=== PATIENT | female | born 2000 | race Caucasian/White ===

== ENCOUNTER 2024-07-18 10:52 | Outpatient (OUT) | payer BC, SELFPAY ==
[2024-07-18 11:22] LABS: Basophils Percent Auto 0.3 % (0.2-2.0); Eosinophils Absolute Auto 0.1 10^3/uL (0.0-0.7); Eosinophils Percent Auto 0.8 % (0.9-7.0); Hematocrit 37.3 % (36.0-48.0); Immature Granulocytes Abs Auto 0.01 10^3/uL (0.00-0.03); Immature Granulocytes Pct Auto 0.2 % (0.0-0.5); Lymphocytes Absolute Auto 1.4 10^3/uL (1.2-3.8); Lymphocytes Percent Auto 22.8 % (20.5-60.0); Mean Corpuscular HGB Conc 34.9 g/dL (29.9-35.2); Mean Corpuscular Hemoglobin 31.2 pg (26.7-34.0); Mean Corpuscular Volume 89.4 fL (81.0-99.0); Mean Platelet Volume 9.5 fL (9.5-13.5); Monocytes Absolute Auto 0.6 10^3/uL (0.3-0.8); Neutrophils Absolute Auto 4.2 10^3/uL (1.4-6.5); Neutrophils Percent Auto 66.9 % (43.0-75.0); Platelet Count 248 10^3/uL (150-450); Red Blood Count 4.17 10^6/uL (4.20-5.40); Red Cell Distribution Width 11.9 % (11.0-15.0); White Blood Count 6.2 10^3/uL (4.0-11.0)
[2024-07-18 11:25] LABS: BOX Test Reference Lab UNITY; BOX Test Sent Out UNITY
[2024-07-18 11:34] LABS: Estimated Average Glucose 97 mg/dL
[2024-07-18 11:39] LABS: Amphetamine Screen Urine NEGATIVE (NEGATIVE); Barbiturates Screen Urine NEGATIVE (NEGATIVE); Benzodiazepines Screen Urine NEGATIVE (NEGATIVE); Buprenorphine Screen Urine NEGATIVE (NEGATIVE); Cannabinoid Screen Urine NEGATIVE (NEGATIVE); Cocaine Screen Urine NEGATIVE (NEGATIVE); Methadone Screen Urine NEGATIVE (NEGATIVE); Methamphetamines Screen Urine NEGATIVE (NEGATIVE); Opiate Screen Urine NEGATIVE (NEGATIVE); Oxycodone Screen Urine NEGATIVE (NEGATIVE); Phencyclidine Screen Urine NEGATIVE (NEGATIVE); Tricyclic Antidepressant Urine NEGATIVE (NEGATIVE)
[2024-07-19 08:14] LABS: HBsAg Screen Negative (Negative); HCV Ab Non Reactive (Non Reactive); HIV Ab/p24 Ag Screen Non Reactive (Non Reactive); Rubella Antibodies, IgG 1.46 index (Immune >0.99)
[2024-07-19 10:08] LABS: Rapid Plasma Reagin, Quant Non Reactive titer (NonRea<1:1)
== END 2024-07-18 10:53 | disposition home or self-care (01) ==
LOC: LAB 10:52
PROVIDERS: PCP Family Medicine; Visit Provider Obstetrics & Gynecology
DX: Z34.01 Encounter for supervision of normal first pregnancy, first trimester (principal); Z36.0 Encounter for antenatal screening for chromosomal anomalies; N92.6 Irregular menstruation, unspecified
CPT/HCPCS: 36415; 80307; 83036; 85025; 86592; 86762; 86803; 86850; 86900; 86901; 87086; 87340; 87389

== ENCOUNTER 2024-08-31 15:34 | Outpatient (OUT) | payer BC, SELFPAY ==
[2024-08-31 16:24] LABS: Thyroid Stimulating Hormone 1.413 uIU/mL (0.358-3.740)
== END 2024-08-31 15:35 | disposition home or self-care (01) ==
LOC: LAB 15:34
PROVIDERS: PCP Family Medicine; Visit Provider Obstetrics & Gynecology
DX: E06.3 Autoimmune thyroiditis (principal)
CPT/HCPCS: 36415; 84443

== ENCOUNTER 2024-09-28 15:41 | Outpatient (OUT) | payer BC, SELFPAY ==
[2024-09-28 17:03] LABS: Thyroid Stimulating Hormone 0.836 uIU/mL (0.358-3.740)
== END 2024-09-28 15:42 | disposition home or self-care (01) ==
LOC: LAB 15:41
PROVIDERS: PCP Family Medicine; Visit Provider Obstetrics & Gynecology
DX: E06.3 Autoimmune thyroiditis (principal)
CPT/HCPCS: 36415; 84443

== ENCOUNTER 2024-10-06 13:53 | Outpatient (OUT) | payer BC, SELFPAY ==
--- NOTE | 2024-10-06 13:58 | US_ITS ---
[address] [address] Patient Name: ALETA ELLINGTON MRN: [id number] date: 2000 Sex: F Assigned Patient Location: US Current Patient Location: Accession/Order Number: [id number] Exam Date: 10/06/2024 14:25 Report Date: 10/06/2024 14:26 At the request of: SINTIA MARIE DO Procedure: US OB cervical length Cervical length ultrasound. Reason for exam: Abdominal cramping. TECHNIQUE: Transvaginal imaging of the gravid uterus was obtained. FINDINGS: Cervical length measures 4.53 cm without evidence of funneling. heart rate 158 bpm. US/US OB cervical length Impression: Normal cervical length without evidence of funneling. Impression dictated by: Jermaine Nguyễn Jr., D.O. 10/06/2024 2:26 PM Dictation Location: [place] [address] Electronically authenticated by: [id number] Y Date: 10/06/2024 14:26
== END 2024-10-06 13:54 | disposition home or self-care (01) ==
LOC: US 13:53
PROVIDERS: PCP Family Medicine; Visit Provider Obstetrics & Gynecology
DX: O26.892 Other specified pregnancy related conditions, second trimester (principal); Z3A.20 20 weeks gestation of pregnancy; R10.9 Unspecified abdominal pain
CPT/HCPCS: 76817

== ENCOUNTER 2024-10-28 18:38 | Outpatient (REF) | payer BC, SELFPAY ==
--- OUTSIDE RECORDS SUMMARY | 2024-10-28 18:44 | XMS_ITS | CCD ---
Author Organization [facility] Clini[facility] Care Team Providers Care Burrer Machine Name Role Phone BECERRIL, DAVID P Unavailable Unavailable BECERRIL, DAVID P Unavailable Unavailable BECERRIL, DAVID P Unavailable Unavailable BECERRIL, DAVID P Unavailable Unavailable BECERRIL, DAVID P Unavailable Unavailable BLANCA PABLO AM Unavailable Unavailable BLANCA PABLO AM Unavailable Unavailable SELF, REFERRED Unavailable Unavailable ROSALIE PAYNE Unavailable Unavailable Unavailable Primary Care Provider UnavailRosalie Muhammad MD Primary Care Provider DAVID DOMINGUEZ Attending Unavailable ARTIS YODER Attending Unavailable Sandeep Ramirez Unavailable Carlie Thomas Unavailable Adriana Evangelista Unavailable WILLIAM ., DR PATRICIO Admitting Unavailable WILLIAM ., DR PATRICIO Attending Unavailable REQUEST, NONE LISTED Primary Care Unavaila ble WILLIAM ., DR PATRICIO Consulting Unavailable WILLIAM ., DR PATRICIO Admitting Unavailable WILLIAM ., DR PATRICIO Attending Unavailable REQUEST, DR NONE LISTED Primary Care Unavaila ble WILLIAM ., DR PATRICIO Consulting Unavailable Kristine, Destinee Unavailable ROSALIE PAYNE Primary Care Physician Unavail able Rosalie Payne MD Primary Care Provider Pocanaly, Myron Washburn Admitting Unavailable PocosMyron Referring Unavailable Pocos, Myron Washburn Attending Unavailable Pocos, Myron Washburn Referring Unavailable Pocos, Myron Washburn Attending Unavailable Myron Rojsa Admitting Unavailable MD Rosalie Payne Primary Care Provider [phone] DO Marcelle Espinosa Attending Provider [phone] Marcelle Espinosa Attending Unavailable Marcelle Espinosa Admitting Unavailable Rosalie Payne Primary Care Unavailable Rosalie Payne MD Primary Care Provider Rosalie Payne MD Primary Care Provider Rosalie Payne MD Unavailable DOC THOMAS Attending Unavailable LINDAPRETTY Attending Unavailable WILLIAMDOC Attending Unavailable TATTERSALL, JENNIFER Attending Unavailable POCOS, MYRON Washburn Referring Unavailable PEPE KIRBY Attending Unavailable POCOS, MYRON Washburn Referring Unavailable VIEIRANEREYDA Attending Unavailable POCOS, MYRON Washburn Referring Unavailable POCOS, MYRON Washburn Referring Unavailable POCOS, MYRON Washburn Attending Unavailable POCOS, MYRON Washburn Referring Unavailable TATTERSALLJENNIFER Attending Unavailable POCOS, MYRON Washburn Referring Unavailable VIEIRA, NEREYDA Attending Unavailable POCOS, MYRON Washburn Referring Unavailable TATTERSALLJENNIFER Attending Unavailable POCOS, MYRON Washburn Referring Unavailable VIEIRANEREYDA Attending Unavailable POCOS, MYRON Washburn Referring Unavailable BROWNKELVIN Attending Unavailable BROWNKELVIN Referring Unavailable PEPE KIRBY Attending Unavailable POCOS, MYRON Washburn Referring Unavailable VIEIRANEREYDA Attending Unavailable POCOS, MYRON Washburn Referring Unavailable PEPE KIRBY Attending Unavailable POCOS, MYRON Washburn Referring Unavailable HEMEROSALIE CHRISTENSEN Attending Unavailable POCOS, MYRON Washburn Attending Unavailable Allergies Allergy Classification Reported Allergen(s) Allergy Type Date of Onset Reaction(s) Facility Latex (1 source) Latex Substance Allergy 1 [facility] Macrolides (antibiotic) (1 source) Azithromycin Drug Allergy 1 [facility] (20 sources) Azithromycin; Translations: [azithromycin] Drug Allergy 1 [facility] (10 sources) Latex; Translations: [Latex] Propensity to adverse reactions to drug 1 [facility] (1 source) Azithromycin Drug Allergy 0 [facility] (1 source) natural latex rubber Drug allergy (disorder) [facility] (2 sources) Banana Extract; Translations: [Banana] Drug Allergy Vomiting (disorder) [facility] (20 sources) Midodrine; Translations: [midodrine] Drug Allergy 3 Numbness [facility] (20 sources) Latex Allergy to substance 1 Rash [facility] (1 source) Azithromycin Drug Allergy 4 [facility] Repository (1 source) Latex Drug allergy (disorder) 4 [facility] Rep[facility] Medications Current Medications Medication Drug Class(es) Dates Sig (Normalized) Sig (Original) [id number] 200 actuat albuterol 0.09 mg/actuat metered dose inhaler (2 sources) beta2-Adrenergic Agonist Start: 08-21-2021 take 2 puff(s) by inhalation four times daily as needed Albuterol Sulfate HFA 108 (90 Base) MCG/ACT 2 puffs Inhalation 4 times a day prn Aug, Active Start: 08-21-2021 take 2 puff(s) by in halation four times daily as needed Albuterol Sulfate HFA 108 (90 Base) MCG/ACT 2 puffs Inhalation 4 times a day prn Aug, Not-Taking/PRN fluticasone propionate 0.05 mg/actuat metered dose nasal spray (4 sources) Corticosteroid Start: 04-01-2023 fluticasone (F lonase) 50 MCG/ACT nasal spray Start: 04-01-2023 take 1 spray(s) nasa l route once daily Fluticasone Propionate 50 MCG/ACT 1 spray in each nostril Nasally Once a day for 14 Mar, Active Start: 08-21-2021 take 2 spray(s) nasa l route once daily as needed Fluticasone Propionate 50 MCG/ACT 2 sprays Nasally Once a day for 14 day(s) Aug, Not-Taking/PRN Start: 08-21-2021 take 2 spray(s) nasa l route once daily Fluticasone Propionate 50 MCG/ACT 2 sprays Nasally Once a day for 14 day(s) Aug, Active ibuprofen 600 mg oral tablet (20 sources) Nonsteroidal Anti-inflammatory Drug Start: 12-14-2020 take 1 tablet by mouth four times daily as needed for pain ibuprofen (ADVIL;MOTRIN) 600 MG tablet Take 1 tablet by mouth 4 times daily as needed for Pain 30 tablet 0 12/14/2020 Active End: 07-16-2024 ibuprofen 200 MG tablet Take by mouth. 07/16/2024 Discontinued magnesium oxide 400 mg oral tablet (5 sources) Start: 07-16-2024 End: 08-15-2024 take 1 tablet by mouth once daily magnesium oxide (Mag-Ox) 400 MG tablet Indications: Cluster headache, not intractable, unspecified chronicity pattern Take 1 tablet (400 mg) by mouth Daily 30 tablet 6 07/16/2024 08/15/2024 Active ondansetron 4 mg disintegrating oral tablet (15 sources) Serotonin-3 Receptor Antagonist Start: 10-05-2024 End: 11-04-2024 take 1 tablet by mouth every six hours for nausea ondansetron ODT (Zofran-ODT) 4 MG disintegrating tablet Indications: Nausea and vomiting during ([facility]) Take 1 tablet (4 mg) by mouth every 6 (six) hours if needed for nausea or vomiting 30 tablet 3 10/05/2024 11/04/2024 Active Start: 08-26-2024 End: 09-30-2024 take 1 tablet by mouth every six hours for nausea ondansetron ODT (Zofran-ODT) 4 MG disintegrating tablet Indications: Nausea and vomiting during ([facility]) Take 1 tablet (4 mg) by mouth every 6 (six) hours if needed for nausea or vomiting 30 tablet 3 08/26/2024 09/30/2024 Active Start: 07-06-2024 End: 08-05-2024 take 1 tablet by mouth every six hours for nausea ondansetron ODT (Zofran-ODT) 4 MG disintegrating tablet Indications: Nausea and vomiting during Take 1 tablet (4 mg) by mouth every 6 (six) hours if needed for nausea or vomiting 30 tablet 2 07/06/2024 08/05/2024 Active penicillin v potassium 500 mg oral tablet (1 source) Start: 05-01-2021 take 1 tablet by mouth every eight hours Penicillin V Potassium 500 MG 1 tablet Orally tid for 10 day(s) Apr, Active tiZANidine 4 mg oral tablet (2 sources) Central alpha-2 Adrenergic Agonist Start: 12-14-2020 take 1 tablet by mouth every eight hours as needed for pain tiZANidine (ZANAFLEX) 4 MG tablet Take 1 tablet by mouth every 8 hours as needed (pain and muscle tension/cramps) 10 tablet 0 12/14/2020 Active Completed/Discontinued Medications Medication Drug Class(es) Dates Sig (Normalized) Sig (Original) acetaminophen 325 mg oral tablet (1 source) Start: 09-19-2020 End: 09-19-2020 acetaminophen (TYLENOL) tablet 650 mg Citalopram (7 sources) Serotonin Reuptake Inhibitor Citalopram Hydrobromide Not-Taking/PRN take 1 tablet by mouth once vincenzo y citalopram (CELEXA) 20 MG tablet Take 20 mg by mouth daily 0 Active Citalopram [place] bromide Active clotrimazole 10 mg oral lozenge (3 sources) Azole Antifungal Start: 05-11-2021 Clotrimazole 10 MG 1 wenceslao Mouth/Throat Three times a day for 7 day(s) Apr, Not-Taking/PRN medroxyPROGESTERone (4 sources) Progestin Depo-Provera Not-Taking/PRN Depo-Provera Act nicolle metoclopramide 10 mg oral tablet (12 sources) Dopamine-2 Receptor Antagonist Start: 07-16-2024 End: 09-30-2024 metoclopramide (Reglan) 10 MG tablet Indications: Nausea/vomiting in ([facility]) Take 1 tablet (10 mg) by mouth in the morning and 1 tablet (10 mg) at noon and 1 tablet (10 mg) in the evening. Take before meals. Take 1 tablet by mouth 30 minutes prior to meals 3 times daily as needed for nausea. 90 tablet 2 07/16/2024 09/30/2024 Discontinued naproxen sodium 550 mg oral tablet (2 sources) Nonsteroidal Anti-inflammatory Drug Start: 05-24-2021 End: 05-24-2021 naproxen sodium (ANAPROX) tablet 550 mg Start: 05-24-2021 take 1 tablet by aurea th twice daily at mealtime naproxen (NAPROSYN) 500 MG tablet Take 1 tablet by mouth 2 times daily (with meals) 20 tablet 1 05/24/2021 Active pantoprazole 40 mg delayed release oral tablet (17 sources) Proton Pump Inhibitor Start: 02-17-2024 End: 09-30-2024 take 1 tablet by mouth before mealtime pantoprazole (ProtoNix) 40 MG EC tablet Take 40 mg by mouth in the morning. Take before meals. 02/17/2024 09/30/2024 Discontinued predniSONE 20 mg oral tablet (3 sources) Start: 08-21-2021 take 1 tablet by mouth every twelve hours predniSONE 20 MG 1 tablet Orally 2 times a day for 5 day(s) Aug, Not-Taking/PRN Start: 05-01-2021 take 1 tablet by aurea th every twelve hours predniSONE 20 MG 1 tablet Orally bid for 5 day(s) Apr, Active Problems Active Problems Problem Classification Problem Date Documented Da te Episodic/Chronic Abdominal pain (11 sources) Pelvic and perineal pain; Translations: [Right lower quadrant pain] Onset: 2 Episodic Cardiac dysrhythmias (20 sources) Postural orthostatic tachycardia syndrome ; Translations: [Postural orthostatic tachycardia syndrome (POTS)] Onset: 3 12-10-2022 Chronic Cardiac dysrhythmias (4 sources) Palpitations; Translations: [Palpitations] 10-28-2024 Episodic Coagulation and hemorrhagic disorders (1 source) Qualitative platelet defects; 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] Onset: 8 Chronic Esophageal disorders (4 sources) Gastroesophageal reflux disease; Translations: [Gastro-esophageal reflux disease without esophagitis] 07-25-2023 Chronic Headache; including migraine (1 source) Cluster headache; Translations: [Cluster headache syndrome, unspecified, not intractable] 07-16-2024 Chronic Immunizations and screening for infectious disease (4 sources) Contact with and (suspected) exposure to other viral communicable diseases; Translations: [Exposure to sexually transmissible disorder] Onset: 2 Resolved: 2 Episodic Malaise and fatigue (20 sources) Fatigue; Translations: [Chronic fatigue, unspecified] Onset: 3 12-10-2022 Chronic Menstrual disorders (20 sources) Disorder of menstruation; Translations: [Irregular menstruation, unspecified] Onset: 4 02-19-2024 Chronic Nausea and vomiting (4 sources) Nausea; Translations: [Nausea] 07-25-2023 Episodic Other bone disease and musculoskeletal deformities (20 sources) [place] Schlatter disease; 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] Onset: 3 12-10-2022 Chronic Other circulatory disease (1 source) Postural orthostatic tachycardia syndrome 04-03-2023 Episodic Other complications of (1 source) Vomiting of , unspecified; Translations: [Unspecified vomiting of , unspecified as to episode of care or not applicable] 07-16-2024 Episodic Other gastrointestinal disorders (2 sources) Diarrhea; Translations: [Diarrhea, unspecified] 07-25-2023 Episodic Other gastrointestinal disorders (2 sources) Diarrhea, unspecified; Translations: [Diarrhea] 07-25-2023 Episodic Other gastrointestinal disorders (1 source) Dysphagia; Translations: [Dysphagia, unspecified] 07-25-2023 Episodic Other gastrointestinal disorders (1 source) Dysphagia, unspecified; Translations: [Dysphagia, unspecified] 07-25-2023 Episodic Other injuries and conditions due to external causes (1 source) Closed injury of head; Translations: [Unspecified injury of head, initial encounter] Episodic Other injuries and conditions due to external causes (1 source) Injury of coccyx; Translations: [Unspecified injury of lower back, initial encounter] Episodic Other injuries and conditions due to external causes (2 sources) Injury of left knee; Translations: [Unspecified injury of left lower leg, initial encounter] 12-09-2023 Episodic Other nutritional; endocrine; and metabolic disorders (20 sources) 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 imbalance; Translations: [Other obesity due to excess calories] Onset: 3 12-10-2022 Chronic Other nutritional; endocrine; and metabolic disorders (1 source) H/O: hypothyroidism 04-03-2023 Episodic Other and delivery including normal (10 sources) ; Translations: [Encounter for supervision of normal , unspecified, unspecified trimester] 07-16-2024 Episodic Other screening for suspected conditions (not mental disorders or infectious disease) (8 sources) Encounter for screening for malignant neoplasm of cervix; Translations: [Patient encounter status] Onset: 3 Episodic Other upper respiratory infections (9 sources) Streptococcal sore throat; Translations: [Strep throat] Onset: 2 Resolved: 2 Episodic Residual codes; unclassified (2 sources) Gestation period, 11 weeks; Translations: [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 ] 08-05-2024 Episodic Residual codes; unclassified (2 sources) Gestation period, 15 weeks; Translations: [15 weeks gestation of ] 09-02-2024 Episodic Residual codes; unclassified (2 sources) Gestation period, 19 weeks; Translations: [19 weeks gestation of ] 09-30-2024 Episodic Residual codes; unclassified (2 sources) Gestation period, 23 weeks; Translations: [23 weeks gestation of ] 10-28-2024 Episodic Substance-related disorders (20 sources) Cigarette smoker ; Translations: [Nicotine dependence, cigarettes, uncomplicated] Onset: 3 12-10-2022 Chronic Superficial injury; contusion (1 source) Contusion of left knee; Translations: [Contusion of left knee, initial encounter] Episodic Thyroid disorders (20 sources) Gabby thyroiditis; Translations: [Autoimmune thyroiditis] Onset: 3 12-10-2022 Chronic Unclassified (2 sources) Unknown / UNK(Unknown) Onset: Past or Other Problems Problem Classification Problem Date Documented Da te Episodic/Chronic Chronic obstructive pulmonary disease and bronchiectasis (1 source) Bronchitis, not specified as acute or chronic Onset: 08-21-2021 Resolved: 08-21-2021 Episodic Influenza (5 sources) Influenza; Translations: [Influenza A] Mycoses (1 source) Candidal stomatitis Onset: 05-11-2021 Resolved: 05-11-2021 Episodic Other circulatory disease (4 sources) Orthostatic hypotension; Translations: [ORTHOSTATIC HYPOTENSION] Onset: 03-13-2017 Episodic Other circulatory disease (20 sources) Low blood pressure; Translations: [Hypotension, unspecified] Onset: 12-10-2022 12-10-2022 Episodic Other non-traumatic joint disorders (20 sources) Pain in left knee; Translations: [Pain in joint, lower leg] Onset: 04-22-2023 04-22-2023 Episodic Other nutritional; endocrine; and metabolic disorders (20 sources) Body mass index 25-29 - overweight; Translations: [Overweight] Onset: 12-10-2022 Resolved: 02-19-2024 12-10-2022 Episodic Ovarian cyst (20 sources) Cyst of ovary; Translations: [Unspecified ovarian cyst, unspecified side] Onset: 12-10-2022 12-10-2022 Episodic Results Test Name Value Interpretation Reference Range Facility Urinalysis macro (dipstick) panel (U)on 10-28-2024 Bilirubin, UA Positive Negative - 4(70) +++ mg/dL [facility] Blood, UA Negative Negative - 50 Randall/mcL [facility] Clarity, UA Clear [facility] Color, UA Yellow [facility] Glucose, UA Positive Negative - 1999(110) ++++ mg/dL [facility] Interpretation and review of laboratory results Abnormal [facility] Ketones, UA Positive Negative - 160(16) ++++ mg/dL [facility] Leukocytes, UA Negative Negative - 500+++ Rick/mcL [facility] Nitrite, UA Negative Negative - Positive [facility] pH, UA 6 5 - 9 [facility] Protein, UA Positive Negative - 1999(20) ++++ mg/dL [facility] Spec Grav, UA 1.03 1 - 1.03 [facility] Urobilinogen, UA 0.2 0.2 - 12 mg/dL [facility] US OB CERVICAL LENGTHon 09-16 [place] [address] Ultrasound Report Signed Patient: ALETA CASTRO MR#: [id number] : 2000 Acct:[id number] Age/Sex: 24 / F ADM Date: 10/06/24 Loc: US Attending Dr: Doc Thomas D.O. Ordering Physician: Doc Thomas D.O. Date of Service: 10/06/24 Procedure(s): US OB cervical length Accession Number(s): [id number] cc: Doc Thmoas D.O.; ROSALIE PAYNE [place] [id number] Patient Name: ALETA CASTRO MRN: [id number] date: 2000 Sex: F Assigned Patient Location: US Current Patient Location: US Accession/Order Number: [id number] Exam Date: 10/06/2024 14:25 Report Date: 10/06/2024 14:26 At the request of: DOC THOMAS DO Procedure: US OB cervical length Cervical length ultrasound. Reason for exam: Abdominal cramping. TECHNIQUE: Transvaginal imaging of the gravid uterus was obtained. FINDINGS: Cervical length measures 4.53 cm without evidence of funneling. heart rate 158 bpm. US/US OB cervical length Impression: Normal cervical length without evidence of funneling. Impression dictated by: Jermaine Nguyễn Jr., D.O. 10/06/2024 2:26 PM Dictation Location: [place] [address] Electronically authenticated by: [id number] Y Date: 10/06/2024 14:26 Dictated By: Jermaine Nguyễn M.D. Signed By: 10/06/24 1428 DD/ 1426 TD/TT: Skin Diver: [facility] Radiology, Radiologevon rai MD - 10/06/2024 [place] [address] Ultrasound Report Signed Patient: ALETA CASTRO MR#: [id number] : 2000 Acct:[id number] Age/Sex: 24 / F ADM Date: 10/06/24 Loc: US Attending Dr: Doc Thomas D.O. Ordering Physician: Doc Thomas D.O. Date of Service: 10/06/24 Procedure(s): US OB cervical length Accession Number(s): [id number] cc: Doc Thomas D.O.; ROSALIE PAYNE [place] [address] Patient Name: ALETA CASTRO MRN: [facility]:[id number] date: 2000 Sex: F Assigned Patient Location: Current Patient Location: US Accession/Order Number: [id number] Exam Date: 10/06/2024 14:25 Report Date: 10/06/2024 14:26 At the request of: DOC THOMAS DO Procedure: US OB cervical length Cervical length ultrasound. Reason for exam: Abdominal cramping. TECHNIQUE: Transvaginal imaging of the gravid uterus was obtained. FINDINGS: Cervical length measures 4.53 cm without evidence of funneling. heart rate 158 bpm. US/US OB cervical length Impression: Normal cervical length without evidence of funneling. Impression dictated by: Jermaine Nguyễn Jr., D.O. 10/06/2024 2:26 PM Dictation Location: [place] [address] Electronically authenticated by: [id number] Y Date: 10/06/2024 14:26 Dictated By: Jermaine Nguyễn M.D. Signed By: 10/06/24 1428 DD/ 142 TD/TT: Skin Diver: [facility] Radiology Study observation (narrative) [facility] US OB CERVICAL LENGTHOrdered By: Radiologist Radiology on 10-06-2024 [facility] Work Phone: US OB 14+ WEEKS ANATOMY SCAN on 09-30-2024 US OB 14+ WEEKS ANATOMY SCAN FINDINGS: A single, live intrauterine is present with normal cardiac rate of 146 beats per minute. Normal activity and amniotic fluid volume. Morphology is grossly normal. The cervix is long and closed, 4.1cm. The placenta is posterior inferior aspect 4.0 cm from the closed internal cervical os. The current sonographic age is 20 weeks and 0 days, based on the following measurements: BPD 4.5 cm (19 weeks, 4 days) Head Circumference 17.1cm (19 weeks,5 days) Abdominal Circumference 15.2cm (20 weeks, 3 days) Femur Length 3.3cm ( 20weeks, 3 days) Presentation Cephalic Placenta Posterior Weight (g) by Percentile 85.3 % * These measurements result in an estimated date of delivery of February 17, 2025 The current estimated weight is 3 45 +/-52 grams ( pound, 12 ounces). IMPRESSION: Single, live intrauterine , current sonographic age of 20 weeks and 0 days, with an estimated date of delivery of February 17, 2025 * Estimated Weight (g) by Percentile is based upon an accurate estimated age based on last menstrual period. TRANSCRIBED BY: ELECTRONICALLY SIGNED BY: Jermaine Beard MD Normal Not Available Comment on above: Order Comment: US OB ANATOMY SINGLE W US OB CERVICAL LENGTH Estimated Date of Delivery: 02/20/25 Gestational Age as of 09/02/2024: 15w4d Urinalysis macro (dipstick) panel (U)on 09-30-2024 Bilirubin, UA Negative Negative - 4(70) +++ mg/dL [facility] Blood, UA Negative Negative - 50 Randall/mcL [facility] Clarity, UA Clear [facility] Color, UA Yellow [facility] Glucose, UA Negative Negative - 1999(110) ++++ mg/dL [facility] Interpretation and review of laboratory results Normal [facility] Ketones, UA Negative Negative - 160(16) ++++ mg/dL [facility] Leukocytes, UA Negative Negative - 500+++ Rick/mcL [facility] Nitrite, UA Negative Negative - Positive [facility] pH, UA 6 5 - 9 [facility] Protein, UA Negative Negative - 1999(20) ++++ mg/dL [facility] Spec Grav, UA 1.005 1 - 1.03 [facility] Urobilinogen, UA 1.0 0.2 - 12 mg/dL [facility] ALL THYROID STIM HORMONEon 0 - TSH Qn 0.836 m[IU]/L [facility] macro (dipstick) panel (U)on 09-02-2024 Bilirubin, UA Negative Negative - 4(70) +++ mg/dL [facility] Blood, UA Negative Negative - 50 Randall/mcL [facility] Clarity, UA Clear [facility] Color, UA Yellow [facility] Glucose, UA Negative Negative - 1999(110) ++++ mg/dL [facility] Interpretation and review of laboratory results Normal [facility] Ketones, UA Negative Negative - 160(16) ++++ mg/dL [facility] Leukocytes, UA Negative Negative - 500+++ Rick/mcL [facility] Nitrite, UA Negative Negative - Positive [facility] pH, UA 6 5 - 9 [facility] Protein, UA Negative Negative - 1999(20) ++++ mg/dL [facility] Spec Grav, UA 1.025 1 - 1.03 [facility] Urobilinogen, UA 0.2 0.2 - 12 mg/dL [facility] ALL THYROID STIM HORMONEon 0 08-31-2024 TSH Qn 1.413 m[IU]/L [facility] Urinalysis macro (dipstick) panel (U)on 08-05-2024 Bilirubin, UA Negative Negative - 4(70) +++ mg/dL [facility] Blood, UA Negative Negative - 50 Randall/mcL [facility] Clarity, UA Clear [facility] Color, UA Yellow [facility] Glucose, UA Negative Negative - 1999(110) ++++ mg/dL [facility] Interpretation and review of laboratory results Abnormal [facility] Ketones, UA Positive Negative - 160(16) ++++ mg/dL [facility] Comment on above: 40 Leukocytes, UA Trace Negative - 500+++ Rick/mcL [facility] Nitrite, UA Negative Negative - Positive [facility] pH, UA 6.5 5 - 9 [facility] Protein, UA Negative Negative - 1999(20) ++++ mg/dL [facility] Spec Grav, UA 1.025 1 - 1.03 [facility] Urobilinogen, UA 1.0 0.2 - 12 mg/dL [facility] BOX TESTon 07-18-2024 [facility] TB DRUG SCREEN RAPID (URINE )on 07-18-2024 AMPHETAMINE SCREEN URINE Negative NEGATIVE [facility] BARBITURATES SCREEN URINE Negative NEGATIVE [facility] BENZODIAZEPINES SCREEN URINE Negative NEGATIVE [facility] BUPRENORPHINE SCREEN URINE Negative NEGATIVE [facility] Comment on above: DRUG CLASS TEST SYST EM CUT-OFF CONCENTRATIONS ARE FOLLOWS: AMP (Amphetamine): 500 ng/mL BAR (Barbiturates): 200 ng/mL BZO (Benzodiazepines): 150 ng/mL BUP (Buprenorphine): 10 ng/mL ROMA (Cocaine): 150 ng/mL mAMP (Methamphetamine): 500 ng/mL MTD (Methadone): 200 ng/mL OPI (Opiates): 100 ng/mL OXY (Oxycodone): 100 ng/mL PCP (Phencyclidine): 25 ng/mL THC (Cannabinoids): 50 ng/mL TCA (Trycyclic Antidepressants): 300 ng/mL CANNABINOID SCREEN URINE Negative NEGATIVE [facility] COCAINE SCREEN URINE Negative NEGATIVE [facility] METHADONE SCREEN URINE Negative NEGATIVE [facility] METHAMPHETAMINES SCREEN URINE Negative NEGATIVE [facility] OPIATE SCREEN URINE Negative NEGATIVE [facility] OXYCODONE SCREEN URINE Negative NEGATIVE [facility] PHENCYCLIDINE SCREEN URINE Negative NEGATIVE [facility] TRICYCLIC ANTIDEPRESSANT URINE Negative NEGATIVE [facility] CLINISYNC [facility] HCG ( test) Ql (U)o n 07-16-2024 Interpretation and review of laboratory results Abnormal [facility] Preg Test, Ur Positive Negative [facility] US OB TRANSVAGINALon 025 US OB TRANSVAGINAL EXAM: US OB TRANSVAG INAL HISTORY: Dating. LMP was 05/16/2024. . COMPARISON: None available TECHNIQUE: Two-dimensional transvaginal grayscale and color Doppler ultrasound imaging of the pelvis was performed. FINDINGS: The uterus demonstrates a normal homogeneous echotexture. The cervical os is closed. The right ovary measures 2.8 x 1.9 x 2.4 cm and demonstrates a normal echotexture. There is normal color Doppler flow. The left ovary measures 2.1 x 1.7 x 2.0 cm and demonstrates a normal echotexture. There is normal color Doppler flow. No fluid is present within the cul-de-sac. There is a single, live intrauterine gestation identified with a heart rate of 174 beats per minute and a crown-rump length measurement of 2.1 cm, correlating to a gestational age of 8 weeks 5 days (+/- 5 days). There is no subchorionic hemorrhage visualized. A yolk sac is visualized. IMPRESSION: 1. Single, live intrauterine gestation 8 weeks, 5 days by LMP. Today's ultrasound measurements correlate with a gestational age of 8 weeks 5 days (+/- 5 days). KIRK by today's ultrasound is 02/20/2025. 2. Normal color Doppler evaluation of the bilateral ovaries. Interpreted by: Electronically signed by REZA BOATENG II, MD, PHD at 19-Jul-2024 08:55:15 PM [facility] Normal Not Available Comment on above: Order Comment: US OB TRANSVAGINAL No LMP recorded. Urinalysis macro (dipstick) panel (U)on 07-16-2024 Bilirubin, UA Negative Negative - 4(70) +++ mg/dL [facility] Blood, UA Negative Negative - 50 Randall/mcL [facility] Clarity, UA Clear [facility] Color, UA Yellow [facility] Glucose, UA Negative Negative - 2000(110) ++++ mg/dL [facility] Interpretation and review of laboratory results Normal [facility] Ketones, UA Negative Negative - 160(16) ++++ mg/dL [facility] Leukocytes, UA Negative Negative - 500+++ Rick/mcL [facility] Nitrite, UA Negative Negative - Positive [facility] pH, UA 6.5 5 - 9 [facility] Protein, UA Negative Negative - 2000(20) ++++ mg/dL [facility] Spec Grav, UA 1.02 1 - 1.03 [facility] Urobilinogen, UA 1.0 0.2 - 12 mg/dL [facility] CBC W Auto Differential pane l (Bld)on 02-21-2024 Band form neutrophils (Bld) [#/Vol] CANCELED [facility] Comment on above: Result canceled by t he ancillary. Band form neutrophils/100 WBC (Bld) CANCELED % [facility] Comment on above: Result canceled by t he ancillary. Basophils (Bld) [#/Vol] 19 10*3/uL [facility] Basophils/100 WBC (Bld) 0.4 % [facility] Blasts (Bld) [#/Vol] CANCELED 0 cells/uL [facility] Comment on above: Result canceled by t he ancillary. Blasts/100 WBC (Bld) CANCELED % [facility] Comment on above: Result canceled by t he ancillary. Eosinophils (Bld) [#/Vol] 91 10*3/uL [facility] Eosinophils/100 WBC (Bld) 1.9 % [facility] Erythrocyte distribution width (RBC) [Ratio] 12.5 % 11.0 - 15.0 % [facility] Hematocrit (Bld) [Volume fraction] 38.9 % 35.0 - 45.0 % [facility] Hemoglobin (Bld) [Mass/Vol] 12.8 g/dL 11.7 - 15.5 g/dL [facility] Lymphocytes (Bld) [#/Vol] 1282 10*3/uL [facility] Lymphocytes/100 WBC (Bld) 26.7 % [facility] MCH (RBC) [Entitic mass] 30.6 pg 27.0 - 33.0 pg [facility] MCHC (RBC) [Mass/Vol] 32.9 g/dL 32.0 - 36.0 g/dL [facility] Comment on above: For adults, a slight decrease in the calculated MCHC value (in the range of 30 to 32 g/dL) is most likely not clinically significant; however, it should be interpreted with caution in correlation with other red cell parameters and the patient's clinical condition. MCV (RBC) [Entitic vol] 93.1 fL 80.0 - 100.0 fL [facility] Metamyelocytes (Bld) [#/Vol] CANCELED 0 cells/uL [facility] Comment on above: Result canceled by t he ancillary. Metamyelocytes/100 WBC (Bld) CANCELED % [facility] Comment on above: Result canceled by t he ancillary. Monocytes (Bld) [#/Vol] 422 10*3/uL [facility] Monocytes/100 WBC (Bld) 8.8 % [facility] Myelocytes (Bld) [#/Vol] CANCELED 0 cells/uL [facility] Comment on above: Result canceled by t he ancillary. Myelocytes/100 WBC (Bld) CANCELED % [facility] Comment on above: Result canceled by t he ancillary. Neutrophils (Bld) [#/Vol] 2986 10*3/uL [facility] Neutrophils/100 WBC (Bld) 62.2 % [facility] Nucleated RBC (Bld) [#/Vol] CANCELED 0 cells/uL [facility] Comment on above: Result canceled by t he ancillary. Nucleated RBC/100 WBC (Bld) [Ratio] CANCELED 0 /100 WBC [facility] Comment on above: Result canceled by t he ancillary. Platelet mean volume (Bld) [Entitic vol] 9.3 fL 7.5 - 12.5 fL [facility] Platelets (Bld) [#/Vol] 291 10*3/uL [facility] Promyelocytes (Bld) [#/Vol] CANCELED 0 cells/uL [facility] Comment on above: Result canceled by t he ancillary. Promyelocytes/100 WBC (Bld) CANCELED % [facility] Comment on above: Result canceled by t he ancillary. RBC (Bld) [#/Vol] 4.18 10*6/uL [facility] Service comment (Unsp spec) [Interp] CANCELED [facility] Comment on above: Result canceled by t he ancillary. Variant lymphocytes/100 WBC (Bld) CANCELED 0 - 10 % [facility] Comment on above: Result canceled by t he ancillary. WBC (Bld) [#/Vol] 4.8 10*3/uL [facility] Iron and Iron binding capaci ty panelon 02-21-2024 Iron [Mass/Vol] 101 ug/dL [facility] Iron binding capacity [Mass/Vol] 340 [facility] Iron saturation [Mass fraction] 30 [facility] Laboratory - Chemistry and C hemistry - challengeon 02-21-2024 Albumin [Mass/Vol] 4.8 g/dL 3.6 - 5.1 g/dL [facility] Albumin/Globulin [Mass ratio] 1.8 {ratio} [facility] ALP [Catalytic activity/Vol] 65 U/L 31 - 125 U/L [facility] ALT [Catalytic activity/Vol] 16 U/L 6 - 29 U/L [facility] AST [Catalytic activity/Vol] 14 U/L 10 - 30 U/L [facility] Bilirubin [Mass/Vol] 0.6 mg/dL 0.2 - 1 .2 mg/dL [facility] Calcium [Mass/Vol] 9.3 mg/dL 8.6 - 10. 2 mg/dL [facility] Chloride [Moles/Vol] 107 mmol/L 98 - 11 0 mmol/L [facility] CO2 [Moles/Vol] 24 mmol/L 20 - 32 mmol/L [facility] Cortisol [Mass/Vol] 14.3 ug/dL mcg/dL [facility] Comment on above: Reference Range: For 8 a.m.(7-9 a.m.) Specimen: 4.0-22.0 Reference Range: For 4 p.m.(3-5 p.m.) Specimen: 3.0-17.0 * Please interpret above results accordingly * Creatinine [Mass/Vol] 0.71 mg/dL 0.50 - 0.96 mg/dL [facility] GFR/1.73 sq M.predicted among non-blacks MDRD (S/P/Bld) [Vol rate/Area] 122 mL/min/{1.73_m2} > OR = 60 mL/min/1.73m 2 [facility] Globulin (S) [Mass/Vol] 2.6 g/dL [facility] Glucose [Mass/Vol] 95 mg/dL 65 - 99 mg/dL [facility] Comment on above: Fasting reference interval Potassium [Moles/Vol] 4.2 mmol/L 3.5 - 5.3 mmol/L [facility] Protein [Mass/Vol] 7.4 g/dL 6.1 - 8.1 g/dL [facility] Sodium [Moles/Vol] 139 mmol/L 135 - 146 mmol/L [facility] Urea nitrogen [Mass/Vol] 16 mg/dL 7 - 25 mg/dL [facility] Urea nitrogen/Creatinine [Mass ratio] SEE NOTE: [facility] Comment on above: Not Reported: BUN an d Creatinine are within reference range. Laboratory - Serology - non- microon 02-21-2024 Thyroglobulin Ab Qn 153 [IU]/mL High < or = 1 IU/mL [facility] TPO Ab Qn 27 [IU]/mL High NINF [facility] No Panel Informationon 02-20 Interpretation and review of laboratory results Abnormal [facility] Performing Organizat ion Information Site ID: QTW Name: [facility] Address: [address] [place] [id number] Director: Urvashi Gtz [facility] Performing Organizat ion Information Site ID: QPT Name: [facility] Address: [address] [place] [address], [address] [place] [address] Director: Yonis Beck MD [facility] T3, [facility] 02-05-2024 Free T3 [Mass/Vol] 3.6 pg/mL Normal 2.3-4.2 [facility] Comment on above: Performed By: #### 8 47, [id number], 86 #### [facility] [address], [address] [place] [address] Rn Cardiac Cath: Yonis Beck MD T4, FREE 02-05-2024 Free T4 [Mass/Vol] 1.1 ng/dL Normal 0.8-1.8 [facility] Comment on above: Order Comment: FASTI NG:NO FASTING: NO Performed By: #### 8 91, 75981, 546 #### [facility] [address], [address] [place] [address] Rn Cardiac Cath: Yonis Beck MD TSHon 02-05-2024 TSH Qn 1.98 m[IU]/L Normal [facility] Comment on above: Result Comment: Refe rence Range > or = 20 Years 0.40-4.50 Ranges First trimester 0.26-2.66 Second trimester 0.55-2.73 Third trimester 0.43-2.91 Performed By: #### 8 99, [id number], 866 #### [facility] [address], [address] [place] [address] Rn Cardiac Cath: Yonis Beck MD MR KNEE LEFT WO IV CONTRASTo n 10-18-2023 MR KNEE LEFT WO IV CONTRAST Exam: MR KNEE LEFT WO IV CONTRAST History: Knee pain. Technique: Multiplanar multisequence MRI of the knee was performed without contrast. Comparison: Radiographs September 25, 2023 Findings: Quadriceps and patellar tendons are intact. Small joint effusion. Postsurgical changes of anterior cruciate ligament reconstruction. The ACL graft is intact. The posterior cruciate ligament is intact. The medial collateral ligament, lateral collateral ligament, and popliteus are intact. Truncation of the inner margin of the body of the lateral meniscus may be postsurgical or due to incomplete radial tear. The medial meniscus is intact. No well-defined or measurable cartilage defect. Popliteal fossa structures are intact. No Jon cyst. IMPRESSION: Incomplete radial tear of the inner margin of the body of the lateral meniscus versus postsurgical changes. ELECTRONICALLY SIGNED BY: Rupesh Spivey DO Normal Not Available HCG ( test) Ciro quintanilla Ql (U)Ordered By: Marcelle Espinosa on 09-02-2023 HCG ( test) Ql (U) Negative [facility] HCG,Urineon 09-02-2023 Beta HCG ( test) Ql (U) Negative Normal [facility] Comment on above: Result Comment: PERF ORMED BY: [place] [address] PATHOLOGIST TALLOW MAKER RAYMOND SUERO M.D. Performed By: #### U HCG #### [address] 09-02-2023 L Specimen: [id number] Received: 09/03/23 Status: SOUT Req Num: [id number] Spec Type: Surgical Subm Dr: Marcelle Espinosa DO Tissues: A Small Intestine - Biopsy/Polyp (SMALL BOWEL BX) B GASTRIC FOR HP (GASTRIC HP) C Esophagus Biopsy (DISTAL ESOPHAGUS) D Esophagus Biopsy (PROXIMAL ESOPHAGUS) E Colon Biopsy (RANDOM RT COLON) F Colon Biopsy (RANDOM LT COLON) Procedures: HE/12, Gross/Micro L4/6, H PYLORI, IHC First AB Age/ Patient Sex Location Account Attending Physician Aleta Castro / [id number] Marcelle Espinosa DO SPEC NUM: [id number] RECD: 09/03/23 STATUS: FRANKLYN GONZALES NUM: [id number] MIRIAM: 09/02/23- SUBM DR: Marcelle Espinosa DO ENTERED: 09/03/[address] [facility] [address]: SPEC TYPE: Surgical DEPT: S ORDERED: HE/12, Gross/Micro L4/6, H PYLORI, IHC First AB ORDERED: HE/12, Gross/Micro L4/6, H PYLORI, IHC First AB Pathological Diagnosis A, small bowel biopsy: -Small bowel mucosa with minor suggested chronic duodenitis, otherwise without erosion, villous blunting, or any abnormal or significant lymphocytic exocytosis identified, therefore also no obvious features of celiac sprue or gluten hypersensitivity observed B, gastric biopsy: -Antral and oxyntic mucosa with mild reactive gastropathy, including occasionally noted eosinophils in deeper stroma of the antral fragment, and minor congestion in the other fragment, otherwise without intestinal metaplasia, erosion, or any significant stromal chronic inflammation observed -H. pylori immunostain with appropriate control is also negative for identified Helicobacter organism or infection C, distal esophagus biopsy: -Esophageal squamous mucosa without any specific diagnostic abnormality observed D, proximal esophagus biopsy: -Esophageal squamous mucosa with mild squamous acanthosis and occasionally associated Specimen: [id number] Received: 09/03/23 Status: FRANKLYN Gonzales Num: [id number] Spec Type: Surgical Subm Dr: Marcelle Espinosa DO Tissues: A Small Intestine - Biopsy/Polyp (SMALL BOWEL BX) B GASTRIC FOR HP (GASTRIC HP) C Esophagus Biopsy (DISTAL ESOPHAGUS) D Esophagus Biopsy (PROXIMAL ESOPHAGUS) E Colon Biopsy (RANDOM RT COLON) F Colon Biopsy (RANDOM LT COLON) Procedures: , Gross/Micro L4/6, H PYLORI, IHC First AB Patient: Aleta Castro [id number] (Continued) Specimen: [id number] Received: 09/03/23 (Continued) Pathological Diagnosis (Continued) Signed (signature on file) Heather Villegas MD 09/05/23 1417 Specimen: [id number] Received: 09/03/23 Status: FRANKLYN Gonzales Num: [id number] Spec Type: Surgical Subm Dr: Marcelle Espinosa DO Tissues: A Small Intestine - Biopsy/Polyp (SMALL BOWEL BX) B GASTRIC FOR HP (GASTRIC HP) C Esophagus Biopsy (DISTAL ESOPHAGUS) D Esophagus Biopsy (PROXIMAL ESOPHAGUS) E Colon Biopsy (RANDOM RT COLON) F Colon Biopsy (RANDOM LT COLON) Procedures: , Gross/Micro L46, H PYLORI, IHC First AB Patient: MatthewAleta N [id number] (Continued) Specimen: [id number] Received: 09/03/23 (Continued) Pathological Diagnosis (Continued) lymphocytic exocytosis, otherwise also without any other diagnostic abnormality identified E, random right colon biopsy: -Colonic mucosa without any abnormal stromal chronic inflammation, or any other specific features of microscopic colitis identified F, random left colon biopsy: -Colonic mucosa showing changes similar to the part E specimen except 1 noted lymphoid aggregate, otherwise also without microscopic colitis, or any other specific or significant histopathological changes observed Clinical Information Nausea, abdominal pain, GERD, dysphagia. Rule out celiac, rule out H. pylori, rule out EOE and rule out microscopic colitis. Gross Description Received are 6 formalin filled containers each labeled with the patient's name, date of and specific specimen site. A. Further labeled small bowel BX are 2 reno mucosal tissue fragments each measuring 0.2 x 0.2 x 0.1 cm, entirely submitted in A1. B. Further labeled gastric BX are 2 reno mucosal tissue fragments measuring 0.2 x 0.2 x 0.1 cm and 0.1 x 0.1 x 0.1 cm, entirely submitted in B1. C. Further labeled distal esophagus BX are 2 reno mucosal tissue fragments each measuring 0.2 x 0.1 x 0.1 cm, entirely submitted (more content not included)... Normal [facility] Insurance Correspondence Off iceon 05-08-2023 Insurance Correspondence Office [id number]#[id number] FF Normal [facility] IntraOperative Documentson 0 04-29-2023 IntraOperative Documents [id number]#1.00TIF F [facility] Postoperative Documentson Postoperative Documents [id number]#1.00TIF F [facility] Main OR Intraoperative Recor don 04-25-2023 Main OR Intraoperative Record IntraOp Document Type FT Summary Primary Physician: Myron Rojas DO Finalized Date/Time: 04/25/23 09:04:33 Pt. Name: ALETA CASTRO/Sex: 2000 Female Med Rec #: [id number] Physician: Myron Rojas DO Financial #: [id number] Pt. Type: A Room/Bed: [place] [address] Admit/Disch: 04/23/23 06:25:15 - 04/23/23 14:50:00 Institution: Case Times FT Entry 1 Patient Times In Room 04/23/23 08:50:00 Out Room 04/23/23 10:59:00 Procedure Times Start 04/23/23 09:17:00 Stop 04/23/23 10:54:00 Anesthesia Times Start 04/23/23 08:50:00 Stop 04/23/23 10:59:00 Block Timeout w04/23/23 07:56:00 Anesthesia Last Modified By: Souleymane MCQUEEN, Lyle Haas 04/23/23 10:59:30 General Comments: Left adductor canal nerve block performed by using ultrasound guidance. RICHAR Clark to assist with the block. Patient's heartrate 89, [id number]% on room air. patient tolerated block well. Patient transported back to ASU bay 4 via cart. Patient placed on continous monitor, cart wheels locked and call light in reach. 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 Last Modified By: Souleymane RN, Lyle Comer RN, Lyle Comer RN, Lyle Haas 04/23/23 10:59:32 04/23/23 10:59:32 04/23/23 10:59:32 Entry 4 Entry 5 Entry 6 Case Attendee Regulo Rodgers Laura C Wilhelm CST, Benjamin Role Performed Staff - Other Scrub - Primary BUS AND TROLLEY INSPECTING DISPATCHER/SA Time In 04/23/23 08:50:00 04/23/23 08:50:00 04/23/23 08:50:00 Time Out 04/23/23 10:59:00 04/23/23 10:59:00 04/23/23 10:59:00 Procedure KNEE ARTHROSCOPY W/ ACL KNEE ARTHROSCOPY W/ ACL KNEE ARTHROSCOPY W/ ACL REPAIR(Left) REPAIR(Left) REPAIR(Left) Comments 2ND SCRUB AT THE SURGICAL FIELD Last Modified By: Souleymane MCQUEEN, Lyle Comer RN, Lyle Comer RN, Lyle Haas 04/23/23 10:59:32 04/23/23 10:59:32 04/23/23 10:59:32 General Comments: Fatou Ponce, arthrex rep., present in OR for surgical case Perioperative Protocols FT Pre-Care Text: Implements protective measures prior to operative or invasive procedure, confirms identity before the operative or invasive procedure, verifies operative procedure, surgical site, and laterality Entry 1 Procedure(s) KNEE ARTHROSCOPY W/ ACL Patient Identity Birthday, ID Band REPAIR(Left) Verified (select at Check, Patient least 2): Participation Consents / H and P Anesthesia Consent, Operative Site Present Verified HandP, Surgery/Procedure Marking Verified Consent Surgical Site Yes Laterality Verified Yes Verified Procedure Verified Yes Correct Patient Yes Position Verified Availability Equipment, Implant, Prep Dry Yes Verified (If Medication Applicable) PreOp Antibiotic Yes Time Out Diony Way, Given Participants Myron Rojas DO, Krupp RN, Ana Maria Bennett Kendall R, Blanca Urbie Wilhelm CST, Benjamin Time Out Complete 04/23/23 09:16:00 Outcomes Met? Yes Last Modified By: Lyle Comer RN 04/23/23 09:23:35 Post-Care Text: The patient is free from signs and symptoms of injury caused by extraneous objects Allergy Information FT Pre-Care Text: Verifies allergies Entry 1 Allergies Reviewed? Yes Allergies Reviewed Self/Patient With Outcomes Met? Yes Last Modified By: Lyle Comer RN 04/23/23 08:08:13 Post-Care Text: The patient received appropriate medication(s) safely administered during the perioperative period Surgical Procedures FT Entry 1 Procedure Description Procedure KNEE ARTHROSCOPY W/ ACL Modifiers Left REPAIR Surgeon Description LEFT KNEE ARTHROSCOPY,ANTERIOR LIGAMENT CRUCIATE RECONSTRUCTION, AUTO BONE TENDON BONE, INTERNAL BRACE Primary Procedure Yes Primary Surgeon Myron Rojas DO Start 04/23/23 09:17:00 Stop 04/23/23 10:54:00 Anesthesia Type General Surgical Service Orthopedics Wound Class 1 - Clean Last Modified By: Lyle Comer RN 04/23/23 11:02:21 General Case Data FT Pre-Care Text: Classifies surgical wound, implements aseptic technique, initiates traffic control Entry 1 Case Information OR OR 4 FT Case Level Level 4 Wound Class 1 - Clean Specialty Orthopedics ASA Class 2 Preop Diagnosis LEFT KNEE ACL TEAR Postop Same As Preop Yes Postop Diagnosis LEFT KNEE ACL TEAR Outcomes Met? Yes Last Modified By: Lyle Comer RN 04/23/23 09:18:54 Post-Care Text: The patient is free from signs and symptoms of infection Skin Assessment (Pre Procedure) FT Pre-Care Text: Implements (more content not included)... Normal [facility] Consent for Anesthesiaon Consent for Anesthesia [id number]#[id number] IFF Normal [facility] Discharge Instructionson Discharge Instructions [id number]#1.00T IFF Normal [facility] IntraOperative Documentson 0 04-24-2023 IntraOperative Documents [id number]#1.00T IFF Normal [facility] Operative Reporton Operative Report SURGERY DATE: 2023 [employer] PLANT MANAGER: Garry Camacho CST PREOPERATIVE DIAGNOSIS: Left knee anterior cruciate ligament tear POSTOPERATIVE DIAGNOSIS: Left knee anterior cruciate ligament tear OPERATION: Left knee diagnostic operative arthroscopy with autograft [id number] anterior cruciate ligament reconstruction with InternalBrace augmentation ANESTHESIA: General as well as regional block ANESTHESIOLOGIST: KARTHIKEYAN Peacock ESTIMATED BLOOD LOSS: 10 mL INTRAVENOUS FLUIDS: Please see the operative record SPECIMEN: None COMPLICATIONS: None IMPLANTS: Arthrex [id number] Tightrope system with the button for the same, an 8 x 20 mm anterior cruciate ligament Bio composite screw. On the tibial side on the InternalBrace a 4.75 mm SwiveLock x1. INDICATIONS: Summer is a 22-year-old white female who had a sustained injury to her left knee. She is found to have a suspected anterior cruciate ligament tear. She did have appropriate workup that does show this and the recommendation for the above procedure is made. The procedure is undertaken this day. INTRAOPERATIVE PATHOLOGY: Upon dissection of the left knee with the arthroscope, there is noted to be no significant patellofemoral or medial compartment pathology. Meniscus is fully intact. The intercondylar notch does show the anterior cruciate ligament avulsion apparently from the femur. There is some fibrillation of the ligament. This does appear to be subacute in nature and does correlate clinically. Latterly meniscus fully intact. No cartilage defect. The anterior cruciate ligament was reconstructed using [id number] from patellar tendon autograft with this InternalBrace augmentation. This is the Arthrex TightRope system as described. PROCEDURE: After informed consent is obtained, the risks, complications, reasonable expectations of the above procedure are discussed at length. The patient is taken to the Operative Suite and placed on the operating room table in supine position. At this point, she is given a general anesthetic. This was preceded by a regional block. She is then appropriately positioned with a well-padded tourniquet to the left thigh. The leg in the leg rodríguez. The foot of the table is lowered. The knee is sterilely prepped and draped in the usual surgical fashion, at which time, the site verification is undertaken with a time-out procedure. Landmarks are identified. The limb is exsanguinated with an Esmarch. The tourniquet inflated to 300 mm. Standard lateral portal is instilled, the camera is placed, the above pathology is noted. Next under direct visualization, standard medial portal was instilled. This was for instrumentation. The above pathology is noted. After identifying no meniscal pathology, the isolated anterior cruciate ligament injury, the focus is to graft harvest. A longitudinal incision is made anteriorly. The dissection is carried down onto the level of the patellar tendon. The peritenon is elevated. The focus is first to the patellar block. This is taken in the standard fashion with a template using small sagittal saw. A 10 mm offset scalpel was then utilized to take the central third of the patellar tendon down to the tibial tubercle where the same saw and instrumentation are used to harvest the tibial bone block. The graft is elevated, taken to the back table. The first assistance does then prepare the graft. The area is thoroughly irrigated. The excess bone debris from graft preparation is placed back in the patellar harvest site. The patella tendon is closed with 0 Vicryl, the peritenon and over the harvest sites with 2-0 Vicryl. The scope is then replaced back into the knee joint. The stump of the anterior cruciate ligament is then removed followed by the notchplasty accordingly. The graft is meanwhile again being prepared on the back table. The measuring device for anterior to posterior size of the femur is identified to identify the femoral tunnel. The guide for the femoral tunnel is then placed. A separate incision is made longitudinally and laterally through the IT band. The guide is placed down onto the lateral femoral cortex and in the appropriate position. At this point, the FlipCutter is utilized to enter the knee. This is set to 10 mm and back reamed accordingly after tamping the guide into place. At this point, excess bone debris is removed and the FiberLoop is applied. This is luggage tagged accordingly through the lateral portal. The focus is then to the tibial tunnel. The guide for the tibia is then identified. This is placed in the standard position. The guide pin is placed followed by over reaming with a 10 mm lamp shade maker. Excess bone debris is again removed. The FiberLoop is then brought out through the tibial tunnel. The graft is taken across the tibial tunnel into the knee. The button is taken out the lateral femur. The femoral bone block is advanced into the knee. This is then manipulated into the femoral tunnel. This did seat quite nicely. This is tensioned on the femo (more content not included)... Normal [facility] Comment on above: Result Comment: Elec tronically Signed By: Myron Rojas DO\.br\Date and Time Signed: 04/24/23 07:15 EST Preoperative Documentson Preoperative Documents [id number] IFF [facility] Consent for Procedure/Surger yon 04-23-2023 Consent for Procedure/Surgery [id number] F [facility] Consent for Treatmenton Consent for Treatment [id number] F [facility] Discharge Instructionson Discharge Instructions ALETA CASTRO :2000 Visit Date:04/23/2023 Inpatient Discharge Instructions Your Care Team Admitting Physician - Myron Rojas DO Referring Physician - Myron Rojas DO Reason for Your Visit LEFT KNEE ACL TEAR This Is Your Medications List acetaminophen-oxycodone (Percocet 5 mg-325 mg oral tablet) aspirin (Ecotrin 325 mg Tab-EC) Procedure History Laparoscopic left ovarian cystectomy, Ovarian cyst. What to do next New Follow Up Appointments after Discharge Follow Up with Myron Rojas When: 05/03/2023 11:00 AM EST Comments: Appointment has already been scheduled. Call for any problems. Where: [address] [place] [id number] [address] (1) Medications What How Much When Instructions Next Dose New acetaminophen-oxycodone (Percocet 5 mg-325 mg oral tablet) 1 Tablets By Mouth As Directed 1-2 po Q4-6h prn pain Dx: S83.512D Duration: [address] [facility]/pharmacy #[id number] New aspirin (Ecotrin 325 mg Tab-EC) 1 Tablets By Mouth Every day Pickup at [facility]/pharmacy #[address] [facility]/pharmacy #[id number]: [address] [place], [place] [phone] Allergies Banana (Throat tightness, Hives, Vomiting) Latex (Hives, Swelling) azithromycin (Hives) midodrine (Numbness) Education Materials [place], [place] [facility] DISCHARGE INSTRUCTIONS: ANTERIOR CRUCIATE LIGAMENT GRAFT MEDICATIONS: You will be given a prescription for pain medication. This should be taken as needed and try to take this with food. Pain medication can cause nausea, constipation, diarrhea, and restlessness and should only be used as needed. When you are able to tolerate Tylenol this should be used instead. Take 1 Ecotrin Aspirin (325 mg) Daily for the next 3 weeks. WOUND CARE: Change your dressing PostOp Day 5. As the nursing staff has instructed, you should continue daily dressing changes with Betadine liquid applied then a dry sterile dressing. This should be performed once or twice daily. You may begin to get your incision wet in the shower at five days if the incision is dry. Do not soak in the tub or otherwise submerge the incision until nadia are removed. Any increase in pain, temperature or redness should be promptly reported to the office. ACTIVITY: You will be given a protocol of the Cruciate Ligament Reconstruction Program and therapy and this should be followed. After starting physical therapy, they will advise you when it is safe to begin to bear weight with crutches. Generally this is performed after you obtain good leg strength, unless a meniscus repair has been performed as well. DIET: You may begin to progress your regular home diet as tolerated. You should continue to increase fluids for the first two to three days after surgery. ANESTHESIA PRECAUTIONS: You should not operate a vehicle (automobile, bicycle, motorcycle), machinery or power tools, make any important decisions or drink alcoholic beverages for 24 hours. You should not consume alcoholic beverages within 12 hours of using you pain medication. DRIVING: Do not drive. EXPECTATIONS OF SURGERY: Your pain will continue to decrease day by day. You may experience swelling from time to tome and this should be treated with elevation of the leg as well. Any increased pain should be promptly reported to my office. FOLLOW-UP APPOINTMENT: You will be given a care for a follow-up appointment in the office, usually within 10 to 14 days. You will continue physical therapy until the time of your office visit. Any further questions may be discussed with Physical Therapy, or please contact the office for further clarification or any concerns. ___ Myron Rojas, DO [facility] [address] [place] [address] Reviewed: 06-23 Revised: 03/29 Common Emergency Awareness Tips IS IT A STROKE? Act FAST and Check for these signs: FACE Does the face look uneven? ARM Does one arm drift down? SPEECH Does their speech sound strange? TIME Call at any sign of stroke Heart Attack Signs Chest discomfort: Most heart attacks involve discomfort in the center of the chest and lasts more than a few minutes, or goes away and comes back. It can feel like uncomfortable pressure, squeezing, fullness or pain. Discomfort in upper body: Symptoms can include pain or discomfort in one or both arms, back, neck, jaw or stomach. Shortness of breath: With or without discomfort. Other signs: Breaking out in a cold sweat, nausea, or lightheaded. Remember, MINUTES DO MATTER. If you experience any of these heart attack warning signs, call to get immediate medical attention! Patient Survey You may receive a survey in the mail asking you about your stay with us. We want to hear from you, please share your experie (more content not included)... Normal [facility] Comment on above: Result Comment: Elec tronically Signed By: Marcelo MCQUEEN, Shyla Acevedo\.br\Date and Time Signed: 04/23/23 10:58 EST H&P Updateon 04-23-2023 H&P Update [id number] F Normal [facility] Main OR PACU I [facility] Main OR PACU I Record PACU Phase I Document Type FT Summary Primary Physician: Myron Rojas DO Finalized Date/Time: 04/23/23 12:22:33 Pt. Name: ALETA CASTRO/Sex: 2000 Female Med Rec #: [id number] Physician: Myron Rojas DO Financial #: [id number] Pt. Type: A Room/Bed: 06/16 Admit/Disch: 04/23/23 06:25:15 - Institution: Case Times PACU I FT Pre-Care Text: Identifies barriers to communication and implements measures to provide psychological support Develops individualized plan of care, and ensures continuity of care Maintains patient's dignity and privacy, and maintains patient confidentiality Identifies and reports philosophical, cultural, and spiritual beliefs and values Identifies individual values and wishes concerning care Implements aseptic technique, and administers prescribed antibiotic therapy and immunizing agents as ordered Evaluates postoperative tissue perfusion Implements thermoregulation measures, and monitors body temperature Evaluates postoperative respiratory status Evaluates postoperative cardiac status Evaluates postoperative neurological status Assesses pain control, collaborated in initiating patient-controlled analgesia and implements alternative methods of pain control Verifies allergies, administers prescribed medications and solutions, evaluates response to medications Entry 1 In PACU I 04/23/23 11:00:00 Discharge from PACU 04/23/23 11:58:00 I Outcomes Met? Yes Last Modified By: Valencia Jimenez RN 04/23/23 12:22:18 Post-Care Text: The patient demonstrates knowledge of the expected response to the operative or invasive procedure The patient's care is consistent with the individualized perioperative plan of care The patient's right to privacy is maintained The patient's value system, lifestyle, ethnicity, and culture are considered, respected, and incorporated into the perioperative plan of care The patient participates in decisions affecting his or her perioperative plan of care The patient is free from signs and symptoms of infection The patient has wound/tissue perfusion consistent with or improved from baseline levels established preoperatively The patient is at or returning to normothermia at the conclusion of the immediate postoperative period The patient's respiratory function is consistent with or improved from baseline levels established preoperatively The patient's cardiovascular status is consistent with or improved from baseline levels established preoperatively The patient's cardiovascular status is consistent with or improved from baseline levels established preoperatively The patient demonstrates and/or reports adequate pain control throughout the perioperative period The patient received appropriate medication(s), safely administered during the perioperative period Acuity Level PACU I FT Entry 1 Start Time 04/23/23 11:00:00 Stop Time 04/23/23 11:58:00 Acuity Level Acuity Level I Last Modified By: Valencia Jimenez RN 04/23/23 12:22:29 Finalized By: Valencia Jimenez RN Document Signatures Signed By: Valencia Jimenez RN 04/23/23 12:22 [facility] Main OR Preoperative Recordo n 04-23-2023 Main OR Preoperative Record PreOp Document Type FT Summary Primary Physician: Myron Rojas DO Finalized Date/Time: 04/23/23 08:50:41 Pt. Name: ALETA CASTRO /Sex: 2000 Female Med Rec #: [id number] Physician: Myron Rojas DO Financial #: [id number] Pt. Type: A Room/Bed: [place] [address] Admit/Disch: 04/23/23 06:25:15 - Institution: Case Times PreOp FT Pre-Care Text: Verifies consent for planned procedure, identifies individual values and wishes concerning care, includes family members in perioperative teaching Entry 1 Patient Times. In Pre Surgery 04/23/23 06:35:00 Out Pre Surgery 04/23/23 08:48:00 Outcomes Met? Yes Last Modified By: Lyle Comer RN 04/23/23 08:50:40 Post-Care Text: The patient participates in decisions affecting his or her perioperative plan of care Finalized By: Lyle Comer RN Document Signatures Signed By: Lyle Comer RN 04/23/23 08:[address] [facility] Monitor [facility] 04-23-2023 Monitor Record [id number] 2019 [id number] FF [facility] Operative Reporton Operative Report Patient: AILEEN CASTRO Age: 22 years Sex: Female : 2000 Associated Diagnoses: None Author: Cyrus Modi DO Procedure Nerve Block Block Type: Adductor canal block. Laterality: Left. Informed consent for anesthesia management: Anesthesia options discussed including nerve block, Description of the procedure, risks, benefits, and alternatives was provided, The patient's questions were addressed. Time out: Confirmed correct patient, procedure and site. Time: Date/Time 04/23/2023 07:57:00. Indication: Block for postoperative pain management as requested by surgeon. Anesthesia Method: IV Sedation with monitored anesthesia care, The patient remained awake and able to interact in a meaningful way throughout the procedure. Preparation: The patient was placed in the following position Sitting, Continuous pulse oximetry applied, Using maximal sterile barrier technique per current [facility] guidelines including hand hygeine, Guidance (Ultrasound used to identify anatomical landmarks, Using sterile gel and probe covers, Permanent image retained), The site was prepped with ChloraPrep. Procedure: Anesthetic Agent 0.5% Ropivacaine (20mL) with 4mg Decadron, Catheter size 21 guage, Catheter length 100 mm, Needle was inserted without pain or parasthesia in the conscious patient, Number of attempts 1, Negative attempt at aspiration for blood, Medial and lateral spread of the anesthestic was observed, Periodic negative attempts at aspiration of blood were made as the local was injected, No pain or parathesia were elicited with injection of the anesthetic in the conscious patient, It was idetified that the correct anesthetic agent was administered to the correct site, Site post-procedure care Transparent dressing applied. Complications: None, The patient tolerated the procedure as expected. Normal [facility] Comment on above: Result Comment: Elec tronically Signed By: Cyrus Modi DO\.br\Date and Time Signed: 04/23/23 07:56 EST Patient Education - Texton 0 04-23-2023 Patient Education - Text [place], [place] [facility] DISCHARGE INSTRUCTIONS: ANTERIOR CRUCIATE LIGAMENT GRAFT MEDICATIONS: You will be given a prescription for pain medication. This should be taken as needed and try to take this with food. Pain medication can cause nausea, constipation, diarrhea, and restlessness and should only be used as needed. When you are able to tolerate Tylenol this should be used instead. Take 1 Ecotrin Aspirin (325 mg) Daily for the next 3 weeks. WOUND CARE: Change your dressing PostOp Day 5. As the nursing staff has instructed, you should continue daily dressing changes with Betadine liquid applied then a dry sterile dressing. This should be performed once or twice daily. You may begin to get your incision wet in the shower at five days if the incision is dry. Do not soak in the tub or otherwise submerge the incision until nadia are removed. Any increase in pain, temperature or redness should be promptly reported to the office. ACTIVITY: You will be given a protocol of the Cruciate Ligament Reconstruction Program and therapy and this should be followed. After starting physical therapy, they will advise you when it is safe to begin to bear weight with crutches. Generally this is performed after you obtain good leg strength, unless a meniscus repair has been performed as well. DIET: You may begin to progress your regular home diet as tolerated. You should continue to increase fluids for the first two to three days after surgery. ANESTHESIA PRECAUTIONS: You should not operate a vehicle (automobile, bicycle, motorcycle), machinery or power tools, make any important decisions or drink alcoholic beverages for 24 hours. You should not consume alcoholic beverages within 12 hours of using you pain medication. DRIVING: Do not drive. EXPECTATIONS OF SURGERY: Your pain will continue to decrease day by day. You may experience swelling from time to tome and this should be treated with elevation of the leg as well. Any increased pain should be promptly reported to my office. FOLLOW-UP APPOINTMENT: You will be given a care for a follow-up appointment in the office, usually within 10 to 14 days. You will continue physical therapy until the time of your office visit. Any further questions may be discussed with Physical Therapy, or please contact the office for further clarification or any concerns. ___ Myron Rojas DO [facility] [address] [place] [id number] Reviewed: 06-23 Revised: 03/[address] [facility] Progress Note-Physicianon Progress Note-Physician Patient: ALETA CASTRO Age: 22 years Sex: Female : 2000 Associated Diagnoses: None Author: [facility] ()Cyrus Postoperative Information Postoperative disposition: Postoperative disposition: To PACU. Anesthetic utilized: General. Health Status Allergies: Allergic Reactions (Selected) Severity Not Documented Azithromycin- Hives. Banana- Hives, throat tightness and vomiting. Latex- Hives and swelling. Midodrine- Numbness. Current medications: (Selected) Inpatient Medications Ordered HYDROmorphone 1 mg/mL injectable solution: 0.4 mg = 0.4 mL, Injection, IV Push, q4min PRN Pain for 5 dose(s), Stop date Limited # of times, Routine, Start date 04/23/23 10:56:00 EST, 04/23/23 10:56:00 EST Lactated Ringers IV Kelly 1000 mL 1,000 mL: 1,000 mL, IV, 100 mL/hr, Routine, Start date 04/23/23 10:56:00 EST, 10 hour(s), Total volume (mL): 1,000, 78 kg, 1.89, m2 Lactated Ringers IV Kelly 1000 mL 1,000 mL: 1,000 mL, IV, 125 mL/hr, Routine, Start date 04/23/23 10:57:00 EST, 8 hour(s), Total volume (mL): 1,000, 78 kg, 1.89, m2 Lactated Ringers IV Kelly 1000 mL 1,000 mL: 1,000 mL, IV, 150 mL/hr, Routine, Start date 04/23/23 6:45:00 EST, 6.7 hour(s), Total volume (mL): 1,000, 78 kg, 1.89, m2 Zofran 4 mg/2 mL Injection: 4 mg = 2 mL, Injection, IV Push, Once PRN Nausea/Vomiting, Routine, Start date 04/23/23 10:56:00 EST, 04/23/23 10:56:00 EST Zofran 4 mg/2 mL Injection: 4 mg = 2 mL, Injection, IV Push, q4hr PRN Nausea/Vomiting, Routine, Start date 04/23/23 10:57:00 EST, 04/23/23 10:57:00 EST acetaminophen 325 mg Tab: 650 mg = 2 tab(s), Tab, Oral, q4hr PRN Pain/Fever, Routine, Start date 04/23/23 10:57:00 EST, 04/23/23 10:57:00 EST acetaminophen-oxycodone 325 mg-5 mg Tab: 1 tab(s), Tab, Oral, q6hr PRN Pain 4-7 for 5 day(s), Stop date 04/28/23 10:56:00 EST, Routine, Start date 04/23/23 10:57:00 EST acetaminophen-oxycodone 325 mg-5 mg Tab: 2 tab(s), Tab, Oral, q6hr PRN Pain 4-7 for 5 day(s), Stop date 04/28/23 10:56:00 EST, Routine, Start date 04/23/23 10:57:00 EST promethazine additive 12.5 mg + Sodium Chloride 0.9% IV Kelly 50 mL (INT) 50 mL: Injection, IV Piggyback, Once, Stop date 04/23/23 11:00:00 EST, Routine, Start date 04/23/23 11:00:00 EST, 151.5 mL/hr, Infuse over 20 minute(s) Prescriptions Prescribed Ecotrin 325 mg Tab-EC: 325 mg = 1 tab(s), Oral, Daily, # 21 tab(s), Refills(s) 0, Pharmacy: [facility]/pharmacy #[id number], 165, cm, 04/04/23 6:11:00 EST, Height/Length Dosing, 78, kg, 04/04/23 6:11:00 EST, Weight Dosing Percocet 5 mg-325 mg oral tablet: 1 tab(s), Oral, As Directed, 40 tab(s), Refill(s) 0, 1-2 po Q4-6h prn pain Dx: S83.512D Duration: 7 days, [facility]/pharmacy #[id number], 165, cm, 04/04/23 6:11:00 EST, Height/Length Dosing, 78, kg, 04/04/23 6:11:00 EST, Weight Dosing, Home Medications (2) Active Ecotrin 325 mg Tab-EC 325 mg = 1 tab(s), Oral, Daily Percocet 5 mg-325 mg oral tablet 1 tab(s), Oral, As Directed Problem list: All Problems H/O: hypothyroidism / SNOMED CT 531687176 / Confirmed POTS (postural orthostatic tachycardia syndrome) / SNOMED CT 9530696502 / Confirmed Physical Examination Vital Signs 04/23/2023 10:55 EST Heart Rate Monitored 87 bpm bpm Respiratory Rate 16 br/min br/min SpO2 100 % % 04/23/2023 10:54 EST Systolic Blood Pressure 100 mmHg mmHg Diastolic Blood Pressure 61 mmHg mmHg 04/23/2023 10:51 EST Systolic Blood Pressure 99 mmHg mmHg Diastolic Blood Pressure 54 mmHg mmHg 04/23/2023 10:50 EST Heart Rate Monitored 93 bpm bpm Respiratory Rate 22 br/min br/min SpO2 100 % % 04/23/2023 10:48 EST Systolic Blood Pressure 108 mmHg mmHg Diastolic Blood Pressure 59 mmHg mmHg 04/23/2023 10:45 EST Heart Rate Monitored 89 bpm bpm Respiratory Rate 19 br/min br/min Systolic Blood Pressure 109 mmHg mmHg Diastolic Blood Pressure 50 mmHg mmHg SpO2 100 % % 04/23/2023 10:42 EST Systolic Blood Pressure 105 mmHg mmHg Diastolic Blood Pressure 53 mmHg mmHg 04/23/2023 10:40 EST Heart Rate Monitored 101 bpm bpm Respiratory Rate 19 br/min br/min SpO2 100 % % 04/23/2023 10:39 EST Systolic Blood Pressure 103 mmHg mmHg Diastolic Blood Pressure 52 mmHg mmHg 04/23/2023 10:36 EST Systolic Blood Pressure 108 mmHg mmHg Diastolic Blood Pressure 47 mmHg mmHg 04/23/2023 10:35 EST Heart Rate Monitored 102 bpm bpm Respiratory Rate 19 br/min br/min SpO2 100 % % 04/23/2023 10:33 EST Systolic Blood Pressure 105 mmHg mmHg Diastolic Blood Pressure 51 mmHg mmHg 04/23/2023 10:30 EST Heart Rate Monitored 100 bpm bpm Respiratory Rate 17 br/min br/min Systolic Blood Pressure 106 mmHg mmHg Diastolic Blood Pressure 51 mmHg mmHg SpO2 100 % % 04/23/2023 10:27 EST Systolic Blood Pressure 108 mmHg mmHg Diastolic Blood Pressure 50 mmHg mmHg 04/23/2023 10:25 EST Heart Rate Monitored 101 bpm bpm Respiratory Rate 16 br/min br/min SpO2 100 % % 04/23/2023 10:24 EST Systolic Blood Pressure 107 mmHg mmHg Diastolic Blood Pressure 49 mmHg mmHg 04/23/2023 10:21 EST Systolic Blood Pressure 1 (more content not included)... Normal [facility] Comment on above: Result Comment: Elec tronically Signed By: Cyrus Modi DO\.br\Date and Time Signed: 04/23/23 11:06 EST Progress Note-Physician Patient: ALETA CASTRO Age: 22 years Sex: Female : 2000 Associated Diagnoses: None Author: Myron Rojas DO Postoperative Information Procedure: L knee scope, ACL recon Preoperative Diagnosis: L ACL tear. Postoperative Diagnosis: same. Performed by: daniel. Bellman Captain: Roby Camacho. Specimens Removed: none. Prosthesis: Arthrex. . Estimated Blood Loss: 10 ml. Complications: None. Anesthesia type: General, block. Normal [facility] Comment on above: Result Comment: Elec tronically Signed By: Myron Rojas DO\.br\Date and Time Signed: 04/23/23 10:54 EST Progress Note-Physician Patient: ALETA CASTRO Age: 22 years Sex: Female : 2000 Associated Diagnoses: None Author: Cyrus Modi DO Preoperative Information Anesthesia history: Patient history: None. Family history+: None. Anesthesia results Informed consent: Signed by patient. Including risks, benefits, and alternatives related to the: Anesthetic plan, Postoperative pain management plan. Re-evaluation prior to induction: Cyrus Clement DO. Health Status Allergies: Allergic Reactions (Selected) Severity Not Documented Azithromycin- Hives. Banana- Hives, throat tightness and vomiting. Latex- Hives and swelling. Midodrine- Numbness., Allergies (4) Active Severity Reaction Latex Swelling, Hives midodrine Numbness azithromycin Hives Banana Vomiting, Hives, Throat tightness Current medications: (Selected) Inpatient Medications Ordered Lactated Ringers IV Kelly 1000 mL 1,000 mL: 1,000 mL, IV, 150 mL/hr, Routine, Start date 04/23/23 6:45:00 EST, 6.7 hour(s), Total volume (mL): 1,000, 78 kg, 1.89, m2 cefazolin additive + Sodium Chloride 0.9% intravenous solution 50 mL: 2 gram = 1 EA, Powder-Inj, IV Piggyback, PREOP, Routine, Start date 04/23/23 6:45:00 EST, 100 mL/hr, Infuse over 30 minute(s) Prescriptions Prescribed Ecotrin 325 mg Tab-EC: 325 mg = 1 tab(s), Oral, Daily, # 21 tab(s), Refills(s) 0, Pharmacy: [facility]/pharmacy #[id number], 165, cm, 04/04/23 6:11:00 EST, Height/Length Dosing, 78, kg, 04/04/23 6:11:00 EST, Weight Dosing Percocet 5 mg-325 mg oral tablet: 1 tab(s), Oral, As Directed, 40 tab(s), Refill(s) 0, 1-2 po Q4-6h prn pain Dx: S83.512D Duration: 7 days, [id number], 165, cm, 04/04/23 6:11:00 EST, Height/Length Dosing, 78, kg, 04/04/23 6:11:00 EST, Weight Dosing, Home Medications (2) Active Ecotrin 325 mg Tab-EC 325 mg = 1 tab(s), Oral, Daily Percocet 5 mg-325 mg oral tablet 1 tab(s), Oral, As Directed , Medications (2) Active Scheduled: (1) ceFAZolin + Sodium Chloride 0.9% Minibag 50 mL 2 gram 1 EA, IV Piggyback, PREOP Continuous: (1) Lactated Ringers 1,000 mL 1,000 mL, IV, 150 mL/hr PRN: (0) Problem list: All Problems H/O: hypothyroidism / SNOMED CT 984440236 / Confirmed POTS (postural orthostatic tachycardia syndrome) / SNOMED CT 9315646590 / Confirmed, Active Problems (2) H/O: hypothyroidism POTS (postural orthostatic tachycardia syndrome) Histories Past Medical History: No active or resolved past medical history items have been selected or recorded. Family History: No family history items have been selected or recorded. Procedure history: Laparoscopic left ovarian R/o ([id number]). Ovarian cyst removal ([id number]). Social History Social & Psychosocial Habits Alcohol 04/23/2023 Risk Assessment: Denies Alcohol Use Substance Abuse 04/23/2023 Risk Assessment: Denies Substance Abuse Tobacco 04/23/2023 Risk Assessment: Medium Risk 04/23/2023 Smokeless tobacco use: Current vaping or e-cigar Type: Vaping . Physical Examination Vital Signs 04/23/2023 7:00 EST Apical Heart Rate 74 bpm 04/23/2023 6:48 EST Heart Rate Monitored 79 bpm Systolic Blood Pressure 122 mmHg Diastolic Blood Pressure 74 mmHg Mean Arterial Pressure, Monitered 90 mmHg 04/23/2023 6:47 EST Heart Rate Monitored 86 bpm SpO2 98 % 04/23/2023 6:46 EST Respiratory Rate 16 br/min 04/23/2023 6:46 EST Temperature Oral 36.6 DegC 04/23/2023 6:46 EST Systolic Blood Pressure 118 mmHg Diastolic Blood Pressure 76 mmHg Mean Arterial Pressure, Monitered 90 mmHg Vital Signs (last 24 hrs) Last Charted Temp Oral 36.6 DegC (APR 23 06:46) Heart Rate Apical 74 bpm (APR 23 07:00) SBP 122 mmHg (APR 23 06:48) DBP 74 mmHg (APR 23 06:48) Measurements from flowsheet : Measurements 04/23/2023 7:12 EST Height/Length Measured 165 cm Weight Measured 78 kg Airway: Mallampati classification: II (soft palate, fauces, uvula visible). Distance: Mentohyoid, Interincisive, Thyromental, Mentosternal, Adequate. HENT: Normocephalic. Respiratory: Lungs are clear to auscultation. Cardiovascular: Regular rhythm. Gastrointestinal: Soft. Review / Management Results review: Lab results: 04/23/2023 6:58 EST U beta hCG Ql Negative . Plan [place] [employer]esthesiologists (ASA) physical status classification: Class II. Anesthetic Preoperative Plan: Anesthesia General. Regional Adductor Canal Block Left. Normal [facility] Comment on above: Result Comment: Elec tronically Signed By: [facility] ()Cyrus.br\Date and Time Signed: 04/23/23 07:41 EST U BetaHcg Qualon 04-23-2023 HCG.beta subunit (U) [Moles/Vol] Negative Normal [facility] Comment on above: Performed By: #### 2 [id number] ####[facility] [address] [place] [address] Consent for Procedure/Surger yon 04-16-2023 Consent for Procedure/Surgery [id number] F Normal [facility] CBC w/ Auto Diffon 4 Basophil Absolute 0.0 E9/L Normal 0.0-0.2 [facility] Comment on above: Performed By: #### 2 [id number] ####[facility] [address] [place] [address] Basophils/100 WBC (Bld) 0.4 % Normal 0.0-2.0 [facility] Comment on above: Performed By: #### 2 407573 ####[facility] [address] [place] [address] Eos Absolute 0.1 E9/L Normal 0.0-0.5 [facility] Comment on above: Performed By: #### 2 138517 ####[address] [address] Eosinophils/100 WBC (Bld) 1.0 % Normal 0.0-8.0 [facility] Comment on above: Performed By: #### 2 [id number] ####[address] [address] Erythrocyte distribution width (RBC) [Ratio] 12.6 % Normal 10.9-14.2 [facility] Comment on above: Performed By: #### 2 086945 ####[facility] [address] [place] [address] Hematocrit (Bld) [Volume fraction] 39.0 % Normal 34.0-46.0 [facility] Comment on above: Performed By: #### 2 251484 ####[facility] [address] [place] [address] Hemoglobin (Bld) [Mass/Vol] 13.1 g/dL Normal 12.0-16.0 [facility] Comment on above: Performed By: #### 2 999171 ####[facility] [address] [place] [address] Lymph Absolute 1.4 E9/L Normal 1.0-4.0 [facility] Comment on above: Performed By: #### 2 992803 ####[address] [address] Lymphocytes/100 WBC (Bld) 22.2 % Normal 14.0-50.0 [facility] Comment on above: Performed By: #### 2 693203 ####[address] [address] MCH (RBC) [Entitic mass] 30.6 pg Normal 27.0-34.0 [facility] Comment on above: Performed By: #### 2 661677 ####[address] [address] MCHC (RBC) [Mass/Vol] 33.7 g/dL Normal 31.4-36.0 [facility] Comment on above: Performed By: #### 2 077200 ####[address] [address] MCV (RBC) [Entitic vol] 91.0 fL Normal 80.0-100.0 [facility] Comment on above: Performed By: #### 2 305426 ####[address] [address] Harrison Absolute 0.4 E9/L Normal 0.2-1.0 [facility] Comment on above: Performed By: #### 2 040716 ####[address] [address] Monocytes/100 WBC (Bld) 5.6 % Normal 4.0-14.0 [facility] Comment on above: Performed By: #### 2 108166 ####[address] [address] Neutro Absolute 4.6 E9/L Normal 2.0-7.5 [facility] Comment on above: Performed By: #### 2 512257 ####[address] [address] Neutro Auto 70.8 % Normal 36.0-75.0 [facility] Comment on above: Performed By: #### 2 097315 ####[facility] [address] [place] [address] Platelet 312.0 E9/L Normal 150.0-500.0 [facility] Comment on above: Performed By: #### 2 963630 ####[facility] [address] [place] [address] Platelet mean volume (Bld) [Entitic vol] 7.7 fL Normal 6.4-10.8 [facility] Comment on above: Performed By: #### 2 674294 ####[facility] [address] [place] [address] RBC 4.3 E12/L Normal 4.3-5.9 [facility] Comment on above: Performed By: #### 2 757712 ####[facility] [address] [place] [address] WBC 6.5 E9/L Normal 4.0-11.0 [facility] Comment on above: Performed By: #### 2 151284 ####[facility] [address] [place] [address] Consent for Treatmenton 03-18 Consent for Treatment [id number]#[id number] F Normal [facility] HEMATOLOGYOrdered By: SYSTEM SYSTEM on 04-03-2023 Basophil Absolute 0.0 E9/L Normal 0.0 - 0.2 E9/L Remisol Heme Basophils/100 WBC (Bld) 0.4 % Normal 0.0 - 2.0 % Remisol Heme Eos Absolute 0.1 E9/L Normal 0.0 - 0.5 E9/L [facility] Eosinophils/100 WBC (Bld) 1.0 % Normal 0.0 - 8.0 % [facility] Erythrocyte distribution width (RBC) [Ratio] 12.6 % Normal 10.9 - 14.2 % [facility] Hematocrit (Bld) [Volume fraction] 39.0 % Normal 34.0 - 46.0 % [facility]e Hemoglobin (Bld) [Mass/Vol] 13.1 g/dL Normal 12.0 - 16.0 gm/dL [facility] Lymph Absolute 1.4 E9/L Normal 1.0 - 4.0 E9/L [facility] Lymphocytes/100 WBC (Bld) 22.2 % Normal 14.0 - 50.0 % Remisol Heme MCH (RBC) [Entitic mass] 30.6 pg Normal 27.0 - 34.0 pg Remisol Heme MCHC (RBC) [Mass/Vol] 33.7 g/dL Normal 31.4 - 36.0 gm/dL Rem[facility]e MCV (RBC) [Entitic vol] 91.0 fL Normal 80.0 - 100.0 fL Rem[facility] Heme Harrison Absolute 0.4 E9/L Normal 0.2 - 1.0 E9/L [facility] Monocytes/100 WBC (Bld) 5.6 % Normal 4.0 - 14.0 % [facility] Neutro Absolute 4.6 E9/L Normal 2.0 - 7.5 E9/L [facility] Neutro Auto 70.8 % Normal 36.0 - 75.0 % [facility] Platelet 312.0 E9/L Normal 150.0 - 500.0 E9/L [facility] Platelet mean volume (Bld) [Entitic vol] 7.7 fL Normal 6.4 - 10.8 fL [facility] RBC 4.3 E12/L Normal 4.3 - 5.9 E12/L [facility] WBC 6.5 E9/L Normal 4.0 - 11.0 E9/L Remisol Heme COVID/FLU/RSV RT-PCRon 04-01 SARS-CoV-2 (COVID-19) RNA QUEENIE+probe Ql (Unsp spec) Negative [employer] Other COVID/FLU/RSV RT-PCR Negative [facility] [employer] Other Quick Strepon 04-01-2023 S. pyogenes Org specific cx Ql (Throat) Negative [employer] Other Quick Strep [employer] Other US Gallbladderon 07-23-2022 US Gallbladder Clinical History: Ri ght upper quadrant pain. Diarrhea. Vomiting. Technique: Sonography of the right upper quadrant was performed. Images were obtained and stored in a permanent archive. Comparison: None. RESULT: Pancreas: Normal sonographic appearance of the visualized portions. Liver: Normal echotexture, echogenicity, and surface contour. No focal lesion. Biliary Ducts: No intrahepatic or extrahepatic biliary duct dilation. Common bile duct: 0.3 cm at the hilum. Gallbladder: Normal caliber without cholelithiasis, wall thickening, or pericholecystic fluid. Right kidney: Visualized portions unremarkable. Ascites: None. IMPRESSION: Unremarkable sonographic appearance of the right upper quadrant. Report reported and signed by Cornelius Hernandez on 07/23/2022 1043 Normal [facility] Specialist PAP ACOG PANEL 2: 21 to 28on 05-09-2022 . . Normal Comment on above: Performed By: #### 4 [id number] #### [facility] [address] [place] [address] Dr. Yovanny Villegas Age Gdln ACOG Testing - Normal Comment on above: Performed By: #### 4 [id number] #### [facility] [address] [address] [address] Yovanny Villegas DIAGNOSIS: Comment [facility] Comment on above: Result Comment: NEGA TIVE FOR INTRAEPITHELIAL LESION OR MALIGNANCY. Performed By: #### 4 [id number] #### [facility] [address] [place] [address] Dr. Yovanny Villegas Methodology: Comment Normal Comment on above: Result Comment: This liquid based ThinPrep(R) pap test was screened with the use of an image guided system. Performed By: #### 4 [id number] #### [facility] [address] [address] [address] Yovanny Villegas Note: Comment Normal Comment on above: Result Comment: The Pap smear is a screening test designed to aid in the detection of premalignant and malignant conditions of the uterine cervix. It is not a diagnostic procedure and should not be used as the sole means of detecting cervical cancer. Both false-positive and false-negative reports do occur. . Performed By: #### 4 [id number] #### [facility] [address] [place] [address] Dr. Yovanny Villegas Performed by: Comment Normal [facility] Comment on above: Result Comment: Yanira Navarrete, Academic Specialist (ASCP) Performed By: #### 4 [id number] #### [facility] [address] [place] [address] Dr. Yovanny Villegas Reflex Criteria: Comment Normal [facility] Comment on above: Result Comment: The HPV DNA reflex criteria were not met with this specimen result therefore, no HPV testing was performed. . Performed By: #### 4 [id number] #### [facility] [address] [address] [address] Yovanny Villegas Specimen adequacy: Comment Normal The [facility] Comment on above: Result Comment: Sati sfactory for evaluation. Endocervical and/or squamous metaplastic cells (endocervical component) are present. Performed By: #### 4 [id number] #### [facility] [address] [place] [address] Dr. Yovanny Villegas CHLAMYDIA/GONOCOCCUS QUEENIE ( AB/URINE/PAPon 07-28-2021 Chlamydia trachomatis, QUEENIE Negative Normal Negative Comment on above: Performed By: #### C T/NGNA #### [facility] [address] [place] [address] Dr. Yovanny Villegas Neisseria gonorrhoeae, QUEENIE Negative Normal Negative Comment on above: Performed By: #### C T/NGNA #### [facility] [address] [place] [address] Dr. Yovanny Villegas VAGINITIS/VAGINOSIS DNA PROB Anders 07-27-2021 Gabi species Negative Normal Negative [facility] Comment on above: Performed By: #### V AGINT #### [facility] [address] [place] [address] Dr. Yovanny Villegas Gardnerella vaginalis Negative Normal Negative Comment on above: Performed By: #### V AGINT #### [facility] [address] [place] [address] Dr. Yovanny Villegas Trichomonas vaginalis Negative Normal Negative Comment on above: Performed By: #### V AGINT #### [facility] [address] [address] [address] Yovanny Villegas XR KNEE LEFT (3 VIEWS)on XR KNEE LEFT (3 VIEWS) EXAMINATION: THREE XRAY VIEWS OF THE LEFT KNEE 05/24/2021 8:48 pm COMPARISON: None. HISTORY: ORDERING SYSTEM PROVIDED HISTORY: pain eval occult bony injury TECHNOLOGIST PROVIDED HISTORY: pain eval occult bony injury FINDINGS: No fracture, dislocation, or focal osseous lesion is noted. No significant soft tissue abnormality seen. IMPRESSION: No fracture or dislocation. Interpreted by: Deshaun Aguilar MD Signed by: Deshaun Aguilar MD 05/24/21 Final result Normal [facility] No fracture or dislocation. [facility] EXAMINATION: THREE XRAY VIEWS OF THE LEFT KNEE 05/24/2021 8:48 pm COMPARISON: None. HISTORY: ORDERING SYSTEM PROVIDED HISTORY: pain eval occult bony injury TECHNOLOGIST PROVIDED HISTORY: pain eval occult bony injury FINDINGS: No fracture, dislocation, or focal osseous lesion is noted. No significant soft tissue abnormality seen. [facility] Deshaun Aguilar MD - 05/24/2021 EXAMINATION: THREE XRAY VIEWS OF THE LEFT KNEE 05/24/2021 8:48 pm COMPARISON: None. HISTORY: ORDERING SYSTEM PROVIDED HISTORY: pain eval occult bony injury TECHNOLOGIST PROVIDED HISTORY: pain eval occult bony injury FINDINGS: No fracture, dislocation, or focal osseous lesion is noted. No significant soft tissue abnormality seen. IMPRESSION: No fracture or dislocation. [employer] Phone: Radiology Study observation (narrative) [employer] Phone: XR KNEE LEFT (3 VIEWS)Ordere d By: Deshaun Aguilar on 05-24-2021 [employer] Phone: COVID Quick Testingon 2021 Result Negative [employer] Other Quick Strepon 05-01-2021 S. pyogenes Org specific cx Ql (Throat) Positive [employer] Other Quick Strep [employer] Other COVID Quick Testingon 2021 Result Negative [employer] Other Quick Fluon 04-07-2021 FLUAV Ab CF (S) [Titer] Negative [employer] Other FLUBV Ab CF (S) [Titer] Negative [employer] Other XR SACRUM COCCYX (MIN 2 VIEW S)on 12-14-2020 XR SACRUM COCCYX (MIN 2 VIEWS) EXAMINATION: THREE XRAY VIEWS OF THE SACRUM/COCCYX 12/14/2020 3:10 am COMPARISON: None. HISTORY: ORDERING SYSTEM PROVIDED HISTORY: fall at work - hit [id number] TECHNOLOGIST PROVIDED HISTORY: fall at work - hit [id number] FINDINGS: The sacroiliac joints are normally aligned. The visualized portions the pelvis are. There is no fracture of the sacrum or coccyx evident. IMPRESSION: No acute osseous abnormality of the sacrum or coccyx evident. Interpreted by: Loc Oswald MD Signed by: Loc Oswald MD 12/14/20 Final result Normal [facility] XR SACRUM COCCYX (MIN 2 VIEW S)Ordered By: David Dominguez on 12-14-2020 No acute osseous abnormality of the sacrum or coccyx evident. [employer] Phone: EXAMINATION: THREE X RAY VIEWS OF THE SACRUM/COCCYX 12/14/2020 3:10 am COMPARISON: None. HISTORY: ORDERING SYSTEM PROVIDED HISTORY: fall at work - hit [id number] TECHNOLOGIST PROVIDED HISTORY: fall at work - hit [id number] FINDINGS: The sacroiliac joints are normally aligned. The visualized portions the pelvis are. There is no fracture of the sacrum or coccyx evident. [employer] Phone: [employer], Mhpn Incoming Radiant Results From [employer] - 12/14/2020 3:24 AM EDT EXAMINATION: THREE XRAY VIEWS OF THE SACRUM/COCCYX 12/14/2020 3:10 am COMPARISON: None. HISTORY: ORDERING SYSTEM PROVIDED HISTORY: fall at work - hit [id number] TECHNOLOGIST PROVIDED HISTORY: fall at work - hit [id number] FINDINGS: The sacroiliac joints are normally aligned. The visualized portions the pelvis are. There is no fracture of the sacrum or coccyx evident. IMPRESSION: No acute osseous abnormality of the sacrum or coccyx evident. [employer] Phone: [facility] [employer] Phone: CT HEAD WO CONTRASTon 2020 CT HEAD WO CONTRAST EXAMINATION: CT OF THE HEAD WITHOUT CONTRAST 09/19/2020 4:30 pm TECHNIQUE: CT of the head was performed without the administration of intravenous contrast. Dose modulation, iterative reconstruction, and/or weight based adjustment of the mA/kV was utilized to reduce the radiation dose to as low as reasonably achievable. COMPARISON: None. HISTORY: ORDERING SYSTEM PROVIDED HISTORY: head injury while at work FINDINGS: BRAIN/VENTRICLES: No acute intracranial hemorrhage, mass effect or midline shift. No abnormal extra-axial fluid collection. The olivares-white differentiation is maintained without evidence of an acute infarct. No evidence of hydrocephalus. ORBITS: The visualized portion of the orbits demonstrate no acute abnormality. SINUSES: The visualized paranasal sinuses and mastoid air cells appear clear. SOFT TISSUES/SKULL: No acute abnormality of the visualized skull or soft tissues. IMPRESSION: Unremarkable noncontrast CT examination of the brain. Interpreted by: Maira Cruz MD Signed by: Maira Cruz MD 09/19/20 Final result Normal [facility] CT Head WO ContrastOrdered B y: Luis Carlos Fragoso on 09-19-[address] examination of the brain. [employer] Phone: EXAMINATION: CT OF T HE HEAD WITHOUT CONTRAST 09/19/2020 4:30 pm TECHNIQUE: CT of the head was performed without the administration of intravenous contrast. Dose modulation, iterative reconstruction, and/or weight based adjustment of the mA/kV was utilized to reduce the radiation dose to as low as reasonably achievable. COMPARISON: None. HISTORY: ORDERING SYSTEM PROVIDED HISTORY: head injury while at work FINDINGS: BRAIN/VENTRICLES: No acute intracranial hemorrhage, mass effect or midline shift. No abnormal extra-axial fluid collection. The olivares-white differentiation is maintained without evidence of an acute infarct. No evidence of hydrocephalus. ORBITS: The visualized portion of the orbits demonstrate no acute abnormality. SINUSES: The visualized paranasal sinuses and mastoid air cells appear clear. SOFT TISSUES/SKULL: No acute abnormality of the visualized skull or soft tissues. [employer] Phone: [employer], pn Incoming Radiant Results From [employer] - 09/19/2020 4:42 PM EDT EXAMINATION: CT OF THE HEAD WITHOUT CONTRAST 09/19/2020 4:30 pm TECHNIQUE: CT of the head was performed without the administration of intravenous contrast. Dose modulation, iterative reconstruction, and/or weight based adjustment of the mA/kV was utilized to reduce the radiation dose to as low as reasonably achievable. COMPARISON: None. HISTORY: ORDERING SYSTEM PROVIDED HISTORY: head injury while at work FINDINGS: BRAIN/VENTRICLES: No acute intracranial hemorrhage, mass effect or midline shift. No abnormal extra-axial fluid collection. The olivares-white differentiation is maintained without evidence of an acute infarct. No evidence of hydrocephalus. ORBITS: The visualized portion of the orbits demonstrate no acute abnormality. SINUSES: The visualized paranasal sinuses and mastoid air cells appear clear. SOFT TISSUES/SKULL: No acute abnormality of the visualized skull or soft tissues. IMPRESSION: Unremarkable noncontrast CT examination of the brain. [employer] Phone: [employer] Phone: Coding Summaryon 10-27-2019 Coding Summary CODING DATE: 020 [facility] STATUS: Home PAYOR: [facility] ADMIT DX: REASON FOR VISIT DX: J02.9 Acute pharyngitis, unspecified R05 Cough R50.9 Fever, unspecified FINAL DX: PRINCIPAL: J02.9 Acute pharyngitis, unspecified SECONDARY: R05 Cough R50.9 Fever, unspecified PYMT PROC APC STAT DESCRIPTION DOCTOR NAME DATE NOTE: The code number assigned matches the documented diagnosis and / or procedure in the patient's chart. However, the narrative phrase printed from the coding software may appear abbreviated, or result in slightly different terminology. Coded By: Ashley Pablo Date Saved: 10/27/2019 03:10 pm [facility] 2019 Novel Coronavirus (CoVI D-19), QUEENIE LCon 10-26-2019 SARS-CoV-2, QUEENIE (COVID-19) LC Not Detected Not Detected [facility] Comment on above: Order Comment: 73701 1 Result Comment: This test was developed and its performance characteristics determined by [employer]. This test has not been FDA cleared or approved. This test has been authorized by FDA under an Emergency Use Authorization (EUA). This test is only authorized for the duration of time the declaration that circumstances exist justifying the authorization of the emergency use of in vitro diagnostic tests for detection of SARS-CoV-2 virus and/or diagnosis of COVID-19 infection under section 564(b)(1) of the Act, 21 U.S.C. 360bbb-3(b)(1), unless the authorization is terminated or revoked sooner. When diagnostic testing is negative, the possibility of a false negative result should be considered in the context of a patient's recent exposures and the presence of clinical signs and symptoms consistent with COVID-19. An individual without symptoms of COVID-19 and who is not shedding SARS-CoV-2 virus would expect to have a negative (not detected) result in this assay. Performed At: [facility] [address] [facility] [facility] [place] [place] [id number] Ruba Washburn MD Ph:[phone] Performed By: #### 6 [id number] #### [facility] (DEFAULT) [address] [place] [address] Consent Formson 10-26-2019 Consent Forms [id number] TIFF Normal [facility] CNCOon 07-15-2017 CNCO Letter TextToll Free : [phone] [facility] - [address] [place], [place] [address]Ynwjx: [phone]: [facility] [place], [place] [address]Knpvu: [phone]: [facility] [address] [place], [place] [address]Ytudp: [phone]: Steve Pablo M.D., Ronaldo Marquez M.D.David Becerril M.D.Papito Sood D.O..Myriam Chaudhari M.D.Deandre Montoya M.D. Matthew Huff M.D.Date: July 15, 2017Re: Aleta Elliott WHOM IT MAY CONCERN:She was seen in our office today.Sincerely,Katelin Cardona PSR(signed electronically to expedite mailing) Normal [facility] CNOVSPon 07-15-2017 CNOVSP Visit (SP) Office ([place]) SYEDA GARAY [facility] ([id number]) 99 FDate Time Provider Department07/15/17 3:15 PM DAVID BECERRIL HEMGASPER During your visit today, we recorded the following information about you: Temperature Pulse Respiration Blood pressure 98.3 degrees 82/minute 18/minute 109/58 Weight Height 59.3 kg 1.676 Evangelista Becerril MD 07/17/2017 1:14 PM SignedCHIEF COMPLAINT: platelet storage pool defectHISTORY OF PRESENT ILLNESS: Aleta Garay is a 17 year old female who has ahistory of POTS as well as hypermobility/joint laxity, presents after wholeblood for electron microscopy obtained due to her clinical history notedslightly larger dense granules (see below). Report notes delta storage pooldeficiency can be reported in up to 80% of patients with POTS. No functionaltesting has been completed.Patient denies issues with bleeding episodes- though admittedly, has not hadmuch by way of surgeries. Feels her menses seem heavy but would note she goesthrough 7 pads for a whole cycle. Denies issues with bleeding after trauma.Notes symptomatic blood pressure lability associated with having POTS. Patientreturns today to review labs. 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- POTS (postural orthostatic tachycardia syndrome)No past surgical history on file.Review of Social History includes:Social History Marital status: Single Spouse name: Years of education: Number of children:Social History Main Topics Drug use: UnknownNo family history on file.Current Outpatient Prescriptions:fludrocort isone (FLORINEF) 0.1 mg tablet Take 0.1 mg by mouth once daily.levothyroxine (SYNTHROID) 125 mcg tablet TAKE 1 TABLET ON AN EMPTY STOMACH INTHE MORNING ONCE A DAY ORALLYBYSTOLIC 5 mg tablet TAKE 1 1/2 TABLETS BY MOUTH DAILY AT BEDTIMEmidodrine (PROAMITINE) 5 mg tablet Take 5 mg by mouth three times daily.No current facility-administered medications for this visit.REVIEW OF SYSTEMS:Constitutional: Baseline state of health, no fevers or chillsHead and neck: No neck stiffness or goiter.Respiratory: No cough or hemoptysis.Cardiovascula r: POTS symptoms as notedGI: No nausea, vomiting, diarrhea or GI bleed.Skin: No rash or lesions. Denies easy bruising or petechiaeNeurologic: No focal weakness or sensory changes.Psychiatric: Normal affect.Hematopoietic: No easy bruising or enlarged lymphadenopathy.: No frequency or dysuria.PHYSICAL EXAMINATION:Resp 18 Wt 59.3 kg (130 lb 11.2 oz)General appearance: well appearing, alert, in no acute distress, well-hydrated,well nourishedNeuro: Gait normal.Collected: 05/15/17 1043Resulting lab: [facility] MAIN LABORATORYValue: (NOTE)Comment: Performing Pathologist: Jo-Ann Sesay M.D., Ph.D.The closure times (platelet adhesion and aggregation) with both theCOL/EPI cartridge and the COL/ADP cartridge are normal. An intrinsicplatelet dysfunction, anti-platelet drug effect and von Willebranddisease are unlikely. Some patients with platelet storage pooldisorders may have normal closure times with this test. A normalplatelet function screening test result does not excludeabnormalities of the vasculature, coagulation system or fibrinolyticsystem as a cause of a bleeding disorder. ?ASSESSMENT/PLAN: Aleta Garay is a 16 year old female with abnormal test asnoted above. No history of bleeding issues. Platelet function screening wasnormal.1. 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 no changes .Referring Provider: DAVID BECERRIL [[id number]]Allergies As of Date: 07/15/2017(No Known Allergies)Date Reviewed: 07/15/2017Reviewed by: Giovana Norton - Fully AssessedReason for Visit: storage pool disease [Other] Cmt: follow upPrimary Visit Diagnosis:Abnormal laboratory test [R89.9]Disposition: Return if symptoms worsen or fail to improve.Follow-up and Disposition History RecordedPrescriptions as of 07/15/2017 Sig: FLUDROCORTISONE 0.1 MG TABLET Take 0.1 mg by mouth once christiano* LEVOTHYROXINE 125 MCG TABLET TAKE 1 TABLET ON AN EMPTY STO* BYSTOLIC 5 MG TABLET TAKE 1 1/2 TABLETS BY MOUTH D* MIDODRINE 5 MG TABLET Take 5 mg by mouth three time*Problem List As Of Date: 07/15/2017(None)Visit Notes:>> Giovana Norton Mon Jul 15, 2017 3:10 PM Status: SignedPatient went over medication list. no changes .Encounter Status:Closed by DAVID BECERRIL MD on 07/17/17 Normal [facility] PROGRESSon 07-15-2017 PROGRESS HNO ID: [id number]: David LylessService: (none)Author Type: PhysicianType: Progress NotesFiled: 07/17/2017 1:14 PMNote Text:CHIEF COMPLAINT: platelet storage pool defectHISTORY OF PRESENT ILLNESS: Aleta Garay is a 17 year old female who hasa history of POTS as well as hypermobility/joint laxity, presents afterwhole blood for electron microscopy obtained due to her clinical historynoted slightly larger dense granules (see below). Report notes deltastorage pool deficiency can be reported in up to 80% of patients withPOTS. No functional testing has been completed.Patient denies issues with bleeding episodes- though admittedly, has nothad much by way of surgeries. Feels her menses seem heavy but would noteshe goes through 7 pads for a whole cycle. Denies issues with bleedingafter trauma.Notes symptomatic blood pressure lability associated with having POTS.Patient returns today to review labs. 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- POTS (postural orthostatic tachycardia syndrome)No past surgical history on file.Review of Social History includes:Social History Marital status: Single Spouse name: Years of education: Number of children:Social History Main Topics Drug use: UnknownNo family history on file.Current Outpatient Prescriptions:fludrocort isone (FLORINEF) 0.1 mg tablet Take 0.1 mg by mouth once daily.levothyroxine (SYNTHROID) 125 mcg tablet TAKE 1 TABLET ON AN EMPTY STOMACHIN THE MORNING ONCE A DAY ORALLYBYSTOLIC 5 mg tablet TAKE 1 1/2 TABLETS BY MOUTH DAILY AT BEDTIMEmidodrine (PROAMITINE) 5 mg tablet Take 5 mg by mouth three times daily.No current facility-administered medications for this visit.REVIEW OF SYSTEMS:Constitutional: Baseline state of health, no fevers or chillsHead and neck: No neck stiffness or goiter.Respiratory: No cough or hemoptysis.Cardiovascula r: POTS symptoms as notedGI: No nausea, vomiting, diarrhea or GI bleed.Skin: No rash or lesions. Denies easy bruising or petechiaeNeurologic: No focal weakness or sensory changes.Psychiatric: Normal affect.Hematopoietic: No easy bruising or enlarged lymphadenopathy.: No frequency or dysuria.PHYSICAL EXAMINATION:Resp 18 Wt 59.3 kg (130 lb 11.2 oz)General appearance: well appearing, alert, in no acute distress,well-hydrated, well nourishedNeuro: Gait normal.Collected: 05/15/17 1043Resulting lab: [facility] MAIN LABORATORYValue: (NOTE)Comment: Performing Pathologist: Jo-Ann Sesay M.D., Ph.D.The closure times (platelet adhesion and aggregation) with both theCOL/EPI cartridge and the COL/ADP cartridge are normal. An intrinsicplatelet dysfunction, anti-platelet drug effect and von Willebranddisease are unlikely. Some patients with platelet storage pooldisorders may have normal closure times with this test. A normalplatelet function screening test result does not excludeabnormalities of the vasculature, coagulation system or fibrinolyticsystem as a cause of a bleeding disorder. ?ASSESSMENT/PLAN: Aleta Garay is a 16 year old female with abnormal testas noted above. No history of bleeding issues. 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 Performed By: #### P LTSCP ####[facility] [place], [place] [phone] COL/EPI Cartridge 105 CT (sec) Normal <199 [facility] Comment on above: Result Comment: Resu lts are reported as Closure Time (CT) in seconds. Performed By: #### P LTSCP ####[facility] [address] [place], [place] [phone] Plt Func Scr Interp (NOTE) Normal [facility] Comment on above: Result Comment: Perf orming Pathologist: Jo-Ann Sesay M.D., Ph.D.The closure times (platelet adhesion and aggregation) with both theCOL/EPI cartridge and the COL/ADP cartridge are normal. An intrinsicplatelet dysfunction, anti-platelet drug effect and von Willebranddisease are unlikely. Some patients with platelet storage pooldisorders may have normal closure times with this test. A normalplatelet function screening test result does not excludeabnormalities of the vasculature, coagulation system or fibrinolyticsystem as a cause of a bleeding disorder. Performed By: #### P LTSCP ####[facility], [place] [phone] Remote CBCDIF (for [facility] use o nly)on 05-15-2017 Abs Baso <0.03 Normal <0.11 [facility] Comment on above: Performed By: #### R CBCDF ####[place] [address], [place] [phone] Abs Harrison 0.53 k/uL Normal <0.87 [facility] Comment on above: Performed By: #### R CBCDF ####[place] [address] [place] [phone] Abs Neut 2.59 k/uL Normal 1.45-7.50 [facility] Comment on above: Performed By: #### R CBCDF ####[place] [address], [place] [phone] Basophils/100 WBC Auto (Bld) 0.4 % Normal [facility] Comment on above: Performed By: #### R CBCDF ####[place] [address] [place] [phone] DTYPE Auto Diff Normal [facility] Comment on above: Performed By: #### R CBCDF ####[place] [address] [place] [phone] Eosinophils 0.07 10*3/uL Normal <0.46 [facility] Comment on above: Performed By: #### R CBCDF ####[place] [address] [place] [phone] Eosinophils/100 leukocytes 1.5 % Normal [facility] [place] [facility] Comment on above: Performed By: #### R CBCDF ####[place] [address] [place] [phone] Erythrocyte distribution width Auto Ratio (RBC) 12.2 % Normal 11.5-15.0 [facility] Comment on above: Performed By: #### R CBCDF ####[place] [address], [place] [phone] Erythrocytes (RBC) 4.15 10*6/uL Normal 3.90-5.20 [facility] Comment on above: Performed By: #### R CBCDF ####[place] [address], [place] [phone] Erythrocytes (RBC) 0.0 /100 WBC Normal 0 [facility] Comment on above: Performed By: #### R CBCDF ####[place] [address], [place] [phone] Erythrocytes (RBC) 10*6/uL Normal <0.01 [facility] Comment on above: Performed By: #### R CBCDF ####[place] [address], [place] [phone] Hematocrit (HCT) 39.4 % Normal 36.0-46.0 [facility] Comment on above: Performed By: #### R CBCDF ####[place] [address], [place] [phone] Hemoglobin mass conc (Bld) 12.8 g/dL Normal 11.5-15.5 [facility] Comment on above: Performed By: #### R CBCDF ####[place] [address], [place] [phone] Lymphocytes 1.37 10*3/uL Normal 1.00-4.00 [facility] Comment on above: Performed By: #### R CBCDF ####[place] [address], [place] [phone] Lymphocytes/100 leukocytes 29.9 % Normal [facility] [place] [facility] Comment on above: Performed By: #### R CBCDF ####[place] [address], [place] [phone] MCH 30.8 pG Normal 26.0-34.0 [facility] Comment on above: Performed By: #### R CBCDF ####[facility] [address], [place] [phone] MCHC mass conc (RBC) 32.5 g/dL Normal 30.5-36.0 [facility] Comment on above: Performed By: #### R CBCDF ####[facility], [place] [phone] MCV 94.9 fL Normal 80.0-100.0 [facility] Comment on above: Performed By: #### R CBCDF ####[place] [address], [place] [phone] Monocytes/100 leukocytes 11.6 % Normal [facility] [place] [facility] Comment on above: Performed By: #### R CBCDF ####[place] [address], [place] [phone] Neutrophils/100 WBC Auto (Bld) 56.6 % Normal [facility] Comment on above: Performed By: #### R CBCDF ####[facility], [place] [phone] Platelet mean volume (PMV) 10.2 fL Normal 9.0-12.7 [facility] Comment on above: Performed By: #### R CBCDF ####[facility], [place] [phone] Platelets 229 10*3/uL Normal 150-400 [facility] Comment on above: Performed By: #### R CBCDF ####[facility], [place] [phone] WBC (Leukocytes) 4.58 10*3/uL Normal 3.70-11.00 [facility] Comment on above: Performed By: #### R CBCDF ####[facility] [address], [place] [phone] CNCOon 04-29-2017 CNCO Letter TextToll Free : [phone] [facility] - [address] [place], [place] [address]Hecjq: [phone]: [facility] - [address] [place], [place] [address]Vyasq: [phone]: [facility] [address] [place], [place] [address]Fiiva: [phone]: Steve Pablo M.D., Ronaldo Marquez M.D.David Becerril M.D.Papito Sood D.O..Carin Hoover M.D. FACROSaju A. Rajan, M.D.Date: April 29, 2017Re: Aleta Elliott WHOM IT MAY CONCERN:She was seen in our office today.Sincerely,Karly Pizarro Psr(signed electronically to expedite mailing) Normal [facility] CNOVSPon 04-29-2017 CNOVS Visit (SP) Office (HEMAC[place]) SYEDA GARAY JANESSA ([id number]) 99 FDate Time Provider Department04/29/17 2:30 PM DAVID BECERRIL During your visit today, we recorded the following information about you: Temperature Pulse Respiration Blood pressure 97.2 degrees 76/minute 18/minute 107/56 Weight Last Period 58.3 kg 04/15/17Aljarred Becerril MD 04/29/2017 3:56 PM SignedCHIEF COMPLAINT: platelet storage pool defectHISTORY OF PRESENT ILLNESS: Aleta Garay is a 16 year old female who has ahistory of POTS as well as hypermobility/joint laxity, presents after wholeblood for electron microscopy obtained due to her clinical history notedslightly larger dense granules (see below). Report notes delta storage pooldeficiency can be reported in up to 80% of patients with POTS. No functionaltesting has been completed.Patient denies issues with bleeding episodes- though admittedly, has not hadmuch by way of surgeries. Feels her menses seem heavy but would note she goesthrough 7 pads for a whole cycle. Denies issues with bleeding after trauma.Notes symptomatic blood pressure lability associated with having POTS. Notesduring her menses, she does take NSAIDS but has not had any exposure in over 4weeks. 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- POTS (postural orthostatic tachycardia syndrome)No past surgical history on file.Review of Social History includes:Social History Marital status: Single Spouse name: Years of education: Number of children:Social History Main TopicsNo family history on file.Current Outpatient Prescriptions:fludrocort isone (FLORINEF) 0.1 mg tablet Take 0.1 mg by mouth once daily.levothyroxine (SYNTHROID) 125 mcg tablet TAKE 1 TABLET ON AN EMPTY STOMACH INTHE MORNING ONCE A DAY ORALLYBYSTOLIC 5 mg tablet TAKE 1 1/2 TABLETS BY MOUTH DAILY AT BEDTIMEmidodrine (PROAMITINE) 5 mg tablet Take 5 mg by mouth three times daily.No current facility-administered medications for this visit.REVIEW OF SYSTEMS:Constitutional: Baseline state of health, no fevers or chillsHead and neck: No neck stiffness or goiter.Respiratory: No cough or hemoptysis.Cardiovascula r: POTS symptoms as notedGI: No nausea, vomiting, diarrhea or GI bleed.Skin: No rash or lesions.Neurologic: No focal weakness or sensory changes.Psychiatric: Normal affect.Endocrinology: No diabetes or thyroid disease.Hematopoietic: No easy bruising or enlarged lymphadenopathy.: No frequency or dysuria.PHYSICAL EXAMINATION:BP 107/56 Pulse 76 Temp 36.2 ?C (97.2 ?F) (Oral) Resp 18 Wt 58.3 kg(128 lb 8 oz) LMP 04/15/2017General appearance: well appearing, alert, in no acute distress, well-hydrated,well nourishedSkin: skin color, texture, turgor normal, no suspicious rashes or lesionsHead: normalOropharynx: negativeBack: no tenderness to palpationLungs: clear to auscultation, no wheezing or rhonchiHeart: Negative. RRR without murmur, gallop, or rubs. No ectopy.Abdomen: Normal abdominal exam, Abdomen soft, non-tender. Bowel sounds normal.Extremities: Extremities normal. No deformities, edema, or skin discoloration.Musculoske letal: No joint swelling, deformity, or tenderness.Peripheral pulses: NormalNeuro: Gait normal.ASSESSMENT/PLAN: Aleta Garay is a 16 year old female with abnormal test asnoted above. No history of bleeding issues. Reviewed findings with the patientand her mother at length. 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]Order(s):PLATELET FUNCTION SCREEN [SQPLTSCP] Order #: [id number] FUTURE CBC + DIFF (FOR REMOTE [facility] USE) [SQRCBCDF] Order #: [id number] FUTUREDisposition: Return in about 6 weeks (around 2017).Follow-up and Disposition History RecordedPrescriptions as of 04/29/2017 Sig: FLUDROCORTISONE 0.1 MG TABLET Take 0.1 mg by mouth once christiano* LEVOTHYROXINE 125 MCG TABLET TAKE 1 TABLET ON AN EMPTY STO* BYSTOLIC 5 MG TABLET TAKE 1 1/2 TABLETS BY MOUTH D* MIDODRINE 5 MG TABLET Take 5 mg by mouth three time*Problem List As Of Date: 04/29/2017(None)Encounte r Status:Closed by DAVID BECERRIL MD on 04/29/17 Normal [facility] PROGRESSon 04-29-2017 PROGRESS HNO ID: [id number]: David Talaveraice: (none)Author Type: PhysicianType: Progress NotesFiled: 04/29/2017 3:56 PMNote Text:CHIEF COMPLAINT: platelet storage pool defectHISTORY OF PRESENT ILLNESS: Aleta Garay is a 16 year old female who hasa history of POTS as well as hypermobility/joint laxity, presents afterwhole blood for electron microscopy obtained due to her clinical historynoted slightly larger dense granules (see below). Report notes deltastorage pool deficiency can be reported in up to 80% of patients withPOTS. No functional testing has been completed.Patient denies issues with bleeding episodes- though admittedly, has nothad much by way of surgeries. Feels her menses seem heavy but would noteshe goes through 7 pads for a whole cycle. Denies issues with bleedingafter trauma.Notes symptomatic blood pressure lability associated with having POTS.Notes during her menses, she does take NSAIDS but has not had any exposurein over 4 weeks. 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- POTS (postural orthostatic tachycardia syndrome)No past surgical history on file.Review of Social History includes:Social History Marital status: Single Spouse name: Years of education: Number of children:Social History Main TopicsNo family history on file.Current Outpatient Prescriptions:fludrocort isone (FLORINEF) 0.1 mg tablet Take 0.1 mg by mouth once daily.levothyroxine (SYNTHROID) 125 mcg tablet TAKE 1 TABLET ON AN EMPTY STOMACHIN THE MORNING ONCE A DAY ORALLYBYSTOLIC 5 mg tablet TAKE 1 1/2 TABLETS BY MOUTH DAILY AT BEDTIMEmidodrine (PROAMITINE) 5 mg tablet Take 5 mg by mouth three times daily.No current facility-administered medications for this visit.REVIEW OF SYSTEMS:Constitutional: Baseline state of health, no fevers or chillsHead and neck: No neck stiffness or goiter.Respiratory: No cough or hemoptysis.Cardiovascula r: POTS symptoms as notedGI: No nausea, vomiting, diarrhea or GI bleed.Skin: No rash or lesions.Neurologic: No focal weakness or sensory changes.Psychiatric: Normal affect.Endocrinology: No diabetes or thyroid disease.Hematopoietic: No easy bruising or enlarged lymphadenopathy.: No frequency or dysuria.PHYSICAL EXAMINATION:BP 107/56 Pulse 76 Temp 36.2 ?C (97.2 ?F) (Oral) Resp 18 Wt 58.3kg (128 lb 8 oz) LMP 04/15/2017General appearance: well appearing, alert, in no acute distress,well-hydrated, well nourishedSkin: skin color, texture, turgor normal, no suspicious rashes or lesionsHead: normalOropharynx: negativeBack: no tenderness to palpationLungs: clear to auscultation, no wheezing or rhonchiHeart: Negative. RRR without murmur, gallop, or rubs. No ectopy.Abdomen: Normal abdominal exam, Abdomen soft, non-tender. Bowel soundsnormal.Extremities : Extremities normal. No deformities, edema, or skindiscoloration.Muscul oskeletal: No joint swelling, deformity, or tenderness.Peripheral pulses: NormalNeuro: Gait normal.ASSESSMENT/PLAN: Aleta Garay is a 16 year old female with abnormal testas noted above. No history of bleeding issues. Reviewed findings with thepatient and her mother at length. 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, choice of management likely to be influenced by history ofPOTSAlfred P MD Jone Normal [facility] Vital Signs Date Time Vital Sign Value Performing Clinician Facility 10-28-2024 14:39-0400 Body mass index (BMI) [Ratio] 28.49 kg/m2 Pretty ARELLANO Work Phone: [facility] 10-28-2024 14:39-0400 Body weight 75.3 kg Pretty ARELLANO Work Phone: [facility] 10-28-2024 14:39-0400 Diastolic blood pressure 80 mm[Hg] Pretty ARELLANO Work Phone: [facility] 10-28-2024 14:39-0400 Systolic blood pressure 130 mm[Hg] Pretty ARELLANO Work Phone: [facility] 09-30-2024 15:34-0400 Body mass index (BMI) [Ratio] 28.29 kg/m2 Doc William DO Work Phone: [facility] 09-30-2024 15:34-0400 Body weight 74.75 kg Doc William DO Work Phone: [facility] 09-30-2024 15:34-0400 Diastolic blood pressure 72 mm[Hg] Doc William DO Work Phone: [facility] 09-30-2024 15:34-0400 Systolic blood pressure 110 mm[Hg] Doc William DO Work Phone: [facility] 08-05-2024 14:27-0400 Body mass index (BMI) [Ratio] 30.21 kg/m2 Doc William DO Work Phone: [facility] 08-05-2024 14:27-0400 Body weight 79.83 kg Doc William DO Work Phone: [facility] 08-05-2024 14:27-0400 Diastolic blood pressure 76 mm[Hg] Doc William DO Work Phone: [facility] 08-05-2024 14:27-0400 Systolic blood pressure 110 mm[Hg] Doc William DO Work Phone: [facility] 02-26-2024 15:41-0500 Body height 162.6 cm Myron Pocos DO Work Phone: [facility] 02-26-2024 15:41-0500 Body mass index (BMI) [Ratio] 30.21 kg/m2 Myron Pocos DO Work Phone: [facility] 02-26-2024 15:41-0500 Body weight 79.83 kg Myron Pocos DO Work Phone: [facility] 02-19-2024 15:26-0500 Body height 162.6 cm Rosaile Payne MD Work Phone: [facility] 02-19-2024 15:26-0500 Body mass index (BMI) [Ratio] 30.21 kg/m2 Rosalie Payne MD Work Phone: [facility] 02-19-2024 15:26-0500 Body weight 79.83 kg Rosalie Payne MD Work Phone: [facility] 02-19-2024 15:26-0500 Heart rate 88 /min Rosalie Payne MD Work Phone: [facility] 02-19-2024 15:26-0500 SaO2% (BldA) [Mass fraction] 98 % Rosalie Payne MD Work Phone: [facility] 12-09-2023 08:00-0400 Body height 162.6 cm Kelvin Oneal DO Work Phone: [facility] 12-09-2023 08:00-0400 Body mass index (BMI) [Ratio] 30.9 kg/m2 Kelvin Oneal DO Work Phone: [facility] 12-09-2023 08:00-0400 Body weight 81.65 kg Kelvin Oneal DO Work Phone: [facility] 09-02-2023 14:25-0400 Diastolic blood pressure 73 mm[Hg] MD Rosalie Payne Work Phone: [facility] 09-02-2023 14:25-0400 Heart rate 80 /min MD Rosalie Payne Work Phone: [facility] 09-02-2023 14:25-0400 Respiratory rate 18 /min MD Rosalie Payne Work Phone: [facility] 09-02-2023 14:25-0400 SaO2% (BldA) [Mass fraction] 100 % MD Rosalie Payne Work Phone: [facility] 09-02-2023 14:25-0400 Systolic blood pressure 122 mm[Hg] MD Rosalie Payne Work Phone: [facility] 09-02-2023 11:31-0400 Body height 165.1 cm MD Rosalie Payne Work Phone: [facility] 09-02-2023 11:31-0400 Body temperature 98.4 [degF] MD Rosalie Payne Work Phone: [facility] 09-02-2023 11:31-0400 Body weight 77.11 kg MD Rosalie Payne Work Phone: [facility] 07-25-2023 14:21-0400 Body height 165.1 cm [facility] 07-25-2023 14:21-0400 Body mass index (BMI) [Ratio] 28.3 kg/m2 [facility] 07-25-2023 14:21-0400 Body weight 77.11 kg [facility] 07-25-2023 14:21-0400 Diastolic blood pressure 72 mm[Hg] [facility] 07-25-2023 14:21-0400 Heart rate 81 /min [facility] 07-25-2023 14:21-0400 Systolic blood pressure 111 mm[Hg] [facility] 04-03-2023 14:55-0500 Diastolic blood pressure 87 mm[Hg] Myron Pocos [facility] 04-03-2023 14:55-0500 Heart rate 105 /min Myron Pocos [facility] 04-03-2023 14:55-0500 Mean blood pressure 103 mm[Hg] Myron Pocos [facility] 04-03-2023 14:55-0500 Systolic blood pressure 136 mm[Hg] Myron Pocos [facility] 04-03-2023 14:53-0500 Heart rate 98 /min Myron Pocos [facility] 04-03-2023 14:53-0500 SaO2% (BldA) [Mass fraction] 99 % Myron Pocos [facility] 04-03-2023 14:53-0500 Diastolic blood pressure 96 mm[Hg] Myron Pocos [facility] 04-03-2023 14:53-0500 Mean blood pressure 112 mm[Hg] Myron Caroos [facility] 04-03-2023 14:53-0500 Systolic blood pressure 145 mm[Hg] Myron Caroos [facility] 04-03-2023 14:52-0500 Respiratory rate 16 /min Myron Caroos [facility] 04-01-2023 10:45-0500 Body height 165.1 cm Destinee Kristine Other [employer] Other 04-01-2023 10:45-0500 Body mass index (BMI) [Ratio] 28.29 kg/m2 Destinee Kristine Other [employer] Other 04-01-2023 10:45-0500 Body temperature 98.1 [degF] Destinee Kristine Other [employer] Other 04-01-2023 10:45-0500 Body weight 77.11 kg Destinee Kristine Other [employer] Other 04-01-2023 10:45-0500 Respiratory rate 18 /min Destinee Kristine Other [employer] Other 04-01-2023 10:45-0500 SaO2% (BldA) [Mass fraction] 99 % Destinee Kristine Other [employer] Other 08-21-2021 11:25-0400 Body height 165.1 cm Carlie Thomas Other [employer] Other 08-21-2021 11:25-0400 Body mass index (BMI) [Ratio] 27.12 kg/m2 Carlie Thomas Other [employer] Other 08-21-2021 11:25-0400 Body temperature 98.6 [degF] Carlie Thomas Other [employer] Other 08-21-2021 11:25-0400 Body weight 73.94 kg Carlie Thomas Other [employer] Other 08-21-2021 11:25-0400 Respiratory rate 18 /min Carlie Thomas Other [employer] Other 08-21-2021 11:25-0400 SaO2% (BldA) [Mass fraction] 97 % Carlie Thomas Other [employer] Other 05-24-2021 20:36-0500 Body temperature 97.7 [degF] Artis Gradwellttan DO Work Phone: [employer] 05-24-2021 20:36-0500 Diastolic blood pressure 81 mm[Hg] Artis Gradwellttan DO Work Phone: [employer] 05-24-2021 20:36-0500 Heart rate 101 /min Artis Gradwellttan DO Work Phone: [employer] 05-24-2021 20:36-0500 Respiratory rate 16 /min Artis Gradwellttan DO Work Phone: [employer] 05-24-2021 20:36-0500 SaO2% (BldA) [Mass fraction] 97 % Artis Gradwellttan DO Work Phone: [employer] 05-24-2021 20:36-0500 Systolic blood pressure 131 mm[Hg] Artis Grattan DO Work Phone: [employer] 05-11-2021 13:10-0500 Body height 165.1 cm Adriana Evangelista Other [employer] Other 05-11-2021 13:10-0500 Body mass index (BMI) [Ratio] 27.12 kg/m2 Adriana Evangelista Other [employer] Other 05-11-2021 13:10-0500 Body temperature 97.8 [degF] Adriana Evangelista Other [employer] Other 05-11-2021 13:10-0500 Body weight 73.94 kg Adriana Evangelista Other [employer] Other 05-11-2021 13:10-0500 Diastolic blood pressure 90 mm[Hg] Adriana Evangelista Other [employer] Other 05-11-2021 13:10-0500 Respiratory rate 18 /min Adriana Evangelista Other [employer] Other 05-11-2021 13:10-0500 SaO2% (BldA) [Mass fraction] 99 % Adriana Evangelista Other [employer] Other 05-11-2021 13:10-0500 Systolic blood pressure 129 mm[Hg] Adriana Evangelista Other [employer] Other 05-01-2021 11:40-0500 Body height 165.1 cm Carlie Thomas Other [employer] Other 05-01-2021 11:40-0500 Body mass index (BMI) [Ratio] 26.62 kg/m2 Carlie Thomas Other [employer] Other 05-01-2021 11:40-0500 Body temperature 98.6 [degF] Carlie Thomas Other [employer] Other 05-01-2021 11:40-0500 Body weight 72.58 kg Carlie Thomas Other [employer] Other 05-01-2021 11:40-0500 Respiratory rate 18 /min Carlie Thomas Other [employer] Other 05-01-2021 11:40-0500 SaO2% (BldA) [Mass fraction] 99 % Carlie Thomas Other [employer] Other 04-07-2021 12:00-0500 Body height 165.1 cm Sandeep Ramirez Other [employer] Other 04-07-2021 12:00-0500 Body mass index (BMI) [Ratio] 26.62 kg/m2 Sandeep Ramirez Other [employer] Other 04-07-2021 12:00-0500 Body temperature 97.6 [degF] Sandeep Ramirez Other [employer] Other 04-07-2021 12:00-0500 Body weight 72.58 kg Sandeep Ramirez Other [employer] Other 04-07-2021 12:00-0500 SaO2% (BldA) [Mass fraction] 98 % Sandeep Ramirez Other [employer] Other 12-13-2020 23:25-0400 Diastolic blood pressure 89 mm[Hg] David Dominguez MD Work Phone: [facility] Work Phone: 12-13-2020 23:25-0400 Systolic blood pressure 141 mm[Hg] David Dominguez MD Work Phone: [employer] Work Phone: 12-13-2020 23:23-0400 Body height 165.1 cm David Dominguez MD Work Phone: [employer] Work Phone: 12-13-2020 23:23-0400 Body mass index (BMI) [Ratio] 26.63 kg/m2 David Dominguez MD Work Phone: [employer] Work Phone: 12-13-2020 23:23-0400 Body temperature 98.29 [degF] David Dominguez MD Work Phone: [employer] Work Phone: 12-13-2020 23:23-0400 Body weight 72.58 kg David Dominguez MD Work Phone: [employer] Work Phone: 12-13-2020 23:23-0400 Heart rate 79 /min David Dominguez MD Work Phone: [employer] Work Phone: 12-13-2020 23:23-0400 Respiratory rate 14 /min David Dominguez MD Work Phone: [employer] Work Phone: 12-13-2020 23:23-0400 SaO2% (BldA) [Mass fraction] 99 % David Dominguez MD Work Phone: [employer] Work Phone: 09-19-2020 15:56-0400 Body temperature 98.6 [degF] [employer] Work Phone: 09-19-2020 15:56-0400 Diastolic blood pressure 90 mm[Hg] [employer] Work Phone: 09-19-2020 15:56-0400 Heart rate 103 /min [employer] Work Phone: 09-19-2020 15:56-0400 Respiratory rate 16 /min [employer] Phone: 09-19-2020 15:56-0400 SaO2% (BldA) [Mass fraction] 100 % [employer] Phone: 09-19-2020 15:56-0400 Systolic blood pressure 139 mm[Hg] [employer] Phone: Encounters Encounter Date Encounter Type Care Provider Facility Start: 10-28-2024 End: 10-28-2024 Patient encounter procedure Pretty ARELLANO Work Phone: [facility] Start: 10-28-2024 End: 10-28-2024 flow sheet Pretty ARELLANO Work Phone: [facility] Comment on above: Second trimester pre gnancy ([facility]); 23 weeks gestation of ([facility]); Diabetes mellitus screening; STD exposure; Well woman exam with routine gynecological exam; Heart palpitations Start: 10-28-2024 End: 10-28-2024 Bamboo flowsheet Pretty ARELLANO Work Phone: [facility] Start: 10-28-2024 End: 10-28-2024 Bamboo flowsheet Pretty ARELLANO Work Phone: [facility] Start: 10-06-2024 End: 10-06-2024 Clinisync Result Encounter Doc William DO Work Phone: [facility] Unsolicited Start: 10-06-2024 End: 10-06-2024 Clinisync Result Encounter Doc William DO Work Phone: [facility] Unsolicited Start: 09-30-2024 End: 09-30-2024 flow sheet Doc William DO Work Phone: [facility] Comment on above: 19 weeks gestation o f ([facility]); Second trimester ([facility]) Start: 09-30-2024 End: 09-30-2024 ambulatory DOC WILLIAM Not Available Start: 09-28-2024 End: 09-28-2024 Clinisync Result Encounter Generic External Data Provider [facility] Unsolicited Start: 09-28-2024 End: 09-28-2024 Clinisync Result Encounter Generic External Data Provider [facility] Unsolicited Start: 09-02-2024 End: 09-02-2024 flow sheet Pretty ARELLANO Work Phone: [facility] Comment on above: Second trimester pre gnancy ([facility]); 15 weeks gestation of ([facility]); Screening, , for anatomic survey ([facility]) Start: 09-02-2024 End: 09-02-2024 ambulatory PRETTY MCKEON Not Available Start: 09-02-2024 End: 09-02-2024 Bamboo flowsheet Pretty ARELLANO Work Phone: [facility] Start: 09-02-2024 End: 09-02-2024 Bamboo flowsheet Pretty ARELLANO Work Phone: [facility] Start: 08-31-2024 End: 08-31-2024 Clinisync Result Encounter Doc William DO Work Phone: [facility] Unsolicited Start: 08-31-2024 End: 08-31-2024 Clinisync Result Encounter Doc William DO Work Phone: [facility] Unsolicited Start: 08-05-2024 End: 08-05-2024 Bamboo flowsheet Doc William DO Work Phone: [facility] Start: 08-05-2024 End: 08-05-2024 Bamboo flowsheet Doc William DO Work Phone: [facility] Start: 08-05-2024 End: 08-05-2024 flow sheet Doc William DO Work Phone: [facility] Comment on above: First trimester preg shakila; 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 ; 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CMS/HCC) Start: 08-05-2024 End: 08-05-2024 ambulatory DOC WILLIAM Not Available Start: 07-18-2024 End: 07-20-2024 Clinisync Result Encounter Generic External Data Provider [facility] Unsolicited Start: 07-18-2024 End: 07-20-2024 Clinisync Result Encounter Generic External Data Provider [facility] Department Unsolicited Start: 07-16-2024 End: 07-16-2024 Office outpatient visit 5 minutes [facility] William Nurse [facility] Comment on above: GA: 8w5d Start: 07-16-2024 End: 07-16-2024 ambulatory DOC WILLIAM Not Available Start: 02-26-2024 End: 02-26-2024 Patient encounter procedure Myron Rojas DO Work Phone: [facility] Comment on above: S/P reconstruction o f ACL of left knee using bone-patellar tendon-bone autograft (Primary Dx) Start: 02-26-2024 End: 02-26-2024 ambulatory MYRON Washburn DANIEL Not Available Start: 02-19-2024 End: 02-19-2024 Office outpatient visit 25 minutes Rosalie Payne MD Work Phone: [facility] Comment on above: Subclinical hypothyr oidism (CMS/HCC) (Primary Dx); 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CMS/HCC); Cigarette smoker; Non morbid obesity due to excess calories; Postural orthostatic tachycardia syndrome (POTS); Abnormal bleeding in menstrual cycle Start: 02-19-2024 End: 02-19-2024 ambulatory ROSALIE PAYNE Not Available Start: 02-19-2024 End: 02-19-2024 Bamboo flowsheet Rosalie Payne MD Work Phone: [facility] Start: 02-19-2024 End: 02-19-2024 Bamboo flowsheet Rosalie Payne MD Work Phone: [facility] Start: 12-27-2023 End: 12-27-2023 ambulatory Pepe J Lilo PT Work Phone: [facility] Comment on above: Acute pain of left k nee (Primary Dx); Status post arthroscopic reconstruction of anterior cruciate ligament of left knee using quadriceps tendon autograft Start: 12-27-2023 End: 12-27-2023 Bamboo flowsheet Pepe J Lilo PT Work Phone: [facility] Start: 12-27-2023 End: 12-27-2023 Bamboo flowsheet Pepe J Lilo PT Work Phone: [facility] Start: 12-24-2023 End: 12-24-2023 ambulatory Nereyda Vieira [employer] Work Phone: [facility] Comment on above: Acute pain of left k nee (Primary Dx); Status post arthroscopic reconstruction of anterior cruciate ligament of left knee using quadriceps tendon autograft Start: 12-24-2023 End: 12-24-2023 Bamboo flowsheet Nereyda Vieira [employer] Work Phone: [facility] Start: 12-24-2023 End: 12-24-2023 Bamboo flowsheet Nereyda Vieira [employer] Work Phone: [facility] Start: 12-17-2023 End: 12-17-2023 ambulatory Pepe Normaniggs PT Work Phone: [facility] Comment on above: Acute pain of left k nee (Primary Dx); Status post arthroscopic reconstruction of anterior cruciate ligament of left knee using quadriceps tendon autograft Start: 12-17-2023 End: 12-17-2023 Bamboo flowsheet Pepe J Lilo PT Work Phone: [facility] Start: 12-17-2023 End: 12-17-2023 Bamboo flowsheet Pepe J Lilo PT Work Phone: [facility] Start: 12-09-2023 End: 12-09-2023 Bamboo flowsheet Kelvin Oneal DO Work Phone: [facility] Start: 12-09-2023 End: 12-09-2023 Bamboo flowsheet Kelvin Oneal DO Work Phone: [facility] Start: 12-09-2023 End: 12-09-2023 Patient encounter procedure Kelvin Oneal DO Work Phone: [facility] Comment on above: Left knee injury, in itial encounter (Primary Dx) Start: 12-09-2023 End: 12-09-2023 ambulatory KELVIN ONEAL Not Available Start: 12-03-2023 End: 12-03-2023 ambulatory Nereydaannita Vieira [employer] Work Phone: [facility] Comment on above: Acute pain of left k nee (Primary Dx); Status post arthroscopic reconstruction of anterior cruciate ligament of left knee using quadriceps tendon autograft Start: 12-03-2023 End: 12-03-2023 Bamboo flowsheet Nereyda Vieira [employer] Work Phone: [facility] Start: 12-03-2023 End: 12-03-2023 Bamboo flowsheet Nereydaannita Vieira [employer] Work Phone: [facility] Start: 11-19-2023 End: 11-19-2023 ambulatory Jennifer Dozier [employer] [facility] Comment on above: Acute pain of left k nee (Primary Dx); Status post arthroscopic reconstruction of anterior cruciate ligament of left knee using quadriceps tendon autograft Start: 11-19-2023 End: 11-19-2023 Bamboo flowsheet Jennifer Haletersall [employer] [facility] Start: 11-19-2023 End: 11-19-2023 Bamboo flowsheet Jennifer Martinoall [employer] [facility] Start: 11-12-2023 End: 11-12-2023 ambulatory Nereyda Vieira [employer] Work Phone: [facility] Comment on above: Acute pain of left k nee (Primary Dx); Status post arthroscopic reconstruction of anterior cruciate ligament of left knee using quadriceps tendon autograft Start: 11-12-2023 End: 11-12-2023 Bamboo flowsheet Nereydaannita Vieira [employer] Work Phone: [facility] Start: 11-12-2023 End: 11-12-2023 Bamboo flowsheet Nereyda Vieira [employer] Work Phone: [facility] Start: 10-29-2023 End: 10-29-2023 ambulatory JENNIFER DOZIER Not Available Start: 10-23-2023 End: 10-23-2023 ambulatory JC POCOS Not Available Start: 10-18-2023 End: 10-18-2023 ambulatory JC POCOS Not Available Start: 10-15-2023 End: 10-15-2023 ambulatory NEREYDA VIEIRA Not Available Start: 10-11-2023 End: 10-14-2023 ambulatory PEPE KIRBY Not Available Start: 10-08-2023 End: 10-08-2023 ambulatory JENNIFER DOZIER Not Available Start: 09-02-2023 Non-patient / Non-visit MD Hector Payne Work Phone: [facility] Work Phone: Start: 09-02-2023 End: 09-02-2023 Admission to same day surgery center MD Rosalie Payne Work Phone: [facility] Work Phone: Start: 09-02-2023 End: 09-02-2023 ambulatory MD Rosalie Payne Work Phone: [facility] Work Phone: Start: 07-25-2023 End: 07-25-2023 ambulatory [facility] Work Phone: Start: 07-25-2023 End: 07-25-2023 Patient encounter procedure [facility] Work Phone: Start: 04-23-2023 End: 04-23-2023 ambulatory Jc Pocos Facility[facility] Start: 04-22-2023 Chart abstracting Pepe rowe PT Work Phone: [facility] Start: 04-03-2023 End: 04-04-2023 ambulatory Jc Vaniaanaly Facility:[facility] Start: 04-03-2023 End: 04-03-2023 Patient encounter procedure Myron Washburn Daniel [facility] Start: 04-01-2023 End: 04-01-2023 ambulatory Destinee Kristine Other [employer] Other Start: 04-01-2023 Office outpatient vi sit 15 minutes Destineegianfranco Carmona [facility] Start: 05-01-2022 End: 05-01-[address] DOC THOMAS . Facility: Start: 08-21-2021 End: 08-21-2021 ambulatory Carlie Thomas Other [employer] Other Start: 08-21-2021 Office outpatient vi sit 15 minutes Carlie Thomas [facility] Start: 07-26-2021 End: 07-26-[address] DOC THOMAS . Facility: Start: 05-24-2021 Emergency department patient visit ARTIS Pari [facility] Start: 05-24-2021 End: 05-24-2021 Emergency department patient visit Artis Yoder DO Work Phone: [facility] ED Comment on above: Contusion of left kn ee, initial encounter (Primary Dx) Start: 05-11-2021 End: 05-11-2021 ambulatory Adriana Evangelista Other [employer] Other Start: 05-11-2021 Office outpatient vi sit 15 minutes Adriana Evangelista [facility] Start: 05-01-2021 (URG) Urgent Care Visit Carlie quintanilla [facility] Start: 05-01-2021 End: 05-01-2021 ambulatory Carlie Thomas Other [employer] Other Start: 04-07-2021 End: 04-07-2021 ambulatory Sandeep Ramirez Other [facility] [employer] Other Start: 04-07-2021 Office outpatient vi sit 15 minutes Sandeep Ramirez [facility] Start: 12-14-2020 End: 12-14-2020 Emergency department patient visit DAVID DOMINGUEZ [facility] Start: 12-14-2020 End: 12-14-2020 Emergency department patient visit David Dominguez MD Work Phone: [facility] ED Comment on above: Tailbone injury, ini tial encounter (Primary Dx) Start: 09-19-2020 End: 09-19-2020 Emergency department patient visit [facility] ED Comment on above: Closed head injury, initial encounter (Primary Dx) Start: 07-15-2017 End: 07-18-2017 Ambulatory DAVID [facility] Start: 05-15-2017 End: 05-15-2017 Ambulatory DAVID [facility] Start: 04-30-2017 End: 04-30-2017 Ambulatory [facility] Start: 04-29-2017 End: 04-30-2017 Ambulatory [facility] Start: 03-13-2017 End: 03-14-2017 Ambulatory BLANCA PABLO Facility:[facility] Procedures Date Procedure Procedure Detail Performing Clinician Start: 10-28-2024 Urnls dip stick/tablet rgnt non-auto w/o micrscp Jessica Steen NP Work Phone: Start: 10-06-2024 US OB CERVICAL LENGTH Doc William DO Work Phone: Start: 09-30-2024 Urnls dip stick/tablet rgnt non-auto w/o micrscp Doc William DO Work Phone: Start: 09-28-2024 ALL THYROID STIM HORMONE Doc William DO Work Phone: Start: 09-02-2024 Urnls dip stick/tablet rgnt non-auto w/o micrscp Pretty ARELLANO Work Phone: Start: 08-31-2024 ALL THYROID STIM HORMONE Generic Externa l Data Provider Start: 08-05-2024 Urnls dip stick/tablet rgnt non-auto w/o micrscp Doc William DO Work Phone: Start: 07-18-2024 BOX TEST Doc William DO Work Phone: Start: 07-18-2024 [facility] DRUG SCREEN RAPID (URINE) Generic Ex ternal Data Provider Start: 07-16-2024 Urnls dip stick/tablet rgnt non-auto w/o micrscp Doc William DO Work Phone: Start: 02-20-2024 Complete blood count with white cell differential, automated Rosalie Payne MD Work Phone: Start: 02-20-2024 Comprehensive metabolic panel Rosalie huertas MD Work Phone: Start: 02-20-2024 Thyroglobulin antibody Rosalie Payne MD Work Phone: Start: 09-02-2023 Esophagogastroduodenoscopy MD Rosalie fenton Work Phone: Start: 05-10-2023 History of reconstruction of anterior cruciate ligament tear Status post arthroscopic reconstruction of anterior cruciate ligament of left knee using quadriceps tendon autograft Nereyda Vieira PTA Work Phone: Start: 05-24-2021 Radiologic examination knee 3 views Artis Yoder DO Work Phone: Start: 12-14-2020 Radex sacrum & coccyx minimum 2 views David Dominguez MD Work Phone: Start: 09-19-2020 Ct head/brain w/o contrast material Luis Carlos Fragoso PA-C Work Phone: Cyst of ovary (disorder) Shayan id Pocos History of operative procedure on knee S/P reconstruction of ACL of left knee using bone-patellar tendon-bone autograft Myron Rojas DO Work Phone: History of reconstru ction of anterior cruciate ligament tear Status post arthroscopic reconstruction of anterior cruciate ligament of left knee using quadriceps tendon autograft Pepe Yañez Lilo PT Work Phone: History of reconstru ction of anterior cruciate ligament tear Status post arthroscopic reconstruction of anterior cruciate ligament of left knee using quadriceps tendon autograft Nereyda Vieira [employer] Work Phone: History of reconstru ction of anterior cruciate ligament tear Status post arthroscopic reconstruction of anterior cruciate ligament of left knee using quadriceps tendon autograft Pepe Kirby PT Work Phone: History of reconstru ction of anterior cruciate ligament tear Status post arthroscopic reconstruction of anterior cruciate ligament of left knee using quadriceps tendon autograft Nereyda Vieira [employer] Work Phone: History of reconstru ction of anterior cruciate ligament tear Status post arthroscopic reconstruction of anterior cruciate ligament of left knee using quadriceps tendon autograft Nereyda Vieira [employer] Work Phone: History of reconstru ction of anterior cruciate ligament tear Status post arthroscopic reconstruction of anterior cruciate ligament of left knee using quadriceps tendon autograft Jennifer Dozier [employer] Laparoscopic excisio n of cyst of left ovary Myron Rojas Plan of Treatment Date Care Activity Detail Author Start: 11-25-2024 End: 11-25-2024 Patient encounter procedure 11/25/2024 1:50 PM EDT Routine [facility] [address] [place] [id number] Doc Thomas, [address] [place] [address] [facility] Start: 11-16-2024 [facility] Start: 10-28-2024 End: 10-28-2024 Patient encounter procedure [facility] Comment on above: Arrived Start: 10-28-2024 End: 10-28-2025 12 lead ECG ECG 12 lead unit performed ECG Routine Heart palpitations Expected: 10/28/2024 (Approximate), Expires: 10/28/2025 [facility] Comment on above: Expected: 10/28/2024 (Approximate), Expires: 10/28/2025 Start: 10-28-2024 End: 10-28-2025 CBC panel - Blood by Automated count CBC Lab Routine Diabetes mellitus screening Expected: 10/28/2024 (Approximate), Expires: 10/28/2025 [facility] Work Phone: Comment on above: Expected: 10/28/2024 (Approximate), Expires: 10/28/2025 Start: 10-28-2024 End: 10-28-2026 Echocardiogram 2D complete Echocardiogram 2D complete Echocardiography Routine Heart palpitations Expected: 10/28/2024 (Approximate), Expires: 10/28/2026 [facility] Comment on above: Expected: 10/28/2024 (Approximate), Expires: 10/28/2026 Start: 10-28-2024 End: 10-28-2025 Measurement of glucose 1 hour after glucose challenge for glucose tolerance test Glucose tolerance, 1 hour Lab Routine Diabetes mellitus screening Expected: 10/28/2024 (Approximate), Expires: 10/28/2025 [facility] Comment on above: Expected: 10/28/2024 (Approximate), Expires: 10/28/2025 Start: 09-30-2024 End: 09-30-2024 Patient encounter procedure 09/30/2024 3:40 PM EDT Routine [facility] [place] [id number] Doc Thomas, DO [address] [place] [address] [facility] Start: 09-30-2024 End: 09-30-2024 Professional / ancillary services management 09/30/2024 2:30 PM EDT Ancillary Procedure [facility] [address] [place] [id number] [facility] Start: 09-02-2024 End: 09-02-2024 Patient encounter procedure [facility] Comment on above: Arrived Start: 09-02-2024 End: 11-02-2024 Alpha fetoprotein, maternal Alpha fetoprotein, maternal Lab Routine Second trimester ([facility]) Expected: 09/02/2024 (Approximate), Expires: 11/02/2024 [facility] Comment on above: Expected: 09/02/2024 (Approximate), Expires: 11/02/2024 Start: 09-02-2024 End: 12-03-2024 US for US OB 14+ weeks anatomy scan Imaging Routine Screening, , for anatomic survey ([facility]) Expected: 09/02/2024, Expires: 12/03/2024 [facility] Work Phone: Comment on above: Expected: 09/02/2024 , Expires: 12/03/2024 Start: 08-05-2024 End: 08-05-2024 Patient encounter procedure [facility] Comment on above: Arrived Start: 07-16-2024 End: 07-16-2025 ABO/Rh ABO/Rh Lab Routine Missed menses , unspecified gestational age Expected: 07/16/2024 (Approximate), Expires: 07/16/2025 [facility] Comment on above: Expected: 07/16/2024 (Approximate), Expires: 07/16/2025 Start: 07-16-2024 End: 07-16-2025 Blood type and Indirect antibody screen panel - Blood Type and screen Lab Routine Missed menses , unspecified gestational age Expected: 07/16/2024 (Approximate), Expires: 07/16/2025 [facility] Comment on above: Expected: 07/16/2024 (Approximate), Expires: 07/16/2025 Start: 07-16-2024 End: 07-16-2025 Drugs of abuse panel - Urine by Screen method Rapid drug screen, urine Lab Routine , unspecified gestational age Encounter for supervision of normal first in first trimester Expected: 07/16/2024 (Approximate), Expires: 07/16/2025 [facility] Comment on above: Expected: 07/16/2024 (Approximate), Expires: 07/16/2025 Start: 07-10-2024 End: 10-09-2024 US Pelvis transvaginal US OB transvaginal Imaging Routine Missed menses Expected: 07/10/2024, Expires: 10/09/2024 [facility] Work Phone: Comment on above: Expected: 07/10/2024 , Expires: 10/09/2024 Start: 02-21-2024 End: 02-21-2024 Patient encounter procedure 02/21/2024 8:00 AM EST Office Visit [facility] [address] [place] [phone] Myron Rojas, [address] [place] [address] [facility] Start: 02-19-2024 End: 02-19-2024 Patient encounter procedure 02/19/2024 3:30 PM EST Office Visit [facility] [address] [place] [address] Rosalie Payne MD [address] [address] 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CMS/HCC); Chronic fatigue; Cigarette smoker; Non morbid obesity due to excess calories [facility] Comment on above: 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CMS/HCC); Chronic fatigue; Cigarette smoker; Non morbid obesity due to excess calories Start: 02-19-2024 End: 02-18-2025 Insulin, random Insulin, random Lab Routine Non morbid obesity due to excess calories Postural orthostatic tachycardia syndrome (POTS) Expected: 02/19/2024 (Approximate), Expires: 02/18/2025 [facility] Work Phone: Comment on above: Expected: 02/19/2024 (Approximate), Expires: 02/18/2025 Start: 01-17-2024 End: 01-17-2024 ambulatory 01/17/2024 2:30 PM EDT Treatment [facility] [address] [place] [phone] Pepe Kirby, PT [address] [place] [address] [facility] Start: 01-14-2024 End: 01-14-2024 ambulatory 01/14/2024 3:30 PM EDT Treatment [facility] [address] [place] [phone] Nereyda Vieira, [employer] [address] [place] [address] [facility] Start: 01-10-2024 End: 01-10-2024 ambulatory 01/10/2024 2:30 PM EDT Treatment [facility] [address] [place] [phone] Pepe Kirby, PT [address] [place] [address] [facility] Start: 01-07-2024 End: 01-07-2024 ambulatory 01/07/2024 3:30 PM EDT Treatment [facility] [address] [place] [phone] Pepe Kirby, PT [address] [place] [address] [facility] Start: 01-03-2024 End: 01-03-2024 ambulatory 01/03/2024 2:30 PM EDT Treatment [facility] [address] [place] [phone] Pepe Kirby, PT [address] [place] [address] [facility] Start: 12-31-2023 End: 12-31-2023 ambulatory 12/31/2023 3:30 PM EDT Treatment [facility] [address] [place] [phone] Jennifer Dozier, EUGENE [facility] Start: 12-27-2023 End: 12-27-2023 ambulatory [facility] Comment on above: Arrived Start: 12-24-2023 End: 12-24-2023 ambulatory 12/24/2023 3:00 PM EDT Treatment [facility] [address] [place] [phone] Dariel Nereyda, [employer] [address] [place] [address] [facility] Start: 12-17-2023 End: 12-17-2023 ambulatory 12/17/2023 3:00 PM EDT Treatment [facility] [address] [place] [phone] Pepe Kirby, PT [address] [place] [address] [facility] Start: 12-09-2023 End: 12-09-2023 Patient encounter procedure [facility] Comment on above: Arrived Start: 12-03-2023 End: 12-03-2023 ambulatory 12/03/2023 3:30 PM EDT Treatment [facility] [address] [place] [phone] Nereyda Vieira, [employer] DIRECTOR [address] [place] [address] Arrived [facility] Comment on above: Arrived Start: 11-19-2023 End: 11-19-2023 ambulatory [facility] Comment on above: Acute pain of left k nee (Primary Dx); Status post arthroscopic reconstruction of anterior cruciate ligament of left knee using quadriceps tendon autograft Start: 11-17-2023 Influenza vaccination Influenza Vacc ine (#1) [facility] Start: 09-02-2023 [facility] Start: 05-07-2023 End: 05-07-2023 Patient encounter procedure 05/07/2023 11:10 AM EST Office Visit [facility] [address] [place] [phone] Doc Thomas, [address] [place] [address] [facility] Start: 05-03-2023 End: 05-03-2023 Patient encounter procedure 05/03/2023 11:00 AM EST Office Visit [facility] [address] [place] [phone] Myron Rojas, DO [address] [place] [address] [facility] Start: 04-23-2023 End: 04-23-2023 Patient encounter procedure 04/23/2023 8:00 AM EST Procedure Visit [facility] Myron Rojas, DO [address] [place] [address] [facility] Start: 04-22-2023 End: 04-22-2023 ambulatory 04/22/2023 2:30 PM EST Evaluation [facility] [address] [phone] Pepe Kirby, PT [address] [place] [address] [facility] Start: 11-16-2022 Influenza vaccination Influenza Vacc ine (#1) [facility] Start: 08-30-2021 DTaP/Tdap/Td vaccine (5 - Td or Tdap) DTaP/Tdap/Td vaccine (5 - Td or Tdap) [facility] Start: 11-16-2020 Influenza vaccination Flu vaccine (# 1) [facility] Start: 06-09-2020 Screening for malign ant neoplasm of cervix [facility] Start: 06-09-2018 DTaP/Tdap/Td vaccine (1 - Tdap) DTaP/Tdap/Td vaccine (1 - Tdap) [facility] Work Phone: Start: 2015 Screening for Chlamy jasper trachomatis Chlamydia screen [facility] Start: 06-09-2014 HIV screening HIV screen [facility] Start: 11-23-2011 Varicella vaccine (2 of 2 - 2-dose childhood series) Varicella vaccine (2 of 2 - 2-dose childhood series) [facility] Start: 2011 COVID-19 Vaccine (1) COVID-19 Vaccin e (1) [facility] [employer] Phone: Start: 2011 Depression Screen Depression Screen [facility] Start: 06-09-2010 HPV vaccine (1 - 2-d ose series) HPV vaccine (1 - 2-dose series) [facility] Start: 06-09-2004 COVID-19 Vaccine (1) COVID-19 Vaccin e (1) [facility] Start: 06-09-2000 Varicella vaccine (1 of 2 - 2-dose childhood series) Varicella vaccine (1 of 2 - 2-dose childhood series) [facility] [employer] Phone: Start: 1999 Hepatitis C screening Hepatitis C sc reen [facility] Bacteria identified in Urine by Culture Urine culture Microbiology Routine Missed menses Ordered: 07/16/2024 [facility] Comment on above: Ordered: 07/16/2024 CBC W Auto Different ial panel - Blood CBC and differential Lab Routine Missed menses , unspecified gestational age Ordered: 07/16/2024 [facility] Comment on above: Ordered: 07/16/2024 CHLAMYDIA TRACHOMATI S (GENITO/STI) CHLAMYDIA TRACHOMATIS (GENITO/STI) Lab Routine STD exposure Ordered: 10/28/2024 [facility] Comment on above: Ordered: 10/28/2024 Cytology Cervical or vaginal smear or scraping study Pap Smear Pathology and Cytology Routine Well woman exam with routine gynecological exam Ordered: 10/28/2024 [facility] Comment on above: Ordered: 10/28/2024 Hemoglobin A1c/Hemoglobin.total in Blood Hemoglobin A1c Lab Routine Missed menses , unspecified gestational age Ordered: 07/16/2024 [facility] Comment on above: Ordered: 07/16/2024 Hepatitis B virus surface Ag [Presence] in Serum or Plasma by Immunoassay Hepatitis B surface antigen Lab Routine Missed menses , unspecified gestational age Ordered: 07/16/2024 [facility] Comment on above: Ordered: 07/16/2024 Hepatitis C virus Ab [Presence] in Serum or Plasma by Immunoassay Hepatitis C antibody Lab Routine Missed menses , unspecified gestational age Ordered: 07/16/2024 [facility] Comment on above: Ordered: 07/16/2024 HIV-1/HIV-2 antigen/antibody combination immunoassay HIV-1 and HIV-2 antibodies Lab Routine Missed menses , unspecified gestational age Ordered: 07/16/2024 [facility] Comment on above: Ordered: 07/16/2024 Neisseria gonorrhoea e DNA [Presence] in Unspecified specimen by QUEENIE with probe detection Neisseria gonorrhea DNA probe, direct Lab Routine STD exposure Ordered: 10/28/2024 [facility] Comment on above: Ordered: 10/28/2024 Patient Education Hiatal hernia Hemorrhoids Gastritis [facility] your [facility] Work Phone: Reagin Ab [Presence] in Serum by RPR RPR Lab Routine Missed menses , unspecified gestational age Ordered: 07/16/2024 [facility] Comment on above: Ordered: 07/16/2024 Rubella antibody, IgG Rubella an tibody, IgG Lab Routine Missed menses , unspecified gestational age Ordered: 07/16/2024 [facility] Comment on above: Ordered: 07/16/2024 SURESWAB(R) ADVANCED VAGINITIS PLUS, TMA SURESWAB(R) ADVANCED VAGINITIS PLUS, TMA Pathology and Cytology Routine STD exposure Ordered: 10/28/2024 [facility] Comment on above: Ordered: 10/28/2024 End: 08-05-2025 Thyrotropin [Units/volume] in Serum or Plasma TSH Lab Routine 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CMS/HCC) [id number] for 6 Occurrences starting 08/05/2024 until 08/05/2025 [facility] Work Phone: Comment on above: [id number] for 6 Occurr ences starting 08/05/2024 until 08/05/2025 US Pelvis transvaginal US OB tra nsvaginal Imaging Routine Missed menses 07/16/2024 1:59 PM EDT [facility] Immunizations Immunization Date Immunization Notes Care Provider Zenon will 11-12-2016 hepatitis B vaccine, adult dosage Pepe Kirby PT Work Phone: [facility] 11-12-2016 meningococcal oligosaccharide (groups A, C, Y and W-135) diphtheria toxoid conjugate vaccine (MCV4O) Pepe Kirby PT Work Phone: [facility] 03-31-2012 hepatitis A vaccine, pediatric/adolescent dosage, 2 dose schedule Pepe Kirby PT Work Phone: [facility] 08-31-2011 hepatitis A vaccine, pediatric/adolescent dosage, 2 dose schedule Pepe Kirby PT Work Phone: [facility] 08-31-2011 tetanus toxoid, redu leyla diphtheria toxoid, and acellular pertussis vaccine, adsorbed Pepe Kirby PT Work Phone: [facility] 08-31-2011 varicella virus vaccine Pepe Kirby PT Work Phone: [facility] 09-11-2000 haemophilus influenz ae type b conjugate and Hepatitis B vaccine Pepe Kirby PT Work Phone: [facility] 09-11-2000 haemophilus influenz ae type b vaccine, HbOC conjugate Pepe Kirby PT Work Phone: [facility] 09-11-2000 hepatitis B vaccine, pediatric or pediatric/adolescent dosage Pepe Kirby PT Work Phone: [facility] 09-11-2000 measles, mumps and r ubella virus vaccine Pepe Kirby PT Work Phone: [facility] 09-11-2000 poliovirus vaccine, inactivated Pepe Kirby PT Work Phone: [facility] 03-26-2000 DTaP-Haemophilus influenzae type b conjugate vaccine Pepe Kirby PT Work Phone: [facility] 03-26-2000 pneumococcal conjuga te vaccine, 7 valent Pepe Kirby PT Work Phone: [facility] 1999 diphtheria, tetanus toxoids and acellular pertussis vaccine, Haemophilus influenzae type b conjugate, and poliovirus vaccine, inactivated ([id number]) Pepe Kirby PT Work Phone: [facility] 1999 diphtheria, tetanus toxoids and acellular pertussis vaccine, Haemophilus influenzae type b conjugate, and poliovirus vaccine, inactivated ([id number]) Pepe Kirby PT Work Phone: [facility] 1999 hepatitis B vaccine, pediatric or pediatric/adolescent dosage Pepe Kirby PT Work Phone: [facility] 1999 hepatitis B vaccine, pediatric or pediatric/adolescent dosage Pepe Kirby PT Work Phone: [facility] Payers Date Payer Category Payer Self-pay 2023 Unknown [id number] 2022 Unknown [id number] 2022 Blue [employer] Blue Shield 1.2.8 [id number] 2022 Unknown [id number]. [id number] 2020 Unknown [id number] 1.2.840.213694.1.13.239.2.7.3.911688.315 2006 Private Health Insurance [id number] 1999 Unknown [id number] 2.16.8 40.1.171017.3.579.2.173 1999 Unknown [id number] 2.16.8 40.1.120122.3.579.2.173 1999 Unknown [id number] 2.16.8 40.1.374494.3.579.2.173 1999 Unknown [id number] 2.16.84 0.1.748331.3.579.2.593 1999 Unknown [id number] 2.16.84 0.1.435617.3.579.2.593 1999 Unknown [id number] 2.16.8 40.1.879654.3.579.2.727 1999 Unknown [id number] 2.16.8 40.1.831012.3.579.2.727 1999 Unknown [id number] 2.16.8 40.1.023879.3.579.2.1259 1999 Unknown [id number] 2.16.8 40.1.522840.3.579.2.9 1999 Unknown [id number] 2.16.8 40.1.143733.3.579.2.1258 1999 Unknown [id number] 2.16.84 0.1.004029.3.579.2.1258 1999 Unknown [id number] 2.16.84 0.1.098800.3.579.2.1258 1999 Unknown [id number] 2.16.84 0.1.375832.3.579.2.1258 1999 Unknown [id number] 2.16.84 0.1.358469.3.579.2.1258 1999 Unknown [id number] 2.16.84 0.1.955411.3.579.2.1258 1999 Unknown [id number] 2.16.84 0.1.475285.3.579.2.1258 1999 Unknown [id number] 2.16.84 0.1.816441.3.579.2.1258 1999 Unknown [id number] 2.16.84 0.1.501304.3.579.2.1258 1999 Unknown [id number] 2.16.84 0.1.642288.3.579.2.1258 1999 Unknown [id number] 2.16.84 0.1.095410.3.579.2.1258 1999 Unknown [id number] 2.16.84 0.1.984052.3.579.2.1259 1999 Unknown [id number] 2.16.84 0.1.114395.3.579.2.1259 1999 Unknown [id number] 2.16.84 0.1.215584.3.579.2.9 1999 Unknown [id number] 2.16.84 0.1.487791.3.579.2.9 1999 Unknown [id number] 2.16.84 0.1.076363.3.579.2.9 1999 Unknown [id number] 2.16.84 0.1.553004.3.579.2.1259 1999 Unknown [id number] 2.16.84 0.1.032320.3.579.2.9 1999 Unknown [id number] 2.16.84 0.1.724857.3.579.2.1259 1959 Unknown [id number] 2.1 6.840.1.066233.19 1959 Unknown [id number] [facility] GTFAN [id number] 2.16.840.1.596818.19 Unknown [id number] 2.16.8 40.1.153285.3.579.2.531 Social History Date Type Detail Facility Start: 09-19-2020 End: 12-14-2020 Tobacco smoking status [facility] Never smoker [employer] Phone: Start: 09-19-2020 End: 05-10-2023 Tobacco use and exposure Never used [employer] Start: 1999 Sex Assigned At Not on file [employer] Phone: Exposure to SARS-CoV -2 (event) Not sure [employer] Start: 12-14-2020 End: 05-24-2021 Alcohol intake Current drinker of alcohol (finding) [employer] Phone: Start: 12-14-2020 Alcohol Comment Rare [employer] Phone: Start: 12-11-2022 End: 02-26-2024 Sex Assigned At [facility] Tobacco Current vaping o r e-cigarette use Smokeless Tobacco Use:. Vaping [facility] Tobacco smoking status No Smokin g Status Entered [facility] Start: 02-09-2023 End: 05-10-2023 Tobacco smoking status [facility] Occasional tobacco smoker [facility] Start: 04-15-2023 End: 09-30-2024 Alcohol intake Ex-drinker (finding) [facility] Start: 12-11-2022 End: 02-26-2024 History of Social function [facility] Within the last year , have you been afraid of your partner or ex-partner? No [facility] Are you now , , , , never or living with a partner? [facility] How often to you hav e a drink containing alcohol? 2-4 times a month [facility] How many standard dr inks containing alcohol do you have on a typical day? 1 or 2 [facility] How often do you hav e 6 or more drinks on 1 occasion? Never [facility] How hard is it for y ou to pay for the very basics like food, housing, medical care, and heating Somewhat hard [facility] Do you feel stress - tense, restless, nervous, or anxious, or unable to sleep at night because your mind is troubled all the time - these days [OSQ] Only a little [facility] (I/We) worried wheth er (my/our) food would run out before (I/we) got money to buy more. Never true [facility] In the past 12 month s, has lack of transportation kept you from medical appointments or from getting medications? No [facility] Start: 12-10-2022 Education 11 [facility] Start: 01-10-2023 Alcohol Comment 2-4 drinks per week [facility] Start: 1999 Sex Assigned At Female [facility] Start: 12-10-2022 Gender identity Identifies as female gender (finding) [facility] Start: 07-25-2023 End: 09-02-2023 Tobacco smoking status NHIS Smoker (finding) [facility] History of tobacco use Cigarette Smoker [facility] Start: 03-15-2025 [facility] Goals Date Patient Goal Desired Activity /State Functional Status Date Assessment Result Facility 04-03-2023 Functional Status No [facility] Clinical Notes 04-07-2021 to 10-28-2024 Jessica Steen NP - 10/28/2024 2:30 PM Meggan Anton LPN - 09/30/2024 3:40 PM Leida Steen NP - 09/02/2024 3:50 PM Meggan Anton LPN - 08/05/2024 1:50 PM EDT Note Date & Type Note Facility 10-28-2024 History of Present illness Narrative Reason for Appointment: Patient ID: Aleta Castro is a 24 y.o. female who [...] anterior cruciate ligament of left knee using quadriceps tendon autograft 05/10/2023 Abnormal bleeding in menstrual cycle [...] Left 2019 OVARIAN CYST REMOVAL Left 05/20/2020 [facility] William VAGINAL DELIVERY REVIEW OF SYSTEMS Review [...] nursing note reviewed. Exam conducted with a material control clerk present. Vitals: Estimated body mass index is 28.49 kg/m as calculated from the following: Height as of 24: 5' 4 . Weight as of this encounter: 166 lb. BP: 130/80 Patient's last menstrual period was 05/16/2024. ASSESSMENT & PLAN ICD-10-CM 1. Second trimester ([facility]) Z34.92 POCT urinalysis dipstick manually resulted 2. 23 weeks gestation of ([facility]) Z3A.23 3. Diabetes mellitus screening Z13.1 CBC [...] and prior work up for palpitations with [place] [facility]. Plan will be to continue TSH every 4 weeks, EKG and cardiac Echo and follow up with [place] [facility] and a referral will be made she declined Metoprolol at this time. Patient is to return to office in 4 week for routine OB appointment. Documented by Jessica Steen NP on behalf of: Jessica Steen NP documented in this encounter [facility] 09-30-2024 History of Present illness Narrative Reason for Appointment: Patient ID: Aleta Castro is a 24 y.o. female who [...] anterior cruciate ligament of left knee using quadriceps tendon autograft 05/10/2023 Abnormal bleeding in menstrual cycle [...] Left 2019 OVARIAN CYST REMOVAL Left 05/20/2020 [facility] William VAGINAL DELIVERY REVIEW OF SYSTEMS Review of Systems: Review of Systems Constitutional: Negative. HENT: Negative. Eyes: Negative. Respiratory: Negative. Cardiovascular: Negative. Gastrointestinal: Negative. Genitourinary: Negative. Musculoskeletal: Negative. Skin: [...] nursing note reviewed. Exam conducted with a material control clerk present. Vitals: Estimated body mass index is 28.29 kg/m as calculated from the following: Height as of 24: 5' 4 . Weight as of this encounter: 164 lb 12.8 oz. BP: 110/72 Patient's last menstrual period was 05/16/2024. ASSESSMENT & PLAN ICD-10-CM 1. 19 weeks gestation of ([facility]) Z3A.19 POCT urinalysis dipstick manually resulted 2. Second trimester ([facility]) Z34.92 POCT urinalysis dipstick manually resulted Patient presents today for a routine obstetrics appointment. Patient is currently 19w4d with a Estimated Date of Delivery: 02/20/25. Pt had anatomy scan prior to appt. Will notify of results when read. Pt to return in 4 weeks for scheduled OB appt. Pt will do growth ultrasounds and NST/BPPs. Documented by Lissette Anton LPN on behalf of: Doc Thomas DO documented in this encounter [facility] 09-02-2024 History of Present illness Narrative Reason for Appointment: Patient ID: Aleta Castro is a 24 y.o. female who presents for Routine Visit Patient presents today for Return OB appointment. MEDICATIONS Current Outpatient Medications Medication Instructions metoclopramide (REGLAN) 10 mg, Oral, 3 times daily before meals, Take 1 tablet by mouth 30 minutes prior to meals 3 times daily as needed for nausea. ondansetron ODT (ZOFRAN-ODT) 4 mg, Oral, Every 6 hours PRN pantoprazole (PROTONIX) 40 mg, Daily before breakfast ALLERGIES Allergies Allergen Reactions Azithromycin Hives Other [...] anterior cruciate ligament of left knee using quadriceps tendon autograft 05/10/2023 Abnormal bleeding in menstrual cycle [...] Left 2019 OVARIAN CYST REMOVAL Left 05/20/2020 [facility] William VAGINAL DELIVERY REVIEW OF SYSTEMS Review of Systems: Review of Systems Constitutional: Negative. HENT: Negative. Eyes: Negative. Respiratory: Negative. Cardiovascular: Negative. Gastrointestinal: Negative. Genitourinary: Negative. Musculoskeletal: Negative. Skin: [...] nursing note reviewed. Exam conducted with a material control clerk present. Vitals: Estimated body mass index is 30.21 kg/m as calculated from the following: Height as of 02/26/24: 5' 4 . Weight as of 08/05/24: 176 lb. BP: Patient's last menstrual period was 05/16/2024. ASSESSMENT & PLAN ICD-10-CM 1. Second trimester ([facility]) Z34.92 Alpha fetoprotein, maternal Alpha fetoprotein, maternal POCT urinalysis dipstick manually resulted 2. 15 weeks gestation of ([facility]) Z3A.15 3. Screening, , for anatomic survey ([facility]) Z36.89 US OB 14+ weeks anatomy scan Return OB: Patient presents today for a routine obstetrics appointment. Patient is currently 15w4d . Patient states she is doing well but has complaints of being tired due to current . Patient has verbalizes frequent movement. labor precautions was discussed/given and patient was instructed to perform kick counts three times a day. TSH reviewed today 1.413 will repeat TSH every 4 weeks. Orders Placed This Encounter Procedures US OB 14+ weeks anatomy scan Alpha fetoprotein, maternal POCT urinalysis dipstick manually resulted Follow Up: Patient is to return to office in 4 week for routine OB appointment. Documented by Jessica Steen NP on behalf of: ADAN Gonzalez documented in this encounter [facility] 08-05-2024 History of Present illness Narrative Reason for Appointment: Patient ID: Aleta Castro is a 24 y.o. female who presents for Routine Visit Patient presents today for Return OB appointment. MEDICATIONS Current Outpatient Medications Medication Instructions magnesium oxide (MAG-OX) 400 mg, Oral, Daily metoclopramide (REGLAN) 10 mg, Oral, 3 times daily before meals, Take 1 tablet by mouth 30 minutes prior to meals 3 times daily as needed for nausea. 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 Hypotension determined by examination 12/10/2022 Juvenile osteochondrosis of tibial tuberosity 12/10/2022 Non morbid obesity due to excess calories 12/10/2022 Postural orthostatic tachycardia syndrome (POTS) 12/10/2022 Subclinical hypothyroidism (CMS/HCC) 12/10/2022 Acute pain of left knee 04/22/2023 Status post arthroscopic reconstruction of anterior cruciate ligament of left knee using quadriceps tendon autograft 05/10/2023 Abnormal bleeding in menstrual cycle 02/19/2024 Resolved Ambulatory Problems Diagnosis Date Noted Overweight (BMI 25.0-29.9) 12/10/2022 Past Medical History: Diagnosis Date Anxiety BMI 30.0-30.9,adult Chronic strep Depot contraception Depression (CMS/HCC) Flat foot History of being hospitalized History of ovarian cyst Negative test Neurocardiogenic syncope Personal history of other medical treatment POTS (postural orthostatic tachycardia syndrome) Syncope, cardiogenic HISTORY PAST MEDICAL HISTORY SOCIAL HISTORY Past Medical History: Diagnosis Date Anxiety BMI 30.0-30.9,adult Chronic strep Depot contraception Depression (CMS/HCC) Flat foot Flat footed feet turn in 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CMS/HCC) History of being hospitalized childbirth History of ovarian cyst Negative test Neurocardiogenic syncope Personal history of other medical treatment Normal body mass index ( BMI ) POTS (postural orthostatic tachycardia syndrome) Subclinical hypothyroidism (CMS/HCC) Syncope, cardiogenic Social History Tobacco Use Smoking [...] Left 2019 OVARIAN CYST REMOVAL Left 05/20/2020 [facility] [place] VAGINAL DELIVERY REVIEW OF SYSTEMS Review of Systems: Review of Systems Constitutional: Negative. HENT: Negative. Eyes: Negative. Respiratory: Negative. Cardiovascular: Negative. Gastrointestinal: Negative. Genitourinary: Negative. Musculoskeletal: Negative. Skin: [...] nursing note reviewed. Exam conducted with a material control clerk present. Vitals: Estimated body mass index is 30.21 kg/m as calculated from the following: Height as of 24: 5' 4 . Weight as of this encounter: 176 lb. BP: 110/76 Patient's last menstrual period was 05/16/2024. ASSESSMENT & PLAN ICD-10-CM 1. First trimester Z34.91 POCT urinalysis dipstick manually resulted 2. 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 Z3A.11 New OB: Patient presents today for 1st time obstetrics appointment with provider. Patient is currently 11w4d . Patients history has been reviewed in great detail including any potential risks. Patient stated she currently has no complaints. Expectations throughout regarding labs, ultrasounds, and appointments have been discussed with the patient in detail. It was reiterated that the patient is to drink 6-8 glasses of water a day, eat 6 small meals a day, do not consume raw or undercooked meat, and stay away from [facility]. Patient has been consulted regarding any further do's and don'ts of . Patient voiced understanding and all questions and concerns were answered. Given tsh standing order and advised to start baby aspirin Orders Placed This Encounter Procedures TSH POCT urinalysis dipstick manually resulted Follow Up: Patient is to return in 4 weeks for routine OB appointment. Documented by Lissette Anton LPN on behalf of: Doc Thomas DO documented in this encounter [facility] 07-16-2024 History of Present illness Narrative Reason for Appointment: Patient ID: Aleta Castro is a 24 y.o. female who presents for Amenorrhea Patient presents today for a Nurse OB Intake appointment. Patient is 8w5d with a Estimated Date of Delivery: 02/20/25 OB History Para Term AB Living 2 1 1 1 SAB IAB Ectopic Multiple Live Births # Outcome Date GA Lbr Regulo/2nd Weight Sex Type Anes PTL Lv 2 Current 1 Term 10/09/18 39w0d 7 lb 4 oz M Vag-Spont Obstetric Comments Lat pap smear 05/01/2022 neg Current Medications: has a current medication list which includes the following prescription(s): magnesium oxide, metoclopramide, ondansetron odt, and pantoprazole. 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 Non morbid obesity due to excess calories 12/10/2022 Postural orthostatic tachycardia syndrome (POTS) 12/10/2022 Subclinical hypothyroidism (CMS/HCC) 12/10/2022 Acute pain of left knee 04/22/2023 Status post arthroscopic reconstruction of anterior cruciate ligament of left knee using quadriceps tendon autograft 05/10/2023 Abnormal bleeding in menstrual cycle 02/19/2024 Resolved Ambulatory Problems Diagnosis Date Noted Overweight (BMI 25.0-29.9) 12/10/2022 Past Medical History: Diagnosis Date Anxiety BMI 30.0-30.9,adult Chronic strep Depot contraception Depression (CMS/HCC) Flat foot History of being hospitalized History of ovarian cyst Negative test Neurocardiogenic syncope Personal history of other medical treatment POTS (postural orthostatic tachycardia syndrome) Syncope, cardiogenic Family History Problem Relation Name Age of Onset Thyroid disease Mother No Known Problems Brother Cancer Maternal Grandmother Anaya Hypertension Maternal Grandfather Hyperlipidemia Maternal Grandfather Diabetes Paternal Grandfather . Hypertension Paternal Grandfather . Hyperlipidemia Paternal Grandfather . Other (POTS) Mother's Sister Other (POTS) Mother's Brother Social History Tobacco Use Smoking status: Some Days Types: Cigarettes Smokeless tobacco: Never Vaping Use Vaping status: Every Day Start date: 03/18/2020 Devices: Disposable Passive vaping exposure: Yes Substance Use Topics Alcohol use: Not Currently Comment: 2-4 drinks per week Drug use: Never Past Surgical History: Procedure Laterality Date ANTERIOR CRUCIATE LIGAMENT REPAIR 04/23/23 COLONOSCOPY 2023 EGD 2023 OVARIAN CYST REMOVAL Left 2019 OVARIAN CYST REMOVAL Left 05/20/2020 [facility] [place] VAGINAL DELIVERY Allergies Allergen Reactions Azithromycin Other Reaction(s): hives Latex Other Reaction(s): Unknown Midodrine Other Reaction(s): body numbness Vitals: Estimated body mass index is 30.21 kg/m as calculated from the following: Height as of 02/26/24: 5' 4 . Weight as of 02/26/24: 176 lb. BP: Patient's last menstrual period was 05/16/2024. Assessment/Plan Diagnoses and all orders for this visit: Missed menses - US OB transvaginal; Future - Type and screen; Future - ABO/Rh; Future - CBC and differential - Hemoglobin A1c - RPR - Rubella antibody, IgG - Hepatitis B surface antigen - Hepatitis C antibody - HIV-1 and HIV-2 antibodies - Urine culture - POCT , urine manually resulted - POCT urinalysis dipstick manually resulted , unspecified gestational age - Type and screen; Future - ABO/Rh; Future - CBC and differential - Hemoglobin A1c - RPR - Rubella antibody, IgG - Hepatitis B surface antigen - Hepatitis C antibody - HIV-1 and HIV-2 antibodies - Rapid drug screen, urine; Future Encounter for supervision of normal first in first trimester - Rapid drug screen, urine; Future Nausea/vomiting in - metoclopramide (Reglan) 10 MG tablet; Take 1 tablet (10 mg) by mouth in the morning and 1 tablet (10 mg) at noon and 1 tablet (10 mg) in the evening. Take before meals. Take 1 tablet by mouth 30 minutes prior to meals 3 times daily as needed for nausea. Cluster headache, not intractable, unspecified chronicity pattern - magnesium oxide (Mag-Ox) 400 MG tablet; Take 1 tablet (400 mg) by mouth Daily Nurse Note: OB Intake: Patient presents today for first OB visit. Patients history has been reviewed in great detail including any potential risks. Patient signed consent forms and patient desires testing in both trimesters. Patient currently has no complaints and has been advised to drink 6-8 glasses of water a day, eat no raw or undercooked meat, and stay away from [facility]. Patient has also been advised to not change litter boxes and eat 6 small meals a day. Patient has been consulted regarding the do's and don'ts of . Patient was given labs and all questions and concerns were answered. Follow Up: Patient is to return in 4 weeks for routine OB appointment. Orders Placed This Encounter Procedures Urine culture US OB transvaginal Type and screen ABO/Rh CBC and differential Hemoglobin A1c RPR Rubella antibody, IgG Hepatitis B surface antigen Hepatitis C antibody HIV-1 and HIV-2 antibodies Rapid drug screen, urine POCT , urine manually resulted POCT urinalysis dipstick manually resulted Follow Up: Patient is to have labs drawn at directed and return to office for initial OB appointment with provider. Patient may call office as needed with any concerns or questions. Nurse Visit Completed by: Aliya Aguilar LPN documented in this encounter [facility] 02-26-2024 History of Present illness Narrative Images from the original note were not included. Aleta Castro is a 23 y.o. female presents with chief complaint of left knee sprain, history of anterior cruciate ligament reconstruction. HPI: Aleta returns here today for repeat evaluation of the above. She is doing fairly well. She did see Dr. Oneal. She was referred back here, no further care was warranted per his discussion of her. She does feel a lot better. She does want to get back into the gym. She feels stable. She has had no interval injury. SUBJECTIVE: MEDICATIONS: Current Outpatient Medications Medication Instructions ibuprofen 200 MG tablet Take by mouth. pantoprazole (PROTONIX) 40 mg, Daily before breakfast ALLERGIES: Allergies Allergen Reactions Azithromycin Other Reaction(s): hives Latex Other Reaction(s): Unknown Midodrine Other Reaction(s): body numbness SURGICAL HISTORY: Past Surgical History: Procedure Laterality Date ANTERIOR CRUCIATE LIGAMENT REPAIR 04/23/23 COLONOSCOPY 2023 EGD 2023 OVARIAN CYST REMOVAL Left 2019 OVARIAN CYST REMOVAL Left 05/20/2020 [facility] [place] VAGINAL DELIVERY FAMILY HISTORY: Family History Problem Relation Name Age of Onset Thyroid disease Mother No Known Problems Brother Cancer Maternal Grandmother Anaya Hypertension Maternal Grandfather Hyperlipidemia Maternal Grandfather Diabetes Paternal Grandfather . Hypertension Paternal Grandfather . Hyperlipidemia Paternal Grandfather . Other (POTS) Mother's Sister Other (POTS) Mother's Brother SOCIAL HISTORY: Social History Tobacco Use Smoking status: Some Days Types: Cigarettes Smokeless tobacco: Never Vaping Use Vaping status: Every Day Start date: 03/18/2020 Devices: Disposable Passive vaping exposure: Yes Substance Use Topics Alcohol use: Not Currently Comment: 2-4 drinks per week Drug use: Never Depression: Not on file REVIEW OF SYMPTOMS: The review of systems, history and current medications list are all reviewed today. OBJECTIVE: Visit Vitals Ht 5' 4 Wt 176 lb BMI 30.21 kg/m OB Status Having periods Smoking Status Some Days BSA 1.9 m Physical Exam Her orthopedic exam here today shows no gross malalignment or deformity of the knee. Dinora is negative. No tenderness over the medial or lateral compartments. The calf and thigh are otherwise supple. Examination of the contralateral right knee reveals arc of motion without significant difficulty. Dinora is negative. X-rays none new here today. ASSESSMENT AND PLAN: Assessment/Plan Left knee sprain, status post anterior cruciate ligament reconstruction. The findings are discussed. The treatment alternatives are outlined. We did recommend supportive care and advancement of all activities. We did discuss transition back to the gym. She does question activities such as [place]. We did discuss bracing, time frame of bracing, etc. All questions are otherwise answered. Her return here with myself will be left only as needed at this point. Cosigned by Myron Rojas DO at 03/02/2024 7:42 AM EST documented in this encounter [facility] 02-19-2024 History of Present illness Narrative Images from the original note were not included. Patient ID: Aleta Castro is a 23 y.o. female who presents for: Thyroid: Pt here today to review his/hers thyroid labs and any medication changes needed. Fatigue: Present, worsened Weight Gain: Absent Inability to lose weight: Absent Hair Changes: Absent Review of Systems Constitutional: Positive for fatigue. Negative for appetite change. HENT: Negative for trouble swallowing and voice change. Cardiovascular: Positive for palpitations. Musculoskeletal: Positive for arthralgias and myalgias. Psychiatric/Behavioral: Negative for sleep disturbance. The patient is nervous/anxious. Endocrine: Positive for cold intolerance. Negative for heat intolerance. Telephone on 02/03/2024 Component Date Value Ref Range Status TSH 02/04/2024 1.98 mIU/L Final Comment: Reference Range > or = 20 Years 0.40-4.50 Ranges First trimester 0.26-2.66 Second trimester 0.55-2.73 Third trimester 0.43-2.91 T4, FREE 02/04/2024 1.1 0.8 - 1.8 ng/dL Final T3, FREE 02/04/2024 3.6 2.3 - 4.2 pg/mL Final Objective The patient is pleasant and in no acute distress The patient does not appear to have a gross neurologic deficit. The patient has good eye contact and clear speech Visit Vitals Pulse 88 Ht 5' 4 Wt 176 lb SpO2 98% BMI 30.21 kg/m OB Status Having periods Smoking Status Some Days BSA 1.9 m Allergies Allergen Reactions Azithromycin Other Reaction(s): hives Latex Other Reaction(s): Unknown Midodrine Other Reaction(s): body numbness Current Outpatient Medications on File Prior to Visit Medication Sig Dispense Refill ibuprofen 200 MG tablet Take by mouth. pantoprazole (ProtoNix) 40 MG EC tablet Take 40 mg by mouth in the morning. Take before meals. No current facility-administered medications on file prior to visit. 1. Subclinical hypothyroidism (CMS/HCC) (Primary) Chronic problem, she is actually stable off of her medication. 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 - Comprehensive metabolic panel; Future - Thyroglobulin Antibody; Future - Thyroid peroxidase antibody; Future - Comprehensive metabolic panel - Thyroglobulin Antibody - Thyroid peroxidase antibody 2. 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CMS/HCC) - Thyroglobulin Antibody; Future - Thyroid peroxidase antibody; Future - Thyroglobulin Antibody - Thyroid peroxidase antibody 3. Cigarette smoker Chronic problem that is unstable. The patient continues to use tobacco products or nicotine. Your goal is to quit using tobacco or vapor, as it significantly worsens health risks and complicates treatments. The patient was given a chance to ask questions and they declined medical intervention. 4. Non morbid obesity due to excess calories - Cortisol; Future - Insulin, random; Future - Cortisol - Insulin, random 5. Postural orthostatic tachycardia syndrome (POTS) This was recently formally diagnosed by Cardiology. Along with her other symptomatology we will do a basic evaluation. - Comprehensive metabolic panel; Future - CBC and differential; Future - Iron and TIBC; Future - Cortisol; Future - Insulin, random; Future - Comprehensive metabolic panel - CBC and differential - Iron and TIBC - Cortisol - Insulin, random 6. Abnormal bleeding in menstrual cycle - Comprehensive metabolic panel; Future - CBC and differential; Future - Iron and TIBC; Future - Comprehensive metabolic panel - CBC and differential - Iron and TIBC documented in this encounter [facility] 12-27-2023 History of Present illness Narrative Physical Therapy Physical Therapy Treatment Visit Patient Name: Aleta Castro Today's Date: 12/27/2023 Visit number: 37 Supervised time: 25 min Total time: 30 min Time in: 2:30 pm Time out: 3:00 pm Subjective Aleta Castro 23 y.o. female presents to physical therapy w/ chief c/o L knee pain Mechanism of Onset: s/p injury 12/08/22 playing football in yard with and ACL reconstruction 04/23/23 QT auto Current deficits: pain, decreased ROM, strength, impaired functional mobility and gait Pain: Pt reports min pain at times this week, nil entering. Location: L knee Aggravating Factors: WBING, bending, lifting leg, ADLs/self care at times, laying leg flat at times, sleep Relieving factors: rest, ice Precautions: requesting Dr/pt specific protocol Objective Gait still slightly lacking TKE in stance at times Treatment Interventions Manual Therapy: MET for ant innominate rotation no needed Therapeutic Exercise: per CORBIN grid, ROM, flexibility, strengthening as appropriate x 30min, 25 min supervised Neuro Re-ed: Modalities: declined today Assessment/Plan Pt continues to demo good tolerance to strength progression over the last several weeks. No increased pain reported. Held SLS and side steps in loya today, last appt before DC to HEP, discussed easing back into gym and importance of single leg work. Pt requesting DC to [facility] at this time. documented in this encounter [facility] 12-17-2023 History of Present illness Narrative Physical Therapy Physical Therapy Treatment Visit Patient Name: Aleta Castro Today's Date: 12/17/2023 Visit number: 35 Supervised time: 27 min Total time: 32 min Time in: 3:00 pm Time out: 3:32 pm Subjective Aleta Castro 23 y.o. female presents to physical therapy w/ chief c/o L knee pain Mechanism of Onset: s/p injury 12/08/22 playing football in yard with and ACL reconstruction 04/23/23 QT auto Current deficits: pain, decreased ROM, strength, impaired functional mobility and gait Pain: Pt reports no pain on entry, pain free all week Location: L knee Aggravating Factors: WBING, bending, lifting leg, ADLs/self care at times, laying leg flat at times, sleep Relieving factors: rest, ice Precautions: requesting Dr/pt specific protocol Objective from IE 05/10/23 Gait: mod ind with otña crutches PWB amb over flexed knee ,foot flat, decreased step height and length toña L knee AROM 3-50 supine ERP with both, PROM able to get to 0 with discomfort. Unable to fully contract quad, unable to do QS-SLR without lag/pain so n/a at this time. L hip flex 3-/5, abd and ext 4/5 MMT MMT knee ext n/a at this time, flex=3/5 limited ROM. AA-needed in and out of bed with UE and/or R LE Treatment Interventions Manual Therapy: MET for ant innominate rotation Therapeutic Exercise: per CORBIN grid, ROM, flexibility, strengthening as appropriate x 20min, 15min supervised Neuro Re-ed: x 12 min for quad activation, posture, SLS Modalities: declined today Assessment/Plan Pt continues to demo good tolerance to strength progression, including recently added lateral walking Added black theraband to lateral walking and increased resistance of leg press and LAQ today with no issue. Continue as tolerated. documented in this encounter [facility] 12-09-2023 History of Present illness Narrative Images from the original note were not included. @ANAND@ [facility] Matthew is a 23 y.o. female who presents for Pain of the Left Knee HPI: History of Present Illness The patient is a 23-year-old female seen as a new patient to my practice today for her left knee. This is a referral from my partner, Dr. Rojas. She initially injured her knee exactly a year ago on 12/08/2022, resulting in a torn ACL. The injury occurred while playing football with her . She underwent ACL reconstruction with patellar tendon autograft performed by Dr. Rojas on 04/23/2023. I personally reviewed the operative report and arthroscopic photos available in [facility]. Following the surgery in April 2023, she made good progress with physical therapy until August 2023. At that time, she slipped at a wedding, landing on her left knee, which was forced into a hyperflexed position. This incident resulted in increased pain, swelling, and difficulty walking. She resumed physical therapy four weeks after the incident and has been attending sessions once a week for the past two months. She also performs exercises at home. She reports no instability in her knee currently. She was able to attend a concert wearing her knee brace without any issues. However, standing for extended periods causes some discomfort. She last saw Dr. Rojas a month ago and is feeling better now. SUBJECTIVE: MEDICATIONS: Current Outpatient Medications Medication Instructions ibuprofen 200 MG tablet Oral ALLERGIES: Allergies Allergen Reactions Azithromycin Other Reaction(s): hives Latex Other Reaction(s): Unknown Midodrine Other Reaction(s): body numbness SURGICAL HISTORY: Past Surgical History: Procedure Laterality Date ANTERIOR CRUCIATE LIGAMENT REPAIR 04/23/23 COLONOSCOPY 2023 EGD 2023 OVARIAN CYST REMOVAL Left 2019 OVARIAN CYST REMOVAL Left 05/20/2020 [facility] [place] VAGINAL DELIVERY FAMILY HISTORY: Family History Problem Relation Name Age of Onset Thyroid disease Mother No Known Problems Brother Cancer Maternal Grandmother Anaya Hypertension Maternal Grandfather Hyperlipidemia Maternal Grandfather Diabetes Paternal Grandfather . Hypertension Paternal Grandfather . Hyperlipidemia Paternal Grandfather . Other (POTS) Mother's Sister Other (POTS) Mother's Brother SOCIAL HISTORY: Social History Tobacco Use Smoking status: Some Days Types: Cigarettes Smokeless tobacco: Never Vaping Use Vaping status: Every Day Start date: 03/18/2020 Devices: Disposable Passive vaping exposure: Yes Substance Use Topics Alcohol use: Not Currently Comment: 2-4 drinks per week Drug use: Never Depression: Not on file REVIEW OF SYMPTOMS: Review of Systems The review of systems, history and current medications list are all reviewed today. OBJECTIVE: Visit Vitals Ht 5' 4 Wt 180 lb BMI 30.90 kg/m OB Status Having periods Smoking Status Some Days BSA 1.92 m Physical Exam Alert and oriented, no acute distress. Mood and affect are appropriate. Ambulating with ACL brace but otherwise independently. Gait is nonantalgic. Son is present. LEFT KNEE Well healed incisions. No effusion. ROM 0-135, symmetric to right knee. Quadriceps bulk and tone adequate but diminished compared to right knee. No patellar maltracking or apprehension. Good patellar mobility. Firm endpoint with Dinora's and anterior drawer. Negative posterior drawer. Nontender medial joint line. Tender over the lateral joint line. Pain with [place] laterally but no palpable click. Negative dial test at 30 and 90 in prone position. RIGHT KNEE The skin is warm, dry and intact. There is no effusion, no erythema. Full flexion and extension. Good quadriceps bulk and tone. There is no tenderness at the patellofemoral joint, medial or lateral joint line, patellar tendon, femoral condyles or proximal tibia. No cruciate or collateral instability. Negative Dat's. Negative Thessaly. Ortho Exam Results Imaging Three views, bilateral PA weight-bearing, sunrise, lateral of the left knee(s) taken in our office 09/25/2023 and saved to the permanent medical record are reviewed. Button appropriately positioned at distal femur. Tunnels visible from previous ACL reconstruction without tunnel widening. Postsurgical changes at the patella from graft harvest. Joint spaces preserved. MRI left knee NOMS IC 10/18/2023 report and images reviewed. ACL graft appears intact. No bone bruising in lateral compartment to suggest recent pivot shift injury. Small effusion. Medial meniscus, PCL, PLC, LCL, MCL intact. Signal in lateral meniscus which may be tear vs artifact. No OCD lesions. ASSESSMENT AND PLAN: I reviewed the history, physical exam, diagnostic studies, and diagnosis with the patient. Assessment & Plan 1. 7-2 months s/p ACL reconstruction, left knee. The patient experienced left knee pain following a fall at a wedding in August, which resulted in increased swelling and pain. An MRI indicated intact ACL graft but suggested a possible minor meniscal tear. She reports improvement over the past month with physical therapy. She is advised to continue her current rehabilitation regimen and consider increasing the frequency of physical therapy sessions to twice a week intermittently. A follow-up appointment with Dr. Rojas is recommended in a couple of months to assess her condition further. If symptoms such as instability, increased swelling, locking, or persistent pain occur, she should notify us promptly for an earlier evaluation. A total of 30 to 39 minutes was spent on this patient encounter which included chart review, check in, nurse triage, history taking, physical examination, diagnostic study review, patient counseling and discussion, entering information into the patient's medical record, and coordinating patient care. There are no diagnoses linked to this encounter. Kelvin Oneal D.O. Attestation This note was created using voice recognition through [employer]. documented in this encounter [facility] 09-02-[address] [facility] 09-02-2023 History and physical note Note Date/Time September 02, 2023 11:40am [facility] [address] [place] [address] Gastroenterology H&P Signed Patient: Aleta Castro MR#: [id number] : 2000 Acct:[id number] Age/Sex: 23 / F Adm Date: 4 Loc: Room: Type: [facility] Attending Dr: Marcelle Espinosa DO Copies to: DO Rosalie Orellana MD~ Date of Service: 09/02/2023 HISTORY & PHYSICAL: Patient's history with special attention to the cardiovascular, pulmonary systems and the current problem was reviewed with the patient immediately prior to the procedure. Present medications and doses reviewed in the EMR. Allergies and pertinent laboratory tests were also reviewedat this time in the EMR. The physical examination, as below, was then performed. Indication, assessment and HPI: 23-year-old female who presents for EGD and colonoscopy for nausea, GERD, dysphagia, abdominal pain, diarrhea. No prior EGDor colonoscopy Family history of GI malignancy? No PHYSICAL EXAMINATION General appearance: cooperative, NAD Skin: No jaundice, no rash or lesions Head: NCAT Eyes: Anicteric Neck: Supple Lungs: Normal respiratory effort, no use of accessory muscles Abdomen: Soft, nondistended Neuro: No focal deficits, Ox3. REVIEW OF SYSTEMS Constitutional: Denies malaise, fevers Cardiovascular: Denies chest pain, palpitations Respiratory: Denies shortness of breath, wheezing Gastrointestinal: As per HPI Genitourinary: Denies dysuria, polyuria Musculoskeletal: Denies joint swelling, joint stiffness Neurological: Denies confusion, numbness, tingling Endocrine: Denies fatigue Written informed consent obtained from the patient. Risks (including but not limited to perforation, infection, bloating, bleeding, need for emergent surgeryand loss of life), benefits and alternatives explained and questions answered. The patient verbalized understanding. Based on history patient is an appropriate candidate for the procedure. Marcelle Espinosa DO Documented By: Marcelle Espinosa DO 09/02/23 1139 Signed By: <Electronically signed by Marcelle Espinosa DO> 09/02/[address] [facility] Work Phone: 1(274) 159-795606-17-2024 [facility] [id number]01-15-2024 Evaluation note* Encounter Date Diagnosis Assessment Notes Treatment Notes Treatment Clinical Notes Mar, Sore throat (ICD-10 - J02.9) Mar, Viral URI (ICD-10 - J06.9) Common cold home care material was printed, Viral upper respiratory infection: adult home care material was printed. Rest. Drink plenty of fluids. Continue to take overthe counter Tylenol ans Motrin. Gargle warm salt water. You can use over the counter throat lozenges. Wash your hands regularly. Follow up with your Primary doctor if symptoms persist. Patient is a 22 yo female who presents with complaints of cough, congestion, runny nose, sore throat, fever for the past 4 days. Reports contact with other sick individuals. Denies vomiting, diarrhea, abdominal pain, does endorse headaches and nausea. Patient was tested for covid, flu, strep during visit and tested negative for all. Based on exam she is being diagnosed with a viral URI. Education materials printed. Patient encouraged to rest, push fluids, take over the counter medication and follow up with PCP if symptoms persist. [employer] Other 06-06-2022 Evaluation note* Encounter Date Diagnosis Assessment Notes Treatment Notes Treatment Clinical Notes Aug, Acute sinusitis, recurrence not specified, unspecified location (ICD-10 - J01.90) Drink plenty fluids, get plenty of rest. Take the prednisone as prescribed until gone. Use the Flonase inhaler as prescribed until your symptoms improve. Use the albuterol inhaler as prescribed as needed for cough or shortness of breath. Follow-up with your family physician if no improvement in 2 to 3 days. Go to the ER for worsening symptoms or concerns Aug, Bronchitis (ICD-10 - J40) [employer] Other 03-09-2022 Hospital Discharge instructions* Instructions* Artis Yoder, DO - 05/24/2021 You were seen and evaluated in the emergency department with a complaint of left knee pain. Our evaluation showed no acute abnormalities requiring emergent intervention nor admission to the hospital.Please follow-up with your primary care physician. Call for an appointment to be seen within the next 1 to 2 days. If you do not have a primary care physician we have given you information on obtaining one. Please continue taking all prescribed medications. Please continue to socially distance, wear a mask, and wash your hands frequently. Please return to the emergency department immediately withany new or concerning symptoms including but not limited to any chest pain any fevers any inabilityto tolerate oral intake any severe abdominal pain any difficulty breathing any new rashes any sudden onset of any weakness severe fever unresponsive to home medications or anything else that is new or concerning to you. If you continue to have worsening of your current symptoms return to the emergency department immediately for reevaluation. * Attachments The following attachments cannot be sent through Care Everywhere. * Contusion ([place] Islander) * Knee Pain or Injury ([place]) * RICE: General Info ([place]) documented in [facility] Work Phone: 1(509) 752-401902-24-2022 Evaluation note* Encounter Date Diagnosis Assessment Notes Treatment Notes Treatment Clinical Notes Apr, Oral thrush (ICD-10 - B37.0) Use medication as directed. Change toothbrush. Follow up with PCP if symptoms do not improve with treatment [employer] Other 02-14-2022 Evaluation note* Encounter Date Diagnosis Assessment Notes Treatment Notes Treatment Clinical Notes Apr, Contact with and (suspected) exposure to other viral communicable diseases (ICD-10 - Z20.828) Apr, Strep pharyngitis (ICD-10 - J02.0) Drink plenty fluids, get plenty of rest. Scribed until gone. Take the prednisone as prescribed until gone. Off work until Saturday. Follow-up with your family physician if no improvement in 2 to 3 days. Apr, Other Additional time spent conducting pre-visit phone call, screening for symptoms, instructions on social distancing, application and removal of PPE, and cleaning of examination room, equipment and supplies was preformed. Patient education given for testing methodology and results. Patient care instructions given in writting by [facility] At Home document. [employer] Other 01-21-2022 Evaluation note* Encounter Date Diagnosis Assessment Notes Treatment Notes Treatment Clinical Notes Mar, Contact with and (suspected) exposure to other viral communicable diseases (ICD-10 - Z20.828) Discussed neg covid and flu test in office today. Even though test was negative, if direct exposure occurred, pt should still quarantine for 10 days from onset of sx. Supportive care as directed. Push fluids and rest. Pt is to take otc antipyretic prn for fever and aches. Pt is to take otc cough suppressant prn for cough. Pt is to be re-evaluated after tx if sx worsen or don't improve by pcp or UC. Discussed at length sx of resp distress that would indicate need for immediate ER tx. Sx include but not limited to worsening SOB, wheeze, dyspnea, difficulty swallowing or breathing, and chest pain. Go straight to ER for any of these sx. Pt is to call the office with any questions or concerns regarding dx and tx. Info sheet with info on tx at home, f/u, and quarantine instructions provided to pt today. Pt understood and agreed to tx plan. Mar, Other Additional time spent conducting pre-visit phone call, screening for symptoms, instructions on social distancing, application and removal of PPE, and cleaning of examination room, equipment and supplies was preformed. Patient education given for testing methodology and results. Patient care instructions given in writting by [facility] document. [employer] Other Evaluation + Plan note Future Appointments Appointment Date:04/23/2023 07:30:00 AM Scheduled Provider: [facility] Diagnosis Closed head injury, initial encounter- Primary documented in this encounter [employer] Work Phone: [email or web address] note* Diagnosis Tailbone injury, initial encounter- Primary documented in this encounter [employer] Phone: [email or web address] note* Diagnosis Contusion of left knee, initial encounter- Primary documented in this encounter [employer] Phone: [email or web address] note* Diagnosis Onset Date Resolution Status Diarrhea acute GERD (gastroesophageal reflux disease) acute Lower abdominal pain acute Nausea acute [facility] Work Phone: Evaluation note* Diagnosis Onset Date Resolution Status Diarrhea acute Dysphagia acute GERD (gastroesophageal reflux disease) acute Lower abdominal pain acute Nausea [facility] Work Phone: Evaluation note* Diagnosis Acute pain of left knee- Primary Status post arthroscopic reconstruction of anterior cruciate ligament of left knee using quadriceps tendon autograft [facility]* Diagnosis Acute pain of left knee- Primary Status post arthroscopic reconstruction of anterior cruciate ligament of left knee using quadriceps tendon autograft [facility]* Diagnosis Acute pain of left knee- Primary Status post arthroscopic reconstruction of anterior cruciate ligament of left knee using quadriceps tendon autograft documented [facility]* Diagnosis Subclinical hypothyroidism (CMS/HCC)- Primary Other specified acquired hypothyroidism 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CMS/HCC) Chronic lymphocytic thyroiditis Cigarette smoker Tobacco use disorder Non morbid obesity due to excess calories Postural orthostatic tachycardia syndrome (POTS) Abnormal bleeding in menstrual cycle [facility]* Diagnosis S/P reconstruction of ACL of left knee using bone-patellar tendon-bone autograft- Primary [facility]* Diagnosis Left knee injury, initial encounter- Primary [facility]* Diagnosis Missed menses , unspecified gestational age Encounter for supervision of normal first in first trimester Nausea/vomiting in Unspecified vomiting of , unspecified as to episode of care Cluster headache, not intractable, unspecified chronicity pattern documented [facility] encounter [facility]* Diagnosis First trimester state, incidental 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CMS/HCC) Chronic lymphocytic thyroiditis documented [facility] this encounter [facility]* Diagnosis Second trimester (HHS-HCC) state, incidental 15 weeks gestation of (HHS-HCC) Screening, , for anatomic survey ([facility]) Encounter for anatomic survey documented in this encounter [facility]* Diagnosis 19 weeks gestation of (HHS-HCC) Second trimester (HHS-HCC) state, incidental documented in [facility] encounter [facility]* Diagnosis Second trimester (HHS-HCC) state, incidental 23 weeks gestation of (HHS-HCC) Diabetes mellitus screening Screening for diabetes mellitus STD exposure Well woman exam with routine gynecological exam Routine gynecological examination Heart palpitations Palpitations documented in this encounter [facility] general Narrative - Reported* Type Description Date Medical History Hypothyroidism Medical History cardiovascular syncope Medical History chronic depression Surgical History left ovarian cyst Hospitalization History child [employer] Other Hospital course Narrative No data available for this section [facility]* Attachments The following attachments cannot be sent through Care Everywhere. * Head Injury: Closed: General Info ([place]) [facility] Phone: Hospital Discharge instructions* Attachments The following attachments cannot be sent through Care Everywhere. * Coccyx Injury ([place]) documented in this encounterProm[facility] HospitalPro[facility] Phone: Hospital Discharge instructions No data available for this section [facility] No data available for this section [facility] Summary Purpose Family History Relationship Condition Age at Onset Recorded Date/T swapnil Not Specified Malignant neoplasm of throat Unknown Not Specified Malignant neoplasm of breast Unknown family member Malignant neoplasm of breast Unknown Malignant neoplasm of stomach Unknown father Gastroesophageal reflux disease Unknown Not Specified Disorder of thyroid Unknown Advance Directives Advance Directive Response Recorded Date/ Time Advance Directives No July 25, 2023 2:11pm Chief Complaint and Reason for Visit Chief Complaint RLQ PAIN-NAUSEA Reason for Visit Diarrhea GERD (gastroesophageal reflux disease) Lower abdominal pain Nausea Chief Complaint RLQ PAIN-NAUSEA nausea, abdominal pain, gerd,diarrhea nausea, abdominal pain, gerd,diarrhea Reason for Visit Diarrhea Dysphagia GERD (gastroesophageal reflux disease) Lower abdominal pain Nausea Additional Source Comments INFORMATION SOURCE (unrecogn ized section and content) DATE CREATED AUTHOR 09/05/2017 [facility] DATE CREATED AUTHOR AUTHOR'S ORGANIZ ATION 09/05/2017 [facility] DATE CREATED AUTHOR AUTHOR'S ORGANIZ ATION 10/28/2019 [facility] DATE CREATED AUTHOR AUTHOR'S ORGANIZ ATION 05/26/2021 [facility] DATE CREATED AUTHOR AUTHOR'S ORGANIZ ATION 05/10/2022 [facility] DATE CREATED AUTHOR AUTHOR'S ORGANIZ ATION 07/24/2022 [facility] DATE CREATED AUTHOR AUTHOR'S ORGANIZ ATION 05/15/2023 [facility] DATE CREATED AUTHOR AUTHOR'S ORGANIZ ATION 09/11/2023 [facility] DATE CREATED AUTHOR AUTHOR'S ORGANIZ ATION 02/08/2024 [facility] DATE CREATED AUTHOR AUTHOR'S ORGANIZ ATION 10/04/2024 [facility] Specialists EPIC Reason for Visit (unrecogniz ed section and content) Reason Comments Head Injury headbutted repeated 10 times today around 1255 Headache Nausea Reason Comments Other Pt had a chair pulle d out from under her while at work. Pt fell onto hard ground. Pain in lower back. Reason Comments Knee Pain left knee, was kicke d by resident at [facility] at approx 1930 Specialty Diagnoses / Procedures Referred By Neo t Referred To Contact Physical Therapy Diagnoses Other specified postprocedural states Personal history of other diseases of the musculoskeletal system and connective tissue Procedures TN THERAPEUTIC PX 1/ AREAS EACH 15 MIN EXERCISES Myron Rojas, DO [address] [place], [place] Pepe Kirby, PT [address] [place] [address] Referral ID Status Reason Start Date Expiration Date V isits Requested Visits Authorized [id number] Authorized 09/10/2023 03/08/2024 99 99 Reason Comments Follow-up Reason Comments Pain Reason Comments Amenorrhea Reason Comments Routine Visit Reason Comments Routine Visit Scheduled Active and Recently Administ ered Medications (unrecognized section and content) Medication Order 09/17/2020 09/18/2020 09/19/2020 acetaminophen (TYLENOL) tablet 650 mg (COMPLETED) 650 mg, Oral, ONCE, On Sat09/19/20 at 1615, For 1 dose, Maximum dose of acetaminophen is 4000 mg from all sources in 24 hours. 1635 (Given - Provid er: Jennifer Samuels RN) Scheduled Medication Order 12/12/2020 12/13/2020 12/14/2020 tiZANidine (ZANAFLEX) tablet 4 mg 4 mg, Oral, ONCE, On Sat12/14/20 at 0245, For 1 dose 0253 (Not Given - Pr ovider: Jen Syed RN - Reason: Other - Comment: sent home with patient ok per Dr. Dominguez) PRN Medication Order 12/12/2020 12/13/2020 12/14/2020 ibuprofen (ADVIL;MOTRIN) tablet 600 mg 600 mg, Oral, EVERY 6 HOURS PRN, Pain Mild (1-3), Starting on Sat12/14/20 at 0251, Do not crush or chew. 0254 (Given - Provid er: Jen Syed, RICHAR) Scheduled Medication Order 05/22/2021 05/23/2021 05/24/2021 naproxen sodium (ANAPROX) tablet 550 mg (COMPLETED) 550 mg, Oral, ONCE, On Sat05/24/21 at 2045, For 1 dose 2052 (Given - Provid er: Angelica Epps RN) Ordered Prescriptions (unrec ognized section and content) Prescription Sig Dispensed Refills Start Date End Da te tiZANidine (ZANAFLEX) 4 MG tablet Take 1 tablet by mouth every 8 hours as needed (pain and muscle tension/cramps) 10 tablet 0 12/14/2020 ibuprofen (ADVIL;MOTRIN) 600 MG tablet Take 1 tablet by mouth 4 times daily as needed for Pain 30 tablet 0 12/14/2020 Prescription Sig Dispensed Refills Start Date End Da te naproxen (NAPROSYN) 500 MG tablet Take 1 tablet by mouth 2 times daily (with meals) 20 tablet 1 05/24/2021 Care Teams (unrecognized sec tion and content) [employer] Relationship Specialty Start Date End Date Rosalie Payne MD [address] [place] [address] PCP - General 05/24/21 [employer] Relationship Specialty Start Date End Date Rosalie Payne MD [address] [place] [address] PCP - General Family Medicine 07/24/22 Team Status: Active Member Role Status Dates Rosalie Payne MD Primary Care Provider Active Team Status: Inactive Member Role Status Dates Rosalie Payne MD Primary Care Provider Active Start: July 25, 2023 End: July 25, 2023 Marcelle Espinosa DO Attending Provider Active St art: July 25, 2023 End: July 25, 2023 Team Status: Inactive Member Role Status Dates Rosalie Payne MD Primary Care Provider Active Start: September 02, 2023 End: September 02, 2023 Marcelle Espinosa DO Attending Provider Active St art: September 02, 2023 End: September 02, 2023 Team Status: Active Member Role Status Dates Rosalie Payne MD Primary Care Provider Active Start: September 02, 2023 Marcelle Espinosa DO Attending Provider, Other Provider Active Start: September 02, 2023 [employer] Relationship Specialty Start Date End Date Rosalie Payne MD [address] [place] [address] (Fax) PCP - General Family Medicine 07/24/22 [employer] Relationship Specialty Start Date End Date Rosalie Payne MD [address] [place] [address] (Fax) PCP - General Family Medicine 07/24/22 [employer] Relationship Specialty Start Date End Date Rosalie Payne MD [address] [place] [address] (Fax) PCP - General Family Medicine 07/24/22 [employer] Relationship Specialty Start Date End Date Rosalie Payne MD [address] [place] [address] (Fax) PCP - General Family Medicine 07/24/22 [employer] Relationship Specialty Start Date End Date Rosalie Payne MD [address] [place] [phone] (Fax) PCP - General Family Medicine 07/24/22 [employer] Relationship Specialty Start Date End Date Rosalie Payne MD [address] [facility] [place] [phone] (Fax) PCP - General Family Medicine 07/24/22 [employer] Relationship Specialty Start Date End Date Rosalie Payne MD [address] [place] [address] (Fax) PCP - General Family Medicine 07/24/22 [employer] Relationship Specialty Start Date End Date Rosalie Payne MD [address] [place] [address] (Fax) PCP - General Family Medicine 07/24/22 [employer] Relationship Specialty Start Date End Date Rosalie Payne MD [address] [place] [address] (Fax) PCP - General Family Medicine 07/24/22 [employer] Relationship Specialty Start Date End Date Rosalie Payne MD [address] [place] [address] (Fax) PCP - General Family Medicine 07/24/22 [employer] Relationship Specialty Start Date End Date Rosalie Payne MD [address] [place] [address] (Fax) PCP - General Family Medicine 07/24/22 [employer] Relationship Specialty Start Date End Date Rosalie Payne MD [address] [place] [address] (Fax) PCP - General Family Medicine 07/24/22 Rosalie Payne MD [address] [place] [address] (Fax) PCP - [employer] 06/16/20 [employer] Relationship Specialty Start Date End Date Rosalie Payne MD [address] [place] [address] (Fax) PCP - General Family Medicine 07/24/22 Rosalie Payne MD [address] [place] [address] (Fax) PCP - [employer] 06/16/20 [employer] Relationship Specialty Start Date End Date Rosalie Payne MD [address] [place] [address] (Fax) PCP - General Family Medicine 07/24/22 Rosalie Payne MD [address] [place] [address] (Fax) PCP - [employer] 06/16/20 [employer] Relationship Specialty Start Date End Date Rosalie Payne MD [address] [place] [address] (Fax) PCP - General Family Medicine 07/24/22 Rosalie Payne MD [address] [place] [address] (Fax) PCP - [employer] 06/16/20 [employer] Relationship Specialty Start Date End Date Rosalie Payne MD [address] [place] [address] (Fax) PCP - General Family Medicine 07/24/22 Rosalie Payne MD [address] [place] [address] (Fax) PCP - [employer] 06/16/20 [employer] Relationship Specialty Start Date End Date Rosalie Payne MD [address] [place] [address] (Fax) PCP - General Family Medicine 07/24/22 Rosalie Payne MD [address] [place] [address] (Fax) PCP - [employer] 06/16/20 [employer] Relationship Specialty Start Date End Date Rosalie Payne MD [address] [place] [address] (Fax) PCP - General Family Medicine 07/24/22 Rosalie Payne MD [address] [place] [address] (Fax) [facility] 06/16/20 [employer] Relationship Specialty Start Date End Date Rosalie Payne MD [address] [place] [address] (Fax) [facility] 07/24/22 Rosalie Payne MD [address] [place] [address] (Fax) [facility] 06/16/20 [employer] Relationship Specialty Start Date End Date Rosalie Payne MD [address] [place] [address] (Fax) [facility] 07/24/22 Rosalie Payne MD [address] [place] [address] (Fax) [facility] 06/16/20 Goals (unrecognized section and content) Goals may be documented in a n alternate section FOR RECORDS PERTAINING TO PATIENTS WHO ARE OR HAVE BEEN ENROLLED IN A CHEMICAL DEPENDENCY/SUBSTANCEABUSE PROGRAM, SOME INFORMATION MAY BE OMITTED. This clinical summary was aggregated from multiple sources. Caution should be exercised in using it in the provision of clinical care. This summary normalizes information from multiple sources, and as a consequence, information in this document may materially change the coding, format and clinical context of patient data. In addition, data may be omitted in some cases. CLINICAL DECISIONS SHOULD BE BASED ON THE PRIMARY CLINICAL RECORDS. [facility]. provides no warranty or guarantee of the accuracy or completeness of information in this document.
== END 2024-10-28 18:39 | disposition home or self-care (01) ==
LOC: LAB 18:38
PROVIDERS: PCP Family Medicine; Visit Provider Nurse Practitioner Family
DX: Z01.419 Encounter for gynecological examination (general) (routine) without abnormal findings (principal)

== ENCOUNTER 2024-10-28 18:44 | Outpatient (REF) | payer BC, SELFPAY ==
--- OUTSIDE RECORDS SUMMARY | 2024-10-28 18:52 | XMS_ITS | CCD ---
Author Organization [facility] [employer] Care Team Providers Care Java Application Developer Name Role Phone BECERRIL, DAVID P Unavailable Unavailable BECERRIL, DAVID P Unavailable Unavailable BECERRIL, DAVID P Unavailable Unavailable BECERRIL, DAVID P Unavailable Unavailable BECERRIL, DAVID P Unavailable Unavailable BLANCA PABLO AM Unavailable Unavailable BLANCA PABLO AM Unavailable Unavailable SELF, REFERRED Unavailable Unavailable ROSALIE PAYNE Unavailable Unavailable Unavailable Primary Care Provider UnavailRosalie Muhammad MD Primary Care Provider [phone] DAVID DOMINGUEZ Attending Unavailable ARTIS YODER Attending [...] ble WILLIAM ., DR PATRICIO Consulting Unavailable Krisitne, Destinee Unavailable ROSALIE PAYNE Primary Care Physician Unavail able Rosalie Payne MD Primary Care Provider Pocanaly, Myron Washburn Admitting Unavailable PocosMyron Referring Unavailable Pocos, Myron Washburn Attending Unavailable Pocos, Myron Washburn Referring Unavailable Pocos, Myron Washburn Attending Unavailable Myron Rojas Admitting Unavailable MD Rosalie Payne Primary Care Provider DO Marcelle Espinosa Attending Provider Marcelle Espinosa Attending Unavailable Marcelle Espinosa Admitting Unavailable Rosalie Payne Primary Care Unavailable Rosalie Payne MD Primary Care Provider Rosalie Payne MD Primary Care Provider [phone] Rosalie Payne MD Unavailable DOC THOMAS Attending Unavailable LINDAPRETTY Attending Unavailable WILLIAMDOC Attending Unavailable TATTERSALL, JENNIFER Attending Unavailable POCOS, MYORN Washburn Referring Unavailable PEPE KIRBY Attending Unavailable [...] Latex (1 source) Latex Substance Allergy 1 [facility] Macrolides (antibiotic) (1 source) Azithromycin Drug Allergy 1 [facility] (20 sources) Azithromycin; Translations: [azithromycin] Drug Allergy 1 [facility] (10 sources) Latex; Translations: [Latex] Propensity to adverse reactions to drug 1 [facility] (1 source) Azithromycin Drug Allergy 0 [facility] Repository (1 source) natural latex rubber Drug allergy (disorder) [facility] Repository (2 sources) Banana Extract; Translations: [Banana] Drug Allergy Vomiting (disorder) [facility] (20 sources) Midodrine; Translations: [midodrine] Drug Allergy 3 Numbness [facility] (20 sources) Latex Allergy to substance 1 Rash [facility] (1 source) Azithromycin Drug Allergy 4 [facility] Repository (1 source) Latex Drug allergy (disorder) 4 [facility] Repository Medications Current Medications Medication Drug Class(es) Dates Sig (Normalized) Sig (Original) [id number] 200 actuat albuterol 0.09 mg/actuat metered dose [...] disintegrating tablet Indications: Nausea and vomiting during ([facility]) Take 1 tablet (4 mg) by mouth every 6 (six) hours if needed for nausea or vomiting 30 tablet 3 10/05/2024 11/04/2024 Active Start: 08-26-2024 End: 09-30-2024 take 1 tablet by mouth every six hours for nausea ondansetron ODT (Zofran-ODT) 4 MG disintegrating tablet Indications: Nausea and vomiting during ([facility]) Take 1 tablet (4 mg) by mouth [...] mg by mouth daily 0 Active Citalopram Bayard bromide Active clotrimazole 10 mg oral lozenge [...] bone disease and musculoskeletal deformities (20 sources) [place] Schlatter disease; 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 [...] UA Positive Negative - 4(70) +++ mg/dL [facility] Blood, UA Negative Negative - 50 Randall/mcL [facility] Clarity, UA Clear [facility] Color, UA Yellow [facility] Glucose, UA Positive Negative - 2000(110) ++++ mg/dL [facility] Interpretation and review of laboratory results Abnormal [facility] Ketones, UA Positive Negative - 160(16) ++++ mg/dL [facility] Leukocytes, UA Negative Negative - 500+++ Rick/mcL [facility] Nitrite, UA Negative Negative - Positive [facility] pH, UA 6 5 - 9 [facility] Protein, UA Positive Negative - 1999(20) ++++ mg/dL [facility] Spec Grav, UA 1.03 1 - 1.03 [facility] Urobilinogen, UA 0.2 0.2 - 12 mg/dL [facility] US OB CERVICAL LENGTHon 09-16 [place] [address] Ultrasound Report Signed Patient: ALETA CASTRO MR#: [id number] : 2000 Acct:[id number] Age/Sex: 24 / F ADM Date: 10/06/24 Loc: US Attending Dr: Doc Thomas D.O. Ordering Physician: Doc Thomas D.O. Date of Service: 10/06/24 Procedure(s): US OB cervical length Accession Number(s): [id number] cc: Doc Thomas D.O.; ROSALIE PAYNE [place] [id number] Patient Name: ALETA CASTRO MRN: [id number] date: 2000 Sex: F Assigned Patient Location: US Current Patient Location: US Accession/Order Number: [id number] Exam Date: 10/06/2024 14:25 Report Date: 10/06/2024 [...] Jr., D.O. 10/06/2024 2:26 PM Dictation Location: [place] [address] Electronically authenticated by: [id number] Y Date: 10/06/2024 14:26 Dictated By: Jermaine Nguyễn M.D. Signed By: 10/06/24 1428 DD/ 1426 TD/TT: Gun Perforator Loader: [facility] Radiology, Radiologevon rai MD - 10/06/2024 [place] [address] Ultrasound Report Signed Patient: ALETA CASTRO MR#: [id number] : 2000 Acct:[id number] Age/Sex: 24 / F ADM Date: 10/06/24 Loc: US Attending Dr: Doc Thomas D.O. Ordering Physician: Doc Thomas D.O. Date of Service: 10/06/24 Procedure(s): US OB cervical length Accession Number(s): [id number] cc: Doc Thomas D.O.; ROSALIE PAYNE [place] [address] Patient Name: ALETA CASTRO MRN: [facility]:[id number] date: 2000 Sex: F Assigned Patient Location: Current Patient Location: US Accession/Order Number: [id number] Exam Date: 10/06/2024 14:25 Report Date: 10/06/2024 [...] Jr., D.O. 10/06/2024 2:26 PM Dictation Location: [place] [address] Electronically authenticated by: [id number] Y Date: 10/06/2024 14:26 Dictated By: Jermaine Nguyễn M.D. Signed By: 10/06/24 1428 DD/ 142 TD/TT: Gun Perforator Loader: [facility] Radiology Study observation (narrative) [facility] US OB CERVICAL LENGTHOrdered By: Radiologist Radiology on 10-06-2024 [facility] Work Phone: US OB 14+ WEEKS [...] UA Negative Negative - 4(70) +++ mg/dL [facility] Blood, UA Negative Negative - 50 Randall/mcL [facility] Clarity, UA Clear [facility] Color, UA Yellow [facility] Glucose, UA Negative Negative - 1999(110) ++++ mg/dL [facility] Interpretation and review of laboratory results Normal [facility] Ketones, UA Negative Negative - 160(16) ++++ mg/dL [facility] Leukocytes, UA Negative Negative - 500+++ Rick/mcL [facility] Nitrite, UA Negative Negative - Positive [facility] pH, UA 6 5 - 9 [facility] Protein, UA Negative Negative - 1999(20) ++++ mg/dL [facility] Spec Grav, UA 1.005 1 - 1.03 [facility] Urobilinogen, UA 1.0 0.2 - 12 mg/dL [facility] ALL THYROID STIM HORMONEon 0 - TSH Qn 0.836 m[IU]/L [facility] macro (dipstick) panel (U)on 09-02-2024 Bilirubin, UA Negative Negative - 4(70) +++ mg/dL [facility] Blood, UA Negative Negative - 50 Randall/mcL [facility] Clarity, UA Clear [facility] Color, UA Yellow [facility] Glucose, UA Negative Negative - 1999(110) ++++ mg/dL [facility] Interpretation and review of laboratory results Normal [facility] Ketones, UA Negative Negative - 160(16) ++++ mg/dL [facility] Leukocytes, UA Negative Negative - 500+++ Rick/mcL [facility] Nitrite, UA Negative Negative - Positive [facility] pH, UA 6 5 - 9 [facility] Protein, UA Negative Negative - 1999(20) ++++ mg/dL [facility] Spec Grav, UA 1.025 1 - 1.03 [facility] Urobilinogen, UA 0.2 0.2 - 12 mg/dL [facility] ALL THYROID STIM HORMONEon 0 08-31-2024 TSH Qn 1.413 m[IU]/L [facility]inalysis macro (dipstick) panel (U)on 08-05-2024 Bilirubin, UA Negative Negative - 4(70) +++ mg/dL [facility] Blood, UA Negative Negative - 50 Randall/mcL [facility] Clarity, UA Clear [facility] Color, UA Yellow [facility] Glucose, UA Negative Negative - 1999(110) ++++ mg/dL [facility] Interpretation and review of laboratory results Abnormal [facility] Ketones, UA Positive Negative - 160(16) ++++ mg/dL [facility] Comment on above: 40 Leukocytes, UA Trace Negative - 500+++ Rick/mcL [facility] Nitrite, UA Negative Negative - Positive [facility] pH, UA 6.5 5 - 9 [facility] Protein, UA Negative Negative - 1999(20) ++++ mg/dL [facility] Spec Grav, UA 1.025 1 - 1.03 [facility] Urobilinogen, UA 1.0 0.2 - 12 mg/dL [facility] BOX TESTon 07-18-2024 BOX TEST SENT OUT [facility] BOX1 [facility] BOX2 07/18/24 [facility] TB DRUG SCREEN RAPID (URINE )on 07-18-2024 AMPHETAMINE SCREEN URINE Negative NEGATIVE [facility] BARBITURATES SCREEN URINE Negative NEGATIVE [facility] BENZODIAZEPINES SCREEN URINE Negative NEGATIVE [facility] BUPRENORPHINE SCREEN URINE Negative NEGATIVE [facility] Comment on above: DRUG CLASS TEST [...] 300 ng/mL CANNABINOID SCREEN URINE Negative NEGATIVE [facility] COCAINE SCREEN URINE Negative NEGATIVE [facility] METHADONE SCREEN URINE Negative NEGATIVE [facility] METHAMPHETAMINES SCREEN URINE Negative NEGATIVE [facility] OPIATE SCREEN URINE Negative NEGATIVE [facility] OXYCODONE SCREEN URINE Negative NEGATIVE [facility] PHENCYCLIDINE SCREEN URINE Negative NEGATIVE [facility] TRICYCLIC ANTIDEPRESSANT URINE Negative NEGATIVE [facility] HCG ( test) Ql (U)o n 07-16-2024 Interpretation and review of laboratory results Abnormal [facility] Preg Test, Ur Positive Negative [facility] US OB TRANSVAGINALon [...] 8 weeks 5 days (+/- 5 days). KRIK by today's ultrasound is 02/20/2025. 2. Normal color Doppler evaluation of the bilateral ovaries. Interpreted by: Electronically signed by REZA BOATENG II, MD, PHD at 19-Jul-2024 08:55:15 PM [facility] Normal Not Available Comment on above: Order Comment: US OB TRANSVAGINAL No LMP recorded. Urinalysis macro (dipstick) panel (U)on 07-16-2024 Bilirubin, UA Negative Negative - 4(70) +++ mg/dL [facility] Blood, UA Negative Negative - 50 Randall/mcL [facility] Clarity, UA Clear [facility] Color, UA Yellow [facility] Glucose, UA Negative Negative - 2000(110) ++++ mg/dL [facility] Interpretation and review of laboratory results Normal [facility] Ketones, UA Negative Negative - 160(16) ++++ mg/dL [facility] Leukocytes, UA Negative Negative - 500+++ Rick/mcL [facility] Nitrite, UA Negative Negative - Positive [facility] pH, UA 6.5 5 - 9 [facility] Protein, UA Negative Negative - 2000(20) ++++ mg/dL [facility] Spec Grav, UA 1.02 1 - 1.03 [facility] Urobilinogen, UA 1.0 0.2 - 12 mg/dL [facility] CBC W Auto Differential pane l (Bld)on 02-21-2024 Band form neutrophils (Bld) [#/Vol] CANCELED [facility] Comment on above: Result canceled by t he ancillary. Band form neutrophils/100 WBC (Bld) CANCELED % [facility] Comment on above: Result canceled by t he ancillary. Basophils (Bld) [#/Vol] 19 10*3/uL [facility] Basophils/100 WBC (Bld) 0.4 % [facility] Blasts (Bld) [#/Vol] CANCELED 0 cells/uL [facility] Comment on above: Result canceled by t he ancillary. Blasts/100 WBC (Bld) CANCELED % [facility] Comment on above: Result canceled by t he ancillary. Eosinophils (Bld) [#/Vol] 91 10*3/uL [facility] Eosinophils/100 WBC (Bld) 1.9 % [facility] Erythrocyte distribution width (RBC) [Ratio] 12.5 % 11.0 - 15.0 % [facility] Hematocrit (Bld) [Volume fraction] 38.9 % 35.0 - 45.0 % [facility] Hemoglobin (Bld) [Mass/Vol] 12.8 g/dL 11.7 - 15.5 g/dL [facility] Lymphocytes (Bld) [#/Vol] 1282 10*3/uL [facility] Lymphocytes/100 WBC (Bld) 26.7 % [facility] MCH (RBC) [Entitic mass] 30.6 pg 27.0 - 33.0 pg [facility] MCHC (RBC) [Mass/Vol] 32.9 g/dL 32.0 - 36.0 g/dL [facility] Comment on above: For adults, a [...] he ancillary. WBC (Bld) [#/Vol] 4.8 10*3/uL [facility] Iron and Iron binding capaci ty panelon 02-21-2024 Iron [Mass/Vol] 101 ug/dL [facility] Iron binding capacity [Mass/Vol] 340 [facility] Iron saturation [Mass fraction] 30 [facility] Laboratory - Chemistry and C hemistry - challengeon 02-21-2024 Albumin [Mass/Vol] 4.8 g/dL 3.6 - 5.1 g/dL [facility] Albumin/Globulin [Mass ratio] 1.8 {ratio} [facility] ALP [Catalytic activity/Vol] 65 U/L 31 - 125 U/L [facility] ALT [Catalytic activity/Vol] 16 U/L 6 - 29 U/L [facility] AST [Catalytic activity/Vol] 14 U/L 10 - 30 U/L [facility] Bilirubin [Mass/Vol] 0.6 mg/dL 0.2 - 1 .2 mg/dL [facility] Calcium [Mass/Vol] 9.3 mg/dL 8.6 - 10. 2 mg/dL [facility] Chloride [Moles/Vol] 107 mmol/L 98 - 11 0 mmol/L [facility] CO2 [Moles/Vol] 24 mmol/L 20 - 32 mmol/L [facility] Cortisol [Mass/Vol] 14.3 ug/dL mcg/dL [facility] Comment on above: Reference Range: For 8 a.m.(7-9 a.m.) Specimen: 4.0-22.0 Reference Range: For 4 p.m.(3-5 p.m.) Specimen: 3.0-17.0 * Please interpret above results accordingly * Creatinine [Mass/Vol] 0.71 mg/dL 0.50 - 0.96 mg/dL [facility] GFR/1.73 sq M.predicted among non-blacks MDRD (S/P/Bld) [Vol rate/Area] 122 mL/min/{1.73_m2} > OR = 60 mL/min/1.73m 2 [facility] Globulin (S) [Mass/Vol] 2.6 g/dL [facility] Glucose [Mass/Vol] 95 mg/dL 65 - 99 mg/dL [facility] Comment on above: Fasting reference interval Potassium [Moles/Vol] 4.2 mmol/L 3.5 - 5.3 mmol/L [facility] Protein [Mass/Vol] 7.4 g/dL 6.1 - 8.1 g/dL [facility] Sodium [Moles/Vol] 139 mmol/L 135 - 146 mmol/L [facility] Urea nitrogen [Mass/Vol] 16 mg/dL 7 - 25 mg/dL [facility] Urea nitrogen/Creatinine [Mass ratio] SEE NOTE: [facility] Comment on above: Not Reported: BUN an d Creatinine are within reference range. Laboratory - Serology - non- microon 02-21-2024 Thyroglobulin Ab Qn 153 [IU]/mL High < or = 1 IU/mL [facility] TPO Ab Qn 27 [IU]/mL High NINF [facility] No Panel Informationon 02-20 Interpretation and review of laboratory results Abnormal [facility] Performing Organizat ion Information Site ID: QTW Name: [facility] Address: [address] [place] [id number] Director: Urvashi Gtz [facility] Performing Organizat ion Information Site ID: QPT Name: [facility] Address: [address] [place] [address], [address] [place] [address] Director: Yonis Beck MD [facility] T3, [facility] 02-05-2024 Free T3 [Mass/Vol] 3.6 pg/mL Normal 2.3-4.2 [facility] Comment on above: Performed By: #### 8 17, [id number], 869 #### [facility] [address], [address] [place] [address] Lay Out Former: Yonis Beck MD T4, FREE 02-05-2024 Free T4 [Mass/Vol] 1.1 ng/dL Normal 0.8-1.8 [facility] Comment on above: Order Comment: FASTI NG:NO FASTING: NO Performed By: #### 8 83, [address], 406 #### [facility] [address], [address] [place] [address] Lay Out Former: Yonis Beck MD TSHon 02-05-2024 TSH Qn 1.98 m[IU]/L Normal [facility] Comment on above: Result Comment: Refe rence Range > or = 20 Years 0.40-4.50 Ranges First trimester 0.26-2.66 Second trimester 0.55-2.73 Third trimester 0.43-2.91 Performed By: #### 8 99, 28973, 866 #### [facility] [address], [address] [place] [address] Lay Out Former: Yonis Beck MD MR KNEE LEFT WO [...] 09-02-2023 HCG ( test) Ql (U) Negative [facility] HCG,Urineon 09-02-2023 Beta HCG ( test) Ql (U) Negative Normal [facility] Comment on above: Result Comment: PERF ORMED BY: [place] [address] PATHOLOGIST SUPERVISOR THROWING DEPARTMENT RAYMOND SUERO M.D. Performed By: #### U HCG #### [address] 09-02-2023 L Specimen: [id number] Received: 09/03/23 Status: SOUT Req Num: [id number] Spec Type: Surgical Subm Dr: Marcelle Espinosa [...] Location Account Attending Physician Aleta Castro / [id number] Marcelle Espinosa DO SPEC NUM: [id number] RECD: 09/03/23 STATUS: FRANKLYN GONZALES NUM: [id number] MIRIAM: 09/02/23- SUBM DR: Marcelle Espinosa DO ENTERED: 09/03/23 [facility] DR: SPEC TYPE: Surgical DEPT: S [...] mild squamous acanthosis and occasionally associated Specimen: [id number] Received: 09/03/23 Status: FRANKLYN Gonzales Num: [id number] Spec Type: Surgical Subm Dr: Marcelle Espinosa DO Tissues: A Small Intestine - Biopsy/Polyp (SMALL BOWEL BX) B GASTRIC FOR HP (GASTRIC HP) C Esophagus Biopsy (DISTAL ESOPHAGUS) D Esophagus Biopsy (PROXIMAL ESOPHAGUS) E Colon Biopsy (RANDOM RT COLON) F Colon Biopsy (RANDOM LT COLON) Procedures: , Gross/Micro L4/6, H PYLORI, IHC First AB Patient: Aleta Castro [id number] (Continued) Specimen: [id number] Received: 09/03/23 (Continued) Pathological Diagnosis (Continued) Signed (signature on file) Heather Villegas MD 09/05/23 1417 Specimen: [id number] Received: 09/03/23 Status: FRANKLYN Gonzales Num: [id number] Spec Type: Surgical Subm Dr: Marcelle Espinosa DO Tissues: A Small Intestine - Biopsy/Polyp (SMALL BOWEL BX) B GASTRIC FOR HP (GASTRIC HP) C Esophagus Biopsy (DISTAL ESOPHAGUS) D Esophagus Biopsy (PROXIMAL ESOPHAGUS) E Colon Biopsy (RANDOM RT COLON) F Colon Biopsy (RANDOM LT COLON) Procedures: , Gross/Micro L46, H PYLORI, IHC First AB Patient: MatthewAleta N [id number] (Continued) Specimen: [id number] Received: 09/03/23 (Continued) Pathological Diagnosis (Continued) lymphocytic [...] entirely submitted (more content not included)... Normal [facility] Insurance Correspondence Off iceon 05-08-2023 Insurance Correspondence Office [id number] FF Normal [facility] IntraOperative Documentson 0 04-29-2023 IntraOperative Documents [id number] F [facility] Postoperative Documentson Postoperative Documents [id number]#1.00TIF F [facility] Main OR Intraoperative Recor don 04-25-2023 Main OR Intraoperative Record IntraOp Document Type FT Summary Primary Physician: Myron Rojas DO Finalized Date/Time: 04/25/23 09:04:33 Pt. Name: ALETA CASTRO/Sex: 2000 Female Med Rec #: [id number] Physician: Myron Rojas DO Financial #: [id number] Pt. Type: A Room/Bed: [place] [address] Admit/Disch: 04/23/23 06:25:15 - 04/23/23 14:50:00 Institution: [...] assist with the block. Patient's heartrate 89, [id number]% on room air. patient tolerated block well. [...] Haas Role Performed Anesthesiologist Surgeon - Primary Billing Typist - Primary Mechanic Driver Time In 04/23/23 08:50:00 04/23/23 09:15:00 04/23/23 08:50:00 Time Out 04/23/23 10:59:00 04/23/23 10:44:00 04/23/23 10:59:00 Procedure KNEE ARTHROSCOPY W/ ACL KNEE ARTHROSCOPY W/ ACL KNEE ARTHROSCOPY W/ ACL REPAIR(Left) REPAIR(Left) REPAIR(Left) Comments , anesthesia pathology supervisor Last Modified By: Souleymane RN, Lyle Comer RN, Lyle Comer RN, Lyle Haas 04/23/23 10:59:32 04/23/23 10:59:32 04/23/23 10:59:32 Entry 4 Entry 5 Entry 6 Case Attendee Regulo Rodgers Laura C Wilhelm CST, Benjamin Role Performed Staff - Other Scrub - Primary HEADSTART TEACHER/SA Time In 04/23/23 08:50:00 04/23/23 08:50:00 04/23/23 [...] RN, Ana Maria Bennett Kendall R, Blanca Uribe Wilhelm CST, Benjamin Time Out Complete 04/23/23 [...] Text: Implements (more content not included)... Normal [facility] Consent for Anesthesiaon Consent for Anesthesia [id number] IFF Normal [facility] Discharge Instructionson Discharge Instructions [id number] IFF Normal [facility] IntraOperative Documentson 0 04-24-2023 IntraOperative Documents [id number] IFF Normal [facility] Operative Reporton Operative Report SURGERY DATE: 2023 PADDING MACHINE OPERATOR: Garry Camacho CST PREOPERATIVE DIAGNOSIS: Left knee anterior cruciate ligament tear POSTOPERATIVE DIAGNOSIS: Left knee anterior cruciate ligament tear OPERATION: Left knee diagnostic operative arthroscopy with autograft xgqm-zecuaq-tyxd anterior cruciate ligament reconstruction with InternalBrace augmentation ANESTHESIA: General as well as regional block ANESTHESIOLOGIST: KARTHIKEYAN Peacock ESTIMATED BLOOD LOSS: 10 mL INTRAVENOUS FLUIDS: Please see the operative record SPECIMEN: None COMPLICATIONS: None IMPLANTS: Arthrex [id number]-ttyu Tightrope system with the button for the [...] The anterior cruciate ligament was reconstructed using kazm-[id number]-pgzc from patellar tendon autograft with this InternalBrace [...] by over reaming with a 10 mm barrel charrer helper. Excess bone debris is again removed. The [...] the femo (more content not included)... Normal [facility] Comment on above: Result Comment: Elec tronically Signed By: Myron Rojas DO\.br\Date and Time Signed: 04/24/23 07:15 EST Preoperative Documentson Preoperative Documents [id number] IFF [facility] Consent for Procedure/Surger yon 04-23-2023 Consent for Procedure/Surgery [id number]#1.00TIF F [facility] Consent for Treatmenton Consent for Treatment [id number]#1.00TIF F [facility] Discharge Instructionson Discharge Instructions ALETA CASTRO :2000 [...] been scheduled. Call for any problems. Where: [address] [place] [address] Octoshape (1) Medications What How Much When Instructions Next Dose New acetaminophen-oxycodone (Percocet 5 mg-325 mg oral tablet) 1 Tablets By Mouth As Directed 1-2 po Q4-6h prn pain Dx: S83.512D Duration: 7 days Pickup at [facility]/pharmacy #2340 New aspirin (Ecotrin 325 mg Tab-EC) 1 Tablets By Mouth Every day Pickup at [facility]/pharmacy #2343 Pharmacy Information [facility]/pharmacy #[id number]: [address] [place], [place] [phone] Allergies Banana (Throat tightness, Hives, Vomiting) Latex (Hives, Swelling) azithromycin (Hives) midodrine (Numbness) Education Materials [place], [place] [facility] DISCHARGE INSTRUCTIONS: ANTERIOR CRUCIATE [...] concerns. ___ Myron Rojas, DO [facility] [address] [place] [address] Reviewed: 06-23 Revised: 03/29 Common Emergency Awareness [...] your experie (more content not included)... Normal [facility] Comment on above: Result Comment: Elec tronically Signed By: Marcelo MCQUEEN, Shyla Acevedo\.br\Date and Time Signed: 04/23/23 10:58 EST H&P Updateon 04-23-2023 H&P Update [id number] 2060 [id number] F Normal [facility] Main OR PACU I Recordon Main OR PACU I Record PACU Phase I Document Type FT Summary Primary Physician: Myron Rojas DO Finalized Date/Time: 04/23/23 12:22:33 Pt. Name: ALETA CASTRO/Sex: 2000 Female Med Rec #: [id number] Physician: Myron Rojas DO Financial #: [id number] Pt. Type: A Room/Bed: 06/16 Admit/Disch: 04/23/23 [...] Signed By: Valencia Jimenez RN 04/23/23 12:22 [facility] Main OR Preoperative Recordo n 04-23-2023 Main OR Preoperative Record PreOp Document Type FT Summary Primary Physician: Myron Rojas DO Finalized Date/Time: 04/23/23 08:50:41 Pt. Name: ALETA CASTRO /Sex: 2000 Female Med Rec #: [id number] Physician: Myron Rojas DO Financial #: [id number] Pt. Type: A Room/Bed: [place] [address] Admit/Disch: 04/23/23 06:25:15 - Institution: Case Times [...] By: Lyle Comer RN 04/23/23 08:50 Normal [facility] Monitor Recordon 04-23-2023 Monitor Record [id number] 2019 [id number] FF [facility] Operative Reporton Operative Report Patient: AILEEN CASTRO [...] Using maximal sterile barrier technique per current [facility] guidelines including hand hygeine, Guidance (Ultrasound used [...] patient tolerated the procedure as expected. Normal [facility] Comment on above: Result Comment: Elec tronically Signed By: Cyrus Modi DO\.br\Date and Time Signed: 04/23/23 07:56 EST Patient Education - Texton 0 04-23-2023 Patient Education - Text [place], [place] [facility] DISCHARGE INSTRUCTIONS: ANTERIOR CRUCIATE [...] concerns. ___ Myron Rojas DO [facility] [address] [place] [address] Reviewed: 06-23 Revised: 03/29 Lorena [facility] Progress Note-Physicianon Progress Note-Physician Patient: ALETA CASTRO [...] Daily, # 21 tab(s), Refills(s) 0, Pharmacy: [facility]/pharmacy #[id number], 165, cm, 04/04/23 6:11:00 EST, Height/Length Dosing, 78, kg, 04/04/23 6:11:00 EST, Weight Dosing Percocet 5 mg-325 mg oral tablet: 1 tab(s), Oral, As Directed, 40 tab(s), Refill(s) 0, 1-2 po Q4-6h prn pain Dx: S83.512D Duration: 7 days, [facility]/pharmacy #[id number], 165, cm, 04/04/23 6:11:00 EST, Height/Length Dosing, 78, kg, 04/04/23 6:11:00 EST, Weight Dosing, Home Medications (2) Active Ecotrin 325 mg Tab-EC 325 mg = 1 tab(s), Oral, Daily Percocet 5 mg-325 mg oral tablet 1 tab(s), Oral, As Directed Problem list: All Problems H/O: hypothyroidism / SNOMED CT 284824759 / Confirmed POTS (postural orthostatic tachycardia syndrome) / SNOMED CT 1889112617 / Confirmed Physical Examination Vital Signs 04/23/2023 [...] Pressure 1 (more content not included)... Normal [facility] Comment on above: Result Comment: Elec tronically Signed By: Cyrus Modi DO\.br\Date and Time Signed: 04/23/23 11:06 EST Progress Note-Physician Patient: ALETA CASTRO Age: 22 years Sex: Female : 2000 Associated Diagnoses: None Author: Myron Rojas DO Postoperative Information Procedure: L knee scope, ACL recon Preoperative Diagnosis: L ACL tear. Postoperative Diagnosis: same. Performed by: daniel. Mechanic Driver: Roby Camacho. Specimens Removed: none. Prosthesis: Arthrex. . Estimated Blood Loss: 10 ml. Complications: None. Anesthesia type: General, block. Normal [facility] Comment on above: Result Comment: Elec tronically [...] Daily, # 21 tab(s), Refills(s) 0, Pharmacy: [facility]/pharmacy #[id number], 165, cm, 04/04/23 6:11:00 EST, Height/Length [...] All Problems H/O: hypothyroidism / SNOMED CT 597137612 / Confirmed POTS (postural orthostatic tachycardia syndrome) / SNOMED CT 3702014507 / Confirmed, Active Problems (2) H/O: hypothyroidism POTS (postural orthostatic tachycardia syndrome) Histories Past Medical History: No active or resolved past medical history items have been selected or recorded. Family History: No family history items have been selected or recorded. Procedure history: Laparoscopic left ovarian R/o ([id number]). Ovarian cyst removal ([id number]). Social History Social & Psychosocial Habits Alcohol [...] U beta hCG Ql Negative . Plan [place] [employer] Anesthesiologists (ASA) physical status classification: Class II. Anesthetic Preoperative Plan: Anesthesia General. Regional Adductor Canal Block Left. Normal [facility] Comment on above: Result Comment: Elec tronically Signed By: [facility] ()Cyrus.br\Date and Time Signed: 04/23/23 07:41 EST U BetaHcg Qualon 04-23-2023 HCG.beta subunit (U) [Moles/Vol] Negative Normal [facility] Comment on above: Performed By: #### 2 [id number] ####[facility] [address] [place] [address] Consent for Procedure/Surger yon 04-16-2023 Consent for Procedure/Surgery [id number]#[id number] F Normal [facility] CBC w/ Auto Diffon 4 Basophil Absolute 0.0 E9/L Normal 0.0-0.2 [facility] Comment on above: Performed By: #### 2 [id number] ####[facility] [address] [place] [address] Basophils/100 WBC (Bld) 0.4 % Normal 0.0-2.0 [facility] Comment on above: Performed By: #### 2 358467 ####[facility] [address] [place] [address] Eos Absolute 0.1 E9/L Normal 0.0-0.5 [facility] Comment on above: Performed By: #### 2 743635 ####[address] [address] Eosinophils/100 WBC (Bld) 1.0 % Normal 0.0-8.0 [facility] Comment on above: Performed By: #### 2 473618 ####[address] [address] Erythrocyte distribution width (RBC) [Ratio] 12.6 % Normal 10.9-14.2 [facility] Comment on above: Performed By: #### 2 050285 ####[facility] [address] [place] [address] Hematocrit (Bld) [Volume fraction] 39.0 % Normal 34.0-46.0 [facility] Comment on above: Performed By: #### 2 251285 ####[facility] [address] [place] [address] Hemoglobin (Bld) [Mass/Vol] 13.1 g/dL Normal 12.0-16.0 [facility] Comment on above: Performed By: #### 2 167358 ####[facility] [address] [place] [address] Lymph Absolute 1.4 E9/L Normal 1.0-4.0 [facility] Comment on above: Performed By: #### 2 650170 ####[address] [address] Lymphocytes/100 WBC (Bld) 22.2 % Normal 14.0-50.0 [facility] Comment on above: Performed By: #### 2 725994 ####[address] [address] MCH (RBC) [Entitic mass] 30.6 pg Normal 27.0-34.0 [facility] Comment on above: Performed By: #### 2 369676 ####[address] [address] MCHC (RBC) [Mass/Vol] 33.7 g/dL Normal 31.4-36.0 [facility] Comment on above: Performed By: #### 2 234021 ####[address] [address] MCV (RBC) [Entitic vol] 91.0 fL Normal 80.0-100.0 [facility] Comment on above: Performed By: #### 2 316338 ####[address] [address] Irwin Absolute 0.4 E9/L Normal 0.2-1.0 [facility] Comment on above: Performed By: #### 2 191016 ####[address] [address] Monocytes/100 WBC (Bld) 5.6 % Normal 4.0-14.0 [facility] Comment on above: Performed By: #### 2 863630 ####[address] [address] Neutro Absolute 4.6 E9/L Normal 2.0-7.5 [facility] Comment on above: Performed By: #### 2 182121 ####[address] [address] Neutro Auto 70.8 % Normal 36.0-75.0 [facility] Comment on above: Performed By: #### 2 204338 ####[facility] [address] [place] [address] Platelet 312.0 E9/L Normal 150.0-500.0 [facility] Comment on above: Performed By: #### 2 714930 ####[facility] [address] [place] [address] Platelet mean volume (Bld) [Entitic vol] 7.7 fL Normal 6.4-10.8 [facility] Comment on above: Performed By: #### 2 630778 ####[facility] [address] [place] [address] RBC 4.3 E12/L Normal 4.3-5.9 [facility] Comment on above: Performed By: #### 2 113310 ####[facility] [address] [place] [address] WBC 6.5 E9/L Normal 4.0-11.0 [facility] Comment on above: Performed By: #### 2 650491 ####[facility] [address] [place] [address] Consent for Treatmenton 03-18 Consent for Treatment [id number]#[id number] F Normal [facility] HEMATOLOGYOrdered By: SYSTEM SYSTEM on 04-03-2023 Basophil [...] Normal 80.0 - 100.0 fL Remisol Heme Irwin Absolute 0.4 E9/L Normal 0.2 - 1.0 [...] (COVID-19) RNA QUEENIE+probe Ql (Unsp spec) Negative [employer] Other COVID/FLU/RSV RT-PCR Negative [facility] Other Quick Strepon 04-01-2023 S. pyogenes Org specific cx Ql (Throat) Negative [employer] [facility] Other Quick Strep [employer] Other US Gallbladderon 07-23-2022 US Gallbladder Clinical [...] by Cornelius Hernandez on 07/23/2022 1043 Normal [facility] Specialist PAP ACOG PANEL 2: 21 to 29on 05-09-2022 . . Normal [facility] Comment on above: Performed By: #### 4 135525 #### [facility] [address] [place] [address] Dr. Yovanny Villegas Age Gdln ACOG Testing - Normal [facility] Comment on above: Performed By: #### 4 510442 #### [facility] [address] [address] [address] Yovanny Villegas DIAGNOSIS: Comment [facility] Comment on above: Result Comment: NEGA TIVE FOR INTRAEPITHELIAL LESION OR MALIGNANCY. Performed By: #### 4 070960 #### [facility] [address] [place] [address] Dr. Yovanny Villegas Methodology: Comment Normal [facility] Comment on above: Result Comment: This liquid based ThinPrep(R) pap test was screened with the use of an image guided system. Performed By: #### 4 194421 #### [facility] [address] [address] [address] Yovanny Villegas Note: Comment Normal [facility] Comment on above: Result Comment: The Pap smear is a screening test designed to aid in the detection of premalignant and malignant conditions of the uterine cervix. It is not a diagnostic procedure and should not be used as the sole means of detecting cervical cancer. Both false-positive and false-negative reports do occur. . Performed By: #### 4 [id number] #### [facility] [address] [place] [address] Dr. Yovanny Villegas Performed by: Comment Normal [facility] Comment on above: Result Comment: Yanira Navarrete, Semi Truck Driver (ASCP) Performed By: #### 4 790944 #### [facility] [address] [place] [address] Dr. Yovanny Villegas Reflex Criteria: Comment Normal [facility] Comment on above: Result Comment: The HPV DNA reflex criteria were not met with this specimen result therefore, no HPV testing was performed. . Performed By: #### 4 [id number] #### [facility] [address] [address] [address] Yovanny Villegas Specimen adequacy: Comment Normal [facility] Comment on above: Result Comment: Sati sfactory for evaluation. Endocervical and/or squamous metaplastic cells (endocervical component) are present. Performed By: #### 4 643659 #### [facility] [address] [place] [address] Dr. Yovanny Villegas CHLAMYDIA/GONOCOCCUS QUEENIE ( AB/URINE/PAPon 07-28-2021 Chlamydia trachomatis, QUEENIE Negative Normal Negative [facility] Comment on above: Performed By: #### C T/NGNA #### [facility] [address] [place] [address] Dr. Yovanny Villegas Neisseria gonorrhoeae, QUEENIE Negative Normal Negative [facility] Comment on above: Performed By: #### C T/NGNA #### [facility] [address] [place] [address] Dr. Yovanny Villegas VAGINITIS/VAGINOSIS DNA PROB Anders 07-27-2021 Gabi species Negative Normal Negative [facility] Comment on above: Performed By: #### V AGINT #### [facility] [address] [place] [address] Dr. Yovanny Villegas Gardnerella vaginalis Negative Normal Negative [facility] Comment on above: Performed By: #### V AGINT #### [facility] [address] [place] [address] Dr. Yovanny Villegas Trichomonas vaginalis Negative Normal Negative [facility] Comment on above: Performed By: #### V AGINT #### [facility] [address] [address] [address] Yovanny Villegas XR KNEE LEFT (3 [...] Deshaun Aguilar MD 05/24/21 Final result Normal [facility] No fracture or dislocation. [facility] EXAMINATION: THREE XRAY VIEWS OF THE LEFT KNEE 05/24/2021 8:48 pm COMPARISON: None. HISTORY: ORDERING SYSTEM PROVIDED HISTORY: pain eval occult bony injury TECHNOLOGIST PROVIDED HISTORY: pain eval occult bony injury FINDINGS: No fracture, dislocation, or focal osseous lesion is noted. No significant soft tissue abnormality seen. [facility] Deshaun Aguilar MD - 05/24/2021 EXAMINATION: THREE XRAY VIEWS OF THE LEFT KNEE 05/24/2021 8:48 pm COMPARISON: None. HISTORY: ORDERING SYSTEM PROVIDED HISTORY: pain eval occult bony injury TECHNOLOGIST PROVIDED HISTORY: pain eval occult bony injury FINDINGS: No fracture, dislocation, or focal osseous lesion is noted. No significant soft tissue abnormality seen. IMPRESSION: No fracture or dislocation. [employer] Phone: Radiology Study observation (narrative) [employer] Phone: XR KNEE LEFT (3 VIEWS)Ordere d By: Deshaun Aguilar on 05-24-2021 [employer] Phone: COVID Quick Testingon 2021 Result Negative [employer] [facility] Other Quick Strepon 05-01-2021 S. pyogenes Org specific cx Ql (Throat) Positive [employer] [facility] Other Quick Strep [employer] Other COVID Quick Testingon 2021 Result Negative [employer] [facility] Other Quick Fluon 04-07-2021 FLUAV Ab CF (S) [Titer] Negative [employer] [facility] Other FLUBV Ab CF (S) [Titer] Negative [employer] Other XR SACRUM COCCYX (MIN 2 VIEW S)on 12-14-2020 XR SACRUM COCCYX (MIN 2 VIEWS) EXAMINATION: THREE XRAY VIEWS OF THE SACRUM/COCCYX 12/14/2020 3:10 am COMPARISON: None. HISTORY: ORDERING SYSTEM PROVIDED HISTORY: fall at work - hit [id number] TECHNOLOGIST PROVIDED HISTORY: fall at work - hit [id number] FINDINGS: The sacroiliac joints are normally aligned. The visualized portions the pelvis are. There is no fracture of the sacrum or coccyx evident. IMPRESSION: No acute osseous abnormality of the sacrum or coccyx evident. Interpreted by: Loc Oswald MD Signed by: Loc Oswald MD 12/14/20 Final result Normal [facility] XR SACRUM COCCYX (MIN 2 VIEW S)Ordered By: David Dominguez on 12-14-2020 No acute osseous abnormality of the sacrum or coccyx evident. [employer] Phone: EXAMINATION: THREE X RAY VIEWS OF THE SACRUM/COCCYX 12/14/2020 3:10 am COMPARISON: None. HISTORY: ORDERING SYSTEM PROVIDED HISTORY: fall at work - hit [id number] TECHNOLOGIST PROVIDED HISTORY: fall at work - hit [id number] FINDINGS: The sacroiliac joints are normally aligned. The visualized portions the pelvis are. There is no fracture of the sacrum or coccyx evident. [employer] Phone: [facility]oc, Mhpn Incoming Radiant Results From [employer] - 12/14/2020 3:24 AM EDT EXAMINATION: THREE XRAY VIEWS OF THE SACRUM/COCCYX 12/14/2020 3:10 am COMPARISON: None. HISTORY: ORDERING SYSTEM PROVIDED HISTORY: fall at work - hit [id number] TECHNOLOGIST PROVIDED HISTORY: fall at work - hit [id number] FINDINGS: The sacroiliac joints are normally aligned. The visualized portions the pelvis are. There is no fracture of the sacrum or coccyx evident. IMPRESSION: No acute osseous abnormality of the sacrum or coccyx evident. [employer] Phone: [facility] [employer] Phone: CT HEAD WO CONTRASTon 2020 CT [...] Maira Cruz MD 09/19/20 Final result Normal [facility] CT Head WO ContrastOrdered B y: Luis Carlos Fragoso on 09-19-[address] examination of the brain. [facility] Phone: EXAMINATION: CT OF T HE HEAD [...] of the visualized skull or soft tissues. [employer] Phone: Cuauhtemoc, pn Incoming Radiant Results From [employer] - 09/19/2020 4:42 PM EDT EXAMINATION: CT [...] Unremarkable noncontrast CT examination of the brain. [facility] Phone: [employer] Phone: Coding Summaryon 10-27-2019 Coding Summary CODING DATE: 020 [facility] STATUS: Home PAYOR: [facility] ADMIT DX: REASON FOR VISIT DX: J02.9 [...] Ashley Pablo Date Saved: 10/27/2019 03:10 pm [facility] 2019 Novel Coronavirus (CoVI D-19), QUEENIE LCon 10-26-2019 SARS-CoV-2, QUEENIE (COVID-19) LC Not Detected Not Detected [facility] Comment on above: Order Comment: [id number] Result Comment: This test was developed and its performance characteristics determined by [employer] This test has not been FDA cleared [...] detected) result in this assay. Performed At: [facility] [address] [facility], [place] [id number] Ruba Washburn MD Ph:[phone] Performed By: #### 6 [id number] #### [facility] (DEFAULT) [address] [place] [address] Consent Formson 10-26-2019 Consent Forms [id number] TIFF Normal [facility] CNCOon 07-15-2017 CNCO Letter TextToll Free : [phone] Merged With [facility] [address] [place], [place] [address]Cajmh: [phone]: [facility] [place], [place] [address]Pzruu: [phone]: [facility] [address] [place], [place] [address]Xqgsr: [phone]: Steve Pablo M.D., Ronaldo Marquez M.D.David Becerril M.D.Papito Sood D.O..Myriam Chaudhari M.D.Deandre Montoya M.D. Matthew Huff M.D.Date: July 15, 2017Re: Aleta Elliott WHOM IT MAY CONCERN:She was seen in our office today.Sincerely,Katelin Cardona PSR(signed electronically to expedite mailing) Normal [facility] CNOVSPon 07-15-2017 CNOVSP Visit (SP) Office (HEMACL) [facility] ([id number]) 89 FDate Time Provider Department07/15/17 3:15 PM [...] well-hydrated,well nourishedNeuro: Gait normal.Collected: 05/15/17 1043Resulting lab: [facility]ATORYValue: (NOTE)Comment: Performing Pathologist: Jo-Ann Sesay [...] list. no changes .Referring Provider: DAVID BECERRIL [[id number]]Allergies As of Date: 07/15/2017(No Known Allergies)Date Reviewed: [...] by DAVID BECERRIL MD on 07/17/17 Normal [facility] PROGRESSon 07-15-2017 PROGRESS HNO ID: [id number]: David LylessService: (none)Author Type: PhysicianType: Progress NotesFiled: [...] well nourishedNeuro: Gait normal.Collected: 05/15/17 1043Resulting lab: [facility]ATORYValue: (NOTE)Comment: Performing Pathologist: Jo-Ann Sesay [...] could consider further testingAljarred Becerril MD Normal [facility] Platelet Func Scrnon 018 COL/ADP Cartridge 85 CT (sec) Normal <118 [facility] Comment on above: Result Comment: Resu lts are reported as Closure Time (CT) in seconds. Performed By: #### P LTSCP ####[facility] [place], [place] [phone] COL/EPI Cartridge 105 CT (sec) Normal <199 [facility] Comment on above: Result Comment: Resu lts are reported as Closure Time (CT) in seconds. Performed By: #### P LTSCP ####[facility] [address], [place] [phone] Plt Func Scr Interp (NOTE) Normal [facility] Comment on above: Result Comment: Perf orming Pathologist: J-oAnn Sesay M.D., Ph.D.The closure times (platelet adhesion [...] bleeding disorder. Performed By: #### P LTSCP ####[facility], [place] [phone] Remote CBCDIF (for [facility] use o nly)on 05-15-2017 Abs Baso <0.03 Normal <0.11 [facility] Comment on above: Performed By: #### R CBCDF ####[place] [address], [place] [phone] Abs Irwin 0.53 k/uL Normal <0.87 [facility] Comment on above: Performed By: #### R CBCDF ####[place] [address] [phone] Abs Neut 2.59 k/uL Normal 1.45-7.50 [facility] Comment on above: Performed By: #### R CBCDF ####[place] [address], [place] [phone] Basophils/100 WBC Auto (Bld) 0.4 % Normal [facility] Comment on above: Performed By: #### R CBCDF ####[place] [address] [phone] DTYPE Auto Diff Normal [facility] Comment on above: Performed By: #### R CBCDF ####[place] [address] [phone] Eosinophils 0.07 10*3/uL Normal <0.46 [facility] Comment on above: Performed By: #### R CBCDF ####[place] [address] [phone] Eosinophils/100 leukocytes 1.5 % Normal [facility] Comment on above: Performed By: #### R CBCDF ####[place] [address] [phone] Erythrocyte distribution width Auto Ratio (RBC) 12.2 % Normal 11.5-15.0 [facility] Comment on above: Performed By: #### R CBCDF ####[place] [address], [place] [phone] Erythrocytes (RBC) 4.15 10*6/uL Normal 3.90-5.[address] [facility] Comment on above: Performed By: #### R CBCDF ####[place] [address], [place] [phone] Erythrocytes (RBC) 0.0 /100 WBC Normal [address] [facility] Comment on above: Performed By: #### R CBCDF ####[place] [address], [place] [phone] Erythrocytes (RBC) 10*6/uL Normal <0.01 [facility] Comment on above: Performed By: #### R CBCDF ####[place] [address], [place] [phone] Hematocrit (HCT) 39.4 % Normal 36.0-46.0 [facility] Comment on above: Performed By: #### R CBCDF ####[place] [address], [place] [phone] Hemoglobin mass conc (Bld) 12.8 g/dL Normal 11.5-15.5 [facility] Comment on above: Performed By: #### R CBCDF ####[place] [address], [place] [phone] Lymphocytes 1.37 10*3/uL Normal 1.00-4.00 [facility] Comment on above: Performed By: #### R CBCDF ####[place] [address], [place] [phone] Lymphocytes/100 leukocytes 29.9 % Normal [facility] Comment on above: Performed By: #### R CBCDF ####[place] [address], [place] [phone] MCH 30.8 pG Normal 26.0-34.0 [facility] Comment on above: Performed By: #### R CBCDF ####[facility] [address], [place] [phone] MCHC mass conc (RBC) 32.5 g/dL Normal 30.5-36.[address] [facility] Comment on above: Performed By: #### R CBCDF ####[facility], [place] [phone] MCV 94.9 fL Normal 80.0-100.0 [facility] Comment on above: Performed By: #### R CBCDF ####[place] [address], [place] [phone] Monocytes/100 leukocytes 11.6 % Normal [facility] Comment on above: Performed By: #### R CBCDF ####[place] [address], [place] [phone] Neutrophils/100 WBC Auto (Bld) 56.6 % Normal [facility] Comment on above: Performed By: #### R CBCDF ####[facility], [place] [phone] Platelet mean volume (PMV) 10.2 fL Normal 9.0-12.7 [facility] Comment on above: Performed By: #### R CBCDF ####[facility], [place] [phone] Platelets 229 10*3/uL Normal 150-400 [facility] Comment on above: Performed By: #### R CBCDF ####[facility], [place] [phone] WBC (Leukocytes) 4.58 10*3/uL Normal 3.70-11.00 [facility] Comment on above: Performed By: #### R CBCDF ####[facility] [address], [place] [phone] CNCOon 04-29-2017 CNCO Letter TextToll Free : [phone] Merged With [facility] - [address] [place], [place] [address]Qzyvi: [phone]: Merged With [facility] - [address] [place], [place] [address]Mpdxa: [phone]: [facility] [address] [place], [place] [address]Yqzly: [phone]: Steve Pablo M.D., Ronaldo Marquez M.D.David Becerril M.D.Papito Sood D.O..Carin Hoover M.D. FACROSaju A. Rajan, M.D.Date: April 29, 2017Re: Aleta Elliott WHOM IT MAY CONCERN:She was seen in our office today.Sincerely,Karly Pizarro Psr(signed electronically to expedite mailing) Normal [facility] CNOVSPon 04-29-2017 CNOVS Visit (SP) Office (HEMACL) SYEDA GARAY JANESSA ([id number]) 89 FDate Time Provider Department04/29/17 2:30 PM [...] patientand her mother at length. Would check [id number] at this time, further testingbased on results.1. 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 Would check [id number] at this time, furthertesting based on results.1. 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, choice of management likely to be influenced by history ofPOTSAlfred P MD Jone Normal [facility] Vital Signs Date Time Vital Sign Value Performing Clinician Facility 10-28-2024 14:39-0400 Body mass index (BMI) [Ratio] 28.49 kg/m2 Pretty ARELLANO Work Phone: [facility] 10-28-2024 14:39-0400 Body weight 75.3 kg Pretty ARELLANO Work Phone: [facility] 10-28-2024 14:39-0400 Diastolic blood pressure 80 mm[Hg] Pretty ARELLANO Work Phone: [facility] 10-28-2024 14:39-0400 Systolic blood pressure 130 mm[Hg] Pretty ARELLANO Work Phone: [facility] 09-30-2024 15:34-0400 Body mass index (BMI) [Ratio] 28.29 kg/m2 Doc William DO Work Phone: [facility] 09-30-2024 15:34-0400 Body weight 74.75 kg Doc William DO Work Phone: [facility] 09-30-2024 15:34-0400 Diastolic blood pressure 72 mm[Hg] Doc William DO Work Phone: [facility] 09-30-2024 15:34-0400 Systolic blood pressure 110 mm[Hg] Doc William DO Work Phone: [facility] 08-05-2024 14:27-0400 Body mass index (BMI) [Ratio] 30.21 kg/m2 Doc William DO Work Phone: [facility] 08-05-2024 14:27-0400 Body weight 79.83 kg Doc William DO Work Phone: [facility] 08-05-2024 14:27-0400 Diastolic blood pressure 76 mm[Hg] Doc William DO Work Phone: [facility] 08-05-2024 14:27-0400 Systolic blood pressure 110 mm[Hg] Doc William DO Work Phone: [facility] 02-26-2024 15:41-0500 Body height 162.6 cm Myron Pocos DO Work Phone: [facility] 02-26-2024 15:41-0500 Body mass index (BMI) [Ratio] 30.21 kg/m2 Myron Pocos DO Work Phone: [facility] 02-26-2024 15:41-0500 Body weight 79.83 kg Myron Pocos DO Work Phone: [facility] 02-19-2024 15:26-0500 Body height 162.6 cm Rosalie Payne MD Work Phone: [facility] 02-19-2024 15:26-0500 Body mass index (BMI) [Ratio] 30.21 kg/m2 Rosalie Payne MD Work Phone: [facility] 02-19-2024 15:26-0500 Body weight 79.83 kg Rosalie Payne MD Work Phone: [facility] 02-19-2024 15:26-0500 Heart rate 88 /min Rosalie Payne MD Work Phone: [facility] 02-19-2024 15:26-0500 SaO2% (BldA) [Mass fraction] 98 % Rosalie Payne MD Work Phone: [facility] 12-09-2023 08:00-0400 Body height 162.6 cm Kelvin Oneal DO Work Phone: [facility] 12-09-2023 08:00-0400 Body mass index (BMI) [Ratio] 30.9 kg/m2 Kelvin Oneal DO Work Phone: [facility] 12-09-2023 08:00-0400 Body weight 81.65 kg Kelvin Oneal DO Work Phone: [facility] 09-02-2023 14:25-0400 Diastolic blood pressure 73 mm[Hg] MD Rosalie Payne Work Phone: [facility] 09-02-2023 14:25-0400 Heart rate 80 /min MD Rosalie Payne Work Phone: [facility] 09-02-2023 14:25-0400 Respiratory rate 18 /min MD Rosalie Payne Work Phone: [facility] 09-02-2023 14:25-0400 SaO2% (BldA) [Mass fraction] 100 % MD Rosalie Payne Work Phone: [facility] 09-02-2023 14:25-0400 Systolic blood pressure 122 mm[Hg] MD Rosalie Payne Work Phone: [facility] 09-02-2023 11:31-0400 Body height 165.1 cm MD Rosalie Payne Work Phone: [facility] 09-02-2023 11:31-0400 Body temperature 98.4 [degF] MD Rosalie Payne Work Phone: [facility] 09-02-2023 11:31-0400 Body weight 77.11 kg MD Rosalie Payne Work Phone: [facility] 07-25-2023 14:21-0400 Body height 165.[address] [facility] 07-25-2023 14:21-0400 Body mass index (BMI) [Ratio] 28.3 kg/m2 [facility] 07-25-2023 14:21-0400 Body weight 77.[address] [facility] 07-25-2023 14:21-0400 Diastolic blood pressure 72 mm[Hg] [facility] 07-25-2023 14:21-0400 Heart rate 81 /min [facility] 07-25-2023 14:21-0400 Systolic blood pressure 111 mm[Hg] [facility] 04-03-2023 14:55-0500 Diastolic blood pressure 87 mm[Hg] Myron Pocos [facility] 04-03-2023 14:55-0500 Heart rate 105 /min Myron Pocos [facility] 04-03-2023 14:55-0500 Mean blood pressure 103 mm[Hg] Myron Pocos [facility] 04-03-2023 14:55-0500 Systolic blood pressure 136 mm[Hg] Myron Pocos [facility] 04-03-2023 14:53-0500 Heart rate 98 /min Myron Pocos [facility] 04-03-2023 14:53-0500 SaO2% (BldA) [Mass fraction] 99 % Myron Pocos [facility] 04-03-2023 14:53-0500 Diastolic blood pressure 96 mm[Hg] Myron Pocos [facility] 04-03-2023 14:53-0500 Mean blood pressure 112 mm[Hg] Myron Caroos [facility] 04-03-2023 14:53-0500 Systolic blood pressure 145 mm[Hg] Myron Caroos [facility] 04-03-2023 14:52-0500 Respiratory rate 16 /min Myron aCroos [facility] 04-01-2023 10:45-0500 Body height 165.1 cm Destinee Kristine Other [employer] Other 04-01-2023 10:45-0500 Body mass index (BMI) [Ratio] 28.29 kg/m2 Destinee Kristine Other [employer] Other 04-01-2023 10:45-0500 Body temperature 98.1 [degF] Destinee Kristine Other [employer] [facility] [employer] Other 04-01-2023 10:45-0500 Body weight 77.11 kg Destinee Kristine Other [employer] [facility] [employer] Other 04-01-2023 10:45-0500 Respiratory rate 18 /min Destinee Kristine Other [employer] Other 04-01-2023 10:45-0500 SaO2% (BldA) [Mass fraction] 99 % Destinee Kristine Other [employer] Other 08-21-2021 11:25-0400 Body height 165.1 cm Carlie Thomas Other [employer] Other 08-21-2021 11:25-0400 Body mass index (BMI) [Ratio] 27.12 kg/m2 Carlie Thomas Other [employer] Other 08-21-2021 11:25-0400 Body temperature 98.6 [degF] Carlie Thomas Other [employer] Other 08-21-2021 11:25-0400 Body weight 73.94 kg Carlie Thomas Other [employer] Other 08-21-2021 11:25-0400 Respiratory rate 18 /min Carlie Thomas Other [employer] Other 08-21-2021 11:25-0400 SaO2% (BldA) [Mass fraction] 97 % Carlie Thomas Other [employer] Other 05-24-2021 20:36-0500 Body temperature 97.7 [degF] Artis GeeYeettan DO Work Phone: [facility] 05-24-2021 20:36-0500 Diastolic blood pressure 81 mm[Hg] Artis GeeYeettan DO Work Phone: [facility] 05-24-2021 20:36-0500 Heart rate 101 /min Artis GeeYeettan DO Work Phone: [facility] 05-24-2021 20:36-0500 Respiratory rate 16 /min Artis GeeYeettan DO Work Phone: [facility] 05-24-2021 20:36-0500 SaO2% (BldA) [Mass fraction] 97 % Artis GeeYeettan DO Work Phone: [facility] 05-24-2021 20:36-0500 Systolic blood pressure 131 mm[Hg] Artis Grattan DO Work Phone: [facility] 05-11-2021 13:10-0500 Body height 165.1 cm Adriana Evangelista Other [employer] Other 05-11-2021 13:10-0500 Body mass index (BMI) [Ratio] 27.12 kg/m2 Adriana Evangelista Other [employer] Other 05-11-2021 13:10-0500 Body temperature 97.8 [degF] Adriana Evangelista Other [employer] Other 05-11-2021 13:10-0500 Body weight 73.94 kg Adriana Evangelista Other [employer] Other 05-11-2021 13:10-0500 Diastolic blood pressure 90 mm[Hg] Adriana Evangelista Other [employer] Other 05-11-2021 13:10-0500 Respiratory rate 18 /min Adriana Evangelista Other [employer] Other 05-11-2021 13:10-0500 SaO2% (BldA) [Mass fraction] 99 % Adriana Evangelista Other [employer] Other 05-11-2021 13:10-0500 Systolic blood pressure 129 mm[Hg] Adriana Evangelista Other [employer] Other 05-01-2021 11:40-0500 Body height 165.1 cm Carlie Thomas Other [employer] Other 05-01-2021 11:40-0500 Body mass index (BMI) [Ratio] 26.62 kg/m2 Carlie Thomas Other [employer] Other 05-01-2021 11:40-0500 Body temperature 98.6 [degF] Carlie Thomas Other [employer] Other 05-01-2021 11:40-0500 Body weight 72.58 kg Carlie Thomas Other [employer] Other 05-01-2021 11:40-0500 Respiratory rate 18 /min Carlie Thomas Other [employer] Other 05-01-2021 11:40-0500 SaO2% (BldA) [Mass fraction] 99 % Carlie Thomas Other [employer] Other 04-07-2021 12:00-0500 Body height 165.1 cm Sandeep Ramirez Other [employer] Other 04-07-2021 12:00-0500 Body mass index (BMI) [Ratio] 26.62 kg/m2 Sandeep Ramirez Other [employer] [facility] Other 04-07-2021 12:00-0500 Body temperature 97.6 [degF] Sandeep Ramirez Other [employer] [facility] Other 04-07-2021 12:00-0500 Body weight 72.58 kg Sandeep Ramirez Other [employer] [facility] [employer] Other 04-07-2021 12:00-0500 SaO2% (BldA) [Mass fraction] 98 % Sandeep Ramirez Other [employer] Other 12-13-2020 23:25-0400 Diastolic blood pressure 89 mm[Hg] David Dominguez MD Work Phone: [facility] Work Phone: 12-13-2020 23:25-0400 Systolic blood pressure 141 mm[Hg] David Dominguez MD Work Phone: [facility] Work Phone: 12-13-2020 23:23-0400 Body height 165.1 cm David Dominguez MD Work Phone: [facility] Work Phone: 12-13-2020 23:23-0400 Body mass index (BMI) [Ratio] 26.63 kg/m2 David Dominguez MD Work Phone: [facility] Work Phone: 12-13-2020 23:23-0400 Body temperature 98.29 [degF] David Dominguez MD Work Phone: [facility] Work Phone: 12-13-2020 23:23-0400 Body weight 72.58 kg David Dominguez MD Work Phone: [facility] Work Phone: 12-13-2020 23:23-0400 Heart rate 79 /min David Dominguez MD Work Phone: [facility] Work Phone: 12-13-2020 23:23-0400 Respiratory rate 14 /min David Dominguez MD Work Phone: [facility] Work Phone: 12-13-2020 23:23-0400 SaO2% (BldA) [Mass fraction] 99 % David Dominguez MD Work Phone: [facility] Work Phone: 09-19-2020 15:56-0400 Body temperature 98.6 [degF] [facility] Work Phone: 09-19-2020 15:56-0400 Diastolic blood pressure 90 mm[Hg] [facility] Work Phone: 09-19-2020 15:56-0400 Heart rate 103 /min [facility] Work Phone: 09-19-2020 15:56-0400 Respiratory rate 16 /min [facility] Phone: 09-19-2020 15:56-0400 SaO2% (BldA) [Mass fraction] 100 % [facility] Phone: 09-19-2020 15:56-0400 Systolic blood pressure 139 mm[Hg] [facility] Phone: Encounters Encounter Date Encounter Type Care Provider Facility Start: 10-28-2024 End: 10-28-2024 Patient encounter procedure Pretty ARELLANO Work Phone: [facility] Start: 10-28-2024 End: 10-28-2024 flow sheet Pretty ARELLANO Work Phone: [facility] Comment on above: Second trimester pre gnancy ([facility]); 23 weeks gestation of ([facility]); Diabetes mellitus screening; STD exposure; Well woman exam with routine gynecological exam; Heart palpitations Start: 10-28-2024 End: 10-28-2024 Bamboo flowsheet Pretty ARELLANO Work Phone: [facility] Start: 10-28-2024 End: 10-28-2024 Bamboo flowsheet Pretty ARELLANO Work Phone: [facility] [place] [facility] Start: 10-06-2024 End: 10-06-2024 Clinisync Result Encounter Doc William DO Work Phone: [facility] Department Unsolicited Start: 10-06-2024 End: 10-06-2024 Clinisync Result Encounter Doc William DO Work Phone: [facility] Unsolicited Start: 09-30-2024 End: 09-30-2024 flow sheet Doc William DO Work Phone: [facility] Comment on above: 19 weeks gestation o f ([facility]); Second trimester ([facility]) Start: 09-30-2024 End: 09-30-2024 ambulatory DOC WILLIAM Not Available Start: 09-28-2024 End: 09-28-2024 Clinisync Result Encounter Generic External Data Provider [facility] Unsolicited Start: 09-28-2024 End: 09-28-2024 Clinisync Result Encounter Generic External Data Provider [facility] External [facility] Unsolicited Start: 09-02-2024 End: 09-02-2024 flow sheet Pretty ARELLANO Work Phone: [facility] Comment on above: Second trimester pre gnancy ([facility]); 15 weeks gestation of ([facility]); Screening, , for anatomic survey ([facility]) Start: 09-02-2024 End: 09-02-2024 ambulatory PRETTY MCKEON [...] FM 100 Start: 12-27-2023 End: 12-27-2023 ambulatory Ppee J Lilo PT Work Phone: [facility] [...] Start: 12-24-2023 End: 12-24-2023 ambulatory Nereyda Vieira [employer]ICAL [employer] TECH INSTRUCTOR Work Phone: [facility] Comment on above: Acute pain of left k nee (Primary Dx); Status post arthroscopic reconstruction of anterior cruciate ligament of left knee using quadriceps tendon autograft Start: 12-24-2023 End: 12-24-2023 Bamboo flowsheet Nereyda Vieira MEDICAL LAB TECH INSTRUCTOR Work Phone: [facility] Start: 12-24-2023 End: 12-24-2023 Bamboo flowsheet Nereyda Vieira MEDICAL LAB TECH INSTRUCTOR Work Phone: [facility] Start: 12-17-2023 [...] Start: 12-03-2023 End: 12-03-2023 ambulatory Nereydaannita Vieira MEDICAL LAB TECH INSTRUCTOR Work Phone: [facility] Comment on above: Acute pain of left k nee (Primary Dx); Status post arthroscopic reconstruction of anterior cruciate ligament of left knee using quadriceps tendon autograft Start: 12-03-2023 End: 12-03-2023 Bamboo flowsheet Nereyda Vieira MEDICAL LAB TECH INSTRUCTOR Work Phone: [facility] Start: 12-03-2023 End: 12-03-2023 Bamboo flowsheet Nereydaannita Vieira MEDICAL LAB TECH INSTRUCTOR Work Phone: [facility] Start: 11-19-2023 End: 11-19-2023 ambulatory Jennifer Dozier MEDICAL LAB TECH INSTRUCTOR [facility] Comment on above: Acute pain of left k nee (Primary Dx); Status post arthroscopic reconstruction of anterior cruciate ligament of left knee using quadriceps tendon autograft Start: 11-19-2023 End: 11-19-2023 Bamboo flowsheet Jennifer Haletersall MEDICAL LAB TECH INSTRUCTOR [facility] Start: 11-19-2023 End: 11-19-2023 Bamboo flowsheet Jennifer Martinoall MEDICAL LAB TECH INSTRUCTOR [facility] Start: 11-12-2023 End: 11-12-2023 ambulatory Nereyda Vieira MEDICAL LAB TECH INSTRUCTOR Work Phone: [facility] Comment on above: Acute pain of left k nee (Primary Dx); Status post arthroscopic reconstruction of anterior cruciate ligament of left knee using quadriceps tendon autograft Start: 11-12-2023 End: 11-12-2023 Bamboo flowsheet Nereydaannita Vieira MEDICAL LAB TECH INSTRUCTOR Work Phone: [facility] Start: 11-12-2023 End: 11-12-2023 Bamboo flowsheet Nereyda Vieira MEDICAL LAB TECH INSTRUCTOR Work Phone: [facility] Start: 10-29-2023 [...] / Non-visit MD Hector Payne Work Phone: [facility] Work Phone: Start: 09-02-2023 End: 09-02-2023 Admission to same day surgery center MD Rosalie Payne Work Phone: [facility] Work Phone: Start: 09-02-2023 End: 09-02-2023 ambulatory MD Rosalie Payne Work Phone: [facility] Work Phone: Start: 07-25-2023 End: 07-25-2023 ambulatory [facility] Work Phone: Start: 07-25-2023 End: 07-25-2023 Patient encounter procedure [facility] Work Phone: Start: 04-23-2023 End: 04-23-2023 ambulatory Jc Pocos Facility:[facility] Start: 04-22-2023 Chart abstracting Pepe rowe PT Work Phone: [facility] Start: 04-03-2023 End: 04-04-2023 ambulatory Jc Vaniaanaly Facility:[facility] Start: 04-03-2023 End: 04-03-2023 Patient encounter procedure Myron Washburn [facility] Start: 04-01-2023 End: 04-01-2023 ambulatory Destinee Kristine Other [employer] Other Start: 04-01-2023 Office outpatient vi sit 15 minutes Destineegianfranco Carmona [facility] Start: 05-01-2022 End: 05-01-[address] DOC THOMAS . Facility: Start: 08-21-2021 End: 08-21-2021 ambulatory Carlie Thomas Other [employer] Other Start: 08-21-2021 Office outpatient vi sit 15 minutes Carlie Thomas [facility] Start: 07-26-2021 End: 07-26-[address] DOC THOMAS . Facility: Start: 05-24-2021 Emergency department patient visit ARTIS Pari [facility] Start: 05-24-2021 End: 05-24-2021 Emergency department patient visit Artis Yoder DO Work Phone: [facility] Comment on above: Contusion of left kn ee, initial encounter (Primary Dx) Start: 05-11-2021 End: 05-11-2021 ambulatory Adriana Evangelista Other [employer] Other Start: 05-11-2021 Office outpatient vi sit 15 minutes Adriana Evangelista [facility] Start: 05-01-2021 (URG) Urgent Care Visit Carlie quintanilla [facility] Start: 05-01-2021 End: 05-01-2021 ambulatory Carlie Thomas Other [employer] Other Start: 04-07-2021 End: 04-07-2021 ambulatory Sandeep Ramirez Other [facility] [employer] Other Start: 04-07-2021 Office outpatient vi sit 15 minutes Sandeep Ramirez [facility] Start: 12-14-2020 End: 12-14-2020 Emergency department patient visit DAVID DOMINGUEZ [facility] Start: 12-14-2020 End: 12-14-2020 Emergency department patient visit David Dominguez MD Work Phone: [facility] Comment on above: Tailbone injury, ini tial encounter (Primary Dx) Start: 09-19-2020 End: 09-19-2020 Emergency department patient visit [facility] Comment on above: Closed head injury, initial encounter (Primary Dx) Start: 07-15-2017 End: 07-18-2017 Ambulatory DAVID [facility] Start: 05-15-2017 End: 05-15-2017 Ambulatory DAVID [facility] Start: 04-30-2017 End: 04-30-2017 Ambulatory [facility] Start: 04-29-2017 End: 04-30-2017 Ambulatory [facility] Start: 03-13-2017 End: 03-14-2017 Ambulatory BLANCA PABLO Facility:[facility] Procedures Date Procedure Procedure Detail Performing [...] DO Work Phone: Start: 07-18-2024 BOX TEST Dco William DO Work Phone: Start: 07-18-2024 [facility] [...] knee using quadriceps tendon autograft Nereyda Vieira MEDICAL LAB TECH INSTRUCTOR Work Phone: History of reconstru ction of anterior cruciate ligament tear Status post arthroscopic reconstruction of anterior cruciate ligament of left knee using quadriceps tendon autograft Pepe Kirby PT Work Phone: History of reconstru ction of anterior cruciate ligament tear Status post arthroscopic reconstruction of anterior cruciate ligament of left knee using quadriceps tendon autograft Nereyda Vieira MEDICAL LAB TECH INSTRUCTOR Work Phone: History of reconstru ction of anterior cruciate ligament tear Status post arthroscopic reconstruction of anterior cruciate ligament of left knee using quadriceps tendon autograft Nereyda Vieira MEDICAL LAB TECH INSTRUCTOR Work Phone: History of reconstru ction of anterior cruciate ligament tear Status post arthroscopic reconstruction of anterior cruciate ligament of left knee using quadriceps tendon autograft Jennifer Dozier MEDICAL LAB TECH INSTRUCTOR Laparoscopic excisio n of cyst of left ovary Myron Rojas Plan of Treatment Date Care Activity Detail Author Start: 11-25-2024 End: 11-25-2024 Patient encounter procedure 11/25/2024 1:50 PM EDT Routine [facility] [address] [place] [address] Doc Thomas, [address] [place] [address] [facility] Start: 11-16-2024 [facility] Start: 10-28-2024 End: 10-28-2024 Patient encounter procedure [facility] Comment on above: Arrived Start: 10-28-2024 End: 10-28-2025 12 lead ECG ECG 12 lead unit performed ECG Routine Heart palpitations Expected: 10/28/2024 (Approximate), Expires: 10/28/2025 [facility] Comment on above: Expected: 10/28/2024 (Approximate), Expires: 10/28/2025 Start: 10-28-2024 End: 10-28-2025 CBC panel - Blood by Automated count CBC Lab Routine Diabetes mellitus screening Expected: 10/28/2024 (Approximate), Expires: 10/28/2025 [facility] Work Phone: Comment on above: Expected: 10/28/2024 (Approximate), Expires: 10/28/2025 Start: 10-28-2024 End: 10-28-2026 Echocardiogram 2D complete Echocardiogram 2D complete Echocardiography Routine Heart palpitations Expected: 10/28/2024 (Approximate), Expires: 10/28/2026 [facility] Comment on above: Expected: 10/28/2024 (Approximate), Expires: 10/28/2026 Start: 10-28-2024 End: 10-28-2025 Measurement of glucose 1 hour after glucose challenge for glucose tolerance test Glucose tolerance, 1 hour Lab Routine Diabetes mellitus screening Expected: 10/28/2024 (Approximate), Expires: 10/28/2025 [facility] Comment on above: Expected: 10/28/2024 (Approximate), Expires: 10/28/2025 Start: 09-30-2024 End: 09-30-2024 Patient encounter procedure 09/30/2024 3:40 PM EDT Routine [facility] [address] [place] [id number] Doc Thomas, DO [address] [place] [address] [facility] Start: 09-30-2024 End: 09-30-2024 Professional / ancillary services management 09/30/2024 2:30 PM EDT Ancillary Procedure [facility] [address] [place] [id number] [facility] Start: 09-02-2024 End: 09-02-2024 Patient encounter procedure [facility] Comment on above: Arrived Start: 09-02-2024 End: 11-02-2024 Alpha fetoprotein, maternal Alpha fetoprotein, maternal Lab Routine Second trimester ([facility]) Expected: 09/02/2024 (Approximate), Expires: 11/02/2024 [facility] Comment on above: Expected: 09/02/2024 (Approximate), Expires: 11/02/2024 Start: 09-02-2024 End: 12-03-2024 US for US OB 14+ weeks anatomy scan Imaging Routine Screening, , for anatomic survey ([facility]) Expected: 09/02/2024, Expires: 12/03/2024 [facility] Work Phone: Comment on above: Expected: 09/02/2024 , Expires: 12/03/2024 Start: 08-05-2024 End: 08-05-2024 Patient encounter procedure [facility] Comment on above: Arrived Start: 07-16-2024 End: 07-16-2025 ABO/Rh ABO/Rh Lab Routine Missed menses , unspecified gestational age Expected: 07/16/2024 (Approximate), Expires: 07/16/2025 [facility] Comment on above: Expected: 07/16/2024 (Approximate), Expires: 07/16/2025 Start: 07-16-2024 End: 07-16-2025 Blood type and Indirect antibody screen panel - Blood Type and screen Lab Routine Missed menses , unspecified gestational age Expected: 07/16/2024 (Approximate), Expires: 07/16/2025 [facility] Comment on above: Expected: 07/16/2024 (Approximate), Expires: 07/16/2025 Start: 07-16-2024 End: 07-16-2025 Drugs of abuse panel - Urine by Screen method Rapid drug screen, urine Lab Routine , unspecified gestational age Encounter for supervision of normal first in first trimester Expected: 07/16/2024 (Approximate), Expires: 07/16/2025 [facility] Comment on above: Expected: 07/16/2024 (Approximate), Expires: 07/16/2025 Start: 07-10-2024 End: 10-09-2024 US Pelvis transvaginal US OB transvaginal Imaging Routine Missed menses Expected: 07/10/2024, Expires: 10/09/2024 [facility] Work Phone: Comment on above: Expected: 07/10/2024 , Expires: 10/09/2024 Start: 02-21-2024 End: 02-21-2024 Patient encounter procedure 02/21/2024 8:00 AM EST Office Visit [facility] [address] [place] [phone] Myron Rojas, [address] [place] [address] [facility] Start: 02-19-2024 End: 02-19-2024 Patient encounter procedure 02/19/2024 3:30 PM EST Office Visit [facility] [address] [place] [address] Rosalie Payne MD [address] [place] [address] [address] 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CMS/HCC); Chronic fatigue; Cigarette smoker; [...] Treatment [facility] [address] [place] [phone] Pepe Kirby, PT [address] [place] [address] [facility] Start: 01-14-2024 End: 01-14-2024 ambulatory 01/14/2024 3:30 PM EDT Treatment [facility] [address] [place] [phone] Nereyda Vieira, MEDICAL LAB TECH INSTRUCTOR [address] [place] [address] [facility] Start: 01-10-2024 End: 01-10-2024 ambulatory 01/10/2024 2:30 PM EDT Treatment [facility] [address] [place] [phone] Pepe Kirby, PT [address] [place] [address] [facility] Start: 01-07-2024 End: 01-07-2024 ambulatory 01/07/2024 3:30 PM EDT Treatment [facility] [address] [place] [phone] Pepe Kirby, PT [address] [place] [address] [facility] Start: 01-03-2024 End: 01-03-2024 ambulatory 01/03/2024 2:30 PM EDT Treatment [facility] [address] [place] [phone] Pepe Kirby, PT [address] [place] [address] [facility] Start: 12-31-2023 End: 12-31-2023 ambulatory 12/31/2023 3:30 PM EDT Treatment [facility] [address] [place] [phone] Jennifer Dozier, EUGENE [facility] Start: 12-27-2023 End: 12-27-2023 ambulatory [facility] Comment on above: Arrived Start: 12-24-2023 End: 12-24-2023 ambulatory 12/24/2023 3:00 PM EDT Treatment [facility] [address] [place] [phone] Dariel Nereyda, MEDICAL LAB TECH INSTRUCTOR [address] [place] [address] [facility] Start: 12-17-2023 End: 12-17-2023 ambulatory 12/17/2023 3:00 PM EDT Treatment [facility] [address] [place] [phone] Pepe Kirby, PT [address] [place] [address] [facility] Start: 12-09-2023 End: 12-09-2023 Patient encounter procedure [facility] Comment on above: Arrived Start: 12-03-2023 End: 12-03-2023 ambulatory 12/03/2023 3:30 PM EDT Treatment [facility] [address] [place] [phone] Nereyda Vieira, MEDICAL LAB TECH INSTRUCTOR [address] [place] [address] Arrived [facility] Comment on above: Arrived Start: 11-19-2023 End: 11-19-2023 ambulatory [facility] Comment on above: Acute pain of left k nee (Primary Dx); Status post arthroscopic reconstruction of anterior cruciate ligament of left knee using quadriceps tendon autograft Start: 11-17-2023 Influenza vaccination Influenza Vacc ine (#1) [facility] Start: 09-02-2023 [facility] Start: 05-07-2023 End: 05-07-2023 Patient encounter procedure 05/07/2023 11:10 AM EST Office Visit [facility] [address] [place] [phone] Doc Thomas, [address] [place] [address] [facility] Start: 05-03-2023 End: 05-03-2023 Patient encounter procedure 05/03/2023 11:00 AM EST Office Visit [facility] [address] [place] [phone] Myron Rojas, DO [address] [place] [address] [facility] Start: 04-23-2023 End: 04-23-2023 Patient encounter procedure 04/23/2023 8:00 AM EST Procedure Visit [facility] Myron Rojas, DO [address] [place] [address] [facility] Start: 04-22-2023 End: 04-22-2023 ambulatory 04/22/2023 2:30 PM EST Evaluation [facility] [address] [place] [phone] Pepe Kirby, PT [address] [place] [address] [facility] Start: 11-16-2022 Influenza vaccination Influenza Vacc ine (#1) [facility] Start: 08-30-2021 DTaP/Tdap/Td vaccine (5 - Td or Tdap) DTaP/Tdap/Td vaccine (5 - Td or Tdap) [facility] Start: 11-16-2020 Influenza vaccination Flu vaccine (# 1) [facility] Start: 06-09-2020 Screening for malign ant neoplasm of cervix [facility] Start: 06-09-2018 DTaP/Tdap/Td vaccine (1 - Tdap) DTaP/Tdap/Td vaccine (1 - Tdap) [facility] Work Phone: Start: 2015 Screening for Chlamy jasper trachomatis Chlamydia screen [facility] Start: 06-09-2014 HIV screening HIV screen [facility] Start: 11-23-2011 Varicella vaccine (2 of 2 - 2-dose childhood series) Varicella vaccine (2 of 2 - 2-dose childhood series) [facility] Start: 2011 COVID-19 Vaccine (1) COVID-19 Vaccin e (1) [facility] [employer] Phone: Start: 2011 Depression Screen Depression Screen [facility] Start: 06-09-2010 HPV vaccine (1 - 2-d ose series) HPV vaccine (1 - 2-dose series) [facility] Start: 06-09-2004 COVID-19 Vaccine (1) COVID-19 Vaccin e (1) [facility] Start: 06-09-2000 Varicella vaccine (1 of 2 - 2-dose childhood series) Varicella vaccine (1 of 2 - 2-dose childhood series) [facility] [employer] Phone: Start: 1999 Hepatitis C screening Hepatitis C sc reen [facility] Bacteria identified in Urine by Culture Urine culture Microbiology Routine Missed menses Ordered: 07/16/2024 [facility] Comment on above: Ordered: 07/16/2024 CBC W Auto Different ial panel - Blood CBC and differential Lab Routine Missed menses , unspecified gestational age Ordered: 07/16/2024 [facility] Comment on above: Ordered: 07/16/2024 CHLAMYDIA TRACHOMATI S (GENITO/STI) CHLAMYDIA TRACHOMATIS (GENITO/STI) Lab Routine STD exposure Ordered: 10/28/2024 [facility] Comment on above: Ordered: 10/28/2024 Cytology Cervical or vaginal smear or scraping study Pap Smear Pathology and Cytology Routine Well woman exam with routine gynecological exam Ordered: 10/28/2024 [facility] Comment on above: Ordered: 10/28/2024 Hemoglobin A1c/Hemoglobin.total in Blood Hemoglobin A1c Lab Routine Missed menses , unspecified gestational age Ordered: 07/16/2024 [facility] Comment on above: Ordered: 07/16/2024 Hepatitis B virus surface Ag [Presence] in Serum or Plasma by Immunoassay Hepatitis B surface antigen Lab Routine Missed menses , unspecified gestational age Ordered: 07/16/2024 [facility] Comment on above: Ordered: 07/16/2024 Hepatitis C virus Ab [Presence] in Serum or Plasma by Immunoassay Hepatitis C antibody Lab Routine Missed menses , unspecified gestational age Ordered: 07/16/2024 [facility] Comment on above: Ordered: 07/16/2024 HIV-1/HIV-2 antigen/antibody combination immunoassay HIV-1 and HIV-2 antibodies Lab Routine Missed menses , unspecified gestational age Ordered: 07/16/2024 [facility] Comment on above: Ordered: 07/16/2024 Neisseria gonorrhoea e DNA [Presence] in Unspecified specimen by QUEENIE with probe detection Neisseria gonorrhea DNA probe, direct Lab Routine STD exposure Ordered: 10/28/2024 [facility] Comment on above: Ordered: 10/28/2024 Patient Education Hiatal hernia Hemorrhoids Gastritis [facility] Work Phone: Reagin Ab [Presence] in Serum by RPR RPR Lab Routine Missed menses , unspecified gestational age Ordered: 07/16/2024 [facility] Comment on above: Ordered: 07/16/2024 Rubella antibody, IgG Rubella an tibody, IgG Lab Routine Missed menses , unspecified gestational age Ordered: 07/16/2024 [facility] Comment on above: Ordered: 07/16/2024 SURESWAB(R) ADVANCED VAGINITIS PLUS, TMA SURESWAB(R) ADVANCED VAGINITIS PLUS, TMA Pathology and Cytology Routine STD exposure Ordered: 10/28/2024 [facility] Comment on above: Ordered: 10/28/2024 End: 08-05-2025 Thyrotropin [Units/volume] in Serum or Plasma TSH Lab Routine 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CMS/HCC) [id number] for 6 Occurrences starting 08/05/2024 until 08/05/2025 [facility] Work Phone: Comment on above: [id number] for 6 Occurr ences starting 08/05/2024 until 08/05/2025 US Pelvis transvaginal US OB tra nsvaginal Imaging Routine Missed menses 07/16/2024 1:59 PM EDT [facility] Immunizations Immunization Date Immunization Notes Care Provider Zenon will 11-12-2016 hepatitis B vaccine, adult dosage Pepe Kirby PT Work Phone: [facility] 11-12-2016 meningococcal oligosaccharide (groups A, C, Y and W-135) diphtheria toxoid conjugate vaccine (MCV4O) Pepe Kirby PT Work Phone: [facility] 03-31-2012 hepatitis A vaccine, pediatric/adolescent dosage, 2 dose schedule Pepe Kirby PT Work Phone: [facility] 08-31-2011 hepatitis A vaccine, pediatric/adolescent dosage, 2 dose schedule Pepe Kirby PT Work Phone: [facility] 08-31-2011 tetanus toxoid, redu leyla diphtheria toxoid, and acellular pertussis vaccine, adsorbed Pepe Kirby PT Work Phone: [facility] 08-31-2011 varicella virus vaccine Pepe Kirby PT Work Phone: [facility] 09-11-2000 haemophilus influenz ae type b conjugate and Hepatitis B vaccine Pepe Kirby PT Work Phone: [facility] 09-11-2000 haemophilus influenz ae type b vaccine, HbOC conjugate Pepe Kirby PT Work Phone: [facility] 09-11-2000 hepatitis B vaccine, pediatric or pediatric/adolescent dosage Pepe Kirby PT Work Phone: [facility] 09-11-2000 measles, mumps and r ubella virus vaccine Pepe Kirby PT Work Phone: [facility] 09-11-2000 poliovirus vaccine, inactivated Pepe Kirby PT Work Phone: [facility] 03-26-2000 DTaP-Haemophilus influenzae type b conjugate vaccine Pepe Kirby PT Work Phone: [facility] 03-26-2000 pneumococcal conjuga te vaccine, 7 valent Pepe Kirby PT Work Phone: [facility] 1999 diphtheria, tetanus toxoids and acellular pertussis vaccine, Haemophilus influenzae type b conjugate, and poliovirus vaccine, inactivated (CKiX-[id number]-JAM) Pepe Kirby PT Work Phone: [facility] 1999 diphtheria, tetanus toxoids and acellular pertussis vaccine, Haemophilus influenzae type b conjugate, and poliovirus vaccine, inactivated ([id number]-Zkr-KXM) Pepe Kirby PT Work Phone: [facility] 1999 hepatitis B vaccine, pediatric or pediatric/adolescent dosage Pepe Kirby PT Work Phone: [facility] 1999 hepatitis B vaccine, pediatric or pediatric/adolescent dosage Pepe Kirby PT Work Phone: [facility] Payers Date Payer Category Payer Self-pay 2023 Unknown [id number] 2022 Unknown [id number] 2022 Blue Cross Blue Shield 1.2.8 [id number] 2022 Unknown [id number] [id number] 2020 Unknown [id number] 1.2.840.863784.1.13.239.2.7.3.061268.315 2006 Private Health Insurance [id number] 1999 Unknown [id number] 2.16.8 40.1.994983.3.579.2.173 1999 Unknown [id number] 2.16.8 40.1.789800.3.579.2.173 1999 Unknown [id number] 2.16.8 40.1.361557.3.579.2.173 1999 Unknown [id number] 2.16.84 0.1.333950.3.579.2.593 1999 Unknown [id number] 2.16.84 0.1.540526.3.579.2.593 1999 Unknown [id number] 2.16.8 40.1.413211.3.579.2.727 1999 Unknown [id number] 2.16.8 40.1.356552.3.579.2.727 1999 Unknown [id number] 2.16.8 40.1.282537.3.579.2.1259 1999 Unknown [id number] 2.16.8 40.1.862414.3.579.2.9 1999 Unknown [id number] 2.16.8 40.1.059764.3.579.2.1258 1999 Unknown [id number] 2.16.84 0.1.738995.3.579.2.1258 1999 Unknown [id number] 2.16.84 0.1.161591.3.579.2.1258 1999 Unknown [id number] 2.16.84 0.1.312027.3.579.2.1258 1999 Unknown [id number] 2.16.84 0.1.977365.3.579.2.1258 1999 Unknown [id number] 2.16.84 0.1.816630.3.579.2.1258 1999 Unknown [id number] 2.16.84 0.1.232911.3.579.2.1258 1999 Unknown [id number] 2.16.84 0.1.278729.3.579.2.1258 1999 Unknown [id number] 2.16.84 0.1.787995.3.579.2.1258 1999 Unknown [id number] 2.16.84 0.1.960726.3.579.2.1258 1999 Unknown [id number] 2.16.84 0.1.075597.3.579.2.1258 1999 Unknown [id number] 2.16.84 0.1.768798.3.579.2.1259 1999 Unknown [id number] 2.16.84 0.1.463729.3.579.2.1259 1999 Unknown [id number] 2.16.84 0.1.614239.3.579.2.9 1999 Unknown [id number] 2.16.84 0.1.452668.3.579.2.9 1999 Unknown [id number] 2.16.84 0.1.502139.3.579.2.9 1999 Unknown [id number] 2.16.84 0.1.852599.3.579.2.1259 1999 Unknown [id number] 2.16.84 0.1.145747.3.579.2.9 1999 Unknown [id number] 2.16.84 0.1.206370.3.579.2.1259 1959 Unknown [id number] 2.1 6.840.1.602068.19 1959 Unknown [id number] [facility] GTFAN [id number] 2.16.840.1.972691.19 Unknown [id number] 2.16.8 40.1.808919.3.579.2.531 Social History Date Type Detail Facility Start: 09-19-2020 End: 12-14-2020 Tobacco smoking status [facility] Never smoker [facility] Phone: Start: 09-19-2020 End: 05-10-2023 Tobacco use and exposure Never used [facility] Start: 1999 Sex Assigned At Not on file [facility] Phone: Exposure to SARS-CoV -2 (event) Not sure [facility] Start: 12-14-2020 End: 05-24-2021 Alcohol intake Current drinker of alcohol (finding) [facility] Phone: Start: 12-14-2020 Alcohol Comment Rare [facility] Phone: Start: 12-11-2022 End: 02-26-2024 Sex Assigned At [facility] Tobacco Current vaping o r e-cigarette use Smokeless Tobacco Use:. Vaping [facility] Tobacco smoking status No Smokin g Status Entered [facility] Start: 02-09-2023 End: 05-10-2023 Tobacco smoking status [...] 09-02-2023 Tobacco smoking status NHIS Smoker (finding) [facility] History of tobacco use Cigarette Smoker [facility] Start: 03-15-2025 [facility] Goals Date Patient Goal Desired Activity /State Functional Status Date Assessment Result Facility 04-03-[address] [facility] Clinical Notes 04-07-2021 to 10-28-2024 Jessica [...] Left 2019 OVARIAN CYST REMOVAL Left 05/20/2020 [facility] William VAGINAL DELIVERY REVIEW OF SYSTEMS [...] nursing note reviewed. Exam conducted with a veneer layer present. Vitals: Estimated body mass index is 28.49 kg/m as calculated from the following: Height as of 24: 5' 4 . Weight as of this encounter: 166 lb. BP: 130/80 Patient's last menstrual period was 05/16/2024. ASSESSMENT & PLAN ICD-10-CM 1. Second trimester ([facility]) Z34.92 POCT urinalysis dipstick manually resulted 2. 23 weeks gestation of ([facility]) Z3A.23 3. Diabetes mellitus screening Z13.1 CBC [...] and prior work up for palpitations with [facility]. Plan will be to continue TSH every 4 weeks, EKG and cardiac Echo and follow up with [facility] and a referral will be made she declined Metoprolol at this time. Patient is to return to office in 4 week for routine OB appointment. Documented by Jessica Steen NP on behalf of: Jessica Steen NP documented in this encounter [facility] 09-30-2024 History of Present illness Narrative [...] Left 2019 OVARIAN CYST REMOVAL Left 05/20/2020 [facility] William VAGINAL DELIVERY REVIEW OF SYSTEMS [...] nursing note reviewed. Exam conducted with a veneer layer present. Vitals: Estimated body mass index is 28.29 kg/m as calculated from the following: Height as of 24: 5' 4 . Weight as of this encounter: 164 lb 12.8 oz. BP: 110/72 Patient's last menstrual period was 05/16/2024. ASSESSMENT & PLAN ICD-10-CM 1. 19 weeks gestation of ([facility]) Z3A.19 POCT urinalysis dipstick manually resulted 2. Second trimester ([facility]) Z34.92 POCT urinalysis dipstick manually [...] Doc Thomas DO documented in this encounter [facility] 09-02-2024 History of Present illness Narrative [...] Left 2019 OVARIAN CYST REMOVAL Left 05/20/2020 [facility] William VAGINAL DELIVERY REVIEW OF SYSTEMS [...] nursing note reviewed. Exam conducted with a veneer layer present. Vitals: Estimated body mass index is 30.21 kg/m as calculated from the following: Height as of 02/26/24: 5' 4 . Weight as of 08/05/24: 176 lb. BP: Patient's last menstrual period was 05/16/2024. ASSESSMENT & PLAN ICD-10-CM 1. Second trimester ([facility]) Z34.92 Alpha fetoprotein, maternal Alpha fetoprotein, maternal POCT urinalysis dipstick manually resulted 2. 15 weeks gestation of ([facility]) Z3A.15 3. Screening, , for anatomic survey ([facility]) Z36.89 US OB 14+ weeks anatomy scan [...] of: ADAN Gonzalez documented in this encounter [facility] 08-05-2024 History of Present illness Narrative [...] Left 2019 OVARIAN CYST REMOVAL Left 05/20/2020 [facility] William VAGINAL DELIVERY REVIEW OF SYSTEMS [...] nursing note reviewed. Exam conducted with a veneer layer present. Vitals: Estimated body mass index is [...] or undercooked meat, and stay away from [facility]. Patient has been consulted regarding any further [...] Doc Thomas DO documented in this encounter [facility] 07-16-2024 History of Present illness Narrative [...] Left 2019 OVARIAN CYST REMOVAL Left 05/20/2020 [facility] William VAGINAL DELIVERY Allergies Allergen Reactions [...] or undercooked meat, and stay away from [facility]. Patient has also been advised to not [...] Aliya Aguilar LPN documented in this encounter [facility] 02-26-2024 History of Present illness Narrative [...] Left 2019 OVARIAN CYST REMOVAL Left 05/20/2020 [facility] William VAGINAL DELIVERY FAMILY HISTORY: Family [...] 7:42 AM EST documented in this encounter [facility] 02-19-2024 History of Present illness Narrative [...] Iron and TIBC documented in this encounter [facility] 12-27-2023 History of Present illness Narrative [...] at this time. documented in this encounter [facility] 12-17-2023 History of Present illness Narrative [...] from IE 05/10/23 Gait: mod ind with toña crutches PWB amb over flexed knee ,foot [...] Continue as tolerated. documented in this encounter [facility] 12-09-2023 History of Present illness Narrative Images from the original note were not included. @ANAND@ [facility] Matthew is a 23 y.o. female [...] operative report and arthroscopic photos available in [facility]. Following the surgery in April 2023, [...] Left 2019 OVARIAN CYST REMOVAL Left 05/20/2020 [facility] William VAGINAL DELIVERY FAMILY HISTORY: Family [...] note was created using voice recognition through [employer]. documented in this encounter [facility] 09-02-2023 Procedure note [facility] 09-02-2023 History and physical note Note Date/Time September 02, 2023 11:40am [facility] [address] [place] [address] Gastroenterology H&P Signed Patient: Aleta Castro MR#: [id number] : 2000 Acct:[id number] Age/Sex: 23 / F Adm Date: 4 Loc: Room: Type: [facility] Attending Dr: Marcelle Espinosa DO Copies to: [...] signed by Marcelle Espinosa DO> 09/02/23 1140 [facility] Work Phone: [phone] [facility] [id number]01-15-2024 Evaluation note* Encounter Date Diagnosis Assessment [...] follow up with PCP if symptoms persist. [facility] Other 06-06-2022 Evaluation note* Encounter Date Diagnosis [...] or concerns Aug, Bronchitis (ICD-10 - J40) [facility] Other 03-09-2022 Hospital Discharge instructions* Instructions* Artis [...] be sent through Care Everywhere. * Contusion (Irish) * Knee Pain or Injury (Irish) * RICE: General Info (Irish) [facility] Work Phone: [phone]) 992-647502-24-2022 Evaluation note* Encounter Date Diagnosis Assessment Notes Treatment Notes Treatment Clinical Notes Apr, Oral thrush (ICD-10 - B37.0) Use medication as directed. Change toothbrush. Follow up with PCP if symptoms do not improve with treatment [facility] Other 02-14-2022 Evaluation note* Encounter Date Diagnosis [...] Patient care instructions given in writting by [facility] Care At Home document. [facility] Other 01-21-2022 Evaluation note* Encounter Date Diagnosis [...] Patient care instructions given in writting by [facility] Care At Home document. [facility] Other Evaluation + Plan note Future Appointments Appointment Date:04/23/2023 07:30:00 AM Scheduled Provider: [facility] Closed head injury, initial encounter- Primary documented in this encounter [facility] Work Phone: evalsjlqly note* Diagnosis Tailbone injury, initial encounter- Primary documented in this encounter [facility] Phone: evaleawnul note* Diagnosis Contusion of left knee, initial encounter- Primary documented in this encounter [facility] Phone: evalwtmelc note* Diagnosis Onset Date Resolution Status Diarrhea acute GERD (gastroesophageal reflux disease) acute Lower abdominal pain acute Nausea acute [facility] Work Phone: Evaluation note* Diagnosis Onset Date Resolution Status Diarrhea acute Dysphagia acute GERD (gastroesophageal reflux disease) acute Lower abdominal pain acute Nausea [facility] Work Phone: Evaluation note* Diagnosis Acute pain of left knee- Primary Status post arthroscopic reconstruction of anterior cruciate ligament of left knee using quadriceps tendon autograft documented in this encounter [facility]* Diagnosis Acute pain of left knee- Primary Status post arthroscopic reconstruction of anterior cruciate ligament of left knee using quadriceps tendon autograft documented in this encounter [facility]* Diagnosis Acute pain of left knee- Primary Status post arthroscopic reconstruction of anterior cruciate ligament of left knee using quadriceps tendon autograft documented in this encounter [facility]* Diagnosis Subclinical hypothyroidism (CMS/HCC)- [...] of (HHS-HCC) Screening, , for anatomic survey ([facility]) Encounter for anatomic survey documented [...] History left ovarian cyst Hospitalization History child [facility] Other Hospital course Narrative No data available for this section [facility] Attachments The following attachments cannot be sent through Care Everywhere. * Head Injury: Closed: General Info (Irish) documented in [facility] Phone: Hospital Discharge instructions* Attachments The following attachments cannot be sent through Care Everywhere. * Coccyx Injury (Irish) documented in this encounterCleveland Clinic FoundationAnobit Technologies Phone: Hospital Discharge instructions No data available for this section [facility] No data available for this section [facility] Summary Purpose Family History Relationship Condition Age [...] section and content) DATE CREATED AUTHOR 09/05/2017 [facility] DATE CREATED AUTHOR AUTHOR'S ORGANIZ ATION 09/05/[address] [facility] DATE CREATED AUTHOR AUTHOR'S ORGANIZ ATION 10/28/2019 [facility] DATE CREATED AUTHOR AUTHOR'S ORGANIZ ATION 05/26/2021 [facility] DATE CREATED AUTHOR AUTHOR'S ORGANIZ ATION 05/10/2022 [facility] DATE CREATED AUTHOR AUTHOR'S ORGANIZ ATION 07/24/2022 [facility] dical Specialist DATE CREATED AUTHOR AUTHOR'S ORGANIZ ATION 05/15/2023 [facility] DATE CREATED AUTHOR AUTHOR'S ORGANIZ ATION 09/11/2023 [facility] DATE CREATED AUTHOR AUTHOR'S ORGANIZ ATION 02/08/2024 [facility] DATE CREATED AUTHOR AUTHOR'S ORGANIZ ATION 10/04/2024 [facility] dical Specialists EPIC Reason for Visit (unrecogniz ed section and content) Reason Comments Head Injury headbutted repeated 10 times today around 1255 Headache Nausea Reason Comments Other Pt had a chair pulle d out from under her while at work. Pt fell onto hard ground. Pain in lower back. Reason Comments Knee Pain left knee, was kicke d by resident at [facility] at approx 1930 Specialty Diagnoses / Procedures Referred By Neo t Referred To Contact Physical Therapy Diagnoses Other specified postprocedural states Personal history of other diseases of the musculoskeletal system and connective tissue Procedures KS THERAPEUTIC PX 1/ AREAS EACH 15 MIN EXERCISES Myron Rojas, DO [address] [place], [place] Pepe Kirby, PT [address] [place] [address] Referral ID Status Reason Start Date Expiration Date V isits Requested Visits Authorized [id number] Authorized 09/10/2023 03/08/2024 99 99 Reason Comments [...] Care Teams (unrecognized sec tion and content) Java Application Developer Relationship Specialty Start Date End Date Rosalie Payne MD [address] [place] [address] PCP - General 05/24/21 Java Application Developer Relationship Specialty Start Date End Date Rosalie Payne MD [address] [place] [address] PCP - General Family Medicine 07/24/22 Team [...] Other Provider Active Start: September 02, 2023 Java Application Developer Relationship Specialty Start Date End Date Rosalie Pyane MD [address] [place] [address] (Fax) PCP - General Family Medicine 07/24/22 Java Application Developer Relationship Specialty Start Date End Date Rosalie Payne MD [address] [place] [address] (Fax) PCP - General Family Medicine 07/24/22 Java Application Developer Relationship Specialty Start Date End Date Rosalie Payne MD [address] [place] [address] (Fax) PCP - General Family Medicine 07/24/22 Java Application Developer Relationship Specialty Start Date End Date Rosalie Payne MD [address] [place] [address] (Fax) PCP - General Family Medicine 07/24/22 Java Application Developer Relationship Specialty Start Date End Date Rosalie Payne MD [address] [place] [address] (Fax) PCP - General Family Medicine 07/24/22 Java Application Developer Relationship Specialty Start Date End Date Rosalie Payne MD [address] [facility] [place] [phone] (Fax) PCP - General Family Medicine 07/24/22 Java Application Developer Relationship Specialty Start Date End Date Rosalie Payne MD [address] [place] [address] (Fax) PCP - General Family Medicine 07/24/22 Java Application Developer Relationship Specialty Start Date End Date Rosalie Payne MD [address] [place] [address] (Fax) PCP - General Family Medicine 07/24/22 Java Application Developer Relationship Specialty Start Date End Date Rosalie Payne MD [address] [place] [address] (Fax) PCP - General Family Medicine 07/24/22 Java Application Developer Relationship Specialty Start Date End Date Rosalie Payne MD [address] [place] [address] (Fax) PCP - General Family Medicine 07/24/22 Java Application Developer Relationship Specialty Start Date End Date Rosalie Payne MD [address] [place] [address] (Fax) PCP - General Family Medicine 07/24/22 Java Application Developer Relationship Specialty Start Date End Date Rosalie Payne MD [address] [place] [address] (Fax) PCP - General Family Medicine 07/24/22 Rosalie Payne MD [address] [place] [address] (Fax) PCP - [employer] 06/16/20 Java Application Developer Relationship Specialty Start Date End Date Rosalie Payne MD [address] [place] [address] (Fax) PCP - General Family Medicine 07/24/22 Rosalie Payne MD [address] [place] [address] (Fax) PCP - [employer] 06/16/20 Java Application Developer Relationship Specialty Start Date End Date Rosalie Payne MD [address] [place] [address] (Fax) PCP - General Family Medicine 07/24/22 Rosalie Payne MD [address] [place] [address] (Fax) PCP - [employer] 06/16/20 Java Application Developer Relationship Specialty Start Date End Date Rosalie Payne MD [address] [place] [address] (Fax) PCP - General Family Medicine 07/24/22 Rosalie Payne MD [address] [place] [address] (Fax) PCP - [employer] 06/16/20 Java Application Developer Relationship Specialty Start Date End Date Rosalie Payne MD [address] [place] [address] (Fax) PCP - General Family Medicine 07/24/22 Rosalie Payne MD [address] [place] [address] (Fax) PCP - [employer] 06/16/20 Java Application Developer Relationship Specialty Start Date End Date Rosalie Payne MD [address] [place] [address] (Fax) PCP - General Family Medicine 07/24/22 Rosalie Payne MD [address] [place] [address] (Fax) PCP - [employer] 06/16/20 Java Application Developer Relationship Specialty Start Date End Date Rosalie Payne MD [address] [place] [address] (Fax) PCP - General Family Medicine 07/24/22 Rosalie Payne MD [address] [place] [address] (Fax) [facility] 06/16/20 Java Application Developer Relationship Specialty Start Date End Date Rosalie Payne MD [address] [place] [address] (Fax) [facility] 07/24/22 Rosalie Payne MD [address] [place] [address] (Fax) [facility] 06/16/20 Java Application Developer Relationship Specialty Start Date End Date Rosalie Payne MD [address] [place] [address] (Fax) [facility] 07/24/22 Rosalie Payne MD [address] [place] [address] (Fax) [facility] 06/16/20 Goals (unrecognized section and content) [...] BE BASED ON THE PRIMARY CLINICAL RECORDS. [facility]. provides no warranty or guarantee of the accuracy or completeness of information in this document.
[2024-11-03 11:08] LABS: Age Gdln ACOG Testing Note (.); IGP, rfx Aptima HPV ASCU Note (.)
== END 2024-10-28 18:45 | disposition home or self-care (01) ==
LOC: LAB 18:44
PROVIDERS: PCP Family Medicine; Visit Provider Physician Assistant
DX: Z01.419 Encounter for gynecological examination (general) (routine) without abnormal findings (principal)
CPT/HCPCS: 88175

== ENCOUNTER 2024-11-03 15:03 | Outpatient (OUT) | payer BC, SELFPAY ==
--- OUTSIDE RECORDS SUMMARY | 2024-10-28 14:30 | XMS_ITS | Encounter Summary ---
Author Organization [facility] Address [address] [place] [address] Care Team Providers Care Fws Faculty Assistant Name Role Phone Danny Schuler MD Primary Care Provider [phone] Danny Schuler MD Unavailable [phone] Reason for Referral * Imaging (Routine) - Pending Review Specialty Diagnoses / Procedures Referred By Neo amato Referred To Contact Radiology Diagnoses Heart palpitations Procedures Echocardiogram 2D complete Jessica Steen, [place] [address] [place] [address] Phone: tel: fax: [facility] [address] [place] [address] Phone: tel: fax: Referral ID Status Reason Start Date Expiration Date Visits Requested Visits Authorized [id number] Pending Review Perform Procedure 10/28/2024 04/26/2025 1 1 Reason for Visit * Reason Comments Routine Visit Encounter Details Date Type Department Care Team (Latest Contact Info) Description 10/28/2024 2:30 PM EDT Routine [facility] [address] [place] [address] Pretty Chaidez PA [address] [place] [address] Second trimester ([facility]); 23 weeks gestation of ([facility]); Diabetes mellitus screening; STD exposure; Well woman exam with routine gynecological exam; Heart palpitations Social History Tobacco Use Types Packs/Day Years Used Date Smoking Tobacco: Some Days Cigarettes Smokeless Tobacco: Never Alcohol Use Standard Drinks/Week Comments Not Currently 0 (1 standard drink = 0.6 oz pur e alcohol) 2-4 drinks per week Humiliation, Afraid, Rape, and Kick questionnair e Answer Date Recorded Within the last year, have y ou been afraid of your partner or ex-partner? No 12/11/2022 Within the last year, have y ou been humiliated or emotionally abused in other ways by your partner or ex-partner? No Within the last year, have y ou been kicked, hit, slapped, or otherwise physically hurt by your partner or ex-partner? No 12/11/2022 Within the last year, have y ou been raped or forced to have any kind of sexual activity by your partner or ex-partner? No 12/11/2022 Social Connection and Isolat ion Panel [NHANES] Answer Date Recorded In a typical week, how many times do you talk on the phone with family, friends, or neighbors? Three times a week 12/11/2022 How often do you get togethe r with friends or relatives? Once a week 12/11/2022 How often do you attend [facility] or rastafari services? More than 4 times per year 12/11/2022 Do you belong to any clubs o r organizations such as gnosticism groups, unions, fraternal or athletic groups, or school groups? No 12/11/2022 How often do you attend meet ings of the clubs or organizations you belong to? Never 12/11/2022 Are you , , di vorced, , never , or living with a partner? 12/11/2022 AUDIT-C Answer Date Recorded Q1: How often do you have a drink containing alc ohol? 2-4 times a month 12/11/2022 Q2: How many drinks containi ng alcohol do you have on a typical day when you are drinking? 1 or 2 12/11/2022 Q3: How often do you have si x or more drinks on one occasion? Never 12/11/2022 Overall Financial Resource Strain (CARDIA) Answe r Date Recorded How hard is it for you to pa y for the very basics like food, housing, medical care, and heating? Somewhat hard 12/11/2022 [facility] - Occupational Stress Questionnaire Answer Date Recorded Do you feel stress - tense, restless, nervous, or anxious, or unable to sleep at night because your mind is troubled all the time - these days? Only a little 12/11/2022 Exercise Vital Sign Answer Date Recorde d On average, how many days pe r week do you engage in moderate to strenuous exercise (like a brisk walk)? 7 days 12/11/2022 On average, how many minutes do you engage in exercise at this level? 60 min 12/11/2022 Hunger Vital Sign Answer Date Recorded Within the past 12 months, y ou worried that your food would run out before you got the money to buy more. Never true 12/12/19 23 Within the past 12 months, t he food you bought just didn't last and you didn't have money to get more. Never true 12/11/2022 PRAPARE - Transportation Answer Date Re corded In the past 12 months, has l ack of transportation kept you from medical appointments or from getting medications? No 11/17 In the past 12 months, has l ack of transportation kept you from meetings, work, or from getting things needed for daily living? No 12/11/2022 Housing Stability Vital Sign Answer Aaron e Recorded In the last 12 months, was t here a time when you were not able to pay the mortgage or rent on time? No 12/11/2022 In the last 12 months, how many places have you lived? 2 12/11/2022 In the last 12 months, was t here a time when you did not have a steady place to sleep or slept in a custodial (including now)? No 12/11/2022 Education Answer Date Recorded What is the highest level of school you have completed or the highest degree you have received? 11th grade 12/10/2022 Estimated Date of Delivery Comme nts Yes 02/20/2025 Based on last me nstrual period of 05/16/2024 Sex and Gender Information Value Date Recorded Sex Assigned at Female 12/10/2022 10:10 AM EDT Legal Sex Female 6:51 PM EDT Gender Identity Female 12/10/2022 10:10 AM EDT Sexual Orientation Not on file documented as of this encounter Last Filed Vital Signs Vital Sign Reading Time Taken Comments Blood Pressure 130/80 10/28/2024 2:39 PM EDT Pulse - - Temperature - - Respiratory Rate - - Oxygen Saturation - - Inhaled Oxygen Concentration - - Weight 75.3 kg (166 lb) 10/28/2024 2:39 PM EDT Height - - Body Mass Index 28.49 02/26/2024 3:41 PM EST documented in this encounter Progress Notes * Jessica Steen NP - 10/28/2024 2:30 PM EDT Reason for Appointment: Patient ID: Rachel Castro is a 24 y.o. female who presents for Routine Visit Patient presents today for Return OB appointment. 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 Hypotension determined by examination 12/10/2022 Juvenile osteochondrosis of tibial tuberosity 12/10/2022 Non morbid obesity due to excess calories 12/10/2022 Postural orthostatic tachycardia syndrome (POTS) 12/10/2022 Subclinical hypothyroidism 12/10/2022 Acute pain of left knee 04/22/2023 Status post arthroscopic reconstruction of anterior cruciate ligament of left knee using quadricepstendon autograft 05/10/2023 Abnormal bleeding in menstrual cycle 02/19/2024 Resolved Ambulatory Problems Diagnosis Date Noted Overweight (BMI 25.0-29.9) 12/10/2022 Past Medical History: Diagnosis Date Anxiety BMI 30.0-30.9,adult Chronic strep Depot contraception Depression Flat foot History of being hospitalized History of ovarian cyst Negative test Neurocardiogenic syncope Personal history of other medical treatment POTS (postural orthostatic tachycardia syndrome) Syncope, cardiogenic HISTORY PAST MEDICAL HISTORY SOCIAL HISTORY Past Medical History: Diagnosis Date Anxiety BMI 30.0-30.9,adult Chronic strep Depot contraception Depression Flat foot Flat footed feet turn in Gabby's disease History of being hospitalized childbirth History of ovarian cyst Negative test Neurocardiogenic syncope Personal history of other medical treatment Normal body mass index ( BMI ) POTS (postural orthostatic tachycardia syndrome) Subclinical hypothyroidism Syncope, cardiogenic Social History Tobacco Use Smoking status: Some Days Types: Cigarettes Smokeless tobacco: Never Vaping Use Vaping status: Every Day Start date: 03/18/2020 Devices: Disposable Passive vaping exposure: Yes Substance Use Topics Alcohol use: Not Currently Comment: 2-4 drinks per week Drug use: Never FAMILY HISTORY Family History Problem Relation Name Age of Onset Thyroid disease Mother No Known Problems Brother Cancer Maternal Grandmother Anaya Hypertension Maternal Grandfather Hyperlipidemia Maternal Grandfather Diabetes Paternal Grandfather . Hypertension Paternal Grandfather . Hyperlipidemia Paternal Grandfather . Other (POTS) Mother's Sister Other (POTS) Mother's Brother SURGICAL HISTORY Past Surgical History: Procedure Laterality Date ANTERIOR CRUCIATE LIGAMENT REPAIR 04/23/23 COLONOSCOPY 2023 EGD 2023 OVARIAN CYST REMOVAL Left 2019 OVARIAN CYST REMOVAL Left 05/20/2020 [facility] VAGINAL DELIVERY REVIEW OF SYSTEMS Review of Systems: Review of Systems Constitutional: Negative. HENT: Negative. Eyes: Negative. Respiratory: Negative. Cardiovascular: Positive for palpitations. Gastrointestinal: Negative. Genitourinary: Negative. Musculoskeletal: Negative. Skin: Negative. Neurological: Negative. All other systems reviewed and are negative. Hematological: Negative. Endocrine: Negative. Allergic/Immunologic: Negative. OBJECTIVE Objective: Physical Exam Constitutional: Appearance: Normal appearance. She is well-developed. Cardiovascular: Rate and Rhythm: Normal rate and regular rhythm. Pulmonary: Effort: Pulmonary effort is normal. Breath sounds: Normal breath sounds. Abdominal: General: Bowel sounds are normal. There is no distension. Palpations: Abdomen is soft. Tenderness: There is no abdominal tenderness. There is no guarding or rebound. Musculoskeletal: General: No swelling. Normal range of motion. Right lower leg: No edema. Left lower leg: No edema. Neurological: Mental Status: She is alert and oriented to person, place, and time. Skin: General: Skin is warm and dry. Psychiatric: Mood and Affect: Mood normal. Behavior: Behavior normal. Vitals and nursing note reviewed. Exam conducted with a melt room operator present. Vitals: Estimated body mass index is 28.49 kg/m?? as calculated from the following: Height as of 24: 5' 4 . Weight as of this encounter: 166 lb. BP: 130/80 Patient's last menstrual period was 05/16/2024. ASSESSMENT & PLAN ICD-10-CM 1. Second trimester ([facility]) Z34.92 POCT urinalysis dipstick manually resulted 2. 23 weeks gestation of ([facility]) Z3A.23 3. Diabetes mellitus screening Z13.1 CBC Glucose tolerance, 1 hour CBC Glucose tolerance, 1 hour 4. STD exposure Z20.2 SURESWAB(R) ADVANCED VAGINITIS PLUS, TMA CHLAMYDIA TRACHOMATIS (GENITO/STI) Neisseria gonorrhea DNA probe, direct 5. Well woman exam with routine gynecological exam Z01.419 Pap Smear Return OB: Patient presents today for a routine obstetrics appointment. Patient is currently 23w4d . Patient states she is doing well but has complaints of being tired due to current . Patient has verbalizes frequent movement. labor precautions was discussed/given and patient was instructed to perform kick counts three times a day. Orders Placed This Encounter Procedures CBC Glucose tolerance, 1 hour CHLAMYDIA TRACHOMATIS (GENITO/STI) Neisseria gonorrhea DNA probe, direct POCT urinalysis dipstick manually resulted Follow Up: Patient with increased complaints of palpitations. With a history of POTS and prior work up for palpitations with [facility]. Plan will be to continue TSH every 4 weeks, EKG and cardiac Echo and follow up with [facility] and a referral will be made she declined Metoprolol at this time. Patient is to return to office in 4 week for routine OB appointment. Documented by Jessica Steen NP on behalf of: Jessica Steen NP documented in this encounter Plan of Treatment Upcoming Encounters Date Type Department Care Team (Late st Contact Info) Description 11/25/2024 1:50 PM EDT Routine [facility] [address] [place] [address] Doc Thomas DO [address] [place] [address] Scheduled Orders Name Type Priority Associated Diagnoses Order Schedule CBC Lab Routine Diabetes mellitus screening Expected: 10/28/2024 (Approximate), Expires: 10/28/2025 Glucose tolerance, 1 hour Lab Routine Diabetes mellitus screening Expected: 10/28/2024 (Approximate), Expires: 10/28/2025 Pap Smear Pathology and Cytology Routine Well woman exam with routine gynecological exam Ordered: 10/28/2024 SURESWAB(R) ADVANCED VAGINITIS PLUS, TMA Pathology and Cytology Routine STD exposure Ordered: 10/28/2024 CHLAMYDIA TRACHOMATIS (GENITO/STI) Lab Routine STD exposure Ordered: 10/28/2024 Neisseria gonorrhea DNA probe, direct Lab Routine STD exposure Ordered: 10/28/2024 ECG 12 lead unit performed ECG Routine Heart palpitations Expected: 10/28/2024 (Approximate), Expires: 10/28/2025 Echocardiogram 2D complete Echocardiography Routine Heart palpitations Expected: 10/28/2024 (Approximate), Expires: 10/28/2026 documented as of this encounter Procedures Procedure Name Priority Date/Time Associated Diagnosis Comments POCT URINALYSIS DIPSTICK Routine 10/28/2024 2:43 PM EDT Second trimester ([facility]) documented in this encounter Results * (ABNORMAL) POCT urinalysis dipstick manually resulted (10/28/2024 2:43 PM EDT) Color, UA Yellow Clarity, UA Clear Glucose, UA Positive Negative - 2000(110) ++++ mg/dL Bilirubin, UA Positive Negative - 4(70) +++ mg/dL Ketones, UA Positive Negative - 160(16) ++++ mg/dL Spec Grav, UA 1.030 1 - 1.03 Blood, UA Negative Negative - 50 Randall/mcL pH, UA 6.0 5 - 9 Protein, UA Positive Negative - 1999(20) ++++ mg/dL Urobilinogen, UA 0.2 0.2 - 12 mg/dL Leukocytes, UA Negative Negative - 500+++ Rick/mcL Nitrite, UA Negative Negative - Positive Urine 10/28/2024 2:43 PM EDT Jessica Steen EXTRUDER OPERATOR POINT OF CARE TEST ENTER/EDIT ORDERABLES Final Result documented in this encounter Visit Diagnoses Diagnosis Second trimester ([facility]) state, incidental 23 weeks gestation of ([facility]) Diabetes mellitus screening Screening for diabetes mellitus STD exposure Well woman exam with routine gynecological exam Routine gynecological examination Heart palpitations Palpitations documented in this encounter Care Teams Fws Faculty Assistant Relationship Specialty Start Date End Date Danny Schuler MD [address] [address] PCP - General Family Medicine 07/24/22 Danny Schuler MD [address] [address] PCP - Ziggy Richard 06/16/20 documented as of this encounter
--- OUTSIDE RECORDS SUMMARY | 2024-11-03 15:05 | XMS_ITS | Encounter Summary ---
Author Organization [facility] Address [address] [place] [address] Care Team Providers Care Cognos Name Role Phone Danny Schuler MD Primary Care Provider [phone] Danny Schuler MD Unavailable [phone] Encounter Details Date Type Department Care Team (Late st Contact Info) Description 07/28/2024 Abstract [facility] [address] [place] [address] [place] [address] Janet Narayanan MA Social History Tobacco Use Types Packs/Day Years [...] week 12/11/2022 How often do you attend chur ch or restorationism services? More than 4 times per year 12/11/2022 Do you belong to any clubs o r organizations such as taoist groups, unions, fraternal or athletic groups, or [...] medical care, and heating? Somewhat hard 12/11/2022 [facility] of Occupat ional Health - Occupational Stress [...] place to sleep or slept in a assisted (including now)? No 12/11/2022 Education Answer Date [...] on file documented as of this encounter Plan of Treatment Upcoming Encounters Date Type Department Care Team (Late st Contact Info) Description 11/25/2024 1:50 PM EDT Routine [facility] [address] [place] [address] Doc Thomas DO [address] [facility] [place] [address] documented as of this encounter Visit Diagnoses Not on filedocumented in this encounter Care Teams Cognos Relationship Specialty Start Date End Date Danny Schuler MD [address] [facility] [address] [place] [address] PCP - General Family Medicine 07/24/22 Danny Schuler MD [address] [place] [address] PCP - [place] [employer] 06/16/20 documented as of this encounter
--- OUTSIDE RECORDS SUMMARY | 2024-11-03 15:05 | XMS_ITS | Encounter Summary ---
Author Organization [facility] Address [address] [place] [address] Care Team Providers Care Sales Service Rep Name Role Phone Danny Schuler MD Primary Care Provider [phone] Danny Schuler MD Unavailable [phone] Encounter Details Date Type Department Care Team (Late st Contact Info) Description 09/02/2023 Orders Only [facility] [place] [address] [facility] [address] [place] [address] Marcelle Espinosa DO [address] [facility] [place] [address] Social History Tobacco Use Types Packs/Day Years [...] 12/11/2022 How often do you attend chur or amish services? More than 4 times per year 12/11/2022 Do you belong to any clubs o r organizations such as pentecostal groups, unions, fraternal or athletic groups, or [...] medical care, and heating? Somewhat hard 12/11/2022 [facility] - Occupational Stress Questionnaire Answer Date [...] place to sleep or slept in a senior care (including now)? No 12/11/2022 Education Answer Date Recorded What is the highest level of school you have completed or the highest degree you have received? 11th grade 12/10/2022 Comments No Sex and Gender Information Value Date Recorded Sex Assigned at Female 12/10/2022 10:10 AM EDT Legal Sex Female 6:51 PM EDT Gender Identity Female 12/10/2022 10:10 AM EDT Sexual Orientation Not on file documented as of this encounter Plan of Treatment Upcoming Encounters Date Type Department Care Team (Late st Contact Info) Description 11/25/2024 1:50 PM EDT Routine [facility] [address] [facility] [place] [address] Doc Thomas DO [address] [facility] [place] [address] documented as of this encounter Procedures Procedure Name Priority Date/Time Associated Diagnosis Comments COLONOSCOPY Routine 09/02/2023 2:27 PM EDT documented in this encounter Results * Colonoscopy (09/02/2023 2:27 PM EDT) Anatomical Region Laterality Modality Endoscopy us Marcelle Espinosa DO ENDOSCOPY PROCEDURE ORDERABLES F inal Result documented in this encounter Visit Diagnoses Not on filedocumented in this encounter Care Teams Sales Service Rep Relationship Specialty Start Date End Date Danny Schuler MD [address] [address] PCP - General Family Medicine 07/24/22 Danny Schuler MD [address] [address] PCP - [employer]ig[employer] Richard 06/16/20 documented as of this encounter
--- OUTSIDE RECORDS SUMMARY | 2024-11-03 15:05 | XMS_ITS | Clinical Summary ---
Author Organization [facility] Address [address] [place] [address] Care Team Providers Care Charge Aide Name Role Phone Danny Payne MD Primary Care Provider Danny Payne MD Unavailable [phone] Allergies Active Allergy Reactions Criticality Noted Date Comments Azithromycin Hives 09/19/2020 Other Reaction(s): hives Latex Rash Low 09/19/2020 Other Reaction(s): Unknown Midodrine 12/10/2022 Other Reaction(s): body numbness Medications ondansetron ODT (Zofran-ODT) 4 MG disintegrating tabletIndications: Nausea and vomiting during ([facility]) Take 1 tablet (4 mg) by mouth every 6 (six) hours if needed for nausea or vomiting 30 tablet 3 5 025 Active ondansetron ODT (Zofran-ODT) 4 MG disintegrating tabletIndications: Nausea and vomiting during ([facility]) Take 1 tablet (4 mg) by mouth every 6 (six) hours if needed for nausea or vomiting 30 tablet 3 5 025 Discontin ued(Re[facility] er) Active Problems Problem Noted Date Diagnosed Date Abnormal bleeding in menstrual cycle 02/19/2024 Status post arthroscopic rec onstruction of anterior cruciate ligament of left knee using quadriceps tendon autograft 05/10/2023 Acute pain of left knee 04/22/2023 Chronic fatigue 12/10/2022 Cigarette smoker 12/10/2022 Cyst of ovary 12/10/2022 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 Hypotension determined by examination 12/10/2022 Juvenile osteochondrosis of tibial tuberosity Non morbid obesity due to excess calories 2022 Postural orthostatic tachycardia syndrome (POTS) 12/10/2022 Subclinical hypothyroidism 12/10/2022 Estimated Date of Delivery Comme nts Yes 02/20/2025 Based on last me nstrual period of 05/16/2024 Resolved Problems Problem Noted Date Diagnosed Date Resolved Date Overweight (BMI 25.0-29.9) 12/10/2022 1 04/21/2023 Encounters Date Type Department Care Team Description 11/03/2024 Telephone [facility] [address] [address] Azalea Schmitz MA 10/28/2024 2:30 PM EDT Routine [facility] [address] [place] [address] Pretty Chaidez PA Second trimester ([facility]); 23 weeks gestation of ([facility]); Diabetes mellitus screening; STD exposure; Well woman exam with routine gynecological exam; Heart palpitations 10/28/2024 Clinisync Result Encounter [facility] External Department Unsolicited Provider, Generic External Data 10/28/2024 External Result Encounter [facility]OM[facility] External Department Unsolicited Jessica Steen NP 10/28/2024 Bamboo flowsheet [facility] RODRIGUEZGY[facility]ristina [address] [place] [address] Pretty Chaidez PA 10/06/2024 Clinisync Result Encounter [facility] External Department Unsolicited Sintia Thomas DO 10/05/2024 Telephone [facility] [address] [place] [address] Azalea Schmitz MA 10/05/2024 Refill [facility] [address] [place] [address] Azalea Schmitz MA Nausea and vomiting during ([facility]) 09/30/2024 3:40 PM EDT Routine [facility] [place] [facility] [address] [place] [address] Sintia Thomas DO 19 weeks gestation of ([facility]); Second trimester ([facility]) 09/30/2024 2:30 PM EDT Ancillary Procedure [facility] [place] [address] Screening, , for anatomic survey ([facility]) 09/28/2024 Clinisync Result Encounter NOMS External Department Unsolicited Provider, [facility] External Data 09/02/2024 3:50 PM EDT Routine [facility] [address] [place] [address] Pretty Chaidez PA Second trimester ([facility]); 15 weeks gestation of ([facility]); Screening, , for anatomic survey ([facility]) 09/02/2024 Bamboo flowsheet [facility] [address] [place] [address] Pretty Chaidez PA 08/31/2024 Clinisync Result Encounter [facility] External Department Unsolicited Sintia Thomas DO 08/26/2024 Telephone [facility] [address] [place] [address] Janet Narayanan MA 08/05/2024 1:50 PM EDT Routine [facility] [address] [place] [address] Sintia Thomas DO First trimester ([facility]); 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 ([facility]); Gabby's disease 08/05/2024 Bamboo flowsheet [facility] [address] [place] [address] Sintia Thomas DO 08/05/2024 Travel from Last 3 Months Immunizations Immunization Administration Dates Next Due DTaP / HiB / IPV 1999,1999 DTaP / Hib 03/26/2000 Hep A, ped/adol, 2 dose 03/31/2012,08/31/2011 Hep B, Adolescent or Pediatric 09/11/2000,1999,1999 Hep B, adult 11/12/2016 Hib (HbOC) 09/11/2000 Hib / Hep B 09/11/2000 IPV 09/11/2000 MMR 09/11/2000 Meningococcal MCV4O 11/12/2016 Pneumococcal Conjugate PCV 7 03/26/2000 Tdap 08/31/2011 Varicella 08/31/2011 Family History Medical History Relation Name Comments No Known Problems Brother Hyperlipidemia Maternal Grandfather Hypertension Maternal Grandfather Cancer Maternal Grandmother Anaya Thyroid disease Mother POTS Mother's Brother POTS Mother's Sister Diabetes Paternal Grandfather . Hyperlipidemia Paternal Grandfather . Hypertension Paternal Grandfather . Relation Name Status Comments Brother 3 brothers Father Alive Maternal Grandfather Maternal Grandmother Anaya Mother Alive Mother's Brother Alive Mother's Sister Alive Other CABLE TESTER and Kavin POT S Paternal Grandfather . Alive Son Alive 1 son Social History Tobacco Use Types Packs/Day Years Used Date Smoking Tobacco: Some Days Cigarettes Smokeless Tobacco: Never Tobacco Cessation:Ready to Q uit: Not Asked; Counseling Given: Not Answered Alcohol Use Standard Drinks/Week Comments Not Currently [...] any clubs o r organizations such as yarsani groups, unions, fraternal or athletic groups, or [...] medical care, and heating? Somewhat hard 12/11/2022 [facility] - Occupational Stress [...] place to sleep or slept in a jail (including now)? No 12/11/2022 Education Answer Date [...] AM EDT Sexual Orientation Not on file Last Filed Vital Signs Vital Sign Reading Time Taken Comments Blood Pressure 130/80 10/28/2024 2:39 PM EDT Pulse 88 02/19/2024 3:26 PM EST Temperature 36.4 C (97.5 F) 05/03/2023 11:22 AM EST Respiratory Rate - - Oxygen Saturation 98% 02/19/2024 3:26 PM EST Inhaled Oxygen Concentration - - Weight 75.3 kg (166 lb) 10/28/2024 2:39 PM EDT Height 162.6 cm (5' 4 ) 02/26/2024 3:41 PM EST Body Mass Index 28.49 02/26/2024 3:41 PM EST Plan of Treatment Upcoming Encounters Date Type Department Care Team (Late st Contact Info) Description 11/25/2024 1:50 PM EDT Routine [facility] [address] [place] [address] WilliamSintia leiva, DO [address] [address] Health Maintenance Due Date Last Done Comments Influenza Vaccine (#1) 2024 Procedures Procedure Name Priority Date/Time Associated Diagnosis Comments RECURRENT VAGINITIS (HTRX) Routine 10/28/2024 4:48 PM EDT POCT URINALYSIS DIPSTICK Routine 10/28/2024 2:43 PM EDT Second trimester ([facility]) IGP,APTIMA HPV,AGE GDLN Routine 10/28/2024 2:25 PM EDT US OB CERVICAL LENGTH 10/06/2024 2:26 PM EDT POCT URINALYSIS DIPSTICK Routine 09/30/2024 3:31 PM EDT 19 weeks gestation of ([facility]) Second trimester ([facility]) US OB 14+ WEEKS ANATOMY SCAN Routine 09/30/2024 3:22 PM EDT Screening, , for anatomic survey ([facility]) ALL THYROID STIM HORMONE Routine 09/28/2024 3:58 PM EDT POCT URINALYSIS DIPSTICK Routine 09/02/2024 4:18 PM EDT Second trimester ([facility]) ALL THYROID STIM HORMONE Routine 08/31/2024 3:56 PM EDT POCT URINALYSIS DIPSTICK Routine 08/05/2024 2:33 PM EDT First trimester ([facility]) from Last 3 Months Results * RECURRENT VAGINITIS (HTRX) (10/28/2024 4:48 PM EDT) ATOPOBIUM VAGINAE 0 19.961 - 24.689 ppm 10/30/2024 7:27 AM EDT [facility] ATOPOBIUM VAGINAE Not Detected 19.961 - 24.689 ppm 10/30/2024 7:27 AM EDT [facility] BVAB 2,3 (BACTERIAL VAGINOSIS ASSOCIATED BACTERIA 2, 3); MOBILUNCUS SPP 0 19.961 - 24.689 ppm 10/30/2024 7:27 AM EDT [facility] BVAB 2,3 (BACTERIAL VAGINOSIS ASSOCIATED BACTERIA 2, 3); MOBILUNCUS SPP Not Detected 19.961 - 24.689 ppm 10/30/2024 7:27 AM EDT [facility] RICKEY ALBICANS, PARAPSILOSIS, TROPICALIS 0 23.000 - 30.347 ppm 10/30/2024 7:27 AM EDT [facility] RIKCEY ALBICANS, PARAPSILOSIS, TROPICALIS Not Detected 23.000 - 30.347 ppm 10/30/2024 7:27 AM EDT [facility] RICKEY GLABRATA 0 23.000 - 31.618 ppm 10/30/2024 7:27 AM EDT [facility] RICKEY GLABRATA Not Detected 23.000 - 31.618 ppm 10/30/2024 7:27 AM EDT [facility] RICKEY KRUSEI 0 23.000 - 30.873 ppm 10/30/2024 7:27 AM EDT [facility] RICKEY KRUSEI Not Detected 23.000 - 30.873 ppm 10/30/2024 7:27 AM EDT [facility] CHLAMYDIA TRACHOMATIS 0 23.000 - 31.586 ppm 10/30/2024 7:27 AM EDT [facility] CHLAMYDIA TRACHOMATIS Not Detected 23.000 - 31.586 ppm 10/30/2024 7:27 AM EDT [facility] GARDNERELLA VAGINALIS 0 19.961 - 24.689 ppm 10/30/2024 7:27 AM EDT [facility] GARDNERELLA VAGINALIS Not Detected 19.961 - 24.689 ppm 10/30/2024 7:27 AM EDT [facility] ANGISPHAERA (TYPES 1, 2) 0 19.961 - 24.689 ppm 10/30/2024 7:27 AM EDT [facility] BRENDENHAERA (TYPES 1, 2) Not Detected 19.961 - 24.689 ppm 10/30/2024 7:27 AM EDT [facility] NEISSERIA GONORRHOEAE 0 23.000 - 32.587 ppm 10/30/2024 7:27 AM EDT [facility] NEISSERIA GONORRHOEAE Not Detected 23.000 - 32.587 ppm 10/30/2024 7:27 AM EDT [facility] TRICHOMONAS VAGINALIS 0 23.000 - 31.995 ppm 10/30/2024 7:27 AM EDT [facility] TRICHOMONAS VAGINALIS Not Detected 23.000 - 31.995 ppm 10/30/2024 7:27 AM EDT [facility] MYCOPLASMA GENITALIUM 0 19.961 - 24.689 ppm 10/30/2024 7:27 AM EDT [facility] MYCOPLASMA GENITALIUM Not Detected 19.961 - 24.689 ppm 10/30/2024 7:27 AM EDT [facility] Tissue 10/28/2024 4:48 PM EDT 10/30/2024 2:18 AM EDT us Jessica Steen NP LAB BLOOD ORDERABLES Final Re sult [facility] [address] [address] * (ABNORMAL) POCT urinalysis dipstick manually resulted (10/28/2024 2:43 PM EDT) Only the most recent of4 resultswithin the time period is included. Color, UA Yellow Clarity, UA Clear Glucose, UA Positive Negative - 2000(110) ++++ mg/dL Bilirubin, UA Positive Negative - 4(70) +++ mg/dL Ketones, UA Positive Negative - 160(16) ++++ mg/dL Spec Grav, UA 1.030 1 - 1.03 Blood, UA Negative Negative - 50 Randall/mcL pH, UA 6.0 5 - 9 Protein, UA Positive Negative - 2000(20) ++++ mg/dL Urobilinogen, UA 0.2 0.2 - 12 mg/dL Leukocytes, UA Negative Negative - 500+++ Rick/mcL Nitrite, UA Negative Negative - Positive Urine 10/28/2024 2:43 PM EDT Jessica Steen NP POINT OF CARE TEST ENTER/EDIT ORDERABLES Final Result * IGP,APTIMA HPV,AGE GDLN (10/28/2024 2:25 PM EDT) AGE GDLN ACOG TESTING Note . [facility] Comment: TESTS RESULT FLAG UNITS REF RANGE LAB Clinician Provided Cytology Information Source.............Endocervix No. of containers..01 ThinPrep Vial Age Algo ACOG Yaa... -15 04 FLAG LEGEND: L-Low Normal,H-High Normal,LL-Alert Low,HH-Alert High <-Panic Low,>-Panic High,A-Abnormal,AA-Critical Abnormal Performed at: 01 =G [facility] [address] [place] [address] Ludy Hector MD, IGP, RFX APTIMA HPV ASCU Note . [facility] Comment: TESTS RESULT FLAG UNITS REF RANGE LAB DIAGNOSIS: 02 NEGATIVE FOR INTRAEPITHELIAL LESION OR MALIGNANCY. THIS SPECIMEN WAS RESCREENED PART OF OUR INSPECTOR CHIEF PROGRAM. Specimen adequacy: 02 Satisfactory for evaluation. No endocervical component is identified. Performed by: 02 Brionna Mello, Social Media Coordinator ([facility]) QC reviewed by: 02 Polina Simons, Social Media Coordinator . 02 Note: Note 02 The Pap smear is a screening test designed to aid in the detection of premalignant and malignant conditions of the uterine cervix. It is not a diagnostic procedure and should not be used as the sole means of detecting cervical cancer. Both false-positive and false-negative reports do occur. Test Methodology: Note 02 This liquid based ThinPrep(R) pap test was screened with the use of an image guided system. . 02 The HPV DNA reflex criteria were not met with this specimen result therefore, no HPV testing was performed. FLAG LEGEND: L-Low Normal,H-High Normal,LL-Alert Low,HH-Alert High <-Panic Low,>-Panic High,A-Abnormal,AA-Critical Abnormal Performed at: 02 WB [facility] [address] [facility] [place] [address] Ludy Hector MD, Performed at: =G - [facility] [address] [id number] Engineer Operations And Maintenance: Ludy Hector MD, Phone: [phone] Performed at: - [facility] [address] [id number] [employer] Operations And Maintenance: Ludy Hector MD, Phone: [phone] 10/28/2024 2:25 PM EDT 10/28/2024 9:48 PM EDT Narrative [facility] - 11/03/2024 11:08 AM EDT BRUSH-SPATULA ENDOCERVIX us Pretty ARELLANO LAB BLOOD ORDERABLES Final Resul t [facility] * US OB CERVICAL LENGTH (10/06/2024 2:26 PM EDT) Anatomical Region Laterality Modality Other 10/06/2024 2:26 PM EDT Narrative 10/06/2024 2:28 [place] [address] Ultrasound Report Signed Patient: ALETA CASTRO MR#: [id number] : 2000 Acct:[id number] Age/Sex: 24 / F ADM Date: 10/06/24 Loc: US Attending Dr: Sintia Thomas D.O. Ordering Physician: Sintia Thomas D.O. Date of Service: 10/06/24 Procedure(s): US OB cervical length Accession Number(s): [id number] cc: Sintia Thomas D.O.; DANNY PAYNE [address] [address] Patient Name: ALETA CASTRO MRN: [id number] date: 2000 Sex: F Assigned Patient Location: US Current Patient Location: US Accession/Order Number: [id number] Exam Date: 10/06/2024 14:25 Report Date: 10/06/2024 14:26 At the request of: SINTIA THOMAS DO Procedure: US OB cervical length Cervical length ultrasound. Reason for exam: Abdominal cramping. TECHNIQUE: Transvaginal imaging of the gravid uterus was obtained. FINDINGS: Cervical length measures 4.53 cm without evidence of funneling. heart rate 158 bpm. US/US OB cervical length Impression: Normal cervical length without evidence of funneling. Impression dictated by: Jermaine Nguyễn Jr., D.O. 10/06/2024 2:26 PM Dictation Location: [place] [address] Electronically authenticated by: [id number] Y Date: 10/06/2024 14:26 Dictated By: Jermaine Nguyễn M.D. Signed By: 10/06/24 1428 DD/ 25 TD/TT: Station Jailer: Procedure Note Radiology, Radiologist, MD - 10/06/2024 [place] [address] Ultrasound Report Signed Patient: ALETA CASTRO NMR#: [id number] : 2000Acct:[id number] Age/Sex: M Date: 10/06/24 Loc: US Attending Dr: Sintia Thomas D.O. Ordering Physician: Sintia Thomas D.O. Date of Service: 10/06/24 Procedure(s): US OB cervical length Accession Number(s): [id number] cc: Sintia Thomas D.O.; DANNY PAYNE [place] [id number] Patient Name: ALETA CASTRO MRN: [id number] date: 2000 Sex: F Assigned Patient Location: US Current Patient Location: US Accession/Order Number: [id number] Exam Date: 10/06/2024 14:25 Report Date: 10/06/2024 14:26 At the request of: SINTIA THOMAS DO Procedure: US OB cervical length Cervical length ultrasound. Reason for exam: Abdominal cramping. TECHNIQUE: Transvaginal imaging of the gravid uterus was obtained. FINDINGS: Cervical length measures 4.53 cm without evidence of funneling. heart rate 158 bpm. US/US OB cervical length Impression: Normal cervical length without evidence of funneling. Impression dictated by: Jermaine Nguyễn Jr., D.O. 10/06/2024 2:26 PM Dictation Location: [place] [address] Electronically authenticated by: [id number] Y Date: 4:26 Dictated By: Jermaine Nguyễn M.D. Signed By:10/06/24 1428 DD/ 1426 TD/TT: Station Jailer: us Sintia William DO [facility] Final Result * US OB 14+ weeks anatomy scan (09/30/2024 3:22 PM EDT) Anatomical Region Laterality Modality Body Ultrasound 09/30/2024 7:57 PM EDT Impressions 10/01/2024 9:11 AM EDT Single, live intrauterine , current sonographic age of 20 weeks and 0 days, with an estimated date of delivery of February 17, 2025 * Estimated Weight (g) by Percentile is based upon an accurate estimated age based on last menstrual period. TRANSCRIBED BY: ELECTRONICALLY SIGNED BY: Jermaine Beard MD Narrative 10/01/2024 9:11 AM EDT FINDINGS: A single, live intrauterine is present [...] 45 +/-52 grams ( pound, 12 ounces). Procedure Note Jermaine Beard MD - 10/01/2024 FINDINGS: A single, live intrauterine is present with normal cardiacrate of 146 beats per minute. Normal activity and amniotic fluidvolume. Morphology is grossly normal. The cervix is long and closed,4.1cm. The placenta is posterior inferior aspect 4.0 cm from the closedinternal cervical os. The current sonographic age is 20 weeks and 0 days,based on the following measurements: BPD 4.5 cm (19 weeks, 4 days) Head Circumference 17.1cm (19 weeks,5 days) Abdominal Circumference 15.2cm (20 weeks, 3 days) Femur Length 3.3cm ( 20weeks, 3 days) Presentation Cephalic Placenta Posterior Weight (g) by Percentile 85.3 % * These measurements result in an estimated date of delivery of February The current estimated weight is 3 45 +/-52 grams ( pound,12 ounces). IMPRESSION: Single, live intrauterine , current sonographic age of 20 weeksand 0 days, with an estimated date of delivery of February 17, 2025 * Estimated Weight (g) by Percentile is based upon an accurateestimated age based on last menstrual period. TRANSCRIBED BY: ELECTRONICALLY SIGNED BY: Jermaine Beard MD Pretty ARELLANO IMG OB US PROCEDURES Final Resul t * ALL THYROID STIM HORMONE (09/28/2024 3:58 PM EDT) Only the most recent of2 resultswithin the time period is included. THYROID STIMULATING HORMONE 0.836 0.358 - 3.740 uIU/mL [facility] 09/28/2024 3:58 PM EDT 09/28/2024 4:00 PM EDT Narrative [facility] - 09/28/2024 5:06 PM EDT us Sintia Thomas DO [facility] Final Result [facility] Mon[facility] Insurance BS Care Teams Charge Aide Relationship Specialty Start Date End Date Danny Payne MD [address] [place] [address] [address] PCP - General Family Medicine 07/24/22 Danny Payne MD [address] [place] [address] [address] PCP - Ziggy Richard 06/16/20
--- OUTSIDE RECORDS SUMMARY | 2024-11-03 15:05 | XMS_ITS | Encounter Summary ---
Author Organization [facility] Address [address] [place] [address] Care Team Providers Care Welding Teacher Name Role Phone Danny Schuler MD Primary Care Provider Danny Schuler MD Unavailable [phone] Encounter Details Date Type Department Care Team (Late st Contact Info) Description 02/09/2023 Abstract [facility] [address] [place] [address] Bisi Richard NP Social History Tobacco Use Types Packs/Day Years Used Date Smoking Tobacco: Some Days Smokeless Tobacco: Never Tobacco Cessation:Ready to Q [...] often do you attend chur ch or evangelical services? More than 4 times per year 12/11/2022 Do you belong to any clubs o r organizations such as religion groups, unions, fraternal or athletic groups, or [...] medical care, and heating? Somewhat hard 12/11/2022 [facility] - Occupational [...] place to sleep or slept in a fci (including now)? No 12/11/2022 Education Answer Date [...] 11/25/2024 1:50 PM EDT Routine [facility] [address] [place] [address] Doc Thomas DO [address] [facility] [place] [address] documented as of this encounter Visit Diagnoses Not on filedocumented in this encounter Care Teams Welding Teacher Relationship Specialty Start Date End Date Danny Schuler MD [address] [place] [address] PCP - General Family Medicine 07/24/22 Danny Schuler MD [address] [address] PCP - [place] [employer] 06/16/20 documented as of this encounter
--- OUTSIDE RECORDS SUMMARY | 2024-11-03 15:05 | XMS_ITS | Encounter Summary ---
Author Organization [facility] Address [address] [place] [address] Care Team Providers Care Advertising Director Name Role Phone Danny Schuler MD Primary Care Provider Danny Schuler MD Unavailable [phone] Encounter Details Date Type Department Care Team (Late st Contact Info) Description 04/25/2023 Abstract [facility] [address] [place] [address] Remy Rojas DO [address] [place] [address] Social History Tobacco Use Types Packs/Day Years Used Date Smoking Tobacco: Some Days Smokeless Tobacco: Never Alcohol Use Standard Drinks/Week [...] often do you attend chur ch or mandaen services? More than 4 times per year 12/11/2022 Do you belong to any clubs o r organizations such as druze groups, unions, fraternal or athletic groups, or [...] medical care, and heating? Somewhat hard 12/11/2022 [facility] Occupational Stress Questionnaire Answer Date [...] place to sleep or slept in a care home (including now)? No 12/11/2022 Education Answer Date [...] 11/25/2024 1:50 PM EDT Routine [facility] [address] [place] [address] Doc Thomas DO [address] [facility] [place] [address] documented as of this encounter Visit Diagnoses Not on filedocumented in this encounter Care Teams Advertising Director Relationship Specialty Start Date End Date Danny Schuler MD [address] [facility] [address] [place] [address] PCP - General Family Medicine 07/24/22 Danny Schuler MD [address] [address] PCP - [place] [employer] 06/16/20 documented as of this encounter
--- OUTSIDE RECORDS SUMMARY | 2024-11-03 15:05 | XMS_ITS | Encounter Summary ---
Author Organization [facility] Address [address] [place] [address] Care Team Providers Care Alarm Adjuster Name Role Phone Danny Schuler MD Primary Care Provider Danny Schuler MD Unavailable [phone] Encounter Details Date Type Department Care Team (Late st Contact Info) Description 10/28/2024 Clinisync Result Encounter [facility] External Department Unsolicited Provider, Generic External Data Social History Tobacco Use Types Packs/Day Years [...] How often do you attend chur or sabianism services? More than 4 times per year 12/11/2022 Do you belong to any clubs o r organizations such as mandaeism groups, unions, fraternal or athletic groups, or [...] medical care, and heating? Somewhat hard 12/11/2022 [facility] of Occupat ional Health - Occupational Stress [...] place to sleep or slept in a prison (including now)? No 12/11/2022 Education Answer Date [...] PM EDT Routine [facility] [address] [address] Doc Thomas DO [address] [facility] [place] [address] documented as of this encounter Procedures Procedure Name Priority Date/Time Associated Diagnosis Comments IGP,APTIMA HPV,AGE GDLN Routine 10/28/2024 2:25 PM EDT documented in this encounter Results * IGP,APTIMA HPV,AGE GDLN (10/28/2024 2:25 PM EDT) AGE GDLN ACOG TESTING Note . [facility] Comment: TESTS RESULT FLAG UNITS REF RANGE LAB Clinician Provided Cytology Information Source.............Endocervix No. of containers..01 ThinPrep Vial Age Amaris GUERRERO Yaa... FLAG LEGEND: L-Low Normal,H-High Normal,LL-Alert Low,HH-Alert High <-Panic Low,>-Panic High,A-Abnormal,AA-Critical Abnormal Performed at: 01 =[facility] [address] [place] [address] Ludy Hector MD, IGP, RFX APTIMA HPV ASCU Note . [facility] Comment: TESTS RESULT FLAG UNITS REF RANGE LAB DIAGNOSIS: 02 NEGATIVE FOR INTRAEPITHELIAL LESION OR MALIGNANCY. THIS SPECIMEN WAS RESCREENED PART OF OUR CLINICAL NURSE SPECIALIST PROGRAM. Specimen adequacy: 02 Satisfactory for evaluation. No endocervical component is identified. Performed by: 02 Brionna Mello Route Agent ([facility]) QC reviewed by: 02 Polina Simons, Route Agent . 02 Note: Note 02 The Pap [...] <-Panic Low,>-Panic High,A-Abnormal,AA-Critical Abnormal Performed at: [address] [address] Ludy Hector MD, Performed at: = - [facility] [id number] Professor Of Religious Studies: Ludy Hector MD, Phone: [phone] Performed at: [facility] [address] [id number] Professor Of Religious Studies: Ludy Hector MD, Phone: [phone] 10/28/2024 2:25 PM EDT 10/28/2024 9:48 PM EDT Narrative [facility] - 11/03/2024 11:08 AM EDT BRUSH-SPATULA ENDOCERVIX Pretty [facility] LAB BLOOD ORDERABLES Final Resul t [facility] documented in this encounter Visit Diagnoses Not on filedocumented in this encounter Care Teams Alarm Adjuster Relationship Specialty Start Date End Date Danny Schuler MD [address] [place] [address] PCP - General Family Medicine 07/24/22 Danny Schuler MD [address] [place] [address] [address] [place] [address] PCP - [place] [employer] 06/16/20 documented as of this encounter
--- OUTSIDE RECORDS SUMMARY | 2024-11-03 15:05 | XMS_ITS | Encounter Summary ---
Author Organization [facility] Address [address] [place] [address] Care Team Providers Care Net Making Supervisor Name Role Phone Danny Schuler MD Primary Care Provider [phone] Danny Schuler MD Unavailable [phone] Encounter Details Date Type Department Care Team (Late st Contact Info) Description 07/29/2024 Abstract [facility] [address] [place] [address] Doc Thomas DO [address] [facility] [address] [place], [facility] Social History Tobacco Use Types Packs/Day Years [...] How often do you attend chur or yazdanism services? More than 4 times per year 12/11/2022 Do you belong to any clubs o r organizations such as christian groups, unions, fraternal or athletic groups, or [...] medical care, and heating? Somewhat hard 12/11/2022 [facility] - [facility]ational Stress Questionnaire Answer Date [...] PM EDT Routine [facility] [address] [facility] [place] [address] Doc Thomas DO [address] [facility] [place] [address] documented as of this encounter Visit Diagnoses Not on filedocumented in this encounter Care Teams Net Making Supervisor Relationship Specialty Start Date End Date Danny Schuler MD [address] [place] [address] PCP - General Family Medicine 07/24/22 Danny Schuler MD [address] [place] [address] PCP - [employer] 06/16/20 documented as of this encounter
--- OUTSIDE RECORDS SUMMARY | 2024-11-03 15:06 | XMS_ITS | Encounter Summary ---
Author Organization [facility] Address [address] [place] [address] Care Team Providers Care Mechanical Manufacturing Engineer Name Role Phone Danny Schuler MD Primary Care Provider Danny Schuler MD Unavailable [phone] Encounter Details Date Type Department Care Team (Late st Contact Info) Description 11/03/2024 Telephone [facility] [address] [place] [address] Azalea Schmitz MA [address] [place] [address] Social History Tobacco Use Types Packs/Day Years [...] often do you attend chur ch or yarsanism services? More than 4 times per year 12/11/2022 Do you belong to any clubs o r organizations such as sikh groups, unions, fraternal or athletic groups, or [...] medical care, and heating? Somewhat hard 12/11/2022 [facility] of Occupat ional Health - [...] PM EDT Routine [facility] [address] [place] [address] Doc Thomas DO [address] [facility] [place] [address] documented as of this encounter Visit Diagnoses Diagnosis Heart palpitations Palpitations Gabby's disease Chronic lymphocytic thyroiditis documented in this encounter Care Teams Mechanical Manufacturing Engineer Relationship Specialty Start Date End Date Danny Schuler MD [address] [facility] 100 [place] [address] PCP - General Family Medicine 5/9/23 Danny Schuler MD [address] [place] [address] PCP - Ziggy Richard 06/16/20 documented as of this encounter
--- OUTSIDE RECORDS SUMMARY | 2024-11-03 15:06 | XMS_ITS | Encounter Summary ---
Author Organization [facility] Address [address] [place] [address] Care Team Providers Care Powder Cutting Operator Name Role Phone Danny Schuler MD Primary Care Provider [phone] Danny Schuler MD Unavailable [phone] Encounter Details Date Type Department Care Team (Late st Contact Info) Description 10/28/2024 Bamboo flowsheet KYE [place] OBGYKristina [address] [facility] [place] [address] Pretty Chaidez PA [address] [facility] [address] [place], [facility] Social History Tobacco Use Types Packs/Day [...] How often do you attend chur or restoration services? More than 4 times per year 12/11/2022 Do you belong to any clubs o r organizations such as sabianism groups, unions, fraternal or athletic groups, or [...] medical care, and heating? Somewhat hard 12/11/2022 [facility] of Occupat ionmt Health - Occupational Stress Questionnaire Answer Date [...] place to sleep or slept in a snf (including now)? No 12/11/2022 Education Answer Date [...] OBGYN [address] [facility] [place] [address] Doc Thomas DO [address] [facility] [place] [address] documented as of this encounter Visit Diagnoses Not on filedocumented in this encounter Care Teams Powder Cutting Operator Relationship Specialty Start Date End Date Danny Schuler MD [address] [place] [address] PCP - General Family Medicine 07/24/22 Danny Schuler MD [address] [place] [address] PCP - [employer] 06/16/20 documented as of this encounter
--- OUTSIDE RECORDS SUMMARY | 2024-11-03 15:06 | XMS_ITS | Encounter Summary ---
Author Organization [facility] Address [address] [place] [address] Care Team Providers Care Telescope Repairer Name Role Phone Danny Schuler MD Primary Care Provider Danny Schuler MD Unavailable [phone] Encounter Details Date Type Department Care Team (Late st Contact Info) Description 10/28/2024 External Result Encounter [facility] External Department Unsolicited Jessica Steen, [place] [address] [place] [address] [place] [address] Social History Tobacco Use Types Packs/Day Years [...] often do you attend chur ch or alevism services? More than 4 times per year 12/11/2022 Do you belong to any clubs o r organizations such as worship groups, unions, fraternal or athletic groups, or [...] medical care, and heating? Somewhat hard 12/11/2022 [facility] of Occupat ional Health - Occupational Stress [...] place to sleep or slept in a alf (including now)? No 12/11/2022 Education Answer Date [...] PM EDT Routine [facility] [address] [facility] [place] [address] Doc Thomas DO [address] [facility] [address] [place], [place] [id number] documented as of this encounter Procedures Procedure Name Priority Date/Time Associated Diagnosis Comments RECURRENT VAGINITIS (HTRX) Routine 10/28/2024 4:48 PM EDT documented in this encounter Results * RECURRENT VAGINITIS (HTRX) (10/28/2024 4:48 PM EDT) ATOPOBIUM VAGINAE 0 19.961 - 24.689 ppm 10/30/2024 7:27 AM EDT [facility] ATOPOBIUM VAGINAE Not Detected 19.961 - 24.689 ppm 10/30/2024 7:27 AM EDT [facility] BVAB 2,3 (BACTERIAL VAGINOSIS ASSOCIATED BACTERIA 2, 3); MOBILUNCUS SPP 0 19.961 - 24.689 ppm 10/30/2024 7:27 AM EDT [facility] BVAB 2,3 (BACTERIAL VAGINOSIS ASSOCIATED BACTERIA 2, 3); MOBILUNCUS SPP Not Detected 19.961 - 24.689 ppm 10/30/2024 7:27 AM EDT [facility] RICKEY ALBICANS, PARAPSILOSIS, TROPICALIS 0 23.000 - 30.347 ppm 10/30/2024 7:27 AM EDT [facility] RICKEY ALBICANS, PARAPSILOSIS, TROPICALIS Not Detected 23.000 - 30.347 ppm 10/30/2024 7:27 AM EDT [facility] RICKEY GLABRATA 0 23.000 - 31.618 ppm 10/30/2024 7:27 AM EDT [facility] RICKEY GLABRATA Not Detected 23.000 - 31.618 ppm 10/30/2024 7:27 AM EDT [facility] RICKEY KRUSEI 0 23.000 - 30.873 ppm 10/30/2024 7:27 AM EDT [facility] RICKEY KRUSEI Not Detected 23.000 - 30.873 ppm 10/30/2024 7:27 AM EDT [facility] CHLAMYDIA TRACHOMATIS 0 23.000 - 31.586 ppm 10/30/2024 7:27 AM EDT [facility] CHLAMYDIA TRACHOMATIS Not Detected 23.000 - 31.586 ppm 10/30/2024 7:27 AM EDT [facility] GARDNERELLA VAGINALIS 0 19.961 - 24.689 ppm 10/30/2024 7:27 AM EDT [facility] GARDNERELLA VAGINALIS Not Detected 19.961 - 24.689 ppm 10/30/2024 7:27 AM EDT [facility] MEGASPHAERA (TYPES 1, 2) 0 19.961 - 24.689 ppm 10/30/2024 7:27 AM EDT [facility] MEGASPHAERA (TYPES 1, 2) Not Detected 19.961 - 24.689 ppm 10/30/2024 7:27 AM EDT [facility] NEISSERIA GONORRHOEAE 0 23.000 - 32.587 ppm 10/30/2024 7:27 AM EDT [facility] NEISSERIA GONORRHOEAE Not Detected 23.000 - 32.587 ppm 10/30/2024 7:27 AM EDT [facility] TRICHOMONAS VAGINALIS 0 23.000 - 31.995 ppm 10/30/2024 7:27 AM EDT [facility] TRICHOMONAS VAGINALIS Not Detected 23.000 - 31.995 ppm 10/30/2024 7:27 AM EDT [facility] MYCOPLASMA GENITALIUM 0 19.961 - 24.689 ppm 10/30/2024 7:27 AM EDT [facility] MYCOPLASMA GENITALIUM Not Detected 19.961 - 24.689 ppm 10/30/2024 7:27 AM EDT [facility] Tissue 10/28/2024 4:48 PM EDT 10/30/2024 2:18 AM EDT us Jessica Steen [facility] BLOOD ORDERABLES Final Re sult [facility] [address] [id number] documented in this encounter Visit Diagnoses Not on filedocumented in this encounter Care Teams Telescope Repairer Relationship Specialty Start Date End Date Danny Schuler MD [address] [place] [address] [place] [address] PCP - General Family Medicine 07/24/22 Danny Schuler MD [address] [place] [address] PCP - Ziggy Richard 06/16/20 documented as of this encounter
[2024-11-03 16:09] LABS: Hematocrit 31.2 % (36.0-48.0); Hemoglobin 10.8 g/dL (12.0-16.0); Immature Granulocytes Abs Auto 0.01 10^3/uL (0.00-0.03); Immature Granulocytes Pct Auto 0.2 % (0.0-0.5); Lymphocytes Absolute Auto 1.0 10^3/uL (1.2-3.8); Mean Corpuscular HGB Conc 34.6 g/dL (29.9-35.2); Mean Corpuscular Hemoglobin 32.3 pg (26.7-34.0); Mean Corpuscular Volume 93.4 fL (81.0-99.0); Platelet Count 187 10^3/uL (150-450); Red Blood Count 3.34 10^6/uL (4.20-5.40); White Blood Count 6.6 10^3/uL (4.0-11.0)
--- OUTSIDE RECORDS SUMMARY | 2024-11-03 16:13 | XMS_ITS | CCD ---
Author Organization [facility] CliniSywa Care Team Providers Care Chairman Name Role Phone BECERRIL, DAVID P Unavailable [...] able Rosalie Payne MD Primary Care Provider Pocobed, Myron Washburn Admitting Unavailable PocosyMron Referring Unavailable Pocos, Myron Washburn Attending Unavailable Pocos, Myron Washburn Referring Unavailable Pocos, Myron Washburn Attending Unavailable Myron Marroquin Admitting Unavailable MD Rosalie Payne Primary Care Provider DO Marcelle Patel Attending Provider Marcelle Patel Attending Unavailable Marcelle Patel Admitting Unavailable Rosalie Payne Primary Care Unavailable Rosalie Payne MD Primary Care Provider Rosalie Payne MD Primary Care Provider Rosalie Payne MD Unavailable [phone] DOC THOMAS Attending Unavailable PRETTY MCKEON Attending Unavailable WILLIAMDOC YOUNGBLOOD Attending Unavailable PRETTY MCKEON Attending Unavailable NEREYDA VIEIRA Attending Unavailable POCMYRON CLAY Referring Unavailable JENNIFER DOZIER Attending Unavailable POCMYRON CLAY Referring Unavailable NEREYDA VIEIRA Attending Unavailable POCMYRON CLAY Referring Unavailable KELVIN ONEAL Attending Unavailable KELVIN ONEAL Referring Unavailable PEPE KIRBY Attending Unavailable DANIEL, MYRON Washburn Referring Unavailable NEREYDA VIEIRA Attending Unavailable DANIEL, MYRON Washburn Referring Unavailable PEPE KIRBY Attending Unavailable POCMYRON CLAY Referring Unavailable ROSALIE PAYNE Attending Unavailable POCOBED, MYRON Washburn Attending Unavailable Allergies Allergy Classification Reported Allergen(s) Allergy Type Date of Onset Reaction(s) Facility Latex (1 source) Latex Substance Allergy 1 [facility] Macrolides (antibiotic) (1 source) Azithromycin Drug Allergy 1 [facility] (20 sources) Azithromycin; Translations: [azithromycin] Drug Allergy 1 [facility] (10 sources) Latex; Translations: [Latex] Propensity to adverse reactions to drug 1 [facility] (1 source) Azithromycin Drug Allergy 0 [facility] Repository (1 source) natural latex rubber Drug allergy (disorder) [facility] Repository (2 sources) Banana Extract; Translations: [Banana] Drug Allergy Vomiting (disorder) [facility] (20 sources) Midodrine; Translations: [midodrine] Drug Allergy 3 [facility] (20 sources) Latex Allergy to substance 1 [facility] (1 source) Azithromycin Drug Allergy [address] [facility] Repository (1 source) Latex Drug allergy (disorder) [address] [facility] Repository Medications Current Medications Medication Drug Class(es) Dates Sig (Normalized) Sig (Original) [id number] 200 actuat albuterol 0.09 mg/actuat metered dose [...] Active ondansetron 4 mg disintegrating oral tablet (17 sources) Serotonin-3 Receptor Antagonist Start: 10-05-2024 End: 11-04-2024 take 1 tablet by mouth every six hours for nausea ondansetron ODT (Zofran-ODT) 4 MG disintegrating tablet Indications: Nausea and vomiting during ([facility]) Take 1 tablet (4 mg) by mouth every 6 (six) hours if needed for nausea or vomiting 30 tablet 3 10/05/2024 11/04/2024 Active Start: 08-26-2024 End: 09-30-2024 take 1 tablet by mouth every six hours for nausea ondansetron ODT (Zofran-ODT) 4 MG disintegrating tablet Indications: Nausea and vomiting during ([facility]) Take 1 tablet (4 mg) by mouth [...] mg by mouth daily 0 Active Citalopram [place] bromide Active clotrimazole 10 mg oral lozenge (3 sources) Azole Antifungal Start: 05-11-2021 Clotrimazole 10 MG 1 wenceslao Mouth/Throat Three times a day for 7 day(s) Apr, Not-Taking/PRN medroxyPROGESTERone (4 sources) Progestin Depo-Provera Not-Taking/PRN Depo-Provera Act nicolle metoclopramide 10 mg oral tablet (12 sources) Dopamine-2 Receptor Antagonist Start: 07-16-2024 End: 09-30-2024 metoclopramide (Reglan) 10 MG tablet Indications: Nausea/vomiting in ([facility]) Take 1 tablet (10 mg) by mouth [...] bone disease and musculoskeletal deformities (20 sources) Hurst Schlatter disease; 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 [facility] Comment on above: TESTS RESULT FLAG UN ITS REF RANGE LAB Clinician Provided Cytology Information Source.............Endocervix No. of containers..01 ThinPrep Vial Age Amaris Mon... FLAG LEGEND: L-Low Normal,H-High Normal,LL-Alert Low,HH-Alert High <-Panic Low,>-Panic High,A-Abnormal,AA-Critical Abnormal Performed at: 01 =[address] [address] Ludy Hector MD, IGP, RFX APTIMA HPV ASCU Note . [facility] Comment on above: TESTS RESULT FLAG UN ITS REF RANGE LAB DIAGNOSIS: 02 NEGATIVE FOR INTRAEPITHELIAL LESION OR MALIGNANCY. THIS SPECIMEN WAS RESCREENED PART OF OUR [employer] PROGRAM. Specimen adequacy: 02 Satisfactory for evaluation. No endocervical component is identified. Performed by: 02 Brionna Mello, Wind Energy Mechanic ([facility]) QC reviewed by: 02 Polina Simons, Wind Energy Mechanic . 02 Note: Note 02 The Pap [...] <-Panic Low,>-Panic High,A-Abnormal,AA-Critical Abnormal Performed at: [address] [address] Ludy Hector MD, Performed at: =[facility] [id number] Buckle Gluer: Ludy Hector MD, Phone: [phone] Performed at: [address] [id number] Buckle Gluer: Ludy Hector MD, Phone: [phone] [facility]OC[facility] RECURRENT VAGINITIS (HTRX)on 10-30-[address] [facility] ATOPOBIUM VAGINAE Not detected [facility] BVAB 2,3 (BACTERIAL VAGINOSIS ASSOCIATED BACTERIA 2, 3); MOBILUNCUS SPP 0 [facility] BVAB 2,3 (BACTERIAL VAGINOSIS ASSOCIATED BACTERIA 2, 3); MOBILUNCUS SPP Not detected [facility] RICKEY ALBICANS, PARAPSILOSIS, TROPICALIS 0 [facility] RICKEY ALBICANS, PARAPSILOSIS, TROPICALIS Not detected [facility] RICKEY GLABRATA 0 [facility] RICKEY GLABRATA Not detected [facility] RICKEY KRUSEI [address] [facility] RICKEY KRUSEI Not detected [facility] CHLAMYDIA TRACHOMATIS 0 [facility] CHLAMYDIA TRACHOMATIS Not detected [facility] GARDNERELLA VAGINALIS [address] [facility] GARDNERELLA VAGINALIS Not detected [facility] MEGASPHAERA (TYPES 1, 2) 0 [facility] MEGASPHAERA (TYPES 1, 2) Not detected [facility] MYCOPLASMA GENITALIUM 0 [facility] MYCOPLASMA GENITALIUM Not detected [facility] NEISSERIA GONORRHOEAE 0 [facility] NEISSERIA GONORRHOEAE Not detected [facility] TRICHOMONAS VAGINALIS 0 [facility] TRICHOMONAS VAGINALIS Not detected [facility] Urinalysis macro (dipstick) panel (U)on 10-28-2024 Bilirubin, UA Positive Negative - 4(70) +++ mg/dL [facility] Blood, UA Negative Negative - 50 Randall/mcL [facility] Clarity, UA Clear [facility] Color, UA Yellow [facility] Glucose, UA Positive Negative - 1999(110) ++++ mg/dL [facility] Interpretation and review of laboratory results Abnormal [facility] Ketones, UA Positive Negative - 160(16) ++++ mg/dL [facility] Leukocytes, UA Negative Negative - 500+++ Rick/mcL [facility] Nitrite, UA Negative Negative - Positive [facility] pH, UA 6 5 - 9 [facility] Protein, UA Positive Negative - 1999(20) ++++ mg/dL [facility] Spec Grav, UA 1.03 1 - 1.03 [facility] Urobilinogen, UA 0.2 0.2 - 12 mg/dL [facility] US OB CERVICAL LENGTHon 09-16 [place] [address] Ultrasound Report Signed Patient: ALETA CASTRO MR#: [id number] : 2000 Acct:[id number] Age/Sex: 24 / F ADM Date: 10/06/24 Loc: US Attending Dr: Doc Thomas D.O. Ordering Physician: Doc Thomas D.O. Date of Service: 10/06/24 Procedure(s): US OB cervical length Accession Number(s): [id number] cc: Doc Thomas D.O.; ROSALIE PAYNE [address] [address] Patient Name: ALETA CASTRO MRN: [facility]:[id number] date: 2000 Sex: F Assigned Patient Location: US Current Patient Location: US Accession/Order Number: [id number] Exam Date: 10/06/2024 14:25 Report Date: 10/06/2024 [...] Jr., D.O. 10/06/2024 2:26 PM Dictation Location: [place] [address] Electronically authenticated by: [id number] Y Date: 10/06/2024 14:26 Dictated By: Jermaine Nguyễn M.D. Signed By: 10/06/24 1428 DD/ 1426 TD/TT: Volunteer Services Director: [facility] Radiology, Radiologi MD cecelia - 10/06/2024 [place] [address] Ultrasound Report Signed Patient: ALETA CASTRO MR#: [id number] : 2000 Acct:[id number] Age/Sex: 24 / F ADM Date: 10/06/24 Loc: US Attending Dr: Doc Thomas D.O. Ordering Physician: Doc Thomas D.O. Date of Service: 10/06/24 Procedure(s): US OB cervical length Accession Number(s): [id number] cc: Doc Thomas D.O.; ROSALIE PAYNE [place] [id number] Patient Name: ALETA CASTRO MRN: [facility]:[id number] date: 2000 Sex: F Assigned Patient Location: US Current Patient Location: US Accession/Order Number: [id number] Exam Date: 10/06/2024 14:25 Report Date: 10/06/2024 [...] Jr., D.O. 10/06/2024 2:26 PM Dictation Location: [employer] Electronically authenticated by: [id number] Y Date: 10/06/2024 14:26 Dictated By: Jermaine Nguyễn M.D. Signed By: 10/06/248 DD/ 25 TD/TT: Volunteer Services Director: [facility] Radiology Study observation (narrative) [facility] US OB CERVICAL LENGTHOrdered By: Radiologist Radiology on 10-06-2024 [facility] [employer] Work Phone: US OB 14+ WEEKS ANATOMY [...] UA Negative Negative - 4(70) +++ mg/dL [facility] Blood, UA Negative Negative - 50 Randall/mcL [facility] Clarity, UA Clear [facility] Color, UA Yellow [facility] Glucose, UA Negative Negative - 1999(110) ++++ mg/dL [facility] Interpretation and review of laboratory results Normal [facility] Ketones, UA Negative Negative - 160(16) ++++ mg/dL [facility] Leukocytes, UA Negative Negative - 500+++ Rick/mcL [facility] Nitrite, UA Negative Negative - Positive [facility] pH, UA 6 5 - 9 [facility] Protein, UA Negative Negative - 1999(20) ++++ mg/dL [facility] Spec Grav, UA 1.005 1 - 1.03 [facility] Urobilinogen, UA 1.0 0.2 - 12 mg/dL [facility] ALL THYROID STIM HORMONEon 0 09-28-2024 TSH Qn 0.836 m[IU]/L [facility]IN[facility] Urinalysis macro (dipstick) panel (U)on 09-02-2024 Bilirubin, UA Negative Negative - 4(70) +++ mg/dL [facility] Blood, UA Negative Negative - 50 Randall/mcL [facility] Clarity, UA Clear [facility] Color, UA Yellow [facility] Glucose, UA Negative Negative - 1999(110) ++++ mg/dL [facility] Interpretation and review of laboratory results Normal [facility] Ketones, UA Negative Negative - 160(16) ++++ mg/dL [facility] Leukocytes, UA Negative Negative - 500+++ Rick/mcL [facility] Nitrite, UA Negative Negative - Positive [facility] pH, UA 6 5 - 9 [facility] Protein, UA Negative Negative - 1999(20) ++++ mg/dL [facility] Spec Grav, UA 1.025 1 - 1.03 [facility] Urobilinogen, UA 0.2 0.2 - 12 mg/dL [facility] ALL THYROID STIM HORMONEon 0 08-31-2024 TSH Qn 1.413 m[IU]/L [facility] Urinalysis macro (dipstick) panel (U)on 08-05-2024 Bilirubin, UA Negative Negative - 4(70) +++ mg/dL [facility] Blood, UA Negative Negative - 50 Randall/mcL [facility] Clarity, UA Clear [facility] Color, UA Yellow [facility] Glucose, UA Negative Negative - 1999(110) ++++ mg/dL [facility] Interpretation and review of laboratory results Abnormal [facility] Ketones, UA Positive Negative - 160(16) ++++ mg/dL [facility] Comment on above: 40 Leukocytes, UA Trace Negative - 500+++ Rick/mcL [facility] Nitrite, UA Negative Negative - Positive [facility] pH, UA 6.5 5 - 9 [facility] Protein, UA Negative Negative - 1999(20) ++++ mg/dL [facility] Spec Grav, UA 1.025 1 - 1.03 [facility] Urobilinogen, UA 1.0 0.2 - 12 mg/dL [facility] BOX TESTon 07-18-2024 BOX TEST SENT OUT [facility] BOX1 [facility] BOX2 07/18/24 [facility] DRUG SCREEN RAPID (URINE )on 07-18-2024 AMPHETAMINE SCREEN URINE Negative NEGATIVE [facility] BARBITURATES SCREEN URINE Negative NEGATIVE [facility] BENZODIAZEPINES SCREEN URINE Negative NEGATIVE [facility] BUPRENORPHINE SCREEN URINE Negative NEGATIVE [facility] Comment on above: DRUG CLASS [...] 300 ng/mL CANNABINOID SCREEN URINE Negative NEGATIVE [facility] COCAINE SCREEN URINE Negative NEGATIVE [facility] METHADONE SCREEN URINE Negative NEGATIVE [facility] METHAMPHETAMINES SCREEN URINE Negative NEGATIVE [facility] OPIATE SCREEN URINE Negative NEGATIVE [facility] OXYCODONE SCREEN URINE Negative NEGATIVE [facility] PHENCYCLIDINE SCREEN URINE Negative NEGATIVE [facility] TRICYCLIC ANTIDEPRESSANT URINE Negative NEGATIVE [facility] HCG ( test) Ql (U)o n 07-16-2024 Interpretation and review of laboratory results Abnormal [facility] Preg Test, Ur Positive Negative [facility] US OB TRANSVAGINALon 025 US OB TRANSVAGINAL [...] II, MD, PHD at 19-Jul-2024 08:55:15 PM [facility] Normal Not Available Comment on above: Order Comment: US OB TRANSVAGINAL No LMP recorded. Urinalysis macro (dipstick) panel (U)on 07-16-2024 Bilirubin, UA Negative Negative - 4(70) +++ mg/dL [facility] Blood, UA Negative Negative - 50 Randall/mcL [facility] Clarity, UA Clear [facility] Color, UA Yellow [facility] Glucose, UA Negative Negative - 1999(110) ++++ mg/dL [facility] Interpretation and review of laboratory results Normal [facility] Ketones, UA Negative Negative - 160(16) ++++ mg/dL [facility] Leukocytes, UA Negative Negative - 500+++ Rick/mcL [facility] Nitrite, UA Negative Negative - Positive [facility] pH, UA 6.5 5 - 9 [facility] Protein, UA Negative Negative - 2000(20) ++++ mg/dL [facility] Spec Grav, UA 1.02 1 - 1.03 [facility] Urobilinogen, UA 1.0 0.2 - 12 mg/dL [facility] CBC W Auto Differential pane l (Bld)on 02-21-2024 Band form neutrophils (Bld) [#/Vol] CANCELED [facility] Comment on above: Result canceled by t ancillary. Band form neutrophils/100 WBC (Bld) CANCELED % [facility] Comment on above: Result canceled by t ancillary. Basophils (Bld) [#/Vol] 19 10*3/uL [facility] Basophils/100 WBC (Bld) 0.4 % [facility] Blasts (Bld) [#/Vol] CANCELED 0 cells/uL [facility] Comment on above: Result canceled by t ancillary. Blasts/100 WBC (Bld) CANCELED % [facility] Comment on above: Result canceled by t ancillary. Eosinophils (Bld) [#/Vol] 91 10*3/uL [facility] Eosinophils/100 WBC (Bld) 1.9 % [facility] Erythrocyte distribution width (RBC) [Ratio] 12.5 % 11.0 - 15.0 % [facility] Hematocrit (Bld) [Volume fraction] 38.9 % 35.0 - 45.0 % [facility] Hemoglobin (Bld) [Mass/Vol] 12.8 g/dL 11.7 - 15.5 g/dL [facility] Lymphocytes (Bld) [#/Vol] 1282 10*3/uL [facility] Lymphocytes/100 WBC (Bld) 26.7 % [facility] MCH (RBC) [Entitic mass] 30.6 pg 27.0 - 33.0 pg [facility] MCHC (RBC) [Mass/Vol] 32.9 g/dL 32.0 - 36.0 g/dL [facility] Comment on above: For adults, a slight decrease in the calculated MCHC value (in the range of 30 to 32 g/dL) is most likely not clinically significant; however, it should be interpreted with caution in correlation with other red cell parameters and the patient's clinical condition. MCV (RBC) [Entitic vol] 93.1 fL 80.0 - 100.0 fL [facility] Metamyelocytes (Bld) [#/Vol] CANCELED 0 cells/uL [facility] Comment on above: Result canceled by t he ancillary. Metamyelocytes/100 WBC (Bld) CANCELED % [facility] Comment on above: Result canceled by t he ancillary. Monocytes (Bld) [#/Vol] 422 10*3/uL [facility] Monocytes/100 WBC (Bld) 8.8 % [facility] Myelocytes (Bld) [#/Vol] CANCELED 0 cells/uL [facility] Comment on above: Result canceled by t he ancillary. Myelocytes/100 WBC (Bld) CANCELED % [facility] Comment on above: Result canceled by t he ancillary. Neutrophils (Bld) [#/Vol] 2986 10*3/uL [facility] Neutrophils/100 WBC (Bld) 62.2 % [facility] Nucleated RBC (Bld) [#/Vol] CANCELED 0 cells/uL [facility] Comment on above: Result canceled by t he ancillary. Nucleated RBC/100 WBC (Bld) [Ratio] CANCELED 0 /100 WBC [facility] Comment on above: Result canceled by t he ancillary. Platelet mean volume (Bld) [Entitic vol] 9.3 fL 7.5 - 12.5 fL [facility] Platelets (Bld) [#/Vol] 291 10*3/uL [facility] Promyelocytes (Bld) [#/Vol] CANCELED 0 cells/uL [facility] Comment on above: Result canceled by t he ancillary. Promyelocytes/100 WBC (Bld) CANCELED % [facility] Comment on above: Result canceled by t he ancillary. RBC (Bld) [#/Vol] 4.18 10*6/uL [facility] Service comment (Unsp spec) [Interp] CANCELED [facility] Comment on above: Result canceled by t ancillary. Variant lymphocytes/100 WBC (Bld) CANCELED 0 - 10 % [facility] Comment on above: Result canceled by t he ancillary. WBC (Bld) [#/Vol] 4.8 10*3/uL [facility] Iron and Iron binding capaci ty panelon 02-21-2024 Iron [Mass/Vol] 101 ug/dL [facility] Iron binding capacity [Mass/Vol] 340 [facility] Iron saturation [Mass fraction] 30 [facility] Laboratory - Chemistry and C hemistry - challengeon 02-21-2024 Albumin [Mass/Vol] 4.8 g/dL 3.6 - 5.1 g/dL [facility] Albumin/Globulin [Mass ratio] 1.8 {ratio} [facility] ALP [Catalytic activity/Vol] 65 U/L 31 - 125 U/L [facility] ALT [Catalytic activity/Vol] 16 U/L 6 - 29 U/L [facility] AST [Catalytic activity/Vol] 14 U/L 10 - 30 U/L [facility] Bilirubin [Mass/Vol] 0.6 mg/dL 0.2 - 1 .2 mg/dL [facility] Calcium [Mass/Vol] 9.3 mg/dL 8.6 - 10. 2 mg/dL [facility] Chloride [Moles/Vol] 107 mmol/L 98 - 11 0 mmol/L [facility] CO2 [Moles/Vol] 24 mmol/L 20 - 32 mmol/L [facility] Cortisol [Mass/Vol] 14.3 ug/dL mcg/dL [facility] Comment on above: Reference Range: For 8 a.m.(7-9 a.m.) Specimen: 4.0-22.0 Reference Range: For 4 p.m.(3-5 p.m.) Specimen: 3.0-17.0 * Please interpret above results accordingly * Creatinine [Mass/Vol] 0.71 mg/dL 0.50 - 0.96 mg/dL [facility] GFR/1.73 sq M.predicted among non-blacks MDRD (S/P/Bld) [Vol rate/Area] 122 mL/min/{1.73_m2} > OR = 60 mL/min/1.73m 2 [facility] Globulin (S) [Mass/Vol] 2.6 g/dL [facility] Glucose [Mass/Vol] 95 mg/dL 65 - 99 mg/dL [facility] Comment on above: Fasting reference interval Potassium [Moles/Vol] 4.2 mmol/L 3.5 - 5.3 mmol/L [facility] Protein [Mass/Vol] 7.4 g/dL 6.1 - 8.1 g/dL [facility] Sodium [Moles/Vol] 139 mmol/L 135 - 146 mmol/L [facility] Urea nitrogen [Mass/Vol] 16 mg/dL 7 - 25 mg/dL [facility] Urea nitrogen/Creatinine [Mass ratio] SEE NOTE: [facility] Comment on above: Not Reported: BUN an d Creatinine are within reference range. Laboratory - Serology - non- microon 02-21-2024 Thyroglobulin Ab Qn 153 [IU]/mL High < or = 1 IU/mL [facility] TPO Ab Qn 27 [IU]/mL High NINF [facility] No Panel Informationon 02-20 Interpretation and review of laboratory results Abnormal [facility] Performing Organizat ion Information Site ID: QTW Name: [facility] Address: [address] [place] [id number] Director: Urvashi Gtz [facility] Performing Organizat ion Information Site ID: QPT Name: [facility] Address: [address] [place] [address], [address] [place] [address] Director: Yonis Beck MD [facility] T3, FREE 02-05-2024 Free T3 [Mass/Vol] 3.6 pg/mL Normal 2.3-4.2 [facility] Comment on above: Performed By: #### 8 79, [id number], 86 #### [facility] [address] [employer] Sample [employer] Pattern Supervisor: Yonis Beck MD T4, FREEon 02-05-2024 Free T4 [Mass/Vol] 1.1 ng/dL Normal 0.8-1.8 [facility] Comment on above: Order Comment: FASTI NG:NO FASTING: NO Performed By: #### 8 99, [id number], 866 #### [facility] [address], [address] [place], [place] [id number] [employer] Supervisor: Yonis Beck MD TSHon 02-05-2024 TSH Qn 1.98 m[IU]/L Normal [facility] Comment on above: Result Comment: Refe rence Range > or = 20 Years 0.40-4.50 Ranges First trimester 0.26-2.66 Second trimester 0.55-2.73 Third trimester 0.43-2.91 Performed By: #### 8 99, [id number], 866 #### [facility] [address], [address] [place], [place] [id number] [employer] Pattern Supervisor: Yonis Beck MD HCG ( test) IA.rapi d Ql (U)Ordered By: Marcelle Patel on 09-02-2023 HCG ( test) Ql (U) Negative [facility] HCG,Urineon 09-02-2023 Beta HCG ( test) Ql (U) Negative Normal [facility] Comment on above: Result Comment: PERF ORMED BY: [place] [address] PATHOLOGIST BENEFIT SPECIALIST RAYMOND SUERO M.D. Performed By: #### U HCG #### [address] 09-02-2023 L Specimen: [id number] Received: 09/03/23 Status: FRANKLYN Yassine Num: [id number] Spec Type: Surgical Subm Dr: Marcelle Patel DO Tissues: A Small Intestine - Biopsy/Polyp (SMALL BOWEL BX) B GASTRIC FOR HP (GASTRIC HP) C Esophagus Biopsy (DISTAL ESOPHAGUS) D Esophagus Biopsy (PROXIMAL ESOPHAGUS) E Colon Biopsy (RANDOM RT COLON) F Colon Biopsy (RANDOM LT COLON) Procedures: HE/12, Gross/Micro L4/6, H PYLORI, IHC First AB Age/ Patient Sex Location Account Attending Physician Aleta Castro 23/F [id number] Marcelle Patel DO SPEC NUM: [id number] RECD: 09/03/23 STATUS: FRANKLYN GONZALES NUM: [id number] MIRIAM: 09/02/23- SUBM DR: Marcelle Patel DO ENTERED: 09/03/[address]: SPEC TYPE: Surgical DEPT: S ORDERED: [...] mild squamous acanthosis and occasionally associated Specimen: [id number] Received: 09/03/23 Status: FRANKLYN Gonzales Num: [id number] Spec Type: Surgical Subm Dr: Marcelle Patel DO Tissues: A Small Intestine - Biopsy/Polyp (SMALL BOWEL BX) B GASTRIC FOR HP (GASTRIC HP) C Esophagus Biopsy (DISTAL ESOPHAGUS) D Esophagus Biopsy (PROXIMAL ESOPHAGUS) E Colon Biopsy (RANDOM RT COLON) F Colon Biopsy (RANDOM LT COLON) Procedures: HE/12, Gross/Micro L4/6, H PYLORI, IHC First AB Patient: Aleta Castro N [id number] (Continued) Specimen: [id number] Received: 09/03/23 (Continued) Pathological Diagnosis (Continued) Signed (signature on file) Nolan Villegas MD 09/05/23 1417 Specimen: [id number] Received: 09/03/23 Status: FRANKLYN Gonzales Num: [id number] Spec Type: Surgical Subm Dr: Marcelle Patel DO Tissues: A Small Intestine - Biopsy/Polyp (SMALL BOWEL BX) B GASTRIC FOR HP (GASTRIC HP) C Esophagus Biopsy (DISTAL ESOPHAGUS) D Esophagus Biopsy (PROXIMAL ESOPHAGUS) E Colon Biopsy (RANDOM RT COLON) F Colon Biopsy (RANDOM LT COLON) Procedures: /12, Gross/Micro L4/6, H PYLORI, IHC First AB Patient: Aleta Castro [id number] (Continued) Specimen: [id number] Received: 09/03/23 (Continued) Pathological Diagnosis (Continued) lymphocytic [...] entirely submitted (more content not included)... Normal [facility] Insurance Correspondence Off iceon 05-08-2023 Insurance Correspondence Office [id number] FF Normal [facility] IntraOperative Documentson 0 04-29-2023 IntraOperative Documents [id number] F [facility] Postoperative Documentson Postoperative Documents [id number]#1.00TIF F [facility] Main OR Intraoperative Recor don 04-25-2023 Main OR Intraoperative Record IntraOp Document Type FT Summary Primary Physician: Myron Marroquin DO Finalized Date/Time: 04/25/23 09:04:33 Pt. Name: ALETA CASTRO/Sex: 2000 Female Med Rec #: [id number] Physician: Myron Marroquin DO Financial #: [id number] Pt. Type: A Room/Bed: [place] [address] Admit/Disch: 04/23/23 06:25:15 - 04/23/23 14:50:00 Institution: [...] assist with the block. Patient's heartrate 89, gv61-691% on room air. patient tolerated block well. Patient transported back to ASU bay 4 via cart. Patient placed on continous monitor, cart wheels locked and call light in reach. 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 [...] BRACE Primary Procedure Yes Primary Surgeon Myron Marroquin DO Start 04/23/23 09:17:00 Stop 04/23/23 10:54:00 [...] Text: Implements (more content not included)... Normal [facility] Consent for Anesthesiaon Consent for Anesthesia [id number]#1.00T IFF Normal [facility] Discharge Instructionson Discharge Instructions [id number]#1.00T IFF Normal [facility] IntraOperative Documentson 0 04-24-2023 IntraOperative Documents [id number]#1.00T IFF Normal [facility] Operative Reporton Operative Report SURGERY DATE: 2023 SIGN MAINTENANCE: Garry Camacho CST PREOPERATIVE DIAGNOSIS: Left knee anterior cruciate ligament tear POSTOPERATIVE DIAGNOSIS: Left knee anterior cruciate ligament tear OPERATION: Left knee diagnostic operative arthroscopy with autograft kjoj-syiwth-dsir anterior cruciate ligament reconstruction with InternalBrace augmentation ANESTHESIA: General as well as regional block ANESTHESIOLOGIST: KARTHIKEYAN Peacock ESTIMATED BLOOD LOSS: 10 mL INTRAVENOUS FLUIDS: Please see the operative record SPECIMEN: None COMPLICATIONS: None IMPLANTS: Arthrex [id number] Tightrope system with the button for the [...] The anterior cruciate ligament was reconstructed using eepb-jvjani-qmnk from patellar tendon autograft with this InternalBrace [...] by over reaming with a 10 mm turret punch press operator. Excess bone debris is again removed. The [...] on the femo (more content not included)... [facility] Comment on above: Result Comment: Elec tronically Signed By: Myron Marroquin DO\.br\Date and Time Signed: 04/24/23 07:15 EST Preoperative Documentson Preoperative Documents [id number]#1.00T IFF [facility] Consent for Procedure/Surger yon 04-23-2023 Consent for Procedure/Surgery [id number]#1.00TIF F [facility] Consent for Treatmenton Consent for Treatment [id number]#1.00TIF F [facility] Discharge Instructionson Discharge Instructions ALETA CASTRO :2000 Visit Date:04/23/2023 Inpatient Discharge Instructions Your Care Team Admitting Physician - Myron Marroquin DO Referring Physician - Myron Marroquin DO Reason for Your Visit LEFT KNEE ACL TEAR This Is Your Medications List acetaminophen-oxycodone (Percocet 5 mg-325 mg oral tablet) aspirin (Ecotrin 325 mg Tab-EC) Procedure History Laparoscopic left ovarian cystectomy, Ovarian cyst. What to do next New Follow Up Appointments after Discharge Follow Up with Myron Marroquin When: 05/03/2023 11:00 AM EST Comments: Appointment has already been scheduled. Call for any problems. Where: [address] [place] [id number]- [employer] (1) Medications What How Much When Instructions Next Dose New acetaminophen-oxycodone (Percocet 5 mg-325 mg oral tablet) 1 Tablets By Mouth As Directed 1-2 po Q4-6h prn pain Dx: S83.512D Duration: 7 days Pickup at [facility]/pharmacy #[id number] New aspirin (Ecotrin 325 mg Tab-EC) 1 Tablets By Mouth Every day Pickup at [facility]/pharmacy #2344 Pharmacy Information [facility]/pharmacy #[id number]: [address] [place], [place] [id number] [phone] Allergies Banana (Throat tightness, Hives, Vomiting) Latex (Hives, Swelling) azithromycin (Hives) midodrine (Numbness) Education Materials [place], [place] [facility] DISCHARGE INSTRUCTIONS: ANTERIOR CRUCIATE [...] further clarification or any concerns. ___ Myron Marroquin DO [facility] [address] [place] [address] Reviewed: 06-23 Revised: 03/29 Common Emergency Awareness [...] share your experie (more content not included)... [facility] Comment on above: Result Comment: Elec tronically Signed By: Marcelo MCQUEEN, Shyla Acevedo\.ammy\Date and Time Signed: 04/23/23 10:58 EST H&P Updateon 04-23-2023 H&P Update [id number]#1.00TIF F [facility] Main OR PACU I Recordon Main OR PACU I Record PACU Phase I Document Type FT Summary Primary Physician: Myron Marroquin DO Finalized Date/Time: 04/23/23 12:22:33 Pt. Name: ALETA CASTRO/Sex: 2000 Female Med Rec #: [id number] Physician: Myron Marroquin DO Financial #: [id number] Pt. Type: A Room/Bed: [place] [address] Admit/Disch: 04/23/23 06:25:15 - Institution: Case Times [...] Signed By: Valencia Jimenez RN 04/23/23 12:22 [facility] Main OR Preoperative Recordo n 04-23-2023 Main OR Preoperative Record PreOp Document Type FT Summary Primary Physician: Myron Marroquin DO Finalized Date/Time: 04/23/23 08:50:41 Pt. Name: ALETA CASTRO /Sex: 2000 Female Med Rec #: [id number] Physician: Myron Marroquin DO Financial #: [id number] Pt. Type: A Room/Bed: [facility] Admit/Disch: 04/23/23 06:25:15 - Institution: Case Times [...] Signed By: Lyle Comer RN 04/23/23 08:50 [facility] Monitor Recordon 04-23-2023 Monitor Record [id number]#1.00TI FF [facility] Operative Reporton Operative Report Patient: AILEEN CASTRO Age: 22 years Sex: Female : 2000 Associated Diagnoses: None Author: Urbano Lan (Cyrus CHOUDHARY Procedure Nerve Block Block Type: Adductor canal [...] Using maximal sterile barrier technique per current [facility] guidelines including hand hygeine, Guidance (Ultrasound [...] patient tolerated the procedure as expected. Normal [facility] Comment on above: Result Comment: Elec tronically Signed By: [facility] ()Cyrus\.br\Date and Time Signed: 04/23/23 07:56 EST Patient Education - Texton 0 04-23-2023 Patient Education - Text [place] [facility] DISCHARGE INSTRUCTIONS: ANTERIOR CRUCIATE [...] further clarification or any concerns. ___ Myron Marroquin DO [facility] [address] [place] [address] Reviewed: 06-23 Revised: 03/29 [facility] Progress Note-Physicianon Progress Note-Physician Patient: ALETA CASTRO [...] Daily, # 21 tab(s), Refills(s) 0, Pharmacy: [facility]/pharmacy #2345, 165, cm, 04/04/23 6:11:00 EST, Height/Length Dosing, 78, kg, 04/04/23 6:11:00 EST, Weight Dosing Percocet 5 mg-325 mg oral tablet: 1 tab(s), Oral, As Directed, 40 tab(s), Refill(s) 0, 1-2 po Q4-6h prn pain Dx: S83.512D Duration: 7 days, [facility]/pharmacy #2345, 165, cm, 04/04/23 6:11:00 EST, Height/Length Dosing, 78, kg, 04/04/23 6:11:00 EST, Weight Dosing, Home Medications (2) Active Ecotrin 325 mg Tab-EC 325 mg = 1 tab(s), Oral, Daily Percocet 5 mg-325 mg oral tablet 1 tab(s), Oral, As Directed Problem list: All Problems H/O: hypothyroidism / SNOMED CT 841849515 / Confirmed POTS (postural orthostatic tachycardia syndrome) / SNOMED CT 0831360608 / Confirmed Physical Examination Vital Signs 04/23/2023 [...] Pressure 1 (more content not included)... Normal [facility] Comment on above: Result Comment: Elec tronically Signed By: [facility] ()Cyrus\.br\Date and Time Signed: 04/23/23 11:06 EST Progress Note-Physician Patient: ALETA CASTRO Age: 22 years Sex: Female : 2000 Associated Diagnoses: None Author: Myron Marroquin DO Postoperative Information Procedure: L knee scope, ACL recon Preoperative Diagnosis: L ACL tear. Postoperative Diagnosis: same. Performed by: daniel. Latent Fingerprint Examiner: Roby Camacho. Specimens Removed: none. Prosthesis: Arthrex. . Estimated Blood Loss: 10 ml. Complications: None. Anesthesia type: General, block. Normal [facility] Comment on above: Result Comment: Elec tronically Signed By: Myron Marroquin DO\.br\Date and Time Signed: 04/23/23 10:54 EST Progress Note-Physician Patient: ALETA CASTRO Age: 22 years Sex: Female : 2000 Associated Diagnoses: None Author: [facility] ()Cyrus Preoperative Information Anesthesia history: Patient history: None. [...] Daily, # 21 tab(s), Refills(s) 0, Pharmacy: [facility]/pharmacy #2345, 165, cm, 04/04/23 6:11:00 EST, Height/Length [...] All Problems H/O: hypothyroidism / SNOMED CT 071270400 / Confirmed POTS (postural orthostatic tachycardia syndrome) / SNOMED CT 7175355557 / Confirmed, Active Problems (2) H/O: hypothyroidism POTS (postural orthostatic tachycardia syndrome) Histories Past Medical History: No active or resolved past medical history items have been selected or recorded. Family History: No family history items have been selected or recorded. Procedure history: Laparoscopic left ovarian R/o (5935187712). Ovarian cyst removal (327968827). Social History Social & Psychosocial Habits Alcohol [...] U beta hCG Ql Negative . Plan [place] [employer] Anesthesiologists (ASA) physical status classification: Class II. Anesthetic Preoperative Plan: Anesthesia General. Regional Adductor Canal Block Left. Normal [facility] Comment on above: Result Comment: Elec tronically Signed By: [facility] ()Cyrus\.br\Date and Time Signed: 04/23/23 07:41 EST U BetaHcg Qualon 04-23-2023 HCG.beta subunit (U) [Moles/Vol] Negative Normal [facility] Comment on above: Performed By: #### 2 [id number] ####[facility] [address] [place] [address] Consent for Procedure/Surger yon 04-16-2023 Consent for Procedure/Surgery [id number] F Normal [facility] CBC w/ Auto Diffon 4 Basophil Absolute 0.0 E9/L Normal 0.0-0.2 [facility] Comment on above: Performed By: #### 2 102382 ####[place] [address] [place] [address] Basophils/100 WBC (Bld) 0.4 % Normal 0.0-2.0 [facility] Comment on above: Performed By: #### 2 812792 ####[address] [address] Eos Absolute 0.1 E9/L Normal 0.0-0.5 [facility] Comment on above: Performed By: #### 2 587297 ####[address] [address] Eosinophils/100 WBC (Bld) 1.0 % Normal 0.0-8.0 [facility] Comment on above: Performed By: #### 2 616325 ####[address] [address] Erythrocyte distribution width (RBC) [Ratio] 12.6 % Normal 10.9-14.2 [facility] Comment on above: Performed By: #### 2 762823 ####[address] [address] Hematocrit (Bld) [Volume fraction] 39.0 % Normal 34.0-46.0 [facility] Comment on above: Performed By: #### 2 805420 ####[address] [address] Hemoglobin (Bld) [Mass/Vol] 13.1 g/dL Normal 12.0-16.0 [facility] Comment on above: Performed By: #### 2 730312 ####[address] [address] Lymph Absolute 1.4 E9/L Normal 1.0-4.0 [facility] Comment on above: Performed By: #### 2 715871 ####[address] [address] Lymphocytes/100 WBC (Bld) 22.2 % Normal 14.0-50.0 [facility] Comment on above: Performed By: #### 2 008303 ####[address] [address] MCH (RBC) [Entitic mass] 30.6 pg Normal 27.0-34.0 [facility] Comment on above: Performed By: #### 2 115688 ####[address] [address] MCHC (RBC) [Mass/Vol] 33.7 g/dL Normal 31.4-36.0 [facility] Comment on above: Performed By: #### 2 570630 ####[address] [address] MCV (RBC) [Entitic vol] 91.0 fL Normal 80.0-100.0 [facility] Comment on above: Performed By: #### 2 479263 ####[address] [address] [place] Absolute 0.4 E9/L Normal 0.2-1.0 [facility] Comment on above: Performed By: #### 2 769439 ####[address] [address] Monocytes/100 WBC (Bld) 5.6 % Normal 4.0-14.0 [facility] Comment on above: Performed By: #### 2 153095 ####[address] [address] Neutro Absolute 4.6 E9/L Normal 2.0-7.5 [facility] [place] [facility] Comment on above: Performed By: #### 2 478455 ####[address] [address] Neutro Auto 70.8 % Normal 36.0-75.0 [facility] Comment on above: Performed By: #### 2 129563 ####[address] [address] Platelet 312.0 E9/L Normal 150.0-500.0 [facility] Comment on above: Performed By: #### 2 555387 ####[address] [place] [address] Platelet mean volume (Bld) [Entitic vol] 7.7 fL Normal 6.4-10.8 [facility] Comment on above: Performed By: #### 2 766553 ####[facility] [address] [place] [address] RBC 4.3 E12/L Normal 4.3-5.9 [facility] Comment on above: Performed By: #### 2 928172 ####[facility] [address] [place] [address] WBC 6.5 E9/L Normal 4.0-11.0 [facility] Comment on above: Performed By: #### 2 058657 ####[facility] [address] [place] [address] Consent for Treatmenton 03-18 Consent for Treatment [id number] F Normal [facility] HEMATOLOGYOrdered By: SYSTEM SYSTEM on 04-03-2023 [...] Normal 80.0 - 100.0 fL Remisol Heme [place] Absolute 0.4 E9/L Normal 0.2 - 1.0 [...] (COVID-19) RNA QUEENIE+probe Ql (Unsp spec) Negative [facility] Other COVID/FLU/RSV RT-PCR Negative [facility] Other Quick Strepon 04-01-2023 S. pyogenes Org specific cx Ql (Throat) Negative [facility] Other Quick Strep [facility] Other US Gallbladderon 07-23-2022 US Gallbladder Clinical [...] quadrant. Report reported and signed by Cornelius Mary on 07/23/2022 1043 Normal [facility] Information Technology Coordinator PAP ACOG PANEL 2: 21 to 29on 05-09-2022 . . Normal [facility] Comment on above: Performed By: #### 4 566955 #### [facility] [address] [address] [address] Yovanny Villegas Age Gdln ACOG Testing - Normal [facility] Comment on above: Performed By: #### 4 573092 #### [facility] [address] [place] [address] Dr. Yovanny Villegas DIAGNOSIS: Comment [facility] Comment on above: Result Comment: NEGA TIVE FOR INTRAEPITHELIAL LESION OR MALIGNANCY. Performed By: #### 4 573536 #### [facility] [address] [place] [address] Dr. Yovanny Villegas Methodology: Comment [facility] Comment on above: Result Comment: This liquid based ThinPrep(R) pap test was screened with the use of an image guided system. Performed By: #### 4 748740 #### [facility] [address] [place] [address] Dr. Yovanny Villegas Note: Comment [facility] Comment on above: Result Comment: The Pap smear is a screening test designed to aid in the detection of premalignant and malignant conditions of the uterine cervix. It is not a diagnostic procedure and should not be used as the sole means of detecting cervical cancer. Both false-positive and false-negative reports do occur. . Performed By: #### 4 512451 #### [facility] [address] [address] [address] Yovanny Villegas Performed by: Comment Normal [facility] Comment on above: Result Comment: Yanira Navarrete, Apron Man (ASCP) Performed By: #### 4 650181 #### [facility] [address] [place] [address] Dr. Yovanny Villegas Reflex Criteria: Comment Normal [facility] Comment on above: Result Comment: The HPV DNA reflex criteria were not met with this specimen result therefore, no HPV testing was performed. . Performed By: #### 4 564573 #### [facility] [address] [place] [address] Dr. Yovanny Villegas Specimen adequacy: Comment Normal [facility] Comment on above: Result Comment: Sati sfactory for evaluation. Endocervical and/or squamous metaplastic cells (endocervical component) are present. Performed By: #### 4 734936 #### [facility] [address] [place] [address] Dr. Yovanny Villegas CHLAMYDIA/GONOCOCCUS QUEENIE (SW AB/URINE/PAPon 07-28-2021 Chlamydia trachomatis, QUEENIE Negative Normal Negative [facility] Comment on above: Performed By: #### C T/NGNA #### [facility] [address] [place] [address] Dr. Yovanny Villegas Neisseria gonorrhoeae, QUEENIE Negative Normal Negative [facility] Comment on above: Performed By: #### C T/NGNA #### [facility] [address] [place] [address] Dr. Yovanny Villegas VAGINITIS/VAGINOSIS DNA PROB Anders 07-27-2021 Rickey species Negative Normal Negative [facility] Comment on above: Performed By: #### V AGINT #### [facility] [address] [place] [address] Dr. Yovanny Villegas Gardnerella vaginalis Negative Normal Negative [facility] Comment on above: Performed By: #### V AGINT #### [facility] [address] [place] [address] Dr. Yovanny Villegas Trichomonas vaginalis Negative Normal Negative [facility] Comment on above: Performed By: #### V AGINT #### [facility] [address] [place] [address] Dr. Yovanny Villegas XR KNEE LEFT (3 [...] Interpreted by: Deshaun Aguilar MD Signed by: Desahun Aguilar MD 05/24/21 Final result Normal [facility] No fracture or dislocation. [facility] EXAMINATION: THREE XRAY VIEWS OF THE LEFT KNEE 05/24/2021 8:48 pm COMPARISON: None. HISTORY: ORDERING SYSTEM PROVIDED HISTORY: pain eval occult bony injury TECHNOLOGIST PROVIDED HISTORY: pain eval occult bony injury FINDINGS: No fracture, dislocation, or focal osseous lesion is noted. No significant soft tissue abnormality seen. [facility] Deshaun Aguilar MD - 05/24/2021 EXAMINATION: THREE XRAY VIEWS OF THE LEFT KNEE 05/24/2021 8:48 pm COMPARISON: None. HISTORY: ORDERING SYSTEM PROVIDED HISTORY: pain eval occult bony injury TECHNOLOGIST PROVIDED HISTORY: pain eval occult bony injury FINDINGS: No fracture, dislocation, or focal osseous lesion is noted. No significant soft tissue abnormality seen. IMPRESSION: No fracture or dislocation. [facility] Phone: Radiology Study observation (narrative) [facility] Phone: XR KNEE LEFT (3 VIEWS)Ordere d By: Deshaun Aguilar on 05-24-2021 [employer] Phone: COVID Quick Testingon 2021 Result Negative [facility] Other Quick Strepon 05-01-2021 S. pyogenes Org specific cx Ql (Throat) Positive [facility] Other Quick Strep [facility] Other COVID Quick Testingon 2021 Result Negative [facility] Other Quick Fluon 04-07-2021 FLUAV Ab CF (S) [Titer] Negative [facility] Other FLUBV Ab CF (S) [Titer] Negative [facility] Other XR SACRUM COCCYX (MIN 2 VIEW S)on 12-14-2020 XR SACRUM COCCYX (MIN 2 VIEWS) EXAMINATION: THREE XRAY VIEWS OF THE SACRUM/COCCYX 12/14/2020 3:10 am COMPARISON: None. HISTORY: ORDERING SYSTEM PROVIDED HISTORY: fall at work - hit [id number] TECHNOLOGIST PROVIDED HISTORY: fall at work - hit [id number] FINDINGS: The sacroiliac joints are normally aligned. The visualized portions the pelvis are. There is no fracture of the sacrum or coccyx evident. IMPRESSION: No acute osseous abnormality of the sacrum or coccyx evident. Interpreted by: Loc Oswald MD Signed by: Loc Oswald MD 12/14/20 Final result Normal [facility] XR SACRUM COCCYX (MIN 2 VIEW S)Ordered By: David Dominguez on 12-14-2020 No acute osseous abnormality of the sacrum or coccyx evident. [employer] [facility] Phone: EXAMINATION: THREE X RAY VIEWS OF THE SACRUM/COCCYX 12/14/2020 3:10 am COMPARISON: None. HISTORY: ORDERING SYSTEM PROVIDED HISTORY: fall at work - hit [id number] TECHNOLOGIST PROVIDED HISTORY: fall at work - hit [id number] FINDINGS: The sacroiliac joints are normally aligned. The visualized portions the pelvis are. There is no fracture of the sacrum or coccyx evident. [employer] Phone: Cuauht[employer]oc, pn Incoming Radiant Results From [employer] - 12/14/2020 3:24 AM EDT EXAMINATION: THREE XRAY VIEWS OF THE SACRUM/COCCYX 12/14/2020 3:10 am COMPARISON: None. HISTORY: ORDERING SYSTEM PROVIDED HISTORY: fall at work - hit [id number] TECHNOLOGIST PROVIDED HISTORY: fall at work - hit [id number] FINDINGS: The sacroiliac joints are normally aligned. The visualized portions the pelvis are. There is no fracture of the sacrum or coccyx evident. IMPRESSION: No acute osseous abnormality of the sacrum or coccyx evident. [employer] Phone: [employer] Sciences Phone: CT HEAD WO CONTRASTon 2020 CT [...] Maira Cruz MD 09/19/20 Final result Normal [facility] CT Head WO ContrastOrdered B y: Luis Carlso Fragoso on 09-19-[address] examination of the brain. [employer] Phone: EXAMINATION: CT OF T HE HEAD [...] of the visualized skull or soft tissues. [employer] Phone: Cuauhtemoc, Mhpn Incoming Radiant Results From [employer] - 09/19/2020 4:42 PM EDT EXAMINATION: CT [...] Unremarkable noncontrast CT examination of the brain. [facility] Work Phone: [facility] Work Phone: Coding Summaryon 10-27-2019 Coding Summary CODING DATE: 020 FINAL [facility] STATUS: Home PAYOR: [facility] ADMIT DX: REASON FOR VISIT [...] Ashley Pablo Date Saved: 10/27/2019 03:10 pm Normal [facility] [place] 2019 Novel Coronavirus (CoVI D-19), QUEENIE LCon 10-26-2019 SARS-CoV-2, QUEENIE (COVID-19) LC Not Detected Not Detected [facility] [place] Comment on above: Order Comment: [id number] Result Comment: This test was developed and its performance characteristics determined by [employer]. This test has not been FDA cleared [...] detected) result in this assay. Performed At: [facility] [address] [facility] [place] [id number] Ruba Washburn MD Ph:[phone] Performed By: #### 6 [id number] #### [facility] (DEFAULT) [address] [place] [address] Consent Formson 10-26-2019 Consent Forms [id number] TIFF Normal [facility] [place] CNCOon 07-15-2017 CNCO Letter TextToll Free : [phone] [facility] - [address] [address]Wqldd: [phone]: [facility] [place], [place] [address]Diceg: [phone]: [facility] - [address] [place], [place] [address]Lsqqy: [phone]: Steve Pablo M.D., Jonna Castro M.D.Timothy J Adamowicz, D.O..Carin Hoover M.D. Matthew Huff M.D.Date: July 15, 2017Re: Aleta Elliott WHOM IT MAY CONCERN:She was seen in our office today.Sincerely,Katelin Cardona PSR(signed electronically to expedite mailing) Normal [facility] CNOVSPon 07-15-2017 CNOVSP Visit (SP) Office (HEMACL) SYEDA GARAY JANESSA ([id number]) 89 FDate Time Provider Department07/15/17 3:15 PM DAVID BECERRIL HEMACL During your visit today, we recorded the [...] well-hydrated,well nourishedNeuro: Gait normal.Collected: 05/15/17 1043Resulting lab: [facility] MAIN LABORATORYValue: (NOTE)Comment: Performing Pathologist: Jo-Ann [...] list. no changes .Referring Provider: DAVID BECERRIL [[id number]]Allergies As of Date: 07/15/2017(No Known Allergies)Date Reviewed: 07/15/2017Reviewed by: Giovana Notron - Fully AssessedReason for Visit: storage pool [...] by DAVID BECERRIL MD on 07/17/17 Normal [facility] PROGRESSon 07-15-2017 PROGRESS HNO ID: [id number]: David LylessService: (none)Author Type: PhysicianType: Progress NotesFiled: [...] well nourishedNeuro: Gait normal.Collected: 05/15/17 1043Resulting lab: [facility] MAIN LABORATORYValue: (NOTE)Comment: Performing Pathologist: Jo-Ann [...] to developany issues certainly could consider further testingAled Sandeep Becerril MD Normal [facility] Platelet Func Scrnon 018 COL/ADP Cartridge 85 CT (sec) Normal <118 [facility] Comment on above: Result Comment: Resu lts are reported as Closure Time (CT) in seconds. Performed By: #### P LTSCP ####[facility] [address], [place] [phone] COL/EPI Cartridge 105 CT (sec) Normal <199 [facility] Comment on above: Result Comment: Resu lts are reported as Closure Time (CT) in seconds. Performed By: #### P LTSCP ####[facility] [address]ad[address], [place] [phone] Plt Func Scr Interp (NOTE) Normal [facility] Comment on above: Result Comment: Perf orming Pathologist: Jo-Ann eSsay M.D., Ph.D.The closure times (platelet adhesion and [...] bleeding disorder. Performed By: #### P LTSCP ####[facility] [address], [place] [phone] Remote CBCDIF (for [facility] use o nly)on 05-15-2017 Abs Baso <0.03 Normal <0.11 [facility] Comment on above: Performed By: #### R CBCDF ####[facility] [address] AveCAlexandra [place] [phone] Abs [place] 0.53 k/uL Normal <0.87 [facility] Comment on above: Performed By: #### R CBCDF ####[address] [phone] Abs Neut 2.59 k/uL Normal 1.45-7.50 [facility] Comment on above: Performed By: #### R CBCDF ####[place] [address] [address] [place] [phone] Basophils/100 WBC Auto (Bld) 0.4 % Normal [facility] Comment on above: Performed By: #### R CBCDF ####[place] [phone] DTYPE Auto Diff Normal [facility] Comment on above: Performed By: #### R CBCDF ####[place] [phone] Eosinophils 0.07 10*3/uL Normal <0.46 [facility] Comment on above: Performed By: #### R CBCDF ####[place] [phone] Eosinophils/100 leukocytes 1.5 % Normal [facility] Comment on above: Performed By: #### R CBCDF ####[place] [phone] Erythrocyte distribution width Auto Ratio (RBC) 12.2 % Normal 11.5-15.0 [facility] Comment on above: Performed By: #### R CBCDF ####[place] [phone] Erythrocytes (RBC) 4.15 10*6/uL Normal 3.90-5.20 [facility] Comment on above: Performed By: #### R CBCDF ####[place] [phone] Erythrocytes (RBC) 0.0 /100 WBC Normal 0 [facility] Comment on above: Performed By: #### R CBCDF ####[place] [address] [address], [place] [phone] Erythrocytes (RBC) 10*6/uL Normal <0.01 [facility] Comment on above: Performed By: #### R CBCDF ####[place] [address] [address] [place] [phone] Hematocrit (HCT) 39.4 % Normal 36.0-46.0 [facility] Comment on above: Performed By: #### R CBCDF ####[place] [address] [address] [phone] Hemoglobin mass conc (Bld) 12.8 g/dL Normal 11.5-15.5 [facility] Comment on above: Performed By: #### R CBCDF ####[place] [address] [address] [phone] Lymphocytes 1.37 10*3/uL Normal 1.00-4.00 [facility] Comment on above: Performed By: #### R CBCDF ####[place] [address] [address] [place] [phone] Lymphocytes/100 leukocytes 29.9 % Normal [facility] Comment on above: Performed By: #### R CBCDF ####[place] [address] [address] [phone] MCH 30.8 pG Normal 26.0-34.0 [facility] Comment on above: Performed By: #### R CBCDF ####[place] [address] [address] [place], [place] [phone] MCHC mass conc (RBC) 32.5 g/dL Normal 30.5-36.0 [facility] Comment on above: Performed By: #### R CBCDF ####[place] [address] [address] [place], [place] [phone] MCV 94.9 fL Normal 80.0-100.0 [facility] Comment on above: Performed By: #### R CBCDF ####[facility] [place], [place] [phone] Monocytes/100 leukocytes 11.6 % Normal [facility] Comment on above: Performed By: #### R CBCDF ####[facility] [place], [place] [phone] Neutrophils/100 WBC Auto (Bld) 56.6 % Normal [facility] Comment on above: Performed By: #### R CBCDF ####[address] [phone] Platelet mean volume (PMV) 10.2 fL Normal 9.0-12.7 [facility] Comment on above: Performed By: #### R CBCDF ####[address] [phone] Platelets 229 10*3/uL Normal 150-400 [facility] Comment on above: Performed By: #### R CBCDF ####[place] [address] [place], [place] [phone] WBC (Leukocytes) 4.58 10*3/uL Normal 3.70-11.00 [facility] Comment on above: Performed By: #### R CBCDF ####[place] [address] [place], [place] [phone] CNCOon 04-29-2017 CNCO Letter TextToll Free : [phone] [facility] - [address] [place], [place] [address]Pntii: [phone]: [facility] - [address]bx[address] [place], [place] [address]Kiuje: [phone]: [facility] [place], [place] [address]Lhaiz: [phone]: Steve Pablo M.D., Ronaldo Marquez M.D.David Becerril M.D.Papito Sood D.O..Carin Hoover M.D. FACROSaju A. Rajan, M.D.Date: April 29, 2017Re: Aleta Elliott WHOM IT MAY CONCERN:She was seen in our office today.Sincerely,Karly Pizarro Psr(signed electronically to expedite mailing) Normal [facility] CNOVSPon 04-29-2017 CNOVSP Visit (SP) Office (HEMACL) SYEDA GARAY JANESSA ([id number]) 89 FDate Time Provider Department04/29/17 2:30 PM DAVID BECERRIL HEMACL During your visit today, we recorded the [...] patientand her mother at length. Would check [id number] at this time, further testingbased on results.1. 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 Would check [id number] at this time, furthertesting based on results.1. 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 10-28-2024 14:39-0400 Body weight 75.3 kg Pretty ARELLANO Work Phone: [facility] 10-28-2024 14:39-0400 Diastolic blood pressure 80 mm[Hg] Pretty ARELLANO Work Phone: [facility] 10-28-2024 14:39-0400 Systolic blood pressure 130 mm[Hg] Pretty ARELLANO Work Phone: [facility] 09-30-2024 15:34-0400 Body mass index (BMI) [Ratio] 28.29 kg/m2 Doc William DO Work Phone: [facility] 09-30-2024 15:34-0400 Body weight 74.75 kg Doc William DO Work Phone: [facility] 09-30-2024 15:34-0400 Diastolic blood pressure 72 mm[Hg] Doc William DO Work Phone: [facility] 09-30-2024 15:34-0400 Systolic blood pressure 110 mm[Hg] Doc William DO Work Phone: [facility] 08-05-2024 14:27-0400 Body mass index (BMI) [Ratio] 30.21 kg/m2 Doc William DO Work Phone: [facility] 08-05-2024 14:27-0400 Body weight 79.83 kg Doc William DO Work Phone: [facility] 08-05-2024 14:27-0400 Diastolic blood pressure 76 mm[Hg] Doc William DO Work Phone: [facility] 08-05-2024 14:27-0400 Systolic blood pressure 110 mm[Hg] Doc William DO Work Phone: [facility] 02-26-2024 15:41-0500 Body height 162.6 cm Myron Pocos DO Work Phone: [facility] 02-26-2024 15:41-0500 Body mass index (BMI) [Ratio] 30.21 kg/m2 Myron Pocos DO Work Phone: [facility] 02-26-2024 15:41-0500 Body weight 79.83 kg Myron Pocos DO Work Phone: [facility] 02-19-2024 15:26-0500 Body height 162.6 cm Rosalie Payne MD Work Phone: [facility] 02-19-2024 15:26-0500 Body mass index (BMI) [Ratio] 30.21 kg/m2 Rosalie Payne MD Work Phone: [facility] 02-19-2024 15:26-0500 Body weight 79.83 kg Rosalie Payne MD Work Phone: [facility] 02-19-2024 15:26-0500 Heart rate 88 /min Rosalie Payne MD Work Phone: [facility] 02-19-2024 15:26-0500 SaO2% (BldA) [Mass fraction] 98 % Rosalie Payne MD Work Phone: [facility] 12-09-2023 08:00-0400 Body height 162.6 cm Kelvin Oneal DO Work Phone: [facility] 12-09-2023 08:00-0400 Body mass index (BMI) [Ratio] 30.9 kg/m2 Kelvin Oneal DO Work Phone: [facility] 12-09-2023 08:00-0400 Body weight 81.65 kg Kelvin Oneal DO Work Phone: [facility] 09-02-2023 14:25-0400 Diastolic blood pressure 73 mm[Hg] MD Rosalie Payne Work Phone: [facility] 09-02-2023 14:25-0400 Heart rate 80 /min MD Rosalie Payne Work Phone: [facility] 09-02-2023 14:25-0400 Respiratory rate 18 /min MD Rosalie Payne Work Phone: [facility] 09-02-2023 14:25-0400 SaO2% (BldA) [Mass fraction] 100 % MD Rosalie Payne Work Phone: [facility] 09-02-2023 14:25-0400 Systolic blood pressure 122 mm[Hg] MD Rosalie Payne Work Phone: [facility] 09-02-2023 11:31-0400 Body height 165.1 cm MD Rosalie Payne Work Phone: [facility] 09-02-2023 11:31-0400 Body temperature 98.4 [degF] MD Rosalie Payne Work Phone: [facility] 09-02-2023 11:31-0400 Body weight 77.11 kg MD Rosalie Payne Work Phone: [facility] 07-25-2023 14:21-0400 Body height 165.1 cm [facility] 07-25-2023 14:21-0400 Body mass index (BMI) [Ratio] 28.3 kg/m2 [facility] 07-25-2023 14:21-0400 Body weight 77.11 kg [facility] 07-25-2023 14:21-0400 Diastolic blood pressure 72 mm[Hg] [facility] 07-25-2023 14:21-0400 Heart rate 81 /min [facility] 07-25-2023 14:21-0400 Systolic blood pressure 111 mm[Hg] [facility] 04-03-2023 14:55-0500 Diastolic blood pressure 87 mm[Hg] [facility] 04-03-2023 14:55-0500 Heart rate 105 /min Myron [facility] 04-03-2023 14:55-0500 Mean blood pressure 103 mm[Hg] Myron [facility] 04-03-2023 14:55-0500 Systolic blood pressure 136 mm[Hg] Myron [facility] 04-03-2023 14:53-0500 Heart rate 98 /min Myron [facility]oc[facility] 04-03-2023 14:53-0500 SaO2% (BldA) [Mass fraction] 99 % Myron Poc[facility] 04-03-2023 14:53-0500 Diastolic blood pressure 96 mm[Hg] Myron [facility]oc[facility] 04-03-2023 14:53-0500 Mean blood pressure 112 mm[Hg] Myron [facility]oc[facility] 04-03-2023 14:53-0500 Systolic blood pressure 145 mm[Hg] Myron Poc[facility] 04-03-2023 14:52-0500 Respiratory rate 16 /min Myron Marro[facility] 04-01-2023 10:45-0500 Body height 165.1 cm Destinee Kristine Other [facility] Other 04-01-2023 10:45-0500 Body mass index (BMI) [Ratio] 28.29 kg/m2 Destinee Kristine Other [facility] Other 04-01-2023 10:45-0500 Body temperature 98.1 [degF] Destinee Kristine Other [facility] Other 04-01-2023 10:45-0500 Body weight 77.11 kg Destinee Kristine Other [facility] Other 04-01-2023 10:45-0500 Respiratory rate 18 /min Destinee Kristine Other [facility] Other 04-01-2023 10:45-0500 SaO2% (BldA) [Mass fraction] 99 % Destinee Kristine Other [facility] Other 08-21-2021 11:25-0400 Body height 165.1 cm Carlie Thomas Other [facility] Other 08-21-2021 11:25-0400 Body mass index (BMI) [Ratio] 27.12 kg/m2 Carlie Thomas Other [facility] Other 08-21-2021 11:25-0400 Body temperature 98.6 [degF] Carlie Thomas Other [facility] Other 08-21-2021 11:25-0400 Body weight 73.94 kg Carlie Thomas Other [facility] Other 08-21-2021 11:25-0400 Respiratory rate 18 /min Carlie Thomas Other [facility] Other 08-21-2021 11:25-0400 SaO2% (BldA) [Mass fraction] 97 % Carlie Thomas Other [facility] Other 05-24-2021 20:36-0500 Body temperature 97.7 [degF] [employer] DO Work Phone: [facility] 05-24-2021 20:36-0500 Diastolic blood pressure 81 mm[Hg] [employer] DO Work Phone: [facility] 05-24-2021 20:36-0500 Heart rate 101 /min Artis [email or web address] DO Work Phone: [facility] 05-24-2021 20:36-0500 Respiratory rate 16 /min [employer] DO Work Phone: [facility] 05-24-2021 20:36-0500 SaO2% (BldA) [Mass fraction] 97 % [employer] DO Work Phone: [facility] 05-24-2021 20:36-0500 Systolic blood pressure 131 mm[Hg] Artis [email or web address] DO Work Phone: [facility] 05-11-2021 13:10-0500 Body height 165.1 cm Adriana Evangelista Other [facility] Other 05-11-2021 13:10-0500 Body mass index (BMI) [Ratio] 27.12 kg/m2 Adriana Evangelista Other [facility] Other 05-11-2021 13:10-0500 Body temperature 97.8 [degF] Adriana Evangelista Other [facility] Other 05-11-2021 13:10-0500 Body weight 73.94 kg Adriana Evangelista Other [facility] Other 05-11-2021 13:10-0500 Diastolic blood pressure 90 mm[Hg] Adriana Evangelista Other [facility] Other 05-11-2021 13:10-0500 Respiratory rate 18 /min Adriana Evangelista Other [facility] Other 05-11-2021 13:10-0500 SaO2% (BldA) [Mass fraction] 99 % Adriana Evangelista Other [facility] Other 05-11-2021 13:10-0500 Systolic blood pressure 129 mm[Hg] Adriana Evangelista Other [facility] Other 05-01-2021 11:40-0500 Body height 165.1 cm Carlie Martha Other [facility] Other 05-01-2021 11:40-0500 Body mass index (BMI) [Ratio] 26.62 kg/m2 Carlie Thomas Other [facility] Other 05-01-2021 11:40-0500 Body temperature 98.6 [degF] Carlie Thomas Other [facility] Other 05-01-2021 11:40-0500 Body weight 72.58 kg Carlie Thomas Other [facility] Other 05-01-2021 11:40-0500 Respiratory rate 18 /min Carlie Thomas Other [facility] Other 05-01-2021 11:40-0500 SaO2% (BldA) [Mass fraction] 99 % Carlie Thomas Other [facility] Other 04-07-2021 12:00-0500 Body height 165.1 cm Sandeep Ramirez Other [facility] Other 04-07-2021 12:00-0500 Body mass index (BMI) [Ratio] 26.62 kg/m2 Sandepe Ramirez Other [facility] Other 04-07-2021 12:00-0500 Body temperature 97.6 [degF] Sandeep Ramirez Other [facility] Other 04-07-2021 12:00-0500 Body weight 72.58 kg Sandeep Ramirez Other [facility] Other 04-07-2021 12:00-0500 SaO2% (BldA) [Mass fraction] 98 % Sandeep Ramirez Other [facility] Other 12-13-2020 23:25-0400 Diastolic blood pressure 89 mm[Hg] David Dominguez MD Work Phone: [facility] Work Phone: 12-13-2020 23:25-0400 Systolic blood pressure 141 mm[Hg] David Dominguez MD Work Phone: [facility] Work Phone: 12-13-2020 23:23-0400 Body height 165.1 cm David Dominguez MD Work Phone: [facility] Work Phone: 12-13-2020 23:23-0400 Body mass index (BMI) [Ratio] 26.63 kg/m2 David Dominguez MD Work Phone: [facility] Work Phone: 12-13-2020 23:23-0400 Body temperature 98.29 [degF] David Dominguez MD Work Phone: [facility] Work Phone: 12-13-2020 23:23-0400 Body weight 72.58 kg David Dominguez MD Work Phone: [facility] Work Phone: 12-13-2020 23:23-0400 Heart rate 79 /min David Dominguez MD Work Phone: [facility] Work Phone: 12-13-2020 23:23-0400 Respiratory rate 14 /min David Dominguez MD Work Phone: [facility] Work Phone: 12-13-2020 23:23-0400 SaO2% (BldA) [Mass fraction] 99 % David Dominguez MD Work Phone: [facility] Work Phone: 09-19-2020 15:56-0400 Body temperature 98.6 [degF] [facility] Work Phone: 09-19-2020 15:56-0400 Diastolic blood pressure 90 mm[Hg] [facility] Work Phone: 09-19-2020 15:56-0400 Heart rate 103 /min [facility] Work Phone: 09-19-2020 15:56-0400 Respiratory rate 16 /min [facility] Work Phone: 09-19-2020 15:56-0400 SaO2% (BldA) [Mass fraction] 100 % [facility] Work Phone: 09-19-2020 15:56-0400 Systolic blood pressure 139 mm[Hg] [employer] Phone: Encounters Encounter Date Encounter Type Care Provider Facility Start: 10-28-2024 End: 10-28-2024 Patient encounter procedure Pretty ARELLANO Work Phone: [facility] Start: 10-28-2024 End: 10-28-2024 flow sheet Pretty ARELLANO Work Phone: [facility] Comment on above: Second trimester pre gnancy ([facility] 23 weeks gestation of ([facility]); Diabetes mellitus screening; STD exposure; Well woman exam with routine gynecological exam; Heart palpitations Start: 10-28-2024 End: 10-28-2024 ambulatory PRETTY MCKEON Not Available Start: 10-28-2024 End: 10-28-2024 Bamboo flowsheet Pretty ARELLANO Work Phone: [facility] Start: 10-28-2024 End: 11-03-2024 Bamboo flowsheet Pretty ARELLANO Work Phone: [facility] Start: 10-28-2024 End: 11-03-2024 Clinisync Result Encounter Generic External Data Provider [facility] Department Unsolicited Start: 10-28-2024 End: 10-30-2024 External Result Encounter Jessica Steen NP Work Phone: [facility] Unsolicited Start: 10-06-2024 End: 10-06-2024 Clinisync Result Encounter Doc William DO Work Phone: [facility] Unsolicited Start: 10-06-2024 End: 10-06-2024 Clinisync Result Encounter Doc William DO Work Phone: [facility] Unsolicited Start: 09-30-2024 End: 09-30-2024 flow sheet Doc William DO Work Phone: [facility] Comment on above: 19 weeks gestation o f ([facility]); Second trimester ([facility]) Start: 09-30-2024 End: 09-30-2024 ambulatory DOC WILLIAM Not Available Start: 09-28-2024 End: 09-28-2024 Clinisync Result Encounter Generic External Data Provider [facility] Unsolicited Start: 09-28-2024 End: 09-28-2024 Clinisync Result Encounter Generic External Data Provider [facility] Unsolicited Start: 09-02-2024 End: 09-02-2024 flow sheet Pretty ARELLANO Work Phone: [facility] Comment on above: Second trimester pre gnancy ([facility]); 15 weeks gestation of ([facility]); Screening, , for anatomic survey ([facility]) Start: 09-02-2024 End: 09-02-2024 ambulatory PRETTY MCKEON [...] 02-26-2024 End: 02-26-2024 Patient encounter procedure Myron Marroquin DO Work Phone: [facility] Comment on above: S/P reconstruction o f ACL of left knee using bone-patellar tendon-bone autograft (Primary Dx) Start: 02-26-2024 End: 02-26-2024 ambulatory MYRON MARROQUIN Not Available Start: 02-19-2024 End: 02-19-2024 Office [...] Start: 12-24-2023 End: 12-24-2023 ambulatory Nereyda Vieira [employer]ARCH TREATING ASSISTANT Work Phone: [facility] Comment on above: Acute pain of left k nee (Primary Dx); Status post arthroscopic reconstruction of anterior cruciate ligament of left knee using quadriceps tendon autograft Start: 12-24-2023 End: 12-24-2023 Bamboo flowsheet Nereyda Vieira STARCH TREATING ASSISTANT Work Phone: [facility] Start: 12-24-2023 End: 12-24-2023 Bamboo flowsheet Nereyda Vieira STARCH TREATING ASSISTANT Work Phone: [facility] Start: 12-17-2023 [...] Not Available Start: 12-03-2023 End: 12-03-2023 ambulatory Nereyda Vieira [employer]ARCH TREATING ASSISTANT Work Phone: [facility] Comment on above: Acute pain of left k nee (Primary Dx); Status post arthroscopic reconstruction of anterior cruciate ligament of left knee using quadriceps tendon autograft Start: 12-03-2023 End: 12-03-2023 Bamboo flowsheet Nereyda Vieira STARCH TREATING ASSISTANT Work Phone: [facility] Start: 12-03-2023 End: 12-03-2023 Bamboo flowsheet Nereydaannita Vieira STARCH TREATING ASSISTANT Work Phone: [facility] Start: 11-19-2023 End: 11-19-2023 ambulatory Jennifer Martinonicolle STARCH TREATING ASSISTANT [facility] Comment on above: Acute pain of left k nee (Primary Dx); Status post arthroscopic reconstruction of anterior cruciate ligament of left knee using quadriceps tendon autograft Start: 11-19-2023 End: 11-19-2023 Bamboo flowsheet Jennifer Halemilagrosall STARCH TREATING ASSISTANT [facility] Start: 11-19-2023 End: 11-19-2023 Bamboo flowsheet Jennifer Martinoall STARCH TREATING ASSISTANT [facility] Start: 11-12-2023 End: 11-12-2023 ambulatory Nereydaannita Vieira STARCH TREATING ASSISTANT Work Phone: [facility] Comment on above: Acute pain of left k nee (Primary Dx); Status post arthroscopic reconstruction of anterior cruciate ligament of left knee using quadriceps tendon autograft Start: 11-12-2023 End: 11-12-2023 Bamboo flowsheet Nereyda Vieira STARCH TREATING ASSISTANT Work Phone: [facility] Start: 11-12-2023 End: 11-12-2023 Bamboo flowsheet Nereyda Vieira STARCH TREATING ASSISTANT Work Phone: [facility] Start: 09-02-2023 Non-patient / Non-visit MD Hector Payne Work Phone: [facility] Work Phone: Start: 09-02-2023 End: 09-02-2023 Admission to same day surgery center MD Rosalie Payne Work Phone: [facility] Work Phone: Start: 09-02-2023 End: 09-02-2023 ambulatory MD Rosalie Payne Work Phone: [facility] Work Phone: Start: 07-25-2023 End: 07-25-2023 ambulatory [facility] Work Phone: Start: 07-25-2023 End: 07-25-2023 Patient encounter procedure [facility] Work Phone: Start: 04-23-2023 End: 04-23-2023 ambulatory Jc Pocos Facility:[facility] Start: 04-22-2023 Chart abstracting Pepe Khan gs PT Work Phone: [facility] Start: 04-03-2023 End: 04-04-2023 ambulatory Jc Pocos Facility:[facility] Start: 04-03-2023 End: 04-03-2023 Patient encounter procedure Jc Poc[facility] Start: 04-01-2023 End: 04-01-2023 ambulatory Destineegianfranco Paganb Other [facility] Other Start: 04-01-2023 Office outpatient vi sit 15 minutes Destinee Kristine [facility] Start: 05-01-2022 End: 05-01-[address] DOC THOMAS . Facility:[facility] Start: 08-21-2021 End: 08-21-2021 ambulatory Carlie Thomas Other [facility] Other Start: 08-21-2021 Office outpatient vi sit 15 minutes Carlie Thomas [facility] Start: 07-26-2021 End: 07-26-[address] DOC THOMAS . Facility:[facility] Start: 05-24-2021 Emergency department patient visit ARTIS YODER [facility] Start: 05-24-2021 End: 05-24-2021 Emergency department patient visit Artis Yoder Work Phone: [facility] ED Comment on above: Contusion of left kn ee, initial encounter (Primary Dx) Start: 05-11-2021 End: 05-11-2021 ambulatory Adriana Evangelista Other [facility] Other Start: 05-11-2021 Office outpatient vi sit 15 minutes Adriana Evangelista [facility] Start: 05-01-2021 (URG) Urgent Care Visit Carlie quintanilla [facility] Start: 05-01-2021 End: 05-01-2021 ambulatory Carlie Thomas Other [facility] Other Start: 04-07-2021 End: 04-07-2021 ambulatory Sandeep Ramirez Other [facility] Other Start: 04-07-2021 Office outpatient vi sit 15 minutes Sandeep Ramirez [facility] Start: 12-14-2020 End: 12-14-2020 Emergency department patient visit DAVID DOMINGUEZ [facility] Start: 12-14-2020 End: 12-14-2020 Emergency department patient visit David Dominguez MD Work Phone: [facility] ED Comment on above: Tailbone injury, ini tial encounter (Primary Dx) Start: 09-19-2020 End: 09-19-2020 Emergency department patient visit [facility] ED Comment on above: Closed head injury, initial encounter (Primary Dx) Start: 07-15-2017 End: 07-18-2017 Ambulatory DAVID BECERRIL [facility] Start: 05-15-2017 End: 05-15-2017 Ambulatory DAVID SHEFFIELDGAS [facility] Start: 04-30-2017 End: 04-30-2017 [facility] Start: 04-29-2017 End: 04-30-2017 Ambulatory DAVID Hopkins [facility] Start: 03-13-2017 End: 03-14-2017 Ambulatory BLANCA PABLO Facility:[facility] Procedures Date Procedure Procedure Detail Performing Clinician Start: 10-28-2024 RECURRENT VAGINITIS (HTRX) Jessica patel REFINERY OPERATOR [employer] Work Phone: Start: 10-28-2024 Urnls dip stick/tablet rgnt non-auto w/o micrscp Jessica Steen REFINERY OPERATOR [employer] Work Phone: Start: 10-28-2024 IGP,APTIMA HPV,AGE GDLN Pretty ARELLANO Work Phone: Start: 10-06-2024 US OB CERVICAL [...] Work Phone: Start: 07-18-2024 BOX TEST Doc Thomas DO Work Phone: Start: 07-18-2024 [facility] DRUG SCREEN RAPID (URINE) Generic Ex ternal Data Provider Start: 07-16-2024 Urnls dip stick/tablet rgnt non-auto w/o micrscp Doc Thomas DO Work Phone: Start: 02-20-2024 Complete blood count with white cell differential, automated Rosalie Payne MD Work Phone: Start: 02-20-2024 Comprehensive metabolic panel Rosalie huertas MD Work Phone: Start: 02-20-2024 Thyroglobulin antibody Rosalie Payne MD Work Phone: Start: 09-02-2023 Esophagogastroduodenoscopy MD Rosalie Mcdowell eyer Work Phone: Start: 05-10-2023 History of reconstruction of anterior cruciate ligament tear Status post arthroscopic reconstruction of anterior cruciate ligament of left knee using quadriceps tendon autograft Nereyda Vieira STARCH TREATING ASSISTANT Work Phone: Start: 05-24-2021 Radiologic examination knee [...] left knee using bone-patellar tendon-bone autograft Myron Marroquin DO Work Phone: History of reconstru ction of anterior cruciate ligament tear Status post arthroscopic reconstruction of anterior cruciate ligament of left knee using quadriceps tendon autograft Ppee Kirby PT Work Phone: History of reconstru ction of anterior cruciate ligament tear Status post arthroscopic reconstruction of anterior cruciate ligament of left knee using quadriceps tendon autograft Nereyda Vieira STARCH TREATING ASSISTANT Work Phone: History of reconstru ction of anterior cruciate ligament tear Status post arthroscopic reconstruction of anterior cruciate ligament of left knee using quadriceps tendon autograft Pepe Yañez Lilo PT Work Phone: History of reconstru ction of anterior cruciate ligament tear Status post arthroscopic reconstruction of anterior cruciate ligament of left knee using quadriceps tendon autograft Nereyda Vieira STARCH TREATING ASSISTANT Work Phone: History of reconstru ction of anterior cruciate ligament tear Status post arthroscopic reconstruction of anterior cruciate ligament of left knee using quadriceps tendon autograft Nereyda Vieira STARCH TREATING ASSISTANT Work Phone: History of reconstru ction of anterior cruciate ligament tear Status post arthroscopic reconstruction of anterior cruciate ligament of left knee using quadriceps tendon autograft Jennifer Geoffreyjanak STARCH TREATING ASSISTANT Laparoscopic excisio n of cyst of left ovary Myron Marroquin Plan of Treatment Date Care Activity Detail Author Start: 11-25-2024 End: 11-25-2024 Patient encounter procedure 11/25/2024 1:50 PM EDT Routine [facility] [address] [place] [address] Doc Thomas DO [address] [place], [place] [id number] [facility] Start: 11-16-2024 Influenza vaccination N [facility] Start: 10-28-2024 End: 10-28-2024 Patient encounter procedure [facility] Comment on above: Arrived Start: 10-28-2024 End: 10-28-2025 12 lead ECG ECG 12 lead unit performed ECG Routine Heart palpitations Expected: 10/28/2024 (Approximate), Expires: 10/28/2025 [facility] Comment on above: Expected: 10/28/2024 (Approximate), Expires: 10/28/2025 Start: 10-28-2024 End: 10-28-2025 CBC panel - Blood by Automated count CBC Lab Routine Diabetes mellitus screening Expected: 10/28/2024 (Approximate), Expires: 10/28/2025 [facility] Work Phone: Comment on above: Expected: 10/28/2024 (Approximate), Expires: 10/28/2025 Start: 10-28-2024 End: 10-28-2026 Echocardiogram 2D complete Echocardiogram 2D complete Echocardiography Routine Heart palpitations Expected: 10/28/2024 (Approximate), Expires: 10/28/2026 [facility] Comment on above: Expected: 10/28/2024 (Approximate), Expires: 10/28/2026 Start: 10-28-2024 End: 10-28-2025 Measurement of glucose 1 hour after glucose challenge for glucose tolerance test Glucose tolerance, 1 hour Lab Routine Diabetes mellitus screening Expected: 10/28/2024 (Approximate), Expires: 10/28/2025 [facility] Healthcare Comment on above: Expected: 10/28/2024 (Approximate), Expires: 10/28/2025 Start: 09-30-2024 End: 09-30-2024 Patient encounter procedure 09/30/2024 3:40 PM EDT Routine [facility] [address] [place] [id number] Doc Thomas, DO [address] [place] [address] [facility] Start: 09-30-2024 End: 09-30-2024 Professional / ancillary services management 09/30/2024 2:30 PM EDT Ancillary Procedure [facility] [address] [place] [id number] [facility] Start: 09-02-2024 End: 09-02-2024 Patient encounter procedure [facility] Comment on above: Arrived Start: 09-02-2024 End: 11-02-2024 Alpha fetoprotein, maternal Alpha fetoprotein, maternal Lab Routine Second trimester ([facility]) Expected: 09/02/2024 (Approximate), Expires: 11/02/2024 [facility] Healthcare Comment on above: Expected: 09/02/2024 (Approximate), Expires: 11/02/2024 Start: 09-02-2024 End: 12-03-2024 US for US OB 14+ weeks anatomy scan Imaging Routine Screening, , for anatomic survey ([facility]) Expected: 09/02/2024, Expires: 12/03/2024 [facility] Work Phone: Comment on above: Expected: 09/02/2024 , Expires: 12/03/2024 Start: 08-05-2024 End: 08-05-2024 Patient encounter procedure [facility] Comment on above: Arrived Start: 07-16-2024 End: 07-16-2025 ABO/Rh ABO/Rh Lab Routine Missed menses , unspecified gestational age Expected: 07/16/2024 (Approximate), Expires: 07/16/2025 [facility] Healthcare Comment on above: Expected: 07/16/2024 (Approximate), Expires: 07/16/2025 Start: 07-16-2024 End: 07-16-2025 Blood type and Indirect antibody screen panel - Blood Type and screen Lab Routine Missed menses , unspecified gestational age Expected: 07/16/2024 (Approximate), Expires: 07/16/2025 [facility] Healthcare Comment on above: Expected: 07/16/2024 (Approximate), Expires: 07/16/2025 Start: 07-16-2024 End: 07-16-2025 Drugs of abuse panel - Urine by Screen method Rapid drug screen, urine Lab Routine , unspecified gestational age Encounter for supervision of normal first in first trimester Expected: 07/16/2024 (Approximate), Expires: 07/16/2025 [facility] Healthcare Comment on above: Expected: 07/16/2024 (Approximate), Expires: 07/16/2025 Start: 07-10-2024 End: 10-09-2024 US Pelvis transvaginal US OB transvaginal Imaging Routine Missed menses Expected: 07/10/2024, Expires: 10/09/2024 [facility] Healthcare Work Phone: Comment on above: Expected: 07/10/2024 , Expires: 10/09/2024 Start: 02-21-2024 End: 02-21-2024 Patient encounter procedure 02/21/2024 8:00 AM EST Office Visit [facility] [address] [place] [phone] Myron Marroquin, [address] [place] [address] [facility] Start: 02-19-2024 End: 02-19-2024 Patient encounter procedure 02/19/2024 3:30 PM EST Office Visit [facility] [address] [place] [address] Rosalie Payne MD [address] [facility] [address] [place] [address] (Fax) 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CMS/HCC); Chronic fatigue; Cigarette smoker; [...] Treatment [facility] [address] [place] [address] Pepe Kirby, PT [address] [place], [place] [id number] [facility] Start: 01-14-2024 End: 01-14-2024 ambulatory 01/14/2024 3:30 PM EDT Treatment [facility] [address] [place] [address] Nereyda Vieira, STARCH TREATING ASSISTANT [address] [place] [address] [facility] Start: 01-10-2024 End: 01-10-2024 ambulatory 01/10/2024 2:30 PM EDT Treatment [facility] [address] [place] [phone] Pepe Kirby, PT [address] [place] [address] [facility] Start: 01-07-2024 End: 01-07-2024 ambulatory 01/07/2024 3:30 PM EDT Treatment [facility] [address] [place] [phone] Pepe Kirby, PT [address] [place] [address] [facility] Start: 01-03-2024 End: 01-03-2024 ambulatory 01/03/2024 2:30 PM EDT Treatment [facility] [address] [place] [phone] Pepe Kirby, PT [address] [place] [address] [facility] Start: 12-31-2023 End: 12-31-2023 ambulatory 12/31/2023 3:30 PM EDT Treatment [facility] [address] [place] [phone] Jennifer Dozier, STARCH TREATING ASSISTANT [facility] Start: 12-27-2023 End: 12-27-2023 ambulatory [facility] Comment on above: Arrived Start: 12-24-2023 End: 12-24-2023 ambulatory 12/24/2023 3:00 PM EDT Treatment [facility] [address] [place] [phone] Nereyda Vieira, STARCH TREATING ASSISTANT [address] [place] [address] [facility] Start: 12-17-2023 End: 12-17-2023 ambulatory 12/17/2023 3:00 PM EDT Treatment [facility] [address] [place] [phone] Pepe Kirby, PT [address] [place] [address] [facility] Start: 12-09-2023 End: 12-09-2023 Patient encounter procedure [facility] Comment on above: Arrived Start: 12-03-2023 End: 12-03-2023 ambulatory 12/03/2023 3:30 PM EDT Treatment [facility] [address] [place] [phone] Nereyda Vieira, STARCH TREATING ASSISTANT [address] [place] [address] Arrived [facility] Comment on above: Arrived Start: 11-19-2023 End: 11-19-2023 ambulatory [facility] Comment on above: Acute pain of left k nee (Primary Dx); Status post arthroscopic reconstruction of anterior cruciate ligament of left knee using quadriceps tendon autograft Start: 11-17-2023 Influenza vaccination Influenza Vacc ine (#1) [facility] Start: 09-02-[address] [facility] Start: 05-07-2023 End: 05-07-2023 Patient encounter procedure 05/07/2023 11:10 AM EST Office Visit [facility] [address] [place] [address] Doc Thomas DO [address] [place] [address] [facility] Start: 05-03-2023 End: 05-03-2023 Patient encounter procedure 05/03/2023 11:00 AM EST Office Visit [facility] [address] [facility] [address] [place] [address] Vaniaobed Myron Washburn, DO [address] [place] [address] [facility] Start: 04-23-2023 End: 04-23-2023 Patient encounter procedure 04/23/2023 8:00 AM EST Procedure Visit [facility] Vaniaobed Myron Washburn, DO [address] [place] [address] [facility] Start: 04-22-2023 End: 04-22-2023 ambulatory 04/22/2023 2:30 PM EST Evaluation [facility] PT [address] [place] [phone] Pepe Kirby, PT [address] [place] [address] [facility] Start: 11-16-2022 Influenza vaccination Influenza Vacc ine (#1) [facility] Start: 08-30-2021 DTaP/Tdap/Td vaccine (5 - Td or Tdap) DTaP/Tdap/Td vaccine (5 - Td or Tdap) [facility] Start: 11-16-2020 Influenza vaccination Flu vaccine (# 1) [facility] Start: 06-09-2020 Screening for malign ant neoplasm of cervix [facility] Start: 06-09-2018 DTaP/Tdap/Td vaccine (1 - Tdap) DTaP/Tdap/Td vaccine (1 - Tdap) [facility] Work Phone: Start: 2015 Screening for Chlamy jasper trachomatis Chlamydia screen [facility] Start: 06-09-2014 HIV screening HIV screen [facility] Start: 11-23-2011 Varicella vaccine (2 of 2 - 2-dose childhood series) Varicella vaccine (2 of 2 - 2-dose childhood series) [facility] Start: 2011 COVID-19 Vaccine (1) COVID-19 Vaccin e (1) [facility] Phone: Start: 2011 Depression Screen Depression Screen [facility] Start: 06-09-2010 HPV vaccine (1 - 2-d ose series) HPV vaccine (1 - 2-dose series) [facility] Start: 06-09-2004 COVID-19 Vaccine (1) COVID-19 Vaccin e (1) [facility] Start: 06-09-2000 Varicella vaccine (1 of 2 - 2-dose childhood series) Varicella vaccine (1 of 2 - 2-dose childhood series) [employer] [facility] Phone: Start: 1999 Hepatitis C screening Hepatitis C wv ree [facility] Bacteria identified in Urine by Culture Urine culture Microbiology Routine Missed menses Ordered: 07/16/2024 [facility] Comment on above: Ordered: 07/16/2024 CBC W Auto Different ial panel - Blood CBC and differential Lab Routine Missed menses , unspecified gestational age Ordered: 07/16/2024 [facility] Healthcare Comment on above: Ordered: 07/16/2024 CHLAMYDIA TRACHOMATI S (GENITO/STI) CHLAMYDIA TRACHOMATIS (GENITO/STI) Lab Routine STD exposure Ordered: 10/28/2024 [facility] Comment on above: Ordered: 10/28/2024 Cytology Cervical or vaginal smear or scraping study Pap Smear Pathology and Cytology Routine Well woman exam with routine gynecological exam Ordered: 10/28/2024 [facility] Comment on above: Ordered: 10/28/2024 Hemoglobin A1c/Hemoglobin.total in Blood Hemoglobin A1c Lab Routine Missed menses , unspecified gestational age Ordered: 07/16/2024 [facility] Healthcare Comment on above: Ordered: 07/16/2024 Hepatitis B virus surface Ag [Presence] in Serum or Plasma by Immunoassay Hepatitis B surface antigen Lab Routine Missed menses , unspecified gestational age Ordered: 07/16/2024 [facility] Healthcare Comment on above: Ordered: 07/16/2024 Hepatitis C virus Ab [Presence] in Serum or Plasma by Immunoassay Hepatitis C antibody Lab Routine Missed menses , unspecified gestational age Ordered: 07/16/2024 [facility] Comment on above: Ordered: 07/16/2024 HIV-1/HIV-2 antigen/antibody combination immunoassay HIV-1 and HIV-2 antibodies Lab Routine Missed menses , unspecified gestational age Ordered: 07/16/2024 [facility] Comment on above: Ordered: 07/16/2024 Neisseria gonorrhoea e DNA [Presence] in Unspecified specimen by QUEENIE with probe detection Neisseria gonorrhea DNA probe, direct Lab Routine STD exposure Ordered: 10/28/2024 [facility] Comment on above: Ordered: 10/28/2024 Patient Education Hiatal hernia Hemorrhoids Gastritis Know your [facility] Work Phone: Reagin Ab [Presence] in Serum by RPR RPR Lab Routine Missed menses , unspecified gestational age Ordered: 07/16/2024 [facility] Comment on above: Ordered: 07/16/2024 Rubella antibody, IgG Rubella an tibody, IgG Lab Routine Missed menses , unspecified gestational age Ordered: 07/16/2024 [facility] Comment on above: Ordered: 07/16/2024 SURESWAB(R) ADVANCED VAGINITIS PLUS, TMA SURESWAB(R) ADVANCED VAGINITIS PLUS, TMA Pathology and Cytology Routine STD exposure Ordered: 10/28/2024 [facility] Comment on above: Ordered: 10/28/2024 End: 08-05-2025 Thyrotropin [Units/volume] in Serum or Plasma TSH Lab Routine 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CMS/HCC) [id number] for 6 Occurrences starting 08/05/2024 until 08/05/2025 [facility] Work Phone: Comment on above: [id number] for 6 Occurr ences starting 08/05/2024 until 08/05/2025 US Pelvis transvaginal US OB tra nsvaginal Imaging Routine Missed menses 07/16/2024 1:[address] [facility] Immunizations Immunization Date Immunization Notes Care Provider Fa cility 11-12-2016 hepatitis B vaccine, adult dosage Pepe Kirby PT Work Phone: [facility] 11-12-2016 meningococcal oligosaccharide (groups A, C, Y and W-135) diphtheria toxoid conjugate vaccine (MCV4O) Pepe Kirby PT Work Phone: [facility] 03-31-2012 hepatitis A vaccine, pediatric/adolescent dosage, 2 dose schedule Pepe Kirby PT Work Phone: [facility] 08-31-2011 hepatitis A vaccine, pediatric/adolescent dosage, 2 dose schedule Pepe Kirby PT Work Phone: [facility] 08-31-2011 tetanus toxoid, redu leyla diphtheria toxoid, and acellular pertussis vaccine, adsorbed Pepe Kirby PT Work Phone: [facility] 08-31-2011 varicella virus vaccine Pepe Kirby PT Work Phone: [facility] 09-11-2000 haemophilus influenz ae type b conjugate and Hepatitis B vaccine Pepe Kirby PT Work Phone: [facility] 09-11-2000 haemophilus influenz ae type b vaccine, HbOC conjugate Pepe Kirby PT Work Phone: [facility] 09-11-2000 hepatitis B vaccine, pediatric or pediatric/adolescent dosage Pepe Kirby PT Work Phone: [facility] 09-11-2000 measles, mumps and r ubella virus vaccine Pepe Kirby PT Work Phone: [facility] 09-11-2000 poliovirus vaccine, inactivated Pepe Kirby PT Work Phone: [facility] 03-26-2000 DTaP-Haemophilus influenzae type b conjugate vaccine Pepe Kirby PT Work Phone: [facility] 03-26-2000 pneumococcal conjuga te vaccine, 7 valent Pepe Kirby PT Work Phone: [facility] 1999 diphtheria, tetanus toxoids and acellular pertussis vaccine, Haemophilus influenzae type b conjugate, and poliovirus vaccine, inactivated ([id number]) Pepe Kirby PT Work Phone: [facility] 1999 diphtheria, tetanus toxoids and acellular pertussis vaccine, Haemophilus influenzae type b conjugate, and poliovirus vaccine, inactivated ([id number]) Pepe Kirby PT Work Phone: [facility] 1999 hepatitis B vaccine, pediatric or pediatric/adolescent dosage Pepe Kirby PT Work Phone: [facility] 1999 hepatitis B vaccine, pediatric or pediatric/adolescent dosage Pepe Kirby PT Work Phone: [facility] Healthcare Payers Date Payer Category Payer Self-pay 2023 Unknown [id number] 2022 Unknown [id number] 2022 Blue Cross Blue Shield 1.2.8 [id number] 2022 Unknown [id number] [id number] 2020 Unknown [id number] 2006 Private Health Insurance [id number] 1999 Unknown [id number] 2.16.8 40.1.783795.3.579.2.173 1999 Unknown [id number] 2.16.8 40.1.208238.3.579.2.173 1999 Unknown [id number] 2.16.8 40.1.128117.3.579.2.173 1999 Unknown [id number] 2.16.84 0.1.190805.3.579.2.593 1999 Unknown [id number] 2.16.84 0.1.815301.3.579.2.593 1999 Unknown [id number] 2.16.8 40.1.920742.3.579.2.727 1999 Unknown [id number] 2.16.8 40.1.463755.3.579.2.727 1999 Unknown [id number] 2.16.8 40.1.542264.3.579.2.9 1999 Unknown [id number] 2.16.8 40.1.992835.3.579.2.1258 1999 Unknown [id number] 2.16.8 40.1.076620.3.579.2.1258 1999 Unknown [id number] 2.16.8 40.1.461772.3.579.2.1258 1999 Unknown [id number] 2.16.84 0.1.571968.3.579.2.1258 1999 Unknown [id number] 2.16.84 0.1.714712.3.579.2.1258 1999 Unknown [id number] 2.16.84 0.1.938097.3.579.2.1258 1999 Unknown [id number] 2.16.84 0.1.869202.3.579.2.1258 1999 Unknown [id number] 2.16.84 0.1.892332.3.579.2.1258 1999 Unknown [id number] 2.16.84 0.1.484791.3.579.2.1258 1999 Unknown [id number] 2.16.84 0.1.383359.3.579.2.1258 1999 Unknown [id number] 2.16.84 0.1.917946.3.579.2.1258 1999 Unknown [id number] 2.16.84 0.1.757603.3.579.2.1258 1999 Unknown [id number] 2.16.84 0.1.302092.3.579.2.1258 1999 Unknown [id number] 2.16.84 0.1.986348.3.579.2.1258 1999 Unknown [id number] 2.16.84 0.1.904926.3.579.2.1259 1959 Unknown [id number] 2.1 6.840.1.700858.19 1959 Unknown [id number] [facility] GTFAN [id number] 2.16.840.1.626280.19 Unknown [id number] 2.16.8 40.1.746683.3.579.2.531 Social History Date Type Detail Facility Start: 09-19-2020 End: 12-14-2020 Tobacco smoking status PAIS Never smoker [employer] Phone: Start: 09-19-2020 End: 05-10-2023 Tobacco use and exposure Never used [facility] Start: 1999 Sex Assigned At Not on file [employer] [facility] Phone: Exposure to SARS-CoV -2 (event) Not sure [facility] Start: 12-14-2020 End: 05-24-2021 Alcohol intake Current drinker of alcohol (finding) [employer] Phone: Start: 12-14-2020 Alcohol Comment Rare [employer] Phone: Start: 12-11-2022 End: 02-26-2024 [facility] Tobacco Current vaping o r e-cigarette use Smokeless Tobacco Use:. [facility] Tobacco smoking status No Smokin g Status [facility] Start: 02-09-2023 End: 05-10-2023 Tobacco smoking status [facility] Occasional tobacco smoker [facility] Start: 04-15-2023 End: 09-30-2024 Alcohol intake Ex-drinker (finding) [facility] Start: 12-11-2022 End: 02-26-2024 History of [...] 09-02-2023 Tobacco smoking status NHIS Smoker (finding) [facility] History of tobacco use Cigarette Smoker [facility] Start: 05-30-2024 [facility] Goals Date Patient Goal Desired Activity /State Functional Status Date Assessment Result Facility 04-03-2023 Functional Status No [facility] Clinical Notes 04-07-2021 to 10-28-2024 Jessica Steen [...] Left 2019 OVARIAN CYST REMOVAL Left 05/20/2020 [facility] William VAGINAL DELIVERY REVIEW OF SYSTEMS [...] nursing note reviewed. Exam conducted with a mold hoister present. Vitals: Estimated body mass index is 28.49 kg/m as calculated from the following: Height as of 24: 5' 4 . Weight as of this encounter: 166 lb. BP: 130/80 Patient's last menstrual period was 05/16/2024. ASSESSMENT & PLAN ICD-10-CM 1. Second trimester ([facility]) Z34.92 POCT urinalysis dipstick manually resulted 2. 23 weeks gestation of ([facility]) Z3A.23 3. Diabetes mellitus screening Z13.1 CBC [...] and prior work up for palpitations with [place] cardiology. Plan will be to continue TSH every 4 weeks, EKG and cardiac Echo and follow up with [place] cardiology and a referral will be made she declined Metoprolol at this time. Patient is to return to office in 4 week for routine OB appointment. Documented by Jessica Steen NP on behalf of: Jessica Steen NP documented in this encounter [facility] 09-30-2024 History of Present illness [...] Left 2019 OVARIAN CYST REMOVAL Left 05/20/2020 [facility] William VAGINAL DELIVERY REVIEW OF SYSTEMS [...] nursing note reviewed. Exam conducted with a mold hoister present. Vitals: Estimated body mass index is 28.29 kg/m as calculated from the following: Height as of 24: 5' 4 . Weight as of this encounter: 164 lb 12.8 oz. BP: 110/72 Patient's last menstrual period was 05/16/2024. ASSESSMENT & PLAN ICD-10-CM 1. 19 weeks gestation of ([facility]) Z3A.19 POCT urinalysis dipstick manually resulted 2. Second trimester ([facility]) Z34.92 POCT urinalysis dipstick manually resulted Patient [...] Doc Thomas DO documented in this encounter [facility] 09-02-2024 History of Present illness [...] Left 2019 OVARIAN CYST REMOVAL Left 05/20/2020 [facility] William VAGINAL DELIVERY REVIEW OF SYSTEMS [...] nursing note reviewed. Exam conducted with a mold hoister present. Vitals: Estimated body mass index is 30.21 kg/m as calculated from the following: Height as of 02/26/24: 5' 4 . Weight as of 08/05/24: 176 lb. BP: Patient's last menstrual period was 05/16/2024. ASSESSMENT & PLAN ICD-10-CM 1. Second trimester ([facility]) Z34.92 Alpha fetoprotein, maternal Alpha fetoprotein, maternal POCT urinalysis dipstick manually resulted 2. 15 weeks gestation of ([facility]) Z3A.15 3. Screening, , for anatomic survey ([facility]) Z36.89 US OB 14+ weeks anatomy scan [...] of: ADAN Gonzalez documented in this encounter [facility] 08-05-2024 History of Present illness [...] Left 2019 OVARIAN CYST REMOVAL Left 05/20/2020 [facility] William VAGINAL DELIVERY REVIEW OF SYSTEMS [...] nursing note reviewed. Exam conducted with a mold hoister present. Vitals: Estimated body mass index is 30.21 kg/m as calculated from the following: Height as of 02/26/24: 5' 4 . Weight as of this [...] or undercooked meat, and stay away from [facility]. Patient has been consulted regarding any [...] Doc Thomas DO documented in this encounter [facility] 07-16-2024 History of Present illness [...] Left 2019 OVARIAN CYST REMOVAL Left 05/20/2020 [facility] VAGINAL DELIVERY Allergies Allergen Reactions Azithromycin [...] or undercooked meat, and stay away from [facility]. Patient has also been advised to [...] Aliya Aguilar LPN documented in this encounter [facility] 02-26-2024 History of Present illness [...] Left 2019 OVARIAN CYST REMOVAL Left 05/20/2020 [facility] VAGINAL DELIVERY FAMILY HISTORY: Family History [...] needed at this point. Cosigned by Myron Marroquin DO at 03/02/2024 7:42 AM EST documented in this encounter [facility] 02-19-2024 History of Present illness [...] Iron and TIBC documented in this encounter [facility] 12-27-2023 History of Present illness [...] at this time. documented in this encounter [facility] 12-17-2023 History of Present illness [...] Continue as tolerated. documented in this encounter [facility] 12-09-2023 History of Present illness Narrative Images from the original note were not included. @ENCDATE@ [facility] Matthew is a 23 y.o. female who presents for Pain of the Left Knee HPI: History of Present Illness The patient is a 23-year-old female seen as a new patient to my practice today for her left knee. This is a referral from my partner, Dr. Marroquin. She initially injured her knee exactly a year ago on 12/08/2022, resulting in a torn ACL. The injury occurred while playing football with her . She underwent ACL reconstruction with patellar tendon autograft performed by Dr. Marroquin on 04/23/2023. I personally reviewed the operative report and arthroscopic photos available in Epic. Following the surgery in April 2023, she [...] causes some discomfort. She last saw Dr. Marroquin a month ago and is feeling better [...] Left 2019 OVARIAN CYST REMOVAL Left 05/20/2020 [facility] William VAGINAL DELIVERY FAMILY HISTORY: Family [...] harvest. Joint spaces preserved. MRI left knee [facility] 10/18/2023 report and images reviewed. ACL graft appears intact. No bone bruising in lateral compartment to suggest recent pivot shift injury. Small effusion. Medial meniscus, PCL, PLC, LCL, MCL intact. Signal in lateral meniscus which may be tear vs artifact. No OCD lesions. ASSESSMENT AND PLAN: I reviewed the history, physical exam, diagnostic studies, and diagnosis with the patient. Assessment & Plan 1. 7-1/2 months s/p ACL reconstruction, left knee. The [...] week intermittently. A follow-up appointment with Dr. Marroquin is recommended in a couple of months [...] note was created using voice recognition through [employer] artificial intelligence. documented in this encounter [facility] 09-02-2023 Procedure note [facility] 09-02-2023 History and physical note Note Date/Time September 02, 2023 11:40am [facility] [address] [place] [address] Gastroenterology H&P Signed Patient: Aleta Castro MR#: [id number] : 2000 Acct:[id number] Age/Sex: 23 / F Adm Date: 4 Loc: Room: Type: [facility] Attending Dr: Marcelle Patel DO Copies to: DO Rosalie Orellana MD~ [...] an appropriate candidate for the procedure. Marcelle Patel DO Documented By: Marcelle Patel DO 09/02/23 1139 Signed By: <Electronically signed by Marcelle Patel DO> 09/02/23 1140 [facility] Work Phone: 1(714) 867-702606-17-[address] [facility] [id number] [facility]01-15-2024 Evaluation note* Encounter Date Diagnosis Assessment Notes [...] follow up with PCP if symptoms persist. [facility] Other 06-06-2022 Evaluation note* Encounter Date Diagnosis [...] or concerns Aug, Bronchitis (ICD-10 - J40) [facility] 03-09-2022 Hospital Discharge instructions* Instructions* Artis Yoder, - 05/24/2021 You were seen and evaluated [...] be sent through Care Everywhere. * Contusion (Bur[place]ian) * Knee Pain or Injury ([place]ian) * RICE: General Info ([place]ian) [facility] Work Phone: 1(964) 942-373802-24-2022 Evaluation note* Encounter Date Diagnosis Assessment Notes Treatment Notes Treatment Clinical Notes Apr, Oral thrush (ICD-10 - B37.0) Use medication as directed. Change toothbrush. Follow up with PCP if symptoms do not improve with treatment [facility] Other 02-14-2022 Evaluation note* Encounter Date Diagnosis [...] no improvement in 2 to 3 days. 14 Apr, 2021 Other Additional time spent conducting pre-visit phone call, screening for symptoms, instructions on social distancing, application and removal of PPE, and cleaning of examination room, equipment and supplies was preformed. Patient education given for testing methodology and results. Patient care instructions given in writting by [facility] At Home document. [facility] Other 01-21-2022 Evaluation note* Encounter Date Diagnosis [...] Patient care instructions given in writting by [employer] [facility] At Home document. [facility] Other Evaluation + Plan note Future Appointments Appointment Date:04/23/2023 07:30:00 AM Scheduled Provider: Location:[facility] Diagnosis Closed head injury, initial encounter- Primary documented in this encounter [employer] Phone: evaluation note* Diagnosis Tailbone injury, initial encounter- Primary documented in this encounter [employer] Phone: [email or web address] note* Diagnosis Contusion of left knee, initial encounter- Primary documented in this encounter [facility] Phone: [email or web address] note* Diagnosis Onset Date Resolution Status Diarrhea acute GERD (gastroesophageal reflux disease) acute Lower abdominal pain acute Nausea acute [facility] Work Phone: Evaluation note* Diagnosis Onset Date Resolution Status Diarrhea acute Dysphagia acute GERD (gastroesophageal reflux disease) acute Lower abdominal pain acute Nausea acute [facility] Work Phone: Evaluation note* Diagnosis Acute pain of left knee- Primary Status post arthroscopic reconstruction of anterior cruciate ligament of left knee using quadriceps tendon autograft [facility] Diagnosis Acute pain of left knee- Primary Status post arthroscopic reconstruction of anterior cruciate ligament of left knee using quadriceps tendon autograft [facility]* Diagnosis Acute pain of left knee- Primary Status post arthroscopic reconstruction of anterior cruciate ligament of left knee using quadriceps tendon autograft [facility]* Diagnosis Subclinical hypothyroidism (CMS/HCC)- Primary [...] of (HHS-HCC) Screening, , for anatomic survey ([facility]) Encounter for anatomic survey documented [facility]* Diagnosis 19 weeks gestation of (HHS-HCC) Second trimester (HHS-HCC) state, incidental [facility]* Diagnosis Second trimester (HHS-HCC) state, incidental 23 weeks gestation of ([facility]) Diabetes mellitus screening Screening for diabetes mellitus STD exposure Well woman exam with routine gynecological exam Routine gynecological examination Heart palpitations Palpitations documented in this encounter [facility] Narrative - Reported* Type Description Date Medical History Hypothyroidism Medical History cardiovascular syncope Medical History chronic depression Surgical History left ovarian cyst Hospitalization History child [facility] Other Hospital course Narrative No data available for this section [facility] Attachments The following attachments cannot be sent through Care Everywhere. * Head Injury: Closed: General Info ([place]ian) [facility] Phone: Hospital Discharge instructions* Attachments The following attachments cannot be sent through Care Everywhere. * Coccyx Injury ([place]ian) [facility] Phone: Hospital Discharge instructions No data available for this section [facility] No data available for this [facility] Summary Purpose Family History Relationship Condition [...] section and content) DATE CREATED AUTHOR 09/05/2017 [facility] DATE CREATED AUTHOR AUTHOR'S ORGANIZ ATROYER 09/05/2017 [facility] DATE CREATED AUTHOR AUTHOR'S ORGANIZ ATION 10/28/2019 [facility] DATE CREATED AUTHOR AUTHOR'S ORGANIZ ATION 05/26/2021 [facility] DATE CREATED AUTHOR AUTHOR'S ORGANIZ ATION 05/10/2022 [facility] DATE CREATED AUTHOR AUTHOR'S ORGANIZ ATION 07/24/2022 [facility] Specialist DATE CREATED AUTHOR AUTHOR'S ORGANIZ ATION 05/15/2023 [facility] ical [facility] DATE CREATED AUTHOR AUTHOR'S ORGANIZ ATION 09/11/2023 [facility] y[facility] DATE CREATED AUTHOR AUTHOR'S ORGANIZ ATION 02/08/2024 [facility] DATE CREATED AUTHOR AUTHOR'S ORGANIZ ATION 10/30/2024 [facility] dical Specialists EPIC Reason for Visit (unrecogniz ed section and content) Reason Comments Head Injury headbutted repeated 10 times today around 1255 Headache Nausea Reason Comments Other Pt had a chair pulle d out from under her while at work. Pt fell onto hard ground. Pain in lower back. Reason Comments Knee Pain left knee, was kicke d by resident at [facility] at approx 1930 Specialty Diagnoses / Procedures Referred By Contac t Referred To Contact Physical Therapy Diagnoses Other specified postprocedural states Personal history of other diseases of the musculoskeletal system and connective tissue Procedures CO THERAPEUTIC PX 1/> AREAS EACH 15 MIN EXERCISES Myron Marroquin, DO [address] [facility] [address] [place], [place] Pepe Kirby, PT [address] [place] [address] Referral ID Status Reason Start Date Expiration Date V isits Requested Visits Authorized [id number] Authorized 09/10/2023 03/08/2024 99 99 Reason Comments Follow-up Reason Comments Pain Reason Comments Amenorrhea Reason Comments Routine Visit Reason Comments Routine Visit Scheduled Active and Recently Administ ered Medications (unrecognized section and content) Medication Order 09/17/2020 09/18/2020 09/19/2020 acetaminophen (TYLENOL) tablet 650 mg (COMPLETED) 650 mg, Oral, ONCE, On 7/5/21 at 1615, For 1 dose, Maximum dose [...] chew. 0254 (Given - Provid er: Jen Syed RN) Scheduled Medication Order 05/22/2021 05/23/2021 05/24/2021 naproxen sodium (ANAPROX) tablet 550 mg (COMPLETED) 550 mg, Oral, ONCE, On Sat05/24/21 at 2045, For 1 dose 205 (Given - Provid er: Angelica Epps RN) [...] Care Teams (unrecognized sec tion and content) Chairman Relationship Specialty Start Date End Date Rosalie Payne MD [address] [place] [address] PCP - General 05/24/21 Chairman Relationship Specialty Start Date End Date Rosalie Payne MD [address] [facility] [place] [address] (Fax) PCP - General Family Medicine 07/24/22 Team Status: Active Member Role Status Dates Rosalie Payne MD Primary Care Provider Active Team Status: Inactive Member Role Status Dates Rosalie Payne MD Primary Care Provider Active Start: July 25, 2023 End: July 25, 2023 Marcelle Patel DO Attending Provider Active St art: July 25, 2023 End: July 25, 2023 Team Status: Inactive Member Role Status Dates oRsalie Payne MD Primary Care Provider Active Start: September 02, 2023 End: September 02, 2023 Marcelle Patel DO Attending Provider Active St art: September 02, 2023 End: September 02, 2023 Team Status: Active Member Role Status Dates Rosalie Payne MD Primary Care Provider Active Start: September 02, 2023 Marcelle Patel DO Attending Provider, Other Provider Active Start: September 02, 2023 Chairman Relationship Specialty Start Date End Date Rosalie Payne MD [address] [place] [address] (Fax) PCP - General Family Medicine 07/24/22 Chairman Relationship Specialty Start Date End Date Rosalie Payne MD [address] [facility] [place] [address] (Fax) PCP - General Family Medicine 07/24/22 Chairman Relationship Specialty Start Date End Date Rosalie Payne MD [address] [place] [address] (Fax) PCP - General Family Medicine 07/24/22 Chairman Relationship Specialty Start Date End Date Rosalie Payne MD [address] [place] [address] (Fax) PCP - General Family Medicine 07/24/22 Chairman Relationship Specialty Start Date End Date Rosalie Payne MD [address] [place] [address] (Fax) PCP - General Family Medicine 07/24/22 Chairman Relationship Specialty Start Date End Date Rosalie Payne MD [address] [facility] [place] [address] (Fax) PCP - General Family Medicine 07/24/22 Chairman Relationship Specialty Start Date End Date Rosalie Payne MD [address] [place] [address] (Fax) PCP - General Family Medicine 07/24/22 Chairman Relationship Specialty Start Date End Date Rosalie Payne MD [address] [place] [address] (Fax) PCP - General Family Medicine 07/24/22 Chairman Relationship Specialty Start Date End Date Rosalie Payne MD [address] [facility] [place] [address] (Fax) PCP - General Family Medicine 07/24/22 Chairman Relationship Specialty Start Date End Date Rosalie Payne MD [address] [place] [address] (Fax) PCP - General Family Medicine 07/24/22 Chairman Relationship Specialty Start Date End Date Rosalie Payne MD [address] [place] [address] (Fax) PCP - General Family Medicine 07/24/22 Chairman Relationship Specialty Start Date End Date Rosalie Payne MD [address] [place] [address] (Fax) PCP - General Family Medicine 07/24/22 Rosalie Payne MD [address] [place] [address] (Fax) PCP - [employer] 06/16/20 Chairman Relationship Specialty Start Date End Date Rosalie Payne MD [address] [place] [address] (Fax) PCP - General Family Medicine 07/24/22 Rosalie Payne MD [address] [place] [address] (Fax) PCP - [employer] 06/16/20 Chairman Relationship Specialty Start Date End Date Rosalie Payne MD [address] [place] [address] (Fax) PCP - General Family Medicine 07/24/22 Rosalie Payne MD [address] [place] [address] (Fax) PCP - [employer] 06/16/20 Chairman Relationship Specialty Start Date End Date Rosalie Payne MD [address] [place] [address] (Fax) PCP - General Family Medicine 07/24/22 Rosalie Payne MD [address] [place] [address] (Fax) PCP - [employer] 06/16/20 Chairman Relationship Specialty Start Date End Date Rosalie Payne MD [address] [place] [address] (Fax) PCP - General Family Medicine 07/24/22 Rosalie Payne MD [address] [place] [address] (Fax) PCP - [employer] 06/16/20 Chairman Relationship Specialty Start Date End Date Rosalie Payne MD [address] [place] [address] (Fax) PCP - General Family Medicine 07/24/22 Rosalie Panye MD [address] [place] [address] (Fax) PCP - [employer] 06/16/20 Chairman Relationship Specialty Start Date End Date Rosalie Payne MD [address] [place] [address] (Fax) PCP - General Family Medicine 07/24/22 Rosalie Payne MD [address] [place] [address] (Fax) PCP - [employer] 06/16/20 Chairman Relationship Specialty Start Date End Date Rosalie Payne MD [address] [place] [address] (Fax) PCP - General Family Medicine 07/24/22 Rosalie Payne MD [address] [place] [address] (Fax) PCP - [employer] 06/16/20 Chairman Relationship Specialty Start Date End Date Rosalie Payne MD [address] [place] [address] PCP - General Family Medicine 07/24/22 Rosalie Payne MD [address] [facility] [address] [place] [address] PCP - [employer] 06/16/20 Goals (unrecognized section and content) Goals [...] BE BASED ON THE PRIMARY CLINICAL RECORDS. [facility] [employer] provides no warranty or guarantee of the accuracy or completeness of information in this document.
[2024-11-03 18:30] LABS: Glucose 1 Hour 105 mg/dL (<130)
== END 2024-11-03 15:04 | disposition home or self-care (01) ==
LOC: LAB 15:03
PROVIDERS: PCP Family Medicine; Visit Provider Nurse Practitioner Family
DX: O99.282 Endocrine, nutritional and metabolic diseases complicating pregnancy, second trimester (principal); E03.9 Hypothyroidism, unspecified; Z13.1 Encounter for screening for diabetes mellitus
CPT/HCPCS: 36415; 82950; 84443; 85025

== ENCOUNTER 2024-11-03 15:03 | Outpatient (OUT) | payer BC, SELFPAY ==
--- OUTSIDE RECORDS SUMMARY | 2024-11-03 15:06 | XMS_ITS | Encounter Summary ---
Author Organization [facility] Address [address] [place] [address] Care Team Providers Care Toucher Up Name Role Phone Danny Schuler MD Primary Care Provider Danny Schuelr MD Unavailable [phone] Encounter Details Date Type Department Care Team (Late st Contact Info) Description 02/04/2023 Orders Only [facility] [address] [place] [address] Danny Schuler MD [address] [place] [address] Strep pharyngitis (Primary Dx) Social History Tobacco Use Types Packs/Day Years Used Date Smoking Tobacco: Every Day Smokeless Tobacco: Never Alcohol Use Standard Drinks/Week [...] How often do you attend chur or congregational services? More than 4 times per year 12/11/2022 Do you belong to any clubs o r organizations such as yarsanism groups, unions, fraternal or athletic groups, or [...] medical care, and heating? Somewhat hard 12/11/2022 [facility] of Occupat ional Health - Occupational Stress [...] to sleep or slept in a senior living (including now)? No 12/11/2022 Education Answer Date Recorded What is the highest level of school you have completed or the highest degree you have received? 11th grade 12/10/2022 Comments No Sex and Gender Information Value Date Recorded Sex Assigned at Female 12/10/2022 10:10 AM EDT Legal Sex Female 6:51 PM EDT Gender Identity Female 12/10/2022 10:10 AM EDT Sexual Orientation Not on file COVID-19 Exposure Response Date Recorded In the last 10 days, have yo u been in contact with someone who was confirmed or suspected to have Coronavirus/COVID-19? No / Unsure 01/09/2023 2:16 PM EDT documented as of this encounter Plan of Treatment Upcoming Encounters Date Type Department Care Team (Late st Contact Info) Description 11/25/2024 1:50 PM EDT Routine [facility] [address] [facility] [place] [address] Doc Thomas DO [address] [place] [place], [place] [id number] documented as of this encounter Visit Diagnoses Diagnosis Strep pharyngitis- Primary documented in this encounter Care Teams Toucher Up Relationship Specialty Start Date End Date Danny Schuler MD [address] [place] [address] PCP - General Family Medicine 07/24/22 Danny Schuler MD [address] [place] [address] PCP - [employer] 06/16/20 documented as of this encounter
--- OUTSIDE RECORDS SUMMARY | 2024-11-03 16:18 | XMS_ITS | CCD ---
Author Organization [facility]ini[facility] Care Team Providers Care Analytical Manager Name Role Phone BECERRIL, DAVID P Unavailable [...] Care Provider Pocobed, Myron Washburn Admitting Unavailable PocosMyron Referring Unavailable Pocos, Myron Washburn Attending Unavailable Pocos, Myron Washburn Referring Unavailable Pocos, Myron Washburn Attending Unavailable Myron Marroquin Admitting Unavailable MD Rosalie Payne Primary Care Provider DO Marcelle Patel Attending Provider [phone] Marcelle Patel Attending Unavailable Marcelle Patel Admitting Unavailable Rosalie Payne Primary Care Unavailable Rosalie Payne MD Primary Care Provider Rosalie Payne MD Primary Care Provider [phone] Rosalie Payne MD Unavailable [phone] DOC THOMAS Attending Unavailable PRETTY MCKEON [...] Latex (1 source) Latex Substance Allergy [address] [facility] Macrolides (antibiotic) (1 source) Azithromycin Drug Allergy 1 [facility] (20 sources) Azithromycin; Translations: [azithromycin] Drug Allergy 1 [facility] (10 sources) Latex; Translations: [Latex] Propensity to adverse reactions to drug [address] [facility] (1 source) Azithromycin Drug Allergy 0 [facility] Repository (1 source) natural latex rubber Drug allergy (disorder) [facility] Repository (2 sources) Banana Extract; Translations: [Banana] Drug Allergy Vomiting (disorder) [facility] (20 sources) Midodrine; Translations: [midodrine] Drug Allergy 3 Numbness [facility] (20 sources) Latex Allergy to substance 1 [facility] (1 source) Azithromycin Drug Allergy 4 [facility] Repository (1 source) Latex Drug allergy (disorder) 4 [facility] Repository Medications Current Medications Medication Drug Class(es) Dates Sig (Normalized) Sig (Original) [id number] actuat albuterol 0.09 mg/actuat metered dose [...] disintegrating tablet Indications: Nausea and vomiting during ([facility]) Take 1 tablet (4 mg) by mouth every 6 (six) hours if needed for nausea or vomiting 30 tablet 3 10/05/2024 11/04/2024 Active Start: 08-26-2024 End: 09-30-2024 take 1 tablet by mouth every six hours for nausea ondansetron ODT (Zofran-ODT) 4 MG disintegrating tablet Indications: Nausea and vomiting during ([facility]) Take 1 tablet (4 mg) by mouth [...] mg by mouth daily 0 Active Citalopram Benton bromide Active clotrimazole 10 mg oral lozenge (3 sources) Azole Antifungal Start: 05-11-2021 Clotrimazole 10 MG 1 wenceslao Mouth/Throat Three times a day for 7 day(s) Apr, Not-Taking/PRN medroxyPROGESTERone (4 sources) Progestin Depo-Provera Not-Taking/PRN Depo-Provera Act nicolle metoclopramide 10 mg oral tablet (12 sources) Dopamine-2 Receptor Antagonist Start: 07-16-2024 End: 09-30-2024 metoclopramide (Reglan) 10 MG tablet Indications: Nausea/vomiting in ([facility]) Take 1 tablet (10 mg) by mouth [...] bone disease and musculoskeletal deformities (20 sources) Lamont Schlatter disease; 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 [facility] Comment on above: TESTS RESULT FLAG UN ITS REF RANGE LAB Clinician Provided Cytology Information Source.............Endocervix No. of containers..01 ThinPrep Vial Age Amaris Mon... FLAG LEGEND: L-Low Normal,H-High Normal,LL-Alert Low,HH-Alert High <-Panic Low,>-Panic High,A-Abnormal,AA-Critical Abnormal Performed at: 01 =[facility] [address] [address] Ludy Hector MD, IGP, RFX APTIMA HPV ASCU Note . [facility] Comment on above: TESTS RESULT FLAG UN ITS REF RANGE LAB DIAGNOSIS: 02 NEGATIVE FOR INTRAEPITHELIAL LESION OR MALIGNANCY. THIS SPECIMEN WAS RESCREENED PART OF OUR DAYCARE TEACHER PROGRAM. Specimen adequacy: 02 Satisfactory for evaluation. No endocervical component is identified. Performed by: 02 Brionna Mello, [employer] ([facility]) QC reviewed by: 02 Polina Simons, [employer] . 02 Note: Note 02 The Pap [...] <-Panic Low,>-Panic High,A-Abnormal,AA-Critical Abnormal Performed at: [address] [address] Ludy Hector MD, Performed at: =[facility] [id number] [employer] Business Analyst: Ludy Hector MD, Phone: [phone] Performed at: [address] [id number] [employer]st: Ludy Hector MD, Phone: [phone] [facility] RECURRENT VAGINITIS (HTRX)on 10-30-2024 ATOPOBIUM VAGINAE 0 [facility] ATOPOBIUM VAGINAE Not detected [facility] BVAB 2,3 (BACTERIAL VAGINOSIS ASSOCIATED BACTERIA 2, 3); MOBILUNCUS SPP 0 [facility] BVAB 2,3 (BACTERIAL VAGINOSIS ASSOCIATED BACTERIA 2, 3); MOBILUNCUS SPP Not detected [facility] RICKEY ALBICANS, PARAPSILOSIS, TROPICALIS 0 [facility] RICKEY ALBICANS, PARAPSILOSIS, TROPICALIS Not detected [facility] RICKEY GLABRATA 0 [facility] RICKEY GLABRATA Not detected [facility] RICKEY KRUSEI 0 [facility] RICKEY KRUSEI Not detected [facility] CHLAMYDIA TRACHOMATIS 0 [facility] CHLAMYDIA TRACHOMATIS Not detected [facility] GARDNERELLA VAGINALIS 0 [facility] GARDNERELLA VAGINALIS Not detected [facility] MEGASPHAERA (TYPES 1, 2) 0 [facility] MEGASPHAERA (TYPES 1, 2) Not detected [facility] MYCOPLASMA GENITALIUM 0 [facility] MYCOPLASMA GENITALIUM Not detected [facility] NEISSERIA GONORRHOEAE 0 [facility] NEISSERIA GONORRHOEAE Not detected [facility] TRICHOMONAS VAGINALIS 0 [facility] TRICHOMONAS VAGINALIS Not detected [facility] Urinalysis macro (dipstick) panel (U)on 10-28-2024 Bilirubin, UA Positive Negative - 4(70) +++ mg/dL [facility] Blood, UA Negative Negative - 50 Randall/mcL [facility] Clarity, UA Clear [facility] Color, UA Yellow [facility] Glucose, UA Positive Negative - 2000(110) ++++ mg/dL [facility] Interpretation and review of laboratory results Abnormal [facility] Ketones, UA Positive Negative - 160(16) ++++ mg/dL [facility] Leukocytes, UA Negative Negative - 500+++ Rick/mcL [facility] Nitrite, UA Negative Negative - Positive [facility] pH, UA 6 5 - 9 [facility] Protein, UA Positive Negative - 1999(20) ++++ mg/dL [facility] Spec Grav, UA 1.03 1 - 1.03 [facility] Urobilinogen, UA 0.2 0.2 - 12 mg/dL [facility] US OB CERVICAL LENGTHon 09-16 [place] [address] Ultrasound Report Signed Patient: ALETA CASTRO MR#: [id number] : 2000 Acct:[id number] Age/Sex: 24 / F ADM Date: 10/06/24 Loc: US Attending Dr: Doc Thomas D.O. Ordering Physician: Doc Thomas D.O. Date of Service: 10/06/24 Procedure(s): US OB cervical length Accession Number(s): [id number] cc: Doc Thomas D.O.; ROSALIE PAYNE [address] [address] Patient Name: ALETA CASTRO MRN: [facility]:[id number] date: 2000 Sex: F Assigned Patient Location: US Current Patient Location: US Accession/Order Number: [id number] Exam Date: 10/06/2024 14:25 Report Date: 10/06/2024 [...] Jr., D.O. 10/06/2024 2:26 PM Dictation Location: [place] [address] Electronically authenticated by: [id number] Y Date: 10/06/2024 14:26 Dictated By: Jermaine Nguyễn M.D. Signed By: 10/06/24 1428 DD/ 1426 TD/TT: Auditor Supervisor: [facility] Radiology, Radiologi MD cecelia - 10/06/2024 [place] [address] Ultrasound Report Signed Patient: ALETA CASTRO MR#: [id number] : 2000 Acct:[id number] Age/Sex: 24 / F ADM Date: 10/06/24 Loc: US Attending Dr: Doc Thomas D.O. Ordering Physician: Doc Thomas D.O. Date of Service: 10/06/24 Procedure(s): US OB cervical length Accession Number(s): [id number] cc: Doc Thomas D.O.; ROSALIE PAYNE [place] [id number] Patient Name: ALETA CASTRO MRN: [facility]:[id number] date: 2000 Sex: F Assigned Patient Location: US Current Patient Location: US Accession/Order Number: [id number] Exam Date: 10/06/2024 14:25 Report Date: 10/06/2024 [...] Jr., D.O. 10/06/2024 2:26 PM Dictation Location: [facility] Electronically authenticated by: [id number] Y Date: 10/06/2024 14:26 Dictated By: Jermaine Nguyễn M.D. Signed By: 10/06/248 DD/ 25 TD/TT: Auditor Supervisor: [facility] Radiology Study observation (narrative) [facility] US OB CERVICAL LENGTHOrdered By: Radiologist Radiology on 10-06-2024 [facility] [employer] [employer] Work Phone: US OB 14+ WEEKS ANATOMY [...] UA Negative Negative - 4(70) +++ mg/dL [facility] Blood, UA Negative Negative - 50 Randall/mcL [facility] Clarity, UA Clear [facility] Color, UA Yellow [facility] Glucose, UA Negative Negative - 1999(110) ++++ mg/dL [facility] Interpretation and review of laboratory results Normal [facility] Ketones, UA Negative Negative - 160(16) ++++ mg/dL [facility] Leukocytes, UA Negative Negative - 500+++ Rick/mcL [facility] Nitrite, UA Negative Negative - Positive [facility] pH, UA 6 5 - 9 [facility] Protein, UA Negative Negative - 1999(20) ++++ mg/dL [facility] Spec Grav, UA 1.005 1 - 1.03 [facility] Urobilinogen, UA 1.0 0.2 - 12 mg/dL [facility] ALL THYROID STIM HORMONEon 0 09-28-2024 TSH Qn 0.836 m[IU]/L [facility] Urinalysis macro (dipstick) panel (U)on 09-02-2024 Bilirubin, UA Negative Negative - 4(70) +++ mg/dL [facility] Blood, UA Negative Negative - 50 Randall/mcL [facility] Clarity, UA Clear [facility] Color, UA Yellow [facility] Glucose, UA Negative Negative - 1999(110) ++++ mg/dL [facility] Interpretation and review of laboratory results Normal [facility] Ketones, UA Negative Negative - 160(16) ++++ mg/dL [facility] Leukocytes, UA Negative Negative - 500+++ Rick/mcL [facility] Nitrite, UA Negative Negative - Positive [facility] pH, UA 6 5 - 9 [facility] Protein, UA Negative Negative - 1999(20) ++++ mg/dL [facility] Spec Grav, UA 1.025 1 - 1.03 [facility] Urobilinogen, UA 0.2 0.2 - 12 mg/dL [facility] ALL THYROID STIM HORMONEon 0 08-31-2024 TSH Qn 1.413 m[IU]/L [facility] Urinalysis macro (dipstick) panel (U)on 08-05-2024 Bilirubin, UA Negative Negative - 4(70) +++ mg/dL [facility] Blood, UA Negative Negative - 50 Randall/mcL [facility] Clarity, UA Clear [facility] Color, UA Yellow [facility] Glucose, UA Negative Negative - 1999(110) ++++ mg/dL [facility] Interpretation and review of laboratory results Abnormal [facility] Ketones, UA Positive Negative - 160(16) ++++ mg/dL [facility] Comment on above: 40 Leukocytes, UA Trace Negative - 500+++ Rick/mcL [facility] Nitrite, UA Negative Negative - Positive [facility] pH, UA 6.5 5 - 9 [facility] Protein, UA Negative Negative - 1999(20) ++++ mg/dL [facility] Spec Grav, UA 1.025 1 - 1.03 [facility] Urobilinogen, UA 1.0 0.2 - 12 mg/dL [facility] BOX TESTon 07-18-2024 BOX TEST SENT OUT [facility] BOX1 [facility] BOX2 07/18/24 [facility] DRUG SCREEN RAPID (URINE )on 07-18-2024 AMPHETAMINE SCREEN URINE Negative NEGATIVE [facility] BARBITURATES SCREEN URINE Negative NEGATIVE [facility] BENZODIAZEPINES SCREEN URINE Negative NEGATIVE [facility] BUPRENORPHINE SCREEN URINE Negative NEGATIVE [facility] Comment on above: DRUG CLASS TEST SYST [...] 300 ng/mL CANNABINOID SCREEN URINE Negative NEGATIVE [facility] COCAINE SCREEN URINE Negative NEGATIVE [facility] METHADONE SCREEN URINE Negative NEGATIVE [facility] METHAMPHETAMINES SCREEN URINE Negative NEGATIVE [facility] OPIATE SCREEN URINE Negative NEGATIVE [facility] OXYCODONE SCREEN URINE Negative NEGATIVE [facility] PHENCYCLIDINE SCREEN URINE Negative NEGATIVE [facility] TRICYCLIC ANTIDEPRESSANT URINE Negative NEGATIVE [facility] HCG ( test) Ql (U)o n 07-16-2024 Interpretation and review of laboratory results Abnormal [facility] Preg Test, Ur Positive Negative [facility] US OB TRANSVAGINALon 025 US OB TRANSVAGINAL [...] PHD at 19-Jul-2024 08:55:15 PM [facility] Normal Not Available Comment on above: Order Comment: US OB TRANSVAGINAL No LMP recorded. Urinalysis macro (dipstick) panel (U)on 07-16-2024 Bilirubin, UA Negative Negative - 4(70) +++ mg/dL [facility] Blood, UA Negative Negative - 50 Randall/mcL [facility] Clarity, UA Clear [facility] Color, UA Yellow [facility] Glucose, UA Negative Negative - 1999(110) ++++ mg/dL [facility] Interpretation and review of laboratory results Normal [facility] Ketones, UA Negative Negative - 160(16) ++++ mg/dL [facility] Leukocytes, UA Negative Negative - 500+++ Rick/mcL [facility] Nitrite, UA Negative Negative - Positive [facility] pH, UA 6.5 5 - 9 [facility] Protein, UA Negative Negative - 2000(20) ++++ mg/dL [facility] Spec Grav, UA 1.02 1 - 1.03 [facility] Urobilinogen, UA 1.0 0.2 - 12 mg/dL [facility] CBC W Auto Differential pane l (Bld)on 02-21-2024 Band form neutrophils (Bld) [#/Vol] CANCELED [facility] Comment on above: Result canceled by t ancillary. Band form neutrophils/100 WBC (Bld) CANCELED % [facility] Comment on above: Result canceled by t ancillary. Basophils (Bld) [#/Vol] 19 10*3/uL [facility] Basophils/100 WBC (Bld) 0.4 % [facility] Blasts (Bld) [#/Vol] CANCELED 0 cells/uL [facility] Comment on above: Result canceled by t ancillary. Blasts/100 WBC (Bld) CANCELED % [facility] Comment on above: Result canceled by t ancillary. Eosinophils (Bld) [#/Vol] 91 10*3/uL [facility] Eosinophils/100 WBC (Bld) 1.9 % [facility] Erythrocyte distribution width (RBC) [Ratio] 12.5 % 11.0 - 15.0 % [facility] Hematocrit (Bld) [Volume fraction] 38.9 % 35.0 - 45.0 % [facility] Hemoglobin (Bld) [Mass/Vol] 12.8 g/dL 11.7 - 15.5 g/dL [facility] Lymphocytes (Bld) [#/Vol] 1282 10*3/uL [facility] Lymphocytes/100 WBC (Bld) 26.7 % [facility] MCH (RBC) [Entitic mass] 30.6 pg 27.0 - 33.0 pg [facility] MCHC (RBC) [Mass/Vol] 32.9 g/dL 32.0 - 36.0 g/dL [facility] Comment on above: For adults, a slight decrease in the calculated MCHC value (in the range of 30 to 32 g/dL) is most likely not clinically significant; however, it should be interpreted with caution in correlation with other red cell parameters and the patient's clinical condition. MCV (RBC) [Entitic vol] 93.1 fL 80.0 - 100.0 fL [facility] Metamyelocytes (Bld) [#/Vol] CANCELED 0 cells/uL [facility] Comment on above: Result canceled by t he ancillary. Metamyelocytes/100 WBC (Bld) CANCELED % [facility] Comment on above: Result canceled by t he ancillary. Monocytes (Bld) [#/Vol] 422 10*3/uL [facility] Monocytes/100 WBC (Bld) 8.8 % [facility] Myelocytes (Bld) [#/Vol] CANCELED 0 cells/uL [facility] Comment on above: Result canceled by t he ancillary. Myelocytes/100 WBC (Bld) CANCELED % [facility] Comment on above: Result canceled by t he ancillary. Neutrophils (Bld) [#/Vol] 2986 10*3/uL [facility] Neutrophils/100 WBC (Bld) 62.2 % [facility] Nucleated RBC (Bld) [#/Vol] CANCELED 0 cells/uL [facility] Comment on above: Result canceled by t he ancillary. Nucleated RBC/100 WBC (Bld) [Ratio] CANCELED 0 /100 WBC [facility] Comment on above: Result canceled by t he ancillary. Platelet mean volume (Bld) [Entitic vol] 9.3 fL 7.5 - 12.5 fL [facility] Platelets (Bld) [#/Vol] 291 10*3/uL [facility] Promyelocytes (Bld) [#/Vol] CANCELED 0 cells/uL [facility] Comment on above: Result canceled by t he ancillary. Promyelocytes/100 WBC (Bld) CANCELED % [facility] Comment on above: Result canceled by t he ancillary. RBC (Bld) [#/Vol] 4.18 10*6/uL [facility] Service comment (Unsp spec) [Interp] CANCELED [facility] Comment on above: Result canceled by t ancillary. Variant lymphocytes/100 WBC (Bld) CANCELED 0 - 10 % [facility] Comment on above: Result canceled by t he ancillary. WBC (Bld) [#/Vol] 4.8 10*3/uL [facility] Iron and Iron binding capaci ty panelon 02-21-2024 Iron [Mass/Vol] 101 ug/dL [facility] Iron binding capacity [Mass/Vol] 340 [facility] Iron saturation [Mass fraction] 30 [facility] Laboratory - Chemistry and C hemistry - challengeon 02-21-2024 Albumin [Mass/Vol] 4.8 g/dL 3.6 - 5.1 g/dL [facility] Albumin/Globulin [Mass ratio] 1.8 {ratio} [facility] ALP [Catalytic activity/Vol] 65 U/L 31 - 125 U/L [facility] ALT [Catalytic activity/Vol] 16 U/L 6 - 29 U/L [facility] AST [Catalytic activity/Vol] 14 U/L 10 - 30 U/L [facility] Bilirubin [Mass/Vol] 0.6 mg/dL 0.2 - 1 .2 mg/dL [facility] Calcium [Mass/Vol] 9.3 mg/dL 8.6 - 10. 2 mg/dL [facility] Chloride [Moles/Vol] 107 mmol/L 98 - 11 0 mmol/L [facility] CO2 [Moles/Vol] 24 mmol/L 20 - 32 mmol/L [facility] Cortisol [Mass/Vol] 14.3 ug/dL mcg/dL [facility] Comment on above: Reference Range: For 8 a.m.(7-9 a.m.) Specimen: 4.0-22.0 Reference Range: For 4 p.m.(3-5 p.m.) Specimen: 3.0-17.0 * Please interpret above results accordingly * Creatinine [Mass/Vol] 0.71 mg/dL 0.50 - 0.96 mg/dL [facility] GFR/1.73 sq M.predicted among non-blacks MDRD (S/P/Bld) [Vol rate/Area] 122 mL/min/{1.73_m2} > OR = 60 mL/min/1.73m 2 [facility] Globulin (S) [Mass/Vol] 2.6 g/dL [facility] Glucose [Mass/Vol] 95 mg/dL 65 - 99 mg/dL [facility] Comment on above: Fasting reference interval Potassium [Moles/Vol] 4.2 mmol/L 3.5 - 5.3 mmol/L [facility] Protein [Mass/Vol] 7.4 g/dL 6.1 - 8.1 g/dL [facility] Sodium [Moles/Vol] 139 mmol/L 135 - 146 mmol/L [facility] Urea nitrogen [Mass/Vol] 16 mg/dL 7 - 25 mg/dL [facility] Urea nitrogen/Creatinine [Mass ratio] SEE NOTE: [facility] Comment on above: Not Reported: BUN an d Creatinine are within reference range. Laboratory - Serology - non- microon 02-21-2024 Thyroglobulin Ab Qn 153 [IU]/mL High < or = 1 IU/mL [facility] TPO Ab Qn 27 [IU]/mL High NINF [facility] No Panel Informationon 02-20 Interpretation and review of laboratory results Abnormal [facility] Performing Organizat ion Information Site ID: QTW Name: [facility] Address: [address] [place] [id number] Director: Urvashi Gtz [facility] Performing Organizat ion Information Site ID: QPT Name: [facility] Address: [address] [place] [address], [address] [place] [address] Director: Yonis Beck MD [facility] T3, FREE 02-05-2024 Free T3 [Mass/Vol] 3.6 pg/mL Normal 2.3-4.2 [facility] Comment on above: Performed By: #### 8 32, [address], 867 #### [facility] [place] [address] Soot Blower: Yonis Beck MD T4, FREEon 02-05-2024 Free T4 [Mass/Vol] 1.1 ng/dL Normal 0.8-1.8 [facility] Comment on above: Order Comment: FASTI NG:NO FASTING: NO Performed By: #### 8 99, [address]29, 866 #### [facility] [address], [address] [place], [place] [id number] Soot Blower: Yonis Beck MD TSHon 02-05-2024 TSH Qn 1.98 m[IU]/L Normal [facility] Comment on above: Result Comment: Refe rence Range > or = 20 Years 0.40-4.50 Ranges First trimester 0.26-2.66 Second trimester 0.55-2.73 Third trimester 0.43-2.91 Performed By: #### 8 99, [address]287, 866 #### [facility] [address], [address] [place], [place] [id number] Soot Blower: Yonis Beck MD HCG ( test) IA.rapi d Ql (U)Ordered By: Marcelle Patel on 09-02-2023 HCG ( test) Ql (U) Negative [facility] HCG,Urineon 09-02-2023 Beta HCG ( test) Ql (U) Negative Normal [facility] Comment on above: Result Comment: PERF ORMED BY: [place] [address] PATHOLOGIST OUTPATIENT PROGRAM COORDINATOR RAYMOND SUERO M.D. Performed By: #### U HCG #### [address] 09-02-2023 L Specimen: [id number] Received: 09/03/23 Status: FRANKLYN Yassine Num: [id number] Spec Type: Surgical Subm Dr: Marcelle Patel [...] Location Account Attending Physician Aleta Castro 23/F [id number] Marcelle Patel DO SPEC NUM: [id number] RECD: 09/03/23 STATUS: FRANKLYN GONZALES NUM: [id number] MIRIAM: 09/02/23- SUBM DR: Marcelle Patel DO [...] mild squamous acanthosis and occasionally associated Specimen: [id number] Received: 09/03/23 Status: FRANKLYN Gonzales Num: [id number] Spec Type: Surgical Subm Dr: Marcelle Patel DO Tissues: A Small Intestine - Biopsy/Polyp (SMALL BOWEL BX) B GASTRIC FOR HP (GASTRIC HP) C Esophagus Biopsy (DISTAL ESOPHAGUS) D Esophagus Biopsy (PROXIMAL ESOPHAGUS) E Colon Biopsy (RANDOM RT COLON) F Colon Biopsy (RANDOM LT COLON) Procedures: HE/12, Gross/Micro L4/6, H PYLORI, IHC First AB Patient: Aleta Castro N [id number] (Continued) Specimen: [id number] Received: 09/03/23 (Continued) Pathological Diagnosis (Continued) Signed (signature on file) Nolan Villegas MD 09/05/23 1417 Specimen: [id number] Received: 09/03/23 Status: FRANKLYN Gonzales Num: [id number] Spec Type: Surgical Subm Dr: Marcelle Patel DO Tissues: A Small Intestine - Biopsy/Polyp (SMALL BOWEL BX) B GASTRIC FOR HP (GASTRIC HP) C Esophagus Biopsy (DISTAL ESOPHAGUS) D Esophagus Biopsy (PROXIMAL ESOPHAGUS) E Colon Biopsy (RANDOM RT COLON) F Colon Biopsy (RANDOM LT COLON) Procedures: /12, Gross/Micro L4/6, H PYLORI, IHC First AB Patient: Aleta Castro [id number] (Continued) Specimen: [id number] Received: 09/03/23 (Continued) Pathological Diagnosis (Continued) lymphocytic [...] submitted (more content not included)... Normal [facility] Insurance Correspondence Off iceon 05-08-2023 Insurance Correspondence Office [id number]#1.00TI FF Normal [facility] IntraOperative Documentson 0 04-29-2023 IntraOperative Documents [id number]#1.00TIF F [facility] Postoperative Documentson Postoperative Documents [id number]#1.00TIF F [facility] Main OR Intraoperative Recor don 04-25-2023 Main OR Intraoperative Record IntraOp Document Type FT Summary Primary Physician: Myron Marroquin DO Finalized Date/Time: 04/25/23 09:04:33 Pt. Name: ALETA CASTRO/Sex: 2000 Female Med Rec #: [id number] Physician: Myron Marroquin DO Financial #: [id number] Pt. Type: A Room/Bed: [address] [address] Admit/Disch: 04/23/23 06:25:15 - 04/23/23 14:50:00 Institution: [...] assist with the block. Patient's heartrate 89, vs18-661% on room air. patient tolerated block well. [...] Haas Role Performed Anesthesiologist Surgeon - Primary Java Analyst - Primary Plaster Model And Mold Maker Time In 04/23/23 08:50:00 04/23/23 09:15:00 04/23/23 08:50:00 Time Out 04/23/23 10:59:00 04/23/23 10:44:00 04/23/23 10:59:00 Procedure KNEE ARTHROSCOPY W/ ACL KNEE ARTHROSCOPY W/ ACL KNEE ARTHROSCOPY W/ ACL REPAIR(Left) REPAIR(Left) REPAIR(Left) Comments , anesthesia supervisor mapping Last Modified By: Souleymane MCQUEEN, Lyle Comer RN, Lyle Comer RN, Lyle Haas 04/23/23 10:59:32 04/23/23 10:59:32 04/23/23 10:59:32 Entry 4 Entry 5 Entry 6 Case Attendee Regulo Rodgers, Blanca Camacho CST, Garry Elizabeth Performed Staff - Other Scrub - Primary BENEFITS ADVISOR/SA Time In 04/23/23 08:50:00 04/23/23 08:50:00 04/23/23 [...] [address]y Way, Given Participants Pocos DO, Jc, JeromeLyle hopkins RN, Troike, Kendall R, Miller, Laura [...] Text: Implements (more content not included)... Normal [facility] Consent for Anesthesiaon Consent for Anesthesia [id number]#1.00T IFF Normal [facility] Discharge Instructionson Discharge Instructions [id number]#1.00T IFF Normal [facility] IntraOperative Documentson 0 04-24-2023 IntraOperative Documents [id number]#1.00T IFF Normal [facility] Operative Reporton Operative Report SURGERY DATE: 2023 TALENT CONSULTANT: Garry Camacho CST PREOPERATIVE DIAGNOSIS: Left knee anterior cruciate ligament tear POSTOPERATIVE DIAGNOSIS: Left knee anterior cruciate ligament tear OPERATION: Left knee diagnostic operative arthroscopy with autograft ixrz-gwaibc-qcnf anterior cruciate ligament reconstruction with InternalBrace augmentation ANESTHESIA: General as well as regional block ANESTHESIOLOGIST: KARTHIKEYAN Peacock ESTIMATED BLOOD LOSS: 10 mL INTRAVENOUS FLUIDS: Please see the operative record SPECIMEN: None COMPLICATIONS: None IMPLANTS: Arthrex eytv-[id number]-[id number] Tightrope system with the button for the [...] The anterior cruciate ligament was reconstructed using wxbs-bqodat-oslr from patellar tendon autograft with this InternalBrace [...] over reaming with a 10 mm barrel endshaker adjuster. Excess bone debris is again removed. The [...] on the femo (more content not included)... [facility] Comment on above: Result Comment: Elec tronically Signed By: Myron Marroquin DO\.br\Date and Time Signed: 04/24/23 07:15 EST Preoperative Documentson Preoperative Documents [id number]#1.00T IFF [facility] Consent for Procedure/Surger yon 04-23-2023 Consent for Procedure/Surgery [id number]#1.00TIF F [facility] Consent for Treatmenton Consent for Treatment [id number]#1.00TIF F [facility] Discharge Instructionson Discharge Instructions ALETA CASTRO [...] been scheduled. Call for any problems. Where: [address] [place] [id number]- SpinNote (1) Medications What How Much When Instructions Next Dose New acetaminophen-oxycodone (Percocet 5 mg-325 mg oral tablet) 1 Tablets By Mouth As Directed 1-2 po Q4-6h prn pain Dx: S83.512D Duration: 7 days Pickup at [facility]/pharmacy #[id number] New aspirin (Ecotrin 325 mg Tab-EC) 1 Tablets By Mouth Every day Pickup at [facility]/pharmacy #2347 Pharmacy Information [facility]/pharmacy #[id number]: [address] [place], [place] [phone] Allergies Banana (Throat tightness, Hives, Vomiting) Latex (Hives, Swelling) azithromycin (Hives) midodrine (Numbness) Education Materials [place], [place] [facility] DISCHARGE INSTRUCTIONS: ANTERIOR CRUCIATE [...] concerns. ___ Myron Marroquin DO [facility] [address] [place] [address] Reviewed: 06-23 Revised: 03/29 Common Emergency Awareness [...] share your experie (more content not included)... [facility] Comment on above: Result Comment: Elec tronically Signed By: Marcelo MCQUEEN, Shyla Acevedo\.ammy\Date and Time Signed: 04/23/23 10:58 EST H&P Updateon 04-23-2023 H&P Update [id number]#1.00TIF F [facility] Main OR PACU I Recordon Main OR PACU I Record PACU Phase I Document Type FT Summary Primary Physician: Myron Marroquin DO Finalized Date/Time: 04/23/23 12:22:33 Pt. Name: ALETA CASTRO/Sex: 2000 Female Med Rec #: [id number] Physician: Myron Marroquin DO Financial #: [id number] Pt. Type: A Room/Bed: [place] [address] Admit/Disch: 04/23/23 06:25:15 - Institution: Case Times [...] Signed By: Valencia Jimenez RN 04/23/23 12:22 [facility] Main OR Preoperative Recordo n 04-23-2023 Main OR Preoperative Record PreOp Document Type FT Summary Primary Physician: Myron Marroquin DO Finalized Date/Time: 04/23/23 08:50:41 Pt. Name: ALETA CASTRO /Sex: 2000 Female Med Rec #: [id number] Physician: Myron Marroquin DO Financial #: [id number] Pt. Type: A Room/Bed: [facility] Admit/Disch: 04/23/23 06:25:15 - Institution: Case [...] Signed By: Lyle Comer RN 04/23/23 08:50 [facility] Monitor Recordon 04-23-2023 Monitor Record [id number]#1.00TI FF [facility] Operative Reporton Operative Report Patient: AILEEN [...] Using maximal sterile barrier technique per current [facility] guidelines including hand hygeine, Guidance (Ultrasound [...] patient tolerated the procedure as expected. Normal [facility] Comment on above: Result Comment: Elec tronically Signed By: [facility] ()Cyrus\.br\Date and Time Signed: 04/23/23 07:56 EST Patient Education - Texton 0 04-23-2023 Patient Education - Text [place], [place] [facility] DISCHARGE INSTRUCTIONS: ANTERIOR CRUCIATE [...] concerns. ___ Myron Marroquin DO [facility] [address] [place] [address] Reviewed: 06-23 Revised: 03/29 [facility] Progress Note-Physicianon Progress Note-Physician Patient: ALETA [...] Daily, # 21 tab(s), Refills(s) 0, Pharmacy: [facility]/pharmacy #[id number], 165, cm, 04/04/23 6:11:00 EST, Height/Length Dosing, 78, kg, 04/04/23 6:11:00 EST, Weight Dosing Percocet 5 mg-325 mg oral tablet: 1 tab(s), Oral, As Directed, 40 tab(s), Refill(s) 0, 1-2 po Q4-6h prn pain Dx: S83.512D Duration: 7 days, [facility]/pharmacy #[id number], 165, cm, 04/04/23 6:11:00 EST, Height/Length Dosing, 78, kg, 04/04/23 6:11:00 EST, Weight Dosing, Home Medications (2) Active Ecotrin 325 mg Tab-EC 325 mg = 1 tab(s), Oral, Daily Percocet 5 mg-325 mg oral tablet 1 tab(s), Oral, As Directed Problem list: All Problems H/O: hypothyroidism / SNOMED CT 622980090 / Confirmed POTS (postural orthostatic tachycardia syndrome) / SNOMED CT 2624353547 / Confirmed Physical Examination Vital Signs 04/23/2023 [...] Pressure 1 (more content not included)... Normal [facility] Comment on above: Result Comment: Elec tronically Signed By: [facility] ()Cyrus\.br\Date and Time Signed: 04/23/23 11:06 EST Progress Note-Physician Patient: ALETA CASTRO Age: 22 years Sex: Female : 2000 Associated Diagnoses: None Author: Myron Marroquin DO Postoperative Information Procedure: L knee scope, ACL recon Preoperative Diagnosis: L ACL tear. Postoperative Diagnosis: same. Performed by: daniel. Plaster Model And Mold Maker: Roby Camacho. Specimens Removed: none. Prosthesis: Arthrex. . Estimated Blood Loss: 10 ml. Complications: None. Anesthesia type: General, block. Normal [facility] Comment on above: Result Comment: Elec tronically [...] Daily, # 21 tab(s), Refills(s) 0, Pharmacy: [facility]/pharmacy #2345, 165, cm, 04/04/23 6:11:00 EST, Height/Length [...] All Problems H/O: hypothyroidism / SNOMED CT 668122273 / Confirmed POTS (postural orthostatic tachycardia syndrome) / SNOMED CT 1922870542 / Confirmed, Active Problems (2) H/O: hypothyroidism POTS (postural orthostatic tachycardia syndrome) Histories Past Medical History: No active or resolved past medical history items have been selected or recorded. Family History: No family history items have been selected or recorded. Procedure history: Laparoscopic left ovarian R/o (4777242647). Ovarian cyst removal (681242074). Social History Social & Psychosocial Habits Alcohol [...] U beta hCG Ql Negative . Plan [place] [employer] Anesthesiologists (ASA) physical status classification: Class II. Anesthetic Preoperative Plan: Anesthesia General. Regional Adductor Canal Block Left. Normal [facility] Comment on above: Result Comment: Elec tronically Signed By: [facility] ()Cyrus\.br\Date and Time Signed: 04/23/23 07:41 EST U BetaHcg Qualon 04-23-2023 HCG.beta subunit (U) [Moles/Vol] Negative Normal [facility] Comment on above: Performed By: #### 2 [id number] ####[facility] [id number] [place] [address] Consent for Procedure/Surger yon 04-16-2023 Consent for Procedure/Surgery [id number]#1.00TIF F Normal [facility] CBC w/ Auto Diffon 4 Basophil Absolute 0.0 E9/L Normal 0.0-0.2 [facility] Comment on above: Performed By: #### 2 [id number] ####[address] [place] [address] Basophils/100 WBC (Bld) 0.4 % Normal 0.0-2.0 [facility] Comment on above: Performed By: #### 2 780566 ####[address] [address] Eos Absolute 0.1 E9/L Normal 0.0-0.5 [facility] Comment on above: Performed By: #### 2 648285 ####[address] [address] Eosinophils/100 WBC (Bld) 1.0 % Normal 0.0-8.0 [facility] Comment on above: Performed By: #### 2 743373 ####[address] [address] Erythrocyte distribution width (RBC) [Ratio] 12.6 % Normal 10.9-14.2 [facility] Comment on above: Performed By: #### 2 550856 ####[address] [address] Hematocrit (Bld) [Volume fraction] 39.0 % Normal 34.0-46.0 [facility] Comment on above: Performed By: #### 2 787901 ####[address] [address] Hemoglobin (Bld) [Mass/Vol] 13.1 g/dL Normal 12.0-16.0 [facility] Comment on above: Performed By: #### 2 785591 ####[address] [address] Lymph Absolute 1.4 E9/L Normal 1.0-4.0 [facility] Comment on above: Performed By: #### 2 275219 ####[address] [address] Lymphocytes/100 WBC (Bld) 22.2 % Normal 14.0-50.0 [facility] Comment on above: Performed By: #### 2 937915 ####[address] [address] MCH (RBC) [Entitic mass] 30.6 pg Normal 27.0-34.0 [facility] Comment on above: Performed By: #### 2 052536 ####[address] [address] MCHC (RBC) [Mass/Vol] 33.7 g/dL Normal 31.4-36.0 [facility] Comment on above: Performed By: #### 2 195719 ####[address] [address] MCV (RBC) [Entitic vol] 91.0 fL Normal 80.0-100.0 [facility] Comment on above: Performed By: #### 2 047843 ####[address] [address] [place] Absolute 0.4 E9/L Normal 0.2-1.0 [facility] Comment on above: Performed By: #### 2 055780 ####[address] [address] Monocytes/100 WBC (Bld) 5.6 % Normal 4.0-14.0 [facility] Comment on above: Performed By: #### 2 121049 ####[address] [address] Neutro Absolute 4.6 E9/L Normal 2.0-7.5 [facility] Comment on above: Performed By: #### 2 787126 ####[address] [address] Neutro Auto 70.8 % Normal 36.0-75.0 [facility] Comment on above: Performed By: #### 2 907642 ####[address] [address] Platelet 312.0 E9/L Normal 150.0-500.0 [facility] Comment on above: Performed By: #### 2 413131 ####[address] [place] [address] Platelet mean volume (Bld) [Entitic vol] 7.7 fL Normal 6.4-10.8 [facility] Comment on above: Performed By: #### 2 772692 ####[facility] [id number] [place] [address] RBC 4.3 E12/L Normal 4.3-5.9 [facility] Comment on above: Performed By: #### 2 234636 ####[facility] [id number] [place] [address] WBC 6.5 E9/L Normal 4.0-11.0 [facility] Comment on above: Performed By: #### 2 396403 ####[facility] [id number] [place] [address] Consent for Treatmenton 03-18 Consent for Treatment [id number]#1.00TIF F Normal [facility] HEMATOLOGYOrdered By: SYSTEM SYSTEM on 04-03-2023 Basophil [...] Normal 80.0 - 100.0 fL Remisol Heme [place] Absolute 0.4 E9/L Normal 0.2 - 1.0 [...] (COVID-19) RNA QUEENIE+probe Ql (Unsp spec) Negative [facility] Records Other COVID/FLU/RSV RT-PCR Negative [employer] Other Quick Strepon 04-01-2023 S. pyogenes Org specific cx Ql (Throat) Negative [facility]add[facility] Records Other Quick Strep Nicholas Haddox Records Other US Gallbladderon 07-23-2022 US Gallbladder Clinical [...] by Cornelius Mary on 07/23/2022 1043 Normal [facility] Stone Repairer PAP ACOG PANEL 2: 21 to 29on 05-09-2022 . . Normal [facility] Comment on above: Performed By: #### 4 130654 #### [facility] [address] [address] [address] Yovanny Villegas Age Gdln ACOG Testing - Normal [facility] Comment on above: Performed By: #### 4 756643 #### [facility] [address] [place] [address] Dr. Yovanny Villegas DIAGNOSIS: Comment [facility] Comment on above: Result Comment: NEGA TIVE FOR INTRAEPITHELIAL LESION OR MALIGNANCY. Performed By: #### 4 133596 #### [facility] [address] [place] [address] Dr. Yovanny Villegas Methodology: Comment [facility] Comment on above: Result Comment: This liquid based ThinPrep(R) pap test was screened with the use of an image guided system. Performed By: #### 4 [id number] #### [facility] [address] [place] [address] Dr. Yovanny Villegas Note: Comment [facility] Comment on above: Result Comment: The Pap smear is a screening test designed to aid in the detection of premalignant and malignant conditions of the uterine cervix. It is not a diagnostic procedure and should not be used as the sole means of detecting cervical cancer. Both false-positive and false-negative reports do occur. . Performed By: #### 4 [id number] #### [facility] [address] [address] [address] Yovanny Villegas Performed by: Comment Normal [facility] [place] Comment on above: Result Comment: Yanira Navarrete, Drum Stock Clerk (ASCP) Performed By: #### 4 [id number] #### [facility] [address] [place] [address] Dr. Yovanny Villegas Reflex Criteria: Comment Normal [facility] Comment on above: Result Comment: The HPV DNA reflex criteria were not met with this specimen result therefore, no HPV testing was performed. . Performed By: #### 4 846961 #### [facility] [address] [place] [address] Dr. Yovanny Villegas Specimen adequacy: Comment Normal [facility] Comment on above: Result Comment: Sati sfactory for evaluation. Endocervical and/or squamous metaplastic cells (endocervical component) are present. Performed By: #### 4 [id number] #### [facility] [address] [place] [address] Dr. Yovanny Villegas CHLAMYDIA/GONOCOCCUS QUEENIE (SW AB/URINE/PAPon 07-28-2021 Chlamydia trachomatis, QUEENIE Negative Normal Negative [facility] Comment on above: Performed By: #### C T/NGNA #### [facility] [address] [place] [address] Dr. Yovanny Villegas Neisseria gonorrhoeae, QUEENIE Negative Normal Negative [facility] Comment on above: Performed By: #### C T/NGNA #### [facility] [address] [place] [address] Dr. Yovanny Villegas VAGINITIS/VAGINOSIS DNA PROB Anders 07-27-2021 Rickey species Negative Normal Negative [facility] Comment on above: Performed By: #### V AGINT #### [facility] [address] [place] [address] Dr. Yovanny Villegas Gardnerella vaginalis Negative Normal Negative [facility] Comment on above: Performed By: #### V AGINT #### [facility] [address] [place] [address] Dr. Yovanny Villegas Trichomonas vaginalis Negative Normal Negative [facility] Comment on above: Performed By: #### V AGINT #### [facility] [address] [place] [address] Dr. Yovanny Villegas XR KNEE LEFT (3 [...] Deshaun Aguilar MD 05/24/21 Final result Normal [facility] No fracture or dislocation. [facility] EXAMINATION: THREE XRAY VIEWS OF THE LEFT KNEE 05/24/2021 8:48 pm COMPARISON: None. HISTORY: ORDERING SYSTEM PROVIDED HISTORY: pain eval occult bony injury TECHNOLOGIST PROVIDED HISTORY: pain eval occult bony injury FINDINGS: No fracture, dislocation, or focal osseous lesion is noted. No significant soft tissue abnormality seen. [facility] Deshaun Aguilar MD - 05/24/2021 EXAMINATION: THREE XRAY VIEWS OF THE LEFT KNEE 05/24/2021 8:48 pm COMPARISON: None. HISTORY: ORDERING SYSTEM PROVIDED HISTORY: pain eval occult bony injury TECHNOLOGIST PROVIDED HISTORY: pain eval occult bony injury FINDINGS: No fracture, dislocation, or focal osseous lesion is noted. No significant soft tissue abnormality seen. IMPRESSION: No fracture or dislocation. [employer] Phone: Radiology Study observation (narrative) [employer] Phone: XR KNEE LEFT (3 VIEWS)Ordere d By: Deshaun Aguilar on 05-24-2021 [employer] Phone: COVID Quick Testingon 2021 Result Negative [facility] Records Other Quick Strepon 05-01-2021 S. pyogenes Org specific cx Ql (Throat) Positive [facility] Records Other Quick Strep [facility] Records Other COVID Quick Testingon 2021 Result Negative [facility] Records Other Quick Fluon 04-07-2021 FLUAV Ab CF (S) [Titer] Negative [facility] Records Other FLUBV Ab CF (S) [Titer] Negative [facility] Records Other XR SACRUM COCCYX (MIN 2 VIEW S)on 12-14-2020 XR SACRUM COCCYX (MIN 2 VIEWS) EXAMINATION: THREE XRAY VIEWS OF THE SACRUM/COCCYX 12/14/2020 3:10 am COMPARISON: None. HISTORY: ORDERING SYSTEM PROVIDED HISTORY: fall at work - hit [id number] TECHNOLOGIST PROVIDED HISTORY: fall at work - hit [id number] FINDINGS: The sacroiliac joints are normally aligned. The visualized portions the pelvis are. There is no fracture of the sacrum or coccyx evident. IMPRESSION: No acute osseous abnormality of the sacrum or coccyx evident. Interpreted by: Loc Oswald MD Signed by: Loc Oswald MD 12/14/20 Final result Normal [facility] XR SACRUM COCCYX (MIN 2 VIEW S)Ordered By: David Dominguez on 12-14-2020 No acute osseous abnormality of the sacrum or coccyx evident. [employer] Phone: EXAMINATION: THREE X RAY VIEWS OF THE SACRUM/COCCYX 12/14/2020 3:10 am COMPARISON: None. HISTORY: ORDERING SYSTEM PROVIDED HISTORY: fall at work - hit [id number] TECHNOLOGIST PROVIDED HISTORY: fall at work - hit [id number] FINDINGS: The sacroiliac joints are normally aligned. The visualized portions the pelvis are. There is no fracture of the sacrum or coccyx evident. [employer] Phone: [employer], pn Incoming Radiant Results From [employer] - 12/14/2020 3:24 AM EDT EXAMINATION: THREE XRAY VIEWS OF THE SACRUM/COCCYX 12/14/2020 3:10 am COMPARISON: None. HISTORY: ORDERING SYSTEM PROVIDED HISTORY: fall at work - hit [id number] TECHNOLOGIST PROVIDED HISTORY: fall at work - hit [id number] FINDINGS: The sacroiliac joints are normally aligned. The visualized portions the pelvis are. There is no fracture of the sacrum or coccyx evident. IMPRESSION: No acute osseous abnormality of the sacrum or coccyx evident. [employer] Phone: [employer] Phone: CT HEAD WO CONTRASTon 2020 CT [...] Maira Cruz MD 09/19/20 Final result Normal [facility] CT Head WO ContrastOrdered B y: Luis Carlos Fragoso on 09-19-[address] examination of the brain. [employer] Phone: EXAMINATION: CT OF T HE HEAD [...] of the visualized skull or soft tissues. [employer] Phone: Cuauhtemoc, Mhpn Incoming Radiant Results From [employer] [employer] - 09/19/2020 4:42 PM EDT EXAMINATION: CT [...] Unremarkable noncontrast CT examination of the brain. [employer] Work Phone: [employer] Work Phone: Coding Summaryon 10-27-2019 Coding Summary CODING DATE: 020 FINAL [facility] STATUS: Home PAYOR: [facility] ADMIT DX: REASON FOR VISIT DX: J02.9 [...] Pablo Date Saved: 10/27/2019 03:10 pm Normal [facility] 2019 Novel Coronavirus (CoVI D-19), [facility]ENIE LCon 10-26-2019 SARS-CoV-2, [facility]EN[facility] (COVID-19) LC Not Detected Not Detected [facility] Comment on above: Order Comment: [id number] Result Comment: This test was developed and its performance characteristics determined by [employer]. This test has not been FDA cleared [...] detected) result in this assay. Performed At: [facility] [address] [facility] [place] [id number] Ruba Washburn MD Ph:[phone] Performed By: #### 6 [id number] #### [facility] (DEFAULT) [address] [place] [address] Consent Formson 10-26-2019 Consent Forms [id number]#1.00OTG TIFF Normal [facility] CNCOon 07-15-2017 CNCO Letter TextToll Free : [phone] [facility] - [address] [address]Wlktp: [phone]: [facility] [place], [place] [address]Aisnv: [phone]: [facility] - [address] [place], [place] [address]Wzsty: [phone]: Steve Pablo M.D., Jonna Castro M.D.Timothy J Adamowicz, D.O..Carin Hoover M.D. Matthew Huff M.D.Date: July 15, 2017Re: Aleta Elliott WHOM IT MAY CONCERN:She was seen in our office today.Sincerely,Katelin Cardona PSR(signed electronically to expedite mailing) Normal [facility] CNOVSPon 07-15-2017 CNOVSP Visit (SP) Office (HEMACL) SYEDA GARAY JANESSA ([id number]) 89 FDate Time Provider Department07/15/17 3:15 PM [...] well-hydrated,well nourishedNeuro: Gait normal.Collected: 05/15/17 1043Resulting lab: [facility]ORYValue: (NOTE)Comment: Performing Pathologist: Jo-Ann [...] list. no changes .Referring Provider: DAVID BECERRIL [[id number]]Allergies As of Date: 07/15/2017(No Known Allergies)Date Reviewed: 07/15/2017Reviewed by: Giovana Norton - Fully AssessedReason for Visit: storage pool disease [Other] Cmt: follow upPrimary Visit Diagnosis:Abnormal laboratory test [R89.9]Disposition: Return if symptoms worsen or fail to improve.Follow-up and Disposition History RecordedPrescriptions as of 07/15/2017 Sig: FLUDROCORTISONE 0.1 MG TABLET Take 0.1 mg by mouth once chrsitiano* LEVOTHYROXINE 125 MCG TABLET TAKE 1 TABLET [...] by DAVID BECERRIL MD on 07/17/17 Normal [facility] PROGRESSon 07-15-2017 PROGRESS HNO ID: [id number]: David LylessService: (none)Author Type: PhysicianType: Progress NotesFiled: [...] well nourishedNeuro: Gait normal.Collected: 05/15/17 1043Resulting lab: [facility]ORYValue: (NOTE)Comment: Performing Pathologist: Jo-Ann [...] consider further testingAled Sandeep Becerril MD Normal [facility] Platelet Func Scrnon 018 COL/ADP Cartridge 85 CT (sec) Normal <118 [facility] Comment on above: Result Comment: Resu lts are reported as Closure Time (CT) in seconds. Performed By: #### P LTSCP ####[facility] [address]CO[address] [place], [place] [phone] COL/EPI Cartridge 105 CT (sec) Normal <199 [facility] Comment on above: Result Comment: Resu lts are reported as Closure Time (CT) in seconds. Performed By: #### P LTSCP ####[facility] [address]COxford [address], [place] [phone] Plt Func Scr Interp (NOTE) Normal [facility] Comment on above: Result Comment: Perf orming [...] bleeding disorder. Performed By: #### P LTSCP ####[facility] [address]CO[address], [place] [phone] Remote CBCDIF (for [facility] use o nly)on 05-15-2017 Abs Baso <0.03 Normal <0.11 [facility] Comment on above: Performed By: #### R CBCDF ####[facility] [address]CJames [place] [phone] Abs [place] 0.53 k/uL Normal <0.87 [facility] Comment on above: Performed By: #### R CBCDF ####[address] [phone] Abs Neut 2.59 k/uL Normal 1.45-7.50 [facility] Comment on above: Performed By: #### R CBCDF ####[place] [address] [address] [phone] Basophils/100 WBC Auto (Bld) 0.4 % Normal [facility] Comment on above: Performed By: #### R CBCDF ####[place] [phone] DTYPE Auto Diff Normal [facility] Comment on above: Performed By: #### R CBCDF ####[place] [phone] Eosinophils 0.07 10*3/uL Normal <0.46 [facility] Comment on above: Performed By: #### R CBCDF ####[place] [phone] Eosinophils/100 leukocytes 1.5 % Normal [facility] Comment on above: Performed By: #### R CBCDF ####[place] [phone] Erythrocyte distribution width Auto Ratio (RBC) 12.2 % Normal 11.5-15.0 [facility] Comment on above: Performed By: #### R CBCDF ####[place] [phone] Erythrocytes (RBC) 4.15 10*6/uL Normal 3.90-5.20 [facility] Comment on above: Performed By: #### R CBCDF ####[place] [phone] Erythrocytes (RBC) 0.0 /100 WBC Normal 0 [facility] Comment on above: Performed By: #### R CBCDF ####[place] [address] [address] [place], [place] [phone] Erythrocytes (RBC) 10*6/uL Normal <0.01 [facility] Comment on above: Performed By: #### R CBCDF ####[place] [address] [address] [place] [phone] Hematocrit (HCT) 39.4 % Normal 36.0-46.0 [facility] Comment on above: Performed By: #### R CBCDF ####[place] [address] [address] [place] [phone] Hemoglobin mass conc (Bld) 12.8 g/dL Normal 11.5-15.5 [facility] Comment on above: Performed By: #### R CBCDF ####[place] [address] [address] [phone] Lymphocytes 1.37 10*3/uL Normal 1.00-4.00 [facility] Comment on above: Performed By: #### R CBCDF ####[place] [address] [address] [place] [phone] Lymphocytes/100 leukocytes 29.9 % Normal [facility] Comment on above: Performed By: #### R CBCDF ####[place] [address] [address] [place] [phone] MCH 30.8 pG Normal 26.0-34.0 [facility] Comment on above: Performed By: #### R CBCDF ####[place] [address] [address] [place], [place] [phone] MCHC mass conc (RBC) 32.5 g/dL Normal 30.5-36.0 [facility] Comment on above: Performed By: #### R CBCDF ####[place] [address] [address] [place], [place] [phone] MCV 94.9 fL Normal 80.0-100.0 [facility] Comment on above: Performed By: #### R CBCDF ####[facility] [place], [place] [phone] Monocytes/100 leukocytes 11.6 % Normal [facility] Comment on above: Performed By: #### R CBCDF ####[facility] [place], [place] [phone] Neutrophils/100 WBC Auto (Bld) 56.6 % Normal [facility] Comment on above: Performed By: #### R CBCDF ####[address] [phone] Platelet mean volume (PMV) 10.2 fL Normal 9.0-12.7 [facility] Comment on above: Performed By: #### R CBCDF ####[address] [phone] Platelets 229 10*3/uL Normal 150-400 [facility] Comment on above: Performed By: #### R CBCDF ####[place] [address] [place], [place] [phone] WBC (Leukocytes) 4.58 10*3/uL Normal 3.70-11.00 [facility] Comment on above: Performed By: #### R CBCDF ####[place] [address] [place], [place] [phone] CNCOon 04-29-2017 CNCO Letter TextToll Free : [phone] [facility] - [address] [place], [place] [address]Fmvji: [phone]: [facility] - [address] [place], [place] [address]Oqzsx: [phone]: [facility] [place], [place] [address]Hfamm: [phone]: Steev Pablo M.D., Ronaldo Marquez M.D.David Becerril M.D.Papito Sood D.O..Carin Hoover M.D. FACROSaju A. Rajan, M.D.Date: April 29, 2017Re: Aleta Elliott WHOM IT MAY CONCERN:She was seen in our office today.Sincerely,Karly Pizarro Psr(signed electronically to expedite mailing) Normal [facility] CNOVSPon 04-29-2017 CNOVSP Visit (SP) Office (HEMACL) SYEDA GARAY JANESSA ([id number]) 89 FDate Time Provider Department04/29/17 2:30 PM [...] patientand her mother at length. Would check [id number] at this time, further testingbased on results.1. [...] (HCC) [D69.1]Order(s):PLATELET FUNCTION SCREEN [SQPLTSCP] Order #: [id number] FUTURE CBC + DIFF (FOR REMOTE [facility] USE) [SQRCBCDF] Order #: [id number] FUTUREDisposition: Return in about 6 weeks (around [...] by DAVID BECERRIL MD on 04/29/17 [facility] PROGRESSon 04-29-2017 PROGRESS HNO ID: [id number]: David Escaleraervice: (none)Author Type: PhysicianType: Progress NotesFiled: [...] and her mother at length. Would check [id number] at this time, furthertesting based on results.1. 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, choice of management likely to be influenced by history ofPOTSAlfred Sandeep Becerril MD Normal [facility] Vital Signs Date Time Vital Sign Value Performing Clinician Facility 10-28-2024 14:39-0400 Body mass index (BMI) [Ratio] 28.49 kg/m2 Pretty ARELLANO Work Phone: [facility] 10-28-2024 14:39-0400 Body weight 75.3 kg Pretty ARELLANO Work Phone: [facility] 10-28-2024 14:39-0400 Diastolic blood pressure 80 mm[Hg] Pretty ARELLANO Work Phone: [facility] 10-28-2024 14:39-0400 Systolic blood pressure 130 mm[Hg] Pretty ARELLANO Work Phone: [facility] 09-30-2024 15:34-0400 Body mass index (BMI) [Ratio] 28.29 kg/m2 Doc William DO Work Phone: [facility] 09-30-2024 15:34-0400 Body weight 74.75 kg Doc William DO Work Phone: [facility] 09-30-2024 15:34-0400 Diastolic blood pressure 72 mm[Hg] Doc William DO Work Phone: [facility] 09-30-2024 15:34-0400 Systolic blood pressure 110 mm[Hg] Doc William DO Work Phone: [facility] 08-05-2024 14:27-0400 Body mass index (BMI) [Ratio] 30.21 kg/m2 Doc William DO Work Phone: [facility] 08-05-2024 14:27-0400 Body weight 79.83 kg Doc William DO Work Phone: [facility] 08-05-2024 14:27-0400 Diastolic blood pressure 76 mm[Hg] Doc William DO Work Phone: [facility] 08-05-2024 14:27-0400 Systolic blood pressure 110 mm[Hg] Doc William DO Work Phone: [facility] 02-26-2024 15:41-0500 Body height 162.6 cm Myron Pocos DO Work Phone: [facility] 02-26-2024 15:41-0500 Body mass index (BMI) [Ratio] 30.21 kg/m2 Myron Pocos DO Work Phone: [facility] 02-26-2024 15:41-0500 Body weight 79.83 kg Myron Pocos DO Work Phone: [facility] 02-19-2024 15:26-0500 Body height 162.6 cm Rosalie Payne MD Work Phone: [facility] 02-19-2024 15:26-0500 Body mass index (BMI) [Ratio] 30.21 kg/m2 Rosalie Payne MD Work Phone: [facility] 02-19-2024 15:26-0500 Body weight 79.83 kg Rosalie Payne MD Work Phone: [facility] 02-19-2024 15:26-0500 Heart rate 88 /min Rosalie Payne MD Work Phone: [facility] 02-19-2024 15:26-0500 SaO2% (BldA) [Mass fraction] 98 % Rosalie Payne MD Work Phone: [facility] 12-09-2023 08:00-0400 Body height 162.6 cm Kelvin Oneal DO Work Phone: [facility] 12-09-2023 08:00-0400 Body mass index (BMI) [Ratio] 30.9 kg/m2 Kelvin Oneal DO Work Phone: [facility] 12-09-2023 08:00-0400 Body weight 81.65 kg Kelvin Oneal DO Work Phone: [facility] 09-02-2023 14:25-0400 Diastolic blood pressure 73 mm[Hg] MD Rosalie Payne Work Phone: [facility] 09-02-2023 14:25-0400 Heart rate 80 /min MD Rosalie Payne Work Phone: [facility] 09-02-2023 14:25-0400 Respiratory rate 18 /min MD Rosalie Payne Work Phone: [facility] 09-02-2023 14:25-0400 SaO2% (BldA) [Mass fraction] 100 % MD Rosalie Payne Work Phone: [facility] 09-02-2023 14:25-0400 Systolic blood pressure 122 mm[Hg] MD Rosalie Payne Work Phone: [facility] 09-02-2023 11:31-0400 Body height 165.1 cm MD Rosalie Payne Work Phone: [facility] 09-02-2023 11:31-0400 Body temperature 98.4 [degF] MD Rosalie Payne Work Phone: [facility] 09-02-2023 11:31-0400 Body weight 77.11 kg MD Rosalie Payne Work Phone: [facility] 07-25-2023 14:21-0400 Body height 165.1 cm [facility] 07-25-2023 14:21-0400 Body mass index (BMI) [Ratio] 28.3 kg/m2 [facility] 07-25-2023 14:21-0400 Body weight 77.11 kg [facility] 07-25-2023 14:21-0400 Diastolic blood pressure 72 mm[Hg] [facility] 07-25-2023 14:21-0400 Heart rate 81 /min [facility] 07-25-2023 14:21-0400 Systolic blood pressure 111 mm[Hg] [facility] 04-03-2023 14:55-0500 Diastolic blood pressure 87 mm[Hg] Myron Pocos [facility] 04-03-2023 14:55-0500 Heart rate 105 /min Myron Pocos [facility] 04-03-2023 14:55-0500 Mean blood pressure 103 mm[Hg] Myron Pocos [facility] 04-03-2023 14:55-0500 Systolic blood pressure 136 mm[Hg] Myron Pocos [facility] 04-03-2023 14:53-0500 Heart rate 98 /min Myron Pocos [facility] 04-03-2023 14:53-0500 SaO2% (BldA) [Mass fraction] 99 % Myron Pocos [facility] 04-03-2023 14:53-0500 Diastolic blood pressure 96 mm[Hg] Myron Pocos [facility] 04-03-2023 14:53-0500 Mean blood pressure 112 mm[Hg] Myron Pocos [facility] 04-03-2023 14:53-0500 Systolic blood pressure 145 mm[Hg] Myron Pocos [facility] 04-03-2023 14:52-0500 Respiratory rate 16 /min Myron Marroquin [facility] 04-01-2023 10:45-0500 Body height 165.1 cm Destinee Kristine Other [facility] Other 04-01-2023 10:45-0500 Body mass index (BMI) [Ratio] 28.29 kg/m2 Destinee Kristine Other [facility] Other 04-01-2023 10:45-0500 Body temperature 98.1 [degF] Destinee Kristine Other [facility] Other 04-01-2023 10:45-0500 Body weight 77.11 kg Destinee Kristine Other [facility] Other 04-01-2023 10:45-0500 Respiratory rate 18 /min Destinee Kristine Other [facility] Other 04-01-2023 10:45-0500 SaO2% (BldA) [Mass fraction] 99 % Destinee Kristine Other [facility] Other 08-21-2021 11:25-0400 Body height 165.1 cm Carlie Thomas Other [facility] Other 08-21-2021 11:25-0400 Body mass index (BMI) [Ratio] 27.12 kg/m2 Carlie Thomas Other [facility] Other 08-21-2021 11:25-0400 Body temperature 98.6 [degF] Carlie Thomas Other [facility] Other 08-21-2021 11:25-0400 Body weight 73.94 kg Carlie Thomas Other [facility] Other 08-21-2021 11:25-0400 Respiratory rate 18 /min Carlie Thomas Other [facility] Other 08-21-2021 11:25-0400 SaO2% (BldA) [Mass fraction] 97 % Carlie Thomas Other [facility] Other 05-24-2021 20:36-0500 Body temperature 97.7 [degF] Walkabout DO Work Phone: [facility] 05-24-2021 20:36-0500 Diastolic blood pressure 81 mm[Hg] Walkabout DO Work Phone: [facility] 05-24-2021 20:36-0500 Heart rate 101 /min Artis Tigerstripean DO Work Phone: [facility] 05-24-2021 20:36-0500 Respiratory rate 16 /min Walkabout DO Work Phone: [facility] 05-24-2021 20:36-0500 SaO2% (BldA) [Mass fraction] 97 % Walkabout DO Work Phone: [facility] 05-24-2021 20:36-0500 Systolic blood pressure 131 mm[Hg] Artis Tigerstripean DO Work Phone: [facility] 05-11-2021 13:10-0500 Body height 165.1 cm Adriana Evangelista Other [facility] Other 05-11-2021 13:10-0500 Body mass index (BMI) [Ratio] 27.12 kg/m2 Adriana Evangelista Other [facility] Other 05-11-2021 13:10-0500 Body temperature 97.8 [degF] Adriana Evangelista Other [facility] Other 05-11-2021 13:10-0500 Body weight 73.94 kg Adriana Evangelista Other [facility] Other 05-11-2021 13:10-0500 Diastolic blood pressure 90 mm[Hg] Adriana Evangelista Other [facility] Other 05-11-2021 13:10-0500 Respiratory rate 18 /min Adriana Evangelista Other [facility] Other 05-11-2021 13:10-0500 SaO2% (BldA) [Mass fraction] 99 % Adriana Evangelista Other [facility] Other 05-11-2021 13:10-0500 Systolic blood pressure 129 mm[Hg] Adriana Evangelista Other [facility] Other 05-01-2021 11:40-0500 Body height 165.1 cm Carlie Martha Other [facility] Other 05-01-2021 11:40-0500 Body mass index (BMI) [Ratio] 26.62 kg/m2 Carlie Thomas Other [facility] Other 05-01-2021 11:40-0500 Body temperature 98.6 [degF] Carlie Thomas Other [facility] Other 05-01-2021 11:40-0500 Body weight 72.58 kg Carlie Thomas Other [facility] Other 05-01-2021 11:40-0500 Respiratory rate 18 /min Carlie Thomas Other [facility] Other 05-01-2021 11:40-0500 SaO2% (BldA) [Mass fraction] 99 % Carlie Thomas Other [facility] Other 04-07-2021 12:00-0500 Body height 165.1 cm Sandeep Ramirez Other [facility] Other 04-07-2021 12:00-0500 Body mass index (BMI) [Ratio] 26.62 kg/m2 Sandeep Ramirez Other [facility] Other 04-07-2021 12:00-0500 Body temperature 97.6 [degF] Sandeep Ramirez Other [facility] Other 04-07-2021 12:00-0500 Body weight 72.58 kg Sandeep Ramirez Other [facility] Other 04-07-2021 12:00-0500 SaO2% (BldA) [Mass fraction] 98 % Sandeep Ramirez Other [facility] Other 12-13-2020 23:25-0400 Diastolic blood pressure 89 mm[Hg] David Dominguez MD Work Phone: [facility] Work Phone: 12-13-2020 23:25-0400 Systolic blood pressure 141 mm[Hg] David Dominguez MD Work Phone: [facility] Work Phone: 12-13-2020 23:23-0400 Body height 165.1 cm David Dominguez MD Work Phone: [facility] Work Phone: 12-13-2020 23:23-0400 Body mass index (BMI) [Ratio] 26.63 kg/m2 David Dominguez MD Work Phone: [facility] Work Phone: 12-13-2020 23:23-0400 Body temperature 98.29 [degF] David Dominguez MD Work Phone: [facility] Work Phone: 12-13-2020 23:23-0400 Body weight 72.58 kg David Dominguez MD Work Phone: [facility] Work Phone: 12-13-2020 23:23-0400 Heart rate 79 /min David Dominguez MD Work Phone: [facility] Work Phone: 12-13-2020 23:23-0400 Respiratory rate 14 /min David Dominguez MD Work Phone: [facility] Work Phone: 12-13-2020 23:23-0400 SaO2% (BldA) [Mass fraction] 99 % David Dominguez MD Work Phone: [facility] Work Phone: 09-19-2020 15:56-0400 Body temperature 98.6 [degF] [facility] Work Phone: 09-19-2020 15:56-0400 Diastolic blood pressure 90 mm[Hg] [facility] Work Phone: 09-19-2020 15:56-0400 Heart rate 103 /min [facility] Work Phone: 09-19-2020 15:56-0400 Respiratory rate 16 /min [facility] Work Phone: 09-19-2020 15:56-0400 SaO2% (BldA) [Mass fraction] 100 % [facility] Work Phone: 09-19-2020 15:56-0400 Systolic blood pressure 139 mm[Hg] [employer] Phone: Encounters Encounter Date Encounter Type Care Provider Facility Start: 10-28-2024 End: 10-28-2024 Patient encounter procedure Pretty ARELLANO Work Phone: [facility] Start: 10-28-2024 End: 10-28-2024 flow sheet Pretty ARELLANO Work Phone: [facility] Comment on above: Second trimester pre gnancy ([facility]); 23 weeks gestation of ([facility]); Diabetes mellitus screening; STD exposure; Well woman [...] on above: 19 weeks gestation o f ([facility]); Second trimester ([facility]) Start: 09-30-2024 End: 09-30-2024 ambulatory DOC WILLIAM Not Available Start: 09-28-2024 End: 09-28-2024 Clinisync Result Encounter Generic External Data Provider [facility] Unsolicited Start: 09-28-2024 End: 09-28-2024 Clinisync Result Encounter Generic External Data Provider [facility] Unsolicited Start: 09-02-2024 End: 09-02-2024 flow sheet Pretty ARELLANO Work Phone: [facility] Comment on above: Second trimester pre gnancy ([facility]); 15 weeks gestation of ([facility]); Screening, , for anatomic survey ([facility]) Start: 09-02-2024 End: 09-02-2024 ambulatory PRETTY MCKEON [...] Start: 12-24-2023 End: 12-24-2023 ambulatory Nereyda Vieira TUBE COVERER Work Phone: [facility] Comment on above: Acute pain of left k nee (Primary Dx); Status post arthroscopic reconstruction of anterior cruciate ligament of left knee using quadriceps tendon autograft Start: 12-24-2023 End: 12-24-2023 Bamboo flowsheet Nereyda Vieira TUBE COVERER Work Phone: [facility] Start: 12-24-2023 End: 12-24-2023 Bamboo flowsheet Nereyda Vieira TUBE COVERER Work Phone: [facility] Start: 12-17-2023 [...] Start: 12-03-2023 End: 12-03-2023 ambulatory Nereyda Vieira TUBE COVERER Work Phone: [facility] Comment on above: Acute pain of left k nee (Primary Dx); Status post arthroscopic reconstruction of anterior cruciate ligament of left knee using quadriceps tendon autograft Start: 12-03-2023 End: 12-03-2023 Bamboo flowsheet Nereyda Vieira TUBE COVERER Work Phone: [facility] Start: 12-03-2023 End: 12-03-2023 Bamboo flowsheet Nereydaannita Vieira TUBE COVERER Work Phone: [facility] Start: 11-19-2023 End: 11-19-2023 ambulatory Jennifer Martinonicolle TUBE COVERER [facility] Comment on above: Acute pain of left k nee (Primary Dx); Status post arthroscopic reconstruction of anterior cruciate ligament of left knee using quadriceps tendon autograft Start: 11-19-2023 End: 11-19-2023 Bamboo flowsheet Jennifer Halemilagrosall TUBE COVERER [facility] Start: 11-19-2023 End: 11-19-2023 Bamboo flowsheet Jennifer Martinoall TUBE COVERER [facility] Start: 11-12-2023 End: 11-12-2023 ambulatory Neerydaannita Vieira TUBE COVERER Work Phone: [facility] Comment on above: Acute pain of left k nee (Primary Dx); Status post arthroscopic reconstruction of anterior cruciate ligament of left knee using quadriceps tendon autograft Start: 11-12-2023 End: 11-12-2023 Bamboo flowsheet Nereyda Vieira TUBE COVERER Work Phone: [facility] Start: 11-12-2023 End: 11-12-2023 Bamboo flowsheet Nereyda Vieira TUBE COVERER Work Phone: [facility] Start: 09-02-2023 Non-patient / Non-visit MD Hector Payne Work Phone: [facility] Work Phone: Start: 09-02-2023 End: 09-02-2023 Admission to same day surgery center MD Rosalie Payne Work Phone: [facility] Work Phone: Start: 09-02-2023 End: 09-02-2023 ambulatory MD Rosalie Payne Work Phone: [facility] Work Phone: Start: 07-25-2023 End: 07-25-2023 ambulatory [facility] Work Phone: Start: 07-25-2023 End: 07-25-2023 Patient encounter procedure [facility] [facility] Work Phone: Start: 04-23-2023 End: 04-23-2023 ambulatory Jc Pocos Facility:[facility] Start: 04-22-2023 Chart abstracting Pepe Khan gs PT Work Phone: [facility] Start: 04-03-2023 End: 04-04-2023 ambulatory Jc Pocos Facility:[facility] Start: 04-03-2023 End: 04-03-2023 Patient encounter procedure Jc Pocos [facility] Start: 04-01-2023 End: 04-01-2023 ambulatory Destineegianfranco Paganb Other Nicholas Haddox Records Other Start: 04-01-2023 Office outpatient vi sit 15 minutes Destinee Kristine [facility] Start: 05-01-2022 End: 05-01-[address] DOC THOMAS . Facility:[facility] Start: 08-21-2021 End: 08-21-2021 ambulatory Carlie Thomas Other [facility] Other Start: 08-21-2021 Office outpatient vi sit 15 minutes Carlie Thomas [facility] Start: 07-26-2021 End: 07-26-[address] DOC THOMAS . Facility:[facility] Start: 05-24-2021 Emergency department patient visit ARTIS YODER [facility] Start: 05-24-2021 End: 05-24-2021 Emergency department patient visit Artis Yoder Work Phone: [facility] ED Comment on above: Contusion of left kn ee, initial encounter (Primary Dx) Start: 05-11-2021 End: 05-11-2021 ambulatory Adriana Evangelista Other [facility] Records Other Start: 05-11-2021 Office outpatient vi sit 15 minutes Adriana Evangelista [facility] Start: 05-01-2021 (URG) Urgent Care Visit Carlie quintanilla [facility] Start: 05-01-2021 End: 05-01-2021 ambulatory Carlie Thomas Other [facility] Records Other Start: 04-07-2021 End: 04-07-2021 ambulatory Sandeep Ramirez Other [facility] Other Start: 04-07-2021 Office outpatient vi sit 15 minutes Sadneep Ramirez [facility] Start: 12-14-2020 End: 12-14-2020 Emergency department patient visit DAVID DOMINGUEZ [facility] Start: 12-14-2020 End: 12-14-2020 Emergency department patient visit David Dominguez MD Work Phone: [facility] ED Comment on above: Tailbone injury, ini tial encounter (Primary Dx) Start: 09-19-2020 End: 09-19-2020 Emergency department patient visit [facility] ED Comment on above: Closed head injury, initial encounter (Primary Dx) Start: 07-15-2017 End: 07-18-2017 Ambulatory DAVID BECERRIL [facility] Start: 05-15-2017 End: 05-15-2017 Ambulatory DAVID SHEFFIELDGAS [facility] Start: 04-30-2017 End: 04-30-2017 [facility] Start: 04-29-2017 End: 04-30-2017 Ambulatory DAVID Hopkins [facility] Start: 03-13-2017 End: 03-14-2017 Ambulatory BLANCA PABLO Facility:[facility] Procedures Date Procedure Procedure Detail Performing Clinician Start: 10-28-2024 RECURRENT VAGINITIS (HTRX) Jessica patel QUOTATION CLERK Work Phone: Start: 10-28-2024 Urnls dip stick/tablet rgnt non-auto w/o micrscp Jessica Steen QUOTATION CLERK Work Phone: Start: 10-28-2024 IGP,APTIMA HPV,AGE GDLN [...] knee using quadriceps tendon autograft Nereyda Vieira TUBE COVERER Work Phone: Start: 05-24-2021 Radiologic examination knee 3 views Artsi Yoder DO Work Phone: Start: 12-14-2020 Radex [...] knee using quadriceps tendon autograft Nereyda Vieira TUBE COVERER Work Phone: History of reconstru ction of anterior cruciate ligament tear Status post arthroscopic reconstruction of anterior cruciate ligament of left knee using quadriceps tendon autograft Pepe Yañez Lilo PT Work Phone: History of reconstru ction of anterior cruciate ligament tear Status post arthroscopic reconstruction of anterior cruciate ligament of left knee using quadriceps tendon autograft Nereyda Vieira TUBE COVERER Work Phone: History of reconstru ction of anterior cruciate ligament tear Status post arthroscopic reconstruction of anterior cruciate ligament of left knee using quadriceps tendon autograft Nereyda Vieira TUBE COVERER Work Phone: History of reconstru ction of anterior cruciate ligament tear Status post arthroscopic reconstruction of anterior cruciate ligament of left knee using quadriceps tendon autograft Jennifer Geoffreyjanak TUBE COVERER Laparoscopic excisio n of cyst of left ovary Myron Marroquin Plan of Treatment Date Care Activity Detail Author Start: 11-25-2024 End: 11-25-2024 Patient encounter procedure 11/25/2024 1:50 PM EDT Routine [facility] [address] [place] [address] Doc Thomas DO [address] [facility] [address] [place], [place] [id number] [facility] Start: 11-16-2024 Influenza vaccination [facility] Start: 10-28-2024 End: 10-28-2024 Patient encounter [...] screening Expected: 10/28/2024 (Approximate), Expires: 10/28/2025 [facility] Work Phone: Comment on above: [...] screening Expected: 10/28/2024 (Approximate), Expires: 10/28/2025 [facility] Comment on above: Expected: 10/28/2024 (Approximate), Expires: 10/28/2025 Start: 09-30-2024 End: 09-30-2024 Patient encounter procedure 09/30/2024 3:40 PM EDT Routine [facility] [address] [place] [phone] Doc Thomas, DO [address] [place] [address] [facility] Start: 09-30-2024 End: 09-30-2024 Professional / ancillary services management 09/30/2024 2:30 PM EDT Ancillary Procedure [facility] [address] [facility] [place] [phone] [facility] Start: 09-02-2024 End: 09-02-2024 Patient encounter procedure [facility] Comment on above: Arrived Start: 09-02-2024 End: 11-02-2024 Alpha fetoprotein, maternal Alpha fetoprotein, maternal Lab Routine Second trimester ([facility]) Expected: 09/02/2024 (Approximate), Expires: 11/02/2024 [facility] Comment on above: Expected: 09/02/2024 (Approximate), Expires: 11/02/2024 Start: 09-02-2024 End: 12-03-2024 US for US OB 14+ weeks anatomy scan Imaging Routine Screening, , for anatomic survey ([facility]) Expected: 09/02/2024, Expires: 12/03/2024 [facility] Work Phone: Comment on above: Expected: 09/02/2024 , Expires: 12/03/2024 Start: 08-05-2024 End: 08-05-2024 Patient encounter procedure [facility] Comment on above: Arrived Start: 07-16-2024 End: 07-16-2025 ABO/Rh ABO/Rh Lab Routine Missed menses , unspecified gestational age Expected: 07/16/2024 (Approximate), Expires: 07/16/2025 [facility] Comment on above: Expected: 07/16/2024 (Approximate), Expires: 07/16/2025 Start: 07-16-2024 End: 07-16-2025 Blood type and Indirect antibody screen panel - Blood Type and screen Lab Routine Missed menses , unspecified gestational age Expected: 07/16/2024 (Approximate), Expires: 07/16/2025 [facility] Comment on above: Expected: 07/16/2024 (Approximate), Expires: 07/16/2025 Start: 07-16-2024 End: 07-16-2025 Drugs of abuse panel - Urine by Screen method Rapid drug screen, urine Lab Routine , unspecified gestational age Encounter for supervision of normal first in first trimester Expected: 07/16/2024 (Approximate), Expires: 07/16/2025 [facility] Comment on above: Expected: 07/16/2024 (Approximate), Expires: 07/16/2025 Start: 07-10-2024 End: 10-09-2024 US Pelvis transvaginal US OB transvaginal Imaging Routine Missed menses Expected: 07/10/2024, Expires: 10/09/2024 [facility] Work Phone: Comment on above: Expected: 07/10/2024 , Expires: 10/09/2024 Start: 02-21-2024 End: 02-21-2024 Patient encounter procedure 02/21/2024 8:00 AM EST Office Visit [facility] [address] [place] [phone] Myron Marroquin, [address] [place] [address] [facility] Start: 02-19-2024 End: 02-19-2024 Patient encounter procedure 02/19/2024 3:30 PM EST Office Visit [facility] [address] [place] [address] Rosalie Payne MD [address] [facility] [address] [place] [address] (Fax) 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CMS/HCC); Chronic fatigue; Cigarette [...] Treatment [facility] [address] [place] [address] Pepe Kirby, PT [address] [place], [place] [id number] [facility] JESENIA PT Start: 01-14-2024 End: 01-14-2024 ambulatory 01/14/2024 3:30 PM EDT Treatment [facility] [address] [place] [address] Nereyda Vieira, TUBE COVERER [address] [place] [address] [facility] Start: 01-10-2024 End: 01-10-2024 ambulatory 01/10/2024 2:30 PM EDT Treatment [facility] [address] [place] [phone] Pepe Kirby, PT [address] [place] [address] [facility] Start: 01-07-2024 End: 01-07-2024 ambulatory 01/07/2024 3:30 PM EDT Treatment [facility] [address] [place] [phone] Pepe Kirby, PT [address] [place] [address] [facility] Start: 01-03-2024 End: 01-03-2024 ambulatory 01/03/2024 2:30 PM EDT Treatment [facility] [address] [place] [phone] Pepe Kirby, PT [address] [place] [address] [facility] Start: 12-31-2023 End: 12-31-2023 ambulatory 12/31/2023 3:30 PM EDT Treatment [facility] [address] [place] [phone] Jennifer Dozier, TUBE COVERER [facility] Start: 12-27-2023 End: 12-27-2023 ambulatory [facility] Comment on above: Arrived Start: 12-24-2023 End: 12-24-2023 ambulatory 12/24/2023 3:00 PM EDT Treatment [facility] [address] [place] [phone] Nereyda Vieira, TUBE COVERER [address] [place] [address] [facility] Start: 12-17-2023 End: 12-17-2023 ambulatory 12/17/2023 3:00 PM EDT Treatment [facility] [address] [place] [phone] Pepe Kirby, PT [address] [place] [address] [facility] Start: 12-09-2023 End: 12-09-2023 Patient encounter procedure [facility] Comment on above: Arrived Start: 12-03-2023 End: 12-03-2023 ambulatory 12/03/2023 3:30 PM EDT Treatment [facility] [address] [place] [phone] Nereyda Vieira, TUBE COVERER [address] [place] [address] Arrived [facility] Comment on above: Arrived Start: 11-19-2023 End: 11-19-2023 ambulatory [facility] Comment on above: Acute pain of left k nee (Primary Dx); Status post arthroscopic reconstruction of anterior cruciate ligament of left knee using quadriceps tendon autograft Start: 11-17-2023 Influenza vaccination Influenza Vacc ine (#1) [facility] Start: 09-02-2023 [facility] Start: 05-07-2023 End: 05-07-2023 Patient encounter procedure 05/07/2023 11:10 AM EST Office Visit [facility] [address] [place] [address] Doc Thomas DO [address] [facility] [place] [address] [facility] Start: 05-03-2023 End: 05-03-2023 Patient encounter procedure 05/03/2023 11:00 AM EST Office Visit [facility] [address] [facility] [address] [place] [address] Vaniaobed Myron Washburn, DO [address] [place] [address] [facility] Start: 04-23-2023 End: 04-23-2023 Patient encounter procedure 04/23/2023 8:00 AM EST Procedure Visit [facility] Vaniaobed Myron Washburn, DO [address] [place] [address] [facility] Start: 04-22-2023 End: 04-22-2023 ambulatory 04/22/2023 2:30 PM EST Evaluation [facility] PT [address] [place] [phone] Pepe Kirby, PT [address] [place] [address] [facility] Start: 11-16-2022 Influenza vaccination Influenza Vacc ine (#1) [facility] Start: 08-30-2021 DTaP/Tdap/Td vaccine (5 - Td or Tdap) DTaP/Tdap/Td vaccine (5 - Td or Tdap) [facility] Start: 11-16-2020 Influenza vaccination Flu vaccine (# 1) [facility] Start: 06-09-2020 Screening for malign ant neoplasm of cervix [facility] Start: 06-09-2018 DTaP/Tdap/Td vaccine (1 - Tdap) DTaP/Tdap/Td vaccine (1 - Tdap) [facility] Work Phone: Start: 2015 Screening for Chlamy jasper trachomatis Chlamydia screen [facility] Start: 06-09-2014 HIV screening HIV screen [facility] Start: 11-23-2011 Varicella vaccine (2 of 2 - 2-dose childhood series) Varicella vaccine (2 of 2 - 2-dose childhood series) [facility] Start: 2011 COVID-19 Vaccine (1) COVID-19 Vaccin e (1) [facility] Phone: Start: 2011 Depression Screen Depression Screen [facility] Start: 06-09-2010 HPV vaccine (1 - 2-d ose series) HPV vaccine (1 - 2-dose series) [facility] Start: 06-09-2004 COVID-19 Vaccine (1) COVID-19 Vaccin e (1) [facility] Start: 06-09-2000 Varicella vaccine (1 of 2 - 2-dose childhood series) Varicella vaccine (1 of 2 - 2-dose childhood series) [facility] Phone: Start: 1999 Hepatitis C screening Hepatitis C wi ree [facility] Bacteria identified in Urine by Culture Urine culture Microbiology Routine Missed menses Ordered: 07/16/2024 [facility] Comment on above: Ordered: 07/16/2024 CBC W Auto Different ial panel - Blood CBC and differential Lab Routine Missed menses , unspecified gestational age Ordered: 07/16/2024 [facility] Comment on above: Ordered: 07/16/2024 CHLAMYDIA TRACHOMATI S (GENITO/STI) CHLAMYDIA TRACHOMATIS (GENITO/STI) Lab Routine STD exposure Ordered: 10/28/2024 [facility] Comment on above: Ordered: 10/28/2024 Cytology Cervical or vaginal smear or scraping study Pap Smear Pathology and Cytology Routine Well woman exam with routine gynecological exam Ordered: 10/28/2024 [facility] Comment on above: Ordered: 10/28/2024 Hemoglobin A1c/Hemoglobin.total in Blood Hemoglobin A1c Lab Routine Missed menses , unspecified gestational age Ordered: 07/16/2024 [facility] Comment on above: Ordered: 07/16/2024 Hepatitis B virus surface Ag [Presence] in Serum or Plasma by Immunoassay Hepatitis B surface antigen Lab Routine Missed menses , unspecified gestational age Ordered: 07/16/2024 [facility] Comment on above: Ordered: 07/16/2024 Hepatitis C virus Ab [Presence] in Serum or Plasma by Immunoassay Hepatitis C antibody Lab Routine Missed menses , unspecified gestational age Ordered: 07/16/2024 [facility] Comment on above: Ordered: 07/16/2024 HIV-1/HIV-2 antigen/antibody combination immunoassay HIV-1 and HIV-2 antibodies Lab Routine Missed menses , unspecified gestational age Ordered: 07/16/2024 [facility] Comment on above: Ordered: 07/16/2024 Neisseria gonorrhoea e DNA [Presence] in Unspecified specimen by QUEENIE with probe detection Neisseria gonorrhea DNA probe, direct Lab Routine STD exposure Ordered: 10/28/2024 [facility] Comment on above: Ordered: 10/28/2024 Patient Education Hiatal hernia Hemorrhoids Gastritis Know your [facility] Work Phone: Reagin Ab [Presence] in Serum by RPR RPR Lab Routine Missed menses , unspecified gestational age Ordered: 07/16/2024 [facility] Comment on above: Ordered: 07/16/2024 Rubella antibody, IgG Rubella an tibody, IgG Lab Routine Missed menses , unspecified gestational age Ordered: 07/16/2024 [facility] Comment on above: Ordered: 07/16/2024 SURESWAB(R) ADVANCED VAGINITIS PLUS, TMA SURESWAB(R) ADVANCED VAGINITIS PLUS, TMA Pathology and Cytology Routine STD exposure Ordered: 10/28/2024 [facility] Comment on above: Ordered: 10/28/2024 End: 08-05-2025 Thyrotropin [Units/volume] in Serum or Plasma TSH Lab 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 starting 08/05/2024 until 08/05/2025 [facility] Work Phone: Comment on above: [id number] for 6 Occurr ences starting 08/05/2024 until 08/05/2025 US Pelvis transvaginal US OB tra nsvaginal Imaging Routine Missed menses 07/16/2024 1:59 PM EDT [facility] Immunizations Immunization Date Immunization Notes Care Provider Fa cility 11-12-2016 hepatitis B vaccine, adult dosage Pepe Kirby PT Work Phone: [facility] 11-12-2016 meningococcal oligosaccharide (groups A, C, Y and W-135) diphtheria toxoid conjugate vaccine (MCV4O) Pepe Kirby PT Work Phone: [facility] 03-31-2012 hepatitis A vaccine, pediatric/adolescent dosage, 2 dose schedule Pepe Kirby PT Work Phone: [facility] 08-31-2011 hepatitis A vaccine, pediatric/adolescent dosage, 2 dose schedule Pepe Kirby PT Work Phone: [facility] 08-31-2011 tetanus toxoid, redu leyla diphtheria toxoid, and acellular pertussis vaccine, adsorbed Pepe Kirby PT Work Phone: [facility] 08-31-2011 varicella virus vaccine Pepe Kirby PT Work Phone: [facility] 09-11-2000 haemophilus influenz ae type b conjugate and Hepatitis B vaccine Pepe Kirby PT Work Phone: [facility] 09-11-2000 haemophilus influenz ae type b vaccine, HbOC conjugate Pepe Kirby PT Work Phone: [facility] 09-11-2000 hepatitis B vaccine, pediatric or pediatric/adolescent dosage Pepe Kirby PT Work Phone: [facility] 09-11-2000 measles, mumps and r ubella virus vaccine Pepe Kirby PT Work Phone: [facility] 09-11-2000 poliovirus vaccine, inactivated Pepe Kirby PT Work Phone: [facility] 03-26-2000 DTaP-Haemophilus influenzae type b conjugate vaccine Pepe Kirby PT Work Phone: [facility] 03-26-2000 pneumococcal conjuga te vaccine, 7 valent Pepe Kirby PT Work Phone: [facility] 1999 diphtheria, tetanus toxoids and acellular pertussis vaccine, Haemophilus influenzae type b conjugate, and poliovirus vaccine, inactivated ([id number]-[id number]-[id number]) Pepe Kirby PT Work Phone: [facility] 1999 diphtheria, tetanus toxoids and acellular pertussis vaccine, Haemophilus influenzae type b conjugate, and poliovirus vaccine, inactivated (SYmM-Cju-[id number]) Pepe Kirby PT Work Phone: [facility] 1999 hepatitis B vaccine, pediatric or pediatric/adolescent dosage Pepe Kirby PT Work Phone: [facility] 1999 hepatitis B vaccine, pediatric or pediatric/adolescent dosage Pepe Kirby PT Work Phone: [facility] Payers Date Payer Category Payer Self-pay 2023 Unknown [id number] 2022 Unknown [id number] 2022 Blue [employer] Blue Shield 1.2.8 [id number] 2022 Unknown [id number] 2020 Unknown [id number] 2006 Private Health Insurance [id number] 1999 Unknown [id number] 2.16.8 40.1.480809.3.579.2.173 1999 Unknown [id number] 2.16.8 40.1.665649.3.579.2.173 1999 Unknown [id number] 2.16.8 40.1.513043.3.579.2.173 1999 Unknown [id number] 2.16.84 0.1.944461.3.579.2.593 1999 Unknown [id number] 2.16.84 0.1.867178.3.579.2.593 1999 Unknown [id number] 2.16.8 40.1.131453.3.579.2.727 1999 Unknown [id number] 2.16.8 40.1.780964.3.579.2.727 1999 Unknown [id number] 2.16.8 40.1.157380.3.579.2.9 1999 Unknown [id number] 2.16.8 40.1.590627.3.579.2.1258 1999 Unknown [id number] 2.16.8 40.1.016838.3.579.2.1258 1999 Unknown [id number] 2.16.8 40.1.789999.3.579.2.1258 1999 Unknown [id number] 2.16.84 0.1.094011.3.579.2.1258 1999 Unknown [id number] 2.16.84 0.1.952186.3.579.2.1258 1999 Unknown [id number] 2.16.84 0.1.418586.3.579.2.1258 1999 Unknown [id number] 2.16.84 0.1.589986.3.579.2.1258 1999 Unknown [id number] 2.16.84 0.1.614243.3.579.2.1258 1999 Unknown [id number] 2.16.84 0.1.185443.3.579.2.1258 1999 Unknown [id number] 2.16.84 0.1.008901.3.579.2.1258 1999 Unknown [id number] 2.16.84 0.1.867264.3.579.2.1258 1999 Unknown [id number] 2.16.84 0.1.627811.3.579.2.1258 1999 Unknown [id number] 2.16.84 0.1.901211.3.579.2.1258 1999 Unknown [id number] 2.16.84 0.1.419057.3.579.2.1258 1999 Unknown [id number] 2.16.84 0.1.168824.3.579.2.1259 1959 Unknown [id number] 2.1 6.840.1.392547.19 1959 Unknown [id number] [facility] GTFAN [id number] 2.16.840.1.804857.19 Unknown [id number] 2.16.8 40.1.900572.3.579.2.531 Social History Date Type Detail Facility Start: 09-19-2020 End: 12-14-2020 Tobacco smoking status MIIS Never smoker [facility] Phone: Start: 09-19-2020 End: 05-10-2023 Tobacco use and exposure Never used [facility] Start: 1999 Sex Assigned At Not on file [facility] Phone: Exposure to SARS-CoV -2 (event) Not sure [facility] Start: 12-14-2020 End: 05-24-2021 Alcohol intake Current drinker of alcohol (finding) [facility] Phone: Start: 12-14-2020 Alcohol Comment Rare [facility] Phone: Start: 12-11-2022 End: 02-26-2024 Sex Assigned At [facility] Tobacco Current vaping o r e-cigarette use Smokeless Tobacco Use:. Vaping [facility] Tobacco smoking status No Smokin g Status Entered [facility] Start: 02-09-2023 End: 05-10-2023 Tobacco smoking status [facility] Occasional tobacco smoker [facility] Start: 04-15-2023 End: 09-30-2024 Alcohol intake Ex-drinker (finding) [facility] Start: 12-11-2022 End: 02-26-2024 History of [...] 09-02-2023 Tobacco smoking status NHIS Smoker (finding) [facility] History of tobacco use Cigarette Smoker [facility] Start: 05-30-2024 [facility] Goals Date Patient Goal Desired Activity /State Functional Status Date Assessment Result Facility 04-03-2023 Functional Status No [facility] Clinical Notes 04-07-2021 to 10-28-2024 Jessica Steen [...] Left 2019 OVARIAN CYST REMOVAL Left 05/20/2020 [facility] William VAGINAL DELIVERY REVIEW OF SYSTEMS [...] nursing note reviewed. Exam conducted with a bulldozer press operator present. Vitals: Estimated body mass index is 28.49 kg/m as calculated from the following: Height as of 24: 5' 4 . Weight as of this encounter: 166 lb. BP: 130/80 Patient's last menstrual period was 05/16/2024. ASSESSMENT & PLAN ICD-10-CM 1. Second trimester ([facility]) Z34.92 POCT urinalysis dipstick manually resulted 2. 23 weeks gestation of ([facility]) Z3A.23 3. Diabetes mellitus screening Z13.1 CBC [...] and prior work up for palpitations with [facility]. Plan will be to continue TSH every 4 weeks, EKG and cardiac Echo and follow up with [facility] and a referral will be made she declined Metoprolol at this time. Patient is to return to office in 4 week for routine OB appointment. Documented by Jessica Steen NP on behalf of: Jessica Steen NP documented in this encounter [facility] 09-30-2024 History of Present illness Narrative Reason [...] Left 2019 OVARIAN CYST REMOVAL Left 05/20/2020 [facility] William VAGINAL DELIVERY REVIEW OF SYSTEMS [...] nursing note reviewed. Exam conducted with a bulldozer press operator present. Vitals: Estimated body mass index is 28.29 kg/m as calculated from the following: Height as of 24: 5' 4 . Weight as of this encounter: 164 lb 12.8 oz. BP: 110/72 Patient's last menstrual period was 05/16/2024. ASSESSMENT & PLAN ICD-10-CM 1. 19 weeks gestation of ([facility]) Z3A.19 POCT urinalysis dipstick manually resulted 2. Second trimester ([facility]) Z34.92 POCT urinalysis dipstick manually resulted Patient [...] Doc Thomas DO documented in this encounter [facility] 09-02-2024 History of Present illness Narrative Reason [...] Left 2019 OVARIAN CYST REMOVAL Left 05/20/2020 [facility] William VAGINAL DELIVERY REVIEW OF SYSTEMS [...] nursing note reviewed. Exam conducted with a bulldozer press operator present. Vitals: Estimated body mass index is 30.21 kg/m as calculated from the following: Height as of 02/26/24: 5' 4 . Weight as of 08/05/24: 176 lb. BP: Patient's last menstrual period was 05/16/2024. ASSESSMENT & PLAN ICD-10-CM 1. Second trimester ([facility]) Z34.92 Alpha fetoprotein, maternal Alpha fetoprotein, maternal POCT urinalysis dipstick manually resulted 2. 15 weeks gestation of ([facility]) Z3A.15 3. Screening, , for anatomic survey ([facility]) Z36.89 US OB 14+ weeks anatomy scan [...] of: ADAN Gonzalez documented in this encounter [facility] 08-05-2024 History of Present illness Narrative Reason [...] Left 2019 OVARIAN CYST REMOVAL Left 05/20/2020 [facility] William VAGINAL DELIVERY REVIEW OF SYSTEMS [...] nursing note reviewed. Exam conducted with a bulldozer press operator present. Vitals: Estimated body mass index [...] or undercooked meat, and stay away from [facility]. Patient has been consulted regarding any further [...] Doc Thomas DO documented in this encounter [facility] 07-16-2024 History of Present illness Narrative Reason [...] or undercooked meat, and stay away from [facility]. Patient has also been advised to not [...] Aliya Aguilar LPN documented in this encounter [facility] 02-26-2024 History of Present illness Narrative Images [...] 7:42 AM EST documented in this encounter [facility] 02-19-2024 History of Present illness Narrative Images [...] Iron and TIBC documented in this encounter [facility] 12-27-2023 History of Present illness Narrative Physical [...] at this time. documented in this encounter [facility] 12-17-2023 History of Present illness Narrative Physical [...] Continue as tolerated. documented in this encounter [facility] 12-09-2023 History of Present illness Narrative Images from the original note were not included. @ENCDATE@ [facility] Matthew is a 23 y.o. female who [...] Left 2019 OVARIAN CYST REMOVAL Left 05/20/2020 [facility] William VAGINAL DELIVERY FAMILY HISTORY: Family [...] harvest. Joint spaces preserved. MRI left knee [facility] 10/18/2023 report and images reviewed. ACL graft [...] note was created using voice recognition through [employer] artificial intelligence. documented in this encounter [facility] 09-02-2023 Procedure note [facility] 09-02-2023 History and physical note Note Date/Time September 02, 2023 11:40am [facility] [address] [place] [address] Gastroenterology H&P Signed Patient: Aleta Castro MR#: [id number] : 2000 Acct:[id number] Age/Sex: 23 / F Adm Date: 4 Loc: Room: Type: [facility] Attending Dr: Marcelle Patel DO Copies to: [...] signed by Marcelle Patel DO> 09/02/[address] [facility] Work Phone: 1(974) 931-869306-17-2024 [facility] [id number] [facility]01-15-2024 Evaluation note* Encounter Date Diagnosis Assessment Notes [...] follow up with PCP if symptoms persist. Nicholas Haddox Records Other 06-06-2022 Evaluation note* Encounter Date Diagnosis [...] or concerns Aug, Bronchitis (ICD-10 - J40) [facility] Records Other 03-09-2022 Hospital Discharge instructions* Instructions* Artis [...] be sent through Care Everywhere. * Contusion (Burkinan) * Knee Pain or Injury (Burkinan) * RICE: General Info (Burkinan) [email or web address] Work Phone: 1(536) 319-481902-24-2022 Evaluation note* Encounter Date Diagnosis Assessment Notes Treatment Notes Treatment Clinical Notes Apr, Oral thrush (ICD-10 - B37.0) Use medication as directed. Change toothbrush. Follow up with PCP if symptoms do not improve with treatment [facility] Records Other 02-14-2022 Evaluation note* Encounter Date Diagnosis [...] Patient care instructions given in writting by [facility] At Home document. Nicholas Haddox Records Other 01-21-2022 Evaluation note* Encounter Date Diagnosis [...] Patient care instructions given in writting by [employer] [facility] document. Nicholas Haddox Records Other Evaluation + Plan note Future Appointments Appointment Date:04/23/2023 07:30:00 AM Scheduled Provider: Location:[facility] Diagnosis Closed head injury, initial encounter- Primary documented in this encounter [employer] Phone: evaluation note* Diagnosis Tailbone injury, initial encounter- Primary documented in this encounter [employer] Phone: evalrrfkli note* Diagnosis Contusion of left knee, initial encounter- Primary documented in this encounter [employer] Work Phone: evalyldjjn note* Diagnosis Onset Date Resolution Status Diarrhea acute GERD (gastroesophageal reflux disease) acute Lower abdominal pain acute Nausea acute [facility] Work Phone: Evaluation note* Diagnosis Onset Date Resolution Status Diarrhea acute Dysphagia acute GERD (gastroesophageal reflux disease) acute Lower abdominal pain acute Nausea acute [facility] Work Phone: Evaluation note* Diagnosis Acute [...] of (HHS-HCC) Screening, , for anatomic survey ([facility]) Encounter for anatomic survey [facility] Diagnosis 19 weeks gestation of (HHS-HCC) Second trimester (HHS-HCC) state, incidental [facility] Diagnosis Second trimester (HHS-HCC) state, incidental 23 weeks gestation of ([facility]) Diabetes mellitus screening Screening for diabetes mellitus STD exposure Well woman exam with routine gynecological exam Routine gynecological examination Heart palpitations Palpitations documented in this encounter [facility] Narrative - Reported* Type Description Date Medical History Hypothyroidism Medical History cardiovascular syncope Medical History chronic depression Surgical History left ovarian cyst Hospitalization History child [facility] Records Other Hospital course Narrative No data available for this section [facility] Attachments The following attachments cannot be sent through Care Everywhere. * Head Injury: Closed: General Info (Burkinan) documented in [facility] encounter[facility]Recur[facility] Phone: Hospital Discharge instructions* Attachments The following attachments cannot be sent through Care Everywhere. * Coccyx Injury (Burkinan) documented in [facility] Phone: Hospital Discharge instructions No data available for this section [facility] No data available for this section [facility] Summary Purpose Family History Relationship Condition [...] section and content) DATE CREATED AUTHOR 09/05/2017 [facility] DATE CREATED AUTHOR AUTHOR'S ORGANIZ ATROYER 09/05/2017 [facility] DATE CREATED AUTHOR AUTHOR'S ORGANIZ ATION 10/28/2019 [facility] DATE CREATED AUTHOR AUTHOR'S ORGANIZ ATION 05/26/2021 [facility] DATE CREATED AUTHOR AUTHOR'S ORGANIZ ATION 05/10/2022 [facility] DATE CREATED AUTHOR AUTHOR'S ORGANIZ ATION 07/24/2022 [facility] Specialist DATE CREATED AUTHOR AUTHOR'S ORGANIZ ATION 05/15/2023 [facility] DATE CREATED AUTHOR AUTHOR'S ORGANIZ ATION 09/11/2023 [facility] DATE CREATED AUTHOR AUTHOR'S ORGANIZ ATION 02/08/2024 [facility] DATE CREATED AUTHOR AUTHOR'S ORGANIZ ATION 10/30/2024 [facility] dical Specialists EPIC Reason for Visit (unrecogniz ed section and content) Reason Comments Head Injury headbutted repeated 10 times today around 1255 Headache Nausea Reason Comments Other Pt had a chair pulle d out from under her while at work. Pt fell onto hard ground. Pain in lower back. Reason Comments Knee Pain left knee, was kicke d by resident at [facility] at approx 1930 Specialty Diagnoses / Procedures Referred By Contac t Referred To Contact Physical Therapy Diagnoses Other specified postprocedural states Personal history of other diseases of the musculoskeletal system and connective tissue Procedures ID THERAPEUTIC PX 1/> AREAS EACH 15 MIN EXERCISES Myron Marroquin, DO [address] [facility] [address] [place], [place] Pepe Kirby, PT [address] [place] [address] Referral ID Status Reason Start Date Expiration Date V isits Requested Visits Authorized [id number] Authorized 09/10/2023 03/08/2024 99 99 Reason Comments [...] Care Teams (unrecognized sec tion and content) Analytical Manager Relationship Specialty Start Date End Date Rosalie Payne MD [address] [place] [address] PCP - General 05/24/21 Analytical Manager Relationship Specialty Start Date End Date Rosalie Payne MD [address] [place] [facility] [place] [address] (Fax) PCP - General Family Medicine 07/24/22 [...] Other Provider Active Start: September 02, 2023 Analytical Manager Relationship Specialty Start Date End Date Rosalie Payne MD [address] [place] [address] (Fax) PCP - General Family Medicine 07/24/22 Analytical Manager Relationship Specialty Start Date End Date Rosalie Payne MD [address] [place] [facility] [place] [address] (Fax) PCP - General Family Medicine 07/24/22 Analytical Manager Relationship Specialty Start Date End Date Rosalie Payne MD [address] [place] [address] (Fax) PCP - General Family Medicine 07/24/22 Analytical Manager Relationship Specialty Start Date End Date Rosalie Payne MD [address] [place] [address] (Fax) PCP - General Family Medicine 07/24/22 Analytical Manager Relationship Specialty Start Date End Date Rosalie Payne MD [address] [place] [address] (Fax) PCP - General Family Medicine 07/24/22 Analytical Manager Relationship Specialty Start Date End Date Rosalie Payne MD [address] [place] [facility] [place] [address] (Fax) PCP - General Family Medicine 07/24/22 Analytical Manager Relationship Specialty Start Date End Date Rosalie Payne MD [address] [place] [address] (Fax) PCP - General Family Medicine 07/24/22 Analytical Manager Relationship Specialty Start Date End Date Rosalie Payne MD [address] [place] [address] (Fax) PCP - General Family Medicine 07/24/22 Analytical Manager Relationship Specialty Start Date End Date Rosalie Payne MD [address] [place] [address] (Fax) PCP - General Family Medicine 07/24/22 Analytical Manager Relationship Specialty Start Date End Date Rosalie Payne MD [address] [place] [address] (Fax) PCP - General Family Medicine 07/24/22 Analytical Manager Relationship Specialty Start Date End Date Rosalie Payne MD [address] [place] [address] (Fax) PCP - General Family Medicine 07/24/22 Analytical Manager Relationship Specialty Start Date End Date Rosalie Payne MD [address] [place] [address] (Fax) PCP - General Family Medicine 07/24/22 Rosalie Payne MD [address] [place] [address] (Fax) PCP - [employer] 06/16/20 Analytical Manager Relationship Specialty Start Date End Date Rosalie Payne MD [address] [place] [address] (Fax) PCP - General Family Medicine 07/24/22 Rosalie Payne MD [address] [place] [address] (Fax) PCP - [employer] 06/16/20 Analytical Manager Relationship Specialty Start Date End Date Rosalie Payne MD [address] [place] [address] (Fax) PCP - General Family Medicine 07/24/22 Rosalie Payne MD [address] [place] [address] (Fax) PCP - [employer] 06/16/20 Analytical Manager Relationship Specialty Start Date End Date Rosalie Payne MD [address] [place] [address] (Fax) PCP - General Family Medicine 07/24/22 Rosalie Payne MD [address] [place] [address] (Fax) PCP - [employer] 06/16/20 Analytical Manager Relationship Specialty Start Date End Date Rosalie Payne MD [address] [place] [address] (Fax) PCP - General Family Medicine 07/24/22 Rosalie Payne MD [address] [place] [address] (Fax) PCP - [employer] 06/16/20 Analytical Manager Relationship Specialty Start Date End Date Rosalie Payne MD [address] [place] [address] (Fax) PCP - General Family Medicine 07/24/22 Rosalie Payne MD [address] [place] [address] (Fax) PCP - [employer] 06/16/20 Analytical Manager Relationship Specialty Start Date End Date Rosalie Payne MD [address] [place] [address] (Fax) PCP - General Family Medicine 07/24/22 Rosalie Payne MD [address] [place] [address] (Fax) PCP - [employer] 06/16/20 Analytical Manager Relationship Specialty Start Date End Date Rosalie Payne MD [address] [place] [address] (Fax) PCP - General Family Medicine 07/24/22 Rosalie Payne MD [address] [place] [address] (Fax) PCP - [employer] 06/16/20 Analytical Manager Relationship Specialty Start Date End Date Rosalie Payne MD [address] [place] [address] PCP - General Family Medicine 07/24/22 Rosalie Payne MD [address] [facility] [address] [place] [address] PCP - [employer] 06/16/20 Goals (unrecognized section and content) [...] BE BASED ON THE PRIMARY CLINICAL RECORDS. [employer] provides no warranty or guarantee of the accuracy or completeness of information in this document.
[2024-11-03 18:46] LABS: Thyroid Stimulating Hormone 0.658 uIU/mL (0.358-3.740)
== END 2024-11-03 15:04 | disposition home or self-care (01) ==
PROVIDERS: PCP Family Medicine; Visit Provider Obstetrics & Gynecology
DX: E06.3 Autoimmune thyroiditis (principal)
CPT/HCPCS: 36415; 84443

== ENCOUNTER 2024-11-12 13:50 | Outpatient (OUT) | payer BC, SELFPAY ==
--- NOTE | 2024-11-12 14:00 | ECG_ITS ---
[facility] Test Date: 2024-11-12 Pat Name: ALETA ELLINGTON Department: Room: - Gender: Female Time Study Statistician: : 2000 Requested By: LUNA PEDROZA Order Number: [id number] Reading MD: Bibi Singh Measurements Intervals Salol Rate: 79 P: 42 ND: 158 QRS: 81 QRSD: 90 T: 41 QT: 353 QTc: 405 Interpretive Statements SINUS RHYTHM Normal EKG No previous ECG available for comparison Electronically Signed On 11-13-2024 13:34:21 EDT by Bibi Singh
--- OUTSIDE RECORDS SUMMARY | 2024-11-12 14:02 | XMS_ITS | CCD ---
Author Organization [facility] CliniSyut Care Team Providers Care Object Oriented Developer Name Role Phone BECERRIL, DAVID P Unavailable Unavailable BECERRIL, DAVID P Unavailable Unavailable BECERRIL, DAVID P Unavailable Unavailable BECERRIL, DAVID P Unavailable Unavailable BECERRIL, DAVID P Unavailable Unavailable BLANCA PABLO AM Unavailable Unavailable BLANCA PABLO AM Unavailable Unavailable SELF, REFERRED Unavailable Unavailable ROSALIE PAYNE Unavailable Unavailable Unavailable Primary Care Provider UnavailRosalie Muhammad MD Primary Care Provider [phone] DAVID DOMINGUEZ Attending Unavailable ARTIS YODER Attending Unavailable Sandeep Ramirez Unavailable Carlie Thomas Unavailable Adriana Evangelista Unavailable WILLIAM ., DR PATRICIO Admitting Unavailable WILLIAM ., DR PATRICIO Attending Unavailable REQUEST, NONE LISTED Primary Care Unavaila ble WILLIAM ., DR PATRICIO Consulting Unavailable WILLIAM ., DR PATRICIO Admitting Unavailable WLILIAM ., DR PATRICIO Attending Unavailable REQUEST, DR NONE LISTED Primary Care Unavaila ble WILLIAM ., DR PATRICIO Consulting Unavailable Kristine, Destinee Unavailable ROSALIE PAYNE Primary Care Physician Unavail able Rosalie Payne MD Primary Care Provider [phone] Pocobed, Myron Washburn Admitting Unavailable PocosMyron Referring Unavailable Pocos, Myron Washburn Attending Unavailable Pocos, Myron Washburn Referring Unavailable Pocos, Myron Washburn Attending Unavailable Myron Rojas Admitting Unavailable MD Rosalie Payne Primary Care Provider [phone] DO Marcelle Patel Attending Provider [phone] Marcelle Patel Attending Unavailable Marcelle Patel Admitting Unavailable Rosalie Payne Primary Care Unavailable Rosalie Payne MD Primary Care Provider [phone] Rosalie Payne MD Primary Care Provider Rosalie Payne MD Unavailable [phone] DOC THOMAS Attending Unavailable PRETTY MCKEON Attending Unavailable WILLIAMDOC YOUNGBLOOD Attending Unavailable PRETTY MCKEON Attending Unavailable NEREYDA VIEIRA Attending Unavailable POCMYRNO CLAY Referring Unavailable JENNIFER DOZIER Attending Unavailable [...] Latex (1 source) Latex Substance Allergy 1 [facility] Macrolides (antibiotic) (1 source) Azithromycin Drug Allergy 1 [facility] (20 sources) Azithromycin; Translations: [azithromycin] Drug Allergy 1 [facility] (10 sources) Latex; Translations: [Latex] Propensity to adverse reactions to drug 1 [facility] (1 source) Azithromycin Drug Allergy 0 [facility] Repository (1 source) natural latex rubber Drug allergy (disorder) [facility] Repository (2 sources) Banana Extract; Translations: [Banana] Drug Allergy Vomiting (disorder) [facility] (20 sources) Midodrine; Translations: [midodrine] Drug Allergy 3 Numbness [facility] (20 sources) Latex Allergy to substance 1 [facility] (1 source) Azithromycin Drug Allergy 4 [facility] Repository (1 source) Latex Drug allergy (disorder) 4 [facility] Repository Medications Current Medications Medication Drug Class(es) Dates Sig (Normalized) Sig (Original) [id number] 200 actuat albuterol 0.09 mg/actuat metered dose [...] Active ondansetron 4 mg disintegrating oral tablet (18 sources) Serotonin-3 Receptor Antagonist Start: 10-05-2024 End: 11-04-2024 take 1 tablet by mouth every six hours for nausea ondansetron ODT (Zofran-ODT) 4 MG disintegrating tablet Indications: Nausea and vomiting during ([facility]) Take 1 tablet (4 mg) by mouth every 6 (six) hours if needed for nausea or vomiting 30 tablet 3 10/05/2024 11/04/2024 Active Start: 08-26-2024 End: 09-30-2024 take 1 tablet by mouth every six hours for nausea ondansetron ODT (Zofran-ODT) 4 MG disintegrating tablet Indications: Nausea and vomiting during ([facility]) Take 1 tablet (4 mg) by mouth [...] mg by mouth daily 0 Active Citalopram [place] bromide Active clotrimazole 10 mg oral lozenge (3 sources) Azole Antifungal Start: 05-11-2021 Clotrimazole 10 MG 1 wenceslao Mouth/Throat Three times a day for 7 day(s) Apr, Not-Taking/PRN medroxyPROGESTERone (4 sources) Progestin Depo-Provera Not-Taking/PRN Depo-Provera Act nicolle metoclopramide 10 mg oral tablet (12 sources) Dopamine-2 Receptor Antagonist Start: 07-16-2024 End: 09-30-2024 metoclopramide (Reglan) 10 MG tablet Indications: Nausea/vomiting in ([facility]) Take 1 tablet (10 mg) by [...] mg Start: 05-24-2021 take 1 tablet by aruea th twice daily at mealtime naproxen (NAPROSYN) [...] bone disease and musculoskeletal deformities (20 sources) [place] Schlatter disease; 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 [...] Test Name Value Interpretation Reference Range Facility ALL CBC WITH AUTO DIFFon BASOPHILS ABSOLUTE AUTO 0 [facility] Basophils/100 WBC (Bld) 0.2 % 0.2 - 2.0 % [facility] Eosinophils/100 WBC (Bld) 0.5 % Low 0.9 - 7.0 % [facility] Erythrocyte distribution width (RBC) [Ratio] 12.7 % 11.0 - 15.0 % [facility] Hematocrit (Bld) [Volume fraction] 31.2 % Low 36.0 - 48.0 % [facility] Hemoglobin (Bld) [Mass/Vol] 10.8 g/dL Low 12.0 - 16.0 g/dL [facility] IMMATURE GRANULOCYTES ABS AUTO 0.01 [facility] Immature granulocytes/100 WBC (Bld) 0.2 % 0.0 - 0.5 % [facility] Interpretation and review of laboratory results Abnormal [facility] LYMPHOCYTES ABSOLUTE AUTO 1 Low [facility] Lymphocytes/100 WBC (Bld) 15 % Low 20.5 - 60.0 % [facility] MCH (RBC) [Entitic mass] 32.3 pg 26.7 - 34.0 pg [facility] MCHC (RBC) [Mass/Vol] 34.6 g/dL 29.9 - 35.2 g/dL [facility] MCV (RBC) [Entitic vol] 93.4 fL 81.0 - 99.0 fL [facility] MONOCYTES ABSOLUTE AUTO 0.5 [facility] Monocytes/100 WBC (Bld) 7.7 % 1.7 - 12.0 % [facility] NEUTROPHILS ABSOLUTE AUTO 5 [facility] Neutrophils/100 WBC (Bld) 76.4 % High 43.0 - 75.0 % [facility] Platelet mean volume (Bld) [Entitic vol] 9.7 fL 9.5 - 13.5 fL [facility] TBH EO # 0 [facility] TB PLT 187 [facility] RBC 3.34 Low [facility] TBH WBC 6.6 [facility] IGP,APTIMA HPV,AGE GDLNon AGE GDLN ACOG TESTING Note . [facility] Comment on above: TESTS RESULT FLAG UN ITS REF RANGE LAB Clinician Provided Cytology Information Source.............Endocervix No. of containers..01 ThinPrep Vial Age Algo ACOG Yaa... FLAG LEGEND: L-Low Normal,H-High Normal,LL-Alert Low,HH-Alert High <-Panic Low,>-Panic High,A-Abnormal,AA-Critical Abnormal Performed at: 01 [facility] [address] [place] [address] Ludy Hector MD, IGP, RFX APTIMA HPV ASCU Note . [facility] Comment on above: TESTS RESULT FLAG UN ITS REF RANGE LAB DIAGNOSIS: 02 NEGATIVE FOR INTRAEPITHELIAL LESION OR MALIGNANCY. THIS SPECIMEN WAS RESCREENED PART OF OUR BELT FIXER PROGRAM. Specimen adequacy: 02 Satisfactory for evaluation. No endocervical component is identified. Performed by: Saravanan Mello, Hot End Operator ([facility]) QC reviewed by: 02 Polina Simons, Hot End Operator . 02 Note: Note 02 The Pap [...] <-Panic Low,>-Panic High,A-Abnormal,AA-Critical Abnormal Performed at: [address] [address] Ludy Hector MD, Performed at: =[address] [id number] Concrete Engineering Technician: Ludy Hector MD, Phone: [phone] Performed at: [address] [id number] Concrete Engineering Technician: Ludy Hector MD, Phone: [phone] [facility] RECURRENT VAGINITIS (HTRX)on 10-30-2024 ATOPOBIUM VAGINAE 0 [facility] ATOPOBIUM VAGINAE Not detected [facility] BVAB 2,3 (BACTERIAL VAGINOSIS ASSOCIATED BACTERIA 2, 3); MOBILUNCUS SPP 0 [facility] BVAB 2,3 (BACTERIAL VAGINOSIS ASSOCIATED BACTERIA 2, 3); MOBILUNCUS SPP Not detected [facility] RICKEY ALBICANS, PARAPSILOSIS, TROPICALIS 0 [facility] RICKEY ALBICANS, PARAPSILOSIS, TROPICALIS Not detected [facility] RICKEY GLABRATA 0 [facility] RICKEY GLABRATA Not detected [facility] RICKEY KRUSEI 0 [facility] RICKEY KRUSEI Not detected [facility] CHLAMYDIA TRACHOMATIS 0 [facility] CHLAMYDIA TRACHOMATIS Not detected [facility] GARDNERELLA VAGINALIS 0 [facility] GARDNERELLA VAGINALIS Not detected [facility] MEGASPHAERA (TYPES 1, 2) 0 [facility] MEGASPHAERA (TYPES 1, 2) Not detected [facility] MYCOPLASMA GENITALIUM 0 [facility] MYCOPLASMA GENITALIUM Not detected [facility] NEISSERIA GONORRHOEAE 0 [facility] NEISSERIA GONORRHOEAE Not detected [facility] TRICHOMONAS VAGINALIS 0 [facility] TRICHOMONAS VAGINALIS Not detected [facility] Urinalysis macro (dipstick) panel (U)on 10-28-2024 Bilirubin, UA Positive Negative - 4(70) +++ mg/dL [facility] Blood, UA Negative Negative - 50 Randall/mcL [facility] Clarity, UA Clear [facility] Color, UA Yellow [facility] Glucose, UA Positive Negative - 1999(110) ++++ mg/dL [facility] Interpretation and review of laboratory results Abnormal [facility] Ketones, UA Positive Negative - 160(16) ++++ mg/dL [facility] Leukocytes, UA Negative Negative - 500+++ Rick/mcL [facility] Nitrite, UA Negative Negative - Positive [facility] pH, UA 6 5 - 9 [facility] Protein, UA Positive Negative - 1999(20) ++++ mg/dL [facility] Spec Grav, UA 1.03 1 - 1.03 [facility] Urobilinogen, UA 0.2 0.2 - 12 mg/dL [facility] US OB CERVICAL LENGTHon 09-16 [place] [address] Ultrasound Report Signed Patient: ALETA CASTRO MR#: [id number] : 2000 Acct:[id number] Age/Sex: 24 / F ADM Date: 10/06/24 Loc: US Attending Dr: Doc Thomas D.O. Ordering Physician: Doc Thomas D.O. Date of Service: 10/06/24 Procedure(s): US OB cervical length Accession Number(s): [id number] cc: Doc Thomas D.O.; ROSALIE PAYNE [place] [id number] Patient Name: ALETA CASTRO MRN: [id number] date: 2000 Sex: F Assigned Patient Location: US Current Patient Location: US Accession/Order Number: [id number] Exam Date: 10/06/2024 14:25 Report Date: 10/06/2024 [...] Jr., D.O. 10/06/2024 2:26 PM Dictation Location: [place] [address] Electronically authenticated by: [id number] Y Date: 10/06/2024 14:26 Dictated By: Jermaine Nguyễn M.D. Signed By: 10/06/24 1428 DD/ 1426 TD/TT: Mat Making Machine Tender: [facility] Radiology, Radiologi MD cecelia - 10/06/2024 [place] [address] Ultrasound Report Signed Patient: ALETA CASTRO MR#: [id number] : 2000 Acct:[id number] Age/Sex: 24 / F ADM Date: 10/06/24 Loc: US Attending Dr: Doc Thomas D.O. Ordering Physician: Doc Thomas D.O. Date of Service: 10/06/24 Procedure(s): US OB cervical length Accession Number(s): [id number] cc: Doc Thomas D.O.; ROSALIE PAYNE [place] [address] Patient Name: ALETA CASTRO MRN: [id number] date: 2000 Sex: F Assigned Patient Location: US Current Patient Location: US Accession/Order Number: [id number] Exam Date: 10/06/2024 14:25 Report Date: 10/06/2024 [...] Jr., D.O. 10/06/2024 2:26 PM Dictation Location: [place] [address] Electronically authenticated by: [id number] Y Date: 10/06/2024 14:26 Dictated By: Jermaine Nguyễn M.D. Signed By: 10/06/24 1428 DD/ 1426 TD/TT: Mat Making Machine Tender: [facility] [employer] Radiology Study observation (narrative) [facility] US OB CERVICAL LENGTHOrdered By: Radiologist Radiology on 10-06-2024 [facility] [employer] Work Phone: US OB 14+ WEEKS ANATOMY [...] UA Negative Negative - 4(70) +++ mg/dL [facility] Blood, UA Negative Negative - 50 Randall/mcL [facility] Clarity, UA Clear [facility] Color, UA Yellow [facility] Glucose, UA Negative Negative - 1999(110) ++++ mg/dL [facility] Interpretation and review of laboratory results Normal [facility] Ketones, UA Negative Negative - 160(16) ++++ mg/dL [facility] Leukocytes, UA Negative Negative - 500+++ Rick/mcL [facility] Nitrite, UA Negative Negative - Positive [facility] pH, UA 6 5 - 9 [facility] Protein, UA Negative Negative - 1999(20) ++++ mg/dL [facility] Spec Grav, UA 1.005 1 - 1.03 [facility] Urobilinogen, UA 1.0 0.2 - 12 mg/dL [facility] ALL THYROID STIM HORMONEon 0 09-28-2024 TSH Qn 0.836 m[IU]/L [facility] (dipstick) panel (U)on 09-02-2024 Bilirubin, UA Negative Negative - 4(70) +++ mg/dL [facility] Blood, UA Negative Negative - 50 Randall/mcL [facility] Clarity, UA Clear [facility] Color, UA Yellow [facility] Glucose, UA Negative Negative - 1999(110) ++++ mg/dL [facility] Interpretation and review of laboratory results Normal [facility] Ketones, UA Negative Negative - 160(16) ++++ mg/dL [facility] Leukocytes, UA Negative Negative - 500+++ Rick/mcL [facility] Nitrite, UA Negative Negative - Positive [facility] pH, UA 6 5 - 9 [facility] Protein, UA Negative Negative - 1999(20) ++++ mg/dL [facility] Spec Grav, UA 1.025 1 - 1.03 [facility] Urobilinogen, UA 0.2 0.2 - 12 mg/dL [facility] ALL THYROID STIM HORMONEon 0 08-31-2024 TSH Qn 1.413 m[IU]/L [facility] macro (dipstick) panel (U)on 08-05-2024 Bilirubin, UA Negative Negative - 4(70) +++ mg/dL [facility] Blood, UA Negative Negative - 50 Randall/mcL [facility] Clarity, UA Clear [facility] Color, UA Yellow [facility] Glucose, UA Negative Negative - 1999(110) ++++ mg/dL [facility] Interpretation and review of laboratory results Abnormal [facility] Ketones, UA Positive Negative - 160(16) ++++ mg/dL [facility] Comment on above: 40 Leukocytes, UA Trace Negative - 500+++ Rick/mcL [facility] Nitrite, UA Negative Negative - Positive [facility] pH, UA 6.5 5 - 9 [facility] Protein, UA Negative Negative - 1999(20) ++++ mg/dL [facility] Spec Grav, UA 1.025 1 - 1.03 [facility] Urobilinogen, UA 1.0 0.2 - 12 mg/dL [facility] BOX TESTon 07-18-20[address] OUT [facility] BOX1 [facility] BOX2 07/18/24 [facility] TB DRUG SCREEN RAPID (URINE )on 07-18-2024 AMPHETAMINE SCREEN URINE Negative NEGATIVE [facility] BARBITURATES SCREEN URINE Negative NEGATIVE [facility] BENZODIAZEPINES SCREEN URINE Negative NEGATIVE [facility] BUPRENORPHINE SCREEN URINE Negative NEGATIVE [facility] Comment on above: DRUG CLASS TEST SYST [...] 300 ng/mL CANNABINOID SCREEN URINE Negative NEGATIVE [facility] COCAINE SCREEN URINE Negative NEGATIVE [facility] METHADONE SCREEN URINE Negative NEGATIVE [facility] METHAMPHETAMINES SCREEN URINE Negative NEGATIVE [facility] OPIATE SCREEN URINE Negative NEGATIVE [facility] OXYCODONE SCREEN URINE Negative NEGATIVE [facility] PHENCYCLIDINE SCREEN URINE Negative NEGATIVE [facility] TRICYCLIC ANTIDEPRESSANT URINE Negative NEGATIVE [facility] HCG ( test) Ql (U)o n 07-16-2024 Interpretation and review of laboratory results Abnormal [facility] Preg Test, Ur Positive Negative [facility] US OB TRANSVAGINALon 025 US OB TRANSVAGINAL [...] II, MD, PHD at 19-Jul-2024 08:55:15 PM [facility] Normal Not Available Comment on above: Order Comment: US OB TRANSVAGINAL No LMP recorded. Urinalysis macro (dipstick) panel (U)on 07-16-2024 Bilirubin, UA Negative Negative - 4(70) +++ mg/dL [facility] Blood, UA Negative Negative - 50 Randall/mcL [facility] Clarity, UA Clear [facility] Color, UA Yellow [facility] Glucose, UA Negative Negative - 2000(110) ++++ mg/dL [facility] Interpretation and review of laboratory results Normal [facility] Ketones, UA Negative Negative - 160(16) ++++ mg/dL [facility] Leukocytes, UA Negative Negative - 500+++ Rick/mcL [facility] Nitrite, UA Negative Negative - Positive [facility] pH, UA 6.5 5 - 9 [facility] Protein, UA Negative Negative - 2000(20) ++++ mg/dL [facility] Spec Grav, UA 1.02 1 - 1.03 [facility] Urobilinogen, UA 1.0 0.2 - 12 mg/dL [facility] CBC W Auto Differential pane l (Bld)on 02-21-2024 Band form neutrophils (Bld) [#/Vol] CANCELED [facility] Comment on above: Result canceled by t he ancillary. Band form neutrophils/100 WBC (Bld) CANCELED % [facility] Comment on above: Result canceled by t he ancillary. Basophils (Bld) [#/Vol] 19 10*3/uL [facility] Basophils/100 WBC (Bld) 0.4 % [facility] Blasts (Bld) [#/Vol] CANCELED 0 cells/uL [facility] Comment on above: Result canceled by t he ancillary. Blasts/100 WBC (Bld) CANCELED % [facility] Comment on above: Result canceled by t he ancillary. Eosinophils (Bld) [#/Vol] 91 10*3/uL [facility] Eosinophils/100 WBC (Bld) 1.9 % [facility] Erythrocyte distribution width (RBC) [Ratio] 12.5 % 11.0 - 15.0 % [facility] Hematocrit (Bld) [Volume fraction] 38.9 % 35.0 - 45.0 % [facility] Hemoglobin (Bld) [Mass/Vol] 12.8 g/dL 11.7 - 15.5 g/dL [facility] Lymphocytes (Bld) [#/Vol] 1282 10*3/uL [facility] Lymphocytes/100 WBC (Bld) 26.7 % [facility] MCH (RBC) [Entitic mass] 30.6 pg 27.0 - 33.0 pg [facility] MCHC (RBC) [Mass/Vol] 32.9 g/dL 32.0 - 36.0 g/dL [facility] Comment on above: For adults, a slight [...] he ancillary. Neutrophils (Bld) [#/Vol] 2986 10*3/uL [facility] Neutrophils/100 WBC (Bld) 62.2 % [facility] Nucleated RBC (Bld) [#/Vol] CANCELED 0 [...] WBC (Bld) CANCELED 0 - 10 % [facility] Comment on above: Result canceled by lima [facility] ancillary. WBC (Bld) [#/Vol] 4.8 10*3/uL [facility] Iron and Iron binding capaci ty panelon 02-21-2024 Iron [Mass/Vol] 101 ug/dL [facility] Iron binding capacity [Mass/Vol] 340 [facility] Iron saturation [Mass fraction] 30 [facility] Laboratory - Chemistry and C hemistry - challengeon 02-21-2024 Albumin [Mass/Vol] 4.8 g/dL 3.6 - 5.1 g/dL [facility] Albumin/Globulin [Mass ratio] 1.8 {ratio} [facility] ALP [Catalytic activity/Vol] 65 U/L 31 - 125 U/L [facility] ALT [Catalytic activity/Vol] 16 U/L 6 - 29 U/L [facility] AST [Catalytic activity/Vol] 14 U/L 10 - 30 U/L [facility] Bilirubin [Mass/Vol] 0.6 mg/dL 0.2 - 1 .2 mg/dL [facility] Calcium [Mass/Vol] 9.3 mg/dL 8.6 - 10. 2 mg/dL [facility] Chloride [Moles/Vol] 107 mmol/L 98 - 11 0 mmol/L [facility] CO2 [Moles/Vol] 24 mmol/L 20 - 32 mmol/L [facility] Cortisol [Mass/Vol] 14.3 ug/dL mcg/dL [facility] Comment on above: Reference Range: For 8 a.m.(7-9 a.m.) Specimen: 4.0-22.0 Reference Range: For 4 p.m.(3-5 p.m.) Specimen: 3.0-17.0 * Please interpret above results accordingly * Creatinine [Mass/Vol] 0.71 mg/dL 0.50 - 0.96 mg/dL [facility] GFR/1.73 sq M.predicted among non-blacks MDRD (S/P/Bld) [Vol rate/Area] 122 mL/min/{1.73_m2} > OR = 60 mL/min/1.73m 2 [facility] Globulin (S) [Mass/Vol] 2.6 g/dL [facility] Glucose [Mass/Vol] 95 mg/dL 65 - 99 mg/dL [facility] Comment on above: Fasting reference interval Potassium [Moles/Vol] 4.2 mmol/L 3.5 - 5.3 mmol/L [facility] Protein [Mass/Vol] 7.4 g/dL 6.1 - 8.1 g/dL [facility] Sodium [Moles/Vol] 139 mmol/L 135 - 146 mmol/L [facility] Urea nitrogen [Mass/Vol] 16 mg/dL 7 - 25 mg/dL [facility] Urea nitrogen/Creatinine [Mass ratio] SEE NOTE: [facility] Comment on above: Not Reported: BUN an d Creatinine are within reference range. Laboratory - Serology - non- microon 02-21-2024 Thyroglobulin Ab Qn 153 [IU]/mL High < or = 1 IU/mL [facility] TPO Ab Qn 27 [IU]/mL High NINF [facility] No Panel Informationon 02-20 Interpretation and review of laboratory results Abnormal [facility] Performing Organizat ion Information Site ID: [id number] Name: [facility] Address: [address] [place] [phone] Director: Urvashi Gtz [facility] Performing Organizat ion Information Site ID: QPT Name: [employer] [facility] Address: [address] [place] [address], [address] [place] [address] Director: Yonis Beck MD [facility] T3, FREE 02-05-2024 Free T3 [Mass/Vol] 3.6 pg/mL Normal 2.3-4.2 [facility] Comment on above: Performed By: #### 8 93, [id number], 079 #### [facility] [address], [address] [place] [address] Engineering Documentation Specialist: Yonis Beck MD T4, FREEon 02-05-2024 Free T4 [Mass/Vol] 1.1 ng/dL Normal 0.8-1.8 [facility] Comment on above: Order Comment: FASTI NG:NO FASTING: NO Performed By: #### 8 31, [id number], 890 #### [facility] [address], [address] [place], [place] [id number] Engineering Documentation Specialist: Yonis Beck MD TSHon 02-05-2024 TSH Qn 1.98 m[IU]/L Normal [facility] Comment on above: Result Comment: Refe rence Range > or = 20 Years 0.40-4.50 Ranges First trimester 0.26-2.66 Second trimester 0.55-2.73 Third trimester 0.43-2.91 Performed By: #### 8 99, [id number], 866 #### [facility] [address] [facility], [address] [place] [address] Engineering Documentation Specialist: Yonis Beck MD HCG ( test) Ciro quintanilla Ql (U)Ordered By: Marcelle Patel on 09-02-2023 HCG ( test) Ql (U) Negative [facility] HCG,Urineon 09-02-2023 Beta HCG ( test) Ql (U) Negative Normal [facility] Comment on above: Result Comment: PERF ORMED BY: [facility] [address] [place] [address] PATHOLOGIST ICE RINK ATTENDANT RAYMOND SUERO M.D. Performed By: #### U HCG #### [facility] [address] Chaitanya 09-02-2023 L Specimen: [id number] Received: 09/03/23 Status: FRANKLYN Gonzales Num: [id number] Spec Type: Surgical Subm Dr: Marcelle Patel [...] Location Account Attending Physician Aleta Castro / [id number] Marcelle Patel DO SPEC NUM: [id number] RECD: 09/03/23 STATUS: FRANKLYN GONZALES NUM: [id number] MIRIAM: 09/02/23- SUBM DR: Marcelle Patel DO ENTERED: 09/03/[address]: SPEC TYPE: Surgical DEPT: S ORDERED: [...] mild squamous acanthosis and occasionally associated Specimen: [id number] Received: 09/03/23 Status: FRANKLYN Bradshawcharley Num: [id number] Spec Type: Surgical Subm Dr: Marcelle Patel DO Tissues: A Small Intestine - Biopsy/Polyp (SMALL BOWEL BX) B GASTRIC FOR HP (GASTRIC HP) C Esophagus Biopsy (DISTAL ESOPHAGUS) D Esophagus Biopsy (PROXIMAL ESOPHAGUS) E Colon Biopsy (RANDOM RT COLON) F Colon Biopsy (RANDOM LT COLON) Procedures: HE/12, Gross/Micro L4/6, H PYLORI, IHC First AB Patient: Aleta Castro [id number] (Continued) Specimen: [id number] Received: 09/03/23 (Continued) Pathological Diagnosis (Continued) Signed (signature on file) Heather Villegas MD 09/05/23 1417 Specimen: [id number] Received: 09/03/23 Status: FRANKLYN Gonzales Num: [id number] Spec Type: Surgical Subm Dr: Marcelle Patel DO Tissues: A Small Intestine - Biopsy/Polyp (SMALL BOWEL BX) B GASTRIC FOR HP (GASTRIC HP) C Esophagus Biopsy (DISTAL ESOPHAGUS) D Esophagus Biopsy (PROXIMAL ESOPHAGUS) E Colon Biopsy (RANDOM RT COLON) F Colon Biopsy (RANDOM LT COLON) Procedures: HE/12, Gross/Micro L4/6, H PYLORI, IHC First AB Patient: Aleta Castro N [id number] (Continued) Specimen: [id number] Received: 09/03/23 (Continued) Pathological Diagnosis (Continued) lymphocytic [...] entirely submitted (more content not included)... Normal [facility] Insurance Correspondence Off ice05-08-2023 Insurance Correspondence Office [id number] FF [facility] IntraOperative Documentson 0 04-29-2023 IntraOperative Documents [id number]#1.00TIF F [facility] Postoperative Documentson Postoperative Documents [id number]#1.00TIF F [facility] Main OR Intraoperative Recor don 02-08-2024 Main OR Intraoperative Record IntraOp Document Type FT Summary Primary Physician: Myron Rojas DO Finalized Date/Time: 04/25/23 09:04:33 Pt. Name: ALETA CASTRO/Sex: 2000 Female Med Rec #: [id number] Physician: Myron Rojas DO Financial #: [id number] Pt. Type: A Room/Bed: [place] [address] Admit/Disch: 04/23/23 06:25:15 - 04/23/23 14:50:00 Institution: Case Times FT Entry 1 Patient Times In Room 04/23/23 08:50:00 Out Room 04/23/23 10:59:00 Procedure Times Start 04/23/23 09:17:00 Stop 04/23/23 10:54:00 Anesthesia Times Start 04/23/23 08:50:00 Stop 04/23/23 10:59:00 Block Timeout w/ 04/23/23 07:56:00 Anesthesia Last Modified By: Souleymane MCQUEEN, Lyle Haas 04/23/23 10:59:30 General Comments: Left adductor canal nerve block performed by using ultrasound guidance. RICHAR Clark to assist with the block. Patient's heartrate 89, [id number]% on room air. patient tolerated block well. Patient transported back to ASU bay 4 via cart. Patient placed on continous monitor, cart wheels locked and call light in reach. RICHAR Conrad 04/25/23 Chart opened to review and send charges [facility] CSFA Case Attendance FT Entry 1 Entry 2 Entry [address] DO, David A Krupp RN, Andrea L Role Performed Anesthesiologist Surgeon - Primary Oil Well Drilling Manager - Primary Windows Phone Developer Time In 04/23/23 08:50:00 04/23/23 09:15:00 04/23/23 08:50:00 Time Out 04/23/23 10:59:00 04/23/23 10:44:00 04/23/23 10:59:00 Procedure KNEE ARTHROSCOPY W/ ACL KNEE ARTHROSCOPY W/ ACL KNEE ARTHROSCOPY W/ ACL REPAIR(Left) REPAIR(Left) REPAIR(Left) Comments , anesthesia pit supervisor Last Modified By: Souleymane MCQUEEN, Lyle Comer RN, Lyle Comer RN, Lyle Haas 04/23/23 10:59:32 04/23/23 10:59:32 04/23/23 10:59:32 Entry 4 Entry 5 Entry 6 Case Attendee Regulo Rodgers Laura C Wilhelm CST, Benjamin Role Performed Staff - Other Scrub - Primary SHIFT FOREMAN/SA Time In 04/23/23 08:50:00 04/23/23 08:50:00 04/23/23 [...] Out Diony Way, Given Participants Pocos DO, Souleymane Greene RN, Ana Maria Bennett Kendall R, Miller, Laura C, Wilhelm CST, Benjamin Time Out Complete 04/23/23 09:16:00 Outcomes Met? Yes Last Modified By: Lyle Comer RN 04/23/23 09:23:35 Post-Care Text: The patient is free from signs and symptoms of injury caused by extraneous objects Allergy Information FT Pre-Care Text: Verifies allergies Entry 1 Allergies Reviewed? Yes Allergies Reviewed Self/Patient With Outcomes Met? Yes Last Modified By: Lyel Comer RN 04/23/23 08:08:13 Post-Care Text: The [...] Text: Implements (more content not included)... Normal [facility] Consent for Anesthesiaon Consent for Anesthesia [id number] IFF Normal [facility] Discharge Instructionson Discharge Instructions [id number]#1.00T IFF [facility] IntraOperative Documentson 0 04-24-2023 IntraOperative Documents [id number]#1.00T IFF [facility] Operative Reporton Operative Report SURGERY DATE: 2023 CARDIOLOGY NURSE PRACTITIONER: Garry Camacho CST PREOPERATIVE DIAGNOSIS: Left knee anterior cruciate ligament tear POSTOPERATIVE DIAGNOSIS: Left knee anterior cruciate ligament tear OPERATION: Left knee diagnostic operative arthroscopy with autograft fbfn-adtdwz-jznx anterior cruciate ligament reconstruction with InternalBrace augmentation ANESTHESIA: General as well as regional block ANESTHESIOLOGIST: KARTHIKEYAN Peacock ESTIMATED BLOOD LOSS: 10 mL INTRAVENOUS FLUIDS: Please see the operative record SPECIMEN: None COMPLICATIONS: None IMPLANTS: Arthrex nhte-gawscf-yzao Tightrope system with the button for the same, an 8 x 20 mm anterior cruciate ligament Bio composite screw. On the tibial side on the InternalBrace a 4.75 mm SwiveLock x1. INDICATIONS: Aleta is a 22-year-old white female who had [...] The anterior cruciate ligament was reconstructed using epdf-[id number]-fmkv from patellar tendon autograft with this InternalBrace [...] by over reaming with a 10 mm aligner barrel and receiver. Excess bone debris is again removed. The [...] the femo (more content not included)... Normal [facility] Comment on above: Result Comment: Elec tronically Signed By: Myron Rojas DO\.ammy\Date and Time Signed: 04/24/23 07:15 EST Preoperative Documentson Preoperative Documents [id number]#1.00T IFF [facility] Consent for Procedure/Surger yon 04-23-2023 Consent for Procedure/Surgery [id number]#1.00TIF F [facility] Consent for Treatmenton Consent for Treatment [id number]#1.00TIF F [facility] Discharge Instructionson Discharge Instructions ALETA CASTRO :2000 [...] been scheduled. Call for any problems. Where: [address] [place], [place] [id number] Business (1) Medications What How Much When Instructions Next Dose New acetaminophen-oxycodone (Percocet 5 mg-325 mg oral tablet) 1 Tablets By Mouth As Directed 1-2 po Q4-6h prn pain Dx: S83.512D Duration: 7 days Pickup at [facility]/pharmacy #2345 New aspirin (Ecotrin 325 mg Tab-EC) 1 Tablets By Mouth Every day Pickup at [facility]/pharmacy #2345 Pharmacy Information [facility]/pharmacy #[id number]: [address], [place] [phone] Allergies Banana (Throat tightness, Hives, Vomiting) Latex (Hives, Swelling) azithromycin (Hives) midodrine (Numbness) Education Materials [place], [place] [facility] DISCHARGE INSTRUCTIONS: ANTERIOR CRUCIATE [...] concerns. ___ Myron Rojas DO [facility] [address] [place] [address] Reviewed: 06-23 Revised: 03/29 Common Emergency Awareness [...] your experie (more content not included)... Normal [facility] Comment on above: Result Comment: Elec tronically Signed By: Marcelo MCQUEEN, Shyla Acevedo\.br\Date and Time Signed: 04/23/23 10:58 EST H&P Updateon 04-23-2023 H&P Update [id number]#1.00TIF F [facility] Main OR PACU I Recordon Main OR PACU I Record PACU Phase I Document Type FT Summary Primary Physician: Myron Rojas DO Finalized Date/Time: 04/23/23 12:22:33 Pt. Name: ALETA CASTRO/Sex: 2000 Female Med Rec #: [id number] Physician: Myron Rojas DO Financial #: [id number] Pt. Type: A Room/Bed: [facility]/ Admit/Disch: 04/23/23 06:25:15 - Institution: Case Times [...] Signed By: Valencia Jimenez RN 04/23/23 12:22 [facility] Main OR Preoperative Recordo n 04-23-2023 Main OR Preoperative Record PreOp Document Type FT Summary Primary Physician: Myron Rojas DO Finalized Date/Time: 04/23/23 08:50:41 Pt. Name: ALETA CASTRO Mohinder/Sex: 2000 Female Med Rec #: [id number] Physician: Myrno Rojas DO Financial #: [id number] Pt. Type: A Room/Bed: [facility]/ Admit/Disch: 04/23/23 06:25:15 - Institution: Case Times [...] By: Lyle Comer RN 04/23/23 08:50 Normal [facility] Monitor Recordon 04-23-2023 Monitor Record [id number] FF Normal [facility] Operative Reporton Operative Report Patient: AILEEN CASTRO [...] Using maximal sterile barrier technique per current [facility] guidelines including hand hygeine, Guidance (Ultrasound used [...] patient tolerated the procedure as expected. Normal [facility] Comment on above: Result Comment: Elec tronically Signed By: [facility] (), Cyrus Templeton\.br\Date and Time Signed: 04/23/23 07:56 EST Patient Education - Texton 0 04-23-2023 Patient Education - Text [place], [place] [facility] DISCHARGE INSTRUCTIONS: ANTERIOR CRUCIATE [...] concerns. ___ Myron Rojas DO [facility] [address] [place] [address] Reviewed: 06-23 Revised: 03/29 [facility] Progress Note-Physicianon Progress Note-Physician Patient: ALETA CASTRO [...] Daily, # 21 tab(s), Refills(s) 0, Pharmacy: [facility]/pharmacy #2345, 165, cm, 04/04/23 6:11:00 [...] All Problems H/O: hypothyroidism / SNOMED CT 558706554 / Confirmed POTS (postural orthostatic tachycardia syndrome) / SNOMED CT 3504803761 / Confirmed Physical Examination Vital Signs 04/23/2023 [...] Blood Pressure 1 (more content not included)... [facility] Comment on above: Result Comment: Elec tronically Signed By: Cyrus Modi DO\.br\Date and Time Signed: 04/23/23 11:06 EST Progress Note-Physician Patient: ALETA CASTRO Age: 22 years Sex: Female : 2000 Associated Diagnoses: None Author: Myron Rojas DO Postoperative Information Procedure: L knee scope, ACL recon Preoperative Diagnosis: L ACL tear. Postoperative Diagnosis: same. Performed by: daniel. Windows Phone Developer: Roby Camacho. Specimens Removed: none. Prosthesis: Arthrex. . Estimated Blood Loss: 10 ml. Complications: None. Anesthesia type: General, block. [facility] Comment on above: Result Comment: Elec tronically Signed By: Myron Rojas DO\Date and Time Signed: 04/23/23 10:54 EST Progress Note-Physician Patient: ALETA CASTRO Age: 22 years Sex: Female : 2000 Associated Diagnoses: None Author: [facility] ()Cyrus Preoperative Information Anesthesia history: Patient [...] Daily, # 21 tab(s), Refills(s) 0, Pharmacy: [facility]/pharmacy #2346, 165, cm, 04/04/23 6:11:00 EST, Height/Length Dosing, [...] All Problems H/O: hypothyroidism / SNOMED CT 948967872 / Confirmed POTS (postural orthostatic tachycardia syndrome) / SNOMED CT 1563405265 / Confirmed, Active Problems (2) H/O: hypothyroidism POTS (postural orthostatic tachycardia syndrome) Histories Past Medical History: No active or resolved past medical history items have been selected or recorded. Family History: No family history items have been selected or recorded. Procedure history: Laparoscopic left ovarian R/o ([id number]). Ovarian cyst removal (810820904). Social History Social & Psychosocial Habits Alcohol [...] U beta hCG Ql Negative . Plan [place] Society of Anesthesiologists (ASA) physical status classification: Class II. Anesthetic Preoperative Plan: Anesthesia General. Regional Adductor Canal Block Left. Normal [facility] Comment on above: Result Comment: Elec tronically Signed By: Urbano Lan (), Cyrus Templeton\.br\Date and Time Signed: 04/23/23 07:41 EST U BetaHcg Qualon 04-23-2023 HCG.beta subunit (U) [Moles/Vol] Negative Normal [facility] Comment on above: Performed By: #### 2 [id number] ####[facility] [address] [place] [address] Consent for Procedure/Surger yon 04-16-2023 Consent for Procedure/Surgery [id number]#1.00TIF F Normal [facility] CBC w/ Auto Diffon 4 Basophil Absolute 0.0 E9/L Normal 0.0-0.2 [facility] Comment on above: Performed By: #### 2 407435 ####[facility] [address] [place] [address] Basophils/100 WBC (Bld) 0.4 % Normal 0.0-2.0 [facility] Comment on above: Performed By: #### 2 837568 ####[facility] [address] [address] Eos Absolute 0.1 E9/L Normal 0.0-0.5 [facility] Comment on above: Performed By: #### 2 980981 ####[address] [address] Eosinophils/100 WBC (Bld) 1.0 % Normal 0.0-8.0 [facility] Comment on above: Performed By: #### 2 042691 ####[address] [address] Erythrocyte distribution width (RBC) [Ratio] 12.6 % Normal 10.9-14.2 [facility] Comment on above: Performed By: #### 2 145251 ####[address] [address] Hematocrit (Bld) [Volume fraction] 39.0 % Normal 34.0-46.0 [facility] Comment on above: Performed By: #### 2 253044 ####[address] [address] Hemoglobin (Bld) [Mass/Vol] 13.1 g/dL Normal 12.0-16.0 [facility] Comment on above: Performed By: #### 2 282223 ####[address] [address] Lymph Absolute 1.4 E9/L Normal 1.0-4.0 [facility] Comment on above: Performed By: #### 2 157610 ####[address] [address] Lymphocytes/100 WBC (Bld) 22.2 % Normal 14.0-50.0 [facility] Comment on above: Performed By: #### 2 635701 ####[address] [address] MCH (RBC) [Entitic mass] 30.6 pg Normal 27.0-34.0 [facility] Comment on above: Performed By: #### 2 018287 ####[address] [place] [address] MCHC (RBC) [Mass/Vol] 33.7 g/dL Normal 31.4-36.0 [facility] Comment on above: Performed By: #### 2 477323 ####[address] [address] MCV (RBC) [Entitic vol] 91.0 fL Normal 80.0-100.0 [facility] Comment on above: Performed By: #### 2 438859 ####[address] [address] [place] Absolute 0.4 E9/L Normal 0.2-1.0 [facility] Comment on above: Performed By: #### 2 594426 ####[address] [address] Monocytes/100 WBC (Bld) 5.6 % Normal 4.0-14.0 [facility] Comment on above: Performed By: #### 2 973330 ####[address] [address] Neutro Absolute 4.6 E9/L Normal 2.0-7.5 [facility] Comment on above: Performed By: #### 2 160598 ####[address] [address] Neutro Auto 70.8 % Normal 36.0-75.0 [facility] Comment on above: Performed By: #### 2 196404 ####[address] [address] Platelet 312.0 E9/L Normal 150.0-500.0 [facility] Comment on above: Performed By: #### 2 333436 ####[address] [address] Platelet mean volume (Bld) [Entitic vol] 7.7 fL Normal 6.4-10.8 [facility] Comment on above: Performed By: #### 2 812051 ####[address] [place] [address] RBC 4.3 E12/L Normal 4.3-5.9 [facility] Comment on above: Performed By: #### 2 648445 ####[facility] [address] [place] [address] WBC 6.5 E9/L Normal 4.0-11.0 [facility] Comment on above: Performed By: #### 2 522987 ####[place] [address] [place] [address] Consent for Treatmenton 03-18 Consent for Treatment [id number] F Normal [facility] HEMATOLOGYOrdered By: SYSTEM SYSTEM on 04-03-2023 Basophil [...] Normal 80.0 - 100.0 fL Remisol Heme [place] Absolute 0.4 E9/L Normal 0.2 - 1.0 [...] (COVID-19) RNA QUEENIE+probe Ql (Unsp spec) Negative [facility] [employer] Other COVID/FLU/RSV RT-PCR Negative [facility] [employer] Other Quick Strepon 04-01-2023 S. pyogenes Org specific cx Ql (Throat) Negative [facility] [employer] Other Quick Strep [facility] [employer] Other US Gallbladderon 07-23-2022 US Gallbladder Clinical [...] by Cornelius Hernandez on 07/23/2022 1043 Normal [facility] PAP ACOG PANEL 2: 21 to 29on 05-09-2022 . . Normal [facility] Comment on above: Performed By: #### 4 [id number] #### [facility] [address] [place] [address] Dr. Yovanny Villegas Age Gdln ACOG Testing - [facility] Comment on above: Performed By: #### 4 495034 #### [facility] [address] [place] [address] Dr. Yovanny Villegas DIAGNOSIS: Comment [facility] Comment on above: Result Comment: NEGA TIVE FOR INTRAEPITHELIAL LESION OR MALIGNANCY. Performed By: #### 4 663249 #### [facility] [address] [place] [address] Dr. Yovanny Villegas Methodology: Comment [facility] Comment on above: Result Comment: This liquid based ThinPrep(R) pap test was screened with the use of an image guided system. Performed By: #### 4 230727 #### [facility] [address] [place] [address] Dr. Yovanny Villegas Note: Comment [facility] Comment on above: Result Comment: The Pap smear is a screening test designed to aid in the detection of premalignant and malignant conditions of the uterine cervix. It is not a diagnostic procedure and should not be used as the sole means of detecting cervical cancer. Both false-positive and false-negative reports do occur. . Performed By: #### 4 [id number] #### [facility] [address] [place] [address] Dr. Yovanny Villegas Performed by: Comment Normal [facility] Comment on above: Result Comment: Yanira Navarrete, Marketing Clerk (ASCP) Performed By: #### 4 492941 #### [facility] [address] [place] [address] Dr. Yovanny Villegas Reflex Criteria: Comment [facility] Comment on above: Result Comment: The HPV DNA reflex criteria were not met with this specimen result therefore, no HPV testing was performed. . Performed By: #### 4 589199 #### [facility] [address] [place] [address] Dr. Yovanny Villegas Specimen adequacy: Comment Normal [facility] Comment on above: Result Comment: Sati sfactory for evaluation. Endocervical and/or squamous metaplastic cells (endocervical component) are present. Performed By: #### 4 246294 #### [facility] [address] [place] [address] Dr. Yovanny Villegas CHLAMYDIA/GONOCOCCUS QUEENIE ( AB/URINE/PAPon 07-28-2021 Chlamydia trachomatis, QUEENIE Negative Normal Negative [facility] Comment on above: Performed By: #### C T/NGNA #### [facility] [address] [place] [address] Dr. Yovanny Villegas Neisseria gonorrhoeae, QUEENIE Negative Normal Negative [facility] Comment on above: Performed By: #### C T/NGNA #### [facility] [address] [place] [address] Dr. Yovanny Villegas VAGINITIS/VAGINOSIS DNA PROB Anders 07-27-2021 Rickey species Negative Normal Negative [facility] Comment on above: Performed By: #### V AGINT #### [facility] [address] [place] [address] Dr. Yovanny Villegas Gardnerella vaginalis Negative Normal Negative [facility] Comment on above: Performed By: #### V AGINT #### [facility] [address] [place] [address] Dr. Yovanny Villegas Trichomonas vaginalis Negative Normal Negative [facility] Comment on above: Performed By: #### V AGINT #### [facility] [address] [place] [address] Dr. Yovanny Villegas XR KNEE LEFT (3 [...] Aguilar MD Signed by: Deshaun Aguilar MD 3/9/22 Final result Normal [facility] No fracture or dislocation. [facility] EXAMINATION: THREE XRAY VIEWS OF THE LEFT KNEE 05/24/2021 8:48 pm COMPARISON: None. HISTORY: ORDERING SYSTEM PROVIDED HISTORY: pain eval occult bony injury TECHNOLOGIST PROVIDED HISTORY: pain eval occult bony injury FINDINGS: No fracture, dislocation, or focal osseous lesion is noted. No significant soft tissue abnormality seen. [facility] Dehsaun Aguilar MD - 05/24/2021 EXAMINATION: THREE XRAY VIEWS OF THE LEFT KNEE 05/24/2021 8:48 pm COMPARISON: None. HISTORY: ORDERING SYSTEM PROVIDED HISTORY: pain eval occult bony injury TECHNOLOGIST PROVIDED HISTORY: pain eval occult bony injury FINDINGS: No fracture, dislocation, or focal osseous lesion is noted. No significant soft tissue abnormality seen. IMPRESSION: No fracture or dislocation. [employer] Phone: Radiology Study observation (narrative) [employer] Phone: XR KNEE LEFT (3 VIEWS)Ordere d By: Deshaun Aguilar on 05-24-2021 [employer] Phone: COVID Quick Testingon 2021 Result Negative [employer] Other Quick Strepon 05-01-2021 S. pyogenes Org specific cx Ql (Throat) Positive [employer] Other Quick Strep [employer] Other COVID Quick Testingon 2021 Result Negative [employer] Other Quick Fluon 04-07-2021 FLUAV Ab CF (S) [Titer] Negative [employer] Other FLUBV Ab CF (S) [Titer] Negative [employer] Other XR SACRUM COCCYX (MIN 2 VIEW S)on 12-14-2020 XR SACRUM COCCYX (MIN 2 VIEWS) EXAMINATION: THREE XRAY VIEWS OF THE SACRUM/COCCYX 12/14/2020 3:10 am COMPARISON: None. HISTORY: ORDERING SYSTEM PROVIDED HISTORY: fall at work - hit [id number] TECHNOLOGIST PROVIDED HISTORY: fall at work - hit [id number] FINDINGS: The sacroiliac joints are normally aligned. The visualized portions the pelvis are. There is no fracture of the sacrum or coccyx evident. IMPRESSION: No acute osseous abnormality of the sacrum or coccyx evident. Interpreted by: Loc Oswald MD Signed by: Loc Oswald MD 12/14/20 Final result Normal [facility] XR SACRUM COCCYX (MIN 2 VIEW S)Ordered By: David Dominguez on 12-14-2020 No acute osseous abnormality of the sacrum or coccyx evident. [employer] Phone: EXAMINATION: THREE X RAY VIEWS OF THE SACRUM/COCCYX 12/14/2020 3:10 am COMPARISON: None. HISTORY: ORDERING SYSTEM PROVIDED HISTORY: fall at work - hit [id number] TECHNOLOGIST PROVIDED HISTORY: fall at work - hit [id number] FINDINGS: The sacroiliac joints are normally aligned. The visualized portions the pelvis are. There is no fracture of the sacrum or coccyx evident. [employer] Phone: [employer], p[employer] Incoming Radiant Results From [employer] - 12/14/2020 3:24 AM EDT EXAMINATION: THREE XRAY VIEWS OF THE SACRUM/COCCYX 12/14/2020 3:10 am COMPARISON: None. HISTORY: ORDERING SYSTEM PROVIDED HISTORY: fall at work - hit [id number] TECHNOLOGIST PROVIDED HISTORY: fall at work - hit [id number] FINDINGS: The sacroiliac joints are normally aligned. The visualized portions the pelvis are. There is no fracture of the sacrum or coccyx evident. IMPRESSION: No acute osseous abnormality of the sacrum or coccyx evident. [employer] Phone: [employer] Phone: CT HEAD WO CONTRASTon 2020 CT [...] Maira Cruz MD 09/19/20 Final result Normal [facility] CT Head WO ContrastOrdered B y: Luis Carlos Fragoso on 09-19-[address] examination of the brain. [employer] Phone: EXAMINATION: CT OF T HE HEAD [...] of the visualized skull or soft tissues. [employer] Phone: [employer] Incoming Radiant Results From [employer] - 09/19/2020 4:42 PM EDT EXAMINATION: CT [...] Unremarkable noncontrast CT examination of the brain. [email or web address] Work Phone: [facility] Work Phone: Coding Summaryon 10-27-2019 Coding Summary CODING DATE: 020 [facility] STATUS: Home PAYOR: [facility] ADMIT DX: REASON FOR VISIT DX: [...] Pablo Date Saved: 10/27/2019 03:10 pm Normal [facility] 2019 Novel Coronavirus (CoVI D-19), QUEENIE LCon 10-26-2019 SARS-CoV-2, QUEENIE (COVID-19) LC Not Detected Not Detected [facility] Comment on above: Order Comment: [id number] Result Comment: This test was developed and its performance characteristics determined by [employer]. This test has not been FDA cleared [...] detected) result in this assay. Performed At: [facility] [address] [facility] [place] [id number] Ruba Washburn MD Ph:[phone] Performed By: #### 6 [id number] #### [facility] (DEFAULT) [address] [place] [address] Consent Formson 10-26-2019 Consent Forms [id number]#1.00OTG TIFF [facility] CNCOon 07-15-2017 CNCO Letter TextToll Free : [phone] [facility] - [address] [address]Evvcc: [phone]: [address] [address]Jxqwl: [phone]: [address] [address]Oauet: [phone]: Steve Pablo M.D., Ronaldo Marquez M.D.David Becerril M.D.Papito Sood D.O..Myriam Chaudahri M.D.Deandre Montoya M.D. Matthew Huff M.D.Date: July 15, 2017Re: Aleta Elliott WHOM IT MAY CONCERN:She was seen in our office today.Sincerely,Katelin Cardona PSR(signed electronically to expedite mailing) [facility] CNOVSPon 07-15-2017 CNOVSP Visit (SP) Office ([place]MAC[place]) SYEDA GARAY ([id number]) 89 FDate Time Provider Department07/15/17 3:15 PM [...] well-hydrated,well nourishedNeuro: Gait normal.Collected: 05/15/17 1043Resulting lab: [facility] MAIN LABORATORYValue: (NOTE)Comment: Performing Pathologist: Jo-Ann [...] to develop anyissues certainly could consider further testingAlGordy Lorenz 07/15/2017 3:10 PM SignedPatient went over medication list. no changes .Referring Provider: DAVID BECERRIL [[id number]]Allergies As of Date: 07/15/2017(No Known Allergies)Date Reviewed: [...] As Of Date: 07/15/2017(None)Visit Notes:>> Giovana Norton SatJul 15, 2017 3:10 PM Status: SignedPatient went over medication list. no changes .Encounter Status:Closed by DAVID BECERRIL MD on 07/17/17 Normal [facility] PROGRESSon 07-15-2017 PROGRESS HNO ID: [id number]: David Escaleraervice: (none)Author Type: PhysicianType: Progress NotesFiled: 07/17/2017 1:14 [...] well nourishedNeuro: Gait normal.Collected: 05/15/17 1043Resulting lab: [facility] MAIN LABORATORYValue: (NOTE)Comment: Performing Pathologist: Jo-Ann [...] could consider further testingAljarred Becerril MD Normal [facility] Platelet Func Scrnon 018 COL/ADP Cartridge 85 CT (sec) Normal <118 [facility] Comment on above: Result Comment: Resu lts are reported as Closure Time (CT) in seconds. Performed By: #### P LTSCP ####[facility], [place] [phone] COL/EPI Cartridge 105 CT (sec) Normal <199 [facility] Comment on above: Result Comment: Resu lts are reported as Closure Time (CT) in seconds. Performed By: #### P LTSCP ####[place] [address], [place] [phone] Plt Func Scr Interp (NOTE) Normal [facility] Comment on above: Result Comment: Perf [...] bleeding disorder. Performed By: #### P LTSCP ####[place] [address] [place], [place] [phone] Remote CBCDIF (for [facility] use o nly)on 05-15-2017 Abs Baso <0.03 Normal <0.11 [facility] Comment on above: Performed By: #### R CBCDF ####[place] [address] [place], [place] [phone] Abs [place] 0.53 k/uL Normal <0.87 [facility] Comment on above: Performed By: #### R CBCDF ####[place] [address] [place], [place] [phone] Abs Neut 2.59 k/uL Normal 1.45-7.50 [facility] Comment on above: Performed By: #### R CBCDF ####[place] [address], [place] [phone] Basophils/100 WBC Auto (Bld) 0.4 % Normal [facility] Comment on above: Performed By: #### R CBCDF ####[place] [address] [place], [place] [phone] DTYPE Auto Diff Normal [facility] Comment on above: Performed By: #### R CBCDF ####[place] [address], [place] [phone] Eosinophils 0.07 10*3/uL Normal <0.46 [facility] Comment on above: Performed By: #### R CBCDF ####[place] [address] [place], [place] [phone] Eosinophils/100 leukocytes 1.5 % Normal [facility] Comment on above: Performed By: #### R CBCDF ####[place] [address], [place] [phone] Erythrocyte distribution width Auto Ratio (RBC) 12.2 % Normal 11.5-15.0 [facility] Comment on above: Performed By: #### R CBCDF ####[place] [address] [place], [place] [phone] Erythrocytes (RBC) 4.15 10*6/uL Normal 3.90-5.20 [facility] Comment on above: Performed By: #### R CBCDF ####[place] [address] [address], [place] [phone] Erythrocytes (RBC) 0.0 /100 WBC Normal 0 [facility] Comment on above: Performed By: #### R CBCDF ####[place] [address] [address] [place], [place] [phone] Erythrocytes (RBC) 10*6/uL Normal <0.01 [facility] Comment on above: Performed By: #### R CBCDF ####[place] [address], [place] [phone] Hematocrit (HCT) 39.4 % Normal 36.0-46.0 [facility] Comment on above: Performed By: #### R CBCDF ####[place] [phone] Hemoglobin mass conc (Bld) 12.8 g/dL Normal 11.5-15.5 [facility] Comment on above: Performed By: #### R CBCDF ####[place] [phone] Lymphocytes 1.37 10*3/uL Normal 1.00-4.00 [facility] Comment on above: Performed By: #### R CBCDF ####[place] [phone] Lymphocytes/100 leukocytes 29.9 % Normal [facility] Comment on above: Performed By: #### R CBCDF ####[place] [phone] MCH 30.8 pG Normal 26.0-34.0 [facility] Comment on above: Performed By: #### R CBCDF ####[place] [phone] MCHC mass conc (RBC) 32.5 g/dL Normal 30.5-36.0 [facility] Comment on above: Performed By: #### R CBCDF ####[address] [phone] MCV 94.9 fL Normal 80.0-100.0 [facility] Comment on above: Performed By: #### R CBCDF ####[place] [phone] Monocytes/100 leukocytes 11.6 % Normal [facility] Comment on above: Performed By: #### R CBCDF ####[facility] [place], [place] [phone] Neutrophils/100 WBC Auto (Bld) 56.6 % Normal [facility] Comment on above: Performed By: #### R CBCDF ####[facility] [place], [place] [phone] Platelet mean volume (PMV) 10.2 fL Normal 9.0-12.7 [facility] Comment on above: Performed By: #### R CBCDF ####[address] [phone] Platelets 229 10*3/uL Normal 150-400 [facility] Comment on above: Performed By: #### R CBCDF ####[facility] [place], [place] [phone] WBC (Leukocytes) 4.58 10*3/uL Normal 3.70-11.00 [facility] Comment on above: Performed By: #### R CBCDF ####[facility] [place], [place] [phone] CNCOon 04-29-2017 CNCO Letter TextToll Free : [phone] [facility] - [address] [place], [place] [address]Hyxcz: [phone]: [facility] [place], [place] [address]Iujuv: [phone]: [place] [id number] [place], [place] [address]Fezps: [phone]: Steve Pablo M.D., Ronaldo Marquez M.D.David Becerril M.D.Papito Sood D.O..Myriam Chaudhari M.D.Deandre Montoya M.D. Matthew Huff M.D.Date: April 29, 2017Re: Aleta Elliott WHOM IT MAY CONCERN:She was seen in our office today.Sincerely,Karly Pizarro Psr(signed electronically to expedite mailing) Normal [facility] CNOVSPon 04-29-2017 CNOVSP Visit (SP) Office ([place]) BEVSYEDA MATTHEW STEVEN ([id number]) 89 FDate Time Provider Department04/29/17 2:30 PM [...] deformity, or tenderness.Peripheral pulses: NormalNeuro: Gait normal.ASSESSMENT/PLAN: Summer Tanisha is a 16 year old female with abnormal test asnoted above. No history of bleeding issues. Reviewed findings with the patientand her mother at length. Would check [id number] at this time, further testingbased on results.1. 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 Would check [id number] at this time, furthertesting based on results.1. 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, choice of management likely to be influenced by history ofPOTSAlfred Sandeep Becerril MD Normal [facility] Vital Signs Date Time Vital Sign Value Performing Clinician Facility 10-28-2024 14:39-0400 Body mass index (BMI) [Ratio] 28.49 kg/m2 Pretty ARELLANO Work Phone: [facility] 10-28-2024 14:39-0400 Body weight 75.3 kg Pretty ARELLANO Work Phone: [facility] 10-28-2024 14:39-0400 Diastolic blood pressure 80 mm[Hg] Pretty ARELLANO Work Phone: [facility] 10-28-2024 14:39-0400 Systolic blood pressure 130 mm[Hg] Pretty ARELLANO Work Phone: [facility] 09-30-2024 15:34-0400 Body mass index (BMI) [Ratio] 28.29 kg/m2 Doc William DO Work Phone: [facility] 09-30-2024 15:34-0400 Body weight 74.75 kg Doc William DO Work Phone: [facility] 09-30-2024 15:34-0400 Diastolic blood pressure 72 mm[Hg] Doc William DO Work Phone: [facility] 09-30-2024 15:34-0400 Systolic blood pressure 110 mm[Hg] Doc William DO Work Phone: [facility] 08-05-2024 14:27-0400 Body mass index (BMI) [Ratio] 30.21 kg/m2 Doc William DO Work Phone: [facility] 08-05-2024 14:27-0400 Body weight 79.83 kg Doc William DO Work Phone: [facility] 08-05-2024 14:27-0400 Diastolic blood pressure 76 mm[Hg] Doc William DO Work Phone: [facility] 08-05-2024 14:27-0400 Systolic blood pressure 110 mm[Hg] Doc William DO Work Phone: [facility] 02-26-2024 15:41-0500 Body height 162.6 cm Myron Rojas DO Work Phone: [facility] 02-26-2024 15:41-0500 Body mass index (BMI) [Ratio] 30.21 kg/m2 Myron Pocos DO Work Phone: [facility] 02-26-2024 15:41-0500 Body weight 79.83 kg Myron Rojas DO Work Phone: [facility] 02-19-2024 15:26-0500 Body height 162.6 cm Rosalie Payne MD Work Phone: [facility] 02-19-2024 15:26-0500 Body mass index (BMI) [Ratio] 30.21 kg/m2 Rosalie Payne MD Work Phone: [facility] 02-19-2024 15:26-0500 Body weight 79.83 kg Rosalie Payne MD Work Phone: [facility] 02-19-2024 15:26-0500 Heart rate 88 /min Rosalie Payne MD Work Phone: [facility] 02-19-2024 15:26-0500 SaO2% (BldA) [Mass fraction] 98 % Rosalie Payne MD Work Phone: [facility] 12-09-2023 08:00-0400 Body height 162.6 cm Kelvin Oneal DO Work Phone: [facility] 12-09-2023 08:00-0400 Body mass index (BMI) [Ratio] 30.9 kg/m2 Kelvin Oneal DO Work Phone: [facility] 12-09-2023 08:00-0400 Body weight 81.65 kg Kelvin Oneal DO Work Phone: [facility] 09-02-2023 14:25-0400 Diastolic blood pressure 73 mm[Hg] MD Rosalie Payne Work Phone: [facility] 09-02-2023 14:25-0400 Heart rate 80 /min MD Rosalie Payne Work Phone: [facility] 09-02-2023 14:25-0400 Respiratory rate 18 /min MD Rosalie Payne Work Phone: [facility] 09-02-2023 14:25-0400 SaO2% (BldA) [Mass fraction] 100 % MD Rosalie Payne Work Phone: [facility] 09-02-2023 14:25-0400 Systolic blood pressure 122 mm[Hg] MD Rosalie Payne Work Phone: [facility] 09-02-2023 11:31-0400 Body height 165.1 cm MD Rosalie Payne Work Phone: [facility] 09-02-2023 11:31-0400 Body temperature 98.4 [degF] MD Rosalie Payne Work Phone: [facility] 09-02-2023 11:31-0400 Body weight 77.11 kg MD Rosalie aPyne Work Phone: [facility] 07-25-2023 14:21-0400 Body height 165.1 cm [facility] 07-25-2023 14:21-0400 Body mass index (BMI) [Ratio] 28.3 kg/m2 [facility] 07-25-2023 14:21-0400 Body weight 77.11 kg [facility] 07-25-2023 14:21-0400 Diastolic blood pressure 72 mm[Hg] [facility] 07-25-2023 14:21-0400 Heart rate 81 /min [facility] 07-25-2023 14:21-0400 Systolic blood pressure 111 mm[Hg] [facility] 04-03-2023 14:55-0500 Diastolic blood pressure 87 mm[Hg] Myron Pocos [facility] 04-03-2023 14:55-0500 Heart rate 105 /min Myron Pocos [facility] 04-03-2023 14:55-0500 Mean blood pressure 103 mm[Hg] Myron Pocos [facility] 04-03-2023 14:55-0500 Systolic blood pressure 136 mm[Hg] Myron Pocos [facility] 04-03-2023 14:53-0500 Heart rate 98 /min Myron Pocos [facility] 04-03-2023 14:53-0500 SaO2% (BldA) [Mass fraction] 99 % Myron Pocos [facility] 04-03-2023 14:53-0500 Diastolic blood pressure 96 mm[Hg] Myron Pocos [facility] 04-03-2023 14:53-0500 Mean blood pressure 112 mm[Hg] Myron Pocos [facility] 04-03-2023 14:53-0500 Systolic blood pressure 145 mm[Hg] Myron Pocos [facility] 04-03-2023 14:52-0500 Respiratory rate 16 /min Myron Pocos [facility] 04-01-2023 10:45-0500 Body height 165.1 cm Destineegianfranco Carmona Other [employer] Other 04-01-2023 10:45-0500 Body mass index (BMI) [Ratio] 28.29 kg/m2 Destinee Kristine Other [employer] Other 04-01-2023 10:45-0500 Body temperature 98.1 [degF] Destinee Kristine Other [employer] Other 04-01-2023 10:45-0500 Body weight 77.11 kg Destinee Kristine Other [employer] Other 04-01-2023 10:45-0500 Respiratory rate 18 /min Destinee Kristine Other [employer] Other 04-01-2023 10:45-0500 SaO2% (BldA) [Mass fraction] 99 % Destinee Kristine Other [employer] Other 08-21-2021 11:25-0400 Body height 165.1 cm Carlie Lewismond Other [employer] Other 08-21-2021 11:25-0400 Body mass index (BMI) [Ratio] 27.12 kg/m2 Carlie Martha Other [employer] Other 08-21-2021 11:25-0400 Body temperature 98.6 [degF] Carlie Martha Other [employer] Other 08-21-2021 11:25-0400 Body weight 73.94 kg Carlie Martha Other [employer] Other 08-21-2021 11:25-0400 Respiratory rate 18 /min Carlie Martha Other [employer] Other 08-21-2021 11:25-0400 SaO2% (BldA) [Mass fraction] 97 % Carlie Thomas Other [employer] Other 05-24-2021 20:36-0500 Body temperature 97.7 [degF] Artis Casualingttan DO Work Phone: [email or web address] 05-24-2021 20:36-0500 Diastolic blood pressure 81 mm[Hg] Artis Casualingttan DO Work Phone: [email or web address] 05-24-2021 20:36-0500 Heart rate 101 /min Artis Casualingttan DO Work Phone: [email or web address] 05-24-2021 20:36-0500 Respiratory rate 16 /min Artis Casualingttan DO Work Phone: [email or web address] 05-24-2021 20:36-0500 SaO2% (BldA) [Mass fraction] 97 % Artis Casualingttan DO Work Phone: [email or web address] 05-24-2021 20:36-0500 Systolic blood pressure 131 mm[Hg] Artis Grattan DO Work Phone: [email or web address] 05-11-2021 13:10-0500 Body height 165.1 cm Adriana Evangelista Other [employer] Other 05-11-2021 13:10-0500 Body mass index (BMI) [Ratio] 27.12 kg/m2 Adriana Evangelista Other [employer] Other 05-11-2021 13:10-0500 Body temperature 97.8 [degF] Adriana Evangelista Other [employer] Other 05-11-2021 13:10-0500 Body weight 73.94 kg Adriana Evangelista Other [employer] Other 05-11-2021 13:10-0500 Diastolic blood pressure 90 mm[Hg] Adriana Evangelista Other [employer] Other 05-11-2021 13:10-0500 Respiratory rate 18 /min Adriana Evangelista Other [employer] Other 05-11-2021 13:10-0500 SaO2% (BldA) [Mass fraction] 99 % dAriana Evangelista Other [employer] Other 05-11-2021 13:10-0500 Systolic blood pressure 129 mm[Hg] Ardiana Evangelista Other [employer] Other 05-01-2021 11:40-0500 Body height 165.1 cm Carlie Lewismond Other [employer] Other 05-01-2021 11:40-0500 Body mass index (BMI) [Ratio] 26.62 kg/m2 Carlie Lewismond Other [employer] Other 05-01-2021 11:40-0500 Body temperature 98.6 [degF] Carlie Lewismond Other [employer] Other 05-01-2021 11:40-0500 Body weight 72.58 kg Carlie Lewismond Other [employer] Other 05-01-2021 11:40-0500 Respiratory rate 18 /min Carlie Lewismond Other [employer] Other 05-01-2021 11:40-0500 SaO2% (BldA) [Mass fraction] 99 % Carlie Thomas Other [employer] Other 04-07-2021 12:00-0500 Body height 165.1 cm Wilfridemerita Ramirez Other [employer] Other 04-07-2021 12:00-0500 Body mass index (BMI) [Ratio] 26.62 kg/m2 Sandeep Ramirez Other [employer] Other 04-07-2021 12:00-0500 Body temperature 97.6 [degF] Sandeep Ashley Other [employer] Other 04-07-2021 12:00-0500 Body weight 72.58 kg Sandeep Ashley Other [employer] Other 04-07-2021 12:00-0500 SaO2% (BldA) [Mass fraction] 98 % Wilfrdiemerita Ramirez Other [employer] Other 12-13-2020 23:25-0400 Diastolic blood pressure 89 mm[Hg] David Dominguez MD Work Phone: [email or web address] Work Phone: 12-13-2020 23:25-0400 Systolic blood pressure 141 mm[Hg] David Dominguez MD Work Phone: [email or web address] Work Phone: 12-13-2020 23:23-0400 Body height 165.1 cm David Dominguez MD Work Phone: [email or web address] Work Phone: 12-13-2020 23:23-0400 Body mass index (BMI) [Ratio] 26.63 kg/m2 David Dominguez MD Work Phone: [email or web address] Work Phone: 12-13-2020 23:23-0400 Body temperature 98.29 [degF] David Dominguez MD Work Phone: [email or web address] Work Phone: 12-13-2020 23:23-0400 Body weight 72.58 kg David Dominguez MD Work Phone: [email or web address] Work Phone: 12-13-2020 23:23-0400 Heart rate 79 /min David Dominguez MD Work Phone: [email or web address] Work Phone: 12-13-2020 23:23-0400 Respiratory rate 14 /min David Dominguez MD Work Phone: [email or web address] Work Phone: 12-13-2020 23:23-0400 SaO2% (BldA) [Mass fraction] 99 % David Dominguez MD Work Phone: [email or web address] Work Phone: 09-19-2020 15:56-0400 Body temperature 98.6 [degF] [email or web address] Work Phone: 09-19-2020 15:56-0400 Diastolic blood pressure 90 mm[Hg] [email or web address] Work Phone: 09-19-2020 15:56-0400 Heart rate 103 /min [email or web address] Work Phone: 09-19-2020 15:56-0400 Respiratory rate 16 /min [email or web address] Work Phone: 09-19-2020 15:56-0400 SaO2% (BldA) [Mass fraction] 100 % [email or web address] Work Phone: 09-19-2020 15:56-0400 Systolic blood pressure 139 mm[Hg] [email or web address] Work Phone: Encounters Encounter Date Encounter Type Care Provider Facility Start: 11-03-2024 End: 11-03-2024 Clinisync Result Encounter Generic External Data Provider [facility] External Department Unsolicited Start: 11-03-2024 End: 11-03-2024 Clinisync Result Encounter Generic External Data Provider [facility] External Department Unsolicited Start: 10-28-2024 End: 10-28-2024 Patient encounter procedure Pretty ARELLANO Work Phone: [facility] Start: 10-28-2024 End: 10-28-2024 flow sheet Pretty ARELLANO Work Phone: [facility] Comment on above: Second trimester pre gnancy ([facility]); 23 weeks gestation of ([facility] Diabetes mellitus screening; STD exposure; Well woman exam with routine gynecological exam; Heart palpitations Start: 10-28-2024 End: 10-28-2024 ambulatory PRETTY MCKEON Not Available Start: 10-28-2024 End: 10-28-2024 Bamboo flowsheet Pretty ARELLANO Work Phone: [facility] Start: 10-28-2024 End: 11-03-2024 Bamboo flowsheet Pretty ARELLANO Work Phone: [facility] Start: 10-28-2024 End: 11-03-2024 Clinisync Result [...] sheet Doc William DO Work Phone: [facility]ERTO RODRIGUEZ Comment on above: 19 weeks gestation o f ([facility]); Second trimester ([facility]) Start: 09-30-2024 End: 09-30-2024 ambulatory DOC WILLIAM Not Available Start: 09-28-2024 End: 09-28-2024 Clinisync Result Encounter Generic External Data Provider [facility] External Department Unsolicited Start: 09-28-2024 End: 09-28-2024 Clinisync Result Encounter Generic External Data Provider [facility] External Department Unsolicited Start: 09-02-2024 End: 09-02-2024 flow sheet Pretty ARELLANO Work Phone: [facility] Comment on above: Second trimester pre gnancy ([facility]); 15 weeks gestation of ([facility]); Screening, , for anatomic survey ([facility]) Start: 09-02-2024 End: 09-02-2024 ambulatory PRETTY MCKEON [...] (Primary Dx) Start: 02-26-2024 End: 02-26-2024 ambulatory JC DANIEL Not Available Start: 02-19-2024 End: 02-19-2024 [...] Start: 12-24-2023 End: 12-24-2023 ambulatory Nereyda Vieira FIELD AGRONOMIST Work Phone: [facility] Comment on above: Acute pain of left k nee (Primary Dx); Status post arthroscopic reconstruction of anterior cruciate ligament of left knee using quadriceps tendon autograft Start: 12-24-2023 End: 12-24-2023 Bamboo flowsheet Nereyda Vieira FIELD AGRONOMIST Work Phone: [facility] Start: 12-24-2023 End: 12-24-2023 Bamboo flowsheet Nereyda Vieira FIELD AGRONOMIST Work Phone: [facility] Start: 12-17-2023 [...] Start: 12-03-2023 End: 12-03-2023 ambulatory Nereydaannita Vieira FIELD AGRONOMIST Work Phone: [facility] Comment on above: Acute pain of left k nee (Primary Dx); Status post arthroscopic reconstruction of anterior cruciate ligament of left knee using quadriceps tendon autograft Start: 12-03-2023 End: 12-03-2023 Bamboo flowsheet Nereydaannita Vieira FIELD AGRONOMIST Work Phone: [facility] Start: 12-03-2023 End: 12-03-2023 Bamboo flowsheet Nereyda Vieira FIELD AGRONOMIST Work Phone: [facility] Start: 11-19-2023 End: 11-19-2023 ambulatory Jennifer Dozier FIELD AGRONOMIST [facility] Comment on above: Acute pain of left k nee (Primary Dx); Status post arthroscopic reconstruction of anterior cruciate ligament of left knee using quadriceps tendon autograft Start: 11-19-2023 End: 11-19-2023 Bamboo flowsheet Jennifer Haletersall FIELD AGRONOMIST [facility] Start: 11-19-2023 End: 11-19-2023 Bamboo flowsheet Jennifer Martinoall FIELD AGRONOMIST [facility] Start: 11-12-2023 End: 11-12-2023 ambulatory Nereyda Vieira FIELD AGRONOMIST Work Phone: [facility] Comment on above: Acute pain of left k nee (Primary Dx); Status post arthroscopic reconstruction of anterior cruciate ligament of left knee using quadriceps tendon autograft Start: 11-12-2023 End: 11-12-2023 Bamboo flowsheet Nereyda Vieira FIELD AGRONOMIST Work Phone: [facility] Start: 11-12-2023 End: 11-12-2023 Bamboo flowsheet Nereyda Vieira FIELD AGRONOMIST Work Phone: [facility] Start: 09-02-2023 Non-patient / Non-visit MD Hector Payne Work Phone: [facility] Work Phone: Start: 09-02-2023 End: 09-02-2023 Admission to same day surgery center MD Rosalie Payne Work Phone: [facility] Work Phone: Start: 09-02-2023 End: 09-02-2023 ambulatory MD Rosalie Payne Work Phone: [facility] Work Phone: Start: 07-25-2023 End: 07-25-2023 ambulatory [facility] Work Phone: Start: 07-25-2023 End: 07-25-2023 Patient encounter procedure [facility] Work Phone: Start: 04-23-2023 End: 04-23-2023 ambulatory Jc Pocos Facility:[facility] [place] Start: 04-22-2023 Chart abstracting Pepe Khan gs PT Work Phone: [facility] Start: 04-03-2023 End: 04-04-2023 ambulatory Jc Pocos Facility:[facility] [place] Start: 04-03-2023 End: 04-03-2023 Patient encounter procedure Jc Pocos [facility] Start: 04-01-2023 End: 04-01-2023 ambulatory Destinee Carmona Other [employer] Other Start: 04-01-2023 Office outpatient vi sit 15 minutes Destinee Carmona [facility] Start: 05-01-2022 End: 05-01-[address] DOC THOMAS . Facility:[facility] Start: 08-21-2021 End: 08-21-2021 ambulatory Carlie Thomas Other [employer] Other Start: 08-21-2021 Office outpatient vi sit 15 minutes Carlie Thomas [facility] Start: 07-26-2021 End: 07-26-[address] DOC THOMAS . Facility:[facility] Start: 05-24-2021 Emergency department patient visit ARTIS YODER [facility] Start: 05-24-2021 End: 05-24-2021 Emergency department patient visit Artis Yoder Work Phone: [facility] ED Comment on above: Contusion of left kn ee, initial encounter (Primary Dx) Start: 05-11-2021 End: 05-11-2021 ambulatory Adriana Evangelista Other [employer] Other Start: 05-11-2021 Office outpatient vi sit 15 minutes Adriana Evangelista [facility] Start: 05-01-2021 (URG) Urgent Care Visit Carlie quintanilla [facility] Start: 05-01-2021 End: 05-01-2021 ambulatory Carlie Thomas Other [employer] Other Start: 04-07-2021 End: 04-07-2021 ambulatory Sandeep Ramirez Other [employer] Other Start: 04-07-2021 Office outpatient vi sit 15 minutes Sandeep Ramirez [facility] Start: 12-14-2020 End: 12-14-2020 Emergency department patient visit DAVID DOMINGUEZ [facility] Start: 12-14-2020 End: 12-14-2020 Emergency department patient visit David Dominguez MD Work Phone: [facility] ED Comment on above: Tailbone injury, ini tial encounter (Primary Dx) Start: 09-19-2020 End: 09-19-2020 Emergency department patient visit [facility] ED Comment on above: Closed head injury, initial encounter (Primary Dx) Start: 07-15-2017 End: 07-18-2017 Ambulatory DAVID BECERRIL [facility] Start: 05-15-2017 End: 05-15-2017 [facility] Start: 04-30-2017 End: 04-30-2017 Ambulatory DAVID BECERRIL [facility] Start: 04-29-2017 End: 04-30-2017 [facility] Start: 03-13-2017 End: 03-14-2017 Ambulatory BLANCA PABLO Facility:[facility] Procedures Date Procedure Procedure Detail Performing Clinician Start: 11-03-2024 ALL CBC WITH AUTO DIFF Jessica Steen [employer]ACHINE Work Phone: Start: 10-28-2024 RECURRENT VAGINITIS (HTRX) Jessica patel [employer] Work Phone: Start: 10-28-2024 Urnls dip stick/tablet rgnt non-auto w/o micrscp Jessica Steen [employer] MACHINE Work Phone: Start: 10-28-2024 IGP,APTIMA HPV,AGE GDLN [...] dip stick/tablet rgnt non-auto w/o micrscp Doc Longo DO Work Phone: Start: 07-18-2024 BOX TEST Doc Longo DO Work Phone: Start: 07-18-2024 [facility] DRUG SCREEN RAPID (URINE) Generic Ex ternal Data Provider Start: 07-16-2024 Urnls dip stick/tablet rgnt non-auto w/o micrscp Doc Yarbroughzio DO Work Phone: Start: 02-20-2024 Complete blood count with white cell differential, automated Rosalie Payne MD Work Phone: Start: 02-20-2024 Comprehensive metabolic panel Rosalie huertas MD Work Phone: Start: 02-20-2024 Thyroglobulin antibody Rosalie Payne MD Work Phone: Start: 09-02-2023 Esophagogastroduodenoscopy MD Rosalie robbinsr Work Phone: Start: 05-10-2023 History of reconstruction of anterior cruciate ligament tear Status post arthroscopic reconstruction of anterior cruciate ligament of left knee using quadriceps tendon autograft Nereyda Vieira FIELD AGRONOMIST Work Phone: Start: 05-24-2021 Radiologic examination knee [...] left knee using bone-patellar tendon-bone autograft Myron Washburn Pocobed DO Work Phone: History of reconstru ction of anterior cruciate ligament tear Status post arthroscopic reconstruction of anterior cruciate ligament of left knee using quadriceps tendon autograft Pepe Kirby PT Work Phone: History of reconstru ction of anterior cruciate ligament tear Status post arthroscopic reconstruction of anterior cruciate ligament of left knee using quadriceps tendon autograft Nereyda Vieira FIELD AGRONOMIST Work Phone: History of reconstru ction of anterior cruciate ligament tear Status post arthroscopic reconstruction of anterior cruciate ligament of left knee using quadriceps tendon autograft Pepe Kirby PT Work Phone: History of reconstru ction of anterior cruciate ligament tear Status post arthroscopic reconstruction of anterior cruciate ligament of left knee using quadriceps tendon autograft Nereyda Vieira FIELD AGRONOMIST Work Phone: History of reconstru ction of anterior cruciate ligament tear Status post arthroscopic reconstruction of anterior cruciate ligament of left knee using quadriceps tendon autograft Nereyda Vieira FIELD AGRONOMIST Work Phone: History of reconstru ction of anterior cruciate ligament tear Status post arthroscopic reconstruction of anterior cruciate ligament of left knee using quadriceps tendon autograft Jennifer Dozier FIELD AGRONOMIST Laparoscopic excisio n of cyst of left ovary Myron Rojas Plan of Treatment Date Care Activity Detail Author Start: 11-25-2024 End: 11-25-2024 Patient encounter procedure 11/25/2024 1:50 PM EDT Routine KYE Willis OBTARSHA [address] [place] [phone] Doc Thomas DO [address] [place] [address] [facility] Willis O[facility] Start: 11-16-2024 Influenza vaccination N S [...] mellitus screening Expected: 10/28/2024 (Approximate), Expires: 10/28/2025 [facility] Work Phone: Comment on above: Expected: 10/28/2024 (Approximate), Expires: 10/28/2025 Start: 10-28-2024 End: 10-28-2026 Echocardiogram 2D complete Echocardiogram 2D complete Echocardiography Routine Heart palpitations Expected: 10/28/2024 (Approximate), Expires: 10/28/2026 [facility] Healthcare Comment on above: Expected: 10/28/2024 (Approximate), Expires: 10/28/2026 Start: 10-28-2024 End: 10-28-2025 Measurement of glucose 1 hour after glucose challenge for glucose tolerance test Glucose tolerance, 1 hour Lab Routine Diabetes mellitus screening Expected: 10/28/2024 (Approximate), Expires: 10/28/2025 [facility] Healthcare Comment on above: Expected: 10/28/2024 (Approximate), Expires: 10/28/2025 Start: 09-30-2024 End: 09-30-2024 Patient encounter procedure 09/30/2024 3:40 PM EDT Routine [facility] [address] [place] [phone] Doc Thomas DO [address] [place] [address] [facility] Start: 09-30-2024 End: 09-30-2024 Professional / ancillary services management 09/30/2024 2:30 PM EDT Ancillary Procedure [facility] [address] [place] [place] [phone] [facility] Start: 09-02-2024 End: 09-02-2024 Patient encounter procedure [facility] Comment on above: Arrived Start: 09-02-2024 End: 11-02-2024 Alpha fetoprotein, maternal Alpha fetoprotein, maternal Lab Routine Second trimester ([facility]) Expected: 09/02/2024 (Approximate), Expires: 11/02/2024 [facility] Healthcare Comment on above: Expected: 09/02/2024 (Approximate), Expires: 11/02/2024 Start: 09-02-2024 End: 12-03-2024 US for US OB 14+ weeks anatomy scan Imaging Routine Screening, , for anatomic survey ([facility]) Expected: 09/02/2024, Expires: 12/03/2024 [facility] Work Phone: Comment on above: Expected: 09/02/2024 , Expires: 12/03/2024 Start: 08-05-2024 End: 08-05-2024 Patient encounter procedure [facility] Comment on above: Arrived Start: 07-16-2024 End: 07-16-2025 ABO/Rh ABO/Rh Lab Routine Missed menses , unspecified gestational age Expected: 07/16/2024 (Approximate), Expires: 07/16/2025 [facility] Healthcare Comment on above: Expected: 07/16/2024 (Approximate), Expires: 07/16/2025 Start: 07-16-2024 End: 07-16-2025 Blood type and Indirect antibody screen panel - Blood Type and screen Lab Routine Missed menses , unspecified gestational age Expected: 07/16/2024 (Approximate), Expires: 07/16/2025 [facility] Comment on above: Expected: 07/16/2024 (Approximate), Expires: 07/16/2025 Start: 07-16-2024 End: 07-16-2025 Drugs of abuse panel - Urine by Screen method Rapid drug screen, urine Lab Routine , unspecified gestational age Encounter for supervision of normal first in first trimester Expected: 07/16/2024 (Approximate), Expires: 07/16/2025 [facility] Healthcare Comment on above: Expected: 07/16/2024 (Approximate), Expires: 07/16/2025 Start: 07-10-2024 End: 10-09-2024 US Pelvis transvaginal US OB transvaginal Imaging Routine Missed menses Expected: 07/10/2024, Expires: 10/09/2024 [facility] Work Phone: Comment on above: Expected: 07/10/2024 , Expires: 10/09/2024 Start: 02-21-2024 End: 02-21-2024 Patient encounter procedure 02/21/2024 8:00 AM EST Office Visit [facility] [address] [place] [phone] Myron Rojas, [address] [place] [address] [facility] Start: 02-19-2024 End: 02-19-2024 Patient encounter procedure 02/19/2024 3:30 PM EST Office Visit [facility] [address] [place] [address] Rosalie Payne MD [address] [facility] [address] [place] [address] (Fax) 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CMS/HCC); Chronic fatigue; Cigarette [...] ambulatory 01/17/2024 2:30 PM EDT Treatment [facility] [address] [place] [address] Pepe Kirby, PT [address] [place] [address] [facility] Start: 01-14-2024 End: 01-14-2024 ambulatory 01/14/2024 3:30 PM EDT Treatment [facility] [address] [place] [phone] Nereyda Vieira, FIELD AGRONOMIST [address] [place] [address] [facility] Start: 01-10-2024 End: 01-10-2024 ambulatory 01/10/2024 2:30 PM EDT Treatment [facility] [address] [place] [phone] Pepe Kirby, PT [address] [place] [address] [facility] Start: 01-07-2024 End: 01-07-2024 ambulatory 01/07/2024 3:30 PM EDT Treatment [facility] [address] [place] [phone] Pepe Kirby, PT [address] [place] [address] [facility] Start: 01-03-2024 End: 01-03-2024 ambulatory 01/03/2024 2:30 PM EDT Treatment [facility] [address] [place] [phone] Pepe Kirby, PT [address] [place] [address] [facility] Start: 12-31-2023 End: 12-31-2023 ambulatory 12/31/2023 3:30 PM EDT Treatment [facility] [address] [place] [phone] Jennifer Dozier, EUGENE [facility] Start: 12-27-2023 End: 12-27-2023 ambulatory [facility] Comment on above: Arrived Start: 12-24-2023 End: 12-24-2023 ambulatory 12/24/2023 3:00 PM EDT Treatment [facility] [address] [place] [address] Nereyda Vieira, FIELD AGRONOMIST [address] [place] [address] [facility] Start: 12-17-2023 End: 12-17-2023 ambulatory 12/17/2023 3:00 PM EDT Treatment [facility] [address] [place] [phone] Pepe Kirby, PT [address] [place] [address] [facility] Start: 12-09-2023 End: 12-09-2023 Patient encounter procedure [facility] Comment on above: Arrived Start: 12-03-2023 End: 12-03-2023 ambulatory 12/03/2023 3:30 PM EDT Treatment [facility] [address] [place] [phone] Nereyda Vieira, FIELD AGRONOMIST [address] [place] [address] Arrived [facility] Comment on above: Arrived Start: 11-19-2023 End: 11-19-2023 ambulatory [facility] Comment on above: Acute pain of left k nee (Primary Dx); Status post arthroscopic reconstruction of anterior cruciate ligament of left knee using quadriceps tendon autograft Start: 11-17-2023 Influenza vaccination Influenza Vacc ine (#1) [facility] Start: 09-02-2023 [facility] Start: 05-07-2023 End: 05-07-2023 Patient encounter procedure 05/07/2023 11:10 AM EST Office Visit [facility] [address] [place] [phone] Doc Thomas DO [address] [facility] [place] [address] [facility] Start: 05-03-2023 End: 05-03-2023 Patient encounter procedure 05/03/2023 11:00 AM EST Office Visit [facility] [address] [facility] [address] [place] [address] Myron Rojas, DO [address] [place] [address] [facility] Start: 04-23-2023 End: 04-23-2023 Patient encounter procedure 04/23/2023 8:00 AM EST Procedure Visit [facility] Vaniaobed Myron Washburn, DO [address] [place] [address] [facility] Start: 04-22-2023 End: 04-22-2023 ambulatory 04/22/2023 2:30 PM EST Evaluation [facility] PT [address] [place] [phone] Pepe Kirby, PT [address] [place] [address] [facility] Start: 11-16-2022 Influenza vaccination Influenza Vacc ine (#1) [facility] Start: 08-30-2021 DTaP/Tdap/Td vaccine (5 - Td [...] Hospital Start: 06-09-2014 HIV screening HIV screen [facility] Start: 11-23-2011 Varicella vaccine (2 of 2 - 2-dose childhood series) Varicella vaccine (2 of 2 - 2-dose childhood series) [facility] Start: 2011 COVID-19 Vaccine (1) COVID-19 Vaccin e (1) [employer] Phone: Start: 2011 Depression Screen Depression Screen [facility] Start: 06-09-2010 HPV vaccine (1 - 2-d ose series) HPV vaccine (1 - [facility]-dose series) [facility] Start: 06-09-2004 COVID-19 Vaccine (1) COVID-19 Vaccin e (1) [email or web address] Start: 06-09-2000 Varicella vaccine (1 of 2 - 2-dose childhood series) Varicella vaccine (1 of 2 - 2-dose childhood series) [employer] Phone: Start: 1999 Hepatitis C screening Hepatitis C [facility] Bacteria identified in Urine by Culture Urine culture Microbiology Routine Missed menses Ordered: 07/16/2024 [facility] Comment on above: Ordered: 07/16/2024 CBC W Auto Different ial panel - Blood CBC and differential Lab Routine Missed menses , unspecified gestational age Ordered: 07/16/2024 [facility] Comment on above: Ordered: 07/16/2024 CHLAMYDIA TRACHOMATI S (GENITO/STI) CHLAMYDIA TRACHOMATIS (GENITO/STI) Lab Routine STD exposure Ordered: 10/28/2024 [facility] Comment on above: Ordered: 10/28/2024 Cytology Cervical or vaginal smear or scraping study Pap Smear Pathology and Cytology Routine Well woman exam with routine gynecological exam Ordered: 10/28/2024 [facility] Comment on above: Ordered: 10/28/2024 Hemoglobin A1c/Hemoglobin.total in Blood Hemoglobin A1c Lab Routine Missed menses , unspecified gestational age Ordered: 07/16/2024 [facility] Comment on above: Ordered: 07/16/2024 Hepatitis B virus surface Ag [Presence] in Serum or Plasma by Immunoassay Hepatitis B surface antigen Lab Routine Missed menses , unspecified gestational age Ordered: 07/16/2024 [facility] Comment on above: Ordered: 07/16/2024 Hepatitis C virus Ab [Presence] in Serum or Plasma by Immunoassay Hepatitis C antibody Lab Routine Missed menses , unspecified gestational age Ordered: 07/16/2024 [facility] Comment on above: Ordered: 07/16/2024 HIV-1/HIV-2 antigen/antibody combination immunoassay HIV-1 and HIV-2 antibodies Lab Routine Missed menses , unspecified gestational age Ordered: 07/16/2024 [facility] Comment on above: Ordered: 07/16/2024 Neisseria gonorrhoea e DNA [Presence] in Unspecified specimen by QUEENIE with probe detection Neisseria gonorrhea DNA probe, direct Lab Routine STD exposure Ordered: 10/28/2024 [facility] Comment on above: Ordered: 10/28/2024 Patient Education Hiatal hernia Hemorrhoids Gastritis Know your [facility] Work Phone: Reagin Ab [Presence] in Serum by RPR RPR Lab Routine Missed menses , unspecified gestational age Ordered: 07/16/2024 [facility] Comment on above: Ordered: 07/16/2024 Rubella antibody, IgG Rubella an tibody, IgG Lab Routine Missed menses , unspecified gestational age Ordered: 07/16/2024 [facility] Comment on above: Ordered: 07/16/2024 SURESWAB(R) ADVANCED VAGINITIS PLUS, TMA SURESWAB(R) ADVANCED VAGINITIS PLUS, TMA Pathology and Cytology Routine STD exposure Ordered: 10/28/2024 [facility] Comment on above: Ordered: 10/28/2024 End: 08-05-2025 Thyrotropin [Units/volume] in Serum or Plasma TSH Lab Routine 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CMS/HCC) [id number] for 6 Occurrences starting 08/05/2024 until 08/05/2025 [facility] Work Phone: Comment on above: [id number] for 6 Occurr ences starting 08/05/2024 until 08/05/2025 US Pelvis transvaginal US OB tra nsvaginal Imaging Routine Missed menses 07/16/2024 1:59 PM EDT [facility] Immunizations Immunization Date Immunization Notes Care Provider Fa celsoty 11-12-2016 hepatitis B vaccine, adult dosage Pepe Kirby PT Work Phone: [facility] 11-12-2016 meningococcal oligosaccharide (groups A, C, Y and W-135) diphtheria toxoid conjugate vaccine (MCV4O) Pepe Kirby PT Work Phone: [facility] 03-31-2012 hepatitis A vaccine, pediatric/adolescent dosage, 2 dose schedule Pepe Kirby PT Work Phone: [facility] 08-31-2011 hepatitis A vaccine, pediatric/adolescent dosage, 2 dose schedule Pepe Kirby PT Work Phone: [facility] 08-31-2011 tetanus toxoid, redu leyla diphtheria toxoid, and acellular pertussis vaccine, adsorbed Pepestuart Kirby PT Work Phone: [facility] 08-31-2011 varicella virus vaccine Pepe Kirby PT Work Phone: [facility] 09-11-2000 haemophilus influenz ae type b conjugate and Hepatitis B vaccine Pepe Kirby PT Work Phone: [facility] 09-11-2000 haemophilus influenz ae type b vaccine, HbOC conjugate Pepe Kirby PT Work Phone: [facility] 09-11-2000 hepatitis B vaccine, pediatric or pediatric/adolescent dosage Pepe Kirby PT Work Phone: [facility] 09-11-2000 measles, mumps and r ubella virus vaccine Pepe Kirby PT Work Phone: [facility] 09-11-2000 poliovirus vaccine, inactivated Pepe Kirby PT Work Phone: [facility] 03-26-2000 DTaP-Haemophilus influenzae type b conjugate vaccine Pepe Kirby PT Work Phone: [facility] 03-26-2000 pneumococcal conjuga te vaccine, 7 valent Pepe Kirby PT Work Phone: [facility] 1999 diphtheria, tetanus toxoids and acellular pertussis vaccine, Haemophilus influenzae type b conjugate, and poliovirus vaccine, inactivated ([id number]) Pepe Kirby PT Work Phone: [facility] 1999 diphtheria, tetanus toxoids and acellular pertussis vaccine, Haemophilus influenzae type b conjugate, and poliovirus vaccine, inactivated ([id number]-[id number]) Pepe Kirby PT Work Phone: [facility] 1999 hepatitis B vaccine, pediatric or pediatric/adolescent dosage Pepe Kirby PT Work Phone: [facility] 1999 hepatitis B vaccine, pediatric or pediatric/adolescent dosage Pepe Kirby PT Work Phone: [facility] Payers Date Payer Category Payer Self-pay 2023 Unknown [id number] 2022 Unknown [id number] 2022 Blue [employer] Blue Shield 1.2.8 [id number] 2022 Unknown [id number] 2020 Unknown [id number] [id number] 2006 Private Health Insurance [id number] 1999 Unknown [id number] 2.16.8 40.1.946820.3.579.2.173 1999 Unknown [id number] 2.16.8 40.1.278966.3.579.2.173 1999 Unknown [id number] 2.16.8 40.1.675759.3.579.2.173 1999 Unknown [id number] 2.16.84 0.1.297809.3.579.2.593 1999 Unknown [id number] 2.16.84 0.1.542542.3.579.2.593 1999 Unknown [id number] 2.16.8 40.1.446588.3.579.2.727 1999 Unknown [id number] 2.16.8 40.1.721540.3.579.2.727 1999 Unknown [id number] 2.16.8 40.1.732588.3.579.2.9 1999 Unknown [id number] 2.16.8 40.1.985217.3.579.2.1259 1999 Unknown [id number] 2.16.8 40.1.724217.3.579.2.1258 1999 Unknown [id number] 2.16.8 40.1.906944.3.579.2.9 1999 Unknown [id number] 2.16.84 0.1.637904.3.579.2.1258 1999 Unknown [id number] 2.16.84 0.1.446757.3.579.2.1258 1999 Unknown [id number] 2.16.84 0.1.603181.3.579.2.1258 1999 Unknown [id number] 2.16.84 0.1.658151.3.579.2.1258 1999 Unknown [id number] 2.16.84 0.1.724638.3.579.2.1258 1999 Unknown [id number] 2.16.84 0.1.678678.3.579.2.9 1999 Unknown [id number] 2.16.84 0.1.348374.3.579.2.1258 1999 Unknown [id number] 2.16.84 0.1.587235.3.579.2.1258 1999 Unknown [id number] 2.16.84 0.1.598866.3.579.2.1258 1999 Unknown [id number] 2.16.84 0.1.819296.3.579.2.1258 1999 Unknown [id number] 2.16.84 0.1.368907.3.579.2.1258 1999 Unknown [id number] 2.16.84 0.1.765492.3.579.2.1259 1959 Unknown [id number] 2.1 6.840.1.295734.19 1959 Unknown [id number] [facility] GTFAN [id number] 2.16.840.1.949144.19 Unknown [id number] 2.16.8 40.1.453517.3.579.2.531 Social History Date Type Detail Facility Start: 09-19-2020 End: 12-14-2020 Tobacco smoking status COIS Never smoker [employer] Phone: Start: 09-19-2020 End: 05-10-2023 Tobacco use and exposure Never used [email or web address] Start: 1999 Sex Assigned At Not on file [employer] Phone: Exposure to SARS-CoV -2 (event) Not sure [email or web address] Start: 12-14-2020 End: 05-24-2021 Alcohol intake Current drinker of alcohol (finding) [employer] Phone: Start: 12-14-2020 Alcohol Comment Rare [employer] Phone: Start: 12-11-2022 End: 02-26-2024 Sex Assigned At [facility] Tobacco Current vaping o r e-cigarette use Smokeless Tobacco Use:. Vaping [facility] Tobacco smoking status No Smokin g Status Entered [facility] Start: 02-09-2023 End: 05-10-2023 Tobacco smoking status [facility] Occasional tobacco smoker [facility] Start: 04-15-2023 End: 09-30-2024 Alcohol intake Ex-drinker (finding) [facility] Start: 12-11-2022 End: 02-26-2024 History [...] Only a little [facility] (I/We) worried whe er (my/our) food would run out before [...] Start: 07-25-2023 End: 09-02-2023 Tobacco smoking status [facility] Smoker (finding) [facility] History of tobacco use Cigarette Smoker [facility] Start: 05-30-2024 [facility] Goals Date Patient Goal Desired Activity /State Functional Status Date Assessment Result Facility 04-03-2023 Functional Status No [facility] Clinical Notes 04-07-2021 to 10-28-2024 Jessica Steen [...] Left 2019 OVARIAN CYST REMOVAL Left 05/20/2020 [facility] [place] VAGINAL DELIVERY REVIEW OF SYSTEMS Review [...] nursing note reviewed. Exam conducted with a six horse hitch driver present. Vitals: Estimated body mass index is 28.49 kg/m as calculated from the following: Height as of 02/26/24: 5' 4 . Weight as of this encounter: 166 lb. BP: 130/80 Patient's last menstrual period was 05/16/2024. ASSESSMENT & PLAN ICD-10-CM 1. Second trimester ([facility]) Z34.92 POCT urinalysis dipstick manually resulted 2. 23 weeks gestation of ([facility]) Z3A.23 3. Diabetes mellitus screening Z13.1 CBC [...] and prior work up for palpitations with [facility]. Plan will be to continue TSH every 4 weeks, EKG and cardiac Echo and follow up with [facility] and a referral will be made she declined Metoprolol at this time. Patient is to return to office in 4 week for routine OB appointment. Documented by Jessica Steen NP on behalf of: Jessica Steen NP documented in this encounter [facility] 09-30-2024 History of Present illness Narrative Reason [...] Left 2019 OVARIAN CYST REMOVAL Left 05/20/2020 [facility] [place] VAGINAL DELIVERY REVIEW OF SYSTEMS Review [...] nursing note reviewed. Exam conducted with a six horse hitch driver present. Vitals: Estimated body mass index is 28.29 kg/m as calculated from the following: Height as of 24: 5' 4 . Weight as of this encounter: 164 lb 12.8 oz. BP: 110/72 Patient's last menstrual period was 05/16/2024. ASSESSMENT & PLAN ICD-10-CM 1. 19 weeks gestation of ([facility]) Z3A.19 POCT urinalysis dipstick manually resulted 2. Second trimester ([facility]) Z34.92 POCT urinalysis dipstick manually resulted Patient [...] Doc Thomas DO documented in this encounter [facility] 09-02-2024 History of Present illness Narrative Reason [...] REMOVAL Left 05/20/2020 [facility] William VAGINAL DELIVERY REVIEW OF SYSTEMS Review [...] nursing note reviewed. Exam conducted with a six horse hitch driver present. Vitals: Estimated body mass index is 30.21 kg/m as calculated from the following: Height as of 02/26/24: 5' 4 . Weight as of 08/05/24: 176 lb. BP: Patient's last menstrual period was 05/16/2024. ASSESSMENT & PLAN ICD-10-CM 1. Second trimester ([facility]) Z34.92 Alpha fetoprotein, maternal Alpha fetoprotein, maternal POCT urinalysis dipstick manually resulted 2. 15 weeks gestation of ([facility]) Z3A.15 3. Screening, , for anatomic survey ([facility]) Z36.89 US OB 14+ weeks anatomy scan [...] of: ADAN Gonzalez documented in this encounter [facility] 08-05-2024 History of Present illness Narrative Reason [...] Left 2019 OVARIAN CYST REMOVAL Left 05/20/2020 [facility] William VAGINAL DELIVERY REVIEW OF SYSTEMS Review [...] nursing note reviewed. Exam conducted with a six horse hitch driver present. Vitals: Estimated body mass index is [...] or undercooked meat, and stay away from [facility]. Patient has been consulted regarding any [...] Doc Thomas DO documented in this encounter [facility] 07-16-2024 History of Present illness Narrative Reason [...] or undercooked meat, and stay away from [facility]. Patient has also been advised to [...] Aliya Aguilar LPN documented in this encounter [facility] 02-26-2024 History of Present illness Narrative Images [...] Left 2019 OVARIAN CYST REMOVAL Left 05/20/2020 [facility] William VAGINAL DELIVERY FAMILY HISTORY: Family History [...] 7:42 AM EST documented in this encounter [facility] 02-19-2024 History of Present illness Narrative Images [...] Iron and TIBC documented in this encounter [facility] 12-27-2023 History of Present illness Narrative Physical Therapy Physical Therapy Treatment Visit Patient Name: Aleta Castro Today's Date: 12/27/2023 Visit number: 37 Supervised time: 25 min Total time: 30 min Time in: 2:30 pm Time out: 3:00 pm Subjective [facility] Matthew 23 y.o. female presents to physical therapy [...] at this time. documented in this encounter [facility] 12-17-2023 History of Present illness Narrative Physical [...] Continue as tolerated. documented in this encounter [facility] 12-09-2023 History of Present illness Narrative Images from the original note were not included. @ENCDATE@ [facility] Matthew is a 23 y.o. female [...] operative report and arthroscopic photos available in [facility]. Following the surgery in April [...] Left 2019 OVARIAN CYST REMOVAL Left 05/20/2020 [facility] William VAGINAL DELIVERY FAMILY HISTORY: Family History [...] harvest. Joint spaces preserved. MRI left knee [facility] 10/18/2023 report and images reviewed. ACL [...] note was created using voice recognition through [employer] artificial intelligence. documented in this encounter [facility] 09-02-2023 Procedure note [facility] 09-02-2023 History and physical note Note Date/Time September 02, 2023 11:40am [facility] [address] [place] [address] Gastroenterology H&P Signed Patient: Aleta Castro MR#: [id number] : 2000 Acct:[id number] Age/Sex: 23 / F Adm Date: 4 Loc: Room: Type: [facility] Attending Dr: Marcelle Patel DO Copies [...] by Marcelle Patel DO> 09/02/23 1140 [facility] Work Phone: 1(445) 598-825106-17-2024 [facility] [id number] Evaluation note* Encounter Date Diagnosis Assessment [...] follow up with PCP if symptoms persist. [employer] Other 06-06-2022 Evaluation note* Encounter Date Diagnosis [...] or concerns Aug, Bronchitis (ICD-10 - J40) [employer] Other 03-09-2022 Hospital Discharge instructions* Instructions* Artis [...] be sent through Care Everywhere. * Contusion (German) * Knee Pain or Injury (German) * RICE: General Info (German) [facility] Work Phone: [phone] 322-182702-24-2022 Evaluation note* Encounter Date Diagnosis Assessment Notes Treatment Notes Treatment Clinical Notes Apr, Oral thrush (ICD-10 - B37.0) Use medication as directed. Change toothbrush. Follow up with PCP if symptoms do not improve with treatment [employer] Other 02-14-2022 Evaluation note* Encounter Date Diagnosis [...] Patient care instructions given in writting by [employer] [facility] document. [employer] Other 01-21-2022 Evaluation note* Encounter Date Diagnosis [...] Patient care instructions given in writting by [employer] [facility] document. [employer] Other Evaluation + Plan note Future Appointments Appointment Date:04/23/2023 07:30:00 AM Scheduled Provider: Location:[facility] Diagnosis Closed head injury, initial encounter- Primary documented in this encounter [employer] Work Phone: evaluation note* Diagnosis Tailbone injury, initial encounter- [facility]* Diagnosis Contusion of left knee, initial encounter- Primary [facility] evalalbdqv note* Diagnosis Onset Date Resolution Status Diarrhea acute GERD (gastroesophageal reflux disease) acute Lower abdominal pain acute Nausea acute [facility] Work Phone: Evaluation note* Diagnosis Onset Date Resolution Status Diarrhea acute Dysphagia acute GERD (gastroesophageal reflux disease) acute Lower abdominal pain acute Nausea acute [facility] Work Phone: Evaluation note* Diagnosis Acute [...] of ([facility]) Screening, , for anatomic survey ([facility]) Encounter for anatomic survey documented in this [...] History left ovarian cyst Hospitalization History child [employer] Other Hospital course Narrative No data available for this section [facility]* Attachments The following attachments cannot be sent through Care Everywhere. * Head Injury: Closed: General Info (German) [facility]: Hospital Discharge instructions* Attachments The following attachments cannot be sent through Care Everywhere. * Coccyx Injury (German) [facility]: Hospital Discharge instructions No data available for this section [facility] No data available for this section [facility] Summary Purpose Family History Relationship Condition [...] section and content) DATE CREATED AUTHOR 09/05/2017 [facility] DATE CREATED AUTHOR AUTHOR'S ORGANIZ ATION 09/05/2017 [facility] DATE CREATED AUTHOR AUTHOR'S ORGANIZ ATION 10/28/2019 [facility] DATE CREATED AUTHOR AUTHOR'S ORGANIZ ATION 05/26/2021 [facility] DATE CREATED AUTHOR AUTHOR'S ORGANIZ ATION 05/10/2022 [facility] DATE CREATED AUTHOR AUTHOR'S ORGANIZ ATION 07/24/2022 [facility] dical Specialist DATE CREATED AUTHOR AUTHOR'S ORGANIZ ATION 05/15/2023 [facility] DATE CREATED AUTHOR AUTHOR'S ORGANIZ ATION 09/11/2023 [facility] DATE CREATED AUTHOR AUTHOR'S ORGANIZ ATION 02/08/2024 [facility] DATE CREATED AUTHOR AUTHOR'S ORGANIZ ATION 10/30/2024 [facility] dical Specialists EPIC Reason for Visit (unrecogniz ed section and content) Reason Comments Head Injury headbutted repeated 10 times today around 1255 Headache Nausea Reason Comments Other Pt had a chair pulle d out from under her while at work. Pt fell onto hard ground. Pain in lower back. Reason Comments Knee Pain left knee, was kicke d by resident at [facility] at approx 1930 Specialty Diagnoses / Procedures Referred By Neo amato Referred To Contact Physical Therapy Diagnoses Other specified postprocedural states Personal history of other diseases of the musculoskeletal system and connective tissue Procedures SD THERAPEUTIC PX 1/> AREAS EACH 15 MIN EXERCISES Myron Rojas, DO [address] [facility] [address] [place], [place] Pepe Kirby, PT [address] [place] [address] Referral ID Status Reason Start Date Expiration Date V isits Requested Visits Authorized [id number] Authorized 09/10/2023 03/08/2024 99 99 Reason Comments [...] Care Teams (unrecognized sec tion and content) Object Oriented Developer Relationship Specialty Start Date End Date Rosalie Payne MD [address] [place] [address] PCP - General 05/24/21 Object Oriented Developer Relationship Specialty Start Date End Date Rosalie Payne MD [address] [place] [address] (Fax) PCP - General Family Medicine 07/24/22 [...] Other Provider Active Start: September 02, 2023 Object Oriented Developer Relationship Specialty Start Date End Date Rosalie Payne MD [address] [place] [address] (Fax) PCP - General Family Medicine 07/24/22 Object Oriented Developer Relationship Specialty Start Date End Date Rosalie Payne MD [address] [facility] [place] [address] (Fax) PCP - General Family Medicine 07/24/22 Object Oriented Developer Relationship Specialty Start Date End Date Rosalie Payne MD [address] [facility] [place] [address] (Fax) PCP - General Family Medicine 07/24/22 Object Oriented Developer Relationship Specialty Start Date End Date Rosalie Payne MD [address] [place] [address] (Fax) PCP - General Family Medicine 07/24/22 Object Oriented Developer Relationship Specialty Start Date End Date Rosalie Payne MD [address] [place] [address] (Fax) PCP - General Family Medicine 07/24/22 Object Oriented Developer Relationship Specialty Start Date End Date Rosalie Payne MD [address] [facility] [place] [address] (Fax) PCP - General Family Medicine 07/24/22 Object Oriented Developer Relationship Specialty Start Date End Date Rosalie Payne MD [address] [place] [address] (Fax) PCP - General Family Medicine 07/24/22 Object Oriented Developer Relationship Specialty Start Date End Date Rosalie Payne MD [address] [place] [address] (Fax) PCP - General Family Medicine 07/24/22 Object Oriented Developer Relationship Specialty Start Date End Date Rosalie Payne MD [address] [facility] [place] [address] (Fax) PCP - General Family Medicine 07/24/22 Object Oriented Developer Relationship Specialty Start Date End Date Rosalie Payne MD [address] [place] [address] (Fax) PCP - General Family Medicine 07/24/22 Object Oriented Developer Relationship Specialty Start Date End Date Rosalie Payne MD [address] [place] [address] (Fax) PCP - General Family Medicine 07/24/22 Object Oriented Developer Relationship Specialty Start Date End Date Rosalie Payne MD [address] [place] [address] (Fax) PCP - General Family Medicine 07/24/22 Rosalie Payne MD [address] [place] [address] (Fax) PCP - [facility] 06/16/20 Object Oriented Developer Relationship Specialty Start Date End Date Rosalie Payne MD [address] [place] [address] (Fax) PCP - General Family Medicine 07/24/22 Rosalie Payne MD [address] [place] [address] (Fax) PCP - [facility] [employer] 06/16/20 Object Oriented Developer Relationship Specialty Start Date End Date Rosalie Payne MD [address] [place] [address] (Fax) PCP - General Family Medicine 07/24/22 Rosaile Payne MD [address] [place] [address] (Fax) PCP - [facility] 06/16/20 Object Oriented Developer Relationship Specialty Start Date End Date Rosalie Payne MD [address] [place] [address] (Fax) PCP - General Family Medicine 07/24/22 Rosalie Payne MD [address] [place] [address] (Fax) PCP - [facility] 06/16/20 Object Oriented Developer Relationship Specialty Start Date End Date Rosalie Payne MD [address] [place] [address] (Fax) PCP - General Family Medicine 07/24/22 Rosalie Payne MD [address] [place] [address] (Fax) PCP - [facility] [employer] 06/16/20 Object Oriented Developer Relationship Specialty Start Date End Date Rosalie Payne MD [address] [place] [address] (Fax) PCP - General Family Medicine 07/24/22 Rosalie Payne MD [address] [place] [address] (Fax) PCP - [facility] [employer] 06/16/20 Object Oriented Developer Relationship Specialty Start Date End Date Rosalie Payne MD [address] [place] [address] (Fax) PCP - General Family Medicine 07/24/22 Rosalie Payne MD [address] [place] [address] (Fax) PCP - [facility] [employer] 06/16/20 Object Oriented Developer Relationship Specialty Start Date End Date Rosalie Payne MD [address] [place] [address] (Fax) PCP - General Family Medicine 07/24/22 Rosalie Payne MD [address] [place] [address] (Fax) PCP - [facility] [employer] 06/16/20 Object Oriented Developer Relationship Specialty Start Date End Date Rosalie Payne MD [address] [place] [address] PCP - General Family Medicine 07/24/22 Rosalie Payne MD [address] [place] [address] PCP - [facility] 06/16/20 Goals (unrecognized section and content) [...] BE BASED ON THE PRIMARY CLINICAL RECORDS. [employer] [facility]. provides no warranty or guarantee of the accuracy or completeness of information in this document.
== END 2024-11-12 13:51 | disposition home or self-care (01) ==
LOC: CARD 13:50
PROVIDERS: PCP Family Medicine; Visit Provider Nurse Practitioner Family
DX: R00.2 Palpitations (principal)
CPT/HCPCS: 93005; 93306

== ENCOUNTER 2024-12-26 08:07 | Outpatient (OUT) | payer BC, SELFPAY ==
--- OUTSIDE RECORDS SUMMARY | 2024-12-26 08:09 | XMS_ITS | CCD ---
Author Organization [facility] ion [facility] Care Team Providers Care Second Operator Name Role Phone BECERRIL, DAVID P Unavailable Unavailable BECERRIL, DAVID P Unavailable Unavailable BECERRIL, DAVID P Unavailable Unavailable BECERRIL, DAVID P Unavailable Unavailable BECERRIL, DAVID P Unavailable Unavailable BLANCA PABLO AM Unavailable Unavailable BLANCA PABLO AM Unavailable Unavailable SELF, REFERRED Unavailable Unavailable ROSALIE PAYNE Unavailable Unavailable Unavailable Primary Care Provider Unavailangelia Payne MD, Rosalie Yañez Primary Care Provider DAVID DOMINGUEZ Attending Unavailable [...] able Rosalie Payne MD Primary Care Provider [phone] Pocanaly, Myron Washburn Admitting Unavailable Pocos, Myron Washburn Referring Unavailable Pocos, Myron Washburn Attending Unavailable Pocos, Myron Washburn Referring Unavailable Pocos, Myron Washburn Attending Unavailable Pocanaly, Myron Washburn Admitting Unavailable MD Rosalie Payne Primary Care Provider DO Marcelle Patel Attending Provider [phone] Ly, Marcelle L Attending Unavailable Ly, Marcelle L Admitting Unavailable Rosalie Payne Primary Care Unavailable Rosalie Payne MD Primary Care Provider Rosalie Payne MD Primary Care Provider Rosalie Payne MD Unavailable GERMAINELESA Attending Unavailable WILLIAMDOC YOUNGBLOOD Attending Unavailable DMPRETTY TAPIA Attending Unavailable WILLIAM, DOC Attending Unavailable DMPRETTY TAPIA Attending Unavailable ENIOLUNA ACMPA Attending Unavailable WILLIAM, DOC Attending Unavailable LUNA STEEN Attending Unavailable PEPE KIRYB Attending Unavailable MYRON MARROQUIN Referring Unavailable ROSALIE PAYEN Attending Unavailable MYRON MARROQUIN Attending Unavailable Allergies Allergy Classification Reported Allergen(s) Allergy Type Date of Onset Reaction(s) Facility Latex (1 source) Latex Substance Allergy 1 [facility] Macrolides (antibiotic) (1 source) Azithromycin Drug Allergy 1 [facility] (20 sources) Azithromycin; Translations: [azithromycin] Drug Allergy 1 [facility] (11 sources) Latex; Translations: [Latex] Propensity to adverse reactions to drug 1 [facility] (1 source) Azithromycin Drug Allergy 0 [facility] Rep[facility] (1 source) natural latex rubber Drug allergy (disorder) [facility] (2 sources) Banana Extract; Translations: [Banana] Drug Allergy Vomiting (disorder) [facility] (20 sources) Midodrine; Translations: [midodrine] Drug Allergy 3 Numbness [facility] (20 sources) Latex Allergy to substance [address] [facility] (1 source) Azithromycin Drug Allergy 4 [facility] Repository (1 source) Latex Drug allergy (disorder) 4 [facility] Rep[facility] Medications Current Medications Medication Drug Class(es) Dates Sig (Normalized) Sig (Original) [id number] 200 actuat albuterol 0.09 mg/actuat metered dose [...] 4 times a day prn Aug, Not-Taking/PRN fluconazole 150 mg oral tablet (2 sources) Azole Antifungal Start: 12-09-2024 End: 12-09-2024 fluconazole (Diflucan) 150 MG tablet Indications: Yeast infection Take 1 tablet (150 mg) by mouth 1 (one) time for 1 dose Repeat in 7 days if symptoms persist. 2 tablet 12/09/2024 12/09/2024 Active fluticasone propionate 0.05 mg/actuat metered dose nasal spray (4 sources) Corticosteroid Start: 04-01-2023 fluticasone (F lonase) 50 MCG/ACT nasal spray Start: 04-01-2023 take 1 spray(s) nasa l route once daily Fluticasone Propionate 50 MCG/ACT 1 spray in each nostril Nasally Once a day for 14 15 Mar, 2023 Active Start: 08-21-2021 take 2 spray(s) nasa [...] 6 07/16/2024 08/15/2024 Active ondansetron 4 mg oral tablet (20 sources) Serotonin-3 Receptor Antagonist Start: 11-19-2024 take 1 tablet by mouth every six hours as needed for nausea and nausea, then take 1 tablet by mouth every six hours as needed for nausea and nausea ondansetron (Zofran) 4 MG tablet Indications: Nausea and vomiting in ([facility]) Take 1 tablet (4 mg) by mouth every 6 (six) hours if needed for nausea or vomiting for up to 30 doses Take 1 tablet by mouth every 6 hours as needed for nausea. 30 tablet 3 11/19/2024 Active Start: 10-05-2024 End: 11-04-2024 take 1 tablet by mouth every six hours for nausea ondansetron ODT (Zofran-ODT) 4 MG disintegrating tablet Indications: Nausea and vomiting during ([facility]) Take 1 tablet (4 mg) by mouth every 6 (six) hours if needed for nausea or vomiting 30 tablet 3 10/05/2024 11/04/2024 Active Start: 08-26-2024 End: 09-30-2024 take 1 tablet by mouth every six hours for nausea ondansetron ODT (Zofran-ODT) 4 MG disintegrating tablet Indications: Nausea and vomiting during ([facility]) Take 1 tablet (4 mg) by mouth [...] Orally tid for 10 day(s) Apr, Active polysaccharide iron complex 391 mg oral capsule (5 sources) Start: 11-05-2024 End: 12-05-2024 take 1 capsule by mouth once daily iron polysaccharides (ProFe) 391.3 (180 Fe) MG capsule Indications: Low hemoglobin Take 1 capsule (391.3 mg) by mouth Daily 30 capsule 3 11/05/2024 12/05/2024 Active tiZANidine 4 mg oral tablet (2 [...] mg by mouth daily 0 Active Citalopram [place] bromide Active clotrimazole 10 mg oral lozenge [...] [Irregular menstruation, unspecified] Onset: 4 02-19-2024 Chronic Mycoses (3 sources) Candidal stomatitis; Translations: [Mycosis] Onset: 2 Resolved: 2 Episodic Nausea and vomiting (4 sources) Nausea; Translations: [Nausea] 07-25-2023 Episodic Other bone disease and musculoskeletal deformities (20 sources) [place] Schlatter disease; 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 [...] 04-03-2023 Episodic Other and delivery including normal (16 sources) ; Translations: [Encounter for supervision of [...] [23 weeks gestation of ] 10-28-2024 Episodic Residual codes; unclassified (2 sources) Gestation period, 27 weeks; Translations: [27 weeks gestation of ] 11-25-2024 Episodic Residual codes; unclassified (2 sources) Gestation period, 29 weeks; Translations: [29 weeks gestation of ] 12-09-2024 Episodic Residual codes; unclassified (2 sources) Gestation period, 31 weeks; Translations: [31 weeks gestation of ] 12-23-2024 Episodic Substance-related disorders (20 sources) Cigarette smoker ; Translations: [Nicotine dependence, cigarettes, uncomplicated] Onset: 3 12-10-2022 Chronic Superficial injury; contusion (1 source) Contusion of left knee; Translations: [Contusion of left knee, initial encounter] Episodic Syncope (2 sources) Syncope; Translations: [Syncope] Onset: 5 Episodic Thyroid disorders (20 sources) Gabby thyroiditis; Translations: [Autoimmune thyroiditis] Onset: 3 12-10-2022 Chronic Unclassified (2 sources) Unknown / UNK(Unknown) Onset: 7 Unclassified (2 sources) New Patient; Translations: [New Patient] Onset: 5 Unclassified (2 sources) POTS Onset: 5 Past or Other Problems Problem Classification Problem Date Documented Da te Episodic/Chronic Chronic obstructive pulmonary disease and bronchiectasis (1 source) Bronchitis, not specified as acute or chronic Onset: 08-21-2021 Resolved: 08-21-2021 Episodic Influenza (5 sources) Influenza; Translations: [Influenza A] Other circulatory disease (4 sources) Orthostatic hypotension; [...] Range Facility Urinalysis macro (dipstick) panel (U)on 12-23-2024 Bilirubin, UA Negative Negative - 4(70) +++ mg/dL [facility] Blood, UA Negative Negative - 50 Randall/mcL [facility] Clarity, UA Clear [facility] Color, UA Yellow [facility] Glucose, UA 1+ Negative - 1999(110) ++++ mg/dL [facility] Interpretation and review of laboratory results Abnormal [facility] Ketones, UA Negative Negative - 160(16) ++++ mg/dL [facility] Leukocytes, UA Trace Negative - 500+++ Rick/mcL [facility] Nitrite, UA Negative Negative - Positive [facility] pH, UA 6 5 - 9 [facility] Protein, UA Negative Negative - 2000(20) ++++ mg/dL [facility] Spec Grav, UA 1.015 1 - 1.03 [facility] Urobilinogen, UA 2.0 0.2 - 12 mg/dL [facility] Urinalysis macro (dipstick) panel (U)on 12-09-2024 Bilirubin, UA Negative Negative - 4(70) +++ mg/dL [facility] Blood, UA Negative Negative - 50 Randall/mcL [facility] Healthcare Clarity, UA Clear [facility] Color, UA Yellow [facility] Glucose, UA Negative Negative - 1999(110) ++++ mg/dL [facility] Interpretation and review of laboratory results Abnormal [facility] Ketones, UA Negative Negative - 160(16) ++++ mg/dL [facility] Leukocytes, UA Positive Negative - 500+++ Rick/mcL [facility] Comment on above: 1+ Nitrite, UA Negative Negative - Positive [facility] pH, UA 7 5 - 9 [facility] Protein, UA Negative Negative - 1999(20) ++++ mg/dL [facility] Spec Grav, UA 1.01 1 - 1.03 [facility] Urobilinogen, UA 0.2 0.2 - 12 mg/dL [facility] Office Visiton 11-27-2024 Follow-up visit [id number] Yung Castro er N 2000 F Date Provider Department Center 11/27/2024 [id number] SINGH TRES [place] Family History Family Status - Relation Status Age at Mother Alive Father Alive Level of Service:38034 [facility] OFFICE/OUTPATIENT NEW LOW MDM 30 MINUTES Reason for Visit and Comments: New Patient [632] - New patient here today to establish care with cardiology Syncope [506] POTS [Other] Positive tilt table [Other] 6 months [Other] Normal [facility] Urinalysis macro (dipstick) panel (U)on 11-25-2024 Bilirubin, UA Positive Negative - 4(70) +++ mg/dL [facility] Comment on above: 1+ Blood, UA Negative Negative - 50 Randall/mcL [facility] Clarity, UA Clear [facility] Color, UA Yellow [facility] Glucose, UA Positive Negative - 1999(110) ++++ mg/dL [facility] Comment on above: Trace Interpretation and review of laboratory results Abnormal [facility] Ketones, UA Negative Negative - 160(16) ++++ mg/dL [facility] Leukocytes, UA Negative Negative - 500+++ Rick/mcL [facility] Nitrite, UA Negative Negative - Positive [facility] pH, UA 6 5 - 9 [facility] Protein, UA Positive Negative - 2000(20) ++++ mg/dL [facility] Comment on above: Trace Spec Grav, UA 1.03 1 - 1.03 [facility] Urobilinogen, UA 0.2 0.2 - 12 mg/dL [facility] CA ECHO DOPPLER COMPLETEon 0 11-24-2024 [place] [address] Cardiology Report Signed Patient: ALETA CASTRO MR#: [id number] : 2000 Acct:[id number] Age/Sex: 24 / F ADM Date: 11/12/24 Loc: CARD Attending Dr: Luna Steen Ordering Physician: Luna Steen Date of Service: 11/12/24 Procedure(s): CA echo doppler complete Accession Number(s): [id number] cc: Luna Steen; ROSALIE PAYNE Patient Name: ALETA CASTRO MR#: [id number] : 2000 Exam Date: 11/12/2024 Ordering Doctor: LUNA STEEN [facility] ECHOCARDIOGRAM REPORT PROCEDURE: CA ECHO DOPPLER COMPLETE INDICATIONS: Palpitations COMPARISON: None. DESCRIPTION: COMPLETE ECHOCARDIOGRAM Real-time transthoracic echocardiography with 2D, M-mode, spectral and color flow Doppler performed. QUALITY: Technical quality was good. LEFT VENTRICLE: Normal chamber size. Normal left ventricular wall thickness. LV EF: Global left ventricular systolic function is normal; visually estimated ejection fraction is 55-60 %. No significant wall motion abnormalities. DIASTOLIC: Normal diastolic function. ATRIAL SEPTUM: Inadequately seen. LEFT ATRIUM: Normal chamber size. RIGHT ATRIUM: Normal chamber size. RIGHT VENTRICLE: Normal chamber size. Normal right ventricular systolic function. A moderator band (normal variant) is seen in the RV apex. TRICUSPID VALVE: Normal mobility and thickness. No stenosis with trivial regurgitation. No evidence of pulmonary hypertension. RVSP 16mmHg. MITRAL VALVE: Normal mobility and thickness. No evidence of mitral valve stenosis. There is no mitral annular calcification. Trivial mitral regurgitation. AORTIC VALVE: Normal trileaflet appearance. No visible sclerosis. Normal leaflet mobility. No evidence of aortic valve stenosis. Trivial aortic regurgitation. AORTIC ROOT: Normal diameter and appearance. PULMONIC VALVE: Normal thickness and mobility. No stenosis. No regurgitation. PERICARDIUM: No pericardial effusion. IVC: Collapses with inspiration. Normal size. CONCLUSION: 1. Global left ventricular systolic function is normal; visually estimated ejection fraction is 55 to 60% 2. Normal right ventricular size and systolic function 3. Normal diastolic function 4. The left atrium is normal in size 5. No significant valvular abnormalities Adult Echocardiography Procedure Report Left Ventricle LVEDD (3.7 - 5.6 cm): 4.57 cm LVESD (2.2 - 4.0 cm): 3.23 cm LVIVS thickness (0.6 - 1.2 cm): 0.83 cm LVPW thickness (0.5 - 1.0 cm): 0.99 cm e': 0.15 m/s E - e': 4.12 LVOT Max Gradient: 2.99 mm[Hg] LVOT Area (cm2): 0.86 m/s Peak Velocity (LVOT): 0.86 m/s Mean Velocity (LVOT): 0.61 m/s LVOT Diameter 2.15 cm Left Ventricular Ejection Fraction: 69.67 % Left Atrium LA Volume Index (2D A2C): 22.19 ml/m2 Left Atrium Systolic Dimension: 3.67 cm Mitral Valve MV E to A Ratio: 1.37, 1.16 Mitral Valve A-Wave Peak Velocity: 0.48 m/s Mitral Valve E-Wave Peak Velocity: 0.60 m/s Right Ventricle RV Internal Diastolic Dimension: 2.74 cm Aorta AO Root Diam: 3.10 cm Ascending Ao Diam: 2.55 cm Aortic Valve AoV Area (Peak Billy): 2.36 cm2, 2.36 cm2 AoV Area (VTI): 2.62 cm2, 2.62 cm2 Peak Velocity(Antegrade Flow): 1.32 m/s Peak Gradient(Antegrade Flow): 7.01 mm[Hg] Mean Velocity(Antegrade Flow): 0.85 m/s Mean Gradient(Antegrade Flow): 3.36 mm[Hg] Velocity Time Integral: 21.62 cm Tricuspid Valve Peak Velocity (Regurgitant Flow): 1.83 m/s Pulmonic Valve Mean Gradient: 2.09 mm[Hg], 2.35 mm[Hg], 2.17 mm[Hg] Mean Velocity: 0.68 m/s, 0.72 m/s, 0.69 m/s Peak Velocity: 0.98 m/s Peak Gradient: 3.48 mm[Hg], 3.98 mm[Hg], 3.98 mm[Hg] Right Atrium Right Atrium Systolic Pressure: 16.72 ml, 16.72 ml Dictated by: Davian Ruano M.D. on 11/24/2024 at 16:35 Approved by: Davian Ruano M.D. on 11/24/2024 at 16:39 (more content not included)... [facility] Radiology, Radiologi MD cecelia - 11/24/2024 [place] [address] Cardiology Report Signed Patient: ALETA CASTRO MR#: [id number] : 2000 Acct:[id number] Age/Sex: 24 / F ADM Date: 11/12/24 Loc: CARD Attending Dr: Luna Steen Ordering Physician: Luna Steen Date of Service: 11/12/24 Procedure(s): CA echo doppler complete Accession Number(s): [id number] cc: Luna Steen; ROSALIE PAYNE Patient Name: ALETA CASTRO MR#: [id number] : 2000 Exam Date: 11/12/2024 Ordering Doctor: LUNA STEEN [facility] ECHOCARDIOGRAM REPORT PROCEDURE: CA ECHO DOPPLER COMPLETE INDICATIONS: Palpitations COMPARISON: None. DESCRIPTION: COMPLETE ECHOCARDIOGRAM Real-time transthoracic echocardiography with 2D, M-mode, spectral and color flow Doppler performed. QUALITY: Technical quality was good. LEFT VENTRICLE: Normal chamber size. Normal left ventricular wall thickness. LV EF: Global left ventricular systolic function is normal; visually estimated ejection fraction is 55-60 %. No significant wall motion abnormalities. DIASTOLIC: Normal diastolic function. ATRIAL SEPTUM: Inadequately seen. LEFT ATRIUM: Normal chamber size. RIGHT ATRIUM: Normal chamber size. RIGHT VENTRICLE: Normal chamber size. Normal right ventricular systolic function. A moderator band (normal variant) is seen in the RV apex. TRICUSPID VALVE: Normal mobility and thickness. No stenosis with trivial regurgitation. No evidence of pulmonary hypertension. RVSP 16mmHg. MITRAL VALVE: Normal mobility and thickness. No evidence of mitral valve stenosis. There is no mitral annular calcification. Trivial mitral regurgitation. AORTIC VALVE: Normal trileaflet appearance. No visible sclerosis. Normal leaflet mobility. No evidence of aortic valve stenosis. Trivial aortic regurgitation. AORTIC ROOT: Normal diameter and appearance. PULMONIC VALVE: Normal thickness and mobility. No stenosis. No regurgitation. PERICARDIUM: No pericardial effusion. IVC: Collapses with inspiration. Normal size. CONCLUSION: 1. Global left ventricular systolic function is normal; visually estimated ejection fraction is 55 to 60% 2. Normal right ventricular size and systolic function 3. Normal diastolic function 4. The left atrium is normal in size 5. No significant valvular abnormalities Adult Echocardiography Procedure Report Left Ventricle LVEDD (3.7 - 5.6 cm): 4.57 cm LVESD (2.2 - 4.0 cm): 3.23 cm LVIVS thickness (0.6 - 1.2 cm): 0.83 cm LVPW thickness (0.5 - 1.0 cm): 0.99 cm e': 0.15 m/s E - e': 4.12 LVOT Max Gradient: 2.99 mm[Hg] LVOT Area (cm2): 0.86 m/s Peak Velocity (LVOT): 0.86 m/s Mean Velocity (LVOT): 0.61 m/s LVOT Diameter 2.15 cm Left Ventricular Ejection Fraction: 69.67 % Left Atrium LA Volume Index (2D A2C): 22.19 ml/m2 Left Atrium Systolic Dimension: 3.67 cm Mitral Valve MV E to A Ratio: 1.37, 1.16 Mitral Valve A-Wave Peak Velocity: 0.48 m/s Mitral Valve E-Wave Peak Velocity: 0.60 m/s Right Ventricle RV Internal Diastolic Dimension: 2.74 cm Aorta AO Root Diam: 3.10 cm Ascending Ao Diam: 2.55 cm Aortic Valve AoV Area (Peak Billy): 2.36 cm2, 2.36 cm2 AoV Area (VTI): 2.62 cm2, 2.62 cm2 Peak Velocity(Antegrade Flow): 1.32 m/s Peak Gradient(Antegrade Flow): 7.01 mm[Hg] Mean Velocity(Antegrade Flow): 0.85 m/s Mean Gradient(Antegrade Flow): 3.36 mm[Hg] Velocity Time Integral: 21.62 cm Tricuspid Valve Peak Velocity (Regurgitant Flow): 1.83 m/s Pulmonic Valve Mean Gradient: 2.09 mm[Hg], 2.35 mm[Hg], 2.17 mm[Hg] Mean Velocity: 0.68 m/s, 0.72 m/s, 0.69 m/s Peak Velocity: 0.98 m/s Peak Gradient: 3.48 mm[Hg], 3.98 mm[Hg], 3.98 mm[Hg] Right Atrium Right Atrium Systolic Pressure: 16.72 ml, 16.72 ml Dictated by: Davian Ruano M.D. on 11/24/2024 at 16:35 Approved by: Davian Ruano M.D. on 11/24/2024 at 16:39 Dictated By: Davian Ruano M.D. Signed By: 11/24/24 1640 DD/ 1639 TD/TT: Director Of Slot Operations: [facility] Radiology Study observation (narrative) [facility] CA ECHO DOPPLER COMPLETEOrde red By: Radiologist Radiology on 11-24-2024 [facility] Work Phone: ECG 12-LEADon 11-13-2024 [place] [address] Electrocardiograph Report Signed Patient: ALETA CASTRO MR#: [id number] : 2000 Acct:[id number] Age/Sex: 24 / F ADM Date: 11/12/24 Loc: CARD Attending Dr: Luna Steen Ordering Physician: Luna Steen Date of Service: 11/12/24 Procedure(s): ECG 12 lead Accession Number(s): [id number] cc: [facility] Test Date: 2024-11-12 Pat Name: ALETA CASTRO Department: Room: - 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 Signed By: 11/13/24 1334 11/13/24 1334 DD/ 1206 TD/TT: Director Of Slot Operations: [facility] ECG 12-LEADOrdered By: Radio logist Radiology on 11-13-2024 [facility] Work Phone: ECG 12-LEADon 11-12-2024 Radiology Study observation (narrative) [facility] ALL CBC WITH AUTO DIFFon BASOPHILS ABSOLUTE AUTO 0 [facility] Basophils/100 WBC (Bld) 0.2 % 0.2 - 2.0 % [facility] Eosinophils/100 WBC (Bld) 0.5 % Low 0.9 - 7.0 % [facility] Erythrocyte distribution width (RBC) [Ratio] 12.7 % 11.0 - 15.0 % [facility] Hematocrit (Bld) [Volume fraction] 31.2 % Low 36.0 - 48.0 % [facility] Hemoglobin (Bld) [Mass/Vol] 10.8 g/dL Low 12.0 - 16.0 g/dL [facility] IMMATURE GRANULOCYTES ABS AUTO 0.01 [facility] Immature granulocytes/100 WBC (Bld) 0.2 % 0.0 - 0.5 % [facility] Interpretation and review of laboratory results Abnormal [facility] LYMPHOCYTES ABSOLUTE AUTO 1 Low [facility] Lymphocytes/100 WBC (Bld) 15 % Low 20.5 - 60.0 % [facility] MCH (RBC) [Entitic mass] 32.3 pg 26.7 - 34.0 pg [facility] MCHC (RBC) [Mass/Vol] 34.6 g/dL 29.9 - 35.2 g/dL [facility] MCV (RBC) [Entitic vol] 93.4 fL 81.0 - 99.0 fL [facility] MONOCYTES ABSOLUTE AUTO 0.5 [facility] Monocytes/100 WBC (Bld) 7.7 % 1.7 - 12.0 % [facility] NEUTROPHILS ABSOLUTE AUTO 5 [facility] Neutrophils/100 WBC (Bld) 76.4 % High 43.0 - 75.0 % [facility] Platelet mean volume (Bld) [Entitic vol] 9.7 fL 9.5 - 13.5 fL [facility] TBH EO # 0 [facility] TB PLT [address] [facility] RBC 3.[address] [facility] WBC 6.6 [facility] IGP,APTIMA HPV,AGE GDLNon AGE GDLN ACOG TESTING Note . [facility] Comment on above: TESTS RESULT FLAG U NITS REF RANGE LAB Clinician Provided Cytology Information Source.............Endocervix No. of containers..01 ThinPrep Vial Age Amaris GUERRERO Yaa... FLAG LEGEND: L-Low Normal,H-High Normal,LL-Alert Low,HH-Alert High <-Panic Low,>-Panic High,A-Abnormal,AA-Critical Abnormal Performed at: 01 =[address] [address] Ludy Hector MD, IGP, RFX APTIMA HPV ASCU Note . [facility] Comment on above: TESTS RESULT FLAG UN ITS REF RANGE LAB DIAGNOSIS: 02 NEGATIVE FOR INTRAEPITHELIAL LESION OR MALIGNANCY. THIS SPECIMEN WAS RESCREENED PART OF OUR CLOCK REPAIR TECHNICIAN PROGRAM. Specimen adequacy: 02 Satisfactory for evaluation. No endocervical component is identified. Performed by: 02 Brionna Mello, Finish Mender ([facility]) QC reviewed by: 02 Polina Simons, Finish Mender . 02 Note: Note 02 The Pap [...] <-Panic Low,>-Panic High,A-Abnormal,AA-Critical Abnormal Performed at: [address] [address] Ludy Hector MD, Performed at: = - [address] [id number] Telephone Diaphragm Assembler: Ludy Hector MD, Phone: [phone] Performed at: [address] [id number] Telephone Diaphragm Assembler: Ludy Hector MD, Phone: [phone] [facility] RECURRENT VAGINITIS (HTRX)on 10-30-2024 ATOPOBIUM VAGINAE 0 [facility] ATOPOBIUM VAGINAE Not detected [facility] BVAB 2,3 (BACTERIAL VAGINOSIS ASSOCIATED BACTERIA 2, 3); MOBILUNCUS SPP 0 [facility] BVAB 2,3 (BACTERIAL VAGINOSIS ASSOCIATED BACTERIA 2, 3); MOBILUNCUS SPP Not detected [facility] RICKEY ALBICANS, PARAPSILOSIS, TROPICALIS 0 [facility] RICKEY ALBICANS, PARAPSILOSIS, TROPICALIS Not detected [facility] RICKEY GLABRATA 0 [facility] RICKEY GLABRATA Not detected [facility] RICKEY KRUSEI 0 [facility] RICKEY KRUSEI Not detected [facility] CHLAMYDIA TRACHOMATIS 0 [facility] CHLAMYDIA TRACHOMATIS Not detected [facility] GARDNERELLA VAGINALIS 0 [facility] GARDNERELLA VAGINALIS Not detected [facility] MEGASPHAERA (TYPES 1, 2) 0 [facility] MEGASPHAERA (TYPES 1, 2) Not detected [facility] MYCOPLASMA GENITALIUM 0 [facility] MYCOPLASMA GENITALIUM Not detected [facility] NEISSERIA GONORRHOEAE 0 [facility] NEISSERIA GONORRHOEAE Not detected [facility] TRICHOMONAS VAGINALIS 0 [facility] TRICHOMONAS VAGINALIS Not detected [facility] Urinalysis macro (dipstick) panel (U)on 10-28-2024 Bilirubin, UA Positive Negative - 4(70) +++ mg/dL [facility] Blood, UA Negative Negative - 50 Randall/mcL [facility] Clarity, UA Clear [facility] Color, UA Yellow [facility] Glucose, UA Positive Negative - 2000(110) ++++ mg/dL [facility] Interpretation and review of laboratory results Abnormal [facility] Ketones, UA Positive Negative - 160(16) ++++ mg/dL [facility] Leukocytes, UA Negative Negative - 500+++ Rick/mcL [facility] Nitrite, UA Negative Negative - Positive [facility] pH, UA 6 5 - 9 [facility] Protein, UA Positive Negative - 1999(20) ++++ mg/dL [facility] Spec Grav, UA 1.03 1 - 1.03 [facility] Urobilinogen, UA 0.2 0.2 - 12 mg/dL [facility] US OB CERVICAL LENGTHon 09-16 [place] [address] Ultrasound Report Signed Patient: ALETA CASTRO MR#: [id number] : 2000 Acct:[id number] Age/Sex: 24 / F ADM Date: 10/06/24 Loc: US Attending Dr: Doc Thomas D.O. Ordering Physician: Doc Thomas D.O. Date of Service: 10/06/24 Procedure(s): US OB cervical length Accession Number(s): [id number] cc: Doc Thomas D.O.; ROSALIE PAYNE [address] [address] Patient Name: ALETA CASTRO MRN: [id number] date: 2000 Sex: F Assigned Patient Location: US Current Patient Location: US Accession/Order Number: [id number] Exam Date: 10/06/2024 14:25 Report Date: 10/06/2024 [...] Jr., D.O. 10/06/2024 2:26 PM Dictation Location: [place] [address] Electronically authenticated by: [id number] Y Date: 10/06/2024 14:26 Dictated By: Jermaine Nguyễn M.D. Signed By: 10/06/24 1428 DD/ 25 TD/TT: Director Of Slot Operations: [facility] Radiology, Radiologi MD cecelia - 10/06/2024 [place] [address] Ultrasound Report Signed Patient: ALETA CASTRO MR#: [id number] : 2000 Acct:[id number] Age/Sex: 24 / F ADM Date: 10/06/24 Loc: US Attending Dr: Doc Thomas D.O. Ordering Physician: Doc Thomas D.O. Date of Service: 10/06/24 Procedure(s): US OB cervical length Accession Number(s): [id number] cc: Doc Thomas D.O.; ROSALIE PAYNE [address] [address] Patient Name: ALETA CASTRO MRN: [facility]:[id number] date: 2000 Sex: F Assigned Patient Location: US Current Patient Location: US Accession/Order Number: [id number] Exam Date: 10/06/2024 14:25 Report Date: 10/06/2024 [...] Jr., D.O. 10/06/2024 2:26 PM Dictation Location: [place] [address] Electronically authenticated by: [id number] Y Date: 10/06/2024 14:26 Dictated By: Jermaine Nguyễn M.D. Signed By: 10/06/24 1428 DD/ 25 TD/TT: Director Of Slot Operations: [facility] Rad[facility] Study observation (narrative) [facility] US OB CERVICAL LENGTHOrdered By: Radiologist Radiology on 10-06-2024 [facility] [employer] Work Phone: US OB 14+ WEEKS ANATOMY [...] UA Negative Negative - 4(70) +++ mg/dL [facility] Blood, UA Negative Negative - 50 Randall/mcL [facility] Clarity, UA Clear [facility] Color, UA Yellow [facility] Glucose, UA Negative Negative - 1999(110) ++++ mg/dL [facility] Interpretation and review of laboratory results Normal [facility] Ketones, UA Negative Negative - 160(16) ++++ mg/dL [facility] Leukocytes, UA Negative Negative - 500+++ Rick/mcL [facility] Nitrite, UA Negative Negative - Positive [facility] pH, UA 6 5 - 9 [facility] Protein, UA Negative Negative - 1999(20) ++++ mg/dL [facility] Spec Grav, UA 1.005 1 - 1.03 [facility] Urobilinogen, UA 1.0 0.2 - 12 mg/dL [facility] ALL THYROID STIM HORMONEon 0 09-28-2024 TSH Qn 0.836 m[IU]/L [facility] Urinalysis macro (dipstick) panel (U)on 09-02-2024 Bilirubin, UA Negative Negative - 4(70) +++ mg/dL [facility] Blood, UA Negative Negative - 50 Randall/mcL [facility] Clarity, UA Clear [facility] Color, UA Yellow [facility] Glucose, UA Negative Negative - 1999(110) ++++ mg/dL [facility] Interpretation and review of laboratory results Normal [facility] Ketones, UA Negative Negative - 160(16) ++++ mg/dL [facility] Leukocytes, UA Negative Negative - 500+++ Rick/mcL [facility] Nitrite, UA Negative Negative - Positive [facility] pH, UA 6 5 - 9 [facility] Protein, UA Negative Negative - 1999(20) ++++ mg/dL [facility] Spec Grav, UA 1.025 1 - 1.03 [facility] Urobilinogen, UA 0.2 0.2 - 12 mg/dL [facility] ALL THYROID STIM HORMONEon 0 08-31-2024 TSH Qn 1.413 m[IU]/L [facility] Urinalysis macro (dipstick) panel (U)on 08-05-2024 Bilirubin, UA Negative Negative - 4(70) +++ mg/dL [facility] Blood, UA Negative Negative - 50 Randall/mcL [facility] Clarity, UA Clear [facility] Color, UA Yellow [facility] Glucose, UA Negative Negative - 1999(110) ++++ mg/dL [facility] Interpretation and review of laboratory results Abnormal [facility] Ketones, UA Positive Negative - 160(16) ++++ mg/dL [facility] Comment on above: 40 Leukocytes, UA Trace Negative - 500+++ Rick/mcL [facility] Nitrite, UA Negative Negative - Positive [facility] pH, UA 6.5 5 - 9 [facility] Protein, UA Negative Negative - 2000(20) ++++ mg/dL [facility] Spec Grav, UA 1.025 1 - 1.03 [facility] Urobilinogen, UA 1.0 0.2 - 12 mg/dL [facility] BOX TESTon 07-18-2024 BOX TEST SENT OUT [facility] BOX1 [facility] BOX2 07/18/24 [facility] DRUG SCREEN RAPID (URINE )on 07-18-2024 AMPHETAMINE SCREEN URINE Negative NEGATIVE [facility] BARBITURATES SCREEN URINE Negative NEGATIVE [facility] BENZODIAZEPINES SCREEN URINE Negative NEGATIVE [facility] BUPRENORPHINE SCREEN URINE Negative NEGATIVE [facility] Comment on above: DRUG CLASS TEST SYST [...] 300 ng/mL CANNABINOID SCREEN URINE Negative NEGATIVE [facility] COCAINE SCREEN URINE Negative NEGATIVE [facility] METHADONE SCREEN URINE Negative NEGATIVE [facility] METHAMPHETAMINES SCREEN URINE Negative NEGATIVE [facility] OPIATE SCREEN URINE Negative NEGATIVE [facility] OXYCODONE SCREEN URINE Negative NEGATIVE [facility] PHENCYCLIDINE SCREEN URINE Negative NEGATIVE [facility] TRICYCLIC ANTIDEPRESSANT URINE Negative NEGATIVE [facility] HCG ( test) Ql (U)o n 07-16-2024 Interpretation and review of laboratory results Abnormal [facility] Preg Test, Ur Positive Negative [facility] US OB TRANSVAGINALon 025 US OB TRANSVAGINAL [...] II, MD, PHD at 19-Jul-2024 08:55:15 PM [facility] Normal Not Available Comment on above: Order Comment: US OB TRANSVAGINAL No LMP recorded. Urinalysis macro (dipstick) panel (U)on 07-16-2024 Bilirubin, UA Negative Negative - 4(70) +++ mg/dL [facility] Blood, UA Negative Negative - 50 Randall/mcL [facility] Clarity, UA Clear [facility] Color, UA Yellow [facility] Glucose, UA Negative Negative - 1999(110) ++++ mg/dL [facility] Interpretation and review of laboratory results Normal [facility] Ketones, UA Negative Negative - 160(16) ++++ mg/dL [facility] Leukocytes, UA Negative Negative - 500+++ Rick/mcL [facility] Nitrite, UA Negative Negative - Positive [facility] pH, UA 6.5 5 - 9 [facility] Protein, UA Negative Negative - 2000(20) ++++ mg/dL [facility] Spec Grav, UA 1.02 1 - 1.03 [facility] Urobilinogen, UA 1.0 0.2 - 12 mg/dL [facility] CBC W Auto Differential pane l (Bld)on 02-21-2024 Band form neutrophils (Bld) [#/Vol] CANCELED [facility] Comment on above: Result canceled by t ancillary. Band form neutrophils/100 WBC (Bld) CANCELED % [facility] Comment on above: Result canceled by t ancillary. Basophils (Bld) [#/Vol] 19 10*3/uL [facility] Basophils/100 WBC (Bld) 0.4 % [facility] Blasts (Bld) [#/Vol] CANCELED 0 cells/uL [facility] Comment on above: Result canceled by t he ancillary. Blasts/100 WBC (Bld) CANCELED % [facility] Comment on above: Result canceled by t ancillary. Eosinophils (Bld) [#/Vol] 91 10*3/uL [facility] Eosinophils/100 WBC (Bld) 1.9 % [facility] Erythrocyte distribution width (RBC) [Ratio] 12.5 % 11.0 - 15.0 % [facility] Hematocrit (Bld) [Volume fraction] 38.9 % 35.0 - 45.0 % [facility] Hemoglobin (Bld) [Mass/Vol] 12.8 g/dL 11.7 - 15.5 g/dL [facility] Lymphocytes (Bld) [#/Vol] 1282 10*3/uL [facility] Lymphocytes/100 WBC (Bld) 26.7 % [facility] MCH (RBC) [Entitic mass] 30.6 pg 27.0 - 33.0 pg [facility] MCHC (RBC) [Mass/Vol] 32.9 g/dL 32.0 - 36.0 g/dL [facility] Comment on above: For adults, a [...] Healthcare Metamyelocytes (Bld) [#/Vol] CANCELED 0 cells/uL [facility] Comment on above: Result canceled by t he ancillary. Metamyelocytes/100 WBC (Bld) CANCELED % [facility] Comment on above: Result canceled by t he ancillary. Monocytes (Bld) [#/Vol] 422 10*3/uL [facility] Monocytes/100 WBC (Bld) 8.8 % [facility] Myelocytes (Bld) [#/Vol] CANCELED 0 cells/uL [facility] Comment on above: Result canceled by t he ancillary. Myelocytes/100 WBC (Bld) CANCELED % [facility] Comment on above: Result canceled by t he ancillary. Neutrophils (Bld) [#/Vol] 2986 10*3/uL [facility] Neutrophils/100 WBC (Bld) 62.2 % [facility] Nucleated RBC (Bld) [#/Vol] CANCELED 0 cells/uL [facility] Comment on above: Result canceled by t he ancillary. Nucleated RBC/100 WBC (Bld) [Ratio] CANCELED 0 /100 WBC [facility] Comment on above: Result canceled by t he ancillary. Platelet mean volume (Bld) [Entitic vol] 9.3 fL 7.5 - 12.5 fL [facility] Platelets (Bld) [#/Vol] 291 10*3/uL [facility] Promyelocytes (Bld) [#/Vol] CANCELED 0 cells/uL [facility] Comment on above: Result canceled by t he ancillary. Promyelocytes/100 WBC (Bld) CANCELED % [facility] Comment on above: Result canceled by t he ancillary. RBC (Bld) [#/Vol] 4.18 10*6/uL [facility] Service comment (Unsp spec) [Interp] CANCELED [facility] Comment on above: Result canceled by [facility] ancillary. Variant lymphocytes/100 WBC (Bld) CANCELED 0 - 10 % [facility] Comment on above: Result canceled by t ancillary. WBC (Bld) [#/Vol] 4.8 10*3/uL [facility] Iron and Iron binding capaci ty panelon 02-21-2024 Iron [Mass/Vol] 101 ug/dL [facility] Iron binding capacity [Mass/Vol] 340 [facility] Iron saturation [Mass fraction] 30 [facility] Laboratory - Chemistry and C hemistry - challengeon 02-21-2024 Albumin [Mass/Vol] 4.8 g/dL 3.6 - 5.1 g/dL [facility] Albumin/Globulin [Mass ratio] 1.8 {ratio} [facility] ALP [Catalytic activity/Vol] 65 U/L 31 - 125 U/L [facility] ALT [Catalytic activity/Vol] 16 U/L 6 - 29 U/L [facility] AST [Catalytic activity/Vol] 14 U/L 10 - 30 U/L [facility] Bilirubin [Mass/Vol] 0.6 mg/dL 0.2 - 1 .2 mg/dL [facility] Calcium [Mass/Vol] 9.3 mg/dL 8.6 - 10. 2 mg/dL [facility] Chloride [Moles/Vol] 107 mmol/L 98 - 11 0 mmol/L [facility] CO2 [Moles/Vol] 24 mmol/L 20 - 32 mmol/L [facility] Cortisol [Mass/Vol] 14.3 ug/dL mcg/dL [facility] Comment on above: Reference Range: For 8 a.m.(7-9 a.m.) Specimen: 4.0-22.0 Reference Range: For 4 p.m.(3-5 p.m.) Specimen: 3.0-17.0 * Please interpret above results accordingly * Creatinine [Mass/Vol] 0.71 mg/dL 0.50 - 0.96 mg/dL [facility] GFR/1.73 sq M.predicted among non-blacks MDRD (S/P/Bld) [Vol rate/Area] 122 mL/min/{1.73_m2} > OR = 60 mL/min/1.73m 2 [facility] Globulin (S) [Mass/Vol] 2.6 g/dL [facility] Glucose [Mass/Vol] 95 mg/dL 65 - 99 mg/dL [facility] Comment on above: Fasting reference interval Potassium [Moles/Vol] 4.2 mmol/L 3.5 - 5.3 mmol/L [facility] Protein [Mass/Vol] 7.4 g/dL 6.1 - 8.1 g/dL [facility] Sodium [Moles/Vol] 139 mmol/L 135 - 146 mmol/L [facility] Urea nitrogen [Mass/Vol] 16 mg/dL 7 - 25 mg/dL [facility] Urea nitrogen/Creatinine [Mass ratio] SEE NOTE: [facility] Comment on above: Not Reported: BUN an d Creatinine are within reference range. Laboratory - Serology - non- microon 02-21-2024 Thyroglobulin Ab Qn 153 [IU]/mL High < or = 1 IU/mL [facility] TPO Ab Qn 27 [IU]/mL High NINF [facility] No Panel Informationon 02-20 Interpretation and review of laboratory results Abnormal [facility] Performing Organizat ion Information Site ID: QTW Name: [facility] Address: [address] [place] [id number] Director: Urvashi Gtz [facility] Performing Organizat ion Information Site ID: QPT Name: [employer] [facility] Address: [address] [place] [address], [address] [place], [place] [id number] Director: Yonis Beck MD [facility] T3, [facility] 02-05-2024 Free T3 [Mass/Vol] 3.6 pg/mL Normal 2.3-4.2 [employer] Comment on above: Performed By: #### 8 94, [id number], 866 #### [employer] [address], [address] [place] [address] [employer]otive [employer] Cashier: Yonis Beck MD T4, FREE 02-05-2024 Free T4 [Mass/Vol] 1.1 ng/dL Normal 0.8-1.8 [facility] Comment on above: Order Comment: FASTI NG:NO FASTING: NO Performed By: #### 8 99, 67230, 866 #### [facility] [address], [address] [place] [address] [employer] Cashier: Yonis Beck MD TSHon 02-05-2024 TSH Qn 1.98 m[IU]/L Normal [facility] Comment on above: Result Comment: Refe rence Range > or = 20 Years 0.40-4.50 Ranges First trimester 0.26-2.66 Second trimester 0.55-2.73 Third trimester 0.43-2.91 Performed By: #### 8 99, 16843, 866 #### [facility] [address], [address] [place] [address] [employer] Cashier: Yonis Beck MD HCG ( test) IA.rapi d Ql (U)Ordered By: Marcelle Patel on 09-02-2023 HCG ( test) Ql (U) Negative [facility] HCG,Urineon 09-02-2023 Beta HCG ( test) Ql (U) Negative Normal [facility] Comment on above: Result Comment: PERF ORMED BY: [place] [address] PATHOLOGIST INVOICE CLERK RAYMOND SUERO M.D. Performed By: #### U HCG #### [address] Chaitanya 09-02-2023 L Specimen: [id number] Received: 09/03/23 Status: FRANKLYN Yassine Num: [id number] Spec Type: Surgical Subm Dr: Marcelle Patel DO Tissues: A Small Intestine - Biopsy/Polyp (SMALL BOWEL BX) B GASTRIC FOR HP (GASTRIC HP) C Esophagus Biopsy (DISTAL ESOPHAGUS) D Esophagus Biopsy (PROXIMAL ESOPHAGUS) E Colon Biopsy (RANDOM RT COLON) F Colon Biopsy (RANDOM LT COLON) Procedures: , Gross/Micro L4/6, H PYLORI, IHC First AB Age/ Patient Sex Location Account Attending Physician Aleta Castro 23/ [id number] Marcelle Patel DO SPEC NUM: [id number] RECD: 09/03/23 STATUS: FRANKLYN GONZALES NUM: [id number] MIRIAM: 09/02/23- SUBM DR: Marcelle Patel DO ENTERED: 09/03/[address] [facility] DR: SPEC TYPE: Surgical DEPT: S [...] mild squamous acanthosis and occasionally associated Specimen: [id number] Received: 09/03/23 Status: FRANKLYN Gonzales Num: [id number] Spec Type: Surgical Subm Dr: Marcelle Patel DO Tissues: A Small Intestine - Biopsy/Polyp (SMALL BOWEL BX) B GASTRIC FOR HP (GASTRIC HP) C Esophagus Biopsy (DISTAL ESOPHAGUS) D Esophagus Biopsy (PROXIMAL ESOPHAGUS) E Colon Biopsy (RANDOM RT COLON) F Colon Biopsy (RANDOM LT COLON) Procedures: HE/12, Gross/Micro L4/6, H PYLORI, IHC First AB Patient: MatthewAleta N [id number] (Continued) Specimen: [id number] Received: 09/03/23 (Continued) Pathological Diagnosis (Continued) Signed (signature on file) Heather Villegas MD 09/05/23 1417 Specimen: [id number] Received: 09/03/23 Status: FRANKLYN Gonzales Num: [id number] Spec Type: Surgical Subm Dr: Marcelle Patel DO Tissues: A Small Intestine - Biopsy/Polyp (SMALL BOWEL BX) B GASTRIC FOR HP (GASTRIC HP) C Esophagus Biopsy (DISTAL ESOPHAGUS) D Esophagus Biopsy (PROXIMAL ESOPHAGUS) E Colon Biopsy (RANDOM RT COLON) F Colon Biopsy (RANDOM LT COLON) Procedures: HE/12, Gross/Micro L4/6, H PYLORI, IHC First AB Patient: Aleta Castro [id number] (Continued) Specimen: [id number] Received: 09/03/23 (Continued) Pathological Diagnosis (Continued) lymphocytic [...] content not included)... Normal [facility] Insurance Correspondence Off ice05-08-2023 Insurance Correspondence Office [id number]#1.00TI FF [facility] IntraOperative Documentson 0 04-29-2023 IntraOperative Documents [id number]#1.00TIF F [facility] Postoperative Documentson Postoperative Documents [id number]#1.00TIF F [facility] Main OR Intraoperative Recor don 04-25-2023 Main OR Intraoperative Record IntraOp Document Type FT Summary Primary Physician: Myorn Marroquin DO Finalized Date/Time: 04/25/23 09:04:33 Pt. Name: ALETA CASTRO/Sex: 2000 Female Med Rec #: [id number] Physician: Myron Marroquin DO Financial #: [id number] Pt. Type: A Room/Bed: [place] [address] Admit/Disch: 04/23/23 06:25:15 - 04/23/23 14:50:00 Institution: [...] nerve block performed by using ultrasound guidance. Eduardo RN to assist with the block. Patient's heartrate 89, sc13-845% on room air. patient tolerated block well. [...] Haas Role Performed Anesthesiologist Surgeon - Primary Group Chief Operator - Primary Licensed Physical Therapist Assistant Time In 04/23/23 08:50:00 04/23/23 09:15:00 04/23/23 08:50:00 Time Out 04/23/23 10:59:00 04/23/23 10:44:00 04/23/23 10:59:00 Procedure KNEE ARTHROSCOPY W/ ACL KNEE ARTHROSCOPY W/ ACL KNEE ARTHROSCOPY W/ ACL REPAIR(Left) REPAIR(Left) REPAIR(Left) Comments , anesthesia supervisor braiding Last Modified By: Souleymane RN, Lyle Comer RN, Lyle Comer RN, Lyle Haas 04/23/23 10:59:32 04/23/23 10:59:32 04/23/23 10:59:32 Entry 4 Entry 5 Entry 6 Case Attendee Regulo Rodgers Laura C Wilhelm CST, Garry Elizabeth Performed Staff - Other Scrub - Primary CATHETERIZATION LABORATORY TECHNICIAN/SA Time In 04/23/23 08:50:00 04/23/23 08:50:00 04/23/23 08:50:00 Time Out 04/23/23 10:59:00 04/23/23 10:59:00 04/23/23 10:59:00 Procedure KNEE ARTHROSCOPY W/ ACL KNEE ARTHROSCOPY W/ ACL KNEE ARTHROSCOPY W/ ACL REPAIR(Left) REPAIR(Left) REPAIR(Left) Comments 2ND SCRUB AT THE SURGICAL FIELD Last Modified By: Souleymane RN, Lyle Comer [...] Time Out [address], Given Participants Pocos , Souleymane Greene RN, Ana Maria Bennett Kendall R, Miller, Laura C, Garry Camacho CST Time Out Complete 04/23/23 09:16:00 Outcomes Met? [...] Procedure Yes Primary Surgeon Myron Marroquin DO 04/23/23 09:17:00 Stop 04/23/23 10:54:00 Anesthesia Type [...] Text: Implements (more content not included)... Normal [facility] Consent for Anesthesiaon Consent for Anesthesia [id number]#1.00T IFF Normal [facility] Discharge Instructionson Discharge Instructions [id number]#1.00T IFF Normal [facility] IntraOperative Documentson 0 04-24-2023 IntraOperative Documents [id number]#1.00T IFF Normal [facility] Operative Reporton Operative Report SURGERY DATE: 2023 WORSHIP LEADER: Garry Camacho CST PREOPERATIVE DIAGNOSIS: Left knee anterior cruciate ligament tear POSTOPERATIVE DIAGNOSIS: Left knee anterior cruciate ligament tear OPERATION: Left knee diagnostic operative arthroscopy with autograft yvkg-oeymao-peyw anterior cruciate ligament reconstruction with InternalBrace augmentation ANESTHESIA: General as well as regional block ANESTHESIOLOGIST: KARTHIKEYAN Peacock ESTIMATED BLOOD LOSS: 10 mL INTRAVENOUS FLUIDS: Please see the operative record SPECIMEN: None COMPLICATIONS: None IMPLANTS: Arthrex [id number] Tightrope system with the button for the [...] The anterior cruciate ligament was reconstructed using mvjf-nmwqez-ptip from patellar tendon autograft with this InternalBrace [...] by over reaming with a 10 mm tank car reconditioner. Excess bone debris is again removed. The [...] on the femo (more content not included)... [facility] Comment on above: Result Comment: Elec tronically Signed By: Myron Marroquin DO\.br\Date and Time Signed: 04/24/23 07:15 EST Preoperative Documentson Preoperative Documents [id number]#1.00T IFF [facility] Consent for Procedure/Surger yon 04-23-2023 Consent for Procedure/Surgery [id number]#1.00TIF F [facility] Consent for Treatmenton Consent for Treatment [id number]#1.00TIF F [facility] Discharge Instructionson Discharge Instructions ALETA CASTRO [...] been scheduled. Call for any problems. Where: [address] [place] [address] (1) Medications What How Much When Instructions Next Dose New acetaminophen-oxycodone (Percocet 5 mg-325 mg oral tablet) 1 Tablets By Mouth As Directed 1-2 po Q4-6h prn pain Dx: S83.512D Duration: 7 days Pickup at [facility]/pharmacy #2348 New aspirin (Ecotrin 325 mg Tab-EC) 1 Tablets By Mouth Every day Pickup at [facility]/pharmacy #2346 Pharmacy Information [facility]/pharmacy #2346: [address] [place], [place] [phone] Allergies Banana (Throat tightness, Hives, Vomiting) Latex (Hives, Swelling) azithromycin (Hives) midodrine (Numbness) Education Materials [place], [place] [facility] DISCHARGE INSTRUCTIONS: ANTERIOR CRUCIATE [...] concerns. ___ Myron Marroquin DO [facility] [address] [place], [place] [id number] Reviewed: 06-23 Revised: 03/29 Common Emergency Awareness [...] share your experie (more content not included)... [facility] Comment on above: Result Comment: Elec tronically Signed By: Marcelo MCQUEEN, Shyla Acevedo\.ammy\Date and Time Signed: 04/23/23 10:58 EST H&P Updateon 04-23-2023 H&P Update [id number]#1.00TIF F [facility] Main OR PACU I [facility] Main OR PACU I Record PACU Phase I Document Type FT Summary Primary Physician: Myron Marroquin DO Finalized Date/Time: 04/23/23 12:22:33 Pt. Name: ALETA CASTRO/Sex: 2000 Female Med Rec #: [id number] Physician: Myron Marroquin DO Financial #: [id number] Pt. Type: A Room/Bed: [place] [address] Admit/Disch: 04/23/23 06:25:15 - Institution: Case Times [...] Signed By: Valencia Jimenez RN 04/23/23 12:22 [facility] Main OR Preoperative Recordo n 04-23-2023 Main OR Preoperative Record PreOp Document Type FT Summary Primary Physician: Myron Marroquin DO Finalized Date/Time: 04/23/23 08:50:41 Pt. Name: MATTHEWALETA /Sex: 2000 Female Med Rec #: [id number] Physician: Myron Marroquin DO Financial #: [id number] Pt. Type: A Room/Bed: [place] [address] Admit/Disch: 04/23/23 06:25:15 - Institution: Case Times [...] Signed By: Lyle Comer RN 04/23/23 08:50 [facility] Monitor [facility] 04-23-2023 Monitor Record [id number]#1.00TI FF [facility] Operative Reporton Operative Report Patient: AILEEN CASTRO Age: 22 years Sex: Female : 2000 Associated Diagnoses: None Author: Urbano Lan ()Cyrus Procedure Nerve Block Block Type: Adductor canal [...] Using maximal sterile barrier technique per current [facility] guidelines including hand hygeine, Guidance (Ultrasound used [...] patient tolerated the procedure as expected. Normal [facility] Comment on above: Result Comment: Elec tronically Signed By: [facility] ()Cyrus\.br\Date and Time Signed: 04/23/23 07:56 EST Patient Education - Texton 0 04-23-2023 Patient Education - Text [place], [place] [facility] DISCHARGE INSTRUCTIONS: ANTERIOR CRUCIATE [...] concerns. ___ Myron Marroquin DO [facility] [address] [place] [address] Reviewed: 06-23 Revised: 03/29 [facility] Progress Note-Physicianon Progress Note-Physician Patient: ALETA [...] Daily, # 21 tab(s), Refills(s) 0, Pharmacy: [facility]/pharmacy #[id number], 165, cm, 04/04/23 6:11:00 EST, Height/Length Dosing, 78, kg, 04/04/23 6:11:00 EST, Weight Dosing Percocet 5 mg-325 mg oral tablet: 1 tab(s), Oral, As Directed, 40 tab(s), Refill(s) 0, 1-2 po Q4-6h prn pain Dx: S83.512D Duration: 7 days, [facility]/pharmacy #2345, 165, cm, 04/04/23 6:11:00 EST, Height/Length Dosing, 78, kg, 04/04/23 6:11:00 EST, Weight Dosing, Home Medications (2) Active Ecotrin 325 mg Tab-EC 325 mg = 1 tab(s), Oral, Daily Percocet 5 mg-325 mg oral tablet 1 tab(s), Oral, As Directed Problem list: All Problems H/O: hypothyroidism / SNOMED CT [id number] / Confirmed POTS (postural orthostatic tachycardia syndrome) / SNOMED CT 7343993955 / Confirmed Physical Examination Vital Signs 04/23/2023 [...] Pressure 1 (more content not included)... Normal [facility] Comment on above: Result Comment: Elec tronically Signed By: [facility] ()Cyrus\.br\Date and Time Signed: 04/23/23 11:06 EST Progress Note-Physician Patient: ALETA CASTRO Age: 22 years Sex: Female : 2000 Associated Diagnoses: None Author: Myron Marroquin DO Postoperative Information Procedure: L knee scope, ACL recon Preoperative Diagnosis: L ACL tear. Postoperative Diagnosis: same. Performed by: daniel. Licensed Physical Therapist Assistant: Roby Camacho. Specimens Removed: none. Prosthesis: Arthrex. . Estimated Blood Loss: 10 ml. Complications: None. Anesthesia type: General, block. Normal [facility] Comment on above: Result Comment: Elec tronically Signed By: Myron Marroquin DObr\Date and Time Signed: 04/23/23 10:54 EST Progress [...] Daily, # 21 tab(s), Refills(s) 0, Pharmacy: [facility]/pharmacy #[id number], 165, cm, 04/04/23 6:11:00 EST, [...] All Problems H/O: hypothyroidism / SNOMED CT 783472390 / Confirmed POTS (postural orthostatic tachycardia syndrome) / SNOMED CT 1644266368 / Confirmed, Active Problems (2) H/O: hypothyroidism POTS (postural orthostatic tachycardia syndrome) Histories Past Medical History: No active or resolved past medical history items have been selected or recorded. Family History: No family history items have been selected or recorded. Procedure history: Laparoscopic left ovarian R/o ([id number]). Ovarian cyst removal ([id number]). Social History Social & Psychosocial Habits Alcohol [...] U beta hCG Ql Negative . Plan [employer] Anesthesiologists (ASA) physical status classification: Class II. Anesthetic Preoperative Plan: Anesthesia General. Regional Adductor Canal Block Left. Normal [facility] Comment on above: Result Comment: Elec tronically Signed By: [facility] ()Cyrus\.br\Date and Time Signed: 04/23/23 07:41 EST U BetaHcg Qualon 04-23-2023 HCG.beta subunit (U) [Moles/Vol] Negative Normal [facility] Comment on above: Performed By: #### 2 [id number] ####[facility] [address] [place] [address] Consent for Procedure/Surger yon 04-16-2023 Consent for Procedure/Surgery [id number] F Normal [facility] CBC w/ Auto Diffon 4 Basophil Absolute 0.0 E9/L Normal 0.0-0.2 [facility] Comment on above: Performed By: #### 2 [id number] ####[facility] [address] [address] Basophils/100 WBC (Bld) 0.4 % Normal 0.0-2.0 [facility] Comment on above: Performed By: #### 2 662273 ####[address] [address] Eos Absolute 0.1 E9/L Normal 0.0-0.5 [facility] Comment on above: Performed By: #### 2 758259 ####[address] [address] Eosinophils/100 WBC (Bld) 1.0 % Normal 0.0-8.0 [facility] Comment on above: Performed By: #### 2 526140 ####[address] [address] Erythrocyte distribution width (RBC) [Ratio] 12.6 % Normal 10.9-14.2 [facility] Comment on above: Performed By: #### 2 569840 ####[address] [address] Hematocrit (Bld) [Volume fraction] 39.0 % Normal 34.0-46.0 [facility] Comment on above: Performed By: #### 2 425748 ####[address] [address] Hemoglobin (Bld) [Mass/Vol] 13.1 g/dL Normal 12.0-16.0 [facility] Comment on above: Performed By: #### 2 831652 ####[address] [address] Lymph Absolute 1.4 E9/L Normal 1.0-4.0 [facility] Comment on above: Performed By: #### 2 764024 ####[address] [address] Lymphocytes/100 WBC (Bld) 22.2 % Normal 14.0-50.0 [facility] Comment on above: Performed By: #### 2 965586 ####[address] [address] MCH (RBC) [Entitic mass] 30.6 pg Normal 27.0-34.0 [facility] Comment on above: Performed By: #### 2 000545 ####[address] [address] MCHC (RBC) [Mass/Vol] 33.7 g/dL Normal 31.4-36.0 [facility] Comment on above: Performed By: #### 2 340130 ####[address] [address] MCV (RBC) [Entitic vol] 91.0 fL Normal 80.0-100.0 [facility] Comment on above: Performed By: #### 2 650414 ####[address] [address] Redwood Absolute 0.4 E9/L Normal 0.2-1.0 [facility] Comment on above: Performed By: #### 2 843573 ####[address] [address] Monocytes/100 WBC (Bld) 5.6 % Normal 4.0-14.0 [facility] Comment on above: Performed By: #### 2 070976 ####[address] [address] Neutro Absolute 4.6 E9/L Normal 2.0-7.5 [facility] Comment on above: Performed By: #### 2 468990 ####[address] [address] Neutro Auto 70.8 % Normal 36.0-75.0 [facility] Comment on above: Performed By: #### 2 019673 ####[address] [address] Platelet 312.0 E9/L Normal 150.0-500.0 [facility] Comment on above: Performed By: #### 2 958525 ####[address] [place] [address] Platelet mean volume (Bld) [Entitic vol] 7.7 fL Normal 6.4-10.8 [facility] Comment on above: Performed By: #### 2 154873 ####[facility] [address] [place] [address] RBC 4.3 E12/L Normal 4.3-5.9 [facility] Comment on above: Performed By: #### 2 895833 ####[facility] [address] [place] [address] WBC 6.5 E9/L Normal 4.0-11.0 [facility] Comment on above: Performed By: #### 2 678927 ####[facility] [address] [place] [address] Consent for Treatmenton 03-18 Consent for Treatment [id number]#1.00TIF F Normal [facility] HEMATOLOGYOrdered By: SYSTEM SYSTEM on 04-03-2023 [...] Normal 80.0 - 100.0 fL Remisol Heme Redwood Absolute 0.4 E9/L Normal 0.2 - 1.0 [...] (COVID-19) RNA QUEENIE+probe Ql (Unsp spec) Negative [employer] Other COVID/FLU/RSV RT-PCR Negative [facility] [employer] Other Quick Strepon 04-01-2023 S. pyogenes Org specific cx Ql (Throat) Negative [employer] Other [employer] Strep [employer] Other [place] Gallbladderon 07-23-2022 US Gallbladder Clinical [...] upper quadrant. Report reported and signed by Corneliuscamden Hernandez on 07/23/2022 1043 Normal [facility] [employer] PAP ACOG PANEL 2: 21 to 29on 05-09-2022 . . Normal [facility] Comment on above: Performed By: #### 4 653447 #### [facility] [address] [address] [address] Yovanny Villegas Age Gdln ACOG Testing - Normal [facility] Comment on above: Performed By: #### 4 942937 #### [facility] [address] [address] [address] Yovanny Villegas DIAGNOSIS: Comment [facility] Comment on above: Result Comment: NEGA TIVE FOR INTRAEPITHELIAL LESION OR MALIGNANCY. Performed By: #### 4 188276 #### [facility] [address] [place] [address] Dr. Yovanny Villegas Methodology: Comment [facility] Comment on above: Result Comment: This liquid based ThinPrep(R) pap test was screened with the use of an image guided system. Performed By: #### 4 787486 #### [facility] [address] [place] [address] Dr. Yovanny Villegas Note: Comment [facility] Comment on above: Result Comment: The Pap smear is a screening test designed to aid in the detection of premalignant and malignant conditions of the uterine cervix. It is not a diagnostic procedure and should not be used as the sole means of detecting cervical cancer. Both false-positive and false-negative reports do occur. . Performed By: #### 4 651366 #### [facility] [address] [address] [address] Yovanny Villegas Performed by: Comment Normal [facility] Comment on above: Result Comment: Yanira Navarrete, Marketing Research Intern (ASCP) Performed By: #### 4 985868 #### [facility] [address] [address] [address] Yovanny Villegas Reflex Criteria: Comment [facility] Comment on above: Result Comment: The HPV DNA reflex criteria were not met with this specimen result therefore, no HPV testing was performed. . Performed By: #### 4 088602 #### [facility] [address] [place] [address] Dr. Yovanny Villegas Specimen adequacy: Comment Normal [facility] Comment on above: Result Comment: Sati sfactory for evaluation. Endocervical and/or squamous metaplastic cells (endocervical component) are present. Performed By: #### 4 941441 #### [facility] [address] [place] [address] Dr. Yovanny Villegas CHLAMYDIA/GONOCOCCUS QUEENIE ( AB/URINE/PAPon 07-28-2021 Chlamydia trachomatis, QUEENIE Negative Normal Negative [facility] Comment on above: Performed By: #### C T/NGNA #### [facility] [address] [place] [address] Dr. Yovanny Villegas Neisseria gonorrhoeae, QUEENIE Negative Normal Negative [facility] Comment on above: Performed By: #### C T/NGNA #### [facility] [address] [place] [address] Dr. Yovanny Villegas VAGINITIS/VAGINOSIS DNA PROB Anders 07-27-2021 Rickey species Negative Normal Negative [facility] Comment on above: Performed By: #### V AGINT #### [facility] [address] [place] [address] Dr. Yovanny Villegas Gardnerella vaginalis Negative Normal Negative [facility] Comment on above: Performed By: #### V AGINT #### [facility] [address] [place] [address] Dr. Yovanny Villegas Trichomonas vaginalis Negative Normal Negative [facility] Comment on above: Performed By: #### V AGINT #### [facility] [address] [place] [address] Dr. Yovanny Villegas XR KNEE LEFT (3 [...] Deshaun Aguilar MD 05/24/21 Final result Normal [facility] No fracture or dislocation. [facility] EXAMINATION: THREE XRAY VIEWS OF THE LEFT KNEE 05/24/2021 8:48 pm COMPARISON: None. HISTORY: ORDERING SYSTEM PROVIDED HISTORY: pain eval occult bony injury TECHNOLOGIST PROVIDED HISTORY: pain eval occult bony injury FINDINGS: No fracture, dislocation, or focal osseous lesion is noted. No significant soft tissue abnormality seen. [facility] Deshaun Aguilar MD - 05/24/2021 EXAMINATION: THREE XRAY VIEWS OF THE LEFT KNEE 05/24/2021 8:48 pm COMPARISON: None. HISTORY: ORDERING SYSTEM PROVIDED HISTORY: pain eval occult bony injury TECHNOLOGIST PROVIDED HISTORY: pain eval occult bony injury FINDINGS: No fracture, dislocation, or focal osseous lesion is noted. No significant soft tissue abnormality seen. IMPRESSION: No fracture or dislocation. [employer] Phone: Radiology Study observation (narrative) [employer] Phone: XR KNEE LEFT (3 VIEWS)Ordere d By: Deshaun Aguilar on 05-24-2021 [employer] Phone: COVID Quick Testingon 2021 Result Negative [employer] Other Quick Strepon 05-01-2021 S. pyogenes Org specific cx Ql (Throat) Positive [employer] Other Quick Strep [employer] Other COVID Quick Testingon 2021 Result Negative [employer] Other Quick Fluon 04-07-2021 FLUAV Ab CF (S) [Titer] Negative [employer] Other FLUBV Ab CF (S) [Titer] Negative [employer] Other XR SACRUM COCCYX (MIN 2 VIEW S)on 12-14-2020 XR SACRUM COCCYX (MIN 2 VIEWS) EXAMINATION: THREE XRAY VIEWS OF THE SACRUM/COCCYX 12/14/2020 3:10 am COMPARISON: None. HISTORY: ORDERING SYSTEM PROVIDED HISTORY: fall at work - hit [id number] TECHNOLOGIST PROVIDED HISTORY: fall at work - hit [id number] FINDINGS: The sacroiliac joints are normally aligned. The visualized portions the pelvis are. There is no fracture of the sacrum or coccyx evident. IMPRESSION: No acute osseous abnormality of the sacrum or coccyx evident. Interpreted by: Loc Oswald MD Signed by: Loc Oswald MD 12/14/20 Final result Normal [facility] XR SACRUM COCCYX (MIN 2 VIEW S)Ordered By: David Dominguez on 12-14-2020 No acute osseous abnormality of the sacrum or coccyx evident. [employer] Phone: EXAMINATION: THREE X RAY VIEWS OF THE SACRUM/COCCYX 12/14/2020 3:10 am COMPARISON: None. HISTORY: ORDERING SYSTEM PROVIDED HISTORY: fall at work - hit [id number] TECHNOLOGIST PROVIDED HISTORY: fall at work - hit [id number] FINDINGS: The sacroiliac joints are normally aligned. The visualized portions the pelvis are. There is no fracture of the sacrum or coccyx evident. [employer] Phone: Cuauhtemoc, pn Incoming Radiant Results From [employer] - 12/14/2020 3:24 AM EDT EXAMINATION: THREE XRAY VIEWS OF THE SACRUM/COCCYX 12/14/2020 3:10 am COMPARISON: None. HISTORY: ORDERING SYSTEM PROVIDED HISTORY: fall at work - hit [id number] TECHNOLOGIST PROVIDED HISTORY: fall at work - hit [id number] FINDINGS: The sacroiliac joints are normally aligned. The visualized portions the pelvis are. There is no fracture of the sacrum or coccyx evident. IMPRESSION: No acute osseous abnormality of the sacrum or coccyx evident. [employer] Phone: [employer] Phone: CT HEAD WO CONTRASTon 2020 CT [...] Maira Cruz MD 09/19/20 Final result Normal [facility] CT Head WO ContrastOrdered B y: Luis Carlos Fragoso on 09-19-[address] examination of the brain. [employer] Phone: EXAMINATION: CT OF T HE HEAD [...] of the visualized skull or soft tissues. [employer] Phone: Cuauhtemoc, Mhpn Incoming Radiant Results From [facility] - 09/19/2020 4:42 PM EDT EXAMINATION: CT [...] Unremarkable noncontrast CT examination of the brain. [facility]TM[facility] by [employer] Work Phone: [facility](TM) by [employer] Work Phone: Coding Summaryon 10-27-2019 Coding Summary CODING DATE: 020 [facility] STATUS: Home PAYOR: [facility] ADMIT DX: REASON FOR VISIT DX: [...] Pablo Date Saved: 10/27/2019 03:10 pm Normal [facility] 2019 Novel Coronavirus (CoVI D-19), QUEENIE LCon 10-26-2019 SARS-CoV-2, QUEENIE (COVID-19) LC Not Detected Not Detected [facility] Comment on above: Order Comment: [id number] 1 Result Comment: This test was developed and its performance characteristics determined by [employer]. This test has not been FDA cleared [...] detected) result in this assay. Performed At: [facility] [address] [facility] [place] [id number] Ruba Washburn MD Ph:[phone] Performed By: #### 6 [id number] #### [facility] (DEFAULT) [address] [place] [address] Consent Formson 10-26-2019 Consent Forms [id number] TIFF Normal [facility] CNCOon 07-15-2017 CNCO Letter TextToll Free : [phone] [facility] - [address] [address]Oelbd: [phone]: [facility] [place], [place] [address]Pzauk: [phone]: [address] [place], [place] [address]Wlaem: [phone]: Steve Pablo M.D., Jonna Castro M.D.Timothy J Adamowicz, D.O..Carin Hoover M.D. FACROSaju A. Refugio, M.D.Date: July 15, 2017Re: Aleta Elliott WHOM IT MAY CONCERN:She was seen in our office today.Sincerely,Katelin Cardona PSR(signed electronically to expedite mailing) Normal [facility] CNOVSPon 07-15-2017 CNOVSP Visit (SP) Office (HEMACL) SYEDA GARAY JANESSA ([id number]) 89 FDate Time Provider Department07/15/17 3:15 PM [...] well-hydrated,well nourishedNeuro: Gait normal.Collected: 05/15/17 1043Resulting lab: [facility] LABORATORYValue: (NOTE)Comment: Performing Pathologist: Jo-Ann [...] list. no changes .Referring Provider: DAVID BECERRIL [[id number]]Allergies As of Date: 07/15/2017(No Known Allergies)Date Reviewed: [...] BECERRIL MD on 07/17/17 Normal [facility] PROGRESSon 07-15-2017 PROGRESS HNO ID: [id number]: David LylessService: (none)Author Type: PhysicianType: Progress NotesFiled: [...] well nourishedNeuro: Gait normal.Collected: 05/15/17 1043Resulting lab: [facility] MAIN LABORATORYValue: (NOTE)Comment: Performing Pathologist: Jo-Ann [...] further testingAljarred Becerril MD Normal [facility] Platelet Func Scrnon 018 COL/ADP Cartridge 85 CT (sec) Normal <118 [facility] Comment on above: Result Comment: Resu lts are reported as Closure Time (CT) in seconds. Performed By: #### P LTSCP ####[facility] [address]CNew [place], [place] [phone] COL/EPI Cartridge 105 CT (sec) Normal <199 [facility] Comment on above: Result Comment: Resu lts are reported as Closure Time (CT) in seconds. Performed By: #### P LTSCP ####[facility]CNew [place], [place] [phone] Plt Func Scr Interp (NOTE) Normal [facility] Comment on above: Result Comment: Perf [...] bleeding disorder. Performed By: #### P LTSCP ####[facility] [address]un[address]ngqvpcp[address] AveCNew [place], [place] [phone] Remote CBCDIF (for [facility] use o nly)on 05-15-2017 Abs Baso <0.03 Normal <0.11 [facility] Comment on above: Performed By: #### R CBCDF ####[facility] Hcjnnvmruhmm[address] AveCNew [place], [place] [phone] Abs Redwood 0.53 k/uL Normal <0.87 [facility] Comment on above: Performed By: #### R CBCDF ####[address] [address] [address] [place], [place] [phone] Abs Neut 2.59 k/uL Normal 1.45-7.50 [facility] Comment on above: Performed By: #### R CBCDF ####[address] [address] [address] Av[address], [place] [phone] Basophils/100 WBC Auto (Bld) 0.4 % Normal [facility] Comment on above: Performed By: #### R CBCDF ####[address] [phone] DTYPE Auto Diff Normal [facility] Comment on above: Performed By: #### R CBCDF ####[address] [address] [address] [phone] Eosinophils 0.07 10*3/uL Normal <0.46 [facility] Comment on above: Performed By: #### R CBCDF ####[address] [address] [address], [place] [phone] Eosinophils/100 leukocytes 1.5 % Normal [facility] Comment on above: Performed By: #### R CBCDF ####[address] [address] [place], [place] [phone] Erythrocyte distribution width Auto Ratio (RBC) 12.2 % Normal 11.5-15.0 [facility] Comment on above: Performed By: #### R CBCDF ####[address] [address] [address], [place] [phone] Erythrocytes (RBC) 4.15 10*6/uL Normal 3.90-5.20 [facility] Comment on above: Performed By: #### R CBCDF ####[address] [address] [address], [place] [phone] Erythrocytes (RBC) 0.0 /100 WBC Normal 0 [facility] Comment on above: Performed By: #### R CBCDF ####[address] [address] [address] AvMireilleNew [place], [place] [phone] Erythrocytes (RBC) 10*6/uL Normal <0.01 [facility] Comment on above: Performed By: #### R CBCDF ####[address] [address] [address] [phone] Hematocrit (HCT) 39.4 % Normal 36.0-46.0 [facility] Comment on above: Performed By: #### R CBCDF ####[address] [address] [address], [place] [phone] Hemoglobin mass conc (Bld) 12.8 g/dL Normal 11.5-15.5 [facility] Comment on above: Performed By: #### R CBCDF ####[address] [address] [address] [phone] Lymphocytes 1.37 10*3/uL Normal 1.00-4.00 [facility] Comment on above: Performed By: #### R CBCDF ####[address] [address] [address] [phone] Lymphocytes/100 leukocytes 29.9 % Normal [facility] Comment on above: Performed By: #### R CBCDF ####[address] [address] [address], [place] [phone] MCH 30.8 pG Normal 26.0-34.0 [facility] Comment on above: Performed By: #### R CBCDF ####[address] [address] [place], [place] [phone] MCHC mass conc (RBC) 32.5 g/dL Normal 30.5-36.0 [facility] Comment on above: Performed By: #### R CBCDF ####[address] [address] [address] [phone] MCV 94.9 fL Normal 80.0-100.0 [facility] Comment on above: Performed By: #### R CBCDF ####[facility] [place], [place] [phone] Monocytes/100 leukocytes 11.6 % Normal [facility] Comment on above: Performed By: #### R CBCDF ####[facility] [place], [place] [phone] Neutrophils/100 WBC Auto (Bld) 56.6 % Normal [facility] Comment on above: Performed By: #### R CBCDF ####[address] [phone] Platelet mean volume (PMV) 10.2 fL Normal 9.0-12.7 [facility] Comment on above: Performed By: #### R CBCDF ####[address] [phone] Platelets 229 10*3/uL Normal 150-400 [facility] Comment on above: Performed By: #### R CBCDF ####[facility] [place], [place] [phone] WBC (Leukocytes) 4.58 10*3/uL Normal 3.70-11.00 [facility] Comment on above: Performed By: #### R CBCDF ####[address] [phone] CNCOon 04-29-2017 CNCO Letter TextToll Free : [phone] [facility] [address] [place], [place] [address]Syctf: [phone]: [facility] [place] [place], [place] [address]Hqeim: [phone]: [facility]k[address] [place], [place] [address]Gqphp: [phone]: Steve Pablo M.D., Ronaldo Marquez M.D.David Becerril M.D.Papito Sood D.O..Carin Hoover M.D. FACROSaju A. Rajan, M.D.Date: April 29, 2017Re: Aleta Elliott WHOM IT MAY CONCERN:She was seen in our office today.Sincerely,Karly Pizarro Psr(signed electronically to expedite mailing) Normal [facility] CNOVSPon 04-29-2017 CNOVSP Visit (SP) Office (HEMACL) SYEDA GARAY JANESSA ([id number]) [address] [facility] Time Provider Department04/29/17 2:30 PM DAVID BECERRIL [...] patientand her mother at length. Would check [id number] at this time, further testingbased on results.1. 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 Would check [id number] at this time, furthertesting based on results.1. 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, choice of management likely to be influenced by history ofPOTSAlfred Sandeep Becerril MD Normal [facility] Vital Signs Date Time Vital Sign Value Performing Clinician Facility 12-23-2024 13:57-0400 Body mass index (BMI) [Ratio] 29.42 kg/m2 Luna Steen [employer]FFY [employer] Work Phone: [facility] 12-23-2024 13:57-0400 Body weight 77.75 kg Luna Steen [employer] Work Phone: [facility] 12-23-2024 13:57-0400 Diastolic blood pressure 70 mm[Hg] Luna Steen [employer] Work Phone: [facility] 12-23-2024 13:57-0400 Systolic blood pressure 110 mm[Hg] Luna Steen TAFFY CANDY MAKER Work Phone: [facility] 12-09-2024 14:07-0400 Body mass index (BMI) [Ratio] 28.84 kg/m2 Doc William DO Work Phone: [facility] 12-09-2024 14:07-0400 Body weight 76.2 kg Doc William DO Work Phone: [facility] 12-09-2024 14:07-0400 Diastolic blood pressure 74 mm[Hg] Doc William DO Work Phone: [facility] 12-09-2024 14:07-0400 Systolic blood pressure 110 mm[Hg] Doc William DO Work Phone: [facility] 11-25-2024 14:04-0400 Body mass index (BMI) [Ratio] 29.95 kg/m2 Luna Enio TAFFY CANDY MAKER Work Phone: [facility] 11-25-2024 14:04-0400 Body weight 79.15 kg Luna Enio TAFFY CANDY MAKER Work Phone: [facility] 11-25-2024 14:04-0400 Diastolic blood pressure 60 mm[Hg] Luna Enio TAFFY CANDY MAKER Work Phone: [facility] 11-25-2024 14:04-0400 Systolic blood pressure 110 mm[Hg] Luna Enio TAFFY CANDY MAKER Work Phone: [facility] 10-28-2024 14:39-0400 Body mass index (BMI) [Ratio] 28.49 kg/m2 Pretty Dm PA Work Phone: [facility] 10-28-2024 14:39-0400 Body weight 75.3 kg Pretty Athens PA Work Phone: [facility] 10-28-2024 14:39-0400 Diastolic blood pressure 80 mm[Hg] Pretty Dm PA Work Phone: [facility] 10-28-2024 14:39-0400 Systolic blood pressure 130 mm[Hg] Pretty Athens PA Work Phone: [facility] 09-30-2024 15:34-0400 Body mass index (BMI) [Ratio] 28.29 kg/m2 Doc William DO Work Phone: [facility] 09-30-2024 15:34-0400 Body weight 74.75 kg Doc William DO Work Phone: [facility] 09-30-2024 15:34-0400 Diastolic blood pressure 72 mm[Hg] Doc William DO Work Phone: [facility] 09-30-2024 15:34-0400 Systolic blood pressure 110 mm[Hg] Doc William DO Work Phone: [facility] 08-05-2024 14:27-0400 Body mass index (BMI) [Ratio] 30.21 kg/m2 Doc William DO Work Phone: [facility] 08-05-2024 14:27-0400 Body weight 79.83 kg Doc William DO Work Phone: [facility] 08-05-2024 14:27-0400 Diastolic blood pressure 76 mm[Hg] Doc William DO Work Phone: [facility] 08-05-2024 14:27-0400 Systolic blood pressure 110 mm[Hg] Doc William DO Work Phone: [facility] 02-26-2024 15:41-0500 Body height 162.6 cm Myron Pocos DO Work Phone: [facility] 02-26-2024 15:41-0500 Body mass index (BMI) [Ratio] 30.21 kg/m2 Myron Pocos DO Work Phone: [facility] 02-26-2024 15:41-0500 Body weight 79.83 kg Myron Pocos DO Work Phone: [facility] 02-19-2024 15:26-0500 Body height 162.6 cm Rosalie Payne MD Work Phone: [facility] 02-19-2024 15:26-0500 Body mass index (BMI) [Ratio] 30.21 kg/m2 Rosalie Payne MD Work Phone: [facility] 02-19-2024 15:26-0500 Body weight 79.83 kg Rosalie Payne MD Work Phone: [facility] 02-19-2024 15:26-0500 Heart rate 88 /min Rosalie Payne MD Work Phone: [facility] 02-19-2024 15:26-0500 SaO2% (BldA) [Mass fraction] 98 % Rosalie Payne MD Work Phone: [facility] 12-09-2023 08:00-0400 Body height 162.6 cm Kelvin Schwartz DO Work Phone: [facility] 12-09-2023 08:00-0400 Body mass index (BMI) [Ratio] 30.9 kg/m2 Kelvin Schwartz DO Work Phone: [facility] 12-09-2023 08:00-0400 Body weight 81.65 kg Kelvin Schwartz DO Work Phone: [facility] 09-02-2023 14:25-0400 Diastolic blood pressure 73 mm[Hg] MD Rosalie Payne Work Phone: [facility] 09-02-2023 14:25-0400 Heart rate 80 /min MD Rosalie Payne Work Phone: [facility] 09-02-2023 14:25-0400 Respiratory rate 18 /min MD Rosalie Pyane Work Phone: [facility] 09-02-2023 14:25-0400 SaO2% (BldA) [Mass fraction] 100 % MD Rosalie Payne Work Phone: [facility] 09-02-2023 14:25-0400 Systolic blood pressure 122 mm[Hg] MD Rosalie Payne Work Phone: [facility] 09-02-2023 11:31-0400 Body height 165.1 cm MD Rosalie Payne Work Phone: [facility] 09-02-2023 11:31-0400 Body temperature 98.4 [degF] MD Rosalie Payne Work Phone: [facility] 09-02-2023 11:31-0400 Body weight 77.11 kg MD Rosalie Payne Work Phone: [facility] 07-25-2023 14:21-0400 Body height 165.1 cm [facility] 07-25-2023 14:21-0400 Body mass index (BMI) [Ratio] 28.3 kg/m2 [facility] 07-25-2023 14:21-0400 Body weight 77.11 kg [facility] 07-25-2023 14:21-0400 Diastolic blood pressure 72 mm[Hg] [facility] 07-25-2023 14:21-0400 Heart rate 81 /min [facility] 07-25-2023 14:21-0400 Systolic blood pressure 111 mm[Hg] [facility] 04-03-2023 14:55-0500 Diastolic blood pressure 87 mm[Hg] Myron Pocos [facility] 04-03-2023 14:55-0500 Heart rate 105 /min Myron Pocos [facility] 04-03-2023 14:55-0500 Mean blood pressure 103 mm[Hg] Myron Pocos [facility] 04-03-2023 14:55-0500 Systolic blood pressure 136 mm[Hg] Myron Pocos [facility] 04-03-2023 14:53-0500 Heart rate 98 /min Myron Pocos [facility] 04-03-2023 14:53-0500 SaO2% (BldA) [Mass fraction] 99 % Myron Pocos [facility] 04-03-2023 14:53-0500 Diastolic blood pressure 96 mm[Hg] Myron Pocos [facility] 04-03-2023 14:53-0500 Mean blood pressure 112 mm[Hg] Myron Pocos [facility] 04-03-2023 14:53-0500 Systolic blood pressure 145 mm[Hg] Myron Pocos [facility] 04-03-2023 14:52-0500 Respiratory rate 16 /min Myron Marroquin [facility] 04-01-2023 10:45-0500 Body height 165.1 cm Destinee Kristine Other [facility] Other 04-01-2023 10:45-0500 Body mass index (BMI) [Ratio] 28.29 kg/m2 Destinee Kristine Other [facility] Other 04-01-2023 10:45-0500 Body temperature 98.1 [degF] Destinee Kristine Other [facility] Other 04-01-2023 10:45-0500 Body weight 77.11 kg Destinee Kristine Other [facility] Other 04-01-2023 10:45-0500 Respiratory rate 18 /min Destinee Kristine Other [facility] Other 04-01-2023 10:45-0500 SaO2% (BldA) [Mass fraction] 99 % Destinee Kristine Other [facility] Other 08-21-2021 11:25-0400 Body height 165.1 cm Carlie Thomas Other [facility] Other 08-21-2021 11:25-0400 Body mass index (BMI) [Ratio] 27.12 kg/m2 Carlie Thomas Other [facility] Other 08-21-2021 11:25-0400 Body temperature 98.6 [degF] Carlie Thomas Other [facility] Other 08-21-2021 11:25-0400 Body weight 73.94 kg Carlie Thomas Other [facility] Other 08-21-2021 11:25-0400 Respiratory rate 18 /min Carlie Thomas Other [facility] Other 08-21-2021 11:25-0400 SaO2% (BldA) [Mass fraction] 97 % Carlie Thomas Other [facility] Other 05-24-2021 20:36-0500 Body temperature 97.7 [degF] Artis VirtualUttan DO Work Phone: [facility] 05-24-2021 20:36-0500 Diastolic blood pressure 81 mm[Hg] Artis VirtualUttan DO Work Phone: [facility] 05-24-2021 20:36-0500 Heart rate 101 /min Artis VirtualUttan DO Work Phone: [facility] 05-24-2021 20:36-0500 Respiratory rate 16 /min Artis VirtualUttan DO Work Phone: [facility] 05-24-2021 20:36-0500 SaO2% (BldA) [Mass fraction] 97 % Artis Bike HUDan DO Work Phone: [facility] 05-24-2021 20:36-0500 Systolic blood pressure 131 mm[Hg] Artis VirtualUttan DO Work Phone: [facility] 05-11-2021 13:10-0500 Body height 165.1 cm Adriana Evangelista Other [facility] Other 05-11-2021 13:10-0500 Body mass index (BMI) [Ratio] 27.12 kg/m2 Adriana Evangelista Other [facility] Other 05-11-2021 13:10-0500 Body temperature 97.8 [degF] Adriana Evangelista Other [facility] Other 05-11-2021 13:10-0500 Body weight 73.94 kg Adriana Evangelista Other [facility] Other 05-11-2021 13:10-0500 Diastolic blood pressure 90 mm[Hg] Adriana Evangelista Other [facility] Other 05-11-2021 13:10-0500 Respiratory rate 18 /min Adriana Evangelista Other [facility] Other 05-11-2021 13:10-0500 SaO2% (BldA) [Mass fraction] 99 % Adriana Evangelista Other [facility] Other 05-11-2021 13:10-0500 Systolic blood pressure 129 mm[Hg] Adriana Evangelista Other [facility] Other 05-01-2021 11:40-0500 Body height 165.1 cm Carlie Lewismond Other [facility] Other 05-01-2021 11:40-0500 Body mass index (BMI) [Ratio] 26.62 kg/m2 Carlie Martha Other [facility] Other 05-01-2021 11:40-0500 Body temperature 98.6 [degF] Carlie Martha Other [facility] Other 05-01-2021 11:40-0500 Body weight 72.58 kg Carlie Martha Other [facility] Other 05-01-2021 11:40-0500 Respiratory rate 18 /min Carlie Thomas Other [facility] Other 05-01-2021 11:40-0500 SaO2% (BldA) [Mass fraction] 99 % Carlie Thomas Other [facility] Other 04-07-2021 12:00-0500 Body height 165.1 cm Sandeep Ramirez Other [facility] Other 04-07-2021 12:00-0500 Body mass index (BMI) [Ratio] 26.62 kg/m2 Sandeep Ramirez Other [facility] Other 04-07-2021 12:00-0500 Body temperature 97.6 [degF] Sandeep Raimrez Other [facility] Other 04-07-2021 12:00-0500 Body weight 72.58 kg Sandeep Ramirez Other [facility] Other 04-07-2021 12:00-0500 SaO2% (BldA) [Mass fraction] 98 % Sandeep Ramirez Other [facility] Other 12-13-2020 23:25-0400 Diastolic blood pressure 89 mm[Hg] David Dominguez MD Work Phone: [facility] Work Phone: 12-13-2020 23:25-0400 Systolic blood pressure 141 mm[Hg] David Dominguez MD Work Phone: [facility] Work Phone: 12-13-2020 23:23-0400 Body height 165.1 cm David Dominguez MD Work Phone: [facility] Work Phone: 12-13-2020 23:23-0400 Body mass index (BMI) [Ratio] 26.63 kg/m2 David Dominguez MD Work Phone: [facility] Work Phone: 12-13-2020 23:23-0400 Body temperature 98.29 [degF] David Dominguez MD Work Phone: [facility] Work Phone: 12-13-2020 23:23-0400 Body weight 72.58 kg David Dominguez MD Work Phone: [facility] Work Phone: 12-13-2020 23:23-0400 Heart rate 79 /min David Dominguez MD Work Phone: [facility] Work Phone: 12-13-2020 23:23-0400 Respiratory rate 14 /min David Dominguez MD Work Phone: [facility] Work Phone: 12-13-2020 23:23-0400 SaO2% (BldA) [Mass fraction] 99 % David Dominguez MD Work Phone: [facility] Work Phone: 09-19-2020 15:56-0400 Body temperature 98.6 [degF] [facility] Work Phone: 09-19-2020 15:56-0400 Diastolic blood pressure 90 mm[Hg] [facility] Work Phone: 09-19-2020 15:56-0400 Heart rate 103 /min [facility] Work Phone: 09-19-2020 15:56-0400 Respiratory rate 16 /min [facility] Work Phone: 09-19-2020 15:56-0400 SaO2% (BldA) [Mass fraction] 100 % [facility] Work Phone: 09-19-2020 15:56-0400 Systolic blood pressure 139 mm[Hg] [facility] Work Phone: Encounters Encounter Date Encounter Type Care Provider Facility Start: 12-23-2024 End: 12-23-2024 Bamboo flowsheet Luna Steen TAFFY CANDY MAKER Work Phone: [facility] Start: 12-23-2024 End: 12-23-2024 Bamboo flowsheet Luna Enio TAFFY CANDY MAKER Work Phone: [facility] Start: 12-23-2024 End: 12-23-2024 flow sheet Luna Enio TAFFY CANDY MAKER Work Phone: [facility] Comment on above: Third trimester preg shakila ([facility]); 31 weeks gestation of ([facility]) Start: 12-23-2024 End: 12-23-2024 ambulatory LUNA STEEN Not Available Start: 12-09-2024 End: 12-09-2024 Bamboo flowsheet Doc William DO Work Phone: [facility] Start: 12-09-2024 End: 12-09-2024 Bamboo flowsheet Doc William DO Work Phone: [facility] Start: 12-09-2024 End: 12-09-2024 flow sheet Doc William DO Work Phone: [facility] Comment on above: Third trimester preg shakila ([facility]); 29 weeks gestation of ([facility]); Yeast infection Start: 12-09-2024 End: 12-09-2024 ambulatory DOC WILLIAM Not Available Start: 11-27-2024 End: 11-27-2024 ambulatory [facility] Start: 11-25-2024 End: 11-25-2024 Bamboo flowsheet Luna Steen TAFFY CANDY MAKER Work Phone: [facility] Start: 11-25-2024 End: 11-25-2024 Bamboo flowsheet Luna Steen TAFFY CANDY MAKER Work Phone: [facility] Start: 11-25-2024 End: 11-25-2024 flow sheet Luna Steen TAFFY CANDY MAKER Work Phone: [facility] Comment on above: Second trimester pre gnancy ([facility]); 27 weeks gestation of ([facility]); 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 End: 11-25-2024 ambulatory LUNA STEEN Not Available Start: 11-24-2024 End: 11-24-2024 Clinisync Result Encounter Generic External Data Provider [facility] Unsolicited Start: 11-24-2024 End: 11-24-2024 Clinisync Result Encounter Generic External Data Provider [facility] Unsolicited Start: 11-12-2024 End: 11-13-2024 Clinisync Result Encounter Generic External Data Provider [facility] External [facility] Unsolicited Start: 11-12-2024 End: 11-13-2024 Clinisync Result Encounter Generic External Data Provider [...] Comment on above: Second trimester pre gnancy ([facility]); 23 weeks gestation of ([facility]); Diabetes mellitus screening; STD exposure; Well woman exam with routine gynecological exam; Heart palpitations Start: 10-28-2024 End: 10-28-2024 ambulatory PRETTY CHAIDEZ Not Available Start: 10-28-2024 End: 10-28-2024 Bamboo flowsheet Pretty ARELLANO Work Phone: [facility] Start: 10-28-2024 End: 11-03-2024 Bamboo flowsheet Pretty ARELLANO Work Phone: [facility] Start: 10-28-2024 End: 11-03-2024 Clinisync Result Encounter Generic External Data Provider [facility] External Department Unsolicited Start: 10-28-2024 End: 10-30-2024 External Result Encounter Lunaselene Steen TAFFY CANDY MAKER Work Phone: [facility]solicited Start: 10-06-2024 End: 10-06-2024 Clinisync Result Encounter Doc William DO Work Phone: [facility]solicited Start: 10-06-2024 End: 10-06-2024 Clinisync Result Encounter Doc William DO Work Phone: [facility]solicited Start: 09-30-2024 End: 09-30-2024 flow sheet Doc William DO Work Phone: [facility] Comment on above: 19 weeks gestation o f ([facility]); Second trimester ([facility]) Start: 09-30-2024 End: 09-30-2024 ambulatory DOC WILLIAM Not Available Start: 09-28-2024 End: 09-28-2024 Clinisync Result Encounter Generic External Data Provider [facility] Unsolicited Start: 09-28-2024 End: 09-28-2024 Clinisync Result Encounter Generic External Data Provider [facility] External [facility] Unsolicited Start: 09-02-2024 End: 09-02-2024 flow sheet Pretty ARELLANO Work Phone: [facility] Comment on above: Second trimester pre gnancy ([facility]); 15 weeks gestation of ([facility]); Screening, , for anatomic survey ([facility]) Start: 09-02-2024 End: 09-02-2024 ambulatory PRETTY CHAIDEZ Not Available Start: 09-02-2024 End: 09-02-2024 Bamboo flowsheet Pretty Chaidez PA Work Phone: [facility] Start: 09-02-2024 End: 09-02-2024 Bamboo flowsheet Pretty Chaidez PA Work Phone: [facility] Start: 08-31-2024 [...] 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 ; 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[facility]) Start: 08-05-2024 End: 08-05-2024 ambulatory DOC WILLIAM [...] 100 Start: 12-27-2023 End: 12-27-2023 ambulatory Pepe Kirby PT Work Phone: [facility] Comment on above: Acute pain of left k nee (Primary Dx); Status post arthroscopic reconstruction of anterior cruciate ligament of left knee using quadriceps tendon autograft Start: 12-27-2023 End: 12-27-2023 Bamboo flowsheet Pepe Kirby PT Work Phone: [facility] Start: 12-27-2023 End: 12-27-2023 Bamboo flowsheet Pepe Kirby PT Work Phone: [facility] Start: 12-24-2023 End: 12-24-2023 ambulatory Nereyda Vieira [employer] Work Phone: [facility] Comment on above: Acute pain of left k nee (Primary Dx); Status post arthroscopic reconstruction of anterior cruciate ligament of left knee using quadriceps tendon autograft Start: 12-24-2023 End: 12-24-2023 Bamboo flowsheet Nereydaannita Vieira [employer] TEACHER Work Phone: [facility] Start: 12-24-2023 End: 12-24-2023 Bamboo flowsheet Nereyda Vieira [employer] TEACHER Work Phone: [facility] Start: 12-17-2023 End: 12-17-2023 ambulatory Pepe Kirby PT Work Phone: [facility] Comment on above: Acute pain of left k nee (Primary Dx); Status post arthroscopic reconstruction of anterior cruciate ligament of left knee using quadriceps tendon autograft Start: 12-17-2023 End: 12-17-2023 Bamboo flowsheet Pepe Yañez Lilo PT Work Phone: [facility] Start: 12-17-2023 End: 12-17-2023 Bamboo flowsheet Pepe Yañez Lilo PT Work Phone: [facility] Start: 12-09-2023 End: 12-09-2023 Bamboo flowsheet Kelvin Schwartz DO Work Phone: [facility] Start: 12-09-2023 End: 12-09-2023 Bamboo flowsheet Kelvin Schwartz DO Work Phone: [facility] Start: 12-09-2023 End: 12-09-2023 Patient encounter procedure Kelvin Schwartz DO Work Phone: [facility] Comment on above: Left knee injury, in itial encounter (Primary Dx) Start: 12-03-2023 End: 12-03-2023 ambulatory Nereydaannita Vieira [employer] Work Phone: [facility] Comment on above: Acute pain of left k nee (Primary Dx); Status post arthroscopic reconstruction of anterior cruciate ligament of left knee using quadriceps tendon autograft Start: 12-03-2023 End: 12-03-2023 Bamboo flowsheet Nereydaannita Vieira [employer] TE[employer]ER Work Phone: [facility] Start: 12-03-2023 End: 12-03-2023 Bamboo flowsheet Nereyda Vieira [employer] TE[employer] Work Phone: [facility] Start: 11-19-2023 End: 11-19-2023 ambulatory Jennifer Dozier [employer] TE[employer] [facility] Comment on above: Acute pain of left k nee (Primary Dx); Status post arthroscopic reconstruction of anterior cruciate ligament of left knee using quadriceps tendon autograft Start: 11-19-2023 End: 11-19-2023 Bamboo flowsheet Jennifer Dozier [employer] TEACH[employer] [facility] Start: 11-19-2023 End: 11-19-2023 Bamboo flowsheet Jennifer Dozier [employer] TEACH[employer] [facility] Start: 11-12-2023 End: 11-12-2023 ambulatory Nereyda Vieira [employer] Work Phone: [facility] Comment on above: Acute pain of left k nee (Primary Dx); Status post arthroscopic reconstruction of anterior cruciate ligament of left knee using quadriceps tendon autograft Start: 11-12-2023 End: 11-12-2023 Bamboo flowsheet Nereyda Vieira [employer]ER Work Phone: [facility] Start: 11-12-2023 End: 11-12-2023 Bamboo flowsheet Nereyda Vieira [employer] Work Phone: [facility] Start: 09-02-2023 Non-patient / Non-visit MD Hector Payne Work Phone: [facility] Work Phone: Start: 09-02-2023 End: 09-02-2023 Admission to same day surgery center MD Rosalie Payne Work Phone: [facility] Work Phone: Start: 09-02-2023 End: 09-02-2023 ambulatory MD Rosalie Payne Work Phone: [facility] Work Phone: Start: 07-25-2023 End: 07-25-2023 ambulatory [facility] Work Phone: Start: 07-25-2023 End: 07-25-2023 Patient encounter procedure [facility] Work Phone: Start: 04-23-2023 End: 04-23-2023 ambulatory Myron Washburn Pocanaly Facility[place] Start: 04-22-2023 Chart abstracting Pepe Khan gs PT Work Phone: [facility] Start: 04-03-2023 End: 04-04-2023 ambulatory Myron Washburn Pocos Facility[facility] Start: 04-03-2023 End: 04-03-2023 Patient encounter procedure Myron Washburn Vaniaanaly [facility] Start: 04-01-2023 End: 04-01-2023 ambulatory Destinee Carmona Other [facility] Other Start: 04-01-2023 Office outpatient vi sit 15 minutes Destinee Carmona [facility] Start: 05-01-2022 End: 05-01-[address] DOC THOMAS . Facility:[facility] Start: 08-21-2021 End: 08-21-2021 ambulatory Carlie Thomas Other [facility] Other Start: 08-21-2021 Office outpatient vi sit 15 minutes Carlie Thomas [facility] Start: 07-26-2021 End: 07-26-[address] DOC THOMAS . Facility:[facility] Start: 05-24-2021 Emergency department patient visit ARTIS YODER [facility] Start: 05-24-2021 End: 05-24-2021 Emergency department patient visit Artis Yoder DO Work Phone: [facility] ED Comment on above: Contusion of left kn ee, initial encounter (Primary Dx) Start: 05-11-2021 End: 05-11-2021 ambulatory Adriana Evangelista Other [facility] Other Start: 05-11-2021 Office outpatient vi sit 15 minutes Adriana Evangelista [facility] Start: 05-01-2021 (URG) Urgent Care Visit Carlie Cherry dwight [facility] Start: 05-01-2021 End: 05-01-2021 ambulatory Carlie Martha Other [facility] Other Start: 04-07-2021 End: 04-07-2021 ambulatory Sandeep Ramirez Other [facility] Other Start: 04-07-2021 Office outpatient vi sit 15 minutes Sandeep Ramirez [facility] Start: 12-14-2020 End: 12-14-2020 Emergency department patient visit DAVID DOMINGUEZ [facility] Start: 12-14-2020 End: 12-14-2020 Emergency department patient visit David Dominguez MD Work Phone: [facility] Comment on above: Tailbone injury, ini tial encounter (Primary Dx) Start: 09-19-2020 End: 09-19-2020 Emergency department patient visit [facility] ED Comment on above: Closed head injury, initial encounter (Primary Dx) Start: 07-15-2017 End: 07-18-2017 Ambulatory DAVID BECERRIL [facility] Start: 05-15-2017 End: 05-15-2017 Ambulatory DAVID BECERRIL [facility] Start: 04-30-2017 End: 04-30-2017 Ambulatory DAVID BECERRIL [facility] Start: 04-29-2017 End: 04-30-2017 Ambulatory DAVID BECERRIL [facility] Start: 03-13-2017 End: 03-14-2017 Ambulatory BLANCA APBLO Facility:[facility] Procedures Date Procedure Procedure Detail Performing Clinician Start: 12-23-2024 Urnls dip stick/tablet rgnt non-auto w/o micrscp Luna Steen NP Work Phone: Start: 12-09-2024 Urnls dip stick/tablet rgnt non-auto w/o micrscp Doc William DO Work Phone: Start: 11-25-2024 Urnls dip stick/tablet rgnt non-auto w/o micrscp Luna Steen [employer] MAKER Work Phone: Start: 11-24-2024 CA ECHO DOPPLER COMPLETE Generic Externa l Data Provider Start: 11-12-2024 ECG 12-LEAD Generic External Data Provider Start: 11-03-2024 ALL CBC WITH AUTO DIFF Luna Steen [employer] MAK[employer] Work Phone: Start: 10-28-2024 RECURRENT VAGINITIS (HTRX) Luna patel [employer] MAKER Work Phone: Start: 10-28-2024 Urnls dip stick/tablet rgnt non-auto w/o micrscp Luna Steen [employer] MAKER Work Phone: Start: 10-28-2024 IGP,APTIMA HPV,AGE GDLN [...] knee using quadriceps tendon autograft Nereyda Vieira [employer] Work Phone: Start: 05-24-2021 Radiologic examination knee [...] knee using bone-patellar tendon-bone autograft Myron Washburn Pocanaly DO Work Phone: History of reconstru ction of anterior cruciate ligament tear Status post arthroscopic reconstruction of anterior cruciate ligament of left knee using quadriceps tendon autograft Pepe Kirby PT Work Phone: History of reconstru ction of anterior cruciate ligament tear Status post arthroscopic reconstruction of anterior cruciate ligament of left knee using quadriceps tendon autograft Nereyda Vieira [employer] Work Phone: History of reconstru ction of anterior cruciate ligament tear Status post arthroscopic reconstruction of anterior cruciate ligament of left knee using quadriceps tendon autograft Pepe Kirby PT Work Phone: History of reconstru ction of anterior cruciate ligament tear Status post arthroscopic reconstruction of anterior cruciate ligament of left knee using quadriceps tendon autograft Nereyda Vieira [employer] TE[employer] Work Phone: History of reconstru ction of anterior cruciate ligament tear Status post arthroscopic reconstruction of anterior cruciate ligament of left knee using quadriceps tendon autograft Nereyda Vieira [employer] TE[employer] Work Phone: History of reconstru ction of anterior cruciate ligament tear Status post arthroscopic reconstruction of anterior cruciate ligament of left knee using quadriceps tendon autograft Jennifer Halejanak [employer] Laparoscopic excisio n of cyst of left ovary Myron Marroquin Plan of Treatment Date Care Activity Detail Author Start: 09-14-2025 Influenza vaccination Influenza Vacc ine (#1) [facility] Comment on above: Postponed from 11/16 (Patient Refused) Start: 12-23-2024 End: 12-23-2024 Patient encounter procedure KYE OLSON Comment on above: Arrived Start: 12-23-2024 End: 12-23-2024 Professional / ancillary services management 12/23/2024 1:30 PM EDT Ancillary Procedure KYE OLSON [address] [place] [address] [place] [id number] KYE OLSON Start: 12-09-2024 End: 12-09-2024 Patient encounter procedure KYE OLSON Comment on above: Arrived Start: 11-25-2024 End: 05-25-2025 US biophysical profile w non stress test US biophysical profile w non stress test 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/2024 (Approximate), Expires: 05/25/2025 [facility] Work Phone: Comment on above: Expected: 11/25/2024 (Approximate), Expires: 05/25/2025 Start: 11-25-2024 End: 03-27-2025 US for US OB follow up transabdominal approach 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/2024, Expires: 03/27/2025 [facility] Comment on above: Expected: 11/25/2024 , Expires: 03/27/2025 Start: 11-25-2024 End: 11-25-2024 Patient encounter procedure [facility] Comment on above: Arrived Start: 11-16-2024 Influenza vaccination [facility] Start: 10-28-2024 End: 10-28-2024 Patient encounter procedure [facility] Comment on above: Arrived Start: 10-28-2024 End: 10-28-2025 12 lead ECG ECG 12 lead unit performed ECG Routine Heart palpitations Expected: 10/28/2024 (Approximate), Expires: 10/28/2025 [facility] Comment on above: Expected: 10/28/2024 (Approximate), Expires: 10/28/2025 Start: 10-28-2024 End: 10-28-2025 CBC panel - Blood by Automated count CBC Lab Routine Diabetes mellitus screening Expected: 10/28/2024 (Approximate), Expires: 10/28/2025 [facility] Work Phone: Comment on above: Expected: 10/28/2024 (Approximate), Expires: 10/28/2025 Start: 10-28-2024 End: 10-28-2026 Echocardiogram 2D complete Echocardiogram 2D complete Echocardiography Routine Heart palpitations Expected: 10/28/2024 (Approximate), Expires: 10/28/2026 [facility] Comment on above: Expected: 10/28/2024 (Approximate), Expires: 10/28/2026 Start: 10-28-2024 End: 10-28-2025 Measurement of glucose 1 hour after glucose challenge for glucose tolerance test Glucose tolerance, 1 hour Lab Routine Diabetes mellitus screening Expected: 10/28/2024 (Approximate), Expires: 10/28/2025 [facility] Comment on above: Expected: 10/28/2024 (Approximate), Expires: 10/28/2025 Start: 09-30-2024 End: 09-30-2024 Patient encounter procedure 09/30/2024 3:40 PM EDT Routine [facility] [address] [facility] [facility] [place] [id number] Doc Thomas, DO [address] [facility] [place] [address] [facility] Start: 09-30-2024 End: 09-30-2024 Professional / ancillary services management 09/30/2024 2:30 PM EDT Ancillary Procedure [facility] [address] [facility] [place] [address] [facility] Start: 09-02-2024 End: 09-02-2024 Patient encounter procedure [facility] Comment on above: Arrived Start: 09-02-2024 End: 11-02-2024 Alpha fetoprotein, maternal Alpha fetoprotein, maternal Lab Routine Second trimester ([facility]) Expected: 09/02/2024 (Approximate), Expires: 11/02/2024 [facility] Comment on above: Expected: 09/02/2024 (Approximate), Expires: 11/02/2024 Start: 09-02-2024 End: 12-03-2024 US for US OB 14+ weeks anatomy scan Imaging Routine Screening, , for anatomic survey ([facility]) Expected: 09/02/2024, Expires: 12/03/2024 [facility] Work Phone: Comment on above: Expected: 09/02/2024 , Expires: 12/03/2024 Start: 08-05-2024 End: 08-05-2024 Patient encounter procedure [facility] Comment on above: Arrived Start: 07-16-2024 End: 07-16-2025 ABO/Rh ABO/Rh Lab Routine Missed menses , unspecified gestational age Expected: 07/16/2024 (Approximate), Expires: 07/16/2025 [facility] Comment on above: Expected: 07/16/2024 (Approximate), Expires: 07/16/2025 Start: 07-16-2024 End: 07-16-2025 Blood type and Indirect antibody screen panel - Blood Type and screen Lab Routine Missed menses , unspecified gestational age Expected: 07/16/2024 (Approximate), Expires: 07/16/2025 [facility] Comment on above: Expected: 07/16/2024 (Approximate), Expires: 07/16/2025 Start: 07-16-2024 End: 07-16-2025 Drugs of abuse panel - Urine by Screen method Rapid drug screen, urine Lab Routine , unspecified gestational age Encounter for supervision of normal first in first trimester Expected: 07/16/2024 (Approximate), Expires: 07/16/2025 [facility] Comment on above: Expected: 07/16/2024 (Approximate), Expires: 07/16/2025 Start: 07-10-2024 End: 10-09-2024 US Pelvis transvaginal US OB transvaginal Imaging Routine Missed menses Expected: 07/10/2024, Expires: 10/09/2024 [facility] Work Phone: Comment on above: Expected: 07/10/2024 , Expires: 10/09/2024 Start: 02-21-2024 End: 02-21-2024 Patient encounter procedure 02/21/2024 8:00 AM EST Office Visit [facility] [address] [place] [address] Myron Marroquin, [address] [facility] [place] [address] [facility] Start: 02-19-2024 End: 02-19-2024 Patient encounter procedure 02/19/2024 3:30 PM EST Office Visit [facility] [address] [facility] [address] [place] [address] Rosalie Payne MD 112 [facility] 100 [place] [address] (Fax) 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CMS/HCC); Chronic fatigue; Cigarette [...] EDT Treatment [facility] [address] [place] [phone] Pepe Kirby, PT [address] [place] [address] [facility] Start: 01-14-2024 End: 01-14-2024 ambulatory 01/14/2024 3:30 PM EDT Treatment [facility] [address] [place] [phone] Nereyda Vieira, [employer] [address] [place] [address] [facility] Start: 01-10-2024 End: 01-10-2024 ambulatory 01/10/2024 2:30 PM EDT Treatment [facility] [address] [place] [phone] Pepe Kirby, PT [address] [place] [address] [facility] Start: 01-07-2024 End: 01-07-2024 ambulatory 01/07/2024 3:30 PM EDT Treatment [facility] [address] [place] [phone] Pepe Kirby, PT [address] [place] [address] [facility] Start: 01-03-2024 End: 01-03-2024 ambulatory 01/03/2024 2:30 PM EDT Treatment [facility] [address] [place] [phone] Pepe Kirby, PT [address] [place] [address] [facility] Start: 12-31-2023 End: 12-31-2023 ambulatory 12/31/2023 3:30 PM EDT Treatment [facility] [address] [place] [phone] Jennifer Dozier, VOCAL MUSIC TEACHER [facility] Start: 12-27-2023 End: 12-27-2023 ambulatory [facility] Comment on above: Arrived Start: 12-24-2023 End: 12-24-2023 ambulatory 12/24/2023 3:00 PM EDT Treatment [facility] [address] [place] [phone] Nereyda Vieira, V[employer] MUS[employer] TE[employer] [address] [place] [address] [facility] Start: 12-17-2023 End: 12-17-2023 ambulatory 12/17/2023 3:00 PM EDT Treatment [facility] [address] [place] [phone] Pepe Kirby, PT [address] [place] [address] [facility] Start: 12-09-2023 End: 12-09-2023 Patient encounter procedure [facility] Comment on above: Arrived Start: 12-03-2023 End: 12-03-2023 ambulatory 12/03/2023 3:30 PM EDT Treatment [facility] [address] [place] [phone] Nereyda Vieira, V[employer] MUS[employer] TE[employer]ER [address] [place] [address] Arrived [facility] Comment on above: Arrived Start: 11-19-2023 End: 11-19-2023 ambulatory [facility] Comment on above: Acute pain of left k nee (Primary Dx); Status post arthroscopic reconstruction of anterior cruciate ligament of left knee using quadriceps tendon autograft Start: 11-17-2023 Influenza vaccination Influenza Vacc ine (#1) [facility] Start: 09-02-2023 [facility] Start: 05-07-2023 End: 05-07-2023 Patient encounter procedure 05/07/2023 11:10 AM EST Office Visit [facility] [address] [place] [address] Doc Thomas, DO [address] [place] [address] [facility] Start: 05-03-2023 End: 05-03-2023 Patient encounter procedure 05/03/2023 11:00 AM EST Office Visit [facility] [address] [place] [address] Myron Marroquin, DO [address] [place] [address] [facility] Start: 04-23-2023 End: 04-23-2023 Patient encounter procedure 04/23/2023 8:00 AM EST Procedure Visit [facility] Myron Marroquin, DO [address] [facility] [place] [address] [facility] Start: 04-22-2023 End: 04-22-2023 ambulatory 04/22/2023 2:30 PM EST Evaluation [facility] [address] [place] [address] Pepe Kirby, PT [address] [place] [address] [facility] Start: 11-16-2022 Influenza vaccination Influenza Vacc ine (#1) [facility] Start: 08-30-2021 DTaP/Tdap/Td vaccine (5 - Td or Tdap) DTaP/Tdap/Td vaccine (5 - Td or [facility]dap[facility] Start: 11-16-2020 Influenza vaccination Flu vaccine (# 1) [facility] Start: 06-09-2020 Screening for malign ant neoplasm of cervix [facility] Start: 06-09-2018 DTaP/Tdap/Td vaccine (1 - Tdap) DTaP/Tdap/Td vaccine (1 - Tdap) [facility] Work Phone: Start: 2015 Screening for Chlamy jasper trachomatis Chlamydia screen [facility] Start: 06-09-2014 HIV screening HIV screen [facility] Start: 11-23-2011 Varicella vaccine (2 of 2 - 2-dose childhood series) Varicella vaccine (2 of 2 - 2-dose childhood series) [facility] Start: 2011 COVID-19 Vaccine (1) COVID-19 Vaccin e (1) [facility] Work Phone: Start: 2011 Depression Screen Depression Screen [facility] Start: 06-09-2010 HPV vaccine (1 - 2-d ose series) HPV vaccine (1 - 2-dose series) [facility] Start: 06-09-2004 COVID-19 Vaccine (1) COVID-19 Vaccin e (1) [facility] Start: 06-09-2000 Varicella vaccine (1 of 2 - 2-dose childhood series) Varicella vaccine (1 of 2 - 2-dose childhood series) [facility] Phone: Start: 1999 Hepatitis C screening Hepatitis C [facility] Bacteria identified in Urine by Culture Urine culture Microbiology Routine Missed menses Ordered: 07/16/2024 [facility] Comment on above: Ordered: 07/16/2024 CBC W Auto Different ial panel - Blood CBC and differential Lab Routine Missed menses , unspecified gestational age Ordered: 07/16/2024 [facility] Comment on above: Ordered: 07/16/2024 CHLAMYDIA TRACHOMATI S (GENITO/STI) CHLAMYDIA TRACHOMATIS (GENITO/STI) Lab Routine STD exposure Ordered: 10/28/2024 [facility] Comment on above: Ordered: 10/28/2024 Cytology Cervical or vaginal smear or scraping study Pap Smear Pathology and Cytology Routine Well woman exam with routine gynecological exam Ordered: 10/28/2024 [facility] Comment on above: Ordered: 10/28/2024 Hemoglobin A1c/Hemoglobin.total in Blood Hemoglobin A1c Lab Routine Missed menses , unspecified gestational age Ordered: 07/16/2024 [facility] Comment on above: Ordered: 07/16/2024 Hepatitis B virus surface Ag [Presence] in Serum or Plasma by Immunoassay Hepatitis B surface antigen Lab Routine Missed menses , unspecified gestational age Ordered: 07/16/2024 [facility] Comment on above: Ordered: 07/16/2024 Hepatitis C virus Ab [Presence] in Serum or Plasma by Immunoassay Hepatitis C antibody Lab Routine Missed menses , unspecified gestational age Ordered: 07/16/2024 [facility] Comment on above: Ordered: 07/16/2024 HIV-1/HIV-2 antigen/antibody combination immunoassay HIV-1 and HIV-2 antibodies Lab Routine Missed menses , unspecified gestational age Ordered: 07/16/2024 [facility] Comment on above: Ordered: 07/16/2024 Neisseria gonorrhoea e DNA [Presence] in Unspecified specimen by QUEENIE with probe detection Neisseria gonorrhea DNA probe, direct Lab Routine STD exposure Ordered: 10/28/2024 [facility] Comment on above: Ordered: 10/28/2024 Patient Education Hiatal hernia Hemorrhoids Gastritis Know your [facility] Work Phone: Reagin Ab [Presence] in Serum by RPR RPR Lab Routine Missed menses , unspecified gestational age Ordered: 07/16/2024 [facility] Comment on above: Ordered: 07/16/2024 Rubella antibody, IgG Rubella an tibody, IgG Lab Routine Missed menses , unspecified gestational age Ordered: 07/16/2024 [facility] Comment on above: Ordered: 07/16/2024 SURESWAB(R) ADVANCED VAGINITIS PLUS, TMA SURESWAB(R) ADVANCED VAGINITIS PLUS, TMA Pathology and Cytology Routine STD exposure Ordered: 10/28/2024 [facility] Comment on above: Ordered: 10/28/2024 End: 08-05-2025 Thyrotropin [Units/volume] in Serum or Plasma TSH Lab Routine 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CMS/HCC) [id number] for 6 Occurrences starting 08/05/2024 until 08/05/2025 [facility] Work Phone: Comment on above: [id number] for 6 Occurr ences starting 08/05/2024 until 08/05/2025 US Pelvis transvaginal US OB tra nsvaginal Imaging Routine Missed menses 07/16/2024 1:59 PM EDT [facility] Immunizations Immunization Date Immunization Notes Care Provider Fa nicolette 11-12-2016 hepatitis B vaccine, adult dosage Pepe Lilo PT Work Phone: [facility] 11-12-2016 meningococcal oligosaccharide (groups A, C, Y and W-135) diphtheria toxoid conjugate vaccine (MCV4O) Pepe Lilo PT Work Phone: [facility] 03-31-2012 hepatitis A vaccine, pediatric/adolescent dosage, 2 dose schedule Pepe Lilo PT Work Phone: [facility] 08-31-2011 hepatitis A vaccine, pediatric/adolescent dosage, 2 dose schedule Pepe Lilo PT Work Phone: [facility] 08-31-2011 tetanus toxoid, redu leyla diphtheria toxoid, and acellular pertussis vaccine, adsorbed Pepe Lilo PT Work Phone: [facility] 08-31-2011 varicella virus vaccine Pepe Lilo PT Work Phone: [facility] 09-11-2000 haemophilus influenz ae type b conjugate and Hepatitis B vaccine Pepe Lilo PT Work Phone: [facility] 09-11-2000 haemophilus influenz ae type b vaccine, HbOC conjugate Pepe Lilo PT Work Phone: [facility] 09-11-2000 hepatitis B vaccine, pediatric or pediatric/adolescent dosage Pepe Lilo PT Work Phone: [facility] 09-11-2000 measles, mumps and r ubella virus vaccine Pepe Lilo PT Work Phone: [facility] 09-11-2000 poliovirus vaccine, inactivated Pepe Kirby PT Work Phone: [facility] 03-26-2000 DTaP-Haemophilus influenzae type b conjugate vaccine Pepe Kirby PT Work Phone: [facility] 03-26-2000 pneumococcal conjuga te vaccine, 7 valent Pepe Kirby PT Work Phone: [facility] 1999 diphtheria, tetanus toxoids and acellular pertussis vaccine, Haemophilus influenzae type b conjugate, and poliovirus vaccine, inactivated ([id number]-Ggy-HGL) Pepe Kirby PT Work Phone: [facility] 1999 diphtheria, tetanus toxoids and acellular pertussis vaccine, Haemophilus influenzae type b conjugate, and poliovirus vaccine, inactivated (ZHtK-[id number]-[id number]) Pepe Kirby PT Work Phone: [facility] 1999 hepatitis B vaccine, pediatric or pediatric/adolescent dosage Pepe Kirby PT Work Phone: [facility] 1999 hepatitis B vaccine, pediatric or pediatric/adolescent dosage Pepe Kirby PT Work Phone: [facility] Payers Date Payer Category Payer Self-pay 2023 Unknown [id number] 2022 Unknown [id number] 2022 [employer] Blue Shield 1.2.8 [id number] 2022 Unknown [id number] 2020 Unknown [id number] 2006 Private Health Insurance [id number] 1999 Unknown [id number] 2.16.8 40.1.685641.3.579.2.173 1999 Unknown [id number] 2.16.8 40.1.620208.3.579.2.173 1999 Unknown [id number] 2.16.8 40.1.412290.3.579.2.173 1999 Unknown [id number] 2.16.84 0.1.387514.3.579.2.593 1999 Unknown [id number] 2.16.84 0.1.111712.3.579.2.593 1999 Unknown [id number] 2.16.8 40.1.828407.3.579.2.727 1999 Unknown [id number] 2.16.8 40.1.128976.3.579.2.727 1999 Unknown [id number] 2.16.8 40.1.288149.3.579.2.1259 1999 Unknown [id number] 2.16.8 40.1.240845.3.579.2.1259 1999 Unknown [id number] 2.16.8 40.1.105972.3.579.2.1259 1999 Unknown [id number] 2.16.8 40.1.602816.3.579.2.1259 1999 Unknown [id number] 2.16.8 40.1.862063.3.579.2.1259 1999 Unknown [id number] 2.16.8 40.1.259360.3.579.2.1259 1999 Unknown [id number] 2.16.8 40.1.814712.3.579.2.1259 1999 Unknown [id number] 2.16.84 0.1.629487.3.579.2.1259 1999 Unknown [id number] 2.16.84 0.1.108608.3.579.2.1259 1999 Unknown [id number] 2.16.84 0.1.144271.3.579.2.1259 1999 Unknown [id number] 2.16.84 0.1.518015.3.579.2.1259 1999 Unknown [id number] 2.16.84 0.1.691172.3.579.2.1259 1999 Unknown [id number] 2.16.84 0.1.391249.3.579.2.1259 1959 Unknown [id number] 2.1 6.840.1.970969.19 1959 Unknown [id number] [facility] GTFAN [id number] 2.16.840.1.816787.19 Unknown [id number] 2.16.8 40.1.558498.3.579.2.531 Social History Date Type Detail Facility Start: 09-19-2020 End: 12-14-2020 Tobacco smoking status [facility] Never smoker [facility] Phone: Start: 09-19-2020 End: 05-10-2023 Tobacco use and exposure Never used One Month Start: 1999 Sex Assigned At Not on file [facility] Phone: Exposure to SARS-CoV -2 (event) Not sure [facility] Start: 12-14-2020 End: 05-24-2021 Alcohol intake Current drinker of alcohol (finding) [facility] Phone: Start: 12-14-2020 Alcohol Comment Rare [facility] Phone: Start: 12-11-2022 End: 02-26-2024 Sex Assigned At [facility] Tobacco Current vaping o r e-cigarette use Smokeless Tobacco Use:. Vaping [facility] Tobacco smoking status No Smokin g Status Entered [facility] Start: 02-09-2023 End: 05-10-2023 Tobacco smoking status [facility] Occasional tobacco smoker [facility] Start: 04-15-2023 End: 12-23-2024 Alcohol intake Ex-drinker (finding) [facility] Start: [...] Gender identity Identifies as female gender (finding) [facility] Start: 07-25-2023 End: 09-02-2023 Tobacco smoking status RIIS Smoker (finding) [facility] History of tobacco use Cigarette Smoker [facility] Start: 05-30-2024 [facility] Goals Date Patient Goal Desired Activity /State Functional Status Date Assessment Result Facility 04-03-2023 Functional Status No [facility] Clinical Notes 04-07-2021 to 12-23-2024 Luna Steen NP - 12/23/2024 2:00 PM Meggan Anton LPN - 12/09/2024 2:00 PM Leida Steen NP - 11/25/2024 1:50 PM Leida Steen NP - 10/28/2024 2:30 PM EDT Note Date & Type Note Facility 12-23-2024 History of Present illness Narrative Reason for Appointment: Patient ID: Aleta Csatro is a 24 y.o. female who presents [...] Left 2019 OVARIAN CYST REMOVAL Left 05/20/2020 [facility] William VAGINAL DELIVERY REVIEW OF [...] nursing note reviewed. Exam conducted with a brine tank tender present. Vitals: Estimated body mass index is 29.42 kg/m as calculated from the following: Height as of 02/26/24: 5' 4 . Weight as of this encounter: 171 lb 6.4 oz. BP: 110/70 Patient's last menstrual period was 05/16/2024. ASSESSMENT & PLAN ICD-10-CM 1. Third trimester ([facility]) Z34.93 2. 31 weeks gestation of ([facility]) Z3A.31 POCT urinalysis dipstick manually resulted Return [...] week for routine OB appointment. Documented by Luna Steen NP on behalf of: Luna Steen NP documented in this encounter [facility] 12-09-2024 History of Present illness Narrative Reason for [...] Left 2019 OVARIAN CYST REMOVAL Left 05/20/2020 [facility] William VAGINAL DELIVERY REVIEW OF [...] nursing note reviewed. Exam conducted with a brine tank tender present. Vitals: Estimated body mass index is 28.84 kg/m as calculated from the following: Height as of 02/26/24: 5' 4 . Weight as of this encounter: 168 lb. BP: 110/74 Patient's last menstrual period was 05/16/2024. ASSESSMENT & PLAN ICD-10-CM 1. Third trimester ([facility]) Z34.93 POCT urinalysis dipstick manually resulted 2. 29 weeks gestation of ([facility]) Z3A.29 Return OB: Patient presents today for a routine obstetrics appointment. Patient is currently 29w4d . Patient states she is doing well but has complaints of being tired due to current . Patient has verbalizes frequent movement. labor precautions was discussed/given and patient was instructed to perform kick counts three times a day. Pt was given diflucan for continued itching- pt has 3 more days of antibiotics Orders Placed This Encounter Procedures POCT urinalysis dipstick manually resulted Follow Up: Patient is to return to office in 2 week for routine OB appointment. Documented by Lissette Anton LPN on behalf of: Doc Thomas DO documented in this encounter [facility] 11-27-2024 Note [facility] Note Reason for cardiology consult: Cardiogenic syncope Chief Complaint: Syncope HPI: summer Matthew is a 24 y.o. female with history of neurocardiogenic syncope diagnosed about 6 years ago, Gabby disease, chronic fatigue, overweight, anxiety/depression Patient is now 28 weeks . She reports that she was diagnosed with neurocardiogenic syncope about 6 years ago by [facility] cardiology and she was on medications. Around that time she had her first . After that she got better she stopped medications. She has been doing well for the last 4 years. Over the last 2 months she has been having episodes of palpitations with with syncope only 3 times. And other times she was able to avoid syncope by drinking fluids and adding salt and sitting down right away. She does not wear any compression stockings. Other than that she denies any chest pain or shortness of breath at rest or with exertion. She denies orthopnea or paroxysmal nocturnal dyspnea or legs edema. She denies smoking alcohol or illicit drugs. She denies using caffeine Cardiology ROS: GENERAL: Denies fever, chills, night sweats, weight loss. HEENT: Denies changes in vision, photophobia, changes in hearing, epistaxis, oral bleeding. CARDIOVASCULAR: As described above in the history RESPIRATORY: Denies SOB, coughing, wheezing GI: Denies abdominal pain, nausea/vomiting, heartburn, melena/hematochezia. RENAL: Denies dysuria, hematuria, flank pain. MSK: Denies muscle weakness/pain, arthralgias/joint pain. NEUROLOGIC: Denies LOC, weakness, numbness, headaches. SKIN: Denies abnormal rashes or bleeding. PSYCH: Denies significant anxiety, depression, sleep disturbances. Past Medical History She has a past medical history of Chronic fatigue, Depression, Gabby's disease, POTS (postural orthostatic tachycardia syndrome), Smoker, Subclinical hypothyroidism, and Syncope, cardiogenic. Surgical History She has no past surgical history on file. Social History She reports that she has quit smoking. Her smoking use included cigarettes. She has quit using smokeless tobacco. She reports that she does not currently use alcohol. She reports that she does not use drugs. Family History Family History[1] Allergies Azithromycin, Midodrine, and Latex Medications Current Medications[2] Last Recorded Vitals Visit Vitals BP 116/80 (BP Location: Left arm, Patient Position: Sitting) Pulse 78 Ht 1.651 m (5' 5 ) Wt 78 kg (172 lb) SpO2 99% BMI 28.62 kg/m??? Smoking Status Former BSA 1.89 m??? Physical Examination: GENERAL: alert and oriented x3, well developed, in no acute distress. HEAD: atraumatic, normocephalic. EYES: WILLIE, EOMI. NECK: trachea midline, no JVD present, no carotid bruits present. CARDIAC: S1, S2 present. RRR. No murmur, rubs, or gallops. RESPIRATORY: CTAB, no increased effort of breathing, no rales, rhonchi, or wheezing. ABDOMEN: soft, nontender, nondistended. . EXTREMITIES: no lower extremity edema, peripheral pulses are 2+ bilaterally. No rash/skin discoloration present. NEURO: strength/sensation equal and symmetric in bilateral upper and lower extremities. PSYCH: appropriate mood, affect, and judgement. Labs: TSH 11/03/2024 0.658 10/18/2024 White blood count 6.2, hemoglobin 13, hematocrit 37, platelets 248 HbA1c 5% 02/20/2024 Glucose 95, BUN 16, creatinine 0.71, GFR 122, Sodium 139, potassium 4.2, calcium 9.3 Total protein 7.4, albumin 4.8, total bilirubin 0.6, alk phos 65, AST 14, ALT 16 Last Images: EKG 11/12/2024 showed sinus rhythm, heart rate 79 bpm, normal EKG Echo 11/12/2024 Tilt table test 07/10/2016 Positive study for neurocardiogenic syncope Assessment and Plan: Syncopal episodes during , due to neurocardiogenic syncope exacerbated by Recent echo and EKG are normal. She reports that she had recent labs by her OB and they were normal History of neurocardiogenic syncope diagnosed 6 years ago 28 weeks Gabby disease Plan: Patient was advised to continue what she is doing avoiding caffeine and alcohol and increasing her fluid intakes and to sit down immediately when she feels dizzy or lightheaded I prescribed her compression stocking to wear during the daytime with moderate pressure 20 to 30 mmHg Will get her most recent labs to review from her OB I do not think patient needs any further cardiac workup at this point. Patient seems to be every with your office the pathology of her symptoms and she knows what to do. Follow-up after delivery or sooner if needed Lesa Singh MD,FACC [1] No family history on file. [2] Current Outpatient Medications: ondansetron ODT (Zofran-ODT) 4 mg disintegrating tablet, Take 4 mg by mouth if needed., Disp: , Rfl: polysaccharide iron complex 180 mg iron capsule, Take 391.3 mg by mouth in the morning., Disp: , Rfl: no.37/i (more content not included)... [facility] 11-25-2024 History of Present illness Narrative Reason for Appointment: Patient ID: Aleta Castro is a 24 y.o. female who presents for Routine Visit Patient presents today for Return OB appointment. MEDICATIONS Current Outpatient Medications Medication Instructions iron polysaccharides (PROFE) 391.3 mg, Oral, Daily ondansetron (ZOFRAN) 4 mg, Oral, Every 6 [...] Left 2019 OVARIAN CYST REMOVAL Left 05/20/2020 [facility] William VAGINAL DELIVERY REVIEW OF [...] nursing note reviewed. Exam conducted with a brine tank tender present. Vitals: Estimated body mass index is 29.95 kg/m as calculated from the following: Height as of 02/26/24: 5' 4 . Weight as of this encounter: 174 lb 8 oz. BP: 110/60 Patient's last menstrual period was 05/16/2024. ASSESSMENT & PLAN ICD-10-CM 1. Second trimester ([facility]) Z34.92 POCT urinalysis dipstick manually resulted 2. 27 weeks gestation of ([facility]) Z3A.27 3. 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 Patient is currently 27w4d . Patient states she is doing well but has complaints of being tired due to current . Patient has verbalizes frequent movement. labor precautions was discussed/given and patient was instructed to perform kick counts three times a day. Orders Placed This Encounter Procedures US biophysical profile w non stress test US OB follow up transabdominal approach POCT urinalysis dipstick manually resulted Follow Up: Patient to have Growth Ultrasound at 28 weeks. TSH continues every 4 weeks; and NST and BPP to begin at 32 weeks. Cardiac Echo completed on 11/12/24 with EfF 55-60% without valvular dysfunction otherwise normal. Patient is to return to office in 2 week for routine OB appointment. Documented by Luna Steen NP on behalf of: Luna Steen NP documented in this encounter [facility] 10-28-2024 History of Present illness Narrative Reason [...] Left 2019 OVARIAN CYST REMOVAL Left 05/20/2020 [facility] William VAGINAL DELIVERY REVIEW OF [...] nursing note reviewed. Exam conducted with a brine tank tender present. Vitals: Estimated body mass index is 28.49 kg/m as calculated from the following: Height as of 24: 5' 4 . Weight as of this encounter: 166 lb. BP: 130/80 Patient's last menstrual period was 05/16/2024. ASSESSMENT & PLAN ICD-10-CM 1. Second trimester ([facility]) Z34.92 POCT urinalysis dipstick manually resulted 2. 23 weeks gestation of ([facility]) Z3A.23 3. Diabetes mellitus screening Z13.1 CBC [...] and prior work up for palpitations with [facility]. Plan will be to continue TSH every 4 weeks, EKG and cardiac Echo and follow up with [facility] and a referral will be made she declined Metoprolol at this time. Patient is to return to office in 4 week for routine OB appointment. Documented by Luna Steen NP on behalf of: Luna Steen NP documented in this encounter [facility] 09-30-2024 History of Present illness Narrative Reason [...] Left 2019 OVARIAN CYST REMOVAL Left 05/20/2020 [facility] William VAGINAL DELIVERY REVIEW OF [...] nursing note reviewed. Exam conducted with a brine tank tender present. Vitals: Estimated body mass index is 28.29 kg/m as calculated from the following: Height as of 02/26/24: 5' 4 . Weight as of this encounter: 164 lb 12.8 oz. BP: 110/72 Patient's last menstrual period was 05/16/2024. ASSESSMENT & PLAN ICD-10-CM 1. 19 weeks gestation of ([facility]) Z3A.19 POCT urinalysis dipstick manually resulted 2. Second trimester ([facility]) Z34.92 POCT urinalysis dipstick manually resulted Patient [...] Doc Thomas DO documented in this encounter [facility] 09-02-2024 History of Present illness Narrative Reason [...] Left 2019 OVARIAN CYST REMOVAL Left 05/20/2020 [facility] William VAGINAL DELIVERY REVIEW OF [...] nursing note reviewed. Exam conducted with a brine tank tender present. Vitals: Estimated body mass index is 30.21 kg/m as calculated from the following: Height as of 02/26/24: 5' 4 . Weight as of 08/05/24: 176 lb. BP: Patient's last menstrual period was 05/16/2024. ASSESSMENT & PLAN ICD-10-CM 1. Second trimester ([facility]) Z34.92 Alpha fetoprotein, maternal Alpha fetoprotein, maternal POCT urinalysis dipstick manually resulted 2. 15 weeks gestation of ([facility]) Z3A.15 3. Screening, , for anatomic survey ([facility]) Z36.89 US OB 14+ weeks anatomy scan [...] week for routine OB appointment. Documented by Luna Steen NP on behalf of: ADAN Gonzalez documented in this encounter [facility] 08-05-2024 History of Present illness Narrative Reason [...] Left 2019 OVARIAN CYST REMOVAL Left 05/20/2020 [facility] William VAGINAL DELIVERY REVIEW OF [...] nursing note reviewed. Exam conducted with a brine tank tender present. Vitals: Estimated body mass index is [...] or undercooked meat, and stay away from [facility]. Patient has been consulted regarding any further do's and don'ts of . Patient voiced understanding and all questions and concerns were answered. Given tsh standing order and advised to start baby aspirin Orders Placed This Encounter Procedures TSH POCT urinalysis dipstick manually resulted Follow Up: Patient is to return in 4 weeks for routine OB appointment. Documented by Lsisette Anton LPN on behalf of: Doc Thomas DO documented in this encounter [facility] 07-16-2024 History of Present illness Narrative Reason [...] Left 2019 OVARIAN CYST REMOVAL Left 05/20/2020 [facility] William VAGINAL DELIVERY Allergies Allergen Reactions Azithromycin [...] or undercooked meat, and stay away from [facility]. Patient has also been advised to [...] Aliya Aguilar LPN documented in this encounter [facility] 02-26-2024 History of Present illness Narrative Images from the original note were not included. Aleta Castro is a 23 y.o. female presents with chief complaint of left knee sprain, history of anterior cruciate ligament reconstruction. HPI: Aleta returns here today for repeat evaluation of the above. She is doing fairly well. She did see Dr. Schwartz. She was referred back here, no further [...] Left 2019 OVARIAN CYST REMOVAL Left 05/20/2020 [facility] William VAGINAL DELIVERY FAMILY HISTORY: Family History [...] 7:42 AM EST documented in this encounter [facility] 02-19-2024 History of Present illness Narrative Images [...] Iron and TIBC documented in this encounter [facility] 12-27-2023 History of Present illness Narrative Physical [...] at this time. documented in this encounter [facility] 12-17-2023 History of Present illness Narrative Physical [...] Continue as tolerated. documented in this encounter [facility] 12-09-2023 History of Present illness Narrative Images from the original note were not included. @ENCDATE@ [facility] Matthew is a 23 y.o. female [...] operative report and arthroscopic photos available in [facility]. Following the surgery in April 2023, she [...] Left 2019 OVARIAN CYST REMOVAL Left 05/20/2020 [facility] William VAGINAL DELIVERY FAMILY HISTORY: Family History [...] with the patient. Assessment & Plan 1. 7-12 months s/p ACL reconstruction, left knee. The [...] no diagnoses linked to this encounter. Kelvin Schwartz D.O. Attestation This note was created using voice recognition through [email or web address]. documented in this encounter [facility] 09-02-2023 Procedure note [facility] 09-02-2023 History and physical note Note Date/Time September 02, 2023 11:40am [facility] ENTER [address] [place] [address] Gastroenterology H&P Signed Patient: Aleta Castro MR#: [id number] : 2000 Acct:[id number] Age/Sex: 23 / F Adm Date: 4 Loc: Room: Type: [facility] Attending Dr: Marcelle Patel DO Copies [...] signed by Marcelle Patel DO> 09/02/23 [facility] Work Phone: 1(191) 506-751706-17-2024 [facility] [id number] [facility] Evaluation note* Encounter Date Diagnosis Assessment [...] follow up with PCP if symptoms persist. [facility] Other 06-06-2022 Evaluation note* Encounter Date Diagnosis [...] or concerns Aug, Bronchitis (ICD-10 - J40) [facility] Other 03-09-2022 Hospital Discharge instructions* Instructions* Artis [...] be sent through Care Everywhere. * Contusion (Marshallese) * Knee Pain or Injury (Marshallese) * RICE: General Info (Marshallese) [facility] Work Phone: 1(650) 316-536702-24-2022 Evaluation note* Encounter Date Diagnosis Assessment Notes Treatment Notes Treatment Clinical Notes Apr, Oral thrush (ICD-10 - B37.0) Use medication as directed. Change toothbrush. Follow up with PCP if symptoms do not improve with treatment [facility] Other 02-14-2022 Evaluation note* Encounter Date Diagnosis [...] Patient care instructions given in writting by [facility] Care At Home document. [facility] Other 01-21-2022 Evaluation note* Encounter Date Diagnosis [...] Patient care instructions given in writting by [facility] Care At Home document. [facility] Other Evaluation + Plan note Future Appointments Appointment Date:04/23/2023 07:30:00 AM Scheduled Provider: Location:[facility] Diagnosis Closed head injury, initial encounter- Primary documented in this encounter [facility] Phone: evalzgpanr note* Diagnosis Tailbone injury, initial encounter- Primary documented in this encounter [facility] Phone: evalgehjft note* Diagnosis Contusion of left knee, initial encounter- Primary documented in this encounter [facility] Phone: evaludoyjo note* Diagnosis Onset Date Resolution Status Diarrhea acute GERD (gastroesophageal reflux disease) acute Lower abdominal pain acute Nausea acute [facility] Work Phone: Evaluation note* Diagnosis Onset Date Resolution Status Diarrhea acute Dysphagia acute GERD (gastroesophageal reflux disease) acute Lower abdominal pain acute Nausea acute [facility] Work Phone: Evaluation note* Diagnosis Acute pain of left knee- Primary Status post arthroscopic reconstruction of anterior cruciate ligament of left knee using quadriceps tendon autograft documented in this encounter [facility] Healthcare[facility]* Diagnosis Acute pain of [...] 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 [facility]* Diagnosis Second trimester ([facility]) state, incidental 15 weeks gestation of ([facility]) Screening, , for anatomic survey ([facility]) Encounter for anatomic survey documented in this encounter [facility]* Diagnosis 19 weeks gestation of ([facility]) Second trimester ([facility]) state, incidental documented in this encounter [facility]* Diagnosis Second trimester ([facility]) state, incidental 23 weeks gestation of ([facility]) Diabetes mellitus screening Screening for diabetes mellitus STD exposure Well woman exam with routine gynecological exam Routine gynecological examination Heart palpitations Palpitations documented [facility] encounter [facility]* Diagnosis Second trimester ([facility]) state, incidental 27 weeks gestation of ([facility]) Gabby's disease Chronic lymphocytic thyroiditis documented [facility]* Diagnosis Third trimester ([facility]) state, incidental 29 weeks gestation of ([facility]) Yeast infection documented in this encounter [facility]* Diagnosis Third trimester ([facility]) state, incidental 31 weeks gestation of ([facility]) documented in this encounter [facility] general Narrative - Reported* Type Description Date Medical History Hypothyroidism Medical History cardiovascular syncope Medical History chronic depression Surgical History left ovarian cyst Hospitalization History child [facility] Other Hospital course Narrative No data available for this section [facility]* Attachments The following attachments cannot be sent through Care Everywhere. * Head Injury: Closed: General Info (Marshallese) [facility] Phone: Hospital Discharge instructions* Attachments The following attachments cannot be sent through Care Everywhere. * Coccyx Injury ([place]ese) [facility] Phone: Hospital Discharge instructions No data available for this section [facility] No data available for this section [facility] Summary Purpose Family History No Family History Records Found Relationship Condition Age at Onset Recorded Date/T swapnil Not Specified Malignant neoplasm of throat Unknown Not Specified Malignant neoplasm of breast Unknown family member Malignant neoplasm of breast Unknown Malignant neoplasm of stomach Unknown father Gastroesophageal reflux disease Unknown Not Specified Disorder of thyroid Unknown Advance Directives No Advanced Directives Records Found Advance Directive Response Recorded Date/ Time Advance [...] content) DATE CREATED AUTHOR 09/05/2017 [facility] DATE CREATED AUTHOR AUTHOR'S ORGANIZ ATION 09/05/[address] [facility] DATE CREATED AUTHOR AUTHOR'S ORGANIZ ATION 10/28/2019 [facility] DATE CREATED AUTHOR AUTHOR'S ORGANIZ ATION 05/26/2021 [facility] DATE CREATED AUTHOR AUTHOR'S ORGANIZ ATION 05/10/2022 [facility] DATE CREATED AUTHOR AUTHOR'S ORGANIZ ATION 07/24/2022 [facility] Special[facility] DATE CREATED AUTHOR AUTHOR'S ORGANIZ ATION 05/15/2023 [facility] DATE CREATED AUTHOR AUTHOR'S ORGANIZ ATION 09/11/2023 [facility] DATE CREATED AUTHOR AUTHOR'S ORGANIZ ATION 02/08/2024 [facility] DATE CREATED AUTHOR AUTHOR'S ORGANIZ ATION 11/30/2024 [facility] DATE CREATED AUTHOR AUTHOR'S ORGANIZ ATION 12/26/2024 [facility] d[facility] Specialists EPIC Reason for Visit (unrecogniz ed section and content) Reason Comments Head Injury headbutted repeated 10 times today around 1255 Headache Nausea Reason Comments Other Pt had a chair pulle d out from under her while at work. Pt fell onto hard ground. Pain in lower back. Reason Comments Knee Pain left knee, was kicke d by resident at [facility] at approx 1930 Specialty Diagnoses / Procedures Referred By Neo amato Referred To Contact Physical Therapy Diagnoses Other specified postprocedural states Personal history of other diseases of the musculoskeletal system and connective tissue Procedures NH THERAPEUTIC PX 1/> AREAS EACH 15 MIN EXERCISES Myron Marroquin, DO [address] [place], [place] Pepe Kirby, PT [address] [place] [address] Referral ID Status Reason Start Date Expiration Date V isits Requested Visits Authorized [id number] Authorized 09/10/2023 03/08/2024 99 99 Reason Comments Follow-up Reason Comments Pain Reason Comments Amenorrhea Reason Comments Routine Visit Reason Comments Routine Visit Scheduled Active and Recently Administ ered Medications (unrecognized section and content) Medication Order 09/17/2020 09/18/2020 09/19/2020 acetaminophen (TYLENOL) tablet 650 mg (COMPLETED) 650 mg, Oral, ONCE, On 09/19/20 at 1615, For 1 dose, Maximum dose [...] Care Teams (unrecognized sec tion and content) Second Operator Relationship Specialty Start Date End Date Rosalie Payne MD [address] [place] [address] PCP - General 05/24/21 Second Operator Relationship Specialty Start Date End Date Rosalie Payne MD [address] [place] [phone] PCP - General Family Medicine 07/24/22 Team [...] Other Provider Active Start: September 02, 2023 Second Operator Relationship Specialty Start Date End Date Rosalie Payne MD [address] [place] [address] (Fax) PCP - General Family Medicine 07/24/22 Second Operator Relationship Specialty Start Date End Date Rosalie Payne MD [address] [place] [address] (Fax) PCP - General Family Medicine 07/24/22 Second Operator Relationship Specialty Start Date End Date Rosalie Payne MD [address] [place] [address] (Fax) PCP - General Family Medicine 07/24/22 Second Operator Relationship Specialty Start Date End Date Rosalie Payne MD [address] [place] [address] (Fax) PCP - General Family Medicine 07/24/22 Second Operator Relationship Specialty Start Date End Date Rosalie Payne MD [address] [place] [address] (Fax) PCP - General Family Medicine 07/24/22 Second Operator Relationship Specialty Start Date End Date Rosalie Payne MD [address] [place] [address] (Fax) PCP - General Family Medicine 07/24/22 Second Operator Relationship Specialty Start Date End Date Rosalie Payne MD [address] [place] [address] (Fax) PCP - General Family Medicine 07/24/22 Second Operator Relationship Specialty Start Date End Date Rosalie Payne MD [address] [place] [address] (Fax) PCP - General Family Medicine 07/24/22 Second Operator Relationship Specialty Start Date End Date Rosalie Payne MD [address] [place] [address] (Fax) PCP - General Family Medicine 07/24/22 Second Operator Relationship Specialty Start Date End Date Rosalie Payne MD [address] [place] [address] (Fax) PCP - General Family Medicine 07/24/22 Second Operator Relationship Specialty Start Date End Date Rosalie Payne MD [address] [place] [address] (Fax) PCP - General Family Medicine 07/24/22 Second Operator Relationship Specialty Start Date End Date Rosalie Payne MD [address] [place] [address] (Fax) PCP - General Family Medicine 07/24/22 Rosalie Payne MD [address] [place] [address] (Fax) PCP - [facility] 06/16/20 Second Operator Relationship Specialty Start Date End Date Rosalie Payne MD [address] [place] [address] (Fax) PCP - General Family Medicine 07/24/22 Rosalie Payne MD [address] [place] [address] (Fax) PCP - [facility] 06/16/20 Second Operator Relationship Specialty Start Date End Date Rosalie Payne MD [address] [place] [address] (Fax) PCP - General Family Medicine 07/24/22 Rosalie Payne MD [address] [place] [address] (Fax) PCP - [employer] 06/16/20 Second Operator Relationship Specialty Start Date End Date Rosalie Payne MD [address] [place] [address] (Fax) PCP - General Family Medicine 07/24/22 Rosalie Payne MD [address] [place] [address] (Fax) PCP - [facility] [employer] 06/16/20 Second Operator Relationship Specialty Start Date End Date Rosalie Payne MD [address] [place] [address] (Fax) PCP - General Family Medicine 07/24/22 Rosalie Payne MD [address] [place] [address] (Fax) PCP - [facility] 06/16/20 Second Operator Relationship Specialty Start Date End Date Rosalie Payne MD [address] [place] [address] (Fax) PCP - General Family Medicine 07/24/22 Rosalie Payne MD [address] [place] [address] (Fax) PCP - [facility] 06/16/20 Second Operator Relationship Specialty Start Date End Date Rosalie Payne MD [address] [place] [address] (Fax) PCP - General Family Medicine 07/24/22 Rosalie Payne MD [address] [place] [address] (Fax) PCP - [facility] [employer] 06/16/20 Second Operator Relationship Specialty Start Date End Date Rosalie Payne MD [address] [place] [address] (Fax) PCP - General Family Medicine 07/24/22 Rosalie Payne MD [address] [place] [address] (Fax) PCP - [facility] 06/16/20 Second Operator Relationship Specialty Start Date End Date Rosalie Payne MD [address] [place] [address] (Fax) PCP - General Family Medicine 07/24/22 Rosalie Payne MD [address] [place] [address] (Fax) PCP - [facility] 06/16/20 Second Operator Relationship Specialty Start Date End Date Rosalie Payne MD [address] [facility] [address] [place] [address] (Fax) PCP - General [facility] Medicine 07/24/22 Rosalie Payne MD [address] [facility] [address] [place] [address] (Fax) PCP [facility] 06/16/20 Second Operator Relationship Specialty Start Date End Date Rosalie Payne MD [address] [facility] [address] [place] [address] (Fax) PCP [facility] 07/24/22 Rosalie Payne MD [address] [place] [address] (Fax) PCP [facility] 06/16/20 Second Operator Relationship Specialty Start Date End Date Rosalie Payne MD [address] [place] [address] [place] [address] (Fax) PCP [facility] 07/24/22 Rosalie Payne MD [address] [place] [address] (Fax) [facility] 06/16/20 Goals (unrecognized section and content) [...] BE BASED ON THE PRIMARY CLINICAL RECORDS. [facility] provides no warranty or guarantee of the accuracy or completeness of information in this document.
[2024-12-26 09:09] LABS: Thyroid Stimulating Hormone 0.131 uIU/mL (0.358-3.740)
== END 2024-12-26 08:08 | disposition home or self-care (01) ==
LOC: LAB 08:07
PROVIDERS: PCP Family Medicine; Visit Provider Obstetrics & Gynecology
DX: E06.3 Autoimmune thyroiditis (principal)
CPT/HCPCS: 36415; 84443

== ENCOUNTER 2024-12-26 08:51 | Outpatient (OUT) | payer BC, SELFPAY ==
--- OUTSIDE RECORDS SUMMARY | 2024-12-23 14:00 | XMS_ITS | Encounter Summary ---
Author Organization [facility] Address [address] [place] [address] Care Team Providers Care Factorer Name Role Phone Danny Schuler MD Primary Care Provider [phone] Danny Schuler MD Unavailable [phone] Reason for Visit * Reason Comments Routine Visit Encounter Details Date Type Department Care Team (Late Contact Info) Description 12/23/2024 2:00 PM EDT Routine [facility] [address] [place] [address] Jessica Steen, [place] [address] [address] Third trimester ([facility]); 31 weeks gestation of ([facility]) Social History Tobacco Use Types Packs/Day Years [...] How often do you attend chur or methodist services? More than 4 times per year [...] medical care, and heating? Somewhat hard 12/11/2022 [facility] - Occupational Stress [...] place to sleep or slept in a half-way (including now)? No 12/11/2022 Education Answer Date [...] Sign Reading Time Taken Comments Blood Pressure 110/70 12/23/2024 1:57 PM EDT Pulse - - Temperature - - Respiratory Rate - - Oxygen Saturation - - Inhaled Oxygen Concentration - - Weight 77.7 kg (171 lb 6.4 oz) 12/23/2024 1:57 P M EDT Height - - Body Mass Index 29.42 02/26/2024 3:41 PM EST documented in this [...] Left 2019 OVARIAN CYST REMOVAL Left 05/20/2020 [facility] VAGINAL DELIVERY REVIEW OF SYSTEMS Review [...] nursing note reviewed. Exam conducted with a food or baggage handling rampman present. Vitals: Estimated body mass index is 29.42 kg/m?? as calculated from the following: Height as of 02/26/24: 5' 4 . Weight as of this encounter: 171 lb 6.4 oz. BP: 110/70 Patient's last menstrual period was 05/16/2024. ASSESSMENT & PLAN ICD-10-CM 1. Third trimester ([facility]) Z34.93 2. 31 weeks gestation of ([facility]) Z3A.31 POCT urinalysis dipstick manually resulted Return [...] Care Team (Late st Contact Info) Description 01/05/2025 1:00 PM EDT Routine [facility] [address] [place] [id number] Doc Thomas DO [address] [address] documented as of this encounter Procedures Procedure Name Priority Date/Time Associated Diagnosis Comments POCT URINALYSIS DIPSTICK Routine 12/23/2024 2:01 PM EDT 31 weeks gestation of ([facility]) documented in this encounter Results * (ABNORMAL) POCT urinalysis dipstick manually resulted (12/23/2024 2:01 PM EDT) Color, UA Yellow Clarity, UA Clear Glucose, UA 1+ Negative - 2000(110) ++++ mg/dL Bilirubin, UA Negative Negative - 4(70) +++ mg/dL Ketones, UA Negative Negative - 160(16) ++++ mg/dL Spec Grav, UA 1.015 1 - 1.03 Blood, UA Negative Negative - 50 Randall/mcL pH, UA 6.0 5 - 9 Protein, UA Negative Negative - 2000(20) ++++ mg/dL Urobilinogen, UA 2.0 0.2 - 12 mg/dL Leukocytes, UA Trace Negative - 500+++ Rick/mcL Nitrite, UA Negative Negative - Positive Urine 12/23/2024 2:01 PM EDT us Jessica Steen SAND BUFFER POINT OF CARE TEST ENTER/EDIT ORDERABLES Final Result documented in this encounter Visit Diagnoses Diagnosis Third trimester ([facility]) state, incidental 31 weeks gestation of ([facility]) documented in this encounter Care Teams Factorer Relationship Specialty Start Date End Date Danny Schuler MD [address] [address] PCP - General Family Medicine 07/24/22 Danny Schuler MD [address] [address] PCP - Ziggy Richard 06/16/20 documented as of this encounter
--- OUTSIDE RECORDS SUMMARY | 2024-12-26 08:52 | XMS_ITS | Encounter Summary ---
Author Organization [facility] Address [address] [place] [address] Care Team Providers Care Stone Mason Name Role Phone Danny Schuler MD Primary Care Provider [phone] Danny Schuler MD Unavailable [phone] Encounter Details Date Type Department Care Team (Late st Contact Info) Description 11/06/2024 Orders Only [facility] [address] [place] [id number] Coretta Cardenas LPN [address] [place] [id number] Social History Tobacco Use Types Packs/Day Years [...] How often do you attend chur or mandaen services? More than 4 times per year 12/11/2022 Do you belong to any clubs o r organizations such as muslim groups, unions, fraternal or athletic groups, or [...] Somewhat hard 12/11/2022 [facility] Health - Occupational Stress Questionnaire Answer Date [...] [address] [place] [address] Doc Thomas DO [address] [facility] [address] [place], [place] [id number] documented as of this encounter Procedures Procedure Name Priority Date/Time Associated Diagnosis Comments PAP SMEAR Routine 10/28/2024 12:00 AM EDT documented in this encounter Results * Pap Smear (10/28/2024 12:00 AM EDT) Swab Cervical swab / Unknown us William [facility] CYTOLOGY ORDERABLES Final Result EXTERNAL LAB documented in this encounter Visit Diagnoses Not on filedocumented in this encounter Care Teams Stone Mason Relationship Specialty Start Date End Date Danny Schuler MD [address] [facility] 100 [place] [address] PCP - General Family Medicine 07/24/22 Danny Schuler MD 112 [facility] 100 [place] [address] PCP - Ziggy Richard 06/16/20 documented as of this encounter
--- OUTSIDE RECORDS SUMMARY | 2024-12-26 08:52 | XMS_ITS | Encounter Summary ---
Author Organization [facility] Address [address] [place] [address] Care Team Providers Care Watermaster Name Role Phone Danny Schuler MD Primary Care Provider [phone] Danny Schuler MD Unavailable [phone] Encounter Details Date Type Department Care Team (Late st Contact Info) Description 04/25/2023 Abstract [facility] [address] [place] [address] Remy Rojas DO [address] [place] [address] Social History Tobacco Use Types Packs/Day Years [...] often do you attend chur ch or anabaptism services? More than 4 times per year [...] medical care, and heating? Somewhat hard 12/11/2022 [facility] Health - Occupational Stress Questionnaire Answer Date [...] 01/05/2025 1:00 PM EDT Routine [facility] [address] [place] [address] Doc Thomas DO [address] [facility] [place] [address] documented as of this encounter Visit Diagnoses Not on filedocumented in this encounter Care Teams Watermaster Relationship Specialty Start Date End Date Danny Schuler MD [address] [facility] [address] [place] [address] PCP - General Family Medicine 07/24/22 Danny Schuler MD [address] [address] PCP - [place] [employer] 06/16/20 documented as of this encounter
--- OUTSIDE RECORDS SUMMARY | 2024-12-26 08:52 | XMS_ITS | Encounter Summary ---
Author Organization [facility] Address [address] [place] [address] Care Team Providers Care Automotive Quality Manager Name Role Phone Danny Schuler MD Primary Care Provider Danny Schuler MD Unavailable [phone] Encounter Details Date Type Department Care Team (Late st Contact Info) Description 02/09/2023 Abstract [facility] [address] [place] [address] Bisi Richard NP Social History Tobacco Use [...] often do you attend chur ch or christian services? More than 4 times per year 12/11/2022 Do you belong to any clubs o r organizations such as faith groups, unions, fraternal or athletic groups, or [...] heating? Somewhat hard 12/11/2022 [facility]at ional Health - Occupational [...] place to sleep or slept in a retirement (including now)? No 12/11/2022 Education Answer Date [...] 01/05/2025 1:00 PM EDT Routine [facility] [address] [facility] [place] [address] Doc Thomas DO [address] [facility] [place] [address] documented as of this encounter Visit Diagnoses Not on filedocumented in this encounter Care Teams Automotive Quality Manager Relationship Specialty Start Date End Date Danny Schuler MD [address] [place] [address] PCP - General Family Medicine 07/24/22 Danny Schuler MD [address] [address] PCP - [place] [employer] 06/16/20 documented as of this encounter
--- OUTSIDE RECORDS SUMMARY | 2024-12-26 08:52 | XMS_ITS | Encounter Summary ---
Author Organization [facility] Address [address] [place] [address] Care Team Providers Care [employer] Name Role Phone Danny Schuler MD Primary Care Provider [phone] Danny Schuler MD Unavailable [phone] Encounter Details Date Type Department Care Team (Late st Contact Info) Description 09/02/2023 Orders Only [facility] Family Medicine [address] [facility] 100 [place] [address] Marcelle Espinosa DO [address] [facility] [place] [address] Social History Tobacco Use Types Packs/Day Years [...] How often do you attend chur or advent services? More than 4 times per year 12/11/2022 Do you belong to any clubs o r organizations such as yazdanism groups, unions, fraternal or athletic groups, or [...] medical care, and heating? Somewhat hard 12/11/2022 [facility] Health - Occupational Stress Questionnaire Answer Date [...] 01/05/2025 1:00 PM EDT Routine [facility] [address] [place] [address] Doc Thomas DO [address] [facility] [place] [address] documented as of this encounter Procedures Procedure Name Priority Date/Time Associated Diagnosis Comments COLONOSCOPY Routine 09/02/2023 2:27 PM EDT documented in this encounter Results * Colonoscopy (09/02/2023 2:27 PM EDT) Anatomical Region Laterality Modality Endoscopy us Marcelle Espinosa DO ENDOSCOPY PROCEDURE ORDERABLES F inal Result documented in this encounter Visit Diagnoses Not on filedocumented in this encounter Care Teams [employer] [place] [employer] Relationship Specialty Start Date End Date Danny Schuler MD [address] [address] PCP - General Family Medicine 07/24/22 Danny Schuler MD [address] [address] PCP - Ziggy Richard 06/16/20 documented as of this encounter
--- OUTSIDE RECORDS SUMMARY | 2024-12-26 08:53 | XMS_ITS | Encounter Summary ---
Author Organization [facility] Address [address] [place] [address] Care Team Providers Care Director Of Pediatric Rehabilitation Name Role Phone Danny Schuler MD Primary Care Provider [phone] Danny Schuler MD Unavailable [phone] Encounter Details Date Type Department Care Team (Late st Contact Info) Description 07/28/2024 Abstract [facility] [address] [place] [address] [place] [id number] Janet Narayanan MA Social History Tobacco Use [...] often do you attend chur ch or holiness services? More than 4 times per year 12/11/2022 Do you belong to any clubs o r organizations such as evangelical groups, unions, fraternal or athletic groups, or [...] medical care, and heating? Somewhat hard 12/11/2022 [facility] [place] of Occupat ional Health - Occupational Stress [...] Routine [facility] [address] [facility] [address] [address] Doc Thomas DO [address] [facility] [place] [address] documented as of this encounter Visit Diagnoses Not on filedocumented in this encounter Care Teams Director Of Pediatric Rehabilitation Relationship Specialty Start Date End Date Danny Schuler MD 112 [facility] 100 [place] [address] PCP - General Family Medicine 07/24/22 Danny Schuler MD [address] [place] [address] PCP - [place] [employer] 06/16/20 documented as of this encounter
--- OUTSIDE RECORDS SUMMARY | 2024-12-26 08:53 | XMS_ITS | Clinical Summary ---
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 Name Role Phone Danny Payne MD Primary Care Provider [phone] Danny Payne MD Unavailable [phone] Allergies Active Allergy Reactions Criticality Noted Date Comments Azithromycin Hives 09/19/2020 Other Reaction(s): hives Latex Rash Low 09/19/2020 Other Reaction(s): Unknown Midodrine 12/10/2022 Other Reaction(s): body numbness Medications ondansetron (Zofran) 4 MG tabletIndications:N ausea and vomiting in ([facility]) Take 1 tablet (4 mg) by mouth every 6 (six) hours if needed for nausea or vomiting for up to 30 doses Take 1 tablet by mouth every 6 hours as needed for nausea. 30 tablet 12/24/19 25 Active iron polysaccharides (ProFe) 391.3 (180 Fe) MG capsuleIndications: Low hemoglobin Take 1 capsule (391.3 mg) by mouth Daily 30 capsule 3 11/06/19 25 025 ondansetron (Zofran) 4 MG tabletIndications:N ausea and vomiting in ([facility]) Take 1 tablet (4 mg) by mouth every 6 (six) hours if needed for nausea or vomiting for up to 30 doses Take 1 tablet by mouth every 6 hours as needed for nausea. 30 tablet 3 11/20/19 25 025 Discontinu ed(Reorder ) terconazole (Terazol 7) 0.4 % vaginal creamIndications:Ye ast infection Insert 1 applicator into the vagina at bedtime for 7 days 45 g 12/02/19 025 fluconazole (Diflucan) 150 MG tabletIndications:Y east infection Take 1 tablet (150 mg) by mouth 1 (one) time for 1 dose Repeat in 7 days if symptoms persist. 2 tablet 12/10/19 025 Active Problems Problem Noted Date Diagnosed Date [...] Encounters Date Type Department Care Team Description 12/23/2024 2:00 PM EDT Routine [facility] [address] [place] [address] [place] [address] Jessica Steen, [place] Third trimester ([facility]); 31 weeks gestation of ([facility]) 12/23/2024 Refill [facility] [place] [address] Azalea Schmitz MA Nausea and vomiting in ([facility]) 12/23/2024 Bamboo flowsheet [facility] [address] [place] [address] Jessica Steen, GEORG[place] 12/09/2024 2:00 PM EDT Routine [facility] [address] [place] [address] Sintia Thomas, Third trimester ([facility]); 29 weeks gestation of ([facility]); Yeast infection 12/09/2024 Bamboo flowsheet [facility] [address] [place] [address] Sintia Thomas DO 12/01/2024 Telephone [facility] [address] [place] [address] Azalea Schmitz MA 11/25/2024 1:50 PM EDT Routine [facility] [address] [place] [address] Jessica Steen, [place] Second trimester ([facility]); 27 weeks gestation of ([facility]); 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 Bamboo flowsheet [facility] [address] [place] [address] Jessica Steen, [place] 11/24/2024 Clinisync Result Encounter NOM[facility] External Department Unsolicited Provider, Generic External Data 11/19/2024 Telephone [facility] [address] [place] [address] Janet Narayanan MA 11/12/2024 Clinisync Result Encounter NOM[facility] External Department Unsolicited Provider, Generic External Data 11/06/2024 Orders Only [facility] [address] [place] [address] Coretta Cardenas LPN 11/05/2024 Telephone [facility] [address] [place] [address] Azalea Schmitz MA 11/04/2024 Telephone [facility] [address] [place] [address] Azalea Schmitz MA 11/03/2024 Clinisync Result Encounter NOMS External Department Unsolicited Provider, Generic External Data 11/03/2024 Telephone [facility] [address] [place] [address] Azalea Schmitz MA 10/28/2024 2:30 PM EDT Routine [facility] [address] [place] [address] Pretty Chaidez PA Second trimester ([facility]); 23 weeks gestation of ([facility]); Diabetes mellitus screening; STD exposure; Well woman exam with routine gynecological exam; Heart palpitations 10/28/2024 Clinisync Result Encounter NOMS External Department Unsolicited Provider, Generic External Data 10/28/2024 External Result Encounter NOM[facility] External Department Unsolicited Jessica Steen NP 10/28/2024 Bamboo flowsheet [facility] [address] [place] [address] Pretty Chaidez PA 10/06/2024 Clinisync Result Encounter NOM[facility] External Department Unsolicited Sintia Thomas DO 10/05/2024 Telephone [facility] [address] [place] [address] Azalea Schmitz MA 10/05/2024 Refill [facility] [address] [place] [address] Azalea Schmitz MA Nausea and vomiting during ([facility]) 09/30/2024 3:40 PM EDT Routine [facility] [address] [place] [address] Sintia Thomas DO 19 weeks gestation of ([facility]); Second trimester ([facility]) 09/30/2024 2:30 PM EDT Ancillary Procedure [facility] [address] [place] [address] Screening, , for anatomic survey ([facility]) 09/28/2024 Clinisync Result Encounter [facility]OM[facility] External Department Unsolicited Provider, Generic External Data from Last 3 Months Immunizations Immunization Administration [...] Mother's Brother Alive Mother's Sister Alive Other SORTER LUMBER STRAIGHTENER and Kavin POT S Paternal Grandfather . [...] How often do you attend chur or buddhism services? More than 4 times per year 12/11/2022 Do you belong to any clubs o r organizations such as temple groups, unions, fraternal or athletic groups, or [...] medical care, and heating? Somewhat hard 12/11/2022 [facility] [place] of Occupat ional Health - Occupational Stress [...] place to sleep or slept in a long term (including now)? No 12/11/2022 Education Answer Date [...] Pressure 110/70 12/23/2024 1:57 PM EDT Pulse 88 02/19/2024 3:26 PM EST Temperature 36.4 C (97.5 F) 05/03/2023 11:22 AM EST Respiratory Rate - - Oxygen Saturation 98% 02/19/2024 3:26 PM EST Inhaled Oxygen Concentration - - Weight 77.7 kg (171 lb 6.4 oz) 12/23/2024 1:57 P M EDT Height 162.6 cm (5' 4 ) 02/26/2024 3:41 PM EST Body Mass Index 29.42 02/26/2024 3:41 PM EST Plan of Treatment Upcoming Encounters Date Type Department Care Team (Late st Contact Info) Description 01/05/2025 1:00 PM EDT Routine [facility] [address] [place] [address] Sintia Thomas DO [address] [facility] [address] [place] [address] Health Maintenance Due Date Last Done Comments Influenza Vaccine (#1) 2025 Postp oned from 11/16/2024 (Patient Refused) Procedures Procedure Name Priority Date/Time Associated Diagnosis Comments POCT URINALYSIS DIPSTICK Routine 12/23/2024 2:01 PM EDT 31 weeks gestation of ([facility]) POCT URINALYSIS DIPSTICK Routine 12/09/2024 2:14 PM EDT Third trimester ([facility]) POCT URINALYSIS DIPSTICK Routine 11/25/2024 3:33 PM EDT Second trimester ([facility]) CA ECHO DOPPLER COMPLETE 11/24/2024 4:39 PM EDT ECG 12-LEAD 11/12/2024 12:06 PM EDT ALL THYROID STIM HORMONE Routine 11/03/2024 4:00 PM EDT GLUCOSE 1 HOUR Routine 11/03/2024 4:00 PM EDT ALL CBC WITH AUTO DIFF Routine 11/03/2024 4:00 PM EDT RECURRENT VAGINITIS (HTRX) Routine 10/28/2024 4:48 PM EDT POCT URINALYSIS DIPSTICK Routine 10/28/2024 2:43 PM EDT Second trimester ([facility]) IGP,APTIMA HPV,AGE GDLN Routine 10/28/2024 2:25 PM EDT PAP SMEAR Routine 10/28/2024 12:00 AM EDT US OB CERVICAL LENGTH 10/06/2024 2:26 PM EDT POCT URINALYSIS DIPSTICK Routine 09/30/2024 3:31 PM EDT 19 weeks gestation of ([facility]) Second trimester ([facility]) US OB 14+ WEEKS ANATOMY SCAN Routine 09/30/2024 3:22 PM EDT Screening, , for anatomic survey ([facility]) ALL THYROID STIM HORMONE Routine 09/28/2024 3:58 PM EDT from Last 3 Months Results * (ABNORMAL) POCT urinalysis dipstick manually resulted (12/23/2024 2:01 PM EDT) Only the most recent of5 resultswithin the time period is included. Color, [...] - Positive Urine 12/23/2024 2:01 PM EDT Jessica Steen NP POINT OF CARE TEST ENTER/EDIT ORDERABLES Final Result * CA ECHO DOPPLER COMPLETE (11/24/2024 4:39 PM EDT) Anatomical Region Laterality Modality Other 11/24/2024 4:39 PM EDT Narrative 11/24/2024 4:40 PM EDT [address] [address] Cardiology Report Signed Patient: ALETA CASTRO MR#: [id number] : 2000 Acct:[id number] Age/Sex: 24 / F ADM Date: 11/12/24 Loc: CARD Attending Dr: Jessica Steen Ordering Physician: Jessica Steen Date of Service: 11/12/24 Procedure(s): CA echo doppler complete Accession Number(s): [id number] cc: Jessica Steen; DANNY PAYNE Patient Name: ALETA CASTRO MR#: [id number] : 2000 Exam Date: 11/12/2024 Ordering Doctor: JESSICA TSEEN [facility] ECHOCARD[facility] REPORT PROCEDURE: CA ECHO DOPPLER COMPLETE [...] Signed By: 11/24/24 1640 DD/ 1639 TD/TT: Hi Lift Operator: Procedure Note Radiology, Radiologist, MD - 11/24/2024 [place] [address] Cardiology Report Signed Patient: ALETA CASTRO NMR#: [id number] : 2000Acct:[id number] Age/Sex: Date: 11/12/24 Loc: CARD Attending Dr: Jessica Steen Ordering Physician: Jessica Steen Date of Service: 11/12/24 Procedure(s): CA echo doppler complete Accession Number(s): [id number] cc: Jessica Steen; DANNY PAYNE Patient Name: ALETA CASTRO MR#: [id number] : 2000 Exam Date: 11/12/2024 Ordering Doctor: JESSICA STEEN [facility] ECHOC[facility] REPORT PROCEDURE: CA ECHO DOPPLER COMPLETE INDICATIONS: Palpitations COMPARISON: None. DESCRIPTION: COMPLETE ECHOCARDIOGRAM Real-time transthoracic echocardiography with 2D, M-mode, spectral and color flow Dopplerperformed. QUALITY: Technical quality was good. LEFT VENTRICLE: Normal chamber size. Normal left ventricular wall thickness. LV EF: Global left ventricular systolic function is normal; visually estimated ejection fraction is 55-60 %. No significant wall motion abnormalities. DIASTOLIC: Normal diastolic function. ATRIAL SEPTUM: Inadequately seen. LEFT ATRIUM: Normal chamber size. RIGHT ATRIUM: Normal chamber size. RIGHT VENTRICLE: Normal chamber size. Normal right ventricularsystolic function. A moderator band (normal variant) is seen in the RV apex. TRICUSPID VALVE: Normal mobility and thickness. No stenosis withtrivial regurgitation. No evidence of pulmonary hypertension. RVSP 16mmHg. MITRAL VALVE: Normal mobility and thickness. No evidence of mitralvalve stenosis. There is no mitral annular calcification. Trivial mitral regurgitation. AORTIC VALVE: Normal trileaflet appearance. No visible sclerosis.Normal leaflet mobility. No evidence of aortic valve [...] 16:39 Dictated By: Davian Ruano M.D. Signed By:11/24/24 1640 DD/ 1639 TD/TT: Hi Lift Operator: us Generic External Data Provider [facility] Final Result * ECG 12-LEAD (11/12/2024 12:06 PM EDT) Anatomical Region Laterality Modality Other 11/12/2024 12:0 6 PM EDT Narrative 11/13/2024 1:34 [place] [address] Electrocardiograph Report Signed Patient: ALETA CASTRO MR#: [id number] : 2000 Acct:[id number] Age/Sex: 24 / F ADM Date: 11/12/24 Loc: CARD Attending Dr: Jessica Steen Ordering Physician: Jessica Steen Date of Service: 11/12/24 Procedure(s): ECG 12 lead Accession Number(s): [id number] cc: [facility] Test Date: 2024-11-12 Pat Name: ALETA CASTRO Department: Room: - Gender: Female 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 Signed By:11/13/24 1334 11/13/24 1334 DD/ 1206 TD/TT: Hi Lift Operator: Generic External Data Provider [facility] Final Result * GLUCOSE 1 HOUR (11/03/2024 4:00 PM EDT) GLUCOSE 1 HOUR 105 <130 mg/dL [facility] 11/03/2024 4:00 PM EDT 11/03/2024 4:01 PM EDT Narrative [facility] - 11/03/2024 6:33 PM EDT Jessica Steen WORKERS COMPENSATION ADMINISTRATOR LAB BLOOD ORDERABLES Final Re sult [facility] * ALL THYROID STIM HORMONE (11/03/2024 4:00 PM EDT) Only the most recent of2 resultswithin the time period is included. Pathologist [facility] THYROID STIMULATING HORMONE 0.658 0.358 - 3.740 uIU/mL [facility] 11/03/2024 4:00 PM EDT 11/03/2024 4:[address] [facility] - 11/03/2024 7:03 PM EDT us Sintia Thomas DO [facility] Final Result Performing Organization Address City/[facility]/ZIP Co de Phone Number [facility] * (ABNORMAL) ALL CBC WITH AUTO DIFF (11/03/2024 4:00 PM EDT) Pathologist [facility] TB WBC 6.6 4.0 - 11.0 10 3/uL [facility] TB RBC 3.34(L) 4.20 - 5.40 10 6/uL TBH TBH HGB 10.8(L) 12.0 - 16.0 g/dL TB TB HCT 31.2(L) 36.0 - 48.0 % TBH TBH MCV 93.4 81.0 - 99.0 fL TBH TBH MCH 32.3 26.7 - 34.0 pg TBH TBH MCHC 34.6 29.9 - 35.2 g/dL TB TBH RDW 12.7 11.0 - 15.0 % TBH TBH PLT 187 150 - 450 10 3/uL TBH TBH MPV 9.7 9.5 - 13.5 fL TBH NEUTROPHILS PERCENT AUTO 76.4(H) 43.0 - 75.0 % TBH LYMPHOCYTES PERCENT AUTO 15.0(L) 20.5 - 60.0 % TBH MONOCYTES PERCENT AUTO 7.7 1.7 - 12.0 % TBH TBH EO % 0.5(L) 0.9 - 7.0 % TBH BASOPHILS PERCENT AUTO 0.2 0.2 - 2.0 % TBH IMMATURE GRANULOCYTES PCT AUTO 0.2 0.0 - 0.5 % TBH NEUTROPHILS ABSOLUTE AUTO 5.0 1.4 - 6.5 10 3/uL TBH LYMPHOCYTES ABSOLUTE AUTO 1.0(L) 1.2 - 3.8 10 3/uL TBH MONOCYTES ABSOLUTE AUTO 0.5 0.3 - 0.8 10 3/uL TBH TBH EO # 0.0 0.0 - 0.7 10 3/uL TBH BASOPHILS ABSOLUTE AUTO 0.0 0.0 - 0.1 10 3/uL TBH IMMATURE GRANULOCYTES ABS AUTO 0.01 0.00 - 0.03 10 3/uL [facility] 11/03/2024 4:00 PM EDT 11/03/2024 4:01 PM EDT Narrative [facility] - 11/03/2024 4:26 PM EDT Jessica Steen NP [facility] Final Result [facility] * RECURRENT VAGINITIS (HTRX) (10/28/2024 4:48 PM EDT) [facility] ATOPOBIUM VAGINAE 0 19.961 - 24.689 ppm 10/30/2024 7:27 AM EDT [facility] ATOPOBIUM VAGINAE Not Detected 19.961 - 24.689 ppm 10/30/2024 7:27 AM EDT [facility] BVAB 2,3 (BACTERIAL VAGINOSIS ASSOCIATED BACTERIA 2, 3); MOBILUNCUS SPP 0 19.961 - 24.689 ppm 10/30/2024 7:27 AM EDT [facility]ERIAL VAGINOSIS ASSOCIATED BACTERIA 2, 3); MOBILUNCUS SPP Not Detected 19.961 - 24.689 ppm 10/30/2024 7:27 AM EDT [facility] RICKEY ALBICANS, PARAPSILOSIS, TROPICALIS 0 23.000 - 30.347 ppm 10/30/2024 7:27 AM EDT [facility] RICKEY ALBICANS, PARAPSILOSIS, TROPICALIS Not Detected 23.000 - 30.347 ppm 10/30/2024 7:27 AM EDT [facility] RICKEY GLABRATA 0 23.000 - 31.618 ppm 10/30/2024 7:27 AM EDT [facility] RICKEY GLABRATA Not Detected 23.000 - 31.618 ppm 10/30/2024 7:27 AM EDT [facility] RICKEY KRUSEI 0 23.000 - 30.873 ppm 10/30/2024 7:27 AM EDT [facility] RICKEY KRUSEI Not Detected 23.000 - 30.873 ppm 10/30/2024 7:27 AM EDT [facility] CHLAMYDIA TRACHOMATIS 0 23.000 - 31.586 ppm 10/30/2024 7:27 AM EDT [facility] CHLAMYDIA TRACHOMATIS Not Detected 23.000 - 31.586 ppm 10/30/2024 7:27 AM EDT [facility] GARDNERELLA VAGINALIS 0 19.961 - 24.689 ppm 10/30/2024 7:27 AM EDT [facility] GARDNERELLA VAGINALIS Not Detected 19.961 - 24.689 ppm 10/30/2024 7:27 AM EDT [facility] MEGASPHAERA (TYPES 1, 2) 0 19.961 - 24.689 ppm 10/30/2024 7:27 AM EDT [facility] MEGASPHAERA (TYPES 1, 2) Not Detected 19.961 - 24.689 ppm 10/30/2024 7:27 AM EDT [facility] NEISSERIA GONORRHOEAE 0 23.000 - 32.587 ppm 10/30/2024 7:27 AM EDT [facility] NEISSERIA GONORRHOEAE Not Detected 23.000 - 32.587 ppm 10/30/2024 7:27 AM EDT [facility] TRICHOMONAS VAGINALIS 0 23.000 - 31.995 ppm 10/30/2024 7:27 AM EDT [facility] TRICHOMONAS VAGINALIS Not Detected 23.000 - 31.995 ppm 10/30/2024 7:27 AM EDT [facility] MYCOPLASMA GENITALIUM 0 19.961 - 24.689 ppm 10/30/2024 7:27 AM EDT [facility] MYCOPLASMA GENITALIUM Not Detected 19.961 - 24.689 ppm 10/30/2024 7:27 AM EDT [facility] Tissue 10/28/2024 4:48 PM EDT 10/30/2024 2:18 AM EDT Jessica Steen NP LAB BLOOD ORDERABLES Final Re sult [facility] [address] [address] * IGP,APTIMA HPV,AGE GDLN (10/28/2024 2:25 PM EDT) AGE GDLN ACOG TESTING Note . [facility] Comment: TESTS RESULT FLAG UNITS REF RANGE LAB Clinician Provided Cytology Information Source.............Endocervix No. of containers..01 ThinPrep Vial Age Algo ACOG Yaa... -15 04 FLAG LEGEND: L-Low Normal,H-High Normal,LL-Alert Low,HH-Alert High <-Panic Low,>-Panic High,A-Abnormal,AA-Critical Abnormal Performed at: 01 =[facility] [address] [place] [address] Ludy Hector MD, IGP, RFX APTIMA HPV ASCU Note . [facility] Comment: TESTS RESULT FLAG UNITS REF RANGE LAB DIAGNOSIS: 02 NEGATIVE FOR INTRAEPITHELIAL LESION OR MALIGNANCY. THIS SPECIMEN WAS RESCREENED PART OF OUR CONTENT STRATEGY LEAD PROGRAM. Specimen adequacy: 02 Satisfactory for evaluation. No endocervical component is identified. Performed by: 02 Brionna Mello, Credit Representative ([facility]) QC reviewed by: 02 Polina Simons, Credit Representative . 02 Note: Note 02 The Pap [...] <-Panic Low,>-Panic High,A-Abnormal,AA-Critical Abnormal Performed at: [address] [address] Ludy Hector MD, Performed at: =G - [facility] [address] [id number] Behavioral Health Assistant: Ludy Hector MD, Phone: [phone] Performed at: - [facility] [id number] Behavioral Health Assistant: Ludy Hector MD, Phone: [phone] 10/28/2024 2:25 PM EDT 10/28/2024 9:48 PM EDT Narrative [facility] - 11/03/2024 11:08 AM EDT BRUSH-SPATULA ENDOCERVIX Pretty Chaidez PA LAB BLOOD ORDERABLES Final Resul t Performing Organization Address [facility]/ZIP Co de Phone Number [facility] * Pap Smear (10/28/2024 12:00 AM EDT) Swab Cervical swab / Unknown William Nurse Noms [facility] Ob LAB CYTOLOGY ORDERABLES Final Result Performing Organization Address [facility] Co de Phone Number EXTERNAL LAB * US OB CERVICAL LENGTH (10/06/2024 2:26 PM EDT) Anatomical Region Laterality Modality Other 10/06/2024 2:26 PM EDT Narrative 10/06/2024 2:28 [place] [address] Ultrasound Report Signed Patient: ALETA CASTRO MR#: [id number] : 2000 Acct:[id number] Age/Sex: 24 / F ADM Date: 10/06/24 Loc: US Attending Dr: Sintia Thomas D.O. Ordering Physician: Sintia Thomas D.O. Date of Service: 10/06/24 Procedure(s): US OB cervical length Accession Number(s): [id number] cc: Sintia Thomas D.O.; DANNY PAYNE [address] [address] Patient Name: ALETA CASTRO MRN: [facility]:[id number] date: 2000 Sex: F Assigned Patient Location: US Current Patient Location: US Accession/Order Number: [id number] Exam Date: 10/06/2024 14:25 Report Date: 10/06/2024 [...] Jr., D.O. 10/06/2024 2:26 PM Dictation Location: [place] [address] Electronically authenticated by: [id number] Y Date: 10/06/2024 14:26 Dictated By: Jermaine Nguyễn M.D. Signed By: 10/06/24 1428 DD/ 25 TD/TT: Hi Lift Operator: Procedure Note Radiology, Radiologist, MD - 10/06/2024 [place] [address] Ultrasound Report Signed Patient: ALETA CASTRO NMR#: [id number] : 2000Acct:[id number] Age/Sex: 24 / FADM Date: 10/06/24 Loc: US Attending Dr: Sintia Thomas D.O. Ordering Physician: Sintia Thomas D.O. Date of Service: 10/06/24 Procedure(s): US OB cervical length Accession Number(s): [id number] cc: Sintia Thomas D.O.; DANNY PAYNE [address] [address] Patient Name: ALETA CASTRO MRN: [id number] date: 2000 Sex: F Assigned Patient Location: US Current Patient Location: US Accession/Order Number: [id number] Exam Date: 10/06/2024 14:25 Report Date: 10/06/2024 [...] Jr., D.O. 10/06/2024 2:26 PM Dictation Location: [place] [address] Electronically authenticated by: [id number] Y Date: 4:26 Dictated By: Jermaine Nguyễn M.D. 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
--- OUTSIDE RECORDS SUMMARY | 2024-12-26 08:53 | XMS_ITS | Clinical Summary ---
Author Organization [facility] Address [address] [place] [address] Care Team Providers Care Harvest Contractor Name Role Phone Unavailable Primary Care Provider Unavailabl e Allergies Active Allergy Reactions Criticality Noted Date Comments Azithromycin Hives 09/19/2020 Other Reaction(s): hives Latex Rash Low 09/19/2020 Other Reaction(s): Unknown Midodrine Unknown 12/10/2022 Other Reaction(s): body numbness Medications ondansetron ODT (Zofran-ODT) 4 mg disintegrating tablet Take 4 mg by mouth if needed. Active no.37/iron/folic acid (PRENATA ORAL) Take by mouth in the morning. Active polysaccharide iron complex 180 mg iron capsule Take 391.3 mg by mouth in the morning. 12/06/19 Active Problems Problem Noted Date Diagnosed Date 28 weeks gestation of 11/29/2024 Abnormal bleeding in menstrual cycle 02/19/2024 Status [...] calories 2022 Postural orthostatic tachycardia syndrome (POTS) 12/14/2018 Hypothyroid 05/30/2018 Syncope and collapse 05/30/2018 Comments Yes Encounters Date Type Department Care Team Description 11/27/2024 3:20 PM EDT Office Visit [facility] [address] [place] [id number] Bibi Singh MD Syncope and collapse (Primary Dx); Neurocardiogenic syncope; 28 weeks gestation of ; Gabby's disease from Last 3 Months Family History Relation Name Status Comments Father Alive Mother Alive Social History Tobacco Use Types Packs/Day Years Used Date Smoking Tobacco: Former Cigarettes Smokeless Tobacco: Former Tobacco Cessation:Counseling Given: Not Answered Comments:Quite 6 month ago Alcohol Use Standard Drinks/Week Comments Not Currently 0 (1 standard drink = 0.6 oz pur e alcohol) [place] Safety & Environment Answer Date Rec orded Fear of Current or Ex-Partner Not on file Emotionally Abused Not on file 05/09/2023 Physically Abused Not on file 05/09/2023 Sexually Abused Not on file 05/09/2023 Physically or Sexually Abused Not on file Comments Yes Sex and Gender Information Value Date Recorded Sex Assigned at Female 11/23/2024 2:10 PM EDT Legal Sex Female 11:55 PM EDT Gender Identity Female 11/23/2024 2:10 PM EDT Sexual Orientation Heterosexual or Straight 10/2024 2:10 PM EDT Last Filed Vital Signs Vital Sign Reading Time Taken Comments Blood Pressure 116/80 11/27/2024 4:02 PM EDT Pulse 78 11/27/2024 4:02 PM EDT Temperature - - Respiratory Rate - - Oxygen Saturation 99% 11/27/2024 4:02 PM EDT Inhaled Oxygen Concentration - - Weight 78 kg (172 lb) 11/27/2024 4:02 PM EDT Height 165.1 cm (5' 5 ) 11/27/2024 4:02 PM EDT Body Mass Index 28.62 11/27/2024 4:02 PM EDT Plan of Treatment Health Maintenance Due Date Last Done Comments IPV Vaccines (4 of 4 - 4-dose series) 2003 09/11/2000, 1999, 1999 Depression Screening 2011 Varicella Vaccines (2 of 2 - 2-dose childhood series) 11/23/2011 08/31/2011 HPV Vaccines (1 - 3-dose series) 06/09/2014 Adult Tetanus 06/09/2021 08/31/2011 COVID-19 Vaccine ( season) 2024 Influenza Vaccine (#1) 2024 Pap Smear 10/29/2027 10/28/2024 Zoster Vaccines (1 of 2) 06/09/2049 08/31/2011 Pneumococcal Vaccine: Pediatrics (0 to 5 Years) and At-Risk Patients (6 to 64 Years) Aged Out 03/26/2000 No longer eligible based on patient's age to complete this topic HIB Vaccines Completed 09/11/2000, 08/17, 03/26/2000, Additional history exists Meningococcal Vaccine Completed 11/12/2016 Meningococcal B Vaccine Aged Out No l onger eligible based on patient's age to complete this topic Rotavirus Vaccines Aged Out No longer eligible based on patient's age to complete this topic Insurance [facility]
--- OUTSIDE RECORDS SUMMARY | 2024-12-26 08:53 | XMS_ITS | Encounter Summary ---
Author Organization [facility] Address [address] [place] [address] Care Team Providers Care Residential Real Estate Appraiser Name Role Phone Danny Schuler MD Primary Care Provider Danny Schuler MD Unavailable [phone] Reason for Visit * Reason Onset Date Comments Med Refill 12/23/2024 Encounter Details Date Type Department Care Team (Late st Contact Info) Description 12/23/2024 Refill [facility] [address] [place] [address] Azalea Schmitz MA [address] [facility] [place] [address] Nausea and vomiting in ([facility]) Social History Tobacco Use Types Packs/Day Years [...] any clubs o r organizations such as confucianist groups, unions, fraternal or athletic groups, or [...] medical care, and heating? Somewhat hard 12/11/2022 [facility] - Occupational Stress Questionnaire Answer [...] place to sleep or slept in a mcc (including now)? No 12/11/2022 Education Answer Date [...] PM EDT Routine [facility] [address] [place] [address] Doc Thomas DO [address] [facility] [place] [address] documented as of this encounter Visit Diagnoses Diagnosis Nausea and vomiting in ([facility]) Unspecified vomiting of , unspecified as to episode of care documented in this encounter Care Teams Residential Real Estate Appraiser Relationship Specialty Start Date End Date Danny Schuler MD [address] [facility] [address] [place] [address] PCP - General Family Medicine 07/24/22 Danny Schuler MD [address] [facility] [address] [place] [address] PCP - [place] [employer] 06/16/20 documented as of this encounter
--- OUTSIDE RECORDS SUMMARY | 2024-12-26 08:53 | XMS_ITS | Encounter Summary ---
Author Organization [facility] Address [address] [place] [address] Care Team Providers Care Wireworker Name Role Phone Danny Schuler MD Primary Care Provider Danny Schuler MD Unavailable [phone] Encounter Details Date Type Department Care Team (Late st Contact Info) Description 12/23/2024 Bamboo flowsheet [facility] [place] [facility] [address] [place] [address] Jessica Steen, SUPERVISOR GROWER [address] [facility] [place] [address] Social History Tobacco Use Types Packs/Day [...] How often do you attend chur or taoism services? More than 4 times per year 12/11/2022 Do you belong to any clubs o r organizations such as anabaptism groups, unions, fraternal or athletic groups, or [...] care, and heating? Somewhat hard 12/11/2022 [facility] - Occupational Stress Questionnaire Answer Date [...] place to sleep or slept in a nursing home (including now)? No 12/11/2022 Education Answer [...] PM EDT Routine [facility] [address] [place] [address] oDc Thomas DO [address] [facility] [place] [address] documented as of this encounter Visit Diagnoses Not on filedocumented in this encounter Care Teams Wireworker Relationship Specialty Start Date End Date Danny Schuler MD [address] [facility] [address] [place] [address] PCP - General Family Medicine 07/24/22 Danny Schuler MD [address] [place] [address] [address] [place] [address] PCP - [employer] 06/16/20 documented as of this encounter
--- OUTSIDE RECORDS SUMMARY | 2024-12-26 08:53 | XMS_ITS | Encounter Summary ---
Author Organization [facility] Address [address] [place] [address] Care Team Providers Care Junior Mechanical Engineer Name Role Phone Danny Schuler MD Primary Care Provider [phone] Danny Schuler MD Unavailable [phone] Encounter Details Date Type Department Care Team (Late st Contact Info) Description 07/29/2024 Abstract [facility] [address] [facility] [place] [id number] Doc Thomas DO [address] [facility] [address] [place], [facility] Social History Tobacco Use Types Packs/Day Years [...] How often do you attend chur or muslim services? More than 4 times per year 12/11/2022 Do you belong to any clubs o r organizations such as jew groups, unions, fraternal or athletic groups, or [...] medical care, and heating? Somewhat hard 12/11/2022 [facility] - Occupational Stress Questionnaire Answer Date [...] place to sleep or slept in a skilled nursing (including now)? No 12/11/2022 Education Answer Date [...] PM EDT Routine [facility] [address] [place] [address] Doc Thomas DO [address] [facility] [place] [address] documented as of this encounter Visit Diagnoses Not on filedocumented in this encounter Care Teams Junior Mechanical Engineer Relationship Specialty Start Date End Date Danny Schuler MD [address] [place] [address] PCP - General Family Medicine 07/24/22 Danny Schuler MD [address] [place] [id number] PCP - [employer] 06/16/20 documented as of this encounter
--- NOTE | 2024-12-26 08:54 | US_ITS ---
[address] [address] Patient Name: ALETA ELLINGTON MRN: [id number] date: 2000 Sex: F Assigned Patient Location: US Current Patient Location: Accession/Order Number: [id number] Exam Date: 12/26/2024 09:00 Report Date: 12/26/2024 11:31 At the request of: SINTIA MARIE DO Procedure: US OB growth Obstetric ultrasound for growth INDICATION: Gabby's disease FINDINGS: Single live anterior cephalic presentation longitudinal lie. Amniotic fluid index 12.4 cm between the gestational age fifth and 95th percentile. Largest pocket of fluid 5.1 cm. heart rate 1 52 bpm. motion documented by the back feeder plywood layup line.. Estimated weight 2093 g 71.4%. Gestation age 32 weeks and 0 days. Biparietal diameter 7.93 m. Head circumference 30.7 cm. Otherwise the 10.6 cm. Abdominal circumference 28.9 cm. Femur length 6.4 cm. US/US OB growth IMPRESSION: Single live intrauterine of approximately 30 weeks Impression dictated by: Deshaun Aguilar M.D. 12/26/2024 11:31 AM Dictation Location: [place] [address] Electronically authenticated by: [id number] Y Date: 12/26/2024 11:31
--- NOTE | 2024-12-26 08:54 | US_ITS ---
[address] [address] Patient Name: ALETA ELLINGTON MRN: [id number] date: 2000 Sex: F Assigned Patient Location: US Current Patient Location: Accession/Order Number: [id number] Exam Date: 12/26/2024 09:00 Report Date: 12/26/2024 11:19 At the request of: SINTIA MARIE DO Procedure: US OB BPP w non-stress Ultrasound biophysical profile INDICATION: Gabby's disease. COMPARISON: 10/06/2024 FINDINGS: LYNN 12.4 cm. 8/8 score biophysical profile. Fetus is cephalic position with heart rate 152 beats per minutes. US/US OB BPP w non-stress Impression: 8 out of 8 score biophysical profile. Impression dictated by: Deshaun Aguilar M.D. 12/26/2024 11:19 AM Dictation Location: [place] [address] Electronically authenticated by: [id number] Y Date: 12/26/2024 11:19
--- OUTSIDE RECORDS SUMMARY | 2024-12-26 08:54 | XMS_ITS | CCD ---
Author Organization [facility] ion [facility] Care Team Providers Care Cut To Length Operator Name Role Phone BECERRIL, DAVID P [...] Care Provider DAVID DOMINGUEZ Attending Unavailable ARTIS OYDER Attending Unavailable Sandeep Ramirez Unavailable Carlie Thomas [...] Care Provider Pocanaly, Myron Washburn Admitting Unavailable Pocos, Myron Washburn Referring Unavailable Pocos, Myron Washburn Attending Unavailable Pocos, Myron Washburn Referring Unavailable Pocos, Myron Washburn Attending Unavailable Pocanaly, Myron Washburn Admitting Unavailable MD Rosalie Payne Primary Care Provider [phone] DO Marcelle Patel Attending Provider [phone] Ly, Marcelle L Attending Unavailable Ly, Marcelle L Admitting Unavailable Rosalie Payne Primary Care Unavailable Rosalie Payne MD Primary Care Provider Rosalie Payne MD Primary Care Provider [phone] Rosalie Payne MD Unavailable GERMAINELESA Attending Unavailable WILLIAMDOC YOUNGBLOOD Attending Unavailable DMPRETTY TAPIA Attending Unavailable WILLIAM, DOC Attending Unavailable DMPRETTY TAPIA Attending Unavailable ENIOLUNA CAMPA Attending Unavailable WILLIAM, DOC Attending Unavailable LUNA STEEN Attending Unavailable PEPE KIRBY Attending Unavailable MYRON MARROQUIN Referring Unavailable ROSALIE PAYNE Attending Unavailable MYRON MARROQUIN Attending Unavailable Allergies Allergy Classification Reported Allergen(s) Allergy Type Date of Onset Reaction(s) Facility Latex (1 source) Latex Substance Allergy 1 [facility] Macrolides (antibiotic) (1 source) Azithromycin Drug Allergy 1 [facility] (20 sources) Azithromycin; Translations: [azithromycin] Drug Allergy 1 [facility] (11 sources) Latex; Translations: [Latex] Propensity to adverse reactions to drug 1 [facility] (1 source) Azithromycin Drug Allergy 0 [facility] Repository (1 source) natural latex rubber Drug allergy (disorder) [facility] Repository (2 sources) Banana Extract; Translations: [Banana] Drug Allergy Vomiting (disorder) [facility] (20 sources) Midodrine; Translations: [midodrine] Drug Allergy 3 Numbness [facility] (20 sources) Latex Allergy to substance 1 [facility] (1 source) Azithromycin Drug Allergy 4 [facility] Repository (1 source) Latex Drug allergy (disorder) 4 [facility] Repository Medications Current Medications Medication Drug Class(es) Dates Sig (Normalized) Sig (Original) [id number] 200 actuat albuterol 0.09 mg/actuat metered dose [...] MG tablet Indications: Nausea and vomiting in ([facility]) Take [...] mg by mouth daily 0 Active Citalopram Orchard bromide Active clotrimazole 10 mg oral lozenge [...] bone disease and musculoskeletal deformities (20 sources) Tamms Schlatter disease; 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 [...] UA Negative Negative - 4(70) +++ mg/dL [facility] Blood, UA Negative Negative - 50 Randall/mcL [facility] Clarity, UA Clear [facility] Color, UA Yellow [facility] Glucose, UA 1+ Negative - 1999(110) ++++ mg/dL [facility] Interpretation and review of laboratory results Abnormal [facility] Ketones, UA Negative Negative - 160(16) ++++ mg/dL [facility] Leukocytes, UA Trace Negative - 500+++ Rick/mcL [facility] Nitrite, UA Negative Negative - Positive [facility] pH, UA 6 5 - 9 [facility] Protein, UA Negative Negative - 2000(20) ++++ mg/dL [facility] Spec Grav, UA 1.015 1 - 1.03 [facility] Urobilinogen, UA 2.0 0.2 - 12 mg/dL [facility] Urinalysis macro (dipstick) panel (U)on 12-09-2024 Bilirubin, UA Negative Negative - 4(70) +++ mg/dL [facility] Blood, UA Negative Negative - 50 Randall/mcL [facility] Clarity, UA Clear [facility] Color, UA Yellow [facility] Glucose, UA Negative Negative - 1999(110) ++++ mg/dL [facility] Interpretation and review of laboratory results Abnormal [facility] Ketones, UA Negative Negative - 160(16) ++++ mg/dL [facility] Leukocytes, UA Positive Negative - 500+++ Rick/mcL [facility] Comment on above: 1+ Nitrite, UA Negative Negative - Positive [facility] pH, UA 7 5 - 9 [facility] Protein, UA Negative Negative - 1999(20) ++++ mg/dL [facility] Spec Grav, UA 1.01 1 - 1.03 [facility] Urobilinogen, UA 0.2 0.2 - 12 mg/dL [facility] Office Visiton 11-27-2024 Follow-up visit [id number] Yung Castro er N 2000 F Date Provider Department Center 11/27/2024 [id number]-JLQIIALESA SINGH TRES [place] Family History Family Status - Relation Status Age at Mother Alive Father Alive Level of Service:12619 [place] OFFICE/OUTPATIENT NEW LOW MDM 30 MINUTES Reason for Visit and Comments: New Patient [632] - New patient here today to establish care with cardiology Syncope [506] POTS [Other] Positive tilt table [Other] 6 months [Other] Normal [facility] Urinalysis macro (dipstick) panel (U)on 11-25-2024 Bilirubin, UA Positive Negative - 4(70) +++ mg/dL [facility] Comment on above: 1+ Blood, UA Negative Negative - 50 Randall/mcL [facility] Clarity, UA Clear [facility] Color, UA Yellow [facility] Glucose, UA Positive Negative - 1999(110) ++++ mg/dL [facility] Comment on above: Trace Interpretation and review of laboratory results Abnormal [facility] Ketones, UA Negative Negative - 160(16) ++++ mg/dL [facility] Leukocytes, UA Negative Negative - 500+++ Rick/mcL [facility] Nitrite, UA Negative Negative - Positive [facility] pH, UA 6 5 - 9 [facility] Protein, UA Positive Negative - 2000(20) ++++ mg/dL [facility] Comment on above: Trace Spec Grav, UA 1.03 1 - 1.03 [facility] Urobilinogen, UA 0.2 0.2 - 12 mg/dL [facility] CA ECHO DOPPLER COMPLETEon 0 11-24-2024 [place] [address] Cardiology Report Signed Patient: ALETA CASTRO MR#: [id number] : 2000 Acct:[id number] Age/Sex: 24 / F ADM Date: 11/12/24 Loc: CARD Attending Dr: Luna Steen Ordering Physician: Luna Steen Date of Service: 11/12/24 Procedure(s): CA echo doppler complete Accession Number(s): [id number] cc: Luna Steen; ROSALIE PAYNE Patient Name: ALETA CASTRO MR#: [id number] : 2000 Exam Date: 11/12/2024 Ordering Doctor: LUNA STEEN [employer] ECHOCARDIOGRAM REPORT PROCEDURE: CA ECHO DOPPLER COMPLETE [...] 11/24/2024 at 16:39 (more content not included)... [facility] Radiology, Radiologi MD cecelia - 11/24/2024 [place] [address] Cardiology Report Signed Patient: ALETA CASTRO MR#: [id number] : 2000 Acct:[id number] Age/Sex: 24 / F ADM Date: 11/12/24 Loc: CARD Attending Dr: Luna Steen Ordering Physician: Luna Steen Date of Service: 11/12/24 Procedure(s): CA echo doppler complete Accession Number(s): [id number] cc: Luna Steen; ROSALIE PAYNE Patient Name: ALETA CASTRO MR#: [id number] : 2000 Exam Date: 11/12/2024 Ordering Doctor: LUNA STEEN [employer] ECHOCARDIOGRAM REPORT PROCEDURE: CA ECHO DOPPLER COMPLETE [...] Signed By: 11/24/24 1640 DD/ 1639 TD/TT: Assembling Motor Builder: [facility] Radiology Study observation (narrative) [facility] CA ECHO DOPPLER COMPLETEOrde red By: Radiologist Radiology on 11-24-2024 [facility] Work Phone: ECG 12-LEADon 11-13-2024 [place] [address] Electrocardiograph Report Signed Patient: ALETA CASTRO MR#: [id number] : 2000 Acct:[id number] Age/Sex: 24 / F ADM Date: 11/12/24 Loc: CARD Attending Dr: Luna Steen Ordering Physician: Luna Steen Date of Service: 11/12/24 Procedure(s): ECG 12 lead Accession Number(s): [id number] cc: [facility] Test Date: 2024-11-12 Pat Name: ALETA CASTRO Department: Room: - Gender: Female Cassandra Consultant: : 2000 Requested By: LUNA STEEN Order Number: [id number] Reading MD: Lesa Singh Measurements Intervals Pilot Rate: 79 P: 42 W[place]: 158 QRS: 81 QRSD: 90 T: 41 QT: 353 QTc: 405 Interpretive Statements SINUS RHYTHM Normal EKG No previous ECG available for comparison Electronically Signed On 11-13-2024 13:34:21 EDT by Lesa Singh Dictated By: Lesa Singh M.D. Signed By: 11/13/24 1334 11/13/24 1334 DD/ 1206 TD/TT: Assembling Motor Builder: [facility] Radiology, Rodogevon rai MD - 11/13/2024 [place] [address] Electrocardiograph Report Signed Patient: ALETA CASTRO MR#: [id number] : 2000 Acct:[id number] Age/Sex: 24 / F ADM Date: 11/12/24 Loc: CARD Attending Dr: Luna Steen Ordering Physician: Luna Steen Date of Service: 11/12/24 Procedure(s): ECG 12 lead Accession Number(s): [id number] cc: [facility] Test Date: 2024-11-12 Pat Name: ALETA CASTRO Department: Room: - Gender: Female Cassandra Consultant: : 2000 Requested By: LUNA STEEN Order Number: [id number] Reading MD: Lesa Singh Measurements Intervals Pilot Rate: 79 P: 42 WY: 158 QRS: 81 QRSD: 90 T: 41 QT: 353 QTc: 405 Interpretive Statements SINUS RHYTHM Normal EKG No previous ECG available for comparison Electronically Signed On 11-13-2024 13:34:21 EDT by Lesa Singh Dictated By: Lesa Singh M.D. Signed By: 11/13/24 1334 11/13/24 1334 DD/ 1206 TD/TT: Assembling Motor Builder: [facility] ECG 12-LEADOrdered By: Radio logist Radiology on 11-13-2024 [facility] Work Phone: ECG 12-LEADon 11-12-2024 Radiology Study observation (narrative) [facility] ALL CBC WITH AUTO DIFFon BASOPHILS ABSOLUTE AUTO 0 [facility] Basophils/100 WBC (Bld) 0.2 % 0.2 - 2.0 % [facility] Eosinophils/100 WBC (Bld) 0.5 % Low 0.9 - 7.0 % [facility] Erythrocyte distribution width (RBC) [Ratio] 12.7 % 11.0 - 15.0 % [facility] Hematocrit (Bld) [Volume fraction] 31.2 % Low 36.0 - 48.0 % [facility] Hemoglobin (Bld) [Mass/Vol] 10.8 g/dL Low 12.0 - 16.0 g/dL [facility] IMMATURE GRANULOCYTES ABS AUTO 0.01 [facility] Immature granulocytes/100 WBC (Bld) 0.2 % 0.0 - 0.5 % [facility] Interpretation and review of laboratory results Abnormal [facility] LYMPHOCYTES ABSOLUTE AUTO 1 Low [facility] Lymphocytes/100 WBC (Bld) 15 % Low 20.5 - 60.0 % [facility] MCH (RBC) [Entitic mass] 32.3 pg 26.7 - 34.0 pg [facility] MCHC (RBC) [Mass/Vol] 34.6 g/dL 29.9 - 35.2 g/dL [facility] MCV (RBC) [Entitic vol] 93.4 fL 81.0 - 99.0 fL [facility] MONOCYTES ABSOLUTE AUTO 0.5 [facility] Monocytes/100 WBC (Bld) 7.7 % 1.7 - 12.0 % [facility] NEUTROPHILS ABSOLUTE AUTO 5 [facility] Neutrophils/100 WBC (Bld) 76.4 % High 43.0 - 75.0 % [facility] Platelet mean volume (Bld) [Entitic vol] 9.7 fL 9.5 - 13.5 fL [facility] TBH EO # 0 [facility] TB PLT [address] [facility] RBC 3.34 Low [facility] WBC 6.6 [facility] IGP,APTIMA HPV,AGE GDLNon AGE GDLN ACOG TESTING Note . [facility] Comment on above: TESTS RESULT FLAG U NITS REF RANGE LAB Clinician Provided Cytology Information Source.............Endocervix No. of containers..01 ThinPrep Vial Age Amaris GUERRERO Yaa... FLAG LEGEND: L-Low Normal,H-High Normal,LL-Alert Low,HH-Alert High <-Panic Low,>-Panic High,A-Abnormal,AA-Critical Abnormal Performed at: 01 [address] [address] Ludy Hector MD, IGP, RFX APTIMA HPV ASCU Note . [facility] Comment on above: TESTS RESULT FLAG UN ITS REF RANGE LAB DIAGNOSIS: 02 NEGATIVE FOR INTRAEPITHELIAL LESION OR MALIGNANCY. THIS SPECIMEN WAS RESCREENED PART OF OUR ACUPUNCTURIST PROGRAM. Specimen adequacy: 02 Satisfactory for evaluation. No endocervical component is identified. Performed by: 02 Brionna Mello, Network Operations Project Manager ([facility]) QC reviewed by: 02 Polina Simons, Network Operations Project Manager . 02 Note: Note 02 The Pap [...] <-Panic Low,>-Panic High,A-Abnormal,AA-Critical Abnormal Performed at: [address] [phone] Ludy Hector MD, Performed at: = - [address] [id number] Applied Statistician: Ludy Hector MD, Phone: [phone] Performed at: [address] [id number] Applied Statistician: Ludy Hector MD, Phone: [phone] [facility] RECURRENT VAGINITIS (HTRX)on 10-30-2024 ATOPOBIUM VAGINAE 0 [facility] ATOPOBIUM VAGINAE Not detected [facility] BVAB 2,3 (BACTERIAL VAGINOSIS ASSOCIATED BACTERIA 2, 3); MOBILUNCUS SPP 0 [facility] BVAB 2,3 (BACTERIAL VAGINOSIS ASSOCIATED BACTERIA 2, 3); MOBILUNCUS SPP Not detected [facility] RICKEY ALBICANS, PARAPSILOSIS, TROPICALIS 0 [facility] RIKCEY ALBICANS, PARAPSILOSIS, TROPICALIS Not detected [facility] RICKEY GLABRATA 0 [facility] RICKEY GLABRATA Not detected [facility] RICKEY KRUSEI 0 [facility] RICKEY KRUSEI Not detected [facility] CHLAMYDIA TRACHOMATIS 0 [facility] CHLAMYDIA TRACHOMATIS Not detected [facility] GARDNERELLA VAGINALIS 0 [facility] GARDNERELLA VAGINALIS Not detected [facility] MEGASPHAERA (TYPES 1, 2) 0 [facility] MEGASPHAERA (TYPES 1, 2) Not detected [facility] MYCOPLASMA GENITALIUM 0 [facility] MYCOPLASMA GENITALIUM Not detected [facility] NEISSERIA GONORRHOEAE 0 [facility] NEISSERIA GONORRHOEAE Not detected [facility] TRICHOMONAS VAGINALIS 0 [facility] TRICHOMONAS VAGINALIS Not detected [facility] Urinalysis macro (dipstick) panel (U)on 10-28-2024 Bilirubin, UA Positive Negative - 4(70) +++ mg/dL [facility] Blood, UA Negative Negative - 50 Randall/mcL [facility] Clarity, UA Clear [facility] Color, UA Yellow [facility] Glucose, UA Positive Negative - 1999(110) ++++ mg/dL [facility] Interpretation and review of laboratory results Abnormal [facility] Ketones, UA Positive Negative - 160(16) ++++ mg/dL [facility] Leukocytes, UA Negative Negative - 500+++ Rick/mcL [facility] Nitrite, UA Negative Negative - Positive [facility] pH, UA 6 5 - 9 [facility] Protein, UA Positive Negative - 1999(20) ++++ mg/dL [facility] Spec Grav, UA 1.03 1 - 1.03 [facility] Urobilinogen, UA 0.2 0.2 - 12 mg/dL [facility] US OB CERVICAL LENGTHon 09-16 [place] [address] Ultrasound Report Signed Patient: ALETA CASTRO MR#: [id number] : 2000 Acct:[id number] Age/Sex: 24 / F ADM Date: 10/06/24 Loc: US Attending Dr: Doc Thomas D.O. Ordering Physician: Doc Thomas D.O. Date of Service: 10/06/24 Procedure(s): US OB cervical length Accession Number(s): [id number] cc: Doc Thomas D.O.; ROSALIE PAYNE [address] [address] Patient Name: ALETA CASTRO MRN: [id number] date: 2000 Sex: F Assigned Patient Location: US Current Patient Location: US Accession/Order Number: [id number] Exam Date: 10/06/2024 14:25 Report Date: 10/06/2024 [...] Jr., D.O. 10/06/2024 2:26 PM Dictation Location: [place] [address] Electronically authenticated by: [id number] Y Date: 10/06/2024 14:26 Dictated By: Jermaine Nguyễn M.D. Signed By: 10/06/24 1428 DD/ 25 TD/TT: Assembling Motor Builder: [facility] Radiology, Radiologi MD cecelia - 10/06/2024 [place] [address] Ultrasound Report Signed Patient: ALETA CASTRO MR#: [id number] : 2000 Acct:[id number] Age/Sex: 24 / F ADM Date: 10/06/24 Loc: US Attending Dr: Doc Thomas D.O. Ordering Physician: Doc Thomas D.O. Date of Service: 10/06/24 Procedure(s): US OB cervical length Accession Number(s): [id number] cc: Doc Thomas D.O.; ROSALIE PAYNE [address] [address] Patient Name: ALETA CASTRO MRN: [facility]:[id number] date: 2000 Sex: F Assigned Patient Location: US Current Patient Location: US Accession/Order Number: [id number] Exam Date: 10/06/2024 14:25 Report Date: 10/06/2024 [...] Jr., D.O. 10/06/2024 2:26 PM Dictation Location: [place] [address] Electronically authenticated by: [id number] Y Date: 10/06/2024 14:26 Dictated By: Jermaine Nguyễn M.D. Signed By: 10/06/24 1428 DD/ 25 TD/TT: Assembling Motor Builder: [facility] Radiology Study observation (narrative) [facility] US OB CERVICAL LENGTHOrdered By: Radiologist Radiology on 10-06-2024 [facility] [employer] Work Phone: US OB 14+ WEEKS ANATOMY [...] UA Negative Negative - 4(70) +++ mg/dL [facility] Blood, UA Negative Negative - 50 Randall/mcL [facility] Clarity, UA Clear [facility] Color, UA Yellow [facility] Glucose, UA Negative Negative - 1999(110) ++++ mg/dL [facility] Interpretation and review of laboratory results Normal [facility] Ketones, UA Negative Negative - 160(16) ++++ mg/dL [facility] Leukocytes, UA Negative Negative - 500+++ Rick/mcL [facility] Nitrite, UA Negative Negative - Positive [facility] pH, UA 6 5 - 9 [facility] Protein, UA Negative Negative - 1999(20) ++++ mg/dL [facility] Spec Grav, UA 1.005 1 - 1.03 [facility] Urobilinogen, UA 1.0 0.2 - 12 mg/dL [facility] ALL THYROID STIM HORMONEon 0 09-28-2024 TSH Qn 0.836 m[IU]/L [facility] Urinalysis macro (dipstick) panel (U)on 09-02-2024 Bilirubin, UA Negative Negative - 4(70) +++ mg/dL [facility] Blood, UA Negative Negative - 50 Randall/mcL [facility] Clarity, UA Clear [facility] Color, UA Yellow [facility] Glucose, UA Negative Negative - 1999(110) ++++ mg/dL [facility] Interpretation and review of laboratory results Normal [facility] Ketones, UA Negative Negative - 160(16) ++++ mg/dL [facility] Leukocytes, UA Negative Negative - 500+++ Rick/mcL [facility] Nitrite, UA Negative Negative - Positive [facility] pH, UA 6 5 - 9 [facility] Protein, UA Negative Negative - 1999(20) ++++ mg/dL [facility] Spec Grav, UA 1.025 1 - 1.03 [facility] Urobilinogen, UA 0.2 0.2 - 12 mg/dL [facility] ALL THYROID STIM HORMONEon 0 08-31-2024 TSH Qn 1.413 m[IU]/L [facility] Urinalysis macro (dipstick) panel (U)on 08-05-2024 Bilirubin, UA Negative Negative - 4(70) +++ mg/dL [facility] Blood, UA Negative Negative - 50 Randall/mcL [facility] Clarity, UA Clear [facility] Color, UA Yellow [facility] Glucose, UA Negative Negative - 1999(110) ++++ mg/dL [facility] Interpretation and review of laboratory results Abnormal [facility] Ketones, UA Positive Negative - 160(16) ++++ mg/dL [facility] Comment on above: 40 Leukocytes, UA Trace Negative - 500+++ Rick/mcL [facility] Nitrite, UA Negative Negative - Positive [facility] pH, UA 6.5 5 - 9 [facility] Protein, UA Negative Negative - 2000(20) ++++ mg/dL [facility] Spec Grav, UA 1.025 1 - 1.03 [facility] Urobilinogen, UA 1.0 0.2 - 12 mg/dL [facility] BOX TESTon 07-18-2024 [address] OUT [facility] BOX1 [facility] BOX2 07/18/24 [facility] DRUG SCREEN RAPID (URINE )on 07-18-2024 AMPHETAMINE SCREEN URINE Negative NEGATIVE [facility] BARBITURATES SCREEN URINE Negative NEGATIVE [facility] BENZODIAZEPINES SCREEN URINE Negative NEGATIVE [facility] BUPRENORPHINE SCREEN URINE Negative NEGATIVE [facility] Comment on above: DRUG CLASS TEST SYST [...] 300 ng/mL CANNABINOID SCREEN URINE Negative NEGATIVE [facility] COCAINE SCREEN URINE Negative NEGATIVE [facility] METHADONE SCREEN URINE Negative NEGATIVE [facility] METHAMPHETAMINES SCREEN URINE Negative NEGATIVE [facility] OPIATE SCREEN URINE Negative NEGATIVE [facility] OXYCODONE SCREEN URINE Negative NEGATIVE [facility] PHENCYCLIDINE SCREEN URINE Negative NEGATIVE [facility] TRICYCLIC ANTIDEPRESSANT URINE Negative NEGATIVE [facility] HCG ( test) Ql (U)o n 07-16-2024 Interpretation and review of laboratory results Abnormal [facility] Preg Test, Ur Positive Negative [facility] US OB TRANSVAGINALon 025 US OB [...] II, MD, PHD at 19-Jul-2024 08:55:15 PM [facility] Normal Not Available Comment on above: Order Comment: US OB TRANSVAGINAL No LMP recorded. Urinalysis macro (dipstick) panel (U)on 07-16-2024 Bilirubin, UA Negative Negative - 4(70) +++ mg/dL [facility] Blood, UA Negative Negative - 50 Randall/mcL [facility] Clarity, UA Clear [facility] Color, UA Yellow [facility] Glucose, UA Negative Negative - 1999(110) ++++ mg/dL [facility] Interpretation and review of laboratory results Normal [facility] Ketones, UA Negative Negative - 160(16) ++++ mg/dL [facility] Leukocytes, UA Negative Negative - 500+++ Rick/mcL [facility] Nitrite, UA Negative Negative - Positive [facility] pH, UA 6.5 5 - 9 [facility] Protein, UA Negative Negative - 2000(20) ++++ mg/dL [facility] Spec Grav, UA 1.02 1 - 1.03 [facility] Urobilinogen, UA 1.0 0.2 - 12 mg/dL [facility] CBC W Auto Differential pane l (Bld)on 02-21-2024 Band form neutrophils (Bld) [#/Vol] CANCELED [facility] Comment on above: Result canceled by t ancillary. Band form neutrophils/100 WBC (Bld) CANCELED % [facility] Comment on above: Result canceled by t ancillary. Basophils (Bld) [#/Vol] 19 10*3/uL [facility] Basophils/100 WBC (Bld) 0.4 % [facility] Blasts (Bld) [#/Vol] CANCELED 0 cells/uL [facility] Comment on above: Result canceled by t he ancillary. Blasts/100 WBC (Bld) CANCELED % [facility] Comment on above: Result canceled by t ancillary. Eosinophils (Bld) [#/Vol] 91 10*3/uL [facility] Eosinophils/100 WBC (Bld) 1.9 % [facility] Erythrocyte distribution width (RBC) [Ratio] 12.5 % 11.0 - 15.0 % [facility] Hematocrit (Bld) [Volume fraction] 38.9 % 35.0 - 45.0 % [facility] Hemoglobin (Bld) [Mass/Vol] 12.8 g/dL 11.7 - 15.5 g/dL [facility] Lymphocytes (Bld) [#/Vol] 1282 10*3/uL [facility] Lymphocytes/100 WBC (Bld) 26.7 % [facility] MCH (RBC) [Entitic mass] 30.6 pg 27.0 [...] Healthcare Metamyelocytes (Bld) [#/Vol] CANCELED 0 cells/uL [facility] Comment on above: Result canceled by t he ancillary. Metamyelocytes/100 WBC (Bld) CANCELED % [facility] Comment on above: Result canceled by t he ancillary. Monocytes (Bld) [#/Vol] 422 10*3/uL [facility] Monocytes/100 WBC (Bld) 8.8 % [facility] [facility] Myelocytes (Bld) [#/Vol] CANCELED 0 cells/uL [facility] Comment on above: Result canceled by t he ancillary. Myelocytes/100 WBC (Bld) CANCELED % [facility] Comment on above: Result canceled by t he ancillary. Neutrophils (Bld) [#/Vol] 2986 10*3/uL [facility] Neutrophils/100 WBC (Bld) 62.2 % [facility] Nucleated RBC (Bld) [#/Vol] CANCELED 0 cells/uL [facility] anc[facility]. Promyelocytes/100 WBC (Bld) CANCELED % [facility] Comment on above: Result canceled by t he ancillary. RBC (Bld) [#/Vol] 4.18 10*6/uL [facility] Service comment (Unsp spec) [Interp] CANCELED [facility] Comment on above: Result canceled by [facility] ancillary. Variant lymphocytes/100 WBC (Bld) CANCELED 0 - 10 % [facility] Comment on above: Result canceled by t ancillary. WBC (Bld) [#/Vol] 4.8 10*3/uL [facility] Iron and Iron binding capaci ty panelon 02-21-2024 Iron [Mass/Vol] 101 ug/dL [facility] Iron binding capacity [Mass/Vol] 340 [facility] Iron saturation [Mass fraction] 30 [facility] Laboratory - Chemistry and C hemistry - challengeon 02-21-2024 Albumin [Mass/Vol] 4.8 g/dL 3.6 - 5.1 g/dL [facility] Albumin/Globulin [Mass ratio] 1.8 {ratio} [facility] ALP [Catalytic activity/Vol] 65 U/L 31 - 125 U/L [facility] ALT [Catalytic activity/Vol] 16 U/L 6 - 29 U/L [facility] AST [Catalytic activity/Vol] 14 U/L 10 - 30 U/L [facility] Bilirubin [Mass/Vol] 0.6 mg/dL 0.2 - 1 .2 mg/dL [facility] Calcium [Mass/Vol] 9.3 mg/dL 8.6 - 10. 2 mg/dL [facility] Chloride [Moles/Vol] 107 mmol/L 98 - 11 0 mmol/L [facility] CO2 [Moles/Vol] 24 mmol/L 20 - 32 mmol/L [facility] Cortisol [Mass/Vol] 14.3 ug/dL mcg/dL [facility] Comment on above: Reference Range: For 8 a.m.(7-9 a.m.) Specimen: 4.0-22.0 Reference Range: For 4 p.m.(3-5 p.m.) Specimen: 3.0-17.0 * Please interpret above results accordingly * Creatinine [Mass/Vol] 0.71 mg/dL 0.50 - 0.96 mg/dL [facility] GFR/1.73 sq M.predicted among non-blacks MDRD (S/P/Bld) [Vol rate/Area] 122 mL/min/{1.73_m2} > OR = 60 mL/min/1.73m 2 [facility] Globulin (S) [Mass/Vol] 2.6 g/dL [facility] Glucose [Mass/Vol] 95 mg/dL 65 - 99 mg/dL [facility] Comment on above: Fasting reference interval Potassium [Moles/Vol] 4.2 mmol/L 3.5 - 5.3 mmol/L [facility] Protein [Mass/Vol] 7.4 g/dL 6.1 - 8.1 g/dL [facility] Sodium [Moles/Vol] 139 mmol/L 135 - 146 mmol/L [facility] Urea nitrogen [Mass/Vol] 16 mg/dL 7 - 25 mg/dL [facility] Urea nitrogen/Creatinine [Mass ratio] SEE NOTE: [facility] Comment on above: Not Reported: BUN an d Creatinine are within reference range. Laboratory - Serology - non- microon 02-21-2024 Thyroglobulin Ab Qn 153 [IU]/mL High < or = 1 IU/mL [facility] TPO Ab Qn 27 [IU]/mL High NINF [facility] No Panel Informationon 02-20 Interpretation and review of laboratory results Abnormal [facility] Performing Organizat ion Information Site ID: QTW Name: [facility] Address: [address] [place] [id number] Director: Urvashi Gtz [facility] Performing Organizat ion Information Site ID: QPT Name: [facility] Address: [address] [place] [address], [address] [place], [place] [id number] Director: Yonis Beck MD [facility] T3, [facility] 02-05-2024 Free T3 [Mass/Vol] 3.6 pg/mL Normal 2.3-4.2 [facility] Comment on above: Performed By: #### 8 45, [address]131, 866 #### [facility] [address], [address] [place] [address] Clinical Rehabilitation Coordinator: Yonis Beck MD T4, FREE 02-05-2024 Free T4 [Mass/Vol] 1.1 ng/dL Normal 0.8-1.8 [facility] Comment on above: Order Comment: FASTI NG:NO FASTING: NO Performed By: #### 8 99, 79972, 866 #### [facility] [address], [address] [place] [address] Clinical Rehabilitation Coordinator: Yonis Beck MD TSHon 02-05-2024 TSH Qn 1.98 m[IU]/L Normal [facility] Comment on above: Result Comment: Refe rence Range > or = 20 Years 0.40-4.50 Ranges First trimester 0.26-2.66 Second trimester 0.55-2.73 Third trimester 0.43-2.91 Performed By: #### 8 99, 70381, 866 #### [facility] [address], [address] [place] [address] Clinical Rehabilitation Coordinator: Yonis Beck MD HCG ( test) IA.rapi d Ql (U)Ordered By: Marcelle Patel on 09-02-2023 HCG ( test) Ql (U) Negative [facility] HCG,Urineon 09-02-2023 Beta HCG ( test) Ql (U) Negative Normal The Replaced By [facility] Comment on above: Result Comment: PERF ORMED BY: [place] [address] PATHOLOGIST SAT INSTRUCTOR RAYMOND SUERO M.D. Performed By: #### U HCG #### [address] Chaitanya 09-02-2023 L Specimen: [id number] Received: 09/03/23 Status: FRANKLYN Yassine Num: [id number] Spec Type: Surgical Subm Dr: Marcelle Patel [...] Location Account Attending Physician Aleta Castro 24/ [id number] Marcelle Patel DO SPEC NUM: [id number] RECD: 09/03/23 STATUS: FRANKLYN GONZALES NUM: [id number] MIRIAM: 09/02/23- SUBM DR: Marcelle Patel DO ENTERED: 09/03/[address] [facility] DR: SPEC TYPE: Surgical DEPT: S ORDERED: [...] mild squamous acanthosis and occasionally associated Specimen: [id number] Received: 09/03/23 Status: FRANKLYN Gonzales Num: [id number] Spec Type: Surgical Subm Dr: Marcelle Patel DO Tissues: A Small Intestine - Biopsy/Polyp (SMALL BOWEL BX) B GASTRIC FOR HP (GASTRIC HP) C Esophagus Biopsy (DISTAL ESOPHAGUS) D Esophagus Biopsy (PROXIMAL ESOPHAGUS) E Colon Biopsy (RANDOM RT COLON) F Colon Biopsy (RANDOM LT COLON) Procedures: HE/12, Gross/Micro L4/6, H PYLORI, IHC First AB Patient: MatthewAleta N [id number] (Continued) Specimen: [id number] Received: 09/03/23 (Continued) Pathological Diagnosis (Continued) Signed (signature on file) Heather Villegas MD 09/05/23 1417 Specimen: [id number] Received: 09/03/23 Status: FRANKLYN Gonzales Num: [id number] Spec Type: Surgical Subm Dr: Marcelle Patel DO Tissues: A Small Intestine - Biopsy/Polyp (SMALL BOWEL BX) B GASTRIC FOR HP (GASTRIC HP) C Esophagus Biopsy (DISTAL ESOPHAGUS) D Esophagus Biopsy (PROXIMAL ESOPHAGUS) E Colon Biopsy (RANDOM RT COLON) F Colon Biopsy (RANDOM LT COLON) Procedures: HE/12, Gross/Micro L4/6, H PYLORI, IHC First AB Patient: Aleta Castro [id number] (Continued) Specimen: [id number] Received: 09/03/23 (Continued) Pathological Diagnosis (Continued) lymphocytic [...] submitted (more content not included)... Normal The Replaced By [facility] Insurance Correspondence Off ice05-08-2023 Insurance Correspondence Office [id number]#1.00TI FF [facility] IntraOperative Documentson 0 04-29-2023 IntraOperative Documents [id number]#1.00TIF F [facility] Postoperative Documentson Postoperative Documents [id number]#1.00TIF F [facility] Main OR Intraoperative Recor don 04-25-2023 Main OR Intraoperative Record IntraOp Document Type FT Summary Primary Physician: Myron Marroquin DO Finalized Date/Time: 04/25/23 09:04:33 Pt. Name: ALETA CASTRO/Sex: 2000 Female Med Rec #: [id number] Physician: Myron Marroquin DO Financial #: [id number] Pt. Type: A Room/Bed: [place] [address] Admit/Disch: 04/23/23 06:25:15 - 04/23/23 14:50:00 Institution: [...] assist with the block. Patient's heartrate 89, [id number]% on room air. patient tolerated block well. 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 Normal [facility] Consent for Anesthesiaon Consent for Anesthesia [id number]#1.00T IFF Normal [facility] Discharge Instructionson Discharge Instructions [id number]#1.00T IFF Normal [facility] IntraOperative Documentson 0 04-24-2023 IntraOperative Documents [id number]#1.00T IFF Normal [facility] Operative Reporton Operative Report SURGERY DATE: 2023 INFORMATION ASSISTANT: Garry Camacho CST PREOPERATIVE DIAGNOSIS: Left knee anterior cruciate ligament tear POSTOPERATIVE DIAGNOSIS: Left knee anterior cruciate ligament tear OPERATION: Left knee diagnostic operative arthroscopy with autograft rjao-xggnkd-dili anterior cruciate ligament reconstruction with InternalBrace augmentation ANESTHESIA: General as well as regional block ANESTHESIOLOGIST: KARTHIKEYAN Peacock ESTIMATED BLOOD LOSS: 10 mL INTRAVENOUS FLUIDS: Please see the operative record SPECIMEN: None COMPLICATIONS: None IMPLANTS: Arthrex [id number]-[id number] Tightrope system with the button for the [...] The anterior cruciate ligament was reconstructed using sjug-jkzwjx-eiyh from patellar tendon autograft with this InternalBrace [...] over reaming with a 10 mm barrel drum cutter. Excess bone debris is again removed. The [...] on the femo (more content not included)... [facility] Comment on above: Result Comment: Elec tronically Signed By: Myron Marroquin DO\.br\Date and Time Signed: 04/24/23 07:15 EST Preoperative Documentson Preoperative Documents [id number]#1.00T IFF [facility] Consent for Procedure/Surger yon 04-23-2023 Consent for Procedure/Surgery [id number]#1.00TIF F [facility] Consent for Treatmenton Consent for Treatment [id number]#1.00TIF F [facility] Discharge Instructionson Discharge Instructions ALETA CASTRO [...] been scheduled. Call for any problems. Where: [address] [place] [phone]- [employer] (1) Medications What How Much When Instructions Next Dose New acetaminophen-oxycodone (Percocet 5 mg-325 mg oral tablet) 1 Tablets By Mouth As Directed 1-2 po Q4-6h prn pain Dx: S83.512D Duration: 7 days Pickup at [facility]/pharmacy #2342 New aspirin (Ecotrin 325 mg Tab-EC) 1 Tablets By Mouth Every day Pickup at [facility]/pharmacy #2343 Pharmacy Information [facility]/pharmacy #2346: [address] [place], [place] [phone] Allergies Banana (Throat tightness, Hives, Vomiting) Latex (Hives, Swelling) azithromycin (Hives) midodrine (Numbness) Education Materials [place], [place] [facility] DISCHARGE INSTRUCTIONS: ANTERIOR CRUCIATE [...] concerns. ___ Myron Marroquin DO [facility] [address] [place], [place] [id number] Reviewed: 06-23 Revised: 03/29 Common Emergency Awareness [...] share your experie (more content not included)... [facility] Comment on above: Result Comment: Elec tronically Signed By: Marcelo MCQUEEN, Shyla Acevedo\.ammy\Date and Time Signed: 04/23/23 10:58 EST H&P Updateon 04-23-2023 H&P Update [id number]#1.00TIF F [facility] Main OR PACU I Recordon Main OR PACU I Record PACU Phase I Document Type FT Summary Primary Physician: Myron Marroquin DO Finalized Date/Time: 04/23/23 12:22:33 Pt. Name: ALETA CASTRO/Sex: 2000 Female Med Rec #: [id number] Physician: Myron Marroquin DO Financial #: [id number] Pt. Type: A Room/Bed: [place] [address] Admit/Disch: 04/23/23 06:25:15 - Institution: Case Times [...] Signed By: Valencia Jimenez RN 04/23/23 12:22 [facility] Main OR Preoperative Recordo n 04-23-2023 Main OR Preoperative Record PreOp Document Type FT Summary Primary Physician: Myron Marroquin DO Finalized Date/Time: 04/23/23 08:50:41 Pt. Name: MATTHEWALETA /Sex: 2000 Female Med Rec #: [id number] Physician: Myron Marroquin DO Financial #: [id number] Pt. Type: A Room/Bed: [place] [address] Admit/Disch: 04/23/23 06:25:15 - Institution: Case Times [...] Signed By: Lyle Comer RN 04/23/23 08:50 [facility] Monitor Recordon 04-23-2023 Monitor Record [id number] 2019 [id number]#1.00TI FF [facility] Operative Reporton Operative Report Patient: AILEEN [...] Using maximal sterile barrier technique per current [facility] guidelines including hand hygeine, Guidance (Ultrasound used [...] patient tolerated the procedure as expected. Normal [facility] Comment on above: Result Comment: Elec tronically Signed By: [facility] ()Cyrus\.br\Date and Time Signed: 04/23/23 07:56 EST Patient Education - Texton 0 04-23-2023 Patient Education - Text [place], [place] [facility] DISCHARGE INSTRUCTIONS: ANTERIOR CRUCIATE [...] concerns. ___ Myron Marroquin DO [facility] [address] [place] [address] Reviewed: 06-23 Revised: 03/29 [facility] Progress Note-Physicianon Progress Note-Physician Patient: ALETA [...] Daily, # 21 tab(s), Refills(s) 0, Pharmacy: [facility]/pharmacy #2345, 165, cm, 04/04/23 6:11:00 EST, Height/Length Dosing, 78, kg, 04/04/23 6:11:00 EST, Weight Dosing Percocet 5 mg-325 mg oral tablet: 1 tab(s), Oral, As Directed, 40 tab(s), Refill(s) 0, 1-2 po Q4-6h prn pain Dx: S83.512D Duration: 7 days, [facility]/pharmacy #2345, 165, cm, 04/04/23 6:11:00 EST, Height/Length Dosing, 78, kg, 04/04/23 6:11:00 EST, Weight Dosing, Home Medications (2) Active Ecotrin 325 mg Tab-EC 325 mg = 1 tab(s), Oral, Daily Percocet 5 mg-325 mg oral tablet 1 tab(s), Oral, As Directed Problem list: All Problems H/O: hypothyroidism / SNOMED CT 580627529 / Confirmed POTS (postural orthostatic tachycardia syndrome) / SNOMED CT 3164312859 / Confirmed Physical Examination Vital Signs 04/23/2023 [...] Pressure 1 (more content not included)... Normal [facility] Comment on above: Result Comment: Elec tronically Signed By: [facility] ()Cyrus\.br\Date and Time Signed: 04/23/23 11:06 EST Progress Note-Physician Patient: ALETA CASTRO Age: 22 years Sex: Female : 2000 Associated Diagnoses: None Author: Myron Marroquin DO Postoperative Information Procedure: L knee scope, ACL recon Preoperative Diagnosis: L ACL tear. Postoperative Diagnosis: same. Performed by: daniel. Commercial Real Estate Agent: Roby Camacho. Specimens Removed: none. Prosthesis: Arthrex. . Estimated Blood Loss: 10 ml. Complications: None. Anesthesia type: General, block. Normal [facility] Comment on above: Result Comment: [...] Daily, # 21 tab(s), Refills(s) 0, Pharmacy: [facility]/pharmacy #2345, 165, cm, 04/04/23 6:11:00 EST, [...] All Problems H/O: hypothyroidism / SNOMED CT 806560627 / Confirmed POTS (postural orthostatic tachycardia syndrome) / SNOMED CT 3954525445 / Confirmed, Active Problems (2) H/O: hypothyroidism POTS (postural orthostatic tachycardia syndrome) Histories Past Medical History: No active or resolved past medical history items have been selected or recorded. Family History: No family history items have been selected or recorded. Procedure history: Laparoscopic left ovarian R/o (1981540318). Ovarian cyst removal (404444209). Social History Social & Psychosocial Habits Alcohol [...] U beta hCG Ql Negative . Plan [place] [employer] Anesthesiologists (ASA) physical status classification: Class II. Anesthetic Preoperative Plan: Anesthesia General. Regional Adductor Canal Block Left. Normal [facility] Comment on above: Result Comment: Elec tronically Signed By: [facility] ()Cyrus\.br\Date and Time Signed: 04/23/23 07:41 EST U BetaHcg Qualon 04-23-2023 HCG.beta subunit (U) [Moles/Vol] Negative Normal [facility] Comment on above: Performed By: #### 2 [id number] ####[facility] [address] [place] [address] Consent for Procedure/Surger yon 04-16-2023 Consent for Procedure/Surgery [id number]#1.00TIF F Normal [facility] CBC w/ Auto Diffon 4 Basophil Absolute 0.0 E9/L Normal 0.0-0.2 [facility] Comment on above: Performed By: #### 2 646756 ####[facility] [address] [address] Basophils/100 WBC (Bld) 0.4 % Normal 0.0-2.0 [facility] Comment on above: Performed By: #### 2 836959 ####[address] [address] Eos Absolute 0.1 E9/L Normal 0.0-0.5 [facility] Comment on above: Performed By: #### 2 286237 ####[address] [address] Eosinophils/100 WBC (Bld) 1.0 % Normal 0.0-8.0 [facility] Comment on above: Performed By: #### 2 084662 ####[address] [address] Erythrocyte distribution width (RBC) [Ratio] 12.6 % Normal 10.9-14.2 [facility] Comment on above: Performed By: #### 2 697168 ####[address] [address] Hematocrit (Bld) [Volume fraction] 39.0 % Normal 34.0-46.0 [facility] Comment on above: Performed By: #### 2 139623 ####[address] [address] Hemoglobin (Bld) [Mass/Vol] 13.1 g/dL Normal 12.0-16.0 [facility] Comment on above: Performed By: #### 2 790047 ####[address] [address] Lymph Absolute 1.4 E9/L Normal 1.0-4.0 [facility] Comment on above: Performed By: #### 2 249121 ####[address] [address] Lymphocytes/100 WBC (Bld) 22.2 % Normal 14.0-50.0 [facility] Comment on above: Performed By: #### 2 118739 ####[address] [address] MCH (RBC) [Entitic mass] 30.6 pg Normal 27.0-34.0 [facility] Comment on above: Performed By: #### 2 474006 ####[address] [address] MCHC (RBC) [Mass/Vol] 33.7 g/dL Normal 31.4-36.0 [facility] Comment on above: Performed By: #### 2 410705 ####[address] [address] MCV (RBC) [Entitic vol] 91.0 fL Normal 80.0-100.0 [facility] Comment on above: Performed By: #### 2 317892 ####[address] [address] [place] Absolute 0.4 E9/L Normal 0.2-1.0 [facility] Comment on above: Performed By: #### 2 919237 ####[address] [address] Monocytes/100 WBC (Bld) 5.6 % Normal 4.0-14.0 [facility] Comment on above: Performed By: #### 2 192098 ####[address] [address] Neutro Absolute 4.6 E9/L Normal 2.0-7.5 [facility] Comment on above: Performed By: #### 2 020638 ####[address] [address] Neutro Auto 70.8 % Normal 36.0-75.0 [facility] Comment on above: Performed By: #### 2 385839 ####[address] [address] Platelet 312.0 E9/L Normal 150.0-500.0 [facility] Comment on above: Performed By: #### 2 186739 ####[address] [place] [address] Platelet mean volume (Bld) [Entitic vol] 7.7 fL Normal 6.4-10.8 [facility] Comment on above: Performed By: #### 2 368879 ####[facility] [address] [place] [address] RBC 4.3 E12/L Normal 4.3-5.9 [facility] Comment on above: Performed By: #### 2 446573 ####[facility] [address] [place] [address] WBC 6.5 E9/L Normal 4.0-11.0 [facility] Comment on above: Performed By: #### 2 714350 ####[facility] [address] [place] [address] Consent for Treatmenton 03-18 Consent for Treatment [id number]#1.00TIF F Normal [facility] HEMATOLOGYOrdered By: SYSTEM SYSTEM on 04-03-2023 Basophil [...] Normal 80.0 - 100.0 fL Remisol Heme [place] Absolute 0.4 E9/L Normal 0.2 - 1.0 [...] (COVID-19) RNA QUEENIE+probe Ql (Unsp spec) Negative [facility] Other COVID/FLU/RSV RT-PCR Negative [facility] Protalex Other Quick Strepon 04-01-2023 S. pyogenes Org specific cx Ql (Throat) Negative [facility] Other Musicnotes Strep [facility] Other US Gallbladderon 07-23-2022 US Gallbladder Clinical [...] by Corneliuscamden Hernandez on 07/23/2022 1043 Normal [facility] Glaze Mixer PAP ACOG PANEL 2: 21 to 29on 05-09-2022 . . Normal [facility] Comment on above: Performed By: #### 4 [id number] #### [facility] [address] [address] [address] Yovanny Villegas Age Gdln ACOG Testing - Normal [facility] Comment on above: Performed By: #### 4 347809 #### [facility] [address] [address] [address] Yovanny Villegas DIAGNOSIS: Comment [facility] Comment on above: Result Comment: NEGA TIVE FOR INTRAEPITHELIAL LESION OR MALIGNANCY. Performed By: #### 4 920741 #### [facility] [address] [place] [address] Dr. Yovanny Villegas Methodology: Comment [facility] Comment on above: Result Comment: This liquid based ThinPrep(R) pap test was screened with the use of an image guided system. Performed By: #### 4 729459 #### [facility] [address] [place] [address] Dr. Yovanny Villegas Note: Comment [facility] Comment on above: Result Comment: The Pap smear is a screening test designed to aid in the detection of premalignant and malignant conditions of the uterine cervix. It is not a diagnostic procedure and should not be used as the sole means of detecting cervical cancer. Both false-positive and false-negative reports do occur. . Performed By: #### 4 165964 #### [facility] [address] [address] [address] Yovanny Villegas Performed by: Comment Normal [facility] Comment on above: Result Comment: Yanira Navarrete, Entomology Teacher (ASCP) Performed By: #### 4 922338 #### [facility] [address] [address] [address] Yovanny Villegas Reflex Criteria: Comment [facility] Comment on above: Result Comment: The HPV DNA reflex criteria were not met with this specimen result therefore, no HPV testing was performed. . Performed By: #### 4 308570 #### [facility] [address] [place] [address] Dr. Yovanny Villegas Specimen adequacy: Comment Normal [facility] Comment on above: Result Comment: Sati sfactory for evaluation. Endocervical and/or squamous metaplastic cells (endocervical component) are present. Performed By: #### 4 375411 #### [facility] [address] [place] [address] Dr. Yovanny Villegas CHLAMYDIA/GONOCOCCUS QUEENIE ( AB/URINE/PAPon 07-28-2021 Chlamydia trachomatis, QUEENIE Negative Normal Negative [facility] Comment on above: Performed By: #### C T/NGNA #### [facility] [address] [place] [address] Dr. Yovanny Villegas Neisseria gonorrhoeae, QUEENIE Negative Normal Negative [facility] Comment on above: Performed By: #### C T/NGNA #### [facility] [address] [place] [address] Dr. Yovanny Villegas VAGINITIS/VAGINOSIS DNA PROB Anders 07-27-2021 Rcikey species Negative Normal Negative [facility] Comment on above: Performed By: #### V AGINT #### [facility] [address] [place] [address] Dr. Yovanny Villegas Gardnerella vaginalis Negative Normal Negative [facility] Comment on above: Performed By: #### V AGINT #### [facility] [address] [place] [address] Dr. Yovanny Villegas Trichomonas vaginalis Negative Normal Negative [facility] Comment on above: Performed By: #### V AGINT #### [facility] [address] [place] [address] Dr. Yovanny Villegas XR KNEE LEFT (3 [...] Deshaun Aguilar MD 05/24/21 Final result Normal [facility] No fracture or dislocation. [facility] EXAMINATION: THREE XRAY VIEWS OF THE LEFT KNEE 05/24/2021 8:48 pm COMPARISON: None. HISTORY: ORDERING SYSTEM PROVIDED HISTORY: pain eval occult bony injury TECHNOLOGIST PROVIDED HISTORY: pain eval occult bony injury FINDINGS: No fracture, dislocation, or focal osseous lesion is noted. No significant soft tissue abnormality seen. [facility] Deshaun Aguilar MD - 05/24/2021 EXAMINATION: THREE XRAY VIEWS OF THE LEFT KNEE 05/24/2021 8:48 pm COMPARISON: None. HISTORY: ORDERING SYSTEM PROVIDED HISTORY: pain eval occult bony injury TECHNOLOGIST PROVIDED HISTORY: pain eval occult bony injury FINDINGS: No fracture, dislocation, or focal osseous lesion is noted. No significant soft tissue abnormality seen. IMPRESSION: No fracture or dislocation. [facility] Phone: Radiology Study observation (narrative) [facility] Phone: XR KNEE LEFT (3 VIEWS)Ordere d By: Deshaun Aguilar on 05-24-2021 [employer] Phone: COVID Quick Testingon 2021 Result Negative [facility] Other Quick Strepon 05-01-2021 S. pyogenes Org specific cx Ql (Throat) Positive [facility] Other Quick Strep [facility] Other COVID Quick Testingon 2021 Result Negative [facility] Other Quick Fluon 04-07-2021 FLUAV Ab CF (S) [Titer] Negative [facility] Other FLUBV Ab CF (S) [Titer] Negative [facility] Other XR SACRUM COCCYX (MIN 2 VIEW S)on 12-14-2020 XR SACRUM COCCYX (MIN 2 VIEWS) EXAMINATION: THREE XRAY VIEWS OF THE SACRUM/COCCYX 12/14/2020 3:10 am COMPARISON: None. HISTORY: ORDERING SYSTEM PROVIDED HISTORY: fall at work - hit [id number] TECHNOLOGIST PROVIDED HISTORY: fall at work - hit [id number] FINDINGS: The sacroiliac joints are normally aligned. The visualized portions the pelvis are. There is no fracture of the sacrum or coccyx evident. IMPRESSION: No acute osseous abnormality of the sacrum or coccyx evident. Interpreted by: Loc Oswald MD Signed by: Loc Oswald MD 12/14/20 Final result Normal [facility] XR SACRUM COCCYX (MIN 2 VIEW S)Ordered By: David Dominguez on 12-14-2020 No acute osseous abnormality of the sacrum or coccyx evident. [facility] Phone: EXAMINATION: THREE X RAY VIEWS OF THE SACRUM/COCCYX 12/14/2020 3:10 am COMPARISON: None. HISTORY: ORDERING SYSTEM PROVIDED HISTORY: fall at work - hit [id number] TECHNOLOGIST PROVIDED HISTORY: fall at work - hit [id number] FINDINGS: The sacroiliac joints are normally aligned. The visualized portions the pelvis are. There is no fracture of the sacrum or coccyx evident. [facility] Phone: Cuauhtemoc, pn Incoming Radiant Results From General Compressione/Pacs - 12/14/2020 3:24 AM EDT EXAMINATION: THREE XRAY VIEWS OF THE SACRUM/COCCYX 12/14/2020 3:10 am COMPARISON: None. HISTORY: ORDERING SYSTEM PROVIDED HISTORY: fall at work - hit [id number] TECHNOLOGIST PROVIDED HISTORY: fall at work - hit [id number] FINDINGS: The sacroiliac joints are normally aligned. The visualized portions the pelvis are. There is no fracture of the sacrum or coccyx evident. IMPRESSION: No acute osseous abnormality of the sacrum or coccyx evident. [facility] Phone: [facility] Phone: CT HEAD WO CONTRASTon 2020 CT [...] Interpreted by: Maira Cruz MD Signed by: aMira Cruz MD 09/19/20 Final result Normal [facility] CT Head WO ContrastOrdered B y: Luis Carlos Fragoso on 09-19-[address] examination of the brain. [facility] Phone: EXAMINATION: CT OF T HE HEAD [...] of the visualized skull or soft tissues. [facility] Phone: Cuauhtemoc, Mhpn Incoming Radiant Results From [employer] - 09/19/2020 4:42 PM EDT EXAMINATION: CT [...] Unremarkable noncontrast CT examination of the brain. [facility] Work Phone: [facility] Work Phone: Coding Summaryon 10-27-2019 Coding Summary CODING DATE: 020 [facility] STATUS: Home PAYOR: [facility] ADMIT DX: REASON FOR VISIT [...] Pablo Date Saved: 10/27/2019 03:10 pm Normal [facility] 2019 Novel Coronavirus (CoVI D-19), [place]ENIE LCon 10-26-2019 SARS-CoV-2, [place] (COVID-19) LC Not Detected Not Detected [facility] Comment on above: Order Comment: [id number] Result Comment: This test was developed and its performance characteristics determined by [employer]. This test has not been FDA cleared [...] detected) result in this assay. Performed At: [facility] [address] [facility] [place] [id number] Ruba Washburn MD Ph:[phone] Performed By: #### 6 [id number] #### [facility] (DEFAULT) [address] [place] [address] Consent Formson 10-26-2019 Consent Forms [id number] [id number]#1.00OTG TIFF Normal [facility] CNCOon 07-15-2017 CNCO Letter TextToll Free : [phone] [facility] - [address] [address]Frelg: [phone]: [facility] [place], [place] [address]Bmblk: [phone]: [place] [address] [place], [place] [address]Waefm: [phone]: Steve Pablo M.D., Jonna Castro M.D.Timothy J Adamowicz, D.O..Carin Hoover M.D. FACROSaju A. Refugio, M.D.Date: July 15, 2017Re: Aleta Elliott WHOM IT MAY CONCERN:She was seen in our office today.Sincerely,Katelin Cardona PSR(signed electronically to expedite mailing) Normal [facility] CNOVSPon 07-15-2017 CNOVSP Visit (SP) Office (HEMACL) SYEDA GARAY JANESSA ([id number]) 89 FDate Time Provider Department07/15/17 3:15 PM [...] well-hydrated,well nourishedNeuro: Gait normal.Collected: 05/15/17 1043Resulting lab: [facility] MAIN LABORATORYValue: (NOTE)Comment: Performing Pathologist: [...] list. no changes .Referring Provider: DAVID BECERRIL [[id number]]Allergies As of Date: 07/15/2017(No Known Allergies)Date Reviewed: [...] by DAVID BECERRIL MD on 07/17/17 Normal [facility] PROGRESSon 07-15-2017 PROGRESS HNO ID: [id number]: David LylessService: (none)Author Type: PhysicianType: Progress NotesFiled: [...] well nourishedNeuro: Gait normal.Collected: 05/15/17 1043Resulting lab: [facility] MAIN LABORATORYValue: (NOTE)Comment: Performing Pathologist: [...] could consider further testingAljarred Becerril MD Normal [facility] Platelet Func Scrnon 018 COL/ADP Cartridge 85 CT (sec) Normal <118 [facility] Comment on above: Result Comment: Resu lts are reported as Closure Time (CT) in seconds. Performed By: #### P LTSCP ####[facility] [address]CBirds [place], [place] [phone] COL/EPI Cartridge 105 CT (sec) Normal <199 [facility] Comment on above: Result Comment: Resu lts are reported as Closure Time (CT) in seconds. Performed By: #### P LTSCP ####[facility] [place], [place] [phone] Plt Func Scr Interp (NOTE) Normal [facility] Comment on above: Result Comment: [...] bleeding disorder. Performed By: #### P LTSCP ####[facility] [address] AveCBirds [place], [place] [phone] Remote CBCDIF (for [facility] use o nly)on 05-15-2017 Abs Baso <0.03 Normal <0.11 [facility] Comment on above: Performed By: #### R CBCDF ####[facility] [address]CBirds [place], [place] [phone] Abs Mccook 0.53 k/uL Normal <0.87 [facility] Comment on above: Performed By: #### R CBCDF ####[place] [address] [place], [place] [phone] Abs Neut 2.59 k/uL Normal 1.45-7.50 [facility] Comment on above: Performed By: #### R CBCDF ####[place] [address] [place], [place] [phone] Basophils/100 WBC Auto (Bld) 0.4 % Normal [facility] Comment on above: Performed By: #### R CBCDF ####[address] [phone] DTYPE Auto Diff Normal [facility] Comment on above: Performed By: #### R CBCDF ####[place] [address] [place] [phone] Eosinophils 0.07 10*3/uL Normal <0.46 [facility] Comment on above: Performed By: #### R CBCDF ####[place] [address] [place], [place] [phone] Eosinophils/100 leukocytes 1.5 % Normal [facility] Comment on above: Performed By: #### R CBCDF ####[place] [address] [address], [place] [phone] Erythrocyte distribution width Auto Ratio (RBC) 12.2 % Normal 11.5-15.0 [facility] Comment on above: Performed By: #### R CBCDF ####[place] [address] [place], [place] [phone] Erythrocytes (RBC) 4.15 10*6/uL Normal 3.90-5.20 [facility] Comment on above: Performed By: #### R CBCDF ####[place] [address] [place], [place] [phone] Erythrocytes (RBC) 0.0 /100 WBC Normal 0 [facility] Comment on above: Performed By: #### R CBCDF ####[place] [address]ille[place] [place], [place] [phone] Erythrocytes (RBC) 10*6/uL Normal <0.01 [facility] Comment on above: Performed By: #### R CBCDF ####[place] [address] [place] [phone] Hematocrit (HCT) 39.4 % Normal 36.0-46.0 [facility] Comment on above: Performed By: #### R CBCDF ####[place] [address] [place], [place] [phone] Hemoglobin mass conc (Bld) 12.8 g/dL Normal 11.5-15.5 [facility] Comment on above: Performed By: #### R CBCDF ####[place] [address] [phone] Lymphocytes 1.37 10*3/uL Normal 1.00-4.00 [facility] Comment on above: Performed By: #### R CBCDF ####[place] [address] [address] [place] [phone] Lymphocytes/100 leukocytes 29.9 % Normal [facility] Comment on above: Performed By: #### R CBCDF ####[place] [address] [place], [place] [phone] MCH 30.8 pG Normal 26.0-34.0 [facility] Comment on above: Performed By: #### R CBCDF ####[place] [address], [place] [phone] MCHC mass conc (RBC) 32.5 g/dL Normal 30.5-36.0 [facility] Comment on above: Performed By: #### R CBCDF ####[place] [address] [address] [place] [phone] MCV 94.9 fL Normal 80.0-100.0 [facility] Comment on above: Performed By: #### R CBCDF ####[facility] [place], [place] [phone] Monocytes/100 leukocytes 11.6 % Normal [facility] Comment on above: Performed By: #### R CBCDF ####[facility] [place], [place] [phone] Neutrophils/100 WBC Auto (Bld) 56.6 % Normal [facility] Comment on above: Performed By: #### R CBCDF ####[address] [phone] Platelet mean volume (PMV) 10.2 fL Normal 9.0-12.7 [facility] Comment on above: Performed By: #### R CBCDF ####[address] [phone] Platelets 229 10*3/uL Normal 150-400 [facility] Comment on above: Performed By: #### R CBCDF ####[facility] [place], [place] [phone] WBC (Leukocytes) 4.58 10*3/uL Normal 3.70-11.00 [facility] Comment on above: Performed By: #### R CBCDF ####[address] [phone] CNCOon 04-29-2017 CNCO Letter TextToll Free : [phone] [facility] - [address] [place], [place] [address]Pxmtt: [phone]: [facility] [place], [place] [address]Nibgt: [phone]: [facility] [place], [place] [address]Ijuzi: [phone]: Steve Pablo M.D., Ronaldo Marquez M.D.David Becerril M.D.Papito Sood D.O..Carin Hoover M.D. FACROSaju A. Rajan, M.D.Date: April 29, 2017Re: Aleta Elliott WHOM IT MAY CONCERN:She was seen in our office today.Sincerely,Karly Pizarro Psr(signed electronically to expedite mailing) Normal [facility] CNOVSPon 04-29-2017 CNOVSP Visit (SP) Office (HEMACL) SYEDA GARAY JANESSA ([id number]) [address] [facility] Provider Department04/29/17 2:30 PM DAVID [...] patientand her mother at length. Would check [id number] at this time, further testingbased on results.1. [...] (HCC) [D69.1]Order(s):PLATELET FUNCTION SCREEN [SQPLTSCP] Order #: [id number] FUTURE CBC + DIFF (FOR REMOTE [facility] USE) [SQRCBCDF] Order #: [id number] FUTUREDisposition: Return in about 6 weeks (around [...] by DAVID BECERRIL MD on 04/29/17 Normal [facility] Don PROGRESSon 04-29-2017 PROGRESS HNO ID: [id number]: David Escaleraervice: (none)Author Type: PhysicianType: Progress NotesFiled: [...] and her mother at length. Would check [id number] at this time, furthertesting based on results.1. 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, choice of management likely to be influenced by history ofPOTSAlfred Sandeep Becerril MD Normal [facility] Vital Signs Date Time Vital Sign Value Performing Clinician Facility 12-23-2024 13:57-0400 Body mass index (BMI) [Ratio] 29.42 kg/m2 Luna Steen EMG TECHNICIAN Work Phone: [facility] 12-23-2024 13:57-0400 Body weight 77.75 kg Luna Steen EMG TECHNICIAN Work Phone: [facility] 12-23-2024 13:57-0400 Diastolic blood pressure 70 mm[Hg] Luna Steen EMG TECHNICIAN Work Phone: [facility] 12-23-2024 13:57-0400 Systolic blood pressure 110 mm[Hg] Luna Steen EMG TECHNICIAN Work Phone: [facility] 12-09-2024 14:07-0400 Body mass index (BMI) [Ratio] 28.84 kg/m2 Doc William DO Work Phone: [facility] 12-09-2024 14:07-0400 Body weight 76.2 kg Doc William DO Work Phone: [facility] 12-09-2024 14:07-0400 Diastolic blood pressure 74 mm[Hg] Doc William DO Work Phone: [facility] 12-09-2024 14:07-0400 Systolic blood pressure 110 mm[Hg] Doc William DO Work Phone: [facility] 11-25-2024 14:04-0400 Body mass index (BMI) [Ratio] 29.95 kg/m2 Luna Enio EMG TECHNICIAN Work Phone: [facility] 11-25-2024 14:04-0400 Body weight 79.15 kg Luna Enio EMG TECHNICIAN Work Phone: [facility] 11-25-2024 14:04-0400 Diastolic blood pressure 60 mm[Hg] Luna Enio EMG TECHNICIAN Work Phone: [facility] 11-25-2024 14:04-0400 Systolic blood pressure 110 mm[Hg] Luna Enio EMG TECHNICIAN Work Phone: [facility] 10-28-2024 14:39-0400 Body mass index (BMI) [Ratio] 28.49 kg/m2 Pretty Dm PA Work Phone: [facility] 10-28-2024 14:39-0400 Body weight 75.3 kg Pretty Laura PA Work Phone: [facility] 10-28-2024 14:39-0400 Diastolic blood pressure 80 mm[Hg] Pretty Dm PA Work Phone: [facility] 10-28-2024 14:39-0400 Systolic blood pressure 130 mm[Hg] Pretty Laura PA Work Phone: [facility] 09-30-2024 15:34-0400 Body mass index (BMI) [Ratio] 28.29 kg/m2 Doc William DO Work Phone: [facility] 09-30-2024 15:34-0400 Body weight 74.75 kg Doc William DO Work Phone: [facility] 09-30-2024 15:34-0400 Diastolic blood pressure 72 mm[Hg] Doc William DO Work Phone: [facility] 09-30-2024 15:34-0400 Systolic blood pressure 110 mm[Hg] Doc William DO Work Phone: [facility] 08-05-2024 14:27-0400 Body mass index (BMI) [Ratio] 30.21 kg/m2 Doc William DO Work Phone: [facility] 08-05-2024 14:27-0400 Body weight 79.83 kg Doc William DO Work Phone: [facility] 08-05-2024 14:27-0400 Diastolic blood pressure 76 mm[Hg] Doc William DO Work Phone: [facility] 08-05-2024 14:27-0400 Systolic blood pressure 110 mm[Hg] Doc William DO Work Phone: [facility] 02-26-2024 15:41-0500 Body height 162.6 cm Myron Pocos DO Work Phone: [facility] 02-26-2024 15:41-0500 Body mass index (BMI) [Ratio] 30.21 kg/m2 Myron Pocos DO Work Phone: [facility] 02-26-2024 15:41-0500 Body weight 79.83 kg Myron Pocos DO Work Phone: [facility] 02-19-2024 15:26-0500 Body height 162.6 cm Rosalie Payne MD Work Phone: [facility] 02-19-2024 15:26-0500 Body mass index (BMI) [Ratio] 30.21 kg/m2 Rosalie Panye MD Work Phone: [facility] 02-19-2024 15:26-0500 Body weight 79.83 kg Rosalie Payne MD Work Phone: [facility] 02-19-2024 15:26-0500 Heart rate 88 /min Rosalie Payne MD Work Phone: [facility] 02-19-2024 15:26-0500 SaO2% (BldA) [Mass fraction] 98 % Rosalie Payne MD Work Phone: [facility] 12-09-2023 08:00-0400 Body height 162.6 cm Kelvin Schwartz DO Work Phone: [facility] 12-09-2023 08:00-0400 Body mass index (BMI) [Ratio] 30.9 kg/m2 Kelvin Schwartz DO Work Phone: [facility] 12-09-2023 08:00-0400 Body weight 81.65 kg Kelvin Schwartz DO Work Phone: [facility] 09-02-2023 14:25-0400 Diastolic blood pressure 73 mm[Hg] MD Rosalie Payne Work Phone: [facility] 09-02-2023 14:25-0400 Heart rate 80 /min MD Rosalie Payne Work Phone: [facility] 09-02-2023 14:25-0400 Respiratory rate 18 /min MD Rosalie Payne Work Phone: [facility] 09-02-2023 14:25-0400 SaO2% (BldA) [Mass fraction] 100 % MD Rosalie Payne Work Phone: [facility] 09-02-2023 14:25-0400 Systolic blood pressure 122 mm[Hg] MD Rosalie Payne Work Phone: [facility] 09-02-2023 11:31-0400 Body height 165.1 cm MD Rosalie Payne Work Phone: [facility] 09-02-2023 11:31-0400 Body temperature 98.4 [degF] MD Rosalie Payne Work Phone: [facility] 09-02-2023 11:31-0400 Body weight 77.11 kg MD Rosalie Payne Work Phone: [facility] 07-25-2023 14:21-0400 Body height 165.1 cm [facility] 07-25-2023 14:21-0400 Body mass index (BMI) [Ratio] 28.3 kg/m2 [facility] 07-25-2023 14:21-0400 Body weight 77.11 kg [facility] 07-25-2023 14:21-0400 Diastolic blood pressure 72 mm[Hg] [facility] 07-25-2023 14:21-0400 Heart rate 81 /min [facility] 07-25-2023 14:21-0400 Systolic blood pressure 111 mm[Hg] [facility] 04-03-2023 14:55-0500 Diastolic blood pressure 87 mm[Hg] Myron Pocos [facility] 04-03-2023 14:55-0500 Heart rate 105 /min Myron Pocos [facility] 04-03-2023 14:55-0500 Mean blood pressure 103 mm[Hg] Myron Pocos [facility] 04-03-2023 14:55-0500 Systolic blood pressure 136 mm[Hg] Myron Pocos [facility] 04-03-2023 14:53-0500 Heart rate 98 /min Myron Pocos [facility] 04-03-2023 14:53-0500 SaO2% (BldA) [Mass fraction] 99 % Myron Pocos [facility] 04-03-2023 14:53-0500 Diastolic blood pressure 96 mm[Hg] Myron Pocos [facility] 04-03-2023 14:53-0500 Mean blood pressure 112 mm[Hg] Myron Pocos [facility] 04-03-2023 14:53-0500 Systolic blood pressure 145 mm[Hg] Myron Pocos [facility] 04-03-2023 14:52-0500 Respiratory rate 16 /min Myron Marroquin [facility] 04-01-2023 10:45-0500 Body height 165.1 cm Destinee Kristine Other [facility] Other 04-01-2023 10:45-0500 Body mass index (BMI) [Ratio] 28.29 kg/m2 Destinee Kristine Other [facility] Other 04-01-2023 10:45-0500 Body temperature 98.1 [degF] Destinee Kristine Other [facility] Other 04-01-2023 10:45-0500 Body weight 77.11 kg Destinee Kristine Other [facility] Other 04-01-2023 10:45-0500 Respiratory rate 18 /min Destinee Kristine Other [facility] Other 04-01-2023 10:45-0500 SaO2% (BldA) [Mass fraction] 99 % Destinee Kristine Other [facility] Other 08-21-2021 11:25-0400 Body height 165.1 cm Carlie Thomas Other [facility] Other 08-21-2021 11:25-0400 Body mass index (BMI) [Ratio] 27.12 kg/m2 Carlie Thomas Other [facility] Other 08-21-2021 11:25-0400 Body temperature 98.6 [degF] Carlie Thomas Other [facility] Other 08-21-2021 11:25-0400 Body weight 73.94 kg Carlie Thomas Other [facility] Other 08-21-2021 11:25-0400 Respiratory rate 18 /min Carlie Thomas Other [facility] Other 08-21-2021 11:25-0400 SaO2% (BldA) [Mass fraction] 97 % Carlie Thomas Other [facility] Other 05-24-2021 20:36-0500 Body temperature 97.7 [degF] Artis clypdttan DO Work Phone: [employer] 05-24-2021 20:36-0500 Diastolic blood pressure 81 mm[Hg] Artis clypdttan DO Work Phone: [employer] 05-24-2021 20:36-0500 Heart rate 101 /min Artis clypdttan DO Work Phone: [employer] 05-24-2021 20:36-0500 Respiratory rate 16 /min Artis clypdttan DO Work Phone: [employer] 05-24-2021 20:36-0500 SaO2% (BldA) [Mass fraction] 97 % Artis The Beauty [employer]ence Fashionsan DO Work Phone: [employer] 05-24-2021 20:36-0500 Systolic blood pressure 131 mm[Hg] Artis clypdttan DO Work Phone: [employer] 05-11-2021 13:10-0500 Body height 165.1 cm Adriana Evangelista Other [facility] Other 05-11-2021 13:10-0500 Body mass index (BMI) [Ratio] 27.12 kg/m2 Adriana Evangelista Other [facility] Other 05-11-2021 13:10-0500 Body temperature 97.8 [degF] Adriana Evangelista Other [facility] Other 05-11-2021 13:10-0500 Body weight 73.94 kg Adriana Evangelista Other [facility] Other 05-11-2021 13:10-0500 Diastolic blood pressure 90 mm[Hg] Adriana Evangelista Other [facility] Other 05-11-2021 13:10-0500 Respiratory rate 18 /min Adriana Evangelista Other [facility] Other 05-11-2021 13:10-0500 SaO2% (BldA) [Mass fraction] 99 % Adriana Evangelista Other [facility] Other 05-11-2021 13:10-0500 Systolic blood pressure 129 mm[Hg] Adirana Evangelista Other [facility] Other 05-01-2021 11:40-0500 Body height 165.1 cm Carlie Lewismond Other [facility] Other 05-01-2021 11:40-0500 Body mass index (BMI) [Ratio] 26.62 kg/m2 Carlie Martha Other [facility] Other 05-01-2021 11:40-0500 Body temperature 98.6 [degF] Carlie Martha Other [facility] Other 05-01-2021 11:40-0500 Body weight 72.58 kg Carlie Martha Other [facility] Other 05-01-2021 11:40-0500 Respiratory rate 18 /min Carlie Thomas Other [facility] Other 05-01-2021 11:40-0500 SaO2% (BldA) [Mass fraction] 99 % Carlie Thomas Other [facility] Other 04-07-2021 12:00-0500 Body height 165.1 cm Sandeep Ramirez Other [facility] Other 04-07-2021 12:00-0500 Body mass index (BMI) [Ratio] 26.62 kg/m2 Sandeep Ramirez Other [facility] Other 04-07-2021 12:00-0500 Body temperature 97.6 [degF] Sandeep Ramirez Other [facility] Other 04-07-2021 12:00-0500 Body weight 72.58 kg Sandeep Ramirez Other [facility] Other 04-07-2021 12:00-0500 SaO2% (BldA) [Mass fraction] 98 % Sandeep Ramirez Other [facility] Other 12-13-2020 23:25-0400 Diastolic blood pressure 89 mm[Hg] David Dominguez MD Work Phone: [employer] Work Phone: 12-13-2020 23:25-0400 Systolic blood pressure 141 mm[Hg] David Dominguez MD Work Phone: [employer] Work Phone: 12-13-2020 23:23-0400 Body height 165.1 cm David Dominguez MD Work Phone: [employer] Work Phone: 12-13-2020 23:23-0400 Body mass index (BMI) [Ratio] 26.63 kg/m2 David Dominguez MD Work Phone: [employer] Work Phone: 12-13-2020 23:23-0400 Body temperature 98.29 [degF] David Dominguez MD Work Phone: [employer] Work Phone: 12-13-2020 23:23-0400 Body weight 72.58 kg David Dominguez MD Work Phone: [employer] Work Phone: 12-13-2020 23:23-0400 Heart rate 79 /min David Dominguez MD Work Phone: [employer] Work Phone: 12-13-2020 23:23-0400 Respiratory rate 14 /min David Dominguez MD Work Phone: [employer] Work Phone: 12-13-2020 23:23-0400 SaO2% (BldA) [Mass fraction] 99 % David Dominguez MD Work Phone: [employer] Work Phone: 09-19-2020 15:56-0400 Body temperature 98.6 [degF] [employer] Work Phone: 09-19-2020 15:56-0400 Diastolic blood pressure 90 mm[Hg] [employer] Work Phone: 09-19-2020 15:56-0400 Heart rate 103 /min [employer] Work Phone: 09-19-2020 15:56-0400 Respiratory rate 16 /min [employer] Work Phone: 09-19-2020 15:56-0400 SaO2% (BldA) [Mass fraction] 100 % [employer] Work Phone: 09-19-2020 15:56-0400 Systolic blood pressure 139 mm[Hg] [employer] Work Phone: Encounters Encounter Date Encounter Type Care Provider Facility Start: 12-23-2024 End: 12-23-2024 Bamboo flowsheet Luna Steen EMG TECHNICIAN Work Phone: [facility] Start: 12-23-2024 End: 12-23-2024 Bamboo flowsheet Luna Enio EMG TECHNICIAN Work Phone: [facility] Start: 12-23-2024 End: 12-23-2024 flow sheet Luna Enio EMG TECHNICIAN Work Phone: [facility] Comment on above: Third trimester preg shakila ([facility]); 31 weeks gestation of ([facility]) Start: 12-23-2024 End: 12-23-2024 ambulatory LUNA STEEN Not Available Start: 12-09-2024 End: 12-09-2024 Bamboo flowsheet Doc William DO Work Phone: [facility] Start: 12-09-2024 End: 12-09-2024 Bamboo flowsheet Doc William DO Work Phone: [facility] Start: 12-09-2024 End: 12-09-2024 flow sheet Doc William DO Work Phone: [facility] Comment on above: Third trimester preg shakila ([facility]); 29 weeks gestation of ([facility]); Yeast infection Start: 12-09-2024 End: 12-09-2024 ambulatory DOC WILLAIM Not Available Start: 11-27-2024 End: 11-27-[address] [facility] Start: 11-25-2024 End: 11-25-2024 Bamboo flowsheet Luna Steen EMG TECHNICIAN Work Phone: [facility] Start: 11-25-2024 End: 11-25-2024 Bamboo flowsheet Luna Steen EMG TECHNICIAN Work Phone: [facility] Start: 11-25-2024 End: 11-25-2024 flow sheet Luna Steen EMG TECHNICIAN Work Phone: [facility] Comment on above: Second trimester pre gnancy ([facility]); 27 weeks gestation of ([facility]); 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 End: 11-25-2024 ambulatory [...] flow sheet Pretty ARELLANO Work Phone: [facility] Comment on above: Second trimester pre gnancy ([facility]); 23 weeks gestation of ([facility]); Diabetes mellitus screening; STD exposure; Well woman exam with routine gynecological exam; Heart palpitations Start: 10-28-2024 End: 10-28-2024 ambulatory PRETTY CHAIDEZ Not Available Start: 10-28-2024 End: 10-28-2024 Bamboo flowsheet Pretty ARELLANO Work Phone: [facility] Start: 10-28-2024 End: 11-03-2024 Bamboo flowsheet Pretty ARELLANO Work Phone: [facility] Start: 10-28-2024 End: 11-03-2024 Clinisync Result Encounter Generic External Data Provider [facility] Department Unsolicited Start: 10-28-2024 End: 10-30-2024 External Result Encounter Lunaselene Steen EMG TECHNICIAN Work Phone: [facility] Unsolicited Start: [...] [facility]) Start: 09-02-2024 End: 09-02-2024 ambulatory PRETTY CHAIDEZ [...] 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 ; 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[facility] Start: 08-05-2024 End: 08-05-2024 ambulatory DOC WILLIAM [...] Start: 12-24-2023 End: 12-24-2023 ambulatory Nereyda Vieira HEATING AND VENTILATING TENDER Work Phone: [facility] Comment on above: Acute pain of left k nee (Primary Dx); Status post arthroscopic reconstruction of anterior cruciate ligament of left knee using quadriceps tendon autograft Start: 12-24-2023 End: 12-24-2023 Bamboo flowsheet Nereydaannita Vieira HEATING AND VENTILATING TENDER Work Phone: [facility] Start: 12-24-2023 End: 12-24-2023 Bamboo flowsheet Nereyda Vieira HEATING AND VENTILATING TENDER Work Phone: [facility] Start: 12-17-2023 [...] Start: 12-03-2023 End: 12-03-2023 ambulatory Nereydaannita Vieira HEATING AND VENTILATING TENDER Work Phone: [facility] Comment on above: Acute pain of left k nee (Primary Dx); Status post arthroscopic reconstruction of anterior cruciate ligament of left knee using quadriceps tendon autograft Start: 12-03-2023 End: 12-03-2023 Bamboo flowsheet Nereydaannita Vieira HEATING AND VENTILATING TENDER Work Phone: [facility] Start: 12-03-2023 End: 12-03-2023 Bamboo flowsheet Nereyda Vieira HEATING AND VENTILATING TENDER Work Phone: [facility] Start: 11-19-2023 End: 11-19-2023 ambulatory Jennifer Dozier HEATING AND VENTILATING TENDER [facility] Comment on above: Acute pain of left k nee (Primary Dx); Status post arthroscopic reconstruction of anterior cruciate ligament of left knee using quadriceps tendon autograft Start: 11-19-2023 End: 11-19-2023 Bamboo flowsheet Jennifer Dozier HEATING AND VENTILATING TENDER [facility] Start: 11-19-2023 End: 11-19-2023 Bamboo flowsheet Jennifer Dozier HEATING AND VENTILATING TENDER [facility] Start: 11-12-2023 End: 11-12-2023 ambulatory Nereyda Vieira HEATING AND VENTILATING TENDER Work Phone: [facility] Comment on above: Acute pain of left k nee (Primary Dx); Status post arthroscopic reconstruction of anterior cruciate ligament of left knee using quadriceps tendon autograft Start: 11-12-2023 End: 11-12-2023 Bamboo flowsheet Nereyda Vieira HEATING AND VENTILATING TENDER Work Phone: [facility] Start: 11-12-2023 End: 11-12-2023 Bamboo flowsheet Nereyda Vieira HEATING AND VENTILATING TENDER Work Phone: [facility] Start: 09-02-2023 Non-patient / Non-visit MD Hector Payne Work Phone: Replaced By [facility] Work Phone: Start: 09-02-2023 End: 09-02-2023 Admission to same day surgery center MD Rosalie Payne Work Phone: [facility] Work Phone: Start: 09-02-2023 End: 09-02-2023 ambulatory MD Rosalie Payne Work Phone: [facility] Work Phone: Start: 07-25-2023 End: 07-25-2023 ambulatory [facility] Work Phone: Start: 07-25-2023 End: 07-25-2023 Patient encounter procedure Replaced By [facility] Work Phone: Start: 04-23-2023 End: 04-23-2023 ambulatory Myron Washburn Pocanaly Facility:[facility] Start: 04-22-2023 Chart abstracting Pepe Khan gs PT Work Phone: [facility] Start: 04-03-2023 End: 04-04-2023 ambulatory Myron Washburn Pocos Facility:[facility] Start: 04-03-2023 End: 04-03-2023 Patient encounter procedure Myron Washburn Vaniaanaly [facility] Start: 04-01-2023 End: 04-01-2023 ambulatory Destinee Carmona Other [employer] Other Start: 04-01-2023 Office outpatient vi sit 15 minutes Destinee Carmona [facility] Start: 05-01-2022 End: 05-01-[address] DOC THOMAS . Facility:[facility] Start: 08-21-2021 End: 08-21-2021 ambulatory Carlie Thomas Other [employer] Other Start: 08-21-2021 Office outpatient vi sit 15 minutes Carlie Thomas [facility] Start: 07-26-2021 End: 07-26-[address] DOC THOMAS . Facility:[facility] Start: 05-24-2021 Emergency department patient visit ARTIS YODER [facility] Start: 05-24-2021 End: 05-24-2021 Emergency department patient visit Artis Yoder DO Work Phone: [facility] Comment on above: Contusion of left kn ee, initial encounter (Primary Dx) Start: 05-11-2021 End: 05-11-2021 ambulatory Adriana Evangelista Other [employer] Other Start: 05-11-2021 Office outpatient vi sit 15 minutes Adriana Evangelista [facility] Start: 05-01-2021 (URG) Urgent Care Visit Carlie Cherry dwight [facility] Start: 05-01-2021 End: 05-01-2021 ambulatory Carlie Martha Other [employer] Other Start: 04-07-2021 End: 04-07-2021 ambulatory Sandeep Ramirez Other [employer] Other Start: 04-07-2021 Office outpatient vi sit 15 minutes Sandeep Ramirez [facility] Start: 12-14-2020 End: 12-14-2020 Emergency department patient visit DAVID DOMINGUEZ [facility] Start: 12-14-2020 End: 12-14-2020 Emergency department patient visit David Dominguez MD Work Phone: [facility] Comment on above: Tailbone injury, ini tial encounter (Primary Dx) Start: 09-19-2020 End: 09-19-2020 Emergency department patient visit [facility] Comment on above: Closed head injury, initial encounter (Primary Dx) Start: 07-15-2017 End: 07-18-2017 Ambulatory DAVID BECERRIL [facility] Start: 05-15-2017 End: 05-15-2017 Ambulatory DAVID BECERRIL [facility] Start: 04-30-2017 End: 04-30-2017 Ambulatory DAVID BECERRIL [facility] Start: 04-29-2017 End: 04-30-2017 Ambulatory DAVID BECERRIL [facility] Start: 03-13-2017 End: 03-14-2017 Ambulatory BLANCA PABLO Facility:[facility] Procedures Date Procedure Procedure Detail Performing Clinician Start: 12-23-2024 Urnls dip stick/tablet rgnt non-auto w/o micrscp Luna Steen NP Work Phone: Start: 12-09-2024 Urnls dip stick/tablet rgnt non-auto w/o micrscp Doc William DO Work Phone: Start: 11-25-2024 Urnls dip stick/tablet rgnt non-auto w/o micrscp Luna Steen EMG TECHNICIAN Work Phone: Start: 11-24-2024 CA ECHO DOPPLER COMPLETE Generic Externa l Data Provider Start: 11-12-2024 ECG 12-LEAD Generic External Data Provider Start: 11-03-2024 ALL CBC WITH AUTO DIFF Luna Steen EMG TECHNICIAN Work Phone: Start: 10-28-2024 RECURRENT VAGINITIS (HTRX) Luna patel EMG TECHNICIAN Work Phone: Start: 10-28-2024 Urnls dip stick/tablet rgnt non-auto w/o micrscp Luna Steen EMG TECHNICIAN Work Phone: Start: 10-28-2024 IGP,APTIMA HPV,AGE GDLN [...] knee using quadriceps tendon autograft Nereyda Vieira HEATING AND VENTILATING TENDER Work Phone: Start: 05-24-2021 Radiologic examination knee [...] knee using bone-patellar tendon-bone autograft Myron Washburn Pocanayl DO Work Phone: History of reconstru ction of anterior cruciate ligament tear Status post arthroscopic reconstruction of anterior cruciate ligament of left knee using quadriceps tendon autograft Pepe Kirby PT Work Phone: History of reconstru ction of anterior cruciate ligament tear Status post arthroscopic reconstruction of anterior cruciate ligament of left knee using quadriceps tendon autograft Nereyda Vieira HEATING AND VENTILATING TENDER Work Phone: History of reconstru ction of anterior cruciate ligament tear Status post arthroscopic reconstruction of anterior cruciate ligament of left knee using quadriceps tendon autograft Pepe Kirby PT Work Phone: History of reconstru ction of anterior cruciate ligament tear Status post arthroscopic reconstruction of anterior cruciate ligament of left knee using quadriceps tendon autograft Nereyda Vieira HEATING AND VENTILATING TENDER Work Phone: History of reconstru ction of anterior cruciate ligament tear Status post arthroscopic reconstruction of anterior cruciate ligament of left knee using quadriceps tendon autograft Nereyda Vieira HEATING AND VENTILATING TENDER Work Phone: History of reconstru ction of anterior cruciate ligament tear Status post arthroscopic reconstruction of anterior cruciate ligament of left knee using quadriceps tendon autograft Jennifer Halejanak HEATING AND VENTILATING TENDER Laparoscopic excisio n of cyst of left ovary Myron Marroquin Plan of Treatment Date Care Activity Detail Author Start: 09-14-2025 Influenza vaccination Influenza Vacc ine (#1) [facility] Comment on above: Postponed from 11/16 (Patient Refused) Start: 12-23-2024 End: 12-23-2024 Patient encounter procedure KYE OLS[facility] Comment on above: Arrived Start: 12-23-2024 End: 12-23-2024 Professional / ancillary services management 12/23/2024 1:30 PM EDT Ancillary Procedure KYE OLSON [address] [place] [address] [place] [id number] KYE [facility] Start: 12-09-2024 End: 12-09-2024 Patient encounter procedure KYE OLSON Comment on above: Arrived Start: 11-25-2024 End: 05-25-2025 US biophysical profile w non stress test US biophysical profile w non stress test 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/2024 (Approximate), Expires: 05/25/2025 [facility] Work Phone: Comment on above: Expected: 11/25/2024 (Approximate), Expires: 05/25/2025 Start: 11-25-2024 End: 03-27-2025 US for US OB follow up transabdominal approach 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/2024, Expires: 03/27/2025 [facility] Comment on above: Expected: 11/25/2024 [...] Heart palpitations Expected: 10/28/2024 (Approximate), Expires: 10/28/2025 [facility] Comment on above: Expected: 10/28/2024 (Approximate), Expires: 10/28/2025 Start: 10-28-2024 End: 10-28-2025 CBC panel - Blood by Automated count CBC Lab Routine Diabetes mellitus screening Expected: 10/28/2024 (Approximate), Expires: 10/28/2025 [facility] Work Phone: Comment on above: Expected: 10/28/2024 (Approximate), Expires: 10/28/2025 Start: 10-28-2024 End: 10-28-2026 Echocardiogram 2D complete Echocardiogram 2D complete Echocardiography Routine Heart palpitations Expected: 10/28/2024 (Approximate), Expires: 10/28/2026 [facility] Comment on above: Expected: 10/28/2024 (Approximate), Expires: 10/28/2026 Start: 10-28-2024 End: 10-28-2025 Measurement of glucose 1 hour after glucose challenge for glucose tolerance test Glucose tolerance, 1 hour Lab Routine Diabetes mellitus screening Expected: 10/28/2024 (Approximate), Expires: 10/28/2025 [facility] Comment on above: Expected: 10/28/2024 (Approximate), Expires: 10/28/2025 Start: 09-30-2024 End: 09-30-2024 Patient encounter procedure 09/30/2024 3:40 PM EDT Routine [facility] [address] [facility] [facility] [place] [id number] Doc Thomas, DO [address] [facility] [place] [address] [facility] Start: 09-30-2024 End: 09-30-2024 Professional / ancillary services management 09/30/2024 2:30 PM EDT Ancillary Procedure [facility] [address] [facility] [facility] [place] [address] [facility] Start: 09-02-2024 End: [...] [facility]) Expected: 09/02/2024, Expires: 12/03/2024 [facility] Work [...] [facility] [address] [place] [address] Myron Marroquin, [address] [facility] [place] [address] [facility] Start: 02-19-2024 End: 02-19-2024 Patient encounter procedure 02/19/2024 3:30 PM EST Office Visit [facility] [address] [facility] [address] [place] [address] Rosalie Payne MD [address] [facility] [address] [place] [address] (Fax) 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CMS/HCC); Chronic fatigue; Cigarette [...] [facility] [address] [place] [phone] Pepe Kirby, PT [address] [place] [address] [facility] Start: 01-14-2024 End: 01-14-2024 ambulatory 01/14/2024 3:30 PM EDT Treatment [facility] [address] [place] [phone] Nereyda Vieira, HEATING AND VENTILATING TENDER [address] [place] [address] [facility] Start: 01-10-2024 End: 01-10-2024 ambulatory 01/10/2024 2:30 PM EDT Treatment [facility] [address] [place] [phone] Pepe Kirby, PT [address] [place] [address] [facility] Start: 01-07-2024 End: 01-07-2024 ambulatory 01/07/2024 3:30 PM EDT Treatment [facility] [address] [place] [phone] Pepe Kirby, PT [address] [place] [address] [facility] Start: 01-03-2024 End: 01-03-2024 ambulatory 01/03/2024 2:30 PM EDT Treatment [facility] [address] [place] [phone] Pepe Kirby, PT [address] [place] [address] [facility] Start: 12-31-2023 End: 12-31-2023 ambulatory 12/31/2023 3:30 PM EDT Treatment [facility] [address] [place] [phone] Jennifer Dozier, HEATING AND VENTILATING TENDER [facility] Start: 12-27-2023 End: 12-27-2023 ambulatory [facility] Comment on above: Arrived Start: 12-24-2023 End: 12-24-2023 ambulatory 12/24/2023 3:00 PM EDT Treatment [facility] [address] [place] [phone] Nereyda Vieira, HEATING AND VENTILATING TENDER [address] [place] [address] [facility] Start: 12-17-2023 End: 12-17-2023 ambulatory 12/17/2023 3:00 PM EDT Treatment [facility] [address] [place] [phone] Pepe Kirby, PT [address] [place] [address] [facility] Start: 12-09-2023 End: 12-09-2023 Patient encounter procedure [facility] Comment on above: Arrived Start: 12-03-2023 End: 12-03-2023 ambulatory 12/03/2023 3:30 PM EDT Treatment [facility] [address] [place] [phone] Nereyda Vieira, HEATING AND VENTILATING TENDER [address] [place] [address] Arrived [facility] Comment on above: Arrived Start: 11-19-2023 End: 11-19-2023 ambulatory [facility] Comment on above: Acute pain of left k nee (Primary Dx); Status post arthroscopic reconstruction of anterior cruciate ligament of left knee using quadriceps tendon autograft Start: 11-17-2023 Influenza vaccination Influenza Vacc ine (#1) [facility] Start: 09-02-2023 [facility] Start: 05-07-2023 End: 05-07-2023 Patient encounter procedure 05/07/2023 11:10 AM EST Office Visit [facility] [address] [place] [address] Doc Thomas, DO [address] [place] [address] [facility] Start: 05-03-2023 End: 05-03-2023 Patient encounter procedure 05/03/2023 11:00 AM EST Office Visit [facility] [address] [place] [address] Myron Marroquin, DO [address] [place] [address] [facility] Start: 04-23-2023 End: 04-23-2023 Patient encounter procedure 04/23/2023 8:00 AM EST Procedure Visit [facility] Myron Marroquin, DO [address] [facility] [place] [address] [facility] Start: 04-22-2023 End: 04-22-2023 ambulatory 04/22/2023 2:30 PM EST Evaluation [facility] [address] [place] [address] Pepe Kirby, PT [address] [place] [address] [facility] Start: 11-16-2022 Influenza vaccination Influenza Vacc ine (#1) [facility] Start: 08-30-2021 DTaP/Tdap/Td vaccine (5 - Td or Tdap) DTaP/Tdap/Td vaccine (5 - Td or Tdap) [facility] Start: 11-16-2020 Influenza vaccination Flu vaccine (# 1) [facility] Start: 06-09-2020 Screening for malign ant neoplasm of cervix [facility] Start: 06-09-2018 DTaP/Tdap/Td vaccine (1 - Tdap) DTaP/Tdap/Td vaccine (1 - Tdap) [facility] Work Phone: Start: 2015 Screening for Chlamy jasper trachomatis Chlamydia screen [facility] Start: 06-09-2014 HIV screening HIV screen [facility] Start: 11-23-2011 Varicella vaccine (2 of 2 - 2-dose childhood series) Varicella vaccine (2 of 2 - 2-dose childhood series) [facility] Start: 2011 COVID-19 Vaccine (1) COVID-19 Vaccin e (1) [facility] Work Phone: Start: 2011 Depression Screen Depression Screen [facility] Start: 06-09-2010 HPV vaccine (1 - 2-d ose series) HPV vaccine (1 - 2-dose series) [facility] Start: 06-09-2004 COVID-19 Vaccine (1) COVID-19 Vaccin e (1) [facility] Start: 06-09-2000 Varicella vaccine (1 of 2 - 2-dose childhood series) Varicella vaccine (1 of 2 - 2-dose childhood series) [facility] Phone: Start: 1999 Hepatitis C screening Hepatitis C [facility] Bacteria identified in Urine by Culture Urine culture Microbiology Routine Missed menses Ordered: 07/16/2024 [facility] Comment on above: Ordered: 07/16/2024 CBC W Auto Different ial panel - Blood CBC and differential Lab Routine Missed menses , unspecified gestational age Ordered: 07/16/2024 [facility] Comment on above: Ordered: 07/16/2024 CHLAMYDIA TRACHOMATI S (GENITO/STI) CHLAMYDIA TRACHOMATIS (GENITO/STI) Lab Routine STD exposure Ordered: 10/28/2024 [facility] Comment on above: Ordered: 10/28/2024 Cytology Cervical or vaginal smear or scraping study Pap Smear Pathology and Cytology Routine Well woman exam with routine gynecological exam Ordered: 10/28/2024 [facility] Comment on above: Ordered: 10/28/2024 Hemoglobin A1c/Hemoglobin.total in Blood Hemoglobin A1c Lab Routine Missed menses , unspecified gestational age Ordered: 07/16/2024 [facility] Comment on above: Ordered: 07/16/2024 Hepatitis B virus surface Ag [Presence] in Serum or Plasma by Immunoassay Hepatitis B surface antigen Lab Routine Missed menses , unspecified gestational age Ordered: 07/16/2024 [facility] Comment on above: Ordered: 07/16/2024 Hepatitis C virus Ab [Presence] in Serum or Plasma by Immunoassay Hepatitis C antibody Lab Routine Missed menses , unspecified gestational age Ordered: 07/16/2024 [facility] Comment on above: Ordered: 07/16/2024 HIV-1/HIV-2 antigen/antibody combination immunoassay HIV-1 and HIV-2 antibodies Lab Routine Missed menses , unspecified gestational age Ordered: 07/16/2024 [facility] Comment on above: Ordered: 07/16/2024 Neisseria gonorrhoea e DNA [Presence] in Unspecified specimen by QUEENIE with probe detection Neisseria gonorrhea DNA probe, direct Lab Routine STD exposure Ordered: 10/28/2024 [facility] Comment on above: Ordered: 10/28/2024 Patient Education Hiatal hernia Hemorrhoids Gastritis [facility] your [facility] Work Phone: Reagin Ab [Presence] in Serum by RPR RPR Lab Routine Missed menses , unspecified gestational age Ordered: 07/16/2024 [facility] Comment on above: Ordered: 07/16/2024 Rubella antibody, IgG Rubella an tibody, IgG Lab Routine Missed menses , unspecified gestational age Ordered: 07/16/2024 [facility] Comment on above: Ordered: 07/16/2024 SURESWAB(R) ADVANCED VAGINITIS PLUS, TMA SURESWAB(R) ADVANCED VAGINITIS PLUS, TMA Pathology and Cytology Routine STD exposure Ordered: 10/28/2024 [facility] Comment on above: Ordered: 10/28/2024 End: 08-05-2025 Thyrotropin [Units/volume] in Serum or Plasma TSH Lab Routine 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CMS/HCC) [id number] for 6 Occurrences starting 08/05/2024 until 08/05/2025 [facility] Work Phone: Comment on above: [id number] for 6 Occurr ences starting 08/05/2024 until 08/05/2025 US Pelvis transvaginal US OB tra nsvaginal Imaging Routine Missed menses 07/16/2024 1:59 PM EDT [facility] Immunizations Immunization Date Immunization Notes Care Provider Fa nicolette 11-12-2016 hepatitis B vaccine, adult dosage Pepe Lilo PT Work Phone: [facility] 11-12-2016 meningococcal oligosaccharide (groups A, C, Y and W-135) diphtheria toxoid conjugate vaccine (MCV4O) Pepe Lilo PT Work Phone: [facility] 03-31-2012 hepatitis A vaccine, pediatric/adolescent dosage, 2 dose schedule Pepe Lilo PT Work Phone: [facility] 08-31-2011 hepatitis A vaccine, pediatric/adolescent dosage, 2 dose schedule Pepe Lilo PT Work Phone: [facility] 08-31-2011 tetanus toxoid, redu leyla diphtheria toxoid, and acellular pertussis vaccine, adsorbed Pepe Lilo PT Work Phone: [facility] 08-31-2011 varicella virus vaccine Pepe Lilo PT Work Phone: [facility] 09-11-2000 haemophilus influenz ae type b conjugate and Hepatitis B vaccine Pepe Lilo PT Work Phone: [facility] 09-11-2000 haemophilus influenz ae type b vaccine, HbOC conjugate Pepe Lilo PT Work Phone: [facility] 09-11-2000 hepatitis B vaccine, pediatric or pediatric/adolescent dosage Pepe Lilo PT Work Phone: [facility] 09-11-2000 measles, mumps and r ubella virus vaccine Pepe Lilo PT Work Phone: [facility] 09-11-2000 poliovirus vaccine, inactivated Pepe Kirby PT Work Phone: [facility] 03-26-2000 DTaP-Haemophilus influenzae type b conjugate vaccine Pepe Kirby PT Work Phone: [facility] 03-26-2000 pneumococcal conjuga te vaccine, 7 valent Pepe Kirby PT Work Phone: [facility] 1999 diphtheria, tetanus toxoids and acellular pertussis vaccine, Haemophilus influenzae type b conjugate, and poliovirus vaccine, inactivated (CPjY-Fft-VDW) Pepe Kirby PT Work Phone: [facility] 1999 diphtheria, tetanus toxoids and acellular pertussis vaccine, Haemophilus influenzae type b conjugate, and poliovirus vaccine, inactivated (DRxV-Toa-NVS) Pepe Kirby PT Work Phone: [facility] 1999 hepatitis B vaccine, pediatric or pediatric/adolescent dosage Pepe Kirby PT Work Phone: [facility] 1999 hepatitis B vaccine, pediatric or pediatric/adolescent dosage Pepe Kirby PT Work Phone: [facility] Payers Date Payer Category Payer Self-pay 2023 Unknown [id number] 2022 Unknown [id number] 2022 Blue Cross Blue Shield 1.2.8 [id number] 2022 Unknown [id number] [id number] 2020 Unknown [id number] 1.2.840.3475[id number] 2006 Private Health Insurance [id number] 1999 Unknown [id number] 2.16.8 40.1.039988.3.579.2.173 1999 Unknown [id number] 2.16.8 40.1.995042.3.579.2.173 1999 Unknown [id number] 2.16.8 40.1.653950.3.579.2.173 1999 Unknown [id number] 2.16.84 0.1.780787.3.579.2.593 1999 Unknown [id number] 2.16.84 0.1.341814.3.579.2.593 1999 Unknown [id number] 2.16.8 40.1.916029.3.579.2.727 1999 Unknown [id number] 2.16.8 40.1.494713.3.579.2.727 1999 Unknown [id number] 2.16.8 40.1.705084.3.579.2.1259 1999 Unknown [id number] 2.16.8 40.1.663378.3.579.2.1259 1999 Unknown [id number] 2.16.8 40.1.474696.3.579.2.1259 1999 Unknown [id number] 2.16.8 40.1.778333.3.579.2.1259 1999 Unknown [id number] 2.16.8 40.1.645830.3.579.2.1259 1999 Unknown [id number] 2.16.8 40.1.052872.3.579.2.1259 1999 Unknown [id number] 2.16.8 40.1.686621.3.579.2.1259 1999 Unknown [id number] 2.16.84 0.1.209523.3.579.2.1259 1999 Unknown [id number] 2.16.84 0.1.917298.3.579.2.1259 1999 Unknown [id number] 2.16.84 0.1.933259.3.579.2.1259 1999 Unknown [id number] 2.16.84 0.1.276012.3.579.2.1259 1999 Unknown [id number] 2.16.84 0.1.229897.3.579.2.1259 1999 Unknown [id number] 2.16.84 0.1.787406.3.579.2.1259 1959 Unknown [id number] 2.1 6.840.1.208281.19 1959 Unknown [id number] [facility] GTFAN [id number] 2.16.840.1.888439.19 Unknown [id number] 2.16.8 40.1.583481.3.579.2.531 Social History Date Type Detail Facility Start: 09-19-2020 End: 12-14-2020 Tobacco smoking status [facility] Never smoker [facility] Phone: Start: 09-19-2020 End: 05-10-2023 Tobacco use and exposure Never used [employer] Start: 1999 Sex Assigned At Not on file [facility]: Exposure to SARS-CoV -2 (event) Not sure [facility] Start: 12-14-2020 End: 05-24-2021 Alcohol intake Current drinker of alcohol (finding) [facility] Phone: Start: 12-14-2020 Alcohol Comment Rare [facility] Phone: Start: 12-11-2022 End: 02-26-2024 Sex Assigned At [facility] Tobacco Current vaping o r e-cigarette use Smokeless Tobacco Use:. Vaping [facility] Tobacco smoking status No Smokin g Status Entered [facility] Start: 02-09-2023 End: 05-10-2023 Tobacco smoking status [facility] Occasional tobacco smoker [facility] Start: 04-15-2023 [...] Start: 07-25-2023 End: 09-02-2023 Tobacco smoking status CO[facility] Smoker (finding) [facility] History of tobacco use Cigarette Smoker [facility] Start: 05-30-2024 [facility] Goals Date Patient Goal Desired Activity /State Functional Status Date Assessment Result Facility 04-03-2023 Functional Status No [facility] Clinical Notes 04-07-2021 to 12-23-2024 Luna [...] Left 2019 OVARIAN CYST REMOVAL Left 05/20/2020 [facility] William VAGINAL DELIVERY REVIEW OF SYSTEMS [...] nursing note reviewed. Exam conducted with a otter trawler boatswain present. Vitals: Estimated body mass index is 29.42 kg/m as calculated from the following: Height as of 02/26/24: 5' 4 . Weight as of this encounter: 171 lb 6.4 oz. BP: 110/70 Patient's last menstrual period was 05/16/2024. ASSESSMENT & PLAN ICD-10-CM 1. Third trimester ([facility]) Z34.93 2. 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 Exam conducted with a otter trawler boatswain present. Vitals: Estimated body mass index is 28.84 kg/m as calculated from the following: Height as of 02/26/24: 5' 4 . Weight as of this encounter: 168 lb. BP: 110/74 Patient's last menstrual period was 05/16/2024. ASSESSMENT & PLAN ICD-10-CM 1. Third trimester ([facility]) Z34.93 POCT urinalysis dipstick manually resulted 2. 29 weeks gestation of ([facility]) Z3A.29 Return OB: Patient presents today for [...] Doc Thomas DO documented in this encounter [facility] 11-27-2024 Note [facility] Note Reason for cardiology consult: Cardiogenic syncope Chief Complaint: Syncope HPI: summer Matthew is a 24 y.o. female with history of neurocardiogenic syncope diagnosed about 6 years ago, Gabby disease, chronic fatigue, overweight, anxiety/depression Patient is now 28 weeks . She reports that she was diagnosed with neurocardiogenic syncope about 6 years ago by [facility] cardiology and she was on [...] , Rfl: no.37/i (more content not included)... [facility] 11-25-2024 History of Present illness Narrative [...] Left 2019 OVARIAN CYST REMOVAL Left 05/20/2020 [facility] William VAGINAL DELIVERY REVIEW OF SYSTEMS [...] nursing note reviewed. Exam conducted with a otter trawler boatswain present. Vitals: Estimated body mass index is 29.95 kg/m as calculated from the following: Height as of 02/26/24: 5' 4 . Weight as of this encounter: 174 lb 8 oz. BP: 110/60 Patient's last menstrual period was 05/16/2024. ASSESSMENT & PLAN ICD-10-CM 1. Second trimester ([facility]) Z34.92 POCT urinalysis dipstick manually resulted 2. 27 weeks gestation of ([facility]) Z3A.27 3. 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 Exam conducted with a otter trawler boatswain present. Vitals: Estimated body mass index is [...] Luna Steen NP documented in this encounter [facility] 09-30-2024 History of Present illness Narrative Reason [...] Left 2019 OVARIAN CYST REMOVAL Left 05/20/2020 [facility] William VAGINAL DELIVERY REVIEW OF SYSTEMS [...] nursing note reviewed. Exam conducted with a otter trawler boatswain present. Vitals: Estimated body mass index is 28.29 kg/m as calculated from the following: Height as of 02/26/24: 5' 4 . Weight as of this encounter: 164 lb 12.8 oz. BP: 110/72 Patient's last menstrual period was 05/16/2024. ASSESSMENT & PLAN ICD-10-CM 1. 19 weeks gestation of ([facility]) Z3A.19 POCT urinalysis dipstick manually resulted 2. Second trimester ([facility]) Z34.92 POCT urinalysis dipstick manually resulted Patient [...] Doc Thomas DO documented in this encounter [facility] 09-02-2024 History of Present illness Narrative Reason [...] Left 2019 OVARIAN CYST REMOVAL Left 05/20/2020 [facility] William VAGINAL DELIVERY REVIEW OF SYSTEMS [...] nursing note reviewed. Exam conducted with a otter trawler boatswain present. Vitals: Estimated body mass index is 30.21 kg/m as calculated from the following: Height as of 02/26/24: 5' 4 . Weight as of 08/05/24: 176 lb. BP: Patient's last menstrual period was 05/16/2024. ASSESSMENT & PLAN ICD-10-CM 1. Second trimester ([facility]) Z34.92 Alpha fetoprotein, maternal Alpha fetoprotein, maternal [...] of: ADAN Gonzalez documented in this encounter [facility] 08-05-2024 History of Present illness Narrative Reason [...] Left 2019 OVARIAN CYST REMOVAL Left 05/20/2020 [facility] William VAGINAL DELIVERY REVIEW OF SYSTEMS [...] nursing note reviewed. Exam conducted with a otter trawler boatswain present. Vitals: Estimated body mass index is [...] Doc Thomas DO documented in this encounter [facility] 07-16-2024 History of Present illness Narrative Reason [...] Left 2019 OVARIAN CYST REMOVAL Left 05/20/2020 [facility] [place] VAGINAL DELIVERY Allergies Allergen Reactions [...] Aliya Aguilar LPN documented in this encounter [facility] 02-26-2024 History of Present illness Narrative Images [...] Left 2019 OVARIAN CYST REMOVAL Left 05/20/2020 [facility] [place] VAGINAL DELIVERY FAMILY HISTORY: Family [...] 7:42 AM EST documented in this encounter [facility] 02-19-2024 History of Present illness Narrative Images [...] Iron and TIBC documented in this encounter [facility] 12-27-2023 History of Present illness Narrative Physical [...] at this time. documented in this encounter [facility] 12-17-2023 History of Present illness Narrative Physical [...] Continue as tolerated. documented in this encounter [facility] 12-09-2023 History of Present illness Narrative Images from the original note were not included. @[email or web address]@ [facility] Matthew is a 23 y.o. female who [...] operative report and arthroscopic photos available in [facility]. Following the surgery in April 2023, she [...] Left 2019 OVARIAN CYST REMOVAL Left 05/20/2020 [facility] William VAGINAL DELIVERY FAMILY HISTORY: Family [...] note was created using voice recognition through [employer] documented in this encounter [facility] 09-02-2023 Procedure note [facility] 09-02-2023 History and physical note Note Date/Time September 02, 2023 11:40am [facility] [address] [place] [address] Gastroenterology H&P Signed Patient: Aleta Castro MR#: [id number] : 2000 Acct:[id number] Age/Sex: 23 / F Adm Date: 4 Loc: Room: Type: [facility] Attending Dr: Marcelle Patel DO Copies [...] by Marcelle Patel DO> 09/02/23 1140 [facility] Work Phone: 1(162) 997-478206-17-2024 [facility] [id number] Evaluation note* Encounter Date Diagnosis Assessment [...] follow up with PCP if symptoms persist. [facility] Other 06-06-2022 Evaluation note* Encounter Date Diagnosis [...] or concerns Aug, Bronchitis (ICD-10 - J40) [facility] Other 03-09-2022 Hospital Discharge instructions* Instructions* Artis [...] be sent through Care Everywhere. * Contusion (Brazilian) * Knee Pain or Injury (Brazilian) * RICE: General Info (Brazilian) [facility] Work Phone: 1(589) 644-505402-24-2022 Evaluation note* Encounter Date Diagnosis Assessment Notes Treatment Notes Treatment Clinical Notes Apr, Oral thrush (ICD-10 - B37.0) Use medication as directed. Change toothbrush. Follow up with PCP if symptoms do not improve with treatment [facility] Other 02-14-2022 Evaluation note* Encounter Date Diagnosis [...] Patient care instructions given in writting by [facility] Care At Home document. [facility] Other 01-21-2022 Evaluation note* Encounter Date Diagnosis [...] Patient care instructions given in writting by [facility] Care At Home document. [facility] Other Evaluation + Plan note Future Appointments Appointment Date:04/23/2023 07:30:00 AM Scheduled Provider: Location:[facility] Diagnosis Closed head injury, initial encounter- Primary documented in this encounter [facility] Phone: [email or web address] note* Diagnosis Tailbone injury, initial encounter- Primary documented in this encounter [facility] Phone: evaluhalwh note* Diagnosis Contusion of left knee, initial encounter- Primary documented in this encounter [facility] Phone: [email or web address] note* Diagnosis Onset Date Resolution Status Diarrhea acute GERD (gastroesophageal reflux disease) acute Lower abdominal pain acute Nausea acute [facility] Work Phone: Evaluation note* Diagnosis Onset Date Resolution Status Diarrhea acute Dysphagia acute GERD (gastroesophageal reflux disease) acute Lower abdominal pain acute Nausea acute [facility] Work Phone: Evaluation note* Diagnosis Acute pain of left knee- Primary Status post arthroscopic reconstruction of anterior cruciate ligament of left knee using quadriceps tendon autograft documented in this encounter [facility]* Diagnosis Acute pain of [...] 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 [facility] Diagnosis Second trimester (HHS-HCC) state, incidental 15 weeks gestation of ([facility]) Screening, , for anatomic survey ([facility]) Encounter for anatomic survey [facility]* Diagnosis 19 weeks gestation of (HHS-HCC) Second trimester ([facility]) state, incidental [facility]* Diagnosis Second trimester (HHS-HCC) state, incidental 23 weeks gestation of ([facility]) Diabetes mellitus screening Screening for diabetes mellitus STD exposure Well woman exam with routine gynecological exam Routine gynecological examination Heart palpitations Palpitations [facility] Diagnosis Second trimester (HHS-HCC) state, incidental 27 weeks gestation of ([facility]) Gabby's disease Chronic lymphocytic thyroiditis [facility]* Diagnosis Third trimester (HHS-HCC) state, incidental 29 weeks gestation of ([facility]) Yeast infection [facility] Diagnosis Third trimester (HHS-HCC) state, incidental 31 weeks gestation of ([facility]) documented [facility] this [facility] Narrative - Reported* Type Description Date Medical History Hypothyroidism Medical History cardiovascular syncope Medical History chronic depression Surgical History left ovarian cyst Hospitalization History child [facility] Other Hospital course Narrative No data available for this section [facility] Attachments The following attachments cannot be sent through Care Everywhere. * Head Injury: Closed: General Info (Brazilian) documented in this encounterFlower HospitalMobile Experience Phone: Hospital Discharge instructions* Attachments The following attachments cannot be sent through Care Everywhere. * Coccyx Injury (Brazilian) [facility]: Hospital Discharge instructions No data available for this section [facility] No data available for this section [facility] Summary Purpose Family History No Family [...] section and content) DATE CREATED AUTHOR 09/05/2017 [facility] DATE CREATED AUTHOR AUTHOR'S ORGANIZ ATION 09/05/2017 [facility] DATE CREATED AUTHOR AUTHOR'S ORGANIZ ATION 10/28/2019 [facility] DATE CREATED AUTHOR AUTHOR'S ORGANIZ ATION 05/26/2021 [facility] DATE CREATED AUTHOR AUTHOR'S ORGANIZ ATION 05/10/2022 [facility] DATE CREATED AUTHOR AUTHOR'S ORGANIZ ATION 07/24/2022 [facility] DATE CREATED AUTHOR AUTHOR'S ORGANIZ ATION 05/15/[address] [facility] DATE CREATED AUTHOR AUTHOR'S ORGANIZ ATION 09/11/2023 [facility] DATE CREATED AUTHOR AUTHOR'S ORGANIZ ATION 02/08/2024 [facility] DATE CREATED AUTHOR AUTHOR'S ORGANIZ ATION 11/30/2024 [facility] DATE CREATED AUTHOR AUTHOR'S ORGANIZ ATION 12/26/2024 [facility] EPIC Reason for Visit (unrecogniz ed section and content) Reason Comments Head Injury headbutted repeated 10 times today around 1255 Headache Nausea Reason Comments Other Pt had a chair pulle d out from under her while at work. Pt fell onto hard ground. Pain in lower back. Reason Comments Knee Pain left knee, was kicke d by resident at [facility] at approx 1930 Specialty Diagnoses / Procedures Referred By Neo amato Referred To Contact Physical Therapy Diagnoses Other specified postprocedural states Personal history of other diseases of the musculoskeletal system and connective tissue Procedures W[place] THERAPEUTIC PX 1/> AREAS EACH 15 MIN EXERCISES Myron Marroquin, DO [address] [place], [place] Pepe Kirby, PT [address] [place] [address] Referral ID Status Reason Start Date Expiration Date V isits Requested Visits Authorized [id number] Authorized 09/10/2023 03/08/2024 99 99 Reason Comments [...] Care Teams (unrecognized sec tion and content) Cut To Length Operator Relationship Specialty Start Date End Date Rosalie Payne MD [address] [place] [address] PCP - General 05/24/21 Cut To Length Operator Relationship Specialty Start Date End Date Rosalie Payne MD [address] [place] [address] PCP - General Family Medicine 07/24/22 Team [...] Other Provider Active Start: September 02, 2023 Cut To Length Operator Relationship Specialty Start Date End Date Rosalie Payne MD [address] [place] [address] (Fax) PCP - General Family Medicine 07/24/22 Cut To Length Operator Relationship Specialty Start Date End Date Rosalie Payne MD [address] [place] [address] (Fax) PCP - General Family Medicine 07/24/22 Cut To Length Operator Relationship Specialty Start Date End Date Rosalie Payne MD [address] [place] [address] (Fax) PCP - General Family Medicine 07/24/22 Cut To Length Operator Relationship Specialty Start Date End Date Rosalie Payne MD [address] [place] [address] (Fax) PCP - General Family Medicine 07/24/22 Cut To Length Operator Relationship Specialty Start Date End Date Rosalie Payne MD [address] [place] [address] (Fax) PCP - General Family Medicine 07/24/22 Cut To Length Operator Relationship Specialty Start Date End Date Rosalie Payne MD [address] [place] [address] (Fax) PCP - General Family Medicine 07/24/22 Cut To Length Operator Relationship Specialty Start Date End Date Rosalie Payne MD [address] [place] [address] (Fax) PCP - General Family Medicine 07/24/22 Cut To Length Operator Relationship Specialty Start Date End Date Rosalie Payne MD [address] [place] [address] (Fax) PCP - General Family Medicine 07/24/22 Cut To Length Operator Relationship Specialty Start Date End Date Rosalie Payne MD [address] [place] [address] (Fax) PCP - General Family Medicine 07/24/22 Cut To Length Operator Relationship Specialty Start Date End Date Rosalie Payne MD [address] [place] [address] (Fax) PCP - General Family Medicine 07/24/22 Cut To Length Operator Relationship Specialty Start Date End Date Rosalie Payne MD [address] [place] [address] (Fax) PCP - General Family Medicine 07/24/22 Cut To Length Operator Relationship Specialty Start Date End Date Rosalie Payne MD [address] [place] [address] (Fax) PCP - General Family Medicine 07/24/22 Rosalie Payne MD [address] [place] [address] (Fax) PCP - [employer] 06/16/20 Cut To Length Operator Relationship Specialty Start Date End Date Rosalie Payne MD [address] [place] [address] (Fax) PCP - General Family Medicine 07/24/22 Rosalie Payne MD [address] [place] [address] (Fax) PCP - [employer] 06/16/20 Cut To Length Operator Relationship Specialty Start Date End Date Rosalie Payne MD [address] [place] [address] (Fax) PCP - General Family Medicine 07/24/22 Rosalie Payne MD [address] [place] [address] (Fax) PCP - [employer] 06/16/20 Cut To Length Operator Relationship Specialty Start Date End Date Rosalie Payne MD [address] [place] [address] (Fax) PCP - General Family Medicine 07/24/22 Rosalie Payne MD [address] [place] [address] (Fax) PCP - [employer] 06/16/20 Cut To Length Operator Relationship Specialty Start Date End Date Rosalie Payne MD [address] [place] [address] (Fax) PCP - General Family Medicine 07/24/22 Rosalie Payne MD [address] [place] [address] (Fax) PCP - [employer] 06/16/20 Cut To Length Operator Relationship Specialty Start Date End Date Rosalie Payne MD [address] [place] [address] (Fax) PCP - General Family Medicine 07/24/22 Rosalie Payne MD [address] [place] [address] (Fax) PCP - [employer] 06/16/20 Cut To Length Operator Relationship Specialty Start Date End Date Roslaie Payne MD [address] [place] [address] (Fax) PCP - General Family Medicine 07/24/22 Rosalie Payne MD [address] [place] [address] (Fax) PCP - [employer] 06/16/20 Cut To Length Operator Relationship Specialty Start Date End Date Rosalie Payne MD [address] [place] [address] (Fax) PCP - General Family Medicine 07/24/22 Rosalie Payne MD [address] [place] [address] (Fax) PCP - [employer] 06/16/20 Cut To Length Operator Relationship Specialty Start Date End Date Rosalie Payne MD [address] [place] [address] (Fax) PCP - General Family Medicine 07/24/22 Rosalie Payne MD [address] [place] [address] (Fax) PCP - [facility] 06/16/20 Cut To Length Operator Relationship Specialty Start Date End Date Rosalie Payne MD [address] [facility] [address] [place] [address] (Fax) PCP - General [facility] Medicine 07/24/22 Rosalie Payne MD [address] [facility] [address] [place] [address] (Fax) PCP [facility] 06/16/20 Cut To Length Operator Relationship Specialty Start Date End Date Rosalie Payne MD [address] [facility] [address] [place] [address] (Fax) PCP [facility] 07/24/22 Rosalie Payne MD [address] [place] [address] (Fax) PCP [facility] 06/16/20 Cut To Length Operator Relationship Specialty Start Date End Date Rosalie Payne MD [address] [place] [address] [place] [address] (Fax) PCP [facility] 07/24/22 Rosalie Payne MD [address] [place] [address] (Fax) [facility] 06/16/20 Goals (unrecognized section and content) Goals [...] BE BASED ON THE PRIMARY CLINICAL RECORDS. [facility] provides no warranty or guarantee of the accuracy or completeness of information in this document.
[2024-12-26 09:24] VITALS: BP 114/58; PULSE 91
== END 2024-12-26 09:58 | disposition home or self-care (01) ==
LOC: US 08:51 → FBC 08:56
PROVIDERS: PCP Family Medicine; Visit Provider Obstetrics & Gynecology
DX: O99.283 Endocrine, nutritional and metabolic diseases complicating pregnancy, third trimester (principal); E06.3 Autoimmune thyroiditis; Z3A.32 32 weeks gestation of pregnancy
CPT/HCPCS: 36415; 76816; 76818; 84443

== ENCOUNTER 2024-12-30 14:53 | Outpatient (OUT) | payer BC, SELFPAY ==
--- OUTSIDE RECORDS SUMMARY | 2024-12-30 15:01 | XMS_ITS | CCD ---
Author Organization [facility] Care Team Providers Care Information Clerk Brokerage Name Role Phone BECERRIL, DAVID P Unavailable Unavailable BECERRIL, DAVID P Unavailable Unavailable BECERRIL, DAVID P Unavailable Unavailable BECERRIL, DAVID P Unavailable Unavailable BECERRIL, DAVID P Unavailable Unavailable BLANCA PABLO AM Unavailable Unavailable BLANCA PABLO AM Unavailable Unavailable SELF, REFERRED Unavailable Unavailable ROSALIE PAYNE Unavailable Unavailable Unavailable Primary Care Provider UnavailRosalie Muhammad MD Primary Care Provider [phone] DAVID DOMINGUEZ Attending Unavailable ARTIS YODER Attending [...] able Rosalie Payne MD Primary Care Provider [phone] Pocanaly, Myron Washburn Admitting Unavailable PocosMyron Referring Unavailable Pocos, Myron Washburn Attending Unavailable Pocos, Myron Washburn Referring Unavailable Pocos, Myron Washburn Attending Unavailable Myron Marroquin Admitting Unavailable MD Rosalie Payne Primary Care Provider [phone] DO Marcelle Patel Attending Provider Marcelle Patel Attending Unavailable Marcelle Patel Admitting Unavailable Rosalie Payne Primary Care Unavailable Rosalie Payne MD Primary Care Provider [phone] Rosalie Payne MD Primary Care Provider [phone] Rosalie Payne MD Unavailable LESA SINGH Attending Unavailable DOC THOMAS Attending Unavailable PRETTY CHAIDEZ Attending Unavailable DOC THOMAS Attending Unavailable PRETTY CHAIDEZ Attending Unavailable LUNA STEEN Attending Unavailable DOC THOMAS Attending Unavailable LUNA STEEN Attending Unavailable PEPE KIRBY Attending Unavailable MYRON MARROQUIN Referring Unavailable ROSALIE PAYNE Attending Unavailable MYRON MARROQUIN Attending Unavailable Allergies Allergy Classification Reported Allergen(s) Allergy Type Date of Onset Reaction(s) Facility Latex (1 source) Latex Substance Allergy 1 [facility] Macrolides (antibiotic) (1 source) Azithromycin Drug Allergy 1 [facility] (20 sources) Azithromycin; Translations: [azithromycin] Drug Allergy 1 [facility] (11 sources) Latex; Translations: [Latex] Propensity to adverse reactions to drug 1 [facility] (1 source) Azithromycin Drug Allergy 0 [facility] Repository (1 source) natural latex rubber Drug allergy (disorder) [facility] Repository (2 sources) Banana Extract; Translations: [Banana] Drug Allergy Vomiting (disorder) [facility] (20 sources) Midodrine; Translations: [midodrine] Drug Allergy 3 Numbness [facility] (20 sources) Latex Allergy to substance 1 [facility] (1 source) Azithromycin Drug Allergy 4 [facility] Repository (1 source) Latex Drug allergy (disorder) 4 [facility] Repository Medications Current Medications Medication Drug Class(es) Dates Sig (Normalized) Sig (Original) [id number] 200 actuat albuterol 0.09 mg/actuat metered dose [...] MG tablet Indications: Nausea and vomiting in ([facility]) Take 1 tablet (4 mg) by mouth every 6 (six) hours if needed for nausea or vomiting for up to 30 doses Take 1 tablet by mouth every 6 hours as needed for nausea. 30 tablet 12/23/2024 Active Start: 10-05-2024 End: 11-04-2024 take 1 tablet by mouth every six hours for nausea ondansetron ODT (Zofran-ODT) 4 MG disintegrating tablet Indications: Nausea and vomiting during ([facility]) Take 1 tablet (4 mg) by mouth every 6 (six) hours if needed for nausea or vomiting 30 tablet 3 10/05/2024 11/04/2024 Active Start: 08-26-2024 End: 09-30-2024 take 1 tablet by mouth every six hours for nausea ondansetron ODT (Zofran-ODT) 4 MG disintegrating tablet Indications: Nausea and vomiting during ([facility]) Take 1 tablet (4 mg) by [...] mg by mouth daily 0 Active Citalopram Milano bromide Active clotrimazole 10 mg oral lozenge (3 sources) Azole Antifungal Start: 05-11-2021 Clotrimazole 10 MG 1 wenceslao Mouth/Throat Three times a day for 7 day(s) Apr, Not-Taking/PRN medroxyPROGESTERone (4 sources) Progestin Depo-Provera Not-Taking/PRN Depo-Provera Act nicolle metoclopramide 10 mg oral tablet (12 sources) Dopamine-2 Receptor Antagonist Start: 07-16-2024 End: 09-30-2024 metoclopramide (Reglan) 10 MG tablet Indications: Nausea/vomiting in (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 Ordering Physician: Doc Thomas D.O. Date of Service: 12/26/24 Procedure(s): US OB BPP w non-stress Accession Number(s): [id number] cc: Doc Thomas D.O.; ROSALIE PAYNE [address] [id number] Patient Name: ALETA CASTRO MRN: [facility]:[id number] date: 2000 Sex: F Assigned Patient Location: US Current Patient Location: Accession/Order Number: [id number] Exam Date: 12/26/2024 09:00 Report Date: 12/26/2024 11:19 At the request of: DOC THOMAS DO Procedure: US OB BPP w non-stress Ultrasound biophysical profile INDICATION: Gabby's disease. COMPARISON: 10/06/2024 FINDINGS: LYNN 12.4 cm. 8/8 score biophysical profile. Fetus is cephalic position with heart rate 152 beats per minutes. US/US OB BPP w non-stress Impression: 8 out of 8 score biophysical profile. Impression dictated by: Deshaun Aguilar M.D. 12/26/2024 11:19 AM Dictation Location: [place] [address] Electronically authenticated by: [id number] Y Date: 12/26/2024 11:19 Dictated By: Deshaun Aguilar M.D. Signed By: 12/26/24 1122 DD/ 1119 TD/TT: Paint Roller Covermaker: Mercedes RadiologyRodogevon rai MD - 12/26/2024 [place] [address] Ultrasound Report Signed Patient: ALETA CASTRO MR#: [id number] : 2000 Acct:[id number] Age/Sex: 24 / F ADM Date: 12/26/24 Loc: US Attending Dr: Doc Thomas D.O. Ordering Physician: Doc Thomas D.O. Date of Service: 12/26/24 Procedure(s): US OB BPP w non-stress Accession Number(s): [id number] cc: Doc Thomas D.O.; ROSALIE PAYNE [address] [address] Patient Name: ALETA CASTRO MRN: [facility]:[id number] date: 2000 Sex: F Assigned Patient Location: US Current Patient Location: Accession/Order Number: [id number] Exam Date: 12/26/2024 09:00 Report Date: 12/26/2024 11:19 At the request of: DOC THOMAS DO Procedure: US OB BPP w non-stress Ultrasound biophysical profile INDICATION: Gabby's disease. COMPARISON: 10/06/2024 FINDINGS: LYNN 12.4 cm. 8/8 score biophysical profile. Fetus is cephalic position with heart rate 152 beats per minutes. US/US OB BPP w non-stress Impression: 8 out of 8 score biophysical profile. Impression dictated by: Deshaun Aguilar M.D. 12/26/2024 11:19 AM Dictation Location: [place] [address] Electronically authenticated by: [id number] Y Date: 12/26/2024 11:19 Dictated By: Deshaun Aguilar M.D. Signed By: 12/26/24 1122 DD/ 1119 TD/TT: Paint Roller Covermaker: [facility] Radiology Study observation (narrative) [facility] US OB BPP W NON-STRESS Ordered By: Radiologist Radiology on 12-26-2024 [facility] [employer] Work Phone: US OB GROWTHon 12-26-2024 [place] [address] Ultrasound Report Signed Patient: ALETA CASTRO MR#: [id number] : 2000 Acct:[id number] Age/Sex: 24 / F ADM Date: 12/26/24 Loc: US Attending Dr: Doc Thomas D.O. Ordering Physician: Doc Thomas D.O. Date of Service: 12/26/24 Procedure(s): US OB growth Accession Number(s): [id number] cc: Doc Thomas D.O.; ROSALIE PAYNE [place] [id number] Patient Name: ALETA CASTRO MRN: [facility]:[id number] date: 2000 Sex: F Assigned Patient Location: Current Patient Location: Accession/Order Number: [id number] Exam Date: 12/26/2024 09:00 Report Date: 12/26/2024 11:31 At the request of: DOC THOMAS DO Procedure: US OB growth Obstetric ultrasound for growth INDICATION: Gabby's disease FINDINGS: Single live anterior cephalic presentation longitudinal lie. Amniotic fluid index 12.4 cm between the gestational age fifth and 95th percentile. Largest pocket of fluid 5.1 cm. heart rate 1 52 bpm. motion documented by the research subject.. Estimated weight 2093 g 71.4%. Gestation age 32 weeks and 0 days. Biparietal diameter 7.93 m. Head circumference 30.7 cm. Otherwise the 10.6 cm. Abdominal circumference 28.9 cm. Femur length 6.4 cm. US/US OB growth IMPRESSION: Single live intrauterine of approximately 30 weeks Impression dictated by: Deshaun Aguilar M.D. 12/26/2024 11:31 AM Dictation Location: [place] [address] Electronically authenticated by: [id number] Y Date: 12/26/2024 11:31 Dictated By: Deshaun Aguilar M.D. Signed By: 12/26/24 1133 DD/ 1131 TD/TT: Paint Roller Covermaker: [facility] Radiology, Radiologi MD cecelia - 12/26/2024 [place] [address] Ultrasound Report Signed Patient: ALETA CASTRO MR#: [id number] : 2000 Acct:[id number] Age/Sex: 24 / F ADM Date: 12/26/24 Loc: US Attending Dr: Doc Thomas D.O. Ordering Physician: Doc Thomas D.O. Date of Service: 12/26/24 Procedure(s): US OB growth Accession Number(s): [id number] cc: Doc Thomas D.O.; ROSALIE PAYNE [place] [id number] Patient Name: ALETA CASTRO MRN: [id number]:[id number] date: 2000 Sex: F Assigned Patient Location: Current Patient Location: Accession/Order Number: [id number] Exam Date: 12/26/2024 09:00 Report Date: 12/26/2024 11:31 At the request of: DOC THOMAS DO Procedure: US OB growth Obstetric ultrasound for growth INDICATION: Gabby's disease FINDINGS: Single live anterior cephalic presentation longitudinal lie. Amniotic fluid index 12.4 cm between the gestational age fifth and 95th percentile. Largest pocket of fluid 5.1 cm. heart rate 1 52 bpm. motion documented by the research subject.. Estimated weight 2093 g 71.4%. Gestation age 32 weeks and 0 days. Biparietal diameter 7.93 m. Head circumference 30.7 cm. Otherwise the 10.6 cm. Abdominal circumference 28.9 cm. Femur length 6.4 cm. US/US OB growth IMPRESSION: Single live intrauterine of approximately 30 weeks Impression dictated by: Deshaun Aguilar M.D. 12/26/2024 11:31 AM Dictation Location: [place] [address] Electronically authenticated by: [id number] Y Date: 12/26/2024 11:31 Dictated By: Deshaun Aguilar M.D. Signed By: 12/26/24 1133 DD/ 1131 TD/TT: Paint Roller Covermaker: [facility] Radiology Study observation (narrative) [facility] OB GROWTHOrdered By: Paola ologist Radiology on 12-26-2024 [facility] Work Phone: Urinalysis macro (dipstick) panel (U)on 12-23-2024 Bilirubin, UA Negative Negative - 4(70) +++ mg/dL [facility] Blood, UA Negative Negative - 50 Randall/mcL [facility] Clarity, UA Clear [facility] Color, UA Yellow [facility] Glucose, UA 1+ Negative - 2000(110) ++++ mg/dL [facility] Interpretation and review of laboratory results Abnormal [facility] Ketones, UA Negative Negative - 160(16) ++++ mg/dL [facility] Leukocytes, UA Trace Negative - 500+++ Rick/mcL [facility] Nitrite, UA Negative Negative - Positive [facility] pH, UA 6 5 - 9 [facility] Protein, UA Negative Negative - 1999(20) ++++ mg/dL [facility] Spec Grav, UA 1.015 1 - 1.03 [facility] Urobilinogen, UA 2.0 0.2 - 12 mg/dL [facility] Urinalysis macro (dipstick) panel (U)on 12-09-2024 Bilirubin, UA Negative Negative - 4(70) +++ mg/dL [facility] Blood, UA Negative Negative - 50 Randall/mcL [facility] Clarity, UA Clear [facility] Color, UA Yellow [facility] Glucose, UA Negative Negative - 1999(110) ++++ mg/dL [facility] Interpretation and review of laboratory results Abnormal [facility] Ketones, UA Negative Negative - 160(16) ++++ mg/dL [facility] Leukocytes, UA Positive Negative - 500+++ Rick/mcL [facility] Comment on above: 1+ Nitrite, UA Negative Negative - Positive [facility] pH, UA 7 5 - 9 [facility] Protein, UA Negative Negative - 1999(20) ++++ mg/dL [facility] Spec Grav, UA 1.01 1 - 1.03 [facility] Urobilinogen, UA 0.2 0.2 - 12 mg/dL [facility] Office Visiton 11-27-2024 Follow-up visit [id number] Yung Castro er N 2000 F Date Provider Department Center 11/27/2024 [id number] SINGH [facility] Family History Family Status - Relation Status Age at Mother Alive Father Alive Level of Service:09571 AL OFFICE/OUTPATIENT NEW LOW MDM 30 MINUTES Reason for Visit and Comments: New Patient [632] - New patient here today to establish care with cardiology Syncope [506] POTS [Other] Positive tilt table [Other] 6 months [Other] Normal [facility] Urinalysis macro (dipstick) panel (U)on 11-25-2024 Bilirubin, UA Positive Negative - 4(70) +++ mg/dL [facility] Comment on above: 1+ Blood, UA Negative Negative - 50 Randall/mcL [facility] Clarity, UA Clear [facility] Color, UA Yellow [facility] Glucose, UA Positive Negative - 1999(110) ++++ mg/dL [facility] Comment on above: Trace Interpretation and review of laboratory results Abnormal [facility] Ketones, UA Negative Negative - 160(16) ++++ mg/dL [facility] Leukocytes, UA Negative Negative - 500+++ Rick/mcL [facility] Nitrite, UA Negative Negative - Positive [facility] pH, UA 6 5 - 9 [facility] Protein, UA Positive Negative - 1999(20) ++++ mg/dL [facility] Comment on above: Trace Spec Grav, UA 1.03 1 - 1.03 [facility] Urobilinogen, UA 0.2 0.2 - 12 mg/dL [facility] CA ECHO DOPPLER COMPLETEon 0 11-24-2024 [place] [address] Cardiology Report Signed Patient: ALETA CASTRO MR#: [id number] : 2000 Acct:[id number] Age/Sex: 24 / F ADM Date: 11/12/24 Loc: CARD Attending Dr: Luna Steen Ordering Physician: Luna Steen Date of Service: 11/12/24 Procedure(s): CA echo doppler complete Accession Number(s): [id number] cc: Luna Steen; ROSALIE PAYNE Patient Name: ALETA CASTRO MR#: [id number] : 2000 Exam Date: 11/12/2024 Ordering Doctor: LUNA STEEN [facility] ECHOCARDIOGRAM REPORT PROCEDURE: CA ECHO DOPPLER COMPLETE [...] 11/24/2024 at 16:39 (more content not included)... [facility] Radiology, Radiologi MD cecelia - 11/24/2024 [place] [address] Cardiology Report Signed Patient: ALETA CASTRO MR#: [id number] : 2000 Acct:[id number] Age/Sex: 24 / F ADM Date: 11/12/24 Loc: CARD Attending Dr: Luna Steen Ordering Physician: Luna Steen Date of Service: 11/12/24 Procedure(s): CA echo doppler complete Accession Number(s): [id number] cc: Luna Steen; ROSALIE PAYNE Patient Name: ALETA CASTRO MR#: [id number] : 2000 Exam Date: 11/12/2024 Ordering Doctor: LUNA STEEN [facility] ECHOCARDIOGRAM REPORT PROCEDURE: CA ECHO DOPPLER COMPLETE [...] Signed By: 11/24/24 1640 DD/ 1639 TD/TT: Paint Roller Covermaker: [facility] Radiology Study observation (narrative) [facility] CA ECHO DOPPLER COMPLETEOrde red By: Radiologist Radiology on 11-24-2024 [facility] Work Phone: ECG 12-LEADon 11-13-2024 [place] [address] Electrocardiograph Report Signed Patient: ALETA CASTRO MR#: [id number] : 2000 Acct:[id number] Age/Sex: 24 / F ADM Date: 11/12/24 Loc: CARD Attending Dr: Luna Steen Ordering Physician: Luna Steen Date of Service: 11/12/24 Procedure(s): ECG 12 lead Accession Number(s): [id number] cc: [facility] Test Date: 2024-11-12 Pat Name: ALETA CASTRO Department: Room: - Gender: Female Criminal Attorney: : 2000 Requested By: LUNA STEEN Order Number: [id number] Reading : Lesa Singh Measurements Intervals [place] Rate: 79 P: 42 AL: 158 QRS: 81 QRSD: 90 T: 41 QT: 353 QTc: 405 Interpretive Statements SINUS RHYTHM Normal EKG No previous ECG available for comparison Electronically Signed On 11-13-2024 13:34:21 EDT by Lesa Singh Dictated By: Lesa Singh M.D. Signed By: 11/13/24 1334 11/13/24 1334 DD/ 1206 TD/TT: Paint Roller Covermaker: [facility] Radiology, Radiologevon rai MD - 11/13/2024 [place] [address] Electrocardiograph Report Signed Patient: ALETA CASTRO MR#: [id number] : 2000 Acct:[id number] Age/Sex: 24 / F ADM Date: 11/12/24 Loc: CARD Attending Dr: Luna Steen Ordering Physician: Luna Steen Date of Service: 11/12/24 Procedure(s): ECG 12 lead Accession Number(s): [id number] cc: [facility] Test Date: 2024-11-12 Pat Name: ALETA CASTRO Department: Room: - Gender: Female Criminal Attorney: : 2000 Requested By: LUNA STEEN Order Number: [id number] Reading MD: Lesa Singh Measurements Intervals [place] Rate: 79 P: 42 AL: 158 QRS: 81 QRSD: 90 T: 41 QT: 353 QTc: 405 Interpretive Statements SINUS RHYTHM Normal EKG No previous ECG available for comparison Electronically Signed On 11-13-2024 13:34:21 EDT by Lesa Singh Dictated By: Lesa Singh M.D. Signed By: 11/13/24 1334 11/13/24 1334 DD/ 1206 TD/TT: Paint Roller Covermaker: [facility] ECG 12-LEADOrdered By: Radio logist Radiology on 11-13-2024 [facility] Work Phone: ECG 12-LEADon 11-12-2024 Radiology Study observation (narrative) [facility] ALL CBC WITH AUTO DIFFon BASOPHILS ABSOLUTE AUTO 0 [facility] Basophils/100 WBC (Bld) 0.2 % 0.2 - 2.0 % [facility] Eosinophils/100 WBC (Bld) 0.5 % Low 0.9 - 7.0 % [facility] Erythrocyte distribution width (RBC) [Ratio] 12.7 % 11.0 - 15.0 % [facility] Hematocrit (Bld) [Volume fraction] 31.2 % Low 36.0 - 48.0 % [facility] Hemoglobin (Bld) [Mass/Vol] 10.8 g/dL Low 12.0 - 16.0 g/dL [facility] IMMATURE GRANULOCYTES ABS AUTO 0.01 [facility] Immature granulocytes/100 WBC (Bld) 0.2 % 0.0 - 0.5 % [facility] Interpretation and review of laboratory results Abnormal [facility] LYMPHOCYTES ABSOLUTE AUTO 1 Low [facility] Lymphocytes/100 WBC (Bld) 15 % Low 20.5 - 60.0 % [facility] MCH (RBC) [Entitic mass] 32.3 pg 26.7 - 34.0 pg [facility] MCHC (RBC) [Mass/Vol] 34.6 g/dL 29.9 - 35.2 g/dL [facility] MCV (RBC) [Entitic vol] 93.4 fL 81.0 - 99.0 fL [facility] MONOCYTES ABSOLUTE AUTO 0.5 [facility] Monocytes/100 WBC (Bld) 7.7 % 1.7 - 12.0 % [facility] NEUTROPHILS ABSOLUTE AUTO 5 [facility] Neutrophils/100 WBC (Bld) 76.4 % High 43.0 - 75.0 % [facility] Platelet mean volume (Bld) [Entitic vol] 9.7 fL 9.5 - 13.5 fL [facility] TBH EO # 0 [facility]H PLT 187 [facility] TB RBC 3.34 Low [facility] TBH WBC 6.6 [facility] IGP,APTIMA HPV,AGE GDLNon AGE GDLN ACOG TESTING Note . [facility] Comment on above: TESTS RESULT FLAG UN ITS REF RANGE LAB Clinician Provided Cytology Information Source.............Endocervix No. of containers..01 ThinPrep Vial Age Amaris GUERRERO Yaa... FLAG LEGEND: L-Low Normal,H-High Normal,LL-Alert Low,HH-Alert High <-Panic Low,>-Panic High,A-Abnormal,AA-Critical Abnormal Performed at: 01 =[facility] [address] [place] [address] Ludy Hector MD, IGP, RFX APTIMA HPV ASCU Note . [facility] Comment on above: TESTS RESULT FLAG [facility] REF RANGE LAB DIAGNOSIS: 02 NEGATIVE FOR INTRAEPITHELIAL LESION OR MALIGNANCY. THIS SPECIMEN WAS RESCREENED PART OF OUR CURING OVEN TENDER PROGRAM. Specimen adequacy: 02 Satisfactory for evaluation. No endocervical component is identified. Performed by: 02 Brionna Mello, Mobile Web Application Developer ([facility]) QC reviewed by: 02 Polina Simons, Mobile Web Application Developer . 02 Note: Note 02 The Pap [...] <-Panic Low,>-Panic High,A-Abnormal,AA-Critical Abnormal Performed at: [address] [address] Ludy Hector MD, Performed at: = - [facility] [id number] Induction Heating Equipment Setter: Ludy Hector MD, Phone: [phone] Performed at: [address] [id number] Induction Heating Equipment Setter: Ludy Hector MD, Phone: [phone] BRUSH-SPATULA ENDOCERVIX [facility] RECURRENT VAGINITIS (HTRX)on 10-30-2024 ATOPOBIUM VAGINAE 0 [facility] ATOPOBIUM VAGINAE Not detected [facility] BVAB 2,3 (BACTERIAL VAGINOSIS ASSOCIATED BACTERIA 2, 3); MOBILUNCUS SPP 0 [facility] BVAB 2,3 (BACTERIAL VAGINOSIS ASSOCIATED BACTERIA 2, 3); MOBILUNCUS SPP Not detected [facility] RICKEY ALBICANS, PARAPSILOSIS, TROPICALIS 0 [facility] RICKEY ALBICANS, PARAPSILOSIS, TROPICALIS Not detected [facility] RICKEY GLABRATA 0 [facility] RICKEY GLABRATA Not detected [facility] RICKEY KRUSEI 0 [facility] RICKEY KRUSEI Not detected [facility] CHLAMYDIA TRACHOMATIS 0 [facility] CHLAMYDIA TRACHOMATIS Not detected [facility] GARDNERELLA VAGINALIS 0 [facility] GARDNERELLA VAGINALIS Not detected [facility] MEGASPHAERA (TYPES 1, 2) 0 [facility] MEGASPHAERA (TYPES 1, 2) Not detected [facility] MYCOPLASMA GENITALIUM 0 [facility] MYCOPLASMA GENITALIUM Not detected [facility] NEISSERIA GONORRHOEAE 0 [facility] NEISSERIA GONORRHOEAE Not detected [facility] TRICHOMONAS VAGINALIS 0 [facility] TRICHOMONAS VAGINALIS Not detected [facility] Urinalysis macro (dipstick) panel (U)on 10-28-2024 Bilirubin, UA Positive Negative - 4(70) +++ mg/dL [facility] Blood, UA Negative Negative - 50 Randall/mcL [facility] Clarity, UA Clear [facility] Color, UA Yellow [facility] Glucose, UA Positive Negative - 2000(110) ++++ mg/dL [facility] Interpretation and review of laboratory results Abnormal [facility] Ketones, UA Positive Negative - 160(16) ++++ mg/dL [facility] Leukocytes, UA Negative Negative - 500+++ Rick/mcL [facility] Nitrite, UA Negative Negative - Positive [facility] pH, UA 6 5 - 9 [facility] Protein, UA Positive Negative - 2000(20) ++++ mg/dL [facility] Spec Grav, UA 1.03 1 - 1.03 [facility] Urobilinogen, UA 0.2 0.2 - 12 mg/dL [facility] US OB CERVICAL LENGTHon 09-16 [place] [address] Ultrasound Report Signed Patient: ALETA CASTRO MR#: [id number] : 2000 Acct:[id number] Age/Sex: 24 / F ADM Date: 10/06/24 Loc: US Attending Dr: Doc Thomas D.O. Ordering Physician: Doc Thomas D.O. Date of Service: 10/06/24 Procedure(s): US OB cervical length Accession Number(s): [id number] cc: oDc Thomas D.O.; ROSALIE PAYNE [address] [address] Patient Name: ALETA CASTRO MRN: [facility]:[id number] date: 2000 Sex: F Assigned Patient Location: US Current Patient Location: US Accession/Order Number: [id number] Exam Date: 10/06/2024 14:25 Report Date: 10/06/2024 [...] Jr., D.O. 10/06/2024 2:26 PM Dictation Location: [place] [address] Electronically authenticated by: [id number] Y Date: 10/06/2024 14:26 Dictated By: Jermaine Nguyễn M.D. Signed By: 10/06/24 1428 DD/ 142 TD/TT: Paint Roller Covermaker: [facility] RadiologyRodogevon rai MD - 10/06/2024 [place] [address] Ultrasound Report Signed Patient: ALETA CASTRO MR#: [id number] : 2000 Acct:[id number] Age/Sex: 24 / F ADM Date: 10/06/24 Loc: US Attending Dr: Doc Thomas D.O. Ordering Physician: Doc Thomas D.O. Date of Service: 10/06/24 Procedure(s): US OB cervical length Accession Number(s): [id number] cc: Doc Thomas D.O.; ROSALIE PAYNE [address] [address] Patient Name: ALETA CASTRO MRN: [facility]:[id number] date: 2000 Sex: F Assigned Patient Location: Current Patient Location: Accession/Order Number: [id number] Exam Date: 10/06/2024 14:25 Report Date: 10/06/2024 [...] Jr., D.O. 10/06/2024 2:26 PM Dictation Location: [place] [address] Electronically authenticated by: [id number] Y Date: 10/06/2024 14:26 Dictated By: Jermaine Nguyễn M.D. Signed By: 10/06/24 1428 DD/ 1426 TD/TT: Paint Roller Covermaker: [facility] Rad[facility] Study observation (narrative) [facility] US OB CERVICAL LENGTHOrdered By: Radiologist Radiology on 10-06-2024 [facility] [employer] Work Phone: US OB 14+ WEEKS ANATOMY [...] UA Negative Negative - 4(70) +++ mg/dL [facility] Blood, UA Negative Negative - 50 Randall/mcL [facility] Clarity, UA Clear [facility] Color, UA Yellow [facility] Glucose, UA Negative Negative - 2000(110) ++++ mg/dL [facility] Interpretation and review of laboratory results Normal [facility] Ketones, UA Negative Negative - 160(16) ++++ mg/dL [facility] Leukocytes, UA Negative Negative - 500+++ Rick/mcL [facility] Nitrite, UA Negative Negative - Positive [facility] pH, UA 6 5 - 9 [facility] Protein, UA Negative Negative - 2000(20) ++++ mg/dL [facility] Spec Grav, UA 1.005 1 - 1.03 [facility] Urobilinogen, UA 1.0 0.2 - 12 mg/dL [facility] ALL THYROID STIM HORMONEon 0 09-28-2024 TSH Qn 0.836 m[IU]/L [facility] Urinalysis macro (dipstick) panel (U)on 09-02-2024 Bilirubin, UA Negative Negative - 4(70) +++ mg/dL [facility] Blood, UA Negative Negative - 50 Randall/mcL [facility] Clarity, UA Clear [facility] Color, UA Yellow [facility] Glucose, UA Negative Negative - 2000(110) ++++ mg/dL [facility] Interpretation and review of laboratory results Normal [facility] Ketones, UA Negative Negative - 160(16) ++++ mg/dL [facility] Leukocytes, UA Negative Negative - 500+++ Rick/mcL [facility] Nitrite, UA Negative Negative - Positive [facility] pH, UA 6 5 - 9 [facility] Protein, UA Negative Negative - 1999(20) ++++ mg/dL [facility] Spec Grav, UA 1.025 1 - 1.03 [facility] Urobilinogen, UA 0.2 0.2 - 12 mg/dL [facility] ALL THYROID STIM HORMONEon 0 08-31-2024 TSH Qn 1.413 m[IU]/L [facility] (dipstick) panel (U)on 08-05-2024 Bilirubin, UA Negative Negative - 4(70) +++ mg/dL [facility] Blood, UA Negative Negative - 50 Randall/mcL [facility] Clarity, UA Clear [facility] Color, UA Yellow [facility] Glucose, UA Negative Negative - 1999(110) ++++ mg/dL [facility] Interpretation and review of laboratory results Abnormal [facility] Ketones, UA Positive Negative - 160(16) ++++ mg/dL [facility] Comment on above: 40 Leukocytes, UA Trace Negative - 500+++ Rick/mcL [facility] Nitrite, UA Negative Negative - Positive [facility] pH, UA 6.5 5 - 9 [facility] Protein, UA Negative Negative - 1999(20) ++++ mg/dL [facility] Spec Grav, UA 1.025 1 - 1.03 [facility] Urobilinogen, UA 1.0 0.2 - 12 mg/dL [facility] BOX TESTon 07-18-2024 BOX TEST SENT OUT [facility] [address] [facility] [address] 07/18/24 [facility] DRUG SCREEN RAPID (URINE )on 07-18-2024 AMPHETAMINE SCREEN URINE Negative NEGATIVE [facility] BARBITURATES SCREEN URINE Negative NEGATIVE [facility] BENZODIAZEPINES SCREEN URINE Negative NEGATIVE [facility] BUPRENORPHINE SCREEN URINE Negative NEGATIVE [facility] Comment on above: DRUG CLASS TEST [...] 300 ng/mL CANNABINOID SCREEN URINE Negative [facility]OC[facility]INE [facility] METHADONE SCREEN URINE Negative NEGATIVE [facility] METHAMPHETAMINES SCREEN URINE Negative NEGATIVE [facility] OPIATE SCREEN URINE Negative NEGATIVE [facility] OXYCODONE SCREEN URINE Negative NEGATIVE [facility] PHENCYCLIDINE SCREEN URINE Negative NEGATIVE [facility] TRICYCLIC ANTIDEPRESSANT URINE Negative NEGATIVE [facility] HCG ( test) Ql (U)o n 07-16-2024 Interpretation and review of laboratory results Abnormal [facility] Preg Test, Ur Positive Negative [facility] US OB TRANSVAGINALon 025 US OB [...] II, MD, PHD at 19-Jul-2024 08:55:15 PM [facility] [employer] Normal Not Available Comment on above: Order Comment: US OB TRANSVAGINAL No LMP recorded. Urinalysis macro (dipstick) panel (U)on 07-16-2024 Bilirubin, UA Negative Negative - 4(70) +++ mg/dL [facility] Blood, UA Negative Negative - 50 Randall/mcL [facility] Clarity, UA Clear [facility] Color, UA Yellow [facility] Glucose, UA Negative Negative - 1999(110) ++++ mg/dL [facility] Interpretation and review of laboratory results Normal [facility] Ketones, UA Negative Negative - 160(16) ++++ mg/dL [facility] Leukocytes, UA Negative Negative - 500+++ Rick/mcL [facility] Nitrite, UA Negative Negative - Positive [facility] pH, UA 6.5 5 - 9 [facility] Protein, UA Negative Negative - 1999(20) ++++ mg/dL [facility] Spec Grav, UA 1.02 1 - 1.03 [facility] Urobilinogen, UA 1.0 0.2 - 12 mg/dL [facility] CBC W Auto Differential pane l (Bld)on 02-21-2024 Band form neutrophils (Bld) [#/Vol] CANCELED [facility] Comment on above: Result canceled by [facility] ancillary. Band form neutrophils/100 WBC (Bld) CANCELED % [facility] Comment on above: Result canceled by t ancillary. Basophils (Bld) [#/Vol] 19 10*3/uL [facility] Basophils/100 WBC (Bld) 0.4 % [facility] Blasts (Bld) [#/Vol] CANCELED 0 cells/uL [facility] Comment on above: Result canceled by t ancillary. Blasts/100 WBC (Bld) CANCELED % [facility] Comment on above: Result canceled by [facility] ancillary. Eosinophils (Bld) [#/Vol] 91 10*3/uL [facility] Eosinophils/100 WBC (Bld) 1.9 % [facility] Erythrocyte distribution width (RBC) [Ratio] 12.5 % 11.0 - 15.0 % [facility] Hematocrit (Bld) [Volume fraction] 38.9 % 35.0 - 45.0 % [facility] Hemoglobin (Bld) [Mass/Vol] 12.8 g/dL 11.7 - 15.5 g/dL [facility] Lymphocytes (Bld) [#/Vol] 1282 10*3/uL [facility] Lymphocytes/100 WBC (Bld) 26.7 % [facility] MCH (RBC) [Entitic mass] 30.6 pg 27.0 - 33.0 pg [facility] MCHC (RBC) [Mass/Vol] 32.9 g/dL 32.0 - 36.0 g/dL [facility] Comment on above: For adults, a slight decrease in the calculated MCHC value (in the range of 30 to 32 g/dL) is most likely not clinically significant; however, it should be interpreted with caution in correlation with other red cell parameters and the patient's clinical condition. MCV (RBC) [Entitic vol] 93.1 fL 80.0 - 100.0 fL [facility] Metamyelocytes (Bld) [#/Vol] CANCELED 0 cells/uL [facility] Comment on above: Result canceled by t he ancillary. Metamyelocytes/100 WBC (Bld) CANCELED % [facility] Comment on above: Result canceled by t he ancillary. Monocytes (Bld) [#/Vol] 422 10*3/uL [facility] Monocytes/100 WBC (Bld) 8.8 % [facility] Myelocytes (Bld) [#/Vol] CANCELED 0 cells/uL [facility] Comment on above: Result canceled by t he ancillary. Myelocytes/100 WBC (Bld) CANCELED % [facility] Comment on above: Result canceled by t he ancillary. Neutrophils (Bld) [#/Vol] 2986 10*3/uL [facility] Neutrophils/100 WBC (Bld) 62.2 % [facility] Nucleated RBC (Bld) [#/Vol] CANCELED 0 cells/uL [facility] Comment on above: Result canceled by t he ancillary. Nucleated RBC/100 WBC (Bld) [Ratio] CANCELED 0 /100 WBC [facility] Comment on above: Result canceled by t he ancillary. Platelet mean volume (Bld) [Entitic vol] 9.3 fL 7.5 - 12.5 fL [facility] Platelets (Bld) [#/Vol] 291 10*3/uL [facility] Promyelocytes (Bld) [#/Vol] CANCELED 0 cells/uL [facility] Comment on above: Result canceled by t ancillary. Promyelocytes/100 WBC (Bld) CANCELED % [facility] Comment on above: Result canceled by t ancillary. RBC (Bld) [#/Vol] 4.18 10*6/uL [facility] Service comment (Unsp spec) [Interp] CANCELED [facility] Comment on above: Result canceled by t ancillary. Variant lymphocytes/100 WBC (Bld) CANCELED 0 - 10 % [facility] Comment on above: Result canceled by t ancillary. WBC (Bld) [#/Vol] 4.8 10*3/uL [facility] Iron and Iron binding capaci ty panelon 02-21-2024 Iron [Mass/Vol] 101 ug/dL [facility] Iron binding capacity [Mass/Vol] 340 [facility] Iron saturation [Mass fraction] 30 [facility] Laboratory - Chemistry and C hemistry - challengeon 02-21-2024 Albumin [Mass/Vol] 4.8 g/dL 3.6 - 5.1 g/dL [facility] Albumin/Globulin [Mass ratio] 1.8 {ratio} [facility] ALP [Catalytic activity/Vol] 65 U/L 31 - 125 U/L [facility] ALT [Catalytic activity/Vol] 16 U/L 6 - 29 U/L [facility] AST [Catalytic activity/Vol] 14 U/L 10 - 30 U/L [facility] Bilirubin [Mass/Vol] 0.6 mg/dL 0.2 - 1 .2 mg/dL [facility] Calcium [Mass/Vol] 9.3 mg/dL 8.6 - 10. 2 mg/dL [facility] Chloride [Moles/Vol] 107 mmol/L 98 - 11 0 mmol/L [facility] CO2 [Moles/Vol] 24 mmol/L 20 - 32 mmol/L [facility] Cortisol [Mass/Vol] 14.3 ug/dL mcg/dL [facility] Comment on above: Reference Range: For 8 a.m.(7-9 a.m.) Specimen: 4.0-22.0 Reference Range: For 4 p.m.(3-5 p.m.) Specimen: 3.0-17.0 * Please interpret above results accordingly * Creatinine [Mass/Vol] 0.71 mg/dL 0.50 - 0.96 mg/dL [facility] GFR/1.73 sq M.predicted among non-blacks MDRD (S/P/Bld) [Vol rate/Area] 122 mL/min/{1.73_m2} > OR = 60 mL/min/1.73m 2 [facility] Globulin (S) [Mass/Vol] 2.6 g/dL [facility] Glucose [Mass/Vol] 95 mg/dL 65 - 99 mg/dL [facility] Comment on above: Fasting reference interval Potassium [Moles/Vol] 4.2 mmol/L 3.5 - 5.3 mmol/L [facility] Protein [Mass/Vol] 7.4 g/dL 6.1 - 8.1 g/dL [facility] Sodium [Moles/Vol] 139 mmol/L 135 - 146 mmol/L [facility] Urea nitrogen [Mass/Vol] 16 mg/dL 7 - 25 mg/dL [facility] Urea nitrogen/Creatinine [Mass ratio] SEE NOTE: [facility] Comment on above: Not Reported: BUN an d Creatinine are within reference range. Laboratory - Serology - non- microon 02-21-2024 Thyroglobulin Ab Qn 153 [IU]/mL High < or = 1 IU/mL [facility] TPO Ab Qn 27 [IU]/mL High NINF [facility] No Panel Informationon 02-20 Interpretation and review of laboratory results Abnormal [facility] Performing Organizat ion Information Site ID: QTW Name: [facility] Address: [address] [place] [phone] Director: Urvashi Gtz [facility] Performing Organizat ion Information Site ID: QPT Name: [facility] Address: [address] [place] [address], [address] [place] [phone] Director: Yonis Beck MD [facility] T3, FREEon 02-05-2024 Free T3 [Mass/Vol] 3.6 pg/mL Normal 2.3-4.2 [facility] Comment on above: Performed By: #### 8 99, [id number], 866 #### [facility] [address], [address] [place] [address] Adult Health Clinical Nurse Specialist: Yonis Beck MD T4, FREEon 02-05-2024 Free T4 [Mass/Vol] 1.1 ng/dL Normal 0.8-1.8 [facility] Comment on above: Order Comment: FASTI NG:NO FASTING: NO Performed By: #### 8 99, [id number], 866 #### [facility] [address], [address] [place] [address] Adult Health Clinical Nurse Specialist: Yonis Beck MD TSHon 02-05-2024 TSH Qn 1.98 m[IU]/L Normal [facility] Comment on above: Result Comment: Refe rence Range > or = 20 Years 0.40-4.50 Ranges First trimester 0.26-2.66 Second trimester 0.55-2.73 Third trimester 0.43-2.91 Performed By: #### 8 99, 97796, 866 #### [facility] [address], [address] [place] [address] Adult Health Clinical Nurse Specialist: Yonis Beck MD HCG ( test) IAbernice quintanilla Ql (U)Ordered By: Marcelle Patel on 09-02-2023 HCG ( test) Ql (U) Negative [facility] HCG,Urineon 09-02-2023 Beta HCG ( test) Ql (U) Negative Normal [facility] Comment on above: Result Comment: PERF ORMED BY: [place] [address] PATHOLOGIST BOND MANAGER RAYMOND SUERO M.D. Performed By: #### U HCG #### [address] Chaitanya 09-02-2023 L Specimen: [id number] Received: 09/03/23 Status: FRANKLYN Yassine Num: [id number] Spec Type: Surgical Subm Dr: Marcelle Patel, DO Tissues: A Small Intestine - Biopsy/Polyp (SMALL BOWEL BX) B GASTRIC FOR HP (GASTRIC HP) C Esophagus Biopsy (DISTAL ESOPHAGUS) D Esophagus Biopsy (PROXIMAL ESOPHAGUS) E Colon Biopsy (RANDOM RT COLON) F Colon Biopsy (RANDOM LT COLON) Procedures: HE/12, Gross/Micro L4/6, H PYLORI, IHC First AB Age/ Patient Sex Location Account Attending Physician Aleta Castro / [id number] Marcelle Patel DO SPEC NUM: [id number] RECD: 09/03/23 STATUS: FRANKLYN GONZALES NUM: [id number] MIRIAM: 09/02/23- SUBM DR: Marcelle Patel DO ENTERED: 09/03/23 [facility] DR: SPEC TYPE: Surgical DEPT: S ORDERED: [...] mild squamous acanthosis and occasionally associated Specimen: [id number] Received: 09/03/23 Status: JONYJabier Gonzales Num: [id number] Spec Type: Surgical Subm Dr: Marcelle Patel DO Tissues: A Small Intestine - Biopsy/Polyp (SMALL BOWEL BX) B GASTRIC FOR HP (GASTRIC HP) C Esophagus Biopsy (DISTAL ESOPHAGUS) D Esophagus Biopsy (PROXIMAL ESOPHAGUS) E Colon Biopsy (RANDOM RT COLON) F Colon Biopsy (RANDOM LT COLON) Procedures: HE/, Gross/Micro L4/6, H PYLORI, IHC First AB Patient: MatthewAleta N [id number] (Continued) Specimen: [id number] Received: 09/03/23 (Continued) Pathological Diagnosis (Continued) Signed (signature on file) Heather Villegas MD 09/05/23 1417 Specimen: [id number] Received: 09/03/23 Status: FRANKLYN Gonzales Num: [id number] Spec Type: Surgical Subm Dr: Marcelle Patel DO Tissues: A Small Intestine - Biopsy/Polyp (SMALL BOWEL BX) B GASTRIC FOR HP (GASTRIC HP) C Esophagus Biopsy (DISTAL ESOPHAGUS) D Esophagus Biopsy (PROXIMAL ESOPHAGUS) E Colon Biopsy (RANDOM RT COLON) F Colon Biopsy (RANDOM LT COLON) Procedures: , Gross/Micro L4/6, H PYLORI, IHC First AB Patient: Aleta Castro N [id number] (Continued) Specimen: [id number] Received: 09/03/23 (Continued) Pathological Diagnosis (Continued) lymphocytic [...] submitted (more content not included)... Normal [facility] Insurance Correspondence Off 05-08-2023 Insurance Correspondence Office [id number]#1.00TI FF [facility] IntraOperative Documentson 0 04-29-2023 IntraOperative Documents [id number]#1.00TIF F [facility] Postoperative Documentson Postoperative Documents [id number]#1.00TIF F [facility] Main OR Intraoperative Recor don 04-25-2023 Main OR Intraoperative Record IntraOp Document Type FT Summary Primary Physician: Myron Marroquin DO Finalized Date/Time: 04/25/23 09:04:33 Pt. Name: ALETA CASRTO/Sex: 2000 Female Med Rec #: [id number] Physician: Myron Marroquin DO Financial #: [id number] Pt. Type: A Room/Bed: [place] [address] Admit/Disch: 04/23/23 06:25:15 - 04/23/23 14:50:00 Institution: [...] assist with the block. Patient's heartrate 89, ry81-187% on room air. patient tolerated block well. Patient transported back to A[facility] bay 4 via cart. Patient placed on continous monitor, cart wheels locked and call light in reach. RICHAR Conrad 04/25/23 Chart opened to review and send charges LRoth CSFA Case Attendance FT Entry 1 Entry 2 Entry [address] DO, David A Krupp RNLyle Role Performed Anesthesiologist Surgeon - Primary Gang Miner - Primary Apartment Leasing Agent Time In 04/23/23 08:50:00 04/23/23 09:15:00 04/23/23 08:50:00 Time Out 04/23/23 10:59:00 04/23/23 10:44:00 04/23/23 10:59:00 Procedure KNEE ARTHROSCOPY W/ ACL KNEE ARTHROSCOPY W/ ACL KNEE ARTHROSCOPY W/ ACL REPAIR(Left) REPAIR(Left) REPAIR(Left) Comments , anesthesia cloth laminating supervisor Last Modified By: Souleymane RN, Lyle Comer RN, Lyle Comer RN, Lyle Haas 04/23/23 10:59:32 04/23/23 10:59:32 04/23/23 10:59:32 Entry 4 Entry 5 Entry 6 Case Attendee Regulo Rodgers Laura C Wilhelm CST, Benjamin Role Performed Staff - Other Scrub - Primary FINANCIAL MANAGEMENT/SA Time In 04/23/23 08:50:00 04/23/23 08:50:00 04/23/23 [...] Time Out Diony Way, Given Participants Myron Marroquin DO, Krupp RN, Ana Maria Bennett Kendall R, Miller, [...] Center Consent for Anesthesiaon Consent for Anesthesia [id number]#1.00T IFF Normal [facility] Discharge Instructionson Discharge Instructions [id number]#1.00T IFF Normal [facility] IntraOperative Documentson 0 04-24-2023 IntraOperative Documents [id number]#1.00T IFF Normal [facility] Operative Reporton Operative Report SURGERY DATE: 2023 REFRACTORY BRICKLAYER: Garry Camacho CST PREOPERATIVE DIAGNOSIS: Left knee anterior cruciate ligament tear POSTOPERATIVE DIAGNOSIS: Left knee anterior cruciate ligament tear OPERATION: Left knee diagnostic operative arthroscopy with autograft ewtz-kopznf-hcrc anterior cruciate ligament reconstruction with InternalBrace augmentation ANESTHESIA: General as well as regional block ANESTHESIOLOGIST: KARTHIKEYAN Peacock ESTIMATED BLOOD LOSS: 10 mL INTRAVENOUS FLUIDS: Please see the operative record SPECIMEN: None COMPLICATIONS: None IMPLANTS: Arthrex tgzo-zqawkl-ltge Tightrope system with the button for the [...] The anterior cruciate ligament was reconstructed using vrqv-wklrsz-kvin from patellar tendon autograft with this InternalBrace [...] the femo (more content not included)... Normal [facility] Comment on above: Result Comment: Elec tronically Signed By: Myron Marroquin DO\.br\Date and Time Signed: 04/24/23 07:15 EST Preoperative Documentson Preoperative Documents [id number]#1.00T IFF [facility] Consent for Procedure/Surger yon 04-23-2023 Consent for Procedure/Surgery [id number]#1.00TIF F [facility] Consent for Treatmenton Consent for Treatment [id number]#1.00TIF F [facility] Discharge Instructionson Discharge Instructions ALETA CASTRO :2000 [...] been scheduled. Call for any problems. Where: [address] [place] [address] [employer] (1) Medications What How Much When Instructions Next Dose New acetaminophen-oxycodone (Percocet 5 mg-325 mg oral tablet) 1 Tablets By Mouth As Directed 1-2 po Q4-6h prn pain Dx: S83.512D Duration: 7 days Pickup at [facility]/pharmacy #[id number] New aspirin (Ecotrin 325 mg Tab-EC) 1 Tablets By Mouth Every day Pickup at [facility]/pharmacy #2345 Pharmacy Information [facility]/pharmacy #[id number]: [address] [place], [place] [phone] Allergies Banana (Throat tightness, Hives, Vomiting) Latex (Hives, Swelling) azithromycin (Hives) midodrine (Numbness) Education Materials [place] [facility] DISCHARGE INSTRUCTIONS: ANTERIOR CRUCIATE [...] further clarification or any concerns. ___ Myron Marroquin, DO [facility] [address] [place] [address] Reviewed: 06-23 Revised: 03/29 Common Emergency Awareness [...] your experie (more content not included)... Normal [facility] Comment on above: Result Comment: Elec tronically Signed By: Marcelo MCQUEEN, Shyla Acevedo\.ammy\Date and Time Signed: 04/23/23 10:58 EST H&P Updateon 04-23-2023 H&P Update [id number] [id number]#1.00TIF F Normal [facility] Main OR PACU I Recordon Main OR PACU I Record PACU Phase I Document Type FT Summary Primary Physician: Myron Marroquin DO Finalized Date/Time: 04/23/23 12:22:33 Pt. Name: ALETA CASTRO/Sex: 2000 Female Med Rec #: [id number] Physician: Myron Marroquin DO Financial #: [id number] Pt. Type: A Room/Bed: [place] [address] Admit/Disch: 04/23/23 06:25:15 - Institution: Case Times [...] Signed By: Valencia Jimenez RN 04/23/23 12:22 [facility] Main OR Preoperative Recordo n 04-23-2023 Main OR Preoperative Record PreOp Document Type FT Summary Primary Physician: Myron Marroquin DO Finalized Date/Time: 04/23/23 08:50:41 Pt. Name: ALETA CASTRO/Sex: 2000 Female Med Rec #: [id number] Physician: Myron Marroquin DO Financial #: [id number] Pt. Type: A Room/Bed: [place] [address] Admit/Disch: 04/23/23 06:25:15 - Institution: Case Times [...] By: Lyle Comer RN 04/23/23 08:50 Normal [facility] Monitor Recordon 04-23-2023 Monitor Record [id number]#1.00TI FF [facility] Operative Reporton Operative Report Patient: AILEEN CASTRO Age: 22 years Sex: Female : 2000 Associated Diagnoses: None Author: [facility] ()Cyrus Procedure Nerve Block Block Type: Adductor [...] [facility] ()Cyrus.br\Date and Time Signed: 04/23/23 07:56 EST Patient Education - Texton 0 04-23-2023 Patient Education - Text [place] [facility] DISCHARGE INSTRUCTIONS: ANTERIOR CRUCIATE [...] concerns. ___ Myron Marroquin DO [facility] [address] [place] [address] Reviewed: 06-23 Revised: 03/29 [facility] Progress Note-Physicianon Progress Note-Physician Patient: ALETA CASTRO [...] Daily, # 21 tab(s), Refills(s) 0, Pharmacy: [facility]/pharmacy #[id number], 165, cm, 04/04/23 6:11:00 [...] All Problems H/O: hypothyroidism / SNOMED CT 335042435 / Confirmed POTS (postural orthostatic tachycardia syndrome) / SNOMED CT 5683273549 / Confirmed Physical Examination Vital Signs 04/23/2023 [...] (), Cyrus [place]\.br\Date and Time Signed: 04/23/23 11:06 EST Progress Note-Physician Patient: ALETA CASTRO Age: 22 years Sex: Female : 2000 Associated Diagnoses: None Author: Myron Marroquin DO Postoperative Information Procedure: L knee scope, ACL recon Preoperative Diagnosis: L ACL tear. Postoperative Diagnosis: same. Performed by: daniel. Apartment Leasing Agent: Roby Camacho. Specimens Removed: none. Prosthesis: Arthrex. . Estimated Blood Loss: 10 ml. Complications: None. Anesthesia type: General, block. Normal [facility] Comment on above: Result Comment: Elec tronically Signed By: Myron Marroquin DO\.br\Date and Time Signed: 04/23/23 10:54 EST Progress Note-Physician Patient: ALETA CASTRO MRN: [id number] Age: 22 years Sex: Female : 2000 Associated Diagnoses: None Author: [facility] Cyrus LEACH Preoperative Information Anesthesia history: Patient history: None. [...] Daily, # 21 tab(s), Refills(s) 0, [facility] [id number], 165, cm, 04/04/23 6:11:00 [...] All Problems H/O: hypothyroidism / SNOMED CT 898866324 / Confirmed POTS (postural orthostatic tachycardia syndrome) / SNOMED CT [id number] / Confirmed, Active Problems (2) H/O: hypothyroidism POTS (postural orthostatic tachycardia syndrome) Histories Past Medical History: No active or resolved past medical history items have been selected or recorded. Family History: No family history items have been selected or recorded. Procedure history: Laparoscopic left ovarian R/o ([id number]). Ovarian cyst removal ([id number]). Social History Social & Psychosocial Habits Alcohol [...] U beta hCG Ql Negative . Plan [place] [employer] Anesthesiologists (ASA) physical status classification: Class II. Anesthetic Preoperative Plan: Anesthesia General. Regional Adductor Canal Block Left. Normal [facility] Comment on above: Result Comment: Elec tronically Signed By: Urbano Lan ()Cyrus.br\Date and Time Signed: 04/23/23 07:41 EST U BetaHcg Qualon 04-23-2023 HCG.beta subunit (U) [Moles/Vol] Negative [facility] Comment on above: Performed By: #### 2 [id number] ####[facility] [address] [place] [address] Consent for Procedure/Surger yon 04-16-2023 Consent for Procedure/Surgery [id number] F Normal [facility] CBC w/ Auto Diffon 4 Basophil Absolute 0.0 E9/L Normal 0.0-0.2 [facility] Comment on above: Performed By: #### 2 625338 ####[address] [address] Basophils/100 WBC (Bld) 0.4 % Normal 0.0-2.0 [facility] Comment on above: Performed By: #### 2 486185 ####[address] [address] Eos Absolute 0.1 E9/L Normal 0.0-0.5 [facility] Comment on above: Performed By: #### 2 767557 ####[address] [address] Eosinophils/100 WBC (Bld) 1.0 % Normal 0.0-8.0 [facility] Comment on above: Performed By: #### 2 233120 ####[address] [address] Erythrocyte distribution width (RBC) [Ratio] 12.6 % Normal 10.9-14.2 [facility] Comment on above: Performed By: #### 2 965764 ####[address] [address] Hematocrit (Bld) [Volume fraction] 39.0 % Normal 34.0-46.0 [facility] Comment on above: Performed By: #### 2 105868 ####[address] [address] Hemoglobin (Bld) [Mass/Vol] 13.1 g/dL Normal 12.0-16.0 [facility] Comment on above: Performed By: #### 2 252415 ####[address] [address] Lymph Absolute 1.4 E9/L Normal 1.0-4.0 [facility] Comment on above: Performed By: #### 2 769857 ####[address] [address] Lymphocytes/100 WBC (Bld) 22.2 % Normal 14.0-50.0 [facility] Comment on above: Performed By: #### 2 147522 ####[address] [address] MCH (RBC) [Entitic mass] 30.6 pg Normal 27.0-34.0 [facility] Comment on above: Performed By: #### 2 259362 ####[address] [address] MCHC (RBC) [Mass/Vol] 33.7 g/dL Normal 31.4-36.0 [facility] Comment on above: Performed By: #### 2 567102 ####[address] [address] MCV (RBC) [Entitic vol] 91.0 fL Normal 80.0-100.0 [facility] Comment on above: Performed By: #### 2 073557 ####[address] [address] [place] Absolute 0.4 E9/L Normal 0.2-1.0 [facility] Comment on above: Performed By: #### 2 952374 ####[address] [address] Monocytes/100 WBC (Bld) 5.6 % Normal 4.0-14.0 [facility] Comment on above: Performed By: #### 2 531763 ####[address] [address] Neutro Absolute 4.6 E9/L Normal 2.0-7.5 [facility] Comment on above: Performed By: #### 2 320973 ####[address] [address] Neutro Auto 70.8 % Normal 36.0-75.0 [facility] Comment on above: Performed By: #### 2 316683 ####[address] [address] Platelet 312.0 E9/L Normal 150.0-500.0 [facility] Comment on above: Performed By: #### 2 304699 ####[facility] [address] [place] [address] Platelet mean volume (Bld) [Entitic vol] 7.7 fL Normal 6.4-10.8 [facility] Comment on above: Performed By: #### 2 666119 ####[facility] [address] [place] [address] RBC 4.3 E12/L Normal 4.3-5.9 [facility] Comment on above: Performed By: #### 2 714261 ####[facility] [address] [place] [address] WBC 6.5 E9/L Normal 4.0-11.0 [facility] Comment on above: Performed By: #### 2 520869 ####[facility] [address] [place] [address] Consent for Treatmenton 03-18 Consent for Treatment [id number] F Normal [facility] [...] Normal 80.0 - 100.0 fL Remisol Heme [place] Absolute 0.4 E9/L Normal 0.2 - 1.0 [...] (COVID-19) RNA QUEENIE+probe Ql (Unsp spec) Negative [facility] Other COVID/FLU/RSV RT-PCR Negative [facility] [employer] Other Quick Strepon 04-01-2023 S. pyogenes Org specific cx Ql (Throat) Negative [facility] Other Zauber Strep [employer] [facility] Other US Gallbladderon 07-23-2022 US Gallbladder Clinical [...] by Cornelius Hernandez on 07/23/2022 1043 Normal [facility] Alumni Relations Officer PAP ACOG PANEL 2: 21 to 29on 05-09-2022 . . Normal [facility] Comment on above: Performed By: #### 4 818161 #### [facility] [address] [address] [address] Yovanny Villegas Age Gdln ACOG Testing - [facility] Comment on above: Performed By: #### 4 519498 #### [facility] [address] [place] [address] Dr. Yovanny Villegas DIAGNOSIS: Comment [facility] Comment on above: Result Comment: NEGA TIVE FOR INTRAEPITHELIAL LESION OR MALIGNANCY. Performed By: #### 4 240721 #### [facility] [address] [address] [address] Yovanny Villegas Methodology: Comment [facility] Comment on above: Result Comment: This liquid based ThinPrep(R) pap test was screened with the use of an image guided system. Performed By: #### 4 223862 #### [facility] [address] [address] [address] Yovanny Villegas Note: Comment [facility] Comment on above: Result Comment: The Pap smear is a screening test designed to aid in the detection of premalignant and malignant conditions of the uterine cervix. It is not a diagnostic procedure and should not be used as the sole means of detecting cervical cancer. Both false-positive and false-negative reports do occur. . Performed By: #### 4 274385 #### [facility] [address] [place] [address] Dr. Yovanny Villegas Performed by: Comment Normal [facility] Comment on above: Result Comment: Yanira Navarrete, Assistant Program Manager (ASCP) Performed By: #### 4 089712 #### [facility] [address] [place] [address] Dr. Yovanny Villegas Reflex Criteria: Comment Normal [facility] Comment on above: Result Comment: The HPV DNA reflex criteria were not met with this specimen result therefore, no HPV testing was performed. . Performed By: #### 4 672659 #### [facility] [address] [place] [address] Dr. Yovanny Villegas Specimen adequacy: Comment Normal [facility] Comment on above: Result Comment: Sati sfactory for evaluation. Endocervical and/or squamous metaplastic cells (endocervical component) are present. Performed By: #### 4 208525 #### [facility] [address] [place] [address] Dr. Yovanny Villegas CHLAMYDIA/GONOCOCCUS QUEENIE ( AB/URINE/PAPon 07-28-2021 Chlamydia trachomatis, QUEENIE Negative Normal Negative [facility] Comment on above: Performed By: #### C T/NGNA #### [facility] [address] [place] [address] Dr. Yovanny Villegas Neisseria gonorrhoeae, QUEENIE Negative Normal Negative [facility] Comment on above: Performed By: #### C T/NGNA #### [facility] [address] [place] [address] Dr. Yovanny Villegas VAGINITIS/VAGINOSIS DNA PROB Anders 07-27-2021 Rickey species Negative Normal Negative [facility] Comment on above: Performed By: #### V AGINT #### [facility] [address] [place] [address] Dr. Yovanny Villegas Gardnerella vaginalis Negative Normal Negative [facility] Comment on above: Performed By: #### V AGINT #### [facility] [address] [place] [address] Dr. Yovanny Villegas Trichomonas vaginalis Negative Normal Negative [facility] Comment on above: Performed By: #### V AGINT #### [facility] [address] [place] [address] Dr. Yovanny Villegas XR KNEE LEFT (3 [...] Deshaun Aguilar MD 05/24/21 Final result Normal [facility] No fracture or dislocation. [facility] EXAMINATION: THREE XRAY VIEWS OF THE LEFT KNEE 05/24/2021 8:48 pm COMPARISON: None. HISTORY: ORDERING SYSTEM PROVIDED HISTORY: pain eval occult bony injury TECHNOLOGIST PROVIDED HISTORY: pain eval occult bony injury FINDINGS: No fracture, dislocation, or focal osseous lesion is noted. No significant soft tissue abnormality seen. [facility] CON[facility] Deshaun Aguilar MD - 05/24/2021 EXAMINATION: THREE XRAY VIEWS OF THE LEFT KNEE 05/24/2021 8:48 pm COMPARISON: None. HISTORY: ORDERING SYSTEM PROVIDED HISTORY: pain eval occult bony injury TECHNOLOGIST PROVIDED HISTORY: pain eval occult bony injury FINDINGS: No fracture, dislocation, or focal osseous lesion is noted. No significant soft tissue abnormality seen. IMPRESSION: No fracture or dislocation. [employer] Phone: Radiology Study observation (narrative) [employer] Phone: XR KNEE LEFT (3 VIEWS)Ordere d By: Deshaun Aguilar on 05-24-2021 [employer] Phone: COVID Quick Testingon 2021 Result Negative [facility] Other Quick Strepon 05-01-2021 S. pyogenes Org specific cx Ql (Throat) Positive [employer] [facility] Other Quick Strep [facility] Other COVID Quick Testingon 2021 Result Negative [facility] Other Quick Fluon 04-07-2021 FLUAV Ab CF (S) [Titer] Negative [employer] [facility] Other FLUBV Ab CF (S) [Titer] Negative [facility] Other XR SACRUM COCCYX (MIN 2 VIEW S)on 12-14-2020 XR SACRUM COCCYX (MIN 2 VIEWS) EXAMINATION: THREE XRAY VIEWS OF THE SACRUM/COCCYX 12/14/2020 3:10 am COMPARISON: None. HISTORY: ORDERING SYSTEM PROVIDED HISTORY: fall at work - hit [id number] TECHNOLOGIST PROVIDED HISTORY: fall at work - hit [id number] FINDINGS: The sacroiliac joints are normally aligned. The visualized portions the pelvis are. There is no fracture of the sacrum or coccyx evident. IMPRESSION: No acute osseous abnormality of the sacrum or coccyx evident. Interpreted by: Loc Oswald MD Signed by: Loc Oswald MD 12/14/20 Final result Normal [facility] XR SACRUM COCCYX (MIN 2 VIEW S)Ordered By: David Dominguez on 12-14-2020 No acute osseous abnormality of the sacrum or coccyx evident. [employer] Phone: EXAMINATION: THREE X RAY VIEWS OF THE SACRUM/COCCYX 12/14/2020 3:10 am COMPARISON: None. HISTORY: ORDERING SYSTEM PROVIDED HISTORY: fall at work - hit [id number] TECHNOLOGIST PROVIDED HISTORY: fall at work - hit [id number] FINDINGS: The sacroiliac joints are normally aligned. The visualized portions the pelvis are. There is no fracture of the sacrum or coccyx evident. [facility] [employer] [employer] Phone: Cu[facility]htemoc, Mhpn Incoming Radiant Results From [employer] - 12/14/2020 3:24 AM EDT EXAMINATION: THREE XRAY VIEWS OF THE SACRUM/COCCYX 12/14/2020 3:10 am COMPARISON: None. HISTORY: ORDERING SYSTEM PROVIDED HISTORY: fall at work - hit [id number] TECHNOLOGIST PROVIDED HISTORY: fall at work - hit [id number] FINDINGS: The sacroiliac joints are normally aligned. The visualized portions the pelvis are. There is no fracture of the sacrum or coccyx evident. IMPRESSION: No acute osseous abnormality of the sacrum or coccyx evident. [employer] Phone: [facility] [employer] Phone: CT HEAD WO CONTRASTon 2020 CT [...] Maira Cruz MD 09/19/20 Final result Normal [facility] CT Head WO ContrastOrdered B y: Luis Carlos Fragoso on 09-19-[address] examination of the brain. [employer] Phone: EXAMINATION: CT OF T HE HEAD [...] of the visualized skull or soft tissues. [employer] Phone: [facility], Mhpn Incoming Radiant Results From [employer] - 09/19/2020 4:42 PM EDT EXAMINATION: CT [...] Unremarkable noncontrast CT examination of the brain. [employer] Phone: [employer] Phone: Coding Summaryon 10-27-2019 Coding Summary CODING DATE: 020 [facility] STATUS: Home PAYOR: [facility] ADMIT DX: REASON FOR VISIT DX: J02.9 [...] Pablo Date Saved: 10/27/2019 03:10 pm Normal [facility] 2019 Novel Coronavirus (CoVI D-19), QUEENIE LCon 10-26-2019 SARS-CoV-2, QUEENIE (COVID-19) LC Not Detected Not Detected [facility] Comment on above: Order Comment: [id number] 1 Result Comment: This test was developed and its performance characteristics determined by [facility]. This test has not been FDA cleared [...] detected) result in this assay. Performed At: [facility] [address] [facility] [place] [id number] Ruba Washburn MD Ph:[phone] Performed By: #### 6 [id number] #### [facility] (DEFAULT) [address] [place] [address] Consent Formson 10-26-2019 Consent Forms [id number] TIFF Normal [facility] CNCOon 07-15-2017 CNCO Letter TextToll Free : [phone] [facility] [address] [place], [place] [address]Tnizl: [phone]: [facility] [place], [place] [address]Dnixt: [phone]: [facility] [place], [place] [address]Vxkwe: [phone]: Steve Pablo M.D., Ronaldo Marquez M.D.David Becerril M.D.Papito Sood D.O..Myriam Chaudhari M.D.Deandre Montoya M.D. Matthew Huff M.D.Date: July 15, 2017Re: Aleta GarayTO WHOM IT MAY CONCERN:She was seen in our office today.Sincerely,Katelin Cardona PSR(signed electronically to expedite mailing) Normal [facility] CNOVSPon 07-15-2017 CNOVSP Visit (SP) Office (HEMACL) BEVSYEDA MATTHEW STEVEN ([id number]) 89 FDate Time Provider Department07/15/17 3:15 PM [...] Gait normal.Collected: 05/15/17 1043Resulting lab: [facility] MAIN LABORATORYValue: (NOTE)Comment: Performing Pathologist: [...] list. no changes .Referring Provider: DAVID BECERRIL [[id number]]Allergies As of Date: 07/15/2017(No Known Allergies)Date Reviewed: [...] by DAVID BECERRIL MD on 07/17/17 Normal [facility] PROGRESSon 07-15-2017 PROGRESS HNO ID: [id number]: David Escaleraervice: (none)Author Type: PhysicianType: Progress NotesFiled: [...] Gait normal.Collected: 05/15/17 1043Resulting lab: [facility] MAIN LABORATORYValue: (NOTE)Comment: Performing Pathologist: [...] consider further testingAled Sandeep Becerril MD Normal [facility] Platelet Func Scrnon 018 COL/ADP Cartridge 85 CT (sec) Normal <118 [facility] Comment on above: Result Comment: Resu lts are reported as Closure Time (CT) in seconds. Performed By: #### P LTSCP ####[facility] [address], [place] [phone] COL/EPI Cartridge 105 CT (sec) Normal <199 [facility] Comment on above: Result Comment: Resu lts are reported as Closure Time (CT) in seconds. Performed By: #### P LTSCP ####[facility] [address], [place] [phone] Plt Func Scr Interp (NOTE) Normal [facility] Comment on above: Result Comment: Perf [...] bleeding disorder. Performed By: #### P LTSCP ####[facility] [address], [place] [phone] Remote CBCDIF (for [facility] use o nly)on 05-15-2017 Abs Baso <0.03 Normal <0.11 [facility] Comment on above: Performed By: #### R CBCDF ####[address] [address] [address] [phone] Abs [place] 0.53 k/uL Normal <0.87 [facility] Comment on above: Performed By: #### R CBCDF ####[address] [address] [address] [phone] Abs Neut 2.59 k/uL Normal 1.45-7.50 [facility] Comment on above: Performed By: #### R CBCDF ####[address] [address] [address] [phone] Basophils/100 WBC Auto (Bld) 0.4 % Normal [facility] Comment on above: Performed By: #### R CBCDF ####[address] [address] [address] [phone] DTYPE Auto Diff Normal [facility] Comment on above: Performed By: #### R CBCDF ####[address] [address] [address] [phone] Eosinophils 0.07 10*3/uL Normal <0.46 [facility] Comment on above: Performed By: #### R CBCDF ####[address] [address] [address] [phone] Eosinophils/100 leukocytes 1.5 % Normal [facility] Comment on above: Performed By: #### R CBCDF ####[address] [address] [address] [phone] Erythrocyte distribution width Auto Ratio (RBC) 12.2 % Normal 11.5-15.0 [facility] Comment on above: Performed By: #### R CBCDF ####[address] [address] [address] [phone] Erythrocytes (RBC) 4.15 10*6/uL Normal 3.90-5.20 [facility] Comment on above: Performed By: #### R CBCDF ####[address] [address] [address] [place], [place] [phone] Erythrocytes (RBC) 0.0 /100 WBC Normal 0 [facility] Comment on above: Performed By: #### R CBCDF ####[address] [address] [address] [place], [place] [phone] Erythrocytes (RBC) 10*6/uL Normal <0.01 [facility] Comment on above: Performed By: #### R CBCDF ####[address] [phone] Hematocrit (HCT) 39.4 % Normal 36.0-46.0 [facility] Comment on above: Performed By: #### R CBCDF ####[address] [phone] Hemoglobin mass conc (Bld) 12.8 g/dL Normal 11.5-15.5 [facility] Comment on above: Performed By: #### R CBCDF ####[address] [address] [place], [place] [phone] Lymphocytes 1.37 10*3/uL Normal 1.00-4.00 [facility] Comment on above: Performed By: #### R CBCDF ####[address] [address] [address] [place], [place] [phone] Lymphocytes/100 leukocytes 29.9 % Normal [facility] Comment on above: Performed By: #### R CBCDF ####[address] [address] [place], [place] [phone] MCH 30.8 pG Normal 26.0-34.0 [facility] Comment on above: Performed By: #### R CBCDF ####[address] [place], [place] [phone] MCHC mass conc (RBC) 32.5 g/dL Normal 30.5-36.0 [facility] Comment on above: Performed By: #### R CBCDF ####[address] [address] [place], [place] [phone] MCV 94.9 fL Normal 80.0-100.0 [facility] Comment on above: Performed By: #### R CBCDF ####[address] [address] [place], [place] [phone] Monocytes/100 leukocytes 11.6 % Normal [facility] Comment on above: Performed By: #### R CBCDF ####[address] [address] [place], [place] [phone] Neutrophils/100 WBC Auto (Bld) 56.6 % Normal [facility] Comment on above: Performed By: #### R CBCDF ####[address] [phone] Platelet mean volume (PMV) 10.2 fL Normal 9.0-12.7 [facility] Comment on above: Performed By: #### R CBCDF ####[address] [address] [place], [place] [phone] Platelets 229 10*3/uL Normal 150-400 [facility] Comment on above: Performed By: #### R CBCDF ####[address] [address] [place], [place] [phone] WBC (Leukocytes) 4.58 10*3/uL Normal 3.70-11.00 [facility] Comment on above: Performed By: #### R CBCDF ####[address] [address] [place], [place] [phone] CNCOon 04-29-2017 CNCO Letter TextToll Free : [phone] [facility] [address] [place], [place] [address]Mrvtc: [phone]: [facility] [address] [place], [place] [address]Lghip: [phone]: [facility] [address] [place], [place] [address]Rqtls: [phone]: Steve Pablo M.D., Ronaldo Marquez M.D.David Becerril M.D.Paptio Sood D.O..Carin Hoover M.D. Matthew Huff M.D.Date: April 29, 2017Re: Aleta Elliott WHOM IT MAY CONCERN:She was seen in our office today.Sincerely,Karly Pizarro Psr(signed electronically to expedite mailing) Normal [facility] CNOVSPon 04-29-2017 CNOVSP Visit (SP) Office ([place]) BEVSYEDA MATTHEW JANESSA ([id number]) 89 FDate Time Provider Department04/29/17 2:30 PM DAVID BECERRIL HEMGASPER During your visit [...] patientand her mother at length. Would check [id number] at this time, further testingbased on results.1. 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 Would check [id number] at this time, furthertesting based on results.1. 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, choice of management likely to be influenced by history ofPOTSAlfred Sandeep Becerril MD Normal [facility] Vital Signs Date Time Vital Sign Value Performing Clinician Facility 12-23-2024 13:57-0400 Body mass index (BMI) [Ratio] 29.42 kg/m2 Luna Steen NP Work Phone: [facility] 12-23-2024 13:57-0400 Body weight 77.75 kg Luna Steen NP Work Phone: [facility] 12-23-2024 13:57-0400 Diastolic blood pressure 70 mm[Hg] Luna Steen NP Work Phone: [facility] 12-23-2024 13:57-0400 Systolic blood pressure 110 mm[Hg] Luna Steen NP Work Phone: [facility] 12-09-2024 14:07-0400 Body mass index (BMI) [Ratio] 28.84 kg/m2 Doc Thomas DO Work Phone: [facility] 12-09-2024 14:07-0400 Body weight 76.2 kg Doc William DO Work Phone: [facility] 12-09-2024 14:07-0400 Diastolic blood pressure 74 mm[Hg] Doc William DO Work Phone: [facility] 12-09-2024 14:07-0400 Systolic blood pressure 110 mm[Hg] Doc William DO Work Phone: [facility] 11-25-2024 14:04-0400 Body mass index (BMI) [Ratio] 29.95 kg/m2 Luna Enio DESKTOP SUPPORT ENGINEER Work Phone: [facility] 11-25-2024 14:04-0400 Body weight 79.15 kg Luna Enio DESKTOP SUPPORT ENGINEER Work Phone: [facility] 11-25-2024 14:04-0400 Diastolic blood pressure 60 mm[Hg] Luna Enio DESKTOP SUPPORT ENGINEER Work Phone: [facility] 11-25-2024 14:04-0400 Systolic blood pressure 110 mm[Hg] Luna Enio DESKTOP SUPPORT ENGINEER Work Phone: [facility] 10-28-2024 14:39-0400 Body mass index (BMI) [Ratio] 28.49 kg/m2 Pretty Chaidez PA Work Phone: [facility] 10-28-2024 14:39-0400 Body weight 75.3 kg Pretty Chaidez PA Work Phone: [facility] 10-28-2024 14:39-0400 Diastolic blood pressure 80 mm[Hg] Pretty Dm PA Work Phone: [facility] 10-28-2024 14:39-0400 Systolic blood pressure 130 mm[Hg] Pretty Chaidez PA Work Phone: [facility] 09-30-2024 15:34-0400 Body mass index (BMI) [Ratio] 28.29 kg/m2 Doc William DO Work Phone: [facility] 09-30-2024 15:34-0400 Body weight 74.75 kg Doc William DO Work Phone: [facility] 09-30-2024 15:34-0400 Diastolic blood pressure 72 mm[Hg] Doc William DO Work Phone: [facility] 09-30-2024 15:34-0400 Systolic blood pressure 110 mm[Hg] Doc William DO Work Phone: [facility] 08-05-2024 14:27-0400 Body mass index (BMI) [Ratio] 30.21 kg/m2 Doc William DO Work Phone: [facility] 08-05-2024 14:27-0400 Body weight 79.83 kg Doc William DO Work Phone: [facility] 08-05-2024 14:27-0400 Diastolic blood pressure 76 mm[Hg] Doc William DO Work Phone: [facility] 08-05-2024 14:27-0400 Systolic blood pressure 110 mm[Hg] Doc William DO Work Phone: [facility] 02-26-2024 15:41-0500 Body height 162.6 cm Myron Pocos DO Work Phone: [facility] 02-26-2024 15:41-0500 Body mass index (BMI) [Ratio] 30.21 kg/m2 Myron Pocos DO Work Phone: [facility] 02-26-2024 15:41-0500 Body weight 79.83 kg Myron Pocos DO Work Phone: [facility] 02-19-2024 15:26-0500 Body height 162.6 cm Rosalie Payne MD Work Phone: [facility] 02-19-2024 15:26-0500 Body mass index (BMI) [Ratio] 30.21 kg/m2 Rosalie Payne MD Work Phone: [facility] 02-19-2024 15:26-0500 Body weight 79.83 kg Rosalie Payne MD Work Phone: [facility] 02-19-2024 15:26-0500 Heart rate 88 /min Rosalie Payne MD Work Phone: [facility] 02-19-2024 15:26-0500 SaO2% (BldA) [Mass fraction] 98 % Rosalie Payne MD Work Phone: [facility] 12-09-2023 08:00-0400 Body height 162.6 cm Kelvin Schwartz DO Work Phone: [facility] 12-09-2023 08:00-0400 Body mass index (BMI) [Ratio] 30.9 kg/m2 Kelvin Schwartz DO Work Phone: [facility] 12-09-2023 08:00-0400 Body weight 81.65 kg Kelvin Schwartz DO Work Phone: [facility] 09-02-2023 14:25-0400 Diastolic blood pressure 73 mm[Hg] MD Rosalie Payne Work Phone: [facility] 09-02-2023 14:25-0400 Heart rate 80 /min MD Rosalie Payne Work Phone: [facility] 09-02-2023 14:25-0400 Respiratory rate 18 /min MD Rosalie Payne Work Phone: [facility] 09-02-2023 14:25-0400 SaO2% (BldA) [Mass fraction] 100 % MD Rosalie Payne Work Phone: [facility] 09-02-2023 14:25-0400 Systolic blood pressure 122 mm[Hg] MD Rosalie Payne Work Phone: [facility] 09-02-2023 11:31-0400 Body height 165.1 cm MD Rosalie Payne Work Phone: [facility] 09-02-2023 11:31-0400 Body temperature 98.4 [degF] MD Rosalie Payne Work Phone: [facility] 09-02-2023 11:31-0400 Body weight 77.11 kg MD Rosalie Payne Work Phone: [facility] 07-25-2023 14:21-0400 Body height 165.1 cm [facility] 07-25-2023 14:21-0400 Body mass index (BMI) [Ratio] 28.3 kg/m2 [facility] 07-25-2023 14:21-0400 Body weight 77.11 kg [facility] 07-25-2023 14:21-0400 Diastolic blood pressure 72 mm[Hg] [facility] 07-25-2023 14:21-0400 Heart rate 81 /min [facility] 07-25-2023 14:21-0400 Systolic blood pressure 111 mm[Hg] [facility] 04-03-2023 14:55-0500 Diastolic blood pressure 87 mm[Hg] Myron Pocos [facility] 04-03-2023 14:55-0500 Heart rate 105 /min Myron Pocos [facility] 04-03-2023 14:55-0500 Mean blood pressure 103 mm[Hg] Myron Pocos [facility] 04-03-2023 14:55-0500 Systolic blood pressure 136 mm[Hg] Myron Pocos [facility] 04-03-2023 14:53-0500 Heart rate 98 /min Myron Pocos [facility] 04-03-2023 14:53-0500 SaO2% (BldA) [Mass fraction] 99 % Myron Pocos [facility] 04-03-2023 14:53-0500 Diastolic blood pressure 96 mm[Hg] Myron Pocos [facility] 04-03-2023 14:53-0500 Mean blood pressure 112 mm[Hg] Myron Pocos [facility] 04-03-2023 14:53-0500 Systolic blood pressure 145 mm[Hg] Myron Marroquin [facility] 04-03-2023 14:52-0500 Respiratory rate 16 /min Myron Caroos [facility] 04-01-2023 10:45-0500 Body height 165.1 cm Destinee Kristine Other [facility] Other 04-01-2023 10:45-0500 Body mass index (BMI) [Ratio] 28.29 kg/m2 Destinee Kristine Other [facility] Other 04-01-2023 10:45-0500 Body temperature 98.1 [degF] Destinee Kristine Other [facility] Other 04-01-2023 10:45-0500 Body weight 77.11 kg Destinee Kristine Other [facility] Other 04-01-2023 10:45-0500 Respiratory rate 18 /min Destinee Kristine Other [facility] Other 04-01-2023 10:45-0500 SaO2% (BldA) [Mass fraction] 99 % Destinee Kristine Other [facility] Other 08-21-2021 11:25-0400 Body height 165.1 cm Carlie Thomas Other [facility] Other 08-21-2021 11:25-0400 Body mass index (BMI) [Ratio] 27.12 kg/m2 Carlie Thomas Other [facility] Other 08-21-2021 11:25-0400 Body temperature 98.6 [degF] Carlie Thomas Other [facility] Other 08-21-2021 11:25-0400 Body weight 73.94 kg Carlie Thomas Other [facility] Other 08-21-2021 11:25-0400 Respiratory rate 18 /min Carlie Thomas Other [facility] Other 08-21-2021 11:25-0400 SaO2% (BldA) [Mass fraction] 97 % Carlie Thomas Other [facility] Other 05-24-2021 20:36-0500 Body temperature 97.7 [degF] Artis Ameriprimettan DO Work Phone: [facility] 05-24-2021 20:36-0500 Diastolic blood pressure 81 mm[Hg] Artis Ameriprimettan DO Work Phone: [facility] 05-24-2021 20:36-0500 Heart rate 101 /min Artis Ameriprimettan DO Work Phone: [facility] 05-24-2021 20:36-0500 Respiratory rate 16 /min Artis Ameriprimettan DO Work Phone: [facility] 05-24-2021 20:36-0500 SaO2% (BldA) [Mass fraction] 97 % Artis Ameriprimettan DO Work Phone: [facility] 05-24-2021 20:36-0500 Systolic blood pressure 131 mm[Hg] Artis Ameriprimettan DO Work Phone: [facility] 05-11-2021 13:10-0500 Body height 165.1 cm Adriana Evangelista Other [facility] Other 05-11-2021 13:10-0500 Body mass index (BMI) [Ratio] 27.12 kg/m2 Adriana Evangelista Other [facility] Other 05-11-2021 13:10-0500 Body temperature 97.8 [degF] Adriana Evangelista Other [facility] Other 05-11-2021 13:10-0500 Body weight 73.94 kg Adirana Evangelista Other [facility] Other 05-11-2021 13:10-0500 Diastolic blood pressure 90 mm[Hg] Adriana Evangelista Other [facility] Other 05-11-2021 13:10-0500 Respiratory rate 18 /min Adriana Evangelista Other [facility] Other 05-11-2021 13:10-0500 SaO2% (BldA) [Mass fraction] 99 % Adriana Evangelista Other [facility] Other 05-11-2021 13:10-0500 Systolic blood pressure 129 mm[Hg] Adriana Evangelista Other [facility] Other 05-01-2021 11:40-0500 Body height 165.1 cm Carlie Martha Other [facility] Other 05-01-2021 11:40-0500 Body mass index (BMI) [Ratio] 26.62 kg/m2 Carlie Thomas Other [facility] Other 05-01-2021 11:40-0500 Body temperature 98.6 [degF] Carlie Martha Other [facility] Other 05-01-2021 11:40-0500 Body weight 72.58 kg Carlie Thomas Other [facility] Other 05-01-2021 11:40-0500 Respiratory rate 18 /min Carlie Thomas Other [facility] Other 05-01-2021 11:40-0500 SaO2% (BldA) [Mass fraction] 99 % Carlie Thomas Other [facility] Other 04-07-2021 12:00-0500 Body height 165.1 cm Sandeep Ramirez Other [facility] Other 04-07-2021 12:00-0500 Body mass index (BMI) [Ratio] 26.62 kg/m2 Sandeep Ramirez Other [facility] Other 04-07-2021 12:00-0500 Body temperature 97.6 [degF] Sandeep Ramirez Other [facility] Other 04-07-2021 12:00-0500 Body weight 72.58 kg Sandeep Ramirez Other [facility] Other 04-07-2021 12:00-0500 SaO2% (BldA) [Mass fraction] 98 % Sandeep Ramirez Other [facility] Other 12-13-2020 23:25-0400 Diastolic blood pressure 89 mm[Hg] David Dominguez MD Work Phone: [facility] Work Phone: 12-13-2020 23:25-0400 Systolic blood pressure 141 mm[Hg] David Dominguez MD Work Phone: [facility] Work Phone: 12-13-2020 23:23-0400 Body height 165.1 cm David Dominguez MD Work Phone: [facility] Work Phone: 12-13-2020 23:23-0400 Body mass index (BMI) [Ratio] 26.63 kg/m2 David Dominguez MD Work Phone: [facility] Work Phone: 12-13-2020 23:23-0400 Body temperature 98.29 [degF] David Dominguez MD Work Phone: [facility] Work Phone: 12-13-2020 23:23-0400 Body weight 72.58 kg David Dominguez MD Work Phone: [facility] Work Phone: 12-13-2020 23:23-0400 Heart rate 79 /min David Dominguez MD Work Phone: [facility] Work Phone: 12-13-2020 23:23-0400 Respiratory rate 14 /min David Dominguez MD Work Phone: [facility] Work Phone: 12-13-2020 23:23-0400 SaO2% (BldA) [Mass fraction] 99 % David Dominguez MD Work Phone: [facility] Work Phone: 09-19-2020 15:56-0400 Body temperature 98.6 [degF] [facility] Work Phone: 09-19-2020 15:56-0400 Diastolic blood pressure 90 mm[Hg] [facility] Work Phone: 09-19-2020 15:56-0400 Heart rate 103 /min [facility] Work Phone: 09-19-2020 15:56-0400 Respiratory rate 16 /min [facility] Phone: 09-19-2020 15:56-0400 SaO2% (BldA) [Mass fraction] 100 % [facility] Phone: 09-19-2020 15:56-0400 Systolic blood pressure 139 mm[Hg] [facility] Phone: Encounters Encounter Date Encounter Type Care Provider Facility Start: 12-26-2024 End: 12-26-2024 Clinisync Result Encounter Generic External Data Provider [facility] Unsolicited Start: 12-26-2024 End: 12-26-2024 Clinisync Result Encounter Generic External Data Provider [facility] External Department Unsolicited Start: 12-23-2024 End: 12-23-2024 Bamboo flowsheet Luna Steen DESKTOP SUPPORT ENGINEER Work Phone: [facility] Start: 12-23-2024 End: 12-23-2024 Bamboo flowsheet Luna Steen DESKTOP SUPPORT ENGINEER Work Phone: [facility] Start: 12-23-2024 End: 12-23-2024 flow sheet Luna Steen DESKTOP SUPPORT ENGINEER Work Phone: [facility] Comment on above: Third trimester preg shakila ([facility]); 31 weeks gestation of ([facility]) Start: 12-23-2024 End: 12-23-2024 ambulatory LUNA STEEN Not Available Start: 12-09-2024 End: 12-09-2024 Bamboo flowsheet Doc William DO Work Phone: [facility] Start: 12-09-2024 End: 12-09-2024 Bamboo flowsheet Doc William DO Work Phone: [facility] Start: 12-09-2024 End: 12-09-2024 flow sheet Doc William DO Work Phone: [facility] Comment on above: Third trimester preg shakila ([facility]); 29 weeks gestation of ([facility]); Yeast infection Start: 12-09-2024 End: 12-09-2024 ambulatory DOC THOMAS Not Available Start: 11-27-2024 End: 11-27-2024 ambulatory [facility] Start: 11-25-2024 End: 11-25-2024 Bamboo flowsheet Luna Steen DESKTOP SUPPORT ENGINEER Work Phone: [facility] Start: 11-25-2024 End: 11-25-2024 Bamboo flowsheet Luna Steen DESKTOP SUPPORT ENGINEER Work Phone: [facility] Start: 11-25-2024 End: 11-25-2024 flow sheet Luna Steen DESKTOP SUPPORT ENGINEER Work Phone: [facility] Comment on above: Second trimester pre gnancy ([facility]); 27 weeks gestation of ([facility]); 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 End: 11-25-2024 ambulatory [...] Comment on above: Second trimester pre gnancy ([facility]); 23 weeks gestation of ([facility]); Diabetes mellitus screening; STD exposure; Well woman exam with routine gynecological exam; Heart palpitations Start: 10-28-2024 End: 10-28-2024 ambulatory PRETTY CHAIDEZ Not Available Start: 10-28-2024 End: 10-28-2024 Bamboo flowsheet Pretty ARELLANO Work Phone: [facility] Start: 10-28-2024 End: 11-03-2024 Bamboo flowsheet Pretty ARELLANO Work Phone: [facility] Start: 10-28-2024 End: 11-03-2024 Clinisync Result Encounter Generic External Data Provider [facility] External Department Unsolicited Start: 10-28-2024 End: 10-30-2024 External Result Encounter Luna Steen DESKTOP SUPPORT ENGINEER Work Phone: [facility] Unsolicited Start: 10-06-2024 End: 10-06-2024 Clinisync Result Encounter Doc William DO Work Phone: [facility] Unsolicited Start: 10-06-2024 End: 10-06-2024 Clinisync Result Encounter Doc William DO Work Phone: [facility] Unsolicited Start: 09-30-2024 End: 09-30-2024 flow sheet Doc William DO Work Phone: [facility] Comment on above: 19 weeks gestation o f ([facility]); Second trimester ([facility]) Start: 09-30-2024 End: 09-30-2024 ambulatory DOC WILLIAM Not Available Start: 09-28-2024 End: 09-28-2024 Clinisync Result Encounter Generic External Data Provider [facility] External Department Unsolicited Start: 09-28-2024 End: 09-28-2024 Clinisync Result Encounter Generic External Data Provider [facility] External Department Unsolicited Start: 09-02-2024 End: 09-02-2024 flow sheet Pretty ARELLANO Work Phone: [facility] Comment on above: Second trimester pre gnancy ([facility]); 15 weeks gestation of ([facility]); Screening, , for anatomic survey ([facility]) Start: 09-02-2024 End: 09-02-2024 ambulatory PRETTY CHAIDEZ [...] 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 ; 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[facility]) Start: 08-05-2024 End: 08-05-2024 ambulatory DOC WILLIAM [...] 8w5d Start: 07-16-2024 End: 07-16-2024 ambulatory DOC THOMAS Not Available Start: 02-26-2024 End: 02-26-2024 Patient [...] FM 100 Start: 12-27-2023 End: 12-27-2023 ambulatory Peep Kirby PT Work Phone: [facility] Comment on above: Acute pain of left k nee (Primary Dx); Status post arthroscopic reconstruction of anterior cruciate ligament of left knee using quadriceps tendon autograft Start: 12-27-2023 End: 12-27-2023 Bamboo flowsheet Pepe J Lilo PT Work Phone: [facility] Start: 12-27-2023 End: 12-27-2023 Bamboo flowsheet Pepe Yañez Lilo PT Work Phone: [facility] Start: 12-24-2023 End: 12-24-2023 ambulatory Nereyda Vieira ASSOCIATE FINANCIAL ADVISOR Work Phone: [facility] Comment on above: Acute pain of left k nee (Primary Dx); Status post arthroscopic reconstruction of anterior cruciate ligament of left knee using quadriceps tendon autograft Start: 12-24-2023 End: 12-24-2023 Bamboo flowsheet Nereyda Vieira ASSOCIATE FINANCIAL ADVISOR Work Phone: [facility] Start: 12-24-2023 End: 12-24-2023 Bamboo flowsheet Nereyda Vieira ASSOCIATE FINANCIAL ADVISOR Work Phone: [facility] Start: 12-17-2023 End: 12-17-2023 ambulatory Pepe Khangs PT Work Phone: [facility] Comment [...] (Primary Dx) Start: 12-03-2023 End: 12-03-2023 ambulatory Nereyda Vieira ASSOCIATE FINANCIAL ADVISOR Work Phone: [facility] Comment on above: Acute pain of left k nee (Primary Dx); Status post arthroscopic reconstruction of anterior cruciate ligament of left knee using quadriceps tendon autograft Start: 12-03-2023 End: 12-03-2023 Bamboo flowskeara Vieira ASSOCIATE FINANCIAL ADVISOR Work Phone: [facility] Start: 12-03-2023 End: 12-03-2023 Bamboo flowsheet Nereyda Vieira ASSOCIATE FINANCIAL ADVISOR Work Phone: [facility] Start: 11-19-2023 End: 11-19-2023 ambulatory Jennifer Dozier ASSOCIATE FINANCIAL ADVISOR [facility] Comment on above: Acute pain of left k nee (Primary Dx); Status post arthroscopic reconstruction of anterior cruciate ligament of left knee using quadriceps tendon autograft Start: 11-19-2023 End: 11-19-2023 Bamboo flowsheet Jennifer Dozier ASSOCIATE FINANCIAL ADVISOR [facility] Start: 11-19-2023 End: 11-19-2023 Bamboo anithaheet Jennifer Dozier ASSOCIATE FINANCIAL ADVISOR [facility] Start: 11-12-2023 End: 11-12-2023 ambulatory Nereyda Vieira ASSOCIATE FINANCIAL ADVISOR Work Phone: [facility] Comment on above: Acute pain of left k nee (Primary Dx); Status post arthroscopic reconstruction of anterior cruciate ligament of left knee using quadriceps tendon autograft Start: 11-12-2023 End: 11-12-2023 Bamboo gaby Vieira ASSOCIATE FINANCIAL ADVISOR Work Phone: [facility] Start: 11-12-2023 End: 11-12-2023 Bamboo gaby Vieira ASSOCIATE FINANCIAL ADVISOR Work Phone: [facility] Start: 09-02-2023 Non-patient / Non-visit MD Hector Payne Work Phone: [facility] Work Phone: Start: 09-02-2023 End: 09-02-2023 Admission to same day surgery center MD Rosalie Payne Work Phone: [facility] Work Phone: Start: 09-02-2023 End: 09-02-2023 ambulatory MD Rosalie Payne Work Phone: [facility] Work Phone: Start: 07-25-2023 End: 07-25-2023 ambulatory [facility] Work Phone: Start: 07-25-2023 End: 07-25-2023 Patient encounter procedure [facility] Work Phone: Start: 04-23-2023 End: 04-23-2023 ambulatory Myron Marroquin Facility:[facility] Start: 04-22-2023 Chart abstracting Pepe Khan gs PT Work Phone: [facility] Start: 04-03-2023 End: 04-04-2023 ambulatory Myron Washburn Pocos Facility:[facility] Start: 04-03-2023 End: 04-03-2023 Patient encounter procedure Myron Marroquin [facility] Start: 04-01-2023 End: 04-01-2023 ambulatory Destinee Carmona Other [facility] Other Start: 04-01-2023 Office outpatient vi sit 15 minutes Destinee Carmona [facility] Start: 05-01-2022 End: 05-01-[address] DOC THOMAS . Facility: Start: 08-21-2021 End: 08-21-2021 ambulatory Carlie Thomas Other [facility] Other Start: 08-21-2021 Office outpatient vi sit 15 minutes Carlie Thomas [facility] Start: 07-26-2021 End: 07-26-[address] DOC THOMAS . Facility: Start: 05-24-2021 Emergency department patient visit ARTIS YODER [facility] Start: 05-24-2021 End: 05-24-2021 Emergency department patient visit Artis Yañez Carter DO Work Phone: [facility] ED Comment on above: Contusion of left kn ee, initial encounter (Primary Dx) Start: 05-11-2021 End: 05-11-2021 ambulatory Adriana Evangelista Other [facility] Other Start: 05-11-2021 Office outpatient vi sit 15 minutes Adriana Evangelista [facility] Start: 05-01-2021 (URG) Urgent Care Visit Carlie Jo Ann quintanilla [facility] Start: 05-01-2021 End: 05-01-2021 ambulatory Carlie Thomas Other [facility] Other Start: 04-07-2021 End: 04-07-2021 ambulatory Sandeep Ramirez Other [facility] Other Start: 04-07-2021 Office outpatient vi sit 15 minutes Sandeep Ramirez [facility] Start: 12-14-2020 End: 12-14-2020 Emergency department patient visit DAVID DOMINGUEZ [facility] Start: 12-14-2020 End: 12-14-2020 Emergency department patient visit David Dominguez MD Work Phone: [facility] Comment on above: Tailbone injury, ini tial encounter (Primary Dx) Start: 09-19-2020 End: 09-19-2020 Emergency department patient visit [facility] Comment on above: Closed head injury, initial encounter (Primary Dx) Start: 07-15-2017 End: 07-18-2017 Ambulatory DAVID BECERRIL [facility] Start: 05-15-2017 End: 05-15-2017 Ambulatory DAVID BECERRIL [facility] Start: 04-30-2017 End: 04-30-2017 Ambulatory DAVID BECERRIL [facility] Start: 04-29-2017 End: 04-30-2017 Ambulatory DAVID Sandeep BECERRIL [facility] Start: 03-13-2017 End: 03-14-2017 Ambulatory BLANCAWu PABLO Facility:[facility] Procedures Date Procedure Procedure Detail Performing Clinician Start: 12-26-2024 US OB GROWTH Generic External Data Provider Start: 12-26-2024 US OB BPP W NON-STRESS Generic Ext ernal Data Provider Start: 12-26-2024 ALL THYROID STIM HORMONE Doc William DO Work Phone: Start: 12-23-2024 Urnls dip stick/tablet rgnt non-auto w/o micrscp Luna Steen DESKTOP SUPPORT ENGINEER Work Phone: Start: 12-09-2024 Urnls dip stick/tablet rgnt non-auto w/o micrscp Doc William DO Work Phone: Start: 11-25-2024 Urnls dip stick/tablet rgnt non-auto w/o micrscp Luna Steen DESKTOP SUPPORT ENGINEER Work Phone: Start: 11-24-2024 CA ECHO DOPPLER COMPLETE Generic Externa l Data Provider Start: 11-12-2024 ECG 12-LEAD Generic External Data Provider Start: 11-03-2024 ALL CBC WITH AUTO DIFF Luna Steen DESKTOP SUPPORT ENGINEER Work Phone: Start: 10-28-2024 RECURRENT VAGINITIS (HTRX) Luna patel DESKTOP SUPPORT ENGINEER Work Phone: Start: 10-28-2024 Urnls dip stick/tablet rgnt non-auto w/o micrscp Luna Steen DESKTOP SUPPORT ENGINEER Work Phone: Start: 10-28-2024 IGP,APTIMA HPV,AGE GDLN Pretty ARELLANO Work Phone: Start: 10-06-2024 US OB CERVICAL LENGTH Doc William DO Work Phone: Start: 09-30-2024 Urnls dip stick/tablet rgnt non-auto w/o micrscp Doc William DO Work Phone: Start: 09-28-2024 ALL THYROID STIM HORMONE Doc William DO Work Phone: Start: 09-02-2024 Urnls dip stick/tablet rgnt non-auto w/o micrscp Pretty Dm ADAN Work Phone: Start: 08-31-2024 ALL THYROID STIM [...] Work Phone: Cyst of ovary (disorder) Shayan mariposa Pocos History of operative procedure on knee S/P reconstruction of ACL of left knee using bone-patellar tendon-bone autograft Myron Marroquin DO Work Phone: History of reconstru ction of anterior cruciate ligament tear Status post arthroscopic reconstruction of anterior cruciate ligament of left knee using quadriceps tendon autograft Pepe [employer] PT Work Phone: History of reconstru ction of anterior cruciate ligament tear Status post arthroscopic reconstruction of anterior cruciate ligament of left knee using quadriceps tendon autograft Nereyda Vieira ASSOCIATE FINANCIAL ADVISOR Work Phone: History of reconstru ction of anterior cruciate ligament tear Status post arthroscopic reconstruction of anterior cruciate ligament of left knee using quadriceps tendon autograft Pepe [employer] PT Work Phone: History of reconstru ction of anterior cruciate ligament tear Status post arthroscopic reconstruction of anterior cruciate ligament of left knee using quadriceps tendon autograft Nereyda Vieira ASSOCIATE FINANCIAL ADVISOR Work Phone: History of reconstru ction of anterior cruciate ligament tear Status post arthroscopic reconstruction of anterior cruciate ligament of left knee using quadriceps tendon autograft Nereyda Vieira ASSOCIATE FINANCIAL ADVISOR Work Phone: History of reconstru ction of anterior cruciate ligament tear Status post arthroscopic reconstruction of anterior cruciate ligament of left knee using quadriceps tendon autograft Jennifer Dozier ASSOCIATE FINANCIAL ADVISOR Laparoscopic excisio n of cyst of left ovary Myron Marroquin Plan of Treatment Date Care Activity Detail Author Start: 09-14-2025 Influenza vaccination Influenza Vacc ine (#1) [facility] Comment on above: Postponed from 11/16 (Patient Refused) Start: 01-05-2025 End: 01-05-2025 Patient encounter procedure 01/05/2025 1:00 PM EDT Routine [facility] [address] [place] [address] Doc Thomas, DO [address] [address] [facility] Start: 12-23-2024 End: 12-23-2024 Patient encounter procedure [facility] Comment on above: Arrived Start: 12-23-2024 End: 12-23-2024 Professional / ancillary services management 12/23/2024 1:30 PM EDT Ancillary Procedure [facility] [address] [place] [address] [facility] Start: 12-09-2024 End: 12-09-2024 Patient encounter procedure [facility] Comment on above: Arrived Start: 11-25-2024 End: 05-25-2025 US biophysical profile w non stress test US biophysical profile w non stress test 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/2024 (Approximate), Expires: 05/25/2025 [facility] Work Phone: Comment on above: Expected: 11/25/2024 (Approximate), Expires: 05/25/2025 Start: 11-25-2024 End: 03-27-2025 US for US OB follow up transabdominal approach 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/2024, Expires: 03/27/2025 [facility] Comment on above: Expected: 11/25/2024 , Expires: 03/27/2025 Start: 11-25-2024 End: 11-25-2024 Patient encounter procedure [facility] Comment on above: Arrived Start: 11-16-2024 Influenza vaccination [facility] Start: 10-28-2024 End: 10-28-2024 Patient encounter [...] mellitus screening Expected: 10/28/2024 (Approximate), Expires: 10/28/2025 [facility] Work Phone: Comment on above: Expected: 10/28/2024 (Approximate), Expires: 10/28/2025 Start: 10-28-2024 End: 10-28-2026 Echocardiogram 2D complete Echocardiogram 2D complete Echocardiography Routine Heart palpitations Expected: 10/28/2024 (Approximate), Expires: 10/28/2026 [facility] Comment on above: Expected: 10/28/2024 (Approximate), Expires: 10/28/2026 Start: 10-28-2024 End: 10-28-2025 Measurement of glucose 1 hour after glucose challenge for glucose tolerance test Glucose tolerance, 1 hour Lab Routine Diabetes mellitus screening Expected: 10/28/2024 (Approximate), Expires: 10/28/2025 [facility] Comment on above: Expected: 10/28/2024 (Approximate), Expires: 10/28/2025 Start: 09-30-2024 End: 09-30-2024 Patient encounter procedure 09/30/2024 3:40 PM EDT Routine [facility] [address] [place] [phone] Doc Thomas, DO [address] [place] [address] [facility] Start: 09-30-2024 End: 09-30-2024 Professional / ancillary services management 09/30/2024 2:30 PM EDT Ancillary Procedure [facility] [address] [place] [phone] [facility] Start: 09-02-2024 End: 09-02-2024 Patient encounter procedure [facility] Comment on above: Arrived Start: 09-02-2024 End: 11-02-2024 Alpha fetoprotein, maternal Alpha fetoprotein, maternal Lab Routine Second trimester ([facility]) Expected: 09/02/2024 (Approximate), Expires: 11/02/2024 [facility] Comment on above: Expected: 09/02/2024 (Approximate), Expires: 11/02/2024 Start: 09-02-2024 End: 12-03-2024 US for US OB 14+ weeks anatomy scan Imaging Routine Screening, , for anatomic survey ([facility]) Expected: 09/02/2024, Expires: 12/03/2024 [facility] Work Phone: Comment on above: Expected: 09/02/2024 , Expires: 12/03/2024 Start: 08-05-2024 End: 08-05-2024 Patient encounter procedure [facility] Comment on above: Arrived Start: 07-16-2024 End: 07-16-2025 ABO/Rh ABO/Rh Lab Routine Missed menses , unspecified gestational age Expected: 07/16/2024 (Approximate), Expires: 07/16/2025 [facility] Comment on above: Expected: 07/16/2024 (Approximate), Expires: 07/16/2025 Start: 07-16-2024 End: 07-16-2025 Blood type and Indirect antibody screen panel - Blood Type and screen Lab Routine Missed menses , unspecified gestational age Expected: 07/16/2024 (Approximate), Expires: 07/16/2025 [facility] Comment on above: Expected: 07/16/2024 (Approximate), Expires: 07/16/2025 Start: 07-16-2024 End: 07-16-2025 Drugs of abuse panel - Urine by Screen method Rapid drug screen, urine Lab Routine , unspecified gestational age Encounter for supervision of normal first in first trimester Expected: 07/16/2024 (Approximate), Expires: 07/16/2025 [facility] Comment on above: Expected: 07/16/2024 (Approximate), Expires: 07/16/2025 Start: 07-10-2024 End: 10-09-2024 US Pelvis transvaginal US OB transvaginal Imaging Routine Missed menses Expected: 07/10/2024, Expires: 10/09/2024 [facility] Work Phone: Comment on above: Expected: 07/10/2024 , Expires: 10/09/2024 Start: 02-21-2024 End: 02-21-2024 Patient encounter procedure 02/21/2024 8:00 AM EST Office Visit [facility] [address] [place] [place] [phone] Myron Marroquin, [address] [address] [facility] Start: 02-19-2024 End: 02-19-2024 Patient encounter procedure 02/19/2024 3:30 PM EST Office Visit [facility] [address] [place] [address] [place] [address] Rosalie Payne MD [address] [facility] [address] [place] [address] 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CMS/HCC); Chronic fatigue; Cigarette smoker; [...] EDT Treatment [facility] [address] [place] [phone] Pepe Kirby, PT [address] [place] [address] [facility] Start: 01-14-2024 End: 01-14-2024 ambulatory 01/14/2024 3:30 PM EDT Treatment [facility] [address] [place] [phone] Nereyda Vieira, ASSOCIATE FINANCIAL ADVISOR [address] [place] [address] [facility] Start: 01-10-2024 End: 01-10-2024 ambulatory 01/10/2024 2:30 PM EDT Treatment [facility] [address] [place] [phone] Pepe Kirby, PT [address] [place] [address] [facility] Start: 01-07-2024 End: 01-07-2024 ambulatory 01/07/2024 3:30 PM EDT Treatment [facility] [address] [place] [phone] Pepe Kirby, PT [address] [place] [address] [facility] Start: 01-03-2024 End: 01-03-2024 ambulatory 01/03/2024 2:30 PM EDT Treatment [facility] [address] [place] [phone] Pepe Kirby, PT [address] [place] [address] [facility] Start: 12-31-2023 End: 12-31-2023 ambulatory 12/31/2023 3:30 PM EDT Treatment [facility] [address] [place] [phone] Jennifer Dozier, EUGENE [facility] Start: 12-27-2023 End: 12-27-2023 ambulatory [facility] Comment on above: Arrived Start: 12-24-2023 End: 12-24-2023 ambulatory 12/24/2023 3:00 PM EDT Treatment [facility] [address] [place] [phone] Dariel Nereyda, ASSOCIATE FINANCIAL ADVISOR [address] [place] [address] [facility] Start: 12-17-2023 End: 12-17-2023 ambulatory 12/17/2023 3:00 PM EDT Treatment [facility] [address] [place] [phone] Pepe Kirby, PT [address] [place] [address] [facility] Start: 12-09-2023 End: 12-09-2023 Patient encounter procedure [facility] Comment on above: Arrived Start: 12-03-2023 End: 12-03-2023 ambulatory 12/03/2023 3:30 PM EDT Treatment [facility] [address] [place] [phone] Nereyda Vieira, ASSOCIATE FINANCIAL ADVISOR [address] [place] [address] Arrived [facility] Comment on above: Arrived Start: 11-19-2023 End: 11-19-2023 ambulatory [facility] Comment on above: Acute pain of left k nee (Primary Dx); Status post arthroscopic reconstruction of anterior cruciate ligament of left knee using quadriceps tendon autograft Start: 11-17-2023 Influenza vaccination Influenza Vacc ine (#1) [facility] Start: 09-02-2023 [facility] Start: 05-07-2023 End: 05-07-2023 Patient encounter procedure 05/07/2023 11:10 AM EST Office Visit [facility] [address] [place] [phone] Doc Thomas DO [address] [facility] [address] [facility] Start: 05-03-2023 End: 05-03-2023 Patient encounter procedure 05/03/2023 11:00 AM EST [facility] [address] [facility] [address] [place] [address] Myron Marroquin, DO [address] [place] [address] [facility] Start: 04-23-2023 End: 04-23-2023 Patient encounter procedure 04/23/2023 8:00 AM EST Procedure Visit [facility] Myron Washburn, DO [address] [place] [address] [facility] Start: 04-22-2023 End: 04-22-2023 ambulatory 04/22/2023 2:30 PM EST Evaluation [facility] [address] [place] [phone] Pepe Kirby, PT [address] [place] [address] [facility] Start: 11-16-2022 Influenza vaccination Influenza Vacc ine (#1) [facility] Start: 08-30-2021 DTaP/Tdap/Td vaccine (5 - Td or Tdap) DTaP/Tdap/Td vaccine (5 - Td or Tdap) [facility] Start: 11-16-2020 Influenza vaccination Flu vaccine (# 1) [facility] Start: 06-09-2020 Screening for malign ant neoplasm of cervix [facility] Start: 06-09-2018 DTaP/Tdap/Td vaccine (1 - Tdap) DTaP/Tdap/Td vaccine (1 - Tdap) [facility] Work Phone: Start: 2015 Screening for Chlamy jasper trachomatis Chlamydia screen [facility] Start: 06-09-2014 HIV screening HIV screen [facility] Start: 11-23-2011 Varicella vaccine (2 of 2 - 2-dose childhood series) Varicella vaccine (2 of 2 - 2-dose childhood series) [facility] Start: 2011 COVID-19 Vaccine (1) COVID-19 Vaccin e (1) [facility] Work Phone: Start: 2011 Depression Screen Depression Screen [facility] Start: 06-09-2010 HPV vaccine (1 - 2-d ose series) HPV vaccine (1 - 2-dose series) [facility] Start: 06-09-2004 COVID-19 Vaccine (1) COVID-19 Vaccin e (1) [facility] Start: 06-09-2000 Varicella vaccine (1 of 2 - 2-dose childhood series) Varicella vaccine (1 of 2 - 2-dose childhood series) [facility] Phone: Start: 1999 Hepatitis C screening Hepatitis C sc reen [facility] Bacteria identified in Urine by Culture Urine culture Microbiology Routine Missed menses Ordered: 07/16/2024 [facility] Comment on above: Ordered: 07/16/2024 CBC W Auto Different ial panel - Blood CBC and differential Lab Routine Missed menses , unspecified gestational age Ordered: 07/16/2024 [facility] Comment on above: Ordered: 07/16/2024 CHLAMYDIA TRACHOMATI S (GENITO/STI) CHLAMYDIA TRACHOMATIS (GENITO/STI) Lab Routine STD exposure Ordered: 10/28/2024 [facility] Comment on above: Ordered: 10/28/2024 Cytology Cervical or vaginal smear or scraping study Pap Smear Pathology and Cytology Routine Well woman exam with routine gynecological exam Ordered: 10/28/2024 [facility] Comment on above: Ordered: 10/28/2024 Hemoglobin A1c/Hemoglobin.total in Blood Hemoglobin A1c Lab Routine Missed menses , unspecified gestational age Ordered: 07/16/2024 [facility] Comment on above: Ordered: 07/16/2024 Hepatitis B virus surface Ag [Presence] in Serum or Plasma by Immunoassay Hepatitis B surface antigen Lab Routine Missed menses , unspecified gestational age Ordered: 07/16/2024 [facility] Comment on above: Ordered: 07/16/2024 Hepatitis C virus Ab [Presence] in Serum or Plasma by Immunoassay Hepatitis C antibody Lab Routine Missed menses , unspecified gestational age Ordered: 07/16/2024 [facility] Comment on above: Ordered: 07/16/2024 HIV-1/HIV-2 antigen/antibody combination immunoassay HIV-1 and HIV-2 antibodies Lab Routine Missed menses , unspecified gestational age Ordered: 07/16/2024 [facility] Comment on above: Ordered: 07/16/2024 Neisseria gonorrhoea e DNA [Presence] in Unspecified specimen by QUEENIE with probe detection Neisseria gonorrhea DNA probe, direct Lab Routine STD exposure Ordered: 10/28/2024 [facility] Comment on above: Ordered: 10/28/2024 Patient Education Hiatal hernia Hemorrhoids Gastritis Know your [facility] Work Phone: Reagin Ab [Presence] in Serum by RPR RPR Lab Routine Missed menses , unspecified gestational age Ordered: 07/16/2024 [facility] Comment on above: Ordered: 07/16/2024 Rubella antibody, IgG Rubella an tibody, IgG Lab Routine Missed menses , unspecified gestational age Ordered: 07/16/2024 [facility] Comment on above: Ordered: 07/16/2024 SURESWAB(R) ADVANCED VAGINITIS PLUS, TMA SURESWAB(R) ADVANCED VAGINITIS PLUS, TMA Pathology and Cytology Routine STD exposure Ordered: 10/28/2024 [facility] Comment on above: Ordered: 10/28/2024 End: 08-05-2025 Thyrotropin [Units/volume] in Serum or Plasma TSH Lab Routine 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CMS/HCC) [id number] for 6 Occurrences starting 08/05/2024 until 08/05/2025 [facility] Work Phone: Comment on above: [id number] for 6 Occurr ences starting 08/05/2024 until 08/05/2025 US Pelvis transvaginal US OB tra nsvaginal Imaging Routine Missed menses 07/16/2024 1:59 PM EDT [facility] Immunizations Immunization Date Immunization Notes Care Provider Zenon will 11-12-2016 hepatitis B vaccine, adult dosage Pepe Kirby PT Work Phone: [facility] 11-12-2016 meningococcal oligosaccharide (groups A, C, Y and W-135) diphtheria toxoid conjugate vaccine (MCV4O) Pepe Kirby PT Work Phone: [facility] 03-31-2012 hepatitis A vaccine, pediatric/adolescent dosage, 2 dose schedule Pepe Kirby PT Work Phone: [facility] 08-31-2011 hepatitis A vaccine, pediatric/adolescent dosage, 2 dose schedule Pepe Kirby PT Work Phone: [facility] 08-31-2011 tetanus toxoid, redu leyla diphtheria toxoid, and acellular pertussis vaccine, adsorbed Pepe Kirby PT Work Phone: [facility] 08-31-2011 varicella virus vaccine Pepe Kirby PT Work Phone: [facility] 09-11-2000 haemophilus influenz ae type b conjugate and Hepatitis B vaccine Pepe Kirby PT Work Phone: [facility] 09-11-2000 haemophilus influenz ae type b vaccine, HbOC conjugate Pepe Kirby PT Work Phone: [facility] 09-11-2000 hepatitis B vaccine, pediatric or pediatric/adolescent dosage Pepe Kirby PT Work Phone: [facility] 09-11-2000 measles, mumps and r ubella virus vaccine Pepe Kirby PT Work Phone: [facility] 09-11-2000 poliovirus vaccine, inactivated Pepe Kirby PT Work Phone: [facility] 03-26-2000 DTaP-Haemophilus influenzae type b conjugate vaccine Pepe Kirby PT Work Phone: [facility] 03-26-2000 pneumococcal conjuga te vaccine, 7 valent Pepe Kirby PT Work Phone: [facility] 1999 diphtheria, tetanus toxoids and acellular pertussis vaccine, Haemophilus influenzae type b conjugate, and poliovirus vaccine, inactivated ([id number]-ZAT) Pepe Kirby PT Work Phone: [facility] 1999 diphtheria, tetanus toxoids and acellular pertussis vaccine, Haemophilus influenzae type b conjugate, and poliovirus vaccine, inactivated (OHsX-Avt-XSF) Pepe Kirby PT Work Phone: [facility] 1999 hepatitis B vaccine, pediatric or pediatric/adolescent dosage Pepe Kirby PT Work Phone: [facility] 1999 hepatitis B vaccine, pediatric or pediatric/adolescent dosage Pepe Kirby PT Work Phone: [facility] Payers Date Payer Category Payer Self-pay 2023 Unknown [id number] 2022 Unknown [id number] 2022 Blue Cross Blue Shield 1.2.8 [id number] 2022 Unknown [id number] 2020 Unknown [id number] 2006 Private Health Insurance [id number] 1999 Unknown [id number] 2.16.8 40.1.477263.3.579.2.173 1999 Unknown [id number] 2.16.8 40.1.832980.3.579.2.173 1999 Unknown [id number] 2.16.8 40.1.687876.3.579.2.173 1999 Unknown [id number] 2.16.84 0.1.552506.3.579.2.593 1999 Unknown [id number] 2.16.84 0.1.956389.3.579.2.593 1999 Unknown [id number] 2.16.8 40.1.651192.3.579.2.727 1999 Unknown [id number] 2.16.8 40.1.811353.3.579.2.727 1999 Unknown [id number] 2.16.8 40.1.636971.3.579.2.9 1999 Unknown [id number] 2.16.8 40.1.741117.3.579.2.9 1999 Unknown [id number] 2.16.8 40.1.202023.3.579.2.9 1999 Unknown [id number] 2.16.8 40.1.089919.3.579.2.9 1999 Unknown [id number] 2.16.8 40.1.211234.3.579.2.1258 1999 Unknown [id number] 2.16.8 40.1.732459.3.579.2.1258 1999 Unknown [id number] 2.16.8 40.1.724595.3.579.2.1258 1999 Unknown [id number] 2.16.84 0.1.503083.3.579.2.1259 1999 Unknown [id number] 2.16.84 0.1.724130.3.579.2.9 1999 Unknown [id number] 2.16.84 0.1.629553.3.579.2.9 1999 Unknown [id number] 2.16.84 0.1.531810.3.579.2.9 1999 Unknown [id number] 2.16.84 0.1.924300.3.579.2.9 1999 Unknown [id number] 2.16.84 0.1.789443.3.579.2.1259 1959 Unknown [id number] 2.1 [id number] 1959 Unknown [id number] Blue Cross Blue Shield GTFAN [id number] [id number] Unknown [id number] 2.16.8 40.1.478905.3.579.2.531 Social History Date Type Detail Facility Start: 09-19-2020 End: 12-14-2020 Tobacco smoking status VTIS Never smoker [facility] Phone: Start: 09-19-2020 End: 05-10-2023 Tobacco use and exposure Never used [facility] Start: 1999 Sex Assigned At Not on file [facility] Phone: Exposure to SARS-CoV -2 (event) Not sure [facility] Start: 12-14-2020 End: 05-24-2021 Alcohol intake Current drinker of alcohol (finding) [facility] Phone: Start: 12-14-2020 Alcohol Comment Rare [facility] Phone: Start: 12-11-2022 End: 02-26-2024 Sex Assigned At [facility] Tobacco Current vaping o r e-cigarette use Smokeless Tobacco Use:. Vaping [facility] Tobacco smoking status No Smokin g Status Entered [facility] Start: 02-09-2023 End: 05-10-2023 Tobacco smoking status [facility] Occasional tobacco smoker [facility] Start: 04-15-2023 End: 12-23-2024 Alcohol intake Ex-drinker (finding) [facility] Start: 12-11-2022 End: 02-26-2024 History [...] 09-02-2023 Tobacco smoking status NHIS Smoker (finding) [facility] History of tobacco use Cigarette Smoker [facility] Start: 05-30-2024 [facility] Goals Date Patient Goal Desired Activity /State Functional Status Date Assessment Result Facility 04-03-2023 Functional Status No [facility] Clinical Notes 04-07-2021 to 12-23-2024 Luna Steen [...] nursing note reviewed. Exam conducted with a electronics commodity manager present. Vitals: Estimated body mass index is 29.42 kg/m as calculated from the following: Height as of 02/26/24: 5' 4 . Weight as of this encounter: 171 lb 6.4 oz. BP: 110/70 Patient's last menstrual period was 05/16/2024. ASSESSMENT & PLAN ICD-10-CM 1. Third trimester ([facility]) Z34.93 2. 31 weeks gestation of ([facility]) Z3A.31 POCT urinalysis dipstick manually resulted [...] Luna Steen NP documented in this encounter [facility] 12-09-2024 History of Present illness Narrative Reason [...] Left 2019 OVARIAN CYST REMOVAL Left 05/20/2020 [facility] William VAGINAL DELIVERY REVIEW OF SYSTEMS [...] nursing note reviewed. Exam conducted with a electronics commodity manager present. Vitals: Estimated body mass index is 28.84 kg/m as calculated from the following: Height as of 02/26/24: 5' 4 . Weight as of this encounter: 168 lb. BP: 110/74 Patient's last menstrual period was 05/16/2024. ASSESSMENT & PLAN ICD-10-CM 1. Third trimester ([facility]) Z34.93 POCT urinalysis dipstick manually resulted 2. 29 weeks gestation of ([facility]) Z3A.29 Return OB: Patient presents today for [...] Doc Thomas DO documented in this encounter [facility] 11-27-2024 Note [facility] Note Reason for cardiology consult: Cardiogenic syncope Chief Complaint: Syncope HPI: summer Matthew is a 24 y.o. female with history of neurocardiogenic syncope diagnosed about 6 years ago, Gabby disease, chronic fatigue, overweight, anxiety/depression Patient is now 28 weeks . She reports that she was diagnosed with neurocardiogenic syncope about 6 years ago by [facility] cardiology and she was on medications. Around [...] , Rfl: no.[id number]/i (more content not included)... [facility] 11-25-2024 History of Present illness Narrative [...] Left 2019 OVARIAN CYST REMOVAL Left 05/20/2020 [facility] William VAGINAL DELIVERY REVIEW OF SYSTEMS [...] nursing note reviewed. Exam conducted with a electronics commodity manager present. Vitals: Estimated body mass index is 29.95 kg/m as calculated from the following: Height as of 24: 5' 4 . Weight as of this encounter: 174 lb 8 oz. BP: 110/60 Patient's last menstrual period was 05/16/2024. ASSESSMENT & PLAN ICD-10-CM 1. Second trimester ([facility]) Z34.92 POCT urinalysis dipstick manually resulted 2. 27 weeks gestation of ([facility]) Z3A.27 3. 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 Exam conducted with a electronics commodity manager present. Vitals: Estimated body mass index is 28.49 kg/m as calculated from the following: Height as of 02/26/24: 5' 4 . Weight as of this encounter: 166 lb. BP: 130/80 Patient's last menstrual period was 05/16/2024. ASSESSMENT & PLAN ICD-10-CM 1. Second trimester ([facility]) Z34.92 POCT urinalysis dipstick manually resulted 2. 23 weeks gestation of ([facility]) Z3A.23 3. Diabetes mellitus screening Z13.1 [...] and prior work up for palpitations with [facility]. Plan will be to continue TSH every 4 weeks, EKG and cardiac Echo and follow up with [facility] and a referral will be made she declined Metoprolol at this time. Patient is to return to office in 4 week for routine OB appointment. Documented by Luna Steen NP on behalf of: Luna Steen NP documented in this encounter [facility] 09-30-2024 History of Present illness Narrative [...] Left 2019 OVARIAN CYST REMOVAL Left 05/20/2020 [facility] William VAGINAL DELIVERY REVIEW OF SYSTEMS [...] nursing note reviewed. Exam conducted with a electronics commodity manager present. Vitals: Estimated body mass index is 28.29 kg/m as calculated from the following: Height as of 24: 5' 4 . Weight as of this encounter: 164 lb 12.8 oz. BP: 110/72 Patient's last menstrual period was 05/16/2024. ASSESSMENT & PLAN ICD-10-CM 1. 19 weeks gestation of ([facility]) Z3A.19 POCT urinalysis dipstick manually resulted 2. Second trimester ([facility]) Z34.92 POCT urinalysis dipstick manually resulted [...] Doc Thomas DO documented in this encounter [facility] 09-02-2024 History of Present illness Narrative [...] Procedure Laterality Date ANTERIOR CRUCIATE LIGAMENT REPAIR 2/6/24 COLONOSCOPY 2023 EGD 2023 OVARIAN CYST REMOVAL Left 2019 OVARIAN CYST REMOVAL Left 05/20/2020 [facility] William VAGINAL DELIVERY REVIEW OF SYSTEMS [...] nursing note reviewed. Exam conducted with a electronics commodity manager present. Vitals: Estimated body mass index is 30.21 kg/m as calculated from the following: Height as of 02/26/24: 5' 4 . Weight as of 08/05/24: 176 lb. BP: Patient's last menstrual period was 05/16/2024. ASSESSMENT & PLAN ICD-10-CM 1. Second trimester ([facility]) Z34.92 Alpha fetoprotein, maternal Alpha fetoprotein, maternal POCT urinalysis dipstick manually resulted 2. 15 weeks gestation of ([facility]) Z3A.15 3. Screening, , for anatomic survey ([facility]) Z36.89 US OB 14+ weeks anatomy [...] of: ADAN Gonzalez documented in this encounter [facility] 08-05-2024 History of Present illness Narrative [...] Left 2019 OVARIAN CYST REMOVAL Left 05/20/2020 [facility] William VAGINAL DELIVERY REVIEW OF SYSTEMS [...] nursing note reviewed. Exam conducted with a electronics commodity manager present. Vitals: Estimated body mass index is [...] undercooked meat, and stay away from [facility]. Patient has been consulted regarding any [...] Doc Thomas DO documented in this encounter [facility] 07-16-2024 History of Present illness Narrative [...] undercooked meat, and stay away from [facility]. Patient has also been advised to [...] Aliya Aguilar LPN documented in this encounter [facility] 02-26-2024 History of Present illness Narrative [...] Left 2019 OVARIAN CYST REMOVAL Left 05/20/2020 [facility] William VAGINAL DELIVERY FAMILY HISTORY: Family [...] 7:42 AM EST documented in this encounter [facility] 02-19-2024 History of Present illness Narrative [...] Iron and TIBC documented in this encounter [facility] 12-27-2023 History of Present illness Narrative [...] at this time. documented in this encounter [facility] 12-17-2023 History of Present illness Narrative [...] Continue as tolerated. documented in this encounter [facility] 12-09-2023 History of Present illness Narrative Images from the original note were not included. @ENCDATE@ [facility] Matthew is a 23 y.o. [...] Left 2019 OVARIAN CYST REMOVAL Left 05/20/2020 [facility] William VAGINAL DELIVERY FAMILY HISTORY: Family [...] harvest. Joint spaces preserved. MRI left knee [facility] 10/18/2023 report and images reviewed. ACL [...] note was created using voice recognition through [employer] artificial intelligence. documented in this encounter [facility] 09-02-2023 Procedure note [facility] 09-02-2023 History and physical note Note Date/Time September 02, 2023 11:40am [facility] [address] [place] [address] Gastroenterology H&P Signed Patient: Aleta Castro MR#: [id number] : 2000 Acct:[id number] Age/Sex: 23 / F Adm Date: 4 Loc: Room: Type: [facility] Attending Dr: Marcelle Patel DO Copies [...] signed by Marcelle Patel DO> 09/02/23 1140 [facility] Work Phone: 1(444) 804-154006-17-2024 [facility] [id number]* Encounter Date Diagnosis Assessment Notes [...] follow up with PCP if symptoms persist. [facility] 06-06-2022 Evaluation note* Encounter Date Diagnosis [...] or concerns Aug, Bronchitis (ICD-10 - J40) [facility] 03-09-2022 Hospital Discharge instructions* Instructions* Artis [...] be sent through Care Everywhere. * Contusion ([place]) * Knee Pain or Injury ([place]) * RICE: General Info ([place]) [facility] Phone: 1(880) 358-764402-24-2022 Evaluation note* Encounter Date Diagnosis Assessment Notes Treatment Notes Treatment Clinical Notes Apr, Oral thrush (ICD-10 - B37.0) Use medication as directed. Change toothbrush. Follow up with PCP if symptoms do not improve with treatment [facility] Other 02-14-2022 Evaluation note* Encounter Date Diagnosis [...] Patient care instructions given in writting by [facility] document. [facility] Other 01-21-2022 Evaluation note* Encounter Date Diagnosis [...] Patient care instructions given in writting by [facility] document. [facility] Other Evaluation + Plan note Future Appointments Appointment Date:04/23/2023 07:30:00 AM Scheduled Provider: [facility] Diagnosis Closed head injury, initial encounter- Primary documented in this encounter [facility] Phone: [email or web address] note* Diagnosis Tailbone injury, initial encounter- Primary documented in this encounter [facility] Phone: [email or web address] note* Diagnosis Contusion of left knee, initial encounter- Primary documented in this encounter [facility] Phone: [email or web address] note* Diagnosis Onset Date Resolution Status Diarrhea acute GERD (gastroesophageal reflux disease) acute Lower abdominal pain acute Nausea acute [facility] Work Phone: Evaluation note* Diagnosis Onset Date Resolution Status Diarrhea acute Dysphagia acute GERD (gastroesophageal reflux disease) acute Lower abdominal pain acute Nausea acute [facility] Work Phone: Evaluation note* Diagnosis Acute pain of left knee- Primary Status post arthroscopic reconstruction of anterior cruciate ligament of left knee using quadriceps tendon autograft [facility] Diagnosis Acute pain of left knee- Primary Status post arthroscopic reconstruction of anterior cruciate ligament of left knee using quadriceps tendon autograft [facility] Diagnosis Acute pain of left knee- Primary Status post arthroscopic reconstruction of anterior cruciate ligament of left knee using quadriceps tendon autograft [facility] Diagnosis Subclinical hypothyroidism (CMS/HCC)- Primary Other specified acquired hypothyroidism 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CMS/HCC) Chronic lymphocytic thyroiditis Cigarette smoker Tobacco use disorder Non morbid obesity due to excess calories Postural orthostatic tachycardia syndrome (POTS) Abnormal bleeding in menstrual cycle documented in this encounter [facility]* Diagnosis S/P reconstruction of ACL of left knee using bone-patellar tendon-bone autograft- Primary [facility] Diagnosis Left knee injury, initial encounter- Primary [facility]* Diagnosis Missed menses , unspecified gestational age Encounter for supervision of normal first in first trimester Nausea/vomiting in Unspecified vomiting of , unspecified as to episode of care Cluster headache, not intractable, unspecified chronicity pattern [facility]* Diagnosis First trimester state, incidental 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[facility]/HCC) Chronic lymphocytic thyroiditis [facility]* Diagnosis Second trimester (HHS-HCC) state, incidental 15 weeks gestation of (HHS-HCC) Screening, , for anatomic survey ([facility]) Encounter for anatomic survey documented in [...] (HHS-HCC) state, incidental 27 weeks gestation of (HHS-HCC) Gabby's disease Chronic lymphocytic thyroiditis [facility]* Diagnosis Third trimester (HHS-HCC) state, incidental 29 weeks gestation of (HHS-HCC) Yeast infection documented [facility]* Diagnosis Third trimester (HHS-HCC) state, incidental 31 weeks gestation of (HHS-HCC) documented in [facility] encounter [facility] general Narrative - Reported* Type Description Date Medical History Hypothyroidism Medical History cardiovascular syncope Medical History chronic depression Surgical History left ovarian cyst Hospitalization History child [facility] Other Hospital course Narrative No data available for this section [facility] Attachments The following attachments cannot be sent through Care Everywhere. * Head Injury: Closed: General Info ([place]) [facility]: Hospital Discharge instructions* Attachments The following attachments cannot be sent through Care Everywhere. * Coccyx Injury ([place]) [facility] Phone: Hospital Discharge instructions No data available for this section [facility] No data available for this section [facility] Summary Purpose Family History Relationship Condition [...] section and content) DATE CREATED AUTHOR 09/05/2017 [facility] DATE CREATED AUTHOR AUTHOR'S ORGANIZ ATION 09/05/2017 [facility] DATE CREATED AUTHOR AUTHOR'S ORGANIZ ATION 10/28/2019 [facility] DATE CREATED AUTHOR AUTHOR'S ORGANIZ ATION 05/26/2021 [facility] DATE CREATED AUTHOR AUTHOR'S ORGANIZ ATION 05/10/2022 [facility] DATE CREATED AUTHOR AUTHOR'S ORGANIZ ATION 07/24/2022 [facility] DATE CREATED AUTHOR AUTHOR'S ORGANIZ ATION 05/15/2023 [facility] DATE CREATED AUTHOR AUTHOR'S ORGANIZ ATION 09/11/2023 [facility] DATE CREATED AUTHOR AUTHOR'S ORGANIZ ATION 02/08/2024 [facility] DATE CREATED AUTHOR AUTHOR'S ORGANIZ ATION 11/30/2024 [facility] DATE CREATED AUTHOR AUTHOR'S ORGANIZ ATION 12/26/2024 [facility] EPIC Reason for Visit (unrecogniz ed section and content) Reason Comments Head Injury headbutted repeated 10 times today around 1255 Headache Nausea Reason Comments Other Pt had a chair pulle d out from under her while at work. Pt fell onto hard ground. Pain in lower back. Reason Comments Knee Pain left knee, was kicke d by resident at [facility] at approx 1930 Specialty Diagnoses / Procedures Referred By Neo t Referred To Contact Physical Therapy Diagnoses Other specified postprocedural states Personal history of other diseases of the musculoskeletal system and connective tissue Procedures AL THERAPEUTIC PX 1/ AREAS EACH 15 MIN EXERCISES Myron Marroquin, DO [address] [place], [place] Pepe Kirby, PT [address] [place] [address] Referral ID Status Reason Start Date Expiration Date V isits Requested Visits Authorized [id number] Authorized 09/10/2023 03/08/2024 99 99 Reason Comments [...] at 0251, Do not crush or chew. 025 (Given - Provid er: Jen Syed RN) Scheduled Medication Order 05/22/2021 05/23/2021 05/24/2021 naproxen sodium (ANAPROX) tablet 550 mg (COMPLETED) 550 mg, Oral, ONCE, On Sat05/24/21 at 2045, For 1 dose 2052 (Given - Provid er: Angelica Estridge, RN) Ordered Prescriptions (unrec ognized section and [...] Care Teams (unrecognized sec tion and content) Information Clerk Brokerage Relationship Specialty Start Date End Date Rosalie Payne MD [address] [place] [address] PCP - General 05/24/21 Information Clerk Brokerage Relationship Specialty Start Date End Date Rosalie Payne MD [address] [place] [address] PCP - General Family Medicine 07/24/22 Team [...] Other Provider Active Start: September 02, 2023 Information Clerk Brokerage Relationship Specialty Start Date End Date Rosalie Payne MD [address] [place] [address] (Fax) PCP - General Family Medicine 07/24/22 Information Clerk Brokerage Relationship Specialty Start Date End Date Rosalie Payne MD [address] [place] [address] (Fax) PCP - General Family Medicine 07/24/22 Information Clerk Brokerage Relationship Specialty Start Date End Date Rosalie Payne MD [address] [facility] [place] [address] (Fax) PCP - General Family Medicine 07/24/22 Information Clerk Brokerage Relationship Specialty Start Date End Date Rosalie Payne MD [address] [facility] [place] [address] (Fax) PCP - General Family Medicine 07/24/22 Information Clerk Brokerage Relationship Specialty Start Date End Date Rosalie Payne MD [address] [place] [phone] (Fax) PCP - General Family Medicine 07/24/22 Information Clerk Brokerage Relationship Specialty Start Date End Date Rosalie Payne MD [address] [facility] [place] [address] (Fax) PCP - General Family Medicine 07/24/22 Information Clerk Brokerage Relationship Specialty Start Date End Date Rosalie Payne MD [address] [place] [address] (Fax) PCP - General Family Medicine 07/24/22 Information Clerk Brokerage Relationship Specialty Start Date End Date Rosalie Payne MD [address] [place] [address] (Fax) PCP - General Family Medicine 07/24/22 Information Clerk Brokerage Relationship Specialty Start Date End Date Rosalie Payne MD [address] [facility] [place] [address] (Fax) PCP - General Family Medicine 07/24/22 Information Clerk Brokerage Relationship Specialty Start Date End Date Rosalie Payne MD [address] [facility] [place] [address] (Fax) PCP - General Family Medicine 07/24/22 Information Clerk Brokerage Relationship Specialty Start Date End Date Rosalie Payne MD [address] [place] [address] (Fax) PCP - General Family Medicine 07/24/22 Information Clerk Brokerage Relationship Specialty Start Date End Date Rosalie Payne MD [address] [place] [address] (Fax) PCP - General Family Medicine 07/24/22 Rosalie Payne MD [address] [place] [address] (Fax) PCP - [facility] 06/16/20 Information Clerk Brokerage Relationship Specialty Start Date End Date Rosalie Payne MD [address] [place] [address] (Fax) PCP - General Family Medicine 07/24/22 Rosalie Payne MD [address] [place] [address] (Fax) PCP - [facility] 06/16/20 Information Clerk Brokerage Relationship Specialty Start Date End Date Rosalie Payne MD [address] [place] [address] (Fax) PCP - General Family Medicine 07/24/22 Rosalie Payne MD [address] [place] [address] (Fax) PCP - [facility] 06/16/20 Information Clerk Brokerage Relationship Specialty Start Date End Date Rosalie Payne MD [address] [place] [address] (Fax) PCP - General Family Medicine 07/24/22 Rosalie Payne MD [address] [place] [address] (Fax) PCP - [facility] 06/16/20 Information Clerk Brokerage Relationship Specialty Start Date End Date Rosalie Payne MD [address] [place] [address] (Fax) PCP - General Family Medicine 07/24/22 Rosalie Payne MD [address] [place] [address] (Fax) PCP - [facility] 06/16/20 Information Clerk Brokerage Relationship Specialty Start Date End Date Roaslie Payne MD [address] [place] [address] (Fax) PCP - General Family Medicine 07/24/22 Rosalie Payne MD [address] [place] [address] (Fax) PCP - [facility] 06/16/20 Information Clerk Brokerage Relationship Specialty Start Date End Date Rosalie Payne MD [address] [place] [address] (Fax) PCP - General Family Medicine 07/24/22 Rosalie Payne MD [address] [place] [address] (Fax) PCP - [facility] 06/16/20 Information Clerk Brokerage Relationship Specialty Start Date End Date Rosalie Payne MD [address] [place] [address] (Fax) PCP - General Family Medicine 07/24/22 Rosalie Payne MD [address] [place] [address] (Fax) PCP - [facility] 06/16/20 Information Clerk Brokerage Relationship Specialty Start Date End Date Rosalie Payne MD [address] [place] [address] (Fax) PCP - General Family Medicine 07/24/22 Rosalie Payne MD [address] [place] [address] (Fax) PCP - [facility] 06/16/20 Information Clerk Brokerage Relationship Specialty Start Date End Date Rosalie Payne MD [address] [place] [address] (Fax) PCP - General Family Medicine 07/24/22 Rosalie Payne MD [address] [place] [address] (Fax) PCP - [facility] [employer] 06/16/20 Information Clerk Brokerage Relationship Specialty Start Date End Date Rosalie Payne MD [address] [place] [address] (Fax) PCP - General Family Medicine 07/24/22 Rosalie Payne MD [address] [place] [address] PCP [facility] 06/16/20 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 [employer] [facility]. provides no warranty or guarantee of the accuracy or completeness of information in this document.
[2024-12-30 15:07] VITALS: BP 110/59; PULSE 89
== END 2024-12-30 16:32 | disposition home or self-care (01) ==
LOC: FBCO 14:56 → FBC 15:03
PROVIDERS: PCP Family Medicine; Visit Provider Obstetrics & Gynecology
DX: O26.893 Other specified pregnancy related conditions, third trimester (principal); O99.283 Endocrine, nutritional and metabolic diseases complicating pregnancy, third trimester
CPT/HCPCS: 59025

== ENCOUNTER 2025-01-02 08:54 | Outpatient (OUT) | payer BC, SELFPAY ==
--- OUTSIDE RECORDS SUMMARY | 2024-12-23 14:00 | XMS_ITS | Encounter Summary ---
Author Organization [facility] Address [address] [place] [address] Care Team Providers Care Helicopter Dispatcher Name Role Phone Danny Schuler MD Primary Care Provider [phone] Danny Scuhler MD Unavailable [phone] Reason for Visit * Reason Comments Routine Visit Encounter Details Date Type Department Care Team (Late Contact Info) Description 12/23/2024 2:00 PM EDT Routine [facility] [address] [place] [address] Jessica Steen, [place] [address] [place] [address] Third trimester ([facility]); 31 weeks gestation of ([facility]) Social History Tobacco Use Types Packs/Day [...] or ex-partner? No 12/11/2022 Social Connection and Isolation Panel Answer Date Recorded In a typical week, how many times do you talk on the phone with family, friends, or neighbors? Three times a week 12/11/2022 How often do you get togethe r with friends or relatives? Once a week 12/11/2022 How often do you attend chur or druze services? More than 4 times per year 12/11/2022 Do you belong to any clubs o r organizations such as samaritan groups, unions, fraternal or athletic groups, or [...] medical care, and heating? Somewhat hard 12/11/2022 [facility] - Occupational [...] place to sleep or slept in a penitentiary (including now)? No 12/11/2022 Education Answer Date [...] Left 2019 OVARIAN CYST REMOVAL Left 05/20/2020 [facility] William VAGINAL DELIVERY REVIEW OF SYSTEMS [...] nursing note reviewed. Exam conducted with a public safety dispatcher present. Vitals: Estimated body mass index is 29.42 kg/m?? as calculated from the following: Height as of 02/26/24: 5' 4 . Weight as of this encounter: 171 lb 6.4 oz. BP: 110/70 Patient's last menstrual period was 05/16/2024. ASSESSMENT & PLAN ICD-10-CM 1. Third trimester ([facility]) Z34.93 2. 31 weeks gestation of ([facility]) Z3A.31 POCT urinalysis dipstick manually resulted Return [...] PM EDT Routine [facility] [address] [place] [address] Doc Thomas DO [address] [place] [address] documented as of this encounter Procedures Procedure Name Priority Date/Time Associated Diagnosis Comments POCT URINALYSIS DIPSTICK Routine 12/23/2024 2:01 PM EDT 31 weeks gestation of ([facility]) documented in this encounter Results * (ABNORMAL) [...] 12/23/2024 2:01 PM EDT us Jessica Steen NP POINT OF CARE TEST ENTER/EDIT ORDERABLES Final Result documented in this encounter Visit Diagnoses Diagnosis Third trimester ([facility]) state, incidental 31 weeks gestation of ([facility]) documented in this encounter Care Teams Helicopter Dispatcher Relationship Specialty Start Date End Date Danny Schuler MD [address] [address] PCP - General Family Medicine 07/24/22 Danny Schuler MD [address] [address] PCP - Ziggy Richard 06/16/20 documented as of this encounter
--- NOTE | 2025-01-02 08:55 | US_ITS ---
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 heart rate: 140 bpm Amniotic fluid index: 13.84 cm with the deepest vertical pocket measuring 6.39 cm. Biophysical profile: breathing movements: 2/2 Gross body movements: 2/2 tone: 2/2 Amniotic fluid volume: 2/2 US/US OB BPP w non-stress IMPRESSION: Biophysical profile: 10/23 Impression dictated by: Emmanuel Dalton M.D. 01/02/2025 3:02 PM Dictation Location: [employer] Electronically authenticated by: [id number] Y Date: 01/02/2025 15:02
--- OUTSIDE RECORDS SUMMARY | 2025-01-02 08:57 | XMS_ITS | CCD ---
Author Organization [facility] CliniSymi Care Team Providers Care Car Pre Cooler Name Role Phone BECERRIL, DAVID P Unavailable [...] Unavailable Pocos, Myron Washburn Attending Unavailable Pocos, Myorn Washburn Referring Unavailable Pocos, Myron Washburn Attending Unavailable Myron Marroquin Admitting Unavailable MD Rosalie Payne Primary Care Provider [phone] DO Marcelle Patel Attending Provider Marcelle Patel Attending Unavailable Marcelle Patel Admitting Unavailable Rosalie Payne Primary Care Unavailable Rosalie Payne MD Primary Care Provider Rosalie Payne MD Primary Care Provider Rosalie Payne MD Unavailable [phone] LESA SINGH Attending Unavailable DOC THOMAS Attending Unavailable PRETTY CHAIDEZ Attending Unavailable DOC THOMAS Attending Unavailable PRETTY CHAIDEZ Attending Unavailable LUNA STEEN Attending Unavailable DOC THOMAS Attending Unavailable LUNA STEEN Attending Unavailable PEPE KIRBY Attending Unavailable MYRNO MARROQUIN Referring Unavailable ROSALIE PAYNE Attending Unavailable MYRON MARROQUIN Attending Unavailable Allergies Allergy Classification Reported Allergen(s) Allergy Type Date of Onset Reaction(s) Facility Latex (1 source) Latex Substance Allergy 1 [facility] Macrolides (antibiotic) (1 source) Azithromycin Drug Allergy 1 [facility] (20 sources) Azithromycin; Translations: [azithromycin] Drug Allergy 1 [facility] (11 sources) Latex; Translations: [Latex] Propensity to adverse reactions to drug 1 [facility] (1 source) Azithromycin Drug Allergy 0 [facility] Repository (1 source) natural latex rubber Drug allergy (disorder) [facility] Repository (2 sources) Banana Extract; Translations: [Banana] Drug Allergy Vomiting (disorder) [facility] (20 sources) Midodrine; Translations: [midodrine] Drug Allergy 3 Numbness [facility] (20 sources) Latex Allergy to substance 1 [facility] (1 source) Azithromycin Drug Allergy 4 [facility] Repository (1 source) Latex Drug allergy (disorder) 4 [facility] Repository Medications Current Medications Medication Drug Class(es) Dates Sig (Normalized) Sig (Original) [id number] 200 actuat albuterol 0.09 mg/actuat metered dose [...] tablet Indications: Nausea and vomiting in ([facility]) Take 1 tablet (4 mg) by mouth [...] vomiting during ([facility]) Take 1 tablet (4 mg) by mouth every 6 (six) hours if needed for nausea or vomiting 30 tablet 3 10/05/2024 11/04/2024 Active Start: 08-26-2024 End: 09-30-2024 take 1 tablet by mouth every six hours for nausea ondansetron ODT (Zofran-ODT) 4 MG disintegrating tablet Indications: Nausea and vomiting during ([facility]) Take 1 tablet (4 mg) by mouth [...] mg by mouth daily 0 Active Citalopram Antelope bromide Active clotrimazole 10 mg oral lozenge (3 sources) Azole Antifungal Start: 05-11-2021 Clotrimazole 10 MG 1 wenceslao Mouth/Throat Three times a day for 7 day(s) Apr, Not-Taking/PRN medroxyPROGESTERone (4 sources) Progestin Depo-Provera Not-Taking/PRN Depo-Provera Act nicolle metoclopramide 10 mg oral tablet (12 sources) Dopamine-2 Receptor Antagonist Start: 07-16-2024 End: 09-30-2024 metoclopramide (Reglan) 10 MG tablet Indications: Nausea/vomiting in ([facility]) Take 1 tablet (10 mg) by [...] bone disease and musculoskeletal deformities (20 sources) [place] Schlatter disease; 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 Ordering Physician: Doc Thomas D.O. Date of Service: 12/26/24 Procedure(s): US OB BPP w non-stress Accession Number(s): [id number] cc: Doc Thomas D.O.; ROSALIE PAYNE [address] [id number] Patient Name: ALETA CASTRO MRN: [facility]:[id number] date: 2000 Sex: F Assigned Patient Location: US Current Patient Location: Accession/Order Number: [id number] Exam Date: 12/26/2024 09:00 Report Date: 12/26/2024 [...] Aguilar M.D. 12/26/2024 11:19 AM Dictation Location: [place] [address] Electronically authenticated by: [id number] Y Date: 12/26/2024 11:19 Dictated By: Deshaun Aguilar M.D. Signed By: 12/26/24 1122 DD/ 1119 TD/TT: Guidance Services Coordinator: Mercedes RadiologyRodogevon rai MD - 12/26/2024 [place] [address] Ultrasound Report Signed Patient: ALETA CASTRO MR#: [id number] : 2000 Acct:[id number] Age/Sex: 24 / F ADM Date: 12/26/24 Loc: US Attending Dr: Doc Thomas D.O. Ordering Physician: Doc Thomas D.O. Date of Service: 12/26/24 Procedure(s): US OB BPP w non-stress Accession Number(s): [id number] cc: Doc Thomas D.O.; ROSALIE PAYNE [address] [address] Patient Name: ALETA CASTRO MRN: [facility]:[id number] date: 2000 Sex: F Assigned Patient Location: US Current Patient Location: Accession/Order Number: [id number] Exam Date: 12/26/2024 09:00 Report Date: 12/26/2024 [...] Aguilar M.D. 12/26/2024 11:19 AM Dictation Location: [place] [address] Electronically authenticated by: [id number] Y Date: 12/26/2024 11:19 Dictated By: Deshaun Aguilar M.D. Signed By: 12/26/24 1122 DD/ 1119 TD/TT: Guidance Services Coordinator: [facility] Radiology Study observation (narrative) [facility] US OB BPP W NON-STRESS Ordered By: Radiologist Radiology on 12-26-2024 [facility] [employer] Work Phone: US OB GROWTHon 12-26-2024 [place] [address] Ultrasound Report Signed Patient: ALETA CASTRO MR#: [id number] : 2000 Acct:[id number] Age/Sex: 24 / F ADM Date: 12/26/24 Loc: US Attending Dr: Doc Thomas D.O. Ordering Physician: Doc Thomas D.O. Date of Service: 12/26/24 Procedure(s): US OB growth Accession Number(s): [id number] cc: Doc Thomas D.O.; ROSALIE PAYNE [place] [id number] Patient Name: ALETA CASTRO MRN: [facility]:[id number] date: 2000 Sex: F Assigned Patient Location: Current Patient Location: Accession/Order Number: [id number] Exam Date: 12/26/2024 09:00 Report Date: 12/26/2024 11:31 At the request of: DOC THOMAS DO Procedure: US OB growth Obstetric ultrasound for growth INDICATION: Gabby's disease FINDINGS: Single live anterior cephalic presentation longitudinal lie. Amniotic fluid index 12.4 cm between the gestational age fifth and 95th percentile. Largest pocket of fluid 5.1 cm. heart rate 1 52 bpm. motion documented by the carton counter feeder.. Estimated weight 2093 g 71.4%. Gestation age 32 weeks and 0 days. Biparietal diameter 7.93 m. Head circumference 30.7 cm. Otherwise the 10.6 cm. Abdominal circumference 28.9 cm. Femur length 6.4 cm. US/US OB growth IMPRESSION: Single live intrauterine of approximately 30 weeks Impression dictated by: Deshaun Aguilar M.D. 12/26/2024 11:31 AM Dictation Location: [place] [address] Electronically authenticated by: [id number] Y Date: 12/26/2024 11:31 Dictated By: Deshaun Aguilar M.D. Signed By: 12/26/24 1133 DD/ 1131 TD/TT: Guidance Services Coordinator: [facility] Radiology, Radiologi MD cecelia - 12/26/2024 [place] [address] Ultrasound Report Signed Patient: ALETA CASTRO MR#: [id number] : 2000 Acct:[id number] Age/Sex: 24 / F ADM Date: 12/26/24 Loc: US Attending Dr: Doc Thomas D.O. Ordering Physician: Doc Thomas D.O. Date of Service: 12/26/24 Procedure(s): US OB growth Accession Number(s): [id number] cc: Doc Thomas D.O.; ROSALIE PAYNE [place] [id number] Patient Name: ALETA CASTRO MRN: [id number]:[id number] date: 2000 Sex: F Assigned Patient Location: Current Patient Location: Accession/Order Number: [id number] Exam Date: 12/26/2024 09:00 Report Date: 12/26/2024 11:31 At the request of: DOC THOMAS DO Procedure: US OB growth Obstetric ultrasound for growth INDICATION: Gabby's disease FINDINGS: Single live anterior cephalic presentation longitudinal lie. Amniotic fluid index 12.4 cm between the gestational age fifth and 95th percentile. Largest pocket of fluid 5.1 cm. heart rate 1 52 bpm. motion documented by the carton counter feeder.. Estimated weight 2093 g 71.4%. Gestation age 32 weeks and 0 days. Biparietal diameter 7.93 m. Head circumference 30.7 cm. Otherwise the 10.6 cm. Abdominal circumference 28.9 cm. Femur length 6.4 cm. US/US OB growth IMPRESSION: Single live intrauterine of approximately 30 weeks Impression dictated by: Deshaun Aguilar M.D. 12/26/2024 11:31 AM Dictation Location: [place] [address] Electronically authenticated by: [id number] Y Date: 12/26/2024 11:31 Dictated By: Deshaun Aguilar M.D. Signed By: 12/26/24 1133 DD/ 1131 TD/TT: Guidance Services Coordinator: [facility] Radiology Study observation (narrative) [facility] OB GROWTHOrdered By: Paola ologist Radiology on 12-26-2024 [facility] Work Phone: Urinalysis macro (dipstick) panel (U)on 12-23-2024 Bilirubin, UA Negative Negative - 4(70) +++ mg/dL [facility] Blood, UA Negative Negative - 50 Randall/mcL [facility] Clarity, UA Clear [facility] Color, UA Yellow [facility] Glucose, UA 1+ Negative - 2000(110) ++++ mg/dL [facility] Interpretation and review of laboratory results Abnormal [facility] Ketones, UA Negative Negative - 160(16) ++++ mg/dL [facility] Leukocytes, UA Trace Negative - 500+++ Rick/mcL [facility] Nitrite, UA Negative Negative - Positive [facility] pH, UA 6 5 - 9 [facility] Protein, UA Negative Negative - 1999(20) ++++ mg/dL [facility] Spec Grav, UA 1.015 1 - 1.03 [facility] Urobilinogen, UA 2.0 0.2 - 12 mg/dL [facility] Urinalysis macro (dipstick) panel (U)on 12-09-2024 Bilirubin, UA Negative Negative - 4(70) +++ mg/dL [facility] Blood, UA Negative Negative - 50 Randall/mcL [facility] Clarity, UA Clear [facility] Color, UA Yellow [facility] Glucose, UA Negative Negative - 1999(110) ++++ mg/dL [facility] Interpretation and review of laboratory results Abnormal [facility] Ketones, UA Negative Negative - 160(16) ++++ mg/dL [facility] Leukocytes, UA Positive Negative - 500+++ Rick/mcL [facility] Comment on above: 1+ Nitrite, UA Negative Negative - Positive [facility] pH, UA 7 5 - 9 [facility] Protein, UA Negative Negative - 1999(20) ++++ mg/dL [facility] Spec Grav, UA 1.01 1 - 1.03 [facility] Urobilinogen, UA 0.2 0.2 - 12 mg/dL [facility] Healthcare Office Visiton 11-27-2024 Follow-up visit [id number] Yung Castro er N 2000 F Date Provider Department Center 11/27/2024 61143-VJERSELESA SINGH [facility] Family History Family Status - Relation Status Age at Mother Alive Father Alive Level of Service:54444 MI OFFICE/OUTPATIENT NEW LOW MDM 30 MINUTES Reason for Visit and Comments: New Patient [632] - New patient here today to establish care with cardiology Syncope [506] POTS [Other] Positive tilt table [Other] 6 months [Other] Normal [facility] Urinalysis macro (dipstick) panel (U)on 11-25-2024 Bilirubin, UA Positive Negative - 4(70) +++ mg/dL [facility] Comment on above: 1+ Blood, UA Negative Negative - 50 Randall/mcL [facility] Clarity, UA Clear [facility] Color, UA Yellow [facility] Glucose, UA Positive Negative - 1999(110) ++++ mg/dL [facility] Comment on above: Trace Interpretation and review of laboratory results Abnormal [facility] Ketones, UA Negative Negative - 160(16) ++++ mg/dL [facility] Leukocytes, UA Negative Negative - 500+++ Rick/mcL [facility] Nitrite, UA Negative Negative - Positive [facility] pH, UA 6 5 - 9 [facility] Protein, UA Positive Negative - 1999(20) ++++ mg/dL [facility] Comment on above: Trace Spec Grav, UA 1.03 1 - 1.03 [facility] Urobilinogen, UA 0.2 0.2 - 12 mg/dL [facility] CA ECHO DOPPLER COMPLETEon 0 11-24-2024 [place] [address] Cardiology Report Signed Patient: ALETA CASTRO MR#: [id number] : 2000 Acct:[id number] Age/Sex: 24 / F ADM Date: 11/12/24 Loc: CARD Attending Dr: Luna Steen Ordering Physician: Luna Steen Date of Service: 11/12/24 Procedure(s): CA echo doppler complete Accession Number(s): [id number] cc: Luna Steen; ROSALIE PAYNE Patient Name: ALETA CASTRO MR#: [id number] : 2000 Exam Date: 11/12/2024 Ordering Doctor: LUNA STEEN [facility] ECHOCARDIOGRAM REPORT PROCEDURE: CA ECHO DOPPLER COMPLETE [...] 11/24/2024 at 16:39 (more content not included)... [facility] Radiology, Radiologi MD cecelia - 11/24/2024 [place] [address] Cardiology Report Signed Patient: ALETA CASTRO MR#: [id number] : 2000 Acct:[id number] Age/Sex: 24 / F ADM Date: 11/12/24 Loc: CARD Attending Dr: Luna Steen Ordering Physician: Luna Steen Date of Service: 11/12/24 Procedure(s): CA echo doppler complete Accession Number(s): [id number] cc: Luna Steen; ROSALIE PAYNE Patient Name: ALETA CASTRO MR#: [id number] : 2000 Exam Date: 11/12/2024 Ordering Doctor: LUNA STEEN [facility] ECHOCARDIOGRAM REPORT PROCEDURE: CA ECHO DOPPLER COMPLETE [...] Signed By: 11/24/24 1640 DD/ 1639 TD/TT: Guidance Services Coordinator: [facility] Radiology Study observation (narrative) [facility] CA ECHO DOPPLER COMPLETEOrde red By: Radiologist Radiology on 11-24-2024 [facility] Work Phone: ECG 12-LEADon 11-13-2024 [place] [address] Electrocardiograph Report Signed Patient: ALEAT CASTRO MR#: [id number] : 2000 Acct:[id number] Age/Sex: 24 / F ADM Date: 11/12/24 Loc: CARD Attending Dr: Luna Steen Ordering Physician: Luna Steen Date of Service: 11/12/24 Procedure(s): ECG 12 lead Accession Number(s): [id number] cc: [facility] Test Date: 2024-11-12 Pat Name: ALETA CASTRO Department: Room: - Gender: Female Health Program Manager: : 2000 Requested By: LUNA STEEN Order Number: [id number] Reading : Lesa Singh Measurements Intervals [place] Rate: 79 P: 42 MI: 158 QRS: 81 QRSD: 90 T: 41 QT: 353 QTc: 405 Interpretive Statements SINUS RHYTHM Normal EKG No previous ECG available for comparison Electronically Signed On 11-13-2024 13:34:21 EDT by Lesa Singh Dictated By: Lesa Singh M.D. Signed By: 11/13/24 1334 11/13/24 1334 DD/ 1206 TD/TT: Guidance Services Coordinator: [facility] Radiology, Radiologevon rai MD - 11/13/2024 [place] [address] Electrocardiograph Report Signed Patient: ALETA CASTRO MR#: [id number] : 2000 Acct:[id number] Age/Sex: 24 / F ADM Date: 11/12/24 Loc: CARD Attending Dr: Luna Steen Ordering Physician: Luna Steen Date of Service: 11/12/24 Procedure(s): ECG 12 lead Accession Number(s): [id number] cc: [facility] Test Date: 2024-11-12 Pat Name: ALETA CASTRO Department: Room: - Gender: Female Health Program Manager: : 2000 Requested By: LUNA STEEN Order Number: [id number] Reading MD: Lesa Singh Measurements Intervals [place] Rate: 79 P: 42 MI: 158 QRS: 81 QRSD: 90 T: 41 QT: 353 QTc: 405 Interpretive Statements SINUS RHYTHM Normal EKG No previous ECG available for comparison Electronically Signed On 11-13-2024 13:34:21 EDT by Lesa Singh Dictated By: Lesa Singh M.D. Signed By: 11/13/24 1334 11/13/24 1334 DD/ 1206 TD/TT: Guidance Services Coordinator: [facility] ECG 12-LEADOrdered By: Radio logist Radiology on 11-13-2024 [facility] Work Phone: ECG 12-LEADon 11-12-2024 Radiology Study observation (narrative) [facility] ALL CBC WITH AUTO DIFFon BASOPHILS ABSOLUTE AUTO 0 [facility] Basophils/100 WBC (Bld) 0.2 % 0.2 - 2.0 % [facility] Eosinophils/100 WBC (Bld) 0.5 % Low 0.9 - 7.0 % [facility] Erythrocyte distribution width (RBC) [Ratio] 12.7 % 11.0 - 15.0 % [facility] Hematocrit (Bld) [Volume fraction] 31.2 % Low 36.0 - 48.0 % [facility] Hemoglobin (Bld) [Mass/Vol] 10.8 g/dL Low 12.0 - 16.0 g/dL [facility] IMMATURE GRANULOCYTES ABS AUTO 0.01 [facility] Immature granulocytes/100 WBC (Bld) 0.2 % 0.0 - 0.5 % [facility] Interpretation and review of laboratory results Abnormal [facility] LYMPHOCYTES ABSOLUTE AUTO 1 Low [facility] Lymphocytes/100 WBC (Bld) 15 % Low 20.5 - 60.0 % [facility] MCH (RBC) [Entitic mass] 32.3 pg 26.7 - 34.0 pg [facility] MCHC (RBC) [Mass/Vol] 34.6 g/dL 29.9 - 35.2 g/dL [facility] MCV (RBC) [Entitic vol] 93.4 fL 81.0 - 99.0 fL [facility] MONOCYTES ABSOLUTE AUTO 0.5 [facility] Monocytes/100 WBC (Bld) 7.7 % 1.7 - 12.0 % [facility] NEUTROPHILS ABSOLUTE AUTO 5 [facility] Neutrophils/100 WBC (Bld) 76.4 % High 43.0 - 75.0 % [facility] Platelet mean volume (Bld) [Entitic vol] 9.7 fL 9.5 - 13.5 fL [facility] TBH EO # 0 [facility] PLT 187 [facility] TB RBC 3.34 Low [facility] WBC 6.6 [facility] IGP,APTIMA HPV,AGE GDLNon AGE GDLN ACOG TESTING Note . [facility] Comment on above: TESTS RESULT FLAG UN ITS REF RANGE LAB Clinician Provided Cytology Information Source.............Endocervix No. of containers..01 ThinPrep Vial Age Amaris GUERRERO Yaa... FLAG LEGEND: L-Low Normal,H-High Normal,LL-Alert Low,HH-Alert High <-Panic Low,>-Panic High,A-Abnormal,AA-Critical Abnormal Performed at: 01 =[facility] [address] [place] [address] Ludy Hector MD, IGP, RFX APTIMA HPV ASCU Note . [facility] Comment on above: TESTS RESULT FLAG [facility] REF RANGE LAB DIAGNOSIS: 02 NEGATIVE FOR INTRAEPITHELIAL LESION OR MALIGNANCY. THIS SPECIMEN WAS RESCREENED PART OF OUR OYSTER CULLER PROGRAM. Specimen adequacy: 02 Satisfactory for evaluation. No endocervical component is identified. Performed by: 02 Brionna Mello, Water Supply Engineer ([place]) QC reviewed by: 02 Polina Simons, Water Supply Engineer . 02 Note: Note 02 The Pap [...] <-Panic Low,>-Panic High,A-Abnormal,AA-Critical Abnormal Performed at: [address] [address] Ludy Hector MD, Performed at: = - [facility] [id number] Legal Records Clerk: Ludy Hector MD, Phone: [phone] Performed at: [address] [id number] Legal Records Clerk: Ludy Hector MD, Phone: [phone] [facility] RECURRENT VAGINITIS (HTRX)on 10-30-2024 ATOPOBIUM VAGINAE 0 [facility] ATOPOBIUM VAGINAE Not detected [facility] BVAB 2,3 (BACTERIAL VAGINOSIS ASSOCIATED BACTERIA 2, 3); MOBILUNCUS SPP 0 [facility] BVAB 2,3 (BACTERIAL VAGINOSIS ASSOCIATED BACTERIA 2, 3); MOBILUNCUS SPP Not detected [facility] RICKEY ALBICANS, PARAPSILOSIS, TROPICALIS 0 [facility] RICKEY ALBICANS, PARAPSILOSIS, TROPICALIS Not detected [facility] RICKEY GLABRATA 0 [facility] RICKEY GLABRATA Not detected [facility] RICKEY KRUSEI 0 [facility] RICKEY KRUSEI Not detected [facility] CHLAMYDIA TRACHOMATIS 0 [facility] CHLAMYDIA TRACHOMATIS Not detected [facility] GARDNERELLA VAGINALIS 0 [facility] GARDNERELLA VAGINALIS Not detected [facility] MEGASPHAERA (TYPES 1, 2) 0 [facility] MEGASPHAERA (TYPES 1, 2) Not detected [facility] MYCOPLASMA GENITALIUM 0 [facility] MYCOPLASMA GENITALIUM Not detected [facility] NEISSERIA GONORRHOEAE 0 [facility] NEISSERIA GONORRHOEAE Not detected [facility] TRICHOMONAS VAGINALIS 0 [facility] TRICHOMONAS VAGINALIS Not detected [facility] Urinalysis macro (dipstick) panel (U)on 10-28-2024 Bilirubin, UA Positive Negative - 4(70) +++ mg/dL [facility] Blood, UA Negative Negative - 50 Randall/mcL [facility] Clarity, UA Clear [facility] Color, UA Yellow [facility] Glucose, UA Positive Negative - 2000(110) ++++ mg/dL [facility] Interpretation and review of laboratory results Abnormal [facility] Ketones, UA Positive Negative - 160(16) ++++ mg/dL [facility] Leukocytes, UA Negative Negative - 500+++ Rick/mcL [facility] Nitrite, UA Negative Negative - Positive [facility] pH, UA 6 5 - 9 [facility] Protein, UA Positive Negative - 2000(20) ++++ mg/dL [facility] Spec Grav, UA 1.03 1 - 1.03 [facility] Urobilinogen, UA 0.2 0.2 - 12 mg/dL [facility] US OB CERVICAL LENGTHon 09-16 [place] [address] Ultrasound Report Signed Patient: ALETA CASTRO MR#: [id number] : 2000 Acct:[id number] Age/Sex: 24 / F ADM Date: 10/06/24 Loc: US Attending Dr: Doc Thomas D.O. Ordering Physician: Doc Thomas D.O. Date of Service: 10/06/24 Procedure(s): US OB cervical length Accession Number(s): [id number] cc: Doc Thomas D.O.; ROSALIE PAYNE [address] [address] Patient Name: ALETA CASTRO MRN: [facility]:[id number] date: 2000 Sex: F Assigned Patient Location: US Current Patient Location: US Accession/Order Number: [id number] Exam Date: 10/06/2024 14:25 Report Date: 10/06/2024 [...] Jr., D.O. 10/06/2024 2:26 PM Dictation Location: [place] [address] Electronically authenticated by: [id number] Y Date: 10/06/2024 14:26 Dictated By: Jermaine Nguyễn M.D. Signed By: 10/06/24 1428 DD/ 142 TD/TT: Guidance Services Coordinator: [facility] RadiologyRodogevon rai MD - 10/06/2024 [place] [address] Ultrasound Report Signed Patient: ALETA CASTRO MR#: [id number] : 2000 Acct:[id number] Age/Sex: 24 / F ADM Date: 10/06/24 Loc: US Attending Dr: Doc Thomas D.O. Ordering Physician: Doc Thomas D.O. Date of Service: 10/06/24 Procedure(s): US OB cervical length Accession Number(s): [id number] cc: Doc Thomas D.O.; ROSALIE PAYNE [address] [address] Patient Name: ALETA CASTRO MRN: [facility]:[id number] date: 2000 Sex: F Assigned Patient Location: Current Patient Location: Accession/Order Number: [id number] Exam Date: 10/06/2024 14:25 Report Date: 10/06/2024 [...] Jr., D.O. 10/06/2024 2:26 PM Dictation Location: [place] [address] Electronically authenticated by: [id number] Y Date: 10/06/2024 14:26 Dictated By: Jermaine Nguyễn M.D. Signed By: 10/06/24 1428 DD/ 1426 TD/TT: Guidance Services Coordinator: [facility] Rad[facility] Study observation (narrative) [facility] US OB CERVICAL LENGTHOrdered By: Radiologist Radiology on 10-06-2024 [facility] [facility] [employer] [employer] Work Phone: US OB 14+ WEEKS ANATOMY [...] UA Negative Negative - 4(70) +++ mg/dL [facility] Blood, UA Negative Negative - 50 Randall/mcL [facility] Clarity, UA Clear [facility] Color, UA Yellow [facility] Glucose, UA Negative Negative - 1999(110) ++++ mg/dL [facility] Interpretation and review of laboratory results Normal [facility] Ketones, UA Negative Negative - 160(16) ++++ mg/dL [facility] Leukocytes, UA Negative Negative - 500+++ Rick/mcL [facility] Nitrite, UA Negative Negative - Positive [facility] pH, UA 6 5 - 9 [facility] Protein, UA Negative Negative - 1999(20) ++++ mg/dL [facility] Spec Grav, UA 1.005 1 - 1.03 [facility] Urobilinogen, UA 1.0 0.2 - 12 mg/dL [facility] ALL THYROID STIM HORMONEon 0 09-28-2024 TSH Qn 0.836 m[IU]/L [facility]ISYNC [facility] Urinalysis macro (dipstick) panel (U)on 09-02-2024 Bilirubin, UA Negative Negative - 4(70) +++ mg/dL [facility] Blood, UA Negative Negative - 50 Randall/mcL [facility] Clarity, UA Clear [facility] Color, UA Yellow [facility] Glucose, UA Negative Negative - 1999(110) ++++ mg/dL [facility] Interpretation and review of laboratory results Normal [facility] Ketones, UA Negative Negative - 160(16) ++++ mg/dL [facility] Leukocytes, UA Negative Negative - 500+++ Rick/mcL [facility] Nitrite, UA Negative Negative - Positive [facility] pH, UA 6 5 - 9 [facility] Protein, UA Negative Negative - 1999(20) ++++ mg/dL [facility] Spec Grav, UA 1.025 1 - 1.03 [facility] Urobilinogen, UA 0.2 0.2 - 12 mg/dL [facility] ALL THYROID STIM HORMONEon 0 08-31-2024 TSH Qn 1.413 m[IU]/L [facility]stick) panel (U)on 08-05-2024 Bilirubin, UA Negative Negative - 4(70) +++ mg/dL [facility] Blood, UA Negative Negative - 50 Randall/mcL [facility] Clarity, UA Clear [facility] Color, UA Yellow [facility] Glucose, UA Negative Negative - 1999(110) ++++ mg/dL [facility] Interpretation and review of laboratory results Abnormal [facility] Ketones, UA Positive Negative - 160(16) ++++ mg/dL [facility] Comment on above: 40 Leukocytes, UA Trace Negative - 500+++ Rick/mcL [facility] Nitrite, UA Negative Negative - Positive [facility] pH, UA 6.5 5 - 9 [facility] Protein, UA Negative Negative - 1999(20) ++++ mg/dL [facility] Spec Grav, UA 1.025 1 - 1.03 [facility] Urobilinogen, UA 1.0 0.2 - 12 mg/dL [facility] BOX TESTon 07-18-2024 BOX TEST SENT OUT [facility] BOX1 [facility] BOX2 07/18/24 [facility] DRUG SCREEN RAPID (URINE )on 07-18-2024 AMPHETAMINE SCREEN URINE Negative NEGATIVE [facility] BARBITURATES SCREEN URINE Negative NEGATIVE [facility] BENZODIAZEPINES SCREEN URINE Negative NEGATIVE [facility] BUPRENORPHINE SCREEN URINE Negative NEGATIVE [facility] Comment on above: DRUG CLASS TEST SYST [...] 300 ng/mL CANNABINOID SCREEN URINE Negative [facility] COC[facility]INE [facility]INE Negative [facility] METHADONE SCREEN URINE Negative NEGATIVE [facility] METHAMPHETAMINES SCREEN URINE Negative NEGATIVE [facility] OPIATE SCREEN URINE Negative NEGATIVE [facility] OXYCODONE SCREEN URINE Negative NEGATIVE [facility] PHENCYCLIDINE SCREEN URINE Negative NEGATIVE [facility] TRICYCLIC ANTIDEPRESSANT URINE Negative NEGATIVE [facility] HCG ( test) Ql (U)o n 07-16-2024 Interpretation and review of laboratory results Abnormal [facility] Preg Test, Ur Positive Negative [facility] US OB TRANSVAGINALon 025 US OB TRANSVAGINAL [...] MD, PHD at 19-Jul-2024 08:55:15 PM [facility] Normal Not Available Comment on above: Order Comment: US OB TRANSVAGINAL No LMP recorded. Urinalysis macro (dipstick) panel (U)on 07-16-2024 Bilirubin, UA Negative Negative - 4(70) +++ mg/dL [facility] Blood, UA Negative Negative - 50 Randall/mcL [facility] Clarity, UA Clear [facility] Color, UA Yellow [facility] Glucose, UA Negative Negative - 1999(110) ++++ mg/dL [facility] Interpretation and review of laboratory results Normal [facility] Ketones, UA Negative Negative - 160(16) ++++ mg/dL [facility] Leukocytes, UA Negative Negative - 500+++ Rick/mcL [facility] Nitrite, UA Negative Negative - Positive [facility] pH, UA 6.5 5 - 9 [facility] Protein, UA Negative Negative - 1999(20) ++++ mg/dL [facility] Spec Grav, UA 1.02 1 - 1.03 [facility] Urobilinogen, UA 1.0 0.2 - 12 mg/dL [facility] CBC W Auto Differential pane l (Bld)on 02-21-2024 Band form neutrophils (Bld) [#/Vol] CANCELED [facility] Comment on above: Result canceled by [facility] ancillary. Band form neutrophils/100 WBC (Bld) CANCELED % [facility] Comment on above: Result canceled by t ancillary. Basophils (Bld) [#/Vol] 19 10*3/uL [facility] Basophils/100 WBC (Bld) 0.4 % [facility] Blasts (Bld) [#/Vol] CANCELED 0 cells/uL [facility] Comment on above: Result canceled by t ancillary. Blasts/100 WBC (Bld) CANCELED % [facility] Comment on above: Result canceled by [facility] ancillary. Eosinophils (Bld) [#/Vol] 91 10*3/uL [facility] Eosinophils/100 WBC (Bld) 1.9 % [facility] Erythrocyte distribution width (RBC) [Ratio] 12.5 % 11.0 - 15.0 % [facility] Hematocrit (Bld) [Volume fraction] 38.9 % 35.0 - 45.0 % [facility] Hemoglobin (Bld) [Mass/Vol] 12.8 g/dL 11.7 - 15.5 g/dL [facility] Lymphocytes (Bld) [#/Vol] 1282 10*3/uL [facility] Lymphocytes/100 WBC (Bld) 26.7 % [facility] MCH (RBC) [Entitic mass] 30.6 pg 27.0 - 33.0 pg [facility] MCHC (RBC) [Mass/Vol] 32.9 g/dL 32.0 - 36.0 g/dL [facility] Comment on above: For adults, a slight decrease in the calculated MCHC value (in the range of 30 to 32 g/dL) is most likely not clinically significant; however, it should be interpreted with caution in correlation with other red cell parameters and the patient's clinical condition. MCV (RBC) [Entitic vol] 93.1 fL 80.0 - 100.0 fL [facility] Metamyelocytes (Bld) [#/Vol] CANCELED 0 cells/uL [facility] Comment on above: Result canceled by t he ancillary. Metamyelocytes/100 WBC (Bld) CANCELED % [facility] Comment on above: Result canceled by t he ancillary. Monocytes (Bld) [#/Vol] 422 10*3/uL [facility] Monocytes/100 WBC (Bld) 8.8 % [facility] Myelocytes (Bld) [#/Vol] CANCELED 0 cells/uL [facility] Comment on above: Result canceled by t he ancillary. Myelocytes/100 WBC (Bld) CANCELED % [facility] Comment on above: Result canceled by t he ancillary. Neutrophils (Bld) [#/Vol] 2986 10*3/uL [facility] Neutrophils/100 WBC (Bld) 62.2 % [facility] Nucleated RBC (Bld) [#/Vol] CANCELED 0 cells/uL [facility] Comment on above: Result canceled by t he ancillary. Nucleated RBC/100 WBC (Bld) [Ratio] CANCELED 0 /100 WBC [facility] Comment on above: Result canceled by t he ancillary. Platelet mean volume (Bld) [Entitic vol] 9.3 fL 7.5 - 12.5 fL [facility] Platelets (Bld) [#/Vol] 291 10*3/uL [facility] Promyelocytes (Bld) [#/Vol] CANCELED 0 cells/uL [facility] Comment on above: Result canceled by t ancillary. Promyelocytes/100 WBC (Bld) CANCELED % [facility] Comment on above: Result canceled by t ancillary. RBC (Bld) [#/Vol] 4.18 10*6/uL [facility] Service comment (Unsp spec) [Interp] CANCELED [facility] Comment on above: Result canceled by t ancillary. Variant lymphocytes/100 WBC (Bld) CANCELED 0 - 10 % [facility] Comment on above: Result canceled by t ancillary. WBC (Bld) [#/Vol] 4.8 10*3/uL [facility] Iron and Iron binding capaci ty panelon 02-21-2024 Iron [Mass/Vol] 101 ug/dL [facility] Iron binding capacity [Mass/Vol] 340 [facility] Iron saturation [Mass fraction] 30 [facility] Laboratory - Chemistry and C hemistry - challengeon 02-21-2024 Albumin [Mass/Vol] 4.8 g/dL 3.6 - 5.1 g/dL [facility] Albumin/Globulin [Mass ratio] 1.8 {ratio} [facility] ALP [Catalytic activity/Vol] 65 U/L 31 - 125 U/L [facility] ALT [Catalytic activity/Vol] 16 U/L 6 - 29 U/L [facility] AST [Catalytic activity/Vol] 14 U/L 10 - 30 U/L [facility] Bilirubin [Mass/Vol] 0.6 mg/dL 0.2 - 1 .2 mg/dL [facility] Calcium [Mass/Vol] 9.3 mg/dL 8.6 - 10. 2 mg/dL [facility] Chloride [Moles/Vol] 107 mmol/L 98 - 11 0 mmol/L [facility] CO2 [Moles/Vol] 24 mmol/L 20 - 32 mmol/L [facility] Cortisol [Mass/Vol] 14.3 ug/dL mcg/dL [facility] Comment on above: Reference Range: For 8 a.m.(7-9 a.m.) Specimen: 4.0-22.0 Reference Range: For 4 p.m.(3-5 p.m.) Specimen: 3.0-17.0 * Please interpret above results accordingly * Creatinine [Mass/Vol] 0.71 mg/dL 0.50 - 0.96 mg/dL [facility] GFR/1.73 sq M.predicted among non-blacks MDRD (S/P/Bld) [Vol rate/Area] 122 mL/min/{1.73_m2} > OR = 60 mL/min/1.73m 2 [facility] Globulin (S) [Mass/Vol] 2.6 g/dL [facility] Glucose [Mass/Vol] 95 mg/dL 65 - 99 mg/dL [facility] Comment on above: Fasting reference interval Potassium [Moles/Vol] 4.2 mmol/L 3.5 - 5.3 mmol/L [facility] Protein [Mass/Vol] 7.4 g/dL 6.1 - 8.1 g/dL [facility] Sodium [Moles/Vol] 139 mmol/L 135 - 146 mmol/L [facility] Urea nitrogen [Mass/Vol] 16 mg/dL 7 - 25 mg/dL [facility] Urea nitrogen/Creatinine [Mass ratio] SEE NOTE: [facility] Comment on above: Not Reported: BUN an d Creatinine are within reference range. Laboratory - Serology - non- microon 02-21-2024 Thyroglobulin Ab Qn 153 [IU]/mL High < or = 1 IU/mL [facility] TPO Ab Qn 27 [IU]/mL High NINF [facility] No Panel Informationon 02-20 Interpretation and review of laboratory results Abnormal [facility] Performing Organizat ion Information Site ID: QTW Name: [facility] Address: [address] [place] [phone] Director: Urvashi Gtz [facility] Performing Organizat ion Information Site ID: QPT Name: [facility] Address: [address] [place] [address], [address] [place] [phone] Director: Yonis Beck MD [facility] T3, FREEon 02-05-2024 Free T3 [Mass/Vol] 3.6 pg/mL Normal 2.3-4.2 [facility] Comment on above: Performed By: #### 8 99, [id number], 866 #### [facility] [address], [address] [place] [address] Electronic Scanner Operator: Yonis Beck MD T4, FREEon 02-05-2024 Free T4 [Mass/Vol] 1.1 ng/dL Normal 0.8-1.8 [facility] Comment on above: Order Comment: FASTI NG:NO FASTING: NO Performed By: #### 8 99, [address]2538, 866 #### [facility] [address], [address] [place] [address] Electronic Scanner Operator: Yonis Beck MD TSHon 02-05-2024 TSH Qn 1.98 m[IU]/L Normal [facility] Comment on above: Result Comment: Refe rence Range > or = 20 Years 0.40-4.50 Ranges First trimester 0.26-2.66 Second trimester 0.55-2.73 Third trimester 0.43-2.91 Performed By: #### 8 99, [address]889, 866 #### [facility] [address], [address] [place] [address] Electronic Scanner Operator: Yonis Beck MD HCG ( test) IAbernice quintanilla Ql (U)Ordered By: Marcelle Patel on 09-02-2023 HCG ( test) Ql (U) Negative [facility] HCG,Urineon 09-02-2023 Beta HCG ( test) Ql (U) Negative Normal [facility] Comment on above: Result Comment: PERF ORMED BY: [place] [address] PATHOLOGIST AUDIO VISUAL ENGINEER RAYMOND SUERO M.D. Performed By: #### U HCG #### [address] Chaitanya 09-02-2023 L Specimen: [id number] Received: 09/03/23 Status: FRANKLYN Yassine Num: [id number] Spec Type: Surgical Subm Dr: Marcelle Patel, [...] Location Account Attending Physician Aleta Castro / [id number] Marcelle Patel DO SPEC NUM: [id number] RECD: 09/03/23 STATUS: FRANKLYN GONZALES NUM: [id number] MIRIAM: 09/02/23- SUBM DR: Marcelle Patel DO ENTERED: 09/03/[address] [facility] [address]: SPEC TYPE: Surgical DEPT: S [...] mild squamous acanthosis and occasionally associated Specimen: [id number] Received: 09/03/23 Status: JONYJabier Gonzales Num: [id number] Spec Type: Surgical Subm Dr: Marcelle Patel DO Tissues: A Small Intestine - Biopsy/Polyp (SMALL BOWEL BX) B GASTRIC FOR HP (GASTRIC HP) C Esophagus Biopsy (DISTAL ESOPHAGUS) D Esophagus Biopsy (PROXIMAL ESOPHAGUS) E Colon Biopsy (RANDOM RT COLON) F Colon Biopsy (RANDOM LT COLON) Procedures: HE/, Gross/Micro L4/6, H PYLORI, IHC First AB Patient: MatthewAleta N [id number] (Continued) Specimen: [id number] Received: 09/03/23 (Continued) Pathological Diagnosis (Continued) Signed (signature on file) Heather Villegas MD 09/05/23 1417 Specimen: [id number] Received: 09/03/23 Status: FRANKLYN Gonzales Num: [id number] Spec Type: Surgical Subm Dr: Marcelle Patel DO Tissues: A Small Intestine - Biopsy/Polyp (SMALL BOWEL BX) B GASTRIC FOR HP (GASTRIC HP) C Esophagus Biopsy (DISTAL ESOPHAGUS) D Esophagus Biopsy (PROXIMAL ESOPHAGUS) E Colon Biopsy (RANDOM RT COLON) F Colon Biopsy (RANDOM LT COLON) Procedures: , Gross/Micro L4/6, H PYLORI, IHC First AB Patient: Aleta Castro N [id number] (Continued) Specimen: [id number] Received: 09/03/23 (Continued) Pathological Diagnosis (Continued) lymphocytic [...] submitted (more content not included)... Normal [facility] Insurance Correspondence Off 05-08-2023 Insurance Correspondence Office [id number]#[id number] FF [facility] IntraOperative Documentson 0 04-29-2023 IntraOperative Documents [id number]#1.00TIF F [facility] Postoperative Documentson Postoperative Documents [id number]#1.00TIF F [facility] Main OR Intraoperative Recor don 04-25-2023 Main OR Intraoperative Record IntraOp Document Type FT Summary Primary Physician: Myron Marroquin DO Finalized Date/Time: 04/25/23 09:04:33 Pt. Name: ALETA CASTRO/Sex: 2000 Female Med Rec #: [id number] Physician: Myron Marroquin DO Financial #: [id number] Pt. Type: A Room/Bed: [place] [address] Admit/Disch: 04/23/23 06:25:15 - 04/23/23 14:50:00 Institution: [...] assist with the block. Patient's heartrate 89, qe22-228% on room air. patient tolerated block well. 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 Normal [facility] Consent for Anesthesiaon Consent for Anesthesia [id number] IFF Normal [facility] Discharge Instructionson Discharge Instructions [id number]#1.00T IFF Normal [facility] IntraOperative Documentson 0 04-24-2023 IntraOperative Documents [id number]#1.00T IFF Normal [facility] Operative Reporton Operative Report SURGERY DATE: 2023 BEAN PICKER: Garry Camacho CST PREOPERATIVE DIAGNOSIS: Left knee anterior cruciate ligament tear POSTOPERATIVE DIAGNOSIS: Left knee anterior cruciate ligament tear OPERATION: Left knee diagnostic operative arthroscopy with autograft fflh-chriiu-vref anterior cruciate ligament reconstruction with InternalBrace augmentation ANESTHESIA: General as well as regional block ANESTHESIOLOGIST: KARTHIKEYAN Peacock ESTIMATED BLOOD LOSS: 10 mL INTRAVENOUS FLUIDS: Please see the operative record SPECIMEN: None COMPLICATIONS: None IMPLANTS: Arthrex [id number] Tightrope system with the button for the [...] The anterior cruciate ligament was reconstructed using iohx-dvivuh-hikh from patellar tendon autograft with this InternalBrace [...] over reaming with a 10 mm barrel cutter. Excess bone debris is again removed. [...] the femo (more content not included)... Normal [facility] Comment on above: Result Comment: Elec tronically Signed By: Myron Marroquin DO\.br\Date and Time Signed: 04/24/23 07:15 EST Preoperative Documentson Preoperative Documents [id number] IFF [facility] Consent for Procedure/Surger yon 04-23-2023 Consent for Procedure/Surgery [id number]#1.00TIF F [facility] Consent for Treatmenton Consent for Treatment [id number]#1.00TIF F [facility] Discharge Instructionson Discharge Instructions ALETA CASTRO [...] been scheduled. Call for any problems. Where: [address] [place] [id number] Buyt.In (1) Medications What How Much When Instructions Next Dose New acetaminophen-oxycodone (Percocet 5 mg-325 mg oral tablet) 1 Tablets By Mouth As Directed 1-2 po Q4-6h prn pain Dx: S83.512D Duration: [address] [facility]/pharmacy #2345 New aspirin (Ecotrin 325 mg Tab-EC) 1 Tablets By Mouth Every day Pickup at [facility]/pharmacy #23[address] [facility]/pharmacy #[id number]: Ashish [address] [place], [place] [phone] Allergies Banana (Throat tightness, Hives, Vomiting) Latex (Hives, Swelling) azithromycin (Hives) midodrine (Numbness) Education Materials [place], [place] [facility] DISCHARGE INSTRUCTIONS: ANTERIOR CRUCIATE [...] concerns. ___ Myron Marroquin, DO [facility] [address] [place] [address] Reviewed: 06-23 Revised: 03/29 Common Emergency Awareness [...] your experie (more content not included)... Normal [facility] Comment on above: Result Comment: Elec tronically Signed By: Marcelo MCQUEEN, Shyla Acevedo\.ammy\Date and Time Signed: 04/23/23 10:58 EST H&P Updateon 04-23-2023 H&P Update [id number]#1.00TIF F Normal [facility] Main OR PACU I Recordon Main OR PACU I Record PACU Phase I Document Type FT Summary Primary Physician: Myron Marroquin DO Finalized Date/Time: 04/23/23 12:22:33 Pt. Name: ALETA CASTRO/Sex: 2000 Female Med Rec #: [id number] Physician: Myron Marroquin DO Financial #: [id number] Pt. Type: A Room/Bed: [place] [address] Admit/Disch: 04/23/23 06:25:15 - Institution: Case Times [...] Signed By: Valencia Jimenez RN 04/23/23 12:22 [facility] Main OR Preoperative Recordo n 04-23-2023 Main OR Preoperative Record PreOp Document Type FT Summary Primary Physician: Myron Marroquin DO Finalized Date/Time: 04/23/23 08:50:41 Pt. Name: ALETA CASTRO/Sex: 2000 Female Med Rec #: [id number] Physician: Myron Marroquin DO Financial #: [id number] Pt. Type: A Room/Bed: [place] [address] Admit/Disch: 04/23/23 06:25:15 - Institution: Case Times [...] By: Lyle Comer RN 04/23/23 08:50 Normal [facility] Monitor Recordon 04-23-2023 Monitor Record [id number]#1.00TI FF [facility] Operative Reporton Operative Report Patient: AILEEN [...] per current [facility] guidelines including hand hygeine, Guidance (Ultrasound used [...] patient tolerated the procedure as expected. Normal [facility] Comment on above: Result Comment: Elec tronically Signed By: [facility] ()Cyrus.br\Date and Time Signed: 04/23/23 07:56 EST Patient Education - Texton 0 04-23-2023 Patient Education - Text [place], [place] [facility] DISCHARGE INSTRUCTIONS: ANTERIOR CRUCIATE [...] concerns. ___ Myron Marroquin DO [facility] [address] [place] [address] Reviewed: 06-23 Revised: 03/29 [facility] Progress Note-Physicianon Progress Note-Physician Patient: ALETA [...] All Problems H/O: hypothyroidism / SNOMED CT 845698072 / Confirmed POTS (postural orthostatic tachycardia syndrome) / SNOMED CT 0117629652 / Confirmed Physical Examination Vital Signs 04/23/2023 [...] Pressure 1 (more content not included)... Normal [facility] Comment on above: Result Comment: Elec tronically Signed By: [facility] (), Cyrus Templeton\.br\Date and Time Signed: 04/23/23 11:06 EST Progress Note-Physician Patient: ALETA CASTRO Age: 22 years Sex: Female : 2000 Associated Diagnoses: None Author: Myron Marroquin DO Postoperative Information Procedure: L knee scope, ACL recon Preoperative Diagnosis: L ACL tear. Postoperative Diagnosis: same. Performed by: daniel. Senior Quality Assurance Specialist: Roby Camacho. Specimens Removed: none. Prosthesis: Arthrex. . Estimated Blood Loss: 10 ml. Complications: None. Anesthesia type: General, block. Normal [facility] Comment on above: Result Comment: Elec [...] All Problems H/O: hypothyroidism / SNOMED CT 946819473 / Confirmed POTS (postural orthostatic tachycardia syndrome) / SNOMED CT 6375846619 / Confirmed, Active Problems (2) H/O: hypothyroidism POTS (postural orthostatic tachycardia syndrome) Histories Past Medical History: No active or resolved past medical history items have been selected or recorded. Family History: No family history items have been selected or recorded. Procedure history: Laparoscopic left ovarian R/o (4540428879). Ovarian cyst removal (141907944). Social History Social & Psychosocial Habits Alcohol [...] U beta hCG Ql Negative . Plan [place] [employer]esthesi[employer] (ASA) physical status classification: Class II. Anesthetic Preoperative Plan: Anesthesia General. Regional Adductor Canal Block Left. Normal [facility] Comment on above: Result Comment: Elec tronically Signed By: Urbano Lan ()Cyrus.br\Date and Time Signed: 04/23/23 07:41 EST U BetaHcg Qualon 04-23-2023 HCG.beta subunit (U) [Moles/Vol] Negative [facility] [facility] Comment on above: Performed By: #### 2 [id number] ####[facility] [address] [place] [address] Consent for Procedure/Surger yon 04-16-2023 Consent for Procedure/Surgery [id number]#[id number] F Normal [facility] CBC w/ Auto Diffon 4 Basophil Absolute 0.0 E9/L Normal 0.0-0.2 [facility] Comment on above: Performed By: #### 2 [id number] ####[address] [address] Basophils/100 WBC (Bld) 0.4 % Normal 0.0-2.0 [facility] Comment on above: Performed By: #### 2 494355 ####[address] [address] Eos Absolute 0.1 E9/L Normal 0.0-0.5 [facility] Comment on above: Performed By: #### 2 618184 ####[address] [address] Eosinophils/100 WBC (Bld) 1.0 % Normal 0.0-8.0 [facility] Comment on above: Performed By: #### 2 267415 ####[address] [address] Erythrocyte distribution width (RBC) [Ratio] 12.6 % Normal 10.9-14.2 [facility] Comment on above: Performed By: #### 2 867774 ####[address] [address] Hematocrit (Bld) [Volume fraction] 39.0 % Normal 34.0-46.0 [facility] Comment on above: Performed By: #### 2 603663 ####[address] [address] Hemoglobin (Bld) [Mass/Vol] 13.1 g/dL Normal 12.0-16.0 [facility] Comment on above: Performed By: #### 2 959715 ####[address] [address] Lymph Absolute 1.4 E9/L Normal 1.0-4.0 [facility] Comment on above: Performed By: #### 2 709868 ####[address] [address] Lymphocytes/100 WBC (Bld) 22.2 % Normal 14.0-50.0 [facility] Comment on above: Performed By: #### 2 644975 ####[address] [address] MCH (RBC) [Entitic mass] 30.6 pg Normal 27.0-34.0 [facility] Comment on above: Performed By: #### 2 612522 ####[address] [address] MCHC (RBC) [Mass/Vol] 33.7 g/dL Normal 31.4-36.0 [facility] Comment on above: Performed By: #### 2 509851 ####[address] [address] MCV (RBC) [Entitic vol] 91.0 fL Normal 80.0-100.0 [facility] Comment on above: Performed By: #### 2 234220 ####[address] [address] Niobrara Absolute 0.4 E9/L Normal 0.2-1.[address] [facility] Comment on above: Performed By: #### 2 449795 ####[address] [address] Monocytes/100 WBC (Bld) 5.6 % Normal 4.0-14.0 [facility] Comment on above: Performed By: #### 2 658770 ####[address] [address] Neutro Absolute 4.6 E9/L Normal 2.0-7.5 [facility] Comment on above: Performed By: #### 2 721839 ####[address] [address] Neutro Auto 70.8 % Normal 36.0-75.0 [facility] Comment on above: Performed By: #### 2 718887 ####[address] [address] Platelet 312.0 E9/L Normal 150.0-500.0 [facility] Comment on above: Performed By: #### 2 968412 ####[facility] [address] [place] [address] Platelet mean volume (Bld) [Entitic vol] 7.7 fL Normal 6.4-10.8 [facility] Comment on above: Performed By: #### 2 938054 ####[facility] [address] [place] [address] RBC 4.3 E12/L Normal 4.3-5.9 [facility] Comment on above: Performed By: #### 2 638530 ####[facility] [address] [place] [address] WBC 6.5 E9/L Normal 4.0-11.0 [facility] Comment on above: Performed By: #### 2 313375 ####[facility] [address] [place] [address] Consent for Treatmenton 03-18 Consent for Treatment [id number]#1.00TIF F Normal [facility] HEMATOLOGYOrdered By: SYSTEM SYSTEM on 04-03-2023 [...] Normal 80.0 - 100.0 fL Remisol Heme Ni[place] Absolute 0.4 E9/L Normal 0.2 - 1.0 [...] (COVID-19) RNA QUEENIE+probe Ql (Unsp spec) Negative [employer] Other COVID/FLU/RSV RT-PCR Negative [facility] Other Quick Strepon 04-01-2023 S. pyogenes Org specific cx Ql (Throat) Negative [employer] Other Parchment Strep [employer] Other US Gallbladderon 07-23-2022 US Gallbladder Clinical [...] by Cornelius Hernandez on 07/23/2022 1043 Normal [facility] Kettle Chipper PAP ACOG PANEL 2: 21 to 29on 05-09-2022 . . Normal [facility] Comment on above: Performed By: #### 4 [id number] #### [facility] [address] [address] [address] Yovanny Villegas Age Gdln ACOG Testing - [facility] Comment on above: Performed By: #### 4 562398 #### [facility] [address] [place] [address] Dr. Yovanny Villegas DIAGNOSIS: Comment [facility] Comment on above: Result Comment: NEGA TIVE FOR INTRAEPITHELIAL LESION OR MALIGNANCY. Performed By: #### 4 476705 #### [facility] [address] [address] [address] Yovanny Villegas Methodology: Comment [facility] Comment on above: Result Comment: This liquid based ThinPrep(R) pap test was screened with the use of an image guided system. Performed By: #### 4 [id number] #### [facility] [address] [address] [address] Yovanny Villegas Note: Comment [facility] Comment on above: Result Comment: The Pap smear is a screening test designed to aid in the detection of premalignant and malignant conditions of the uterine cervix. It is not a diagnostic procedure and should not be used as the sole means of detecting cervical cancer. Both false-positive and false-negative reports do occur. . Performed By: #### 4 [id number] #### [facility] [address] [place] [address] Dr. Yovanny Villegas Performed by: Comment Normal [facility] Comment on above: Result Comment: Yanira Navarrete, Cardiac Exercise Specialist (ASCP) Performed By: #### 4 [id number] #### [facility] [address] [place] [address] Dr. Yovanny Villegas Reflex Criteria: Comment Normal [facility] Comment on above: Result Comment: The HPV DNA reflex criteria were not met with this specimen result therefore, no HPV testing was performed. . Performed By: #### 4 [id number] #### [facility] [address] [place] [address] Dr. Yovanny Villegas Specimen adequacy: Comment Normal [facility] Comment on above: Result Comment: Sati sfactory for evaluation. Endocervical and/or squamous metaplastic cells (endocervical component) are present. Performed By: #### 4 [id number] #### [facility] [address] [place] [address] Dr. Yovanny Villegas CHLAMYDIA/GONOCOCCUS QUEENIE ( AB/URINE/PAPon 07-28-2021 Chlamydia trachomatis, QUEENIE Negative Normal Negative [facility] Comment on above: Performed By: #### C T/NGNA #### [facility] [address] [place] [address] Dr. Yovanny Villegas Neisseria gonorrhoeae, QUEENIE Negative Normal Negative [facility] Comment on above: Performed By: #### C T/NGNA #### [facility] [address] [place] [address] Dr. Yovanny Villegas VAGINITIS/VAGINOSIS DNA PROB Anders 07-27-2021 Rickey species Negative Normal Negative [facility] Comment on above: Performed By: #### V AGINT #### [facility] [address] [place] [address] Dr. Yovanny iVllegas Gardnerella vaginalis Negative Normal Negative [facility] Comment on above: Performed By: #### V AGINT #### [facility] [address] [place] [address] Dr. Yovanny Villegas Trichomonas vaginalis Negative Normal Negative [facility] Comment on above: Performed By: #### V AGINT #### [facility] [address] [place] [address] Dr. Yovanny Villegas XR KNEE LEFT (3 [...] Deshaun Aguilar MD 05/24/21 Final result Normal [facility] No fracture or dislocation. [facility] EXAMINATION: THREE XRAY VIEWS OF THE LEFT KNEE 05/24/2021 8:48 pm COMPARISON: None. HISTORY: ORDERING SYSTEM PROVIDED HISTORY: pain eval occult bony injury TECHNOLOGIST PROVIDED HISTORY: pain eval occult bony injury FINDINGS: No fracture, dislocation, or focal osseous lesion is noted. No significant soft tissue abnormality seen. [facility] CONSOLIDATED Deshaun Aguilar MD - 05/24/2021 EXAMINATION: THREE XRAY VIEWS OF THE LEFT KNEE 05/24/2021 8:48 pm COMPARISON: None. HISTORY: ORDERING SYSTEM PROVIDED HISTORY: pain eval occult bony injury TECHNOLOGIST PROVIDED HISTORY: pain eval occult bony injury FINDINGS: No fracture, dislocation, or focal osseous lesion is noted. No significant soft tissue abnormality seen. IMPRESSION: No fracture or dislocation. [employer] Phone: Radiology Study observation (narrative) [employer] Phone: XR KNEE LEFT (3 VIEWS)Ordere d By: Deshuan Aguilar on 05-24-2021 [employer] Phone: COVID Quick Testingon 2021 Result Negative [employer] Other Quick Strepon 05-01-2021 S. pyogenes Org specific cx Ql (Throat) Positive [employer] Other Quick Strep [employer] Other COVID Quick Testingon 2021 Result Negative [employer] Other Quick Fluon 04-07-2021 FLUAV Ab CF (S) [Titer] Negative [employer] Other FLUBV Ab CF (S) [Titer] Negative [employer] Other XR SACRUM COCCYX (MIN 2 VIEW S)on 12-14-2020 XR SACRUM COCCYX (MIN 2 VIEWS) EXAMINATION: THREE XRAY VIEWS OF THE SACRUM/COCCYX 12/14/2020 3:10 am COMPARISON: None. HISTORY: ORDERING SYSTEM PROVIDED HISTORY: fall at work - hit [id number] TECHNOLOGIST PROVIDED HISTORY: fall at work - hit [id number] FINDINGS: The sacroiliac joints are normally aligned. The visualized portions the pelvis are. There is no fracture of the sacrum or coccyx evident. IMPRESSION: No acute osseous abnormality of the sacrum or coccyx evident. Interpreted by: Loc Oswald MD Signed by: Loc Oswald MD 12/14/20 Final result Normal [facility] XR SACRUM COCCYX (MIN 2 VIEW S)Ordered By: David Dominguez on 12-14-2020 No acute osseous abnormality of the sacrum or coccyx evident. [employer] Phone: EXAMINATION: THREE X RAY VIEWS OF THE SACRUM/COCCYX 12/14/2020 3:10 am COMPARISON: None. HISTORY: ORDERING SYSTEM PROVIDED HISTORY: fall at work - hit [id number] TECHNOLOGIST PROVIDED HISTORY: fall at work - hit [id number] FINDINGS: The sacroiliac joints are normally aligned. The visualized portions the pelvis are. There is no fracture of the sacrum or coccyx evident. [facility] Phone: [employer], [employer] Incoming Radiant Results From [employer] - 12/14/2020 3:24 AM EDT EXAMINATION: THREE XRAY VIEWS OF THE SACRUM/COCCYX 12/14/2020 3:10 am COMPARISON: None. HISTORY: ORDERING SYSTEM PROVIDED HISTORY: fall at work - hit [id number] TECHNOLOGIST PROVIDED HISTORY: fall at work - hit [id number] FINDINGS: The sacroiliac joints are normally aligned. The visualized portions the pelvis are. There is no fracture of the sacrum or coccyx evident. IMPRESSION: No acute osseous abnormality of the sacrum or coccyx evident. [employer] Phone: [facility] [employer] Phone: CT HEAD WO CONTRASTon 2020 CT [...] Maira Cruz MD 09/19/20 Final result Normal [facility] CT Head WO ContrastOrdered B y: Luis Carlos Fragoso on 09-19-[address] examination of the brain. [employer] Phone: EXAMINATION: CT OF T HE HEAD [...] of the visualized skull or soft tissues. [employer] Phone: [employer], Mhpn Incoming Radiant Results From [employer] - 09/19/2020 4:42 PM EDT EXAMINATION: CT [...] Unremarkable noncontrast CT examination of the brain. [employer] Phone: [employer] Phone: Coding Summaryon 10-27-2019 Coding Summary CODING DATE: 020 [facility] STATUS: Home PAYOR: [facility] ADMIT DX: REASON FOR VISIT DX: [...] Pablo Date Saved: 10/27/2019 03:10 pm Normal [facility] 2019 Novel Coronavirus (CoVI D-19), QUEENIE LCon 10-26-2019 SARS-CoV-2, QUEENIE (COVID-19) LC Not Detected Not Detected [facility] Comment on above: Order Comment: [id number] 1 Result Comment: This test was developed and its performance characteristics determined by [employer]. This test has not been FDA cleared [...] detected) result in this assay. Performed At: [facility] [address] [facility] [place] [id number] Ruba Washburn MD Ph:[phone] Performed By: #### 6 [id number] #### [facility] (DEFAULT) [address] [place] [address] Consent Formson 10-26-2019 Consent Forms [id number] TIFF Normal [facility] CNCOon 07-15-2017 CNCO Letter TextToll Free : [phone] [facility] [address] [place], [place] [address]Weawj: [phone]: [facility] [place], [place] [address]Ntgto: [phone]: [facility] [place], [place] [address]Hzllf: [phone]: Steve Pablo M.D., Ronaldo Marquez M.D.David Becerril M.D.Papito Sood D.O..Myriam Chaudhari M.D.Deandre Montoya M.D. Matthew Huff M.D.Date: July 15, 2017Re: Aleta GarayTO WHOM IT MAY CONCERN:She was seen in our office today.Sincerely,Katelin Cardona PSR(signed electronically to expedite mailing) Normal [facility] CNOVSPon 07-15-2017 CNOVSP Visit (SP) Office (HEMACL) BEVSYEDA MATTHEW STEVEN ([id number]) 89 FDate Time Provider Department07/15/17 3:15 PM [...] list. no changes .Referring Provider: DAVID BECERRIL [[id number]]Allergies As of Date: 07/15/2017(No Known Allergies)Date Reviewed: [...] by DAVID BECERRIL MD on 07/17/17 Normal [facility] PROGRESSon 07-15-2017 PROGRESS HNO ID: [id number]: David Escaleraervice: (none)Author Type: PhysicianType: Progress NotesFiled: [...] consider further testingAled Sandeep Becerril MD Normal [facility] Platelet Func Scrnon 018 COL/ADP Cartridge 85 CT (sec) Normal <118 [facility] Comment on above: Result Comment: Resu lts are reported as Closure Time (CT) in seconds. Performed By: #### P LTSCP ####[facility] [address] [place], [place] [phone] COL/EPI Cartridge 105 CT (sec) Normal <199 [facility] Comment on above: Result Comment: Resu lts are reported as Closure Time (CT) in seconds. Performed By: #### P LTSCP ####[facility] [address] [place], [place] [phone] Plt Func Scr Interp (NOTE) Normal [facility] Comment on above: Result Comment: Perf [...] bleeding disorder. Performed By: #### P LTSCP ####[facility] [address] [place], [place] [phone] Remote CBCDIF (for [facility] use o nly)on 05-15-2017 Abs Baso <0.03 Normal <0.11 [facility] Comment on above: Performed By: #### R CBCDF ####[address] [address] [place] [address] [phone] Abs Niobrara 0.53 k/uL Normal <0.87 [facility] Comment on above: Performed By: #### R CBCDF ####[address] [address] [address] [phone] Abs Neut 2.59 k/uL Normal 1.45-7.50 [facility] Comment on above: Performed By: #### R CBCDF ####[address] [address] [address] [phone] Basophils/100 WBC Auto (Bld) 0.4 % Normal [facility] Comment on above: Performed By: #### R CBCDF ####[address] [address] [address] [phone] DTYPE Auto Diff Normal [facility] Comment on above: Performed By: #### R CBCDF ####[address] [address] [address] [phone] Eosinophils 0.07 10*3/uL Normal <0.46 [facility] Comment on above: Performed By: #### R CBCDF ####[address] [address] [address] [phone] Eosinophils/100 leukocytes 1.5 % Normal [facility] Comment on above: Performed By: #### R CBCDF ####[address] [address] [address] [phone] Erythrocyte distribution width Auto Ratio (RBC) 12.2 % Normal 11.5-15.0 [facility] Comment on above: Performed By: #### R CBCDF ####[address] [address] [address] [phone] Erythrocytes (RBC) 4.15 10*6/uL Normal 3.90-5.20 [facility] [place] Comment on above: Performed By: #### R CBCDF ####[address] [address] [place], [place] [phone] Erythrocytes (RBC) 0.0 /100 WBC Normal 0 [facility] [place] Comment on above: Performed By: #### R CBCDF ####[address] [address] [place], [place] [phone] Erythrocytes (RBC) 10*6/uL Normal <0.01 [facility] Comment on above: Performed By: #### R CBCDF ####[address] [phone] Hematocrit (HCT) 39.4 % Normal 36.0-46.0 [facility] Comment on above: Performed By: #### R CBCDF ####[address] [phone] Hemoglobin mass conc (Bld) 12.8 g/dL Normal 11.5-15.5 [facility] Comment on above: Performed By: #### R CBCDF ####[address] [address] [place], [place] [phone] Lymphocytes 1.37 10*3/uL Normal 1.00-4.00 [facility] Comment on above: Performed By: #### R CBCDF ####[address] [address] [place], [place] [phone] Lymphocytes/100 leukocytes 29.9 % Normal [facility] Comment on above: Performed By: #### R CBCDF ####[address] [address] [place], [place] [phone] MCH 30.8 pG Normal 26.0-34.0 [facility] Comment on above: Performed By: #### R CBCDF ####[address] [place], [place] [phone] MCHC mass conc (RBC) 32.5 g/dL Normal 30.5-36.0 [facility] [place] Comment on above: Performed By: #### R CBCDF ####[address] [address] Guerrero[place], [place] [phone] MCV 94.9 fL Normal 80.0-100.0 [facility] Comment on above: Performed By: #### R CBCDF ####[address] [address] [place], [place] [phone] Monocytes/100 leukocytes 11.6 % Normal [facility] Comment on above: Performed By: #### R CBCDF ####[address] [address] [place], [place] [phone] Neutrophils/100 WBC Auto (Bld) 56.6 % Normal [facility] Comment on above: Performed By: #### R CBCDF ####[address] [phone] Platelet mean volume (PMV) 10.2 fL Normal 9.0-12.7 [facility] Comment on above: Performed By: #### R CBCDF ####[address] [address] [place], [place] [phone] Platelets 229 10*3/uL Normal 150-400 [facility] Comment on above: Performed By: #### R CBCDF ####[address] [address] [place], [place] [phone] WBC (Leukocytes) 4.58 10*3/uL Normal 3.70-11.00 [facility] Comment on above: Performed By: #### R CBCDF ####[address] [address] [place], [place] [phone] CNCOon 04-29-2017 CNCO Letter TextToll Free : [phone] [facility] - [address] [place], [place] [address]Ktqfe: [phone]: [facility] [address] [place], [place] [address]Evzkc: [phone]: [facility] [address] [place], [place] [address]Ffwyy: [phone]: Steve Pablo M.D., Ronaldo Marquez M.D.David Becerril M.D.Papito Sood D.O..Carin Hoover M.D. Matthew Huff M.D.Date: April 29, 2017Re: Aleta Elliott WHOM IT MAY CONCERN:She was seen in our office today.Sincerely,Karly Pizarro Psr(signed electronically to expedite mailing) Normal [facility] CNOVSPon 04-29-2017 CNOVSP Visit (SP) Office (HEMACL) BEVSYEDA MATTHEW JANESSA ([id number]) 89 FDate Time Provider Department04/29/17 2:30 PM [...] patientand her mother at length. Would check [id number] at this time, further testingbased on results.1. [...] (HCC) [D69.1]Order(s):PLATELET FUNCTION SCREEN [SQPLTSCP] Order #: [id number] FUTURE CBC + DIFF (FOR REMOTE [facility] USE) [SQRCBCDF] Order #: [id number] FUTUREDisposition: Return in about 6 weeks (around [...] by DAVID BECERRIL MD on 04/29/17 Normal [facility] PROGRESSon 04-29-2017 PROGRESS HNO ID: [id number]: David Escaleraervice: (none)Author Type: PhysicianType: Progress NotesFiled: [...] and her mother at length. Would check LPS499 at this time, furthertesting based on results.1. 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, choice of management likely to be influenced by history ofPOTSAlfred Sandeep Becerril MD Normal [facility] Vital Signs Date Time Vital Sign Value Performing Clinician Facility 12-23-2024 13:57-0400 Body mass index (BMI) [Ratio] 29.42 kg/m2 Luna Steen NP Work Phone: [facility] 12-23-2024 13:57-0400 Body weight 77.75 kg Luna Steen NP Work Phone: [facility] 12-23-2024 13:57-0400 Diastolic blood pressure 70 mm[Hg] Luna Steen NP Work Phone: [facility] 12-23-2024 13:57-0400 Systolic blood pressure 110 mm[Hg] Luna Steen NP Work Phone: [facility] 12-09-2024 14:07-0400 Body mass index (BMI) [Ratio] 28.84 kg/m2 Doc Thomas DO Work Phone: [facility] 12-09-2024 14:07-0400 Body weight 76.2 kg Doc William DO Work Phone: [facility] 12-09-2024 14:07-0400 Diastolic blood pressure 74 mm[Hg] Doc William DO Work Phone: [facility] 12-09-2024 14:07-0400 Systolic blood pressure 110 mm[Hg] Doc William DO Work Phone: [facility] 11-25-2024 14:04-0400 Body mass index (BMI) [Ratio] 29.95 kg/m2 Luna Enio SALES ENABLEMENT CONSULTANT Work Phone: [facility] 11-25-2024 14:04-0400 Body weight 79.15 kg Luna Enio SALES ENABLEMENT CONSULTANT Work Phone: [facility] 11-25-2024 14:04-0400 Diastolic blood pressure 60 mm[Hg] Luna Enio SALES ENABLEMENT CONSULTANT Work Phone: [facility] 11-25-2024 14:04-0400 Systolic blood pressure 110 mm[Hg] Luna Enio SALES ENABLEMENT CONSULTANT Work Phone: [facility] 10-28-2024 14:39-0400 Body mass index (BMI) [Ratio] 28.49 kg/m2 Pretty Chaidez PA Work Phone: [facility] 10-28-2024 14:39-0400 Body weight 75.3 kg Pretty Chaidez PA Work Phone: [facility] 10-28-2024 14:39-0400 Diastolic blood pressure 80 mm[Hg] Pretty Dm PA Work Phone: [facility] 10-28-2024 14:39-0400 Systolic blood pressure 130 mm[Hg] Pretty Chaidez PA Work Phone: [facility] 09-30-2024 15:34-0400 Body mass index (BMI) [Ratio] 28.29 kg/m2 Doc William DO Work Phone: [facility] 09-30-2024 15:34-0400 Body weight 74.75 kg Doc William DO Work Phone: [facility] 09-30-2024 15:34-0400 Diastolic blood pressure 72 mm[Hg] Doc William DO Work Phone: [facility] 09-30-2024 15:34-0400 Systolic blood pressure 110 mm[Hg] Doc William DO Work Phone: [facility] 08-05-2024 14:27-0400 Body mass index (BMI) [Ratio] 30.21 kg/m2 Doc William DO Work Phone: [facility] 08-05-2024 14:27-0400 Body weight 79.83 kg Doc William DO Work Phone: [facility] 08-05-2024 14:27-0400 Diastolic blood pressure 76 mm[Hg] Doc William DO Work Phone: [facility] 08-05-2024 14:27-0400 Systolic blood pressure 110 mm[Hg] Doc William DO Work Phone: [facility] 02-26-2024 15:41-0500 Body height 162.6 cm Myron Pocos DO Work Phone: [facility] 02-26-2024 15:41-0500 Body mass index (BMI) [Ratio] 30.21 kg/m2 Myron Pocos DO Work Phone: [facility] 02-26-2024 15:41-0500 Body weight 79.83 kg Myron Pocos DO Work Phone: [facility] 02-19-2024 15:26-0500 Body height 162.6 cm Rosalie Payne MD Work Phone: [facility] 02-19-2024 15:26-0500 Body mass index (BMI) [Ratio] 30.21 kg/m2 Rosalie Payne MD Work Phone: [facility] 02-19-2024 15:26-0500 Body weight 79.83 kg Rosalie Payne MD Work Phone: [facility] 02-19-2024 15:26-0500 Heart rate 88 /min Rosalie Payne MD Work Phone: [facility] 02-19-2024 15:26-0500 SaO2% (BldA) [Mass fraction] 98 % Rosalie Payne MD Work Phone: [facility] 12-09-2023 08:00-0400 Body height 162.6 cm Kelvin Schwartz DO Work Phone: [facility] 12-09-2023 08:00-0400 Body mass index (BMI) [Ratio] 30.9 kg/m2 Kelvin Schwartz DO Work Phone: [facility] 12-09-2023 08:00-0400 Body weight 81.65 kg Kelvin Schwartz DO Work Phone: [facility] 09-02-2023 14:25-0400 Diastolic blood pressure 73 mm[Hg] MD Rosalie Payne Work Phone: [facility] 09-02-2023 14:25-0400 Heart rate 80 /min MD Rosalie Payne Work Phone: [facility] 09-02-2023 14:25-0400 Respiratory rate 18 /min MD Rosalie Payne Work Phone: [facility] 09-02-2023 14:25-0400 SaO2% (BldA) [Mass fraction] 100 % MD Rosalie Payne Work Phone: [facility] 09-02-2023 14:25-0400 Systolic blood pressure 122 mm[Hg] MD Rosalie Payne Work Phone: [facility] 09-02-2023 11:31-0400 Body height 165.1 cm MD Rosalie Payne Work Phone: [facility] 09-02-2023 11:31-0400 Body temperature 98.4 [degF] MD Rosalie Payne Work Phone: [facility] 09-02-2023 11:31-0400 Body weight 77.11 kg MD Rosalie Payne Work Phone: [facility] 07-25-2023 14:21-0400 Body height 165.1 cm [facility] 07-25-2023 14:21-0400 Body mass index (BMI) [Ratio] 28.3 kg/m2 [facility] 07-25-2023 14:21-0400 Body weight 77.11 kg [facility] 07-25-2023 14:21-0400 Diastolic blood pressure 72 mm[Hg] [facility] 07-25-2023 14:21-0400 Heart rate 81 /min [facility] 07-25-2023 14:21-0400 Systolic blood pressure 111 mm[Hg] [facility] 04-03-2023 14:55-0500 Diastolic blood pressure 87 mm[Hg] Myron Pocos [facility] 04-03-2023 14:55-0500 Heart rate 105 /min Myron Pocos [facility] 04-03-2023 14:55-0500 Mean blood pressure 103 mm[Hg] Myron Pocos [facility] 04-03-2023 14:55-0500 Systolic blood pressure 136 mm[Hg] Myron Pocos [facility] 04-03-2023 14:53-0500 Heart rate 98 /min Myron Pocos [facility] 04-03-2023 14:53-0500 SaO2% (BldA) [Mass fraction] 99 % Myron Pocos [facility] 04-03-2023 14:53-0500 Diastolic blood pressure 96 mm[Hg] Myron Pocos [facility] 04-03-2023 14:53-0500 Mean blood pressure 112 mm[Hg] Myron Pocos [facility] 04-03-2023 14:53-0500 Systolic blood pressure 145 mm[Hg] Myron Marroquin [facility] 04-03-2023 14:52-0500 Respiratory rate 16 /min Myron Caroos [facility] 04-01-2023 10:45-0500 Body height 165.1 cm Destinee Kristine Other [employer] Other 04-01-2023 10:45-0500 Body mass index (BMI) [Ratio] 28.29 kg/m2 Destinee Kristine Other [employer] Other 04-01-2023 10:45-0500 Body temperature 98.1 [degF] Destinee Kristine Other [employer] Other 04-01-2023 10:45-0500 Body weight 77.11 kg Destinee Kristine Other [employer] Other 04-01-2023 10:45-0500 Respiratory rate 18 /min Destinee Kristine Other [employer] Other 04-01-2023 10:45-0500 SaO2% (BldA) [Mass fraction] 99 % Destinee Kristine Other [employer] Other 08-21-2021 11:25-0400 Body height 165.1 cm Carlie Thomas Other [employer] Other 08-21-2021 11:25-0400 Body mass index (BMI) [Ratio] 27.12 kg/m2 Carlie Thomas Other [employer] Other 08-21-2021 11:25-0400 Body temperature 98.6 [degF] Carlie Thomas Other [employer] Other 08-21-2021 11:25-0400 Body weight 73.94 kg Carlie Thomas Other [employer] Other 08-21-2021 11:25-0400 Respiratory rate 18 /min Carlie Thomas Other [employer] Other 08-21-2021 11:25-0400 SaO2% (BldA) [Mass fraction] 97 % Carlie Thomas Other [employer] Other 05-24-2021 20:36-0500 Body temperature 97.7 [degF] Artis Audinatettan DO Work Phone: [employer] 05-24-2021 20:36-0500 Diastolic blood pressure 81 mm[Hg] Artis Audinatettan DO Work Phone: [employer] 05-24-2021 20:36-0500 Heart rate 101 /min Artis Audinatettan DO Work Phone: [employer] 05-24-2021 20:36-0500 Respiratory rate 16 /min Artis Audinatettan DO Work Phone: [employer] 05-24-2021 20:36-0500 SaO2% (BldA) [Mass fraction] 97 % Artis Audinatettan DO Work Phone: [employer] 05-24-2021 20:36-0500 Systolic blood pressure 131 mm[Hg] Artis Audinatettan DO Work Phone: [employer] 05-11-2021 13:10-0500 Body height 165.1 cm Adriana Evangelista Other [employer] Other 05-11-2021 13:10-0500 Body mass index (BMI) [Ratio] 27.12 kg/m2 Adriana Evangelista Other [employer] Other 05-11-2021 13:10-0500 Body temperature 97.8 [degF] Adriana Evangelista Other [employer] Other 05-11-2021 13:10-0500 Body weight 73.94 kg Adriana Evangelista Other [employer] Other 05-11-2021 13:10-0500 Diastolic blood pressure 90 mm[Hg] Adriana Evangelista Other [employer] Other 05-11-2021 13:10-0500 Respiratory rate 18 /min Adriana Evangelista Other [employer] Other 05-11-2021 13:10-0500 SaO2% (BldA) [Mass fraction] 99 % Adriana Evangelista Other [employer] Other 05-11-2021 13:10-0500 Systolic blood pressure 129 mm[Hg] Adriana Evangelista Other [employer] Other 05-01-2021 11:40-0500 Body height 165.1 cm Carlie Martha Other [employer] Other 05-01-2021 11:40-0500 Body mass index (BMI) [Ratio] 26.62 kg/m2 Carlie Thomas Other [employer] Other 05-01-2021 11:40-0500 Body temperature 98.6 [degF] Carlie Martha Other [employer] Other 05-01-2021 11:40-0500 Body weight 72.58 kg Carlie Thomas Other [employer] Other 05-01-2021 11:40-0500 Respiratory rate 18 /min Carlie Thomas Other [employer] Other 05-01-2021 11:40-0500 SaO2% (BldA) [Mass fraction] 99 % Carlie Thomas Other [employer] Other 04-07-2021 12:00-0500 Body height 165.1 cm Sandeep Ramirez Other [employer] Other 04-07-2021 12:00-0500 Body mass index (BMI) [Ratio] 26.62 kg/m2 Sandeep Ramirez Other [employer] Other 04-07-2021 12:00-0500 Body temperature 97.6 [degF] Sandeep Ramirez Other [employer] Other 04-07-2021 12:00-0500 Body weight 72.58 kg Sandeep Ramirez Other [employer] Other 04-07-2021 12:00-0500 SaO2% (BldA) [Mass fraction] 98 % Sandeep Ramirez Other [employer] Other 12-13-2020 23:25-0400 Diastolic blood pressure 89 mm[Hg] David Dominguez MD Work Phone: [employer] Work Phone: 12-13-2020 23:25-0400 Systolic blood pressure 141 mm[Hg] David Dominguez MD Work Phone: [employer] Work Phone: 12-13-2020 23:23-0400 Body height 165.1 cm David Dominguez MD Work Phone: [employer] Work Phone: 12-13-2020 23:23-0400 Body mass index (BMI) [Ratio] 26.63 kg/m2 David Dominguez MD Work Phone: [employer] Work Phone: 12-13-2020 23:23-0400 Body temperature 98.29 [degF] David Dominguez MD Work Phone: [employer] Work Phone: 12-13-2020 23:23-0400 Body weight 72.58 kg David Dominguez MD Work Phone: [employer] Work Phone: 12-13-2020 23:23-0400 Heart rate 79 /min David Dominguez MD Work Phone: [employer] Work Phone: 12-13-2020 23:23-0400 Respiratory rate 14 /min David Dominguez MD Work Phone: [employer] Work Phone: 12-13-2020 23:23-0400 SaO2% (BldA) [Mass fraction] 99 % David Dominguez MD Work Phone: [employer] Work Phone: 09-19-2020 15:56-0400 Body temperature 98.6 [degF] [employer] Work Phone: 09-19-2020 15:56-0400 Diastolic blood pressure 90 mm[Hg] [employer] Work Phone: 09-19-2020 15:56-0400 Heart rate 103 /min [employer] Work Phone: 09-19-2020 15:56-0400 Respiratory rate 16 /min [employer] Phone: 09-19-2020 15:56-0400 SaO2% (BldA) [Mass fraction] 100 % [employer] Phone: 09-19-2020 15:56-0400 Systolic blood pressure 139 mm[Hg] [employer] Phone: Encounters Encounter Date Encounter Type Care Provider Facility Start: 12-26-2024 End: 12-26-2024 Clinisync Result Encounter Generic External Data Provider [facility] Unsolicited Start: 12-26-2024 End: 12-26-2024 Clinisync Result Encounter Generic External Data Provider [facility] External Department Unsolicited Start: 12-23-2024 End: 12-23-2024 Bamboo flowsheet Luna Steen SALES ENABLEMENT CONSULTANT Work Phone: [facility] Start: 12-23-2024 End: 12-23-2024 Bamboo flowsheet Luna Steen SALES ENABLEMENT CONSULTANT Work Phone: [facility] Start: 12-23-2024 End: 12-23-2024 flow sheet Luna Steen SALES ENABLEMENT CONSULTANT Work Phone: [facility] Comment on above: Third trimester preg shakila ([facility]); 31 weeks gestation of ([facility]) Start: 12-23-2024 End: 12-23-2024 ambulatory LUNA STEEN Not Available Start: 12-09-2024 End: 12-09-2024 Bamboo flowsheet Doc William DO Work Phone: [facility] Start: 12-09-2024 End: 12-09-2024 Bamboo flowsheet Doc William DO Work Phone: [facility] Start: 12-09-2024 End: 12-09-2024 flow sheet Doc William DO Work Phone: [facility] Comment on above: Third trimester preg shakila ([facility]); 29 weeks gestation of ([facility]); Yeast infection Start: 12-09-2024 End: 12-09-2024 ambulatory DOC THOMAS Not Available Start: 11-27-2024 End: 11-27-2024 ambulatory [facility] Start: 11-25-2024 End: 11-25-2024 Bamboo flowsheet Luna Steen SALES ENABLEMENT CONSULTANT Work Phone: [facility] Start: 11-25-2024 End: 11-25-2024 Bamboo flowsheet Luna Steen SALES ENABLEMENT CONSULTANT Work Phone: [facility] Start: 11-25-2024 End: 11-25-2024 flow sheet Luna Steen SALES ENABLEMENT CONSULTANT Work Phone: [facility] Comment on above: Second trimester pre gnancy ([facility]); 27 weeks gestation of ([facility]); 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 End: 11-25-2024 ambulatory [...] Comment on above: Second trimester pre gnancy ([facility]); 23 weeks gestation of ([facility]); Diabetes mellitus screening; STD exposure; Well woman [...] End: 10-30-2024 External Result Encounter Luna Steen SALES ENABLEMENT CONSULTANT Work Phone: [facility] Department Unsolicited Start: 10-06-2024 End: 10-06-2024 Clinisync Result Encounter Doc William DO Work Phone: [facility] Unsolicited Start: 10-06-2024 End: 10-06-2024 Clinisync Result Encounter Doc William DO Work Phone: [facility] Unsolicited Start: 09-30-2024 End: 09-30-2024 flow sheet Doc William DO Work Phone: [facility] Comment on above: 19 weeks gestation o f ([facility]); Second trimester ([facility]) Start: 09-30-2024 End: 09-30-2024 ambulatory DOC WILLIAM [...] pre gnancy ([facility]); 15 weeks gestation of ([facility]); Screening, , for anatomic survey ([facility]) Start: 09-02-2024 End: 09-02-2024 ambulatory PRETTY CHAIDZE Not Available Start: 09-02-2024 End: 09-02-2024 Bamboo [...] 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 ; 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 Start: 08-05-2024 End: 08-05-2024 ambulatory DOC WILLIAM [...] Start: 12-24-2023 End: 12-24-2023 ambulatory Nereyda Vieira PARAPROFESSIONAL AIDE TEACHER Work Phone: [facility] Comment on above: Acute pain of left k nee (Primary Dx); Status post arthroscopic reconstruction of anterior cruciate ligament of left knee using quadriceps tendon autograft Start: 12-24-2023 End: 12-24-2023 Bamboo flowsheet Nereyda Vieira PARAPROFESSIONAL AIDE TEACHER Work Phone: [facility] Start: 12-24-2023 End: 12-24-2023 Bamboo flowsheet Nereyda Vieira PARAPROFESSIONAL AIDE TEACHER Work Phone: [facility] Start: [...] Start: 12-17-2023 End: 12-17-2023 Bamboo flowsheet Pepe Yañze Lilo PT Work Phone: [facility] [...] Start: 12-03-2023 End: 12-03-2023 ambulatory Nereyda Vieira PARAPROFESSIONAL AIDE TEACHER Work Phone: [facility] Comment on above: Acute pain of left k nee (Primary Dx); Status post arthroscopic reconstruction of anterior cruciate ligament of left knee using quadriceps tendon autograft Start: 12-03-2023 End: 12-03-2023 Bamboo flowskeara Vieira PARAPROFESSIONAL AIDE TEACHER Work Phone: [facility] Start: 12-03-2023 End: 12-03-2023 Bamboo flowsheet Nereyda Vieira PARAPROFESSIONAL AIDE TEACHER Work Phone: [facility] Start: 11-19-2023 End: 11-19-2023 ambulatory Jennifer Dozire PARAPROFESSIONAL AIDE TEACHER [facility] Comment on above: Acute pain of left k nee (Primary Dx); Status post arthroscopic reconstruction of anterior cruciate ligament of left knee using quadriceps tendon autograft Start: 11-19-2023 End: 11-19-2023 Bamboo flowsheet Jennifer Dozier PARAPROFESSIONAL AIDE TEACHER [facility] Start: 11-19-2023 End: 11-19-2023 Bamboo anithaheet Jennifer Dozier PARAPROFESSIONAL AIDE TEACHER [facility] Start: 11-12-2023 End: 11-12-2023 ambulatory Nereyda Vieira PARAPROFESSIONAL AIDE TEACHER Work Phone: [facility] Comment on above: Acute pain of left k nee (Primary Dx); Status post arthroscopic reconstruction of anterior cruciate ligament of left knee using quadriceps tendon autograft Start: 11-12-2023 End: 11-12-2023 Bamboo gaby Vieira PARAPROFESSIONAL AIDE TEACHER Work Phone: [facility] Start: 11-12-2023 End: 11-12-2023 Bamboo gaby Vieira PARAPROFESSIONAL AIDE TEACHER Work Phone: [facility] Start: 09-02-2023 Non-patient / Non-visit MD Hector Payne Work Phone: [facility] G[facility]enterology Work Phone: Start: 09-02-2023 End: 09-02-2023 Admission to same day surgery center MD Rosalie Payne Work Phone: [facility] Work Phone: Start: 09-02-2023 End: 09-02-2023 ambulatory MD Rosalie Payne Work Phone: [facility] Work Phone: Start: 07-25-2023 End: 07-25-2023 ambulatory [facility] Work Phone: Start: 07-25-2023 End: 07-25-2023 Patient encounter procedure [facility] Gastroenterology Work Phone: Start: 04-23-2023 End: 04-23-2023 ambulatory Myron Marroquin Facility:[facility] Start: 04-22-2023 Chart abstracting Pepe Khan gs PT Work Phone: [facility] Start: 04-03-2023 End: 04-04-2023 ambulatory Myron Washburn Pocos Facility:[facility] Start: 04-03-2023 End: 04-03-2023 Patient encounter procedure Myron Marroquin [facility] Start: 04-01-2023 End: 04-01-2023 ambulatory Destinee Carmona Other [employer] Other Start: 04-01-2023 Office outpatient vi sit 15 minutes Destinee Carmona [facility] Start: 05-01-2022 End: 05-01-[address] DOC THOMAS . Facility: Start: 08-21-2021 End: 08-21-2021 ambulatory Carlie Thomas Other [employer] Other Start: 08-21-2021 Office outpatient vi sit 15 minutes Carlie Thomas [facility] Start: 07-26-2021 End: 07-26-[address] DOC THOMAS . Facility: Start: 05-24-2021 Emergency department patient visit ARTIS YODER [facility] Start: 05-24-2021 End: 05-24-2021 Emergency department patient visit Artis Yañez Carter DO Work Phone: [facility] ED Comment on above: Contusion of left kn ee, initial encounter (Primary Dx) Start: 05-11-2021 End: 05-11-2021 ambulatory Adriana Evangelista Other [employer] Other Start: 05-11-2021 Office outpatient vi sit 15 minutes Adriana Evangelista [facility] Start: 05-01-2021 (URG) Urgent Care Visit Carlie Jo Ann quintanilla [facility] Start: 05-01-2021 End: 05-01-2021 ambulatory Carlie Thomas Other [employer] Other Start: 04-07-2021 End: 04-07-2021 ambulatory Sandeep Ramirez Other [employer] Other Start: 04-07-2021 Office outpatient vi sit 15 minutes Sandeep Ramirez [facility] Start: 12-14-2020 End: 12-14-2020 Emergency department patient visit DAVID DOMINGUEZ [facility] Start: 12-14-2020 End: 12-14-2020 Emergency department patient visit David Dominguez MD Work Phone: [facility] Comment on above: Tailbone injury, ini tial encounter (Primary Dx) Start: 09-19-2020 End: 09-19-2020 Emergency department patient visit [facility] ED Comment on above: Closed head injury, initial encounter (Primary Dx) Start: 07-15-2017 End: 07-18-2017 Ambulatory DAVID BECERRIL [facility] Start: 05-15-2017 End: 05-15-2017 Ambulatory DAVID BECERRIL [facility] Start: 04-30-2017 End: 04-30-2017 Ambulatory DAVID BECERRIL [facility] Start: 04-29-2017 End: 04-30-2017 Ambulatory DAVID Sandeep BECERRIL [facility] Start: 03-13-2017 End: 03-14-2017 Ambulatory BLANCAWu PABLO Facility:[facility] Procedures Date Procedure Procedure Detail Performing Clinician Start: 12-26-2024 US OB GROWTH Generic External Data Provider Start: 12-26-2024 US OB BPP W NON-STRESS Generic Ext ernal Data Provider Start: 12-26-2024 ALL THYROID STIM HORMONE Doc William DO Work Phone: Start: 12-23-2024 Urnls dip stick/tablet rgnt non-auto w/o micrscp Luna Steen SALES ENABLEMENT CONSULTANT Work Phone: Start: 12-09-2024 Urnls dip stick/tablet rgnt non-auto w/o micrscp Doc William DO Work Phone: Start: 11-25-2024 Urnls dip stick/tablet rgnt non-auto w/o micrscp Luna Steen SALES ENABLEMENT CONSULTANT Work Phone: Start: 11-24-2024 CA ECHO DOPPLER COMPLETE Generic Externa l Data Provider Start: 11-12-2024 ECG 12-LEAD Generic External Data Provider Start: 11-03-2024 ALL CBC WITH AUTO DIFF Luna Steen SALES ENABLEMENT CONSULTANT Work Phone: Start: 10-28-2024 RECURRENT VAGINITIS (HTRX) Luna patel SALES ENABLEMENT CONSULTANT Work Phone: Start: 10-28-2024 Urnls dip stick/tablet rgnt non-auto w/o micrscp Luna Steen SALES ENABLEMENT CONSULTANT Work Phone: Start: 10-28-2024 IGP,APTIMA HPV,AGE GDLN [...] left knee using quadriceps tendon autograft Pepe [employer] PT Work Phone: History of reconstru ction of anterior cruciate ligament tear Status post arthroscopic reconstruction of anterior cruciate ligament of left knee using quadriceps tendon autograft Nereyda Vieira PARAPROFESSIONAL AIDE TEACHER Work Phone: History of reconstru ction of anterior cruciate ligament tear Status post arthroscopic reconstruction of anterior cruciate ligament of left knee using quadriceps tendon autograft Pepe [employer] PT Work Phone: History of reconstru ction of anterior cruciate ligament tear Status post arthroscopic reconstruction of anterior cruciate ligament of left knee using quadriceps tendon autograft Nereyda Vieira PARAPROFESSIONAL AIDE TEACHER Work Phone: History of reconstru ction of anterior cruciate ligament tear Status post arthroscopic reconstruction of anterior cruciate ligament of left knee using quadriceps tendon autograft Nereyda Vieira PARAPROFESSIONAL AIDE TEACHER Work Phone: History of reconstru ction of anterior cruciate ligament tear Status post arthroscopic reconstruction of anterior cruciate ligament of left knee using quadriceps tendon autograft Jenniefr Dozier PARAPROFESSIONAL AIDE TEACHER Laparoscopic excisio n of cyst of left ovary Myron Marroquin Plan of Treatment Date Care Activity Detail Author Start: 09-14-2025 Influenza vaccination Influenza Vacc ine (#1) [facility] Comment on above: Postponed from 11/16 (Patient Refused) Start: 01-05-2025 End: 01-05-2025 Patient encounter procedure 01/05/2025 1:00 PM EDT Routine [facility] [address] [place] [id number] Doc Thomas, DO [address] [place] [address] [facility] Start: 12-23-2024 End: 12-23-2024 Patient encounter procedure [facility] Comment on above: Arrived Start: 12-23-2024 End: 12-23-2024 Professional / ancillary services management 12/23/2024 1:30 PM EDT Ancillary Procedure [facility] [address] [place] [id number] [facility] Start: 12-09-2024 End: 12-09-2024 Patient encounter procedure [facility] Comment on above: Arrived Start: 11-25-2024 [...] Routine 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/25/2024, Expires: 03/27/2025 [facility] Comment on above: Expected: 11/25/2024 [...] mellitus screening Expected: 10/28/2024 (Approximate), Expires: 10/28/2025 [facility] Work Phone: Comment on above: Expected: 10/28/2024 (Approximate), Expires: 10/28/2025 Start: 10-28-2024 End: 10-28-2026 Echocardiogram 2D complete Echocardiogram 2D complete Echocardiography Routine Heart palpitations Expected: 10/28/2024 (Approximate), Expires: 10/28/2026 [facility] Comment on above: Expected: 10/28/2024 (Approximate), Expires: 10/28/2026 Start: 10-28-2024 End: 10-28-2025 Measurement of glucose 1 hour after glucose challenge for glucose tolerance test Glucose tolerance, 1 hour Lab Routine Diabetes mellitus screening Expected: 10/28/2024 (Approximate), Expires: 10/28/2025 [facility] Comment on above: Expected: 10/28/2024 (Approximate), Expires: 10/28/2025 Start: 09-30-2024 End: 09-30-2024 Patient encounter procedure 09/30/2024 3:40 PM EDT Routine [facility] [address] [place] [id number] Doc Thomas, DO [address] [place] [address] [facility] Start: 09-30-2024 End: 09-30-2024 Professional / ancillary services management 09/30/2024 2:30 PM EDT Ancillary Procedure [facility] [address] [id number] [facility] Start: 09-02-2024 End: 09-02-2024 Patient encounter procedure [facility] Comment on above: Arrived Start: 09-02-2024 End: 11-02-2024 Alpha fetoprotein, maternal Alpha fetoprotein, maternal Lab Routine Second trimester ([facility]) Expected: 09/02/2024 (Approximate), Expires: 11/02/2024 [facility] Comment on above: Expected: 09/02/2024 (Approximate), Expires: 11/02/2024 Start: 09-02-2024 End: 12-03-2024 US for US OB 14+ weeks anatomy scan Imaging Routine Screening, , for anatomic survey ([facility]) Expected: 09/02/2024, Expires: 12/03/2024 [facility] Work Phone: Comment on above: Expected: 09/02/2024 , Expires: 12/03/2024 Start: 08-05-2024 End: 08-05-2024 Patient encounter procedure [facility] Comment on above: Arrived Start: 07-16-2024 End: 07-16-2025 ABO/Rh ABO/Rh Lab Routine Missed menses , unspecified gestational age Expected: 07/16/2024 (Approximate), Expires: 07/16/2025 [facility] Comment on above: Expected: 07/16/2024 (Approximate), Expires: 07/16/2025 Start: 07-16-2024 End: 07-16-2025 Blood type and Indirect antibody screen panel - Blood Type and screen Lab Routine Missed menses , unspecified gestational age Expected: 07/16/2024 (Approximate), Expires: 07/16/2025 [facility] Comment on above: Expected: 07/16/2024 (Approximate), Expires: 07/16/2025 Start: 07-16-2024 End: 07-16-2025 Drugs of abuse panel - Urine by Screen method Rapid drug screen, urine Lab Routine , unspecified gestational age Encounter for supervision of normal first in first trimester Expected: 07/16/2024 (Approximate), Expires: 07/16/2025 [facility] Comment on above: Expected: 07/16/2024 (Approximate), Expires: 07/16/2025 Start: 07-10-2024 End: 10-09-2024 US Pelvis transvaginal US OB transvaginal Imaging Routine Missed menses Expected: 07/10/2024, Expires: 10/09/2024 [facility] Work Phone: Comment on above: Expected: 07/10/2024 , Expires: 10/09/2024 Start: 02-21-2024 End: 02-21-2024 Patient encounter procedure 02/21/2024 8:00 AM EST Office Visit [facility] [address] [place] [phone] Myron Marroquin, [address] [place] [id number] [facility] Start: 02-19-2024 End: 02-19-2024 Patient encounter procedure 02/19/2024 3:30 PM EST Office Visit [facility] [address] [place] [address] Rosalie Payne MD [address] [facility] [address] [place] [address] 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CMS/HCC); Chronic fatigue; Cigarette smoker; [...] Treatment [facility] [address] [place] [phone] Pepe Kirby, PT [address] [place] [address] [facility] Start: 01-14-2024 End: 01-14-2024 ambulatory 01/14/2024 3:30 PM EDT Treatment [facility] [address] [place] [phone] Nereyda Vieira, PARAPROFESSIONAL AIDE TEACHER [address] [place] [address] [facility] Start: 01-10-2024 End: 01-10-2024 ambulatory 01/10/2024 2:30 PM EDT Treatment [facility] [address] [place] [phone] Pepe Kirby, PT [address] [place] [address] [facility] Start: 01-07-2024 End: 01-07-2024 ambulatory 01/07/2024 3:30 PM EDT Treatment [facility] [address] [place] [phone] Pepe Kirby, PT [address] [place] [address] [facility] Start: 01-03-2024 End: 01-03-2024 ambulatory 01/03/2024 2:30 PM EDT Treatment [facility] [address] [place] [phone] Pepe Kirby, PT [address] [place] [address] [facility] Start: 12-31-2023 End: 12-31-2023 ambulatory 12/31/2023 3:30 PM EDT Treatment [facility] [address] [place] [phone] Jennifer Dozier, EUGENE [facility] Start: 12-27-2023 End: 12-27-2023 ambulatory [facility] Comment on above: Arrived Start: 12-24-2023 End: 12-24-2023 ambulatory 12/24/2023 3:00 PM EDT Treatment [facility] [address] [place] [phone] Dariel Nereyda, PARAPROFESSIONAL AIDE TEACHER [address] [place] [address] [facility] Start: 12-17-2023 End: 12-17-2023 ambulatory 12/17/2023 3:00 PM EDT Treatment [facility] [address] [place] [phone] Pepe Kirby, PT [address] [place] [address] [facility] Start: 12-09-2023 End: 12-09-2023 Patient encounter procedure [facility] Comment on above: Arrived Start: 12-03-2023 End: 12-03-2023 ambulatory 12/03/2023 3:30 PM EDT Treatment [facility] [address] [place] [phone] Nereyda Vieira, PARAPROFESSIONAL AIDE TEACHER [address] [place] [address] Arrived [facility] Comment on above: Arrived Start: 11-19-2023 End: 11-19-2023 ambulatory [facility] Comment on above: Acute pain of left k nee (Primary Dx); Status post arthroscopic reconstruction of anterior cruciate ligament of left knee using quadriceps tendon autograft Start: 11-17-2023 Influenza vaccination Influenza Vacc ine (#1) [facility] Start: 09-02-2023 [facility] Start: 05-07-2023 End: 05-07-2023 Patient encounter procedure 05/07/2023 11:10 AM EST Office Visit [facility] [address] [place] [phone] Doc Thomas DO [address] [facility] [place] [address] [facility] Start: 05-03-2023 End: 05-03-2023 Patient encounter procedure 05/03/2023 11:00 AM EST [facility] [address] [facility] [address] [place] [address] Myron Marroquin, DO [address] [place] [address] [facility] Start: 04-23-2023 End: 04-23-2023 Patient encounter procedure 04/23/2023 8:00 AM EST Procedure Visit [facility] EX[facility] DEP Vaniaanaly Myron Washburn, DO [address] [place] [address] [facility] Start: 04-22-2023 End: 04-22-2023 ambulatory 04/22/2023 2:30 PM EST Evaluation [facility] PT [address] [place] [phone] Pepe Kirby, PT [address] [place] [address] [facility] PT Start: 11-16-2022 Influenza vaccination Influenza Vacc ine (#1) [facility] Start: 08-30-2021 DTaP/Tdap/Td vaccine (5 - Td or Tdap) DTaP/Tdap/Td vaccine (5 - Td or Tdap) [facility] Start: 11-16-2020 Influenza vaccination Flu vaccine (# 1) [facility] Start: 06-09-2020 Screening for malign ant neoplasm of cervix [facility] Start: 06-09-2018 DTaP/Tdap/Td vaccine (1 - Tdap) DTaP/Tdap/Td vaccine (1 - Tdap) [facility] Work Phone: Start: 2015 Screening for Chlamy jasper trachomatis Chlamydia screen [facility] Start: 06-09-2014 HIV screening HIV screen [facility] Start: 11-23-2011 Varicella vaccine (2 of 2 - 2-dose childhood series) Varicella vaccine (2 of 2 - 2-dose childhood series) [facility] Start: 2011 COVID-19 Vaccine (1) COVID-19 Vaccin e (1) [employer] Work Phone: Start: 2011 [facility] Screen [facility] Start: 06-09-2010 HPV vaccine (1 - 2-d ose series) HPV vaccine (1 - 2-dose series) [employer] Start: 06-09-2004 COVID-19 Vaccine (1) COVID-19 Vaccin e (1) [employer] Start: 06-09-2000 Varicella vaccine (1 of 2 - 2-dose childhood series) Varicella vaccine (1 of 2 - 2-dose childhood series) [employer] Phone: Start: 1999 Hepatitis C screening Hepatitis C sc reen [facility] Bacteria identified in Urine by Culture Urine culture Microbiology Routine Missed menses Ordered: 07/16/2024 [facility] Comment on above: Ordered: 07/16/2024 CBC W Auto Different ial panel - Blood CBC and differential Lab Routine Missed menses , unspecified gestational age Ordered: 07/16/2024 [facility] Comment on above: Ordered: 07/16/2024 CHLAMYDIA TRACHOMATI S (GENITO/STI) CHLAMYDIA TRACHOMATIS (GENITO/STI) Lab Routine STD exposure Ordered: 10/28/2024 [facility] Comment on above: Ordered: 10/28/2024 Cytology Cervical or vaginal smear or scraping study Pap Smear Pathology and Cytology Routine Well woman exam with routine gynecological exam Ordered: 10/28/2024 [facility] Comment on above: Ordered: 10/28/2024 Hemoglobin A1c/Hemoglobin.total in Blood Hemoglobin A1c Lab Routine Missed menses , unspecified gestational age Ordered: 07/16/2024 [facility] Comment on above: Ordered: 07/16/2024 Hepatitis B virus surface Ag [Presence] in Serum or Plasma by Immunoassay Hepatitis B surface antigen Lab Routine Missed menses , unspecified gestational age Ordered: 07/16/2024 [facility] Comment on above: Ordered: 07/16/2024 Hepatitis C virus Ab [Presence] in Serum or Plasma by Immunoassay Hepatitis C antibody Lab Routine Missed menses , unspecified gestational age Ordered: 07/16/2024 [facility] Comment on above: Ordered: 07/16/2024 HIV-1/HIV-2 antigen/antibody combination immunoassay HIV-1 and HIV-2 antibodies Lab Routine Missed menses , unspecified gestational age Ordered: 07/16/2024 [facility] Comment on above: Ordered: 07/16/2024 Neisseria gonorrhoea e DNA [Presence] in Unspecified specimen by QUEENIE with probe detection Neisseria gonorrhea DNA probe, direct Lab Routine STD exposure Ordered: 10/28/2024 [facility] Comment on above: Ordered: 10/28/2024 Patient Education Hiatal hernia Hemorrhoids Gastritis Know your [facility] Work Phone: Reagin Ab [Presence] in Serum by RPR RPR Lab Routine Missed menses , unspecified gestational age Ordered: 07/16/2024 [facility] Comment on above: Ordered: 07/16/2024 Rubella antibody, IgG Rubella an tibody, IgG Lab Routine Missed menses , unspecified gestational age Ordered: 07/16/2024 [facility] Comment on above: Ordered: 07/16/2024 SURESWAB(R) ADVANCED VAGINITIS PLUS, TMA SURESWAB(R) ADVANCED VAGINITIS PLUS, TMA Pathology and Cytology Routine STD exposure Ordered: 10/28/2024 [facility] Comment on above: Ordered: 10/28/2024 End: 08-05-2025 Thyrotropin [Units/volume] in Serum or Plasma TSH Lab Routine 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CMS/HCC) [id number] for 6 Occurrences starting 08/05/2024 until 08/05/2025 [facility] Work Phone: Comment on above: [id number] for 6 Occurr ences starting 08/05/2024 until 08/05/2025 US Pelvis transvaginal US OB tra nsvaginal Imaging Routine Missed menses 07/16/2024 1:59 PM EDT [facility] Immunizations Immunization Date Immunization Notes Care Provider Zenon will 11-12-2016 hepatitis B vaccine, adult dosage Pepe Kirby PT Work Phone: [facility] 11-12-2016 meningococcal oligosaccharide (groups A, C, Y and W-135) diphtheria toxoid conjugate vaccine (MCV4O) Pepe Kirby PT Work Phone: [facility] 03-31-2012 hepatitis A vaccine, pediatric/adolescent dosage, 2 dose schedule Pepe Kirby PT Work Phone: [facility] 08-31-2011 hepatitis A vaccine, pediatric/adolescent dosage, 2 dose schedule Pepe Kirby PT Work Phone: [facility] 08-31-2011 tetanus toxoid, redu leyla diphtheria toxoid, and acellular pertussis vaccine, adsorbed Pepe Kirby PT Work Phone: [facility] 08-31-2011 varicella virus vaccine Pepe Kirby PT Work Phone: [facility] 09-11-2000 haemophilus influenz ae type b conjugate and Hepatitis B vaccine Pepe Kirby PT Work Phone: [facility] 09-11-2000 haemophilus influenz ae type b vaccine, HbOC conjugate Pepe Kirby PT Work Phone: [facility] 09-11-2000 hepatitis B vaccine, pediatric or pediatric/adolescent dosage Pepe Kirby PT Work Phone: [facility] 09-11-2000 measles, mumps and r ubella virus vaccine Pepe Kirby PT Work Phone: [facility] 09-11-2000 poliovirus vaccine, inactivated Pepe Kirby PT Work Phone: [facility] 03-26-2000 DTaP-Haemophilus influenzae type b conjugate vaccine Pepe Kirby PT Work Phone: [facility] 03-26-2000 pneumococcal conjuga te vaccine, 7 valent Pepe Kirby PT Work Phone: [facility] 1999 diphtheria, tetanus toxoids and acellular pertussis vaccine, Haemophilus influenzae type b conjugate, and poliovirus vaccine, inactivated ([id number]-Qjk-[id number]) Pepe Kirby PT Work Phone: [facility] 1999 diphtheria, tetanus toxoids and acellular pertussis vaccine, Haemophilus influenzae type b conjugate, and poliovirus vaccine, inactivated ([id number]) Pepe Kirby PT Work Phone: [facility] 1999 hepatitis B vaccine, pediatric or pediatric/adolescent dosage Pepe Kirby PT Work Phone: [facility] 1999 hepatitis B vaccine, pediatric or pediatric/adolescent dosage Pepe Kirby PT Work Phone: [facility] Payers Date Payer Category Payer Self-pay 2023 Unknown [id number] 2022 Unknown [id number] 2022 Blue Cross Blue Shield 1.2.8 [id number] 2022 Unknown [id number] 2020 Unknown [id number] 2006 Private Health Insurance [id number] 1999 Unknown [id number] 2.16.8 40.1.195006.3.579.2.173 1999 Unknown [id number] 2.16.8 40.1.986424.3.579.2.173 1999 Unknown [id number] 2.16.8 40.1.077870.3.579.2.173 1999 Unknown [id number] 2.16.84 0.1.154157.3.579.2.593 1999 Unknown [id number] 2.16.84 0.1.394107.3.579.2.593 1999 Unknown [id number] 2.16.8 40.1.148328.3.579.2.727 1999 Unknown [id number] 2.16.8 40.1.103820.3.579.2.727 1999 Unknown [id number] 2.16.8 40.1.201345.3.579.2.9 1999 Unknown [id number] 2.16.8 40.1.215601.3.579.2.9 1999 Unknown [id number] 2.16.8 40.1.232668.3.579.2.9 1999 Unknown [id number] 2.16.8 40.1.739082.3.579.2.9 1999 Unknown [id number] 2.16.8 40.1.961545.3.579.2.1258 1999 Unknown [id number] 2.16.8 40.1.261604.3.579.2.1258 1999 Unknown [id number] 2.16.8 40.1.059826.3.579.2.1258 1999 Unknown [id number] 2.16.84 0.1.027677.3.579.2.1259 1999 Unknown [id number] 2.16.84 0.1.124468.3.579.2.9 1999 Unknown [id number] 2.16.84 0.1.335386.3.579.2.9 1999 Unknown [id number] 2.16.84 0.1.837264.3.579.2.9 1999 Unknown [id number] 2.16.84 0.1.981089.3.579.2.9 1999 Unknown [id number] 2.16.84 0.1.530075.3.579.2.1259 1959 Unknown [id number] 2.1 6.840.1.268976.19 1959 Unknown [id number] Blue Cross Blue Shield GTFAN [id number] 2.16.840.1.543180.19 Unknown [id number] 2.16.8 40.1.341102.3.579.2.531 Social History Date Type Detail Facility Start: 09-19-2020 End: 12-14-2020 Tobacco smoking status ILIS Never smoker [employer] Phone: Start: 09-19-2020 End: 05-10-2023 Tobacco use and exposure Never used [employer] Start: 1999 Sex Assigned At Not on file [employer] Phone: Exposure to SARS-CoV -2 (event) Not sure [facility] Start: 12-14-2020 End: 05-24-2021 Alcohol intake Current drinker of alcohol (finding) [employer] Phone: Start: 12-14-2020 Alcohol Comment Rare [employer] Phone: Start: 12-11-2022 End: 02-26-2024 Sex Assigned At [facility] Tobacco Current vaping o r e-cigarette use Smokeless Tobacco Use:. Vaping [facility] Tobacco smoking status No Smokin g Status Entered [facility] Start: 02-09-2023 End: 05-10-2023 Tobacco smoking status [facility] Occasional tobacco smoker [facility] Start: 04-15-2023 End: 12-23-2024 Alcohol intake Ex-drinker (finding) [facility] Start: 12-11-2022 End: 02-26-2024 History [...] 09-02-2023 Tobacco smoking status [facility] Smoker (finding) [facility] History of tobacco use Cigarette Smoker [facility] Start: 05-30-2024 [facility] Goals Date Patient Goal Desired Activity /State Functional Status Date Assessment Result Facility 04-03-2023 Functional Status No [facility] Clinical Notes 04-07-2021 to 12-23-2024 Luna Steen [...] nursing note reviewed. Exam conducted with a head automatic sawyer present. Vitals: Estimated body mass index is 29.42 kg/m as calculated from the following: Height as of 02/26/24: 5' 4 . Weight as of this encounter: 171 lb 6.4 oz. BP: 110/70 Patient's last menstrual period was 05/16/2024. ASSESSMENT & PLAN ICD-10-CM 1. Third trimester ([facility]) Z34.93 2. 31 weeks gestation of ([facility]) Z3A.31 POCT urinalysis dipstick manually resulted Return [...] Luna Steen NP documented in this encounter [facility] 12-09-2024 History of Present illness Narrative Reason [...] Left 2019 OVARIAN CYST REMOVAL Left 05/20/2020 [facility] William VAGINAL DELIVERY REVIEW OF SYSTEMS Review [...] nursing note reviewed. Exam conducted with a head automatic sawyer present. Vitals: Estimated body mass index is 28.84 kg/m as calculated from the following: Height as of 02/26/24: 5' 4 . Weight as of this encounter: 168 lb. BP: 110/74 Patient's last menstrual period was 05/16/2024. ASSESSMENT & PLAN ICD-10-CM 1. Third trimester ([facility]) Z34.93 POCT urinalysis dipstick manually resulted 2. 29 weeks gestation of ([facility]) Z3A.29 Return OB: Patient presents today for [...] Doc Thomas DO documented in this encounter [facility] 11-27-2024 Note [facility] Note Reason for cardiology consult: Cardiogenic syncope Chief Complaint: Syncope HPI: summer Matthew is a 24 y.o. female with history of neurocardiogenic syncope diagnosed about 6 years ago, Gabby disease, chronic fatigue, overweight, anxiety/depression Patient is now 28 weeks . She reports that she was diagnosed with neurocardiogenic syncope about 6 years ago by [facility] cardiology and she was on medications. [...] , Rfl: no.37/i (more content not included)... [facility] 11-25-2024 History of Present illness Narrative [...] Left 2019 OVARIAN CYST REMOVAL Left 05/20/2020 [facility] William VAGINAL DELIVERY REVIEW OF SYSTEMS Review [...] nursing note reviewed. Exam conducted with a head automatic sawyer present. Vitals: Estimated body mass index is 29.95 kg/m as calculated from the following: Height as of 24: 5' 4 . Weight as of this encounter: 174 lb 8 oz. BP: 110/60 Patient's last menstrual period was 05/16/2024. ASSESSMENT & PLAN ICD-10-CM 1. Second trimester ([facility]) Z34.92 POCT urinalysis dipstick manually resulted 2. 27 weeks gestation of ([facility]) Z3A.27 3. 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 Exam conducted with a head automatic sawyer present. Vitals: Estimated body mass index is 28.49 kg/m as calculated from the following: Height as of 02/26/24: 5' 4 . Weight as of this encounter: 166 lb. BP: 130/80 Patient's last menstrual period was 05/16/2024. ASSESSMENT & PLAN ICD-10-CM 1. Second trimester ([facility]) Z34.92 POCT urinalysis dipstick manually resulted 2. 23 weeks gestation of ([facility]) Z3A.23 3. Diabetes mellitus screening Z13.1 CBC [...] and prior work up for palpitations with [facility]. Plan will be to continue TSH every 4 weeks, EKG and cardiac Echo and follow up with [facility] and a referral will be made she declined Metoprolol at this time. Patient is to return to office in 4 week for routine OB appointment. Documented by Luna Steen NP on behalf of: Luna Steen NP documented in this encounter [facility] 09-30-2024 History of Present illness Narrative Reason [...] Left 2019 OVARIAN CYST REMOVAL Left 05/20/2020 [facility] William VAGINAL DELIVERY REVIEW OF SYSTEMS Review [...] nursing note reviewed. Exam conducted with a head automatic sawyer present. Vitals: Estimated body mass index is 28.29 kg/m as calculated from the following: Height as of 24: 5' 4 . Weight as of this encounter: 164 lb 12.8 oz. BP: 110/72 Patient's last menstrual period was 05/16/2024. ASSESSMENT & PLAN ICD-10-CM 1. 19 weeks gestation of ([facility]) Z3A.19 POCT urinalysis dipstick manually resulted 2. Second trimester ([facility]) Z34.92 POCT urinalysis dipstick manually resulted Patient [...] Doc Thomas DO documented in this encounter [facility] 09-02-2024 History of Present illness Narrative Reason [...] Left 2019 OVARIAN CYST REMOVAL Left 05/20/2020 [facility] William VAGINAL DELIVERY REVIEW OF SYSTEMS Review [...] nursing note reviewed. Exam conducted with a head automatic sawyer present. Vitals: Estimated body mass index is 30.21 kg/m as calculated from the following: Height as of 02/26/24: 5' 4 . Weight as of 08/05/24: 176 lb. BP: Patient's last menstrual period was 05/16/2024. ASSESSMENT & PLAN ICD-10-CM 1. Second trimester ([facility]) Z34.92 Alpha fetoprotein, maternal Alpha fetoprotein, maternal POCT urinalysis dipstick manually resulted 2. 15 weeks gestation of ([facility]) Z3A.15 3. Screening, , for anatomic survey ([facility]) Z36.89 US OB 14+ weeks anatomy scan [...] of: ADAN Gonzalez documented in this encounter [facility] 08-05-2024 History of Present illness Narrative Reason [...] Left 2019 OVARIAN CYST REMOVAL Left 05/20/2020 [facility] William VAGINAL DELIVERY REVIEW OF SYSTEMS Review [...] nursing note reviewed. Exam conducted with a head automatic sawyer present. Vitals: Estimated body mass index is [...] or undercooked meat, and stay away from formerly [facility]. Patient has been consulted regarding any [...] Doc Thomas DO documented in this encounter [facility] 07-16-2024 History of Present illness Narrative Reason [...] or undercooked meat, and stay away from formerly [facility]. Patient has also been advised to [...] Aliya Aguilar LPN documented in this encounter [facility] 02-26-2024 History of Present illness Narrative Images [...] Left 2019 OVARIAN CYST REMOVAL Left 05/20/2020 [facility] William VAGINAL DELIVERY FAMILY HISTORY: Family History [...] 7:42 AM EST documented in this encounter [facility] 02-19-2024 History of Present illness Narrative Images [...] Iron and TIBC documented in this encounter [facility] 12-27-2023 History of Present illness Narrative Physical [...] at this time. documented in this encounter [facility] 12-17-2023 History of Present illness Narrative Physical [...] from IE 05/10/23 Gait: mod ind with toañ crutches PWB amb over flexed knee ,foot [...] Continue as tolerated. documented in this encounter [facility] 12-09-2023 History of Present illness Narrative Images [...] Left 2019 OVARIAN CYST REMOVAL Left 05/20/2020 [facility] William VAGINAL DELIVERY FAMILY HISTORY: Family History [...] harvest. Joint spaces preserved. MRI left knee [facility] 10/18/2023 report and images reviewed. ACL [...] note was created using voice recognition through [employer] artificial intelligence. documented in this encounter [facility] 09-02-2023 Procedure note [facility] 09-02-2023 History and physical note Note Date/Time September 02, 2023 11:40am [facility] [address] [place] [address] Gastroenterology H&P Signed Patient: Aleta Castro MR#: [id number] : 2000 Acct:[id number] Age/Sex: 23 / F Adm Date: 4 Loc: Room: Type: [facility] Attending Dr: Marcelle Patel DO [...] signed by Marcelle Patel DO> 09/02/23 1140 [facility] Work Phone: [phone] 515-551306-17-2024 [facility] [id number]* Encounter Date Diagnosis [...] follow up with PCP if symptoms persist. [employer] Other 06-06-2022 Evaluation note* Encounter Date Diagnosis [...] or concerns Aug, Bronchitis (ICD-10 - J40) [employer] Other 03-09-2022 Hospital Discharge instructions* Instructions* Artis [...] be sent through Care Everywhere. * Contusion (Fijian) * Knee Pain or Injury (Fijian) * RICE: General Info (Fijian) [facility] Phone: 1(454) 646-854802-24-2022 Evaluation note* Encounter Date Diagnosis Assessment Notes Treatment Notes Treatment Clinical Notes Apr, Oral thrush (ICD-10 - B37.0) Use medication as directed. Change toothbrush. Follow up with PCP if symptoms do not improve with treatment [employer] Other 02-14-2022 Evaluation note* Encounter Date Diagnosis [...] Patient care instructions given in writting by [employer] [facility] document. [employer] Other 01-21-2022 Evaluation note* Encounter Date Diagnosis [...] Patient care instructions given in writting by [employer] [facility] document. [employer] Other Evaluation + Plan note Future Appointments Appointment Date:04/23/2023 07:30:00 AM Scheduled Provider: [facility] Closed head injury, initial encounter- Primary documented in this encounter [employer] Phone: [email or web address] note* Diagnosis Tailbone injury, initial encounter- Primary documented in this encounter [employer] Phone: [email or web address] note* Diagnosis Contusion of left knee, initial encounter- Primary documented in this encounter [employer] Phone: evaltclgun note* Diagnosis Onset Date Resolution Status Diarrhea acute GERD (gastroesophageal reflux disease) acute Lower abdominal pain acute Nausea acute [facility] Work Phone: Evaluation note* Diagnosis Onset Date Resolution Status Diarrhea acute Dysphagia acute GERD (gastroesophageal reflux disease) acute Lower abdominal pain acute Nausea acute [facility] Work Phone: Evaluation note* Diagnosis Acute pain of left knee- Primary Status post arthroscopic reconstruction of anterior cruciate ligament of left knee using quadriceps tendon autograft documented in this encounter [facility] HealthcareEvaluation note* Diagnosis Acute pain of left knee- Primary Status post arthroscopic reconstruction of anterior cruciate ligament of left knee using quadriceps tendon autograft documented in this encounter [facility] HealthcareEvaluation note* Diagnosis Acute pain of left knee- Primary Status post arthroscopic reconstruction of anterior cruciate ligament of left knee using quadriceps tendon autograft documented in this encounter [facility] HealthcareEvaluation note* Diagnosis Subclinical hypothyroidism (CMS/HCC)- Primary Other specified acquired hypothyroidism 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CMS/HCC) Chronic lymphocytic thyroiditis Cigarette smoker Tobacco use disorder Non morbid obesity due to excess calories Postural orthostatic tachycardia syndrome (POTS) Abnormal bleeding in menstrual cycle documented in this encounter [facility] HealthcareEvaluation note* Diagnosis S/P reconstruction of ACL of left knee using bone-patellar tendon-bone autograft- Primary documented in this encounter [facility] HealthcareEvaluation note* Diagnosis Left knee injury, initial encounter- Primary documented in this encounter [facility] HealthcareEvaluation note* Diagnosis Missed menses , unspecified gestational age Encounter for supervision of normal first in first trimester Nausea/vomiting in Unspecified vomiting of , unspecified as to episode of care Cluster headache, not intractable, unspecified chronicity pattern documented in this encounter [facility]* Diagnosis First trimester state, incidental 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[facility]HCC) Chronic lymphocytic thyroiditis documented in this encounter [facility]* Diagnosis Second trimester (HHS-HCC) state, incidental 15 weeks gestation of (HHS-HCC) Screening, , for anatomic survey ([facility]) Encounter for anatomic survey documented in this [...] History left ovarian cyst Hospitalization History child [employer] Other Hospital course Narrative No data available for this section [facility] Attachments The following attachments cannot be sent through Care Everywhere. * Head Injury: Closed: General Info (Fijian) [facility]: Hospital Discharge instructions* Attachments The following attachments cannot be sent through Care Everywhere. * Coccyx Injury (Fijian) [facility] Phone: Hospital Discharge instructions No data available for this section [facility] No data available for this section [facility] Summary Purpose Family History Relationship Condition Age [...] section and content) DATE CREATED AUTHOR 09/05/2017 [facility] DATE CREATED AUTHOR AUTHOR'S ORGANIZ ATION 09/05/2017 [facility] DATE CREATED AUTHOR AUTHOR'S ORGANIZ ATION 10/28/2019 [facility] DATE CREATED AUTHOR AUTHOR'S ORGANIZ ATION 05/26/2021 [facility] DATE CREATED AUTHOR AUTHOR'S ORGANIZ ATION 05/10/2022 [facility] DATE CREATED AUTHOR AUTHOR'S ORGANIZ ATION 07/24/2022 [facility] dical Specialist DATE CREATED AUTHOR AUTHOR'S ORGANIZ ATION 05/15/2023 [facility] DATE CREATED AUTHOR AUTHOR'S ORGANIZ ATION 09/11/2023 [facility] DATE CREATED AUTHOR AUTHOR'S ORGANIZ ATION 02/08/2024 [facility] DATE CREATED AUTHOR AUTHOR'S ORGANIZ ATION 11/30/2024 [facility] DATE CREATED AUTHOR AUTHOR'S ORGANIZ ATION 12/26/2024 [facility] dical Specialists EPIC Reason for Visit (unrecogniz ed section and content) Reason Comments Head Injury headbutted repeated 10 times today around 1255 Headache Nausea Reason Comments Other Pt had a chair pulle d out from under her while at work. Pt fell onto hard ground. Pain in lower back. Reason Comments Knee Pain left knee, was kicke d by resident at [facility] at approx 1930 Specialty Diagnoses / Procedures Referred By Neo t Referred To Contact Physical Therapy Diagnoses Other specified postprocedural states Personal history of other diseases of the musculoskeletal system and connective tissue Procedures MI THERAPEUTIC PX 1/ AREAS EACH 15 MIN EXERCISES Myron Marroquin, DO [address] [place], [place] Pepe Kirby, PT [address] [place] [address] Referral ID Status Reason Start Date Expiration Date V isits Requested Visits Authorized [id number] Authorized 09/10/2023 03/08/2024 99 99 Reason Comments [...] Care Teams (unrecognized sec tion and content) Car Pre Cooler Relationship Specialty Start Date End Date Rosalie Payne MD [address] [place] [address] PCP - General 05/24/21 Car Pre Cooler Relationship Specialty Start Date End Date Rosalie Payne MD [address] [place] [address] PCP - General Family Medicine 07/24/22 Team [...] Other Provider Active Start: September 02, 2023 Car Pre Cooler Relationship Specialty Start Date End Date Rosalie Payne MD [address] [place] [address] (Fax) PCP - General Family Medicine 07/24/22 Car Pre Cooler Relationship Specialty Start Date End Date Rosalie Payne MD [address] [place] [address] (Fax) PCP - General Family Medicine 07/24/22 Car Pre Cooler Relationship Specialty Start Date End Date Rosalie Payne MD [address] [facility] [place] [address] (Fax) PCP - General Family Medicine 07/24/22 Car Pre Cooler Relationship Specialty Start Date End Date Rosalie Payne MD [address] [facility] [place] [address] (Fax) PCP - General Family Medicine 07/24/22 Car Pre Cooler Relationship Specialty Start Date End Date Rosalie Payne MD [address] [place] [phone] (Fax) PCP - General Family Medicine 07/24/22 Car Pre Cooler Relationship Specialty Start Date End Date Rosalie Payne MD [address] [facility] [place] [address] (Fax) PCP - General Family Medicine 07/24/22 Car Pre Cooler Relationship Specialty Start Date End Date Rosalie Payne MD [address] [place] [address] (Fax) PCP - General Family Medicine 07/24/22 Car Pre Cooler Relationship Specialty Start Date End Date Rosalie Payne MD [address] [place] [address] (Fax) PCP - General Family Medicine 07/24/22 Car Pre Cooler Relationship Specialty Start Date End Date Rosalie Payne MD [address] [facility] [place] [address] (Fax) PCP - General Family Medicine 07/24/22 Car Pre Cooler Relationship Specialty Start Date End Date Rosalie aPyne MD [address] [facility] [place] [address] (Fax) PCP - General Family Medicine 07/24/22 Car Pre Cooler Relationship Specialty Start Date End Date Rosalie Payne MD [address] [place] [address] (Fax) PCP - General Family Medicine 07/24/22 Car Pre Cooler Relationship Specialty Start Date End Date Rosalie Payne MD [address] [place] [address] (Fax) PCP - General Family Medicine 07/24/22 Rosalie Payne MD [address] [place] [address] (Fax) PCP - [place] [employer] 06/16/20 Car Pre Cooler Relationship Specialty Start Date End Date Rosalie Payne MD [address] [place] [address] (Fax) PCP - General Family Medicine 07/24/22 Rosalie Payne MD [address] [place] [address] (Fax) PCP - [place] [employer] 06/16/20 Car Pre Cooler Relationship Specialty Start Date End Date Rosalie Pyane MD [address] [place] [address] (Fax) PCP - General Family Medicine 07/24/22 Rosalie Payne MD [address] [place] [address] (Fax) PCP - [place] [employer] 06/16/20 Car Pre Cooler Relationship Specialty Start Date End Date Rosalie Payne MD [address] [place] [address] (Fax) PCP - General Family Medicine 07/24/22 Rosalie Payne MD [address] [place] [address] (Fax) PCP - [place] [employer] 06/16/20 Car Pre Cooler Relationship Specialty Start Date End Date Rosalie Payne MD [address] [place] [address] (Fax) PCP - General Family Medicine 07/24/22 Rosalie Payne MD [address] [place] [address] (Fax) PCP - [place] [employer] 06/16/20 Car Pre Cooler Relationship Specialty Start Date End Date Rosalie Payne MD [address] [place] [address] (Fax) PCP - General Family Medicine 07/24/22 Rosalie Payne MD [address] [place] [address] (Fax) PCP - [place] [employer] 06/16/20 Car Pre Cooler Relationship Specialty Start Date End Date Rosalie Payne MD [address] [place] [address] (Fax) PCP - General Family Medicine 07/24/22 Rosalie Payne MD [address] [place] [address] (Fax) PCP - [place] [employer] 06/16/20 Car Pre Cooler Relationship Specialty Start Date End Date Rosalie Payne MD [address] [place] [address] (Fax) PCP - General Family Medicine 07/24/22 Rosalie Payne MD [address] [place] [address] (Fax) PCP - [place] [employer] 06/16/20 Car Pre Cooler Relationship Specialty Start Date End Date Rosalie Payne MD [address] [place] [address] (Fax) PCP - General Family Medicine 07/24/22 Rosalie Payne MD [address] [place] [address] (Fax) PCP - [place] [employer] 06/16/20 Car Pre Cooler Relationship Specialty Start Date End Date Rosalie Payne MD [address] [place] [address] (Fax) PCP - General Family Medicine 07/24/22 Rosalie Payne MD [address] [place] [address] (Fax) PCP - [place] [employer] 06/16/20 Car Pre Cooler Relationship Specialty Start Date End Date Rosalie Payne MD [address] [place] [address] (Fax) PCP - General Family Medicine 07/24/22 Rosalie Payne MD [address] [facility] [place] [address] PCP [facility] 06/16/20 Car Pre Cooler Relationship Specialty Start Date End Date Rosalie Payne MD [address] [facility] [place] [address] PCP - General Family Medicine 07/24/22 Rosalie Payne MD [address] [facility] [place] [address] PCP [facility] 06/16/20 Goals (unrecognized section and content) [...] BE BASED ON THE PRIMARY CLINICAL RECORDS. [employer] [facility]. provides no warranty or guarantee of the accuracy or completeness of information in this document.
--- OUTSIDE RECORDS SUMMARY | 2025-01-02 08:58 | XMS_ITS | Encounter Summary ---
Author Organization [facility] Address [address] [place] [address] Care Team Providers Care Editor Dictionary Name Role Phone Danny Schuler MD Primary Care Provider Danny Schuler MD Unavailable [phone] Reason for Visit * Reason Onset Date Comments Med Refill 12/23/2024 Encounter Details Date Type Department Care Team (Late st Contact Info) Description 12/23/2024 Refill [facility] [address] [place] [address] Azalea Schmitz MA [address] [place] [address] Nausea and vomiting in ([facility]) Social History Tobacco Use Types Packs/Day Years [...] How often do you attend chur or uatsdin services? More than 4 times per year 12/11/2022 Do you belong to any clubs o r organizations such as jehovah's witness groups, unions, fraternal or athletic groups, or [...] heating? Somewhat hard 12/11/2022 [facility] - Occupational Stress Questionnaire Answer [...] PM EDT Routine [facility] [address] [place] [id number] Doc Thomas DO [address] [place] [address] documented as of this encounter Visit Diagnoses Diagnosis Nausea and vomiting in ([facility]) Unspecified vomiting of , unspecified as to episode of care documented in this encounter Care Teams Editor Dictionary Relationship Specialty Start Date End Date Danny Schuler MD [address] [address] PCP - General Family Medicine 07/24/22 Danny Schuler MD [address] [address] PCP - [employer] [employer] 06/16/20 documented as of this encounter
--- OUTSIDE RECORDS SUMMARY | 2025-01-02 08:58 | XMS_ITS | Encounter Summary ---
Author Organization [facility] Address [address] [place] [address] Care Team Providers Care Case Assistant Name Role Phone Danny Schuler MD Primary Care Provider Danny Schuler MD Unavailable [phone] Encounter Details Date Type Department Care Team (Late st Contact Info) Description 02/04/2023 Orders Only [facility] Family [facility] [address] [place] [address] Danny Schuler MD [address] [place] [address] Strep pharyngitis (Primary Dx) Social History Tobacco [...] How often do you attend chur or samaritan services? More than 4 times per year 12/11/2022 Do you belong to any clubs o r organizations such as voodoo groups, unions, fraternal or athletic groups, or [...] medical care, and heating? Somewhat hard 12/11/2022 [facility] - [...] the money to buy more. Never true 09/26/20 23 Within the past 12 months, t [...] place to sleep or slept in a fpc (including now)? No 12/11/2022 Education Answer Date [...] PM EDT Routine [facility] [address] [facility] [place] [address] Doc Thomas DO [address] [place], [place] [address] documented as of this encounter Visit Diagnoses Diagnosis Strep pharyngitis- Primary documented in this encounter Care Teams Case Assistant Relationship Specialty Start Date End Date Danny Schuler MD [address] [place] [address] PCP - General Family Medicine 07/24/22 Danny Schuler MD [address] [place] [address] PCP - [place] [employer] 06/16/20 documented as of this encounter
--- OUTSIDE RECORDS SUMMARY | 2025-01-02 08:58 | XMS_ITS | Encounter Summary ---
Author Organization [facility] Address [address] [place] [address] Care Team Providers Care Dust Operator Name Role Phone Danny Schuler MD Primary Care Provider Danny Schuler MD Unavailable [phone] Encounter Details Date Type Department Care Team (Late st Contact Info) Description 09/02/2023 Orders Only [facility] [place] 100 Family Medicine 112 [facility] 100 [place] [address] Marcelle Espinosa DO [address] [facility] [place] [address] Social History Tobacco Use Types Packs/Day Years [...] How often do you attend chur or mormon services? More than 4 times per year [...] medical care, and heating? Somewhat hard 12/11/2022 [facility] ional Health - Occupational Stress [...] PM EDT Routine [facility] [address] [place] [id number] Doc Thomas DO [address] [facility] [place] [address] documented as of this encounter Procedures Procedure Name Priority Date/Time Associated Diagnosis Comments COLONOSCOPY Routine 09/02/2023 2:27 PM EDT documented in this encounter Results * Colonoscopy (09/02/2023 2:27 PM EDT) Anatomical Region Laterality Modality Endoscopy us Marcelle Espionsa DO ENDOSCOPY PROCEDURE ORDERABLES F inal Result documented in this encounter Visit Diagnoses Not on filedocumented in this encounter Care Teams Dust Operator Relationship Specialty Start Date End Date Danny Schuler MD [address] [facility] [address] [place] [address] PCP - General Family Medicine 07/24/22 Danny Schuler MD [address] [address] PCP - Ziggy Richard 06/16/20 documented as of this encounter
--- OUTSIDE RECORDS SUMMARY | 2025-01-02 08:58 | XMS_ITS | Encounter Summary ---
Author Organization [facility] Address [address] [place] [address] Care Team Providers Care Motor Coach Supervisor Name Role Phone Danny Schuler MD Primary Care Provider [phone] Danny Schuler MD Unavailable [phone] Encounter Details Date Type Department Care Team (Late st Contact Info) Description 02/09/2023 Abstract [facility] [address] [place] [address] Bisi Richard NP Social History Tobacco Use [...] often do you attend chur ch or buddhism services? More than 4 times per year 12/11/2022 Do you belong to any clubs o r organizations such as taoism groups, unions, fraternal or athletic groups, or [...] medical care, and heating? Somewhat hard 12/11/2022 [facility] Occupat ional Health - Occupational [...] place to sleep or slept in a chcf (including now)? No 12/11/2022 Education Answer Date [...] PM EDT Routine [facility] [address] [facility] [place] [address] Doc Thomas DO [address] [facility] [place] [address] documented as of this encounter Visit Diagnoses Not on filedocumented in this encounter Care Teams Motor Coach Supervisor Relationship Specialty Start Date End Date Danny Schuler MD [address] [place] [address] PCP - General Family Medicine 07/24/22 Danny Schuler MD [address] [place] [address] [address] PCP - [place] [employer] 06/16/20 documented as of this encounter
--- OUTSIDE RECORDS SUMMARY | 2025-01-02 08:58 | XMS_ITS | Encounter Summary ---
Author Organization [facility] Address [address] [place] [address] Care Team Providers Care Crown Presser Name Role Phone Danny Schuler MD Primary Care Provider [phone] Danny Schuler MD Unavailable [phone] Encounter Details Date Type Department Care Team (Late st Contact Info) Description 07/29/2024 Abstract [facility] [address] [facility] [place] [address] Doc Thomas DO [address] [facility] [address] [place], [facility] [address] Social History Tobacco Use Types Packs/Day Years [...] often do you attend chur ch or advent services? More than 4 times per year 12/11/2022 Do you belong to any clubs o r organizations such as episcopalian groups, unions, fraternal or athletic groups, or [...] medical care, and heating? Somewhat hard 12/11/2022 [facility] of Occupat ional Health - Occupational Stress [...] place to sleep or slept in a residential (including now)? No 12/11/2022 Education Answer Date [...] PM EDT Routine [facility] [address] [facility] [place] [address] Doc Thomas DO [address] [facility] [place] [address] documented as of this encounter Visit Diagnoses Not on filedocumented in this encounter Care Teams Crown Presser Relationship Specialty Start Date End Date Danny Schuler MD [address] [facility] [address] [place] [address] PCP - General Family Medicine 07/24/22 Danny Schuler MD [address] [place] [id number] PCP - Ziggy Richard 06/16/20 documented as of this encounter
--- OUTSIDE RECORDS SUMMARY | 2025-01-02 08:58 | XMS_ITS | Clinical Summary ---
Author Organization [facility] Address [address] [place] [address] Care Team Providers Care Immigration Law Specialist Name Role Phone Danny Payne MD Primary Care Provider Danny Payne MD Unavailable [phone] Allergies Active Allergy Reactions Criticality Noted Date Comments Azithromycin Hives 09/19/2020 Other Reaction(s): hives Latex Rash Low 09/19/2020 Other Reaction(s): Unknown Midodrine 12/10/2022 Other Reaction(s): body numbness Medications ondansetron (Zofran) 4 MG tabletIndications:N ausea and vomiting in ([facility]) Take 1 tablet (4 mg) by mouth [...] 4 MG tabletIndications:N ausea and vomiting in ([facility]) Take 1 tablet (4 mg) by mouth [...] Encounters Date Type Department Care Team Description 12/26/2024 Clinisync Result Encounter [facility] External Department Unsolicited Provider, Generic External Data 12/26/2024 Clinisync Result Encounter [facility] External Department Unsolicited Provider, Generic External Data 12/26/2024 Clinisync Result Encounter [facility] External Department Unsolicited Sintia Thomas DO 12/23/2024 2:00 PM EDT Routine [facility] [address] [place] [address] Jessica Steen NP Third trimester ([facility]); 31 weeks gestation of ([facility]) 12/23/2024 Refill [facility] [address] [place] [address] Azalea Schmitz MA Nausea and vomiting in ([facility]) 12/23/2024 Bamboo flowsheet [facility] [address] [facility] [address] [address] Jessica Steen NP 12/09/2024 2:00 PM EDT Routine [facility] [address] [place] [address] Sintia Thomas, Third trimester ([facility]); 29 weeks gestation of ([facility]); Yeast infection 12/09/2024 Bamboo flowsheet [facility] [address] [facility] [address] Sintia Thomas DO 12/01/2024 Telephone [facility] [address] [facility] [address] Azalea Schmitz MA 11/25/2024 1:50 PM EDT Routine [facility] [address] [place] [address] Jessica Steen NP Second trimester ([facility]); 27 weeks gestation of ([facility]); 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 Bamboo flowsheet [facility] [address] [facility] [address] Jessica Steen NP 11/24/2024 Clinisync Result Encounter [facility] External Department Unsolicited Provider, Generic External Data 11/19/2024 Telephone [facility] [address] [place] [address] Janet Narayanan MA 11/12/2024 Clinisync Result Encounter [facility] External Department Unsolicited Provider, Generic External Data 11/06/2024 Orders Only [facility] [address] [place] [address] Coretta Cardenas LPN 11/05/2024 Telephone [facility] [address] [facility] [address] Azalea Schmitz MA 11/04/2024 Telephone [facility] [address] [facility] [address] Azalea Schmitz MA 11/03/2024 Clinisync Result Encounter [facility] External Department Unsolicited Provider, Generic External Data 11/03/2024 Telephone [facility] [address] [place] [address] Azalea Schmitz MA 10/28/2024 2:30 PM EDT Routine [facility] [address] [place] [address] Pretty Chaidez PA Second trimester ([facility]); 23 weeks gestation of ([facility]); Diabetes mellitus screening; STD exposure; Well woman exam with routine gynecological exam; Heart palpitations 10/28/2024 Clinisync Result Encounter [facility] External Department Unsolicited Provider, Generic External Data 10/28/2024 External Result Encounter [facility] External Department Unsolicited Jessica Steen NP 10/28/2024 Bamboo flowsheet [facility] [address] [facility] [address] Pretty Chaidez PA 10/06/2024 Clinisync Result Encounter [facility] External Department Unsolicited Sintia Thomas DO 10/05/2024 Telephone [facility] [address] [facility] [address] Azalea Schmitz MA 10/05/2024 Refill [facility] [address] [facility] [address] Azalea Schmitz MA Nausea and vomiting during ([facility]) from Last 3 Months Immunizations Immunization Administration [...] Mother's Brother Alive Mother's Sister Alive Other BOTANY TEACHER and Kavin POT S Paternal Grandfather . [...] often do you attend chur ch or druze services? More than 4 times per year 12/11/2022 Do you belong to any clubs o r organizations such as synagogue groups, unions, fraternal or athletic groups, or [...] medical care, and heating? Somewhat hard 12/11/2022 [facility] [place] of Occupat ional Health - Occupational Stress [...] 1:00 PM EDT Routine [facility] [address] [place] [address] [place] [address] Sintia Thomas, DO [address] [facility] [address] [place] [id number] Health Maintenance Due Date Last Done Comments Influenza Vaccine (#1) 2025 Postp oned from 11/16/2024 (Patient Refused) Procedures Procedure Name Priority Date/Time Associated Diagnosis Comments US OB GROWTH 12/26/2024 11:31 AM EDT US OB BPP W NON-STRESS 12/26/2024 11:19 AM EDT ALL THYROID STIM HORMONE Routine 12/26/2024 8:13 AM EDT POCT URINALYSIS DIPSTICK Routine 12/23/2024 2:01 PM EDT 31 weeks gestation of ([facility]) POCT URINALYSIS DIPSTICK Routine 12/09/2024 2:14 PM EDT Third trimester ([facility]) POCT URINALYSIS DIPSTICK Routine 11/25/2024 3:33 PM EDT Second trimester ([facility]) CA ECHO DOPPLER COMPLETE 11/24/2024 4:39 PM EDT ECG 12-LEAD 11/12/2024 12:06 PM EDT ALL THYROID STIM HORMONE Routine 11/03/2024 4:00 PM EDT GLUCOSE 1 HOUR Routine 11/03/2024 4:00 PM EDT ALL CBC WITH AUTO DIFF Routine 11/03/2024 4:00 PM EDT RECURRENT VAGINITIS (HTRX) Routine 10/28/2024 4:48 PM EDT POCT URINALYSIS DIPSTICK Routine 10/28/2024 2:43 PM EDT Second trimester ([facility]) IGP,APTIMA HPV,AGE GDLN Routine 10/28/2024 2:25 PM EDT PAP SMEAR Routine 10/28/2024 12:00 AM EDT US OB CERVICAL LENGTH 10/06/2024 2:26 PM EDT from Last 3 Months Results * US OB GROWTH (12/26/2024 11:31 AM EDT) Anatomical Region Laterality Modality Other 12/26/2024 11:3 1 AM EDT Narrative 12/26/2024 11:33 [place] [address] Ultrasound Report Signed Patient: ALETA CASTRO MR#: [id number] : 2000 Acct:[id number] Age/Sex: 24 / F ADM Date: 12/26/24 Loc: US Attending Dr: Sinita Thomas D.O. Ordering Physician: Sintia Thomas D.O. Date of Service: 12/26/24 Procedure(s): US OB growth Accession Number(s): [id number] cc: Sintia Thomas D.O.; D[place] PA[place] [address] Patient Name: ALETA CASTRO MRN: [id number] date: 2000 Sex: F Assigned Patient Location: US Current Patient Location: Accession/Order Number: [id number] Exam Date: 12/26/2024 09:00 Report Date: 12/26/2024 11:31 At the request of: SINTIA THOMAS DO Procedure: US OB growth Obstetric ultrasound for growth INDICATION: Gabby's disease FINDINGS: Single live anterior cephalic presentation longitudinal lie. Amniotic fluid index 12.4 cm between the gestational age fifth and 95th percentile. Largest pocket of fluid 5.1 cm. heart rate 1 52 bpm. motion documented by the cell cleaner.. Estimated weight 2093 g 71.4%. Gestation age 32 weeks and 0 days. Biparietal diameter 7.93 m. Head circumference 30.7 cm. Otherwise the 10.6 cm. Abdominal circumference 28.9 cm. Femur length 6.4 cm. US/US OB growth IMPRESSION: Single live intrauterine of approximately 30 weeks Impression dictated by: Deshaun Aguilar M.D. 12/26/2024 11:31 AM Dictation Location: [place] [address] Electronically authenticated by: [id number] Y Date: 12/26/2024 11:31 Dictated By: Deshaun Aguilar M.D. Signed By: 12/26/24 1133 DD/ 1131 TD/TT: Nursery Nurse: Procedure Note Radiology, Radiologist, - 12/26/2024 [place] [address] Ultrasound Report Signed Patient: ALETA CASTRO NMR#: [id number] : 2000Acct:[id number] Age/Sex: 24 / FADM Date: 12/26/24 Loc: US Attending Dr: Sintia Thomas D.O. Ordering Physician: Sintia Thomas D.O. Date of Service: 12/26/24 Procedure(s): US OB growth Accession Number(s): [id number] cc: Sintia Thomas D.O.; [place] [address] Patient Name: ALETA CASTRO MRN: [id number] date: 2000 Sex: F Assigned Patient Location: US Current Patient Location: Accession/Order Number: [id number] Exam Date: 12/26/2024 09:00 Report Date: 12/26/2024 11:31 At the request of: SINTIA THOMAS DO Procedure: US OB growth Obstetric ultrasound for growth INDICATION: Gabby's disease FINDINGS: Single live anterior cephalic presentationlongitudinal lie. Amniotic fluid index 12.4 cm between the gestational age fifth [id number] percentile. Largest pocket of fluid 5.1 cm. heart rate 1 52 bpm. motion documented by the cell cleaner.. Estimated weight 2093 g 71.4%. Gestation age 32 weeks and 0 days. Biparietal diameter 7.93 m. Head circumference 30.7 cm. Otherwise the 10.6 cm. Abdominal circumference 28.9 cm. Femur length 6.4 cm. US/US OB growth IMPRESSION: Single live intrauterine of approximately 30 weeks Impression dictated by: Deshaun Aguilar M.D. 12/26/2024 11:31 AM Dictation Location: [place] [address] Electronically authenticated by: [id number] Y Date: 1:31 Dictated By: Deshaun Aguilar M.D. Signed By:12/26/24 1133 DD/ 1131 TD/TT: Nursery Nurse: us Generic External Data Provider [facility] Final Result * US OB BPP W NON-STRESS (12/26/2024 11:19 AM EDT) Anatomical Region Laterality Modality Other 12/26/2024 11:1 9 AM EDT Narrative 12/26/2024 11:22 [place] [address] Ultrasound Report Signed Patient: ALETA CASTRO MR#: [id number] : 2000 Acct:[id number] Age/Sex: 24 / F ADM Date: 12/26/24 Loc: US Attending Dr: Sintia Thomas D.O. Ordering Physician: Sintia Thomas D.O. Date of Service: 12/26/24 Procedure(s): US OB BPP w non-stress Accession Number(s): [id number] cc: Sintia Thomas D.O.; DANNY PAYNE [address] [address] Patient Name: ALETA CASTRO MRN: [id number] date: 2000 Sex: F Assigned Patient Location: US Current Patient Location: Accession/Order Number: [id number] Exam Date: 12/26/2024 09:00 Report Date: 12/26/2024 11:19 At the request of: SINTIA THOMAS DO Procedure: US OB BPP w non-stress Ultrasound biophysical profile INDICATION: Gabby's disease. COMPARISON: 10/06/2024 FINDINGS: LYNN 12.4 cm. 8/8 score biophysical profile. Fetus is cephalic position with heart rate 152 beats per minutes. US/US OB BPP w non-stress Impression: 8 out of 8 score biophysical profile. Impression dictated by: Deshaun Aguilar M.D. 12/26/2024 11:19 AM Dictation Location: [place] [address] Electronically authenticated by: [id number] Y Date: 12/26/2024 11:19 Dictated By: Deshaun Aguilar M.D. Signed By: 12/26/24 1122 DD/ 1119 TD/TT: Nursery Nurse: Procedure Note Radiology, Radiologist, MD - 12/26/2024 [place] [address] Ultrasound Report Signed Patient: ALETA CASTRO NMR#: [id number] : 2000Acct:[id number] Age/Sex: Date: 12/26/24 Loc: US Attending Dr: Sintia Thomas D.O. Ordering Physician: Sintia Thomas D.O. Date of Service: 12/26/24 Procedure(s): US OB BPP w non-stress Accession Number(s): [id number] cc: Sintia Thomas D.O.; DANNY PAYNE [place] [id number] Patient Name: ALETA CASTRO MRN: [id number] date: 2000 Sex: F Assigned Patient Location: US Current Patient Location: Accession/Order Number: [id number] Exam Date: 12/26/2024 09:00 Report Date: 12/26/2024 11:19 At the request of: SINTIA THOMAS DO Procedure: US OB BPP w non-stress Ultrasound biophysical profile INDICATION: Gabby's disease. COMPARISON: 10/06/2024 FINDINGS: LYNN 12.4 cm. 8/8 score biophysical profile. Fetus is cephalic position with heart rate 152 beats per minutes. US/US OB BPP w non-stress Impression: 8 out of 8 score biophysical profile. Impression dictated by: Deshaun Aguilar M.D. 12/26/2024 11:19 AM Dictation Location: [place] [address] Electronically authenticated by: [id number] Y Date: 1:19 Dictated By: Deshaun Aguilar M.D. Signed By:12/26/24 1122 DD/ 1119 TD/TT: Nursery Nurse: Generic External Data Provider [facility] Final Result * (ABNORMAL) ALL THYROID STIM HORMONE (12/26/2024 8:13 AM EDT) Only the most recent of2 resultswithin the time period is included. THYROID STIMULATING HORMONE 0.131(L) 0.358 - 3.740 uIU/mL [facility] 12/26/2024 8:13 AM EDT 12/26/2024 8:13 AM EDT Narrative [facility] - 12/26/2024 9:37 AM EDT Generic External Data Provider [facility] F inal Result [facility] * (ABNORMAL) POCT urinalysis dipstick manually resulted (12/23/2024 2:01 PM EDT) Only the most recent of4 resultswithin the time period is included. Color, UA Yellow Clarity, UA Clear Glucose, UA 1+ Negative - 2000(110) ++++ mg/dL Bilirubin, UA Negative Negative - [...] Urine 12/23/2024 2:01 PM EDT Jessica Steen ADOPTION MANAGER POINT OF CARE TEST ENTER/EDIT ORDERABLES Final Result * CA ECHO DOPPLER COMPLETE (11/24/2024 4:39 PM EDT) Anatomical Region Laterality Modality Other 11/24/2024 4:39 PM EDT Narrative 11/24/2024 4:40 [place] [address] Cardiology Report Signed Patient: ALETA CASTRO MR#: [id number] : 2000 Acct:[id number] Age/Sex: 24 / F ADM Date: 11/12/24 Loc: CARD Attending Dr: Jessica Steen Ordering Physician: Jessica Steen Date of Service: 11/12/24 Procedure(s): CA echo doppler complete Accession Number(s): [id number] cc: Jessica Steen; DANNY PAYNE Patient Name: ALETA CASTRO MR#: [id number] : 2000 Exam Date: 11/12/2024 Ordering Doctor: JESSICA STEEN [facility] ECHOCARDIOGRAM REPORT PROCEDURE: CA ECHO DOPPLER COMPLETE [...] Signed By: 11/24/24 1640 DD/ 1639 TD/TT: Nursery Nurse: Procedure Note Radiology, Radiologist, MD - 11/24/2024 [place] [address] Cardiology Report Signed Patient: ALETA CASTRO NMR#: [id number] : 2000Acct:[id number] Age/Sex: M Date: 11/12/24 Loc: CARD Attending Dr: Jessica Steen Ordering Physician: Jessica Steen Date of Service: 11/12/24 Procedure(s): CA echo doppler complete Accession Number(s): [id number] cc: Jessica Steen; DANNY PAYNE Patient Name: ALETA CASTRO MR#: [id number] : 2000 Exam Date: 11/12/2024 Ordering Doctor: JESSICA STEEN [facility] ECHOCARDIOGRAM REPORT PROCEDURE: CA ECHO DOPPLER COMPLETE [...] M.D. Signed By:11/24/24 1640 DD/ 1639 TD/TT: Nursery Nurse: Generic External Data Provider [facility] Final Result * ECG 12-LEAD (11/12/2024 12:06 PM EDT) Anatomical Region Laterality Modality Other 11/12/2024 12:0 6 PM EDT Narrative 11/13/2024 1:34 [place] [address] Electrocardiograph Report Signed Patient: ALETA CASTRO MR#: [id number] : 2000 Acct:[id number] Age/Sex: 24 / F ADM Date: 11/12/24 Loc: CARD Attending Dr: Jessica Steen Ordering Physician: Enio,Jessica Date of Service: 11/12/24 Procedure(s): ECG 12 lead Accession Number(s): [id number] cc: [facility] Test Date: 2024-11-12 Pat Name: ALETA CASTRO Department: Room: - Gender: Female Snuff Blender: : 2000 Requested By: JESSICA STEEN Order Number: [id number] Reading MD: Bibi Singh Measurements Intervals [place] Rate: 79 P: 42 VT: 158 QRS: 81 QRSD: 90 T: 41 QT: 353 QTc: 405 Interpretive Statements SINUS RHYTHM Normal EKG No previous ECG available for comparison Electronically Signed On 11-13-2024 13:34:21 EDT by Bibi Singh Dictated By: Bibi Singh M.D. Signed By: 11/13/24 1334 11/13/24 1334 DD/ 1206 TD/TT: Nursery Nurse: Procedure Note Radiology, Radiologist, MD - 11/13/2024 [place] [address] Electrocardiograph Report Signed Patient: ALETA CASTRO [facility]#: [id number] : 2000Acct:[id number] Age/Sex: 24 / FADM Date: 11/12/24 Loc: CARD Attending Dr: Jessica Steen Ordering Physician: Jessica Steen Date of Service: 11/12/24 Procedure(s): ECG 12 lead Accession Number(s): [id number] cc: [facility] Test Date: 2024-11-12 Pat Name: ALETA CASTRO Department: Room: - Gender: Female Snuff Blender: : 2000 Requested By: JESSICA STEEN Order Number: [id number] Reading MD: Bibi Singh Measurements Intervals [place] Rate: 79 P: 42 VT: 158 QRS: 81 QRSD: 90 T: 41 QT: 353 QTc: 405 Interpretive Statements SINUS RHYTHM Normal EKG No previous ECG available for comparison Electronically Signed On 11-13-2024 13:34:21 EDT by Bibi Singh Dictated By: Bibi Singh M.D. Signed By:11/13/24 1334 11/13/24 1334 DD/ 1206 TD/TT: Nursery Nurse: us Generic External Data Provider [facility] Final Result * GLUCOSE 1 HOUR (11/03/2024 4:00 PM EDT) GLUCOSE 1 HOUR 105 <130 mg/dL TB 11/03/2024 4:00 PM EDT 11/03/2024 4:01 PM EDT Narrative [facility] - 11/03/2024 6:33 PM EDT Jessica Steen ADOPTION MANAGER LAB BLOOD ORDERABLES Final Re sult [facility] * (ABNORMAL) ALL CBC WITH AUTO DIFF (11/03/2024 4:00 PM EDT) Pathologist [facility] TB WBC 6.6 4.0 - 11.0 10 3/uL TBH TB RBC 3.34(L) 4.20 - 5.40 10 6/uL [facility] TB HGB 10.8(L) 12.0 - 16.0 g/dL TB TB HCT 31.2(L) 36.0 - 48.0 % TBH TB MCV 93.4 81.0 - 99.0 fL TBH TBH MCH 32.3 26.7 - 34.0 pg TBH TB MCHC 34.6 29.9 - 35.2 g/dL TBH TBH RDW 12.7 11.0 - 15.0 % TBH TBH PLT 187 150 - 450 10 3/uL TBH TB MPV 9.7 9.5 - 13.5 fL TBH [...] EDT Jessica Steen NP [facility] * RECURRENT VAGINITIS (HTRX) (10/28/2024 4:48 PM EDT) [facility] ATOPOBIUM VAGINAE 0 19.961 - 24.689 ppm 10/30/2024 7:27 AM EDT [facility] ATOPOBIUM VAGINAE Not Detected 19.961 - 24.689 ppm 10/30/2024 7:27 AM EDT [facility] BVAB 2,3 (BACTERIAL VAGINOSIS ASSOCIATED BACTERIA 2, 3); MOBILUNCUS SPP 0 19.961 - 24.689 ppm 10/30/2024 7:27 AM EDT [facility] VAGINOSIS ASSOCIATED BACTERIA 2, 3); MOBILUNCUS SPP Not Detected 19.961 - 24.689 ppm 10/30/2024 7:27 AM EDT [facility] RICKEY ALBICANS, PARAPSILOSIS, TROPICALIS 0 23.000 - 30.347 ppm 10/30/2024 7:27 AM EDT [facility] RICKEY ALBICANS, PARAPSILOSIS, TROPICALIS Not Detected 23.000 - 30.347 ppm 10/30/2024 7:27 AM EDT [facility] RICKEY GLABRATA 0 23.000 - 31.618 ppm 10/30/2024 7:27 AM EDT [facility] RICKEY GLABRATA Not Detected 23.000 - 31.618 ppm 10/30/2024 7:27 AM EDT [facility] RICKEY KRUSEI 0 23.000 - 30.873 ppm 10/30/2024 7:27 AM EDT [facility] RICKEY KRUSEI Not Detected 23.000 - 30.873 ppm 10/30/2024 7:27 AM EDT [facility] CHLAMYDIA TRACHOMATIS 0 23.000 - 31.586 ppm 10/30/2024 7:27 AM EDT [facility] CHLAMYDIA TRACHOMATIS Not Detected 23.000 - 31.586 ppm 10/30/2024 7:27 AM EDT [facility] GARDNERELLA VAGINALIS 0 19.961 - 24.689 ppm 10/30/2024 7:27 AM EDT [facility] GARDNERELLA VAGINALIS Not Detected 19.961 - 24.689 ppm 10/30/2024 7:27 AM EDT [facility] MEGASPHAERA (TYPES 1, 2) 0 19.961 - 24.689 ppm 10/30/2024 7:27 AM EDT [facility] MEGASPHAERA (TYPES 1, 2) Not Detected 19.961 - 24.689 ppm 10/30/2024 7:27 AM EDT [facility] NEISSERIA GONORRHOEAE 0 23.000 - 32.587 ppm 10/30/2024 7:27 AM EDT [facility] NEISSERIA GONORRHOEAE Not Detected 23.000 - 32.587 ppm 10/30/2024 7:27 AM EDT [facility] TRICHOMONAS VAGINALIS 0 23.000 - 31.995 ppm 10/30/2024 7:27 AM EDT [facility] TRICHOMONAS VAGINALIS Not Detected 23.000 - 31.995 ppm 10/30/2024 7:27 AM EDT [facility] MYCOPLASMA GENITALIUM 0 19.961 - 24.689 ppm 10/30/2024 7:27 AM EDT [facility] MYCOPLASMA GENITALIUM Not Detected 19.961 - 24.689 ppm 10/30/2024 7:27 AM EDT [facility] Tissue 10/28/2024 4:48 PM EDT 10/30/2024 2:18 AM EDT us Jessica Steen NP LAB BLOOD ORDERABLES Final Re sult [facility] [address] [address] * IGP,APTIMA HPV,AGE GDLN (10/28/2024 2:25 PM EDT) AGE GDLN ACOG TESTING Note . [facility] Comment: TESTS RESULT FLAG UNITS REF RANGE LAB Clinician Provided Cytology Information Source.............Endocervix No. of containers..01 ThinPrep Vial Age Algo ACOG Yaa... -15 04 FLAG LEGEND: L-Low Normal,H-High Normal,LL-Alert Low,HH-Alert High <-Panic Low,>-Panic High,A-Abnormal,AA-Critical Abnormal Performed at: 01 =G [facility] [address] [place] [place] [address] Ludy Hector MD, IGP, RFX APTIMA HPV ASCU Note . [facility] Comment: TESTS RESULT FLAG UNITS REF RANGE LAB DIAGNOSIS: 02 NEGATIVE FOR INTRAEPITHELIAL LESION OR MALIGNANCY. THIS SPECIMEN WAS RESCREENED PART OF OUR STOCK BROKER SUPERVISOR PROGRAM. Specimen adequacy: 02 Satisfactory for evaluation. No endocervical component is identified. Performed by: 02 Brionna Mello, Mutuel Department Manager ([facility]) QC reviewed by: 02 Polina Simons, Mutuel Department Manager . 02 Note: Note 02 The [...] High,A-Abnormal,AA-Critical Abnormal Performed at: 02 WB [facility] [address] [facility] [address] Ludy Hector MD, Performed at: =G - [facility] [address] [id number] Liquefier: Ludy Hector MD, Phone: [phone] Performed at: - [facility] [address] [id number] Liquefier: Ludy Hector MD, Phone: [phone] 10/28/2024 2:25 PM EDT 10/28/2024 9:48 PM EDT Narrative [facility] - 11/03/2024 11:08 AM EDT [facility] ENDOCERV[facility] Pretty ARELLANO LAB BLOOD ORDERABLES Final Resul t Performing Organization Address City/[facility]/ZIP Co de Phone Number [facility]PR TB * Pap Smear (10/28/2024 12:00 AM EDT) Swab Cervical swab / Unknown William Nurse [facility] Ob LAB CYTOLOGY ORDERABLES Final Result EXTERNAL LAB * US OB CERVICAL LENGTH (10/06/2024 2:26 PM EDT) Anatomical Region Laterality Modality Other 10/06/2024 2:26 PM EDT Narrative 10/06/2024 2:28 [place] [address] Ultrasound Report Signed Patient: ALETA CASTRO MR#: [id number] : 2000 Acct:[id number] Age/Sex: 24 / F ADM Date: 10/06/24 Loc: US Attending Dr: Sintia Thomas D.O. Ordering Physician: Sintia Thomas D.O. Date of Service: 10/06/24 Procedure(s): US OB cervical length Accession Number(s): [id number] cc: Sintia Thomas D.O.; DANNY PAYNE [address] [address] Patient Name: ALETA CASTRO MRN: [id number] date: 2000 Sex: F Assigned Patient Location: US Current Patient Location: US Accession/Order Number: [id number] Exam Date: 10/06/2024 14:25 Report Date: 10/06/2024 [...] Jr., D.O. 10/06/2024 2:26 PM Dictation Location: [place] [address] Electronically authenticated by: [id number] Y Date: 10/06/2024 14:26 Dictated By: Jermaine Nguyễn M.D. Signed By: 10/06/24 1428 DD/ 1426 TD/TT: Nursery Nurse: Procedure Note Radiology, Radiologist, MD - 10/06/2024 [place] [address] Ultrasound Report Signed Patient: ALETA CASTRO NMR#: [id number] : 2000Acct:[id number] Age/Sex: 24 FADM Date: 10/06/24 Loc: US Attending Dr: Sintia Thomas D.O. Ordering Physician: Sintia Thomas D.O. Date of Service: 10/06/24 Procedure(s): US OB cervical length Accession Number(s): [id number] cc: Sintia Thomas D.O.; DANNY PAYNE [address] [address] Patient Name: ALETA CASTRO MRN: [id number] date: 2000 Sex: F Assigned Patient Location: US Current Patient Location: US Accession/Order Number: [id number] Exam Date: 10/06/2024 14:25 Report Date: 10/06/2024 [...] Jr., D.O. 10/06/2024 2:26 PM Dictation Location: [place] [address] Electronically authenticated by: [id number] Y Date: 4:26 Dictated By: Jermaine Nguyễn M.D. Signed By:10/06/24 1428 DD/ 1426 TD/TT: Nursery Nurse: us Sintia Thomas DO [facility] Final Result from Last 3 Months Insurance Care Teams Immigration Law Specialist Relationship Specialty Start Date End Date Danny Payne MD [address] [place] [address] PCP - General Family Medicine 07/24/22 Danny Payne MD [address] [address] KAT - Ziggy Commercial 06/16/20
--- OUTSIDE RECORDS SUMMARY | 2025-01-02 08:58 | XMS_ITS | Encounter Summary ---
Author Organization [facility] Address [address] [place] [address] Care Team Providers Care Corral Boss Name Role Phone Danny Schuler MD Primary Care Provider Danny Schuler MD Unavailable [phone] Encounter Details Date Type Department Care Team (Late st Contact Info) Description 04/25/2023 Abstract [facility] [address] [place] [address] Remy Rojas DO [address] [place] [address] Social History Tobacco Use Types Packs/Day Years [...] often do you attend chur ch or yazidism services? More than 4 times per year 12/11/2022 Do you belong to any clubs o r organizations such as islam groups, unions, fraternal or athletic groups, or [...] and heating? Somewhat hard 12/11/2022 [facility] [place] of Occupat ional Health - Occupational Stress [...] PM EDT Routine [facility] [address] [facility] [place] [address] Doc Thomas DO [address] [facility] [place] [address] documented as of this encounter Visit Diagnoses Not on filedocumented in this encounter Care Teams Corral Boss Relationship Specialty Start Date End Date Danny Schuler MD [address] [address] PCP - General Family Medicine 07/24/22 Danny Schuler MD [address] [place] [address] PCP - St[place]ard Commercial 06/16/20 documented as of this encounter
--- OUTSIDE RECORDS SUMMARY | 2025-01-02 08:58 | XMS_ITS | Encounter Summary ---
Author Organization [facility] Address [address] [place] [address] Care Team Providers Care Surveyor Oil Well Directional Name Role Phone Danny Schuler MD Primary Care Provider Danny Schuler MD Unavailable [phone] Encounter Details Date Type Department Care Team (Late st Contact Info) Description 11/06/2024 Orders Only [facility] [address] [place] [phone] Coretta Cardenas LPN [address] [place] [id number] Social History Tobacco Use Types Packs/Day Years [...] How often do you attend chur or mormonism services? More than 4 times per year 12/11/2022 Do you belong to any clubs o r organizations such as spiritism groups, unions, fraternal or athletic groups, or [...] medical care, and heating? Somewhat hard 12/11/2022 [facility] of Occupat ional Health - [...] place to sleep or slept in a [place] health care facility (including now)? No 12/11/2022 Education Answer Date [...] PM EDT Routine [facility] [address] [facility] [place] [address] Doc Thomas DO [address] [facility] [place] [address] documented as of this encounter Procedures [...] on filedocumented in this encounter Care Teams Surveyor Oil Well Directional Relationship Specialty Start Date End Date Danny Schuler MD [address] [place] [address] PCP - General Family Medicine 07/24/22 Danny Schuler MD [address] [facility] [facility] [address] [place] [address] PCP - Ziggy Richard 06/16/20 documented as of this encounter
--- OUTSIDE RECORDS SUMMARY | 2025-01-02 08:58 | XMS_ITS | Encounter Summary ---
Author Organization [facility] Address [address] [place] [address] Care Team Providers Care College Specialist Name Role Phone Danny Payne MD Primary Care Provider [phone] Danny Payne MD Unavailable [phone] Encounter Details Date Type Department Care Team (Late st Contact Info) Description 12/26/2024 Clinisync Result Encounter [facility] External [...] often do you attend chur ch or congregational services? More than 4 times per year 12/11/2022 Do you belong to any clubs o r organizations such as sabianist groups, unions, fraternal or athletic groups, or [...] medical care, and heating? Somewhat hard 12/11/2022 [facility] of Occupat ional Health - Occupational Stress [...] PM EDT Routine [facility] [address] [facility] [place] [place] [address] Sintia Thomas DO [address] [facility] [address] [place] [place], [place] [id number] documented as of this encounter Procedures Procedure Name Priority Date/Time Associated Diagnosis Comments US OB GROWTH 12/26/2024 11:31 AM EDT documented in this encounter Results * US OB GROWTH (12/26/2024 11:31 AM EDT) Anatomical Region Laterality Modality Other 12/26/2024 11:3 1 AM EDT Narrative 12/26/2024 11:33 AM EDT The [address] [address] Ultrasound Report Signed Patient: RACHEL CASTRO MR#: [id number] : 2000 Acct:[id number] Age/Sex: 24 / F ADM Date: 12/26/24 Loc: US Attending Dr: Sintia Thomas D.O. Ordering Physician: Sintia Thomas D.O. Date of Service: 12/26/24 Procedure(s): US OB growth Accession Number(s): [id number] cc: Sintia Thomas D.O.; DANNY PAYNE [place] [id number] Patient Name: RACHEL CASTRO MRN: [id number] date: 2000 Sex: F Assigned Patient Location: US Current Patient Location: Accession/Order Number: [id number] Exam Date: 12/26/2024 09:00 Report Date: 12/26/2024 11:31 At the request of: SINTIA THOMAS DO Procedure: US OB growth Obstetric ultrasound for growth INDICATION: Gabby's disease FINDINGS: Single live anterior cephalic presentation longitudinal lie. Amniotic fluid index 12.4 cm between the gestational age fifth and 95th percentile. Largest pocket of fluid 5.1 cm. heart rate 1 52 bpm. motion documented by the marketing assistant manager.. Estimated weight 2093 g 71.4%. Gestation age 32 weeks and 0 days. Biparietal diameter 7.93 m. Head circumference 30.7 cm. Otherwise the 10.6 cm. Abdominal circumference 28.9 cm. Femur length 6.4 cm. US/US OB growth IMPRESSION: Single live intrauterine of approximately 30 weeks Impression dictated by: Deshaun Aguilar M.D. 12/26/2024 11:31 AM Dictation Location: [place] [address] Electronically authenticated by: [id number] Y Date: 12/26/2024 11:31 Dictated By: Deshaun Aguilar M.D. Signed By: 12/26/24 1133 DD/ 1131 TD/TT: Core Extruder: Procedure Note Radiology, Radiologist, - 12/26/2024 [place] [address] Ultrasound Report Signed Patient: RACHEL CASTRO NMR#: [id number] : 2000Acct:[id number] Age/Sex: 24 / FADM Date: 12/26/24 Loc: US Attending Dr: Sintia Thomas D.O. Ordering Physician: Sintia Thomas D.O. Date of Service: 12/26/24 Procedure(s): US OB growth Accession Number(s): [id number] cc: Sintia Thomas D.O.; DANNY PAYNE The [place] [address] Patient Name: RACHEL CASTRO MRN: [id number] date: 2000 Sex: F Assigned Patient Location: US Current Patient Location: Accession/Order Number: [id number] Exam Date: 12/26/2024 09:00 Report Date: 12/26/2024 11:31 At the request of: SINTIA THOMAS DO Procedure: US OB growth Obstetric ultrasound for growth INDICATION: Gabby's disease FINDINGS: Single live anterior cephalic presentationlongitudinal lie. Amniotic fluid index 12.4 cm between the gestational age fifth ram94fe percentile. Largest pocket of fluid 5.1 cm. heart rate 1 52 bpm. motion documented by the marketing assistant manager.. Estimated weight 2093 g 71.4%. Gestation age 32 weeks and 0 days. Biparietal diameter 7.93 m. Head circumference 30.7 cm. Otherwise the 10.6 cm. Abdominal circumference 28.9 cm. Femur length 6.4 cm. US/US OB growth IMPRESSION: Single live intrauterine of approximately 30 weeks Impression dictated by: Deshaun Aguilar M.D. 12/26/2024 11:31 AM Dictation Location: [place] [address] Electronically authenticated by: [id number] Y Date: 1:31 Dictated By: Deshaun Aguilar M.D. Signed By:12/26/24 1133 DD/ 1131 TD/TT: Core Extruder: us Generic External Data Provider [facility] Final Result documented in this encounter Visit Diagnoses Not on filedocumented in this encounter Care Teams College Specialist Relationship Specialty Start Date End Date Danny Pyane MD [address] [address] PCP - General Family Medicine 07/24/22 Danny Payne MD [address] [address] PCP - Ziggy Commercial 06/16/20 documented as of this encounter
--- OUTSIDE RECORDS SUMMARY | 2025-01-02 08:58 | XMS_ITS | Encounter Summary ---
Author Organization [facility] Address [address] [place] [address] Care Team Providers Care Tobacco Packing Machine Operator Name Role Phone Danny Schuler MD Primary Care Provider [phone] Danny Schuler MD Unavailable [phone] Encounter Details Date Type Department Care Team (Late st Contact Info) Description 12/23/2024 Bamboo flowsheet [facility] [place] [facility] [address] [facility] [place] [address] Jessica Steen, COPYWRITER [address] [facility] [place] [address] Social History Tobacco Use Types Packs/Day [...] How often do you attend chur or mosque services? More than 4 times per year 12/11/2022 Do you belong to any clubs o r organizations such as jainism groups, unions, fraternal or athletic groups, or [...] medical care, and heating? Somewhat hard 12/11/2022 [facility] of Occupat unc healthal Health - Occupational Stress Questionnaire Answer Date [...] place to sleep or slept in a fdc (including now)? No 12/11/2022 Education Answer Date [...] OBGYN [address] [facility] [place] [address] Doc Thomas DO [address] [facility] [place] [address] documented as of this encounter Visit Diagnoses Not on filedocumented in this encounter Care Teams Tobacco Packing Machine Operator Relationship Specialty Start Date End Date Danny Schuler MD [address] [place] [address] PCP - General Family Medicine 07/24/22 Danny Schuler MD [address] [place] [address] PCP - Ziggy Commercial 06/16/20 documented as of this encounter
--- OUTSIDE RECORDS SUMMARY | 2025-01-02 08:58 | XMS_ITS | Encounter Summary ---
Author Organization [facility] Address [address] [place] [address] Care Team Providers Care Scarrer Name Role Phone Danny Payne MD Primary Care Provider [phone] Danny Payne MD Unavailable [phone] Encounter Details Date Type Department Care Team [...] often do you attend chur ch or hinduism services? More than 4 times per year 12/11/2022 Do you belong to any clubs o r organizations such as presybeterian groups, unions, fraternal or athletic groups, or [...] medical care, and heating? Somewhat hard 12/11/2022 [facility] of Occupat ional Health - [...] [facility] [address] [place] [address] Sintia Thomas DO [address] [facility] [place] [address] documented as of this encounter Procedures Procedure Name Priority Date/Time Associated Diagnosis Comments US OB BPP W NON-STRESS 12/26/2024 11:19 AM EDT documented in this encounter Results * US OB BPP W NON-STRESS (12/26/2024 11:19 AM EDT) Anatomical Region Laterality Modality Other 12/26/2024 11:1 9 AM EDT Narrative 12/26/2024 11:22 AM EDT The [place] [id number] Ultrasound Report Signed Patient: RACHEL CASTRO MR#: [id number] : 2000 Acct:[id number] Age/Sex: 24 / F ADM Date: 12/26/24 Loc: US Attending Dr: Sintia Thomas D.O. Ordering Physician: Sintia Thomas D.O. Date of Service: 12/26/24 Procedure(s): US OB BPP w non-stress Accession Number(s): [id number] cc: Sintia Thomas D.O.; DANNY PAYNE [place] [id number] Patient Name: RACHEL CASTRO MRN: [id number] date: 2000 Sex: F Assigned Patient Location: US Current Patient Location: Accession/Order Number: [id number] Exam Date: 12/26/2024 09:00 Report Date: 12/26/2024 [...] Aguilar M.D. 12/26/2024 11:19 AM Dictation Location: [place] [address] Electronically authenticated by: [id number] Y Date: 12/26/2024 11:19 Dictated By: Deshaun Aguilar M.D. Signed By: 12/26/24 1122 DD/ 1119 TD/TT: Operators Teacher: Procedure Note Radiology, Radiologist, MD - 12/26/2024 The [place] [id number] Ultrasound Report Signed Patient: RACHEL CASTRO NMR#: [id number] : 2000Acct:[id number] Age/Sex: 24 / FADM Date: 12/26/24 Loc: US Attending Dr: Sintia Thomas D.O. Ordering Physician: Sintia Thomas D.O. Date of Service: 12/26/24 Procedure(s): US OB BPP w non-stress Accession Number(s): [id number] cc: Sintia Thomas D.O.; DANNY PAYNE [place] [id number] Patient Name: RACHEL CASTRO MRN: [id number] date: 2000 Sex: F Assigned Patient Location: US Current Patient Location: Accession/Order Number: [id number] Exam Date: 12/26/2024 09:00 Report Date: 12/26/2024 [...] Aguilar M.D. 12/26/2024 11:19 AM Dictation Location: [place] [address] Electronically authenticated by: [id number] Y Date: 1:19 Dictated By: Deshaun Aguilar M.D. Signed By:12/26/24 1122 DD/ 1119 TD/TT: Operators Teacher: us Generic External Data Provider [facility] Final Result documented in this encounter Visit Diagnoses Not on filedocumented in this encounter Care Teams Scarrer Relationship Specialty Start Date End Date Danny Payne MD [address] [address] PCP - General Family Medicine 07/24/22 Danny Payne MD 112 [facility] [address] [place] [address] PCP - [place] Commercial 06/16/20 documented as of this encounter
--- OUTSIDE RECORDS SUMMARY | 2025-01-02 08:58 | XMS_ITS | Clinical Summary ---
Author Organization [facility] Address [address] [place] [address] Care Team Providers Care Fishing Captain Name Role Phone Unavailable Primary Care Provider [...] Description 11/27/2024 3:20 PM EDT Office Visit [facility] [address] [place] [address] Bibi Singh MD Syncope and collapse (Primary [...] patient's age to complete this topic Insurance [facility]
--- OUTSIDE RECORDS SUMMARY | 2025-01-02 08:58 | XMS_ITS | Encounter Summary ---
Author Organization [facility] Address [address] [place] [address] Care Team Providers Care General Engineering Teacher Name Role Phone Danny Schuler MD Primary Care Provider Danny Schuler MD Unavailable [phone] Encounter Details Date Type Department Care Team (Late st Contact Info) Description 12/26/2024 Clinisync Result Encounter [facility] External Department Unsolicited Doc Thomas, DO [address] [facility] [address] [place] [id number] Social History Tobacco Use Types Packs/Day Years [...] often do you attend chur ch or congregation services? More than 4 times per year 12/11/2022 Do you belong to any clubs o r organizations such as rastafari groups, unions, fraternal or athletic groups, or [...] Somewhat hard 12/11/2022 [facility] of Occupat ional Health - [...] [facility] [place] [address] Doc Thomas DO [address] [facility] [address] [place], [place] [address] documented as of this encounter Procedures Procedure Name Priority Date/Time Associated Diagnosis Comments ALL THYROID STIM HORMONE Routine 12/26/2024 8:13 AM EDT documented in this encounter Results * (ABNORMAL) ALL THYROID STIM HORMONE (12/26/2024 8:13 AM EDT) THYROID STIMULATING HORMONE 0.131(L) 0.358 - 3.740 uIU/mL [facility] 12/26/2024 8:13 AM EDT 12/26/2024 8:13 AM EDT Narrative [facility] - 12/26/2024 9:37 AM EDT us Generic External Data Provider [facility] F [facility]al [facility] documented in this encounter Visit Diagnoses Not on filedocumented in this encounter Care Teams General Engineering Teacher Relationship Specialty Start Date End Date Danny Schuler MD [address] [place] [address] PCP - General Family Medicine 07/24/22 Danny Schuler MD [address] [place] [address] PCP - Ziggy Richard 06/16/20 documented as of this encounter
--- OUTSIDE RECORDS SUMMARY | 2025-01-02 08:58 | XMS_ITS | Encounter Summary ---
Author Organization [facility] Address [address] [place] [address] Care Team Providers Care Carbon Brusher Assembler Name Role Phone Danny Schuler MD Primary Care Provider [phone] Danny Schuler MD Unavailable [phone] Encounter Details Date Type Department Care Team (Late st Contact Info) Description 07/28/2024 Abstract [facility] [address] [place] [address] [place] [address] Janet Narayanan MA Social History Tobacco Use [...] often do you attend chur ch or church services? More than 4 times per year [...] medical care, and heating? Somewhat hard 12/11/2022 [facility] of Occupat ional Health - Occupational Stress [...] PM EDT Routine [facility] [address] [facility] [place] [address] Doc Thomas DO [address] [facility] [place] [address] documented as of this encounter Visit Diagnoses Not on filedocumented in this encounter Care Teams Carbon Brusher Assembler Relationship Specialty Start Date End Date Danny Schuler MD 112 [address] [place] [address] PCP - General Family Medicine 07/24/22 Danny Schuler MD [address] [address] PCP - [place] Commercial 06/16/20 documented as of this encounter
[2025-01-02 09:30] VITALS: BP 125/77; PULSE 104
== END 2025-01-02 09:55 | disposition home or self-care (01) ==
LOC: US 08:55 → FBC 08:56
PROVIDERS: PCP Family Medicine; Visit Provider Obstetrics & Gynecology
DX: O99.283 Endocrine, nutritional and metabolic diseases complicating pregnancy, third trimester (principal); E06.3 Autoimmune thyroiditis; Z3A.33 33 weeks gestation of pregnancy
CPT/HCPCS: 76818

== ENCOUNTER 2025-01-06 14:53 | Outpatient (OUT) | payer BC, SELFPAY ==
--- OUTSIDE RECORDS SUMMARY | 2024-12-23 14:00 | XMS_ITS | Encounter Summary ---
Author Organization [facility] Address [address] [place] [address] Care Team Providers Care Carpet Installer Name Role Phone Danny Schuler MD Primary Care Provider [phone] Danny Schuler MD Unavailable [phone] Reason for Visit * ReasonCommentsRoutine Visit Encounter Details DateTypeDepartmentCare Team (Latest Contact Info)Bgiajoogfzt02/08/2025 2:00 PM EDTRoutine [facility] [address] [place] [address] Jessica Steen, [place] [address] [place] [address] Third trimester ([facility]); 31 weeks gestation of ([facility]) Social History Tobacco UseTypesPacks/DayYears UsedDateSmoking Tobacco: [...] relatives?Once a week12/11/2022How often do you attend faith or temple services?More than 4 times per year12/11/2022o you belong to any clubs or organizations such as faith groups, unions, fraAnthem Digital Media or athletic groups, or school groups?No12/11/2022How often [...] food, housing, medical care, and heating?Somewhat hard 12/11/2022[facility] [place] of Occupational Health - Occupational Stress QuestionnaireAnswerDate RecordedDo you feel stress - tense, restless, nervous, or anxious, or unable to sleep at night because yourmind is troubled all the time - these days?Only a gucypd8412/11/2022Exercise Vital SignAnswerDate Recorded On average, how many [...] steady place to sleep or slept in [place] (including now)?No12/11/2022EducationAnswer Date RecordedWhat is the highest level of school you have completed or the highest degree you have received?11th grade12/10/2022Estimated Date of XlpadlfsJwaxgxwzBdk84/06/2025ased on last menstrual period of 05/16/2024Sex and Gender InformationValueDate RecordedSex Assigned at GxgplVvksop49/25/2023 10:10 AM EDTLegal YqkNpqajj66/15/2023 6:51 PM EDTGender AobnpzhwMdmoyx69/25/2023 10:10 AM EDTSexual OrientationNot on filedocumented as of this encounter Last Filed Vital Signs Vital SignReadingTime TakenCommentsBlood Liwrspfb578/7012/23/2024 1:57 PM EDT Pulse--Temperature--Respiratory Rate--Oxygen Saturation--Inhaled Oxygen Concentration--Fwzdgm77.7 kg (171 lb 6.4 oz)12/23/2024 1:57 PM [...] Left 2019 OVARIAN CYST REMOVAL Left 05/20/2020 [facility] William VAGINAL DELIVERY REVIEW OF SYSTEMS [...] nursing note reviewed. Exam conducted with a chief deputy sheriff present. Vitals: Estimated body mass index is 29.42 kg/m?? as calculated from the following: Height as of 02/26/24: 5' 4 . Weight as of this encounter: 171 lb 6.4 oz. BP: 110/70 Patient's last menstrual period was 05/16/2024. ASSESSMENT & PLAN ICD-10-CM 1. Third trimester ([facility]) Z34.93 2. 31 weeks gestation of ([facility]) Z3A.31 POCT urinalysis dipstick manually resulted [...] Plan of Treatment DateTypeDepartmentCare Team (Latest Contact Info)Mlmnroxmmua58/05/2025 1:50 PM ESTRoutine [facility] [address] [place] [address] Pretty Chaidez PA [address] [place], [place] [address] documented as of this encounter Procedures Procedure NamePriorityDate/TimeAssociated DiagnosisCommentsPOCT URINALYSIS XANHVREPLjorasu51/08/2025 2:01 PM EDT 31 weeks gestation of ([facility]) documented in this encounter Results * (ABNORMAL) POCT urinalysis dipstick manually resulted (12/23/2024 2:01 PM EDT) ComponentValueRef RangeTest MethodAnalysis TimePerformed AtPathologist SignatureColor, UAYellowClarity, UAClearGlucose, UA1+Negative - 2000(110) ++++ mg/dLBilirubin, UANegativeNegative - 4(70) +++ mg/dLKetones, UANegative Negative - 160(16) ++++ mg/dLSpec Grav, UA1.0151 - 1.03Blood, UANegative Negative - 50 Randall/mcLpH, UA6.05 - 9Protein, UANegativeNegative - 2000(20) ++++ mg/dLUrobilinogen, UA2.00.2 - 12 mg/dLLeukocytes, UATraceNegative - 500+++ Rick/mcLNitrite, UANegativeNegative - PositiveSpecimen (Source)Anatomical Location / LateralityCollection Method / VolumeCollection TimeReceived Time Urine12/23/2024 2:01 PM EDT Narrative Authorizing ProviderResult TypeResult StatusJessica Steen NPPOINT OF CARE TEST ENTER/EDIT ORDERABLESFinal Result documented in this encounter Visit Diagnoses Diagnosis Third trimester ([facility]) state, incidental 31 weeks gestation of ([facility]) documented in this encounter Care Teams Team MemberRelationshipSpecialtyStart DateEnd Date Danny Schuler MD [address] [place] [address] PCP - GeneralFamily Medicine07/24/22 Danny Schuler MD [address] [place] [address] PCP - Ziggy Richard06/16/20documented as of this encounter
--- OUTSIDE RECORDS SUMMARY | 2025-01-05 13:00 | XMS_ITS | Encounter Summary ---
Author Organization [facility] Address [address] [place] [address] Care Team Providers Care Dock Attendant Name Role Phone Danny Schuler MD Primary Care Provider [phone] Danny Schuler MD Unavailable [phone] Reason for Visit * ReasonCommentsRoutine Visit Encounter Details DateTypeDepartmentCare Team (Latest Contact Info)Rbaifcbqxop93/21/2025 1:00 PM EDTRoutine [facility] [address] [facility] [place] [address] Doc Thomas DO [address] [facility] [address] [place], [place] [address] Third trimester ([facility]); 33 weeks gestation of ([facility]) Social History Tobacco UseTypesPacks/DayYears UsedDateSmoking Tobacco: Some [...] of sexual activity by your partner or ex-partner?12/11/2022Social Connection and Isolation Panel AnswerDate RecordedIn a typical week, how many times do you talk on the phone with family, friends, or neighbors?Three times a week12/11/2022How often do you get together with friends or relatives?Once a week12/11/2022How often do you attend pentecostal or yazidi services?More than 4 times per year12/11/2022o you belong to any clubs or organizations such as pentecostal groups, unions, fraSideband Networks or athletic groups, or school groups?No12/11/2022How often [...] food, housing, medical care, and heating?Somewhat hard 12/11/2022[facility] [place] of Occupational Health - Occupational Stress QuestionnaireAnswerDate RecordedDo you feel stress - tense, restless, nervous, or anxious, or unable to sleep at night because yourmind is troubled all the time - these days?Only a tifcmx9312/11/2022Exercise Vital SignAnswerDate Recorded On average, how many [...] steady place to sleep or slept in ashelter (including now)?No12/11/2022EducationAnswer Date RecordedWhat is the highest level of school you have completed or the highest degree you have received?11th grade12/10/2022Estimated Date of YmqcgiooLnfofcgvDpp06/06/2025Based on last menstrual period of 05/16/2024Sex and Gender InformationValueDate RecordedSex Assigned at LddavLtgmum86/25/2023 10:10 AM EDTLegal NvlAkeeso71/15/2023 6:51 PM EDTGender OammtdzkIzitwf22/25/2023 10:10 AM EDTSexual OrientationNot on filedocumented as of this encounter Last Filed Vital Signs Vital SignReadingTime TakenCommentsBlood Vcdkzhyr265/6001/05/2025 1:04 PM EDT Pulse--Temperature--Respiratory Rate--Oxygen Saturation--Inhaled Oxygen Concentration--Tvdrii20.2 kg (172 lb 6.4 oz)01/05/2025 1:04 PM EDTHeight--Body Mass Index29.5912 3:41 PM ESTdocumented in this encounter Progress Notes * Lissette Anton LPN - 01/05/2025 1:00 PM EDT Reason for Appointment: Patient ID: [...] Left 2019 OVARIAN CYST REMOVAL Left 05/20/2020 [facility] William VAGINAL DELIVERY REVIEW OF SYSTEMS Review [...] nursing note reviewed. Exam conducted with a medical device sales present. Vitals: Estimated body mass index is 29.59 kg/m?? as calculated from the following: Height as of 02/26/24: 5' 4 . Weight as of this encounter: 172 lb 6.4 oz. BP: 100/60 Patient's last menstrual period was 05/16/2024. Assessment/Plan ICD-10-CM 1. Third trimester ([facility]) Z34.93 2. 33 weeks gestation of ([facility]) Z3A.33 POCT urinalysis dipstick manually resulted Return OB: Patient presents today for a routine obstetrics appointment. Patient is currently 33w3d . Patient states she is doing well [...] Doc Thomas DO documented in this encounter Plan of Treatment DateTypeDepartmentCare Team (Latest Contact Info)Rydgboafpvh10/05/2025 1:50 PM ESTRoutine [facility] [address] [facility] [place] [address] Pretty Chaidez PA [address] [place] [address] documented as of this encounter Procedures Procedure NamePriorityDate/TimeAssociated DiagnosisCommentsPOCT URINALYSIS SLXALBCTAxcxvkf16/21/2025 1:04 PM EDT 33 weeks gestation of ([facility]) documented in this encounter Results * (ABNORMAL) POCT urinalysis dipstick manually resulted (01/05/2025 1:04 PM EDT) ComponentValueRef RangeTest MethodAnalysis TimePerformed AtPathologist SignatureColor, UAYellowClarity, UAClearGlucose, UA3+Negative - 1999(110) ++++ mg/dLBilirubin, UANegativeNegative - 4(70) +++ mg/dLKetones, UAPositive Negative - 160(16) ++++ mg/dLSpec Grav, UA1.0101 - 1.03Blood, UANegative Negative - 50 Randall/mcLpH, UA6.55 - 9Protein, UATraceNegative - 2000(20) ++++ mg/dLUrobilinogen, UA2.00.2 - 12 mg/dLLeukocytes, UATraceNegative - 500+++ Rick/mcLNitrite, UANegativeNegative - PositiveSpecimen (Source)Anatomical Location / LateralityCollection Method / VolumeCollection TimeReceived Time Urine01/05/2025 1:04 PM EDT Narrative Authorizing ProviderResult TypeResult StatusCorey William DOPOINT OF CARE TEST ENTER/EDIT ORDERABLESFinal Result documented in this encounter Visit Diagnoses Diagnosis Third trimester ([facility]) state, incidental 33 weeks gestation of ([facility]) documented in this encounter Care Teams Team MemberRelationshipSpecialtyStart DateEnd Date Danny Schuler MD [address] [address] [place] [address] PCP - GeneralFamily Medicine07/24/22 Danny Schuler MD [address] [facility] [address] [place] [address] PCP - Ziggy Richard06/16/20documented as of this encounter
[2025-01-06 14:58] VITALS: BP 112/61; PULSE 97
--- OUTSIDE RECORDS SUMMARY | 2025-01-06 14:58 | XMS_ITS | Clinical Summary ---
Author Organization [facility] Healthcare Address [address] [place] [address] Care Team Providers Care Supervisor [employer] Name Role Phone Danny Panye MD Primary Care Provider [phone] Danny Payne MD Unavailable [phone] Allergies Active AllergyReactionsCriticalityNoted DxsuGgxhmhytGflpfizutmyvNvrjg71/05/2021 Other Reaction(s): hives IofffPzlrYeo77/05/2021 Other Reaction(s): Unknown Qajkxbhfv79/25/2023 Other Reaction(s): body numbness Medications MedicationSigDispense QuantityRefillsLast FilledStart DateEnd DateStatus ondansetron (Zofran) 4 MG tablet Indications:Nausea and vomiting in ([facility])Take 1 tablet (4 mg) by mouth every 6 (six) hours if needed for nausea or vomiting for up to 30 doses Take 1 tablet by mouth every 6 hours as needed for nausea. 30 tablet 12/23/2024tive ondansetron (Zofran) 4 MG tablet Indications:Nausea and vomiting in ([facility])Take 1 tablet (4 mg) by mouth every 6 (six) hours if needed for nausea or vomiting for up to 30 doses Take 1 tablet by mouth every 6 hours as needed for nausea. 30 tablet Discontinued(Reorder) terconazole (Terazol 7) 0.4 % vaginal cream Indications:Yeast infectionInsert 1 applicator into the vagina at bedtime for 7 days 45 g Expired fluconazole (Diflucan) 150 MG tablet Indications:Yeast infectionTake 1 tablet (150 mg) by mouth 1 (one) time for 1 dose Repeat in 7 days if symptoms persist. 2 tablet Expired Active Problems ProblemNoted DateDiagnosed DateAbnormal bleeding in menstrual cycle02/19/2024 Status post arthroscopic reconstruction of anterior cruciate ligament of left knee using quadricepstendon wqydfyhlm55/23/2024cute pain of left knee04/22/2023 Chronic tldvpfk2112/10/2022igarette zamhan0012/10/2022yst of ovary12/10/2022 Gabby's evqykiy7312/10/2022Hypotension determined by /25/2023 Juvenile osteochondrosis of tibial zdcyhalmxu93/25/2023Non morbid obesity due to excess duseidgk14/25/2023ostural orthostatic tachycardia syndrome (POTS) 12/10/2022Subclinical jnhuevlqkxcrcw81/25/2023Estimated Date of Delivery RvsvofqcTbn69/06/2025Based on last menstrual period of 05/16/2024 Resolved Problems ProblemNoted DateDiagnosed DateResolved DateOverweight (BMI 25.0-29.9)12/10/2022 02/19/2024 Encounters DateTypeDepartmentCare YvafJbywndweagf38/21/2025 1:00 PM EDTRoutine [facility] [address] [place] [phone] Sintia Thomas DO Third trimester ([facility]); 33 weeks gestation of ([facility])01/05/2025amboo flowsheet [facility] [address] [place] [address] Sintia Thomas DO 01/02/2025linisync Result Encounter NOMS External Department Unsolicited Provider, Generic External Data 12/26/2024linisync Result Encounter NOMS External Department Unsolicited Provider, Generic External Data 12/26/2024linisync Result Encounter NOMS External Department Unsolicited Provider, Generic External Data 12/26/2024linisync Result Encounter NOMS External Department Unsolicited William, Sintia, 12/23/2024 2:00 PM EDTRoutine [facility] [address] [place] [address] Jessica Steen NP Third trimester ([facility]); 31 weeks gestation of ([facility])12/23/2024Refill [facility] [address] [place] [address] Azalea Schmitz MA Nausea and vomiting in ([facility])12/23/2024amboo flowsheet [facility] [address] [place] [address] Jessica Steen NP 12/09/2024 2:00 PM EDTRoutine [facility] [address] [place] [address] Sintia Thomas, Third trimester ([facility]); 29 weeks gestation of ([facility]); Yeast eyrpmnjwi18/24/2025amb flowsheet [facility] [address] [place] [address] Sintia Thomas, 12/01/2024Telephone [facility] [address] [place] [address] Azalea Schmitz MA 11/27/2024bstract [facility] [address] [place] [address] Sintia Thomas, DO 11/25/2024 1:50 PM EDTRoutine [facility] [address] [place] [address] Jessica Steen NP Second trimester ([facility]); 27 weeks gestation of ([facility]); Gabby's rxehxfj9311/25/2024amboo flowsheet [facility] [address] [place] [phone] Jessica Steen NP 11/24/2024linisync Result Encounter NOMS External Department Unsolicited Provider, Generic External Data 11/19/2024Telephone [facility] [address] [place] [address] Janet Narayanan MA 11/12/2024linisync Result Encounter NOMS External Department Unsolicited Provider, Generic External Data 11/06/2024Orders Only [facility] [address] [place] [address] Coretta Cardenas LPN 11/05/2024Telephone [facility] [address] [place] [address] Azalea Schmitz MA 11/04/2024Telephone [facility] [address] [place] [address] [phone] Azalea Schmitz MA 11/03/2024linisync Result Encounter NOMS External Department Unsolicited Provider, Generic External Data 11/03/2024Telephone [facility] [address] [place] [address] [phone] Azalea Schmitz MA 10/28/2024 2:30 PM EDTRoutine [facility] [address] [place] [phone] Pretty Chaidez PA Second trimester ([facility]); 23 weeks gestation of ([facility]); Diabetes mellitus screening; STD exposure; Well woman exam with routine gynecological exam; Heart jeqcebohmipm49/13/2025linisync Result Encounter NOMS External Department Unsolicited Provider, Generic External Data 10/28/2024External Result Encounter NOMS External Department Unsolicited Jessica Steen NP 10/28/2024amboo flowsheet [facility] [address] [place] [address] Pretty Chaidez PA 10/06/2024linisync Result Encounter NOMS External Department Unsolicited Sintia Thomas DO from Last 3 Months Immunizations ImmunizationAdministration DatesNext DueDTaP / HiB / IPV1999,1999 DTaP / Hib03/26/2000Hep A, ped/adol, 2 dose03/31/2012,08/31/2011Hep B, Adolescent or Gfygrvggd82/27/2001,1999,1999Hep B, adult11/12/2016Hib (HbOC)09/11/2000Hib / Hep B009/11/2000IPV09/11/2000MMR09/11/2000Meningococcal STF8D5111/12/2016Pneumococcal Conjugate PCV 7003/26/20005897Usgn43/15/2012Varicella 08/31/2011 Family History Medical HistoryRelationNameCommentsNo Known ProblemsBrotherHyperlipidemia Maternal GrandfatherHypertensionMaternal GrandfatherCancerMaternal Grandmother SylviaThyroid diseaseMotherPOTSMother's BrotherPOTSMother's SisterDiabetes Paternal Grandfather.HyperlipidemiaPaternal Grandfather.HypertensionPaternal Grandfather.RelationNameStatusCommentsBrother3 brothersFatherAliveMaternal GrandfatherMaternal GrandmotherSylviaMotherAliveMother's BrotherAliveMother's SisterAliveOtherMFT and Kavin POTSPaternal Grandfather.AliveSonAlive1 son Social History Tobacco UseTypesPacks/DayYears UsedDateSmoking Tobacco: Some DaysCigarettes Smokeless Tobacco: Never Tobacco Cessation:Ready to Q uit: Not Asked; Counseling Given: Not Answered Alcohol UseStandard Drinks/WeekCommentsNot Currently0 (1 standard drink = 0.6 oz pure alcohol)2-4 drinks per weekHumiliation, Afraid, Rape, and Kick questionnaireAnswerDate RecordedWithin the last year, have you been afraid of your partner or ex-partner?No12/11/2022Within the last year, have you been humiliated or emotionally abused in other ways by your partner or ex-partner?No 12/11/2022Within the last year, have you been kicked, hit, slapped, or otherwise physically hurt by your partner or ex-partner?No12/11/2022Within the last year, have you been raped or forced to have any kind of sexual activity by your part ner or ex-partner?No12/11/2022Social Connection and Isolation PanelAnswerDate RecordedIn a typical week, how many times do you talk on the phone with family, friends, or neighbors?Three times a week12/11/2022How often do you get together with friends or relatives?Once a week12/11/2022How often do you attend evangelical or voodoo services?More than 4 times per year12/11/2022o you belong to any clubs or organizations such as evangelical groups, unions, fraternal or athletic carmen ups, or school groups?No12/11/2022How often do you attend meetings of the clubs or organizations you belong to?Never12/11/2022re you , , , , never , or living with a partner?Odxpglq2512/11/2022 AUDIT-CAnswerDate RecordedQ1: How often do you have a drink containing alcohol? 2-4 times a month12/11/2022Q2: How many drinks containing alcohol do you have on a typical day when you are drinking?1 or Q3: How often do you have six or more drinks on one occasion?Never12/11/2022Overall Financial Resource Strain (CARDIA)AnswerDate RecordedHow hard is it for you to pay for the very basics like food, housing, medical care, and heating?Somewhat hard12/11/2022 [employer] - Occupational Stress Questionnaire AnswerDate RecordedDo you feel stress - tense, restless, nervous, or anxious, or unable to sleep at night because yourmind is troubled all the time - these days? Only a lhlhhz6712/11/2022Exercise Vital SignAnswerDate RecordedOn average, how many days per week do [...] you from medical appointments or from getting medications?No 12/11/2022In the past 12 months, has lack of transportation kept you from meetings, work, or from getting things needed for daily living?No12/11/2022 Housing Stability Vital SignAnswerDate RecordedIn the last 12 months, was there a time when you were not able to pay the mortgage or rent on time?No12/11/2022In the last 12 months, how many places have you lived?In the last 12 months, was there a time when you did not have a steady place to sleep or slept in [facility] (including now)?No12/11/2022EducationAnswerDate RecordedWhat is the highest level of school you have completed or the highest degree you have received?11th grade12/10/2022Estimated Date of DeliveryCommentsYes 5Based on last menstrual period of 05/16/2024Sex and Gender Information ValueDate RecordedSex Assigned at ZgsdhNzsgku95/25/2023 10:10 AM EDTLegal Sex Eqhzdg5805/30/2022 6:51 PM EDTGender UraktamgOyqtdt95/25/2023 10:10 AM EDTSexual OrientationNot on file Last Filed Vital Signs Vital SignReadingTime TakenCommentsBlood Yquxprxp803/6010/ 1:04 PM EDT Junua605702/19/2024 3:26 PM DVVFugpccdfizj75.4 ??C (97.5 ??F)05/03/2023 11:22 AM ESTRespiratory Rate--Oxygen Jdqfjctols45%02/19/2024 3:26 PM ESTInhaled Oxygen Concentration--Esdqlh13.2 kg (172 lb 6.4 oz)01/05/2025 1:04 PM NOVAzbpsy884.6 cm (5' 4 )02/26/2024 3:41 PM ESTBody Mass Index29.5902/26/2024 3:41 PM EST Plan of Treatment DateTypeDepartmentCare Team (Latest Contact Info)Etuxtvmoffu76/05/2025 1:50 PM ESTRoutine [facility] [address] [place] [address] Pretty Chaidez PA [address] [place] [address] Health MaintenanceDue DateLast DoneCommentsInfluenza Vaccine (#1)09/14/2025 Postponed from 11/16/2024 (Patient Refused) Procedures Procedure NamePriorityDate/TimeAssociated DiagnosisCommentsPOCT URINALYSIS AFICVZYOPgiemnu89/21/2025 1:04 PM EDT 33 weeks gestation of ([facility]) US OB BPP W NON-MSCHUR4501/02/2025 3:02 PM EDT US OB UKOJQV6812/26/2024 11:31 AM EDT US OB BPP W NON-AIGOIY1012/26/2024 11:19 AM EDT ALL THYROID STIM CRGVGNKVimehfw53/11/2025 8:13 AM EDT POCT URINALYSIS JKAJRVLVQbzubre91/08/2025 2:01 PM EDT 31 weeks gestation of ([facility]) POCT URINALYSIS SEKWGZNKVhoqryq31/24/2025 2:14 PM EDT Third trimester ([facility]) POCT URINALYSIS NXOLQNRHTalhmon91/10/2025 3:33 PM EDT Second trimester ([facility]) CA ECHO DOPPLER PASJUWPX02/09/2025 4:39 PM EDT ECG 12-LEAD11/12/2024 12:06 PM EDT ALL THYROID STIM EFLSFBALgenney78/19/2025 4:00 PM EDT GLUCOSE 1 DSIMTfmhmiz57/19/2025 4:00 PM EDT ALL CBC WITH AUTO GBEZWpsidsb46/19/2025 4:00 PM EDT RECURRENT VAGINITIS (HTRX)Douteza9410/28/2024 4:48 PM EDT POCT URINALYSIS AGCJAVZXSjfkbcg15/13/2025 2:43 PM EDT Second trimester ([facility]) IGP,APTIMA HPV,AGE HPOAXjgcqzu27/13/2025 2:25 PM EDT PAP HXUJSNdjwqqv29/13/2025 12:00 AM EDTUS OB CERVICAL YAGDCT7610/06/2024 2:26 PM EDT from Last 3 Months Results * (ABNORMAL) POCT urinalysis dipstick manually resulted (01/05/2025 1:04 PM EDT) Only the most recent of5 resultswithin the time period is included. ComponentValueRef RangeTest MethodAnalysis TimePerformed AtPathologist Signature Color, UAYellowClarity, UAClearGlucose, UA3+Negative - 2000(110) ++++ mg/dL Bilirubin, UANegativeNegative - 4(70) +++ mg/dLKetones, UAPositiveNegative - 160(16) ++++ mg/dLSpec Grav, UA1.0101 - 1.03Blood, UANegativeNegative - 50 Randall/mcLpH, UA6.55 - 9Protein, UATraceNegative - 2000(20) ++++ mg/dLUrobilinogen, UA2.00.2 - 12 mg/dLLeukocytes, UATraceNegative - 500+++ Rick/mcLNitrite, UA NegativeNegative - PositiveSpecimen (Source)Anatomical Location / Laterality Collection Method / VolumeCollection TimeReceived BmceRcofn29/21/2025 1:04 PM EDT Narrative Authorizing ProviderResult TypeResult StatusCorey William DOPOINT OF CARE TEST ENTER/EDIT ORDERABLESFinal Result * US OB BPP W NON-STRESS (01/02/2025 3:02 PM EDT) Only the most recent of2 resultswithin the time period is included. Anatomical RegionLateralityModalityOtherSpecimen (Source)Anatomical Location / LateralityCollection Method / VolumeCollection TimeReceived Time01/02/2025 3:02 PM EDT Narrative 01/02/2025 3:05 PM EDT [facility] ?[address] ? [place] [address] ? Ultrasound Report ? Signed ? Patient: ALETA CASTRO ?MR#: [id number] ?? : 2000 ?Acct:[id number] ?? Age/Sex: 24 / F ?ADM Date: 01/02/25 ?? Loc: US ? Attending Dr: Sintia Thomas D.O. ? Ordering Physician: Sintia Thomas D.O. ?? Date of Service: 01/02/25 ?? Procedure(s): US OB BPP w non-stress ?? Accession Number(s): [id number] ? cc: Sintia Thomas D.O.; DANNY PAYNE ? [facility] ? [address] ? [place] [address] ? Patient Name: ?? ALETA CASTRO ? MRN: [facility]:[id number] ? date: 2000 ?Sex: F ?? Assigned Patient Location: [facility] ?? Current Patient Location: ? Accession/Order Number: [id number] ?? Exam Date: 01/02/2025 ??09:00 ?Report Date: 01/02/2025 ??15:02 ? At the request of: ?? SINTIA ??WILLIAM ??DO ? Procedure: ??US OB BPP w non-stress ? US OB BPP w non-stress ??01/02/2025 9:31 AM ? SIGNS AND SYMPTOMS: ?? 02/20/2025 ?? 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 PROTOCOL: Transabdominal sonographic imaging of the gravid uterus ? COMPARISON: None ? FINDINGS: ? Estimated age: 33 weeks 0 days. ? heart rate: 140 bpm ? Amniotic fluid index: 13.84 cm with the deepest vertical pocket measuring 6.39 ?? cm. ? Biophysical profile: ? breathing movements: 2/2 ? Gross body movements: 2/2 ? tone: 2/2 ? Amniotic fluid volume: 2/2 ? US/US OB BPP w non-stress ?? IMPRESSION: ? Biophysical profile: 8/8 ? Impression dictated by: Emmanuel Dalton M.D. ??01/02/2025 3:02 PM ? Dictation Location: RADIO-PC-17 ? Electronically authenticated by: [id number] ??Y ?? Date: 01/02/2025 ??15:02 ? Dictated By: ?Emmanuel Dalton M.D. ? Signed By: ?10/18/25 1505 ? DD/ 1502 ? TD/TT: ? Administrative Office Clerk: Procedure Note Radiology, Radiologist, - 01/02/2025 [place] [address] Ultrasound Report Signed Patient: ALETA CASTRO#: [id number] : 2000Acct:[id number] Age/Sex: 24 / FADM Date: 01/02/25 Loc: US Attending Dr: Sintia Thomas D.O. Ordering Physician: Sintia Thomas D.O. 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 heart rate: 140 bpm Amniotic fluid index: 13.84 cm with the deepest vertical pocket measuring6.39 cm. Biophysical profile: breathing movements: 2/2 Gross body movements: 2/2 tone: 2/2 Amniotic fluid volume: 2/2 US/US OB BPP w non-stress IMPRESSION: Biophysical profile: 10/23 Impression dictated by: Emmanuel Dalton M.D. 01/02/2025 3:02 PM Dictation Location: [place] [address] Electronically authenticated by: [id number] Y Date: 5:02 Dictated By: Emmanuel Dalton M.D. Signed By:01/02/25 1505 DD/ 1502 TD/TT: Administrative Office Clerk: Authorizing ProviderResult TypeResult StatusGeneric External Data Provider CLINISYNC IMAGINGFinal Result * US OB GROWTH (12/26/2024 11:31 AM EDT)Anatomical RegionLateralityModalityOther Specimen (Source)Anatomical Location / LateralityCollection Method / Volume Collection TimeReceived Time12/26/2024 11:31 AM EDT Narrative 12/26/2024 11:33 AM EDT [facility] ?[address] ? [place] [address] ? Ultrasound Report ? Signed ? Patient: RAKEL,ALETA N ?MR#: [id number] ?? : 2000 ?Acct:[id number] ?? Age/Sex: 24 / F ?ADM Date: 12/26/24 ?? Loc: US ? Attending Dr: Sintia Thomas D.O. ? Ordering Physician: Sintia Thomas D.O. ?? Date of Service: 12/26/24 ?? Procedure(s): US OB growth ?? Accession Number(s): [id number] ? cc: Sintia Thomas D.O.; DANNY PAYNE ? [facility] ? [address] ? [place] [address] ? Patient Name: ?? SUMMER N RAKEL ? MRN: [facility]:[id number] ? date: 2000 ?Sex: F ?? Assigned Patient Location: ?? Current Patient Location: ? Accession/Order Number: [id number] ?? Exam Date: 12/26/2024 ??09:00 ?Report Date: 12/26/2024 ??11:31 ? At the request of: ?? SINTIA ??WILLIAM ??DO ? Procedure: ??US OB growth ? Obstetric ultrasound for growth ? INDICATION: Gabby's disease ? FINDINGS: Single live anterior cephalic presentation longitudinal ?? lie. ??Amniotic fluid index 12.4 cm between the gestational age fifth and 95th ?? percentile. ??Largest pocket of fluid 5.1 cm. ?? heart rate 1 52 bpm. ? motion documented by the check processor.. ? Estimated weight 2093 g 71.4%. ? Gestation age 32 weeks and 0 days. ? Biparietal diameter 7.93 m. ? Head circumference 30.7 cm. ? Otherwise the 10.6 cm. ? Abdominal circumference 28.9 cm. ? Femur length 6.4 cm. ? US/US OB growth ?? IMPRESSION: Single live intrauterine of approximately 30 weeks ? Impression dictated by: Deshaun Aguilar M.D. ??12/26/2024 11:31 AM ? Dictation Location: [facility]-- ? Electronically authenticated by: [id number] ??Y ?? Date: 12/26/2024 ??11:31 ? Dictated By: ?Deshaun Aguilar M.D. ? Signed By: ?12/26/24 1133 ? DD/ 1131 ? TD/TT: ? Administrative Office Clerk: Procedure Note Radiology, Radiologist, - 12/26/2024 [place] [address] Ultrasound Report Signed Patient: ALETA CASTRO NMR#: [id number] : 2000Acct:[id number] Age/Sex: 24 / FADM Date: 12/26/24 Loc: US Attending Dr: Sintia Thomas D.O. Ordering Physician: Sintia Thomas D.O. Date of Service: 12/26/24 Procedure(s): US OB growth Accession Number(s): [id number] cc: Sintia Thomas D.O.; DANNY PAYNE [place] [address] Patient Name: ALETA CASTRO MRN: [id number] date: 2000 Sex: F Assigned Patient Location: Current Patient Location: Accession/Order Number: [id number] Exam Date: 12/26/2024 09:00 Report Date: 12/26/2024 11:31 At the request of: SINTIA THOMAS DO Procedure: US OB growth Obstetric ultrasound for growth INDICATION: Gabby's disease FINDINGS: Single live anterior cephalic presentationlongitudinal lie. Amniotic fluid index 12.4 cm between the gestational age fifth emm34mi percentile. Largest pocket of fluid 5.1 cm. heart rate 1 52 bpm. motion documented by the check processor.. Estimated weight 2093 g 71.4%. Gestation age 32 weeks and 0 days. Biparietal diameter 7.93 m. Head circumference 30.7 cm. Otherwise the 10.6 cm. Abdominal circumference 28.9 cm. Femur length 6.4 cm. US/US OB growth IMPRESSION: Single live intrauterine of approximately 30 weeks Impression dictated by: Deshaun Aguilar M.D. 12/26/2024 11:31 AM Dictation Location: [place] [address] Electronically authenticated by: [id number] Y Date: 1:31 Dictated By: Deshaun Aguilar M.D. Signed By:12/26/24 1133 DD/ 1131 TD/TT: Administrative Office Clerk: Authorizing ProviderResult TypeResult StatusGeneric External Data Provider CLINISYNC IMAGINGFinal Result * (ABNORMAL) ALL THYROID STIM HORMONE (12/26/2024 8:13 AM EDT) Only the most recent of2 resultswithin the time period is included. ComponentValueRef RangeTest MethodAnalysis TimePerformed AtPathologist Signature THYROID STIMULATING HORMONE0.131(L)0.358 - 3.740 uIU/mLTBHSpecimen (Source) Anatomical Location / LateralityCollection Method / VolumeCollection Time Received Time12/26/2024 8:13 AM EDT1 8:13 AM EDT Narrative [facility] - 12/26/2024 9:37 AM EDT Authorizing ProviderResult TypeResult StatusGeneric External Data Provider CLINISYNCFinal ResultPerforming OrganizationAddressCity/State/ZIP CodePhone Number [facility] * CA ECHO DOPPLER COMPLETE (11/24/2024 4:39 PM EDT)Anatomical RegionLaterality ModalityOtherSpecimen (Source)Anatomical Location / LateralityCollection Method / VolumeCollection TimeReceived Time11/24/2024 4:39 PM EDT Narrative 11/24/2024 4:40 PM EDT [facility] ?[address] ? [place] [address] ? Cardiology Report ? Signed ? Patient: RAKEL,ALETA N ?MR#: [id number] ?? : 2000 ?Acct:[id number] ?? Age/Sex: 24 / F ?ADM Date: 11/12/24 ?? Loc: CARD ? Attending Dr: Jessica Steen ? Ordering Physician: Jessica Steen ?? Date of Service: 11/12/24 ?? Procedure(s): CA echo doppler complete ?? Accession Number(s): [id number] ? cc: Jessica Steen; DANNY PAYNE ? Patient Name: ? [facility] ? MR#: [id number] ? : 2000 ? Exam Date: 11/12/2024 ?? Ordering Doctor: JESSICA STEEN CNP ? ECHOCARDIOGRAM REPORT ? PROCEDURE: ? CA ECHO DOPPLER COMPLETE ? INDICATIONS: ? Palpitations ? COMPARISON: ? None. ? DESCRIPTION: ? COMPLETE ECHOCARDIOGRAM Real-time transthoracic ?? echocardiography with 2D, M-mode, spectral and color flow Doppler performed. ? QUALITY: ? Technical quality was good. ? LEFT VENTRICLE: ? Normal chamber size. Normal left ventricular wall ?? thickness. ?? LV EF: ? Global left ventricular systolic function is normal; visually ?? estimated ejection fraction is 55-60 %. ??No significant wall motion ?? abnormalities. ?? DIASTOLIC: ? Normal diastolic function. ?? ATRIAL SEPTUM: ? Inadequately seen. ?? LEFT ATRIUM: ? Normal chamber size. ?? RIGHT ATRIUM: ? Normal chamber size. ?? RIGHT VENTRICLE: ? Normal chamber size. Normal right ventricular systolic ?? function. ??A moderator band (normal variant) is seen in the RV apex. ?? TRICUSPID VALVE: ? Normal mobility and thickness. No stenosis with trivial ?? regurgitation. No evidence of pulmonary hypertension. RVSP 16mmHg. ? MITRAL VALVE: ? Normal mobility and thickness. ?? No evidence of mitral valve ?? stenosis. ??There is no mitral annular calcification. Trivial mitral ?? regurgitation. ? AORTIC VALVE: ? Normal trileaflet appearance. No visible sclerosis. ??Normal ?? leaflet mobility. ??No evidence of aortic valve stenosis. Trivial aortic ?? regurgitation. ? AORTIC ROOT: ? Normal diameter and appearance. ? PULMONIC VALVE: ? Normal thickness and mobility. No stenosis. No ?? regurgitation. ? PERICARDIUM: ? No pericardial effusion. ? IVC: ? Collapses with inspiration. Normal size. ? CONCLUSION: ? 1. Global left ventricular systolic function is normal; visually estimated ?? ejection fraction is 55 to 60% ?? 2. Normal right ventricular size and systolic function ?? 3. Normal diastolic function ?? 4. The left atrium is normal in size ?? 5. No significant valvular abnormalities ? Adult Echocardiography Procedure Report ?? Left Ventricle ?? LVEDD (3.7 - 5.6 cm): ? 4.57 cm ?? LVESD (2.2 - 4.0 cm): ? 3.23 cm ?? LVIVS thickness (0.6 - 1.2 cm): ? 0.83 cm ?? LVPW thickness (0.5 - 1.0 cm): ? 0.99 cm ?? e': ? 0.15 m/s ?? E - e': ? 4.12 ?? LVOT Max Gradient: ? 2.99 mm[Hg] ?? LVOT Area (cm2): ? 0.86 m/s ?? Peak Velocity (LVOT): ? 0.86 m/s ?? Mean Velocity (LVOT): ? 0.61 m/s ?? LVOT Diameter ? 2.15 cm ?? Left Ventricular Ejection Fraction: ? 69.67 % ?? Left Atrium ?? LA Volume Index (2D A2C): ? 22.19 ml/m2 ?? Left Atrium Systolic Dimension: ? 3.67 cm ?? Mitral Valve ?? MV E to A Ratio: ? 1.37, 1.16 ?? Mitral Valve A-Wave Peak Velocity: ? 0.48 m/s ?? Mitral Valve E-Wave Peak Velocity: ? 0.60 m/s ?? Right Ventricle ?? RV Internal Diastolic Dimension: ? 2.74 cm ?? Aorta ?? AO Root Diam: ? 3.10 cm ?? Ascending Ao Diam: ? 2.55 cm ?? Aortic Valve ?? AoV Area (Peak Billy): ? 2.36 cm2, 2.36 cm2 ?? AoV Area (VTI): ? 2.62 cm2, 2.62 cm2 ?? Peak Velocity(Antegrade Flow): ? 1.32 m/s ?? Peak Gradient(Antegrade Flow): ? 7.01 mm[Hg] ?? Mean Velocity(Antegrade Flow): ? 0.85 m/s ?? Mean Gradient(Antegrade Flow): ? 3.36 mm[Hg] ?? Velocity Time Integral: ? 21.62 cm ?? Tricuspid Valve ?? Peak Velocity (Regurgitant Flow): ? 1.83 m/s ?? Pulmonic Valve ?? Mean Gradient: ? 2.09 mm[Hg], 2.35 mm[Hg], 2.17 mm[Hg] ?? Mean Velocity: ? 0.68 m/s, 0.72 m/s, 0.69 m/s ?? Peak Velocity: ? 0.98 m/s ?? Peak Gradient: ? 3.48 mm[Hg], 3.98 mm[Hg], 3.98 mm[Hg] ?? Right Atrium ?? Right Atrium Systolic Pressure: ? 16.72 ml, 16.72 ml ? Dictated by: Davian Ruano M.D. on 11/24/2024 at 16:35 ? Approved by: Davian Ruano M.D. on 11/24/2024 at 16:39 ? Dictated By: ?Davian Ruano M.D. ? Signed By: ?11/24/24 1640 ? DD/ 1639 ? TD/TT: ? Administrative Office Clerk: Procedure Note Radiology, Radiologist, - 11/24/2024 [place] [address] Cardiology Report Signed Patient: ALETA CASTRO NMR#: [id number] : 2000Acct:[id number] Age/Sex: M Date: 11/12/24 Loc: CARD Attending Dr: Jessica Steen Ordering Physician: Jessica Steen Date of Service: 11/12/24 Procedure(s): CA echo doppler complete Accession Number(s): [id number] cc: Jessica Steen; DANNY PAYNE Patient Name: ALETA CASTRO MR#: [id number] : 2000 Exam Date: 11/12/2024 Ordering Doctor: [...] M.D. Signed By:11/24/24 1640 DD/ 1639 TD/TT: Administrative Office Clerk: Authorizing ProviderResult TypeResult StatusGeneric External Data Provider CLINISYNC IMAGINGFinal Result * ECG 12-LEAD (11/12/2024 12:06 PM EDT)Anatomical RegionLateralityModalityOther Specimen (Source)Anatomical Location / LateralityCollection Method / Volume Collection TimeReceived Time11/12/2024 12:06 PM EDT Narrative 11/13/2024 1:34 PM EDT [facility] ?[address] ? [place] [address] ? Electrocardiograph Report ? Signed ? Patient: RAKEL,SUMMER N ?MR#: [id number] ?? : 2000 ?Acct:[id number] ?? Age/Sex: 24 / F ?ADM Date: 11/12/24 ?? Loc: CARD ? Attending Dr: Jessica Steen ? Ordering Physician: Jessica Steen ?? Date of Service: 11/12/24 ?? Procedure(s): ECG 12 lead ?? Accession Number(s): [id number] ? cc: ?[facility] ? Test Date: ?2024-11-12 ?? Pat Name: ? SUMMER RAKEL ?Department: ? Room: ? - ?? Gender: ? Female ? Childcare Aide: ? : ?2000 ? Requested By: JESSICA ENIO ?? Order Number: [id number] ?Reading MD: ?? Samar Samantha ? Measurements ?? Intervals ?Braggs ? Rate: ? 79 ? P: ?42 ?? NM: ? 158 ?QRS: ?81 ?? QRSD: ? 90 ? T: ?41 ?? QT: ? 353 ? QTc: ?405 ? Interpretive Statements ?? SINUS RHYTHM ?? Normal EKG ?? No previous ECG available for comparison ?? Electronically Signed On 11-13-2024 13:34:21 EDT by Bibi Singh ? Dictated By: ?Bibi Singh M.D. ? Signed By: ?08/29/25 1334 ?08/29/25 1334 ? DD/DT: //25 1206 ? TD/TT: ? Administrative Office Clerk: Procedure Note Radiology, Radiologist, MD - 11/13/2024 [place] [address] Electrocardiograph Report Signed Patient: ALETA CASTRO#: [id number] : 2000Acct:[id number] Age/Sex: 24 / FADM Date: 11/12/24 Loc: CARD Attending Dr: Jessica Steen Ordering Physician: Jessica Steen Date of Service: 11/12/24 Procedure(s): ECG 12 lead Accession Number(s): [id number] cc: [facility] Test Date: 2024-11-12 Pat Name: ALETA CASTRO Department: Room: - Gender: Female Childcare Aide: : 2000 Requested By: JESSICA STEEN Order Number: [id number] Reading MD: Bibi Singh Measurements Intervals Braggs Rate: 79 P: 42 NM: 158 QRS: 81 QRSD: 90 T: 41 QT: 353 QTc: 405 Interpretive Statements SINUS RHYTHM Normal EKG No previous ECG available for comparison Electronically Signed On 11-13-2024 13:34:21 EDT by Bibi Singh Dictated By: Bibi Singh M.D. Signed By:11/13/24 1334 11/13/24 1334 DD/ 1206 TD/TT: Administrative Office Clerk: Authorizing ProviderResult TypeResult StatusGeneric External Data Provider CLINISYNC IMAGINGFinal Result * GLUCOSE 1 HOUR (11/03/2024 4:00 PM EDT)ComponentValueRef RangeTest Method Analysis TimePerformed AtPathologist SignatureGLUCOSE 1 XHBY896<130 mg/dLTBH Specimen (Source)Anatomical Location / LateralityCollection Method / Volume Collection TimeReceived Time11/03/2024 4:00 PM EDT11/03/2024 4:01 PM EDT Narrative JEFFRY - 11/03/2024 6:33 PM EDT Authorizing ProviderResult TypeResult StatusJessica Conraderly LAB BLOOD ORDERABLESFinal ResultPerforming OrganizationAddressCity/State/ZIP CodePhone Number JEFFRY [facility] * (ABNORMAL) ALL CBC WITH AUTO DIFF (11/03/2024 4:00 PM EDT)ComponentValueRef RangeTest MethodAnalysis TimePerformed AtPathologist SignatureTBH WBC6.64.0 - 11.0 10 3/uLTBHTBH RBC3.34(L)4.20 - 5.40 10 6/uLTBHTBH HGB10.8(L)12.0 - 16.0 g/dLTBHTBH HCT31.2(L)36.0 - 48.0 %TBHTBH MCV93.481.0 - 99.0 fLTBHTBH MCH32.3 26.7 - 34.0 pgTBHTBH MCHC34.629.9 - 35.2 g/dLTBHTBH RDW12.711.0 - 15.0 %TBHTBH GWP406973 - 450 10 3/uLTBHTBH MPV9.79.5 - 13.5 fLTBHNEUTROPHILS PERCENT AUTO 76.4(H)43.0 - 75.0 %TBHLYMPHOCYTES PERCENT AUTO15.0(L)20.5 - 60.0 %TBH MONOCYTES PERCENT AUTO7.71.7 - 12.0 %TBHTBH EO %0.5(L)0.9 - 7.0 %TBHBASOPHILS PERCENT AUTO0.20.2 - 2.0 %TBHIMMATURE GRANULOCYTES PCT AUTO0.20.0 - 0.5 %TBH NEUTROPHILS ABSOLUTE AUTO5.01.4 - 6.5 10 3/uLTBHLYMPHOCYTES ABSOLUTE AUTO1.0 (L)1.2 - 3.8 10 3/uLTBHMONOCYTES ABSOLUTE AUTO0.50.3 - 0.8 10 3/uLTBHTBH EO # 0.00.0 - 0.7 10 3/uLTBHBASOPHILS ABSOLUTE AUTO0.00.0 - 0.1 10 3/uLTBHIMMATURE GRANULOCYTES ABS AUTO0.010.00 - 0.03 10 3/uLTBHSpecimen (Source)Anatomical Location / LateralityCollection Method / VolumeCollection TimeReceived Time 11/03/2024 4:00 PM EDT11/03/2024 4:01 PM EDT Narrative CLINISYNC - 11/03/2024 4:26 PM EDT Authorizing ProviderResult TypeResult StatusJessica Steen NPCLINISYNCFinal ResultPerforming OrganizationAddressCity/State/ZIP CodePhone Number CLINISYNC TB * RECURRENT VAGINITIS (HTRX) (10/28/2024 4:48 PM EDT)ComponentValueRef RangeTest MethodAnalysis TimePerformed AtPathologist SignatureATOPOBIUM HWFSWAY843.961 - 24.689 ppm10/30/2024 7:27 AM EDTHealthTrackRx at LabPortATOPOBIUM VAGINAENot Nnxhsehn20.961 - 24.689 ppm10/30/2024 7:27 AM EDTHealthTrackRx at LabPortBVAB 2,3 (BACTERIAL VAGINOSIS ASSOCIATED BACTERIA 2, 3); MOBILUNCUS YOL048.961 - 24.689 ppm10/30/2024 7:27 AM EDTHealthTrackRx at LabPortBVAB 2,3 (BACTERIAL VAGINOSIS ASSOCIATED BACTERIA 2, 3); MOBILUNCUS SPPNot Tzgfieyy56.961 - 24.689 ppm10/30/2024 7:27 AM EDTHealthTrackRx at LabPortCANDIDA ALBICANS, PARAPSILOSIS, SOWBMVHYOR085.000 - 30.347 ppm10/30/2024 7:27 AM EDT [facility] at LabPortCANDIDA ALBICANS, PARAPSILOSIS, TROPICALISNot Detected 23.000 - 30.347 ppm10/30/2024 7:27 AM EDTHealthTrackRx at LabPortCANDIDA GJXZWCDT661.000 - 31.618 ppm10/30/2024 7:27 AM EDTHealthTrackRx at LabPort RICKEY GLABRATANot Xuflnsgg88.000 - 31.618 ppm10/30/2024 7:27 AM EDT [facility] at LabPortCANDIDA PKXFPH414.000 - 30.873 ppm10/30/2024 7:27 AM EDTHealthTrackRx at LabPortCANDIDA KRUSEINot Gnrxjjbw37.000 - 30.873 ppm 10/30/2024 7:27 AM EDTHealthTrackRx at LabPortCHLAMYDIA NRTXOEZMIUM204.000 - 31.586 ppm10/30/2024 7:27 AM EDTHealthTrackRx at LabPortCHLAMYDIA TRACHOMATIS Not Wvgjyyts08.000 - 31.586 ppm10/30/2024 7:27 AM EDTHealthTrackRx at LabPort GARDNERELLA RZINSSPYI599.961 - 24.689 ppm10/30/2024 7:27 AM EDTHealthTrackRx at LabR[facility] For ChildrenGARDNERELLA VAGINALISNot Fcaezlnx37.961 - 24.689 ppm10/30/2024 7:27 AM EDTHealthTrackRx at LabRiley Hospital For ChildrenMEGASPHAERA (TYPES 1, 2)019.961 - 24.689 ppm 10/30/2024 7:27 AM EDTHealthTrackRx at LabRiley Hospital For ChildrenMEGASPHAERA (TYPES 1, 2)Not Btdjhwfh37.961 - 24.689 ppm10/30/2024 7:27 AM EDTHealthTrackRx at LabPort NEISSERIA EVMKBLGIISF568.000 - 32.587 ppm10/30/2024 7:27 AM EDTHealthTrackRx at [facility]NEISSERIA GONORRHOEAENot Tdmidfxu84.000 - 32.587 ppm10/30/2024 7:27 AM EDTHealthTrackRx at LabPortTRICHOMONAS GZPBAWNDW630.000 - 31.995 ppm 10/30/2024 7:27 AM EDTHealthTrackRx at LabPortTRICHOMONAS VAGINALISNot Njhaixzg18.000 - 31.995 ppm10/30/2024 7:27 AM EDTHealthTrackRx at LabPort MYCOPLASMA IUATBPUFZJ377.961 - 24.689 ppm10/30/2024 7:27 AM EDTHealthTrackRx at LabRiley Hospital For ChildrenMYCOPLASMA GENITALIUMNot Ihsvypbf53.961 - 24.689 ppm10/30/2024 7:27 AM EDTHealthTrackRx at LabPortSpecimen (Source)Anatomical Location / LateralityCollection Method / VolumeCollection TimeReceived TimeTissue 10/28/2024 4:48 PM EDT10/30/2024 2:18 AM EDT Narrative Authorizing ProviderResult TypeResult StatusJessica Qiuly NPLAB BLOOD ORDERABLESFinal ResultPerforming OrganizationAddressCity/State/ZIP CodePhone Number [facility] [address] [address] * IGP,APTIMA HPV,AGE GDLN (10/28/2024 2:25 PM EDT)ComponentValueRef RangeTest MethodAnalysis TimePerformed AtPathologist SignatureAGE GDLN ACOG TESTINGNote. TBHComment: ?? TESTS ? RESULT ??FLAG ??UNITS ?REF RANGE ??LAB ?? Clinician Provided Cytology Information ?? Source.............Endocervix ?? No. of containers..01 ThinPrep Vial Age Algo ACOG Yaa... ??21-29 ? 01 ?FLAG LEGEND: ?L-Low Normal,H-High Normal,LL-Alert Low,HH-Alert High <-Panic Low,>-Panic High,A-Abnormal,AA-Critical Abnormal Performed at: 01 =G ?[facility] ?? [address] [place], [place] ??[phone] ?? Ludy Hector MD, IGP, RFX APTIMA HPV ASCUNote.TBHComment: ?? TESTS ? RESULT ??FLAG ??UNITS ?REF RANGE ??LAB DIAGNOSIS: ?02 ?? NEGATIVE FOR INTRAEPITHELIAL LESION OR MALIGNANCY. ?? THIS SPECIMEN WAS RESCREENED PART OF OUR GAS TURBINE MECHANIC PROGRAM. Specimen adequacy: ?02 ?? Satisfactory for evaluation. No endocervical component is identified. Performed by: ? 02 ?? Brionna Mello Halftone Operator ([facility]) QC reviewed by: ? 02 ?? Polina Simons Halftone Operator . ? 02 Note: ? Note ?02 ?? The Pap smear is a screening test designed to aid in the ?? detection of premalignant and malignant conditions of the ?? uterine cervix. ??It is not a diagnostic procedure and ?? should not be used as the sole means of detecting cervical ?? cancer. ??Both false-positive and false-negative reports do ?? occur. Test Methodology: ? Note ?02 ?? This liquid based ThinPrep(R) pap test was screened with ?? the use of an image guided system. . ? 02 ?? The HPV DNA reflex criteria were not met with this specimen ?? result therefore, no HPV testing was performed. ?FLAG LEGEND: ?L-Low Normal,H-High Normal,LL-Alert Low,HH-Alert High <-Panic Low,>-Panic High,A-Abnormal,AA-Critical Abnormal Performed at: 02 WB ?[facility] ?? [address] [place] ??[phone] ?? Ludy Hector MD, Performed at: ??=G - [facility] [address] [place] ??[id number] Financial Associate: Ludy Hector MD, Phone: ??[phone] Performed at: ??WB - [facility] [place] [address] [facility] [place], [place] ??[id number] Financial Associate: Ludy Hector MD, Phone: ??[phone] Specimen (Source)Anatomical Location / LateralityCollection Method / Volume Collection TimeReceived Time10/28/2024 2:25 PM EDT10/28/2024 9:48 PM EDT Narrative CLINISYNC - 11/03/2024 11:08 AM EDT BRUSH-SPATULA ENDOCERVIX Authorizing ProviderResult TypeResult StatusAmy Dm PALAB BLOOD ORDERABLES Final ResultPerforming OrganizationAddressCity/State/ZIP CodePhone Number CLINISYNC TBH * Pap Smear (10/28/2024 12:00 AM EDT)Specimen (Source)Anatomical Location / LateralityCollection Method / VolumeCollection TimeReceived TimeSwabCervical swab / Unknown Narrative Authorizing ProviderResult TypeResult StatusFazio Nurse Noms Bcp ObLAB CYTOLOGY ORDERABLESFinal ResultPerforming OrganizationAddressCity/State/ZIP CodePhone Number EXTERNAL LAB * US OB CERVICAL LENGTH (10/06/2024 2:26 PM EDT)Anatomical RegionLaterality ModalityOtherSpecimen (Source)Anatomical Location / LateralityCollection Method / VolumeCollection TimeReceived Time10/06/2024 2:26 PM EDT Narrative 10/06/2024 2:28 PM EDT [facility] ?[address] ? [place] [address] ? Ultrasound Report ? Signed ? Patient: ALETA CASTRO N ?MR#: [id number] ?? : 2000 ?Acct:[id number] ?? Age/Sex: 24 / F ?ADM Date: 10/06/24 ?? Loc: US ? Attending Dr: Sintia Thomas D.O. ? Ordering Physician: Sintia Thomas D.O. ?? Date of Service: 10/06/24 ?? Procedure(s): US OB cervical length ?? Accession Number(s): [id number] ? cc: Sintia Thomas D.O.; DANNY PAYNE ? [facility] ? [address] ? [place] [address] ? Patient Name: ?? ALETA CASTRO ? MRN: [facility]:[id number] ? date: 2000 ?Sex: F ?? Assigned Patient Location: ?? Current Patient Location: US ?? Accession/Order Number: [id number] ?? Exam Date: 10/06/2024 ??14:25 ?Report Date: 10/06/2024 ??14:26 ? At the request of: ?? SINTIA ??WILLIAM ??DO ? Procedure: ??US OB cervical length ? Cervical length ultrasound. ? Reason for exam: Abdominal cramping. ? TECHNIQUE: Transvaginal imaging of the gravid uterus was obtained. ? FINDINGS: Cervical length measures 4.53 cm without evidence of funneling. ? heart rate 158 bpm. ? US/US OB cervical length ?? Impression: Normal cervical length without evidence of funneling. ? Impression dictated by: Jermaine Nguyễn Jr., DJarad ??10/06/2024 2:26 PM ? Dictation Location: [place] [address] ? Electronically authenticated by: [id number] ??Y ?? Date: 10/06/2024 ??14:26 ? Dictated By: ?Jermaine Nguyễn M.D. ? Signed By: ?10/06/24 1428 ? DD/ 1426 ? TD/TT: ? Administrative Office Clerk: Procedure Note Radiology, Radiologist, - 10/06/2024 [place] [address] Ultrasound Report Signed Patient: ALETA CASTRO NMR#: [id number] : 2000Acct:[id number] Age/Sex: 24 / FADM Date: 10/06/24 Loc: US Attending Dr: Sintia Thomas D.O. Ordering Physician: Sintia Thomas D.O. Date of Service: 10/06/24 Procedure(s): US OB cervical length Accession Number(s): [id number] cc: Sintia Thomas D.O.; DANNY PAYNE The [place] [id number] Patient Name: ALETA CASTRO MRN: [facility]:[id number] date: 2000 Sex: F Assigned Patient Location: US Current Patient Location: US Accession/Order Number: [id number] Exam Date: 10/06/2024 14:25 Report Date: 10/06/2024 [...] Jr., D.O. 10/06/2024 2:26 PM Dictation Location: [facility] PowerGARFIELD COUNTY PUBLIC HOSPITALGoodGuide Electronically authenticated by: [id number] Y Date: 4:26 Dictated By: Jermaine Nguyễn M.D. Signed By:10/06/24 1428 DD/ 25 TD/TT: Administrative Office Clerk: Authorizing ProviderResult TypeResult StatusCorekehinde Thomas DOCLINISYNC IMAGINGFinal Result from Last 3 Months Insurance Care Teams Team MemberRelationshipSpecialtyStart DateEnd Date Danny Payne MD [address] [place] [address] PCP - GeneralFamily Medicine07/24/22 Danny Payne MD [address] [address] [facility]
--- OUTSIDE RECORDS SUMMARY | 2025-01-06 14:58 | XMS_ITS | Encounter Summary ---
Author Organization [facility] Address [address] [place] [address] Care Team Providers Care Maintenance Supervisor 2Nd Shift Name Role Phone Danny Schuler MD Primary Care Provider [phone] Danny Schuler MD Unavailable [phone] Encounter Details DateTypeDepartmentCare Team (Latest Contact Info)Prlpfcrrwfw01/08/2025amboo flowsheet [facility] [place] [facility] [address] [place] [address] Jessica Steen, CONDITIONER TENDER [address] [place] [address] Social History Tobacco UseTypesPacks/DayYears UsedDateSmoking Tobacco: Some [...] otherwise physically hurt by your partner or ex-partner?No09/26/2023Within the last year, have you been raped or forced to have any kind of sexual activity by your partner or ex-partner?No12/11/2022Social Connection and Isolation Panel AnswerDate RecordedIn a typical week, how many times do you talk on the phone with family, friends, or neighbors?Three times a week12/11/2022How often do you get together with friends or relatives?Once a week12/11/2022How often do you attend holiness or yazidism services?More than 4 times per year12/11/2022o you belong to any clubs or organizations such as holiness groups, unions, fraternal or athletic groups, or school groups?No12/11/2022How often [...] food, housing, medical care, and heating?Somewhat hard 12/11/2022[facility] [place] of Occupational Health - Occupational Stress QuestionnaireAnswerDate RecordedDo you feel stress - tense, restless, nervous, or anxious, or unable to sleep at night because yourmind is troubled all the time - these days?Only a suiapm1512/11/2022Exercise Vital SignAnswerDate Recorded On average, how many [...] degree you have received?11th grade12/10/2022Estimated Date of JumzbrlwQekaoyejUyd27/06/2025Based on last menstrual period of 05/16/2024Sex and Gender InformationValueDate RecordedSex Assigned at YqwevSocxyi64/25/2023 10:10 AM EDTLegal TfaLvqyly45/15/2023 6:51 PM EDTGender ZsevjfweKmuqmf60/25/2023 10:10 AM EDTSexual OrientationNot on filedocumented as of this encounter Plan of Treatment DateTypeDepartmentCare Team (Latest Contact Info)Clxaxmnvgff67/05/2025 1:50 PM ESTRoutine [facility] [address] [place] [address] Pretty Chaidez PA [address] [place] [address] documented as of this encounter Visit Diagnoses Not on filedocumented in this encounter Care Teams Team MemberRelationshipSpecialtyStart DateEnd Date Danny Schuler MD [address] [place] [address] PCP - GeneralFamily Medicine07/24/22 Danny Schuler MD [address] [address] PCP - [place] [facility]06/16/20documented as of this encounter
--- OUTSIDE RECORDS SUMMARY | 2025-01-06 14:58 | XMS_ITS | Encounter Summary ---
Author Organization [facility] Address [address] [place] [address] Care Team Providers Care Bead Wrapper Name Role Phone Danny Payne MD Primary Care Provider [phone] Danny Payne MD Unavailable [phone] Encounter Details DateTypeDepartmentCare Team (Latest Contact Info)Efsxyfghaed80/11/2025Clinisync Result Encounter [facility] External Department Unsolicited Provider, Generic External Data Social History Tobacco UseTypesPacks/DayYears UsedDateSmoking Tobacco: Some [...] with family, friends, or neighbors?Three times a week09/26/2023How often do you get together with friends or relatives?Once a week12/11/2022How often do you attend protestant or religion services?More than 4 times per year12/11/2022o you belong to any clubs or organizations such as protestant groups, unions, fraternal or athletic groups, or [...] food, housing, medical care, and heating?Somewhat hard 12/11/2022[facility] [place] of Occupational Health - Occupational Stress QuestionnaireAnswerDate RecordedDo you feel stress - tense, restless, nervous, or anxious, or unable to sleep at night because yourmind is troubled all the time - these days?Only a cbcjbu1912/11/2022Exercise Vital SignAnswerDate Recorded On average, how many [...] degree you have received?11th grade12/10/2022Estimated Date of AqmualroVpeaturzJid36/06/2025Based on last menstrual period of 05/16/2024Sex and Gender InformationValueDate RecordedSex Assigned at WrisiAktkxp01/25/2023 10:10 AM EDTLegal SbzNenisd91/15/2023 6:51 PM EDTGender OchxgszfKsdfim93/25/2023 10:10 AM EDTSexual OrientationNot on filedocumented as of this encounter Plan of Treatment DateTypeDepartmentCare Team (Latest Contact Info)Lntntfajppl54/05/2025 1:50 PM ESTRoutine [facility] [address] [place] [phone] Pretty Chaidez PA [address] [place] [address] documented as of this encounter Procedures Procedure NamePriorityDate/TimeAssociated DiagnosisCommentsUS OB BPP W NON-MBSOPL2212/26/2024 11:19 AM EDT documented in this encounter Results * US OB BPP W NON-STRESS (12/26/2024 11:19 AM EDT)Anatomical Region LateralityModalityOtherSpecimen (Source)Anatomical Location / Laterality Collection Method / VolumeCollection TimeReceived Time12/26/2024 11:19 AM EDT Narrative 12/26/2024 11:22 AM EDT [facility] ?[address] ? [place] [address] ? Ultrasound Report ? Signed ? Patient: RAKEL,SUMMER N ?MR#: [id number] ?? : 2000 ?Acct:[id number] ?? Age/Sex: 24 / F ?ADM Date: 12/26/ ?? Loc: US ? Attending Dr: Sintia Thomas D.O. ? Ordering Physician: Sintia Thomas D.O. ?? Date of Service: 12/26/24 ?? Procedure(s): US OB BPP w non-stress ?? Accession Number(s): [id number] ? cc: Sintia Thomas D.O.; DANNY PAYNE ? [facility] ? [address] ? [place] [address] ? Patient Name: ?? ALETA CASTRO ? MRN: [facility]:[id number] ? date: 2000 ?Sex: F ?? Assigned Patient Location: ?? Current Patient Location: ? Accession/Order Number: [id number] ?? Exam Date: 12/26/2024 ??09:00 ?Report Date: 12/26/2024 ??11:19 ? At the request of: ?? SINTIA ??CYNTHIA ??DO ? Procedure: ??US OB BPP w non-stress ? Ultrasound biophysical profile ? INDICATION: Gabby's disease. ? COMPARISON: 10/06/2024 ? FINDINGS: LYNN 12.4 cm. ??8/8 score biophysical profile. ??Fetus is cephalic ?? position with heart rate 152 beats per minutes. ? US/US OB BPP w non-stress ?? Impression: 8 out of 8 score biophysical profile. ? Impression dictated by: Deshaun Aguilar M.D. ??12/26/2024 11:19 AM ? Dictation Location: RADIO-PC-29 ? Electronically authenticated by: [id number] ??Y ?? Date: 12/26/2024 ??11:19 ? Dictated By: ?Deshaun Aguilar M.D. ? Signed By: ?12/26/24 1122 ? DD/ 1119 ? TD/TT: ? Insurance Representative: Procedure Note Radiology, Radiologist, MD - 12/26/2024 [place] [address] Ultrasound Report Signed Patient: ALETA CASTRO NMR#: [id number] : 2000Acct:[id number] Age/Sex: 24 / FADM Date: 12/26/24 Loc: US Attending Dr: Sintia Thomas D.O. Ordering Physician: Sintia Thomas D.O. Date of Service: 12/26/24 Procedure(s): US OB BPP w non-stress Accession Number(s): [id number] cc: Sintia Thomas D.O.; DANNY PAYNE [place] [address] Patient Name: ALETA CASTRO MRN: [id number] date: 2000 Sex: F Assigned Patient Location: US Current Patient Location: Accession/Order Number: [id number] Exam Date: 12/26/2024 09:00 Report Date: 12/26/2024 [...] Aguilar M.D. 12/26/2024 11:19 AM Dictation Location: [place] [address] Electronically authenticated by: [id number] Y Date: 1:19 Dictated By: Deshaun Aguilar M.D. Signed By:12/26/24 1122 DD/ 1119 TD/TT: Insurance Representative: Authorizing ProviderResult TypeResult StatusGeneric External Data Provider CLINISYNC IMAGINGFinal Result documented in this encounter Visit Diagnoses Not on filedocumented in this encounter Care Teams Team MemberRelationshipSpecialtyStart DateEnd Date Danny Payne MD [address] [address] PCP - GeneralFamily Medicine07/24/22 Danny Payne MD 112 [facility] [address] [place] [address] PCP - [facility]06/16/20documented as of this encounter
--- OUTSIDE RECORDS SUMMARY | 2025-01-06 14:58 | XMS_ITS | Encounter Summary ---
Author Organization [facility] Address [address] [place] [address] Care Team Providers Care Glass Selector Name Role Phone Danny Payne MD Primary Care Provider [phone] Danny Payne MD Unavailable [phone] Encounter Details DateTypeDepartmentCare Team (Latest Contact Info)Roxunxajqku20/11/2025Clinisync Result Encounter [facility] External Department Unsolicited Provider, [...] relatives?Once a week12/11/2022How often do you attend temple or confucianism services?More than 4 times per year12/11/2022o you belong to any clubs or organizations such as temple groups, unions, fraternal [...] food, housing, medical care, and heating?Somewhat hard 12/11/2022[facility] [place] of Occupational Health - Occupational Stress QuestionnaireAnswerDate RecordedDo you feel stress - tense, restless, nervous, or anxious, or unable to sleep at night because yourmind is troubled all the time - these days?Only a fgfmwa7512/11/2022Exercise Vital SignAnswerDate Recorded On average, how many [...] degree you have received?11th grade12/10/2022Estimated Date of WizsjyeeTnuooopeNus55/06/2025Based on last menstrual period of 05/16/2024Sex and Gender InformationValueDate RecordedSex Assigned at WdcwlVnyqqz26/25/2023 10:10 AM EDTLegal XdsUcgkar57/15/2023 6:51 PM EDTGender KftslicfZrlwfj01/25/2023 10:10 AM EDTSexual OrientationNot on filedocumented as of this encounter Plan of Treatment DateTypeDepartmentCare Team (Latest Contact Info)Jksdibzmbtw71/05/2025 1:50 PM ESTRoutine [facility] [address] [place] [phone] Pretty Chaidez PA [address] [place] [address] documented as of this encounter Procedures Procedure NamePriorityDate/TimeAssociated DiagnosisCommentsUS OB GROWTH 12/26/2024 11:31 AM EDT documented in this encounter Results * US OB GROWTH (12/26/2024 11:31 AM EDT)Anatomical RegionLateralityModalityOther Specimen (Source)Anatomical Location / LateralityCollection Method / Volume Collection TimeReceived Time12/26/2024 11:31 AM EDT Narrative 12/26/2024 11:33 AM EDT [facility] ?[address] ? [place] [address] ? Ultrasound Report ? Signed ? Patient: RAKEL,SUMMER N ?MR#: [id number] ?? : 2000 ?Acct:[id number] ?? Age/Sex: 24 / F ?ADM Date: 12/26/25 ?? Loc: US ? Attending Dr: Sintia Thomas D.O. ? Ordering Physician: Sintia Thomas D.O. ?? Date of Service: 12/26/24 ?? Procedure(s): US OB growth ?? Accession Number(s): [id number] ? cc: Sintia Thomas D.O.; DANNY PAYNE ? [facility] ? [address] ? [place] [address] ? Patient Name: ?? RACHEL CASTRO ? MRN: [facility]:[id number] ? date: 2000 ?Sex: F ?? Assigned Patient Location: US ?? Current Patient Location: ? Accession/Order Number: [id number] ?? Exam Date: 12/26/2024 ??09:00 ?Report Date: 12/26/2024 ??11:31 ? At the request of: ?? SINTIA ??CYNTHIA ??DO ? Procedure: ??US OB growth ? Obstetric ultrasound for growth ? INDICATION: Gabby's disease ? FINDINGS: Single live anterior cephalic presentation longitudinal ?? lie. ??Amniotic fluid index 12.4 cm between the gestational age fifth and 95th ?? percentile. ??Largest pocket of fluid 5.1 cm. ?? heart rate 1 52 bpm. ? motion documented by the fruit or nut farm worker.. ? Estimated weight 2093 g 71.4%. ? [...] M.D. ??12/26/2024 11:31 AM ? Dictation Location: RADIO-PC-29 ? Electronically authenticated by: [id number] ??Y ?? Date: 12/26/2024 ??11:31 ? Dictated By: ?Deshaun Aguilar M.D. ? Signed By: ?10// 1133 ? DD/ ? TD/TT: ? Lead Assistant Manager: Procedure Note Radiology, Radiologist, - 12/26/2024 [place] [address] Ultrasound Report Signed Patient: RACHEL CASTRO NMR#: [id number] : 2000Acct:[id number] Age/Sex: 24 / FADM Date: 12/26/24 Loc: US Attending Dr: Sintia Thomas D.O. Ordering Physician: Sintia Thomas D.O. Date of Service: 12/26/24 Procedure(s): US OB growth Accession Number(s): [id number] cc: Sintia Thomas D.O.; DANNY PAYNE The [place] [address] Patient Name: RACHEL CASTRO MRN: [facility]:[id number] date: 2000 Sex: F Assigned Patient Location: US Current Patient Location: Accession/Order Number: [id number] Exam Date: 12/26/2024 09:00 Report Date: 12/26/2024 11:31 At the request of: SINTIA THOMAS DO Procedure: US OB growth Obstetric ultrasound for growth INDICATION: Gabby's disease FINDINGS: Single live anterior cephalic presentationlongitudinal lie. Amniotic fluid index 12.4 cm between the gestational age fifth gju87cz percentile. Largest pocket of fluid 5.1 cm. heart rate 1 52 bpm. motion documented by the fruit or nut farm worker.. Estimated weight 2093 g 71.4%. Gestation age 32 weeks and 0 days. Biparietal diameter 7.93 m. Head circumference 30.7 cm. Otherwise the 10.6 cm. Abdominal circumference 28.9 cm. Femur length 6.4 cm. US/US OB growth IMPRESSION: Single live intrauterine of approximately 30 weeks Impression dictated by: Deshaun Aguilar M.D. 12/26/2024 11:31 AM Dictation Location: [facility] Electronically authenticated by: [id number] Y Date: :31 Dictated By: Deshaun Aguilar M.D. Signed By:12/26/24 1133 DD/ 1131 TD/TT: Lead Assistant Manager: Authorizing ProviderResult TypeResult StatusGeneric External Data Provider CLINISYNC IMAGINGFinal Result documented in this encounter Visit Diagnoses Not on filedocumented in this encounter Care Teams Team MemberRelationshipSpecialtyStart DateEnd Date Danny Payne MD [address] [address] PCP - GeneralFamily Medicine07/24/22 Danny Payne MD [address] [address] PCP - Ziggy Richard06/16/20documented as of this encounter
--- OUTSIDE RECORDS SUMMARY | 2025-01-06 14:58 | XMS_ITS | Clinical Summary ---
Author Organization [facility] Address [address] [place] [address] Care Team Providers Care Ice Cream Maker Name Role Phone Unavailable Primary Care Provider Unavailabl e Allergies Active AllergyReactionsCriticalityNoted EhbrKcnrujuoKalhlvwhqeumRtiyc68/05/2021 Other Reaction(s): hives XxrejUmmlRlt80/05/2021 Other Reaction(s): Unknown GlsexavlmDrlhula43/25/2023 Other Reaction(s): body numbness Medications MedicationSigDispense QuantityRefillsLast FilledStart DateEnd DateStatus ondansetron ODT (Zofran-ODT) 4 mg disintegrating tablet Take 4 mg by mouth if needed.Active no.37/iron/folic acid (PRENATA ORAL) Take by mouth in the morning.Active Active Problems ProblemNoted DateDiagnosed Date28 weeks gestation of jpjvkgzye20/14/2025bnormal bleeding in menstrual cycle02/19/2024Status post arthroscopic reconstruction of anterior cruciate ligament of left knee using quadricepstendon autograft 05/10/2023cute pain of left knee4Chronic mpoxavg0512/10/2022igarette dwljfa8112/10/2022yst of ovary12/10/2022Hashimoto's joobhpm3512/10/2022Hypotension determined by /25/2023Juvenile osteochondrosis of tibial tuberosity 12/10/2022Non morbid obesity due to excess icpgllea79/25/2023ostural orthostatic tachycardia syndrome (POTS)12/14/20181528Tetiqptlrtr27/15/2019Syncope and /15/2019CommentsYes Encounters DateTypeDepartmentCare KqwzTfluuikdhjf25/12/2025 3:20 PM EDTOffice Visit [facility] [address] [place] [address] Bibi Singh MD Syncope and collapse (Primary Dx); Neurocardiogenic syncope; 28 weeks gestation of ; Gabby's diseasefrom Last 3 Months Family History RelationNameStatusCommentsFatherAliveMotherAlive Social History Tobacco UseTypesPacks/DayYears UsedDateSmoking Tobacco: FormerCigarettes Smokeless Tobacco: Former Tobacco Cessation:Counseling Given: Not Answered Comments:Quite 6 month ago Alcohol UseStandard Drinks/WeekCommentsNot Currently0 (1 standard drink = 0.6 oz pure alcohol)MT Safety & EnvironmentAnswerDate RecordedFear of Current or Ex-PartnerNot on file05/09/2023Emotionally AbusedNot on file05/09/2023hysically AbusedNot on file05/09/2023Sexually AbusedNot on file05/09/2023hysically or Sexually AbusedNot on file05/09/2023CommentsYesSex and Gender InformationValueDate RecordedSex Assigned at MtjsgIoysrr57/08/2025 2:10 PM EDT Legal WilRubaks29/29/2022 11:55 PM EDTGender MdigvrwhBumwho30/08/2025 2:10 PM EDTSexual OrientationHeterosexual or Jgqgwfrw19/08/2025 2:10 PM EDT Last Filed Vital Signs Vital SignReadingTime TakenCommentsBlood Rzxnqlcc023/8009 4:02 PM EDT Vgszd148711/27/2024 4:02 PM EDTTemperature--Respiratory Rate--Oxygen Joqrkfwbym27% 11/27/2024 4:02 PM EDTInhaled Oxygen Concentration--Cjhrku98 kg (172 lb) 11/27/2024 4:02 PM FRJYgedcq246.1 cm (5' 5 )11/27/2024 4:02 PM EDTBody Mass Index28.62011/27/2024 4:02 PM EDT Plan of Treatment Health MaintenanceDue DateLast DoneCommentsIPV Vaccines (4 of 4 - 4-dose series) , 2000, 2000Depression Cbwkwjbzk70/25/2012 Varicella Vaccines (2 of 2 - 2-dose childhood series)HPV Vaccines (1 - 3-dose series)06/09/2014dult Cimgaon82COVID-19 Vaccine (1 - season)2024Influenza Vaccine (#1)2024Pap Smear Zoster Vaccines (1 of 2)Pneumococcal Vaccine: Pediatrics (0 to 5 Years) and At-Risk Patients (6 to 64 Years)Aged Out 03/26/2000No longer eligible based on patient's age to complete this topicHIB XqoccmxuJhtcpbddk42/27/2001, 09/11/2000, 03/26/2000, Additional history exists Meningococcal VayxyxxGjbfpfxna82/28/2017Meningococcal B VaccineAged OutNo longer eligible based on patient's age to complete this topicRotavirus VaccinesAged Out No longer eligible based on patient's age to complete this topic Insurance
--- OUTSIDE RECORDS SUMMARY | 2025-01-06 14:58 | XMS_ITS | Encounter Summary ---
Author Organization [facility] Address [address] [place] [address] Care Team Providers Care Molasses Feed Mixer Name Role Phone Danny Schuler MD Primary Care Provider [phone] Danny Schuler MD Unavailable [phone] Reason for Visit * ReasonOnset DateCommentsMed Fnifzu2812/23/2024 Encounter Details DateTypeDepartmentCare Team (Latest Contact Info)Nmdmrtlkzoc02/08/2025Refill [facility]YKristina [address] [address] Azalea Schmitz MA [address] [facility] [place] [address] Nausea and vomiting in ([facility] Social History Tobacco UseTypesPacks/DayYears UsedDateSmoking Tobacco: [...] week12/11/2022How often do you attend jewish or restoration services?More than 4 times per year12/11/2022o you belong to any clubs or organizations such as jewish groups, unions, fraternal or athletic groups, or [...] medical care, and heating?Somewhat hard 12/11/2022[facility] [place] of Occupational Health - Occupational Stress QuestionnaireAnswerDate RecordedDo you feel stress - tense, restless, nervous, or anxious, or unable to sleep at night because yourmind is troubled all the time - these days?Only a fwetib1112/11/2022Exercise Vital SignAnswerDate Recorded On average, how many [...] degree you have received?11th grade12/10/2022Estimated Date of XeorgttySzfshoqxTok27/06/2025Based on last menstrual period of 05/16/2024Sex and Gender InformationValueDate RecordedSex Assigned at JezwoYyhayp10/25/2023 10:10 AM EDTLegal WwmDbdljx02/15/2023 6:51 PM EDTGender IlcxuvueEjvozs46/25/2023 10:10 AM EDTSexual OrientationNot on filedocumented as of this encounter Plan of Treatment DateTypeDepartmentCare Team (Latest Contact Info)Eiqdiilvirb46/05/2025 1:50 PM ESTRoutine [facility] [address] [address] Pretty Chaidez PA [address] [facility] [address] [place] [address] documented as of this encounter Visit Diagnoses Diagnosis Nausea and vomiting in ([facility]) Unspecified vomiting of , unspecified as to episode of care documented in this encounter Care Teams Team MemberRelationshipSpecialtyStart DateEnd Date Danny Schuler MD [address] [place] [address] PCP - GeneralFamily Medicine07/24/22 Danny Schuler MD [address] [place] [address] PCP - Ziggy [facility]06/16/20documented as of this encounter
--- OUTSIDE RECORDS SUMMARY | 2025-01-06 14:58 | XMS_ITS | Encounter Summary ---
Author Organization [facility] Address [address] [place] [address] Care Team Providers Care Retort Load Expediter Name Role Phone Danny Schuler MD Primary Care Provider [phone] Danny Schuler MD Unavailable [phone] Encounter Details DateTypeDepartmentCare Team (Latest Contact Info)Ihfcinfilpf35/11/2025Clinisync Result Encounter [facility] External Department Unsolicited Doc Thomas, DO [address] Brandyn [place] [id number] Social History Tobacco UseTypesPacks/DayYears UsedDateSmoking Tobacco: Some DaysCigarettes Smokeless Tobacco: NeverAlcohol UseStandard Drinks/WeekCommentsNot Currently0 (1 standard drink = 0.6 oz pure alcohol)2-4 drinks per weekHumiliation, Afraid, Rape, and Kick questionnaireAnswerDate RecordedWithin the last year, have you been afraid of your partner or ex-partner?No12/11/2022Within the last year, have you been humiliated or emotionally abused in other ways by your partner or ex-partner?12/11/2022Within the last year, have you been kicked, [...] relatives?Once a week12/11/2022How often do you attend hinduism or yazidi services?More than 4 times per year12/11/2022o you belong to any clubs or organizations such as hinduism groups, unions, fraZeePearl or athletic groups, or school groups?No12/11/2022How often [...] food, housing, medical care, and heating?Somewhat hard 12/11/2022[facility] [place] of Occupational Health - Occupational Stress QuestionnaireAnswerDate RecordedDo you feel stress - tense, restless, nervous, or anxious, or unable to sleep at night because yourmind is troubled all the time - these days?Only a rycfdi4312/11/2022Exercise Vital SignAnswerDate Recorded On average, how many [...] degree you have received?11th grade12/10/2022Estimated Date of HeoyagqcOyqhkjtbBhc86/06/2025Based on last menstrual period of 05/16/2024Sex and Gender InformationValueDate RecordedSex Assigned at NiywxCoebvo36/25/2023 10:10 AM EDTLegal ThjKdakng74/15/2023 6:51 PM EDTGender FjtjuovfErvbax01/25/2023 10:10 AM EDTSexual OrientationNot on filedocumented as of this encounter Plan of Treatment DateTypeDepartmentCare Team (Latest Contact Info)Nqulhhlthvw18/05/2025 1:50 PM ESTRoutine [facility] [address] [address] Pretty Chaidez PA [address] [place] [address] documented as of this encounter Procedures Procedure NamePriorityDate/TimeAssociated DiagnosisCommentsALL THYROID STIM DURBNXOUlznjzh15/11/2025 8:13 AM EDT documented in this encounter Results * (ABNORMAL) ALL THYROID STIM HORMONE (12/26/2024 8:13 AM EDT)ComponentValueRef RangeTest MethodAnalysis TimePerformed AtPathologist SignatureTHYROID STIMULATING HORMONE0.131(L)0.358 - 3.740 uIU/mLTBHSpecimen (Source)Anatomical Location / LateralityCollection Method / VolumeCollection TimeReceived Time 12/26/2024 8:13 AM EDT1 8:13 AM EDT Narrative [facility]IN[facility]YNC - 12/26/2024 9:37 AM EDT Authorizing ProviderResult TypeResult StatusGeneric External Data Provider CLINISYNCFinal ResultPerforming OrganizationAddressCity/State/ZIP CodePhone Number CLINIS[facility]NC TB documented in this encounter Visit Diagnoses Not on filedocumented in this encounter Care Teams Team MemberRelationshipSpecialtyStart DateEnd Date Danny Schuler MD [address] [place] [address] PCP - GeneralFamily Medicine07/24/22 Danny Schuler MD [address] [place] [address] PCP - Ziggy Richard06/16/20documented as of this encounter
--- OUTSIDE RECORDS SUMMARY | 2025-01-06 14:59 | XMS_ITS | Encounter Summary ---
Author Organization [facility] Address [address] [place] [address] Care Team Providers Care Living Skills Advisor Name Role Phone Danny Payne MD Primary Care Provider [phone] Danny Payne MD Unavailable [phone] Encounter Details DateTypeDepartmentCare Team (Latest Contact Info)Ofsojmdavga34/18/2025Clinisync Result Encounter [facility] External Department Unsolicited Provider, [...] relatives?Once a week12/11/2022How often do you attend moravian or mandaen services?More than 4 times per year12/11/2022o you belong to any clubs or organizations such as moravian groups, unions, fraternal or athletic groups, or [...] food, housing, medical care, and heating?Somewhat hard 12/11/2022[facility] [place] of Occupational Health - Occupational Stress QuestionnaireAnswerDate RecordedDo you feel stress - tense, restless, nervous, or anxious, or unable to sleep at night because yourmind is troubled all the time - these days?Only a yudjmq8012/11/2022Exercise Vital SignAnswerDate Recorded On average, how many [...] degree you have received?11th grade12/10/2022Estimated Date of CxxjdypxSyqtbrexVzu67/06/2025Based on last menstrual period of 05/16/2024Sex and Gender InformationValueDate RecordedSex Assigned at EepmkOavztc49/25/2023 10:10 AM EDTLegal ZseMxqxje84/15/2023 6:51 PM EDTGender DbyfvypmWhkxct17/25/2023 10:10 AM EDTSexual OrientationNot on filedocumented as of this encounter Plan of Treatment DateTypeDepartmentCare Team (Latest Contact Info)Bgyixnxrwkv46/05/2025 1:50 PM ESTRoutine [facility] [address] [place] [phone] Pretty Chaidez PA [address] [place] [address] documented as of this encounter Procedures Procedure NamePriorityDate/TimeAssociated DiagnosisCommentsUS OB BPP W NON-OWKFVL6401/02/2025 3:02 PM EDT documented in this encounter Results * US OB BPP W NON-STRESS (01/02/2025 3:02 PM EDT)Anatomical Region LateralityModalityOtherSpecimen (Source)Anatomical Location / Laterality Collection Method / VolumeCollection TimeReceived Time01/02/2025 3:02 PM EDT Narrative 01/02/2025 3:05 PM EDT [facility] ?[address] ? [place] [address] ? Ultrasound Report ? Signed ? Patient: RAKEL,SUMMER N ?MR#: [id number] ?? : 2000 ?Acct:[id number] ?? Age/Sex: 24 / F ?ADM Date: /18/25 ?? Loc: US ? Attending Dr: Sintia Thomas D.O. ? Ordering Physician: Sintia Thomas D.O. ?? Date of Service: 01/02/25 ?? Procedure(s): US OB BPP w non-stress ?? Accession Number(s): [id number] ? cc: Sintia Thomas D.O.; DANNY PAYNE ? [facility] ? [address] ? [place] [address] ? Patient Name: ?? RACHEL CASTRO ? MRN: [facility]:[id number] ? date: 2000 ?Sex: F ?? Assigned Patient Location: [facility] ?? Current Patient Location: ? Accession/Order Number: [id number] ?? Exam Date: 01/02/2025 ??09:00 ?Report Date: 01/02/2025 ??15:02 ? At the request of: ?? SINTIA ??CYNTHIA ??DO ? Procedure: ??US OB BPP w non-stress ? US OB BPP w non-stress ??01/02/2025 9:31 AM ? SIGNS AND SYMPTOMS: ?? 02/20/2025 ?? 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 PROTOCOL: Transabdominal sonographic imaging [...] Dictation Location: RADIO-PC-17 ? Electronically authenticated by: [id number] ??Y ?? Date: 01/02/2025 ??15:02 ? Dictated By: ?Emmanuel Dalton M.D. ? Signed By: ?01/02/25 1505 ? DD/ 1502 ? TD/TT: ? Bunk Assembler: Procedure Note Radiology, Radiologist, - 01/02/2025 [place] [address] Ultrasound Report Signed Patient: RACHEL CASTRO NMR#: [id number] : 2000Acct:[id number] Age/Sex: 24 FADM Date: 01/02/25 Loc: US Attending Dr: Sintia Thomas D.O. Ordering Physician: Sintia Thomas D.O. 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 01/02/2025 3:02 PM Dictation Location: [place] [address] Electronically authenticated by: [id number] Y Date: 5:02 Dictated By: Emmanuel Dalton M.D. Signed By:01/02/25 1505 DD/ 1502 TD/TT: Bunk Assembler: Authorizing ProviderResult TypeResult StatusGeneric External Data Provider CLINISYNC IMAGINGFinal Result documented in this encounter Visit Diagnoses Not on filedocumented in this encounter Care Teams Team MemberRelationshipSpecialtyStart DateEnd Date Danny Payne MD [address] [address] PCP - GeneralFamnly Medicine07/24/22 Danny Payne MD [address] [address] PCP - Ziggy [facility]06/16/20documented as of this encounter
--- OUTSIDE RECORDS SUMMARY | 2025-01-06 14:59 | XMS_ITS | Encounter Summary ---
Author Organization [facility] Address [address] [place] [address] Care Team Providers Care Operations Agent Name Role Phone Danny Schuler MD Primary Care Provider Danny Schuler MD Unavailable [phone] Encounter Details DateTypeDepartmentCare Team (Latest Contact Info)Fuvpejgwgfq85/21/2025amboo flowsheet KYE Willis OBGYN [address] [place] [phone] Doc Thomas, [address] Brandyn Willis, [facility] Social History Tobacco UseTypesPacks/DayYears UsedDateSmoking Tobacco: Some [...] relatives?Once a week12/11/2022How often do you attend rastafari or jew services?More than 4 times per year12/11/2022o you belong to any clubs or organizations such as rastafari groups, unions, fraternal [...] food, housing, medical care, and heating?Somewhat hard 12/11/2022[facility] [place] of Occupational Health - Occupational Stress QuestionnaireAnswerDate RecordedDo you feel stress - tense, restless, nervous, or anxious, or unable to sleep at night because yourmind is troubled all the time - these days?Only a wlaznm6012/11/2022Exercise Vital SignAnswerDate Recorded On average, how many [...] degree you have received?11th grade12/10/2022Estimated Date of ZsojkiejVxyhzsowEwr08/06/2025Based on last menstrual period of 05/16/2024Sex and Gender InformationValueDate RecordedSex Assigned at TkznhIzbvok14/25/2023 10:10 AM EDTLegal VmoDscwql80/15/2023 6:51 PM EDTGender NlfzjbhjRnrgif00/25/2023 10:10 AM EDTSexual OrientationNot on filedocumented as of this encounter Plan of Treatment DateTypeDepartmentCare Team (Latest Contact Info)Rndrybcbfrb87/05/2025 1:50 PM ESTRoutine [facility] [address] [place] [phone] Pretty Chaidez PA [address] [place] [address] documented as of this encounter Visit Diagnoses Not on filedocumented in this encounter Care Teams Team MemberRelationshipSpecialtyStart DateEnd Date Danny Schuler MD [address] [place] [address] [address] PCP - GeneralFamily Medicine07/24/22 Danny Schuler MD [address] [place] [address] [address] PCP - [place] [employer]06/16/20documented as of this encounter
--- OUTSIDE RECORDS SUMMARY | 2025-01-06 15:00 | XMS_ITS | CCD ---
Author Organization [facility] CliniSyva Care Team Providers Care Reel Operator Name Role Phone BECERRIL, DAVID P [...] DR PATRICIO Admitting Unavailable WILLIAM ., DR PARTICIO Attending Unavailable REQUEST, DR NONE LISTED Primary Care Unavaila ble WILLIAM ., DR PATRICIO Consulting Unavailable Kristine, Destinee Unavailable ROSALIE PAYNE Primary Care Physician Unavail able Rosalie Payne MD Primary Care Provider [phone] Pocanaly, Myron Washburn Admitting Unavailable PocosMyron Referring Unavailable Pocos, Myron Washburn Attending Unavailable Pocos, Myron Washburn Referring Unavailable Pocos, Myron Washburn Attending Unavailable Myron Marroquin Admitting Unavailable MD Rosalie Payne Primary Care Provider [phone] DO Marcelle Espinosa Attending Provider Marcelle Espinosa Attending Unavailable Marcelle Espinosa Admitting Unavailable Rosalie Payne Primary Care Unavailable Rosalie Payne MD Primary Care Provider Rosalie Payne MD Primary Care Provider Rosalie Payne MD Unavailable LESA SINGH Attending Unavailable DOC THOMAS Attending Unavailable PRETTY CHAIDEZ Attending Unavailable DOC THOMAS Attending Unavailable PRETTY CHAIDEZ Attending Unavailable LUNA STEEN Attending Unavailable DOC THOMAS Attending Unavailable LUNA STEEN Attending Unavailable PEPE KIRBY Attending Unavailable MYRON MARROQUIN Referring Unavailable ROSALIE PAYNE Attending Unavailable MYRON MARROQUIN Attending Unavailable Allergies Allergy ClassificationReported Allergen(s)Allergy TypeDate of OnsetReaction(s) FacilityLatex (1 source)LatexSubstance Uidyprf60-56-4666ZlozVqzlk HealthMacrolides (antibiotic) (1 source)AzithromycinDrug Iduvfbe92-33-5636TdsirYguxk Health (20 sources)Azithromycin; Translations: [azithromycin]Drug Ziodxre54-55-2188 [facility] (11 sources)Latex; Translations: [Latex]Propensity to adverse reactions to drug 06-51-1668GcarZoprl Health (1 source)AzithromycinDrug Xfzyaak98-89-7453Ftc [facility] (1 source)natural latex rubberDrug allergy (disorder)[facility] (2 sources)Banana Extract; Translations: [Banana]Drug AllergyVomiting (disorder) [facility] (20 sources)Midodrine; Translations: [midodrine]Drug Qqoleed49-55-7485KfppnnwtUniversity Hospitals Health System (20 sources)LatexAllergy to vbwjpgcez50-71-8807JemwMXOO Healthcare (1 source)AzithromycinDrug Wfwjdqj88-89-3626BnzdoodyzN[facility] (1 source)LatexDrug allergy (disorder)38-13-4944YgrclkvrnNationwide Children'S [facility] Rep[facility] Medications Current Medications MedicationDrug Class(es)DatesSig (Normalized)Sig (Original)[id number] 200 actuat albuterol 0.09 mg/actuat metered dose inhaler (2 sources)beta2-Adrenergic AgonistStart: 20-67-0760sugp 2 puff(s) by inhalation four times daily as neededAlbuterol Sulfate HFA 108 (90 Base) MCG/ACT 2 puffs Inhalation 4 times a day prn Aug, ActiveStart: 69-09-6145vadq 2 puff(s) by inhalation four times daily as neededAlbuterol Sulfate HFA 108 (90 Base) MCG/ACT 2 puffs Inhalation 4 times a day prn Aug, Not-Taking/PRN fluconazole 150 mg oral tablet (2 sources)Azole AntifungalStart: 12-09-2024 End: 29-81-5187ulzvvaduxir (Diflucan) 150 MG tablet Indications: Yeast infection Take 1 tablet (150 mg) by mouth 1(one) time for 1 dose Repeat in 7 days if symptoms persist. 2 tablet 12/09/2024 12/09/2024 Activefluticasone propionate 0.05 mg/actuat metered dose nasal spray (4 sources)CorticosteroidStart: 96-34-5029kmduyqbkuqx (Flonase) 50 MCG/ACT nasal sprayStart: 04-43-6897hutx 1 spray(s) nasal route once dailyFluticasone Propionate 50 MCG/ACT 1 spray in each nostril Nasally Once a day for 14 15 Mar, 2023 ActiveStart: 73-25-6477mtwy 2 spray(s) nasal route once daily as needed Fluticasone Propionate 50 MCG/ACT 2 sprays Nasally Once a day for 14 day(s) Aug, Not-Taking/PRNStart: 95-61-3423iagw 2 spray(s) nasal route once daily Fluticasone Propionate 50 MCG/ACT 2 sprays Nasally Once a day for 14 day(s) Aug, Activeibuprofen 600 mg oral tablet (20 sources)Nonsteroidal Anti-inflammatory DrugStart: 76-02-5557jpet 1 tablet by mouth four times daily as needed for painibuprofen (ADVIL;MOTRIN) 600 MG tablet Take 1 tablet by mouth 4 times daily as needed for Pain 30 tablet 0 12/14/2020 Active End: 62-09-4522kgvqoxgbw 200 MG tablet Take by mouth. 07/16/2024 Discontinued magnesium oxide 400 mg oral tablet (5 sources)Start: 07-16-2024 End: 51-04-9075pqeg 1 tablet by mouth once dailymagnesium oxide (Mag-Ox) 400 MG tablet Indications: Cluster headache, not intractable, unspecified chronicity pattern Take 1 tablet (400 mg) by mouth Daily 30 tablet 6 07/16/2024 08/15/2024 Activeondansetron 4 mg oral tablet (20 sources)Serotonin-3 Receptor AntagonistStart: 90-82-5055dhii 1 tablet by mouth every six hours as needed for nausea and nausea, then take 1 tablet by mouthevery six hours as needed for nausea and nauseaondansetron (Zofran) 4 MG tablet Indications: Nausea and vomiting in ([facility]) Take 1 tablet (4 mg) by mouth every 6 (six) hours if needed for nausea or vomiting for up to 30 doses Take 1 tablet by mouth every 6 hours as needed for nausea. 30 tablet 12/23/2024 ActiveStart: 10-05-2024 End: 83-34-5302kenr 1 tablet by mouth every six hours for nauseaondansetron ODT (Zofran-ODT) 4 MG disintegrating tablet Indications: Nausea and vomiting during ([facility]) Take 1 tablet (4 mg) by mouth every 6 (six) hours if needed for nausea or vomiting 30 tablet 3 10/05/2024 11/04/2024 ActiveStart: 08-26-2024 End: 50-11-4077wqcs 1 tablet by mouth every six hours for nauseaondansetron ODT (Zofran-ODT) 4 MG disintegrating tablet Indications: Nausea and vomiting during ([facility]) Take 1 tablet (4 mg) by mouth every 6 (six) hours if needed for nausea or vomiting 30 tablet 3 08/26/2024 09/30/2024 ActiveStart: 07-06-2024 End: 18-46-8500jhlo 1 tablet by mouth every six hours for nauseaondansetron ODT (Zofran-ODT) 4 MG disintegrating tablet Indications: Nausea and vomiting during Take 1 tablet (4 mg) by mouth every 6 (six) hours if needed for nausea or vomiting 30 tablet 2 07/06/2024 08/05/2024 Activepenicillin v potassium 500 mg oral tablet (1 source)Start: 39-60-0013abdb 1 tablet by mouth every eight hoursPenicillin V Potassium 500 MG 1 tablet Orally tid for 10 day(s) 14 Apr, 2021 Active polysaccharide iron complex 391 mg oral capsule (5 sources)Start: 11-05-2024 End: 81-80-7171yxsk 1 capsule by mouth once dailyiron polysaccharides (ProFe) 391.3 (180 Fe) MG capsule Indications: Low hemoglobin Take 1 capsule (391.3 mg) by mouth Daily 30 capsule 3 11/05/2024 12/05/2024 ActivetiZANidine 4 mg oral tablet (2 sources)Central alpha-2 Adrenergic AgonistStart: 96-32-9108diqm 1 tablet by mouth every eight hours as needed for paintiZANidine (ZANAFLEX) 4 MG tablet Take 1 tablet by mouth every 8 hours as needed (pain and muscle tension/cramps) 10 tablet 0 12/14/2020 Active Completed/Discontinued Medications MedicationDrug Class(es)DatesSig (Normalized)Sig (Original)acetaminophen 325 mg oral tablet (1 source)Start: 09-19-2020 End: 39-80-5239ivlqhsexsddss (TYLENOL) tablet 650 mgCitalopram (7 sources)Serotonin Reuptake InhibitorCitalopram Hydrobromide Not-Taking/PRN take 1 tablet by mouth once dailycitalopram (CELEXA) 20 MG tablet Take 20 mg by mouth daily 0 ActiveCitalopram Hydrobromide Activeclotrimazole 10 mg oral lozenge (3 sources)Azole AntifungalStart: 76-70-8582Hncpairoirer 10 MG 1 wenceslao Mouth/Throat Three times a day for 7 day(s) Apr, Not-Taking/PRN medroxyPROGESTERone (4 sources)ProgestinDepo-Provera Not-Taking/PRNDepo-Provera Activemetoclopramide 10 mg oral tablet (12 sources)Dopamine-2 Receptor AntagonistStart: 07-16-2024 End: 52-96-7565zitivgkbssacex (Reglan) 10 MG tablet Indications: Nausea/vomiting in ([facility]) Take 1 tablet (10 mg) by mouth in the morning and 1 tablet (10 mg) at noon and 1 tablet (10 mg) in the evening. Take before meals. Take 1 tablet by mouth 30 minutes prior to meals 3 times daily as needed for patricia sea. 90 tablet 2 07/16/2024 09/30/2024 Discontinuednaproxen sodium 550 mg oral tablet (2 sources)Nonsteroidal Anti-inflammatory DrugStart: 05-24-2021 End: 08-08-0623trjjbzjh sodium (ANAPROX) tablet 550 mgStart: 89-62-3079hloh 1 tablet by mouth twice daily at mealtimenaproxen (NAPROSYN) 500 MG tablet Take 1 tablet by mouth 2 times daily (with meals) 20 tablet 1 05/24/2021 Active pantoprazole 40 mg delayed release oral tablet (17 sources)Proton Pump InhibitorStart: 02-17-2024 End: 82-15-9625qnjy 1 tablet by mouth before mealtimepantoprazole (ProtoNix) 40 MG EC tablet Take 40 mg by mouth in the morning. Take before meals. 02/17/2024 09/30/2024 DiscontinuedpredniSONE 20 mg oral tablet (3 sources)Start: 47-87-5727cgci 1 tablet by mouth every twelve hourspredniSONE 20 MG 1 tablet Orally 2 times a day for 5 day(s) Aug, Not-Taking/PRN Start: 84-06-6251cuby 1 tablet by mouth every twelve hourspredniSONE 20 MG 1 tablet Orally bid for 5 day(s) Apr, Active Problems Active Problems Problem ClassificationProblemDateDocumented DateEpisodic/ChronicAbdominal pain (11 sources)Pelvic and perineal pain; Translations: [Right lower quadrant pain] Onset: 26-25-3775XnwayjluTgynive dysrhythmias (20 sources)Postural orthostatic tachycardia syndrome ; Translations: [Postural orthostatic tachycardia syndrome (POTS)]Onset: 012265-79-4629Euvfssi Cardiac dysrhythmias (4 sources)Palpitations; Translations: [Palpitations]27-09-3765Eykvjgvy Coagulation and hemorrhagic disorders (1 source)Qualitative platelet defects; 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]Onset: 05-02-6049XeutaovKcsdjipsck disorders (4 sources)Gastroesophageal reflux disease; Translations: [Gastro-esophageal reflux disease without esophagitis]08-91-5861JvnvkmzSdgbnlph; including migraine (1 source)Cluster headache; Translations: [Cluster headache syndrome, unspecified, not intractable]69-42-6417BwyncsvSknnfyzbvklnl and screening for infectious disease (4 sources)Contact with and (suspected) exposure to other viral communicable diseases; Translations: [Exposureto sexually transmissible disorder]Onset: 04-07-2021 Resolved: 23-13-6204DuonoyyaFspyxsi and fatigue (20 sources)Fatigue; Translations: [Chronic fatigue, unspecified]Onset: 271714-69-2220JezfmurDaccsxftb disorders (20 sources)Disorder of menstruation; Translations: [Irregular menstruation, unspecified]Onset: 226489-94-6631WfmhyfjYxlvmer (3 sources)Candidal stomatitis; Translations: [Mycosis]Onset: 05-11-2021 Resolved: 51-01-2184BkrdiorkEulpgy and vomiting (4 sources)Nausea; Translations: [Nausea]84-16-4880QtuubzooNnmos bone disease and musculoskeletal deformities (20 sources)Patricia Schlatter disease; 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]Onset: 826689-54-7378RcszwmeHizrv circulatory disease (1 source)Postural orthostatic tachycardia eswwcyie36-33-6394WwhadwlxFwqba complications of (1 source)Vomiting of , unspecified; Translations: [Unspecified vomiting of , unspecified as to episode of care or not applicable] 34-67-7487UsfnzwocBdkdc gastrointestinal disorders (2 sources)Diarrhea; Translations: [Diarrhea, unspecified]98-86-7626Ikhqcxsq Other gastrointestinal disorders (2 sources)Diarrhea, unspecified; Translations: [Diarrhea]78-76-3205Tjknwxbo Other gastrointestinal disorders (1 source)Dysphagia; Translations: [Dysphagia, unspecified]74-91-5799Rrphdgic Other gastrointestinal disorders (1 source)Dysphagia, unspecified; Translations: [Dysphagia, unspecified] 61-05-2351TadpxtfaAycda injuries and conditions due to external causes (1 source)Closed injury of head; Translations: [Unspecified injury of head, initial encounter]EpisodicOther injuries and conditions due to external causes (1 source)Injury of coccyx; Translations: [Unspecified injury of lower back, initial encounter]EpisodicOther injuries and conditions due to external causes (2 sources)Injury of left knee; Translations: [Unspecified injury of left lower leg, initial encounter]54-16-9672WvddvxfjPznsz nutritional; endocrine; and metabolic disorders (20 sources)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 imbalance; Translations: [Other obesity due to excess calories]Onset: 559808-07-8575PdwdvnsJmqmn nutritional; endocrine; and metabolic disorders (1 source)H/O: mhgwryqwzuccdt33-17-9756TjsumxzzUjkfi and delivery including normal (16 sources); Translations: [Encounter for supervision of normal , unspecified, unspecified trimester]71-91-6776YgvmianlGxqiq screening for suspected conditions (not mental disorders or infectious disease) (8 sources)Encounter for screening for malignant neoplasm of cervix; Translations: [Patient encounter status]Onset: 14-26-8753JyahivsrJiopk upper respiratory infections (9 sources)Streptococcal sore throat; Translations: [Strep throat]Onset: 05-01-2021 Resolved: 36-00-7201KskdxsfwLnnxvpcv codes; unclassified (2 sources)Gestation period, 11 weeks; Translations: [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 ]08-40-4022ObeismxfZfkgzceo codes; unclassified (2 sources)Gestation period, 15 weeks; Translations: [15 weeks gestation of ]91-17-7718QrzuytrvYfxtdioi codes; unclassified (2 sources)Gestation period, 19 weeks; Translations: [19 weeks gestation of ]80-56-3432GgyexztvVrramytr codes; unclassified (2 sources)Gestation period, 23 weeks; Translations: [23 weeks gestation of ]47-92-9491YawyifosHksszhai codes; unclassified (2 sources)Gestation period, 27 weeks; Translations: [27 weeks gestation of ]27-30-5355TalnhqfxBsiillkf codes; unclassified (2 sources)Gestation period, 29 weeks; Translations: [29 weeks gestation of ]31-96-8430IhottoxvUiosbeov codes; unclassified (2 sources)Gestation period, 31 weeks; Translations: [31 weeks gestation of ]77-36-3461FzikmvciLmplsvsfe-related disorders (20 sources)Cigarette smoker ; Translations: [Nicotine dependence, cigarettes, uncomplicated]Onset: 358693-30-9276YjblvlkQnniqkcduye injury; contusion (1 source)Contusion of left knee; Translations: [Contusion of left knee, initial encounter]EpisodicSyncope (2 sources)Syncope; Translations: [Syncope]Onset: 72-50-3141NpoclyxxFxxdzyt disorders (20 sources)Evan thyroiditis; Translations: [Autoimmune thyroiditis]Onset: 233925-37-0226EpijvtuFsxhnidxlrye (2 sources)Unknown / UNK(Unknown)Onset: 10-42-7866Xcqokxrnsgwr (2 sources)New Patient; Translations: [New Patient]Onset: 96-67-2991Hcqlbstkivsg (2 sources)POTSOnset: 11-27-2024 Past or Other Problems Problem ClassificationProblemDateDocumented DateEpisodic/ChronicChronic obstructive pulmonary disease and bronchiectasis (1 source)Bronchitis, not specified as acute or chronicOnset: 08-21-2021 Resolved: 57-21-8888EgzkukxaZkxvdvpuo (5 sources)Influenza; Translations: [Influenza A]Other circulatory disease (4 sources)Orthostatic hypotension; Translations: [ORTHOSTATIC HYPOTENSION] Onset: 37-13-0315OoihxullYikji circulatory disease (20 sources)Low blood pressure; Translations: [Hypotension, unspecified]Onset: 093599-86-0674JdgmttmfWeioa non-traumatic joint disorders (20 sources)Pain in left knee; Translations: [Pain in joint, lower leg]Onset: 061005-14-8776IdczquvkZczgb nutritional; endocrine; and metabolic disorders (20 sources)Body mass index 25-29 - overweight; Translations: [Overweight]Onset: 12-10-2022 Resolved: 463447-28-6593JpdhjfcjMfvidri cyst (20 sources)Cyst of ovary; Translations: [Unspecified ovarian cyst, unspecified side]Onset: 193408-39-6596Kjeviidc Results Test NameValueInterpretationReference RangeFacilityUS OB BPP W NON-STRESS on 90-88[place]95[place] [address] Ultrasound Report Signed Patient: ALETA CASTRO MR#: [id number] : 2000 Acct:[id number] Age/Sex: 24 / F ADM Date: 01/02/25 Loc: US Attending Dr: Doc Thomas D.O. Ordering Physician: Doc Thomas D.O. 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 heart rate: 140 bpm Amniotic fluid index: 13.84 cm with the deepest vertical pocket measuring 6.39 cm. Biophysical profile: breathing movements: 2/2 Gross body movements: 2/2 tone: 2/2 Amniotic fluid volume: 2/2 US/US OB BPP w non-stress IMPRESSION: Biophysical profile: 10/23 Impression dictated by: Emmanuel Dalton M.D. 01/02/2025 3:02 PM Dictation Location: [place] [address] Electronically authenticated by: [id number] Y Date: 01/02/2025 15:02 Dictated By: Emmanuel Dalton M.D. Signed By: 01/02/25 1505 DD/ 1502 TD/TT: Principal Librarian:MARTINEadiologkehinde, Radiologist, - 01/02/2025 [place] [address] Ultrasound Report Signed Patient: ALETA CASTRO MR#: [id number] : 2000 Acct:[id number] Age/Sex: 24 / F ADM Date: 01/02/25 Loc: US Attending Dr: Doc Thomas D.O. Ordering Physician: Doc Thomas D.O. 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 heart rate: 140 bpm Amniotic fluid index: 13.84 cm with the deepest vertical pocket measuring 6.39 cm. Biophysical profile: breathing movements: 2/2 Gross body movements: 2/2 tone: 2/2 Amniotic fluid volume: 2/2 US/US OB BPP w non-stress IMPRESSION: Biophysical profile: 10/23 Impression dictated by: Emmanuel Dalton M.D. 01/02/2025 3:02 PM Dictation Location: [place] [address] Electronically authenticated by: [id number] Y Date: 01/02/2025 15:02 Dictated By: Emmanuel Dalton M.D. Signed By: 01/02/25 1505 DD/ 1502 TD/TT: Principal Librarian: KYE SoaresRadiology Study observation (narrative)NOMS HealthcareUS OB BPP W NON-STRESSOrdered By: Radiologist Radiology on 96-53-4937HKELMercy Hospital South, [facility] Work Phone: aLL THYROID STIM HORMONEon [phone] and review of laboratory resultsAbnormalNOFreeman [facility] Institute Qn0.131 m[IU]/LLow [facility] HealthcareCLINISYNCNOMS HealthcareUS OB BPP W NON-STRESSon 12-26-2024 [place] [address] Ultrasound Report Signed Patient: ALETA CASTRO MR#: [id number] : 2000 Acct:[id number] Age/Sex: 24 / F ADM Date: 12/26/24 Loc: US Attending Dr: Doc Thomas D.O. Ordering Physician: Doc Thomas D.O. Date of Service: 12/26/24 Procedure(s): US OB BPP w non-stress Accession Number(s): [id number] cc: Doc Thomas D.O.; ROSALIE PAYNE [place] [address] Patient Name: ALETA CASTRO MRN: [id number] date: 2000 Sex: F Assigned Patient Location: US Current Patient Location: Accession/Order Number: [id number] Exam Date: 12/26/2024 09:00 Report Date: 12/26/2024 11:19 At the request of: DOC THOMAS DO Procedure: US OB BPP w non-stress Ultrasound biophysical profile INDICATION: Evan's disease. COMPARISON: 10/06/2024 FINDINGS: LYNN 12.4 cm. 8/8 score biophysical profile. Fetus is cephalic position with heart rate 152 beats per minutes. US/US OB BPP w non-stress Impression: 8 out of 8 score biophysical profile. Impression dictated by: Deshaun Aguilar M.D. 12/26/2024 11:19 AM Dictation Location: [facility] Electronically authenticated by: [id number] Y Date: 12/26/2024 11:19 Dictated By: Deshaun Aguilar M.D. Signed By: 12/26/24 1122 DD/ 1119 TD/TT: Principal Librarian:TBHRadiology, Radiologist, - 12/26/2024 [place] [address] Ultrasound Report Signed Patient: ALETA CASTRO MR#: [id number] : 2000 Acct:[id number] Age/Sex: 24 / F ADM Date: 12/26/24 Loc: US Attending Dr: Doc Thomas D.O. Ordering Physician: Doc Thomas D.O. Date of Service: 12/26/24 Procedure(s): US OB BPP w non-stress Accession Number(s): [id number] cc: Doc Thomas D.O.; ROSALIE PAYNE [place] [address] Patient Name: ALETA CASTRO MRN: [id number] date: 2000 Sex: F Assigned Patient Location: Current Patient Location: Accession/Order Number: [id number] Exam Date: 12/26/2024 09:00 Report Date: 12/26/2024 11:19 At the request of: DOC THOMAS DO Procedure: US OB BPP w non-stress Ultrasound biophysical profile INDICATION: Evan's disease. COMPARISON: 10/06/2024 FINDINGS: LYNN 12.4 cm. 8/8 score biophysical profile. Fetus is cephalic position with heart rate 152 beats per minutes. US/US OB BPP w non-stress Impression: 8 out of 8 score biophysical profile. Impression dictated by: Deshaun Aguilar M.D. 12/26/2024 11:19 AM Dictation Location: [facility] Electronically authenticated by: [id number] Y Date: 12/26/2024 11:19 Dictated By: Deshaun Aguilar M.D. Signed By: 12/26/24 1122 DD/ 1119 TD/TT: Principal Librarian: KYE HealthcareRadiology Study observation (narrative)KYE HealthcareUS OB BPP W NON-STRESSOrdered By: Radiologist Radiology on 65-84-8929[facility] Work Phone: US OB GROWTHon [phone], [place] [address] Ultrasound Report Signed Patient: ALETA CASTRO MR#: [id number] : 2000 Acct:[id number] Age/Sex: 24 / F ADM Date: 12/26/24 Loc: US Attending Dr: Dco Thomas D.O. Ordering Physician: Doc Thomas D.O. Date of Service: 12/26/24 Procedure(s): US OB growth Accession Number(s): [id number] cc: Doc Thomas D.O.; ROSALIE PAYNE [place] [address] Patient Name: ALETA CASTRO MRN: [id number] date: 2000 Sex: F Assigned Patient Location: US Current Patient Location: Accession/Order Number: [id number] Exam Date: 12/26/2024 09:00 Report Date: 12/26/2024 11:31 At the request of: DOC THOMAS DO Procedure: US OB growth Obstetric ultrasound for growth INDICATION: Evan's disease FINDINGS: Single live anterior cephalic presentation longitudinal lie. Amniotic fluid index 12.4 cm between the gestational age fifth and 95th percentile. Largest pocket of fluid 5.1 cm. heart rate 1 52 bpm. motion documented by the narrow fabrics weaver.. Estimated weight 2093 g 71.4%. Gestation age 32 weeks and 0 days. Biparietal diameter 7.93 m. Head circumference 30.7 cm. Otherwise the 10.6 cm. Abdominal circumference 28.9 cm. Femur length 6.4 cm. US/US OB growth IMPRESSION: Single live intrauterine of approximately 30 weeks Impression dictated by: Deshaun Aguilar M.D. 12/26/2024 11:31 AM Dictation Location: [place] [address] Electronically authenticated by: [id number] Y Date: 12/26/2024 11:31 Dictated By: Deshaun Aguilar M.D. Signed By: 12/26/24 1133 DD/ 1131 TD/TT: Principal Librarian:NINAHRadiology, Radiologist, - 12/26/2024 [place] [address] Ultrasound Report Signed Patient: ALETA CASTRO MR#: [id number] : 2000 Acct:[id number] Age/Sex: 24 / F ADM Date: 12/26/24 Loc: US Attending Dr: Doc Thomas D.O. Ordering Physician: Doc Thomas D.O. Date of Service: 12/26/24 Procedure(s): US OB growth Accession Number(s): [id number] cc: Doc Thomas D.O.; ROSALIE PAYNE [place] [phone] Patient Name: ALETA CASTRO MRN: [id number] date: 2000 Sex: F Assigned Patient Location: Current Patient Location: Accession/Order Number: [id number] Exam Date: 12/26/2024 09:00 Report Date: 12/26/2024 11:31 At the request of: DOC THOMAS DO Procedure: US OB growth Obstetric ultrasound for growth INDICATION: Evan's disease FINDINGS: Single live anterior cephalic presentation longitudinal lie. Amniotic fluid index 12.4 cm between the gestational age fifth and 95th percentile. Largest pocket of fluid 5.1 cm. heart rate 1 52 bpm. motion documented by the narrow fabrics weaver.. Estimated weight 2093 g 71.4%. Gestation age 32 weeks and 0 days. Biparietal diameter 7.93 m. Head circumference 30.7 cm. Otherwise the 10.6 cm. Abdominal circumference 28.9 cm. Femur length 6.4 cm. US/US OB growth IMPRESSION: Single live intrauterine of approximately 30 weeks Impression dictated by: Deshaun Aguilar M.D. 12/26/2024 11:31 AM Dictation Location: [place] [address] Electronically authenticated by: [id number] Y Date: 12/26/2024 11:31 Dictated By: Deshaun Aguilar M.D. Signed By: 12/26/24 1133 DD/ 1131 TD/TT: Principal Librarian: [facility]PITALRubia HealthcareRadiology Study observation (narrative)[facility] HealthcareUS OB GROWTHOrdered By: Radiologist Radiology on 49-14-4583JDHK [facility] Work Phone: Urinalysis macro (dipstick) panel (U)on 12-23-2024 Bilirubin, UANegativeNegative - 4(70) +++ mg/dLNOMS HealthcareBlood, UANegative Negative - 50 Randall/mcLNOMS HealthcareClarity, UAClearNOMS HealthcareColor, UA YellowNOMS HealthcareGlucose, UA1+Negative - 1999(110) ++++ mg/dLNOMS Healthcare Interpretation and review of laboratory resultsAbnormalNOMS HealthcareKetones, UANegativeNegative - 160(16) ++++ mg/dLNOMS HealthcareLeukocytes, UATrace Negative - 500+++ Rick/mcLNOMS HealthcareNitrite, UANegativeNegative - Positive NOMS HealthcarepH, UA65 - 9NOMS HealthcareProtein, UANegativeNegative - 2000(20) ++++ mg/dLNOMS HealthcareSpec Grav, UA1.0151 - 1.03NOMS HealthcareUrobilinogen, UA2.00.2 - 12 mg/dLNOMS HealthcareNOMS HealthcareUrinalysis macro (dipstick) panel (U)on 86-09-1048Kfebmdmdy, UANegativeNegative - 4(70) +++ mg/dLNOMS HealthcareBlood, UANegativeNegative - 50 Randall/mcLNOMS HealthcareClarity, UAClear NOMS HealthcareColor, UAYellowNOMS HealthcareGlucose, UANegativeNegative - 1999(110) ++++ mg/dLNOMS HealthcareInterpretation and review of laboratory resultsAbnormalNOMS HealthcareKetones, UANegativeNegative - 160(16) ++++ mg/dL NOMS HealthcareLeukocytes, UAPositiveNegative - 500+++ Rick/mcLNOMS Healthcare Comment on above:1+Nitrite, UANegativeNegative - PositiveNOMS HealthcarepH, UA75 - 9NOMS HealthcareProtein, UANegativeNegative - 2000(20) ++++ mg/dLNOMS HealthcareSpec Grav, UA1.011 - 1.03NOMS HealthcareUrobilinogen, UA0.20.2 - 12 mg/dLNOMS HealthcareNOMS HealthcareOffice Visiton 18-25-1292Tderqv-up visit [id number] Aleta Castro 2000 F Date Provider Department Center 11/27/2024 07925-RPAUTULESA SINGH TRES [place] Family History Family Status - Relation Status Age at Mother Alive Father Alive Level of Service:07012 [place] OFFICE/OUTPATIENT NEW LOW MDM 30 MINUTES Reason for Visit and Comments: New Patient [632] - New patient here today to establish care with cardiology Syncope [506] POTS [Other] Positive tilt table [Other] 6 months [Other]NormalUnDetwiler Memorial HospitalUrinalysis macro (dipstick) panel (U)on 53-01-7339Covnjyowe, UAPositiveNegative - 4(70) +++ mg/dLNOMS HealthcareComment on above:1+Blood, UANegativeNegative - 50 Randall/mcL NOMS HealthcareClarity, UAClearNOMS HealthcareColor, UAYellowNOMS Healthcare Glucose, UAPositiveNegative - 2000(110) ++++ mg/dLNOMS HealthcareComment on above:TraceInterpretation and review of laboratory resultsAbnormalNOMS HealthcareKetones, UANegativeNegative - 160(16) ++++ mg/dLNOMS Healthcare Leukocytes, UANegativeNegative - 500+++ Rick/mcLNOMS HealthcareNitrite, UA NegativeNegative - PositiveNOMS HealthcarepH, UA65 - 9NOMS HealthcareProtein, UA PositiveNegative - 2000(20) ++++ mg/dLNOMS HealthcareComment on above:TraceSpec Grav, UA1.031 - 1.03NOMS HealthcareUrobilinogen, UA0.20.2 - 12 mg/dLNorthern Regional HospitalCA ECHO DOPPLER COMPLETEon 59-46-8358DybAlbert[place] [address] Cardiology Report Signed Patient: ALETA CASTRO MR#: [id number] : 2000 Acct:[id number] Age/Sex: 24 / F ADM Date: 11/12/24 Loc: CARD Attending Dr: Luna Steen Ordering Physician: Luna Steen Date of Service: 11/12/24 Procedure(s): CA echo doppler complete Accession Number(s): [id number] cc: Luna Steen; ROSALIE PAYNE Patient Name: ALETA CASTRO MR#: [id number] : 2000 Exam Date: 11/12/2024 Ordering Doctor: LUNA STEEN [facility] ECHOCARDIOGRAM REPORT PROCEDURE: CA ECHO [...] on 11/24/2024 at 16:39 (more content not included)...TBHRadiology, Radiologist, - 11/24/2024 [place] [address] Cardiology Report Signed Patient: ALETA CASTRO MR#: [id number] : 2000 Acct:[id number] Age/Sex: 24 / F ADM Date: 11/12/24 Loc: CARD Attending Dr: Luna Steen Ordering Physician: Luna Steen Date of Service: 11/12/24 Procedure(s): CA echo doppler complete Accession Number(s): [id number] cc: Luna Steen; ROSALIE PAYNE Patient Name: ALETA CASTRO MR#: [id number] : 2000 Exam Date: 11/12/2024 Ordering Doctor: LUNA STEEN [facility] ECHOCARDIOGRAM REPORT PROCEDURE: CA ECHO [...] Signed By: 11/24/24 1640 DD/ 1639 TD/TT: Principal Librarian: KYE HealthcareRadiology Study observation (narrative)[facility] CenterCA ECHO DOPPLER COMPLETEOrdered By: Radiologist Radiology on 45-75-8505MGTQ [employer] Work Phone: ecg 12-LEADon 14-25-6593[place]zqAl[place], [place] [address] Electrocardiograph Report Signed Patient: ALETA CASTRO MR#: [id number] : 2000 Acct:[id number] Age/Sex: 24 / F ADM Date: 11/12/24 Loc: CARD Attending Dr: Luna Steen Ordering Physician: Luna Steen Date of Service: 11/12/24 Procedure(s): ECG 12 lead Accession Number(s): [id number] cc: [facility] Test Date: 2024-11-12 Pat Name: ALETA CASTRO Department: Room: - Gender: Female Technology Program Manager: : 2000 Requested By: LUNA STEEN Order Number: [id number] Reading MD: Lesa Singh Measurements Intervals Graff Rate: 79 P: 42 MA: 158 QRS: 81 QRSD: 90 T: 41 QT: 353 QTc: 405 Interpretive Statements SINUS RHYTHM Normal EKG No previous ECG available for comparison Electronically Signed On 11-13-2024 13:34:21 EDT by Lesa Singh Dictated By: Lesa Singh M.D. Signed By: 11/13/24 1334 11/13/24 1334 DD/ 1206 TD/TT: Principal Librarian:MARTINEadiologSelena busby, - 11/13/2024 [place] [address] Electrocardiograph Report Signed Patient: ALETA CASTRO MR#: [id number] : 2000 Acct:[id number] Age/Sex: 24 / F ADM Date: 11/12/24 Loc: CARD Attending Dr: Luna Steen Ordering Physician: Luna Steen Date of Service: 11/12/24 Procedure(s): ECG 12 lead Accession Number(s): [id number] cc: [facility] Test Date: 2024-11-12 Pat Name: ALETA CASTRO Department: Room: - Gender: Female Technology Program Manager: : 2000 Requested By: LUNA STEEN Order Number: [id number] Reading MD: Lesa Singh Measurements Intervals Graff Rate: 79 P: 42 MA: 158 QRS: 81 QRSD: 90 T: 41 QT: 353 QTc: 405 Interpretive Statements SINUS RHYTHM Normal EKG No previous ECG available for comparison Electronically Signed On 11-13-2024 13:34:21 EDT by Lesa Singh Dictated By: Lesa Singh M.D. Signed By: 11/13/24 1334 11/13/24 1334 DD/ 1206 TD/TT: Principal Librarian: KYE GarayG 12-LEADOrdered By: Radiologist Radiology on 67-21-2390XAJY Healthcare Work Phone: ECG 12-LEADon 45-28-9496Wozgyqpvn Study observation (narrative)NOMS HealthcareALL CBC WITH AUTO DIFFon 42-27-0674MWGEVXTRB ABSOLUTE LNDI6RFFJ HealthcareBasophils/100 WBC (Bld)0.2 %0.2 - 2.0 %[facility] Eosinophils/100 WBC (Bld)0.5 %Low0.9 - 7.0 %NOMS HealthcareErythrocyte distribution width (RBC) [Ratio]12.7 %11.0 - 15.0 %NOMS HealthcareHematocrit (Bld) [Volume fraction]31.2 %Low36.0 - 48.0 %[facility] CenterHemoglobin (Bld) [Mass/Vol]10.8 g/dLLow12.0 - 16.0 g/dLMercy Hospital South, formerly St. Anthony's Medical CenterIMMATURE GRANULOCYTES ABS AUTO0.01NOMS HealthcareImmature granulocytes/100 WBC (Bld)0.2 %0.0 - 0.5 %[facility] HealthcareInterpretation and review of laboratory resultsAbnormalNOJefferson Memorial Hospital LYMPHOCYTES ABSOLUTE EKPZ6WwiKSMH HealthcareLymphocytes/100 WBC (Bld)15 %Low20.5 - 60.0 %[facility] WestH (RBC) [Entitic mass]32.3 pg26.7 - 34.0 pgNOJefferson Memorial HospitalHC (RBC) [Mass/Vol]34.6 g/dL29.9 - 35.2 g/dLSaint Joseph Hospital WestV (RBC) [Entitic vol]93.4 fL81.0 - 99.0 fLJORDAN VALLEY MEDICAL [facility]ENTER HealthcareMONOCYTES ABSOLUTE AUTO0.5NONH HealthcareMonocytes/100 WBC (Bld)7.7 %1.7 - 12.0 %[facility] CenterNEUTROPHILS ABSOLUTE NHVD1LFUY HealthcareNeutrophils/100 WBC (Bld)76.4 %High43.0 - 75.0 % [facility] Medical CenterPlatelet mean volume (Bld) [Entitic vol]9.7 fL9.5 - 13.5 fLNOMS HealthcareTBH EO #0NOMS HealthcareTB QPH166AJAF [facility] ColumbusTB RBC3.34LowNOMS [facility] ColumbusTB WBC6.6NOMS HealthcareCLINISYNCNOMS HealthcareIGP,APTIMA HPV,AGE GDLNon 11-02-3321LCD GDLN ACOG TESTINGNote.[facility] HealthcareComment on above:TESTS RESULT FLAG UNITS REF RANGE LAB Clinician Provided Cytology Information Source.............Endocervix No. of containers..01 ThinPrep Vial Age Algo ACOG Yaa... -28 01 FLAG LEGEND: L-Low Normal,H-High Normal,LL-Alert Low,HH-Alert High <-Panic Low,>-Panic High,A-Abnormal,AA-Critical Abnormal Performed at: 01 =G [address] [address] Ludy Hector MD, IGP, RFX APTIMA HPV ASCUNote.NOMS HealthcareComment on above:TESTS RESULT FLAG UNITS REF RANGE LAB DIAGNOSIS: 02 NEGATIVE FOR INTRAEPITHELIAL LESION OR MALIGNANCY. THIS SPECIMEN WAS RESCREENED PART OF OUR TELEPHONE INTERCEPTOR OPERATOR PROGRAM. Specimen adequacy: 02 Satisfactory for evaluation. No endocervical component is identified. Performed by: 02 Brionna Mello, Utility Specialist ([facility]) QC reviewed by: 02 Polina Simons, Utility Specialist . 02 Note: Note 02 The Pap [...] <-Panic Low,>-Panic High,A-Abnormal,AA-Critical Abnormal Performed at: [address] [address] Ludy Hector MD, Performed at: =[address] [id number] Thread Roller: Ludy Hector MD, Phone: [phone] Performed at: [address] [id number] Thread Roller: Ludy Hector MD, Phone: [phone] BRUSH-SPATULA ENDOCERVIX CLINISYNCNOMS HealthcareRECURRENT VAGINITIS (HTRX)on 67-34-2868AGXCUCEMQ VAGINAE 0NOMS HealthcareATOPOBIUM VAGINAENot detectedNOMS HealthcareBVAB 2,3 (BACTERIAL VAGINOSIS ASSOCIATED BACTERIA 2, 3); MOBILUNCUS CYO5SRGF HealthcareBVAB 2,3 (BACTERIAL VAGINOSIS ASSOCIATED BACTERIA 2, 3); MOBILUNCUS SPPNot detectedNOMS HealthcareCANDIDA ALBICANS, PARAPSILOSIS, WFNRCDEYJD3ISWH HealthcareCANDIDA ALBICANS, PARAPSILOSIS, TROPICALISNot detectedNOMS HealthcareCANDIDA GLABRATA0 NOMS HealthcareCANDIDA GLABRATANot detectedNOMS HealthcareCANDIDA IJXEVB2DZBR HealthcareCANDIDA KRUSEINot detectedNOMS HealthcareCHLAMYDIA IUXCNIXBJGK9UXSR HealthcareCHLAMYDIA TRACHOMATISNot detectedNOMS HealthcareGARDNERELLA VAGINALIS0 NOMS HealthcareGARDNERELLA VAGINALISNot detectedNOMS HealthcareMEGASPHAERA (TYPES 1, 2)0NOMS HealthcareMEGASPHAERA (TYPES 1, 2)Not detectedNOMS Healthcare MYCOPLASMA GYICGENMIY2ZUSI HealthcareMYCOPLASMA GENITALIUMNot detectedNOMS HealthcareNEISSERIA SVRLKUPCNSV8CFQU HealthcareNEISSERIA GONORRHOEAENot detected NOMS HealthcareTRICHOMONAS FGQTHUVOI7BFFW HealthcareTRICHOMONAS VAGINALISNot detectedNOMS HealthcareNOMS HealthcareUrinalysis macro (dipstick) panel (U)on 53-84-5392Qcqtndzrs, UAPositiveNegative - 4(70) +++ mg/dLNOMS HealthcareBlood, UANegativeNegative - 50 Randall/mcLNOMS HealthcareClarity, UAClearNOMS Healthcare Color, UAYellowNOMS HealthcareGlucose, UAPositiveNegative - 2000(110) ++++ mg/dL NOMS HealthcareInterpretation and review of laboratory resultsAbnormalNOMS HealthcareKetones, UAPositiveNegative - 160(16) ++++ mg/dLNONH Healthcare Leukocytes, UANegativeNegative - 500+++ Rick/mcLNOMS HealthcareNitrite, UA NegativeNegative - PositiveNOMS HealthcarepH, UA65 - 9NOMS HealthcareProtein, UA PositiveNegative - 2000(20) ++++ mg/dLNOMS HealthcareSpec Grav, UA1.031 - 1.03 NOMS HealthcareUrobilinogen, UA0.20.2 - 12 mg/dLNOMS HealthcareNOMS HealthcareUS OB CERVICAL LENGTHon 85-38-9556[address] [address] Ultrasound Report Signed Patient: ALETA CASTRO MR#: [id number] : 2000 Acct:[id number] Age/Sex: 24 / F ADM Date: 10/06/24 Loc: US Attending Dr: Doc Thomas D.O. Ordering Physician: Doc Thomas D.O. Date of Service: 10/06/24 Procedure(s): US OB cervical length Accession Number(s): [id number] cc: Doc Thomas D.O.; ROSALIE PAYNE [address] [address] Patient Name: ALETA CASTRO MRN: [id number] date: 2000 Sex: F Assigned Patient Location: US Current Patient Location: US Accession/Order Number: [id number] Exam Date: 10/06/2024 14:25 Report Date: 10/06/2024 [...] Jr., D.O. 10/06/2024 2:26 PM Dictation Location: [place] [address] Electronically authenticated by: [id number] Y Date: 10/06/2024 14:26 Dictated By: Jermaine Nguyễn M.D. Signed By: 10/06/24 1428 DD/ 1426 TD/TT: Principal Librarian:TBHRadiology, Radiologist, MD - 10/06/2024 [place] [address] Ultrasound Report Signed Patient: ALETA CASTRO MR#: [id number] : 2000 Acct:[id number] Age/Sex: 24 / F ADM Date: 10/06/24 Loc: US Attending Dr: Doc Thomas D.O. Ordering Physician: Doc Thomas D.O. Date of Service: 10/06/24 Procedure(s): US OB cervical length Accession Number(s): [id number] cc: Doc Thomas D.O.; ROSALIE PAYNE [address] [address] Patient Name: ALETA CASTRO MRN: [id number] date: 2000 Sex: F Assigned Patient Location: US Current Patient Location: US Accession/Order Number: [id number] Exam Date: 10/06/2024 14:25 Report Date: 10/06/2024 [...] Jr., D.O. 10/06/2024 2:26 PM Dictation Location: [employer] Electronically authenticated by: [id number] Y Date: 10/06/2024 14:26 Dictated By: Jermaine Nguyễn M.D. Signed By: 10/06/24 1428 DD/ 25 TD/TT: Principal Librarian: KYE [facility] ColumbusRadiology Study observation (narrative)[facility] OB CERVICAL LENGTHOrdered By: Radiologist Radiology on 89-05-6073GHJA [employer] Work Phone: US OB 14+ WEEKS ANATOMY SCANon 28-63-9382BD OB 14+ WEEKS ANATOMY SCANFINDINGS: A single, live intrauterine is present with [...] period. TRANSCRIBED BY: ELECTRONICALLY SIGNED BY: Jermaine P Spirnak, MDNormalNot AvailableComment on above:Order Comment: US OB ANATOMY SINGLE W US OB CERVICAL LENGTH Estimated Date of Delivery: 02/20/25 Gestational Age as of 09/02/2024: 48y6yXtkvmkhyan macro (dipstick) panel (U)on 83-51-6995Sxxfkmdem, UANegativeNegative - 4(70) +++ mg/dLNOMS HealthcareBlood, UANegativeNegative - 50 Randall/mcLNOMS HealthcareClarity, UAClearNOMS Healthcare Color, UAYellowNOMS HealthcareGlucose, UANegativeNegative - 1999(110) ++++ mg/dL NOMS HealthcareInterpretation and review of laboratory resultsNormalNOMS HealthcareKetones, UANegativeNegative - 160(16) ++++ mg/dLNOMS Healthcare Leukocytes, UANegativeNegative - 500+++ Rick/mcLNOMS HealthcareNitrite, UA NegativeNegative - PositiveNOMS HealthcarepH, UA65 - 9NOMS HealthcareProtein, UA NegativeNegative - 1999(20) ++++ mg/dLNOMS HealthcareSpec Grav, UA1.0051 - 1.03 NOMS HealthcareUrobilinogen, UA1.00.2 - 12 mg/dLNOMS HealthcareNOMS Healthcare ALL THYROID STIM HORMONEon 08-88-6545SWP Qn0.836 m[IU]/LNOMS HealthcareCLINISYNC NOMS HealthcareUrinalysis macro (dipstick) panel (U)on 90-68-5982Ukbycuzug, UA NegativeNegative - 4(70) +++ mg/dLNOMS HealthcareBlood, UANegativeNegative - 50 Randall/mcLNOMS HealthcareClarity, UAClearNOMS HealthcareColor, UAYellowNOMS HealthcareGlucose, UANegativeNegative - 1999(110) ++++ mg/dLNOMS Healthcare Interpretation and review of laboratory resultsNormalNOMS HealthcareKetones, UA NegativeNegative - 160(16) ++++ mg/dLNOMS HealthcareLeukocytes, UANegative Negative - 500+++ Rick/mcLNOMS HealthcareNitrite, UANegativeNegative - Positive NOMS HealthcarepH, UA65 - 9NOMS HealthcareProtein, UANegativeNegative - 1999(20) ++++ mg/dLNOMS HealthcareSpec Grav, UA1.0251 - 1.03NOMS HealthcareUrobilinogen, UA0.20.2 - 12 mg/dLNOMS HealthcareNOMS HealthcareALL THYROID STIM HORMONEon 56-03-6893BGO Qn1.413 m[IU]/LNOMS HealthcareCLINISYNCNOMS HealthcareUrinalysis macro (dipstick) panel (U)on 81-53-6726Tbjlraajs, UANegativeNegative - 4(70) +++ mg/dLNOMS HealthcareBlood, UANegativeNegative - 50 Randall/mcLNOMS Healthcare Clarity, UAClearNOMS HealthcareColor, UAYellowNOMS HealthcareGlucose, UANegative Negative - 1999(110) ++++ mg/dLNONH HealthcareInterpretation and review of laboratory resultsAbnormalNOMS HealthcareKetones, UAPositiveNegative - 160(16) ++++ mg/dLNOMS HealthcareComment on above:40Leukocytes, UATraceNegative - 500+++ Rick/mcLNOMS HealthcareNitrite, UANegativeNegative - PositiveNOMS HealthcarepH, UA6.55 - 9NOMS HealthcareProtein, UANegativeNegative - 2000(20) ++++ mg/dLNOMS HealthcareSpec Grav, UA1.0251 - 1.03NOMS HealthcareUrobilinogen, UA1.00.2 - 12 mg/dLNOMS HealthcareNOMS HealthcareBOX TESTon 80-03-8208VMG TEST SENT OUTUNWEXNER MEDICAL CENTER NOMS ZfcvpobvhvYXW9QOYQMMMNJ MmukxwkfjhSKS79/06/09NONH HealthcareUNITY CLINISYNCMercy Hospital South, formerly St[facility] Medical CenterTBH DRUG SCREEN RAPID (URINE)on 69-89-9586KZOHNWARGLW SCREEN URINENegativeNEGATIVENOMS HealthcareBARBITURATES SCREEN URINENegative NEGATIVENOMS HealthcareBENZODIAZEPINES SCREEN URINENegativeNEGATIVENOMS HealthcareBUPRENORPHINE SCREEN URINENegativeNEGATIVENOMS HealthcareComment on above:DRUG CLASS TEST SYSTEM CUT-OFF CONCENTRATIONS ARE FOLLOWS: AMP (Amphetamine): 500 ng/mL BAR (Barbiturates): 200 ng/mL BZO (Benzodiazepines): 150 ng/mL BUP (Buprenorphine): 10 ng/mL ROMA (Cocaine): 150 ng/mL mAMP (Methamphetamine): 500 ng/mL MTD (Methadone): 200 ng/mL OPI (Opiates): 100 ng/mL OXY (Oxycodone): 100 ng/mL PCP (Phencyclidine): 25 ng/mL THC (Cannabinoids): 50 ng/mL TCA (Trycyclic Antidepressants): 300 ng/mL CANNABINOID SCREEN URINENegativeNEGATIVENOMS HealthcareCOCAINE SCREEN URINE NegativeNEGATIVENOMS HealthcareMETHADONE SCREEN URINENegativeNEGATIVENOMS HealthcareMETHAMPHETAMINES SCREEN URINENegativeNEGATIVENOMS HealthcareOPIATE SCREEN URINENegativeNEGATIVENOMS HealthcareOXYCODONE SCREEN URINENegative NEGATIVENOMS HealthcarePHENCYCLIDINE SCREEN URINENegativeNEGATIVENOMS Healthcare TRICYCLIC ANTIDEPRESSANT URINENegativeNEGATIVENOMS HealthcareCLINISYNCNOMS HealthcareHCG ( test) Ql (U)on 62-60-5899Zhvajkqzkcncka and review of laboratory resultsAbnormalNOMS HealthcarePreg Test, UrPositiveNegativeNOMS HealthcareNOMS HealthcareUS OB TRANSVAGINALon 01-71-7311UN OB TRANSVAGINALEXAM: US OB TRANSVAGINAL HISTORY: Dating. LMP was 05/16/2024. . COMPARISON: [...] II, MD, PHD at 19-Jul-2024 08:55:15 PM [facility] TeleradiologyNormalNot AvailableComment on above:Order Comment: US OB TRANSVAGINAL No LMP recorded.Urinalysis macro (dipstick) panel (U)on 58-89-1358Snbflmixo, UA NegativeNegative - 4(70) +++ mg/dLNOMS HealthcareBlood, UANegativeNegative - 50 Randall/mcLNOMS HealthcareClarity, UAClearNOMS HealthcareColor, UAYellowNOMS HealthcareGlucose, UANegativeNegative - 2000(110) ++++ mg/dLNOMS Healthcare Interpretation and review of laboratory resultsNormalNOMS HealthcareKetones, UA NegativeNegative - 160(16) ++++ mg/dLNOMS HealthcareLeukocytes, UANegative Negative - 500+++ Rick/mcLNOMS HealthcareNitrite, UANegativeNegative - Positive NOMS HealthcarepH, UA6.55 - 9NOMS HealthcareProtein, UANegativeNegative - 2000(20) ++++ mg/dLNOMS HealthcareSpec Grav, UA1.021 - 1.03NOMS Healthcare Urobilinogen, UA1.00.2 - 12 mg/dLNOMS HealthcareNOMS HealthcareCBC W Auto Differential panel (Bld)on 81-78-9116Yqkw form neutrophils (Bld) [#/Vol]CANCELED NOMS HealthcareComment on above:Result canceled by the ancillary.Band form neutrophils/100 WBC (Bld)CANCELED%NOMS HealthcareComment on above:Result canceled by the ancillary.Basophils (Bld) [#/Vol]19 10*3/uLNOMS Healthcare Basophils/100 WBC (Bld)0.4 %NOMS HealthcareBlasts (Bld) [#/Vol]CANCELED0 cells/uLNOMS HealthcareComment on above:Result canceled by the ancillary. Blasts/100 WBC (Bld)CANCELED%NOMS HealthcareComment on above:Result canceled by the ancillary.Eosinophils (Bld) [#/Vol]91 10*3/uLNOMS HealthcareEosinophils/100 WBC (Bld)1.9 %NOMS HealthcareErythrocyte distribution width (RBC) [Ratio]12.5 % 11.0 - 15.0 %NOMS HealthcareHematocrit (Bld) [Volume fraction]38.9 %35.0 - 45.0 %NOMS HealthcareHemoglobin (Bld) [Mass/Vol]12.8 g/dL11.7 - 15.5 g/dLNOMS HealthcareLymphocytes (Bld) [#/Vol]1282 10*3/uLNOMS HealthcareLymphocytes/100 WBC (Bld)26.7 %NOMS HealthcareMCH (RBC) [Entitic mass]30.6 pg27.0 - 33.0 pgNONH HealthcareMCHC (RBC) [Mass/Vol]32.9 g/dL32.0 - 36.0 g/dLNOMS HealthcareComment on above:For adults, a slight decrease in the calculated MCHC value (in the range of 30 to 32 g/dL) is most likely not clinically significant; however, it should be interpreted with caution in correlation with other red cell parameters and the patient's clinical condition. MCV (RBC) [Entitic vol]93.1 fL80.0 - 100.0 fLNONH HealthcareMetamyelocytes (Bld) [#/Vol]CANCELED0 cells/uLNOMS HealthcareComment on above:Result canceled by the ancillary.Metamyelocytes/100 WBC (Bld)CANCELED%NOMS HealthcareComment on above: Result canceled by the ancillary.Monocytes (Bld) [#/Vol]422 10*3/uLNOMS HealthcareMonocytes/100 WBC (Bld)8.8 %NOMS HealthcareMyelocytes (Bld) [#/Vol] CANCELED0 cells/uLNOMS HealthcareComment on above:Result canceled by the ancillary.Myelocytes/100 WBC (Bld)CANCELED%NOMS HealthcareComment on above: Result canceled by the ancillary.Neutrophils (Bld) [#/Vol]2986 10*3/uLNOMS HealthcareNeutrophils/100 WBC (Bld)62.2 %NOMS HealthcareNucleated RBC (Bld) [#/Vol]CANCELED0 cells/uLNOMS HealthcareComment on above:Result canceled by the ancillary.Nucleated RBC/100 WBC (Bld) [Ratio]CANCELED0 /100 WBCNOMS Healthcare Comment on above:Result canceled by the ancillary.Platelet mean volume (Bld) [Entitic vol]9.3 fL7.5 - 12.5 fLNOMS HealthcarePlatelets (Bld) [#/Vol]291 10*3/uLNOMS HealthcarePromyelocytes (Bld) [#/Vol]CANCELED0 cells/uLNOMS HealthcareComment on above:Result canceled by the ancillary.Promyelocytes/100 WBC (Bld)CANCELED%NOMS HealthcareComment on above:Result canceled by the ancillary.RBC (Bld) [#/Vol]4.18 10*6/uLNOMS HealthcareService comment (Unsp spec) [Interp]CANCELEDNOMS HealthcareComment on above:Result canceled by the ancillary.Variant lymphocytes/100 WBC (Bld)CANCELED0 - 10 %NOMS Healthcare Comment on above:Result canceled by the ancillary.WBC (Bld) [#/Vol]4.8 10*3/uL NOMS HealthcareIron and Iron binding capacity panelon 08-00-0749Wabd [Mass/Vol] 101 ug/dLNONH HealthcareIron binding capacity [Mass/Vol]340NOMS HealthcareIron saturation [Mass fraction]30NOMS HealthcareLaboratory - Chemistry and Chemistry - challengeon 35-36-9659Obyltqs [Mass/Vol]4.8 g/dL3.6 - 5.1 g/dLNONH Healthcare Albumin/Globulin [Mass ratio]1.8 {ratio}NOMS HealthcareALP [Catalytic activity/Vol]65 U/L31 - 125 U/LNOMS HealthcareALT [Catalytic activity/Vol]16 U/L 6 - 29 U/LNOMS HealthcareAST [Catalytic activity/Vol]14 U/L10 - 30 U/LNOMS HealthcareBilirubin [Mass/Vol]0.6 mg/dL0.2 - 1.2 mg/dLNOMS HealthcareCalcium [Mass/Vol]9.3 mg/dL8.6 - 10.2 mg/dLNOMS HealthcareChloride [Moles/Vol]107 mmol/L 98 - 110 mmol/LNOMS HealthcareCO2 [Moles/Vol]24 mmol/L20 - 32 mmol/LNOMS HealthcareCortisol [Mass/Vol]14.3 ug/dLmcg/dLNONH HealthcareComment on above: Reference Range: For 8 a.m.(7-9 a.m.) Specimen: 4.0-22.0 Reference Range: For 4 p.m.(3-5 p.m.) Specimen: 3.0-17.0 * Please interpret above results accordingly * Creatinine [Mass/Vol]0.71 mg/dL0.50 - 0.96 mg/dLNONH HealthcareGFR/1.73 sq M.predicted among non-blacks MDRD (S/P/Bld) [Vol rate/Area]122 mL/min/{1.73_m2}> OR = 60 mL/min/1.75e8YJNB HealthcareGlobulin (S) [Mass/Vol]2.6 g/dLNONH HealthcareGlucose [Mass/Vol]95 mg/dL65 - 99 mg/dLJORDAN VALLEY MEDICAL [facility]ENTER HealthcareComment on above: Fasting reference interval Potassium [Moles/Vol]4.2 mmol/L3.5 - 5.3 mmol/LNOMS HealthcareProtein [Mass/Vol] 7.4 g/dL6.1 - 8.1 g/dLNONH HealthcareSodium [Moles/Vol]139 mmol/L135 - 146 mmol/LNOMS HealthcareUrea nitrogen [Mass/Vol]16 mg/dL7 - 25 mg/dLNOJefferson Memorial Hospital Urea nitrogen/Creatinine [Mass ratio]SEE NOTE:[facility] HealthcareComment on above: Not Reported: BUN and Creatinine are within reference range. Laboratory - Serology - non-microon [id number] Ab [id number] [IU]/mLHigh < or = 1 IU/mLNOMS HealthcareTPO Ab Qn27 [IU]/mLHighNINFMercy Hospital South, formerly St[facility] CenterNo Panel Informationon [id number] and review of laboratory resultsAbnormal [facility] Associationg Organization Information Site ID: QTW Name: [facility] Address: [address] [place] [id number] Director: Urvashi TaborAdventHealth Durand Organization Information Site ID: QPT Name: [facility] Address: [address] [place] [address], [address] [place] [address] Director: Yonis PADILLANH HealthcareT3, [facility] 87-20-0183Pyjo T3 [Mass/Vol] 3.6 pg/mLNormal2.3-4.2Quest DiagnosticsComment on above:Performed By: #### 899, 14139, 866 #### [facility] [place] [address] In Service Education Teacher: Yonis Beck MDT4, [facility] 49-69-7128Shcc T4 [Mass/Vol]1.1 ng/dLNormal0.8-1.8Quest DiagnosticsComment on above:Order Comment: FASTING:NO FASTING: NOPerformed By: #### 899, 50947, 866 #### [facility] [place] [address] In Service Education Teacher: Yonis MARAVILLALa [facility] [id number] Qn1.98 m[IU]/LNormalQuest DiagnosticsComment on above:Result Comment: Reference Range > or = 20 Years 0.40-4.50 Ranges First trimester 0.26-2.66 Second trimester 0.55-2.73 Third trimester 0.43-2.91Performed By: #### 899, 90114, 866 #### [facility] [place] [address] In Service Education Teacher: Yonis Beck MDHCG ( test) IA.rapid Ql (U)Ordered By: Marcelle Espinosa on 35-33-7156GYG ( test) Ql (U)NegativeNationwide Children'S HospitalHCG,Urineon 10-01-1981Lbfz HCG ( test) Ql (U) NegativeNoAtrium Health Mountain Island Physician GroupComment on above:Result Comment: PERFORMED BY: [facility] [address] [place] [address] PATHOLOGIST PRECINCT I POLICE SERGEANT RAYMOND SUERO M.D.Performed By: #### UHCG #### [address] [place] [address] [facility] 65-68-4450LFmvdjjlc: [id number] Received: 09/03/23 Status: FRANKLYN Gonzales Num: [id number] Spec Type: Surgical Subm Dr: Marcelle Espinosa DO Tissues: A Small Intestine - Biopsy/Polyp (SMALL BOWEL BX) B GASTRIC FOR HP (GASTRIC HP) C Esophagus Biopsy (DISTAL ESOPHAGUS) D Esophagus Biopsy (PROXIMAL ESOPHAGUS) E Colon Biopsy (RANDOM RT COLON) F Colon Biopsy (RANDOM LT COLON) Procedures: HE/12, Gross/Micro L4/6, H PYLORI, IHC First AB Age/ Patient Sex Location Account Attending Physician Aleta Castro [id number] Marcelle Espinosa DO SPEC NUM: [id number] RECD: 09/03/23 STATUS: FRANKLYN GONZALES NUM: [id number] MIRIAM: 09/02/23- SUBM DR: Marcelle Espinosa DO ENTERED: 09/03/[address] [facility] [address]: SPEC TYPE: Surgical DEPT: S ORDERED: [...] mild squamous acanthosis and occasionally associated Specimen: [id number] Received: 09/03/23 Status: FRANKLYN Gonzales Num: [id number] Spec Type: Surgical Subm Dr: Marcelle Espinosa DO Tissues: A Small Intestine - Biopsy/Polyp (SMALL BOWEL BX) B GASTRIC FOR HP (GASTRIC HP) C Esophagus Biopsy (DISTAL ESOPHAGUS) D Esophagus Biopsy (PROXIMAL ESOPHAGUS) E Colon Biopsy (RANDOM RT COLON) F Colon Biopsy (RANDOM LT COLON) Procedures: /, Gross/Micro L4/6, H PYLORI, IHC First AB Patient: Aleta Castro N [id number] (Continued) Specimen: [id number] Received: 09/03/23 (Continued) Pathological Diagnosis (Continued) Signed (signature on file) Heather Villegas MD 09/05/23 1417 Specimen: [id number] Received: 09/03/23 Status: FRANKLYN Gonzales Num: [id number] Spec Type: Surgical Subm Dr: Marcelle Espinosa DO Tissues: A Small Intestine - Biopsy/Polyp (SMALL BOWEL BX) B GASTRIC FOR HP (GASTRIC HP) C Esophagus Biopsy (DISTAL ESOPHAGUS) D Esophagus Biopsy (PROXIMAL ESOPHAGUS) E Colon Biopsy (RANDOM RT COLON) F Colon Biopsy (RANDOM LT COLON) Procedures: /12, Gross/Micro L4/6, H PYLORI, IHC First AB Patient: Aleta Castro [id number] (Continued) Specimen: [id number] Received: 09/03/23 (Continued) Pathological Diagnosis (Continued) lymphocytic [...] 0.1 cm, entirely submitted (more content not included)...[facility] Physician [facility] CenterInsurance Correspondence Officeon 96-32-2869Gkdpgjocr Correspondence [id number]#1.00TIFFNormal [facility]'S HospitalIntraOperative Documentson 51-25-0374FzgflEvfmzjpaq [id number]#1.00TIFUniversity Hospitals Beachwood Medical CenterPostoperative Documentson 00-10-4704Nabjdnyzopouv Documents [id number]#1.00TIFUniversity Hospitals Beachwood Medical CenterMain OR Intraoperative Recordon 56-13-4240Kdhz OR Intraoperative Record IntraOp Document Type FT Summary Primary Physician: Myron Marroquin DO Finalized Date/Time: 04/25/23 09:04:33 Pt. Name: ALETA CASTRO/Sex: 2000 Female Med Rec #: [id number] Physician: Myron Marroquin DO Financial #: [id number] Pt. Type: A Room/Bed: [place] [address] Admit/Disch: 04/23/23 06:25:15 - 04/23/23 14:50:00 Institution: [...] nerve block performed by using ultrasound guidance. Eduardo, RICHARto assist with the block. Patient's heartrate 89, yg40-686% on room air. patient tolerated block well. Patient transported back to ASU bay 4 via cart. Patient placed on continous monitor, cart wheels locked andcall light in reach. RICHAR Conrad 04/25/23 Chart opened to review and send charges LRoth CSFA Case Attendance FT Entry 1 Entry 2 Entry 3 Case Attendee Luna NAPIER, Diony Marroquin DO, Myron Comer RN, Lyle Haas Role Performed Anesthesiologist Surgeon - Primary Propagation Manager - Primary Jewel Inspector Time In 04/23/23 08:50:00 04/23/23 09:15:00 04/23/23 08:50:00 Time Out 04/23/23 10:59:00 04/23/23 10:44:00 04/23/23 10:59:00 Procedure KNEE ARTHROSCOPY W/ ACL KNEE ARTHROSCOPY W/ ACL KNEE ARTHROSCOPY W/ ACL REPAIR(Left) REPAIR(Left) REPAIR(Left) Comments , anesthesia supervisor lens generating Last Modified By: Soulemyane RN, Lyle Comer RN, Lyle Comer RN, Lyle Haas 04/23/23 10:59:32 04/23/23 10:59:32 04/23/23 10:59:32 Entry 4 Entry 5 Entry 6 Case Attendee Regulo Rodgers, Garry Noel CST Role Performed Staff - Other Scrub - Primary INDUSTRIAL PROPERTY APPRAISER/SA Time In 04/23/23 08:50:00 04/23/23 08:50:00 04/23/23 [...] TEAR Outcomes Met? Yes Last Modified By: Souleymane MCQUEEN, Lyle Haas 04/23/23 09:18:54 Post-Care Text: The patient is free from signs and symptoms of infection Skin Assessment (Pre Procedure) FT Pre-Care Text: Implements (more content not included)...NormalAkron [facility]'S Hospital Consent for Anesthesiaon 20-34-0930Dxyyknd for Anesthesia [id number]#1.00TIFUniversity Hospitals Beachwood Medical CenterDischarge Instructionson 79-31-0898Buskjldvb Instructions [id number]#1.00TIFUniversity Hospitals Beachwood Medical CenterIntraOperative Documentson 18-61-3542ExdqvSkfglxugc Documents [id number]#1.00[facility] Harding HospitalOperative Reporton 57-69-7047Texocnhfh ReportSURGERY DATE: 04/23/2023 FIRE WATCHMAN: Garry Camacho CST PREOPERATIVE DIAGNOSIS: Left knee anterior cruciate ligament tear POSTOPERATIVE DIAGNOSIS: Left knee anterior cruciate ligament tear OPERATION: Left knee diagnostic operative arthroscopy with autograft zdqk-mfcdtp-kbxr anterior cruciate ligament reconstruction with InternalBrace augmentation ANESTHESIA: General as well as regional block ANESTHESIOLOGIST: KARTHIKEYAN Peacock ESTIMATED BLOOD LOSS: 10 mL INTRAVENOUS FLUIDS: Please see the operative record SPECIMEN: None COMPLICATIONS: None IMPLANTS: Arthrex owvn-qqfpid-sboc Tightrope system with the button for the [...] The anterior cruciate ligament was reconstructed using vogx-softkv-rvvk from patellar tendon autograft with this InternalBrace augmentation. This is the Arthrex TightRope system as described. PROCEDURE: After informed consent is obtained, the risks, complications, reasonable expectations ofthe above procedure are discussed at length. The patient is taken to the Operative Suite and placedon the operating room table in supine position. At this point, she is given a general anesthetic. This was preceded by a regional block. She is then appropriately positioned with a well- padded tourniquet to the left thigh. The leg [...] pathology is noted. After identifying no meniscal pathology,the isolated anterior cruciate ligament injury, the focus is to graft harvest. A longitudinal incision is made anteriorly. The dissection is carried down onto the level of the patellar tendon. The peritenon is elevated. The focus is first to the patellar block. This is taken in the standard fashionwith a template using small sagittal saw. A 10 mm offset scalpel was then utilized to take the central third of the patellar tendon down to the tibial tubercle where the same saw and instrumentation are used to harvest the tibial bone block. The graft is elevated, taken to the back table. The firstassistance does then prepare the graft. The area [...] luggage tagged accordingly through the lateral portal. Thefocus is then to the tibial tunnel. The guide for the tibia is then identified. This is placed in the standard position. The guide pin is placed followed by over reaming with a 10 mm finishing operator. Excess bone debris is again removed. The FiberLoop is then brought out through the tibial tunnel. Thegraft is taken across the tibial tunnel into the knee. The button is taken out the lateral femur. The femoral bone block is advanced into the knee. This is then manipulated into the femoral tunnel. This did seat quite nicely. This is tensioned on the femo (more content not included)...[facility] City HospitalComment on above:Result Comment: Electronically Signed By: Myron Marroquin DO\.br\Date and Time Signed: 04/24/23 07:15 ESTPreoperative Documentson 50-83-9744Icexihybuuoc Documents [id number]#1.00TIFFTwin City HospitalConsent for Procedure/Surgeryon 80-03-9730Bqejbbw for Procedure/Surgery [id number]#1.00TIFFNoAshtabula County Medical CenterConsent for Treatmenton 72-83-0082Ntrobix for Treatment [id number]#1.00[facility] HospitalDischarge Instructionson 27-47-7185Jruxpidsx Instructions ALETA CASTRO :2000 Visit Date:04/23/2023 Inpatient Discharge Instructions Your Care Team Admitting Physician - Pocos DO, Jc Referring Physician - Myron Marroquin DO Reason [...] been scheduled. Call for any problems. Where: [address] [place] [phone] (1) Medications What How Much When Instructions Next Dose New acetaminophen-oxycodone (Percocet 5 mg-325 mg oral tablet) 1 Tablets By Mouth As Directed 1-2 po Q4-6h prn pain Dx: S83.512D Duration: 7 days Pickup at [facility]/pharmacy #2345 New aspirin (Ecotrin 325 mg Tab-EC) 1 Tablets By Mouth Every day Pickup at [facility]/pharmacy #2345 Pharmacy Information [facility]/pharmacy #2345: [address], [place] [phone] Allergies Banana (Throat tightness, Hives, Vomiting) Latex (Hives, Swelling) azithromycin (Hives) midodrine (Numbness) Education Materials [place], [place] [facility] DISCHARGE INSTRUCTIONS: ANTERIOR CRUCIATE [...] dry. Do not soak in the tub orotherwise submerge the incision until nadia are removed. Any increase in pain, temperature or redness should be promptly reported to the office. ACTIVITY: You will be given a protocol of the Cruciate Ligament Reconstruction Program and therapy and this should be followed. After starting physical therapy, they will advise you when it is safe to begin tobear weight with crutches. Generally this is performed after you obtain good leg strength, unless ameniscus repair has been performed as well. DIET: [...] office for further clarification or any concerns. Myron Marroquin, DO [facility] [address] [place] [address] Reviewed: 06-23 Revised: 03/29 Common Emergency Awareness [...] please share your experie (more content not included)...Lorena [facility] Children'S HospitalComment on above:Result Comment: Electronically Signed By: Marcelo MCQUEEN, Shyla Acevedo\.br\Date and Time Signed: 04/23/23 10:58 ESTH&P Updateon 04-23-2023H&P [id number]#1.00TIFF [facility] HospitalMain OR PACU I Recordon 51-08-8951Vdox OR PACU I RecordPACU Phase I Document Type FT Summary Primary Physician: Myron Marroquin DO Finalized Date/Time: 04/23/23 12:22:33 Pt. Name: ALETA CASTRO/Sex: 2000 Female Med Rec #: [id number] Physician: Myron Marroquin DO Financial #: [id number] Pt. Type: A Room/Bed: [place] [address] Admit/Disch: 04/23/23 06:25:15 - Institution: Case Times [...] individualized perioperative plan of care The patient's rightto privacy is maintained The patient's value system, [...] with or improved from baseline levels established preoperativelyThe patient's cardiovascular status is consistent with or improved from baseline levels established preoperatively The patient's cardiovascular status is consistent with or improved from baseline levels established preoperatively The patient demonstrates and/or reports adequate pain control throughout the perioperative period The patient received appropriate medication(s), safely administered during the perioperativeperiod Acuity Level PACU I FT Entry 1 Start Time 04/23/23 11:00:00 Stop Time 04/23/23 11:58:00 Acuity Level Acuity Level I Last Modified By: Valencia Jimenez RN 04/23/23 12:22:29 Finalized By: Valencia Jimenez RN Document Signatures Signed By: Valencia Jimenez RN 04/23/23 12:22T[facility] HospitalMain OR Preoperative Recordon 49-12-7391Gxyj OR Preoperative RecordPreOp Document Type FT Summary Primary Physician: Myron Marroquin DO Finalized Date/Time: 04/23/23 08:50:41 Pt. Name: ALETA CASTRO/Sex: 2000 Female Med Rec #: [id number] Physician: Myron Marroquin DO Financial #: [id number] Pt. Type: A Room/Bed: [facility]/ Admit/Disch: 04/23/23 06:25:15 - Institution: Case Times [...] Signatures Signed By: Lyle Comer RN 04/23/23 08:50NormalAkron Children'S HospitalMonitor Record on 64-82-5402Znfjztr [id number]#1.00TIFF [facility] HospitalOperative Reporton 35-39-9430Vjrkwqlnt Report Patient: ALETA CASTRO Age: 22 years Sex: [...] Using maximal sterile barrier technique per current [facility] guidelines including hand hygeine, Guidance (Ultrasound used to identify anatomical landmarks, Using sterile gel and probe covers, Permanent image retained), The site was prepped with ChloraPrep. Procedure: Anesthetic Agent 0.5% Ropivacaine (20mL) with 4mg Decadron, Catheter size 21 guage, Catheter length 100 mm, Needle was inserted without pain or parasthesia in the conscious patient, Numberof attempts 1, Negative attempt at aspiration for [...] None, The patient tolerated the procedure as expected.Normal [facility] Medical CenterComment on above:Result Comment: Electronically Signed By: [facility] ()Cyrus.br\Date and Time Signed: 04/23/23 07:56 ESTPatient Education - Texton 46-50-4206Ctxdzpr Education - Text [place], [place] [facility] DISCHARGE INSTRUCTIONS: ANTERIOR CRUCIATE [...] dry. Do not soak in the tub orotherwise submerge the incision until nadia are removed. Any increase in pain, temperature or redness should be promptly reported to the office. ACTIVITY: You will be given a protocol of the Cruciate Ligament Reconstruction Program and therapy and this should be followed. After starting physical therapy, they will advise you when it is safe to begin tobear weight with crutches. Generally this is performed after you obtain good leg strength, unless ameniscus repair has been performed as well. DIET: [...] office for further clarification or any concerns. Myron Marroquin DO [facility] [address] [place] [address] Reviewed: 06-23 Revised: 03/29[facility] HospitalProgress Note-Physicianon 07-78-6985Abumzmol Note-PhysicianPatient: ALETA CASTRO Age: 22 years Sex: Female : 2000 Associated Diagnoses: None Author: [facility] (DO), Cyrus [place] Postoperative Information Postoperative disposition: Postoperative disposition: To [...] Daily, # 21 tab(s), Refills(s) 0, Pharmacy: [facility]/pharmacy #2345, 165, cm, 04/04/23 6:11:00 EST, Height/Length Dosing, 78, kg, 04/04/23 6:11:00 EST, Weight Dosing Percocet 5 mg-325 mg oral tablet: 1 tab(s), Oral, As Directed, 40 tab(s), Refill(s) 0, 1-2 po Q4-6hprn pain Dx: S83.512D Duration: 7 days, [facility]acy [facility]2345, 165, cm, 04/04/23 6:11:00 EST, Height/Length Dosing, 78, kg, 04/04/23 6:11:00 EST, Weight Dosing, Home Medications (2) Active Ecotrin 325 mg Tab-EC 325 mg = 1 tab(s), Oral, Daily Percocet 5 mg-325 mg oral tablet 1 tab(s), Oral, As Directed Problem list: All Problems H/O: hypothyroidism / SNOMED CT 149080955 / Confirmed POTS (postural orthostatic tachycardia syndrome) / SNOMED CT 0402622067 / Confirmed Physical Examination Vital Signs 04/23/2023 [...] Blood Pressure 1 (more content not included)... [facility] HospitalComment on above:Result Comment: Electronically Signed By: Cyrus Modi DO\.br\Date and Time Signed: 04/23/23 11:06 ESTProgress Note-PhysicianPatient: ALETA CASTRO Age: 22 years Sex: Female : 2000 Associated Diagnoses: None Author: Myron Marroquin DO Postoperative Information Procedure: L knee scope, ACL recon Preoperative Diagnosis: L ACL tear. Postoperative Diagnosis: same. Performed by: daniel. Jewel Inspector: Roby Camacho. Specimens Removed: none. Prosthesis: Arthrex. . Estimated Blood Loss: 10 ml. Complications: None. Anesthesia type: General, block.[facility] City HospitalComment on above:Result Comment: Electronically Signed By: Myron Marroquin DO\.br\Date and Time Signed: 04/23/23 10:54 ESTProgress Note-PhysicianPatient: ALETA CASTRO Age: 22 years Sex: Female [...] mL: 2 gram = 1 EA, Powder-Inj, IVPiggyback, PREOP, Routine, Start date 04/23/23 6:45:00 EST, 100 mL/hr, Infuse over 30 minute(s) Prescriptions Prescribed Ecotrin 325 mg Tab-EC: 325 mg = 1 tab(s), Oral, Daily, # 21 tab(s), Refills(s) 0, Pharmacy: [facility]/pharmacy #2345, 165, cm, 04/04/23 6:11:00 EST, Height/Length Dosing, 78, kg, 04/04/23 6:11:00 EST, Weight Dosing Percocet 5 mg-325 mg oral tablet: 1 tab(s), Oral, As Directed, 40 tab(s), Refill(s) 0, 1-2 po Q4-6hprn pain Dx: S83.512D Duration: 7 days, [facility]/pharmacy #2345, 165, cm, 04/04/23 6:11:00 EST, [...] All Problems H/O: hypothyroidism / SNOMED CT 237150040 / Confirmed POTS (postural orthostatic tachycardia syndrome) / SNOMED CT 3959146299 / Confirmed, Active Problems (2) H/O: hypothyroidism POTS (postural orthostatic tachycardia syndrome) Histories Past Medical History: No active or resolved past medical history items have been selected or recorded. Family History: No family history items have been selected or recorded. Procedure history: Laparoscopic left ovarian R/o ([id number]). Ovarian cyst removal (936005482). Social History Social & Psychosocial Habits Alcohol [...] U beta hCG Ql Negative . Plan [place] [employer] Anesthesiologists (ASA) physical status classification: Class II. Anesthetic Preoperative Plan: Anesthesia General. Regional Adductor Canal Block Left.[facility] City HospitalComment on above:Result Comment: Electronically Signed By: Urbano MENDEZ)Cyrus\Date and Time Signed: 04/23/23 07:41 ESTU BetaHcg Qualon 53-57-1360RDU.beta subunit (U) [Moles/Vol]NegativeNormKettering Health Washington TownshipComment on above:Performed By: #### [id number] ####[facility] [address] [place], [place] [address]Azvcvel for Procedure/Surgery on 14-75-7911Fudilho for Procedure/Surgery [id number]#1.00TIFFNoAshtabula County Medical CenterCBC w/ Auto Diffon 11-55-1500Tswhienk Absolute0.0 E9/LNormal0.0-0.2FOhioHealth Marion General HospitalComment on above:Performed By: #### [id number] ####[address] [address]Tkqisvnhx/100 WBC (Bld)0.4 %Normal0.0-2.0[facility] Children'S HospitalComment on above:Performed By: #### [id number] ####[address] [address]Lyc Absolute0.1 E9/LNormal0.0-0.5FOhioHealth Marion General HospitalComment on above:Performed By: #### [id number] ####[address] [address]Cjvkfnuqwvm/100 WBC (Bld)1.0 %Normal0.0-8.0[facility] Children'S HospitalComment on above:Performed By: #### [id number] ####[address] [address]Zuntojcvtso distribution width (RBC) [Ratio]12.6 %Kppkrs45.9-14.2FOhioHealth Marion General Hospital Comment on above:Performed By: #### [id number] ####[place] [address] [address]Asziszsmwu (Bld) [Volume fraction] 39.0 %Aysazw26.0-46.0[facility]'S HospitalComment on above:Performed By: #### [id number] ####[address] [address]Cmrnoiqwra (Bld) [Mass/Vol]13.1 g/cVPitbkz80.0-16.0[facility]'S HospitalComment on above:Performed By: #### [id number] ####[address] [address]Fbxzj Absolute1.4 E9/LNormal 1.0-4.0[facility]'S HospitalComment on above:Performed By: #### [id number] ####[address] [address] Lymphocytes/100 WBC (Bld)22.2 %Mveqbn25.0-50.0[facility]'S HospitalComment on above:Performed By: #### [id number] ####[address] [address]VWC (RBC) [Entitic mass]30.6 pgNormal 27.0-34.0[facility]'S HospitalComment on above:Performed By: #### [id number] ####[address] [address]SZLI (RBC) [Mass/Vol]33.7 g/yMFkfghg26.4-36.0[facility]'S HospitalComment on above:Performed By: #### 6936108 ####[address] [address]PII (RBC) [Entitic vol]91.0 eMAblndz54.0-100.0 [facility]'S HospitalComment on above:Performed By: #### [id number] ####[address] [address]Szqu Absolute0.4 E9/LNormal0.2-1.0[facility]'S HospitalComment on above: Performed By: #### [id number] ####[place] [address] [address]Vaqybdxnv/100 WBC (Bld)5.6 %Normal4.0-14.0[facility]'S HospitalComment on above:Performed By: #### [id number] ####[place] [address] [address]Wefykr Absolute4.6 E9/LNormal2.0-7.5FOhioHealth Marion General HospitalComment on above:Performed By: #### 4032546 ####[place] [address] [address]Mcftng Auto70.8 %Aljxvv02.0-75.0[facility]'S HospitalComment on above:Performed By: #### 8883568 ####[place] [address] [address]Llqfxanl361.0 E9/IPxbfxd379.0-500.0[facility]'S HospitalComment on above:Performed By: #### [id number] ####[address] [address]Ggshznov mean volume (Bld) [Entitic vol]7.7 fLNormal6.4-10.8[facility]'S HospitalComment on above:Performed By: #### [id number] ####[place] [address] [address]VMN5.3 E12/LNormal4.3-5.9[facility]'S HospitalComment on above:Performed By: #### [id number] ####[address] [address]LHC3.5 E9/LNormal4.0-11.0 [facility]'S HospitalComment on above:Performed By: #### [id number] ####[address] [address] Consent for Treatmenton 15-30-0961Lweaydq for Treatment [id number]#1.00TIFFNoalAkron Children'S HospitalHEMATOLOGYOrdered By: SYSTEM SYSTEM on 50-47-2676Nakmpsxa Absolute0.0 E9/L Normal0.0 - 0.2 E9/LRemisol HemeBasophils/100 WBC (Bld)0.4 %Normal0.0 - 2.0 % Remisol HemeEos Absolute0.1 E9/LNormal0.0 - 0.5 E9/LRemisol HemeEosinophils/100 WBC (Bld)1.0 %Normal0.0 - 8.0 %Remisol HemeErythrocyte distribution width (RBC) [Ratio]12.6 %Dzuljh42.9 - 14.2 %Remisol HemeHematocrit (Bld) [Volume fraction] 39.0 %Afykqe37.0 - 46.0 %Remisol HemeHemoglobin (Bld) [Mass/Vol]13.1 g/dLNormal 12.0 - 16.0 gm/dLRemisol HemeLymph Absolute1.4 E9/LNormal1.0 - 4.0 E9/LRemisol HemeLymphocytes/100 WBC (Bld)22.2 %Sbqrpr27.0 - 50.0 %Remisol HemeMCH (RBC) [Entitic mass]30.6 skOpdydj18.0 - 34.0 pgRemisol HemeMCHC (RBC) [Mass/Vol]33.7 g/qARwqmuc03.4 - 36.0 gm/dLRemisol HemeMCV (RBC) [Entitic vol]91.0 yYDnzhuy30.0 - 100.0 fLRemisol HemeMono Absolute0.4 E9/LNormal0.2 - 1.0 E9/LRemisol Heme Monocytes/100 WBC (Bld)5.6 %Normal4.0 - 14.0 %Remisol HemeNeutro Absolute4.6 E9/LNormal2.0 - 7.5 E9/LRemisol HemeNeutro Auto70.8 %Xpzugi35.0 - 75.0 %Remisol AawdNsucmusz374.0 E9/SRhlkix167.0 - 500.0 E9/LRemisol HemePlatelet mean volume (Bld) [Entitic vol]7.7 fLNormal6.4 - 10.8 fLRemisol HemeRBC4.3 E12/LNormal4.3 - 5.9 E12/LRemisol HemeWBC6.5 E9/LNormal4.0 - 11.0 E9/LRemisol HemeCOVID/FLU/RSV RT-PCRon 89-62-4126CAHS-CoV-2 (COVID-19) RNA QUEENIE+probe Ql (Unsp spec)Negative [place] Other COVID/FLU/RSV RT-PCRNegativeRose Hill Jimdo Other Quick Strepon 04-01-2023S. pyogenes Org specific cx Ql (Throat)NegativeRose Hill Jimdo Other Quick StrepNuHabitat Jimdo Other [place] Gallbladderon 77-76-4751OP GallbladderClinical History: Right upper quadrant pain. Diarrhea. Vomiting. Technique: Sonography [...] and signed by Cornelius Hernandez on 07/23/2022 1043NormalNoSt. Joseph Hospital Medical SpecialistPA ACOG PANEL 2: to 05-09-2022..NormalThe Bluffton HospitalComment on above:Performed By: #### [id number] #### [facility] [address] [place] [address] Dr. Yovanny Kelly Gdln ACOG Hnrisam58-44PvxytvImdWood County HospitalComment on above:Performed By: #### [id number] #### [facility] [address] [place] [address] Dr. Yovanny VillegasDIAGNOSIS:CommentMagruder Hospital on above: Result Comment: NEGATIVE FOR INTRAEPITHELIAL LESION OR MALIGNANCY.Performed By: #### [id number] #### [facility] [address] [place] [address] Dr. Yovanny VillegasMethodology:CommentMagruder Hospital on above: Result Comment: This liquid based ThinPrep(R) pap test was screened with the use of an image guided system.Performed By: #### [id number] #### [place] [address] [address] Yovanny VillegasNote:CommentMagruder Hospital on above:Result Comment: The Pap smear is a screening test designed to aid in the detection of premalignant and malignant conditions of the uterine cervix. It is not a diagnostic procedure and should not be used as the sole means of detecting cervical cancer. Both false-positive and false-negative reports do occur. .Performed By: #### [id number] #### [place] [address] Dr[address] Yovanny VillegasPerformed by:CommentMagruder Hospital on above: Result Comment: Deedee Navarrete Corrugated Fastener Driver (ASCP)Performed By: #### [id number] #### [place] [address] Dr[address] Yovanny VillegasReflex Criteria:CommentMagruder Hospital on above:Result Comment: The HPV DNA reflex criteria were not met with this specimen result therefore, no HPV testing was performed. .Performed By: #### [id number] #### [place] [address] [address] Yovanny VillegasSpecimen adequacy:[facility] on above:Result Comment: Satisfactory for evaluation. Endocervical and/or squamous metaplastic cells (endocervical component) are present.Performed By: #### [id number] #### [facility] [address] [place] [address] Dr. Yovanny VillegasCHLAMYDIA/GONOCOCCUS QUEENIE (SWAB/URINE/PAPon 92-53-9211Jsvgzdjac trachomatis, NAANegativeNormalNegativeMarietta Osteopathic ClinicComment on above: Performed By: #### CT/NGNA #### [facility] [address] [address] [address] Yovanny VillegasNeisseria gonorrhoeae, NAANegativeNormalNegativeThe Bluffton HospitalComment on above:Performed By: #### CT/NGNA #### [facility] [address] [address] [address] Yovanny VillegasVAGINITIS/VAGINOSIS DNA PROBEon 10-38-2602Herpyrw speciesNegative NormalNegativeThe Bluffton HospitalComment on above:Performed By: #### VAGINT #### [facility] [address] [place] [address] Dr. Yovanny Piresdnerella vaginalisNegativeNormalNegativeMarietta Osteopathic Clinic Comment on above:Performed By: #### VAGINT #### [facility] [address] [address] [address] Yovanny VillegasTrichomonas vaginalisNegativermalNegativeMarietta Osteopathic Clinic Comment on above:Performed By: #### VAGINT #### [facility] [address] [address] [address] Yovanny VillegasXR KNEE LEFT (3 VIEWS)on 44-85-0576JF KNEE LEFT (3 VIEWS) EXAMINATION: THREE XRAY [...] Signed by: Deshaun Aguilar MD 05/24/21 Final resultNormalMercy Waterbury Hospital fracture or dislocation. [facility] RIS CONSOLIDATEDEXAMINATION: THREE XRAY VIEWS OF THE LEFT KNEE 05/24/2021 8:48 pm COMPARISON: None. HISTORY: ORDERING SYSTEM PROVIDED HISTORY: pain eval occult bony injury TECHNOLOGIST PROVIDED HISTORY: pain eval occult bony injury FINDINGS: No fracture, dislocation, or focal osseous lesion is noted. No significant soft tissue abnormality seen. Deshaun Dorado MD - 05/24/2021 EXAMINATION: THREE XRAY VIEWS OF THE LEFT KNEE 05/24/2021 8:48 pm COMPARISON: None. HISTORY: ORDERING SYSTEM PROVIDED HISTORY: pain eval occult bony injury TECHNOLOGIST PROVIDED HISTORY: pain eval occult bony injury FINDINGS: No fracture, dislocation, or focal osseous lesion is noted. No significant soft tissue abnormality seen. IMPRESSION: No fracture or dislocation. [employer] Phone: radiology Study observation (narrative)[employer] Phone: XR KNEE LEFT (3 VIEWS)Ordered By: Deshaun Aguilar on 02-63-1726GyqgrPrimeloop Phone: COVID Quick Testingon 17-43-2252VpbzreHbswbiuqFdqar Jimdo Other Quick Strepon 05-01-2021. pyogenes Org specific cx Ql (Throat)PositiveRose Hill Jimdo Other Quuat StrepRose Hill Jimdo Other COVID Quick Testingon 94-84-1134YissnqWkflimgoHxysb Jimdo Other Quick Fluon 68-78-4812QKORJ Ab CF (S) [Titer]Negative [facility] DiBcom Other FLUBV Ab CF (S) [Titer]NegativeRose Hill Jimdo Other XR SACRUM COCCYX (MIN 2 VIEWS)on 26-98-1772NG SACRUM COCCYX (MIN 2 VIEWS)EXAMINATION: THREE XRAY VIEWS OF THE SACRUM/COCCYX 12/14/2020 3:10 am COMPARISON: None. HISTORY: ORDERING SYSTEM PROVIDED HISTORY: fall at work - hit xtdwe1ee TECHNOLOGIST PROVIDED HISTORY: fall at work - hit snjys5ww FINDINGS: The sacroiliac joints are normally aligned. The visualized portions the pelvis are. There is no fracture of the sacrum or coccyx evident. IMPRESSION: No acute osseous abnormality of the sacrum or coccyx evident. Interpreted by: Loc Oswald MD Signed by: Loc Oswald MD 12/14/20 Final resultNoFirelands Regional Medical Center South CampusXR SACRUM COCCYX (MIN 2 VIEWS)Ordered By: David Dominguez on 97-13-1960Zl acute osseous abnormality of the sacrum or coccyx evident.[employer] Phone: eXAMINATION: THREE XRAY VIEWS OF THE SACRUM/COCCYX 12/14/2020 3:10 am COMPARISON: None. HISTORY: ORDERING SYSTEM PROVIDED HISTORY: fall at work - hit nsyts7wd TECHNOLOGIST PROVIDED HISTORY: fall at work - hit fkcug0wh FINDINGS: The sacroiliac joints are normally aligned. The visualized portions the pelvis are. There is no fracture of the sacrum or coccyx evident. [employer] Phone: evinay [facility] Incoming Radiant Results From [facility] - 12/14/2020 3:24 AM EDT EXAMINATION: THREE XRAY VIEWS OF THE SACRUM/COCCYX 12/14/2020 3:10 am COMPARISON: None. HISTORY: ORDERING SYSTEM PROVIDED HISTORY: fall at work - hit laara4mg TECHNOLOGIST PROVIDED HISTORY: fall at work - hit nepjk1jo FINDINGS: The sacroiliac joints are normally aligned. The visualized portions the pelvis are. There is no fracture of the sacrum or coccyx evident. IMPRESSION: No acute osseous abnormality of the sacrum or coccyx evident. [employer] Phone: [facility] MemorialCoull Phone: ct HEAD WO CONTRASTon [id number] HEAD WO CONTRAST EXAMINATION: CT OF THE [...] Signed by: Maira Cruz MD 09/19/20 Final resultNormalAdena Regional Medical Center Head WO ContrastOrdered By: Luis Carlos Fragoso on 19-68-6187Qveumutwihyi noncontrast CT examination of the brain.[employer] Phone: eXAMINATION: CT OF THE HEAD WITHOUT CONTRAST 09/19/2020 [...] abnormality of the visualized skull or soft tissues.[employer] Phone: evinay, [facility] Incoming Radiant Results From [facility] - 09/19/2020 4:42 PM EDT EXAMINATION: CT [...] Unremarkable noncontrast CT examination of the brain. [employer] Work Phone: [facility] [employer] Work Phone: coding Summaryon [id number] SummaryCODING DATE: 10/27/2019 [facility] STATUS: Home PAYOR: [facility] ADMIT DX: REASON FOR VISIT DX: [...] By: Ashley Pablo Date Saved: 10/27/2019 03:10 [facility]2019 Novel Coronavirus (CoVID-19), QUEENIE LCon 51-42-3404GMYU-CoV-2, QUEENIE (COVID-19) LCNot DetectedNot [facility] Main CampusComment on above:Order Comment: [id number] Comment: This test was developed and its performance characteristics determined by [employer]. This test has not been FDA cleared [...] detected) result in this assay. Performed At: [facility] [address] [facility] [place] [id number] Ruba Washburn MD Ph:[phone] By: #### [id number] #### [facility] (DEFAULT) [address] [place], [place] [address]Xduyiod Formson 51-99-5108Tufaybc Forms [id number]#1.00GTKettering Health PrebleCNCO on 84-74-3855WGYFDsvgok TextToll Free: [phone] [address] [address]Vsnub: [phone]: [facility] [place], [place] [address]Kakro: [phone]: [facility]alk[address] [place], [place] [address]Adhyf: [phone]: Steve Pablo M.D., Ronaldo Marquez M.D.David Becerril M.D.Papito Sood D.O..Myriam Chaudhari M.D.Deandre Montoya M.D. Matthew Huff M.D.Date: July 15, 2017Re: Summer Earl WHOM IT MAY CONCERN:She was seen in our office today.Sincerely,Katelin Cardona PSR(signed electronically to expedite mailing)Kettering HealthCNOVSPon [id number] ([place]) Office ([place]) --------ALETA GARAY ([id number]) 89 FDate Time Provider Department07/15/17 3:15 PM MIAN BECERRIL [facility] During your visit today, we recorded the [...] hadmuch by way of surgeries. Feels her mens es seem heavy but would note she goesthrough [...] Number of children:Social History Main Topics Drug use:UnknownNo family history on file.Current Outpatient Prescriptions:fludrocortisone (FLORINEF) 0.1 mgtablet Take 0.1 mg by mouth once daily.levothyroxine (SYNTHROID) 125 mcg tablet TAKE 1 TABLET ON ANEMPTY STOMACH INTHE MORNING ONCE A DAY ORALLYBYSTOLIC 5 mg tablet TAKE 1 1/2 TABLETS BY MOUTH DAILYAT BEDTIMEmidodrine (PROAMITINE) 5 mg tablet Take 5 mg by mouth three times daily.No current facility-administered medications for this visit.REVIEW OF SYSTEMS:Constitutional: Baseline state of health, no fevers or chillsHead and neck: No neck stiffness or goiter.Respiratory: No cough or hemoptysis.Cardiovascular: POTS symptoms as notedGI: No nausea, vomiting, diarrhea or GI bleed.Skin: No rash or lesions. Denies easy bruising or petechiaeNeurologic: No focal weakness or sensory changes.Psychiatric: Normal affect.Hematopoietic: No easy bruising or enlarged lymphadenopathy.: No frequency or dysuria.PHYSICAL EXAMINATION:Resp 18 Wt 59.3 kg (130 lb 11.2 oz)General appearance: well appearing, alert, in no acute distress, well-hydrated,well nourishedNeuro: Gait normal.Collected: 05/15/17 104 3Resulting lab: [facility] MAIN LABORATORYValue: (NOTE)Comment: Performing Pathologist: Jo-Ann [...] develop anyissues certainly could consider further testingAlfred Gordy Barone 07/15/2017 3:10 PM SignedPatient went overmedication list. no changes .Referring Provider: DAVID BECERRIL [[id number]]Allergies As of Date: 07/15/2017(No Known Allergies)Date Reviewed: 07/15/2017Reviewed by: Giovana Norton - Fully AssessedReason for Visit: storage pool disease [Other] Cmt: follow upPrimary Visit Diagnosis:Abnormal laboratorytest [R89.9]Disposition: Return if symptoms worsen or fail [...] List As Of Date: 07/15/2017(None)Visit Notes:>> Giovana Errol Mon Jul 15, 2017 3:10 PM Status: SignedPatient went over medication list. no changes .Encounter Status:Closed by DAVID BECERRIL MD on 07/17/17[facility] [id number] ID: [id number]: David Escaleraervice: (none)Author Type: PhysicianType: Progress NotesFiled: 07/17/2017 1:14 PMNote Text:CHIEF COMPLAINT: platelet storage pool defectHISTORY OF PRESENT ILLNESS: Summer Tanisha is a 17 year old female who hasa history of POTS as well as hypermobility/joint laxity, presents afterwhole blood for electron microscopy obtained due to her clinical historynoted sli ghtly larger dense granules (see below). 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 Denies easy bruising or petechiaeNeurologic: No focal weakness or sensory changes.Psychiatric: Normal affect.Hematopoietic: No easy bruising or enlarged lymphadenopathy.: No frequency or dysuria.PHYSICAL EXAMINATION:Resp 18 Wt 59.3 kg (130 lb 11.2 oz)General appearance: well appearing, alert, in no acute distress,well-hydrated, well nourishedNeuro: Gait normal.Collected: 05/15/17 1043Resulting lab: [facility] MAIN LABORATORYValue: (NOTE)Comment: Performing Pathologist: Jo-Ann [...] or fibrinolyticsystem as a cause of a bleedi ng disorder. ?ASSESSMENT/PLAN: Aleta Garay is a 16 year old female with abnormal testas noted above. No history of bleeding issues. Platelet function screeningwas normal.1. 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 and no history of bleeding orissues with bruising-No cu rrent change in management indicated, this patient were to developany issues certainly could consider further testingAlfred Sandeep Becerril MDNormalCProMedica Defiance Regional HospitalPlatelet Func Scrnon 51-31-0127BUQ/ADP Wrkdbcrci48 CT (sec) Normal<118[facility] on above:Result Comment: Results are reported as Closure Time (CT) in seconds.Performed By: #### PLTSCP ####[place] [address] [address], [place] [phone]/EPI Miyoethvn645 CT (sec)Normal<199CleKettering Health Troy on above:Result Comment: Results are reported as Closure Time (CT) in seconds. Performed By: #### PLTSCP ####[place] [address] [place] [address], [place] [phone] Func Scr Interp(NOTE)NormalCleKettering Health Troy on above:Result Comment: Performing Pathologist: Jo-Ann Sesay M.D., Ph.D.The closure [...] of a bleeding disorder. Performed By: #### PLTSCP ####[address] [phone] CBCDIF (for [facility] use only)on 21-49-9816Gwj Baso<0.03Normal<0.11CDiley Ridge Medical Center on above: Performed By: #### RCBCDF ####[address] [phone] Mono0.53 k/uLNormal<0.87CleKettering Health Troy on above:Performed By: #### RCBCDF ####[place] [address] [place], [place] [phone] Neut2.59 k/uL Normal1.45-7.50[facility] on above:Performed By: #### EVANDF ####[address] [phone]/100 WBC Auto (Bld)0.4 %NormalOhio State East Hospitalment on above:Performed By: #### RACHEL ####[address] [phone] DiffNormal [facility] on above:Performed By: #### EVANDF ####[address] [phone] 10*3/uLNormal<0.46Ohio State East Hospitalment on above:Performed By: #### RACHEL ####[address] [phone]/100 leukocytes1.5 %Normal [facility] on above:Performed By: #### EVANDF ####[address] [phone] distribution width Auto Ratio (RBC)12.2 %Vimbaj34.5-15.0 [facility] Hospitalment on above:Performed By: #### EVANDF ####[place] [address] [address] [place], [place] [phone] (RBC)4.15 10*6/uLNormal3.90-5.20[facility] Comment on above:Performed By: #### EVANDF ####[place] [address] [place], [place] [phone] (RBC)0.0 /100 WBCNormal 0[facility] on above:Performed By: #### RACHEL ####[address], [place] [phone] (RBC)10*6/uLNormal<0.01[facility] on above:Performed By: #### RCBCDF ####[address] Av[address] [phone] (HCT)39.4 %Afihxa07.0-46.0 [facility] Hospitalment on above:Performed By: #### RCBCDF ####[address] [phone] mass conc (Bld)12.8 g/wCItcgmk96.5-15.5CDiley Ridge Medical Center on above:Performed By: #### RCBCDF ####[place] [phone] 10*3/uLNormal1.00-4.00[facility] Hospitalment on above:Performed By: #### RCBCDF ####[place] [phone]/100 whhzarqydy40.9 %NormalMercy Health Kings Mills Hospital on above:Performed By: #### RCBCDF ####[address] [phone] pGNormal 26.0-34.0[facility] on above:Performed By: #### RCBCDF ####[place] [address] [place] [address] [phone] mass conc (RBC)32.5 g/uLTsypee21.5-36.0[facility] on above:Performed By: #### RCBCDF ####[place] [address] [place] [address] [phone] mAYajpct77.0-100.0[facility] Medical CenterComment on above:Performed By: #### RCBCDF ####[place] [address] [address] [place], [place] [phone]/100 xwrfkyajia38.6 %NormalUniversity Hospitals Geauga Medical CenterComment on above:Performed By: #### RCBCDF ####[address] [place], [place] [phone]/100 WBC Auto (Bld)56.6 %NormalMercy Health Kings Mills Hospital on above:Performed By: #### RCBCDF ####[address] [phone] mean volume (PMV)10.2 fLNormal9.0-12.7CDiley Ridge Medical Center on above:Performed By: #### RCBCDF ####[address] [phone] 10*3/tXAnoxni866-773DftfsutlnUniversity Hospitals Geauga Medical Center Comment on above:Performed By: #### RCBCDF ####[facility] [place], [place] [phone] (Leukocytes)4.58 10*3/uLNormal 3.70-11.00[facility] Hospitalment on above:Performed By: #### RCBCDF ####[address] [phone] 70-40-1231PQNQDrpzis TextToll Free: [phone] [facility] - Ytrmwlgu[address] [place], [place] [address]Mjoem: [phone]: [facility] - Sgikx[address] [place], [place] [address]Tkbhc: [phone]: [facility] Centerwalk[address] [place], [place] [address]Gcwlt: [phone]: Steve Pablo M.D., Ronaldo Marquez M.D.David Becerril M.D.Papito Sood D.O..Carin Hoover M.D. FACROSaju A. Rajan, M.D.Date: April 29, 2017Re: Aleta GarayTO WHOM IT MAY CONCERN:She was seen in our office today.Sincerely,Karly Pizarro Psr(signed electronically to expedite mailing)Kettering HealthCNOVSPon [id number] (SP) Office ([place]) --------ALETA GARAY ([id number]) 89 FDate Time Provider Department04/29/17 2:30 PM MIAN BECERRIL HEMGASPER During your visit today, we recorded the following information about you: Temperature Pulse Respiration Blood pressure 97.2 degrees 76/minute 18/minute 107/56 Weight Last Period 58.3 kg 04/15Aljarred Becerril MD 04/29/2017 3:56 PM SignedCHIEF COMPLAINT: platelet storage pool defectHISTORYOF PRESENT ILLNESS: Aleta Garay is a 16 year old female who has ahistory of POTS as well as hypermobility/joint laxity, presents after wholeblood for electron microscopy obtained due to her clinicalhistory notedslightly larger dense granules (see below). Report [...] Main TopicsNo family history on file.Current Outpatient Prescriptions:fludrocortisone (FLORINEF) 0.1 mg tablet Take 0.1 mg [...] neck stiffness or goiter.Respiratory: No cough or hemoptysis.Cardiovascular: POTS symptoms as notedGI: No nausea, vomiting, [...] lesionsHead: normalOropharynx: negativeBack: no tenderness to palpationLungs: cl ear to auscultation, no wheezing or rhonchiHeart: Negative. RRR without murmur, gallop, or rubs. Noectopy.Abdomen: Normal abdominal exam, Abdomen soft, non- tender. Bowel sounds normal.Extremities: Extremities normal. No deformities, edema, or skin discoloration.Musculoskeletal: No joint swelling, deformity, or tenderness.Peripheral pulses: NormalNeuro: Gait normal.ASSESSMENT/PLAN: Aleta Garay is a 16 year old female with abnormal test asnoted above. No history of bleeding issues. Reviewed findings with the patientand her mother at length. 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]Order(s):PLATELET FUNCTION SCREEN [SQPLTSCP] Order #: [id number] FUTURE CBC + DIFF (FOR REMOTE [facility] USE) [SQRCBCDF] Order #: [id number] FUTUREDisposition: Return in about 6 weeks (around 2017).Follow-up and Disposition History RecordedPrescriptions as of 04/29/2017 Sig: FLUDROCORTISONE 0.1 MG TABLET Take 0.1 mg by mouthonce christiano* LEVOTHYROXINE 125 MCG TABLET TAKE 1 TABLET ON AN EMPTY STO* BYSTOLIC 5 MG TABLET TAKE 1 1/2 TABLETS BY MOUTH D* MIDODRINE 5 MG TABLET Take 5 mg by mouth three time*Problem List As Of Date: 0 04/29/2017(None)Encounter Status:Closed by DAVID BECERRIL MD on 04/29/17Normal [facility] Medical CenterPROGRESSon 83-75-8245GEGMSWLBJOF ID: [id number]: David Escaleraervice: (none)Author Type: PhysicianType: Progress NotesFiled: 04/29/2017 3:56 PMNote Text:CHIEF COMPLAINT: platelet storage pool defectHISTORY OF PRESENT ILLNESS: Aleta Garay is a 16 year old female who hasa history of POTS as well as hypermobility/joint laxity, presents afterwhole blood for electron microscopy obtained due to her clinical historynoted slightly larger dense granules (see below). Report notes deltastorage pool deficiency can be reportedin up to 80% of patients withPOTS. No functional testing has been completed.Patient denies issues with bleeding episodes- though admittedly, has nothad much by way of surgeries. Feels her menses seemheavy but would noteshe goes through 7 pads for a whole cycle. Denies issues with bleedingafter piper kaur.Notes symptomatic blood pressure lability associated with having [...] Main TopicsNo family history on file.Current Outpatient Prescriptions:fludrocortisone (FLORINEF) 0.1 mgtablet Take 0.1 mg by mouth once daily.levothyroxine (SYNTHROID) 125 mcg tablet TAKE 1 TABLET ON AN EMPTY STOMACHIN THE MORNING ONCE A DAY ORALLYBYSTOLIC 5 mg tablet TAKE 1 1/2 TABLETS BY MOUTH DAILYAT BEDTIMEmidodrine (PROAMITINE) 5 mg tablet Take 5 mg by mouth three times daily.No current facility-administered medications for this visit.REVIEW OF SYSTEMS:Constitutional: Baseline state of health, no fevers or chillsHead and neck: No neck stiffness or goiter.Respiratory: No cough or hemoptysis.Cardiovascular: POTS symptoms as notedGI: No nausea, vomiting, diarrhea or GI bleed.Skin: No rash or lesions.Neurologic: No focal weakness or sensory changes.Psychiatric: Normal affect.Endocrinology:No diabetes or thyroid disease.Hematopoietic: No easy bruising or enlarged lymphadenopathy.: No fr equency or dysuria.PHYSICAL EXAMINATION:BP 107/56 Pulse 76 Temp 36.2 ?C (97.2 ?F) (Oral) Resp18 Wt 58.3kg (128 lb 8 oz) LMP 04/15/2017General appearance: well appearing, alert, in no acutedistress,well-hydrated, well nourishedSkin: skin color, texture, turgor normal, no suspicious rashes or lesionsHead: normalOropharynx: negativeBack: no tenderness to palpationLungs: clear to auscultation, no wheezing or rhonchiHeart: Negative. RRR without murmur, gallop, or rubs. No ectopy.Abdomen:Normal abdominal exam, Abdomen soft, non-tender. Bowel soundsnormal.Extremities: Extremities normal. No deformities, edema, or skindiscoloration.Musculoskeletal: No joint swelling, deformity, or tenderness.Peripheral pulses: NormalNeuro: Gait normal.ASSESSMENT/PLAN: Aleta Garay is a 16 year old female with abnormal testas noted above. No history of bleeding issues. Reviewed findings with thepatient and her mother at length. Would check OVY276 at this time, furthertesting based on results.1. 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, choice of management likely to be influenced by history ofPOTSAlfred Sandeep Becerril MDNormjelly [facility] Vital Signs Date TimeVital SignValuePerforming QjgssxqvzEozocuxf51-48-0708 13:57-0400Body mass index (BMI) [Ratio]29.42 kg/h2DtmllytnLuna Steen PAID SEARCH MARKETING ANALYST Work Phone: [phone] CenterCdtcplyieu21-76-0011 13:57-0400Body rqfaox58.75 kgLuna Steen PAID SEARCH MARKETING ANALYST Work Phone: [phone] CenterPbnfvmbllb59-41-7500 13:57-0400Diastolic blood kqnvsqif75 mm[Hg]Luna Steen PAID SEARCH MARKETING ANALYST Work Phone: [phone] CenterMsugxaaein24-17-1872 13:57-0400Systolic blood xhrfalje748 mm[Hg]Luna Steen NP Work Phone: [phone] CenterKsvjtduelg45-45-5161 14:07-0400Body mass index (BMI) [Ratio]28.84 kg/n8Nwjan William DO Work Phone: NOJefferson Memorial HospitalFdvhcgrvls43-28-2664 14:07-0400Body nucowy63.2 kg Doc William DO Work Phone: [phone] CenterRdrmoegiup68-30-2934 14:07-0400Diastolic blood mm[Hg]Doc William DO Work Phone: 1([phone])002-[address] [place], [place] [address]Vemaepdtva44-10-8305 14:07-0400Systolic blood puaxxxeo057 mm[Hg]Doc William DO Work Phone: [phone]-[facility] CenterIftkcwjqys95-46-6999 14:04-0400Body mass index (BMI) [Ratio]29.95 kg/y3Phlpttrg Enio PAID SEARCH MARKETING ANALYST Work Phone: 1([phone])003-[address] [place], [place] [address]Wboyjynxxn38-54-2610 14:04-0400Body hjyfje20.15 kgKrniviaa Enio PAID SEARCH MARKETING ANALYST Work Phone: [phone] [place], [place] [address]Rkqiyyldbg45-31-4480 14:04-0400Diastolic blood ewvvcykq50 mm[Hg]Luna Enio PAID SEARCH MARKETING ANALYST Work Phone: [phone])671-[address] [place], [place] [address]Hphaxnueej08-09-0933 14:04-0400Systolic blood okbnuuca830 mm[Hg]Luna Enio PAID SEARCH MARKETING ANALYST Work Phone: [phone])778-[address] [place], [place] [address]Rdiedugfnz31-52-4403 14:39-0400Body mass index (BMI) [Ratio]28.49 kg/m2Pretty Chaidez PA Work Phone: 1(832)105-[address] [place], [place] [address]Gulabcjkjb37-05-0761 14:39-0400Body jnkrex36.3 kg Pretty Chaidez PA Work Phone: 1(311)858-[address] [place] [address]-13-2025 14:39-0400Diastolic blood rtyygwgg18 mm[Hg]Pretty Chaidez PA Work Phone: 1(082)170-[address] [place] [address]-13-2025 14:39-0400Systolic blood mm[Hg]Pretty Chaidez PA Work Phone: 1(625)464-[address] [place], [place] [address]Ofxrlginjb52-93-7132 15:34-0400Body mass index (BMI) [Ratio]28.29 kg/m5Ohuaf William DO Work Phone: 1(325)153-[address] [place], [place] [address]Napzsfqmlh16-07-4745 15:34-0400Body kqvyjq78.75 kgCorey William DO Work Phone: [phone] [place], [place] [address] 15:34-0400Diastolic blood llmxnvna39 mm[Hg]Doc William DO Work Phone: 1(433)276-[address] [place], [place] [address]Zhylpqkszv33-54-8409 15:34-0400Systolic blood mzstoxil806 mm[Hg]Doc William DO Work Phone: [facility] CenterSeflabaezn08-81-3314 14:27-0400Body mass index (BMI) [Ratio]30.21 kg/y4Jwpkh William DO Work Phone: [phone] [place], [place] [address]Qfdjrfkjcm93-27-0671 14:27-0400Body .83 kgCorey William DO Work Phone: [phone] [place], [place] [address]Edscuhipod60-60-1100 14:27-0400Diastolic blood wndqqosx70 mm[Hg]Doc William DO Work Phone: [facility] CenterKbrxfgjwvx38-86-7925 14:27-0400Systolic blood gzppxyle317 mm[Hg]Doc William DO Work Phone: [phone] [place], [place] [address]Snblipcavj99-33-1909 15:41-0500Body .6 cmDavid Pocos DO Work Phone: [facility] CenterHxdiqvvypv00-65-3319 15:41-0500Body mass index (BMI) [Ratio]30.21 kg/c6Akmvt Pocos DO Work Phone: [facility] CenterDvxylpvpzv63-42-7586 15:41-0500Body lhaztw62.83 kgDavid Pocos DO Work Phone: [facility] CenterEcsvbtpsig35-06-3286 15:26-0500Body vxzvsy044.6 Demond Payne MD Work Phone: [facility] CenterNlapquhigq58-14-7155 15:26-0500Body mass index (BMI) [Ratio]30.21 kg/j6HuxmqlRosalie Payne MD Work Phone: [facility] CenterWfxmetwafv22-16-6115 15:26-0500Body ehrqvt19.83 kgRosalie Payne MD Work Phone: [facility] CenterGtmyyloakw61-13-1045 15:26-0500Heart rate88 /min Rosalie Payne MD Work Phone: [facility] CenterHkbrwmtmez57-84-4299 15:26-0120YdP1% (BldA) [Mass fraction]98 %Rosalie Payne MD Work Phone: [facility] CenterAzbvxckfcv68-84-3541 08:00-0400Body dvimcg093.6 cmKelvin Schwartz DO Work Phone: [facility] CenterNalmshhmss35-50-6943 08:00-0400Body mass index (BMI) [Ratio]30.9 kg/p4JdkdtKelvin Schwartz Stackdriver Work Phone: [facility] CenterPdaevzwbbc18-32-4114 08:00-0400Body .65 kgKelvin Schwartz Stackdriver Work Phone: [facility] CenterJrfmawcipb56-84-8867 14:25-0400Diastolic blood fekznedy05 mm[Hg]MD Rosalie Payne Work Phone: 1([phone])327-[address] [place], [place] 5560206-17-2024 14:25-0400 Heart rate80 /minNV Felibertojay Payne Work Phone: [phone] [place], [place] 5560206-17-2024 14:25-0400 Respiratory rate18 /minMD Rosalie Payne Work Phone: [phone] [place], [place] [address]1006-17-2024 14:25-0400 SaO2% (BldA) [Mass fraction]100 %MD Rosalie Payne Work Phone: [phone])[facility] [place], [place] 5560206-17-2024 14:25-0400 Systolic blood wojsenen315 mm[Hg]MD Rosalie Payne Work Phone: 1(149)587-[address] [place], [place] 5560206-17-2024 11:31-0400 Body buekgt324.1 cmMD Rosalie Payne Work Phone: [phone]06-17-2024 11:31-0400 Body nyjwvbpegjj27.4 [degF]MD Rosalie Payne Work Phone: [phone] [place], [place] 5560206-17-2024 11:31-0400 Body .11 kgMD Rosalie Payne Work Phone: [facility]05-09-2024 14:21-0400 Body xsdyzn133.1 cm[facility]05-09-2024 14:21-0400Body mass index (BMI) [Ratio]28.3 kg/o4VnmvtdeywN[facility]05-09-2024 14:21-0400Body .11 kgN[facility]05-09-2024 14:21-0400Diastolic blood mm[Hg][facility] 07-25-2023 14:21-0400Heart rate81 /[facility] 07-25-2023 14:21-0400Systolic blood oaormirm384 mm[Hg][facility]01-17-2024 14:55-0500Diastolic blood mm[Hg]Myron Marroquin [address] [place], [place] 6232401-17-2024 14:55-0500Heart tdce420 /minDavid Pocos [address] [place], [place] 6232401-17-2024 14:55-0500Mean blood nznnqxwy377 mm[Hg]Myron Marroquin [address] [place], [place] 6232401-17-2024 14:55-0500 Systolic blood iuycowld860 mm[Hg]Myron Marroquin [address] [place], [place] 6232401-17-2024 14:53-0500Heart rate98 /minDavidwight Pocos [address] [place], [place] 6232401-17-2024 14:53-0843DjQ9% (BldA) [Mass fraction]99 %Myron Marroquin [address] [place], [place] 6232401-17-2024 14:53-0500 Diastolic blood oddlmgui58 mm[Hg]Myron Marroquin [address] [place], [place] 6232401-17-2024 14:53-0500Mean blood vdkvbtsa234 mm[Hg]Myron Marroquin [facility]01-17-2024 14:53-0500 Systolic blood crohjodv514 mm[Hg]Myron Caroos [facility]01-17-2024 14:52-0500 Respiratory rate16 /minDavid Pocos [facility]01-15-2024 10:45-0500Body sasjli971.1 cmAmanda Kristine Other [place] [facility] Other 01-15-2024 10:45-0500Body mass index (BMI) [Ratio] 28.29 kg/q0Sonhhg Kristine Other [facility] 01-15-2024 10:45-0500Body fkhxlzgisxi78.1 [degF]Destinee Kristine Other [place] [facility] Other 01-15-2024 10:45-0500Body ndufbx06.11 kgAmanda Kristine [facility] 01-15-2024 10:45-0500Respiratory rate18 /minAmanda Kristine Other [facility] 01-15-2024 10:45-5078JpE5% (BldA) [Mass fraction]99 % Destinee Kristine Other [employer] Other 06-06-2022 11:25-0400Body .1 cmPamela Martha Other [facility] Other 06-06-2022 11:25-0400Body mass index (BMI) [Ratio] 27.12 kg/x2Kifehu Martha Other [facility] Other 06-06-2022 11:25-0400Body sbxykeflcqa15.6 [degF]Carlie Thomas Other [facility] Other 06-06-2022 11:25-0400Body wrobwo52.94 kgCarlie Thomas Other [facility] Other 06-06-2022 11:25-0400Respiratory rate18 /minCarlie Thomas Other [facility] Other 06-06-2022 11:25-2863YxK7% (BldA) [Mass fraction]97 % Carlie Thomas Other [facility] [place] [facility] Other 03-09-2022 20:36-0500Body vpshjdogujk78.7 [degF]Artis Yoder DO Work Phone: [facility] MemorialTrialReachVuipav76-70-0016 20:36-0500Diastolic blood nkdiceyv51 mm[Hg]Artis Yoder DO Work Phone: [facility] MemorialTrialReachNyeoxs19-33-8596 20:36-0500Heart xgwb173 /min Artis Yoder DO Work Phone: [facility] MemorialTrialReachGuaktt35-25-8132 20:36-0500Respiratory rate16 /minArtis Yoder DO Work Phone: [facility] MemorialTrialReachWpphze74-59-1019 20:36-8141KiV6% (BldA) [Mass fraction]97 %Artis Yoder DO Work Phone: [facility] MemorialTrialReachXrquoy20-49-4296 20:36-0500Systolic blood oejuobjp183 mm[Hg]Artis Yoder DO Work Phone: [facility] MemorialTrialReachOtvyvr76-71-5725 13:10-0500Body hzaeql588.1 cm Adriana Garciaault Other [facility] Other 02-24-2022 13:10-0500Body mass index (BMI) [Ratio] 27.12 kg/m0Xussybgeb Jean Carlos Other [facility] Other 02-24-2022 13:10-0500Body ilsuvvudrni74.8 [degF] Adriana Garciaault Other [employer] Other 02-24-2022 13:10-0500Body jebqhv62.94 kgAdriana Evangelista Other [employer] Other 02-24-2022 13:10-0500Diastolic blood etdqmkgd50 mm[Hg] Adriana Jean Carlos Other [employer] Other 02-24-2022 13:10-0500Respiratory rate18 /minSfeliz Garciaault Other [employer] Other 02-24-2022 13:10-6892BeA4% (BldA) [Mass fraction]99 % Adriana Jean Carlos Other [employer] Other 02-24-2022 13:10-0500Systolic blood mm[Hg] Adriana Garciaault Other [employer] Other 02-14-2022 11:40-0500Body nxunzr205.1 Teresa Thomas Other [employer] Other 02-14-2022 11:40-0500Body mass index (BMI) [Ratio] 26.62 kg/h7Xhdgyo Martha Other [employer] Other 02-14-2022 11:40-0500Body .6 [degF]Carlie Thomas Other [facility] Other 02-14-2022 11:40-0500Body iwcrum29.58 kgCarlie Thomas Other [facility] [facility] Other 02-14-2022 11:40-0500Respiratory rate18 /minCarlie Thomas Other [facility] Other 02-14-2022 11:40-1069YjC8% (BldA) [Mass fraction]99 % Carlie Thomas Other [employer] Other 01-21-2022 12:00-0500Body .1 cmCreyes Ashley Other [employer] Other 01-21-2022 12:00-0500Body mass index (BMI) [Ratio] 26.62 kg/e4LplqfgSandeep Ramirez Other [facility] Other 01-21-2022 12:00-0500Body midiuwbyerl88.6 [degF]Sandeep Ramirez Other [facility] Other 01-21-2022 12:00-0500Body uvnrwz05.58 kgSandeep Ramirez Other [facility] Other 01-21-2022 12:00-2059TeV6% (BldA) [Mass fraction]98 % Sandeep Ramirez Other [facility] Other 09-28-2021 23:25-0400Diastolic blood hzdyogup13 mm[Hg] David Dominguez MD Work Phone: [facility] Work Phone: 1(564) 228-863009-28-2021 23:25-0400Systolic blood zagsgxmp510 mm[Hg] David Dominguez MD Work Phone: [facility] Work Phone: 1(807) 468-790809-28-2021 23:23-0400Body dapdvz807.1 Mira Dominguez MD Work Phone: [facility] [employer] Work Phone: 1(279) 292-180009-28-2021 23:23-0400Body mass index (BMI) [Ratio] 26.63 kg/t4IrglttvDavdi Dominguez MD Work Phone: [facility] Work Phone: 1(704) 198-599909-28-2021 23:23-0400Body vzbffjkafej48.29 [degF] David Dominguez MD Work Phone: [facility] Work Phone: 1(146) 380-817209-28-2021 23:23-0400Body .58 kgDavid Dominguez MD Work Phone: [facility] [employer] Work Phone: 1(936) 393-650609-28-2021 23:23-0400Heart rate79 /Sharon Dominguez MD Work Phone: [facility] Work Phone: 1(911) 314-426809-28-2021 23:23-0400Respiratory rate14 /Sharon Dominguez MD Work Phone: [facility] Work Phone: 1(761) 287-959609-28-2021 23:23-9676QaC3% (BldA) [Mass fraction]99 % David Dominguez MD Work Phone: [facility] Work Phone: 1(741) 494-288007-05-2021 15:56-0400Body owigddxzqxn46.6 [degF][facility] Phone: 1(872) 850-816007-05-2021 15:56-0400Diastolic blood zzubvpxq71 mm[Hg] [facility] Phone: 1(669) 761-175507-05-2021 15:56-0400Heart ehvv908 /[employer] Work Phone: 1(484) 847-972407-05-2021 15:56-0400Respiratory rate16 /minK[facility] MemorialTrial[facility] Work Phone: 1(627) 903-946607-05-2021 15:56-0945NgE8% (BldA) [Mass fraction]100 % [facility] Phone: 1(816) 246-604307-05-2021 15:56-0400Systolic blood tgxhmfhu065 mm[Hg] [facility] Phone: Encounters Encounter DateEncounter TypeCare ProviderFacilityStart: 01-05-2025 End: 44-80-4964Sqleul flowsheetCorey William DO Work Phone: noMS [facility] OBGYNStart: 01-05-2025 End: 30-38-9104Smzacx flowsheetCorey William DO Work Phone: no[facility] OBGYNStart: 01-02-2025 End: 89-30-7173Dyghliifl Result EncounterGeneric External Data ProviderNOMS External Department UnsolicitedStart: 01-02-2025 End: 92-44-2050Jclxqsffa Result EncounterGeneric External Data ProviderNOMS External Department UnsolicitedStart: 12-26-2024 End: 46-74-0546Lmxghoqfr Result EncounterGeneric External Data ProviderNOMS External Department UnsolicitedStart: 12-26-2024 End: 36-93-6376Qfigpuuko Result EncounterGeneric External Data ProviderNOMS External Department UnsolicitedStart: 12-23-2024 End: 38-30-1460Bzcexb flowsheetLuna Steen PAID SEARCH MARKETING ANALYST Work Phone: [facility] OBGYNStart: 12-23-2024 End: 72-83-1113Dxqsir flowsheetDaliaa Enio PAID SEARCH MARKETING ANALYST Work Phone: [facility] OBGYNStart: 12-23-2024 End: 09-34-8888Waukcmvi flow sheetKristina Enio PAID SEARCH MARKETING ANALYST Work Phone: [facility] OBGYNComment on above:Third trimester ([facility]); 31 weeks gestation of ([facility])Start: 12-23-2024 End: 19-45-6315epyjwutmtdBQNDGDOS EBERLYNot AvailableStart: 12-09-2024 End: 30-23-6041Xgujbm flowsheetCorey William DO Work Phone: [facility]BGYNStart: 12-09-2024 End: 02-22-9035Ukhzwo flowsheetCorey William DO Work Phone: [facility] OBGYNStart: 12-09-2024 End: 55-98-3786Djlqzyyp flow sheetCorey William DO Work Phone: [facility] OBGYNComment on above:Third trimester ([facility]); 29 weeks gestation of ([facility]); Yeast infectionStart: 12-09-2024 End: 69-62-5024hvfdzlkmwqKTRPB FAZIONot AvailableStart: 11-27-2024 End: 84-18-4114nazhzohftlGBOMJMagruder Hospitaltart: 11-25-2024 End: 55-89-1288Thlgcn flowsheetDaliaa Enio PAID SEARCH MARKETING ANALYST Work Phone: [facility]BGYNStart: 11-25-2024 End: 58-08-3928Aojdjb flowsheetKrniviaa Enio PAID SEARCH MARKETING ANALYST Work Phone: [facility] OBGYNStart: 11-25-2024 End: 49-34-0825Hyolibsa flow sheetDaliaa Enio PAID SEARCH MARKETING ANALYST Work Phone: [facility] OBGYNComment on above:Second trimester ([facility]); 27 weeks gestation of ([facility]); Evan's diseaseStart: 11-25-2024 End: 23-23-1111tbebfliisuRVODISNF SIMONEKATHERYNNot AvailableStart: 11-24-2024 End: 03-53-7342Jbbhemnol Result EncounterGeneric External Data ProviderNOMS External Department UnsolicitedStart: 11-24-2024 End: 36-41-3804Swnueuceu Result EncounterGeneric External Data ProviderNOMS External Department UnsolicitedStart: 11-12-2024 End: 66-37-1795Tnmcjiytj Result EncounterGeneric External Data ProviderNOMS External Department UnsolicitedStart: 11-12-2024 End: 03-57-6857Dpezpqeus Result EncounterGeneric External Data ProviderNOMS External Department UnsolicitedStart: 11-03-2024 End: 53-55-8060Jwngrfcxn Result EncounterGeneric External Data ProviderNOMS External Department UnsolicitedStart: 11-03-2024 End: 00-29-2137Fwndmztml Result EncounterGeneric External Data ProviderNOMS External Department UnsolicitedStart: 10-28-2024 End: 08-28-9210Imzcvns encounter procedurePretty ARELLANO Work Phone: NOM[facility] HealthcareStart: 10-28-2024 End: 41-53-2954Pzptndoq flow Arsenio ARELLANO Work Phone: [facility] OBGYNComment on above:Second trimester ([facility]); 23 weeks gestation of ([facility]); Diabetes mellitus screening; STD exposure; Well woman exam with routine gynecological exam; Heart palpitationsStart: 10-28-2024 End: 86-16-5831odfyxbcyqeXYT RAMEYNot AvailableStart: 10-28-2024 End: 32-46-6181Irvcel Herson ARELLANO Work Phone: [facility] OBGYNStart: 10-28-2024 End: 39-61-0453Vsqggx Herson ARELLANO Work Phone: [facility] OBGYNStart: 10-28-2024 End: 71-16-6034Grruuhueh Result EncounterGeneric External Data ProviderNOMS External Department UnsolicitedStart: 10-28-2024 End: 30-13-7824Wxznmbys Result EncounterLuna Enio SU Work Phone: noMS External Department UnsolicitedStart: 10-06-2024 End: 19-74-5273Aybtybvte Result EncounterCorey William DO Work Phone: NOM[facility] External Department UnsolicitedStart: 10-06-2024 End: 83-78-1160Oaxlgzecs Result EncounterCorey William DO Work Phone: noMS External Department UnsolicitedStart: 09-30-2024 End: 75-54-4105Gdrubtdr flow sheetCorey William DO Work Phone: noms BCP OBComment on above:19 weeks gestation of ([facility]); Second trimester ([facility])Start: 09-30-2024 End: 91-15-9183luccuutegyWBKQK FAZIONot AvailableStart: 09-28-2024 End: 84-00-9217Qvkaeetne Result EncounterGeneric External Data ProviderNOMS External Department UnsolicitedStart: 09-28-2024 End: 39-61-8882Vmwqedtyj Result EncounterGeneric External Data ProviderNOMS External Department UnsolicitedStart: 09-02-2024 End: 03-02-5636Mkdtaktk flow Arsenio ARELLANO Work Phone: NOMS BCP OBComment on above:Second trimester ([facility]); 15 weeks gestation of ([facility]); Screening, , for anatomic survey ([facility])Start: 09-02-2024 End: 68-87-8978rcznnjwwseUFN RAMEYNot AvailableStart: 09-02-2024 End: 56-23-3920Mrcsft Herson ARELLANO Work Phone: noms BCP OBStart: 09-02-2024 End: 54-60-9377Uqhhwo Herson ARELLANO Work Phone: NOAX BCP OBStart: 08-31-2024 End: 96-09-0369Tvljeyalp Result EncounterCorey William DO Work Phone: NOMS External Department UnsolicitedStart: 08-31-2024 End: 80-58-0983Ykihomhrc Result EncounterCorey William DO Work Phone: noMS External Department UnsolicitedStart: 08-05-2024 End: 29-29-3824Xcpilf flowsheetCorey William DO Work Phone: NOPU BCP OBStart: 08-05-2024 End: 68-18-6086Yuxtqg flowsheetCorey William DO Work Phone: NOOJ BCP OBStart: 08-05-2024 End: 75-34-1345Wxexkqpn flow sheetCorey William DO Work Phone: noms BCP OBComment on above:First trimester ; 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 ; 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[facility])Start: 08-05-2024 End: 69-65-3616ubbpryzuceFPRAM FAZIONot AvailableStart: 07-18-2024 End: 20-73-0331Jvsjqvhiu Result EncounterGeneric External Data ProviderNOMS External Department UnsolicitedStart: 07-18-2024 End: 79-29-2550Pqjtdqlpq Result EncounterGeneric External Data ProviderNOMS External Department UnsolicitedStart: 07-16-2024 End: 58-24-3514Swmbos outpatient visit 5 minutesNoms Bcp Ob William NurseNOMS BCP OBComment on above:GA: 3c4hJxboc: 07-16-2024 End: 97-57-8181annprodphbLFSMV FAZIONot AvailableStart: 02-26-2024 End: 24-80-1271Nubpqgm encounter procedureDavid A Pocos DO Work Phone: noms NB ORTHOComment on above:S/P reconstruction of ACL of left knee using bone-patellar tendon-bone autograft (Primary Dx)Start: 02-26-2024 End: 79-76-7139vmzaclcfnhJZUWM A POCOSNot AvailableStart: 02-19-2024 End: 49-67-8123Vtfgzf outpatient visit 25 minutesEdjay Payne MD Work Phone: NOMS CI FM 100Comment on above:Subclinical hypothyroidism (CMS/HCC) (Primary Dx); 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CMS/HCC); Cigarette smoker; Non morbid obesity due to excess calories; Postural orthostatic tachycardia syndrome (POTS); Abnormal bleeding in menstrual cycleStart: 02-19-2024 End: 58-18-3365uuftkzfrniXIMEDX J HEMEYERNot AvailableStart: 02-19-2024 End: 81-69-4872Rrekkw Rodriguez Payne MD Work Phone: NOM[facility] CI FM 100Start: 02-19-2024 End: 82-52-9718Oqjtrh Rodriguez Payne MD Work Phone: noms CI FM 100Start: 12-27-2023 End: 44-83-6450vrjmlwhozoGlni J Lilo PT Work Phone: NOYS FB PTComment on above:Acute pain of left knee (Primary Dx); Status post arthroscopic reconstruction of anterior cruciate ligament of left knee using quadricepstendon autograftStart: 12-27-2023 End: 69-52-0635Ttxlsh Za J Lilo PT Work Phone: NOMS FB PTStart: 12-27-2023 End: 95-12-3906Lbgqjp flowskearaKyle J Lilo PT Work Phone: NOER FB PTStart: 12-24-2023 End: 91-57-9170jbyebnfmgjNydrkgah Wright MAIL CARRIERS SUPERVISOR Work Phone: NOMS FB PTComment on above:Acute pain of left knee (Primary Dx); Status post arthroscopic reconstruction of anterior cruciate ligament of left knee using quadricepstendon autograftStart: 12-24-2023 End: 48-30-3770Uqrwin Pursuit VascularkearaThinkSuitmaribel Vieira MAIL CARRIERS SUPERVISOR Work Phone: NOMS FB PTStart: 12-24-2023 End: 78-34-1816Zgtbwd Nikita Vieira MAIL CARRIERS SUPERVISOR Work Phone: NOMS FB PTStart: 12-17-2023 End: 08-53-4354ttvwnchlngPmsz J Lilo PT Work Phone: NOMS FB PTComment on above:Acute pain of left knee (Primary Dx); Status post arthroscopic reconstruction of anterior cruciate ligament of left knee using quadricepstendon autograftStart: 12-17-2023 End: 70-57-9662Dncpqc flowsheetKyle J Lilo PT Work Phone: NOMS FB PTStart: 12-17-2023 End: 39-41-1585Vfinuz Za Yañez Lilo PT Work Phone: NOMS FB PTStart: 12-09-2023 End: 49-82-6092Znibwz Isabel Schwartz DO Work Phone: NOMS SWS ORTHOAOStart: 12-09-2023 End: 65-92-3287Ptwcfo flowsRadha Schwartz DO Work Phone: [phone] SWS ORTHOAOStart: 12-09-2023 End: 54-77-2657Odsfuqg encounter procedureKelvin Schwartz DO Work Phone: [phone] SWS ORTHOAOComment on above:Left knee injury, initial encounter (Primary Dx)Start: 12-03-2023 End: 70-62-5582vpjzlypbfcBsxagjot Wright MAIL CARRIERS SUPERVISOR Work Phone: NOM[facility] FB PTComment on above:Acute pain of left knee (Primary Dx); Status post arthroscopic reconstruction of anterior cruciate ligament of left knee using quadricepstendon autograftStart: 12-03-2023 End: 30-28-1890Kkwfrf Nikita Vieira [employer] SUPER[employer] Work Phone: [facility] FB PTStart: 12-03-2023 End: 29-81-9169Xedxdr Nikita Vieira [employer]IL [employer] SUPERVISOR Work Phone: noms FB PTStart: 11-19-2023 End: 39-80-3593elvgiamhkrZpwaex [place] PTANOMS FB PTComment on above:Acute pain of left knee (Primary Dx); Status post arthroscopic reconstruction of anterior cruciate ligament of left knee using quadricepstendon autograftStart: 11-19-2023 End: 08-64-6638Omfxoa flowsheetMariah [place] PTANOMS FB PTStart: 11-19-2023 End: 02-73-4211Ikvoym flowsheetMariah [place] PTANOMS FB PTStart: 11-12-2023 End: 96-87-1505idkplzgiccFlmafevt Wright [employer] SUPER[employer]OR Work Phone: noms FB PTComment on above:Acute pain of left knee (Primary Dx); Status post arthroscopic reconstruction of anterior cruciate ligament of left knee using quadricepstendon autograftStart: 11-12-2023 End: 82-67-5873Gqsmxz [employer] SUPER[employer]OR Work Phone: noms FB PTStart: 11-12-2023 End: 17-06-8777Borydy [employer] SUPER[employer]OR Work Phone: noms FB PTStart: 64-74-5522Ucy-patient / Non-visitMD Rosalie Payne Work Phone: Pending [facility] G[facility] Work Phone: Start: 09-02-2023 End: 39-79-6408Uwgkaoepe to same day surgery centerMD Rosalie Payne Work Phone: [facility] Work Phone: Start: 09-02-2023 End: 71-10-9400pucxcdcqhfUM Edward J Hemeyer Work Phone: [facility] Work Phone: Start: 07-25-2023 End: 84-73-1215iwvujxdbudFhbvkqoxoTriHealth Work Phone: Start: 07-25-2023 End: 98-27-0667Qsrsraf encounter procedurePending Sale To [facility] Gastro[facility]ology Work Phone: Start: 04-23-2023 End: 52-67-5957wbvgztgdolNxhhp A PocosFacility:FTMCStart: 55-96-4092Ikgpv Jennifer Kirby PT Work Phone: noms FB PTStart: 04-03-2023 End: 55-24-4531sqsbogzsigNvhws A PocosFacility:FTMCStart: 04-03-2023 End: 75-49-1908Cygavim encounter procedureDavid A [facility]os [facility] Start: 04-01-2023 End: 40-47-8953jmumfvjseoXvbfmk Kristine Other [employer] Jimdo Other Start: 76-62-9133Awzaai outpatient visit 15 minutes Destinee GrobFPG Urgent Care ClydeStart: 05-01-2022 End: 92-57-8741upfhyemaoqTR DOC WILLIAM .Facility:Z4Rdqyl: 08-21-2021 End: 10-92-5690kbwcpjkpgzQhdjiw Dymond Other noLocaMap Other Start: 68-33-3225Alnhec outpatient visit 15 minutes Carlie ThomasFPG Urgent Care ClydeStart: 07-26-2021 End: 22-25-5087eyensyadmrYG DOC WILLIAM .Facility:E0Bqxqj: 13-60-6451Huuywiscn department patient visitARTIS YODERMcKitrick Hospitaltart: 05-24-2021 End: 77-22-3787Mberuxsdd department patient visitArtis Yoder DO Work Phone: [facility] EDComment on above:Contusion of left knee, initial encounter (Primary Dx)Start: 05-11-2021 End: 24-84-6542sbzirqemzvNmohrkpgh Jean Carlos Other [employer]do Other Start: 97-31-4960Nsiaxw outpatient visit 15 minutes Adriana GarciawilbertoFPG Urgent Care ClydeStart: 05-01-2021(URG) Urgent Care Visit Carlie ThomasFPG [facility] Care ClydeStart: 05-01-2021 End: 78-26-2401maygzfjglyJydvei Dymond Other [employer]do Other Start: 04-07-2021 End: 73-14-2929rnozufiseuQbhkio Taylor Other [employer]do Other Start: 82-62-2239Bsnqmp outpatient visit 15 minutes Sandeep RamirezFPG Urgent Care ClydeStart: 12-14-2020 End: 74-59-3577Ouceuztse department patient visitCIPRIAN [facility] Centertart: 12-14-2020 End: 77-49-4446Ddlgmryzl department patient visitCiprfaith Dominguez MD Work Phone: [facility] EDComment on above:Tailbone injury, initial encounter (Primary Dx)Start: 09-19-2020 End: 99-21-6372Ijyshmaze department patient visitDayton Va Medical Center EDComment on above:Closed head injury, initial encounter (Primary Dx)Start: 07-15-2017 End: 18-12-6602GanwlbvtpbZCGJIZ P VARGASCleveland [facility] Centerart: 05-15-2017 End: 80-09-1466MmqhqprerqPYPOHV P VARGASCbarberton citizens hospitaland [facility]: 04-30-2017 End: 00-26-5560QbfaylqgmcAKBGPW P VARGASCleveland [facility]: 04-29-2017 End: 50-42-5084ClaybclgveLSWBWX P VARGASCleveland [facility]: 03-13-2017 End: 60-94-6036KmtfyxoqxxBIBBT AM MEGFacility:[facility] Procedures DateProcedureProcedure DetailPerforming ClinicianStart: 97-67-8528QL OB BPP W NON-STRESSGeneric External Data ProviderStart: 86-98-5763KH OB GROWTH Generic External Data ProviderStart: 29-89-7131QL OB BPP W NON-STRESS Generic External Data ProviderStart: 69-19-4268MXH THYROID STIM HORMONECorey William DO Work Phone: Start: 23-31-9151Jpdrg dip stick/tablet rgnt non-auto w/o micrscpKristina Enio PAID SEARCH MARKETING ANALYST Work Phone: Start: 50-24-8072Zwakc dip stick/tablet rgnt non-auto w/o micrscpCorey William DO Work Phone: Start: 46-37-0186Wmrmn dip stick/tablet rgnt non-auto w/o micrscpKristina Enio PAID SEARCH MARKETING ANALYST Work Phone: Start: 90-54-4705RC ECHO DOPPLER COMPLETEGeneric External Data ProviderStart: 27-31-1297EYU 12-LEADGeneric External Data Provider Start: 45-80-5056UWF CBC WITH AUTO DIFFKrniviaa Enio PAID SEARCH MARKETING ANALYST Work Phone: Start: 61-65-0453KSQGXOMGO VAGINITIS (HTRX)Luna Steen PAID SEARCH MARKETING ANALYST Work Phone: Start: 38-43-9626Wabug dip stick/tablet rgnt non-auto w/o micrscpKristina Enio PAID SEARCH MARKETING ANALYST Work Phone: Start: 41-22-4109YVO,APTIMA HPV,AGE GDLNAmy Dm PA Work Phone: Start: 08-43-5505AJ OB CERVICAL LENGTHCorey William DO Work Phone: Start: 95-86-6818Gczjv dip stick/tablet rgnt non-auto w/o micrscpCorey William DO Work Phone: Start: 39-87-8533MXZ THYROID STIM HORMONECorey William DO Work Phone: Start: 20-34-9492Oauef dip stick/tablet rgnt non-auto w/o micrscpAmy Dm ARELLANO Work Phone: Start: 03-57-7058RDB THYROID STIM HORMONEGeneric External Data ProviderStart: 19-13-5060Jmzaa dip stick/tablet rgnt non-auto w/o micrscpCorey William DO Work Phone: Start: 74-97-3605WFD TESTCorey William DO Work Phone: Start: 32-31-1378BFH DRUG SCREEN RAPID (URINE)Generic External Data ProviderStart: 18-74-9330Hqmro dip stick/tablet rgnt non-auto w/o micrscpCorey William DO Work Phone: Start: 97-71-5058Zmhisvhi blood count with white cell differential, automatedEdjay Payne MD Work Phone: Start: 16-33-2655Xhtjwjmaawjvo metabolic panelRosalie Payne MD Work Phone: Start: 30-31-0508Cntlbrumqhlbj antibodyRosalie Payne MD Work Phone: Start: 11-08-7693UhyocqiocbvsrrpgggicrrvgwdAQ Rosalie Payne Work Phone: Start: 69-22-5576Jdtfyat of reconstruction of anterior cruciate ligament tearStatus post arthroscopic reconstruction of anterior cruciate ligament of left knee using quadricepstendon autograftGretbrian Vieira PTA Work Phone: Start: 18-13-6246Dzjcgwpngm examination knee 3 views Artis Yoder DO Work Phone: Start: 48-29-2226Orqeo sacrum & coccyx minimum 2 views David Dominguez MD Work Phone: Start: 86-74-3182Vt head/brain w/o contrast material Luis Carlos Fragoso PA-C Work Phone: Cyst of ovary (disorder)Myorn Pocos History of operative procedure on kneeS/P reconstruction of ACL of left knee using bone-patellar tendon-bone autograft Myron Washburn Pocanaly DO Work Phone: History of reconstruction of anterior cruciate ligament tearStatus post arthroscopic reconstruction of anterior cruciate ligament of left knee using quadricepstendon autograftKyle J Lilo PT Work Phone: History of reconstruction of anterior cruciate ligament tearStatus post arthroscopic reconstruction of anterior cruciate ligament of left knee using quadricepstendon autograftGretchen Vieira MAIL CARRIERS SUPERVISOR Work Phone: History of reconstruction of anterior cruciate ligament tearStatus post arthroscopic reconstruction of anterior cruciate ligament of left knee using quadricepstendon autograftKyle J Lilo PT Work Phone: History of reconstruction of anterior cruciate ligament tearStatus post arthroscopic reconstruction of anterior cruciate ligament of left knee using quadricepstendon autograftGretchen Vieira MAIL CARRIERS SUPERVISOR Work Phone: History of reconstruction of anterior cruciate ligament tearStatus post arthroscopic reconstruction of anterior cruciate ligament of left knee using quadricepstendon autograftGretchen Vieira MAIL CARRIERS SUPERVISOR Work Phone: History of reconstruction of anterior cruciate ligament tearStatus post arthroscopic reconstruction of anterior cruciate ligament of left knee using quadricepstendon autograftNoniiah Tattersall MAIL CARRIERS SUPERVISOR Laparoscopic excision of cyst of left ovaryDavid Daniel Plan of Treatment DateCare ActivityDetailAuthorStart: 70-54-5142Bsztyyzvp vaccinationInfluenza Vaccine (#1)[facility] HealthcareComment on above:Postponed from 11/16/2024 (Patient Refused)Start: 01-05-2025 End: 36-17-9859Ggmycdn encounter procedureNOMS Alba OBGYNComment on above: ArrivedStart: 12-23-2024 End: 83-75-0431Eknjwsb encounter procedureNOMS Alba OBGYNComment on above: ArrivedStart: 12-23-2024 End: 21-92-8834Imkjgagocbor / ancillary services ftqgaoloqs38/08/2025 1:30 PM EDT Ancillary Procedure [facility] [address] 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), Expires: 05/25/2025[facility] Work Phone: comment on above:Expected: 11/25/2024 (Approximate), Expires: 05/25/2025Start: 11-25-2024 End: 18-01-3604HO for pregnancyUS OB follow up transabdominal approach Imaging Routine Evan's disease Expected: 11/25/2024, Expires: 03/27/2025NOMS HealthcareComment on above:Expected: 11/25/2024, Expires: 03/27/2025Start: 11-25-2024 End: 03-46-7112Noplmeh encounter procedureNOMS Alba OBGYNComment on above: ArrivedStart: 68-54-4751Njtgewptp vaccinationNOMS HealthcareStart: 10-28-2024 End: 54-17-1687Vofoonb encounter procedureNOMS BCP OBComment on above:Arrived Start: 10-28-2024 End: lead ECGECG 12 lead unit performed ECG Routine Heart palpitations Expected: 10/28/2024 (Approximate), Expires: 10/28/2025NOMS HealthcareComment on above:Expected: 10/28/2024 (Approximate), Expires: 10/28/2025Start: 10-28-2024 End: 60-07-0617JAX panel - Blood by Automated countCBC Lab Routine Diabetes mellitus screening Expected: 10/28/2024 (Approximate), Expires: 10/28/2025[facility] Work Phone: comment on above:Expected: 10/28/2024 (Approximate), Expires: 10/28/2025Start: 10-28-2024 End: 64-49-3956Gyadcpvchhpxfr 2D completeEchocardiogram 2D complete Echocardiography Routine Heart palpitations Expected: 10/28/2024 (Approximate), Expires: 10/28/2026NOMS HealthcareComment on above:Expected: 10/28/2024 (Approximate), Expires: 10/28/2026Start: 10-28-2024 End: 82-47-5564Dgxmggezzpn of glucose 1 hour after glucose challenge for glucose tolerance testGlucose tolerance, 1 hour Lab Routine Diabetes mellitus screening Expected: 10/28/2024 (Approximate), Expires: 10/28/2025NOMS HealthcareComment on above:Expected: 10/28/2024 (Approximate), Expires: 10/28/2025Start: 09-30-2024 End: 87-18-3838Lcqayic encounter etrdnrhuf64/16/2025 3:40 PM EDT Routine [facility] OB [address] [place] [phone] Doc Thomas, [place] [address] [facility] BCP OBStart: 09-30-2024 End: 71-75-4323Qnnfcjgfgjfw / ancillary services swajrhiwhl76/16/2025 2:30 PM EDT Ancillary Procedure [facility] OB [address] [place] [phone] [facility] BCP OBStart: 09-02-2024 End: 28-99-6294Sosrdix encounter procedureNOMS BCP OBComment on above:Arrived Start: 09-02-2024 End: 13-24-4331Qkecy fetoprotein, maternalAlpha fetoprotein, maternal Lab Routine Second trimester ([facility]) Expected: 09/02/2024 (Approximate), Expires: 11/02/2024NOMS HealthcareComment on above:Expected: 09/02/2024 (Approximate), Expires: 11/02/2024Start: 09-02-2024 End: 45-84-5979OK for pregnancyUS OB 14+ weeks anatomy scan Imaging Routine Screening, , for anatomic survey ([facility]) Expected: 09/02/2024, Expires: 12/03/2024[facility]H Healthcare Work Phone: comment on above:Expected: 09/02/2024, Expires: 12/03/2024Start: 08-05-2024 End: 56-50-1383Zjmngxn encounter procedureNOMS [facility] OBComment on above:Arrived Start: 07-16-2024 End: 53-10-7317LZI/RhABO/Rh Lab Routine Missed menses , unspecified gestational age Expected: 07/16/2024 (Approximate), Expires: 07/16/2025NONH HealthcareComment on above:Expected: 07/16/2024 (Approximate), Expires: 07/16/2025Start: 07-16-2024 End: 14-87-3442Nkjyw type and Indirect antibody screen panel - BloodType and screen Lab Routine Missed menses , unspecified gestational age Expected: 07/16/2024 (Approximate), Expires: 07/16/2025NONH HealthcareComment on above:Expected: 07/16/2024 (Approximate), Expires: 07/16/2025Start: 07-16-2024 End: 39-24-6386Pnecr of abuse panel - Urine by Screen methodRapid drug screen, urine Lab Routine , unspecified gestational age Encounter for supervision of normal first in first trimester Expected: 07/16/2024 (Approximate), Expires: 07/16/2025[facility] HealthcareComment on above:Expected: 07/16/2024 (Approximate), Expires: 07/16/2025Start: 07-10-2024 End: 16-72-1530UN Pelvis transvaginalUS OB transvaginal Imaging Routine Missed menses Expected: 07/10/2024, Expires: 10/09/2024[facility] Work Phone: comment on above:Expected: 07/10/2024, Expires: 10/09/2024Start: 02-21-2024 End: 30-20-4986Slaxoql encounter ywpxiklft02/06/2024 8:00 AM EST Office Visit [facility] [address] [place] [address] [place] [phone] Myron Marroquin, [address] [place] [address] N[facility] SWS ORTHOAOStart: 02-19-2024 End: 01-35-9416Ntwgtfb encounter wxdtuyldo09/04/2024 3:30 PM EST Office Visit [facility] CI FM [address] [facility] [address] [place] [address] Rosalie Payne MD [address] [facility] [address] [place] [address] (Fax) 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CMS/HCC); Chronic fatigue; Cigarette smoker; Non morbid obesity due to excess caloriesNOMS CI FM 100Comment on above: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CMS/HCC); Chronic fatigue; Cigarette smoker; Non morbid obesity due to excess caloriesStart: 02-19-2024 End: 49-89-2097Onqsvcn, randomInsulin, random Lab Routine Non morbid obesity due to excess calories Postural orthostatic tachycardia syndrome (POTS) Expected: 02/19/2024 (Approximate), Expires: 02/18/2025[facility] Work Phone: Comment on above:Expected: 02/19/2024 (Approximate), Expires: 02/18/2025Start: 01-17-2024 End: 36-94-8575asfcqxvfui80/01/2024 2:30 PM EDT Treatment [facility] PT [address] [place] [address] Pepe Kirby, PT [address] [place] [address] [facility] JESENIA PTStart: 01-14-2024 End: 50-91-2859eooybizovw37/29/2024 3:30 PM EDT Treatment [facility] PT [address] [place] [address] Nereyda Vieira, MAIL CARRIERS SUPERVISOR [address] [place] [address] NOMS FB PTStart: 01-10-2024 End: 48-58-1440zemimnonau03/25/2024 2:30 PM EDT Treatment [facility] FB PT [address] [place] [address] Pepe Kirby, PT [address] [place] [address] NOMS FB PTStart: 01-07-2024 End: 89-66-5992lqowbooxzs00/22/2024 3:30 PM EDT Treatment [facility] FB PT [address] [place] [address] Pepe Kirby, PT [address] [place] [address] N[facility] FB PTStart: 01-03-2024 End: 53-35-8030xxgicvdlfr40/18/2024 2:30 PM EDT Treatment [facility] FB PT [address] [place] [phone] Pepe Kirby, PT [address] [place] [address] NOMS FB PTStart: 12-31-2023 End: 14-44-0338jfrnkuyhub01/15/2024 3:30 PM EDT Treatment [facility] FB PT [address] [place] [address] Jennifer Dozier PTANOMS FB PTStart: 12-27-2023 End: 70-82-6959heteocdjnwVZJE FB PTComment on above:ArrivedStart: 12-24-2023 End: 76-14-6373nwzlkrbtbb03/08/2024 3:00 PM EDT Treatment [facility] FB PT [address] [place] [address] Nereyda Vieira, MAIL CARRIERS SUPERVISOR [address] [place] [address] NOMS FB PTStart: 12-17-2023 End: 79-60-2207sgwnfxqeoz46/01/2024 3:00 PM EDT Treatment [facility] FB PT [address] [place] [address] Pepe Kirby, PT [address] [place] [address] NOMS FB PTStart: 12-09-2023 End: 91-30-7626Teuyqpu encounter procedureNOMS SWS ORTHOAOComment on above: ArrivedStart: 12-03-2023 End: 32-97-5732bnrhyyegvu82/17/2024 3:30 PM EDT Treatment [facility] FB PT [address] [place] [address] Nereyda Vieira, MAIL CARRIERS SUPERVISOR [address] [place] [address] ArrivedNOMS FB PT Comment on above:ArrivedStart: 11-19-2023 End: 23-16-2398dsryrbuyzrCOJC FB PTComment on above:Acute pain of left knee (Primary Dx); Status post arthroscopic reconstruction of anterior cruciate ligament of left knee using quadricepstendon autograftStart: 64-45-4867Ahqornmot vaccination Influenza Vaccine (#1)[facility] HealthcareStart: 96-84-6263HlxzswgeuBarberton Citizens Hospitaltart: 05-07-2023 End: 31-21-5520Qdwldzn encounter claymquvi22/20/2024 11:10 AM EST Office Visit [facility] OB [address] [facility] [facility] [address] [place] [phone] Doc Thomas, DO [address] [facility] [place] [address] N[facility] BCP OBStart: 05-03-2023 End: 39-56-1534Vydyypg encounter qhizuadou41/16/2024 11:00 AM EST Office Visit [facility] [address] [facility] [address] [place] [address] Myron Marroquin, DO [address] [place] [address] NOM[facility] LEXIE ORTHOAOStart: 04-23-2023 End: 15-54-8028Zlrsfqc encounter kwgmahevs49/06/2024 8:00 AM EST Procedure Visit [facility] EXT DEP Myron Marroquin, DO [address] [place] [address] NOMS EXT DEPStart: 04-22-2023 End: 20-15-2944yzqfislgnp00/05/2024 2:30 PM EST Evaluation [facility] PT [address] [place] [phone] Pepe Kirby, PT [address] [place] [address] N[facility]S JESENIA PTStart: 48-03-1870Tqhrfgqpi vaccinationInfluenza Vaccine (#1)[facility] HealthcareStart: 17-03-6191EBmV/Tdap/Td vaccine (5 - Td or Tdap)DTaP/Tdap/Td vaccine (5 - Td or Tdap)[facility]: 24-73-6043Yeurbphhl vaccinationFlu vaccine (#1)[facility] HospitalStart: 56-10-7635Xcbkayjut for malignant neoplasm of cervixMiami Valley Hospital Health Start: 74-33-4459RWcF/Tdap/Td vaccine (1 - Tdap)DTaP/Tdap/Td vaccine (1 - Tdap) [facility] Work Phone: start: 25-62-1648Wrqtohvci for Chlamydia trachomatis Chlamydia screenMercy HealthStart: 07-18-3392XLZ screeningHIV screenMiami Valley Hospital Health Start: 76-06-3018Tsebcldig vaccine (2 of 2 - 2-dose childhood series)Varicella vaccine (2 of 2 - 2-dose childhood series)[facility] Hospitalart: 44-24-8017XWARR-19 Vaccine (1)COVID-19 Vaccine (1)[facility] Phone: start: 72-94-4737Rilanpyfeu ScreenDepression Screen [facility] Hospitalart: 97-68-3129JZB vaccine (1 - 2-dose series)HPV vaccine (1 - 2- dose series)[facility] Hospitalart: 36-28-0323BQOPJ-19 Vaccine (1)COVID-19 Vaccine (1)[facility] [address] Hospitalart: 87-74-1635Hsvnqshvn vaccine (1 of 2 - 2-dose childhood series)Varicella vaccine (1 of 2 - 2-dose childhood series)[facility] Phone: start: 44-94-5030Usquknlyj C screeningHepatitis C screenAdams County HospitalBacteria identified in Urine by CultureUrine culture Microbiology Routine Missed menses Ordered: 07/16/2024[facility] HealthcareComment on above:Ordered: 07/16/2024BC W Auto Differential panel - BloodCBC and differential Lab Routine Missed menses , unspecified gestational age Ordered: 07/16/2024[facility] HealthcareComment on above:Ordered: 07/16/2024HLAMYDIA TRACHOMATIS (GENITO/STI)CHLAMYDIA TRACHOMATIS (GENITO/STI) Lab Routine STD exposure Ordered: 10/28/2024[facility] HealthcareComment on above:Ordered: 10/28/2024 Cytology Cervical or vaginal smear or scraping studyPap Smear Pathology and Cytology Routine Well woman exam with routine gynecological exam Ordered: [facility] HealthcareComment on above:Ordered: 10/28/2024Hemoglobin A1c/Hemoglobin.total in BloodHemoglobin A1c Lab Routine Missed menses , unspecified gestational age Ordered: 07/16/2024[facility] HealthcareComment on above: Ordered: 07/16/2024Hepatitis B virus surface Ag [Presence] in Serum or Plasma by ImmunoassayHepatitis B surface antigen Lab Routine Missed menses , unspecified gestational age Ordered: 07/16/2024[facility] HealthcareComment on above: Ordered: 07/16/2024Hepatitis C virus Ab [Presence] in Serum or Plasma by ImmunoassayHepatitis C antibody Lab Routine Missed menses , unspecified gestational age Ordered: 07/16/2024[facility] HealthcareComment on above:Ordered: 07/16/2024HIV-1/HIV-2 antigen/antibody combination immunoassayHIV-1 and HIV-2 antibodies Lab Routine Missed menses , unspecified gestational age Ordered: 07/16/2024[facility] HealthcareComment on above:Ordered: 07/16/2024Neisseria gonorrhoeae DNA [Presence] in Unspecified specimen by QUEENIE with probe detection Neisseria gonorrhea DNA probe, direct Lab Routine STD exposure Ordered: 10/28/2024[facility] CenterComment on above:Ordered: 10/28/2024Patient Education Hiatal hernia Hemorrhoids Gastritis Know your [facility] Work Phone: Reagin Ab [Presence] in Serum by RPRRPR Lab Routine Missed menses , unspecified gestational age Ordered: 07/16/2024[facility] HealthcareComment on above:Ordered: 07/16/2024Rubella antibody, IgGRubella antibody, IgG Lab Routine Missed menses , unspecified gestational age Ordered: 07/16/2024[facility] CenterComment on above:Ordered: 07/16/2024 SURESWAB(R) ADVANCED VAGINITIS PLUS, TMASURESWAB(R) ADVANCED VAGINITIS PLUS, TMA Pathology and Cytology Routine STD exposure Ordered: 10/28/2024[facility] Healthcare Comment on above:Ordered: 10/28/2024 End: 05-57-2547Gslqkjqypuu [Units/volume] in Serum or PlasmaTSH Lab Routine 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CMS/HCC) j1ygiwd for 6 Occurrences starting 08/05/2024 until 08/05/2025[facility] Healthcare Work Phone: comment on above:c3kybxj for 6 Occurrences starting 08/05/2024 until 08/05/2025US Pelvis transvaginalUS OB transvaginal Imaging Routine Missed menses 07/16/2024 1:59 PM [facility] Immunizations Immunization DateImmunizationNotesCare XlfjthbkNnpghcvh23-18-7154gdxxsrnkz B vaccine, adult dosageKyle Lilo PT Work Phone: [facility] CenterGjbsyptqit91-28-1325lgdclcvmpndfp oligosaccharide (groups A, C, Y and W-135) diphtheria toxoid conjugate vaccine (MCV4O)Pepe Lilo PT Work Phone: [facility] CenterAaeyztmpej24-13-1566swciafhsu A vaccine, pediatric/adolescent dosage, 2 dose scheduleKyle Lilo PT Work Phone: [facility] CenterSffvvobwqr39-25-4983nxryixihf A vaccine, pediatric/adolescent dosage, 2 dose scheduleKyle Lilo PT Work Phone: [facility] CenterWpweqkjqnv16-58-2612guqvtme toxoid, reduced diphtheria toxoid, and acellular pertussis vaccine, adsorbedKyle Lilo PT Work Phone: [facility] CenterXqsmgyejfo58-80-4003qmhxcvjvv virus vaccineKyle Lilo PT Work Phone: [phone] [place], [place] [address]Ruzbpkpalq29-75-1719ekrkeivvsjq influenzae type b conjugate and Hepatitis B vaccineKyle Lilo PT Work Phone: [facility] CenterAdstdrjmzk66-93-1395oggicjuibze influenzae type b vaccine, HbOC conjugateKyle Lilo PT Work Phone: [facility] CenterCsjatmcsnb72-34-5138uytswtbec B vaccine, pediatric or pediatric/adolescent dosageKyle Lilo PT Work Phone: [facility] CenterEwwfszueii50-50-4740stigztt, mumps and rubella virus vaccineKyle Lilo PT Work Phone: [facility] CenterOkexxtsgpg20-66-2368wtbpqusexi vaccine, inactivatedKyle Lilo PT Work Phone: [facility] CenterHxnmjzitze11-50-3865MLnG-Rhzamponbur influenzae type b conjugate vaccineKyle Lilo PT Work Phone: [facility] CenterWygtgrxasi81-22-7689zswqayywxsor conjugate vaccine, 7 valentKyle Lilo PT Work Phone: [facility] Medical CenterLlqxmjdjem96-45-9947sittrfyjmb, tetanus toxoids and acellular pertussis vaccine, Haemophilus influenzae type b conjugate, and poliovirus vaccine, inactivated (RAjP-Rml-DGF)Pepe Kibry PT Work Phone: [facility] Medical CenterScydonzcvs24-79-2185awxtoealej, tetanus toxoids and acellular pertussis vaccine, Haemophilus influenzae type b conjugate, and poliovirus vaccine, inactivated (FNnV-Fyh-JPY)Pepe Kirby PT Work Phone: [facility] Medical CenterVqccwyhnaa62-10-7354adlwuiexr B vaccine, pediatric or pediatric/adolescent dosageKyle Lilo PT Work Phone: noJefferson Memorial HospitalOabcvvlazt98-56-4090gkkswwapr B vaccine, pediatric or pediatric/adolescent dosageKyle Lilo PT Work Phone: [facility] [place] [facility] Payers DatePayer CategoryPayerPolicy [id number] [place] Blue [id number] Unknown1.2.840.687651.1.13.693.2.7.3.460[id number] 1.2.840.383213.1.13.239.2.7.3.019727.23913-16-3179[employer] Insurance [id number] 2.16.840.1.287656.3.579.2. [id number] 2.16.840.1.194347.3.57[id number] 2.16.840.1.070708.3.57[id number] 2.16.840.1.224102.3.57[id number] 2.16.840.1.741213.3.57[id number] 2.840.1.903300.3.57[id number] 2.840.1.802558.3.57[id number] 2.840.1.891926.3.57[id number] 2.840.1.509693.3.57[id number] 2.840.1.735229.3.57[id number] 2.0.1.465051.3.57[id number] 2.840.1.476157.3.57[id number] 2.840.1.583474.3.57[id number] 2.840.1.331663.3.57[id number] 2.840.1.040399.3.57[id number] 2.840.1.361707.3.57[id number] 2.840.1.021770.3.57[id number] 2.0.1.046055.3.57[id number] 2.840.1.531096.3.57[id number] 2.0.1.278811.3.579.[id number] 2.0.1.967914.19 [id number] [facility] [id number] [id number] 2.0.1.745096.3.579.2.531 Social History DateTypeDetailFacilityStart: 09-19-2020 End: 83-26-8492Pnclqkk smoking status NHISNever smokerMiami Valley Hospital [employer] Work Phone: start: 09-19-2020 End: 45-03-2688Prxwqba use and exposureNever [facility] World[employer]kStart: 2000 Sex Assigned At BirthNot on [facility] [employer] Work Phone: exposure to SARS-CoV-2 (event)Not [facility] [employer] Start: 12-14-2020 End: 36-54-2672Cfqjkpl intakeCurrent drinker of alcohol (finding)[facility] [employer] Work Phone: start: 56-13-9344Yupusjm CommentRareMselect medical specialty hospital - [facility] [employer] Work Phone: start: 12-11-2022 End: 00-01-6827Kre [facility] At [facility] HospitalTobaccoCurrent vaping or e-cigarette use Smokeless Tobacco Use:. VapingOhiohealthTobacco smoking statusNo Smoking Status EnteredDiley Ridge Medical Centertart: 02-09-2023 End: 46-87-8797Rtybswh smoking status NHISOccasional tobacco smokerNONH HealthcareStart: 04-15-2023 End: 01-61-5337Doglumz intakeEx-drinker (finding)[facility] HealthcareStart: 12-11-2022 End: 26-97-7979Fslplkk of Social functionNOMS HealthcareWithin the last year, have you been afraid of your partner or ex-partner?NoNOMS HealthcareAre you now , , , , never or living with a partner? MarriedNOMS HealthcareHow often to you have a drink containing alcohol?2-4 times a monthNOMS HealthcareHow many standard drinks containing alcohol do you have on a typical day?1 or 2NOMS HealthcareHow often do you have 6 or more drinks on 1 occasion?NeverNOMS HealthcareHow hard is it for you to pay for the very basics like food, housing, medical care, and heatingSomewhat hardNOMS HealthcareDo you feel stress - tense, restless, nervous, or anxious, or unable to sleep at night because yourmind is troubled all the time - these days [OSQ]Only a littleNOMS Healthcare(I/We) worried whether (my/our) food would run out before (I/we) got money to buy more.Never trueNONH HealthcareStart: 73-30-4628Kq the past 12 months, has lack of transportation kept you from medical appointments or from getting medications?NoNOMS HealthcareStart: 47-21-1326Xfpndeuys48MSGB Healthcare Start: 93-83-8722Mtdzktd Comment2-4 drinks per weekNONH HealthcareStart: 14-08-1195Mel Assigned At BirthFemalMoab Regional Hospital HealthcareStart: 44-52-9794Bsvsay identityIdentifies as female gender (finding)[facility] HealthcareStart: 07-25-2023 End: 18-20-1391Hyxjqob smoking status NHISSmoker (finding)[facility] HospitalHistory of tobacco useCigarette SmokerNONH HealthcareStart: 30-68-1911SmwgyerrxJDCH Healthcare Goals DatePatient GoalDesired Activity/State Functional Status WzufMdiorrgiqkWapcqzCqdsulyp98-68-8757Okbqmcgqfh StatusNoOhiohealth Clinical Notes 04-07-2021 to 12-23-2024 Note Date & CszwMbwnXlclhplo21-57-9832 History of Present illness Narrative* Luna Steen NP - 12/23/2024 2:00 PM EDT Reason for Appointment: Patient ID: Aleta Castro [...] Cigarette smoker 12/10/2022 Cyst of ovary 12/10/2022 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 Exam conducted with a cytogenetics technologist present. Vitals: Estimated body mass index is 29.42 kg/m as calculated from the following: Height as of 02/26/24: 5' 4 . Weight as of this encounter: 171 lb 6.4 oz. BP: 110/70 Patient's last menstrual period was 05/16/2024. ASSESSMENT & PLAN ICD-10-CM 1. Third trimester ([facility]) Z34.93 2. 31 weeks gestation [facility] Z3A.31 POCT urinalysis dipstick manually [...] Luna Steen NP on behalf of: Luna tSeen NP documented in this encounterMer[facility] Hospital South, 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 Exam conducted with a cytogenetics technologist present. Vitals: Estimated body mass index is 28.84 kg/m as calculated from the following: Height as of 02/26/24: 5' 4 . Weight as of this encounter: 168 lb. BP: 110/74 Patient's last menstrual period was 05/16/2024. ASSESSMENT & PLAN ICD-10-CM 1. Third trimester ([facility]) Z34.93 POCT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 Rosalie Payne MD [address] [place] [address] [facility] - [facility]07/24/22 Team Status: Active Member Role Status Dates Rosalie Payne MD Primary Care Provider Active Team Status: Inactive Member Role Status Dates Rosalie Payne MD Primary Care Provider Active Start: July 25, 2023 End: July 24nelly Espinosa DOAttending ProviderActiveStart: July 25, 2023 End: July 25, 2023 Team Status: Inactive Member Role Status Dates Rosalie Payne MD Primary Care Provider Active Start: September 02, 2023 End: September 01atherine L Ly , DOAttending ProviderActiveStart: September 02, 2023 End: September 02, 2023 Team Status: Active Member Role Status Dates Rosalie Payne MD Primary Care Provider Active Start: September 02, 2023 Marcelle Espinosa , DOAttending Provider, Other ProviderActiveStart: September 02, 2023 Team MemberRelationshipSpecialtyStart DateEnd Date Rosalie Payne MD [address] [facility] [place] [address] (Fax) PCP - GeneralFamily Medicine07/24/22Team MemberRelationshipSpecialtyStart DateEnd Date Rosalie Payne MD [address] [place] [address] (Fax) PCP - GeneralFamily Medicine07/24/22Team MemberRelationshipSpecialtyStart DateEnd Date Rosalie Payne MD [address] [place] [address] (Fax) PCP - GeneralFamily Medicine07/24/22Team MemberRelationshipSpecialtyStart DateEnd Date Rosalie Payne MD [address] [facility] [place] [address] (Fax) PCP - GeneralFamily Medicine07/24/22Team MemberRelationshipSpecialtyStart DateEnd Date Rosalie Payne MD [address] [place] [address] (Fax) PCP - GeneralFamily Medicine07/24/22Team MemberRelationshipSpecialtyStart DateEnd Date Rosalie Payne MD [address] [place] [address] (Fax) PCP - GeneralFamily Medicine07/24/22Team MemberRelationshipSpecialtyStart DateEnd Date Rosalie Payne MD [address] [place] [address] (Fax) PCP - GeneralFamily Medicine07/24/22Team MemberRelationshipSpecialtyStart DateEnd Date Rosalie Payne MD [address] [place] [address] (Fax) PCP - GeneralFamily Medicine07/24/22Team MemberRelationshipSpecialtyStart DateEnd Date Rosalie Payne MD [address] [place] [address] (Fax) PCP - GeneralFamily Medicine07/24/22Team MemberRelationshipSpecialtyStart DateEnd Date Rosalie Payne MD [address] [place] [address] (Fax) PCP - GeneralFamily Medicine07/24/22Team MemberRelationshipSpecialtyStart DateEnd Date Rosalie Payne MD [address] [place] [address] (Fax) PCP - GeneralFamily Medicine07/24/22Team MemberRelationshipSpecialtyStart DateEnd Date Rosalie Payne MD [address] [place] [address] (Fax) PCP - GeneralFamily Medicine07/24/22 Rosalie Payne MD [address] [place] [address] (Fax) PCP - [place] [employer]06/16/20Team MemberRelationshipSpecialtyStart DateEnd Date Rosalie Payne MD [address] [place] [address] (Fax) PCP - GeneralFamily Medicine07/24/22 Rosalie Payne MD [address] [place] [address] (Fax) PCP - [place] [employer]06/16/20Team MemberRelationshipSpecialtyStart DateEnd Date Rosalie Payne MD [address] [place] [address] (Fax) PCP - GeneralFamily Medicine07/24/22 Rosalie Payne MD [address] [place] [address] (Fax) PCP - [place] [employer]06/16/20Team MemberRelationshipSpecialtyStart DateEnd Rosalie Payne MD [address] [place] [address] (Fax) PCP - Generalmi Medicine07/24/22 Rosalie Payne MD [address] [place] [address] (Fax) PCP - [place] [facility]06/16/20Team MemberRelationshipSpecialtyStart DateEnd Date Rosalie Payne MD [address] [place] [address] (Fax) PCP - GeneralFamily Medicine07/24/22 Rosalie Payne MD [address] [place] [address] (Fax) PCP - [place] [facility]06/16/20Team MemberRelationshipSpecialtyStart DateEnd Date Rosalie Payne MD [address] [place] [address] (Fax) PCP - GeneralFamily Medicine07/24/22 Rosalie Payne MD [address] [place] [address] (Fax) PCP - [place] [facility]06/16/20Team MemberRelationshipSpecialtyStart DateEnd Date Rosalie Payne MD [address] [place] [address] (Fax) [facility] - [facility]/22 Rosalie Payne MD [address] [place] [address] (Fax) PCP - [place] [employer]06/16/20Team MemberRelationshipSpecialtyStart DateEnd Date Rosalie Payne MD [address] [place] [address] (Fax) [facility] - [facility]07/24/22 Rosalie Payne MD [address] [place] [address] (Fax) PCP - [place] [employer]06/16/20Team MemberRelationshipSpecialtyStart DateEnd Date Rosalie Payne MD [address] [place] [address] (Fax) PCP - Generalmi Medicine07/24/22 Rosalie Payne MD [address] [place] [address] (Fax) PCP - [place] [employer]06/16/20Team MemberRelationshipSpecialtyStart DateEnd Date Rosalie Payne MD [address] [place] [address] (Fax) PCP - [facility]07/24/22 Rosalie Payne MD [address] [place] [address] (Fax) PCP - [place] [employer]06/16/20Team MemberRelationshipSpecialtyStart DateEnd Date Rosalie Payne MD [address] [place] [address] (Fax) PCP - [facility]07/24/22 Rosalie Payne MD [address] [place] [address] (Fax) PCP - [place] [employer]06/16/20Te MemberRelationshipSpecialtyStart DateEnd Date Rosalie Payne MD [address] [place] [address] (Fax) PCP - [facility]07/24/22 Rosalie Payne MD [address] [facility] [place] [address] (Fax) PCP - [place] [employer]06/16/20 Goals (unrecognized section and content) Goals may [...] BE BASED ON THE PRIMARY CLINICAL RECORDS. [facility] [employer] [facility]. provides no warranty or guarantee of the accuracy or completeness of information in this document.
== END 2025-01-06 15:28 | disposition home or self-care (01) ==
LOC: FBCO 14:53 → FBC 14:55
PROVIDERS: PCP Family Medicine; Visit Provider Obstetrics & Gynecology
DX: O26.893 Other specified pregnancy related conditions, third trimester (principal); Z3A.33 33 weeks gestation of pregnancy
CPT/HCPCS: 59025

== ENCOUNTER 2025-01-11 14:55 | Outpatient (OUT) | payer BC, SELFPAY ==
--- OUTSIDE RECORDS SUMMARY | 2025-01-05 13:00 | XMS_ITS | Encounter Summary ---
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 Name Role Phone Danny Schuler MD Primary Care Provider [phone] Danny Schuler MD Unavailable [phone] Reason for Visit * ReasonCommentsRoutine Visit Encounter Details DateTypeDepartmentCare Team (Latest Contact Info)Jgfnlbojauj34/21/2025 1:00 PM EDTRoutine [facility] [address] [place] [phone] Doc Thomas DO [address] [place], [place] [id number] Third trimester ([facility]); 33 weeks gestation of ([facility]) Social History Tobacco UseTypesPacks/DayYears UsedDateSmoking Tobacco: Some [...] relatives?Once a week12/11/2022How often do you attend restoration or cheondoism services?More than 4 times per year12/11/2022o you belong to any clubs or organizations such as restoration groups, unions, fraBkam or athletic groups, or school groups?No12/11/2022How often [...] food, housing, medical care, and heating?Somewhat hard 12/11/2022[facility] [employer] [facility] [employer] - Occupational Stress QuestionnaireAnswerDate RecordedDo you feel stress - tense, restless, nervous, or anxious, or unable to sleep at night because yourmind is troubled all the time - these days?Only a aybjyp5612/11/2022Exercise Vital SignAnswerDate Recorded On average, how many [...] degree you have received?11th grade12/10/2022Estimated Date of TkscnazuYomejbzdVaz04/06/2025Based on last menstrual period of 05/16/2024Sex and Gender InformationValueDate RecordedSex Assigned at ZrcnkZytxud29/25/2023 10:10 AM EDTLegal FsgMfetxp78/15/2023 6:51 PM EDTGender CxnzsvwtBsjvjp26/25/2023 10:10 AM EDTSexual OrientationNot on filedocumented as of this encounter Last Filed Vital Signs Vital SignReadingTime TakenCommentsBlood Eevuwpwp973/6001/05/2025 1:04 PM EDT Pulse--Temperature--Respiratory Rate--Oxygen Saturation--Inhaled Oxygen Concentration--Phhoks90.2 kg (172 lb 6.4 oz)01/05/2025 1:04 PM [...] Left 2019 OVARIAN CYST REMOVAL Left 05/20/2020 [facility] William VAGINAL DELIVERY REVIEW OF [...] nursing note reviewed. Exam conducted with a offset label rewinder present. Vitals: Estimated body mass index is 29.59 kg/m?? as calculated from the following: Height as of 02/26/24: 5' 4 . Weight as of this encounter: 172 lb 6.4 oz. BP: 100/60 Patient's last menstrual period was 05/16/2024. Assessment/Plan ICD-10-CM 1. Third trimester ([facility]) Z34.93 2. 33 weeks gestation of ([facility]) Z3A.33 POCT urinalysis dipstick manually resulted [...] Plan of Treatment DateTypeDepartmentCare Team (Latest Contact Info)Lnqffvuhauk31/05/2025 1:50 PM ESTRoutine [facility] [address] [phone] Pretty Chaidez PA [address] [place] [address] documented as of this encounter Procedures Procedure NamePriorityDate/TimeAssociated DiagnosisCommentsPOCT URINALYSIS ZAZVBOVMWedqysc70/21/2025 1:04 PM EDT 33 weeks gestation of ([facility]) documented in this encounter Results * [...] this encounter Visit Diagnoses Diagnosis Third trimester ([facility]) state, incidental 33 weeks gestation of ([facility]) documented in this encounter Care Teams Team MemberRelationshipSpecialtyStart DateEnd Date Danny Schuler MD [address] [facility] [address] [place] [address] PCP - GeneralFamily Medicine07/24/22 Danny Schuler MD [address] [facility] [address] [place] [address] PCP - Ziggy Richard06/16/20documented as of this encounter
--- NOTE | 2025-01-11 15:00 | US_ITS ---
[address] [address] Patient Name: ALETA ELLINGTON MRN: [id number] date: 2000 Sex: F Assigned Patient Location: [facility] Current Patient Location: Accession/Order Number: [id number] Exam Date: 01/11/2025 15:03 Report Date: 01/11/2025 21:15 At the request of: SINTIA MARIE DO Procedure: US OB BPP w non-stress Ultrasound biophysical profile INDICATION: Gabby's disease. COMPARISON: 01/02/2025 FINDINGS: LYNN 15.6 cm. 8/8 score biophysical profile. Fetus is cephalic position with heart rate 141 beats per minutes. US/US OB BPP w non-stress Impression: 8 out of 8 score biophysical profile. Impression dictated by: Deshaun Aguilar M.D. 01/11/2025 9:15 PM Dictation Location: [place] [address] Electronically authenticated by: [id number] Y Date: 01/11/2025 21:15
--- OUTSIDE RECORDS SUMMARY | 2025-01-11 15:05 | XMS_ITS | Encounter Summary ---
Author Organization [facility] Address [address] [place] [address] Care Team Providers Care Informatics Nurse Name Role Phone Danny Schuler MD Primary Care Provider [phone] Danny Schuler MD Unavailable [phone] Encounter Details DateTypeDepartmentCare Team (Latest Contact Info)Ubgznsohoag64/21/2025amboo flowsheet [facility] [place] [facility] [address] [place] [id number] Doc Thomas DO [address] [facility] [facility] [address] Brandyn [place], [facility] Social History Tobacco UseTypesPacks/DayYears UsedDateSmoking Tobacco: Some [...] week12/11/2022How often do you attend hinduism or baptist services?More than 4 times per year12/11/2022o you belong to any clubs or organizations such as hinduism groups, unions, fraternal or athletic groups, or [...] care, and heating?Somewhat hard 12/11/2022[facility] [place] [facility] - Occupational Stress QuestionnaireAnswerDate RecordedDo you feel stress - tense, restless, nervous, or anxious, or unable to sleep at night because yourmind is troubled all the time - these days?Only a pvkmfk0112/11/2022Exercise Vital SignAnswerDate Recorded On average, how many [...] degree you have received?11th grade12/10/2022Estimated Date of PaprwiueYdckoxexAfa78/06/2025Based on last menstrual period of 05/16/2024Sex and Gender InformationValueDate RecordedSex Assigned at KplcoLsotnb11/25/2023 10:10 AM EDTLegal FdeItobkx73/15/2023 6:51 PM EDTGender KijgmmruTerdgb72/25/2023 10:10 AM EDTSexual OrientationNot on filedocumented as of this encounter Plan of Treatment DateTypeDepartmentCare Team (Latest Contact Info)Agwhkvfakkm93/05/2025 1:50 PM ESTRoutine [facility] [place] [facility] [address] [place] [phone] Pretty Chaidez PA [address] [place] [address] documented as of this encounter Visit Diagnoses Not on filedocumented in this encounter Care Teams Team MemberRelationshipSpecialtyStart DateEnd Date Danny Schuler MD [address] [address] PCP - GeneralFamily Medicine07/24/22 Danny Schuler MD [address] [address] PCP - [place] [employer]06/16/20documented as of this encounter
--- OUTSIDE RECORDS SUMMARY | 2025-01-11 15:05 | XMS_ITS | Clinical Summary ---
Author Organization [facility] Healthcare Address [address] [place] [address] Care Team Providers Care Hostess Name Role Phone Danny Payne MD Primary Care Provider Danny Payne MD Unavailable [phone] Allergies Active AllergyReactionsCriticalityNoted PoprSdhaatjkRiuxduvuqpzbMcqcq27/05/2021 Other Reaction(s): hives CzkriTqhfMtp10/05/2021 Other Reaction(s): Unknown Kzhdpbfor07/25/2023 Other Reaction(s): body numbness Medications MedicationSigDispense QuantityRefillsLast FilledStart DateEnd DateStatus ondansetron (Zofran) 4 MG tablet Indications:Nausea and vomiting in ([facility])Take 1 tablet (4 mg) by mouth every 6 (six) hours if needed for nausea or vomiting for up to 30 doses Take 1 tablet by mouth every 6 hours as needed for nausea. 30 tablet 5Active ondansetron (Zofran) 4 MG tablet Indications:Nausea and vomiting in ([facility])Take 1 tablet (4 mg) by mouth every 6 (six) hours if needed for nausea or vomiting for up to 30 doses Take 1 tablet by mouth every 6 hours as needed for nausea. 30 tablet Discontinued(Reorder) Active Problems ProblemNoted DateDiagnosed DateAbnormal bleeding in menstrual cycle02/19/2024 Status post arthroscopic reconstruction of anterior cruciate ligament of left knee using quadricepstendon tpafrpoff38/23/2024cute pain of left knee04/22/2023 Chronic gsmkmir5712/10/2022igarette xosvvk6412/10/2022yst of ovary12/10/2022 Gabby's qwccwvd9012/10/2022Hypotension determined by wemcisqjhmh79/25/2023 Juvenile osteochondrosis of tibial mnkklmyjeg62/25/2023Non morbid obesity due to excess uyojtgxs14/25/2023ostural orthostatic tachycardia syndrome (POTS) 12/10/2022Subclinical akvggqzmppnakx08/25/2023Estimated Date of Delivery LeysbgxzEcq13/06/2025Based on last menstrual period of 05/16/2024 Resolved Problems ProblemNoted DateDiagnosed DateResolved DateOverweight (BMI 25.0-29.9)12/10/2022 02/19/2024 Encounters DateTypeDepartmentCare RtfmWvnuxtidipk61/21/2025 1:00 [place] [address] Sintia Thomas, Third trimester ([facility]); 33 weeks gestation of ([facility])01/05/2025[place] [address] Sintia Thomas DO 01/02/2025linisync Result Encounter NOMS External Department Unsolicited Provider, Generic External Data 12/26/2024linisync Result Encounter NOMS External Department Unsolicited Provider, Generic External Data 12/26/2024linisync Result Encounter NOMS External Department Unsolicited Provider, Generic External Data 12/26/2024linisync Result Encounter NOMS External Department Unsolicited Sintia Thomas DO 12/23/2024 2:00 [place] [address] Jessica Steen, [place] Third trimester ([facility]); 31 weeks gestation of ([facility])12/23/2024Refill [place] [address] [place] [phone] Azalea Schmitz MA Nausea and vomiting in ([facility])12/23/2024amboo flowsheet [facility] [address] [place] [address] [place] [phone] Jessica Steen NP 12/09/2024 2:00 PM EDTRoutine [facility] [place] [facility] [address] [place] [phone] Sintia Thomas, Third trimester ([facility]); 29 weeks gestation of ([facility]); Yeast puspheznj33/24/2025amboo flowsheet [facility] [address] [place] [address] [place] [address] Sintia Thomas, 12/01/2024Telephone [facility] [address] [place] [address] [place] [address] Azalea Schmitz MA 11/27/2024bstract [facility] [place] [facility] [address] [place] [address] [place] [address] Sintia Thomas, 11/25/2024 1:50 PM EDTRoutine [facility] [address] [place] [address] [place] [address] Jessica Steen NP Second trimester ([facility]); 27 weeks gestation of ([facility]); Gabby's ergequz1311/25/2024amboo flowsheet [facility] [place] [facility] [address] [place] [address] Jessica Steen NP 11/24/2024linisync Result Encounter NOMS External Department Unsolicited Provider, Generic External Data 11/19/2024Telephone [facility] [place] [facility] [address] [place] [address] Janet Narayanan [place] 5Clinisync Result Encounter NOMS External Department Unsolicited Provider, Generic External Data 11/06/2024Orders Only [facility] [place] [facility] [address] [place] [phone] Coretta Cardenas LPN 11/05/2024Telephone [facility] [address] [place] [address] Azalea Schmit[place] 11/04/2024Telephone [facility] [address] [place] [address] Azalea Schmitz [place] 11/03/2024linisync Result Encounter NOMS External Department Unsolicited Provider, Generic External Data 11/03/2024Telephone [facility] [place] [facility] [address] [place] [address] Azalea Schmitz [place] 10/28/2024 2:30 PM EDTRoutine [facility] [place] [address] [place] [address] Pretty Chaidez, PA Second trimester ([facility]); 23 weeks gestation of ([facility]); Diabetes mellitus screening; STD exposure; Well woman exam with routine gynecological exam; Heart hjmsrshkkftu80/13/2025linisync Result Encounter NOMS External Department Unsolicited Provider, Generic External Data 10/28/2024External Result Encounter NOMS External Department Unsolicited Jessica Steen NP 10/28/2024amboo flowsheet [facility] [place] [facility] [address] [place] [phone] Pretty Chaidez PA from Last 3 Months Immunizations ImmunizationAdministration DatesNext DueDTaP / HiB / IPV1999,1999 DTaP / Hib03/26/2000Hep A, ped/adol, 2 dose03/31/2012,08/31/2011Hep B, Adolescent or Tkqjbdouc60/27/2001,1999,1999Hep B, adult11/12/2016Hib (HbOC)09/11/2000Hib / Hep B009/11/2000IPV09/11/2000MMR09/11/2000Meningococcal TMC4V8111/12/2016Pneumococcal Conjugate PCV 701/11/20003984Ypcf86/15/2012Varicella 08/31/2011 Family History Medical HistoryRelationNameCommentsNo Known ProblemsBrotherHyperlipidemia [...] sexual activity by your part ner or ex-partner?12/11/2022Social Connection and Isolation PanelAnswerDate RecordedIn a typical week, how many times do you talk on the phone with family, friends, or neighbors?Three times a week12/11/2022How often do you get together with friends or relatives?Once a week12/11/2022How often do you attend amish or evangelical services?More than 4 times per year12/11/2022o you belong to any clubs or organizations such as amish groups, unions, fraternal or athletic carmen ups, or school groups?No12/11/2022How often do you attend meetings of the clubs or organizations you belong to?Never12/11/2022re you , , , , never , or living with a partner?Mscjrxp7512/11/2022 AUDIT-CAnswerDate RecordedQ1: How often do you have [...] food, housing, medical care, and heating?Somewhat hard12/11/2022 [employer] - Occupational Stress Questionnaire AnswerDate RecordedDo you feel stress - tense, restless, nervous, or anxious, or unable to sleep at night because yourmind is troubled all the time - these days? Only a atnimk6012/11/2022Exercise Vital SignAnswerDate RecordedOn average, how many days [...] steady place to sleep or slept in [facility] (including now)?No12/11/2022EducationAnswerDate RecordedWhat is the highest level of school you have completed or the highest degree you have received?11th grade12/10/2022Estimated Date of DeliveryCommentsYes 02/20/2025ased on last menstrual period of 05/16/2024Sex and Gender Information ValueDate RecordedSex Assigned at LssktOvgryt42/25/2023 10:10 AM EDTLegal Sex Ouorji0005/30/2022 6:51 PM EDTGender RausjdooVuulap12/25/2023 10:10 AM EDTSexual OrientationNot on file Last Filed Vital Signs Vital SignReadingTime TakenCommentsBlood Femxtjoz355/6010 1:04 PM EDT Cyxmb816902/19/2024 3:26 PM FMOSidgshenham42.4 ??C (97.5 ??F)05/03/2023 11:22 AM ESTRespiratory Rate--Oxygen Xeiwtxbjtw56%02/19/2024 3:26 PM ESTInhaled Oxygen Concentration--Wfurgh11.2 kg (172 lb 6.4 oz)01/05/2025 1:04 PM AQVZnponi702.6 cm (5' 4 )02/26/2024 3:41 PM ESTBody Mass Index29.5902/26/2024 3:41 PM EST Plan of Treatment DateTypeDepartmentCare Team (Latest Contact Info)Fvzojcqmeij90/05/2025 1:50 PM ESTRoutine [facility] [address] [place] [address] Pretty Chaidez PA [address] [place] [address] Health MaintenanceDue DateLast DoneCommentsInfluenza Vaccine (#1)09/14/2025 Postponed from 11/16/2024 (Patient Refused) Procedures Procedure NamePriorityDate/TimeAssociated DiagnosisCommentsPOCT URINALYSIS CYURLMEHUqkayyx29/21/2025 1:04 PM EDT 33 weeks gestation of ([facility]) US OB BPP W NON-MWPSZZ6701/02/2025 3:02 PM EDT US OB DTYANI0112/26/2024 11:31 AM EDT US OB BPP W NON-WQBRRK1312/26/2024 11:19 AM EDT ALL THYROID STIM DKAZTWMStjddtt45/11/2025 8:13 AM EDT POCT URINALYSIS ZQBMYZEUFkseekc01/08/2025 2:01 PM EDT 31 weeks gestation of ([facility]) POCT URINALYSIS JKGCASGDDsdrxta93/24/2025 2:14 PM EDT Third trimester ([facility]) POCT URINALYSIS JUIMNAILFhbqpyz47/10/2025 3:33 PM EDT Second trimester ([facility]) CA ECHO DOPPLER AZIWFGYX92/09/2025 4:39 PM EDT ECG 12-LEAD11/12/2024 12:06 PM EDT ALL THYROID STIM RETFCCLIixnuzi28/19/2025 4:00 PM EDT GLUCOSE 1 KQWRQzyrjey88/19/2025 4:00 PM EDT ALL CBC WITH AUTO GASAQrjaduu99/19/2025 4:00 PM EDT RECURRENT VAGINITIS (HTRX)Ydodrgs2910/28/2024 4:48 PM EDT POCT URINALYSIS EYWIPALKGgnwpvr22/13/2025 2:43 PM EDT Second trimester ([facility]) IGP,APTIMA HPV,AGE VIWCTkymujw24/13/2025 2:25 PM EDT PAP NFQMBMhizxrs91/13/2025 12:00 AM EDTfrom Last 3 Months Results * (ABNORMAL) POCT [...] / Laterality Collection Method / VolumeCollection TimeReceived YmlrIcxxh29/21/2025 1:04 PM EDT Narrative Authorizing ProviderResult TypeResult StatusCorey William DOPOINT OF CARE TEST ENTER/EDIT ORDERABLESFinal Result * US OB BPP W NON-STRESS (01/02/2025 3:02 PM EDT) Only the most recent of2 resultswithin the time period is included. Anatomical RegionLateralityModalityOtherSpecimen (Source)Anatomical Location / LateralityCollection Method / VolumeCollection TimeReceived Time01/02/2025 3:02 PM EDT Narrative 01/02/2025 3:05 PM EDT [facility] ?[address] ? [place] [address] ? Ultrasound Report ? Signed ? Patient: RAKEL,ALETA N ?MR#: [id number] ?? : 2000 ?Acct:[id number] ?? Age/Sex: 24 / F ?ADM Date: 01/02/25 ?? Loc: US ? Attending Dr: Sintia Thomas D.O. ? Ordering Physician: Sintia Thomas D.O. ?? Date of Service: 01/02/25 ?? Procedure(s): US OB BPP w non-stress ?? Accession Number(s): [id number] ? cc: Sintia Thomas D.O.; DANNY PAYNE ? [facility] ? [address] ? [place] [address] ? Patient Name: ?? ALETA CASTRO ? MRN: [facility]:[id number] ? date: 2000 ?Sex: F ?? Assigned Patient Location: [facility] ?? Current Patient Location: ? Accession/Order Number: [id number] ?? Exam Date: 01/02/2025 ??09:00 ?Report Date: [...] w non-stress ?? IMPRESSION: ? Biophysical profile: 8 ? Impression dictated by: Emmanuel Dalton M.D. ??01/02/2025 3:02 PM ? Dictation Location: RADIO-PC-17 ? Electronically authenticated by: [id number] ??Y ?? Date: 01/02/2025 ??15:02 ? Dictated By: ?Emmanuel Dalton M.D. ? Signed By: ?01/02/25 1505 ? DD/ 1502 ? TD/TT: ? [employer]: Procedure Note Radiology, Radiologist, - 01/02/2025 [place] [address] Ultrasound Report Signed Patient: ALETA CASTRO NMR#: [id number] : 2000Acct:[id number] Age/Sex: 24 / FADM Date: 01/02/25 Loc: US Attending Dr: Sintia Thomas D.O. Ordering Physician: Sintia Thomas D.O. Date of Service: 01/02/25 Procedure(s): US OB BPP w non-stress Accession Number(s): [id number] cc: Sintia Thomas D.O.; DANNY PAYNE The [address] [address] Patient Name: ALETA CASTRO MRN: [id number] date: 2000 Sex: F Assigned Patient Location: [facility] Current Patient Location: Accession/Order Number: [id number] Exam Date: 01/02/2025 09:00 Report Date: 01/02/2025 [...] Dalton M.D. 01/02/2025 3:02 PM Dictation Location: [place] [address] Electronically authenticated by: [id number] Y Date: 5:02 Dictated By: Emmanuel Dalton M.D. Signed By:01/02/25 1505 DD/ 1502 TD/TT: [employer]: Authorizing ProviderResult TypeResult StatusGeneric External Data Provider CLINISYNC IMAGINGFinal Result * US OB GROWTH (12/26/2024 11:31 AM EDT)Anatomical RegionLateralityModalityOther Specimen (Source)Anatomical Location / LateralityCollection Method / Volume Collection TimeReceived Time12/26/2024 11:31 AM EDT Narrative 12/26/2024 11:33 AM EDT [facility] ?[address] ? [place] [address] ? Ultrasound Report ? Signed ? Patient: ALETA CASTRO ?MR#: [id number] ?? : 2000 ?Acct:[id number] ?? Age/Sex: 24 / F ?ADM Date: 12/26/24 ?? Loc: US ? Attending Dr: Sintia Thomas D.O. ? Ordering Physician: Sintia Thomas D.O. ?? Date of Service: 12/26/24 ?? Procedure(s): US OB growth ?? Accession Number(s): [id number] ? cc: Sintia Thomas D.O.; DANNY PAYNE ? [facility] ? [address] ? [place] [address] ? Patient Name: ?? ALETA CASTRO ? MRN: [id number] ? date: 2000 ?Sex: F ?? Assigned Patient Location: US ?? Current Patient Location: ? Accession/Order Number: [id number] ?? Exam Date: 12/26/2024 ??09:00 ?Report Date: [...] 52 bpm. ? motion documented by the handbag parts cutter.. ? Estimated weight 2093 g 71.4%. ? [...] Dictation Location: RADIO-PC-29 ? Electronically authenticated by: [id number] ??Y ?? Date: 12/26/2024 ??11:31 ? Dictated By: ?Deshaun Aguilar M.D. ? Signed By: ?10/11/25 1133 ? DD/ 1131 ? TD/TT: ? [employer]: Procedure Note Radiology, Radiologist, - 12/26/2024 [place] [address] Ultrasound Report Signed Patient: ALETA CASTRO NMR#: [id number] : 2000Acct:[id number] Age/Sex: 24 / FADM Date: 12/26/24 Loc: US Attending Dr: Sintia Thomas D.O. Ordering Physician: Sintia Thomas D.O. Date of Service: 12/26/24 Procedure(s): US OB growth Accession Number(s): [id number] cc: Sintia Thomas D.O.; DANNY PAYNE The [address] [address] Patient Name: ALETA CASTRO MRN: [id number] date: 2000 Sex: F Assigned Patient Location: US Current Patient Location: Accession/Order Number: [id number] Exam Date: 12/26/2024 09:00 Report Date: 12/26/2024 11:31 At the request of: SINTIA THOMAS DO Procedure: US OB growth Obstetric ultrasound for growth INDICATION: Gabby's disease FINDINGS: Single live anterior cephalic presentationlongitudinal lie. Amniotic fluid index 12.4 cm between the gestational age fifth jbo28nt percentile. Largest pocket of fluid 5.1 cm. heart rate 1 52 bpm. motion documented by the handbag parts cutter.. Estimated weight 2093 g 71.4%. Gestation age 32 weeks and 0 days. Biparietal diameter 7.93 m. Head circumference 30.7 cm. Otherwise the 10.6 cm. Abdominal circumference 28.9 cm. Femur length 6.4 cm. US/US OB growth IMPRESSION: Single live intrauterine of approximately 30 weeks Impression dictated by: Deshaun Aguilar M.D. 12/26/2024 11:31 AM Dictation Location: [place] [address] Electronically authenticated by: [id number] Y Date: 1:31 Dictated By: Deshaun Aguilar M.D. Signed By:12/26/24 1133 DD/ 1131 TD/TT: [employer]: Authorizing ProviderResult TypeResult StatusGeneric External Data Provider [...] Data Provider CLINISYNCFinal ResultPerforming OrganizationAddressCity/State/ZIP CodePhone Number [facility] * CA ECHO DOPPLER COMPLETE (11/24/2024 4:39 PM EDT)Anatomical RegionLaterality ModalityOtherSpecimen (Source)Anatomical Location / LateralityCollection Method / VolumeCollection TimeReceived Time11/24/2024 4:39 PM EDT Narrative 11/24/2024 4:40 PM EDT [facility] ?[address] ? [place] [address] ? Cardiology Report ? Signed ? Patient: RAKEL,ALETA N ?MR#: [id number] ?? : 2000 ?Acct:[id number] ?? Age/Sex: 24 / F ?ADM Date: 11/12/24 ?? Loc: CARD ? Attending Dr: Jessica Steen ? Ordering Physician: Jessica Steen ?? Date of Service: 11/12/24 ?? Procedure(s): CA echo doppler complete ?? Accession Number(s): [id number] ? cc: Jessica Steen; DANNY PAYNE ? Patient Name: ? SUMMER RAKEL ? MR#: [id number] ? : 2000 ? Exam Date: 11/12/2024 [...] 1640 ? DD/ 1639 ? TD/TT: ? [employer]: Procedure Note Radiology, Radiologist, MD - 09/09/2025 [place] [address] Cardiology Report Signed Patient: ALETA CASTRO NMR#: [id number] : 2000Acct:[id number] Age/Sex: 24 / FADM Date: 11/12/24 Loc: CARD Attending Dr: Jessica Steen Ordering Physician: Jessica Steen Date of Service: 11/12/24 Procedure(s): CA echo doppler complete Accession Number(s): [id number] cc: Jessica Steen; DANNY PAYNE Patient Name: ALETA CASTRO MR#: [id number] : 2000 Exam Date: 11/12/2024 Ordering Doctor: JESSICA STEEN [facility] ECHOCARDIOGRAM REPORT PROCEDURE: CA ECHO DOPPLER [...] M.D. Signed By:11/24/24 1640 DD/ 1639 TD/TT: [employer]: Authorizing ProviderResult TypeResult StatusGeneric External Data Provider CLINISYNC IMAGINGFinal Result * ECG 12-LEAD (11/12/2024 12:06 PM EDT)Anatomical RegionLateralityModalityOther Specimen (Source)Anatomical Location / LateralityCollection Method / Volume Collection TimeReceived Time11/12/2024 12:06 PM EDT Narrative 11/13/2024 1:34 PM EDT [facility] ?[address] ? [place] [id number] ? Electrocardiograph Report ? Signed ? Patient: ALETA CASTRO ?MR#: [id number] ?? : 2000 ?Acct:[id number] ?? Age/Sex: 24 / F ?ADM Date: 11/12/24 ?? Loc: CARD ? Attending Dr: Jessica Steen ? Ordering Physician: Jessica Steen ?? Date of Service: 11/12/24 ?? Procedure(s): ECG 12 lead ?? Accession Number(s): [id number] ? cc: ?[facility] ? Test Date: ?2024-11-12 ?? Pat Name: ? SUMMER RAKEL ?Department: ? Room: ? - ?? Gender: ? Female ? Manifest/Order Organizer Print Orders: ? : ?2000 ? Requested By: JESSICA STEEN ?? Order Number: [id number] ?Reading MD: ?? Bibi Singh ? Measurements ?? Intervals ?Elim ? Rate: ? 79 ? P: ?42 ?? OH: ? 158 ?QRS: ?81 ?? QRSD: ? 90 ? T: ?41 ?? QT: ? 353 ? QTc: ?405 ? Interpretive Statements ?? SINUS RHYTHM ?? Normal EKG ?? No previous ECG available for comparison ?? Electronically Signed On 11-13-2024 13:34:21 EDT by Samar Samantha ? Dictated By: ?Bibi Singh M.D. ? Signed By: ?11/13/24 1334 ?11/13/24 1334 ? DD/ 1206 ? TD/TT: ? [employer]: Procedure Note Radiology, Radiologist, - 11/13/2024 [place] [address] Electrocardiograph Report Signed Patient: ALETA CASTRO NMR#: [id number] : 2000Acct:[id number] Age/Sex: 24 / FADM Date: 11/12/24 Loc: CARD Attending Dr: Jessica Steen Ordering Physician: Jessica Steen Date of Service: 11/12/24 Procedure(s): ECG 12 lead Accession Number(s): [id number] cc: [facility] Test Date: 2024-11-12 Pat Name: ALETA CASTRO Department: Room: - Gender: Female Manifest/Order Organizer Print Orders: : 2000 Requested By: JESSICA STEEN Order Number: [id number] Reading MD: Bibi Singh Measurements Intervals Elim Rate: 79 P: 42 OH: 158 QRS: 81 QRSD: 90 T: 41 QT: 353 QTc: 405 Interpretive Statements SINUS RHYTHM Normal EKG No previous ECG available for comparison Electronically Signed On 11-13-2024 13:34:21 EDT by Bibi Singh Dictated By: Bibi Singh M.D. Signed By:11/13/24 1334 11/13/24 1334 DD/ 1206 TD/TT: [employer]: Authorizing ProviderResult TypeResult StatusGeneric External Data Provider CLINISYAK IMAGINGFinal Result * GLUCOSE 1 HOUR (11/03/2024 4:00 PM EDT)ComponentValueRef RangeTest Method Analysis TimePerformed AtPathologist SignatureGLUCOSE 1 FPMT211<130 mg/dLTBH Specimen (Source)Anatomical Location / LateralityCollection Method / Volume Collection TimeReceived Time11/03/2024 4:00 PM EDT11/03/2024 4:01 PM EDT Narrative CLINISYNC - 11/03/2024 6:33 PM EDT Authorizing ProviderResult TypeResult StatusJessica Steen NPLAB BLOOD ORDERABLESFinal ResultPerforming OrganizationAddressCity/State/ZIP CodePhone Number [facility] * (ABNORMAL) ALL CBC WITH AUTO DIFF (11/03/2024 4:00 PM EDT)ComponentValueRef RangeTest MethodAnalysis TimePerformed AtPathologist SignatureTBH WBC6.64.0 - 11.0 10 3/uLTBHTBH RBC3.34(L)4.20 - 5.40 10 6/uLTBHTBH HGB10.8(L)12.0 - 16.0 g/dLTBHTBH HCT31.2(L)36.0 - 48.0 %TBHTBH MCV93.481.0 - 99.0 fLTBHTBH MCH32.3 26.7 - 34.0 pgTBHTBH MCHC34.629.9 - 35.2 g/dLTBHTBH RDW12.711.0 - 15.0 %TBHTBH LLW683638 - 450 10 3/uLTBHTBH MPV9.79.5 - 13.5 [...] 11/03/2024 4:26 PM EDT Authorizing ProviderResult TypeResult StatusKrselene Steen NPCLINISYNCFinal ResultPerforming OrganizationAddressCity/State/ZIP CodePhone Number CLINISYNC [facility] * RECURRENT VAGINITIS (HTRX) (10/28/2024 4:48 PM EDT)ComponentValueRef RangeTest MethodAnalysis TimePerformed AtPathologist SignatureATOPOBIUM YURBBIO930.961 - 24.689 ppm10/30/2024 7:27 AM EDTHealthTrackRx at [facility] HealthATOPOBIUM VAGINAENot Yqjegpdh87.961 - 24.689 ppm10/30/2024 7:27 AM EDTHealthTrackRx at LabWab[facility] HospitalBVAB 2,3 (BACTERIAL VAGINOSIS ASSOCIATED BACTERIA 2, 3); MOBILUNCUS OZY223.961 - 24.689 ppm10/30/2024 7:27 AM EDTHealthTrackRx at [facility] HealthBVAB 2,3 (BACTERIAL VAGINOSIS ASSOCIATED BACTERIA 2, 3); MOBILUNCUS SPPNot Qjrohmsu95.961 - 24.689 ppm10/30/2024 7:27 AM EDTHealthTrackRx at [facility] HealthCANDIDA ALBICANS, PARAPSILOSIS, ICCQEUAUKH172.000 - 30.347 ppm10/30/2024 7:27 AM EDT [facility] HealthCANDIDA ALBICANS, PARAPSILOSIS, TROPICALISNot Detected 23.000 - 30.347 ppm10/30/2024 7:27 AM EDTHealthTrackRx at [facility] HealthCANDIDA XOQBEUIM619.000 - 31.618 ppm10/30/2024 7:27 AM EDTHealthTrackRx at [facility] RICKEY GLABRATANot Nysaclsd15.000 - 31.618 ppm10/30/2024 7:27 AM EDT [facility] HealthCANDIDA POMMZO926.000 - 30.873 ppm10/30/2024 7:27 AM EDTHealthTrackRx at [facility] HealthCANDIDA KRUSEINot Jukwystw43.000 - 30.873 ppm 10/30/2024 7:27 AM EDTHealthTrackRx at [facility] SystemsPortCHLAMYDIA OPQJWUVWDVY954.000 - 31.586 ppm10/30/2024 7:27 AM EDTHealthTrackRx at [facility] HealthCHLAMYDIA TRACHOMATIS Not Xbikmnuk55.000 - 31.586 ppm10/30/2024 7:27 AM EDTHealthTrackRx at [facility] GARDNERELLA IJDXOHCRQ571.961 - 24.689 ppm10/30/2024 7:27 AM EDTHealthTrackRx at [facility]al HealthGARDNERELLA VAGINALISNot Dijleetk23.961 - 24.689 ppm10/30/2024 7:27 AM EDTHealthTrackRx at [facility]al HealthMEGASPHAERA (TYPES 1, 2)019.961 - 24.689 ppm 10/30/2024 7:27 AM EDTHealthTrackRx at [facility]al HealthMEGASPHAERA (TYPES 1, 2)Not Zidnthot07.961 - 24.689 ppm10/30/2024 7:27 AM EDTHealthTrackRx at [facility] NEISSERIA PONJFNGEYUY640.000 - 32.587 ppm10/30/2024 7:27 AM EDTHealthTrackRx at [facility] HealthNEISSERIA GONORRHOEAENot Gnjiclfx59.000 - 32.587 ppm10/30/2024 7:27 AM EDTHealthTrackRx at [facility] HealthTRICHOMONAS SOIXFNXVR991.000 - 31.995 ppm 10/30/2024 7:27 AM EDTHealthTrackRx at [facility]al HealthTRICHOMONAS VAGINALISNot Prdalljy72.000 - 31.995 ppm10/30/2024 7:27 AM EDTHealthTrackRx at [facility] MYCOPLASMA NUSQPNAEOY514.961 - 24.689 ppm10/30/2024 7:27 AM EDTHealthTrackRx at [facility]al HealthMYCOPLASMA GENITALIUMNot Piyuyaox54.961 - 24.689 ppm10/30/2024 7:27 AM EDTHealthTrackRx at [facility] HealthSpecimen (Source)Anatomical Location / LateralityCollection Method / VolumeCollection TimeReceived TimeTissue 10/28/2024 4:48 PM EDT10/30/2024 2:18 AM EDT Narrative Authorizing ProviderResult TypeResult StatusKristina Enio NPLAB BLOOD ORDERABLESFinal ResultPerforming OrganizationAddressCity/State/ZIP CodePhone Number [facility] [address] [address] * IGP,APTIMA HPV,AGE GDLN (10/28/2024 2:25 PM EDT)ComponentValueRef RangeTest MethodAnalysis TimePerformed AtPathologist SignatureAGE GDLN ACOG TESTINGNote. TBHComment: ?? TESTS ? RESULT ??FLAG ??UNITS ?REF RANGE ??LAB ?? Clinician Provided Cytology Information ?? Source.............Endoc[employer]ix ?? No. of containers..01 ThinPrep Vial Age Algo ACOG Yaa... ??- ? 01 ?FLAG LEGEND: ?L-Low Normal,H-High Normal,LL-Alert Low,HH-Alert High <-Panic Low,>-Panic High,A-Abnormal,AA-Critical Abnormal Performed at: 01 =G ?[facility] ?? [address], [place] ??[phone] ?? Ludy Hector MD, IGP, RFX APTIMA HPV ASCUNote.TBHComment: ?? TESTS ? RESULT ??FLAG ??UNITS ?REF RANGE ??LAB DIAGNOSIS: ?02 ?? NEGATIVE FOR INTRAEPITHELIAL LESION OR MALIGNANCY. ?? THIS SPECIMEN WAS RESCREENED PART OF OUR OCCASIONAL CAREGIVER PROGRAM. Specimen adequacy: ?02 ?? Satisfactory for evaluation. No endocervical component is identified. Performed by: ? 02 ?? Brionna Mello Paper Sheeter (ASCP) QC reviewed by: ? 02 ?? Polina Simons, Paper Sheeter . ? 02 Note: ? Note ?02 [...] Low,>-Panic High,A-Abnormal,AA-Critical Abnormal Performed at: 02 WB ?[facility] ?? [address], [place] ??[address] ?? Ludy Hector MD, Performed at: ??=G - [facility] [address] ??[id number] Tanker Serviceman: Ludy Hector MD, Phone: ??[phone] Performed at: ??WB - [facility] [address], [place] ??[id number] Tanker Serviceman: Ludy Hector MD, Phone: ??[phone] Specimen (Source)Anatomical Location / LateralityCollection Method / [...] ORDERABLESFinal ResultPerforming OrganizationAddressCity/State/ZIP CodePhone Number EXTERNAL LAB from Last 3 Months Insurance Care Teams Team MemberRelationshipSpecialtyStart DateEnd Date Danny Payne MD [address] [place] [address] PCP - GeneralFamily Medicine07/24/22 Danny Payne MD [address] [place] [address] PCP - [facility]06/16/20
--- OUTSIDE RECORDS SUMMARY | 2025-01-11 15:05 | XMS_ITS | Encounter Summary ---
Author Organization [facility] Address [address] [place] [address] Care Team Providers Care Decorator Street And Building Name Role Phone Danny Payne MD Primary Care Provider [phone] Danny Payne MD Unavailable [phone] Encounter Details DateTypeDepartmentCare Team (Latest Contact Info)Mniqwrikxiz01/18/2025Clinisync Result Encounter [facility] Unsolicited Provider, [...] relatives?Once a week12/11/2022How often do you attend spiritism or yazdanism services?More than 4 times per year12/11/2022o you belong to any clubs or organizations such as spiritism groups, unions, fraternal [...] food, housing, medical care, and heating?Somewhat hard 12/11/2022[facility] [place] [facility] - Occupational Stress QuestionnaireAnswerDate RecordedDo you feel stress - tense, restless, nervous, or anxious, or unable to sleep at night because yourmind is troubled all the time - these days?Only a kaihsk1412/11/2022Exercise Vital SignAnswerDate Recorded On average, how many [...] degree you have received?11th grade12/10/2022Estimated Date of QxeaptnyUlghsxqaIjx68/06/2025Based on last menstrual period of 05/16/2024Sex and Gender InformationValueDate RecordedSex Assigned at QaaoaKcztmj93/25/2023 10:10 AM EDTLegal JexSunedf53/15/2023 6:51 PM EDTGender FsbzykicJhmukj92/25/2023 10:10 AM EDTSexual OrientationNot on filedocumented as of this encounter Plan of Treatment DateTypeDepartmentCare Team (Latest Contact Info)Nauyxfudxvl82/05/2025 1:50 PM ESTRoutine [facility] [address] [place] [id number] Pretty Chaidez PA [address] [place] [address] documented as of this encounter Procedures Procedure NamePriorityDate/TimeAssociated DiagnosisCommentsUS OB BPP W NON-NHVZPH8801/02/2025 3:02 PM EDT documented in this encounter Results * US OB BPP W NON-STRESS (01/02/2025 3:02 PM EDT)Anatomical Region LateralityModalityOtherSpecimen (Source)Anatomical Location / Laterality Collection Method / VolumeCollection TimeReceived Time01/02/2025 3:02 PM EDT Narrative 01/02/2025 3:05 PM EDT [facility] ?[address] ? [place] [address] ? Ultrasound Report ? Signed ? Patient: RAKEL,SUMMER N ?MR#: [id number] ?? : 2000 ?Acct:[id number] ?? Age/Sex: 24 / F ?ADM Date: /18/25 ?? Loc: US ? Attending Dr: Sintia Thomas D.O. ? Ordering Physician: Sintia Thomas D.O. ?? Date of Service: 01/02/25 ?? Procedure(s): US OB BPP w non-stress ?? Accession Number(s): [id number] ? cc: Sintia Thomas D.O.; DANNY PAYNE ? [facility] ? [address] ? [place] [address] ? Patient Name: ?? RACHEL CASRTO ? MRN: [facility]:[id number] ? date: 2000 ?Sex: F ?? Assigned Patient Location: [facility] ?? Current Patient Location: ? Accession/Order Number: [id number] ?? Exam Date: 01/02/2025 ??09:00 ?Report Date: [...] Dictation Location: RADIO-PC-17 ? Electronically authenticated by: [id number] ??Y ?? Date: 01/02/2025 ??15:02 ? Dictated By: ?Emmanuel Dalton M.D. ? Signed By: ?01/02/25 1505 ? DD/ 1502 ? TD/TT: ? Warehouse Administrator: Procedure Note Radiology, Radiologist, - 01/02/2025 [place] [address] Ultrasound Report Signed Patient: RACHEL CASTRO NMR#: [id number] : 2000Acct:[id number] Age/Sex: 24 FADM Date: 01/02/25 Loc: US Attending Dr: Sintia Thomas D.O. Ordering Physician: Sintia Thomas D.O. Date of Service: 01/02/25 Procedure(s): US OB BPP w non-stress Accession Number(s): [id number] cc: Sintia Thomas D.O.; DANNY PAYNE The [place] [address] Patient Name: RACHEL CASTRO MRN: [id number] date: 2000 Sex: F Assigned Patient Location: [facility] Current Patient Location: Accession/Order Number: [id number] Exam Date: 01/02/2025 09:00 Report Date: 01/02/2025 [...] Dalton M.D. 01/02/2025 3:02 PM Dictation Location: [place] [address] Electronically authenticated by: [id number] Y Date: 5:02 Dictated By: Emmanuel Dalton M.D. Signed By:01/02/25 1505 DD/ 1502 TD/TT: Warehouse Administrator: Authorizing ProviderResult TypeResult StatusGeneric External Data Provider [facility] IMAGINGFinal Result documented in this encounter Visit Diagnoses Not on filedocumented in this encounter Care Teams Team MemberRelationshipSpecialtyStart DateEnd Date Danny Payne MD [address] [address] PCP - GeneralFanvly Medicine07/24/22 Danny Payne MD [address] [address] PCP - [facility]06/16/20documented as of this encounter
--- OUTSIDE RECORDS SUMMARY | 2025-01-11 15:05 | XMS_ITS | Clinical Summary ---
Author Organization [facility] Address [address] [place] [address] Care Team Providers Care Batch Room Technician Name Role Phone Unavailable Primary Care Provider Unavailabl e Allergies Active AllergyReactionsCriticalityNoted TjfgAwhsuihzIrjzfvdzhvuuTuslm59/05/2021 Other Reaction(s): hives MjpeyHvzqQie09/05/2021 Other Reaction(s): Unknown GzjqtxvpsQteeilt91/25/2023 Other Reaction(s): body numbness Medications MedicationSigDispense QuantityRefillsLast FilledStart DateEnd DateStatus ondansetron ODT (Zofran-ODT) 4 mg disintegrating tablet Take 4 mg by mouth if needed.Active no.37/iron/folic acid (PRENATA ORAL) Take by mouth in the morning.Active Active Problems ProblemNoted DateDiagnosed Date28 weeks gestation of /14/2025bnormal bleeding in menstrual cycle02/19/2024Status post arthroscopic reconstruction of anterior cruciate ligament of left knee using quadricepstendon autograft 05/10/2023cute pain of left knee4Chronic gyreyqd8412/10/2022igarette abohua2612/10/2022yst of ovary12/10/2022Hashimoto's bhczntf5912/10/2022Hypotension determined by gsfcqavmhiv88/25/2023Juvenile osteochondrosis of tibial tuberosity 12/10/2022Non morbid obesity due to excess xhukxssm50/25/2023ostural orthostatic tachycardia syndrome (POTS)12/14/20185969Afujmbjqtur70/15/2019Syncope and /15/2019CommentsYes Encounters DateTypeDepartmentCare HdxvEycumuqixvp74/12/2025 3:20 PM EDTOffice Visit [facility] [address] [place] [address] Bibi Singh MD Syncope and collapse (Primary Dx); Neurocardiogenic syncope; 28 weeks gestation of ; Gabby's diseasefrom Last 3 Months Family History RelationNameStatusCommentsFatherAliveMotherAlive Social History Tobacco UseTypesPacks/DayYears UsedDateSmoking Tobacco: FormerCigarettes Smokeless Tobacco: Former Tobacco Cessation:Counseling Given: Not Answered Comments:Quite 6 month ago Alcohol UseStandard Drinks/WeekCommentsNot Currently0 (1 standard drink = 0.6 oz pure alcohol)NE Safety & EnvironmentAnswerDate RecordedFear of Current or Ex-PartnerNot on file05/09/2023Emotionally AbusedNot on file05/09/2023hysically AbusedNot on file05/09/2023Sexually AbusedNot on file05/09/2023hysically or Sexually AbusedNot on file05/09/2023CommentsYesSex and Gender InformationValueDate RecordedSex Assigned at FfhwuXfyqon60/08/2025 2:10 PM EDT Legal UirDnurzo10/29/2022 11:55 PM EDTGender FiefjgfeSxvxsa35/08/2025 2:10 PM EDTSexual OrientationHeterosexual or Rrnlexlt89/08/2025 2:10 PM EDT Last Filed Vital Signs Vital SignReadingTime TakenCommentsBlood Rxzrrpzu308/8009 4:02 PM EDT Ndovw053111/27/2024 4:02 PM EDTTemperature--Respiratory Rate--Oxygen Wvpyzvwhog59% 11/27/2024 4:02 PM EDTInhaled Oxygen Concentration--Ksxexl33 kg (172 lb) 11/27/2024 4:02 PM DEWZitusj646.1 cm (5' 5 )11/27/2024 4:02 PM EDTBody Mass Index28.62011/27/2024 4:02 PM EDT Plan of Treatment Health MaintenanceDue DateLast DoneCommentsIPV Vaccines (4 of 4 - 4-dose series) , 2000, 2000Depression Ngpewtaee44/25/2012 Varicella Vaccines (2 of 2 - 2-dose childhood series)HPV Vaccines (1 - 3-dose series)06/09/2014dult Wjiojlp45COVID-19 Vaccine (1 - season)2024Influenza Vaccine (#1)2024Pap Smear Zoster Vaccines (1 of 2)Pneumococcal Vaccine: Pediatrics (0 to 5 Years) and At-Risk Patients (6 to 64 Years)Aged Out 03/26/2000No longer eligible based on patient's age to complete this topicHIB RkzjlqkgPsfvggkzw17/27/2001, 09/11/2000, 03/26/2000, Additional history exists Meningococcal LfkkwinLqiyuufpy31/28/2017Meningococcal B VaccineAged OutNo longer eligible based on patient's age to complete this topicRotavirus VaccinesAged Out No longer eligible based on patient's age to complete this topic Insurance
--- OUTSIDE RECORDS SUMMARY | 2025-01-11 15:06 | XMS_ITS | CCD ---
Author Organization [facility] CliniSywv Care Team Providers Care Rag Room Supervisor Name Role Phone BECERRIL, DAVID P Unavailable [...] Payne MD Unavailable LESA SINGH Attending Unavailable WILLIAM, DOC Attending Unavailable LUNA STEEN Attending Unavailable LUNA STEEN Attending Unavailable PRETTY CHAIDEZ Attending Unavailable WILLIAM, DOC Attending Unavailable PRETTY CHAIDEZ Attending Unavailable WILLIAM, DOC Attending Unavailable ROSALIE PAYNE Attending Unavailable WILLIAMDOC YOUNGBLOOD Attending Unavailable MYRON MARROQUIN Attending Unavailable Allergies Allergy ClassificationReported Allergen(s)Allergy TypeDate of OnsetReaction(s) FacilityLatex (1 source)LatexSubstance Veseeek14-79-2805HrfdYxvdi HealthMacrolides (antibiotic) (1 source)AzithromycinDrug Rkomkbt21-22-2428BkikeZiuyj Health (20 sources)Azithromycin; Translations: [azithromycin]Drug Beylzxp49-21-3129 [facility] (11 sources)Latex; Translations: [Latex]Propensity to adverse reactions to drug 39-57-8052JufsKqwvm Health (1 source)AzithromycinDrug Gczswnn82-84-3711Jvu [facility] Repository (1 source)natural latex rubberDrug allergy (disorder)[facility] Repository (2 sources)Banana Extract; Translations: [Banana]Drug AllergyVomiting (disorder) [facility] (20 sources)Midodrine; Translations: [midodrine]Drug Globwnt76-25-6878Qzjrtvpf[facility] (20 sources)LatexAllergy to sttswiazv27-92-0205StdxCFHY Healthcare (1 source)AzithromycinDrug Uxdisog28-45-2155IdotivpbkAs[facility] Rep[facility] (1 source)LatexDrug allergy (disorder)47-15-5526GzxbqyjumAshtabula General Hospital Repository Medications Current Medications MedicationDrug Class(es)DatesSig (Normalized)Sig (Original)[id number] 200 actuat albuterol 0.09 mg/actuat metered dose inhaler (2 sources)beta2-Adrenergic AgonistStart: 56-30-8927tlia 2 puff(s) by inhalation four times daily as neededAlbuterol Sulfate HFA 108 (90 Base) MCG/ACT 2 puffs Inhalation 4 times a day prn Aug, ActiveStart: 66-29-6558diqn 2 puff(s) by inhalation four times daily as neededAlbuterol Sulfate HFA 108 (90 Base) MCG/ACT 2 puffs Inhalation 4 times a day prn Aug, Not-Taking/PRN fluconazole 150 mg oral tablet (2 sources)Azole AntifungalStart: 12-09-2024 End: 12-78-0828wibbcebrhlq (Diflucan) 150 MG tablet Indications: Yeast infection Take 1 tablet (150 mg) by mouth 1(one) time for 1 dose Repeat in 7 days if symptoms persist. 2 tablet 12/09/2024 12/09/2024 Activefluticasone propionate 0.05 mg/actuat metered dose nasal spray (4 sources)CorticosteroidStart: 87-34-3892qdybatkygwe (Flonase) 50 MCG/ACT nasal sprayStart: 25-47-6920uzek 1 spray(s) nasal route once dailyFluticasone Propionate 50 MCG/ACT 1 spray in each nostril Nasally Once a day for 14 15 Mar, 2023 ActiveStart: 32-22-5549ocao 2 spray(s) nasal route once daily as needed Fluticasone Propionate 50 MCG/ACT 2 sprays Nasally Once a day for 14 day(s) Aug, Not-Taking/PRNStart: 52-47-4792hmxc 2 spray(s) nasal route once daily Fluticasone Propionate 50 MCG/ACT 2 sprays Nasally Once a day for 14 day(s) Aug, Activeibuprofen 600 mg oral tablet (20 sources)Nonsteroidal Anti-inflammatory DrugStart: 94-98-9405veal 1 tablet by mouth four times daily as needed for painibuprofen (ADVIL;MOTRIN) 600 MG tablet Take 1 tablet by mouth 4 times daily as needed for Pain 30 tablet 0 12/14/2020 Active End: 39-69-0049jwgvhxykn 200 MG tablet Take by mouth. 07/16/2024 Discontinued magnesium oxide 400 mg oral tablet (5 sources)Start: 07-16-2024 End: 91-82-7869sqbc 1 tablet by mouth once dailymagnesium oxide (Mag-Ox) 400 MG tablet Indications: Cluster headache, not intractable, unspecified chronicity pattern Take 1 tablet (400 mg) by mouth Daily 30 tablet 6 07/16/2024 08/15/2024 Activeondansetron 4 mg oral tablet (20 sources)Serotonin-3 Receptor AntagonistStart: 25-81-1797mymn 1 tablet by mouth every six hours as needed for nausea and nausea, then take 1 tablet by mouthevery six hours as needed for nausea and nauseaondansetron (Zofran) 4 MG tablet Indications: Nausea and vomiting in ([facility]) Take 1 tablet (4 mg) by mouth every 6 (six) hours if needed for nausea or vomiting for up to 30 doses Take 1 tablet by mouth every 6 hours as needed for nausea. 30 tablet 12/23/2024 ActiveStart: 10-05-2024 End: 01-08-3733qfqk 1 tablet by mouth every six hours for nauseaondansetron ODT (Zofran-ODT) 4 MG disintegrating tablet Indications: Nausea and vomiting during ([facility]) Take 1 tablet (4 mg) by mouth every 6 (six) hours if needed for nausea or vomiting 30 tablet 3 10/05/2024 11/04/2024 ActiveStart: 08-26-2024 End: 86-19-4871jvgh 1 tablet by mouth every six hours for nauseaondansetron ODT (Zofran-ODT) 4 MG disintegrating tablet Indications: Nausea and vomiting during ([facility]) Take 1 tablet (4 mg) by mouth every 6 (six) hours if needed for nausea or vomiting 30 tablet 3 08/26/2024 09/30/2024 ActiveStart: 07-06-2024 End: 94-47-4347hioh 1 tablet by mouth every six hours for nauseaondansetron ODT (Zofran-ODT) 4 MG disintegrating tablet Indications: Nausea and vomiting during Take 1 tablet (4 mg) by mouth every 6 (six) hours if needed for nausea or vomiting 30 tablet 2 07/06/2024 08/05/2024 Activepenicillin v potassium 500 mg oral tablet (1 source)Start: 47-72-5197grdl 1 tablet by mouth every eight hoursPenicillin V Potassium 500 MG 1 tablet Orally tid for 10 day(s) Apr, Active polysaccharide iron complex 391 mg oral capsule (5 sources)Start: 11-05-2024 End: 07-35-7114xfxg 1 capsule by mouth once dailyiron polysaccharides (ProFe) 391.3 (180 Fe) MG capsule Indications: Low hemoglobin Take 1 capsule (391.3 mg) by mouth Daily 30 capsule 3 11/05/2024 12/05/2024 ActivetiZANidine 4 mg oral tablet (2 sources)Central alpha-2 Adrenergic AgonistStart: 23-11-4034fsfi 1 tablet by mouth every eight hours as needed for paintiZANidine (ZANAFLEX) 4 MG tablet Take 1 tablet by mouth every 8 hours as needed (pain and muscle tension/cramps) 10 tablet 0 12/14/2020 Active Completed/Discontinued Medications MedicationDrug Class(es)DatesSig (Normalized)Sig (Original)acetaminophen 325 mg oral tablet (1 source)Start: 09-19-2020 End: 14-49-6094bedvhtxwxgbej (TYLENOL) tablet 650 mgCitalopram (7 sources)Serotonin Reuptake InhibitorCitalopram Hydrobromide Not-Taking/PRN take 1 tablet by mouth once dailycitalopram (CELEXA) 20 MG tablet Take 20 mg by mouth daily 0 ActiveCitalopram Hydrobromide Activeclotrimazole 10 mg oral lozenge (3 sources)Azole AntifungalStart: 37-48-7306Xplhvhvfwexe 10 MG 1 wenceslao Mouth/Throat Three times a day for 7 day(s) Apr, Not-Taking/PRN medroxyPROGESTERone (4 sources)ProgestinDepo-Provera Not-Taking/PRNDepo-Provera Activemetoclopramide 10 mg oral tablet (12 sources)Dopamine-2 Receptor AntagonistStart: 07-16-2024 End: 79-68-6697fcthtbodmmpcaz (Reglan) 10 MG tablet Indications: Nausea/vomiting in [...] tablet (2 sources)Nonsteroidal Anti-inflammatory DrugStart: 05-24-2021 End: 06-81-9274yoaiwjoc sodium (ANAPROX) tablet 550 mgStart: 73-87-3440rlrz 1 tablet by mouth twice daily at mealtimenaproxen (NAPROSYN) 500 MG tablet Take 1 tablet by mouth 2 times daily (with meals) 20 tablet 1 05/24/2021 Active pantoprazole 40 mg delayed release oral tablet (17 sources)Proton Pump InhibitorStart: 02-17-2024 End: 95-35-6550syxm 1 tablet by mouth before mealtimepantoprazole (ProtoNix) 40 MG EC tablet Take 40 mg by mouth in the morning. Take before meals. 02/17/2024 09/30/2024 DiscontinuedpredniSONE 20 mg oral tablet (3 sources)Start: 58-46-1962vhxm 1 tablet by mouth every twelve hourspredniSONE 20 MG 1 tablet Orally 2 times a day for 5 day(s) Aug, Not-Taking/PRN Start: 25-91-6684qbvf 1 tablet by mouth every twelve hourspredniSONE 20 MG 1 tablet Orally bid for 5 day(s) Apr, Active Problems Active Problems Problem ClassificationProblemDateDocumented DateEpisodic/ChronicAbdominal pain (11 sources)Pelvic and perineal pain; Translations: [Right lower quadrant pain] Onset: 26-59-1907YojmxhepKgdixhj dysrhythmias (20 sources)Postural orthostatic tachycardia syndrome ; Translations: [Postural orthostatic tachycardia syndrome (POTS)]Onset: 839365-08-7480Nbvzhht Cardiac dysrhythmias (4 sources)Palpitations; Translations: [Palpitations]57-32-8791Oauhbhog Coagulation and hemorrhagic disorders (1 source)Qualitative platelet defects; 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]Onset: 52-76-3027WlgevbhHnyeptmxgj disorders (4 sources)Gastroesophageal reflux disease; Translations: [Gastro-esophageal reflux disease without esophagitis]24-54-8748UxdxlhcCcryfyiq; including migraine (1 source)Cluster headache; Translations: [Cluster headache syndrome, unspecified, not intractable]96-15-9512MfhqhauAreoyuhaebatt and screening for infectious disease (4 sources)Contact with and (suspected) exposure to other viral communicable diseases; Translations: [Exposureto sexually transmissible disorder]Onset: 04-07-2021 Resolved: 62-15-0437TezlzzhaTtghvno and fatigue (20 sources)Fatigue; Translations: [Chronic fatigue, unspecified]Onset: 581617-57-2308IjdhrgwJpbtegpag disorders (20 sources)Disorder of menstruation; Translations: [Irregular menstruation, unspecified]Onset: 518352-47-2049PbpyuqjXkekwmt (3 sources)Candidal stomatitis; Translations: [Mycosis]Onset: 05-11-2021 Resolved: 74-22-7768ZszywwdvAxwevp and vomiting (4 sources)Nausea; Translations: [Nausea]92-53-6068WugxnjwnIhepf bone disease and musculoskeletal deformities (20 sources)Patricia Schlatter disease; 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]Onset: 160635-15-9064JjzlxlgZdgmx circulatory disease (1 source)Postural orthostatic tachycardia zmbosfuq38-27-1744EszwywsmPnvkc complications of (1 source)Vomiting of , unspecified; Translations: [Unspecified vomiting of , unspecified as to episode of care or not applicable] 24-76-1585TadaunfaWselv gastrointestinal disorders (2 sources)Diarrhea; Translations: [Diarrhea, unspecified]66-42-2678Pitmcssj Other gastrointestinal disorders (2 sources)Diarrhea, unspecified; Translations: [Diarrhea]97-23-8075Gdkwyqge Other gastrointestinal disorders (1 source)Dysphagia; Translations: [Dysphagia, unspecified]02-87-5745Kzudodlz Other gastrointestinal disorders (1 source)Dysphagia, unspecified; Translations: [Dysphagia, unspecified] 62-80-3724OyahpvgtHvdyw injuries and conditions due to external causes (1 source)Closed injury of head; Translations: [Unspecified injury of head, initial encounter]EpisodicOther injuries and conditions due to external causes (1 source)Injury of coccyx; Translations: [Unspecified injury of lower back, initial encounter]EpisodicOther injuries and conditions due to external causes (2 sources)Injury of left knee; Translations: [Unspecified injury of left lower leg, initial encounter]54-86-8820UthtguyuSqybq nutritional; endocrine; and metabolic disorders (20 sources)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 imbalance; Translations: [Other obesity due to excess calories]Onset: 929535-78-1189MqslpbzUtsya nutritional; endocrine; and metabolic disorders (1 source)H/O: nskoehmmumvoxm56-78-7834KjurikkkIboqb and delivery including normal (18 sources); Translations: [Encounter for supervision of normal , unspecified, unspecified trimester]40-86-1114HljmonpzUxkmx screening for suspected conditions (not mental disorders or infectious disease) (8 sources)Encounter for screening for malignant neoplasm of cervix; Translations: [Patient encounter status]Onset: 25-26-0085VwzrqfcpYxkik upper respiratory infections (9 sources)Streptococcal sore throat; Translations: [Strep throat]Onset: 05-01-2021 Resolved: 08-97-9366HgqqhubuZszcxohd codes; unclassified (2 sources)Gestation period, 11 weeks; Translations: [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 ]93-70-9121ZdscrwetTcilyoxb codes; unclassified (2 sources)Gestation period, 15 weeks; Translations: [15 weeks gestation of ]77-44-7246PzoisxziCcndywqk codes; unclassified (2 sources)Gestation period, 19 weeks; Translations: [19 weeks gestation of ]48-98-9105MkiegopeMwabcnng codes; unclassified (2 sources)Gestation period, 23 weeks; Translations: [23 weeks gestation of ]52-98-7886CbpamkktJldqpeqp codes; unclassified (2 sources)Gestation period, 27 weeks; Translations: [27 weeks gestation of ]13-92-5072TbofsjvuSgerhiit codes; unclassified (2 sources)Gestation period, 29 weeks; Translations: [29 weeks gestation of ]03-75-4095UlborsmfHanfbvom codes; unclassified (2 sources)Gestation period, 31 weeks; Translations: [31 weeks gestation of ]64-41-6142DrmrngsgXwtafsvr codes; unclassified (2 sources)Gestation period, 33 weeks; Translations: [33 weeks gestation of ]57-52-6185XoujgruhUbxxkwdqy-related disorders (20 sources)Cigarette smoker ; Translations: [Nicotine dependence, cigarettes, uncomplicated]Onset: 791551-87-2295TsizfskZklfmzgqsnv injury; contusion (1 source)Contusion of left knee; Translations: [Contusion of left knee, initial encounter]EpisodicSyncope (2 sources)Syncope; Translations: [Syncope]Onset: 43-61-4107WmtnzceaKmvxzyq disorders (20 sources)Evan thyroiditis; Translations: [Autoimmune thyroiditis]Onset: 382069-02-2848MzxczrbEmhlwrmkvxva (2 sources)Unknown / UNK(Unknown)Onset: 26-70-5394Rcknctfwfnwf (2 sources)New Patient; Translations: [New Patient]Onset: 46-76-7610Plkoyfzdqkjp (2 sources)POTSOnset: 11-27-2024 Past or Other Problems Problem ClassificationProblemDateDocumented DateEpisodic/ChronicChronic obstructive pulmonary disease and bronchiectasis (1 source)Bronchitis, not specified as acute or chronicOnset: 08-21-2021 Resolved: 52-16-1575CkmhyowhCkpqzxatf (5 sources)Influenza; Translations: [Influenza A]Other circulatory disease (4 sources)Orthostatic hypotension; Translations: [ORTHOSTATIC HYPOTENSION] Onset: 62-78-9443WqfeikhkIoear circulatory disease (20 sources)Low blood pressure; Translations: [Hypotension, unspecified]Onset: 521060-36-9975EpbuutbxRnolu non-traumatic joint disorders (20 sources)Pain in left knee; Translations: [Pain in joint, lower leg]Onset: 541049-43-8123VqjodhuxAwsxq nutritional; endocrine; and metabolic disorders (20 sources)Body mass index 25-29 - overweight; Translations: [Overweight]Onset: 12-10-2022 Resolved: 664281-36-1565CtcayvlnVcuszwi cyst (20 sources)Cyst of ovary; Translations: [Unspecified ovarian cyst, unspecified side]Onset: 607103-50-9242Epyidmqd Results Test NameValueInterpretationReference RangeFacilityUrinalysis macro (dipstick) panel (U)on 24-48-0817Unrkeyhry, UANegativeNegative - 4(70) +++ mg/dLNOMS HealthcareBlood, UANegativeNegative - 50 Randall/mcLNOMS HealthcareClarity, UAClear NOMS HealthcareColor, UAYellowNOMS HealthcareGlucose, UA3+Negative - 1999(110) ++++ mg/dLNOMS HealthcareInterpretation and review of laboratory resultsAbnormal NOMS HealthcareKetones, UAPositiveNegative - 160(16) ++++ mg/dLNOMS Healthcare Leukocytes, UATraceNegative - 500+++ Rick/mcLNOMS HealthcareNitrite, UANegative Negative - PositiveNOMS HealthcarepH, UA6.55 - 9NOMS HealthcareProtein, UATrace Negative - 1999(20) ++++ mg/dLNOMS HealthcareSpec Grav, UA1.0101 - 1.03NOMS HealthcareUrobilinogen, UA2.00.2 - 12 mg/dLNOMS HealthcareNOMS HealthcareUS OB BPP W NON-STRESSon 50-41-7710GffBay[place] [address] Ultrasound Report Signed Patient: ALETA CASTRO MR#: [id number] : 2000 Acct:[id number] Age/Sex: 24 / F ADM Date: 01/02/25 Loc: US Attending Dr: Doc Thomas D.O. Ordering Physician: Doc Thomas D.O. Date of Service: 01/02/25 Procedure(s): US OB BPP w non-stress Accession Number(s): [id number] cc: Doc Thomas D.O.; ROSALIE PAYNE [address] [address] Patient Name: ALETA CASTRO MRN: [id number] date: 2000 Sex: F Assigned Patient Location: [facility] Current Patient Location: Accession/Order Number: [id number] Exam Date: 01/02/2025 09:00 Report Date: 01/02/2025 [...] 01/02/2025 3:02 PM Dictation Location: [place] [address] Electronically authenticated by: [id number] Y Date: 01/02/2025 15:02 Dictated By: Emmanuel Dalton M.D. Signed By: 01/02/25 1505 DD/ 1502 TD/TT: Animal Pathology Teacher:NINAHRadiology, Radiologist, - 01/02/2025 [place] [address] Ultrasound Report Signed Patient: ALETA CASTRO MR#: [id number] : 2000 Acct:[id number] Age/Sex: 24 / F ADM Date: 01/02/25 Loc: US Attending Dr: Doc Thomas D.O. Ordering Physician: Doc Thomas D.O. Date of Service: 01/02/25 Procedure(s): US OB BPP w non-stress Accession Number(s): [id number] cc: Doc Thomas D.O.; ROSALIE PAYNE The [place] [id number] Patient Name: ALETA CASTRO MRN: [id number] date: 2000 Sex: F Assigned Patient Location: [facility] Current Patient Location: Accession/Order Number: [id number] Exam Date: 01/02/2025 09:00 Report Date: 01/02/2025 [...] 01/02/2025 3:02 PM Dictation Location: [place] [address] Electronically authenticated by: [id number] Y Date: 01/02/2025 15:02 Dictated By: Emmanuel Dalton M.D. Signed By: 01/02/25 150 DD/ 150 TD/TT: Animal Pathology Teacher: KYE HealthcareRadiology Study observation (narrative)NOMS HealthcareUS OB BPP W NON-STRESSOrdered By: Radiologist Radiology on 67-33-2530TXQC [facility] Work Phone: aLL THYROID STIM HORMONEon 55-37-2451Cqilnmesnvmsgg and review of laboratory resultsAbnormalNOSaint [facility] Hospital Qn0.131 m[IU]/LLow NOMS HealthcareCLINISYNCNOMS HealthcareUS OB BPP W NON-STRESSon 12-26-[address] [address] Ultrasound Report Signed Patient: ALETA CASTRO MR#: [id number] : 2000 Acct:[id number] Age/Sex: 24 / F ADM Date: 12/26/24 Loc: US Attending Dr: Doc Thomas D.O. Ordering Physician: Doc Thomas D.O. Date of Service: 12/26/24 Procedure(s): US OB BPP w non-stress Accession Number(s): [id number] cc: Doc Thomas D.O.; ROSALIE PAYNE The [address] [address] Patient Name: ALETA CASTRO MRN: [id number] date: 2000 Sex: F Assigned Patient Location: US Current Patient Location: Accession/Order Number: [id number] Exam Date: 12/26/2024 09:00 Report Date: 12/26/2024 [...] Aguilar M.D. 12/26/2024 11:19 AM Dictation Location: [place] [address] Electronically authenticated by: [id number] Y Date: 12/26/2024 11:19 Dictated By: Deshaun Aguilar M.D. Signed By: 12/26/24 1122 DD/ 1119 TD/TT: Animal Pathology Teacher:NINAHRadiology, Radiologist, MD - 12/26/2024 The [place] [id number] Ultrasound Report Signed Patient: ALETA CASTRO MR#: [id number] : 2000 Acct:[id number] Age/Sex: 24 / F ADM Date: 12/26/24 Loc: US Attending Dr: Doc Thomas D.O. Ordering Physician: Doc Thomas D.O. Date of Service: 12/26/24 Procedure(s): US OB BPP w non-stress Accession Number(s): [id number] cc: Doc Thomas D.O.; ROSALIE PAYNE [place] [address] Patient Name: ALETA CASTRO MRN: [id number] date: 2000 Sex: F Assigned Patient Location: US Current Patient Location: Accession/Order Number: [id number] Exam Date: 12/26/2024 09:00 Report Date: 12/26/2024 [...] Aguilar M.D. 12/26/2024 11:19 AM Dictation Location: [place] [address] Electronically authenticated by: [id number] Y Date: 12/26/2024 11:19 Dictated By: Deshaun Aguilar M.D. Signed By: 12/26/24 1122 DD/ 1119 TD/TT: Animal Pathology Teacher: KYE HealthcareRadiology Study observation (narrative)NOMS HealthcareUS OB BPP W NON-STRESSOrdered By: Radiologist Radiology on 37-31-8154CZTW [facility] Work Phone: US OB GROWTHon [phone], [place] [address] Ultrasound Report Signed Patient: ALETA CASTRO MR#: [id number] : 2000 Acct:[id number] Age/Sex: 24 / F ADM Date: 12/26/24 Loc: US Attending Dr: Doc Thomas D.O. Ordering Physician: Doc Thomas D.O. Date of Service: 12/26/24 Procedure(s): US OB growth Accession Number(s): [id number] cc: Doc Thomas D.O.; ROSALIE PAYNE The [address] [address] Patient Name: ALETA CASTRO MRN: [facility]:[id number] date: 2000 Sex: F Assigned Patient Location: US Current Patient Location: Accession/Order Number: [id number] Exam Date: 12/26/2024 09:00 Report Date: 12/26/2024 11:31 At the request of: DOC THOMAS DO Procedure: US OB growth Obstetric ultrasound for growth INDICATION: Evan's disease FINDINGS: Single live anterior cephalic presentation longitudinal lie. Amniotic fluid index 12.4 cm between the gestational age fifth and 95th percentile. Largest pocket of fluid 5.1 cm. heart rate 1 52 bpm. motion documented by the regional driver.. Estimated weight 2093 g 71.4%. Gestation age 32 weeks and 0 days. Biparietal diameter 7.93 m. Head circumference 30.7 cm. Otherwise the 10.6 cm. Abdominal circumference 28.9 cm. Femur length 6.4 cm. US/US OB growth IMPRESSION: Single live intrauterine of approximately 30 weeks Impression dictated by: Deshaun Aguilar M.D. 12/26/2024 11:31 AM Dictation Location: [place] [address] Electronically authenticated by: [id number] Y Date: 12/26/2024 11:31 Dictated By: Deshaun Aguilar M.D. Signed By: 12/26/24 1133 DD/ 1131 TD/TT: Animal Pathology Teacher:NINAHRadiology, Radiologist, MD - 12/26/[address] [address] Ultrasound Report Signed Patient: ALETA CASTRO MR#: [id number] : 2000 Acct:[id number] Age/Sex: 24 / F ADM Date: 12/26/24 Loc: US Attending Dr: Doc Thomas D.O. Ordering Physician: Doc Thomas D.O. Date of Service: 12/26/24 Procedure(s): US OB growth Accession Number(s): [id number] cc: Doc Thomas D.O.; ROSALIE PAYNE [place] [address] Patient Name: ALETA CASTRO MRN: [id number] date: 2000 Sex: F Assigned Patient Location: US Current Patient Location: Accession/Order Number: [id number] Exam Date: 12/26/2024 09:00 Report Date: 12/26/2024 11:31 At the request of: DOC THOMAS DO Procedure: US OB growth Obstetric ultrasound for growth INDICATION: Evan's disease FINDINGS: Single live anterior cephalic presentation longitudinal lie. Amniotic fluid index 12.4 cm between the gestational age fifth and 95th percentile. Largest pocket of fluid 5.1 cm. heart rate 1 52 bpm. motion documented by the regional driver.. Estimated weight 2093 g 71.4%. Gestation age 32 weeks and 0 days. Biparietal diameter 7.93 m. Head circumference 30.7 cm. Otherwise the 10.6 cm. Abdominal circumference 28.9 cm. Femur length 6.4 cm. US/US OB growth IMPRESSION: Single live intrauterine of approximately 30 weeks Impression dictated by: Deshaun Aguilar M.D. 12/26/2024 11:31 AM Dictation Location: [place] [address] Electronically authenticated by: [id number] Y Date: 12/26/2024 11:31 Dictated By: Deshaun Aguilar M.D. Signed By: 12/26/24 1133 DD/ 1131 TD/TT: Animal Pathology Teacher: KYE HealthcareRadiology Study observation (narrative)NOMS HealthcareUS OB GROWTHOrdered By: Radiologist Radiology on 32-26-7037[facility] Work Phone: Urinalysis macro (dipstick) panel [...] UANegativeNegative - 1999(20) ++++ mg/dLNOMS HealthcareSpec Grav, UA1.0151 - 1.03NOMS HealthcareUrobilinogen, UA2.00.2 - 12 mg/dLNOMS HealthcareNOMS HealthcareUrinalysis macro (dipstick) panel (U)on 68-91-9699Wnriyayry, UANegativeNegative - 4(70) +++ mg/dLNOMS HealthcareBlood, UANegativeNegative - 50 Randall/mcLNOMS HealthcareClarity, UAClear NOMS HealthcareColor, UAYellowNOMS HealthcareGlucose, UANegativeNegative - 1999(110) ++++ mg/dLNOMS HealthcareInterpretation and review of laboratory resultsAbnormalNOMS HealthcareKetones, UANegativeNegative - 160(16) ++++ mg/dL NOMS HealthcareLeukocytes, UAPositiveNegative - 500+++ Rick/mcLNOMS Healthcare Comment on above:1+Nitrite, UANegativeNegative - PositiveNOMS HealthcarepH, UA75 - 9NOMS HealthcareProtein, UANegativeNegative - 1999(20) ++++ mg/dLNOMS HealthcareSpec Grav, UA1.011 - 1.03NOMS HealthcareUrobilinogen, UA0.20.2 - 12 mg/dLNOMS HealthcareNOMS HealthcareOffice Visiton [phone]-up visit [id number] Aleta Castro 2000 F Date Provider Department Center 11/27/2024 98686-GEZKPULESA SINGH Family History Family Status - Relation Status Age at Mother Alive Father Alive Level of Service:46678 [place] OFFICE/OUTPATIENT NEW LOW MDM 30 MINUTES Reason for Visit and Comments: New Patient [632] - New patient here today to establish care with cardiology Syncope [506] POTS [Other] Positive tilt table [Other] 6 months [Other]NormalUnAdams County HospitalUrinalysis macro (dipstick) panel (U)on 05-42-8792Mvpthzoeb, UAPositiveNegative - 4(70) +++ mg/dLNOMS HealthcareComment on [...] UA1.031 - 1.03NOMS HealthcareUrobilinogen, UA0.20.2 - 12 mg/dLNOMS HealthcareNOMS HealthcareCA ECHO DOPPLER COMPLETEon 49-55-4580ZnvBayville, [place] [address] Cardiology Report Signed Patient: ALETA CASTRO MR#: [id number] : 2000 Acct:[id number] Age/Sex: 24 / F ADM Date: 11/12/24 Loc: CARD Attending Dr: Luna Steen Ordering Physician: Luna Steen Date of Service: 11/12/24 Procedure(s): CA echo doppler complete Accession Number(s): [id number] cc: Luna Steen; ROSALIE PAYNE Patient Name: ALETA CASTRO MR#: [id number] : 2000 Exam Date: 11/12/2024 Ordering Doctor: LUNA STEEN [facility] ECHOCARDIOGRAM REPORT PROCEDURE: CA ECHO DOPPLER [...] at 16:39 (more content not included)...TBHRadiology, Radiologist, MD - 11/24/2024 [place] [address] Cardiology Report Signed Patient: ALETA CASTRO MR#: [id number] : 2000 Acct:[id number] Age/Sex: 24 / F ADM Date: 11/12/24 Loc: CARD Attending Dr: Luna Steen Ordering Physician: Luna Steen Date of Service: 11/12/24 Procedure(s): CA echo doppler complete Accession Number(s): [id number] cc: Luna Steen; ROSALIE PAYNE Patient Name: ALETA CASTRO MR#: [id number] : 2000 Exam Date: 11/12/2024 Ordering Doctor: LUNA STEEN [facility] ECHOCARDIOGRAM REPORT PROCEDURE: CA ECHO DOPPLER [...] Signed By: 11/24/24 1640 DD/ 1639 TD/TT: Animal Pathology Teacher: KYE HealthcareRadiology Study observation (narrative)KYE HealthcareCA ECHO DOPPLER COMPLETEOrdered By: Radiologist Radiology on 65-36-1086UK[facility] Work Phone: ecg 12-LEADon 34-06-8793QayBay[place], [place] [address] Electrocardiograph Report Signed Patient: ALETA CASTRO MR#: [id number] : 2000 Acct:[id number] Age/Sex: 24 / F ADM Date: 11/12/24 Loc: CARD Attending Dr: Luna Steen Ordering Physician: Luna Steen Date of Service: 11/12/24 Procedure(s): ECG 12 lead Accession Number(s): [id number] cc: [facility] Test Date: 2024-11-12 Pat Name: ALETA CASTRO Department: Room: - 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 Signed By: 11/13/24 1334 11/13/24 1334 DD/ 1206 TD/TT: Animal Pathology Teacher: KYE [facility] CenterEC 12-LEADOrdered By: Radiologist Radiology on 53-04-3994MLASEllett Memorial Hospital Work Phone: ECG 12-LEADon 60-75-7032Xkvupgotn Study observation (narrative)[facility] HospitalALL CBC WITH AUTO DIFFon 79-08-5051IZLACGWPB ABSOLUTE AGKH2OYBN HealthcareBasophils/100 WBC (Bld)0.2 %0.2 - 2.0 %[facility] Eosinophils/100 WBC (Bld)0.5 %Low0.9 - 7.0 %[facility] HospitalErythrocyte distribution width (RBC) [Ratio]12.7 %11.0 - 15.0 %[facility] HospitalHematocrit (Bld) [Volume fraction]31.2 %Low36.0 - 48.0 %[facility] HospitalHemoglobin (Bld) [Mass/Vol]10.8 g/dLLow12.0 - 16.0 g/dLEllett Memorial HospitalIMMATURE GRANULOCYTES ABS AUTO0.01NOHermann Area District HospitalImmature granulocytes/100 WBC (Bld)0.2 %0.0 - 0.5 %[facility] HospitalInterpretation and review of laboratory resultsAbnormalNOHermann Area District Hospital LYMPHOCYTES ABSOLUTE QTJJ1NngAPDS HealthcareLymphocytes/100 WBC (Bld)15 %Low20.5 - 60.0 %[facility] HospitalMCH (RBC) [Entitic mass]32.3 pg26.7 - 34.0 pgSaint Luke's North Hospital–Barry RoadHC (RBC) [Mass/Vol]34.6 g/dL29.9 - 35.2 g/dLSaint Luke's North Hospital–Barry RoadV (RBC) [Entitic vol]93.4 fL81.0 - 99.0 fLEllett Memorial HospitalMONOCYTES ABSOLUTE AUTO0.5NOCO HealthcareMonocytes/100 WBC (Bld)7.7 %1.7 - 12.0 %NOMS HealthcareNEUTROPHILS ABSOLUTE XLGH7GCMW HealthcareNeutrophils/100 WBC (Bld)76.4 %High43.0 - 75.0 % NOMS HealthcarePlatelet mean volume (Bld) [Entitic vol]9.7 fL9.5 - 13.5 fLNOMS HealthcareTBH EO #0NOMS HealthcareTBH FDB717DGYM HealthcareTBH RBC3.34LowNOMS HealthcareTBH WBC6.6NOMS HealthcareCLINISYNCNOMS HealthcareIGP,APTIMA HPV,AGE GDLNon 99-78-5590UGW GDLN ACOG TESTINGNote.NOMS HealthcareComment on above:TESTS RESULT FLAG UNITS REF RANGE LAB Clinician Provided Cytology Information Source.............Endocervix No. of containers..01 ThinPrep Vial Age Algo ACOG Yaa... -15 04 FLAG LEGEND: L-Low Normal,H-High Normal,LL-Alert Low,HH-Alert High <-Panic Low,>-Panic High,A-Abnormal,AA-Critical Abnormal Performed at: 01 =G [facility] [address] [address] Ludy Hector MD, IGP, RFX APTIMA HPV ASCUNote.[facility] HealthcareComment on above:TESTS RESULT FLAG UNITS REF RANGE LAB DIAGNOSIS: 02 NEGATIVE FOR INTRAEPITHELIAL LESION OR MALIGNANCY. THIS SPECIMEN WAS RESCREENED PART OF OUR ANTENNA MACHINE OPERATOR PROGRAM. Specimen adequacy: 02 Satisfactory for evaluation. No endocervical component is identified. Performed by: 02 Brionna Mello, Automation Engineering Manager ([facility]) QC reviewed by: 02 Polina Simons, Automation Engineering Manager . 02 Note: Note 02 The [...] <-Panic Low,>-Panic High,A-Abnormal,AA-Critical Abnormal Performed at: [address] [facility] [address] [place] [address] Ludy Hector MD, Performed at: = - [facility] [address], [place] [id number] Marine Service Manager: Ludy Hector MD, Phone: [phone] Performed at: [facility], [place] [id number] Marine Service Manager: Ludy Hector MD, Phone: [phone] BRUSH-SPATULA ENDOCERVIX CLINISYNCNOMS HealthcareRECURRENT VAGINITIS (HTRX)on 17-30-3487CCLUUZSFP VAGINAE 0NOMS HealthcareATOPOBIUM VAGINAENot detectedNOMS HealthcareBVAB 2,3 (BACTERIAL VAGINOSIS ASSOCIATED BACTERIA 2, 3); MOBILUNCUS FOU6JPID HealthcareBVAB 2,3 (BACTERIAL VAGINOSIS ASSOCIATED BACTERIA 2, 3); MOBILUNCUS SPPNot detectedNOMS HealthcareCANDIDA ALBICANS, PARAPSILOSIS, CWVFWMCFPJ4BNRF HealthcareCANDIDA ALBICANS, PARAPSILOSIS, TROPICALISNot detectedNOMS HealthcareCANDIDA GLABRATA0 NOMS HealthcareCANDIDA GLABRATANot detectedNOMS HealthcareCANDIDA VQCTEE3RQAU HealthcareCANDIDA KRUSEINot detectedNOMS HealthcareCHLAMYDIA IOZVWJOQHJB3CUFY HealthcareCHLAMYDIA TRACHOMATISNot detectedNOMS HealthcareGARDNERELLA VAGINALIS0 NOMS HealthcareGARDNERELLA VAGINALISNot detectedNOMS HealthcareMEGASPHAERA (TYPES 1, 2)0NOMS HealthcareMEGASPHAERA (TYPES 1, 2)Not detectedNOMS Healthcare MYCOPLASMA OYIFYSTMOC1AGUI HealthcareMYCOPLASMA GENITALIUMNot detectedNOMS HealthcareNEISSERIA EVZSCFKRAIY1FQTE HealthcareNEISSERIA GONORRHOEAENot detected NOMS HealthcareTRICHOMONAS RDZNTOIJO4RFZQ HealthcareTRICHOMONAS VAGINALISNot detectedNOMS HealthcareNOMS HealthcareUrinalysis macro (dipstick) panel (U)on 19-18-5219Pjckhjopn, UAPositiveNegative - 4(70) +++ mg/dLNOCO HealthcareBlood, UANegativeNegative - 50 Randall/mcLNOCO HealthcareClarity, UAClearNOMS Healthcare Color, UAYellowNOMS HealthcareGlucose, UAPositiveNegative - 2000(110) ++++ mg/dL NOMS HealthcareInterpretation and review of laboratory resultsAbnormalNOMS HealthcareKetones, UAPositiveNegative - 160(16) ++++ mg/dLNOCO Healthcare Leukocytes, UANegativeNegative - 500+++ Rick/mcLNOMS HealthcareNitrite, UA NegativeNegative - PositiveNOCO HealthcarepH, UA65 - 9NOMS HealthcareProtein, UA PositiveNegative - 1999(20) ++++ mg/dLNOMS HealthcareSpec Grav, UA1.031 - 1.03 NOMS HealthcareUrobilinogen, UA0.20.2 - 12 mg/dLNOMS HealthcareNOMS HealthcareUS OB CERVICAL LENGTHon 23-77-1494QzxBay[place], [place] [address] Ultrasound Report Signed Patient: ALETA CASTRO MR#: [id number] : 2000 Acct:[id number] Age/Sex: 24 / F ADM Date: 10/06/24 Loc: US Attending Dr: Doc Thomas D.O. Ordering Physician: Doc Thomas D.O. Date of Service: 10/06/24 Procedure(s): US OB cervical length Accession Number(s): [id number] cc: Doc Thomas D.O.; ROSALIE PAYNE [place] [address] Patient Name: ALETA CASTRO MRN: [id number]:[id number] date: 2000 Sex: F Assigned Patient Location: US Current Patient Location: US Accession/Order Number: [id number] Exam Date: 10/06/2024 14:25 Report Date: 10/06/2024 [...] Jr., D.O. 10/06/2024 2:26 PM Dictation Location: [place] [address] Electronically authenticated by: [id number] Y Date: 10/06/2024 14:26 Dictated By: Jermaine Nguyễn M.D. Signed By: 10/06/24 1428 DD/ 142 TD/TT: Animal Pathology Teacher:TBHRadiology, Radiologist, - 10/06/2024 [place] [address] Ultrasound Report Signed Patient: ALETA CASTRO MR#: [id number] : 2000 Acct:[id number] Age/Sex: 24 / F ADM Date: 10/06/24 Loc: US Attending Dr: Doc Thomas D.O. Ordering Physician: Doc Thomas D.O. Date of Service: 10/06/24 Procedure(s): US OB cervical length Accession Number(s): [id number] cc: Doc Thomas D.O.; ROSALIE PAYNE [place] [id number] Patient Name: ALETA CASTRO MRN: [id number]:[id number] date: 2000 Sex: F Assigned Patient Location: US Current Patient Location: US Accession/Order Number: [id number] Exam Date: 10/06/2024 14:25 Report Date: 10/06/2024 [...] Jr., D.O. 10/06/2024 2:26 PM Dictation Location: [place] [address] Electronically authenticated by: [id number] Y Date: 10/06/2024 14:26 Dictated By: Jermaine Nguyễn M.D. Signed By: 10/06/24 1428 DD/ 25 TD/TT: Animal Pathology Teacher: KYE HealthcareRadiology Study observation (narrative)KYE HealthcareUS OB CERVICAL LENGTHOrdered By: Radiologist Radiology on 60-99-4835WWAM Healthcare Work Phone: US OB 14+ WEEKS ANATOMY SCANon 33-69-8090PZ OB 14+ WEEKS ANATOMY SCANFINDINGS: A single, [...] menstrual period. TRANSCRIBED BY: ELECTRONICALLY SIGNED BY: Chica RedalNot AvailableComment on above:Order Comment: US OB ANATOMY SINGLE W US OB CERVICAL LENGTH Estimated Date of Delivery: 02/20/25 Gestational Age as of 09/02/2024: 75f6dEnryzuxeup macro (dipstick) panel (U)on 24-22-2617Jmqqxdaww, UANegativeNegative - 4(70) +++ mg/dLNOMS HealthcareBlood, UANegativeNegative - 50 Randall/mcLNOMS HealthcareClarity, UAClearNOMS Healthcare Color, UAYellowNOMS HealthcareGlucose, UANegativeNegative - 2000(110) ++++ mg/dL NOMS HealthcareInterpretation and review of laboratory resultsNormalNOMS HealthcareKetones, UANegativeNegative - 160(16) ++++ mg/dLNOMS Healthcare Leukocytes, UANegativeNegative - 500+++ Rick/mcLNOMS HealthcareNitrite, UA NegativeNegative - PositiveNOMS HealthcarepH, UA65 - 9NOMS HealthcareProtein, UA NegativeNegative - 2000(20) ++++ mg/dLNOMS HealthcareSpec Grav, UA1.0051 - 1.03 NOMS HealthcareUrobilinogen, UA1.00.2 - 12 mg/dLNOMS HealthcareNOMS Healthcare ALL THYROID STIM HORMONEon 43-85-5068TVI Qn0.836 m[IU]/LNOMS HealthcareCLINISYNC [facility] HealthcareUrinalysis macro (dipstick) panel (U)on 03-64-1171Mmfcxtiny, UA NegativeNegative - 4(70) +++ mg/dLNOMS HealthcareBlood, [...] 12 mg/dLNOMS HealthcareNOMS HealthcareALL THYROID STIM HORMONEon 85-07-8261YEL Qn1.413 m[IU]/LNOMS HealthcareCLINISYNHEBREW REHABILITATION CENTER HealthcareUrinalysis macro (dipstick) panel (U)on 73-24-6485Uvcdqknae, UANegativeNegative - 4(70) +++ mg/dLNOMS HealthcareBlood, UANegativeNegative - 50 Randall/mcLNOMS Healthcare Clarity, UAClearNOMS HealthcareColor, UAYellowNOMS HealthcareGlucose, UANegative Negative - 1999(110) ++++ mg/dLNOMS HealthcareInterpretation and review of laboratory resultsAbnormalNOMS HealthcareKetones, UAPositiveNegative - 160(16) ++++ mg/dLNOMS HealthcareComment on above:40Leukocytes, UATraceNegative - 500+++ Rick/mcLNOMS HealthcareNitrite, UANegativeNegative - PositiveNOMS HealthcarepH, UA6.55 - 9NOMS HealthcareProtein, UANegativeNegative - 2000(20) ++++ mg/dLNOMS HealthcareSpec Grav, UA1.0251 - 1.03NOMS HealthcareUrobilinogen, UA1.00.2 - 12 mg/dLNOMS HealthcareNOMS HealthcareBOX TESTon 92-81-6006RRT TEST SENT OUTUNITY NOMS PpxvmchuhbZZI3JNISROSBD GnglyuhulqDBH04/06/09NOMS HealthcareUNITY CLINISYNCNOCO HealthcareTBH DRUG SCREEN RAPID (URINE)on 70-51-2529PUVJEHRYCUA SCREEN URINENegativeNEGATIVENOMS HealthcareBARBITURATES SCREEN URINENegative NEGATIVENOMS HealthcareBENZODIAZEPINES [...] URINENegativeNEGATIVENOMS HealthcareCLINISYNCNOMS HealthcareHCG ( test) Ql (U)on 07-65-8183Lvcblhrvjzpfrf and review of laboratory resultsAbnormalNOMS HealthcarePreg Test, UrPositiveNegativeNOMS HealthcareNOMS HealthcareUS OB TRANSVAGINALon 05-52-5444NX OB TRANSVAGINALEXAM: US OB TRANSVAGINAL HISTORY: Dating. [...] II, MD, PHD at 19-Jul-2024 08:55:15 PM [facility] TeleradiologyNormalNot AvailableComment on above:Order Comment: US OB TRANSVAGINAL No LMP recorded.Urinalysis macro (dipstick) panel (U)on 84-50-6546Zakogmxsx, UA NegativeNegative - 4(70) +++ mg/dLNOMS HealthcareBlood, UANegativeNegative - 50 Randall/mcLNOMS HealthcareClarity, UAClearNOMS HealthcareColor, UAYellowNOMS HealthcareGlucose, UANegativeNegative - 2000(110) ++++ mg/dLNOMS Healthcare Interpretation and review of laboratory resultsNormalNOCO HealthcareKetones, UA NegativeNegative - 160(16) ++++ mg/dLNOMS HealthcareLeukocytes, UANegative Negative - 500+++ Rick/mcLNOMS HealthcareNitrite, UANegativeNegative - Positive NOMS HealthcarepH, UA6.55 - 9NOMS HealthcareProtein, UANegativeNegative - 1999(20) ++++ mg/dLNOCO HealthcareSpec Grav, UA1.021 - 1.03NOCO Healthcare Urobilinogen, UA1.00.2 - 12 mg/dLNOHermann Area District HospitalNOCO HealthcareCBC W Auto Differential panel (Bld)on 32-15-5187Loxf form neutrophils (Bld) [#/Vol]CANCELED NOMS HealthcareComment on above:Result canceled by the ancillary.Band form neutrophils/100 WBC (Bld)CANCELED%NOMS HealthcareComment on above:Result canceled by the ancillary.Basophils (Bld) [#/Vol]19 10*3/uLNOMS Healthcare Basophils/100 WBC (Bld)0.4 %[facility] HealthcareBlasts (Bld) [#/Vol]CANCELED0 cells/uLNOMS HealthcareComment on above:Result canceled by the ancillary. Blasts/100 WBC (Bld)CANCELED%NOMS HealthcareComment on above:Result canceled by the ancillary.Eosinophils (Bld) [#/Vol]91 10*3/uLNOMS HealthcareEosinophils/100 WBC (Bld)1.9 %[facility] HealthcareErythrocyte distribution width (RBC) [Ratio]12.5 % 11.0 - 15.0 %[facility] HealthcareHematocrit (Bld) [Volume fraction]38.9 %35.0 - 45.0 %[facility] HealthcareHemoglobin (Bld) [Mass/Vol]12.8 g/dL11.7 - 15.5 g/dLMOUNTAIN POINT [facility]ICAL [facility]ENTER HealthcareLymphocytes (Bld) [#/Vol]1282 10*3/uLNOMS HealthcareLymphocytes/100 WBC (Bld)26.7 %[facility] HospitalMCH (RBC) [Entitic mass]30.6 pg27.0 - 33.0 pgNOHermann Area District HospitalMCHC (RBC) [Mass/Vol]32.9 g/dL32.0 - 36.0 g/dLNOCO HealthcareComment on above:For adults, a slight decrease in the calculated MCHC value (in the range of 30 to 32 g/dL) is most likely not clinically significant; however, it should be interpreted with caution in correlation with other red cell parameters and the patient's clinical condition. MCV (RBC) [Entitic vol]93.1 fL80.0 - 100.0 fLNOMS HealthcareMetamyelocytes (Bld) [#/Vol]CANCELED0 cells/uLNOMS HealthcareComment on above:Result [...] NOMS HealthcareIron and Iron binding capacity panelon 80-70-2393Vqwv [Mass/Vol] 101 ug/dLNOMS HealthcareIron binding capacity [Mass/Vol]340NOMS HealthcareIron saturation [Mass fraction]30NOMS HealthcareLaboratory - Chemistry and Chemistry - challengeon 90-59-4765Qmglydx [Mass/Vol]4.8 g/dL3.6 - 5.1 g/dLNOCO Healthcare Albumin/Globulin [Mass ratio]1.8 {ratio}[facility] HealthcareALP [Catalytic activity/Vol]65 U/L31 - 125 U/LNOMS HealthcareALT [Catalytic activity/Vol]16 U/L 6 - 29 U/LNOMS HealthcareAST [Catalytic activity/Vol]14 U/L10 - 30 U/LNOMS HealthcareBilirubin [Mass/Vol]0.6 mg/dL0.2 - 1.2 mg/dLNOCO HealthcareCalcium [Mass/Vol]9.3 mg/dL8.6 - 10.2 mg/dLNOCO HealthcareChloride [Moles/Vol]107 mmol/L 98 - 110 mmol/LNOMS HealthcareCO2 [Moles/Vol]24 mmol/L20 - 32 mmol/LNOMS HealthcareCortisol [Mass/Vol]14.3 ug/dLmcg/dLNOMS HealthcareComment on above: Reference Range: For 8 a.m.(7-9 a.m.) Specimen: 4.0-22.0 Reference Range: For 4 p.m.(3-5 p.m.) Specimen: 3.0-17.0 * Please interpret above results accordingly * Creatinine [Mass/Vol]0.71 mg/dL0.50 - 0.96 mg/dLNOCO HealthcareGFR/1.73 sq M.predicted among non-blacks MDRD (S/P/Bld) [Vol rate/Area]122 mL/min/{1.73_m2}> OR = 60 mL/min/1.47a0ACKT HealthcareGlobulin (S) [Mass/Vol]2.6 g/dLNOMS HealthcareGlucose [Mass/Vol]95 mg/dL65 - 99 mg/dLNOMS HealthcareComment on above: Fasting reference interval Potassium [Moles/Vol]4.2 mmol/L3.5 - 5.3 mmol/LNOMS HealthcareProtein [Mass/Vol] 7.4 g/dL6.1 - 8.1 g/dLNOCO HealthcareSodium [Moles/Vol]139 mmol/L135 - 146 mmol/LNOMS HealthcareUrea nitrogen [Mass/Vol]16 mg/dL7 - 25 mg/dLNOHermann Area District Hospital Urea nitrogen/Creatinine [Mass ratio]SEE NOTE:[facility] HealthcareComment on above: Not Reported: BUN and Creatinine are within reference range. Laboratory - Serology - non-microon 65-88-2668Avmrueztfswnh Ab Qn153 [IU]/mLHigh < or = 1 IU/mLNOMS HealthcareTPO Ab Qn27 [IU]/mLHighNINFEllett Memorial HospitalNo [facility] Informationon 24-13-7261Fxysuqgqruypht and review of laboratory resultsAbnormal [facility] Organization Information Site ID: QTW Name: [facility] Address: [address] [place] [id number] Director: Urvashi TaborSauk Prairie [facility] Organization Information Site ID: QPT Name: [facility] Address: [address] [place] [address], [address] [place] [address] Director: Yonis Beck MDAll[place] [address], [facility] 98-46-1553Iqhw T3 [Mass/Vol] 3.6 pg/mLNormal2.3-4.2Quest DiagnosticsComment on above:Performed By: #### 445, 62632, 866 #### [facility] [address], [address] [place] [address] Bolt Labeler: Yonis HEAD, [facility] 07-56-0005Jgco T4 [Mass/Vol]1.1 ng/dLNormal0.8-1.8Quest DiagnosticsComment on above:Order Comment: FASTING:NO FASTING: NOPerformed By: #### 777, 07933, 866 #### [facility] [address], [address] [place] [address] Bolt Labeler: Yonis MARAVILLAjolie 92-83-8879PKO Qn1.98 m[IU]/LNormalQuest DiagnosticsComment on above:Result Comment: Reference Range > or = 20 Years 0.40-4.50 Ranges First trimester 0.26-2.66 Second trimester 0.55-2.73 Third trimester 0.43-2.91Performed By: #### 899, 97759, 866 #### [facility] [address] [facility], [address] [place] [address] Bolt Labeler: Yonis Beck MDHCG ( test) IA.rapid Ql (U)Ordered By: Marcelle Espinosa on 94-37-0429BCA ( test) Ql (U)NegativeAshtabula General HospitalHCG,Urineon 22-76-1479Gsgx HCG ( test) Ql (U) NegativeNoHarris Regional Hospital Physician GroupComment on above:Result Comment: PERFORMED BY: [place] [address] PATHOLOGIST MECHANICAL COMMISSIONING ENGINEER RAYMOND SUERO M.D.Performed By: #### UHCG #### [place] [address] USALon 63-67-6134IFcygncgc: [id number] Received: 09/03/23 Status: FRANKLYN Recharley Num: [id number] Spec Type: Surgical Subm Dr: Marcelle Espinosa [...] Location Account Attending Physician Aleta Castro / [id number] Marcelle Espinosa DO SPEC NUM: [id number] RECD: 09/03/23 STATUS: FRANKLYN GONZALES NUM: [id number] MIRIAM: 09/02/23- SUBM DR: Marcelle Espinosa DO ENTERED: 09/03/[address]: SPEC TYPE: [...] mild squamous acanthosis and occasionally associated Specimen: [id number] Received: 09/03/23 Status: FRANKLYN Gonzales Num: [id number] Spec Type: Surgical Subm Dr: Marcelle Espinosa, Tissues: A Small Intestine - Biopsy/Polyp (SMALL BOWEL BX) B GASTRIC FOR HP (GASTRIC HP) C Esophagus Biopsy (DISTAL ESOPHAGUS) D Esophagus Biopsy (PROXIMAL ESOPHAGUS) E Colon Biopsy (RANDOM RT COLON) F Colon Biopsy (RANDOM LT COLON) Procedures: HE/12, Gross/Micro L4/6, H PYLORI, IHC First AB Patient: Aleta Castro N [id number] (Continued) Specimen: [id number] Received: 09/03/23 (Continued) Pathological Diagnosis (Continued) Signed (signature on file) Heather Villegas MD 09/05/23 1417 Specimen: [id number] Received: 09/03/23 Status: FRANKLYN Yassine Num: [id number] Spec Type: Surgical Subm Dr: Marcelle Espinosa DO Tissues: A Small Intestine - Biopsy/Polyp (SMALL BOWEL BX) B GASTRIC FOR HP (GASTRIC HP) C Esophagus Biopsy (DISTAL ESOPHAGUS) D Esophagus Biopsy (PROXIMAL ESOPHAGUS) E Colon Biopsy (RANDOM RT COLON) F Colon Biopsy (RANDOM LT COLON) Procedures: HE/12, Gross/Micro L4/6, H PYLORI, IHC First AB Patient: Aleta Castro N [id number] (Continued) Specimen: [id number] Received: 09/03/23 (Continued) Pathological Diagnosis (Continued) lymphocytic [...] entirely submitted (more content not included)...[facility] Physician GroupInsurance Correspondence Officeon 32-90-8350Uobyciwzl Correspondence [id number]#1.00TIFFNormal Markos [facility] CenterIntraOperative Documentson 75-89-9175AkvpfZenqsvtqk [id number]#1.00TIFFNormalMiddletown HospitalPostoperative Documentson 75-99-4457Dbwrvepxkzpyl Documents [id number]#1.00TIFFNoParkview HealthMain OR Intraoperative Recordon 89-35-8409Rhbc OR Intraoperative Record IntraOp Document Type FT Summary Primary Physician: Daniel LEACH Myron Washburn Finalized Date/Time: 04/25/23 09:04:33 Pt. Name: ALETA CASTRO/Sex: 2000 Female Med Rec #: [id number] Physician: Myron Marroquin DO Financial #: [id number] Pt. Type: A Room/Bed: [place] [address] Admit/Disch: 04/23/23 06:25:15 - 04/23/23 14:50:00 Institution: [...] block performed by using ultrasound guidance. RICHAR Clarkto assist with the block. Patient's heartrate 89, ni15-369% on room air. patient tolerated block well. [...] Haas Role Performed Anesthesiologist Surgeon - Primary Engrosser - Primary Plastering Supervisor Time In 04/23/23 08:50:00 04/23/23 09:15:00 04/23/23 08:50:00 Time Out 04/23/23 10:59:00 04/23/23 10:44:00 04/23/23 10:59:00 Procedure KNEE ARTHROSCOPY W/ ACL KNEE ARTHROSCOPY W/ ACL KNEE ARTHROSCOPY W/ ACL REPAIR(Left) REPAIR(Left) REPAIR(Left) Comments , anesthesia division road supervisor Last Modified By: Souleymane MCQUEEN, Lyle Comer RN, Lyle Comer RN, Lyle Haas 04/23/23 10:59:32 04/23/23 10:59:32 04/23/23 10:59:32 Entry 4 Entry 5 Entry 6 Case Attendee Regulo Rodgers Laura C Wilhelm CST, Benjamin Role Performed Staff - Other Scrub - Primary REAL ESTATE OFFICER/SA Time In 04/23/23 08:50:00 04/23/23 08:50:00 04/23/23 [...] FT Pre-Care Text: Implements (more content not included)...NormalMiddletown Hospital Consent for Anesthesiaon 80-67-8584Ytqinee for Anesthesia [id number]#1.00TIFAdams County Regional Medical CenterDischarge Instructionson 91-79-3544Zmsomrzts Instructions [id number]#1.00[facility] Medical CenterIntraOperative Documentson 53-59-0967SgqoyZmrbjwqdl Documents [id number]#1.00[facility] CenterOperative Reporton 06-35-7099Tasbtwoma ReportSURGERY DATE: 04/23/2023 STRATEGY LEAD: Garry Camacho CST PREOPERATIVE DIAGNOSIS: Left knee anterior cruciate ligament tear POSTOPERATIVE DIAGNOSIS: Left knee anterior cruciate ligament tear OPERATION: Left knee diagnostic operative arthroscopy with autograft bido-czkatu-lvkt anterior cruciate ligament reconstruction with InternalBrace augmentation ANESTHESIA: General as well as regional block ANESTHESIOLOGIST: KARTHIKEYAN Peacock ESTIMATED BLOOD LOSS: 10 mL INTRAVENOUS FLUIDS: Please see the operative record SPECIMEN: None COMPLICATIONS: None IMPLANTS: Arthrex [id number]-[id number]-xfqr Tightrope system with the button for the [...] The anterior cruciate ligament was reconstructed using egkd-mkzwfr-xezs from patellar tendon autograft with this InternalBrace [...] over reaming with a 10 mm barrel finisher. Excess bone debris is again removed. The [...] tensioned on the femo (more content not included)...NormalFisher Brewster Medical CenterComment on above:Result Comment: Electronically Signed By: Myron Marroquin DO\.br\Date and Time Signed: 04/24/23 07:15 ESTPreoperative Documentson 98-11-5772Xbjjciuarylv Documents [id number]#1.00TIFFCleveland Clinic Mentor HospitalConsent for Procedure/Surgeryon 42-61-7949W[place] for Procedure/Surgery [id number]#1.00TIFFNoParkview HealthConsent for Treatmenton 19-29-0927Jzylgcf for Treatment [id number]#1.00TIFAdams County Regional Medical CenterDischarge Instructionson 15-96-8423Efkwdevhx Instructions ALETA CASTRO :2000 Visit Date:04/23/2023 Inpatient [...] been scheduled. Call for any problems. Where: [address] [place] [address]- [facility] (1) Medications What How Much When Instructions Next Dose New acetaminophen-oxycodone (Percocet 5 mg-325 mg oral tablet) 1 Tablets By Mouth As Directed 1-2 po Q4-6h prn pain Dx: S83.512D Duration: [address] [facility]/pharmacy #2341 New aspirin (Ecotrin 325 mg Tab-EC) 1 Tablets By Mouth Every day Pickup at [facility]/pharmacy #[address] [facility]/pharmacy #2349: [address] [facility], [place] [phone] Allergies Banana (Throat tightness, Hives, Vomiting) Latex (Hives, Swelling) azithromycin (Hives) midodrine (Numbness) Education Materials [place], [place] [facility] DISCHARGE INSTRUCTIONS: ANTERIOR CRUCIATE [...] any concerns. Myron Marroquin DO [facility] [address] [place] [address] [phone] Reviewed: 06-23 Revised: 03/29 Common Emergency Awareness [...] please share your experie (more content not included)...[facility] System [facility] CampusComment on above:Result Comment: Electronically Signed By: Marcelo MQCUEEN, Shyla Acevedo\.ammy\Date and Time Signed: 04/23/23 10:58 ESTH&P Updateon 04-23-2023H&P [id number]#1.00TIFF [facility] Mentor HospitalMain OR PACU I Recordon 85-39-2058Irse OR PACU I RecordPACU Phase I Document Type FT Summary Primary Physician: Myron Marroquin DO Finalized Date/Time: 04/23/23 12:22:33 Pt. Name: ALETA CASTRO/Sex: 2000 Female Med Rec #: [id number] Physician: Myron Marroquin DO Financial #: [id number] Pt. Type: A Room/Bed: [place] [address] Admit/Disch: 04/23/23 06:25:15 - Institution: Case Times [...] Signatures Signed By: Valencia Jimenez RN 04/23/23 12:22NoParkview HealthMain OR Preoperative Recordon 01-26-8721Ybly OR Preoperative RecordPreOp Document Type FT Summary Primary Physician: Myron Marroquin DO Finalized Date/Time: 04/23/23 08:50:41 Pt. Name: ALETA CASTRO /Sex: 2000 Female Med Rec #: [id number] Physician: Myron Marroquin DO Financial #: [id number] Pt. Type: A Room/Bed: [facility] Admit/Disch: 04/23/23 06:25:15 - Institution: Case Times [...] Signatures Signed By: Lyle Comer RN 04/23/23 08:50NoParkview HealthMonitor Record on 37-43-4559Xvfbnai [id number]#1.00TIFF [facility] Mentor HospitalOperative Reporton 11-19-5895Mkyfiqpzm Report Patient: ALETA CASTRO Age: 22 years [...] Using maximal sterile barrier technique per current [facility] guidelines including hand hygeine, Guidance (Ultrasound used [...] The patient tolerated the procedure as expected.Normal [facility]own HospitalComment on above:Result Comment: Electronically Signed By: [facility] ()Cyrus.br\Date and Time Signed: 04/23/23 07:56 ESTPatient Education - Texton 05-26-9734Uljmnfj Education - Text [place], [place] [facility] DISCHARGE INSTRUCTIONS: ANTERIOR CRUCIATE [...] any concerns. Myron Marroquin DO [facility] [address] [place] [address] Reviewed: 06-23 Revised: 03/29C[facility] Mentor HospitalProgress Note-Physicianon 54-17-0387Thlpxyzy Note-PhysicianPatient: ALETA CASTRO Age: 22 years Sex: [...] Daily, # 21 tab(s), Refills(s) 0, Pharmacy: [facility]/pharmacy #2345, 165, cm, 04/04/23 6:11:00 EST, Height/Length Dosing, 78, kg, 04/04/23 6:11:00 EST, Weight Dosing Percocet 5 mg-325 mg oral tablet: 1 tab(s), Oral, As Directed, 40 tab(s), Refill(s) 0, 1-2 po Q4-6hprn pain Dx: S83.512D Duration: 7 days, [facility]/pharmacy #2345, 165, cm, 04/04/23 6:11:00 EST, Height/Length Dosing, 78, kg, 04/04/23 6:11:00 EST, Weight Dosing, Home Medications (2) Active Ecotrin 325 mg Tab-EC 325 mg = 1 tab(s), Oral, Daily Percocet 5 mg-325 mg oral tablet 1 tab(s), Oral, As Directed Problem list: All Problems H/O: hypothyroidism / SNOMED CT 257395077 / Confirmed POTS (postural orthostatic tachycardia syndrome) / SNOMED CT 0190242014 / Confirmed Physical Examination Vital Signs 04/23/2023 [...] 1 (more content not included)... [facility] Mentor HospitalComment on above:Result Comment: Electronically Signed By: [facility] Cyrus ELACH\.br\Date and Time Signed: 04/23/23 11:06 ESTProgress Note-PhysicianPatient: ALETA CASTRO Age: 22 years Sex: Female : 2000 Associated Diagnoses: None Author: Myron Marroquin DO Postoperative Information Procedure: L knee scope, ACL recon Preoperative Diagnosis: L ACL tear. Postoperative Diagnosis: same. Performed by: daniel. Plastering Supervisor: Roby Camacho. Specimens Removed: none. Prosthesis: Arthrex. . Estimated Blood Loss: 10 ml. Complications: None. Anesthesia type: General, block.C[facility] Clinic Mentor HospitalComment on above:Result Comment: Electronically Signed By: Myron Marroquin DO\.br\Date and Time Signed: 04/23/23 10:54 ESTProgress Note-PhysicianPatient: ALETA CASTRO Age: 22 years Sex: Female : 2000 Associated Diagnoses: None Author: [facility] ANDREA)Cyrus Preoperative Information Anesthesia history: Patient history: None. [...] Daily, # 21 tab(s), Refills(s) 0, Pharmacy: [facility]/pharmacy #2345, 165, cm, 04/04/23 6:11:00 EST, Height/Length [...] All Problems H/O: hypothyroidism / SNOMED CT 846985761 / Confirmed POTS (postural orthostatic tachycardia syndrome) / SNOMED CT 8619055759 / Confirmed, Active Problems (2) H/O: hypothyroidism POTS (postural orthostatic tachycardia syndrome) Histories Past Medical History: No active or resolved past medical history items have been selected or recorded. Family History: No family history items have been selected or recorded. Procedure history: Laparoscopic left ovarian R/o (8620571908). Ovarian cyst removal ([id number]). Social History Social & Psychosocial Habits Alcohol [...] U beta hCG Ql Negative . Plan [place] [employer] Anesthesiologists (ASA) physical status classification: Class II. Anesthetic Preoperative Plan: Anesthesia General. Regional Adductor Canal Block Left.[facility] Clinic Mentor HospitalComment on above:Result Comment: Electronically Signed By: [facility] ()Cyrus\.br\Date and Time Signed: 04/23/23 07:41 ESTU BetaHcg Qualon 80-01-7593SSE.beta subunit (U) [Moles/Vol]NegativeNoParkview HealthComment on above:Performed By: #### [id number] ####[facility] Hgiuazjoam[address] Gonsalessaint francis hospital & medical centeranuS[place], [place] [address]Oeuoqmy for Procedure/Surgery on 33-04-3914Wsnccuz for Procedure/Surgery [id number]#1.00TIFFNoParkview HealthCB w/ Auto Diffon 99-22-4181Kmyridxm Absolute0.0 E9/LNormal0.0-0.2Fisher [facility] Medical CenterComment on above:Performed By: #### [id number] ####[place] [address] [address]Jfrzgcwpt/100 WBC (Bld)0.4 %Normal0.0-2.0Middletown HospitalComment on above:Performed By: #### [id number] ####[address] [address]Hsv Absolute0.1 E9/LNormal0.0-0.5FWadsworth-Rittman HospitalComment on above:Performed By: #### [id number] ####[address] [address]Spuqzctwoxu/100 WBC (Bld)1.0 %Normal0.0-8.0Middletown HospitalComment on above:Performed By: #### [id number] ####[address] [address]Yxtunhocwkv distribution width (RBC) [Ratio]12.6 %Wrmaec35.9-14.2FWadsworth-Rittman Hospital Comment on above:Performed By: #### [id number] ####[address] [address]Vdcwfcdlbh (Bld) [Volume fraction] 39.0 %Iykaqs06.0-46.0Middletown HospitalComment on above:Performed By: #### [id number] ####[address] [address]Zkdsgpfhhi (Bld) [Mass/Vol]13.1 g/lGFirkbi11.0-16.0Middletown HospitalComment on above:Performed By: #### [id number] ####[address] [address]Bbiig Absolute1.4 E9/LNormal 1.0-4.0Middletown HospitalComment on above:Performed By: #### [id number] ####[address] [address] Lymphocytes/100 WBC (Bld)22.2 %Wrgyoo52.0-50.0M[facility]letown HospitalComment on above:Performed By: #### [id number] ####[address] [address]THR (RBC) [Entitic mass]30.6 pgNormal 27.0-34.0Middletown HospitalComment on above:Performed By: #### [id number] ####[address] [address]UPNX (RBC) [Mass/Vol]33.7 g/rZZpbzoe88.4-36.0M[facility]own HospitalComment on above:Performed By: #### [id number] ####[address] [address]CDV (RBC) [Entitic vol]91.0 zVDdvjnd49.0-100.0 Middletown HospitalComment on above:Performed By: #### [id number] ####[address] [address]Afjx Absolute0.4 E9/LNormal0.2-1.0M[facility]letown HospitalComment on above: Performed By: #### 4608301 ####[address] [address]Ddqpfmkxl/100 WBC (Bld)5.6 %Normal4.0-14.0M[facility]letown HospitalComment on above:Performed By: #### [id number] ####[address] [address]Pkdolt Absolute4.6 E9/LNormal2.0-7.5FWadsworth-Rittman HospitalComment on above:Performed By: #### [id number] ####[address] [address]Dtjqbn Auto70.8 %Uhemva56.0-75.0M[facility]letown HospitalComment on above:Performed By: #### [id number] ####[address] [place], [place] [address]Oiospbmi261.0 E9/CXulfeh255.0-500.0M[facility]letown HospitalComment on above:Performed By: #### [id number] ####[place] [place] [address] [place], [place] [address]Smflhtpj mean volume (Bld) [Entitic vol]7.7 fLNormal6.4-10.8M[facility]letown HospitalComment on above:Performed By: #### [id number] ####[place] [address] [address]XZY5.3 E12/LNormal4.3-5.9M[facility]letown HospitalComment on above:Performed By: #### [id number] ####[place] [address] [address]TYQ2.5 E9/LNormal4.0-11.0 [facility]letown HospitalComment on above:Performed By: #### [id number] ####[place] [address] [address] Consent for Treatmenton 89-88-0776Icfgoqc for Treatment [id number]#1.00TIFFNoParkview HealthHEMATOLOGYOrdered By: SYSTEM SYSTEM on 51-83-6272Thinvopm Absolute0.0 E9/L Normal0.0 - 0.2 E9/LRemisol HemeBasophils/100 WBC (Bld)0.4 %Normal0.0 - 2.0 % Remisol HemeEos Absolute0.1 E9/LNormal0.0 - 0.5 E9/LRemisol HemeEosinophils/100 WBC (Bld)1.0 %Normal0.0 - 8.0 %Remisol HemeErythrocyte distribution width (RBC) [Ratio]12.6 %Icxqjo71.9 - 14.2 %Remisol HemeHematocrit (Bld) [Volume fraction] 39.0 %Oocory53.0 - 46.0 %Remisol HemeHemoglobin (Bld) [Mass/Vol]13.1 g/dLNormal 12.0 - 16.0 gm/dLRemisol HemeLymph Absolute1.4 E9/LNormal1.0 - 4.0 E9/LRemisol HemeLymphocytes/100 WBC (Bld)22.2 %Mtemoy66.0 - 50.0 %Remisol HemeMCH (RBC) [Entitic mass]30.6 mcXkbqdi48.0 - 34.0 pgRemisol HemeMCHC (RBC) [Mass/Vol]33.7 g/mEAcvnhc41.4 - 36.0 gm/dLRemisol HemeMCV (RBC) [Entitic vol]91.0 iJJijtnj47.0 - 100.0 fLRemisol HemeMono Absolute0.4 E9/LNormal0.2 - 1.0 E9/LRemisol Heme Monocytes/100 WBC (Bld)5.6 %Normal4.0 - 14.0 %Remisol HemeNeutro Absolute4.6 E9/LNormal2.0 - 7.5 E9/LRemisol HemeNeutro Auto70.8 %Hyhenn75.0 - 75.0 %Remisol RhkdBldynnrl472.0 E9/WBitnsr744.0 - 500.0 E9/LRemisol HemePlatelet mean volume (Bld) [Entitic vol]7.7 fLNormal6.4 - 10.8 fLRemisol HemeRBC4.3 E12/LNormal4.3 - 5.9 E12/LRemisol HemeWBC6.5 E9/LNormal4.0 - 11.0 E9/LRemisol HemeCOVID/FLU/RSV RT-PCRon 09-37-5116JTZR-CoV-2 (COVID-19) RNA QUEENIE+probe Ql (Unsp spec)Negative [place] Génie Numérique Other COVID/FLU/RSV RT-PCRNegativeHealth Plotter Génie Numérique Other Quick Strepon 04-01-2023S. pyogenes Org specific cx Ql (Throat)NegativeAlexandria Génie Numérique Other Quick StrepSL Pathology [employer] Other [place] Gallbladderon 48-06-6152GU GallbladderClinical History: Right upper quadrant pain. Diarrhea. [...] and signed by Cornelius Hernandez on 07/23/2022 1043NoalAdena Fayette [facility] ACOG PANEL 2: 21 to on 05-09-2022..NormalPromedica Bay Park HospitalComment on above:Performed By: #### [id number] #### [facility] [address] [place] [address] Dr. Yovanny VillegasAge Gdln ACOG Pfnyyff80-49AhutzqQ[address]Mer[address] Health [address] Elizabeth Boardman HospitalComment on above:Performed By: #### [id number] #### [facility] [address] [place] [address] Dr. Yovanny VillegasDIAGNOSIS:CommentNoSt. Rita's Hospital on above: Result Comment: NEGATIVE FOR INTRAEPITHELIAL LESION OR MALIGNANCY.Performed By: #### [id number] #### [facility] [address] [place] [address] Dr. Yovanny VillegasMethodology:CommentNormACMC Healthcare Systemment on above: Result Comment: This liquid based ThinPrep(R) pap test was screened with the use of an image guided system.Performed By: #### [id number] #### [facility] [address] [place] [address] Dr. Yovanny VillegasNote:CommentTrinity Health System Twin City Medical Center on above:Result Comment: The Pap smear is a screening test designed to aid in the detection of premalignant and malignant conditions of the uterine cervix. It is not a diagnostic procedure and should not be used as the sole means of detecting cervical cancer. Both false-positive and false-negative reports do occur. .Performed By: #### [id number] #### [facility] [address] [place] [address] Dr. Yovanny VillegasPerformed by:CommentTrinity Health System Twin City Medical Center on above: Result Comment: Deedee Navarrete, Industrial Cafeteria Manager (ASCP)Performed By: #### [id number] #### [facility] [address] [place] [address] Dr. Yovanny VillegasReflex Criteria:CommentTrinity Health System Twin City Medical Center on above:Result Comment: The HPV DNA reflex criteria were not met with this specimen result therefore, no HPV testing was performed. .Performed By: #### [id number] #### [facility] [address] [place] [address] Dr. Yovanny VillegasSpecimen adequacy:CommentTrinity Health System Twin City Medical Center on above:Result Comment: Satisfactory for evaluation. Endocervical and/or squamous metaplastic cells (endocervical component) are present.Performed By: #### [id number] #### [facility] [address] [place] [address] Dr. Yovanny VillegasCHLAMYDIA/GONOCOCCUS QUEENIE (SWAB/URINE/PAPon 85-61-9286Kifgiveea trachomatis, NAANegativeNormalNegativePromedica Bay Park HospitalComascension standish hospital on above: Performed By: #### CT/NGNA #### [facility] [address] [place] [address] Dr. Yovanny VillegasNeisseria gonorrhoeae, NAANegativeNormalNegativePromedica Bay Park HospitalComascension standish hospital on above:Performed By: #### CT/NGNA #### [facility] [address] [place] [address] Dr. Yovanny VillegasVAGINITIS/VAGINOSIS DNA PROBEon 19-25-7180Tkkinkd speciesNegative NormalNegativePromedica Bay Park HospitalComascension standish hospital on above:Performed By: #### VAGINT #### [facility] [address] [place] [address] Dr. Yovanny VillegasGardnerella vaginalisNegativeNormalNegativePromedica Bay Park Hospital Comment on above:Performed By: #### VAGINT #### [facility] [address] [place], [place] [address] Dr. Yovnany VillegasTrichomonas vaginalisNegativeNormalNegativePromedica Bay Park Hospital Comment on above:Performed By: #### VAGINT #### [facility] [address] [place], [place] [address] Dr. Yovanny VillegasXR KNEE LEFT (3 VIEWS)on 15-68-8089AH KNEE LEFT (3 VIEWS) EXAMINATION: THREE XRAY [...] Signed by: Deshaun Aguilar MD 05/24/21 Final resultNoOhioHealth Van Wert HospitalNo fracture or dislocation. [facility] CONSOLIDATEDEXAMINATION: THREE XRAY VIEWS OF THE LEFT KNEE 05/24/2021 8:48 pm COMPARISON: None. HISTORY: ORDERING SYSTEM PROVIDED HISTORY: pain eval occult bony injury TECHNOLOGIST PROVIDED HISTORY: pain eval occult bony injury FINDINGS: No fracture, dislocation, or focal osseous lesion is noted. No significant soft tissue abnormality seen. [facility] Deshaun Abdul MD - 05/24/2021 EXAMINATION: THREE XRAY VIEWS OF THE LEFT KNEE 05/24/2021 8:48 pm COMPARISON: None. HISTORY: ORDERING SYSTEM PROVIDED HISTORY: pain eval occult bony injury TECHNOLOGIST PROVIDED HISTORY: pain eval occult bony injury FINDINGS: No fracture, dislocation, or focal osseous lesion is noted. No significant soft tissue abnormality seen. IMPRESSION: No fracture or dislocation. [employer] Phone: radiology Study observation (narrative)[employer] Phone: XR KNEE LEFT (3 VIEWS)Ordered By: Deshaun Aguilar on 72-62-1474Xnpll Health Work Phone: COVID Quick Testingon 01-93-8007AslsioXrgnublgGirtl [place] Other Quick Strepon 05-01-2021. pyogenes Org specific cx Ql (Throat)PositiveHarborview Medical Center [place] Other Quick StrepNoWellSpan Health [employer] Other COVID Quick Testingon 15-59-8211YafbowWoimhqcbSwrcu [place] [employer] Other Quick Fluon 74-66-8528DAIHA Ab CF (S) [Titer]Negative [facility] [employer] Other FLUBV Ab CF (S) [Titer]NegativeHarborview Medical Center [employer] Other XR SACRUM COCCYX (MIN 2 VIEWS)on 13-31-1179AX SACRUM COCCYX (MIN 2 VIEWS)EXAMINATION: THREE XRAY VIEWS OF THE SACRUM/COCCYX 12/14/2020 3:10 am COMPARISON: None. HISTORY: ORDERING SYSTEM PROVIDED HISTORY: fall at work - hit byjbo8jf TECHNOLOGIST PROVIDED HISTORY: fall at work - hit rtoiy0go FINDINGS: The sacroiliac joints are normally aligned. The visualized portions the pelvis are. There is no fracture of the sacrum or coccyx evident. IMPRESSION: No acute osseous abnormality of the sacrum or coccyx evident. Interpreted by: Loc Oswald MD Signed by: Loc Oswald MD 12/14/20 Final resultNormalMercy Veterans Administration Medical CenterXR SACRUM COCCYX (MIN 2 VIEWS)Ordered By: David Dominguez on 79-09-1571Jz acute osseous abnormality of the sacrum or coccyx evident.[employer] Phone: eXAMINATION: THREE XRAY VIEWS OF THE SACRUM/COCCYX 12/14/2020 3:10 am COMPARISON: None. HISTORY: ORDERING SYSTEM PROVIDED HISTORY: fall at work - hit gguqt3kq TECHNOLOGIST PROVIDED HISTORY: fall at work - hit ndpfk2lm FINDINGS: The sacroiliac joints are normally aligned. The visualized portions the pelvis are. There is no fracture of the sacrum or coccyx evident. [employer] Phone: eEthan mclean Incoming Radiant Results From [employer] - 12/14/2020 3:24 AM EDT EXAMINATION: THREE XRAY VIEWS OF THE SACRUM/COCCYX 12/14/2020 3:10 am COMPARISON: None. HISTORY: ORDERING SYSTEM PROVIDED HISTORY: fall at work - hit nhqpc9us TECHNOLOGIST PROVIDED HISTORY: fall at work - hit ufypp8nl FINDINGS: The sacroiliac joints are normally aligned. The visualized portions the pelvis are. There is no fracture of the sacrum or coccyx evident. IMPRESSION: No acute osseous abnormality of the sacrum or coccyx evident. [employer] Phone: [facility] District HospitalDeliveryCheetah Phone: ct HEAD WO CONTRASTon 11-26-3092LQ HEAD WO CONTRAST EXAMINATION: CT OF THE [...] Signed by: Maira Cruz MD 09/19/20 Final resultNormalUniversity Hospitals Ahuja Medical Center Head WO ContrastOrdered By: Luis Carlos Fragoso on 51-40-7043Wmaplvaucotw noncontrast CT examination of the brain.[employer] Phone: eXAMINATION: CT OF THE HEAD WITHOUT [...] abnormality of the visualized skull or soft tissues.[employer] Phone: evinay Rust Incoming Radiant Results From [employer] - 09/19/2020 4:42 PM EDT EXAMINATION: CT [...] Unremarkable noncontrast CT examination of the brain. [employer] Phone: [facility] HospitalDeliveryCheetah Phone: coding Summaryon 12-70-4591Gcitrb SummaryCODING DATE: 10/27/2019 [facility] STATUS: Home PAYOR: [employer] ADMIT DX: REASON FOR VISIT DX: J02.9 [...] By: Ashley Pablo Date Saved: 10/27/2019 03:10 pmNLima City Hospital2019 Novel Coronavirus (CoVID-19), QUEENIE LCon 66-27-8491AFFY-CoV-2, QUEENIE (COVID-19) LCNot DetectedNot [facility] Medical CenterComment on above:Order Comment: [id number] Comment: This test was developed and its performance characteristics determined by [employer]. This test has not been FDA cleared [...] detected) result in this assay. Performed At: [facility] [address] [facility], [place] [address] Ruba Washburn MD Ph:[phone] By: #### [id number] #### [facility] (DEFAULT) [address] [place], [place] [address]Myvushw Formson 39-48-4183Wokcsqh Forms [id number]#1.00OTGTIFFMiami Valley HospitalCNCO on 11-92-1967CUXQAmlwmr TextToll Free: [phone].[facility].org/cancer [facility] - Foeotupx[address] [place], [place] [address]Qobji: [phone]: [facility] - Qpoti[address] [place], [place] [address]Sqfpf: [phone]: [facility] Centerk[address] [place], [place] [address]Lvijz: [phone]: Steve Pablo M.D., oRnaldo Marquez M.D.David Becerril M.D.Papito Sood D.O..Carin Hoover M.D. FACROSaju A. Rajan, M.D.Date: July 15, 2017Re: Aleta GarayTO WHOM IT MAY CONCERN:She was seen in our office today.Sincerely,Katelin Cardona PSR(signed electronically to expedite mailing)[facility] Medical CenterCNOVSPon 60-30-6617EDIBPNPhqky (SP) Office (HEMACL) --------TANISHASUMMER ([id number]) 99 FDate Time Provider Department07/15/17 3:15 PM MIAN BECERRIL HEMACL During your visit today, we [...] nourishedNeuro: Gait normal.Collected: 05/15/17 104 3Resulting lab: [facility] LABORATORYValue: (NOTE)Comment: Performing Pathologist: Jo-Ann [...] testingAlGordy Lorenz 07/15/2017 3:10 PM SignedPatient went overmedication list. no changes .Referring Provider: DAVID BECERRIL [[id number]]Allergies As of Date: 07/15/2017(No Known Allergies)Date Reviewed: [...] .Encounter Status:Closed by DAVID BECERRIL MD on 07/17/17[facility] 43-97-1163LQYLCPALXVW ID: [id number]: David LylessService: (none)Author Type: PhysicianType: Progress NotesFiled: [...] well nourishedNeuro: Gait normal.Collected: 05/15/17 1043Resulting lab: [facility] LABORATORYValue: (NOTE)Comment: Performing Pathologist: Jo-Ann Sesay M.D., [...] developany issues certainly could consider further testingAlfred Kavon BaroneCleveland Clinic Euclid HospitalPlatelet [facility] Scrnon 54-43-0515TUC/ADP Yfxqobfyk40 CT (sec) Normal<118CleLancaster Municipal Hospital on above:Result Comment: Results are reported as Closure Time (CT) in seconds.Performed By: #### PLTSCP ####[facility] [address] [place], [place] [address]-0 44-5755COL/EPI Ssdiuypru436 CT (sec)Normal<199CleLancaster Municipal Hospital on above:Result Comment: Results are reported as Closure Time (CT) in seconds. Performed By: #### PLTSCP ####[facility] Autsoybntpyd[address] [place], [place] [phone] [facility] Greensboroc Scr Interp(NOTE)NormalCleLancaster Municipal Hospital on above:Result Comment: Performing Pathologist: Jo-Ann Sesay [...] a bleeding disorder. Performed By: #### PLTSCP ####[address] [phone] CBCDIF (for [facility] use only)on 53-39-0330Ufb Baso<0.03Normal<0.11CMercy [facility] on above: Performed By: #### RCBCDF ####[place] [phone] Mono0.53 k/uLNormal<0.87[facility] on above:Performed By: #### RCBCDF ####[address] [place], [place] [phone] Neut2.59 k/uL Normal1.45-7.50[facility] on above:Performed By: #### RCBCDF ####[address] [phone]/100 WBC Auto (Bld)0.4 %NormalAultman Orrville [facility] on above:Performed By: #### RCBCDF ####[address], [place] [phone] DiffNormal [facility] on above:Performed By: #### RCBCDF ####[address] [place], [place] [phone] 10*3/uLNormal<0.46[facility] on above:Performed By: #### RCBCDF ####[address], [place] [phone]/100 leukocytes1.5 %Normal [facility] on above:Performed By: #### RCBCDF ####[place] [address], [place] [phone] 445755Erythrocyte distribution width Auto Ratio (RBC)12.2 %Cflyxn71.5-15.0 [facility] on above:Performed By: #### RCBCDF ####[place] [address] [address], [place] [phone] (RBC)4.15 10*6/uLNormal3.90-5.20[facility] on above:Performed By: #### RCBCDF ####[address], [place] [phone] (RBC)0.0 /100 WBCNormal 0[facility] on above:Performed By: #### RCBCDF ####[place] [address] [address], [place] [phone] (RBC)10*6/uLNormal<0.01[facility] on above:Performed By: #### RCBCDF ####[place] [address] [address], [place] [phone] (HCT)39.4 %Gvivrs38.0-46.0 [facility] on above:Performed By: #### RCBCDF ####[place] [address], [place] [phone] mass conc (Bld)12.8 g/tNPfmixf51.5-15.5CMercy [facility] on above:Performed By: #### RCBCDF ####[place] [address] [address], [place] [phone] 10*3/uLNormal1.00-4.00[facility] on above:Performed By: #### EVANDF ####[address] [place] [phone]/100 vaxatkipbu45.9 %NormalMagruder Hospitalment on above:Performed By: #### EVANDF ####[address] [place] [phone] pGNormal 26.0-34.0[facility] on above:Performed By: #### EVANDF ####[place] [phone]-[place] [facility]-0627MCHC mass conc (RBC)32.5 g/nXIllmom31.5-36.0[facility] on above:Performed By: #### EVANDF ####[place] [phone] lJFrvcip41.0-100.0[facility] on above:Performed By: #### EVANDF ####[place] [phone]/100 okcjyglxef78.6 %NormalAultman Orrville Hospital on above:Performed By: #### EVANDF ####[address] [place] [phone]/100 WBC Auto (Bld)56.6 %NormalMagruder Hospitalment on above:Performed By: #### EVANDF ####[address]ise [place] [phone] mean volume (PMV)10.2 fLNormal9.0-12.7CMercy Health [facility] on above:Performed By: #### EVANDF ####[place] [address] [place], [place] [phone] 10*3/cULwkejp892-155WcrhkhtqwHenry [facility] Hospital Comment on above:Performed By: #### RCBCDF ####[facility] [address] [place], [place] [phone] (Leukocytes)4.58 10*3/uLNormal 3.70-11.00[facility] HospitalComment on above:Performed By: #### RCBCDF ####[facility] [address] [place], [place] [phone] [phone] 95-55-0811AMTULcfqqz TextToll Free: [email or web address]/cancer [facility] - [address] [place] [address]Djwsq: [phone]: [facility] [place], [place] [address]Aewey: [phone]: [place] [address] [place], [place] [address]Ywymm: [phone]: Steve Pablo M.D., Ronaldo Marquez M.D.David Becerril M.D.Papito Sood D.O..Myriam Chaudhari M.D.Brie Ma M.D.Date: April 29, 2017Re: Aleta Elliott WHOM IT MAY CONCERN:She was seen in our office today.Sincerely,Karly Pizarro Psr(signed electronically to expedite mailing)[facility] CenterCNOVSPon [phone] (SP) Office (HEMACL) --------ALETA GARAY ([id number]) 99 FDate Time Provider Department04/29/17 2:30 PM MIAN BECERRIL During your visit today, we recorded the following information about you: Temperature Pulse Respiration Blood pressure 97.2 degrees 76/minute 18/minute 107/56 Weight Last Period 58.3 kg 04/15Alfred Sandeep Becerril MD 04/29/2017 3:56 PM SignedCHIEF COMPLAINT: [...] patientand her mother at length. Would check [id number] at this time, further testingbased on results.1. 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 Would check [id number] at this time, furthertesting based on results.1. 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, choice of management likely to be influenced by history ofPOTSAlfred Sandeep Becerril MDNormjelly [facility] Vital Signs Date TimeVital SignValuePerforming EglbqvuxfDmlksrft70-72-5906 13:04-0400Body mass index (BMI) [Ratio]29.59 kg/y1Yqznf William DO Work Phone: [phone] [place], [place] [address]Jdjrbuulnj29-01-3509 13:04-0400Body wgeryr13.2 kg Doc William DO Work Phone: [phone])[facility] [place], [place] [address]Qeewztcfbc42-73-6101 13:04-0400Diastolic blood bbvkmhoj97 mm[Hg]Doc William DO Work Phone: [phone])[facility] [place], [place] [address]Gdflhkbyut08-85-4919 13:04-0400Systolic blood naxvbism461 mm[Hg]Doc William DO Work Phone: [phone] [place], [place] 7294710-08-2025 13:57-0400Body mass index (BMI) [Ratio]29.42 kg/b2BhfawshsLuna Steen IMMUNOPATHOLOGIST Work Phone: [phone])[facility] [place], [place] [address]Rnqxfngmun61-04-9475 13:57-0400Body jtgzfe71.75 kgLuna Steen IMMUNOPATHOLOGIST Work Phone: [phone])[facility] [place], [place] [address]Tsfdyvhhfr01-34-0544 13:57-0400Diastolic blood wjgjalub68 mm[Hg]Luna Steen IMMUNOPATHOLOGIST Work Phone: 1([phone])[facility] [place], [place] [address]Rrrciiaahe55-78-8614 13:57-0400Systolic blood suzktrxl295 mm[Hg]Luna Steen IMMUNOPATHOLOGIST Work Phone: 1(958)[facility] [place], [place] [address]Vjvzjmjxtw21-65-8086 14:07-0400Body mass index (BMI) [Ratio]28.84 kg/g4Qyijn William DO Work Phone: [phone])[facility] [place], [place] [address]Pcienbuxui36-32-4597 14:07-0400Body fpcaua29.2 kg Doc William DO Work Phone: 1(473)[facility] [place], [place] [address]Bgzzhrpgdt62-74-6196 14:07-0400Diastolic blood jugstcaf11 mm[Hg]Doc William DO Work Phone: [phone])[facility] [place], [place] [address]Amfgxmtapg00-30-6846 14:07-0400Systolic blood wrocylgh847 mm[Hg]Doc William DO Work Phone: [facility] HospitalFxarnmluqr68-79-8796 14:04-0400Body mass index (BMI) [Ratio]29.95 kg/s7Ftgreluu Enio IMMUNOPATHOLOGIST Work Phone: [facility] HospitalCldpewqosc40-80-5427 14:04-0400Body gesjcc75.15 kgLuna Enio IMMUNOPATHOLOGIST Work Phone: [phone]-[facility] HospitalXzesqjtwhm79-91-6567 14:04-0400Diastolic blood oavhcouk82 mm[Hg]Luna Conraderly IMMUNOPATHOLOGIST Work Phone: [phone]-[facility] HospitalIbquakzerj95-17-9647 14:04-0400Systolic blood aowcfnbp528 mm[Hg]Luna Enio IMMUNOPATHOLOGIST Work Phone: [phone] [place], [place] [address]Dbfigrtcbj45-25-2642 14:39-0400Body mass index (BMI) [Ratio]28.49 kg/m2Pretty Chaidez PA Work Phone: [phone] [place], [place] [address]Qzlkrhtrko79-94-9251 14:39-0400Body cacpoj37.3 kg Pretty Chaidez PA Work Phone: [phone] [place], [place] [address]Jtepcfutpu89-28-7609 14:39-0400Diastolic blood ldjvtowc74 mm[Hg]Pretty Chaidez PA Work Phone: [phone])257-[address] [place], [place] [address]Ncpyshaghg37-83-6328 14:39-0400Systolic blood ogoknsdh760 mm[Hg]Pretty Chaidez PA Work Phone: [phone] [place], [place] [address]Lbjxcmlmft65-39-2737 15:34-0400Body mass index (BMI) [Ratio]28.29 kg/r7Oalxc William DO Work Phone: [phone])519-[address] [place], [place] [address]Kuecbufmag33-23-1923 15:34-0400Body guqfst42.75 kgCorey William DO Work Phone: [phone])844-[facility] HospitalIeljvhhrfw17-49-2672 15:34-0400Diastolic blood iwafoxda79 mm[Hg]Doc William DO Work Phone: [facility] HospitalAmcvusvxbh09-18-2615 15:34-0400Systolic blood mm[Hg]Doc William DO Work Phone: [facility] HospitalKkkjeqiaop48-93-1583 14:27-0400Body mass index (BMI) [Ratio]30.21 kg/h9Kltwj William DO Work Phone: [facility] HospitalVaheksrnaq79-51-9799 14:27-0400Body sujaot89.83 kgCorey William DO Work Phone: [facility] HospitalRudumcllis42-89-4289 14:27-0400Diastolic blood amgoyipi09 mm[Hg]Doc William DO Work Phone: [facility] HospitalQwbbuupysb41-70-7792 14:27-0400Systolic blood tercvlkk264 mm[Hg]Doc William DO Work Phone: [facility] HospitalWdgksizynw61-83-9766 15:41-0500Body zjynyw576.6 cmDavid Pocos DO Work Phone: [facility] HospitalFqbmmengau63-09-5860 15:41-0500Body mass index (BMI) [Ratio]30.21 kg/c0Uzwty Pocos DO Work Phone: [facility] HospitalSplbqsdieh44-68-4265 15:41-0500Body bfsvze11.83 kgDavid Pocos DO Work Phone: [facility] HospitalVhmudlwrab33-81-0966 15:26-0500Body paeuxt939.6 cmEtyshawn Payne MD Work Phone: [facility] HospitalOncvdtrehi87-39-6335 15:26-0500Body mass index (BMI) [Ratio]30.21 kg/k7HarrboRosalie Payne MD Work Phone: [facility] HospitalJjbydybnqr05-57-9515 15:26-0500Body .83 kgRosalie Payne MD Work Phone: [facility] HospitalCxjghzfcru16-14-3177 15:26-0500Heart rate88 /min Rosalie Payne MD Work Phone: [facility] HospitalYbsjezjilt19-31-0099 15:26-0823TkJ2% (BldA) [Mass fraction]98 %Rosalie Payne MD Work Phone: [facility] HospitalNxfzpuiczv28-65-6583 08:00-0400Body gymevg678.6 cmKelvin Schwartz DO Work Phone: [facility] HospitalKstlofbgno35-44-4073 08:00-0400Body mass index (BMI) [Ratio]30.9 kg/s5YbreaKelvin Schwartz DO Work Phone: [facility] HospitalTyennnipwi46-00-3682 08:00-0400Body .65 kgKelvin Schwartz DO Work Phone: [facility] HospitalXrkgmlgckh52-35-6724 14:25-0400Diastolic blood oornlvhz11 mm[Hg]MD Rosalie Payne Work Phone: [phone] [place], [place] 3362906-17-2024 14:25-0400 Heart rate80 /minMD Rosalie Payne Work Phone: [phone]06-17-2024 14:25-0400 Respiratory rate18 /minMD Rosalie Payne Work Phone: [phone])065-[address] [place], [place] 9840806-17-2024 14:25-0400 SaO2% (BldA) [Mass fraction]100 %MD Rosalie Payne Work Phone: [facility]06-17-2024 14:25-0400 Systolic blood eloyqdfw409 mm[Hg]MD Rosalie Payne Work Phone: 1([phone] [place], [place] 3362906-17-2024 11:31-0400 Body cktmjy752.1 cmMD Rosalie Payne Work Phone: [phone])631-[address] [place], [place] 9840806-17-2024 11:31-0400 Body bsrmlbimbfl75.4 [degF]MD Rosalie Payne Work Phone: [phone] [place], [place] 3362906-17-2024 11:31-0400 Body uqnxyb10.11 kgMD Rosalie Payne Work Phone: [phone] [place], [place] 9840805-09-2024 14:21-0400 Body egtwrz857.1 cm[facility]05-09-20[facility] 14:21-0400Body mass index (BMI) [Ratio]28.3 kg/q8UjgwzdglqAshtabula [facility]05-09-2024 14:21-0400Body .11 kgAs[facility]05-09-2024 14:21-0400Diastolic blood ceabeqdl23 mm[Hg][facility] 07-25-2023 14:21-0400Heart rate81 /min[facility] 07-25-2023 14:21-0400Systolic blood uoxfvxrj092 mm[Hg][facility]01-17-2024 14:55-0500Diastolic blood kwhvhxhe37 mm[Hg]Myron Marroquin [address]01-17-2024 14:55-0500Heart flia854 /minDleydi Caroos [address]01-17-2024 14:55-0500Mean blood ucypqnnk060 mm[Hg]Myron Caroos [address]01-17-2024 14:55-0500 Systolic blood ycfpsqae170 mm[Hg]Myron Caroos [address]01-17-2024 14:53-0500Heart rate98 /minDavidwight Pocos [address]01-17-2024 14:53-0066ZfH1% (BldA) [Mass fraction]99 %Myron Pocos [address]01-17-2024 14:53-0500 Diastolic blood nafulzjb99 mm[Hg]Myron Caroos [address]01-17-2024 14:53-0500Mean blood mm[Hg]Myron Caroos [address]01-17-2024 14:53-0500 Systolic blood mqjmukpm394 mm[Hg]Myron Caroos [address]01-17-2024 14:52-0500 Respiratory rate16 /minDavid Pocos [facility]01-15-2024 10:45-0500Body .1 cmAmanda Kristine Other [place] [employer] Other 01-15-2024 10:45-0500Body mass index (BMI) [Ratio] 28.29 kg/d1Hviftg Kristine Other [place] [employer] Other 01-15-2024 10:45-0500Body ydacltaoicj72.1 [degF]Destiene Kristine Other [place] [employer] Other 01-15-2024 10:45-0500Body igneuh62.11 kgAmanda Kristine Other [place] [employer] Other 01-15-2024 10:45-0500Respiratory rate18 /minAmanda Kristine Other [facility] Other 01-15-2024 10:45-7805YvC3% (BldA) [Mass fraction]99 % Destinee Kristine Other [employer] Other 06-06-2022 11:25-0400Body cfyckv275.1 Catyamela Martha Other [employer] Other 06-06-2022 11:25-0400Body mass index (BMI) [Ratio] 27.12 kg/z2Vplsfv Martha Other [employer] Other 06-06-2022 11:25-0400Body eptmezlaylc16.6 [degF]Carlie Thomas Other [facility] [employer] Other 06-06-2022 11:25-0400Body .94 kgCarlie Thomas Other [facility] [employer] Other 06-06-2022 11:25-0400Respiratory rate18 /minCarlie Thomas Other [facility] [employer] Other 06-06-2022 11:25-4959KjF2% (BldA) [Mass fraction]97 % Carlie Thomas Other [facility] [employer] Other 03-09-2022 20:36-0500Body cyadyfpaazs59.7 [degF]Artis Herithad DO Work Phone: [facility]Gate[facility] SystemRmakvr65-47-0139 20:36-0500Diastolic blood mm[Hg]Artis Herithad DO Work Phone: [facility] HospitalGate[facility] SystemRhzuia35-40-8192 20:36-0500Heart pkwc633 /min Artis Herithad DO Work Phone: [facility]Gate[facility] SystemWermvv07-42-3322 20:36-0500Respiratory rate16 /minArtis Carter DO Work Phone: [facility] HospitalGatekeeper SystemIolsos56-41-3756 20:36-2184LeD3% (BldA) [Mass fraction]97 %Artis Herithad DO Work Phone: [facility] HospitalGate[facility] SystemKzfefe09-14-5019 20:36-0500Systolic blood zpioqimd849 mm[Hg]Artis Yoder DO Work Phone: [facility] HospitalGate[facility] SystemJtwqwc88-80-5885 13:10-0500Body ieekzh199.1 cm Adriana Evangelista Other [facility] [employer] Other 02-24-2022 13:10-0500Body mass index (BMI) [Ratio] 27.12 kg/n0Zreeqnoqa Jean Carlos Other [employer] Other 02-24-2022 13:10-0500Body wgechusqwbu69.8 [degF] Adriana Garciaault Other [employer] Other 02-24-2022 13:10-0500Body dksmya85.94 kgStjen Garciaault Other [employer] Other 02-24-2022 13:10-0500Diastolic blood nkiiewkb28 mm[Hg] Adrinaa Jean Carlos Other [employer] Other 02-24-2022 13:10-0500Respiratory rate18 /minSanandasabinamarco Jean Carlos Other [employer] Other 02-24-2022 13:10-7443OxO9% (BldA) [Mass fraction]99 % Adriana Jean Carlos Other [employer] Other 02-24-2022 13:10-0500Systolic blood owreudue046 mm[Hg] Adriana Jean Carlos Other [employer] Other 02-14-2022 11:40-0500Body etempn566.1 Teresa Thomas Other [employer] Other 02-14-2022 11:40-0500Body mass index (BMI) [Ratio] 26.62 kg/q6AtbeyrCarlie Thomas Other [employer] Other 02-14-2022 11:40-0500Body .6 [degF]Carlie Thomas Other [employer] Other 02-14-2022 11:40-0500Body ibbjhm44.58 kgCarlie Thomas Other [employer] Other 02-14-2022 11:40-0500Respiratory rate18 /minCarlie Thomas Other [employer] Other 02-14-2022 11:40-1824QpE2% (BldA) [Mass fraction]99 % Carlie Thomas Other [employer] Other 01-21-2022 12:00-0500Body cxtsko683.1 cmCreyes Ramirez Other [employer] Other 01-21-2022 12:00-0500Body mass index (BMI) [Ratio] 26.62 kg/z4MrhnypSandeep Ramirez Other [employer] Other 01-21-2022 12:00-0500Body dnqkmctdgpe41.6 [degF]Sandeep Ramirez Other [employer] Other 01-21-2022 12:00-0500Body zcvpih14.58 kgSandeep Ramirez Other [employer] Other 01-21-2022 12:00-8172AzY8% (BldA) [Mass fraction]98 % Sandeep Ramirez Other [employer] Other 09-28-2021 23:25-0400Diastolic blood xnqoywpv80 mm[Hg] David Dominguez MD Work Phone: [facility] Work Phone: 1(773) 494-829009-28-2021 23:25-0400Systolic blood vsezdnhb826 mm[Hg] David Dominguez MD Work Phone: [facility] Work Phone: 1(815) 600-677809-28-2021 23:23-0400Body cfuotd163.1 Mira Dominguez MD Work Phone: [facility] Work Phone: 1(816) 977-324309-28-2021 23:23-0400Body mass index (BMI) [Ratio] 26.63 kg/h6FnxmrxtDavid Dominguez MD Work Phone: [facility] Work Phone: 1(400) 582-643509-28-2021 23:23-0400Body sqxpxudltxh27.29 [degF] David Dominguez MD Work Phone: [facility] Work Phone: 1(599) 487-484609-28-2021 23:23-0400Body kygjcw59.58 kgDavid Dominguez MD Work Phone: [facility] [employer] Work Phone: 1(202) 181-895909-28-2021 23:23-0400Heart rate79 /Sharon Dominguez MD Work Phone: [facility] Work Phone: 1(172) 214-161209-28-2021 23:23-0400Respiratory rate14 /Sharon Dominguez MD Work Phone: [facility] [employer] Work Phone: 1(124) 848-244309-28-2021 23:23-5200MvR9% (BldA) [Mass fraction]99 % David Dominguez MD Work Phone: [employer] Work Phone: 1(545) 154-516207-05-2021 15:56-0400Body uasnxeoodov24.6 [degF][employer] Work Phone: 1(131) 998-130607-05-2021 15:56-0400Diastolic blood jrvyxeem68 mm[Hg] [employer] Work Phone: 1(662) 133-112607-05-2021 15:56-0400Heart nxol377 /minT[employer]Touch Technologies Work Phone: 1(863) 269-960307-05-2021 15:56-0400Respiratory rate16 /minT[employer] Work Phone: 1(836) 163-669707-05-2021 15:56-2416AbM7% (BldA) [Mass fraction]100 % [employer] Phone: 1(556) 339-411607-05-2021 15:56-0400Systolic blood xbuvcytk698 mm[Hg] [employer] Phone: Encounters Encounter DateEncounter TypeCare ProviderFacilityStart: 01-05-2025 End: 47-84-2003Uucozo flowsheetCorey William DO Work Phone: [facility] [place] [facility]YNStart: 01-05-2025 End: 50-59-0704Slhwxl flowsheetCorey William DO Work Phone: [facility] [facility]BGYNStart: 01-05-2025 End: 24-36-8361Jscgurlt flow sheetCorey William DO Work Phone: [facility] [place] OBGYNComment on above:Third trimester ([facility]); 33 weeks gestation of ([facility])Start: 01-05-2025 End: 29-39-1141suuckhpgneAYEBH FAZIONot AvailableStart: 01-02-2025 End: 22-62-0572Mzarbykjw Result EncounterGeneric External Data ProviderNOMS External Department UnsolicitedStart: 01-02-2025 End: 36-69-7355Pvezscjzg Result EncounterGeneric External Data ProviderNOMS External Department UnsolicitedStart: 12-26-2024 End: 43-20-8941Rjxrxzcix Result EncounterGeneric External Data ProviderNOMS External Department UnsolicitedStart: 12-26-2024 End: 48-91-7038Zpannqfqu Result EncounterGeneric External Data ProviderNOMS External Department UnsolicitedStart: 12-23-2024 End: 64-63-3060Tznkqd flowsRuss Steen IMMUNOPATHOLOGIST Work Phone: [facility]YNStart: 12-23-2024 End: 84-31-4474Esrxrv flowsheetLuna Steen IMMUNOPATHOLOGIST Work Phone: [facility] [facility]BGYNStart: 12-23-2024 End: 19-91-1121Gnukxqel flow sheetLuna Steen IMMUNOPATHOLOGIST Work Phone: [phone] OBGYNComment on above:Third trimester ([facility]); 31 weeks gestation of ([facility])Start: 12-23-2024 End: 25-44-6667akduzwplfsZHIHJZHG EBERLYNot AvailableStart: 12-09-2024 End: 10-56-2941Hujvij flowsheetCorey William DO Work Phone: [phone] [place] [facility]BGYNStart: 12-09-2024 End: 53-39-1969Ysihue flowsheetCorey William DO Work Phone: [facility]BGYNStart: 12-09-2024 End: 84-42-0346Xuoliiht flow sheetCorey William DO Work Phone: [facility]BGYNComment on above:Third trimester ([facility]); 29 weeks gestation of ([facility]); Yeast infectionStart: 12-09-2024 End: 97-51-0876krrqgccwbdUPWVX FAZIONot AvailableStart: 11-27-2024 End: 26-42-0241grreyrzmorYNPPMAccess Hospital Daytontart: 11-25-2024 End: 51-93-3938Jvfdgb Cody Steen IMMUNOPATHOLOGIST Work Phone: [phone] [place] [facility]BGYNStart: 11-25-2024 End: 18-37-0061Udolyp flowsRuss Steen IMMUNOPATHOLOGIST Work Phone: [phone] [place] [facility]BGYNStart: 11-25-2024 End: 04-02-3464Aljnilna flow sheetLuna Steen NP Work Phone: [facility] OBGYNComment on above:Second trimester ([facility]); 27 weeks gestation of ([facility]); Evan's diseaseStart: 11-25-2024 End: 69-26-8502qqljfjasoiJXITCEJR EBERLYNot AvailableStart: 11-24-2024 End: 97-09-1450Xwqdnlgla Result EncounterGeneric External Data ProviderNOMS External Department UnsolicitedStart: 11-24-2024 End: 39-95-0321Svzgoywvn Result EncounterGeneric External Data ProviderNOMS External Department UnsolicitedStart: 11-12-2024 End: 26-37-3239Bgrpwbbqz Result EncounterGeneric External Data ProviderNOMS External Department UnsolicitedStart: 11-12-2024 End: 62-67-6418Mgwcelqws Result EncounterGeneric External Data ProviderNOMS External Department UnsolicitedStart: 11-03-2024 End: 47-54-0573Dommvdjzx Result EncounterGeneric External Data ProviderNOMS External Department UnsolicitedStart: 11-03-2024 End: 03-10-4549Smwuwxviu Result EncounterGeneric External Data ProviderNOMS External Department UnsolicitedStart: 10-28-2024 End: 14-87-1874Esipinp encounter procedurePretty ARELLANO Work Phone: [facility] HealthcareStart: 10-28-2024 End: 75-60-3232Pmfbjrdn flow Arsenio ARELLANO Work Phone: [facility] [place] OBGYNComment on above:Second trimester ([facility]); 23 weeks gestation of ([facility]); Diabetes mellitus screening; STD exposure; Well woman exam with routine gynecological exam; Heart palpitationsStart: 10-28-2024 End: 57-26-1566ptininvpkyRHT RAMEYNot AvailableStart: 10-28-2024 End: 86-22-4048Ssfhrg Herson ARELLANO Work Phone: [facility]BGYNStart: 10-28-2024 End: 86-74-9192Oocgof Herson ARELLANO Work Phone: [facility] [place] OBGYNStart: 10-28-2024 End: 63-51-6767Kryyvegzd Result EncounterGeneric External Data ProviderNOMS External Department UnsolicitedStart: 10-28-2024 End: 26-94-9217Iweyyiuc Result EncounterLuna Steen NP Work Phone: NOQF External Department UnsolicitedStart: 10-06-2024 End: 34-72-9674Ywjpswkvs Result EncounterCorey William DO Work Phone: noms External Department UnsolicitedStart: 10-06-2024 End: 32-82-0836Piuarhsuc Result EncounterCorey William DO Work Phone: noms External Department UnsolicitedStart: 09-30-2024 End: 52-46-9479Rmxzlfmf flow sheetCorey William DO Work Phone: noms BCP OBComment on above:19 weeks gestation of ([facility]); Second trimester ([facility])Start: 09-30-2024 End: 15-68-5363bxzkeudnodTTPBY FAZIONot AvailableStart: 09-28-2024 End: 16-70-2574Crvlenbud Result EncounterGeneric External Data ProviderNOMS External Department UnsolicitedStart: 09-28-2024 End: 84-16-2299Bamaxaqtd Result EncounterGeneric External Data ProviderNOMS External Department UnsolicitedStart: 09-02-2024 End: 35-24-1369Rukeaknp flow Arsenio ARELLANO Work Phone: noms BCP OBComment on above:Second trimester ([facility]); 15 weeks gestation of ([facility]); Screening, , for anatomic survey ([facility])Start: 09-02-2024 End: 34-80-7291ctycmpxyhzACV RAMEYNot AvailableStart: 09-02-2024 End: 34-41-4350Tceyec Herson ARELLANO Work Phone: NOMS BCP OBStart: 09-02-2024 End: 49-54-7710Woeudy flowsheetAmy [place] PA Work Phone: NOMS BCP OBStart: 08-31-2024 End: 00-69-0681Smwiwvivr Result EncounterCorey William DO Work Phone: noMS External Department UnsolicitedStart: 08-31-2024 End: 36-15-6267Dxmbehyyr Result EncounterCorey William DO Work Phone: NOMS External Department UnsolicitedStart: 08-05-2024 End: 20-36-5337Wudtcp flowsheetCorey William DO Work Phone: NORV BCP OBStart: 08-05-2024 End: 35-69-3654Xiqlmj flowsheetCorey William DO Work Phone: NOKD BCP OBStart: 08-05-2024 End: 41-85-4561Fukpiapn flow sheetCorey William DO Work Phone: NOOW BCP OBComment on above:First trimester ; 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 ; 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)Start: 08-05-2024 End: 42-73-1827cwjbjthdctAZOVK FAZIONot AvailableStart: 07-18-2024 End: 39-40-2722Pvzzyxznt Result EncounterGeneric External Data ProviderNOMS External Department UnsolicitedStart: 07-18-2024 End: 86-70-7208Bfuxpxoer Result EncounterGeneric External Data ProviderNOMS External Department UnsolicitedStart: 07-16-2024 End: 57-53-2243Mnnjoo outpatient visit 5 minutesNoms Bcp Ob William NurseNOMS BCP OBComment on above:GA: 6q1qKhgpm: 07-16-2024 End: 06-95-4623llzzikjqtpKHQGZ FAZIONot AvailableStart: 02-26-2024 End: 94-64-2264Btsvbuv encounter procedureDavid A Pocos DO Work Phone: noms NB ORTHOComment on above:S/P reconstruction of ACL of left knee using bone-patellar tendon-bone autograft (Primary Dx)Start: 02-26-2024 End: 78-34-6685isxfyuhtwbUPOBB A POCOSNot AvailableStart: 02-19-2024 End: 29-15-4843Njrzki outpatient visit 25 minutesRosalie Payne MD Work Phone: NOMS CI FM 100Comment on above:Subclinical hypothyroidism (CMS/HCC) (Primary Dx); 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CMS/HCC); Cigarette smoker; Non morbid obesity due to excess calories; Postural orthostatic tachycardia syndrome (POTS); Abnormal bleeding in menstrual cycleStart: 02-19-2024 End: 34-26-3967yuajbmwxflCVKUEACristal Pariis AvailableStart: 02-19-2024 End: 79-48-3421Zjnkfllnaa Payne MD Work Phone: NOMS CI FM 100Start: 02-19-2024 End: 79-69-7079Dfbczdalan Payne MD Work Phone: NOMS CI FM 100Start: 12-27-2023 End: 05-33-8425akhyihbmmyLwmm J Spriggs PT Work Phone: NOMS FB PTComment on above:Acute pain of left knee (Primary Dx); Status post arthroscopic reconstruction of anterior cruciate ligament of left knee using quadricepstendon autograftStart: 12-27-2023 End: 35-92-7400Prwcru Za Nagy PT Work Phone: NOMS FB PTStart: 12-27-2023 End: 35-05-6843Bzlaqq Za Nagy PT Work Phone: NOMS FB PTStart: 12-24-2023 End: 40-32-7099dhsppkiehjQjjpuwfu Wright PRO [employer]OP ATTENDANT Work Phone: NOMS FB PTComment on above:Acute pain of left knee (Primary Dx); Status post arthroscopic reconstruction of anterior cruciate ligament of left knee using quadricepstendon autograftStart: 12-24-2023 End: 78-38-7268Yqwnnf Nikita Vieira PRO SHOP ATTENDANT Work Phone: NOMS FB PTStart: 12-24-2023 End: 38-86-7387Yoytay Nikita Vieira PRO SHOP ATTENDANT Work Phone: NOMS FB PTStart: 12-17-2023 End: 30-09-3347ikrwteaupkAzvv J Spriggs PT Work Phone: NOMS FB PTComment on above:Acute pain of left knee (Primary Dx); Status post arthroscopic reconstruction of anterior cruciate ligament of left knee using quadricepstendon autograftStart: 12-17-2023 End: 13-14-9801Uoimbq Za Nagy PT Work Phone: NOMS FB PTStart: 12-17-2023 End: 41-19-7107Vcoejm Za Nagy PT Work Phone: NOMS FB PTStart: 12-09-2023 End: 04-18-2851Vacmue Isabel Schwartz DO Work Phone: NOMS SWS ORTHOAOStart: 12-09-2023 End: 91-74-7182Vqmgaz Isabel Schwartz DO Work Phone: [phone] SWS ORTHOAOStart: 12-09-2023 End: 70-83-4355Vuhvvcz encounter Hans Schwartz DO Work Phone: [phone] SWS ORTHOAOComment on above:Left knee injury, initial encounter (Primary Dx)Start: 12-03-2023 End: 68-42-5075fayfmvobhtEeodmoui Wright PRO SHOP ATTENDANT Work Phone: NOMS FB PTComment on above:Acute pain of left knee (Primary Dx); Status post arthroscopic reconstruction of anterior cruciate ligament of left knee using quadricepstendon autograftStart: 12-03-2023 End: 62-72-7668Uuclav Nikita Vieira PRO SHOP ATTENDANT Work Phone: NOMS FB PTStart: 12-03-2023 End: 52-26-7879Cfhpmf Nikita Vieira PRO SHOP ATTENDANT Work Phone: noms FB PTStart: 11-19-2023 End: 31-67-9320ayilssrngdApjzqo Tattersall PTANOMS FB PTComment on above:Acute pain of left knee (Primary Dx); Status post arthroscopic reconstruction of anterior cruciate ligament of left knee using quadricepstendon autograftStart: 11-19-2023 End: 92-82-0535Efxfdj flowsheetMariah Tattersall PTANOMS FB PTStart: 11-19-2023 End: 96-14-0256Xejicf flowsheetMariah Tattersall PTANOMS FB PTStart: 11-12-2023 End: 62-87-2666lpdubuagheZpppinvm Wright PRO SHOP ATTENDANT Work Phone: noms FB PTComment on above:Acute pain of left knee (Primary Dx); Status post arthroscopic reconstruction of anterior cruciate ligament of left knee using quadricepstendon autograftStart: 11-12-2023 End: 61-07-3172Xrmpwz FaraBaylee Vieira PRO SHOP ATTENDANT Work Phone: noms FB PTStart: 11-12-2023 End: 50-95-0765Ijrjpu FaraBaylee Vieira PRO SHOP ATTENDANT Work Phone: noms FB PTStart: 51-10-4559Mzp-patient / Non-visitMD Rosalie Payne Work Phone: [facility] Gastroenterology Work Phone: Start: 09-02-2023 End: 75-14-7307Dqmsnnxok to same day surgery centerMD Rosalie Payne Work Phone: [facility] Work Phone: Start: 09-02-2023 End: 80-15-4951izfvwctituWJ Rosalie Payne Work Phone: [facility] Work Phone: Start: 07-25-2023 End: 81-82-3637tyhszyoivhIjsvwhxdq [facility] Work Phone: Start: 07-25-2023 End: 22-06-8764Flpdwqg encounter procedureAt[facility] Gastroenterology Work Phone: Start: 04-23-2023 End: 90-19-0394cdpiksfhtzKmdeo A PocosFacility:FTMCStart: 27-82-5309Jxoao Jennifer Nagy PT Work Phone: noms FB PTStart: 04-03-2023 End: 44-47-5386msfxtlhwujCeadm A PocosFacility:FTMCStart: 04-03-2023 End: 80-95-5034Rgjmqvp encounter procedureDavid A Pocos [facility] Start: 04-01-2023 End: 91-11-3845efgldmoqctDbwavk Kristine Other noHealth Plotter Génie Numérique Other Start: 53-62-9903Ipywid outpatient visit 15 minutes Destinee GrobFPG Urgent Care ClydeStart: 05-01-2022 End: 18-80-2753mjthxpebgoXH DOC WILLIAM .Facility:G1Aifkp: 08-21-2021 End: 90-74-8137exuygufkcuZxdwmu Dymond Other [employer] Génie Numérique Other Start: 35-87-4415Wmbqcl outpatient visit 15 minutes Carlie ThomasFPG Urgent Care ClydeStart: 07-26-2021 End: 54-28-1163sounicuydoON DOC WILLIAM .Facility:H7Sleqa: 13-27-2164Sxrjytewy department patient visitARTIS Garcia HospitalStart: 05-24-2021 End: 83-78-9025Lteaoztbl department patient visitArtis Yoder DO Work Phone: [facility] EDComment on above:Contusion of left knee, initial encounter (Primary Dx)Start: 05-11-2021 End: 12-48-6469wcxscokikeRigoiwdfa Breault Other [employer]Health Plotter Génie Numérique Other Start: 87-56-9628Reynbv outpatient visit 15 minutes Adriana Jean CarlosFPG Urgent Care ClydeStart: 05-01-2021(URG) Urgent Care Visit aCrlie LewiselvisFPG [facility]gent Care ClydeStart: 05-01-2021 End: 20-53-6452sdnhhjmjcxVwzatd Dymond Other [employer]Health Plotter Génie Numérique Other Start: 04-07-2021 End: 36-73-2228qpwpomkvpcTzsvoj Taylor Other [employer]Health [employer]ter Génie Numérique Other Start: 38-34-8313Hzhbil outpatient visit 15 minutes Wilfridemerita AshleyMarilee [facility] Care ClydeStart: 12-14-2020 End: 52-48-0259Bikrpgwux department patient visitCIPRIAN [facility] Hospitaltart: 12-14-2020 End: 38-70-6068Hhemjgxvs department patient visitCiprian Frankie MURRIETA Work Phone: [facility] EDComment on above:Tailbone injury, initial encounter (Primary Dx)Start: 09-19-2020 End: 80-75-6526Zsijugtpj department patient visitOhiohealth [facility]field Hospital EDComment on above:Closed head injury, initial encounter (Primary Dx)Start: 07-15-2017 End: 00-72-4752AhmcafbahzBCBKKA P [facility]: 05-15-2017 End: 66-99-9766CwqjoifuetUXYYGR P [facility]: 04-30-2017 End: 23-00-1299WvgxtljrstCKPCQQ P [facility]CS[facility]: 04-29-2017 End: 11-16-9398GhnzannljbHEYOBE P [facility] CenterStart: 03-13-2017 End: 01-01-4097ZrsmetwxdlNLBQO MCKENZIE PABLOFacility:[facility] Procedures DateProcedureProcedure DetailPerforming ClinicianStart: 78-24-4418Nidhs dip stick/tablet rgnt non-auto w/o micrscpCorey William DO Work Phone: Start: 12-22-7480TE OB BPP W NON-STRESSGeneric External Data ProviderStart: 34-95-5107CI OB GROWTHGeneric External Data ProviderStart: 22-24-4590MN OB BPP W NON-STRESSGeneric External Data ProviderStart: 32-94-1492JXH THYROID STIM HORMONECorey William DO Work Phone: Start: 86-17-0333Jaauu dip stick/tablet rgnt non-auto w/o micrscpKrniviaa Enio IMMUNOPATHOLOGIST Work Phone: Start: 54-97-0795Thxtp dip stick/tablet rgnt non-auto w/o micrscpCorey William DO Work Phone: Start: 90-57-4956Iczqx dip stick/tablet rgnt non-auto w/o micrscpKristina Enio IMMUNOPATHOLOGIST Work Phone: Start: 46-97-3983AB ECHO DOPPLER COMPLETEGeneric External Data ProviderStart: 14-25-8135UXO 12-LEADGeneric External Data Provider Start: 46-87-4249TFA CBC WITH AUTO DIFFLuna Steen IMMUNOPATHOLOGIST Work Phone: Start: 21-53-7517IINXXNJCA VAGINITIS (HTRX)Luna Steen IMMUNOPATHOLOGIST Work Phone: Start: 11-52-1208Tqnzl dip stick/tablet rgnt non-auto w/o micrscpKrniviaa Enio IMMUNOPATHOLOGIST Work Phone: Start: 40-47-9462AFL,APTIMA HPV,AGE GDLNAmy Dm ARELLANO Work Phone: Start: 17-75-5914QA OB CERVICAL LENGTHCorey William DO Work Phone: Start: 26-19-5760Xjlos dip stick/tablet rgnt non-auto w/o micrscpCorey William DO Work Phone: Start: 71-70-0862APY THYROID STIM HORMONECorey William DO Work Phone: Start: 71-04-1020Yptas dip stick/tablet rgnt non-auto w/o micrscpAmy Dm ARELLANO Work Phone: Start: 24-39-1712VIT THYROID STIM HORMONEGeneric External Data ProviderStart: 73-99-5515Vgpry dip stick/tablet rgnt non-auto w/o micrscpCorey William DO Work Phone: Start: 17-98-0562TQM TESTCorey William DO Work Phone: Start: 94-68-1432ILR DRUG SCREEN RAPID (URINE)Generic External Data ProviderStart: 44-63-2377Bhegd dip stick/tablet rgnt non-auto w/o micrscpCorey William DO Work Phone: Start: 50-42-3385Jdsfryvc blood count with white cell differential, automatedRosalie Payne MD Work Phone: Start: 60-81-8377Ykxbrcumktinx metabolic panelRosalie Payne MD Work Phone: Start: 47-84-5706Pagiosuaddpcp antibodyEdjay Payne MD Work Phone: Start: 58-03-0353IuofssdxixzbtbetekyexjenlrBP Rosalie Payne Work Phone: Start: 91-63-5691Hubbskm of reconstruction of anterior cruciate ligament tearStatus post arthroscopic reconstruction of anterior cruciate ligament of left knee using quadricepstendon autograftGrmaribel Vieira PTA Work Phone: Start: 49-94-6067Aqrfxgqlop examination knee 3 views Artis Yoder DO Work Phone: Start: 57-65-0326Qqqcs sacrum & coccyx minimum 2 views David Dominguez MD Work Phone: Start: 32-02-7722Zw head/brain w/o contrast material Luis Carlos Fragoso PA-C Work Phone: Cyst of ovary (disorder)Myron Pocos History of operative procedure on kneeS/P reconstruction of ACL of left knee using bone-patellar tendon-bone autograft Myron Marroquin DO Work Phone: History of reconstruction of anterior cruciate ligament tearStatus post arthroscopic reconstruction of anterior cruciate ligament of left knee using quadricepstendon autograftKyle Pari Lilo PT Work Phone: History of reconstruction of anterior cruciate ligament tearStatus post arthroscopic reconstruction of anterior cruciate ligament of left knee using quadricepstendon autograftGretchen Vieira PRO SHOP ATTENDANT Work Phone: History of reconstruction of anterior cruciate ligament tearStatus post arthroscopic reconstruction of anterior cruciate ligament of left knee using quadricepstendon autograftKyle J Lilo PT Work Phone: History of reconstruction of anterior cruciate ligament tearStatus post arthroscopic reconstruction of anterior cruciate ligament of left knee using quadricepstendon autograftGretchen Vieira PRO SHOP ATTENDANT Work Phone: History of reconstruction of anterior cruciate ligament tearStatus post arthroscopic reconstruction of anterior cruciate ligament of left knee using quadricepstendon autograftGretchen Vieira PRO SHOP ATTENDANT Work Phone: History of reconstruction of anterior cruciate ligament tearStatus post arthroscopic reconstruction of anterior cruciate ligament of left knee using quadricepstendon autograftJennifer Dozier PRO SHOP ATTENDANT Laparoscopic excision of cyst of left ovaryMyron Marroquin Plan of Treatment DateCare ActivityDetailAuthorStart: 83-00-8951Zcaehesvi vaccinationInfluenza Vaccine (#1)NOMS HealthcareComment on above:Postponed from 11/16/2024 (Patient Refused)Start: 01-20-2025 End: 35-95-7534Liggdez encounter mnuryoxyx45/05/2025 1:50 PM EST Routine [facility] [address] [place], [phone] Pretty Chaidez PA [address] [place] [address] [facility] [place] OBGYNStart: 01-05-2025 End: 41-98-1322Fankkzu encounter procedureNOMS Alba OBGYNComment on above: ArrivedStart: 12-23-2024 End: 80-11-2951Ycrbkur encounter procedureNOMS [place] OBGYNComment on above: ArrivedStart: 12-23-2024 End: 54-46-5901Lzuxmqugwxpd / ancillary services tcedadzptz53/08/2025 1:30 PM EDT Ancillary Procedure [facility] [address] [address] [facility] [place] OBGYNStart: 12-09-2024 End: 08-23-5073Jsqwutv encounter procedureNOMS [place] OBGYNComment on above: ArrivedStart: 11-25-2024 End: 95-92-5183PZ biophysical profile w non stress testUS biophysical profile w non stress test Imaging Routine 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), Expires: 05/25/2025[facility] Work Phone: comment on above:Expected: 11/25/2024 (Approximate), Expires: 05/25/2025Start: 11-25-2024 End: 52-50-6058CU for pregnancyUS OB follow up transabdominal approach Imaging Routine Evan's disease Expected: 11/25/2024, Expires: 03/27/2025NOMS HealthcareComment on above:Expected: 11/25/2024, Expires: 03/27/2025Start: 11-25-2024 End: 49-97-5220Rvjkhqa encounter procedureNOMS [place] OBGYNComment on above: ArrivedStart: 11-70-8456Bixvqidoz vaccinationNOCO HealthcareStart: 10-28-2024 End: 07-54-9197Lhhfqce encounter procedureNOMS [facility] OBComment on above:Arrived Start: 10-28-2024 End: lead ECGECG 12 lead unit performed ECG Routine Heart palpitations Expected: 10/28/2024 (Approximate), Expires: 10/28/2025NOCO HealthcareComment on above:Expected: 10/28/2024 (Approximate), Expires: 10/28/2025Start: 10-28-2024 End: 78-32-3820FGS panel - Blood by Automated countCBC Lab Routine Diabetes mellitus screening Expected: 10/28/2024 (Approximate), Expires: 10/28/2025[facility] Work Phone: comment on above:Expected: 10/28/2024 (Approximate), Expires: 10/28/2025Start: 10-28-2024 End: 14-20-5500Deomxftqxniwzh 2D completeEchocardiogram 2D complete Echocardiography Routine Heart palpitations Expected: 10/28/2024 (Approximate), Expires: 10/28/2026NOCO HealthcareComment on above:Expected: 10/28/2024 (Approximate), Expires: 10/28/2026Start: 10-28-2024 End: 90-25-6278Bzjkgbjcyuw of glucose 1 hour after glucose challenge for glucose tolerance testGlucose tolerance, 1 hour Lab Routine Diabetes mellitus screening Expected: 10/28/2024 (Approximate), Expires: 10/28/2025[facility] HealthcareComment on above:Expected: 10/28/2024 (Approximate), Expires: 10/28/2025Start: 09-30-2024 End: 53-55-0454Pngfgrl encounter yzvmpafpt83/16/2025 3:40 PM EDT Routine [facility] [address] [phone] Doc Thomas, DO [address] [place] [address] NOMS BCP OBStart: 09-30-2024 End: 06-00-1159Kbilbxxqsezc / ancillary services adomjyjzjt21/16/2025 2:30 PM EDT Ancillary Procedure [facility] [address] [place] [phone] BCP OBStart: 09-02-2024 End: 08-78-6176Mnxvzuj encounter procedureNOMS BCP OBComment on above:Arrived Start: 09-02-2024 End: 51-35-4997Ibsvm fetoprotein, maternalAlpha fetoprotein, maternal Lab Routine Second trimester ([facility]) Expected: 09/02/2024 (Approximate), Expires: 11/02/2024NOMS HealthcareComment on above:Expected: 09/02/2024 (Approximate), Expires: 11/02/2024Start: 09-02-2024 End: 27-42-4611LI for pregnancyUS OB 14+ weeks anatomy scan Imaging Routine Screening, , for anatomic survey ([facility]) Expected: 09/02/2024, Expires: 12/03/2024[facility] Work Phone: comment on above:Expected: 09/02/2024, Expires: 12/03/2024Start: 08-05-2024 End: 93-32-6614Ulmlpql encounter procedureNOMS [facility] OBComment on above:Arrived Start: 07-16-2024 End: 83-72-2834DRJ/RhABO/Rh Lab Routine Missed menses , unspecified gestational age Expected: 07/16/2024 (Approximate), Expires: 07/16/2025NOMS HealthcareComment on above:Expected: 07/16/2024 (Approximate), Expires: 07/16/2025Start: 07-16-2024 End: 52-97-4725Jobsl type and Indirect antibody screen panel - BloodType and screen Lab Routine Missed menses , unspecified gestational age Expected: 07/16/2024 (Approximate), Expires: 07/16/2025NOMS HealthcareComment on above:Expected: 07/16/2024 (Approximate), Expires: 07/16/2025Start: 07-16-2024 End: 71-43-5394Eqdae of abuse panel - Urine by Screen methodRapid drug screen, urine Lab Routine , unspecified gestational age Encounter for supervision of normal first in first trimester Expected: 07/16/2024 (Approximate), Expires: 07/16/2025NOCO HealthcareComment on above:Expected: 07/16/2024 (Approximate), Expires: 07/16/2025Start: 07-10-2024 End: 70-83-6610PA Pelvis transvaginalUS OB transvaginal Imaging Routine Missed menses Expected: 07/10/2024, Expires: 10/09/2024[facility] Work Phone: comment on above:Expected: 07/10/2024, Expires: 10/09/2024Start: 02-21-2024 End: 94-68-5542Qyiscda encounter vjenvyyne69/06/2024 8:00 AM EST Office Visit [facility] [address] [place] [address] [place] [phone] Myron Marroquin, DO [address] [place] [address] NOMS SWS ORTHOAOStart: 02-19-2024 End: 05-72-3746Ezsnkcp encounter rkndqeosg08/04/2024 3:30 PM EST Office Visit [facility] 100 [address] [facility] [address] [place] [address] Rosalie Payne MD [address] [facility] [address] [place] [address] (Fax) 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CMS/HCC); Chronic fatigue; Cigarette smoker; Non morbid obesity due to excess caloriesNOMS CI FM 100Comment on above: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CMS/HCC); Chronic fatigue; Cigarette smoker; Non morbid obesity due to excess caloriesStart: 02-19-2024 End: 84-62-1454Qylodqz, randomInsulin, random Lab Routine Non morbid obesity due to excess calories Postural orthostatic tachycardia syndrome (POTS) Expected: 02/19/2024 (Approximate), Expires: 02/18/2025[facility] Work Phone: Comment on above:Expected: 02/19/2024 (Approximate), Expires: 02/18/2025Start: 01-17-2024 End: 38-57-8339fbzdcxnwkz38/01/2024 2:30 PM EDT Treatment [facility] [address] [place] [phone] Stefano Nagy, PT [address] [place] [address] NOMS FB PTStart: 01-14-2024 End: 30-85-0515zwsnumwkat16/29/2024 3:30 PM EDT Treatment [facility] [address] [place] [phone] Nereyda Vieira, PRO SHOP ATTENDANT [address] [place] [address] NOMS FB PTStart: 01-10-2024 End: 37-66-0157axyjdcunem43/25/2024 2:30 PM EDT Treatment [facility] PT [address] [place] [address] Stefano Nagy, PT [address] [place] [address] NOMS FB PTStart: 01-07-2024 End: 10-93-8867chjedjrodr95/22/2024 3:30 PM EDT Treatment [facility] [address] [place] [address] Stefano Nagy, PT [address] [place] [address] NOMS FB PTStart: 01-03-2024 End: 53-09-0469igqmbwwegk88/18/2024 2:30 PM EDT Treatment [facility] [address] [place] [phone] Stefano Nagy, PT [address] [place] [address] NOMS FB PTStart: 12-31-2023 End: 91-06-4083cfrfjknucf73/15/2024 3:30 PM EDT Treatment [facility] [address] [place] [address] Jennifer Dozier PTANOMS FB PTStart: 12-27-2023 End: 48-96-3074tusyrnrtwpGZGO FB PTComment on above:ArrivedStart: 12-24-2023 End: 42-58-7750fvtbkeutdr87/08/2024 3:00 PM EDT Treatment [facility] [address] [place] [phone] Nereyda Vieira, PRO SHOP ATTENDANT [address] [place] [address] NOMS FB PTStart: 12-17-2023 End: 85-20-7099luujmnfdzi86/01/2024 3:00 PM EDT Treatment [facility] [address] [place] [phone] Stefano Nagy, PT [address] [place] [address] NOMS FB PTStart: 12-09-2023 End: 08-61-9908Wmuegnl encounter procedureNOMS SWS ORTHOAOComment on above: ArrivedStart: 12-03-2023 End: 40-94-5552kpbzcxvkav02/17/2024 3:30 PM EDT Treatment [facility] [address] [place] [phone] Nereyda Vieira, PRO SHOP ATTENDANT [address] [place] [address] ArrivedNOMS FB PT Comment on above:ArrivedStart: 11-19-2023 End: 84-78-1705ddnzyscxxzQZNA FB PTComment on above:Acute pain of left knee (Primary Dx); Status post arthroscopic reconstruction of anterior cruciate ligament of left knee using quadricepstendon autograftStart: 35-51-9160Qxrqlaibk vaccination Influenza Vaccine (#1)NOMS HealthcareStart: 27-08-5532XpnpcifamMercy Health St. Charles Hospitaltart: 05-07-2023 End: 32-45-5701Cpadzsj encounter jmbehfzpr91/20/2024 11:10 AM EST Office Visit [facility] [address] [place] [phone] Doc Thomas, DO [address] [place] [address] NOMS BCP OBStart: 05-03-2023 End: 25-50-2319Ocrqvyq encounter vfkmncepf99/16/2024 11:00 AM EST Office Visit [facility] [address] [facility] [address] [place] [address] Myron Marroquin, DO [address] [place] [address] [facility] ORTHOAOStart: 04-23-2023 End: 16-89-2841Mjqslkk encounter spurtzajo78/06/2024 8:00 AM EST Procedure Visit [facility] EXT DEP Myron Marroquin, DO [address] [place] [place] [address] N[facility] EXT DEPStart: 04-22-2023 End: 13-25-3163ooyxqclcxw06/05/2024 2:30 PM EST Evaluation [facility] FB PT [address] [place] [id number] Stefano Nagy, PT [address] [place] [address] [facility] FB PTStart: 46-46-7089Bvoleukjl vaccinationInfluenza Vaccine (#1)[facility] HealthcareStart: 13-19-0384VJqJ/Tdap/Td vaccine (5 - Td or Tdap)DTaP/Tdap/Td vaccine (5 - Td or Tdap)[facility]: 50-08-7426Qktytmjeg vaccinationFlu vaccine (#1)[facility]Start: 50-12-8659Gyzoaqdns for malignant neoplasm of cervixJ.W. [facility] Start: 37-23-7289HAgM/Tdap/Td vaccine (1 - Tdap)DTaP/Tdap/Td vaccine (1 - Tdap) [facility] Footnote Phone: start: 65-29-6852Qfpcranrx for Chlamydia trachomatis Chlamydia screenJ.[facility]. [facility] HealthStart: 40-21-4737GYW screeningHIV screenJ.W. [facility] Health Start: 84-72-8811Zmacevojq vaccine (2 of 2 - 2-dose childhood series)Varicella vaccine (2 of 2 - 2-dose childhood series)[facility] HospitalStart: 52-43-8556XXRAE-19 Vaccine (1)COVID-19 Vaccine (1)[facility] Footnote Phone: start: 22-94-8380Posbmpzzad ScreenDepression Screen [facility] HospitalStart: 05-63-7148JQV vaccine (1 - 2-dose series)HPV vaccine (1 - 2- dose series)[facility] HospitalStart: 96-38-7612HOYFG-19 Vaccine (1)COVID-19 Vaccine (1)[facility] HospitalStart: 43-34-2193Dgmkkteaf vaccine (1 of 2 - 2-dose childhood series)Varicella vaccine (1 of 2 - 2-dose childhood series)[facility] Footnote Phone: start: 80-18-7603Xxnsfkguw C screeningHepatitis C screenMerPeaceHealth United General Medical CenterBacteria identified in Urine by CultureUrine culture Microbiology Routine Missed menses Ordered: 07/16/2024[facility] HealthcareComment on above:Ordered: 5CBC W Auto Differential panel - BloodCBC and differential Lab Routine Missed menses , unspecified gestational age Ordered: 07/16/2024[facility] HealthcareComment on above:Ordered: 07/16/2024HLAMYDIA TRACHOMATIS (GENITO/STI)CHLAMYDIA TRACHOMATIS (GENITO/STI) Lab Routine STD exposure Ordered: 10/28/2024[facility] HealthcareComment on above:Ordered: 10/28/2024 Cytology Cervical or vaginal smear or scraping studyPap Smear Pathology and Cytology Routine Well woman exam with routine gynecological exam Ordered: [facility] HealthcareComment on above:Ordered: 10/28/2024Hemoglobin A1c/Hemoglobin.total in BloodHemoglobin A1c Lab Routine Missed menses , unspecified gestational age Ordered: 07/16/2024[facility] HealthcareComment on above: Ordered: 07/16/2024Hepatitis B virus surface Ag [Presence] in Serum or Plasma by ImmunoassayHepatitis B surface antigen Lab Routine Missed menses , unspecified gestational age Ordered: 07/16/2024[facility] HealthcareComment on above: Ordered: 07/16/2024Hepatitis C virus Ab [Presence] in Serum or Plasma by ImmunoassayHepatitis C antibody Lab Routine Missed menses , unspecified gestational age Ordered: 07/16/2024[facility] HealthcareComment on above:Ordered: 07/16/2024HIV-1/HIV-2 antigen/antibody combination immunoassayHIV-1 and HIV-2 antibodies Lab Routine Missed menses , unspecified gestational age Ordered: 07/16/2024[facility] HealthcareComment on above:Ordered: 07/16/2024Neisseria gonorrhoeae DNA [Presence] in Unspecified specimen by QUEENIE with probe detection Neisseria gonorrhea DNA probe, direct Lab Routine STD exposure Ordered: 10/28/2024[facility] HealthcareComment on above:Ordered: 10/28/2024Patient Education Hiatal hernia Hemorrhoids Gastritis Know your [facility] Work Phone: Reagin Ab [Presence] in Serum by RPRRPR Lab Routine Missed menses , unspecified gestational age Ordered: 07/16/2024[facility] HealthcareComment on above:Ordered: 07/16/2024Rubella antibody, IgGRubella antibody, IgG Lab Routine Missed menses , unspecified gestational age Ordered: 07/16/2024[facility] HealthcareComment on above:Ordered: 07/16/2024 SURESWAB(R) ADVANCED VAGINITIS PLUS, TMASURESWAB(R) ADVANCED VAGINITIS PLUS, TMA Pathology and Cytology Routine STD exposure Ordered: 10/28/2024[facility] Comment on above:Ordered: 10/28/2024 End: 71-81-9069Zsfxtbpzcxk [Units/volume] in Serum or PlasmaTSH Lab Routine 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CMS/HCC) q9rrwzu for 6 Occurrences starting 08/05/2024 until 08/05/2025[facility] Healthcare Work Phone: comment on above:g7jhejo for 6 Occurrences starting 08/05/2024 until 08/05/2025US Pelvis transvaginalUS OB transvaginal Imaging Routine Missed menses 07/16/2024 1:[facility] Immunizations Immunization DateImmunizationNotesCare OwiueqewIngtnhux46-34-7708ugkdbarwa B vaccine, adult dosageKyle Lilo PT Work Phone: [facility] HospitalKiuqumbtxi36-81-1886cjobouipxnfrg oligosaccharide (groups A, C, Y and W-135) diphtheria toxoid conjugate vaccine (MCV4O)Stefano Lilo PT Work Phone: [facility] HospitalGhqopzneqh28-65-0548xwufojieu A vaccine, pediatric/adolescent dosage, 2 dose scheduleKyle Lilo PT Work Phone: [facility] HospitalRmcxqriwvf66-27-2165eshccmaif A vaccine, pediatric/adolescent dosage, 2 dose scheduleKyle Lilo PT Work Phone: [facility] HospitalLyatfannwh22-92-7267tmgvrgx toxoid, reduced diphtheria toxoid, and acellular pertussis vaccine, adsorbedKyle Lilo PT Work Phone: [facility] HospitalVdgjqywkqk35-17-2594rlgevqzno virus vaccineKyle Lilo PT Work Phone: [facility] HospitalEukxegeiba49-76-3398ecwidgyxtyp influenzae type b conjugate and Hepatitis B vaccineKyle Lilo PT Work Phone: [facility] HospitalCdosqomunb16-43-5963hwruiglesfb influenzae type b vaccine, HbOC conjugateKyle Lilo PT Work Phone: [facility] HospitalTywuhedhaq46-38-0858zxlwttqcj B vaccine, pediatric or pediatric/adolescent dosageKyle Lilo PT Work Phone: [facility] HospitalQebnjghvnx00-34-1823wruzfgg, mumps and rubella virus vaccineKyle Lilo PT Work Phone: [facility] HospitalNcolhppdqp53-72-0523skpuglfreo vaccine, inactivatedKyle Lilo PT Work Phone: [facility] HospitalVfaiqhhljf43-48-4732XHfF-Eemudqlwxqg influenzae type b conjugate vaccineKyle Lilo PT Work Phone: [facility] HospitalLjfqvymvzf43-26-4166kiaxvzmoazre conjugate vaccine, 7 valentKyle Lilo PT Work Phone: [facility] HospitalRkloxwrmrc78-86-4397utddfdunih, tetanus toxoids and acellular pertussis vaccine, Haemophilus influenzae type b conjugate, and poliovirus vaccine, inactivated (ICoN-Yax-NJO)Stefano Lilo PT Work Phone: [facility] HospitalPipkinuwzo20-96-5617sjywarrvup, tetanus toxoids and acellular pertussis vaccine, Haemophilus influenzae type b conjugate, and poliovirus vaccine, inactivated (KLzR-Kvg-CXH)Stefano Lilo PT Work Phone: [facility] HospitalCicmigmfks21-55-1001reyyxbnas B vaccine, pediatric or pediatric/adolescent dosageKyle Lilo PT Work Phone: [facility] HospitalPmgbrghuxg54-29-0240zgyugekyb B vaccine, pediatric or pediatric/adolescent dosageKyle Lilo PT Work Phone: [facility] Payers DatePayer CategoryPayerPolicy [id number] Cross Blue [id number] [id number].3.145[id number]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 [address] (Fax) PCP - [place] [employer]06/16/20Team MemberRelationshipSpecialtyStart DateEnd Date Rosalie Payne MD [address] [place] [address] (Fax) PCP - GeneralFamily Medicine07/24/22 Rosalie Payne MD [address] [place] [address] (Fax) PCP - [place] [employer]06/16/20Team MemberRelationshipSpecialtyStart DateEnd Date Rosalie Payne MD [address] [place] [address] (Fax) PCP - GeneralFamily Medicine07/24/22 Rosalie Payne MD [address] [place] [address] (Fax) PCP - [place] [employer]06/16/20Te MemberRelationshipSpecialtyStart DateEnd Date Rosalie Payne MD [address] [facility] [address] [place] [address] (Fax) PCP - [facility]07/24/22 Rosalie Payne MD [address] [place] [address] (Fax) PCP - [place] [facility]06/16/20Te MemberRelationshipSpecialtySociety [place] DateEnd Date Rosalie Payne MD [address] [facility] [address] [place] [address] (Fax) PCP - [facility]07/24/22 Rosalie Payne MD [address] [facility] [address] [place] [address] (Fax) PCP - [place] [facility]06/16/20 Goals (unrecognized section and content) Goals may [...] BE BASED ON THE PRIMARY CLINICAL RECORDS. [employer] provides no warranty or guarantee of the accuracy or completeness of information in this document.
[2025-01-11 15:21] VITALS: BP 117/75; PULSE 90
== END 2025-01-11 15:46 | disposition home or self-care (01) ==
LOC: US 14:55 → FBC 14:59
PROVIDERS: PCP Family Medicine; Visit Provider Obstetrics & Gynecology
DX: O99.283 Endocrine, nutritional and metabolic diseases complicating pregnancy, third trimester (principal); Z3A.34 34 weeks gestation of pregnancy
CPT/HCPCS: 76818

== ENCOUNTER 2025-01-20 14:51 | Outpatient (OUT) | payer BC, SELFPAY ==
--- OUTSIDE RECORDS SUMMARY | 2024-12-23 13:00 | XMS_ITS | Encounter Summary ---
Author Organization [facility] Address [address] [place] [address] Care Team Providers Care Extrusion Supervisor Name Role Phone Danny Schuler MD Primary Care Provider [phone] Danny Schuler MD Unavailable [phone] Reason for Visit * ReasonCommentsRoutine Visit Encounter Details DateTypeDepartmentCare Team (Latest Contact Info)Iqwccxoffcm94/08/2025 2:00 PM EDTRoutine [facility] [address] [place] [address] Jessica Steen, [place] [address] [place] [address] Third trimester ([facility]); 31 weeks gestation of ([facility]) Social History Tobacco UseTypesPacks/DayYears UsedDateSmoking Tobacco: Some [...] relatives?Once a week12/11/2022How often do you attend jewish or holiness services?More than 4 times per year12/11/2022o you belong to any clubs or organizations such as jewish groups, unions, fraEffector [employer]rapeutics or athletic groups, or school groups?No12/11/2022How often [...] food, housing, medical care, and heating?Somewhat hard 12/11/2022[facility] [place] of Occupational Health - Occupational Stress QuestionnaireAnswerDate RecordedDo you feel stress - tense, restless, nervous, or anxious, or unable to sleep at night because yourmind is troubled all the time - these days?Only a kzzdud6112/11/2022Exercise Vital SignAnswerDate Recorded On average, how many [...] steady place to sleep or slept in [place] (including now)?No12/11/2022EducationAnswer Date RecordedWhat is the highest level of school you have completed or the highest degree you have received?11th grade12/10/2022Estimated Date of NbvgkhpvQtsjctrdYto34/06/2025ased on last menstrual period of 05/16/2024Sex and Gender InformationValueDate RecordedSex Assigned at KwlpxPbunln32/25/2023 10:10 AM EDTLegal UruPpjwwy97/15/2023 6:51 PM EDTGender SzpvghaxYvxlmy33/25/2023 10:10 AM EDTSexual OrientationNot on filedocumented as of this encounter Last Filed Vital Signs Vital SignReadingTime TakenCommentsBlood Zjzadgzw744/7012/23/2024 1:57 PM EDT Pulse--Temperature--Respiratory Rate--Oxygen Saturation--Inhaled Oxygen Concentration--Ezhmrh24.7 kg (171 lb 6.4 oz)12/23/2024 1:57 PM [...] Left 2019 OVARIAN CYST REMOVAL Left 05/20/2020 [facility] William VAGINAL DELIVERY REVIEW OF SYSTEMS [...] nursing note reviewed. Exam conducted with a lyric writer present. Vitals: Estimated body mass index is 29.42 kg/m?? as calculated from the following: Height as of 02/26/24: 5' 4 . Weight as of this encounter: 171 lb 6.4 oz. BP: 110/70 Patient's last menstrual period was 05/16/2024. ASSESSMENT & PLAN ICD-10-CM 1. Third trimester ([facility]) Z34.93 2. 31 weeks gestation of ([facility]) Z3A.31 POCT urinalysis dipstick manually resulted Return [...] Plan of Treatment DateTypeDepartmentCare Team (Latest Contact Info)Jhglxflmwal16/12/2025 1:40 PM ESTRoutine [facility] [address] [place] [address] Doc Thomas DO [address] [place], [place] [address] documented as of this encounter Procedures Procedure NamePriorityDate/TimeAssociated DiagnosisCommentsPOCT URINALYSIS OSLGUGSPKodyysa90/08/2025 2:01 PM EDT 31 weeks gestation of ([facility]) documented in this encounter [...] this encounter Visit Diagnoses Diagnosis Third trimester ([facility]) state, incidental 31 weeks gestation of ([facility]) documented in this encounter Care Teams Team MemberRelationshipSpecialtyStart DateEnd Date Danny Schuler MD [address] [facility] [address] [place] [address] PCP - GeneralFamily Medicine07/24/22 Danny Schuler MD [address] [place] [address] PCP - Ziggy Richard06/16/20documented as of this encounter
--- OUTSIDE RECORDS SUMMARY | 2025-01-20 13:50 | XMS_ITS | Encounter Summary ---
Author Organization [facility] Address [address] [place] [address] Care Team Providers Care Mold Blower Name Role Phone Danny Schuler MD Primary Care Provider [phone] Danny Schuler MD Unavailable [phone] Reason for Visit * ReasonCommentsRoutine Visit Encounter Details DateTypeDepartmentCare Team (Latest Contact Info)Hupgoevnnlq79/05/2025 1:50 PM ESTRoutine [facility] [address] [facility] [facility] [place] [phone] Pretty Chaidez PA [address] [facility] [address] [place], [place] [id number] Third trimester ([facility] 35 weeks gestation of ([facility]) Social History Tobacco UseTypesPacks/DayYears UsedDateSmoking Tobacco: Some [...] relatives?Once a week12/11/2022How often do you attend methodist or nondenominational services?More than 4 times per year12/11/2022o you belong to any clubs or organizations such as methodist groups, unions, fraCrayon Data or athletic groups, or school groups?No12/11/2022How often [...] food, housing, medical care, and heating?Somewhat hard 12/11/2022[facility] [place] of Occupational Health - Occupational Stress QuestionnaireAnswerDate RecordedDo you feel stress - tense, restless, nervous, or anxious, or unable to sleep at night because yourmind is troubled all the time - these days?Only a feeucq3312/11/2022Exercise Vital SignAnswerDate Recorded On average, how many [...] degree you have received?11th grade12/10/2022Estimated Date of RxngnetjJuqeytghOte93/06/2025Based on last menstrual period of 05/16/2024Sex and Gender InformationValueDate RecordedSex Assigned at YgzybNhsasd55/25/2023 10:10 AM EDTLegal CuxKvzwoq55/15/2023 6:51 PM EDTGender HmmmvltoKzfvws85/25/2023 10:10 AM EDTSexual OrientationNot on filedocumented as of this encounter Last Filed Vital Signs Vital SignReadingTime TakenCommentsBlood Hkeklomt57/6001/20/2025 2:02 PM EST Pulse--Temperature--Respiratory Rate--Oxygen Saturation--Inhaled Oxygen Concentration--Pxidmx67.3 kg (174 lb 12.8 oz)01/20/2025 2:02 PM ESTHeight--Body Mass Mqvon6415/11/2024 3:41 PM ESTdocumented in this encounter Progress [...] 2019 OVARIAN CYST REMOVAL Left 05/20/2020 [facility] William VAGINAL DELIVERY REVIEW OF SYSTEMS [...] was 05/16/2024. Assessment/Plan ICD-10-CM 1. Third trimester ([facility]) Z34.93 2. 35 weeks gestation of ([facility]) Z3A.35 POCT urinalysis dipstick manually resulted Return [...] Plan of Treatment DateTypeDepartmentCare Team (Latest Contact Info)Wqzlgftefio61/12/2025 1:40 PM ESTRoutine [facility] [address] [facility] [facility] [place] [address] WilliamDoc leiva, DO [address] [facility] [place] [address] documented as of this encounter Procedures Procedure NamePriorityDate/TimeAssociated DiagnosisCommentsPOCT URINALYSIS ZFIOSTEYOasacsk26/05/2025 2:07 PM EST 35 weeks gestation of ([facility]) documented in this encounter Results * (ABNORMAL) [...] this encounter Visit Diagnoses Diagnosis Third trimester ([facility]) state, incidental 35 weeks gestation of ([facility]) documented in this encounter Care Teams Team MemberRelationshipSpecialtyStart DateEnd Date Danny Schuler MD [address] [address] PCP - GeneralFamily Medicine07/24/22 Danny Schuler MD [address] [address] PCP - Ziggy Richard06/16/20documented as of this encounter
--- OUTSIDE RECORDS SUMMARY | 2025-01-20 14:55 | XMS_ITS | Clinical Summary ---
Author Organization [facility] Healthcare Address [address] [place] [address] Care Team Providers Care Certified Recreational Therapist Name Role Phone Danny Payne MD Primary Care Provider Danny Payne MD Unavailable [phone] Allergies Active AllergyReactionsCriticalityNoted GqqyPniietxiWjbndcutgajoNiaro77/05/2021 Other Reaction(s): hives YdlmoFsfeSwt92/05/2021 Other Reaction(s): Unknown Sbiciymzv63/25/2023 Other Reaction(s): body numbness Medications MedicationSigDispense QuantityRefillsLast FilledStart DateEnd DateStatus ondansetron (Zofran) 4 MG tablet Indications:Nausea and vomiting in ([facility])Take 1 tablet (4 mg) by mouth every 6 (six) hours if needed for nausea or vomiting for up to 30 doses Take 1 tablet by mouth every 6 hours as needed for nausea. 30 tablet 5Active ondansetron (Zofran) 4 MG tablet Indications:Nausea and vomiting in ([facility])Take 1 tablet (4 mg) by mouth every 6 (six) hours if needed for nausea or vomiting for up to 30 doses Take 1 tablet by mouth every 6 hours as needed for nausea. 30 tablet Discontinued(Reorder) Active Problems ProblemNoted DateDiagnosed DateAbnormal bleeding in menstrual cycle02/19/2024 Status post arthroscopic reconstruction of anterior cruciate ligament of left knee using quadricepstendon vhoxiykco54/23/2024cute pain of left knee04/22/2023 Chronic pcjwtpk3412/10/2022igarette txynpw0012/10/2022yst of ovary12/10/2022 Gabby's vcmfnss2512/10/2022Hypotension determined by zhcsdfedagk22/25/2023 Juvenile osteochondrosis of tibial qbpngzizrr23/25/2023Non morbid obesity due to excess qojgaqou97/25/2023ostural orthostatic tachycardia syndrome (POTS) 12/10/2022Subclinical xfmzyislhgtrdq04/25/2023Estimated Date of Delivery FknimdboIvc24/06/2025Based on last menstrual period of 05/16/2024 Resolved Problems ProblemNoted DateDiagnosed DateResolved DateOverweight (BMI 25.0-29.9)12/10/2022 02/19/2024 Encounters DateTypeDepartmentCare DwbnEhlklarongq39/05/2025 1:50 [place] [phone] Pretty Chaidez PA Third trimester ([facility]); 35 weeks gestation of ([facility])01/20/2025amboo [place] [phone] Pretty Chaidez PA 01/11/2025linisync Result Encounter NOMS External Department Unsolicited Sintia Thomas DO 01/05/2025 1:00 [place] [phone] Sintia Thomas, Third trimester ([facility]); 33 weeks gestation of ([facility])01/05/2025amboo [place] [phone] Sintia Thomas DO 01/02/2025linisync Result Encounter NOMS External Department Unsolicited Provider, Generic External Data 12/26/2024linisync Result Encounter NOMS External Department Unsolicited Provider, Generic External Data 12/26/2024linisync Result Encounter NOMS External Department Unsolicited Provider, Generic External Data 12/26/2024linisync Result Encounter NOMS External Department Unsolicited Sintia Thomas DO 12/23/2024 2:00 PM EDTRoutine [facility] [address] [place] [address] Jessica Steen, [place] Third trimester ([facility]); 31 weeks gestation of ([facility])12/23/2024Refill [facility] [address] [place] [address] Azalea Schmitz MA Nausea and vomiting in ([facility])12/23/2024amboo flowsheet [facility] [address] [place] [address] Jessica Steen NP 12/09/2024 2:00 PM EDTRoutine [facility] [place] [facility] [address] [place] [address] Sintia Thomas DO Third trimester ([facility]); 29 weeks gestation of ([facility]); Yeast bdopwpoww09/24/2025amboo flowsheet [facility] [place] [facility] [address] [place] [address] Sintia Thomas, 12/01/2024Telephone [facility] [place] [facility] [address] [place] [address] Azalea Schmitz MA 11/27/2024bstract [facility] [address] [place] [address] Sintia Thomas, 11/25/2024 1:50 PM EDTRoutine [facility] [address] [place] [address] Jessica Steen, [place] Second trimester ([facility]); 27 weeks gestation of ([facility]); Gabby's vyrqaiz5711/25/2024amboo flowsheet [facility] [address] [place] [phone] Jessica Steen NP 11/24/2024linisync Result Encounter NOMS External Department Unsolicited Provider, Generic External Data 11/19/2024Telephone [facility] [place] [facility] [address] [place] [address] Janet Narayanan MA 11/12/2024linisync Result Encounter NOMS External Department Unsolicited Provider, Generic External Data 11/06/2024Orders Only [facility] [address] [place] [address] Coretta Cardenas LPN 11/05/2024Telephone [facility] [address] [place] [address] Azalea Schmitz MA 11/04/2024Telephone [facility] [address] [place] [phone] Azalea Schmitz MA 11/03/2024linisync Result Encounter NOMS External Department Unsolicited Provider, Generic External Data 11/03/2024Telephone [facility] [address] [place] [phone] Azalea Schmitz MA 10/28/2024 2:30 PM EDTRoutine [facility] [address] [place] [address] Pretty Chaidez PA Second trimester ([facility]); 23 weeks gestation of ([facility]); Diabetes mellitus screening; STD exposure; Well woman exam with routine gynecological exam; Heart lyhbykycytta23/13/2025linisync Result Encounter NOMS External Department Unsolicited Provider, Generic External Data 10/28/2024External Result Encounter NOMS External Department Unsolicited Jessica Steen NP 10/28/2024amboo flowsheet [facility] [address] [place] [address] [place] [phone] Pretty Chaidez PA from Last 3 Months Immunizations ImmunizationAdministration DatesNext DueDTaP / HiB / IPV1999,1999 DTaP / Hib03/26/2000Hep A, ped/adol, 2 dose03/31/2012,08/31/2011Hep B, Adolescent or Iqvaftsdl64/27/2001,1999,1999Hep B, adult11/12/2016Hib (HbOC)09/11/2000Hib / Hep B009/11/2000IPV09/11/2000MMR09/11/2000Meningococcal QQT9Y0911/12/2016Pneumococcal Conjugate PCV 7003/26/20007034Nkcb03/15/2012Varicella 08/31/2011 Family History Medical HistoryRelationNameCommentsNo Known ProblemsBrotherHyperlipidemia [...] relatives?Once a week12/11/2022How often do you attend samaritan or scientologist services?More than 4 times per year12/11/2022o you belong to any clubs or organizations such as samaritan groups, unions, fraDayforce or athletic carmen ups, or school groups?No12/11/2022How often do you attend meetings of the clubs or organizations you belong to?Never12/11/2022re you , , , , never , or living with a partner?Mivtuey1212/11/2022 AUDIT-CAnswerDate RecordedQ1: How often do you have [...] food, housing, medical care, and heating?Somewhat hard12/11/2022 [facility] [place] [place] [facility] [employer] - Occupational Stress Questionnaire AnswerDate RecordedDo you feel stress - tense, restless, nervous, or anxious, or unable to sleep at night because yourmind is troubled all the time - these days? Only a lgspvc9512/11/2022Exercise Vital SignAnswerDate RecordedOn average, how many days [...] steady place to sleep or slept in [place] (including now)?No12/11/2022EducationAnswerDate RecordedWhat is the highest level of school you have completed or the highest degree you have received?11th grade12/10/2022Estimated Date of DeliveryCommentsYes 5Based on last menstrual period of 05/16/2024Sex and Gender Information ValueDate RecordedSex Assigned at UyqqlPwmldy69/25/2023 10:10 AM EDTLegal Sex Uazejn2505/30/2022 6:51 PM EDTGender WhuvxogeGpjesf65/25/2023 10:10 AM EDTSexual OrientationNot on file Last Filed Vital Signs Vital SignReadingTime TakenCommentsBlood Qqrtmpno97/6011/07/2024 2:02 PM EST Vjuoh6696 3:26 PM SSNHfuruxzbhqi77.4 ??C (97.5 ??F)05/03/2023 11:22 AM ESTRespiratory Rate--Oxygen Konebprhdq66%02/19/2024 3:26 PM ESTInhaled Oxygen Concentration--Vqaowm90.3 kg (174 lb 12.8 oz)01/20/2025 2:02 PM NTKShcxjo944.6 cm (5' 4 )02/26/2024 3:41 PM ESTBody Mass Kdarz4457/11/2024 3:41 PM EST Plan of Treatment DateTypeDepartmentCare Team (Latest Contact Info)Zwaczcejqua93/12/2025 1:40 PM ESTRoutine [facility] [address] [place] [phone] Sintia Thomas, [address] [place] [address] Health MaintenanceDue DateLast DoneCommentsPneumococcal Vaccine: Pediatrics (0 to 5 Years) and At-Risk Patients (6 to 64 Years) (1 of 2 - PCV)06/09/2018 03/26/2000COVID-19 Vaccine (1 - season)2024Influenza Vaccine (#1) 2025Postponed from 11/16/2024 (Patient Refused) Procedures Procedure NamePriorityDate/TimeAssociated DiagnosisCommentsPOCT URINALYSIS HMNQYQPWUufthvx30/05/2025 2:07 PM EST 35 weeks gestation of ([facility]) US OB BPP W NON-YIWAFT9401/11/2025 9:15 PM EDT POCT URINALYSIS IQRGCGWBSrajtfd84/21/2025 1:04 PM EDT 33 weeks gestation of ([facility]) US OB BPP W NON-XGTWEQ8501/02/2025 3:02 PM EDT US OB WORGUX3812/26/2024 11:31 AM EDT US OB BPP W NON-QUGZXM1812/26/2024 11:19 AM EDT ALL THYROID STIM IHDZUUVPxqfiak85/11/2025 8:13 AM EDT POCT URINALYSIS ZVIFCNXKSwnssfp48/08/2025 2:01 PM EDT 31 weeks gestation of ([facility]) POCT URINALYSIS OACDFWPJMappkny84/24/2025 2:14 PM EDT Third trimester ([facility]) POCT URINALYSIS JVUIMBCSBqcevkt92/10/2025 3:33 PM EDT Second trimester ([facility]) CA ECHO DOPPLER CBYJQWFL94/09/2025 4:39 PM EDT ECG 12-LEAD11/12/2024 12:06 PM EDT ALL THYROID STIM ZHAMTECNcpwkai53/19/2025 4:00 PM EDT GLUCOSE 1 ETDFNcjsfle05/19/2025 4:00 PM EDT ALL CBC WITH AUTO BYQMOaglsxl46/19/2025 4:00 PM EDT RECURRENT VAGINITIS (HTRX)Echdgsr0710/28/2024 4:48 PM EDT POCT URINALYSIS RISXUFDRKgafoze01/13/2025 2:43 PM EDT Second trimester ([facility]) IGP,APTIMA HPV,AGE DKBTDotrbnv32/13/2025 2:25 PM EDT PAP ETYJSTyvwglo92/13/2025 12:00 AM EDTfrom Last 3 Months Results * (ABNORMAL) POCT urinalysis dipstick manually resulted (01/20/2025 2:07 PM EST) Only the most recent of6 resultswithin the time period is included. ComponentValueRef RangeTest MethodAnalysis TimePerformed AtPathologist Signature Color, UAYellowClarity, UAClearGlucose, UATraceNegative - 1999(110) ++++ mg/dL Bilirubin, UANegativeNegative - 4(70) +++ mg/dLKetones, UANegativeNegative - 160(16) ++++ mg/dLSpec Grav, UA1.0301 - 1.03Blood, UANegativeNegative - 50 Randall/mcLpH, UA5.55 - 9Protein, UA1+Negative - 1999(20) ++++ mg/dLUrobilinogen, UA 1.00.2 - 12 mg/dLLeukocytes, UANegativeNegative - 500+++ Rick/mcLNitrite, UA NegativeNegative - PositiveSpecimen (Source)Anatomical Location / Laterality Collection Method / VolumeCollection TimeReceived ObnfVtzgs51/05/2025 2:07 PM EST Narrative Authorizing ProviderResult TypeResult StatusFall River Hospital OF [facility] TEST ENTER/EDIT ORDERABLESFinal Result * US OB BPP W NON-STRESS (01/11/2025 9:15 PM EDT) Only the most recent of3 resultswithin the time period is included. Anatomical RegionLateralityModalityOtherSpecimen (Source)Anatomical Location / LateralityCollection Method / VolumeCollection TimeReceived Time01/11/2025 9:15 PM EDT Narrative 01/11/2025 9:18 PM EDT [facility] ?[address] ? [place] [address] ? Ultrasound Report ? Signed ? Patient: ALETA CASTRO N ?MR#: [id number] ?? : 2000 ?Acct:[id number] ?? Age/Sex: 24 / F ?ADM Date: 01/11/25 ?? Loc: US ? Attending Dr: Sintia Thomas D.O. ? Ordering Physician: Sintia Thomas D.O. ?? Date of Service: 01/11/25 ?? Procedure(s): US OB BPP w non-stress ?? Accession Number(s): [id number] ? cc: Sintia Thomas D.O.; DANNY PAYNE ? [facility] ? [address] ? [place] [address] ? Patient Name: ?? ALETA CASTRO ? MRN: [facility]:[id number] ? date: 2000 ?Sex: F ?? Assigned Patient Location: [facility] ?? Current Patient Location: ? Accession/Order Number: [id number] ?? Exam Date: 01/11/2025 ??15:03 ?Report Date: 01/11/2025 ??21:15 ? At the request of: ?? SINTIA ??CYNTHIA ??DO ? Procedure: ??US OB BPP w non-stress ? Ultrasound biophysical profile ? INDICATION: Gabby's disease. ? COMPARISON: 01/02/2025 ? FINDINGS: LYNN 15.6 cm. ??8/8 score biophysical profile. ??Fetus is cephalic ?? position with heart rate 141 beats per minutes. ? US/US OB BPP w non-stress ?? Impression: 8 out of 8 score biophysical profile. ? Impression dictated by: Deshaun Aguilar M.D. ??01/11/2025 9:15 PM ? Dictation Location: [facility] ? Electronically authenticated by: [id number] ??Y ?? Date: 01/11/2025 ??21:15 ? Dictated By: ?Deshaun Aguilar M.D. ? Signed By: ?01/11/252117 ? DD/ 14 ? TD/TT: ? Mushroom Growing Supervisor: Procedure Note Radiology, Radiologist, - 01/11/2025 [place] [address] Ultrasound Report Signed Patient: ALETA CASTRO NMR#: [id number] : 2000Acct:[id number] Age/Sex: 24 / FADM Date: 01/11/25 Loc: US Attending Dr: Sintia Thomas D.O. Ordering Physician: Sintia Thomas D.O. Date of Service: 01/11/25 Procedure(s): US OB BPP w non-stress Accession Number(s): [id number] cc: Sintia Thomas D.O.; DANNY PAYNE The [address] [address] Patient Name: ALETA CASTRO MRN: [facility]:[id number] date: 2000 Sex: F Assigned Patient Location: [facility] Current Patient Location: Accession/Order Number: [id number] Exam Date: 01/11/2025 15:03 Report Date: 01/11/2025 21:15 At the request of: SINTIA THOMAS DO Procedure: US OB BPP w non-stress Ultrasound biophysical profile INDICATION: Gabby's disease. COMPARISON: 01/02/2025 FINDINGS: LYNN 15.6 cm. 8/8 score biophysical profile. Fetus is cephalic position with heart rate 141 beats per minutes. US/US OB BPP w non-stress Impression: 8 out of 8 score biophysical profile. Impression dictated by: Deshaun Aguilar M.D. 01/11/2025 9:15 PM Dictation Location: [place] [address] Electronically authenticated by: [id number] Y Date: 1:15 Dictated By: Deshaun Aguilar M.D. Signed By:01/11/252117 DD/ 14 TD/TT: Mushroom Growing Supervisor: Authorizing ProviderResult TypeResult StatusCorekehinde Thomas DOCLINISYNC IMAGINGFinal Result * US OB GROWTH (12/26/2024 11:31 AM EDT)Anatomical RegionLateralityModalityOther Specimen (Source)Anatomical Location / LateralityCollection Method / Volume Collection TimeReceived Time12/26/2024 11:31 AM EDT Narrative 12/26/2024 11:33 AM EDT [facility] ?[address] ? [place] [address] ? Ultrasound Report ? Signed ? Patient: ALETA CASTRO N ?MR#: [id number] ?? : 2000 ?Acct:[id number] ?? Age/Sex: 24 / F ?ADM Date: 12/26/24 ?? Loc: US ? Attending Dr: Sintia Thomas D.O. ? Ordering Physician: Sintia Thomas D.O. ?? Date of Service: 12/26/24 ?? Procedure(s): US OB growth ?? Accession Number(s): [id number] ? cc: Sintia Thomas D.O.; DANNY PAYNE ? [facility] ? [address] ? [place] [address] ? Patient Name: ?? ALETA CASTRO ? MRN: [facility]:[id number] ? date: 2000 ?Sex: F ?? Assigned Patient Location: ?? Current Patient Location: ? Accession/Order Number: [id number] ?? Exam Date: 12/26/2024 ??09:00 ?Report Date: [...] 52 bpm. ? motion documented by the bacteriologist dairy.. ? Estimated weight 2093 g 71.4%. ? [...] M.D. ??12/26/2024 11:31 AM ? Dictation Location: [facility]-- ? Electronically authenticated by: [id number] ??Y ?? Date: 12/26/2024 ??11:31 ? Dictated By: ?Deshaun Aguilar M.D. ? Signed By: ?12/26/24 1133 ? DD/ ? TD/TT: ? Mushroom Growing Supervisor: Procedure Note Radiology, Radiologist, MD - 12/26/2024 [place] [address] Ultrasound Report Signed Patient: ALETA CASTRO#: [id number] : 2000Acct:[id number] Age/Sex: 24 / FADM Date: 12/26/24 Loc: US Attending Dr: Sintia Thomas D.O. Ordering Physician: Sintia Thomas D.O. Date of Service: 12/26/24 Procedure(s): US OB growth Accession Number(s): [id number] cc: Sintia Thomas D.O.; DANNY PAYNE [place] [address] Patient Name: ALETA CASTRO MRN: [id number]:[id number] date: 2000 Sex: F Assigned Patient Location: US Current Patient Location: Accession/Order Number: [id number] Exam Date: 12/26/2024 09:00 Report Date: 12/26/2024 11:31 At the request of: SINTIA THOMAS DO Procedure: US OB growth Obstetric ultrasound for growth INDICATION: Gabby's disease FINDINGS: Single live anterior cephalic presentationlongitudinal lie. Amniotic fluid index 12.4 cm between the gestational age fifth ong82wb percentile. Largest pocket of fluid 5.1 cm. heart rate 1 52 bpm. motion documented by the bacteriologist dairy.. Estimated weight 2093 g 71.4%. Gestation age 32 weeks and 0 days. Biparietal diameter 7.93 m. Head circumference 30.7 cm. Otherwise the 10.6 cm. Abdominal circumference 28.9 cm. Femur length 6.4 cm. US/US OB growth IMPRESSION: Single live intrauterine of approximately 30 weeks Impression dictated by: Deshaun Aguilar M.D. 12/26/2024 11:31 AM Dictation Location: [place] [address] Electronically authenticated by: [id number] Y Date: 1:31 Dictated By: Deshaun Aguilar M.D. Signed By:12/26/24 1133 DD/ 1131 TD/TT: Mushroom Growing Supervisor: Authorizing ProviderResult TypeResult StatusGeneric External Data Provider CLINISYNC IMAGINGFinal Result * (ABNORMAL) ALL THYROID STIM HORMONE (12/26/2024 8:13 AM EDT) Only the most recent of2 resultswithin the time period is included. ComponentValueRef RangeTest MethodAnalysis TimePerformed AtPathologist Signature THYROID STIMULATING HORMONE0.131(L)0.358 - 3.740 uIU/mLTBHSpecimen (Source) Anatomical Location / LateralityCollection Method / VolumeCollection Time Received Time10/01/2025 8:13 AM EDT1 8:13 AM EDT Narrative CLINISYNC - 12/26/2024 9:37 AM EDT Authorizing ProviderResult TypeResult StatusGeneric External Data Provider CLINISYNCFinal ResultPerforming OrganizationAddressCity/State/ZIP CodePhone Number CLINISYNC [facility] * CA ECHO DOPPLER COMPLETE (11/24/2024 4:39 PM EDT)Anatomical RegionLaterality ModalityOtherSpecimen (Source)Anatomical Location / LateralityCollection Method / VolumeCollection TimeReceived Time11/24/2024 4:39 PM EDT Narrative 11/24/2024 4:40 PM EDT [facility] ?[address] ? [place] [address] ? Cardiology Report ? Signed ? Patient: ALETA CASTRO ?MR#: [id number] ?? : 2000 ?Acct:[id number] ?? Age/Sex: 24 / F ?ADM Date: 11/12/24 ?? Loc: CARD ? Attending Dr: Jessica Steen ? Ordering Physician: Jessica Steen ?? Date of Service: 11/12/24 ?? Procedure(s): CA echo doppler complete ?? Accession Number(s): [id number] ? cc: Jessica Steen; DANNY PAYNE ? Patient Name: ? SUMMER RAKEL ? MR#: [id number] ? : 2000 ? Exam Date: 11/12/2024 [...] 1640 ? DD/ 1639 ? TD/TT: ? Mushroom Growing Supervisor: Procedure Note Radiology, Radiologist, MD - 11/24/2024 The [place] [id number] Cardiology Report Signed Patient: ALETA CASTRO NMR#: [id number] : 2000Acct:[id number] Age/Sex: 24 FADM Date: 11/12/24 Loc: CARD Attending Dr: Jessica Steen Ordering Physician: Jessica Steen Date of Service: 11/12/24 Procedure(s): CA echo doppler complete Accession Number(s): [id number] cc: Jessica Steen; DANNY PAYNE Patient Name: ALETA CASTRO MR#: [id number] : 2000 Exam Date: 11/12/2024 Ordering Doctor: JESSICA STEEN [facility] ECHOCARDIOGRAM REPORT PROCEDURE: CA ECHO DOPPLER [...] M.D. Signed By:11/24/24 1640 DD/ 1639 TD/TT: Mushroom Growing Supervisor: Authorizing ProviderResult TypeResult StatusGeneric External Data Provider CLINISYNC IMAGINGFinal Result * ECG 12-LEAD (11/12/2024 12:06 PM EDT)Anatomical RegionLateralityModalityOther Specimen (Source)Anatomical Location / LateralityCollection Method / Volume Collection TimeReceived Time11/12/2024 12:06 PM EDT Narrative 11/13/2024 1:34 PM EDT [facility] ?[address] ? [place] [address] ? Electrocardiograph Report ? Signed ? Patient: RAKEL,SUMMER N ?MR#: [id number] ?? : 2000 ?Acct:[id number] ?? Age/Sex: 24 / F ?ADM Date: 11/12/24 ?? Loc: CARD ? Attending Dr: Jessica Steen ? Ordering Physician: Jessica Steen ?? Date of Service: 11/12/24 ?? Procedure(s): ECG 12 lead ?? Accession Number(s): [id number] ? cc: ?[facility] ? Test Date: ?2024-11-12 ?? Pat Name: ? SUMMER RAKEL ?Department: ? Room: ? - ?? Gender: ? Female ? Clinical Trials Specialist: ? : ?2000 ? Requested By: JESSICA ENIO ?? Order Number: [id number] ?Reading MD: ?? Samar Samantha ? Measurements ?? Intervals ?[place] ? Rate: ? 79 ? P: ?42 ?? SD: ? 158 ?QRS: ?81 ?? QRSD: ? 90 ? T: ?41 ?? QT: ? 353 ? QTc: ?405 ? Interpretive Statements ?? SINUS RHYTHM ?? Normal EKG ?? No previous ECG available for comparison ?? Electronically Signed On 11-13-2024 13:34:21 EDT by Bibi Singh ? Dictated By: ?Bibi Singh M.D. ? Signed By: ?08/29/25 1334 ?08/29/25 1334 ? DD/DT: /28/25 1206 ? TD/TT: ? Mushroom Growing Supervisor: Procedure Note Radiology, Radiologist, - 11/13/[address] [address] Electrocardiograph Report Signed Patient: ALETA CASTRO#: [id number] : 2000Acct:[id number] Age/Sex: 24 / FADM Date: 11/12/24 Loc: CARD Attending Dr: Jessica Steen Ordering Physician: Jessica Steen Date of Service: 11/12/24 Procedure(s): ECG 12 lead Accession Number(s): [id number] cc: [facility] Test Date: 2024-11-12 Pat Name: ALETA CASTRO Department: Room: - Gender: Female Clinical Trials Specialist: : 2000 Requested By: JESSICA STEEN Order Number: [id number] Reading MD: Bibi Singh Measurements Intervals [place] Rate: 79 P: 42 SD: 158 QRS: 81 QRSD: 90 T: 41 QT: 353 QTc: 405 Interpretive Statements SINUS RHYTHM Normal EKG No previous ECG available for comparison Electronically Signed On 11-13-2024 13:34:21 EDT by Bibi Singh Dictated By: Bibi Singh M.D. Signed By:11/13/24 1334 11/13/24 1334 DD/ 1206 TD/TT: Mushroom Growing Supervisor: Authorizing ProviderResult TypeResult StatusGeneric External Data Provider CLINISYNC IMAGINGFinal Result * GLUCOSE 1 HOUR (11/03/2024 4:00 PM EDT)ComponentValueRef RangeTest Method Analysis TimePerformed AtPathologist SignatureGLUCOSE 1 QPZA808<130 mg/dLTBH Specimen (Source)Anatomical Location / LateralityCollection Method / Volume Collection TimeReceived Time11/03/2024 4:00 PM EDT11/03/2024 4:01 PM EDT Narrative CLINISYNC - 11/03/2024 6:33 PM EDT Authorizing ProviderResult TypeResult StatusJessica Steen NPLAB BLOOD ORDERABLESFinal ResultPerforming OrganizationAddressCity/State/ZIP CodePhone Number CLINISYNV [facility] * (ABNORMAL) ALL CBC WITH AUTO DIFF (11/03/2024 4:00 PM EDT)ComponentValueRef RangeTest MethodAnalysis TimePerformed AtPathologist SignatureTBH WBC6.64.0 - 11.0 10 3/uLTBHTBH RBC3.34(L)4.20 - 5.40 10 6/uLTBHTBH HGB10.8(L)12.0 - 16.0 g/dLTBHTBH HCT31.2(L)36.0 - 48.0 %TBHTBH MCV93.481.0 - 99.0 fLTBHTBH MCH32.3 26.7 - 34.0 pgTBHTBH MCHC34.629.9 - 35.2 g/dLTBHTBH RDW12.711.0 - 15.0 %TBHTBH HAR276031 - 450 10 3/uLTBHTBH MPV9.79.5 - 13.5 [...] StatusJessica Steen NPCLINISYNCFinal ResultPerforming OrganizationAddressCity/State/ZIP CodePhone Number JEFFRY [facility] * RECURRENT VAGINITIS (HTRX) (10/28/2024 4:48 PM EDT)ComponentValueRef RangeTest MethodAnalysis TimePerformed AtPathologist SignatureATOPOBIUM BHLYWNI622.961 - 24.689 ppm10/30/2024 7:27 AM EDTHealthTrackRx at LabPortATOPOBIUM VAGINAENot Isuhdags44.961 - 24.689 ppm10/30/2024 7:27 AM EDTHealthTrackRx at LabPortBVAB 2,3 (BACTERIAL VAGINOSIS ASSOCIATED BACTERIA 2, 3); MOBILUNCUS KLD651.961 - 24.689 ppm10/30/2024 7:27 AM EDTHealthTrackRx at LabPortBVAB 2,3 (BACTERIAL VAGINOSIS ASSOCIATED BACTERIA 2, 3); MOBILUNCUS SPPNot Pxzkxets35.961 - 24.689 ppm10/30/2024 7:27 AM EDTHealthTrackRx at LabPortCANDIDA ALBICANS, PARAPSILOSIS, SNBCHXBDIQ510.000 - 30.347 ppm10/30/2024 7:27 AM EDT [facility] LabPortCANDIDA ALBICANS, PARAPSILOSIS, TROPICALISNot Detected 23.000 - 30.347 ppm10/30/2024 7:27 AM EDTHealthTrackRx at LabPortCANDIDA HAVZHWSR583.000 - 31.618 ppm10/30/2024 7:27 AM EDT[facility] RICKEY GLABRATANot Ovmmjzjm49.000 - 31.618 ppm10/30/2024 7:27 AM EDT [facility] LabPortCANDIDA LSHAIN857.000 - 30.873 ppm10/30/2024 7:27 AM EDTHealthTrackRx at LabPortCANDIDA KRUSEINot Teocjlfg45.000 - 30.873 ppm 10/30/2024 7:27 AM EDTHealthTrackRx at LabPortCHLAMYDIA WYORFQQTAXO420.000 - 31.586 ppm10/30/2024 7:27 AM EDT[facility] TRACHOMATIS Not Jdzakumc66.000 - 31.586 ppm10/30/2024 7:27 AM EDT[facility] GARDNERELLA RAAZIJGQT725.961 - 24.689 ppm10/30/2024 7:27 AM EDT[facility] at [facility] HospitalGARDNERELLA VAGINALISNot Yiizoqtg94.961 - 24.689 ppm10/30/2024 7:27 AM EDT[facility] at [facility] HospitalMEGASPHAERA (TYPES 1, 2)019.961 - 24.689 ppm 10/30/2024 7:27 AM EDT[facility] HospitalMEGASPHAERA (TYPES 1, 2)Not Dfbnrpdg15.961 - 24.689 ppm10/30/2024 7:27 AM EDT[facility] NEISSERIA SKHSLDUASHM718.000 - 32.587 ppm10/30/2024 7:27 AM EDT[facility] HospitalNEISSERIA GONORRHOEAENot Ctqmcnmm25.000 - 32.587 ppm10/30/2024 7:27 AM EDT[facility] at [facility] HospitalTRICHOMONAS UCUEZBQSE350.000 - 31.995 ppm 10/30/2024 7:27 AM EDTHealth[facility] at [facility] HospitalTRICHOMONAS VAGINALISNot Aygekocd77.000 - 31.995 ppm10/30/2024 7:27 AM EDT[facility] MYCOPLASMA FWPVXUWAYR498.961 - 24.689 ppm10/30/2024 7:27 AM EDT[facility] at [facility] HospitalMYCOPLASMA GENITALIUMNot Uamyqrso57.961 - 24.689 ppm10/30/2024 7:27 AM EDTHealth[facility] at [facility]El[facility] HospitalSpecimen (Source)Anatomical Location / LateralityCollection Method / VolumeCollection TimeReceived TimeTissue 10/28/2024 4:48 PM EDT10/30/2024 2:18 AM EDT Narrative Authorizing ProviderResult TypeResult StatusKrniviaa Enio NPLAB BLOOD ORDERABLESFinal ResultPerforming OrganizationAddressCity/State/ZIP CodePhone Number [facility] [address] [address] * IGP,APTIMA HPV,AGE GDLN (10/28/2024 2:25 PM [...] at: 01 =G ?[facility] [place] ?? [address] [place] ??[phone] ?? Ludy Hector MD, IGP, RFX APTIMA HPV ASCUNote.TBHComment: ?? TESTS ? RESULT ??FLAG ??UNITS ?REF RANGE ??LAB DIAGNOSIS: ?02 ?? NEGATIVE FOR INTRAEPITHELIAL LESION OR MALIGNANCY. ?? THIS SPECIMEN WAS RESCREENED PART OF OUR [employer]AK[employer] PROGRAM. Specimen adequacy: ?02 ?? Satisfactory for evaluation. No endocervical component is identified. Performed by: ? 02 ?? Brionna Mello Emergency Department Nurse ([facility]) QC reviewed by: ? 02 ?? Polina Simons, Emergency Department Nurse . ? 02 Note: ? Note ?02 [...] High,A-Abnormal,AA-Critical Abnormal Performed at: 02 WB ?[facility] [place] ?? [address] [facility] [place], [place] ??[phone] ?? Ludy Hector MD, Performed at: ??=G - [facility] [place] [address] [place], [place] ??[id number] Employee Benefits Specialist: Ludy Hector MD, Phone: ??[phone] Performed at: ??WB - [facility] [place] [address] [place], [place] ??[id number] Employee Benefits Specialist: Ludy Hector MD, Phone: ??[phone] Specimen (Source)Anatomical Location / LateralityCollection Method / [...] MemberRelationshipSpecialtyStart DateEnd Date Danny Payne MD [address] [address] PCP - GeneralFamily Medicine07/24/22 Danny Payne MD [address] [place] [id number] KAT - [employer]06/16/20
--- OUTSIDE RECORDS SUMMARY | 2025-01-20 14:55 | XMS_ITS | Clinical Summary ---
Author Organization [facility] Address [address] [place] [address] Care Team Providers Care Crm Architect Name Role Phone Unavailable Primary Care Provider Unavailabl e Allergies Active AllergyReactionsCriticalityNoted ZhpjFzadvqwkZvrbzmiaaluvQkzet34/05/2021 Other Reaction(s): hives CxxxkIuorVun45/05/2021 Other Reaction(s): Unknown MbcqgujoyBwzdgga74/25/2023 Other Reaction(s): body numbness Medications MedicationSigDispense QuantityRefillsLast FilledStart DateEnd DateStatus ondansetron ODT (Zofran-ODT) 4 mg disintegrating tablet Take 4 mg by mouth if needed.Active no.37/iron/folic acid (PRENATA ORAL) Take by mouth in the morning.Active Active Problems ProblemNoted DateDiagnosed Date28 weeks gestation of bdnzxvasi24/14/2025bnormal bleeding in menstrual cycle02/19/2024Status post arthroscopic reconstruction of anterior cruciate ligament of left knee using quadricepstendon autograft 05/10/2023cute pain of left knee4Chronic injuuwx2612/10/2022igarette uvlhux9712/10/2022yst of ovary12/10/2022Hashimoto's mydafee3512/10/2022Hypotension determined by /25/2023Juvenile osteochondrosis of tibial tuberosity 12/10/2022Non morbid obesity due to excess vfnuofwt17/25/2023ostural orthostatic tachycardia syndrome (POTS)12/14/20187056Nsghmylffvb47/15/2019Syncope and omyeoswq10/15/2019CommentsYes Encounters DateTypeDepartmentCare JmpcMpucjsjidad28/12/2025 3:20 PM EDTOffice Visit [facility] [address] [place] [address] Bibi Singh MD Syncope and collapse (Primary Dx); Neurocardiogenic syncope; 28 weeks gestation of ; Gabby's diseasefrom Last 3 Months Family History RelationNameStatusCommentsFatherAliveMotherAlive Social History Tobacco UseTypesPacks/DayYears UsedDateSmoking Tobacco: FormerCigarettes Smokeless Tobacco: Former Tobacco Cessation:Counseling Given: Not Answered Comments:Quite 6 month ago Alcohol UseStandard Drinks/WeekCommentsNot Currently0 (1 standard drink = 0.6 oz pure alcohol)[place] Safety & EnvironmentAnswerDate RecordedFear of Current or Ex-PartnerNot on file05/09/2023Emotionally AbusedNot on file05/09/2023hysically AbusedNot on file05/09/2023Sexually AbusedNot on file05/09/2023hysically or Sexually AbusedNot on file05/09/2023CommentsYesSex and Gender InformationValueDate RecordedSex Assigned at GdiubWsunfv19/08/2025 2:10 PM EDT Legal FztKkbgsm85/29/2022 11:55 PM EDTGender OitssayzXxrytb50/08/2025 2:10 PM EDTSexual OrientationHeterosexual or Pivjyqmx17/08/2025 2:10 PM EDT Last Filed Vital Signs Vital SignReadingTime TakenCommentsBlood Uxohwirh718/8009 4:02 PM EDT Rcgzt556011/27/2024 4:02 PM EDTTemperature--Respiratory Rate--Oxygen Okqbsglaiy02% 11/27/2024 4:02 PM EDTInhaled Oxygen Concentration--Mabguz19 kg (172 lb) 11/27/2024 4:02 PM PMBMruyyz870.1 cm (5' 5 )11/27/2024 4:02 PM EDTBody Mass Index28.62011/27/2024 4:02 PM EDT Plan of Treatment Health MaintenanceDue DateLast DoneCommentsIPV Vaccines (4 of 4 - 4-dose series) , 1999, 1999Depression Ewyqvikmh92/25/2012 Varicella Vaccines (2 of 2 - 2-dose childhood series)HPV Vaccines (1 - 3-dose series)06/09/2014dult Mdwqtki28COVID-19 Vaccine (1 - season)2024Influenza Vaccine (#1)2024Pap Smear Zoster Vaccines (1 of 2)Pneumococcal Vaccine: Pediatrics (0 to 5 Years) and At-Risk Patients (6 to 64 Years)Aged Out 03/26/2000No longer eligible based on patient's age to complete this topicHIB SqxjxmqvXeyawuxit42/27/2001, 09/11/2000, 03/26/2000, Additional history exists Meningococcal QuxmntuAjxcmdyas92/28/2017Meningococcal B VaccineAged OutNo longer eligible based on patient's age to complete this topicRotavirus VaccinesAged Out No longer eligible based on patient's age to complete this topic Insurance
--- OUTSIDE RECORDS SUMMARY | 2025-01-20 14:55 | XMS_ITS | Encounter Summary ---
Author Organization [facility] Address [address] [place] [address] Care Team Providers Care Dietitian Consultant Name Role Phone Danny Payne MD Primary Care Provider [phone] Danny Payne MD Unavailable [phone] Encounter Details DateTypeDepartmentCare Team (Latest Contact Info)Vevburrqios52/27/2025Clinisync Result Encounter [facility] Unsolicited Sintia Thomas, DO [address] [place] [place] [id number] Social History Tobacco UseTypesPacks/DayYears UsedDateSmoking Tobacco: Some [...] relatives?Once a week12/11/2022How often do you attend uatsdin or shinto services?More than 4 times per year12/11/2022o you belong to any clubs or organizations such as uatsdin groups, unions, fraCmilligan [employer]ments or athletic groups, or school groups?No12/11/2022How often [...] food, housing, medical care, and heating?Somewhat hard 12/11/2022[facility] [place] of Occupational Health - Occupational Stress QuestionnaireAnswerDate RecordedDo you feel stress - tense, restless, nervous, or anxious, or unable to sleep at night because yourmind is troubled all the time - these days?Only a scepil5812/11/2022Exercise Vital SignAnswerDate Recorded On average, how many [...] degree you have received?11th grade12/10/2022Estimated Date of GhgzbnfvGlbhodpvCni54/06/2025Based on last menstrual period of 05/16/2024Sex and Gender InformationValueDate RecordedSex Assigned at EfuzbKqjkjz17/25/2023 10:10 AM EDTLegal KuyLjqlrd48/15/2023 6:51 PM EDTGender DhlwzlzySwisfl40/25/2023 10:10 AM EDTSexual OrientationNot on filedocumented as of this encounter Plan of Treatment DateTypeDepartmentCare Team (Latest Contact Info)Upjttradiqd90/12/2025 1:40 PM ESTRoutine [facility] [address] [place] [place] [phone] Sintia Thomas DO [address] [place] [address] documented as of this encounter Procedures Procedure NamePriorityDate/TimeAssociated DiagnosisCommentsUS OB BPP W NON-GKXKIQ7501/11/2025 9:15 PM EDT documented in this encounter Results * US OB BPP W NON-STRESS (01/11/2025 9:15 PM EDT)Anatomical Region LateralityModalityOtherSpecimen (Source)Anatomical Location / Laterality Collection Method / VolumeCollection TimeReceived Time01/11/2025 9:15 PM EDT Narrative 01/11/2025 9:18 PM EDT [facility] ?[address] ? [place] [address] ? Ultrasound Report ? Signed ? Patient: ALETA CASTRO ?MR#: [id number] ?? : 2000 ?Acct:[id number] ?? Age/Sex: 24 / F ?ADM Date: 01/11/25 ?? Loc: US ? Attending Dr: Sintia Thomas D.O. ? Ordering Physician: Sintia Thomas D.O. ?? Date of Service: 01/11/25 ?? Procedure(s): US OB BPP w non-stress ?? Accession Number(s): [id number] ? cc: Sintia Thomas D.O.; DANNY PAYNE ? [facility] ? [address] ? [place] [address] ? Patient Name: ?? ALETA Acevedo RAKEL ? MRN: [facility]:[id number] ? date: 2000 ?Sex: F ?? Assigned Patient Location: [facility] ?? Current Patient Location: ? Accession/Order Number: [id number] ?? Exam Date: 01/11/2025 ??15:03 ?Report Date: 01/11/2025 ??21:15 ? At the request of: ?? SINTIA ??WILLIAM ??DO ? Procedure: ??US OB BPP w non-stress ? Ultrasound biophysical profile ? INDICATION: Gabby's disease. ? COMPARISON: 01/02/2025 ? FINDINGS: LYNN 15.6 cm. ??/ score biophysical profile. ??Fetus is cephalic ?? position with heart rate 141 beats per minutes. ? US/US OB BPP w non-stress ?? Impression: 8 out of 8 score biophysical profile. ? Impression dictated by: Deshaun Aguilar M.D. ??01/11/2025 9:15 PM ? Dictation Location: RADIO-PC-29 ? Electronically authenticated by: [id number] ??Y ?? Date: 01/11/2025 ??21:15 ? Dictated By: ?Deshaun Aguilar M.D. ? Signed By: ?01/11/ 2118 ? DD/ ? TD/TT: ? Level Vial Inside Grinder: Procedure Note Radiology, Radiologist, - 01/11/2025 [place] [address] Ultrasound Report Signed Patient: ALETA CASTRO NMR#: [id number] : 2000Acct:[id number] Age/Sex: 24 / FADM Date: 01/11/25 Loc: US Attending Dr: Sintia Thomas D.O. Ordering Physician: Sintia Thomas D.O. Date of Service: 01/11/25 Procedure(s): US OB BPP w non-stress Accession Number(s): [id number] cc: Sintia Thomas D.O.; DANNY PAYNE [place] [address] Patient Name: ALETA CASTRO MRN: [id number] date: 2000 Sex: F Assigned Patient Location: [facility] Current Patient Location: Accession/Order Number: [id number] Exam Date: 01/11/2025 15:03 Report Date: 01/11/2025 [...] Aguilar M.D. 01/11/2025 9:15 PM Dictation Location: [place] [address] Electronically authenticated by: [id number] Y Date: 1:15 Dictated By: Deshaun Aguilar M.D. Signed By:01/11/252117 DD/ 14 TD/TT: Level Vial Inside Grinder: Authorizing ProviderResult TypeResult StatusCorey William DOCLINISYNC IMAGINGFinal Result documented in this encounter Visit Diagnoses Not on filedocumented in this encounter Care Teams Team MemberRelationshipSpecialtyStart DateEnd Date Danny Payne MD [address] [place] [address] [facility] - [facility]22 Danny Payne MD [address] [place] [address] PCP - Ziggy [facility]06/16/20documented as of this encounter
--- OUTSIDE RECORDS SUMMARY | 2025-01-20 14:55 | XMS_ITS | Encounter Summary ---
Author Organization [facility] Address [address] [place] [address] Care Team Providers Care Director Of Human Resources Name Role Phone Danny cShuler MD Primary Care Provider [phone] Danny Schuler MD Unavailable [phone] Encounter Details DateTypeDepartmentCare Team (Latest Contact Info)Xuwdmlrwcru76/05/2025amboo flowsheet KYE [place] OBGYKristina [address] [place] [phone] Pretty Chaidez PA [address] [place], [place] [address] Social History Tobacco UseTypesPacks/DayYears UsedDateSmoking Tobacco: Some DaysCigarettes Smokeless Tobacco: NeverAlcohol UseStandard Drinks/WeekCommentsNot Currently0 (1 standard drink = 0.6 oz pure alcohol)2-4 drinks per weekHumiliation, Afraid, Rape, and Kick questionnaireAnswerDate RecordedWithin the last year, have you been afraid of your partner or ex-partner?12/11/2022Within the last year, have you been humiliated or emotionally abused in other ways by your partner or ex-partner?No12/11/2022Within the last year, have you been kicked, hit, slapped, or otherwise physically hurt by your partner or ex-partner?12/11/2022Within the last year, have you been raped or forced to have any kind of sexual activity by your partner or ex-partner?No12/11/2022Social Connection and Isolation Panel AnswerDate RecordedIn a typical week, how many times do you talk on the phone with family, friends, or neighbors?Three times a week12/11/2022How often do you get together with friends or relatives?Once a week12/11/2022How often do you attend synagogue or temple services?More than 4 times per year12/11/2022o you belong to any clubs or organizations such as synagogue groups, unions, fraInnometrics or athletic groups, or school groups?No12/11/2022How often [...] housing, medical care, and heating?Somewhat hard 12/11/2022[facility] [place] of Occupational Health - Occupational Stress QuestionnaireAnswerDate RecordedDo you feel stress - tense, restless, nervous, or anxious, or unable to sleep at night because yourmind is troubled all the time - these days?Only a jnvboo0212/11/2022Exercise Vital SignAnswerDate Recorded On average, how many days per week do you engage in moderate to strenuous exercise (like a brisk walk)?7 days12/11/2022On average, how many minutes do you engage in exercise at this level?60 min12/11/2022Hunger Vital SignAnswerDate RecordedWithin the past 12 months, you worried that your food would run out before you got the money to buymore.Never true09/26/2023Within the past 12 months, the food you [...] or the highest degree you have received?11th grade3Estimated Date of ZpzekpkpCzpwszjzMrz03/06/2025Based on last menstrual period of 05/16/2024Sex and Gender InformationValueDate RecordedSex Assigned at ZwdftHecpcg31/25/2023 10:10 AM EDTLegal IopSemajc30/15/2023 6:51 PM EDTGender BhixsxajTucddm13/25/2023 10:10 AM EDTSexual OrientationNot on filedocumented as of this encounter Plan of Treatment DateTypeDepartmentCare Team (Latest Contact Info)Bdrtpkmgtrn00/12/2025 1:40 PM ESTRoutine [facility] [address] [place] [address] Doc Thomas DO [address] [place] [address] documented as of this encounter Visit Diagnoses Not on filedocumented in this encounter Care Teams Team MemberRelationshipSpecialtyStart DateEnd Date Danny Schuler MD [address] [address] PCP - GeneralFamily Medicine07/24/22 Danny Schuler MD [address] [address] PCP - [employer]06/16/20documented as of this encounter
--- OUTSIDE RECORDS SUMMARY | 2025-01-20 14:57 | XMS_ITS | CCD ---
Author Organization [facility] CliniSyne Care Team Providers Care Furniture Crater Name Role Phone BECERRIL, DAVID P Unavailable [...] able Rosalie Payne MD Primary Care Provider [phone] Pocanaly, Myron Washburn Admitting Unavailable PocosMyron Referring Unavailable Pocos, Myron Washburn Attending Unavailable Pocos, Myron Washburn Referring Unavailable Pocos, Myron Washburn Attending Unavailable Myron Marroquin Admitting Unavailable MD Rosalie Payne Primary Care Provider [phone] DO Marcelle Espinosa Attending Provider [phone] Marcelle Espinosa Attending Unavailable Marcelle Espinosa Admitting Unavailable Rosalie Payne Primary Care Unavailable Rosalie Payne MD Primary Care Provider Rosalie Payne MD Primary Care Provider [phone] Rosalie Payne MD Unavailable LESA SINGH Attending Unavailable WILLIAM, DOC Attending Unavailable LUNA STEEN Attending Unavailable LUNA STEEN Attending Unavailable PRETTY MCKEON Attending Unavailable WILLIAM, DOC Attending Unavailable PRETTY MKCEON Attending Unavailable WILLIAM, DOC Attending Unavailable ROSALIE PAYNE Attending Unavailable WILLIAMDOC YOUNGBLOOD Attending Unavailable MYRON MARROQUIN Attending Unavailable Allergies Allergy ClassificationReported Allergen(s)Allergy TypeDate of OnsetReaction(s) FacilityLatex (1 source)LatexSubstance Grwxynt76-99-0990OakwEgomm HealthMacrolides (antibiotic) (1 source)AzithromycinDrug Hooeuae94-70-5570MheumXbngr Health (20 sources)Azithromycin; Translations: [azithromycin]Drug Xzborkg17-00-2365 [facility] (11 sources)Latex; Translations: [Latex]Propensity to adverse reactions to drug 16-79-9713UfjoCcdpc Health (1 source)AzithromycinDrug Edaplde06-60-7893Suu [facility] Repository (1 source)natural latex rubberDrug allergy (disorder)[facility] Repository (2 sources)Banana Extract; Translations: [Banana]Drug AllergyVomiting (disorder) [facility] (20 sources)Midodrine; Translations: [midodrine]Drug Qlkitme93-71-8255[facility]neyudzvGreen [facility] Hospital (20 sources)LatexAllergy to fnegcdxgl61-94-8576OutdFFFC Healthcare (1 source)AzithromycinDrug Hhcuqqb14-84-4909YtrkoeseaUniversity [facility]als [facility] Rep[facility] (1 source)LatexDrug allergy (disorder)76-44-6204ZbdwhorejUniversity Hospitals [facility] Repository Medications Current Medications MedicationDrug Class(es)DatesSig (Normalized)Sig (Original)[id number] 200 actuat albuterol 0.09 mg/actuat metered dose inhaler (2 sources)beta2-Adrenergic AgonistStart: 13-71-8216dteq 2 puff(s) by inhalation four times daily as neededAlbuterol Sulfate HFA 108 (90 Base) MCG/ACT 2 puffs Inhalation 4 times a day prn Aug, ActiveStart: 71-40-7859prng 2 puff(s) by inhalation four times daily as neededAlbuterol Sulfate HFA 108 (90 Base) MCG/ACT 2 puffs Inhalation 4 times a day prn Aug, Not-Taking/PRN fluconazole 150 mg oral tablet (2 sources)Azole AntifungalStart: 12-09-2024 End: 98-62-5411crwmpdpgsez (Diflucan) 150 MG tablet Indications: Yeast infection Take 1 tablet (150 mg) by mouth 1(one) time for 1 dose Repeat in 7 days if symptoms persist. 2 tablet 12/09/2024 12/09/2024 Activefluticasone propionate 0.05 mg/actuat metered dose nasal spray (4 sources)CorticosteroidStart: 68-90-6248ideqqxivjgi (Flonase) 50 MCG/ACT nasal sprayStart: 12-57-6856yztg 1 spray(s) nasal route once dailyFluticasone Propionate 50 MCG/ACT 1 spray in each nostril Nasally Once a day for 14 15 Mar, 2023 ActiveStart: 03-43-9889mvdj 2 spray(s) nasal route once daily as needed Fluticasone Propionate 50 MCG/ACT 2 sprays Nasally Once a day for 14 day(s) Aug, Not-Taking/PRNStart: 38-61-2921syxv 2 spray(s) nasal route once daily Fluticasone Propionate 50 MCG/ACT 2 sprays Nasally Once a day for 14 day(s) Aug, Activeibuprofen 600 mg oral tablet (20 sources)Nonsteroidal Anti-inflammatory DrugStart: 61-62-3903jirs 1 tablet by mouth four times daily as needed for painibuprofen (ADVIL;MOTRIN) 600 MG tablet Take 1 tablet by mouth 4 times daily as needed for Pain 30 tablet 0 12/14/2020 Active End: 75-67-6396xigetrrkm 200 MG tablet Take by mouth. 07/16/2024 Discontinued magnesium oxide 400 mg oral tablet (5 sources)Start: 07-16-2024 End: 61-57-0003qmbf 1 tablet by mouth once dailymagnesium oxide (Mag-Ox) 400 MG tablet Indications: Cluster headache, not intractable, unspecified chronicity pattern Take 1 tablet (400 mg) by mouth Daily 30 tablet 6 07/16/2024 08/15/2024 Activeondansetron 4 mg oral tablet (20 sources)Serotonin-3 Receptor AntagonistStart: 50-99-4358hiiu 1 tablet by mouth every six hours as needed for nausea and nausea, then take 1 tablet by mouthevery six hours as needed for nausea and nauseaondansetron (Zofran) 4 MG tablet Indications: Nausea and vomiting in ([facility]) Take 1 tablet (4 mg) by mouth every 6 (six) hours if needed for nausea or vomiting for up to 30 doses Take 1 tablet by mouth every 6 hours as needed for nausea. 30 tablet 12/23/2024 ActiveStart: 10-05-2024 End: 86-60-5919jhod 1 tablet by mouth every six hours for nauseaondansetron ODT (Zofran-ODT) 4 MG disintegrating tablet Indications: Nausea and vomiting during ([facility]) Take 1 tablet (4 mg) by mouth every 6 (six) hours if needed for nausea or vomiting 30 tablet 3 10/05/2024 11/04/2024 ActiveStart: 08-26-2024 End: 40-72-9690figm 1 tablet by mouth every six hours for nauseaondansetron ODT (Zofran-ODT) 4 MG disintegrating tablet Indications: Nausea and vomiting during ([facility]) Take 1 tablet (4 mg) by mouth every 6 (six) hours if needed for nausea or vomiting 30 tablet 3 08/26/2024 09/30/2024 ActiveStart: 07-06-2024 End: 33-69-1694gpdt 1 tablet by mouth every six hours for nauseaondansetron ODT (Zofran-ODT) 4 MG disintegrating tablet Indications: Nausea and vomiting during Take 1 tablet (4 mg) by mouth every 6 (six) hours if needed for nausea or vomiting 30 tablet 2 07/06/2024 08/05/2024 Activepenicillin v potassium 500 mg oral tablet (1 source)Start: 17-62-8747bhsd 1 tablet by mouth every eight hoursPenicillin V Potassium 500 MG 1 tablet Orally tid for 10 day(s) Apr, Active polysaccharide iron complex 391 mg oral capsule (5 sources)Start: 11-05-2024 End: 96-74-9805lcpf 1 capsule by mouth once dailyiron polysaccharides (ProFe) 391.3 (180 Fe) MG capsule Indications: Low hemoglobin Take 1 capsule (391.3 mg) by mouth Daily 30 capsule 3 11/05/2024 12/05/2024 ActivetiZANidine 4 mg oral tablet (2 sources)Central alpha-2 Adrenergic AgonistStart: 12-38-1231hzkm 1 tablet by mouth every eight hours as needed for paintiZANidine (ZANAFLEX) 4 MG tablet Take 1 tablet by mouth every 8 hours as needed (pain and muscle tension/cramps) 10 tablet 0 12/14/2020 Active Completed/Discontinued Medications MedicationDrug Class(es)DatesSig (Normalized)Sig (Original)acetaminophen 325 mg oral tablet (1 source)Start: 09-19-2020 End: 34-06-4151zppfofdxiakyj (TYLENOL) tablet 650 mgCitalopram (7 sources)Serotonin Reuptake InhibitorCitalopram Hydrobromide Not-Taking/PRN take 1 tablet by mouth once dailycitalopram (CELEXA) 20 MG tablet Take 20 mg by mouth daily 0 ActiveCitalopram Hydrobromide Activeclotrimazole 10 mg oral lozenge (3 sources)Azole AntifungalStart: 92-43-3346Fxvbiialgnqe 10 MG 1 wenceslao Mouth/Throat Three times a day for 7 day(s) Apr, Not-Taking/PRN medroxyPROGESTERone (4 sources)ProgestinDepo-Provera Not-Taking/PRNDepo-Provera Activemetoclopramide 10 mg oral tablet (12 sources)Dopamine-2 Receptor AntagonistStart: 07-16-2024 End: 25-86-1336chmwkgsmyvrqwb (Reglan) 10 MG tablet Indications: Nausea/vomiting in [...] tablet (2 sources)Nonsteroidal Anti-inflammatory DrugStart: 05-24-2021 End: 81-60-1983cczwhqwf sodium (ANAPROX) tablet 550 mgStart: 43-79-0548tdht 1 tablet by mouth twice daily at mealtimenaproxen (NAPROSYN) 500 MG tablet Take 1 tablet by mouth 2 times daily (with meals) 20 tablet 1 05/24/2021 Active pantoprazole 40 mg delayed release oral tablet (17 sources)Proton Pump InhibitorStart: 02-17-2024 End: 13-97-7056vtjh 1 tablet by mouth before mealtimepantoprazole (ProtoNix) 40 MG EC tablet Take 40 mg by mouth in the morning. Take before meals. 02/17/2024 09/30/2024 DiscontinuedpredniSONE 20 mg oral tablet (3 sources)Start: 14-56-3347ascg 1 tablet by mouth every twelve hourspredniSONE 20 MG 1 tablet Orally 2 times a day for 5 day(s) Aug, Not-Taking/PRN Start: 58-25-9581yyub 1 tablet by mouth every twelve hourspredniSONE 20 MG 1 tablet Orally bid for 5 day(s) Apr, Active Problems Active Problems Problem ClassificationProblemDateDocumented DateEpisodic/ChronicAbdominal pain (11 sources)Pelvic and perineal pain; Translations: [Right lower quadrant pain] Onset: 84-38-9315GlrtyupnCdjkxhk dysrhythmias (20 sources)Postural orthostatic tachycardia syndrome ; Translations: [Postural orthostatic tachycardia syndrome (POTS)]Onset: 809622-59-0242Vhbdyam Cardiac dysrhythmias (4 sources)Palpitations; Translations: [Palpitations]20-65-9146Hyagpfno Coagulation and hemorrhagic disorders (1 source)Qualitative platelet defects; 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]Onset: 98-79-8547SolmwoiLsgkyrlzjh disorders (4 sources)Gastroesophageal reflux disease; Translations: [Gastro-esophageal reflux disease without esophagitis]09-31-8758NicwebeFyfcmyiq; including migraine (1 source)Cluster headache; Translations: [Cluster headache syndrome, unspecified, not intractable]08-35-3792IaxtlqyEujjowhuwnshd and screening for infectious disease (4 sources)Contact with and (suspected) exposure to other viral communicable diseases; Translations: [Exposureto sexually transmissible disorder]Onset: 04-07-2021 Resolved: 72-77-2278SxztcasxCorsuzd and fatigue (20 sources)Fatigue; Translations: [Chronic fatigue, unspecified]Onset: 020192-48-4219GfvdmyfQuaqbblqc disorders (20 sources)Disorder of menstruation; Translations: [Irregular menstruation, unspecified]Onset: 536740-26-2245VoywwtjJpvknjh (3 sources)Candidal stomatitis; Translations: [Mycosis]Onset: 05-11-2021 Resolved: 08-65-1860CmlrpykqEqbvpg and vomiting (4 sources)Nausea; Translations: [Nausea]51-06-7897BesbfmkkWhghm bone disease and musculoskeletal deformities (20 sources)Patricia Schlatter disease; 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]Onset: 353044-62-8056GyuyaukQcxjz circulatory disease (1 source)Postural orthostatic tachycardia sbcmcyhi39-32-3626HijkuefzTootr complications of (1 source)Vomiting of , unspecified; Translations: [Unspecified vomiting of , unspecified as to episode of care or not applicable] 78-37-7576RwtnbcngKzkro gastrointestinal disorders (2 sources)Diarrhea; Translations: [Diarrhea, unspecified]22-54-5869Uzydmget Other gastrointestinal disorders (2 sources)Diarrhea, unspecified; Translations: [Diarrhea]73-79-8928Thksrtmk Other gastrointestinal disorders (1 source)Dysphagia; Translations: [Dysphagia, unspecified]58-09-8027Sueuleyz Other gastrointestinal disorders (1 source)Dysphagia, unspecified; Translations: [Dysphagia, unspecified] 43-93-5866HpxaluqiGxzox injuries and conditions due to external causes (1 source)Closed injury of head; Translations: [Unspecified injury of head, initial encounter]EpisodicOther injuries and conditions due to external causes (1 source)Injury of coccyx; Translations: [Unspecified injury of lower back, initial encounter]EpisodicOther injuries and conditions due to external causes (2 sources)Injury of left knee; Translations: [Unspecified injury of left lower leg, initial encounter]64-97-2228ZicnrtyoWeeex nutritional; endocrine; and metabolic disorders (20 sources)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 imbalance; Translations: [Other obesity due to excess calories]Onset: 737974-40-6220TyjidraNvtsz nutritional; endocrine; and metabolic disorders (1 source)H/O: -52-3163FteguwftKrois and delivery including normal (20 sources); Translations: [Encounter for supervision of normal , unspecified, unspecified trimester]93-17-1062MxymbvmzQzvfb screening for suspected conditions (not mental disorders or infectious disease) (8 sources)Encounter for screening for malignant neoplasm of cervix; Translations: [Patient encounter status]Onset: 51-56-2734ImhgxntlNolsw upper respiratory infections (9 sources)Streptococcal sore throat; Translations: [Strep throat]Onset: 05-01-2021 Resolved: 12-16-6584NjhyvzqlPgrgpnpk codes; unclassified (2 sources)Gestation period, 11 weeks; Translations: [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 ]34-23-2512JpybkalxZavogvst codes; unclassified (2 sources)Gestation period, 15 weeks; Translations: [15 weeks gestation of ]31-58-0335MmalzgvkTlpoumap codes; unclassified (2 sources)Gestation period, 19 weeks; Translations: [19 weeks gestation of ]37-74-8033QvgnqcqsHqpdjuak codes; unclassified (2 sources)Gestation period, 23 weeks; Translations: [23 weeks gestation of ]39-88-7018EymfepfqTvtgfoub codes; unclassified (2 sources)Gestation period, 27 weeks; Translations: [27 weeks gestation of ]39-96-2022YeltcfgdNidguajx codes; unclassified (2 sources)Gestation period, 29 weeks; Translations: [29 weeks gestation of ]71-59-9694LwwervepKyhzsggr codes; unclassified (2 sources)Gestation period, 31 weeks; Translations: [31 weeks gestation of ]08-86-9412WpgrmrioQumhiafq codes; unclassified (2 sources)Gestation period, 33 weeks; Translations: [33 weeks gestation of ]59-36-8704OesbipojUcjftqjj codes; unclassified (2 sources)Gestation period, 35 weeks; Translations: [35 weeks gestation of ]48-18-0863UtyvcpttNqnnluruy-related disorders (20 sources)Cigarette smoker ; Translations: [Nicotine dependence, cigarettes, uncomplicated]Onset: 483053-49-0148TsmwhutAvamtvvcekt injury; contusion (1 source)Contusion of left knee; Translations: [Contusion of left knee, initial encounter]EpisodicSyncope (2 sources)Syncope; Translations: [Syncope]Onset: 79-60-1860ZessowyfLjaillz disorders (20 sources)Evan thyroiditis; Translations: [Autoimmune thyroiditis]Onset: 104892-40-6499GpmleniKukeqgduuhsp (2 sources)Unknown / UNK(Unknown)Onset: 45-48-2246Nysessbymkzo (2 sources)New Patient; Translations: [New Patient]Onset: 87-09-1749Kmqpccjzipvz (2 sources)POTSOnset: 11-27-2024 Past or Other Problems Problem ClassificationProblemDateDocumented DateEpisodic/ChronicChronic obstructive pulmonary disease and bronchiectasis (1 source)Bronchitis, not specified as acute or chronicOnset: 08-21-2021 Resolved: 89-59-6632HholmyuhTvhloovmp (5 sources)Influenza; Translations: [Influenza A]Other circulatory disease (4 sources)Orthostatic hypotension; Translations: [ORTHOSTATIC HYPOTENSION] Onset: 90-45-6064UxwkbmveXkytv circulatory disease (20 sources)Low blood pressure; Translations: [Hypotension, unspecified]Onset: 244957-98-1420FowvpgwrEzhjk non-traumatic joint disorders (20 sources)Pain in left knee; Translations: [Pain in joint, lower leg]Onset: 803148-35-2824UqmmunctBidwg nutritional; endocrine; and metabolic disorders (20 sources)Body mass index 25-29 - overweight; Translations: [Overweight]Onset: 12-10-2022 Resolved: 639711-82-9795NokeizapEtuvhdq cyst (20 sources)Cyst of ovary; Translations: [Unspecified ovarian cyst, unspecified side]Onset: 800265-04-4722Fadkngkc Results Test NameValueInterpretationReference RangeFacilityUrinalysis macro (dipstick) panel (U)on 64-62-9210Gfrmqqvon, UANegativeNegative - 4(70) +++ mg/dLNOMS HealthcareBlood, UANegativeNegative - 50 Randall/mcLNOMS HealthcareClarity, UAClear NOMS HealthcareColor, UAYellowNOMS HealthcareGlucose, UATraceNegative - 2000(110) ++++ mg/dLNOMS HealthcareInterpretation and review of laboratory resultsAbnormalNOMS HealthcareKetones, UANegativeNegative - 160(16) ++++ mg/dL NOMS HealthcareLeukocytes, UANegativeNegative - 500+++ Rick/mcLNOMS Healthcare Nitrite, UANegativeNegative - PositiveNOMS HealthcarepH, UA5.55 - 9NOMS HealthcareProtein, UA1+Negative - 2000(20) ++++ mg/dLNOMS HealthcareSpec Grav, UA1.0301 - 1.03NOMS HealthcareUrobilinogen, UA1.00.2 - 12 mg/dLNOMS Healthcare NOMS HealthcareUS OB BPP W NON-STRESSon 55-08-3354[address] [address] Ultrasound Report Signed Patient: ALETA CASTRO MR#: [id number] : 2000 Acct:[id number] Age/Sex: 24 / F ADM Date: 01/11/25 Loc: US Attending Dr: Doc Thomas D.O. Ordering Physician: Doc Thomas D.O. Date of Service: 01/11/25 Procedure(s): US OB BPP w non-stress Accession Number(s): [id number] cc: Doc Thomas D.O.; ROSALIE PAYNE [address] [address] Patient Name: ALETA CASTRO MRN: [id number] date: 2000 Sex: F Assigned Patient Location: [facility] Current Patient Location: Accession/Order Number: [id number] Exam Date: 01/11/2025 15:03 Report Date: 01/11/2025 21:15 At the request of: DOC THOMAS DO Procedure: US OB BPP w non-stress Ultrasound biophysical profile INDICATION: Evan's disease. COMPARISON: 01/02/2025 FINDINGS: LYNN 15.6 cm. 8/8 score biophysical profile. Fetus is cephalic position with heart rate 141 beats per minutes. US/US OB BPP w non-stress Impression: 8 out of 8 score biophysical profile. Impression dictated by: Deshaun Aguilar M.D. 01/11/2025 9:15 PM Dictation Location: [place] [address] Electronically authenticated by: [id number] Y Date: 01/11/2025 21:15 Dictated By: Deshaun Aguilar M.D. Signed By: 01/11/252117 DD/ 14 TD/TT: Napkin Machine Operator:TBHRadiology, Radiologist, MD - 01/11/2025 [place] [address] Ultrasound Report Signed Patient: ALETA CASTRO MR#: [id number] : 2000 Acct:[id number] Age/Sex: 24 / F ADM Date: 01/11/25 Loc: US Attending Dr: Doc Thomas D.O. Ordering Physician: Doc Thomas D.O. Date of Service: 01/11/25 Procedure(s): US OB BPP w non-stress Accession Number(s): [id number] cc: Dco Thomas D.O.; ROSALIE PAYNE The [address] [address] Patient Name: ALETA CASTRO MRN: [id number] date: 2000 Sex: F Assigned Patient Location: [facility] Current Patient Location: Accession/Order Number: [id number] Exam Date: 01/11/2025 15:03 Report Date: 01/11/2025 21:15 At the request of: DOC THOMAS DO Procedure: US OB BPP w non-stress Ultrasound biophysical profile INDICATION: Evan's disease. COMPARISON: 01/02/2025 FINDINGS: LYNN 15.6 cm. 8/8 score biophysical profile. Fetus is cephalic position with heart rate 141 beats per minutes. US/US OB BPP w non-stress Impression: 8 out of 8 score biophysical profile. Impression dictated by: Deshaun Aguilar M.D. 01/11/2025 9:15 PM Dictation Location: [place] [address] Electronically authenticated by: [id number] Y Date: 01/11/2025 21:15 Dictated By: Deshaun Aguilar M.D. Signed By: 01/11/252117 DD/ 14 TD/TT: Napkin Machine Operator: [facility] HealthcareRadiology Study observation (narrative)NOMS HealthcareUS OB BPP W NON-STRESSOrdered By: Radiologist Radiology on 69-66-7880HO[facility] Work Phone: Urinalysis macro (dipstick) panel (U)on 01-05-2025 Bilirubin, UANegativeNegative - 4(70) +++ mg/dLNOMS HealthcareBlood, UANegative Negative - 50 Randall/mcLNOMS HealthcareClarity, UAClearNOMS HealthcareColor, UA YellowNOMS HealthcareGlucose, UA3+Negative - 1999(110) ++++ mg/dLNOCT Healthcare Interpretation and review of laboratory resultsAbnormalNOMS HealthcareKetones, UAPositiveNegative - 160(16) ++++ mg/dLNOMS HealthcareLeukocytes, UATrace Negative - 500+++ Rick/mcLNOMS HealthcareNitrite, UANegativeNegative - Positive NOMS HealthcarepH, UA6.55 - 9NOMS HealthcareProtein, UATraceNegative - 2000(20) ++++ mg/dLNOMS HealthcareSpec Grav, UA1.0101 - 1.03NOMS HealthcareUrobilinogen, UA2.00.2 - 12 mg/dLNOMS HealthcareNOMS HealthcareUS OB BPP W NON-STRESSon 52-18-6774[place] [address] Ultrasound Report Signed Patient: ALETA CASTRO MR#: [id number] : 2000 Acct:[id number] Age/Sex: 24 / F ADM Date: 01/02/25 Loc: US Attending Dr: Doc Thomas D.O. Ordering Physician: Doc Thomas D.O. Date of Service: 01/02/25 Procedure(s): US OB BPP w non-stress Accession Number(s): [id number] cc: Doc Thomas D.O.; ROSALIE PAYNE [place] [address] Patient Name: ALETA CASTRO MRN: [id number] date: 2000 Sex: F Assigned Patient Location: [facility] Current Patient Location: Accession/Order Number: [id number] Exam Date: 01/02/2025 09:00 Report Date: 01/02/2025 [...] Dalton M.D. 01/02/2025 3:02 PM Dictation Location: [place] [address] Electronically authenticated by: [id number] Y Date: 01/02/2025 15:02 Dictated By: Emmanuel Dalton M.D. Signed By: 01/02/25 1505 DD/ 150 TD/TT: Napkin Machine Operator:MARTINEadiology, Radiologist, - 01/02/2025 [place] [address] Ultrasound Report Signed Patient: ALETA CASTRO MR#: [id number] : 2000 Acct:[id number] Age/Sex: 24 / F ADM Date: 01/02/25 Loc: US Attending Dr: Doc Thomas D.O. Ordering Physician: Doc Thomas D.O. Date of Service: 01/02/25 Procedure(s): US OB BPP w non-stress Accession Number(s): [id number] cc: Doc Thomas D.O.; ROSALIE PAYNE [facility] [place] [address] Patient Name: ALETA CASTRO MRN: [id number] date: 2000 Sex: F Assigned Patient Location: [facility] Current Patient Location: Accession/Order Number: [id number] Exam Date: 01/02/2025 09:00 Report Date: 01/02/2025 [...] Dalton M.D. 01/02/2025 3:02 PM Dictation Location: [place] [address] Electronically authenticated by: [id number] Y Date: 01/02/2025 15:02 Dictated By: Emmanuel Dalton M.D. Signed By: 01/02/25 1505 DD/ 1502 TD/TT: Napkin Machine Operator: K[facility] HealthcareRadiology Study observation (narrative)NOMS HealthcareUS OB BPP W NON-STRESSOrdered By: Radiologist Radiology on 43-64-7640NBNZSainte Genevieve County [facility] Work Phone: aLL THYROID STIM HORMONEon 43-38-3831Actjyijytyrpty and review of laboratory resultsAbnormalNOCrittenton Behavioral Health Qn0.131 m[IU]/LLow [facility] HealthcareCLINISYNCNOMS HealthcareUS OB BPP W NON-STRESSon 12-26-2024 [place] [address] Ultrasound Report Signed Patient: ALETA CASTRO MR#: [id number] : 2000 Acct:[id number] Age/Sex: 24 / F ADM Date: 12/26/24 Loc: US Attending Dr: Doc Thomas D.O. Ordering Physician: Doc Thomas D.O. Date of Service: 12/26/24 Procedure(s): US OB BPP w non-stress Accession Number(s): [id number] cc: Doc Thomas D.O.; ROSALIE PAYNE [place] [address] Patient Name: ALETA CASTRO MRN: [id number] date: 2000 Sex: F Assigned Patient Location: US Current Patient Location: Accession/Order Number: [id number] Exam Date: 12/26/2024 09:00 Report Date: 12/26/2024 [...] AM Dictation Location: [facility]29 Electronically authenticated by: [id number] Y Date: 12/26/2024 11:19 Dictated By: Deshaun Aguilar M.D. Signed By: 12/26/24 1122 DD/ 1119 TD/TT: Napkin Machine Operator:TBHRadiology, Radiologist, - 12/26/2024 [place] [address] Ultrasound Report Signed Patient: ALETA CASTRO MR#: [id number] : 2000 Acct:[id number] Age/Sex: 24 / F ADM Date: 12/26/24 Loc: US Attending Dr: Doc Thomas D.O. Ordering Physician: Doc Thomas D.O. Date of Service: 12/26/24 Procedure(s): US OB BPP w non-stress Accession Number(s): [id number] cc: Doc Thomas D.O.; ROSALIE PAYNE [place] [address] Patient Name: ALETA CASTRO MRN: [id number] date: 2000 Sex: F Assigned Patient Location: Current Patient Location: Accession/Order Number: [id number] Exam Date: 12/26/2024 09:00 Report Date: 12/26/2024 [...] AM Dictation Location: [facility] Electronically authenticated by: [id number] Y Date: 12/26/2024 11:19 Dictated By: Deshaun Aguilar M.D. Signed By: 12/26/24 1122 DD/ 1119 TD/TT: Napkin Machine Operator: KYE HealthcareRadiology Study observation (narrative)NOMRubia HealthcareUS OB BPP W NON-STRESSOrdered By: Radiologist Radiology on 55-50-4218LS[facility] Healthcare Work Phone: US OB GROWTHon [phone] [address] Ultrasound Report Signed Patient: ALETA CASTRO MR#: [id number] : 2000 Acct:[id number] Age/Sex: 24 / F ADM Date: 12/26/24 Loc: US Attending Dr: Doc Thomas D.O. Ordering Physician: Doc Thomas D.O. Date of Service: 12/26/24 Procedure(s): US OB growth Accession Number(s): [id number] cc: Doc Thomas D.O.; ROSALIE PYANE [place] [address] Patient Name: ALETA CASTRO MRN: [id number] date: 2000 Sex: F Assigned Patient Location: Current Patient Location: Accession/Order Number: [id number] Exam Date: 12/26/2024 09:00 Report Date: 12/26/2024 11:31 At the request of: DOC THOMAS DO Procedure: US OB growth Obstetric ultrasound for growth INDICATION: Evan's disease FINDINGS: Single live anterior cephalic presentation longitudinal lie. Amniotic fluid index 12.4 cm between the gestational age fifth and 95th percentile. Largest pocket of fluid 5.1 cm. heart rate 1 52 bpm. motion documented by the clearance representative.. Estimated weight 2093 g 71.4%. Gestation age 32 weeks and 0 days. Biparietal diameter 7.93 m. Head circumference 30.7 cm. Otherwise the 10.6 cm. Abdominal circumference 28.9 cm. Femur length 6.4 cm. US/US OB growth IMPRESSION: Single live intrauterine of approximately 30 weeks Impression dictated by: Deshaun Aguilar M.D. 12/26/2024 11:31 AM Dictation Location: [place] [address] Electronically authenticated by: [id number] Y Date: 12/26/2024 11:31 Dictated By: Deshaun Aguilar M.D. Signed By: 12/26/24 1133 DD/ 1131 TD/TT: Napkin Machine Operator:TBHRadiology, Radiologist, - 12/26/2024 [place] [address] Ultrasound Report Signed Patient: ALETA CASTRO MR#: [id number] : 2000 Acct:[id number] Age/Sex: 24 / F ADM Date: 12/26/24 Loc: US Attending Dr: Doc Thomas D.O. Ordering Physician: Doc Thomas D.O. Date of Service: 12/26/24 Procedure(s): US OB growth Accession Number(s): [id number] cc: Doc Thomas D.O.; ROSALIE PAYNE [place] [id number] Patient Name: ALETA CASTRO MRN: [id number] date: 2000 Sex: F Assigned Patient Location: Current Patient Location: Accession/Order Number: [id number] Exam Date: 12/26/2024 09:00 Report Date: 12/26/2024 11:31 At the request of: DOC THOMAS DO Procedure: US OB growth Obstetric ultrasound for growth INDICATION: Evan's disease FINDINGS: Single live anterior cephalic presentation longitudinal lie. Amniotic fluid index 12.4 cm between the gestational age fifth and 95th percentile. Largest pocket of fluid 5.1 cm. heart rate 1 52 bpm. motion documented by the clearance representative.. Estimated weight 2093 g 71.4%. Gestation age 32 weeks and 0 days. Biparietal diameter 7.93 m. Head circumference 30.7 cm. Otherwise the 10.6 cm. Abdominal circumference 28.9 cm. Femur length 6.4 cm. US/US OB growth IMPRESSION: Single live intrauterine of approximately 30 weeks Impression dictated by: Deshaun Aguilar M.D. 12/26/2024 11:31 AM Dictation Location: [place] [address] Electronically authenticated by: [id number] Y Date: 12/26/2024 11:31 Dictated By: Deshaun Aguilar M.D. Signed By: 12/26/24 1133 DD/ 1131 TD/TT: Napkin Machine Operator: [facility] HealthcareRadiology Study observation (narrative)NOMS HealthcareUS OB GROWTHOrdered By: Radiologist Radiology on 21-79-1732[facility] Work Phone: Urinalysis macro (dipstick) panel [...] mg/dLNOMS HealthcareNOMS HealthcareUrinalysis macro (dipstick) panel (U)on 50-75-3667Qixptmceh, UANegativeNegative - 4(70) +++ mg/dLNOMS HealthcareBlood, UANegativeNegative [...] UA0.20.2 - 12 mg/dLNOMS HealthcareNOMS HealthcareOffice Visiton 87-16-1877Glypmc-up visit [id number] Aleta Castro 2000 F Date Provider Department Center 11/27/2024 15524-TZIWTBLESA SINGH TRES [place] Family History Family Status - Relation Status Age at Mother Alive Father Alive Level of Service:69588 CO OFFICE/OUTPATIENT NEW LOW MDM 30 MINUTES Reason for Visit and Comments: New Patient [632] - New patient here today to establish care with cardiology Syncope [506] POTS [Other] Positive tilt table [Other] 6 months [Other]NormalUnMansfield HospitalUrinalysis macro (dipstick) panel (U)on 26-00-9747Nzklfivin, UAPositiveNegative - 4(70) +++ mg/dLNOMS HealthcareComment on [...] UA1.031 - 1.03NOMS HealthcareUrobilinogen, UA0.20.2 - 12 mg/dLUNC Health Johnston ClaytonCA ECHO DOPPLER COMPLETEon 71-81-2247KrcJohn[place] [address] Cardiology Report Signed Patient: ALETA CASTRO MR#: [id number] : 2000 Acct:[id number] Age/Sex: 24 / F ADM Date: 11/12/24 Loc: CARD Attending Dr: Luna Steen Ordering Physician: Luna Steen Date of Service: 11/12/24 Procedure(s): CA echo doppler complete Accession Number(s): [id number] cc: Luna Steen; ROSALIE PAYNE Patient Name: ALETA CASTRO MR#: [id number] : 2000 Exam Date: 11/12/2024 Ordering Doctor: LUNA STEEN [facility] ECHOCARDIOGRAM REPORT PROCEDURE: CA ECHO [...] content not included)...TBHRadiology, Radiologist, - 11/24/2024 [place] [address] Cardiology Report Signed Patient: ALETA CASTRO MR#: [id number] : 2000 Acct:[id number] Age/Sex: 24 / F ADM Date: 11/12/24 Loc: CARD Attending Dr: Luna Steen Ordering Physician: Luna Steen Date of Service: 11/12/24 Procedure(s): CA echo doppler complete Accession Number(s): [id number] cc: Luna Steen; ROSALIE PAYNE Patient Name: ALETA CASTRO MR#: [id number] : 2000 Exam Date: 11/12/2024 Ordering Doctor: LUNA STEEN [facility] ECHOCARDIOGRAM REPORT PROCEDURE: CA ECHO [...] Signed By: 11/24/24 1640 DD/ 1639 TD/TT: Napkin Machine Operator: KYE HealthcareRadiology Study observation (narrative)[facility] HospitalCA ECHO DOPPLER COMPLETEOrdered By: Radiologist Radiology on 86-15-3427XSCW [employer] Work Phone: ecg 12-LEADon 19-45-1050MgpJohn[place] [address] Electrocardiograph Report Signed Patient: ALETA CASTRO MR#: [id number] : 2000 Acct:[id number] Age/Sex: 24 / F ADM Date: 11/12/24 Loc: CARD Attending Dr: Luna Steen Ordering Physician: Luna Steen Date of Service: 11/12/24 Procedure(s): ECG 12 lead Accession Number(s): [id number] cc: [facility] Test Date: 2024-11-12 Pat Name: ALETA CASTRO Department: Room: - Gender: Female Instrument Person: : 2000 Requested By: LUNA STEEN Order Number: [id number] Reading MD: Lesa Singh Measurements Intervals [place] Rate: 79 P: 42 CO: 158 QRS: 81 QRSD: 90 T: 41 QT: 353 QTc: 405 Interpretive Statements SINUS RHYTHM Normal EKG No previous ECG available for comparison Electronically Signed On 11-13-2024 13:34:21 EDT by Lesa Singh Dictated By: Lesa Singh M.D. Signed By: 11/13/24 1334 11/13/24 1334 DD/ 1206 TD/TT: Napkin Machine Operator:MARTINEadiologSelena busby, - 11/13/2024 [place] [address] Electrocardiograph Report Signed Patient: ALETA CASTRO MR#: [id number] : 2000 Acct:[id number] Age/Sex: 24 / F ADM Date: 11/12/24 Loc: CARD Attending Dr: Luna Steen Ordering Physician: Luna Steen Date of Service: 11/12/24 Procedure(s): ECG 12 lead Accession Number(s): [id number] cc: [facility] Test Date: 2024-11-12 Pat Name: ALETA CASTRO Department: Room: - Gender: Female Instrument Person: : 2000 Requested By: LUNA STEEN Order Number: [id number] Reading MD: Lesa Singh Measurements Intervals [place] Rate: 79 P: 42 CO: 158 QRS: 81 QRSD: 90 T: 41 QT: 353 QTc: 405 Interpretive Statements SINUS RHYTHM Normal EKG No previous ECG available for comparison Electronically Signed On 11-13-2024 13:34:21 EDT by Lesa Singh Dictated By: Lesa Singh M.D. Signed By: 11/13/24 1334 11/13/24 1334 DD/ 1206 TD/TT: Napkin Machine Operator: KYE GarayG 12-LEADOrdered By: Radiologist Radiology on 51-22-3327[facility] Work Phone: ECG 12-LEADon 22-34-9305Iezqbgigm Study observation (narrative)NOMS HealthcareALL CBC WITH AUTO DIFFon 12-71-1884DGBSRJVCB ABSOLUTE KNQT6YRRU HealthcareBasophils/100 WBC (Bld)0.2 %0.2 - 2.0 %[facility] Eosinophils/100 WBC (Bld)0.5 %Low0.9 - 7.0 %NOMS HealthcareErythrocyte distribution width (RBC) [Ratio]12.7 %11.0 - 15.0 %NOMS HealthcareHematocrit (Bld) [Volume fraction]31.2 %Low36.0 - 48.0 %[facility] HospitalHemoglobin (Bld) [Mass/Vol]10.8 g/dLLow12.0 - 16.0 g/dLSainte Genevieve County Memorial HospitalIMMATURE GRANULOCYTES ABS AUTO0.01NOMS HealthcareImmature granulocytes/100 WBC (Bld)0.2 %0.0 - 0.5 %[facility] HealthcareInterpretation and review of laboratory resultsAbnormalNOSaint Alexius Hospital LYMPHOCYTES ABSOLUTE QCYG8QqvGKQK HealthcareLymphocytes/100 WBC (Bld)15 %Low20.5 - 60.0 %CoxHealthH (RBC) [Entitic mass]32.3 pg26.7 - 34.0 pgCoxHealthHC (RBC) [Mass/Vol]34.6 g/dL29.9 - 35.2 g/dLCoxHealthV (RBC) [Entitic vol]93.4 fL81.0 - 99.0 fLINTERMOUNTAIN MEDICAL CENTER HealthcareMONOCYTES ABSOLUTE AUTO0.5NOCT HealthcareMonocytes/100 WBC (Bld)7.7 %1.7 - 12.0 %[facility] HospitalNEUTROPHILS ABSOLUTE LLNY9UBJR HealthcareNeutrophils/100 WBC (Bld)76.4 %High43.0 - 75.0 % [facility] HospitalPlatelet mean volume (Bld) [Entitic vol]9.7 fL9.5 - 13.5 fLNOCT HealthcareTBH EO #0NOMS HealthcareTB GUW819BUNX [facility] Hospital LimaTB RBC3.34LowNOMS Scci Hospital LimaTB WBC6.6NOMS HealthcareCLINISYNCNOMS HealthcareIGP,APTIMA HPV,AGE GDLNon 67-88-6041MHU GDLN ACOG TESTINGNote.[facility] HealthcareComment on above:TESTS RESULT FLAG UNITS REF RANGE LAB Clinician Provided Cytology Information Source.............Endocervix No. of containers..01 ThinPrep Vial Age Algo ACOG Yaa... -29 01 FLAG LEGEND: L-Low Normal,H-High Normal,LL-Alert Low,HH-Alert High <-Panic Low,>-Panic High,A-Abnormal,AA-Critical Abnormal Performed at: 01 =G [address] [address] Ludy Hector MD, IGP, RFX APTIMA HPV ASCUNote.NOMS HealthcareComment on above:TESTS RESULT FLAG UNITS REF RANGE LAB DIAGNOSIS: 02 NEGATIVE FOR INTRAEPITHELIAL LESION OR MALIGNANCY. THIS SPECIMEN WAS RESCREENED PART OF OUR UNIVERSITY CONTROLLER PROGRAM. Specimen adequacy: 02 Satisfactory for evaluation. No endocervical component is identified. Performed by: 02 Brionna Mello, Test Clerk ([facility]) QC reviewed by: 02 Polina Simons, Test Clerk . 02 Note: Note 02 The Pap [...] <-Panic Low,>-Panic High,A-Abnormal,AA-Critical Abnormal Performed at: [address] [address] Ludy Hector MD, Performed at: =[facility] [id number] Board Certified Music Therapist: Ludy Hector MD, Phone: [phone] Performed at: [address] [id number] Board Certified Music Therapist: Ludy Hector MD, Phone: [phone] BRUSH-SPATULA ENDOCERVIX CLINISYNCNOMS HealthcareRECURRENT VAGINITIS (HTRX)on 63-52-8710GUEGPDVMW VAGINAE 0NOMS HealthcareATOPOBIUM VAGINAENot detectedNOMS HealthcareBVAB 2,3 (BACTERIAL VAGINOSIS ASSOCIATED BACTERIA 2, 3); MOBILUNCUS JYP5QDVR HealthcareBVAB 2,3 (BACTERIAL VAGINOSIS ASSOCIATED BACTERIA 2, 3); MOBILUNCUS SPPNot detectedNOMS HealthcareCANDIDA ALBICANS, PARAPSILOSIS, ZNALOHQKAQ3DNWM HealthcareCANDIDA ALBICANS, PARAPSILOSIS, TROPICALISNot detectedNOMS HealthcareCANDIDA GLABRATA0 NOMS HealthcareCANDIDA GLABRATANot detectedNOMS HealthcareCANDIDA JSQOPN3BCZR HealthcareCANDIDA KRUSEINot detectedNOMS HealthcareCHLAMYDIA HLCFLVGPBRU0BSTX HealthcareCHLAMYDIA TRACHOMATISNot detectedNOMS HealthcareGARDNERELLA VAGINALIS0 NOMS HealthcareGARDNERELLA VAGINALISNot detectedNOMS HealthcareMEGASPHAERA (TYPES 1, 2)0NOMS HealthcareMEGASPHAERA (TYPES 1, 2)Not detectedNOMS Healthcare MYCOPLASMA MYJTUBNCCM2TMHC HealthcareMYCOPLASMA GENITALIUMNot detectedNOMS HealthcareNEISSERIA DSJGTWPATDW6FGTP HealthcareNEISSERIA GONORRHOEAENot detected NOMS HealthcareTRICHOMONAS VDDYZBDPI9URFE HealthcareTRICHOMONAS VAGINALISNot detectedNOMS HealthcareNOMS HealthcareUrinalysis macro (dipstick) panel (U)on 84-16-2521Woiomoomr, UAPositiveNegative - 4(70) +++ mg/dLNOMS HealthcareBlood, UANegativeNegative - 50 Randall/mcLNOMS HealthcareClarity, UAClearNOMS Healthcare Color, UAYellowNOMS HealthcareGlucose, UAPositiveNegative - 2000(110) ++++ mg/dL NOMS HealthcareInterpretation and review of laboratory resultsAbnormalNOMS HealthcareKetones, UAPositiveNegative - 160(16) ++++ mg/dLNOCT Healthcare Leukocytes, UANegativeNegative - 500+++ Rick/mcLNOMS HealthcareNitrite, UA NegativeNegative - PositiveNOMS HealthcarepH, UA65 - 9NOMS HealthcareProtein, UA PositiveNegative - 2000(20) ++++ mg/dLNOMS HealthcareSpec Grav, UA1.031 - 1.03 NOMS HealthcareUrobilinogen, UA0.20.2 - 12 mg/dLNOMS HealthcareNOMS HealthcareUS OB CERVICAL LENGTHon 85-66-4761[address] [address] Ultrasound Report Signed Patient: ALETA CASTRO MR#: [id number] : 2000 Acct:[id number] Age/Sex: 24 / F ADM Date: 10/06/24 Loc: US Attending Dr: Doc Thomas D.O. Ordering Physician: Doc Thomas D.O. Date of Service: 10/06/24 Procedure(s): US OB cervical length Accession Number(s): [id number] cc: Doc Thomas D.O.; ROSALIE PAYNE [address] [address] Patient Name: ALETA CASTRO MRN: [id number] date: 2000 Sex: F Assigned Patient Location: US Current Patient Location: US Accession/Order Number: [id number] Exam Date: 10/06/2024 14:25 Report Date: 10/06/2024 [...] Jr., D.O. 10/06/2024 2:26 PM Dictation Location: [place] [address] Electronically authenticated by: [id number] Y Date: 10/06/2024 14:26 Dictated By: Jermaine Nguyễn M.D. Signed By: 10/06/24 1428 DD/ 142 TD/TT: Napkin Machine Operator:TBHRadiology, Radiologist, MD - 10/06/2024 [place] [address] Ultrasound Report Signed Patient: ALETA CASTRO MR#: [id number] : 2000 Acct:[id number] Age/Sex: 24 / F ADM Date: 10/06/24 Loc: US Attending Dr: Doc Thomas D.O. Ordering Physician: Doc Thomas D.O. Date of Service: 10/06/24 Procedure(s): US OB cervical length Accession Number(s): [id number] cc: Doc Thomas D.O.; ROSALIE PAYNE [place] [id number] Patient Name: ALETA CASTRO MRN: [id number] date: 2000 Sex: F Assigned Patient Location: US Current Patient Location: US Accession/Order Number: [id number] Exam Date: 10/06/2024 14:25 Report Date: 10/06/2024 [...] Jr., D.O. 10/06/2024 2:26 PM Dictation Location: [place] Electronically authenticated by: [id number] Y Date: 10/06/2024 14:26 Dictated By: Jermaine Nguyễn M.D. Signed By: 10/06/24 1428 DD/ 25 TD/TT: Napkin Machine Operator: KYE SoaresRadiology Study observation (narrative)[facility] OB CERVICAL LENGTHOrdered By: Radiologist Radiology on 54-66-6357WWXW [employer] Work Phone: US OB 14+ WEEKS ANATOMY SCANon 11-45-6605YL OB 14+ WEEKS ANATOMY SCANFINDINGS: A single, [...] Delivery: 02/20/25 Gestational Age as of 09/02/2024: 44y6yHlwtgdxiri macro (dipstick) panel (U)on 93-30-3730Pxeyzqgfj, UANegativeNegative - 4(70) +++ mg/dLNOMS HealthcareBlood, UANegativeNegative [...] mg/dLNOMS HealthcareNOMS Healthcare ALL THYROID STIM HORMONEon 23-47-5799OEY Qn0.836 m[IU]/LNOMS HealthcareCLINISYNC NOMS HealthcareUrinalysis macro (dipstick) panel (U)on 24-29-0598Rpbnneddb, UA NegativeNegative - 4(70) +++ mg/dLNOMS HealthcareBlood, [...] 12 mg/dLNOMS HealthcareNOMS HealthcareALL THYROID STIM HORMONEon 09-37-3623TOC Qn1.413 m[IU]/LNOMS HealthcareCLINISYNCNOMS HealthcareUrinalysis macro (dipstick) panel (U)on 99-59-6119Wempkqrwx, UANegativeNegative - 4(70) +++ mg/dLNOMS HealthcareBlood, UANegativeNegative - 50 Randall/mcLNOMS Healthcare Clarity, UAClearNOMS HealthcareColor, UAYellowNOMS HealthcareGlucose, UANegative Negative - 1999(110) ++++ mg/dLNOCT HealthcareInterpretation and review of laboratory resultsAbnormalNOMS HealthcareKetones, UAPositiveNegative - 160(16) ++++ mg/dLNOMS HealthcareComment on above:40Leukocytes, UATraceNegative - 500+++ Rick/mcLNOMS HealthcareNitrite, UANegativeNegative - PositiveNOMS HealthcarepH, UA6.55 - 9NOMS HealthcareProtein, UANegativeNegative - 2000(20) ++++ mg/dLNOMS HealthcareSpec Grav, UA1.0251 - 1.03NOMS HealthcareUrobilinogen, UA1.00.2 - 12 mg/dLNOMS HealthcareNOMS HealthcareBOX TESTon 70-63-4439IKS TEST SENT OUTUNMARYMOUNT HOSPITALS KuruymlfgqMDS4OFEHMCSVT WxdekfwixbISC02//NOCT HealthcareUNITY CLINISYNCSainte Genevieve County Memorial HospitalTB DRUG SCREEN RAPID (URINE)on 66-27-0349LTSGMBOLPZF SCREEN URINENegativeNEGATIVENOMS HealthcareBARBITURATES SCREEN URINENegative NEGATIVENOMS HealthcareBENZODIAZEPINES [...] URINENegativeNEGATIVENOMS HealthcareCLINISYNCNOMS HealthcareHCG ( test) Ql (U)on 49-78-3928Ylnxuvfcfadphv and review of laboratory resultsAbnormalNOMS HealthcarePreg Test, UrPositiveNegativeNOMS HealthcareNOMS HealthcareUS OB TRANSVAGINALon 16-01-9329YM OB TRANSVAGINALEXAM: US OB TRANSVAGINAL HISTORY: Dating. [...] II, MD, PHD at 19-Jul-2024 08:55:15 PM [facility] TeleradiologyNormalNot AvailableComment on above:Order Comment: US OB TRANSVAGINAL No LMP recorded.Urinalysis macro (dipstick) panel (U)on 87-32-8147Zsztskjst, UA NegativeNegative - 4(70) +++ mg/dLNOMS HealthcareBlood, [...] HealthcareNOMS HealthcareCBC W Auto Differential panel (Bld)on 22-54-7715Zjrd form neutrophils (Bld) [#/Vol]CANCELED NOMS HealthcareComment on [...] %NOMS HealthcareHemoglobin (Bld) [Mass/Vol]12.8 g/dL11.7 - 15.5 g/dLNOCT HealthcareLymphocytes (Bld) [#/Vol]1282 10*3/uLNOMS HealthcareLymphocytes/100 WBC (Bld)26.7 %NOMS HealthcareMCH (RBC) [Entitic mass]30.6 pg27.0 - 33.0 pgNOCT HealthcareMCHC (RBC) [Mass/Vol]32.9 g/dL32.0 - 36.0 g/dLNOMS [...] NOMS HealthcareIron and Iron binding capacity panelon 55-50-8591Xrqi [Mass/Vol] 101 ug/dLNOCT HealthcareIron binding capacity [Mass/Vol]340NOMS HealthcareIron saturation [Mass fraction]30NOMS HealthcareLaboratory - Chemistry and Chemistry - challengeon 53-06-1614Aufejnv [Mass/Vol]4.8 g/dL3.6 - 5.1 g/dLNOCT Healthcare Albumin/Globulin [Mass ratio]1.8 {ratio}NOMS HealthcareALP [Catalytic activity/Vol]65 U/L31 - 125 U/LNOMS HealthcareALT [Catalytic activity/Vol]16 U/L 6 - 29 U/LNOMS HealthcareAST [Catalytic activity/Vol]14 U/L10 - 30 U/LNOMS HealthcareBilirubin [Mass/Vol]0.6 mg/dL0.2 - 1.2 mg/dLNOMS HealthcareCalcium [Mass/Vol]9.3 mg/dL8.6 - 10.2 mg/dLNOMS HealthcareChloride [Moles/Vol]107 mmol/L 98 - 110 mmol/LNOMS HealthcareCO2 [Moles/Vol]24 mmol/L20 - 32 mmol/LNOMS HealthcareCortisol [Mass/Vol]14.3 ug/dLmcg/dLNOCT HealthcareComment on above: Reference Range: For 8 a.m.(7-9 a.m.) Specimen: 4.0-22.0 Reference Range: For 4 p.m.(3-5 p.m.) Specimen: 3.0-17.0 * Please interpret above results accordingly * Creatinine [Mass/Vol]0.71 mg/dL0.50 - 0.96 mg/dLNOCT HealthcareGFR/1.73 sq M.predicted among non-blacks MDRD (S/P/Bld) [Vol rate/Area]122 mL/min/{1.73_m2}> OR = 60 mL/min/1.86l7BMQA HealthcareGlobulin (S) [Mass/Vol]2.6 g/dLNOCT HealthcareGlucose [Mass/Vol]95 mg/dL65 - 99 mg/dL[facility] HealthcareComment on above: Fasting reference interval Potassium [Moles/Vol]4.2 mmol/L3.5 - 5.3 mmol/LNOMS HealthcareProtein [Mass/Vol] 7.4 g/dL6.1 - 8.1 g/dLNOCT HealthcareSodium [Moles/Vol]139 mmol/L135 - 146 mmol/LNOMS HealthcareUrea nitrogen [Mass/Vol]16 mg/dL7 - 25 mg/dLNOSaint Alexius Hospital Urea nitrogen/Creatinine [Mass ratio]SEE NOTE:[facility] HealthcareComment on above: Not Reported: BUN and Creatinine are within reference range. Laboratory - Serology - non-microon 26-35-6668Nijymldhtzfju Ab Qn153 [IU]/mLHigh < or = 1 IU/mLNSEILING REGIONAL MEDICAL [facility] HealthcareTPO Ab Qn27 [IU]/mLHighNINFNOSaint Alexius HospitalNo Panel Informationon 51-83-3927Qrjbubnhltmjpq and review of laboratory resultsAbnormal [facility]erg Organization Information Site ID: QTW Name: [facility] Address: [address] [place] [id number] Director: Urvashi TaborHospital Sisters [facility] Organization Information Site ID: QPT Name: [facility] Address: [address] [place] [address], [address] [place] [address] Director: Yonis PADILLACT HealthcareT3, [facility] 18-37-0213Kdgh T3 [Mass/Vol] 3.6 pg/mLNormal2.3-4.2Quest DiagnosticsComment on above:Performed By: #### 899, 87442, 866 #### [facility] [place] [address] Textile Worker: Yonis Beck MDT4, [facility] 08-73-7543Ciky T4 [Mass/Vol]1.1 ng/dLNormal0.8-1.8Quest DiagnosticsComment on above:Order Comment: FASTING:NO FASTING: NOPerformed By: #### 899, [address]456, 866 #### [facility] [place] [address] Textile Worker: Yonis MARAVILLAVa [facility] 65-61-9553GQU Qn1.98 m[IU]/LNormalQuest DiagnosticsComment on above:Result Comment: Reference Range > or = 20 Years 0.40-4.50 Ranges First trimester 0.26-2.66 Second trimester 0.55-2.73 Third trimester 0.43-2.91Performed By: #### 899, 74471, 866 #### [facility] [place] [address] Textile Worker: Yonis Beck MDHCG ( test) IA.rapid Ql (U)Ordered By: Marcelle Espinosa on 69-34-9031PQY ( test) Ql (U)NegativeUniversity Hospitals Cleveland Medical CenterHCG,Urineon 76-60-3900Kmoh HCG ( test) Ql (U) NegativeNoAtrium Health [facility] Physician GroupComment on above:Result Comment: PERFORMED BY: [facility] [address] [place] [address] PATHOLOGIST GARBAGE DEPOT WORKER RAYMOND SUERO M.D.Performed By: #### UHCG #### [facility] [address] [place] [address] [facility] 56-96-0308UTvosvifp: [id number] Received: 09/03/23 Status: FRANKLYN Gonzales Num: [id number] Spec Type: Surgical Subm Dr: Marcelle Espinosa DO Tissues: A Small Intestine - Biopsy/Polyp (SMALL BOWEL BX) B GASTRIC FOR HP (GASTRIC HP) C Esophagus Biopsy (DISTAL ESOPHAGUS) D Esophagus Biopsy (PROXIMAL ESOPHAGUS) E Colon Biopsy (RANDOM RT COLON) F Colon Biopsy (RANDOM LT COLON) Procedures: HE/12, Gross/Micro L4/6, H PYLORI, IHC First AB Age/ Patient Sex Location Account Attending Physician Aleta Castro [id number] Marcelle Espinosa DO SPEC NUM: [id number] RECD: 09/03/23 STATUS: FRANKLYN GONZALES NUM: [id number] MIRIAM: 09/02/23- SUBM DR: Marcelle Espinosa DO ENTERED: 09/03/[address] [facility] [address]: SPEC TYPE: Surgical DEPT: S [...] mild squamous acanthosis and occasionally associated Specimen: [id number] Received: 09/03/23 Status: FRANKLYN Gonzales Num: [id number] Spec Type: Surgical Subm Dr: Marcelle Espinosa DO Tissues: A Small Intestine - Biopsy/Polyp (SMALL BOWEL BX) B GASTRIC FOR HP (GASTRIC HP) C Esophagus Biopsy (DISTAL ESOPHAGUS) D Esophagus Biopsy (PROXIMAL ESOPHAGUS) E Colon Biopsy (RANDOM RT COLON) F Colon Biopsy (RANDOM LT COLON) Procedures: /, Gross/Micro L4/6, H PYLORI, IHC First AB Patient: Aleta Castro N [id number] (Continued) Specimen: [id number] Received: 09/03/23 (Continued) Pathological Diagnosis (Continued) Signed (signature on file) Heather Villegas MD 09/05/23 1417 Specimen: [id number] Received: 09/03/23 Status: FRANKLYN Gonzales Num: [id number] Spec Type: Surgical Subm Dr: Marcelle Espinosa DO Tissues: A Small Intestine - Biopsy/Polyp (SMALL BOWEL BX) B GASTRIC FOR HP (GASTRIC HP) C Esophagus Biopsy (DISTAL ESOPHAGUS) D Esophagus Biopsy (PROXIMAL ESOPHAGUS) E Colon Biopsy (RANDOM RT COLON) F Colon Biopsy (RANDOM LT COLON) Procedures: /12, Gross/Micro L4/6, H PYLORI, IHC First AB Patient: Aleta Castro [id number] (Continued) Specimen: [id number] Received: 09/03/23 (Continued) Pathological Diagnosis (Continued) lymphocytic [...] entirely submitted (more content not included)...[facility] Physician GroupInsurance Correspondence Officeon 38-05-1386Mgolqqucq Correspondence [id number]#1.00TIFFNormal Marion HospitalIntraOperative Documentson 54-58-7473LdorlXvdmlqrpz [id number]#1.00TIFLutheran HospitalPostoperative Documentson 88-44-6119Hwgmgqqwsqgqx Documents [id number]#1.00TIFLutheran HospitalMain OR Intraoperative Recordon 73-04-1219Hovc OR Intraoperative Record IntraOp Document Type FT Summary Primary Physician: Myron Marroquin DO Finalized Date/Time: 04/25/23 09:04:33 Pt. Name: ALETA CASTRO/Sex: 2000 Female Med Rec #: [id number] Physician: Myron Marroquin DO Financial #: [id number] Pt. Type: A Room/Bed: [place] [address] Admit/Disch: 04/23/23 06:25:15 - 04/23/23 14:50:00 Institution: [...] assist with the block. Patient's heartrate 89, so82-449% on room air. patient tolerated block well. 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 Last Modified By: Souleymane RN, Lyle Comer RN, Lyle Comer RN, Lyle Haas 04/23/23 10:59:32 04/23/23 10:59:32 04/23/23 10:59:32 Entry 4 Entry 5 Entry 6 Case Attendee Regulo Rodgers, Garry Noel CST Role Performed Staff - Other Scrub - Primary BENCH SCIENTIST/SA Time In 04/23/23 08:50:00 04/23/23 08:50:00 04/23/23 08:50:00 Time Out 04/23/23 10:59:00 04/23/23 10:59:00 04/23/23 10:59:00 Procedure KNEE ARTHROSCOPY W/ ACL KNEE ARTHROSCOPY W/ ACL KNEE ARTHROSCOPY W/ ACL REPAIR(Left) REPAIR(Left) REPAIR(Left) Comments 2ND SCRUB AT THE SURGICAL FIELD Last Modified By: Souleymane MCQUEEN, Lyle Comer RN, Lyle Comer RN, Lyle Haas 04/23/23 10:59:32 02/06/24 10:59:32 04/23/23 10:59:32 General Comments: Fatou Ponce, [...] FT Pre-Care Text: Implements (more content not included)...[facility] Consent for Anesthesiaon 56-26-3065Lgtfpoq for Anesthesia [id number]#1.00TIFLutheran HospitalDischarge Instructionson 84-90-3078Zlrinvumc Instructions [id number]#1.00TIFLutheran HospitalIntraOperative Documentson 39-85-3129QpnlbIgkkaxjkm Documents [id number]#1.00[facility]ittman Medical CenterOperative Reporton 79-42-4374Ncpcytqlv ReportSURGERY DATE: 04/23/2023 [employer] OPERATOR: Garry Camacho CST PREOPERATIVE DIAGNOSIS: Left knee anterior cruciate ligament tear POSTOPERATIVE DIAGNOSIS: Left knee anterior cruciate ligament tear OPERATION: Left knee diagnostic operative arthroscopy with autograft bdwr-carcfh-kdcq anterior cruciate ligament reconstruction with InternalBrace augmentation ANESTHESIA: General as well as regional block ANESTHESIOLOGIST: KARTHIKEYAN Peacock ESTIMATED BLOOD LOSS: 10 mL INTRAVENOUS FLUIDS: Please see the operative record SPECIMEN: None COMPLICATIONS: None IMPLANTS: Arthrex qkrg-dpxmyn-gdep Tightrope system with the button for the [...] The anterior cruciate ligament was reconstructed using ypqj-tklqkv-lvud from patellar tendon autograft with this InternalBrace [...] over reaming with a 10 mm barrel turner. Excess bone debris is again removed. The [...] tensioned on the femo (more content not included)...[facility] HospitalComment on above:Result Comment: Electronically Signed By: Myron Marroquin DO\.br\Date and Time Signed: 04/24/23 07:15 ESTPreoperative Documentson 57-02-4959Mxkpaxrkzolb Documents [id number]#1.00TIFFKeenan Private HospitalConsent for Procedure/Surgeryon 57-98-0428Mjjtgcy for Procedure/Surgery [id number]#1.00TIFFNoMercy Health St. Elizabeth Boardman HospitalConsent for Treatmenton 91-58-6232Nhfkhsn for Treatment [id number]#1.00[facility] Medical CenterDischarge Instructionson 82-98-3758Yonqdtsqu Instructions ALETA CASTRO :2000 Visit Date:04/23/2023 Inpatient [...] been scheduled. Call for any problems. Where: [address] [place] [address]- [facility] (1) Medications What How Much When Instructions Next Dose New acetaminophen-oxycodone (Percocet 5 mg-325 mg oral tablet) 1 Tablets By Mouth As Directed 1-2 po Q4-6h prn pain Dx: S83.512D Duration: 7 days Pickup at [facility]/pharmacy #2345 New aspirin (Ecotrin 325 mg Tab-EC) 1 Tablets By Mouth Every day Pickup at [facility]/pharmacy #2345 Pharmacy Information [facility]/pharmacy #[id number]: [address], [place] [phone] Allergies Banana (Throat tightness, Hives, Vomiting) Latex (Hives, Swelling) azithromycin (Hives) midodrine (Numbness) Education Materials [place], [place] [facility] DISCHARGE INSTRUCTIONS: ANTERIOR CRUCIATE [...] any concerns. Myron Marroquin, DO [facility] [address] [place] [address] Reviewed: 06-23 Revised: 03/29 Common Emergency Awareness [...] share your experie (more content not included)...Lorena Marion HospitalComment on above:Result Comment: Electronically Signed By: Marcelo MCQUEEN, Shyla Acevedo\.br\Date and Time Signed: 04/23/23 10:58 ESTH&P Updateon 04-23-2023H&P [id number]#1.00TIFF [facility] HospitalMain OR PACU I Recordon 56-76-3325Ieyy OR PACU I RecordPACU Phase I Document Type FT Summary Primary Physician: Myron Marroquin DO Finalized Date/Time: 04/23/23 12:22:33 Pt. Name: ALETA CASTRO/Sex: 2000 Female Med Rec #: [id number] Physician: Myron Marroquin DO Financial #: [id number] Pt. Type: A Room/Bed: [place] [address] Admit/Disch: 04/23/23 06:25:15 - Institution: Case Times [...] Signatures Signed By: Valencia Jimenez RN 04/23/23 12:22[facility] HospitalMain OR Preoperative Recordon 45-04-3088Csqk OR Preoperative RecordPreOp Document Type FT Summary Primary Physician: Myron Marroquin DO Finalized Date/Time: 04/23/23 08:50:41 Pt. Name: ALETA CASTRO/Sex: 2000 Female Med Rec #: [id number] Physician: Myron Marroquin DO Financial #: [id number] Pt. Type: A Room/Bed: [facility]/ Admit/Disch: 04/23/23 06:25:15 - Institution: [...] Signatures Signed By: Lyle Comer RN 04/23/23 08:50NormalMarion HospitalMonitor Record on 41-61-3300Jmttrwh [id number]#1.00TIFF [facility] HospitalOperative Reporton 68-44-7413Efperpfau Report Patient: ALETA CASTRO Age: 22 years [...] Using maximal sterile barrier technique per current [facility] guidelines including hand hygeine, Guidance (Ultrasound used [...] None, The patient tolerated the procedure as expected.[facility] Va Medical CenterComment on above:Result Comment: Electronically Signed By: Urbano Anesthesiology ()Cyrus.br\Date and Time Signed: 04/23/23 07:56 ESTPatient Education - Texton 94-03-3171Xyevvps Education - Text [place], [place] [facility] DISCHARGE INSTRUCTIONS: ANTERIOR CRUCIATE [...] any concerns. Myron Marroquin DO [facility] [address] [place] [address] Reviewed: 06-23 Revised: 03/29[facility] HospitalProgress Note-Physicianon 89-71-7140Drnubqan Note-PhysicianPatient: ALETA CASTRO Age: 22 years Sex: [...] Daily, # 21 tab(s), Refills(s) 0, Pharmacy: [facility]/pharmacy #2345, 165, cm, 04/04/23 6:11:00 EST, [...] All Problems H/O: hypothyroidism / SNOMED CT 489881440 / Confirmed POTS (postural orthostatic tachycardia syndrome) / SNOMED CT 2347341378 / Confirmed Physical Examination Vital Signs 04/23/2023 [...] Blood Pressure 1 (more content not included)... [facility] HospitalComment on above:Result Comment: Electronically Signed By: Cyrus Modi DO\.br\Date and Time Signed: 04/23/23 11:06 ESTProgress Note-PhysicianPatient: ALETA CASTRO Age: 22 years Sex: Female : 2000 Associated Diagnoses: None Author: Myron Marroquin DO Postoperative Information Procedure: L knee scope, ACL recon Preoperative Diagnosis: L ACL tear. Postoperative Diagnosis: same. Performed by: daniel. [employer] Worker: Roby Camacho. Specimens Removed: none. Prosthesis: Arthrex. . Estimated Blood Loss: 10 ml. Complications: None. Anesthesia type: General, block.[facility] HospitalComment on above:Result Comment: Electronically Signed By: [...] Daily, # 21 tab(s), Refills(s) 0, Pharmacy: [facility]/pharmacy #2345, 165, cm, 04/04/23 6:11:00 EST, Height/Length Dosing, 78, kg, 04/04/23 6:11:00 EST, Weight Dosing Percocet 5 mg-325 mg oral tablet: 1 tab(s), Oral, As Directed, 40 tab(s), Refill(s) 0, 1-2 po Q4-6hprn pain Dx: S83.512D Duration: 7 days, [facility]/pharmacy #2345, 165, cm, 04/04/23 6:11:00 EST, [...] All Problems H/O: hypothyroidism / SNOMED CT 424816590 / Confirmed POTS (postural orthostatic tachycardia syndrome) / SNOMED CT 5736026667 / Confirmed, Active Problems (2) H/O: hypothyroidism POTS (postural orthostatic tachycardia syndrome) Histories Past Medical History: No active or resolved past medical history items have been selected or recorded. Family History: No family history items have been selected or recorded. Procedure history: Laparoscopic left ovarian R/o (8195608612). Ovarian cyst removal (520328513). Social History Social & Psychosocial Habits Alcohol [...] U beta hCG Ql Negative . Plan [place] [employer] Anesthesiologists (ASA) physical status classification: Class II. Anesthetic Preoperative Plan: Anesthesia General. Regional Adductor Canal Block Left.[facility] HospitalComment on above:Result Comment: Electronically Signed By: Urbano Lan ()Cyrus\Date and Time Signed: 04/23/23 07:41 ESTU BetaHcg Qualon 39-18-4846JRY.beta subunit (U) [Moles/Vol]NegativeNormAdena Regional Medical CenterComment on above:Performed By: #### [id number] ####[facility] [address] [place], [place] [address]Orhovou for Procedure/Surgery on 71-21-8697Ypqbzyv for Procedure/Surgery [id number]#1.00TIFFNoMercy Health St. Elizabeth Boardman HospitalCBC w/ Auto Diffon 84-40-1212Yqmtqslq Absolute0.0 E9/LNormal0.0-0.2FSuburban Community Hospital & Brentwood HospitalComment on above:Performed By: #### [id number] ####[address] [address]Hvcixetfb/100 WBC (Bld)0.4 %Normal0.0-2.0Mar[facility] HospitalComment on above:Performed By: #### [id number] ####[address] [address]Hit Absolute0.1 E9/LNormal0.0-0.5FSuburban Community Hospital & Brentwood HospitalComment on above:Performed By: #### [id number] ####[address] [address]Spcacrvkkzt/100 WBC (Bld)1.0 %Normal0.0-8.0Marion HospitalComment on above:Performed By: #### [id number] ####[address] [address]Rctvbxvxqwo distribution width (RBC) [Ratio]12.6 %Fauptj90.9-14.2FSuburban Community Hospital & Brentwood Hospital Comment on above:Performed By: #### [id number] ####[address] [address]Zqabxqsbwo (Bld) [Volume fraction] 39.0 %Fsinxk33.0-46.0Marion HospitalComment on above:Performed By: #### [id number] ####[address] [address]Ytsktmhief (Bld) [Mass/Vol]13.1 g/gHAjrpph18.0-16.0Marion HospitalComment on above:Performed By: #### [id number] ####[address] [address]Rzfyn Absolute1.4 E9/LNormal 1.0-4.0Marion HospitalComment on above:Performed By: #### [id number] ####[address] [address] Lymphocytes/100 WBC (Bld)22.2 %Surdre12.0-50.0Marion HospitalComment on above:Performed By: #### [id number] ####[address] [address]HQF (RBC) [Entitic mass]30.6 pgNormal 27.0-34.0Marion HospitalComment on above:Performed By: #### [id number] ####[address] [address]URAO (RBC) [Mass/Vol]33.7 g/bERtyiku13.4-36.0Marion HospitalComment on above:Performed By: #### [id number] ####[address] [address]LXF (RBC) [Entitic vol]91.0 bDDujkmv61.0-100.0 Marion HospitalComment on above:Performed By: #### [id number] ####[address] [address]Wqob Absolute0.4 E9/LNormal0.2-1.0Marion HospitalComment on above: Performed By: #### [id number] ####[place] [address] [address]Vozsstitt/100 WBC (Bld)5.6 %Normal4.0-14.0Marion HospitalComment on above:Performed By: #### [id number] ####[place] [address] [address]Uaghcn Absolute4.6 E9/LNormal2.0-7.5FSuburban Community Hospital & Brentwood HospitalComment on above:Performed By: #### [id number] ####[place] [address] [address]Iqjmao Auto70.8 %Evwpbv13.0-75.0Marion HospitalComment on above:Performed By: #### 5358544 ####[place] [address] [address]Kdthlzsg830.0 E9/HSxhnhg366.0-500.0Marion HospitalComment on above:Performed By: #### [id number] ####[place] [address] [address]Dibgjopc mean volume (Bld) [Entitic vol]7.7 fLNormal6.4-10.8Marion HospitalComment on above:Performed By: #### [id number] ####[place] [address] [address]EFN3.3 E12/LNormal4.3-5.9Marion HospitalComment on above:Performed By: #### [id number] ####[address] [address]OVR3.5 E9/LNormal4.0-11.0 Marion HospitalComment on above:Performed By: #### [id number] ####[place] [address] [address] Consent for Treatmenton 10-82-4931Osxdqsd for Treatment [id number]#1.00SAM[facility] NORTH HEALTH CENTERFKeenan Private HospitalHEMATOLOGYOrdered By: SYSTEM SYSTEM on 07-15-7616Htbhaqpx Absolute0.0 E9/L Normal0.0 - 0.2 E9/LRemisol HemeBasophils/100 WBC (Bld)0.4 %Normal0.0 - 2.0 % Remisol HemeEos Absolute0.1 E9/LNormal0.0 - 0.5 E9/LRemisol HemeEosinophils/100 WBC (Bld)1.0 %Normal0.0 - 8.0 %Remisol HemeErythrocyte distribution width (RBC) [Ratio]12.6 %Vexjbk05.9 - 14.2 %Remisol HemeHematocrit (Bld) [Volume fraction] 39.0 %Woiyhf41.0 - 46.0 %Remisol HemeHemoglobin (Bld) [Mass/Vol]13.1 g/dLNormal 12.0 - 16.0 gm/dLRemisol HemeLymph Absolute1.4 E9/LNormal1.0 - 4.0 E9/LRemisol HemeLymphocytes/100 WBC (Bld)22.2 %Iacehj52.0 - 50.0 %Remisol HemeMCH (RBC) [Entitic mass]30.6 biQmucrb34.0 - 34.0 pgRemisol HemeMCHC (RBC) [Mass/Vol]33.7 g/aYAkbcpa39.4 - 36.0 gm/dLRemisol HemeMCV (RBC) [Entitic vol]91.0 yWZdiosd90.0 - 100.0 fLRemisol HemeMono Absolute0.4 E9/LNormal0.2 - 1.0 E9/LRemisol Heme Monocytes/100 WBC (Bld)5.6 %Normal4.0 - 14.0 %Remisol HemeNeutro Absolute4.6 E9/LNormal2.0 - 7.5 E9/LRemisol HemeNeutro Auto70.8 %Vivexk38.0 - 75.0 %Remisol NohrTbjgovms652.0 E9/XZhfnwl550.0 - 500.0 E9/LRemisol HemePlatelet mean volume (Bld) [Entitic vol]7.7 fLNormal6.4 - 10.8 fLRemisol HemeRBC4.3 E12/LNormal4.3 - 5.9 E12/LRemisol HemeWBC6.5 E9/LNormal4.0 - 11.0 E9/LRemisol HemeCOVID/FLU/RSV RT-PCRon 40-21-5694YZWT-CoV-2 (COVID-19) RNA QUEENIE+probe Ql (Unsp spec)Negative [facility] [employer] Other COVID/FLU/RSV RT-PCRNegativeHuntington Woods [employer] Other Quick Strepon 04-01-2023S. pyogenes Org specific cx Ql (Throat)NegativeHuntington Woods [employer] Other Quick StrepNoValmarc [employer] Other US Gallbladderon 90-00-5901CW GallbladderClinical History: Right upper quadrant pain. Diarrhea. [...] and signed by Cornelius Hernandez on 07/23/2022 1043NoalSharp [facility] Medical SpecialistPA ACOG PANEL 2: to 05-09-2022..NormalThe [facility] Cleveland EastComment on above:Performed By: #### [id number] #### [facility] [address] [place] [address] Dr. Yovanny Kelly Gdln ACOG Wmhvkjm66-04LcfmacGzcSelect Medical Specialty Hospital - Cincinnati NorthComment on above:Performed By: #### [id number] #### [facility] [address] [place] [address] Dr. Yovanny VillegasDIAGNOSIS:CommentHocking Valley Community Hospital on above: Result Comment: NEGATIVE FOR INTRAEPITHELIAL LESION OR MALIGNANCY.Performed By: #### [id number] #### [facility] [address] [place] [address] Dr. Yovanny VillegasMethodology:CommentHocking Valley Community Hospital on above: Result Comment: This liquid based ThinPrep(R) pap test was screened with the use of an image guided system.Performed By: #### [id number] #### [place] [address] Dr. Yovanny VillegasNote:CommentHocking Valley Community Hospital on above:Result Comment: The Pap smear is a screening test designed to aid in the detection of premalignant and malignant conditions of the uterine cervix. It is not a diagnostic procedure and should not be used as the sole means of detecting cervical cancer. Both false-positive and false-negative reports do occur. .Performed By: #### [id number] #### [place] [address] Dr. Yovanny VillegasPerformed by:CommentHocking Valley Community Hospital on above: Result Comment: Deedee Navarrete Dress Cap Maker (ASCP)Performed By: #### [id number] #### [place] [address] Dr. Yovanny VillegasReflex Criteria:CommentHocking Valley Community Hospital on above:Result Comment: The HPV DNA reflex criteria were not met with this specimen result therefore, no HPV testing was performed. .Performed By: #### [id number] #### [place] [address] Dr[address] Yovanny VillegasSpecimen adequacy:[facility] on above:Result Comment: Satisfactory for evaluation. Endocervical and/or squamous metaplastic cells (endocervical component) are present.Performed By: #### [id number] #### [facility] [address] [place] [address] Dr. Yovanny VillegasCHLAMYDIA/GONOCOCCUS QUEENIE (SWAB/URINE/PAPon 99-38-3815Fzbzyruxl trachomatis, NAANegativeNormalNegativeSumma Health Barberton CampusComment on above: Performed By: #### CT/NGNA #### [facility] [address] [place] [address] [address] Yovanny VillegasNeisseria gonorrhoeae, NAANegativeNormalNegativeSumma Health Barberton CampusComment on above:Performed By: #### CT/NGNA #### [facility] [address] [place] [address] [address] Yovanny VillegasVAGINITIS/VAGINOSIS DNA PROBEon 79-34-8316Hgyyzyx speciesNegative NormalNegativeThe [facility] EastComment on above:Performed By: #### VAGINT #### [facility] [address] [place] [address] Dr. Yovanny Piresdnerella vaginalisNegativeNormalNegativeSumma Health Barberton Campus Comment on above:Performed By: #### VAGINT #### [facility] [address] [place] [address] [address] Yovanny VillegasTrichomonas vaginalisNegativermalNegativeSumma Health Barberton Campus Comment on above:Performed By: #### VAGINT #### [facility] [address] [place] [address] [address] Yovanny VillegasXR KNEE LEFT (3 VIEWS)on 60-56-6803HA KNEE LEFT (3 VIEWS) EXAMINATION: THREE XRAY [...] by: Deshaun Aguilar MD 05/24/21 Final resultNormalMercy Johnson Memorial Hospital fracture or dislocation. [facility] RIS CONSOLIDATEDEXAMINATION: THREE XRAY VIEWS OF THE [...] abnormality seen. IMPRESSION: No fracture or dislocation. [employer] Phone: radiology Study observation (narrative)[employer] Phone: XR KNEE LEFT (3 VIEWS)Ordered By: Deshaun Aguilar on 61-39-5327XwfkjNanoL[employer]ens Phone: COVID Quick Testingon 62-83-5146FbcdvxRhiuruxkUrosl [employer] Other Quick Strepon 05-01-2021. pyogenes Org specific cx Ql (Throat)PositiveHuntington Woods [employer] Other Quvpw StrepHuntington Woods [employer] Other COVID Quick Testingon 92-68-8438DwbxfjXdudcveaGemfw [employer] Other Quick Fluon 79-68-1434PNSAF Ab CF (S) [Titer]Negative [facility] [employer] Other FLUBV Ab CF (S) [Titer]NegativeHuntington Woods [employer] Other XR SACRUM COCCYX (MIN 2 VIEWS)on 16-65-0726RK SACRUM COCCYX (MIN 2 VIEWS)EXAMINATION: THREE XRAY VIEWS OF THE SACRUM/COCCYX 12/14/2020 3:10 am COMPARISON: None. HISTORY: ORDERING SYSTEM PROVIDED HISTORY: fall at work - hit nafyb3gb TECHNOLOGIST PROVIDED HISTORY: fall at work - hit vuusm2yb FINDINGS: The sacroiliac joints are normally aligned. The visualized portions the pelvis are. There is no fracture of the sacrum or coccyx evident. IMPRESSION: No acute osseous abnormality of the sacrum or coccyx evident. Interpreted by: Loc Oswald MD Signed by: Loc Oswald MD 12/14/20 Final resultNoThe Bellevue HospitalXR SACRUM COCCYX (MIN 2 VIEWS)Ordered By: David Dominguez on 03-67-2559En acute osseous abnormality of the sacrum or coccyx evident.[employer] Phone: eXAMINATION: THREE XRAY VIEWS OF THE SACRUM/COCCYX 12/14/2020 3:10 am COMPARISON: None. HISTORY: ORDERING SYSTEM PROVIDED HISTORY: fall at work - hit lmjlf9kk TECHNOLOGIST PROVIDED HISTORY: fall at work - hit tjyvw5sc FINDINGS: The sacroiliac joints are normally aligned. The visualized portions the pelvis are. There is no fracture of the sacrum or coccyx evident. [employer] Phone: evinay, [facility] Incoming Radiant Results From [facility] - 12/14/2020 3:24 AM EDT EXAMINATION: THREE XRAY VIEWS OF THE SACRUM/COCCYX 12/14/2020 3:10 am COMPARISON: None. HISTORY: ORDERING SYSTEM PROVIDED HISTORY: fall at work - hit cnhrv5xb TECHNOLOGIST PROVIDED HISTORY: fall at work - hit yqmvb5ec FINDINGS: The sacroiliac joints are normally aligned. The visualized portions the pelvis are. There is no fracture of the sacrum or coccyx evident. IMPRESSION: No acute osseous abnormality of the sacrum or coccyx evident. [employer] Phone: [facility] HospitalTelovations Phone: ct HEAD WO CONTRASTon 30-58-1254JL HEAD WO CONTRAST EXAMINATION: CT OF THE [...] Signed by: Maira Cruz MD 09/19/20 Final resultNormalCherrington Hospital Head WO ContrastOrdered By: Luis Carlos Fragoso on 32-23-8816Ackhclvqrlan noncontrast CT examination of the brain.[employer] Phone: eXAMINATION: CT OF THE HEAD WITHOUT [...] abnormality of the visualized skull or soft tissues.[employer] Phone: evinay, [facility] Incoming Radiant Results From [facility] - 09/19/2020 4:42 PM EDT EXAMINATION: CT [...] Unremarkable noncontrast CT examination of the brain. [employer] Work Phone: [facility] [employer] Work Phone: coding Summaryon 20-61-6739Swbzzl SummaryCODING DATE: 10/27/2019 [facility] STATUS: Home PAYOR: [facility] ADMIT DX: REASON FOR VISIT DX: J02.9 [...] By: Ashley Pablo Date Saved: 10/27/2019 03:10 [facility]2019 Novel Coronavirus (CoVID-19), QUEENIE on 40-03-3909SXQI-CoV-2, QUEENIE (COVID-19) LCNot DetectedNot [facility]sburg HospitalComment on above:Order Comment: [id number] Comment: This test was developed and its performance characteristics determined by [employer]. This test has not been FDA cleared [...] detected) result in this assay. Performed At: [facility] [address] [facility] [place] [id number] Ruab Washburn MD Ph:[phone] By: #### [id number] #### [facility] (DEFAULT) [address], [place] [address]Pwrulzs Formson 51-28-2643Coswbkg Forms [id number]#1.00GTHocking Valley Community HospitalCNCO on 13-42-5806KPEYOxnzbs TextToll Free: [phone] [facility] - Ximylccp[address] [place] [address]Iichg: [phone]: [facility] Hospitale[address] [place], [place] [address]Dbage: [phone]: [facility] Hospitalk[address] [place], [place] [address]Quuvq: [phone]: Steve Pablo M.D., Ronaldo Marquez M.D.David Becerril M.D.Papito Sood D.O..Myriam Chaudhari M.D.Deandre Montoya M.D. Matthew Huff M.D.Date: July 15, 2017Re: Aleta Elliott WHOM IT MAY CONCERN:She was seen in our office today.Sincerely,Katelin Cardona PSR(signed electronically to expedite mailing)UK HealthcareCNOVSPon 88-51-8612WQLAXHNbcat (SP) Office ([place]MAC[place]) --------ALETA GARAY ([id number]) 99 FDate Time Provider Department07/15/17 3:15 PM MIAN BECERRIL [facility] During your visit today, we recorded the [...] nourishedNeuro: Gait normal.Collected: 05/15/17 104 3Resulting lab: [facility] MAIN LABORATORYValue: (NOTE)Comment: Performing Pathologist: [...] list. no changes .Referring Provider: DAVID BECERRIL [[id number]]Allergies As of Date: 07/15/2017(No Known Allergies)Date Reviewed: [...] .Encounter Status:Closed by DAVID BECERRIL MD on 07/17/17[facility] 07-21-9597HLCPCLJWKRJ ID: [id number]: David Escaleraervice: (none)Author Type: PhysicianType: Progress NotesFiled: [...] well nourishedNeuro: Gait normal.Collected: 05/15/17 1043Resulting lab: [facility] MAIN LABORATORYValue: (NOTE)Comment: Performing Pathologist: [...] developany issues certainly could consider further testingAlfred P Becerril, MDNormalCProMedica Flower HospitalPlatelet Func Scrnon 88-28-3723YSX/ADP Qdgbwnote36 CT (sec) Normal<118[facility] on above:Result Comment: Results are reported as Closure Time (CT) in seconds.Performed By: #### PLTSCP ####[place] [address] [address] AveCHow[address] [place], [place] [phone]/EPI Kcghrezxt781 CT (sec)Normal<199CleClermont County Hospital on above:Result Comment: Results are reported as Closure Time (CT) in seconds. Performed By: #### PLTSCP ####[place] [address] [address] AveCHow[address], [place] [phone] Func Scr Interp(NOTE)NormalCleClermont County Hospital on above:Result Comment: Performing Pathologist: Jo-Ann [...] a bleeding disorder. Performed By: #### PLTSCP ####[address] [phone] CBCDIF (for [facility] use only)on 07-75-5571Tyq Baso<0.03Normal<0.11CJoint Township District Memorial Hospital on above: Performed By: #### RCBCDF ####[address]Conshohocken, [place] [phone] Mono0.53 k/uLNormal<0.87[facility] on above:Performed By: #### RCBCDF ####[place] [address] [address] AvConshoh[address], [place] [phone] Neut2.59 k/uL Normal1.45-7.50[facility] on above:Performed By: #### EVANDF ####[address] [phone]/100 WBC Auto (Bld)0.4 %NormalFisher-Titus Medical CenterComment on above:Performed By: #### EVANDF ####[address] [id number] DiffNormal [facility] Centerment on above:Performed By: #### EVANDF ####[address] [phone] 10*3/uLNormal<0.46[facility] Centerment on above:Performed By: #### RACHEL ####[address] [phone]/100 leukocytes1.5 %Normal [facility] on above:Performed By: #### EVANDF ####[address] [phone] 44-5755Erythrocyte distribution width Auto Ratio (RBC)12.2 %Vftykd29.5-15.[address] [facility] on above:Performed By: #### EVANDF ####[address] [phone] 44-5755Erythrocytes (RBC)4.15 10*6/uLNormal3.90-5.20[facility] Comment on above:Performed By: #### EVANDF ####[address] [phone] (RBC)0.0 /100 WBCNormal 0[facility] on above:Performed By: #### EVANDF ####[address], [place] [phone] 44-5955Erythrocytes (RBC)10*6/uLNormal<0.01[facility] on above:Performed By: #### RCBCDF ####[address] Av[place]am[place] [phone] (HCT)39.4 %Jspnzr44.0-46.[address] [facility] on above:Performed By: #### RCBCDF ####[address] AvTamara Ville [phone] mass conc (Bld)12.8 g/ySBitjlz03.5-15.5[facility] on above:Performed By: #### RCBCDF ####[place] [phone] 10*3/uLNormal1.00-4.00[facility]ment on above:Performed By: #### RCBCDF ####[place] [address] [address] Av[place] [phone]/100 aycxkirtqo66.9 %Normal[facility] on above:Performed By: #### RCBCDF ####[address] Av[place] [phone] pGNormal 26.0-34.0[facility] on above:Performed By: #### RCBCDF ####[place] [address] [address] [place] [phone] [phone] mass conc (RBC)32.5 g/sTOqcwhm76.5-36.0[facility] on above:Performed By: #### RCBCDF ####[place] [address] [address] [place] [phone] hQRkwobi59.0-100.0[facility] CenterComment on above:Performed By: #### RCBCDF ####[place] [address] [place], [place] [phone]/100 mubavxkngd62.6 %NormalFisher-Titus Medical CenterComment on above:Performed By: #### RCBCDF ####[address] [place], [place] [phone]/100 WBC Auto (Bld)56.6 %Normal[facility] on above:Performed By: #### RCBCDF ####[address] [phone] mean volume (PMV)10.2 fLNormal9.0-12.7C[facility] on above:Performed By: #### RCBCDF ####[address] [phone] 10*3/mYZaweqw595-662GpptjqlagFisher-Titus Medical Center Comment on above:Performed By: #### RCBCDF ####[place] [address] [place], [place] [phone] (Leukocytes)4.58 10*3/uLNormal 3.70-11.00[facility] Centerment on above:Performed By: #### RCBCDF ####[facility] [place], [place] [phone] 44-5755CNCOon 37-54-6554CLWLPmvbbv TextToll Free: [phone] [facility] - Jidfmyp[address] [place], [place] [address]Lkexz: [phone]: [facility] - Wsrny[address] [place], [place] [address]Itkgk: [phone]: [facility] [place], [place] [address]Bctys: [phone]: Steve Pablo M.D., Ronaldo Marquez M.D.David Becerril M.D.Papito Sood D.O..Carin Hoover M.D. FACROSaju A. Rajan, M.D.Date: April 29, 2017Re: Aleta GarayTO WHOM IT MAY CONCERN:She was seen in our office today.Sincerely,Karly Pizarro Psr(signed electronically to expedite mailing)UK HealthcareCNOVSPon [phone] (SP) Office ([place]MAC[place]) --------ALETA GARAY ([id number]) 89 FDate Time Provider Department04/29/17 2:30 PM [...] patientand her mother at length. Would check VFI838 at this time, further testingbased on results.1. [...] (HCC) [D69.1]Order(s):PLATELET FUNCTION SCREEN [SQPLTSCP] Order #: [id number] FUTURE CBC + DIFF (FOR REMOTE [facility] USE) [SQRCBCDF] Order #: [id number] FUTUREDisposition: Return in about 6 weeks (around [...] Status:Closed by DAVID BECERRIL MD on 04/29/17Normal [facility] CenterPROGRESSon 26-14-4654YKEMPJHPETK ID: [id number]: David Escaleraervice: (none)Author Type: PhysicianType: Progress NotesFiled: [...] deformity, or tenderness.Peripheral pulses: NormalNeuro: Gait normal.ASSESSMENT/PLAN: Aelta Garay is a 16 year old female with abnormal testas noted above. No history of bleeding issues. Reviewed findings with thepatient and her mother at length. Would check SFN095 at this time, furthertesting based on results.1. 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, choice of management likely to be influenced by history ofPOTSAlfred Sandeep Becerril MDNochey [facility] Vital Signs Date TimeVital SignValuePerforming MqstagqdeEqtbtzec99-24-2741 14:02-0500Body mass index (BMI) [Ratio]30 kg/m2Pretty ARELLANO Work Phone: [facility] HospitalCkdnymxaxq26-42-2745 14:02-0500Body tjytln89.29 kgPretty ARELLANO Work Phone: [facility] HospitalBwkgxjqeuf60-68-3269 14:02-0500Diastolic blood tekisydu85 mm[Hg]Pretty ARELLANO Work Phone: [facility] HospitalVtmfwwwbnf06-54-0899 14:02-0500Systolic blood smlrwlif77 mm[Hg]Pretty ARELLANO Work Phone: [facility] HospitalIkowxmkxvd80-85-1027 13:04-0400Body mass index (BMI) [Ratio]29.59 kg/x4Jfmgc William DO Work Phone: [facility] HospitalEkgomyxlnq11-83-4406 13:04-0400Body moygev13.2 kg Doc William DO Work Phone: [facility] HospitalVbwwbgpvyt74-49-8489 13:04-0400Diastolic blood myzquiyf23 mm[Hg]Doc William DO Work Phone: [phone] [place], [place] [address]Fylzlfgezt60-25-6210 13:04-0400Systolic blood lekxkhan974 mm[Hg]Doc William DO Work Phone: 1(679)[facility] [place], [place] [address]Iyejsojqcg16-70-3326 13:57-0400Body mass index (BMI) [Ratio]29.42 kg/x9StskymmnLuna Qiuly FIELD SERVICES ANALYST Work Phone: 1(419)[facility] [place], [place] [address]Ecvuclusrq36-38-5333 13:57-0400Body iimqhg23.75 kgKrniviaa Enio FIELD SERVICES ANALYST Work Phone: 1(367)[facility] [place], [place] [address]Wkcrureoft84-24-8736 13:57-0400Diastolic blood owaroebe02 mm[Hg]Luna Enio FIELD SERVICES ANALYST Work Phone: 1(952)[facility] [place], [place] [address]Fjkusbnbtc44-20-8169 13:57-0400Systolic blood fdroapzh764 mm[Hg]Luna Qiuly FIELD SERVICES ANALYST Work Phone: 1([phone])[facility] [place], [place] [address]Xeomqtaqmq14-66-5819 14:07-0400Body mass index (BMI) [Ratio]28.84 kg/l6Nsstl William DO Work Phone: 1(229)[facility] [place], [place] [address]Yzjxfvaznx54-16-8721 14:07-0400Body xitexp00.2 kg Doc William DO Work Phone: 1(377)[facility] [place], [place] [address]Ffaapxxglo55-90-7907 14:07-0400Diastolic blood iwpsgvml03 mm[Hg]Doc William DO Work Phone: 1(512)[facility] [place], [place] [address]Xckgzvvdqd72-20-2056 14:07-0400Systolic blood bkkisjqu936 mm[Hg]Doc William DO Work Phone: 1(830)[facility] [place], [place] [address]Ynmlpskage09-28-0239 14:04-0400Body mass index (BMI) [Ratio]29.95 kg/h4TfwgdixeLuna Conraderly FIELD SERVICES ANALYST Work Phone: [phone])[facility] [place], [place] [address]Sxszbgsxyu14-10-6860 14:04-0400Body kaqinu54.15 kgKrselene Conraderly FIELD SERVICES ANALYST Work Phone: 1(464)[facility] [place] [address]-10-2025 14:04-0400Diastolic blood ytqkwuiv08 mm[Hg]Luna Enio FIELD SERVICES ANALYST Work Phone: 1([phone] [place], [place] [address]Mffawhtlln48-90-5519 14:04-0400Systolic blood agbduztb001 mm[Hg]Luna Enio FIELD SERVICES ANALYST Work Phone: [phone] [place], [place] [address]Aifoqqfxsb24-18-0791 14:39-0400Body mass index (BMI) [Ratio]28.49 kg/m2Pretty ARELLANO Work Phone: 1(364)144-[address] [place], [place] [address]Jkwvxocjge59-74-1752 14:39-0400Body rlmavo97.3 kg Pretty ARELLANO Work Phone: [phone])343-[address] [place] [address]-13-2025 14:39-0400Diastolic blood xqejjdqi67 mm[Hg]Pretty ARELLANO Work Phone: 1(280)384-[address] [place], [place] [address]Gekyugnooc24-70-2163 14:39-0400Systolic blood papxogge320 mm[Hg]Pretty ARELLANO Work Phone: 1(825)[facility] [place], [place] [address]Haxnzelymp21-61-3460 15:34-0400Body mass index (BMI) [Ratio]28.29 kg/h7Rutwy William DO Work Phone: 1(453)[facility] [place], [place] [address]Cnbxfvrhsm15-19-8478 15:34-0400Body oqkwjk21.75 kgCorey William DO Work Phone: 1(806)158-[address] [place], [place] [address]Kwksmzjbef27-62-6923 15:34-0400Diastolic blood bbvebgjs70 mm[Hg]Doc William DO Work Phone: 1(856)[facility] [place], [place] [address]Ifrvgoblmr87-30-1225 15:34-0400Systolic blood uhxqkawh002 mm[Hg]Doc William DO Work Phone: [phone])664-[address] [place], [place] [address]Kzczhnrryt53-45-5946 14:27-0400Body mass index (BMI) [Ratio]30.21 kg/l4Vxpnn William DO Work Phone: 1(272)121-[address] [place], [place] [address]Gzfdllmrbi00-84-2404 14:27-0400Body htziuk73.83 kgCorey William DO Work Phone: 1(725)555-[address] [place], [place] [address]Maipescxal80-90-5776 14:27-0400Diastolic blood sbzivxia15 mm[Hg]Doc William DO Work Phone: [facility] HospitalKpuyyopqct89-56-0086 14:27-0400Systolic blood mrvsnawi731 mm[Hg]Doc William DO Work Phone: [facility] HospitalHjrvmdjkxk48-42-2778 15:41-0500Body foqobg680.6 cmDavid Pocos DO Work Phone: [facility] HospitalBlyfmxankq07-09-9265 15:41-0500Body mass index (BMI) [Ratio]30.21 kg/o6Qnsgo Pocos DO Work Phone: [facility] HospitalSdtfhckwfx09-98-6262 15:41-0500Body .83 kgDavid Pocos DO Work Phone: [facility] HospitalHxpdgyakcx96-95-9614 15:26-0500Body vovpcs505.6 cmEtyshawn Payne MD Work Phone: [facility] HospitalUpwywfefhx85-74-2798 15:26-0500Body mass index (BMI) [Ratio]30.21 kg/m1VlizkxRosalie Payne MD Work Phone: [facility] HospitalTwdyrtzwta11-75-6541 15:26-0500Body lbmfyh59.83 kgRosalie Payne MD Work Phone: [facility] HospitalPifsaelejh19-27-8406 15:26-0500Heart rate88 /min Rosalie Payne MD Work Phone: [facility] HospitalFeeohsjlxn49-78-5422 15:26-5467TyB3% (BldA) [Mass fraction]98 %Rosalie Payne MD Work Phone: [facility] HospitalQulhsglmml15-98-5552 08:00-0400Body sgnupb605.6 cmKelvin Schwartz DO Work Phone: [facility] HospitalKsylitnvwd93-17-9435 08:00-0400Body mass index (BMI) [Ratio]30.9 kg/g6PcofqKelvin Schwartz DO Work Phone: [facility] HospitalIjwgwexobf53-72-3150 08:00-0400Body mawbyo92.65 kgKelvin Schwartz DO Work Phone: [facility] HospitalDskdkrmcmu39-50-0446 14:25-0400Diastolic blood owdsuwqo50 mm[Hg]MD Rosalie Payne Work Phone: [facility]06-17-2024 14:25-0400 Heart rate80 /minMD Rosalie Payne Work Phone: 1(553)458-[address] [place], [place] 0767706-17-2024 14:25-0400 Respiratory rate18 /minMD Rosalie Payne Work Phone: 1(567)178-[address] [place], [place] 4391506-17-2024 14:25-0400 SaO2% (BldA) [Mass fraction]100 %MD Rosalie Payne Work Phone: [facility]06-17-2024 14:25-0400 Systolic blood mm[Hg]MD Rosalie Payne Work Phone: 1(793)697-[address] [place], [place] 0767706-17-2024 11:31-0400 Body .1 cmOK Rosalie Payne Work Phone: 1(061)410-[address] [place], [place] 0767706-17-2024 11:31-0400 Body sfvqnfyotqa31.4 [degF]MD Rosalie Payne Work Phone: [facility]06-17-2024 11:31-0400 Body .11 kgMD Rosalie Payne Work Phone: 1(722)118-[address] [place], [place] 0767705-09-2024 14:21-0400 Body iqhdfw322.1 cmUniversity [facility]als [facility]05-09-2024 14:21-0400Body mass index (BMI) [Ratio]28.3 kg/u7GmjaaysboUniversity Hospitals Cleveland Medical Center05-09-2024 14:21-0400Body ecplkk80.11 kgUniversity Hospitals [facility]05-09-2024 14:21-0400Diastolic blood tppzowqx16 mm[Hg][facility] 07-25-2023 14:21-0400Heart rate81 /[facility] 07-25-2023 14:21-0400Systolic blood zjglvawp534 mm[Hg][facility]01-17-2024 14:55-0500Diastolic blood qibvibjz05 mm[Hg]Myron Caroos [address]01-17-2024 14:55-0500Heart hgci783 /minDavid Pocos [address] [place], [place] 5474701-17-2024 14:55-0500Mean blood xhfudrgx947 mm[Hg]Myron Pocos [address] [place], [place] 5474701-17-2024 14:55-0500 Systolic blood pnatzuqw809 mm[Hg]Myron Pocos [address] [place], [place] 4905501-17-2024 14:53-0500Heart rate98 /minDavid Pocos [address]01-17-2024 14:53-3412KcO6% (BldA) [Mass fraction]99 %Myron Pocos [address] [place], [place] 5474701-17-2024 14:53-0500 Diastolic blood ijfttykp64 mm[Hg]Myron Caroos [address] [place], [place] 5474701-17-2024 14:53-0500Mean blood mm[Hg]Myron Caroos [address] [place], [place] 5474701-17-2024 14:53-0500 Systolic blood jqpdgjba503 mm[Hg]Myron Caroos [address] [place], [place] 5474701-17-2024 14:52-0500 Respiratory rate16 /minDavid Pocos [address] [place], [place] 5474701-15-2024 10:45-0500Body efnahr382.1 cmAmanda Kristine Other [place] [employer] Other 01-15-2024 10:45-0500Body mass index (BMI) [Ratio] 28.29 kg/z8Jdiuyj Kristine Other [employer] Other 01-15-2024 10:45-0500Body vlgftkgtetb90.1 [degF]Destinee Kristine Other [employer] Other 01-15-2024 10:45-0500Body ptuwcn87.11 kgAmanda Kristine Other [employer] Other 01-15-2024 10:45-0500Respiratory rate18 /minAmanda Kristine Other [employer] Other 01-15-2024 10:45-4707XeT7% (BldA) [Mass fraction]99 % Destinee Kristine Other [employer] Other 06-06-2022 11:25-0400Body .1 cmPamela Martha Other [employer] Other 06-06-2022 11:25-0400Body mass index (BMI) [Ratio] 27.12 kg/n8Norjgn Martha Other [employer] Other 06-06-2022 11:25-0400Body mmjtpzxpkdo62.6 [degF]Carlie Marhta Other [employer] Other 06-06-2022 11:25-0400Body .94 kgPamela Martha Other [employer] Other 06-06-2022 11:25-0400Respiratory rate18 /minPamela Martha Other [phone] [employer] Other 06-06-2022 11:25-2904SjP7% (BldA) [Mass fraction]97 % Carlie Thomas Other [facility] [employer] Other 03-09-2022 20:36-0500Body ipuyirtfxme44.7 [degF]Artis Carter DO Work Phone: [facility] HospitalSynetiqYqxoeo44-50-6346 20:36-0500Diastolic blood gajjnwtj67 mm[Hg]Artis Carter DO Work Phone: [facility] HospitalSynetiqDccgon10-08-4985 20:36-0500Heart xrjk269 /min Artis Carter DO Work Phone: [facility] HospitalSynetiqQtfvek81-54-3764 20:36-0500Respiratory rate16 /minArtis Carter DO Work Phone: [facility] HospitalSynetiqNddzoy87-26-7567 20:36-8717ZwI3% (BldA) [Mass fraction]97 %Artis Yoder DO Work Phone: [facility] HospitalSynetiqPxwfkf96-09-8664 20:36-0500Systolic blood ixqfffcr068 mm[Hg]Artis Yoder DO Work Phone: [facility] HospitalSynetiqBqrioo34-18-3715 13:10-0500Body .1 cm Adriana Evangelista Other noValmarc [employer] Other 02-24-2022 13:10-0500Body mass index (BMI) [Ratio] 27.12 kg/o4PfocjfbymAdriana Evangelista Other [employer] Other 02-24-2022 13:10-0500Body rbzelgkvrho00.8 [degF] Adriana Evangelista Other [employer] Other 02-24-2022 13:10-0500Body tbddiz44.94 kgStjen Evangelista Other [employer] Other 02-24-2022 13:10-0500Diastolic blood ioakwlqw53 mm[Hg] Adriana Garciaault Other [employer] Other 02-24-2022 13:10-0500Respiratory rate18 /minSfeliz Jean Carlos Other [employer] Other 02-24-2022 13:10-3295NeC6% (BldA) [Mass fraction]99 % Adriana Garciaault Other [employer] Other 02-24-2022 13:10-0500Systolic blood mm[Hg] Adriana Garciaault Other [employer] Other 02-14-2022 11:40-0500Body vrnpax325.1 cmPamela Martha Other [employer] Other 02-14-2022 11:40-0500Body mass index (BMI) [Ratio] 26.62 kg/m1Ijumci Martha Other [employer] Other 02-14-2022 11:40-0500Body eiiglswmexw52.6 [degF]Carlie Lewismond Other [employer] Other 02-14-2022 11:40-0500Body rzecwt03.58 kgPashreyas Lewismond Other [employer] Other 02-14-2022 11:40-0500Respiratory rate18 /minPashreyas Thomas Other [employer] Other 02-14-2022 11:40-2021SgA0% (BldA) [Mass fraction]99 % Carlie Thomas Other [facility] [employer] Other 01-21-2022 12:00-0500Body kzoghx571.1 Ronal Ramirez Other [facility] [employer] Other 01-21-2022 12:00-0500Body mass index (BMI) [Ratio] 26.62 kg/o0YubndbSandeep Ramirez Other [employer] Other 01-21-2022 12:00-0500Body crfhbvseetb69.6 [degF]Sandeep Ashley Other [place] [employer] Other 01-21-2022 12:00-0500Body xsfxue82.58 kgSandeep Ramirez Other [employer] Other 01-21-2022 12:00-0972XeI1% (BldA) [Mass fraction]98 % Wilfridemerita Ramirez Other [employer] Other 09-28-2021 23:25-0400Diastolic blood pvocsqun78 mm[Hg] David Dominguez MD Work Phone: [employer] Work Phone: 1(468) 503-918509-28-2021 23:25-0400Systolic blood izbhtpam268 mm[Hg] David Dominguez MD Work Phone: [employer] Work Phone: 1(618) 425-418409-28-2021 23:23-0400Body lwcvec962.1 Mira Dominguez MD Work Phone: [employer] Work Phone: 1(462) 574-600209-28-2021 23:23-0400Body mass index (BMI) [Ratio] 26.63 kg/j2BgwopyoDavid Dominguez MD Work Phone: [facility] [employer] Work Phone: 1(944) 297-479609-28-2021 23:23-0400Body bvtwcctevfx30.29 [degF] David Dominguez MD Work Phone: [facility] [employer] Work Phone: 1(600) 701-628909-28-2021 23:23-0400Body bqabay93.58 kgDavid Dominguez MD Work Phone: [facility] [employer] Work Phone: 1(529) 748-523009-28-2021 23:23-0400Heart rate79 /Sharon Dominguez MD Work Phone: [facility] [employer] Work Phone: 1(487) 137-324709-28-2021 23:23-0400Respiratory rate14 /Sharon Dominguez MD Work Phone: [facility] [employer] Work Phone: 1(803) 610-353209-28-2021 23:23-0457NuZ9% (BldA) [Mass fraction]99 % David Dominguez MD Work Phone: [facility] [employer] Work Phone: 1(598) 181-929107-05-2021 15:56-0400Body cmpimiwjzvh43.6 [degF][employer] Work Phone: 1(708) 103-739307-05-2021 15:56-0400Diastolic blood szeqxjms85 mm[Hg] [employer] Work Phone: 1(360) 656-749807-05-2021 15:56-0400Heart xbda846 /minE[employer] Work Phone: 1(277) 123-688807-05-2021 15:56-0400Respiratory rate16 /minE[employer] Work Phone: 1(537) 276-200407-05-2021 15:56-8105BrK5% (BldA) [Mass fraction]100 % [employer] Work Phone: 1(482) 812-300707-05-2021 15:56-0400Systolic blood adcnyuno361 mm[Hg] [employer] Work Phone: Encounters Encounter DateEncounter TypeCare ProviderFacilityStart: 01-20-2025 End: 54-04-9721Zecfta Herson ARELLANO Work Phone: [facility]YNStart: 01-20-2025 End: 29-13-5335Egnczm flowsheetPretty ARELLANO Work Phone: [facility]YNStart: 01-20-2025 End: 08-24-3245Lpznzati flow sheetPretty ARELLANO Work Phone: [facility] OBGYNComment on above:Third trimester ([facility] 35 weeks gestation of ([facility])Start: 01-11-2025 End: 04-77-2626Fzeskchbv Result EncounterCorey William DO Work Phone: [facility] External Department UnsolicitedStart: 01-11-2025 End: 41-13-8112Tnaxpoawa Result EncounterCorey William DO Work Phone: [facility] External Department UnsolicitedStart: 01-05-2025 End: 67-38-3341Kqwgzu flowsheetCorey William DO Work Phone: [facility]YNStart: 01-05-2025 End: 19-84-6443Avuqet flowsheetCorey William DO Work Phone: [facility]YNStart: 01-05-2025 End: 16-05-6462Cedurhdm flow sheetCorey William DO Work Phone: [facility] OBGYNComment on above:Third trimester ([facility] 33 weeks gestation of ([facility])Start: 01-05-2025 End: 98-86-1795osfztbkkygVHUSJ FAZIONot AvailableStart: 01-02-2025 End: 72-40-5288Sfdsqpvcx Result EncounterGeneric External Data ProviderNOMS External Department UnsolicitedStart: 01-02-2025 End: 99-05-2294Nqcdexufj Result EncounterGeneric External Data ProviderNOMS External Department UnsolicitedStart: 12-26-2024 End: 34-57-8437Xusyopxvb Result EncounterGeneric External Data ProviderNOMS External Department UnsolicitedStart: 12-26-2024 End: 39-73-0026Ozcftsjpw Result EncounterGeneric External Data ProviderNOMS External Department UnsolicitedStart: 12-23-2024 End: 19-24-3840Xlqwxh flowsRuss Steen FIELD SERVICES ANALYST Work Phone: [facility]YNStart: 12-23-2024 End: 71-64-1337Lywsvh flowsheetLuna Steen FIELD SERVICES ANALYST Work Phone: [facility]YNStart: 12-23-2024 End: 65-39-2598Hmmtiosr flow sheetLuna Steen FIELD SERVICES ANALYST Work Phone: [facility] OBGYNComment on above:Third trimester ([facility]); 31 weeks gestation of ([facility])Start: 12-23-2024 End: 93-60-8790ewwjtemrsdTCLYCWBC EBERLYNot AvailableStart: 12-09-2024 End: 57-27-2384Anbesj flowsheetCorey William DO Work Phone: [facility]YNStart: 12-09-2024 End: 42-14-3889Vlqaeu flowsheetCorey William DO Work Phone: [facility]YNStart: 12-09-2024 End: 90-97-6368Gkoohwzb flow sheetCorey William DO Work Phone: [facility]BGYNComment on above:Third trimester ([facility]); 29 weeks gestation of ([facility]); Yeast infectionStart: 12-09-2024 End: 77-87-0564eqofdyxwrzCXRON FAZIONot AvailableStart: 11-27-2024 End: 03-97-1138lweftyqoxzUDRHY [facility] Hospitaltart: 11-25-2024 End: 15-17-5935Msfbki Cody Steen FIELD SERVICES ANALYST Work Phone: [facility]BGYNStart: 11-25-2024 End: 47-32-7862Qlahzv flowsheetLuna Steen FIELD SERVICES ANALYST Work Phone: [facility]BGYNStart: 11-25-2024 End: 03-23-2644Qnfbafat flow sheetLuna Steen FIELD SERVICES ANALYST Work Phone: [facility] [place] OBGYNComment on above:Second trimester ([facility]); 27 weeks gestation of ([facility]); Evna's diseaseStart: 11-25-2024 End: 88-81-1648ggeewafjxqWOMJTFSY EBERLYNot AvailableStart: 11-24-2024 End: 86-22-4537Pslaqephe Result EncounterGeneric External Data ProviderNOMS External Department UnsolicitedStart: 11-24-2024 End: 46-44-9016Boycgecwd Result EncounterGeneric External Data ProviderNOMS External Department UnsolicitedStart: 11-12-2024 End: 27-55-6320Vswqcssfo Result EncounterGeneric External Data ProviderNOMS External Department UnsolicitedStart: 11-12-2024 End: 34-64-9357Qubaimfpo Result EncounterGeneric External Data ProviderNOMS External Department UnsolicitedStart: 11-03-2024 End: 43-50-2250Btpwyyfag Result EncounterGeneric External Data ProviderNOMS External Department UnsolicitedStart: 11-03-2024 End: 14-24-5364Mnegwknzb Result EncounterGeneric External Data ProviderNOMS External Department UnsolicitedStart: 10-28-2024 End: 85-76-2852Cpodtzk encounter procedureAmy Dm ARELLANO Work Phone: [facility] HealthcareStart: 10-28-2024 End: 50-81-7079Gawimcjw flow sheetPretty ARELLANO Work Phone: [facility]BGYNComment on above:Second trimester ([facility]); 23 weeks gestation of ([facility] Diabetes mellitus screening; STD exposure; Well woman exam with routine gynecological exam; Heart palpitationsStart: 10-28-2024 End: 81-75-3230gzgkqmrckaLEC Magno AvailableStart: 10-28-2024 End: 70-43-5862Ozlpzf Herson ARELLANO Work Phone: [facility]BGYNStart: 10-28-2024 End: 27-22-2431Cqufxk flowsPlacido ARELLANO Work Phone: [facility]BGYNStart: 10-28-2024 End: 56-61-0135Ugtnepxuq Result EncounterGeneric External Data ProviderNOMS External Department UnsolicitedStart: 10-28-2024 End: 52-27-8672Togxiggt Result EncounterLuna Steen FIELD SERVICES ANALYST Work Phone: noms External Department UnsolicitedStart: 10-06-2024 End: 27-50-7521Afmmjdivx Result EncounterCorey William DO Work Phone: noms External Department UnsolicitedStart: 10-06-2024 End: 01-72-4946Itxfdlzwu Result EncounterCorey William DO Work Phone: noms External Department UnsolicitedStart: 09-30-2024 End: 99-85-6852Fyzyvqse flow sheetCorey William DO Work Phone: noms BCP OBComment on above:19 weeks gestation of ([facility]); Second trimester ([facility])Start: 09-30-2024 End: 90-36-2572octpbsevajMHXSE FAZIONot AvailableStart: 09-28-2024 End: 42-37-9989Ilpdifylz Result EncounterGeneric External Data ProviderNOMS External Department UnsolicitedStart: 09-28-2024 End: 35-87-4451Awsrkjoon Result EncounterGeneric External Data ProviderNOMS External Department UnsolicitedStart: 09-02-2024 End: 46-97-7162Txxcffhy flow sheetPretty ARELLANO Work Phone: NOMS BCP OBComment on above:Second trimester ([facility]); 15 weeks gestation of ([facility]); Screening, , for anatomic survey ([facility])Start: 09-02-2024 End: 69-48-8656hfsvdktmoiSJG Magno AvailableStart: 09-02-2024 End: 03-68-1775Mbvjho flowsheetPretty ARELLANO Work Phone: NOMS BCP OBStart: 09-02-2024 End: 95-32-6936Pcqyxh flowsPlacido ARELLANO Work Phone: NOMS BCP OBStart: 08-31-2024 End: 31-99-0820Naycgshco Result EncounterCorey William DO Work Phone: NOMS External Department UnsolicitedStart: 08-31-2024 End: 62-91-6510Gnxfxivfk Result EncounterCorey William DO Work Phone: NOMS External Department UnsolicitedStart: 08-05-2024 End: 77-74-2663Hwwptb flowsheetCorey William DO Work Phone: NOMS BCP OBStart: 08-05-2024 End: 48-64-2137Zgibig flowsheetCorey William DO Work Phone: NOMS BCP OBStart: 08-05-2024 End: 80-76-0334Lildbkao flow sheetCorey William DO Work Phone: NOMS BCP OBComment on above:First trimester ; 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 ; 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)Start: 08-05-2024 End: 47-38-6934apuiupptcqALORD FAZIONot AvailableStart: 07-18-2024 End: 91-77-6558Mmxdmmeet Result EncounterGeneric External Data ProviderNOMS External Department UnsolicitedStart: 07-18-2024 End: 45-04-9273Ogqxzkaup Result EncounterGeneric External Data ProviderNOMS External Department UnsolicitedStart: 07-16-2024 End: 23-74-3867Dzsqee outpatient visit 5 minutesNoms Bcp Ob William NurseNOMS BCP OBComment on above:GA: 3w4yRnpti: 07-16-2024 End: 90-00-0285wflcfvwwvrNWXCQ FAZIONot AvailableStart: 02-26-2024 End: 70-51-2666Soswqcr encounter procedureDavid A Pocos DO Work Phone: [facility] NB ORTHOComment on above:S/P reconstruction of ACL of left knee using bone-patellar tendon-bone autograft (Primary Dx)Start: 02-26-2024 End: 30-69-0826zigxwhtgajHJFRL A POCOSNot AvailableStart: 02-19-2024 End: 03-41-4322Gnagtp outpatient visit 25 minutesEdjay Payne MD Work Phone: NOMS CI FM 100Comment on above:Subclinical hypothyroidism (CMS/HCC) (Primary Dx); 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CMS/HCC); Cigarette smoker; Non morbid obesity due to excess calories; Postural orthostatic tachycardia syndrome (POTS); Abnormal bleeding in menstrual cycleStart: 02-19-2024 End: 08-95-7682syewbjpkzfMRXATT J HEMEYERNot AvailableStart: 02-19-2024 End: 31-27-4803Kiujoh Rodriguez Payne MD Work Phone: NOMS CI FM 100Start: 02-19-2024 End: 78-17-0431Inxszt Rodriguez Payne MD Work Phone: noMS CI FM 100Start: 12-27-2023 End: 22-99-9511yvqyfgrvsiZhcf J Spriggs PT Work Phone: noms FB PTComment on above:Acute pain of left knee (Primary Dx); Status post arthroscopic reconstruction of anterior cruciate ligament of left knee using quadricepstendon autograftStart: 12-27-2023 End: 07-96-9814Hgitlm flowsheetKyle J Lilo PT Work Phone: NOIH FB PTStart: 12-27-2023 End: 15-18-6806Kcvkzo flowsheetKyle J Lilo PT Work Phone: NOPQ FB PTStart: 12-24-2023 End: 77-07-2341ruojczbrsnUtwtqzbi Wright ANTIQUE REPAIRER Work Phone: NOMS FB PTComment on above:Acute pain of left knee (Primary Dx); Status post arthroscopic reconstruction of anterior cruciate ligament of left knee using quadricepstendon autograftStart: 12-24-2023 End: 79-80-5509Kpvtfe Adzillabrian Vieira ANTIQUE REPAIRER Work Phone: NOMS FB PTStart: 12-24-2023 End: 40-34-8888Ffbhoi Adzillabrian Vieira ANTIQUE REPAIRER Work Phone: NOPT FB PTStart: 12-17-2023 End: 84-47-5162alhqkqtikzEjnu J Lilo PT Work Phone: NOMS FB PTComment on above:Acute pain of left knee (Primary Dx); Status post arthroscopic reconstruction of anterior cruciate ligament of left knee using quadricepstendon autograftStart: 12-17-2023 End: 24-75-3470Zkeiuz flowsheetKyle J Lilo PT Work Phone: NOMS FB PTStart: 12-17-2023 End: 12-63-3986Ercast flowsheetKyle J Lilo PT Work Phone: NOMS FB PTStart: 12-09-2023 End: 74-85-8599Bxjwqi Isabel Schwartz DO Work Phone: NOMS SWS ORTHOAOStart: 12-09-2023 End: 42-53-0670Vbtwnq Isabel Schwartz DO Work Phone: NOMS SWS ORTHOAOStart: 12-09-2023 End: 22-81-2497Uvsudzg encounter Hans Schwartz DO Work Phone: NOMS SWS ORTHOAOComment on above:Left knee injury, initial encounter (Primary Dx)Start: 12-03-2023 End: 02-48-5216gpemygtiacNlypsnpq Wright ANTIQUE REPAIRER Work Phone: NOIK FB PTComment on above:Acute pain of left knee (Primary Dx); Status post arthroscopic reconstruction of anterior cruciate ligament of left knee using quadricepstendon autograftStart: 12-03-2023 End: 32-60-8724Xxdupz RentersQ ANTIQUE REPAIRER Work Phone: NOMS FB PTStart: 12-03-2023 End: 25-65-1769Lrqjsq RentersQ ANTIQUE REPAIRER Work Phone: NOOE FB PTStart: 11-19-2023 End: 14-43-7018tburlyvnaqNkldxh Tattersall PTANOMS FB PTComment on above:Acute pain of left knee (Primary Dx); Status post arthroscopic reconstruction of anterior cruciate ligament of left knee using quadricepstendon autograftStart: 11-19-2023 End: 21-50-9253Nmjwva flowsheetMariah Tattersall PTANOMS FB PTStart: 11-19-2023 End: 73-51-6319Okdmgx flowsheetMariah Tattersall PTANOMS FB PTStart: 11-12-2023 End: 52-65-3161rcpkbnthtuDvydohoi Wright ANTIQUE REPAIRER Work Phone: noms FB PTComment on above:Acute pain of left knee (Primary Dx); Status post arthroscopic reconstruction of anterior cruciate ligament of left knee using quadricepstendon autograftStart: 11-12-2023 End: 29-23-5549Rnugls RentersQ ANTIQUE REPAIRER Work Phone: noms FB PTStart: 11-12-2023 End: 47-75-9213Edqcjl RentersQ ANTIQUE REPAIRER Work Phone: NOUY FB PTStart: 95-70-2004Xcf-patient / Non-visitMD Rosalie Payne Work Phone: Count Includes [facility] Work Phone: Start: 09-02-2023 End: 72-30-9191Xbryuzrci to same day surgery centerMD Rosalie Payne Work Phone: [facility] Work Phone: Start: 09-02-2023 End: 96-54-5515ginivytfgwFP Rosalie Payne Work Phone: [facility] Work Phone: Start: 07-25-2023 End: 90-49-8681lskpawxutzUktfafzbiSelect [facility] Work Phone: Start: 07-25-2023 End: 95-09-1867Ueqlhwr encounter procedureCount Includes [facility] Work Phone: Start: 04-23-2023 End: 14-15-1091vqmuhftcxvJmeaa A PocosFacility:FTMCStart: 54-26-7464Ktcih Jennifer Nagy PT Work Phone: noms FB PTStart: 04-03-2023 End: 90-59-1400nkzrvqfsivJwfbq A PocosFacility:FTMCStart: 04-03-2023 End: 11-20-7424Igutbcd encounter procedureDavid A Pocos [facility] Start: 04-01-2023 End: 15-54-7787cipgmvaodnWijiko Kristine Other [facility] [employer] Other Start: 80-65-3023Xjcwdj outpatient visit 15 minutes Destineegianfranco PaganMunicipal [facility] ClydeStart: 05-01-2022 End: 77-52-3467adpxgitlvzIS DOC THOMAS .Facility:L7Aigol: 08-21-2021 End: 64-47-2172aanyxpynaiEohynr Dymond Other [employer] Other Start: 69-39-9286Nxjptd outpatient visit 15 minutes Carlie Lowe [facility] ClydeStart: 07-26-2021 End: 88-85-9710ajmnnlasyaMD DOCZuri THOMAS .Facility:B8Uspkx: 08-60-8147Exwgeyxwd department patient visitBRLUIS Olmedo [facility]: [facility]-24[facility]2021 End: 81-02-6085Whafitsqo department patient visitArtis Yoder Work Phone: [facility] EDComment on above:Contusion of left knee, initial encounter (Primary Dx)Start: 05-11-2021 End: 09-88-6890qbqmuzascbFegwmthiu Breault Other [employer] Other Start: 62-90-3883Nmccoy outpatient visit 15 minutes Adriana EvangelistaFPG Urgent Care ClydeStart: 05-01-2021(URG) Urgent Care Visit Carlie ThomasSPIKEG [facility] ClydeStart: 05-01-2021 End: 18-90-9394pynpuzyzpfDoltfy Dymond Other [employer] Other Start: 04-07-2021 End: 48-34-4018vvctstefarAcozva Taylor Other [employer] Other Start: 82-93-1660Ycxocg outpatient visit 15 minutes Sandeep Holland [facility] ClydeStart: 12-14-2020 End: 87-64-4588Bsmatbbng department patient visitCIARASELI Bedolla [facility]Start: 12-14-2020 End: 30-40-3483Qjeaafxdk department patient visitCiaraseli Dominguez MD Work Phone: [facility] EDComment on above:Tailbone injury, initial encounter (Primary Dx)Start: 09-19-2020 End: 51-05-7736Sltrozjgb department patient visitJ.W. [facility] EDComment on above:Closed head injury, initial encounter (Primary Dx)Start: 07-15-2017 End: 01-02-7263GtpnqmwgeqBUUEXU P VARGASCAdena Health Systemart: 05-15-2017 End: 61-47-7528YkjoxqehtrRUHVFS P VARGASCcleveland clinic foundationand [facility] Hospitalart: 04-30-2017 End: 75-43-9995GxmktdpuowUKJMWV P VARGASCAdena Health Systemart: 04-29-2017 End: 26-58-9938GgimzzphyoYIXCWB P [facility]ITALGASCBet[facility]: 03-13-2017 End: 50-11-4053ZmlbejejcmGERAM MCKENZIE PABLOFacility:[facility] Procedures DateProcedureProcedure DetailPerforming ClinicianStart: 62-85-4992Kgbmx dip stick/tablet rgnt non-auto w/o micrscpAmy Dm ARELLANO Work Phone: Start: 62-10-7244OX OB BPP W NON-STRESSCorey William DO Work Phone: Start: 58-90-8273Talpy dip stick/tablet rgnt non-auto w/o micrscpCorey William DO Work Phone: Start: 33-42-8255LO OB BPP W NON-STRESSGeneric External Data ProviderStart: 22-50-5817JP OB GROWTHGeneric External Data ProviderStart: 66-44-4999RB OB BPP W NON-STRESSGeneric External Data ProviderStart: 03-17-9832LLP THYROID STIM HORMONECorey William DO Work Phone: Start: 49-95-3905Inubm dip stick/tablet rgnt non-auto w/o micrscpLuna Steen NP Work Phone: Start: 47-58-3177Heqee dip stick/tablet rgnt non-auto w/o micrscpCorey William DO Work Phone: Start: 81-70-1910Tnzuz dip stick/tablet rgnt non-auto w/o micrscpLuna Steen FIELD SERVICES ANALYST Work Phone: Start: 37-76-1252FK ECHO DOPPLER COMPLETEGeneric External Data ProviderStart: 62-41-6268XIB 12-LEADGeneric External Data Provider Start: 56-02-8125AHT CBC WITH AUTO DIFFLuna Steen FIELD SERVICES ANALYST Work Phone: Start: 91-90-4401WLSUYUUIX VAGINITIS (HTRX)Luna Steen FIELD SERVICES ANALYST Work Phone: Start: 42-19-9339Hcxxc dip stick/tablet rgnt non-auto w/o micrscpLuna Steen FIELD SERVICES ANALYST Work Phone: Start: 24-47-7300OWI,APTIMA HPV,AGE GDLNAmy Dm ARELLANO Work Phone: Start: 65-73-7358LE OB CERVICAL LENGTHCorey William DO Work Phone: Start: 70-69-6633Capzj dip stick/tablet rgnt non-auto w/o micrscpCorey William DO Work Phone: Start: 08-70-5950ACC THYROID STIM HORMONECorey William DO Work Phone: Start: 90-55-7971Iozzu dip stick/tablet rgnt non-auto w/o micrscpAmy Dm ARELLANO Work Phone: Start: 86-18-7462FTX THYROID STIM HORMONEGeneric External Data ProviderStart: 97-62-7519Vumte dip stick/tablet rgnt non-auto w/o micrscpCorey William DO Work Phone: Start: 81-40-9845IEU TESTCorey William DO Work Phone: Start: 85-19-7373SDG DRUG SCREEN RAPID (URINE)Generic External Data ProviderStart: 42-05-9962Zpiqr dip stick/tablet rgnt non-auto w/o micrscpCorey William DO Work Phone: Start: 81-58-9306Niaahoqs blood count with white cell differential, automatedEdjay Payne MD Work Phone: Start: 74-19-8614Mjoeaqamskiku metabolic panelEdjay Payne MD Work Phone: Start: 10-99-4740Fijehpxuadcgs antibodyEdjay Payne MD Work Phone: Start: 63-34-2760GeqhivlpknkcqmryvkqlgbemjnXF Rosalie Payne Work Phone: Start: 79-31-5933Niulpvq of reconstruction of anterior cruciate ligament tearStatus post arthroscopic reconstruction of anterior cruciate ligament of left knee using quadricepstendon autograftGretbrian Vieira ANTIQUE REPAIRER Work Phone: Start: 07-98-5393Ptdavthjhu examination knee 3 views Artis Yoder DO Work Phone: Start: 09-14-4798Shokc sacrum & coccyx minimum 2 views David Dominguez MD Work Phone: Start: 29-79-7414Cg head/brain w/o contrast material Luis Carlos Fragoso PA-C Work Phone: Cyst of ovary (disorder)Myron Marroquin History of operative procedure on kneeS/P reconstruction of ACL of left knee using bone-patellar tendon-bone autograft Myron Marroquin DO Work Phone: History of reconstruction of anterior cruciate ligament tearStatus post arthroscopic reconstruction of anterior cruciate ligament of left knee using quadricepstendon autograftStefano Khangs PT Work Phone: History of reconstruction of anterior cruciate ligament tearStatus post arthroscopic reconstruction of anterior cruciate ligament of left knee using quadricepstendon autograftGretchen Vieira ANTIQUE REPAIRER Work Phone: History of reconstruction of anterior cruciate ligament tearStatus post arthroscopic reconstruction of anterior cruciate ligament of left knee using quadricepstendon autograftStefano Normaniggs PT Work Phone: History of reconstruction of anterior cruciate ligament tearStatus post arthroscopic reconstruction of anterior cruciate ligament of left knee using quadricepstendon autograftGretchen Vieira ANTIQUE REPAIRER Work Phone: History of reconstruction of anterior cruciate ligament tearStatus post arthroscopic reconstruction of anterior cruciate ligament of left knee using quadricepstendon autograftGretchen Vieira ANTIQUE REPAIRER Work Phone: History of reconstruction of anterior cruciate ligament tearStatus post arthroscopic reconstruction of anterior cruciate ligament of left knee using quadricepstendon autograftMariah Tattersall ANTIQUE REPAIRER Laparoscopic excision of cyst of left ovaryDavid Pocos Plan of Treatment DateCare ActivityDetailAuthorStart: 43-33-8238Xlzyprihp vaccinationInfluenza Vaccine (#1)NOMS HealthcareComment on above:Postponed from 11/16/2024 (Patient Refused)Start: 01-27-2025 End: 70-02-5529Whtkmos encounter otausgbhc74/12/2025 1:40 PM EST Routine [facility] [address] [place], [id number] Doc Thomas, [address] [place] [address] [facility] [place] OBGYNStart: 01-20-2025 End: 57-76-6154Nwxnjke encounter procedureNOMS [place] OBGYNComment on above: ArrivedStart: 01-05-2025 End: 00-27-1917Fylrcyn encounter procedureNOMS [place] OBGYNComment on above: ArrivedStart: 12-23-2024 End: 33-33-7462Rguyzyz encounter procedureNOMS [place] OBGYNComment on above: ArrivedStart: 12-23-2024 End: 40-84-8803Exlxqhidclzg / ancillary services bhpnlphvqa35/08/2025 1:30 PM EDT Ancillary Procedure [facility] [address] [facility] [place] [phone] N[facility] [place] OBGYNStart: 12-09-2024 End: 67-95-5720Qivbefw encounter procedureNOMS [place] OBGYNComment on above: ArrivedStart: 11-25-2024 End: 82-89-7507YR biophysical profile w non stress testUS biophysical profile w non stress test Imaging Routine 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), Expires: 05/25/2025[facility] Work Phone: comment on above:Expected: 11/25/2024 (Approximate), Expires: 05/25/2025Start: 11-25-2024 End: 91-84-5136ZU for pregnancyUS OB follow up transabdominal approach Imaging Routine Evan's disease Expected: 11/25/2024, Expires: 03/27/2025NOMS HealthcareComment on above:Expected: 11/25/2024, Expires: 03/27/2025Start: 11-25-2024 End: 67-91-4843Rytmqpn encounter procedureNOMS [place] OBGYNComment on above: ArrivedStart: 45-83-3665LFTGK-19 Vaccine ( season)COVID-19 Vaccine ( season)NOMS HealthcareStart: 89-86-1885Eexatyhbe vaccinationNOMS HealthcareStart: 10-28-2024 End: 44-49-1820Iehcemp encounter procedureNOMS BCP OBComment on above:Arrived Start: 10-28-2024 End: lead ECGECG 12 lead unit performed ECG Routine Heart palpitations Expected: 10/28/2024 (Approximate), Expires: 10/28/2025NOMS HealthcareComment on above:Expected: 10/28/2024 (Approximate), Expires: 10/28/2025Start: 10-28-2024 End: 62-43-7749QYF panel - Blood by Automated countCBC Lab Routine Diabetes mellitus screening Expected: 10/28/2024 (Approximate), Expires: 10/28/2025[facility] Work Phone: comment on above:Expected: 10/28/2024 (Approximate), Expires: 10/28/2025Start: 10-28-2024 End: 81-46-9014Ffyjrzthddahsj 2D completeEchocardiogram 2D complete Echocardiography Routine Heart palpitations Expected: 10/28/2024 (Approximate), Expires: 10/28/2026NOCT HealthcareComment on above:Expected: 10/28/2024 (Approximate), Expires: 10/28/2026Start: 10-28-2024 End: 88-88-3742Penkjdwldmg of glucose 1 hour after glucose challenge for glucose tolerance testGlucose tolerance, 1 hour Lab Routine Diabetes mellitus screening Expected: 10/28/2024 (Approximate), Expires: 10/28/2025NOCT HealthcareComment on above:Expected: 10/28/2024 (Approximate), Expires: 10/28/2025Start: 09-30-2024 End: 68-57-0673Ikejoig encounter wsjqmwnoc42/16/2025 3:40 PM EDT Routine [facility] [address] [place] [address] Doc Thomas, DO [address] [place] [address] Dr [place], [place] [address] [facility] OBStart: 09-30-2024 End: 17-25-1880Rxeedbqaprsr / ancillary services cizovpyqho42/16/2025 2:30 PM EDT Ancillary Procedure [facility] [address] [place] [address] [facility] OBStart: 09-02-2024 End: 39-36-9921Acekgaq encounter procedureNOHUNTINGTON [facility] OBComment on above:Arrived Start: 09-02-2024 End: 25-78-9105Vsiyw fetoprotein, maternalAlpha fetoprotein, maternal Lab Routine Second trimester ([facility]) Expected: 09/02/2024 (Approximate), Expires: 11/02/2024NOCT HealthcareComment on above:Expected: 09/02/2024 (Approximate), Expires: 11/02/2024Start: 09-02-2024 End: 66-40-0053GC for pregnancyUS OB 14+ weeks anatomy scan Imaging Routine Screening, , for anatomic survey ([facility]) Expected: 09/02/2024, Expires: 12/03/2024[facility] Work Phone: comment on above:Expected: 09/02/2024, Expires: 12/03/2024Start: 08-05-2024 End: 76-06-0621Zrrzsqy encounter procedureNOMS [facility] OBComment on above:Arrived Start: 07-16-2024 End: 93-66-0224GUX/RhABO/Rh Lab Routine Missed menses , unspecified gestational age Expected: 07/16/2024 (Approximate), Expires: 07/16/2025NOCT HealthcareComment on above:Expected: 07/16/2024 (Approximate), Expires: 07/16/2025Start: 07-16-2024 End: 83-05-4004Kqmup type and Indirect antibody screen panel - BloodType and screen Lab Routine Missed menses , unspecified gestational age Expected: 07/16/2024 (Approximate), Expires: 07/16/2025NOCT HealthcareComment on above:Expected: 07/16/2024 (Approximate), Expires: 07/16/2025Start: 07-16-2024 End: 18-60-0521Yhklq of abuse panel - Urine by Screen methodRapid drug screen, urine Lab Routine , unspecified gestational age Encounter for supervision of normal first in first trimester Expected: 07/16/2024 (Approximate), Expires: 07/16/2025[facility] HealthcareComment on above:Expected: 07/16/2024 (Approximate), Expires: 07/16/2025Start: 07-10-2024 End: 37-16-5789OA Pelvis transvaginalUS OB transvaginal Imaging Routine Missed menses Expected: 07/10/2024, Expires: 10/09/2024[facility] Work Phone: comment on above:Expected: 07/10/2024, Expires: 10/09/2024Start: 02-21-2024 End: 59-12-2647Fgmgruk encounter qsmfwmzhi45/06/2024 8:00 AM EST Office Visit [facility] [address] [place] [phone] Myron Marroquin, [address] [place] [address] [facility] ORTHOAOStart: 02-19-2024 End: 88-31-8583Bbzkbwx encounter gyrllhtdy62/04/2024 3:30 PM EST Office Visit [facility] [address] [place] [address] Rosalie Payne MD [address] [place] [address] (Fax) 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CMS/HCC); Chronic fatigue; Cigarette smoker; Non morbid obesity due to excess caloriesNOMS CI FM 100Comment on above: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CMS/HCC); Chronic fatigue; Cigarette smoker; Non morbid obesity due to excess caloriesStart: 02-19-2024 End: 03-08-4787Ishlsjh, randomInsulin, random Lab Routine Non morbid obesity due to excess calories Postural orthostatic tachycardia syndrome (POTS) Expected: 02/19/2024 (Approximate), Expires: 02/18/2025[facility] Work Phone: Comment on above:Expected: 02/19/2024 (Approximate), Expires: 02/18/2025Start: 01-17-2024 End: 27-20-3428qusxskipzo94/01/2024 2:30 PM EDT Treatment [facility] [address] [place] [address] Stefano Nagy, PT [address] [place] [address] [facility] PTStart: 01-14-2024 End: 48-69-1692hxxbvcravs39/29/2024 3:30 PM EDT Treatment [facility] [address] [place] [address] Nereyda Vieira, ANTIQUE REPAIRER [address] [place] [address] NOMS FB PTStart: 01-10-2024 End: 01-50-3311xjyymuxvqs33/25/2024 2:30 PM EDT Treatment [facility] PT [address] [place] [address] Stefano Nagy, PT [address] [place] [address] NOMS FB PTStart: 01-07-2024 End: 02-76-3743jrfbjmfbpd46/22/2024 3:30 PM EDT Treatment [facility] [address] [place] [address] Stefano Nagy, PT [address] [place] [address] NOMS FB PTStart: 01-03-2024 End: 46-22-6180sjuyjmccyy67/18/2024 2:30 PM EDT Treatment [facility] [address] [place] [address] Stefano Nagy, PT [address] [place] [address] NOMS FB PTStart: 12-31-2023 End: 88-44-9066nlpcbtdngs74/15/2024 3:30 PM EDT Treatment [facility] PT [address] [place] [phone] Jennifer Dozier PTANOMS FB PTStart: 12-27-2023 End: 27-55-5019aagdsxvkesZWNY FB PTComment on above:ArrivedStart: 12-24-2023 End: 46-78-8909bzwtpbvevl18/08/2024 3:00 PM EDT Treatment [facility] [address] [place] [phone] Nereyda Vieira, ANTIQUE REPAIRER [address] [place] [address] NOMS FB PTStart: 12-17-2023 End: 76-89-5641pobeoixvwj31/01/2024 3:00 PM EDT Treatment [facility] PT [address] [place] [phone] Stefano Nagy, PT [address] [place] [address] NOMS FB PTStart: 12-09-2023 End: 76-89-8140Hwlpinv encounter procedureNOMS SWS ORTHOAOComment on above: ArrivedStart: 12-03-2023 End: 38-87-9586oxkrbkdkfo53/17/2024 3:30 PM EDT Treatment [facility] [address] [place] [phone] Nereyda Vieira, ANTIQUE REPAIRER [address] [place] [address] ArrivedNOMS FB PT Comment on above:ArrivedStart: 11-19-2023 End: 82-92-1070tnmedppolwAQUN FB PTComment on above:Acute pain of left knee (Primary Dx); Status post arthroscopic reconstruction of anterior cruciate ligament of left knee using quadricepstendon autograftStart: 66-39-1017Fyykcvblt vaccination Influenza Vaccine (#1)NOMS HealthcareStart: 17-90-8498DnfmhnncmSouthview Medical Centertart: 05-07-2023 End: 36-86-7117Scfpqxj encounter hfjyticbf02/20/2024 11:10 AM EST Office Visit [facility] [address] [place] [phone] Doc Thomas, DO [address] [place] [address] N[facility] BCP OBStart: 05-03-2023 End: 22-59-2031Adsjxwn encounter swizvtxqq02/16/2024 11:00 AM EST Office Visit [facility] [address] [place] [address] VaniaMyron beckford, DO [address] [place] [address] [facility]: 04-23-2023 End: 48-94-1027Ddraiim encounter tjibiubxq94/06/2024 8:00 AM EST Procedure Visit [facility] VaniaMyron beckford, DO [address] [place] [address] [facility] EX[facility] DEPStart: 04-22-2023 End: 33-08-8784qwgumwadmd01/05/2024 2:30 PM EST Evaluation [facility] [address] [place] [id number] Stefano Nagy, PT [address] [place] [address] NOMRubia BA PTStart: 64-19-6809Ggiarpeuc vaccinationInfluenza Vaccine (#1)[facility] HospitalStart: 17-57-8238HBzD/Tdap/Td vaccine (5 - Td or Tdap)DTaP/Tdap/Td vaccine (5 - Td or Tdap)[facility] HospitalStart: 04-93-6158Sgymhnskg vaccinationFlu vaccine (#1)[facility] HospitalStart: 58-77-8141Ejvjiatkv for malignant neoplasm of [facility] Start: 82-45-4014DGoH/Tdap/Td vaccine (1 - Tdap)DTaP/Tdap/Td vaccine (1 - Tdap) [facility] Work Phone: start: 23-72-0890Mbygivomxskt Vaccine: Pediatrics (0 to 5 Years) and At-Risk Patients (6 to 64 Years) (1 of 2 - PCV)Pneumococcal Vaccine: Pediatrics (0 to 5 Years) and At-Risk Patients (6 to 64 Years) (1 of 2 - PCV)[facility] HospitalStart: 38-77-7648Ntcbircqd for Chlamydia trachomatis Chlamydia screenMary Rutan Hospitalcy Memorial Health SystemStart: 24-27-0978WTM screeningHIV screenOhiohealth [facility]in [facility] Hospital Start: 82-06-0870Oaepfqrpk vaccine (2 of 2 - 2-dose childhood series)Varicella vaccine (2 of 2 - 2-dose childhood series)[facility] HospitalStart: 64-04-3863DIWPH-19 Vaccine (1)COVID-19 Vaccine (1)[facility] [employer] Phone: start: 28-40-8255Jcgevuezfs ScreenDepression Screen [facility] HospitalStart: 57-45-5589JKB vaccine (1 - 2-dose series)HPV vaccine (1 - 2- dose series)[facility] HospitalStart: 96-04-2679SEFIP-19 Vaccine (1)COVID-19 Vaccine (1)[facility] HospitalStart: 54-78-8753Udvgiaipt vaccine (1 of 2 - 2-dose childhood series)Varicella vaccine (1 of 2 - 2-dose childhood series)[facility] [employer] Phone: start: 58-06-4001Dcklgwrew C screeningHepatitis C screenMer HealthBacteria identified in Urine by CultureUrine culture Microbiology Routine Missed menses Ordered: 07/16/2024[facility] HealthcareComment on above:Ordered: 07/16/2024BC W Auto Differential panel - BloodCBC and differential Lab Routine Missed menses , unspecified gestational age Ordered: 07/16/2024[facility] HealthcareComment on above:Ordered: 07/16/2024HLAMYDIA TRACHOMATIS (GENITO/STI)CHLAMYDIA TRACHOMATIS (GENITO/STI) Lab Routine STD exposure Ordered: 10/28/2024[facility] HealthcareComment on above:Ordered: 10/28/2024 Cytology Cervical or vaginal smear or scraping studyPap Smear Pathology and Cytology Routine Well woman exam with routine gynecological exam Ordered: [facility] HealthcareComment on above:Ordered: 10/28/2024Hemoglobin A1c/Hemoglobin.total in BloodHemoglobin A1c Lab Routine Missed menses , unspecified gestational age Ordered: 07/16/2024[facility] HealthcareComment on above: Ordered: 07/16/2024Hepatitis B virus surface Ag [Presence] in Serum or Plasma by ImmunoassayHepatitis B surface antigen Lab Routine Missed menses , unspecified gestational age Ordered: 07/16/2024[facility] HealthcareComment on above: Ordered: 07/16/2024Hepatitis C virus Ab [Presence] in Serum or Plasma by ImmunoassayHepatitis C antibody Lab Routine Missed menses , unspecified gestational age Ordered: 07/16/2024[facility] HealthcareComment on above:Ordered: 07/16/2024HIV-1/HIV-2 antigen/antibody combination immunoassayHIV-1 and HIV-2 antibodies Lab Routine Missed menses , unspecified gestational age Ordered: 07/16/2024[facility] HealthcareComment on above:Ordered: 07/16/2024Neisseria gonorrhoeae DNA [Presence] in Unspecified specimen by QUEENIE with probe detection Neisseria gonorrhea DNA probe, direct Lab Routine STD exposure Ordered: 10/28/2024[facility] HealthcareComment on above:Ordered: 10/28/2024Patient Education Hiatal hernia Hemorrhoids Gastritis Know your [facility] Work Phone: Reagin Ab [Presence] in Serum by RPRRPR Lab Routine Missed menses , unspecified gestational age Ordered: 07/16/2024[facility] HealthcareComment on above:Ordered: 07/16/2024Rubella antibody, IgGRubella antibody, IgG Lab Routine Missed menses , unspecified gestational age Ordered: 07/16/2024[facility] HealthcareComment on above:Ordered: 07/16/2024 SURESWAB(R) ADVANCED VAGINITIS PLUS, TMASURESWAB(R) ADVANCED VAGINITIS PLUS, TMA Pathology and Cytology Routine STD exposure Ordered: 10/28/2024[facility] Healthcare Comment on above:Ordered: 10/28/2024 End: 50-31-4995Xakuspcmdyf [Units/volume] in Serum or PlasmaTSH Lab Routine 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CMS/HCC) p4vzpnj for 6 Occurrences starting 08/05/2024 until 08/05/2025[facility] Healthcare Work Phone: Comment on above:s2xgcyq for 6 Occurrences starting 08/05/2024 until 08/05/2025US Pelvis transvaginalUS OB transvaginal Imaging Routine Missed menses 07/16/2024 1[facility] Immunizations Immunization DateImmunizationNotesCare RnfqlyauBsiirsrv73-16-0133rfkkeqkmt B vaccine, adult dosageKyle Lilo PT Work Phone: [facility] HospitalFwncwhpdqv34-72-5751qgqcoghckjbrj oligosaccharide (groups A, C, Y and W-135) diphtheria toxoid conjugate vaccine (MCV4O)Stefano Lilo PT Work Phone: [facility] HospitalLysbhzmxeq33-68-3133tmdhgeqvm A vaccine, pediatric/adolescent dosage, 2 dose scheduleKyle Lilo PT Work Phone: [facility] HospitalNwmthycnvu48-33-1460elafeugao A vaccine, pediatric/adolescent dosage, 2 dose scheduleKyle Lilo PT Work Phone: [facility] HospitalWovhgyyhlf29-60-4548nbkcceh toxoid, reduced diphtheria toxoid, and acellular pertussis vaccine, adsorbedKyle Lilo PT Work Phone: [facility] HospitalBhqsnwarwh87-92-6116zltrayikx virus vaccineKyle Lilo PT Work Phone: [facility] HospitalMebumqzdtz37-21-5736npqehgwycrw influenzae type b conjugate and Hepatitis B vaccineKyle Lilo PT Work Phone: [facility] HospitalVmqettwtzv76-02-5883ksjzusolmfw influenzae type b vaccine, HbOC conjugateKyle Lilo PT Work Phone: [facility] HospitalUapvowykap49-89-6087xzelluoxw B vaccine, pediatric or pediatric/adolescent dosageKyle Lilo PT Work Phone: [facility] HospitalYnoyqoqeca23-04-3188qtvrwad, mumps and rubella virus vaccineKyle Lilo PT Work Phone: [facility] HospitalPehevsljze98-84-5959ujhdovydfp vaccine, inactivatedKyle Lilo PT Work Phone: [facility] HospitalVhibvugcjk38-94-4765BFmY-Ooyueqekyzj influenzae type b conjugate vaccineStefano Nagy PT Work Phone: [facility] HospitalHrqaaztogr91-27-8702wgmgfumsuetg conjugate vaccine, 7 valentStefano Nagy PT Work Phone: [facility] HospitalChmwllhbzt73-27-0842lkrihxrqqc, tetanus toxoids and acellular pertussis vaccine, Haemophilus influenzae type b conjugate, and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
[2025-01-20 15:07] VITALS: BP 111/70; PULSE 88
--- NOTE | 2025-01-20 15:16 | US_ITS ---
[place] [id number] Patient Name: ALETA ELLINGTON MRN: [id number] date: 2000 Sex: F Assigned Patient Location: [facility] Current Patient Location: Accession/Order Number: [id number] Exam Date: 01/20/2025 15:17 Report Date: 01/20/2025 17:10 At the request of: SINTIA MARIE DO Procedure: US OB BPP w non-stress Ultrasound biophysical profile HISTORY: Gabby's thyroiditis Adequate breathing movement, gross body movement, tone and amniotic fluid volume for total score of 8 out of 8. The amniotic fluid index is 16.6cm within normal limits. The heart rate 155 bpm. US/US OB BPP w non-stress IMPRESSION: Adequate ultrasound biophysical profile Impression dictated by: Loi Ellington M.D. 01/20/2025 5:10 PM Dictation Location: [facility] Electronically authenticated by: [id number] Y Date: 01/20/2025 17:10
== END 2025-01-20 15:53 | disposition home or self-care (01) ==
LOC: FBCO 14:51 → FBC 15:05
PROVIDERS: PCP Family Medicine; Visit Provider Obstetrics & Gynecology
DX: O99.283 Endocrine, nutritional and metabolic diseases complicating pregnancy, third trimester (principal); Z3A.35 35 weeks gestation of pregnancy
CPT/HCPCS: 76818

== ENCOUNTER 2025-01-23 08:04 | Outpatient (OUT) | payer BC, SELFPAY ==
--- OUTSIDE RECORDS SUMMARY | 2024-12-23 13:00 | XMS_ITS | Encounter Summary ---
Author Organization [facility] Address [address] [place] [address] Care Team Providers Care Client Service Coordinator Name Role Phone Danny Schuler MD Primary Care Provider [phone] Danny Schuler MD Unavailable [phone] Reason for Visit * ReasonCommentsRoutine Visit Encounter Details DateTypeDepartmentCare Team (Latest Contact Info)Bpglzhwmiiq40/08/2025 2:00 PM EDTRoutine [facility] [address] [place] [address] Jessica Steen, [place] [address] [place] [address] Third trimester ([facility]); 31 weeks gestation of ([facility]) Social History Tobacco UseTypesPacks/DayYears UsedDateSmoking Tobacco: [...] relatives?Once a week12/11/2022How often do you attend quaker or episcopal services?More than 4 times per year12/11/2022o you belong to any clubs or organizations such as quaker groups, unions, fraVizerra or athletic groups, or school groups?No12/11/2022How often [...] food, housing, medical care, and heating?Somewhat hard 12/11/2022[facility] [place] of Occupational Health - Occupational Stress QuestionnaireAnswerDate RecordedDo you feel stress - tense, restless, nervous, or anxious, or unable to sleep at night because yourmind is troubled all the time - these days?Only a rykpwy3312/11/2022Exercise Vital SignAnswerDate Recorded On average, how many [...] steady place to sleep or slept in [place] (including now)?No12/11/2022EducationAnswer Date RecordedWhat is the highest level of school you have completed or the highest degree you have received?11th grade12/10/2022Estimated Date of XkkincxsXsmrdiazWpw00/06/2025ased on last menstrual period of 05/16/2024Sex and Gender InformationValueDate RecordedSex Assigned at UrdzzTahiij99/25/2023 10:10 AM EDTLegal SuuRxoqko92/15/2023 6:51 PM EDTGender JbksvcpjChddef46/25/2023 10:10 AM EDTSexual OrientationNot on filedocumented as of this encounter Last Filed Vital Signs Vital SignReadingTime TakenCommentsBlood Gjmqaobj933/7012/23/2024 1:57 PM EDT Pulse--Temperature--Respiratory Rate--Oxygen Saturation--Inhaled Oxygen Concentration--Onkifx96.7 kg (171 lb 6.4 oz)12/23/2024 1:57 PM [...] Left 2019 OVARIAN CYST REMOVAL Left 05/20/2020 [facility] William VAGINAL DELIVERY REVIEW OF SYSTEMS [...] nursing note reviewed. Exam conducted with a commercial hvac technician present. Vitals: Estimated body mass index is 29.42 kg/m?? as calculated from the following: Height as of 02/26/24: 5' 4 . Weight as of this encounter: 171 lb 6.4 oz. BP: 110/70 Patient's last menstrual period was 05/16/2024. ASSESSMENT & PLAN ICD-10-CM 1. Third trimester ([facility]) Z34.93 2. 31 weeks gestation of ([facility]) Z3A.31 POCT urinalysis dipstick manually resulted [...] Plan of Treatment DateTypeDepartmentCare Team (Latest Contact Info)Wkiqsdpzbnc25/12/2025 1:40 PM ESTRoutine [facility] [address] [place] [address] Doc Thomas DO [address] [place] [place], [place] [id number] documented as of this encounter Procedures Procedure NamePriorityDate/TimeAssociated DiagnosisCommentsPOCT URINALYSIS XZFHANSNTzjcixn33/08/2025 2:01 PM EDT 31 weeks gestation of ([facility]) documented in this encounter Results * (ABNORMAL) [...] this encounter Visit Diagnoses Diagnosis Third trimester ([facility]) state, incidental 31 weeks gestation of ([facility]) documented in this encounter Care Teams Team MemberRelationshipSpecialtyStart DateEnd Date Danny Schuler MD [address] [facility] [address] [place] [address] PCP - GeneralFamily Medicine07/24/22 Danny Schuler MD [address] [place] [address] PCP - Ziggy Richard06/16/20documented as of this encounter
--- OUTSIDE RECORDS SUMMARY | 2025-01-20 13:50 | XMS_ITS | Encounter Summary ---
Author Organization [facility] Address [address] [place] [address] Care Team Providers Care Mill Order Scheduler Name Role Phone Danny Schuler MD Primary Care Provider [phone] Danny Schuler MD Unavailable [phone] Reason for Visit * ReasonCommentsRoutine Visit Encounter Details DateTypeDepartmentCare Team (Latest Contact Info)Uzdipvybxfq52/05/2025 1:50 PM ESTRoutine [facility] [address] [place] [phone] Pretty Chaidez PA [address] [place], [place] [id number] Third trimester ([facility]); 35 weeks gestation of ([facility]) Social History Tobacco UseTypesPacks/DayYears UsedDateSmoking Tobacco: [...] relatives?Once a week12/11/2022How often do you attend sikh or church services?More than 4 times per year12/11/2022o you belong to any clubs or organizations such as sikh groups, unions, fraTelemedicine Solutions LLC or athletic groups, or school groups?No12/11/2022How often [...] food, housing, medical care, and heating?Somewhat hard 12/11/2022[facility] [place] of Occupational Health - Occupational Stress QuestionnaireAnswerDate RecordedDo you feel stress - tense, restless, nervous, or anxious, or unable to sleep at night because yourmind is troubled all the time - these days?Only a tdqhbe6112/11/2022Exercise Vital SignAnswerDate Recorded On average, how many [...] degree you have received?11th grade12/10/2022Estimated Date of GmduwsmuJxtpaxttYwz96/06/2025Based on last menstrual period of 05/16/2024Sex and Gender InformationValueDate RecordedSex Assigned at RocviZdqkqs25/25/2023 10:10 AM EDTLegal VjaQevuzt33/15/2023 6:51 PM EDTGender FnwwvlnySdtkwp13/25/2023 10:10 AM EDTSexual OrientationNot on filedocumented as of this encounter Last Filed Vital Signs Vital SignReadingTime TakenCommentsBlood Hlctmile28/6001/20/2025 2:02 PM EST Pulse--Temperature--Respiratory Rate--Oxygen Saturation--Inhaled Oxygen Concentration--Uqhokd20.3 kg (174 lb 12.8 oz)01/20/2025 2:02 PM ESTHeight--Body Mass Wskhl4682/11/2024 3:41 PM ESTdocumented in this encounter Progress Notes * ADAN Gonzalez - 01/20/2025 1:50 PM EST Reason for Appointment: Patient ID: Rachel Castro [...] Left 2019 OVARIAN CYST REMOVAL Left 05/20/2020 [facility] William VAGINAL DELIVERY REVIEW OF SYSTEMS Review of Systems: Review of Systems Constitutional: Negative. HENT: Negative. Eyes: Negative. Respiratory: Negative. Cardiovascular: Negative. Gastrointestinal: Negative. Genitourinary: Negative. Musculoskeletal: Negative. Skin: Negative. Neurological: Negative. All other systems reviewed and are negative. Hematological: Negative. Endocrine: Negative. Allergic/Immunologic: Negative. OBJECTIVE Objective: Physical Exam Constitutional: Appearance: Normal appearance. She is normal weight. HENT: Head: Normocephalic. Cardiovascular: Rate and Rhythm: Normal rate. Pulses: Normal pulses. Pulmonary: Effort: Pulmonary effort is normal. Breath sounds: Normal breath sounds. Abdominal: Palpations: Abdomen is soft. Musculoskeletal: General: Normal range of motion. Neurological: General: No focal deficit present. Mental Status: She is alert and oriented to person, place, and time. Psychiatric: Mood and Affect: Mood normal. Behavior: Behavior normal. Thought Content: Thought content normal. Judgment: Judgment normal. Vitals and nursing note reviewed. Vitals: Estimated body mass index is 30 kg/m?? as calculated from the following: Height as of 02/26/24: 5' 4 . Weight as of this encounter: 174 lb 12.8 oz. BP: 98/60 Patient's last menstrual period was 05/16/2024. Assessment/Plan ICD-10-CM 1. Third trimester ([facility] Z34.93 2. 35 weeks gestation of ([facility]) Z3A.35 POCT urinalysis dipstick manually resulted Return OB: Patient presents today for a routine obstetrics appointment. Patient is currently 35w4d . Patient states she is doing well but has complaints of being tired due to current . Patient has verbalizes frequent movement. labor precautions was discussed/given and patient was instructed to perform kick counts three times a day. Orders Placed This Encounter Procedures POCT urinalysis dipstick manually resulted Follow Up: Patient is to return to office in 1 week for routine OB appointment. Documented by ADAN Gonzalez on behalf of: ADAN Gonzalez documented in this encounter Plan of Treatment DateTypeDepartmentCare Team (Latest Contact Info)Jbmbgpnbpqp32/12/2025 1:40 PM ESTRoutine [facility] [address] [place] [address] WilliamDoc leiva, DO [address] [place] [address] documented as of this encounter Procedures Procedure NamePriorityDate/TimeAssociated DiagnosisCommentsPOCT URINALYSIS PMPLYNIHNrdzdlk68/05/2025 2:07 PM EST 35 weeks gestation of ([facility]) documented in this encounter Results * (ABNORMAL) POCT urinalysis dipstick manually resulted (01/20/2025 2:07 PM EST) ComponentValueRef RangeTest MethodAnalysis TimePerformed AtPathologist SignatureColor, UAYellowClarity, UAClearGlucose, UATraceNegative - 2000(110) ++++ mg/dLBilirubin, UANegativeNegative - 4(70) +++ mg/dLKetones, UANegative Negative - 160(16) ++++ mg/dLSpec Grav, UA1.0301 - 1.03Blood, UANegative Negative - 50 Randall/mcLpH, UA5.55 - 9Protein, UA1+Negative - 2000(20) ++++ mg/dL Urobilinogen, UA1.00.2 - 12 mg/dLLeukocytes, UANegativeNegative - 500+++ Rick/mcLNitrite, UANegativeNegative - PositiveSpecimen (Source)Anatomical Location / LateralityCollection Method / VolumeCollection TimeReceived Time Urine01/20/2025 2:07 PM EST Narrative Authorizing ProviderResult TypeResult StatusPretty [facility]ZO[facility] TEST ENTER/EDIT ORDERABLESFinal Result documented in this encounter Visit Diagnoses Diagnosis Third trimester ([facility] state, incidental 35 weeks gestation of ([facility]) documented in this encounter Care Teams Team MemberRelationshipSpecialtyStart DateEnd Date Danny Schuler MD [address] [address] PCP - GeneralFamily Medicine07/24/22 Danny Schuler MD [address] [address] PCP - Ziggy Richard06/16/20documented as of this encounter
--- OUTSIDE RECORDS SUMMARY | 2025-01-23 08:07 | XMS_ITS | Clinical Summary ---
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 Name Role Phone Danny Payne MD Primary Care Provider [phone] Danny Payne MD Unavailable [phone] Allergies Active AllergyReactionsCriticalityNoted QiefUkbjnavzBqmyzukedyhvXtwyd23/05/2021 Other Reaction(s): hives DwsfbCgapKyq22/05/2021 Other Reaction(s): Unknown Uoibzyzxc96/25/2023 Other Reaction(s): body numbness Medications MedicationSigDispense QuantityRefillsLast FilledStart DateEnd DateStatus ondansetron (Zofran) 4 MG tablet Indications:Nausea and vomiting in ([facility])Take 1 tablet (4 mg) by mouth every 6 (six) hours if needed for nausea or vomiting for up to 30 doses Take 1 tablet by mouth every 6 hours as needed for nausea. 30 tablet 5Active Active Problems ProblemNoted DateDiagnosed DateAbnormal bleeding in menstrual cycle02/19/2024 Status post arthroscopic reconstruction of anterior cruciate ligament of left knee using quadricepstendon hnbkieypr80/23/2024cute pain of left knee04/22/2023 Chronic uvlxolm7712/10/2022igarette lvzggc3712/10/2022yst of ovary12/10/2022 Gabby's olnmthm9612/10/2022Hypotension determined by ncqsfccsjoh16/25/2023 Juvenile osteochondrosis of tibial hvxgfrwaiy79/25/2023Non morbid obesity due to excess rtqracad88/25/2023Postural orthostatic tachycardia syndrome (POTS) 12/10/2022Subclinical mghyigkgonqath38/25/2023Estimated Date of Delivery RoqlixarIxi06/06/2025Based on last menstrual period of 05/16/2024 Resolved Problems ProblemNoted DateDiagnosed DateResolved DateOverweight (BMI 25.0-29.9)12/10/2022 02/19/2024 Encounters DateTypeDepartmentCare ThcvZlkuwgptbhj44/07/2025[place] [phone] Sintia Thomas, DO 01/20/2025 1:50 PM [place] [phone] Pretty Chaidez PA Third trimester ([facility]); 35 weeks gestation of ([facility])01/20/2025linisync Result Encounter [facility]OM[facility] External Department Unsolicited Sintia Thomas, DO 01/20/2025ambalan [place] [address] Pretty Chaidez PA 01/11/2025linisync Result Encounter NOMS External Department Unsolicited Sintia Thomas, DO 01/05/2025 1:00 [place] [phone] Sintia Thomas, Third trimester ([facility]); 33 weeks gestation of ([facility])01/05/2025amboo [place] [phone] Sintia Thomas, DO 5Clinisync Result Encounter [facility]OM[facility] External Department Unsolicited Provider, Generic External Data 12/26/2024linisync Result Encounter NOMS External Department Unsolicited Provider, Generic External Data 12/26/2024linisync Result Encounter NOMS External Department Unsolicited Provider, Generic External Data 12/26/2024linisync Result Encounter NOMS External Department Unsolicited Sintia Thomas DO 12/23/2024 2:00 PM EDTRoutine [facility] [place] [facility] [address] [address] Jessica Steen NP Third trimester ([facility]); 31 weeks gestation of ([facility])12/23/2024Refill [facility] [place] [facility] [address] [address] Azalea Schmitz MA Nausea and vomiting in ([facility])12/23/2024amboo flowsheet [facility] [place] [facility] [address] [address] Jessica Steen NP 12/09/2024 2:00 PM EDTRoutine [facility] [place] [facility] [address] [address] Sintia Thomas, Third trimester ([facility]); 29 weeks gestation of ([facility]); Yeast nciinmptm73/24/2025amboo flowsheet [facility] [place] [facility] [address] [address] Sintia Thomas, 12/01/2024Telephone [facility] [place] [facility] [address] [phone] Azalea Schmitz MA 11/27/2024bstract [facility] [place] [facility] [address] [address] Sintia Thomas, 11/25/2024 1:50 PM EDTRoutine [facility] [place] [facility] [address] [address] [address] Jessica Steen NP Second trimester ([facility]); 27 weeks gestation of ([facility]); Gabby's jkxvdxz9511/25/2024amboo flowsheet [facility] [place] [facility] [address] [address] [phone] Jessica Steen NP 11/24/2024linisync Result Encounter NOMS External Department Unsolicited Provider, Generic External Data 11/19/2024Telephone [facility] [place] [facility] [address] [facility] [address] [phone] Janet Narayanan MA 11/12/2024linisync Result Encounter NOM[facility] External Department Unsolicited Provider, Generic External Data 11/06/2024Orders Only [facility] [place] [facility] [address] [place] [address] Coretta Cardenas LPN 11/05/2024Telephone [facility] [place] [facility] [address] [facility] [address] [address] [phone] Azalea Schmitz MA 11/04/2024Telephone [facility] [place] [facility] [address] [place] [phone] Azalea Schmitz MA 11/03/2024linisync Result Encounter NOMS External Department Unsolicited Provider, Generic External Data 11/03/2024Telephone [facility] [place] [facility] [address] [place] [phone] Azalea Schmitz [place] 10/28/2024 2:30 PM EDTRoutine [facility] [place] [facility] [address] [facility] [place] [address] Pretty Chaidez PA Second trimester ([facility]); 23 weeks gestation of ([facility]); Diabetes mellitus screening; STD exposure; Well woman exam with routine gynecological exam; Heart jxjdeagiiotx89/13/2025linisync Result Encounter [facility]OMS External Department Unsolicited Provider, Generic External Data 10/28/2024External Result Encounter [facility] External Department Unsolicited Jessica Steen NP 10/28/2024amboo flowsheet [facility] [place] [facility] [address] [place] [address] [place] [address] Pretty Chaidez PA from Last 3 Months Immunizations ImmunizationAdministration DatesNext DueDTaP / HiB / IPV1999,1999 DTaP / Hib03/26/2000Hep A, ped/adol, 2 dose03/31/2012,08/31/2011Hep B, Adolescent or Kojiwfykb02/27/2001,1999,1999Hep B, adult11/12/2016Hib (HbOC)09/11/2000Hib / Hep B009/11/2000IPV09/11/2000MMR09/11/2000Meningococcal ZYO1U8911/12/2016Pneumococcal Conjugate PCV 7003/26/20000159Aioc79/15/2012Varicella 08/31/2011 Family History Medical HistoryRelationNameCommentsNo Known ProblemsBrotherHyperlipidemia [...] you been afraid of your partner or ex-partner?No09/26/2023Within the last year, have you been humiliated [...] relatives?Once a week12/11/2022How often do you attend voodoo or yazidi services?More than 4 times per year12/11/2022o you belong to any clubs or organizations such as voodoo groups, unions, fraDidi-Dache or athletic carmen ups, or school groups?No12/11/2022How often do you attend meetings of the clubs or organizations you belong to?Never12/11/2022re you , , , , never , or living with a partner?Ibgnsjg3412/11/2022 AUDIT-CAnswerDate RecordedQ1: How often do you have [...] food, housing, medical care, and heating?Somewhat hard12/11/2022 [employer] - Occupational Stress Questionnaire AnswerDate RecordedDo you feel stress - tense, restless, nervous, or anxious, or unable to sleep at night because yourmind is troubled all the time - these days? Only a daiskz8312/11/2022Exercise Vital SignAnswerDate RecordedOn average, how many days [...] steady place to sleep or slept in [facility] (including now)?No12/11/2022EducationAnswerDate RecordedWhat is the highest level of school you have completed or the highest degree you have received?11th grade12/10/2022Estimated Date of DeliveryCommentsYes 5Based on last menstrual period of 05/16/2024Sex and Gender Information ValueDate RecordedSex Assigned at VhcgfBbdyop06/25/2023 10:10 AM EDTLegal Sex Ashldp5605/30/2022 6:51 PM EDTGender VxsdccljWdjdwt57/25/2023 10:10 AM EDTSexual OrientationNot on file Last Filed Vital Signs Vital SignReadingTime TakenCommentsBlood Mwcjjdzm82/6011 2:02 PM EST Byyek9231/06/2023 3:26 PM ERAQykpvppsvyg41.4 ??C (97.5 ??F)05/03/2023 11:22 AM ESTRespiratory Rate--Oxygen Plzjnqpzuq85%02/19/2024 3:26 PM ESTInhaled Oxygen Concentration--Ccwjnr67.3 kg (174 lb 12.8 oz)01/20/2025 2:02 PM WHVZyivtx054.6 cm (5' 4 )02/26/2024 3:41 PM ESTBody Mass Jctjh7459/11/2024 3:41 PM EST Plan of Treatment DateTypeDepartmentCare Team (Latest Contact Info)Mftyookyvoe97/12/2025 1:40 PM ESTRoutine [facility] [place] [facility] [address] [address] Sintia Thomas DO [address] [place] [address] Health MaintenanceDue DateLast DoneCommentsPneumococcal Vaccine: Pediatrics (0 to 5 Years) and At-Risk Patients (6 to 64 Years) (1 of 2 - PCV)06/09/2018 03/26/2000COVID-19 Vaccine (1 - season)2024Influenza Vaccine (#1) 2025Postponed from 11/16/2024 (Patient Refused) Procedures Procedure NamePriorityDate/TimeAssociated DiagnosisCommentsUS OB BPP W NON-TWEMJP4801/20/2025 5:10 PM EST POCT URINALYSIS DXWKJFCHObafrjw65/05/2025 2:07 PM EST 35 weeks gestation of ([facility]) US OB BPP W NON-INGQYQ5801/11/2025 9:15 PM EDT POCT URINALYSIS NZYYWMHCUfwbpiw36/21/2025 1:04 PM EDT 33 weeks gestation of ([facility]) US OB BPP W NON-TDYLFM1401/02/2025 3:02 PM EDT US OB XPINLV0712/26/2024 11:31 AM EDT US OB BPP W NON-CYPPSB8312/26/2024 11:19 AM EDT ALL THYROID STIM TRMQTARTjurrsd49/11/2025 8:13 AM EDT POCT URINALYSIS SXQMHPNYMvejsdn16/08/2025 2:01 PM EDT 31 weeks gestation of ([facility]) POCT URINALYSIS IVUMKNTZOikhdds60/24/2025 2:14 PM EDT Third trimester ([facility]) POCT URINALYSIS FYVRXAENChshoqx67/10/2025 3:33 PM EDT Second trimester ([facility]) CA ECHO DOPPLER PVKKOZTI76/09/2025 4:39 PM EDT ECG 12-LEAD11/12/2024 12:06 PM EDT ALL THYROID STIM LKGCTZCNzavojz57/19/2025 4:00 PM EDT GLUCOSE 1 UOMTKthjnld45/19/2025 4:00 PM EDT ALL CBC WITH AUTO QMUVAeawmbb09/19/2025 4:00 PM EDT RECURRENT VAGINITIS (HTRX)Yrwvaih0210/28/2024 4:48 PM EDT POCT URINALYSIS YAHHEZZCNcvidsj15/13/2025 2:43 PM EDT Second trimester ([facility]) IGP,APTIMA HPV,AGE NXHIYexmaas77/13/2025 2:25 PM EDT PAP QSNXMSqsccjf04/13/2025 12:00 AM EDTfrom Last 3 Months Results * US OB BPP W NON-STRESS (01/20/2025 5:10 PM EST) Only the most recent of4 resultswithin the time period is included. Anatomical RegionLateralityModalityOtherSpecimen (Source)Anatomical Location / LateralityCollection Method / VolumeCollection TimeReceived Time01/20/2025 5:10 PM EST Narrative 01/20/2025 5:13 PM EST [facility] ?[address] ? [place] [address] ? Ultrasound Report ? Signed ? Patient: ALETA CASTRO N ?MR#: [id number] ?? : 2000 ?Acct:[id number] ?? Age/Sex: 24 / F ?ADM Date: 01/20/25 ?? Loc: FBCO ? Attending Dr: Sintia Thomas D.O. ? Ordering Physician: Sintia Thomas D.O. ?? Date of Service: 01/20/25 ?? Procedure(s): US OB BPP w non-stress ?? Accession Number(s): [id number] ? cc: Sintia Thomas D.O.; DANNY PAYNE ? [facility] ? [address] ? [place] [address] ? Patient Name: ?? ALETA CASTRO ? MRN: [facility]:[id number] ? date: 2000 ?Sex: F ?? Assigned Patient Location: FBC ?? Current Patient Location: ? Accession/Order Number: [id number] ?? Exam Date: 01/20/2025 ??15:17 ?Report Date: 01/20/2025 ??17:10 ? At the request of: ?? SINTIA ??WILLIAM ??DO ? Procedure: ??US OB BPP w non-stress ? Ultrasound biophysical profile ? HISTORY: Gabby's thyroiditis ? Adequate breathing movement, gross body movement, tone and ?? amniotic fluid volume for total score of 8 out of 8. ??The amniotic fluid index ?? is 16.6cm within normal limits. ??The heart rate 155 bpm. ? US/US OB BPP w non-stress ?? IMPRESSION: Adequate ultrasound biophysical profile ? Impression dictated by: Loi Ellington M.D. ??01/20/2025 5:10 PM ? Dictation Location: RADIO-PC-20 ? Electronically authenticated by: [id number] ??Y ?? Date: 01/20/2025 ??17:10 ? Dictated By: ?Loi Ellington D.O. ? Signed By: ?11/05/ 1713 ? DD/DT: /05/ 1710 ? TD/TT: ? Tool Filer Hand: Procedure Note Radiology, Radiologist, - 01/20/2025 [place] [address] Ultrasound Report Signed Patient: ALETA CASTRO NMR#: [id number] : 2000Acct:[id number] Age/Sex: 24 / FADM Date: 01/20/25 Loc: FBCO Attending Dr: Sintia Thomas D.O. Ordering Physician: Sintia Thomas D.O. Date of Service: 01/20/25 Procedure(s): US OB BPP w non-stress Accession Number(s): [id number] cc: Sintia Thomas D.O.; DANNY PAYNE [facility] [place] [id number] Patient Name: ALETA CASTRO MRN: [id number] date: 2000 Sex: F Assigned Patient Location: [facility] Current Patient Location: Accession/Order Number: [id number] Exam Date: 01/20/2025 15:17 Report Date: 01/20/2025 17:10 At the request of: SINTIA THOMAS DO Procedure: US OB BPP w non-stress Ultrasound biophysical profile HISTORY: Gabby's thyroiditis Adequate breathing movement, gross body movement, tone and amniotic fluid volume for total score of 8 out of 8. The amniotic fluidindex is 16.6cm within normal limits. The heart rate 155 bpm. US/US OB BPP w non-stress IMPRESSION: Adequate ultrasound biophysical profile Impression dictated by: Loi Ellington M.D. 01/20/2025 5:10 PM Dictation Location: [place] [address] Electronically authenticated by: [id number] Y Date: 7:10 Dictated By: Loi Ellington D.O. Signed By:01/20/251712 DD/ 09 TD/TT: Tool Filer Hand: Authorizing ProviderResult TypeResult StatusCorey William DOCLINISYNC IMAGINGFinal Result * (ABNORMAL) POCT urinalysis dipstick manually resulted (01/20/2025 2:07 PM EST) Only the most recent of6 resultswithin the time period is included. ComponentValueRef RangeTest MethodAnalysis TimePerformed AtPathologist Signature Color, UAYellowClarity, UAClearGlucose, UATraceNegative - 2000(110) ++++ mg/dL Bilirubin, UANegativeNegative - 4(70) +++ mg/dLKetones, UANegativeNegative - 160(16) ++++ mg/dLSpec Grav, UA1.0301 - 1.03Blood, UANegativeNegative - 50 Randall/mcLpH, UA5.55 - 9Protein, UA1+Negative - 1999(20) ++++ mg/dLUrobilinogen, UA 1.00.2 - 12 mg/dLLeukocytes, UANegativeNegative - 500+++ Rick/mcLNitrite, UA NegativeNegative - PositiveSpecimen (Source)Anatomical Location / Laterality Collection Method / VolumeCollection TimeReceived GvmqNherf90/05/2025 2:07 PM EST Narrative Authorizing ProviderResult TypeResult StatusAmy [facility] OF CARE TEST ENTER/EDIT ORDERABLESFinal Result * US OB GROWTH (12/26/2024 11:31 AM EDT)Anatomical RegionLateralityModalityOther Specimen (Source)Anatomical Location / LateralityCollection Method / Volume Collection TimeReceived Time12/26/2024 11:31 AM EDT Narrative 12/26/2024 11:33 AM EDT [facility] ?[address] ? [place] [address] ? Ultrasound Report ? Signed ? Patient: RAKELALETA N ?MR#: [id number] ?? : 2000 ?Acct:[id number] ?? Age/Sex: 24 / F ?ADM Date: 12/26/24 ?? Loc: US ? Attending Dr: Sintia Thomas D.O. ? Ordering Physician: Sintia Thomas D.O. ?? Date of Service: 12/26/24 ?? Procedure(s): US OB growth ?? Accession Number(s): [id number] ? cc: Sintia Thomas D.O.; DANNY PAYNE ? [facility] ? [address] ? [place] [address] ? Patient Name: ?? ALETA CASTRO ? MRN: [facility]:[id number] ? date: 2000 ?Sex: F ?? Assigned Patient Location: ?? Current Patient Location: ? Accession/Order Number: [id number] ?? Exam Date: 12/26/2024 ??09:00 ?Report Date: [...] 52 bpm. ? motion documented by the theatrical performer.. ? Estimated weight 2093 g 71.4%. ? [...] M.D. ??12/26/2024 11:31 AM ? Dictation Location: [facility]- ? Electronically authenticated by: [id number] ??Y ?? Date: 12/26/2024 ??11:31 ? Dictated By: ?Deshaun Aguilar M.D. ? Signed By: ?12/26/24 1133 ? DD/ 1131 ? TD/TT: ? Tool Filer Hand: Procedure Note Radiology, Radiologist, MD - 12/26/2024 [place] [address] Ultrasound Report Signed Patient: ALETA CASTRO#: [id number] : 2000Acct:[id number] Age/Sex: 24 / FADM Date: 12/26/24 Loc: US Attending Dr: Sintia Thomas D.O. Ordering Physician: William,Sintia D.O. Date of Service: 12/26/24 Procedure(s): US OB growth Accession Number(s): [id number] cc: Sintia Thomas D.O.; DANNY PAYNE [address] [address] Patient Name: ALETA CASTRO MRN: [id number] date: 2000 Sex: F Assigned Patient Location: US Current Patient Location: Accession/Order Number: [id number] Exam Date: 12/26/2024 09:00 Report Date: 12/26/2024 11:31 At the request of: SINTIA THOMAS DO Procedure: US OB growth Obstetric ultrasound for growth INDICATION: Gabby's disease FINDINGS: Single live anterior cephalic presentationlongitudinal lie. Amniotic fluid index 12.4 cm between the gestational age fifth mdq26no percentile. Largest pocket of fluid 5.1 cm. heart rate 1 52 bpm. motion documented by the theatrical performer.. Estimated weight 2093 g 71.4%. Gestation age 32 weeks and 0 days. Biparietal diameter 7.93 m. Head circumference 30.7 cm. Otherwise the 10.6 cm. Abdominal circumference 28.9 cm. Femur length 6.4 cm. US/US OB growth IMPRESSION: Single live intrauterine of approximately 30 weeks Impression dictated by: Deshaun Aguilar M.D. 12/26/2024 11:31 AM Dictation Location: [place] [address] Electronically authenticated by: [id number] Y Date: 1:31 Dictated By: Deshaun Aguilar M.D. Signed By:12/26/24 1133 DD/ 1131 TD/TT: Tool Filer Hand: Authorizing ProviderResult TypeResult StatusGeneric External Data Provider [...] EDT Narrative 11/24/2024 4:40 PM EDT [facility] ?[address] ? [place] [address] ? Cardiology Report ? Signed ? Patient: ALETA CASTRO ?MR#: [id number] ?? : 2000 ?Acct:[id number] ?? Age/Sex: 24 / F ?ADM Date: 11/12/24 ?? Loc: CARD ? Attending Dr: Jessica Steen ? Ordering Physician: Jessica Steen ?? Date of Service: 11/12/24 ?? Procedure(s): CA echo doppler complete ?? Accession Number(s): [id number] ? cc: Jessica Steen; DANNY PAYNE ? Patient Name: ? [facility] ? MR#: [id number] ? : 2000 ? Exam Date: 11/12/2024 [...] 1640 ? DD/ 1639 ? TD/TT: ? Tool Filer Hand: Procedure Note Radiology, Radiologist, MD - 11/24/2024 [place] [address] Cardiology Report Signed Patient: ALETA CASTRO NMR#: [id number] : 2000Acct:[id number] Age/Sex: 24 / FADM Date: 11/12/24 Loc: CARD Attending Dr: Jessica Steen Ordering Physician: Jessica Steen Date of Service: 11/12/24 Procedure(s): CA echo doppler complete Accession Number(s): [id number] cc: Jessica Steen; DANNY PAYNE Patient Name: ALETA CASTRO MR#: [id number] : 2000 Exam Date: 11/12/2024 Ordering Doctor: JESSICA STEEN [facility] ECHOCARDIOGRAM REPORT PROCEDURE: CA ECHO DOPPLER [...] M.D. Signed By:11/24/24 1640 DD/ 1639 TD/TT: Tool Filer Hand: Authorizing ProviderResult TypeResult StatusGeneric External Data Provider CLINISYNC IMAGINGFinal Result * ECG 12-LEAD (11/12/2024 12:06 PM EDT)Anatomical RegionLateralityModalityOther Specimen (Source)Anatomical Location / LateralityCollection Method / Volume Collection TimeReceived Time11/12/2024 12:06 PM EDT Narrative 11/13/2024 1:34 PM EDT [facility] ?[address] ? [place] [address] ? Electrocardiograph Report ? Signed ? Patient: ALETA CASTRO N ?MR#: [id number] ?? : 2000 ?Acct:[id number] ?? Age/Sex: 24 / F ?ADM Date: 11/12/ ?? Loc: CARD ? Attending Dr: Jessica Steen ? Ordering Physician: Jessica Steen ?? Date of Service: 11/12/ ?? Procedure(s): ECG 12 lead ?? Accession Number(s): [id number] ? cc: ?[facility] ? Test Date: ?2024-11-12 ?? Pat Name: ? SUMMER RAKEL ?Department: ? Room: ? - ?? Gender: ? Female ? Cathead Operator: ? : ?2000 ? Requested By: JESSIAC STEEN ?? Order Number: [id number] ?Reading MD: ?? Samar Samantha ? Measurements ?? Intervals ?[place] ? Rate: ? 79 ? P: ?42 ?? VT: ? 158 ?QRS: ?81 ?? QRSD: ? 90 ? T: ?41 ?? QT: ? 353 ? QTc: ?405 ? Interpretive Statements ?? SINUS RHYTHM ?? Normal EKG ?? No previous ECG available for comparison ?? Electronically Signed On 11-13-2024 13:34:21 EDT by Bibi Singh ? Dictated By: ?Bbii Singh M.D. ? Signed By: ?08/29/25 1334 ?08/29/25 1334 ? DD/DT: 11/12/ 1206 ? TD/TT: ? Tool Filer Hand: Procedure Note Radiology, Radiologist, - 11/13/[address] [address] Electrocardiograph Report Signed Patient: ALETA CASTRO#: [id number] : 2000Acct:[id number] Age/Sex: 24 / FADM Date: 11/12/24 Loc: CARD Attending Dr: Jessica Steen Ordering Physician: Jessica Steen Date of Service: 11/12/24 Procedure(s): ECG 12 lead Accession Number(s): [id number] cc: [facility] Test Date: 2024-11-12 Pat Name: ALETA CASTRO Department: Room: - Gender: Female Cathead Operator: : 2000 Requested By: JESSICA STEEN Order Number: [id number] Reading MD: Bibi Singh Measurements Intervals [place] Rate: 79 P: 42 VT: 158 QRS: 81 QRSD: 90 T: 41 QT: 353 QTc: 405 Interpretive Statements SINUS RHYTHM Normal EKG No previous ECG available for comparison Electronically Signed On 11-13-2024 13:34:21 EDT by Bibi Singh Dictated By: Bibi Singh M.D. Signed By:11/13/24 1334 11/13/24 1334 DD/ 1206 TD/TT: Tool Filer Hand: Authorizing ProviderResult TypeResult StatusGeneric External Data Provider CLINISYNC IMAGINGFinal Result * GLUCOSE 1 HOUR (11/03/2024 4:00 PM EDT)ComponentValueRef RangeTest Method Analysis TimePerformed AtPathologist SignatureGLUCOSE 1 GKQP829<130 mg/dLTBH Specimen (Source)Anatomical Location / LateralityCollection Method / Volume Collection TimeReceived Time11/03/2024 4:00 PM EDT11/03/2024 4:01 PM EDT Narrative CLINISYNC - 11/03/2024 6:33 PM EDT Authorizing ProviderResult TypeResult StatusJessica Steen NPLAB BLOOD ORDERABLESFinal ResultPerforming OrganizationAddressCity/State/ZIP CodePhone Number CLINISYNC TB * (ABNORMAL) ALL CBC WITH AUTO DIFF (11/03/2024 4:00 PM EDT)ComponentValueRef RangeTest MethodAnalysis TimePerformed AtPathologist SignatureTBH WBC6.64.0 - 11.0 10 3/uLTBHTBH RBC3.34(L)4.20 - 5.40 10 6/uLTBHTBH HGB10.8(L)12.0 - 16.0 g/dLTBHTBH HCT31.2(L)36.0 - 48.0 %TBHTBH MCV93.481.0 - 99.0 fLTBHTBH MCH32.3 26.7 - 34.0 pgTBHTBH MCHC34.629.9 - 35.2 g/dLTBHTBH RDW12.711.0 - 15.0 %TBHTBH SHJ405044 - 450 10 3/uLTBHTBH MPV9.79.5 - 13.5 [...] PM EDT)ComponentValueRef RangeTest MethodAnalysis TimePerformed AtPathologist SignatureATOPOBIUM HXQDQMJ598.961 - 24.689 ppm10/30/2024 7:27 AM EDTHealthTrackRx at LabPortATOPOBIUM VAGINAENot Jymoyjem19.961 - 24.689 ppm10/30/2024 7:27 AM EDTHealthTrackRx at LabPortBVAB 2,3 (BACTERIAL VAGINOSIS ASSOCIATED BACTERIA 2, 3); MOBILUNCUS XLD004.961 - 24.689 ppm10/30/2024 7:27 AM EDTHealthTrackRx at LabPortBVAB 2,3 (BACTERIAL VAGINOSIS ASSOCIATED BACTERIA 2, 3); MOBILUNCUS SPPNot Irtxxkjs97.961 - 24.689 ppm10/30/2024 7:27 AM EDTHealthTrackRx at LabPortCANDIDA ALBICANS, PARAPSILOSIS, HYMZZLSBET456.000 - 30.347 ppm10/30/2024 7:27 AM EDT [facility] LabPortCANDIDA ALBICANS, PARAPSILOSIS, TROPICALISNot Detected 23.000 - 30.347 ppm10/30/2024 7:27 AM EDTHealthTrackRx at LabPortCANDIDA QSYQOHLC247.000 - 31.618 ppm10/30/2024 7:27 AM EDTHealthTrackRx at LabPort RICKEY GLABRATANot Uvzodbwy54.000 - 31.618 ppm10/30/2024 7:27 AM EDT [facility] at LabPortCANDIDA XWKCNF462.000 - 30.873 ppm10/30/2024 7:27 AM EDTHealthTrackRx at LabPortCANDIDA KRUSEINot Bkosshbq06.000 - 30.873 ppm 10/30/2024 7:27 AM EDTHealthTrackRx at LabPortCHLAMYDIA QOSXULQPDTH619.000 - 31.586 ppm10/30/2024 7:27 AM EDTHealthTrackRx at LabPortCHLAMYDIA TRACHOMATIS Not Psuqhbok60.000 - 31.586 ppm10/30/2024 7:27 AM EDTHealthTrackRx at LabPort GARDNERELLA ZIZPZMZSJ174.961 - 24.689 ppm10/30/2024 7:27 AM EDTHealth[facility]enGARDNERELLA VAGINALISNot Akrcedhg79.961 - 24.689 ppm10/30/2024 7:27 AM EDTHealth[facility]Rx at LabPortMEGASPHAERA (TYPES 1, 2)019.961 - 24.689 ppm 10/30/2024 7:27 AM EDTHealth[facility] at LabPortMEGASPHAERA (TYPES 1, 2)Not Vbubintn75.961 - 24.689 ppm10/30/2024 7:27 AM EDT[facility] NEISSERIA OPXYQTOBHWX361.000 - 32.587 ppm10/30/2024 7:27 AM EDTHealth[facility] at LabCommunity [facility] BremenNEISSERIA GONORRHOEAENot Svenzavp62.000 - 32.587 ppm10/30/2024 7:27 AM EDTHealthTrackRx at LabPortTRICHOMONAS XKJBXOBAU163.000 - 31.995 ppm 10/30/2024 7:27 AM EDTHealthTrackRx at LabPortTRICHOMONAS VAGINALISNot Mfmxmtlm01.000 - 31.995 ppm10/30/2024 7:27 AM EDTHealthTrackRx at LabPort MYCOPLASMA LWGEPDYQHU815.961 - 24.689 ppm10/30/2024 7:27 AM EDTHealthTrackRx at LabPortMYCOPLASMA GENITALIUMNot Siynircw16.961 - 24.689 ppm10/30/2024 7:27 AM EDTHealthTrackRx at LabPortSpecimen (Source)Anatomical Location / LateralityCollection Method / VolumeCollection TimeReceived TimeTissue 10/28/2024 4:48 PM EDT10/30/2024 2:18 AM EDT Narrative Authorizing ProviderResult TypeResult StatusJessica Steen NPLAB BLOOD ORDERABLESFinal ResultPerforming OrganizationAddressCity/State/ZIP CodePhone Number [facility] 2425 Replaced By [facility] [address] [place] [address] * IGP,APTIMA HPV,AGE GDLN (10/28/2024 2:25 PM [...] 01 =G ?[facility] ?? [address] [place] ??[address] ?? Ludy Hector MD, IGP, RFX APTIMA HPV ASCUNote.TBHComment: ?? TESTS ? RESULT ??FLAG ??UNITS ?REF RANGE ??LAB DIAGNOSIS: ?02 ?? NEGATIVE FOR INTRAEPITHELIAL LESION OR MALIGNANCY. ?? THIS SPECIMEN WAS RESCREENED PART OF OUR [employer] DRIVER PROGRAM. Specimen adequacy: ?02 ?? Satisfactory for evaluation. No endocervical component is identified. Performed by: ? 02 ?? Brionna Mello Tin Stacker (ASCP) QC reviewed by: ? 02 ?? Polina Simons, Tin Stacker . ? 02 Note: ? Note ?02 [...] High,A-Abnormal,AA-Critical Abnormal Performed at: 02 WB ?[facility] [place] ?? [address] [place], [place] ??[address] ?? Ludy Hector MD, Performed at: ??=G - [facility] [place] [address] [place], [place] ??[phone] Orbitread Operator: Ludy Hector MD, Phone: ??[phone] Performed at: ??WB - [facility] [place], [place] ??[phone] Orbitread Operator: Ludy Hector MD, Phone: ??[phone] Specimen (Source)Anatomical Location / LateralityCollection Method / [...] Months Insurance Care Teams Team MemberRelationshipSpecialtyStart DateEnd Danny Payne MD [address] [place] [address] PCP - GeneralFamily Medicine07/24/22 Danny Payne MD [address] [address] KAT - Ziggy [facility]06/16/20
--- OUTSIDE RECORDS SUMMARY | 2025-01-23 08:07 | XMS_ITS | Encounter Summary ---
Author Organization [facility] Address [address] [place] [address] Care Team Providers Care Supervisor Stave Cutting Name Role Phone Danny Schuler MD Primary Care Provider [phone] Danny Schuler MD Unavailable [phone] Encounter Details DateTypeDepartmentCare Team (Latest Contact Info)Bpztnqjtrlx22/05/2025amboo flowsheet KYE [place] OBGYKristina [address] [place] [phone] Pretty Chaidez PA [address] [place], [place] [address] Social History Tobacco UseTypesPacks/DayYears UsedDateSmoking Tobacco: Some [...] relatives?Once a week12/11/2022How often do you attend confucianist or yazidi services?More than 4 times per year12/11/2022o you belong to any clubs or organizations such as confucianist groups, unions, fraAdEspresso or athletic groups, or school groups?No12/11/2022How often [...] food, housing, medical care, and heating?Somewhat hard 12/11/2022[facility] [place] of Occupational Health - Occupational Stress QuestionnaireAnswerDate RecordedDo you feel stress - tense, restless, nervous, or anxious, or unable to sleep at night because yourmind is troubled all the time - these days?Only a nzuwhn1012/11/2022Exercise Vital SignAnswerDate Recorded On average, how many [...] degree you have received?11th grade3Estimated Date of UcwnuyqwQfoprrmrQkb55/06/2025Based on last menstrual period of 05/16/2024Sex and Gender InformationValueDate RecordedSex Assigned at HxpcjVltehh83/25/2023 10:10 AM EDTLegal NtfJtbcie41/15/2023 6:51 PM EDTGender VnfecchqGfkrdn27/25/2023 10:10 AM EDTSexual OrientationNot on filedocumented as of this encounter Plan of Treatment DateTypeDepartmentCare Team (Latest Contact Info)Qfvckrrpbxq93/12/2025 1:40 PM ESTRoutine [facility] [address] [place] [address] Doc Thomas DO [address] [facility] [place] [address] documented as of this encounter Visit Diagnoses Not on filedocumented in this encounter Care Teams Team MemberRelationshipSpecialtyStart DateEnd Date Danny Schuler MD [address] [address] PCP - GeneralFamily Medicine07/24/22 Danny Schuler MD [address] [address] PCP - [employer]06/16/20documented as of this encounter
--- OUTSIDE RECORDS SUMMARY | 2025-01-23 08:07 | XMS_ITS | Clinical Summary ---
Author Organization [facility] Address [address] [place] [address] Care Team Providers Care Supervisor Pipelines Name Role Phone Unavailable Primary Care Provider Unavailabl e Allergies Active AllergyReactionsCriticalityNoted GyheGhfewivnNgihjqtmhneiMtwkz60/05/2021 Other Reaction(s): hives CpesrEmnrMel35/05/2021 Other Reaction(s): Unknown FoixiiijkVtvibij52/25/2023 Other Reaction(s): body numbness Medications MedicationSigDispense QuantityRefillsLast FilledStart DateEnd DateStatus ondansetron ODT (Zofran-ODT) 4 mg disintegrating tablet Take 4 mg by mouth if needed.Active no.37/iron/folic acid (PRENATA ORAL) Take by mouth in the morning.Active Active Problems ProblemNoted DateDiagnosed Date28 weeks gestation of oathinmuh44/14/2025bnormal bleeding in menstrual cycle02/19/2024Status post arthroscopic reconstruction of anterior cruciate ligament of left knee using quadricepstendon autograft 05/10/2023cute pain of left knee4Chronic isrqlqv7712/10/2022igarette jlqhzy1812/10/2022yst of ovary12/10/2022Hashimoto's zpoidrq5512/10/2022Hypotension determined by /25/2023Juvenile osteochondrosis of tibial tuberosity 12/10/2022Non morbid obesity due to excess wxtdjvec15/25/2023ostural orthostatic tachycardia syndrome (POTS)12/14/20187683Zrcrltnvtue07/15/2019Syncope and muiohpex23/15/2019CommentsYes Encounters DateTypeDepartmentCare JrneRhmiyrqzqwp39/12/2025 3:20 PM EDTOffice Visit [facility] [address] [place] [address] Bibi Singh MD Syncope and collapse (Primary Dx); Neurocardiogenic syncope; 28 weeks gestation of ; Gabby's diseasefrom Last 3 Months Family History RelationNameStatusCommentsFatherAliveMotherAlive Social History Tobacco UseTypesPacks/DayYears UsedDateSmoking Tobacco: FormerCigarettes Smokeless Tobacco: Former Tobacco Cessation:Counseling Given: Not Answered Comments:Quite 6 month ago Alcohol UseStandard Drinks/WeekCommentsNot Currently0 (1 standard drink = 0.6 oz pure alcohol)IA Safety & EnvironmentAnswerDate RecordedFear of Current or Ex-PartnerNot on file05/09/2023Emotionally AbusedNot on file05/09/2023hysically AbusedNot on file05/09/2023Sexually AbusedNot on file05/09/2023hysically or Sexually AbusedNot on file05/09/2023CommentsYesSex and Gender InformationValueDate RecordedSex Assigned at DzagbCanphq25/08/2025 2:10 PM EDT Legal AmvEbdlcs64/29/2022 11:55 PM EDTGender PvnuwqhxVqihjj13/08/2025 2:10 PM EDTSexual OrientationHeterosexual or Hjwjgedp35/08/2025 2:10 PM EDT Last Filed Vital Signs Vital SignReadingTime TakenCommentsBlood Oijtpfgt251/8009 4:02 PM EDT Yazbt409811/27/2024 4:02 PM EDTTemperature--Respiratory Rate--Oxygen Swictuzldf87% 11/27/2024 4:02 PM EDTInhaled Oxygen Concentration--Usxlhh49 kg (172 lb) 11/27/2024 4:02 PM IQRNcijwv516.1 cm (5' 5 )11/27/2024 4:02 PM EDTBody Mass Index28.62011/27/2024 4:02 PM EDT Plan of Treatment Health MaintenanceDue DateLast DoneCommentsIPV Vaccines (4 of 4 - 4-dose series) , 2000, 1999Depression Ohbvhgfev32/25/2012 Varicella Vaccines (2 of 2 - 2-dose childhood series)HPV Vaccines (1 - 3-dose series)06/09/2014dult Lcystrn69COVID-19 Vaccine (1 - season)2024Influenza Vaccine (#1)2024Pap Smear Zoster Vaccines (1 of 2)Pneumococcal Vaccine: Pediatrics (0 to 5 Years) and At-Risk Patients (6 to 64 Years)Aged Out 03/26/2000No longer eligible based on patient's age to complete this topicHIB ChimgaxqDerrdyrgc18/27/2001, 09/11/2000, 03/26/2000, Additional history exists Meningococcal LvjmpkfMauphgrmd36/28/2017Meningococcal B VaccineAged OutNo longer eligible based on patient's age to complete this topicRotavirus VaccinesAged Out No longer eligible based on patient's age to complete this topic Insurance
--- OUTSIDE RECORDS SUMMARY | 2025-01-23 08:07 | XMS_ITS | Encounter Summary ---
Author Organization [facility] Address [address] [place] [address] Care Team Providers Care Wallpaper Embosser Helper Name Role Phone Danny Payne MD Primary Care Provider [phone] Danny Payne MD Unavailable [phone] Encounter Details DateTypeDepartmentCare Team (Latest Contact Info)Datqyhyexdd87/27/2025Clinisync Result Encounter [facility] External Department Unsolicited Sintia Thomas, DO [address] [facility] [address] [place] [place] [phone] Social History Tobacco UseTypesPacks/DayYears UsedDateSmoking Tobacco: Some [...] relatives?Once a week12/11/2022How often do you attend episcopalian or mormon services?More than 4 times per year12/11/2022o you belong to any clubs or organizations such as episcopalian groups, unions, fraTHE EMPTY JOINT or athletic groups, or school groups?No12/11/2022How often [...] food, housing, medical care, and heating?Somewhat hard 12/11/2022[facility] [place] of Occupational Health - Occupational Stress QuestionnaireAnswerDate RecordedDo you feel stress - tense, restless, nervous, or anxious, or unable to sleep at night because yourmind is troubled all the time - these days?Only a fufdmc4312/11/2022Exercise Vital SignAnswerDate Recorded On average, how many [...] degree you have received?11th grade12/10/2022Estimated Date of TexpxohdEeyeszpeKds71/06/2025Based on last menstrual period of 05/16/2024Sex and Gender InformationValueDate RecordedSex Assigned at ToajzMvgrhl20/25/2023 10:10 AM EDTLegal BghJdoobu65/15/2023 6:51 PM EDTGender GpvigrevRtabph22/25/2023 10:10 AM EDTSexual OrientationNot on filedocumented as of this encounter Plan of Treatment DateTypeDepartmentCare Team (Latest Contact Info)Zpihyrftptm59/12/2025 1:40 PM ESTRoutine [facility] [address] [facility] [address] [place] [phone] Sintia Thomas DO [address] [facility] [place] [address] documented as of this encounter Procedures Procedure NamePriorityDate/TimeAssociated DiagnosisCommentsUS OB BPP W NON-BTNKDX8201/11/2025 9:15 PM EDT documented in this encounter Results * US OB BPP W NON-STRESS (01/11/2025 9:15 PM EDT)Anatomical Region LateralityModalityOtherSpecimen (Source)Anatomical Location / Laterality Collection Method / VolumeCollection TimeReceived Time01/11/2025 9:15 PM EDT Narrative 01/11/2025 9:18 PM EDT [facility] ?[address] ? [place] [address] ? Ultrasound Report ? Signed ? Patient: ALETA CASTRO ?MR#: [id number] ?? : 2000 ?Acct:[id number] ?? Age/Sex: 24 / F ?ADM Date: 01/11/25 ?? Loc: US ? Attending Dr: Sintia Thomas D.O. ? Ordering Physician: Sintia Thomas D.O. ?? Date of Service: 01/11/25 ?? Procedure(s): US OB BPP w non-stress ?? Accession Number(s): [id number] ? cc: Sintia Thomas D.O.; DANNY PAYNE ? [facility] ? [address] ? [place] [address] ? Patient Name: ?? ALETA Acevedo RAKEL ? MRN: [facility]:[id number] ? date: 2000 ?Sex: F ?? Assigned Patient Location: [facility] ?? Current Patient Location: ? Accession/Order Number: [id number] ?? Exam Date: 01/11/2025 ??15:03 ?Report Date: [...] Dictation Location: RADIO-PC-29 ? Electronically authenticated by: [id number] ??Y ?? Date: 01/11/2025 ??21:15 ? Dictated By: ?Deshaun Aguilar M.D. ? Signed By: ?01/11/ 2118 ? DD/ ? TD/TT: ? [place] Laborer: Procedure Note Radiology, Radiologist, - 01/11/2025 [place] [address] Ultrasound Report Signed Patient: ALETA CASTRO NMR#: [id number] : 2000Acct:[id number] Age/Sex: 24 / FADM Date: 01/11/25 Loc: US Attending Dr: Sintia Thomas D.O. Ordering Physician: Sintia Thomas D.O. Date of Service: 01/11/25 Procedure(s): US OB BPP w non-stress Accession Number(s): [id number] cc: Sintia Thomas D.O.; DANNY PAYNE [place] [address] Patient Name: ALETA CASTRO MRN: [id number] date: 2000 Sex: F Assigned Patient Location: [facility] Current Patient Location: Accession/Order Number: [id number] Exam Date: 01/11/2025 15:03 Report Date: 01/11/2025 [...] Aguilar M.D. 01/11/2025 9:15 PM Dictation Location: [place] [address] Electronically authenticated by: [id number] Y Date: 1:15 Dictated By: Deshaun Aguilar M.D. Signed By:01/11/252117 DD/ 14 TD/TT: [place] Laborer: Authorizing ProviderResult TypeResult StatusCorey William DOCLINISYNC IMAGINGFinal Result documented in this encounter Visit Diagnoses Not on filedocumented in this encounter Care Teams Team MemberRelationshipSpecialtyStart DateEnd Date Danny Payne MD [address] [place] [address] [facility] - [facility] Danny Payne MD [address] [place] [address] PCP - Ziggy [facility]06/16/20documented as of this encounter
--- OUTSIDE RECORDS SUMMARY | 2025-01-23 08:07 | XMS_ITS | Encounter Summary ---
Author Organization [facility] Address [address] [place] [address] Care Team Providers Care Hot Metal Mixer Operator Name Role Phone Danny Schuler MD Primary Care Provider Danny Schuler MD Unavailable [phone] Encounter Details DateTypeDepartmentCare Team (Latest Contact Info)Nwwrrsfvcij39/07/2025Telephone [facility] [place] [facility] [address] [place] [phone] Doc Thomas DO [address] [facility] [address] [place], [facility] Social History Tobacco UseTypesPacks/DayYears UsedDateSmoking Tobacco: [...] relatives?Once a week12/11/2022How often do you attend oriental orthodox or amish services?More than 4 times per year12/11/2022o you belong to any clubs or organizations such as oriental orthodox groups, unions, fraternal or athletic groups, or [...] and heating?Somewhat hard 12/11/2022Fin[facility] [place] of Occupational Health - Occupational Stress QuestionnaireAnswerDate RecordedDo you feel stress - tense, restless, nervous, or anxious, or unable to sleep at night because yourmind is troubled all the time - these days?Only a ajpauk3112/11/2022Exercise Vital SignAnswerDate Recorded On average, how many [...] degree you have received?11th grade12/10/2022Estimated Date of OpmmkgohLwcafobmZgn80/06/2025Based on last menstrual period of 05/16/2024Sex and Gender InformationValueDate RecordedSex Assigned at LqainGufdrg10/25/2023 10:10 AM EDTLegal XssJbpafy57/15/2023 6:51 PM EDTGender AwqkqdueSwmfuy25/25/2023 10:10 AM EDTSexual OrientationNot on filedocumented as of this encounter Miscellaneous Notes * Telephone Encounter - Coretta Cardenas LPN - 01/22/2025 9:43 AM EST I am patient of Dr. Thomas. I was just calling just because it is before the weekend and I just was wondering if I should look out for anything specific because I am 36 weeks and just having some just I guess I Do not know not issues, but maybe there is normal. I just was calling with some questions of it. Patient call returned and she states that the past couple days she has had some pretty severe pressure in pelvic area and back area. Patient states that she is also having Adalberto thayer and these have been ongoing and starting to pick up man a little patient advised to start timing and monitoring theseand if worsens to head over also watch for increase in discharge and water breaking. Patient advised if questions after our business hours reach out the [facility] and they are able to guide her also. PVU documented in this encounter Plan of Treatment DateTypeDepartmentCare Team (Latest Contact Info)Dsaxitsfziz68/12/2025 1:40 PM ESTRoutine [facility] [address] [place] [phone] Doc Thomas DO [address] [facility] [place] [address] documented as of this encounter Visit Diagnoses Not on filedocumented in this encounter Care Teams Team MemberRelationshipSpecialtyStart DateEnd Date Danny Schuler MD [address] [facility] [address] [place] [address] PCP - GeneralFamily Medicine07/24/22 Danny Schuler MD [address] [place] [address] PCP - Ziggy Richard06/16/20documented as of this encounter
--- OUTSIDE RECORDS SUMMARY | 2025-01-23 08:07 | XMS_ITS | Encounter Summary ---
Author Organization [facility] Address [address] [place] [address] Care Team Providers Care Proof Reader Name Role Phone Danny Payne MD Primary Care Provider [phone] Danny Payne MD Unavailable [phone] Encounter Details DateTypeDepartmentCare Team (Latest Contact Info)Kelqsltsuqa30/05/2025Clinisync Result Encounter [facility] External Department Unsolicited Sintia Thomas, DO [address] [facility] [place] [address] Social History Tobacco UseTypesPacks/DayYears UsedDateSmoking Tobacco: Some [...] relatives?Once a week12/11/2022How often do you attend mosque or yarsanism services?More than 4 times per year12/11/2022o you belong to any clubs or organizations such as mosque groups, unions, fraAppsFlyer or athletic groups, or school groups?No12/11/2022How often [...] food, housing, medical care, and heating?Somewhat hard 12/11/2022[facility] [place] of Occupational Health - Occupational Stress QuestionnaireAnswerDate RecordedDo you feel stress - tense, restless, nervous, or anxious, or unable to sleep at night because yourmind is troubled all the time - these days?Only a nmvkbp5812/11/2022Exercise Vital SignAnswerDate Recorded On average, how many [...] degree you have received?11th grade12/10/2022Estimated Date of GawililoOldicngwDau02/06/2025Based on last menstrual period of 05/16/2024Sex and Gender InformationValueDate RecordedSex Assigned at AyktaEsnsgm86/25/2023 10:10 AM EDTLegal DkqQvzswf84/15/2023 6:51 PM EDTGender JrgcdflaIelroh41/25/2023 10:10 AM EDTSexual OrientationNot on filedocumented as of this encounter Plan of Treatment DateTypeDepartmentCare Team (Latest Contact Info)Yhgcwbusnab28/12/2025 1:40 PM ESTRoutine [facility] [address] [facility] [place] [phone] Sintia Thomas DO [address] [facility] [address] [place], [place] [phone] documented as of this encounter Procedures Procedure NamePriorityDate/TimeAssociated DiagnosisCommentsUS OB BPP W NON-ZYSITA5701/20/2025 5:10 PM EST documented in this encounter Results * US OB BPP W NON-STRESS (01/20/2025 5:10 PM EST)Anatomical Region LateralityModalityOtherSpecimen (Source)Anatomical Location / Laterality Collection Method / VolumeCollection TimeReceived Time01/20/2025 5:10 PM EST Narrative 01/20/2025 5:13 PM EST [facility] ?[address] ? [place] [address] ? Ultrasound Report ? Signed ? Patient: LAETA CASTRO ?MR#: [id number] ?? : 2000 ?Acct:[id number] ?? Age/Sex: 24 / F ?ADM Date: 01/20/25 ?? Loc: [facility]O ? Attending Dr: Sintia Thomas D.O. ? Ordering Physician: Sintia Thomas D.O. ?? Date of Service: 01/20/25 ?? Procedure(s): US OB BPP w non-stress ?? Accession Number(s): [id number] ? cc: Sintia Thomas D.O.; DANNY PAYNE ? [facility] ? [address] ? [place] [address] ? Patient Name: ?? ALETA N RAKEL ? MRN: [facility]:[id number] ? date: 2000 ?Sex: F ?? Assigned Patient Location: [facility] ?? Current Patient Location: ? Accession/Order Number: [id number] ?? Exam Date: 01/20/2025 ??15:17 ?Report Date: [...] Dictation Location: RADIO-PC-20 ? Electronically authenticated by: [id number] ??Y ?? Date: 01/20/2025 ??17:10 ? Dictated By: ?Loi Ellington D.O. ? Signed By: ?11/05/25 1713 ? DD/ 1710 ? TD/TT: ? Senior Technologist: Procedure Note Radiology, Radiologist, MD - 11/05/2025 [place] [address] Ultrasound Report Signed Patient: ALETA CASTRO NMR#: [id number] : 2000Acct:[id number] Age/Sex: 24 / FADM Date: 01/20/25 Loc: [facility]O Attending Dr: Sintia Thomas D.O. Ordering Physician: Sintia Thomas D.O. Date of Service: 01/20/25 Procedure(s): US OB BPP w non-stress Accession Number(s): [id number] cc: Sintia Thomas D.O.; DANNY PAYNE The [place] [id number] Patient Name: ALETA CASTRO MRN: [id number] date: 2000 Sex: F Assigned [facility] Current Patient Location: Accession/Order Number: [id number] Exam Date: 01/20/2025 15:17 Report Date: 01/20/2025 [...] Ellington M.D. 01/20/2025 5:10 PM Dictation Location: [place] [address] Electronically authenticated by: [id number] Y Date: 7:10 Dictated By: Loi Ellington D.O. Signed By:01/20/251712 DD/ 09 TD/TT: Senior Technologist: Authorizing ProviderResult TypeResult StatusCorey William DOCLINISYNC IMAGINGFinal Result documented in this encounter Visit Diagnoses Not on filedocumented in this encounter Care Teams Team MemberRelationshipSpecialtyStart DateEnd Date Danny Payne MD [address] [place] [address] PCP - GeneralFamily Medicine07/24/22 Danny Payne MD [address] [place] [address] PCP - Ziggy Richard06/16/20documented as of this encounter
--- OUTSIDE RECORDS SUMMARY | 2025-01-23 08:08 | XMS_ITS | CCD ---
Author Organization [facility] CliniSytx Care Team Providers Care Armature Winder Name Role Phone BECERRIL, DAVID P Unavailable Unavailable BECERRIL, DAVID P Unavailable Unavailable BECERRIL, DAVID P Unavailable Unavailable BECERRIL, DAVID P Unavailable Unavailable BECERRIL, DAVID P Unavailable Unavailable BLANCA PABLO AM Unavailable Unavailable BLANCA PABLO AM Unavailable Unavailable SELF, REFERRED Unavailable Unavailable ROSALIE PAYNE Unavailable Unavailable Unavailable Primary Care Provider UnavailRosalie Muhammad MD Primary Care Provider [phone] DAVID DOMINGUEZ Attending Unavailable ARTIS YODER Attending [...] able Rosalie Payne MD Primary Care Provider [phone] Pocanaly, Myron Washburn Admitting Unavailable PocosMyron Referring [...] Primary Care Provider Rosalie Payne MD Unavailable [phone] LESA SINGH Attending Unavailable WILLIAMDOC YOUNGBLOOD Attending Unavailable PRETTY MCKEON Attending Unavailable DOC THOMAS Attending Unavailable ROSALIE PAYNE Attending Unavailable MYRON MARROQUIN Attending Unavailable PRETTY MCKEON Attending Unavailable LUNA STEEN Attending Unavailable DOC THOMAS Attending Unavailable LUNA STEEN Attending Unavailable DOC THOMAS Attending Unavailable PRETTY MCKEON Attending Unavailable Allergies Allergy ClassificationReported Allergen(s)Allergy TypeDate of OnsetReaction(s) FacilityLatex (1 source)LatexSubstance Gbcmfdy91-05-0882FwczRldbr HealthMacrolides (antibiotic) (1 source)AzithromycinDrug Ljwpwpm25-16-0622UefboEavax Health (20 sources)Azithromycin; Translations: [azithromycin]Drug Zcjrgvc20-08-6652 [facility] (11 sources)Latex; Translations: [Latex]Propensity to adverse reactions to drug 90-54-1672AyofNwnih Health (1 source)AzithromycinDrug Ywjjzco41-93-8090Czu [facility] Repository (1 source)natural latex rubberDrug allergy (disorder)[facility] Repository (2 sources)Banana Extract; Translations: [Banana]Drug AllergyVomiting (disorder) [facility] (20 sources)Midodrine; Translations: [midodrine]Drug Pgeuzwd06-37-8957[facility]piulobeD[facility] (20 sources)LatexAllergy to vfdtjsqfi79-38-3137QwxbCFTJ Healthcare (1 source)AzithromycinDrug Zrnsgdn33-80-4355[facility]rumlhuqzBet[facility] (1 source)LatexDrug allergy (disorder)72-55-8452YtxmhotkaBethesda North Hospital Repository Medications Current Medications MedicationDrug Class(es)DatesSig (Normalized)Sig (Original)[id number] 200 actuat albuterol 0.09 mg/actuat metered dose inhaler (2 sources)beta2-Adrenergic AgonistStart: 18-30-0349aevp 2 puff(s) by inhalation four times daily as neededAlbuterol Sulfate HFA 108 (90 Base) MCG/ACT 2 puffs Inhalation 4 times a day prn Aug, ActiveStart: 06-82-9386spvs 2 puff(s) by inhalation four times daily as neededAlbuterol Sulfate HFA 108 (90 Base) MCG/ACT 2 puffs Inhalation 4 times a day prn Aug, Not-Taking/PRN fluconazole 150 mg oral tablet (2 sources)Azole AntifungalStart: 12-09-2024 End: 85-83-2089xlsnksleael (Diflucan) 150 MG tablet Indications: Yeast infection Take 1 tablet (150 mg) by mouth 1(one) time for 1 dose Repeat in 7 days if symptoms persist. 2 tablet 12/09/2024 12/09/2024 Activefluticasone propionate 0.05 mg/actuat metered dose nasal spray (4 sources)CorticosteroidStart: 29-51-7916vvvbmuuczrq (Flonase) 50 MCG/ACT nasal sprayStart: 00-94-3801ziee 1 spray(s) nasal route once dailyFluticasone Propionate 50 MCG/ACT 1 spray in each nostril Nasally Once a day for 14 15 Mar, 2023 ActiveStart: 36-80-6991aywu 2 spray(s) nasal route once daily as needed Fluticasone Propionate 50 MCG/ACT 2 sprays Nasally Once a day for 14 day(s) Aug, Not-Taking/PRNStart: 09-52-0913wedc 2 spray(s) nasal route once daily Fluticasone Propionate 50 MCG/ACT 2 sprays Nasally Once a day for 14 day(s) Aug, Activeibuprofen 600 mg oral tablet (20 sources)Nonsteroidal Anti-inflammatory DrugStart: 52-67-8723nsii 1 tablet by mouth four times daily as needed for painibuprofen (ADVIL;MOTRIN) 600 MG tablet Take 1 tablet by mouth 4 times daily as needed for Pain 30 tablet 0 12/14/2020 Active End: 76-14-1851nycjmyqpt 200 MG tablet Take by mouth. 07/16/2024 Discontinued magnesium oxide 400 mg oral tablet (5 sources)Start: 07-16-2024 End: 61-21-6681jldd 1 tablet by mouth once dailymagnesium oxide (Mag-Ox) 400 MG tablet Indications: Cluster headache, not intractable, unspecified chronicity pattern Take 1 tablet (400 mg) by mouth Daily 30 tablet 6 07/16/2024 08/15/2024 Activeondansetron 4 mg oral tablet (20 sources)Serotonin-3 Receptor AntagonistStart: 00-39-0215uwuc 1 tablet by mouth every six hours as needed for nausea and nausea, then take 1 tablet by mouthevery six hours as needed for nausea and nauseaondansetron (Zofran) 4 MG tablet Indications: Nausea and vomiting in ([facility]) Take 1 tablet (4 mg) by mouth every 6 (six) hours if needed for nausea or vomiting for up to 30 doses Take 1 tablet by mouth every 6 hours as needed for nausea. 30 tablet 12/23/2024 ActiveStart: 10-05-2024 End: 49-12-3151bhkn 1 tablet by mouth every six hours for nauseaondansetron ODT (Zofran-ODT) 4 MG disintegrating tablet Indications: Nausea and vomiting during ([facility]) Take 1 tablet (4 mg) by mouth every 6 (six) hours if needed for nausea or vomiting 30 tablet 3 10/05/2024 11/04/2024 ActiveStart: 08-26-2024 End: 01-21-7332tklb 1 tablet by mouth every six hours for nauseaondansetron ODT (Zofran-ODT) 4 MG disintegrating tablet Indications: Nausea and vomiting during ([facility]) Take 1 tablet (4 mg) by mouth every 6 (six) hours if needed for nausea or vomiting 30 tablet 3 08/26/2024 09/30/2024 ActiveStart: 07-06-2024 End: 82-17-2227zypp 1 tablet by mouth every six hours for nauseaondansetron ODT (Zofran-ODT) 4 MG disintegrating tablet Indications: Nausea and vomiting during Take 1 tablet (4 mg) by mouth every 6 (six) hours if needed for nausea or vomiting 30 tablet 2 07/06/2024 08/05/2024 Activepenicillin v potassium 500 mg oral tablet (1 source)Start: 08-57-4726fhmn 1 tablet by mouth every eight hoursPenicillin V Potassium 500 MG 1 tablet Orally tid for 10 day(s) 14 Apr, 2021 Active polysaccharide iron complex 391 mg oral capsule (5 sources)Start: 11-05-2024 End: 40-83-7018sgzf 1 capsule by mouth once dailyiron polysaccharides (ProFe) 391.3 (180 Fe) MG capsule Indications: Low hemoglobin Take 1 capsule (391.3 mg) by mouth Daily 30 capsule 3 11/05/2024 12/05/2024 ActivetiZANidine 4 mg oral tablet (2 sources)Central alpha-2 Adrenergic AgonistStart: 97-09-9648yahc 1 tablet by mouth every eight hours as needed for paintiZANidine (ZANAFLEX) 4 MG tablet Take 1 tablet by mouth every 8 hours as needed (pain and muscle tension/cramps) 10 tablet 0 12/14/2020 Active Completed/Discontinued Medications MedicationDrug Class(es)DatesSig (Normalized)Sig (Original)acetaminophen 325 mg oral tablet (1 source)Start: 09-19-2020 End: 37-71-1024sjyathhjiazlh (TYLENOL) tablet 650 mgCitalopram (7 sources)Serotonin Reuptake InhibitorCitalopram Hydrobromide Not-Taking/PRN take 1 tablet by mouth once dailycitalopram (CELEXA) 20 MG tablet Take 20 mg by mouth daily 0 ActiveCitalopram Hydrobromide Activeclotrimazole 10 mg oral lozenge (3 sources)Azole AntifungalStart: 96-76-3381Yxlrjwbehcsz 10 MG 1 wenceslao Mouth/Throat Three times a day for 7 day(s) Apr, Not-Taking/PRN medroxyPROGESTERone (4 sources)ProgestinDepo-Provera Not-Taking/PRNDepo-Provera Activemetoclopramide 10 mg oral tablet (12 sources)Dopamine-2 Receptor AntagonistStart: 07-16-2024 End: 53-41-6440wwxnpcsnzzlucs (Reglan) 10 MG tablet Indications: Nausea/vomiting in [...] tablet (2 sources)Nonsteroidal Anti-inflammatory DrugStart: 05-24-2021 End: 84-67-2232nvuscois sodium (ANAPROX) tablet 550 mgStart: 68-34-1575fqea 1 tablet by mouth twice daily at mealtimenaproxen (NAPROSYN) 500 MG tablet Take 1 tablet by mouth 2 times daily (with meals) 20 tablet 1 05/24/2021 Active pantoprazole 40 mg delayed release oral tablet (17 sources)Proton Pump InhibitorStart: 02-17-2024 End: 64-52-6746rjzp 1 tablet by mouth before mealtimepantoprazole (ProtoNix) 40 MG EC tablet Take 40 mg by mouth in the morning. Take before meals. 02/17/2024 09/30/2024 DiscontinuedpredniSONE 20 mg oral tablet (3 sources)Start: 30-31-0158huzd 1 tablet by mouth every twelve hourspredniSONE 20 MG 1 tablet Orally 2 times a day for 5 day(s) Aug, Not-Taking/PRN Start: 42-62-3367bpei 1 tablet by mouth every twelve hourspredniSONE 20 MG 1 tablet Orally bid for 5 day(s) Apr, Active Problems Active Problems Problem ClassificationProblemDateDocumented DateEpisodic/ChronicAbdominal pain (11 sources)Pelvic and perineal pain; Translations: [Right lower quadrant pain] Onset: 50-50-2510JvcogarbMgtljnc dysrhythmias (20 sources)Postural orthostatic tachycardia syndrome ; Translations: [Postural orthostatic tachycardia syndrome (POTS)]Onset: 043274-64-8650Aienlni Cardiac dysrhythmias (4 sources)Palpitations; Translations: [Palpitations]14-36-8543Olswjeqt Coagulation and hemorrhagic disorders (1 source)Qualitative platelet defects; 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]Onset: 19-14-1636BntzogdKzecezutte disorders (4 sources)Gastroesophageal reflux disease; Translations: [Gastro-esophageal reflux disease without esophagitis]05-43-5289KmkhsfzPzoclzfz; including migraine (1 source)Cluster headache; Translations: [Cluster headache syndrome, unspecified, not intractable]81-60-9587NiiyvlpNihubxvmqtilr and screening for infectious disease (4 sources)Contact with and (suspected) exposure to other viral communicable diseases; Translations: [Exposureto sexually transmissible disorder]Onset: 04-07-2021 Resolved: 23-22-3113AfsvphzoXmhkplz and fatigue (20 sources)Fatigue; Translations: [Chronic fatigue, unspecified]Onset: 765498-68-1596KqfpumhKolqkkgto disorders (20 sources)Disorder of menstruation; Translations: [Irregular menstruation, unspecified]Onset: 161228-64-9226HiqavtrFohjovm (3 sources)Candidal stomatitis; Translations: [Mycosis]Onset: 05-11-2021 Resolved: 73-71-1719OywywbhhYcnnno and vomiting (4 sources)Nausea; Translations: [Nausea]64-78-3552PmraapneZxunf bone disease and musculoskeletal deformities (20 sources)Patricia Schlatter disease; 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]Onset: 317227-29-7918OrpnzpsMujjm circulatory disease (1 source)Postural orthostatic tachycardia eoxaptci62-24-5168XrattwfiZwaoc complications of (1 source)Vomiting of , unspecified; Translations: [Unspecified vomiting of , unspecified as to episode of care or not applicable] 98-95-6105AfuezdvvWbgba gastrointestinal disorders (2 sources)Diarrhea; Translations: [Diarrhea, unspecified]49-77-9851Dsshwlan Other gastrointestinal disorders (2 sources)Diarrhea, unspecified; Translations: [Diarrhea]00-62-5373Emqbpiob Other gastrointestinal disorders (1 source)Dysphagia; Translations: [Dysphagia, unspecified]74-83-2707Dlzqpntx Other gastrointestinal disorders (1 source)Dysphagia, unspecified; Translations: [Dysphagia, unspecified] 77-63-2307SwvdbhaqOwktd injuries and conditions due to external causes (1 source)Closed injury of head; Translations: [Unspecified injury of head, initial encounter]EpisodicOther injuries and conditions due to external causes (1 source)Injury of coccyx; Translations: [Unspecified injury of lower back, initial encounter]EpisodicOther injuries and conditions due to external causes (2 sources)Injury of left knee; Translations: [Unspecified injury of left lower leg, initial encounter]84-61-1692BasfnkmgIttts nutritional; endocrine; and metabolic disorders (20 sources)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 imbalance; Translations: [Other obesity due to excess calories]Onset: 091685-01-6838OsxwsaoUjgnu nutritional; endocrine; and metabolic disorders (1 source)H/O: zmthpasxucqbes34-00-3645NcptbqudOjdsu and delivery including normal (20 sources); Translations: [Encounter for supervision of normal , unspecified, unspecified trimester]86-43-4061RjbgncbgHjxcg screening for suspected conditions (not mental disorders or infectious disease) (8 sources)Encounter for screening for malignant neoplasm of cervix; Translations: [Patient encounter status]Onset: 04-13-6112IgslsckmLirpc upper respiratory infections (9 sources)Streptococcal sore throat; Translations: [Strep throat]Onset: 05-01-2021 Resolved: 72-80-5788BhwimwovVzoixnob codes; unclassified (2 sources)Gestation period, 11 weeks; Translations: [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 ]82-28-2382WlqtugovSdqhrrok codes; unclassified (2 sources)Gestation period, 15 weeks; Translations: [15 weeks gestation of ]10-75-6119ZjkganwsDkwjjohr codes; unclassified (2 sources)Gestation period, 19 weeks; Translations: [19 weeks gestation of ]10-19-2488BnvfjicsYjtlakaa codes; unclassified (2 sources)Gestation period, 23 weeks; Translations: [23 weeks gestation of ]52-30-8580ZjszhkrwHkvbncqj codes; unclassified (2 sources)Gestation period, 27 weeks; Translations: [27 weeks gestation of ]33-49-2874WtbpqspxCebpkrjl codes; unclassified (2 sources)Gestation period, 29 weeks; Translations: [29 weeks gestation of ]97-90-7857CfkvljkzZlznkpdn codes; unclassified (2 sources)Gestation period, 31 weeks; Translations: [31 weeks gestation of ]78-60-2090YgiutuevTfvvftkm codes; unclassified (2 sources)Gestation period, 33 weeks; Translations: [33 weeks gestation of ]76-04-0970VudocmlhTymzmrvw codes; unclassified (2 sources)Gestation period, 35 weeks; Translations: [35 weeks gestation of ]82-73-4447JlezonjtEvyayapdo-related disorders (20 sources)Cigarette smoker ; Translations: [Nicotine dependence, cigarettes, uncomplicated]Onset: 130903-79-0357IywihstInbjthmlown injury; contusion (1 source)Contusion of left knee; Translations: [Contusion of left knee, initial encounter]EpisodicSyncope (2 sources)Syncope; Translations: [Syncope]Onset: 72-45-1026GqsgnzuuUjfhiia disorders (20 sources)Evan thyroiditis; Translations: [Autoimmune thyroiditis]Onset: 879967-19-5460CfidlnuCkhdhvuirlce (2 sources)Unknown / UNK(Unknown)Onset: 35-85-8939Fixmwzaqhjqz (2 sources)New Patient; Translations: [New Patient]Onset: 57-63-5670Wlauntwbzrow (2 sources)POTSOnset: 11-27-2024 Past or Other Problems Problem ClassificationProblemDateDocumented DateEpisodic/ChronicChronic obstructive pulmonary disease and bronchiectasis (1 source)Bronchitis, not specified as acute or chronicOnset: 08-21-2021 Resolved: 11-52-8522GwdrsjcmEmonkddhy (5 sources)Influenza; Translations: [Influenza A]Other circulatory disease (4 sources)Orthostatic hypotension; Translations: [ORTHOSTATIC HYPOTENSION] Onset: 26-99-1854YsfvmurrGuuct circulatory disease (20 sources)Low blood pressure; Translations: [Hypotension, unspecified]Onset: 856875-79-3528GkcucwjcKoqqn non-traumatic joint disorders (20 sources)Pain in left knee; Translations: [Pain in joint, lower leg]Onset: 636169-54-9988WfwwhdnfEkzkq nutritional; endocrine; and metabolic disorders (20 sources)Body mass index 25-29 - overweight; Translations: [Overweight]Onset: 12-10-2022 Resolved: 670643-44-8158FocjnkycHqgtllr cyst (20 sources)Cyst of ovary; Translations: [Unspecified ovarian cyst, unspecified side]Onset: 108410-23-1713Yaaducrm Results Test NameValueInterpretationReference RangeFacilityUS OB BPP W NON-STRESS on 30[place]64[place]24[place] [address] Ultrasound Report Signed Patient: ALETA CASTRO MR#: [id number] : 2000 Acct:[id number] Age/Sex: 24 / F ADM Date: 01/20/25 Loc: FBCO Attending Dr: Doc Thomas D.O. Ordering Physician: Doc Thomas D.O. Date of Service: 01/20/25 Procedure(s): US OB BPP w non-stress Accession Number(s): [id number] cc: Doc Thomas D.O.; ROSALIE PAYNE [place] [address] Patient Name: ALETA CASTRO MRN: [id number] date: 2000 Sex: F Assigned Patient Location: [facility] Current Patient Location: Accession/Order Number: [id number] Exam Date: 01/20/2025 15:17 Report Date: 01/20/2025 17:10 At the request of: DOC THOMAS DO Procedure: US OB BPP w non-stress Ultrasound biophysical profile HISTORY: Evan's thyroiditis Adequate breathing movement, gross body movement, tone and amniotic fluid volume for total score of 8 out of 8. The amniotic fluid index is 16.6cm within normal limits. The heart rate 155 bpm. US/US OB BPP w non-stress IMPRESSION: Adequate ultrasound biophysical profile Impression dictated by: Loi Ellington M.D. 01/20/2025 5:10 PM [facility]ictation [facility] Electronically authenticated by: [id number] Y Date: 01/20/2025 17:10 Dictated By: Loi Ellington D.O. Signed By: 01/20/251712 DD/ 09 TD/TT: Calciner Operator Helper:Selena Merchant, - 01/20/2025 [place] [address] Ultrasound Report Signed Patient: ALETA CASTRO MR#: [id number] : 2000 Acct:[id number] Age/Sex: 24 / F ADM Date: 01/20/25 Loc: FBCO Attending Dr: Doc Thomas D.O. Ordering Physician: Doc Thomas D.O. Date of Service: 01/20/25 Procedure(s): US OB BPP w non-stress Accession Number(s): [id number] cc: Doc Thomas D.O.; ROSALIE PAYNE The [place] [address] Patient Name: ALETA CASTRO MRN: [id number] date: 2000 Sex: F Assigned Patient Location: [facility] Current Patient Location: Accession/Order Number: [id number] Exam Date: 01/20/2025 15:17 Report Date: 01/20/2025 17:10 At the request of: DOC THOMAS DO Procedure: US OB BPP w non-stress Ultrasound biophysical profile HISTORY: Evan's thyroiditis Adequate breathing movement, gross body movement, tone and amniotic fluid volume for total score of 8 out of 8. The amniotic fluid index is 16.6cm within normal limits. The heart rate 155 bpm. US/US OB BPP w non-stress IMPRESSION: Adequate ultrasound biophysical profile Impression dictated by: Loi Ellington M.D. 01/20/2025 5:10 PM Dictation Location: [place] [address] Electronically authenticated by: [id number] Y Date: 01/20/2025 17:10 Dictated By: Loi Ellington D.O. Signed By: 01/20/251712 DD/ 09 TD/TT: Calciner Operator Helper: KYE HealthcareRadiology Study observation (narrative)NOMS HealthcareUS OB BPP W NON-STRESSOrdered By: Radiologist Radiology on 15-17-4684[facility] Work Phone: Urinalysis macro (dipstick) panel (U)on 01-20-2025 Bilirubin, UANegativeNegative - 4(70) +++ mg/dLNOMS HealthcareBlood, UANegative Negative - 50 Randall/mcLNOMS HealthcareClarity, UAClearNOMS HealthcareColor, UA YellowNOMS HealthcareGlucose, UATraceNegative - 2000(110) ++++ mg/dLNOMS HealthcareInterpretation and review of laboratory resultsAbnormalNOFL Healthcare Ketones, UANegativeNegative - 160(16) ++++ mg/dLNOMS HealthcareLeukocytes, UA NegativeNegative - 500+++ Rick/mcLNOMS HealthcareNitrite, UANegativeNegative - PositiveNOMS HealthcarepH, UA5.55 - 9NOMS HealthcareProtein, UA1+Negative - 2000(20) ++++ mg/dLNOFL HealthcareSpec Grav, UA1.0301 - 1.03NOMS Healthcare Urobilinogen, UA1.00.2 - 12 mg/dLNOMS HealthcareNOMS HealthcareUS OB BPP W NON-STRESSon 11-47-7477[place], [place] [address] Ultrasound Report Signed Patient: ALETA CASTRO MR#: [id number] : 2000 Acct:[id number] Age/Sex: 24 / F ADM Date: 01/11/25 Loc: US Attending Dr: Doc Thomas D.O. Ordering Physician: Doc Thomas D.O. Date of Service: 01/11/25 Procedure(s): US OB BPP w non-stress Accession Number(s): [id number] cc: Doc Thomas D.O.; ROSALIE PAYNE [address] [address] Patient Name: ALETA CASTRO MRN: [id number] date: 2000 Sex: F Assigned Patient Location: [facility] Current Patient Location: Accession/Order Number: [id number] Exam Date: 01/11/2025 15:03 Report Date: 01/11/2025 [...] 8 score biophysical profile. Impression dictated by: Deshuan Aguilar M.D. 01/11/2025 9:15 PM Dictation Location: [place] [address] Electronically authenticated by: [id number] Y Date: 01/11/2025 21:15 Dictated By: Deshaun Aguilar M.D. Signed By: 01/11/252117 DD/ 14 TD/TT: Calciner Operator Helper:TBHRadiology, Radiologist, - 01/11/2025 [place] [address] Ultrasound Report Signed Patient: ALETA CASTRO MR#: [id number] : 2000 Acct:[id number] Age/Sex: 24 / F ADM Date: 01/11/25 Loc: US Attending Dr: Doc Thomas D.O. Ordering Physician: Doc Thomas D.O. Date of Service: 01/11/25 Procedure(s): US OB BPP w non-stress Accession Number(s): [id number] cc: Doc Thomas D.O.; ROSALIE PAYNE The [address] [address] Patient Name: ALETA CASTRO MRN: [id number] date: 2000 Sex: F Assigned Patient Location: [facility] Current Patient Location: Accession/Order Number: [id number] Exam Date: 01/11/2025 15:03 Report Date: 01/11/2025 [...] Aguilar M.D. 01/11/2025 9:15 PM Dictation Location: [place] [address] Electronically authenticated by: [id number] Y Date: 01/11/2025 21:15 Dictated By: Deshaun Aguilar M.D. Signed By: 01/11/252117 DD/ 14 TD/TT: Calciner Operator Helper: KYE HealthcareRadiology Study observation (narrative)NOMS HealthcareUS OB BPP W NON-STRESSOrdered By: Radiologist Radiology on 69-41-0680[facility] Work Phone: Urinalysis macro (dipstick) panel (U)on 01-05-2025 Bilirubin, UANegativeNegative - 4(70) +++ mg/dLNOMS HealthcareBlood, UANegative Negative - 50 Randall/mcLNOMS HealthcareClarity, UAClearNOMS HealthcareColor, UA YellowNOMS HealthcareGlucose, UA3+Negative - 2000(110) ++++ mg/dLNOMS Healthcare Interpretation and review of laboratory resultsAbnormalNOMS HealthcareKetones, UAPositiveNegative - 160(16) ++++ mg/dLNOMS HealthcareLeukocytes, UATrace Negative - 500+++ Rick/mcLNOMS HealthcareNitrite, UANegativeNegative - Positive NOMS HealthcarepH, UA6.55 - 9NOMS HealthcareProtein, UATraceNegative - 2000(20) ++++ mg/dLNOMS HealthcareSpec Grav, UA1.0101 - 1.03NOMS HealthcareUrobilinogen, UA2.00.2 - 12 mg/dLNOMS HealthcareNOMS HealthcareUS OB BPP W NON-STRESSon 34-16-2768[place] [address] Ultrasound Report Signed Patient: ALETA CASTRO MR#: [id number] : 2000 Acct:[id number] Age/Sex: 24 / F ADM Date: 01/02/25 Loc: US Attending Dr: Doc Thomas D.O. Ordering Physician: Doc Thomas D.O. Date of Service: 01/02/25 Procedure(s): US OB BPP w non-stress Accession Number(s): [id number] cc: Doc Thomas D.O.; ROSALIE PAYNE [place] [address] Patient Name: ALETA CASTRO MRN: [id number] date: 2000 Sex: F Assigned Patient Location: [facility] Current Patient Location: Accession/Order Number: [id number] Exam Date: 01/02/2025 09:00 Report Date: 01/02/2025 [...] Dalton M.D. 01/02/2025 3:02 PM Dictation Location: [place] [address] Electronically authenticated by: [id number] Y Date: 01/02/2025 15:02 Dictated By: Emmanuel Dalton M.D. Signed By: 01/02/25 1505 DD/ 1502 TD/TT: Calciner Operator Helper:NINAHRadiology, Radiologist, - 01/02/2025 [place] [address] Ultrasound Report Signed Patient: ALETA CASTRO MR#: [id number] : 2000 Acct:[id number] Age/Sex: 24 / F ADM Date: 01/02/25 Loc: US Attending Dr: Doc Thomas D.O. Ordering Physician: Doc Thomas D.O. Date of Service: 01/02/25 Procedure(s): US OB BPP w non-stress Accession Number(s): [id number] cc: Doc Thomas D.O.; ROSALIE PAYNE [place] [address] Patient Name: ALETA CASTRO MRN: [id number] date: 2000 Sex: F Assigned Patient Location: [facility] Current Patient Location: Accession/Order Number: [id number] Exam Date: 01/02/2025 09:00 Report Date: 01/02/2025 [...] Dalton M.D. 01/02/2025 3:02 PM Dictation Location: [place] [address] Electronically authenticated by: [id number] Y Date: 01/02/2025 15:02 Dictated By: Emmanuel Dalton M.D. Signed By: 01/02/25 1505 DD/ 1502 TD/TT: Calciner Operator Helper: KYE SoaresRadiology Study observation (narrative)NOMS HealthcareUS OB BPP W NON-STRESSOrdered By: Radiologist Radiology on 43-08-8611ZKSX [employer] Work Phone: aLL THYROID STIM HORMONEon 72-16-0210Ujnyvlvsebadwi and review of laboratory resultsAbnormalNOPhelps Health Qn0.131 m[IU]/LLow NOM HealthcareCLINISYNCNOMS HealthcareUS OB BPP W NON-STRESSon 12-26-2024 [place] [address] Ultrasound Report Signed Patient: ALETA CASTRO MR#: [id number] : 2000 Acct:[id number] Age/Sex: 24 / F ADM Date: 12/26/24 Loc: US Attending Dr: Doc Thomas D.O. Ordering Physician: Doc Thomas D.O. Date of Service: 12/26/24 Procedure(s): US OB BPP w non-stress Accession Number(s): [id number] cc: Doc Thomas D.O.; ROSALIE PAYNE [place] [id number] Patient Name: ALETA CATSRO MRN: [id number] date: 2000 Sex: F Assigned Patient Location: Current Patient Location: Accession/Order Number: [id number] Exam Date: 12/26/2024 09:00 Report Date: 12/26/2024 [...] Aguilar M.D. 12/26/2024 11:19 AM Dictation Location: [place] [address] Electronically authenticated by: [id number] Y Date: 12/26/2024 11:19 Dictated By: Deshaun Aguilar M.D. Signed By: 12/26/241121 DD/ 18 TD/TT: Calciner Operator Helper:MARTINEadiolSelena aragon, - 12/26/2024 [place] [address] Ultrasound Report Signed Patient: ALETA CASTRO MR#: [id number] : 2000 Acct:[id number] Age/Sex: 24 / F ADM Date: 12/26/24 Loc: US Attending Dr: Doc Thomas D.O. Ordering Physician: Doc Thomas D.O. Date of Service: 12/26/24 Procedure(s): US OB BPP w non-stress Accession Number(s): [id number] cc: Doc Thomas D.O.; ROSALIE PAYNE [place] [address] Patient Name: ALETA CASTRO MRN: [id number] date: 2000 Sex: F Assigned Patient Location: US Current Patient Location: Accession/Order Number: [id number] Exam Date: 12/26/2024 09:00 Report Date: 12/26/2024 [...] Aguilar M.D. 12/26/2024 11:19 AM Dictation Location: [place] [address] Electronically authenticated by: [id number] Y Date: 12/26/2024 11:19 Dictated By: Deshaun Aguilar M.D. Signed By: 12/26/241121 DD/ 1119 TD/TT: Calciner Operator Helper: KYE HealthcareRadiology Study observation (narrative)NOMS HealthcareUS OB BPP W NON-STRESSOrdered By: Radiologist Radiology on 45-01-2374LRBH [facility] Work Phone: US OB GROWTHon [phone] [address] Ultrasound Report Signed Patient: ALETA CASTRO MR#: [id number] : 2000 Acct:[id number] Age/Sex: 24 / F ADM Date: 12/26/24 Loc: US Attending Dr: Doc Thomas D.O. Ordering Physician: Doc Thomas D.O. Date of Service: 12/26/24 Procedure(s): US OB growth Accession Number(s): [id number] cc: Doc Thomas D.O.; ROSALIE PAYNE [address] [address] Patient Name: ALETA CASTRO MRN: [id number] date: 2000 Sex: F Assigned Patient Location: US Current Patient Location: Accession/Order Number: [id number] Exam Date: 12/26/2024 09:00 Report Date: 12/26/2024 11:31 At the request of: DOC THOMAS DO Procedure: US OB growth Obstetric ultrasound for growth INDICATION: Evan's disease FINDINGS: Single live anterior cephalic presentation longitudinal lie. Amniotic fluid index 12.4 cm between the gestational age fifth and 95th percentile. Largest pocket of fluid 5.1 cm. heart rate 1 52 bpm. motion documented by the balloon dipper.. Estimated weight 2093 g 71.4%. Gestation age 32 weeks and 0 days. Biparietal diameter 7.93 m. Head circumference 30.7 cm. Otherwise the 10.6 cm. Abdominal circumference 28.9 cm. Femur length 6.4 cm. US/US OB growth IMPRESSION: Single live intrauterine of approximately 30 weeks Impression dictated by: Deshaun Aguilar M.D. 12/26/2024 11:31 AM Dictation Location: [place] [address] Electronically authenticated by: [id number] Y Date: 12/26/2024 11:31 Dictated By: Deshaun Aguilar M.D. Signed By: 12/26/24 1133 DD/ 1131 TD/TT: Calciner Operator Helper:MARTINEadiologkehinde, Radiologist, - 12/26/2024 [place] [address] Ultrasound Report Signed Patient: ALETA CASTRO MR#: [id number] : 2000 Acct:[id number] Age/Sex: 24 / F ADM Date: 12/26/24 Loc: US Attending Dr: Doc Thomas D.O. Ordering Physician: Doc Thomas D.O. Date of Service: 12/26/24 Procedure(s): US OB growth Accession Number(s): [id number] cc: Doc Thomas D.O.; ROSALIE PAYNE [place] [address] Patient Name: ALETA CASTRO MRN: [id number] date: 2000 Sex: F Assigned Patient Location: Current Patient Location: Accession/Order Number: [id number] Exam Date: 12/26/2024 09:00 Report Date: 12/26/2024 11:31 At the request of: DOC THOMAS DO Procedure: US OB growth Obstetric ultrasound for growth INDICATION: Evan's disease FINDINGS: Single live anterior cephalic presentation longitudinal lie. Amniotic fluid index 12.4 cm between the gestational age fifth and 95th percentile. Largest pocket of fluid 5.1 cm. heart rate 1 52 bpm. motion documented by the balloon dipper.. Estimated weight 2093 g 71.4%. Gestation age 32 weeks and 0 days. Biparietal diameter 7.93 m. Head circumference 30.7 cm. Otherwise the 10.6 cm. Abdominal circumference 28.9 cm. Femur length 6.4 cm. US/US OB growth IMPRESSION: Single live intrauterine of approximately 30 weeks Impression dictated by: Deshaun Aguilar M.D. 12/26/2024 11:31 AM Dictation Location: [place] [address] Electronically authenticated by: [id number] Y Date: 12/26/2024 11:31 Dictated By: Deshaun Aguilar M.D. Signed By: 12/26/24 1133 DD/ 1131 TD/TT: Calciner Operator Helper: KYE HealthcareRadiology Study observation (narrative)[facility] HealthcareUS OB GROWTHOrdered By: Radiologist Radiology on 02-47-6653XFMN [facility] Work Phone: Urinalysis macro (dipstick) panel [...] mg/dLNOMS HealthcareNOMS HealthcareUrinalysis macro (dipstick) panel (U)on 00-50-2807Ndrzwveog, UANegativeNegative - 4(70) +++ mg/dLNOMS HealthcareBlood, UANegativeNegative [...] UA0.20.2 - 12 mg/dLNOMS HealthcareNOMS HealthcareOffice Visiton 62-45-4483Ezxrny-up visit [id number] Aleta Castro 2000 F Date Provider Department Center 11/27/2024 [id number]-ATWNQLLESA SINGH [facility] Family History Family Status - Relation Status Age at Mother Alive Father Alive Level of Service:66254 [place] OFFICE/OUTPATIENT NEW LOW MDM 30 MINUTES Reason for Visit and Comments: New Patient [632] - New patient here today to establish care with cardiology Syncope [506] POTS [Other] Positive tilt table [Other] 6 months [Other]NormalUnOhioHealth Nelsonville Health CenterUrinalysis macro (dipstick) panel (U)on 68-21-5890Xkwyinfmo, UAPositiveNegative - 4(70) +++ mg/dLNOMS HealthcareComment on [...] 12 mg/dLNOMS HealthcareNOMS HealthcareCA ECHO DOPPLER COMPLETEon 74-66-6957ErqR[place] [address] Cardiology Report Signed Patient: ALETA CASTRO MR#: [id number] : 2000 Acct:[id number] Age/Sex: 24 / F ADM Date: 11/12/24 Loc: CARD Attending Dr: Luna Steen Ordering Physician: Luna Steen Date of Service: 11/12/24 Procedure(s): CA echo doppler complete Accession Number(s): [id number] cc: Luna Steen; ROSALIE PAYNE Patient Name: ALETA CASTRO MR#: [id number] : 2000 Exam Date: 11/12/2024 Ordering Doctor: [facility] PROCEDURE: CA ECHO DOPPLER [...] content not included)...TBHRadiology, Radiologist, - 11/24/2024 [facility] [place] [id number] Cardiology Report Signed Patient: ALETA CASTRO MR#: [id number] : 2000 Acct:[id number] Age/Sex: 24 / F ADM Date: 11/12/24 Loc: CARD Attending Dr: Luna Steen Ordering Physician: Luna Steen Date of Service: 11/12/24 Procedure(s): CA echo doppler complete Accession Number(s): [id number] cc: Luna Steen; ROSALIE PAYNE Patient Name: ALETA CASTRO MR#: [id number] : 2000 Exam Date: 11/12/2024 Ordering Doctor: LUNA STEEN [facility] ECHOCARD[facility] REPORT PROCEDURE: CA ECHO DOPPLER [...] Signed By: 11/24/24 1640 DD/ 1639 TD/TT: Calciner Operator Helper: KYE HealthcareRadiology Study observation (narrative)KYE HealthcareCA ECHO DOPPLER COMPLETEOrdered By: Radiologist Radiology on 79-32-2511VNZF Healthcare Work Phone: ecg 12-LEADon [phone] [address] Electrocardiograph Report Signed Patient: ALETA CASTRO MR#: [id number] : 2000 Acct:[id number] Age/Sex: 24 / F ADM Date: 11/12/24 Loc: CARD Attending Dr: Luna Steen Ordering Physician: Luna Steen Date of Service: 11/12/24 Procedure(s): ECG 12 lead Accession Number(s): [id number] cc: [facility] Test Date: 2024-11-12 Pat Name: ALETA CASTRO Department: Room: - Gender: Female Director Patient: : 2000 Requested By: LUNA STEEN Order Number: [id number] Reading MD: Lesa Singh Measurements Intervals [place]ir Rate: 79 P: 42 [place]: 158 QRS: 81 QRSD: 90 T: 41 QT: 353 QTc: 405 Interpretive Statements SINUS RHYTHM Normal EKG No previous ECG available for comparison Electronically Signed On 11-13-2024 13:34:21 EDT by Lesa Singh Dictated By: Lesa Singh M.D. Signed By: 11/13/24 1334 11/13/24 1334 DD/ 1206 TD/TT: Calciner Operator Helper:Selena Merchant MD - 11/13/2024 [place] [address] Electrocardiograph Report Signed Patient: ALETA CASTRO MR#: [id number] : 2000 Acct:[id number] Age/Sex: 24 / F ADM Date: 11/12/24 Loc: CARD Attending Dr: Luna Steen Ordering Physician: Luna Steen Date of Service: 11/12/24 Procedure(s): ECG 12 lead Accession Number(s): [id number] cc: [facility] Test Date: 2024-11-12 Pat Name: ALETA CASTRO Department: Room: - Gender: Female Director Patient: : 2000 Requested By: LUNA STEEN Order Number: [id number] Reading MD: Lesa Singh Measurements Intervals Weir Rate: 79 P: 42 [place]: 158 QRS: 81 QRSD: 90 T: 41 QT: 353 QTc: 405 Interpretive Statements SINUS RHYTHM Normal EKG No previous ECG available for comparison Electronically Signed On 11-13-2024 13:34:21 EDT by Lesa Singh Dictated By: Lesa Singh M.D. Signed By: 11/13/24 1334 11/13/24 1334 DD/ 1206 TD/TT: Calciner Operator Helper: KYE Canales 12-LEADOrdered By: Radiologist Radiology on 34-15-1394YUKN Healthcare Work Phone: ECG 12-LEADon 25-36-7108Adlewzkht Study observation (narrative)NOMS HealthcareALL CBC WITH AUTO DIFFon 77-53-0273NCTCGGBEM ABSOLUTE VJAE3ZZOF HealthcareBasophils/100 WBC (Bld)0.2 %0.2 - 2.0 %[facility] Eosinophils/100 WBC (Bld)0.5 %Low0.9 - 7.0 %NOMS HealthcareErythrocyte distribution width (RBC) [Ratio]12.7 %11.0 - 15.0 %NOMS HealthcareHematocrit (Bld) [Volume fraction]31.2 %Low36.0 - 48.0 %NOMS HealthcareHemoglobin (Bld) [Mass/Vol]10.8 g/dLLow12.0 - 16.0 g/dLNOFL HealthcareIMMATURE GRANULOCYTES ABS AUTO0.01NOMS HealthcareImmature granulocytes/100 WBC (Bld)0.2 %0.0 - 0.5 %[facility] HealthcareInterpretation and review of laboratory resultsAbnormalNOBates County Memorial Hospital LYMPHOCYTES ABSOLUTE EFJW7ZotNNYS HealthcareLymphocytes/100 WBC (Bld)15 %Low20.5 - 60.0 %[facility] JoplinH (RBC) [Entitic mass]32.3 pg26.7 - 34.0 pgNOJefferson Memorial HospitalHC (RBC) [Mass/Vol]34.6 g/dL29.9 - 35.2 g/dLMercy Hospital JoplinV (RBC) [Entitic vol]93.4 fL81.0 - 99.0 fLNOFL HealthcareMONOCYTES ABSOLUTE AUTO0.5NOMS HealthcareMonocytes/100 WBC (Bld)7.7 %1.7 - 12.0 %[facility] HealthcareNEUTROPHILS ABSOLUTE LNCD7ORYP HealthcareNeutrophils/100 WBC (Bld)76.4 %High43.0 - 75.0 % [facility] HospitalPlatelet mean volume (Bld) [Entitic vol]9.7 fL9.5 - 13.5 fLNOMS HealthcareTBH EO #0NOMS HealthcareTBH OXF589OFSH Peoples HospitalTB RBC3.34LowNOMS Peoples HospitalTB WBC6.6NOMS HealthcareCLINISYNCNOMS HealthcareIGP,APTIMA HPV,AGE GDLNon 80-19-6073BIJ GDLN ACOG TESTINGNote.[facility] HealthcareComment on above:TESTS RESULT FLAG UNITS REF RANGE LAB Clinician Provided Cytology Information Source.............Endocervix No. of containers..01 ThinPrep Vial Age Algo ACOG Yaa... -15 04 FLAG LEGEND: L-Low Normal,H-High Normal,LL-Alert Low,HH-Alert High <-Panic Low,>-Panic High,A-Abnormal,AA-Critical Abnormal Performed at: 01 =G [facility] [address] [place] [address] Ludy Hector MD, IGP, RFX APTIMA HPV ASCUNote.[facility] HealthcareComment on above:TESTS RESULT FLAG UNITS REF RANGE LAB DIAGNOSIS: 02 NEGATIVE FOR INTRAEPITHELIAL LESION OR MALIGNANCY. THIS SPECIMEN WAS RESCREENED PART OF OUR HORSERADISH MAKER PROGRAM. Specimen adequacy: 02 Satisfactory for evaluation. No endocervical component is identified. Performed by: Saravanan Mello, Reference Librarian (ASC) QC reviewed by: 02 Polina Simons, Reference Librarian . 02 Note: Note 02 The Pap [...] <-Panic Low,>-Panic High,A-Abnormal,AA-Critical Abnormal Performed at: [address] [address] Ludy Hector MD, Performed at: =[facility] [id number] Can Closing Machine Tender: Ludy Hector MD, Phone: [phone] Performed at: [address] [id number] Can Closing Machine Tender: Ludy Hector MD, Phone: [phone] BRUSH-SPATULA ENDOCERVIX CLINISYNCNOMS HealthcareRECURRENT VAGINITIS (HTRX)on 31-76-0386GWKMPLOHF VAGINAE 0NOMS HealthcareATOPOBIUM VAGINAENot detectedNOMS HealthcareBVAB 2,3 (BACTERIAL VAGINOSIS ASSOCIATED BACTERIA 2, 3); MOBILUNCUS NVF2GANU HealthcareBVAB 2,3 (BACTERIAL VAGINOSIS ASSOCIATED BACTERIA 2, 3); MOBILUNCUS SPPNot detectedNOMS HealthcareCANDIDA ALBICANS, PARAPSILOSIS, RJSXKENFOW6WMWJ HealthcareCANDIDA ALBICANS, PARAPSILOSIS, TROPICALISNot detectedNOMS HealthcareCANDIDA GLABRATA0 NOMS HealthcareCANDIDA GLABRATANot detectedNOMS HealthcareCANDIDA DEXZUR0QUDX HealthcareCANDIDA KRUSEINot detectedNOMS HealthcareCHLAMYDIA CTJJUCRTHOY7VNTU HealthcareCHLAMYDIA TRACHOMATISNot detectedNOMS HealthcareGARDNERELLA VAGINALIS0 NOMS HealthcareGARDNERELLA VAGINALISNot detectedNOMS HealthcareMEGASPHAERA (TYPES 1, 2)0NOMS HealthcareMEGASPHAERA (TYPES 1, 2)Not detectedNOMS Healthcare MYCOPLASMA UNGCEUBTPJ1IOLK HealthcareMYCOPLASMA GENITALIUMNot detectedNOMS HealthcareNEISSERIA VNRITAIDHKM4ZPZQ HealthcareNEISSERIA GONORRHOEAENot detected NOMS HealthcareTRICHOMONAS LZFDLDPRT0VDUY HealthcareTRICHOMONAS VAGINALISNot detectedNOMS HealthcareNOMS HealthcareUrinalysis macro (dipstick) panel (U)on 00-49-7346Vtptujxhq, UAPositiveNegative - 4(70) +++ mg/dLNOMS HealthcareBlood, UANegativeNegative - 50 Randall/mcLNOMS HealthcareClarity, UAClearNOMS Healthcare Color, UAYellowNOMS HealthcareGlucose, UAPositiveNegative - 2000(110) ++++ mg/dL NOMS HealthcareInterpretation and review of laboratory resultsAbnormalNOMS HealthcareKetones, UAPositiveNegative - 160(16) ++++ mg/dLNOMS Healthcare Leukocytes, UANegativeNegative - 500+++ Rick/mcLNOMS HealthcareNitrite, UA NegativeNegative - PositiveNOMS HealthcarepH, UA65 - 9NOMS HealthcareProtein, UA PositiveNegative - 2000(20) ++++ mg/dLNOMS HealthcareSpec Grav, UA1.031 - 1.03 NOMS HealthcareUrobilinogen, UA0.20.2 - 12 mg/dLNOMS HealthcareNOMS HealthcareUS OB CERVICAL LENGTHon 22-63-9823OeaR[place] [address] Ultrasound Report Signed Patient: ALETA CASTRO MR#: [id number] : 2000 Acct:[id number] Age/Sex: 24 / F ADM Date: 10/06/24 Loc: US Attending Dr: Doc Thomas D.O. Ordering Physician: Doc Thomas D.O. Date of Service: 10/06/24 Procedure(s): US OB cervical length Accession Number(s): [id number] cc: Doc Thomas D.O.; ROSALIE PAYNE [place] [id number] Patient Name: ALETA CASTRO MRN: [id number] date: 2000 Sex: F Assigned Patient Location: US Current Patient Location: US Accession/Order Number: [id number] Exam Date: 10/06/2024 14:25 Report Date: 10/06/2024 [...] Jr., D.O. 10/06/2024 2:26 PM Dictation Location: [place] [address] Electronically authenticated by: [id number] Y Date: 10/06/2024 14:26 Dictated By: Jermaine Nguyễn M.D. Signed By: 10/06/241427 DD/ 25 TD/TT: Calciner Operator Helper:MARTINEadiologkehinde, Radiologist, - 10/06/2024 [place] [address] Ultrasound Report Signed Patient: ALETA CASTRO MR#: [id number] : 2000 Acct:[id number] Age/Sex: 24 / F ADM Date: 10/06/24 Loc: US Attending Dr: Doc Thomas D.O. Ordering Physician: Doc Thomas D.O. Date of Service: 10/06/24 Procedure(s): US OB cervical length Accession Number(s): [id number] cc: Doc Thomas D.O.; ROSALIE PAYNE [place] [address] Patient Name: ALETA CASTRO MRN: [id number] date: 2000 Sex: F Assigned Patient Location: US Current Patient Location: US Accession/Order Number: [id number] Exam Date: 10/06/2024 14:25 Report Date: 10/06/2024 [...] Jr., D.O. 10/06/2024 2:26 PM Dictation Location: [place] [address] Electronically authenticated by: [id number] Y Date: 10/06/2024 14:26 Dictated By: Jermaine Nguyễn M.D. Signed By: 10/06/24 1428 DD/ 142 TD/TT: Calciner Operator Helper: [facility] HospitalRadiology Study observation (narrative)[facility] Memorial HospitalUS OB CERVICAL LENGTHOrdered By: Radiologist Radiology on 37-00-1653WUWS [employer] Work Phone: US OB 14+ WEEKS ANATOMY SCANon 09-47-9820EX OB 14+ WEEKS ANATOMY SCANFINDINGS: A single, [...] TRANSCRIBED BY: ELECTRONICALLY SIGNED BY: Jermaine Beard MDNormalNot AvailableComment on above:Order Comment: US OB ANATOMY SINGLE W US OB CERVICAL LENGTH Estimated Date of Delivery: 02/20/25 Gestational Age as of 09/02/2024: 65r6pMycokjgxbm macro (dipstick) panel (U)on 96-21-5118Efsjgbtnl, UANegativeNegative - 4(70) +++ mg/dLNOMS HealthcareBlood, UANegativeNegative [...] mg/dLNOMS HealthcareNOMS Healthcare ALL THYROID STIM HORMONEon 29-88-3248UDR Qn0.836 m[IU]/LNOMS HealthcareCLINISYNC NOMS HealthcareUrinalysis macro (dipstick) panel (U)on 26-22-8578Mvsvkdumt, UA NegativeNegative - 4(70) +++ mg/dLNOMS HealthcareBlood, [...] 12 mg/dLNOMS HealthcareNOMS HealthcareALL THYROID STIM HORMONEon 34-82-6745LZP Qn1.413 m[IU]/LNOMS HealthcareCLINISYNCNOMS HealthcareUrinalysis macro (dipstick) panel (U)on 24-75-8130Xpnfhzhhd, UANegativeNegative - 4(70) +++ mg/dLNOMS HealthcareBlood, UANegativeNegative - 50 Randall/mcLNOMS Healthcare Clarity, UAClearNOMS HealthcareColor, UAYellowNOMS HealthcareGlucose, UANegative Negative - 2000(110) ++++ mg/dLNOMS HealthcareInterpretation and review of laboratory resultsAbnormalNOMS HealthcareKetones, UAPositiveNegative - 160(16) ++++ mg/dLNOMS HealthcareComment on above:40Leukocytes, UATraceNegative - 500+++ Rcik/mcLNOMS HealthcareNitrite, UANegativeNegative - PositiveNOMS HealthcarepH, UA6.55 - 9NOMS HealthcareProtein, UANegativeNegative - 2000(20) ++++ mg/dLNOMS HealthcareSpec Grav, UA1.0251 - 1.03NOMS HealthcareUrobilinogen, UA1.00.2 - 12 mg/dLNOMS HealthcareNOMS HealthcareBOX TESTon 89-79-9491IIG TEST SENT OUTUNITY NOMS UmbmmgwbipYKB7KEMLBSFAN RvhcdwrmxtZRT71/3/25NOMS HealthcareUNITY CLINISYNCNOFL HealthcareTBH DRUG SCREEN RAPID (URINE)on 79-71-7981AYNTRIONXZR SCREEN URINENegativeNEGATIVENOMS HealthcareBARBITURATES SCREEN URINENegative NEGATIVENOMS HealthcareBENZODIAZEPINES [...] URINENegativeNEGATIVENOMS HealthcareCLINISYNCNOMS HealthcareHCG ( test) Ql (U)on 05-55-3763Exyfgonvaipiup and review of laboratory resultsAbnormalNOMS HealthcarePreg Test, UrPositiveNegativeNOMS HealthcareNOMS HealthcareUS OB TRANSVAGINALon 46-29-8440MK OB TRANSVAGINALEXAM: US OB TRANSVAGINAL HISTORY: Dating. [...] II, MD, PHD at 19-Jul-2024 08:55:15 PM [facility] TeleradiologyNormalNot AvailableComment on above:Order Comment: US OB TRANSVAGINAL No LMP recorded.Urinalysis macro (dipstick) panel (U)on 03-53-7743Dgkqpvnme, UA NegativeNegative - 4(70) +++ mg/dLNOMS HealthcareBlood, [...] HealthcareNOMS HealthcareCBC W Auto Differential panel (Bld)on 23-75-7388Edvg form neutrophils (Bld) [#/Vol]CANCELED NOMS HealthcareComment on [...] HealthcareHematocrit (Bld) [Volume fraction]38.9 %35.0 - 45.0 %NOM HealthcareHemoglobin (Bld) [Mass/Vol]12.8 g/dL11.7 - 15.5 g/dLNOFL HealthcareLymphocytes (Bld) [#/Vol]1282 10*3/uLNOMS HealthcareLymphocytes/100 WBC (Bld)26.7 %[facility] Memorial HospitalMCH (RBC) [Entitic mass]30.6 pg27.0 - 33.0 pgNOJefferson Memorial HospitalHC (RBC) [Mass/Vol]32.9 g/dL32.0 - 36.0 g/dLNOFL HealthcareComment on above:For adults, a slight decrease in the calculated MCHC value (in the range of 30 to 32 g/dL) is most likely not clinically significant; however, it should be interpreted with caution in correlation with other red cell parameters and the patient's clinical condition. MCV (RBC) [Entitic vol]93.1 fL80.0 - 100.0 fLNOFL HealthcareMetamyelocytes (Bld) [#/Vol]CANCELED0 cells/uLNOMS HealthcareComment on above:Result canceled by the ancillary.Metamyelocytes/100 WBC (Bld)CANCELED%NOMS HealthcareComment on above: Result canceled by the ancillary.Monocytes (Bld) [#/Vol]422 10*3/uLNOMS HealthcareMonocytes/100 WBC (Bld)8.8 %NOM HealthcareMyelocytes (Bld) [#/Vol] CANCELED0 cells/uLNOMS HealthcareComment on [...] the ancillary.Variant lymphocytes/100 WBC (Bld)CANCELED0 - 10 %[facility] Healthcare Comment on above:Result canceled by the ancillary.WBC (Bld) [#/Vol]4.8 10*3/uL NOMS HealthcareIron and Iron binding capacity panelon 19-77-0963Nkfb [Mass/Vol] 101 ug/dLNOMS HealthcareIron binding capacity [Mass/Vol]340NOMS HealthcareIron saturation [Mass fraction]30NOMS HealthcareLaboratory - Chemistry and Chemistry - challengeon 70-98-8384Inpdnyf [Mass/Vol]4.8 g/dL3.6 - 5.1 g/dLNOFL Healthcare Albumin/Globulin [Mass ratio]1.8 {ratio}NOMS HealthcareALP [Catalytic activity/Vol]65 U/L31 - 125 U/LNOMS HealthcareALT [Catalytic activity/Vol]16 U/L 6 - 29 U/LNOMS HealthcareAST [Catalytic activity/Vol]14 U/L10 - 30 U/LNOMS HealthcareBilirubin [Mass/Vol]0.6 mg/dL0.2 - 1.2 mg/dLNOMS HealthcareCalcium [Mass/Vol]9.3 mg/dL8.6 - 10.2 mg/dLNOMS HealthcareChloride [Moles/Vol]107 mmol/L 98 - 110 mmol/LNOMS HealthcareCO2 [Moles/Vol]24 mmol/L20 - 32 mmol/LNOMS HealthcareCortisol [Mass/Vol]14.3 ug/dLmcg/dLNOFL HealthcareComment on above: Reference Range: For 8 a.m.(7-9 a.m.) Specimen: 4.0-22.0 Reference Range: For 4 p.m.(3-5 p.m.) Specimen: 3.0-17.0 * Please interpret above results accordingly * Creatinine [Mass/Vol]0.71 mg/dL0.50 - 0.96 mg/dLNOMS HealthcareGFR/1.73 sq M.predicted among non-blacks MDRD (S/P/Bld) [Vol rate/Area]122 mL/min/{1.73_m2}> OR = 60 mL/min/1.23g5BCBE HealthcareGlobulin (S) [Mass/Vol]2.6 g/dLNOFL HealthcareGlucose [Mass/Vol]95 mg/dL65 - 99 mg/dLCEDAR CITY HOSPITAL HealthcareComment on above: Fasting reference interval Potassium [Moles/Vol]4.2 mmol/L3.5 - 5.3 mmol/LNOMS HealthcareProtein [Mass/Vol] 7.4 g/dL6.1 - 8.1 g/dLNOFL HealthcareSodium [Moles/Vol]139 mmol/L135 - 146 mmol/LNOMS HealthcareUrea nitrogen [Mass/Vol]16 mg/dL7 - 25 mg/dLNOBates County Memorial Hospital Urea nitrogen/Creatinine [Mass ratio]SEE NOTE:[facility] HealthcareComment on above: Not Reported: BUN and Creatinine are within reference range. Laboratory - Serology - non-microon 76-74-9663Boldqiabopzkj Ab Qn153 [IU]/mLHigh < or = 1 IU/mLNOMS HealthcareTPO Ab Qn27 [IU]/mLHighNINFCEDAR CITY HOSPITAL HealthcareNo Panel Informationon 65-10-5181Kjhmuoxjwvoejp and review of laboratory resultsAbnormal [facility] [place] Organization Information Site ID: QTW Name: [facility] Address: [address] [place] [id number] Director: Urvashi [facility] Organization Information Site ID: QPT Name: [facility] Address: [address] [place] [address], [address] [place] [phone] Director: Yonis Beck MD[address] 01-92-8769Xbem T3 [Mass/Vol] 3.6 pg/mLNormal2.3-4.2Quest DiagnosticsComment on above:Performed By: #### 899, 73634, 866 #### [facility] [place] [address] Electrical And Radio Aircraft Mechanic: Yonis Beck MDT4, [facility] 98-75-0250Qtoj T4 [Mass/Vol]1.1 ng/dLNormal0.8-1.8Quest DiagnosticsComment on above:Order Comment: FASTING:NO FASTING: NOPerformed By: #### 899, 01687, 866 #### [facility] [place] [address] Electrical And Radio Aircraft Mechanic: Yonis Beck MDAvenir [facility] 01-66-6486QEE Qn1.98 m[IU]/LNormalQuest DiagnosticsComment on above:Result Comment: Reference Range > or = 20 Years 0.40-4.50 Ranges First trimester 0.26-2.66 Second trimester 0.55-2.73 Third trimester 0.43-2.91Performed By: #### 899, 83748, 866 #### [facility] [place] [address] Electrical And Radio Aircraft Mechanic: Yonis Beck MDG ( test) IA.rapid Ql (U)Ordered By: Marcelle Espinosa on 69-84-0390CDS ( test) Ql (U)NegativeBethesda North HospitalHCG,Urineon 19-48-9634Eovy HCG ( test) Ql (U) NegativeNoMartin General Hospital Physician GroupComment on above:Result Comment: PERFORMED BY: [facility] [address] [place] [address] PATHOLOGIST BROOMMAKER RAYMOND SUERO M.D.Performed By: #### UHCG #### [facility] [address] [place] [address] USALon 37-28-8807RXyixkqpv: [id number] Received: 09/03/23 Status: FRANKLYN Metzger Num: [id number] Spec Type: Surgical Subm Dr: Marcelle Espinosa DO Tissues: A Small Intestine - Biopsy/Polyp (SMALL BOWEL BX) B GASTRIC FOR HP (GASTRIC HP) C Esophagus Biopsy (DISTAL ESOPHAGUS) D Esophagus Biopsy (PROXIMAL ESOPHAGUS) E Colon Biopsy (RANDOM RT COLON) F Colon Biopsy (RANDOM LT COLON) Procedures: HE/12, Gross/Micro L4/6, H PYLORI, IHC First AB Age/ Patient Sex Location Account Attending Physician Aleta Castro [id number] Marcelle Espinosa DO SPEC NUM: [id number] RECD: 09/03/23 STATUS: FRANKLYN COTEAnil NUM: [id number] MIRIAM: 09/02/23- SUBM DR: Marcelle Espinosa DO ENTERED: 09/03/[address] [facility] DR: SPEC TYPE: Surgical DEPT: [...] mild squamous acanthosis and occasionally associated Specimen: [id number] Received: 09/03/23 Status: FRANKLYN Metzger Num: [id number] Spec Type: Surgical Subm Dr: Marcelle Espinosa DO Tissues: A Small Intestine - Biopsy/Polyp (SMALL BOWEL BX) B GASTRIC FOR HP (GASTRIC HP) C Esophagus Biopsy (DISTAL ESOPHAGUS) D Esophagus Biopsy (PROXIMAL ESOPHAGUS) E Colon Biopsy (RANDOM RT COLON) F Colon Biopsy (RANDOM LT COLON) Procedures: HE/12, Gross/Micro L4/6, H PYLORI, IHC First AB Patient: Aleta Castro [id number] (Continued) Specimen: [id number] Received: 09/03/23 (Continued) Pathological Diagnosis (Continued) Signed (signature on file) Heather Villegas MD 09/05/23 1417 Specimen: [id number] Received: 09/03/23 Status: FRANKLYN Metzger Num: [id number] Spec Type: Surgical Subm Dr: Marcelle Espinosa DO Tissues: A Small Intestine - Biopsy/Polyp (SMALL BOWEL BX) B GASTRIC FOR HP (GASTRIC HP) C Esophagus Biopsy (DISTAL ESOPHAGUS) D Esophagus Biopsy (PROXIMAL ESOPHAGUS) E Colon Biopsy (RANDOM RT COLON) F Colon Biopsy (RANDOM LT COLON) Procedures: , Gross/Micro L4/6, H PYLORI, IHC First AB Patient: MatthewAleta N [id number] (Continued) Specimen: [id number] Received: 09/03/23 (Continued) Pathological Diagnosis (Continued) lymphocytic [...] entirely submitted (more content not included)...[facility] Physician GroupInsurance Correspondence Officeon 23-59-6599Jjdnppncz Correspondence [id number]#1.00TIFFNormal Burrows [facility] Western MarylandIntraOperative Documentson 79-92-5000FlijvZapsewdmi [id number]#1.00TIFFNoLancaster Municipal HospitalPostoperative Documentson 33-35-4672Eoykdtyavhctu Documents [id number]#1.00TIFUniversity Hospitals TriPoint Medical CenterMain OR Intraoperative Recordon 90-17-7334Pqxt OR Intraoperative Record IntraOp Document Type FT Summary Primary Physician: Myron Marroquin DO Finalized Date/Time: 04/25/23 09:04:33 Pt. Name: ALETA CASTRO/Sex: 2000 Female Med Rec #: [id number] Physician: Myron Marroquin DO Financial #: [id number] Pt. Type: A Room/Bed: [place] [address] Admit/Disch: 04/23/23 06:25:15 - 04/23/23 14:50:00 Institution: [...] assist with the block. Patient's heartrate 89, bc63-904% on room air. patient tolerated block well. [...] Haas Role Performed Anesthesiologist Surgeon - Primary Waste Picker - Primary Joint Finisher Time In 04/23/23 08:50:00 04/23/23 09:15:00 04/23/23 08:50:00 Time Out 04/23/23 10:59:00 04/23/23 10:44:00 04/23/23 10:59:00 Procedure KNEE ARTHROSCOPY W/ ACL KNEE ARTHROSCOPY W/ ACL KNEE ARTHROSCOPY W/ ACL REPAIR(Left) REPAIR(Left) REPAIR(Left) Comments , anesthesia supervisor multifocal lens Last Modified By: Souleymane RN, Lyle Comer RN, Lyle Mcdonnell RN 04/23/23 10:59:32 04/23/23 10:59:32 04/23/23 10:59:32 Entry 4 Entry 5 Entry 6 Case Attendee Regulo Rodgers, Garry Noel CST Role Performed Staff - Other Scrub - Primary FIRE PREVENTION ENGINEER/SA Time In 04/23/23 08:50:00 04/23/23 08:50:00 04/23/23 08:50:00 Time Out 04/23/23 10:59:00 04/23/23 10:59:00 04/23/23 10:59:00 Procedure KNEE ARTHROSCOPY W/ ACL KNEE ARTHROSCOPY W/ ACL KNEE ARTHROSCOPY W/ ACL REPAIR(Left) REPAIR(Left) REPAIR(Left) Comments 2ND SCRUB AT THE SURGICAL FIELD Last Modified By: Souleymane MCQUEEN, Lyle Comer RN, Lyle Mcdonnell RN 04/23/23 10:59:32 04/23/23 10:59:32 04/23/23 10:59:32 General [...] RN, Ana Maria Bennett Kendall R, Blanca Uribe, Garry Camacho CST Time Out Complete 04/23/23 [...] FT Pre-Care Text: Implements (more content not included)...[facility] Consent for Anesthesiaon 24-69-5490Hsndweo for Anesthesia [id number]#1.00TIFUniversity Hospitals TriPoint Medical CenterDischarge Instructionson 26-85-9049Hwvjhbekq Instructions [id number]#1.00TIFUniversity Hospitals TriPoint Medical CenterIntraOperative Documentson 70-32-7637PpirpIypflxaad Documents [id number]#1.00[facility]red Hospital LimaOperative Reporton 99-65-1447Soznbabzc ReportSURGERY DATE: 04/23/2023 SALES AGENT FIRE INSURANCE: Garry Camacho CST PREOPERATIVE DIAGNOSIS: Left knee anterior cruciate ligament tear POSTOPERATIVE DIAGNOSIS: Left knee anterior cruciate ligament tear OPERATION: Left knee diagnostic operative arthroscopy with autograft silk-wbqbnp-rgdr anterior cruciate ligament reconstruction with InternalBrace augmentation ANESTHESIA: General as well as regional block ANESTHESIOLOGIST: KARTHIKEYAN Peacock ESTIMATED BLOOD LOSS: 10 mL INTRAVENOUS FLUIDS: Please see the operative record SPECIMEN: None COMPLICATIONS: None IMPLANTS: Arthrex wibn-veitgq-txfg Tightrope system with the button for the [...] The anterior cruciate ligament was reconstructed using hmff-ekexhd-nqts from patellar tendon autograft with this InternalBrace [...] over reaming with a 10 mm barrel rifler button. Excess bone debris is again removed. The [...] tensioned on the femo (more content not included)...[facility] CenterComment on above:Result Comment: Electronically Signed By: Myron Marroquin DO\.br\Date and Time Signed: 04/24/23 07:15 ESTPreoperative Documentson 78-11-5078Hapdqlvtwegu Documents [id number]#1.00TIFOur Lady of Mercy Hospital - Andersonsent for Procedure/Surgeryon 38-70-0843Uspxuyb for Procedure/Surgery [id number]#1.00[facility] for Treatmenton 77-52-5380Ikbhnxy for Treatment [id number]#1.00[facility] Hospital LimaDischarge Instructionson 96-00-9098Nkvunwtyp Instructions ALETA CASTRO :2000 Visit Date:04/23/2023 Inpatient [...] been scheduled. Call for any problems. Where: [address] [place] [phone] (1) Medications What How Much When Instructions Next Dose New acetaminophen-oxycodone (Percocet 5 mg-325 mg oral tablet) 1 Tablets By Mouth As Directed 1-2 po Q4-6h prn pain Dx: S83.512D Duration: 7 days Pickup at [facility]/pharmacy #2345 New aspirin (Ecotrin 325 mg Tab-EC) 1 Tablets By Mouth Every day Pickup at [facility]/pharmacy #2345 Pharmacy Information [facility]/pharmacy #[id number]: [address], [place] [phone] Allergies Banana (Throat tightness, Hives, Vomiting) Latex (Hives, Swelling) azithromycin (Hives) midodrine (Numbness) Education Materials [place], [place] [facility] DISCHARGE INSTRUCTIONS: ANTERIOR CRUCIATE [...] any concerns. Myron Marroquin, DO [facility] [address] [place] [address] Reviewed: 06-23 Revised: 03/29 Common Emergency Awareness [...] share your experie (more content not included)...Lorena [facility], Edwin ShawComment on above:Result Comment: Electronically Signed By: Marcelo MCQUEEN, Shyla Acevedo\.ammy\Date and Time Signed: 04/23/23 10:58 ESTH&P Updateon 04-23-2023H&P [id number]#1.00TIFF [facility] CenterMain OR PACU I Recordon 77-81-4346Jrho OR PACU I RecordPACU Phase I Document Type FT Summary Primary Physician: Myron Marroquin DO Finalized Date/Time: 04/23/23 12:22:33 Pt. Name: ALETA CASTRO/Sex: 2000 Female Med Rec #: [id number] Physician: Myron Marroquin DO Financial #: [id number] Pt. Type: A Room/Bed: [place] [address] Admit/Disch: 04/23/23 06:25:15 - Institution: Case Times [...] Signatures Signed By: Valencia Jimenez RN 04/23/23 12:22[facility] CenterMain OR Preoperative Recordon 51-71-0416Vypu OR Preoperative RecordPreOp Document Type FT Summary Primary Physician: Myron Marroquin DO Finalized Date/Time: 04/23/23 08:50:41 Pt. Name: ALETA CASTRO/Sex: 2000 Female Med Rec #: [id number] Physician: Myron Marroquin DO Financial #: [id number] Pt. Type: A Room/Bed: [place] [address] Admit/Disch: 04/23/23 06:25:15 - Institution: Case Times [...] Signatures Signed By: Lyle Comer RN 04/23/23 08:50NormalSelect Medical [facility] Clinic Rehabilitation Hospital, Edwin ShawMonitor Record on 69-88-3425Uiuxult [id number]#1.00TIFF [facility] Medical CenterOperative Reporton 57-68-7415Bublrzmbw Report Patient: ALETA CASTRO Age: 22 years Sex: Female : 2000 Associated Diagnoses: None Author: Urbano MENDEZ)Cyrus Procedure Nerve Block Block Type: Adductor canal [...] Using maximal sterile barrier technique per current CMS guidelines including hand hygeine, Guidance (Ultrasound used [...] None, The patient tolerated the procedure as expected.[facility]lower HospitalComment on above:Result Comment: Electronically Signed By: Urbano MENDEZ)Cyrus\.br\Date and Time Signed: 04/23/23 07:56 ESTPatient Education - Texton 58-75-7851Nrbyttt Education - Text [place], [place] [facility] DISCHARGE INSTRUCTIONS: ANTERIOR CRUCIATE [...] any concerns. Myron Marroquin DO [facility] [address] [place] [phone] Reviewed: 06-23 Revised: 03/29[facility] CenterProgress Note-Physicianon 41-19-1953Fbvugbha Note-PhysicianPatient: ALETA CASTRO Age: 22 years Sex: Female : 2000 Associated Diagnoses: None Author: Urbano Anesthesiology (DO)Cyrus Postoperative Information Postoperative disposition: Postoperative disposition: To [...] # 21 tab(s), Refills(s) 0, Pharmacy: [facility]/pharmacy #[id number], 165, cm, 04/04/23 6:11:00 EST, Height/Length Dosing, [...] All Problems H/O: hypothyroidism / SNOMED CT 526926136 / Confirmed POTS (postural orthostatic tachycardia syndrome) / SNOMED CT 0632551221 / Confirmed Physical Examination Vital Signs 04/23/2023 [...] Blood Pressure 1 (more content not included)... [facility] CenterComment on above:Result Comment: Electronically Signed By: Cyrus Modi DO\.br\Date and Time Signed: 04/23/23 11:06 ESTProgress Note-PhysicianPatient: ALETA CASTRO Age: 22 years Sex: Female : 2000 Associated Diagnoses: None Author: Myron Marroquin DO Postoperative Information Procedure: L knee scope, ACL recon Preoperative Diagnosis: L ACL tear. Postoperative Diagnosis: same. Performed by: daniel. Joint Finisher: Roby Camacho. Specimens Removed: none. Prosthesis: Arthrex. . Estimated Blood Loss: 10 ml. Complications: None. Anesthesia type: General, block.[facility] Medical CenterComment on above:Result Comment: Electronically Signed [...] # 21 tab(s), Refills(s) 0, Pharmacy: [facility]/pharmacy #[id number], 165, cm, 04/04/23 6:11:00 EST, Height/Length Dosing, 78, kg, 04/04/23 6:11:00 EST, Weight Dosing Percocet 5 mg-325 mg oral tablet: 1 tab(s), Oral, As Directed, 40 tab(s), Refill(s) 0, 1-2 po Q4-6hprn pain Dx: S83.512D Duration: 7 days, [facility]/pharmacy #2345, 165, cm, 04/04/23 6:11:00 EST, [...] All Problems H/O: hypothyroidism / SNOMED CT 662501138 / Confirmed POTS (postural orthostatic tachycardia syndrome) / SNOMED CT 3156590934 / Confirmed, Active Problems (2) H/O: hypothyroidism POTS (postural orthostatic tachycardia syndrome) Histories Past Medical History: No active or resolved past medical history items have been selected or recorded. Family History: No family history items have been selected or recorded. Procedure history: Laparoscopic left ovarian R/o (2746163925). Ovarian cyst removal (835010175). Social History Social & Psychosocial Habits Alcohol [...] Plan: Anesthesia General. Regional Adductor Canal Block Left.[facility] Medical CenterComment on above:Result Comment: Electronically Signed By: Urbano Anesthesiology (), Cyrus Zepeda.br\Date and Time Signed: 04/23/23 07:41 ESTU BetaHcg Qualon 34-87-8984ILQ.beta subunit (U) [Moles/Vol]NegativeNormBarney Children's Medical CenterComment on above:Performed By: #### [id number] ####[place] [address] [place], [place] [address]Yrbqkft for Procedure/Surgery on 50-94-5728Usluixb for Procedure/Surgery [id number]#1.00TIFFNoLancaster Municipal HospitalCBC w/ Auto Diffon 16-86-2050Badlxvec Absolute0.0 E9/LNormal0.0-0.2FMercy Health St. Anne HospitalComment on above:Performed By: #### [id number] ####[address] [address]Ahttmdfrk/100 WBC (Bld)0.4 %Normal0.0-2.0[facility], [facility] ShawComment on above:Performed By: #### [id number] ####[address] [address]Ljx Absolute0.1 E9/LNormal0.0-0.5FMercy Health St. Anne HospitalComment on above:Performed By: #### [id number] ####[address] [address]Uilzasoaavh/100 WBC (Bld)1.0 %Normal0.0-8.0[facility], [facility] ShawComment on above:Performed By: #### [id number] ####[address] [address]Lzneyvjrljm distribution width (RBC) [Ratio]12.6 %Cdwber53.9-14.2FMercy Health St. Anne Hospital Comment on above:Performed By: #### [id number] ####[address] [address]Lkxssayqrd (Bld) [Volume fraction] 39.0 %Sgdnof71.0-46.0[facility], [facility] ShawComment on above:Performed By: #### [id number] ####[address] [address]Thrwvwwpul (Bld) [Mass/Vol]13.1 g/kVUpfbov82.0-16.0[facility], [facility] ShawComment on above:Performed By: #### [id number] ####[address] [address]Aqwyz Absolute1.4 E9/LNormal 1.0-4.0[facility], [facility] ShawComment on above:Performed By: #### [id number] ####[address] [address] Lymphocytes/100 WBC (Bld)22.2 %Ckxxlp41.0-50.0[facility], [facility] ShawComment on above:Performed By: #### [id number] ####[address] [address]ZJK (RBC) [Entitic mass]30.6 pgNormal 27.0-34.0[facility], [facility] ShawComment on above:Performed By: #### [id number] ####[address] [address]YCTQ (RBC) [Mass/Vol]33.7 g/pRFrjuxh81.4-36.0[facility], Edwin ShawComment on above:Performed By: #### [id number] ####[address] [address]YUU (RBC) [Entitic vol]91.0 hRNtcgxf68.0-100.0 [facility], [facility] ShawComment on above:Performed By: #### [id number] ####[address] [address]Nayi Absolute0.4 E9/LNormal0.2-1.0[facility], [facility] ShawComment on above: Performed By: #### [id number] ####[place] [address] [address]Qqwmzirzl/100 WBC (Bld)5.6 %Normal4.0-14.0[facility], Edwin ShawComment on above:Performed By: #### [id number] ####[place] [address] [address]Bkilnn Absolute4.6 E9/LNormal2.0-7.5FMercy Health St. Anne HospitalComment on above:Performed By: #### 5367827 ####[address] [address]Vtxfxp Auto70.8 %Zfixdu77.0-75.0[facility], [facility] ShawComment on above:Performed By: #### [id number] ####[address] [address]Onhkuyof405.0 E9/SDacnpu954.0-500.0[facility], [facility] ShawComment on above:Performed By: #### [id number] ####[address] [address]Xkistlnu mean volume (Bld) [Entitic vol]7.7 fLNormal6.4-10.8[facility], [facility] ShawComment on above:Performed By: #### [id number] ####[address] [address]XGZ7.3 E12/LNormal4.3-5.9[facility], Edwin ShawComment on above:Performed By: #### [id number] ####[address] [address]KZN5.5 E9/LNormal4.0-11.0 [facility], [facility] ShawComment on above:Performed By: #### 6598734 ####[address] [address] Consent for Treatmenton 17-13-7833Jcwwpjr for Treatment [id number]#1.00TIFFNormalFisher Upmc Western MarylandHEMATOLOGYOrdered By: SYSTEM SYSTEM on 19-99-9549Qkmgbjho Absolute0.0 E9/L Normal0.0 - 0.2 E9/LRemisol HemeBasophils/100 WBC (Bld)0.4 %Normal0.0 - 2.0 % Remisol HemeEos Absolute0.1 E9/LNormal0.0 - 0.5 E9/LRemisol HemeEosinophils/100 WBC (Bld)1.0 %Normal0.0 - 8.0 %Remisol HemeErythrocyte distribution width (RBC) [Ratio]12.6 %Dzapbd54.9 - 14.2 %Remisol HemeHematocrit (Bld) [Volume fraction] 39.0 %Axzrmc23.0 - 46.0 %Remisol HemeHemoglobin (Bld) [Mass/Vol]13.1 g/dLNormal 12.0 - 16.0 gm/dLRemisol HemeLymph Absolute1.4 E9/LNormal1.0 - 4.0 E9/LRemisol HemeLymphocytes/100 WBC (Bld)22.2 %Oykpca88.0 - 50.0 %Remisol HemeMCH (RBC) [Entitic mass]30.6 dcCvquop88.0 - 34.0 pgRemisol HemeMCHC (RBC) [Mass/Vol]33.7 g/qEKdxkpe70.4 - 36.0 gm/dLRemisol HemeMCV (RBC) [Entitic vol]91.0 kRYkpoxw77.0 - 100.0 fLRemisol HemeMono Absolute0.4 E9/LNormal0.2 - 1.0 E9/LRemisol Heme Monocytes/100 WBC (Bld)5.6 %Normal4.0 - 14.0 %Remisol HemeNeutro Absolute4.6 E9/LNormal2.0 - 7.5 E9/LRemisol HemeNeutro Auto70.8 %Jqyrxj67.0 - 75.0 %Remisol QsrdAvhlgkcw618.0 E9/MDqjejz053.0 - 500.0 E9/LRemisol HemePlatelet mean volume (Bld) [Entitic vol]7.7 fLNormal6.4 - 10.8 fLRemisol HemeRBC4.3 E12/LNormal4.3 - 5.9 E12/LRemisol HemeWBC6.5 E9/LNormal4.0 - 11.0 E9/LRemisol HemeCOVID/FLU/RSV RT-PCRon 94-75-7828KEHW-CoV-2 (COVID-19) RNA QUEENIE+probe Ql (Unsp spec)Negative [facility] [employer] Other COVID/FLU/RSV RT-PCRNegativeEagle Point [employer] Other Quick Strepon 04-01-2023S. pyogenes Org specific cx Ql (Throat)NegativeEagle Point [employer] Other Quwrv StrepCentrl [employer] Other [place] Gallbladderon 33-37-1526GC GallbladderClinical History: Right upper quadrant pain. Diarrhea. [...] and signed by Cornelius Hernandez on 07/23/2022 1043NoAccess Hospital [facility] SpecialistQUAIL RUN BEHAVIORAL HEALTH ACOG PANEL 2: 21 to 29on 05-09-2022..NormalKettering Health PrebleComment on above:Performed By: #### [id number] #### [facility] [address] [place] [address] Dr. Yovanny Kelly Gdln ACOG Ygspgon45-72MtznfrVbzTriHealth McCullough-Hyde Memorial HospitalComment on above:Performed By: #### [id number] #### [facility] [address] [address] [address] Yovanny VillegasDIAGNOSIS:[place] on above: Result Comment: NEGATIVE FOR INTRAEPITHELIAL LESION OR MALIGNANCY.Performed By: #### [id number] #### [facility] [address] [place] [address] Dr. Yovanny VillegasMethodology:[place] on above: Result Comment: This liquid based ThinPrep(R) pap test was screened with the use of an image guided system.Performed By: #### [id number] #### [facility] [address] [place] [address] Dr. Yovanny VillegasNote:CommentRiverview Health Institute on above:Result Comment: The Pap smear is a screening test designed to aid in the detection of premalignant and malignant conditions of the uterine cervix. It is not a diagnostic procedure and should not be used as the sole means of detecting cervical cancer. Both false-positive and false-negative reports do occur. .Performed By: #### [id number] #### [facility] [address] [place] [address] Dr. Yovanny VillegasPerformed by:CommentRiverview Health Institute on above: Result Comment: Deedee Navarrete Imcu Specialist (ASCP)Performed By: #### [id number] #### [place] [address] Dr. Yovanny VillegasReflex Criteria:[place] on above:Result Comment: The HPV DNA reflex criteria were not met with this specimen result therefore, no HPV testing was performed. .Performed By: #### [id number] #### [facility] [address] [place] [address] Dr. Yovanny VillegasSpecimen adequacy:CommentRiverview Health Institute on above:Result Comment: Satisfactory for evaluation. Endocervical and/or squamous metaplastic cells (endocervical component) are present.Performed By: #### [id number] #### [place] [address] Dr. Yovanny VillegasCHLAMYDIA/GONOCOCCUS QUEENIE (SWAB/URINE/PAPon 86-99-6997Dfklhtgna trachomatis, NAANegativeNormalNegativeKettering Health PrebleComment on above: Performed By: #### CT/NGNA #### [facility] [address] [place] [address] Dr. Yovanny VillegasNeisseria gonorrhoeae, NAANegativeNormalNegativeKettering Health PrebleComment on above:Performed By: #### CT/NGNA #### [facility] [address] [place] [address] Dr. Yovanny VillegasVAGINITIS/VAGINOSIS DNA PROBEon 79-22-0027Gvcyxxb speciesNegative NormalNegativeKettering Health PrebleComment on above:Performed By: #### VAGINT #### [facility] [address] [place] [address] Dr. Yovanny VillegasGardnerella vaginalisNegativeNormalNegativeKettering Health Preble Comment on above:Performed By: #### VAGINT #### [facility] [address] [place] [address] Dr. Yovanny VillegasTrichomonas vaginalisNegativeNormalNegUniversity Hospitals Parma Medical Center Comment on above:Performed By: #### VAGINT #### [facility] [address] [place] [address] Dr. Yovanny VillegasXR KNEE LEFT (3 VIEWS)on 77-54-9243MY KNEE LEFT (3 VIEWS) EXAMINATION: THREE XRAY [...] by: Deshaun Aguilar MD 05/24/21 Final resultNormalMercy Hospital for Special Care fracture or dislocation. [facility] RIS CONSOLIDATEDEXAMINATION: THREE XRAY VIEWS [...] abnormality seen. IMPRESSION: No fracture or dislocation. CT [facility] Phone: radiology Study observation (narrative)CT [facility] Phone: XR KNEE LEFT (3 VIEWS)Ordered By: Deshaun Aguilar on 53-57-9325CntwoCT [facility] Phone: COVID Quick Testingon 46-68-5022CfktdaGlravyvbNunlp [employer] Other Quick Strepon 05-01-2021. pyogenes Org specific cx Ql (Throat)PositiveEagle Point [employer] Other Quick StrepEagle Point [employer] Other COVIN Quick Testingon 87-43-2020EbgppvNpevehmwTaqdn [employer] Other Quick Fluon 54-62-1239MUDTX Ab CF (S) [Titer]Negative [facility] [employer] Other FLUBV Ab CF (S) [Titer]NegativeEagle Point [employer] Other XR SACRUM COCCYX (MIN 2 VIEWS)on 57-57-9766CF SACRUM COCCYX (MIN 2 VIEWS)EXAMINATION: THREE XRAY VIEWS OF THE SACRUM/COCCYX 12/14/2020 3:10 am COMPARISON: None. HISTORY: ORDERING SYSTEM PROVIDED HISTORY: fall at work - hit mhtjs9he TECHNOLOGIST PROVIDED HISTORY: fall at work - hit uvchr9yx FINDINGS: The sacroiliac joints are normally aligned. The visualized portions the pelvis are. There is no fracture of the sacrum or coccyx evident. IMPRESSION: No acute osseous abnormality of the sacrum or coccyx evident. Interpreted by: Loc Oswald MD Signed by: Loc Oswald MD 12/14/20 Final resultNoOhioHealth Berger HospitalXR SACRUM COCCYX (MIN 2 VIEWS)Ordered By: David Dominguez on 82-98-6294Ct acute osseous abnormality of the sacrum or coccyx evident.CT [facility] Phone: eXAMINATION: THREE XRAY VIEWS OF THE SACRUM/COCCYX 12/14/2020 3:10 am COMPARISON: None. HISTORY: ORDERING SYSTEM PROVIDED HISTORY: fall at work - hit hpqck4sv TECHNOLOGIST PROVIDED HISTORY: fall at work - hit iozzh2in FINDINGS: The sacroiliac joints are normally aligned. The visualized portions the pelvis are. There is no fracture of the sacrum or coccyx evident. CT [facility] Phone: edi, [facility] Incoming Radiant Results From [employer] - 12/14/2020 3:24 AM EDT EXAMINATION: THREE XRAY VIEWS OF THE SACRUM/COCCYX 12/14/2020 3:10 am COMPARISON: None. HISTORY: ORDERING SYSTEM PROVIDED HISTORY: fall at work - hit alxur6sk TECHNOLOGIST PROVIDED HISTORY: fall at work - hit khxan2ps FINDINGS: The sacroiliac joints are normally aligned. The visualized portions the pelvis are. There is no fracture of the sacrum or coccyx evident. IMPRESSION: No acute osseous abnormality of the sacrum or coccyx evident. CT [facility] Phone: [facility] HospitalShareWithU Phone: ct HEAD WO CONTRASTon 03-52-2195IA HEAD WO CONTRAST EXAMINATION: CT OF THE [...] Signed by: Maira Cruz MD 09/19/20 Final resultNormalMercy New Milford HospitalCT Head WO ContrastOrdered By: Luis Carlos Fragoso on 59-65-8480Buynvcdcvirb noncontrast CT examination of the brain.CT [facility] Phone: eXAMINATION: CT OF THE HEAD WITHOUT [...] abnormality of the visualized skull or soft tissues.CT [facility] Phone: evinay [facility] Incoming Radiant Results From [employer] - 09/19/2020 4:42 PM EDT EXAMINATION: CT [...] Unremarkable noncontrast CT examination of the brain. [address] Work Phone: [facility] HospitalGutenbergz Work Phone: coding Summaryon 13-89-7910Ekidmv SummaryCODING DATE: 10/27/2019 [facility] STATUS: Home PAYOR: [place] ADMIT DX: REASON FOR VISIT DX: J02.9 [...] By: Ashley Pablo Date Saved: 10/27/2019 03:10 [facility]2019 Novel Coronavirus (CoVID-19), QUEENIE on 40-17-7873AFJA-CoV-2, QUEENIE (COVID-19) LCNot DetectedNot Regional Medical CenterComment on above:Order Comment: [id number] Comment: This test was developed and its performance characteristics determined by [employer]. This test has not been FDA cleared [...] detected) result in this assay. Performed At: [facility] [address] [facility] [place] [id number] Ruba Washburn MD Ph:[phone] By: #### [id number] #### [facility] ([facility]) [address] [place] [address]13[address]Ctqgxhp Formson 56-47-9356Zhwsvpl Forms [id number]#1.00OTGTBarney Children's Medical CenterCNCO on 97-03-4596EWBFAnamtt TextToll Free: [phone].[email or web address]/cancer [facility] Meevtatv[address] [place] [address]Fdnqt: [phone]: [facility] [place], [place] [address]Wzrbj: [phone]: [facility] Uwehwln[address] [place], [place] [address]Qslnc: [phone]: Steve Pablo M.D., Ronaldo Marquez M.D.David Becerril M.D.Papito Sood D.O..Carin Hoover M.D. FACROSaju A. Rajan, M.D.Date: July 15, 2017Re: Aleta TanishaSKYLER WHOM IT MAY CONCERN:She was seen in our office today.Sincerely,Katelin Cardona PSR(signed electronically to expedite mailing)[facility]oledo HospitalCNOVSPon [id number] (SP) Office ([place]MAC[place]) --------ALETA GARAY ([id number]) 89 FDate Time Provider Department07/15/17 3:15 PM MIAN BECERRIL During your visit today, [...] nourishedNeuro: Gait normal.Collected: 05/15/17 104 3Resulting lab: [facility] MAIN LABORATORYValue: (NOTE)Comment: Performing [...] to develop anyissues certainly could consider further testingAled Gordy Barone 07/15/2017 3:10 PM SignedPatient went overmedication list. no changes .Referring Provider: DAVID BECERRIL [[id number]]Allergies As of Date: 07/15/2017(No Known Allergies)Date Reviewed: [...] .Encounter Status:Closed by DAVID BECERRIL MD on 07/17/17[facility] 29-28-5657TLFLWWIFWYZ ID: [id number]: David Escaleraervice: (none)Author Type: PhysicianType: Progress NotesFiled: [...] well nourishedNeuro: Gait normal.Collected: 05/15/17 1043Resulting lab: [facility] MAIN LABORATORYValue: (NOTE)Comment: Performing [...] certainly could consider further testingAlfred Sandeep Becerril MDNormalCGalion Community Hospitallet Fun Scrnon 80-88-9792VLF/ADP Mohxducvl38 CT (sec) Normal<118CleSamaritan North Health Center on above:Result Comment: Results are reported as Closure Time (CT) in seconds.Performed By: #### PLTSCP ####[address] [phone]/EPI Ztgwxgehq348 CT (sec)Normal<199[facility] on above:Result Comment: Results are reported as Closure Time (CT) in seconds. Performed By: #### PLTSCP ####[address] [phone] Func Scr Interp(NOTE)NormalBellevue Hospital on above:Result Comment: Performing Pathologist: Jo-Ann [...] a bleeding disorder. Performed By: #### PLTSCP ####[address] [phone] CBCDIF (for [facility] use only)on 01-48-3927Pgo Baso<0.03Normal<0.11[facility] on above: Performed By: #### RCBCDF ####[address] [phone] Mono0.53 k/uLNormal<0.87[facility] on above:Performed By: #### RCBCDF ####[address] [phone] Neut2.59 k/uL Normal1.45-7.50[facility] on above:Performed By: #### RCBCDF ####[place] [address], [place] [phone]/100 WBC Auto (Bld)0.4 %NormalBellevue Hospital on above:Performed By: #### RCBCDF ####[place] [address] [address], [place] [phone] DiffNormal [facility] on above:Performed By: #### RCBCDF ####[place] [address] [address], [place] [phone] 10*3/uLNormal<0.46[facility] on above:Performed By: #### RCBCDF ####[place] [address] [address], [place] [phone]/100 leukocytes1.5 %Normal [facility] on above:Performed By: #### RCBCDF ####[place] [address] [address], [place] [phone] distribution width Auto Ratio (RBC)12.2 %Ghlorh16.5-15.0 [facility] on above:Performed By: #### RCBCDF ####[place] [address] [address], [place] [phone] [phone] (RBC)4.15 10*6/uLNormal3.90-5.20[facility] on above:Performed By: #### RCBCDF ####[place] [address] [address], [place] [phone] (RBC)0.0 /100 WBCNormal 0[facility] on above:Performed By: #### RCBCDF ####[place] [address] [address], [place] [phone] [phone] (RBC)10*6/uLNormal<0.01[facility] on above:Performed By: #### EVANDF ####[place] [address] [address] AveCBrittany [place]ille [phone] (HCT)39.4 %Qhuoon27.0-46.0 [facility] Hospitalment on above:Performed By: #### EVANDF ####[place] [address] [address] AveCMartha Ville [phone] mass conc (Bld)12.8 g/mJSnkfht82.5-15.5[facility] on above:Performed By: #### RCISAIAHDF ####[place] [phone] 10*3/uLNormal1.00-4.00[facility] Hospitalment on above:Performed By: #### RCISAIAHDF ####[place] [address] [address] AveCBrittany Ville [phone]/100 .9 %NormalBellevue Hospital on above:Performed By: #### RCISAIAHDF ####[address] AvJustin V[address] [phone] pGNormal 26.0-34.0[facility] on above:Performed By: #### RCBCDF ####[place] [address] [address] [place] [phone] mass conc (RBC)32.5 g/iRMlwcil13.5-36.0[facility] Comment on above:Performed By: #### RCBCDF ####[place] [address] [address] [place] [phone] oXWjptvz61.0-100.0[facility] on above:Performed By: #### RCBCDF ####[place] [address]CInd[place], [place] [phone]/100 jashyzwcnu52.6 %NormalMount Carmel Health SystemComment on above:Performed By: #### RCBCDF ####[facility], [place] [phone]/100 WBC Auto (Bld)56.6 %NormalBellevue Hospital on above:Performed By: #### RCBCDF ####[place] [address] [address], [place] [phone] mean volume (PMV)10.2 fLNormal9.0-12.7CTriHealth McCullough-Hyde Memorial Hospitalment on above:Performed By: #### RCBCDF ####[place] [address] [address], [place] [phone] 10*3/jGOmeyvi377-987KbuapjaiwMount Carmel Health System Comment on above:Performed By: #### RCBCDF ####[place] [address]CInd[place], [place] [phone] (Leukocytes)4.58 10*3/uLNormal 3.70-11.00[facility] Hospitalment on above:Performed By: #### RCBCDF ####[facility] AvOcracoke, [place] [phone] [phone] 50-98-9413HKWFSlmrih TextToll Free: [phone].[email or web address]/cancer [facility] Usssscub[address] [place], [place] [address]Aemto: [phone]: [facility] Centeryde[address] [place], [place] [address]Godac: [phone]: [facility] Centerk[address] [place], [place] [address]Ardyk: [phone]: Steve Pablo M.D., Ronaldo Marquez M.D.David Becerril M.D.Papito Sood D.O..Myriam Chaudhari M.D.Deandre Montoya M.D. Matthew Huff M.D.Date: April 29, 2017Re: Aleta Elliott WHOM IT MAY CONCERN:She was seen in our office today.Sincerely,Karly Pizarro Psr(signed electronically to expedite mailing)[facility]edo HospitalCNOVSPon [phone] (SP) Office (HEMACL) --------ALETA GARAY ([id number]) 89 FDate Time Provider Department04/29/17 2:30 PM [...] patientand her mother at length. Would check [id number] at this time, further testingbased on results.1. 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 Would check [id number] at this time, furthertesting based on results.1. 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, choice of management likely to be influenced by history ofPOTSAlfrChery Tomas [facility] Vital Signs Date TimeVital SignValuePerforming RxfeuplzjHvusmmfw92-76-0101 14:02-0500Body mass index (BMI) [Ratio]30 kg/m2Pretty ARELLANO Work Phone: [facility] HospitalLoopmyolik92-52-2240 14:02-0500Body flsovq80.29 kgPretty ARELLANO Work Phone: [phone] HospitalZldinbolka20-09-6092 14:02-0500Diastolic blood tvmumypm92 mm[Hg]Pretty ARELLANO Work Phone: FariqakBates County Memorial HospitalQwhlzaiyka15-64-1026 14:02-0500Systolic blood ckvvcpwi33 mm[Hg]Pretty ARELLANO Work Phone: [phone] HospitalVgkqdhaqzh24-21-6511 13:04-0400Body mass index (BMI) [Ratio]29.59 kg/f5Kibyx William DO Work Phone: FariqakBates County Memorial HospitalOsopdqiqtb15-35-0420 13:04-0400Body tvyxqa98.2 kg Doc William DO Work Phone: [phone]-[facility] HospitalTgmpskeudq67-53-0445 13:04-0400Diastolic blood mm[Hg]Doc William DO Work Phone: [facility] HospitalLtzxxohgmi79-11-9834 13:04-0400Systolic blood qhcqeekl351 mm[Hg]Doc William DO Work Phone: [phone] [place], [place] [address]Xncuxoiftm67-79-4802 13:57-0400Body mass index (BMI) [Ratio]29.42 kg/p3Nijrqevv Enio TABLEAU ANALYST Work Phone: 1([phone])[facility] [place], [place] [address]Nwzsjlorub34-53-9830 13:57-0400Body ovbdlx13.75 kgKrselene Qiuly TABLEAU ANALYST Work Phone: [phone] [place], [place] 2164810-08-2025 13:57-0400Diastolic blood upzbcxkq70 mm[Hg]Luna Enio TABLEAU ANALYST Work Phone: 1(405)[facility] [place], [place] [address]Vfjxzrflmt47-26-5948 13:57-0400Systolic blood mndlqupt640 mm[Hg]Luna Enio TABLEAU ANALYST Work Phone: 1(335)[address] [place], [place] 2164809-24-2025 14:07-0400Body mass index (BMI) [Ratio]28.84 kg/o5Pnhhv William DO Work Phone: [phone])[address] [place], [place] 2164809-24-2025 14:07-0400Body jcanaz73.2 kg Doc William DO Work Phone: 1(598)[facility] [place] [address]-24-2025 14:07-0400Diastolic blood jmedblhu69 mm[Hg]Doc William DO Work Phone: 1(197)[facility] [place], [place] [address]Duyuvmxuht63-89-8078 14:07-0400Systolic blood nxlqljbo366 mm[Hg]Doc William DO Work Phone: 1([phone])[address] [place] [address]-10-2025 14:04-0400Body mass index (BMI) [Ratio]29.95 kg/p1IeegxdhrLuna Conraderly TABLEAU ANALYST Work Phone: [phone])[address] [place] [address]-10-2025 14:04-0400Body .15 kgKrniviaa Enio TABLEAU ANALYST Work Phone: 1(326)[facility] [place] [address]-10-2025 14:04-0400Diastolic blood drhuqsfy96 mm[Hg]Luna Enio TABLEAU ANALYST Work Phone: [facility] HospitalQefxhrjzaz83-44-0563 14:04-0400Systolic blood vyjcnzjc777 mm[Hg]Luna Enio SU Work Phone: [phone])254-[facility] HospitalObulyyaler42-01-8206 14:39-0400Body mass index (BMI) [Ratio]28.49 kg/m2Pretty ARELLANO Work Phone: [facility] HospitalEporvkrbis29-71-2256 14:39-0400Body .3 kg Pretty ARELLANO Work Phone: [phone])737-[address] [place], [place] [address]Tqnxoyotll07-44-6717 14:39-0400Diastolic blood iaqcvfri95 mm[Hg]Pretty ARELLANO Work Phone: [phone])137-[address] [place], [place] [address]Uwuysupryi22-21-8424 14:39-0400Systolic blood pcvsgwor456 mm[Hg]Pretty ARELLANO Work Phone: [phone])480-[address] [place], [place] [address]Dumowcaquc48-77-4922 15:34-0400Body mass index (BMI) [Ratio]28.29 kg/v0Zwkib William DO Work Phone: [phone])687-[address] [place], [place] [address]Erxyaggqll57-91-2696 15:34-0400Body .75 kgCorey William DO Work Phone: [phone] [place], [place] [address]Hoyoxpzkjr08-13-5357 15:34-0400Diastolic blood rjosjimu98 mm[Hg]Doc William DO Work Phone: 1(876)234-[address] [place], [place] [address]Vyjalsgnpc38-78-2593 15:34-0400Systolic blood yljnbzpd436 mm[Hg]Doc William DO Work Phone: 1(492)524-[address] [place], [place] [address]Amszfollbw49-34-5765 14:27-0400Body mass index (BMI) [Ratio]30.21 kg/q2Cpops William DO Work Phone: [phone])015-[address] [place], [place] [address]Mtksdihxat63-19-2563 14:27-0400Body jkiwdm84.83 kgCorey William DO Work Phone: [phone]-[facility] HospitalOsxrooaliu75-45-1253 14:27-0400Diastolic blood qqdjidnj44 mm[Hg]Doc William DO Work Phone: [facility] HospitalAniaiafyrv95-20-2759 14:27-0400Systolic blood ckbilaoz749 mm[Hg]Doc Thomas DO Work Phone: [facility] HospitalOijaudwoub01-40-5830 15:41-0500Body qgilwn672.6 cmDavid Pocos DO Work Phone: [facility] HospitalKurivynyei36-91-8632 15:41-0500Body mass index (BMI) [Ratio]30.21 kg/r3Xwpzb Pocos DO Work Phone: [facility] HospitalIkokudalbc61-35-6511 15:41-0500Body jpyzih57.83 kgDavid Pocos DO Work Phone: [facility] HospitalOofasmgjpb72-48-5336 15:26-0500Body dfwudy256.6 cmEtyshawn Payne MD Work Phone: [facility] HospitalUurjoycftl64-86-0191 15:26-0500Body mass index (BMI) [Ratio]30.21 kg/h0FrkoegRosalie Payne MD Work Phone: [facility] HospitalKrsrtaldxv35-88-5218 15:26-0500Body jpjiar80.83 kgRosalie Payne MD Work Phone: [facility] HospitalBswrtsqwul26-57-2217 15:26-0500Heart rate88 /min Rosalie Payne MD Work Phone: [facility] HospitalLpdaxqaout49-77-3058 15:26-0629FeJ2% (BldA) [Mass fraction]98 %Rosalie Payne MD Work Phone: [facility] HospitalPteufqsvat37-07-6524 08:00-0400Body xalfic539.6 cmKelvin Schwartz DO Work Phone: [facility] HospitalCoixftnxkr17-29-8050 08:00-0400Body mass index (BMI) [Ratio]30.9 kg/r4OowacKelvin Schwartz DO Work Phone: [facility] HospitalQzhwoezwjk49-12-3945 08:00-0400Body .65 kgKelvin Schwartz DO Work Phone: [facility] HospitalRkrsyymbvr68-34-2642 14:25-0400Diastolic blood euhdfowi60 mm[Hg]MD Rosalie Payne Work Phone: [phone] [place], [place] 7372606-17-2024 14:25-0400 Heart rate80 /minMD Rosalie Payne Work Phone: 1(133)[address] [place], [place] 1383406-17-2024 14:25-0400 Respiratory rate18 /minMD Rosalie Payne Work Phone: 1(789)125-[address] [place], [place] 7372606-17-2024 14:25-0400 SaO2% (BldA) [Mass fraction]100 %MD Rosalie Payne Work Phone: 1(529)[address] [place], [place] 1383406-17-2024 14:25-0400 Systolic blood ayleruqr346 mm[Hg]MD Rosalie Payne Work Phone: 1(094)[address] [place], [place] 1383406-17-2024 11:31-0400 Body ffotxl316.1 cmAK Rosalie Payne Work Phone: 1(718)[facility] [place], [place] 7372606-17-2024 11:31-0400 Body zqvuxxdcmdj71.4 [degF]MD Rosalie Payne Work Phone: 1(713)051-[address] [place], [place] 7372606-17-2024 11:31-0400 Body .11 kgMD Rosalie Payne Work Phone: 1(743)624-[address] [place], [place] 7372605-09-2024 14:21-0400 Body .1 cmBet[facility]05-09-2024 14:21-0400Body mass index (BMI) [Ratio]28.3 kg/r1OwccymextBethesda North Hospital05-09-2024 14:21-0400Body ytcxac40.11 kgBethesda North Hospital05-09-2024 14:-0400Diastolic blood xwyuhxqg32 mm[Hg][facility] 07-25-2023 14:21-0400Heart rate81 /minBethesda North Hospital 07-25-2023 14:0400Systolic blood eujyyyyi230 mm[Hg][facility]01-17-2024 14:55-0500Diastolic blood maysysaa86 mm[Hg]Myron Caroos [address] [place], [place] 7053801-17-2024 14:55-0500Heart dagk984 /minDavid Pocos [address] [place], [place] 7053801-17-2024 14:55-0500Mean blood bxeycjig501 mm[Hg]Myron Caroos [address] [place], [place] 7053801-17-2024 14:55-0500 Systolic blood dcqgynvq137 mm[Hg]Myron Caroos [address]01-17-2024 14:53-0500Heart rate98 /minDavid Pocos [address]01-17-2024 14:53-9039RsZ2% (BldA) [Mass fraction]99 %Myron Caroos [address] [place], [place] 7053801-17-2024 14:53-0500 Diastolic blood flpigmdr40 mm[Hg]Myron Caroos [address] [place], [place] 7053801-17-2024 14:53-0500Mean blood szffeplz375 mm[Hg]Myron Caroos [address]01-17-2024 14:53-0500 Systolic blood jrogkgql684 mm[Hg]Myron Vaniaos [address] [place], [place] 7053801-17-2024 14:52-0500 Respiratory rate16 /minDavid Pocos [address] [place], [place] 7053801-15-2024 10:45-0500Body uscwwy147.1 cmAmanda Kristine Other [facility] [employer] Other 01-15-2024 10:45-0500Body mass index (BMI) [Ratio] 28.29 kg/y8Edtnfv Kristine Other north [employer] Other 01-15-2024 10:45-0500Body .1 [degF]Destinee Kristine Other [employer] Other 01-15-2024 10:45-0500Body oqfnue58.11 kgAmanda Kristine Other [employer] Other 01-15-2024 10:45-0500Respiratory rate18 /minAmanda Kristine Other [employer] Other 01-15-2024 10:45-5968LxR3% (BldA) [Mass fraction]99 % Destinee Kristine Other [employer] Other 06-06-2022 11:25-0400Body kjufvb058.1 cmPamela Martha Other [employer] Other 06-06-2022 11:25-0400Body mass index (BMI) [Ratio] 27.12 kg/s9Miavwq Martha Other [employer] Other 06-06-2022 11:25-0400Body aufuadmpito32.6 [degF]Carlie Martha Other [employer] Other 06-06-2022 11:25-0400Body zcloxs83.94 kgPamela Martha Other [employer] Other 06-06-2022 11:25-0400Respiratory rate18 /minPahollya Martha Other [employer] Other 06-06-2022 11:25-0100LeP4% (BldA) [Mass fraction]97 % Carlie Thomas Other nort [employer] Other 03-09-2022 20:36-0500Body vplyhtqcluj39.7 [degF]Artis Yoder DO Work Phone: [facility] Uodxhd73-71-2525 20:36-0500Diastolic blood rxfihiam35 mm[Hg]Artis Carter DO Work Phone: [facility] HospitalGutenbergzGpinvw06-09-1896 20:36-0500Heart brno042 /min Artis Yoder DO Work Phone: [facility] HospitalGutenbergzEcctov63-35-9071 20:36-0500Respiratory rate16 /minArtis Carter DO Work Phone: [facility] Bsjoap49-25-7709 20:36-7100HyY3% (BldA) [Mass fraction]97 %Artis Yoder DO Work Phone: [facility] Qnkcef46-55-5987 20:36-0500Systolic blood haesiybi802 mm[Hg]Artis Yoder DO Work Phone: [facility] HospitalGutenbergzShaepr44-57-3869 13:10-0500Body fewnht422.1 cm Adriana Evangelista Other noCentrl [employer] Other 02-24-2022 13:10-0500Body mass index (BMI) [Ratio] 27.12 kg/h6PixwqegwqAdriana Evangelista Other [employer] Other 02-24-2022 13:10-0500Body dnmivoroapc74.8 [degF] Adriana Evangelista Other [employer] Other 02-24-2022 13:10-0500Body mtvvna54.94 kgAdriana Evangelista Other [employer] Other 02-24-2022 13:10-0500Diastolic blood ejxmmutf57 mm[Hg] Adriana Evangelista Other [employer] Other 02-24-2022 13:10-0500Respiratory rate18 /minSfeliz Evangelista Other [employer] Other 02-24-2022 13:10-2764RaI7% (BldA) [Mass fraction]99 % Adriana Evangelista Other [employer] Other 02-24-2022 13:10-0500Systolic blood oycchalt094 mm[Hg] Adriana Evangelista Other [employer] Other 02-14-2022 11:40-0500Body nfypqu661.1 cmPamela Martha Other [employer] Other 02-14-2022 11:40-0500Body mass index (BMI) [Ratio] 26.62 kg/o7Geskamshreyas Thomas Other [employer] Other 02-14-2022 11:40-0500Body uxgfjuvtpxg57.6 [degF]Carlie Lewismond Other [employer] Other 02-14-2022 11:40-0500Body zmawnv62.58 kgPashreyas Thomas Other [employer] Other 02-14-2022 11:40-0500Respiratory rate18 /minCarlie Thomas Other [employer] Other 02-14-2022 11:40-9856AqJ0% (BldA) [Mass fraction]99 % Carlie Lewismond Other nort [employer] Other 01-21-2022 12:00-0500Body loarde074.1 Ivettnicolleemerita Ramirez Other [facility] [employer] Other 01-21-2022 12:00-0500Body mass index (BMI) [Ratio] 26.62 kg/x5FqzjnhSandeep Ramirez Other [employer] Other 01-21-2022 12:00-0500Body fdvuoebfuxf13.6 [degF]Sandeep Ramirez Other [employer] Other 01-21-2022 12:00-0500Body mkapvf17.58 kgSandeep Ramirez Other [facility] [employer] Other 01-21-2022 12:00-0614DeA3% (BldA) [Mass fraction]98 % Sandeep Ramirez Other [employer] Other 09-28-2021 23:25-0400Diastolic blood fglltpji42 mm[Hg] David Dominguez MD Work Phone: [employer] Work Phone: 1(164) 114-383709-28-2021 23:25-0400Systolic blood wrszanpc687 mm[Hg] David Dominguez MD Work Phone: [employer] Work Phone: 1(519) 285-967509-28-2021 23:23-0400Body ctluqi292.1 Mira Dominguez MD Work Phone: [employer] Work Phone: 1(637) 821-212509-28-2021 23:23-0400Body mass index (BMI) [Ratio] 26.63 kg/v1PpacgbdDavid Dominguez MD Work Phone: [facility] [employer] Work Phone: 1(547) 459-150409-28-2021 23:23-0400Body ufcqnscjbtv98.29 [degF] David Dominguez MD Work Phone: [facility] [employer] Work Phone: 1(711) 478-928809-28-2021 23:23-0400Body .58 kgDavid Dominguez MD Work Phone: [facility] [employer] Work Phone: 1(613) 861-980109-28-2021 23:23-0400Heart rate79 /Sharon Dominguez MD Work Phone: [facility] [employer] Work Phone: 1(416) 444-528009-28-2021 23:23-0400Respiratory rate14 /Sharon Dominguez MD Work Phone: [facility] [employer] Work Phone: 1(145) 826-578909-28-2021 23:23-7794TtC6% (BldA) [Mass fraction]99 % David Dominguez MD Work Phone: [facility] [employer] Work Phone: 1(311) 870-867307-05-2021 15:56-0400Body srjiaqzpbcc30.6 [degF][address] Work Phone: 1(563) 935-105907-05-2021 15:56-0400Diastolic blood dkejcrwu61 mm[Hg] [address] Work Phone: 1(636) 374-356707-05-2021 15:56-0400Heart lank144 /minSuede Lane Work Phone: 1(745) 516-241007-05-2021 15:56-0400Respiratory rate16 /minSuede Lane Work Phone: 1(276) 200-621907-05-2021 15:56-8698BbR8% (BldA) [Mass fraction]100 % [address] Work Phone: 1(698) 396-259607-05-2021 15:56-0400Systolic blood rezidvmk997 mm[Hg] [address] Work Phone: Encounters Encounter DateEncounter [facility] ProviderFacilityStart: 01-20-2025 End: 70-10-8724Eomfso Herson ARELLANO Work Phone: [facility]: 01-20[facility]2025 End: 94-96-9069Ydmdbe Herson ARELLANO Work Phone: [facility]Start: 01-20-2025 End: 31-14-4215Eoqkykpbi Result EncounterCorey William DO Work Phone: [facility] External Department UnsolicitedStart: 01-20-2025 End: 38-93-3626Lizagtvd tamika ARELLANO Work Phone: [facility] [place] OBGYNComment on above:Third trimester ([facility] 35 weeks gestation of ([facility])Start: 01-20-2025 End: 56-49-0662kiavmffcurCUW RAMEYNot AvailableStart: 01-11-2025 End: 35-82-3782Chmtpaggn Result EncounterCorey William DO Work Phone: [facility] External Department UnsolicitedStart: 01-11-2025 End: 67-75-8268Ezcmjhcan Result EncounterCorey William DO Work Phone: [facility] External Department UnsolicitedStart: 01-05-2025 End: 24-64-8513Bftglh flowsheetCorey William DO Work Phone: [facility]YNStart: 01-05-2025 End: 83-98-3918Jvnoua flowsheetCorey William DO Work Phone: [facility]BGYNStart: 01-05-2025 End: 73-25-1711Naviyipk flow sheetCorey William DO Work Phone: [facility] OBGYNComment on above:Third trimester ([facility]); 33 weeks gestation of ([facility])Start: 01-05-2025 End: 91-91-5577wzjidvihyeUJGHA FAZIONot AvailableStart: 01-02-2025 End: 92-75-0220Cnihfoako Result EncounterGeneric External Data ProviderNOMS External Department UnsolicitedStart: 01-02-2025 End: 73-94-8847Zhoybhqvx Result EncounterGeneric External Data ProviderNOMS External Department UnsolicitedStart: 12-26-2024 End: 25-41-2094Ybtxkgixx Result EncounterGeneric External Data ProviderNOMS External Department UnsolicitedStart: 12-26-2024 End: 69-42-2795Vqsjmpywz Result EncounterGeneric External Data ProviderNOMS External Department UnsolicitedStart: 12-23-2024 End: 92-32-1520Ghnbkz flowsheetLuna Qiuly TABLEAU ANALYST Work Phone: [facility]YNStart: 12-23-2024 End: 84-06-0316Zmhptz flowsheetLuna Steen TABLEAU ANALYST Work Phone: [facility] [facility]BGYNStart: 12-23-2024 End: 71-33-8404Giplpjcp flow sheetDaliaa Enio TABLEAU ANALYST Work Phone: [facility] OBGYNComment on above:Third trimester ([facility]); 31 weeks gestation of ([facility])Start: 12-23-2024 End: 07-43-8695divtjbzfmbJBMSULVP EBERLYNot AvailableStart: 12-09-2024 End: 50-25-9322Vvdlvl flowsheetCorey William DO Work Phone: [facility]BGYNStart: 12-09-2024 End: 28-43-2640Hpizck flowsheetCorey William DO Work Phone: [facility]BGYNStart: 12-09-2024 End: 29-88-4614Nlvjvejx flow sheetCorey William DO Work Phone: [facility] OBGYNComment on above:Third trimester ([facility]); 29 weeks gestation of ([facility]); Yeast infectionStart: 12-09-2024 End: 54-95-9258wcnapgmjmlEXUQL YARIELONot AvailableStart: 11-27-2024 End: 48-33-1223bosdfywynbXEAFFAvita Health System Ontario Hospitaltart: 11-25-2024 End: 11-05-5239Sfevbm flowsheetKrselene Steen TABLEAU ANALYST Work Phone: [facility]BGYNStart: 11-25-2024 End: 03-76-0496Umviir flowsheetKrniviaa Enio TABLEAU ANALYST Work Phone: [facility]BGYNStart: 11-25-2024 End: 54-46-4755Heyavhim flow sheetLuna Steen TABLEAU ANALYST Work Phone: [facility] OBGYNComment on above:Second trimester ([facility]); 27 weeks gestation of ([facility]); Evan's diseaseStart: 11-25-2024 End: 21-63-7605ewsxheqvbdNULFLEKH EBERLYNot AvailableStart: 11-24-2024 End: 72-93-4917Koyknkshn Result EncounterGeneric External Data ProviderNOMS External Department UnsolicitedStart: 11-24-2024 End: 83-50-5479Efqllqwba Result EncounterGeneric External Data ProviderNOMS External Department UnsolicitedStart: 11-12-2024 End: 13-10-1055Qefaeovxm Result EncounterGeneric External Data ProviderNOMS External Department UnsolicitedStart: 11-12-2024 End: 97-23-6589Dizlwgrhq Result EncounterGeneric External Data ProviderNOMS External Department UnsolicitedStart: 11-03-2024 End: 20-86-3181Ancoluohf Result EncounterGeneric External Data ProviderNOMS External Department UnsolicitedStart: 11-03-2024 End: 96-24-2562Mosdxuyqk Result EncounterGeneric External Data ProviderNOMS External Department UnsolicitedStart: 10-28-2024 End: 15-48-0594Kdvkzkv encounter procedureAmy Dm ARELLANO Work Phone: [facility] HealthcareStart: 10-28-2024 End: 23-62-3914Mydutnlo flow sheetPretty ARELLANO Work Phone: [facility] OBGYNComment on above:Second trimester ([facility] 23 weeks gestation of ([facility]); Diabetes mellitus screening; STD exposure; Well woman exam with routine gynecological exam; Heart palpitationsStart: 10-28-2024 End: 39-04-6858rmbaaaialfEFT RAMEYNot AvailableStart: 10-28-2024 End: 01-86-5875Tdolnd flowsPlacido ARELLANO Work Phone: [facility]BGYNStart: 10-28-2024 End: 34-09-7630Ienkgn Herson ARELLANO Work Phone: [facility]BGYNStart: 10-28-2024 End: 55-66-3518Dlfadkdez Result EncounterGeneric External Data ProviderNOMS External Department UnsolicitedStart: 10-28-2024 End: 52-82-2865Ghzaudrg Result EncounterLuna Steen NP Work Phone: noms External Department UnsolicitedStart: 10-06-2024 End: 96-75-6017Udxhjjuva Result EncounterCorey William DO Work Phone: noms External Department UnsolicitedStart: 10-06-2024 End: 48-99-3046Cvkqadgot Result EncounterCorey William DO Work Phone: noms External Department UnsolicitedStart: 09-30-2024 End: 18-63-0748Shezshts flow sheetCorey William DO Work Phone: noms BCP OBComment on above:19 weeks gestation of ([facility]); Second trimester ([facility])Start: 09-30-2024 End: 73-04-4139hqzikhxojrEDBPB FAZIONot AvailableStart: 09-28-2024 End: 45-28-0452Mqyudlsnj Result EncounterGeneric External Data ProviderNOMS External Department UnsolicitedStart: 09-28-2024 End: 16-75-4027Unjustjfg Result EncounterGeneric External Data ProviderNOMS External Department UnsolicitedStart: 09-02-2024 End: 24-90-7881Daxnmkkr flow Arsenio ARELLANO Work Phone: [facility] BCP OBComment on above:Second trimester ([facility]); 15 weeks gestation of ([facility]); Screening, , for anatomic survey ([facility])Start: 09-02-2024 End: 61-31-3563vssgsaujdfHTL Magno AvailableStart: 09-02-2024 End: 93-22-6374Cnkwox Herson ARELLANO Work Phone: [facility] BCP OBStart: 09-02-2024 End: 68-51-0750Yhtupp Herson ARELLANO Work Phone: [facility] BCP OBStart: 08-31-2024 End: 76-99-5256Rkikbqhle Result EncounterCorey William DO Work Phone: [facility] External Department UnsolicitedStart: 08-31-2024 End: 88-76-8659Pmjgzqggs Result EncounterCorey William DO Work Phone: [facility] External Department UnsolicitedStart: 08-05-2024 End: 49-39-0133Qbsune flowsheetCorey William DO Work Phone: [facility] BCP OBStart: 08-05-2024 End: 99-77-4314Vgtrpq flowsheetCorey William DO Work Phone: [facility] BCP OBStart: 08-05-2024 End: 09-23-9171Glnybxbl flow sheetCorey William DO Work Phone: [facility] BCP OBComment on above:First trimester ; 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 ; 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[facility])Start: 08-05-2024 End: 40-19-2013appwbigobaJLFMS FAZIONot AvailableStart: 07-18-2024 End: 17-33-2185Hvqagdssm Result EncounterGeneric External Data ProviderNOMS External Department UnsolicitedStart: 07-18-2024 End: 48-65-6797Jxohaucqs Result EncounterGeneric External Data ProviderNOMS External Department UnsolicitedStart: 07-16-2024 End: 93-26-7759Wctgns outpatient visit 5 minutesNoms Bcp Ob William NurseNOMS BCP OBComment on above:GA: 7i1uXfdjj: 07-16-2024 End: 83-42-7281mmmmbmigycBHXHC FAZIONot AvailableStart: 02-26-2024 End: 70-11-6603Vrvhrfi encounter procedureDavid A Pocos DO Work Phone: [facility] NB ORTHOComment on above:S/P reconstruction of ACL of left knee using bone-patellar tendon-bone autograft (Primary Dx)Start: 02-26-2024 End: 03-89-7423vlpmfclnjnNZWRZ A POCOSNot AvailableStart: 02-19-2024 End: 16-65-1880Vqyegn outpatient visit 25 minutesEdjay Payne MD Work Phone: [facility] CI FM 100Comment on above:Subclinical hypothyroidism (CMS/HCC) (Primary Dx); 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CMS/HCC); Cigarette smoker; Non morbid obesity due to excess calories; Postural orthostatic tachycardia syndrome (POTS); Abnormal bleeding in menstrual cycleStart: 02-19-2024 End: 93-37-3294iakwavrdilXDJGCM J HEMEYERNot AvailableStart: 02-19-2024 End: 40-88-7846Ucpeyu Rodriguez Payne MD Work Phone: [facility] CI FM 100Start: 02-19-2024 End: 98-52-3398Xmupza Rodriguez Payne MD Work Phone: [facility] CI FM 100Start: 12-27-2023 End: 43-05-5933jlezvzxaekSkty J Spriggs PT Work Phone: NOIZ FB PTComment on above:Acute pain of left knee (Primary Dx); Status post arthroscopic reconstruction of anterior cruciate ligament of left knee using quadricepstendon autograftStart: 12-27-2023 End: 01-21-4476Qwyqfn flowsheetKyle J Lilo PT Work Phone: [facility] FB PTStart: 12-27-2023 End: 91-43-3733Rhwclb flowsheetKyle J Lilo PT Work Phone: NOHB FB PTStart: 12-24-2023 End: 00-01-5067bymafbsegzZezugfqp Wright BLIND LACER Work Phone: [facility] FB PTComment on above:Acute pain of left knee (Primary Dx); Status post arthroscopic reconstruction of anterior cruciate ligament of left knee using quadricepstendon autograftStart: 12-24-2023 End: 85-14-0734Rllbme Act[facility]ViewsWest [facility] BLIND LACER Work Phone: NOTU FB PTStart: 12-24-2023 End: 12-07-3667Tfuhdd ActiViewsWest [facility] University Health System BLIND LACER Work Phone: NOZU FB PTStart: 12-17-2023 End: 15-87-6047zpfctjuuadPoea J Lilo PT Work Phone: NOXT FB PTComment on above:Acute pain of left knee (Primary Dx); Status post arthroscopic reconstruction of anterior cruciate ligament of left knee using quadricepstendon autograftStart: 12-17-2023 End: 67-06-8199Zmfnom flowsheetKyle J Lilo PT Work Phone: NOMS FB PTStart: 12-17-2023 End: 48-65-1942Ukdoaa flowsheetKyle J Lilo PT Work Phone: NOMS FB PTStart: 12-09-2023 End: 36-38-9673Hygbcr Isabel Schwartz DO Work Phone: [facility] SWS ORTHOAOStart: 12-09-2023 End: 99-78-9157Aelpsvalan Schwartz DO Work Phone: [facility] SWS ORTHOAOStart: 12-09-2023 End: 01-02-2115Icplfjp encounter procedureKelvin Schwartz DO Work Phone: [facility] SWS ORTHOAOComment on above:Left knee injury, initial encounter (Primary Dx)Start: 12-03-2023 End: 47-19-1949chkemyprodFrirqsvo Wright BLIND LACER Work Phone: noms FB PTComment on above:Acute pain of left knee (Primary Dx); Status post arthroscopic reconstruction of anterior cruciate ligament of left knee using quadricepstendon autograftStart: 12-03-2023 End: 26-06-4763Nmzpww [employer] BLIND LACER Work Phone: NOST FB PTStart: 12-03-2023 End: 31-87-9551Ojgpns [employer] BLIND LACER Work Phone: NOEM FB PTStart: 11-19-2023 End: 91-89-7093batrwdlnjwHqgqsr Tattersall PTANOMS FB PTComment on above:Acute pain of left knee (Primary Dx); Status post arthroscopic reconstruction of anterior cruciate ligament of left knee using quadricepstendon autograftStart: 11-19-2023 End: 00-00-0992Qrerlz flowsheetMariah Tattersall PTANOMS FB PTStart: 11-19-2023 End: 27-72-6468Tejtdx flowsheetMariah Tattersall PTANOMS FB PTStart: 11-12-2023 End: 45-20-8722ahnkvrxmdmQxuwqqlq Wright BLIND LACER Work Phone: N[facility] FB PTComment on above:Acute pain of left knee (Primary Dx); Status post arthroscopic reconstruction of anterior cruciate ligament of left knee using quadricepstendon autograftStart: 11-12-2023 End: 93-56-3630Chrktc [employer] BLIND LACER Work Phone: NOTJ FB PTStart: 11-12-2023 End: 94-36-8494Vffemo [employer] BLIND LACER Work Phone: NOMS FB PTStart: 93-62-2368Srv-patient / Non-visitMD Rosalie Payne Work Phone: [facility] Work Phone: Start: 09-02-2023 End: 79-53-6293Ydhqddink to same day surgery centerMD Rosalie Payne Work Phone: [facility] Work Phone: Start: 09-02-2023 End: 89-68-0860zeggnqdcovTD Rosalie Payne Work Phone: [facility] Work Phone: Start: 07-25-2023 End: 40-93-2801qglvpimqffVpuukxpdcGrand Lake [facility] Work Phone: Start: 07-25-2023 End: 77-70-8432Dsnxprf encounter procedureNorthern [facility] Work Phone: Start: 04-23-2023 End: 64-00-0297buvmbgdmrfDbaqh A PocosFacility:FTMCStart: 31-51-9378Qqyyc Jennifer Nagy PT Work Phone: noms FB PTStart: 04-03-2023 End: 02-69-5401nitevbdhlmTdypg A PocosFacility:FTMCStart: 04-03-2023 End: 36-56-2100Czuszam encounter procedureDavid A Pocos [facility] Start: 04-01-2023 End: 56-98-2425kepfntsrcpCxljkz Kristine Other [facility] [employer] Other Start: 63-87-8035Xkmada outpatient visit 15 minutes Destinee PaganLuver[facility] ClydeStart: 05-01-2022 End: 09-83-8422ffzpdcwjcqSF DOC THOMAS .Facility:S0Gvrbk: 08-21-2021 End: 32-84-5448dpjntfevbwNnilox Dymond Other [employer] Other Start: 43-01-9549Sybjlp outpatient visit 15 minutes Carlie ThomasSPIKEG [facility] ClydeStart: 07-26-2021 End: 64-19-8366lwthmnasonJO COREY FAZIO .Facility:F7Ytfxv: 15-32-6326Vnqwoclxx department patient visitBRLUIS Yañez [facility]LEYWAGNERZanesville City Hospitaltart: 05-24-2021 End: 77-95-4262Ccwvsgari department patient visitArtis Yoder Work Phone: [facility] EDComment on above:Contusion of left knee, initial encounter (Primary Dx)Start: 05-11-2021 End: 41-61-0769bkbkblgdvoEajqcxvuj Breault Other [employer] Other Start: 39-33-1970Gzeqaj outpatient visit 15 minutes Adriana Garner [facility] ClydeStart: 05-01-2021(URG) Urgent Care Visit Carlie LewisVinodG [facility] ClydeStart: 05-01-2021 End: 09-65-6981jfzystdqdqTbcciq Dymond Other [employer] Other Start: 04-07-2021 End: 43-61-0207wdzodwjwxjVsnlil Taylor Other [employer] Other Start: 46-68-8002Gktdag outpatient visit 15 minutes Sandeep Holland [facility] ClydeStart: 12-14-2020 End: 42-55-1990Rjklnctwk department patient visitDAVID Bedolla [facility] Hospitaltart: 12-14-2020 End: 05-77-1982Nlpvkjedz department patient visitCiaraseli Dominguez MD Work Phone: [facility] EDComment on above:Tailbone injury, initial encounter (Primary Dx)Start: 09-19-2020 End: 95-81-0485Fvflmqmgs department patient visitAvita Health System [facility] EDComment on above:Closed head injury, initial encounter (Primary Dx)Start: 07-15-2017 End: 56-87-7814HwmpifynusOBSZVI P VARGASCleveland [facility] Centerart: 05-15-2017 End: 95-92-6619IwxxbtfyavWGBETA P VARGASCleveland [facility]: 04-30-2017 End: 69-22-5983CexlzfiwcbENGEEQ P VARGASCtrihealth good samaritan hospitaland [facility]: 04-29-2017 End: 55-07-7865XqtwovqnfwKCARXP P VARGASCtrihealth good samaritan hospitaland [facility]: 03-13-2017 End: 62-76-9519NiaqgkygxtWCKQO AM MURPHYFacility:[facility] Procedures DateProcedureProcedure DetailPerforming ClinicianStart: 83-69-0422XD OB BPP W NON-STRESSCorey William DO Work Phone: Start: 44-65-8290Ebjqt dip stick/tablet rgnt non-auto w/o micrscpAjosé antonio ARELLANO Work Phone: Start: 59-91-1753WD OB BPP W NON-STRESSCorey William DO Work Phone: Start: 23-53-2255Aymuw dip stick/tablet rgnt non-auto w/o micrscpCorey William DO Work Phone: Start: 06-62-2215HL OB BPP W NON-STRESSGeneric External Data ProviderStart: 61-50-9807ZV OB GROWTHGeneric External Data ProviderStart: 81-57-2869KJ OB BPP W NON-STRESSGeneric External Data ProviderStart: 99-56-6422ERP THYROID STIM HORMONECorey William DO Work Phone: Start: 37-47-7411Hqpor dip stick/tablet rgnt non-auto w/o micrscpLuna Steen NP Work Phone: Start: 59-13-3897Tcbyk dip stick/tablet rgnt non-auto w/o micrscpCorey William DO Work Phone: Start: 37-56-7805Mpqcs dip stick/tablet rgnt non-auto w/o Pricilla Steen TABLEAU ANALYST Work Phone: Start: 65-59-8352KM ECHO DOPPLER COMPLETEGeneric External Data ProviderStart: 14-94-6365VQF 12-LEADGeneric External Data Provider Start: 03-77-3731VZJ CBC WITH AUTO DIFFLuna Steen NP Work Phone: Start: 07-38-7057NFJYZQHQB VAGINITIS (HTRX)Luna Steen NP Work Phone: Start: 72-03-8091Jlxuq dip stick/tablet rgnt non-auto w/o Pricilla Steen TABLEAU ANALYST Work Phone: Start: 49-16-8464XZA,APTIMA HPV,AGE GDLNAmy Dm ARELLANO Work Phone: Start: 77-96-8627ND OB CERVICAL LENGTHCorey William DO Work Phone: Start: 47-44-3617Almjp dip stick/tablet rgnt non-auto w/o micrscpCorey William DO Work Phone: Start: 98-47-4144HMJ THYROID STIM HORMONECorey William DO Work Phone: Start: 90-73-2030Znbhu dip stick/tablet rgnt non-auto w/o felicescpAmy Dm ARELLANO Work Phone: Start: 75-36-5679KPE THYROID STIM HORMONEGeneric External Data ProviderStart: 88-10-4678Yjblz dip stick/tablet rgnt non-auto w/o micrscpCorey William DO Work Phone: Start: 15-67-4022EXG TESTCorey William DO Work Phone: Start: 31-31-6408AXS DRUG SCREEN RAPID (URINE)Generic External Data ProviderStart: 95-38-3325Ulwbh dip stick/tablet rgnt non-auto w/o micrscpCorey William DO Work Phone: Start: 33-45-6598Hibmtvrm blood count with white cell differential, automatedEdjay Payne MD Work Phone: Start: 24-37-3773Bnqcxmhgwinje metabolic panelEdjay Payne MD Work Phone: Start: 38-18-6372Qtplihoamerpe antibodyEdjay Payne MD Work Phone: Start: 11-81-6914CpsxofygeyhwuxkybdtjqabqlbLH Rosalie Payne Work Phone: Start: 33-13-7465Pvgrbaz of reconstruction of anterior cruciate ligament tearStatus post arthroscopic reconstruction of anterior cruciate ligament of left knee using quadricepstendon autograftNereyda Vieira BLIND LACER Work Phone: Start: 65-22-3322Adecmkmkwd examination knee 3 views Artis Yoder DO Work Phone: Start: 62-99-8815Qhmey sacrum & coccyx minimum 2 views David Dominguez MD Work Phone: Start: 07-92-3099Df head/brain w/o contrast material Luis Carlos Fragoso PA-C Work Phone: Cyst of ovary (disorder)Myron Marroquin History of operative procedure on kneeS/P reconstruction of ACL of left knee using bone-patellar tendon-bone autograft Myron Marroquin DO Work Phone: History of reconstruction of anterior cruciate ligament tearStatus post arthroscopic reconstruction of anterior cruciate ligament of left knee using quadricepstendon autograftStefano Nagy PT Work Phone: History of reconstruction of anterior cruciate ligament tearStatus post arthroscopic reconstruction of anterior cruciate ligament of left knee using quadricepstendon autograftGretchen Vieira BLIND LACER Work Phone: History of reconstruction of anterior cruciate ligament tearStatus post arthroscopic reconstruction of anterior cruciate ligament of left knee using quadricepstendon autograftKystuart Nagy PT Work Phone: History of reconstruction of anterior cruciate ligament tearStatus post arthroscopic reconstruction of anterior cruciate ligament of left knee using quadricepstendon autograftGretchen Vieira BLIND LACER Work Phone: History of reconstruction of anterior cruciate ligament tearStatus post arthroscopic reconstruction of anterior cruciate ligament of left knee using quadricepstendon autograftGretchen Vieira BLIND LACER Work Phone: History of reconstruction of anterior cruciate ligament tearStatus post arthroscopic reconstruction of anterior cruciate ligament of left knee using quadricepstendon autograftMariah Tattersall BLIND LACER Laparoscopic excision of cyst of left ovaryDavid Pocos Plan of Treatment DateCare ActivityDetailAuthorStart: 39-22-5779Ymqnqbtpz vaccinationInfluenza Vaccine (#1)[facility]OMS HealthcareComment on above:Postponed from 11/16/2024 (Patient Refused)Start: 01-27-2025 End: 13-10-0827Zcmwzpr encounter sflfgtypp14/12/2025 1:40 PM EST Routine [facility] [address] [place], [id number] Doc Thomas, [address] [place] [address] [facility]BGYNStart: 01-20-2025 End: 61-41-8817Lpejctq encounter procedureNOMS Belen OBGYNComment on above: ArrivedStart: 01-05-2025 End: 77-14-1958Iuppmhi encounter procedureNOMS Davenport OBGYNComment on above: ArrivedStart: 12-23-2024 End: 10-67-6693Wecthfu encounter procedureNOMS Davenport OBGYNComment on above: ArrivedStart: 12-23-2024 End: 08-39-3385Luqpqlcqkwet / ancillary services juuxsrxger94/08/2025 1:30 PM EDT Ancillary Procedure [facility] [address] [place] [address] [place] [address] [facility]BGYNStart: 12-09-2024 End: 09-65-2319Qutxgty encounter procedureNOMS Belen OBGYNComment on above: ArrivedStart: 11-25-2024 End: 18-93-8672EI biophysical profile w non stress testUS biophysical profile w non stress test Imaging Routine 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), Expires: 05/25/2025[facility] Work Phone: comment on above:Expected: 11/25/2024 (Approximate), Expires: 05/25/2025Start: 11-25-2024 End: 08-31-6482SL for pregnancyUS OB follow up transabdominal approach Imaging Routine Evan's disease Expected: 11/25/2024, Expires: 03/27/2025NOMS HealthcareComment on above:Expected: 11/25/2024, Expires: 03/27/2025Start: 11-25-2024 End: 74-62-9919Nyolact encounter procedureNOMS [place] OBGYNComment on above: ArrivedStart: 25-44-6757BLYRH-19 Vaccine ( season)COVID-19 Vaccine ()N[facility]S HealthcareStart: 85-24-8622Ybvsagorh vaccinationNOMS HealthcareStart: 10-28-2024 End: 03-66-5296Hfvwbai encounter procedureNOMS BCP OBComment on above:Arrived Start: 10-28-2024 End: lead ECGECG 12 lead unit performed ECG Routine Heart palpitations Expected: 10/28/2024 (Approximate), Expires: 10/28/2025NOMS HealthcareComment on above:Expected: 10/28/2024 (Approximate), Expires: 10/28/2025Start: 10-28-2024 End: 36-86-8934CQM panel - Blood by Automated countCBC Lab Routine Diabetes mellitus screening Expected: 10/28/2024 (Approximate), Expires: 10/28/2025[facility] Work Phone: comment on above:Expected: 10/28/2024 (Approximate), Expires: 10/28/2025Start: 10-28-2024 End: 77-16-3671Pxuwqslgwbbafn 2D completeEchocardiogram 2D complete Echocardiography Routine Heart palpitations Expected: 10/28/2024 (Approximate), Expires: 10/28/2026[facility] HealthcareComment on above:Expected: 10/28/2024 (Approximate), Expires: 10/28/2026Start: 10-28-2024 End: 62-50-0925Zktxjexxfrq of glucose 1 hour after glucose challenge for glucose tolerance testGlucose tolerance, 1 hour Lab Routine Diabetes mellitus screening Expected: 10/28/2024 (Approximate), Expires: 10/28/2025[facility] HealthcareComment on above:Expected: 10/28/2024 (Approximate), Expires: 10/28/2025Start: 09-30-2024 End: 26-13-8307Iqooamv encounter gocamtbku94/16/2025 3:40 PM EDT Routine [facility] [address] [place] [address] Doc Thomas, DO [address] [place] [address] NOMS BCP OBStart: 09-30-2024 End: 02-60-5942Lozrekmucyjt / ancillary services nscehckwry67/16/2025 2:30 PM EDT Ancillary Procedure [facility] [address] [place] [address] N[facility] BCP OBStart: 09-02-2024 End: 63-35-5623Juebktn encounter procedureNOMS BCP OBComment on above:Arrived Start: 09-02-2024 End: 78-63-9692Zccxb fetoprotein, maternalAlpha fetoprotein, maternal Lab Routine Second trimester ([facility]) Expected: 09/02/2024 (Approximate), Expires: 11/02/2024[facility] HealthcareComment on above:Expected: 09/02/2024 (Approximate), Expires: 11/02/2024Start: 09-02-2024 End: 54-51-0473TI for pregnancyUS OB 14+ weeks anatomy scan Imaging Routine Screening, , for anatomic survey ([facility]) Expected: 09/02/2024, Expires: 12/03/2024[facility] Work Phone: comment on above:Expected: 09/02/2024, Expires: 12/03/2024Start: 08-05-2024 End: 70-80-6372Euycibz encounter procedureNOMS [facility] OBComment on above:Arrived Start: 07-16-2024 End: 82-74-0624TCL/RhABO/Rh Lab Routine Missed menses , unspecified gestational age Expected: 07/16/2024 (Approximate), Expires: 07/16/2025[facility] HealthcareComment on above:Expected: 07/16/2024 (Approximate), Expires: 07/16/2025Start: 07-16-2024 End: 63-48-2891Vsyar type and Indirect antibody screen panel - BloodType and screen Lab Routine Missed menses , unspecified gestational age Expected: 07/16/2024 (Approximate), Expires: 07/16/2025[facility] HealthcareComment on above:Expected: 07/16/2024 (Approximate), Expires: 07/16/2025Start: 07-16-2024 End: 42-69-3202Luavj of abuse panel - Urine by Screen methodRapid drug screen, urine Lab Routine , unspecified gestational age Encounter for supervision of normal first in first trimester Expected: 07/16/2024 (Approximate), Expires: 07/16/2025[facility] HealthcareComment on above:Expected: 07/16/2024 (Approximate), Expires: 07/16/2025Start: 07-10-2024 End: 15-37-7508ED Pelvis transvaginalUS OB transvaginal Imaging Routine Missed menses Expected: 07/10/2024, Expires: 10/09/2024[facility] Healthcare Work Phone: comment on above:Expected: 07/10/2024, Expires: 10/09/2024Start: 02-21-2024 End: 81-12-6048Eurdgvs encounter qojkrbypo53/06/2024 8:00 AM EST Office Visit [facility] [address] [place] [id number] Myron Marroquin, [address] [place] [place] [address] N[facility] SWS ORTHOAOStart: 02-19-2024 End: 58-28-1322Ownvrck encounter yaomqozep91/04/2024 3:30 PM EST Office Visit [facility] CI FM [address] [facility] [address] [place] [address] Rosalie Payne MD [address] [place] [address] [address] 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CMS/HCC); Chronic fatigue; Cigarette smoker; Non morbid obesity due to excess caloriesNOMS CI FM 100Comment on above: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CMS/HCC); Chronic fatigue; Cigarette smoker; Non morbid obesity due to excess caloriesStart: 02-19-2024 End: 16-78-0512Wvqwngc, randomInsulin, random Lab Routine Non morbid obesity due to excess calories Postural orthostatic tachycardia syndrome (POTS) Expected: 02/19/2024 (Approximate), Expires: 02/18/2025[facility] Work Phone: Comment on above:Expected: 02/19/2024 (Approximate), Expires: 02/18/2025Start: 01-17-2024 End: 31-66-7606mpljxshaxx10/01/2024 2:30 PM EDT Treatment [facility] JESENIA PT [address] [place] [phone] Stefano Nagy, PT [address] [place], [place] [id number] NOMS FB PTStart: 01-14-2024 End: 59-44-9991bzafjbvcty84/29/2024 3:30 PM EDT Treatment N[facility] FB PT [address] [place] [address] Nereyda Vieira, BLIND LACER [address] [place] [address] NOMS FB PTStart: 01-10-2024 End: 66-49-3925pjtvzoevju05/25/2024 2:30 PM EDT Treatment N[facility] FB PT [address] [place] [address] Stefano Nagy, PT [address] [place] [address] NOMS FB PTStart: 01-07-2024 End: 70-58-5338zlfkadtscr28/22/2024 3:30 PM EDT Treatment N[facility]S FB PT [address] [place] [address] Stefano Nagy, PT [address] [place] [address] NOMS FB PTStart: 01-03-2024 End: 02-11-4558eixtcnfqhy33/18/2024 2:30 PM EDT Treatment NOMS FB PT [address] [place] [address] Stefano Nagy, PT [address] [place] [address] NOMS FB PTStart: 12-31-2023 End: 86-13-3700avwctqwuvv35/15/2024 3:30 PM EDT Treatment NOMS FB PT [address] [place] [address] Jennifer Dozier PTANOMS FB PTStart: 12-27-2023 End: 39-86-1266oukkxvoopmEKVE FB PTComment on above:ArrivedStart: 12-24-2023 End: 66-68-0717rfunwdcfwd90/08/2024 3:00 PM EDT Treatment N[facility] FB PT [address] [place] [address] Nereyda Vieira, BLIND LACER [address] [place] [address] NOMS FB PTStart: 12-17-2023 End: 54-94-6627jyxmqrvesg38/01/2024 3:00 PM EDT Treatment N[facility]S FB PT [address] [place] [phone] Stefano Nagy, PT [address] [place] [address] NOMS FB PTStart: 12-09-2023 End: 73-11-9901Cmadusb encounter procedureNOMS SWS ORTHOAOComment on above: ArrivedStart: 12-03-2023 End: 66-98-3304gfghzfubkf25/17/2024 3:30 PM EDT Treatment N[facility] FB PT [address] [place] [phone] Nereyda Vieira, BLIND LACER [address] [place] [address] ArrivedNOMS FB PT Comment on above:ArrivedStart: 11-19-2023 End: 97-42-8022ilqiwdxceeSNXD FB PTComment on above:Acute pain of left knee (Primary Dx); Status post arthroscopic reconstruction of anterior cruciate ligament of left knee using quadricepstendon autograftStart: 59-71-4473Dxhhstmty vaccination Influenza Vaccine (#1)[facility]S HealthcareStart: 74-67-6790GrtbkqsghKettering Health – Soin Medical Centertart: 05-07-2023 End: 19-04-2722Japttjh encounter zcjcwhaaq88/20/2024 11:10 AM EST Office Visit N[facility] BCP OB [address] [place] [phone] Doc Thomas, DO [address] [place] [address] NOMS BCP OBStart: 05-03-2023 End: 36-02-3700Oantqhk encounter yxyujieiz06/16/2024 11:00 AM EST Office Visit [facility]THOA[facility] [address] [place] [address] [place] [address] Myron Marroquin, DO [address] [facility] [place] [address] [facility] ORTHOAOStart: 04-23-2023 End: 21-96-5022Wxsncol encounter vrfqarvxc77/06/2024 8:00 AM EST Procedure Visit NOMS EXT DEP Myron Marroquin, DO [address] [facility] [place] [address] NOMS EXT DEPStart: 04-22-2023 End: 40-26-3959kuewichiuj58/05/2024 2:30 PM EST Evaluation [facility] JESENIA PT [address] [place] [phone] Stefano Nagy, PT [address] [place] [address] NOMS FB PTStart: 41-51-3805Vtmzinoyn vaccinationInfluenza Vaccine (#1)[facility] HealthcareStart: 60-32-9624AEyO/Tdap/Td vaccine (5 - Td or Tdap)DTaP/Tdap/Td vaccine (5 - Td or Tdap)[facility] HospitalStart: 59-10-9749Fhstgdtcd vaccinationFlu vaccine (#1)[facility] HospitalStart: 70-30-5182Vojtbqxax for malignant neoplasm of cervixAdams County Regional [facility] Center [facility] Start: 36-41-0965BXoO/Tdap/Td vaccine (1 - Tdap)DTaP/Tdap/Td vaccine (1 - Tdap) [facility] Phone: start: 83-92-0718Ynmvxfwzinzw Vaccine: Pediatrics (0 to 5 Years) and At-Risk Patients (6 to 64 Years) (1 of 2 - PCV)Pneumococcal Vaccine: Pediatrics (0 to 5 Years) and At-Risk Patients (6 to 64 Years) (1 of 2 - PCV)[facility] HospitalStart: 46-00-4017Swiyvtofy for Chlamydia trachomatis Chlamydia screenAdams County Regional Medical Center HealthStart: 90-19-3333AQC screeningHIV screenOhiohealth O'Bleness Hospital Start: 07-11-3559Nmttcdhfy vaccine (2 of 2 - 2-dose childhood series)Varicella vaccine (2 of 2 - 2-dose childhood series)[facility] HospitalStart: 04-84-5824QJRLN-19 Vaccine (1)COVID-19 Vaccine (1)[facility] Phone: start: 05-44-5440Gpqrdwljkq ScreenDepression Screen [facility] HospitalStart: 71-43-0055GWQ vaccine (1 - 2-dose series)HPV vaccine (1 - 2- dose series)[facility] HospitalStart: 28-22-2264WBKRD-19 Vaccine (1)COVID-19 Vaccine (1)[facility] HospitalStart: 07-83-4136Yfkrvxoae vaccine (1 of 2 - 2-dose childhood series)Varicella vaccine (1 of 2 - 2-dose childhood series)[facility] Phone: start: 32-16-1658Oqziglyfl C screeningHepatitis C screenMer HealthBacteria identified in Urine by CultureUrine culture Microbiology Routine Missed menses Ordered: 07/16/2024[facility] HealthcareComment on above:Ordered: 07/16/2024BC W Auto Differential panel - BloodCBC and differential Lab Routine Missed menses , unspecified gestational age Ordered: 07/16/2024[facility] HealthcareComment on above:Ordered: 07/16/2024HLAMYDIA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 MD [address] [place] [address] (Fax) PCP - [facility] [employer]06/16/20Team MemberRelationshipSpecialtyStart DateEnd Date Rosalie Payne MD [address] [place] [address] (Fax) PCP - GeneralFamily Medicine07/24/22 Rosalie Payne MD [address] [place] [address] (Fax) PCP - [place] [employer]06/16/20Team MemberRelationshipSpecialtyStart DateEnd Date Rosalie Payne MD [address] [place] [address] (Fax) PCP - GeneralFamily Medicine07/24/22 Rosalie Payne MD [address] [place] [address] (Fax) PCP - [place] [facility]06/16/20Team MemberRelationshipSpecialtyStart DateEnd Rosalie Payne MD [address] [place] [address] (Fax) PCP - Generalmi Medicine07/24/22 Rosalie Payne MD [address] [place] [address] (Fax) PCP - [place] [employer]06/16/20Team MemberRelationshipSpecialtyStart DateEnd Date Rosalie Payne MD [address] [place] [address] (Fax) PCP - GeneralFamily Medicine07/24/22 Rosalie Payne MD [address] [place] [address] (Fax) PCP - [place] [facility]06/16/20Team MemberRelationshipSpecialtyStart DateEnd Date Rosalie Payne MD [address] [place] [address] (Fax) PCP - GeneralFamily Medicine07/24/22 Rosalie Payne MD [address] [place] [address] (Fax) PCP - [facility] [employer]06/16/20Team MemberRelationshipSpecialtyStart DateEnd Date Rosalie Payne MD [address] [place] [address] (Fax) [facility]07/[facility]/22 Rosalie Payne MD [address] [place] [address] (Fax) PCP - [place] [employer]06/16/20Team MemberRelationshipSpecialtyStart DateEnd Date Rosalie Payne MD [address] [place] [address] (Fax) [facility] - [facility]07/24/22 Rosalie Payne MD [address] [place] [address] (Fax) PCP - [place] [employer]06/16/20Team MemberRelationshipSpecialtyStart DateEnd Date Rosalie Payne MD [address] [place] [address] (Fax) PCP - Generalmi Medicine07/24/22 Rosalie Payne MD [address] [place] [address] (Fax) PCP - [employer]06/16/20Team MemberRelationshipSpecialtyStart DateEnd Date Rosalie Payne MD [address] [place] [address] (Fax) PCP - GeneralFamily Medicine07/24/22 Rosalie Payne MD [address] [place] [address] (Fax) PCP - [employer]06/16/20Team MemberRelationshipSpecialtyStart DateEnd Date Rosalie Payne MD [address] [place] [address] (Fax) PCP - GeneralFamily Medicine07/24/22 Rosalie Payne MD [address] [place] [address] (Fax) PCP - [place] [employer]06/16/20Team MemberRelationshipSpecialtyStart DateEnd Date oRsalie Payne MD [address] [place] [address] (Fax) PCP - GeneralFamily Medicine07/24/22 Rosalie Payne MD [address] [place] [address] (Fax) PCP - [employer]06/16/20Team MemberRelationshipSpecialtyStart DateEnd Date Rosalie Payne MD [address] [place] [address] (Fax) PCP - GeneralFamily Medicine07/24/22 Rosalie Payne MD [address] [place] [address] KAT Trinh [facility]06/16/20 Goals (unrecognized section and content) Goals may [...] BE BASED ON THE PRIMARY CLINICAL RECORDS. [facility] [employer] [facility]. provides no warranty or guarantee of the accuracy or completeness of information in this document.
[2025-01-23 08:59] LABS: Thyroid Stimulating Hormone 0.159 uIU/mL (0.358-3.740)
== END 2025-01-23 08:05 | disposition home or self-care (01) ==
LOC: LAB 08:04
PROVIDERS: PCP Family Medicine; Visit Provider Obstetrics & Gynecology
DX: E06.3 Autoimmune thyroiditis (principal)
CPT/HCPCS: 36415; 84443

== ENCOUNTER 2025-01-23 08:29 | Outpatient (OUT) | payer BC, SELFPAY ==
--- OUTSIDE RECORDS SUMMARY | 2024-12-23 13:00 | XMS_ITS | Encounter Summary ---
Author Organization [facility] Address [address] [place] [address] Care Team Providers Care High Density Press Laborer Name Role Phone Danny Schuler MD Primary Care Provider [phone] Danny Schuler MD Unavailable [phone] Reason for Visit * ReasonCommentsRoutine Visit Encounter Details DateTypeDepartmentCare Team (Latest Contact Info)Avqmcrtqjhz08/08/2025 2:00 PM EDTRoutine [facility] [address] [place] [address] Jessica Steen, [place] [address] [place] [address] Third trimester ([facility]); 31 weeks gestation of ([facility]) Social History Tobacco UseTypesPacks/DayYears UsedDateSmoking [...] week12/11/2022How often do you attend alevism or mu-ism services?More than 4 times per year12/11/2022o you belong to any clubs or organizations such as alevism groups, unions, fraCarefx or athletic groups, or school groups?No12/11/2022How often [...] food, housing, medical care, and heating?Somewhat hard 12/11/2022[facility] [place] of Occupational Health - Occupational Stress QuestionnaireAnswerDate RecordedDo you feel stress - tense, restless, nervous, or anxious, or unable to sleep at night because yourmind is troubled all the time - these days?Only a nnqqjy2612/11/2022Exercise Vital SignAnswerDate Recorded On average, how many [...] steady place to sleep or slept in [place] (including now)?No12/11/2022EducationAnswer Date RecordedWhat is the highest level of school you have completed or the highest degree you have received?11th grade12/10/2022Estimated Date of NdxwlxtyZhbequpzRdp56/06/2025ased on last menstrual period of 05/16/2024Sex and Gender InformationValueDate RecordedSex Assigned at XsomvMlmdht87/25/2023 10:10 AM EDTLegal KnnEvvpzm58/15/2023 6:51 PM EDTGender BcvobvlgMbqegb34/25/2023 10:10 AM EDTSexual OrientationNot on filedocumented as of this encounter Last Filed Vital Signs Vital SignReadingTime TakenCommentsBlood Brulamkc794/7012/23/2024 1:57 PM EDT Pulse--Temperature--Respiratory Rate--Oxygen Saturation--Inhaled Oxygen Concentration--Ccznby54.7 kg (171 lb 6.4 oz)12/23/2024 1:57 PM [...] Left 2019 OVARIAN CYST REMOVAL Left 05/20/2020 [facility] William VAGINAL DELIVERY REVIEW OF SYSTEMS [...] nursing note reviewed. Exam conducted with a animal nutritionist present. Vitals: Estimated body mass index is 29.42 kg/m?? as calculated from the following: Height as of 02/26/24: 5' 4 . Weight as of this encounter: 171 lb 6.4 oz. BP: 110/70 Patient's last menstrual period was 05/16/2024. ASSESSMENT & PLAN ICD-10-CM 1. Third trimester ([facility]) Z34.93 2. 31 weeks gestation of ([facility]) Z3A.31 POCT urinalysis dipstick manually [...] Plan of Treatment DateTypeDepartmentCare Team (Latest Contact Info)Hzyzfwpuvqa60/12/2025 1:40 PM ESTRoutine [facility] [address] [place] [address] Doc Thomas DO [address] [place] [place], [place] [address] documented as of this encounter Procedures Procedure NamePriorityDate/TimeAssociated DiagnosisCommentsPOCT URINALYSIS JNMJNYWUMsxypta13/08/2025 2:01 PM EDT 31 weeks gestation of ([facility]) documented in [...] this encounter Visit Diagnoses Diagnosis Third trimester ([facility]) state, incidental 31 weeks gestation of ([facility]) documented in this encounter Care Teams Team MemberRelationshipSpecialtyStart DateEnd Date Danny Schuler MD [address] [facility] [address] [place] [address] PCP - GeneralFamily Medicine07/24/22 Danny Schuler MD [address] [place] [address] PCP - Ziggy Richard06/16/20documented as of this encounter
--- OUTSIDE RECORDS SUMMARY | 2025-01-20 13:50 | XMS_ITS | Encounter Summary ---
Author Organization [facility] Address [address] [place] [address] Care Team Providers Care Cotton Buyer Name Role Phone Danny Schuler MD Primary Care Provider [phone] Danny Schuler MD Unavailable [phone] Reason for Visit * ReasonCommentsRoutine Visit Encounter Details DateTypeDepartmentCare Team (Latest Contact Info)Fsapdwlqxif67/05/2025 1:50 PM ESTRoutine [facility] [address] [facility] [place] [address] Pretty Chaidez PA [address] [facility] [address] [place], [place] [phone] Third trimester ([facility]); 35 weeks gestation of ([facility]) Social History Tobacco UseTypesPacks/DayYears UsedDateSmoking Tobacco: [...] relatives?Once a week12/11/2022How often do you attend orthodoxy or samaritan services?More than 4 times per year12/11/2022o you belong to any clubs or organizations such as orthodoxy groups, unions, fra[employer] or athletic groups, or school groups?No12/11/2022How often [...] food, housing, medical care, and heating?Somewhat hard 12/11/2022[facility] [place] of Occupational Health - Occupational Stress QuestionnaireAnswerDate RecordedDo you feel stress - tense, restless, nervous, or anxious, or unable to sleep at night because yourmind is troubled all the time - these days?Only a uvwwbs1112/11/2022Exercise Vital SignAnswerDate Recorded On average, how many [...] degree you have received?11th grade12/10/2022Estimated Date of UwptzrmaWuretzfqEsu14/06/2025Based on last menstrual period of 05/16/2024Sex and Gender InformationValueDate RecordedSex Assigned at WwzcdXrxhtn76/25/2023 10:10 AM EDTLegal AebJyhcpy26/15/2023 6:51 PM EDTGender WdoikfpoJrashx02/25/2023 10:10 AM EDTSexual OrientationNot on filedocumented as of this encounter Last Filed Vital Signs Vital SignReadingTime TakenCommentsBlood Vifzhpav27/6001/20/2025 2:02 PM EST Pulse--Temperature--Respiratory Rate--Oxygen Saturation--Inhaled Oxygen Concentration--Yqsrkf53.3 kg (174 lb 12.8 oz)01/20/2025 2:02 PM ESTHeight--Body Mass Bpxfc3846/11/2024 3:41 PM ESTdocumented in this encounter Progress [...] Left 2019 OVARIAN CYST REMOVAL Left 05/20/2020 [facility] William VAGINAL DELIVERY REVIEW OF [...] was 05/16/2024. Assessment/Plan ICD-10-CM 1. Third trimester ([facility]) Z34.93 2. 35 weeks gestation of ([facility]) Z3A.35 POCT urinalysis dipstick manually [...] Plan of Treatment DateTypeDepartmentCare Team (Latest Contact Info)Puivfweldmp33/12/2025 1:40 PM ESTRoutine [facility] [address] [facility] [place] [address] WilliamDoc leiva, DO [address] [facility] [place] [address] documented as of this encounter Procedures Procedure NamePriorityDate/TimeAssociated DiagnosisCommentsPOCT URINALYSIS QESAOWQKIeiavwn68/05/2025 2:07 PM EST 35 weeks gestation of ([facility]) documented in this encounter Results * [...] Narrative Authorizing ProviderResult TypeResult StatusPretty IBANEZOINT OF [facility] TEST ENTER/EDIT ORDERABLESFinal Result documented in this encounter Visit Diagnoses Diagnosis Third trimester ([facility]) state, incidental 35 weeks gestation of ([facility]) documented in this encounter Care Teams Team MemberRelationshipSpecialtyStart DateEnd Date Danny Schuler MD [address] [address] PCP - GeneralFamily Medicine07/24/22 Danny Schuler MD [address] [address] PCP - Ziggy Richard06/16/20documented as of this encounter
--- OUTSIDE RECORDS SUMMARY | 2025-01-23 08:31 | XMS_ITS | Clinical Summary ---
Author Organization [facility] Address [address] [place] [address] Care Team Providers Care Front Line Supervisor Name Role Phone Danny Payne MD Primary Care Provider Danny Payne MD Unavailable [phone] Allergies Active AllergyReactionsCriticalityNoted WilrMekzknrrVbbmvdwvwablBviqa84/05/2021 Other Reaction(s): hives NkvanEwkpXbw96/05/2021 Other Reaction(s): Unknown Nesnwhqll78/25/2023 Other Reaction(s): body numbness Medications MedicationSigDispense QuantityRefillsLast FilledStart DateEnd DateStatus ondansetron (Zofran) 4 MG tablet Indications:Nausea and vomiting in ([facility])Take 1 tablet (4 mg) by mouth every 6 (six) hours if needed for nausea or vomiting for up to 30 doses Take 1 tablet by mouth every 6 hours as needed for nausea. 30 tablet 5Active Active Problems ProblemNoted DateDiagnosed DateAbnormal bleeding in menstrual cycle02/19/2024 Status post arthroscopic reconstruction of anterior cruciate ligament of left knee using quadricepstendon fxyattyrr41/23/2024cute pain of left knee04/22/2023 Chronic vlexxmy9512/10/2022igarette phphha3412/10/2022yst of ovary12/10/2022 Gabby's spmkgey5712/10/2022Hypotension determined by jstzfbfbslo82/25/2023 Juvenile osteochondrosis of tibial wbktptzylv66/25/2023Non morbid obesity due to excess skzrgmir26/25/2023Postural orthostatic tachycardia syndrome (POTS) 12/10/2022Subclinical lozedctreifhmy78/25/2023Estimated Date of Delivery XjexnoyaWpz54/06/2025Based on last menstrual period of 05/16/2024 Resolved Problems ProblemNoted DateDiagnosed DateResolved DateOverweight (BMI 25.0-29.9)12/10/2022 02/19/2024 Encounters DateTypeDepartmentCare NpbiCtiqmuoaogz17/07/2025[place] [phone] Sintia Thomas, DO 01/20/2025 1:50 PM [place] [phone] Pretty Chaidez PA Third trimester ([facility]); 35 weeks gestation of ([facility])01/20/2025linisync Result Encounter [facility]OM[facility] External Department Unsolicited Sintia Thomas, DO 01/20/2025ambalan [place] [address] Pretty Chaidez PA 01/11/2025linisync Result Encounter NOMS External Department Unsolicited Sintia Thomas, DO 01/05/2025 1:00 [place] [phone] Sintia Thomas, Third trimester ([facility]); 33 weeks gestation of ([facility])01/05/2025amboo [place] [phone] Sintia Thomas, DO 5Clinisync Result Encounter [facility]OMS External Department Unsolicited Provider, Generic External Data 12/26/2024linisync Result Encounter NOMS External Department Unsolicited Provider, Generic External Data 12/26/2024linisync Result Encounter NOMS External Department Unsolicited Provider, Generic External Data 12/26/2024linisync Result Encounter NOMS External Department Unsolicited Sintia Thomas DO 12/23/2024 2:00 PM EDTRoutine [facility] [place] [facility] [address] [place] [address] Jessica Steen NP Third trimester ([facility]); 31 weeks gestation of ([facility])12/23/2024Refill [facility] [place] [facility] [address] [place] [address] Azalea Schmitz MA Nausea and vomiting in ([facility])12/23/2024amboo flowsheet [facility] [place] [facility] [address] [place] [address] Jessica Steen NP 12/09/2024 2:00 PM EDTRoutine [facility] [place] [facility] [address] [place] [address] Sintia Thomas, Third trimester ([facility]); 29 weeks gestation of ([facility]); Yeast eahqkvggy55/24/2025amboo flowsheet [facility] [place] [facility] [address] [place] [address] Sintia Thomas, 12/01/2024Telephone [facility] [place] [facility] [address] [place] [phone] Azalea Schmitz MA 11/27/2024bstract [facility] [place] [facility] [address] [place] [address] Sintia Thomas, 11/25/2024 1:50 PM EDTRoutine [facility] [place] [facility] [address] [place] [address] Jessica Steen NP Second trimester ([facility]); 27 weeks gestation of ([facility]); Gabby's hwlaojp0311/25/2024amboo flowsheet [facility] [place] [facility] [address] [place] [phone] Jessica Steen NP 11/24/2024linisync Result Encounter NOMS External Department Unsolicited Provider, Generic External Data 11/19/2024Telephone [facility] [place] [facility] [address] [place] [phone] Janet Narayanan MA 11/12/2024linisync Result Encounter NOMS External Department Unsolicited Provider, Generic External Data 11/06/2024Orders Only [facility] [place] [facility] [address] [place] [address] Coretta Cardenas LPN 11/05/2024Telephone [facility] [place] [facility] [address] [place] [phone] Azalea Schmitz MA 11/04/2024Telephone [facility] [place] [facility] [address] [place] [phone] Azalea Schmitz MA 11/03/2024linisync Result Encounter NOMS External Department Unsolicited Provider, Generic External Data 11/03/2024Telephone [facility] [place] [facility] [address] [place] [phone] Azalea Schmitz MS 10/28/2024 2:30 PM EDTRoutine [facility] [place] [facility] [address] [facility] [place] [address] Pretty Chaidez PA Second trimester ([facility]); 23 weeks gestation of ([facility]); Diabetes mellitus screening; STD exposure; Well woman exam with routine gynecological exam; Heart yqwwpulfnwgh56/13/2025linisync Result Encounter NOMS External Department Unsolicited Provider, Generic External Data 10/28/2024External Result Encounter [facility]OM[facility] External Department Unsolicited Jessica Steen NP 10/28/2024amboo flowsheet [facility] [place] [facility] [address] [place] [address] [place] [address] Pretty Chaidez PA from Last 3 Months Immunizations ImmunizationAdministration DatesNext DueDTaP / HiB / IPV1999,1999 DTaP / Hib03/26/2000Hep A, ped/adol, 2 dose03/31/2012,08/31/2011Hep B, Adolescent or Nsvdzrzqd27/27/2001,1999,1999Hep B, adult11/12/2016Hib (HbOC)09/11/2000Hib / Hep B009/11/2000IPV09/11/2000MMR09/11/2000Meningococcal KRM7S8011/12/2016Pneumococcal Conjugate PCV 7003/26/20009144Hykf11/15/2012Varicella 08/31/2011 Family History Medical HistoryRelationNameCommentsNo Known ProblemsBrotherHyperlipidemia [...] week12/11/2022How often do you attend synagogue or episcopal services?More than 4 times per year12/11/2022o you belong to any clubs or organizations such as synagogue groups, unions, fraMobiotics or athletic carmen ups, or school groups?No12/11/2022How often do you attend meetings of the clubs or organizations you belong to?Never12/11/2022re you , , , , never , or living with a partner?Nyzsfuo8312/11/2022 AUDIT-CAnswerDate RecordedQ1: How often do you have [...] food, housing, medical care, and heating?Somewhat hard12/11/2022 [place] [employer] - Occupational Stress Questionnaire AnswerDate RecordedDo you feel stress - tense, restless, nervous, or anxious, or unable to sleep at night because yourmind is troubled all the time - these days? Only a ljjzgj4412/11/2022Exercise Vital SignAnswerDate RecordedOn average, how many days [...] steady place to sleep or slept in [facility] (including now)?No12/11/2022EducationAnswerDate RecordedWhat is the highest level of school you have completed or the highest degree you have received?11th grade12/10/2022Estimated Date of DeliveryCommentsYes 5Based on last menstrual period of 05/16/2024Sex and Gender Information ValueDate RecordedSex Assigned at DhoceYenmxx18/25/2023 10:10 AM EDTLegal Sex Qehwzt7105/30/2022 6:51 PM EDTGender PbxekhidKfcvsf53/25/2023 10:10 AM EDTSexual OrientationNot on file Last Filed Vital Signs Vital SignReadingTime TakenCommentsBlood Mnvjvzyd41/6011 2:02 PM EST Fbjqv5831/06/2023 3:26 PM FHIHydrhlgdqcs56.4 ??C (97.5 ??F)05/03/2023 11:22 AM ESTRespiratory Rate--Oxygen Kshhxevbhw21%02/19/2024 3:26 PM ESTInhaled Oxygen Concentration--Myuogz14.3 kg (174 lb 12.8 oz)01/20/2025 2:02 PM CIBJgychq300.6 cm (5' 4 )02/26/2024 3:41 PM ESTBody Mass Taehv2751/11/2024 3:41 PM EST Plan of Treatment DateTypeDepartmentCare Team (Latest Contact Info)Mwinwxtwpky51/12/2025 1:40 PM ESTRoutine [facility] [place] [facility] [address] [place] [address] Sintia Thomas DO [address] [facility] [address] [place] [address] Health MaintenanceDue DateLast DoneCommentsPneumococcal Vaccine: Pediatrics (0 to 5 Years) and At-Risk Patients (6 to 64 Years) (1 of 2 - PCV)06/09/2018 03/26/2000COVID-19 Vaccine (1 - season)2024Influenza Vaccine (#1) 2025Postponed from 11/16/2024 (Patient Refused) Procedures Procedure NamePriorityDate/TimeAssociated DiagnosisCommentsUS OB BPP W NON-CHJYRI5301/20/2025 5:10 PM EST POCT URINALYSIS WUCBRUWQIzwqtrf09/05/2025 2:07 PM EST 35 weeks gestation of ([facility]) US OB BPP W NON-HXJDBQ2101/11/2025 9:15 PM EDT POCT URINALYSIS FNBEWAVDKnqhgqq16/21/2025 1:04 PM EDT 33 weeks gestation of ([facility]) US OB BPP W NON-EUZRYG9901/02/2025 3:02 PM EDT US OB BVVAIX2712/26/2024 11:31 AM EDT US OB BPP W NON-ISDWEX5912/26/2024 11:19 AM EDT ALL THYROID STIM DOFOBNSCdaifzq46/11/2025 8:13 AM EDT POCT URINALYSIS QFJRSOWYEvltmpm15/08/2025 2:01 PM EDT 31 weeks gestation of ([facility]) POCT URINALYSIS GPNXCOQPLjuycrn87/24/2025 2:14 PM EDT Third trimester ([facility]) POCT URINALYSIS KNRRIKDXPgjritu94/10/2025 3:33 PM EDT Second trimester ([facility]) CA ECHO DOPPLER HFSIYMPG88/09/2025 4:39 PM EDT ECG 12-LEAD11/12/2024 12:06 PM EDT ALL THYROID STIM LHXTWYYJjyihrg49/19/2025 4:00 PM EDT GLUCOSE 1 HAZARvsxkwo02/19/2025 4:00 PM EDT ALL CBC WITH AUTO DCGOGlcftsx82/19/2025 4:00 PM EDT RECURRENT VAGINITIS (HTRX)Gxoqvpw4410/28/2024 4:48 PM EDT POCT URINALYSIS RMUNBWEMZsbhmzv62/13/2025 2:43 PM EDT Second trimester ([facility]) IGP,APTIMA HPV,AGE EMTNLdtphvb75/13/2025 2:25 PM EDT PAP NYEOPBxjozgx63/13/2025 12:00 AM EDTfrom Last 3 Months Results * US OB BPP W NON-STRESS (01/20/2025 5:10 PM EST) Only the most recent of4 resultswithin the time period is included. Anatomical RegionLateralityModalityOtherSpecimen (Source)Anatomical Location / LateralityCollection Method / VolumeCollection TimeReceived Time01/20/2025 5:10 PM EST Narrative 01/20/2025 5:13 PM EST The [facility] ?[address] ? [place] [address] ? Ultrasound Report ? Signed ? Patient: ALETA CASTRO N ?MR#: [id number] ?? : 2000 ?Acct:[id number] ?? Age/Sex: 24 / F ?ADM Date: 01/20/25 ?? Loc: FBCO ? Attending Dr: Sintia Thomas D.O. ? Ordering Physician: Sintia Thomas D.O. ?? Date of Service: 01/20/25 ?? Procedure(s): US OB BPP w non-stress ?? Accession Number(s): [id number] ? cc: Sintia Thomas D.O.; DANNY PAYNE ? The [facility] ? [address] ? [place] [address] ? Patient Name: ?? ALETA CASTRO ? MRN: [facility]:[id number] ? date: 2000 ?Sex: F ?? Assigned Patient Location: FBC ?? Current Patient Location: ? Accession/Order Number: [id number] ?? Exam Date: 01/20/2025 ??15:17 ?Report Date: [...] Dictation Location: RADIO-PC-20 ? Electronically authenticated by: [id number] ??Y ?? Date: 01/20/2025 ??17:10 ? Dictated By: ?Loi Ellington D.O. ? Signed By: ?11/05/ 1713 ? DD/DT: /05/ 1710 ? TD/TT: ? Application Packager: Procedure Note Radiology, Radiologist, - 01/20/2025 [place] [address] Ultrasound Report Signed Patient: ALETA CASTRO NMR#: [id number] : 2000Acct:[id number] Age/Sex: 24 / FADM Date: 01/20/25 Loc: FBCO Attending Dr: Sintia Thomas D.O. Ordering Physician: Sintia Thomas D.O. Date of Service: 01/20/25 Procedure(s): US OB BPP w non-stress Accession Number(s): [id number] cc: Sintia Thomas D.O.; DANNY PAYNE The [place] [id number] Patient Name: ALETA CASTRO MRN: [facility]:[id number] date: 2000 Sex: F Assigned Patient Location: [facility] Current Patient Location: Accession/Order Number: [id number] Exam Date: 01/20/2025 15:17 Report Date: 01/20/2025 [...] Ellington M.D. 01/20/2025 5:10 PM Dictation Location: [place] [address] Electronically authenticated by: [id number] Y Date: 7:10 Dictated By: Loi Ellington D.O. Signed By:01/20/251712 DD/ 09 TD/TT: Application Packager: Authorizing ProviderResult TypeResult StatusCorey William DOCLINISYNC IMAGINGFinal [...] / Laterality Collection Method / VolumeCollection TimeReceived QhjbLtmdj13/05/2025 2:07 PM EST Narrative Authorizing ProviderResult TypeResult StatusAmy [facility] OF CARE TEST ENTER/EDIT ORDERABLESFinal Result * US OB GROWTH (12/26/2024 11:31 AM EDT)Anatomical RegionLateralityModalityOther Specimen (Source)Anatomical Location / LateralityCollection Method / Volume Collection TimeReceived Time12/26/2024 11:31 AM EDT Narrative 12/26/2024 11:33 AM EDT The [facility] ?[address] ? [place] [address] ? Ultrasound Report ? Signed ? Patient: RAKELALETA N ?MR#: [id number] ?? : 2000 ?Acct:[id number] ?? Age/Sex: 24 / F ?ADM Date: 12/26/24 ?? Loc: US ? Attending Dr: Sintia Thomas D.O. ? Ordering Physician: Sintia Thomas D.O. ?? Date of Service: 12/26/24 ?? Procedure(s): US OB growth ?? Accession Number(s): [id number] ? cc: Sintia Thomas D.O.; DANNY PAYNE ? The [facility] ? [address] ? [place] [address] ? Patient Name: ?? ALETA CASTRO ? MRN: [facility]:[id number] ? date: 2000 ?Sex: F ?? Assigned Patient Location: ?? Current Patient Location: ? Accession/Order Number: [id number] ?? Exam Date: 12/26/2024 ??09:00 ?Report Date: [...] 52 bpm. ? motion documented by the theatre arts professor.. ? Estimated weight 2093 g 71.4%. ? [...] M.D. ??12/26/2024 11:31 AM ? Dictation Location: [facility]- ? Electronically authenticated by: [id number] ??Y ?? Date: 12/26/2024 ??11:31 ? Dictated By: ?Deshaun Aguilar M.D. ? Signed By: ?12/26/24 1133 ? DD/ 1131 ? TD/TT: ? Application Packager: Procedure Note Radiology, Radiologist, MD - 12/26/2024 [place] [address] Ultrasound Report Signed Patient: ALETA CASTRO#: [id number] : 2000Acct:[id number] Age/Sex: 24 / FADM Date: 12/26/24 Loc: US Attending Dr: Sintia Thomas D.O. Ordering Physician: William,Sintia D.O. Date of Service: 12/26/24 Procedure(s): US OB growth Accession Number(s): [id number] cc: Sintia Thomas D.O.; DANNY PAYNE [address] [address] Patient Name: ALETA CASTRO MRN: [id number] date: 2000 Sex: F Assigned Patient Location: US Current Patient Location: Accession/Order Number: [id number] Exam Date: 12/26/2024 09:00 Report Date: 12/26/2024 11:31 At the request of: SINTIA THOMAS DO Procedure: US OB growth Obstetric ultrasound for growth INDICATION: Gabby's disease FINDINGS: Single live anterior cephalic presentationlongitudinal lie. Amniotic fluid index 12.4 cm between the gestational age fifth chk98ud percentile. Largest pocket of fluid 5.1 cm. heart rate 1 52 bpm. motion documented by the theatre arts professor.. Estimated weight 2093 g 71.4%. Gestation age 32 weeks and 0 days. Biparietal diameter 7.93 m. Head circumference 30.7 cm. Otherwise the 10.6 cm. Abdominal circumference 28.9 cm. Femur length 6.4 cm. US/US OB growth IMPRESSION: Single live intrauterine of approximately 30 weeks Impression dictated by: Deshaun Aguilar M.D. 12/26/2024 11:31 AM Dictation Location: [place] [address] Electronically authenticated by: [id number] Y Date: 1:31 Dictated By: Deshaun Aguilar M.D. Signed By:12/26/24 1133 DD/ 1131 TD/TT: Application Packager: Authorizing ProviderResult TypeResult StatusGeneric External Data Provider [...] EDT Narrative 11/24/2024 4:40 PM EDT The [facility] ?[address] ? [place] [address] ? Cardiology Report ? Signed ? Patient: ALETA CASTRO ?MR#: [id number] ?? : 2000 ?Acct:[id number] ?? Age/Sex: 24 / F ?ADM Date: 11/12/24 ?? Loc: CARD ? Attending Dr: Jessica Steen ? Ordering Physician: Jessica Steen ?? Date of Service: 11/12/24 ?? Procedure(s): CA echo doppler complete ?? Accession Number(s): [id number] ? cc: Jessica Steen; DANNY PAYNE ? Patient Name: ? [facility] ? MR#: [id number] ? : 2000 ? Exam Date: 11/12/2024 [...] 1640 ? DD/ 1639 ? TD/TT: ? Application Packager: Procedure Note Radiology, Radiologist, MD - 11/24/2024 [place] [address] Cardiology Report Signed Patient: ALETA CASTRO NMR#: [id number] : 2000Acct:[id number] Age/Sex: 24 / FADM Date: 11/12/24 Loc: CARD Attending Dr: Jessica Steen Ordering Physician: Jessica Steen Date of Service: 11/12/24 Procedure(s): CA echo doppler complete Accession Number(s): [id number] cc: Jessica Steen; DANNY PAYNE Patient Name: ALETA CASTRO MR#: [id number] : 2000 Exam Date: 11/12/2024 Ordering Doctor: JESSICA STEEN [facility] ECHOCARDIOGRAM REPORT PROCEDURE: CA ECHO DOPPLER [...] M.D. Signed By:11/24/24 1640 DD/ 1639 TD/TT: Application Packager: Authorizing ProviderResult TypeResult StatusGeneric External Data Provider CLINISYNC IMAGINGFinal Result * ECG 12-LEAD (11/12/2024 12:06 PM EDT)Anatomical RegionLateralityModalityOther Specimen (Source)Anatomical Location / LateralityCollection Method / Volume Collection TimeReceived Time11/12/2024 12:06 PM EDT Narrative 11/13/2024 1:34 PM EDT The [facility] ?[address] ? [place] [address] ? Electrocardiograph Report ? Signed ? Patient: ALETA CASTRO N ?MR#: [id number] ?? : 2000 ?Acct:[id number] ?? Age/Sex: 24 / F ?ADM Date: 11/12/ ?? Loc: CARD ? Attending Dr: Jessica Steen ? Ordering Physician: Jessica Steen ?? Date of Service: 11/12/ ?? Procedure(s): ECG 12 lead ?? Accession Number(s): [id number] ? cc: ?The [facility] ? Test Date: ?2024-11-12 ?? Pat Name: ? SUMMER RAKEL ?Department: ? Room: ? - ?? Gender: ? Female ? Telephone Service Representative: ? : ?2000 ? Requested By: JESSICA STEEN ?? Order Number: [id number] ?Reading MD: ?? Samar Samantha ? Measurements ?? Intervals ?[place] ? Rate: ? 79 ? P: ?42 ?? VA: ? 158 ?QRS: ?81 ?? QRSD: ? [...] ? DD/DT: 11/12/ 1206 ? TD/TT: ? Application Packager: Procedure Note Radiology, Radiologist, - 11/13/[address] [address] Electrocardiograph Report Signed Patient: ALETA CASTRO#: [id number] : 2000Acct:[id number] Age/Sex: 24 / FADM Date: 11/12/24 Loc: CARD Attending Dr: Jessica Steen Ordering Physician: Jessica Steen Date of Service: 11/12/24 Procedure(s): ECG 12 lead Accession Number(s): [id number] cc: The [facility] Test Date: 2024-11-12 Pat Name: ALETA CASTRO Department: Room: - Gender: Female Telephone Service Representative: : 2000 Requested By: JESSICA STEEN Order Number: [id number] Reading MD: Bibi Singh Measurements Intervals [place] Rate: 79 P: 42 VA: 158 QRS: 81 QRSD: 90 T: 41 QT: 353 QTc: 405 Interpretive Statements SINUS RHYTHM Normal EKG No previous ECG available for comparison Electronically Signed On 11-13-2024 13:34:21 EDT by Bbii Singh Dictated By: Bibi Singh M.D. Signed By:11/13/24 1334 11/13/24 1334 DD/ 1206 TD/TT: Application Packager: Authorizing ProviderResult TypeResult StatusGeneric External Data Provider CLINISYNC IMAGINGFinal Result * GLUCOSE 1 HOUR (11/03/2024 4:00 PM EDT)ComponentValueRef RangeTest Method Analysis TimePerformed AtPathologist SignatureGLUCOSE 1 MDOO979<130 mg/dLTBH Specimen (Source)Anatomical Location / LateralityCollection Method [...] - 35.2 g/dLTBHTBH RDW12.711.0 - 15.0 %TBHTBH HVP084269 - 450 10 3/uLTBHTBH MPV9.79.5 - 13.5 [...] PM EDT)ComponentValueRef RangeTest MethodAnalysis TimePerformed AtPathologist SignatureATOPOBIUM RDOEWIO594.961 - 24.689 ppm10/30/2024 7:27 AM EDTHealthTrackRx at LabPortATOPOBIUM VAGINAENot Vbjatgxu14.961 - 24.689 ppm10/30/2024 7:27 AM EDTHealthTrackRx at LabPortBVAB 2,3 (BACTERIAL VAGINOSIS ASSOCIATED BACTERIA 2, 3); MOBILUNCUS VVI151.961 - 24.689 ppm10/30/2024 7:27 AM EDTHealthTrackRx at LabPortBVAB 2,3 (BACTERIAL VAGINOSIS ASSOCIATED BACTERIA 2, 3); MOBILUNCUS SPPNot Gbrzqeww18.961 - 24.689 ppm10/30/2024 7:27 AM EDTHealthTrackRx at LabPortCANDIDA ALBICANS, PARAPSILOSIS, IHSWFWWHAV844.000 - 30.347 ppm10/30/2024 7:27 AM EDT [facility] at LabPortCANDIDA ALBICANS, PARAPSILOSIS, TROPICALISNot Detected 23.000 - 30.347 ppm10/30/2024 7:27 AM EDTHealthTrackRx at LabPortCANDIDA QAQLNTFX280.000 - 31.618 ppm10/30/2024 7:27 AM EDTHealthTrackRx at LabPort RICKEY GLABRATANot Wqfteknp60.000 - 31.618 ppm10/30/2024 7:27 AM EDT [facility] at LabPortCANDIDA BZIBSO177.000 - 30.873 ppm10/30/2024 7:27 AM EDTHealthTrackRx at LabPortCANDIDA KRUSEINot Jqpdwzwn45.000 - 30.873 ppm 10/30/2024 7:27 AM EDTHealthTrackRx at LabPortCHLAMYDIA ECLCFHNKATU810.000 - 31.586 ppm10/30/2024 7:27 AM EDTHealthTrackRx at LabPortCHLAMYDIA TRACHOMATIS Not Mucwflng13.000 - 31.586 ppm10/30/2024 7:27 AM EDTHealthTrackRx at LabPort GARDNERELLA HJYMUACLG237.961 - 24.689 ppm10/30/2024 7:27 AM EDTHealthTrackRx at LabParkview Regional Medical CenterGARDNERELLA VAGINALISNot Keseivrf13.961 - 24.689 ppm10/30/2024 7:27 AM EDTHealthTrackRx at LabPortMEGASPHAERA (TYPES 1, 2)019.961 - 24.689 ppm 10/30/2024 7:27 AM EDTHealthTrackRx at LabPortMEGASPHAERA (TYPES 1, 2)Not Uqybirqc64.961 - 24.689 ppm10/30/2024 7:27 AM EDTHealthTrackRx at LabPort NEISSERIA HXBKQYQWSZC075.000 - 32.587 ppm10/30/2024 7:27 AM EDTHealthTrackRx at LabParkview Regional Medical CenterNEISSERIA GONORRHOEAENot Twxiiaid50.000 - 32.587 ppm10/30/2024 7:27 AM EDTHealthTrackRx at LabPortTRICHOMONAS AZZCHWOTU762.000 - 31.995 ppm 10/30/2024 7:27 AM EDTHealthTrackRx at LabPortTRICHOMONAS VAGINALISNot Sjvonsvb90.000 - 31.995 ppm10/30/2024 7:27 AM EDTHealthTrackRx at LabPort MYCOPLASMA EWSXAWAZYF969.961 - 24.689 ppm10/30/2024 7:27 AM EDTHealthTrackRx at LabPortMYCOPLASMA GENITALIUMNot Vxvaizsn51.961 - 24.689 ppm10/30/2024 7:27 AM EDTHealthTrackRx at LabPortSpecimen (Source)Anatomical Location / LateralityCollection Method / VolumeCollection TimeReceived TimeTissue 10/28/2024 4:48 PM EDT10/30/2024 2:18 AM EDT Narrative Authorizing ProviderResult TypeResult StatusJessica Steen NPLAB BLOOD ORDERABLESFinal ResultPerforming OrganizationAddressCity/State/ZIP CodePhone Number [facility] [address] [facility] [address] [place] [address] * IGP,APTIMA HPV,AGE GDLN (10/28/2024 2:25 PM [...] ?[facility] ?? [address] [place] ??[phone] ?? Ludy Hector MD, IGP, RFX APTIMA HPV ASCUNote.TBHComment: ?? TESTS ? RESULT ??FLAG ??UNITS ?REF RANGE ??LAB DIAGNOSIS: ?02 ?? NEGATIVE FOR INTRAEPITHELIAL LESION OR MALIGNANCY. ?? THIS SPECIMEN WAS RESCREENED PART OF OUR [employer] PROGRAM. Specimen adequacy: ?02 ?? Satisfactory for evaluation. No endocervical component is identified. Performed by: ? 02 ?? Brionna Mello Traffic I Manager (ASCP) QC reviewed by: ? 02 ?? Polina Simons, Traffic I Manager . ? 02 Note: ? Note ?02 [...] High,A-Abnormal,AA-Critical Abnormal Performed at: 02 WB ?[facility] [place] ?? [address] [place], [place] ??[address] ?? Ludy Hector MD, Performed at: ??=G - [facility] [place] [address] [place], [place] ??[id number] Supply Crib Attendant: Ludy Hector MD, Phone: ??[phone] Performed at: ??WB - [facility] [place], [place] ??[id number] Supply Crib Attendant: Ludy Hector MD, Phone: ??[phone] Specimen (Source)Anatomical Location / LateralityCollection Method / [...] Teams Team MemberRelationshipSpecialtyStart DateEnd Danny Payne MD [address] [place] [id number] PCP - GeneralFamily Medicine07/24/22 Danny Payne MD [address] [address] [facility] - [facility]06/16/20
--- OUTSIDE RECORDS SUMMARY | 2025-01-23 08:31 | XMS_ITS | Encounter Summary ---
Author Organization [facility] Address [address] [place] [address] Care Team Providers Care Medart Operator Name Role Phone Danny Payne MD Primary Care Provider [phone] Danny Payne MD Unavailable [phone] Encounter Details DateTypeDepartmentCare Team (Latest Contact Info)Xydrhccsooj68/27/2025Clinisync Result Encounter [facility] External Department Unsolicited Sintia Thomas, DO [address] [place] [id number] Social History Tobacco UseTypesPacks/DayYears UsedDateSmoking Tobacco: Some [...] week12/11/2022How often do you attend rastafari or anglican services?More than 4 times per year12/11/2022o you belong to any clubs or organizations such as rastafari groups, unions, fraMind Lab or athletic groups, or school groups?No12/11/2022How often [...] food, housing, medical care, and heating?Somewhat hard 12/11/2022[facility] [place] of Occupational Health - Occupational Stress QuestionnaireAnswerDate RecordedDo you feel stress - tense, restless, nervous, or anxious, or unable to sleep at night because yourmind is troubled all the time - these days?Only a gdmmzq1612/11/2022Exercise Vital SignAnswerDate Recorded On average, how many [...] degree you have received?11th grade12/10/2022Estimated Date of FhmxkzufTanndxwvKfd11/06/2025Based on last menstrual period of 05/16/2024Sex and Gender InformationValueDate RecordedSex Assigned at NlpvpKqhevc97/25/2023 10:10 AM EDTLegal IwqLquejb31/15/2023 6:51 PM EDTGender MfcfhrqkFrnlih82/25/2023 10:10 AM EDTSexual OrientationNot on filedocumented as of this encounter Plan of Treatment DateTypeDepartmentCare Team (Latest Contact Info)Bkxzcgzbpim58/12/2025 1:40 PM ESTRoutine [facility] [address] [place] [phone] Sintia Thomas DO [address] [place] [address] documented as of this encounter Procedures Procedure NamePriorityDate/TimeAssociated DiagnosisCommentsUS OB BPP W NON-RQOKGZ3301/11/2025 9:15 PM EDT documented in this encounter Results * US OB BPP W NON-STRESS (01/11/2025 9:15 PM EDT)Anatomical Region LateralityModalityOtherSpecimen (Source)Anatomical Location / Laterality Collection Method / VolumeCollection TimeReceived Time01/11/2025 9:15 PM EDT Narrative 01/11/2025 9:18 PM EDT [facility] ?[address] ? [place] [address] ? Ultrasound Report ? Signed ? Patient: ALETA CASTRO ?MR#: [id number] ?? : 2000 ?Acct:[id number] ?? Age/Sex: 24 / F ?ADM Date: 01/11/25 ?? Loc: US ? Attending Dr: Sintia Thomas D.O. ? Ordering Physician: Sintia Thomas D.O. ?? Date of Service: 01/11/25 ?? Procedure(s): US OB BPP w non-stress ?? Accession Number(s): [id number] ? cc: Sintia Thomas D.O.; DANNY PAYNE ? [facility] ? [address] ? [place] [address] ? Patient Name: ?? ALETA Acevedo RAKEL ? MRN: [facility]:[id number] ? date: 2000 ?Sex: F ?? Assigned Patient Location: [facility] ?? Current Patient Location: ? Accession/Order Number: [id number] ?? Exam Date: 01/11/2025 ??15:03 ?Report Date: [...] Dictation Location: RADIO-PC-29 ? Electronically authenticated by: [id number] ??Y ?? Date: 01/11/2025 ??21:15 ? Dictated By: ?Deshaun Aguilar M.D. ? Signed By: ?01/11/ 2118 ? DD/ ? TD/TT: ? Aging Department Supervisor: Procedure Note Radiology, Radiologist, - 01/11/2025 [place] [address] Ultrasound Report Signed Patient: ALETA CASTRO NMR#: [id number] : 2000Acct:[id number] Age/Sex: 24 / FADM Date: 01/11/25 Loc: US Attending Dr: Sintia Thomas D.O. Ordering Physician: Sintia Thomas D.O. Date of Service: 01/11/25 Procedure(s): US OB BPP w non-stress Accession Number(s): [id number] cc: Sintia Thomas D.O.; DANNY PAYNE [place] [address] Patient Name: ALETA CASTRO MRN: [id number] date: 2000 Sex: F Assigned Patient Location: [facility] Current Patient Location: Accession/Order Number: [id number] Exam Date: 01/11/2025 15:03 Report Date: 01/11/2025 21:15 At the request of: SINTIA THMOAS DO Procedure: US OB BPP w non-stress Ultrasound biophysical profile INDICATION: Gabby's disease. COMPARISON: 01/02/2025 FINDINGS: LYNN 15.6 cm. 8/8 score biophysical profile. Fetus is cephalic position with heart rate 141 beats per minutes. US/US OB BPP w non-stress Impression: 8 out of 8 score biophysical profile. Impression dictated by: Deshaun Aguilar M.D. 01/11/2025 9:15 PM Dictation Location: [place] [address] Electronically authenticated by: [id number] Y Date: 1:15 Dictated By: Deshaun Aguilar M.D. Signed By:01/11/252117 DD/ 14 TD/TT: Aging Department Supervisor: Authorizing ProviderResult TypeResult StatusCorey William DOCLINISYNC IMAGINGFinal Result documented in this encounter Visit Diagnoses Not on filedocumented in this encounter Care Teams Team MemberRelationshipSpecialtyStart DateEnd Date Danny Payne MD [address] [place] [address] [facility] - [facility] Danny Payne MD [address] [place] [address] PCP - Ziggy [facility]06/16/20documented as of this encounter
--- OUTSIDE RECORDS SUMMARY | 2025-01-23 08:31 | XMS_ITS | Clinical Summary ---
Author Organization [facility] Address [address] [place] [address] Care Team Providers Care Hospital Social Worker Name Role Phone Unavailable Primary Care Provider Unavailabl e Allergies Active AllergyReactionsCriticalityNoted PogmHlkgdyxmBfoftbqyzfmtAbpim19/05/2021 Other Reaction(s): hives ZfjjvZoynEbi08/05/2021 Other Reaction(s): Unknown LogkxzsbvPtquyes06/25/2023 Other Reaction(s): body numbness Medications MedicationSigDispense QuantityRefillsLast FilledStart DateEnd DateStatus ondansetron ODT (Zofran-ODT) 4 mg disintegrating tablet Take 4 mg by mouth if needed.Active no.37/iron/folic acid (PRENATA ORAL) Take by mouth in the morning.Active Active Problems ProblemNoted DateDiagnosed Date28 weeks gestation of zogizussu98/14/2025bnormal bleeding in menstrual cycle02/19/2024Status post arthroscopic reconstruction of anterior cruciate ligament of left knee using quadricepstendon autograft 05/10/2023cute pain of left knee4Chronic tneqjfm8812/10/2022igarette msomja2312/10/2022yst of ovary12/10/2022Hashimoto's zalictq7812/10/2022Hypotension determined by gliskrtngnk60/25/2023Juvenile osteochondrosis of tibial tuberosity 12/10/2022Non morbid obesity due to excess nvkpqlip70/25/2023ostural orthostatic tachycardia syndrome (POTS)12/14/20185515Iaeqllcsvce17/15/2019Syncope and hatqumbe27/15/2019CommentsYes Encounters DateTypeDepartmentCare QkryDwggmqvznma27/12/2025 3:20 PM EDTOffice Visit [facility] [address] [place] [address] Bibi Singh MD Syncope and collapse (Primary Dx); Neurocardiogenic syncope; 28 weeks gestation of ; Gabby's diseasefrom Last 3 Months Family History RelationNameStatusCommentsFatherAliveMotherAlive Social History Tobacco UseTypesPacks/DayYears UsedDateSmoking Tobacco: FormerCigarettes Smokeless Tobacco: Former Tobacco Cessation:Counseling Given: Not Answered Comments:Quite 6 month ago Alcohol UseStandard Drinks/WeekCommentsNot Currently0 (1 standard drink = 0.6 oz pure alcohol)FL Safety & EnvironmentAnswerDate RecordedFear of Current or Ex-PartnerNot on file05/09/2023Emotionally AbusedNot on file05/09/2023hysically AbusedNot on file05/09/2023Sexually AbusedNot on file05/09/2023hysically or Sexually AbusedNot on file05/09/2023CommentsYesSex and Gender InformationValueDate RecordedSex Assigned at DwehyBmdhhr53/08/2025 2:10 PM EDT Legal JakCwjykz61/29/2022 11:55 PM EDTGender YazxkcboYmbmxf48/08/2025 2:10 PM EDTSexual OrientationHeterosexual or Uqwqvfnb27/08/2025 2:10 PM EDT Last Filed Vital Signs Vital SignReadingTime TakenCommentsBlood Bxlhpbrz166/8009 4:02 PM EDT Madrg170211/27/2024 4:02 PM EDTTemperature--Respiratory Rate--Oxygen Zmycumicsn07% 11/27/2024 4:02 PM EDTInhaled Oxygen Concentration--Texokl58 kg (172 lb) 11/27/2024 4:02 PM CLKZvlvnx105.1 cm (5' 5 )11/27/2024 4:02 PM EDTBody Mass Index28.62011/27/2024 4:02 PM EDT Plan of Treatment Health MaintenanceDue DateLast DoneCommentsIPV Vaccines (4 of 4 - 4-dose series) , 2000, 1999Depression Fotrtgytd94/25/2012 Varicella Vaccines (2 of 2 - 2-dose childhood series)HPV Vaccines (1 - 3-dose series)06/09/2014dult Yegsbjb84COVID-19 Vaccine (1 - season)2024Influenza Vaccine (#1)2024Pap Smear Zoster Vaccines (1 of 2)Pneumococcal Vaccine: Pediatrics (0 to 5 Years) and At-Risk Patients (6 to 64 Years)Aged Out 03/26/2000No longer eligible based on patient's age to complete this topicHIB YqekkyyfCowxqbyhc95/27/2001, 09/11/2000, 03/26/2000, Additional history exists Meningococcal JymbebsVtlfennqz98/28/2017Meningococcal B VaccineAged OutNo longer eligible based on patient's age to complete this topicRotavirus VaccinesAged Out No longer eligible based on patient's age to complete this topic Insurance
--- OUTSIDE RECORDS SUMMARY | 2025-01-23 08:31 | XMS_ITS | Encounter Summary ---
Author Organization [facility] Address [address] [place] [address] Care Team Providers Care Counterintelligence Specialist Name Role Phone Danny Schuler MD Primary Care Provider [phone] Danny Schuler MD Unavailable [phone] Encounter Details DateTypeDepartmentCare Team (Latest Contact Info)Rbweimbsxev17/05/2025amboo flowsheet KYE [place] OBGYKristina [address] [phone] Pretty Chaidez PA [address] [place], [place] [address] Social History Tobacco UseTypesPacks/DayYears UsedDateSmoking Tobacco: Some [...] relatives?Once a week12/11/2022How often do you attend judaism or druze services?More than 4 times per year12/11/2022o you belong to any clubs or organizations such as judaism groups, unions, fraWork in Field or athletic groups, or school groups?No12/11/2022How often [...] food, housing, medical care, and heating?Somewhat hard 12/11/2022Fin[facility] [place] of Occupational Health - Occupational Stress QuestionnaireAnswerDate RecordedDo you feel stress - tense, restless, nervous, or anxious, or unable to sleep at night because yourmind is troubled all the time - these days?Only a ncfsag6912/11/2022Exercise Vital SignAnswerDate Recorded On average, how many [...] degree you have received?11th grade3Estimated Date of GvgaijvhSyuxdzhuJbk29/06/2025Based on last menstrual period of 05/16/2024Sex and Gender InformationValueDate RecordedSex Assigned at HuklqQycjio80/25/2023 10:10 AM EDTLegal FegHksfue22/15/2023 6:51 PM EDTGender LcnaznkbYybjgy17/25/2023 10:10 AM EDTSexual OrientationNot on filedocumented as of this encounter Plan of Treatment DateTypeDepartmentCare Team (Latest Contact Info)Ywnpkwauayb05/12/2025 1:40 PM ESTRoutine [facility] [address] [address] Doc Thomas DO [address] [place] [address] documented as of this encounter Visit Diagnoses Not on filedocumented in this encounter Care Teams Team MemberRelationshipSpecialtyStart DateEnd Date Danny Schuler MD [address] [address] PCP - GeneralFamily Medicine07/24/22 Danny Schuler MD [address] [address] PCP - [place] [employer]06/16/20documented as of this encounter
--- OUTSIDE RECORDS SUMMARY | 2025-01-23 08:32 | XMS_ITS | Encounter Summary ---
Author Organization [facility] Address [address] [place] [address] Care Team Providers Care Tire Adjuster Name Role Phone Danny Payne MD Primary Care Provider [phone] Danny Payne MD Unavailable [phone] Encounter Details DateTypeDepartmentCare Team (Latest Contact Info)Hblolxnbrrq03/05/2025Clinisync Result Encounter [facility] External Department Unsolicited iSntia Thomas, DO [address] [place] [address] Social History Tobacco UseTypesPacks/DayYears UsedDateSmoking Tobacco: Some [...] relatives?Once a week12/11/2022How often do you attend advent or spiritism services?More than 4 times per year12/11/2022o you belong to any clubs or organizations such as advent groups, unions, fraKantox or athletic groups, or school groups?No12/11/2022How often [...] medical care, and heating?Somewhat hard 12/11/2022[facility], [facility] [place] of Occupational Health - Occupational Stress QuestionnaireAnswerDate RecordedDo you feel stress - tense, restless, nervous, or anxious, or unable to sleep at night because yourmind is troubled all the time - these days?Only a ybmhfx9712/11/2022Exercise Vital SignAnswerDate Recorded On average, how many [...] degree you have received?11th grade12/10/2022Estimated Date of PthnvzceMkeehofoDfi11/06/2025Based on last menstrual period of 05/16/2024Sex and Gender InformationValueDate RecordedSex Assigned at FzfkqBdubvu46/25/2023 10:10 AM EDTLegal IxzOpvhoc86/15/2023 6:51 PM EDTGender TbpbgfhdZmuggl31/25/2023 10:10 AM EDTSexual OrientationNot on filedocumented as of this encounter Plan of Treatment DateTypeDepartmentCare Team (Latest Contact Info)Fwpxmsmddaz72/12/2025 1:40 PM ESTRoutine [facility] [address] [place] [phone] Sintia Thomas DO [address] [place], [place] [id number] documented as of this encounter Procedures Procedure NamePriorityDate/TimeAssociated DiagnosisCommentsUS OB BPP W NON-EUZLGM9401/20/2025 5:10 PM EST documented in this encounter Results * US OB BPP W NON-STRESS (01/20/2025 5:10 PM EST)Anatomical Region LateralityModalityOtherSpecimen (Source)Anatomical Location / Laterality Collection Method / VolumeCollection TimeReceived Time01/20/2025 5:10 PM EST Narrative 01/20/2025 5:13 PM EST [facility] ?[address] ? [place] [address] ? Ultrasound Report ? Signed ? Patient: ALETA CASTRO ?MR#: [id number] ?? : 2000 ?Acct:[id number] ?? Age/Sex: 24 / F ?ADM Date: 01/20/25 ?? Loc: [facility]O ? Attending Dr: Sintia Thomas D.O. ? Ordering Physician: Sintia Thomas D.O. ?? Date of Service: 01/20/25 ?? Procedure(s): US OB BPP w non-stress ?? Accession Number(s): [id number] ? cc: Sintia Thomas D.O.; DANNY PAYNE ? [facility] ? [address] ? [place] [address] ? Patient Name: ?? ALETA N RAKEL ? MRN: [facility]:[id number] ? date: 2000 ?Sex: F ?? Assigned Patient Location: [facility] ?? Current Patient Location: ? Accession/Order Number: [id number] ?? Exam Date: 01/20/2025 ??15:17 ?Report Date: [...] Dictation Location: RADIO-PC-20 ? Electronically authenticated by: [id number] ??Y ?? Date: 01/20/2025 ??17:10 ? Dictated By: ?Loi Ellington D.O. ? Signed By: ?11/05/25 1713 ? DD/ 1710 ? TD/TT: ? Prepress Supervisor: Procedure Note Radiology, Radiologist, MD - 11/05/2025 [place] [address] Ultrasound Report Signed Patient: ALETA CASTRO NMR#: [id number] : 2000Acct:[id number] Age/Sex: 24 / FADM Date: 01/20/25 Loc: FBCO Attending Dr: Sintia Thomas D.O. Ordering Physician: Sintia Thomas D.O. Date of Service: 01/20/25 Procedure(s): US OB BPP w non-stress Accession Number(s): [id number] cc: Sintia Thomas D.O.; DANNY PAYNE The [place] [id number] Patient Name: ALETA CASTRO MRN: [id number] date: 2000 Sex: F Assigned Patient [facility] Current Patient Location: Accession/Order Number: [id number] Exam Date: 01/20/2025 15:17 Report Date: 01/20/2025 [...] Ellington M.D. 01/20/2025 5:10 PM Dictation Location: [place] [address] Electronically authenticated by: [id number] Y Date: 7:10 Dictated By: Loi Ellington D.O. Signed By:01/20/251712 DD/ 09 TD/TT: Prepress Supervisor: Authorizing ProviderResult TypeResult StatusCorey William DOCLINISYNC IMAGINGFinal Result documented in this encounter Visit Diagnoses Not on filedocumented in this encounter Care Teams Team MemberRelationshipSpecialtyStart DateEnd Date Danny Payne MD [address] [place] [address] PCP - GeneralFamily Medicine07/24/22 Danny Payne MD [address] [place] [address] PCP - Ziggy Richard06/16/20documented as of this encounter
--- OUTSIDE RECORDS SUMMARY | 2025-01-23 08:32 | XMS_ITS | CCD ---
Author Organization [facility] CliniSyla Care Team Providers Care [place] Man Name Role Phone BECERRIL, DAVID P Unavailable [...] Unavailable MD Rosalie Payne Primary Care Provider [phone] DO Marcelle Espinosa Attending Provider Marcelle Espinosa Attending Unavailable Marcelle Espinosa Admitting Unavailable Rosalie Payne Primary Care Unavailable Rosalie Payne MD Primary Care Provider Rosalie Payne MD Primary Care Provider Rosalie Payne MD Unavailable [phone] LESA SINGH Attending Unavailable WILLIAMDOC YOUNGBLOOD Attending Unavailable PRETTY MCKEON Attending Unavailable DOC THOMAS Attending Unavailable ROSALIE PAYNE Attending Unavailable MYRON MARROQUIN Attending Unavailable PRETTY MCKEON Attending Unavailable LUNA STEEN Attending Unavailable DOC THOMAS Attending Unavailable LUNA STEEN Attending Unavailable DOC THOMAS Attending Unavailable PRETTY MCKEON Attending Unavailable Allergies Allergy ClassificationReported Allergen(s)Allergy TypeDate of OnsetReaction(s) FacilityLatex (1 source)LatexSubstance Meapgav74-10-1011PcosYxwwe HealthMacrolides (antibiotic) (1 source)AzithromycinDrug Rdduzdx23-39-4809FrnprHcwzq Health (20 sources)Azithromycin; Translations: [azithromycin]Drug Ulmzzep53-28-1692 [facility] (11 sources)Latex; Translations: [Latex]Propensity to adverse reactions to drug 92-19-1190TgygQpgzf Health (1 source)AzithromycinDrug Ljvrcko84-77-1848Rek [facility] Repository (1 source)natural latex rubberDrug allergy (disorder)The [facility] Repository (2 sources)Banana Extract; Translations: [Banana]Drug AllergyVomiting (disorder) [facility] (20 sources)Midodrine; Translations: [midodrine]Drug Qtwvjvx25-13-8987JizzszwdReg[facility] (20 sources)LatexAllergy to -74-4376GtwrMSFS Healthcare (1 source)AzithromycinDrug Ektlxjb21-59-5009ZztvlioehMercy Hospital Repository (1 source)LatexDrug allergy (disorder)53-38-5738OatkaclxaMercy Hospital Repository Medications Current Medications MedicationDrug Class(es)DatesSig (Normalized)Sig (Original)[id number] 200 actuat albuterol 0.09 mg/actuat metered dose inhaler (2 sources)beta2-Adrenergic AgonistStart: 38-51-7356nvfz 2 puff(s) by inhalation four times daily as neededAlbuterol Sulfate HFA 108 (90 Base) MCG/ACT 2 puffs Inhalation 4 times a day prn Aug, ActiveStart: 87-43-3168usfu 2 puff(s) by inhalation four times daily as neededAlbuterol Sulfate HFA 108 (90 Base) MCG/ACT 2 puffs Inhalation 4 times a day prn Aug, Not-Taking/PRN fluconazole 150 mg oral tablet (2 sources)Azole AntifungalStart: 12-09-2024 End: 85-87-8128unxfpwjevsg (Diflucan) 150 MG tablet Indications: Yeast infection Take 1 tablet (150 mg) by mouth 1(one) time for 1 dose Repeat in 7 days if symptoms persist. 2 tablet 12/09/2024 12/09/2024 Activefluticasone propionate 0.05 mg/actuat metered dose nasal spray (4 sources)CorticosteroidStart: 42-37-0628aihuldjblux (Flonase) 50 MCG/ACT nasal sprayStart: 26-67-2458uayo 1 spray(s) nasal route once dailyFluticasone Propionate 50 MCG/ACT 1 spray in each nostril Nasally Once a day for 14 15 Mar, 2023 ActiveStart: 51-14-1976yxxi 2 spray(s) nasal route once daily as needed Fluticasone Propionate 50 MCG/ACT 2 sprays Nasally Once a day for 14 day(s) Aug, Not-Taking/PRNStart: 95-70-0110hnsc 2 spray(s) nasal route once daily Fluticasone Propionate 50 MCG/ACT 2 sprays Nasally Once a day for 14 day(s) Aug, Activeibuprofen 600 mg oral tablet (20 sources)Nonsteroidal Anti-inflammatory DrugStart: 91-96-3508zbjb 1 tablet by mouth four times daily as needed for painibuprofen (ADVIL;MOTRIN) 600 MG tablet Take 1 tablet by mouth 4 times daily as needed for Pain 30 tablet 0 12/14/2020 Active End: 44-84-4811kzrnqzdmb 200 MG tablet Take by mouth. 07/16/2024 Discontinued magnesium oxide 400 mg oral tablet (5 sources)Start: 07-16-2024 End: 86-67-7620rgnd 1 tablet by mouth once dailymagnesium oxide (Mag-Ox) 400 MG tablet Indications: Cluster headache, not intractable, unspecified chronicity pattern Take 1 tablet (400 mg) by mouth Daily 30 tablet 6 07/16/2024 08/15/2024 Activeondansetron 4 mg oral tablet (20 sources)Serotonin-3 Receptor AntagonistStart: 23-76-0689uxmf 1 tablet by mouth every six hours as needed for nausea and nausea, then take 1 tablet by mouthevery six hours as needed for nausea and nauseaondansetron (Zofran) 4 MG tablet Indications: Nausea and vomiting in ([facility]) Take 1 tablet (4 mg) by mouth every 6 (six) hours if needed for nausea or vomiting for up to 30 doses Take 1 tablet by mouth every 6 hours as needed for nausea. 30 tablet 12/23/2024 ActiveStart: 10-05-2024 End: 12-63-0872znxu 1 tablet by mouth every six hours for nauseaondansetron ODT (Zofran-ODT) 4 MG disintegrating tablet Indications: Nausea and vomiting during ([facility]) Take 1 tablet (4 mg) by mouth every 6 (six) hours if needed for nausea or vomiting 30 tablet 3 10/05/2024 11/04/2024 ActiveStart: 08-26-2024 End: 28-11-9427rkli 1 tablet by mouth every six hours for nauseaondansetron ODT (Zofran-ODT) 4 MG disintegrating tablet Indications: Nausea and vomiting during ([facility]) Take 1 tablet (4 mg) by mouth every 6 (six) hours if needed for nausea or vomiting 30 tablet 3 08/26/2024 09/30/2024 ActiveStart: 07-06-2024 End: 29-68-8690bsji 1 tablet by mouth every six hours for nauseaondansetron ODT (Zofran-ODT) 4 MG disintegrating tablet Indications: Nausea and vomiting during Take 1 tablet (4 mg) by mouth every 6 (six) hours if needed for nausea or vomiting 30 tablet 2 07/06/2024 08/05/2024 Activepenicillin v potassium 500 mg oral tablet (1 source)Start: 81-39-3838awwq 1 tablet by mouth every eight hoursPenicillin V Potassium 500 MG 1 tablet Orally tid for 10 day(s) 14 Apr, 2021 Active polysaccharide iron complex 391 mg oral capsule (5 sources)Start: 11-05-2024 End: 89-70-5333hxvj 1 capsule by mouth once dailyiron polysaccharides (ProFe) 391.3 (180 Fe) MG capsule Indications: Low hemoglobin Take 1 capsule (391.3 mg) by mouth Daily 30 capsule 3 11/05/2024 12/05/2024 ActivetiZANidine 4 mg oral tablet (2 sources)Central alpha-2 Adrenergic AgonistStart: 24-59-2397ztlc 1 tablet by mouth every eight hours as needed for paintiZANidine (ZANAFLEX) 4 MG tablet Take 1 tablet by mouth every 8 hours as needed (pain and muscle tension/cramps) 10 tablet 0 12/14/2020 Active Completed/Discontinued Medications MedicationDrug Class(es)DatesSig (Normalized)Sig (Original)acetaminophen 325 mg oral tablet (1 source)Start: 09-19-2020 End: 63-25-7357ehsxqkqedomfi (TYLENOL) tablet 650 mgCitalopram (7 sources)Serotonin Reuptake InhibitorCitalopram Hydrobromide Not-Taking/PRN take 1 tablet by mouth once dailycitalopram (CELEXA) 20 MG tablet Take 20 mg by mouth daily 0 ActiveCitalopram Hydrobromide Activeclotrimazole 10 mg oral lozenge (3 sources)Azole AntifungalStart: 24-53-1223Kojpvadplbqf 10 MG 1 wenceslao Mouth/Throat Three times a day for 7 day(s) Apr, Not-Taking/PRN medroxyPROGESTERone (4 sources)ProgestinDepo-Provera Not-Taking/PRNDepo-Provera Activemetoclopramide 10 mg oral tablet (12 sources)Dopamine-2 Receptor AntagonistStart: 07-16-2024 End: 00-32-3682uyflkhokeghhdh (Reglan) 10 MG tablet Indications: Nausea/vomiting in [...] tablet (2 sources)Nonsteroidal Anti-inflammatory DrugStart: 05-24-2021 End: 59-57-7538vobcrfzn sodium (ANAPROX) tablet 550 mgStart: 15-48-0047oopb 1 tablet by mouth twice daily at mealtimenaproxen (NAPROSYN) 500 MG tablet Take 1 tablet by mouth 2 times daily (with meals) 20 tablet 1 05/24/2021 Active pantoprazole 40 mg delayed release oral tablet (17 sources)Proton Pump InhibitorStart: 02-17-2024 End: 56-60-1965hezh 1 tablet by mouth before mealtimepantoprazole (ProtoNix) 40 MG EC tablet Take 40 mg by mouth in the morning. Take before meals. 02/17/2024 09/30/2024 DiscontinuedpredniSONE 20 mg oral tablet (3 sources)Start: 87-98-5015izsy 1 tablet by mouth every twelve hourspredniSONE 20 MG 1 tablet Orally 2 times a day for 5 day(s) Aug, Not-Taking/PRN Start: 44-59-9050ldhf 1 tablet by mouth every twelve hourspredniSONE 20 MG 1 tablet Orally bid for 5 day(s) Apr, Active Problems Active Problems Problem ClassificationProblemDateDocumented DateEpisodic/ChronicAbdominal pain (11 sources)Pelvic and perineal pain; Translations: [Right lower quadrant pain] Onset: 59-99-5056SgdpctnoMdpfejk dysrhythmias (20 sources)Postural orthostatic tachycardia syndrome ; Translations: [Postural orthostatic tachycardia syndrome (POTS)]Onset: 295902-28-2011Vthsmyi Cardiac dysrhythmias (4 sources)Palpitations; Translations: [Palpitations]35-56-3746Wgqwxbak Coagulation and hemorrhagic disorders (1 source)Qualitative platelet defects; 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]Onset: 93-77-3784UdnhtrvUulihtcake disorders (4 sources)Gastroesophageal reflux disease; Translations: [Gastro-esophageal reflux disease without esophagitis]59-57-2727BuxequgQnhckfmj; including migraine (1 source)Cluster headache; Translations: [Cluster headache syndrome, unspecified, not intractable]28-89-5281CrexbgjEcnmlvsiadels and screening for infectious disease (4 sources)Contact with and (suspected) exposure to other viral communicable diseases; Translations: [Exposureto sexually transmissible disorder]Onset: 04-07-2021 Resolved: 99-85-1751ZlmznhzgHtnnirs and fatigue (20 sources)Fatigue; Translations: [Chronic fatigue, unspecified]Onset: 176736-45-7068JoldkqxLldzwcskp disorders (20 sources)Disorder of menstruation; Translations: [Irregular menstruation, unspecified]Onset: 943056-04-1907GdwphzpOveyuhx (3 sources)Candidal stomatitis; Translations: [Mycosis]Onset: 05-11-2021 Resolved: 06-20-9361NwulnxejAxtyjv and vomiting (4 sources)Nausea; Translations: [Nausea]24-00-8647RtpjnbltBykmu bone disease and musculoskeletal deformities (20 sources)Patricia Schlatter disease; 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]Onset: 459405-40-6803AnpcbasZosem circulatory disease (1 source)Postural orthostatic tachycardia yrxlugzt49-86-0767JpsflaukWflzl complications of (1 source)Vomiting of , unspecified; Translations: [Unspecified vomiting of , unspecified as to episode of care or not applicable] 14-35-6730XrlayanrNqvrw gastrointestinal disorders (2 sources)Diarrhea; Translations: [Diarrhea, unspecified]52-63-7521Pyhyftvg Other gastrointestinal disorders (2 sources)Diarrhea, unspecified; Translations: [Diarrhea]76-24-6710Wsbkkxll Other gastrointestinal disorders (1 source)Dysphagia; Translations: [Dysphagia, unspecified]92-65-8474Gxoaspju Other gastrointestinal disorders (1 source)Dysphagia, unspecified; Translations: [Dysphagia, unspecified] 03-16-6902ZukalgvgVsmkf injuries and conditions due to external causes (1 source)Closed injury of head; Translations: [Unspecified injury of head, initial encounter]EpisodicOther injuries and conditions due to external causes (1 source)Injury of coccyx; Translations: [Unspecified injury of lower back, initial encounter]EpisodicOther injuries and conditions due to external causes (2 sources)Injury of left knee; Translations: [Unspecified injury of left lower leg, initial encounter]46-36-1218FfaxibxpObcmw nutritional; endocrine; and metabolic disorders (20 sources)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 imbalance; Translations: [Other obesity due to excess calories]Onset: 506993-95-8033NnllumdXukfx nutritional; endocrine; and metabolic disorders (1 source)H/O: -37-7265OixfggnwDnmrt and delivery including normal (20 sources); Translations: [Encounter for supervision of normal , unspecified, unspecified trimester]18-50-2016KfnahlwyBavzn screening for suspected conditions (not mental disorders or infectious disease) (8 sources)Encounter for screening for malignant neoplasm of cervix; Translations: [Patient encounter status]Onset: 34-69-3121XvnzqfswUhbbn upper respiratory infections (9 sources)Streptococcal sore throat; Translations: [Strep throat]Onset: 05-01-2021 Resolved: 86-15-6092DzucpgqeXkkyowtd codes; unclassified (2 sources)Gestation period, 11 weeks; Translations: [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 ]24-85-7072MncskjmmQvegvdpd codes; unclassified (2 sources)Gestation period, 15 weeks; Translations: [15 weeks gestation of ]15-03-1329HidbcmueKmbvyifs codes; unclassified (2 sources)Gestation period, 19 weeks; Translations: [19 weeks gestation of ]65-23-5734WqfmapmcAfudcvcu codes; unclassified (2 sources)Gestation period, 23 weeks; Translations: [23 weeks gestation of ]89-55-5008ZszgrwnjGyqjwerx codes; unclassified (2 sources)Gestation period, 27 weeks; Translations: [27 weeks gestation of ]99-43-0774XlqgahufWgrqxyxr codes; unclassified (2 sources)Gestation period, 29 weeks; Translations: [29 weeks gestation of ]13-71-4884KctvrtkfSeerrdyx codes; unclassified (2 sources)Gestation period, 31 weeks; Translations: [31 weeks gestation of ]37-82-5627OuvcayjsXstxztcu codes; unclassified (2 sources)Gestation period, 33 weeks; Translations: [33 weeks gestation of ]17-29-1355JlgmiexiCmsbjaeu codes; unclassified (2 sources)Gestation period, 35 weeks; Translations: [35 weeks gestation of ]34-84-9445SdtqsakbCbhrwtyqn-related disorders (20 sources)Cigarette smoker ; Translations: [Nicotine dependence, cigarettes, uncomplicated]Onset: 105859-68-7764RjqkgqrTpxgaufknmb injury; contusion (1 source)Contusion of left knee; Translations: [Contusion of left knee, initial encounter]EpisodicSyncope (2 sources)Syncope; Translations: [Syncope]Onset: 33-18-5126PeeejsjkGmhaqmk disorders (20 sources)Evan thyroiditis; Translations: [Autoimmune thyroiditis]Onset: 390034-24-5896EtsdukpBqdwqdffsqav (2 sources)Unknown / UNK(Unknown)Onset: 86-23-0772Scebqbdjfqtj (2 sources)New Patient; Translations: [New Patient]Onset: 61-92-0986Oagvruwzuwxw (2 sources)POTSOnset: 11-27-2024 Past or Other Problems Problem ClassificationProblemDateDocumented DateEpisodic/ChronicChronic obstructive pulmonary disease and bronchiectasis (1 source)Bronchitis, not specified as acute or chronicOnset: 08-21-2021 Resolved: 76-33-4215IyyhcjvxMnoehptqc (5 sources)Influenza; Translations: [Influenza A]Other circulatory disease (4 sources)Orthostatic hypotension; Translations: [ORTHOSTATIC HYPOTENSION] Onset: 18-27-7754AjyeecnlVjkrs circulatory disease (20 sources)Low blood pressure; Translations: [Hypotension, unspecified]Onset: 038992-91-8261GhmwncnsWmlpc non-traumatic joint disorders (20 sources)Pain in left knee; Translations: [Pain in joint, lower leg]Onset: 945780-59-2858QtswcmnwAtxgb nutritional; endocrine; and metabolic disorders (20 sources)Body mass index 25-29 - overweight; Translations: [Overweight]Onset: 12-10-2022 Resolved: 524712-19-2489MunhcreyJnnymfz cyst (20 sources)Cyst of ovary; Translations: [Unspecified ovarian cyst, unspecified side]Onset: 551136-59-9054Brsbpspe Results Test NameValueInterpretationReference RangeFacilityUS OB BPP W NON-STRESS on 59-52-7200[place]mk[place] [address] Ultrasound Report Signed Patient: ALETA CASTRO MR#: [id number] : 2000 Acct:[id number] Age/Sex: 24 / F ADM Date: 01/20/25 Loc: [facility]BCO Attending Dr: Doc Thomas D.O. Ordering Physician: Doc Thomas D.O. Date of Service: 01/20/25 Procedure(s): US OB BPP w non-stress Accession Number(s): [id number] cc: Doc Thomas D.O.; ROSALIE PAYNE [place] [address] Patient Name: ALETA CASTRO MRN: [id number] date: 2000 Sex: F Assigned Patient Location: [facility] Current Patient Location: Accession/Order Number: [id number] Exam Date: 01/20/2025 15:17 Report Date: 01/20/2025 [...] Ellington M.D. 01/20/2025 5:10 PM [facility]ated by: [id number] Y Date: 01/20/2025 17:10 Dictated By: Loi Ellignton D.O. Signed By: 01/20/251712 DD/ 09 TD/TT: Manager [employer]:Selena Merchant, - 01/20/2025 [place] [address] Ultrasound Report Signed Patient: ALETA CASTRO MR#: [id number] : 2000 Acct:[id number] Age/Sex: 24 / F ADM Date: 01/20/25 Loc: [facility]BCO Attending Dr: Doc Thomas D.O. Ordering Physician: Doc Thomas D.O. Date of Service: 01/20/25 Procedure(s): US OB BPP w non-stress Accession Number(s): [id number] cc: Doc Thomas D.O.; ROSALIE PAYNE The [place] [address] Patient Name: ALETA CASTRO MRN: [id number] date: 2000 Sex: F Assigned Patient Location: [facility] Current Patient Location: Accession/Order Number: [id number] Exam Date: 01/20/2025 15:17 Report Date: 01/20/2025 [...] Ellington M.D. 01/20/2025 5:10 PM Dictation Location: [place] [address] Electronically authenticated by: [id number] Y Date: 01/20/2025 17:10 Dictated By: Loi Ellington D.O. Signed By: 01/20/251712 DD/ 09 TD/TT: Manager [employer]: KYE HealthcareRadiology Study observation (narrative)NOMS HealthcareUS OB BPP W NON-STRESSOrdered By: Radiologist Radiology on 17-04-8977PTMJ Healthcare Work Phone: Urinalysis macro (dipstick) panel (U)on 01-20-2025 Bilirubin, UANegativeNegative - 4(70) +++ mg/dLNOMS HealthcareBlood, UANegative Negative - 50 Randall/mcLNOMS HealthcareClarity, UAClearNOMS HealthcareColor, UA YellowNOMS HealthcareGlucose, UATraceNegative - 2000(110) ++++ mg/dLNOMS HealthcareInterpretation and review of laboratory resultsAbnormalNONC Healthcare Ketones, UANegativeNegative - 160(16) ++++ mg/dLNOMS HealthcareLeukocytes, UA NegativeNegative - 500+++ Rick/mcLNOMS HealthcareNitrite, UANegativeNegative - PositiveNOMS HealthcarepH, UA5.55 - 9NOMS HealthcareProtein, UA1+Negative - 2000(20) ++++ mg/dLNONC HealthcareSpec Grav, UA1.0301 - 1.03NOMS Healthcare Urobilinogen, UA1.00.2 - 12 mg/dLNOMS HealthcareNOMS HealthcareUS OB BPP W NON-STRESSon 28-52-1881Nys[place] [address] Ultrasound Report Signed Patient: ALETA CASTRO MR#: [id number] : 2000 Acct:[id number] Age/Sex: 24 / F ADM Date: 01/11/25 Loc: US Attending Dr: Doc Thomas D.O. Ordering Physician: Doc Thomas D.O. Date of Service: 01/11/25 Procedure(s): US OB BPP w non-stress Accession Number(s): [id number] cc: Doc Thomas D.O.; ROSALIE PAYNE [address] [address] Patient Name: ALETA CASTRO MRN: [id number] date: 2000 Sex: F Assigned Patient Location: [facility] Current Patient Location: Accession/Order Number: [id number] Exam Date: 01/11/2025 15:03 Report Date: 01/11/2025 [...] Aguilar M.D. 01/11/2025 9:15 PM Dictation Location: [place] [address] Electronically authenticated by: [id number] Y Date: 01/11/2025 21:15 Dictated By: Deshaun Aguilar M.D. Signed By: 01/11/252117 DD/ 14 TD/TT: Manager [employer]:TBHRadiology, Radiologist, - 01/11/2025 [place] [address] Ultrasound Report Signed Patient: ALETA CASTRO MR#: [id number] : 2000 Acct:[id number] Age/Sex: 24 / F ADM Date: 01/11/25 Loc: US Attending Dr: Doc Thomas D.O. Ordering Physician: Doc Thomas D.O. Date of Service: 01/11/25 Procedure(s): US OB BPP w non-stress Accession Number(s): [id number] cc: Doc Thomas D.O.; ROSALIE PAYNE The [address] [address] Patient Name: ALETA CASTRO MRN: [id number] date: 2000 Sex: F Assigned Patient Location: [facility] Current Patient Location: Accession/Order Number: [id number] Exam Date: 01/11/2025 15:03 Report Date: 01/11/2025 [...] Aguilar M.D. 01/11/2025 9:15 PM Dictation Location: [place] [address] Electronically authenticated by: [id number] Y Date: 01/11/2025 21:15 Dictated By: Deshaun Aguilar M.D. Signed By: 01/11/252117 DD/ 14 TD/TT: Manager [employer]: KYE HealthcareRadiology Study observation (narrative)NOMS HealthcareUS OB BPP W NON-STRESSOrdered By: Radiologist Radiology on 33-62-6882LDML [facility] Work Phone: Urinalysis macro (dipstick) panel [...] mg/dLNOMS HealthcareNOMS HealthcareUS OB BPP W NON-STRESSon 41-74-9147QipNew [place] [address] Ultrasound Report Signed Patient: ALETA CASTRO MR#: [id number] : 2000 Acct:[id number] Age/Sex: 24 / F ADM Date: 01/02/25 Loc: US Attending Dr: Doc Thomas D.O. Ordering Physician: Doc Thomas D.O. Date of Service: 01/02/25 Procedure(s): US OB BPP w non-stress Accession Number(s): [id number] cc: Doc Thomas D.O.; ROSALIE PAYNE [place] [address] Patient Name: ALETA CASTRO MRN: [id number] date: 2000 Sex: F Assigned Patient Location: [facility] Current Patient Location: Accession/Order Number: [id number] Exam Date: 01/02/2025 09:00 Report Date: 01/02/2025 [...] Dalton M.D. 01/02/2025 3:02 PM Dictation Location: [place] [address] Electronically authenticated by: [id number] Y Date: 01/02/2025 15:02 Dictated By: Emmanuel Dalton M.D. Signed By: 01/02/25 1505 DD/ 1502 TD/TT: Manager [employer]:NINAHRadiology, Radiologist, - 01/02/2025 [place] [address] Ultrasound Report Signed Patient: ALETA CASTRO MR#: [id number] : 2000 Acct:[id number] Age/Sex: 24 / F ADM Date: 01/02/25 Loc: US Attending Dr: Doc Thomas D.O. Ordering Physician: Doc Thomas D.O. Date of Service: 01/02/25 Procedure(s): US OB BPP w non-stress Accession Number(s): [id number] cc: Doc Thomas D.O.; ROSALIE PAYNE [place] [address] Patient Name: ALETA CASTRO MRN: [id number] date: 2000 Sex: F Assigned Patient Location: [facility] Current Patient Location: Accession/Order Number: [id number] Exam Date: 01/02/2025 09:00 Report Date: 01/02/2025 [...] Dalton M.D. 01/02/2025 3:02 PM Dictation Location: [place] [address] Electronically authenticated by: [id number] Y Date: 01/02/2025 15:02 Dictated By: Emmanuel Dalton M.D. Signed By: 01/02/25 1505 DD/ 1502 TD/TT: Manager [employer]: KYE SoaresRadiology Study observation (narrative)NOMS HealthcareUS OB BPP W NON-STRESSOrdered By: Radiologist Radiology on 34-23-2681QADK [employer] Work Phone: aLL THYROID STIM HORMONEon [phone] and review of laboratory resultsAbnormalNOCox [place]ett Qn0.131 m[IU]/LLow NOM HealthcareCLINISYNCNOMS HealthcareUS OB BPP W NON-STRESSon 12-26-2024 [place] [address] Ultrasound Report Signed Patient: ALETA CASTRO MR#: [id number] : 2000 Acct:[id number] Age/Sex: 24 / F ADM Date: 12/26/24 Loc: US Attending Dr: Doc Thomas D.O. Ordering Physician: Doc Thomas D.O. Date of Service: 12/26/24 Procedure(s): US OB BPP w non-stress Accession Number(s): [id number] cc: Doc Thomas D.O.; ROSALIE PAYNE [place] [id number] Patient Name: ALETA CASTRO MRN: [id number] date: 2000 Sex: F Assigned Patient Location: Current Patient Location: Accession/Order Number: [id number] Exam Date: 12/26/2024 09:00 Report Date: 12/26/2024 [...] Aguilar M.D. 12/26/2024 11:19 AM Dictation Location: [place] [address] Electronically authenticated by: [id number] Y Date: 12/26/2024 11:19 Dictated By: Deshaun Aguilar M.D. Signed By: 12/26/241121 DD/ 18 TD/TT: Manager [employer]:MARTINEadiolSelena aragon, - 12/26/2024 [place] [address] Ultrasound Report Signed Patient: ALETA CASTRO MR#: [id number] : 2000 Acct:[id number] Age/Sex: 24 / F ADM Date: 12/26/24 Loc: US Attending Dr: Doc Thomas D.O. Ordering Physician: Doc Thomas D.O. Date of Service: 12/26/24 Procedure(s): US OB BPP w non-stress Accession Number(s): [id number] cc: Doc Thomas D.O.; ROSALIE PAYNE [place] [address] Patient Name: ALETA CASTRO MRN: [id number] date: 2000 Sex: F Assigned Patient Location: US Current Patient Location: Accession/Order Number: [id number] Exam Date: 12/26/2024 09:00 Report Date: 12/26/2024 [...] Aguilar M.D. 12/26/2024 11:19 AM Dictation Location: [place] [address] Electronically authenticated by: [id number] Y Date: 12/26/2024 11:19 Dictated By: Deshaun Aguilar M.D. Signed By: 12/26/241121 DD/ 1119 TD/TT: Manager [employer]: KYE HealthcareRadiology Study observation (narrative)NOMS HealthcareUS OB BPP W NON-STRESSOrdered By: Radiologist Radiology on 18-09-3330BZVF Healthcare Work Phone: US OB GROWTHon [phone] [place] [address] Ultrasound Report Signed Patient: ALETA CASTRO MR#: [id number] : 2000 Acct:[id number] Age/Sex: 24 / F ADM Date: 12/26/24 Loc: US Attending Dr: Doc Thomas D.O. Ordering Physician: Doc Thomas D.O. Date of Service: 12/26/24 Procedure(s): US OB growth Accession Number(s): [id number] cc: Doc Thomas D.O.; ROSALIE PAYNE [address] [address] Patient Name: ALETA CASTRO MRN: [id number] date: 2000 Sex: F Assigned Patient Location: US Current Patient Location: Accession/Order Number: [id number] Exam Date: 12/26/2024 09:00 Report Date: 12/26/2024 11:31 At the request of: DOC THOMAS DO Procedure: US OB growth Obstetric ultrasound for growth INDICATION: Evan's disease FINDINGS: Single live anterior cephalic presentation longitudinal lie. Amniotic fluid index 12.4 cm between the gestational age fifth and 95th percentile. Largest pocket of fluid 5.1 cm. heart rate 1 52 bpm. motion documented by the heavy duty press operator.. Estimated weight 2093 g 71.4%. Gestation age 32 weeks and 0 days. Biparietal diameter 7.93 m. Head circumference 30.7 cm. Otherwise the 10.6 cm. Abdominal circumference 28.9 cm. Femur length 6.4 cm. US/US OB growth IMPRESSION: Single live intrauterine of approximately 30 weeks Impression dictated by: Deshaun Aguilar M.D. 12/26/2024 11:31 AM Dictation Location: [place] [address] Electronically authenticated by: [id number] Y Date: 12/26/2024 11:31 Dictated By: Deshaun Aguilar M.D. Signed By: 12/26/24 1133 DD/ 1131 TD/TT: Manager Intel:MARTINEadiologkehinde, Radiologist, - 12/26/2024 [place] [address] Ultrasound Report Signed Patient: ALETA CASTRO MR#: [id number] : 2000 Acct:[id number] Age/Sex: 24 / F ADM Date: 12/26/24 Loc: US Attending Dr: Doc Thomas D.O. Ordering Physician: Doc Thomas D.O. Date of Service: 12/26/24 Procedure(s): US OB growth Accession Number(s): [id number] cc: Doc Thomas D.O.; ROSALIE PAYNE [place] [address] Patient Name: ALETA CASTRO MRN: [id number] date: 2000 Sex: F Assigned Patient Location: Current Patient Location: Accession/Order Number: [id number] Exam Date: 12/26/2024 09:00 Report Date: 12/26/2024 11:31 At the request of: DOC THOMAS DO Procedure: US OB growth Obstetric ultrasound for growth INDICATION: Evan's disease FINDINGS: Single live anterior cephalic presentation longitudinal lie. Amniotic fluid index 12.4 cm between the gestational age fifth and 95th percentile. Largest pocket of fluid 5.1 cm. heart rate 1 52 bpm. motion documented by the heavy duty press operator.. Estimated weight 2093 g 71.4%. Gestation age 32 weeks and 0 days. Biparietal diameter 7.93 m. Head circumference 30.7 cm. Otherwise the 10.6 cm. Abdominal circumference 28.9 cm. Femur length 6.4 cm. US/US OB growth IMPRESSION: Single live intrauterine of approximately 30 weeks Impression dictated by: Deshaun Aguilar M.D. 12/26/2024 11:31 AM Dictation Location: [place] [address] Electronically authenticated by: [id number] Y Date: 12/26/2024 11:31 Dictated By: Deshaun Aguilar M.D. Signed By: 12/26/24 1133 DD/ 1131 TD/TT: Manager Intel: KYE HealthcareRadiology Study observation (narrative)[facility] HealthcareUS OB GROWTHOrdered By: Radiologist Radiology on 54-27-8674KZLC Healthcare Work Phone: Urinalysis macro (dipstick) panel [...] mg/dLNOMS HealthcareNOMS HealthcareUrinalysis macro (dipstick) panel (U)on 21-66-5332Suuiyxtjo, UANegativeNegative - 4(70) +++ mg/dLNOMS HealthcareBlood, UANegativeNegative [...] UA0.20.2 - 12 mg/dLNOMS HealthcareNOMS HealthcareOffice Visiton 38-23-0029Hswvuk-up visit [id number] Aleta Castro 2000 F Date Provider Department Center 11/27/2024 12222-XSTJPHLESA SINGH [facility] Family History Family Status - Relation Status Age at Mother Alive Father Alive Level of Service:62883 [place] OFFICE/OUTPATIENT NEW LOW MDM 30 MINUTES Reason for Visit and Comments: New Patient [632] - New patient here today to establish care with cardiology Syncope [506] POTS [Other] Positive tilt table [Other] 6 months [Other]NormalUnSelect Medical Specialty Hospital - ColumbusUrinalysis macro (dipstick) panel (U)on 43-41-4276Zungjpiml, UAPositiveNegative - 4(70) +++ mg/dLNOMS HealthcareComment on [...] 12 mg/dLNOMS HealthcareNOMS HealthcareCA ECHO DOPPLER COMPLETEon 67-17-4284[place]ys[place] [address] Cardiology Report Signed Patient: ALETA CASTRO MR#: [id number] : 2000 Acct:[id number] Age/Sex: 24 / F ADM Date: 11/12/24 Loc: CARD Attending Dr: Luna Steen Ordering Physician: Luna Steen Date of Service: 11/12/24 Procedure(s): CA echo doppler complete Accession Number(s): [id number] cc: Luna Steen; ROSALIE PAYNE Patient Name: ALETA CASTRO MR#: [id number] : 2000 Exam Date: 11/12/2024 Ordering Doctor: LUNA STEEN [facility] ECHOCARDIOGRAM REPORT PROCEDURE: CA ECHO DOPPLER COMPLETE [...] content not included)...TBHRadiology, Radiologist, - 11/24/2024 [facility] [place] [id number] Cardiology Report Signed Patient: ALETA CASTRO MR#: [id number] : 2000 Acct:[id number] Age/Sex: 24 / F ADM Date: 11/12/24 Loc: CARD Attending Dr: Luna Steen Ordering Physician: Luna Steen Date of Service: 11/12/24 Procedure(s): CA echo doppler complete Accession Number(s): [id number] cc: Luna Steen; ROSALIE PAYNE Patient Name: ALETA CASTRO MR#: [id number] : 2000 Exam Date: 11/12/2024 Ordering Doctor: LUNA STEEN [facility] ECHOCARDIOGRAM REPORT PROCEDURE: CA ECHO DOPPLER COMPLETE [...] Signed By: 11/24/24 1640 DD/ 1639 TD/TT: Manager Intel: KYE HealthcareRadiology Study observation (narrative)KYE HealthcareCA ECHO DOPPLER COMPLETEOrdered By: Radiologist Radiology on 38-68-7980EJWL Healthcare Work Phone: ecg 12-LEADon 15-74-1486[place]qx[place] [address] Electrocardiograph Report Signed Patient: ALETA CASTRO MR#: [id number] : 2000 Acct:[id number] Age/Sex: 24 / F ADM Date: 11/12/24 Loc: CARD Attending Dr: Luna Steen Ordering Physician: Luna Steen Date of Service: 11/12/24 Procedure(s): ECG 12 lead Accession Number(s): [id number] cc: [facility] Test Date: 2024-11-12 Pat Name: ALETA CASTRO Department: Room: - 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 Signed By: 11/13/24 1334 11/13/24 1334 DD/ 1206 TD/TT: Manager Intel: KYE [place]ales 12-LEADOrdered By: Radiologist Radiology on 15-08-2353XLJW Healthcare Work Phone: ECG 12-LEADon 14-81-8004Rtycjzkwq Study observation (narrative)NOMS HealthcareALL CBC WITH AUTO DIFFon 07-48-0947JRQEJXRXG ABSOLUTE BZUT1CXKE HealthcareBasophils/100 WBC (Bld)0.2 %0.2 - 2.0 %[facility] Eosinophils/100 WBC (Bld)0.5 %Low0.9 - 7.0 %NOMS HealthcareErythrocyte distribution width (RBC) [Ratio]12.7 %11.0 - 15.0 %NOMS HealthcareHematocrit (Bld) [Volume fraction]31.2 %Low36.0 - 48.0 %NOMS HealthcareHemoglobin (Bld) [Mass/Vol]10.8 g/dLLow12.0 - 16.0 g/dLNONC HealthcareIMMATURE GRANULOCYTES ABS AUTO0.01NOMS HealthcareImmature granulocytes/100 WBC (Bld)0.2 %0.0 - 0.5 %[facility] HealthcareInterpretation and review of laboratory resultsAbnormalNOSullivan County Memorial Hospital LYMPHOCYTES ABSOLUTE VHCA5CswUWDH HealthcareLymphocytes/100 WBC (Bld)15 %Low20.5 - 60.0 %[facility]Pointe HospitalH (RBC) [Entitic mass]32.3 pg26.7 - 34.0 pgNOScotland County Memorial HospitalHC (RBC) [Mass/Vol]34.6 g/dL29.9 - 35.2 g/dLCenterPointe HospitalV (RBC) [Entitic vol]93.4 fL81.0 - 99.0 fLNONC HealthcareMONOCYTES ABSOLUTE AUTO0.5NOMS HealthcareMonocytes/100 WBC (Bld)7.7 %1.7 - 12.0 %[facility] HealthcareNEUTROPHILS ABSOLUTE GVCU0ORPX HealthcareNeutrophils/100 WBC (Bld)76.4 %High43.0 - 75.0 % [facility] Health CenterPlatelet mean volume (Bld) [Entitic vol]9.7 fL9.5 - 13.5 fLNOMS HealthcareTBH EO #0NOMS HealthcareTBH TBN041HXDY [facility] HospitalTB RBC3.34LowNOMS [facility] HospitalTB WBC6.6NOMS HealthcareCLINISYNCNOMS HealthcareIGP,APTIMA HPV,AGE GDLNon 88-15-5169MIE GDLN ACOG TESTINGNote.[facility] HealthcareComment on above:TESTS RESULT FLAG UNITS REF RANGE LAB Clinician Provided Cytology Information Source.............Endocervix No. of containers..01 ThinPrep Vial Age Algo ACOG Yaa... -15 04 FLAG LEGEND: L-Low Normal,H-High Normal,LL-Alert Low,HH-Alert High <-Panic Low,>-Panic High,A-Abnormal,AA-Critical Abnormal Performed at: 01 =G [facility] [address] [place] [address] Ludy Hector MD, IGP, RFX APTIMA HPV ASCUNote.[facility] HealthcareComment on above:TESTS RESULT FLAG UNITS REF RANGE LAB DIAGNOSIS: 02 NEGATIVE FOR INTRAEPITHELIAL LESION OR MALIGNANCY. THIS SPECIMEN WAS RESCREENED PART OF OUR ROW BOSS HOEING PROGRAM. Specimen adequacy: 02 Satisfactory for evaluation. No endocervical component is identified. Performed by: Saravanan Mello, Therapist Asst (ASC) QC reviewed by: 02 Polina Simons, Therapist Asst . 02 Note: Note 02 The Pap [...] <-Panic Low,>-Panic High,A-Abnormal,AA-Critical Abnormal Performed at: [address] [address] Ludy Hector MD, Performed at: =[facility] [id number] Campaign Coordinator: Ludy Hector MD, Phone: [phone] Performed at: [address] [id number] Campaign Coordinator: Ludy Hector MD, Phone: [phone] BRUSH-SPATULA ENDOCERVIX CLINISYNCNOMS HealthcareRECURRENT VAGINITIS (HTRX)on 67-64-9472ECIVQKUFD VAGINAE 0NOMS HealthcareATOPOBIUM VAGINAENot detectedNOMS HealthcareBVAB 2,3 (BACTERIAL VAGINOSIS ASSOCIATED BACTERIA 2, 3); MOBILUNCUS OPN9ZDSE HealthcareBVAB 2,3 (BACTERIAL VAGINOSIS ASSOCIATED BACTERIA 2, 3); MOBILUNCUS SPPNot detectedNOMS HealthcareCANDIDA ALBICANS, PARAPSILOSIS, EOQUCWSCRP5XTFR HealthcareCANDIDA ALBICANS, PARAPSILOSIS, TROPICALISNot detectedNOMS HealthcareCANDIDA GLABRATA0 NOMS HealthcareCANDIDA GLABRATANot detectedNOMS HealthcareCANDIDA WIWWRS8GBBX HealthcareCANDIDA KRUSEINot detectedNOMS HealthcareCHLAMYDIA NGBINTGNZME6ULSO HealthcareCHLAMYDIA TRACHOMATISNot detectedNOMS HealthcareGARDNERELLA VAGINALIS0 NOMS HealthcareGARDNERELLA VAGINALISNot detectedNOMS HealthcareMEGASPHAERA (TYPES 1, 2)0NOMS HealthcareMEGASPHAERA (TYPES 1, 2)Not detectedNOMS Healthcare MYCOPLASMA XEYEAGETQE7CLRN HealthcareMYCOPLASMA GENITALIUMNot detectedNOMS HealthcareNEISSERIA JMOORZBEKKP2ENHO HealthcareNEISSERIA GONORRHOEAENot detected NOMS HealthcareTRICHOMONAS TXMNYFODF8CVSR HealthcareTRICHOMONAS VAGINALISNot detectedNOMS HealthcareNOMS HealthcareUrinalysis macro (dipstick) panel (U)on 49-10-1474Nakxdzbyx, UAPositiveNegative - 4(70) +++ mg/dLNOMS HealthcareBlood, UANegativeNegative [...] 12 mg/dLNOMS HealthcareNOMS HealthcareUS OB CERVICAL LENGTHon 07-43-9693ErlNew [place] [address] Ultrasound Report Signed Patient: ALETA CASTRO MR#: [id number] : 2000 Acct:[id number] Age/Sex: 24 / F ADM Date: 10/06/24 Loc: US Attending Dr: Doc Thomas D.O. Ordering Physician: Doc Thomas D.O. Date of Service: 10/06/24 Procedure(s): US OB cervical length Accession Number(s): [id number] cc: Doc Thomas D.O.; ROSALIE PAYNE [place] [id number] Patient Name: ALETA CASTRO MRN: [id number] date: 2000 Sex: F Assigned Patient Location: US Current Patient Location: US Accession/Order Number: [id number] Exam Date: 10/06/2024 14:25 Report Date: 10/06/2024 [...] Jr., D.O. 10/06/2024 2:26 PM Dictation Location: [place] [address] Electronically authenticated by: [id number] Y Date: 10/06/2024 14:26 Dictated By: Jermaine Nguyễn M.D. Signed By: 10/06/241427 DD/ 25 TD/TT: Manager Intel:MARTINEadiologkehinde, Radiologist, - 10/06/2024 [place] [address] Ultrasound Report Signed Patient: ALETA CASTRO MR#: [id number] : 2000 Acct:[id number] Age/Sex: 24 / F ADM Date: 10/06/24 Loc: US Attending Dr: Doc Thomas D.O. Ordering Physician: Doc Thomas D.O. Date of Service: 10/06/24 Procedure(s): US OB cervical length Accession Number(s): [id number] cc: Doc Thomas D.O.; ROSALIE PAYNE [place] [address] Patient Name: ALETA CASTRO MRN: [id number] date: 2000 Sex: F Assigned Patient Location: US Current Patient Location: US Accession/Order Number: [id number] Exam Date: 10/06/2024 14:25 Report Date: 10/06/2024 [...] Jr., D.O. 10/06/2024 2:26 PM Dictation Location: [place] [address] Electronically authenticated by: [id number] Y Date: 10/06/2024 14:26 Dictated By: Jermaine Nguyễn M.D. Signed By: 10/06/24 1428 DD/ 142 TD/TT: Manager Intel: [facility] Health CenterRadiology Study observation (narrative)[facility] Health CenterUS OB CERVICAL LENGTHOrdered By: Radiologist Radiology on 04-41-4513GWJA [employer] Work Phone: US OB 14+ WEEKS ANATOMY SCANon 50-38-8481KB OB 14+ WEEKS ANATOMY SCANFINDINGS: A single, [...] Delivery: 02/20/25 Gestational Age as of 09/02/2024: 06i9cQcuymwtqtk macro (dipstick) panel (U)on 80-64-1176Scdoqzwwc, UANegativeNegative - 4(70) +++ mg/dLNOMS HealthcareBlood, UANegativeNegative [...] mg/dLNOMS HealthcareNOMS Healthcare ALL THYROID STIM HORMONEon 69-06-7743SRT Qn0.836 m[IU]/LNOMS HealthcareCLINISYNC NOMS HealthcareUrinalysis macro (dipstick) panel (U)on 97-13-3512Okhmtusqu, UA NegativeNegative - 4(70) +++ mg/dLNOMS HealthcareBlood, [...] 12 mg/dLNOMS HealthcareNOMS HealthcareALL THYROID STIM HORMONEon 70-40-0453JIB Qn1.413 m[IU]/LNOMS HealthcareCLINISYNCNOMS HealthcareUrinalysis macro (dipstick) panel (U)on 13-92-0425Qqvsvvinu, UANegativeNegative - 4(70) +++ mg/dLNOMS HealthcareBlood, UANegativeNegative [...] UA1.00.2 - 12 mg/dLNOMS HealthcareNOMS HealthcareBOX TESTon 09-96-9329CSZ TEST SENT OUTUNITY NOMS TngjlnjmrnAPQ5XZWYSCGUD GuxhdgcbtiCEO28/3/25NOMS HealthcareUNITY CLINISYNCNONC HealthcareTBH DRUG SCREEN RAPID (URINE)on 41-65-7695FSENVCEYCCR SCREEN URINENegativeNEGATIVENOMS HealthcareBARBITURATES SCREEN URINENegative NEGATIVENOMS HealthcareBENZODIAZEPINES [...] URINENegativeNEGATIVENOMS HealthcareCLINISYNCNOMS HealthcareHCG ( test) Ql (U)on 82-30-4005Erufrwzzczrugj and review of laboratory resultsAbnormalNOMS HealthcarePreg Test, UrPositiveNegativeNOMS HealthcareNOMS HealthcareUS OB TRANSVAGINALon 38-69-3765ZF OB TRANSVAGINALEXAM: US OB TRANSVAGINAL HISTORY: Dating. [...] II, MD, PHD at 19-Jul-2024 08:55:15 PM [facility] TeleradiologyNormalNot AvailableComment on above:Order Comment: US OB TRANSVAGINAL No LMP recorded.Urinalysis macro (dipstick) panel (U)on 07-11-2742Uiapbgvnr, UA NegativeNegative - 4(70) +++ mg/dLNOMS HealthcareBlood, [...] HealthcareNOMS HealthcareCBC W Auto Differential panel (Bld)on 13-02-0689Siuc form neutrophils (Bld) [#/Vol]CANCELED NOMS HealthcareComment on [...] %NOM HealthcareHemoglobin (Bld) [Mass/Vol]12.8 g/dL11.7 - 15.5 g/dLNONC HealthcareLymphocytes (Bld) [#/Vol]1282 10*3/uLNOMS HealthcareLymphocytes/100 WBC (Bld)26.7 %[facility] Health CenterMCH (RBC) [Entitic mass]30.6 pg27.0 - 33.0 pgNOScotland County Memorial HospitalHC (RBC) [Mass/Vol]32.9 g/dL32.0 - 36.0 g/dLNONC HealthcareComment on above:For adults, a slight decrease in the calculated MCHC value (in the range of 30 to 32 g/dL) is most likely not clinically significant; however, it should be interpreted with caution in correlation with other red cell parameters and the patient's clinical condition. MCV (RBC) [Entitic vol]93.1 fL80.0 - 100.0 fLNONC HealthcareMetamyelocytes (Bld) [#/Vol]CANCELED0 cells/uLNOMS HealthcareComment on above:Result [...] the ancillary.Variant lymphocytes/100 WBC (Bld)CANCELED0 - 10 %[facility] Healthcare Comment on above:Result canceled by the ancillary.WBC (Bld) [#/Vol]4.8 10*3/uL NOMS HealthcareIron and Iron binding capacity panelon 61-61-8192Xdpg [Mass/Vol] 101 ug/dLNOMS HealthcareIron binding capacity [Mass/Vol]340NOMS HealthcareIron saturation [Mass fraction]30NOMS HealthcareLaboratory - Chemistry and Chemistry - challengeon 95-68-4776Kbaezly [Mass/Vol]4.8 g/dL3.6 - 5.1 g/dLNONC Healthcare Albumin/Globulin [Mass ratio]1.8 {ratio}NOMS HealthcareALP [Catalytic activity/Vol]65 U/L31 - 125 U/LNOMS HealthcareALT [Catalytic activity/Vol]16 U/L 6 - 29 U/LNOMS HealthcareAST [Catalytic activity/Vol]14 U/L10 - 30 U/LNOMS HealthcareBilirubin [Mass/Vol]0.6 mg/dL0.2 - 1.2 mg/dLNOMS HealthcareCalcium [Mass/Vol]9.3 mg/dL8.6 - 10.2 mg/dLNOMS HealthcareChloride [Moles/Vol]107 mmol/L 98 - 110 mmol/LNOMS HealthcareCO2 [Moles/Vol]24 mmol/L20 - 32 mmol/LNOMS HealthcareCortisol [Mass/Vol]14.3 ug/dLmcg/dLNONC HealthcareComment on above: Reference Range: For 8 a.m.(7-9 a.m.) Specimen: 4.0-22.0 Reference Range: For 4 p.m.(3-5 p.m.) Specimen: 3.0-17.0 * Please interpret above results accordingly * Creatinine [Mass/Vol]0.71 mg/dL0.50 - 0.96 mg/dLNOMS HealthcareGFR/1.73 sq M.predicted among non-blacks MDRD (S/P/Bld) [Vol rate/Area]122 mL/min/{1.73_m2}> OR = 60 mL/min/1.90b7VHUE HealthcareGlobulin (S) [Mass/Vol]2.6 g/dLNONC HealthcareGlucose [Mass/Vol]95 mg/dL65 - 99 mg/dLHE[facility]LEY [facility] HealthcareComment on above: Fasting reference interval Potassium [Moles/Vol]4.2 mmol/L3.5 - 5.3 mmol/LNOMS HealthcareProtein [Mass/Vol] 7.4 g/dL6.1 - 8.1 g/dLNONC HealthcareSodium [Moles/Vol]139 mmol/L135 - 146 mmol/LNOMS HealthcareUrea nitrogen [Mass/Vol]16 mg/dL7 - 25 mg/dLNOSullivan County Memorial Hospital Urea nitrogen/Creatinine [Mass ratio]SEE NOTE:[facility] HealthcareComment on above: Not Reported: BUN and Creatinine are within reference range. Laboratory - Serology - non-microon 77-65-0469Wvwnifqwfphdv Ab Qn153 [IU]/mLHigh < or = 1 IU/mLNOMS HealthcareTPO Ab Qn27 [IU]/mLHighNINFHEBER VALLEY [facility]ICAL [facility]ENTER HealthcareNo Panel Informationon 91-62-0672Dgrysfodoqurma and review of laboratory resultsAbnormal [facility] Hospitalg Organization Information Site ID: QTW Name: [facility] Address: [address] [place] [address] Director: Urvashi TaborSSM Health St[facility] Organization Information Site ID: QPT Name: [facility] Address: [address] [place] [address], [address] [place] [phone] Director: Yonis Beck MD[address] 85-68-2195Klpt T3 [Mass/Vol] 3.6 pg/mLNormal2.3-4.2Quest DiagnosticsComment on above:Performed By: #### 899, 52589, 866 #### [facility] [place] [address] [address] Attendant: Yonis Beck MDT4, [facility] 02-53-3634Nppw T4 [Mass/Vol]1.1 ng/dLNormal0.8-1.8Quest DiagnosticsComment on above:Order Comment: FASTING:NO FASTING: NOPerformed By: #### 899, 03951, 866 #### [facility] [place] [address] [address] Attendant: Yonis Beck MDTuc[facility] 02-93-0829BUV Qn1.98 m[IU]/LNormalQuest DiagnosticsComment on above:Result Comment: Reference Range > or = 20 Years 0.40-4.50 Ranges First trimester 0.26-2.66 Second trimester 0.55-2.73 Third trimester 0.43-2.91Performed By: #### 899, [address]804, 866 #### [facility] [place] [address] [address] Attendant: Yonis Beck MDG ( test) IA.rapid Ql (U)Ordered By: Marcelle Espinosa on 23-28-3631QVV ( test) Ql (U)NegativeMercy HospitalHCG,Urineon 51-32-7379Qjvk HCG ( test) Ql (U) NegativeNoCount includes the [facility] Physician GroupComment on above:Result Comment: PERFORMED BY: [facility] [address] [place] [address] PATHOLOGIST CERTIFIED LACTATION COUNSELOR RAYMOND SUERO M.D.Performed By: #### UHCG #### [facility] [address] [place] [address] USALon 46-60-9057VKowxxuvp: [id number] Received: 09/03/23 Status: FRANKLYN Metzger Num: [id number] Spec Type: Surgical Subm Dr: Marcelle Espinosa DO Tissues: A Small Intestine - Biopsy/Polyp (SMALL BOWEL BX) B GASTRIC FOR HP (GASTRIC HP) C Esophagus Biopsy (DISTAL ESOPHAGUS) D Esophagus Biopsy (PROXIMAL ESOPHAGUS) E Colon Biopsy (RANDOM RT COLON) F Colon Biopsy (RANDOM LT COLON) Procedures: HE/12, Gross/Micro L4/6, H PYLORI, IHC First AB Age/ Patient Sex Location Account Attending Physician Aleta Castro [id number] Marcelle Espinosa DO SPEC NUM: [id number] RECD: 09/03/23 STATUS: FRANKLYN COTEAnil NUM: [id number] MIRIAM: 09/02/23- SUBM DR: Marcelle Espinosa DO ENTERED: 09/03/[address] [facility] [address]: SPEC TYPE: Surgical DEPT: S [...] mild squamous acanthosis and occasionally associated Specimen: [id number] Received: 09/03/23 Status: FRANKLYN Metzger Num: [id number] Spec Type: Surgical Subm Dr: Marcelle Espinosa DO Tissues: A Small Intestine - Biopsy/Polyp (SMALL BOWEL BX) B GASTRIC FOR HP (GASTRIC HP) C Esophagus Biopsy (DISTAL ESOPHAGUS) D Esophagus Biopsy (PROXIMAL ESOPHAGUS) E Colon Biopsy (RANDOM RT COLON) F Colon Biopsy (RANDOM LT COLON) Procedures: HE/12, Gross/Micro L4/6, H PYLORI, IHC First AB Patient: Aleta Castro [id number] (Continued) Specimen: [id number] Received: 09/03/23 (Continued) Pathological Diagnosis (Continued) Signed (signature on file) Heather Villegas MD 09/05/23 1417 Specimen: [id number] Received: 09/03/23 Status: FRANKLYN Metzger Num: [id number] Spec Type: Surgical Subm Dr: Marcelle Espinosa DO Tissues: A Small Intestine - Biopsy/Polyp (SMALL BOWEL BX) B GASTRIC FOR HP (GASTRIC HP) C Esophagus Biopsy (DISTAL ESOPHAGUS) D Esophagus Biopsy (PROXIMAL ESOPHAGUS) E Colon Biopsy (RANDOM RT COLON) F Colon Biopsy (RANDOM LT COLON) Procedures: , Gross/Micro L4/6, H PYLORI, IHC First AB Patient: MatthewAleta N [id number] (Continued) Specimen: [id number] Received: 09/03/23 (Continued) Pathological Diagnosis (Continued) lymphocytic [...] 0.1 cm, entirely submitted (more content not included)...[facility] Physician GroupInsurance Correspondence Officeon 98-81-5873Ofxqjvnre Correspondence [id number]#1.00TIFFNormal Burrows [facility] HospitalIntraOperative Documentson 98-70-3659FbypeZqogjkyow [id number]#1.00TIFFNoOhio State Harding HospitalPostoperative Documentson 47-78-1883Gaxghgdnmsink Documents [id number]#1.00TIFPremier HealthMain OR Intraoperative Recordon 02-57-8125Gepa OR Intraoperative Record IntraOp Document Type FT Summary Primary Physician: Myron Marroquin DO Finalized Date/Time: 04/25/23 09:04:33 Pt. Name: ALETA CASTRO/Sex: 2000 Female Med Rec #: [id number] Physician: Myron Marroquin DO Financial #: [id number] Pt. Type: A Room/Bed: [place] [address] Admit/Disch: 04/23/23 06:25:15 - 04/23/23 14:50:00 Institution: [...] assist with the block. Patient's heartrate 89, xl54-881% on room air. patient tolerated block well. 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#1.00TIFPremier HealthIntraOperative Documentson 17-74-4117DppchLovjmdqvg Documents [id number]#1.00[facility] CenterOperative Reporton 62-42-5639Fmdcbmadq ReportSURGERY DATE: 04/23/2023 NOTCHING PRESS OPERATOR: Garry Camacho CST PREOPERATIVE DIAGNOSIS: Left knee anterior cruciate ligament tear POSTOPERATIVE DIAGNOSIS: Left knee anterior cruciate ligament tear OPERATION: Left knee diagnostic operative arthroscopy with autograft fyzq-xagqpy-rypj anterior cruciate ligament reconstruction with InternalBrace augmentation ANESTHESIA: General as well as regional block ANESTHESIOLOGIST: KARTHIKEYAN Peacock ESTIMATED BLOOD LOSS: 10 mL INTRAVENOUS FLUIDS: Please see the operative record SPECIMEN: None COMPLICATIONS: None IMPLANTS: Arthrex wqfw-sthdrj-uwcy Tightrope system with the button for the [...] The anterior cruciate ligament was reconstructed using wfij-lnogml-dyba from patellar tendon autograft with this InternalBrace [...] by over reaming with a 10 mm hazmat truck driver. Excess bone debris is again removed. The [...] tensioned on the femo (more content not included)...[facility] HospitalComment on above:Result Comment: Electronically Signed By: Myron Marroquin DO\.br\Date and Time Signed: 04/24/23 07:15 ESTPreoperative Documentson 49-97-7083Wwsaxqbjtynf Documents [id number]#1.00TIFUpper Valley Medical Centersent for Procedure/Surgeryon 76-11-8673Dbjcngi for Procedure/Surgery [id number]#1.00[facility] for Treatmenton 05-73-8897Fzcwnps for Treatment [id number]#1.00[facility] CenterDischarge Instructionson 83-74-7127Pdjqksolq Instructions ALETA CASTRO :2000 Visit Date:04/23/2023 Inpatient [...] been scheduled. Call for any problems. Where: [address] [place] [address]- Business (1) Medications What How Much When Instructions Next Dose New acetaminophen-oxycodone (Percocet 5 mg-325 mg oral tablet) 1 Tablets By Mouth As Directed 1-2 po Q4-6h prn pain Dx: S83.512D Duration: 7 days Pickup at [facility]/pharmacy #2345 New aspirin (Ecotrin 325 mg Tab-EC) 1 Tablets By Mouth Every day Pickup at [facility]/pharmacy #2345 Pharmacy Information [facility]/pharmacy #2345: [address], [place] [phone] Allergies Banana (Throat tightness, Hives, Vomiting) Latex (Hives, Swelling) azithromycin (Hives) midodrine (Numbness) Education Materials [place], [place] [facility] DISCHARGE INSTRUCTIONS: ANTERIOR CRUCIATE [...] any concerns. Myron Marroquin, DO [facility] [address] [place] [address] Reviewed: 06-23 Revised: 03/29 Common Emergency Awareness [...] share your experie (more content not included)...Lorena [facility] Cleveland WestComment on above:Result Comment: Electronically Signed By: Marcelo MCQUEEN, Shyla Acevedo\.ammy\Date and Time Signed: 04/23/23 10:58 ESTH&P Updateon 04-23-2023H&P [id number]#1.00TIFF [facility] HospitalMain OR PACU I Recordon 12-89-5096Oxrf OR PACU I RecordPACU Phase I Document Type FT Summary Primary Physician: Myron Marroquin DO Finalized Date/Time: 04/23/23 12:22:33 Pt. Name: ALETA CASTRO/Sex: 2000 Female Med Rec #: [id number] Physician: Myron Marroquin DO Financial #: [id number] Pt. Type: A Room/Bed: [place] [address] Admit/Disch: 04/23/23 06:25:15 - Institution: Case Times [...] Signatures Signed By: Valencia Jimenez RN 04/23/23 12:22[facility] OR Preoperative Recordon 11-09-4446Cbqt OR Preoperative RecordPreOp Document Type FT Summary Primary Physician: Myron Marroquin DO Finalized Date/Time: 04/23/23 08:50:41 Pt. Name: ALETA CASTRO/Sex: 2000 Female Med Rec #: [id number] Physician: Myron Marroquin DO Financial #: [id number] Pt. Type: A Room/Bed: [place] [address] Admit/Disch: 04/23/23 06:25:15 - Institution: Case Times [...] Signatures Signed By: Lyle Comer RN 04/23/23 08:50NormalRegency Hospital Cleveland WestMonitor Record on 53-19-4174Hhkcafq [id number]#1.00TIFF [facility] HospitalOperative Reporton 85-62-6774Cpphibioc Report Patient: ALETA CASTRO Age: 22 years [...] None, The patient tolerated the procedure as expected.[facility] City HospitalComment on above:Result Comment: Electronically Signed By: Urbano MENDEZ)Cyrus\.br\Date and Time Signed: 04/23/23 07:56 ESTPatient Education - Texton 45-82-6311Splpzgc Education - Text [place], [place] [facility] DISCHARGE INSTRUCTIONS: ANTERIOR CRUCIATE [...] any concerns. Myron Marroquin DO [facility] [address] [place] [address] [phone] Reviewed: 06-23 Revised: 03/29[facility] HospitalProgress Note-Physicianon 99-22-0674Cgxepdue Note-PhysicianPatient: ALETA CASTRO Age: 22 years Sex: [...] Daily, # 21 tab(s), Refills(s) 0, Pharmacy: [facility]/pharmacy #[id number], 165, cm, 04/04/23 6:11:00 EST, Height/Length Dosing, [...] All Problems H/O: hypothyroidism / SNOMED CT 677397391 / Confirmed POTS (postural orthostatic tachycardia syndrome) / SNOMED CT 6809412078 / Confirmed Physical Examination Vital Signs 04/23/2023 [...] Blood Pressure 1 (more content not included)... [facility] HospitalComment on above:Result Comment: Electronically Signed By: Cyrus Modi DO\.br\Date and Time Signed: 04/23/23 11:06 ESTProgress Note-PhysicianPatient: ALETA CASTRO Age: 22 years Sex: Female : 2000 Associated Diagnoses: None Author: Myron Marroquin DO Postoperative Information Procedure: L knee scope, ACL recon Preoperative Diagnosis: L ACL tear. Postoperative Diagnosis: same. Performed by: daniel. Petroleum Transport Driver: Roby Camacho. Specimens Removed: none. Prosthesis: Arthrex. . Estimated Blood Loss: 10 ml. Complications: None. Anesthesia type: General, block.Parkwood HospitalComment on above:Result Comment: Electronically Signed By: [...] Daily, # 21 tab(s), Refills(s) 0, Pharmacy: [facility]/pharmacy #2345, 165, cm, 04/04/23 6:11:00 EST, Height/Length Dosing, 78, kg, 04/04/23 6:11:00 EST, Weight Dosing Percocet 5 mg-325 mg oral tablet: 1 tab(s), Oral, As Directed, 40 tab(s), Refill(s) 0, 1-2 po Q4-6hprn pain Dx: S83.512D Duration: 7 days, [facility]/pharmacy #2345, 165, cm, 04/04/23 6:11:00 EST, [...] All Problems H/O: hypothyroidism / SNOMED CT 156753210 / Confirmed POTS (postural orthostatic tachycardia syndrome) / SNOMED CT 8924517764 / Confirmed, Active Problems (2) H/O: hypothyroidism POTS (postural orthostatic tachycardia syndrome) Histories Past Medical History: No active or resolved past medical history items have been selected or recorded. Family History: No family history items have been selected or recorded. Procedure history: Laparoscopic left ovarian R/o (7601279517). Ovarian cyst removal (919312600). Social History Social & Psychosocial Habits Alcohol [...] U beta hCG Ql Negative . Plan [place] [employer] Anesthesiologists (ASA) physical status classification: Class II. Anesthetic Preoperative Plan: Anesthesia General. Regional Adductor Canal Block Left.Parkwood HospitalComment on above:Result Comment: Electronically Signed By: Urbano Anesthesiology (), Cyrus Zepeda.br\Date and Time Signed: 04/23/23 07:41 ESTU BetaHcg Qualon 81-91-5904BES.beta subunit (U) [Moles/Vol]NegativeNormTrumbull Memorial HospitalComment on above:Performed By: #### [id number] ####[place] [address] [address] [place], [place] [address]Fasrvgx for Procedure/Surgery on 18-61-7847Emwmirt for Procedure/Surgery [id number]#1.00TIFFNoOhio State Harding HospitalCBC w/ Auto Diffon 34-49-1718Eszwkrne Absolute0.0 E9/LNormal0.0-0.2FCommunity Regional Medical CenterComment on above:Performed By: #### [id number] ####[address] [address]Ehuesrckd/100 WBC (Bld)0.4 %Normal0.0-2.0[facility] WestComment on above:Performed By: #### [id number] ####[address] [address]Dvm Absolute0.1 E9/LNormal0.0-0.5FCommunity Regional Medical CenterComment on above:Performed By: #### [id number] ####[address] [address]Giydlnmjsdn/100 WBC (Bld)1.0 %Normal0.0-8.0[facility] Cleveland WestComment on above:Performed By: #### [id number] ####[address] [address]Atagbnqvkes distribution width (RBC) [Ratio]12.6 %Hnemce38.9-14.2FCommunity Regional Medical Center Comment on above:Performed By: #### [id number] ####[address] [address]Rymtohfllx (Bld) [Volume fraction] 39.0 %Hnawlf88.0-46.0[facility] Cleveland WestComment on above:Performed By: #### [id number] ####[address] [address]Woemnjgsvn (Bld) [Mass/Vol]13.1 g/aZZaqhxv69.0-16.0[facility] Cleveland WestComment on above:Performed By: #### [id number] ####[address] [address]Uflia Absolute1.4 E9/LNormal 1.0-4.0[facility] Cleveland WestComment on above:Performed By: #### [id number] ####[address] [address] Lymphocytes/100 WBC (Bld)22.2 %Slrstz43.0-50.0[facility] Cleveland WestComment on above:Performed By: #### [id number] ####[address] [address]VUM (RBC) [Entitic mass]30.6 pgNormal 27.0-34.0[facility] Cleveland WestComment on above:Performed By: #### [id number] ####[address] [address]DLPF (RBC) [Mass/Vol]33.7 g/mZXlzsvl30.4-36.0[facility] WestComment on above:Performed By: #### [id number] ####[address] [address]RXN (RBC) [Entitic vol]91.0 fOLdpvoc71.0-100.0 [facility] Cleveland WestComment on above:Performed By: #### [id number] ####[address] [address]Jufe Absolute0.4 E9/LNormal0.2-1.0[facility] Cleveland WestComment on above: Performed By: #### [id number] ####[place] [address] [address]Qzbzmzzzl/100 WBC (Bld)5.6 %Normal4.0-14.0[facility] Cleveland WestComment on above:Performed By: #### [id number] ####[place] [address] [address]Libnbp Absolute4.6 E9/LNormal2.0-7.5FCommunity Regional Medical CenterComment on above:Performed By: #### [id number] ####[address] [address]Sqapgw Auto70.8 %Cxlnpz98.0-75.0[facility] Cleveland WestComment on above:Performed By: #### [id number] ####[address] [address]Xrdjivtt253.0 E9/CHspoqn234.0-500.0[facility] Cleveland WestComment on above:Performed By: #### [id number] ####[address] [address]Khvvqchd mean volume (Bld) [Entitic vol]7.7 fLNormal6.4-10.8[facility] WestComment on above:Performed By: #### [id number] ####[address] [address]PTE8.3 E12/LNormal4.3-5.9[facility] WestComment on above:Performed By: #### [id number] ####[address] [address]KWA1.5 E9/LNormal4.0-11.0 [facility] Cleveland WestComment on above:Performed By: #### [id number] ####[address] [address] Consent for Treatmenton 44-18-9012Ueflnvr for Treatment [id number]#1.00TIFFNormalFisher Medstar Harbor HospitalHEMATOLOGYOrdered By: SYSTEM SYSTEM on 19-28-3409Zcvpqskn Absolute0.0 E9/L Normal0.0 - 0.2 E9/LRemisol HemeBasophils/100 WBC (Bld)0.4 %Normal0.0 - 2.0 % Remisol HemeEos Absolute0.1 E9/LNormal0.0 - 0.5 E9/LRemisol HemeEosinophils/100 WBC (Bld)1.0 %Normal0.0 - 8.0 %Remisol HemeErythrocyte distribution width (RBC) [Ratio]12.6 %Wqkfyi24.9 - 14.2 %Remisol HemeHematocrit (Bld) [Volume fraction] 39.0 %Qxhjon42.0 - 46.0 %Remisol HemeHemoglobin (Bld) [Mass/Vol]13.1 g/dLNormal 12.0 - 16.0 gm/dLRemisol HemeLymph Absolute1.4 E9/LNormal1.0 - 4.0 E9/LRemisol HemeLymphocytes/100 WBC (Bld)22.2 %Wfjvep62.0 - 50.0 %Remisol HemeMCH (RBC) [Entitic mass]30.6 zxIjzrcz25.0 - 34.0 pgRemisol HemeMCHC (RBC) [Mass/Vol]33.7 g/vMAcmwcg14.4 - 36.0 gm/dLRemisol HemeMCV (RBC) [Entitic vol]91.0 gFJqnblp86.0 - 100.0 fLRemisol HemeMono Absolute0.4 E9/LNormal0.2 - 1.0 E9/LRemisol Heme Monocytes/100 WBC (Bld)5.6 %Normal4.0 - 14.0 %Remisol HemeNeutro Absolute4.6 E9/LNormal2.0 - 7.5 E9/LRemisol HemeNeutro Auto70.8 %Wxszal40.0 - 75.0 %Remisol TtzrGccponzj475.0 E9/OVatrvi956.0 - 500.0 E9/LRemisol HemePlatelet mean volume (Bld) [Entitic vol]7.7 fLNormal6.4 - 10.8 fLRemisol HemeRBC4.3 E12/LNormal4.3 - 5.9 E12/LRemisol HemeWBC6.5 E9/LNormal4.0 - 11.0 E9/LRemisol HemeCOVID/FLU/RSV RT-PCRon 17-61-6029HODP-CoV-2 (COVID-19) RNA QUEENIE+probe Ql (Unsp spec)Negative [facility] [employer] Other COVID/FLU/RSV RT-PCRNegativeJeanerette GAMINSIDE Other Quick Strepon 04-01-2023S. pyogenes Org specific cx Ql (Throat)NegativeJeanerette GAMINSIDE Other Qudtm StrepClinicient GAMINSIDE Other US Gallbladderon 95-29-3959DS GallbladderClinical History: Right upper quadrant pain. Diarrhea. [...] and signed by Cornelius Hernandez on 07/23/2022 1043NoDayton Osteopathic Hospital SpecialistMAYO CL[facility]IC [facility] ACOG PANEL 2: 21 to 29on 05-09-2022..NormalUniversity Hospitals Lake West Medical CenterComment on above:Performed By: #### [id number] #### [facility] [address] [place] [address] Dr. Yovanny Kelly Gdln ACOG Sqartym92-70QbsmxsCvqCleveland ClinicComment on above:Performed By: #### [id number] #### [facility] [address] [address] [address] Yovanny VillegasDIAGNOSIS:[facility] on above: Result Comment: NEGATIVE FOR INTRAEPITHELIAL LESION OR MALIGNANCY.Performed By: #### [id number] #### [facility] [address] [place] [address] Dr. Yovanny VillegasMethodology:[facility] on above: Result Comment: This liquid based ThinPrep(R) pap test was screened with the use of an image guided system.Performed By: #### [id number] #### [facility] [address] [place] [address] Dr. Yovanny VillegasNote:CommentCleveland Clinic Mentor Hospital on above:Result Comment: The Pap smear is a screening test designed to aid in the detection of premalignant and malignant conditions of the uterine cervix. It is not a diagnostic procedure and should not be used as the sole means of detecting cervical cancer. Both false-positive and false-negative reports do occur. .Performed By: #### [id number] #### [facility] [address] [place] [address] Dr. Yovanny VillegasPerformed by:CommentCleveland Clinic Mentor Hospital on above: Result Comment: Deedee Navarrete Instrument Assembler (ASCP)Performed By: #### [id number] #### [place] [address] [address] Yovanny VillegasReflex Criteria:[facility] on above:Result Comment: The HPV DNA reflex criteria were not met with this specimen result therefore, no HPV testing was performed. .Performed By: #### [id number] #### [facility] [address] [place] [address] Dr. Yovanny VillegasSpecimen adequacy:CommentCleveland Clinic Mentor Hospital on above:Result Comment: Satisfactory for evaluation. Endocervical and/or squamous metaplastic cells (endocervical component) are present.Performed By: #### [id number] #### [place] [address] Dr. Yovanny VillegasCHLAMYDIA/GONOCOCCUS QUEENIE (SWAB/URINE/PAPon 90-69-5817Gkgqghxql trachomatis, NAANegativeNormalNegativeUniversity Hospitals Lake West Medical CenterComment on above: Performed By: #### CT/NGNA #### [facility] [address] [place] [address] Dr. Yovanny VillegasNeisseria gonorrhoeae, NAANegativeNormalNegativeUniversity Hospitals Lake West Medical CenterComment on above:Performed By: #### CT/NGNA #### [facility] [address] [place] [address] Dr. Yovanny VillegasVAGINITIS/VAGINOSIS DNA PROBEon 74-73-3125Mteoivd speciesNegative NormalNegativeUniversity Hospitals Lake West Medical CenterComment on above:Performed By: #### VAGINT #### [facility] [address] [place] [address] Dr. Yovanny VillegasGardnerella vaginalisNegativeNormalNegativeUniversity Hospitals Lake West Medical Center Comment on above:Performed By: #### VAGINT #### [facility] [address] [place] [address] Dr. Yovanny VillegasTrichomonas vaginalisNegativeNormalNegOhio State University [facility] Comment on above:Performed By: #### VAGINT #### [facility] [address] [place] [address] Dr. Yovanny VillegasXR KNEE LEFT (3 VIEWS)on 67-43-4699DY KNEE LEFT (3 VIEWS) EXAMINATION: THREE XRAY [...] by: Deshaun Aguilar MD 05/24/21 Final resultNormalMercy Yale New Haven Children's Hospital fracture or dislocation. [facility] RIS CONSOLIDATEDEXAMINATION: THREE XRAY [...] abnormality seen. IMPRESSION: No fracture or dislocation. [facility] Phone: radiology Study observation (narrative)[facility] Phone: XR KNEE LEFT (3 VIEWS)Ordered By: Deshaun Aguilar on 18-75-2230FdvrqSP3H Phone: COVID Quick Testingon 59-76-8964XxpmrfFylarbzeVdrcy [employer] Other Quick Strepon 05-01-2021. pyogenes Org specific cx Ql (Throat)PositiveJeanerette GAMINSIDE Other Quick StrepJeanerette GAMINS[employer] Other COVIU Quick Testingon 35-38-7118KkpgryPboziahxYjpvb GAM[employer] Other Quick Fluon 98-12-0380NUKYI Ab CF (S) [Titer]Negative [facility] [employer] Other FLUBV Ab CF (S) [Titer]NegativeJeanerette GAMINSIDE Other XR SACRUM COCCYX (MIN 2 VIEWS)on 57-63-9361XD SACRUM COCCYX (MIN 2 VIEWS)EXAMINATION: THREE XRAY VIEWS OF THE SACRUM/COCCYX 12/14/2020 3:10 am COMPARISON: None. HISTORY: ORDERING SYSTEM PROVIDED HISTORY: fall at work - hit flmjs1qg TECHNOLOGIST PROVIDED HISTORY: fall at work - hit bniyv8vb FINDINGS: The sacroiliac joints are normally aligned. The visualized portions the pelvis are. There is no fracture of the sacrum or coccyx evident. IMPRESSION: No acute osseous abnormality of the sacrum or coccyx evident. Interpreted by: Loc Oswald MD Signed by: Loc Oswald MD 12/14/20 Final resultNoUniversity Hospitals Conneaut Medical CenterXR SACRUM COCCYX (MIN 2 VIEWS)Ordered By: David Dominguez on 05-54-8968Ye acute osseous abnormality of the sacrum or coccyx evident.[facility] Phone: eXAMINATION: THREE XRAY VIEWS OF THE SACRUM/COCCYX 12/14/2020 3:10 am COMPARISON: None. HISTORY: ORDERING SYSTEM PROVIDED HISTORY: fall at work - hit zyomo0ml TECHNOLOGIST PROVIDED HISTORY: fall at work - hit iismz1fo FINDINGS: The sacroiliac joints are normally aligned. The visualized portions the pelvis are. There is no fracture of the sacrum or coccyx evident. [facility] Phone: edi, [facility] Incoming Radiant Results From Jack[employer]/Idiro - 12/14/2020 3:24 AM EDT EXAMINATION: THREE XRAY VIEWS OF THE SACRUM/COCCYX 12/14/2020 3:10 am COMPARISON: None. HISTORY: ORDERING SYSTEM PROVIDED HISTORY: fall at work - hit lbdgh5ix TECHNOLOGIST PROVIDED HISTORY: fall at work - hit zvhjn7yo FINDINGS: The sacroiliac joints are normally aligned. The visualized portions the pelvis are. There is no fracture of the sacrum or coccyx evident. IMPRESSION: No acute osseous abnormality of the sacrum or coccyx evident. [facility] Phone: [facility] HospitalLouisville Solutions Incorporated Phone: ct HEAD WO CONTRASTon 79-91-0911QM HEAD WO CONTRAST EXAMINATION: CT OF THE [...] by: Maira Cruz MD 09/19/20 Final resultNormalMercy Rockville General HospitalCT Head WO ContrastOrdered By: Luis Carlos Fragoso on 78-08-7610Amzrgolqtqyp noncontrast CT examination of the brain.[facility] Phone: eXAMINATION: CT OF THE HEAD WITHOUT [...] abnormality of the visualized skull or soft tissues.[facility] Phone: evinay [facility] Incoming Radiant Results From [employer]/Idiro - 09/19/2020 4:42 PM EDT EXAMINATION: CT [...] Unremarkable noncontrast CT examination of the brain. Dr Lal [employer] Work Phone: [facility] HospitalJack On Block Work Phone: coding Summaryon 64-13-1429Smxpgg SummaryCODING DATE: 10/27/2019 [facility] STATUS: Home PAYOR: [place] ADMIT DX: REASON FOR VISIT DX: J02.9 [...] By: Ashley Pablo Date Saved: 10/27/2019 03:10 [facility]2019 Novel Coronavirus (CoVID-19), QUEENIE on 14-32-7700FLYX-CoV-2, QUEENIE (COVID-19) LCNot DetectedNot [facility] HospitalComment on above:Order Comment: [id number] Comment: This test was developed and its performance characteristics determined by Method. This test has not been FDA cleared [...] detected) result in this assay. Performed At: [facility] [address] [facility] [place] [id number] Ruba Washburn MD Ph:[phone] By: #### [id number] #### [facility] (DEFAULT) [address] [place] [address]Piieori Formson 30-09-5918Mscadkn Forms [id number]#1.00OTGTDelaware County HospitalCNCO on 02-63-6377QUOMEsuzci TextToll Free: [phone].[facility].org/cancer [facility] Ctkgfkbl[address] [place] [address]Ozxrz: [phone]: [facility] [place], [place] [address]Dtrom: [phone]: [facility] [address] [place], [place] [address]Aovfl: [phone]: Steve Pablo M.D., Ronaldo Marquez M.D.David Becerril M.D.Papito Sood D.O..Carin Hoover M.D. FACROSaju A. Rajan, M.D.Date: July 15, 2017Re: Aleta TanishaSKYLER WHOM IT MAY CONCERN:She was seen in our office today.Sincerely,Katelin Cardona PSR(signed electronically to expedite mailing)Kindred HealthcareCNOVSPon 44-67-0565VYLPCAPgtow (SP) Office (HEMACL) --------ALETA GARAY ([id number]) 99 FDate Time Provider Department07/15/17 3:15 PM [...] nourishedNeuro: Gait normal.Collected: 05/15/17 104 3Resulting lab: [facility] LABORATORYValue: (NOTE)Comment: Performing Pathologist: Jo-Ann [...] list. no changes .Referring Provider: DAVID BECERRIL [[id number]]Allergies As of Date: 07/15/2017(No Known Allergies)Date Reviewed: [...] .Encounter Status:Closed by DAVID BECERRIL MD on 07/17/17[facility] 32-65-0680YJWENCXVXBD ID: [id number]: David Escaleraervice: (none)Author Type: PhysicianType: Progress NotesFiled: [...] well nourishedNeuro: Gait normal.Collected: 05/15/17 1043Resulting lab: [facility] LABORATORYValue: (NOTE)Comment: Performing Pathologist: Jo-Ann [...] certainly could consider further testingAlfred Sandeep Becerril MDNormalCCleveland Clinic Foundationlet Fun Scrnon 97-58-3964OTH/ADP Llrdlxesv52 CT (sec) Normal<118CleRegency Hospital Company on above:Result Comment: Results are reported as Closure Time (CT) in seconds.Performed By: #### PLTSCP ####[address] [phone] 44-5755COL/EPI Rwmlfjacf949 CT (sec)Normal<199[facility] on above:Result Comment: Results are reported as Closure Time (CT) in seconds. Performed By: #### PLTSCP ####[address] [phone] Func Scr Interp(NOTE)NormalFayette County Memorial Hospital on above:Result Comment: Performing Pathologist: Jo-Ann [...] a bleeding disorder. Performed By: #### PLTSCP ####[address] [phone] CBCDIF (for COMMUNITY HEALTH use only)on 14-22-1639Ggb Baso<0.03Normal<0.11CUniversity Hospitals Samar[facility] Center on above: Performed By: #### RCBCDF ####[address] [phone] Mono0.53 k/uLNormal<0.87[facility] on above:Performed By: #### RCBCDF ####[address] [phone] Neut2.59 k/uL Normal1.45-7.50[facility] on above:Performed By: #### RCBCDF ####[address] [place], [place] [phone]/100 WBC Auto (Bld)0.4 %NormalFayette County Memorial Hospital on above:Performed By: #### RCBCDF ####[place] [address] [address], [place] [phone] DiffNormal [facility] on above:Performed By: #### RCBCDF ####[address] [place] [address] [address], [place] [phone] [phone] 10*3/uLNormal<0.46[facility] on above:Performed By: #### RCBCDF ####[place] [address] [address], [place] [phone]/100 leukocytes1.5 %Normal [facility] on above:Performed By: #### RCBCDF ####[place] [address] [address], [place] [phone] 44-5755Erythrocyte distribution width Auto Ratio (RBC)12.2 %Kqzbbr08.5-15.0 [facility] on above:Performed By: #### RCBCDF ####[place] [address] [address], [place] [phone] 44-5755Erythrocytes (RBC)4.15 10*6/uLNormal3.90-5.20[facility] on above:Performed By: #### RCBCDF ####[address] [place] [address] [address], [place] [phone] (RBC)0.0 /100 WBCNormal 0[facility] on above:Performed By: #### RCBCDF ####[address] [place] [address] [address], [place] [phone] 44-5755Erythrocytes (RBC)10*6/uLNormal<0.01[facility] on above:Performed By: #### EVANDF ####[place] [address] AveCDevon [place]ille [phone] (HCT)39.4 %Okysha28.0-46.0 [facility] on above:Performed By: #### EVANDF ####[place] [address]CEdward Ville [phone] mass conc (Bld)12.8 g/sKQyzgxi41.5-15.5C[facility] on above:Performed By: #### RCISAIAHDF ####[place] [phone] 10*3/uLNormal1.00-4.00[facility]ment on above:Performed By: #### RCISAIAHDF ####[place] [address] AveCDevon Ville [phone]/100 ckuulkzqbv04.9 %NormalF[facility] County Memorial Hospital on above:Performed By: #### RCISAIAHDF ####[address] AvSarah Ville [phone] pGNormal 26.0-34.0[facility] on above:Performed By: #### RCBCDF ####[place] [address]CD[address] [phone] mass conc (RBC)32.5 g/eKNcefqz84.5-36.0[facility] Comment on above:Performed By: #### RCBCDF ####[place] [address] [phone] gPElafzh20.0-100.0[facility] on above:Performed By: #### RCBCDF ####[place] [address]CPhil[place], [place] [phone]/100 .6 %NormalChillicothe Va Medical CenterComment on above:Performed By: #### RCBCDF ####[facility]CPhil[place], [place] [phone]/100 WBC Auto (Bld)56.6 %NormalFayette County Memorial Hospital on above:Performed By: #### RCBCDF ####[place] [address]CPhil[address], [place] [phone] mean volume (PMV)10.2 fLNormal9.0-12.7CMarion Hospitalment on above:Performed By: #### RCBCDF ####[place] [address]CPhil[place], [place] [phone] 10*3/wOZlltri143-417ZzgektkodChillicothe Va Medical Center Comment on above:Performed By: #### RCBCDF ####[place] [address]CPhil[place], [place] [phone] (Leukocytes)4.58 10*3/uLNormal 3.70-11.00[facility] Hospitalment on above:Performed By: #### RCBCDF ####[facility] AvCommerce, [place] [phone] 73-42-3635KFRPVjtmbs TextToll Free: [email or web address]/cancer [facility] Ssxhrw[address] [place], [place] [address]Maiuv: [phone]: [facility] Centeryde[address] [place], [place] [address]Gnchy: [phone]: [facility] [place], [place] [address]Oeyfb: [phone]: Steve Pablo M.D., Ronaldo Marquez M.D.David Becerril M.D.Papito Sood D.O..Myriam Chaudhari M.D.Deandre Montoya M.D. Matthew Huff M.D.Date: April 29, 2017Re: Aleta Elliott WHOM IT MAY CONCERN:She was seen in our office today.Sincerely,Karly Pizarro Psr(signed electronically to expedite mailing)Kindred HealthcareCNOVSPon [phone] (SP) Office (HEMACL) --------ALETA GARAY ([id number]) 89 FDate Time Provider Department04/29/17 2:30 PM [...] patientand her mother at length. Would check [id number] at this time, further testingbased on results.1. [...] (HCC) [D69.1]Order(s):PLATELET FUNCTION SCREEN [SQPLTSCP] Order #: [id number] FUTURE CBC + DIFF (FOR REMOTE COMMUNITY HEALTH USE) [SQRCBCDF] Order #: [id number] FUTUREDisposition: Return in about 6 weeks (around [...] Status:Closed by DAVID BECERRIL MD on 04/29/17Normal [facility] CenterPROGRESSon [id number] ID: [id number]: David LylessService: (none)Author Type: PhysicianType: Progress NotesFiled: [...] and her mother at length. Would check HJO011 at this time, furthertesting based on results.1. 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, choice of management likely to be influenced by history ofPOTSAlfrChery Tomas [facility] Vital Signs Date TimeVital SignValuePerforming VftzpyvqkMwwvcfoy93-81-9515 14:02-0500Body mass index (BMI) [Ratio]30 kg/m2Pretty ARELLANO Work Phone: [facility] CenterDerxquwqsk24-04-4633 14:02-0500Body xxuorx47.29 kgPretty ARELLANO Work Phone: [phone], 1928–19833[facility] CenterNygcynlitv11-76-6540 14:02-0500Diastolic blood norwnhgd30 mm[Hg]Pretty ARELLANO Work Phone: [employer]tersSullivan County Memorial HospitalXtvtnekelh74-38-3946 14:02-0500Systolic blood ajagtmkl01 mm[Hg]Pretty ARELLANO Work Phone: [phone] CenterEtyzyburmq29-92-5517 13:04-0400Body mass index (BMI) [Ratio]29.59 kg/t1Xouos William DO Work Phone: [employer] OutfittersSullivan County Memorial HospitalRtmbztiphr64-66-0179 13:04-0400Body ywfjje81.2 kg Doc William DO Work Phone: [phone]-[facility], [facility]–1983[facility] CenterYxvjwszhep04-04-6991 13:04-0400Diastolic blood mm[Hg]Doc William DO Work Phone: [facility] CenterNjnpyuemyg00-42-4072 13:04-0400Systolic blood bqjozwmy966 mm[Hg]Doc William DO Work Phone: [phone] [place], [place] [address]Lwzwizxric06-09-5845 13:57-0400Body mass index (BMI) [Ratio]29.42 kg/m9Rimmdtzx Enio [employer] Work Phone: 1(756)[facility] [place], [place] [address]Xbswlqdija90-94-4813 13:57-0400Body bvaits62.75 kgKrselene Qiuly [employer] Work Phone: [phone] [place], [place] 5359810-08-2025 13:57-0400Diastolic blood mm[Hg]Luna Enio [employer] Work Phone: [phone])[facility] [place], [place] [address]Iteykmfgct93-32-1897 13:57-0400Systolic blood ghzigjkv397 mm[Hg]Luna Enio [employer] Work Phone: 1(095)[address] [place], [place] 5359809-24-2025 14:07-0400Body mass index (BMI) [Ratio]28.84 kg/r9Wsllu William DO Work Phone: [phone])[address] [place], [place] 5359809-24-2025 14:07-0400Body xavlph93.2 kg Doc William DO Work Phone: [phone])[facility] [place] [address]-24-2025 14:07-0400Diastolic blood bopoxian86 mm[Hg]Doc William DO Work Phone: 1(361)[facility] [place], [place] [address]Tizlvtytdb22-13-0454 14:07-0400Systolic blood zlpsozzm244 mm[Hg]Doc William DO Work Phone: 1(524)[address] [place] [address]-10-2025 14:04-0400Body mass index (BMI) [Ratio]29.95 kg/b7HzeeuoayLuna Conraderly [employer] Work Phone: [phone])[address] [place] [address]-10-2025 14:04-0400Body sndoop73.15 kgKrniviaa Enio [employer] Work Phone: [phone])[facility] [place] [address]-10-2025 14:04-0400Diastolic blood ryplfekm14 mm[Hg]Luna Enio [employer] Work Phone: [facility] CenterQrcddhdzrz76-52-0896 14:04-0400Systolic blood oqdxifrp441 mm[Hg]Luna Enio SU Work Phone: [phone]-[facility], 1928–19832[facility] CenterLuhkprphih82-27-4732 14:39-0400Body mass index (BMI) [Ratio]28.49 kg/m2Pretty ARELLANO Work Phone: [facility] CenterWzngwzluvy55-29-9947 14:39-0400Body ttceae06.3 kg Pretty ARELLANO Work Phone: [phone] [place], [place] [address]Iicbalsayh77-15-7582 14:39-0400Diastolic blood tfsqwqyl91 mm[Hg]Pretty ARELLANO Work Phone: 1([phone])632-[address] [place], [place] [address]Vhqnhnhras84-13-1583 14:39-0400Systolic blood mm[Hg]Pretty ARELLANO Work Phone: [phone])001-[address] [place], [place] [address]Rffwcwhkdn86-03-3596 15:34-0400Body mass index (BMI) [Ratio]28.29 kg/y4Wofdi William DO Work Phone: 1(774)855-[address] [place], [place] [address]Bzaegnjjpr78-20-4760 15:34-0400Body rbiocj67.75 kgCorey William DO Work Phone: [phone] [place], [place] [address]Gmuvmrazgn80-36-6542 15:34-0400Diastolic blood rofpsnhz16 mm[Hg]Doc William DO Work Phone: [phone])889-[address] [place], [place] [address]Zyefhpxneq72-29-1906 15:34-0400Systolic blood bukxcdho558 mm[Hg]Doc William DO Work Phone: [phone])158-[address] [place], [place] [address]Zbcnvraxeg15-23-9470 14:27-0400Body mass index (BMI) [Ratio]30.21 kg/t1Seaod William DO Work Phone: [phone] [place], [place] [address]Acnqvxbyip07-12-9811 14:27-0400Body zoodtu14.83 kgCorey William DO Work Phone: [phone])300-[facility], 1928–[address]31[facility] CenterWrzehirzwb50-44-1904 14:27-0400Diastolic blood mm[Hg]Doc William DO Work Phone: [facility] CenterCydohbkxwu04-98-9861 14:27-0400Systolic blood zizojxkg382 mm[Hg]Doc Thomas DO Work Phone: [facility] CenterUkdqnmkqpi07-57-8488 15:41-0500Body ukyxtm589.6 cmDavid Pocos DO Work Phone: [facility] CenterMszkxslych31-14-3429 15:41-0500Body mass index (BMI) [Ratio]30.21 kg/v8Rtbxz Pocos DO Work Phone: [facility] CenterWvbgveqamc52-01-1063 15:41-0500Body gmowib74.83 kgDavid Pocos DO Work Phone: [facility] CenterXytzwsimpi53-21-5994 15:26-0500Body .6 cmEtyshawn Payne MD Work Phone: [facility] CenterXbawduwylo54-21-9987 15:26-0500Body mass index (BMI) [Ratio]30.21 kg/m2HmbwiuRosalie Payne MD Work Phone: [facility] CenterNubyypbbto85-53-1131 15:26-0500Body amurvu48.83 kgRosalie Payne MD Work Phone: [facility] CenterNizkxbligl33-18-6981 15:26-0500Heart rate88 /min Rosalie Payne MD Work Phone: [facility] CenterIoviwammgb02-39-6753 15:26-2759QtI3% (BldA) [Mass fraction]98 %Rosalie Payne MD Work Phone: [facility] CenterHuaqeanjho00-57-1732 08:00-0400Body .6 cmKelvin Schwartz DO Work Phone: [facility] CenterUwobhkabns93-51-3511 08:00-0400Body mass index (BMI) [Ratio]30.9 kg/g2SnbgpKelvin Schwartz DO Work Phone: [facility] CenterTbdgjlxqjj21-79-6924 08:00-0400Body emmbwj06.65 kgKelvin Schwartz DO Work Phone: [facility] CenterSilkzkpqao92-75-4199 14:25-0400Diastolic blood mm[Hg]MD Rosalie Payne Work Phone: 1(255)915-[address] [place], [place] 3265306-17-2024 14:25-0400 Heart rate80 /minMD Rosalie Payne Work Phone: 1(945)[address] [place], [place] 2802106-17-2024 14:25-0400 Respiratory rate18 /minMD Rosalie Payne Work Phone: 1(045)281-[address] [place], [place] 3265306-17-2024 14:25-0400 SaO2% (BldA) [Mass fraction]100 %MD Rosalie Payne Work Phone: 1(173)[address] [place], [place] 2802106-17-2024 14:25-0400 Systolic blood dayzunav437 mm[Hg]MD Rosalie Payne Work Phone: 1(300)[address] [place], [place] 2802106-17-2024 11:31-0400 Body rixlgh950.1 cmVT Rosalie Payne Work Phone: 1(886)[facility] [place], [place] 3265306-17-2024 11:31-0400 Body .4 [degF]MD Rosalie Payne Work Phone: 1([phone] [place], [place] 3265306-17-2024 11:31-0400 Body .11 kgMD Rosalie Payne Work Phone: 1(672)146-[address] [place], [place] 3265305-09-2024 14:21-0400 Body sujdng834.1 [facility] 14:21-0400Body mass index (BMI) [Ratio]28.3 kg/d3DiopxemlnMercy Hospital05-09-2024 14:21-0400Body ywjjpa82.11 kgMer[facility] Hospital05-09-2024 14:-0400Diastolic blood ojtgyojw23 mm[Hg][facility] 07-25-2023 14:21-0400Heart rate81 /minMercy Hospital 07-25-2023 14:0400Systolic blood wqwdyqww112 mm[Hg][facility]01-17-2024 14:55-0500Diastolic blood uoooodiv62 mm[Hg]Myron Caroos [address] [place], [place] 5106201-17-2024 14:55-0500Heart njjz323 /minDavid Pocos [address] [place], [place] 5106201-17-2024 14:55-0500Mean blood uulxzmpy340 mm[Hg]Myron Caroos [address] [place], [place] 5106201-17-2024 14:55-0500 Systolic blood oxmbqknq815 mm[Hg]Myron Caroos [address]01-17-2024 14:53-0500Heart rate98 /minDavid Pocos [address]01-17-2024 14:53-8663VzU6% (BldA) [Mass fraction]99 %Myron Caroos [address] [place], [place] 5106201-17-2024 14:53-0500 Diastolic blood tbduokfj92 mm[Hg]Myron Caroos [address] [place], [place] 5106201-17-2024 14:53-0500Mean blood dazridbt425 mm[Hg]Myron Caroos [address]01-17-2024 14:53-0500 Systolic blood mm[Hg]Myron Vaniaos [address] [place], [place] 5106201-17-2024 14:52-0500 Respiratory rate16 /minDavid Pocos [address] [place], [place] 5106201-15-2024 10:45-0500Body nucypq302.1 cmAmanda Kristine Other [facility] [employer] Other 01-15-2024 10:45-0500Body mass index (BMI) [Ratio] 28.29 kg/t9Stghxk Kristine Other north [employer] Other 01-15-2024 10:45-0500Body zjuzyjhfzmn19.1 [degF]Destinee Kristine Other [employer] Other 01-15-2024 10:45-0500Body .11 kgAmanda Kristine Other [employer] Other 01-15-2024 10:45-0500Respiratory rate18 /minAmanda Kristine Other [employer] Other 01-15-2024 10:45-8671QpA8% (BldA) [Mass fraction]99 % Destinee Kristine Other [employer] Other 06-06-2022 11:25-0400Body grgjzo597.1 cmPamela Martha Other [employer] Other 06-06-2022 11:25-0400Body mass index (BMI) [Ratio] 27.12 kg/j3Hrwshi Martha Other [employer] Other 06-06-2022 11:25-0400Body glvpwuqfoem65.6 [degF]Carlie Martha Other [employer] Other 06-06-2022 11:25-0400Body ojzrrn49.94 kgPamela Martha Other [employer] Other 06-06-2022 11:25-0400Respiratory rate18 /minPahollya Martha Other [employer] Other 06-06-2022 11:25-5219RhP5% (BldA) [Mass fraction]97 % Carlie Thomas Other nort [employer] Other 03-09-2022 20:36-0500Body thnnxrljedc65.7 [degF]Artis Yoder DO Work Phone: [facility] Rkfojn56-24-4609 20:36-0500Diastolic blood aikgdgbp99 mm[Hg]Artis Carter DO Work Phone: [facility] HospitalJack On BlockJrnxdr27-87-5924 20:36-0500Heart rtcd697 /min Artis Yoder DO Work Phone: [facility] HospitalJack On BlockYcfofm00-13-4061 20:36-0500Respiratory rate16 /minArtis Carter DO Work Phone: [facility] Ljotuf85-32-5005 20:36-5819DkJ4% (BldA) [Mass fraction]97 %Artis Yoder DO Work Phone: [facility] Edozot61-68-0873 20:36-0500Systolic blood sfokjhvx349 mm[Hg]Artis Yoder DO Work Phone: [facility] HospitalJack On BlockQyngiz45-94-9618 13:10-0500Body .1 cm Adriana Evangelista Other noClinicient [employer] Other 02-24-2022 13:10-0500Body mass index (BMI) [Ratio] 27.12 kg/n3PmvpxddzwAdriana Evangelista Other [employer] Other 02-24-2022 13:10-0500Body rhyjptisjwo81.8 [degF] Adriana Evangelista Other [employer] Other 02-24-2022 13:10-0500Body pkwguy74.94 kgAdriana Evangelista Other [employer] Other 02-24-2022 13:10-0500Diastolic blood mm[Hg] Adriana Evangelista Other [employer] Other 02-24-2022 13:10-0500Respiratory rate18 /minSfeliz Evangelista Other [employer] Other 02-24-2022 13:10-0922ZtS5% (BldA) [Mass fraction]99 % Adriana Evangelista Other [employer] Other 02-24-2022 13:10-0500Systolic blood aujrrunj624 mm[Hg] Adriana Evangelista Other [employer] Other 02-14-2022 11:40-0500Body woimfc480.1 cmPamela Martha Other [employer] Other 02-14-2022 11:40-0500Body mass index (BMI) [Ratio] 26.62 kg/z7Swpxpkshreyas Thomas Other [employer] Other 02-14-2022 11:40-0500Body vaebmtjjypp55.6 [degF]Carlie Lewismond Other [employer] Other 02-14-2022 11:40-0500Body ropodn86.58 kgPashreyas Thomas Other [employer] Other 02-14-2022 11:40-0500Respiratory rate18 /minCarlie Thomas Other [employer] Other 02-14-2022 11:40-1390TnT3% (BldA) [Mass fraction]99 % Carlie Lewismond Other [place] [employer] Other 01-21-2022 12:00-0500Body tdfoio476.1 Ivettnicolleemerita Ramirez Other [facility] [employer] Other 01-21-2022 12:00-0500Body mass index (BMI) [Ratio] 26.62 kg/g9ZshmlbSandeep Ramirez Other [employer] Other 01-21-2022 12:00-0500Body ifuxesozubh44.6 [degF]Sandeep Ramirez Other [employer] Other 01-21-2022 12:00-0500Body pyzhzs33.58 kgSandeep Ramirez Other [facility] [employer] Other 01-21-2022 12:00-7087AwH0% (BldA) [Mass fraction]98 % Sandeep Ramirez Other [employer] Other 09-28-2021 23:25-0400Diastolic blood ucfxqtnz05 mm[Hg] David Dominguez MD Work Phone: [facility] [employer] Work Phone: 1(700) 138-552709-28-2021 23:25-0400Systolic blood mm[Hg] David Dominguez MD Work Phone: [facility] [employer] Work Phone: 1(668) 396-793309-28-2021 23:23-0400Body pojrfs078.1 Mira Dominguez MD Work Phone: [facility] [employer] Work Phone: 1(755) 346-891309-28-2021 23:23-0400Body mass index (BMI) [Ratio] 26.63 kg/j1RawjsghDavid Dominguez MD Work Phone: [facility] [employer] Work Phone: 1(574) 389-563309-28-2021 23:23-0400Body mqribsyhaok87.29 [degF] David Dominguez MD Work Phone: [facility] [employer] Work Phone: 1(829) 387-230309-28-2021 23:23-0400Body .58 kgDavid Dominguez MD Work Phone: [facility] [employer] Work Phone: 1(979) 619-925009-28-2021 23:23-0400Heart rate79 /Sharon Dominguez MD Work Phone: [facility] [employer] Work Phone: 1(438) 342-451209-28-2021 23:23-0400Respiratory rate14 /Sharon Dominguez MD Work Phone: [facility] [employer] Work Phone: 1(518) 202-664609-28-2021 23:23-4799WaE0% (BldA) [Mass fraction]99 % David Dominguez MD Work Phone: [facility] [employer] Work Phone: 1(710) 116-500407-05-2021 15:56-0400Body ywheffsbkfc45.6 [degF]Dr Lal [employer] Work Phone: 1(179) 934-710107-05-2021 15:56-0400Diastolic blood mm[Hg] Dr Lal [employer] Work Phone: 1(874) 734-934607-05-2021 15:56-0400Heart cuuq821 /minDr Lal [employer] Work Phone: 1(872) 753-845507-05-2021 15:56-0400Respiratory rate16 /minDr Lal [employer] Work Phone: 1(787) 479-536907-05-2021 15:56-8781VyV1% (BldA) [Mass fraction]100 % Dr Lal [employer] Work Phone: 1(174) 149-584207-05-2021 15:56-0400Systolic blood mm[Hg] Dr Lal [employer] Work Phone: Encounters Encounter DateEncounter TypeCare ProviderFacilityStart: 01-20-2025 End: 49-70-2884Yzjars Herson ARELLANO Work Phone: [facility] [place] [facility]BGYNStart: 01-20-2025 End: 36-67-7621Rpcabo Herson ARELLANO Work Phone: [facility] [place] [facility]BGYNStart: 01-20-2025 End: 51-43-9818Wskndqwyp Result EncounterCorey William DO Work Phone: [facility] External Department UnsolicitedStart: 01-20-2025 End: 25-44-3446Pjydkpka tamika ARELLANO Work Phone: [facility] [place] OBGYNComment on above:Third trimester ([facility]); 35 weeks gestation of ([facility])Start: 01-20-2025 End: 62-13-7576nyrfwdnziaAMN RAMEYNot AvailableStart: 01-11-2025 End: 94-82-7248Itczxdigr Result EncounterCorey William DO Work Phone: [facility] External Department UnsolicitedStart: 01-11-2025 End: 73-43-3978Afslotlxr Result EncounterCorey William DO Work Phone: [facility] External Department UnsolicitedStart: 01-05-2025 End: 26-29-8197Wmwwaz flowsheetCorey William DO Work Phone: [facility] [place] [facility]BGYNStart: 01-05-2025 End: 86-11-6944Lfvsfd flowsheetCorey William DO Work Phone: [facility] [place] [facility]BGYNStart: 01-05-2025 End: 22-70-7267Whcuvazm flow sheetCorey William DO Work Phone: [facility] [place] OBGYNComment on above:Third trimester ([facility]); 33 weeks gestation of ([facility])Start: 01-05-2025 End: 82-61-6445augpvppiybAAXUG FAZIONot AvailableStart: 01-02-2025 End: 36-40-4273Frxjjkcdz Result EncounterGeneric External Data ProviderNOMS External Department UnsolicitedStart: 01-02-2025 End: 86-54-0341Ydjdgmadf Result EncounterGeneric External Data ProviderNOMS External Department UnsolicitedStart: 12-26-2024 End: 19-97-7277Gttzqgygn Result EncounterGeneric External Data ProviderNOMS External Department UnsolicitedStart: 12-26-2024 End: 06-52-1322Quubwxker Result EncounterGeneric External Data ProviderNOMS External Department UnsolicitedStart: 12-23-2024 End: 95-94-3052Nlinnp flowsheetLuna Qiuly [employer] Work Phone: [facility] [place] OBGYNStart: 12-23-2024 End: 19-93-9927Nkcivd flowsheetLuna Steen [employer] Work Phone: [facility] [place] OBGYNStart: 12-23-2024 End: 69-78-8504Gfeyzooj flow sheetDaliaa Enio [employer] Work Phone: [facility] [place] OBGYNComment on above:Third trimester ([facility]); 31 weeks gestation of ([facility])Start: 12-23-2024 End: 63-58-5193gbjhafqkrlRTQKGZKT EBERLYNot AvailableStart: 12-09-2024 End: 07-96-7334Yxfjds flowsheetCorey William DO Work Phone: [facility] [place] [facility]BGYNStart: 12-09-2024 End: 52-91-9339Ehenvu flowsheetCorey William DO Work Phone: [facility] [place] [facility]BGYNStart: 12-09-2024 End: 32-91-6769Zmsfqkld flow sheetCorey William DO Work Phone: [facility] [place] OBGYNComment on above:Third trimester ([facility]); 29 weeks gestation of ([facility]); Yeast infectionStart: 12-09-2024 End: 44-31-4685pkndxdvpxlUTPAN YARIELONot AvailableStart: 11-27-2024 End: 99-62-2628zwtwozqoxqLEEVVMartins Ferry Hospitaltart: 11-25-2024 End: 47-26-5056Qbbsog flowsheetKrselene Steen [employer] Work Phone: [facility] [place] [facility]BGYNStart: 11-25-2024 End: 91-59-2039Ljnpga flowsheetKrniviaa Enio [employer] Work Phone: [facility] [place] [facility]BGYNStart: 11-25-2024 End: 58-83-3603Xqoazqcq flow sheetLuna Steen [employer] Work Phone: [facility] [place] OBGYNComment on above:Second trimester ([facility]); 27 weeks gestation of ([facility]); Evan's diseaseStart: 11-25-2024 End: 67-63-9336pppesznoqbAOVXXYQR EBERLYNot AvailableStart: 11-24-2024 End: 23-37-8195Kxhorlyma Result EncounterGeneric External Data ProviderNOMS External Department UnsolicitedStart: 11-24-2024 End: 42-69-5726Cuqhyrpjv Result EncounterGeneric External Data ProviderNOMS External Department UnsolicitedStart: 11-12-2024 End: 77-71-2808Pzplslxew Result EncounterGeneric External Data ProviderNOMS External Department UnsolicitedStart: 11-12-2024 End: 82-54-5468Bpeozczeu Result EncounterGeneric External Data ProviderNOMS External Department UnsolicitedStart: 11-03-2024 End: 08-52-0812Zktaqfeqn Result EncounterGeneric External Data ProviderNOMS External Department UnsolicitedStart: 11-03-2024 End: 83-95-5189Fmqgjfofi Result EncounterGeneric External Data ProviderNOMS External Department UnsolicitedStart: 10-28-2024 End: 94-47-5138Dwuequc encounter procedureAmy Dm ARELLANO Work Phone: [facility] HealthcareStart: 10-28-2024 End: 29-47-7232Rjotuptr flow sheetPretty ARELLANO Work Phone: [facility] [place] OBGYNComment on above:Second trimester ([facility] 23 weeks gestation of ([facility]); Diabetes mellitus screening; STD exposure; Well woman exam with routine gynecological exam; Heart palpitationsStart: 10-28-2024 End: 80-61-0021tfipjtzxtoSHS RAMEYNot AvailableStart: 10-28-2024 End: 93-92-7463Ketrfg flowsPlacido ARELLANO Work Phone: [facility] [place] OBGYNStart: 10-28-2024 End: 02-44-2811Dhddre Herson ARELLANO Work Phone: [facility] [place] OBGYNStart: 10-28-2024 End: 24-84-2315Bfxsbdafk Result EncounterGeneric External Data ProviderNOMS External Department UnsolicitedStart: 10-28-2024 End: 47-03-6488Rsodwavr Result EncounterLuna Steen NP Work Phone: n[facility] External Department UnsolicitedStart: 10-06-2024 End: 80-91-7592Sxyameyxq Result EncounterCorey William DO Work Phone: [facility] External Department UnsolicitedStart: 10-06-2024 End: 71-80-2753Bcynpbwgi Result EncounterCorey William DO Work Phone: n[facility] External Department UnsolicitedStart: 09-30-2024 End: 61-23-6218Ypvutmyp flow sheetCorey William DO Work Phone: noms [facility]CP OBComment on above:19 weeks gestation of ([facility]); Second trimester ([facility])Start: 09-30-2024 End: 55-05-4997zewaxwhfpjPCNCO FAZIONot AvailableStart: 09-28-2024 End: 25-99-8093Qzrearcvu Result EncounterGeneric External Data ProviderNOMS External Department UnsolicitedStart: 09-28-2024 End: 93-71-6608Xqfzpdjys Result EncounterGeneric External Data ProviderNOMS External Department UnsolicitedStart: 09-02-2024 End: 04-55-0553Yjhdsrpe flow Arsenio ARELLANO Work Phone: [facility] BCP OBComment on above:Second trimester ([facility] 15 weeks [facility] [place] Screening, , for anatomic survey ([facility])Start: 09-02-2024 End: 14-81-1998emijeqkzcoKFJ Magno AvailableStart: 09-02-2024 End: 29-01-9276Rwrpch Herson ARELLANO Work Phone: NOMS BCP OBStart: 09-02-2024 End: 49-11-4696Ejyrma Herson ARELLANO Work Phone: N[facility]S BCP OBStart: 08-31-2024 End: 82-61-1591Nwefmhdbe Result EncounterCorey William DO Work Phone: NOMS External Department UnsolicitedStart: 08-31-2024 End: 01-86-3515Cjluwhowh Result EncounterCorey William DO Work Phone: NOMS External Department UnsolicitedStart: 08-05-2024 End: 06-96-0849Enkzhl flowsheetCorey William DO Work Phone: N[facility]S BCP OBStart: 08-05-2024 End: 46-37-0668Tdapkv flowsheetCorey William DO Work Phone: NOMS BCP OBStart: 08-05-2024 End: 67-24-0375Jkytqzsv flow sheetCorey William DO Work Phone: NOMS BCP OBComment on above:First trimester ; 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 ; 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[facility])Start: 08-05-2024 End: 36-01-8642jgduoescalMAAAM FAZIONot AvailableStart: 07-18-2024 End: 85-76-9196Atvfbogjw Result EncounterGeneric External Data ProviderNOMS External Department UnsolicitedStart: 07-18-2024 End: 01-35-4247Zhldbtqnt Result EncounterGeneric External Data ProviderNOMS External Department UnsolicitedStart: 07-16-2024 End: 82-43-2973Mrspit outpatient visit 5 minutesNoms Bcp Ob William NurseNOMS BCP OBComment on above:GA: 2i9qHxzpx: 07-16-2024 End: 44-82-4022abwdvqgoiaZLCLC FAZIONot AvailableStart: 02-26-2024 End: 58-88-5431Cakkqge encounter procedureDavid A Pocos DO Work Phone: NOMS NB ORTHOComment on above:S/P reconstruction of ACL of left knee using bone-patellar tendon-bone autograft (Primary Dx)Start: 02-26-2024 End: 10-89-8530pgyfrjgovbKNJRU A POCOSNot AvailableStart: 02-19-2024 End: 11-86-7579Djyjgo outpatient visit 25 minutesEdjay Payne MD Work Phone: N[facility]S CI FM 100Comment on above:Subclinical hypothyroidism (CMS/HCC) (Primary Dx); 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CMS/HCC); Cigarette smoker; Non morbid obesity due to excess calories; Postural orthostatic tachycardia syndrome (POTS); Abnormal bleeding in menstrual cycleStart: 02-19-2024 End: 76-08-3979fpezieltecBDALEA J HEMEYERNot AvailableStart: 02-19-2024 End: 87-57-5423Rzjkqi Rodriguez Payne MD Work Phone: N[facility] CI FM 100Start: 02-19-2024 End: 14-38-1487Kbbcmx Rodriguez Payne MD Work Phone: N[facility]S CI FM 100Start: 12-27-2023 End: 48-68-0535nfhujuwrffMlfv J Spriggs PT Work Phone: NOLW FB PTComment on above:Acute pain of left knee (Primary Dx); Status post arthroscopic reconstruction of anterior cruciate ligament of left knee using quadricepstendon autograftStart: 12-27-2023 End: 04-71-4706Dilnwi flowsheetKyle J Lilo PT Work Phone: NOMS FB PTStart: 12-27-2023 End: 78-85-8146Qrwdgw flowsheetKyle J Lilo PT Work Phone: NOPC FB PTStart: 12-24-2023 End: 88-02-6925ukhugzcdoyYvmhxfdu Wright BED WORKER Work Phone: NOMS FB PTComment on above:Acute pain of left knee (Primary Dx); Status post arthroscopic reconstruction of anterior cruciate ligament of left knee using quadricepstendon autograftStart: 12-24-2023 End: 58-22-7602Znnacq [facility]hotBeck[facility] BED WORKER Work Phone: NOAJ FB PTStart: 12-24-2023 End: 66-09-6503Osftlg UpshotBeckley [facility] BED WORKER Work Phone: NONL FB PTStart: 12-17-2023 End: 10-95-5312vytafsxqpoWdmn J Lilo PT Work Phone: NOQC FB PTComment on above:Acute pain of left knee (Primary Dx); Status post arthroscopic reconstruction of anterior cruciate ligament of left knee using quadricepstendon autograftStart: 12-17-2023 End: 12-00-1350Hwfqvk flowsheetKyle J Lilo PT Work Phone: NOMS FB PTStart: 12-17-2023 End: 58-87-7578Lbwzlz flowsheetKyle J Lilo PT Work Phone: NOMS FB PTStart: 12-09-2023 End: 04-77-6887Bthbay Isabel Schwartz DO Work Phone: NOMS SWS ORTHOAOStart: 12-09-2023 End: 50-97-8215Feemhwalan Schwartz DO Work Phone: NOMS SWS ORTHOAOStart: 12-09-2023 End: 70-53-0684Lebijmu encounter procedureKelvin Schwartz DO Work Phone: NOMS SWS ORTHOAOComment on above:Left knee injury, initial encounter (Primary Dx)Start: 12-03-2023 End: 74-57-5377qmeoxsrctjZxolbyhu Wright BED WORKER Work Phone: noms FB PTComment on above:Acute pain of left knee (Primary Dx); Status post arthroscopic reconstruction of anterior cruciate ligament of left knee using quadricepstendon autograftStart: 12-03-2023 End: 03-41-2105[employer] BED WORKER Work Phone: NOGG FB PTStart: 12-03-2023 End: 47-30-5058[employer] BED WORKER Work Phone: NOQJ FB PTStart: 11-19-2023 End: 68-37-0936pznxaputpgGugpyi Tattersall PTANOMS FB PTComment on above:Acute pain of left knee (Primary Dx); Status post arthroscopic reconstruction of anterior cruciate ligament of left knee using quadricepstendon autograftStart: 11-19-2023 End: 61-30-2861Bkqzek flowsheetMariah Tattersall PTANOMS FB PTStart: 11-19-2023 End: 32-64-5318Eftalc flowsheetMariah Tattersall PTANOMS FB PTStart: 11-12-2023 End: 59-94-2630saxuywtbtmJkcolund Wright BED WORKER Work Phone: NOMS FB PTComment on above:Acute pain of left knee (Primary Dx); Status post arthroscopic reconstruction of anterior cruciate ligament of left knee using quadricepstendon autograftStart: 11-12-2023 End: 54-77-7090[employer] BED WORKER Work Phone: NODW FB PTStart: 11-12-2023 End: 90-54-1089[employer] BED WORKER Work Phone: NOMS FB PTStart: 85-05-6211Wnu-patient / Non-visitMD Rosalie Payne Work Phone: [facility] Work Phone: Start: 09-02-2023 End: 06-43-8791Rnyxkfpna to same day surgery centerMD Rosalie Payne Work Phone: [facility] Work Phone: Start: 09-02-2023 End: 74-04-7287gvkmccfykcAF Rosalie Payne Work Phone: [facility] Work Phone: Start: 07-25-2023 End: 29-98-7544gogksqxhvkZwiiqukonCommunity Regional Medical Center Work Phone: Start: 07-25-2023 End: 39-14-6996Vxzbqiu encounter procedureFormerly [facility] G[facility] Work Phone: Start: 04-23-2023 End: 60-39-6768mhfyblzqjsNllmq A PocosFacility:FTMCStart: 92-45-1848Fyfjq Jennifer Nagy PT Work Phone: noms FB PTStart: 04-03-2023 End: 47-37-0093vxjjbbmoysCosre A PocosFacility:FTMCStart: 04-03-2023 End: 89-17-0851Ummwbiz encounter procedureDavid A Pocos [facility] Start: 04-01-2023 End: 92-23-3633xpbasrwpbfFdmyfm Kristine Other [facility] GAMINSIDE Other Start: 26-15-1356Gjrbes outpatient visit 15 minutes Destinee PaganOrtonville Hospital [facility] ClydeStart: 05-01-2022 End: 44-99-8054pybireikeyDO DOC THOMAS .Facility:L9Treeg: 08-21-2021 End: 53-74-8588ybsgzrkixxYdokiu Dymond Other noTelemetryWeb Other Start: 12-82-0715Hczilr outpatient visit 15 minutes Carlie ThomasSPIKEG [facility] Care ClydeStart: 07-26-2021 End: 87-45-0356mmhsesnnesSF COREY FAZIO .Facility:C9Lkvwy: 66-27-9633Lljtjqzhb department patient visitBRLUIS Yañez [facility]ENTERWAGNERMedina Hospitaltart: 05-24-2021 End: 74-74-8570Mplhxbnzr department patient visitArtis Yoder Work Phone: [facility] EDComment on above:Contusion of left knee, initial encounter (Primary Dx)Start: 05-11-2021 End: 04-13-6449jtixetkoqbGnvygbucg Breault Other noTelemetryWeb Other Start: 55-23-2954Nwykol outpatient visit 15 minutes Adriana Garner [facility] ClydeStart: 05-01-2021(URG) Urgent Care Visit Carlie LewisVinodG [facility]gent Care ClydeStart: 05-01-2021 End: 94-03-5764zqtexksyecAecnxi Dymond Other noTelemetryWeb Other Start: 04-07-2021 End: 35-94-2562eepqjfqfbhZpatmf Taylor Other noTelemetryWeb Other Start: 59-28-9511Hocpfs outpatient visit 15 minutes Sandeep Holalnd [facility] ClydeStart: 12-14-2020 End: 18-85-3159Enxvcgvbg department patient visitDAVID Bedolla [facility] Centertart: 12-14-2020 End: 24-66-9141Gpvgqktxi department patient visitCiaraseli Dominguez MD Work Phone: [facility] EDComment on above:Tailbone injury, initial encounter (Primary Dx)Start: 09-19-2020 End: 19-89-8751Gdgbnskmf department patient visitLakehealth [facility]point Medical Center EDComment on above:Closed head injury, initial encounter (Primary Dx)Start: 07-15-2017 End: 69-23-9307GuupdzhjwjVYLXQT P VARGASCleveland Memorial Health Systemart: 05-15-2017 End: 52-66-5606IlkuszdyugSBEIWD P VARGASCleveland [facility]: 04-30-2017 End: 91-77-7930OsucgzivvdFKLOQW P VARGASCuniversity hospitals ahuja [facility] centerand [facility]: 04-29-2017 End: 37-54-6659EwvttuudqmIOEZVX P VARGASCuniversity hospitals ahuja medical centerand [facility]: 03-13-2017 End: 52-80-0732LdoxuyhekuPZVIZ AM MURPHYFacility:[facility] Procedures DateProcedureProcedure DetailPerforming ClinicianStart: 84-58-0232ZJ OB BPP W NON-STRESSCorey William DO Work Phone: Start: 31-19-8604Pihrv dip stick/tablet rgnt non-auto w/o micrscpAjosé antonio ARELLANO Work Phone: Start: 63-93-4415PK OB BPP W NON-STRESSCorey William DO Work Phone: Start: 70-74-0711Npruo dip stick/tablet rgnt non-auto w/o micrscpCorey William DO Work Phone: Start: 33-98-9779VV OB BPP W NON-STRESSGeneric External Data ProviderStart: 61-35-1866NU OB GROWTHGeneric External Data ProviderStart: 18-68-1536FH OB BPP W NON-STRESSGeneric External Data ProviderStart: 43-08-2872EOV THYROID STIM HORMONECorey William DO Work Phone: Start: 43-98-4667Xavdi dip stick/tablet rgnt non-auto w/o micrscpLuna Steen NP Work Phone: Start: 30-30-0650Nwctt dip stick/tablet rgnt non-auto w/o micrscpCorey William DO Work Phone: Start: 89-64-9317Xqbrd dip stick/tablet rgnt non-auto w/o Pricilla Steen [employer] Work Phone: Start: 85-34-6000ET ECHO DOPPLER COMPLETEGeneric External Data ProviderStart: 88-51-3696MQN 12-LEADGeneric External Data Provider Start: 40-34-8266TPH CBC WITH AUTO DIFFLuna Steen NP Work Phone: Start: 92-92-2376PLEYXVTLQ VAGINITIS (HTRX)Luna Steen NP Work Phone: Start: 53-00-1811Uvizl dip stick/tablet rgnt non-auto w/o Pricilla Steen [employer] Work Phone: Start: 19-09-3137RFH,APTIMA HPV,AGE GDLNAmy Dm ARELLANO Work Phone: Start: 32-37-2685HZ OB CERVICAL LENGTHCorey William DO Work Phone: Start: 63-32-3593Nxqoo dip stick/tablet rgnt non-auto w/o micrscpCorey William DO Work Phone: Start: 69-86-2087UFE THYROID STIM HORMONECorey William DO Work Phone: Start: 17-57-9893Kyzdm dip stick/tablet rgnt non-auto w/o felicescpAmy Dm ARELLANO Work Phone: Start: 65-76-9546KJC THYROID STIM HORMONEGeneric External Data ProviderStart: 78-55-8118Xpbds dip stick/tablet rgnt non-auto w/o micrscpCorey William DO Work Phone: Start: 51-51-4784CXX TESTCorey William DO Work Phone: Start: 59-52-8279WAS DRUG SCREEN RAPID (URINE)Generic External Data ProviderStart: 59-30-1329Tqmcu dip stick/tablet rgnt non-auto w/o micrscpCorey William DO Work Phone: Start: 83-42-9806Tlontwvs blood count with white cell differential, automatedEdjay Payne MD Work Phone: Start: 31-47-9537Jklorgwzqozii metabolic panelEdjay Payne MD Work Phone: Start: 92-13-1098Qgkybwdvdbhif antibodyEdjay Payne MD Work Phone: Start: 81-26-2903TguxjbdvdbpqfoptxthahbuxviDP Rosalie Payne Work Phone: Start: 00-44-4477Xxwxfee of reconstruction of anterior cruciate ligament tearStatus post arthroscopic reconstruction of anterior cruciate ligament of left knee using quadricepstendon autograftNereyda Vieira BED WORKER Work Phone: Start: 64-60-8735Yzhnwoigsf examination knee 3 views Artis Yoder DO Work Phone: Start: 21-51-2127Vjofg sacrum & coccyx minimum 2 views David Dominguez MD Work Phone: Start: 35-08-2493Vb head/brain w/o contrast material Luis Carlos Fragoso [...] of left knee using quadricepstendon autograftGretchen Vieira BED WORKER Work Phone: History of reconstruction of anterior cruciate ligament tearStatus post arthroscopic reconstruction of anterior cruciate ligament of left knee using quadricepstendon autograftKystuart Nagy PT Work Phone: History of reconstruction of anterior cruciate ligament tearStatus post arthroscopic reconstruction of anterior cruciate ligament of left knee using quadricepstendon autograftGretchen Vieira BED WORKER Work Phone: History of reconstruction of anterior cruciate ligament tearStatus post arthroscopic reconstruction of anterior cruciate ligament of left knee using quadricepstendon autograftGretchen Vieira BED WORKER Work Phone: History of reconstruction of anterior cruciate ligament tearStatus post arthroscopic reconstruction of anterior cruciate ligament of left knee using quadricepstendon autograftMariah Tattersall BED WORKER Laparoscopic excision of cyst of left ovaryDavid Pocos Plan of Treatment DateCare ActivityDetailAuthorStart: 95-65-0073Gwlvvsxzx vaccinationInfluenza Vaccine (#1)NOMS HealthcareComment on above:Postponed from 11/16/2024 (Patient Refused)Start: 01-27-2025 End: 59-29-0120Cpltgyj encounter iwfebrbhe27/12/2025 1:40 PM EST Routine [facility] [place] [facility] [address] [place], [id number] Doc Thomas, [address] [place] [address] N[facility]S [place] OBGYNStart: 01-20-2025 End: 64-06-9128Qgtgbdc encounter procedureNOMS [place] OBGYNComment on above: ArrivedStart: 01-05-2025 End: 73-83-7115Ggbfemv encounter procedureNOMS [place] OBGYNComment on above: ArrivedStart: 12-23-2024 End: 23-94-2940Ctrhsck encounter procedureNOMS [place] OBGYNComment on above: ArrivedStart: 12-23-2024 End: 17-32-4596Ayzuwmwbwcyj / ancillary services qjqwdeygaf67/08/2025 1:30 PM EDT Ancillary Procedure [facility] [place] [facility] [address] [place] [address] [place] [address] [facility] [place] OBGYNStart: 12-09-2024 End: 49-66-1486Joyyynn encounter procedureNOMS [place] OBGYNComment on above: ArrivedStart: 11-25-2024 End: 60-00-9599GA biophysical profile w non stress testUS biophysical profile w non stress test Imaging Routine 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), Expires: 05/25/2025[facility] Work Phone: comment on above:Expected: 11/25/2024 (Approximate), Expires: 05/25/2025Start: 11-25-2024 End: 16-21-0528XY for pregnancyUS OB follow up transabdominal approach Imaging Routine Evan's disease Expected: 11/25/2024, Expires: 03/27/2025NOMS HealthcareComment on above:Expected: 11/25/2024, Expires: 03/27/2025Start: 11-25-2024 End: 94-94-9355Yhfyevt encounter procedureNOMS [place] OBGYNComment on above: ArrivedStart: 87-92-4220JKDFK-19 Vaccine ( season)COVID-19 Vaccine ()NOMS HealthcareStart: 80-18-0208Stfvxfxtu vaccinationNOMS HealthcareStart: 10-28-2024 End: 74-27-1960Lnxnnxk encounter procedureNOMS BCP OBComment on above:Arrived Start: 10-28-2024 End: lead ECGECG 12 lead unit performed ECG Routine Heart palpitations Expected: 10/28/2024 (Approximate), Expires: 10/28/2025NOMS HealthcareComment on above:Expected: 10/28/2024 (Approximate), Expires: 10/28/2025Start: 10-28-2024 End: 55-80-4509WEO panel - Blood by Automated countCBC Lab Routine Diabetes mellitus screening Expected: 10/28/2024 (Approximate), Expires: 10/28/2025[facility] Work Phone: comment on above:Expected: 10/28/2024 (Approximate), Expires: 10/28/2025Start: 10-28-2024 End: 45-17-3231Hkivbdextxnzhm 2D completeEchocardiogram 2D complete Echocardiography Routine Heart palpitations Expected: 10/28/2024 (Approximate), Expires: 10/28/2026NONC HealthcareComment on above:Expected: 10/28/2024 (Approximate), Expires: 10/28/2026Start: 10-28-2024 End: 69-10-2035Fdknkhpoaci of glucose 1 hour after glucose challenge for glucose tolerance testGlucose tolerance, 1 hour Lab Routine Diabetes mellitus screening Expected: 10/28/2024 (Approximate), Expires: 10/28/2025NONC HealthcareComment on above:Expected: 10/28/2024 (Approximate), Expires: 10/28/2025Start: 09-30-2024 End: 13-28-0893Ikrvzen encounter slmtmdfom45/16/2025 3:40 PM EDT Routine [facility] OB [address] [place] [address] Doc Thomas, DO [address] [address] NOMS BCP OBStart: 09-30-2024 End: 63-99-8236Wnserslqcvye / ancillary services ilhatimafu67/16/2025 2:30 PM EDT Ancillary Procedure [facility] [address] [address] NOMS BCP OBStart: 09-02-2024 End: 25-66-4229Kppqwos encounter procedureNOMS BCP OBComment on above:Arrived Start: 09-02-2024 End: 20-55-4535Kbjsa fetoprotein, maternalAlpha fetoprotein, maternal Lab Routine Second trimester ([facility]) Expected: 09/02/2024 (Approximate), Expires: 11/02/2024[facility] HealthcareComment on above:Expected: 09/02/2024 (Approximate), Expires: 11/02/2024Start: 09-02-2024 End: 38-86-4453FB for pregnancyUS OB 14+ weeks anatomy scan Imaging Routine Screening, , for anatomic survey ([facility]) Expected: 09/02/2024, Expires: 12/03/2024[facility] Work Phone: comment on above:Expected: 09/02/2024, Expires: 12/03/2024Start: 08-05-2024 End: 81-73-4316Xzsjsfp encounter procedureNOMS [facility] OBComment on above:Arrived Start: 07-16-2024 End: 77-14-0446USJ/RhABO/Rh Lab Routine Missed menses , unspecified gestational age Expected: 07/16/2024 (Approximate), Expires: 07/16/2025NONC HealthcareComment on above:Expected: 07/16/2024 (Approximate), Expires: 07/16/2025Start: 07-16-2024 End: 18-03-7333Csymw type and Indirect antibody screen panel - BloodType and screen Lab Routine Missed menses , unspecified gestational age Expected: 07/16/2024 (Approximate), Expires: 07/16/2025NONC HealthcareComment on above:Expected: 07/16/2024 (Approximate), Expires: 07/16/2025Start: 07-16-2024 End: 75-73-3501Hhtrn of abuse panel - Urine by Screen methodRapid drug screen, urine Lab Routine , unspecified gestational age Encounter for supervision of normal first in first trimester Expected: 07/16/2024 (Approximate), Expires: 07/16/2025[facility] HealthcareComment on above:Expected: 07/16/2024 (Approximate), Expires: 07/16/2025Start: 07-10-2024 End: 18-50-3430BD Pelvis transvaginalUS OB transvaginal Imaging Routine Missed menses Expected: 07/10/2024, Expires: 10/09/2024[facility] Healthcare Work Phone: comment on above:Expected: 07/10/2024, Expires: 10/09/2024Start: 02-21-2024 End: 69-92-2693Xrjipsb encounter kbxthodhl95/06/2024 8:00 AM EST Office Visit [facility] [address] [place] [address] Myron Marroquin, [address] [place] [address] NOMS SWS ORTHOAOStart: 02-19-2024 End: 40-41-6919Yvuncur encounter izqcfnopn91/04/2024 3:30 PM EST Office Visit [facility] CI FM [address] [facility] [address] [place] [address] Rosalie Payne MD [address] [address] 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CMS/HCC); Chronic fatigue; Cigarette smoker; Non morbid obesity due to excess caloriesNOMS CI FM 100Comment on above: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CMS/HCC); Chronic fatigue; Cigarette smoker; Non morbid obesity due to excess caloriesStart: 02-19-2024 End: 56-70-8527Uuimwdz, randomInsulin, random Lab Routine Non morbid obesity due to excess calories Postural orthostatic tachycardia syndrome (POTS) Expected: 02/19/2024 (Approximate), Expires: 02/18/2025[facility] Healthcare Work Phone: Comment on above:Expected: 02/19/2024 (Approximate), Expires: 02/18/2025Start: 01-17-2024 End: 28-83-4034qvqusebhhe99/01/2024 2:30 PM EDT Treatment [facility] JESENIA PT [address] [place] [address] Stefano Nagy, PT [address] [place], [place] [address] NOMS FB PTStart: 01-14-2024 End: 96-11-2068lhftumcoqn14/29/2024 3:30 PM EDT Treatment [facility] FB PT [address] [place] [address] Nereyda Vieira, BED WORKER [address] [place] [address] NOMS FB PTStart: 01-10-2024 End: 80-17-2381hvpqqwcxsc88/25/2024 2:30 PM EDT Treatment [facility] FB PT [address] [place] [address] Stefano Nagy, PT [address] [place] [address] NOMS FB PTStart: 01-07-2024 End: 35-03-8870mmtxclifkh83/22/2024 3:30 PM EDT Treatment [facility] FB PT [address] [place] [address] Stefano Nagy, PT [address] [place] [address] NOMS FB PTStart: 01-03-2024 End: 10-60-7661gdefabrsyf62/18/2024 2:30 PM EDT Treatment [facility] FB PT [address] [place] [address] Stefano Nagy, PT [address] [place] [address] NOMS FB PTStart: 12-31-2023 End: 44-97-8705qiegwzihkh99/15/2024 3:30 PM EDT Treatment [facility] FB PT [address] [place] [address] Jennifer Dozier PTANOMS FB PTStart: 12-27-2023 End: 21-76-2392dmhnxtshqtKQMC FB PTComment on above:ArrivedStart: 12-24-2023 End: 15-82-8666zqtyvutrbb98/08/2024 3:00 PM EDT Treatment [facility] FB PT [address] [place] [phone] Nereyda Vieira, BED WORKER [address] [place] [address] NOMS FB PTStart: 12-17-2023 End: 69-27-5880dloaneygxx29/01/2024 3:00 PM EDT Treatment [facility] FB PT [address] [place] [address] Stefano Nagy, PT [address] [place] [address] NOMS FB PTStart: 12-09-2023 End: 76-19-1258Orbpwdq encounter procedureNOMS SWS ORTHOAOComment on above: ArrivedStart: 12-03-2023 End: 62-92-5605thueizgzod08/17/2024 3:30 PM EDT Treatment [facility] FB PT [address] [place] [address] Nereyda Vieira, BED WORKER [address] [place] [address] ArrivedNOMS FB PT Comment on above:ArrivedStart: 11-19-2023 End: 99-72-2816sjxzrkiewjNINS FB PTComment on above:Acute pain of left knee (Primary Dx); Status post arthroscopic reconstruction of anterior cruciate ligament of left knee using quadricepstendon autograftStart: 11-80-6951Vdnxoxviy vaccination Influenza Vaccine (#1)NOMS HealthcareStart: 06-90-5098AkeuwgjnxUniversity Hospitals Lake West Medical Centertart: 05-07-2023 End: 88-68-4484Qahslro encounter qwewabyzp16/20/2024 11:10 AM EST Office Visit [facility] [address] [place] [phone] Doc Thomas, DO [address] [address] NOMS BCP OBStart: 05-03-2023 End: 86-84-0231Pkpxgso encounter /16/2024 11:00 AM EST Office Visit [facility] [address] [place] [address] Myron Marroquin, DO [address] [facility] [place] [address] [facility] ORTHOAOStart: 04-23-2023 End: 82-98-2140Jbbifpq encounter gmepciygg93/06/2024 8:00 AM EST Procedure Visit [facility] EXT DEP Myron Marroquin, DO [address] [facility] [place] [address] NOMS EXT DEPStart: 04-22-2023 End: 46-69-2727rxdwzrzizf06/05/2024 2:30 PM EST Evaluation [facility] PT [address] [place] [phone] Stefano Nagy, PT [address] [place] [address] NOMS FB PTStart: 79-64-3625Xypmfmfln vaccinationInfluenza Vaccine (#1)[facility] HealthcareStart: 43-80-1476YMhI/Tdap/Td vaccine (5 - Td or Tdap)DTaP/Tdap/Td vaccine (5 - Td or Tdap)[facility]Start: 98-38-5907Keijbsvrg vaccinationFlu vaccine (#1)[facility]imaStart: 23-18-5207Ksarmzbzp for malignant neoplasm of cervixCleveland Clinic [facility] Health Start: 98-89-2807HTiT/Tdap/Td vaccine (1 - Tdap)DTaP/Tdap/Td vaccine (1 - Tdap) [facility] Phone: start: 93-86-7529Knspxfyydjbd Vaccine: Pediatrics (0 to 5 Years) and At-Risk Patients (6 to 64 Years) (1 of 2 - PCV)Pneumococcal Vaccine: Pediatrics (0 to 5 Years) and At-Risk Patients (6 to 64 Years) (1 of 2 - PCV)[facility] CenterStart: 40-70-3276Rfbbyvxzg for Chlamydia trachomatis Chlamydia screenC[facility] HealthStart: 83-18-7547IQX screeningHIV screenKindred Hospital [facility] Start: 88-77-6253Pqgpazcgh vaccine (2 of 2 - 2-dose childhood series)Varicella vaccine (2 of 2 - 2-dose childhood series)[facility]: 20-97-1356XAZPV-19 Vaccine (1)COVID-19 Vaccine (1)[facility] Phone: start: 91-34-1046Tbubbfqfzt ScreenDepression Screen [facility]: 83-43-3674PQT vaccine (1 - 2-dose series)HPV vaccine (1 - 2- dose series)[facility]: 57-89-9625VYJPB-19 Vaccine (1)COVID-19 Vaccine (1)[facility]: 75-16-4012Bcjgkgbsh vaccine (1 of 2 - 2-dose childhood series)Varicella vaccine (1 of 2 - 2-dose childhood series)[facility] Phone: start: 71-48-1218Solhfxzgl C screeningHepatitis C screenMer HealthBacteria identified in Urine by CultureUrine culture Microbiology Routine Missed menses Ordered: 07/16/2024[facility] HealthcareComment on above:Ordered: 07/16/2024BC W Auto Differential panel - BloodCBC and differential Lab Routine Missed menses , unspecified gestational age Ordered: 07/16/2024[facility] HealthcareComment on above:Ordered: 07/16/2024HLAMYDIA TRACHOMATIS (GENITO/STI)CHLAMYDIA TRACHOMATIS (GENITO/STI) Lab Routine STD exposure Ordered: 10/28/2024[facility] HealthcareComment on above:Ordered: 10/28/2024 Cytology Cervical or vaginal smear or scraping studyPap Smear Pathology and Cytology Routine Well woman exam with routine gynecological exam Ordered: [facility] HealthcareComment on above:Ordered: 10/28/2024Hemoglobin A1c/Hemoglobin.total in BloodHemoglobin A1c Lab Routine Missed menses , unspecified gestational age Ordered: 07/16/2024[facility] HealthcareComment on above: Ordered: 07/16/2024Hepatitis B virus surface Ag [Presence] in Serum or Plasma by ImmunoassayHepatitis B surface antigen Lab Routine Missed menses , unspecified gestational age Ordered: 07/16/2024[facility] HealthcareComment on above: Ordered: 07/16/2024Hepatitis C virus Ab [Presence] in Serum or Plasma by ImmunoassayHepatitis C antibody Lab Routine Missed menses , unspecified gestational age Ordered: 07/16/2024[facility] HealthcareComment on above:Ordered: 07/16/2024HIV-1/HIV-2 antigen/antibody combination immunoassayHIV-1 and HIV-2 antibodies Lab Routine Missed menses , unspecified gestational age Ordered: 07/16/2024[facility] HealthcareComment on above:Ordered: 07/16/2024Neisseria gonorrhoeae DNA [Presence] in Unspecified specimen by QUEENIE with probe detection Neisseria gonorrhea DNA probe, direct Lab Routine STD exposure Ordered: 10/28/2024[facility] HealthcareComment on above:Ordered: 10/28/2024Patient Education Hiatal hernia Hemorrhoids Gastritis Know your [facility] Work Phone: Reagin Ab [Presence] in Serum by RPRRPR Lab Routine Missed menses , unspecified gestational age Ordered: 07/16/2024[facility] HealthcareComment on above:Ordered: 07/16/2024Rubella antibody, IgGRubella antibody, IgG Lab Routine Missed menses , unspecified gestational age Ordered: 07/16/2024[facility] HealthcareComment on above:Ordered: 07/16/2024 SURESWAB(R) ADVANCED VAGINITIS PLUS, TMASURESWAB(R) ADVANCED VAGINITIS PLUS, TMA Pathology and Cytology Routine STD exposure Ordered: 10/28/2024[facility] Healthcare Comment on above:Ordered: 10/28/2024 End: 77-58-4137Sfyvjpbklke [Units/volume] in Serum or PlasmaTSH Lab Routine 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CMS/HCC) e1jdyjw for 6 Occurrences starting 08/05/2024 until 08/05/2025[facility] Healthcare Work Phone: comment on above:w3mxpcm for 6 Occurrences starting 08/05/2024 until 08/05/2025US Pelvis transvaginalUS OB transvaginal Imaging Routine Missed menses 07/16/2024 1:59 PM [facility]TSS[facility] Immunizations Immunization DateImmunizationNotesCare PosglipgHqtpjwem03-48-8007immyvymoa B vaccine, adult dosageKyle Lilo PT Work Phone: [facility] CenterCzyykpkceg02-61-3027eotphkndtcoju oligosaccharide (groups A, C, Y and W-135) diphtheria toxoid conjugate vaccine (MCV4O)Stefano Lilo PT Work Phone: [facility] CenterWrzigwirqk06-19-7164cyibodijt A vaccine, pediatric/adolescent dosage, 2 dose scheduleKyle Lilo PT Work Phone: [facility] CenterFwakvqnxsa20-89-0047zjbtuwqxn A vaccine, pediatric/adolescent dosage, 2 dose scheduleKyle Lilo PT Work Phone: [facility] CenterWsyvaogwnj89-65-6736ctfyago toxoid, reduced diphtheria toxoid, and acellular pertussis vaccine, adsorbedKyle Lilo PT Work Phone: [facility] CenterVssmemumgp08-23-6022ruhfwjjbt virus vaccineKyle Lilo PT Work Phone: [facility] CenterSkbljeoepe27-43-6896kfrixtqwxln influenzae type b conjugate and Hepatitis B vaccineKyle Lilo PT Work Phone: [facility] CenterExlwmwbkkb72-37-1828gwilqfuzkgj influenzae type b vaccine, HbOC conjugateKyle Lilo PT Work Phone: [facility] CenterCcklfhmykp63-44-0452luwcdhlyh B vaccine, pediatric or pediatric/adolescent dosageKyle Lilo PT Work Phone: [facility] CenterFqckpjnpsf72-53-2962wpeazbb, mumps and rubella virus vaccineStefano Nagy PT Work Phone: [facility] CenterBrjwfpvbeg51-62-9696lkaomjdwuz vaccine, inactivatedStefano Nagy PT Work Phone: [facility] CenterScwmtyezqx61-06-6665GEzI-Tkrjogxcyko influenzae type b conjugate vaccineStefano Nagy PT Work Phone: [facility] CenterYhrezmafdw86-53-0286beizpaildgqx conjugate vaccine, 7 valentStefano Nagy PT Work Phone: [facility] CenterDeovxfuvpq18-70-0160zfpypmqzci, tetanus toxoids and acellular pertussis vaccine, Haemophilus influenzae type b conjugate, and poliovirus vaccine, inactivated (HXfF-Udz-AOL)Stefano Nagy PT Work Phone: [facility] CenterSedegclxfm88-54-8517dayywiykge, tetanus toxoids and acellular pertussis vaccine, Haemophilus influenzae type b conjugate, and poliovirus vaccine, inactivated (LZcN-Wqv-AOX)Stefano Nagy PT Work Phone: [facility] CenterCctkdloolt64-21-2914udwayewar B vaccine, pediatric or pediatric/adolescent dosageStefano Khangs PT Work Phone: [facility] CenterAhxsofqojn29-87-1500yptebtnqr B vaccine, pediatric or pediatric/adolescent dosageStefano Normaniggs PT Work Phone: [facility] Payers DatePayer CategoryPayerPolicy [id number] Blue [id number].28829-60-4061 Unknown1.2.840.871921.1.13.693.2.7.3.743[id number] 1.2.840.389762.1.13.239.2.7.3.200938.37015-28-2405[employer] Health Insurance [id number] 2.840.1.368560.3.579.2. [id number] 2.840.1.282141.3.57[id number] 2.840.1.253895.3.57[id number] 2.840.1.317032.3.57[id number] 2.840.1.032364.3.57[id number] 2.840.1.512079.3.57[id number] 2.840.1.032661.3.579.[id number] 2.840.1.805075.3.57[id number]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
--- OUTSIDE RECORDS SUMMARY | 2025-01-23 08:32 | XMS_ITS | Encounter Summary ---
Author Organization [facility] Address [address] [place] [address] Care Team Providers Care Juke Box Servicer Name Role Phone Danny Schuler MD Primary Care Provider Danny Schuler MD Unavailable [phone] Encounter Details DateTypeDepartmentCare Team (Latest Contact Info)Qumylhffkom88/07/2025Telephone [facility] [place] [facility] [address] [place] [id number] Doc Thomas DO [address] [facility] [address] [place], [facility] Social History Tobacco UseTypesPacks/DayYears UsedDateSmoking Tobacco: [...] relatives?Once a week12/11/2022How often do you attend latter day or latter day services?More than 4 times per year12/11/2022o you belong to any clubs or organizations such as latter day groups, unions, fraternal or athletic groups, or [...] care, and heating?Somewhat hard 12/11/2022[facility] [place] of Occupational Health - Occupational Stress QuestionnaireAnswerDate RecordedDo you feel stress - tense, restless, nervous, or anxious, or unable to sleep at night because yourmind is troubled all the time - these days?Only a wgnsjl0412/11/2022Exercise Vital SignAnswerDate Recorded On average, how many [...] degree you have received?11th grade12/10/2022Estimated Date of KlynnepmMttaxcfjOjf12/06/2025Based on last menstrual period of 05/16/2024Sex and Gender InformationValueDate RecordedSex Assigned at HdyxbActpoi86/25/2023 10:10 AM EDTLegal SdlLatomx75/15/2023 6:51 PM EDTGender WgxypcfzLywihe96/25/2023 10:10 AM EDTSexual OrientationNot on filedocumented as [...] these have been ongoing and starting to pear picker a little patient advised to start timing and monitoring theseand if worsens to head over also watch for increase in discharge and water breaking. Patient advised if questions after our business hours reach out the [facility] and they are able to guide her also. PVU documented in this encounter Plan of Treatment DateTypeDepartmentCare Team (Latest Contact Info)Atvlseffnsq00/12/2025 1:40 PM ESTRoutine [facility] [address] [place] [address] Doc Thomas DO [address] [facility] [place] [address] documented as of this encounter Visit Diagnoses Not on filedocumented in this encounter Care Teams Team MemberRelationshipSpecialtyStart DateEnd Date Danny Schuler MD [address] [facility] [address] [place] [address] PCP - GeneralFamily Medicine07/24/22 Danny Schuler MD [address] [place] [address] PCP - Ziggy Richard06/16/20documented as of this encounter
--- NOTE | 2025-01-23 08:38 | US_ITS ---
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 COMPARISON: 01/20/2025 FINDINGS: Estimated gestational age: 36 weeks 0 days heart rate: 161 bpm. Amniotic fluid index: 15.22 cm with the deepest vertical pocket measuring 7.0 cm. Biophysical profile: breathing movements: 2/2 Gross body movements: 2/2 tone: 2/2 Amniotic fluid volume: 2/2 US/US OB BPP w non-stress IMPRESSION: Biophysical profile: 10/23 Impression dictated by: Emmanuel Dalton M.D. 01/23/2025 9:25 AM Dictation Location: [employer] Electronically authenticated by: [id number] Y Date: 01/23/2025 09:25
[2025-01-23 08:59] VITALS: BP 131/75; PULSE 102
== END 2025-01-23 09:27 | disposition home or self-care (01) ==
LOC: US 08:29 → FBC 08:31
PROVIDERS: PCP Family Medicine; Visit Provider Obstetrics & Gynecology
DX: O99.283 Endocrine, nutritional and metabolic diseases complicating pregnancy, third trimester (principal); Z3A.36 36 weeks gestation of pregnancy; E06.3 Autoimmune thyroiditis
CPT/HCPCS: 36415; 76818; 84443

== ENCOUNTER 2025-01-27 14:55 | Outpatient (OUT) | payer BC, SELFPAY ==
--- OUTSIDE RECORDS SUMMARY | 2024-12-23 13:00 | XMS_ITS | Encounter Summary ---
Author Organization [facility] Address [address] [place] [address] Care Team Providers Care Music Therapist Name Role Phone Danny Schuler MD Primary Care Provider [phone] Danny Schuler MD Unavailable [phone] Reason for Visit * ReasonCommentsRoutine Visit Encounter Details DateTypeDepartmentCare Team (Latest Contact Info)Iskarbvaciw96/08/2025 2:00 PM EDTRoutine [facility] [address] [place] [address] Jessica Steen, [place] [address] [place] [address] Third trimester ([facility]); 31 weeks gestation of ([facility]) Social History Tobacco UseTypesPacks/DayYears UsedDateSmoking Tobacco: Some DaysCigarettes Smokeless Tobacco: NeverAlcohol UseStandard Drinks/WeekCommentsNot Currently0 (1 standard drink = 0.6 oz pure alcohol)2-4 drinks per weekHumiliation, Afraid, Rape, and Kick questionnaireAnswerDate RecordedWithin the last year, have you been afraid of your partner or ex-partner?No12/11/2022Within the last year, have you been humiliated or emotionally abused in other ways by your partner or ex-partner?No12/11/2022Within the last year, have you been kicked, hit, slapped, or otherwise physically hurt by your partner or ex-partner?No12/11/2022Within the last year, have you been raped or forced to have any kind of sexual activity by your partner or ex-partner?No12/11/2022Social Connection and Isolation Panel AnswerDate RecordedIn a typical week, how many times do you talk on the phone with family, friends, or neighbors?Three times a week12/11/2022How often do you get together with friends or relatives?Once a week12/11/2022How often do you attend alevism or congregational services?More than 4 times per year12/11/2022o you belong to any clubs or organizations such as alevism groups, unions, fraSLIC games or athletic groups, or school groups?No12/11/2022How often do you attend meetings of the clubs or organizations you belong to?Never12/11/2022re you , , , , never , or living with a partner? 12/11/2022UDIT-CAnswerDate RecordedQ1: How often do you have a drink containing alcohol?2-4 times a month12/11/2022Q2: How many drinks containing alcohol do you have on a typical day when you are drinking?1 or Q3: How often do you have six or more drinks on one occasion?Never12/11/2022Overall Financial Resource Strain (CARDIA)AnswerDate RecordedHow hard is it for you to pay for the very basics like food, housing, medical care, and heating?Somewhat hard 12/11/2022[facility] [place] of Occupational Health - Occupational Stress QuestionnaireAnswerDate RecordedDo you feel stress - tense, restless, nervous, or anxious, or unable to sleep at night because yourmind is troubled all the time - these days?Only a yidzpi1312/11/2022Exercise Vital SignAnswerDate Recorded On average, how many days per week do you engage in moderate to strenuous exercise (like a brisk walk)?7 days12/11/2022On average, how many minutes do you engage in exercise at this level?60 min12/11/2022Hunger Vital SignAnswerDate RecordedWithin the past 12 months, you worried that your food would run out before you got the money to buymore.Never true12/11/2022Within the past 12 months, the food you bought just didn't last and you didn't have money to get more.Never true12/11/2022RAPARE - TransportationAnswerDate RecordedIn the past 12 months, has lack of transportation kept you from medical appointments or from getting medications?No12/11/2022In the past 12 months, has lack of transportation kept you from meetings, work, or from getting things needed for daily living?No12/11/2022Housing Stability Vital SignAnswerDate RecordedIn the last 12 months, was there a time when you were not able to pay the mortgage or rent on time?No12/11/2022In the last 12 months, how many places have you lived?2 12/11/2022In the last 12 months, was there a time when you did not have a steady place to sleep or slept in [place] (including now)?No12/11/2022EducationAnswer Date RecordedWhat is the highest level of school you have completed or the highest degree you have received?11th grade12/10/2022Estimated Date of ZxizrbwwCsasoikmPrw61/06/2025ased on last menstrual period of 05/16/2024Sex and Gender InformationValueDate RecordedSex Assigned at MxdhcExibur48/25/2023 10:10 AM EDTLegal YvqSnkhek27/15/2023 6:51 PM EDTGender UefjxmjqWrednc88/25/2023 10:10 AM EDTSexual OrientationNot on filedocumented as of this encounter Last Filed Vital Signs Vital SignReadingTime TakenCommentsBlood Fqchtgww298/7012/23/2024 1:57 PM EDT Pulse--Temperature--Respiratory Rate--Oxygen Saturation--Inhaled Oxygen Concentration--Hkxxtx33.7 kg (171 lb 6.4 oz)12/23/2024 1:57 PM EDTHeight--Body Mass Index29.42104/28/2023 3:41 PM ESTdocumented in this encounter Progress Notes * Jessica Steen NP - 12/23/2024 2:00 PM EDT Reason for Appointment: Patient ID: Rachel Castro is a 24 y.o. female who presents for Routine Visit Patient presents today for Return OB appointment. MEDICATIONS Current Outpatient Medications Medication Instructions ondansetron (ZOFRAN) 4 mg, Oral, Every 6 hours PRN, Take 1 tablet by mouth every 6 hours as needed for nausea. ALLERGIES Allergies Allergen Reactions Azithromycin Hives Other [...] 2019 OVARIAN CYST REMOVAL Left 05/20/2020 [facility] William VAGINAL DELIVERY REVIEW OF SYSTEMS Review [...] nursing note reviewed. Exam conducted with a safe and vault mechanic present. Vitals: Estimated body mass index is 29.42 kg/m?? as calculated from the following: Height as of 02/26/24: 5' 4 . Weight as of this encounter: 171 lb 6.4 oz. BP: 110/70 Patient's last menstrual period was 05/16/2024. ASSESSMENT & PLAN ICD-10-CM 1. Third trimester ([facility]) Z34.93 2. 31 weeks gestation of ([facility]) Z3A.31 POCT urinalysis dipstick manually resulted Return OB: Patient presents today for a routine obstetrics appointment. Patient is currently 31w4d . Patient states she is doing well but has complaints of being tired due to current . Patient has verbalizes frequent movement. labor precautions was discussed/given and patient was instructed to perform kick counts three times a day. Orders Placed This Encounter Procedures POCT urinalysis dipstick manually resulted Follow Up: Patient is to return to office in 2 week for routine OB appointment. Documented by Jessica Steen NP on behalf of: Jessica Steen NP documented in this encounter Plan of Treatment DateTypeDepartmentCare Team (Latest Contact Info)Ilvpbarajfb49/19/2025 1:20 PM ESTRoutine [facility] [address] [place] [phone] Doc Thomas DO [address] [place] [place], [place] [id number] documented as of this encounter Procedures Procedure NamePriorityDate/TimeAssociated DiagnosisCommentsPOCT URINALYSIS IIRCGDILPtcryzg78/08/2025 2:01 PM EDT 31 weeks gestation of ([facility]) documented in this encounter Results * (ABNORMAL) POCT urinalysis dipstick manually resulted (12/23/2024 2:01 PM EDT) ComponentValueRef RangeTest MethodAnalysis TimePerformed AtPathologist SignatureColor, UAYellowClarity, UAClearGlucose, UA1+Negative - 1999(110) ++++ mg/dLBilirubin, UANegativeNegative - 4(70) +++ mg/dLKetones, UANegative Negative - 160(16) ++++ mg/dLSpec Grav, UA1.0151 - 1.03Blood, UANegative Negative - 50 Randall/mcLpH, UA6.05 - 9Protein, UANegativeNegative - 2000(20) ++++ mg/dLUrobilinogen, UA2.00.2 - 12 mg/dLLeukocytes, UATraceNegative - 500+++ Rick/mcLNitrite, UANegativeNegative - PositiveSpecimen (Source)Anatomical Location / LateralityCollection Method / VolumeCollection TimeReceived Time Urine12/23/2024 2:01 PM EDT Narrative Authorizing ProviderResult TypeResult StatusKrselene Conraderly NPPOINT OF CARE TEST ENTER/EDIT ORDERABLESFinal Result documented in this encounter Visit Diagnoses Diagnosis Third trimester ([facility]) state, incidental 31 weeks gestation of ([facility]) documented in this encounter Care Teams Team MemberRelationshipSpecialtyStart DateEnd Date Danny Schuler MD [address] [facility] [address] [place] [address] PCP - GeneralFamily Medicine07/24/22 Danny Schuler MD [address] [place] [address] PCP - Ziggy Richard06/16/20documented as of this encounter
--- OUTSIDE RECORDS SUMMARY | 2025-01-20 13:50 | XMS_ITS | Encounter Summary ---
Author Organization [facility] Address [address] [place] [address] Care Team Providers Care Clay Maker Name Role Phone Danny Schuler MD Primary Care Provider [phone] Danny Schuler MD Unavailable [phone] Reason for Visit * ReasonCommentsRoutine Visit Encounter Details DateTypeDepartmentCare Team (Latest Contact Info)Nvpupujlqtw76/05/2025 1:50 PM ESTRoutine [facility] [address] [facility] [place] [address] Pretty Chaidez PA [address] [address] [facility] [address] [place], [place] [id number] Third trimester ([facility]); 35 weeks gestation of ([facility]) Social History Tobacco UseTypesPacks/DayYears UsedDateSmoking Tobacco: Some [...] relatives?Once a week12/11/2022How often do you attend restorationist or sabianist services?More than 4 times per year12/11/2022o you belong to any clubs or organizations such as restorationist groups, unions, fraWonderloop or athletic groups, or school groups?No12/11/2022How often [...] food, housing, medical care, and heating?Somewhat hard 12/11/2022[facility] [place] of Occupational Health - Occupational Stress QuestionnaireAnswerDate RecordedDo you feel stress - tense, restless, nervous, or anxious, or unable to sleep at night because yourmind is troubled all the time - these days?Only a htrorv0312/11/2022Exercise Vital SignAnswerDate Recorded On average, how many [...] degree you have received?11th grade12/10/2022Estimated Date of AgedbmorXnyjdjxiFdk32/06/2025Based on last menstrual period of 05/16/2024Sex and Gender InformationValueDate RecordedSex Assigned at CbmziWmxdlf65/25/2023 10:10 AM EDTLegal IwrKxduha64/15/2023 6:51 PM EDTGender QeljmlmyJphxje06/25/2023 10:10 AM EDTSexual OrientationNot on filedocumented as of this encounter Last Filed Vital Signs Vital SignReadingTime TakenCommentsBlood Wcnzlohj53/6001/20/2025 2:02 PM EST Pulse--Temperature--Respiratory Rate--Oxygen Saturation--Inhaled Oxygen Concentration--Ndwkkb60.3 kg (174 lb 12.8 oz)01/20/2025 2:02 PM ESTHeight--Body Mass Zvrtm8188/11/2024 3:41 PM ESTdocumented in this encounter Progress [...] Left 2019 OVARIAN CYST REMOVAL Left 05/20/2020 [facility] William VAGINAL DELIVERY REVIEW OF SYSTEMS [...] was 05/16/2024. Assessment/Plan ICD-10-CM 1. Third trimester ([facility]) Z34.93 2. 35 weeks gestation of ([facility]) Z3A.35 POCT urinalysis dipstick manually resulted Return [...] Plan of Treatment DateTypeDepartmentCare Team (Latest Contact Info)Azuuvmskkrz28/19/2025 1:20 PM ESTRoutine [facility] [address] [facility] [place] [address] WilliamDoc leiva, [address] [facility] [place] [address] documented as of this encounter Procedures Procedure NamePriorityDate/TimeAssociated DiagnosisCommentsPOCT URINALYSIS ONOIPUSPGybsumw31/05/2025 2:07 PM EST 35 weeks gestation of ([facility]) documented in this encounter Results * (ABNORMAL) [...] Narrative Authorizing ProviderResult TypeResult StatusPretty IBANEZOINT OF [facility] TEST ENTER/EDIT ORDERABLESFinal Result documented in this encounter Visit Diagnoses Diagnosis Third trimester ([facility]) state, incidental 35 weeks gestation of ([facility]) documented in this encounter Care Teams Team MemberRelationshipSpecialtyStart DateEnd Date Danny Schuler MD [address] [address] PCP - GeneralFamily Medicine07/24/22 Danny Schuler MD [address] [address] PCP - Ziggy Richard06/16/20documented as of this encounter
--- OUTSIDE RECORDS SUMMARY | 2025-01-27 13:40 | XMS_ITS | Encounter Summary ---
Author Organization [facility] Address [address] [place] [address] Care Team Providers Care Trouble Locater Name Role Phone Danny Schuler MD Primary Care Provider [phone] Danny Schuler MD Unavailable [phone] Reason for Visit * ReasonCommentsRoutine Visit Encounter Details DateTypeDepartmentCare Team (Latest Contact Info)Fufrtaqnlbh10/12/2025 1:40 PM ESTRoutine [facility] [address] [place] [phone] Doc Thomas DO [address] [place] [address] 36 weeks gestation of ([facility]); Third trimester ([facility]); Gabby's disease; Low hemoglobin; Heart palpitations; Pelvic pressure in ([facility]) Social History Tobacco UseTypesPacks/DayYears UsedDateSmoking Tobacco: Some DaysCigarettes Smokeless Tobacco: NeverAlcohol UseStandard Drinks/WeekCommentsNot Currently0 (1 standard drink = 0.6 oz pure alcohol)2-4 drinks per weekHumiliation, Afraid, Rape, and Kick questionnaireAnswerDate RecordedWithin the last year, have you been afraid of your partner or ex-partner?No12/11/2022Within the last year, have you been humiliated or emotionally abused in other ways by your partner or ex-partner?No09/26/2023Within the last year, have you been kicked, [...] week12/11/2022How often do you attend advent or congregation services?More than 4 times per year12/11/2022o you belong to any clubs or organizations such as advent groups, unions, fraternal or athletic groups, or [...] and heating?Somewhat hard 12/11/2022[facility] [place] of Occupational Health - Occupational Stress QuestionnaireAnswerDate RecordedDo you feel stress - tense, restless, nervous, or anxious, or unable to sleep at night because yourmind is troubled all the time - these days?Only a siklza6712/11/2022Exercise Vital SignAnswerDate Recorded On average, how many [...] steady place to sleep or slept in [place] (including now)?No12/11/2022EducationAnswer Date RecordedWhat is the highest level of school you have completed or the highest degree you have received?11th grade12/10/2022Estimated Date of UmsvrbhzMwhcrcyyRlx05/06/2025Based on last menstrual period of 05/16/2024Sex and Gender InformationValueDate RecordedSex Assigned at EimiiIqmvob63/25/2023 10:10 AM EDTLegal UyoLizyvi85/15/2023 6:51 PM EDTGender QqqakxdxXurkcr08/25/2023 10:10 AM EDTSexual OrientationNot on filedocumented as of this encounter Last Filed Vital Signs Vital SignReadingTime TakenCommentsBlood Dppkughp816/80103/29/2024 2:05 PM EST Pulse--Temperature--Respiratory Rate--Oxygen Saturation--Inhaled Oxygen Concentration--Wmsqon49.8 kg (176 lb)01/27/2025 2:05 PM ESTHeight--Body Mass Index30. 3:41 PM ESTdocumented in this encounter Progress Notes * Lissette Anton, PIPELINE GANG SUPERVISOR - 01/27/2025 1:40 PM EST Reason for Appointment: Patient ID: [...] Left 2019 OVARIAN CYST REMOVAL Left 05/20/2020 [facility] William VAGINAL DELIVERY REVIEW OF SYSTEMS Review of Systems: Review of Systems Constitutional: Negative. HENT: Negative. Eyes: Negative. Respiratory: Negative. Cardiovascular: Negative. Gastrointestinal: Negative. Genitourinary: Negative. Musculoskeletal: Negative. Skin: Negative. Neurological: Negative. All other systems reviewed and are negative. Hematological: Negative. Endocrine: Negative. Allergic/Immunologic: Negative. OBJECTIVE Objective: Physical Exam Constitutional: Appearance: Normal appearance. She is well-developed. Genitourinary: Vulva normal. Cardiovascular: Rate and Rhythm: Normal rate and [...] nursing note reviewed. Exam conducted with a writer technical publications present. Vitals: Estimated body mass index is 30.21 kg/m?? as calculated from the following: Height as of 24: 5' 4 . Weight as of this encounter: 176 lb. BP: 120/80 Patient's last menstrual period was 05/16/2024. Assessment/Plan ICD-10-CM 1. 36 weeks gestation of ([facility]) Z3A.36 POCT urinalysis dipstick manually resulted 2. 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 Low hemoglobin D64.9 5. Heart palpitations R00.2 6. Pelvic pressure in ([facility]) O26.899 R10.20 Assessment/Plan Patient is doing well but has complaints of being tired and having maternal discomfort due to . Pt has complaints of pelvic pressure. Patient verbalized frequent movement and was instructed to perform kick counts three times per day. labor precautions were given, LARC consent was signed/declined, and GBS was obtained. Cervical check was performed and patient is 3cm dilated. Orders Placed This Encounter Procedures CULTURE, GROUP B STREP WITH SUSCEPTIBLITY POCT urinalysis dipstick manually resulted Follow Up: Patient is to return to office in 1 week for routine OB appointment Documented by Lissette Anton LPN on behalf of: Doc Thomas DO documented in this encounter Plan of Treatment DateTypeDepartmentCare Team (Latest Contact Info)Xihqvfmxxij16/19/2025 1:20 PM ESTRoutine [facility] [address] [place] [address] Doc Thomas DO [address] [place] [place], [place] [id number] NameTypePriorityAssociated DiagnosesOrder ScheduleCULTURE, GROUP B STREP WITH SUSCEPTIBLITYLabRoutine Third trimester ([facility]) Expected: 01/27/2025, Expires: 01/27/2026documented as of this encounter Procedures Procedure NamePriorityDate/TimeAssociated DiagnosisCommentsPOCT URINALYSIS HPZNMQRWPniovoh26/12/2025 2:14 PM EST 36 weeks gestation of ([facility]) Third trimester ([facility]) documented in this encounter Results * (ABNORMAL) POCT urinalysis dipstick manually resulted (01/27/2025 2:14 PM EST) ComponentValueRef RangeTest MethodAnalysis TimePerformed AtPathologist SignatureColor, UAStrawClarity, UAClearGlucose, UAPositiveNegative - 1999(110) ++++ mg/dLBilirubin, UANegativeNegative - 4(70) +++ mg/dLKetones, UAPositive Negative - 160(16) ++++ mg/dLSpec Grav, UA1.0301 - 1.03Blood, UANegative Negative - 50 Randall/mcLpH, UA5.55 - 9Protein, UAPositiveNegative - 2000(20) ++++ mg/dLUrobilinogen, UA1.00.2 - 12 mg/dLLeukocytes, UANegativeNegative - 500+++ Rick/mcLNitrite, UANegativeNegative - PositiveSpecimen (Source)Anatomical Location / LateralityCollection Method / VolumeCollection TimeReceived Time Urine01/27/2025 2:14 PM EST Narrative Authorizing ProviderResult TypeResult StatusCorey William DOPOINT OF CARE TEST ENTER/EDIT ORDERABLESFinal Result documented in this encounter Visit Diagnoses Diagnosis 36 weeks gestation of ([facility]) Third trimester ([facility]) state, incidental Gabby's disease Chronic lymphocytic thyroiditis Low hemoglobin Heart palpitations Palpitations Pelvic pressure in ([facility]) Other specified complication, antepartum documented in this encounter Care Teams Team MemberRelationshipSpecialtyStart DateEnd Date Danny Schuler MD [address] [place] [address] PCP - GeneralFamily Medicine07/24/22 Danny Schuler MD [address] [place] [address] PCP - Ziggy Richard06/16/20documented as of this encounter
--- OUTSIDE RECORDS SUMMARY | 2025-01-27 15:00 | XMS_ITS | Clinical Summary ---
Author Organization [facility] Address [address] [place] [address] Care Team Providers Care House Carpenter Name Role Phone Unavailable Primary Care Provider Unavailabl e Allergies Active AllergyReactionsCriticalityNoted XbybJpkexnawMlmduuelxeyuMulmr75/05/2021 Other Reaction(s): hives NdxwvEoctLct45/05/2021 Other Reaction(s): Unknown CtxunkjcqSjkciol08/25/2023 Other Reaction(s): body numbness Medications MedicationSigDispense QuantityRefillsLast FilledStart DateEnd DateStatus ondansetron ODT (Zofran-ODT) 4 mg disintegrating tablet Take 4 mg by mouth if needed.Active no.37/iron/folic acid (PRENATA ORAL) Take by mouth in the morning.Active Active Problems ProblemNoted DateDiagnosed Date28 weeks gestation of piqmaoqua22/14/2025bnormal bleeding in menstrual cycle02/19/2024Status post arthroscopic reconstruction of anterior cruciate ligament of left knee using quadricepstendon autograft 05/10/2023cute pain of left knee4Chronic tmhxndd7012/10/2022igarette gwombk8912/10/2022yst of ovary12/10/2022Hashimoto's artoajx6812/10/2022Hypotension determined by /25/2023Juvenile osteochondrosis of tibial tuberosity 12/10/2022Non morbid obesity due to excess jywmnolb91/25/2023ostural orthostatic tachycardia syndrome (POTS)12/14/20182964Fdrwnqvgayj30/15/2019Syncope and /15/2019CommentsYes Encounters DateTypeDepartmentCare WguyQjyhfrchzwd52/12/2025 3:20 PM EDTOffice Visit [facility] [address] [place] [address] Bibi Singh MD Syncope and collapse (Primary Dx); Neurocardiogenic syncope; 28 weeks gestation of ; Gabby's diseasefrom Last 3 Months Family History RelationNameStatusCommentsFatherAliveMotherAlive Social History Tobacco UseTypesPacks/DayYears UsedDateSmoking Tobacco: FormerCigarettes Smokeless Tobacco: Former Tobacco Cessation:Counseling Given: Not Answered Comments:Quite 6 month ago Alcohol UseStandard Drinks/WeekCommentsNot Currently0 (1 standard drink = 0.6 oz pure alcohol)HI Safety & EnvironmentAnswerDate RecordedFear of Current or Ex-PartnerNot on file05/09/2023Emotionally AbusedNot on file05/09/2023hysically AbusedNot on file05/09/2023Sexually AbusedNot on file05/09/2023hysically or Sexually AbusedNot on file05/09/2023CommentsYesSex and Gender InformationValueDate RecordedSex Assigned at XenoxBwytxd98/08/2025 2:10 PM EDT Legal GvnRjiucd16/29/2022 11:55 PM EDTGender UtxnwhgqSvqzgs65/08/2025 2:10 PM EDTSexual OrientationHeterosexual or Mafapxza35/08/2025 2:10 PM EDT Last Filed Vital Signs Vital SignReadingTime TakenCommentsBlood Vtmptfxt226/8009 4:02 PM EDT Gidwb685111/27/2024 4:02 PM EDTTemperature--Respiratory Rate--Oxygen Aymfkxvepx79% 11/27/2024 4:02 PM EDTInhaled Oxygen Concentration--Nprand87 kg (172 lb) 11/27/2024 4:02 PM ATOGmwkru399.1 cm (5' 5 )11/27/2024 4:02 PM EDTBody Mass Index28.62011/27/2024 4:02 PM EDT Plan of Treatment Health MaintenanceDue DateLast DoneCommentsIPV Vaccines (4 of 4 - 4-dose series) , 1999, 1999Depression Iiqctnkpf42/25/2012 Varicella Vaccines (2 of 2 - 2-dose childhood series)HPV Vaccines (1 - 3-dose series)06/09/2014dult Hnqiwpg20COVID-19 Vaccine (1 - season)2024Influenza Vaccine (#1)2024Pap Smear Zoster Vaccines (1 of 2)Pneumococcal Vaccine: Pediatrics (0 to 5 Years) and At-Risk Patients (6 to 64 Years)Aged Out 03/26/2000No longer eligible based on patient's age to complete this topicHIB EllvtosdOhhckeyih22/27/2001, 09/11/2000, 03/26/2000, Additional history exists Meningococcal WieltdhNnasppsyc06/28/2017Meningococcal B VaccineAged OutNo longer eligible based on patient's age to complete this topicRotavirus VaccinesAged Out No longer eligible based on patient's age to complete this topic Insurance
--- OUTSIDE RECORDS SUMMARY | 2025-01-27 15:00 | XMS_ITS | Encounter Summary ---
Author Organization [facility] Address [address] [place] [address] Care Team Providers Care Sheet Metal Mechanic Name Role Phone Danny Schuler MD Primary Care Provider [phone] Danny Schuler MD Unavailable [phone] Encounter Details DateTypeDepartmentCare Team (Latest Contact Info)Yoveberwfok07/08/2025Clinisync Result Encounter [facility] Unsolicited Doc Thomas, DO [address] [place] [address] Social History Tobacco UseTypesPacks/DayYears UsedDateSmoking Tobacco: Some [...] often do you attend oriental orthodox or yazidi services?More than 4 times per year12/11/2022o you belong to any clubs or organizations such as oriental orthodox groups, unions, [employer] or athletic groups, or school groups?No12/11/2022How often [...] and heating?Somewhat hard 12/11/2022[facility] [place] of Occupational Health - Occupational Stress QuestionnaireAnswerDate RecordedDo you feel stress - tense, restless, nervous, or anxious, or unable to sleep at night because yourmind is troubled all the time - these days?Only a vzyhcz5112/11/2022Exercise Vital SignAnswerDate Recorded On average, how many [...] degree you have received?11th grade12/10/2022Estimated Date of CmlsllzsHsmhkjmuJhh97/06/2025Based on last menstrual period of 05/16/2024Sex and Gender InformationValueDate RecordedSex Assigned at MwfosWsluko93/25/2023 10:10 AM EDTLegal MadXnaqzb37/15/2023 6:51 PM EDTGender XfcvvfvbVuhhps31/25/2023 10:10 AM EDTSexual OrientationNot on filedocumented as of this encounter Plan of Treatment DateTypeDepartmentCare Team (Latest Contact Info)Gcrnxxuuzqa97/19/2025 1:20 PM ESTRoutine [facility] [address] [place] [phone] Doc Thomas DO [address] [place], [place] [phone] documented as of this encounter Procedures Procedure NamePriorityDate/TimeAssociated DiagnosisCommentsALL THYROID STIM MLHFXKQEkokfjj98/08/2025 8:09 AM EST documented in this encounter Results * (ABNORMAL) ALL THYROID STIM HORMONE (01/23/2025 8:09 AM EST)ComponentValueRef RangeTest MethodAnalysis TimePerformed AtPathologist SignatureTHYROID STIMULATING HORMONE0.159(L)0.358 - 3.740 uIU/mLTBHSpecimen (Source)Anatomical Location / LateralityCollection Method / VolumeCollection TimeReceived Time 01/23/2025 8:09 AM EST01/23/2025 8:10 AM EST Narrative [facility] - 01/23/2025 9:02 AM EST Authorizing ProviderResult TypeResult StatusCorey William DOCLINISYNCFinal Result Performing OrganizationAddressCity/State/ZIP CodePhone Number [facility] documented in this encounter Visit Diagnoses Not on filedocumented in this encounter Care Teams Team MemberRelationshipSpecialtyStart DateEnd Date Danny Schuler MD [address] [facility] [address] [place] [address] PCP - GeneralFamily Medicine07/24/22 Danny Schuler MD [address] [place] [address] PCP - Ziggy Richard06/16/20documented as of this encounter
--- OUTSIDE RECORDS SUMMARY | 2025-01-27 15:00 | XMS_ITS | Encounter Summary ---
Author Organization [facility] Address [address] [place] [address] Care Team Providers Care Felt Finishing Supervisor Name Role Phone Danny Payne MD Primary Care Provider [phone] Danny Payne MD Unavailable [phone] Encounter Details DateTypeDepartmentCare Team (Latest Contact Info)Cstddkunwfu92/08/2025Clinisync Result Encounter [facility] Unsolicited Sintia Thomas, DO [address] [place] [address] Social History Tobacco UseTypesPacks/DayYears UsedDateSmoking Tobacco: Some [...] relatives?Once a week12/11/2022How often do you attend nondenominational or tenriism services?More than 4 times per year12/11/2022o you belong to any clubs or organizations such as nondenominational groups, unions, [email or web address] or athletic groups, or school groups?No12/11/2022How often [...] food, housing, medical care, and heating?Somewhat hard 12/11/2022[facility] [place] [facility] - Occupational Stress QuestionnaireAnswerDate RecordedDo you feel stress - tense, restless, nervous, or anxious, or unable to sleep at night because yourmind is troubled all the time - these days?Only a oupazh2412/11/2022Exercise Vital SignAnswerDate Recorded On average, how many [...] degree you have received?11th grade12/10/2022Estimated Date of RydyupydQljbbgkcRkj10/06/2025Based on last menstrual period of 05/16/2024Sex and Gender InformationValueDate RecordedSex Assigned at KmtqnXwnvds04/25/2023 10:10 AM EDTLegal FoqDamurc65/15/2023 6:51 PM EDTGender OyekdqpgLqnnsp65/25/2023 10:10 AM EDTSexual OrientationNot on filedocumented as of this encounter Plan of Treatment DateTypeDepartmentCare Team (Latest Contact Info)Biffbpnrsyc77/19/2025 1:20 PM ESTRoutine [facility] [address] [place] [phone] Sintia Thomas DO [address] [place], [place] [id number] documented as of this encounter Procedures Procedure NamePriorityDate/TimeAssociated DiagnosisCommentsUS OB BPP W NON-YZHLBK1801/23/2025 9:25 AM EST documented in this encounter Results * US OB BPP W NON-STRESS (01/23/2025 9:25 AM EST)Anatomical Region LateralityModalityOtherSpecimen (Source)Anatomical Location / Laterality Collection Method / VolumeCollection TimeReceived Time01/23/2025 9:25 AM EST Narrative 01/23/2025 9:28 AM EST [facility] ?[address] ? [place] [address] ? Ultrasound Report ? Signed ? Patient: RACHEL CASTRO ?MR#: [id number] ?? : 2000 ?Acct:[id number] ?? Age/Sex: 24 / F ?ADM Date: 01/23/25 ?? Loc: US ? Attending Dr: Sintia Thomas D.O. ? Ordering Physician: Sintia Thomas D.O. ?? Date of Service: 01/23/25 ?? Procedure(s): US OB BPP w non-stress ?? Accession Number(s): [id number] ? cc: Sintia Thomas D.O.; DANNY APYNE ? [facility] ? [address] ? [place] [address] ? Patient Name: ?? RACHEL Kristina CASTRO ? MRN: [facility]:[id number] ? date: 2000 ?Sex: F ?? Assigned Patient Location: [facility] ?? Current Patient Location: [facility] ?? Accession/Order Number: [id number] ?? Exam Date: 01/23/2025 ??08:41 ?Report Date: 01/23/2025 ??09:25 ? At the request of: ?? SINTIA ??WILLIAM ??DO ? Procedure: ??US OB BPP w non-stress ? US OB BPP w non-stress ??01/23/2025 9:01 AM ? SIGNS AND SYMPTOMS: ?? 02/20/2025 ?? HASHIMOTOS DISEASE E06.2 ? PROTOCOL: Transabdominal sonographic imaging of the gravid uterus. ? COMPARISON: 01/20/2025 ? FINDINGS: ? Estimated gestational age: 36 weeks 0 days ? heart rate: 161 bpm. ? Amniotic fluid index: 15.22 cm with the deepest vertical pocket measuring 7.0 ?? cm. ? Biophysical profile: ? breathing movements: 2/2 ? Gross body movements: 2/2 ? tone: 2/2 ? Amniotic fluid volume: 2/2 ? US/US OB BPP w non-stress ?? IMPRESSION: ? Biophysical profile: 10/23 ? Impression dictated by: Emmanuel Dalton M.D. ??01/23/2025 9:25 AM ? Dictation Location: RADIO-PC-17 ? Electronically authenticated by: [id number] ??Y ?? Date: 01/23/2025 ??09:25 ? Dictated By: ?Emmanuel Dalton M.D. ? Signed By: ?01/23/25927 ? DD/ 0925 ? TD/TT: ? Engineering Technical Analyst: Procedure Note Radiology, Radiologist, - 01/23/2025 [place] [address] Ultrasound Report Signed Patient: RACHEL CASTRO NMR#: [id number] : 2000Acct:[id number] Age/Sex: 24 / FADM Date: 01/23/25 Loc: US Attending Dr: Sintia Thomas D.O. Ordering Physician: Sintia Thomas D.O. Date of Service: 01/23/25 Procedure(s): US OB BPP w non-stress Accession Number(s): [id number] cc: iSntia Thomas D.O.; DANNY PAYNE The [address] [address] Patient Name: RACHEL CASTRO MRN: [id number] date: 2000 Sex: F Assigned Patient Location: [facility] Current Patient Location: [facility] Accession/Order Number: [id number] Exam Date: 01/23/2025 08:41 Report Date: 01/23/2025 09:25 At the request of: SINTIA THOMAS DO Procedure: US OB BPP w non-stress US OB BPP w non-stress 01/23/2025 9:01 AM SIGNS AND SYMPTOMS: 02/20/2025 HASHIMOTOS DISEASE E06.2 PROTOCOL: Transabdominal sonographic imaging of the gravid uterus. COMPARISON: 01/20/2025 FINDINGS: Estimated gestational age: 36 weeks 0 days heart rate: 161 bpm. Amniotic fluid index: 15.22 cm with the deepest vertical pocket measuring7.0 cm. Biophysical profile: breathing movements: 2/2 Gross body movements: 2/2 tone: 2/2 Amniotic fluid volume: 2/2 US/US OB BPP w non-stress IMPRESSION: Biophysical profile: 10/23 Impression dictated by: Emmanuel Dalton M.D. 01/23/2025 9:25 AM Dictation Location: [employer] Electronically authenticated by: [id number] Y Date: 9:25 Dictated By: Emmanuel Dalton M.D. Signed By:01/23/25927 DD/ 4 TD/TT: Engineering Technical Analyst: Authorizing ProviderResult TypeResult StatusCorey William DOCLINISYNC IMAGINGFinal Result documented in this encounter Visit Diagnoses Not on filedocumented in this encounter Care Teams Team MemberRelationshipSpecialtyStart DateEnd Date Danny Payne MD [address] [place] [address] PCP - GeneralFamily Medicine07/24/22 Danny Payne MD [address] [place] [address] PCP - Ziggy Richard06/16/20documented as of this encounter
--- OUTSIDE RECORDS SUMMARY | 2025-01-27 15:00 | XMS_ITS | Encounter Summary ---
Author Organization [facility] Address [address] [place] [address] Care Team Providers Care Kosher Inspector Name Role Phone Danny Schuler MD Primary Care Provider [phone] Danny Schuler MD Unavailable [phone] Encounter Details DateTypeDepartmentCare Team (Latest Contact Info)Vmwownibobd93/07/2025Telephone [facility] [address] [place] [place] [phone] Doc Thomas DO [address] [facility] [address] [place], [facility] Social History Tobacco UseTypesPacks/DayYears UsedDateSmoking Tobacco: Some [...] relatives?Once a week12/11/2022How often do you attend jain or congregational services?More than 4 times per year12/11/2022o you belong to any clubs or organizations such as jain groups, unions, fraternal or athletic groups, or [...] and heating?Somewhat hard 12/11/2022[facility] [place] [facility] - Occupational Stress QuestionnaireAnswerDate RecordedDo you feel stress - tense, restless, nervous, or anxious, or unable to sleep at night because yourmind is troubled all the time - these days?Only a pvtftp0712/11/2022Exercise Vital SignAnswerDate Recorded On average, how many [...] degree you have received?11th grade12/10/2022Estimated Date of VomwsyzwZodxvyvvSmk04/06/2025Based on last menstrual period of 05/16/2024Sex and Gender InformationValueDate RecordedSex Assigned at KzjchBdvfxp86/25/2023 10:10 AM EDTLegal DmdLitlwx24/15/2023 6:51 PM EDTGender ApjngqikDznrjg46/25/2023 10:10 AM EDTSexual OrientationNot on filedocumented as [...] Patient states that she is also having [place] thayer and these have been ongoing and 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 Patient advised if questions after our business hours reach out the [facility] and they are able to guide her also. PVU documented in this encounter Plan of Treatment DateTypeDepartmentCare Team (Latest Contact Info)Hgiquawnaxf47/19/2025 1:20 PM ESTRoutine [facility] [address] [place] [place] [phone] Doc Thomas DO [address] [facility] [place] [address] documented as of this encounter Visit Diagnoses Not on filedocumented in this encounter Care Teams Team MemberRelationshipSpecialtyStart DateEnd Date Danny Schuler MD [address] [facility] [address] [place] [address] PCP - GeneralFamily Medicine07/24/22 Danny Schuler MD [address] [place] [address] PCP - Ziggy Richard06/16/20documented as of this encounter
--- OUTSIDE RECORDS SUMMARY | 2025-01-27 15:00 | XMS_ITS | Clinical Summary ---
Author Organization [facility] Address [address] [place] [address] Care Team Providers Care Medical Office Specialist Name Role Phone Danny Payne MD Primary Care Provider Danny Payne MD Unavailable [phone] Allergies Active AllergyReactionsCriticalityNoted UmfkXwzwedalYrhjwalglwwbCkxmt71/05/2021 Other Reaction(s): hives LjvktPsirNtk20/05/2021 Other Reaction(s): Unknown Jblkwqnjs41/25/2023 Other Reaction(s): body numbness Medications MedicationSigDispense QuantityRefillsLast FilledStart DateEnd DateStatus ondansetron (Zofran) 4 MG tablet Indications:Nausea and vomiting in ([facility])Take 1 tablet (4 mg) by mouth every 6 (six) hours if needed for nausea or vomiting for up to 30 doses Take 1 tablet by mouth every 6 hours as needed for nausea. 30 tablet 5Active Active Problems ProblemNoted DateDiagnosed DateAbnormal bleeding in menstrual cycle02/19/2024 Status post arthroscopic reconstruction of anterior cruciate ligament of left knee using quadricepstendon qxyzmkdmn39/23/2024cute pain of left knee04/22/2023 Chronic ktpbtem2512/10/2022igarette crxfvo1812/10/2022yst of ovary12/10/2022 Gabby's cugngnj8512/10/2022Hypotension determined by cgcpictyrkt59/25/2023 Juvenile osteochondrosis of tibial jhcfeykjnd62/25/2023Non morbid obesity due to excess mjvobwui00/25/2023ostural orthostatic tachycardia syndrome (POTS) 12/10/2022Subclinical aexcsatngbfnrp36/25/2023Estimated Date of Delivery VivoktpvUnl84/06/2025Based on last menstrual period of 05/16/2024 Resolved Problems ProblemNoted DateDiagnosed DateResolved DateOverweight (BMI 25.0-29.9)12/10/2022 02/19/2024 Encounters DateTypeDepartmentCare ZpuqLwxybmbcdwm17/12/2025 1:40 PM ESTRoutine [facility] [address] [place] [address] Sintia Thomas, DO 36 weeks gestation of ([facility]); Third trimester ([facility]); Gabby's disease; Low hemoglobin; Heart palpitations; Pelvic pressure in ([facility])01/27/2025amboo flowsheet [facility] [address] [place] [phone] Sintia Thomas, DO 5Clinisync Result Encounter [facility] External Department Unsolicited Sintia Thomas, DO 01/23/2025linisync Result Encounter [facility]OM[facility] External Department Unsolicited Sintia Thomas, DO 01/22/2025Telephone [facility] [address] [place] [phone] Sintia Thomas, DO 01/20/2025 1:50 PM ESTRoutine [facility] [address] [place] [phone] Pretty Chaidez PA Third trimester ([facility]); 35 weeks gestation of ([facility])5Clinisync Result Encounter [facility]OM[facility] External Department Unsolicited Sintia Thomas, DO 01/20/2025amboo flowsheet [facility] [address] [place] [phone] Pretty Chaidez PA 10/27/2025Clinisync Result Encounter NOMS External Department Unsolicited Sintia Thomas, DO 01/05/2025 1:00 PM EDTRoutine [facility] [place] [facility] [address] [place] [address] Sintia Thomas, DO Third trimester ([facility]); 33 weeks gestation of ([facility])01/05/2025amboo flowsheet [facility] [place] [facility] [address] [place] [address] Sintia Thomas, DO 01/02/2025linisync Result Encounter [facility]OM[facility] External Department Unsolicited Provider, Generic External Data 12/26/2024linisync Result Encounter [facility] External Department Unsolicited Provider, Generic External Data 12/26/2024linisync Result Encounter [facility]OM[facility] External Department Unsolicited Provider, Generic External Data 12/26/2024linisync Result Encounter [facility]OM[facility] External Department Unsolicited Sintia Thomas, DO 12/23/2024 2:00 PM EDTRoutine [facility] [place] [facility] [address] [place] [address] Jessica Steen NP Third trimester ([facility]); 31 weeks gestation of ([facility])12/23/2024Refill [facility] [address] [place] [address] Azalea Schmitz MA Nausea and vomiting in ([facility])12/23/2024amboo flowsheet [facility] [address] [place] [address] Jessica Steen NP 12/09/2024 2:00 PM EDTRoutine [facility] [address] [place] [address] Sintia Thomas, DO Third trimester ([facility]); 29 weeks gestation of ([facility]); Yeast miiyfqmwg62/24/2025Bamboo flowsheet [facility] [address] [place] [phone] Sintia Thomas, 12/01/2024Telephone [facility] [address] [place] [phone] Azalea Schmitz, JARRETT 11/27/2024bstract [facility] [place] [facility] [address] [place] [address] [place] [address] Sintia Thomas, 11/25/2024 1:50 PM EDTRoutine [facility] [place] [facility] [address] [place] [phone] Jessica Steen, [place] Second trimester ([facility]); 27 weeks gestation of ([facility]); Gabby's csokdun4811/25/2024amboo flowsheet [facility] [place] [facility] [address] [place] [phone] Jessica Steen, [place] 11/24/2024linisync Result Encounter NOM[facility] External Department Unsolicited Provider, Generic External Data 11/19/2024Telephone [facility] [place] [facility] [address] [place] [phone] Janet Narayanan MA 11/12/2024linisync Result Encounter [facility]OM[facility] External Department Unsolicited Provider, Generic External Data 11/06/2024Orders Only [facility] [address] [place] [address] Coretta Cardenas LPN 11/05/2024Telephone [facility] [place] [facility] [address] [place] [phone] Azalea Schmitz MA 11/04/2024Telephone [facility] [address] [place] [phone] Lita SchmitzJARRETT birch 11/03/2024linisync Result Encounter NOMS External Department Unsolicited Provider, Generic External Data 11/03/2024Telephone [facility] [address] [place] [address] Nadir Azalea, MA 10/28/2024 2:30 PM EDTRoutine [facility] [address] [place] [phone] Pretty Chaidez PA Second trimester ([facility]); 23 weeks gestation of ([facility]); Diabetes mellitus screening; STD exposure; Well woman exam with routine gynecological exam; Heart zarxyktxkwzr10/13/2025linisync Result Encounter [facility]OM[facility] External Department Unsolicited Provider, Generic External Data 10/28/2024External Result Encounter [facility]OM[facility] External Department Unsolicited Jessica Steen NP 10/28/2024amboo flowsheet [facility] [address] [place] [address] Pretty Chaidez PA from Last 3 Months Immunizations ImmunizationAdministration DatesNext DueDTaP / HiB / IPV1999,1999 DTaP / Hib03/26/2000Hep A, ped/adol, 2 dose03/31/2012,08/31/2011Hep B, Adolescent or Frxxgbgro51/27/2001,1999,1999Hep B, adult11/12/2016Hib (HbOC)09/11/2000Hib / Hep B009/11/2000IPV09/11/2000MMR09/11/2000Meningococcal STG2J8711/12/2016Pneumococcal Conjugate PCV 7003/26/20009038Moyd24/15/2012Varicella 08/31/2011 Family History Medical HistoryRelationNameCommentsNo Known ProblemsBrotherHyperlipidemia [...] week12/11/2022How often do you attend sikh or uatsdin services?More than 4 times per year12/11/2022o you belong to any clubs or organizations such as sikh groups, unions, fraternal or athletic carmen ups, or school groups?No12/11/2022How often do you attend meetings of the clubs or organizations you belong to?Never12/11/2022re you , , , , never , or living with a partner?Likleie4612/11/2022 AUDIT-CAnswerDate RecordedQ1: How often do you have [...] food, housing, medical care, and heating?Somewhat hard12/11/2022 [facility] [place] of Occupational Health - Occupational Stress Questionnaire AnswerDate RecordedDo you feel stress - tense, restless, nervous, or anxious, or unable to sleep at night because yourmind is troubled all the time - these days? Only a ipuwxv8812/11/2022Exercise Vital SignAnswerDate RecordedOn average, how many days [...] to sleep or slept in ashelter (including now)?No12/11/2022EducationAnswerDate RecordedWhat is the highest level of school you have completed or the highest degree you have received?11th grade3Estimated Date of DeliveryCommentsYes 5Based on last menstrual period of 05/16/2024Sex and Gender Information ValueDate RecordedSex Assigned at BqgdnHjijbg78/25/2023 10:10 AM EDTLegal Sex Ocqmuc6705/30/2022 6:51 PM EDTGender OomqmjbhJclbfe31/25/2023 10:10 AM EDTSexual OrientationNot on file Last Filed Vital Signs Vital SignReadingTime TakenCommentsBlood Rwfegete912/80103/29/2024 2:05 PM EST Zumwt135202/19/2024 3:26 PM HJGRacohlpvroo77.4 ??C (97.5 ??F)05/03/2023 11:22 AM ESTRespiratory Rate--Oxygen Rryzxqreax44%02/19/2024 3:26 PM ESTInhaled Oxygen Concentration--Vsrjsg77.8 kg (176 lb)01/27/2025 2:05 PM DMUFcifnv986.6 cm (5' 4 )02/26/2024 3:41 PM ESTBody Mass Index30. 3:41 PM EST Plan of Treatment DateTypeDepartmentCare Team (Latest Contact Info)Jepareymcxa75/19/2025 1:20 PM ESTRoutine [facility] [address] [place] [phone] Sintia Thomas, [address] [place], [place] [phone] Health MaintenanceDue DateLast DoneCommentsPneumococcal Vaccine: Pediatrics (0 to 5 Years) and At-Risk Patients (6 to 64 Years) (1 of 2 - PCV)06/09/2018 03/26/2000COVID-19 Vaccine (1 - season)2024Influenza Vaccine (#1) 2025Postponed from 11/16/2024 (Patient Refused) Procedures Procedure NamePriorityDate/TimeAssociated DiagnosisCommentsPOCT URINALYSIS VODJIVLNAxukrfk11/12/2025 2:14 PM EST 36 weeks gestation of ([facility]) Third trimester ([facility]) US OB BPP W NON-ZXBGLW9601/23/2025 9:25 AM EST ALL THYROID STIM CPGCHHFLucimlm00/08/2025 8:09 AM EST US OB BPP W NON-TMBHTV6701/20/2025 5:10 PM EST POCT URINALYSIS HMPOSDYXGsbjrzl01/05/2025 2:07 PM EST 35 weeks gestation of ([facility]) US OB BPP W NON-CFTNBH3801/11/2025 9:15 PM EDT POCT URINALYSIS BYRRUVDIQgztxtq42/21/2025 1:04 PM EDT 33 weeks gestation of ([facility]) US OB BPP W NON-DTATVG6301/02/2025 3:02 PM EDT US OB XAYQDM8512/26/2024 11:31 AM EDT US OB BPP W NON-JJSTIN0812/26/2024 11:19 AM EDT ALL THYROID STIM IQSZVPRTnbkslq90/11/2025 8:13 AM EDT POCT URINALYSIS FKURNSQMKqqxjho17/08/2025 2:01 PM EDT 31 weeks gestation of ([facility]) POCT URINALYSIS RAWYZZSYBmccmva48/24/2025 2:14 PM EDT Third trimester ([facility]) POCT URINALYSIS SNYZFYLDPbsrxgr75/10/2025 3:33 PM EDT Second trimester ([facility]) CA ECHO DOPPLER ZJPCBDLL40/09/2025 4:39 PM EDT ECG 12-LEAD11/12/2024 12:06 PM EDT ALL THYROID STIM AORWGIMYmviewm29/19/2025 4:00 PM EDT GLUCOSE 1 MXUYEazzfoi06/19/2025 4:00 PM EDT ALL CBC WITH AUTO NLNHUoidpwi91/19/2025 4:00 PM EDT RECURRENT VAGINITIS (HTRX)Gkfmrlf5610/28/2024 4:48 PM EDT POCT URINALYSIS AIFSMYJVMjpsygn45/13/2025 2:43 PM EDT Second trimester ([facility]) IGP,APTIMA HPV,AGE JFQYAawacpi93/13/2025 2:25 PM EDT PAP FEMTGNaavbpv80/13/2025 12:00 AM EDTfrom Last 3 Months Results * (ABNORMAL) POCT urinalysis dipstick manually resulted (01/27/2025 2:14 PM EST) Only the most recent of7 resultswithin the time period is included. ComponentValueRef RangeTest MethodAnalysis TimePerformed AtPathologist Signature Color, UAStrawClarity, UAClearGlucose, UAPositiveNegative - 2000(110) ++++ mg/dL Bilirubin, UANegativeNegative - 4(70) +++ mg/dLKetones, UAPositiveNegative - 160(16) ++++ mg/dLSpec Grav, UA1.0301 - 1.03Blood, UANegativeNegative - 50 Randall/mcLpH, UA5.55 - 9Protein, UAPositiveNegative - 2000(20) ++++ mg/dL Urobilinogen, UA1.00.2 - 12 mg/dLLeukocytes, UANegativeNegative - 500+++ Rick/mcL Nitrite, UANegativeNegative - PositiveSpecimen (Source)Anatomical Location / LateralityCollection Method / VolumeCollection TimeReceived LmybEroqe29/12/2025 2:14 PM EST Narrative Authorizing ProviderResult TypeResult StatusCorey William DOPOINT OF CARE TEST ENTER/EDIT ORDERABLESFinal Result * US OB BPP W NON-STRESS (01/23/2025 9:25 AM EST) Only the most recent of5 resultswithin the time period is included. Anatomical RegionLateralityModalityOtherSpecimen (Source)Anatomical Location / LateralityCollection Method / VolumeCollection TimeReceived Time01/23/2025 9:25 AM EST Narrative 01/23/2025 9:28 AM EST [facility] ?[address] ? [place] [address] ? Ultrasound Report ? Signed ? Patient: ALETA CASTRO ?MR#: [id number] ?? : 2000 ?Acct:[id number] ?? Age/Sex: 24 / F ?ADM Date: 01/23/25 ?? Loc: US ? Attending Dr: Sintia Thomas D.O. ? Ordering Physician: Sintia Thomas D.O. ?? Date of Service: 01/23/25 ?? Procedure(s): US OB BPP w non-stress ?? Accession Number(s): [id number] ? cc: Sintia Thomas D.O.; DANNY PAYNE ? [facility] ? [address] ? [place] [address] ? Patient Name: ?? ALETA CASTRO ? MRN: [id number] ? date: 2000 ?Sex: F ?? Assigned Patient Location: [facility] ?? Current Patient Location: [facility] ?? Accession/Order Number: [id number] ?? Exam Date: 01/23/2025 ??08:41 ?Report Date: [...] Dictation Location: RADIO-PC-17 ? Electronically authenticated by: [id number] ??Y ?? Date: 01/23/2025 ??09:25 ? Dictated By: ?Emmanuel Dalton M.D. ? Signed By: ?01/23/25927 ? DD/ 0925 ? TD/TT: ? Tar Processing Technician: Procedure Note Radiology, Radiologist, MD - 01/23/2025 [place] [address] Ultrasound Report Signed Patient: ALETA CASTRO#: [id number] : 2000Acct:[id number] Age/Sex: 24 / FADM Date: 01/23/25 Loc: US Attending Dr: Sintia Thomas D.O. Ordering Physician: Sintia Thomas D.O. Date of Service: 01/23/25 Procedure(s): US OB BPP w non-stress Accession Number(s): [id number] cc: Sintia Thomas D.O.; DANNY PAYNE [address] [address] Patient Name: ALETA CASTRO MRN: [id number] date: 2000 Sex: F Assigned Patient Location: [facility] Current Patient Location: [facility] Accession/Order Number: [id number] Exam Date: 01/23/2025 08:41 Report Date: 01/23/2025 [...] Dalton M.D. 01/23/2025 9:25 AM Dictation Location: [place] [address] Electronically authenticated by: [id number] Y Date: 9:25 Dictated By: Emmanuel Dalton M.D. Signed By:01/23/25927 DD/ 4 TD/TT: Tar Processing Technician: Authorizing ProviderResult TypeResult StatusCorey William DOCLINISYNC IMAGINGFinal Result * (ABNORMAL) ALL THYROID STIM HORMONE (01/23/2025 8:09 AM EST) Only the most recent of3 resultswithin the time period is included. ComponentValueRef RangeTest MethodAnalysis TimePerformed AtPathologist Signature THYROID STIMULATING HORMONE0.159(L)0.358 - 3.740 uIU/mLTBHSpecimen (Source) Anatomical Location / LateralityCollection Method / VolumeCollection Time Received Time01/23/2025 8:09 AM EST01/23/2025 8:10 AM EST Narrative [facility] - 01/23/2025 9:02 AM EST Authorizing ProviderResult TypeResult StatusCorey William DOCLINISYNCFinal Result Performing OrganizationAddressCity/State/ZIP CodePhone Number [facility]NC TB * US OB GROWTH (12/26/2024 11:31 AM EDT)Anatomical RegionLateralityModalityOther Specimen (Source)Anatomical Location / LateralityCollection Method / Volume Collection TimeReceived Time12/26/2024 11:31 AM EDT Narrative 12/26/2024 11:33 AM EDT [facility] ?[address] ? [place] [address] ? Ultrasound Report ? Signed ? Patient: RAKEL,ALETA N ?MR#: [id number] ?? : 2000 ?Acct:[id number] ?? Age/Sex: 24 / F ?ADM Date: 12/26/24 ?? Loc: US ? Attending Dr: Sintia Thomas D.O. ? Ordering Physician: Sintia Thomas D.O. ?? Date of Service: 12/26/24 ?? Procedure(s): US OB growth ?? Accession Number(s): [id number] ? cc: Sintia Thomas D.O.; DANNY PAYNE ? [facility] ? [address] [facility] ? [place] [address] ? Patient Name: ?? ALETA CASTRO ? MRN: [facility]:[id number] ? date: 2000 ?Sex: F ?? Assigned Patient Location: ?? Current Patient Location: ? Accession/Order Number: [id number] ?? Exam Date: 12/26/2024 ??09:00 ?Report Date: [...] 52 bpm. ? motion documented by the public relations sales marketing.. ? Estimated weight 2093 g 71.4%. ? [...] Dictation Location: RADIO-PC-29 ? Electronically authenticated by: [id number] ??Y ?? Date: 12/26/2024 ??11:31 ? Dictated By: ?Deshaun Aguilar M.D. ? Signed By: ?12/26/24 1133 ? DD/ 30 ? TD/TT: ? Tar Processing Technician: Procedure Note Radiology, Radiologist, - 12/26/2024 [place] [address] Ultrasound Report Signed Patient: ALETA CASTRO NMR#: [id number] : 2000Acct:[id number] Age/Sex: 24 / FADM Date: 12/26/24 Loc: US Attending Dr: Sintia Thomas D.O. Ordering Physician: Sintia Thomas D.O. Date of Service: 12/26/24 Procedure(s): US OB growth Accession Number(s): [id number] cc: Sintia Thomas D.O.; DANNY PAYNE The [place] [address] Patient Name: ALETA CASTRO MRN: [id number] date: 2000 Sex: F Assigned Patient Location: US Current Patient Location: Accession/Order Number: [id number] Exam Date: 12/26/2024 09:00 Report Date: 12/26/2024 11:31 At the request of: SINTIA THOMAS DO Procedure: US OB growth Obstetric ultrasound for growth INDICATION: Gabby's disease FINDINGS: Single live anterior cephalic presentationlongitudinal lie. Amniotic fluid index 12.4 cm between the gestational age fifth wyw68po percentile. Largest pocket of fluid 5.1 cm. heart rate 1 52 bpm. motion documented by the public relations sales marketing.. Estimated weight 2093 g 71.4%. Gestation age 32 weeks and 0 days. Biparietal diameter 7.93 m. Head circumference 30.7 cm. Otherwise the 10.6 cm. Abdominal circumference 28.9 cm. Femur length 6.4 cm. US/US OB growth IMPRESSION: Single live intrauterine of approximately 30 weeks Impression dictated by: Deshaun Aguilar M.D. 12/26/2024 11:31 AM Dictation Location: [facility] Electronically authenticated by: [id number] Y Date: 1:31 Dictated By: Deshaun Aguilar M.D. Signed By:12/26/24 1133 DD/ 1131 TD/TT: Tar Processing Technician: Authorizing ProviderResult TypeResult StatusGeneric External Data Provider CLINISYNC IMAGINGFinal Result * CA ECHO DOPPLER COMPLETE (11/24/2024 4:39 PM EDT)Anatomical RegionLaterality ModalityOtherSpecimen (Source)Anatomical Location / LateralityCollection Method / VolumeCollection TimeReceived Time11/24/2024 4:39 PM EDT Narrative 11/24/2024 4:40 PM EDT [facility] ?[address] ? [place] [address] ? Cardiology Report ? Signed ? Patient: ALETA CASTRO ?MR#: [id number] ?? : 2000 ?Acct:[id number] ?? Age/Sex: 24 / F ?ADM Date: 11/12/24 ?? Loc: CARD ? Attending Dr: Jessica Steen ? Ordering Physician: Jessica Steen ?? Date of Service: 11/12/24 ?? Procedure(s): CA echo doppler complete ?? Accession Number(s): [id number] ? cc: Jessica Steen; DANNY PAYNE ? Patient Name: ? [facility] ? MR#: [id number] ? : 2000 ? Exam Date: 11/12/2024 [...] 1640 ? DD/ 1639 ? TD/TT: ? Tar Processing Technician: Procedure Note Radiology, Radiologist, MD - 11/24/2024 [place] [address] Cardiology Report Signed Patient: ALETA CASTRO NMR#: [id number] : 2000Acct:[id number] Age/Sex: Date: 11/12/24 Loc: CARD Attending Dr: Jessica Steen Ordering Physician: Jessica Steen Date of Service: 11/12/24 Procedure(s): CA echo doppler complete Accession Number(s): [id number] cc: Jessica Steen; DANNY PAYNE Patient Name: ALETA CASTRO MR#: [id number] : 2000 Exam Date: 11/12/2024 Ordering Doctor: JESSICA STEEN [facility] ECHOCARDIOGRAM REPORT PROCEDURE: CA ECHO DOPPLER COMPLETE [...] M.D. Signed By:11/24/24 1640 DD/ 1639 TD/TT: Tar Processing Technician: Authorizing ProviderResult TypeResult StatusGeneric External Data Provider CLINISYNC IMAGINGFinal Result * ECG 12-LEAD (11/12/2024 12:06 PM EDT)Anatomical RegionLateralityModalityOther Specimen (Source)Anatomical Location / LateralityCollection Method / Volume Collection TimeReceived Time11/12/2024 12:06 PM EDT Narrative 11/13/2024 1:34 PM EDT [facility] ?[address] ? [place] [address] ? Electrocardiograph Report ? Signed ? Patient: RAKELALETA N ?MR#: [id number] ?? : 2000 ?Acct:[id number] ?? Age/Sex: 24 / F ?ADM Date: 11/12/ ?? Loc: CARD ? Attending Dr: Jessica Steen ? Ordering Physician: Jessica Steen ?? Date of Service: 11/12/24 ?? Procedure(s): ECG 12 lead ?? Accession Number(s): [id number] ? cc: ?[facility] ? Test Date: ?2024-11-12 ?? Pat Name: ? SUMMER RAKEL ?Department: ? Room: ? - ?? Gender: ? Female ? Bi Developer: ? : ?2000 ? Requested By: JESSICA STEEN ?? Order Number: [id number] ?Reading MD: ?? Samar Samantha ? Measurements ?? Intervals ?Bernice ? Rate: ? 79 ? P: ?42 [...] Signed By: ?08/29/25 1334 ?08/29/25 1334 ? DD/ 1206 ? TD/TT: ? Tar Processing Technician: Procedure Note Radiology, Radiologist, - 11/13/2024 [place] [address] Electrocardiograph Report Signed Patient: ALETA CASTRO#: [id number] : 2000Acct:[id number] Age/Sex: 24 / FADM Date: 11/12/24 Loc: CARD Attending Dr: Jessica Steen Ordering Physician: Jessica Steen Date of Service: 11/12/24 Procedure(s): ECG 12 lead Accession Number(s): [id number] cc: [facility] Test Date: 2024-11-12 Pat Name: ALETA CASTRO Department: Room: - Gender: Female Bi Developer: : 2000 Requested By: JESSICA STEEN Order Number: [id number] Reading MD: Bibi Singh Measurements Intervals Bernice Rate: 79 P: 42 [place]: 158 QRS: 81 QRSD: 90 T: 41 QT: 353 QTc: 405 Interpretive Statements SINUS RHYTHM Normal EKG No previous ECG available for comparison Electronically Signed On 11-13-2024 13:34:21 EDT by Bibi Singh Dictated By: Bibi Singh M.D. Signed By:11/13/24 1334 11/13/24 1334 DD/ 1206 TD/TT: Tar Processing Technician: Authorizing ProviderResult TypeResult StatusGeneric External Data Provider CLINISYNC IMAGINGFinal Result * GLUCOSE 1 HOUR (11/03/2024 4:00 PM EDT)ComponentValueRef RangeTest Method Analysis TimePerformed AtPathologist SignatureGLUCOSE 1 JADB588<130 mg/dLTBH Specimen (Source)Anatomical Location / LateralityCollection Method / Volume Collection TimeReceived Time11/03/2024 4:00 PM EDT11/03/2024 4:01 PM EDT Narrative [facility]NC - 11/03/2024 6:33 PM EDT Authorizing ProviderResult TypeResult StatusJessica Steen [facility] BLOOD ORDERABLESFinal ResultPerforming OrganizationAddressCity/State/ZIP CodePhone Number CLINISYNC [facility] * (ABNORMAL) ALL CBC WITH AUTO DIFF (11/03/2024 4:00 PM EDT)ComponentValueRef RangeTest MethodAnalysis TimePerformed AtPathologist SignatureTBH WBC6.64.0 - 11.0 10 3/uLTBHTBH RBC3.34(L)4.20 - 5.40 10 6/uLTBHTBH HGB10.8(L)12.0 - 16.0 g/dLTBHTBH HCT31.2(L)36.0 - 48.0 %TBHTBH MCV93.481.0 - 99.0 fLTBHTBH MCH32.3 26.7 - 34.0 pgTBHTBH MCHC34.629.9 - 35.2 g/dLTBHTBH RDW12.711.0 - 15.0 %TBHTBH ICS397556 - 450 10 3/uLTBHTBH MPV9.79.5 - 13.5 [...] / VolumeCollection TimeReceived Time 11/03/2024 4:00 PM EDT08/ 4:01 PM EDT Narrative [facility] - 11/03/2024 4:26 PM EDT Authorizing ProviderResult TypeResult StatusJessica Steen NPCLINISYNCFinal ResultPerforming OrganizationAddressCity/State/ZIP CodePhone Number JEFFRY [facility] * RECURRENT VAGINITIS (HTRX) (10/28/2024 4:48 PM EDT)ComponentValueRef RangeTest MethodAnalysis TimePerformed AtPathologist SignatureATOPOBIUM XGQZIYC718.961 - 24.689 ppm10/30/2024 7:27 AM EDTHealthTrackRx at LabPortATOPOBIUM VAGINAENot Nahacnqa36.961 - 24.689 ppm10/30/2024 7:27 AM EDTHealthTrackRx at LabPortBVAB 2,3 (BACTERIAL VAGINOSIS ASSOCIATED BACTERIA 2, 3); MOBILUNCUS FIW424.961 - 24.689 ppm10/30/2024 7:27 AM EDTHealthTrackRx at LabPortBVAB 2,3 (BACTERIAL VAGINOSIS ASSOCIATED BACTERIA 2, 3); MOBILUNCUS SPPNot Juuvhlmz55.961 - 24.689 ppm10/30/2024 7:27 AM EDTHealthTrackRx at LabPortCANDIDA ALBICANS, PARAPSILOSIS, ANHSLMKXUX522.000 - 30.347 ppm10/30/2024 7:27 AM EDT [facility] at LabPortCANDIDA ALBICANS, PARAPSILOSIS, TROPICALISNot Detected 23.000 - 30.347 ppm10/30/2024 7:27 AM EDTHealthTrackRx at LabPortCANDIDA WLGRKKLV839.000 - 31.618 ppm10/30/2024 7:27 AM EDTHealthTrackRx at LabPort RICKEY GLABRATANot Wjzesmzu83.000 - 31.618 ppm10/30/2024 7:27 AM EDT [facility] at LabPortCANDIDA CRYZOP844.000 - 30.873 ppm10/30/2024 7:27 AM EDTHealthTrackRx at LabPortCANDIDA KRUSEINot Fxxmexuj13.000 - 30.873 ppm 10/30/2024 7:27 AM EDTHealthTrackRx at LabPortCHLAMYDIA XLSRCSAVQRD754.000 - 31.586 ppm10/30/2024 7:27 AM EDTHealthTrackRx at LabPortCHLAMYDIA TRACHOMATIS Not Ksqehxmk50.000 - 31.586 ppm10/30/2024 7:27 AM EDTHealthTrackRx at LabPort GARDNERELLA BDLJOMOLY226.961 - 24.689 ppm10/30/2024 7:27 AM EDTHealthTrackRx at LabWashington [facility] HospitalGARDNERELLA VAGINALISNot Ydjdnwyf89.961 - 24.689 ppm10/30/2024 7:27 AM EDTHealthTrackRx at LabPortMEGASPHAERA (TYPES 1, 2)019.961 - 24.689 ppm 10/30/2024 7:27 AM EDTHealthTrackRx at LabPortMEGASPHAERA (TYPES 1, 2)Not Bhtajyww12.961 - 24.689 ppm10/30/2024 7:27 AM EDTHealthTrackRx at LabPort NEISSERIA XZYYJESEXPU217.000 - 32.587 ppm10/30/2024 7:27 AM EDTHealthTrackRx at LabWashington County Memorial HospitalNEISSERIA GONORRHOEAENot Rdbqmzmn83.000 - 32.587 ppm10/30/2024 7:27 AM EDTHealthTrackRx at LabPortTRICHOMONAS NPCHMOLMD662.000 - 31.995 ppm 10/30/2024 7:27 AM EDTHealthTrackRx at LabPortTRICHOMONAS VAGINALISNot Osbhilmo53.000 - 31.995 ppm10/30/2024 7:27 AM EDTHealth[facility]Rx at LabPort MYCOPLASMA BKLLRYYSUE503.961 - 24.689 ppm10/30/2024 7:27 AM EDTHealthTrackRx at LabPortMYCOPLASMA GENITALIUMNot Tdtbulzk58.961 - 24.689 ppm10/30/2024 7:27 AM EDTHealthTrackRx at LabPortSpecimen (Source)Anatomical Location / LateralityCollection Method / VolumeCollection TimeReceived TimeTissue 10/28/2024 4:48 PM EDT10/30/2024 2:18 AM EDT Narrative Authorizing ProviderResult TypeResult StatusJessica Conraderly NPLAB BLOOD ORDERABLESFinal ResultPerforming OrganizationAddressCity/State/ZIP CodePhone Number [facility] [address] [facility] [address] [place] [address] * IGP,APTIMA HPV,AGE GDLN (10/28/2024 2:25 PM EDT)ComponentValueRef RangeTest MethodAnalysis TimePerformed AtPathologist SignatureAGE GDLN ACOG TESTINGNote. TBHComment: ?? TESTS ? RESULT ??FLAG ??UNITS ?REF RANGE ??LAB ?? Clinician Provided Cytology Information ?? Source.............Endocervix ?? No. of containers..01 ThinPrep Vial Age Algo ACOG Yaa... ??21-29 ? 01 ?FLAG LEGEND: ?L-Low Normal,H-High Normal,LL-Alert Low,HH-Alert High <-Panic Low,>-Panic High,A-Abnormal,AA-Critical Abnormal Performed at: 01 =G ?[facility] [place] ?? [address] [place] ??[phone] ?? Ludy Hector MD, IGP, RFX APTIMA HPV ASCUNote.TBHComment: ?? TESTS ? RESULT ??FLAG ??UNITS ?REF RANGE ??LAB DIAGNOSIS: ?02 ?? NEGATIVE FOR INTRAEPITHELIAL LESION OR MALIGNANCY. ?? THIS SPECIMEN WAS RESCREENED PART OF OUR SCHEDULE PLANNING MANAGER PROGRAM. Specimen adequacy: ?02 ?? Satisfactory for evaluation. No endocervical component is identified. Performed by: ? 02 ?? Brionna Mello Machine Slat Basket Maker ([facility]) QC reviewed by: ? 02 ?? Polina Simons, Machine Slat Basket Maker . ? 02 Note: ? Note ?02 [...] High,A-Abnormal,AA-Critical Abnormal Performed at: 02 WB ?[facility] [place] ?? [address] [place], [place] ??[address] ?? Ludy Hector MD, Performed at: ??=G - [facility] [place] [address] [place] [place], [place] ??[id number] Machine Tool Technician Instructor: Ludy Hector MD, Phone: ??[phone] Performed at: ??WB - [facility] [address] [place] ??[id number] Machine Tool Technician Instructor: Ludy Hector MD, Phone: ??[phone] Specimen (Source)Anatomical Location / LateralityCollection Method / [...] Teams Team MemberRelationshipSpecialtyStart DateEnd Danny Payne MD [address] [place] [address] PCP - GeneralFamily Medicine07/24/22 Danny Payne MD [address] [address] KAT Trinh [facility]06/16/20
--- OUTSIDE RECORDS SUMMARY | 2025-01-27 15:00 | XMS_ITS | Encounter Summary ---
Author Organization [facility] Address [address] [place] [address] Care Team Providers Care Wood Handler Name Role Phone Danny Schuler MD Primary Care Provider [phone] Danny Schuler MD Unavailable [phone] Encounter Details DateTypeDepartmentCare Team (Latest Contact Info)Qrhpqmreayv66/12/2025amboo flowsheet [facility] [address] [place] [phone] Doc Thomas DO [address] [place], [place] [address] Social History Tobacco UseTypesPacks/DayYears UsedDateSmoking Tobacco: Some [...] week12/11/2022How often do you attend druze or jain services?More than 4 times per year12/11/2022o you belong to any clubs or organizations such as druze groups, unions, fraternal [...] medical care, and heating?Somewhat hard 12/11/2022[facility] [place] of Occupational Health - Occupational Stress QuestionnaireAnswerDate RecordedDo you feel stress - tense, restless, nervous, or anxious, or unable to sleep at night because yourmind is troubled all the time - these days?Only a ynszxr7312/11/2022Exercise Vital SignAnswerDate Recorded On average, how many [...] degree you have received?11th grade12/10/2022Estimated Date of VimoliwyZxcgqjkzKnx17/06/2025Based on last menstrual period of 05/16/2024Sex and Gender InformationValueDate RecordedSex Assigned at AbcqaYskvak87/25/2023 10:10 AM EDTLegal UxzMbzoei54/15/2023 6:51 PM EDTGender BxeuddlkSiorgc27/25/2023 10:10 AM EDTSexual OrientationNot on filedocumented as of this encounter Plan of Treatment DateTypeDepartmentCare Team (Latest Contact Info)Yviwbnlzkav40/19/2025 1:20 PM ESTRoutine [facility] [address] [place] [address] Doc Thomas DO [address] [place] [address] documented as of this encounter Visit Diagnoses Not on filedocumented in this encounter Care Teams Team MemberRelationshipSpecialtyStart DateEnd Date Danny Schuler MD [address] [address] PCP - GeneralFamily Medicine07/24/22 Danny Schuler MD [address] [address] PCP - [place] [employer]06/16/20documented as of this encounter
--- OUTSIDE RECORDS SUMMARY | 2025-01-27 15:00 | XMS_ITS | Encounter Summary ---
Author Organization [facility] Address [address] [place] [address] Care Team Providers Care Wood Patternmaker Apprentice Name Role Phone Danny Payne MD Primary Care Provider [phone] Danny Payne MD Unavailable [phone] Encounter Details DateTypeDepartmentCare Team (Latest Contact Info)Mosjizsbhaf95/05/2025Clinisync Result Encounter [facility] Unsolicited Sintia Thomas, DO [address] [facility] [place] [address] Social History Tobacco UseTypesPacks/DayYears UsedDateSmoking Tobacco: Some [...] week12/11/2022How often do you attend samaritan or sabianist services?More than 4 times per year12/11/2022o you belong to any clubs or organizations such as samaritan groups, unions, fraCapiota or athletic groups, or school groups?No12/11/2022How often [...] food, housing, medical care, and heating?Somewhat hard 12/11/2022[facility] [place] of Occupational Health - Occupational Stress QuestionnaireAnswerDate RecordedDo you feel stress - tense, restless, nervous, or anxious, or unable to sleep at night because yourmind is troubled all the time - these days?Only a fxfpkk1612/11/2022Exercise Vital SignAnswerDate Recorded On average, how many [...] degree you have received?11th grade12/10/2022Estimated Date of XoaasrjjTyurntznMzy52/06/2025Based on last menstrual period of 05/16/2024Sex and Gender InformationValueDate RecordedSex Assigned at LcqvoZddvgz70/25/2023 10:10 AM EDTLegal VlnXhyswf91/15/2023 6:51 PM EDTGender BduhywpjCiyeca63/25/2023 10:10 AM EDTSexual OrientationNot on filedocumented as of this encounter Plan of Treatment DateTypeDepartmentCare Team (Latest Contact Info)Emwzamvrgtx95/19/2025 1:20 PM ESTRoutine [facility] [address] [place] [phone] Sintia Thomas DO [address] [facility] [address] [place], [place] [phone] documented as of this encounter Procedures Procedure NamePriorityDate/TimeAssociated DiagnosisCommentsUS OB BPP W NON-EXLPHN4301/20/2025 5:10 PM EST documented in this encounter Results * US OB BPP W NON-STRESS (01/20/2025 5:10 PM EST)Anatomical Region LateralityModalityOtherSpecimen (Source)Anatomical Location / Laterality Collection Method / VolumeCollection TimeReceived Time01/20/2025 5:10 PM EST Narrative 01/20/2025 5:13 PM EST [facility] ?[address] ? [place] [address] ? Ultrasound Report ? Signed ? Patient: ALETA CASTRO ?MR#: [id number] ?? : 2000 ?Acct:[id number] ?? Age/Sex: 24 / F ?ADM Date: 01/20/25 ?? Loc: [facility] ? Attending Dr: Sintia Thomas D.O. ? Ordering Physician: Sintia Thomas D.O. ?? Date of Service: 01/20/25 ?? Procedure(s): US OB BPP w non-stress ?? Accession Number(s): [id number] ? cc: Sintia Thomas D.O.; DANNY PAYNE ? [facility] ? [address] ? [place] [address] ? Patient Name: ?? ALETA N RAKEL ? MRN: [facility]:[id number] ? date: 2000 ?Sex: F ?? Assigned Patient Location: [facility] ?? Current Patient Location: ? Accession/Order Number: [id number] ?? Exam Date: 01/20/2025 ??15:17 ?Report Date: [...] Dictation Location: RADIO-PC-20 ? Electronically authenticated by: [id number] ??Y ?? Date: 01/20/2025 ??17:10 ? Dictated By: ?Loi Ellington D.O. ? Signed By: ?11/05/25 1713 ? DD/ 1710 ? TD/TT: ? Plastic Tool Maker: Procedure Note Radiology, Radiologist, MD - 11/05/2025 [place] [address] Ultrasound Report Signed Patient: ALETA CASTRO NMR#: [id number] : 2000Acct:[id number] Age/Sex: 24 / FADM Date: 01/20/25 Loc: [facility]BCO Attending Dr: Sintia Thomas D.O. Ordering Physician: Sintia Thomas D.O. Date of Service: 01/20/25 Procedure(s): US OB BPP w non-stress Accession Number(s): [id number] cc: Sintia Thomas D.O.; DANNY PAYNE The [place] [id number] Patient Name: ALETA CASTRO MRN: [id number] date: 2000 Sex: F Assigned Patient Location: [facility] Current Patient Location: Accession/Order Number: [id number] Exam Date: 01/20/2025 15:17 Report Date: 01/20/2025 [...] Ellington M.D. 01/20/2025 5:10 PM Dictation Location: [place] [address] Electronically authenticated by: [id number] Y Date: 7:10 Dictated By: Loi Ellington D.O. Signed By:01/20/251712 DD/ 09 TD/TT: Plastic Tool Maker: Authorizing ProviderResult TypeResult StatusCorey William DOCLINISYNC IMAGINGFinal Result documented in this encounter Visit Diagnoses Not on filedocumented in this encounter Care Teams Team MemberRelationshipSpecialtyStart DateEnd Date Danny Payne MD [address] [place] [address] PCP - GeneralFamily Medicine07/24/22 Danny Payne MD [address] [place] [address] PCP - Ziggy Richard06/16/20documented as of this encounter
--- OUTSIDE RECORDS SUMMARY | 2025-01-27 15:00 | XMS_ITS | Encounter Summary ---
Author Organization [facility] Address [address] [place] [address] Care Team Providers Care Remodeler Name Role Phone Danny Schuler MD Primary Care Provider [phone] Danny Schuler MD Unavailable [phone] Encounter Details DateTypeDepartmentCare Team (Latest Contact Info)Ljgfcbdpwca64/05/2025amboo flowsheet KYE [facility] OBGYKristina [address] [place] [address] Pretty Chaidez PA [address] [place], [place] [address] Social History Tobacco UseTypesPacks/DayYears UsedDateSmoking Tobacco: Some [...] relatives?Once a week12/11/2022How often do you attend lutheran or anabaptism services?More than 4 times per year12/11/2022o you belong to any clubs or organizations such as lutheran groups, unions, fraZiqitza Health Care or athletic groups, or school groups?No12/11/2022How often [...] medical care, and heating?Somewhat hard 12/11/2022[facility] [place] of Occupational Health - Occupational Stress QuestionnaireAnswerDate RecordedDo you feel stress - tense, restless, nervous, or anxious, or unable to sleep at night because yourmind is troubled all the time - these days?Only a eiqvai3312/11/2022Exercise Vital SignAnswerDate Recorded On average, how many [...] degree you have received?11th grade3Estimated Date of ZwqfxyxvLuvqopdhJiq63/06/2025Based on last menstrual period of 05/16/2024Sex and Gender InformationValueDate RecordedSex Assigned at XilaqZlmpqo81/25/2023 10:10 AM EDTLegal DoxLhxxtz94/15/2023 6:51 PM EDTGender VkmpxapbKihfpd71/25/2023 10:10 AM EDTSexual OrientationNot on filedocumented as of this encounter Plan of Treatment DateTypeDepartmentCare Team (Latest Contact Info)Foopggisfeu11/19/2025 1:20 PM ESTRoutine [facility] [address] [place] [address] Doc Thomas DO [address] [address] documented as of this encounter Visit Diagnoses Not on filedocumented in this encounter Care Teams Team MemberRelationshipSpecialtyStart DateEnd Date Danny Schuler MD [address] [place] [address] [address] PCP - GeneralFamily Medicine07/24/22 Danny Schuler MD [address] [place] [address] [address] PCP - [place] [employer]06/16/20documented as of this encounter
[2025-01-27 15:04] VITALS: BP 136/85; PULSE 109
--- OUTSIDE RECORDS SUMMARY | 2025-01-27 15:09 | XMS_ITS | CCD ---
Author Organization [facility] CliniSyut Care Team Providers Care Asbestos Removal Supervisor Name Role Phone BECERRIL, DAVID P Unavailable Unavailable BECERRIL, DAVID P Unavailable Unavailable BECERRIL, DAVID P Unavailable Unavailable BECERRIL, DAVID P Unavailable Unavailable BECERRIL, DAVID P Unavailable Unavailable BLANCA PABLO AM Unavailable Unavailable BLANCA PABLO AM Unavailable Unavailable SELF, REFERRED Unavailable Unavailable ROSALIE PAYNE Unavailable Unavailable Unavailable Primary Care Provider UnavailRosalie Muhammad MD Primary Care Provider [phone] DAVID DOMINGUEZ Attending Unavailable ARTIS YODER Attending [...] able Rosalie Payne MD Primary Care Provider [phone] Pocanaly, Myron Washburn Admitting Unavailable PocosMyron Referring Unavailable Pocos, Myron Washburn Attending Unavailable Pocos, Myron Washburn Referring Unavailable Pocos, Myron Washburn Attending Unavailable Myron Marroquin Admitting Unavailable MD Rosalie Payne Primary Care Provider DO Marcelle Espinosa Attending Provider [phone] Marcelle Espinosa Attending Unavailable Marcelle Espinosa Admitting Unavailable Rosalie Payne Primary Care Unavailable Rosalie Payne MD Primary Care Provider Rosalie Payne MD Primary Care Provider Rosalie Payne MD Unavailable LESA SINGH Attending Unavailable WILLIAMDOC YOUNGBLOOD Attending Unavailable PRETTY CHAIDEZ Attending Unavailable DOC THOMAS Attending Unavailable ROSALIE PAYNE Attending Unavailable MYRON MARROQUIN Attending Unavailable PRETTY CHAIDEZ Attending Unavailable LUNA STEEN Attending Unavailable DOC THOMAS Attending Unavailable LUNA STEEN Attending Unavailable DOC THOMAS Attending Unavailable PRETTY CHAIDEZ Attending Unavailable Allergies Allergy ClassificationReported Allergen(s)Allergy TypeDate of OnsetReaction(s) FacilityLatex (1 source)LatexSubstance Pveesew68-46-2718KavwQgjeu HealthMacrolides (antibiotic) (1 source)AzithromycinDrug Pvzfrmk55-72-0650EhjerOgieu Health (20 sources)Azithromycin; Translations: [azithromycin]Drug Ddadbbw74-48-1100 [facility] (11 sources)Latex; Translations: [Latex]Propensity to adverse reactions to drug 23-70-0056YnkdZdjuy Health (1 source)AzithromycinDrug Vuytrny69-17-3457Eqa [facility] (1 source)natural latex rubberDrug allergy (disorder)The [facility] (2 sources)Banana Extract; Translations: [Banana]Drug AllergyVomiting (disorder) [facility] (20 sources)Midodrine; Translations: [midodrine]Drug Iabrecf74-39-0914RkchnmreSelect [facility] (20 sources)LatexAllergy to mrynqcjvc91-99-7881YfjtKBTR Healthcare (1 source)AzithromycinDrug Hgwodng12-24-8389[facility]ijxkxaL[facility] (1 source)LatexDrug allergy (disorder)61-91-0012EgyqwgsykLima [facility] Rep[facility] Medications Current Medications MedicationDrug Class(es)DatesSig (Normalized)Sig (Original)[id number] 200 actuat albuterol 0.09 mg/actuat metered dose inhaler (2 sources)beta2-Adrenergic AgonistStart: 11-91-6487fmon 2 puff(s) by inhalation four times daily as neededAlbuterol Sulfate HFA 108 (90 Base) MCG/ACT 2 puffs Inhalation 4 times a day prn Aug, ActiveStart: 60-55-3521juqp 2 puff(s) by inhalation four times daily as neededAlbuterol Sulfate HFA 108 (90 Base) MCG/ACT 2 puffs Inhalation 4 times a day prn Aug, Not-Taking/PRN fluconazole 150 mg oral tablet (2 sources)Azole AntifungalStart: 12-09-2024 End: 40-03-6124biglthgdxol (Diflucan) 150 MG tablet Indications: Yeast infection Take 1 tablet (150 mg) by mouth 1(one) time for 1 dose Repeat in 7 days if symptoms persist. 2 tablet 12/09/2024 12/09/2024 Activefluticasone propionate 0.05 mg/actuat metered dose nasal spray (4 sources)CorticosteroidStart: 36-13-3544paplriqcuaa (Flonase) 50 MCG/ACT nasal sprayStart: 89-79-6465arqu 1 spray(s) nasal route once dailyFluticasone Propionate 50 MCG/ACT 1 spray in each nostril Nasally Once a day for 14 15 Mar, 2023 ActiveStart: 07-11-5022lefy 2 spray(s) nasal route once daily as needed Fluticasone Propionate 50 MCG/ACT 2 sprays Nasally Once a day for 14 day(s) Aug, Not-Taking/PRNStart: 59-94-8280jaoh 2 spray(s) nasal route once daily Fluticasone Propionate 50 MCG/ACT 2 sprays Nasally Once a day for 14 day(s) Aug, Activeibuprofen 600 mg oral tablet (20 sources)Nonsteroidal Anti-inflammatory DrugStart: 74-32-3180nkoz 1 tablet by mouth four times daily as needed for painibuprofen (ADVIL;MOTRIN) 600 MG tablet Take 1 tablet by mouth 4 times daily as needed for Pain 30 tablet 0 12/14/2020 Active End: 06-02-4890nzgxilhkf 200 MG tablet Take by mouth. 07/16/2024 Discontinued magnesium oxide 400 mg oral tablet (5 sources)Start: 07-16-2024 End: 13-42-3669ikkc 1 tablet by mouth once dailymagnesium oxide (Mag-Ox) 400 MG tablet Indications: Cluster headache, not intractable, unspecified chronicity pattern Take 1 tablet (400 mg) by mouth Daily 30 tablet 6 07/16/2024 08/15/2024 Activeondansetron 4 mg oral tablet (20 sources)Serotonin-3 Receptor AntagonistStart: 29-62-0108gfay 1 tablet by mouth every six hours as needed for nausea and nausea, then take 1 tablet by mouthevery six hours as needed for nausea and nauseaondansetron (Zofran) 4 MG tablet Indications: Nausea and vomiting in ([facility]) Take 1 tablet (4 mg) by mouth every 6 (six) hours if needed for nausea or vomiting for up to 30 doses Take 1 tablet by mouth every 6 hours as needed for nausea. 30 tablet 12/23/2024 ActiveStart: 10-05-2024 End: 52-80-3770cicz 1 tablet by mouth every six hours for nauseaondansetron ODT (Zofran-ODT) 4 MG disintegrating tablet Indications: Nausea and vomiting during ([facility]) Take 1 tablet (4 mg) by mouth every 6 (six) hours if needed for nausea or vomiting 30 tablet 3 10/05/2024 11/04/2024 ActiveStart: 08-26-2024 End: 70-49-0192cjbc 1 tablet by mouth every six hours for nauseaondansetron ODT (Zofran-ODT) 4 MG disintegrating tablet Indications: Nausea and vomiting during ([facility]) Take 1 tablet (4 mg) by mouth every 6 (six) hours if needed for nausea or vomiting 30 tablet 3 08/26/2024 09/30/2024 ActiveStart: 07-06-2024 End: 29-14-9895okwt 1 tablet by mouth every six hours for nauseaondansetron ODT (Zofran-ODT) 4 MG disintegrating tablet Indications: Nausea and vomiting during Take 1 tablet (4 mg) by mouth every 6 (six) hours if needed for nausea or vomiting 30 tablet 2 07/06/2024 08/05/2024 Activepenicillin v potassium 500 mg oral tablet (1 source)Start: 61-65-9079yimj 1 tablet by mouth every eight hoursPenicillin V Potassium 500 MG 1 tablet Orally tid for 10 day(s) 14 Apr, 2021 Active polysaccharide iron complex 391 mg oral capsule (5 sources)Start: 11-05-2024 End: 83-42-2267bsne 1 capsule by mouth once dailyiron polysaccharides (ProFe) 391.3 (180 Fe) MG capsule Indications: Low hemoglobin Take 1 capsule (391.3 mg) by mouth Daily 30 capsule 3 11/05/2024 12/05/2024 ActivetiZANidine 4 mg oral tablet (2 sources)Central alpha-2 Adrenergic AgonistStart: 91-46-0262flzm 1 tablet by mouth every eight hours as needed for paintiZANidine (ZANAFLEX) 4 MG tablet Take 1 tablet by mouth every 8 hours as needed (pain and muscle tension/cramps) 10 tablet 0 12/14/2020 Active Completed/Discontinued Medications MedicationDrug Class(es)DatesSig (Normalized)Sig (Original)acetaminophen 325 mg oral tablet (1 source)Start: 09-19-2020 End: 27-32-6562acibgftpphtbf (TYLENOL) tablet 650 mgCitalopram (7 sources)Serotonin Reuptake InhibitorCitalopram Hydrobromide Not-Taking/PRN take 1 tablet by mouth once dailycitalopram (CELEXA) 20 MG tablet Take 20 mg by mouth daily 0 ActiveCitalopram Hydrobromide Activeclotrimazole 10 mg oral lozenge (3 sources)Azole AntifungalStart: 17-70-6771Pbiyyikppkrg 10 MG 1 wenceslao Mouth/Throat Three times a day for 7 day(s) Apr, Not-Taking/PRN medroxyPROGESTERone (4 sources)ProgestinDepo-Provera Not-Taking/PRNDepo-Provera Activemetoclopramide 10 mg oral tablet (12 sources)Dopamine-2 Receptor AntagonistStart: 07-16-2024 End: 35-08-6968zeydvnvbyeuoff (Reglan) 10 MG tablet Indications: Nausea/vomiting in [...] tablet (2 sources)Nonsteroidal Anti-inflammatory DrugStart: 05-24-2021 End: 66-84-6576tavepuce sodium (ANAPROX) tablet 550 mgStart: 31-36-8067rnxx 1 tablet by mouth twice daily at mealtimenaproxen (NAPROSYN) 500 MG tablet Take 1 tablet by mouth 2 times daily (with meals) 20 tablet 1 05/24/2021 Active pantoprazole 40 mg delayed release oral tablet (17 sources)Proton Pump InhibitorStart: 02-17-2024 End: 86-00-0378xviw 1 tablet by mouth before mealtimepantoprazole (ProtoNix) 40 MG EC tablet Take 40 mg by mouth in the morning. Take before meals. 02/17/2024 09/30/2024 DiscontinuedpredniSONE 20 mg oral tablet (3 sources)Start: 91-78-3553zuzw 1 tablet by mouth every twelve hourspredniSONE 20 MG 1 tablet Orally 2 times a day for 5 day(s) Aug, Not-Taking/PRN Start: 66-70-4081saxn 1 tablet by mouth every twelve hourspredniSONE 20 MG 1 tablet Orally bid for 5 day(s) Apr, Active Problems Active Problems Problem ClassificationProblemDateDocumented DateEpisodic/ChronicAbdominal pain (11 sources)Pelvic and perineal pain; Translations: [Right lower quadrant pain] Onset: 20-61-4279DwuelzqzNjnjzvd dysrhythmias (20 sources)Postural orthostatic tachycardia syndrome ; Translations: [Postural orthostatic tachycardia syndrome (POTS)]Onset: 909095-65-2661Juirwbn Cardiac dysrhythmias (4 sources)Palpitations; Translations: [Palpitations]21-11-3864Cybowosn Coagulation and hemorrhagic disorders (1 source)Qualitative platelet defects; 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]Onset: 91-14-2572NerqiheQpsnireyyv disorders (4 sources)Gastroesophageal reflux disease; Translations: [Gastro-esophageal reflux disease without esophagitis]98-11-2332WbjxhcmYzzrsdyh; including migraine (1 source)Cluster headache; Translations: [Cluster headache syndrome, unspecified, not intractable]98-41-4420VyhgqcdDziduwmrxuaam and screening for infectious disease (4 sources)Contact with and (suspected) exposure to other viral communicable diseases; Translations: [Exposureto sexually transmissible disorder]Onset: 04-07-2021 Resolved: 09-22-1260YeupcyscEhxmjrp and fatigue (20 sources)Fatigue; Translations: [Chronic fatigue, unspecified]Onset: 010191-09-3938XaoinoxAyvpqhanc disorders (20 sources)Disorder of menstruation; Translations: [Irregular menstruation, unspecified]Onset: 987499-57-4049VpvhswyZhxbfqz (3 sources)Candidal stomatitis; Translations: [Mycosis]Onset: 05-11-2021 Resolved: 58-66-3172SwxkdexxOqljen and vomiting (4 sources)Nausea; Translations: [Nausea]71-58-0716LtsnisguUuxvh bone disease and musculoskeletal deformities (20 sources)Oreland Schlatter disease; 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]Onset: 190910-29-8605FksoxlpDheie circulatory disease (1 source)Postural orthostatic tachycardia ctmmviie62-97-1394YdxppqbuHqabs complications of (1 source)Vomiting of , unspecified; Translations: [Unspecified vomiting of , unspecified as to episode of care or not applicable] 37-51-8043JclrqgckPnnwn gastrointestinal disorders (2 sources)Diarrhea; Translations: [Diarrhea, unspecified]24-37-3900Eihlksef Other gastrointestinal disorders (2 sources)Diarrhea, unspecified; Translations: [Diarrhea]81-45-0291Rxjaildn Other gastrointestinal disorders (1 source)Dysphagia; Translations: [Dysphagia, unspecified]29-88-8247Zzyzdzqg Other gastrointestinal disorders (1 source)Dysphagia, unspecified; Translations: [Dysphagia, unspecified] 98-95-0603KplpujhbVqdrq injuries and conditions due to external causes (1 source)Closed injury of head; Translations: [Unspecified injury of head, initial encounter]EpisodicOther injuries and conditions due to external causes (1 source)Injury of coccyx; Translations: [Unspecified injury of lower back, initial encounter]EpisodicOther injuries and conditions due to external causes (2 sources)Injury of left knee; Translations: [Unspecified injury of left lower leg, initial encounter]49-96-1186PxioxkvjItdwb nutritional; endocrine; and metabolic disorders (20 sources)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 imbalance; Translations: [Other obesity due to excess calories]Onset: 276595-07-7251SgenkfoHiunu nutritional; endocrine; and metabolic disorders (1 source)H/O: kiersfbojadenb67-07-2923YtfiohjoFotav and delivery including normal (20 sources); Translations: [Encounter for supervision of normal , unspecified, unspecified trimester]53-81-3448LsxlpvkoTkjxg screening for suspected conditions (not mental disorders or infectious disease) (8 sources)Encounter for screening for malignant neoplasm of cervix; Translations: [Patient encounter status]Onset: 61-97-0288ZbsqnhvbJeplw upper respiratory infections (9 sources)Streptococcal sore throat; Translations: [Strep throat]Onset: 05-01-2021 Resolved: 70-70-1530HbegcpywUjlvshal codes; unclassified (2 sources)Gestation period, 11 weeks; Translations: [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 ]82-85-5750ZjeuzospWptmtqty codes; unclassified (2 sources)Gestation period, 15 weeks; Translations: [15 weeks gestation of ]15-61-8619DrzaluxeVmjgbemc codes; unclassified (2 sources)Gestation period, 19 weeks; Translations: [19 weeks gestation of ]95-45-1116WxjaerqtTuzhzoob codes; unclassified (2 sources)Gestation period, 23 weeks; Translations: [23 weeks gestation of ]81-54-2112WeschovjMgirkimt codes; unclassified (2 sources)Gestation period, 27 weeks; Translations: [27 weeks gestation of ]42-86-1307KhedjcjpQmodzymf codes; unclassified (2 sources)Gestation period, 29 weeks; Translations: [29 weeks gestation of ]32-76-2767LzztfprlXglgxaiu codes; unclassified (2 sources)Gestation period, 31 weeks; Translations: [31 weeks gestation of ]28-76-3000AjuerrliCupbctct codes; unclassified (2 sources)Gestation period, 33 weeks; Translations: [33 weeks gestation of ]60-53-2415CjjcgcssEtuqdciy codes; unclassified (2 sources)Gestation period, 35 weeks; Translations: [35 weeks gestation of ]54-81-2673YgvnogjcBzbigjgyt-related disorders (20 sources)Cigarette smoker ; Translations: [Nicotine dependence, cigarettes, uncomplicated]Onset: 527753-06-2381BemqrbwWaktqxwqyzb injury; contusion (1 source)Contusion of left knee; Translations: [Contusion of left knee, initial encounter]EpisodicSyncope (2 sources)Syncope; Translations: [Syncope]Onset: 18-84-5410AtjnmwmxKxrrvwv disorders (20 sources)Evan thyroiditis; Translations: [Autoimmune thyroiditis]Onset: 487680-93-5955RxfbbjqOahjphmmxcyr (2 sources)Unknown / UNK(Unknown)Onset: 25-81-6605Hyhaqiyyaifk (2 sources)New Patient; Translations: [New Patient]Onset: 92-99-4967Ejbchadxgkve (2 sources)POTSOnset: 11-27-2024 Past or Other Problems Problem ClassificationProblemDateDocumented DateEpisodic/ChronicChronic obstructive pulmonary disease and bronchiectasis (1 source)Bronchitis, not specified as acute or chronicOnset: 08-21-2021 Resolved: 40-53-9540RjdnmyjiUkrkxkxec (5 sources)Influenza; Translations: [Influenza A]Other circulatory disease (4 sources)Orthostatic hypotension; Translations: [ORTHOSTATIC HYPOTENSION] Onset: 60-95-8454QlasrthsLbusx circulatory disease (20 sources)Low blood pressure; Translations: [Hypotension, unspecified]Onset: 639835-01-7308OkltbhztCtors non-traumatic joint disorders (20 sources)Pain in left knee; Translations: [Pain in joint, lower leg]Onset: 167593-48-1115CizrlpxhVtfay nutritional; endocrine; and metabolic disorders (20 sources)Body mass index 25-29 - overweight; Translations: [Overweight]Onset: 12-10-2022 Resolved: 615536-71-3170EixlynmaQcevgmp cyst (20 sources)Cyst of ovary; Translations: [Unspecified ovarian cyst, unspecified side]Onset: 043525-29-3939Xtvdwvwe Results Test NameValueInterpretationReference RangeFacilityALL THYROID STIM HORMONEon 75-68-7817Vnuhlrxhdopvrr and review of laboratory resultsAbnormalNOSullivan [facility] TSH Qn0.159 m[IU]/LLowNOCT HealthcareCLINISYNCNOMS HealthcareUS OB BPP W NON-STRESSon 89-56-6059[place] [address] Ultrasound Report Signed Patient: ALETA CASTRO MR#: [id number] : 2000 Acct:[id number] Age/Sex: 24 / F ADM Date: 01/23/25 Loc: US Attending Dr: Doc Thomas D.O. Ordering Physician: Doc Thomas D.O. Date of Service: 01/23/25 Procedure(s): US OB BPP w non-stress Accession Number(s): [id number] cc: Doc Thomas D.O.; ROSALIE PAYNE [place] [id number] Patient Name: ALETA CASTRO MRN: [id number] date: 2000 Sex: F Assigned Patient Location: [facility] Current Patient Location: [facility] Accession/Order Number: [id number] Exam Date: 01/23/2025 08:41 Report Date: 01/23/2025 09:25 At the request of: DOC THOMAS DO Procedure: US OB BPP w non-stress US OB BPP w non-stress 01/23/2025 9:01 AM SIGNS AND SYMPTOMS: 02/20/2025 HASHIMOTOS DISEASE E06.2 PROTOCOL: Transabdominal sonographic imaging of the gravid uterus. COMPARISON: 01/20/2025 FINDINGS: Estimated gestational age: 36 weeks 0 days heart rate: 161 bpm. Amniotic fluid index: 15.22 cm with the deepest vertical pocket measuring 7.0 cm. Biophysical profile: breathing movements: 2/2 Gross body movements: 2/2 tone: 2/2 Amniotic fluid volume: 04/19 US/US OB BPP w non-stress IMPRESSION: Biophysical profile: 10/23 Impression dictated by: Emmanuel Dalton M.D. 01/23/2025 9:25 AM Dictation Location: [place] [address] Electronically authenticated by: [id number] Y Date: 01/23/2025 09:25 Dictated By: Emmanuel Dalton M.D. Signed By: 01/23/25927 DD/ 4 TD/TT: Mud Tank Operator:NINAHRadiology, Radiologist, - 01/23/2025 [place] [address] Ultrasound Report Signed Patient: ALETA CASTRO MR#: [id number] : 2000 Acct:[id number] Age/Sex: 24 / F ADM Date: 01/23/25 Loc: US Attending Dr: Doc Thomas D.O. Ordering Physician: Doc Thomas D.O. Date of Service: 01/23/25 Procedure(s): US OB BPP w non-stress Accession Number(s): [id number] cc: Doc Thomas D.O.; ROSALIE PAYNE [place] [address] Patient Name: ALETA CASTRO MRN: [id number] date: 2000 Sex: F Assigned Patient Location: [facility] Current Patient Location: [facility] Accession/Order Number: [id number] Exam Date: 01/23/2025 08:41 Report Date: 01/23/2025 09:25 At the request of: DOC THOMAS DO Procedure: US OB BPP w non-stress US OB BPP w non-stress 01/23/2025 9:01 AM SIGNS AND SYMPTOMS: 02/20/2025 HASHIMOTOS DISEASE E06.2 PROTOCOL: Transabdominal sonographic imaging of the gravid uterus. COMPARISON: 01/20/2025 FINDINGS: Estimated gestational age: 36 weeks 0 days heart rate: 161 bpm. Amniotic fluid index: 15.22 cm with the deepest vertical pocket measuring 7.0 cm. Biophysical profile: breathing movements: 2/2 Gross body movements: 2/2 tone: 2/2 Amniotic fluid volume: 2/2 US/US OB BPP w non-stress IMPRESSION: Biophysical profile: 10/23 Impression dictated by: Emmanuel Dalton M.D. 01/23/2025 9:25 AM [facility]ict[facility] Electronically authenticated by: [id number] Y Date: 01/23/2025 09:25 Dictated By: Emmanuel Dalton M.D. Signed By: 01/23/25927 DD/ 4 TD/TT: Mud Tank Operator: KYE HealthcareRadiology Study observation (narrative)NOMS HealthcareUS OB BPP W NON-STRESSOrdered By: Radiologist Radiology on 97-42-7374EIAL [employer] Work Phone: US OB BPP W NON-STRESSon 13-94-7098Cgg[place] [address] Ultrasound Report Signed Patient: ALETA CASTRO MR#: [id number] : 2000 Acct:[id number] Age/Sex: 24 / F ADM Date: 01/20/25 Loc: [facility] Attending Dr: Doc Thomas D.O. Ordering Physician: Doc Thomas D.O. Date of Service: 01/20/25 Procedure(s): US OB BPP w non-stress Accession Number(s): [id number] cc: Doc Thomas D.O.; ROSALIE PAYNE [place] [id number] Patient Name: ALETA CASTRO MRN: [id number] date: 2000 Sex: F Assigned Patient Location: [facility] Current Patient Location: Accession/Order Number: [id number] Exam Date: 01/20/2025 15:17 Report Date: 01/20/2025 [...] Ellington M.D. 01/20/2025 5:10 PM Dictation Location: [facility] Electronically authenticated by: [id number] Y Date: 01/20/2025 17:10 Dictated By: Loi Ellington D.O. Signed By: 01/20/251712 DD/ 09 TD/TT: Mud Tank Operator:MARTINEadiologkehinde, Radiologist, - 01/20/2025 [place] [address] Ultrasound Report Signed Patient: ALETA CASTRO MR#: [id number] : 2000 Acct:[id number] Age/Sex: 24 / F ADM Date: 01/20/25 Loc: [facility] Attending Dr: Doc Thomas D.O. Ordering Physician: Doc Thomas D.O. Date of Service: 01/20/25 Procedure(s): US OB BPP w non-stress Accession Number(s): [id number] cc: Doc Thomas D.O.; ROSALIE PAYNE [place] [address] Patient Name: ALETA CASTRO MRN: [id number] date: 2000 Sex: F Assigned Patient Location: [facility] Current Patient Location: Accession/Order Number: [id number] Exam Date: 01/20/2025 15:17 Report Date: 01/20/2025 [...] Ellington M.D. 01/20/2025 5:10 PM Dictation Location: [facility] Electronically authenticated by: [id number] Y Date: 01/20/2025 17:10 Dictated By: Loi Ellington D.O. Signed By: 01/20/251712 DD/ 09 TD/TT: Mud Tank Operator: [facility] HealthcareRadiology Study observation (narrative)NOMS HealthcareUS OB BPP W NON-STRESSOrdered By: Radiologist Radiology on 93-71-8205YVHB Healthcare Work Phone: Urinalysis macro (dipstick) panel (U)on 01-20-2025 Bilirubin, UANegativeNegative - 4(70) +++ mg/dLNOMS HealthcareBlood, UANegative Negative - 50 Randall/mcLNOMS HealthcareClarity, UAClearNOMS HealthcareColor, UA YellowNOMS HealthcareGlucose, UATraceNegative - 2000(110) ++++ mg/dLNOMS HealthcareInterpretation and review of laboratory resultsAbnormalNOMS Healthcare Ketones, UANegativeNegative - 160(16) ++++ mg/dLNOMS HealthcareLeukocytes, UA NegativeNegative - 500+++ Rick/mcLNOMS HealthcareNitrite, UANegativeNegative - PositiveNOMS HealthcarepH, UA5.55 - 9NOMS HealthcareProtein, UA1+Negative - 2000(20) ++++ mg/dLNOMS HealthcareSpec Grav, UA1.0301 - 1.03NOMS Healthcare Urobilinogen, UA1.00.2 - 12 mg/dLNOMS HealthcareNOMS HealthcareUS OB BPP W NON-STRESSon 66-99-[address] [address] Ultrasound Report Signed Patient: ALETA CASTRO MR#: [id number] : 2000 Acct:[id number] Age/Sex: 24 / F ADM Date: 01/11/25 Loc: US Attending Dr: Doc Thomas D.O. Ordering Physician: Doc Thomas D.O. Date of Service: 01/11/25 Procedure(s): US OB BPP w non-stress Accession Number(s): [id number] cc: Doc Thomas D.O.; ROSALIE PAYNE [facility] [address] [id number] Patient Name: ALETA CASTRO MRN: [id number] date: 2000 Sex: F Assigned Patient Location: [facility] Current Patient Location: Accession/Order Number: [id number] Exam Date: 01/11/2025 15:03 Report Date: 01/11/2025 [...] Aguilar M.D. 01/11/2025 9:15 PM Dictation Location: [place] [address] Electronically authenticated by: [id number] Y Date: 01/11/2025 21:15 Dictated By: Dsehaun Aguilar M.D. Signed By: 01/11/252117 DD/ 14 TD/TT: Mud Tank Operator:MARTINEadiology, Radiologist, MD - 01/11/2025 [place] [address] Ultrasound Report Signed Patient: ALETA CASTRO MR#: [id number] : 2000 Acct:[id number] Age/Sex: 24 / F ADM Date: 01/11/25 Loc: US Attending Dr: Doc Thomas D.O. Ordering Physician: Doc Thomas D.O. Date of Service: 01/11/25 Procedure(s): US OB BPP w non-stress Accession Number(s): [id number] cc: Doc Thomas D.O.; ROSALIE PAYNE [place] [id number] Patient Name: ALETA CASTRO MRN: [id number] date: 2000 Sex: F Assigned Patient Location: [facility] Current Patient Location: Accession/Order Number: [id number] Exam Date: 01/11/2025 15:03 Report Date: 01/11/2025 [...] Aguilar M.D. 01/11/2025 9:15 PM Dictation Location: [place] [address] Electronically authenticated by: [id number] Y Date: 01/11/2025 21:15 Dictated By: Deshaun Aguilar M.D. Signed By: 01/11/252117 DD/ 14 TD/TT: Mud Tank Operator: KYE HealthcareRadiology Study observation (narrative)NOMS HealthcareUS OB BPP W NON-STRESSOrdered By: Radiologist Radiology on 38-97-6624SGYA Healthcare Work Phone: Urinalysis macro (dipstick) panel [...] mg/dLNOMS HealthcareNOMS HealthcareUS OB BPP W NON-STRESSon 08-77-7518[place] [address] Ultrasound Report Signed Patient: ALETA CASTRO MR#: [id number] : 2000 Acct:[id number] Age/Sex: 24 / F ADM Date: 01/02/25 Loc: US Attending Dr: Doc Thomas D.O. Ordering Physician: Doc Thomas D.O. Date of Service: 01/02/25 Procedure(s): US OB BPP w non-stress Accession Number(s): [id number] cc: Doc Thomas D.O.; ROSALIE PAYNE [place] [id number] Patient Name: ALETA CASTRO MRN: [id number] date: 2000 Sex: F Assigned Patient Location: [facility] Current Patient Location: Accession/Order Number: [id number] Exam Date: 01/02/2025 09:00 Report Date: 01/02/2025 [...] Dalton M.D. 01/02/2025 3:02 PM Dictation Location: [place] [address] Electronically authenticated by: [id number] Y Date: 01/02/2025 15:02 Dictated By: Emmanuel Dalton M.D. Signed By: 01/02/25 1505 DD/ 1502 TD/TT: Mud Tank Operator:TBHRadiology, Radiologist, - 01/02/2025 [place] [address] Ultrasound Report Signed Patient: ALETA CASTRO MR#: [id number] : 2000 Acct:[id number] Age/Sex: 24 / F ADM Date: 01/02/25 Loc: US Attending Dr: Doc Thomas D.O. Ordering Physician: Doc Thomas D.O. Date of Service: 01/02/25 Procedure(s): US OB BPP w non-stress Accession Number(s): [id number] cc: Doc Thmoas D.O.; ROSALIE PAYNE [address] [address] Patient Name: ALETA CASTRO MRN: [id number] date: 2000 Sex: F Assigned Patient Location: [facility] Current Patient Location: Accession/Order Number: [id number] Exam Date: 01/02/2025 09:00 Report Date: 01/02/2025 [...] Dalton M.D. 01/02/2025 3:02 PM Dictation Location: [place] [address] Electronically authenticated by: [id number] Y Date: 01/02/2025 15:02 Dictated By: Emmanuel Dalton M.D. Signed By: 01/02/25 1501 DD/ 150 TD/TT: Mud Tank Operator: KYE HealthcareRadiology Study observation (narrative)NOMS HealthcareUS OB BPP W NON-STRESSOrdered By: Radiologist Radiology on 14-12-8519MAZPSamaritan Hospital Work Phone: aLL THYROID STIM HORMONEon 28-82-8363Nlzyuvmztwpmor and review of laboratory resultsAbnoSelect Specialty Hospital - McKees[facility] Qn0.131 m[IU]/LLow NOMS HealthcareCLINISYNCNOMS HealthcareUS OB BPP W NON-STRESSon 12-26-2024 [place] [address] Ultrasound Report Signed Patient: ALETA CASTRO MR#: [id number] : 2000 Acct:[id number] Age/Sex: 24 / F ADM Date: 12/26/24 Loc: US Attending Dr: Doc Thomas D.O. Ordering Physician: Doc Thomas D.O. Date of Service: 12/26/24 Procedure(s): US OB BPP w non-stress Accession Number(s): [id number] cc: Doc Thomas D.O.; ROSALIE PAYNE [address] [address] Patient Name: ALETA CASTRO MRN: [id number] date: 2000 Sex: F Assigned Patient Location: US Current Patient Location: Accession/Order Number: [id number] Exam Date: 12/26/2024 09:00 Report Date: 12/26/2024 [...] Aguilar M.D. 12/26/2024 11:19 AM Dictation Location: [place] [address] Electronically authenticated by: [id number] Y Date: 12/26/2024 11:19 Dictated By: Deshaun Aguilar M.D. Signed By: 12/26/24 1122 DD/ 1119 TD/TT: Mud Tank Operator:TBHRadiology, Radiologist, MD - 12/26/2024 [place] [address] Ultrasound Report Signed Patient: ALETA CASTRO MR#: [id number] : 2000 Acct:[id number] Age/Sex: 24 / F ADM Date: 12/26/24 Loc: US Attending Dr: Doc Thomas D.O. Ordering Physician: Doc Thomas D.O. Date of Service: 12/26/24 Procedure(s): US OB BPP w non-stress Accession Number(s): [id number] cc: Doc Thomas D.O.; ROSALIE PAYNE The [address] [address] Patient Name: ALETA CASTRO MRN: [id number] date: 2000 Sex: F Assigned Patient Location: US Current Patient Location: Accession/Order Number: [id number] Exam Date: 12/26/2024 09:00 Report Date: 12/26/2024 11:19 At the request of: DOC WILLIAM DO Procedure: US OB BPP w non-stress Ultrasound biophysical profile INDICATION: Evan's disease. COMPARISON: 10/06/2024 FINDINGS: LYNN 12.4 cm. 8/8 score biophysical profile. Fetus is cephalic position with heart rate 152 beats per minutes. US/US OB BPP w non-stress Impression: 8 out of 8 score biophysical profile. Impression dictated by: Deshaun Aguilar M.D. 12/26/2024 11:19 AM Dictation Location: [place] [address] Electronically authenticated by: [id number] Y Date: 12/26/2024 11:19 Dictated By: Deshaun Aguilar M.D. Signed By: 12/26/24 1122 DD/ 1119 TD/TT: Mud Tank Operator: KYE HealthcareRadiology Study observation (narrative)NOMS HealthcareUS OB BPP W NON-STRESSOrdered By: Radiologist Radiology on 71-14-4978QDOM Healthcare Work Phone: US OB GROWTHon [phone] [address] Ultrasound Report Signed Patient: ALETA CASTRO MR#: [id number] : 2000 Acct:[id number] Age/Sex: 24 / F ADM Date: 12/26/24 Loc: US Attending Dr: Doc Thomas D.O. Ordering Physician: Doc Thomas D.O. Date of Service: 12/26/24 Procedure(s): US OB growth Accession Number(s): [id number] cc: Doc Thomas D.O.; ROSALIE PAYNE [place] [id number] Patient Name: ALETA CASTRO MRN: [id number] date: 2000 Sex: F Assigned Patient Location: Current Patient Location: Accession/Order Number: [id number] Exam Date: 12/26/2024 09:00 Report Date: 12/26/2024 11:31 At the request of: DOC THOMAS DO Procedure: US OB growth Obstetric ultrasound for growth INDICATION: Evan's disease FINDINGS: Single live anterior cephalic presentation longitudinal lie. Amniotic fluid index 12.4 cm between the gestational age fifth and 95th percentile. Largest pocket of fluid 5.1 cm. heart rate 1 52 bpm. motion documented by the neon sign mechanic.. Estimated weight 2093 g 71.4%. Gestation age 32 weeks and 0 days. Biparietal diameter 7.93 m. Head circumference 30.7 cm. Otherwise the 10.6 cm. Abdominal circumference 28.9 cm. Femur length 6.4 cm. US/US OB growth IMPRESSION: Single live intrauterine of approximately 30 weeks Impression dictated by: Deshaun Aguilar M.D. 12/26/2024 11:31 AM Dictation Location: [place] [address] Electronically authenticated by: [id number] Y Date: 12/26/2024 11:31 Dictated By: Deshaun Aguilar M.D. Signed By: 12/26/24 1133 DD/ 1131 TD/TT: Mud Tank Operator:TBHRadiology, Radiologist, MD - 12/26/2024 [place] [address] Ultrasound Report Signed Patient: ALETA CASTRO MR#: [id number] : 2000 Acct:[id number] Age/Sex: 24 / F ADM Date: 12/26/24 Loc: Attending Dr: Doc Thomas D.O. Ordering Physician: Doc Thomas D.O. Date of Service: 12/26/24 Procedure(s): US OB growth Accession Number(s): [id number] cc: Doc Thomas D.O.; ROSALIE PAYNE [address] [address] Patient Name: ALETA CASTRO MRN: [id number] date: 2000 Sex: F Assigned Patient Location: Current Patient Location: Accession/Order Number: [id number] Exam Date: 12/26/2024 09:00 Report Date: 12/26/2024 11:31 At the request of: DOC THOMAS DO Procedure: US OB growth Obstetric ultrasound for growth INDICATION: Evan's disease FINDINGS: Single live anterior cephalic presentation longitudinal lie. Amniotic fluid index 12.4 cm between the gestational age fifth and 95th percentile. Largest pocket of fluid 5.1 cm. heart rate 1 52 bpm. motion documented by the neon sign mechanic.. Estimated weight 2093 g 71.4%. Gestation age 32 weeks and 0 days. Biparietal diameter 7.93 m. Head circumference 30.7 cm. Otherwise the 10.6 cm. Abdominal circumference 28.9 cm. Femur length 6.4 cm. US/US OB growth IMPRESSION: Single live intrauterine of approximately 30 weeks Impression dictated by: Deshaun Aguilar M.D. 12/26/2024 11:31 AM Dictation Location: [place] [address] Electronically authenticated by: [id number] Y Date: 12/26/2024 11:31 Dictated By: Deshaun Aguilar M.D. Signed By: 12/26/24 1133 DD/ 1131 TD/TT: Mud Tank Operator: KYE HealthcareRadiology Study observation (narrative)[facility] HealthcareUS OB GROWTHOrdered By: Radiologist Radiology on 39-32-7759JYUWSamaritan Hospital Work Phone: Urinalysis macro (dipstick) panel (U)on 12-23-2024 Bilirubin, UANegativeNegative - 4(70) +++ mg/dLNOMS HealthcareBlood, UANegative Negative - 50 Randall/mcLNOMS HealthcareClarity, UAClearNOMS HealthcareColor, UA YellowNOMS HealthcareGlucose, UA1+Negative - 2000(110) ++++ mg/dLNOCT Healthcare Interpretation and review of laboratory resultsAbnormalNOCT HealthcareKetones, UANegativeNegative - 160(16) ++++ mg/dLNOMS HealthcareLeukocytes, UATrace Negative - 500+++ Rick/mcLNOMS HealthcareNitrite, UANegativeNegative - Positive NOMS HealthcarepH, UA65 - 9NOMS HealthcareProtein, UANegativeNegative - 2000(20) ++++ mg/dLNOMS HealthcareSpec Grav, UA1.0151 - 1.03NOMS HealthcareUrobilinogen, UA2.00.2 - 12 mg/dLNOMS HealthcareNOMS HealthcareUrinalysis macro (dipstick) panel (U)on 16-80-0201Ftxkrhjew, UANegativeNegative - 4(70) +++ mg/dLNOMS HealthcareBlood, UANegativeNegative [...] UA0.20.2 - 12 mg/dLNOMS HealthcareNOMS HealthcareOffice Visiton 81-82-3202Rrrnxe-up visit [id number] Aleta Castro 2000 F Date Provider Department Center 11/27/2024 95884-GZYMQWLESA SINGH TRES [facility] Family History Family Status - Relation Status Age at Mother Alive Father Alive Level of Service:07642 CT OFFICE/OUTPATIENT NEW LOW MDM 30 MINUTES Reason for Visit and Comments: New Patient [632] - New patient here today to establish care with cardiology Syncope [506] POTS [Other] Positive tilt table [Other] 6 months [Other]NormalUnGrand Lake Joint Township District Memorial HospitalUrinalysis macro (dipstick) panel (U)on 80-95-8164Ykxawmjup, UAPositiveNegative - 4(70) +++ mg/dLNOMS HealthcareComment on above:1+Blood, UANegativeNegative - 50 Randall/mcL NOMS HealthcareClarity, UAClearNOMS HealthcareColor, UAYellowNOMS Healthcare Glucose, UAPositiveNegative - 1999(110) ++++ mg/dLNOMS HealthcareComment on above:TraceInterpretation and review of laboratory resultsAbnormalNOMS HealthcareKetones, UANegativeNegative - 160(16) ++++ mg/dLNOMS Healthcare Leukocytes, UANegativeNegative - 500+++ Rick/mcLNOMS HealthcareNitrite, UA NegativeNegative - PositiveNOMS HealthcarepH, UA65 - 9NOMS HealthcareProtein, UA PositiveNegative - 2000(20) ++++ mg/dLNOMS HealthcareComment on above:TraceSpec Grav, UA1.031 - 1.03NOMS HealthcareUrobilinogen, UA0.20.2 - 12 mg/dLNOMS HealthcareNOMS HealthcareCA ECHO DOPPLER COMPLETEon 35-67-3916[place]ml[place] [address] Cardiology Report Signed Patient: ALETA CASTRO MR#: [id number] : 2000 Acct:[id number] Age/Sex: 24 / F ADM Date: 11/12/24 Loc: CARD Attending Dr: Luna Steen Ordering Physician: Luna Steen Date of Service: 11/12/24 Procedure(s): CA echo doppler complete Accession Number(s): [id number] cc: Luna Steen; ROSALIE PAYNE Patient Name: ALETA CASTRO MR#: [id number] : 2000 Exam Date: 11/12/2024 Ordering Doctor: LUNA STEEN [facility] ECHOCARDIOGRAM REPORT PROCEDURE: CA ECHO DOPPLER COMPLETE [...] not included)...TBHRadiology, Radiologist, MD - 11/24/2024 [place] [address] Cardiology Report Signed Patient: ALETA CASTRO MR#: [id number] : 2000 Acct:[id number] Age/Sex: 24 / F ADM Date: 11/12/24 Loc: CARD Attending Dr: Luna Steen Ordering Physician: Luna Steen Date of Service: 11/12/24 Procedure(s): CA echo doppler complete Accession Number(s): [id number] cc: Luna Steen; ROSALIE PAYNE Patient Name: ALETA CASTRO MR#: [id number] : 2000 Exam Date: 11/12/2024 Ordering Doctor: LUNA STEEN [facility] ECHOCARDIOGRAM REPORT PROCEDURE: CA ECHO DOPPLER COMPLETE [...] Signed By: 11/24/24 1640 DD/ 1639 TD/TT: Mud Tank Operator: KYE [facility] MemorialRadiology Study observation (narrative)Samaritan HospitalCA ECHO DOPPLER COMPLETEOrdered By: Radiologist Radiology on 21-85-5896R[facility] Work Phone: ecg 12-LEADon 63-46-1376[place]kb[place] [address] Electrocardiograph Report Signed Patient: ALETA CASTRO MR#: [id number] : 2000 Acct:[id number] Age/Sex: 24 / F ADM Date: 11/12/24 Loc: CARD Attending Dr: Luna Steen Ordering Physician: Luna Steen Date of Service: 11/12/24 Procedure(s): ECG 12 lead Accession Number(s): [id number] cc: [facility] Test Date: 2024-11-12 Pat Name: ALETA CASTRO Department: Room: - Gender: Female Multimedia Project Manager: : 2000 Requested By: LUNA STEEN Order Number: [id number] Reading : Lesa Singh Measurements Intervals [place] Rate: 79 P: 42 CT: 158 QRS: 81 QRSD: 90 T: 41 QT: 353 QTc: 405 Interpretive Statements SINUS RHYTHM Normal EKG No previous ECG available for comparison Electronically Signed On 11-13-2024 13:34:21 EDT by Lesa Singh Dictated By: Lesa Singh M.D. Signed By: 11/13/24133311/13/241333 DD/ 1206 TD/TT: Mud Tank Operator:MARTINEadiologSelena busby, - 11/13/2024 [place] [address] Electrocardiograph Report Signed Patient: ALTEA CASTRO MR#: [id number] : 2000 Acct:[id number] Age/Sex: 24 / F ADM Date: 11/12/24 Loc: CARD Attending Dr: Luna Steen Ordering Physician: Luna Steen Date of Service: 11/12/24 Procedure(s): ECG 12 lead Accession Number(s): [id number] cc: [facility] Test Date: 2024-11-12 Pat Name: ALETA CASTRO Department: Room: - Gender: Female Multimedia Project Manager: : 2000 Requested By: LUNA STEEN Order Number: [id number] Reading : Lesa Singh Measurements Intervals [place] Rate: 79 P: 42 CT: 158 QRS: 81 QRSD: 90 T: 41 QT: 353 QTc: 405 Interpretive Statements SINUS RHYTHM Normal EKG No previous ECG available for comparison Electronically Signed On 11-13-2024 13:34:21 EDT by Lesa Singh Dictated By: Lesa Singh M.D. Signed By: 11/13/24133311/13/24 133 DD/ 1206 TD/TT: Mud Tank Operator: KYE Garay 12-LEADOrdered By: Radiologist Radiology on 39-63-9161KPWW [employer] Work Phone: ECG 12-LEADon 01-10-5974Fcfszmeqy Study observation (narrative)NOMS HealthcareALL CBC WITH AUTO DIFFon 17-74-6174SINQDYFKX ABSOLUTE TUSY0RMIF HealthcareBasophils/100 WBC (Bld)0.2 %0.2 - 2.0 %[facility] Healthcare Eosinophils/100 WBC (Bld)0.5 %Low0.9 - 7.0 %NOMS HealthcareErythrocyte distribution width (RBC) [Ratio]12.7 %11.0 - 15.0 %NOMS HealthcareHematocrit (Bld) [Volume fraction]31.2 %Low36.0 - 48.0 %NOM HealthcareHemoglobin (Bld) [Mass/Vol]10.8 g/dLLow12.0 - 16.0 g/dLNOCT HealthcareIMMATURE GRANULOCYTES ABS AUTO0.01NOMS HealthcareImmature granulocytes/100 WBC (Bld)0.2 %0.0 - 0.5 %NOM HealthcareInterpretation and review of laboratory resultsAbnormalNOCT Healthcare LYMPHOCYTES ABSOLUTE JCNZ2MusZQSG HealthcareLymphocytes/100 WBC (Bld)15 %Low20.5 - 60.0 %Samaritan HospitalMCH (RBC) [Entitic mass]32.3 pg26.7 - 34.0 pgNOSullivan County Memorial HospitalMCHC (RBC) [Mass/Vol]34.6 g/dL29.9 - 35.2 g/dLNOSullivan County Memorial HospitalMCV (RBC) [Entitic vol]93.4 fL81.0 - 99.0 fLNOCT HealthcareMONOCYTES ABSOLUTE AUTO0.5NOMS HealthcareMonocytes/100 WBC (Bld)7.7 %1.7 - 12.0 %NOMS HealthcareNEUTROPHILS ABSOLUTE OHVG5IDPX HealthcareNeutrophils/100 WBC (Bld)76.4 %High43.0 - 75.0 % NOM HealthcarePlatelet mean volume (Bld) [Entitic vol]9.7 fL9.5 - 13.5 fLNOCT HealthcareTBH EO #0NOMS HealthcareTBH UHY009BUXM HealthcareTB RBC3.34LowNOMS HealthcareTBH WBC6.6NOMS HealthcareCLINISYNCNOMS HealthcareIGP,APTIMA HPV,AGE GDLNon 00-15-7969JMV GDLN ACOG TESTINGNote.[facility] HealthcareComment on above:TESTS RESULT FLAG UNITS REF RANGE LAB Clinician Provided Cytology Information Source.............Endocervix No. of containers..01 ThinPrep Vial Age Ernieo CESAR Yaa... FLAG LEGEND: L-Low Normal,H-High Normal,LL-Alert Low,HH-Alert High <-Panic Low,>-Panic High,A-Abnormal,AA-Critical Abnormal Performed at: 01 =G [address] [address] Ludy Hector MD, IGP, RFX APTIMA HPV ASCUNote.[facility] HealthcareComment on above:TESTS RESULT FLAG UNITS REF RANGE LAB DIAGNOSIS: 02 NEGATIVE FOR INTRAEPITHELIAL LESION OR MALIGNANCY. THIS SPECIMEN WAS RESCREENED PART OF OUR CAPACITOR ASSEMBLER PROGRAM. Specimen adequacy: 02 Satisfactory for evaluation. No endocervical component is identified. Performed by: 02 Brionna Mello Carbon Sequestration Plant Operator ([facility]) QC reviewed by: 02 Polina Simons Carbon Sequestration Plant Operator . 02 Note: Note 02 The [...] <-Panic Low,>-Panic High,A-Abnormal,AA-Critical Abnormal Performed at: [address] [address] Ludy Hector MD, Performed at: = - [facility] [id number] Records Specialist: Ludy Hector MD, Phone: [phone] Performed at: [facility] [address] [id number] Records Specialist: Ludy Hector MD, Phone: [phone] BRUSH-SPATULA ENDOCERVIX CLINISYNCNOMS HealthcareRECURRENT VAGINITIS (HTRX)on 50-61-8910EEOBBVETK VAGINAE 0NOMS HealthcareATOPOBIUM VAGINAENot detectedNOMS HealthcareBVAB 2,3 (BACTERIAL VAGINOSIS ASSOCIATED BACTERIA 2, 3); MOBILUNCUS HAB4FGLX HealthcareBVAB 2,3 (BACTERIAL VAGINOSIS ASSOCIATED BACTERIA 2, 3); MOBILUNCUS SPPNot detectedNOMS HealthcareCANDIDA ALBICANS, PARAPSILOSIS, GDXEFTQEUY9YZQL HealthcareCANDIDA ALBICANS, PARAPSILOSIS, TROPICALISNot detectedNOMS HealthcareCANDIDA GLABRATA0 NOMS HealthcareCANDIDA GLABRATANot detectedNOMS HealthcareCANDIDA AWLJWS6ISVB HealthcareCANDIDA KRUSEINot detectedNOMS HealthcareCHLAMYDIA HFNDQSXOFAW7STIV HealthcareCHLAMYDIA TRACHOMATISNot detectedNOMS HealthcareGARDNERELLA VAGINALIS0 NOMS HealthcareGARDNERELLA VAGINALISNot detectedNOMS HealthcareMEGASPHAERA (TYPES 1, 2)0NOMS HealthcareMEGASPHAERA (TYPES 1, 2)Not detectedNOMS Healthcare MYCOPLASMA SDFBTVKRYC0XBNM HealthcareMYCOPLASMA GENITALIUMNot detectedNOMS HealthcareNEISSERIA MZJIHWTWPYE9MTZB HealthcareNEISSERIA GONORRHOEAENot detected NOMS HealthcareTRICHOMONAS SEZTBFYMP4IJIY HealthcareTRICHOMONAS VAGINALISNot detectedNOMS HealthcareNOMS HealthcareUrinalysis macro (dipstick) panel (U)on 14-52-9849Nmqjzyzfx, UAPositiveNegative - 4(70) +++ mg/dLNOMS HealthcareBlood, UANegativeNegative [...] 12 mg/dLNOMS HealthcareNOMS HealthcareUS OB CERVICAL LENGTHon 32-59-[address] [address] Ultrasound Report Signed Patient: ALETA CASTRO MR#: [id number] : 2000 Acct:[id number] Age/Sex: 24 / F ADM Date: 10/06/24 Loc: US Attending Dr: Doc Thomas D.O. Ordering Physician: Doc Thomas D.O. Date of Service: 10/06/24 Procedure(s): US OB cervical length Accession Number(s): [id number] cc: Doc Thomas D.O.; ROSALIE PAYNE [place] [address] Patient Name: ALETA CASTRO MRN: [facility]:[id number] date: 2000 Sex: F Assigned Patient Location: US Current Patient Location: US Accession/Order Number: [id number] Exam Date: 10/06/2024 14:25 Report Date: 10/06/2024 [...] Jr., D.O. 10/06/2024 2:26 PM Dictation Location: [place] [address] Electronically authenticated by: [id number] Y Date: 10/06/2024 14:26 Dictated By: Jermaine Nguyễn M.D. Signed By: 10/06/24 1428 DD/ 1426 TD/TT: Mud Tank Operator:NINAHRadiology, Radiologist, MD - 10/06/2024 [place] [address] Ultrasound Report Signed Patient: ALETA CASTRO MR#: [id number] : 2000 Acct:[id number] Age/Sex: 24 / F ADM Date: 10/06/24 Loc: US Attending Dr: Doc Thomas D.O. Ordering Physician: Doc Thomas D.O. Date of Service: 10/06/24 Procedure(s): US OB cervical length Accession Number(s): [id number] cc: Doc Thomas D.O.; ROSALIE PAYNE [place] [id number] Patient Name: ALETA CASTRO MRN: TBH:[id number] date: 2000 Sex: F Assigned Patient Location: US Current Patient Location: US Accession/Order Number: [id number] Exam Date: 10/06/2024 14:25 Report Date: 10/06/2024 [...] Jr., D.O. 10/06/2024 2:26 PM Dictation Location: [place] [address] Electronically authenticated by: [id number] Y Date: 10/06/2024 14:26 Dictated By: Jermaine Nguyễn M.D. Signed By: 10/06/24 1428 DD/ 25 TD/TT: Mud Tank Operator: KYE [facility] MemorialRadiology Study observation (narrative)[facility] OB CERVICAL LENGTHOrdered By: Radiologist Radiology on 29-28-8884WRUC [employer] Work Phone: US OB 14+ WEEKS ANATOMY SCANon 34-74-6866SZ OB 14+ WEEKS ANATOMY SCANFINDINGS: A single, [...] menstrual period. TRANSCRIBED BY: ELECTRONICALLY SIGNED BY: Aydee Red AvailableComment on above:Order Comment: US OB ANATOMY SINGLE W US OB CERVICAL LENGTH Estimated Date of Delivery: 02/20/25 Gestational Age as of 09/02/2024: 44g3kHpxdzsfema macro (dipstick) panel (U)on 26-34-0472Qeysskcnv, UANegativeNegative - 4(70) +++ mg/dLNOMS HealthcareBlood, UANegativeNegative [...] mg/dLNOMS HealthcareNOMS Healthcare ALL THYROID STIM HORMONEon 10-40-2011ZCO Qn0.836 m[IU]/LNOMS HealthcareCLINISYNC NOMS HealthcareUrinalysis macro (dipstick) panel (U)on 20-33-7771Xfnbdtjgh, UA NegativeNegative - 4(70) +++ mg/dLNOMS HealthcareBlood, [...] 12 mg/dLNOMS HealthcareNOMS HealthcareALL THYROID STIM HORMONEon 66-14-6978AFZ Qn1.413 m[IU]/LNOMS HealthcareCLINISYNCNOMS HealthcareUrinalysis macro (dipstick) panel (U)on 86-22-9438Fxapmuqzr, UANegativeNegative - 4(70) +++ mg/dLNOMS HealthcareBlood, UANegativeNegative [...] UA1.00.2 - 12 mg/dLNOMS HealthcareNOMS HealthcareBOX TESTon 97-80-9392AYU TEST SENT OUTUNITY NOMS FmsghxapttTZY0CQSWUXSAS NqxfbevquxQFJ50/3/25NOCT HealthcareUNAVITA HEALTH SYSTEM CLINISYNCNOMS HealthcareTBH DRUG SCREEN RAPID (URINE)on 73-75-5309SZMITGCYXWG SCREEN URINENegativeNEGATIVENOMS HealthcareBARBITURATES SCREEN URINENegative NEGATIVENOMS HealthcareBENZODIAZEPINES [...] URINENegativeNEGATIVENOMS HealthcareCLINISYNCNOMS HealthcareHCG ( test) Ql (U)on 30-05-5143Zekmdqraikmdjf and review of laboratory resultsAbnormalNOMS HealthcarePreg Test, UrPositiveNegativeNOMS HealthcareNOMS HealthcareUS OB TRANSVAGINALon 23-51-0480WU OB TRANSVAGINALEXAM: US OB TRANSVAGINAL HISTORY: Dating. [...] II, MD, PHD at 19-Jul-2024 08:55:15 PM [facility] TeleradiologyNormalNot AvailableComment on above:Order Comment: US OB TRANSVAGINAL No LMP recorded.Urinalysis macro (dipstick) panel (U)on 99-12-6406Atjddkzih, UA NegativeNegative - 4(70) +++ mg/dLNOMS HealthcareBlood, UANegativeNegative - 50 Randall/mcLNOMS HealthcareClarity, UAClearNOMS HealthcareColor, UAYellowNOMS HealthcareGlucose, UANegativeNegative - 2000(110) ++++ mg/dLNOMS Healthcare Interpretation and review of laboratory resultsNormalNOCT HealthcareKetones, UA NegativeNegative - 160(16) ++++ mg/dLNOMS HealthcareLeukocytes, UANegative Negative - 500+++ Rick/mcLNOMS HealthcareNitrite, UANegativeNegative - Positive NOMS HealthcarepH, UA6.55 - 9NOMS HealthcareProtein, UANegativeNegative - 2000(20) ++++ mg/dLNOMS HealthcareSpec Grav, UA1.021 - 1.03NOMS Healthcare Urobilinogen, UA1.00.2 - 12 mg/dLNOMS HealthcareNOMS HealthcareCBC W Auto Differential panel (Bld)on 21-00-7008Nhjh form neutrophils (Bld) [#/Vol]CANCELED NOMS HealthcareComment on above:Result canceled by the ancillary.Band form neutrophils/100 WBC (Bld)CANCELED%NOMS HealthcareComment on above:Result canceled by the ancillary.Basophils (Bld) [#/Vol]19 10*3/uLNOMS Healthcare Basophils/100 WBC (Bld)0.4 %NOM HealthcareBlasts (Bld) [#/Vol]CANCELED0 cells/uLNOMS HealthcareComment on above:Result canceled by the ancillary. Blasts/100 WBC (Bld)CANCELED%NOMS HealthcareComment on above:Result canceled by the ancillary.Eosinophils (Bld) [#/Vol]91 10*3/uLNOMS HealthcareEosinophils/100 WBC (Bld)1.9 %[facility] HealthcareErythrocyte distribution width (RBC) [Ratio]12.5 % 11.0 - 15.0 %NOM HealthcareHematocrit (Bld) [Volume fraction]38.9 %35.0 - 45.0 %[facility] HealthcareHemoglobin (Bld) [Mass/Vol]12.8 g/dL11.7 - 15.5 g/dLSamaritan HospitalLymphocytes (Bld) [#/Vol]1282 10*3/uLNOMS HealthcareLymphocytes/100 WBC (Bld)26.7 %[facility] HospitalH (RBC) [Entitic mass]30.6 pg27.0 - 33.0 pgSaint Louis University HospitalHC (RBC) [Mass/Vol]32.9 g/dL32.0 - 36.0 g/dLNOCT HealthcareComment on above:For adults, a slight decrease in the calculated MCHC value (in the range of 30 to 32 g/dL) is most likely not clinically significant; however, it should be interpreted with caution in correlation with other red cell parameters and the patient's clinical condition. MCV (RBC) [Entitic vol]93.1 fL80.0 - 100.0 fLUINTAH BASIN MEDICAL CENTER HealthcareMetamyelocytes (Bld) [#/Vol]CANCELED0 cells/uLNOMS HealthcareComment on above:Result [...] the ancillary.Nucleated RBC/100 WBC (Bld) [Ratio]CANCELED0 /100 WBCNOCT Healthcare Comment on above:Result canceled by the [...] NOMS HealthcareIron and Iron binding capacity panelon 64-58-2891Tqyf [Mass/Vol] 101 ug/dLNOCT HealthcareIron binding capacity [Mass/Vol]340N[facility] HealthcareIron saturation [Mass fraction]30[facility] HealthcareLaboratory - Chemistry and Chemistry - challengeon [id number] [Mass/Vol]4.8 g/dL3.6 - 5.1 g/dLNOCT Healthcare Albumin/Globulin [...] (S/P/Bld) [Vol rate/Area]122 mL/min/{1.73_m2}> OR = 60 mL/min/1.38v9MQEI HealthcareGlobulin (S) [Mass/Vol]2.6 g/dLNOMS HealthcareGlucose [Mass/Vol]95 mg/dL65 - 99 mg/dLNOCT HealthcareComment on above: Fasting reference interval Potassium [Moles/Vol]4.2 mmol/L3.5 - 5.3 mmol/LNOMS HealthcareProtein [Mass/Vol] 7.4 g/dL6.1 - 8.1 g/dLNOMS HealthcareSodium [Moles/Vol]139 mmol/L135 - 146 mmol/LNOMS HealthcareUrea nitrogen [Mass/Vol]16 mg/dL7 - 25 mg/dLNOMS Healthcare Urea nitrogen/Creatinine [Mass ratio]SEE NOTE:NOMS HealthcareComment on above: Not Reported: BUN and Creatinine are within reference range. Laboratory - Serology - non-microon 98-69-5033Wtveblpcmeime Ab Qn153 [IU]/mLHigh < or = 1 IU/mLNOMS HealthcareTPO Ab Qn27 [IU]/mLHighNIBaptist Memorial Hospital Information 39-71-2783Iarjckifiazcmb and review of laboratory resultsAbnormal [facility] Organization Information Site ID: QTW Name: [facility] Address: [address] [place] [id number] Director: Urvashi [facility]aborAsc[facility] Organization Information Site ID: QPT Name: [facility] Address: [address] [facility], [address] [place] [address] Director: Yonis Beck MD[address] [id number] T3 [Mass/Vol] 3.6 pg/mLNormal2.3-4.2Quest DiagnosticsComment on above:Performed By: #### 589, 02133, 866 #### [facility] [place] [address] Welding Machine Operator Thermit: Yonis Beck MDT, [facility] 23-24-9588Mqph T4 [Mass/Vol]1.1 ng/dLNormal0.8-1.8Quest DiagnosticsComment on above:Order Comment: FASTING:NO FASTING: NOPerformed By: #### 069, 09536, 866 #### [facility] [place] [address] Welding Machine Operator Thermit: Yonis Mari 53-66-3279MGT Qn1.98 m[IU]/LNormalQuest DiagnosticsComment on above:Result Comment: Reference Range > or = 20 Years 0.40-4.50 Ranges First trimester 0.26-2.66 Second trimester 0.55-2.73 Third trimester 0.43-2.91Performed By: #### 749, 26001, 866 #### [facility] [place] [address] Welding Machine Operator Thermit: Yonis WOLF ( test) IA.rapid Ql (U)Ordered By: Marcelle Espinosa on 70-28-1664NXI ( test) Ql (U)NegativeLima Memorial HospitalHCG,Urineon 43-54-1431Nshv HCG ( test) Ql (U) NegativeNoNovant Health Medical Park Hospital Physician GroupComment on above:Result Comment: PERFORMED BY: [place] [address] PATHOLOGIST THIRD MILLER RAYMOND SUERO M.D.Performed By: #### [facility] #### [place] [address] USALon 21-51-5079MXzszndnv: [id number] Received: 09/03/23 Status: FRANKLYN Gonzales Num: [id number] Spec Type: Surgical Subm Dr: Marcelle Espinosa [...] Location Account Attending Physician Aleta Castro / [id number] Marcelle Espinosa DO SPEC NUM: [id number] RECD: 09/03/23 STATUS: FRANKLYN GONZALES NUM: [id number] MIRIAM: 09/02/23- SUBM DR: Marcelle Espinosa DO ENTERED: 09/03/23 [facility] DR: SPEC TYPE: Surgical DEPT: [...] mild squamous acanthosis and occasionally associated Specimen: [id number] Received: 09/03/23 Status: FRANKLYN Bradshawcharley Num: [id number] Spec Type: Surgical Subm Dr: Marcelle Espinosa, Tissues: A Small Intestine - Biopsy/Polyp (SMALL BOWEL BX) B GASTRIC FOR HP (GASTRIC HP) C Esophagus Biopsy (DISTAL ESOPHAGUS) D Esophagus Biopsy (PROXIMAL ESOPHAGUS) E Colon Biopsy (RANDOM RT COLON) F Colon Biopsy (RANDOM LT COLON) Procedures: HE/12, Gross/Micro L4/6, H PYLORI, IHC First AB Patient: Aleta Castro N [id number] (Continued) Specimen: [id number] Received: 09/03/23 (Continued) Pathological Diagnosis (Continued) Signed (signature on file) Heather Villegas MD 09/05/23 1417 Specimen: [id number] Received: 09/03/23 Status: FRANKLYN Gonzales Num: [id number] Spec Type: Surgical Subm Dr: Marcelle Espinosa DO Tissues: A Small Intestine - Biopsy/Polyp (SMALL BOWEL BX) B GASTRIC FOR HP (GASTRIC HP) C Esophagus Biopsy (DISTAL ESOPHAGUS) D Esophagus Biopsy (PROXIMAL ESOPHAGUS) E Colon Biopsy (RANDOM RT COLON) F Colon Biopsy (RANDOM LT COLON) Procedures: HE/12, Gross/Micro L4/6, H PYLORI, IHC First AB Patient: Aleta Castro N [id number] (Continued) Specimen: [id number] Received: 09/03/23 (Continued) Pathological Diagnosis (Continued) lymphocytic [...] entirely submitted (more content not included)...[facility] Physician GroupInsurance Correspondence Officeon 69-60-4827Hsdamhklk Correspondence [id number]#1.00TIFFNoFostoria City HospitalIntraOperative Documentson 17-28-0570GiudgZhrtnoole [id number]#1.00TIFSt. Charles HospitalPostoperative Documentson 40-36-9547Plhsjegwjjshw Documents [id number]#1.00TIFSt. Charles HospitalMain OR Intraoperative Recordon 03-47-7922Xwez OR Intraoperative Record IntraOp Document Type FT Summary Primary Physician: Myron Marroquin DO Finalized Date/Time: 04/25/23 09:04:33 Pt. Name: ALETA CASTRO/Sex: 2000 Female Med Rec #: [id number] Physician: Myron Marroquin DO Financial #: [id number] Pt. Type: A Room/Bed: [facility]/ Admit/Disch: 04/23/23 06:25:15 - 04/23/23 14:50:00 Institution: [...] assist with the block. Patient's heartrate 89, zc23-936% on room air. patient tolerated block well. [...] Haas Role Performed Anesthesiologist Surgeon - Primary Bull Wheel Worker - Primary Police And Fire Dispatcher Time In 04/23/23 08:50:00 04/23/23 09:15:00 04/23/23 08:50:00 Time Out 04/23/23 10:59:00 04/23/23 10:44:00 04/23/23 10:59:00 Procedure KNEE ARTHROSCOPY W/ ACL KNEE ARTHROSCOPY W/ ACL KNEE ARTHROSCOPY W/ ACL REPAIR(Left) REPAIR(Left) REPAIR(Left) Comments , anesthesia supervisor mold yard Last Modified By: Souleymane RN, Lyle Comer RN, Lyle Comer RNLyle 04/23/23 10:59:32 04/23/23 10:59:32 04/23/23 10:59:32 Entry 4 Entry 5 Entry 6 Case Attendee Regulo Rodgers Laura C Wilhelm CST, Benjamin Role Performed Staff - Other Scrub - Primary SCOURING TRAIN OPERATOR CHIEF/SA Time In 04/23/23 08:50:00 04/23/23 08:50:00 04/23/23 [...] Time Out [address], Given Participants Pocos Myron LEACH Krupp RN, Ana Maria Bennett Kendall R, [...] FT Pre-Care Text: Implements (more content not included)...[facility] Consent for Anesthesiaon 12-14-2829Rdpnvwf for Anesthesia [id number]#1.00TIFSt. Charles HospitalDischarge Instructionson 27-90-8822Qspgblgto Instructions [id number]#1.00[facility] Southeast OhioIntraOperative Documentson 59-89-0494DuditTgmwecxmx Documents [id number]#1.00[facility] Southeast OhioOperative Reporton 89-38-2020Aokgzsida ReportSURGERY DATE: 04/23/2023 VISCOSITY TESTER: Garry Camacho CST PREOPERATIVE DIAGNOSIS: Left knee anterior cruciate ligament tear POSTOPERATIVE DIAGNOSIS: Left knee anterior cruciate ligament tear OPERATION: Left knee diagnostic operative arthroscopy with autograft vdsv-sqpafx-oicf anterior cruciate ligament reconstruction with InternalBrace augmentation ANESTHESIA: General as well as regional block ANESTHESIOLOGIST: KARTHIKEYAN Peacock ESTIMATED BLOOD LOSS: 10 mL INTRAVENOUS FLUIDS: Please see the operative record SPECIMEN: None COMPLICATIONS: None IMPLANTS: Arthrex vhxx-iixksp-sdhj Tightrope system with the button for the [...] The anterior cruciate ligament was reconstructed using mnjd-avxiji-eokh from patellar tendon autograft with this InternalBrace [...] over reaming with a 10 mm barrel lathe operator inside. Excess bone debris is again removed. The [...] tensioned on the femo (more content not included)...[facility] Medical CenterComment on above:Result Comment: Electronically Signed By: Myron Marroquin DO\.ammy\Date and Time Signed: 04/24/23 07:15 ESTPreoperative Documentson 34-83-5494Qtmyjegezilk Documents [id number]#1.00TIFFNormalOhiohealth Grant Medical CenterConsent for Procedure/Surgeryon 49-06-3661Fbtnmok for Procedure/Surgery [id number]#1.00[facility] OhioConsent for Treatmenton 42-58-2555Qfroeow for Treatment [id number]#1.00[facility] OhioDischarge Instructionson 83-77-8272Lzcegbcwc Instructions ALETA CASTRO :2000 Visit Date:04/23/2023 Inpatient [...] been scheduled. Call for any problems. Where: [address] [place] [address] [place] (1) Medications What How Much When Instructions Next Dose New acetaminophen-oxycodone (Percocet 5 mg-325 mg oral tablet) 1 Tablets By Mouth As Directed 1-2 po Q4-6h prn pain Dx: S83.512D Duration: 7 days Pickup at [facility]/pharmacy #2345 New aspirin (Ecotrin 325 mg Tab-EC) 1 Tablets By Mouth Every day Pickup at [facility]/pharmacy #2345 Pharmacy Information [facility]/pharmacy #2345: [address], [place] [phone] Allergies Banana (Throat tightness, Hives, Vomiting) Latex (Hives, Swelling) azithromycin (Hives) midodrine (Numbness) Education Materials [place], [place] [facility] DISCHARGE INSTRUCTIONS: ANTERIOR CRUCIATE [...] any concerns. Myron Marroquin, DO [facility] [address] [place] [address] Reviewed: 06-23 Revised: 03/29 Common Emergency Awareness Tips IS IT A STROKE? Act FAST and Check for these signs: FACE Does the face look uneven? ARM Does one arm drift down? SPEECH Does their speech sound strange? TIME Call 9-1-1 at any sign of stroke Heart Attack [...] please share your experie (more content not included)...The Surgical Hospital At SouthwoodsComment on above:Result Comment: Electronically Signed By: Marcelo MCQUEEN, Shyla Acevedo\.br\Date and Time Signed: 04/23/23 10:58 ESTH&P Updateon 04-23-2023H&P [id number]#1.00TIFF [facility] CenterMain OR PACU I Recordon 22-51-4515Igld OR PACU I RecordPACU Phase I Document Type FT Summary Primary Physician: Myron Marroquin DO Finalized Date/Time: 04/23/23 12:22:33 Pt. Name: ALETA CASTRO/Sex: 2000 Female Med Rec #: [id number] Physician: Myron Marroquin DO Financial #: [id number] Pt. Type: A Room/Bed: [place] [address] Admit/Disch: 04/23/23 06:25:15 - Institution: Case Times [...] Signatures Signed By: Valencia Jimenez RN 04/23/23 12:22[facility] CenterMain OR Preoperative Recordon 82-97-8434Dhao OR Preoperative RecordPreOp Document Type FT Summary Primary Physician: Myron Marroquin DO Finalized Date/Time: 04/23/23 08:50:41 Pt. Name: ALETA CASTRO/Sex: 2000 Female Med Rec #: [id number] Physician: Myron Marroquin DO Financial #: [id number] Pt. Type: A Room/Bed: [facility]/ Admit/Disch: 04/23/23 06:25:15 - Institution: Case [...] Signatures Signed By: Lyle Comer RN 04/23/23 08:50NoOur Lady of Mercy Hospital - AndersonMonitor Record on 51-01-3953Jauitqg [id number]#1.00TIFF [facility] Medical CenterOperative Reporton 89-46-7619Xawdmguay Report Patient: ALETA CASTRO Age: 22 years [...] per current [facility] guidelines including hand hygeine, Guidance (Ultrasound used [...] The patient tolerated the procedure as expected.Normal [facility] Medical CenterComment on above:Result Comment: Electronically Signed By: [facility] (), Cyrus Zepeda.br\Date and Time Signed: 04/23/23 07:56 ESTPatient Education - Texton 33-50-2889Umexswu Education - Text [place], [place] [facility] DISCHARGE INSTRUCTIONS: ANTERIOR CRUCIATE [...] any concerns. Myron Marroquin DO [facility] [address] [place] [address] Reviewed: 06-23 Revised: 03/29[facility] Medical CenterProcox walnut lawn Note-Physicianon 52-62-8665Swrchyoy Note-PhysicianPatient: ALETA CASTRO Age: 22 years Sex: [...] Daily, # 21 tab(s), Refills(s) 0, Pharmacy: [facility]/pharmacy #2345, 165, cm, 04/04/23 6:11:00 EST, Height/Length Dosing, 78, kg, 04/04/23 6:11:00 EST, Weight Dosing Percocet 5 mg-325 mg oral tablet: 1 tab(s), Oral, As Directed, 40 tab(s), Refill(s) 0, 1-2 po Q4-6hprn pain Dx: S83.512D Duration: 7 days, [facility]/pharmacy #2345, 165, cm, 04/04/23 6:11:00 EST, Height/Length Dosing, 78, kg, 04/04/23 6:11:00 EST, Weight Dosing, Home Medications (2) Active Ecotrin 325 mg Tab-EC 325 mg = 1 tab(s), Oral, Daily Percocet 5 mg-325 mg oral tablet 1 tab(s), Oral, As Directed Problem list: All Problems H/O: hypothyroidism / SNOMED CT 875817293 / Confirmed POTS (postural orthostatic tachycardia syndrome) / SNOMED CT 3827516672 / Confirmed Physical Examination Vital Signs 04/23/2023 [...] Blood Pressure 1 (more content not included)... [facility] Medical CenterComment on above:Result Comment: Electronically Signed By: [facility] Cyrus LEACH\.br\Date and Time Signed: 04/23/23 11:06 ESTProgress Note-PhysicianPatient: ALETA CASTRO Age: 22 years Sex: Female : 2000 Associated Diagnoses: None Author: Myron Marroquin DO Postoperative Information Procedure: L knee scope, ACL recon Preoperative Diagnosis: L ACL tear. Postoperative Diagnosis: same. Performed by: daniel. Police And Fire Dispatcher: Roby Camacho. Specimens Removed: none. Prosthesis: Arthrex. . Estimated Blood Loss: 10 ml. Complications: None. Anesthesia type: General, block.[facility] Medical CenterComment on above:Result Comment: Electronically Signed [...] Daily, # 21 tab(s), Refills(s) 0, Pharmacy: [facility]/pharmacy #2345, 165, cm, 04/04/23 6:11:00 EST, Height/Length Dosing, 78, kg, 04/04/23 6:11:00 EST, Weight Dosing Percocet 5 mg-325 mg oral tablet: 1 tab(s), Oral, As Directed, 40 tab(s), Refill(s) 0, 1-2 po Q4-6hprn pain Dx: S83.512D Duration: 7 days, [facility]/pharmacy #2345, 165, cm, 04/04/23 6:11:00 EST, [...] All Problems H/O: hypothyroidism / SNOMED CT 510172866 / Confirmed POTS (postural orthostatic tachycardia syndrome) / SNOMED CT 0343216382 / Confirmed, Active Problems (2) H/O: hypothyroidism POTS (postural orthostatic tachycardia syndrome) Histories Past Medical History: No active or resolved past medical history items have been selected or recorded. Family History: No family history items have been selected or recorded. Procedure history: Laparoscopic left ovarian R/o (9942896822). Ovarian cyst removal (167320271). Social History Social & Psychosocial Habits Alcohol [...] U beta hCG Ql Negative . Plan [place] Society of Anesthesiologists (ASA) physical status classification: Class II. Anesthetic Preoperative Plan: Anesthesia General. Regional Adductor Canal Block Left.[facility] Medical CenterComment on above:Result Comment: Electronically Signed By: Urbano MENDEZ)Cyrus\.br\Date and Time Signed: 04/23/23 07:41 ESTU BetaHcg Qualon 90-25-8997PFL.beta subunit (U) [Moles/Vol]NegativeNoOur Lady of Mercy Hospital - AndersonComment on above:Performed By: #### [id number] ####[facility] [address] [place], [place] [address]Ernxwke for Procedure/Surgery on 95-03-6353Jalbgxy for Procedure/Surgery [id number]#1.00TIFFWayne HealthCare Main Campus w/ Auto Diffon 16-52-7450Zcsdppuw Absolute0.0 E9/LNormal0.0-0.2FSelect Medical Specialty Hospital - AkronComment on above:Performed By: #### [id number] ####[facility] [address] [place], [place] [address]Ncbixmbok/100 WBC (Bld)0.4 %Normal0.0-2.0[facility] Medical CenterComment on above:Performed By: #### 2362527 ####[facility] Bucvy[address] [place], [place] [address]Icv Absolute0.1 E9/LNormal0.0-0.5FSelect Medical Specialty Hospital - AkronComment on above:Performed By: #### [id number] ####[facility] [address] [address]Mxhivwnbeig/100 WBC (Bld)1.0 %Normal0.0-8.0[facility] Medical CenterComment on above:Performed By: #### [id number] ####[facility] [address] [address]Kaxxfnysvbw distribution width (RBC) [Ratio]12.6 %Hmomcc55.9-14.2FSelect Medical Specialty Hospital - Akron Comment on above:Performed By: #### [id number] ####[address] [address]Pdoiolyeqb (Bld) [Volume fraction] 39.0 %Eacopu33.0-46.0[facility] Medical CenterComment on above:Performed By: #### [id number] ####[address] [address]Plyuombfif (Bld) [Mass/Vol]13.1 g/eAZfwtff96.0-16.0[facility] Medical CenterComment on above:Performed By: #### [id number] ####[address] [address]Vnwjb Absolute1.4 E9/LNormal 1.0-4.0[facility] Medical CenterComment on above:Performed By: #### 5348937 ####[address] [address] Lymphocytes/100 WBC (Bld)22.2 %Szubym49.0-50.0[facility] Medical CenterComment on above:Performed By: #### [id number] ####[place] [address] [address]RGG (RBC) [Entitic mass]30.6 pgNormal 27.0-34.0[facility] Medical CenterComment on above:Performed By: #### 8416786 ####[facility] [address] [address]OHWO (RBC) [Mass/Vol]33.7 g/zHEjxifg01.4-36.0[facility] Medical CenterComment on above:Performed By: #### 2735642 ####[place] [address] [address]CRG (RBC) [Entitic vol]91.0 pZWgilzn82.0-100.0 [facility] CenterComment on above:Performed By: #### [id number] ####[facility] [address] [address]Oxvd Absolute0.4 E9/LNormal0.2-1.0[facility] Medical CenterComment on above: Performed By: #### 1606265 ####[address] [address]Tvmksesmx/100 WBC (Bld)5.6 %Normal4.0-14.0[facility] Medical CenterComment on above:Performed By: #### 5284537 ####[address] [address]Iredhz Absolute4.6 E9/LNormal2.0-7.5FSelect Medical Specialty Hospital - AkronComment on above:Performed By: #### [id number] ####[address] [address]Awpwsn Auto70.8 %Bjthbr57.0-75.0[facility] Medical CenterComment on above:Performed By: #### [id number] ####[address] [address]Cajxzjfl611.0 E9/LNocfqn112.0-500.0[facility] Medical CenterComment on above:Performed By: #### [id number] ####[address] [address]Lzpybzqi mean volume (Bld) [Entitic vol]7.7 fLNormal6.4-10.8[facility] Grant Medical CenterComment on above:Performed By: #### [id number] ####[facility] [address], [place] [address]BDZ9.3 E12/LNormal4.3-5.9[facility] Medical CenterComment on above:Performed By: #### 9691404 ####[facility] [address] [place], [place] [address]KPQ8.5 E9/LNormal4.0-11.0 [facility] CenterComment on above:Performed By: #### 1271708 ####[facility] [address] [place] [address] Consent for Treatmenton 24-59-4703Mmlduss for Treatment [id number]#1.00TIFFNormalOhiohealth Grant Medical CenterHEMATOLOGYOrdered By: SYSTEM SYSTEM on 99-51-6663Dtpxpnug Absolute0.0 E9/L Normal0.0 - 0.2 E9/LRemisol HemeBasophils/100 WBC (Bld)0.4 %Normal0.0 - 2.0 % Remisol HemeEos Absolute0.1 E9/LNormal0.0 - 0.5 E9/LRemisol HemeEosinophils/100 WBC (Bld)1.0 %Normal0.0 - 8.0 %Remisol HemeErythrocyte distribution width (RBC) [Ratio]12.6 %Jrbqoo17.9 - 14.2 %Remisol HemeHematocrit (Bld) [Volume fraction] 39.0 %Mriacj76.0 - 46.0 %Remisol HemeHemoglobin (Bld) [Mass/Vol]13.1 g/dLNormal 12.0 - 16.0 gm/dLRemisol HemeLymph Absolute1.4 E9/LNormal1.0 - 4.0 E9/LRemisol HemeLymphocytes/100 WBC (Bld)22.2 %Rzwpoy09.0 - 50.0 %Remisol HemeMCH (RBC) [Entitic mass]30.6 fdQqfleo72.0 - 34.0 pgRemisol HemeMCHC (RBC) [Mass/Vol]33.7 g/uVFchdke94.4 - 36.0 gm/dLRemisol HemeMCV (RBC) [Entitic vol]91.0 nXYkleml77.0 - 100.0 fLRemisol HemeMono Absolute0.4 E9/LNormal0.2 - 1.0 E9/LRemisol Heme Monocytes/100 WBC (Bld)5.6 %Normal4.0 - 14.0 %Remisol HemeNeutro Absolute4.6 E9/LNormal2.0 - 7.5 E9/LRemisol HemeNeutro Auto70.8 %Ejlzui35.0 - 75.0 %Remisol LqghLzpocqkl219.0 E9/UKsgnem858.0 - 500.0 E9/LRemisol HemePlatelet mean volume (Bld) [Entitic vol]7.7 fLNormal6.4 - 10.8 fLRemisol HemeRBC4.3 E12/LNormal4.3 - 5.9 E12/LRemisol HemeWBC6.5 E9/LNormal4.0 - 11.0 E9/LRemisol HemeCOVID/FLU/RSV RT-PCRon 72-55-3355OQGM-CoV-2 (COVID-19) RNA QUEENIE+probe Ql (Unsp spec)Negative [facility] Print[employer] Other COVID/FLU/RSV RT-PCRNegativeTaneyville [employer] Other quick Strepon 04-01-2023S. pyogenes Org specific cx Ql (Throat)NegativeTaneyville [employer] Other quick Twenty [employer]ansCloudscaling [employer] Other [place] Gallbladderon 80-18-9723KK GallbladderClinical History: Right upper quadrant pain. Diarrhea. [...] and signed by Cornelius Hernandez on 07/23/[address] jose[facility] medical centern ACMC Healthcare System GlenbeighOG PANEL 2: to 29on 05-09-2022..NormalThe [facility] on above:Performed By: #### [id number] #### [facility] [address] [place] [address] Dr. Yovanny Kelly Gdln ACOG Gtrbdft65-36YhfxvcJybDelaware County Hospital on above:Performed By: #### [id number] #### [facility] [address] [address] [address] Yovanny VillegasDIAGNOSIS:CommentMercy Health Lorain Hospital on above: Result Comment: NEGATIVE FOR INTRAEPITHELIAL LESION OR MALIGNANCY.Performed By: #### [id number] #### [facility] [address] [place] [address] Dr. Yovanny VillegasMethodology:CommentMercy Health Lorain Hospital on above: Result Comment: This liquid based ThinPrep(R) pap test was screened with the use of an image guided system.Performed By: #### [id number] #### [facility] [address] [place] [address] Dr. Yovanny VillegasNote:CommentMercy Health Lorain Hospital on above:Result Comment: The Pap smear is a screening test designed to aid in the detection of premalignant and malignant conditions of the uterine cervix. It is not a diagnostic procedure and should not be used as the sole means of detecting cervical cancer. Both false-positive and false-negative reports do occur. .Performed By: #### [id number] #### [facility] [address] [address] [address] Yovanny VillegasPerformed by:CommentMercy Health Lorain Hospital on above: Result Comment: Deedee Navarrete, Grass Cutter (ASCP)Performed By: #### [id number] #### [facility] [address] [place] [address] Dr. Yovanny VillegasReflex Criteria:CommentNormalThe Alba HospitalComment on above:Result Comment: The HPV DNA reflex criteria were not met with this specimen result therefore, no HPV testing was performed. .Performed By: #### [id number] #### [facility] [address] [place] [address] Dr. Yovanny Anthony adequacy:CommentNoOhioHealth Pickerington Methodist HospitalComment on above:Result Comment: Satisfactory for evaluation. Endocervical and/or squamous metaplastic cells (endocervical component) are present.Performed By: #### [id number] #### [facility] [address] [place] [address] Dr. Yovanny VillegasCHLAMYDIA/GONOCOCCUS QUEENIE (SWAB/URINE/PAPon 10-44-4876Ppmythulo trachomatis, NAANegativeNormalNegativeCommunity Regional Medical CenterComment on above: Performed By: #### CT/NGNA #### [facility] [address] [place] [address] Dr. Yovanny VillegasNeisseria gonorrhoeae, NAANegativeNormalNegativeCommunity Regional Medical CenterComment on above:Performed By: #### CT/NGNA #### [facility] [address] [place] [address] Dr. Yovanny VillegasVAGINITIS/VAGINOSIS DNA PROBEon 77-73-3683Hpgprea speciesNegative NormalNegativeCommunity Regional Medical CenterComment on above:Performed By: #### VAGINT #### [facility] [address] [place] [address] Dr. Yovanny VillegasGardnerella vaginalisNegativeNormalNegativeCommunity Regional Medical Center Comment on above:Performed By: #### VAGINT #### [facility] [address] [place] [address] Dr. Yovanny VillegasTrichomonas vaginalisNegativermalNegativeCommunity Regional Medical Center Comment on above:Performed By: #### VAGINT #### [facility] [address] [place] [address] Dr. Yovanny VillegasXR KNEE LEFT (3 VIEWS)on 45-14-9359BS KNEE LEFT (3 VIEWS) EXAMINATION: THREE XRAY [...] Signed by: Deshaun Aguilar MD 05/24/21 Final resultNormalVeterans Health AdministrationNo fracture or dislocation. [facility] CONSOLIDATEDEXAMINATION: THREE XRAY VIEWS OF THE LEFT KNEE 05/24/2021 8:48 pm COMPARISON: None. HISTORY: ORDERING SYSTEM PROVIDED HISTORY: pain eval occult bony injury TECHNOLOGIST PROVIDED HISTORY: pain eval occult bony injury FINDINGS: No fracture, dislocation, or focal osseous lesion is noted. No significant soft tissue abnormality seen. [facility] Deshaun Bejarano MD - 05/24/2021 EXAMINATION: THREE XRAY VIEWS OF THE LEFT KNEE 05/24/2021 8:48 pm COMPARISON: None. HISTORY: ORDERING SYSTEM PROVIDED HISTORY: pain eval occult bony injury TECHNOLOGIST PROVIDED HISTORY: pain eval occult bony injury FINDINGS: No fracture, dislocation, or focal osseous lesion is noted. No significant soft tissue abnormality seen. IMPRESSION: No fracture or dislocation. [facility] Phone: radiology Study observation (narrative)[facility] Phone: XR KNEE LEFT (3 VIEWS)Ordered By: Deshaun Aguilar on 80-71-4836[facility] Work Phone: COVID Quick Testingon 09-39-2949EdamwzYejiwuvqCkaal [employer] Other Quick Strepon 05-01-2021. pyogenes Org specific cx Ql (Throat)[place] [employer] Other Quick StrepNosainte [facility] [employer] Other COVID Quick Testingon 97-42-4853LsmxtaLggjwkniYyxsd [employer] Other Qujiw Fluon 90-58-1265QPXNL Ab CF (S) [Titer]Negative [place] [employer] Other FLUBV Ab CF (S) [Titer]NegativeNoPottstown Hospital [employer] Other XR SACRUM COCCYX (MIN 2 VIEWS)on 12-62-5737SV SACRUM COCCYX (MIN 2 VIEWS)EXAMINATION: THREE XRAY VIEWS OF THE SACRUM/COCCYX 12/14/2020 3:10 am COMPARISON: None. HISTORY: ORDERING SYSTEM PROVIDED HISTORY: fall at work - hit ogipd2pz TECHNOLOGIST PROVIDED HISTORY: fall at work - hit wivxy7hq FINDINGS: The sacroiliac joints are normally aligned. The visualized portions the pelvis are. There is no fracture of the sacrum or coccyx evident. IMPRESSION: No acute osseous abnormality of the sacrum or coccyx evident. Interpreted by: Loc Oswald MD Signed by: Loc Oswald MD 12/14/20 Final resultNormalMerRockville General HospitalXR SACRUM COCCYX (MIN 2 VIEWS)Ordered By: David Dominguez on 73-12-7142Jr acute osseous abnormality of the sacrum or coccyx evident.[employer] Work Phone: eXAMINATION: THREE XRAY VIEWS OF THE SACRUM/COCCYX 12/14/2020 3:10 am COMPARISON: None. HISTORY: ORDERING SYSTEM PROVIDED HISTORY: fall at work - hit kbvfs4jh TECHNOLOGIST PROVIDED HISTORY: fall at work - hit xflze4gi FINDINGS: The sacroiliac joints are normally aligned. The visualized portions the pelvis are. There is no fracture of the sacrum or coccyx evident. [employer] Work Phone: e, [facility] Incoming Radiant Results From [employer] - 12/14/2020 3:24 AM EDT EXAMINATION: THREE XRAY VIEWS OF THE SACRUM/COCCYX 12/14/2020 3:10 am COMPARISON: None. HISTORY: ORDERING SYSTEM PROVIDED HISTORY: fall at work - hit hplfu2qq TECHNOLOGIST PROVIDED HISTORY: fall at work - hit hziek5vj FINDINGS: The sacroiliac joints are normally aligned. The visualized portions the pelvis are. There is no fracture of the sacrum or coccyx evident. IMPRESSION: No acute osseous abnormality of the sacrum or coccyx evident. [employer] Work Phone: [facility] Work Phone: ct HEAD WO CONTRASTon 20-23-8252ND HEAD WO CONTRAST EXAMINATION: CT OF THE [...] by: Maira Cruz MD 09/19/20 Final resultNormalMercy Health Urbana Hospital Head WO ContrastOrdered By: Luis Carlos Fragoso on 31-29-6542Ijggfroffvem noncontrast CT examination of the brain.[facility] Phone: eXAMINATION: CT OF THE HEAD WITHOUT [...] abnormality of the visualized skull or soft tissues.[facility] Phone: edi, [facility] Incoming Radiant Results From [employer] - 09/19/2020 4:42 PM EDT EXAMINATION: CT [...] Unremarkable noncontrast CT examination of the brain. [facility] Phone: [facility] Phone: coding Summaryon 62-85-7661Mdsllf SummaryCODING DATE: 10/27/2019 [facility] STATUS: Home PAYOR: [facility] ADMIT DX: REASON FOR VISIT DX: J02.9 [...] By: Ashley Pablo Date Saved: 10/27/2019 03:10 [facility]2019 Novel Coronavirus (CoVID-19), QUEENIE LCon 15-74-1397VXHK-CoV-2, QUEENIE (COVID-19) LCNot DetectedNot [facility] HospitalComment on above:Order Comment: [id number] Comment: This test was developed and its performance characteristics determined by [employer]. This test has not been FDA cleared [...] detected) result in this assay. Performed At: [facility] [address] [address] [facility], [place] [id number] Ruba Washburn MD Ph:[phone] By: #### [id number] #### [facility] (DEFAULT) [address] [place] [address]Pgrjddj Formson 95-18-5248Afmvwfy Forms [id number]#1.00OTGTSelect Medical Specialty Hospital [facility] [place] on 68-90-0880CFKAVbeucu TextToll Free: [phone]/cancer [facility] Emiearet[address] [place] [address]Oyxhl: [phone]: [facility] Eycrv[address] [place], [place] [address]Ncqoa: [phone]: [facility] Hospitalk[address] [place], [place] [address]Uzqno: [phone]: Steve Pablo M.D., Ronaldo Marquez M.D.David Becerril M.D.Papito Sood D.O..Myriam Chaudhari M.D.Deandre Montoya M.D. Matthew Huff M.D.Date: July 15, 2017Re: Aleta Elliott WHOM IT MAY CONCERN:She was seen in our office today.Sincerely,Katelin Cardona PSR(signed electronically to expedite mailing)[facility], BeachwoodCNOVSPon 24-01-2521YKKEXKSpwtt (SP) Office (HEMACL) --------ALETA GARAY ([id number]) 89 FDate Time Provider Department07/15/17 3:15 PM MIAN BECERRIL HEMGASPER During your visit [...] nourishedNeuro: Gait normal.Collected: 05/15/17 104 3Resulting lab: [facility] MAIN LABORATORYValue: (NOTE)Comment: Performing Pathologist: Jo-Ann Sesay [...] list. no changes .Referring Provider: DAVID BECERRIL [[id number]]Allergies As of Date: 07/15/2017(No Known Allergies)Date Reviewed: [...] .Encounter Status:Closed by DAVID BECERRIL MD on 07/17/17[facility] 53-34-9356CNFNRNZTGUS ID: [id number]: David Escaleraervice: (none)Author Type: PhysicianType: Progress NotesFiled: [...] well nourishedNeuro: Gait normal.Collected: 05/15/17 1043Resulting lab: [facility] MAIN LABORATORYValue: (NOTE)Comment: Performing Pathologist: Jo-Ann Sesay [...] issues certainly could consider further testingAlfred Kavon BaroneMercy Health St. Elizabeth Youngstown HospitalPlatelet Func Scrnon 34-63-9981ISE/ADP Yumzwfeco40 CT (sec) Normal<118[facility] on above:Result Comment: Results are reported as Closure Time (CT) in seconds.Performed By: #### PLTSCP ####[place] [address] [address] AvHeaths[place], [place] [phone] 44-2504COL/EPI Jmrtunrbr621 CT (sec)Normal<199CleWilson [facility] Hospital on above:Result Comment: Results are reported as Closure Time (CT) in seconds. Performed By: #### PLTSCP ####[facility] Mzamudhrkovs[address] AveCPierpont, [place] [phone] Func Scr Interp(NOTE)NormalOhioHealth Hardin Memorial Hospital on above:Result Comment: Performing Pathologist: [...] bleeding disorder. Performed By: #### PLTSCP ####[address] [place] ResearchHeathsville, [place] [phone] CBCDIF (for [facility] use only)on 47-39-6460Bhg Baso<0.03Normal<0.11CChildren's Hospital for Rehabilitation on above: Performed By: #### EVANDF ####[place] [address] [address] AveCPierpont, [place] [phone] Mono0.53 k/uLNormal<0.87[facility] on above:Performed By: #### EVANDF ####[place] [address] [address] AveCPierp[address], [place] [phone] Neut2.59 k/uL Normal1.45-7.50[facility] on above:Performed By: #### EVANDF ####[address] Av[address]aths[place], [place] [phone]/100 WBC Auto (Bld)0.4 %NormalOhioHealth Hardin Memorial Hospital on above:Performed By: #### EVANDF ####[address] AvHeaths[place], [place] [phone] DiffNormal [facility] on above:Performed By: #### EVANDF ####[address] [phone] 10*3/uLNormal<0.46[facility] on above:Performed By: #### EVANDF ####[place] [address] [address] AvHeaths[place], [place] [phone]/100 leukocytes1.5 %Normal [facility] on above:Performed By: #### EVANDF ####[address] Av[address]aths[place], [place] [phone] distribution width Auto Ratio (RBC)12.2 %Qqlnrp15.5-15.0 [facility] on above:Performed By: #### RACHEL ####[address] Av[address]aths[place], [place] [phone] 44-5755Erythrocytes (RBC)4.15 10*6/uLNormal3.90-5.20[facility] Comment on above:Performed By: #### RCBCDF ####[address] Av[address]aths[place], [place] [phone] (RBC)0.0 /100 WBCNormal 0[facility] Hospitalment on above:Performed By: #### RCBCDF ####[address] AvHeathsville, [place] [phone] (RBC)10*6/uLNormal<0.01[facility] on above:Performed By: #### RCBCDF ####[address] [phone] (HCT)39.4 %Twsejr08.0-46.0 [facility] HospitalComment on above:Performed By: #### RCBCDF ####[address] [phone] mass conc (Bld)12.8 g/rHCqimav76.5-15.5CChildren's Hospital for Rehabilitation on above:Performed By: #### RCBCDF ####[address] [phone] 10*3/uLNormal1.00-4.00[facility] on above:Performed By: #### RCBCDF ####[address] [phone]/100 gkgerdhswx06.9 %NormalOhioHealth Hardin Memorial Hospital on above:Performed By: #### RCBCDF ####[address] [phone] pGNormal 26.0-34.0[facility] on above:Performed By: #### CHONBCDF ####[place] [phone] mass conc (RBC)32.5 g/uRQxuwlj52.5-36.0[facility] Comment on above:Performed By: #### EVANDF ####[place] [phone] eAQiwnpg28.0-100.0[facility] on above:Performed By: #### EVANDF ####[place] [phone]/100 guyjkdtxsh41.6 %NormalOhioHealth Hardin Memorial Hospital on above:Performed By: #### EVANDF ####[place] [phone]/100 WBC Auto (Bld)56.6 %NormalOhioHealth Hardin Memorial Hospital on above:Performed By: #### CHONBCDF ####[place] [phone] mean volume (PMV)10.2 fLNormal9.0-12.7CChildren's Hospital for Rehabilitation on above:Performed By: #### CHONBCDF ####[place] [phone] 10*3/bZUrhusf650-052DskkufzgvMarion Hospital Comment on above:Performed By: #### EVANDF ####[place] [phone] (Leukocytes)4.58 10*3/uLNormal 3.70-11.00[facility] on above:Performed By: #### EVANDF ####[address] [place], [place] [phone] 44-5755CNCOon 55-68-7563XCJXCjbprw TextToll Free: [phone].[email or web address]/cancer [facility] Aukndjki[address] Bret HungT[place], [place] [address]Hmjar: [phone]: [facility] Qhwgk[address] [place], [place] [address]Psdjx: [phone]: [facility] Eoyjzic[address] [place], [place] [address]Xtfaf: [phone]: Steve Pablo M.D., Jonna Castro M.D.Papito Sood D.O..Carin Hoover M.D. FACROSaju A. Rajan, M.D.Date: April 29, 2017Re: Aleta RuizvipulSKYLER WHOM IT MAY CONCERN:She was seen in our office today.Sincerely,Karly Pizarro Psr(signed electronically to expedite mailing)[facility], BeachwoodCNOVSPon 13-56-2203YEGXSBWhgcn (SP) Office (HEMACL) --------BEVVIPULSUMMER ([id number]) 89 FDate Time Provider Department04/29/17 2:30 PM MIAN BECERRIL During your visit today, we recorded the following information about you: Temperature Pulse Respiration Blood pressure 97.2 degrees 76/minute 18/minute 107/56 Weight Last Period 58.3 kg 04/15Aljarred Becerril MD 04/29/2017 3:56 PM SignedCHIEF COMPLAINT: platelet storage pool defectHISTORYOF PRESENT ILLNESS: Summer Tanisha is a 16 year old female who [...] patientand her mother at length. Would check DLP439 at this time, further testingbased on results.1. [...] (HCC) [D69.1]Order(s):PLATELET FUNCTION SCREEN [SQPLTSCP] Order #: [id number] FUTURE CBC + DIFF (FOR REMOTE [facility] USE) [SQRCBCDF] Order #: [id number] FUTUREDisposition: Return in about 6 weeks (around [...] Status:Closed by DAVID BECERRIL MD on 04/29/17Normal [facility] HospitalPROGRESSon 12-02-5044NWBTQFLUOIF ID: [id number]: David Escaleraervice: (none)Author Type: PhysicianType: Progress NotesFiled: 04/29/2017 3:56 PMNote Text:CHIEF COMPLAINT: platelet storage pool defectHISTORY OF PRESENT ILLNESS: Summer Tanisha is a 16 year old female who [...] and her mother at length. Would check QPC479 at this time, furthertesting based on results.1. 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, choice of management likely to be influenced by history ofPOTSAlfred Chery Barone [facility] Vital Signs Date TimeVital SignValuePerforming CbpdrzcxjQpgdesbq94-67-8624 14:02-0500Body mass index (BMI) [Ratio]30 kg/m2Pretty ARELLANO Work Phone: [facility] HospitalUioqbzupjr98-77-2510 14:02-0500Body .29 kgPretty ARELLANO Work Phone: [facility] HospitalIlwoilpvpd96-38-2607 14:02-0500Diastolic blood imdrmlgu55 mm[Hg]Pretty ARELLANO Work Phone: [facility] HospitalTsdcsxhefd36-66-2509 14:02-0500Systolic blood xqszymgw19 mm[Hg]Pretty ARELLANO Work Phone: [phone] [place], [place] [address]Ycecmeyvsi26-96-9999 13:04-0400Body mass index (BMI) [Ratio]29.59 kg/s0Xsyfs William DO Work Phone: [phone] [place], [place] [address]Qxtvgciuey38-43-8831 13:04-0400Body gowqax19.2 kg Doc William DO Work Phone: 1(390)[facility] [place], [place] [address]Uqkbvpmtis36-19-4022 13:04-0400Diastolic blood anxvjily04 mm[Hg]Doc William DO Work Phone: 1(508)[facility] [place], [place] [address]Ikeigecclm25-62-3096 13:04-0400Systolic blood ykbpjxrp127 mm[Hg]Doc William DO Work Phone: 1(065)[facility] [place], [place] [address]Vjprphluik24-41-4147 13:57-0400Body mass index (BMI) [Ratio]29.42 kg/g7EdbzuvpyLuna Steen RESTAURANT TEAM MEMBER Work Phone: [phone] [place], [place] 7594810-08-2025 13:57-0400Body ielhfh47.75 kgLuna Steen RESTAURANT TEAM MEMBER Work Phone: 1(603)[facility] [place], [place] [address]Wpvzxdpnyw37-38-6998 13:57-0400Diastolic blood ddgnywaq00 mm[Hg]Luna Steen RESTAURANT TEAM MEMBER Work Phone: 1(022)[facility] [place], [place] [address]Edzwlyiwmd10-02-2245 13:57-0400Systolic blood oilgxhqs878 mm[Hg]Luna Steen RESTAURANT TE[employer] MEMBER Work Phone: [phone] [place], [place] 7594809-24-2025 14:07-0400Body mass index (BMI) [Ratio]28.84 kg/e2Qxthi William DO Work Phone: 1(921)[facility] [place], [place] [address]Vpvoagpdyk53-58-0806 14:07-0400Body .2 kg Doc William DO Work Phone: 1(885)[facility] [place], [place] [address]Yolxigwpzw97-19-7619 14:07-0400Diastolic blood gitdcyww74 mm[Hg]Doc William DO Work Phone: 1(991)[facility] [place], [place] [address]Speojilwqb92-54-8295 14:07-0400Systolic blood mm[Hg]Doc William DO Work Phone: 1([phone])669-[address] [place], [place] [address]Idyagycjwl18-26-5604 14:04-0400Body mass index (BMI) [Ratio]29.95 kg/w3Mtsmgmvk Enio RESTAURANT TE[employer] MEMBER Work Phone: [phone]-[facility] HospitalVmbtbkbziv10-42-8750 14:04-0400Body .15 kgLuna Enio RESTAURANT TEAM MEMBER Work Phone: 1(058)445-[address] [place], [place] [address]Xthytrqvcj39-76-0643 14:04-0400Diastolic blood xuxyuoad73 mm[Hg]Luna Enio RESTAURANT TE[employer]BER Work Phone: [phone])232-[address] [place], [place] [address]Ylcikitkrw23-72-1927 14:04-0400Systolic blood rtewaufg547 mm[Hg]Luna Enio RESTAURANT TE[employer] MEMBER Work Phone: 1(822)247-[address] [place], [place] [address]Fgqeglsonz21-38-9425 14:39-0400Body mass index (BMI) [Ratio]28.49 kg/m2Pretty Chaidez PA Work Phone: [phone])839-[address] [place], [place] [address]Rfwauomwjl28-97-4742 14:39-0400Body hxqucm50.3 kg Pretty Chaidez PA Work Phone: [phone])009-[address] [place], [place] [address]Rgdeyipfhu17-79-5918 14:39-0400Diastolic blood attdjudy11 mm[Hg]Pretty Chaidez PA Work Phone: 1(803)702-[address] [place], [place] [address]Xnjiwmvnqd19-52-7760 14:39-0400Systolic blood mm[Hg]Pretty Chaidez PA Work Phone: [phone] [place], [place] [address]Badbsxcgsi59-51-7776 15:34-0400Body mass index (BMI) [Ratio]28.29 kg/z0Gikft William DO Work Phone: 1(246)695-[address] [place], [place] [address]Skddzsxirh54-63-7718 15:34-0400Body btsuiy67.75 kgCorey William DO Work Phone: [phone])119-[facility] HospitalFjybxmkjrn91-11-1456 15:34-0400Diastolic blood mm[Hg]Doc William DO Work Phone: 1(163)483-[address] [place] [address]-16-2025 15:34-0400Systolic blood flkfwokt054 mm[Hg]Doc William DO Work Phone: [facility] HospitalZrfffetbjv39-24-5345 14:27-0400Body mass index (BMI) [Ratio]30.21 kg/n9Hcneq William DO Work Phone: [facility] HospitalDeiztngwai57-03-9067 14:27-0400Body qksxuz80.83 kgCorey William DO Work Phone: 1(323)630-[address] [place], [place] [address]Trojodeoxa56-56-7145 14:27-0400Diastolic blood gmnbkyam81 mm[Hg]Doc William DO Work Phone: [facility] HospitalUgedouvlso97-24-3613 14:27-0400Systolic blood qeokmidq316 mm[Hg]Doc William DO Work Phone: [facility] HospitalTpzcomqoec45-23-8717 15:41-0500Body vdiagt969.6 cmDavid Pocos DO Work Phone: [facility] HospitalHspzpfvwmd77-92-6961 15:41-0500Body mass index (BMI) [Ratio]30.21 kg/i9Snxej Pocos DO Work Phone: [facility] HospitalGhlogpymdo17-58-5477 15:41-0500Body iojkbs42.83 kgDavid Pocos DO Work Phone: [facility] HospitalAmmtezhlrl01-41-3336 15:26-0500Body frofaa783.6 cmEtyshawn Payne MD Work Phone: [facility] HospitalHygmmpszlj91-71-6647 15:26-0500Body mass index (BMI) [Ratio]30.21 kg/s5DaqiiuRosalie Payne MD Work Phone: [facility] HospitalHsagnjwiad62-80-8431 15:26-0500Body alsknf64.83 kgRosalie Payne MD Work Phone: [facility] HospitalZnjspkgkjx59-37-3698 15:26-0500Heart rate88 /min Rosalie Payne MD Work Phone: [facility] HospitalMbvowflxab71-56-5418 15:26-0495LnB8% (BldA) [Mass fraction]98 %Rosalie Payne MD Work Phone: [facility] HospitalJrmrjenlxi30-87-4606 08:00-0400Body iyjwsj552.6 cmKelvin Schwartz DO Work Phone: [facility] HospitalKohypodqms44-49-0744 08:00-0400Body mass index (BMI) [Ratio]30.9 kg/d3GpyxbKelvin Schwartz DO Work Phone: [facility] HospitalJsvhecdbyy60-26-3831 08:00-0400Body caxedj61.65 kgKelvin Schwartz DO Work Phone: [facility] HospitalEytphtgtng09-48-4424 14:25-0400Diastolic blood orgrjome69 mm[Hg]MD Rosalie Payne Work Phone: 1([phone]06-17-2024 14:25-0400 Heart rate80 /minMD Rosalie Payne Work Phone: 1(722)[address] [place], [place] 2864506-17-2024 14:25-0400 Respiratory rate18 /minMD Rosalie Payne Work Phone: 1(340)[address] [place], [place] 2864506-17-2024 14:25-0400 SaO2% (BldA) [Mass fraction]100 %MD Rosalie Payne Work Phone: 1(998)[address] [place], [place] 28[address]506-17-2024 14:25-0400 Systolic blood mm[Hg]MD Rosalie Payne Work Phone: 1(762)[facility] [place], [place] [address]206-17-2024 11:31-0400 Body fzudmi874.1 cmMD Rosalie Payne Work Phone: 1(744)[address] [place], [place] 2864506-17-2024 11:31-0400 Body hzibtrkisdb02.4 [degF]MD Rosalie Payne Work Phone: 1(446)[address] [place], [place] 2864506-17-2024 11:31-0400 Body eebfqb11.11 kg Rosalie Payne Work Phone: 1(315)[address] [place], [place] 2864505-09-2024 14:21-0400 Body eofxzn171.1 [facility]20[facility] 14:21-0400Body mass index (BMI) [Ratio]28.3 kg/n2VjdtbgkvnLima [facility] Hospital05-09-2024 14:0400Body .11 kgL[facility]05-09-2024 14:-0400Diastolic blood mm[Hg][facility] 07-25-2023 14:21-0400Heart rate81 /minL[facility] 07-25-2023 14:-0400Systolic blood mm[Hg][facility]01-17-2024 14:55-0500Diastolic blood clvddyhj38 mm[Hg]Myron Marroquin [address]01-17-2024 14:55-0500Heart guvz394 /minDavid Daniel [address]01-17-2024 14:55-0500Mean blood tyoxpzun390 mm[Hg]Myron Marroquin [address]01-17-2024 14:55-0500 Systolic blood mm[Hg]Myron Marroquin [address]01-17-2024 14:53-0500Heart rate98 /minDavid Vaniaos [address] [place], [place] 55[address]101-17-2024 14:53-3670ZdH3% (BldA) [Mass fraction]99 %Myron Marroquin [address] [place], [place] 5533101-17-2024 14:53-0500 Diastolic blood kjsuuncu62 mm[Hg]Myron Marroquin [address]01-17-2024 14:53-0500Mean blood oiyeuwdc739 mm[Hg]Myron Marroquin [address]01-17-2024 14:53-0500 Systolic blood dltoijzb941 mm[Hg]Myron Pocos [facility]01-17-2024 14:52-0500 Respiratory rate16 /minDavid Pocos [facility]01-15-2024 10:45-0500Body zkxmyf865.1 cmAmanda Kristine Other [place] [employer] Other 01-15-2024 10:45-0500Body mass index (BMI) [Ratio] 28.29 kg/w8Qddupk Kristine Other [place] [employer] Other 01-15-2024 10:45-0500Body pytxabostrz78.1 [degF]Destinee Kristine Other [place] [employer] Other 01-15-2024 10:45-0500Body fggaor33.11 kgAmanda Kristine Other [facility] Other 01-15-2024 10:45-0500Respiratory rate18 /minAmanda Kristine Other [employer] Other 01-15-2024 10:45-9684GiJ7% (BldA) [Mass fraction]99 % Destinee Kristine Other [employer] Other 06-06-2022 11:25-0400Body ubphuo412.1 cmPamela Martha Other [employer] Other 06-06-2022 11:25-0400Body mass index (BMI) [Ratio] 27.12 kg/c1Pqjahu Martha Other [employer] Other 06-06-2022 11:25-0400Body doswrlkvjal22.6 [degF]Carlie Thomas Other [facility] [employer] Other 06-06-2022 11:25-0400Body lprazv08.94 kgCarlie Thomas Other [facility] [employer] Other 06-06-2022 11:25-0400Respiratory rate18 /minCarlie Thomas Other [facility] [employer] Other 06-06-2022 11:25-9048FnM8% (BldA) [Mass fraction]97 % Carlei Thomas Other [facility] [employer] Other 03-09-2022 20:36-0500Body pkbysgehkdb02.7 [degF]Artis Yoder DO Work Phone: [facility] HospitalHeald CollegeWbmmoj41-78-7864 20:36-0500Diastolic blood bxaosytl43 mm[Hg]Artis Yoder DO Work Phone: [facility] HospitalHeald CollegeXnsaij49-69-6066 20:36-0500Heart vjio075 /min Artis Yoder DO Work Phone: [facility] HospitalHeald CollegeAwxepq85-21-8280 20:36-0500Respiratory rate16 /minArtis Yoder DO Work Phone: [facility] HospitalHeald CollegeWszslz75-55-2612 20:36-8208GjY5% (BldA) [Mass fraction]97 %Artis Herithad DO Work Phone: [facility] HospitalHeald CollegeBcetjm92-92-9543 20:36-0500Systolic blood tisazgge670 mm[Hg]Artis Yoder DO Work Phone: [facility] HospitalHeald CollegeYgtpzr96-28-7596 13:10-0500Body .1 cm Adriana Evangelista [facility] [employer] Other 02-24-2022 13:10-0500Body mass index (BMI) [Ratio] 27.12 kg/l2Kuqiacvbw Jean Carlos Other [employer] Other 02-24-2022 13:10-0500Body diwkfgpbhqj61.8 [degF] Adriana Garciaault Other [employer] Other 02-24-2022 13:10-0500Body cdikoj98.94 kgStjen Evangelista Other [employer] Other 02-24-2022 13:10-0500Diastolic blood mm[Hg] Adriana Garciaault Other [employer] Other 02-24-2022 13:10-0500Respiratory rate18 /minSfeliz Garciaault Other [employer] Other 02-24-2022 13:10-8541OwR9% (BldA) [Mass fraction]99 % Adriana Garciaault Other [employer] Other 02-24-2022 13:10-0500Systolic blood vbwsgrah509 mm[Hg] Adriana Jean Carlos Other [employer] Other 02-14-2022 11:40-0500Body vaxtiz849.1 cmPamelsridhar Thomas Other noNPS Other 02-14-2022 11:40-0500Body mass index (BMI) [Ratio] 26.62 kg/y8Aglozz Martha Other [employer] Other 02-14-2022 11:40-0500Body sfjrlxzmosm60.6 [degF]Carlie Thomas Other [employer] Other 02-14-2022 11:40-0500Body qckaun40.58 kgCarlie Thomas Other [employer] Other 02-14-2022 11:40-0500Respiratory rate18 /minCarlie Thomas Other [employer] Other 02-14-2022 11:40-1855OdN7% (BldA) [Mass fraction]99 % Carlie Thomas Other [employer] Other 01-21-2022 12:00-0500Body .1 cmCreyes Ashley Other [employer] Other 01-21-2022 12:00-0500Body mass index (BMI) [Ratio] 26.62 kg/y1DuchvvSandeep Ramirez Other [employer]PS Other 01-21-2022 12:00-0500Body ryecdzwasli18.6 [degF]Sandeep Ramirez Other noNPS Other 01-21-2022 12:00-0500Body rirnjl71.58 kgSandeep Ramirez Other [employer]PS Other 01-21-2022 12:00-0079PpI3% (BldA) [Mass fraction]98 % Sandeep Ramirez Other [employer] Other 09-28-2021 23:25-0400Diastolic blood rnkzsppu02 mm[Hg] David Dominguez MD Work Phone: [facility] [employer] Work Phone: 1(224) [phone] 23:25-0400Systolic blood mm[Hg] David Dominguez MD Work Phone: [phone] [employer] Work Phone: 1(611) [phone] 23:23-0400Body qmxulv496.1 Mira Dominguez MD Work Phone: [facility] [employer] Work Phone: [phone] 23:23-0400Body mass index (BMI) [Ratio] 26.63 kg/s9WkwmvxdDavid Dominguez MD Work Phone: [phone] [employer] Work Phone: [phone] 23:23-0400Body nuxrqgxzkxi12.29 [degF] David Dominguez MD Work Phone: [facility] [employer] Work Phone: 1(538) 446-626909-28-2021 23:23-0400Body wzufyq38.58 kgDavid Dominguez MD Work Phone: [facility] [employer] Work Phone: 1(461) 185-410509-28-2021 23:23-0400Heart rate79 /Sharon Dominguez MD Work Phone: [phone] [employer] Work Phone: 1(532) [phone] 23:23-0400Respiratory rate14 /Sharon Dominguez MD Work Phone: [facility] [employer] Work Phone: 1(705) [phone] 23:23-5846TtA5% (BldA) [Mass fraction]99 % David Dominguez MD Work Phone: [facility] [employer] Work Phone: 1([phone]) 439-344307-05-2021 15:56-0400Body dsihhdfccmn87.6 [degF][facility] [employer] Work Phone: 1([phone]) 550-145107-05-2021 15:56-0400Diastolic blood ujswtluj75 mm[Hg] [employer] Work Phone: 1([phone]) 412-241907-05-2021 15:56-0400Heart rmkm388 /minStart[employer] Work Phone: 1(258) 489-722707-05-2021 15:56-0400Respiratory rate16 /minStart[employer] Work Phone: 1([phone]) 438-999807-05-2021 15:56-7330IlJ8% (BldA) [Mass fraction]100 % [employer] Work Phone: 1([phone]) 349-348407-05-2021 15:56-0400Systolic blood oaknmoex520 mm[Hg] [employer] Work Phone: Encounters Encounter DateEncounter TypeCare ProviderFacilityStart: 01-23-2025 End: 32-60-4874Yvfwsskob Result EncounterCorey William DO Work Phone: noms External Department UnsolicitedStart: 01-23-2025 End: 96-00-0629Ddkbuyaux Result EncounterCorey William DO Work Phone: noms External Department UnsolicitedStart: 01-20-2025 End: 01-24-6698Yppacg Herson ARELLANO Work Phone: noms [place] [facility]YNStart: 01-20-2025 End: 33-76-2631Hvmwzu Herson ARELLANO Work Phone: [facility] [place] [facility]BGYNStart: 01-20-2025 End: 37-09-2698Xmhkrdnmb Result EncounterCorey William DO Work Phone: noms External Department UnsolicitedStart: 01-20-2025 End: 25-86-3105Afypzyzg flow Arsenio ARELLANO Work Phone: NOAJ [facility] OBGYNComment on above:Third trimester ([facility]); 35 weeks gestation of ([facility])Start: 01-20-2025 End: 72-42-2250rcipmkkcwfBKZ RAMEYNot AvailableStart: 01-11-2025 End: 02-10-4489Yirpcnzji Result EncounterCorey William DO Work Phone: NOMS External Department UnsolicitedStart: 01-11-2025 End: 29-92-3126Kmfnxysnv Result EncounterCorey William DO Work Phone: NOBL External Department UnsolicitedStart: 01-05-2025 End: 24-18-4815Ydvgoo flowsheetCorey William DO Work Phone: [facility] [place] [facility]YNStart: 01-05-2025 End: 11-16-8604Vxvqfx flowsheetCorey William DO Work Phone: [facility]BGYNStart: 01-05-2025 End: 24-97-2349Qeobtzqd flow sheetCorey William DO Work Phone: N[facility] [place] OBGYNComment on above:Third trimester ([facility]); 33 weeks gestation of ([facility]Start: 01-05-2025 End: 65-69-8784unuwibuejqKVRCA FAZIONot AvailableStart: 01-02-2025 End: 73-74-2937Xzumipwcn Result EncounterGeneric External Data ProviderNOMS External Department UnsolicitedStart: 01-02-2025 End: 96-24-3473Kjzukuwyc Result EncounterGeneric External Data ProviderNOMS External Department UnsolicitedStart: 12-26-2024 End: 19-47-7000Hvjmiuqtd Result EncounterGeneric External Data ProviderNOMS External Department UnsolicitedStart: 12-26-2024 End: 26-83-2528Zbluxzpnn Result EncounterGeneric External Data ProviderNOMS External Department UnsolicitedStart: 12-23-2024 End: 84-79-0766Qwsovc Cody Steen NP Work Phone: [facility] [place] [facility]BGYNStart: 12-23-2024 End: 20-58-0818Ivplbu Cody Steen NP Work Phone: [facility] [place] [facility]BGYNStart: 12-23-2024 End: 47-98-9379Plsnoeqp flow sheetLuna Steen [employer] Work Phone: NOMS [facility] OBGYNComment on above:Third trimester ([facility]); 31 weeks gestation of ([facility])Start: 12-23-2024 End: 15-20-5847ojqmktqmzjDVEAQBHB EBERLYNot AvailableStart: 12-09-2024 End: 56-26-5042Ftacrw flowsheetCorey William DO Work Phone: [facility] [place] [facility]BGYNStart: 12-09-2024 End: 78-53-0226Pdtqcb flowsheetCorey William DO Work Phone: [facility] [facility]BGYNStart: 12-09-2024 End: 28-57-8556Fibdmysl flow sheetCorey William DO Work Phone: N[facility] [place] OBGYNComment on above:Third trimester ([facility]); 29 weeks gestation of ([facility]); Yeast infectionStart: 12-09-2024 End: 65-99-8686sgvmnyfncyKAYES FAZIONot AvailableStart: 11-27-2024 End: 33-79-4547ljapxmfzfmBQRDJBellevue Hospitaltart: 11-25-2024 End: 69-17-6477Qliycb Cody Steen [employer] Work Phone: [facility] [place] [facility]BGYNStart: 11-25-2024 End: 13-21-5328Bydfef flowsRuss Steen [employer] Work Phone: [facility] [place] [facility]BGYNStart: 11-25-2024 End: 81-00-3414Jjqggmac flow sheetLuna Steen [employer] Work Phone: NOMS [facility] OBGYNComment on above:Second trimester ([facility]); 27 weeks gestation of ([facility]); Evan's diseaseStart: 11-25-2024 End: 09-74-6557xinocopvfpFNFZEMCL EBERLYNot AvailableStart: 11-24-2024 End: 18-13-6993Xnyxnnlvk Result EncounterGeneric External Data ProviderNOMS External Department UnsolicitedStart: 11-24-2024 End: 73-03-8964Ppwendubb Result EncounterGeneric External Data ProviderNOMS External Department UnsolicitedStart: 11-12-2024 End: 40-74-4610Phisvakup Result EncounterGeneric External Data ProviderNOMS External Department UnsolicitedStart: 11-12-2024 End: 13-47-4340Xujafkpjo Result EncounterGeneric External Data ProviderNOMS External Department UnsolicitedStart: 11-03-2024 End: 20-57-3676Lgotjjzez Result EncounterGeneric External Data ProviderNOMS External Department UnsolicitedStart: 11-03-2024 End: 74-37-7600Ritjculys Result EncounterGeneric External Data ProviderNOMS External Department UnsolicitedStart: 10-28-2024 End: 21-61-1264Aryyezl encounter procedurePretty ARELLANO Work Phone: NOMS HealthcareStart: 10-28-2024 End: 48-98-7716Ujnqvhpd flow Arsenio ARELLANO Work Phone: N[facility] [place] OBGYNComment on above:Second trimester ([facility]); 23 weeks gestation of ([facility]); Diabetes mellitus screening; STD exposure; Well woman exam with routine gynecological exam; Heart palpitationsStart: 10-28-2024 End: 75-37-1662bbtwevruvrGNO RAMEYNot AvailableStart: 10-28-2024 End: 23-23-8387Txqdeq Herson ARELLANO Work Phone: noMS [place] [facility]BGYNStart: 10-28-2024 End: 11-63-8919Anevvk Herson ARELLANO Work Phone: [facility] [place] [facility]BGYNStart: 10-28-2024 End: 12-58-6447Ytjomwopa Result EncounterGeneric External Data ProviderNOMS External Department UnsolicitedStart: 10-28-2024 End: 82-98-1058Bajprbfc Result EncounterKrselene Enio [employer] Work Phone: noms External Department UnsolicitedStart: 10-06-2024 End: 57-12-5908Lzoupiutv Result EncounterCorey William DO Work Phone: noms External Department UnsolicitedStart: 10-06-2024 End: 27-50-0458Yphuklwtz Result EncounterCorey William DO Work Phone: NOBT External Department UnsolicitedStart: 09-30-2024 End: 63-96-6677Rckbyjpj flow sheetCorey William DO Work Phone: noms BCP OBComment on above:19 weeks gestation of ([facility]); Second trimester ([facility])Start: 09-30-2024 End: 37-16-4133bzbnfhzxzgQYQWH FAZIONot AvailableStart: 09-28-2024 End: 01-73-9837Pvvpgwpje Result EncounterGeneric External Data ProviderNOMS External Department UnsolicitedStart: 09-28-2024 End: 60-53-7173Pysuogalo Result EncounterGeneric External Data ProviderNOMS External Department UnsolicitedStart: 09-02-2024 End: 88-13-4697Rkkpuvtw flow Arsenio ARELLANO Work Phone: noms BCP OBComment on above:Second trimester ([facility]); 15 weeks gestation of ([facility]); Screening, , for anatomic survey ([facility])Start: 09-02-2024 End: 90-75-8310utwqwnwomoAET RAMEYNot AvailableStart: 09-02-2024 End: 55-70-0335Ovrgiv Herson ARELLANO Work Phone: NOMS BCP OBStart: 09-02-2024 End: 32-27-6548Qamteu Herson ARELLANO Work Phone: NOMS BCP OBStart: 08-31-2024 End: 90-10-3715Ijihqyiio Result EncounterCorey William DO Work Phone: noms External Department UnsolicitedStart: 08-31-2024 End: 67-18-6935Oimlkdcfd Result EncounterCorey William DO Work Phone: noms External Department UnsolicitedStart: 08-05-2024 End: 80-36-6369Npfhpm flowsheetCorey William DO Work Phone: noms BCP OBStart: 08-05-2024 End: 42-75-3055Stdzjz flowsheetCorey William DO Work Phone: noms BCP OBStart: 08-05-2024 End: 84-82-9029Kwukryes flow sheetCorey William DO Work Phone: noms BCP OBComment on above:First trimester ; 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 ; 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[facility])Start: 08-05-2024 End: 25-55-3697yrbeirxtaqUINNO FAZIONot AvailableStart: 07-18-2024 End: 11-24-0841Mxxeeuyrm Result EncounterGeneric External Data ProviderNOMS External Department UnsolicitedStart: 07-18-2024 End: 85-99-9303Aqjyqefqi Result EncounterGeneric External Data ProviderNOMS External Department UnsolicitedStart: 07-16-2024 End: 39-40-6064Azqqcd outpatient visit 5 minutesNoms Bcp Ob William NurseNOMS BCP OBComment on above:GA: 5j3eObboc: 07-16-2024 End: 97-54-7321tpnqndnuobROGYX FAZIONot AvailableStart: 02-26-2024 End: 94-35-6516Momisex encounter procedureDavid A Pocos DO Work Phone: noms NB ORTHOComment on above:S/P reconstruction of ACL of left knee using bone-patellar tendon-bone autograft (Primary Dx)Start: 02-26-2024 End: 71-70-7425fibslfnbpcKVGAY A POCOSNot AvailableStart: 02-19-2024 End: 83-55-4633Gyfgmj outpatient visit 25 minutesEdjay Payne MD Work Phone: NOMS CI FM 100Comment on above:Subclinical hypothyroidism (CMS/HCC) (Primary Dx); 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CMS/HCC); Cigarette smoker; Non morbid obesity due to excess calories; Postural orthostatic tachycardia syndrome (POTS); Abnormal bleeding in menstrual cycleStart: 02-19-2024 End: 57-48-5532drmnmdzjisRDZAXYCristal Parisi AvailableStart: 02-19-2024 End: 07-78-4379Jzmhyh Rodriguez Payne MD Work Phone: NOMS CI FM 100Start: 02-19-2024 End: 19-14-9109Rbgkka Rodriguez Payne MD Work Phone: NOMS CI FM 100Start: 12-27-2023 End: 08-57-9557lzprncosiwBvir J Spriggs PT Work Phone: NOMS FB PTComment on above:Acute pain of left knee (Primary Dx); Status post arthroscopic reconstruction of anterior cruciate ligament of left knee using quadricepstendon autograftStart: 12-27-2023 End: 62-49-7788Yhcthd Za Nagy PT Work Phone: NOMS FB PTStart: 12-27-2023 End: 49-27-8191Nsopbu Za Nagy PT Work Phone: NOUN FB PTStart: 12-24-2023 End: 11-85-2672dmuwhtfncyCyvpzbzu Wright [employer] Work Phone: NOMS FB PTComment on above:Acute pain of left knee (Primary Dx); Status post arthroscopic reconstruction of anterior cruciate ligament of left knee using quadricepstendon autograftStart: 12-24-2023 End: 83-67-1510Cbbwpm MGB BiopharmakearaDotspinmaribel Vieira [employer] Work Phone: NOMS FB PTStart: 12-24-2023 End: 50-33-5828Sbxunw MGB BiopharmakearaDotspinmaribel Vieira [employer] Work Phone: NOLU FB PTStart: 12-17-2023 End: 84-34-3877lpudvnbjbzBkqt Pari Lilo PT Work Phone: NOMS FB PTComment on above:Acute pain of left knee (Primary Dx); Status post arthroscopic reconstruction of anterior cruciate ligament of left knee using quadricepstendon autograftStart: 12-17-2023 End: 12-33-4862Usoqns flowsheetKystuart Yañez Lilo PT Work Phone: NOMS FB PTStart: 12-17-2023 End: 06-77-7692Hhshxi Za Yañez Lilo PT Work Phone: NOAA FB PTStart: 12-09-2023 End: 13-18-9929Znuukl Isabel Schwartz DO Work Phone: NOMS SWS ORTHOAOStart: 12-09-2023 End: 96-85-8356Iligjx Isabel Schwartz DO Work Phone: [phone] SWS ORTHOAOStart: 12-09-2023 End: 16-91-7187Ywjfevx encounter Hans Schwartz DO Work Phone: NOMS SWS ORTHOAOComment on above:Left knee injury, initial encounter (Primary Dx)Start: 12-03-2023 End: 01-41-3172keprcijnajIfaprnuw Vieira [employer] Work Phone: NOMS FB PTComment on above:Acute pain of left knee (Primary Dx); Status post arthroscopic reconstruction of anterior cruciate ligament of left knee using quadricepstendon autograftStart: 12-03-2023 End: 65-02-9717Wcopbf Nikita Vieira [employer] Work Phone: NOMS FB PTStart: 12-03-2023 End: 34-19-5417Npufjb Nikita Vieira [employer] Work Phone: NOMS FB PTStart: 11-19-2023 End: 05-83-2037rtaqwafdvqKqcuyg Tattersall PTANOMS FB PTComment on above:Acute pain of left knee (Primary Dx); Status post arthroscopic reconstruction of anterior cruciate ligament of left knee using quadricepstendon autograftStart: 11-19-2023 End: 81-36-1972Zeawes flowsheetJennifer Tattersall PTANOMS FB PTStart: 11-19-2023 End: 98-56-5633Fhrkoy flowsheetMariah Tattersall PTANOMS FB PTStart: 11-12-2023 End: 68-34-4277uudnnlyksoXqjqrjkq Wright [employer] Work Phone: noms FB PTComment on above:Acute pain of left knee (Primary Dx); Status post arthroscopic reconstruction of anterior cruciate ligament of left knee using quadricepstendon autograftStart: 11-12-2023 End: 17-60-1331Ljhuxc Nikita Vieira [employer] Work Phone: noms FB PTStart: 11-12-2023 End: 14-93-2142Wjybmr MGB BiopharmakearaClear Story Systemsbrian Vieira [employer] Work Phone: noMS FB PTStart: 82-34-3877Vys-patient / Non-visitMD Rosalie Payne Work Phone: [facility] Work Phone: Start: 09-02-2023 End: 60-98-3296Lqitwbhfk to same day surgery centerMD Rosalie Payne Work Phone: [facility] Work Phone: Start: 09-02-2023 End: 52-13-4271fxojusesgdSC Rosalie Payne Work Phone: [facility] Work Phone: Start: 07-25-2023 End: 39-77-3493fwaqorjqesJlzsbwgqrAdams [facility] Work Phone: Start: 07-25-2023 End: 67-97-5503Eihckuk encounter procedureSophie Physician Group[facility] Work Phone: Start: 04-23-2023 End: 04-78-5402ojgohjrikbIuozk A PocosFacility:FTMCStart: 89-24-3538Xntba Jennifer Nagy PT Work Phone: noms FB PTStart: 04-03-2023 End: 34-10-2025yvjpqezpmcKkwjl A PocosFacility:FTMCStart: 04-03-2023 End: 45-23-2882Scxrdtg encounter procedureDavid A Pocos [facility] Start: 04-01-2023 End: 20-93-7226hmlmupgyrdQglcqt Kristine Other [employer] Other Start: 73-15-6376Izhpge outpatient visit 15 minutes Destinee GrobFPG Urgent Care ClydeStart: 05-01-2022 End: 26-61-3007bxomtpeuggDK DOC WILLIAM .Facility:K1Jbgei: 08-21-2021 End: 87-48-2771mrdpwzrjfkHdueok Dymond Other nort [employer] Other Start: 04-43-7660Xucysf outpatient visit 15 minutes Carlie ThomasFPG Urgent Care ClydeStart: 07-26-2021 End: 64-32-0561rrqcwaqhglXK DOC WILLIAM .Facility:R7Mupkn: 98-07-8337Esvvbpakj department patient visitARTIS YODERSycamore Medical Centertart: 05-24-2021 End: 47-18-5411Rncirquml department patient visitArtis Yoder DO Work Phone: [facility] EDComment on above:Contusion of left knee, initial encounter (Primary Dx)Start: 05-11-2021 End: 37-80-6676bcwxsbrfibFjghslaty Breault Other [facility] [employer] Other Start: 73-86-1600Kutymn outpatient visit 15 minutes Adriana EvangelistaFPG Urgent Care ClydeStart: 05-01-2021(URG) Urgent Care Visit Carlie ThomasFPG Urgent Care ClydeStart: 05-01-2021 End: 33-75-6932aihosihahiRyuisn Dymond Other nort [employer] Other Start: 04-07-2021 End: 27-65-6426jobxswiqckIgsmxc Ashley Other [facility] [employer] Other Start: 77-75-6622Ezdcsg outpatient visit 15 minutes Sandeep RamirezFPG Urgent Care ClydeStart: 12-14-2020 End: 89-09-7277Xuegxnpyf department patient visitCIPRIAN RANDChillicothe Hospitaltart: 12-14-2020 End: 84-39-5468Boegnwcpl department patient visitCiprian Frankie MURRIETA Work Phone: [facility] EDComment on above:Tailbone injury, initial encounter (Primary Dx)Start: 09-19-2020 End: 18-85-0720Qojjckzqk department patient visitVeterans Health Administration EDComment on above:Closed head injury, initial encounter (Primary Dx)Start: 07-15-2017 End: 50-32-1125BkjumysblaQGRLRX P [facility]CC[facility]: 05-15-2017 End: 60-20-1410RpuafqefgyGGSLVN P VARGASCkettering health washing[facility] townshipand [facility]: 04-30-2017 End: 73-71-7143LchjmqsmtdHSFXUX P VARGASCkettering health washing[facility] townshipand [facility]: 04-29-2017 End: 72-51-8839WoejftqnijCKRURC P VARGASCCleveland [facility]: 03-13-2017 End: 89-86-0298NtjxcyjurpGAOXB MCKENZIE PABLOFacility:[facility] Procedures DateProcedureProcedure DetailPerforming ClinicianStart: 27-25-2625KR OB BPP W NON-STRESSCorey William DO Work Phone: Start: 38-10-7229TNK THYROID STIM HORMONECorey William DO Work Phone: Start: 76-13-0197JK OB BPP W NON-STRESSCorey William DO Work Phone: Start: 20-59-7767Jnagw dip stick/tablet rgnt non-auto w/o micrscpAmy Dm ARELLANO Work Phone: Start: 93-24-4873GK OB BPP W NON-STRESSCorey William DO Work Phone: Start: 65-65-6444Ztqqf dip stick/tablet rgnt non-auto w/o micrscpCorey William DO Work Phone: Start: 35-12-4845XY OB BPP W NON-STRESSGeneric External Data ProviderStart: 36-58-1871SF OB GROWTHGeneric External Data ProviderStart: 29-09-1360UI OB BPP W NON-STRESSGeneric External Data ProviderStart: 73-17-6224ZHZ THYROID STIM HORMONECorey William DO Work Phone: Start: 51-85-7308Tswho dip stick/tablet rgnt non-auto w/o micrscpKristina Enio [employer] Work Phone: Start: 13-95-9413Khavo dip stick/tablet rgnt non-auto w/o micrscpCorey William DO Work Phone: Start: 52-14-7584Bhxtp dip stick/tablet rgnt non-auto w/o micrscpKristina Enio [employer] Work Phone: Start: 94-87-4956BK ECHO DOPPLER COMPLETEGeneric External Data ProviderStart: 02-59-5548JDZ 12-LEADGeneric External Data Provider Start: 11-75-6110VJP CBC WITH AUTO DIFFKristina Enio [employer] Work Phone: Start: 14-11-8705IVRBOTTYU VAGINITIS (HTRX)Luna Enio [employer] Work Phone: Start: 47-79-5284Cbztp dip stick/tablet rgnt non-auto w/o micrscpLuna Conraderly [employer] Work Phone: Start: 95-86-7029PRM,APTIMA HPV,AGE GDLNAmy Dm PA Work Phone: Start: 25-96-0397KB OB CERVICAL LENGTHCorey William DO Work Phone: Start: 19-81-3219Jhcgh dip stick/tablet rgnt non-auto w/o micrscpCorey William DO Work Phone: Start: 35-69-6469GOF THYROID STIM HORMONECorey William DO Work Phone: Start: 76-49-9489Ehhjp dip stick/tablet rgnt non-auto w/o micrscpAmy Dm ARELLANO Work Phone: Start: 41-57-1669CGL THYROID STIM HORMONEGeneric External Data ProviderStart: 99-99-4687Xnpob dip stick/tablet rgnt non-auto w/o micrscpCorey William DO Work Phone: Start: 85-45-4953JIG TESTCorey William DO Work Phone: Start: 09-78-0765PQY DRUG SCREEN RAPID (URINE)Generic External Data ProviderStart: 67-13-3118Ljwuz dip stick/tablet rgnt non-auto w/o micrscpCorey William DO Work Phone: Start: 04-37-9451Xieyfsfc blood count with white cell differential, automatedRosalie Payne MD Work Phone: Start: 89-35-8760Xgnchhstrezqj metabolic panelRosalie Payne MD Work Phone: Start: 27-31-9965Okceksmmilezy antibodyEdjay Payne MD Work Phone: Start: 16-13-7830IzzalwjixbdyvufdvfhyibspoiFS Rosalie Payne Work Phone: Start: 25-99-1047Kkvyzot of reconstruction of anterior cruciate ligament tearStatus post arthroscopic reconstruction of anterior cruciate ligament of left knee using quadricepstendon autograftGretchen Vieira [employer] Work Phone: Start: 49-31-2104Rqilxjnyts examination knee 3 views Artis Yoder DO Work Phone: Start: 74-57-7841Tykaf sacrum & coccyx minimum 2 views David Dominguez MD Work Phone: Start: 96-00-0463Lv head/brain w/o contrast material Luis Carlos Fragoso [...] of left knee using quadricepstendon autograftGretchen Vieira [employer] Work Phone: History of reconstruction of anterior cruciate ligament tearStatus post arthroscopic reconstruction of anterior cruciate ligament of left knee using quadricepstendon autograftKyle J Lilo PT Work Phone: History of reconstruction of anterior cruciate ligament tearStatus post arthroscopic reconstruction of anterior cruciate ligament of left knee using quadricepstendon autograftGretchen Vieira [employer] Work Phone: History of reconstruction of anterior cruciate ligament tearStatus post arthroscopic reconstruction of anterior cruciate ligament of left knee using quadricepstendon autograftGretchen Vieira [employer] Work Phone: History of reconstruction of anterior cruciate ligament tearStatus post arthroscopic reconstruction of anterior cruciate ligament of left knee using quadricepstendon autograftMariah Tattersall [employer] Laparoscopic excision of cyst of left ovaryDavid Pocos Plan of Treatment DateCare ActivityDetailAuthorStart: 99-70-6533Ilgksceyk vaccinationInfluenza Vaccine (#1)[facility]OMS HealthcareComment on above:Postponed from 11/16/2024 (Patient Refused)Start: 01-27-2025 End: 27-51-7346Jthjszb encounter glrjioeiv87/12/2025 1:40 PM EST Routine [facility] [address] [facility] [place] [id number] Doc Thomas DO [address] [place] [address] [facility] [place] [facility]Start: 01-20-2025 End: 19-68-9735Vufgtyd encounter procedureNOMS [place] OBGYNComment on above: ArrivedStart: 01-05-2025 End: 92-79-4651Wppqkvp encounter procedureNOMS [place] OBGYNComment on above: ArrivedStart: 12-23-2024 End: 45-31-6215Vzfhart encounter procedureNOMS [place] OBGYNComment on above: ArrivedStart: 12-23-2024 End: 42-06-7237Whhpvtyusjjb / ancillary services jsdozegpon17/08/2025 1:30 PM EDT Ancillary Procedure [facility] [address] [facility] [place] [id number] [facility] [place] [facility]BGYNStart: 12-09-2024 End: 85-80-4022Fkspklx encounter procedureNOMS Alba OBGYNComment on above: ArrivedStart: 11-25-2024 End: [id number] biophysical profile w non stress testUS biophysical profile w non stress test Imaging Routine 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), Expires: 05/25/2025[facility] Work Phone: comment on above:Expected: 11/25/2024 (Approximate), Expires: 05/25/2025Start: 11-25-2024 End: 37-14-5863KD for pregnancyUS OB follow up transabdominal approach Imaging Routine Evan's disease Expected: 11/25/2024, Expires: 03/27/2025[facility] HealthcareComment on above:Expected: 11/25/2024, Expires: 03/27/2025Start: 11-25-2024 End: 40-76-4887Hfisass encounter procedureNOMS [facility]ba OBGYNComment on above: ArrivedStart: 52-87-0220REZKR-19 Vaccine ()COVID-19 Vaccine ()[facility] HealthcareStart: 54-85-8003Vubrhqsqa vaccinationNOMS HealthcareStart: 10-28-2024 End: 56-41-9500Wqmntto encounter procedureNOMS BCP OBComment on above:Arrived Start: 10-28-2024 End: lead ECGECG 12 lead unit performed ECG Routine Heart palpitations Expected: 10/28/2024 (Approximate), Expires: 10/28/2025NOCT HealthcareComment on above:Expected: 10/28/2024 (Approximate), Expires: 10/28/2025Start: 10-28-2024 End: 34-38-5768THA panel - Blood by Automated countCBC Lab Routine Diabetes mellitus screening Expected: 10/28/2024 (Approximate), Expires: 10/28/2025[facility] Healthcare Work Phone: comment on above:Expected: 10/28/2024 (Approximate), Expires: 10/28/2025Start: 10-28-2024 End: 92-29-6504Cprpbbgrvgqrpz 2D completeEchocardiogram 2D complete Echocardiography Routine Heart palpitations Expected: 10/28/2024 (Approximate), Expires: 10/28/2026NOCT HealthcareComment on above:Expected: 10/28/2024 (Approximate), Expires: 10/28/2026Start: 10-28-2024 End: 30-17-7087Xrmyyjotpxq of glucose 1 hour after glucose challenge for glucose tolerance testGlucose tolerance, 1 hour Lab Routine Diabetes mellitus screening Expected: 10/28/2024 (Approximate), Expires: 10/28/2025NOMS HealthcareComment on above:Expected: 10/28/2024 (Approximate), Expires: 10/28/2025Start: 09-30-2024 End: 47-41-6871Dwxqqoc encounter zkrodtdgx29/16/2025 3:40 PM EDT Routine [facility] [address] [facility] [place] [phone] Doc Thomas, DO [address] [place], [place] [address] [place], [place] [id number] [facility] BCP OBStart: 09-30-2024 End: 56-09-3432Qokhtnimwjry / ancillary services /16/2025 2:30 PM EDT Ancillary Procedure [facility] OB [address] [place] [address] [facility] BCP OBStart: 09-02-2024 End: 59-11-8684Mdrhfhl encounter procedureNOCT BCP OBComment on above:Arrived Start: 09-02-2024 End: 09-59-5462Zgzrk fetoprotein, maternalAlpha fetoprotein, maternal Lab Routine Second trimester ([facility]) Expected: 09/02/2024 (Approximate), Expires: 11/02/2024NOCT HealthcareComment on above:Expected: 09/02/2024 (Approximate), Expires: 11/02/2024Start: 09-02-2024 End: 98-36-7134FH for pregnancyUS OB 14+ weeks anatomy scan Imaging Routine Screening, , for anatomic survey ([facility]) Expected: 09/02/2024, Expires: 12/03/2024[facility] Healthcare Work Phone: comment on above:Expected: 09/02/2024, Expires: 12/03/2024Start: 08-05-2024 End: 56-09-5940Vhqsswd encounter procedureNOCT BCP OBComment on above:Arrived Start: 07-16-2024 End: 90-15-5238OBZ/RhABO/Rh Lab Routine Missed menses , unspecified gestational age Expected: 07/16/2024 (Approximate), Expires: 07/16/2025NOCT HealthcareComment on above:Expected: 07/16/2024 (Approximate), Expires: 07/16/2025Start: 07-16-2024 End: 02-47-0846Avday type and Indirect antibody screen panel - BloodType and screen Lab Routine Missed menses , unspecified gestational age Expected: 07/16/2024 (Approximate), Expires: 07/16/2025NOCT HealthcareComment on above:Expected: 07/16/2024 (Approximate), Expires: 07/16/2025Start: 07-16-2024 End: 04-17-0816Urtnz of abuse panel - Urine by Screen methodRapid drug screen, urine Lab Routine , unspecified gestational age Encounter for supervision of normal first in first trimester Expected: 07/16/2024 (Approximate), Expires: 07/16/2025NOCT HealthcareComment on above:Expected: 07/16/2024 (Approximate), Expires: 07/16/2025Start: 07-10-2024 End: 98-35-8845TS Pelvis transvaginalUS OB transvaginal Imaging Routine Missed menses Expected: 07/10/2024, Expires: 10/09/2024[facility] Work Phone: comment on above:Expected: 07/10/2024, Expires: 10/09/2024Start: 02-21-2024 End: 49-73-8038Ostvufk encounter hvobhlmuo59/06/2024 8:00 AM EST Office Visit [facility] [address] [place] [address] Myron Marroquin DO [address] [place] [address] [facility] SWS ORTHOAOStart: 02-19-2024 End: 76-33-3172Migybwx encounter /04/2024 3:30 PM EST Office Visit [facility] CI FM 100 [address] [facility] [address] [place] [address] Rosalie Payne MD 112 [facility] 100 [place] [address] (Fax) 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CMS/HCC); Chronic fatigue; Cigarette smoker; Non morbid obesity due to excess caloriesNOMS CI FM 100Comment on above: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CMS/HCC); Chronic fatigue; Cigarette smoker; Non morbid obesity due to excess caloriesStart: 02-19-2024 End: 10-26-6402Qutaxhm, randomInsulin, random Lab Routine Non morbid obesity due to excess calories Postural orthostatic tachycardia syndrome (POTS) Expected: 02/19/2024 (Approximate), Expires: 02/18/2025[facility] Healthcare Work Phone: Comment on above:Expected: 02/19/2024 (Approximate), Expires: 02/18/2025Start: 01-17-2024 End: 94-73-8092sgpzdcjohe83/01/2024 2:30 PM EDT Treatment [facility] JESENIA PT [address] [place] [phone] Stefano Nagy, PT [address] [place] [address] NOMS FB PTStart: 01-14-2024 End: 26-46-5025ytkxdyygjf34/29/2024 3:30 PM EDT Treatment [facility] FB PT [address] [place] [address] Nereyda Vieira, [employer] [address] [place] [address] NOMS FB PTStart: 01-10-2024 End: 12-79-1154jktgwuvvbr54/25/2024 2:30 PM EDT Treatment [facility] FB PT [address] [place] [phone] Stefano Nagy, PT [address] [place] [address] NOMS FB PTStart: 01-07-2024 End: 30-43-2587bpnhrgoprd69/22/2024 3:30 PM EDT Treatment [facility] FB PT [address] [place] [address] Stefano Nagy, PT [address] [place] [address] NOMS FB PTStart: 01-03-2024 End: 68-50-0675flavlpfeyn24/18/2024 2:30 PM EDT Treatment [facility] FB PT [address] [place] [phone] Stefano Nagy, PT [address] [place] [address] NOMS FB PTStart: 12-31-2023 End: 95-15-5857qxyyatzggz22/15/2024 3:30 PM EDT Treatment [facility] FB PT [address] [place] [phone] Jennifer Dozier PTANOMS FB PTStart: 12-27-2023 End: 73-87-8932xmecrpsukrFIPP FB PTComment on above:ArrivedStart: 12-24-2023 End: 18-58-7468onbzxovfor85/08/2024 3:00 PM EDT Treatment [facility] FB PT [address] [place] [address] Nereyda Vieira, [employer] [address] [place] [address] NOMS FB PTStart: 12-17-2023 End: 41-51-3982lneoesdmqq20/01/2024 3:00 PM EDT Treatment [facility] FB PT [address] [place] [phone] Stefano Nagy, PT [address] [facility] [address] NOMS FB PTStart: 12-09-2023 End: 46-29-9533Umwrwyp encounter procedureNOMS [facility] ORTHOAOComment on above: ArrivedStart: 12-03-2023 End: 39-60-9403lzuzpkknrv97/17/2024 3:30 PM EDT Treatment [facility] FB PT [address] [facility] [address] Angela Vieiratchen, [employer] [address] [place] [address] ArrivedNOMS FB PT Comment on above:ArrivedStart: 11-19-2023 End: 72-84-9151xynkbuvawtKESB FB PTComment on above:Acute pain of left knee (Primary Dx); Status post arthroscopic reconstruction of anterior cruciate ligament of left knee using quadricepstendon autograftStart: 94-45-9935Xaeyobvdd vaccination Influenza Vaccine (#1)[facility] HealthcareStart: 49-65-6622OxdtuvptzKettering Health Hamiltontart: 05-07-2023 End: 90-06-4052Oataxti encounter hwiafiadm73/20/2024 11:10 AM EST Office Visit [facility] [address] [place] [phone] Doc Thomas, DO [address] [place] [address] NOMS BCP OBStart: 05-03-2023 End: 06-99-3569Ujslmip encounter /16/2024 11:00 AM EST Office Visit [facility] [address] [place] [address] Myron Marroquin, DO [address] [place] [address] N[facility] SWS ORTHOAOStart: 04-23-2023 End: 15-99-3923Zwfcdgp encounter ceectvzos80/06/2024 8:00 AM EST Procedure Visit [facility] EXT Myron Huerta, DO [address] [place] [address] NOMS EXT DEPStart: 04-22-2023 End: 28-69-3486zpxaxlvrjf17/05/2024 2:30 PM EST Evaluation [facility] J[facility] PT [address] [place] [address] Stefano Nagy, PT [address] [place] [address] NOMS FB PTStart: 49-07-1543Uzriutztf vaccinationInfluenza Vaccine (#1)[facility] HospitalStart: 93-17-5342LQdP/Tdap/Td vaccine (5 - Td or Tdap)DTaP/Tdap/Td vaccine (5 - Td or Tdap)[facility]: 32-52-0268Aosbdjeft vaccinationFlu vaccine (#1)[facility] HospitalStart: 00-29-1456Kquwhmbsu for malignant neoplasm of cervixShelby Memorial Hospital Health Start: 94-53-1298RLpM/Tdap/Td vaccine (1 - Tdap)DTaP/Tdap/Td vaccine (1 - Tdap) [facility] Work Phone: start: 41-52-2633Smpjhwucizgs Vaccine: Pediatrics (0 to 5 Years) and At-Risk Patients (6 to 64 Years) (1 of 2 - PCV)Pneumococcal Vaccine: Pediatrics (0 to 5 Years) and At-Risk Patients (6 to 64 Years) (1 of 2 - PCV)[facility] HospitalStart: 84-10-8492Ozuwuxbay for Chlamydia trachomatis Chlamydia screenShelby Memorial Hospital HealthStart: 99-46-9242PYB screeningHIV screenShelby Memorial Hospital Health Start: 57-92-2076Hycjebdno vaccine (2 of 2 - 2-dose childhood series)Varicella vaccine (2 of 2 - 2-dose childhood series)[facility] HospitalStart: 37-28-7746RPASE-19 Vaccine (1)COVID-19 Vaccine (1)[facility] Phone: start: 20-90-6349Mnaohsndao ScreenDepression Screen [facility]: 09-72-9410LIG vaccine (1 - 2-dose series)HPV vaccine (1 - 2- dose series)[facility]: 28-27-3051GMIRF-19 Vaccine (1)COVID-19 Vaccine (1)[facility]: 64-31-0812Moeqfljvo vaccine (1 of 2 - 2-dose childhood series)Varicella vaccine (1 of 2 - 2-dose childhood series)[facility] Phone: start: 71-91-6863Syzdqlhpe C screeningHepatitis C screenMercy HealthBacteria identified in Urine by CultureUrine culture Microbiology Routine Missed menses Ordered: 07/16/2024[facility] HealthcareComment on above:Ordered: 07/16/2024BC W Auto Differential panel - BloodCBC and differential Lab Routine Missed menses , unspecified gestational age Ordered: 07/16/2024[facility] HealthcareComment on above:Ordered: 07/16/2024HLAMYDIA TRACHOMATIS (GENITO/STI)CHLAMYDIA TRACHOMATIS (GENITO/STI) Lab Routine STD exposure Ordered: 10/28/2024[facility] HealthcareComment on above:Ordered: 10/28/2024 Cytology Cervical or vaginal smear or scraping studyPap Smear Pathology and Cytology Routine Well woman exam with routine gynecological exam Ordered: [facility] HealthcareComment on above:Ordered: 10/28/2024Hemoglobin A1c/Hemoglobin.total in BloodHemoglobin A1c Lab Routine Missed menses , unspecified gestational age Ordered: 07/16/2024[facility] HealthcareComment on above: Ordered: 07/16/2024Hepatitis B virus surface Ag [Presence] in Serum or Plasma by ImmunoassayHepatitis B surface antigen Lab Routine Missed menses , unspecified gestational age Ordered: 07/16/2024[facility] HealthcareComment on above: Ordered: 07/16/2024Hepatitis C virus Ab [Presence] in Serum or Plasma by ImmunoassayHepatitis C antibody Lab Routine Missed menses , unspecified gestational age Ordered: 07/16/2024[facility] HealthcareComment on above:Ordered: 07/16/2024HIV-1/HIV-2 antigen/antibody combination immunoassayHIV-1 and HIV-2 antibodies Lab Routine Missed menses , unspecified gestational age Ordered: 07/16/2024[facility] HealthcareComment on above:Ordered: 07/16/2024Neisseria gonorrhoeae DNA [Presence] in Unspecified specimen by QUEENIE with probe detection Neisseria gonorrhea DNA probe, direct Lab Routine STD exposure Ordered: 10/28/2024[facility] HealthcareComment on above:Ordered: 10/28/2024Patient Education Hiatal hernia Hemorrhoids Gastritis Know your [facility] Work Phone: Reagin Ab [Presence] in Serum by RPRRPR Lab Routine Missed menses , unspecified gestational age Ordered: 07/16/2024[facility] HealthcareComment on above:Ordered: 07/16/2024Rubella antibody, IgGRubella antibody, IgG Lab Routine Missed menses , unspecified gestational age Ordered: 07/16/2024[facility] HealthcareComment on above:Ordered: 07/16/2024 SURESWAB(R) ADVANCED VAGINITIS PLUS, TMASURESWAB(R) ADVANCED VAGINITIS PLUS, TMA Pathology and Cytology Routine STD exposure Ordered: 10/28/2024[facility] Healthcare Comment on above:Ordered: 10/28/2024 End: 07-50-9068Ajznzealbrm [Units/volume] in Serum or PlasmaTSH Lab Routine 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CMS/HCC) n1jxgih for 6 Occurrences starting 08/05/2024 until 08/05/2025[facility] Healthcare Work Phone: comment on above:p0reloy for 6 Occurrences starting 08/05/2024 until 08/05/2025US Pelvis transvaginalUS OB transvaginal Imaging Routine Missed menses 07/16/2024 1:59 [facility] Immunizations Immunization DateImmunizationNotesCare NswdiquvDawhfijy97-23-1142hybtgwook B vaccine, adult dosageKyle Lilo PT Work Phone: [facility] HospitalEzcozpwyju47-89-3606cvvuerywdbapk oligosaccharide (groups A, C, Y and W-135) diphtheria toxoid conjugate vaccine (MCV4O)Stefano Lilo PT Work Phone: [facility] HospitalFgareegcys94-15-4704mgmqnlbnd A vaccine, pediatric/adolescent dosage, 2 dose scheduleKyle Lilo PT Work Phone: [facility] HospitalMaposoponf81-21-6637kihxvzfah A vaccine, pediatric/adolescent dosage, 2 dose scheduleKyle Lilo PT Work Phone: [phone] [place], [place] [address]Madrqhxtpz12-69-9736nckitke toxoid, reduced diphtheria toxoid, and acellular pertussis vaccine, adsorbedKyle Lilo PT Work Phone: [facility] HospitalPsksjorocr04-96-7598djzzrbmci virus vaccineKyle Lilo PT Work Phone: [facility] HospitalGiwhrbymcv91-66-7698nkjxnirwgib influenzae type b conjugate and Hepatitis B vaccineKyle Lilo PT Work Phone: [facility] HospitalEgsfheuefd38-57-0288pstabohdwnq influenzae type b vaccine, HbOC conjugateKyle Lilo PT Work Phone: [facility] HospitalFbjzmlqrig71-63-3118jjbsxmbrw B vaccine, pediatric or pediatric/adolescent dosageKyle Lilo PT Work Phone: [facility] HospitalUnhhsmvzvb38-88-8151zyipens, mumps and rubella virus vaccineKyle Lilo PT Work Phone: [facility] HospitalBqguglpyuj00-63-3705ibqxzfhxyj vaccine, inactivatedKyle Lilo PT Work Phone: [facility] HospitalFatcwaaylq00-22-5422RNwF-Ifjqiqzqrkx influenzae type b conjugate vaccineKyle Lilo PT Work Phone: [facility] HospitalOqilneetxi88-65-9329nddeqmepyqby conjugate vaccine, 7 valentKyle Lilo PT Work Phone: [facility] HospitalVyejqtlijp87-55-8920amomqzmqsc, tetanus toxoids and acellular pertussis vaccine, Haemophilus influenzae type b conjugate, and poliovirus vaccine, inactivated (ELiA-Qxg-WGV)Stefano Lilo PT Work Phone: [facility] HospitalFjlueksiqp88-85-7033wpznqoholx, tetanus toxoids and acellular pertussis vaccine, Haemophilus influenzae type b conjugate, and poliovirus vaccine, inactivated (VMuJ-Jch-ULL)Stefano Nagy PT Work Phone: noSullivan County Memorial HospitalYmriowdydh41-65-0309rtrlvsnir B vaccine, pediatric or pediatric/adolescent dosageKystuart Nagy PT Work Phone: noSullivan County Memorial HospitalRxuepohobj90-11-9295gffgqnmnq B vaccine, pediatric or pediatric/adolescent dosageKystuart Nagy PT Work Phone: [facility] Payers DatePayer CategoryPayerPolicy [id number] Cross Blue [id number]47.308969.01225-35-8931 Unknown1.2.840.321268.1.13.693.2.[id number] 1.2.840.750473.1.13.239.2.7.3.110728.16205-43-9702Ucdbawg Health Insurance [id number] 2.16.840.1.146726.3.579.2. [id number] 2.16.840.1.788715.3.57[id number] 2.16.840.1.807975.3.57[id number] 2.16.840.1.256471.3.57[id number] 2.16.840.1.718487.3.57[id number] 2.16840.1.153341.3.57[id number] 2.16840.1.286076.3.57[id number] 2.16840.1.850333.3.579.2.1[id number] 2.16840.1.611467.3.579.2.803370-59-5869Kmcoolm87015433 2.16840.1.549822.3.579.2.7[id number] 2.840.1.603670.3.579.[id number] 2.840.1.050918.3.579.2.[id number] 2.0.1.559074.3.579.2.068187-99-1687Pjtjzbw86087733 2.840.1.902713.3.579.2.239553-86-2161Ysdgejd24317295 2.840.1.531560.3.579.2.791735-92-9357Ldkrdyd51648737 2.840.1.416828.3.579.2.215479-90-6880Yfpdjfj8540271 2.16840.1.271762.3.579.[id number] 2.16840.1.591615.3.57[id number] 2.16840.1.638148.3.579.2.718666-42-2483Kutzycd7204850 2..840.1.618592.3.579.2.726610-23-2669Roopsqd3999132 2.16.840.1.610451.3.579.2.790850-69-7808Kfatmiq18609534393 2.0.1.436399.19 86-95-8258RyeywrfJ8QSS9723305Qpsj Cross Blue [id number] [id number] 2.0.1.233610.3.579.2.531 Social History DateTypeDetailFacilityStart: 09-19-2020 End: 95-10-5484Oswqzzj smoking status NHISNever smokerShelby Memorial Hospital [facility] Work Phone: start: 09-19-2020 End: 44-11-8949Anjtvsz use and exposureNever usedShelby Memorial Hospital PrintFuStart: 1999 Sex Assigned At BirthNot on [facility] [employer] Work Phone: exposure to SARS-CoV-2 (event)Not [facility] Start: 12-14-2020 End: 52-24-7783Ldmqujg intakeCurrent drinker of alcohol (finding)[facility] [employer] Work Phone: start: 10-24-4812Xqoryki CommentRareMkettering health hamilton [employer] Work Phone: start: 12-11-2022 End: 35-65-4534Bmi Assigned At [facility] HospitalTobaccoCurrent vaping or e-cigarette use Smokeless Tobacco Use:. VapingEast Ohio Regional HospitalTobacco smoking statusNo Smoking Status EnteredUC Healthtart: 02-09-2023 End: 85-51-9473Vsxyxkp smoking status NHISOccasional tobacco smokerNOCT HealthcareStart: 04-15-2023 End: 50-83-9388Ywxyfgy intakeEx-drinker (finding)[facility] HealthcareStart: 12-11-2022 End: 51-03-9036Wyrridw of Social functionNOMS HealthcareWithin the last year, [...] got money to buy more.Never trueNOCT HealthcareStart: 16-05-9594Os the past 12 months, has lack of transportation kept you from medical appointments or from getting medications?NoNOMS HealthcareStart: 73-78-1743Hxjwypfnc39QPTS Healthcare Start: 95-14-1222Dqyfrxw Comment2-4 drinks per weekNOCT HealthcareStart: 91-22-5782Ifl Assigned At BirthFeWinthrop Community Hospital HealthcareStart: 78-63-9265Wcmwln identityIdentifies as female gender (finding)[facility] HealthcareStart: 07-25-2023 End: 59-06-8256Rgjjvtd smoking status NHISSmoker (finding)[facility] HospitalHistory of tobacco useCigarette SmokerNOCT HealthcareStart: 58-66-8113KlsrnumqzKGLU Healthcare Goals DatePatient GoalDesired Activity/State Functional Status FtgpKjugoxgfebYkvnaeOgymucan95-59-0906Lfnycyhjtt StatusNoEast [facility] Clinical Notes 04-07-2021 to 01-20-2025 Note Date & FlguZzzwHgvubxwd88-40-0745 History of Present illness Narrative* ADAN Gonzalez [...] Cigarette smoker 12/10/2022 Cyst of ovary 12/10/2022 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 Assessment/Plan ICD-10-CM 1. Third trimester ([facility]) Z34.93 2. 35 weeks gestation of ([facility]) Z3A.35 POCT urinalysis dipstick manually resulted Return [...] behalf of: ADAN Gonzalez documented in this encounterSamaritan HospitalByiqrjwyli65-01-8587 History of Present illness Narrative* Lissette Sloane, [...] nursing note reviewed. Exam conducted with a horticultural technical officer present. Vitals: Estimated body mass index is 29.59 kg/m as calculated from the following: Height as of 24: 5' 4 . Weight as of this encounter: 172 lb 6.4 oz. BP: 100/60 Patient's last menstrual period was 05/16/2024. Assessment/Plan ICD-10-CM 1. Third trimester ([facility]) Z34.93 2. 33 weeks gestation of ([facility]) Z3A.33 POCT urinalysis dipstick manually resulted [...] of: Doc Thomas DO documented in this encounterSamaritan HospitalEsgtgaccxq79-46-8785 History of Present illness Narrative* Luna Steen [...] nursing note reviewed. Exam conducted with a horticultural technical officer present. Vitals: Estimated body mass index is 29.42 kg/m as calculated from the following: Height as of 02/26/24: 5' 4 . Weight as of this encounter: 171 lb 6.4 oz. BP: 110/70 Patient's last menstrual period was 05/16/2024. ASSESSMENT & PLAN ICD-10-CM 1. Third trimester ([facility]) Z34.93 2. 31 weeks gestation of ([facility]) Z3A.31 POCT urinalysis dipstick manually resulted [...] of: Luna Steen NP documented in this encounterSamaritan HospitalQvblvyiupt53-69-9331 History of Present illness Narrative* Lissette Anton [...] nursing note reviewed. Exam conducted with a horticultural technical officer present. Vitals: Estimated body mass index is 28.84 kg/m as calculated from the following: Height as of 02/26/24: 5' 4 . Weight as of this encounter: 168 lb. BP: 110/74 Patient's last menstrual period was 05/16/2024. ASSESSMENT & PLAN ICD-10-CM 1. Third trimester ([facility]) Z34.93 POCT urinalysis dipstick manually resulted 2. 29 weeks gestation of ([facility]) Z3A.29 Return OB: Patient presents today [...] of: Doc Thomas DO documented in this encounterSamaritan HospitalUytfzepyph40-68-2550 [facility] Reason for cardiology consult: Cardiogenic syncope Chief Complaint: Syncope HPI: summer Matthew is a 24 y.o. female with history of neurocardiogenic syncope diagnosed about 6 years ago, Evan disease, chronic fatigue, overweight, anxiety/depression Patient is now 28 weeks . She reports that she was diagnosed with neurocardiogenic syncope about 6 years ago by [facility] cardiology and she was on [...] Disp: , Rfl: no.37/i (more content not included)...[facility]09-10-2025 History of Present illness Narrative* Luna Steen [...] nursing note reviewed. Exam conducted with a horticultural technical officer present. Vitals: Estimated body mass index is 29.95 kg/m as calculated from the following: Height as of 24: 5' 4 . Weight as of this encounter: 174 lb 8 oz. BP: 110/60 Patient's last menstrual period was 05/16/2024. ASSESSMENT & PLAN ICD-10-CM 1. Second trimester ([facility]) Z34.92 POCT urinalysis dipstick manually resulted 2. 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 Exam conducted with a horticultural technical officer present. Vitals: Estimated body mass index is 28.49 kg/m as calculated from the following: Height as of 02/26/24: 5' 4 . Weight as of this encounter: 166 lb. BP: 130/80 Patient's last menstrual period was 05/16/2024. ASSESSMENT & PLAN ICD-10-CM 1. Second trimester ([facility]) Z34.92 POCT urinalysis dipstick manually resulted 2. 23 weeks gestation of ([facility]) Z3A.23 3. Diabetes mellitus screening Z13.1 [...] and prior work up for palpitations with [place] [facility]. Plan will be to continue TSH every 4 weeks, EKG and cardiac Echo and follow up with [place] [facility]ology and a referral will be made she declined Metoprolol at this time. Patient is to return to office in 4 week for routine OB appointment. Documented by Luna Steen NP on behalf of: Luna Steen NP documented in this encounterSamaritan [id number] History of Present illness Narrative* Lissette Anton [...] nursing note reviewed. Exam conducted with a horticultural technical officer present. Vitals: Estimated body mass index is 28.29 kg/m as calculated from the following: Height as of 24: 5' 4 . Weight as of this encounter: 164 lb 12.8 oz. BP: 110/72 Patient's last menstrual period was 05/16/2024. ASSESSMENT & PLAN ICD-10-CM 1. 19 weeks gestation of ([facility]) Z3A.19 POCT urinalysis dipstick manually resulted 2. Second trimester ([facility]) Z34.92 POCT urinalysis dipstick manually resulted [...] of: Doc Thomas DO documented in this encounterSamaritan [id number] History of Present illness Narrative* Luna Steen [...] nursing note reviewed. Exam conducted with a horticultural technical officer present. Vitals: Estimated body mass index is 30.21 kg/m as calculated from the following: Height as of 02/26/24: 5' 4 . Weight as of 08/05/24: 176 lb. BP: Patient's last menstrual period was 05/16/2024. ASSESSMENT & PLAN ICD-10-CM 1. Second trimester ([facility]) Z34.92 Alpha fetoprotein, maternal Alpha fetoprotein, maternal POCT urinalysis dipstick manually resulted 2. 15 weeks gestation of ([facility]) Z3A.15 3. Screening, , for anatomic survey ([facility]) Z36.89 US OB 14+ weeks anatomy [...] behalf of: ADAN Gonzalez documented in this encounterSamaritan [id number] History of Present illness Narrative* Lissette Anton [...] nursing note reviewed. Exam conducted with a horticultural technical officer present. Vitals: Estimated body mass index is [...] undercooked meat, and stay away from [facility]. Patient has been consulted regarding any further [...] of: Doc Thomas DO documented in this encounterSamaritan [id number] History of Present illness Narrative* Aliya Aguilar [...] undercooked meat, and stay away from [facility]. Patient has also been advised to not [...] by: Aliya Aguilar LPN documented in this encounterSamaritan [id number] History of Present illness Narrative* Radha Ashraf [...] 03/02/2024 7:42 AM EST documented in this encounterSamaritan [id number] History of Present illness Narrative* Rosalie Payne [...] - Iron and TIBC documented in this encounterSamaritan [id number] History of Present illness Narrative* Stefano Nagy, [...] HEP at this time. documented in this encounterSamaritan HospitalAsffiycokv02-08-0511 History of Present illness Narrative* Stefano Nagy, [...] issue. Continue as tolerated. documented in this encounterSamaritan [id number] History of Present illness Narrative* Kelvin Schwartz, DO - 12/09/2023 8:00 AM EDT Images from the original note were not included. @ENCDATE@ [facility] Matthew is a 23 y.o. female [...] the operative report andarthroscopic photos available in [facility]. Following the surgery in April 2023, [...] REMOVAL Left 05/20/2020 [facility] VAGINAL DELIVERY FAMILY HISTORY: Family History [...] note was created using voice recognition through [employer]. documented in this encounterSamaritan HospitalPxgwmujsgn09-10-3076 [facility] History and physical note Author Marcelle Espinosa [facility] September 02, 2023 11:40amNote Date/TimeJune 2023 11:40[place] [address] Gastroenterology H&P Signed Patient: Aleta Castro MR#: [id number] : 2000 Acct:[id number] Age/Sex: 23 / F Adm Date: 4 Loc: Room: Type: [facility] Attending Dr: Marcelle Espinosa [...] signed by Marcelle Espinosa DO> 09/02/23 1140 [facility] Work Phone: 1(453) 623-476006-17-2024 [facility]01-30-2024 [id number] [facility]01-15-2024 Evaluation note* Encounter [...] Wash your hands regularly. [facility] if symptoms persist. Patient is [...] follow up with PCP if symptoms persist. [employer] Other 06-06-2022 Evaluation note* Encounter Date Diagnosis [...] symptoms or concerns Aug,ronchitis (ICD-10 - J40) [employer] Other 03-09-2022 Hospital Discharge instructions* Instructions* Artis [...] be sent through Care Everywhere. * Contusion (Ukrainian) * Knee Pain or Injury (Ukrainian) * RICE: General Info (Ukrainian) documented in this encounterGood Samaritan HospitalHeald College Work Phone: 1(875) 351-528102-24-2022 Evaluation note* Encounter Date Diagnosis Assessment Notes Treatment Notes Treatment Clinical Notes Apr, Oral thrush (ICD-10 - B37.0) Use medication as directed. Change toothbrush. Follow up with PCP if symptoms do not improve with treatment [employer] [facility] 02-14-2022 Evaluation note* Encounter Date Diagnosis [...] in writting by [facility] document. [employer] Other 01-21-2022 Evaluation note* Encounter Date Diagnosis [...] in writting by [facility] Home document. [employer] Other Evaluation + Plan note Future Appointments Appointment Date:04/23/2023 07:30:00 AM Scheduled Provider: Location:[facility] Diagnosis Closed head injury, initial encounter- Primary documented in this encounter [facility] Phone: evaluation note* Diagnosis Tailbone injury, initial encounter- Primary documented in this encounter [facility] Phone: evaluation note* Diagnosis Contusion of left knee, initial encounter- Primary documented in this encounter [facility] Phone: evaluation note* Diagnosis Onset Date Resolution Status Diarrhea acuteGERD (gastroesophageal reflux disease)acuteLower abdominal painacuteNausea [facility] Work Phone: Evaluation note* Diagnosis Onset Date Resolution Status Diarrhea acuteDysphagiaacuteGERD (gastroesophageal reflux disease)acuteLower abdominal painacuteNauseaacMar[facility] Work Phone: Evaluation note* Diagnosis Acute [...] ([facility]HS-H[facility]) state, incidental 15 weeks gestation of ([facility]) Screening, , for anatomic survey ([facility]) Encounter for anatomic survey [facility] Diagnosis 19 weeks gestation of ([facility]) Second trimester ([facility]) state, incidental documented [facility]* Diagnosis Second trimester ([facility]) state, incidental 23 weeks gestation of ([facility]) Diabetes mellitus screening Screening for diabetes mellitus STD exposure Well woman exam with routine gynecological exam Routine gynecological examination Heart palpitations Palpitations documented [facility] encounter [facility]* Diagnosis Second trimester ([facility]) state, incidental 27 weeks gestation of ([facility]) Evan's disease Chronic lymphocytic thyroiditis documented in [...] syncopeMedical Historychronic depressionSurgical Historyleft ovarian cystHospitalization Historychild [employer] Other Hospital course Narrative No data available for this section [facility] HospitalH[facility] Discharge instructions* Attachments The following attachments cannot be sent through Care Everywhere. * Head Injury: Closed: General Info (Ukrainian) documented in this encounterGood Samaritan HospitalNumerous Phone: Hospital Discharge instructions* Attachments The following attachments cannot be sent through Care Everywhere. * Coccyx Injury (Ukrainian) documented in this encounterGood Samaritan HospitalNumerous Phone: Hospital Discharge instructions No data available for this section [facility] HospitalProgress note No data available for this section [facility] Summary Purpose Family History Relationship Condition [...] section and content) DATE CREATED AUTHOR 09/05/2017 [facility] DATE CREATED AUTHOR AUTHOR'S ORGANIZ ATION 09/05/2017 [facility] DATE CREATED AUTHOR AUTHOR'S ORGANIZ ATION 10/28/2019 [facility] DATE CREATED AUTHOR AUTHOR'S ORGANIZ ATION 05/26/2021 [facility] DATE CREATED AUTHOR AUTHOR'S ORGANIZ ATION 05/10/2022 [facility] DATE CREATED AUTHOR AUTHOR'S ORGANIZ ATION 07/24/2022 [facility] DATE CREATED AUTHOR AUTHOR'S ORGANIZ ATION 05/15/2023 [facility] DATE CREATED AUTHOR AUTHOR'S ORGANIZ ATION 09/11/2023 [facility] DATE CREATED AUTHOR AUTHOR'S ORGANIZ ATION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
== END 2025-01-27 15:52 | disposition home or self-care (01) ==
LOC: FBCO 14:56 → FBC 14:59
PROVIDERS: PCP Family Medicine; Visit Provider Obstetrics & Gynecology
DX: O99.283 Endocrine, nutritional and metabolic diseases complicating pregnancy, third trimester (principal); E06.3 Autoimmune thyroiditis; Z3A.36 36 weeks gestation of pregnancy
CPT/HCPCS: 59025; 87081

== ENCOUNTER 2025-01-27 19:53 | Outpatient (REF) | payer BC, SELFPAY ==
--- OUTSIDE RECORDS SUMMARY | 2024-12-23 13:00 | XMS_ITS | Encounter Summary ---
Author Organization [facility] Address [address] [place] [address] Care Team Providers Care Rn Orthopedic Name Role Phone Danny Schuler MD Primary Care Provider [phone] Danny Schuler MD Unavailable [phone] Reason for Visit * ReasonCommentsRoutine Visit Encounter Details DateTypeDepartmentCare Team (Latest Contact Info)Evdtmyazlsl59/08/2025 2:00 PM EDTRoutine [facility] [address] [place] [address] Jessica Steen, [place] [address] [place] [address] Third trimester ([facility]); 31 weeks gestation of ([facility]) Social History Tobacco UseTypesPacks/DayYears UsedDateSmoking Tobacco: Some [...] relatives?Once a week12/11/2022How often do you attend pentecostal or nondenominational services?More than 4 times per year12/11/2022o you belong to any clubs or organizations such as pentecostal groups, unions, fraOpenLabel or athletic groups, or school groups?No12/11/2022How often [...] food, housing, medical care, and heating?Somewhat hard 12/11/2022[facility] [place] of Occupational Health - Occupational Stress QuestionnaireAnswerDate RecordedDo you feel stress - tense, restless, nervous, or anxious, or unable to sleep at night because yourmind is troubled all the time - these days?Only a pppksq7212/11/2022Exercise Vital SignAnswerDate Recorded On average, how many [...] steady place to sleep or slept in [place] (including now)?No12/11/2022EducationAnswer Date RecordedWhat is the highest level of school you have completed or the highest degree you have received?11th grade12/10/2022Estimated Date of YhhjbwhzKjpgaztgCkb89/06/2025ased on last menstrual period of 05/16/2024Sex and Gender InformationValueDate RecordedSex Assigned at KpzuwXmugmp65/25/2023 10:10 AM EDTLegal TpePmxfyy65/15/2023 6:51 PM EDTGender MufbfgofDvoewa75/25/2023 10:10 AM EDTSexual OrientationNot on filedocumented as of this encounter Last Filed Vital Signs Vital SignReadingTime TakenCommentsBlood Dyngksat880/7012/23/2024 1:57 PM EDT Pulse--Temperature--Respiratory Rate--Oxygen Saturation--Inhaled Oxygen Concentration--Hxtvrb73.7 kg (171 lb 6.4 oz)12/23/2024 1:57 PM [...] Left 2019 OVARIAN CYST REMOVAL Left 05/20/2020 [facility] William VAGINAL DELIVERY REVIEW OF SYSTEMS [...] nursing note reviewed. Exam conducted with a professor of history present. Vitals: Estimated body mass index is 29.42 kg/m?? as calculated from the following: Height as of 02/26/24: 5' 4 . Weight as of this encounter: 171 lb 6.4 oz. BP: 110/70 Patient's last menstrual period was 05/16/2024. ASSESSMENT & PLAN ICD-10-CM 1. Third trimester ([facility]) Z34.93 2. 31 weeks gestation of ([facility]) Z3A.31 POCT urinalysis dipstick manually resulted Return [...] Plan of Treatment DateTypeDepartmentCare Team (Latest Contact Info)Fupolnxdtqc79/19/2025 1:20 PM ESTRoutine [facility] [address] [place] [address] Doc Thomas DO [address] [place], [place] [address] documented as of this encounter Procedures Procedure NamePriorityDate/TimeAssociated DiagnosisCommentsPOCT URINALYSIS RJHEUTQIPljdhwc02/08/2025 2:01 PM EDT 31 weeks gestation of ([facility]) documented in this encounter Results [...] this encounter Visit Diagnoses Diagnosis Third trimester ([facility]) state, incidental 31 weeks gestation of ([facility]) documented in this encounter Care Teams Team MemberRelationshipSpecialtyStart DateEnd Date Danny Schuler MD [address] [facility] [address] [place] [address] PCP - GeneralFamily Medicine07/24/22 Danny Schuler MD [address] [place] [address] PCP - Ziggy Richard06/16/20documented as of this encounter
--- OUTSIDE RECORDS SUMMARY | 2025-01-20 13:50 | XMS_ITS | Encounter Summary ---
Author Organization [facility] Address [address] [place] [address] Care Team Providers Care Limerock Tower Loader Name Role Phone Danny Schuler MD Primary Care Provider [phone] Danny Schuler MD Unavailable [phone] Reason for Visit * ReasonCommentsRoutine Visit Encounter Details DateTypeDepartmentCare Team (Latest Contact Info)Ifwtpntjbgt62/05/2025 1:50 PM ESTRoutine [facility] [address] [facility] [place] [address] Pretty Chaidez PA [address] [place], [place] [id number] Third trimester ([facility]); 35 weeks gestation of ([facility]) Social History Tobacco UseTypesPacks/DayYears UsedDateSmoking [...] relatives?Once a week12/11/2022How often do you attend druze or episcopalian services?More than 4 times per year12/11/2022o you belong to any clubs or organizations such as druze groups, unions, fraVanu or athletic groups, or school groups?No12/11/2022How often [...] and heating?Somewhat hard 12/11/2022[facility] [place] of Occupational Health - Occupational Stress QuestionnaireAnswerDate RecordedDo you feel stress - tense, restless, nervous, or anxious, or unable to sleep at night because yourmind is troubled all the time - these days?Only a qrepsp2912/11/2022Exercise Vital SignAnswerDate Recorded On average, how many [...] degree you have received?11th grade12/10/2022Estimated Date of VjcigxmwNthflzluKbt54/06/2025Based on last menstrual period of 05/16/2024Sex and Gender InformationValueDate RecordedSex Assigned at IorpgPdgtqo69/25/2023 10:10 AM EDTLegal GpaSdnfnl33/15/2023 6:51 PM EDTGender JxjbwkmfFsovhw31/25/2023 10:10 AM EDTSexual OrientationNot on filedocumented as of this encounter Last Filed Vital Signs Vital SignReadingTime TakenCommentsBlood Empchpic95/6001/20/2025 2:02 PM EST Pulse--Temperature--Respiratory Rate--Oxygen Saturation--Inhaled Oxygen Concentration--Wcphzh99.3 kg (174 lb 12.8 oz)01/20/2025 2:02 PM ESTHeight--Body Mass Vbnor1388/11/2024 3:41 PM ESTdocumented in this encounter Progress [...] Left 2019 OVARIAN CYST REMOVAL Left 05/20/2020 [facility] William VAGINAL DELIVERY REVIEW OF SYSTEMS [...] was 05/16/2024. Assessment/Plan ICD-10-CM 1. Third trimester ([facility]) Z34.93 2. 35 weeks gestation of ([facility]) Z3A.35 POCT urinalysis dipstick manually resulted [...] Plan of Treatment DateTypeDepartmentCare Team (Latest Contact Info)Kbnwydyymzs05/19/2025 1:20 PM ESTRoutine [facility] [address] [place] [address] WilliamDoc leiva, [address] [place] [address] documented as of this encounter Procedures Procedure NamePriorityDate/TimeAssociated DiagnosisCommentsPOCT URINALYSIS ULQJZPZURjctbci21/05/2025 2:07 PM EST 35 weeks gestation of ([facility]) documented in this encounter Results [...] Narrative Authorizing ProviderResult TypeResult StatusPretty IBANEZOINT OF [facility] TEST ENTER/EDIT ORDERABLESFinal Result documented in this encounter Visit Diagnoses Diagnosis Third trimester ([facility]) state, incidental 35 weeks gestation of ([facility]) documented in this encounter Care Teams Team MemberRelationshipSpecialtyStart DateEnd Date Danny Schuler MD [address] [address] PCP - GeneralFamily Medicine07/24/22 Danny Schuler MD [address] [address] PCP - Ziggy Richard06/16/20documented as of this encounter
--- OUTSIDE RECORDS SUMMARY | 2025-01-27 13:40 | XMS_ITS | Encounter Summary ---
Author Organization [facility] Address [address] [place] [address] Care Team Providers Care Political Director Name Role Phone Danny Schuler MD Primary Care Provider [phone] Danny Schuler MD Unavailable [phone] Reason for Visit * ReasonCommentsRoutine Visit Encounter Details DateTypeDepartmentCare Team (Latest Contact Info)Kgthzthjdho59/12/2025 1:40 PM ESTRoutine [facility] [address] [place] [phone] Doc Thomas DO [address] [place] [address] 36 weeks gestation of ([facility]); Third trimester ([facility]); Gabby's disease; Low hemoglobin; Heart palpitations; Pelvic pressure in ([facility]) Social History Tobacco UseTypesPacks/DayYears UsedDateSmoking Tobacco: Some [...] relatives?Once a week12/11/2022How often do you attend confucianism or lutheran services?More than 4 times per year12/11/2022o you belong to any clubs or organizations such as confucianism groups, unions, fraternal or athletic groups, or [...] and heating?Somewhat hard 12/11/2022[facility] [place] of Occupational Health - Occupational Stress QuestionnaireAnswerDate RecordedDo you feel stress - tense, restless, nervous, or anxious, or unable to sleep at night because yourmind is troubled all the time - these days?Only a zwhoyo7812/11/2022Exercise Vital SignAnswerDate Recorded On average, how many [...] steady place to sleep or slept in [place] (including now)?No12/11/2022EducationAnswer Date RecordedWhat is the highest level of school you have completed or the highest degree you have received?11th grade12/10/2022Estimated Date of ElbaqnzjLdfuxfxqLcd88/06/2025Based on last menstrual period of 05/16/2024Sex and Gender InformationValueDate RecordedSex Assigned at EtwimOiveap70/25/2023 10:10 AM EDTLegal WkhKcgslq35/15/2023 6:51 PM EDTGender GdwervphKbsccw19/25/2023 10:10 AM EDTSexual OrientationNot on filedocumented as of this encounter Last Filed Vital Signs Vital SignReadingTime TakenCommentsBlood Tfepvyup364/80103/29/2024 2:05 PM EST Pulse--Temperature--Respiratory Rate--Oxygen Saturation--Inhaled Oxygen Concentration--Rsfqjw52.8 kg (176 lb)01/27/2025 2:05 PM ESTHeight--Body Mass Index30. 3:41 PM ESTdocumented in this encounter Progress Notes * Lissette Anton, CARCASS WASHER - 01/27/2025 1:40 PM EST Reason for [...] Left 2019 OVARIAN CYST REMOVAL Left 05/20/2020 [facility] William VAGINAL DELIVERY REVIEW OF SYSTEMS [...] note reviewed. Exam conducted with a chemical production technician present. Vitals: Estimated body mass index is 30.21 kg/m?? as calculated from the following: Height as of 24: 5' 4 . Weight as of this encounter: 176 lb. BP: 120/80 Patient's last menstrual period was 05/16/2024. Assessment/Plan ICD-10-CM 1. 36 weeks gestation of ([facility]) Z3A.36 POCT urinalysis dipstick manually resulted 2. 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 Low hemoglobin D64.9 5. Heart palpitations R00.2 6. Pelvic pressure in ([facility]) O26.899 R10.20 Assessment/Plan Patient is doing well [...] Plan of Treatment DateTypeDepartmentCare Team (Latest Contact Info)Tumtgmtjxza32/19/2025 1:20 PM ESTRoutine [facility] [address] [place] [address] Doc Thomas DO [address] [place] [place], [place] [phone] NameTypePriorityAssociated DiagnosesOrder ScheduleCULTURE, GROUP B STREP WITH SUSCEPTIBLITYLabRoutine Third trimester ([facility]) Expected: 01/27/2025, Expires: 01/27/2026documented as of this encounter Procedures Procedure NamePriorityDate/TimeAssociated DiagnosisCommentsPOCT URINALYSIS MPPECSWDJlfschh48/12/2025 2:14 PM EST 36 weeks gestation of ([facility]) Third trimester ([facility]) documented in this encounter Results * (ABNORMAL) [...] Visit Diagnoses Diagnosis 36 weeks gestation of ([facility]) Third trimester ([facility]) state, incidental Gabby's disease Chronic lymphocytic thyroiditis Low hemoglobin Heart palpitations Palpitations Pelvic pressure in ([facility]) Other specified complication, antepartum documented in this encounter Care Teams Team MemberRelationshipSpecialtyStart DateEnd Date Danny Schuler MD [address] [place] [address] PCP - GeneralFamily Medicine07/24/22 Danny Schuler MD [address] [place] [address] PCP - Ziggy Richard06/16/20documented as of this encounter
--- OUTSIDE RECORDS SUMMARY | 2025-01-27 19:58 | XMS_ITS | CCD ---
Author Organization [facility] CliniSymn Care Team Providers Care Phlebotomy Director Name Role Phone BECERRIL, DAVID P Unavailable [...] able Rosalie Payne MD Primary Care Provider [phone] Pocanaly, Myron Washburn Admitting Unavailable PocosMyron Referring Unavailable Pocos, Myron Washburn Attending Unavailable Pocos, Myron Washburn Referring Unavailable Pocos, Myron Washburn Attending Unavailable Myron Marroquin Admitting Unavailable MD Rosalie Payne Primary Care Provider DO Marcelle Espinosa Attending Provider Marcelle Espinosa Attending Unavailable Marcelle Espinosa Admitting Unavailable Rosalie Payne Primary Care Unavailable Rosalie Payne MD Primary Care Provider [phone] Rosalie Payne MD Primary Care Provider Rosalie [...] Allergen(s)Allergy TypeDate of OnsetReaction(s) FacilityLatex (1 source)LatexSubstance Hhmmbbm96-17-4546ExmlBooep HealthMacrolides (antibiotic) (1 source)AzithromycinDrug Lbveggs17-81-6072GqyzoRqcof Health (20 sources)Azithromycin; Translations: [azithromycin]Drug Smsopuv87-36-8324 [facility] (11 sources)Latex; Translations: [Latex]Propensity to adverse reactions to drug 43-50-3394QubtAynup Health (1 source)AzithromycinDrug Wqlluzy13-86-9378Lqk [facility] Repository (1 source)natural latex rubberDrug allergy (disorder)[facility] Repository (2 sources)Banana Extract; Translations: [Banana]Drug AllergyVomiting (disorder) [facility] (20 sources)Midodrine; Translations: [midodrine]Drug Jcssdtj05-30-0645WkrdfccnWilson Health (20 sources)LatexAllergy to dktubmnfk32-35-2784UzkfAJFP Healthcare (1 source)AzithromycinDrug Ovqwkvj58-45-4752VpsyhrtcdTr[facility] (1 source)LatexDrug allergy (disorder)99-98-4254TdzzujjmqTrinity Health [facility] Repository Medications Current Medications MedicationDrug Class(es)DatesSig (Normalized)Sig (Original)[id number] 200 actuat albuterol 0.09 mg/actuat metered dose inhaler (2 sources)beta2-Adrenergic AgonistStart: 84-94-9599dmeb 2 puff(s) by inhalation four times daily as neededAlbuterol Sulfate HFA 108 (90 Base) MCG/ACT 2 puffs Inhalation 4 times a day prn Aug, ActiveStart: 57-09-3711gwgv 2 puff(s) by inhalation four times daily as neededAlbuterol Sulfate HFA 108 (90 Base) MCG/ACT 2 puffs Inhalation 4 times a day prn Aug, Not-Taking/PRN fluconazole 150 mg oral tablet (2 sources)Azole AntifungalStart: 12-09-2024 End: 15-07-8076hdlhyvkouxw (Diflucan) 150 MG tablet Indications: Yeast infection Take 1 tablet (150 mg) by mouth 1(one) time for 1 dose Repeat in 7 days if symptoms persist. 2 tablet 12/09/2024 12/09/2024 Activefluticasone propionate 0.05 mg/actuat metered dose nasal spray (4 sources)CorticosteroidStart: 35-19-7261paglytyqxwh (Flonase) 50 MCG/ACT nasal sprayStart: 16-80-3188rfrx 1 spray(s) nasal route once dailyFluticasone Propionate 50 MCG/ACT 1 spray in each nostril Nasally Once a day for 14 15 Mar, 2023 ActiveStart: 04-98-5523aaqj 2 spray(s) nasal route once daily as needed Fluticasone Propionate 50 MCG/ACT 2 sprays Nasally Once a day for 14 day(s) Aug, Not-Taking/PRNStart: 35-71-0810ufup 2 spray(s) nasal route once daily Fluticasone Propionate 50 MCG/ACT 2 sprays Nasally Once a day for 14 day(s) Aug, Activeibuprofen 600 mg oral tablet (20 sources)Nonsteroidal Anti-inflammatory DrugStart: 26-72-6151jfnd 1 tablet by mouth four times daily as needed for painibuprofen (ADVIL;MOTRIN) 600 MG tablet Take 1 tablet by mouth 4 times daily as needed for Pain 30 tablet 0 12/14/2020 Active End: 49-16-0470obyfwmjym 200 MG tablet Take by mouth. 07/16/2024 Discontinued magnesium oxide 400 mg oral tablet (5 sources)Start: 07-16-2024 End: 29-74-2421pkil 1 tablet by mouth once dailymagnesium oxide (Mag-Ox) 400 MG tablet Indications: Cluster headache, not intractable, unspecified chronicity pattern Take 1 tablet (400 mg) by mouth Daily 30 tablet 6 07/16/2024 08/15/2024 Activeondansetron 4 mg oral tablet (20 sources)Serotonin-3 Receptor AntagonistStart: 68-97-6189pohu 1 tablet by mouth every six hours as needed for nausea and nausea, then take 1 tablet by mouthevery six hours as needed for nausea and nauseaondansetron (Zofran) 4 MG tablet Indications: Nausea and vomiting in ([facility]) Take 1 tablet (4 mg) by mouth every 6 (six) hours if needed for nausea or vomiting for up to 30 doses Take 1 tablet by mouth every 6 hours as needed for nausea. 30 tablet 12/23/2024 ActiveStart: 10-05-2024 End: 10-67-9784otob 1 tablet by mouth every six hours for nauseaondansetron ODT (Zofran-ODT) 4 MG disintegrating tablet Indications: Nausea and vomiting during ([facility]) Take 1 tablet (4 mg) by mouth every 6 (six) hours if needed for nausea or vomiting 30 tablet 3 10/05/2024 11/04/2024 ActiveStart: 08-26-2024 End: 88-39-2648vfhp 1 tablet by mouth every six hours for nauseaondansetron ODT (Zofran-ODT) 4 MG disintegrating tablet Indications: Nausea and vomiting during ([facility]) Take 1 tablet (4 mg) by mouth every 6 (six) hours if needed for nausea or vomiting 30 tablet 3 08/26/2024 09/30/2024 ActiveStart: 07-06-2024 End: 74-59-0090suac 1 tablet by mouth every six hours for nauseaondansetron ODT (Zofran-ODT) 4 MG disintegrating tablet Indications: Nausea and vomiting during Take 1 tablet (4 mg) by mouth every 6 (six) hours if needed for nausea or vomiting 30 tablet 2 07/06/2024 08/05/2024 Activepenicillin v potassium 500 mg oral tablet (1 source)Start: 42-29-5713pkhv 1 tablet by mouth every eight hoursPenicillin V Potassium 500 MG 1 tablet Orally tid for 10 day(s) 14 Apr, 2021 Active polysaccharide iron complex 391 mg oral capsule (5 sources)Start: 11-05-2024 End: 89-70-7626djrl 1 capsule by mouth once dailyiron polysaccharides (ProFe) 391.3 (180 Fe) MG capsule Indications: Low hemoglobin Take 1 capsule (391.3 mg) by mouth Daily 30 capsule 3 11/05/2024 12/05/2024 ActivetiZANidine 4 mg oral tablet (2 sources)Central alpha-2 Adrenergic AgonistStart: 99-45-1214rvnw 1 tablet by mouth every eight hours as needed for paintiZANidine (ZANAFLEX) 4 MG tablet Take 1 tablet by mouth every 8 hours as needed (pain and muscle tension/cramps) 10 tablet 0 12/14/2020 Active Completed/Discontinued Medications MedicationDrug Class(es)DatesSig (Normalized)Sig (Original)acetaminophen 325 mg oral tablet (1 source)Start: 09-19-2020 End: 14-72-5532fwigqpovzjnvn (TYLENOL) tablet 650 mgCitalopram (7 sources)Serotonin Reuptake InhibitorCitalopram Hydrobromide Not-Taking/PRN take 1 tablet by mouth once dailycitalopram (CELEXA) 20 MG tablet Take 20 mg by mouth daily 0 ActiveCitalopram Hydrobromide Activeclotrimazole 10 mg oral lozenge (3 sources)Azole AntifungalStart: 20-95-8874Djdwlgffmpgv 10 MG 1 wenceslao Mouth/Throat Three times a day for 7 day(s) Apr, Not-Taking/PRN medroxyPROGESTERone (4 sources)ProgestinDepo-Provera Not-Taking/PRNDepo-Provera Activemetoclopramide 10 mg oral tablet (12 sources)Dopamine-2 Receptor AntagonistStart: 07-16-2024 End: 54-92-8759npsnheldqatatg (Reglan) 10 MG tablet Indications: Nausea/vomiting in [...] tablet (2 sources)Nonsteroidal Anti-inflammatory DrugStart: 05-24-2021 End: 72-28-4483oyxswvvo sodium (ANAPROX) tablet 550 mgStart: 40-24-8189vjgw 1 tablet by mouth twice daily at mealtimenaproxen (NAPROSYN) 500 MG tablet Take 1 tablet by mouth 2 times daily (with meals) 20 tablet 1 05/24/2021 Active pantoprazole 40 mg delayed release oral tablet (17 sources)Proton Pump InhibitorStart: 02-17-2024 End: 79-57-0974mciu 1 tablet by mouth before mealtimepantoprazole (ProtoNix) 40 MG EC tablet Take 40 mg by mouth in the morning. Take before meals. 02/17/2024 09/30/2024 DiscontinuedpredniSONE 20 mg oral tablet (3 sources)Start: 08-93-5708thuh 1 tablet by mouth every twelve hourspredniSONE 20 MG 1 tablet Orally 2 times a day for 5 day(s) Aug, Not-Taking/PRN Start: 65-49-9629ypjm 1 tablet by mouth every twelve hourspredniSONE 20 MG 1 tablet Orally bid for 5 day(s) Apr, Active Problems Active Problems Problem ClassificationProblemDateDocumented DateEpisodic/ChronicAbdominal pain (11 sources)Pelvic and perineal pain; Translations: [Right lower quadrant pain] Onset: 58-37-2945QkploetaIonsome dysrhythmias (20 sources)Postural orthostatic tachycardia syndrome ; Translations: [Postural orthostatic tachycardia syndrome (POTS)]Onset: 539487-96-1003Dmnsjfs Cardiac dysrhythmias (4 sources)Palpitations; Translations: [Palpitations]03-71-2745Eephmgbu Coagulation and hemorrhagic disorders (1 source)Qualitative platelet defects; 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]Onset: 98-64-4542XsyrwbnAgdziflrah disorders (4 sources)Gastroesophageal reflux disease; Translations: [Gastro-esophageal reflux disease without esophagitis]76-14-8045PcaigzzYdjdbrhu; including migraine (1 source)Cluster headache; Translations: [Cluster headache syndrome, unspecified, not intractable]86-10-7660EebnrvfIasrsioeyovgj and screening for infectious disease (4 sources)Contact with and (suspected) exposure to other viral communicable diseases; Translations: [Exposureto sexually transmissible disorder]Onset: 04-07-2021 Resolved: 07-47-8206IsfsptdnYjzomcu and fatigue (20 sources)Fatigue; Translations: [Chronic fatigue, unspecified]Onset: 986289-59-8178FkoulikIesmahizq disorders (20 sources)Disorder of menstruation; Translations: [Irregular menstruation, unspecified]Onset: 707341-57-4002YqgqaynMtoepgn (3 sources)Candidal stomatitis; Translations: [Mycosis]Onset: 05-11-2021 Resolved: 82-18-5002EkckuyzmGevqug and vomiting (4 sources)Nausea; Translations: [Nausea]44-90-8696CkasephgAqwjt bone disease and musculoskeletal deformities (20 sources)Van Voorhis Schlatter disease; 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]Onset: 498389-21-9322JaeycxnTjkpd circulatory disease (1 source)Postural orthostatic tachycardia xwjdalxc74-10-6044ElltlhouMsamb complications of (1 source)Vomiting of , unspecified; Translations: [Unspecified vomiting of , unspecified as to episode of care or not applicable] 54-05-5771YriybhnaKlsqq gastrointestinal disorders (2 sources)Diarrhea; Translations: [Diarrhea, unspecified]74-19-7459Xvzuecht Other gastrointestinal disorders (2 sources)Diarrhea, unspecified; Translations: [Diarrhea]54-02-7771Qnrajdwj Other gastrointestinal disorders (1 source)Dysphagia; Translations: [Dysphagia, unspecified]04-44-8269Kgawwnkh Other gastrointestinal disorders (1 source)Dysphagia, unspecified; Translations: [Dysphagia, unspecified] 62-43-9978MvzpnoctHeyfy injuries and conditions due to external causes (1 source)Closed injury of head; Translations: [Unspecified injury of head, initial encounter]EpisodicOther injuries and conditions due to external causes (1 source)Injury of coccyx; Translations: [Unspecified injury of lower back, initial encounter]EpisodicOther injuries and conditions due to external causes (2 sources)Injury of left knee; Translations: [Unspecified injury of left lower leg, initial encounter]13-55-8061LjzjqkgoLkxhn nutritional; endocrine; and metabolic disorders (20 sources)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 imbalance; Translations: [Other obesity due to excess calories]Onset: 928003-47-7785PenxfdkSqizq nutritional; endocrine; and metabolic disorders (1 source)H/O: zxmashsrvlwuto93-49-6464BadyyyabFghzu and delivery including normal (20 sources); Translations: [Encounter for supervision of normal , unspecified, unspecified trimester]10-41-1410BfegoibjDuwhf screening for suspected conditions (not mental disorders or infectious disease) (8 sources)Encounter for screening for malignant neoplasm of cervix; Translations: [Patient encounter status]Onset: 15-35-0666LvfuroyjYujrp upper respiratory infections (9 sources)Streptococcal sore throat; Translations: [Strep throat]Onset: 05-01-2021 Resolved: 16-53-4991QzddgdhjXokiqfwv codes; unclassified (2 sources)Gestation period, 11 weeks; Translations: [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 ]22-21-4143YwjajtnqPzojhzxm codes; unclassified (2 sources)Gestation period, 15 weeks; Translations: [15 weeks gestation of ]78-50-8375WmzokcjzGrhmslqk codes; unclassified (2 sources)Gestation period, 19 weeks; Translations: [19 weeks gestation of ]66-70-9678GboivtvlYokaoqaz codes; unclassified (2 sources)Gestation period, 23 weeks; Translations: [23 weeks gestation of ]70-18-1890KgsbizeiReyywgvd codes; unclassified (2 sources)Gestation period, 27 weeks; Translations: [27 weeks gestation of ]34-35-3911IdlmjdxsJcomjuxy codes; unclassified (2 sources)Gestation period, 29 weeks; Translations: [29 weeks gestation of ]17-22-1176FlvlpptbNepdrkxi codes; unclassified (2 sources)Gestation period, 31 weeks; Translations: [31 weeks gestation of ]91-85-2470EssejtzkIpuunsqd codes; unclassified (2 sources)Gestation period, 33 weeks; Translations: [33 weeks gestation of ]39-63-8378HyxqpaveWvbiwfzj codes; unclassified (2 sources)Gestation period, 35 weeks; Translations: [35 weeks gestation of ]36-74-5713RsokkhasYzgaffebu-related disorders (20 sources)Cigarette smoker ; Translations: [Nicotine dependence, cigarettes, uncomplicated]Onset: 930243-85-0497BxykmfiCvzucdnnyma injury; contusion (1 source)Contusion of left knee; Translations: [Contusion of left knee, initial encounter]EpisodicSyncope (2 sources)Syncope; Translations: [Syncope]Onset: 54-89-6264BkbgjkabGspervs disorders (20 sources)Evan thyroiditis; Translations: [Autoimmune thyroiditis]Onset: 867724-20-9547ZtvkyoiGcsjnigdrvkl (2 sources)Unknown / UNK(Unknown)Onset: 13-96-1185Byyulpiwbabc (2 sources)New Patient; Translations: [New Patient]Onset: 32-63-6976Upeetlscglee (2 sources)POTSOnset: 11-27-2024 Past or Other Problems Problem ClassificationProblemDateDocumented DateEpisodic/ChronicChronic obstructive pulmonary disease and bronchiectasis (1 source)Bronchitis, not specified as acute or chronicOnset: 08-21-2021 Resolved: 20-09-7999AbvklljjSulhualae (5 sources)Influenza; Translations: [Influenza A]Other circulatory disease (4 sources)Orthostatic hypotension; Translations: [ORTHOSTATIC HYPOTENSION] Onset: 68-70-4541DourhwpvHwzlu circulatory disease (20 sources)Low blood pressure; Translations: [Hypotension, unspecified]Onset: 364080-80-6276WxjqwtejNaaqn non-traumatic joint disorders (20 sources)Pain in left knee; Translations: [Pain in joint, lower leg]Onset: 998970-58-7101QkduqmbvHyuxg nutritional; endocrine; and metabolic disorders (20 sources)Body mass index 25-29 - overweight; Translations: [Overweight]Onset: 12-10-2022 Resolved: 293409-41-4002UkrotqevRxodfrm cyst (20 sources)Cyst of ovary; Translations: [Unspecified ovarian cyst, unspecified side]Onset: 542964-36-1628Aopihlwy Results Test NameValueInterpretationReference RangeFacilityALL THYROID STIM HORMONEon 67-81-9611Rtuakvygicqewi and review of laboratory resultsAbnormalNOPhelps Health TSH Qn0.159 m[IU]/LLowNODE HealthcareCLINISYNCNOMS HealthcareUS OB BPP W NON-STRESSon 27-84-[place]156[place]zw[place], [place] [address] Ultrasound Report Signed Patient: ALETA CASTRO MR#: [id number] : 2000 Acct:[id number] Age/Sex: 24 / F ADM Date: 01/23/25 Loc: US Attending Dr: Doc Thomas D.O. Ordering Physician: Doc Thomas D.O. Date of Service: 01/23/25 Procedure(s): US OB BPP w non-stress Accession Number(s): [id number] cc: Doc Thomas D.O.; ROSALIE PAYNE [place] [id number] Patient Name: ALETA CASTRO MRN: [id number] date: 2000 Sex: F Assigned Patient Location: [facility] Current Patient Location: [facility] Accession/Order Number: [id number] Exam Date: 01/23/2025 08:41 Report Date: 01/23/2025 [...] Dalton M.D. 01/23/2025 9:25 AM Dictation Location: [place] [address] Electronically authenticated by: [id number] Y Date: 01/23/2025 09:25 Dictated By: Emmanuel Dalton M.D. Signed By: 01/23/25927 DD/ 4 TD/TT: Gallery Host:NINAHRadiology, Radiologist, - 01/23/2025 [place] [address] Ultrasound Report Signed Patient: ALETA CASTRO MR#: [id number] : 2000 Acct:[id number] Age/Sex: 24 / F ADM Date: 01/23/25 Loc: US Attending Dr: Doc Thomas D.O. Ordering Physician: Doc Thomas D.O. Date of Service: 01/23/25 Procedure(s): US OB BPP w non-stress Accession Number(s): [id number] cc: Doc Thomas D.O.; ROSALIE PAYNE [place] [address] Patient Name: ALETA CASTRO MRN: [id number] date: 2000 Sex: F Assigned Patient Location: [facility] Current Patient Location: [facility] Accession/Order Number: [id number] Exam Date: 01/23/2025 08:41 Report Date: 01/23/2025 [...] Dalton M.D. 01/23/2025 9:25 AM Dictation Location[facility] Electronically authenticated by: [id number] Y Date: 01/23/2025 09:25 Dictated By: Emmanuel Dalton M.D. Signed By: 01/23/25927 DD/ 4 TD/TT: Gallery Host: KYE HealthcareRadiology Study observation (narrative)NOMS HealthcareUS OB BPP W NON-STRESSOrdered By: Radiologist Radiology on 01-19-2765TRBL [employer] Work Phone: US OB BPP W NON-STRESSon 76-26-6324Ctv[place], [place] [address] Ultrasound Report Signed Patient: ALETA CASTRO MR#: [id number] : 2000 Acct:[id number] Age/Sex: 24 / F ADM Date: 01/20/25 Loc: [facility] Attending Dr: Doc Thomas D.O. Ordering Physician: Doc Thomas D.O. Date of Service: 01/20/25 Procedure(s): US OB BPP w non-stress Accession Number(s): [id number] cc: Doc Thomas D.O.; ROSALIE PAYNE [place] [phone] Patient Name: ALETA CASTRO MRN: [id number] date: 2000 Sex: F Assigned Patient Location: [facility] Current Patient Location: Accession/Order Number: [id number] Exam Date: 01/20/2025 15:17 Report Date: 01/20/2025 [...] [place] M.D. 01/20/2025 5:10 PM Dictation Location: [place] Electronically authenticated by: [id number] Y Date: 01/20/2025 17:10 Dictated By: Loi [place]ington D.O. Signed By: 01/20/251712 DD/ 09 TD/TT: Gallery Host:MARTINEadiologkehinde, Radiologist, - 01/20/2025 [place] [address] Ultrasound Report Signed Patient: ALETA CASTRO MR#: [id number] : 2000 Acct:[id number] Age/Sex: 24 / F ADM Date: 01/20/25 Loc: [facility] Attending Dr: Doc Thomas D.O. Ordering Physician: Doc Thomas D.O. Date of Service: 01/20/25 Procedure(s): US OB BPP w non-stress Accession Number(s): [id number] cc: Doc Thomas D.O.; ROSALIE PAYNE [place] [address] Patient Name: ALETA CASTRO MRN: [id number] date: 2000 Sex: F Assigned Patient Location: [facility] Current Patient Location: Accession/Order Number: [id number] Exam Date: 01/20/2025 15:17 Report Date: 01/20/2025 [...] Ellington M.D. 01/20/2025 5:10 PM Dictation Location: [place] Electronically authenticated by: [id number] Y Date: 01/20/2025 17:10 Dictated By: Loi Ell[place] D.O. Signed By: 01/20/251712 DD/ 09 TD/TT: Gallery Host: [facility] HealthcareRadiology Study observation (narrative)NOMS HealthcareUS OB BPP W NON-STRESSOrdered By: Radiologist Radiology on 71-63-1892ISDK Healthcare Work Phone: Urinalysis macro (dipstick) panel [...] mg/dLNOMS HealthcareNOMS HealthcareUS OB BPP W NON-STRESSon 50-11-3408[address] [address] Ultrasound Report Signed Patient: ALETA CASTRO MR#: [id number] : 2000 Acct:[id number] Age/Sex: 24 / F ADM Date: 01/11/25 Loc: US Attending Dr: Doc Thomas D.O. Ordering Physician: Doc Thomas D.O. Date of Service: 01/11/25 Procedure(s): US OB BPP w non-stress Accession Number(s): [id number] cc: Doc Thomas D.O.; ROSALIE PAYNE The [address] [id number] Patient Name: ALETA CASTRO MRN: [id number] date: 2000 Sex: F Assigned Patient Location: [facility] Current Patient Location: Accession/Order Number: [id number] Exam Date: 01/11/2025 15:03 Report Date: 01/11/2025 [...] Aguilar M.D. 01/11/2025 9:15 PM Dictation Location: [place] [address] Electronically authenticated by: [id number] Y Date: 01/11/2025 21:15 Dictated By: Deshaun Aguilar M.D. Signed By: 01/11/252117 DD/ 14 TD/TT: Gallery Host:MARTINEadiology, Radiologist, MD - 01/11/2025 [place] [address] Ultrasound Report Signed Patient: ALETA CASTRO MR#: [id number] : 2000 Acct:[id number] Age/Sex: 24 / F ADM Date: 01/11/25 Loc: US Attending Dr: Doc Thomas D.O. Ordering Physician: Doc Thomas D.O. Date of Service: 01/11/25 Procedure(s): US OB BPP w non-stress Accession Number(s): [id number] cc: Doc Thomas D.O.; ROSALIE PAYNE [place] [phone] Patient Name: ALETA CASTRO MRN: [id number] date: 2000 Sex: F Assigned Patient Location: [facility] Current Patient Location: Accession/Order Number: [id number] Exam Date: 01/11/2025 15:03 Report Date: 01/11/2025 [...] Aguilar M.D. 01/11/2025 9:15 PM Dictation Location: [place] [address] Electronically authenticated by: [id number] Y Date: 01/11/2025 21:15 Dictated By: Deshaun Aguilar M.D. Signed By: 01/11/252117 DD/ 14 TD/TT: Gallery Host: KYE HealthcareRadiology Study observation (narrative)NOMS HealthcareUS OB BPP W NON-STRESSOrdered By: Radiologist Radiology on 75-64-2144PUDT Healthcare Work Phone: Urinalysis macro (dipstick) panel [...] mg/dLNOMS HealthcareNOMS HealthcareUS OB BPP W NON-STRESSon 32-07-9417GpeNob[place], [place] [address] Ultrasound Report Signed Patient: ALETA CASTRO MR#: [id number] : 2000 Acct:[id number] Age/Sex: 24 / F ADM Date: 01/02/25 Loc: US Attending Dr: Doc Thomas D.O. Ordering Physician: Doc Thomas D.O. Date of Service: 01/02/25 Procedure(s): US OB BPP w non-stress Accession Number(s): [id number] cc: Doc Thomas D.O.; ROSALIE PAYNE [place] [phone] Patient Name: ALETA CASTRO MRN: [id number] date: 2000 Sex: F Assigned Patient Location: [facility] Current Patient Location: Accession/Order Number: [id number] Exam Date: 01/02/2025 09:00 Report Date: 01/02/2025 [...] Dalton M.D. 01/02/2025 3:02 PM Dictation Location: [place] [address] Electronically authenticated by: [id number] Y Date: 01/02/2025 15:02 Dictated By: Emmanuel Dalton M.D. Signed By: 01/02/25 1505 DD/ 1502 TD/TT: Gallery Host:TBHRadiology, Radiologist, - 01/02/2025 [place] [address] Ultrasound Report Signed Patient: ALETA CASTRO MR#: [id number] : 2000 Acct:[id number] Age/Sex: 24 / F ADM Date: 01/02/25 Loc: US Attending Dr: Doc Thomas D.O. Ordering Physician: Doc Thomas D.O. Date of Service: 01/02/25 Procedure(s): US OB BPP w non-stress Accession Number(s): [id number] cc: Doc Thomas D.O.; ROSALIE PAYNE [address] [address] Patient Name: ALETA CASTRO MRN: [id number] date: 2000 Sex: F Assigned Patient Location: [facility] Current Patient Location: Accession/Order Number: [id number] Exam Date: 01/02/2025 09:00 Report Date: 01/02/2025 [...] Dalton M.D. 01/02/2025 3:02 PM Dictation Location: [place] [address] Electronically authenticated by: [id number] Y Date: 01/02/2025 15:02 Dictated By: Emmanuel Dalton M.D. Signed By: 01/02/25 150 DD/ 150 TD/TT: Gallery Host: KYE HealthcareRadiology Study observation (narrative)NOMS HealthcareUS OB BPP W NON-STRESSOrdered By: Radiologist Radiology on 89-63-4082MRREFreeman [facility] Work Phone: aLL THYROID STIM HORMONEon 38-50-9069Dtdicqbcucwhvc and review of laboratory resultsAbnoLehigh Valley Health Network Qn0.131 m[IU]/LLow NOMS HealthcareCLINISYNCNOMS HealthcareUS OB BPP W NON-STRESSon 12-26-2024 [place] [address] Ultrasound Report Signed Patient: ALETA CASTRO MR#: [id number] : 2000 Acct:[id number] Age/Sex: 24 / F ADM Date: 12/26/24 Loc: US Attending Dr: Doc Thomas D.O. Ordering Physician: Doc Thomas D.O. Date of Service: 12/26/24 Procedure(s): US OB BPP w non-stress Accession Number(s): [id number] cc: Doc Thomas D.O.; ROSALIE PAYNE [address] [address] Patient Name: ALETA CASTRO MRN: [id number] date: 2000 Sex: F Assigned Patient Location: US Current Patient Location: Accession/Order Number: [id number] Exam Date: 12/26/2024 09:00 Report Date: 12/26/2024 [...] Aguilar M.D. 12/26/2024 11:19 AM Dictation Location: [place] [address] Electronically authenticated by: [id number] Y Date: 12/26/2024 11:19 Dictated By: Deshaun Aguilar M.D. Signed By: 12/26/24 1122 DD/ 1119 TD/TT: Gallery Host:TBHRadiology, Radiologist, MD - 12/26/2024 [place] [address] Ultrasound Report Signed Patient: ALETA CASTRO MR#: [id number] : 2000 Acct:[id number] Age/Sex: 24 / F ADM Date: 12/26/24 Loc: US Attending Dr: Doc Thomas D.O. Ordering Physician: Doc Thomas D.O. Date of Service: 12/26/24 Procedure(s): US OB BPP w non-stress Accession Number(s): [id number] cc: Doc Thomas D.O.; ROSALIE PAYNE The [address] [address] Patient Name: ALETA CASTRO MRN: [id number] date: 2000 Sex: F Assigned Patient Location: US Current Patient Location: Accession/Order Number: [id number] Exam Date: 12/26/2024 09:00 Report Date: 12/26/2024 [...] Aguilar M.D. 12/26/2024 11:19 AM Dictation Location: [place] [address] Electronically authenticated by: [id number] Y Date: 12/26/2024 11:19 Dictated By: Deshaun Aguilar M.D. Signed By: 12/26/24 1122 DD/ 1119 TD/TT: Gallery Host: KYE HealthcareRadiology Study observation (narrative)NOMS HealthcareUS OB BPP W NON-STRESSOrdered By: Radiologist Radiology on 02-85-3086PXRF [facility] Work Phone: US OB GROWTHon [phone], [place] [address] Ultrasound Report Signed Patient: ALETA CASTRO MR#: [id number] : 2000 Acct:[id number] Age/Sex: 24 / F ADM Date: 12/26/24 Loc: US Attending Dr: Doc Thomas D.O. Ordering Physician: Doc Thomas D.O. Date of Service: 12/26/24 Procedure(s): US OB growth Accession Number(s): [id number] cc: Doc Thomas D.O.; ROSALIE PAYNE [place] [id number] Patient Name: ALETA CASTRO MRN: [id number]:[id number] date: 2000 Sex: F Assigned Patient Location: Current Patient Location: Accession/Order Number: [id number] Exam Date: 12/26/2024 09:00 Report Date: 12/26/2024 11:31 At the request of: DOC THOMAS DO Procedure: US OB growth Obstetric ultrasound for growth INDICATION: Evan's disease FINDINGS: Single live anterior cephalic presentation longitudinal lie. Amniotic fluid index 12.4 cm between the gestational age fifth and 95th percentile. Largest pocket of fluid 5.1 cm. heart rate 1 52 bpm. motion documented by the light rail signal technician.. Estimated weight 2093 g 71.4%. Gestation age 32 weeks and 0 days. Biparietal diameter 7.93 m. Head circumference 30.7 cm. Otherwise the 10.6 cm. Abdominal circumference 28.9 cm. Femur length 6.4 cm. US/US OB growth IMPRESSION: Single live intrauterine of approximately 30 weeks Impression dictated by: Deshaun Aguilar M.D. 12/26/2024 11:31 AM Dictation Location: [place] [address] Electronically authenticated by: [id number] Y Date: 12/26/2024 11:31 Dictated By: Deshaun Aguilar M.D. Signed By: 12/26/24 1133 DD/ 1131 TD/TT: Gallery Host:TBHRadiology, Radiologist, MD - 12/26/2024 [place] [address] Ultrasound Report Signed Patient: ALETA CASTRO MR#: [id number] : 2000 Acct:[id number] Age/Sex: 24 / F ADM Date: 12/26/24 Loc: Attending Dr: Doc Thomas D.O. Ordering Physician: Doc Thomas D.O. Date of Service: 12/26/24 Procedure(s): US OB growth Accession Number(s): [id number] cc: Doc Thomas D.O.; ROSALIE PAYNE [address] [address] Patient Name: ALETA CASTRO MRN: [id number] date: 2000 Sex: F Assigned Patient Location: Current Patient Location: Accession/Order Number: [id number] Exam Date: 12/26/2024 09:00 Report Date: 12/26/2024 11:31 At the request of: DOC THOMAS DO Procedure: US OB growth Obstetric ultrasound for growth INDICATION: Evan's disease FINDINGS: Single live anterior cephalic presentation longitudinal lie. Amniotic fluid index 12.4 cm between the gestational age fifth and 95th percentile. Largest pocket of fluid 5.1 cm. heart rate 1 52 bpm. motion documented by the light rail signal technician.. Estimated weight 2093 g 71.4%. Gestation age 32 weeks and 0 days. Biparietal diameter 7.93 m. Head circumference 30.7 cm. Otherwise the 10.6 cm. Abdominal circumference 28.9 cm. Femur length 6.4 cm. US/US OB growth IMPRESSION: Single live intrauterine of approximately 30 weeks Impression dictated by: Deshaun Aguilar M.D. 12/26/2024 11:31 AM Dictation Location: [place] [address] Electronically authenticated by: [id number] Y Date: 12/26/2024 11:31 Dictated By: Deshaun Aguilar M.D. Signed By: 12/26/24 1133 DD/ 1131 TD/TT: Gallery Host: KYE HealthcareRadiology Study observation (narrative)[facility] HealthcareUS OB GROWTHOrdered By: Radiologist Radiology on 26-93-4989ZOXLFreeman [facility]os[facility] Work Phone: Urinalysis macro (dipstick) panel (U)on 12-23-2024 Bilirubin, UANegativeNegative - 4(70) +++ mg/dLNOMS HealthcareBlood, UANegative Negative - 50 Randall/mcLNOMS HealthcareClarity, UAClearNOMS HealthcareColor, UA YellowNOMS HealthcareGlucose, UA1+Negative - 1999(110) ++++ mg/dLNODE Healthcare Interpretation and review of laboratory resultsAbnormalNODE HealthcareKetones, UANegativeNegative - 160(16) ++++ mg/dLNOMS HealthcareLeukocytes, UATrace Negative - 500+++ Rick/mcLNOMS HealthcareNitrite, UANegativeNegative - Positive NOMS HealthcarepH, UA65 - 9NOMS HealthcareProtein, UANegativeNegative - 2000(20) ++++ mg/dLNOMS HealthcareSpec Grav, UA1.0151 - 1.03NOMS HealthcareUrobilinogen, UA2.00.2 - 12 mg/dLNOMS HealthcareNOMS HealthcareUrinalysis macro (dipstick) panel (U)on 80-31-9294Ndgdssjbs, UANegativeNegative - 4(70) +++ mg/dLNOMS HealthcareBlood, UANegativeNegative [...] UA0.20.2 - 12 mg/dLNOMS HealthcareNOMS HealthcareOffice Visiton 45-15-0432Qwnguq-up visit [id number] Aleta Castro 2000 F Date Provider Department Center 11/27/2024 [address]-NEBRULLESA SINGH TRES [facility] Family History Family Status - Relation Status Age at Mother Alive Father Alive Level of Service:[address]48 [place] OFFICE/OUTPATIENT NEW LOW MDM 30 MINUTES Reason for Visit and Comments: New Patient [632] - New patient here today to establish care with cardiology Syncope [506] POTS [Other] Positive tilt table [Other] 6 months [Other]NormalUnSelect Medical TriHealth Rehabilitation HospitalUrinalysis macro (dipstick) panel (U)on 12-05-4292Scblrvubn, UAPositiveNegative - 4(70) +++ mg/dLNOMS HealthcareComment on [...] 12 mg/dLNOMS HealthcareNOMS HealthcareCA ECHO DOPPLER COMPLETEon 15-12-7956Zll[place], [place] [address] Cardiology Report Signed Patient: ALETA CASTRO MR#: [id number] : 2000 Acct:[id number] Age/Sex: 24 / F ADM Date: 11/12/24 Loc: CARD Attending Dr: Luna Steen Ordering Physician: Luna Steen Date of Service: 11/12/24 Procedure(s): CA echo doppler complete Accession Number(s): [id number] cc: Luna Steen; ROSALIE PAYNE Patient Name: ALETA CASTRO MR#: [id number] : 2000 Exam Date: 11/12/2024 Ordering Doctor: LUNA STEEN [facility] ECHOCARDIOGRAM REPORT PROCEDURE: CA ECHO DOPPLER [...] not included)...TBHRadiology, Radiologist, MD - 11/24/2024 [place] [address] Cardiology Report Signed Patient: ALETA CASTRO MR#: [id number] : 2000 Acct:[id number] Age/Sex: 24 / F ADM Date: 11/12/24 Loc: CARD Attending Dr: Luna Steen Ordering Physician: Luna Steen Date of Service: 11/12/24 Procedure(s): CA echo doppler complete Accession Number(s): [id number] cc: Luna Steen; ROSALIE PAYNE Patient Name: ALETA CASTRO MR#: [id number] : 2000 Exam Date: 11/12/2024 Ordering Doctor: LUNA STEEN [facility] ECHOCARDIOGRAM REPORT PROCEDURE: CA ECHO DOPPLER [...] Signed By: 11/24/24 1640 DD/ 1639 TD/TT: Gallery Host: KYE [facility] HospitalRadiology Study observation (narrative)[facility] HospitalCA ECHO DOPPLER COMPLETEOrdered By: Radiologist Radiology on 80-27-3521[facility] Work Phone: ecg 12-LEADon [phone], [place] [address] Electrocardiograph Report Signed Patient: ALETA CASTRO MR#: [id number] : 2000 Acct:[id number] Age/Sex: 24 / F ADM Date: 11/12/24 Loc: CARD Attending Dr: Luna Steen Ordering Physician: Luna Steen Date of Service: 11/12/24 Procedure(s): ECG 12 lead Accession Number(s): [id number] cc: [facility] Test Date: 2024-11-12 Pat Name: ALETA CASTRO Department: Room: - 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 Signed By: 11/13/24133311/13/24 133 DD/ 1206 TD/TT: Gallery Host: KYE Garay 12-LEADOrdered By: Radiologist Radiology on 96-06-7762JAJN [employer] Work Phone: ECG 12-LEADon 88-76-6051Twtfseslz Study observation (narrative)NOMS HealthcareALL CBC WITH AUTO DIFFon 54-09-4927PJRLITPYH ABSOLUTE SZZA5UPZE HealthcareBasophils/100 WBC (Bld)0.2 %0.2 - 2.0 %[facility] Eosinophils/100 WBC (Bld)0.5 %Low0.9 - 7.0 %NOMS HealthcareErythrocyte distribution width (RBC) [Ratio]12.7 %11.0 - 15.0 %NOMS HealthcareHematocrit (Bld) [Volume fraction]31.2 %Low36.0 - 48.0 %NOM HealthcareHemoglobin (Bld) [Mass/Vol]10.8 g/dLLow12.0 - 16.0 g/dLNODE HealthcareIMMATURE GRANULOCYTES ABS AUTO0.01NOMS HealthcareImmature granulocytes/100 WBC (Bld)0.2 %0.0 - 0.5 %NOM HealthcareInterpretation and review of laboratory resultsAbnormalNODE Healthcare LYMPHOCYTES ABSOLUTE VZYL0DxwTMNC HealthcareLymphocytes/100 WBC (Bld)15 %Low20.5 - 60.0 %[facility]osho HospitalMCH (RBC) [Entitic mass]32.3 pg26.7 - 34.0 pgNOPhelps HealthMCHC (RBC) [Mass/Vol]34.6 g/dL29.9 - 35.2 g/dLNOPhelps HealthMCV (RBC) [Entitic vol]93.4 fL81.0 - 99.0 fLNODE HealthcareMONOCYTES ABSOLUTE AUTO0.5NOMS HealthcareMonocytes/100 WBC (Bld)7.7 %1.7 - 12.0 %NOMS HealthcareNEUTROPHILS ABSOLUTE OSID6QUQR HealthcareNeutrophils/100 WBC (Bld)76.4 %High43.0 - 75.0 % NOM HealthcarePlatelet mean volume (Bld) [Entitic vol]9.7 fL9.5 - 13.5 fLNODE HealthcareTBH EO #0NOMS HealthcareTBH VLL091XZPO HealthcareTB RBC3.34LowNOMS HealthcareTBH WBC6.6NOMS HealthcareCLINISYNCNOMS HealthcareIGP,APTIMA HPV,AGE GDLNon 95-10-1405GXZ GDLN ACOG TESTINGNote.ELIZABETH MASON INFIRMARYS HealthcareComment on above:TESTS RESULT FLAG UNITS REF RANGE LAB Clinician Provided Cytology Information Source.............Endocervix No. of containers..01 ThinPrep Vial Age Ernieo CESAR Yaa... FLAG LEGEND: L-Low Normal,H-High Normal,LL-Alert Low,HH-Alert High <-Panic Low,>-Panic High,A-Abnormal,AA-Critical Abnormal Performed at: 01 =G [address] [address] Ludy Hector MD, IGP, RFX APTIMA HPV ASCUNote.[facility] HealthcareComment on above:TESTS RESULT FLAG UNITS REF RANGE LAB DIAGNOSIS: 02 NEGATIVE FOR INTRAEPITHELIAL LESION OR MALIGNANCY. THIS SPECIMEN WAS RESCREENED PART OF OUR ESTIMATOR AND DRAFTER PROGRAM. Specimen adequacy: 02 Satisfactory for evaluation. No endocervical component is identified. Performed by: 02 Brionna Mello Fire And Explosion Investigator ([facility]) QC reviewed by: 02 Polina Simons Fire And Explosion Investigator . 02 Note: Note 02 The Pap [...] <-Panic Low,>-Panic High,A-Abnormal,AA-Critical Abnormal Performed at: [address] [address] Ludy Hector MD, Performed at: = - [facility] [id number] Shaping Machine Tender: Ludy Hector MD, Phone: [phone] Performed at: [facility] [address] [id number] Shaping Machine Tender: Ludy Hector MD, Phone: [phone] BRUSH-SPATULA ENDOCERVIX CLINISYNCNOMS HealthcareRECURRENT VAGINITIS (HTRX)on 42-64-8895EVTKRHBCQ VAGINAE 0NOMS HealthcareATOPOBIUM VAGINAENot detectedNOMS HealthcareBVAB 2,3 (BACTERIAL VAGINOSIS ASSOCIATED BACTERIA 2, 3); MOBILUNCUS QKV1SGDX HealthcareBVAB 2,3 (BACTERIAL VAGINOSIS ASSOCIATED BACTERIA 2, 3); MOBILUNCUS SPPNot detectedNOMS HealthcareCANDIDA ALBICANS, PARAPSILOSIS, EINSNVHUBR9YTUN HealthcareCANDIDA ALBICANS, PARAPSILOSIS, TROPICALISNot detectedNOMS HealthcareCANDIDA GLABRATA0 NOMS HealthcareCANDIDA GLABRATANot detectedNOMS HealthcareCANDIDA EYISJB0PLEF HealthcareCANDIDA KRUSEINot detectedNOMS HealthcareCHLAMYDIA UTSBFWZFMJQ5LEAJ HealthcareCHLAMYDIA TRACHOMATISNot detectedNOMS HealthcareGARDNERELLA VAGINALIS0 NOMS HealthcareGARDNERELLA VAGINALISNot detectedNOMS HealthcareMEGASPHAERA (TYPES 1, 2)0NOMS HealthcareMEGASPHAERA (TYPES 1, 2)Not detectedNOMS Healthcare MYCOPLASMA ZGOJKBTFZV0XYUE HealthcareMYCOPLASMA GENITALIUMNot detectedNOMS HealthcareNEISSERIA KAMQCOUBZFC4GYZN HealthcareNEISSERIA GONORRHOEAENot detected NOMS HealthcareTRICHOMONAS ECCOXSZPB3DCKE HealthcareTRICHOMONAS VAGINALISNot detectedNOMS HealthcareNOMS HealthcareUrinalysis macro (dipstick) panel (U)on 49-23-8483Nhdimlfcr, UAPositiveNegative - 4(70) +++ mg/dLNOMS HealthcareBlood, UANegativeNegative [...] 12 mg/dLNOMS HealthcareNOMS HealthcareUS OB CERVICAL LENGTHon 76-22-3301K[address] [address] Ultrasound Report Signed Patient: ALETA CASTRO MR#: [id number] : 2000 Acct:[id number] Age/Sex: 24 / F ADM Date: 10/06/24 Loc: US Attending Dr: Doc Thomas D.O. Ordering Physician: Doc Thomas D.O. Date of Service: 10/06/24 Procedure(s): US OB cervical length Accession Number(s): [id number] cc: Doc Thomas D.O.; ROSALIE PAYNE [place] [address] Patient Name: ALETA CASTRO MRN: [facility]:[id number] date: 2000 Sex: F Assigned Patient Location: US Current Patient Location: US Accession/Order Number: [id number] Exam Date: 10/06/2024 14:25 Report Date: 10/06/2024 [...] Jr., D.O. 10/06/2024 2:26 PM Dictation Location: [place] [address] Electronically authenticated by: [id number] Y Date: 10/06/2024 14:26 Dictated By: Jermaine Nguyễn M.D. Signed By: 10/06/24 1428 DD/ 1426 TD/TT: Gallery Host:NINAHRadiology, Radiologist, MD - 10/06/2024 [place] [address] Ultrasound Report Signed Patient: ALETA CASTRO MR#: [id number] : 2000 Acct:[id number] Age/Sex: 24 / F ADM Date: 10/06/24 Loc: US Attending Dr: Doc Thomas D.O. Ordering Physician: Doc Thomas D.O. Date of Service: 10/06/24 Procedure(s): US OB cervical length Accession Number(s): [id number] cc: Doc Thomas D.O.; ROSALIE PAYNE [place] [id number] Patient Name: ALETA CASTRO MRN: [id number]:[id number] date: 2000 Sex: F Assigned Patient Location: US Current Patient Location: US Accession/Order Number: [id number] Exam Date: 10/06/2024 14:25 Report Date: 10/06/2024 [...] Jr., D.O. 10/06/2024 2:26 PM Dictation Location: [place] [address] Electronically authenticated by: [id number] Y Date: 10/06/2024 14:26 Dictated By: Jermaine Nguyễn M.D. Signed By: 10/06/24 1428 DD/ 25 TD/TT: Gallery Host: KYE [facility] HospitalRadiology Study observation (narrative)[facility] OB CERVICAL LENGTHOrdered By: Radiologist Radiology on 09-86-0732DIJU [employer] Work Phone: US OB 14+ WEEKS ANATOMY SCANon 89-13-4093JX OB 14+ WEEKS ANATOMY SCANFINDINGS: A single, [...] Delivery: 02/20/25 Gestational Age as of 09/02/2024: 39j8rCosaomrppm macro (dipstick) panel (U)on 66-91-0545Vudltcmiu, UANegativeNegative - 4(70) +++ mg/dLNOMS HealthcareBlood, UANegativeNegative [...] mg/dLNOMS HealthcareNOMS Healthcare ALL THYROID STIM HORMONEon 39-24-1401AGD Qn0.836 m[IU]/LNOMS HealthcareCLINISYNC NOMS HealthcareUrinalysis macro (dipstick) panel (U)on 26-11-3917Nrwbofjyl, UA NegativeNegative - 4(70) +++ mg/dLNOMS HealthcareBlood, [...] 12 mg/dLNOMS HealthcareNOMS HealthcareALL THYROID STIM HORMONEon 39-56-8171AQM Qn1.413 m[IU]/LNOMS HealthcareCLINISYNCNOMS HealthcareUrinalysis macro (dipstick) panel (U)on 24-27-5265Bdrwhwdfb, UANegativeNegative - 4(70) +++ mg/dLNOMS HealthcareBlood, UANegativeNegative [...] UA1.00.2 - 12 mg/dLNOMS HealthcareNOMS HealthcareBOX TESTon 84-19-3820XDQ TEST SENT OUTUNITY NOMS NdauwjtexvPHG9MCLRHIKYS ZaejufualwXHP19/3/25NODE HealthcareUNGALION COMMUNITY [facility]ITAL CLINISYNCNOMS HealthcareTBH DRUG SCREEN RAPID (URINE)on 41-72-3561KFIBZLJEJCG SCREEN URINENegativeNEGATIVENOMS HealthcareBARBITURATES SCREEN URINENegative NEGATIVENOMS HealthcareBENZODIAZEPINES [...] URINENegativeNEGATIVENOMS HealthcareCLINISYNCNOMS HealthcareHCG ( test) Ql (U)on 48-83-9770Rnmlfkihqcczhn and review of laboratory resultsAbnormalNOMS HealthcarePreg Test, UrPositiveNegativeNOMS HealthcareNOMS HealthcareUS OB TRANSVAGINALon 88-07-4468NU OB TRANSVAGINALEXAM: US OB TRANSVAGINAL HISTORY: Dating. [...] II, MD, PHD at 19-Jul-2024 08:55:15 PM [facility] TeleradiologyNormalNot AvailableComment on above:Order Comment: US OB TRANSVAGINAL No LMP recorded.Urinalysis macro (dipstick) panel (U)on 58-65-0019Flivhlgfb, UA NegativeNegative - 4(70) +++ mg/dLNOMS HealthcareBlood, UANegativeNegative - 50 Randall/mcLNOMS HealthcareClarity, UAClearNOMS HealthcareColor, UAYellowNOMS HealthcareGlucose, UANegativeNegative - 2000(110) ++++ mg/dLNOMS Healthcare Interpretation and review of laboratory resultsNormalNODE HealthcareKetones, UA NegativeNegative - 160(16) ++++ mg/dLNOMS HealthcareLeukocytes, UANegative Negative - 500+++ Rick/mcLNOMS HealthcareNitrite, UANegativeNegative - Positive NOMS HealthcarepH, UA6.55 - 9NOMS HealthcareProtein, UANegativeNegative - 2000(20) ++++ mg/dLNOMS HealthcareSpec Grav, UA1.021 - 1.03NOMS Healthcare Urobilinogen, UA1.00.2 - 12 mg/dLNOMS HealthcareNOMS HealthcareCBC W Auto Differential panel (Bld)on 50-32-9039Mxks form neutrophils (Bld) [#/Vol]CANCELED NOMS HealthcareComment on above:Result canceled by the ancillary.Band form neutrophils/100 WBC (Bld)CANCELED%NOMS HealthcareComment on above:Result canceled by the ancillary.Basophils (Bld) [#/Vol]19 10*3/uLNOMS Healthcare Basophils/100 WBC (Bld)0.4 %NOM HealthcareBlasts (Bld) [#/Vol]CANCELED0 cells/uLNOMS HealthcareComment on above:Result canceled by the ancillary. Blasts/100 WBC (Bld)CANCELED%NOMS HealthcareComment on above:Result canceled by the ancillary.Eosinophils (Bld) [#/Vol]91 10*3/uLNOMS HealthcareEosinophils/100 WBC (Bld)1.9 %[facility] HealthcareErythrocyte distribution width (RBC) [Ratio]12.5 % 11.0 - 15.0 %NOM HealthcareHematocrit (Bld) [Volume fraction]38.9 %35.0 - 45.0 %[facility] HealthcareHemoglobin (Bld) [Mass/Vol]12.8 g/dL11.7 - 15.5 g/dLFreeman Neosho HospitalLymphocytes (Bld) [#/Vol]1282 10*3/uLNOMS HealthcareLymphocytes/100 WBC (Bld)26.7 %[facility] HospitalH (RBC) [Entitic mass]30.6 pg27.0 - 33.0 pgWright Memorial HospitalHC (RBC) [Mass/Vol]32.9 g/dL32.0 - 36.0 g/dLNODE HealthcareComment on above:For adults, a slight decrease in the calculated MCHC value (in the range of 30 to 32 g/dL) is most likely not clinically significant; however, it should be interpreted with caution in correlation with other red cell parameters and the patient's clinical condition. MCV (RBC) [Entitic vol]93.1 fL80.0 - 100.0 fLST. MARK'S HOSPITAL HealthcareMetamyelocytes (Bld) [#/Vol]CANCELED0 cells/uLNOMS HealthcareComment on above:Result [...] the ancillary.Nucleated RBC/100 WBC (Bld) [Ratio]CANCELED0 /100 WBCNODE Healthcare Comment on above:Result canceled by the [...] NOMS HealthcareIron and Iron binding capacity panelon 65-99-7341Eebx [Mass/Vol] 101 ug/dLNODE HealthcareIron binding capacity [Mass/Vol]340NOMS HealthcareIron saturation [Mass fraction]30NOMS HealthcareLaboratory - Chemistry and Chemistry - challengeon 48-78-9585Bqzzlga [Mass/Vol]4.8 g/dL3.6 - 5.1 g/dLNODE Healthcare Albumin/Globulin [Mass ratio]1.8 {ratio}NOMS HealthcareALP [Catalytic [...] (S/P/Bld) [Vol rate/Area]122 mL/min/{1.73_m2}> OR = 60 mL/min/1.31y5DWES HealthcareGlobulin (S) [Mass/Vol]2.6 g/dLNOMS HealthcareGlucose [Mass/Vol]95 mg/dL65 - 99 mg/dLNODE HealthcareComment on above: Fasting reference interval Potassium [Moles/Vol]4.2 mmol/L3.5 - 5.3 mmol/LNOMS HealthcareProtein [Mass/Vol] 7.4 g/dL6.1 - 8.1 g/dLNOMS HealthcareSodium [Moles/Vol]139 mmol/L135 - 146 mmol/LNOMS HealthcareUrea nitrogen [Mass/Vol]16 mg/dL7 - 25 mg/dLNOMS Healthcare Urea nitrogen/Creatinine [Mass ratio]SEE NOTE:NOMS HealthcareComment on above: Not Reported: BUN and Creatinine are within reference range. Laboratory - Serology - non-microon 34-09-1592Qmflhoivdonoj Ab Qn153 [IU]/mLHigh < or = 1 IU/mLNOMS HealthcareTPO Ab Qn27 [IU]/mLHighNIParkwest Medical Center Information 92-17-9656Pipahslhpuxife and review of laboratory resultsAbnormal [facility] Organization Information Site ID: QTW Name: [facility] Address: [address] [place] [id number] Director: Urvashi TaborAscension [facility] Organization Information Site ID: QPT Name: [facility] Address: [address] [facility], [address] [place] [address] Director: Yonis Beck MD[address] 17-06-2638Zyrd T3 [Mass/Vol] 3.6 pg/mLNormal2.3-4.2Quest DiagnosticsComment on above:Performed By: #### 859, 44573, 866 #### [facility] [place] [address] Senior Program Planner: Yonis Beck MDT, [facility] 19-38-6248Xwha T4 [Mass/Vol]1.1 ng/dLNormal0.8-1.8Quest DiagnosticsComment on above:Order Comment: FASTING:NO FASTING: NOPerformed By: #### 629, 09216, 866 #### [facility] [place] [address] Senior Program Planner: Yonis Mari 65-81-3162VKZ Qn1.98 m[IU]/LNormalQuest DiagnosticsComment on above:Result Comment: Reference Range > or = 20 Years 0.40-4.50 Ranges First trimester 0.26-2.66 Second trimester 0.55-2.73 Third trimester 0.43-2.91Performed By: #### 029, 92243, 866 #### [facility] [place] [address] Senior Program Planner: Yonis WOLF ( test) IA.rapid Ql (U)Ordered By: Marcelle Espinosa on 30-59-9884UAU ( test) Ql (U)NegativeTrinity Health System West CampusHCG,Urineon 13-56-2373Yggo HCG ( test) Ql (U) NegativeNoFormerly [facility], [facility] Physician GroupComment on above:Result Comment: PERFORMED BY: [place] [address] PATHOLOGIST INSPECTOR SCALES RAYMOND SUERO M.D.Performed By: #### [facility] #### [place] [address] USALon 05-54-5682TAbjkykvo: [id number] Received: 09/03/23 Status: FRANKLYN Gonzales Num: [id number] Spec Type: Surgical Subm Dr: Marcelle Espinosa [...] Location Account Attending Physician Aleta Castro / [id number] Marcelle Espinosa DO SPEC NUM: [id number] RECD: 09/03/23 STATUS: FRANKLYN GONZALES NUM: [id number] MIRIAM: 09/02/23- SUBM DR: Marcelle Espinosa DO ENTERED: 09/03/[address] [facility] [address]: SPEC TYPE: Surgical DEPT: S ORDERED: [...] mild squamous acanthosis and occasionally associated Specimen: [id number] Received: 09/03/23 Status: FRANKLYN Bradshawcharley Num: [id number] Spec Type: Surgical Subm Dr: Marcelle Espinosa, Tissues: A Small Intestine - Biopsy/Polyp (SMALL BOWEL BX) B GASTRIC FOR HP (GASTRIC HP) C Esophagus Biopsy (DISTAL ESOPHAGUS) D Esophagus Biopsy (PROXIMAL ESOPHAGUS) E Colon Biopsy (RANDOM RT COLON) F Colon Biopsy (RANDOM LT COLON) Procedures: HE/12, Gross/Micro L4/6, H PYLORI, IHC First AB Patient: Aleta Castro N [id number] (Continued) Specimen: [id number] Received: 09/03/23 (Continued) Pathological Diagnosis (Continued) Signed (signature on file) Heather Villegas MD 09/05/23 1417 Specimen: [id number] Received: 09/03/23 Status: FRANKLYN Gonzales Num: [id number] Spec Type: Surgical Subm Dr: Marcelle Espinosa DO Tissues: A Small Intestine - Biopsy/Polyp (SMALL BOWEL BX) B GASTRIC FOR HP (GASTRIC HP) C Esophagus Biopsy (DISTAL ESOPHAGUS) D Esophagus Biopsy (PROXIMAL ESOPHAGUS) E Colon Biopsy (RANDOM RT COLON) F Colon Biopsy (RANDOM LT COLON) Procedures: HE/12, Gross/Micro L4/6, H PYLORI, IHC First AB Patient: Aleta Castro N [id number] (Continued) Specimen: [id number] Received: 09/03/23 (Continued) Pathological Diagnosis (Continued) lymphocytic [...] entirely submitted (more content not included)...[facility] Physician GroupInsurance Correspondence Officeon 56-24-3825Zsnmyedok Correspondence [id number]#1.00TIFFNoSuburban Community Hospital & Brentwood HospitalIntraOperative Documentson 78-27-2127XqsrkEmvfkwfbw [id number]#1.00TIFTrinity Health System East CampusPostoperative Documentson 98-57-2383Iheqdfddzerqw Documents [id number]#1.00TIFTrinity Health System East CampusMain OR Intraoperative Recordon 41-54-6434Sunw OR Intraoperative Record IntraOp Document Type FT Summary Primary Physician: Myron Marroquin DO Finalized Date/Time: 04/25/23 09:04:33 Pt. Name: ALETA CASTRO/Sex: 2000 Female Med Rec #: [id number] Physician: Myron Marroquin DO Financial #: [id number] Pt. Type: A Room/Bed: [facility]/ Admit/Disch: 04/23/23 06:25:15 - 04/23/23 14:50:00 [...] assist with the block. Patient's heartrate 89, hv86-077% on room air. patient tolerated block well. [...] Haas Role Performed Anesthesiologist Surgeon - Primary Merchandise Appraiser - Primary Merchandising Specialist Time In 04/23/23 08:50:00 04/23/23 09:15:00 04/23/23 08:50:00 Time Out 04/23/23 10:59:00 04/23/23 10:44:00 04/23/23 10:59:00 Procedure KNEE ARTHROSCOPY W/ ACL KNEE ARTHROSCOPY W/ ACL KNEE ARTHROSCOPY W/ ACL REPAIR(Left) REPAIR(Left) REPAIR(Left) Comments , anesthesia supervisor blueprinting and photocopy Last Modified By: Souleymane RN, Lyle Comer RN, Lyle Comer RNLyle 04/23/23 10:59:32 04/23/23 10:59:32 04/23/23 10:59:32 Entry 4 Entry 5 Entry 6 Case Attendee Regulo Rodgers Laura C Wilhelm CST, Benjamin Role Performed Staff - Other Scrub - Primary FILM LOADER/SA Time In 04/23/23 08:50:00 04/23/23 08:50:00 04/23/23 [...] FT Pre-Care Text: Implements (more content not included)...[facility] Consent for Anesthesiaon 71-33-5914Uueyabn for Anesthesia [id number]#1.00TIFTrinity Health System East CampusDischarge Instructionson 75-30-3744Ytuaeafep Instructions [id number]#1.00[facility] Community HospitalIntraOperative Documentson 72-58-1112BzuqjHvgcailud Documents [id number]#1.00[facility] Community HospitalOperative Reporton 01-29-9723Zfssrjjxz ReportSURGERY DATE: 04/23/2023 RACING BOARD MARKER: Garry Camacho CST PREOPERATIVE DIAGNOSIS: Left knee anterior cruciate ligament tear POSTOPERATIVE DIAGNOSIS: Left knee anterior cruciate ligament tear OPERATION: Left knee diagnostic operative arthroscopy with autograft wtwm-mmvdju-iczn anterior cruciate ligament reconstruction with InternalBrace augmentation ANESTHESIA: General as well as regional block ANESTHESIOLOGIST: KARTHIKEYAN Peacock ESTIMATED BLOOD LOSS: 10 mL INTRAVENOUS FLUIDS: Please see the operative record SPECIMEN: None COMPLICATIONS: None IMPLANTS: Arthrex evqv-saivry-sezt Tightrope system with the button for the [...] The anterior cruciate ligament was reconstructed using dcgr-wpmphd-sgod from patellar tendon autograft with this InternalBrace [...] by over reaming with a 10 mm physiological chemist. Excess bone debris is again removed. The [...] tensioned on the femo (more content not included)...[facility] HospitalComment on above:Result Comment: Electronically Signed By: Myron Marroquin DO\.ammy\Date and Time Signed: 04/24/23 07:15 ESTPreoperative Documentson 60-14-2058Icroopwimcwy Documents [id number]#1.00TIFFNormalOhiohealth Grady Memorial HospitalConsent for Procedure/Surgeryon 49-93-2004Kxeiplb for Procedure/Surgery [id number]#1.00[facility] Community HospitalConsent for Treatmenton 91-61-2040Vpgbhgp for Treatment [id number]#1.00[facility] Community HospitalDischarge Instructionson 63-50-2986Slpwpqxan Instructions ALETA CASTRO :2000 Visit Date:04/23/2023 Inpatient [...] been scheduled. Call for any problems. Where: [address] [place] [address] [employer] (1) Medications What How Much When Instructions Next Dose New acetaminophen-oxycodone (Percocet 5 mg-325 mg oral tablet) 1 Tablets By Mouth As Directed 1-2 po Q4-6h prn pain Dx: S83.512D Duration: 7 days Pickup at [facility]/pharmacy #2345 New aspirin (Ecotrin 325 mg Tab-EC) 1 Tablets By Mouth Every day Pickup at [facility]/pharmacy #2345 Pharmacy Information [facility]/pharmacy #2345: [address], [place] [phone] Allergies Banana (Throat tightness, Hives, Vomiting) Latex (Hives, Swelling) azithromycin (Hives) midodrine (Numbness) Education Materials [place], [place] [facility] DISCHARGE INSTRUCTIONS: ANTERIOR CRUCIATE [...] any concerns. Myron Marroquin, DO [facility] [address] [place] [address] Reviewed: 06-23 Revised: 03/29 Common Emergency [...] please share your experie (more content not included)...[facility] HospitalComment on above:Result Comment: Electronically Signed By: Marcelo MCQUEEN, Shyla Acevedo\.br\Date and Time Signed: 04/23/23 10:58 ESTH&P Updateon 04-23-2023H&P [id number]#1.00TIFF [facility] HospitalMain OR PACU I Recordon 81-76-7710Meaq OR PACU I RecordPACU Phase I Document Type FT Summary Primary Physician: Myron Marroquin DO Finalized Date/Time: 04/23/23 12:22:33 Pt. Name: ALETA CASTRO/Sex: 2000 Female Med Rec #: [id number] Physician: Myron Marroquin DO Financial #: [id number] Pt. Type: A Room/Bed: [place] [address] Admit/Disch: 04/23/23 06:25:15 - Institution: Case Times [...] Signatures Signed By: Valencia Jimenez RN 04/23/23 12:22[facility] HospitalMain OR Preoperative Recordon 34-09-2259Vwvp OR Preoperative RecordPreOp Document Type FT Summary Primary Physician: Myron Marroquin DO Finalized Date/Time: 04/23/23 08:50:41 Pt. Name: ALETA CASTRO/Sex: 2000 Female Med Rec #: [id number] Physician: Myron Marroquin DO Financial #: [id number] Pt. Type: A Room/Bed: [facility]/ [...] Signatures Signed By: Lyle Comer RN 04/23/23 08:50NoCorey HospitalMonitor Record on 81-73-1446Nqqtamx [id number]#1.00TIFF [facility] HospitalOperative Reporton 34-81-5563Tfrinqzar Report Patient: ALETA CASTRO Age: 22 years [...] Using maximal sterile barrier technique per current [facility] guidelines including hand hygeine, Guidance (Ultrasound [...] patient tolerated the procedure as expected.Normal [facility] HospitalComment on above:Result Comment: Electronically Signed By: [facility] (), Cyrus Zepeda.br\Date and Time Signed: 04/23/23 07:56 ESTPatient Education - Texton 62-65-8898Eovmtal Education - Text [place], [place] [facility] DISCHARGE INSTRUCTIONS: ANTERIOR CRUCIATE [...] any concerns. Myron Marroquin DO [facility] [address] [place] [address] Reviewed: 06-23 Revised: 03/29[facility] HospitalProeastern missouri state hospital Note-Physicianon 57-21-5434Aawmpslm Note-PhysicianPatient: ALETA CASTRO Age: 22 years Sex: [...] tab(s), Refills(s) 0, Pharmacy: [facility]/pharmacy #2345, 165, cm, 04/04/23 6:11:00 EST, Height/Length Dosing, 78, kg, 04/04/23 6:11:00 EST, Weight Dosing Percocet 5 mg-325 mg oral tablet: 1 tab(s), Oral, As Directed, 40 tab(s), Refill(s) 0, 1-2 po Q4-6hprn pain Dx: S83.512D Duration: 7 days, [facility]/pharmacy #2345, 165, cm, 04/04/23 6:11:00 EST, Height/Length Dosing, 78, kg, 04/04/23 6:11:00 EST, Weight Dosing, Home Medications (2) Active Ecotrin 325 mg Tab-EC 325 mg = 1 tab(s), Oral, Daily Percocet 5 mg-325 mg oral tablet 1 tab(s), Oral, As Directed Problem list: All Problems H/O: hypothyroidism / SNOMED CT 355927630 / Confirmed POTS (postural orthostatic tachycardia syndrome) / SNOMED CT 9297179304 / Confirmed Physical Examination Vital Signs 04/23/2023 [...] Blood Pressure 1 (more content not included)... [facility] HospitalComment on above:Result Comment: Electronically Signed By: [facility] Cyrus LEACH\.br\Date and Time Signed: 04/23/23 11:06 ESTProgress Note-PhysicianPatient: ALETA CASTRO Age: 22 years Sex: Female : 2000 Associated Diagnoses: None Author: Myron Marroquin DO Postoperative Information Procedure: L knee scope, ACL recon Preoperative Diagnosis: L ACL tear. Postoperative Diagnosis: same. Performed by: daniel. Merchandising Specialist: Roby Camacho. Specimens Removed: none. Prosthesis: Arthrex. . Estimated Blood Loss: 10 ml. Complications: None. Anesthesia type: General, block.[facility] HospitalComment on above:Result Comment: Electronically Signed By: [...] tab(s), Refills(s) 0, Pharmacy: [facility]/pharmacy #2345, 165, cm, 04/04/23 6:11:00 EST, Height/Length Dosing, 78, kg, 04/04/23 6:11:00 EST, Weight Dosing Percocet 5 mg-325 mg oral tablet: 1 tab(s), Oral, As Directed, 40 tab(s), Refill(s) 0, 1-2 po Q4-6hprn pain Dx: S83.512D Duration: 7 days, [facility]/pharmacy #2345, 165, cm, 04/04/23 6:11:00 EST, [...] All Problems H/O: hypothyroidism / SNOMED CT 778741091 / Confirmed POTS (postural orthostatic tachycardia syndrome) / SNOMED CT 7602836990 / Confirmed, Active Problems (2) H/O: hypothyroidism POTS (postural orthostatic tachycardia syndrome) Histories Past Medical History: No active or resolved past medical history items have been selected or recorded. Family History: No family history items have been selected or recorded. Procedure history: Laparoscopic left ovarian R/o ([id number]). Ovarian cyst removal ([id number]). Social History Social & Psychosocial Habits Alcohol [...] U beta hCG Ql Negative . Plan [place] [employer] Anesthesiologists (ASA) physical status classification: Class II. Anesthetic Preoperative Plan: Anesthesia General. Regional Adductor Canal Block Left.[facility] HospitalComment on above:Result Comment: Electronically Signed By: Urbano MENDEZ)Cyrus\.br\Date and Time Signed: 04/23/23 07:41 ESTU BetaHcg Qualon 15-07-0130KQZ.beta subunit (U) [Moles/Vol]NegativeNoCorey HospitalComment on above:Performed By: #### [id number] ####[facility] [address] [place], [place] [address]Vujvcwk for Procedure/Surgery on 74-65-7992Yxbgzhb for Procedure/Surgery [id number]#1.00TIFFToledo Hospital w/ Auto Diffon 12-51-3801Ffzkohmh Absolute0.0 E9/LNormal0.0-0.2FCleveland Clinic Mercy HospitalComment on above:Performed By: #### [id number] ####[facility] [address] [place], [place] [address]Xlfujsmpk/100 WBC (Bld)0.4 %Normal0.0-2.0[facility] HospitalComment on above:Performed By: #### [id number] ####[facility] [address] [place], [place] [address]Ocq Absolute0.1 E9/LNormal0.0-0.5FCleveland Clinic Mercy HospitalComment on above:Performed By: #### [id number] ####[place] [address] [address]Vwwsbejosvr/100 WBC (Bld)1.0 %Normal0.0-8.0[facility] HospitalComment on above:Performed By: #### [id number] ####[place] [address] [address]Ubwjqfgyibu distribution width (RBC) [Ratio]12.6 %Mbsodb22.9-14.2FCleveland Clinic Mercy Hospital Comment on above:Performed By: #### [id number] ####[address] [address]Ojanbosivk (Bld) [Volume fraction] 39.0 %Ugpzth04.0-46.0[facility] Memorial HospitalComment on above:Performed By: #### [id number] ####[address] [address]Khktkexqym (Bld) [Mass/Vol]13.1 g/vRGixmpc57.0-16.0[facility] Memorial HospitalComment on above:Performed By: #### [id number] ####[address] [address]Frldr Absolute1.4 E9/LNormal 1.0-4.0[facility] Memorial HospitalComment on above:Performed By: #### [id number] ####[address] [address] Lymphocytes/100 WBC (Bld)22.2 %Zphayy62.0-50.0[facility] HospitalComment on above:Performed By: #### [id number] ####[place] [address] [address]QZG (RBC) [Entitic mass]30.6 pgNormal 27.0-34.0[facility] Memorial HospitalComment on above:Performed By: #### [id number] ####[place] [address] [address]FDVO (RBC) [Mass/Vol]33.7 g/tCDeazol00.4-36.0[facility] HospitalComment on above:Performed By: #### [id number] ####[place] [address] [address]ONM (RBC) [Entitic vol]91.0 wIQkumto70.0-100.0 [facility] HospitalComment on above:Performed By: #### [id number] ####[place] [address] [address]Ygoq Absolute0.4 E9/LNormal0.2-1.0[facility] Memorial HospitalComment on above: Performed By: #### [id number] ####[address] [address]Sndjfpnaj/100 WBC (Bld)5.6 %Normal4.0-14.0[facility] Memorial HospitalComment on above:Performed By: #### [id number] ####[address] [address]Ipdnig Absolute4.6 E9/LNormal2.0-7.5FCleveland Clinic Mercy HospitalComment on above:Performed By: #### [id number] ####[address] [address]Oqskbd Auto70.8 %Lhijaj69.0-75.0[facility] HospitalComment on above:Performed By: #### [id number] ####[address] [address]Pkhbpcas758.0 E9/XEctqqw368.0-500.0[facility] HospitalComment on above:Performed By: #### [id number] ####[address] [address]Gabokfjl mean volume (Bld) [Entitic vol]7.7 fLNormal6.4-10.8[facility] Memorial HospitalComment on above:Performed By: #### [id number] ####[place] [address], [place] [address]WHH6.3 E12/LNormal4.3-5.9[facility] Memorial HospitalComment on above:Performed By: #### [id number] ####[facility] [address] [place], [place] [address]ONT6.5 E9/LNormal4.0-11.0 [facility] HospitalComment on above:Performed By: #### [id number] ####[place] [address] [place] [address] Consent for Treatmenton 52-63-4130Aesjcve for Treatment [id number]#1.00TIFFNormalOhiohealth Grady Memorial HospitalHEMATOLOGYOrdered By: SYSTEM SYSTEM on 79-80-9694Qbqrxyvn Absolute0.0 E9/L Normal0.0 - 0.2 E9/LRemisol HemeBasophils/100 WBC (Bld)0.4 %Normal0.0 - 2.0 % Remisol HemeEos Absolute0.1 E9/LNormal0.0 - 0.5 E9/LRemisol HemeEosinophils/100 WBC (Bld)1.0 %Normal0.0 - 8.0 %Remisol HemeErythrocyte distribution width (RBC) [Ratio]12.6 %Czykfw47.9 - 14.2 %Remisol HemeHematocrit (Bld) [Volume fraction] 39.0 %Rolyhn80.0 - 46.0 %Remisol HemeHemoglobin (Bld) [Mass/Vol]13.1 g/dLNormal 12.0 - 16.0 gm/dLRemisol HemeLymph Absolute1.4 E9/LNormal1.0 - 4.0 E9/LRemisol HemeLymphocytes/100 WBC (Bld)22.2 %Javqcw11.0 - 50.0 %Remisol HemeMCH (RBC) [Entitic mass]30.6 hfZslojk52.0 - 34.0 pgRemisol HemeMCHC (RBC) [Mass/Vol]33.7 g/tXEphkhk96.4 - 36.0 gm/dLRemisol HemeMCV (RBC) [Entitic vol]91.0 iSPdgupt60.0 - 100.0 fLRemisol HemeMono Absolute0.4 E9/LNormal0.2 - 1.0 E9/LRemisol Heme Monocytes/100 WBC (Bld)5.6 %Normal4.0 - 14.0 %Remisol HemeNeutro Absolute4.6 E9/LNormal2.0 - 7.5 E9/LRemisol HemeNeutro Auto70.8 %Gsopdj40.0 - 75.0 %Remisol FizzChzlewzc670.0 E9/AAvmjbc667.0 - 500.0 E9/LRemisol HemePlatelet mean volume (Bld) [Entitic vol]7.7 fLNormal6.4 - 10.8 fLRemisol HemeRBC4.3 E12/LNormal4.3 - 5.9 E12/LRemisol HemeWBC6.5 E9/LNormal4.0 - 11.0 E9/LRemisol HemeCOVID/FLU/RSV RT-PCRon 70-03-9032JGEA-CoV-2 (COVID-19) RNA QUEENIE+probe Ql (Unsp spec)Negative [facility] [employer] Other COVID/FLU/RSV RT-PCRNegativeLexington Publimind Other quick Strepon 04-01-2023S. pyogenes Org specific cx Ql (Throat)NegativeLexington [employer]im[employer] Other quick [employer] Other US Gallbladderon 33-41-5066TQ GallbladderClinical History: Right upper quadrant pain. Diarrhea. [...] and signed by Cornelius Hernandez on 07/23/2022 1043NormalNortbanner baywood medical centern Select Medical Specialty Hospital - CantonOG PANEL 2: to 29on 05-09-2022..NormalThe [facility] on above:Performed By: #### [id number] #### [facility] [address] [place] [address] Dr. Yovanny Kelly Gdln ACOG Csccesg42-42ZxgqeqQlqCrystal Clinic Orthopedic Center on above:Performed By: #### [id number] #### [facility] [address] [address] [address] Yovanny VillegasDIAGNOSIS:CommentMadison Health on above: Result Comment: NEGATIVE FOR INTRAEPITHELIAL LESION OR MALIGNANCY.Performed By: #### [id number] #### [facility] [address] [place] [address] Dr. Yovanny VillegasMethodology:CommentMadison Health on above: Result Comment: This liquid based ThinPrep(R) pap test was screened with the use of an image guided system.Performed By: #### [id number] #### [facility] [address] [place] [address] Dr. Yovanny VillegasNote:CommentMadison Health on above:Result Comment: The Pap smear is a screening test designed to aid in the detection of premalignant and malignant conditions of the uterine cervix. It is not a diagnostic procedure and should not be used as the sole means of detecting cervical cancer. Both false-positive and false-negative reports do occur. .Performed By: #### [id number] #### [facility] [address] [address] [address] Yovanny VillegasPerformed by:CommentMadison Health on above: Result Comment: Deedee Navarrete, Academic Counselor (ASCP)Performed By: #### [id number] #### [facility] [address] [place] [address] Dr. Yovanny VillegasReflex Criteria:CommentNormalThe Alba HospitalComment on above:Result Comment: The HPV DNA reflex criteria were not met with this specimen result therefore, no HPV testing was performed. .Performed By: #### [id number] #### [facility] [address] [place] [address] Dr. Yovanny Anthony adequacy:CommentNoGerman HospitalComment on above:Result Comment: Satisfactory for evaluation. Endocervical and/or squamous metaplastic cells (endocervical component) are present.Performed By: #### [id number] #### [facility] [address] [place] [address] Dr. Yovanny VillegasCHLAMYDIA/GONOCOCCUS QUEENIE (SWAB/URINE/PAPon 99-93-3476Luzebtxne trachomatis, NAANegativeNormalNegativeThe Jewish HospitalComment on above: Performed By: #### CT/NGNA #### [facility] [address] [place] [address] Dr. Yovanny VillegasNeisseria gonorrhoeae, NAANegativeNormalNegativeThe Jewish HospitalComment on above:Performed By: #### CT/NGNA #### [facility] [address] [place] [address] Dr. Yovanny VillegasVAGINITIS/VAGINOSIS DNA PROBEon 75-85-9126Qnzlpbx speciesNegative NormalNegativeThe Jewish HospitalComment on above:Performed By: #### VAGINT #### [facility] [address] [place] [address] Dr. Yovanny VillegasGardnerella vaginalisNegativeNormalNegativeThe [facility] Hospital Comment on above:Performed By: #### VAGINT #### [facility] [address] [place] [address] Dr. Yovanny VillegasTrichomonas vaginalisNegativermalNegativeThe [facility] Hospital Comment on above:Performed By: #### VAGINT #### [facility] [address] [place] [address] Dr. Yovanny VillegasXR KNEE LEFT (3 VIEWS)on 20-48-4902AB KNEE LEFT (3 VIEWS) EXAMINATION: THREE XRAY [...] Signed by: Deshaun Aguilar MD 05/24/21 Final resultNormalAvita Health System Ontario HospitalNo fracture or dislocation. [facility] CONSOLIDATEDEXAMINATION: THREE XRAY VIEWS OF THE LEFT KNEE 05/24/2021 8:48 pm COMPARISON: None. HISTORY: ORDERING SYSTEM PROVIDED HISTORY: pain eval occult bony injury TECHNOLOGIST PROVIDED HISTORY: pain eval occult bony injury FINDINGS: No fracture, dislocation, or focal osseous lesion is noted. No significant soft tissue abnormality seen. [facility] Deshaun Bejarano MD - 05/24/2021 EXAMINATION: THREE XRAY VIEWS OF THE LEFT KNEE 05/24/2021 8:48 pm COMPARISON: None. HISTORY: ORDERING SYSTEM PROVIDED HISTORY: pain eval occult bony injury TECHNOLOGIST PROVIDED HISTORY: pain eval occult bony injury FINDINGS: No fracture, dislocation, or focal osseous lesion is noted. No significant soft tissue abnormality seen. IMPRESSION: No fracture or dislocation. MYR Phone: radiology Study observation (narrative)MYR Phone: XR KNEE LEFT (3 VIEWS)Ordered By: Deshaun Aguilar on 86-32-8782Nbfxi Health Work Phone: COVID Quick Testingon 94-47-8114GitdbsLsrzhjikBdiqg Publim[employer] Other Quick Strepon 05-01-2021. pyogenes Org specific cx Ql (Throat)PositiveLexington Publim[employer] Other Quick StrepNowestern missouri medical center Publ[employer] Other COVID Quick Testingon 97-29-3440NullnoXxlgylnsIbtmv Publ[employer] Other Quhnn Fluon 92-42-5761IEYEG Ab CF (S) [Titer]Negative North Publ[employer] Other FLUBV Ab CF (S) [Titer]NegativeNoSouthwood Psychiatric Hospital [employer] Other XR SACRUM COCCYX (MIN 2 VIEWS)on 39-99-5330KQ SACRUM COCCYX (MIN 2 VIEWS)EXAMINATION: THREE XRAY VIEWS OF THE SACRUM/COCCYX 12/14/2020 3:10 am COMPARISON: None. HISTORY: ORDERING SYSTEM PROVIDED HISTORY: fall at work - hit sgzce1qr TECHNOLOGIST PROVIDED HISTORY: fall at work - hit bwpsr3tc FINDINGS: The sacroiliac joints are normally aligned. The visualized portions the pelvis are. There is no fracture of the sacrum or coccyx evident. IMPRESSION: No acute osseous abnormality of the sacrum or coccyx evident. Interpreted by: Loc Oswald MD Signed by: Loc Oswald MD 12/14/20 Final resultNormalMerGreenwich HospitalXR SACRUM COCCYX (MIN 2 VIEWS)Ordered By: David Dominguez on 61-12-2551Mj acute osseous abnormality of the sacrum or coccyx evident.[employer] Work Phone: eXAMINATION: THREE XRAY VIEWS OF THE SACRUM/COCCYX 12/14/2020 3:10 am COMPARISON: None. HISTORY: ORDERING SYSTEM PROVIDED HISTORY: fall at work - hit yunyd4yj TECHNOLOGIST PROVIDED HISTORY: fall at work - hit mzfhl4zj FINDINGS: The sacroiliac joints are normally aligned. The visualized portions the pelvis are. There is no fracture of the sacrum or coccyx evident. [employer] Work Phone: e, [facility] Incoming Radiant Results From [employer]/Net 263 - 12/14/2020 3:24 AM EDT EXAMINATION: THREE XRAY VIEWS OF THE SACRUM/COCCYX 12/14/2020 3:10 am COMPARISON: None. HISTORY: ORDERING SYSTEM PROVIDED HISTORY: fall at work - hit qajhm3hc TECHNOLOGIST PROVIDED HISTORY: fall at work - hit mfiop6rx FINDINGS: The sacroiliac joints are normally aligned. The visualized portions the pelvis are. There is no fracture of the sacrum or coccyx evident. IMPRESSION: No acute osseous abnormality of the sacrum or coccyx evident. [employer] Work Phone: [facility] HospitalPAYFORMANCE HOLDING Work Phone: ct HEAD WO CONTRASTon 44-91-6751OX HEAD WO CONTRAST EXAMINATION: CT OF THE [...] Signed by: Maira Cruz MD 09/19/20 Final resultNormalHolzer Health System Head WO ContrastOrdered By: Luis Carlos Fragoso on 96-73-8203Sceobftggxdx noncontrast CT examination of the brain.MYR Phone: eXAMINATION: CT OF THE HEAD WITHOUT [...] abnormality of the visualized skull or soft tissues.MYR Phone: edi, [facility] Incoming Radiant Results From [employer]/Net 263 - 09/19/2020 4:42 PM EDT EXAMINATION: CT [...] Unremarkable noncontrast CT examination of the brain. MYR Phone: [facility] Phone: coding Summaryon 64-40-4516Qpzbsf SummaryCODING DATE: 10/27/2019 [facility] STATUS: Home PAYOR: [facility] ADMIT DX: REASON FOR VISIT DX: [...] By: Ashley Pablo Date Saved: 10/27/2019 03:10 [facility]2019 Novel Coronavirus (CoVID-19), QUEENIE LCon 27-34-3962ZTCX-CoV-2, QUEENIE (COVID-19) LCNot DetectedNot Samaritan North Health CenterComment on above:Order Comment: [id number] Comment: This test was developed and its performance characteristics determined by [employer] [facility]. This test has not been FDA cleared [...] detected) result in this assay. Performed At: [facility] [address] [employer] [facility], [place] [id number] Ruba Washburn MD Ph:[phone] By: #### [id number] #### [facility] (DEFAULT) [address] [place] [address]Kspkywx Formson 21-38-1842Kljzdko Forms [id number]#1.00OTGTMercy Health St. Anne Hospital on 33-54-5245UTJWGafwic TextToll Free: [phone] [facility] - Uxkuegi[address] [place] [address]Vkvmg: [phone]: [place] [facility] [address] [place], [place] [address]Cjesm: [phone]: [facility] [place], [place] [address]Saenj: [phone]: Steve Pablo M.D., Ronaldo Marquez M.D.David Becerril M.D.Papito Sood D.O..Myriam Chaudhari M.D.Deandre Montoya M.D. Matthew Huff M.D.Date: July 15, 2017Re: Aleta Elliott WHOM IT MAY CONCERN:She was seen in our office today.Sincerely,Katelin Cardona PSR(signed electronically to expedite mailing)[facility] TownshipCNOVSPon [phone] (SP) Office ([place]MAC[place]) --------ALETA GARAY ([id number]) 89 FDate Time Provider Department07/15/17 3:15 PM [...] nourishedNeuro: Gait normal.Collected: 05/15/17 104 3Resulting lab: [facility] MAIN LABORATORYValue: (NOTE)Comment: Performing Pathologist: Jo-Ann [...] list. no changes .Referring Provider: DAVID BECERRIL [[id number]]Allergies As of Date: 07/15/2017(No Known Allergies)Date Reviewed: [...] .Encounter Status:Closed by DAVID BECERRIL MD on 07/17/17[facility] [id number] ID: [id number]: David Escaleraervice: (none)Author Type: PhysicianType: Progress NotesFiled: [...] well nourishedNeuro: Gait normal.Collected: 05/15/17 1043Resulting lab: [facility] MAIN LABORATORYValue: (NOTE)Comment: Performing Pathologist: Jo-Ann [...] issues certainly could consider further testingAlfred Kavon BaroneUniversity Hospitals Geneva Medical CenterPlatelet Func Scrnon 45-27-3934SOD/ADP Lipyoyewu02 CT (sec) Normal<118[facility] on above:Result Comment: Results are reported as Closure Time (CT) in seconds.Performed By: #### PLTSCP ####[place] [address], [place] [phone]/EPI Ixvimpfcw300 CT (sec)Normal<199CleTr[facility] on above:Result Comment: Results are reported as Closure Time (CT) in seconds. Performed By: #### PLTSCP ####[facility] [address] AveCEs[place], [place] [phone] Func Scr Interp(NOTE)NormalLicking Memorial Hospital on above:Result Comment: Performing Pathologist: [...] a bleeding disorder. Performed By: #### PLTSCP ####[address] [place], [place] [phone] CBCDIF (for [facility] use only)on 39-96-7706Nzr Baso<0.03Normal<0.11C[facility] on above: Performed By: #### EVANDF ####[place] [address], [place] [phone] Mono0.53 k/uLNormal<0.87[facility] on above:Performed By: #### EVANDF ####[place] [address], [place] [phone] Neut2.59 k/uL Normal1.45-7.50[facility] on above:Performed By: #### EVANDF ####[address], [place] [phone]/100 WBC Auto (Bld)0.4 %NormalLicking Memorial Hospital on above:Performed By: #### EVANDF ####[address], [place] [phone] DiffNormal [facility] on above:Performed By: #### EVANDF ####[address] [phone] 10*3/uLNormal<0.46[facility] on above:Performed By: #### EVANDF ####[place] [address], [place] [phone]/100 leukocytes1.5 %Normal [facility] on above:Performed By: #### EVANDF ####[address], [place] [phone] distribution width Auto Ratio (RBC)12.2 %Jmtcbh83.5-15.0 [facility] on above:Performed By: #### RACHEL ####[address], [place] [phone] (RBC)4.15 10*6/uLNormal3.90-5.20[facility] Comment on above:Performed By: #### RCBCDF ####[address], [place] [phone] (RBC)0.0 /100 WBCNormal 0[facility] Centerment on above:Performed By: #### RCBCDF ####[address], [place] [phone] (RBC)10*6/uLNormal<0.01[facility] on above:Performed By: #### RCBCDF ####[address] [phone] (HCT)39.4 %Nxrzoz30.0-46.0 [facility] HospitalComment on above:Performed By: #### RCBCDF ####[address] [phone] mass conc (Bld)12.8 g/sMXdhxgm07.5-15.5C[facility] on above:Performed By: #### RCBCDF ####[address] [phone] 10*3/uLNormal1.00-4.00[facility] on above:Performed By: #### RCBCDF ####[address] [phone]/100 doupknwrsn30.9 %NormalLicking Memorial Hospital on above:Performed By: #### RCBCDF ####[address] [phone] pGNormal 26.0-34.0[facility] on above:Performed By: #### CHONBCDF ####[place] [phone] mass conc (RBC)32.5 g/bPNbxnka45.5-36.0[facility] Comment on above:Performed By: #### EVANDF ####[place] [phone] aWXlelpr40.0-100.0[facility] on above:Performed By: #### EVANDF ####[place] [phone]/100 jjhvasccex67.6 %NormalLicking Memorial Hospital on above:Performed By: #### EVANDF ####[place] [phone]/100 WBC Auto (Bld)56.6 %NormalLicking Memorial Hospital on above:Performed By: #### CHONBCDF ####[place] [phone] mean volume (PMV)10.2 fLNormal9.0-12.7C[facility] on above:Performed By: #### CHONBCDF ####[place] [phone] 10*3/rAAedhrt606-665XpqnahqddOhiohealth Van Wert Hospital Comment on above:Performed By: #### EVANDF ####[place] [phone] (Leukocytes)4.58 10*3/uLNormal 3.70-11.00[facility] on above:Performed By: #### EVANDF ####[address] [place], [place] [phone] 55-76-3439YRXMRknfmj TextToll Free: [email or web address]/cancer [facility] Jrmuqzrd[address] [place], [place] [address]Acrth: [phone]: [facility] [address] [place], [place] [address]Cjmqp: [phone]: [facility] [address] [place], [place] [address]Hipzt: [phone]: Steve Pablo M.D., Jonna Castro M.D.Papito Sood D.O..Carin Hoover M.D. FACROSaju A. Rajan, M.D.Date: April 29, 2017Re: Aleta RuizvipulSKYLER WHOM IT MAY CONCERN:She was seen in our office today.Sincerely,Karly Pizarro Psr(signed electronically to expedite mailing)[facility] TownshipCNOVSPon [phone] (SP) Office (HEMACL) --------BEVVIPULSUMMER ([id number]) 89 FDate Time Provider Department04/29/17 2:30 PM [...] patientand her mother at length. Would check NZL578 at this time, further testingbased on results.1. [...] (HCC) [D69.1]Order(s):PLATELET FUNCTION SCREEN [SQPLTSCP] Order #: [id number] FUTURE CBC + DIFF (FOR REMOTE [facility] USE) [SQRCBCDF] Order #: [id number] FUTUREDisposition: Return in about 6 weeks (around [...] Status:Closed by DAVID BECERRIL MD on 04/29/17Normal [facility] HospitalPROGRESSon 91-70-2737IZWAILZAVUQ ID: [id number]: David Escaleraervice: (none)Author Type: PhysicianType: Progress NotesFiled: [...] and her mother at length. Would check RFM464 at this time, furthertesting based on results.1. 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, choice of management likely to be influenced by history ofPOTSAlfred Chery Barone [facility] Vital Signs Date TimeVital SignValuePerforming FjnmmulioYqqbcqka81-72-6918 14:02-0500Body mass index (BMI) [Ratio]30 kg/m2Pretty ARELLANO Work Phone: [facility] HospitalCatuxippeo09-43-2635 14:02-0500Body uorclf29.29 kgPretty ARELLANO Work Phone: [facility] HospitalHmwiynthlq89-61-9244 14:02-0500Diastolic blood mm[Hg]Pretty ARELLANO Work Phone: [facility] HospitalLtakbupgkb70-89-6583 14:02-0500Systolic blood nuxejfgi48 mm[Hg]Pretty ARELLANO Work Phone: [phone] [place], [place] [address]Qykvcfmspo56-37-1578 13:04-0400Body mass index (BMI) [Ratio]29.59 kg/x2Onmjk William DO Work Phone: [phone] [place], [place] [address]Lrhgqwyits04-68-8086 13:04-0400Body npupnj29.2 kg Doc William DO Work Phone: [phone])[facility] [place], [place] [address]Jswyjxoocu44-73-1742 13:04-0400Diastolic blood ztnmndyg57 mm[Hg]Doc William DO Work Phone: [phone])[facility] [place], [place] [address]Utydanvqeo71-04-3554 13:04-0400Systolic blood ifnkftru209 mm[Hg]Doc William DO Work Phone: 1(294)[facility] [place], [place] [address]Wcdocmzqtk06-81-6747 13:57-0400Body mass index (BMI) [Ratio]29.42 kg/t7QpcjzpdmLuna Steen 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 Work Phone: [phone])[address] [place], [place] 3595410-08-2025 13:57-0400Body icnzri81.75 kgLuna Steen 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 Work Phone: 1(474)[facility] [place], [place] [address]Zowhmvwtdc41-55-5201 13:57-0400Diastolic blood mm[Hg]Luna Steen 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 Work Phone: 1(327)[facility] [place], [place] [address]Tsflcblbal99-66-5582 13:57-0400Systolic blood hprmavhk499 mm[Hg]Luna Steen 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 Work Phone: [phone])[address] [place], [place] 3595409-24-2025 14:07-0400Body mass index (BMI) [Ratio]28.84 kg/o3Xsiqx William DO Work Phone: 1(443)[facility] [place], [place] [address]Eiskwhmpqe92-48-8414 14:07-0400Body qvxouq49.2 kg Doc William DO Work Phone: 1(147)[facility] [place], [place] [address]Wwbhfimhub79-77-5781 14:07-0400Diastolic blood mm[Hg]Doc William DO Work Phone: 1(190)[facility] [place], [place] [address]Bbelphxwil53-17-2172 14:07-0400Systolic blood lryignmn486 mm[Hg]Doc William DO Work Phone: [phone] [place], [place] [address]Qnezcpeglm96-87-9334 14:04-0400Body mass index (BMI) [Ratio]29.95 kg/j5Vegpwtnq Enio 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 Work Phone: [phone]-[facility] HospitalTibxxojhbe03-68-7553 14:04-0400Body .15 kgLuna Enio 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 Work Phone: 1(732)506-[address] [place], [place] [address]Lzzzfvjgio26-75-7249 14:04-0400Diastolic blood qhglywqn71 mm[Hg]Luna Eino 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 Work Phone: 1(595)389-[address] [place], [place] [address]Umdbfqulhj84-51-0116 14:04-0400Systolic blood cuhpkuaa037 mm[Hg]Luna Enio 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 Work Phone: 1(097)319-[address] [place], [place] [address]Bvvafufqhs60-52-3541 14:39-0400Body mass index (BMI) [Ratio]28.49 kg/m2Pretty Chaidez PA Work Phone: 1(492)529-[address] [place], [place] [address]Dgqogfthlv06-77-8871 14:39-0400Body .3 kg Pretty Chaidez PA Work Phone: 1(087)466-[address] [place], [place] [address]Qacxbhfgsi15-52-7780 14:39-0400Diastolic blood mwwyrwaa98 mm[Hg]Pretty Chaidez PA Work Phone: [phone] [place], [place] [address]Mdgxnltvaj43-54-5750 14:39-0400Systolic blood nnnkadiz910 mm[Hg]Pretty Chaidez PA Work Phone: 1(314)386-[address] [place], [place] [address]Wmcqukvfpz46-60-9730 15:34-0400Body mass index (BMI) [Ratio]28.29 kg/c5Yfbil William DO Work Phone: 1(885)465-[address] [place], [place] [address]Renizpasvw61-86-7671 15:34-0400Body systyg31.75 kgCorey William DO Work Phone: [phone]-[facility] HospitalLhalxxysvj73-05-1911 15:34-0400Diastolic blood lzexoypw29 mm[Hg]Doc William DO Work Phone: 1(633)483-[address] [place] [address]-16-2025 15:34-0400Systolic blood squskgkq104 mm[Hg]Doc William DO Work Phone: [facility] HospitalSgjzragavu18-67-5095 14:27-0400Body mass index (BMI) [Ratio]30.21 kg/e3Nsxfg William DO Work Phone: [facility] HospitalDroarqrypy04-86-1449 14:27-0400Body cjkyjr00.83 kgCorey William DO Work Phone: 1([phone] [place], [place] [address]Lndztkoyta46-90-1032 14:27-0400Diastolic blood qgusaiwr53 mm[Hg]Doc William DO Work Phone: [facility] HospitalWgugvbhtsm57-37-0251 14:27-0400Systolic blood rnxbftqi238 mm[Hg]Doc William DO Work Phone: [facility] HospitalTtnjnmgkri36-51-4218 15:41-0500Body ckedyf697.6 cmDavid Pocos DO Work Phone: [facility] HospitalTnrgczibpl52-95-6376 15:41-0500Body mass index (BMI) [Ratio]30.21 kg/m9Lamxo Pocos DO Work Phone: [facility] HospitalTimpguyymm85-07-2565 15:41-0500Body .83 kgDavid Pocos DO Work Phone: [facility] HospitalQprsjewhjh05-97-0969 15:26-0500Body xedaof960.6 cmEtyshawn Payne MD Work Phone: [facility] HospitalCprvufbnmy71-86-8605 15:26-0500Body mass index (BMI) [Ratio]30.21 kg/i1GeqgqoRosalie Payne MD Work Phone: [facility] HospitalWtqinxzmlw36-54-0617 15:26-0500Body .83 kgRosalie Payne MD Work Phone: [facility] HospitalXapnmeigzl54-19-9812 15:26-0500Heart rate88 /min Rosalie Payne MD Work Phone: [facility] HospitalDmkuobyxeg36-53-4623 15:26-9924TwJ8% (BldA) [Mass fraction]98 %Rosalie Payne MD Work Phone: [facility] HospitalCxwyqgecbp40-00-9409 08:00-0400Body nrlefk615.6 cmKelvin Schwartz DO Work Phone: [facility] HospitalZcrukjqmxx68-35-8455 08:00-0400Body mass index (BMI) [Ratio]30.9 kg/l9EscufKelvin Schwartz DO Work Phone: [facility] HospitalVrhmiysuzo42-93-5140 08:00-0400Body wrslgo63.65 kgKelvin Schwartz DO Work Phone: [facility] HospitalUxhzuzcuyr81-37-4283 14:25-0400Diastolic blood yiddxfuh49 mm[Hg]MD Rosalie Payne Work Phone: [phone]06-17-2024 14:25-0400 Heart rate80 /minMD Rosalie Payne Work Phone: 1(367)[address] [place], [place] 5352606-17-2024 14:25-0400 Respiratory rate18 /minMD Rosalie Payne Work Phone: 1(643)[address] [place], [place] 5352606-17-2024 14:25-0400 SaO2% (BldA) [Mass fraction]100 %MD Rosalie Payne Work Phone: 1(696)[address] [place], [place] 5352606-17-2024 14:25-0400 Systolic blood przvgomx677 mm[Hg]MD Rosalie Payne Work Phone: 1([phone] [place], [place] 1003906-17-2024 11:31-0400 Body valiii799.1 cmMD Rosalie Payne Work Phone: 1(117)[address] [place], [place] 5352606-17-2024 11:31-0400 Body .4 [degF]MD Rosalie Payne Work Phone: [phone])[address] [place], [place] 5352606-17-2024 11:31-0400 Body jdzyek00.11 kg Rosalie Payne Work Phone: 1(447)[address] [place], [place] 5352605-09-2024 14:21-0400 Body .1 [facility]-09-2024 14:21-0400Body mass index (BMI) [Ratio]28.3 kg/d7VsmmjqzwvTrinity Health System [facility] Campus05-09-2024 14:0400Body ssophf54.11 kgTr[facility] Health [facility]05-09-2024 14:-0400Diastolic blood mm[Hg][facility] 07-25-2023 14:21-0400Heart rate81 /minTr[facility] 07-25-2023 14:-0400Systolic blood zssglcnu544 mm[Hg][facility]01-17-2024 14:55-0500Diastolic blood msccojfl27 mm[Hg]Myron Marroquin [address]01-17-2024 14:55-0500Heart srqa034 /minDavid Daniel [address]01-17-2024 14:55-0500Mean blood gdeaeoim330 mm[Hg]Myron Marroquin [address]01-17-2024 14:55-0500 Systolic blood kdydqkrl620 mm[Hg]Myron Marroquin [address]01-17-2024 14:53-0500Heart rate98 /minDavid Vaniaos [address] [place], [place] 8353001-17-2024 14:53-1189AfD1% (BldA) [Mass fraction]99 %Myron Marroquin [address] [place], [place] 8353001-17-2024 14:53-0500 Diastolic blood mm[Hg]Myron Marroquin [address]01-17-2024 14:53-0500Mean blood mm[Hg]Myron Marroquin [address]01-17-2024 14:53-0500 Systolic blood axlowagn677 mm[Hg]Myron Pocos [facility]01-17-2024 14:52-0500 Respiratory rate16 /minDavid Pocos [facility]01-15-2024 10:45-0500Body oivgtn963.1 cmAmanda Kristine Other [employer] Other 01-15-2024 10:45-0500Body mass index (BMI) [Ratio] 28.29 kg/b9Avrpxo Kristine Other [employer] Other 01-15-2024 10:45-0500Body xcauvtwkygg61.1 [degF]Destinee Kristine Other [employer] Other 01-15-2024 10:45-0500Body hymfth39.11 kgAmanda Kristine Other [facility]bazinga[facility] Other 01-15-2024 10:45-0500Respiratory rate18 /minAmanda Kristine Other [employer] Other 01-15-2024 10:45-0536UwS0% (BldA) [Mass fraction]99 % Destinee Kristine Other [employer] Other 06-06-2022 11:25-0400Body rhijyh713.1 cmPamela Martha Other [employer] Other 06-06-2022 11:25-0400Body mass index (BMI) [Ratio] 27.12 kg/n3Jgaudw Martha Other [employer] Other 06-06-2022 11:25-0400Body buwouhugmnj26.6 [degF]Carlie Thomas [facility] [employer] Other 06-06-2022 11:25-0400Body .94 kgCarlie Thomas Other [facility] [employer] Other 06-06-2022 11:25-0400Respiratory rate18 /minCarlie Thomas Other [facility] [employer] Other 06-06-2022 11:25-6346MpP8% (BldA) [Mass fraction]97 % Carlie Thomas Other [facility] [employer] Other 03-09-2022 20:36-0500Body zflptrersrk61.7 [degF]Artis Yoder DO Work Phone: [facility] HospitalPAYFORMANCE HOLDINGQwkhib13-27-3283 20:36-0500Diastolic blood lwowxsbh40 mm[Hg]Artis Yoder DO Work Phone: [facility] HospitalPAYFORMANCE HOLDINGTavbch54-40-9918 20:36-0500Heart klty763 /min Artis Yoder DO Work Phone: [facility] HospitalPAYFORMANCE HOLDINGGfzgjh00-14-4750 20:36-0500Respiratory rate16 /minArtis Yoder DO Work Phone: [facility] HospitalPAYFORMANCE HOLDINGDeflfu16-48-5565 20:36-0694YxD5% (BldA) [Mass fraction]97 %Artis Herithad DO Work Phone: [facility] HospitalPAYFORMANCE HOLDINGWkuhnr64-03-0710 20:36-0500Systolic blood mm[Hg]Artis Yoder DO Work Phone: [facility] HospitalPAYFORMANCE HOLDINGIkpzjq88-98-3931 13:10-0500Body wmpozg924.1 cm Adriana Evangelista Other [facility] [employer] Other 02-24-2022 13:10-0500Body mass index (BMI) [Ratio] 27.12 kg/z4Zakefakpz Jean Carlos Other [employer] Other 02-24-2022 13:10-0500Body jhmnneyvcrq30.8 [degF] Adriana Garciaault Other [employer] Other 02-24-2022 13:10-0500Body ypsmrw23.94 kgStjen Evangelista Other [employer] Other 02-24-2022 13:10-0500Diastolic blood edvdlkjs55 mm[Hg] Adriana Garciaault Other [employer] Other 02-24-2022 13:10-0500Respiratory rate18 /minSfeliz Garciaault Other [employer] Other 02-24-2022 13:10-9151MaS7% (BldA) [Mass fraction]99 % Adriana Garciaault Other [employer] Other 02-24-2022 13:10-0500Systolic blood mxkgvams330 mm[Hg] Adriana Jean Carlos Other [employer] Other 02-14-2022 11:40-0500Body dyajtc230.1 cmPamelsridhar Thomas Other [employer] Other 02-14-2022 11:40-0500Body mass index (BMI) [Ratio] 26.62 kg/f4Bajcxl Martha Other [employer] Other 02-14-2022 11:40-0500Body nvmpcfosqjw58.6 [degF]Carlie Thomas Other [employer] Other 02-14-2022 11:40-0500Body aimekm67.58 kgCarlie Thomas Other [employer] Other 02-14-2022 11:40-0500Respiratory rate18 /minCarlie Thomas Other [employer] Other 02-14-2022 11:40-0656LxL8% (BldA) [Mass fraction]99 % Carlie Thomas Other [employer] Other 01-21-2022 12:00-0500Body rhopaj226.1 cmCreyse Ashley Other [employer] Other 01-21-2022 12:00-0500Body mass index (BMI) [Ratio] 26.62 kg/s0JrgxleSandeep Ramirez Other [employer] Other 01-21-2022 12:00-0500Body .6 [degF]Sandeep Ramirez Other [employer] Other 01-21-2022 12:00-0500Body gegdvz51.58 kgSandeep Ramirez Other [employer] Other 01-21-2022 12:00-9140MlS5% (BldA) [Mass fraction]98 % Sandeep Ramirez Other [employer] Other 09-28-2021 23:25-0400Diastolic blood pfztanlv45 mm[Hg] David Dominguez MD Work Phone: [facility] [employer] Work Phone: 1(880) 355-665409-28-2021 23:25-0400Systolic blood zbpuytvi142 mm[Hg] David Dominguez MD Work Phone: [phone] [employer] Work Phone: 1(928) 463-315709-28-2021 23:23-0400Body rbgypo166.1 Mira Dominguez MD Work Phone: [facility] [employer] Work Phone: 1([phone])752-621941-86328442-09-8225 23:23-0400Body mass index (BMI) [Ratio] 26.63 kg/s8ThkieddDavid Dominguez MD Work Phone: [phone] Work Phone: 1(426) 483-179609-28-2021 23:23-0400Body dtrpoqxssuf48.29 [degF] David Dominguez MD Work Phone: [facility] [employer] Work Phone: 1(810) 903-528709-28-2021 23:23-0400Body lgovqw50.58 kgDavid Dominguez MD Work Phone: [facility] Work Phone: 1(559) 149-740609-28-2021 23:23-0400Heart rate79 /Sharon Dominguez MD Work Phone: [phone] Work Phone: 1(197) 293-781709-28-2021 23:23-0400Respiratory rate14 /Sharon Dominguez MD Work Phone: [facility] Work Phone: 1(686) 794-260609-28-2021 23:23-3073XqY5% (BldA) [Mass fraction]99 % David Dominguez MD Work Phone: [facility] Work Phone: 1(959) 202-211807-05-2021 15:56-0400Body fvybtuttvhh32.6 [degF][facility] Work Phone: 1(125) 439-191007-05-2021 15:56-0400Diastolic blood kyhxuace83 mm[Hg] [employer] Work Phone: 1(402) 362-426607-05-2021 15:56-0400Heart thhk375 /minPush[employer] Work Phone: 1(160) 237-584807-05-2021 15:56-0400Respiratory rate16 /min[employer] Work Phone: 1(594) 496-664907-05-2021 15:56-1076UeR1% (BldA) [Mass fraction]100 % [employer] Work Phone: 1(960) 644-374807-05-2021 15:56-0400Systolic blood mabhrvfd679 mm[Hg] [employer] Work Phone: Encounters Encounter DateEncounter TypeCare ProviderFacilityStart: 01-23-2025 End: 49-23-8043Ewgvfvylg Result EncounterCorey William DO Work Phone: noms External Department UnsolicitedStart: 01-23-2025 End: 69-79-5455Nwupwgopk Result EncounterCorey William DO Work Phone: noms External Department UnsolicitedStart: 01-20-2025 End: 03-78-2154Qrmntu Herson ARELLANO Work Phone: n[facility]BGYNStart: 01-20-2025 End: 68-40-9351Suwqka Herson ARELLANO Work Phone: NOW[facility] OBGYNStart: 01-20-2025 End: 50-68-0846Qhrzbsgnn Result EncounterCorey William DO Work Phone: noms External Department UnsolicitedStart: 01-20-2025 End: 82-63-3425Ucjsqynn flow Arsenio ARELLANO Work Phone: NOV[facility] OBGYNComment on above:Third trimester ([facility]); 35 weeks gestation of ([facility])Start: 01-20-2025 End: 92-54-2366oqlkemofjwIEB RAMEYNot AvailableStart: 01-11-2025 End: 75-87-0630Rkcyczgeo Result EncounterCorey William DO Work Phone: NOMS External Department UnsolicitedStart: 01-11-2025 End: 18-73-7611Wbmqrzoho Result EncounterCorey William DO Work Phone: NOLP External Department UnsolicitedStart: 01-05-2025 End: 05-98-5377Jygaaa flowsheetCorey William DO Work Phone: NOM[facility]BGYNStart: 01-05-2025 End: 20-10-7327Ibhebq flowsheetCorey William DO Work Phone: [facility] [place] [facility]YNStart: 01-05-2025 End: 48-66-8574Ggbuvwbd flow sheetCorey William DO Work Phone: [facility] [place] OBGYNComment on above:Third trimester ([facility]); 33 weeks gestation of ([facility]Start: 01-05-2025 End: 52-91-8352dabcjpxitnDYPQW FAZIONot AvailableStart: 01-02-2025 End: 41-96-2134Pghuzvpkg Result EncounterGeneric External Data ProviderNOMS External Department UnsolicitedStart: 01-02-2025 End: 09-60-8994Lmkpimnqi Result EncounterGeneric External Data ProviderNOMS External Department UnsolicitedStart: 12-26-2024 End: 57-96-6030Cuaoowyyi Result EncounterGeneric External Data ProviderNOMS External Department UnsolicitedStart: 12-26-2024 End: 61-99-1753Rzbeihyde Result EncounterGeneric External Data ProviderNOMS External Department UnsolicitedStart: 12-23-2024 End: 35-27-3182Fzbnwv Cody Steen NP Work Phone: [facility] [facility]YNStart: 12-23-2024 End: 33-90-8819Akzhnc Cody Steen NP Work Phone: [facility] [place] [facility]YNStart: 12-23-2024 End: 93-60-5859Frgujsjo flow sheetLuna Steen 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 Work Phone: [facility] [facility]BGYNComment on above:Third trimester ([facility] 31 weeks gestation of ([facility])Start: 12-23-2024 End: 30-74-4297boksdhmwpxNXYLNBZY EBERLYNot AvailableStart: 12-09-2024 End: 70-25-1108Xlhabp flowsheetCorey William DO Work Phone: [facility]BGYNStart: 12-09-2024 End: 35-30-7542Ejyaor flowsheetCorey William DO Work Phone: [facility]BGYNStart: 12-09-2024 End: 28-33-3618Csmhhpxm flow sheetCorey William DO Work Phone: [facility] OBGYNComment on above:Third trimester ([facility]); 29 weeks gestation of ([facility]); Yeast infectionStart: 12-09-2024 End: 92-96-7542hbqqkmwyuiHHHCC FAZIONot AvailableStart: 11-27-2024 End: 85-22-7173lklduffklrDLUTRMercy Healthtart: 11-25-2024 End: 77-42-5015Wcrefy Cody Steen STR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 Work Phone: [facility]BGYNStart: 11-25-2024 End: 81-75-3847Dfrbhq flowsRuss Steen STR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 Work Phone: [facility]BGYNStart: 11-25-2024 End: 02-55-4720Xxjzjqlj flow sheetLuna Steen STR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 Work Phone: [facility] OBGYNComment on above:Second trimester ([facility]); 27 weeks gestation of ([facility]); Evan's diseaseStart: 11-25-2024 End: 32-03-1304urmvhvbemeEGQOSNYN EBERLYNot AvailableStart: 11-24-2024 End: 90-34-3424Akhoqdnbf Result EncounterGeneric External Data ProviderNOMS External Department UnsolicitedStart: 11-24-2024 End: 25-75-4606Gpcmjrsro Result EncounterGeneric External Data ProviderNOMS External Department UnsolicitedStart: 11-12-2024 End: 52-55-0754Egdyuzdsb Result EncounterGeneric External Data ProviderNOMS External Department UnsolicitedStart: 11-12-2024 End: 82-57-3678Mudmnjolw Result EncounterGeneric External Data ProviderNOMS External Department UnsolicitedStart: 11-03-2024 End: 06-58-4193Tfpujehar Result EncounterGeneric External Data ProviderNOMS External Department UnsolicitedStart: 11-03-2024 End: 13-25-4483Vkejecinb Result EncounterGeneric External Data ProviderNOMS External Department UnsolicitedStart: 10-28-2024 End: 42-45-7732Slxwzmy encounter procedurePretty ARELLANO Work Phone: [facility] HealthcareStart: 10-28-2024 End: 77-84-5458Ptyuymyh flow Arsenio ARELLANO Work Phone: [facility] OBGYNComment on above:Second trimester ([facility]); 23 weeks gestation of ([facility]); Diabetes mellitus screening; STD exposure; Well woman exam with routine gynecological exam; Heart palpitationsStart: 10-28-2024 End: 98-22-3452bhdzeaoxlbYFT RAMEYNot AvailableStart: 10-28-2024 End: 24-30-4221Jjeikm Herson ARELLANO Work Phone: [facility] OBGYNStart: 10-28-2024 End: 69-52-3064Alyzxl Herson ARELLANO Work Phone: [facility]BGYNStart: 10-28-2024 End: 22-82-7715Urtramkmv Result EncounterGeneric External Data ProviderNOMS External Department UnsolicitedStart: 10-28-2024 End: 99-14-2871Irodwpcj Result EncounterKrselene Enio [employer]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 Work Phone: noms External Department UnsolicitedStart: 10-06-2024 End: 06-57-7437Mxcedomyt Result EncounterCorey William DO Work Phone: noms External Department UnsolicitedStart: 10-06-2024 End: 80-89-5481Afvvfkmvj Result EncounterCorey William DO Work Phone: NOZE External Department UnsolicitedStart: 09-30-2024 End: 88-49-7631Zzfgdipc flow sheetCorey William DO Work Phone: noms BCP OBComment on above:19 weeks gestation of ([facility]); Second trimester ([facility])Start: 09-30-2024 End: 45-42-2320keiwktvcngVLBQT FAZIONot AvailableStart: 09-28-2024 End: 71-42-5058Ffqzqnopn Result EncounterGeneric External Data ProviderNOMS External Department UnsolicitedStart: 09-28-2024 End: 67-08-9629Rdrbrmmxe Result EncounterGeneric External Data ProviderNOMS External Department UnsolicitedStart: 09-02-2024 End: 58-66-5841Ozdbrltw flow Arsenio ARELLANO Work Phone: noms BCP OBComment on above:Second trimester ([facility]); 15 weeks gestation of ([facility]); Screening, , for anatomic survey ([facility])Start: 09-02-2024 End: 03-55-8066cippvefznsRPJ RAMEYNot AvailableStart: 09-02-2024 End: 82-81-7480Moippn Herson ARELLANO Work Phone: [facility] BCP OBStart: 09-02-2024 End: 34-60-4793Rjiaot Herson ARELLANO Work Phone: [facility] BCP OBStart: 08-31-2024 End: 99-92-1909Megkeeudl Result EncounterCorey William DO Work Phone: noms External Department UnsolicitedStart: 08-31-2024 End: 20-52-2228Cvdskzlnm Result EncounterCorey William DO Work Phone: noms External Department UnsolicitedStart: 08-05-2024 End: 59-98-0236Ffmskm flowsheetCorey William DO Work Phone: noms BCP OBStart: 08-05-2024 End: 76-47-8442Hymxcw flowsheetCorey William DO Work Phone: noms BCP OBStart: 08-05-2024 End: 82-65-0398Wcqzfprm flow sheetCorey William DO Work Phone: noms BCP OBComment on above:First trimester ; 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 ; 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)Start: 08-05-2024 End: 28-81-7753kferzuusknZVSMO FAZIONot AvailableStart: 07-18-2024 End: 81-89-1407Goejfnarf Result EncounterGeneric External Data ProviderNOMS External Department UnsolicitedStart: 07-18-2024 End: 98-47-5836Ohwthmvjn Result EncounterGeneric External Data ProviderNOMS External Department UnsolicitedStart: 07-16-2024 End: 79-88-7289Qekgjn outpatient visit 5 minutesNoms Bcp Ob William NurseNOMS BCP OBComment on above:GA: 3d2aWnlrs: 07-16-2024 End: 55-60-9365valnijmbwhATPHP FAZIONot AvailableStart: 02-26-2024 End: 86-35-0514Syaackv encounter procedureDavid A Pocos DO Work Phone: noms NB ORTHOComment on above:S/P reconstruction of ACL of left knee using bone-patellar tendon-bone autograft (Primary Dx)Start: 02-26-2024 End: 10-28-5622piwafaspbqMLOBB A POCOSNot AvailableStart: 02-19-2024 End: 40-71-4658Xcxoag outpatient visit 25 minutesEdjay Payne MD Work Phone: [facility] CI FM 100Comment on above:Subclinical hypothyroidism (CMS/HCC) (Primary Dx); 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CMS/HCC); Cigarette smoker; Non morbid obesity due to excess calories; Postural orthostatic tachycardia syndrome (POTS); Abnormal bleeding in menstrual cycleStart: 02-19-2024 End: 38-63-3794ygsdqetnouCFIZSWCristal Parisi AvailableStart: 02-19-2024 End: 94-77-1576Btetgg Rodriguez Payne MD Work Phone: [facility] CI FM 100Start: 02-19-2024 End: 09-01-3707Tqfoum Rodriguez Payne MD Work Phone: [facility] CI FM 100Start: 12-27-2023 End: 69-84-0837tqhmfokrgmElzn J Spriggs PT Work Phone: N[facility] FB PTComment on above:Acute pain of left knee (Primary Dx); Status post arthroscopic reconstruction of anterior cruciate ligament of left knee using quadricepstendon autograftStart: 12-27-2023 End: 49-25-9298Elmjpw Za Nagy PT Work Phone: NOM[facility] FB PTStart: 12-27-2023 End: 94-23-4089Wnywcr Za Nagy PT Work Phone: NOBY FB PTStart: 12-24-2023 End: 25-38-8186updscxhznbRmdhhsmv Wright ZMT OPERATOR Work Phone: NOMS FB PTComment on above:Acute pain of left knee (Primary Dx); Status post arthroscopic reconstruction of anterior cruciate ligament of left knee using quadricepstendon autograftStart: 12-24-2023 End: 07-62-7990Gbjpds JooixkearaLibratonemaribel Vieira ZMT OPERATOR Work Phone: NOMS FB PTStart: 12-24-2023 End: 77-57-2758Zvsyjg JooixkearaLibratonemaribel Vieira ZMT OPERATOR Work Phone: NOXW FB PTStart: 12-17-2023 End: 72-64-7231etcqtykjiiYcka Pari Lilo PT Work Phone: [facility] FB PTComment on above:Acute pain of left knee (Primary Dx); Status post arthroscopic reconstruction of anterior cruciate ligament of left knee using quadricepstendon autograftStart: 12-17-2023 End: 65-79-7426Nqboim flowsheetKystuart Yañez Lilo PT Work Phone: [facility] FB PTStart: 12-17-2023 End: 61-88-8390Oiafok Za Yañez Lilo PT Work Phone: NOSS FB PTStart: 12-09-2023 End: 73-63-2643Lupert Isabel Schwartz DO Work Phone: [facility] SWS ORTHOAOStart: 12-09-2023 End: 89-65-4481Aobdpn Isabel Schwartz DO Work Phone: [phone] SWS ORTHOAOStart: 12-09-2023 End: 92-84-9979Vrcckic encounter Hans Schwartz DO Work Phone: [facility] SWS ORTHOAOComment on above:Left knee injury, initial encounter (Primary Dx)Start: 12-03-2023 End: 90-46-9878xtexdsytymEsohstky Vieira ZMT OPERATOR Work Phone: [facility] FB PTComment on above:Acute pain of left knee (Primary Dx); Status post arthroscopic reconstruction of anterior cruciate ligament of left knee using quadricepstendon autograftStart: 12-03-2023 End: 68-07-0023Ukdxlq Nikita Vieira ZMT OPERATOR Work Phone: N[facility] FB PTStart: 12-03-2023 End: 04-44-1492Kivczh Nikita Vieira ZMT OPERATOR Work Phone: [facility] FB PTStart: 11-19-2023 End: 60-61-8664yvogfxxkcvDfdhxs Tattersall PTANOMS FB PTComment on above:Acute pain of left knee (Primary Dx); Status post arthroscopic reconstruction of anterior cruciate ligament of left knee using quadricepstendon autograftStart: 11-19-2023 End: 70-00-4571Kjqacl flowsheetJennifer Tattersall PTANOMS FB PTStart: 11-19-2023 End: 92-46-4467Rjsumb flowsheetMariah Tattersall PTANOMS FB PTStart: 11-12-2023 End: 77-55-9904wrxkzofgbcPuzkdmvy Wright ZMT OPERATOR Work Phone: noms FB PTComment on above:Acute pain of left knee (Primary Dx); Status post arthroscopic reconstruction of anterior cruciate ligament of left knee using quadricepstendon autograftStart: 11-12-2023 End: 77-67-0692Rxyrqs Nikita Vieira ZMT OPERATOR Work Phone: noms FB PTStart: 11-12-2023 End: 61-46-0934Lbfaso JooixkearaSplick.itbrian Vieira ZMT OPERATOR Work Phone: noMS FB PTStart: 48-38-9739Jyh-patient / Non-visitMD Rosalie Payne Work Phone: [facility] Work Phone: Start: 09-02-2023 End: 08-98-1236Sturckdff to same day surgery centerMD Rosalie Payne Work Phone: [facility] Work Phone: Start: 09-02-2023 End: 40-84-2254brpvzhvjdcJP Rosalie Payne Work Phone: [facility] Work Phone: Start: 07-25-2023 End: 18-39-7935slfrehmwakMqhxjjyqlMer[facility] Work Phone: Start: 07-25-2023 End: 35-09-0865Xxmummv encounter procedureSophie Physician Group[facility] Work Phone: Start: 04-23-2023 End: 03-49-9427fdistlvgltBfsoc A PocosFacility:FTMCStart: 98-44-2680Qbaxt Jennifer Nagy PT Work Phone: noms FB PTStart: 04-03-2023 End: 36-24-2069rotufedkyuYtnpf A PocosFacility:FTMCStart: 04-03-2023 End: 26-05-4163Hcxjzmk encounter procedureDavid A Pocos [facility] Start: 04-01-2023 End: 08-40-4969vwjhaexnyiGjwadg Kristine Other [employer] Other Start: 90-51-2014Fmupgo outpatient visit 15 minutes Destinee GrobFPG Urgent Care ClydeStart: 05-01-2022 End: 82-25-7272sqqxlkkdboRG DOC WILLIAM .Facility:N0Ihfop: 08-21-2021 End: 73-37-2473mkwteaizyqOsmuus Dymond Other nort [employer] Other Start: 32-21-2239Iosxvn outpatient visit 15 minutes Carlie ThomasFPG Urgent Care ClydeStart: 07-26-2021 End: 97-35-5512voredbamlqKX DOC WILLIAM .Facility:E6Mukry: 86-73-6691Oovtholzq department patient visitARTIS YODERMercy Health Anderson Hospitaltart: 05-24-2021 End: 52-24-7243Dldgqhmyw department patient visitArtis Yoder DO Work Phone: [facility] EDComment on above:Contusion of left knee, initial encounter (Primary Dx)Start: 05-11-2021 End: 20-00-8707uikgoezmyuHnbinjgpj Breault [facility] [employer] Other Start: 03-39-9621Tikzdr outpatient visit 15 minutes Adriana EvangelistaFPG Urgent Care ClydeStart: 05-01-2021(URG) Urgent Care Visit Carlie ThomasFPG Urgent Care ClydeStart: 05-01-2021 End: 99-64-1460shdwajturzEjwohz Dymond Other nort [employer] Other Start: 04-07-2021 End: 37-64-3096znqbioikcgUfwvxv Ashley Other [facility] [employer] Other Start: 47-18-3478Ediicm outpatient visit 15 minutes Sandeep RamirezFPG Urgent Care ClydeStart: 12-14-2020 End: 93-88-4167Rqvjfmslk department patient visitCIPRIAN RANDFairfield Medical Centertart: 12-14-2020 End: 40-47-3927Hzgruejmx department patient visitCiprian Frankie MURRIETA Work Phone: [facility] EDComment on above:Tailbone injury, initial encounter (Primary Dx)Start: 09-19-2020 End: 43-18-2539Hwlxnpitv department patient visitAvita Health [facility] EDComment on above:Closed head injury, initial encounter (Primary Dx)Start: 07-15-2017 End: 90-85-6428JzizmlypucQDUVBF P VARGASCOhioHealth Berger Hospital: 05-15-2017 End: 75-25-0977ScminknvtvYLYCYZ P VARGASCwvumedicine [facility] hospitaland [facility]: 04-30-2017 End: 57-96-5391IhbrnuwyjhZQCPZY P VARGASCwvumedicine barn[facility] hospitaland [facility]: 04-29-2017 End: 64-22-8530XddkehjlseXYIUBC P VARGASCOhioHealth Berger Hospital: 03-13-2017 End: 54-71-5745EwiaijwbwzAUCZT MCKENZIE PABLOFacility:[facility] Procedures DateProcedureProcedure DetailPerforming ClinicianStart: 47-48-0386ST OB BPP W NON-STRESSCorey William DO Work Phone: Start: 17-22-2488FCT THYROID STIM HORMONECorey William DO Work Phone: Start: 61-80-8219SC OB BPP W NON-STRESSCorey William DO Work Phone: Start: 50-48-9206Timgv dip stick/tablet rgnt non-auto w/o micrscpAmy Dm ARELLANO Work Phone: Start: 04-60-0554VT OB BPP W NON-STRESSCorey William DO Work Phone: Start: 53-14-6888Jlnmi dip stick/tablet rgnt non-auto w/o micrscpCorey William DO Work Phone: Start: 42-31-7353DH OB BPP W NON-STRESSGeneric External Data ProviderStart: 26-48-6753IH OB GROWTHGeneric External Data ProviderStart: 19-96-5399YY OB BPP W NON-STRESSGeneric External Data ProviderStart: 43-38-3635VYX THYROID STIM HORMONECorey William DO Work Phone: Start: 05-65-1736Dqyez dip stick/tablet rgnt non-auto w/o micrscpKristina Enio STR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 Work Phone: Start: 21-74-4093Oszox dip stick/tablet rgnt non-auto w/o micrscpCorey William DO Work Phone: Start: 27-24-7866Xxywy dip stick/tablet rgnt non-auto w/o micrscpKristina Enio STR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 Work Phone: Start: 93-00-1211ZA ECHO DOPPLER COMPLETEGeneric External Data ProviderStart: 05-48-8204IGM 12-LEADGeneric External Data Provider Start: 54-04-5769DHH CBC WITH AUTO DIFFKristina Enio STR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 Work Phone: Start: 29-11-4342VMRXOHVZC VAGINITIS (HTRX)Luna Enio STR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 Work Phone: Start: 84-84-0018Mcmxq dip stick/tablet rgnt non-auto w/o micrscpLuna Conraderly STR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 Work Phone: Start: 54-36-5268RHY,APTIMA HPV,AGE GDLNAmy Dm PA Work Phone: Start: 61-72-8499GE OB CERVICAL LENGTHCorey William DO Work Phone: Start: 58-00-3982Gbqjt dip stick/tablet rgnt non-auto w/o micrscpCorey William DO Work Phone: Start: 75-39-2425PLW THYROID STIM HORMONECorey William DO Work Phone: Start: 83-47-2000Pogpc dip stick/tablet rgnt non-auto w/o micrscpAmy Dm ARELLANO Work Phone: Start: 37-26-8638XJH THYROID STIM HORMONEGeneric External Data ProviderStart: 12-91-2815Azvzo dip stick/tablet rgnt non-auto w/o micrscpCorey William DO Work Phone: Start: 94-33-4737ORE TESTCorey William DO Work Phone: Start: 70-43-0843ANG DRUG SCREEN RAPID (URINE)Generic External Data ProviderStart: 57-60-4308Xzjhp dip stick/tablet rgnt non-auto w/o micrscpCorey William DO Work Phone: Start: 49-37-2523Woqbiymd blood count with white cell differential, automatedRosalie Payne MD Work Phone: Start: 37-04-8029Gtjanvaisslmw metabolic panelRosalie Payne MD Work Phone: Start: 49-81-1238Spqhpsgyrbgfr antibodyEdjay Payne MD Work Phone: Start: 88-10-2984ThfilnpgoevamfxutgzxjsxipfTE Rosalie Payne Work Phone: Start: 35-12-9827Dggqczr of reconstruction of anterior cruciate ligament tearStatus post arthroscopic reconstruction of anterior cruciate ligament of left knee using quadricepstendon autograftGretchen Vieira ZMT OPERATOR Work Phone: Start: 15-37-6527Kkiwiphxfh examination knee 3 views Artis Yoder DO Work Phone: Start: 57-80-2156Eopvd sacrum & coccyx minimum 2 views David Dominguez MD Work Phone: Start: 87-00-2527Gj head/brain w/o contrast material Luis Carlos Fragoso [...] of left knee using quadricepstendon autograftGretchen Vieira ZMT OPERATOR Work Phone: History of reconstruction of anterior cruciate ligament tearStatus post arthroscopic reconstruction of anterior cruciate ligament of left knee using quadricepstendon autograftKyle J Lilo PT Work Phone: History of reconstruction of anterior cruciate ligament tearStatus post arthroscopic reconstruction of anterior cruciate ligament of left knee using quadricepstendon autograftGretchen Vieira ZMT OPERATOR Work Phone: History of reconstruction of anterior cruciate ligament tearStatus post arthroscopic reconstruction of anterior cruciate ligament of left knee using quadricepstendon autograftGretchen Vieira ZMT OPERATOR Work Phone: History of reconstruction of anterior cruciate ligament tearStatus post arthroscopic reconstruction of anterior cruciate ligament of left knee using quadricepstendon autograftMariah Tattersall ZMT OPERATOR Laparoscopic excision of cyst of left ovaryDavid Pocos Plan of Treatment DateCare ActivityDetailAuthorStart: 53-19-8768Izfwdslmp vaccinationInfluenza Vaccine (#1)[facility] HealthcareComment on above:Postponed from 11/16/2024 (Patient Refused)Start: 01-27-2025 End: 62-91-0156Njuwdri encounter erqfvuhyj01/12/2025 1:40 PM EST Routine [facility] [address] [facility] [place], [id number] Doc Thomas DO [address] [place] [address] [facility]YNStart: 01-20-2025 End: 06-23-4196Dfijnnw encounter procedureNOMS Peapack OBGYNComment on above: ArrivedStart: 01-05-2025 End: 91-91-1450Xqnvkcv encounter procedureNOMS Peapack OBGYNComment on above: ArrivedStart: 12-23-2024 End: 90-19-0965Rgxbhza encounter procedureNOMS Peapack OBGYNComment on above: ArrivedStart: 12-23-2024 End: 23-81-6326Robvqdblhhdl / ancillary services kijoosevqc18/08/2025 1:30 PM EDT Ancillary Procedure [facility] [address] [facility] [place] [id number] [facility]BGYNStart: 12-09-2024 End: 10-09-8094Hrxmcki encounter procedureNOMS Alba OBGYNComment on above: ArrivedStart: 11-25-2024 End: 93-71-9764CO biophysical profile w non stress testUS biophysical profile w non stress test Imaging Routine 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), Expires: 05/25/2025[facility] Work Phone: comment on above:Expected: 11/25/2024 (Approximate), Expires: 05/25/2025Start: 11-25-2024 End: 49-82-9240CD for pregnancyUS OB follow up transabdominal approach Imaging Routine Evan's disease Expected: 11/25/2024, Expires: 03/27/2025NOMS HealthcareComment on above:Expected: 11/25/2024, Expires: 03/27/2025Start: 11-25-2024 End: 10-38-3203Auabulr encounter procedureNOMS Alba OBGYNComment on above: ArrivedStart: 68-21-7891ZMPCM-19 Vaccine ()COVID-19 Vaccine ()[facility]OMS HealthcareStart: 60-06-1559Zqlukithu vaccinationNOMS HealthcareStart: 10-28-2024 End: 59-15-8600Ldgckvp encounter procedureNOMS BCP OBComment on above:Arrived Start: 10-28-2024 End: lead ECGECG 12 lead unit performed ECG Routine Heart palpitations Expected: 10/28/2024 (Approximate), Expires: 10/28/2025NODE HealthcareComment on above:Expected: 10/28/2024 (Approximate), Expires: 10/28/2025Start: 10-28-2024 End: 65-04-3821IGY panel - Blood by Automated countCBC Lab Routine Diabetes mellitus screening Expected: 10/28/2024 (Approximate), Expires: 10/28/2025[facility] Work Phone: comment on above:Expected: 10/28/2024 (Approximate), Expires: 10/28/2025Start: 10-28-2024 End: 17-73-1222Yzupovegttkezu 2D completeEchocardiogram 2D complete Echocardiography Routine Heart palpitations Expected: 10/28/2024 (Approximate), Expires: 10/28/2026NODE HealthcareComment on above:Expected: 10/28/2024 (Approximate), Expires: 10/28/2026Start: 10-28-2024 End: 11-42-1681Dchsxqzvycs of glucose 1 hour after glucose challenge for glucose tolerance testGlucose tolerance, 1 hour Lab Routine Diabetes mellitus screening Expected: 10/28/2024 (Approximate), Expires: 10/28/2025NOMS HealthcareComment on above:Expected: 10/28/2024 (Approximate), Expires: 10/28/2025Start: 09-30-2024 End: 16-02-1281Nzsmkan encounter mbtexwqwc65/16/2025 3:40 PM EDT Routine [facility] [address] [facility] [place] [phone] Doc Thomas, DO [address] [place], [place] [address] [place], [place] [id number] NOM[facility] BCP OBStart: 09-30-2024 End: 15-63-4817Tkmssgptkyre / ancillary services grtfaebqww26/16/2025 2:30 PM EDT Ancillary Procedure [facility] [address] [place] [address] NOMS BCP OBStart: 09-02-2024 End: 82-26-2827Tkhouaq encounter procedureNODE BCP OBComment on above:Arrived Start: 09-02-2024 End: 06-31-2337Wjubw fetoprotein, maternalAlpha fetoprotein, maternal Lab Routine Second trimester ([facility]) Expected: 09/02/2024 (Approximate), Expires: 11/02/2024NODE HealthcareComment on above:Expected: 09/02/2024 (Approximate), Expires: 11/02/2024Start: 09-02-2024 End: 88-60-3902DC for pregnancyUS OB 14+ weeks anatomy scan Imaging Routine Screening, , for anatomic survey ([facility]) Expected: 09/02/2024, Expires: 12/03/2024[facility] Work Phone: comment on above:Expected: 09/02/2024, Expires: 12/03/2024Start: 08-05-2024 End: 36-15-0873Zedxgdj encounter procedureNODE BCP OBComment on above:Arrived Start: 07-16-2024 End: 30-40-2575XZC/RhABO/Rh Lab Routine Missed menses , unspecified gestational age Expected: 07/16/2024 (Approximate), Expires: 07/16/2025NODE HealthcareComment on above:Expected: 07/16/2024 (Approximate), Expires: 07/16/2025Start: 07-16-2024 End: 02-78-0750Vlxxv type and Indirect antibody screen panel - BloodType and screen Lab Routine Missed menses , unspecified gestational age Expected: 07/16/2024 (Approximate), Expires: 07/16/2025NODE HealthcareComment on above:Expected: 07/16/2024 (Approximate), Expires: 07/16/2025Start: 07-16-2024 End: 96-82-5219Jafdx of abuse panel - Urine by Screen methodRapid drug screen, urine Lab Routine , unspecified gestational age Encounter for supervision of normal first in first trimester Expected: 07/16/2024 (Approximate), Expires: 07/16/2025NODE HealthcareComment on above:Expected: 07/16/2024 (Approximate), Expires: 07/16/2025Start: 07-10-2024 End: 04-70-8931YN Pelvis transvaginalUS OB transvaginal Imaging Routine Missed menses Expected: 07/10/2024, Expires: 10/09/2024[facility] Work Phone: comment on above:Expected: 07/10/2024, Expires: 10/09/2024Start: 02-21-2024 End: 90-05-9035Zotguov encounter xiuymzjym60/06/2024 8:00 AM EST Office Visit [facility] [address] [place] [address] Myron Marroquin DO [address] [place] [address] N[facility]S SWS ORTHOAOStart: 02-19-2024 End: 16-25-6440Ayuionz encounter ndasazypd76/04/2024 3:30 PM EST Office Visit [facility] 100 [address] [facility] [address] [place] [address] Rosalie Payne MD [address] [facility] [address] [place] [address] (Fax) 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CMS/HCC); Chronic fatigue; Cigarette smoker; Non morbid obesity due to excess caloriesNOMS CI FM 100Comment on above: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CMS/HCC); Chronic fatigue; Cigarette smoker; Non morbid obesity due to excess caloriesStart: 02-19-2024 End: 60-13-7572Tncsjux, randomInsulin, random Lab Routine Non morbid obesity due to excess calories Postural orthostatic tachycardia syndrome (POTS) Expected: 02/19/2024 (Approximate), Expires: 02/18/2025[facility] Work Phone: Comment on above:Expected: 02/19/2024 (Approximate), Expires: 02/18/2025Start: 01-17-2024 End: 93-52-4794ysquafcrej64/01/2024 2:30 PM EDT Treatment [facility] [address] [place] [phone] Stefano Nagy, PT [address] [place] [address] NOMS FB PTStart: 01-14-2024 End: 12-04-1858cxjogujrqg45/29/2024 3:30 PM EDT Treatment [facility] [address] [place] [phone] Nereyda Vieira, ZMT OPERATOR [address] [place] [address] NOMS FB PTStart: 01-10-2024 End: 12-33-1850bsgkkutejk32/25/2024 2:30 PM EDT Treatment [facility] PT [address] [place] [phone] Stefano Nagy, PT [address] [place] [address] NOMS FB PTStart: 01-07-2024 End: 16-48-3492dakwuajyhf96/22/2024 3:30 PM EDT Treatment [facility] PT [address] [place] [phone] Stefano Nagy, PT [address] [place] [address] [facility] FB PTStart: 01-03-2024 End: 87-73-1145zkdngzddvv03/18/2024 2:30 PM EDT Treatment [facility] PT [address] [place] [phone] Stefano Nagy, PT [address] [place] [address] [facility] FB PTStart: 12-31-2023 End: 60-07-8062eomuugfugl17/15/2024 3:30 PM EDT Treatment [facility] PT [address] [place] [id number] Jennifer Dozier PTANOMS FB PTStart: 12-27-2023 End: 83-69-0382wpwozheiemOCUF FB PTComment on above:ArrivedStart: 12-24-2023 End: 04-93-4880oufdykwjvf42/08/2024 3:00 PM EDT Treatment [facility] FB PT [address] [place] [phone] Nereyda Vieira, ZMT OPERATOR [address] [place] [address] NOMS FB PTStart: 12-17-2023 End: 18-51-2331ovhljxuavu35/01/2024 3:00 PM EDT Treatment [facility] FB PT [address] [place] [phone] Stefano Nagy, PT [address] [facility] [place] [address] NOMS FB PTStart: 12-09-2023 End: 24-07-1608Sdyxldg encounter procedureNOMS [facility] ORTHOAOComment on above: ArrivedStart: 12-03-2023 End: 16-39-3722xsqqdzyxaz71/17/2024 3:30 PM EDT Treatment [facility] FB PT [address] [facility] [place] [address] Angela Vieiratchen, ZMT OPERATOR [address] [place] [address] ArrivedNOMS FB PT Comment on above:ArrivedStart: 11-19-2023 End: 33-54-0427ahwztiyopwGHUV FB PTComment on above:Acute pain of left knee (Primary Dx); Status post arthroscopic reconstruction of anterior cruciate ligament of left knee using quadricepstendon autograftStart: 08-06-0268Oypszkemp vaccination Influenza Vaccine (#1)NOMS HealthcareStart: 87-23-1140YvfizjisxWilson Healthtart: 05-07-2023 End: 61-08-6542Ycvugkq encounter ugbckiwps03/20/2024 11:10 AM EST Office Visit NOM[facility] OB [address] [place] [phone] Doc Thomas, DO [address] [place] [address] NOMS BCP OBStart: 05-03-2023 End: 14-54-6229Vdazshf encounter txbszcalq46/16/2024 11:00 AM EST Office Visit N[facility]S [facility] ORTHOAO [address] [place] [phone] Myron Marroquin, DO [address] [place] [address] NOMS SWS ORTHOAOStart: 04-23-2023 End: 37-50-8238Nxevegr encounter ubfftvqav65/06/2024 8:00 AM EST Procedure Visit NOMS EXT Myron Huerta, DO [address] [place] [address] NOMS EXT DEPStart: 04-22-2023 End: 69-74-6591imqsxebqtz04/05/2024 2:30 PM EST Evaluation NOMS JESENIA PT [address] [place] [address] Stefano Nagy, PT [address] [place] [address] NOMS FB PTStart: 69-51-3074Tswoacbrz vaccinationInfluenza Vaccine (#1)[facility] HospitalStart: 71-46-7964GXpK/Tdap/Td vaccine (5 - Td or Tdap)DTaP/Tdap/Td vaccine (5 - Td or Tdap)[facility]Start: 27-71-8570Tcbrktsep vaccinationFlu vaccine (#1)[facility] HospitalStart: 31-03-3833Vznooxldx for malignant neoplasm of cervixSub[facility] Start: 70-05-0214DEvW/Tdap/Td vaccine (1 - Tdap)DTaP/Tdap/Td vaccine (1 - Tdap) [facility] Work Phone: start: 51-53-1643Fwfpwwhorsyr Vaccine: Pediatrics (0 to 5 Years) and At-Risk Patients (6 to 64 Years) (1 of 2 - PCV)Pneumococcal Vaccine: Pediatrics (0 to 5 Years) and At-Risk Patients (6 to 64 Years) (1 of 2 - PCV)[facility] HospitalStart: 10-76-4666Avtmzyssx for Chlamydia trachomatis Chlamydia screenSuburban Community Hospital & [facility] HealthStart: 92-24-5768OAS screeningHIV screenSuburban Community Hospital & [facility] Health Start: 39-90-3810Ytrvdrpbg vaccine (2 of 2 - 2-dose childhood series)Varicella vaccine (2 of 2 - 2-dose childhood series)[facility] HospitalStart: 25-67-9751CZWVI-19 Vaccine (1)COVID-19 Vaccine (1)MYR Phone: start: 10-53-5920Lfpnurkdne ScreenDepression Screen [facility]: 28-01-1764MJN vaccine (1 - 2-dose series)HPV vaccine (1 - 2- dose series)[facility]: 29-14-3220WWLMG-19 Vaccine (1)COVID-19 Vaccine (1)[facility]: 75-44-9379Tewbhxsfn vaccine (1 of 2 - 2-dose childhood series)Varicella vaccine (1 of 2 - 2-dose childhood series)[facility] Phone: start: 19-82-3919Ammdydemn C screeningHepatitis C screenMercy HealthBacteria identified in Urine by CultureUrine culture Microbiology Routine Missed menses Ordered: 07/16/2024[facility] HealthcareComment on above:Ordered: 07/16/2024BC W Auto Differential panel - BloodCBC and differential Lab Routine Missed menses , unspecified gestational age Ordered: 07/16/2024[facility] HealthcareComment on above:Ordered: 07/16/2024HLAMYDIA TRACHOMATIS (GENITO/STI)CHLAMYDIA TRACHOMATIS (GENITO/STI) Lab Routine STD exposure Ordered: 10/28/2024[facility] HealthcareComment on above:Ordered: 10/28/2024 Cytology Cervical or vaginal smear or scraping studyPap Smear Pathology and Cytology Routine Well woman exam with routine gynecological exam Ordered: [facility] HealthcareComment on above:Ordered: 10/28/2024Hemoglobin A1c/Hemoglobin.total in BloodHemoglobin A1c Lab Routine Missed menses , unspecified gestational age Ordered: 07/16/2024[facility] HealthcareComment on above: Ordered: 07/16/2024Hepatitis B virus surface Ag [Presence] in Serum or Plasma by ImmunoassayHepatitis B surface antigen Lab Routine Missed menses , unspecified gestational age Ordered: 07/16/2024[facility] HealthcareComment on above: Ordered: 07/16/2024Hepatitis C virus Ab [Presence] in Serum or Plasma by ImmunoassayHepatitis C antibody Lab Routine Missed menses , unspecified gestational age Ordered: 07/16/2024[facility] HealthcareComment on above:Ordered: 07/16/2024HIV-1/HIV-2 antigen/antibody combination immunoassayHIV-1 and HIV-2 antibodies Lab Routine Missed menses , unspecified gestational age Ordered: 07/16/2024[facility] HealthcareComment on above:Ordered: 07/16/2024Neisseria gonorrhoeae DNA [Presence] in Unspecified specimen by QUEENIE with probe detection Neisseria gonorrhea DNA probe, direct Lab Routine STD exposure Ordered: 10/28/2024[facility] HealthcareComment on above:Ordered: 10/28/2024Patient Education Hiatal hernia Hemorrhoids Gastritis Know your [facility] Work Phone: Reagin Ab [Presence] in Serum by RPRRPR Lab Routine Missed menses , unspecified gestational age Ordered: 07/16/2024[facility] HealthcareComment on above:Ordered: 07/16/2024Rubella antibody, IgGRubella antibody, IgG Lab Routine Missed menses , unspecified gestational age Ordered: 07/16/2024[facility] HealthcareComment on above:Ordered: 07/16/2024 SURESWAB(R) ADVANCED VAGINITIS PLUS, TMASURESWAB(R) ADVANCED VAGINITIS PLUS, TMA Pathology and Cytology Routine STD exposure Ordered: 10/28/2024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 MemberRelationshipSpecialtyStart DateEnd Date Rosalie Payne MD [address] [place] [address] (Fax) PCP - GeneralFamily Medicine07/24/22 Rosalie Payne MD [address] [place] [address] (Fax) PCP - [place] [facility]06/16/20Team MemberRelationshipSpecialtyStart DateEnd Date Rosalie Payne MD [address] [place] [address] (Fax) PCP - Generalmily Medicine07/24/22 Rosalie Payne MD [address] [place] [address] (Fax) PCP - [place] [facility]06/16/20Team MemberRelationshipSpecialtyStart DateEnd Date Rosalie Payne MD [address] [place] [address] (Fax) PCP - Generalmily Medicine07/24/22 Rosalie Payne MD [address] [place] [address] (Fax) PCP - [facility]06/16/20Team MemberRelationshipSpecialtyStart DateEnd Date Rosalie Payne MD [address] [place] [address] (Fax) PCP - [facility]07/24/22 Rosalie Payne MD [address] [facility] [place] [address] (Fax) PCP - [facility]06/16/20Te MemberRelationshipSpecialtyStart DateEnd Date Rosalie Payne MD [address] [facility] [address] [place] [address] (Fax) PCP - [facility]07/24/22 Rosalie Payne MD [address] [facility] [address] [place] [address] (Fax) [facility]06/16/20Te MemberRelationshipSpecialtyStart DateEnd Date Rosalie Payne MD [address] [facility] [address] [place] [address] (Fax) PCP - [facility]07/24/22 Rosalie Payne MD [address] [place] [address] [place] [address] (Fax) PCP - [facility]06/16/20 Goals (unrecognized section and content) Goals may [...] BE BASED ON THE PRIMARY CLINICAL RECORDS. [facility]. provides no warranty or guarantee of the accuracy or completeness of information in this document.
--- OUTSIDE RECORDS SUMMARY | 2025-01-27 19:58 | XMS_ITS | Encounter Summary ---
Author Organization [facility] Address [address] [place] [address] Care Team Providers Care Regional Forester Name Role Phone Danny Payne MD Primary Care Provider [phone] Danny Payne MD Unavailable [phone] Encounter Details DateTypeDepartmentCare Team (Latest Contact Info)Wnxuomyokmt03/05/2025Clinisync Result Encounter [facility] External Department Unsolicited Sintia Thomas, DO [address] [facility] [place] [address] Social History Tobacco UseTypesPacks/DayYears UsedDateSmoking Tobacco: Some [...] week12/11/2022How often do you attend rastafari or jehovah's witness services?More than 4 times per year12/11/2022o you belong to any clubs or organizations such as rastafari groups, unions, [employer] or athletic groups, or school groups?No12/11/2022How often [...] care, and heating?Somewhat hard 12/11/2022[facility] [place] of Occupational Health - Occupational Stress QuestionnaireAnswerDate RecordedDo you feel stress - tense, restless, nervous, or anxious, or unable to sleep at night because yourmind is troubled all the time - these days?Only a clwlzt0112/11/2022Exercise Vital SignAnswerDate Recorded On average, how many [...] degree you have received?11th grade12/10/2022Estimated Date of FrtqhsifOcokzkiiHvn49/06/2025Based on last menstrual period of 05/16/2024Sex and Gender InformationValueDate RecordedSex Assigned at HaihnQtfrxw49/25/2023 10:10 AM EDTLegal PlrJmmxgz48/15/2023 6:51 PM EDTGender OrzotjznJdbnvt82/25/2023 10:10 AM EDTSexual OrientationNot on filedocumented as of this encounter Plan of Treatment DateTypeDepartmentCare Team (Latest Contact Info)Czpjimymdwu66/19/2025 1:20 PM ESTRoutine [facility] [address] [place] [phone] Sintia Thomas DO [address] [facility] [address] [place], [place] [address] documented as of this encounter Procedures Procedure NamePriorityDate/TimeAssociated DiagnosisCommentsUS OB BPP W NON-KBJBCY3001/20/2025 5:10 PM EST documented in this encounter Results * US OB BPP W NON-STRESS (01/20/2025 5:10 PM EST)Anatomical Region LateralityModalityOtherSpecimen (Source)Anatomical Location / Laterality Collection Method / VolumeCollection TimeReceived Time01/20/2025 5:10 PM EST Narrative 01/20/2025 5:13 PM EST [facility] ?[address] ? [place] [address] ? Ultrasound Report ? Signed ? Patient: ALETA CASTRO ?MR#: [id number] ?? : 2000 ?Acct:[id number] ?? Age/Sex: 24 / F ?ADM Date: 01/20/25 ?? Loc: FBCO ? Attending Dr: Sintia Thomas D.O. ? Ordering Physician: Sintia Thomas D.O. ?? Date of Service: 01/20/25 ?? Procedure(s): US OB BPP w non-stress ?? Accession Number(s): [id number] ? cc: Sintia Thomas D.O.; DANNY PAYNE ? [facility] ? [address] ? [place] [address] ? Patient Name: ?? ALETA N RAKEL ? MRN: [facility]:[id number] ? date: 2000 ?Sex: F ?? Assigned Patient Location: FBC ?? Current Patient Location: ? Accession/Order Number: [id number] ?? Exam Date: 01/20/2025 ??15:17 ?Report Date: [...] Dictation Location: RADIO-PC-20 ? Electronically authenticated by: [id number] ??Y ?? Date: 01/20/2025 ??17:10 ? Dictated By: ?Loi Ellington D.O. ? Signed By: ?11/05/25 1713 ? DD/ 1710 ? TD/TT: ? Relief Mate: Procedure Note Radiology, Radiologist, MD - 11/05/2025 [place] [address] Ultrasound Report Signed Patient: ALETA CASTRO NMR#: [id number] : 2000Acct:[id number] Age/Sex: 24 / FADM Date: 01/20/25 Loc: FBCO Attending Dr: Sintia Thomas D.O. Ordering Physician: Sintia Thomas D.O. Date of Service: 01/20/25 Procedure(s): US OB BPP w non-stress Accession Number(s): [id number] cc: Sintia Thomas D.O.; DANNY PAYNE The [place] [id number] Patient Name: ALETA CASTRO MRN: [id number] date: 2000 Sex: F Assigned Patient Location: [facility] Current Patient Location: Accession/Order Number: [id number] Exam Date: 01/20/2025 15:17 Report Date: 01/20/2025 [...] Ellington M.D. 01/20/2025 5:10 PM Dictation Location: [place] [address] Electronically authenticated by: [id number] Y Date: 7:10 Dictated By: Loi Ellington D.O. Signed By:01/20/251712 DD/ 09 TD/TT: Relief Mate: Authorizing ProviderResult TypeResult StatusCorey William DOCLINISYNC IMAGINGFinal Result documented in this encounter Visit Diagnoses Not on filedocumented in this encounter Care Teams Team MemberRelationshipSpecialtyStart DateEnd Date Danny Payne MD [address] [place] [address] PCP - GeneralFamily Medicine07/24/22 Danny Payne MD [address] [place] [address] PCP - Ziggy Richard06/16/20documented as of this encounter
--- OUTSIDE RECORDS SUMMARY | 2025-01-27 19:58 | XMS_ITS | Encounter Summary ---
Author Organization [facility] Address [address] [place] [address] Care Team Providers Care Gang Knife Fish Chopper Name Role Phone Danny Payne MD Primary Care Provider [phone] Danny Payne MD Unavailable [phone] Encounter Details DateTypeDepartmentCare Team (Latest Contact Info)Fyafhairyei36/08/2025Clinisync Result Encounter [facility] External Department Unsolicited Sintia Thomas, DO [address] [facility] [address] [place] [address] Social History Tobacco UseTypesPacks/DayYears UsedDateSmoking Tobacco: Some [...] relatives?Once a week12/11/2022How often do you attend jainism or presybeterian services?More than 4 times per year12/11/2022o you belong to any clubs or organizations such as jainism groups, unions, fraMECLUB or athletic groups, or school groups?No12/11/2022How often [...] medical care, and heating?Somewhat hard 12/11/2022[facility] [place] of Occupational Health - Occupational Stress QuestionnaireAnswerDate RecordedDo you feel stress - tense, restless, nervous, or anxious, or unable to sleep at night because yourmind is troubled all the time - these days?Only a itbzdn9012/11/2022Exercise Vital SignAnswerDate Recorded On average, how many [...] degree you have received?11th grade12/10/2022Estimated Date of AoswrlxdOupktsomBnx38/06/2025Based on last menstrual period of 05/16/2024Sex and Gender InformationValueDate RecordedSex Assigned at NbreqTopggw18/25/2023 10:10 AM EDTLegal YciTswewh84/15/2023 6:51 PM EDTGender WfuvaoevLrmruz23/25/2023 10:10 AM EDTSexual OrientationNot on filedocumented as of this encounter Plan of Treatment DateTypeDepartmentCare Team (Latest Contact Info)Mymtjaramee68/19/2025 1:20 PM ESTRoutine [facility] [address] [place] [phone] Sintia Thomas DO [address] [facility] [address] [place], [place] [address] documented as of this encounter Procedures Procedure NamePriorityDate/TimeAssociated DiagnosisCommentsUS OB BPP W NON-FXTGGS5301/23/2025 9:25 AM EST documented in this encounter Results * US OB BPP W NON-STRESS (01/23/2025 9:25 AM EST)Anatomical Region LateralityModalityOtherSpecimen (Source)Anatomical Location / Laterality Collection Method / VolumeCollection TimeReceived Time01/23/2025 9:25 AM EST Narrative 01/23/2025 9:28 AM EST [facility] ?[address] ? [place] [address] ? Ultrasound Report ? Signed ? Patient: RACHEL CASTRO ?MR#: [id number] ?? : 2000 ?Acct:[id number] ?? Age/Sex: 24 / F ?ADM Date: 01/23/25 ?? Loc: US ? Attending Dr: Sintia Thomas D.O. ? Ordering Physician: Sintia Thomas D.O. ?? Date of Service: 01/23/25 ?? Procedure(s): US OB BPP w non-stress ?? Accession Number(s): [id number] ? cc: Sintia Thomas D.O.; DANNY PAYNE ? [facility] ? [address] ? [place] [address] ? Patient Name: ?? RACHEL Kristina CASTRO ? MRN: [facility]:[id number] ? date: 2000 ?Sex: F ?? Assigned Patient Location: FBC ?? Current Patient Location: FBC ?? Accession/Order Number: [id number] ?? Exam Date: 01/23/2025 ??08:41 ?Report Date: [...] Dictation Location: RADIO-PC-17 ? Electronically authenticated by: [id number] ??Y ?? Date: 01/23/2025 ??09:25 ? Dictated By: ?Emmanuel Dalton M.D. ? Signed By: ?01/23/25927 ? DD/ 0925 ? TD/TT: ? Miniature Set Constructor: Procedure Note Radiology, Radiologist, - 01/23/2025 [place] [address] Ultrasound Report Signed Patient: RACHEL CASTRO NMR#: [id number] : 2000Acct:[id number] Age/Sex: 24 / FADM Date: 01/23/25 Loc: US Attending Dr: Sintia Thomas D.O. Ordering Physician: Sintia Thomas D.O. Date of Service: 01/23/25 Procedure(s): US OB BPP w non-stress Accession Number(s): [id number] cc: Sintia Thomas D.O.; DANNY PAYNE The [address] [address] Patient Name: RACHEL CASTRO MRN: [id number] date: 2000 Sex: F Assigned Patient Location: [facility] Current Patient Location: [facility] Accession/Order Number: [id number] Exam Date: 01/23/2025 08:41 Report Date: 01/23/2025 [...] Dalton M.D. 01/23/2025 9:25 AM Dictation Location: [employer] Electronically authenticated by: [id number] Y Date: 9:25 Dictated By: Emmanuel Dalton M.D. Signed By:01/23/25927 DD/ 4 TD/TT: Miniature Set Constructor: Authorizing ProviderResult TypeResult StatusCorey William DOCLINISYNC IMAGINGFinal Result documented in this encounter Visit Diagnoses Not on filedocumented in this encounter Care Teams Team MemberRelationshipSpecialtyStart DateEnd Date Danny Payne MD [address] [place] [address] PCP - GeneralFamily Medicine07/24/22 Danny Payne MD [address] [place] [address] PCP - Ziggy Richard06/16/20documented as of this encounter
--- OUTSIDE RECORDS SUMMARY | 2025-01-27 19:58 | XMS_ITS | Encounter Summary ---
Author Organization [facility] Address [address] [place] [address] Care Team Providers Care Chiropractic Teacher Name Role Phone Danny Schuler MD Primary Care Provider [phone] Danny Schuler MD Unavailable [phone] Encounter Details DateTypeDepartmentCare Team (Latest Contact Info)Yqhcbnuvfpo79/12/2025amboo flowsheet [facility] [place] [facility] [address] [facility] [address] [phone] Doc Thomas DO [address] [facility] [address] [place], [place] [address] Social History Tobacco UseTypesPacks/DayYears UsedDateSmoking Tobacco: Some [...] relatives?Once a week12/11/2022How often do you attend gnosticist or yazidi services?More than 4 times per year12/11/2022o you belong to any clubs or organizations such as gnosticist groups, unions, fraternal or athletic groups, or [...] care, and heating?Somewhat hard 12/11/2022[facility] [place] of Occupational Health - Occupational Stress QuestionnaireAnswerDate RecordedDo you feel stress - tense, restless, nervous, or anxious, or unable to sleep at night because yourmind is troubled all the time - these days?Only a ntfdbm3012/11/2022Exercise Vital SignAnswerDate Recorded On average, how many [...] degree you have received?11th grade12/10/2022Estimated Date of UhpbqarqXlatnuseEpa84/06/2025Based on last menstrual period of 05/16/2024Sex and Gender InformationValueDate RecordedSex Assigned at HkpfdYagglk52/25/2023 10:10 AM EDTLegal DanGtesbi71/15/2023 6:51 PM EDTGender ZwfzplarVdcqzl44/25/2023 10:10 AM EDTSexual OrientationNot on filedocumented as of this encounter Plan of Treatment DateTypeDepartmentCare Team (Latest Contact Info)Tmpugqvdiow32/19/2025 1:20 PM ESTRoutine [facility] [address] [facility] [address] Doc Thomas DO [address] [place] [address] documented as of this encounter Visit Diagnoses Not on filedocumented in this encounter Care Teams Team MemberRelationshipSpecialtyStart DateEnd Date Danny Schuler MD [address] [address] PCP - GeneralFamily Medicine07/24/22 Danny Schuler MD [address] [address] PCP - [place] [employer]06/16/20documented as of this encounter
--- OUTSIDE RECORDS SUMMARY | 2025-01-27 19:58 | XMS_ITS | Encounter Summary ---
Author Organization [facility] Address [address] [place] [address] Care Team Providers Care Rn Dermatology Name Role Phone Danny Schuler MD Primary Care Provider [phone] Danny Schuler MD Unavailable [phone] Encounter Details DateTypeDepartmentCare Team (Latest Contact Info)Sdhygfsoept52/05/2025amboo flowsheet KYE [place] OBGYKristina [address] [place] [id number] Pretty Chaidez PA [address] [place], [place] [address] Social History Tobacco UseTypesPacks/DayYears UsedDateSmoking Tobacco: Some [...] week12/11/2022How often do you attend gnosticist or evangelical services?More than 4 times per year12/11/2022o you belong to any clubs or organizations such as gnosticist groups, unions, fraBaremetrics or athletic groups, or school groups?No12/11/2022How often [...] food, housing, medical care, and heating?Somewhat hard 12/11/2022[facility] [place] [facility] - Occupational Stress QuestionnaireAnswerDate RecordedDo you feel stress - tense, restless, nervous, or anxious, or unable to sleep at night because yourmind is troubled all the time - these days?Only a unopvd5812/11/2022Exercise Vital SignAnswerDate Recorded On average, how many [...] degree you have received?11th grade3Estimated Date of ZchidmptCnicdkhcHvt55/06/2025Based on last menstrual period of 05/16/2024Sex and Gender InformationValueDate RecordedSex Assigned at HeapkSepnpq26/25/2023 10:10 AM EDTLegal HhpSeqhia69/15/2023 6:51 PM EDTGender KygcjmhcRsuage23/25/2023 10:10 AM EDTSexual OrientationNot on filedocumented as of this encounter Plan of Treatment DateTypeDepartmentCare Team (Latest Contact Info)Zjjqqfykfsb38/19/2025 1:20 PM ESTRoutine [facility] [address] [place] [address] Doc Thomas DO [address] [place] [address] documented as of this encounter Visit Diagnoses Not on filedocumented in this encounter Care Teams Team MemberRelationshipSpecialtyStart DateEnd Date Danny Schuler MD [address] [address] PCP - GeneralFamily Medicine07/24/22 Danny Schuler MD [address] [address] PCP - [employer]06/16/20documented as of this encounter
--- OUTSIDE RECORDS SUMMARY | 2025-01-27 19:58 | XMS_ITS | Clinical Summary ---
Author Organization [facility] Address [address] [place] [address] Care Team Providers Care Certified Physician Assistant Name Role Phone Unavailable Primary Care Provider Unavailabl e Allergies Active AllergyReactionsCriticalityNoted FjlkMokizgneOgtgidmkwnshHczyf12/05/2021 Other Reaction(s): hives OjohwJxotHxi47/05/2021 Other Reaction(s): Unknown YoguceuwtVozqjjm25/25/2023 Other Reaction(s): body numbness Medications MedicationSigDispense QuantityRefillsLast FilledStart DateEnd DateStatus ondansetron ODT (Zofran-ODT) 4 mg disintegrating tablet Take 4 mg by mouth if needed.Active no.37/iron/folic acid (PRENATA ORAL) Take by mouth in the morning.Active Active Problems ProblemNoted DateDiagnosed Date28 weeks gestation of jaetbycxt89/14/2025bnormal bleeding in menstrual cycle02/19/2024Status post arthroscopic reconstruction of anterior cruciate ligament of left knee using quadricepstendon autograft 05/10/2023cute pain of left knee4Chronic audirmv5912/10/2022igarette bmvhet6312/10/2022yst of ovary12/10/2022Hashimoto's xzfaizb1812/10/2022Hypotension determined by owdnbebjbfp08/25/2023Juvenile osteochondrosis of tibial tuberosity 12/10/2022Non morbid obesity due to excess dpuqzqyn13/25/2023ostural orthostatic tachycardia syndrome (POTS)12/14/20188382Tzbukvyexko97/15/2019Syncope and cclcwyjo24/15/2019CommentsYes Encounters DateTypeDepartmentCare RjyxInljqqizfsl11/12/2025 3:20 PM EDTOffice Visit [facility] [address] [place] [address] Bibi Singh MD Syncope and [...] file05/09/2023CommentsYesSex and Gender InformationValueDate RecordedSex Assigned at TswebOfckxw28/08/2025 2:10 PM EDT Legal GkvGbqlek44/29/2022 11:55 PM EDTGender OmtrjsroDifzed18/08/2025 2:10 PM EDTSexual OrientationHeterosexual or Dzoqgujt23/08/2025 2:10 PM EDT Last Filed Vital Signs Vital SignReadingTime TakenCommentsBlood Ehkndgdd410/8009 4:02 PM EDT Ggjxx449911/27/2024 4:02 PM EDTTemperature--Respiratory Rate--Oxygen Shpuowtypr73% 11/27/2024 4:02 PM EDTInhaled Oxygen Concentration--Qfnbuc42 kg (172 lb) 11/27/2024 4:02 PM WFAQcisbx666.1 cm (5' 5 )11/27/2024 4:02 PM EDTBody Mass Index28.62011/27/2024 4:02 PM EDT Plan of Treatment Health MaintenanceDue DateLast DoneCommentsIPV Vaccines (4 of 4 - 4-dose series) , 1999, 1999Depression Nfbtrptzk50/25/2012 Varicella Vaccines (2 of 2 - 2-dose childhood series)HPV Vaccines (1 - 3-dose series)06/09/2014dult Rlexvve50COVID-19 Vaccine (1 - season)2024Influenza Vaccine (#1)2024Pap Smear Zoster Vaccines (1 of 2)Pneumococcal Vaccine: Pediatrics (0 to 5 Years) and At-Risk Patients (6 to 64 Years)Aged Out 03/26/2000No longer eligible based on patient's age to complete this topicHIB IhyysmetTinfluamn72/27/2001, 09/11/2000, 03/26/2000, Additional history exists Meningococcal NzkujhcJvfofmfwl66/28/2017Meningococcal B VaccineAged OutNo longer eligible based on patient's age to complete this topicRotavirus VaccinesAged Out No longer eligible based on patient's age to complete this topic Insurance
--- OUTSIDE RECORDS SUMMARY | 2025-01-27 19:58 | XMS_ITS | Clinical Summary ---
Author Organization [facility] Address [address] [place] [address] Care Team Providers Care Culled Fruit Packer Name Role Phone Danny Payne MD Primary Care Provider [phone] Danny Payne MD Unavailable [phone] Allergies Active AllergyReactionsCriticalityNoted HzfqAcprvhfrZfmldbdjmsxdNfszx51/05/2021 Other Reaction(s): hives EohfoVzipPwi57/05/2021 Other Reaction(s): Unknown Zhszplpun42/25/2023 Other Reaction(s): body numbness Medications MedicationSigDispense QuantityRefillsLast FilledStart DateEnd DateStatus ondansetron (Zofran) 4 MG tablet Indications:Nausea and vomiting in ([facility])Take 1 tablet (4 mg) by mouth every 6 (six) hours if needed for nausea or vomiting for up to 30 doses Take 1 tablet by mouth every 6 hours as needed for nausea. 30 tablet 5Active Active Problems ProblemNoted DateDiagnosed DateAbnormal bleeding in menstrual cycle02/19/2024 Status post arthroscopic reconstruction of anterior cruciate ligament of left knee using quadricepstendon syogfmdvz42/23/2024cute pain of left knee04/22/2023 Chronic uhhexqr2012/10/2022igarette bswvee8212/10/2022yst of ovary12/10/2022 Gabby's hrzozyx9812/10/2022Hypotension determined by oqqkloqfmcc04/25/2023 Juvenile osteochondrosis of tibial rihsdonrac91/25/2023Non morbid obesity due to excess lagtdlct15/25/2023ostural orthostatic tachycardia syndrome (POTS) 12/10/2022Subclinical wtrlnvqbgycigr42/25/2023Estimated Date of Delivery DtxadlvuBsd77/06/2025Based on last menstrual period of 05/16/2024 Resolved Problems ProblemNoted DateDiagnosed DateResolved DateOverweight (BMI 25.0-29.9)12/10/2022 02/19/2024 Encounters DateTypeDepartmentCare KkcpRiynzlaxbow51/12/2025 1:40 PM ESTRoutine [facility] [address] [place] [address] Sintia Thomas, DO 36 weeks gestation of ([facility]); Third trimester ([facility]); Gabby's disease; Low hemoglobin; Heart palpitations; Pelvic pressure in ([facility])01/27/2025amboo flowsheet [facility] [address] [place] [phone] Sintia Thomas, DO 5Clinisync Result Encounter [facility]OM[facility] External Department Unsolicited Sintia Thomas, DO 01/23/2025linisync Result Encounter NOMS External Department Unsolicited Sintia Thomas, DO 01/22/2025Telephone [facility] [address] [place] [phone] Sintia Thomas, DO 01/20/2025 1:50 PM ESTRoutine [facility] [address] [place] [phone] Pretty Chaidez PA Third trimester ([facility]); 35 weeks gestation of ([facility])5Clinisync Result Encounter [facility]OM[facility] External Department Unsolicited Sintia Thomas, DO 01/20/2025amboo flowsheet [facility] [address] [place] [phone] Pretty Chaidez PA 10/27/2025Clinisync Result Encounter NOMS External Department Unsolicited Sintia Thomas, DO 01/05/2025 1:00 PM EDTRoutine [facility] [place] [facility] [address] [place] [address] Sintia Thomas, DO Third trimester ([facility]); 33 weeks gestation of ([facility])01/05/2025amboo flowsheet [facility] [place] [facility] [address] [place] [address] Sintia Thomas, DO 01/02/2025linisync Result Encounter [facility]OM[facility] External Department Unsolicited Provider, Generic External Data 12/26/2024linisync Result Encounter [facility]OM[facility] External Department Unsolicited Provider, Generic External Data 12/26/2024linisync Result Encounter [facility]OM[facility] External Department Unsolicited Provider, Generic External Data 12/26/2024linisync Result Encounter [facility]OM[facility] External Department Unsolicited Sintia Thomas, DO 12/23/2024 2:00 PM EDTRoutine [facility] [place] [facility] [address] [place] [address] Jessica Steen NP Third trimester ([facility]); 31 weeks gestation of ([facility])12/23/2024Refill [facility] [address] [place] [address] Azalea Schmitz MA Nausea and vomiting in ([facility])12/23/2024amboo flowsheet [facility] [address] [place] [address] Jessica Steen NP 12/09/2024 2:00 PM EDTRoutine [facility] [address] [place] [address] Sintia Thomas, DO Third trimester ([facility]); 29 weeks gestation of ([facility]); Yeast idtouiaqy30/24/2025Bamboo flowsheet [facility] [address] [place] [phone] Sintia Thomas, 12/01/2024Telephone [facility] [address] [place] [phone] Azalea Schmitz, JARRETT 11/27/2024bstract [facility] [place] [facility] [address] [place] [address] [place] [address] Sintia Thomas, 11/25/2024 1:50 PM EDTRoutine [facility] [place] [facility] [address] [place] [phone] Jessica Steen, GEORGES Second trimester ([facility]); 27 weeks gestation of ([facility]); Gabby's kuwkkfl7211/25/2024amboo flowsheet [facility] [place] [facility] [address] [place] [phone] Jessica Steen, GEORGES 11/24/2024linisync Result Encounter NOMS External Department Unsolicited Provider, Generic External Data 11/19/2024Telephone [facility] [place] [facility] [address] [place] [phone] Janet Narayanan MA 11/12/2024linisync Result Encounter [facility]OM[facility] External Department Unsolicited Provider, Generic External Data 11/06/2024Orders Only [facility] [address] [place] [address] Coretta Cardenas LPN 11/05/2024Telephone [facility] [place] [facility] [address] [place] [phone] Azalea Schmitz MA 11/04/2024Telephone [facility] [address] [place] [phone] Lita SchmitzJARRETT birch 11/03/2024linisync Result Encounter NOM[facility] External Department Unsolicited Provider, Generic External Data 11/03/2024Telephone [facility] [address] [place] [address] Nadir Azalea, MA 10/28/2024 2:30 PM EDTRoutine [facility] [address] [place] [address] Pretty Chaidez PA Second trimester ([facility]); 23 weeks gestation of ([facility]); Diabetes mellitus screening; STD exposure; Well woman exam with routine gynecological exam; Heart zqvinzndoeei70/13/2025linisync Result Encounter [facility]OM[facility] External Department Unsolicited Provider, Generic External Data 10/28/2024External Result Encounter [facility]OM[facility] External Department Unsolicited Jessica Steen NP 10/28/2024amboo flowsheet [facility] [address] [place] [address] Pretty Chaidez PA from Last 3 Months Immunizations ImmunizationAdministration DatesNext DueDTaP / HiB / IPV1999,1999 DTaP / Hib03/26/2000Hep A, ped/adol, 2 dose03/31/2012,08/31/2011Hep B, Adolescent or Hxxgaemnv13/27/2001,1999,1999Hep B, adult11/12/2016Hib (HbOC)09/11/2000Hib / Hep B009/11/2000IPV09/11/2000MMR09/11/2000Meningococcal YAB0R4811/12/2016Pneumococcal Conjugate PCV 7003/26/20007403Vspm70/15/2012Varicella 08/31/2011 Family History Medical HistoryRelationNameCommentsNo Known ProblemsBrotherHyperlipidemia [...] week12/11/2022How often do you attend zoroastrianism or evangelical services?More than 4 times per year12/11/2022o you belong to any clubs or organizations such as zoroastrianism groups, unions, fraternal or athletic carmen ups, or school groups?No12/11/2022How often do you attend meetings of the clubs or organizations you belong to?Never12/11/2022re you , , , , never , or living with a partner?Veyorwy6412/11/2022 AUDIT-CAnswerDate RecordedQ1: How often do you have [...] food, housing, medical care, and heating?Somewhat hard12/11/2022 [facility] of Occupational Health - Occupational Stress Questionnaire AnswerDate RecordedDo you feel stress - tense, restless, nervous, or anxious, or unable to sleep at night because yourmind is troubled all the time - these days? Only a lkddjb2012/11/2022Exercise Vital SignAnswerDate RecordedOn average, how many days [...] and Gender Information ValueDate RecordedSex Assigned at WvhjbHkcnhz44/25/2023 10:10 AM EDTLegal Sex Rqyfaw3505/30/2022 6:51 PM EDTGender TnpdfcmmVqgrmy55/25/2023 10:10 AM EDTSexual OrientationNot on file Last Filed Vital Signs Vital SignReadingTime TakenCommentsBlood Omextjvi320/80103/29/2024 2:05 PM EST Zecqo474702/19/2024 3:26 PM OEDQfbvfqgkqut87.4 ??C (97.5 ??F)05/03/2023 11:22 AM ESTRespiratory Rate--Oxygen Pcysuapris02%02/19/2024 3:26 PM ESTInhaled Oxygen Concentration--Hlosgd04.8 kg (176 lb)01/27/2025 2:05 PM TYLTymyvc924.6 cm (5' 4 )02/26/2024 3:41 PM ESTBody Mass Index30. 3:41 PM EST Plan of Treatment DateTypeDepartmentCare Team (Latest Contact Info)Fdomkhwdybw19/19/2025 1:20 PM ESTRoutine [facility] [address] [place] [phone] Sintia Thomas, [address] [place], [place] [phone] Health MaintenanceDue DateLast DoneCommentsPneumococcal Vaccine: Pediatrics (0 to 5 Years) and At-Risk Patients (6 to 64 Years) (1 of 2 - PCV)06/09/2018 03/26/2000COVID-19 Vaccine (1 - season)2024Influenza Vaccine (#1) 2025Postponed from 11/16/2024 (Patient Refused) Procedures Procedure NamePriorityDate/TimeAssociated DiagnosisCommentsPOCT URINALYSIS FOHFNDTKMbnkbgn74/12/2025 2:14 PM EST 36 weeks gestation of ([facility]) Third trimester ([facility]) US OB BPP W NON-XQQDEW1501/23/2025 9:25 AM EST ALL THYROID STIM JYZSORNPsfhsjt11/08/2025 8:09 AM EST US OB BPP W NON-YGNXQA0901/20/2025 5:10 PM EST POCT URINALYSIS WTRTLWGBPgdxejj18/05/2025 2:07 PM EST 35 weeks gestation of ([facility]) US OB BPP W NON-PINPPU4901/11/2025 9:15 PM EDT POCT URINALYSIS CKNDVPHOUgzfmrx94/21/2025 1:04 PM EDT 33 weeks gestation of ([facility]) US OB BPP W NON-EJLNYP4401/02/2025 3:02 PM EDT US OB EABSUU2412/26/2024 11:31 AM EDT US OB BPP W NON-UQZYQY7512/26/2024 11:19 AM EDT ALL THYROID STIM YBLJOFQJeqwtzr21/11/2025 8:13 AM EDT POCT URINALYSIS WHIBNNZJFajixcd87/08/2025 2:01 PM EDT 31 weeks gestation of ([facility]) POCT URINALYSIS HIERMZCNUkphmmj45/24/2025 2:14 PM EDT Third trimester ([facility]) POCT URINALYSIS WGGQBXKVTfjljda92/10/2025 3:33 PM EDT Second trimester ([facility]) CA ECHO DOPPLER CEODNJGY46/09/2025 4:39 PM EDT ECG 12-LEAD11/12/2024 12:06 PM EDT ALL THYROID STIM JUSDYLHGknksar28/19/2025 4:00 PM EDT GLUCOSE 1 WWAHWxtqapz39/19/2025 4:00 PM EDT ALL CBC WITH AUTO DAUFDsfatqa96/19/2025 4:00 PM EDT RECURRENT VAGINITIS (HTRX)Qltosnh1510/28/2024 4:48 PM EDT POCT URINALYSIS WFZDBRRJCvekxda39/13/2025 2:43 PM EDT Second trimester ([facility]) IGP,APTIMA HPV,AGE QQAETyroabc31/13/2025 2:25 PM EDT PAP NSXKTHnnxvcl23/13/2025 12:00 AM EDTfrom Last 3 Months Results [...] Location / LateralityCollection Method / VolumeCollection TimeReceived FugbCyvgz75/12/2025 2:14 PM EST Narrative Authorizing ProviderResult TypeResult StatusCorey William DOPOINT OF CARE TEST ENTER/EDIT ORDERABLESFinal Result * US OB BPP W NON-STRESS (01/23/2025 9:25 AM EST) Only the most recent of5 resultswithin the time period is included. Anatomical RegionLateralityModalityOtherSpecimen (Source)Anatomical Location / LateralityCollection Method / VolumeCollection TimeReceived Time01/23/2025 9:25 AM EST Narrative 01/23/2025 9:28 AM EST [facility] ?[address] ? [place] [address] ? Ultrasound Report ? Signed ? Patient: ALETA CASTRO ?MR#: [id number] ?? : 2000 ?Acct:[id number] ?? Age/Sex: 24 / F ?ADM Date: 01/23/25 ?? Loc: US ? Attending Dr: Sintia Thomas D.O. ? Ordering Physician: Sintia Thomas D.O. ?? Date of Service: 01/23/25 ?? Procedure(s): US OB BPP w non-stress ?? Accession Number(s): [id number] ? cc: Sintia Thomas D.O.; DANNY PAYNE ? [facility] ? [address] ? [place] [address] ? Patient Name: ?? ALETA CASTRO ? MRN: [id number] ? date: 2000 ?Sex: F ?? Assigned Patient Location: [facility] ?? Current Patient Location: [facility] ?? Accession/Order Number: [id number] ?? Exam Date: 01/23/2025 ??08:41 ?Report Date: [...] Dictation Location: RADIO-PC-17 ? Electronically authenticated by: [id number] ??Y ?? Date: 01/23/2025 ??09:25 ? Dictated By: ?Emmanuel Dalton M.D. ? Signed By: ?01/23/25927 ? DD/ 0925 ? TD/TT: ? Test Rack Operator: Procedure Note Radiology, Radiologist, MD - 01/23/2025 [place] [address] Ultrasound Report Signed Patient: ALETA CASTRO#: [id number] : 2000Acct:[id number] Age/Sex: 24 / FADM Date: 01/23/25 Loc: US Attending Dr: Sintia Thomas D.O. Ordering Physician: Sintia Thomas D.O. Date of Service: 01/23/25 Procedure(s): US OB BPP w non-stress Accession Number(s): [id number] cc: Sintia Thomas D.O.; DANNY PAYNE [address] [address] Patient Name: ALETA CASTRO MRN: [id number] date: 2000 Sex: F Assigned Patient Location: [facility] Current Patient Location: [facility] Accession/Order Number: [id number] Exam Date: 01/23/2025 08:41 Report Date: 01/23/2025 [...] Dalton M.D. 01/23/2025 9:25 AM Dictation Location: [place] [address] Electronically authenticated by: [id number] Y Date: 9:25 Dictated By: Emmanuel Dalton M.D. Signed By:01/23/25927 DD/ 4 TD/TT: Test Rack Operator: Authorizing ProviderResult TypeResult StatusCorey William DOCLINISYNC IMAGINGFinal [...] EDT Narrative 12/26/2024 11:33 AM EDT [facility] ?[address] ? [place] [address] ? Ultrasound Report ? Signed ? Patient: RAKEL,ALETA N ?MR#: [id number] ?? : 2000 ?Acct:[id number] ?? Age/Sex: 24 / F ?ADM Date: 12/26/24 ?? Loc: US ? Attending Dr: Sintia Thomas D.O. ? Ordering Physician: Sintia Thomas D.O. ?? Date of Service: 12/26/24 ?? Procedure(s): US OB growth ?? Accession Number(s): [id number] ? cc: Sintia Thomas D.O.; DANNY PAYNE ? [facility] ? [address] [facility] ? [place] [address] ? Patient Name: ?? ALETA CASTRO ? MRN: [facility]:[id number] ? date: 2000 ?Sex: F ?? Assigned Patient Location: ?? Current Patient Location: ? Accession/Order Number: [id number] ?? Exam Date: 12/26/2024 ??09:00 ?Report Date: [...] 52 bpm. ? motion documented by the economics analyst.. ? Estimated weight 2093 g 71.4%. ? [...] Dictation Location: RADIO-PC-29 ? Electronically authenticated by: [id number] ??Y ?? Date: 12/26/2024 ??11:31 ? Dictated By: ?Deshaun Aguilar M.D. ? Signed By: ?12/26/24 1133 ? DD/ 30 ? TD/TT: ? Test Rack Operator: Procedure Note Radiology, Radiologist, - 12/26/2024 [place] [address] Ultrasound Report Signed Patient: ALETA CASTRO NMR#: [id number] : 2000Acct:[id number] Age/Sex: 24 / FADM Date: 12/26/24 Loc: US Attending Dr: Sintia Thomas D.O. Ordering Physician: Sintia Thomas D.O. Date of Service: 12/26/24 Procedure(s): US OB growth Accession Number(s): [id number] cc: Sintia Thomas D.O.; DANNY PAYNE [facility] [place] [address] Patient Name: ALETA CASTRO MRN: [id number] date: 2000 Sex: F Assigned Patient Location: US Current Patient Location: Accession/Order Number: [id number] Exam Date: 12/26/2024 09:00 Report Date: 12/26/2024 11:31 At the request of: SINTIA THOMAS DO Procedure: US OB growth Obstetric ultrasound for growth INDICATION: Gabby's disease FINDINGS: Single live anterior cephalic presentationlongitudinal lie. Amniotic fluid index 12.4 cm between the gestational age fifth jpz67hd percentile. Largest pocket of fluid 5.1 cm. heart rate 1 52 bpm. motion documented by the economics analyst.. Estimated weight 2093 g 71.4%. Gestation age 32 weeks and 0 days. Biparietal diameter 7.93 m. Head circumference 30.7 cm. Otherwise the 10.6 cm. Abdominal circumference 28.9 cm. Femur length 6.4 cm. US/US OB growth IMPRESSION: Single live intrauterine of approximately 30 weeks Impression dictated by: Deshaun Aguilar M.D. 12/26/2024 11:31 AM Dictation Location: [facility]-29 Electronically authenticated by: [id number] Y Date: 1:31 Dictated By: Deshaun Aguilar M.D. Signed By:12/26/24 1133 DD/ 1131 TD/TT: Test Rack Operator: Authorizing ProviderResult TypeResult StatusGeneric External Data Provider CLINISYNC IMAGINGFinal Result * CA ECHO DOPPLER COMPLETE (11/24/2024 4:39 PM EDT)Anatomical RegionLaterality ModalityOtherSpecimen (Source)Anatomical Location / LateralityCollection Method / VolumeCollection TimeReceived Time11/24/2024 4:39 PM EDT Narrative 11/24/2024 4:40 PM EDT [facility] ?[address] ? [place] [address] ? Cardiology Report ? Signed ? Patient: ALETA CASTRO ?MR#: [id number] ?? : 2000 ?Acct:[id number] ?? Age/Sex: 24 / F ?ADM Date: 11/12/24 ?? Loc: CARD ? Attending Dr: Jessica Steen ? Ordering Physician: Jessica Steen ?? Date of Service: 11/12/24 ?? Procedure(s): CA echo doppler complete ?? Accession Number(s): [id number] ? cc: Jessica Steen; DANNY PAYNE ? Patient Name: ? [facility] ? MR#: [id number] ? : 2000 ? Exam Date: 11/12/2024 [...] 1640 ? DD/ 1639 ? TD/TT: ? Test Rack Operator: Procedure Note Radiology, Radiologist, MD - 11/24/2024 [place] [address] Cardiology Report Signed Patient: ALETA CASTRO NMR#: [id number] : 2000Acct:[id number] Age/Sex: Date: 11/12/24 Loc: CARD Attending Dr: Jessica Steen Ordering Physician: Jessica Steen Date of Service: 11/12/24 Procedure(s): CA echo doppler complete Accession Number(s): [id number] cc: Jessica Steen; DANNY PAYNE Patient Name: ALETA CASTRO MR#: [id number] : 2000 Exam Date: 11/12/2024 Ordering Doctor: JESSICA STEEN [facility] ECHOCARDIOGRAM REPORT PROCEDURE: CA ECHO DOPPLER [...] M.D. Signed By:11/24/24 1640 DD/ 1639 TD/TT: Test Rack Operator: Authorizing ProviderResult TypeResult StatusGeneric External Data Provider CLINISYNC IMAGINGFinal Result * ECG 12-LEAD (11/12/2024 12:06 PM EDT)Anatomical RegionLateralityModalityOther Specimen (Source)Anatomical Location / LateralityCollection Method / Volume Collection TimeReceived Time11/12/2024 12:06 PM EDT Narrative 11/13/2024 1:34 PM EDT [facility] ?[address] ? [place] [address] ? Electrocardiograph Report ? Signed ? Patient: RAKELALETA N ?MR#: [id number] ?? : 2000 ?Acct:[id number] ?? Age/Sex: 24 / F ?ADM Date: 11/12/ ?? Loc: CARD ? Attending Dr: Jessica Steen ? Ordering Physician: Jessica Steen ?? Date of Service: 11/12/24 ?? Procedure(s): ECG 12 lead ?? Accession Number(s): [id number] ? cc: ?[facility] ? Test Date: ?2024-11-12 ?? Pat Name: ? SUMMER RAKEL ?Department: ? Room: ? - ?? Gender: ? Female ? 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 : ?2000 ? Requested By: JESSICA STEEN ?? Order Number: [id number] ?Reading MD: ?? Samar Samantha ? Measurements ?? Intervals ?[place] ? Rate: ? 79 ? P: ?42 ?? MD: ? 158 ?QRS: ?81 ?? QRSD: ? 90 ? T: ?41 ?? QT: ? 353 ? QTc: ?405 ? Interpretive Statements ?? SINUS RHYTHM ?? Normal EKG ?? No previous ECG available for comparison ?? Electronically Signed On 11-13-2024 13:34:21 EDT by Bibi Singh ? Dictated By: ?Bibi Singh M.D. ? Signed By: ?08/29/25 1334 ?08/29/25 1334 ? DD/ 1206 ? TD/TT: ? 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 Signed By:11/13/24 1334 11/13/24 1334 DD/ 1206 TD/TT: Test Rack Operator: Authorizing ProviderResult TypeResult StatusGeneric External Data Provider CLINISYNC IMAGINGFinal Result * GLUCOSE 1 HOUR (11/03/2024 4:00 PM EDT)ComponentValueRef RangeTest Method Analysis TimePerformed AtPathologist SignatureGLUCOSE 1 TQPO893<130 mg/dLTBH Specimen (Source)Anatomical Location / LateralityCollection Method / Volume Collection TimeReceived Time11/03/2024 4:00 PM EDT11/03/2024 4:01 PM EDT Narrative CLINISYNC - 11/03/2024 6:33 PM EDT Authorizing ProviderResult TypeResult StatusJessica Steen [facility] BLOOD ORDERABLESFinal ResultPerforming OrganizationAddressCity/State/ZIP CodePhone Number [facility] * (ABNORMAL) ALL CBC WITH AUTO DIFF (11/03/2024 4:00 PM EDT)ComponentValueRef RangeTest MethodAnalysis TimePerformed AtPathologist SignatureTBH WBC6.64.0 - 11.0 10 3/uLTBHTBH RBC3.34(L)4.20 - 5.40 10 6/uLTBHTBH HGB10.8(L)12.0 - 16.0 g/dLTBHTBH HCT31.2(L)36.0 - 48.0 %TBHTBH MCV93.481.0 - 99.0 fLTBHTBH MCH32.3 26.7 - 34.0 pgTBHTBH MCHC34.629.9 - 35.2 g/dLTBHTBH RDW12.711.0 - 15.0 %TBHTBH AWK333440 - 450 10 3/uLTBHTBH MPV9.79.5 - 13.5 [...] PM EDT)ComponentValueRef RangeTest MethodAnalysis TimePerformed AtPathologist SignatureATOPOBIUM GGSPBXX438.961 - 24.689 ppm10/30/2024 7:27 AM EDTHealthTrackRx at LabPortATOPOBIUM VAGINAENot Ixjqvbmu47.961 - 24.689 ppm10/30/2024 7:27 AM EDTHealthTrackRx at LabPortBVAB 2,3 (BACTERIAL VAGINOSIS ASSOCIATED BACTERIA 2, 3); MOBILUNCUS ISP320.961 - 24.689 ppm10/30/2024 7:27 AM EDTHealthTrackRx at LabPortBVAB 2,3 (BACTERIAL VAGINOSIS ASSOCIATED BACTERIA 2, 3); MOBILUNCUS SPPNot Jedkaitr47.961 - 24.689 ppm10/30/2024 7:27 AM EDTHealthTrackRx at LabPortCANDIDA ALBICANS, PARAPSILOSIS, MXKHVZOQQF607.000 - 30.347 ppm10/30/2024 7:27 AM EDT [facility] at LabPortCANDIDA ALBICANS, PARAPSILOSIS, TROPICALISNot Detected 23.000 - 30.347 ppm10/30/2024 7:27 AM EDTHealthTrackRx at LabPortCANDIDA KFDMEJDR288.000 - 31.618 ppm10/30/2024 7:27 AM EDTHealthTrackRx at LabPort RICKEY GLABRATANot Apgsuiey38.000 - 31.618 ppm10/30/2024 7:27 AM EDT [facility] at LabPortCANDIDA YFYPKD937.000 - 30.873 ppm10/30/2024 7:27 AM EDTHealthTrackRx at LabPortCANDIDA KRUSEINot Zvlhhcns72.000 - 30.873 ppm 10/30/2024 7:27 AM EDTHealthTrackRx at LabPortCHLAMYDIA IZUUNDORNHU716.000 - 31.586 ppm10/30/2024 7:27 AM EDTHealthTrackRx at LabPortCHLAMYDIA TRACHOMATIS Not Mvlvspnt82.000 - 31.586 ppm10/30/2024 7:27 AM EDTHealthTrackRx at LabPort GARDNERELLA PWIJHUZXJ556.961 - 24.689 ppm10/30/2024 7:27 AM EDTHealthTrackRx at LabSt. Mary Medical CenterGARDNERELLA VAGINALISNot Rifcmvge05.961 - 24.689 ppm10/30/2024 7:27 AM EDTHealthTrackRx at LabPortMEGASPHAERA (TYPES 1, 2)019.961 - 24.689 ppm 10/30/2024 7:27 AM EDTHealthTrackRx at LabPortMEGASPHAERA (TYPES 1, 2)Not Nnzdchix04.961 - 24.689 ppm10/30/2024 7:27 AM EDTHealthTrackRx at LabPort NEISSERIA BXIEGRISNHO497.000 - 32.587 ppm10/30/2024 7:27 AM EDTHealthTrackRx at LabSt. Mary Medical CenterNEISSERIA GONORRHOEAENot Nonqqszi34.000 - 32.587 ppm10/30/2024 7:27 AM EDTHealthTrackRx at LabPortTRICHOMONAS BWDNONCVC372.000 - 31.995 ppm 10/30/2024 7:27 AM EDTHealthTrackRx at LabPortTRICHOMONAS VAGINALISNot Ikuifffs00.000 - 31.995 ppm10/30/2024 7:27 AM EDTHealthTrackRx at LabPort MYCOPLASMA NCTUGMPGJE093.961 - 24.689 ppm10/30/2024 7:27 AM EDTHealthTrackRx at LabPortMYCOPLASMA GENITALIUMNot Fdmdrhol87.961 - 24.689 ppm10/30/2024 7:27 AM EDTHealthTrackRx at LabPortSpecimen (Source)Anatomical Location / LateralityCollection Method / VolumeCollection TimeReceived TimeTissue 10/28/2024 4:48 PM EDT10/30/2024 2:18 AM EDT Narrative Authorizing ProviderResult TypeResult StatusJessica Conraderly NPLAB BLOOD ORDERABLESFinal ResultPerforming OrganizationAddressCity/State/ZIP CodePhone Number [facility] LabPort [address] [facility] [address] [place] [address] * IGP,APTIMA HPV,AGE GDLN (10/28/2024 2:25 PM [...] at: 01 =G ?[facility] ?? [address] [place] ??[phone] ?? Ludy Hector MD, IGP, RFX APTIMA HPV ASCUNote.TBHComment: ?? TESTS ? RESULT ??FLAG ??UNITS ?REF RANGE ??LAB DIAGNOSIS: ?02 ?? NEGATIVE FOR INTRAEPITHELIAL LESION OR MALIGNANCY. ?? THIS SPECIMEN WAS RESCREENED PART OF OUR STUDENT ACCOUNTS COORDINATOR PROGRAM. Specimen adequacy: ?02 ?? Satisfactory for evaluation. No endocervical component is identified. Performed by: ? 02 ?? Brionna Mello Detective ([facility]) QC reviewed by: ? 02 ?? Polina Simons, Detective . ? 02 Note: ? Note ?02 [...] at: 02 WB ?[facility] ?? [address] [place], [place] ??[address] ?? Ludy Hector MD, Performed at: ??=G - [facility] [place] [address] [place], [place] ??[id number] Compliance Reviewer: Ludy Hector MD, Phone: ??[phone] Performed at: ??WB - [facility] [address] [place] ??[id number] Compliance Reviewer: Ludy Hector MD, Phone: ??[phone] Specimen (Source)Anatomical Location / LateralityCollection Method / [...] Teams Team MemberRelationshipSpecialtyStart DateEnd Danny Payne MD [address] [place] [address] PCP - GeneralFamily Medicine07/24/22 Danny Payne MD [address] [address] KAT Trinh [facility]06/16/20
--- OUTSIDE RECORDS SUMMARY | 2025-01-27 19:58 | XMS_ITS | Encounter Summary ---
Author Organization [facility] Address [address] [place] [address] Care Team Providers Care Multicultural Services Librarian Name Role Phone Danny Schuler MD Primary Care Provider [phone] Danny Schuler MD Unavailable [phone] Encounter Details DateTypeDepartmentCare Team (Latest Contact Info)Cefwhcqaryj10/07/2025Telephone [facility] [address] [facility] [place] [phone] Doc Thomas DO [address] [facility] [address] Brandyn [place], [facility] Social History Tobacco UseTypesPacks/DayYears UsedDateSmoking Tobacco: Some [...] relatives?Once a week12/11/2022How often do you attend denominational or mormonism services?More than 4 times per year12/11/2022o you belong to any clubs or organizations such as denominational groups, unions, fraternal or athletic groups, or [...] and heating?Somewhat hard 12/11/2022[facility] [place] [facility] - Occupational Stress QuestionnaireAnswerDate RecordedDo you feel stress - tense, restless, nervous, or anxious, or unable to sleep at night because yourmind is troubled all the time - these days?Only a mscatl0712/11/2022Exercise Vital SignAnswerDate Recorded On average, how many [...] degree you have received?11th grade12/10/2022Estimated Date of TpjprbfnVzfanolkIni48/06/2025Based on last menstrual period of 05/16/2024Sex and Gender InformationValueDate RecordedSex Assigned at VhdgwErxaih08/25/2023 10:10 AM EDTLegal NhyWiases98/15/2023 6:51 PM EDTGender PdknezuxCnakkq70/25/2023 10:10 AM EDTSexual OrientationNot on filedocumented as [...] Patient states that she is also having [place] thayer and these have been ongoing 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 Patient advised if questions after our business hours reach out the [facility] and they are able to guide her also. PVU documented in this encounter Plan of Treatment DateTypeDepartmentCare Team (Latest Contact Info)Oxphqddxtno44/19/2025 1:20 PM ESTRoutine [facility] [address] [facility] [place] [phone] Doc Thomas DO [address] [facility] [place] [address] documented as of this encounter Visit Diagnoses Not on filedocumented in this encounter Care Teams Team MemberRelationshipSpecialtyStart DateEnd Date Danny Schuler MD [address] [facility] [address] [place] [address] PCP - GeneralFamily Medicine07/24/22 Danny Schuler MD [address] [place] [address] PCP - Ziggy Richard06/16/20documented as of this encounter
--- OUTSIDE RECORDS SUMMARY | 2025-01-27 19:58 | XMS_ITS | Encounter Summary ---
Author Organization [facility] Address [address] [place] [address] Care Team Providers Care Foundry Hand Name Role Phone Danny Schuler MD Primary Care Provider [phone] Danny Schuler MD Unavailable [phone] Encounter Details DateTypeDepartmentCare Team (Latest Contact Info)Wgxgzynelzy86/08/2025Clinisync Result Encounter [facility] Unsolicited Doc Thomas, DO [address] [facility] [place] [address] Social History Tobacco UseTypesPacks/DayYears UsedDateSmoking Tobacco: Some [...] relatives?Once a week12/11/2022How often do you attend baptism or yarsanism services?More than 4 times per year12/11/2022o you belong to any clubs or organizations such as baptism groups, unions, fraPreggers or athletic groups, or school groups?No12/11/2022How often [...] food, housing, medical care, and heating?Somewhat hard 12/11/2022[facility] [place] of Occup[facility] - Occupational Stress QuestionnaireAnswerDate RecordedDo you feel stress - tense, restless, nervous, or anxious, or unable to sleep at night because yourmind is troubled all the time - these days?Only a bsteuz8112/11/2022Exercise Vital SignAnswerDate Recorded On average, how many [...] degree you have received?11th grade12/10/2022Estimated Date of OseevpbyJzcxunodUzc41/06/2025Based on last menstrual period of 05/16/2024Sex and Gender InformationValueDate RecordedSex Assigned at EqavrLhonzj38/25/2023 10:10 AM EDTLegal GkvPtcbvm68/15/2023 6:51 PM EDTGender QdtyjaauQceiku39/25/2023 10:10 AM EDTSexual OrientationNot on filedocumented as of this encounter Plan of Treatment DateTypeDepartmentCare Team (Latest Contact Info)Kywizyezhpl12/19/2025 1:20 PM ESTRoutine [facility] [address] [facility] [place] [phone] Doc Thomas DO [address] [facility] [address] [place], [place] [phone] documented as of this encounter Procedures Procedure NamePriorityDate/TimeAssociated DiagnosisCommentsALL THYROID STIM JQRURLEShifkef42/08/2025 8:09 AM EST documented in this encounter [...] MemberRelationshipSpecialtyStart DateEnd Date Danny Schuler MD [address] [facility] [address] [place] [address] PCP - GeneralFamily Medicine07/24/22 Danny Schuler MD [address] [place] [address] PCP - Ziggy Richard06/16/20documented as of this encounter
== END 2025-01-27 19:54 | disposition home or self-care (01) ==
LOC: LAB 19:53
PROVIDERS: PCP Family Medicine; Visit Provider Obstetrics & Gynecology
DX: Z34.93 Encounter for supervision of normal pregnancy, unspecified, third trimester (principal)
CPT/HCPCS: 87081

== ENCOUNTER 2025-01-30 07:02 | Outpatient (OUT) | payer BC, SELFPAY ==
--- OUTSIDE RECORDS SUMMARY | 2025-01-20 13:50 | XMS_ITS | Encounter Summary ---
Author Organization [facility] Address [address] [place] [address] Care Team Providers Care Ecological Economist Name Role Phone Danny Schuler MD Primary Care Provider [phone] Danny Schuler MD Unavailable [phone] Reason for Visit * ReasonCommentsRoutine Visit Encounter Details DateTypeDepartmentCare Team (Latest Contact Info)Zfafjenbdrn97/05/2025 1:50 PM ESTRoutine [facility] [address] [place] [phone] Pretty Chaidez PA [address] [place], [place] [id number] Third trimester ([facility]); 35 weeks gestation of ([facility]) Social History Tobacco UseTypesPacks/DayYears UsedDateSmoking Tobacco: Some [...] week12/11/2022How often do you attend alevism or jewish services?More than 4 times per year12/11/2022o you belong to any clubs or organizations such as alevism groups, unions, fraDigby or athletic groups, or school groups?No12/11/2022How often [...] food, housing, medical care, and heating?Somewhat hard 12/11/2022[facility] [place] of Occupational Health - Occupational Stress QuestionnaireAnswerDate RecordedDo you feel stress - tense, restless, nervous, or anxious, or unable to sleep at night because yourmind is troubled all the time - these days?Only a dtaolz0412/11/2022Exercise Vital SignAnswerDate Recorded On average, how many [...] degree you have received?11th grade12/10/2022Estimated Date of PkeeommrUqxetmtpHrp89/06/2025Based on last menstrual period of 05/16/2024Sex and Gender InformationValueDate RecordedSex Assigned at MrwzgLhclio64/25/2023 10:10 AM EDTLegal RowTrdeec72/15/2023 6:51 PM EDTGender BytsisfuDesbxo25/25/2023 10:10 AM EDTSexual OrientationNot on filedocumented as of this encounter Last Filed Vital Signs Vital SignReadingTime TakenCommentsBlood Zjvcgfdc66/6001/20/2025 2:02 PM EST Pulse--Temperature--Respiratory Rate--Oxygen Saturation--Inhaled Oxygen Concentration--Tnmwti58.3 kg (174 lb 12.8 oz)01/20/2025 2:02 PM ESTHeight--Body Mass Pohqy0832/11/2024 3:41 PM ESTdocumented in this encounter Progress [...] Left 2019 OVARIAN CYST REMOVAL Left 05/20/2020 [facility] William VAGINAL DELIVERY REVIEW OF SYSTEMS [...] was 05/16/2024. Assessment/Plan ICD-10-CM 1. Third trimester ([facility]) Z34.93 2. 35 weeks gestation of ([facility]) Z3A.35 POCT urinalysis dipstick manually resulted Return [...] Plan of Treatment DateTypeDepartmentCare Team (Latest Contact Info)Oegmrsnvmrb19/19/2025 1:20 PM ESTRoutine [facility] [address] [facility] [address] WilliamDoc leiva, [address] [place] [address] documented as of this encounter Procedures Procedure NamePriorityDate/TimeAssociated DiagnosisCommentsPOCT URINALYSIS SGTAYIAKQjrzieq95/05/2025 2:07 PM EST 35 weeks gestation of ([facility]) documented in this encounter Results * (ABNORMAL) [...] Narrative Authorizing ProviderResult TypeResult StatusPretty [facility] TEST ENTER/EDIT ORDERABLESFinal Result documented in this encounter Visit Diagnoses Diagnosis Third trimester ([facility]) state, incidental 35 weeks gestation of ([facility]) documented in this encounter Care Teams Team MemberRelationshipSpecialtyStart DateEnd Date Danny Schuler MD [address] [address] PCP - GeneralFamily Medicine07/24/22 Danny Schuler MD [address] [address] PCP - Ziggy Richard06/16/20documented as of this encounter
--- OUTSIDE RECORDS SUMMARY | 2025-01-27 13:40 | XMS_ITS | Encounter Summary ---
Author Organization [facility] Address [address] [place] [address] Care Team Providers Care Single Spindle Screw Machine Operator Name Role Phone Danny Schuler MD Primary Care Provider [phone] Danny Schuler MD Unavailable [phone] Reason for Visit * ReasonCommentsRoutine Visit Encounter Details DateTypeDepartmentCare Team (Latest Contact Info)Ffpiikicfav84/12/2025 1:40 PM ESTRoutine [facility] [address] [place] [phone] Doc Thomas DO [address] [facility] [place] [address] 36 weeks gestation of ([facility]); Third trimester ([facility]); Gabby's disease; Low hemoglobin; Heart palpitations; Pelvic pressure in ([facility]) Social History Tobacco UseTypesPacks/DayYears UsedDateSmoking Tobacco: [...] relatives?Once a week12/11/2022How often do you attend hindu or hoahaoism services?More than 4 times per year12/11/2022o you belong to any clubs or organizations such as hindu groups, unions, fraternal or athletic groups, or [...] and heating?Somewhat hard 12/11/2022[facility] [place] of Occupational Health - Occupational Stress QuestionnaireAnswerDate RecordedDo you feel stress - tense, restless, nervous, or anxious, or unable to sleep at night because yourmind is troubled all the time - these days?Only a spzycx0212/11/2022Exercise Vital SignAnswerDate Recorded On average, how many [...] steady place to sleep or slept in [place] (including now)?No12/11/2022EducationAnswer Date RecordedWhat is the highest level of school you have completed or the highest degree you have received?11th grade12/10/2022Estimated Date of CujjksguFtzxxreyNqy31/06/2025Based on last menstrual period of 05/16/2024Sex and Gender InformationValueDate RecordedSex Assigned at PvtguQsnibb95/25/2023 10:10 AM EDTLegal IeuYonuog68/15/2023 6:51 PM EDTGender IdoxcpwgVeyhgj85/25/2023 10:10 AM EDTSexual OrientationNot on filedocumented as of this encounter Last Filed Vital Signs Vital SignReadingTime TakenCommentsBlood Xwiblipu343/80103/29/2024 2:05 PM EST Pulse--Temperature--Respiratory Rate--Oxygen Saturation--Inhaled Oxygen Concentration--Wyvmho42.8 kg (176 lb)01/27/2025 2:05 PM ESTHeight--Body Mass Index30. 3:41 PM ESTdocumented in this encounter Progress Notes * Lissette Anton, SKIN PEELING MACHINE OPERATOR - 01/27/2025 1:40 PM EST Reason for [...] Left 2019 OVARIAN CYST REMOVAL Left 05/20/2020 [facility] William VAGINAL DELIVERY REVIEW OF SYSTEMS [...] nursing note reviewed. Exam conducted with a efficiency miner blasting present. Vitals: Estimated body mass index is 30.21 kg/m?? as calculated from the following: Height as of 24: 5' 4 . Weight as of this encounter: 176 lb. BP: 120/80 Patient's last menstrual period was 05/16/2024. Assessment/Plan ICD-10-CM 1. 36 weeks gestation of ([facility]) Z3A.36 POCT urinalysis dipstick manually resulted 2. 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 Low hemoglobin D64.9 5. Heart palpitations R00.2 6. Pelvic pressure in ([facility]) O26.899 R10.20 Assessment/Plan Patient is doing well [...] Plan of Treatment DateTypeDepartmentCare Team (Latest Contact Info)Cmxakuzlxie56/19/2025 1:20 PM ESTRoutine [facility] [address] [place] [address] Doc Thomas DO [address] [facility] [facility] [address] [place], [place] [address] NameTypePriorityAssociated DiagnosesOrder ScheduleCULTURE, GROUP B STREP WITH SUSCEPTIBLITYLabRoutine Third trimester ([facility]) Expected: 01/27/2025, Expires: 01/27/2026documented as of this encounter Procedures Procedure NamePriorityDate/TimeAssociated DiagnosisCommentsPOCT URINALYSIS YCQSRRHRHfquykj48/12/2025 2:14 PM EST 36 weeks gestation of ([facility]) Third trimester ([facility]) documented in this encounter Results * [...] Visit Diagnoses Diagnosis 36 weeks gestation of ([facility]) Third trimester ([facility]) state, incidental Gabby's disease Chronic lymphocytic thyroiditis Low hemoglobin Heart palpitations Palpitations Pelvic pressure in ([facility]) Other specified complication, antepartum documented in this encounter Care Teams Team MemberRelationshipSpecialtyStart DateEnd Date Danny Schuler MD [address] [place] [address] PCP - GeneralFamily Medicine07/24/22 Danny Schuler MD [address] [place] [address] PCP - Ziggy Richard06/16/20documented as of this encounter
--- OUTSIDE RECORDS SUMMARY | 2025-01-30 07:05 | XMS_ITS | CCD ---
Author Organization [facility] CliniSyky Care Team Providers Care Duplicating Machine Servicer Name Role Phone BECERRIL, DAVID P Unavailable Unavailable BECERRIL, DAVDI P Unavailable Unavailable BECERRIL, DAVID P Unavailable Unavailable BECERRIL, DAVID P Unavailable Unavailable BECERRIL, DAVID P Unavailable Unavailable BLANCA PABLO AM Unavailable Unavailable BLANCA PABLO AM Unavailable Unavailable SELF, REFERRED Unavailable Unavailable ROSALIE PAYNE Unavailable Unavailable Unavailable Primary Care Provider UnavailRosalie Muhammad MD Primary Care Provider DAVID DOMINGUEZ Attending Unavailable RATIS YODER Attending Unavailable Sandeep Ramirez Unavailable Carlie [...] Care Provider DO Marcelle Espinosa Attending Provider [phone] Marcelle Espinosa Attending Unavailable Marcelle Espinosa Admitting [...] Allergen(s)Allergy TypeDate of OnsetReaction(s) FacilityLatex (1 source)LatexSubstance Bhuwyjz36-37-2423VazyBgdyw HealthMacrolides (antibiotic) (1 source)AzithromycinDrug Ouzcwix16-90-9951HtfudMniay Health (20 sources)Azithromycin; Translations: [azithromycin]Drug Mamslou80-35-7901 [facility] (11 sources)Latex; Translations: [Latex]Propensity to adverse reactions to drug 98-23-9033QirjIadfk Health (1 source)AzithromycinDrug Dfonvjm03-74-5681Cwj [facility] (1 source)natural latex rubberDrug allergy (disorder)[facility] (2 sources)Banana Extract; Translations: [Banana]Drug AllergyVomiting (disorder) [facility] (20 sources)Midodrine; Translations: [midodrine]Drug Fsikdbr33-33-9312FenhtctrMet[facility] (20 sources)LatexAllergy to qyddxloff23-17-7076DoscCCDT Healthcare (1 source)AzithromycinDrug Ttknout86-94-7790BughvkprxProm[facility] (1 source)LatexDrug allergy (disorder)68-44-6336AghdmecrfPromedica [facility] Rep[facility] Medications Current Medications MedicationDrug Class(es)DatesSig (Normalized)Sig (Original)[id number] 200 actuat albuterol 0.09 mg/actuat metered dose inhaler (2 sources)beta2-Adrenergic AgonistStart: 97-01-4587mqml 2 puff(s) by inhalation four times daily as neededAlbuterol Sulfate HFA 108 (90 Base) MCG/ACT 2 puffs Inhalation 4 times a day prn Aug, ActiveStart: 61-30-5995nvlr 2 puff(s) by inhalation four times daily as neededAlbuterol Sulfate HFA 108 (90 Base) MCG/ACT 2 puffs Inhalation 4 times a day prn Aug, Not-Taking/PRN fluconazole 150 mg oral tablet (2 sources)Azole AntifungalStart: 12-09-2024 End: 99-46-5752rretddzhhfd (Diflucan) 150 MG tablet Indications: Yeast infection Take 1 tablet (150 mg) by mouth 1(one) time for 1 dose Repeat in 7 days if symptoms persist. 2 tablet 12/09/2024 12/09/2024 Activefluticasone propionate 0.05 mg/actuat metered dose nasal spray (4 sources)CorticosteroidStart: 52-08-6119stihjolqyro (Flonase) 50 MCG/ACT nasal sprayStart: 87-33-2970bfbe 1 spray(s) nasal route once dailyFluticasone Propionate 50 MCG/ACT 1 spray in each nostril Nasally Once a day for 14 15 Mar, 2023 ActiveStart: 16-95-3374jcfr 2 spray(s) nasal route once daily as needed Fluticasone Propionate 50 MCG/ACT 2 sprays Nasally Once a day for 14 day(s) Aug, Not-Taking/PRNStart: 57-79-2460rltw 2 spray(s) nasal route once daily Fluticasone Propionate 50 MCG/ACT 2 sprays Nasally Once a day for 14 day(s) Aug, Activeibuprofen 600 mg oral tablet (20 sources)Nonsteroidal Anti-inflammatory DrugStart: 01-30-5279mlln 1 tablet by mouth four times daily as needed for painibuprofen (ADVIL;MOTRIN) 600 MG tablet Take 1 tablet by mouth 4 times daily as needed for Pain 30 tablet 0 12/14/2020 Active End: 92-34-7927woblzhvby 200 MG tablet Take by mouth. 07/16/2024 Discontinued magnesium oxide 400 mg oral tablet (5 sources)Start: 07-16-2024 End: 53-70-9191yszm 1 tablet by mouth once dailymagnesium oxide (Mag-Ox) 400 MG tablet Indications: Cluster headache, not intractable, unspecified chronicity pattern Take 1 tablet (400 mg) by mouth Daily 30 tablet 6 07/16/2024 08/15/2024 Activeondansetron 4 mg oral tablet (20 sources)Serotonin-3 Receptor AntagonistStart: 76-24-2056yinx 1 tablet by mouth every six hours as needed for nausea and nausea, then take 1 tablet by mouthevery six hours as needed for nausea and nauseaondansetron (Zofran) 4 MG tablet Indications: Nausea and vomiting in ([facility]) Take 1 tablet (4 mg) by mouth every 6 (six) hours if needed for nausea or vomiting for up to 30 doses Take 1 tablet by mouth every 6 hours as needed for nausea. 30 tablet 12/23/2024 ActiveStart: 10-05-2024 End: 06-87-4754zwya 1 tablet by mouth every six hours for nauseaondansetron ODT (Zofran-ODT) 4 MG disintegrating tablet Indications: Nausea and vomiting during ([facility]) Take 1 tablet (4 mg) by mouth every 6 (six) hours if needed for nausea or vomiting 30 tablet 3 10/05/2024 11/04/2024 ActiveStart: 08-26-2024 End: 68-31-7262odrc 1 tablet by mouth every six hours for nauseaondansetron ODT (Zofran-ODT) 4 MG disintegrating tablet Indications: Nausea and vomiting during ([facility]) Take 1 tablet (4 mg) by mouth every 6 (six) hours if needed for nausea or vomiting 30 tablet 3 08/26/2024 09/30/2024 ActiveStart: 07-06-2024 End: 80-93-7035yyyq 1 tablet by mouth every six hours for nauseaondansetron ODT (Zofran-ODT) 4 MG disintegrating tablet Indications: Nausea and vomiting during Take 1 tablet (4 mg) by mouth every 6 (six) hours if needed for nausea or vomiting 30 tablet 2 07/06/2024 08/05/2024 Activepenicillin v potassium 500 mg oral tablet (1 source)Start: 03-26-9711xlxo 1 tablet by mouth every eight hoursPenicillin V Potassium 500 MG 1 tablet Orally tid for 10 day(s) 14 Apr, 2021 Active polysaccharide iron complex 391 mg oral capsule (5 sources)Start: 11-05-2024 End: 75-00-5613wheo 1 capsule by mouth once dailyiron polysaccharides (ProFe) 391.3 (180 Fe) MG capsule Indications: Low hemoglobin Take 1 capsule (391.3 mg) by mouth Daily 30 capsule 3 11/05/2024 12/05/2024 ActivetiZANidine 4 mg oral tablet (2 sources)Central alpha-2 Adrenergic AgonistStart: 01-41-9427yick 1 tablet by mouth every eight hours as needed for paintiZANidine (ZANAFLEX) 4 MG tablet Take 1 tablet by mouth every 8 hours as needed (pain and muscle tension/cramps) 10 tablet 0 12/14/2020 Active Completed/Discontinued Medications MedicationDrug Class(es)DatesSig (Normalized)Sig (Original)acetaminophen 325 mg oral tablet (1 source)Start: 09-19-2020 End: 99-12-8682cpkuhlkxdbsuv (TYLENOL) tablet 650 mgCitalopram (7 sources)Serotonin Reuptake InhibitorCitalopram Hydrobromide Not-Taking/PRN take 1 tablet by mouth once dailycitalopram (CELEXA) 20 MG tablet Take 20 mg by mouth daily 0 ActiveCitalopram Hydrobromide Activeclotrimazole 10 mg oral lozenge (3 sources)Azole AntifungalStart: 08-47-4313Ovodvaryxhms 10 MG 1 wenceslao Mouth/Throat Three times a day for 7 day(s) Apr, Not-Taking/PRN medroxyPROGESTERone (4 sources)ProgestinDepo-Provera Not-Taking/PRNDepo-Provera Activemetoclopramide 10 mg oral tablet (12 sources)Dopamine-2 Receptor AntagonistStart: 07-16-2024 End: 39-86-3808gcqgadelyuglpb (Reglan) 10 MG tablet Indications: Nausea/vomiting in [...] tablet (2 sources)Nonsteroidal Anti-inflammatory DrugStart: 05-24-2021 End: 50-19-7360gjkkfssc sodium (ANAPROX) tablet 550 mgStart: 87-98-1203bbwx 1 tablet by mouth twice daily at mealtimenaproxen (NAPROSYN) 500 MG tablet Take 1 tablet by mouth 2 times daily (with meals) 20 tablet 1 05/24/2021 Active pantoprazole 40 mg delayed release oral tablet (17 sources)Proton Pump InhibitorStart: 02-17-2024 End: 83-91-4299qkgs 1 tablet by mouth before mealtimepantoprazole (ProtoNix) 40 MG EC tablet Take 40 mg by mouth in the morning. Take before meals. 02/17/2024 09/30/2024 DiscontinuedpredniSONE 20 mg oral tablet (3 sources)Start: 35-13-0016ohcu 1 tablet by mouth every twelve hourspredniSONE 20 MG 1 tablet Orally 2 times a day for 5 day(s) Aug, Not-Taking/PRN Start: 36-10-2058wgem 1 tablet by mouth every twelve hourspredniSONE 20 MG 1 tablet Orally bid for 5 day(s) Apr, Active Problems Active Problems Problem ClassificationProblemDateDocumented DateEpisodic/ChronicAbdominal pain (11 sources)Pelvic and perineal pain; Translations: [Right lower quadrant pain] Onset: 74-00-2505ImfnhponKblhygw dysrhythmias (20 sources)Postural orthostatic tachycardia syndrome ; Translations: [Postural orthostatic tachycardia syndrome (POTS)]Onset: 159746-49-9416Uonkqqo Cardiac dysrhythmias (4 sources)Palpitations; Translations: [Palpitations]62-80-4482Zmpcpaiw Coagulation and hemorrhagic disorders (1 source)Qualitative platelet defects; 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]Onset: 96-60-1837RldnjvxCmkiiktbmh disorders (4 sources)Gastroesophageal reflux disease; Translations: [Gastro-esophageal reflux disease without esophagitis]43-36-3102LthvdrlMzuhkidc; including migraine (1 source)Cluster headache; Translations: [Cluster headache syndrome, unspecified, not intractable]70-93-6904FgliocnDqxowkcqokoyn and screening for infectious disease (4 sources)Contact with and (suspected) exposure to other viral communicable diseases; Translations: [Exposureto sexually transmissible disorder]Onset: 04-07-2021 Resolved: 29-18-3989BrhttfvrEldagju and fatigue (20 sources)Fatigue; Translations: [Chronic fatigue, unspecified]Onset: 193340-75-0918GxtirjqArmaglejz disorders (20 sources)Disorder of menstruation; Translations: [Irregular menstruation, unspecified]Onset: 388201-70-7701HeamqywLlcuzat (3 sources)Candidal stomatitis; Translations: [Mycosis]Onset: 05-11-2021 Resolved: 77-97-7176VuojayfeEckqgz and vomiting (4 sources)Nausea; Translations: [Nausea]30-98-1129JtbvbzaeJrugy bone disease and musculoskeletal deformities (20 sources)Driver Schlatter disease; 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]Onset: 437850-95-2673XljxytbRfwum circulatory disease (1 source)Postural orthostatic tachycardia hlvaxxye45-50-0725ZgwogfceWotyw complications of (1 source)Vomiting of , unspecified; Translations: [Unspecified vomiting of , unspecified as to episode of care or not applicable] 92-82-5582NgtxtvxoRweji gastrointestinal disorders (2 sources)Diarrhea; Translations: [Diarrhea, unspecified]19-88-0067Jnmhmumu Other gastrointestinal disorders (2 sources)Diarrhea, unspecified; Translations: [Diarrhea]22-06-6127Apyugatr Other gastrointestinal disorders (1 source)Dysphagia; Translations: [Dysphagia, unspecified]06-52-6813Tsaswofk Other gastrointestinal disorders (1 source)Dysphagia, unspecified; Translations: [Dysphagia, unspecified] 74-24-5075YbfmbvneEunld injuries and conditions due to external causes (1 source)Closed injury of head; Translations: [Unspecified injury of head, initial encounter]EpisodicOther injuries and conditions due to external causes (1 source)Injury of coccyx; Translations: [Unspecified injury of lower back, initial encounter]EpisodicOther injuries and conditions due to external causes (2 sources)Injury of left knee; Translations: [Unspecified injury of left lower leg, initial encounter]71-37-4406WjeupzyyUdjre nutritional; endocrine; and metabolic disorders (20 sources)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 imbalance; Translations: [Other obesity due to excess calories]Onset: 766689-33-5304OuzsrumOlkjt nutritional; endocrine; and metabolic disorders (1 source)H/O: cdwwjjroalcobq36-87-6534TxjlgeefEkefx and delivery including normal (20 sources); Translations: [Encounter for supervision of normal , unspecified, unspecified trimester]32-66-6197GfurrgxaOahoi screening for suspected conditions (not mental disorders or infectious disease) (8 sources)Encounter for screening for malignant neoplasm of cervix; Translations: [Patient encounter status]Onset: 75-25-5220WokxcittHxhaj upper respiratory infections (9 sources)Streptococcal sore throat; Translations: [Strep throat]Onset: 05-01-2021 Resolved: 91-77-5615CpksakpqGfduzkej codes; unclassified (2 sources)Gestation period, 11 weeks; Translations: [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 ]78-13-3666EypqwcdnTfpvgagj codes; unclassified (2 sources)Gestation period, 15 weeks; Translations: [15 weeks gestation of ]78-34-5901YrhyqvbjAubqgxjn codes; unclassified (2 sources)Gestation period, 19 weeks; Translations: [19 weeks gestation of ]90-28-1830MkezdqexZmluxkfv codes; unclassified (2 sources)Gestation period, 23 weeks; Translations: [23 weeks gestation of ]15-46-8939SfxvaxkoYstsnpic codes; unclassified (2 sources)Gestation period, 27 weeks; Translations: [27 weeks gestation of ]06-00-1872SmgeecnwToespaan codes; unclassified (2 sources)Gestation period, 29 weeks; Translations: [29 weeks gestation of ]91-11-4396CkjazkkxYrticpjv codes; unclassified (2 sources)Gestation period, 31 weeks; Translations: [31 weeks gestation of ]92-88-1916FllolmmcBptjuyoj codes; unclassified (2 sources)Gestation period, 33 weeks; Translations: [33 weeks gestation of ]92-09-1624LslmkgqkCnutquwr codes; unclassified (2 sources)Gestation period, 35 weeks; Translations: [35 weeks gestation of ]49-87-4260TzfiqfyxZyeqqjjfg-related disorders (20 sources)Cigarette smoker ; Translations: [Nicotine dependence, cigarettes, uncomplicated]Onset: 773445-37-1709OmaracwIquiejvqchn injury; contusion (1 source)Contusion of left knee; Translations: [Contusion of left knee, initial encounter]EpisodicSyncope (2 sources)Syncope; Translations: [Syncope]Onset: 85-61-4444QwntzaigRucrnzw disorders (20 sources)Evan thyroiditis; Translations: [Autoimmune thyroiditis]Onset: 786705-20-8275LigdyrfMifefhzoqdbf (2 sources)Unknown / UNK(Unknown)Onset: 19-19-0278Oslymjrriita (2 sources)New Patient; Translations: [New Patient]Onset: 25-88-9586Zfsqrmawhaur (2 sources)POTSOnset: 11-27-2024 Past or Other Problems Problem ClassificationProblemDateDocumented DateEpisodic/ChronicChronic obstructive pulmonary disease and bronchiectasis (1 source)Bronchitis, not specified as acute or chronicOnset: 08-21-2021 Resolved: 84-04-0936IsulbznyXzkdgnknd (5 sources)Influenza; Translations: [Influenza A]Other circulatory disease (4 sources)Orthostatic hypotension; Translations: [ORTHOSTATIC HYPOTENSION] Onset: 69-65-5151TozrmoleCzgwx circulatory disease (20 sources)Low blood pressure; Translations: [Hypotension, unspecified]Onset: 177333-36-7048RptrxeprXnlke non-traumatic joint disorders (20 sources)Pain in left knee; Translations: [Pain in joint, lower leg]Onset: 524870-70-3051OdetwznpOyvnf nutritional; endocrine; and metabolic disorders (20 sources)Body mass index 25-29 - overweight; Translations: [Overweight]Onset: 12-10-2022 Resolved: 904177-85-9763ZvyeiaspZcbuvfh cyst (20 sources)Cyst of ovary; Translations: [Unspecified ovarian cyst, unspecified side]Onset: 999286-53-7616Iodkjqkt Results Test NameValueInterpretationReference RangeFacilityALL THYROID STIM HORMONEon 22-00-0771Pqecjiiyuogisl and review of laboratory resultsAbnormalNONortheast [facility] TSH Qn0.159 m[IU]/LLowNONV HealthcareCLINISYNCNOMS HealthcareUS OB BPP W NON-STRESSon 88-76-3868QoySaint [place] [address] Ultrasound Report Signed Patient: ALETA CASTRO MR#: [id number] : 2000 Acct:[id number] Age/Sex: 24 / F ADM Date: 01/23/25 Loc: US Attending Dr: Doc Thomas D.O. Ordering Physician: Doc Thomas D.O. Date of Service: 01/23/25 Procedure(s): US OB BPP w non-stress Accession Number(s): [id number] cc: Doc Thomas D.O.; ROSALIE PAYNE [place] [phone] Patient Name: ALETA CASTRO MRN: [id number] date: 2000 Sex: F Assigned Patient Location: [facility] Current Patient Location: [facility] Accession/Order Number: [id number] Exam Date: 01/23/2025 08:41 Report Date: 01/23/2025 [...] Dalton M.D. 01/23/2025 9:25 AM Dictation Location: [place] [address] Electronically authenticated by: [id number] Y Date: 01/23/2025 09:25 Dictated By: Emmanuel Dalton M.D. Signed By: 01/23/25927 DD/ 4 TD/TT: Hydro Pneumatic Tester:NINAHRadiology, Radiologist, - 01/23/2025 [place] [address] Ultrasound Report Signed Patient: ALETA CASTRO MR#: [id number] : 2000 Acct:[id number] Age/Sex: 24 / F ADM Date: 01/23/25 Loc: US Attending Dr: Doc Thomas D.O. Ordering Physician: Doc Thomas D.O. Date of Service: 01/23/25 Procedure(s): US OB BPP w non-stress Accession Number(s): [id number] cc: Doc Thomas D.O.; ROSALIE PAYNE [place] [address] Patient Name: ALETA CASTRO MRN: [id number] date: 2000 Sex: F Assigned Patient Location: [facility] Current Patient Location: [facility] Accession/Order Number: [id number] Exam Date: 01/23/2025 08:41 Report Date: 01/23/2025 [...] Dalton M.D. 01/23/2025 9:25 AM [facility]ictation [facility] Electronically authenticated by: [id number] Y Date: 01/23/2025 09:25 Dictated By: Emmanuel Dalton M.D. Signed By: 01/23/25927 DD/ 4 TD/TT: Hydro Pneumatic Tester: KYE HealthcareRadiology Study observation (narrative)NOMS HealthcareUS OB BPP W NON-STRESSOrdered By: Radiologist Radiology on 56-80-5264ACOB [employer] Work Phone: US OB BPP W NON-STRESSon [phone] [place] [address] Ultrasound Report Signed Patient: ALETA CASTRO MR#: [id number] : 2000 Acct:[id number] Age/Sex: 24 / F ADM Date: 01/20/25 Loc: [facility] Attending Dr: Doc Thomas D.O. Ordering Physician: Doc Thomas D.O. Date of Service: 01/20/25 Procedure(s): US OB BPP w non-stress Accession Number(s): [id number] cc: Doc Thomas D.O.; ROSALIE PAYNE [place] [phone] Patient Name: ALETA CASTRO MRN: [id number] date: 2000 Sex: F Assigned Patient Location: [facility] Current Patient Location: Accession/Order Number: [id number] Exam Date: 01/20/2025 15:17 Report Date: 01/20/2025 [...] Ellington M.D. 01/20/2025 5:10 PM Dictation Location: [facility] Electronically authenticated by: [id number] Y Date: 01/20/2025 17:10 Dictated By: Loi Ellington D.O. Signed By: 01/20/251712 DD/ 09 TD/TT: Hydro Pneumatic Tester:MARTINEadiologkehinde, Radiologist, - 01/20/2025 [place] [address] Ultrasound Report Signed Patient: ALETA CASTRO MR#: [id number] : 2000 Acct:[id number] Age/Sex: 24 / F ADM Date: 01/20/25 Loc: [facility] Attending Dr: Doc Thomas D.O. Ordering Physician: Doc Thomas D.O. Date of Service: 01/20/25 Procedure(s): US OB BPP w non-stress Accession Number(s): [id number] cc: Doc Thoams D.O.; ROSALIE PAYNE [place] [address] Patient Name: ALETA CASTRO MRN: [id number] date: 2000 Sex: F Assigned Patient Location: [facility] Current Patient Location: Accession/Order Number: [id number] Exam Date: 01/20/2025 15:17 Report Date: 01/20/2025 [...] Ellington M.D. 01/20/2025 5:10 PM Dictation Location: [facility] Electronically authenticated by: [id number] Y Date: 01/20/2025 17:10 Dictated By: Loi Ellington D.O. Signed By: 01/20/251712 DD/ 09 TD/TT: Hydro Pneumatic Tester: [facility] HealthcareRadiology Study observation (narrative)NOMS HealthcareUS OB BPP W NON-STRESSOrdered By: Radiologist Radiology on 94-48-3920HJAW Healthcare Work Phone: Urinalysis macro (dipstick) panel [...] mg/dLNOMS HealthcareNOMS HealthcareUS OB BPP W NON-STRESSon 45-77-7177[address] [address] Ultrasound Report Signed Patient: ALETA CASTRO MR#: [id number] : 2000 Acct:[id number] Age/Sex: 24 / F ADM Date: 01/11/25 Loc: US Attending Dr: Doc Thomas D.O. Ordering Physician: Doc Thomas D.O. Date of Service: 01/11/25 Procedure(s): US OB BPP w non-stress Accession Number(s): [id number] cc: Doc Thomas D.O.; ROSALIE PAYNE The [address] [id number] Patient Name: ALETA CASTRO MRN: [id number] date: 2000 Sex: F Assigned Patient Location: [facility] Current Patient Location: Accession/Order Number: [id number] Exam Date: 01/11/2025 15:03 Report Date: 01/11/2025 [...] Aguilar M.D. 01/11/2025 9:15 PM Dictation Location: [place] [address] Electronically authenticated by: [id number] Y Date: 01/11/2025 21:15 Dictated By: Deshaun Aguilar M.D. Signed By: 01/11/252117 DD/ 14 TD/TT: Hydro Pneumatic Tester:MARTINEadiology, Radiologist, MD - 01/11/2025 [place] [address] Ultrasound Report Signed Patient: ALETA CASTRO MR#: [id number] : 2000 Acct:[id number] Age/Sex: 24 / F ADM Date: 01/11/25 Loc: US Attending Dr: Doc Thomas D.O. Ordering Physician: Doc Thomas D.O. Date of Service: 01/11/25 Procedure(s): US OB BPP w non-stress Accession Number(s): [id number] cc: Doc Thomas D.O.; ROSALIE PAYNE [place] [phone] Patient Name: ALETA CASTRO MRN: [id number] date: 2000 Sex: F Assigned Patient Location: [facility] Current Patient Location: Accession/Order Number: [id number] Exam Date: 01/11/2025 15:03 Report Date: 01/11/2025 [...] Aguilar M.D. 01/11/2025 9:15 PM Dictation Location: [place] [address] Electronically authenticated by: [id number] Y Date: 01/11/2025 21:15 Dictated By: Deshaun Augilar M.D. Signed By: 01/11/252117 DD/ 14 TD/TT: Hydro Pneumatic Tester: KYE HealthcareRadiology Study observation (narrative)NOMS HealthcareUS OB BPP W NON-STRESSOrdered By: Radiologist Radiology on 96-62-6086AL[facility] Work Phone: Urinalysis macro (dipstick) panel [...] mg/dLNOMS HealthcareNOMS HealthcareUS OB BPP W NON-STRESSon 61-97-1712KxhSaint [place] [address] Ultrasound Report Signed Patient: ALETA CASTRO MR#: [id number] : 2000 Acct:[id number] Age/Sex: 24 / F ADM Date: 01/02/25 Loc: US Attending Dr: Doc Thomas D.O. Ordering Physician: Doc Thomas D.O. Date of Service: 01/02/25 Procedure(s): US OB BPP w non-stress Accession Number(s): [id number] cc: Doc Thomas D.O.; ROSALIE PAYNE [place] [phone] Patient Name: ALETA CASTRO MRN: [id number] date: 2000 Sex: F Assigned Patient Location: [facility] Current Patient Location: Accession/Order Number: [id number] Exam Date: 01/02/2025 09:00 Report Date: 01/02/2025 [...] 01/02/2025 3:02 PM Dictation Location: [place] [address] Electronically authenticated by: [id number] Y Date: 01/02/2025 15:02 Dictated By: Emmanuel Dalton M.D. Signed By: 01/02/25 1505 DD/ 1502 TD/TT: Hydro Pneumatic Tester:TBHRadiology, Radiologist, - 01/02/2025 [place] [address] Ultrasound Report Signed Patient: ALETA CASTRO MR#: [id number] : 2000 Acct:[id number] Age/Sex: 24 / F ADM Date: 01/02/25 Loc: US Attending Dr: Doc Thomas D.O. Ordering Physician: Doc Thomas D.O. Date of Service: 01/02/25 Procedure(s): US OB BPP w non-stress Accession Number(s): [id number] cc: Doc Thomas D.O.; ROSALIE PAYNE [address] [address] Patient Name: ALETA CASTRO MRN: [id number] date: 2000 Sex: F Assigned Patient Location: [facility] Current Patient Location: Accession/Order Number: [id number] Exam Date: 01/02/2025 09:00 Report Date: 01/02/2025 [...] 01/02/2025 3:02 PM Dictation Location: [place] [address] Electronically authenticated by: [id number] Y Date: 01/02/2025 15:02 Dictated By: Emmanuel Dalton M.D. Signed By: 01/02/25 1504 DD/ 150 TD/TT: Hydro Pneumatic Tester: KYE HealthcareRadiology Study observation (narrative)NOMS HealthcareUS OB BPP W NON-STRESSOrdered By: Radiologist Radiology on 45-39-5066NAHCSelect Specialty Hospital Work Phone: aLL THYROID STIM HORMONEon [phone] and review of laboratory resultsAbnoHeritage Valley Health System Qn0.131 m[IU]/LLow NOMS HealthcareCLINISYNCNOMS HealthcareUS OB BPP W NON-STRESSon 12-26-2024 [place] [address] Ultrasound Report Signed Patient: ALETA CASTRO MR#: [id number] : 2000 Acct:[id number] Age/Sex: 24 / F ADM Date: 12/26/24 Loc: US Attending Dr: Doc Thomas D.O. Ordering Physician: Doc Thomas D.O. Date of Service: 12/26/24 Procedure(s): US OB BPP w non-stress Accession Number(s): [id number] cc: Doc Thomas D.O.; ROSALIE PAYNE [address] [address] Patient Name: ALETA CASTRO MRN: [id number] date: 2000 Sex: F Assigned Patient Location: US Current Patient Location: Accession/Order Number: [id number] Exam Date: 12/26/2024 09:00 Report Date: 12/26/2024 [...] Aguilar M.D. 12/26/2024 11:19 AM Dictation Location: [place] [address] Electronically authenticated by: [id number] Y Date: 12/26/2024 11:19 Dictated By: Deshaun Aguilar M.D. Signed By: 12/26/24 1122 DD/ 1119 TD/TT: Hydro Pneumatic Tester:TBHRadiology, Radiologist, MD - 12/26/2024 [place] [address] Ultrasound Report Signed Patient: ALETA CASTRO MR#: [id number] : 2000 Acct:[id number] Age/Sex: 24 / F ADM Date: 12/26/24 Loc: US Attending Dr: Doc Thomas D.O. Ordering Physician: Doc Thomas D.O. Date of Service: 12/26/24 Procedure(s): US OB BPP w non-stress Accession Number(s): [id number] cc: Doc Thomas D.O.; ROSALIE PAYNE The [address] [address] Patient Name: ALETA CASTRO MRN: [id number] date: 2000 Sex: F Assigned Patient Location: US Current Patient Location: Accession/Order Number: [id number] Exam Date: 12/26/2024 09:00 Report Date: 12/26/2024 [...] Aguilar M.D. 12/26/2024 11:19 AM Dictation Location: [place] [address] Electronically authenticated by: [id number] Y Date: 12/26/2024 11:19 Dictated By: Deshaun Aguilar M.D. Signed By: 12/26/24 1122 DD/ 1119 TD/TT: Hydro Pneumatic Tester: KYE HealthcareRadiology Study observation (narrative)NOMS HealthcareUS OB BPP W NON-STRESSOrdered By: Radiologist Radiology on 19-63-3111BLZC [facility] Work Phone: US OB GROWTHon [phone] [address] Ultrasound Report Signed Patient: ALETA CASTRO MR#: [id number] : 2000 Acct:[id number] Age/Sex: 24 / F ADM Date: 12/26/24 Loc: US Attending Dr: Doc Thomas D.O. Ordering Physician: Doc Thomas D.O. Date of Service: 12/26/24 Procedure(s): US OB growth Accession Number(s): [id number] cc: Doc Thomas D.O.; ROSALIE PAYNE [place] [id number] Patient Name: ALETA CASTRO MRN: [id number] date: 2000 Sex: F Assigned Patient Location: Current Patient Location: Accession/Order Number: [id number] Exam Date: 12/26/2024 09:00 Report Date: 12/26/2024 11:31 At the request of: DOC THOMAS DO Procedure: US OB growth Obstetric ultrasound for growth INDICATION: Evan's disease FINDINGS: Single live anterior cephalic presentation longitudinal lie. Amniotic fluid index 12.4 cm between the gestational age fifth and 95th percentile. Largest pocket of fluid 5.1 cm. heart rate 1 52 bpm. motion documented by the hotel housekeeper.. Estimated weight 2093 g 71.4%. Gestation age 32 weeks and 0 days. Biparietal diameter 7.93 m. Head circumference 30.7 cm. Otherwise the 10.6 cm. Abdominal circumference 28.9 cm. Femur length 6.4 cm. US/US OB growth IMPRESSION: Single live intrauterine of approximately 30 weeks Impression dictated by: Deshaun Aguilar M.D. 12/26/2024 11:31 AM Dictation Location: [place] [address] Electronically authenticated by: [id number] Y Date: 12/26/2024 11:31 Dictated By: Deshaun Aguilar M.D. Signed By: 12/26/24 1133 DD/ 1131 TD/TT: Hydro Pneumatic Tester:TBHRadiology, Radiologist, MD - 12/26/2024 [place] [address] Ultrasound Report Signed Patient: ALETA CASTRO MR#: [id number] : 2000 Acct:[id number] Age/Sex: 24 / F ADM Date: 12/26/24 Loc: Attending Dr: Doc Thomas D.O. Ordering Physician: Doc Thomas D.O. Date of Service: 12/26/24 Procedure(s): US OB growth Accession Number(s): [id number] cc: Doc Thomas D.O.; ROSALIE PAYNE [address] [address] Patient Name: ALETA CASTRO MRN: [id number] date: 2000 Sex: F Assigned Patient Location: Current Patient Location: Accession/Order Number: [id number] Exam Date: 12/26/2024 09:00 Report Date: 12/26/2024 11:31 At the request of: DOC THOMAS DO Procedure: US OB growth Obstetric ultrasound for growth INDICATION: Evan's disease FINDINGS: Single live anterior cephalic presentation longitudinal lie. Amniotic fluid index 12.4 cm between the gestational age fifth and 95th percentile. Largest pocket of fluid 5.1 cm. heart rate 1 52 bpm. motion documented by the hotel housekeeper.. Estimated weight 2093 g 71.4%. Gestation age 32 weeks and 0 days. Biparietal diameter 7.93 m. Head circumference 30.7 cm. Otherwise the 10.6 cm. Abdominal circumference 28.9 cm. Femur length 6.4 cm. US/US OB growth IMPRESSION: Single live intrauterine of approximately 30 weeks Impression dictated by: Deshaun Aguilar M.D. 12/26/2024 11:31 AM Dictation Location: [place] [address] Electronically authenticated by: [id number] Y Date: 12/26/2024 11:31 Dictated By: Deshaun Aguilar M.D. Signed By: 12/26/24 1133 DD/ 1131 TD/TT: Hydro Pneumatic Tester: KYE HealthcareRadiology Study observation (narrative)[facility] HealthcareUS OB GROWTHOrdered By: Radiologist Radiology on 61-68-5726YPYOSelect Specialty Hospital Work Phone: Urinalysis macro (dipstick) panel (U)on 12-23-2024 Bilirubin, UANegativeNegative - 4(70) +++ mg/dLNOMS HealthcareBlood, UANegative Negative - 50 Randall/mcLNOMS HealthcareClarity, UAClearNOMS HealthcareColor, UA YellowNOMS HealthcareGlucose, UA1+Negative - 1999(110) ++++ mg/dLNONV Healthcare Interpretation and review of laboratory resultsAbnormalNONV HealthcareKetones, UANegativeNegative - 160(16) ++++ mg/dLNOMS HealthcareLeukocytes, UATrace Negative - 500+++ Rick/mcLNOMS HealthcareNitrite, UANegativeNegative - Positive NOMS HealthcarepH, UA65 - 9NOMS HealthcareProtein, UANegativeNegative - 2000(20) ++++ mg/dLNOMS HealthcareSpec Grav, UA1.0151 - 1.03NOMS HealthcareUrobilinogen, UA2.00.2 - 12 mg/dLNOMS HealthcareNOMS HealthcareUrinalysis macro (dipstick) panel (U)on 59-95-4707Uwogpdsuf, UANegativeNegative - 4(70) +++ mg/dLNOMS HealthcareBlood, UANegativeNegative [...] UA0.20.2 - 12 mg/dLNOMS HealthcareNOMS HealthcareOffice Visiton 54-10-0263Yrxglj-up visit [id number] Aleta Castro 2000 F Date Provider Department Center 11/27/2024 516[address]-JLRUSXLESA SINGH TRES [facility] Family History Family Status - Relation Status Age at Mother Alive Father Alive Level of Service:48391 [place] OFFICE/OUTPATIENT NEW LOW MDM 30 MINUTES Reason for Visit and Comments: New Patient [632] - New patient here today to establish care with cardiology Syncope [506] POTS [Other] Positive tilt table [Other] 6 months [Other]NormalUnCleveland Clinic Akron General Lodi HospitalUrinalysis macro (dipstick) panel (U)on 69-46-2253Ihdjmjcpb, UAPositiveNegative - 4(70) +++ mg/dLNOMS HealthcareComment on [...] 12 mg/dLNOMS HealthcareNOMS HealthcareCA ECHO DOPPLER COMPLETEon 79-86-3843Fuo[place] [address] Cardiology Report Signed Patient: ALETA CASTRO MR#: [id number] : 2000 Acct:[id number] Age/Sex: 24 / F ADM Date: 11/12/24 Loc: CARD Attending Dr: Luna Steen Ordering Physician: Luna Steen Date of Service: 11/12/24 Procedure(s): CA echo doppler complete Accession Number(s): [id number] cc: Luna Steen; ROSALIE PAYNE Patient Name: ALETA CASTRO MR#: [id number] : 2000 Exam Date: 11/12/2024 Ordering Doctor: LNUA STEEN [facility] ECHOCARDIOGRAM REPORT PROCEDURE: CA ECHO [...] not included)...TBHRadiology, Radiologist, MD - 11/24/2024 [place] [address] Cardiology Report Signed Patient: ALETA CASTRO MR#: [id number] : 2000 Acct:[id number] Age/Sex: 24 / F ADM Date: 11/12/24 Loc: CARD Attending Dr: Luna Steen Ordering Physician: Luna Steen Date of Service: 11/12/24 Procedure(s): CA echo doppler complete Accession Number(s): [id number] cc: Luna Steen; ROSALIE PAYNE Patient Name: ALETA CASTRO MR#: [id number] : 2000 Exam Date: 11/12/2024 Ordering Doctor: LUNA STEEN [facility] ECHOCARDIOGRAM REPORT PROCEDURE: CA ECHO [...] Signed By: 11/24/24 1640 DD/ 1639 TD/TT: Hydro Pneumatic Tester: KYE [facility] HospitalRadiology Study observation (narrative)[facility] Specialty HospitalCA ECHO DOPPLER COMPLETEOrdered By: Radiologist Radiology on 76-10-2906G[facility] Work Phone: ecg 12-LEADon [phone] [place] [address] Electrocardiograph Report Signed Patient: ALETA CASTRO MR#: [id number] : 2000 Acct:[id number] Age/Sex: 24 / F ADM Date: 11/12/24 Loc: CARD Attending Dr: Luna Steen Ordering Physician: Luna Steen Date of Service: 11/12/24 Procedure(s): ECG 12 lead Accession Number(s): [id number] cc: [facility] Test Date: 2024-11-12 Pat Name: ALETA CASTRO Department: Room: - 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 Signed By: 11/13/24133311/13/24 133 DD/ 1206 TD/TT: Hydro Pneumatic Tester: KYE Garay 12-LEADOrdered By: Radiologist Radiology on 81-14-8434NHCL [employer] Work Phone: ECG 12-LEADon 58-67-1071Degumsrnw Study observation (narrative)NOMS HealthcareALL CBC WITH AUTO DIFFon 61-23-9271USZNLMODB ABSOLUTE PTWR4ATKP HealthcareBasophils/100 WBC (Bld)0.2 %0.2 - 2.0 %[facility] Eosinophils/100 WBC (Bld)0.5 %Low0.9 - 7.0 %NOMS HealthcareErythrocyte distribution width (RBC) [Ratio]12.7 %11.0 - 15.0 %NOMS HealthcareHematocrit (Bld) [Volume fraction]31.2 %Low36.0 - 48.0 %NOM HealthcareHemoglobin (Bld) [Mass/Vol]10.8 g/dLLow12.0 - 16.0 g/dLNONV HealthcareIMMATURE GRANULOCYTES ABS AUTO0.01NOMS HealthcareImmature granulocytes/100 WBC (Bld)0.2 %0.0 - 0.5 %NOM HealthcareInterpretation and review of laboratory resultsAbnormalNONV Healthcare LYMPHOCYTES ABSOLUTE SOBV4DzzARHC HealthcareLymphocytes/100 WBC (Bld)15 %Low20.5 - 60.0 %[facility] Specialty HospitalMCH (RBC) [Entitic mass]32.3 pg26.7 - 34.0 pgNONortheast Missouri Rural Health NetworkMCHC (RBC) [Mass/Vol]34.6 g/dL29.9 - 35.2 g/dLNONortheast Missouri Rural Health NetworkMCV (RBC) [Entitic vol]93.4 fL81.0 - 99.0 fLNONV HealthcareMONOCYTES ABSOLUTE AUTO0.5NOMS HealthcareMonocytes/100 WBC (Bld)7.7 %1.7 - 12.0 %NOMS HealthcareNEUTROPHILS ABSOLUTE DMUP3JEEN HealthcareNeutrophils/100 WBC (Bld)76.4 %High43.0 - 75.0 % NOM HealthcarePlatelet mean volume (Bld) [Entitic vol]9.7 fL9.5 - 13.5 fLNONV HealthcareTBH EO #0NOMS HealthcareTBH NQJ514NEIL HealthcareTB RBC3.34LowNOMS HealthcareTBH WBC6.6NOMS HealthcareCLINISYNCNOMS HealthcareIGP,APTIMA HPV,AGE GDLNon 39-94-5849PKA GDLN ACOG TESTINGNote.[facility] HealthcareComment on above:TESTS RESULT FLAG UNITS REF RANGE LAB Clinician Provided Cytology Information Source.............Endocervix No. of containers..01 ThinPrep Vial Age Ernieo CESAR Yaa... FLAG LEGEND: L-Low Normal,H-High Normal,LL-Alert Low,HH-Alert High <-Panic Low,>-Panic High,A-Abnormal,AA-Critical Abnormal Performed at: 01 =G [facility] [address] Ludy Hector MD, IGP, RFX APTIMA HPV ASCUNote.[facility] HealthcareComment on above:TESTS RESULT FLAG UNITS REF RANGE LAB DIAGNOSIS: 02 NEGATIVE FOR INTRAEPITHELIAL LESION OR MALIGNANCY. THIS SPECIMEN WAS RESCREENED PART OF OUR ASSESSMENT MANAGER PROGRAM. Specimen adequacy: 02 Satisfactory for evaluation. No endocervical component is identified. Performed by: 02 Brionna Mello Operations Intern ([facility]) QC reviewed by: 02 Polina Simons Operations Intern . 02 Note: Note 02 The Pap [...] <-Panic Low,>-Panic High,A-Abnormal,AA-Critical Abnormal Performed at: [address] [address] Ludy Hector MD, Performed at: = - [facility] [id number] Aircraft Structure Mechanic: Ludy Hector MD, Phone: [phone] Performed at: [facility] [address] [id number] Aircraft Structure Mechanic: Ludy Hector MD, Phone: [phone] BRUSH-SPATULA ENDOCERVIX CLINISYNCNOMS HealthcareRECURRENT VAGINITIS (HTRX)on 00-51-5799ZBCVBWNYD VAGINAE 0NOMS HealthcareATOPOBIUM VAGINAENot detectedNOMS HealthcareBVAB 2,3 (BACTERIAL VAGINOSIS ASSOCIATED BACTERIA 2, 3); MOBILUNCUS FXH7RNUL HealthcareBVAB 2,3 (BACTERIAL VAGINOSIS ASSOCIATED BACTERIA 2, 3); MOBILUNCUS SPPNot detectedNOMS HealthcareCANDIDA ALBICANS, PARAPSILOSIS, OARFISHLEI5APAJ HealthcareCANDIDA ALBICANS, PARAPSILOSIS, TROPICALISNot detectedNOMS HealthcareCANDIDA GLABRATA0 NOMS HealthcareCANDIDA GLABRATANot detectedNOMS HealthcareCANDIDA IUBKPP5VWWJ HealthcareCANDIDA KRUSEINot detectedNOMS HealthcareCHLAMYDIA PNDQEUJBVCP9MTJP HealthcareCHLAMYDIA TRACHOMATISNot detectedNOMS HealthcareGARDNERELLA VAGINALIS0 NOMS HealthcareGARDNERELLA VAGINALISNot detectedNOMS HealthcareMEGASPHAERA (TYPES 1, 2)0NOMS HealthcareMEGASPHAERA (TYPES 1, 2)Not detectedNOMS Healthcare MYCOPLASMA VCQZLWWVYY6YZOT HealthcareMYCOPLASMA GENITALIUMNot detectedNOMS HealthcareNEISSERIA KKHJLCYSZVJ7YBAK HealthcareNEISSERIA GONORRHOEAENot detected NOMS HealthcareTRICHOMONAS RXAKZQKKO2UDRZ HealthcareTRICHOMONAS VAGINALISNot detectedNOMS HealthcareNOMS HealthcareUrinalysis macro (dipstick) panel (U)on 47-68-5690Sdimimaxo, UAPositiveNegative - 4(70) +++ mg/dLNOMS HealthcareBlood, UANegativeNegative [...] 12 mg/dLNOMS HealthcareNOMS HealthcareUS OB CERVICAL LENGTHon 39-85-6586[address] [address] Ultrasound Report Signed Patient: ALETA CASTRO MR#: [id number] : 2000 Acct:[id number] Age/Sex: 24 / F ADM Date: 10/06/24 Loc: US Attending Dr: Doc Thomas D.O. Ordering Physician: Doc Thomas D.O. Date of Service: 10/06/24 Procedure(s): US OB cervical length Accession Number(s): [id number] cc: Doc Thomas D.O.; ROSALIE PAYNE [place] [address] Patient Name: ALETA CASTRO MRN: [employer]:[id number] date: 2000 Sex: F Assigned Patient Location: US Current Patient Location: US Accession/Order Number: [id number] Exam Date: 10/06/2024 14:25 Report Date: 10/06/2024 [...] Jr., D.O. 10/06/2024 2:26 PM Dictation Location: [place] [address] Electronically authenticated by: [id number] Y Date: 10/06/2024 14:26 Dictated By: Jermaine Nguyễn M.D. Signed By: 10/06/24 1428 DD/ 1426 TD/TT: Hydro Pneumatic Tester:NINAHRadiology, Radiologist, MD - 10/06/2024 [place] [address] Ultrasound Report Signed Patient: ALETA CASTRO MR#: [id number] : 2000 Acct:[id number] Age/Sex: 24 / F ADM Date: 10/06/24 Loc: US Attending Dr: Doc Thomas D.O. Ordering Physician: Doc Thomas D.O. Date of Service: 10/06/24 Procedure(s): US OB cervical length Accession Number(s): [id number] cc: Doc Thomas D.O.; ROSALIE PAYNE [place] [id number] Patient Name: ALETA CASTRO MRN: TBH:[id number] date: 2000 Sex: F Assigned Patient Location: US Current Patient Location: US Accession/Order Number: [id number] Exam Date: 10/06/2024 14:25 Report Date: 10/06/2024 [...] Jr., D.O. 10/06/2024 2:26 PM Dictation Location: [place] [address] Electronically authenticated by: [id number] Y Date: 10/06/2024 14:26 Dictated By: Jermaine Nguyễn M.D. Signed By: 10/06/24 1428 DD/ 25 TD/TT: Hydro Pneumatic Tester: KYE [facility] HospitalRadiology Study observation (narrative)[facility] OB CERVICAL LENGTHOrdered By: Radiologist Radiology on 73-01-3107SEWX [employer] Work Phone: US OB 14+ WEEKS ANATOMY SCANon 88-60-8023MS OB 14+ WEEKS ANATOMY SCANFINDINGS: A single, [...] Delivery: 02/20/25 Gestational Age as of 09/02/2024: 81w2cCvphzngmkk macro (dipstick) panel (U)on 81-44-0958Ziodqjnwm, UANegativeNegative - 4(70) +++ mg/dLNOMS HealthcareBlood, UANegativeNegative [...] mg/dLNOMS HealthcareNOMS Healthcare ALL THYROID STIM HORMONEon 59-58-8692TEW Qn0.836 m[IU]/LNOMS HealthcareCLINISYNC NOMS HealthcareUrinalysis macro (dipstick) panel (U)on 75-59-1957Wqwwckgvb, UA NegativeNegative - 4(70) +++ mg/dLNOMS HealthcareBlood, [...] 12 mg/dLNOMS HealthcareNOMS HealthcareALL THYROID STIM HORMONEon 88-85-7999NUS Qn1.413 m[IU]/LNOMS HealthcareCLINISYNCNOMS HealthcareUrinalysis macro (dipstick) panel (U)on 90-59-8110Tulvwtqjz, UANegativeNegative - 4(70) +++ mg/dLNOMS HealthcareBlood, UANegativeNegative [...] UA1.00.2 - 12 mg/dLNOMS HealthcareNOMS HealthcareBOX TESTon 67-68-7828AMZ TEST SENT OUTUNITY NOMS LkvggwlyhnTQV5ZTTHTSNVI BlvprkiacrXWX89/3/25NONV HealthcareUNWVUMEDICINE B[facility] CLINISYNCNOMS HealthcareTBH DRUG SCREEN RAPID (URINE)on 70-69-1898CADTFHOGPBH SCREEN URINENegativeNEGATIVENOMS HealthcareBARBITURATES SCREEN URINENegative NEGATIVENOMS HealthcareBENZODIAZEPINES [...] URINENegativeNEGATIVENOMS HealthcareCLINISYNCNOMS HealthcareHCG ( test) Ql (U)on 83-80-3297Qqsshwkjowzgag and review of laboratory resultsAbnormalNOMS HealthcarePreg Test, UrPositiveNegativeNOMS HealthcareNOMS HealthcareUS OB TRANSVAGINALon 26-80-7956RY OB TRANSVAGINALEXAM: US OB TRANSVAGINAL HISTORY: Dating. [...] II, MD, PHD at 19-Jul-2024 08:55:15 PM [facility] TeleradiologyNormalNot AvailableComment on above:Order Comment: US OB TRANSVAGINAL No LMP recorded.Urinalysis macro (dipstick) panel (U)on 25-48-8136Sqgyqmejy, UA NegativeNegative - 4(70) +++ mg/dLNOMS HealthcareBlood, UANegativeNegative - 50 Randall/mcLNOMS HealthcareClarity, UAClearNOMS HealthcareColor, UAYellowNOMS HealthcareGlucose, UANegativeNegative - 2000(110) ++++ mg/dLNOMS Healthcare Interpretation and review of laboratory resultsNormalNONV HealthcareKetones, UA NegativeNegative - 160(16) ++++ mg/dLNOMS HealthcareLeukocytes, UANegative Negative - 500+++ Rick/mcLNOMS HealthcareNitrite, UANegativeNegative - Positive NOMS HealthcarepH, UA6.55 - 9NOMS HealthcareProtein, UANegativeNegative - 2000(20) ++++ mg/dLNOMS HealthcareSpec Grav, UA1.021 - 1.03NOMS Healthcare Urobilinogen, UA1.00.2 - 12 mg/dLNOMS HealthcareNOMS HealthcareCBC W Auto Differential panel (Bld)on 07-76-4452Wdvt form neutrophils (Bld) [#/Vol]CANCELED NOMS HealthcareComment on above:Result canceled by the ancillary.Band form neutrophils/100 WBC (Bld)CANCELED%NOMS HealthcareComment on above:Result canceled by the ancillary.Basophils (Bld) [#/Vol]19 10*3/uLNOMS Healthcare Basophils/100 WBC (Bld)0.4 %NOM HealthcareBlasts (Bld) [#/Vol]CANCELED0 cells/uLNOMS HealthcareComment on above:Result canceled by the ancillary. Blasts/100 WBC (Bld)CANCELED%NOMS HealthcareComment on above:Result canceled by the ancillary.Eosinophils (Bld) [#/Vol]91 10*3/uLNOMS HealthcareEosinophils/100 WBC (Bld)1.9 %[facility] HealthcareErythrocyte distribution width (RBC) [Ratio]12.5 % 11.0 - 15.0 %NOM HealthcareHematocrit (Bld) [Volume fraction]38.9 %35.0 - 45.0 %[facility] HealthcareHemoglobin (Bld) [Mass/Vol]12.8 g/dL11.7 - 15.5 g/dLSelect Specialty HospitalLymphocytes (Bld) [#/Vol]1282 10*3/uLNOMS HealthcareLymphocytes/100 WBC (Bld)26.7 %[facility] CenterH (RBC) [Entitic mass]30.6 pg27.0 - 33.0 pgCameron Regional Medical CenterHC (RBC) [Mass/Vol]32.9 g/dL32.0 - 36.0 g/dLNONV HealthcareComment on above:For adults, a slight decrease in the calculated MCHC value (in the range of 30 to 32 g/dL) is most likely not clinically significant; however, it should be interpreted with caution in correlation with other red cell parameters and the patient's clinical condition. MCV (RBC) [Entitic vol]93.1 fL80.0 - 100.0 fLCACHE VALLEY HOSPITAL HealthcareMetamyelocytes (Bld) [#/Vol]CANCELED0 cells/uLNOMS HealthcareComment on [...] the ancillary.Nucleated RBC/100 WBC (Bld) [Ratio]CANCELED0 /100 WBCNONV Healthcare Comment on above:Result canceled by the [...] NOMS HealthcareIron and Iron binding capacity panelon 98-68-9734Fvsw [Mass/Vol] 101 ug/dLNONV HealthcareIron binding capacity [Mass/Vol]340NOMS HealthcareIron saturation [Mass fraction]30NOMS HealthcareLaboratory - Chemistry and Chemistry - challengeon 97-06-1335Bxjvpsz [Mass/Vol]4.8 g/dL3.6 - 5.1 g/dLNONV Healthcare Albumin/Globulin [Mass ratio]1.8 {ratio}NOMS HealthcareALP [Catalytic [...] (S/P/Bld) [Vol rate/Area]122 mL/min/{1.73_m2}> OR = 60 mL/min/1.67c2PTPF HealthcareGlobulin (S) [Mass/Vol]2.6 g/dLNOMS HealthcareGlucose [Mass/Vol]95 mg/dL65 - 99 mg/dLNONV HealthcareComment on above: Fasting reference interval Potassium [Moles/Vol]4.2 mmol/L3.5 - 5.3 mmol/LNOMS HealthcareProtein [Mass/Vol] 7.4 g/dL6.1 - 8.1 g/dLNOMS HealthcareSodium [Moles/Vol]139 mmol/L135 - 146 mmol/LNOMS HealthcareUrea nitrogen [Mass/Vol]16 mg/dL7 - 25 mg/dLNOMS Healthcare Urea nitrogen/Creatinine [Mass ratio]SEE NOTE:NOMS HealthcareComment on above: Not Reported: BUN and Creatinine are within reference range. Laboratory - Serology - non-microon 33-03-2474Pebmzyczgetdy Ab Qn153 [IU]/mLHigh < or = 1 IU/mLNOMS HealthcareTPO Ab Qn27 [IU]/mLHighNIParkwest Medical Center Information 91-85-4967Rvcwkexgdqkbjb and review of laboratory resultsAbnormal [facility] Organization Information Site ID: QTW Name: [facility] Address: [address] [place] [address] Director: Urvashi TaborAscension St. Michael Hospital Organization Information Site ID: QPT Name: [facility] Address: [address] [facility], [address] [place] [address] Director: Yonis Beck MD[address] 86-33-8179Jara T3 [Mass/Vol] 3.6 pg/mLNormal2.3-4.2Quest DiagnosticsComment on above:Performed By: #### 649, 31497, 866 #### [facility] [place] [address] Opto Mechanical Engineer: Yonis Beck MDT, [facility] 85-46-0558Bbxk T4 [Mass/Vol]1.1 ng/dLNormal0.8-1.8Quest DiagnosticsComment on above:Order Comment: FASTING:NO FASTING: NOPerformed By: #### 509, 17302, 866 #### [facility] [place] [address] Opto Mechanical Engineer: Yonis Mari 73-09-8602SVA Qn1.98 m[IU]/LNormalQuest DiagnosticsComment on above:Result Comment: Reference Range > or = 20 Years 0.40-4.50 Ranges First trimester 0.26-2.66 Second trimester 0.55-2.73 Third trimester 0.43-2.91Performed By: #### 689, 84442, 866 #### [facility] [place] [address] Opto Mechanical Engineer: Yonis WOLF ( test) IA.rapid Ql (U)Ordered By: Marcelle Espinosa on 73-75-4000VGL ( test) Ql (U)NegativePromedica Toledo HospitalHCG,Urineon 37-63-2929Ywzn HCG ( test) Ql (U) NegativeNoFormerly [facility] Physician GroupComment on above:Result Comment: PERFORMED BY: [place] [address] PATHOLOGIST DAIRY BAR MANAGER RAYMOND SUERO M.D.Performed By: #### [facility] #### [place] [address] USALon 90-62-0533YMqeathsy: [id number] Received: 09/03/23 Status: FRANKLYN Gonzales Num: [id number] Spec Type: Surgical Subm Dr: Marcelle Espinosa [...] Location Account Attending Physician Aleta Castro / [id number] Marcelle Espinosa DO SPEC NUM: [id number] RECD: 09/03/23 STATUS: FRANKLYN GONZALES NUM: [id number] MIRIAM: 09/02/23- SUBM DR: Marcelle Espinosa DO ENTERED: 09/03/23 [facility] DR: SPEC TYPE: Surgical DEPT: S [...] mild squamous acanthosis and occasionally associated Specimen: [id number] Received: 09/03/23 Status: FRANKLYN Bradshawcharley Num: [id number] Spec Type: Surgical Subm Dr: Marcelle Espinosa, Tissues: A Small Intestine - Biopsy/Polyp (SMALL BOWEL BX) B GASTRIC FOR HP (GASTRIC HP) C Esophagus Biopsy (DISTAL ESOPHAGUS) D Esophagus Biopsy (PROXIMAL ESOPHAGUS) E Colon Biopsy (RANDOM RT COLON) F Colon Biopsy (RANDOM LT COLON) Procedures: HE/12, Gross/Micro L4/6, H PYLORI, IHC First AB Patient: Aleta Castro N [id number] (Continued) Specimen: [id number] Received: 09/03/23 (Continued) Pathological Diagnosis (Continued) Signed (signature on file) Heather Villegas MD 09/05/23 1417 Specimen: [id number] Received: 09/03/23 Status: FRANKLYN Gonzales Num: [id number] Spec Type: Surgical Subm Dr: Marcelle Espinosa DO Tissues: A Small Intestine - Biopsy/Polyp (SMALL BOWEL BX) B GASTRIC FOR HP (GASTRIC HP) C Esophagus Biopsy (DISTAL ESOPHAGUS) D Esophagus Biopsy (PROXIMAL ESOPHAGUS) E Colon Biopsy (RANDOM RT COLON) F Colon Biopsy (RANDOM LT COLON) Procedures: HE/12, Gross/Micro L4/6, H PYLORI, IHC First AB Patient: Aleta Castro N [id number] (Continued) Specimen: [id number] Received: 09/03/23 (Continued) Pathological Diagnosis (Continued) lymphocytic [...] 0.1 cm, entirely submitted (more content not included)...[facility] Physician GroupInsurance Correspondence Officeon 91-82-4071Jshhnasdd Correspondence [id number]#1.00TIFFNoAshtabula General HospitalIntraOperative Documentson 63-35-9924BcvuhApxotphbu [id number]#1.00TIFSumma Health Akron CampusPostoperative Documentson 13-74-0159Snuffloyjxniw Documents [id number]#1.00TIFSumma Health Akron CampusMain OR Intraoperative Recordon 71-72-4362Lygt OR Intraoperative Record IntraOp Document Type FT Summary Primary Physician: Myron Marroquin DO Finalized Date/Time: 04/25/23 09:04:33 Pt. Name: ALETA CASTRO/Sex: 2000 Female Med Rec #: [id number] Physician: Myron Marroquin DO Financial #: [id number] Pt. Type: A Room/Bed: [facility]/ Admit/Disch: 04/23/23 06:25:15 - 04/23/23 14:50:00 Institution: [...] assist with the block. Patient's heartrate 89, iu48-693% on room air. patient tolerated block well. 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 Last Modified By: Souleymane RN, Lyle Comer RN, Lyle Comer RNLyle 04/23/23 10:59:32 04/23/23 10:59:32 04/23/23 10:59:32 Entry 4 Entry 5 Entry 6 Case Attendee Regulo Rodgers Laura C Wilhelm CST, Benjamin Role Performed Staff - Other Scrub - Primary GENETICIST/SA Time In 04/23/23 08:50:00 04/23/23 08:50:00 04/23/23 [...] FT Pre-Care Text: Implements (more content not included)...[facility] Consent for Anesthesiaon 86-84-4496Sdhjtqy for Anesthesia [id number]#1.00TIFSumma Health Akron CampusDischarge Instructionson 41-93-4594Wduiwjcmp Instructions [id number]#1.00[facility] HospitalIntraOperative Documentson 61-49-7489BufsbRvfymkquu Documents [id number]#1.00[facility] Memorial HospitalOperative Reporton 41-72-2971Osvgxmort ReportSURGERY DATE: 04/23/2023 PLASTER PATTERN CASTER: Garry Camacho CST PREOPERATIVE DIAGNOSIS: Left knee anterior cruciate ligament tear POSTOPERATIVE DIAGNOSIS: Left knee anterior cruciate ligament tear OPERATION: Left knee diagnostic operative arthroscopy with autograft bien-pnnlhm-qytd anterior cruciate ligament reconstruction with InternalBrace augmentation ANESTHESIA: General as well as regional block ANESTHESIOLOGIST: KARTHIKEYAN Peacock ESTIMATED BLOOD LOSS: 10 mL INTRAVENOUS FLUIDS: Please see the operative record SPECIMEN: None COMPLICATIONS: None IMPLANTS: Arthrex qnvq-ylubha-zgie Tightrope system with the button for the [...] The anterior cruciate ligament was reconstructed using wpwp-hjvreg-vvsi from patellar tendon autograft with this InternalBrace [...] over reaming with a 10 mm barrel raiser. Excess bone debris is again removed. The [...] tensioned on the femo (more content not included)...[facility]hillComment on above:Result Comment: Electronically Signed By: Myron Marroquin DO\.ammy\Date and Time Signed: 04/24/23 07:15 ESTPreoperative Documentson 17-35-4546Sqlpqqarwodf Documents [id number]#1.00TIFFNormalAcmc Healthcare System GlenbeighConsent for Procedure/Surgeryon 47-97-5065Aekfact for Procedure/Surgery [id number]#1.00[facility] HospitalConsent for Treatmenton 89-38-4465Wvrmmbq for Treatment [id number]#1.00[facility] HospitalDischarge Instructionson 10-01-3479Xuqsrxbjn Instructions ALETA CASTRO :2000 Visit Date:04/23/2023 Inpatient Discharge Instructions Your Care Team Admitting Physician - Myron Marorquin DO Referring Physician - Myron Marroquni DO Reason for Your Visit LEFT KNEE [...] been scheduled. Call for any problems. Where: [address] [place] [id number] [employer] (1) Medications What How Much When Instructions Next Dose New acetaminophen-oxycodone (Percocet 5 mg-325 mg oral tablet) 1 Tablets By Mouth As Directed 1-2 po Q4-6h prn pain Dx: S83.512D Duration: 7 days Pickup at [facility]/pharmacy #2345 New aspirin (Ecotrin 325 mg Tab-EC) 1 Tablets By Mouth Every day Pickup at [facility]/pharmacy #2345 Pharmacy Information [facility]/pharmacy #[id number]: [address], [place] [phone] Allergies Banana (Throat tightness, Hives, Vomiting) Latex (Hives, Swelling) azithromycin (Hives) midodrine (Numbness) Education Materials [place], [place] [facility] DISCHARGE INSTRUCTIONS: ANTERIOR CRUCIATE [...] any concerns. Myron Marroquin, DO [facility] [address] [place] [address] Reviewed: 06-23 Revised: 03/29 Common Emergency [...] please share your experie (more content not included)...[facility]tering [facility] TownshipComment on above:Result Comment: Electronically Signed By: Marcelo MCQUEEN, Shyla Acevedo\.br\Date and Time Signed: 04/23/23 10:58 ESTH&P Updateon 04-23-2023H&P [id number]#1.00TIFF [facility]hillMain OR PACU I Recordon 76-83-7737Ecot OR PACU I RecordPACU Phase I Document Type FT Summary Primary Physician: Myron Marroquin DO Finalized Date/Time: 04/23/23 12:22:33 Pt. Name: ALETA CASTRO/Sex: 2000 Female Med Rec #: [id number] Physician: Myron Marroquin DO Financial #: [id number] Pt. Type: A Room/Bed: [place] [address] Admit/Disch: 04/23/23 06:25:15 - Institution: Case Times [...] Signatures Signed By: Valencia Jimenez RN 04/23/23 12:22[facility]hillMain OR Preoperative Recordon 50-90-1293Fsjw OR Preoperative RecordPreOp Document Type FT Summary Primary Physician: Myron Marroquin DO Finalized Date/Time: 04/23/23 08:50:41 Pt. Name: ALETA CASTRO/Sex: 2000 Female Med Rec #: [id number] Physician: Myron Marroquin DO Financial #: [id number] Pt. Type: A Room/Bed: [facility]/ Admit/Disch: 04/23/23 06:25:15 - Institution: [...] Signatures Signed By: Lyle Comer RN 04/23/23 08:50NoGalion Community HospitalMonitor Record on 06-24-5887Hogwvyg [id number]#1.00TIFF [facility]hillOperative Reporton 60-18-5622Upwzetqnx Report Patient: ALETA CASTRO Age: 22 years [...] Using maximal sterile barrier technique per current [facility] guidelines including hand hygeine, Guidance [...] The patient tolerated the procedure as expected.Normal [facility] System GlenbeighComment on above:Result Comment: Electronically Signed By: [facility] (), Cyrus Zepeda.br\Date and Time Signed: 04/23/23 07:56 ESTPatient Education - Texton 56-51-4537Wvjwfrm Education - Text [place], [place] [facility] DISCHARGE INSTRUCTIONS: ANTERIOR CRUCIATE [...] any concerns. Myron Marroquin DO [facility] [address] [place] [address] Reviewed: 06-23 Revised: 03/29[facility]hillProliberty hospital Note-Physicianon 15-01-4727Nubckcop Note-PhysicianPatient: ALETA CASTRO Age: 22 years Sex: [...] Daily, # 21 tab(s), Refills(s) 0, Pharmacy: [facility]/pharmacy #2345, 165, cm, 04/04/23 6:11:00 EST, Height/Length Dosing, 78, kg, 04/04/23 6:11:00 EST, Weight Dosing Percocet 5 mg-325 mg oral tablet: 1 tab(s), Oral, As Directed, 40 tab(s), Refill(s) 0, 1-2 po Q4-6hprn pain Dx: S83.512D Duration: 7 days, [facility]/pharmacy #2345, 165, cm, 04/04/23 6:11:00 EST, Height/Length Dosing, 78, kg, 04/04/23 6:11:00 EST, Weight Dosing, Home Medications (2) Active Ecotrin 325 mg Tab-EC 325 mg = 1 tab(s), Oral, Daily Percocet 5 mg-325 mg oral tablet 1 tab(s), Oral, As Directed Problem list: All Problems H/O: hypothyroidism / SNOMED CT 905696996 / Confirmed POTS (postural orthostatic tachycardia syndrome) / SNOMED CT 2490032000 / Confirmed Physical Examination Vital Signs 04/23/2023 [...] Blood Pressure 1 (more content not included)... [facility]hillComment on above:Result Comment: Electronically Signed By: [facility] Cyrus LEACH\.br\Date and Time Signed: 04/23/23 11:06 ESTProgress Note-PhysicianPatient: ALETA CASTRO Age: 22 years Sex: Female : 2000 Associated Diagnoses: None Author: Myron Marroquin DO Postoperative Information Procedure: L knee scope, ACL recon Preoperative Diagnosis: L ACL tear. Postoperative Diagnosis: same. Performed by: daniel. Crimping Machine Operator: Roby Camacho. Specimens Removed: none. Prosthesis: Arthrex. . Estimated Blood Loss: 10 ml. Complications: None. Anesthesia type: General, block.[facility]-FairhillComment on above:Result Comment: Electronically Signed By: Myron [...] Daily, # 21 tab(s), Refills(s) 0, Pharmacy: [facility]/pharmacy #2345, 165, cm, 04/04/23 6:11:00 EST, Height/Length Dosing, 78, kg, 04/04/23 6:11:00 EST, Weight Dosing Percocet 5 mg-325 mg oral tablet: 1 tab(s), Oral, As Directed, 40 tab(s), Refill(s) 0, 1-2 po Q4-6hprn pain Dx: S83.512D Duration: 7 days, [facility]/pharmacy #2345, 165, cm, 04/04/23 6:11:00 EST, [...] All Problems H/O: hypothyroidism / SNOMED CT 450149831 / Confirmed POTS (postural orthostatic tachycardia syndrome) / SNOMED CT 3098464087 / Confirmed, Active Problems (2) H/O: hypothyroidism POTS (postural orthostatic tachycardia syndrome) Histories Past Medical History: No active or resolved past medical history items have been selected or recorded. Family History: No family history items have been selected or recorded. Procedure history: Laparoscopic left ovarian R/o (8368415455). Ovarian cyst removal ([id number]). Social History Social & Psychosocial Habits Alcohol [...] U beta hCG Ql Negative . Plan [place] [employer] Anesthesiologists (ASA) physical status classification: Class II. Anesthetic Preoperative Plan: Anesthesia General. Regional Adductor Canal Block Left.[facility]hillComment on above:Result Comment: Electronically Signed By: Urbano MENDEZ)Cyrus\.br\Date and Time Signed: 04/23/23 07:41 ESTU BetaHcg Qualon 09-61-0566VQP.beta subunit (U) [Moles/Vol]NegativeNoGalion Community HospitalComment on above:Performed By: #### [id number] ####[facility] [address] [place], [place] [address]Wjlatmt for Procedure/Surgery on 25-60-1524Ojptsha for Procedure/Surgery [id number]#1.00TIFFDiley Ridge Medical Center w/ Auto Diffon 05-10-9879Rhkosyde Absolute0.0 E9/LNormal0.0-0.2FClinton Memorial HospitalComment on above:Performed By: #### [id number] ####[facility] [address] [place], [place] [address]Hdvgdbbrm/100 WBC (Bld)0.4 %Normal0.0-2.0[facility] System GlenbeighComment on above:Performed By: #### [id number] ####[facility] [address] [place], [place] [address]Gfg Absolute0.1 E9/LNormal0.0-0.5FClinton Memorial HospitalComment on above:Performed By: #### [id number] ####[facility] [address] [address]Rljugcatpot/100 WBC (Bld)1.0 %Normal0.0-8.0[facility] System GlenbeighComment on above:Performed By: #### [id number] ####[facility] [address] [address]Bmmdaxgieyr distribution width (RBC) [Ratio]12.6 %Lleyoa66.9-14.2FClinton Memorial Hospital Comment on above:Performed By: #### [id number] ####[address] [address]Mmgudnqyqa (Bld) [Volume fraction] 39.0 %Joqsun14.0-46.0[facility] System GlenbeighComment on above:Performed By: #### [id number] ####[address] [address]Jcnjyowgwj (Bld) [Mass/Vol]13.1 g/eOXulqke50.0-16.0[facility] System GlenbeighComment on above:Performed By: #### [id number] ####[address] [address]Mdxue Absolute1.4 E9/LNormal 1.0-4.0[facility] System GlenbeighComment on above:Performed By: #### [id number] ####[address] [address] Lymphocytes/100 WBC (Bld)22.2 %Qtojvm81.0-50.0[facility] System GlenbeighComment on above:Performed By: #### [id number] ####[facility] [address] [address]ORE (RBC) [Entitic mass]30.6 pgNormal 27.0-34.0[facility] System GlenbeighComment on above:Performed By: #### [id number] ####[facility] [address] [address]HBUC (RBC) [Mass/Vol]33.7 g/sTJbdvyf83.4-36.0[facility] System GlenbeighComment on above:Performed By: #### [id number] ####[place] [address] [address]UES (RBC) [Entitic vol]91.0 eMXvpnmq65.0-100.0 [facility] System GlenbeighComment on above:Performed By: #### [id number] ####[place] [address] [address]Lsif Absolute0.4 E9/LNormal0.2-1.0[facility] System GlenbeighComment on above: Performed By: #### [id number] ####[address] [address]Whkpvrkdh/100 WBC (Bld)5.6 %Normal4.0-14.0[facility] System GlenbeighComment on above:Performed By: #### [id number] ####[address] [address]Dipqmh Absolute4.6 E9/LNormal2.0-7.5FClinton Memorial HospitalComment on above:Performed By: #### [id number] ####[address] [address]Wcfevx Auto70.8 %Bmaofi09.0-75.0[facility] System GlenbeighComment on above:Performed By: #### [id number] ####[address] [address]Mjronngi704.0 E9/GQsmely048.0-500.0[facility] System GlenbeighComment on above:Performed By: #### 1453587 ####[address] [address]Zbewhskx mean volume (Bld) [Entitic vol]7.7 fLNormal6.4-10.8[facility] System GlenbeighComment on above:Performed By: #### [id number] ####[facility] [address], [place] [address]UNG0.3 E12/LNormal4.3-5.9[facility] System GlenbeighComment on above:Performed By: #### [id number] ####[facility] [address] [place], [place] [address]XTD1.5 E9/LNormal4.0-11.0 [facility] System GlenbeighComment on above:Performed By: #### [id number] ####[facility] [address] [place] [address] Consent for Treatmenton 42-10-8981Kbywfqb for Treatment [id number]#1.00TIFFNormalAcmc Healthcare System GlenbeighHEMATOLOGYOrdered By: SYSTEM SYSTEM on 65-68-2644Jwjebddb Absolute0.0 E9/L Normal0.0 - 0.2 E9/LRemisol HemeBasophils/100 WBC (Bld)0.4 %Normal0.0 - 2.0 % Remisol HemeEos Absolute0.1 E9/LNormal0.0 - 0.5 E9/LRemisol HemeEosinophils/100 WBC (Bld)1.0 %Normal0.0 - 8.0 %Remisol HemeErythrocyte distribution width (RBC) [Ratio]12.6 %Wifpog11.9 - 14.2 %Remisol HemeHematocrit (Bld) [Volume fraction] 39.0 %Njbpjt43.0 - 46.0 %Remisol HemeHemoglobin (Bld) [Mass/Vol]13.1 g/dLNormal 12.0 - 16.0 gm/dLRemisol HemeLymph Absolute1.4 E9/LNormal1.0 - 4.0 E9/LRemisol HemeLymphocytes/100 WBC (Bld)22.2 %Fmshxy67.0 - 50.0 %Remisol HemeMCH (RBC) [Entitic mass]30.6 ffTngrxi85.0 - 34.0 pgRemisol HemeMCHC (RBC) [Mass/Vol]33.7 g/mNVascyl31.4 - 36.0 gm/dLRemisol HemeMCV (RBC) [Entitic vol]91.0 dPQdjqov22.0 - 100.0 fLRemisol HemeMono Absolute0.4 E9/LNormal0.2 - 1.0 E9/LRemisol Heme Monocytes/100 WBC (Bld)5.6 %Normal4.0 - 14.0 %Remisol HemeNeutro Absolute4.6 E9/LNormal2.0 - 7.5 E9/LRemisol HemeNeutro Auto70.8 %Qzyqwa25.0 - 75.0 %Remisol ZgriNnwmqoso734.0 E9/KEzhdur279.0 - 500.0 E9/LRemisol HemePlatelet mean volume (Bld) [Entitic vol]7.7 fLNormal6.4 - 10.8 fLRemisol HemeRBC4.3 E12/LNormal4.3 - 5.9 E12/LRemisol HemeWBC6.5 E9/LNormal4.0 - 11.0 E9/LRemisol HemeCOVID/FLU/RSV RT-PCRon 45-37-6013ODUS-CoV-2 (COVID-19) RNA QUEENIE+probe Ql (Unsp spec)Negative [facility] Other COVID/FLU/RSV RT-PCRNegativeEnoree [employer] Other quick Strepon 04-01-2023S. pyogenes Org specific cx Ql (Throat)NegativeEnoree [employer] Other quick [employer] Other US Gallbladderon 29-46-5215UC GallbladderClinical History: Right upper quadrant pain. Diarrhea. [...] and signed by Cornelius Hernandez on 07/23/2022 1043NormalNortmountain vista medical centern University Hospitals Ahuja Medical CenterOG PANEL 2: to 29on 05-09-2022..NormalThe [facility] on above:Performed By: #### [id number] #### [facility] [address] [place] [address] Dr. Yovanny Kelly Gdln ACOG Aczgpxz57-21BkuuaoGrnEast [facility] Regional Hospital on above:Performed By: #### [id number] #### [facility] [address] [address] [address] Yovanny VillegasDIAGNOSIS:CommentKettering Health Main Campus on above: Result Comment: NEGATIVE FOR INTRAEPITHELIAL LESION OR MALIGNANCY.Performed By: #### [id number] #### [facility] [address] [place] [address] Dr. Yovanny VillegasMethodology:CommentKettering Health Main Campus on above: Result Comment: This liquid based ThinPrep(R) pap test was screened with the use of an image guided system.Performed By: #### [id number] #### [facility] [address] [place] [address] Dr. Yovanny VillegasNote:CommentKettering Health Main Campus on above:Result Comment: The Pap smear is a screening test designed to aid in the detection of premalignant and malignant conditions of the uterine cervix. It is not a diagnostic procedure and should not be used as the sole means of detecting cervical cancer. Both false-positive and false-negative reports do occur. .Performed By: #### [id number] #### [facility] [address] [address] [address] Yovanny VillegasPerformed by:CommentKettering Health Main Campus on above: Result Comment: Deedee Navarrete, Wood Treating Inspector (ASCP)Performed By: #### [id number] #### [facility] [address] [place] [address] Dr. Yovanny VillegasReflex Criteria:CommentNormalThe Alba HospitalComment on above:Result Comment: The HPV DNA reflex criteria were not met with this specimen result therefore, no HPV testing was performed. .Performed By: #### [id number] #### [facility] [address] [place] [address] Dr. Yovanny Anthony adequacy:CommentNoVeterans Health AdministrationComment on above:Result Comment: Satisfactory for evaluation. Endocervical and/or squamous metaplastic cells (endocervical component) are present.Performed By: #### [id number] #### [facility] [address] [place] [address] Dr. Yovanny VillegasCHLAMYDIA/GONOCOCCUS QUEENIE (SWAB/URINE/PAPon 24-03-2173Togsperdc trachomatis, NAANegativeNormalNegativeMorrow County HospitalComment on above: Performed By: #### CT/NGNA #### [facility] [address] [place] [address] Dr. Yovanny VillegasNeisseria gonorrhoeae, NAANegativeNormalNegativeMorrow County HospitalComment on above:Performed By: #### CT/NGNA #### [facility] [address] [place] [address] Dr. Yovanny VillegasVAGINITIS/VAGINOSIS DNA PROBEon 29-39-9224Helgcrx speciesNegative NormalNegativeMorrow County HospitalComment on above:Performed By: #### VAGINT #### [facility] [address] [place] [address] Dr. Yovanny VillegasGardnerella vaginalisNegativeNormalNegativeMorrow County Hospital Comment on above:Performed By: #### VAGINT #### [facility] [address] [place] [address] Dr. Yovanny VillegasTrichomonas vaginalisNegativermalNegativeMorrow County Hospital Comment on above:Performed By: #### VAGINT #### [facility] [address] [place] [address] Dr. Yovanny VillegasXR KNEE LEFT (3 VIEWS)on 73-73-8724YH KNEE LEFT (3 VIEWS) EXAMINATION: THREE XRAY [...] Signed by: Deshaun Aguilar MD 05/24/21 Final resultNormalHolzer HospitalNo fracture or dislocation. [facility] CONSOLIDATEDEXAMINATION: THREE XRAY VIEWS OF THE LEFT KNEE 05/24/2021 8:48 pm COMPARISON: None. HISTORY: ORDERING SYSTEM PROVIDED HISTORY: pain eval occult bony injury TECHNOLOGIST PROVIDED HISTORY: pain eval occult bony injury FINDINGS: No fracture, dislocation, or focal osseous lesion is noted. No significant soft tissue abnormality seen. [facility] Deshaun Bejarano MD - 05/24/2021 EXAMINATION: THREE XRAY VIEWS OF THE LEFT KNEE 05/24/2021 8:48 pm COMPARISON: None. HISTORY: ORDERING SYSTEM PROVIDED HISTORY: pain eval occult bony injury TECHNOLOGIST PROVIDED HISTORY: pain eval occult bony injury FINDINGS: No fracture, dislocation, or focal osseous lesion is noted. No significant soft tissue abnormality seen. IMPRESSION: No fracture or dislocation. [employer] Phone: radiology Study observation (narrative)[employer] Phone: XR KNEE LEFT (3 VIEWS)Ordered By: Deshaun Aguilar on 41-51-4094[facility] Work Phone: COVID Quick Testingon 05-24-6228SsxfyaTpwcfphaTidnf [employer] Other Quick Strepon 05-01-2021. pyogenes Org specific cx Ql (Throat)PositiveEnoree [employer] Other Quick StrepNowestern [facility] [employer] Other COVID Quick Testingon 91-62-9403BdynlxEmytmbnxDihai [employer] Other Qunbi Fluon 71-85-9420UTPRM Ab CF (S) [Titer]Negative [place] [employer] Other FLUBV Ab CF (S) [Titer]NegativeNoBryn Mawr Hospital [facility]icians [facility] Other XR SACRUM COCCYX (MIN 2 VIEWS)on 38-75-3683HZ SACRUM COCCYX (MIN 2 VIEWS)EXAMINATION: THREE XRAY VIEWS OF THE SACRUM/COCCYX 12/14/2020 3:10 am COMPARISON: None. HISTORY: ORDERING SYSTEM PROVIDED HISTORY: fall at work - hit hkwql6et TECHNOLOGIST PROVIDED HISTORY: fall at work - hit lmswy0xa FINDINGS: The sacroiliac joints are normally aligned. The visualized portions the pelvis are. There is no fracture of the sacrum or coccyx evident. IMPRESSION: No acute osseous abnormality of the sacrum or coccyx evident. Interpreted by: Loc Oswald MD Signed by: Loc Oswald MD 12/14/20 Final resultNormalMerNorwalk HospitalXR SACRUM COCCYX (MIN 2 VIEWS)Ordered By: David Dominguez on 48-16-5230Dt acute osseous abnormality of the sacrum or coccyx evident.[employer] Work Phone: eXAMINATION: THREE XRAY VIEWS OF THE SACRUM/COCCYX 12/14/2020 3:10 am COMPARISON: None. HISTORY: ORDERING SYSTEM PROVIDED HISTORY: fall at work - hit isdki3wy TECHNOLOGIST PROVIDED HISTORY: fall at work - hit tbiya8qu FINDINGS: The sacroiliac joints are normally aligned. The visualized portions the pelvis are. There is no fracture of the sacrum or coccyx evident. [employer] Work Phone: e, [facility] Incoming Radiant Results From [employer] - 12/14/2020 3:24 AM EDT EXAMINATION: THREE XRAY VIEWS OF THE SACRUM/COCCYX 12/14/2020 3:10 am COMPARISON: None. HISTORY: ORDERING SYSTEM PROVIDED HISTORY: fall at work - hit [id number] TECHNOLOGIST PROVIDED HISTORY: fall at work - hit rpvod3ng FINDINGS: The sacroiliac joints are normally aligned. The visualized portions the pelvis are. There is no fracture of the sacrum or coccyx evident. IMPRESSION: No acute osseous abnormality of the sacrum or coccyx evident. [employer] Work Phone: Holzer HospitalRPI ([employer]) Work Phone: ct HEAD WO CONTRASTon 88-64-2990UN HEAD WO CONTRAST EXAMINATION: CT OF THE [...] by: Maira Cruz MD 09/19/20 Final resultNormalHolzer Medical Center – Jackson Head WO ContrastOrdered By: Luis Carlos Fragoso on 76-63-5469Oerdejtejmcn noncontrast CT examination of the brain.[employer] Phone: eXAMINATION: CT OF THE HEAD WITHOUT [...] abnormality of the visualized skull or soft tissues.[employer] Phone: edi, [facility] Incoming Radiant Results From [employer] - 09/19/2020 4:42 PM EDT EXAMINATION: CT [...] Unremarkable noncontrast CT examination of the brain. [employer] Phone: Holzer HospitalExec Phone: coding Summaryon 45-31-2844Jvvqjp SummaryCODING DATE: 10/27/2019 [facility] STATUS: Home PAYOR: [facility] ADMIT DX: REASON FOR VISIT [...] Pablo Date Saved: 10/27/2019 03:10 [facility]2019 Novel Coronavirus (CoVID-19), QUEENIE LCon 26-72-4291ECWT-CoV-2, QUEENIE (COVID-19) LCNot DetectedNot German HospitalComment on above:Order Comment: [id number] Comment: This test was developed and its performance characteristics determined by [employer]. This test has not been FDA cleared [...] detected) result in this assay. Performed At: [facility] [address] [facility], [place] [id number] Ruba Washburn MD Ph:[phone] By: #### [id number] #### [facility] (DEFAULT) [address] [place] [address]Detthen Formson 74-09-1298Msvmmji Forms [id number]#1.00OTGTChildren's Hospital for Rehabilitation on 85-95-6652QDIMQcpytj TextToll Free: [phone]/cancer [facility] [address] [place] [address]Qywxx: [phone]: [facility] [address] [place], [place] [address]Gyetk: [phone]: [facility] Centerk[address] [place], [place] [address]Ucfdc: [phone]: Steve Pablo M.D., Ronaldo Marquez M.D.David Becerril M.D.Papito Sood D.O..Myriam Chaudhari M.D.Deandre Montoya M.D. Matthew Huff M.D.Date: July 15, 2017Re: Aleta Elliott WHOM IT MAY CONCERN:She was seen in our office today.Sincerely,Katelin Cardona PSR(signed electronically to expedite mailing)[facility] Flower HospitalCNOVSPon [id number] (SP) Office ([place]MAC[place]) --------ALETA GARAY ([id number]) 89 FDate Time Provider Department07/15/17 3:15 PM [...] nourishedNeuro: Gait normal.Collected: 05/15/17 104 3Resulting lab: [facility] LABORATORYValue: (NOTE)Comment: Performing Pathologist: Jo-Ann [...] list. no changes .Referring Provider: DAVID BECERRIL [[id number]]Allergies As of Date: 07/15/2017(No Known Allergies)Date Reviewed: [...] .Encounter Status:Closed by DAVID BECERRIL MD on 07/17/17[facility] 27-75-6106MQAEGXHNCQP ID: [id number]: David Escaleraervice: (none)Author Type: PhysicianType: Progress NotesFiled: [...] well nourishedNeuro: Gait normal.Collected: 05/15/17 1043Resulting lab: [facility] LABORATORYValue: (NOTE)Comment: Performing Pathologist: Jo-Ann [...] issues certainly could consider further testingAlfred Kavon BaroneProMedica Defiance Regional HospitalPlatelet Func Scrnon 98-57-2616MRH/ADP Qtypwourj03 CT (sec) Normal<118[facility] on above:Result Comment: Results are reported as Closure Time (CT) in seconds.Performed By: #### PLTSCP ####[place] [address], [place] [phone]/EPI Hsqohklnl912 CT (sec)Normal<199CleMar[facility] on above:Result Comment: Results are reported as Closure Time (CT) in seconds. Performed By: #### PLTSCP ####[facility] [address]vjkptbiw[address] AveCChristmas, [place] [phone] Func Scr Interp(NOTE)NormalPomerene Hospital on above:Result Comment: Performing Pathologist: Jo-Ann [...] a bleeding disorder. Performed By: #### PLTSCP ####[address] [place], [place] [phone] CBCDIF (for [facility] use only)on 84-36-2935Apb Baso<0.03Normal<0.11[facility] on above: Performed By: #### EVANDF ####[place] [address], [place] [phone] Mono0.53 k/uLNormal<0.87[facility] on above:Performed By: #### EVANDF ####[place] [address], [place] [phone] Neut2.59 k/uL Normal1.45-7.50[facility] on above:Performed By: #### EVANDF ####[address], [place] [phone]/100 WBC Auto (Bld)0.4 %NormalPomerene Hospital on above:Performed By: #### EVANDF ####[address] Av[address], [place] [phone] DiffNormal [facility] on above:Performed By: #### EVANDF ####[address] [phone] 10*3/uLNormal<0.46[facility] on above:Performed By: #### EVANDF ####[place] [address], [place] [phone]/100 leukocytes1.5 %Normal [facility] on above:Performed By: #### EVANDF ####[address] Av[address], [place] [phone] distribution width Auto Ratio (RBC)12.2 %Qherex98.5-15.0 [facility] on above:Performed By: #### RACHEL ####[address] Av[address], [place] [phone] (RBC)4.15 10*6/uLNormal3.90-5.20[facility] Comment on above:Performed By: #### RCBCDF ####[address], [place] [phone] (RBC)0.0 /100 WBCNormal 0[facility] Medical Centerment on above:Performed By: #### RCBCDF ####[address] Av[address], [place] [phone] (RBC)10*6/uLNormal<0.01[facility] on above:Performed By: #### RCBCDF ####[address] [phone] (HCT)39.4 %Pvryhr28.0-46.0 [facility] - DublinComment on above:Performed By: #### RCBCDF ####[address] [phone] mass conc (Bld)12.8 g/lBRweown85.5-15.5CAultman [facility] Hospital on above:Performed By: #### RCBCDF ####[address] [phone] 10*3/uLNormal1.00-4.00[facility] on above:Performed By: #### RCBCDF ####[address] [phone]/100 imnrvuncul97.9 %NormalPomerene Hospital on above:Performed By: #### RCBCDF ####[address] [phone] pGNormal 26.0-34.0[facility] on above:Performed By: #### CHONBCDF ####[place] [phone] mass conc (RBC)32.5 g/fFLipudl52.5-36.0[facility] Comment on above:Performed By: #### EVANDF ####[place] [phone] sHJvuqim28.0-100.0[facility] on above:Performed By: #### EVANDF ####[place] [phone]/100 emjflvxljx90.6 %NormalPomerene Hospital on above:Performed By: #### EVANDF ####[place] [phone]/100 WBC Auto (Bld)56.6 %NormalPomerene Hospital on above:Performed By: #### CHONBCDF ####[place] [phone] mean volume (PMV)10.2 fLNormal9.0-12.7CAultman [facility] Hospital on above:Performed By: #### CHONBCDF ####[place] [phone] 10*3/vOJaeufv420-917BddhfcgtjSelect [facility] Comment on above:Performed By: #### EVANDF ####[place] [phone] (Leukocytes)4.58 10*3/uLNormal 3.70-11.00[facility] on above:Performed By: #### EVANDF ####[address] [place], [place] [phone] 96-20-8124YWWCTxkmnm TextToll Free: [phone]/cancer [email or web address] - Xgpqbbwg[address] [place]Brace[place], [place] [address]Wrrhw: [phone]: [facility] Bqg[address] [place], [place] [address]Jcpep: [phone]: [facility] Rvolmyj[address] [place], [place] [address]Lqksy: [phone]: Steve Pablo M.D., Jonna Castro M.D.Papito Sood D.O..Carin Hoover M.D. FACROSaju A. Rajan, M.D.Date: April 29, 2017Re: Aleta RuizvipulSKYLER WHOM IT MAY CONCERN:She was seen in our office today.Sincerely,Karly Pizarro Psr(signed electronically to expedite mailing)[facility] HospitalCNOVSPon [id number] (SP) Office (HEMACL) --------BEVVIPULSUMMER ([id number]) 99 FDate Time Provider Department04/29/17 2:30 PM [...] patientand her mother at length. Would check [id number] at this time, further testingbased on results.1. [...] (HCC) [D69.1]Order(s):PLATELET FUNCTION SCREEN [SQPLTSCP] Order #: [id number] FUTURE CBC + DIFF (FOR REMOTE [facility] USE) [SQRCBCDF] Order #: [id number] FUTUREDisposition: Return in about 6 weeks (around [...] Status:Closed by DAVID BECERRIL MD on 04/29/17Normal [facility] DublinPROGRESSon 27-27-3768WLADYTUMQKC ID: [id number]: David Escaleraervice: (none)Author Type: PhysicianType: Progress NotesFiled: [...] and her mother at length. Would check QKT894 at this time, furthertesting based on results.1. 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, choice of management likely to be influenced by history ofPOTSAlfred Chery Barone [facility] Vital Signs Date TimeVital SignValuePerforming YylkwzuflLhbrejkh06-69-3737 14:02-0500Body mass index (BMI) [Ratio]30 kg/m2Pretty ARELLANO Work Phone: [facility] HospitalVpqmglzqnr58-12-8091 14:02-0500Body uhaboh81.29 kgPretty ARELLANO Work Phone: [facility] HospitalWkpugozphz92-84-8718 14:02-0500Diastolic blood snepkerr15 mm[Hg]Pretty ARELLANO Work Phone: [facility] HospitalWpmcflabgg12-64-2348 14:02-0500Systolic blood vrfcayns83 mm[Hg]Pretty ARELLANO Work Phone: [phone])775-[address] [place], [place] [address]Ouimkvrhgs87-75-3440 13:04-0400Body mass index (BMI) [Ratio]29.59 kg/q3Yavxo William DO Work Phone: [phone])708-[address] [place], [place] [address]Fhytsrwstp43-31-3654 13:04-0400Body krqynz61.2 kg Doc William DO Work Phone: 1(084)[facility] [place], [place] [address]Jymqzchqug41-33-3011 13:04-0400Diastolic blood wlfyhtwn06 mm[Hg]Doc William DO Work Phone: 1(340)[facility] [place], [place] [address]Ztfxymffky40-49-6585 13:04-0400Systolic blood mm[Hg]Doc William DO Work Phone: 1(159)[facility] [place], [place] [address]Cqkcezietg54-47-7839 13:57-0400Body mass index (BMI) [Ratio]29.42 kg/g6VakohghsLuna Steen [employer] Work Phone: 1(383)[address] [place], [place] 3860610-08-2025 13:57-0400Body .75 kgLuna Steen [employer] Work Phone: 1(390)[facility] [place], [place] [address]Neplkbgzxd02-10-8774 13:57-0400Diastolic blood xfaacndr89 mm[Hg]Luna Steen [employer] Work Phone: 1(625)[facility] [place], [place] [address]Gymwxolgtq23-39-1847 13:57-0400Systolic blood xizqsfcg269 mm[Hg]Luna Steen [employer] Work Phone: 1(632)[address] [place], [place] 3860609-24-2025 14:07-0400Body mass index (BMI) [Ratio]28.84 kg/f6Tzsak William DO Work Phone: 1(856)[facility] [place], [place] [address]Gbaxiajhqb45-47-4067 14:07-0400Body bifxbx94.2 kg Doc William DO Work Phone: 1(656)[facility] [place], [place] [address]Uagysvjryn36-11-1159 14:07-0400Diastolic blood jvitjytf64 mm[Hg]Doc William DO Work Phone: 1(156)[facility] [place], [place] [address]Uugxqmzyvc86-89-7230 14:07-0400Systolic blood mm[Hg]Doc William DO Work Phone: [phone])123-[address] [place], [place] [address]Eljailtazh52-23-6439 14:04-0400Body mass index (BMI) [Ratio]29.95 kg/n6Xysdyhaw Enio [employer] Work Phone: 1(820)320-[facility] HospitalNlfloxdisk51-22-3139 14:04-0400Body qvuxfn20.15 kgLuna Enio [employer] Work Phone: 1(317)611-[address] [place], [place] [address]Vsgkprcicf50-60-9158 14:04-0400Diastolic blood ehpwnggf71 mm[Hg]Luna Enio [employer] Work Phone: 1(926)706-[address] [place], [place] [address]Gkqjiwhory69-20-0221 14:04-0400Systolic blood qrpfzygv701 mm[Hg]Luna Enio [employer] Work Phone: 1(504)989-[address] [place], [place] [address]Gvipfphsao30-38-3196 14:39-0400Body mass index (BMI) [Ratio]28.49 kg/m2Pretty Chaidez PA Work Phone: 1(843)614-[address] [place], [place] [address]Jyxjstdozv54-19-0976 14:39-0400Body uoeqkb33.3 kg Pretty Chaidez PA Work Phone: [phone])592-[address] [place], [place] [address]Izyppfyazx61-48-5200 14:39-0400Diastolic blood jumagras90 mm[Hg]Pretty Chaidez PA Work Phone: 1(855)363-[address] [place], [place] [address]Bnsvdmmcov19-81-5212 14:39-0400Systolic blood iwcsbhae505 mm[Hg]Pretty Chaidez PA Work Phone: 1(280)498-[address] [place], [place] [address]Jcxunnnxdy66-87-2931 15:34-0400Body mass index (BMI) [Ratio]28.29 kg/s8Nkawu William DO Work Phone: 1(378)728-[address] [place], [place] [address]Lxkjhzzhld08-07-2640 15:34-0400Body iaqmts20.75 kgCorey William DO Work Phone: 1(792)315-[facility]ParkSelect Specialty HospitalYbntwudyal57-55-9353 15:34-0400Diastolic blood mm[Hg]Doc William DO Work Phone: 1(596)483-[address] [place] [address]-16-2025 15:34-0400Systolic blood waxxzhzb937 mm[Hg]Doc William DO Work Phone: [facility] HospitalFwocsmgkpn68-91-0244 14:27-0400Body mass index (BMI) [Ratio]30.21 kg/j5Xapto William DO Work Phone: [facility] HospitalKpytzagwvi67-83-1245 14:27-0400Body lcexqc49.83 kgCorey William DO Work Phone: 1(406)729-[address] [place], [place] [address]Unxrwbqnst64-04-9512 14:27-0400Diastolic blood chhomysr00 mm[Hg]Doc William DO Work Phone: [facility] HospitalEhaembezfl65-52-5649 14:27-0400Systolic blood ywlmfinr552 mm[Hg]Doc William DO Work Phone: [facility] HospitalXcfhhulrlb77-40-1420 15:41-0500Body iljrvu725.6 cmDavid Pocos DO Work Phone: [facility] HospitalPqvwofwejo66-67-3104 15:41-0500Body mass index (BMI) [Ratio]30.21 kg/u9Irrii Pocos DO Work Phone: [facility] HospitalObphoijsxd00-50-0017 15:41-0500Body pbpnfi82.83 kgDavid Pocos DO Work Phone: [facility] HospitalWvbakcwzvz00-31-3651 15:26-0500Body cwlipu252.6 cmEtyshawn Payne MD Work Phone: [facility] HospitalNzlwqwwxmn21-37-0781 15:26-0500Body mass index (BMI) [Ratio]30.21 kg/i8MaxfngRosalie Payne MD Work Phone: [facility] HospitalOzgbinbvgm40-20-7965 15:26-0500Body iumfpz18.83 kgRosalie Payne MD Work Phone: [facility] HospitalZmlchlunho26-95-8445 15:26-0500Heart rate88 /min Rosalie Payne MD Work Phone: [facility] HospitalNrviyulhgm93-17-8681 15:26-4225BwQ9% (BldA) [Mass fraction]98 %Rosalie Payne MD Work Phone: [facility] HospitalFmyjsvmeov60-37-3346 08:00-0400Body ejuofe893.6 cmKelvin Schwartz DO Work Phone: [facility] HospitalUozideuojd52-68-0480 08:00-0400Body mass index (BMI) [Ratio]30.9 kg/i3PywpoKelvin Schwartz DO Work Phone: [facility] HospitalDciilnpfum97-62-6801 08:00-0400Body cveyou41.65 kgKelvin Schwartz DO Work Phone: [facility] HospitalCytfimmmjo48-51-5429 14:25-0400Diastolic blood mm[Hg]MD Rosalie Payne Work Phone: [phone]06-17-2024 14:25-0400 Heart rate80 /minMD Rosalie Payne Work Phone: 1(765)[address] [place], [place] 6223406-17-2024 14:25-0400 Respiratory rate18 /minMD Rosalie Payne Work Phone: 1(379)[address] [place], [place] 6223406-17-2024 14:25-0400 SaO2% (BldA) [Mass fraction]100 %MD Rosalie Payne Work Phone: 1(774)[address] [place], [place] 6223406-17-2024 14:25-0400 Systolic blood akntsqnj022 mm[Hg]MD Rosalie Payne Work Phone: 1(771)[facility] [place], [place] 7243306-17-2024 11:31-0400 Body nedlzl952.1 cmMD Rosalie Payne Work Phone: 1(452)[address] [place], [place] 6223406-17-2024 11:31-0400 Body nkhzkpruwxy55.4 [degF]MD Rosalie Payne Work Phone: 1(048)[address] [place], [place] 6223406-17-2024 11:31-0400 Body .11 kg Rosalie Payne Work Phone: 1(226)[address] [place], [place] 6223405-09-2024 14:21-0400 Body hzfusu986.1 cmProm[facility]05-09-2024 14:21-0400Body mass index (BMI) [Ratio]28.3 kg/l6QcqpplchgPromedica Toledo Hospital05-09-2024 14:0400Body .11 kgPromedica [facility] Hospital05-09-2024 14:-0400Diastolic blood atjhches80 mm[Hg][facility] 07-25-2023 14:21-0400Heart rate81 /minPromedica [facility] Hospital 07-25-2023 14:-0400Systolic blood vwcubzub637 mm[Hg][facility]01-17-2024 14:55-0500Diastolic blood qofsjoit73 mm[Hg]Myron Marroquin [address]01-17-2024 14:55-0500Heart ffdc578 /minDavid Daniel [address]01-17-2024 14:55-0500Mean blood rwzuwsyy334 mm[Hg]Myron Marroquin [address]01-17-2024 14:55-0500 Systolic blood dqavhegc418 mm[Hg]Myron Marroquin [address]01-17-2024 14:53-0500Heart rate98 /minDavid Vaniaos [address] [place], [place] 2622801-17-2024 14:53-6297FnK8% (BldA) [Mass fraction]99 %Myron Marroquin [address] [place], [place] [address]22801-17-2024 14:53-0500 Diastolic blood fmsewvyd83 mm[Hg]Myron Marroquin [address]01-17-2024 14:53-0500Mean blood mm[Hg]Myron Marroquin [address]01-17-2024 14:53-0500 Systolic blood mm[Hg]Myron Pocos [facility]01-17-2024 14:52-0500 Respiratory rate16 /minDavid Pocos [facility]01-15-2024 10:45-0500Body xfyvyg438.1 cmAmanda Kristine Other [employer] Other 01-15-2024 10:45-0500Body mass index (BMI) [Ratio] 28.29 kg/f0Kywhbw Kristine Other [employer] Other 01-15-2024 10:45-0500Body wawljrfivzs82.1 [degF]Destinee Kristine Other [employer] Other 01-15-2024 10:45-0500Body ljytog27.11 kgAmanda Kristine Other [facility] Other 01-15-2024 10:45-0500Respiratory rate18 /minAmanda Kristine Other [employer] Other 01-15-2024 10:45-5471AqA6% (BldA) [Mass fraction]99 % Destinee Kristine Other [employer] Other 06-06-2022 11:25-0400Body lqancl583.1 cmPamela Martha Other [employer] Other 06-06-2022 11:25-0400Body mass index (BMI) [Ratio] 27.12 kg/f9Wjolyk Martha Other [employer] Other 06-06-2022 11:25-0400Body wmlwkbrvsqo11.6 [degF]Carlie Thomas Other [facility] [employer] Other 06-06-2022 11:25-0400Body ijxsxc43.94 kgCarlie Thomas Other [facility] [employer] Other 06-06-2022 11:25-0400Respiratory rate18 /minCarlie Thomas Other [facility] [employer] Other 06-06-2022 11:25-9180MyK2% (BldA) [Mass fraction]97 % Carlie Thomas Other [facility] [employer] Other 03-09-2022 20:36-0500Body zqsamgvjuuc12.7 [degF]Artis Yoder DO Work Phone: [facility]Bnivza25-17-5383 20:36-0500Diastolic blood nqwfqeko76 mm[Hg]Artis Yoder DO Work Phone: [facility])Vazpwf21-23-7687 20:36-0500Heart nlsb823 /min Artis Yoder DO Work Phone: [facility])Rhrioh43-06-5758 20:36-0500Respiratory rate16 /minArtis Yoder DO Work Phone: [facility])Nzllrq47-65-1664 20:36-9480VyP3% (BldA) [Mass fraction]97 %Artis Herithad DO Work Phone: [facility])Ombqrv36-14-7315 20:36-0500Systolic blood fwcxwrmy949 mm[Hg]Artis Yoder DO Work Phone: [facility])Lzaufe54-23-2552 13:10-0500Body yimjnv446.1 cm Adriana Evangelista Other [facility] [employer] Other 02-24-2022 13:10-0500Body mass index (BMI) [Ratio] 27.12 kg/r7Paozesykz Jean Carlos Other [employer] Other 02-24-2022 13:10-0500Body mwbndkfecmb64.8 [degF] Adriana Garciaault Other [employer] Other 02-24-2022 13:10-0500Body eaepha40.94 kgStjen Evangelista Other [employer] Other 02-24-2022 13:10-0500Diastolic blood jssryblv61 mm[Hg] Adriana Garciaault Other [employer] Other 02-24-2022 13:10-0500Respiratory rate18 /minSfeliz Garciaault Other [employer] Other 02-24-2022 13:10-2513XyJ1% (BldA) [Mass fraction]99 % Adriana Garciaault Other [employer] Other 02-24-2022 13:10-0500Systolic blood zzoszcag615 mm[Hg] Adriana Jean Carlos Other [employer] Other 02-14-2022 11:40-0500Body .1 cmPamelsridhar Thomas Other [employer] Other 02-14-2022 11:40-0500Body mass index (BMI) [Ratio] 26.62 kg/o9Cuwaqs Martha Other [employer] Other 02-14-2022 11:40-0500Body murszutryjx65.6 [degF]Carlie Thomas Other [employer] Other 02-14-2022 11:40-0500Body ohcqla17.58 kgCarlie Thomas Other [employer] Other 02-14-2022 11:40-0500Respiratory rate18 /minCarlie Thomas Other [employer] Other 02-14-2022 11:40-9461DjR6% (BldA) [Mass fraction]99 % Carlie Thomas Other [employer] Other 01-21-2022 12:00-0500Body nlmyys203.1 cmCreyes Ashley Other [employer] Other 01-21-2022 12:00-0500Body mass index (BMI) [Ratio] 26.62 kg/s2KzhlygSandeep Ramirez Other [employer] Other 01-21-2022 12:00-0500Body eqjzwzqcbya47.6 [degF]Sandeep Ramirez Other [employer] Other 01-21-2022 12:00-0500Body ufsqat09.58 kgSandeep Ramirez Other [employer] Other 01-21-2022 12:00-5058HkI1% (BldA) [Mass fraction]98 % Sandeep Ramirez Other [employer] Other 09-28-2021 23:25-0400Diastolic blood iusudeyk51 mm[Hg] David Dominguez MD Work Phone: [facility] [employer] Work Phone: 1(539) 911-425909-28-2021 23:25-0400Systolic blood kccbxdvi150 mm[Hg] David Dominguez MD Work Phone: [phone] [employer] Work Phone: 1(628) 311-725009-28-2021 23:23-0400Body moqofv432.1 Mira Dominguez MD Work Phone: [facility] [employer] Work Phone: 1(910)266-462177-09529266-22-3797 23:23-0400Body mass index (BMI) [Ratio] 26.63 kg/v1VvuvaqiDavid Dominguez MD Work Phone: [phone] [employer] Work Phone: 1(933) 760-849009-28-2021 23:23-0400Body ejaejkwbdkk48.29 [degF] David Dominguez MD Work Phone: [facility] [employer] Work Phone: 1(505) 673-604309-28-2021 23:23-0400Body aqfwoa41.58 kgDavid Dominguez MD Work Phone: [facility] [employer] Work Phone: 1(769) 524-666209-28-2021 23:23-0400Heart rate79 /Sharon Dominguez MD Work Phone: [phone] [employer] Work Phone: 1(439) 946-744709-28-2021 23:23-0400Respiratory rate14 /Sharon Dominguez MD Work Phone: [facility] [employer] Work Phone: 1(329) 420-720509-28-2021 23:23-1619IoM8% (BldA) [Mass fraction]99 % David Dominguez MD Work Phone: [facility] [employer] Work Phone: 1(466) 487-595307-05-2021 15:56-0400Body .6 [degF][facility] [employer] Work Phone: 1(873) 689-922807-05-2021 15:56-0400Diastolic blood mmeogaal31 mm[Hg] [employer] Work Phone: 1(623) 633-925607-05-2021 15:56-0400Heart mdlk197 /minW[employer] and the Gang Work Phone: 1(624) 114-218607-05-2021 15:56-0400Respiratory rate16 /minW[employer] Work Phone: 1(675) 727-190807-05-2021 15:56-6827RcF1% (BldA) [Mass fraction]100 % [employer] Work Phone: 1(478) 938-882907-05-2021 15:56-0400Systolic blood swkvwryy459 mm[Hg] [employer] Work Phone: Encounters Encounter DateEncounter TypeCare ProviderFacilityStart: 01-23-2025 End: 41-18-2762Hxpmpghze Result EncounterCorey William DO Work Phone: [facility] External Department UnsolicitedStart: 01-23-2025 End: 96-67-8031Rlzujzrif Result EncounterCorey William DO Work Phone: [facility] External Department UnsolicitedStart: 01-20-2025 End: 55-94-6865Fgdugg Herson ARELLANO Work Phone: [facility] [place] [facility]YNStart: 01-20-2025 End: 29-57-6081Kbpaci Herson ARELLANO Work Phone: [facility] [place] [facility]BGYNStart: 01-20-2025 End: 32-78-8317Cwoxmyhwq Result EncounterCorey William DO Work Phone: [facility] External Department UnsolicitedStart: 01-20-2025 End: 35-56-3985Itdslnnk flow Arsenio ARELLANO Work Phone: [facility] [facility]BGYNComment on above:Third trimester ([facility]); 35 weeks gestation of ([facility])Start: 01-20-2025 End: 92-77-5107zjzmuqaluqGNJ RAMEYNot AvailableStart: 01-11-2025 End: 70-95-7864Rwzlsfrdi Result EncounterCorey William DO Work Phone: [facility] External Department UnsolicitedStart: 01-11-2025 End: 84-94-2699Rqbsgtelh Result EncounterCorey William DO Work Phone: [facility] External Department UnsolicitedStart: 01-05-2025 End: 94-81-3555Npbcmb flowsheetCorey William DO Work Phone: [facility] [place] [facility]YNStart: 01-05-2025 End: 76-62-7355Qtjbgf flowsheetCorey William DO Work Phone: [facility] [place] [facility]YNStart: 01-05-2025 End: 90-16-2202Qivzkkwz flow sheetCorey William DO Work Phone: [facility] [place] [facility]BGYNComment on above:Third trimester ([facility]); 33 weeks gestation of ([facility])Start: 01-05-2025 End: 49-11-8651gbbkdzvacpKKDQS FAZIONot AvailableStart: 01-02-2025 End: 60-79-7914Vgliphiwu Result EncounterGeneric External Data ProviderNOMS External Department UnsolicitedStart: 01-02-2025 End: 30-85-5474Wfthphqrp Result EncounterGeneric External Data ProviderNOMS External Department UnsolicitedStart: 12-26-2024 End: 36-40-0970Ssywtryjk Result EncounterGeneric External Data ProviderNOMS External Department UnsolicitedStart: 12-26-2024 End: 53-53-1806Ovkzlzvnf Result EncounterGeneric External Data ProviderNOMS External Department UnsolicitedStart: 12-23-2024 End: 59-72-3592Gxupzt Cody Steen NP Work Phone: [facility] [place] [facility]BGYNStart: 12-23-2024 End: 04-93-5376Xlxsvb Cody Steen NP Work Phone: [facility] [place] OBGYNStart: 12-23-2024 End: 33-11-4967Hugkthjx flow sheetLuna Steen POULTRY DEBEAKER Work Phone: N[facility] [place] OBGYNComment on above:Third trimester ([facility]); 31 weeks gestation of ([facility])Start: 12-23-2024 End: 02-01-5882uxadjuxgfnMJPVEDPC EBERLYNot AvailableStart: 12-09-2024 End: 79-64-6289Tfccsx flowsheetCorey William DO Work Phone: [facility] [place] [facility]BGYNStart: 12-09-2024 End: 26-62-1712Wxkrpw flowsheetCorey William DO Work Phone: [facility] [place] [facility]BGYNStart: 12-09-2024 End: 18-71-6949Cejgqzlt flow sheetCorey William DO Work Phone: [facility] [place] OBGYNComment on above:Third trimester ([facility]); 29 weeks gestation of ([facility]); Yeast infectionStart: 12-09-2024 End: 31-78-3944euiknrostlKAFJF FAZIONot AvailableStart: 11-27-2024 End: 23-12-1543gltrmxzkogCYQFLMercy Health Lorain Hospitaltart: 11-25-2024 End: 76-06-1469Ihzjsn Cody Steen POULTRY DEBEAKER Work Phone: [facility] [place] [facility]BGYNStart: 11-25-2024 End: 00-02-3234Gxwcuj flowsRuss Steen POULTRY DEBEAKER Work Phone: [facility] [place] OBGYNStart: 11-25-2024 End: 02-65-0466Sdecrtgz flow sheetLuna Steen POULTRY DEBEAKER Work Phone: N[facility]S [place] OBGYNComment on above:Second trimester ([facility]); 27 weeks gestation of ([facility]); Evan's diseaseStart: 11-25-2024 End: 17-64-7954bizuufucjgVTTEKFKX EBERLYNot AvailableStart: 11-24-2024 End: 22-78-6462Ktwtvykxn Result EncounterGeneric External Data ProviderNOMS External Department UnsolicitedStart: 11-24-2024 End: 53-14-5016Ntjtnmxva Result EncounterGeneric External Data ProviderNOMS External Department UnsolicitedStart: 11-12-2024 End: 00-33-1712Lxfltyxzs Result EncounterGeneric External Data ProviderNOMS External Department UnsolicitedStart: 11-12-2024 End: 10-30-1476Rrfzaqoyv Result EncounterGeneric External Data ProviderNOMS External Department UnsolicitedStart: 11-03-2024 End: 60-45-5144Izqhrtrjd Result EncounterGeneric External Data ProviderNOMS External Department UnsolicitedStart: 11-03-2024 End: 93-44-4611Imvaohirg Result EncounterGeneric External Data ProviderNOMS External Department UnsolicitedStart: 10-28-2024 End: 50-92-5163Jsokuza encounter procedurePretty ARELLANO Work Phone: NOMS HealthcareStart: 10-28-2024 End: 27-27-6870Zurwjons flow Arsenio ARELLANO Work Phone: [facility] [place] OBGYNComment on above:Second trimester ([facility]); 23 weeks gestation of ([facility]); Diabetes mellitus screening; STD exposure; Well woman exam with routine gynecological exam; Heart palpitationsStart: 10-28-2024 End: 63-40-1195rzilalzchjETO RAMEYNot AvailableStart: 10-28-2024 End: 51-41-4226Gitsgf Herson ARELLANO Work Phone: noMS [place] OBGYNStart: 10-28-2024 End: 10-97-4389Qefcwu Herson ARELLANO Work Phone: [facility] [place] OBGYNStart: 10-28-2024 End: 73-69-6473Kxiehowdm Result EncounterGeneric External Data ProviderNOMS External Department UnsolicitedStart: 10-28-2024 End: 46-63-8696Ivvtmcxz Result EncounterKrselene Enio POULTRY DEBEAKER Work Phone: noms External Department UnsolicitedStart: 10-06-2024 End: 63-19-0810Jquryswvs Result EncounterCorey William DO Work Phone: noms External Department UnsolicitedStart: 10-06-2024 End: 28-24-7483Wamwlyqpy Result EncounterCorey William DO Work Phone: [facility] External Department UnsolicitedStart: 09-30-2024 End: 31-77-3353Ndrqjdex flow sheetCorey William DO Work Phone: noms BCP OBComment on above:19 weeks gestation of ([facility]); Second trimester ([facility])Start: 09-30-2024 End: 99-57-6016tizjkfivchTWWWO FAZIONot AvailableStart: 09-28-2024 End: 20-60-8228Pghujonob Result EncounterGeneric External Data ProviderNOMS External Department UnsolicitedStart: 09-28-2024 End: 88-94-3624Rdhbiwuux Result EncounterGeneric External Data ProviderNOMS External Department UnsolicitedStart: 09-02-2024 End: 13-98-5727Ixecpcip flow Arsenio ARELLANO Work Phone: noms BCP OBComment on above:Second trimester ([facility]); 15 weeks gestation of ([facility]); Screening, , for anatomic survey ([facility])Start: 09-02-2024 End: 15-90-0379zdsnnkaikoLRV RAMEYNot AvailableStart: 09-02-2024 End: 91-00-3135Vvsegf Herson ARELLANO Work Phone: NOMS BCP OBStart: 09-02-2024 End: 84-50-5910Xjxewx Herson ARELLANO Work Phone: NOMS BCP OBStart: 08-31-2024 End: 69-57-0933Rdhwnrtjm Result EncounterCorey William DO Work Phone: noms External Department UnsolicitedStart: 08-31-2024 End: 03-56-4294Ylqrhrwjr Result EncounterCorey William DO Work Phone: noms External Department UnsolicitedStart: 08-05-2024 End: 19-90-7065Xqfris flowsheetCorey William DO Work Phone: noms BCP OBStart: 08-05-2024 End: 69-67-8751Gefded flowsheetCorey William DO Work Phone: noms BCP OBStart: 08-05-2024 End: 95-57-1636Vqlotuxp flow sheetCorey William DO Work Phone: noms BCP OBComment on above:First trimester ; 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 ; 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)Start: 08-05-2024 End: 00-37-0369fimlpvvynuFUGYL FAZIONot AvailableStart: 07-18-2024 End: 19-20-4145Dxzhuslbi Result EncounterGeneric External Data ProviderNOMS External Department UnsolicitedStart: 07-18-2024 End: 88-82-2755Vguxwqdug Result EncounterGeneric External Data ProviderNOMS External Department UnsolicitedStart: 07-16-2024 End: 43-76-0592Xlorjj outpatient visit 5 minutesNoms Bcp Ob William NurseNOMS BCP OBComment on above:GA: 2v9iKiiil: 07-16-2024 End: 89-58-3556kkfewyfcblPREQF FAZIONot AvailableStart: 02-26-2024 End: 72-18-2822Xeuhoqp encounter procedureDavid A Pocos DO Work Phone: noms NB ORTHOComment on above:S/P reconstruction of ACL of left knee using bone-patellar tendon-bone autograft (Primary Dx)Start: 02-26-2024 End: 07-61-6857obgmuzrtfuEEOPJ A POCOSNot AvailableStart: 02-19-2024 End: 65-62-1900Bvtuvh outpatient visit 25 minutesEdjay Payne MD Work Phone: NOMS CI FM 100Comment on above:Subclinical hypothyroidism (CMS/HCC) (Primary Dx); 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CMS/HCC); Cigarette smoker; Non morbid obesity due to excess calories; Postural orthostatic tachycardia syndrome (POTS); Abnormal bleeding in menstrual cycleStart: 02-19-2024 End: 85-30-2470uljqerzezlBAKCXOCristal Parisi AvailableStart: 02-19-2024 End: 34-69-3757Shphyv Rodriguez Payne MD Work Phone: NOMS CI FM 100Start: 02-19-2024 End: 52-63-2889Fqiwwx Rodriguez Payne MD Work Phone: NOMS CI FM 100Start: 12-27-2023 End: 54-24-0493mxeqervjjaWita J Spriggs PT Work Phone: NOMS FB PTComment on above:Acute pain of left knee (Primary Dx); Status post arthroscopic reconstruction of anterior cruciate ligament of left knee using quadricepstendon autograftStart: 12-27-2023 End: 33-98-0113Morozc Za Nagy PT Work Phone: NOMS FB PTStart: 12-27-2023 End: 50-63-9283Vcyhbe Za Nagy PT Work Phone: NOOK FB PTStart: 12-24-2023 End: 59-59-0782erdcidjjubHcwifdll Wright BAND NAILER Work Phone: NOMS FB PTComment on above:Acute pain of left knee (Primary Dx); Status post arthroscopic reconstruction of anterior cruciate ligament of left knee using quadricepstendon autograftStart: 12-24-2023 End: 27-38-9310Gxtndj TowerJazzkearaDomatica Global Solutionsmaribel Vieira BAND NAILER Work Phone: NOMS FB PTStart: 12-24-2023 End: 80-10-4170Zqdhoo TowerJazzkearaDomatica Global Solutionsmaribel Vieira BAND NAILER Work Phone: NOCR FB PTStart: 12-17-2023 End: 14-14-0526rhfgnostkgZcmc Pari Lilo PT Work Phone: NOMS FB PTComment on above:Acute pain of left knee (Primary Dx); Status post arthroscopic reconstruction of anterior cruciate ligament of left knee using quadricepstendon autograftStart: 12-17-2023 End: 22-35-1714Hczorz flowsheetKystuart Yañez Lilo PT Work Phone: NOMS FB PTStart: 12-17-2023 End: 23-27-2986Ghiqnn Za Yañez Lilo PT Work Phone: NOYJ FB PTStart: 12-09-2023 End: 12-87-7798Ltedmy Isabel Schwatrz DO Work Phone: NOMS SWS ORTHOAOStart: 12-09-2023 End: 90-04-2576Wzlpie Isabel Schwartz DO Work Phone: [phone] SWS ORTHOAOStart: 12-09-2023 End: 02-22-2325Ajsvadv encounter Hans Schwartz DO Work Phone: NOMS SWS ORTHOAOComment on above:Left knee injury, initial encounter (Primary Dx)Start: 12-03-2023 End: 33-73-6010ukhwmawrjwBnoplrog Vieira BAND NAILER Work Phone: NOMS FB PTComment on above:Acute pain of left knee (Primary Dx); Status post arthroscopic reconstruction of anterior cruciate ligament of left knee using quadricepstendon autograftStart: 12-03-2023 End: 56-22-3274Wukwqk Nikita Vieira BAND NAILER Work Phone: NOMS FB PTStart: 12-03-2023 End: 85-47-6946Pxscpe Nikita Vieira BAND NAILER Work Phone: NOMS FB PTStart: 11-19-2023 End: 82-97-2224bnmcwpjtpsIjlrhr Tattersall PTANOMS FB PTComment on above:Acute pain of left knee (Primary Dx); Status post arthroscopic reconstruction of anterior cruciate ligament of left knee using quadricepstendon autograftStart: 11-19-2023 End: 05-71-6265Fvxeyw flowsheetJennifer Tattersall PTANOMS FB PTStart: 11-19-2023 End: 30-01-6192Oyevnj flowsheetMariah Tattersall PTANOMS FB PTStart: 11-12-2023 End: 90-38-3826ozqudvccubZcpyrlyv Wright BAND NAILER Work Phone: noms FB PTComment on above:Acute pain of left knee (Primary Dx); Status post arthroscopic reconstruction of anterior cruciate ligament of left knee using quadricepstendon autograftStart: 11-12-2023 End: 68-51-5422Rudimj Nikita Vieira BAND NAILER Work Phone: noms FB PTStart: 11-12-2023 End: 14-02-3383Eufyjz TowerJazzkearaArisokobrian Vieira BAND NAILER Work Phone: noMS FB PTStart: 16-22-4133Kht-patient / Non-visitMD Rosalie Payne Work Phone: [facility] Work Phone: Start: 09-02-2023 End: 14-38-8293Kuyzvtyqf to same day surgery centerMD Rosalie Payne Work Phone: [facility] Work Phone: Start: 09-02-2023 End: 77-15-2181infnabsfxxLK Rosalie Payne Work Phone: [facility] Work Phone: Start: 07-25-2023 End: 09-62-3067cadnzguospNhvhnoybuToledo Hospital Work Phone: Start: 07-25-2023 End: 91-60-4075Qwrfxuc encounter procedureSophie Physician Group[facility] Work Phone: Start: 04-23-2023 End: 89-12-4599moobvgobqpGfxas A PocosFacility:FTMCStart: 52-53-1971Tiwuo Jennifer Nagy PT Work Phone: noms FB PTStart: 04-03-2023 End: 16-77-4218otjcyuexfbVhsvu A PocosFacility:FTMCStart: 04-03-2023 End: 61-26-4578Qmhnyzw encounter procedureDavid A Pocos [facility] Start: 04-01-2023 End: 02-50-7056wjzlvwlehaBspeqa Kristine Other [employer] Other Start: 09-25-9880Xvqvpg outpatient visit 15 minutes Destinee GrobFPG Urgent Care ClydeStart: 05-01-2022 End: 24-04-7956bkoceybbnwEN DOC WILLIAM .Facility:Z4Ajswu: 08-21-2021 End: 38-11-6845ogpgpgfhrrWthlsd Dymond Other [place] [employer] [place] Other Start: 90-97-9384Kvvxnt outpatient visit 15 minutes Carlie ThomasFPG Urgent Care ClydeStart: 07-26-2021 End: 51-31-3844lxgkfnggopXT DOC WILLIAM .Facility:U0Wznmb: 31-17-3990Vcnuytmam department patient visitARTIS YODERGlenbeigh Hospitaltart: 05-24-2021 End: 67-76-5142Petnyjyss department patient visitArtis Yoder DO Work Phone: [facility] EDComment on above:Contusion of left knee, initial encounter (Primary Dx)Start: 05-11-2021 End: 67-14-4750yzcblpqyzdFjxlkpvzv Breault [facility] [employer] Other Start: 60-14-8154Jncqcu outpatient visit 15 minutes Adriana EvangelistaFPG Urgent Care ClydeStart: 05-01-2021(URG) Urgent Care Visit Carlie ThomasFPG Urgent Care ClydeStart: 05-01-2021 End: 38-47-4464pfssxgjotuMhuvxf Dymond Other nort [employer] [place] Other Start: 04-07-2021 End: 67-17-7238flizhslbhrMbmxht Ashley Other [facility] [employer] Other Start: 88-45-0004Ytruai outpatient visit 15 minutes Sandeep RamirezFPG Urgent Care ClydeStart: 12-14-2020 End: 53-66-5550Hzeurnvbr department patient visitCIPRIAN RANDAdena Regional Medical Centertart: 12-14-2020 End: 14-64-8593Hthspsglu department patient visitCiprian Frankie MURRIETA Work Phone: [facility] EDComment on above:Tailbone injury, initial encounter (Primary Dx)Start: 09-19-2020 End: 95-40-5989Zxwpjbrqe department patient visitHolzer Hospital EDComment on above:Closed head injury, initial encounter (Primary Dx)Start: 07-15-2017 End: 90-11-6324TdhomzgzlbEUEGSU P VARGASCProMedica [facility] Hospital: 05-15-2017 End: 01-52-8481VveqbuzbdoPZCTFY P VARGASCohiohealth southeastern medical centerand [facility]: 04-30-2017 End: 75-89-7598MvahzgyleqQLVCZO P VARGASCohiohealth southeastern medical centerand [facility]: 04-29-2017 End: 49-44-4758LnvgqoriehGIJNAE P VARGASCProMedica Memorial Hospital: 03-13-2017 End: 95-16-2904PcccbledwfAGFYZ MCKENZIE PABLOFacility:[facility] Procedures DateProcedureProcedure DetailPerforming ClinicianStart: 57-39-7388HS OB BPP W NON-STRESSCorey William DO Work Phone: Start: 95-35-5151STR THYROID STIM HORMONECorey William DO Work Phone: Start: 23-02-0537CG OB BPP W NON-STRESSCorey William DO Work Phone: Start: 89-79-0355Vufxz dip stick/tablet rgnt non-auto w/o micrscpAmy Dm ARELLANO Work Phone: Start: 60-15-4726PM OB BPP W NON-STRESSCorey William DO Work Phone: Start: 43-59-4239Twptu dip stick/tablet rgnt non-auto w/o micrscpCorey William DO Work Phone: Start: 04-38-5092OB OB BPP W NON-STRESSGeneric External Data ProviderStart: 71-64-0254QH OB GROWTHGeneric External Data ProviderStart: 00-21-1961AX OB BPP W NON-STRESSGeneric External Data ProviderStart: 51-80-5669TTU THYROID STIM HORMONECorey William DO Work Phone: Start: 72-57-3037Atsat dip stick/tablet rgnt non-auto w/o micrscpKristina Enio POULTRY DEBEAKER Work Phone: Start: 52-08-2663Zknnv dip stick/tablet rgnt non-auto w/o micrscpCorey William DO Work Phone: Start: 53-52-5385Jockv dip stick/tablet rgnt non-auto w/o micrscpKristina Enio POULTRY DEBEAKER Work Phone: Start: 14-33-3951FF ECHO DOPPLER COMPLETEGeneric External Data ProviderStart: 81-47-8733CPD 12-LEADGeneric External Data Provider Start: 89-98-9872IEK CBC WITH AUTO DIFFKristina Enio POULTRY DEBEAKER Work Phone: Start: 56-56-5556EIIZUDWYN VAGINITIS (HTRX)Luna Enio POULTRY DEBEAKER Work Phone: Start: 39-97-2219Ipzac dip stick/tablet rgnt non-auto w/o micrscpLuna Conraderly POULTRY DEBEAKER Work Phone: Start: 47-50-8022QJJ,APTIMA HPV,AGE GDLNAmy Dm PA Work Phone: Start: 18-21-7611YN OB CERVICAL LENGTHCorey William DO Work Phone: Start: 44-09-4623Citsy dip stick/tablet rgnt non-auto w/o micrscpCorey William DO Work Phone: Start: 37-16-7243OZH THYROID STIM HORMONECorey William DO Work Phone: Start: 95-13-9971Eiqcn dip stick/tablet rgnt non-auto w/o micrscpAmy Dm ARELLANO Work Phone: Start: 30-82-7031PYX THYROID STIM HORMONEGeneric External Data ProviderStart: 43-70-9849Pmmtf dip stick/tablet rgnt non-auto w/o micrscpCorey William DO Work Phone: Start: 95-70-4787IWH TESTCorey William DO Work Phone: Start: 83-30-7644UZY DRUG SCREEN RAPID (URINE)Generic External Data ProviderStart: 31-08-5475Uhrec dip stick/tablet rgnt non-auto w/o micrscpCorey William DO Work Phone: Start: 65-45-9728Otlnxzpx blood count with white cell differential, automatedRosalie Payne MD Work Phone: Start: 07-53-7044Qnlysxxtavbxh metabolic panelRosalie Payne MD Work Phone: Start: 65-96-6176Pakyeqsxbqmyf antibodyEdjay Payne MD Work Phone: Start: 40-99-4585NtrduorgmvnopyqvcttttletseCG Rosalie Payne Work Phone: Start: 00-91-3950Fystmmx of reconstruction of anterior cruciate ligament tearStatus post arthroscopic reconstruction of anterior cruciate ligament of left knee using quadricepstendon autograftGretchen Vieira BAND NAILER Work Phone: Start: 06-24-5097Cidugmhrvx examination knee 3 views Artis Yoder DO Work Phone: Start: 95-23-3289Zfodt sacrum & coccyx minimum 2 views David Dominguez MD Work Phone: Start: 78-12-5842By head/brain w/o contrast material Luis Carlos Fragoso [...] of left knee using quadricepstendon autograftGretchen Vieira BAND NAILER Work Phone: History of reconstruction of anterior cruciate ligament tearStatus post arthroscopic reconstruction of anterior cruciate ligament of left knee using quadricepstendon autograftKyle J Lilo PT Work Phone: History of reconstruction of anterior cruciate ligament tearStatus post arthroscopic reconstruction of anterior cruciate ligament of left knee using quadricepstendon autograftGretchen Vieira BAND NAILER Work Phone: History of reconstruction of anterior cruciate ligament tearStatus post arthroscopic reconstruction of anterior cruciate ligament of left knee using quadricepstendon autograftGretchen Vieira BAND NAILER Work Phone: History of reconstruction of anterior cruciate ligament tearStatus post arthroscopic reconstruction of anterior cruciate ligament of left knee using quadricepstendon autograftMariah Tattersall BAND NAILER Laparoscopic excision of cyst of left ovaryDavid Pocos Plan of Treatment DateCare ActivityDetailAuthorStart: 74-97-3113Zbufbwywn vaccinationInfluenza Vaccine (#1)NOMS HealthcareComment on above:Postponed from 11/16/2024 (Patient Refused)Start: 01-27-2025 End: 85-29-8286Ilycsew encounter nddxpeaip71/12/2025 1:40 PM EST Routine [facility] [address] [facility] [id number] Doc Thomas DO [address] [place] [address] [facility] [place] [facility]BGYNStart: 01-20-2025 End: 56-95-8478Qiivpuz encounter procedureNOMS [place] OBGYNComment on above: ArrivedStart: 01-05-2025 End: 22-83-1955Iujrayr encounter procedureNOMS [place] OBGYNComment on above: ArrivedStart: 12-23-2024 End: 26-34-7638Qwvptao encounter procedureNOMS [place] OBGYNComment on above: ArrivedStart: 12-23-2024 End: 30-83-1962Lopovvgeifsx / ancillary services /08/2025 1:30 PM EDT Ancillary Procedure [facility] [address] [place] [phone] [facility] [place] [facility]BGYNStart: 12-09-2024 End: 82-55-8514Pmdafph encounter procedureNOMS [place] OBGYNComment on above: ArrivedStart: 11-25-2024 End: 43-29-5857NO biophysical profile w non stress testUS biophysical profile w non stress test Imaging Routine 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), Expires: 05/25/2025[facility] Work Phone: comment on above:Expected: 11/25/2024 (Approximate), Expires: 05/25/2025Start: 11-25-2024 End: 46-75-9441CM for pregnancyUS OB follow up transabdominal approach Imaging Routine Evan's disease Expected: 11/25/2024, Expires: 03/27/2025NOMS HealthcareComment on above:Expected: 11/25/2024, Expires: 03/27/2025Start: 11-25-2024 End: 07-08-9027Wotnefc encounter procedureNOMS Alba OBGYNComment on above: ArrivedStart: 41-10-6412XOULN-19 Vaccine ()COVID-19 Vaccine ()NOMS HealthcareStart: 80-24-2899Jlaqpulnn vaccinationNOMS HealthcareStart: 10-28-2024 End: 87-46-7305Lmameiz encounter procedureNOMS BCP OBComment on above:Arrived Start: 10-28-2024 End: lead ECGECG 12 lead unit performed ECG Routine Heart palpitations Expected: 10/28/2024 (Approximate), Expires: 10/28/2025NONV HealthcareComment on above:Expected: 10/28/2024 (Approximate), Expires: 10/28/2025Start: 10-28-2024 End: 76-71-7116IIT panel - Blood by Automated countCBC Lab Routine Diabetes mellitus screening Expected: 10/28/2024 (Approximate), Expires: 10/28/2025[facility] Work Phone: comment on above:Expected: 10/28/2024 (Approximate), Expires: 10/28/2025Start: 10-28-2024 End: 14-55-1464Fsahbfvvcimzfz 2D completeEchocardiogram 2D complete Echocardiography Routine Heart palpitations Expected: 10/28/2024 (Approximate), Expires: 10/28/2026NONV HealthcareComment on above:Expected: 10/28/2024 (Approximate), Expires: 10/28/2026Start: 10-28-2024 End: 50-86-8617Ybgayofhvan of glucose 1 hour after glucose challenge for glucose tolerance testGlucose tolerance, 1 hour Lab Routine Diabetes mellitus screening Expected: 10/28/2024 (Approximate), Expires: 10/28/2025NOMS HealthcareComment on above:Expected: 10/28/2024 (Approximate), Expires: 10/28/2025Start: 09-30-2024 End: 70-63-8097Vafrddq encounter oastylojx54/16/2025 3:40 PM EDT Routine [facility] [address] [facility] [place] [id number] Doc Thomas, DO [address] [place], [place] [address] [place] [place], [place] [id number] NOMS BCP OBStart: 09-30-2024 End: 52-98-9458Xwsdodzglerx / ancillary services bunbriisfv20/16/2025 2:30 PM EDT Ancillary Procedure [facility] [address] [place] [address] NOMS BCP OBStart: 09-02-2024 End: 29-11-0346Qqsbwbc encounter procedureNONV BCP OBComment on above:Arrived Start: 09-02-2024 End: 55-34-8066Cefqe fetoprotein, maternalAlpha fetoprotein, maternal Lab Routine Second trimester ([facility]) Expected: 09/02/2024 (Approximate), Expires: 11/02/2024NONV HealthcareComment on above:Expected: 09/02/2024 (Approximate), Expires: 11/02/2024Start: 09-02-2024 End: 82-44-4523AO for pregnancyUS OB 14+ weeks anatomy scan Imaging Routine Screening, , for anatomic survey ([facility]) Expected: 09/02/2024, Expires: 12/03/2024NONV Healthcare Work Phone: comment on above:Expected: 09/02/2024, Expires: 12/03/2024Start: 08-05-2024 End: 46-19-5071Vbbshrx encounter procedureNONV BCP OBComment on above:Arrived Start: 07-16-2024 End: 44-98-3776XRX/RhABO/Rh Lab Routine Missed menses , unspecified gestational age Expected: 07/16/2024 (Approximate), Expires: 07/16/2025NONV HealthcareComment on above:Expected: 07/16/2024 (Approximate), Expires: 07/16/2025Start: 07-16-2024 End: 93-71-3095Hhhdy type and Indirect antibody screen panel - BloodType and screen Lab Routine Missed menses , unspecified gestational age Expected: 07/16/2024 (Approximate), Expires: 07/16/2025NONV HealthcareComment on above:Expected: 07/16/2024 (Approximate), Expires: 07/16/2025Start: 07-16-2024 End: 09-62-6499Ewdvj of abuse panel - Urine by Screen methodRapid drug screen, urine Lab Routine , unspecified gestational age Encounter for supervision of normal first in first trimester Expected: 07/16/2024 (Approximate), Expires: 07/16/2025NONV HealthcareComment on above:Expected: 07/16/2024 (Approximate), Expires: 07/16/2025Start: 07-10-2024 End: 41-90-3338IL Pelvis transvaginalUS OB transvaginal Imaging Routine Missed menses Expected: 07/10/2024, Expires: 10/09/2024[facility] Work Phone: comment on above:Expected: 07/10/2024, Expires: 10/09/2024Start: 02-21-2024 End: 94-11-8011Ccvxrby encounter yexgucsrf14/06/2024 8:00 AM EST Office Visit [facility] [address] [place] [place] [address] Myron Marroquin DO [address] [place] [address] NOMS SWS ORTHOAOStart: 02-19-2024 End: 93-41-3027Tgfsgdp encounter paesmtmzt17/04/2024 3:30 PM EST Office Visit [facility] 100 [address] [facility] [address] [place] [address] Rosalie Payne MD [address] [facility] [address] [place] [address] (Fax) 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CMS/HCC); Chronic fatigue; Cigarette smoker; Non morbid obesity due to excess caloriesNOMS CI FM 100Comment on above: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CMS/HCC); Chronic fatigue; Cigarette smoker; Non morbid obesity due to excess caloriesStart: 02-19-2024 End: 68-74-7385Bfwstdl, randomInsulin, random Lab Routine Non morbid obesity due to excess calories Postural orthostatic tachycardia syndrome (POTS) Expected: 02/19/2024 (Approximate), Expires: 02/18/2025NONV Healthcare Work Phone: Comment on above:Expected: 02/19/2024 (Approximate), Expires: 02/18/2025Start: 01-17-2024 End: 01-63-9098bahkgvjjuz80/01/2024 2:30 PM EDT Treatment [facility] [address] [place] [phone] Stefano Nagy, PT [address] [place] [address] NOMS FB PTStart: 01-14-2024 End: 20-25-5089wtqmaqkqqv28/29/2024 3:30 PM EDT Treatment [facility] PT [address] [place] [phone] Nereyda Vieira, BAND NAILER [address] [place] [address] NOMS FB PTStart: 01-10-2024 End: 87-31-6810lmrhuxvyeb74/25/2024 2:30 PM EDT Treatment [facility] PT [address] [place] [phone] Stefano Nagy, PT [address] [place] [address] NOMS FB PTStart: 01-07-2024 End: 20-83-6181edqfgjlenu66/22/2024 3:30 PM EDT Treatment [facility] FB PT [address] [place] [phone] Stefano Nagy, PT [address] [place] [address] NOMS FB PTStart: 01-03-2024 End: 01-54-3564nwletoohsk77/18/2024 2:30 PM EDT Treatment [facility]S FB PT [address] [place] [phone] Stefano Nagy, PT [address] [place] [address] NOMS FB PTStart: 12-31-2023 End: 09-38-4086xudctmjfpg80/15/2024 3:30 PM EDT Treatment NOMS FB PT [address] [place] [phone] Jennifer Dozier PTANOMS FB PTStart: 12-27-2023 End: 90-94-1017anacvagykrCHQQ FB PTComment on above:ArrivedStart: 12-24-2023 End: 89-74-2059xjkohomzzi16/08/2024 3:00 PM EDT Treatment N[facility]S FB PT [address] [place] [phone] Nereyda Vieira, BAND NAILER [address] [place] [address] NOMS FB PTStart: 12-17-2023 End: 52-57-9157mizxfhfanp90/01/2024 3:00 PM EDT Treatment [facility] FB PT [address] [place] [phone] Stefano Nagy, PT [address] [place] [address] NOMS FB PTStart: 12-09-2023 End: 46-14-2418Negyxgt encounter procedureNOMS [facility] ORTHOAOComment on above: ArrivedStart: 12-03-2023 End: 19-50-0096fpyvkxccvu67/17/2024 3:30 PM EDT Treatment [facility] FB PT [address] [place] [address] Angela Vieiratchen, BAND NAILER [address] [place] [address] ArrivedNOMS FB PT Comment on above:ArrivedStart: 11-19-2023 End: 60-76-0982ewhdasqzvcWEWA FB PTComment on above:Acute pain of left knee (Primary Dx); Status post arthroscopic reconstruction of anterior cruciate ligament of left knee using quadricepstendon autograftStart: 93-64-3921Fhncdoenp vaccination Influenza Vaccine (#1)[facility] HealthcareStart: 77-27-7929WrtxhaortFlower Hospitaltart: 05-07-2023 End: 12-23-2706Lndaqfa encounter tpettqlug84/20/2024 11:10 AM EST Office Visit [facility] [address] [place] [phone] Doc Thomas, DO [address] [place] [address] NOMS BCP OBStart: 05-03-2023 End: 55-67-2572Djkvrjt encounter /16/2024 11:00 AM EST Office Visit [facility] ORTHOAO [address] [place] [phone] Myron Marroquin, DO [address] [place] [address] NOMS SWS ORTHOAOStart: 04-23-2023 End: 15-02-2792Ewfrsth encounter cvtkzysqs84/06/2024 8:00 AM EST Procedure Visit NOMS EXT Myron Huerta, DO [address] [place] [address] NOMS EXT DEPStart: 04-22-2023 End: 88-13-9196artsccavlr81/05/2024 2:30 PM EST Evaluation NOMS JESENIA PT [address] [place] [address] Stefano Nagy, PT [address] [place] [address] NOMS FB PTStart: 61-91-5240Jrpzlnqhm vaccinationInfluenza Vaccine (#1)[facility] HospitalStart: 21-45-1637ZMlG/Tdap/Td vaccine (5 - Td or Tdap)DTaP/Tdap/Td vaccine (5 - Td or Tdap)[facility] HospitalStart: 74-25-9637Stljnckie vaccinationFlu vaccine (#1)[facility] HospitalStart: 67-07-4950Jseryfmqy for malignant neoplasm of cervixK[facility] Start: 03-33-6098NXmR/Tdap/Td vaccine (1 - Tdap)DTaP/Tdap/Td vaccine (1 - Tdap) [facility] Work Phone: start: 67-40-8449Vhrclniykyny Vaccine: Pediatrics (0 to 5 Years) and At-Risk Patients (6 to 64 Years) (1 of 2 - PCV)Pneumococcal Vaccine: Pediatrics (0 to 5 Years) and At-Risk Patients (6 to 64 Years) (1 of 2 - PCV)[facility] HospitalStart: 62-97-0901Vwedhjtxg for Chlamydia trachomatis Chlamydia screenKettering [facility] HealthStart: 93-45-5502RXQ screeningHIV screenKettering Health – [facility] Center Health Start: 17-80-2859Qkiajexcc vaccine (2 of 2 - 2-dose childhood series)Varicella vaccine (2 of 2 - 2-dose childhood series)[facility] HospitalStart: 79-39-5615QPSJC-19 Vaccine (1)COVID-19 Vaccine (1)[employer] Phone: start: 62-44-1730Ekhebugbpv ScreenDepression Screen [facility]: 53-23-1060XUY vaccine (1 - 2-dose series)HPV vaccine (1 - 2- dose series)[facility]: 22-97-8465NISLY-19 Vaccine (1)COVID-19 Vaccine (1)[facility]: 88-68-8496Cdglyyibl vaccine (1 of 2 - 2-dose childhood series)Varicella vaccine (1 of 2 - 2-dose childhood series)[facility] Phone: start: 57-86-4953Hoeaamlpb C screeningHepatitis C screenMercy HealthBacteria identified in Urine by CultureUrine culture Microbiology Routine Missed menses Ordered: 07/16/2024[facility] HealthcareComment on above:Ordered: 07/16/2024BC W Auto Differential panel - BloodCBC and differential Lab Routine Missed menses , unspecified gestational age Ordered: 07/16/2024[facility] HealthcareComment on above:Ordered: 07/16/2024HLAMYDIA TRACHOMATIS (GENITO/STI)CHLAMYDIA TRACHOMATIS (GENITO/STI) Lab Routine STD exposure Ordered: 10/28/2024[facility] HealthcareComment on above:Ordered: 10/28/2024 Cytology Cervical or vaginal smear or scraping studyPap Smear Pathology and Cytology Routine Well woman exam with routine gynecological exam Ordered: [facility] HealthcareComment on above:Ordered: 10/28/2024Hemoglobin A1c/Hemoglobin.total in BloodHemoglobin A1c Lab Routine Missed menses , unspecified gestational age Ordered: 07/16/2024[facility] HealthcareComment on above: Ordered: 07/16/2024Hepatitis B virus surface Ag [Presence] in Serum or Plasma by ImmunoassayHepatitis B surface antigen Lab Routine Missed menses , unspecified gestational age Ordered: 07/16/2024[facility] HealthcareComment on above: Ordered: 07/16/2024Hepatitis C virus Ab [Presence] in Serum or Plasma by ImmunoassayHepatitis C antibody Lab Routine Missed menses , unspecified gestational age Ordered: 07/16/2024[facility] HealthcareComment on above:Ordered: 07/16/2024HIV-1/HIV-2 antigen/antibody combination immunoassayHIV-1 and HIV-2 antibodies Lab Routine Missed menses , unspecified gestational age Ordered: 07/16/2024[facility] HealthcareComment on above:Ordered: 07/16/2024Neisseria gonorrhoeae DNA [Presence] in Unspecified specimen by QUEENIE with probe detection Neisseria gonorrhea DNA probe, direct Lab Routine STD exposure Ordered: 10/28/2024[facility] HealthcareComment on above:Ordered: 10/28/2024Patient Education Hiatal hernia Hemorrhoids Gastritis Know your [facility] Work Phone: Reagin Ab [Presence] in Serum by RPRRPR Lab Routine Missed menses , unspecified gestational age Ordered: 07/16/2024[facility] HealthcareComment on above:Ordered: 07/16/2024Rubella antibody, IgGRubella antibody, IgG Lab Routine Missed menses , unspecified gestational age Ordered: 07/16/2024[facility] HealthcareComment on above:Ordered: 07/16/2024 SURESWAB(R) ADVANCED VAGINITIS PLUS, TMASURESWAB(R) ADVANCED VAGINITIS PLUS, TMA Pathology and Cytology Routine STD exposure Ordered: 10/28/2024[facility] Healthcare Comment on above:Ordered: 10/28/2024 End: 53-22-9832Tiqovnqcxmg [Units/volume] in Serum or PlasmaTSH Lab Routine 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 starting 08/05/2024 until 08/05/2025[facility] Healthcare Work Phone: comment on above:i1ikyls for 6 Occurrences starting 08/05/2024 until 08/05/2025US Pelvis transvaginalUS OB transvaginal Imaging Routine Missed menses 07/16/2024 1:59 PM [facility] Immunizations Immunization DateImmunizationNotesCare AtxzncmgOsiqjcwr14-40-2310mxzhybbnd B vaccine, adult dosageKyle Lilo PT Work Phone: [facility] HospitalRjhfwkcsdd59-33-6459rzmmietuxyeod oligosaccharide (groups A, C, Y and W-135) diphtheria toxoid conjugate vaccine (MCV4O)Stefano Lilo PT Work Phone: [facility] HospitalZxbzohmbfv51-16-9019atrzpievo A vaccine, pediatric/adolescent dosage, 2 dose scheduleKyle Lilo PT Work Phone: [facility] HospitalKchoaknkry97-66-9801prennttmr A vaccine, pediatric/adolescent dosage, 2 dose scheduleKyle Lilo PT Work Phone: [phone] [place], [place] [address]Sotwezhnnq23-85-5376wwcjfkw toxoid, reduced diphtheria toxoid, and acellular pertussis vaccine, adsorbedKyle Lilo PT Work Phone: [facility] HospitalQpkwcqrqbq22-94-9920rcgoxycyp virus vaccineKyle Lilo PT Work Phone: [facility] HospitalWcrebspuzf34-74-2533qlkqsrzvtvh influenzae type b conjugate and Hepatitis B vaccineKyle Lilo PT Work Phone: [facility] HospitalMtfhguvtkx40-66-3420bcifypexxpa influenzae type b vaccine, HbOC conjugateKyle Lilo PT Work Phone: [facility] HospitalYkagpnwqay66-72-0845tofipgzla B vaccine, pediatric or pediatric/adolescent dosageKyle Lilo PT Work Phone: [facility] HospitalXuydxeywja90-26-4274afoqzlw, mumps and rubella virus vaccineKyle Lilo PT Work Phone: [facility] HospitalPvjjktvqns42-92-2736xbjrpgsquo vaccine, inactivatedKyle Lilo PT Work Phone: [facility] HospitalQmhhotjhht17-13-5527KSbS-Wlsxtetpupd influenzae type b conjugate vaccineKyle Lilo PT Work Phone: [facility] HospitalQwcgqyzbrt38-14-6348ndvqlrumoylb conjugate vaccine, 7 valentKyle Lilo PT Work Phone: [facility] HospitalIdrgreizqb81-63-3581adinydtfjv, tetanus toxoids and acellular pertussis vaccine, Haemophilus influenzae type b conjugate, and poliovirus vaccine, inactivated (COiT-Jog-NZQ)Stefano Lilo PT Work Phone: [facility] HospitalQnrfzvfajp99-86-4430muuxdvvgjk, tetanus toxoids and acellular pertussis vaccine, Haemophilus influenzae type b conjugate, and poliovirus vaccine, inactivated (IEtX-Jww-ICG)Stefano Nagy PT Work Phone: noNortheast Missouri Rural Health NetworkSycqfcuepr38-08-7752yvtmiatao B vaccine, pediatric or pediatric/adolescent dosageKystuart Nagy PT Work Phone: noNortheast [facility] Health NetworkNigzkopxje67-15-6560dwoahavhl B vaccine, pediatric or pediatric/adolescent dosageKystuart Nagy PT Work Phone: [facility] Payers DatePayer CategoryPayerPolicy [id number] Cross Blue [id number].[id number] Unknown1.2.840.586540.1.13.693.2.7.3.000[id number] 1.2.840.147049.1.13.239.2.7.3.715986.61724-62-9417Mqztcpu Health Insurance [id number] 2.16.840.1.971122.3.579.2. [id number] 2.16.840.1.673412.3.57[id number] 2.16.840.1.802197.3.57[id number] 2.16.840.1.367032.3.57[id number] 2.16.840.1.433941.3.57[id number] 2.16840.1.190102.3.57[id number] 2.16840.1.900734.3.579.[id number] 2.16840.1.423103.3.579.2.9[id number] 2.16840.1.001482.3.57[id number] 2.16840.1.118623.3.57[id number] 2.840.1.657598.3.57[id number] 2.840.1.836585.3.579.[id number] 2.0.1.838230.3.579.2.[id number] 2.840.1.341079.3.579.2.417291-82-0514Bhxgdvz86741515 2.840.1.762269.3.579.2.307373-55-9575Wmepmvg54329691 2.840.1.843953.3.579.2.582031-44-1392Evtorcs6180011 2.16840.1.632324.3.579.2.568762-36-5499Ubtqrgz0772951 2.16840.1.774799.3.579.2.501241-73-6566Nzzwqst9275468 2.16840.1.838664.3.579.2.762096-56-3464Yzsyphi8368388 2..840.1.318792.3.579.2.550213-26-1959Urezgbw1431073 2.16.840.1.330252.3.579.2.98032[id number] 2.0.1.641425.19 82-37-1541TwtqnlbR6YAQ2327100Injf Cross Blue [id number] [id number] 2.0.1.788149.3.579.2.531 Social History DateTypeDetailFacilityStart: 09-19-2020 End: 40-98-6587Hoigivv smoking status NHISNever smokerK[facility] [employer] Work Phone: start: 09-19-2020 End: 27-84-0060Mqqsrgo use and exposureNever usedKettering Health – Soin Medical Center English TVStart: 1999 Sex Assigned At BirthNot on [facility] [employer] Work Phone: exposure to SARS-CoV-2 (event)Not [facility] Start: 12-14-2020 End: 03-94-4812Soeajcb intakeCurrent drinker of alcohol (finding)[facility] [employer] Work Phone: start: 58-89-1692Hinbijf CommentRareMmansfield hospital [employer] Work Phone: start: 12-11-2022 End: 56-13-1198Iih Assigned At [facility] CenterTobaccoCurrent vaping or e-cigarette use Smokeless Tobacco Use:. VapingSt. Charles HospitalTobacco smoking statusNo Smoking Status EnteredMarietta Memorial Hospitaltart: 02-09-2023 End: 40-84-8108Igtuyro smoking status NHISOccasional tobacco smokerNONV HealthcareStart: 04-15-2023 End: 73-34-6880Zopxfrc intakeEx-drinker (finding)[facility] HealthcareStart: 12-11-2022 End: 39-22-8047Smqgoqd of Social functionNOMS HealthcareWithin the last year, [...] before (I/we) got money to buy more.Never trueNONV HealthcareStart: 07-05-5174Tb the past 12 months, has lack of transportation kept you from medical appointments or from getting medications?NoNOMS HealthcareStart: 21-36-1940Aztlzfmdm84HJIZ Healthcare Start: 79-24-7197Zagwahb Comment2-4 drinks per weekNONV HealthcareStart: 70-67-6884Cda Assigned At BirthFeHubbard Regional Hospital HealthcareStart: 96-67-2976Turnah identityIdentifies as female gender (finding)[facility] HealthcareStart: 07-25-2023 End: 19-27-8691Uupeehh smoking status NHISSmoker (finding)[facility] HospitalHistory of tobacco useCigarette SmokerNONV HealthcareStart: 60-68-7317YlheqnsyhAIWR Healthcare Goals DatePatient GoalDesired Activity/State Functional Status JlcmGjcojuoztkCrgrkxNfvpxbnu16-54-7346Omuooisdni StatusNoSt. Charles Hospital Clinical Notes 04-07-2021 to 01-20-2025 Note Date & QbxpKybrDugqgssk43-27-4004 History of Present illness Narrative* ADAN Gonzalez [...] Left 2019 OVARIAN CYST REMOVAL Left 05/20/2020 [employer] William VAGINAL DELIVERY REVIEW OF SYSTEMS Review [...] was 05/16/2024. Assessment/Plan ICD-10-CM 1. Third trimester ([facility]) Z34.93 2. 35 weeks gestation of ([facility]) Z3A.35 POCT urinalysis dipstick manually resulted Return [...] behalf of: ADAN Gonzalez documented in this encounterSelect Specialty HospitalAbopejwusc29-03-2323 History of Present illness Narrative* Lissette Sloane, [...] Left 2019 OVARIAN CYST REMOVAL Left 05/20/2020 [employer] William VAGINAL DELIVERY REVIEW OF SYSTEMS Review [...] nursing note reviewed. Exam conducted with a dining room attendant present. Vitals: Estimated body mass index is 29.59 kg/m as calculated from the following: Height as of 24: 5' 4 . Weight as of this encounter: 172 lb 6.4 oz. BP: 100/60 Patient's last menstrual period was 05/16/2024. Assessment/Plan ICD-10-CM 1. Third trimester ([facility]) Z34.93 2. 33 weeks gestation of ([facility]) Z3A.33 POCT urinalysis dipstick manually resulted Return [...] of: Doc Thomas DO documented in this encounterSelect Specialty HospitalXgmrwjehkm93-88-4034 History of Present illness Narrative* Luna Steen [...] Left 2019 OVARIAN CYST REMOVAL Left 05/20/2020 [employer] William VAGINAL DELIVERY REVIEW OF SYSTEMS Review [...] nursing note reviewed. Exam conducted with a dining room attendant present. Vitals: Estimated body mass index is 29.42 kg/m as calculated from the following: Height as of 02/26/24: 5' 4 . Weight as of this encounter: 171 lb 6.4 oz. BP: 110/70 Patient's last menstrual period was 05/16/2024. ASSESSMENT & PLAN ICD-10-CM 1. Third trimester ([facility]) Z34.93 2. 31 weeks gestation of ([facility]) Z3A.31 POCT urinalysis dipstick manually [...] of: Luna Steen NP documented in this encounterSelect Specialty HospitalYuyvydmazb61-33-0870 History of Present illness Narrative* Lissette Anton [...] Left 2019 OVARIAN CYST REMOVAL Left 05/20/2020 [employer] William VAGINAL DELIVERY REVIEW OF SYSTEMS Review [...] nursing note reviewed. Exam conducted with a dining room attendant present. Vitals: Estimated body mass index is 28.84 kg/m as calculated from the following: Height as of 02/26/24: 5' 4 . Weight as of this encounter: 168 lb. BP: 110/74 Patient's last menstrual period was 05/16/2024. ASSESSMENT & PLAN ICD-10-CM 1. Third trimester ([facility]) Z34.93 POCT urinalysis dipstick manually resulted 2. 29 weeks gestation of ([facility]) Z3A.29 Return OB: Patient presents today for [...] of: Doc Thomas DO documented in this encounterSelect Specialty HospitalNqnkmzagaj58-33-4872 [facility] Reason for cardiology consult: Cardiogenic syncope Chief Complaint: Syncope HPI: summer Matthew is a 24 y.o. female with history of neurocardiogenic syncope diagnosed about 6 years ago, Evan disease, chronic fatigue, overweight, anxiety/depression Patient is now 28 weeks . She reports that she was diagnosed with neurocardiogenic syncope about 6 years ago by [facility] cardiology and she was on [...] Disp: , Rfl: no.37/i (more content not included)...[facility]09-10-2025 History of Present illness Narrative* Luna [...] Left 2019 OVARIAN CYST REMOVAL Left 05/20/2020 [employer] William VAGINAL DELIVERY REVIEW OF SYSTEMS Review [...] nursing note reviewed. Exam conducted with a dining room attendant present. Vitals: Estimated body mass index is 29.95 kg/m as calculated from the following: Height as of 24: 5' 4 . Weight as of this encounter: 174 lb 8 oz. BP: 110/60 Patient's last menstrual period was 05/16/2024. ASSESSMENT & PLAN ICD-10-CM 1. Second trimester ([facility]) Z34.92 POCT urinalysis dipstick manually resulted 2. 27 weeks gestation of ([facility]) Z3A.27 3. 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 Exam conducted with a dining room attendant present. Vitals: Estimated body mass index is 28.49 kg/m as calculated from the following: Height as of 02/26/24: 5' 4 . Weight as of this encounter: 166 lb. BP: 130/80 Patient's last menstrual period was 05/16/2024. ASSESSMENT & PLAN ICD-10-CM 1. Second trimester ([facility]) Z34.92 POCT urinalysis dipstick manually resulted 2. 23 weeks gestation of ([facility]) Z3A.23 3. Diabetes mellitus screening Z13.1 CBC [...] and prior work up for palpitations with [facility]. Plan will be to continue TSH every 4 weeks, EKG and cardiac Echo and follow up with [facility] and a referral will be made she declined Metoprolol at this time. Patient is to return to office in 4 week for routine OB appointment. Documented by Luna Steen NP on behalf of: Luna Steen NP documented in this encounterSelect Specialty HospitalMywiyrdisb21-43-8703 History of Present illness Narrative* Lissette Anton [...] Left 2019 OVARIAN CYST REMOVAL Left 05/20/2020 [employer] William VAGINAL DELIVERY REVIEW OF SYSTEMS Review [...] nursing note reviewed. Exam conducted with a dining room attendant present. Vitals: Estimated body mass index is 28.29 kg/m as calculated from the following: Height as of 24: 5' 4 . Weight as of this encounter: 164 lb 12.8 oz. BP: 110/72 Patient's last menstrual period was 05/16/2024. ASSESSMENT & PLAN ICD-10-CM 1. 19 weeks gestation of ([facility]) Z3A.19 POCT urinalysis dipstick manually resulted 2. Second trimester ([facility]) Z34.92 POCT urinalysis dipstick manually resulted [...] of: Doc Thomas DO documented in this encounterSelect Specialty HospitalIqugkijxli01-27-2563 History of Present illness Narrative* Luna Steen [...] Left 2019 OVARIAN CYST REMOVAL Left 05/20/2020 [employer] William VAGINAL DELIVERY REVIEW OF SYSTEMS Review [...] nursing note reviewed. Exam conducted with a dining room attendant present. Vitals: Estimated body mass index is 30.21 kg/m as calculated from the following: Height as of 02/26/24: 5' 4 . Weight as of 08/05/24: 176 lb. BP: Patient's last menstrual period was 05/16/2024. ASSESSMENT & PLAN ICD-10-CM 1. Second trimester ([facility]) Z34.92 Alpha fetoprotein, maternal Alpha fetoprotein, maternal POCT urinalysis dipstick manually resulted 2. 15 weeks gestation of ([facility]) Z3A.15 3. Screening, , for anatomic survey ([facility]) Z36.89 US OB 14+ weeks anatomy scan [...] behalf of: ADAN Gonzalez documented in this encounterSelect Specialty HospitalUnkhkklveh97-46-0840 History of Present illness Narrative* Lissette Anton [...] Left 2019 OVARIAN CYST REMOVAL Left 05/20/2020 [employer] William VAGINAL DELIVERY REVIEW OF SYSTEMS Review [...] nursing note reviewed. Exam conducted with a dining room attendant present. Vitals: Estimated body mass index is [...] undercooked meat, and stay away from [facility]. Patient has been consulted regarding any [...] of: Doc Thomas DO documented in this encounterSelect Specialty HospitalYqifpqxgsn57-94-4369 History of Present illness Narrative* Aliya Aguilar [...] Left 2019 OVARIAN CYST REMOVAL Left 05/20/2020 [employer] William VAGINAL DELIVERY Allergies Allergen Reactions Azithromycin [...] undercooked meat, and stay away from [facility]. Patient has also been advised to [...] by: Aliya Aguilar LPN documented in this encounterSelect Specialty HospitalUfcpeytknf49-90-8167 History of Present illness Narrative* Radha Ashraf [...] Left 2019 OVARIAN CYST REMOVAL Left 05/20/2020 [employer] William VAGINAL DELIVERY FAMILY HISTORY: Family History [...] 03/02/2024 7:42 AM EST documented in this encounterSelect Specialty HospitalWcigelaypk62-13-3240 History of Present illness Narrative* Rosalie Payne [...] - Iron and TIBC documented in this encounterSelect Specialty HospitalVoxjafvwek32-84-8346 History of Present illness Narrative* Stefano Nagy, PT - 12/27/2023 2:30 PM EDT Physical Therapy Physical Therapy Treatment Visit Patient Name: Aleta Csatro Today's Date: 12/27/2023 Visit number: [id number] Supervised [...] HEP at this time. documented in this encounterSelect Specialty HospitalDyireqnump89-91-3163 History of Present illness Narrative* Stefano Nagy, [...] issue. Continue as tolerated. documented in this encounterSelect Specialty HospitalKsgbksxklp20-15-4637 History of Present illness Narrative* Kelvin Schwartz, DO - 12/09/2023 8:00 AM EDT Images from the original note were not included. @ENCDATE@ [facility] Matthew is a 23 y.o. female who [...] the operative report andarthroscopic photos available in [facility]. Following the surgery in April 2023, [...] note was created using voice recognition through [employer]. documented in this encounterSelect Specialty HospitalEybhcmxugk68-44-9355 Procedure noteProm[facility]06-17-2024 History and physical note Author Marcelle Espinosa [facility] September 02, 2023 11:40amNote Date/TimeJune 2023 11:40[place] [address] Gastroenterology H&P Signed Patient: Aleta Castro MR#: [id number] : 2000 Acct:[id number] Age/Sex: 23 / F Adm Date: 4 Loc: Room: Type: [facility] Attending Dr: Marcelle Espinosa DO [...] signed by Marcelle Espinosa DO> 09/02/23 [facility] Work Phone: 1(137) 373-355606-17-2024 Procedure notePromedica [facility] Hospital01-30-2024 [id number]#[id number] [facility]01-15-2024 Evaluation note* Encounter Date [...] your hands regularly. [facility] if symptoms persist. Patient is [...] follow up with PCP if symptoms persist. [employer] Other 06-06-2022 Evaluation note* Encounter Date Diagnosis [...] symptoms or concerns Aug,ronchitis (ICD-10 - J40) [employer] Other 03-09-2022 Hospital Discharge instructions* Instructions* Artis [...] be sent through Care Everywhere. * Contusion (Djiboutian) * Knee Pain or Injury (Djiboutian) * RICE: General Info (Djiboutian) documented in this encounterHolzer HospitalRPI ([employer]) Work Phone: [phone]) 157-923702-24-2022 Evaluation note* Encounter Date Diagnosis Assessment Notes Treatment Notes Treatment Clinical Notes Apr, Oral thrush (ICD-10 - B37.0) Use medication as directed. Change toothbrush. Follow up with PCP if symptoms do not improve with treatment [employer] Other 02-14-2022 Evaluation note* Encounter Date Diagnosis [...] Patient care instructions given in writting by [facility] Care At Home document. [employer] Other 01-21-2022 Evaluation note* Encounter Date Diagnosis [...] Patient care instructions given in writting by [facility] Care At Home document. [employer] Other Evaluation + Plan note Future Appointments Appointment Date:04/23/2023 07:30:00 AM Scheduled Provider: Location:[facility] Surgical Services Appointment Type[facility]gery [facility] Diagnosis Closed head injury, initial encounter- Primary documented in this encounter [employer] Phone: evaluation note* Diagnosis Tailbone injury, initial encounter- Primary documented in this encounter [employer] Phone: evaluation note* Diagnosis Contusion of left knee, initial encounter- Primary documented in this encounter [employer] Phone: evaluation note* Diagnosis Onset Date Resolution Status Diarrhea acuteGERD (gastroesophageal reflux disease)acuteLower abdominal painacuteNausea [facility] Work Phone: Evaluation note* Diagnosis Onset Date Resolution Status Diarrhea acuteDysphagiaacuteGERD (gastroesophageal reflux disease)acuteLower abdominal painacuteNauseaacBarberton [facility] Work Phone: Evaluation note* Diagnosis Acute [...] (HHS-HCC) state, incidental 15 weeks gestation of ([facility]) Screening, , for anatomic survey ([facility]) Encounter for anatomic survey documented [facility] encounter [facility]* Diagnosis 19 weeks gestation of (HHS-HCC) Second trimester ([facility]) state, incidental documented in this encounter [facility]* Diagnosis Second trimester (HHS-HCC) state, incidental 23 weeks gestation of ([facility]) Diabetes mellitus screening Screening for diabetes mellitus STD exposure Well woman exam with routine gynecological exam Routine gynecological examination Heart palpitations Palpitations documented in this encounter [facility]* Diagnosis Second trimester (HHS-HCC) state, incidental 27 weeks gestation of ([facility]) Evan's disease Chronic lymphocytic thyroiditis documented in [...] syncopeMedical Historychronic depressionSurgical Historyleft ovarian cystHospitalization Historychild [employer] Other Hospital course Narrative No data available for this section [facility]* Attachments The following attachments cannot be sent through Care Everywhere. * Head Injury: Closed: General Info (Djiboutian) documented in this encounterHolzer HospitalExec Phone: Hospital Discharge instructions* Attachments The following attachments cannot be sent through Care Everywhere. * Coccyx Injury (Djiboutian) documented in this encounterHolzer HospitalExec Phone: Hospital Discharge instructions No data available for this section [facility] No data available for [facility] Summary Purpose Family History Relationship Condition [...] section and content) DATE CREATED AUTHOR 09/05/2017 [facility] DATE CREATED AUTHOR AUTHOR'S ORGANIZ ATION 09/05/2017 [facility] DATE CREATED AUTHOR AUTHOR'S ORGANIZ ATION 10/28/2019 [facility] DATE CREATED AUTHOR AUTHOR'S ORGANIZ ATION 05/26/2021 [facility] DATE CREATED AUTHOR AUTHOR'S ORGANIZ ATION 05/10/2022 [facility] DATE CREATED AUTHOR AUTHOR'S ORGANIZ ATION 07/24/2022 [facility] [employer] DATE CREATED AUTHOR AUTHOR'S ORGANIZ ATION 05/15/2023 [facility] DATE CREATED AUTHOR AUTHOR'S ORGANIZ ATION 09/11/2023 [facility] DATE CREATED AUTHOR AUTHOR'S ORGANIZ ATION 02/08/2024 [facility] DATE CREATED AUTHOR AUTHOR'S ORGANIZ ATION 11/30/2024 [facility] DATE CREATED AUTHOR AUTHOR'S ORGANIZ ATION 01/22/2025 [facility] EPIC Reason for Visit [...] the musculoskeletal system and connective tissue Procedures WA THERAPEUTIC PX 1/> AREAS EACH 15 MIN EXERCISES Myron Marroquin, DO [address] [place], [place] Stefano Nagy, PT [address] [place] [address] Referral IDStatusReasonStart DateExpiration DateVisits RequestedVisits [id number]/25/202412/22/[id number] CommentsPainReasonCommentsAmenorrheaReasonCommentsRoutine VisitReason CommentsRoutine Visit Scheduled Active and [...] MemberRelationshipSpecialtyStart DateEnd Date Rosalie Payne MD [address] [place] [address] PCP - General05/24/21Team MemberRelationshipSpecialtyStart DateEnd Date Rosalie Payne MD [address] [place] [address] (Fax) PCP - [facility]07/24/22 Team Status: Active Member Role [...] MemberRelationshipSpecialtyStart DateEnd Date Rosalie Payne MD [address] [place] [address] (Fax) PCP - [facility]07/24/22Team MemberRelationshipSpecialtyStart DateEnd Date Rosalie Payne MD [address] [place] [address] (Fax) PCP - [facility]07/24/22Team MemberRelationshipSpecialtyStart DateEnd Date Rosalie Payne MD [address] [facility] [place] [address] (Fax) PCP - GeneralFamily Medicine07/24/22Team MemberRelationshipSpecialtyStart DateEnd Date Rosalie Payne MD [address] [place] [address] (Fax) PCP - GeneralFamily Medicine07/24/22Team MemberRelationshipSpecialtyStart DateEnd Date Rosalie Payne MD [address] [place] [address] (Fax) PCP - GeneralFamily Medicine07/24/22Team MemberRelationshipSpecialtyStart DateEnd Date Rosalie Payne MD [address] [facility] [place] [address] (Fax) PCP - GeneralFamily Medicine07/24/22Team MemberRelationshipSpecialtyStart DateEnd Date Rosalie Payne MD [address] [place] [address] (Fax) PCP - GeneralFamily Medicine07/24/22Team MemberRelationshipSpecialtyStart DateEnd Date Rosalie Payne MD [address] [place] [address] (Fax) PCP - GeneralFamily Medicine07/24/22Team MemberRelationshipSpecialtyStart DateEnd Date Rosalie Payne MD [address] [place] [address] (Fax) PCP - GeneralFamily Medicine07/24/22Team MemberRelationshipSpecialtyStart DateEnd Date Rosalie Payne MD [address] [facility] [place] [address] (Fax) PCP - GeneralFamily Medicine07/24/22Team MemberRelationshipSpecialtyStart DateEnd Date Rosalie Payne MD [address] [place] [address] (Fax) PCP - GeneralFamily Medicine07/24/22Team MemberRelationshipSpecialtyStart DateEnd Date Rosalie Payne MD [address] [place] [address] (Fax) PCP - GeneralFamily Medicine07/24/22 Rosalie Payne MD [address] [place] [address] (Fax) PCP - [facility] [employer]06/16/20Team MemberRelationshipSpecialtyStart DateEnd Date Rosalie Payne MD [address] [place] [address] (Fax) PCP - GeneralFamily Medicine07/24/22 Rosalie Payne MD [address] [place] [address] (Fax) PCP - [facility] [employer]06/16/20Team MemberRelationshipSpecialtyStart DateEnd Date Rosalie Payne MD [address] [place] [address] (Fax) PCP - GeneralFamily Medicine07/24/22 Rosalie Payne MD [address] [place] [address] (Fax) PCP - [facility] [employer]06/16/20Team MemberRelationshipSpecialtyStart DateEnd Date Rosalie Payne MD [address] [place] [address] (Fax) PCP - GeneralFamily Medicine07/24/22 Rosalie Payne MD [address] [place] [address] (Fax) PCP - [facility] [employer]06/16/20Team MemberRelationshipSpecialtyStart DateEnd Date Rosalie Payne MD [address] [place] [address] (Fax) PCP - GeneralFamily Medicine07/24/22 Rosalie Payne MD [address] [place] [address] (Fax) PCP - [facility] [employer]06/16/20Team MemberRelationshipSpecialtyStart DateEnd Date Rosalie Payne MD [address] [place] [address] (Fax) PCP - GeneralFamily Medicine07/24/22 Rosalie Payne MD [address] [place] [address] (Fax) PCP - [facility] [employer]06/16/20Team MemberRelationshipSpecialtyStart DateEnd Date Rosalie Payne MD [address] [place] [address] (Fax) PCP - GeneralFamily Medicine07/24/22 Rosalie Payne MD [address] [place] [address] (Fax) PCP - [facility] [employer]06/16/20Team MemberRelationshipSpecialtyStart DateEnd Date Rosalie Payne MD [address] [place] [address] (Fax) PCP - GeneralFamily Medicine07/24/22 Rosalie Payne MD [address] [place] [address] (Fax) PCP - [facility] [employer]06/16/20Team MemberRelationshipSpecialtyStart DateEnd Date Rosalie Payne MD [address] [place] [address] (Fax) PCP - Generalmily Medicine07/24/22 Rosalie Payne MD [address] [place] [address] (Fax) PCP - [facility] [employer]06/16/20Team MemberRelationshipSpecialtyStart DateEnd Date Rosalie Payne MD [address] [place] [address] (Fax) PCP - Generalmily Medicine07/24/22 Rosalie Payne MD [address] [place] [address] (Fax) PCP - [facility] [employer]06/16/20Team MemberRelationshipSpecialtyStart DateEnd Date Rosalie Payne MD [address] [place] [address] (Fax) PCP - [facility]07/24/22 Rosalie Payne MD [address] [facility] [place] [address] (Fax) PCP - [facility]06/16/20Te MemberRelationshipSpecialtyStart DateEnd Date Rosalie Payne MD [address] [facility] [address] [place] [address] (Fax) PCP - [facility]07/24/22 Rosalie Payne MD [address] [facility] [address] [place] [address] (Fax) [facility]06/16/20Te MemberRelationshipSpecialtyStart DateEnd Date Rosalie Payne MD [address] [facility] 100 [place] [address] (Fax) PCP - [facility]07/24/22 Rosalie Payne MD [address] [address] [place] [address] (Fax) PCP - [facility]06/16/20 Goals (unrecognized section and content) [...] BE BASED ON THE PRIMARY CLINICAL RECORDS. [employer] [facility]. provides no warranty or guarantee of the accuracy or completeness of information in this document.
--- OUTSIDE RECORDS SUMMARY | 2025-01-30 07:06 | XMS_ITS | Encounter Summary ---
Author Organization [facility] Address [address] [place] [address] Care Team Providers Care Community Manager Name Role Phone Danny Schuler MD Primary Care Provider [phone] Danny Schuler MD Unavailable [phone] Encounter Details DateTypeDepartmentCare Team (Latest Contact Info)Uqrnrravzjn77/12/2025Bamboo flowsheet [facility] [address] [place] [phone] Doc [place] DO [address] [facility] [address] Brandyn [place], [place] [address] Social History Tobacco UseTypesPacks/DayYears UsedDateSmoking Tobacco: Some [...] week12/11/2022How often do you attend temple or restorationism services?More than 4 times per year12/11/2022o you [...] and heating?Somewhat hard 12/11/2022[facility] [place] of Occupational Health - Occupational Stress QuestionnaireAnswerDate RecordedDo you feel stress - tense, restless, nervous, or anxious, or unable to sleep at night because yourmind is troubled all the time - these days?Only a mvjvum7512/11/2022Exercise Vital SignAnswerDate Recorded On average, how many [...] degree you have received?11th grade12/10/2022Estimated Date of BlmpheuzRimcjktcRjq50/06/2025Based on last menstrual period of 05/16/2024Sex and Gender InformationValueDate RecordedSex Assigned at HvnucIjhhar21/25/2023 10:10 AM EDTLegal ImlUjlsnf93/15/2023 6:51 PM EDTGender ItpajkvvHjdbvr42/25/2023 10:10 AM EDTSexual OrientationNot on filedocumented as of this encounter Plan of Treatment DateTypeDepartmentCare Team (Latest Contact Info)Npffqqocann16/19/2025 1:20 PM ESTRoutine [facility] [address] [place] [address] Doc Thomas DO [address] [place] [address] documented as of this encounter Visit Diagnoses Not on filedocumented in this encounter Care Teams Team MemberRelationshipSpecialtyStart DateEnd Date Danny Schuler MD [address] [address] PCP - GeneralFamily Medicine07/24/22 Danny Schuler MD [address] [address] PCP - [employer]06/16/20documented as of this encounter
--- OUTSIDE RECORDS SUMMARY | 2025-01-30 07:07 | XMS_ITS | Encounter Summary ---
Author Organization [facility] Address [address] [place] [address] Care Team Providers Care Newspaper Carrier Name Role Phone Danny Payne MD Primary Care Provider [phone] Danny Payne MD Unavailable [phone] Encounter Details DateTypeDepartmentCare Team (Latest Contact Info)Mpflrxmtndx04/08/2025Clinisync Result Encounter [facility] External Department Unsolicited Sintia [place], DO [address] [facility] [place] [address] Social History Tobacco UseTypesPacks/DayYears UsedDateSmoking Tobacco: Some [...] week12/11/2022How often do you attend jewish or bahai services?More than 4 times per year12/11/2022o you belong to any clubs or organizations such as jewish groups, unions, fraDOCUSYS or athletic groups, or school groups?No12/11/2022How often [...] and heating?Somewhat hard 12/11/2022[facility] [place] of Occupational Health - Occupational Stress QuestionnaireAnswerDate RecordedDo you feel stress - tense, restless, nervous, or anxious, or unable to sleep at night because yourmind is troubled all the time - these days?Only a gcovyb4112/11/2022Exercise Vital SignAnswerDate Recorded On average, how many [...] degree you have received?11th grade12/10/2022Estimated Date of OkyloercJxggfhtfSjq90/06/2025Based on last menstrual period of 05/16/2024Sex and Gender InformationValueDate RecordedSex Assigned at XrnyeKteezb69/25/2023 10:10 AM EDTLegal EvvLlozkd18/15/2023 6:51 PM EDTGender MqgfybhyHbzwzw80/25/2023 10:10 AM EDTSexual OrientationNot on filedocumented as of this encounter Plan of Treatment DateTypeDepartmentCare Team (Latest Contact Info)Qmrbttsbtwi71/19/2025 1:20 PM ESTRoutine [facility] [address] [facility] [place] [phone] Sintia [place] DO [address] [facility] [address] [place], [place] [address] documented as of this encounter Procedures Procedure NamePriorityDate/TimeAssociated DiagnosisCommentsUS OB BPP W NON-YGHWFH9601/23/2025 9:25 AM EST documented in this encounter Results * US OB BPP W NON-STRESS (01/23/2025 9:25 AM EST)Anatomical Region LateralityModalityOtherSpecimen (Source)Anatomical Location / Laterality Collection Method / VolumeCollection TimeReceived Time01/23/2025 9:25 AM EST Narrative 01/23/2025 9:28 AM EST [facility] ?[address] ? [place] [address] ? Ultrasound Report ? Signed ? Patient: RACHEL CASTRO ?MR#: [id number] ?? : 2000 ?Acct:[id number] ?? Age/Sex: 24 / F ?ADM Date: 01/23/25 ?? Loc: US ? Attending Dr: Sintia Thomas D.O. ? Ordering Physician: Sintia Thomas D.O. ?? Date of Service: 01/23/25 ?? Procedure(s): US OB BPP w non-stress ?? Accession Number(s): [id number] ? cc: Sintia Thomas D.O.; DANNY PAYNE ? [facility] ? [address] ? [place] [address] ? Patient Name: ?? RACHEL Kristina CASTRO ? MRN: [facility]:[id number] ? date: 2000 ?Sex: F ?? Assigned Patient Location: [facility] ?? Current Patient Location: [facility] ?? Accession/Order Number: [id number] ?? Exam Date: 01/23/2025 ??08:41 ?Report Date: [...] Dictation Location: RADIO-PC-17 ? Electronically authenticated by: [id number] ??Y ?? Date: 01/23/2025 ??09:25 ? Dictated By: ?Emmanuel Dalton M.D. ? Signed By: ?01/23/25927 ? DD/ 0925 ? TD/TT: ? Injection Mold Tooling Technician: Procedure Note Radiology, Radiologist, - 01/23/2025 [place] [address] Ultrasound Report Signed Patient: RACHEL CASTRO NMR#: [id number] : 2000Acct:[id number] Age/Sex: 24 / FADM Date: 01/23/25 Loc: US Attending Dr: Sintia Thomas D.O. Ordering Physician: Sintia Thomas D.O. Date of Service: 01/23/25 Procedure(s): US OB BPP w non-stress Accession Number(s): [id number] cc: Sintia [place] D.O.; DANNY PAYNE The [address] [address] Patient Name: RACHEL CASTRO MRN: [id number] date: 2000 Sex: F Assigned Patient Location: [facility] Current Patient Location: [facility] Accession/Order Number: [id number] Exam Date: 01/23/2025 08:41 Report Date: 01/23/2025 [...] Dalton M.D. 01/23/2025 9:25 AM Dictation Location: [email or web address] Electronically authenticated by: [id number] Y Date: 9:25 Dictated By: Emmanuel Dalton M.D. Signed By:01/23/25927 DD/ 4 TD/TT: Injection Mold Tooling Technician: Authorizing ProviderResult TypeResult StatusCorey William DOCLINISYNC IMAGINGFinal Result documented in this encounter Visit Diagnoses Not on filedocumented in this encounter Care Teams Team MemberRelationshipSpecialtyStart DateEnd Date Danny Payne MD [address] [place] [address] PCP - GeneralFamily Medicine07/24/22 Danny Payne MD [address] [place] [address] PCP - Zig[facility] Richard06/16/20documented as of this encounter
--- OUTSIDE RECORDS SUMMARY | 2025-01-30 07:07 | XMS_ITS | Encounter Summary ---
Author Organization [facility] Address [address] [place] [address] Care Team Providers Care Continuous Crusher Operator Name Role Phone Danny Schuler MD Primary Care Provider [phone] Danny Schuler MD Unavailable [phone] Encounter Details DateTypeDepartmentCare Team (Latest Contact Info)Ckwuqwouyxr67/08/2025Clinisync Result Encounter [facility] External Department Unsolicited Doc [place], DO [address] [facility] [place] [address] Social History Tobacco UseTypesPacks/DayYears UsedDateSmoking Tobacco: Some [...] week12/11/2022How often do you attend mosque or mu-ism services?More than 4 times per year12/11/2022o you belong to any clubs or organizations such as mosque groups, unions, fraTutor Assignment or athletic groups, or school groups?No12/11/2022How often [...] food, housing, medical care, and heating?Somewhat hard 12/11/2022[facility] [place] of Occupational Health - Occupational Stress QuestionnaireAnswerDate RecordedDo you feel stress - tense, restless, nervous, or anxious, or unable to sleep at night because yourmind is troubled all the time - these days?Only a vtjlah9212/11/2022Exercise Vital SignAnswerDate Recorded On average, how many [...] degree you have received?11th grade12/10/2022Estimated Date of TrhkwdqcQiuejscwTnh29/06/2025Based on last menstrual period of 05/16/2024Sex and Gender InformationValueDate RecordedSex Assigned at CaypwJomjpv78/25/2023 10:10 AM EDTLegal OjxMcbthn03/15/2023 6:51 PM EDTGender UbelfykcOykddb62/25/2023 10:10 AM EDTSexual OrientationNot on filedocumented as of this encounter Plan of Treatment DateTypeDepartmentCare Team (Latest Contact Info)Aolbicyxkua32/19/2025 1:20 PM ESTRoutine [facility] [address] [place] [address] Doc hTomas DO [address] [facility] [address] [place] [place], [place] [address] documented as of this encounter Procedures Procedure NamePriorityDate/TimeAssociated DiagnosisCommentsALL THYROID STIM RSZTTVEKaplzla11/08/2025 8:09 AM EST documented in this encounter [...] MemberRelationshipSpecialtyStart DateEnd Date Danny Schuler MD [address] [facility] [address] [place] [address] PCP - GeneralFamily Medicine07/24/22 Danny Schuler MD [address] [place] [address] PCP - Ziggy Richard06/16/20documented as of this encounter
--- OUTSIDE RECORDS SUMMARY | 2025-01-30 07:08 | XMS_ITS | Encounter Summary ---
Author Organization [facility] Address [address] [place] [address] Care Team Providers Care Tin Can Laborer Name Role Phone Danny Schuler MD Primary Care Provider [phone] Danny Schuler MD Unavailable [phone] Encounter Details DateTypeDepartmentCare Team (Latest Contact Info)Vzdslsojkzs86/05/2025amboo flowsheet KYE [place] OBGYKristina [address] [facility] [address] [place] [address] Pretty Chaidez PA [address] [facility] [address] [place], [place] [address] Social History Tobacco UseTypesPacks/DayYears UsedDateSmoking Tobacco: Some [...] relatives?Once a week12/11/2022How often do you attend catholic or cheondoism services?More than 4 times per year12/11/2022o you belong to any clubs or organizations such as catholic groups, unions, fraAgilyx or athletic groups, or school groups?No12/11/2022How often [...] food, housing, medical care, and heating?Somewhat hard 12/11/2022[facility] [place] of Occupational Health - Occupational Stress QuestionnaireAnswerDate RecordedDo you feel stress - tense, restless, nervous, or anxious, or unable to sleep at night because yourmind is troubled all the time - these days?Only a hyljjw3212/11/2022Exercise Vital SignAnswerDate Recorded On average, how many [...] degree you have received?11th grade3Estimated Date of BxcsvlobIndiuiniVci03/06/2025Based on last menstrual period of 05/16/2024Sex and Gender InformationValueDate RecordedSex Assigned at RdgnzDkbhni40/25/2023 10:10 AM EDTLegal SfxPdvonc91/15/2023 6:51 PM EDTGender SbjryixuDdjfrz92/25/2023 10:10 AM EDTSexual OrientationNot on filedocumented as of this encounter Plan of Treatment DateTypeDepartmentCare Team (Latest Contact Info)Sdxsftwkdpu36/19/2025 1:20 PM ESTRoutine [facility] [address] [facility] [place] [address] Doc [place] DO [address] [place] [address] documented as of this encounter Visit Diagnoses Not on filedocumented in this encounter Care Teams Team MemberRelationshipSpecialtyStart DateEnd Date Danny Schuler MD [address] [place] [address] [address] PCP - GeneralFamily Medicine07/24/22 Danny Schuler MD [address] [place] [address] [address] PCP - [place] [employer]06/16/20documented as of this encounter
--- OUTSIDE RECORDS SUMMARY | 2025-01-30 07:09 | XMS_ITS | Clinical Summary ---
Author Organization [facility] Address [address] [place] [address] Care Team Providers Care Jewel Hole Gauger Name Role Phone Danny Payne MD Primary Care Provider Danny Payne MD Unavailable [phone] Allergies Active AllergyReactionsCriticalityNoted NpnxNmlqchaeWlvbykrgtlszRaeyr74/05/2021 Other Reaction(s): hives DwmqxZimbUlh54/05/2021 Other Reaction(s): Unknown Cyidankes31/25/2023 Other Reaction(s): body numbness Medications MedicationSigDispense QuantityRefillsLast FilledStart DateEnd DateStatus ondansetron (Zofran) 4 MG tablet Indications:Nausea and vomiting in ([facility])Take 1 tablet (4 mg) by mouth every 6 (six) hours if needed for nausea or vomiting for up to 30 doses Take 1 tablet by mouth every 6 hours as needed for nausea. 30 tablet 5Active Active Problems ProblemNoted DateDiagnosed DateAbnormal bleeding in menstrual cycle02/19/2024 Status post arthroscopic reconstruction of anterior cruciate ligament of left knee using quadricepstendon ksmuqghzd27/23/2024cute pain of left knee04/22/2023 Chronic wajqjce4112/10/2022igarette fchsbz7312/10/2022yst of ovary12/10/2022 Gabby's vufsnpc1012/10/2022Hypotension determined by npzbkwilnob13/25/2023 Juvenile osteochondrosis of tibial vurbidthzj56/25/2023Non morbid obesity due to excess kchchbre77/25/2023ostural orthostatic tachycardia syndrome (POTS) 12/10/2022Subclinical xfmtvljlybfgav54/25/2023Estimated Date of Delivery JjzoqinmAjb21/06/2025Based on last menstrual period of 05/16/2024 Resolved Problems ProblemNoted DateDiagnosed DateResolved DateOverweight (BMI 25.0-29.9)12/10/2022 02/19/2024 Encounters DateTypeDepartmentCare CzxqYoqyqsckyan38/12/2025 1:40 PM ESTRoutine [facility] [place] [facility] [address] [place] [address] Sintia Thomas, DO 36 weeks gestation of ([facility]); Third trimester ([facility]); Gabby's disease; Low hemoglobin; Heart palpitations; Pelvic pressure in ([facility])01/27/2025amboo flowsheet [facility] [place] [facility] [address] [place] [phone] Sintia Thomas, DO 5Clinisync Result Encounter [facility] External Department Unsolicited Sintia Thomas, DO 01/23/2025linisync Result Encounter [facility]OM[facility] External Department Unsolicited Sintia Thomas, DO 01/22/2025Telephone [facility] [place] [facility] [address] [place] [phone] Sintia Thomas, DO 01/20/2025 1:50 PM ESTRoutine [facility] [place] [facility] [address] [place] [phone] Pretty Chaidez PA Third trimester ([facility]); 35 weeks gestation of ([facility])5Clinisync Result Encounter [facility]OM[facility] External Department Unsolicited Sintia Thomas, DO 01/20/2025amboo flowsheet [facility] [place] [facility] [address] [place] [phone] Pretty Chaidez PA 10/27/2025Clinisync Result Encounter [facility]OMS External Department Unsolicited Sintia Thomas, DO 01/05/2025 1:00 PM EDTRoutine [facility] [place] [facility] [address] [place] [address] Sintia Thomas, DO Third trimester ([facility]); 33 weeks gestation of ([facility])01/05/2025amboo flowsheet [facility] [place] [facility] [address] [place] [address] Sintia Thomas, DO 01/02/2025linisync Result Encounter [facility] External Department Unsolicited Provider, Generic External Data 12/26/2024linisync Result Encounter [facility] External Department Unsolicited Provider, Generic External Data 12/26/2024linisync Result Encounter [facility] External Department Unsolicited Provider, Generic External Data 12/26/2024linisync Result Encounter [facility]OM[facility] External Department Unsolicited Sintia Thomas, DO 12/23/2024 2:00 PM EDTRoutine [facility] [place] [facility] [address] [place] [address] Jessica Steen NP Third trimester ([facility]); 31 weeks gestation of ([facility])12/23/2024Refill [facility] [place] [facility] [address] [place] [address] Azalea Schmitz MA Nausea and vomiting in ([facility])12/23/2024amboo flowsheet [facility] [place] [facility] [address] [place] [address] Jessica Steen NP 12/09/2024 2:00 PM EDTRoutine [facility] [place] [facility] [address] [place] [address] Sintia Thomas, DO Third trimester ([facility]); 29 weeks gestation of ([facility]); Yeast zquzhylkd19/24/2025Bamboo flowsheet [facility] [place] [facility] [address] [place] [phone] Sintia Thomas, 12/01/2024Telephone [facility] [place] [facility] [address] [place] [phone] Azalea Schmitz, JARRETT 11/27/2024bstract [facility] [place] [facility] [address] [place] [address] [place] [address] Sintia Thomas, 11/25/2024 1:50 PM EDTRoutine [facility] [place] [facility] [address] [place] [phone] Jessica Steen, GEORGES Second trimester ([facility]); 27 weeks gestation of ([facility]); Gabby's eitnfnp1311/25/2024amboo flowsheet [facility] [place] [facility] [address] [place] [phone] Jessica Steen, GEORGES 11/24/2024linisync Result Encounter [facility]OM[facility] External Department Unsolicited Provider, Generic External Data 11/19/2024Telephone [facility] [place] [facility] [address] [place] [phone] Janet Narayanan MA 11/12/2024linisync Result Encounter [facility] External Department Unsolicited Provider, Generic External Data 11/06/2024Orders Only [facility] [place] [facility] [address] [place] [address] Coretta Cardenas LPN 11/05/2024Telephone [facility] [place] [facility] [address] [place] [phone] Azalea Schmitz MA 11/04/2024Telephone [facility] [place] [facility] [address] [place] [phone] Azalea Schmitz MA 5Clinisync Result Encounter [facility] External Department Unsolicited Provider, Generic External Data 11/03/2024Telephone [facility] [place] [facility] [address] [place] [address] [place] [address] Azalea Schmitz MA from Last 3 Months Immunizations ImmunizationAdministration DatesNext DueDTaP / HiB / IPV1999,1999 DTaP / Hib03/26/2000Hep A, ped/adol, 2 dose03/31/2012,08/31/2011Hep B, Adolescent or Iixnaxsqd34/27/2001,1999,1999Hep B, adult11/12/2016Hib (HbOC)09/11/2000Hib / Hep B009/11/2000IPV09/11/2000MMR09/11/2000Meningococcal BBH7K0811/12/2016Pneumococcal Conjugate PCV 7003/26/20009321Grox65/15/2012Varicella 08/31/2011 Family History Medical HistoryRelationNameCommentsNo Known ProblemsBrotherHyperlipidemia [...] week12/11/2022How often do you attend quaker or anabaptism services?More than 4 times per year12/11/2022o you belong to any clubs or organizations such as quaker groups, unions, fra[employer] or athletic carmen ups, or school groups?No12/11/2022How often do you attend meetings of the clubs or organizations you belong to?Never12/11/2022re you , , , , never , or living with a partner?Odlxper0312/11/2022 AUDIT-CAnswerDate RecordedQ1: How often do you have [...] food, housing, medical care, and heating?Somewhat hard12/11/2022 Citizen [place] [employer] - Occupational Stress Questionnaire AnswerDate RecordedDo you feel stress - tense, restless, nervous, or anxious, or unable to sleep at night because yourmind is troubled all the time - these days? Only a vtywni9812/11/2022Exercise Vital SignAnswerDate RecordedOn average, how many days [...] steady place to sleep or slept in [place] (including now)?No12/11/2022EducationAnswerDate RecordedWhat is the highest level of school you have completed or the highest degree you have received?11th grade12/10/2022Estimated Date of DeliveryCommentsYes 5Based on last menstrual period of 05/16/2024Sex and Gender Information ValueDate RecordedSex Assigned at GxznnUiwqpb51/25/2023 10:10 AM EDTLegal Sex Uslato7105/30/2022 6:51 PM EDTGender MzindyumMnrfud43/25/2023 10:10 AM EDTSexual OrientationNot on file Last Filed Vital Signs Vital SignReadingTime TakenCommentsBlood Xbwqzhbi415/8011/02/2025 2:05 PM EST Iijla4489/06/2023 3:26 PM ZIVXngnpeyzjlj42.4 ??C (97.5 ??F)05/03/2023 11:22 AM ESTRespiratory Rate--Oxygen Stoqeqcsxj05%02/19/2024 3:26 PM ESTInhaled Oxygen Concentration--Fuucij18.8 kg (176 lb)01/27/2025 2:05 PM HXMMkfear800.6 cm (5' 4 )02/26/2024 3:41 PM ESTBody Mass Index30. 3:41 PM EST Plan of Treatment DateTypeDepartmentCare Team (Latest Contact Info)Mzdhtgsdgqw82/19/2025 1:20 PM ESTRoutine [facility] [place] [facility] [address] [place] [phone] iSntia Thomas, [address] [place] [address] Health MaintenanceDue DateLast DoneCommentsPneumococcal Vaccine: Pediatrics (0 to 5 Years) and At-Risk Patients (6 to 64 Years) (1 of 2 - PCV)06/09/2018 03/26/2000COVID-19 Vaccine (1 - season)2024Influenza Vaccine (#1) 2025Postponed from 11/16/2024 (Patient Refused) Procedures Procedure NamePriorityDate/TimeAssociated DiagnosisCommentsPOCT URINALYSIS ONYNLIOMXyfrvbc86/12/2025 2:14 PM EST 36 weeks gestation of ([facility]) Third trimester ([facility]) US OB BPP W NON-MYFQOV3701/23/2025 9:25 AM EST ALL THYROID STIM VEYRCDZPepwfdv39/08/2025 8:09 AM EST US OB BPP W NON-RFCZZP3001/20/2025 5:10 PM EST POCT URINALYSIS SYOEWQWNYrxkppr88/05/2025 2:07 PM EST 35 weeks gestation of ([facility]) US OB BPP W NON-FFBFMK7001/11/2025 9:15 PM EDT POCT URINALYSIS LRZQWHTHYaqlydx07/21/2025 1:04 PM EDT 33 weeks gestation of ([facility]) US OB BPP W NON-VTCURU3001/02/2025 3:02 PM EDT US OB HMGLIX4312/26/2024 11:31 AM EDT US OB BPP W NON-QMOKWX6312/26/2024 11:19 AM EDT ALL THYROID STIM KNJCWEKBbyovou56/11/2025 8:13 AM EDT POCT URINALYSIS RGJUECWNSdldsjm86/08/2025 2:01 PM EDT 31 weeks gestation of ([facility]) POCT URINALYSIS GWMVIODPOlthgve98/24/2025 2:14 PM EDT Third trimester ([facility]) POCT URINALYSIS IVWEMDLHBnldqdr54/10/2025 3:33 PM EDT Second trimester ([facility]) CA ECHO DOPPLER LJEWVKRC68/09/2025 4:39 PM EDT ECG 12-LEAD11/12/2024 12:06 PM EDT ALL THYROID STIM QVLRZQMIexnhpm21/19/2025 4:00 PM EDT GLUCOSE 1 HAZQNgxoxft57/19/2025 4:00 PM EDT ALL CBC WITH AUTO TUFYTjkcyca48/19/2025 4:00 PM EDT from Last 3 Months Results * (ABNORMAL) POCT urinalysis dipstick manually resulted (01/27/2025 2:14 PM EST) Only the most recent of6 resultswithin the time period is included. ComponentValueRef RangeTest MethodAnalysis TimePerformed AtPathologist Signature Color, UAStrawClarity, UAClearGlucose, UAPositiveNegative - 1999(110) ++++ mg/dL Bilirubin, UANegativeNegative - 4(70) +++ mg/dLKetones, UAPositiveNegative - 160(16) ++++ mg/dLSpec Grav, UA1.0301 - 1.03Blood, UANegativeNegative - 50 Randall/mcLpH, UA5.55 - 9Protein, UAPositiveNegative - 2000(20) ++++ mg/dL Urobilinogen, UA1.00.2 - 12 mg/dLLeukocytes, UANegativeNegative - 500+++ Rick/mcL Nitrite, UANegativeNegative - PositiveSpecimen (Source)Anatomical Location / LateralityCollection Method / VolumeCollection TimeReceived FkvnLlyyu59/12/2025 2:14 PM EST Narrative Authorizing ProviderResult TypeResult StatusCorey William DOPOINT OF CARE TEST ENTER/EDIT ORDERABLESFinal Result * US OB BPP W NON-STRESS (01/23/2025 9:25 AM EST) Only the most recent of5 resultswithin the time period is included. Anatomical RegionLateralityModalityOtherSpecimen (Source)Anatomical Location / LateralityCollection Method / VolumeCollection TimeReceived Time01/23/2025 9:25 AM EST Narrative 01/23/2025 9:28 AM EST [facility] ?[address] ? [place] [address] ? Ultrasound Report ? Signed ? Patient: ALETA CASTRO ?MR#: [id number] ?? : 2000 ?Acct:[id number] ?? Age/Sex: 24 / F ?ADM Date: 01/23/25 ?? Loc: US ? Attending Dr: Sintia Thomas D.O. ? Ordering Physician: Sintia Thomas D.O. ?? Date of Service: 01/23/25 ?? Procedure(s): US OB BPP w non-stress ?? Accession Number(s): [id number] ? cc: Sintia Thomas D.O.; DANNY PAYNE ? [facility] ? [address] ? [place] [address] ? Patient Name: ?? ALETA CATSRO ? MRN: [facility]:[id number] ? date: 2000 ?Sex: F ?? Assigned Patient Location: [facility] ?? Current Patient Location: [facility] ?? Accession/Order Number: [id number] ?? Exam Date: 01/23/2025 ??08:41 ?Report Date: [...] profile: 10/23 ? Impression dictated by: Emmanuel Dlaton M.D. ??01/23/2025 9:25 AM ? Dictation Location: [facility]-- ? Electronically authenticated by: [id number] ??Y ?? Date: 01/23/2025 ??09:25 ? Dictated By: ?Emmanuel Daltno M.D. ? Signed By: ?01/23/25 0928 ? DD/ 4 ? TD/TT: ? Sustain Engineer: Procedure Note Radiology, Radiologist, - 01/23/[address] [address] Ultrasound Report Signed Patient: ALETA CASTRO NMR#: [id number] : 2000Acct:[id number] Age/Sex: 24 / FADM Date: 01/23/25 Loc: US Attending Dr: Sintia Thomas D.O. Ordering Physician: Sintia Thomas D.O. Date of Service: 01/23/25 Procedure(s): US OB BPP w non-stress Accession Number(s): [id number] cc: Sintia Thomas D.O.; DANNY PAYNE [place] [address] Patient Name: ALETA CASTRO MRN: [id number] date: 2000 Sex: F Assigned Patient Location: [facility] Current Patient Location: [facility] Accession/Order Number: [id number] Exam Date: 01/23/2025 08:41 Report Date: 01/23/2025 [...] Dalton M.D. 01/23/2025 9:25 AM Dictation Location: [place] [address] Electronically authenticated by: [id number] Y Date: :25 Dictated By: Emmanuel Dalton M.D. Signed By:01/23/25927 DD/ 4 TD/TT: Sustain Engineer: Authorizing ProviderResult TypeResult StatusCorey William DOCLINISYNC IMAGINGFinal [...] EDT Narrative 12/26/2024 11:33 AM EDT [facility] ?[address] ? [place] [address] ? Ultrasound Report ? Signed ? Patient: ALETA CASTRO ?MR#: [id number] ?? : 2000 ?Acct:[id number] ?? Age/Sex: 24 / F ?ADM Date: 12/26/24 ?? Loc: US ? Attending Dr: Sintia Thomas D.O. ? Ordering Physician: Sintia Thomas D.O. ?? Date of Service: 12/26/24 ?? Procedure(s): US OB growth ?? Accession Number(s): [id number] ? cc: Sintia Thomas D.O.; DANNY PAYNE ? [facility] ? [address] ? [place] [address] ? Patient Name: ?? ALETA CASTRO ? MRN: [id number] ? date: 2000 ?Sex: F ?? Assigned Patient Location: US ?? Current Patient Location: ? Accession/Order Number: [id number] ?? Exam Date: 12/26/2024 ??09:00 ?Report Date: [...] 52 bpm. ? motion documented by the financial institution president.. ? Estimated weight 2093 g 71.4%. ? [...] Dictation Location: [facility]-29 ? Electronically authenticated by: [id number] ??Y ?? Date: 12/26/2024 ??11:31 ? Dictated By: ?Deshaun Aguilar M.D. ? Signed By: ?12/26/243 ? DD/ 1131 ? TD/TT: ? Sustain Engineer: Procedure Note Radiology, Radiologist, - 12/26/[address] [place] [address] Ultrasound Report Signed Patient: ALETA CASTRO NMR#: [id number] : 2000Acct:[id number] Age/Sex: 24 / FADM Date: 12/26/24 Loc: US Attending Dr: Sintia Thomas D.O. Ordering Physician: Sintia Thomas D.O. Date of Service: 12/26/24 Procedure(s): US OB growth Accession Number(s): [id number] cc: Sintia Thomas D.O.; DANNY APYNE The [address] [address] Patient Name: ALETA CASTRO MRN: [id number] date: 2000 Sex: F Assigned Patient Location: US Current Patient Location: Accession/Order Number: [id number] Exam Date: 12/26/2024 09:00 Report Date: 12/26/2024 11:31 At the request of: SINTIA THOMAS DO Procedure: US OB growth Obstetric ultrasound for growth INDICATION: Gabby's disease FINDINGS: Single live anterior cephalic presentationlongitudinal lie. Amniotic fluid index 12.4 cm between the gestational age fifth luo61ek percentile. Largest pocket of fluid 5.1 cm. heart rate 1 52 bpm. motion documented by the financial institution president.. Estimated weight 2093 g 71.4%. Gestation age 32 weeks and 0 days. Biparietal diameter 7.93 m. Head circumference 30.7 cm. Otherwise the 10.6 cm. Abdominal circumference 28.9 cm. Femur length 6.4 cm. US/US OB growth IMPRESSION: Single live intrauterine of approximately 30 weeks Impression dictated by: Deshaun Aguilar M.D. 12/26/2024 11:31 AM Dictation Location: [place] [address] Electronically authenticated by: [id number] Y Date: 1:31 Dictated By: Deshaun Aguilar M.D. Signed By:12/26/24 1133 DD/ 1131 TD/TT: Sustain Engineer: Authorizing ProviderResult TypeResult StatusGeneric External Data Provider CLINISYNC IMAGINGFinal Result * CA ECHO DOPPLER COMPLETE (11/24/2024 4:39 PM EDT)Anatomical RegionLaterality ModalityOtherSpecimen (Source)Anatomical Location / LateralityCollection Method / VolumeCollection TimeReceived Time11/24/2024 4:39 PM EDT Narrative 11/24/2024 4:40 PM EDT [facility] ?[address] ? [place] [address] ? Cardiology Report ? Signed ? Patient: ALETA CASTRO ?MR#: [id number] ?? : 2000 ?Acct:[id number] ?? Age/Sex: 24 / F ?ADM Date: 11/12/24 ?? Loc: CARD ? Attending Dr: Jessica Steen ? Ordering Physician: Jessica Steen ?? Date of Service: 11/12/24 ?? Procedure(s): CA echo doppler complete ?? Accession Number(s): [id number] ? cc: Jessica Steen; DANNY PAYNE ? Patient Name: ? ALETA RAKEL ? MR#: [id number] ? : 2000 ? Exam Date: 11/12/2024 [...] 1640 ? DD/ 1639 ? TD/TT: ? Sustain Engineer: Procedure Note Radiology, Radiologist, - 11/24/[address] [place] [address] Cardiology Report Signed Patient: ALETA CASTRO NMR#: [id number] : 2000Acct:[id number] Age/Sex: 24 / FADM Date: 11/12/24 Loc: CARD Attending Dr: Jessica Steen Ordering Physician: Jessica Steen Date of Service: 11/12/24 Procedure(s): CA echo doppler complete Accession Number(s): [id number] cc: Jessica Steen; DANNY PAYNE Patient Name: ALETA CASTRO MR#: [id number] : 2000 Exam Date: 11/12/2024 Ordering Doctor: JESSICA STEEN [facility] ECHOCARDIOGRAM REPORT PROCEDURE: CA ECHO DOPPLER [...] M.D. Signed By:11/24/24 1640 DD/ 1639 TD/TT: Sustain Engineer: Authorizing ProviderResult TypeResult StatusGeneric External Data Provider CLINISYNC IMAGINGFinal Result * ECG 12-LEAD (11/12/2024 12:06 PM EDT)Anatomical RegionLateralityModalityOther Specimen (Source)Anatomical Location / LateralityCollection Method / Volume Collection TimeReceived Time11/12/2024 12:06 PM EDT Narrative 11/13/2024 1:34 PM EDT [facility] ?[address] ? [place] [address] ? Electrocardiograph Report ? Signed ? Patient: RAKEL,SUMMER N ?MR#: [id number] ?? : 2000 ?Acct:[id number] ?? Age/Sex: 24 / F ?ADM Date: 08/28/25 ?? Loc: CARD ? Attending Dr: Jessica Steen ? Ordering Physician: Jessica Steen ?? Date of Service: 11/12/24 ?? Procedure(s): ECG 12 lead ?? Accession Number(s): [id number] ? cc: ?[facility] ? Test Date: ?2024-11-12 ?? Pat Name: ? SUMMER RAKEL ?Department: ? Room: ? - ?? Gender: ? Female ? Marine Resource Economist: ? : ?2000 ? Requested By: JESSICA STEEN ?? Order Number: [id number] ?Reading MD: ?? Bibi Singh ? Measurements ?? Intervals ?Tappen ? Rate: ? 79 ? P: ?42 ?? AL: ? 158 ?QRS: ?81 ?? QRSD: ? 90 ? T: ?41 ?? QT: ? 353 ? QTc: ?405 ? Interpretive Statements ?? SINUS RHYTHM ?? Normal EKG ?? No previous ECG available for comparison ?? Electronically Signed On 11-13-2024 13:34:21 EDT by Bibi Singh ? Dictated By: ?Bibi Singh M.D. ? Signed By: ?08/29/25 1334 ?11/13/24 1334 ? DD/ 1206 ? TD/TT: ? Sustain Engineer: Procedure Note Radiology, Radiologist, - 11/13/[address] [place] [address] Electrocardiograph Report Signed Patient: ALETA CASTRO#: [id number] : 2000Acct:[id number] Age/Sex: 24 / FADM Date: 11/12/24 Loc: CARD Attending Dr: Jessica Steen Ordering Physician: Jessica Steen Date of Service: 11/12/24 Procedure(s): ECG 12 lead Accession Number(s): [id number] cc: [facility] Test Date: 2024-11-12 Pat Name: ALETA CASTRO Department: Room: - Gender: Female Marine Resource Economist: : 2000 Requested By: JESSICA STEEN Order Number: [id number] Reading MD: Bibi Singh Measurements Intervals Tappen Rate: 79 P: 42 AL: 158 QRS: 81 QRSD: 90 T: 41 QT: 353 QTc: 405 Interpretive Statements SINUS RHYTHM Normal EKG No previous ECG available for comparison Electronically Signed On 11-13-2024 13:34:21 EDT by Bibi Singh Dictated By: Bibi Singh M.D. Signed By:11/13/24 1334 11/13/24 1334 DD/ 1206 TD/TT: Sustain Engineer: Authorizing ProviderResult TypeResult StatusGeneric External Data Provider CLINISYNC IMAGINGFinal Result * GLUCOSE 1 HOUR (11/03/2024 4:00 PM EDT)ComponentValueRef RangeTest Method Analysis TimePerformed AtPathologist SignatureGLUCOSE 1 IUXJ237<130 mg/dLTBH Specimen (Source)Anatomical Location / LateralityCollection Method / Volume Collection TimeReceived Time11/03/2024 4:00 PM EDT11/03/2024 4:01 PM EDT Narrative CLINISYNC - 11/03/2024 6:33 PM EDT Authorizing ProviderResult TypeResult StatusKristina Enio NPLAB BLOOD ORDERABLESFinal ResultPerforming OrganizationAddressCity/State/ZIP CodePhone Number [facility]IN[facility] * (ABNORMAL) ALL CBC WITH AUTO DIFF (11/03/2024 4:00 PM EDT)ComponentValueRef RangeTest MethodAnalysis TimePerformed AtPathologist SignatureTBH WBC6.64.0 - 11.0 10 3/uLTBHTBH RBC3.34(L)4.20 - 5.40 10 6/uLTBHTBH HGB10.8(L)12.0 - 16.0 g/dLTBHTBH HCT31.2(L)36.0 - 48.0 %TBHTBH MCV93.481.0 - 99.0 fLTBHTBH MCH32.3 26.7 - 34.0 pgTBHTBH MCHC34.629.9 - 35.2 g/dLTBHTBH RDW12.711.0 - 15.0 %TBHTBH CSY422869 - 450 10 3/uLTBHTBH MPV9.79.5 - 13.5 [...] 11/03/2024 4:26 PM EDT Authorizing ProviderResult TypeResult StatusKristina Enio NPCLINISYNCFinal ResultPerforming OrganizationAddressCity/State/ZIP CodePhone Number CLINISYNC [facility] from Last 3 Months Insurance Care Teams Team MemberRelationshipSpecialtyStart DateEnd Date Danny Payne MD [address] [place] [id number] [facility] - [facility] Danny [place] MD [address] [place] [address] [place] [address] [facility]
--- OUTSIDE RECORDS SUMMARY | 2025-01-30 07:09 | XMS_ITS | Clinical Summary ---
Author Organization [facility] Address [address] [place] [address] Care Team Providers Care Inspector Salvage Name Role Phone Unavailable Primary Care Provider Unavailabl e Allergies Active AllergyReactionsCriticalityNoted SimsAkqggewdBxhpjlkgccbeMlsej28/05/2021 Other Reaction(s): hives SicbvOtdgTul73/05/2021 Other Reaction(s): Unknown FobtpjrusYympvvk80/25/2023 Other Reaction(s): body numbness Medications MedicationSigDispense QuantityRefillsLast FilledStart DateEnd DateStatus ondansetron ODT (Zofran-ODT) 4 mg disintegrating tablet Take 4 mg by mouth if needed.Active no.37/iron/folic acid (PRENATA ORAL) Take by mouth in the morning.Active Active Problems ProblemNoted DateDiagnosed Date28 weeks gestation of nloqiqvgu46/14/2025bnormal bleeding in menstrual cycle02/19/2024Status post arthroscopic reconstruction of anterior cruciate ligament of left knee using quadricepstendon autograft 05/10/2023cute pain of left knee4Chronic exnaahw0812/10/2022igarette eaisrz0212/10/2022yst of ovary12/10/2022Hashimoto's stygbkf1112/10/2022Hypotension determined by /25/2023Juvenile osteochondrosis of tibial tuberosity 12/10/2022Non morbid obesity due to excess zgivbdig51/25/2023ostural orthostatic tachycardia syndrome (POTS)12/14/20180346Ipudmdvttaz70/15/2019Syncope and zzelapso78/15/2019CommentsYes Encounters DateTypeDepartmentCare KlgsXdyylfpspok19/12/2025 3:20 PM EDTOffice Visit [facility] [address] [place] [address] Bibi Singh MD Syncope and collapse (Primary Dx); Neurocardiogenic syncope; 28 weeks gestation of ; Gabby's diseasefrom Last 3 Months Family History RelationNameStatusCommentsFatherAliveMotherAlive Social History Tobacco UseTypesPacks/DayYears UsedDateSmoking Tobacco: FormerCigarettes Smokeless Tobacco: Former Tobacco Cessation:Counseling Given: Not Answered Comments:Quite 6 month ago Alcohol UseStandard Drinks/WeekCommentsNot Currently0 (1 standard drink = 0.6 oz pure alcohol)ND Safety & EnvironmentAnswerDate RecordedFear of Current or Ex-PartnerNot on file05/09/2023Emotionally AbusedNot on file05/09/2023hysically AbusedNot on file05/09/2023Sexually AbusedNot on file05/09/2023hysically or Sexually AbusedNot on file05/09/2023CommentsYesSex and Gender InformationValueDate RecordedSex Assigned at EuffxQqmwkb33/08/2025 2:10 PM EDT Legal GliFmuvgs97/29/2022 11:55 PM EDTGender BhwlscgnOwgmrc21/08/2025 2:10 PM EDTSexual OrientationHeterosexual or Zthhndfd82/08/2025 2:10 PM EDT Last Filed Vital Signs Vital SignReadingTime TakenCommentsBlood Vhpvvtac429/8009 4:02 PM EDT Hlkyt814911/27/2024 4:02 PM EDTTemperature--Respiratory Rate--Oxygen Sscicxfnrn59% 11/27/2024 4:02 PM EDTInhaled Oxygen Concentration--Wlxrsi59 kg (172 lb) 11/27/2024 4:02 PM PXRRgtscr384.1 cm (5' 5 )11/27/2024 4:02 PM EDTBody Mass Index28.62011/27/2024 4:02 PM EDT Plan of Treatment Health MaintenanceDue DateLast DoneCommentsIPV Vaccines (4 of 4 - 4-dose series) , 1999, 1999Depression Vqvuangdv61/25/2012 Varicella Vaccines (2 of 2 - 2-dose childhood series)HPV Vaccines (1 - 3-dose series)06/09/2014dult Ujuxhwv96COVID-19 Vaccine (1 - season)2024Influenza Vaccine (#1)2024Pap Smear Zoster Vaccines (1 of 2)Pneumococcal Vaccine: Pediatrics (0 to 5 Years) and At-Risk Patients (6 to 64 Years)Aged Out 03/26/2000No longer eligible based on patient's age to complete this topicHIB NqxozahiQtwlgdnrr12/27/2001, 09/11/2000, 03/26/2000, Additional history exists Meningococcal AvlgolkFqyjygxtt76/28/2017Meningococcal B VaccineAged OutNo longer eligible based on patient's age to complete this topicRotavirus VaccinesAged Out No longer eligible based on patient's age to complete this topic Insurance
--- OUTSIDE RECORDS SUMMARY | 2025-01-30 07:09 | XMS_ITS | Encounter Summary ---
Author Organization [facility] Address [address] [place] [address] Care Team Providers Care Energy Efficiency Specialist Name Role Phone Danny Schuler MD Primary Care Provider [phone] Danny Schuler MD Unavailable [phone] Encounter Details DateTypeDepartmentCare Team (Latest Contact Info)Xbkiymmyijl97/07/2025Telephone [facility] [address] [facility] [phone] Doc Thomas DO [address] [facility] [address] [place], [facility] Social History Tobacco UseTypesPacks/DayYears UsedDateSmoking Tobacco: Some [...] week12/11/2022How often do you attend samaritan or denominational services?More than 4 times per year12/11/2022o you belong to any clubs or organizations such as samaritan groups, unions, fraternal [...] and heating?Somewhat hard 12/11/2022[facility] [place] of Occupational Health - Occupational Stress QuestionnaireAnswerDate RecordedDo you feel stress - tense, restless, nervous, or anxious, or unable to sleep at night because yourmind is troubled all the time - these days?Only a rvukzr6012/11/2022Exercise Vital SignAnswerDate Recorded On average, how many [...] degree you have received?11th grade12/10/2022Estimated Date of QoqtaeghZpejixelLbp26/06/2025Based on last menstrual period of 05/16/2024Sex and Gender InformationValueDate RecordedSex Assigned at XralmLupfla03/25/2023 10:10 AM EDTLegal RgoEnpbfj44/15/2023 6:51 PM EDTGender AdwppfjtMpnsks51/25/2023 10:10 AM EDTSexual OrientationNot on filedocumented as [...] Patient states that she is also having [place] thayer and these have been ongoing and starting to worm picker a little patient advised to start timing and monitoring theseand if worsens to head over also watch for increase in discharge and water breaking. Patient advised if questions after our business hours reach out the [facility] and they are able to guide her also. PVU documented in this encounter Plan of Treatment DateTypeDepartmentCare Team (Latest Contact Info)Wliajefynca75/19/2025 1:20 PM ESTRoutine [facility] [address] [facility] [place] [phone] Doc Thomas DO [address] [facility] [place] [address] documented as of this encounter Visit Diagnoses Not on filedocumented in this encounter Care Teams Team MemberRelationshipSpecialtyStart DateEnd Date Danny Schuler MD [address] [facility] [address] [place] [address] PCP - GeneralFamily Medicine07/24/22 Danny Schuler MD [address] [place] [address] PCP - Ziggy Richard06/16/20documented as of this encounter
--- OUTSIDE RECORDS SUMMARY | 2025-01-30 07:10 | XMS_ITS | Encounter Summary ---
Author Organization [facility] Address [address] [place] [address] Care Team Providers Care Public Relations Account Supervisor Name Role Phone Danny Payne MD Primary Care Provider [phone] Danny Payne MD Unavailable [phone] Encounter Details DateTypeDepartmentCare Team (Latest Contact Info)Gshdzyvycyq29/05/2025Clinisync Result Encounter [facility] External Department Unsolicited Sintia Thomas, DO [address] [facility] [place] [address] Social History Tobacco UseTypesPacks/DayYears UsedDateSmoking Tobacco: Some [...] relatives?Once a week12/11/2022How often do you attend adventism or jew services?More than 4 times per year12/11/2022o you belong to any clubs or organizations such as adventism groups, unions, fraLifesum or athletic groups, or school groups?No12/11/2022How often [...] food, housing, medical care, and heating?Somewhat hard 12/11/2022[facility] [place] of Occupational Health - Occupational Stress QuestionnaireAnswerDate RecordedDo you feel stress - tense, restless, nervous, or anxious, or unable to sleep at night because yourmind is troubled all the time - these days?Only a rgzctm2412/11/2022Exercise Vital SignAnswerDate Recorded On average, how many [...] degree you have received?11th grade12/10/2022Estimated Date of LdndgbqxKolzivpyMin92/06/2025Based on last menstrual period of 05/16/2024Sex and Gender InformationValueDate RecordedSex Assigned at UuqzlJpzhns73/25/2023 10:10 AM EDTLegal DicDrqiex14/15/2023 6:51 PM EDTGender XozflhjdNhqhev02/25/2023 10:10 AM EDTSexual OrientationNot on filedocumented as of this encounter Plan of Treatment DateTypeDepartmentCare Team (Latest Contact Info)Glbytbkncrq02/19/2025 1:20 PM ESTRoutine [facility] [address] [facility] [phone] Sintia Thomas DO [address] [facility] [address] [place], [place] [phone] documented as of this encounter Procedures Procedure NamePriorityDate/TimeAssociated DiagnosisCommentsUS OB BPP W NON-QHEZGX5001/20/2025 5:10 PM EST documented in this encounter Results * US OB BPP W NON-STRESS (01/20/2025 5:10 PM EST)Anatomical Region LateralityModalityOtherSpecimen (Source)Anatomical Location / Laterality Collection Method / VolumeCollection TimeReceived Time01/20/2025 5:10 PM EST Narrative 01/20/2025 5:13 PM EST [facility] ?[address] ? [place] [address] ? Ultrasound Report ? Signed ? Patient: ALETA CASTRO ?MR#: [id number] ?? : 2000 ?Acct:[id number] ?? Age/Sex: 24 / F ?ADM Date: 01/20/25 ?? Loc: [facility] ? Attending Dr: Sintia Thomas D.O. ? Ordering Physician: Sintia Thomas D.O. ?? Date of Service: 01/20/25 ?? Procedure(s): US OB BPP w non-stress ?? Accession Number(s): [id number] ? cc: Sintia Thomas D.O.; DANNY PAYNE ? [facility] ? [address] ? [place] [address] ? Patient Name: ?? ALETA N RAKEL ? MRN: [facility]:[id number] ? date: 2000 ?Sex: F ?? Assigned Patient Location: [facility] ?? Current Patient Location: ? Accession/Order Number: [id number] ?? Exam Date: 01/20/2025 ??15:17 ?Report Date: [...] Dictation Location: RADIO-PC-20 ? Electronically authenticated by: [id number] ??Y ?? Date: 01/20/2025 ??17:10 ? Dictated By: ?Loi Ellington D.O. ? Signed By: ?11/05/25 1713 ? DD/ 1710 ? TD/TT: ? Tape Cutting Machine Operator: Procedure Note Radiology, Radiologist, MD - 11/05/2025 [place] [address] Ultrasound Report Signed Patient: ALETA CASTRO NMR#: [id number] : 2000Acct:[id number] Age/Sex: 24 / FADM Date: 01/20/25 Loc: [facility] Attending Dr: Sintia Thomas D.O. Ordering Physician: Sintia Thomas D.O. Date of Service: 01/20/25 Procedure(s): US OB BPP w non-stress Accession Number(s): [id number] cc: Sintia Thomas D.O.; DANNY PAYNE The [place] [id number] Patient Name: ALETA CASTRO MRN: [id number] date: 2000 Sex: F Assigned Patient Location: [facility] Current Patient Location: Accession/Order Number: [id number] Exam Date: 01/20/2025 15:17 Report Date: 01/20/2025 [...] Ellington M.D. 01/20/2025 5:10 PM Dictation Location: [place] [address] Electronically authenticated by: [id number] Y Date: 7:10 Dictated By: Loi Ellington D.O. Signed By:01/20/251712 DD/ 09 TD/TT: Tape Cutting Machine Operator: Authorizing ProviderResult TypeResult StatusCorey William DOCLINISYNC IMAGINGFinal Result documented in this encounter Visit Diagnoses Not on filedocumented in this encounter Care Teams Team MemberRelationshipSpecialtyStart DateEnd Date Danny Payne MD [address] [place] [address] PCP - GeneralFamily Medicine07/24/22 Danny Payne MD [address] [place] [address] PCP - Ziggy Richard06/16/20documented as of this encounter
== END 2025-01-30 09:17 | disposition home or self-care (01) ==
LOC: FBCO 07:02 → FBC 07:13
PROVIDERS: PCP Family Medicine; Visit Provider Obstetrics & Gynecology
DX: O99.283 Endocrine, nutritional and metabolic diseases complicating pregnancy, third trimester (principal)
CPT/HCPCS: 59025

== ENCOUNTER 2025-02-03 14:44 | Outpatient (OUT) | payer BC, SELFPAY ==
--- NOTE | 2025-02-03 | US_ITS ---
The [address] [address] Patient Name: ALETA ELLINGTON MRN: [id number] date: 2000 Sex: F Assigned Patient Location: US Current Patient Location: Accession/Order Number: [id number] Exam Date: 02/03/2025 14:59 Report Date: 02/03/2025 23:41 At the request of: SINTIA MARIE DO Procedure: US OB BPP w non-stress Ultrasound biophysical profile HISTORY: Gabby's disease Adequate breathing movement, gross body movement, tone and amniotic fluid volume for total score of 8 out of 8. The amniotic fluid index is 13.1cm within normal limits. The heart rate 152 bpm. US/US OB BPP w non-stress IMPRESSION: Adequate ultrasound biophysical profile Impression dictated by: Loi Ellington M.D. 02/03/2025 11:41 PM Dictation Location: [place] [address] Electronically authenticated by: [id number] Y Date: 02/03/2025 23:41
--- OUTSIDE RECORDS SUMMARY | 2025-02-03 14:49 | XMS_ITS | CCD ---
Author Organization [facility] CliniSysd Care Team Providers Care Machining Manager Name Role Phone BECERRIL, DAVID P [...] able Rosalie Payne MD Primary Care Provider [phone] Pocanaly, Myron Washburn Admitting Unavailable PocosMyron Referring [...] Allergen(s)Allergy TypeDate of OnsetReaction(s) FacilityLatex (1 source)LatexSubstance Eiutunc73-30-7926ErueIxfet HealthMacrolides (antibiotic) (1 source)AzithromycinDrug Wreufdz72-13-2813DvwvvMuwpx Health (20 sources)Azithromycin; Translations: [azithromycin]Drug Neugqdf15-76-9406 [facility] (11 sources)Latex; Translations: [Latex]Propensity to adverse reactions to drug 64-56-7620AifhRljhx Health (1 source)AzithromycinDrug Didafzm75-53-8220N[facility] (1 source)natural latex rubberDrug allergy (disorder)[facility] (2 sources)Banana Extract; Translations: [Banana]Drug AllergyVomiting (disorder) [facility] (20 sources)Midodrine; Translations: [midodrine]Drug Sgbbknd66-31-3763HsctzlynSouth[facility] (20 sources)LatexAllergy to broyxknky10-23-3839CricW[facility] (1 source)AzithromycinDrug Mwpcyst21-56-1151YriveopdpUc [facility] (1 source)LatexDrug allergy (disorder)04-95-1969CduggidljUc [facility] Medications Current Medications MedicationDrug Class(es)DatesSig (Normalized)Sig (Original)[id number] 200 actuat albuterol 0.09 mg/actuat metered dose inhaler (2 sources)beta2-Adrenergic AgonistStart: 25-09-1409sefo 2 puff(s) by inhalation four times daily as neededAlbuterol Sulfate HFA 108 (90 Base) MCG/ACT 2 puffs Inhalation 4 times a day prn Aug, ActiveStart: 71-73-8599azhh 2 puff(s) by inhalation four times daily as neededAlbuterol Sulfate HFA 108 (90 Base) MCG/ACT 2 puffs Inhalation 4 times a day prn Aug, Not-Taking/PRN fluconazole 150 mg oral tablet (2 sources)Azole AntifungalStart: 12-09-2024 End: 38-97-5694tyflovdjvpk (Diflucan) 150 MG tablet Indications: Yeast infection Take 1 tablet (150 mg) by mouth 1(one) time for 1 dose Repeat in 7 days if symptoms persist. 2 tablet 12/09/2024 12/09/2024 Activefluticasone propionate 0.05 mg/actuat metered dose nasal spray (4 sources)CorticosteroidStart: 12-25-8218eyxcfomkibv (Flonase) 50 MCG/ACT nasal sprayStart: 11-74-4784rmbz 1 spray(s) nasal route once dailyFluticasone Propionate 50 MCG/ACT 1 spray in each nostril Nasally Once a day for 14 15 Mar, 2023 ActiveStart: 44-97-5563ripi 2 spray(s) nasal route once daily as needed Fluticasone Propionate 50 MCG/ACT 2 sprays Nasally Once a day for 14 day(s) Aug, Not-Taking/PRNStart: 15-31-4656cxie 2 spray(s) nasal route once daily Fluticasone Propionate 50 MCG/ACT 2 sprays Nasally Once a day for 14 day(s) Aug, Activeibuprofen 600 mg oral tablet (20 sources)Nonsteroidal Anti-inflammatory DrugStart: 94-92-2518jgih 1 tablet by mouth four times daily as needed for painibuprofen (ADVIL;MOTRIN) 600 MG tablet Take 1 tablet by mouth 4 times daily as needed for Pain 30 tablet 0 12/14/2020 Active End: 65-64-2070saoroznez 200 MG tablet Take by mouth. 07/16/2024 Discontinued magnesium oxide 400 mg oral tablet (5 sources)Start: 07-16-2024 End: 18-66-1288ghpd 1 tablet by mouth once dailymagnesium oxide (Mag-Ox) 400 MG tablet Indications: Cluster headache, not intractable, unspecified chronicity pattern Take 1 tablet (400 mg) by mouth Daily 30 tablet 6 07/16/2024 08/15/2024 Activeondansetron 4 mg oral tablet (20 sources)Serotonin-3 Receptor AntagonistStart: 04-62-8245ueeu 1 tablet by mouth every six hours as needed for nausea and nausea, then take 1 tablet by mouthevery six hours as needed for nausea and nauseaondansetron (Zofran) 4 MG tablet Indications: Nausea and vomiting in ([facility]) Take 1 tablet (4 mg) by mouth every 6 (six) hours if needed for nausea or vomiting for up to 30 doses Take 1 tablet by mouth every 6 hours as needed for nausea. 30 tablet 12/23/2024 ActiveStart: 10-05-2024 End: 36-74-0018zwvt 1 tablet by mouth every six hours for nauseaondansetron ODT (Zofran-ODT) 4 MG disintegrating tablet Indications: Nausea and vomiting during ([facility]) Take 1 tablet (4 mg) by mouth every 6 (six) hours if needed for nausea or vomiting 30 tablet 3 10/05/2024 11/04/2024 ActiveStart: 08-26-2024 End: 58-74-9282lnzd 1 tablet by mouth every six hours for nauseaondansetron ODT (Zofran-ODT) 4 MG disintegrating tablet Indications: Nausea and vomiting during ([facility]) Take 1 tablet (4 mg) by mouth every 6 (six) hours if needed for nausea or vomiting 30 tablet 3 08/26/2024 09/30/2024 ActiveStart: 07-06-2024 End: 65-25-1391ztuj 1 tablet by mouth every six hours for nauseaondansetron ODT (Zofran-ODT) 4 MG disintegrating tablet Indications: Nausea and vomiting during Take 1 tablet (4 mg) by mouth every 6 (six) hours if needed for nausea or vomiting 30 tablet 2 07/06/2024 08/05/2024 Activepenicillin v potassium 500 mg oral tablet (1 source)Start: 18-44-1919htpo 1 tablet by mouth every eight hoursPenicillin V Potassium 500 MG 1 tablet Orally tid for 10 day(s) 14 Apr, 2021 Active polysaccharide iron complex 391 mg oral capsule (5 sources)Start: 11-05-2024 End: 67-35-0759sxuf 1 capsule by mouth once dailyiron polysaccharides (ProFe) 391.3 (180 Fe) MG capsule Indications: Low hemoglobin Take 1 capsule (391.3 mg) by mouth Daily 30 capsule 3 11/05/2024 12/05/2024 ActivetiZANidine 4 mg oral tablet (2 sources)Central alpha-2 Adrenergic AgonistStart: 65-69-2423fdmn 1 tablet by mouth every eight hours as needed for paintiZANidine (ZANAFLEX) 4 MG tablet Take 1 tablet by mouth every 8 hours as needed (pain and muscle tension/cramps) 10 tablet 0 12/14/2020 Active Completed/Discontinued Medications MedicationDrug Class(es)DatesSig (Normalized)Sig (Original)acetaminophen 325 mg oral tablet (1 source)Start: 09-19-2020 End: 24-93-5609ovcuvqkyneypx (TYLENOL) tablet 650 mgCitalopram (7 sources)Serotonin Reuptake InhibitorCitalopram Hydrobromide Not-Taking/PRN take 1 tablet by mouth once dailycitalopram (CELEXA) 20 MG tablet Take 20 mg by mouth daily 0 ActiveCitalopram Hydrobromide Activeclotrimazole 10 mg oral lozenge (3 sources)Azole AntifungalStart: 26-30-8498Avcassjjixtk 10 MG 1 wenceslao Mouth/Throat Three times a day for 7 day(s) Apr, Not-Taking/PRN medroxyPROGESTERone (4 sources)ProgestinDepo-Provera Not-Taking/PRNDepo-Provera Activemetoclopramide 10 mg oral tablet (12 sources)Dopamine-2 Receptor AntagonistStart: 07-16-2024 End: 20-52-5707iliwajvrtrphbr (Reglan) 10 MG tablet Indications: Nausea/vomiting in [...] tablet (2 sources)Nonsteroidal Anti-inflammatory DrugStart: 05-24-2021 End: 11-14-3908cizthgef sodium (ANAPROX) tablet 550 mgStart: 25-67-0339rfuq 1 tablet by mouth twice daily at mealtimenaproxen (NAPROSYN) 500 MG tablet Take 1 tablet by mouth 2 times daily (with meals) 20 tablet 1 05/24/2021 Active pantoprazole 40 mg delayed release oral tablet (17 sources)Proton Pump InhibitorStart: 02-17-2024 End: 80-70-9013afcj 1 tablet by mouth before mealtimepantoprazole (ProtoNix) 40 MG EC tablet Take 40 mg by mouth in the morning. Take before meals. 02/17/2024 09/30/2024 DiscontinuedpredniSONE 20 mg oral tablet (3 sources)Start: 30-46-3372ptxr 1 tablet by mouth every twelve hourspredniSONE 20 MG 1 tablet Orally 2 times a day for 5 day(s) Aug, Not-Taking/PRN Start: 34-39-5442ffzf 1 tablet by mouth every twelve hourspredniSONE 20 MG 1 tablet Orally bid for 5 day(s) Apr, Active Problems Active Problems Problem ClassificationProblemDateDocumented DateEpisodic/ChronicAbdominal pain (11 sources)Pelvic and perineal pain; Translations: [Right lower quadrant pain] Onset: 30-14-2122IpodxmqdSbglveq dysrhythmias (20 sources)Postural orthostatic tachycardia syndrome ; Translations: [Postural orthostatic tachycardia syndrome (POTS)]Onset: 350858-78-2341Ssnmsay Cardiac dysrhythmias (4 sources)Palpitations; Translations: [Palpitations]80-68-2659Ajlwubiw Coagulation and hemorrhagic disorders (1 source)Qualitative platelet defects; 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]Onset: 85-60-5289BnbnykjXffsuggbue disorders (4 sources)Gastroesophageal reflux disease; Translations: [Gastro-esophageal reflux disease without esophagitis]77-54-6599QloxvlkAeifewey; including migraine (1 source)Cluster headache; Translations: [Cluster headache syndrome, unspecified, not intractable]65-50-1013IxnyyeqKzhgechqrxmzw and screening for infectious disease (4 sources)Contact with and (suspected) exposure to other viral communicable diseases; Translations: [Exposureto sexually transmissible disorder]Onset: 04-07-2021 Resolved: 90-02-4903AvdiqdtgTxglamv and fatigue (20 sources)Fatigue; Translations: [Chronic fatigue, unspecified]Onset: 194654-26-6436YkgveutZkdfvmvef disorders (20 sources)Disorder of menstruation; Translations: [Irregular menstruation, unspecified]Onset: 147234-57-8480FfunnidMclugfp (3 sources)Candidal stomatitis; Translations: [Mycosis]Onset: 05-11-2021 Resolved: 09-81-5076DazogknhKlviuz and vomiting (4 sources)Nausea; Translations: [Nausea]16-47-5804PnbwyhgmDrrwu bone disease and musculoskeletal deformities (20 sources)[place] Schlatter disease; 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]Onset: 934564-60-2889ZkrtdonYsnir circulatory disease (1 source)Postural orthostatic tachycardia lfhzywvw62-76-4514EwpccimlAtmye complications of (1 source)Vomiting of , unspecified; Translations: [Unspecified vomiting of , unspecified as to episode of care or not applicable] 10-08-6722CspsajtcGxcll gastrointestinal disorders (2 sources)Diarrhea; Translations: [Diarrhea, unspecified]05-05-9229Nxkukiap Other gastrointestinal disorders (2 sources)Diarrhea, unspecified; Translations: [Diarrhea]46-67-0785Fpwdfdlh Other gastrointestinal disorders (1 source)Dysphagia; Translations: [Dysphagia, unspecified]83-40-4585Oytkswix Other gastrointestinal disorders (1 source)Dysphagia, unspecified; Translations: [Dysphagia, unspecified] 20-30-5655NnrjpbtjKlbvf injuries and conditions due to external causes (1 source)Closed injury of head; Translations: [Unspecified injury of head, initial encounter]EpisodicOther injuries and conditions due to external causes (1 source)Injury of coccyx; Translations: [Unspecified injury of lower back, initial encounter]EpisodicOther injuries and conditions due to external causes (2 sources)Injury of left knee; Translations: [Unspecified injury of left lower leg, initial encounter]71-65-5381QjvztetkMoseo nutritional; endocrine; and metabolic disorders (20 sources)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 imbalance; Translations: [Other obesity due to excess calories]Onset: 770870-78-8733KwwxjciYjdam nutritional; endocrine; and metabolic disorders (1 source)H/O: xarpgjcwzlujjp72-18-4442MzriwkwjXuafn and delivery including normal (20 sources); Translations: [Encounter for supervision of normal , unspecified, unspecified trimester]31-87-6635TxhbvuvxParxo screening for suspected conditions (not mental disorders or infectious disease) (8 sources)Encounter for screening for malignant neoplasm of cervix; Translations: [Patient encounter status]Onset: 48-16-4099DgofrejuSuujk upper respiratory infections (9 sources)Streptococcal sore throat; Translations: [Strep throat]Onset: 05-01-2021 Resolved: 53-85-8039FhvnqcfeMfwbceiy codes; unclassified (2 sources)Gestation period, 11 weeks; Translations: [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 ]14-48-6041McrepzwgMvyhzvrb codes; unclassified (2 sources)Gestation period, 15 weeks; Translations: [15 weeks gestation of ]59-93-0818LisfphctBbiflexm codes; unclassified (2 sources)Gestation period, 19 weeks; Translations: [19 weeks gestation of ]25-56-1372HfmygtdxRsaveshl codes; unclassified (2 sources)Gestation period, 23 weeks; Translations: [23 weeks gestation of ]70-16-1336QcuybgdhWtcphifu codes; unclassified (2 sources)Gestation period, 27 weeks; Translations: [27 weeks gestation of ]68-02-8770XoxreyyqVzhqiikt codes; unclassified (2 sources)Gestation period, 29 weeks; Translations: [29 weeks gestation of ]53-93-8179SxdmcfvcOhubutid codes; unclassified (2 sources)Gestation period, 31 weeks; Translations: [31 weeks gestation of ]61-59-6996IgkyfkckJfzcelrp codes; unclassified (2 sources)Gestation period, 33 weeks; Translations: [33 weeks gestation of ]13-98-6610QabqmrqfKbakolyh codes; unclassified (2 sources)Gestation period, 35 weeks; Translations: [35 weeks gestation of ]23-33-4839TdkwqcurFvvhcsipk-related disorders (20 sources)Cigarette smoker ; Translations: [Nicotine dependence, cigarettes, uncomplicated]Onset: 304997-14-3755BfudgyhVfodpywyhsw injury; contusion (1 source)Contusion of left knee; Translations: [Contusion of left knee, initial encounter]EpisodicSyncope (2 sources)Syncope; Translations: [Syncope]Onset: 93-39-9612JtqidjapMmcspmq disorders (20 sources)Evan thyroiditis; Translations: [Autoimmune thyroiditis]Onset: 046033-52-4711YgcduanWpydhfjkpfdm (2 sources)Unknown / UNK(Unknown)Onset: 45-93-8138Ovorpzsalnhc (2 sources)New Patient; Translations: [New Patient]Onset: 29-66-3912Tsijuqtottka (2 sources)POTSOnset: 11-27-2024 Past or Other Problems Problem ClassificationProblemDateDocumented DateEpisodic/ChronicChronic obstructive pulmonary disease and bronchiectasis (1 source)Bronchitis, not specified as acute or chronicOnset: 08-21-2021 Resolved: 14-12-9436JjfnxyruMcmmazwkb (5 sources)Influenza; Translations: [Influenza A]Other circulatory disease (4 sources)Orthostatic hypotension; Translations: [ORTHOSTATIC HYPOTENSION] Onset: 73-43-0255LhiuvmsvJtkzg circulatory disease (20 sources)Low blood pressure; Translations: [Hypotension, unspecified]Onset: 384039-09-4131DnyvktchKbuda non-traumatic joint disorders (20 sources)Pain in left knee; Translations: [Pain in joint, lower leg]Onset: 440984-86-4525VvvsatuwXhuts nutritional; endocrine; and metabolic disorders (20 sources)Body mass index 25-29 - overweight; Translations: [Overweight]Onset: 12-10-2022 Resolved: 199550-48-7468WezjlambTgzlaxv cyst (20 sources)Cyst of ovary; Translations: [Unspecified ovarian cyst, unspecified side]Onset: 812603-85-9710Ddqhxrfs Results Test NameValueInterpretationReference RangeFacilityALL THYROID STIM HORMONEon 38-97-0019Lctwjglzzcztvh and review of laboratory resultsAbnormalNOPutnam County [facility] Hospital TSH Qn0.159 m[IU]/LLowNOTN HealthcareCLINISYNCNOMS HealthcareUS OB BPP W NON-STRESSon 21-03[place]50[place] [address] Ultrasound Report Signed Patient: ALETA CASTRO MR#: [id number] : 2000 Acct:[id number] Age/Sex: 24 / F ADM Date: 01/23/25 Loc: US Attending Dr: Doc Thomas D.O. Ordering Physician: Doc Thomas D.O. Date of Service: 01/23/25 Procedure(s): US OB BPP w non-stress Accession Number(s): [id number] cc: Doc Thomas D.O.; ROSALIE PAYNE [place] [id number] Patient Name: ALETA CASTRO MRN: [id number] date: 2000 Sex: F Assigned Patient Location: [facility] Current Patient Location: [facility] Accession/Order Number: [id number] Exam Date: 01/23/2025 08:41 Report Date: 01/23/2025 [...] Dalton M.D. 01/23/2025 9:25 AM Dictation Location: [place] [address] Electronically authenticated by: [id number] Y Date: 01/23/2025 09:25 Dictated By: Emmanuel Dalton M.D. Signed By: 01/23/25927 DD/ 4 TD/TT: Time Buyer:NINAHRadiology, Radiologist, - 01/23/2025 [place] [address] Ultrasound Report Signed Patient: ALETA CASTRO MR#: [id number] : 2000 Acct:[id number] Age/Sex: 24 / F ADM Date: 01/23/25 Loc: US Attending Dr: Doc Thomas D.O. Ordering Physician: Doc Thomas D.O. Date of Service: 01/23/25 Procedure(s): US OB BPP w non-stress Accession Number(s): [id number] cc: Doc Thomas D.O.; ROSALIE PAYNE [place] [address] Patient Name: ALETA CASTRO MRN: [id number] date: 2000 Sex: F Assigned Patient Location: [facility] Current Patient Location: [facility] Accession/Order Number: [id number] Exam Date: 01/23/2025 08:41 Report Date: 01/23/2025 [...] Dalton M.D. 01/23/2025 9:25 AM [facility]ation [facility] Electronically authenticated by: [id number] Y Date: 01/23/2025 09:25 Dictated By: Emmanuel Dalton M.D. Signed By: 01/23/25927 DD/ 4 TD/TT: Time Buyer: KYE HealthcareRadiology Study observation (narrative)NOMS HealthcareUS OB BPP W NON-STRESSOrdered By: Radiologist Radiology on 27-94-3076AUAZ [employer] Work Phone: US OB BPP W NON-STRESSon 19-22-7360Yet[place]d, [place] [address] Ultrasound Report Signed Patient: ALETA CASTRO MR#: [id number] : 2000 Acct:[id number] Age/Sex: 24 / F ADM Date: 01/20/25 Loc: [facility] Attending Dr: Doc Thomas D.O. Ordering Physician: Doc Thomas D.O. Date of Service: 01/20/25 Procedure(s): US OB BPP w non-stress Accession Number(s): [id number] cc: Doc Thomas D.O.; ROSALIE PAYNE [place] [id number] Patient Name: ALETA CASTRO MRN: [id number] date: 2000 Sex: F Assigned Patient Location: [facility] Current Patient Location: Accession/Order Number: [id number] Exam Date: 01/20/2025 15:17 Report Date: 01/20/2025 [...] Ellington M.D. 01/20/2025 5:10 PM Dictation Location: [facility] Electronically authenticated by: [id number] Y Date: 01/20/2025 17:10 Dictated By: Loi Ellington D.O. Signed By: 01/20/251712 DD/ 09 TD/TT: Time Buyer:MARITNEadiologkehinde, Radiologist, - 01/20/2025 [place] [address] Ultrasound Report Signed Patient: ALETA CASTRO MR#: [id number] : 2000 Acct:[id number] Age/Sex: 24 / F ADM Date: 01/20/25 Loc: [facility] Attending Dr: Doc Thomas D.O. Ordering Physician: Doc Thomas D.O. Date of Service: 01/20/25 Procedure(s): US OB BPP w non-stress Accession Number(s): [id number] cc: Doc Thomas D.O.; ROSALIE PAYNE [place] [address] Patient Name: ALETA CASTRO MRN: [id number] date: 2000 Sex: F Assigned Patient Location: [facility] Current Patient Location: Accession/Order Number: [id number] Exam Date: 01/20/2025 15:17 Report Date: 01/20/2025 [...] Ellington M.D. 01/20/2025 5:10 PM Dictation Location: [facility] Electronically authenticated by: [id number] Y Date: 01/20/2025 17:10 Dictated By: Loi Ellington D.O. Signed By: 01/20/251712 DD/ 09 TD/TT: Time Buyer: [facility] HealthcareRadiology Study observation (narrative)NOMS HealthcareUS OB BPP W NON-STRESSOrdered By: Radiologist Radiology on 48-48-1522R[facility] Work Phone: Urinalysis macro (dipstick) panel [...] mg/dLNOMS HealthcareNOMS HealthcareUS OB BPP W NON-STRESSon 19-97-[address] [address] Ultrasound Report Signed Patient: ALETA CASTRO MR#: [id number] : 2000 Acct:[id number] Age/Sex: 24 / F ADM Date: 01/11/25 Loc: US Attending Dr: Doc Thomas D.O. Ordering Physician: Doc Thomas D.O. Date of Service: 01/11/25 Procedure(s): US OB BPP w non-stress Accession Number(s): [id number] cc: Doc Thomas D.O.; ROSALIE PAYNE The [address] [id number] Patient Name: ALETA CASTRO MRN: [id number] date: 2000 Sex: F Assigned Patient Location: [facility] Current Patient Location: Accession/Order Number: [id number] Exam Date: 01/11/2025 15:03 Report Date: 01/11/2025 [...] Aguilar M.D. 01/11/2025 9:15 PM Dictation Location: [place] [address] Electronically authenticated by: [id number] Y Date: 01/11/2025 21:15 Dictated By: Deshaun Aguilar M.D. Signed By: 01/11/252117 DD/ 14 TD/TT: Time Buyer:MARTINEadiology, Radiologist, MD - 01/11/2025 [place] [address] Ultrasound Report Signed Patient: ALETA CASTRO MR#: [id number] : 2000 Acct:[id number] Age/Sex: 24 / F ADM Date: 01/11/25 Loc: US Attending Dr: Doc Thomas D.O. Ordering Physician: Doc Thomas D.O. Date of Service: 01/11/25 Procedure(s): US OB BPP w non-stress Accession Number(s): [id number] cc: Doc Thomas D.O.; ROSALIE PAYNE [place] [phone] Patient Name: ALETA CASTRO MRN: [id number] date: 2000 Sex: F Assigned Patient Location: [facility] Current Patient Location: Accession/Order Number: [id number] Exam Date: 01/11/2025 15:03 Report Date: 01/11/2025 [...] Aguilar M.D. 01/11/2025 9:15 PM Dictation Location: [place] [address] Electronically authenticated by: [id number] Y Date: 01/11/2025 21:15 Dictated By: Deshaun Aguilar M.D. Signed By: 01/11/252117 DD/ 14 TD/TT: Time Buyer: KYE HealthcareRadiology Study observation (narrative)NOMS HealthcareUS OB BPP W NON-STRESSOrdered By: Radiologist Radiology on 55-47-5027QYWZ Healthcare Work Phone: Urinalysis macro (dipstick) panel [...] mg/dLNOMS HealthcareNOMS HealthcareUS OB BPP W NON-STRESSon 96-71-4999ZgfLynd, [place] [address] Ultrasound Report Signed Patient: ALETA CASTRO MR#: [id number] : 2000 Acct:[id number] Age/Sex: 24 / F ADM Date: 01/02/25 Loc: US Attending Dr: Doc Thomas D.O. Ordering Physician: Doc Thomas D.O. Date of Service: 01/02/25 Procedure(s): US OB BPP w non-stress Accession Number(s): [id number] cc: Doc Thomas D.O.; ROSALIE PAYNE [place] [phone] Patient Name: ALETA CASTRO MRN: [id number] date: 2000 Sex: F Assigned Patient Location: [facility] Current Patient Location: Accession/Order Number: [id number] Exam Date: 01/02/2025 09:00 Report Date: 01/02/2025 [...] Dalton M.D. 01/02/2025 3:02 PM Dictation Location: [place] [address] Electronically authenticated by: [id number] Y Date: 01/02/2025 15:02 Dictated By: Emmanuel Dalton M.D. Signed By: 01/02/25 1505 DD/ 1502 TD/TT: Time Buyer:TBHRadiology, Radiologist, - 01/02/2025 [place] [address] Ultrasound Report Signed Patient: ALETA CASTRO MR#: [id number] : 2000 Acct:[id number] Age/Sex: 24 / F ADM Date: 01/02/25 Loc: US Attending Dr: Doc Thomas D.O. Ordering Physician: Doc Thomas D.O. Date of Service: 01/02/25 Procedure(s): US OB BPP w non-stress Accession Number(s): [id number] cc: Doc Thomas D.O.; ROSALIE PAYNE [address] [address] Patient Name: ALETA CASTRO MRN: [id number] date: 2000 Sex: F Assigned Patient Location: [facility] Current Patient Location: Accession/Order Number: [id number] Exam Date: 01/02/2025 09:00 Report Date: 01/02/2025 [...] Dalton M.D. 01/02/2025 3:02 PM Dictation Location: [place] [address] Electronically authenticated by: [id number] Y Date: 01/02/2025 15:02 Dictated By: Emmanuel Dalton M.D. Signed By: 01/02/25 1500 DD/ 150 TD/TT: Time Buyer: KYE HealthcareRadiology Study observation (narrative)NOMS HealthcareUS OB BPP W NON-STRESSOrdered By: Radiologist Radiology on 86-75-7492POFPMetropolitan Saint Louis Psych[facility] Work Phone: aLL THYROID STIM HORMONEon 78-25-1300Wgkhypngputdfv and review of laboratory resultsAbnoKindred Healthcare Qn0.131 m[IU]/LLow NOMS HealthcareCLINISYNCNOMS HealthcareUS OB BPP W NON-STRESSon 12-26-2024 [place] [address] Ultrasound Report Signed Patient: ALETA CASTRO MR#: [id number] : 2000 Acct:[id number] Age/Sex: 24 / F ADM Date: 12/26/24 Loc: US Attending Dr: Doc Thomas D.O. Ordering Physician: Doc Thomas D.O. Date of Service: 12/26/24 Procedure(s): US OB BPP w non-stress Accession Number(s): [id number] cc: Doc Thomas D.O.; ROSALIE PAYNE [address] [address] Patient Name: ALETA CASTRO MRN: [id number] date: 2000 Sex: F Assigned Patient Location: [place] Current Patient Location: Accession/Order Number: [id number] Exam Date: 12/26/2024 09:00 Report Date: 12/26/2024 [...] Aguilar M.D. 12/26/2024 11:19 AM Dictation Location: [place] [address] Electronically authenticated by: [id number] Y Date: 12/26/2024 11:19 Dictated By: Deshaun Aguilar M.D. Signed By: 12/26/24 1122 DD/ 1119 TD/TT: Time Buyer:TBHRadiology, Radiologist, MD - 12/26/2024 [place] [address] Ultrasound Report Signed Patient: ALETA CASTRO MR#: [id number] : 2000 Acct:[id number] Age/Sex: 24 / F ADM Date: 12/26/24 Loc: US Attending Dr: Doc Thomas D.O. Ordering Physician: Doc Thomas D.O. Date of Service: 12/26/24 Procedure(s): US OB BPP w non-stress Accession Number(s): [id number] cc: Doc Thomas D.O.; ROSALIE PAYNE The [address] [address] Patient Name: ALETA CASTRO MRN: [id number] date: 2000 Sex: F Assigned Patient Location: [place] Current Patient Location: Accession/Order Number: [id number] Exam Date: 12/26/2024 09:00 Report Date: 12/26/2024 [...] Aguilar M.D. 12/26/2024 11:19 AM Dictation Location: [place] [address] Electronically authenticated by: [id number] Y Date: 12/26/2024 11:19 Dictated By: Deshaun Aguilar M.D. Signed By: 12/26/24 1122 DD/ 1119 TD/TT: Time Buyer: KYE HealthcareRadiology Study observation (narrative)NOMS HealthcareUS OB BPP W NON-STRESSOrdered By: Radiologist Radiology on 77-70-5940EXMT Healthcare Work Phone: US OB GROWTHon [phone], [place] [address] Ultrasound Report Signed Patient: ALETA CASTRO MR#: [id number] : 2000 Acct:[id number] Age/Sex: 24 / F ADM Date: 12/26/24 Loc: US Attending Dr: Doc Thomas D.O. Ordering Physician: Doc Thomas D.O. Date of Service: 12/26/24 Procedure(s): US OB growth Accession Number(s): [id number] cc: Doc Thomas D.O.; ROSALIE PAYNE [place] [id number] Patient Name: ALETA CASTRO MRN: [id number] date: 2000 Sex: F Assigned Patient Location: Current Patient Location: Accession/Order Number: [id number] Exam Date: 12/26/2024 09:00 Report Date: 12/26/2024 11:31 At the request of: DOC THOMAS DO Procedure: US OB growth Obstetric ultrasound for growth INDICATION: Evan's disease FINDINGS: Single live anterior cephalic presentation longitudinal lie. Amniotic fluid index 12.4 cm between the gestational age fifth and 95th percentile. Largest pocket of fluid 5.1 cm. heart rate 1 52 bpm. motion documented by the fire production operator.. Estimated weight 2093 g 71.4%. Gestation age 32 weeks and 0 days. Biparietal diameter 7.93 m. Head circumference 30.7 cm. Otherwise the 10.6 cm. Abdominal circumference 28.9 cm. Femur length 6.4 cm. US/US OB growth IMPRESSION: Single live intrauterine of approximately 30 weeks Impression dictated by: Deshaun Aguilar M.D. 12/26/2024 11:31 AM Dictation Location: [place] [address] Electronically authenticated by: [id number] Y Date: 12/26/2024 11:31 Dictated By: Deshaun Aguilar M.D. Signed By: 12/26/24 1133 DD/ 1131 TD/TT: Time Buyer:TBHRadiology, Radiologist, MD - 12/26/2024 [place] [address] Ultrasound Report Signed Patient: ALETA CASTRO MR#: [id number] : 2000 Acct:[id number] Age/Sex: 24 / F ADM Date: 12/26/24 Loc: Attending Dr: Doc Thomas D.O. Ordering Physician: Doc Thomas D.O. Date of Service: 12/26/24 Procedure(s): US OB growth Accession Number(s): [id number] cc: Doc Thomas D.O.; ROSALIE PAYNE [address] [address] Patient Name: ALETA CASTRO MRN: [id number] date: 2000 Sex: F Assigned Patient Location: Current Patient Location: Accession/Order Number: [id number] Exam Date: 12/26/2024 09:00 Report Date: 12/26/2024 11:31 At the request of: DOC THOMAS DO Procedure: US OB growth Obstetric ultrasound for growth INDICATION: Evan's disease FINDINGS: Single live anterior cephalic presentation longitudinal lie. Amniotic fluid index 12.4 cm between the gestational age fifth and 95th percentile. Largest pocket of fluid 5.1 cm. heart rate 1 52 bpm. motion documented by the fire production operator.. Estimated weight 2093 g 71.4%. Gestation age 32 weeks and 0 days. Biparietal diameter 7.93 m. Head circumference 30.7 cm. Otherwise the 10.6 cm. Abdominal circumference 28.9 cm. Femur length 6.4 cm. US/US OB growth IMPRESSION: Single live intrauterine of approximately 30 weeks Impression dictated by: Deshaun Aguilar M.D. 12/26/2024 11:31 AM Dictation Location: [place] [address] Electronically authenticated by: [id number] Y Date: 12/26/2024 11:31 Dictated By: Deshaun Aguilar M.D. Signed By: 12/26/24 1133 DD/ 1131 TD/TT: Time Buyer: KYE HealthcareRadiology Study observation (narrative)[facility] HealthcareUS OB GROWTHOrdered By: Radiologist Radiology on 60-01-2751XJZBMetropolitan Saint Louis Psychiatric Center Work Phone: Urinalysis macro (dipstick) panel (U)on 12-23-2024 Bilirubin, UANegativeNegative - 4(70) +++ mg/dLNOMS HealthcareBlood, UANegative Negative - 50 Randall/mcLNOMS HealthcareClarity, UAClearNOMS HealthcareColor, UA YellowNOMS HealthcareGlucose, UA1+Negative - 1999(110) ++++ mg/dLNOTN Healthcare Interpretation and review of laboratory resultsAbnormalNOTN HealthcareKetones, UANegativeNegative - 160(16) ++++ mg/dLNOMS HealthcareLeukocytes, UATrace Negative - 500+++ Rick/mcLNOMS HealthcareNitrite, UANegativeNegative - Positive NOMS HealthcarepH, UA65 - 9NOMS HealthcareProtein, UANegativeNegative - 2000(20) ++++ mg/dLNOMS HealthcareSpec Grav, UA1.0151 - 1.03NOMS HealthcareUrobilinogen, UA2.00.2 - 12 mg/dLNOMS HealthcareNOMS HealthcareUrinalysis macro (dipstick) panel (U)on 76-66-5977Ysxuanaov, UANegativeNegative - 4(70) +++ mg/dLNOMS HealthcareBlood, UANegativeNegative [...] UA0.20.2 - 12 mg/dLNOMS HealthcareNOMS HealthcareOffice Visiton 39-77-3879Zintiw-up visit [id number] Aleta Castro 2000 F Date Provider Department Center 11/27/2024 02268-FLXCRDLESA SINGH TRES [facility] Family History Family Status - Relation Status Age at Mother Alive Father Alive Level of Service:62038 MI OFFICE/OUTPATIENT NEW LOW MDM 30 MINUTES Reason for Visit and Comments: New Patient [632] - New patient here today to establish care with cardiology Syncope [506] POTS [Other] Positive tilt table [Other] 6 months [Other]NormalUnClermont County HospitalUrinalysis macro (dipstick) panel (U)on 86-15-8755Dnuolkqkx, UAPositiveNegative - 4(70) +++ mg/dLNOMS HealthcareComment on [...] 12 mg/dLNOMS HealthcareNOMS HealthcareCA ECHO DOPPLER COMPLETEon [phone], [place] [address] Cardiology Report Signed Patient: ALETA CASTRO MR#: [id number] : 2000 Acct:[id number] Age/Sex: 24 / F ADM Date: 11/12/24 Loc: CARD Attending Dr: Luna Steen Ordering Physician: Luna Steen Date of Service: 11/12/24 Procedure(s): CA echo doppler complete Accession Number(s): [id number] cc: Luna Steen; ROSALIE PAYNE Patient Name: ALETA CASTRO MR#: [id number] : 2000 Exam Date: 11/12/2024 Ordering Doctor: LUNA STEEN [facility] ECHOCARDIOGRAM REPORT PROCEDURE: CA ECHO DOPPLER [...] not included)...TBHRadiology, Radiologist, MD - 11/24/2024 [place] [address] Cardiology Report Signed Patient: ALETA CASTRO MR#: [id number] : 2000 Acct:[id number] Age/Sex: 24 / F ADM Date: 11/12/24 Loc: CARD Attending Dr: Luna Steen Ordering Physician: Luna Steen Date of Service: 11/12/24 Procedure(s): CA echo doppler complete Accession Number(s): [id number] cc: Luna Steen; ROSALIE PAYNE Patient Name: ALETA CASTRO MR#: [id number] : 2000 Exam Date: 11/12/2024 Ordering Doctor: LUNA STEEN [facility] ECHOCARDIOGRAM REPORT PROCEDURE: CA ECHO DOPPLER [...] Signed By: 11/24/24 1640 DD/ 1639 TD/TT: Time Buyer: KYE [facility] HospitalRadiology Study observation (narrative)[facility] CenterCA ECHO DOPPLER COMPLETEOrdered By: Radiologist Radiology on 10-98-4173TPLM Healthcare Work Phone: ecg 12-LEADon [phone], [place] [address] Electrocardiograph Report Signed Patient: ALETA CASTRO MR#: [id number] : 2000 Acct:[id number] Age/Sex: 24 / F ADM Date: 11/12/24 Loc: CARD Attending Dr: Luna Steen Ordering Physician: Luna Steen Date of Service: 11/12/24 Procedure(s): ECG 12 lead Accession Number(s): [id number] cc: [facility] Test Date: 2024-11-12 Pat Name: ALETA CASTRO Department: Room: - Gender: Female Mica Builder: : 2000 Requested By: LUNA STEEN Order Number: [id number] Reading : Lesa Singh Measurements Intervals [place] Rate: 79 P: 42 MI: 158 QRS: 81 QRSD: 90 T: 41 QT: 353 QTc: 405 Interpretive Statements SINUS RHYTHM Normal EKG No previous ECG available for comparison Electronically Signed On 11-13-2024 13:34:21 EDT by Lesa Singh Dictated By: Lesa Singh M.D. Signed By: 11/13/24133311/13/241333 DD/ 1206 TD/TT: Time Buyer:MARTINEadiologSelena busby, - 11/13/2024 [place] [address] Electrocardiograph Report Signed Patient: ALETA CASTRO MR#: [id number] : 2000 Acct:[id number] Age/Sex: 24 / F ADM Date: 11/12/24 Loc: CARD Attending Dr: Luna Steen Ordering Physician: Luna Steen Date of Service: 11/12/24 Procedure(s): ECG 12 lead Accession Number(s): [id number] cc: [facility] Test Date: 2024-11-12 Pat Name: ALETA CASTRO Department: Room: - Gender: Female Mica Builder: : 2000 Requested By: LUNA STEEN Order Number: [id number] Reading : Lesa Singh Measurements Intervals [place] Rate: 79 P: 42 MI: 158 QRS: 81 QRSD: 90 T: 41 QT: 353 QTc: 405 Interpretive Statements SINUS RHYTHM Normal EKG No previous ECG available for comparison Electronically Signed On 11-13-2024 13:34:21 EDT by Lesa Singh Dictated By: Lesa iSngh M.D. Signed By: 11/13/24133311/13/24 133 DD/ 1206 TD/TT: Time Buyer: KYE Garay 12-LEADOrdered By: Radiologist Radiology on 70-27-3006YVYP [employer] Work Phone: ECG 12-LEADon 55-66-9205Ucspabliv Study observation (narrative)NOMS HealthcareALL CBC WITH AUTO DIFFon 83-42-1638VJVTMJAKC ABSOLUTE HSTY0LGUV HealthcareBasophils/100 WBC (Bld)0.2 %0.2 - 2.0 %[facility] Eosinophils/100 WBC (Bld)0.5 %Low0.9 - 7.0 %NOMS HealthcareErythrocyte distribution width (RBC) [Ratio]12.7 %11.0 - 15.0 %NOMS HealthcareHematocrit (Bld) [Volume fraction]31.2 %Low36.0 - 48.0 %NOM HealthcareHemoglobin (Bld) [Mass/Vol]10.8 g/dLLow12.0 - 16.0 g/dLNOTN HealthcareIMMATURE GRANULOCYTES ABS AUTO0.01NOMS HealthcareImmature granulocytes/100 WBC (Bld)0.2 %0.0 - 0.5 %NOM HealthcareInterpretation and review of laboratory resultsAbnormalNOTN Healthcare LYMPHOCYTES ABSOLUTE PNGF5SrvGOPS HealthcareLymphocytes/100 WBC (Bld)15 %Low20.5 - 60.0 %[facility] CenterMCH (RBC) [Entitic mass]32.3 pg26.7 - 34.0 pgNOPutnam County Memorial HospitalMCHC (RBC) [Mass/Vol]34.6 g/dL29.9 - 35.2 g/dLNOPutnam County Memorial HospitalMCV (RBC) [Entitic vol]93.4 fL81.0 - 99.0 fLNOTN HealthcareMONOCYTES ABSOLUTE AUTO0.5NOMS HealthcareMonocytes/100 WBC (Bld)7.7 %1.7 - 12.0 %NOMS HealthcareNEUTROPHILS ABSOLUTE FRUL6IQDJ HealthcareNeutrophils/100 WBC (Bld)76.4 %High43.0 - 75.0 % NOM HealthcarePlatelet mean volume (Bld) [Entitic vol]9.7 fL9.5 - 13.5 fLNOTN HealthcareTBH EO #0NOMS HealthcareTBH ODL238GICD HealthcareTB RBC3.34LowNOMS HealthcareTBH WBC6.6NOMS HealthcareCLINISYNCNOMS HealthcareIGP,APTIMA HPV,AGE GDLNon 23-19-5815VTS GDLN ACOG TESTINGNote.[facility] HealthcareComment on above:TESTS RESULT FLAG UNITS REF RANGE LAB Clinician Provided Cytology Information Source.............Endocervix No. of containers..01 ThinPrep Vial Age Ernieo CESAR Yaa... FLAG LEGEND: L-Low Normal,H-High Normal,LL-Alert Low,HH-Alert High <-Panic Low,>-Panic High,A-Abnormal,AA-Critical Abnormal Performed at: 01 =G [address] [address] Ludy Hector MD, IGP, RFX APTIMA HPV ASCUNote.[facility] HealthcareComment on above:TESTS RESULT FLAG UNITS REF RANGE LAB DIAGNOSIS: 02 NEGATIVE FOR INTRAEPITHELIAL LESION OR MALIGNANCY. THIS SPECIMEN WAS RESCREENED PART OF OUR COSTUME SHOP COORDINATOR PROGRAM. Specimen adequacy: 02 Satisfactory for evaluation. No endocervical component is identified. Performed by: 02 Brionna Mello Reliability Technicians ([facility]) QC reviewed by: 02 Polina Simons Reliability Technicians . 02 Note: Note 02 The Pap [...] <-Panic Low,>-Panic High,A-Abnormal,AA-Critical Abnormal Performed at: [address] [address] Ludy Hector MD, Performed at: = - [facility] [id number] Burial Vault Deliverer And Installer: Ludy Hector MD, Phone: [phone] Performed at: [facility] [address] [id number] Burial Vault Deliverer And Installer: Ludy Hector MD, Phone: [phone] BRUSH-SPATULA ENDOCERVIX CLINISYNCNOMS HealthcareRECURRENT VAGINITIS (HTRX)on 45-04-0400AYCOOQRUA VAGINAE 0NOMS HealthcareATOPOBIUM VAGINAENot detectedNOMS HealthcareBVAB 2,3 (BACTERIAL VAGINOSIS ASSOCIATED BACTERIA 2, 3); MOBILUNCUS ZMV7QOYA HealthcareBVAB 2,3 (BACTERIAL VAGINOSIS ASSOCIATED BACTERIA 2, 3); MOBILUNCUS SPPNot detectedNOMS HealthcareCANDIDA ALBICANS, PARAPSILOSIS, XAKBPZPJTF6PBFF HealthcareCANDIDA ALBICANS, PARAPSILOSIS, TROPICALISNot detectedNOMS HealthcareCANDIDA GLABRATA0 NOMS HealthcareCANDIDA GLABRATANot detectedNOMS HealthcareCANDIDA UWWYZD8FEAI HealthcareCANDIDA KRUSEINot detectedNOMS HealthcareCHLAMYDIA CODCVJQZFBZ2QUJH HealthcareCHLAMYDIA TRACHOMATISNot detectedNOMS HealthcareGARDNERELLA VAGINALIS0 NOMS HealthcareGARDNERELLA VAGINALISNot detectedNOMS HealthcareMEGASPHAERA (TYPES 1, 2)0NOMS HealthcareMEGASPHAERA (TYPES 1, 2)Not detectedNOMS Healthcare MYCOPLASMA DABZDSOFXY7RTJP HealthcareMYCOPLASMA GENITALIUMNot detectedNOMS HealthcareNEISSERIA MJTBRIDRJHH3ZIIK HealthcareNEISSERIA GONORRHOEAENot detected NOMS HealthcareTRICHOMONAS MLJUYVQNP7RZQV HealthcareTRICHOMONAS VAGINALISNot detectedNOMS HealthcareNOMS HealthcareUrinalysis macro (dipstick) panel (U)on 97-06-4706Wisadlwcp, UAPositiveNegative - 4(70) +++ mg/dLNOMS HealthcareBlood, UANegativeNegative [...] 12 mg/dLNOMS HealthcareNOMS HealthcareUS OB CERVICAL LENGTHon 18-54-1376F[address] [address] Ultrasound Report Signed Patient: ALETA CASTRO MR#: [id number] : 2000 Acct:[id number] Age/Sex: 24 / F ADM Date: 10/06/24 Loc: US Attending Dr: Doc Thomas D.O. Ordering Physician: Doc Thomas D.O. Date of Service: 10/06/24 Procedure(s): US OB cervical length Accession Number(s): [id number] cc: Doc Thomas D.O.; ROSALIE PAYNE [place] [address] Patient Name: ALETA CASTRO MRN: [facility]:[id number] date: 2000 Sex: F Assigned Patient Location: US Current Patient Location: US Accession/Order Number: [id number] Exam Date: 10/06/2024 14:25 Report Date: 10/06/2024 [...] Jr., D.O. 10/06/2024 2:26 PM Dictation Location: [place] [address] Electronically authenticated by: [id number] Y Date: 10/06/2024 14:26 Dictated By: Jermaine Nguyễn M.D. Signed By: 10/06/24 1428 DD/ 1426 TD/TT: Time Buyer:NINAHRadiology, Radiologist, MD - 10/06/2024 [place] [address] Ultrasound Report Signed Patient: ALETA CASTRO MR#: [id number] : 2000 Acct:[id number] Age/Sex: 24 / F ADM Date: 10/06/24 Loc: US Attending Dr: Doc Thomas D.O. Ordering Physician: Doc Thomas D.O. Date of Service: 10/06/24 Procedure(s): US OB cervical length Accession Number(s): [id number] cc: Doc Thomas D.O.; ROSALIE PAYNE [place] [id number] Patient Name: ALETA CASTRO MRN: TBH:[id number] date: 2000 Sex: F Assigned Patient Location: US Current Patient Location: US Accession/Order Number: [id number] Exam Date: 10/06/2024 14:25 Report Date: 10/06/2024 [...] Jr., D.O. 10/06/2024 2:26 PM Dictation Location: [place] [address] Electronically authenticated by: [id number] Y Date: 10/06/2024 14:26 Dictated By: Jermaine Nguyễn M.D. Signed By: 10/06/24 1428 DD/ 25 TD/TT: Time Buyer: KYE [facility] HospitalRadiology Study observation (narrative)[facility] OB CERVICAL LENGTHOrdered By: Radiologist Radiology on 59-33-7947WIUY [employer] Work Phone: US OB 14+ WEEKS ANATOMY SCANon 84-47-6002NT OB 14+ WEEKS ANATOMY SCANFINDINGS: A single, [...] Delivery: 02/20/25 Gestational Age as of 09/02/2024: 64f0iHuyspfiecp macro (dipstick) panel (U)on 48-61-6652Ghqltqrbr, UANegativeNegative - 4(70) +++ mg/dLNOMS HealthcareBlood, UANegativeNegative [...] mg/dLNOMS HealthcareNOMS Healthcare ALL THYROID STIM HORMONEon 89-40-1467AMG Qn0.836 m[IU]/LNOMS HealthcareCLINISYNC NOMS HealthcareUrinalysis macro (dipstick) panel (U)on 90-05-7968Axwzucgdv, UA NegativeNegative - 4(70) +++ mg/dLNOMS HealthcareBlood, [...] 12 mg/dLNOMS HealthcareNOMS HealthcareALL THYROID STIM HORMONEon 68-43-6987MXT Qn1.413 m[IU]/LNOMS HealthcareCLINISYNCNOMS HealthcareUrinalysis macro (dipstick) panel (U)on 55-23-2501Gfbesvtfg, UANegativeNegative - 4(70) +++ mg/dLNOMS HealthcareBlood, UANegativeNegative [...] UA1.00.2 - 12 mg/dLNOMS HealthcareNOMS HealthcareBOX TESTon 97-37-2597UWN TEST SENT OUTUNITY NOMS VguiylbrgrEZR0WGQNLYAFO XivhsfdzuiNSW80/3/25NOTN HealthcareUNPREMIER HEALTH [facility] CLINISYNCNOMS HealthcareTBH DRUG SCREEN RAPID (URINE)on 29-50-5051MPCKYYXUCID SCREEN URINENegativeNEGATIVENOMS HealthcareBARBITURATES SCREEN URINENegative NEGATIVENOMS HealthcareBENZODIAZEPINES [...] URINENegativeNEGATIVENOMS HealthcareCLINISYNCNOMS HealthcareHCG ( test) Ql (U)on 32-20-5268Bkqisdmcylpeej and review of laboratory resultsAbnormalNOMS HealthcarePreg Test, UrPositiveNegativeNOMS HealthcareNOMS HealthcareUS OB TRANSVAGINALon 87-75-2949DW OB TRANSVAGINALEXAM: US OB TRANSVAGINAL HISTORY: Dating. [...] II, MD, PHD at 19-Jul-2024 08:55:15 PM [facility] TeleradiologyNormalNot AvailableComment on above:Order Comment: US OB TRANSVAGINAL No LMP recorded.Urinalysis macro (dipstick) panel (U)on 47-82-9556Brirvypix, UA NegativeNegative - 4(70) +++ mg/dLNOMS HealthcareBlood, UANegativeNegative - 50 Randall/mcLNOMS HealthcareClarity, UAClearNOMS HealthcareColor, UAYellowNOMS HealthcareGlucose, UANegativeNegative - 2000(110) ++++ mg/dLNOMS Healthcare Interpretation and review of laboratory resultsNormalNOTN HealthcareKetones, UA NegativeNegative - 160(16) ++++ mg/dLNOMS HealthcareLeukocytes, UANegative Negative - 500+++ Rick/mcLNOMS HealthcareNitrite, UANegativeNegative - Positive NOMS HealthcarepH, UA6.55 - 9NOMS HealthcareProtein, UANegativeNegative - 2000(20) ++++ mg/dLNOMS HealthcareSpec Grav, UA1.021 - 1.03NOMS Healthcare Urobilinogen, UA1.00.2 - 12 mg/dLNOMS HealthcareNOMS HealthcareCBC W Auto Differential panel (Bld)on 97-61-0449Pami form neutrophils (Bld) [#/Vol]CANCELED NOMS HealthcareComment on above:Result canceled by the ancillary.Band form neutrophils/100 WBC (Bld)CANCELED%NOMS HealthcareComment on above:Result canceled by the ancillary.Basophils (Bld) [#/Vol]19 10*3/uLNOMS Healthcare Basophils/100 WBC (Bld)0.4 %NOM HealthcareBlasts (Bld) [#/Vol]CANCELED0 cells/uLNOMS HealthcareComment on above:Result canceled by the ancillary. Blasts/100 WBC (Bld)CANCELED%NOMS HealthcareComment on above:Result canceled by the ancillary.Eosinophils (Bld) [#/Vol]91 10*3/uLNOMS HealthcareEosinophils/100 WBC (Bld)1.9 %[facility] HealthcareErythrocyte distribution width (RBC) [Ratio]12.5 % 11.0 - 15.0 %NOM HealthcareHematocrit (Bld) [Volume fraction]38.9 %35.0 - 45.0 %[facility] HealthcareHemoglobin (Bld) [Mass/Vol]12.8 g/dL11.7 - 15.5 g/dLMetropolitan Saint Louis Psychiatric CenterLymphocytes (Bld) [#/Vol]1282 10*3/uLNOMS HealthcareLymphocytes/100 WBC (Bld)26.7 %[facility] HospitalH (RBC) [Entitic mass]30.6 pg27.0 - 33.0 pgRay County Memorial HospitalHC (RBC) [Mass/Vol]32.9 g/dL32.0 - 36.0 g/dLNOTN HealthcareComment on above:For adults, a slight decrease in the calculated MCHC value (in the range of 30 to 32 g/dL) is most likely not clinically significant; however, it should be interpreted with caution in correlation with other red cell parameters and the patient's clinical condition. MCV (RBC) [Entitic vol]93.1 fL80.0 - 100.0 fLINTERMOUNTAIN HEALTHCARE HealthcareMetamyelocytes (Bld) [#/Vol]CANCELED0 cells/uLNOMS HealthcareComment on above:Result [...] the ancillary.Nucleated RBC/100 WBC (Bld) [Ratio]CANCELED0 /100 WBCNOTN Healthcare Comment on above:Result canceled by the [...] NOMS HealthcareIron and Iron binding capacity panelon 02-90-8859Xlsx [Mass/Vol] 101 ug/dLNOTN HealthcareIron binding capacity [Mass/Vol]340NOMS HealthcareIron saturation [Mass fraction]30NOMS HealthcareLaboratory - Chemistry and Chemistry - challengeon 17-53-6176Qksslvc [Mass/Vol]4.8 g/dL3.6 - 5.1 g/dLNOTN Healthcare Albumin/Globulin [Mass ratio]1.8 {ratio}NOMS HealthcareALP [Catalytic [...] (S/P/Bld) [Vol rate/Area]122 mL/min/{1.73_m2}> OR = 60 mL/min/1.30q6WLOM HealthcareGlobulin (S) [Mass/Vol]2.6 g/dLNOMS HealthcareGlucose [Mass/Vol]95 mg/dL65 - 99 mg/dLNOTN HealthcareComment on above: Fasting reference interval Potassium [Moles/Vol]4.2 mmol/L3.5 - 5.3 mmol/LNOMS HealthcareProtein [Mass/Vol] 7.4 g/dL6.1 - 8.1 g/dLNOMS HealthcareSodium [Moles/Vol]139 mmol/L135 - 146 mmol/LNOMS HealthcareUrea nitrogen [Mass/Vol]16 mg/dL7 - 25 mg/dLNOMS Healthcare Urea nitrogen/Creatinine [Mass ratio]SEE NOTE:NOMS HealthcareComment on above: Not Reported: BUN and Creatinine are within reference range. Laboratory - Serology - non-microon 37-66-2766Hyhoacxjvmiaz Ab Qn153 [IU]/mLHigh < or = 1 IU/mLNOMS HealthcareTPO Ab Qn27 [IU]/mLHighNIIndian Path Medical Center Information 09-19-5983Weinsvzdokwdkw and review of laboratory resultsAbnormal [facility] Organization Information Site ID: QTW Name: [facility] Address: [address] [place] [id number] Director: Urvashi TaborAsc[facility] Organization Information Site ID: QPT Name: [facility] Address: [address] [facility], [address] [place] [address] Director: Yonis Beck MD[address] 71-02-1557Aocw T3 [Mass/Vol] 3.6 pg/mLNormal2.3-4.2Quest DiagnosticsComment on above:Performed By: #### 599, 62753, 866 #### [facility] [place] [address] [employer] Supervisor: Yonis Beck MDT, [facility] 26-26-1343Eyjy T4 [Mass/Vol]1.1 ng/dLNormal0.8-1.8Quest DiagnosticsComment on above:Order Comment: FASTING:NO FASTING: NOPerformed By: #### 729, 21145, 866 #### [facility] [place] [address] [employer] Supervisor: Yonis Mari 55-57-7446VMB Qn1.98 m[IU]/LNormalQuest DiagnosticsComment on above:Result Comment: Reference Range > or = 20 Years 0.40-4.50 Ranges First trimester 0.26-2.66 Second trimester 0.55-2.73 Third trimester 0.43-2.91Performed By: #### 389, 22652, 866 #### [facility] [place] [address] [employer] Supervisor: Yonis WOLF ( test) IA.rapid Ql (U)Ordered By: Marcelle Espinosa on 92-43-9464WUX ( test) Ql (U)NegativeUc West Chester HospitalHCG,Urineon 29-47-4497Cycn HCG ( test) Ql (U) NegativeNoCape Fear Valley Hoke Hospital Physician GroupComment on above:Result Comment: PERFORMED BY: [place] [address] PATHOLOGIST LEATHER WHITENER RAYMOND SUERO M.D.Performed By: #### [facility] #### [place] [address] USALon 91-82-8868DRdtsalwx: [id number] Received: 09/03/23 Status: FRANKLYN Gonzales Num: [id number] Spec Type: Surgical Subm Dr: Marcelle Espinosa [...] Location Account Attending Physician Aleta Castro / [id number] Marcelle Espinosa DO SPEC NUM: [id number] RECD: 09/03/23 STATUS: FRANKLYN GONZALES NUM: [id number] MIRIAM: 09/02/23- SUBM DR: Marcelle Espinosa DO ENTERED: 09/03/23 [facility] DR: SPEC TYPE: Surgical DEPT: S ORDERED: [...] mild squamous acanthosis and occasionally associated Specimen: [id number] Received: 09/03/23 Status: FRANKLYN Bradshawcharley Num: [id number] Spec Type: Surgical Subm Dr: Marcelle Espinosa, Tissues: A Small Intestine - Biopsy/Polyp (SMALL BOWEL BX) B GASTRIC FOR HP (GASTRIC HP) C Esophagus Biopsy (DISTAL ESOPHAGUS) D Esophagus Biopsy (PROXIMAL ESOPHAGUS) E Colon Biopsy (RANDOM RT COLON) F Colon Biopsy (RANDOM LT COLON) Procedures: HE/12, Gross/Micro L4/6, H PYLORI, IHC First AB Patient: Aleta Castro N [id number] (Continued) Specimen: [id number] Received: 09/03/23 (Continued) Pathological Diagnosis (Continued) Signed (signature on file) Heather Villegas MD 09/05/23 1417 Specimen: [id number] Received: 09/03/23 Status: FRANKLYN Gonzales Num: [id number] Spec Type: Surgical Subm Dr: Marcelle Espinosa DO Tissues: A Small Intestine - Biopsy/Polyp (SMALL BOWEL BX) B GASTRIC FOR HP (GASTRIC HP) C Esophagus Biopsy (DISTAL ESOPHAGUS) D Esophagus Biopsy (PROXIMAL ESOPHAGUS) E Colon Biopsy (RANDOM RT COLON) F Colon Biopsy (RANDOM LT COLON) Procedures: HE/12, Gross/Micro L4/6, H PYLORI, IHC First AB Patient: Aleta Castro N [id number] (Continued) Specimen: [id number] Received: 09/03/23 (Continued) Pathological Diagnosis (Continued) lymphocytic [...] 0.1 cm, entirely submitted (more content not included)...[facility] Physician GroupInsurance Correspondence Officeon 97-38-7569Hwrbodxpc Correspondence [id number]#1.00TIFFNoWooster Community HospitalIntraOperative Documentson 61-75-0763YiibfDzpyxaktc [id number]#1.00TIFVeterans Health AdministrationPostoperative Documentson 24-06-4921Spwlgrmxalcvc Documents [id number]#1.00TIFVeterans Health AdministrationMain OR Intraoperative Recordon 80-76-1895Ybsq OR Intraoperative Record IntraOp Document Type FT Summary Primary Physician: Myron Marroquin DO Finalized Date/Time: 04/25/23 09:04:33 Pt. Name: ALETA CASTRO/Sex: 2000 Female Med Rec #: [id number] Physician: Myron Marroquin DO Financial #: [id number] Pt. Type: A Room/Bed: [facility]/ [...] assist with the block. Patient's heartrate 89, wf00-875% on room air. patient tolerated block well. [...] Haas Role Performed Anesthesiologist Surgeon - Primary Log Roller - Primary Director Of Front Office Time In 04/23/23 08:50:00 04/23/23 09:15:00 04/23/23 08:50:00 Time Out 04/23/23 10:59:00 04/23/23 10:44:00 04/23/23 10:59:00 Procedure KNEE ARTHROSCOPY W/ ACL KNEE ARTHROSCOPY W/ ACL KNEE ARTHROSCOPY W/ ACL REPAIR(Left) REPAIR(Left) REPAIR(Left) Comments , anesthesia supervisor unloading Last Modified By: Souleymane RN, Lyle Comer RN, Lyle Comer RNLyle 04/23/23 10:59:32 04/23/23 10:59:32 04/23/23 10:59:32 Entry 4 Entry 5 Entry 6 Case Attendee Regulo Rodgers Laura C Wilhelm CST, Benjamin Role Performed Staff - Other Scrub - Primary 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/SA Time In 04/23/23 08:50:00 04/23/23 08:50:00 [...] FT Pre-Care Text: Implements (more content not included)...[facility] Consent for Anesthesiaon 40-90-8843Ctkdgge for Anesthesia [id number]#1.00TIFVeterans Health AdministrationDischarge Instructionson 06-66-8353Mzeqjrkwb Instructions [id number]#1.00[facility] CampusIntraOperative Documentson 64-53-2303BnartButmgaxwh Documents [id number]#1.00[facility] CampusOperative Reporton 56-14-5930Iajjhycws ReportSURGERY DATE: 04/23/2023 SALES INTERN: Garry Camacho CST PREOPERATIVE DIAGNOSIS: Left knee anterior cruciate ligament tear POSTOPERATIVE DIAGNOSIS: Left knee anterior cruciate ligament tear OPERATION: Left knee diagnostic operative arthroscopy with autograft pkcw-mmiydz-whry anterior cruciate ligament reconstruction with InternalBrace augmentation ANESTHESIA: General as well as regional block ANESTHESIOLOGIST: KARTHIKEYAN Peacock ESTIMATED BLOOD LOSS: 10 mL INTRAVENOUS FLUIDS: Please see the operative record SPECIMEN: None COMPLICATIONS: None IMPLANTS: Arthrex hplj-vhzvyh-iecj Tightrope system with the button for the [...] The anterior cruciate ligament was reconstructed using bmco-fjzuqd-febl from patellar tendon autograft with this InternalBrace [...] over reaming with a 10 mm barrel stave inspector. Excess bone debris is again removed. The [...] tensioned on the femo (more content not included)...[facility] [place] [facility] HospitalComment on above:Result Comment: Electronically Signed By: Myron Marroquin DO\.ammy\Date and Time Signed: 04/24/23 07:15 ESTPreoperative Documentson 82-42-1468Ptdmgtnixyrm Documents [id number]#1.00TIFFNormalDoctors HospitalConsent for Procedure/Surgeryon 67-61-2306Pnrijsa for Procedure/Surgery [id number]#1.00[facility] CampusConsent for Treatmenton 91-70-3974Ccopowv for Treatment [id number]#1.00[facility] CampusDischarge Instructionson 44-65-8466Zfiabcazx Instructions ALETA CASTRO :2000 Visit Date:04/23/2023 Inpatient [...] been scheduled. Call for any problems. Where: [address] [place] [address] [employer] (1) Medications What How Much When Instructions Next Dose New acetaminophen-oxycodone (Percocet 5 mg-325 mg oral tablet) 1 Tablets By Mouth As Directed 1-2 po Q4-6h prn pain Dx: S83.512D Duration: 7 days Pickup at [facility]/pharmacy #2345 New aspirin (Ecotrin 325 mg Tab-EC) 1 Tablets By Mouth Every day Pickup at [facility]/pharmacy #2345 Pharmacy Information [facility]/pharmacy #[id number]: [address], [place] [id number] [phone] Allergies Banana (Throat tightness, Hives, Vomiting) Latex (Hives, Swelling) azithromycin (Hives) midodrine (Numbness) Education Materials [place], [place] [facility] DISCHARGE INSTRUCTIONS: ANTERIOR CRUCIATE [...] any concerns. Myron Marroquin, DO [facility] [address] [place] [address] Reviewed: 06-23 Revised: 03/29 Common Emergency [...] please share your experie (more content not included)...[facility] For RehabilitationComment on above:Result Comment: Electronically Signed By: aMrcelo MCQUEEN, Shyla Acevedo\.br\Date and Time Signed: 04/23/23 10:58 ESTH&P Updateon 04-23-2023H&P [id number]#1.00TIFF [facility] [place] [facility] HospitalMain OR PACU I Recordon 05-28-1471Sgvf OR PACU I RecordPACU Phase I Document Type FT Summary Primary Physician: Myron Marroquin DO Finalized Date/Time: 04/23/23 12:22:33 Pt. Name: ALETA CASTRO/Sex: 2000 Female Med Rec #: [id number] Physician: Myron Marroquin DO Financial #: [id number] Pt. Type: A Room/Bed: [place] [address] Admit/Disch: 04/23/23 06:25:15 - Institution: Case Times [...] Signatures Signed By: Valencia Jimenez RN 04/23/23 12:22[facility] [place] [facility] HospitalMain [facility] Preoperative Recordon 16-58-9163Iuqv OR Preoperative RecordPreOp Document Type FT Summary Primary Physician: Myron aMrroquin DO Finalized Date/Time: 04/23/23 08:50:41 Pt. Name: ALETA CASTRO/Sex: 2000 Female Med Rec #: [id number] Physician: Myron Marroquin DO Financial #: [id number] Pt. Type: A Room/Bed: [facility]/ [...] Signatures Signed By: Lyle Comer RN 04/23/23 08:50NoBarney Children's Medical CenterMonitor Record on 82-69-7486Scpgxou [id number]#1.00TIFF [facility] [place] [facility] HospitalOperative Reporton 32-25-2579Avflrirdn Report Patient: ALETA CASTRO Age: 22 years [...] Using maximal sterile barrier technique per current [facility] guidelines including hand hygeine, Guidance (Ultrasound [...] The patient tolerated the procedure as expected.Normal Doctors HospitalComment on above:Result Comment: Electronically Signed By: [facility] (), Cyrus Zepeda.br\Date and Time Signed: 04/23/23 07:56 ESTPatient Education - Texton 05-29-1153Ozpzglb Education - Text [place], [place] [facility] DISCHARGE INSTRUCTIONS: ANTERIOR CRUCIATE [...] any concerns. Myron Marroquin DO [facility] [address] [place] [address] Reviewed: 06-23 Revised: 03/29[facility] [place] [facility] HospitalProparkland health center Note-Physicianon 21-04-6395Bscawzrr Note-PhysicianPatient: ALETA CASTRO Age: 22 years Sex: [...] Daily, # 21 tab(s), Refills(s) 0, Pharmacy: [facility]/pharmacy #2345, 165, cm, 04/04/23 6:11:00 EST, Height/Length Dosing, 78, kg, 04/04/23 6:11:00 EST, Weight Dosing Percocet 5 mg-325 mg oral tablet: 1 tab(s), Oral, As Directed, 40 tab(s), Refill(s) 0, 1-2 po Q4-6hprn pain Dx: S83.512D Duration: 7 days, [facility]/pharmacy #2345, 165, cm, 04/04/23 6:11:00 EST, Height/Length Dosing, 78, kg, 04/04/23 6:11:00 EST, Weight Dosing, Home Medications (2) Active Ecotrin 325 mg Tab-EC 325 mg = 1 tab(s), Oral, Daily Percocet 5 mg-325 mg oral tablet 1 tab(s), Oral, As Directed Problem list: All Problems H/O: hypothyroidism / SNOMED CT 364941314 / Confirmed POTS (postural orthostatic tachycardia syndrome) / SNOMED CT 6770524361 / Confirmed Physical Examination Vital Signs 04/23/2023 [...] Blood Pressure 1 (more content not included)... [facility] [place] [facility] HospitalComment on above:Result Comment: Electronically Signed By: [facility] Cyrus LEACH\.br\Date and Time Signed: 04/23/23 11:06 ESTProgress Note-PhysicianPatient: ALETA CASTRO Age: 22 years Sex: Female : 2000 Associated Diagnoses: None Author: Myron Marroquin DO Postoperative Information Procedure: L knee scope, ACL recon Preoperative Diagnosis: L ACL tear. Postoperative Diagnosis: same. Performed by: daniel. Director Of Front Office: Roby Camacho. Specimens Removed: none. Prosthesis: Arthrex. . Estimated Blood Loss: 10 ml. Complications: None. Anesthesia type: General, block.[facility] [place] [facility] HospitalComment on above:Result Comment: Electronically Signed By: [...] Daily, # 21 tab(s), Refills(s) 0, Pharmacy: [facility]/pharmacy #2345, 165, cm, 04/04/23 6:11:00 EST, Height/Length Dosing, 78, kg, 04/04/23 6:11:00 EST, Weight Dosing Percocet 5 mg-325 mg oral tablet: 1 tab(s), Oral, As Directed, 40 tab(s), Refill(s) 0, 1-2 po Q4-6hprn pain Dx: S83.512D Duration: 7 days, [facility]/pharmacy #2345, 165, cm, 04/04/23 6:11:00 [...] All Problems H/O: hypothyroidism / SNOMED CT 719912821 / Confirmed POTS (postural orthostatic tachycardia syndrome) / SNOMED CT 3336670341 / Confirmed, Active Problems (2) H/O: hypothyroidism POTS (postural orthostatic tachycardia syndrome) Histories Past Medical History: No active or resolved past medical history items have been selected or recorded. Family History: No family history items have been selected or recorded. Procedure history: Laparoscopic left ovarian R/o (5622005198). Ovarian cyst removal (384048154). Social History Social & Psychosocial Habits Alcohol [...] U beta hCG Ql Negative . Plan [place] Society [employer] Anesthesiologists (ASA) physical status classification: Class II. Anesthetic Preoperative Plan: Anesthesia General. Regional Adductor Canal Block Left.[facility] [place] [facility] HospitalComment on above:Result Comment: Electronically Signed By: Urbano MENDEZ)Cyrus\.br\Date and Time Signed: 04/23/23 07:41 ESTU BetaHcg Qualon 41-96-9547LSB.beta subunit (U) [Moles/Vol]NegativeNoBarney Children's Medical CenterComment on above:Performed By: #### [id number] ####[facility] [address] [place], [place] [address]Yyfxeid for Procedure/Surgery on 66-60-5567Hdiiirm for Procedure/Surgery [id number]#1.00TIFFProMedica Toledo Hospital w/ Auto Diffon 41-65-1588Qrwojwsi Absolute0.0 E9/LNormal0.0-0.2FMercy Health Perrysburg HospitalComment on above:Performed By: #### [id number] ####[facility] [address] [place], [place] [address]Fyfcdwxgw/100 WBC (Bld)0.4 %Normal0.0-2.0Doctors HospitalComment on above:Performed By: #### [id number] ####[facility] [address] [place], [place] [address]Yal Absolute0.1 E9/LNormal0.0-0.5FMercy Health Perrysburg HospitalComment on above:Performed By: #### [id number] ####[facility] [address] [address]Gfevfdvjdzc/100 WBC (Bld)1.0 %Normal0.0-8.0Doctors HospitalComment on above:Performed By: #### [id number] ####[facility] [address] [address]Bkqmraamrkm distribution width (RBC) [Ratio]12.6 %Mnstem49.9-14.2FMercy Health Perrysburg Hospital Comment on above:Performed By: #### [id number] ####[address] [address]Rrtzdnsdcs (Bld) [Volume fraction] 39.0 %Umsmov35.0-46.0Doctors HospitalComment on above:Performed By: #### [id number] ####[address] [address]Tdrcxpresa (Bld) [Mass/Vol]13.1 g/iDYxlmab24.0-16.0Doctors HospitalComment on above:Performed By: #### [id number] ####[address] [address]Prcgp Absolute1.4 E9/LNormal 1.0-4.0Doctors HospitalComment on above:Performed By: #### [id number] ####[address] [address] Lymphocytes/100 WBC (Bld)22.2 %Snvmwy64.0-50.0Doctors HospitalComment on above:Performed By: #### [id number] ####[place] [address] [address]AUB (RBC) [Entitic mass]30.6 pgNormal 27.0-34.0Doctors HospitalComment on above:Performed By: #### [id number] ####[facility] [address] [address]SVXU (RBC) [Mass/Vol]33.7 g/aQQmtcoj95.4-36.0Doctors HospitalComment on above:Performed By: #### 5240911 ####[place] [address] [address]GFV (RBC) [Entitic vol]91.0 uZWmeduf15.0-100.0 Doctors HospitalComment on above:Performed By: #### [id number] ####[place] [address] [address]Chfn Absolute0.4 E9/LNormal0.2-1.0Doctors HospitalComment on above: Performed By: #### [id number] ####[address] [address]Nlliymfoz/100 WBC (Bld)5.6 %Normal4.0-14.0Doctors HospitalComment on above:Performed By: #### [id number] ####[address] [address]Ceeaqi Absolute4.6 E9/LNormal2.0-7.5FMercy Health Perrysburg HospitalComment on above:Performed By: #### 3343461 ####[address] [address]Shhdjn Auto70.8 %Inddyq90.0-75.0Doctors HospitalComment on above:Performed By: #### [id number] ####[address] [address]Cduyjndg983.0 E9/MEythpl773.0-500.0Doctors HospitalComment on above:Performed By: #### [id number] ####[address] [address]Gqtokwdb mean volume (Bld) [Entitic vol]7.7 fLNormal6.4-10.8Doctors HospitalComment on above:Performed By: #### [id number] ####[facility] [address], [place] [address]PDI5.3 E12/LNormal4.3-5.9Doctors HospitalComment on above:Performed By: #### [id number] ####[facility] [address] [place], [place] [address]HWM7.5 E9/LNormal4.0-11.0 Doctors HospitalComment on above:Performed By: #### [id number] ####[facility] [address] [place] [address] Consent for Treatmenton 47-40-3213Kiffxus for Treatment [id number]#1.00TIFFNormalDoctors HospitalHEMATOLOGYOrdered By: SYSTEM SYSTEM on 72-86-9397Dlrubghg Absolute0.0 E9/L Normal0.0 - 0.2 E9/LRemisol HemeBasophils/100 WBC (Bld)0.4 %Normal0.0 - 2.0 % Remisol HemeEos Absolute0.1 E9/LNormal0.0 - 0.5 E9/LRemisol HemeEosinophils/100 WBC (Bld)1.0 %Normal0.0 - 8.0 %Remisol HemeErythrocyte distribution width (RBC) [Ratio]12.6 %Dsavaj46.9 - 14.2 %Remisol HemeHematocrit (Bld) [Volume fraction] 39.0 %Smzxom23.0 - 46.0 %Remisol HemeHemoglobin (Bld) [Mass/Vol]13.1 g/dLNormal 12.0 - 16.0 gm/dLRemisol HemeLymph Absolute1.4 E9/LNormal1.0 - 4.0 E9/LRemisol HemeLymphocytes/100 WBC (Bld)22.2 %Meocct79.0 - 50.0 %Remisol HemeMCH (RBC) [Entitic mass]30.6 hbRugtku63.0 - 34.0 pgRemisol HemeMCHC (RBC) [Mass/Vol]33.7 g/oKXdhtvu96.4 - 36.0 gm/dLRemisol HemeMCV (RBC) [Entitic vol]91.0 cPEephes27.0 - 100.0 fLRemisol HemeMono Absolute0.4 E9/LNormal0.2 - 1.0 E9/LRemisol Heme Monocytes/100 WBC (Bld)5.6 %Normal4.0 - 14.0 %Remisol HemeNeutro Absolute4.6 E9/LNormal2.0 - 7.5 E9/LRemisol HemeNeutro Auto70.8 %Mwrrzq40.0 - 75.0 %Remisol WdukOgfcaclg884.0 E9/AHvjlpc399.0 - 500.0 E9/LRemisol HemePlatelet mean volume (Bld) [Entitic vol]7.7 fLNormal6.4 - 10.8 fLRemisol HemeRBC4.3 E12/LNormal4.3 - 5.9 E12/LRemisol HemeWBC6.5 E9/LNormal4.0 - 11.0 E9/LRemisol HemeCOVID/FLU/RSV RT-PCRon 10-11-6275MHYF-CoV-2 (COVID-19) RNA QUEENIE+probe Ql (Unsp spec)Negative [facility] Other COVID/FLU/RSV RT-PCRNegativeMount Airy [employer] Other quick Strepon 04-01-2023S. pyogenes Org specific cx Ql (Throat)NegativeMount Airy [employer] Other quick [employer] LogicCam[employer] Real [employer] Other US Gallbladderon 95-73-3160FS GallbladderClinical History: Right upper quadrant pain. Diarrhea. [...] and signed by Cornelius Hernandez on 07/23/2022 1043NormalNorthonorhealth scottsdale shea medical centern Georgetown Behavioral HospitalOG PANEL 2: to 29on 05-09-2022..NormalThe [facility] on above:Performed By: #### [id number] #### [facility] [address] [place] [address] Dr. Yovanny Kelly Gdln ACOG Mteesla44-23BnffliZnwSelect Medical Specialty Hospital - [facility] on above:Performed By: #### [id number] #### [facility] [address] [address] [address] Yovanny VillegasDIAGNOSIS:CommentNorwalk Memorial Hospital on above: Result Comment: NEGATIVE FOR INTRAEPITHELIAL LESION OR MALIGNANCY.Performed By: #### [id number] #### [facility] [address] [place] [address] Dr. Yovanny VillegasMethodology:CommentNorwalk Memorial Hospital on above: Result Comment: This liquid based ThinPrep(R) pap test was screened with the use of an image guided system.Performed By: #### [id number] #### [facility] [address] [place] [address] Dr. Yovanny VillegasNote:CommentNorwalk Memorial Hospital on above:Result Comment: The Pap smear is a screening test designed to aid in the detection of premalignant and malignant conditions of the uterine cervix. It is not a diagnostic procedure and should not be used as the sole means of detecting cervical cancer. Both false-positive and false-negative reports do occur. .Performed By: #### [id number] #### [facility] [address] [address] [address] Yovanny VillegasPerformed by:CommentNorwalk Memorial Hospital on above: Result Comment: Deedee Navarrete, Motorboat Mechanic (ASCP)Performed By: #### [id number] #### [facility] [address] [place] [address] Dr. Yovanny VillegasReflex Criteria:CommentNormalThe Alba HospitalComment on above:Result Comment: The HPV DNA reflex criteria were not met with this specimen result therefore, no HPV testing was performed. .Performed By: #### [id number] #### [facility] [address] [place] [address] Dr. Yovanny Anthony adequacy:CommentNoMorrow County HospitalComment on above:Result Comment: Satisfactory for evaluation. Endocervical and/or squamous metaplastic cells (endocervical component) are present.Performed By: #### [id number] #### [facility] [address] [place] [address] Dr. Yovanny VillegasCHLAMYDIA/GONOCOCCUS QUEENIE (SWAB/URINE/PAPon 12-26-0460Votpjnpju trachomatis, NAANegativeNormalNegativeSelect Medical Specialty Hospital - YoungstownComment on above: Performed By: #### CT/NGNA #### [facility] [address] [place] [address] Dr. Yovanny VillegasNeisseria gonorrhoeae, NAANegativeNormalNegativeSelect Medical Specialty Hospital - YoungstownComment on above:Performed By: #### CT/NGNA #### [facility] [address] [place] [address] Dr. Yovanny VillegasVAGINITIS/VAGINOSIS DNA PROBEon 89-20-4625Vtybeoo speciesNegative NormalNegativeSelect Medical Specialty Hospital - YoungstownComment on above:Performed By: #### VAGINT #### [facility] [address] [place] [address] Dr. Yovanny VillegasGardnerella vaginalisNegativeNormalNegativeSelect Medical Specialty Hospital - [place] Comment on above:Performed By: #### VAGINT #### [facility] [address] [place] [address] Dr. Yovanny VillegasTrichomonas vaginalisNegativermalNegativeSelect Medical Specialty Hospital - [place] Comment on above:Performed By: #### VAGINT #### [facility] [address] [place] [address] Dr. Yovanny VillegasXR KNEE LEFT (3 VIEWS)on 43-28-5313RQ KNEE LEFT (3 VIEWS) EXAMINATION: THREE XRAY [...] Signed by: Deshaun Aguilar MD 05/24/21 Final resultNormalShelby Memorial HospitalNo fracture or dislocation. [facility] CONSOLIDATEDEXAMINATION: THREE XRAY VIEWS OF THE LEFT KNEE 05/24/2021 8:48 pm COMPARISON: None. HISTORY: ORDERING SYSTEM PROVIDED HISTORY: pain eval occult bony injury TECHNOLOGIST PROVIDED HISTORY: pain eval occult bony injury FINDINGS: No fracture, dislocation, or focal osseous lesion is noted. No significant soft tissue abnormality seen. [facility] Deshaun Bejarano MD - 05/24/2021 EXAMINATION: THREE XRAY VIEWS OF THE LEFT KNEE 05/24/2021 8:48 pm COMPARISON: None. HISTORY: ORDERING SYSTEM PROVIDED HISTORY: pain eval occult bony injury TECHNOLOGIST PROVIDED HISTORY: pain eval occult bony injury FINDINGS: No fracture, dislocation, or focal osseous lesion is noted. No significant soft tissue abnormality seen. IMPRESSION: No fracture or dislocation. [employer] Phone: radiology Study observation (narrative)[employer] Phone: XR KNEE LEFT (3 VIEWS)Ordered By: Deshaun Aguilar on 01-39-2452[facility] Work Phone: COVID Quick Testingon 86-71-1599YlyknyNhqgzkkpOkswt [employer] Other Quick Strepon 05-01-2021. pyogenes Org specific cx Ql (Throat)PositiveMount Airy [facility] Other Quick StrepNothree rivers healthcare [facility] Other COVID Quick Testingon 11-65-5932GcugiuBlhtwgfpDljmo [employer] Other Quzip Fluon 79-98-2829CRNHM Ab CF (S) [Titer]Negative North [facility] Other FLUBV Ab CF (S) [Titer]NegativeNoSouthwood Psychiatric Hospital [facility] Other XR SACRUM COCCYX (MIN 2 VIEWS)on 38-28-3451CF SACRUM COCCYX (MIN 2 VIEWS)EXAMINATION: THREE XRAY VIEWS OF THE SACRUM/COCCYX 12/14/2020 3:10 am COMPARISON: None. HISTORY: ORDERING SYSTEM PROVIDED HISTORY: fall at work - hit kpqlt6tx TECHNOLOGIST PROVIDED HISTORY: fall at work - hit bunnq8wl FINDINGS: The sacroiliac joints are normally aligned. The visualized portions the pelvis are. There is no fracture of the sacrum or coccyx evident. IMPRESSION: No acute osseous abnormality of the sacrum or coccyx evident. Interpreted by: Loc Oswald MD Signed by: Loc Oswald MD 12/14/20 Final resultNormalMerMt. Sinai HospitalXR SACRUM COCCYX (MIN 2 VIEWS)Ordered By: David Dominguez on 78-03-1002Hj acute osseous abnormality of the sacrum or coccyx evident.[employer] Work Phone: eXAMINATION: THREE XRAY VIEWS OF THE SACRUM/COCCYX 12/14/2020 3:10 am COMPARISON: None. HISTORY: ORDERING SYSTEM PROVIDED HISTORY: fall at work - hit prgcu2dt TECHNOLOGIST PROVIDED HISTORY: fall at work - hit fwefg4yc FINDINGS: The sacroiliac joints are normally aligned. The visualized portions the pelvis are. There is no fracture of the sacrum or coccyx evident. [employer] Work Phone: e, [facility] Incoming Radiant Results From [employer] - 12/14/2020 3:24 AM EDT EXAMINATION: THREE XRAY VIEWS OF THE SACRUM/COCCYX 12/14/2020 3:10 am COMPARISON: None. HISTORY: ORDERING SYSTEM PROVIDED HISTORY: fall at work - hit kuovs1ek TECHNOLOGIST PROVIDED HISTORY: fall at work - hit fqrhn5kp FINDINGS: The sacroiliac joints are normally aligned. The visualized portions the pelvis are. There is no fracture of the sacrum or coccyx evident. IMPRESSION: No acute osseous abnormality of the sacrum or coccyx evident. [employer] Work Phone: [facility] CenterI-frontdesk Work Phone: ct HEAD WO CONTRASTon 92-12-7644KG HEAD WO CONTRAST EXAMINATION: CT OF THE [...] Signed by: Maira Cruz MD 09/19/20 Final resultNormalRegency Hospital Cleveland East Head WO ContrastOrdered By: Luis Carlos Fragoso on 42-52-5492Zqghgawgukbw noncontrast CT examination of the brain.[employer] Phone: eXAMINATION: CT OF THE HEAD WITHOUT [...] abnormality of the visualized skull or soft tissues.[employer] Phone: edi, [facility] Incoming Radiant Results From [employer] - 09/19/2020 4:42 PM EDT EXAMINATION: CT [...] Unremarkable noncontrast CT examination of the brain. [employer] Phone: [facility] Medical CenterRent Jungle Phone: coding Summaryon 49-15-3122Nmsjkc SummaryCODING DATE: 10/27/2019 [facility] STATUS: Home PAYOR: [facility] ADMIT DX: REASON FOR VISIT DX: [...] By: Ashley Pablo Date Saved: 10/27/2019 03:10 [facility]2019 Novel Coronavirus (CoVID-19), QUEENIE LCon 04-99-5115WNNH-CoV-2, QUEENIE (COVID-19) LCNot DetectedNot Delaware County HospitalComment on above:Order Comment: [id number] Comment: This test was developed and its performance characteristics determined by [employer]. This test has not been FDA cleared [...] detected) result in this assay. Performed At: [facility] [address] [facility], [place] [id number] Ruba Washburn MD Ph:[phone] By: #### [id number] #### [facility] (DEFAULT) [address] [place] [address]Wfkoanr Formson 65-12-0797Wwrafjx Forms [id number]#1.00OTGTWexner Medical Center on 96-66-3420WXGLTctsuf TextToll Free: [phone] [facility] - Iekahzvm[address] [place] [address]Jndiy: [phone]: [facility] Jalzs[address] [place], [place] [address]Zoywi: [phone]: [facility] Hospitalk[address] [place], [place] [address]Higjb: [phone]: Steve Pablo M.D., Ronaldo Marquez M.D.David Becerril M.D.Papito Sood D.O..Myriam Chaudhari M.D.Deandre Montoya M.D. Matthew Huff M.D.Date: July 15, 2017Re: Aleta Elliott WHOM IT MAY CONCERN:She was seen in our office today.Sincerely,Katelin Cardona PSR(signed electronically to expedite mailing)[facility]itt[facility] Medical CenterCNOVSPon [id number] (SP) Office (HEMACL) --------ALETA GARAY ([id number]) 89 FDate Time Provider Department07/15/17 3:15 PM [...] list. no changes .Referring Provider: DAVID BECERRIL [[id number]]Allergies As of Date: 07/15/2017(No Known Allergies)Date Reviewed: [...] .Encounter Status:Closed by DAVID BECERRIL MD on 07/17/17[facility] 20-99-7713ZQGKNKMUXOY ID: [id number]: David Escaleraervice: (none)Author Type: PhysicianType: Progress NotesFiled: [...] issues certainly could consider further testingAlfred Kavon BaroneTriHealth Bethesda Butler HospitalPlatelet Func Scrnon 35-34-1692ZCX/ADP Liqzwqszk73 CT (sec) Normal<118[facility] on above:Result Comment: Results are reported as Closure Time (CT) in seconds.Performed By: #### PLTSCP ####[place] [address] AvAr[place], [place] [phone]/EPI Cjfgabure955 CT (sec)Normal<199CleKindred [facility] on above:Result Comment: Results are reported as Closure Time (CT) in seconds. Performed By: #### PLTSCP ####[facility] Liojfzedshfm44[address] Max AveCCornwall Bridge, [place] [phone] Func Scr Interp(NOTE)NormalCleveland Clinic Foundation on above:Result Comment: Performing Pathologist: Jo-Ann Sesay [...] a bleeding disorder. Performed By: #### PLTSCP ####[address] HandMinderArlington Heights, [place] [phone] CBCDIF (for [facility] use only)on 10-84-2954Wit Baso<0.03Normal<0.11CUniversity [facility]als [facility] on above: Performed By: #### EVANDF ####[place] [address] AveCCornwall [address], [place] [phone] Mono0.53 k/uLNormal<0.87[facility] on above:Performed By: #### EVANDF ####[place] [address] [address]CCorn[address], [place] [phone] Neut2.59 k/uL Normal1.45-7.50[facility] on above:Performed By: #### EVANDF ####[address] Av[address] [place], [place] [phone]/100 WBC Auto (Bld)0.4 %NormalCleveland Clinic Foundation on above:Performed By: #### EVANDF ####[address] AvArlington [place], [place] [phone] DiffNormal [facility] on above:Performed By: #### EVANDF ####[address] [phone] 10*3/uLNormal<0.46[facility] on above:Performed By: #### EVANDF ####[place] [address] [address] AvAr[place], [place] [phone]/100 leukocytes1.5 %Normal [facility] on above:Performed By: #### EVANDF ####[address] Av[address], [place] [phone] distribution width Auto Ratio (RBC)12.2 %Nwoklp32.5-15.0 [facility] on above:Performed By: #### RACHEL ####[address] Av[address] [place], [place] [phone] (RBC)4.15 10*6/uLNormal3.90-5.20[facility] Comment on above:Performed By: #### RCBCDF ####[address] Av[address], [place] [phone] (RBC)0.0 /100 WBCNormal 0[facility] Centerment on above:Performed By: #### RCBCDF ####[address] Av[address], [place] [phone] (RBC)10*6/uLNormal<0.01[facility] on above:Performed By: #### RCBCDF ####[address] [phone] (HCT)39.4 %Eitnwi49.0-46.0 [facility] CampusComment on above:Performed By: #### RCBCDF ####[address] [phone] mass conc (Bld)12.8 g/pPMqbagu46.5-15.5CUniversity Hospitals St. [facility] on above:Performed By: #### RCBCDF ####[address] [phone] 10*3/uLNormal1.00-4.00[facility] on above:Performed By: #### RCBCDF ####[address] [phone]/100 xtmmdkuddh29.9 %NormalC[facility] Clinic [facility] on above:Performed By: #### RCBCDF ####[address] [phone] pGNormal 26.0-34.0[facility] on above:Performed By: #### CHONBCDF ####[place] [phone] mass conc (RBC)32.5 g/cFDntkbn90.5-36.0[facility] Comment on above:Performed By: #### EVANDF ####[place] [phone] oDCunity84.0-100.0[facility] on above:Performed By: #### EVANDF ####[place] [phone]/100 nkhjvuhrrm17.6 %NormalC[facility] Clinic [facility] on above:Performed By: #### EVANDF ####[place] [phone]/100 WBC Auto (Bld)56.6 %NormalC[facility] Clinic Foundation on above:Performed By: #### CHONBCDF ####[place] [phone] mean volume (PMV)10.2 fLNormal9.0-12.7CUniversity Hospitals St. [facility] on above:Performed By: #### CHONBCDF ####[place] [phone] 10*3/eMKgtdfq831-205RcmmyijuiSt. [facility] Comment on above:Performed By: #### EVANDF ####[place] [phone] (Leukocytes)4.58 10*3/uLNormal 3.70-11.00[facility] on above:Performed By: #### EVANDF ####[address]lid [place], [place] [phone] 35-85-3425RIJOGvbpll TextToll Free: [phone]/cancer [facility] - Qtkwxfqw[address] HungClim[place], [place] [address]Tsomx: [phone]: [facility] [address] [place], [place] [address]Uihqn: [phone]: [facility] Iyyvzod[address] [place], [place] [address]Waueq: [phone]: Steve Pablo M.D., Jonna Castro M.D.Papito Sood D.O..Carin Hoover M.D. FACROSaju A. Rajan, M.D.Date: April 29, 2017Re: Aleta RuizvipulSKYLER WHOM IT MAY CONCERN:She was seen in our office today.Sincerely,Karly Pizarro Psr(signed electronically to expedite mailing)[facility] Medical CenterCNOVSPon [id number] (SP) Office (HEMACL) --------BEVVIPULSUMMER ([id number]) 99 FDate Time Provider Department04/29/17 2:30 PM [...] patientand her mother at length. Would check [id number] at this time, further testingbased on results.1. [...] (HCC) [D69.1]Order(s):PLATELET FUNCTION SCREEN [SQPLTSCP] Order #: [id number] FUTURE CBC + DIFF (FOR REMOTE [facility] USE) [SQRCBCDF] Order #: [id number] FUTUREDisposition: Return in about 6 weeks (around [...] Status:Closed by DAVID BECERRIL MD on 04/29/17Normal [facility] CampusPROGRESSon [id number] ID: [id number]: David Escaleraervice: (none)Author Type: PhysicianType: Progress NotesFiled: [...] and her mother at length. Would check QAS726 at this time, furthertesting based on results.1. 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 Vital Signs Date TimeVital SignValuePerforming HalokcznrShcqigxm29-61-5762 14:02-0500Body mass index (BMI) [Ratio]30 kg/m2Pretty ARELLANO Work Phone: [facility] CenterPwoiabjucc27-42-5111 14:02-0500Body .29 kgPretty ARELLANO Work Phone: [facility] CenterMdbhvhaorf73-66-3842 14:02-0500Diastolic blood uvrcptfy40 mm[Hg]Pretty ARELLANO Work Phone: [facility] CenterUotywzztxb88-11-9613 14:02-0500Systolic blood mm[Hg]Pretty ARELLANO Work Phone: [phone] [place], [place] [address]Uqwpuvlojb83-61-6827 13:04-0400Body mass index (BMI) [Ratio]29.59 kg/i4Fcukm William DO Work Phone: 1(878)783-[address] [place], [place] [address]Xmhifmworw98-07-8499 13:04-0400Body esqhih78.2 kg Doc William DO Work Phone: 1(990)[facility] [place], [place] [address]Ohxutxmjgz55-91-9568 13:04-0400Diastolic blood nvsodcve17 mm[Hg]Doc William DO Work Phone: 1(771)[facility] [place], [place] [address]Vnqyoiojur34-16-0265 13:04-0400Systolic blood qnmqgylb782 mm[Hg]Doc William DO Work Phone: 1(056)[facility] [place], [place] [address]Itldpqgebd59-48-2117 13:57-0400Body mass index (BMI) [Ratio]29.42 kg/x5EzrkejwiLuna Steen PRENATAL GENETIC COUNSELOR Work Phone: 1(265)[address] [place], [place] 9672810-08-2025 13:57-0400Body hnvnof91.75 kgLuna Steen PRENATAL GENETIC COUNSELOR Work Phone: 1(556)[facility] [place], [place] [address]Nobtwuuuzt46-71-5316 13:57-0400Diastolic blood krrrgrue70 mm[Hg]Luna Steen PRENATAL GENETIC COUNSELOR Work Phone: 1(030)[facility] [place], [place] [address]Rdatxbwxwb42-92-4122 13:57-0400Systolic blood mm[Hg]Luna Steen PRENATAL GENETIC COUNSELOR Work Phone: 1(789)[address] [place], [place] 9672809-24-2025 14:07-0400Body mass index (BMI) [Ratio]28.84 kg/s1Ixmxv William DO Work Phone: 1(604)[facility] [place], [place] [address]Vtksrxtlwi09-73-3872 14:07-0400Body oktwci46.2 kg Doc William DO Work Phone: 1(561)[facility] [place], [place] [address]Spzosrizwb40-97-1163 14:07-0400Diastolic blood oydmscjp88 mm[Hg]Doc William DO Work Phone: 1(019)[facility] [place], [place] [address]Zhfmfrwgdp85-55-7004 14:07-0400Systolic blood vkxlpylw617 mm[Hg]Doc William DO Work Phone: 1(828)316-[address] [place], [place] [address]Yftjtzfhqh64-51-0293 14:04-0400Body mass index (BMI) [Ratio]29.95 kg/u0Nbgpzyof Enio PRENATAL GENETIC COUNSELOR Work Phone: [phone])694-[facility] CenterLudyzzqudl11-04-7586 14:04-0400Body cextcw21.15 kgLuna Enio PRENATAL GENETIC COUNSELOR Work Phone: [phone])963-[address] [place], [place] [address]Xygyhyomag13-03-5989 14:04-0400Diastolic blood fbackizu68 mm[Hg]Luna Enio PRENATAL GENETIC COUNSELOR Work Phone: 1(510)255-[address] [place], [place] [address]Skvkozgffx54-67-5465 14:04-0400Systolic blood ijoxdpay152 mm[Hg]Luna Enio PRENATAL GENETIC COUNSELOR Work Phone: 1(571)994-[address] [place], [place] [address]Ijgirbgsce08-14-2326 14:39-0400Body mass index (BMI) [Ratio]28.49 kg/m2Pretty Chaidez PA Work Phone: 1(863)983-[address] [place], [place] [address]Pbapbufact90-45-8375 14:39-0400Body .3 kg Pretty Chaidez PA Work Phone: 1(144)341-[address] [place], [place] [address]Gzoqyijhxu85-14-9360 14:39-0400Diastolic blood fsxukkmh68 mm[Hg]Pretty Chaidez PA Work Phone: 1(993)144-[address] [place], [place] [address]Dhvrsnfyag61-04-5809 14:39-0400Systolic blood izssuorz778 mm[Hg]Pretty Chaidez PA Work Phone: 1(871)633-[address] [place], [place] [address]Vkrmfzopvx46-31-1867 15:34-0400Body mass index (BMI) [Ratio]28.29 kg/g6Wluyp William DO Work Phone: 1(487)783-[address] [place], [place] [address]Hthaqogmcp85-80-2832 15:34-0400Body zvcmyu72.75 kgCorey William DO Work Phone: [phone]-[facility] CenterAobsavzvro93-87-1004 15:34-0400Diastolic blood mm[Hg]Doc William DO Work Phone: 1(261)483-[address] [place] [address]-16-2025 15:34-0400Systolic blood cucuewlr527 mm[Hg]Doc William DO Work Phone: [facility] CenterTydivmfpnj19-24-2194 14:27-0400Body mass index (BMI) [Ratio]30.21 kg/s9Tabyw William DO Work Phone: [facility] CenterRisnorfwnc73-96-6615 14:27-0400Body .83 kgCorey William DO Work Phone: 1(615)620-[address] [place], [place] [address]Pllstccryy92-16-5841 14:27-0400Diastolic blood xifhhfld91 mm[Hg]Doc William DO Work Phone: [facility] CenterDcflsybayx07-63-7019 14:27-0400Systolic blood syqncuaw181 mm[Hg]Doc William DO Work Phone: [facility] CenterBwmnupbdhn19-21-5966 15:41-0500Body cirywk788.6 cmDavid Pocos DO Work Phone: [facility] CenterYjxbrbuzze98-75-9885 15:41-0500Body mass index (BMI) [Ratio]30.21 kg/m1Cnhcc Pocos DO Work Phone: [facility] CenterXlovqcqitw46-66-8737 15:41-0500Body .83 kgDavid Pocos DO Work Phone: [facility] CenterYgbdbigepn43-36-9409 15:26-0500Body qofhis849.6 cmEtyshawn Payne MD Work Phone: [facility] CenterKoutcvfzpz38-13-8198 15:26-0500Body mass index (BMI) [Ratio]30.21 kg/p5VcumprRosalie Payne MD Work Phone: [facility] CenterZfvrmrifgv79-94-9813 15:26-0500Body qikzbx09.83 kgRosalie Payne MD Work Phone: [facility] CenterIkskzinymt73-27-1615 15:26-0500Heart rate88 /min Rosalie Payne MD Work Phone: [facility] CenterUjeodunmbi91-26-5368 15:26-8623DrG2% (BldA) [Mass fraction]98 %Rosalie Payne MD Work Phone: [facility] CenterLasddmmwkg81-79-6607 08:00-0400Body .6 cmKelvin Schwartz DO Work Phone: [facility] CenterMzqivngqdg99-19-2832 08:00-0400Body mass index (BMI) [Ratio]30.9 kg/k4HzastKelvin Schwartz DO Work Phone: [facility] CenterWpoqcqnenc51-86-0075 08:00-0400Body iyqxxz80.65 kgKelvin Schwartz DO Work Phone: [facility] CenterAevnmrnppx74-54-0251 14:25-0400Diastolic blood tursnohx03 mm[Hg]MD Rosalie Payne Work Phone: [phone])[address]06-17-2024 14:25-0400 Heart rate80 /minMD Rosalie Payne Work Phone: 1(858)[address] [place], [place] 5732406-17-2024 14:25-0400 Respiratory rate18 /minMD Rosalie Payne Work Phone: 1(698)[address] [place], [place] 5732406-17-2024 14:25-0400 SaO2% (BldA) [Mass fraction]100 %MD Rosalie Payne Work Phone: 1(267)[address] [place], [place] 5732406-17-2024 14:25-0400 Systolic blood ulrrggsn344 mm[Hg]MD Rosalie Payne Work Phone: 1(852)[facility] [place], [place] 8941406-17-2024 11:31-0400 Body haxcfh759.1 cmMD Rosalie Payne Work Phone: 1(917)[address] [place], [place] 5732406-17-2024 11:31-0400 Body uhalmcmbtly32.4 [degF]MD Rosalie Payne Work Phone: 1(690)[address] [place], [place] 5732406-17-2024 11:31-0400 Body mhewzb73.11 kg Rosalie Payne Work Phone: 1(278)[address] [place], [place] 5732405-09-2024 14:21-0400 Body tzedra288.1 [facility] 14:21-0400Body mass index (BMI) [Ratio]28.3 kg/l5WyegwbfqbU[facility]05-09-2024 14:0400Body segjbe16.11 kgU[facility]05-09-2024 14:-0400Diastolic blood ryjitlpf18 mm[Hg][facility] 07-25-2023 14:21-0400Heart rate81 /min[facility] 07-25-2023 14:-0400Systolic blood kgaqixja252 mm[Hg][facility]01-17-2024 14:55-0500Diastolic blood yougkiif12 mm[Hg]Myron Marroquin [address]01-17-2024 14:55-0500Heart dnok773 /minDavid Daniel [address]01-17-2024 14:55-0500Mean blood ekuupgde928 mm[Hg]Myron Marroquin [address]01-17-2024 14:55-0500 Systolic blood ydxqrgdb352 mm[Hg]Myron Marroquin [address]01-17-2024 14:53-0500Heart rate98 /minDavid Vaniaos [address] [place], [place] 7126901-17-2024 14:53-8117FyD8% (BldA) [Mass fraction]99 %Myron Marroquin [address] [place], [place] 7126901-17-2024 14:53-0500 Diastolic blood euipizjh18 mm[Hg]Myron Marroquin [address]01-17-2024 14:53-0500Mean blood taposjdm729 mm[Hg]Myron Marroquin [address]01-17-2024 14:53-0500 Systolic blood gboqcosb479 mm[Hg]Myron Pocos [facility]01-17-2024 14:52-0500 Respiratory rate16 /minDavid Pocos [facility]01-15-2024 10:45-0500Body .1 cmAmanda Kristine Other [place] [employer] Other 01-15-2024 10:45-0500Body mass index (BMI) [Ratio] 28.29 kg/u4Lvhodc Kristine Other [place] [employer] [employer] Other 01-15-2024 10:45-0500Body vsxvnbbibrk75.1 [degF]Destinee Kristine Other [place] [employer] Other 01-15-2024 10:45-0500Body udpdzg69.11 kgAmanda Kristine Other [facility] Other 01-15-2024 10:45-0500Respiratory rate18 /minAmanda Kristine Other [employer] Other 01-15-2024 10:45-2483BxV8% (BldA) [Mass fraction]99 % Destinee Kristine Other [employer] Other 06-06-2022 11:25-0400Body wcngai462.1 cmPamela Martha Other [employer] Other 06-06-2022 11:25-0400Body mass index (BMI) [Ratio] 27.12 kg/h3Tifkjn Martha Other [employer] Other 06-06-2022 11:25-0400Body hblbrdytdwg56.6 [degF]Carlie Thomas Other [facility] [employer] Other 06-06-2022 11:25-0400Body hdamyi52.94 kgCarlie Thomas Other [facility] [employer] Other 06-06-2022 11:25-0400Respiratory rate18 /minCarlie Thomas Other [facility] [employer] Other 06-06-2022 11:25-6872DuF4% (BldA) [Mass fraction]97 % Carlie Thomas Other [facility] [employer] Other 03-09-2022 20:36-0500Body pazdmldjwhq76.7 [degF]Artis Yoder DO Work Phone: [facility] CenterI-frontdeskPgmpse73-61-0177 20:36-0500Diastolic blood lvzsggxu10 mm[Hg]Artis Yoder DO Work Phone: [facility] CenterI-frontdeskUpvypr70-79-5494 20:36-0500Heart afgo840 /min Artis Yoder DO Work Phone: [facility] CenterI-frontdeskBxhgcr76-69-1574 20:36-0500Respiratory rate16 /minArtis Yoder DO Work Phone: [facility] CenterI-frontdeskJkpakv97-09-9122 20:36-3631JmE3% (BldA) [Mass fraction]97 %Artis Herithad DO Work Phone: [facility] CenterI-frontdeskDxjszl61-69-1069 20:36-0500Systolic blood ufpnrbsc415 mm[Hg]Artis Yoder DO Work Phone: [facility] CenterI-frontdeskOkhzbl96-16-7007 13:10-0500Body eytweh680.1 cm Adriana Evangelista Other [facility] [employer] Other 02-24-2022 13:10-0500Body mass index (BMI) [Ratio] 27.12 kg/h6Xveehqaay Jean Carlos Other [employer] Other 02-24-2022 13:10-0500Body xkcuneuzgwt13.8 [degF] Adriana Garciaault Other [employer] Other 02-24-2022 13:10-0500Body xiapoe48.94 kgStjen Evangelista Other [employer] Other 02-24-2022 13:10-0500Diastolic blood nseccsce72 mm[Hg] Adriana Garciaault Other [employer] Other 02-24-2022 13:10-0500Respiratory rate18 /minSfeliz Garciaault Other [employer] Other 02-24-2022 13:10-6967YpG4% (BldA) [Mass fraction]99 % Adriana Garciaault Other [employer] Other 02-24-2022 13:10-0500Systolic blood auopxfis465 mm[Hg] Adriana Jean Carlos Other [employer] Other 02-14-2022 11:40-0500Body lqetrm295.1 cmPamelsridhar Thomas Other [employer] Other 02-14-2022 11:40-0500Body mass index (BMI) [Ratio] 26.62 kg/y2Ggtkua Martha Other [employer] Other 02-14-2022 11:40-0500Body bpgkkfsumne64.6 [degF]Carlie Thomas Other [employer] Other 02-14-2022 11:40-0500Body kddcqa77.58 kgCarlie Thomas Other [employer] Other 02-14-2022 11:40-0500Respiratory rate18 /minCarlie Thomas Other [employer] Other 02-14-2022 11:40-1160QdX7% (BldA) [Mass fraction]99 % Carlie Thomas Other [employer] Other 01-21-2022 12:00-0500Body puqfyt559.1 cmCreyes Ashley Other [employer] Other 01-21-2022 12:00-0500Body mass index (BMI) [Ratio] 26.62 kg/u1PhunaqSandeep Ramirez Other [employer] Other 01-21-2022 12:00-0500Body pjbigihkcga76.6 [degF]Sandeep Ramirez Other [employer] Other 01-21-2022 12:00-0500Body jyuzou71.58 kgSandeep Ramirez Other [employer] Other 01-21-2022 12:00-5774JnD1% (BldA) [Mass fraction]98 % Sandeep Ramirez Other [employer] Other 09-28-2021 23:25-0400Diastolic blood ioikbolf53 mm[Hg] David Dominguez MD Work Phone: [facility] [employer] Work Phone: 1(779) 723-788109-28-2021 23:25-0400Systolic blood qmkadnvs254 mm[Hg] David Dominguez MD Work Phone: [phone] [employer] Work Phone: 1(951) 475-265309-28-2021 23:23-0400Body oplphu427.1 Mira Dominguez MD Work Phone: [facility] [employer] Work Phone: 1(805)356-245450-34918650-04-8463 23:23-0400Body mass index (BMI) [Ratio] 26.63 kg/y8KpwwscmDavid Dominguez MD Work Phone: [phone] [employer] Work Phone: 1(227) 223-128409-28-2021 23:23-0400Body euxmhhtkake34.29 [degF] David Dominguez MD Work Phone: [facility] [employer] Work Phone: 1(930) 451-840809-28-2021 23:23-0400Body ierorl30.58 kgDavid Dominguez MD Work Phone: [facility] [employer] Work Phone: 1(670) 394-897509-28-2021 23:23-0400Heart rate79 /Sharon Dominguez MD Work Phone: [phone] [employer] Work Phone: 1(789) 519-315109-28-2021 23:23-0400Respiratory rate14 /Sharon Dominguez MD Work Phone: [facility] [employer] Work Phone: 1(206) 225-255109-28-2021 23:23-2623DpX1% (BldA) [Mass fraction]99 % David Dominguez MD Work Phone: [facility] [employer] Work Phone: 1(252) 434-690007-05-2021 15:56-0400Body xwohydfgpto79.6 [degF][facility] [employer] Work Phone: 1(347) 729-980307-05-2021 15:56-0400Diastolic blood ceerznck05 mm[Hg] [employer] Work Phone: 1(225) 283-182007-05-2021 15:56-0400Heart wwwd234 /minW[employer] Work Phone: 1(330) 978-427207-05-2021 15:56-0400Respiratory rate16 /min[employer] Work Phone: 1(443) 250-544107-05-2021 15:56-8029EmD0% (BldA) [Mass fraction]100 % [employer] Work Phone: 1(306) 361-924407-05-2021 15:56-0400Systolic blood iiwjjqwu889 mm[Hg] [employer] Work Phone: Encounters Encounter DateEncounter TypeCare ProviderFacilityStart: 01-23-2025 End: 67-04-2590Naxqfrnkb Result EncounterCorey William DO Work Phone: n[facility] External Department UnsolicitedStart: 01-23-2025 End: 67-48-0988Yhfjdekjx Result EncounterCorey William DO Work Phone: n[facility] External Department UnsolicitedStart: 01-20-2025 End: 33-54-6144Aedwxq Herson ARELLANO Work Phone: [facility]YNStart: 01-20-2025 End: 96-62-3581Mbgibb Herson ARELLANO Work Phone: [facility]BGYNStart: 01-20-2025 End: 67-88-2886Gqzlyuozq Result EncounterCorey William DO Work Phone: noms External Department UnsolicitedStart: 01-20-2025 End: 65-35-7425Rupxgoij flow Arsenio ARELLANO Work Phone: [facility] OBGYNComment on above:Third trimester ([facility]); 35 weeks gestation of ([facility])Start: 01-20-2025 End: 56-74-5865myjscqtlirKDY RAMEYNot AvailableStart: 01-11-2025 End: 69-14-1032Fjyuqxduy Result EncounterCorey William DO Work Phone: [facility] External Department UnsolicitedStart: 01-11-2025 End: 47-56-1502Upypuiklp Result EncounterCorey William DO Work Phone: NOS[facility] External Department UnsolicitedStart: 01-05-2025 End: 37-04-9194Rnavdm flowsheetCorey William DO Work Phone: [facility]BGYNStart: 01-05-2025 End: 18-18-1454Mcavkm flowsheetCorey William DO Work Phone: [facility]BGYNStart: 01-05-2025 End: 41-64-5956Wnknwtwv flow sheetCorey William DO Work Phone: [facility]BGYNComment on above:Third trimester ([facility]); 33 weeks gestation of ([facility])Start: 01-05-2025 End: 51-23-5829ejkhnpmocnIGMNM FAZIONot AvailableStart: 01-02-2025 End: 87-65-9862Qwbfngrjk Result EncounterGeneric External Data ProviderNOMS External Department UnsolicitedStart: 01-02-2025 End: 40-97-3402Adzycnrjk Result EncounterGeneric External Data ProviderNOMS External Department UnsolicitedStart: 12-26-2024 End: 67-88-1306Qkwauahob Result EncounterGeneric External Data ProviderNOMS External Department UnsolicitedStart: 12-26-2024 End: 62-84-0468Mxaokhrdr Result EncounterGeneric External Data ProviderNOMS External Department UnsolicitedStart: 12-23-2024 End: 75-88-7023Juqdcn Cody Steen NP Work Phone: [facility]Start: 12-23-2024 End: 54-37-2089Soylfc Cody Steen NP Work Phone: [facility]BGYNStart: 12-23-2024 End: 63-86-7099Eyimjxgu flow sheetLuna Steen PRENATAL GENETIC COUNSELOR Work Phone: [facility] [place] [facility]BGYNComment on above:Third trimester ([facility] 31 weeks gestation of ([facility]Start: 12-23-2024 End: 83-18-6610ubxmlokkcbHHUCMMQT EBERLYNot AvailableStart: 12-09-2024 End: 73-14-9372Vpjoia flowsheetCorey William DO Work Phone: [facility]BGYNStart: 12-09-2024 End: 77-80-6000Zngurk flowsheetCorey William DO Work Phone: [facility] [facility]BGYNStart: 12-09-2024 End: 12-85-4262Oirkhlwu flow sheetCorey William DO Work Phone: [facility]BGYNComment on above:Third trimester ([facility]); 29 weeks gestation of ([facility]); Yeast infectionStart: 12-09-2024 End: 91-13-0062docysigelsLREYP FAZIONot AvailableStart: 11-27-2024 End: 86-46-8460fmxrghfnjqWNLXSUpper Valley Medical Centertart: 11-25-2024 End: 80-84-7977Qwtaur Cody Steen PRENATAL GENETIC COUNSELOR Work Phone: [facility]BGYNStart: 11-25-2024 End: 74-35-3093Pvkuev flowsRuss Steen PRENATAL GENETIC COUNSELOR Work Phone: [facility]BGYNStart: 11-25-2024 End: 48-04-9056Uoklrelk flow sheetLuna Steen PRENATAL GENETIC COUNSELOR Work Phone: [facility] OBGYNComment on above:Second trimester ([facility]); 27 weeks gestation of ([facility]); Evan's diseaseStart: 11-25-2024 End: 97-91-4888arrommbcbsERYTHUTN EBERLYNot AvailableStart: 11-24-2024 End: 22-20-1389Mdhgzbful Result EncounterGeneric External Data ProviderNOMS External Department UnsolicitedStart: 11-24-2024 End: 60-23-5595Aaefdxtct Result EncounterGeneric External Data ProviderNOMS External Department UnsolicitedStart: 11-12-2024 End: 97-10-2835Xhbkghglu Result EncounterGeneric External Data ProviderNOMS External Department UnsolicitedStart: 11-12-2024 End: 33-92-1463Oatnynael Result EncounterGeneric External Data ProviderNOMS External Department UnsolicitedStart: 11-03-2024 End: 07-18-6956Zdmjanhks Result EncounterGeneric External Data ProviderNOMS External Department UnsolicitedStart: 11-03-2024 End: 75-94-8631Ohlhggtba Result EncounterGeneric External Data ProviderNOMS External Department UnsolicitedStart: 10-28-2024 End: 49-91-4564Jpghloy encounter procedurePretty ARELLANO Work Phone: [facility] HealthcareStart: 10-28-2024 End: 19-66-6280Gtllvtog flow Arsenio ARELLANO Work Phone: [facility] OBGYNComment on above:Second trimester ([facility]); 23 weeks gestation of ([facility]); Diabetes mellitus screening; STD exposure; Well woman exam with routine gynecological exam; Heart palpitationsStart: 10-28-2024 End: 58-08-8398ynzdalvzlkDRG RAMEYNot AvailableStart: 10-28-2024 End: 49-16-1895Fymzxx Herson ARELLANO Work Phone: [facility]BGYNStart: 10-28-2024 End: 51-26-7605Canhte Herson ARELLANO Work Phone: [facility]BGYNStart: 10-28-2024 End: 44-15-6391Lmbiltzkn Result EncounterGeneric External Data ProviderNOMS External Department UnsolicitedStart: 10-28-2024 End: 21-06-1341Wdviklwa Result EncounterKrselene Enio PRENATAL GENETIC COUNSELOR Work Phone: noms External Department UnsolicitedStart: 10-06-2024 End: 11-94-6668Hxlosxjld Result EncounterCorey William DO Work Phone: noms External Department UnsolicitedStart: 10-06-2024 End: 52-54-9451Gyqoqzdoj Result EncounterCorey William DO Work Phone: [facility] External Department UnsolicitedStart: 09-30-2024 End: 70-71-5985Usohnxkl flow sheetCorey William DO Work Phone: noms BCP OBComment on above:19 weeks gestation of ([facility]); Second trimester ([facility])Start: 09-30-2024 End: 69-13-7874gszbhzjvzdCTPBE FAZIONot AvailableStart: 09-28-2024 End: 29-81-6707Kqvdlinjq Result EncounterGeneric External Data ProviderNOMS External Department UnsolicitedStart: 09-28-2024 End: 52-27-0188Lyxpdovjo Result EncounterGeneric External Data ProviderNOMS External Department UnsolicitedStart: 09-02-2024 End: 00-88-9955Mtiplivr flow Arsenio ARELLANO Work Phone: noms BCP OBComment on above:Second trimester ([facility]); 15 weeks gestation of ([facility]); Screening, , for anatomic survey ([facility])Start: 09-02-2024 End: 39-94-4722idhyhevqcuTQE RAMEYNot AvailableStart: 09-02-2024 End: 05-91-8988Gzdxti Herson ARELLANO Work Phone: [facility] BCP OBStart: 09-02-2024 End: 93-63-7222Tubllp Herson ARELLANO Work Phone: [facility] BCP OBStart: 08-31-2024 End: 14-84-8700Pmitrwhyq Result EncounterCorey William DO Work Phone: noms External Department UnsolicitedStart: 08-31-2024 End: 70-60-2731Qbwcnmoln Result EncounterCorey William DO Work Phone: noms External Department UnsolicitedStart: 08-05-2024 End: 42-03-5911Ebhgbn flowsheetCorey William DO Work Phone: noms BCP OBStart: 08-05-2024 End: 86-73-3802Eyfuft flowsheetCorey William DO Work Phone: noms BCP OBStart: 08-05-2024 End: 44-99-9072Opltrxpc flow sheetCorey William DO Work Phone: noms BCP OBComment on above:First trimester ; 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 ; 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)Start: 08-05-2024 End: 09-93-9422meeuwpuwolEGXPQ FAZIONot AvailableStart: 07-18-2024 End: 92-11-1037Szcljoemx Result EncounterGeneric External Data ProviderNOMS External Department UnsolicitedStart: 07-18-2024 End: 77-08-2965Nrrenorsh Result EncounterGeneric External Data ProviderNOMS External Department UnsolicitedStart: 07-16-2024 End: 57-50-3135Yrctca outpatient visit 5 minutesNoms Bcp Ob William NurseNOMS BCP OBComment on above:GA: 1w6oVqjlc: 07-16-2024 End: 49-01-1183iykbddkrsoCFOZO FAZIONot AvailableStart: 02-26-2024 End: 18-59-1331Tmpvosq encounter procedureDavid A Pocos DO Work Phone: noms NB ORTHOComment on above:S/P reconstruction of ACL of left knee using bone-patellar tendon-bone autograft (Primary Dx)Start: 02-26-2024 End: 89-45-1528gfijpjcibsKBPDW A POCOSNot AvailableStart: 02-19-2024 End: 66-14-0591Bmuscl outpatient visit 25 minutesEdjay Payne MD Work Phone: [facility] CI FM 100Comment on above:Subclinical hypothyroidism (CMS/HCC) (Primary Dx); 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CMS/HCC); Cigarette smoker; Non morbid obesity due to excess calories; Postural orthostatic tachycardia syndrome (POTS); Abnormal bleeding in menstrual cycleStart: 02-19-2024 End: 45-91-6189gdfctqyffqJRMBQHCristal Parisi AvailableStart: 02-19-2024 End: 65-84-8352Ikpcuc Rodriguez Payne MD Work Phone: [facility] CI FM 100Start: 02-19-2024 End: 81-57-9951Ymdqer Rodriguez Payne MD Work Phone: [facility] CI FM 100Start: 12-27-2023 End: 61-23-0832djofynlcpoGirq J Spriggs PT Work Phone: [facility] FB PTComment on above:Acute pain of left knee (Primary Dx); Status post arthroscopic reconstruction of anterior cruciate ligament of left knee using quadricepstendon autograftStart: 12-27-2023 End: 45-89-5732Ehlarq Za Nagy PT Work Phone: [facility] FB PTStart: 12-27-2023 End: 84-25-0659Hvkoer Za Nagy PT Work Phone: NOWL FB PTStart: 12-24-2023 End: 31-83-3731ahjgttxcdiXvmqadht Wright SENIOR BENEFITS MANAGER Work Phone: N[facility] FB PTComment on above:Acute pain of left knee (Primary Dx); Status post arthroscopic reconstruction of anterior cruciate ligament of left knee using quadricepstendon autograftStart: 12-24-2023 End: 48-48-5805Lzuhth [place] HealthcarekearaAdelaVoicemaribel Vieira SENIOR BENEFITS MANAGER Work Phone: [facility] FB PTStart: 12-24-2023 End: 14-07-6263Oigwvw Geneva HealthcarekeaarAdelaVoicemaribel Vieira SENIOR BENEFITS MANAGER Work Phone: NOXZ FB PTStart: 12-17-2023 End: 46-56-9395zlrklyqkxfFzfs Pari Lilo PT Work Phone: [facility] FB PTComment on above:Acute pain of left knee (Primary Dx); Status post arthroscopic reconstruction of anterior cruciate ligament of left knee using quadricepstendon autograftStart: 12-17-2023 End: 03-46-9815Rjspfu flowsheetKystuart Yañez Lilo PT Work Phone: [facility] FB PTStart: 12-17-2023 End: 20-81-0364Jckvgl Za Yañez Lilo PT Work Phone: NOHQ FB PTStart: 12-09-2023 End: 09-08-1957Jcxqrk Isabel Schwartz DO Work Phone: [facility] SWS ORTHOAOStart: 12-09-2023 End: 83-04-1381Nyarnb Isabel Schwartz DO Work Phone: [phone] SWS ORTHOAOStart: 12-09-2023 End: 61-94-0450Hklwefm encounter Hans Schwartz DO Work Phone: [facility] SWS ORTHOAOComment on above:Left knee injury, initial encounter (Primary Dx)Start: 12-03-2023 End: 00-51-4953iunztmowfgMijiszjb Vieira SENIOR BENEFITS MANAGER Work Phone: N[facility] FB PTComment on above:Acute pain of left knee (Primary Dx); Status post arthroscopic reconstruction of anterior cruciate ligament of left knee using quadricepstendon autograftStart: 12-03-2023 End: 09-24-0858Tlosgu Nikita Vieira SENIOR BENEFITS MANAGER Work Phone: [facility] FB PTStart: 12-03-2023 End: 81-25-1735Dlyebi Nikita Vieira SENIOR BENEFITS MANAGER Work Phone: [facility] FB PTStart: 11-19-2023 End: 07-45-9076pvgslwvtilMpbycl Tattersall PTANOMS FB PTComment on above:Acute pain of left knee (Primary Dx); Status post arthroscopic reconstruction of anterior cruciate ligament of left knee using quadricepstendon autograftStart: 11-19-2023 End: 59-36-7456Utnpmv flowsheetJennifer Tattersall PTANOMS FB PTStart: 11-19-2023 End: 14-29-2725Bfodfp flowsheetMariah Tattersall PTANOMS FB PTStart: 11-12-2023 End: 13-02-7720lmdshuwnggAvwtuqaa Wright SENIOR BENEFITS MANAGER Work Phone: noms FB PTComment on above:Acute pain of left knee (Primary Dx); Status post arthroscopic reconstruction of anterior cruciate ligament of left knee using quadricepstendon autograftStart: 11-12-2023 End: 94-47-6514Panemy Nikita Vieira SENIOR BENEFITS MANAGER Work Phone: noms FB PTStart: 11-12-2023 End: 32-31-0739Oifjyf Geneva HealthcarekearaJell Networks, LLCbrian Vieira SENIOR BENEFITS MANAGER Work Phone: noMS FB PTStart: 76-15-6640Nmo-patient / Non-visitMD Rosalie Payne Work Phone: [facility] Work Phone: Start: 09-02-2023 End: 11-54-8245Gxzattcho to same day surgery centerMD Rosalie Payne Work Phone: [facility] Work Phone: Start: 09-02-2023 End: 90-52-7701auuvfkkhwsMJ Rosalie Payne Work Phone: [facility] Work Phone: Start: 07-25-2023 End: 24-02-1736ruuuidsygiBtjeyohpoBucyrus Community Hospital Work Phone: Start: 07-25-2023 End: 58-09-2661Rsthebn encounter procedureSophie Physician Group[facility] Work Phone: Start: 04-23-2023 End: 55-16-8407zaxiuzclvgJkrua A PocosFacility:FTMCStart: 32-10-3087Kfpfo Jennifer Nagy PT Work Phone: noms FB PTStart: 04-03-2023 End: 89-41-3557qkvwqeqbpaTgowt A PocosFacility:FTMCStart: 04-03-2023 End: 52-34-3053Rmlzpzi encounter procedureDavid A Pocos [facility] Start: 04-01-2023 End: 20-87-4959xkimhgnqyqYeabjf Kristine Other [place] [employer] Other Start: 06-62-9970Itplhe outpatient visit 15 minutes Destinee GrobFPG Urgent Care ClydeStart: 05-01-2022 End: 51-39-0962tbhxiyvuhjDJ DOC WILLIAM .Facility:R4Kplyy: 08-21-2021 End: 85-51-1530zlpynrikteEantaa Dymond Other [place] [employer] Other Start: 61-11-0941Ymgyso outpatient visit 15 minutes Carlie ThomasFPG Urgent Care ClydeStart: 07-26-2021 End: 48-69-0839zfmmsntettMF DOC WILLIAM .Facility:G7Ecoqa: 18-00-5928Cxgpplzrf department patient visitARTIS YODERTriHealth McCullough-Hyde Memorial Hospitaltart: 05-24-2021 End: 52-38-2804Ywktbchgk department patient visitArtis Yoder DO Work Phone: [facility] EDComment on above:Contusion of left knee, initial encounter (Primary Dx)Start: 05-11-2021 End: 29-33-2108ygtfpzbftgSujxlhopj Breault Other [facility] [employer] Other Start: 87-22-8781Jfxxfq outpatient visit 15 minutes Adriana EvangelistaFPG Urgent Care ClydeStart: 05-01-2021(URG) Urgent Care Visit Carlie ThomasFPG Urgent Care ClydeStart: 05-01-2021 End: 28-17-6500ohmvnpauqgOuravk Dymond Other nort [employer] Other Start: 04-07-2021 End: 87-12-7047wjefygevyzJpkkfn Ashley Other [facility] [employer] Other Start: 58-23-0637Eadpaf outpatient visit 15 minutes Sandeep RamirezFPG Urgent Care ClydeStart: 12-14-2020 End: 72-77-5805Fiqyqnfxy department patient visitCIPRIAN RANDWVUMedicine Harrison Community Hospitaltart: 12-14-2020 End: 77-62-0360Cvzxrnloq department patient visitCiprian Frankie MURRIETA Work Phone: [facility] EDComment on above:Tailbone injury, initial encounter (Primary Dx)Start: 09-19-2020 End: 54-66-0815Fpmmxchiu department patient visitShelby Memorial Hospital EDComment on above:Closed head injury, initial encounter (Primary Dx)Start: 07-15-2017 End: 63-91-7221JsjqcikxhjCTWJJJ P V[facility]ASCTogus [facility]: 05-15-2017 End: 49-42-5912XypmvpvinpYNVYGZ P VARGASCnationwide children's hospitaland [facility]: 04-30-2017 End: 64-46-9533RszxxbltzuEQFMES P VARGASCnationwide children's hospitaland [facility]: 04-29-2017 End: 71-68-8574SdydzcpaboTMGONZ P VARGASCTogus VA [facility] Center: 03-13-2017 End: 61-67-1034IapuajfzpxBGEXK MCKENZIE PABLOFacility:[facility] [[email or web address]] Procedures DateProcedureProcedure DetailPerforming ClinicianStart: 66-22-6259YP OB BPP W NON-STRESSCorey William DO Work Phone: Start: 98-76-1397XFE THYROID STIM HORMONECorey William DO Work Phone: Start: 30-55-0832NW OB BPP W NON-STRESSCorey William DO Work Phone: Start: 47-96-4749Jjquf dip stick/tablet rgnt non-auto w/o micrscpAmy Dm ARELLANO Work Phone: Start: 70-15-8353IS OB BPP W NON-STRESSCorey William DO Work Phone: Start: 29-25-6081Gswvi dip stick/tablet rgnt non-auto w/o micrscpCorey William DO Work Phone: Start: 81-84-7322EN OB BPP W NON-STRESSGeneric External Data ProviderStart: 55-60-0137EX OB GROWTHGeneric External Data ProviderStart: 26-16-0344WT OB BPP W NON-STRESSGeneric External Data ProviderStart: 78-02-8479PBQ THYROID STIM HORMONECorey William DO Work Phone: Start: 92-74-9853Taehq dip stick/tablet rgnt non-auto w/o micrscpKristina Enio PRENATAL GENETIC COUNSELOR Work Phone: Start: 41-88-1754Kuakh dip stick/tablet rgnt non-auto w/o micrscpCorey William DO Work Phone: Start: 85-70-5740Rqxdk dip stick/tablet rgnt non-auto w/o micrscpKristina Enio PRENATAL GENETIC COUNSELOR Work Phone: Start: 56-91-8740OA ECHO DOPPLER COMPLETEGeneric External Data ProviderStart: 79-36-7861YDL 12-LEADGeneric External Data Provider Start: 09-91-1100TEA CBC WITH AUTO DIFFKristina Enio PRENATAL GENETIC COUNSELOR Work Phone: Start: 72-26-1456FZYHRYWHI VAGINITIS (HTRX)Luna Enio PRENATAL GENETIC COUNSELOR Work Phone: Start: 02-26-6707Ocbsm dip stick/tablet rgnt non-auto w/o micrscpLuna Conraderly PRENATAL GENETIC COUNSELOR Work Phone: Start: 96-47-1866ZVA,APTIMA HPV,AGE GDLNAmy Dm PA Work Phone: Start: 39-61-5837HI OB CERVICAL LENGTHCorey William DO Work Phone: Start: 19-05-0552Ohdti dip stick/tablet rgnt non-auto w/o micrscpCorey William DO Work Phone: Start: 03-62-5741QHC THYROID STIM HORMONECorey William DO Work Phone: Start: 06-44-4263Cumbx dip stick/tablet rgnt non-auto w/o micrscpAmy Dm ARELLANO Work Phone: Start: 85-63-4329TJF THYROID STIM HORMONEGeneric External Data ProviderStart: 07-26-2833Jdmnr dip stick/tablet rgnt non-auto w/o micrscpCorey William DO Work Phone: Start: 79-96-7865INV TESTCorey William DO Work Phone: Start: 33-42-0634QEQ DRUG SCREEN RAPID (URINE)Generic External Data ProviderStart: 96-66-2361Ilndd dip stick/tablet rgnt non-auto w/o micrscpCorey William DO Work Phone: Start: 13-31-2903Rhynfaap blood count with white cell differential, automatedRosalie Payne MD Work Phone: Start: 67-30-8187Jqkefkmqwtwmv metabolic panelRosalie Payne MD Work Phone: Start: 64-29-0543Jxnxaamvvhnbb antibodyEdjay Payne MD Work Phone: Start: 14-13-7727IawmqwfnxxctfgeuwwdfrpfolyCF Rosalie Payne Work Phone: Start: 64-03-1709Vnetswd of reconstruction of anterior cruciate ligament tearStatus post arthroscopic reconstruction of anterior cruciate ligament of left knee using quadricepstendon autograftGretchen Vieira SENIOR BENEFITS MANAGER Work Phone: Start: 83-48-7956Cujogixcqt examination knee 3 views Artis Yoder DO Work Phone: Start: 57-86-5471Gmvdh sacrum & coccyx minimum 2 views David Dominguez MD Work Phone: Start: 42-18-5633Lr head/brain w/o contrast material Luis Carlos Fragoso [...] of left knee using quadricepstendon autograftGretchen Vieira SENIOR BENEFITS MANAGER Work Phone: History of reconstruction of anterior cruciate ligament tearStatus post arthroscopic reconstruction of anterior cruciate ligament of left knee using quadricepstendon autograftKyle J Lilo PT Work Phone: History of reconstruction of anterior cruciate ligament tearStatus post arthroscopic reconstruction of anterior cruciate ligament of left knee using quadricepstendon autograftGretchen Vieira SENIOR BENEFITS MANAGER Work Phone: History of reconstruction of anterior cruciate ligament tearStatus post arthroscopic reconstruction of anterior cruciate ligament of left knee using quadricepstendon autograftGretchen Vieira SENIOR BENEFITS MANAGER Work Phone: History of reconstruction of anterior cruciate ligament tearStatus post arthroscopic reconstruction of anterior cruciate ligament of left knee using quadricepstendon autograftMariah Tattersall SENIOR BENEFITS MANAGER Laparoscopic excision of cyst of left ovaryDavid Pocos Plan of Treatment DateCare ActivityDetailAuthorStart: 23-84-4954Lscqubvxm vaccinationInfluenza Vaccine (#1)NOMS HealthcareComment on above:Postponed from 11/16/2024 (Patient Refused)Start: 01-27-2025 End: 11-30-7520Xjxacru encounter hrfflxoxf65/12/2025 1:40 PM EST Routine [facility] [address] [facility] [place], [id number] Doc Thomas DO [address] [place] [address] [facility]BGYNStart: 01-20-2025 End: 29-71-1967Nsjcwjj encounter procedureNOMS [facility] OBGYNComment on above: ArrivedStart: 01-05-2025 End: 30-29-0581Nlcktov encounter procedureNOMS [facility] OBGYNComment on above: ArrivedStart: 12-23-2024 End: 29-07-8677Ijnddht encounter procedureNOMS [facility] OBGYNComment on above: ArrivedStart: 12-23-2024 End: 86-89-2469Vpudpdwgbrkc / ancillary services hdntobsvan34/08/2025 1:30 PM EDT Ancillary Procedure [facility] [address] [facility] [phone] [facility] OBGYNStart: 12-09-2024 End: 44-63-9031Uyjkweo encounter procedureNOMS Alba OBGYNComment on above: ArrivedStart: 11-25-2024 End: 57-60-3498VM biophysical profile w non stress testUS biophysical profile w non stress test Imaging Routine 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), Expires: 05/25/2025[facility] Work Phone: comment on above:Expected: 11/25/2024 (Approximate), Expires: 05/25/2025Start: 11-25-2024 End: 91-17-1706QN for pregnancyUS OB follow up transabdominal approach Imaging Routine Evan's disease Expected: 11/25/2024, Expires: 03/27/2025NOMS HealthcareComment on above:Expected: 11/25/2024, Expires: 03/27/2025Start: 11-25-2024 End: 99-66-9323Zjibodm encounter procedureNOMS Alba OBGYNComment on above: ArrivedStart: 86-10-0410HVIXI-19 Vaccine ()COVID-19 Vaccine ()NOMS HealthcareStart: 82-52-9602Mlsrxwluo vaccinationNOMS HealthcareStart: 10-28-2024 End: 74-85-6345Vsitmir encounter procedureNOMS BCP OBComment on above:Arrived Start: 10-28-2024 End: lead ECGECG 12 lead unit performed ECG Routine Heart palpitations Expected: 10/28/2024 (Approximate), Expires: 10/28/2025NOTN HealthcareComment on above:Expected: 10/28/2024 (Approximate), Expires: 10/28/2025Start: 10-28-2024 End: 57-50-1787RZE panel - Blood by Automated countCBC Lab Routine Diabetes mellitus screening Expected: 10/28/2024 (Approximate), Expires: 10/28/2025[facility] Work Phone: comment on above:Expected: 10/28/2024 (Approximate), Expires: 10/28/2025Start: 10-28-2024 End: 01-06-7273Ykupgtnhazhdku 2D completeEchocardiogram 2D complete Echocardiography Routine Heart palpitations Expected: 10/28/2024 (Approximate), Expires: 10/28/2026NOTN HealthcareComment on above:Expected: 10/28/2024 (Approximate), Expires: 10/28/2026Start: 10-28-2024 End: 52-24-2796Animzqmtbfv of glucose 1 hour after glucose challenge for glucose tolerance testGlucose tolerance, 1 hour Lab Routine Diabetes mellitus screening Expected: 10/28/2024 (Approximate), Expires: 10/28/2025NOMS HealthcareComment on above:Expected: 10/28/2024 (Approximate), Expires: 10/28/2025Start: 09-30-2024 End: 63-97-8457Cnzmljm encounter mpgqpomdh83/16/2025 3:40 PM EDT Routine [facility] [address] [place] [phone] Doc Thomas, DO [address] [place], [place] [address], [place] [id number] NOM[facility] BCP OBStart: 09-30-2024 End: 80-26-5577Ncowbqemxlgj / ancillary services brephnxnyz36/16/2025 2:30 PM EDT Ancillary Procedure [facility] [address] [place] [address] NOM[facility] BCP OBStart: 09-02-2024 End: 84-53-2943Fiunfej encounter procedureNOTN BCP OBComment on above:Arrived Start: 09-02-2024 End: 28-15-6216Lkmgz fetoprotein, maternalAlpha fetoprotein, maternal Lab Routine Second trimester ([facility]) Expected: 09/02/2024 (Approximate), Expires: 11/02/2024NOTN HealthcareComment on above:Expected: 09/02/2024 (Approximate), Expires: 11/02/2024Start: 09-02-2024 End: 50-06-5241UW for pregnancyUS OB 14+ weeks anatomy scan Imaging Routine Screening, , for anatomic survey ([facility]) Expected: 09/02/2024, Expires: 12/03/2024[facility] Work Phone: comment on above:Expected: 09/02/2024, Expires: 12/03/2024Start: 08-05-2024 End: 40-36-1929Ncbhnfh encounter procedureNOTN BCP OBComment on above:Arrived Start: 07-16-2024 End: 29-68-7066JXK/RhABO/Rh Lab Routine Missed menses , unspecified gestational age Expected: 07/16/2024 (Approximate), Expires: 07/16/2025NOTN HealthcareComment on above:Expected: 07/16/2024 (Approximate), Expires: 07/16/2025Start: 07-16-2024 End: 33-24-2683Vcdfh type and Indirect antibody screen panel - BloodType and screen Lab Routine Missed menses , unspecified gestational age Expected: 07/16/2024 (Approximate), Expires: 07/16/2025NOTN HealthcareComment on above:Expected: 07/16/2024 (Approximate), Expires: 07/16/2025Start: 07-16-2024 End: 08-05-1376Yuibz of abuse panel - Urine by Screen methodRapid drug screen, urine Lab Routine , unspecified gestational age Encounter for supervision of normal first in first trimester Expected: 07/16/2024 (Approximate), Expires: 07/16/2025NOTN HealthcareComment on above:Expected: 07/16/2024 (Approximate), Expires: 07/16/2025Start: 07-10-2024 End: 61-90-2852RB Pelvis transvaginalUS OB transvaginal Imaging Routine Missed menses Expected: 07/10/2024, Expires: 10/09/2024[facility] Work Phone: comment on above:Expected: 07/10/2024, Expires: 10/09/2024Start: 02-21-2024 End: 95-74-4288Tocsguo encounter kktxzujhj04/06/2024 8:00 AM EST Office Visit [facility] [address] [place] [address] Myron Marroquin DO [address] [place] [address] N[facility] SWS ORTHOAOStart: 02-19-2024 End: 64-28-8324Petxypi encounter eqdzhpbyr77/04/2024 3:30 PM EST Office Visit [facility] 100 [address] [facility] [address] [place] [address] Rosalie Payne MD [address] [facility] [address] [place] [address] (Fax) 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CMS/HCC); Chronic fatigue; Cigarette smoker; Non morbid obesity due to excess caloriesNOMS CI FM 100Comment on above: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CMS/HCC); Chronic fatigue; Cigarette smoker; Non morbid obesity due to excess caloriesStart: 02-19-2024 End: 73-83-6155Qtfnpjl, randomInsulin, random Lab Routine Non morbid obesity due to excess calories Postural orthostatic tachycardia syndrome (POTS) Expected: 02/19/2024 (Approximate), Expires: 02/18/2025[facility] Work Phone: Comment on above:Expected: 02/19/2024 (Approximate), Expires: 02/18/2025Start: 01-17-2024 End: 22-26-0959eyrrtkosac63/01/2024 2:30 PM EDT Treatment [facility] [address] [place] [phone] Stefano Nagy, PT [address] [place] [address] NOMS FB PTStart: 01-14-2024 End: 33-67-4276kztqkrnzmx16/29/2024 3:30 PM EDT Treatment [facility] PT [address] [place] [phone] Nereyda Vieira, SENIOR BENEFITS MANAGER [address] [place] [address] NOMS FB PTStart: 01-10-2024 End: 31-01-3173ehsqobzvxv72/25/2024 2:30 PM EDT Treatment [facility] [address] [place] [phone] Stefano Nagy, PT [address] [place] [address] [facility] FB PTStart: 01-07-2024 End: 94-18-9518yzawtndmcm15/22/2024 3:30 PM EDT Treatment [facility] [address] [place] [phone] Stefano Nagy, PT [address] [place] [address] [facility] FB PTStart: 01-03-2024 End: 40-64-5058rxyxnnotxf13/18/2024 2:30 PM EDT Treatment [facility] [address] [place] [phone] Stefano Nagy, PT [address] [place] [address] [facility] FB PTStart: 12-31-2023 End: 34-88-4395mmorimxaqm24/15/2024 3:30 PM EDT Treatment [facility] PT [address] [place] [phone] Jennifer Dozier PTANOMS FB PTStart: 12-27-2023 End: 96-46-0546yfjypxtspfBLVV FB PTComment on above:ArrivedStart: 12-24-2023 End: 18-72-8481ntrfzjbsyd37/08/2024 3:00 PM EDT Treatment [facility] PT [address] [place] [phone] Nereyda Vieira, SENIOR BENEFITS MANAGER [address] [place] [address] [facility] FB PTStart: 12-17-2023 End: 42-10-7639xkqtrktesw34/01/2024 3:00 PM EDT Treatment [facility] PT [address] [place] [phone] Stefano Nagy, PT [address] [facility] [place] [address] N[facility]S FB PTStart: 12-09-2023 End: 88-76-9966Lipsmwb encounter procedureNOMS [facility] ORTHOAOComment on above: ArrivedStart: 12-03-2023 End: 29-78-7156gggricbmvn71/17/2024 3:30 PM EDT Treatment [facility] PT [address] [facility] [place] [address] Angela Vieiratchen, SENIOR BENEFITS MANAGER [address] [place] [address] ArrivedNOMS FB PT Comment on above:ArrivedStart: 11-19-2023 End: 44-86-7916bndihqzudcXZMV FB PTComment on above:Acute pain of left knee (Primary Dx); Status post arthroscopic reconstruction of anterior cruciate ligament of left knee using quadricepstendon autograftStart: 72-70-4990Zvmnvghxw vaccination Influenza Vaccine (#1)[facility] HealthcareStart: 20-95-0112TkqukmyckMartins Ferry Hospitaltart: 05-07-2023 End: 12-90-4718Fgqqhyq encounter scvukdrdi55/20/2024 11:10 AM EST Office Visit [facility] [address] [place] [phone] Doc Thomas, DO [address] [place] [address] [facility] BCP OBStart: 05-03-2023 End: 14-01-1490Ttavflq encounter tukvejynk12/16/2024 11:00 AM EST Office Visit [facility] ORTHOAO [address] [place] [phone] Myron Marroquin, DO [address] [place] [address] [facility] SWS ORTHOAOStart: 04-23-2023 End: 12-76-2766Jufpvjb encounter ydmichatw85/06/2024 8:00 AM EST Procedure Visit [facility] EXT Myron Huerta, DO [address] [place] [address] [facility] EXT DEPStart: 04-22-2023 End: 82-35-7301dpvywpsxkb61/05/2024 2:30 PM EST Evaluation [facility]EN[facility] PT [address] [place] [address] Stefano Nagy, PT [address] [place] [address] [facility] FB PTStart: 17-90-3859Wtbzblaxk vaccinationInfluenza Vaccine (#1)[facility] CenterStart: 99-20-2392QFfB/Tdap/Td vaccine (5 - Td or Tdap)DTaP/Tdap/Td vaccine (5 - Td or Tdap)[facility]: 28-41-4856Bncxkwsfo vaccinationFlu vaccine (#1)[facility] HospitalStart: 93-17-3360Dhrwgcqkw for malignant neoplasm of cervixTrumbull Regional Medical Center Health Start: 01-55-0678GUuA/Tdap/Td vaccine (1 - Tdap)DTaP/Tdap/Td vaccine (1 - Tdap) [facility] Work Phone: start: 96-20-1019Tqhpwtzblgmz Vaccine: Pediatrics (0 to 5 Years) and At-Risk Patients (6 to 64 Years) (1 of 2 - PCV)Pneumococcal Vaccine: Pediatrics (0 to 5 Years) and At-Risk Patients (6 to 64 Years) (1 of 2 - PCV)[facility] CenterStart: 32-08-0538Erjrtkufu for Chlamydia trachomatis Chlamydia screenTrumbull Regional Medical Center HealthStart: 74-27-6168JUY screeningHIV screenTrumbull Regional Medical Center Health Start: 68-53-7303Vyarhiadu vaccine (2 of 2 - 2-dose childhood series)Varicella vaccine (2 of 2 - 2-dose childhood series)[facility] HospitalStart: 37-47-2064DRUAC-19 Vaccine (1)COVID-19 Vaccine (1)[employer] Phone: start: 78-98-9201Navqzjikfm ScreenDepression Screen [facility]: 67-12-1604OXT vaccine (1 - 2-dose series)HPV vaccine (1 - 2- dose series)[facility]: 20-02-9515PFZJH-19 Vaccine (1)COVID-19 Vaccine (1)[facility]: 34-45-7426Uuombienf vaccine (1 of 2 - 2-dose childhood series)Varicella vaccine (1 of 2 - 2-dose childhood series)[facility] Phone: start: 08-62-7749Giyxraxaj C screeningHepatitis C screenMercy HealthBacteria identified in Urine by CultureUrine culture Microbiology Routine Missed menses Ordered: 07/16/2024[facility] HealthcareComment on above:Ordered: 07/16/2024BC W Auto Differential panel - BloodCBC and differential Lab Routine Missed menses , unspecified gestational age Ordered: 07/16/2024[facility] HealthcareComment on above:Ordered: 07/16/2024HLAMYDIA TRACHOMATIS (GENITO/STI)CHLAMYDIA TRACHOMATIS (GENITO/STI) Lab Routine STD exposure Ordered: 10/28/2024[facility] HealthcareComment on above:Ordered: 10/28/2024 Cytology Cervical or vaginal smear or scraping studyPap Smear Pathology and Cytology Routine Well woman exam with routine gynecological exam Ordered: [facility] HealthcareComment on above:Ordered: 10/28/2024Hemoglobin A1c/Hemoglobin.total in BloodHemoglobin A1c Lab Routine Missed menses , unspecified gestational age Ordered: 07/16/2024[facility] HealthcareComment on above: Ordered: 07/16/2024Hepatitis B virus surface Ag [Presence] in Serum or Plasma by ImmunoassayHepatitis B surface antigen Lab Routine Missed menses , unspecified gestational age Ordered: 07/16/2024[facility] HealthcareComment on above: Ordered: 07/16/2024Hepatitis C virus Ab [Presence] in Serum or Plasma by ImmunoassayHepatitis C antibody Lab Routine Missed menses , unspecified gestational age Ordered: 07/16/2024[facility] HealthcareComment on above:Ordered: 07/16/2024HIV-1/HIV-2 antigen/antibody combination immunoassayHIV-1 and HIV-2 antibodies Lab Routine Missed menses , unspecified gestational age Ordered: 07/16/2024[facility] HealthcareComment on above:Ordered: 07/16/2024Neisseria gonorrhoeae DNA [Presence] in Unspecified specimen by QUEENIE with probe detection Neisseria gonorrhea DNA probe, direct Lab Routine STD exposure Ordered: 10/28/2024[facility] HealthcareComment on above:Ordered: 10/28/2024Patient Education Hiatal hernia Hemorrhoids Gastritis Know your [facility] Work Phone: Reagin Ab [Presence] in Serum by RPRRPR Lab Routine Missed menses , unspecified gestational age Ordered: 07/16/2024[facility] HealthcareComment on above:Ordered: 07/16/2024Rubella antibody, IgGRubella antibody, IgG Lab Routine Missed menses , unspecified gestational age Ordered: 07/16/2024[facility] HealthcareComment on above:Ordered: 07/16/2024 SURESWAB(R) ADVANCED VAGINITIS PLUS, TMASURESWAB(R) ADVANCED VAGINITIS PLUS, TMA Pathology and Cytology Routine STD exposure Ordered: 10/28/2024[facility] Healthcare Comment on above:Ordered: 10/28/2024 End: 02-60-6575Elfscabcpdl [Units/volume] in Serum or PlasmaTSH Lab Routine 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 DateEnd Date Rosalie Payne MD [address] [place] [address] (Fax) PCP - GeneralFamily Medicine07/24/22 Rosalie Payne MD [address] [place] [address] (Fax) PCP - [place] [facility]06/16/20Team MemberRelationshipSpecialtyStart DateEnd Date Rosalie Payne MD [address] [place] [address] (Fax) PCP - GeneralFamily Medicine07/24/22 Rosalie Payne MD [address] [place] [address] (Fax) PCP - [place] [employer]06/16/20Team MemberRelationshipSpecialtyStart DateEnd Date Rosalie Payne MD [address] [place] [address] (Fax) PCP - GeneralFamily Medicine07/24/22 Rosalie Payne MD [address] [place] [address] (Fax) PCP - [place] [employer]06/16/20Team MemberRelationshipSpecialtyStart DateEnd Date Rosalie Payne MD [address] [place] [address] (Fax) PCP - GeneralFamily Medicine07/24/22 Rosalie Payne MD [address] [place] [address] (Fax) PCP - [place] [employer]06/16/20Team MemberRelationshipSpecialtyStart DateEnd Date Rosalie Payne MD [address] [place] [address] (Fax) PCP - Generalmily Medicine07/24/22 Rosalie Payne MD [address] [place] [address] (Fax) PCP - [place] [employer]06/16/20Team MemberRelationshipSpecialtyStart DateEnd Date Rosalie Payne MD [address] [place] [address] (Fax) PCP - Generalmily Medicine07/24/22 Rosalie Payne MD [address] [place] [address] (Fax) PCP - [place] [employer]06/16/20Team MemberRelationshipSpecialtyStart DateEnd Date Rosalie Payne MD [address] [place] [address] (Fax) PCP - [facility]07/24/22 Rosalie Payne MD [address] [facility] [place] [address] (Fax) PCP - [place] [facility]06/16/20Te MemberRelationshipSpecialtyStart DateEnd Date Rosalie Payne MD [address] [facility] [address] [place] [address] (Fax) PCP - [facility]07/24/22 Rosalie Payne MD [address] [facility] [address] [place] [address] (Fax) [facility]06/16/20Te MemberRelationshipSpecialtyStart DateEnd Date Rosalie Payne MD [address] [facility] [address] [place] [address] (Fax) PCP - [facility]07/24/22 Rosalie Payne MD [address] [address] [place] [address] (Fax) PCP - [place] [facility]06/16/20 Goals (unrecognized section and content) [...] BE BASED ON THE PRIMARY CLINICAL RECORDS. [facility]. provides no warranty or guarantee of the accuracy or completeness of information in this document.
[2025-02-03 14:50] VITALS: BP 122/73; PULSE 95
== END 2025-02-03 15:26 | disposition home or self-care (01) ==
LOC: US 14:44 → FBC 14:46
PROVIDERS: PCP Family Medicine; Visit Provider Obstetrics & Gynecology
DX: O99.283 Endocrine, nutritional and metabolic diseases complicating pregnancy, third trimester (principal); E06.3 Autoimmune thyroiditis; Z3A.37 37 weeks gestation of pregnancy
CPT/HCPCS: 76818

== ENCOUNTER 2025-02-06 08:58 | Outpatient (OUT) | payer BC, SELFPAY ==
--- OUTSIDE RECORDS SUMMARY | 2025-01-27 13:40 | XMS_ITS | Encounter Summary ---
Author Organization [facility] Address [address] [place] [address] Care Team Providers Care Gift Wrapper Name Role Phone Danny Schuler MD Primary Care Provider [phone] Danny Schuler MD Unavailable [phone] Reason for Visit * ReasonCommentsRoutine Visit Encounter Details DateTypeDepartmentCare Team (Latest Contact Info)Jruzycntvgp47/12/2025 1:40 PM ESTRoutine [facility] [address] [place] [phone] Doc Thomas DO [address] [place] [address] 36 weeks gestation of ([facility]); Third trimester ([facility]); Gabby's disease; Low hemoglobin; Heart palpitations; Pelvic pressure in ([facility]) Social History Tobacco UseTypesPacks/DayYears UsedDateSmoking Tobacco: [...] relatives?Once a week12/11/2022How often do you attend zoroastrianism or latter-day services?More than 4 times per year12/11/2022o you belong to any clubs or organizations such as zoroastrianism groups, unions, fraternal or athletic groups, or [...] and heating?Somewhat hard 12/11/2022[facility] [place] of Occupational Health - Occupational Stress QuestionnaireAnswerDate RecordedDo you feel stress - tense, restless, nervous, or anxious, or unable to sleep at night because yourmind is troubled all the time - these days?Only a yorigd0912/11/2022Exercise Vital SignAnswerDate Recorded On average, how many [...] steady place to sleep or slept in [place] (including now)?No12/11/2022EducationAnswer Date RecordedWhat is the highest level of school you have completed or the highest degree you have received?11th grade12/10/2022Estimated Date of PefzyiipMmvuiaecHpa58/06/2025Based on last menstrual period of 05/16/2024Sex and Gender InformationValueDate RecordedSex Assigned at LgdpaHafgsv91/25/2023 10:10 AM EDTLegal KiyDrjguf67/15/2023 6:51 PM EDTGender TslbkiheTbweil20/25/2023 10:10 AM EDTSexual OrientationNot on filedocumented as of this encounter Last Filed Vital Signs Vital SignReadingTime TakenCommentsBlood Rneiyjnc790/80103/29/2024 2:05 PM EST Pulse--Temperature--Respiratory Rate--Oxygen Saturation--Inhaled Oxygen Concentration--Mzpbbu27.8 kg (176 lb)01/27/2025 2:05 PM ESTHeight--Body Mass Index30. 3:41 PM ESTdocumented in this encounter Progress Notes * Lissette Anton, PEDIATRIC LICENSED PRACTICAL NURSE - 01/27/2025 1:40 PM EST Reason for [...] Left 2019 OVARIAN CYST REMOVAL Left 05/20/2020 [facility] William VAGINAL DELIVERY REVIEW OF SYSTEMS [...] nursing note reviewed. Exam conducted with a preschool assistant teacher present. Vitals: Estimated body mass index is 30.21 kg/m?? as calculated from the following: Height as of 24: 5' 4 . Weight as of this encounter: 176 lb. BP: 120/80 Patient's last menstrual period was 05/16/2024. Assessment/Plan ICD-10-CM 1. 36 weeks gestation of ([facility]) Z3A.36 POCT urinalysis dipstick manually resulted 2. 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 Low hemoglobin D64.9 5. Heart palpitations R00.2 6. Pelvic pressure in ([facility]) O26.899 R10.20 Assessment/Plan Patient is doing [...] Plan of Treatment DateTypeDepartmentCare Team (Latest Contact Info)Pnukvyhivzz52/25/2025 1:20 PM ESTRoutine [facility] [address] [place] [phone] Pretty Chaidez PA [address] [place] [address] NameTypePriorityAssociated DiagnosesOrder ScheduleCULTURE, GROUP B STREP WITH SUSCEPTIBLITYLabRoutine Third trimester ([facility]) Expected: 01/27/2025, Expires: 01/27/2026documented as of this encounter Procedures Procedure NamePriorityDate/TimeAssociated DiagnosisCommentsPOCT URINALYSIS WYGYEIYLCcgysdg64/12/2025 2:14 PM EST 36 weeks gestation of ([facility]) Third trimester ([facility]) documented in this encounter Results * [...] Visit Diagnoses Diagnosis 36 weeks gestation of ([facility]) Third trimester ([facility]) state, incidental Gabby's disease Chronic lymphocytic thyroiditis Low hemoglobin Heart palpitations Palpitations Pelvic pressure in ([facility]) Other specified complication, antepartum documented in this encounter Care Teams Team MemberRelationshipSpecialtyStart DateEnd Date Danny Schuler MD [address] [address] PCP - GeneralFamily Medicine07/24/22 Danny Schuler MD [address] [place] [address] PCP - Ziggy Richard06/16/20documented as of this encounter
--- OUTSIDE RECORDS SUMMARY | 2025-02-03 13:30 | XMS_ITS | Encounter Summary ---
Author Organization [facility] Address [address] [place] [address] Care Team Providers Care Condenser Tube Tender Name Role Phone Danny Schuler MD Primary Care Provider [phone] Danny Schuler MD Unavailable [phone] Reason for Visit * ReasonCommentsRoutine Visit Encounter Details DateTypeDepartmentCare Team (Latest Contact Info)Znuhwlkwelp61/19/2025 1:30 PM ESTRoutine [facility] [address] [facility] [place] [phone] Doc Thomas DO [address] [facility] [place] [address] Third trimester ([facility]); 37 weeks gestation of ([facility]) Social History Tobacco UseTypesPacks/DayYears UsedDateSmoking Tobacco: Some [...] relatives?Once a week12/11/2022How often do you attend religious or scientologist services?More than 4 times per year12/11/2022o you belong to any clubs or organizations such as religious groups, unions, fraSigmoid Pharma or athletic groups, or school groups?No12/11/2022How often [...] and heating?Somewhat hard 12/11/2022[facility] [place] of Occupational Health - Occupational Stress QuestionnaireAnswerDate RecordedDo you feel stress - tense, restless, nervous, or anxious, or unable to sleep at night because yourmind is troubled all the time - these days?Only a hbriem3112/11/2022Exercise Vital SignAnswerDate Recorded On average, how many [...] degree you have received?11th grade12/10/2022Estimated Date of LfhtnlquVuxikfbhGlw66/06/2025Based on last menstrual period of 05/16/2024Sex and Gender InformationValueDate RecordedSex Assigned at IqpqcXgymza64/25/2023 10:10 AM EDTLegal HejRgvxkt91/15/2023 6:51 PM EDTGender NjgdblmkMiqevk44/25/2023 10:10 AM EDTSexual OrientationNot on filedocumented as of this encounter Last Filed Vital Signs Vital SignReadingTime TakenCommentsBlood Prgfrtjy085/6802/03/2025 1:45 PM EST Pulse--Temperature--Respiratory Rate--Oxygen Saturation--Inhaled Oxygen Concentration--Mhdxrr35.2 kg (179 lb)02/03/2025 1:45 PM ESTHeight--Body Mass [...] Left 2019 OVARIAN CYST REMOVAL Left 05/20/2020 [facility] William VAGINAL DELIVERY REVIEW OF SYSTEMS [...] 05/16/2024. Assessment/Plan ICD-10-CM 1. Third trimester ([facility]) Z34.93 2. 37 weeks gestation of ([facility]) Z3A.37 POCT urinalysis dipstick manually resulted Assessment/Plan [...] Plan of Treatment DateTypeDepartmentCare Team (Latest Contact Info)Dsjglzghetv89/25/2025 1:20 PM ESTRoutine [facility] [address] [facility] [address] Pretty Chaidez PA [address] [place] [address] documented as of this encounter Procedures Procedure NamePriorityDate/TimeAssociated DiagnosisCommentsPOCT URINALYSIS BUFSLFDTHenifbg71/19/2025 1:45 PM EST 37 weeks gestation of ([facility]) documented in this encounter Results * [...] 1:45 PM EST Narrative Authorizing ProviderResult TypeResult StatusCorey William DOPOINT OF CARE TEST ENTER/EDIT ORDERABLESFinal Result documented in this encounter Visit Diagnoses Diagnosis Third trimester ([facility]) state, incidental 37 weeks gestation of ([facility]) documented in this encounter Care Teams Team MemberRelationshipSpecialtyStart DateEnd Date Danny Schuler MD [address] [address] PCP - GeneralFamily Medicine07/24/22 Danny Schuler MD [address] [address] PCP - Ziggy Richard06/16/20documented as of this encounter
--- NOTE | 2025-02-06 | US_ITS ---
[address] [address] Patient Name: ALETA ELLINGTON MRN: [id number] date: 2000 Sex: F Assigned Patient Location: [facility] Current Patient Location: [facility] Accession/Order Number: [id number] Exam Date: 02/06/2025 09:05 Report Date: 02/06/2025 09:27 At the request of: SINTIA MARIE DO Procedure: US OB BPP w non-stress Biophysical profile. Reason for exam: Gabby's disease COMPARISON: 02/03/2025 TECHNIQUE: Transabdominal imaging of the gravid uterus was obtained. FINDINGS: The diesel mechanic apprentice reports a BPP of 8 out of 8. LYNN is normal at 18.8 cm. heart rate 165 bpm. US/US OB BPP w non-stress IMPRESSION: BPP 8 out of 8. Impression dictated by: Jermaine Nguyễn Jr., D.O. 02/06/2025 9:27 AM Dictation Location: [facility] Electronically authenticated by: [id number] Y Date: 02/06/2025 09:27
--- OUTSIDE RECORDS SUMMARY | 2025-02-06 09:01 | XMS_ITS | Encounter Summary ---
Author Organization [facility] Address [address] [place] [address] Care Team Providers Care Lens Marker Name Role Phone Danny Schuler MD Primary Care Provider [phone] Danny Schuler MD Unavailable [phone] Encounter Details DateTypeDepartmentCare Team (Latest Contact Info)Tdcbgkenlmn32/19/2025amboo flowsheet [facility] [place] [facility] [address] [place] [phone] Doc Thomas DO [address] [facility] [address] Brand[address] [place], [place] [address] Social History Tobacco UseTypesPacks/DayYears UsedDateSmoking Tobacco: Some [...] week12/11/2022How often do you attend sikh or spiritism services?More than 4 times per [...] care, and heating?Somewhat hard 12/11/2022[facility] [place] of Occupational Health - Occupational Stress QuestionnaireAnswerDate RecordedDo you feel stress - tense, restless, nervous, or anxious, or unable to sleep at night because yourmind is troubled all the time - these days?Only a lznajd8412/11/2022Exercise Vital SignAnswerDate Recorded On average, how many [...] degree you have received?11th grade12/10/2022Estimated Date of IepasqpvIjfqtersKxk31/06/2025Based on last menstrual period of 05/16/2024Sex and Gender InformationValueDate RecordedSex Assigned at KpechYrzbbq48/25/2023 10:10 AM EDTLegal TvoDqwsex64/15/2023 6:51 PM EDTGender FqxwqvvpZyayzp05/25/2023 10:10 AM EDTSexual OrientationNot on filedocumented as of this encounter Plan of Treatment DateTypeDepartmentCare Team (Latest Contact Info)Blzcqshwssk18/25/2025 1:20 PM ESTRoutine [facility] [address] [place] [phone] Pretty Chaidez PA [address] [place] [address] documented as of this encounter Visit Diagnoses Not on filedocumented in this encounter Care Teams Team MemberRelationshipSpecialtyStart DateEnd Date Danny Schuler MD [address] [address] PCP - GeneralFamily Medicine07/24/22 Danny Schuler MD [address] [address] PCP - [place] [employer]06/16/20documented as of this encounter
--- OUTSIDE RECORDS SUMMARY | 2025-02-06 09:01 | XMS_ITS | Encounter Summary ---
Author Organization [facility] Address [address] [place] [address] Care Team Providers Care Investor Name Role Phone Danny Payne MD Primary Care Provider [phone] Danny Payne MD Unavailable [phone] Encounter Details DateTypeDepartmentCare Team (Latest Contact Info)Pbzofmkmbpu14/08/2025Clinisync Result Encounter [facility] External Department Unsolicited Sintia Thomas, DO [address] [facility] [place] [address] Social History Tobacco UseTypesPacks/DayYears UsedDateSmoking Tobacco: Some [...] week12/11/2022How often do you attend nondenominational or scientologist services?More than 4 times per year12/11/2022o you belong to any clubs or organizations such as nondenominational groups, unions, fraNightstaRx or athletic groups, or school groups?No12/11/2022How often [...] food, housing, medical care, and heating?Somewhat hard 12/11/2022[facility] [place] of Occupational Health - Occupational Stress QuestionnaireAnswerDate RecordedDo you feel stress - tense, restless, nervous, or anxious, or unable to sleep at night because yourmind is troubled all the time - these days?Only a heiosv3512/11/2022Exercise Vital SignAnswerDate Recorded On average, how many [...] degree you have received?11th grade12/10/2022Estimated Date of AuyhqkflRhsueulwFmh10/06/2025Based on last menstrual period of 05/16/2024Sex and Gender InformationValueDate RecordedSex Assigned at HoknvIawsud58/25/2023 10:10 AM EDTLegal NmoUfdvqa55/15/2023 6:51 PM EDTGender NbempxiqIriuck97/25/2023 10:10 AM EDTSexual OrientationNot on filedocumented as of this encounter Plan of Treatment DateTypeDepartmentCare Team (Latest Contact Info)Penymtdpgyq40/25/2025 1:20 PM ESTRoutine [facility] [address] [place] [phone] Pretty Chaidez PA [address] [facility] [address] [place], [place] [address] documented as of this encounter Procedures Procedure NamePriorityDate/TimeAssociated DiagnosisCommentsUS OB BPP W NON-VILQXI0501/23/2025 9:25 AM EST documented in this encounter Results * US OB BPP W NON-STRESS (01/23/2025 9:25 AM EST)Anatomical Region LateralityModalityOtherSpecimen (Source)Anatomical Location / Laterality Collection Method / VolumeCollection TimeReceived Time01/23/2025 9:25 AM EST Narrative 01/23/2025 9:28 AM EST [facility] ?[address] ? [place] [address] ? Ultrasound Report ? Signed ? Patient: RAKEL,ALETA N ?MR#: [id number] ?? : 2000 ?Acct:[id number] ?? Age/Sex: 24 / F ?ADM Date: 01/23/25 ?? Loc: US ? Attending Dr: Sintia Thomas D.O. ? Ordering Physician: Sintia Thomas D.O. ?? Date of Service: 01/23/25 ?? Procedure(s): US OB BPP w non-stress ?? Accession Number(s): [id number] ? cc: Sintia Thomas D.O.; DANNY PAYNE ? [facility] ? [address] ? [place] [address] ? Patient Name: ?? ALETA CASTRO ? MRN: [facility]:[id number] ? date: 2000 ?Sex: F ?? Assigned Patient Location: [facility] ?? Current Patient Location: [facility] ?? Accession/Order Number: [id number] ?? Exam Date: 01/23/2025 ??08:41 ?Report Date: [...] Dictation Location: RADIO-PC-17 ? Electronically authenticated by: [id number] ??Y ?? Date: 01/23/2025 ??09:25 ? Dictated By: ?Emmanuel Dalton M.D. ? Signed By: ?01/23/25927 ? DD/ 0925 ? TD/TT: ? Events Traffic Controller: Procedure Note Radiology, Radiologist, - 01/23/2025 [place] [address] Ultrasound Report Signed Patient: ALETA CASTRO NMR#: [id number] : 2000Acct:[id number] Age/Sex: 24 / FADM Date: 01/23/25 Loc: US Attending Dr: Sintia Thomas D.O. Ordering Physician: Sintia Thomas D.O. Date of Service: 01/23/25 Procedure(s): US OB BPP w non-stress Accession Number(s): [id number] cc: Sintia Thomas D.O.; DANNY PAYNE The [address] [address] Patient Name: ALETA CASTRO MRN: [id number] date: 2000 Sex: F Assigned Patient Location: [facility] Current Patient Location: [facility] Accession/Order Number: [id number] Exam Date: 01/23/2025 08:41 Report Date: 01/23/2025 [...] Dalton M.D. 01/23/2025 9:25 AM Dictation Location: [facility] Electronically authenticated by: [id number] Y Date: 9:25 Dictated By: Emmanuel Dalton M.D. Signed By:01/23/25927 DD/ 4 TD/TT: Events Traffic Controller: Authorizing ProviderResult TypeResult StatusCorey William DOCLINISYNC IMAGINGFinal Result documented in this encounter Visit Diagnoses Not on filedocumented in this encounter Care Teams Team MemberRelationshipSpecialtyStart DateEnd Date Danny Payne MD [address] [place] [address] PCP - GeneralFamily Medicine07/24/22 Danny Payne MD [address] [place] [address] PCP - Ziggy Richard06/16/20documented as of this encounter
--- OUTSIDE RECORDS SUMMARY | 2025-02-06 09:01 | XMS_ITS | Clinical Summary ---
Author Organization [facility] Address [address] [place] [place] [address] Care Team Providers Care Sales Product Specialist Name Role Phone Unavailable Primary Care Provider Unavailabl e Allergies Active AllergyReactionsCriticalityNoted EnbxSukogsnbJjlczxwtajurMaroh73/05/2021 Other Reaction(s): hives OslshFaorOeq01/05/2021 Other Reaction(s): Unknown TnusoxjpoXxperft58/25/2023 Other Reaction(s): body numbness Medications MedicationSigDispense QuantityRefillsLast FilledStart DateEnd DateStatus ondansetron ODT (Zofran-ODT) 4 mg disintegrating tablet Take 4 mg by mouth if needed.Active no.37/iron/folic acid (PRENATA ORAL) Take by mouth in the morning.Active Active Problems ProblemNoted DateDiagnosed Date28 weeks gestation of kcnhkwunt94/14/2025bnormal bleeding in menstrual cycle02/19/2024Status post arthroscopic reconstruction of anterior cruciate ligament of left knee using quadricepstendon autograft 05/10/2023cute pain of left knee4Chronic wuuvizg9412/10/2022igarette vhlczl6312/10/2022yst of ovary12/10/2022Hashimoto's gwcflmv2112/10/2022Hypotension determined by vagnwkrdmkh27/25/2023Juvenile osteochondrosis of tibial tuberosity 12/10/2022Non morbid obesity due to excess hjkoqiue80/25/2023ostural orthostatic tachycardia syndrome (POTS)12/14/20182544Nmuvzcjudsd30/15/2019Syncope and /15/2019CommentsYes Encounters DateTypeDepartmentCare QhydLonvglkcplb46/12/2025 3:20 PM EDTOffice Visit [facility] [address] [place] [address] Bibi Singh MD Syncope and collapse (Primary Dx); Neurocardiogenic syncope; 28 weeks gestation of ; Gabby's diseasefrom Last 3 Months Family History RelationNameStatusCommentsFatherAliveMotherAlive Social History Tobacco UseTypesPacks/DayYears UsedDateSmoking Tobacco: FormerCigarettes Smokeless Tobacco: Former Tobacco Cessation:Counseling Given: Not Answered Comments:Quite 6 month ago Alcohol UseStandard Drinks/WeekCommentsNot Currently0 (1 standard drink = 0.6 oz pure alcohol)[place] Safety & EnvironmentAnswerDate RecordedFear of Current or Ex-PartnerNot on file05/09/2023Emotionally AbusedNot on file05/09/2023hysically AbusedNot on file05/09/2023Sexually AbusedNot on file05/09/2023hysically or Sexually AbusedNot on file05/09/2023CommentsYesSex and Gender InformationValueDate RecordedSex Assigned at FwuyqRfiqfp39/08/2025 2:10 PM EDT Legal ZsaHxcfls81/29/2022 11:55 PM EDTGender YkluvtegOeewex89/08/2025 2:10 PM EDTSexual OrientationHeterosexual or Luhqczpb47/08/2025 2:10 PM EDT Last Filed Vital Signs Vital SignReadingTime TakenCommentsBlood Odmmkcub215/8009 4:02 PM EDT Exopm661911/27/2024 4:02 PM EDTTemperature--Respiratory Rate--Oxygen Azsidlrokw92% 11/27/2024 4:02 PM EDTInhaled Oxygen Concentration--Nikgqo00 kg (172 lb) 11/27/2024 4:02 PM WMEAjwmlt775.1 cm (5' 5 )11/27/2024 4:02 PM EDTBody Mass Index28.62011/27/2024 4:02 PM EDT Plan of Treatment Health MaintenanceDue DateLast DoneCommentsIPV Vaccines (4 of 4 - 4-dose series) , 1999, 1999Depression Fcjfljejt94/25/2012 Varicella Vaccines (2 of 2 - 2-dose childhood series)HPV Vaccines (1 - 3-dose series)06/09/2014dult Gztvcor96COVID-19 Vaccine (1 - season)2024Influenza Vaccine (#1)2024Pap Smear Zoster Vaccines (1 of 2)Pneumococcal Vaccine: Pediatrics (0 to 5 Years) and At-Risk Patients (6 to 64 Years)Aged Out 03/26/2000No longer eligible based on patient's age to complete this topicHIB QlkctwyyTkjgdnimc59/27/2001, 09/11/2000, 03/26/2000, Additional history exists Meningococcal AbwgulmAwmtxakjq65/28/2017Meningococcal B VaccineAged OutNo longer eligible based on patient's age to complete this topicRotavirus VaccinesAged Out No longer eligible based on patient's age to complete this topic Insurance
--- OUTSIDE RECORDS SUMMARY | 2025-02-06 09:01 | XMS_ITS | Encounter Summary ---
Author Organization [facility] Address [address] [place] [address] Care Team Providers Care Breastfeeding Educator Name Role Phone Danny Schuler MD Primary Care Provider [phone] Danny Schuler MD Unavailable [phone] Encounter Details DateTypeDepartmentCare Team (Latest Contact Info)Qumwktehkpu71/12/2025Clinisync Result Encounter [facility] External Department Unsolicited Doc Thomas, DO [address] [place] [address] Social History Tobacco UseTypesPacks/DayYears UsedDateSmoking Tobacco: Some [...] relatives?Once a week12/11/2022How often do you attend scientologist or religion services?More than 4 times per year12/11/2022o you belong to any clubs or organizations such as scientologist groups, unions, fraOpenTable or athletic groups, or school groups?No12/11/2022How often [...] care, and heating?Somewhat hard 12/11/2022[facility] [place] [facility] - Occupational Stress QuestionnaireAnswerDate RecordedDo you feel stress - tense, restless, nervous, or anxious, or unable to sleep at night because yourmind is troubled all the time - these days?Only a sdysmb2612/11/2022Exercise Vital SignAnswerDate Recorded On average, how many [...] degree you have received?11th grade12/10/2022Estimated Date of RjwcgdjwJkqqenpnOex10/06/2025Based on last menstrual period of 05/16/2024Sex and Gender InformationValueDate RecordedSex Assigned at UmqvjZvatwa64/25/2023 10:10 AM EDTLegal CzwNnrlbq86/15/2023 6:51 PM EDTGender KkxxuccqHyfmpb28/25/2023 10:10 AM EDTSexual OrientationNot on filedocumented as of this encounter Plan of Treatment DateTypeDepartmentCare Team (Latest Contact Info)Sjeuqbvzgtu22/25/2025 1:20 PM ESTRoutine [facility] [address] [facility] [place] [phone] Pretty Chaidez PA [address] [place] [address] documented as of this encounter Procedures Procedure NamePriorityDate/TimeAssociated DiagnosisCommentsSTREP GP B CULTURE+UTMDNgmmdix55/12/2025 1:57 PM EST documented in this encounter Results * STREP GP B CULTURE+RFLX (01/27/2025 1:57 PM EST)ComponentValueRef RangeTest MethodAnalysis TimePerformed AtPathologist SignatureSTREP GP B CULTURE+RFLX ??Strep Gp B Culture+Rflx TBHSTREP GP B CULTURE+RFLXNegativeTBHSTREP GP B CULTURE+RFLXCenters for Disease Control and Prevention (CDC) andTBHSTREP GP B CULTURE+RFLXAmerican Congress of Obstetricians and GynecologistsTBHSTREP GP B CULTURE+RFLX(ACOG) guidelines for prevention of group BTBHSTREP GP B CULTURE+RFLXstreptococcal (GBS) disease specify co-collection ofTBHSTREP GP B CULTURE+RFLXa vaginal and rectal swab specimen to maximizeTBHSTREP GP B CULTURE+RFLXsensitivity of GBS detection. Per the CDC and ACOG,TBHSTREP GP B CULTURE+RFLXswabbing both the lower vagina and rectumTBHSTREP GP B CULTURE+RFLXsubstantially increases the yield of detectionTBHSTREP GP B CULTURE+RFLXcompared with sampling the vagina alone.TBH STREP GP B CULTURE+RFLXPenicillin G, ampicillin, or cefazolin are indicatedTBH STREP GP B CULTURE+RFLXfor intrapartum prophylaxis of GBSTBHSTREP GP B CULTURE+RFLXcolonization. Reflex susceptibility testing should beTBHSTREP GP B CULTURE+RFLXperformed prior to use of clindamycin only on GBSTBHSTREP GP B CULTURE+RFLXisolates from penicillin-allergic women who areTBHSTREP GP B CULTURE+RFLXconsidered a high risk for anaphylaxis. Treatment withTBHSTREP GP B CULTURE+RFLXvancomycin without additional testing is warranted ifTBHSTREP GP B CULTURE+RFLXresistance to clindamycin is noted.TBHSTREP GP B CULTURE+RFLX Performed at: - [facility] ServicesTBHSTREP GP B CULTURE+[id number] [place], [place] [id number] GP B CULTURE+RFLXLab Director: Boris Quigley PhD, Phone: [phone] (Source)Anatomical Location / Laterality Collection Method / VolumeCollection TimeReceived Time01/27/2025 1:57 PM EST 01/27/2025 8:34 PM EST Narrative [facility] - 02/01/2025 3:08 PM EST Authorizing ProviderResult TypeResult StatusCorey William DOLAB BLOOD ORDERABLES Final ResultPerforming OrganizationAddressCity/State/ZIP CodePhone Number [facility] documented in this encounter Visit Diagnoses Not on filedocumented in this encounter Care Teams Team MemberRelationshipSpecialtyStart DateEnd Date Danny Schuler MD [address] [address] PCP - GeneralFamily Medicine07/24/22 Danny Schuler MD [address] [address] PCP - Ziggy Richard06/16/20documented as of this encounter
--- OUTSIDE RECORDS SUMMARY | 2025-02-06 09:01 | XMS_ITS | Encounter Summary ---
Author Organization [facility] Address [address] [place] [address] Care Team Providers Care Supervisor Customer Complaint Service Name Role Phone Danny Payne MD Primary Care Provider [phone] Danny Payne MD Unavailable [phone] Encounter Details DateTypeDepartmentCare Team (Latest Contact Info)Linkpibggaa16/19/2025Clinisync Result Encounter [facility] External Department Unsolicited Sintia Thomas, DO [address] [facility] [place] [address] Social History Tobacco UseTypesPacks/DayYears UsedDateSmoking Tobacco: Some [...] relatives?Once a week12/11/2022How often do you attend baptist or evangelical services?More than 4 times per year12/11/2022o you belong to any clubs or organizations such as baptist groups, unions, fraJibestream or athletic groups, or school groups?No12/11/2022How often [...] care, and heating?Somewhat hard 12/11/2022[facility] [place] of Occupational Health - Occupational Stress QuestionnaireAnswerDate RecordedDo you feel stress - tense, restless, nervous, or anxious, or unable to sleep at night because yourmind is troubled all the time - these days?Only a wjuorl6012/11/2022Exercise Vital SignAnswerDate Recorded On average, how many [...] degree you have received?11th grade12/10/2022Estimated Date of VoxlnyuyTiahfjueFjb87/06/2025Based on last menstrual period of 05/16/2024Sex and Gender InformationValueDate RecordedSex Assigned at ArkemOovbrd24/25/2023 10:10 AM EDTLegal FudOfslbd70/15/2023 6:51 PM EDTGender FgordhliFjueqs78/25/2023 10:10 AM EDTSexual OrientationNot on filedocumented as of this encounter Plan of Treatment DateTypeDepartmentCare Team (Latest Contact Info)Ycqpiiqqpel75/25/2025 1:20 PM ESTRoutine [facility] [address] [place] [phone] Pretty Chaidez PA [address] [place] [address] documented as of this encounter Procedures Procedure NamePriorityDate/TimeAssociated DiagnosisCommentsUS OB BPP W NON-JJAYMA2502/03/2025 11:41 PM EST documented in this encounter Results * US OB BPP W NON-STRESS (02/03/2025 11:41 PM EST)Anatomical Region LateralityModalityOtherSpecimen (Source)Anatomical Location / Laterality Collection Method / VolumeCollection TimeReceived Time02/03/2025 11:41 PM EST Narrative 02/03/2025 11:43 PM EST [facility] ?[address] ? [place] [address] ? Ultrasound Report ? Signed ? Patient: RAKEL,ALETA N ?MR#: [id number] ?? : 2000 ?Acct:[id number] ?? Age/Sex: 24 / F ?ADM Date: 02/03/25 ?? Loc: US ? Attending Dr: Sintia Thomas D.O. ? Ordering Physician: Sintia Thomas D.O. ?? Date of Service: 02/03/25 ?? Procedure(s): US OB BPP w non-stress ?? Accession Number(s): [id number] ? cc: Sintia Thomas D.O.; DANNY PAYNE ? [facility] ? [address] ? [place] [address] ? Patient Name: ?? ALETA N RAKEL ? MRN: [facility]:[id number] ? date: 2000 ?Sex: F ?? Assigned Patient Location: ?? Current Patient Location: ? Accession/Order Number: [id number] ?? Exam Date: 02/03/2025 ??14:59 ?Report Date: 02/03/2025 ??23:41 ? At the request of: ?? SINTIA ??WILLIAM ??DO ? Procedure: ??US OB BPP w non-stress ? Ultrasound biophysical profile ? HISTORY: Gabby's disease ? Adequate breathing movement, gross body movement, tone and ?? amniotic fluid volume for total score of 8 out of 8. ??The amniotic fluid index ?? is 13.1cm within normal limits. ??The heart rate 152 bpm. ? US/US OB BPP w non-stress ?? IMPRESSION: Adequate ultrasound biophysical profile ? Impression dictated by: Loi Ellington M.D. ??02/03/2025 11:41 PM ? Dictation Location: RADIO-PC-20 ? Electronically authenticated by: [id number] ??Y ?? Date: 02/03/2025 ??23:41 ? Dictated By: ?Loi Ellington D.O. ? Signed By: ?02/03/ 2343 ? DD/ 2341 ? TD/TT: ? Varsity Baseball Coach: Procedure Note Radiology, Radiologist, MD - 02/03/2025 [place] [address] Ultrasound Report Signed Patient: ALETA CASTRO NMR#: [id number] : 2000Acct:[id number] Age/Sex: 24 / FADM Date: 02/03/25 Loc: US Attending Dr: Sintia Thomas D.O. Ordering Physician: Sintia Thomas D.O. Date of Service: 02/03/25 Procedure(s): US OB BPP w non-stress Accession Number(s): [id number] cc: Sintia Thomas D.O.; DANNY PAYNE The [place] [id number] Patient Name: ALETA CASTRO MRN: [id number] date: 2000 Sex: F Assigned Patient Location: US Current Patient Location: Accession/Order Number: [id number] Exam Date: 02/03/2025 14:59 Report Date: 02/03/2025 23:41 At the request of: SINTIA THOMAS DO Procedure: US OB BPP w non-stress Ultrasound biophysical profile HISTORY: Gabby's disease Adequate breathing movement, gross body movement, tone and amniotic fluid volume for total score of 8 out of 8. The amniotic fluidindex is 13.1cm within normal limits. The heart rate 152 bpm. US/US OB BPP w non-stress IMPRESSION: Adequate ultrasound biophysical profile Impression dictated by: Loi Ellington M.D. 02/03/2025 11:41 PM Dictation Location: [place] [address] Electronically authenticated by: [id number] Y Date: 3:41 Dictated By: Loi Ellington D.O. Signed By:02/03/252342 DD/ 40 TD/TT: Varsity Baseball Coach: Authorizing ProviderResult TypeResult StatusCorey William DOCLINISYNC IMAGINGFinal Result documented in this encounter Visit Diagnoses Not on filedocumented in this encounter Care Teams Team MemberRelationshipSpecialtyStart DateEnd Date Danny Payne MD [address] [place] [address] PCP - GeneralFamily Medicine07/24/22 Danny Payne MD [address] [place] [address] PCP - [facility]06/16/20documented as of this encounter
--- OUTSIDE RECORDS SUMMARY | 2025-02-06 09:01 | XMS_ITS | Encounter Summary ---
Author Organization [facility] Address [address] [place] [address] Care Team Providers Care Signaling Project Engineer Name Role Phone Danny Schuler MD Primary Care Provider [phone] Danny Schuler MD Unavailable [phone] Encounter Details DateTypeDepartmentCare Team (Latest Contact Info)Jjtgqtgznml32/08/2025Clinisync Result Encounter [facility] External Department Unsolicited Doc Thomas, DO [address] [facility] [place] [address] Social History Tobacco UseTypesPacks/DayYears UsedDateSmoking Tobacco: Some [...] week12/11/2022How often do you attend denominational or christian services?More than 4 times per year12/11/2022o you belong to any clubs or organizations such as denominational groups, unions, fraEndPlay or athletic groups, or school groups?No12/11/2022How often [...] housing, medical care, and heating?Somewhat hard 12/11/2022[facility] [place] of Occup[facility] Health - Occupational Stress QuestionnaireAnswerDate RecordedDo you feel stress - tense, restless, nervous, or anxious, or unable to sleep at night because yourmind is troubled all the time - these days?Only a nrsjcw8812/11/2022Exercise Vital SignAnswerDate Recorded On average, how many [...] degree you have received?11th grade12/10/2022Estimated Date of EirdssdzTydqjhefMnr63/06/2025Based on last menstrual period of 05/16/2024Sex and Gender InformationValueDate RecordedSex Assigned at VnzulSjjasf36/25/2023 10:10 AM EDTLegal KhfNtfapf57/15/2023 6:51 PM EDTGender GrdzcgbsJgbisl52/25/2023 10:10 AM EDTSexual OrientationNot on filedocumented as of this encounter Plan of Treatment DateTypeDepartmentCare Team (Latest Contact Info)Hhsqtelscwk39/25/2025 1:20 PM ESTRoutine [facility] [address] [facility] [place] [phone] Pretty Chaidez PA [address] [place], [place] [phone] documented as of this encounter Procedures Procedure NamePriorityDate/TimeAssociated DiagnosisCommentsALL THYROID STIM RPKPZBWGojroht19/08/2025 8:09 AM EST documented in this encounter [...] MemberRelationshipSpecialtyStart DateEnd Date Danny Schuler MD [address] [address] PCP - GeneralFamily Medicine07/24/22 Danny Schuler MD [address] [facility] [address] [place] [address] PCP - Ziggy Richard06/16/20documented as of this encounter
--- OUTSIDE RECORDS SUMMARY | 2025-02-06 09:01 | XMS_ITS | Clinical Summary ---
Author Organization [facility] Address [address] [place] [address] Care Team Providers Care Financial Services Director Name Role Phone Danny Payne MD Primary Care Provider Danyn Payne MD Unavailable [phone] Allergies Active AllergyReactionsCriticalityNoted DuafJsrpgbheQflwfifbafdbRhvcu92/05/2021 Other Reaction(s): hives UxvzqDqjlOnd71/05/2021 Other Reaction(s): Unknown Khjimrcvn11/25/2023 Other Reaction(s): body numbness Medications MedicationSigDispense QuantityRefillsLast FilledStart DateEnd DateStatus ondansetron (Zofran) 4 MG tablet Indications:Nausea and vomiting in ([facility])Take 1 tablet (4 mg) by mouth every 6 (six) hours if needed for nausea or vomiting for up to 30 doses Take 1 tablet by mouth every 6 hours as needed for nausea. 30 tablet 5Active Active Problems ProblemNoted DateDiagnosed DateAbnormal bleeding in menstrual cycle02/19/2024 Status post arthroscopic reconstruction of anterior cruciate ligament of left knee using quadricepstendon rblsgqpen05/23/2024cute pain of left knee04/22/2023 Chronic vzmyxwt9212/10/2022igarette gqopjo5712/10/2022yst of ovary12/10/2022 Gabby's rhkjimx4912/10/2022Hypotension determined by zlgufkecqub17/25/2023 Juvenile osteochondrosis of tibial xwaoponlgj79/25/2023Non morbid obesity due to excess bmqlavqw05/25/2023ostural orthostatic tachycardia syndrome (POTS) 12/10/2022Subclinical pxcihfpaabqutp12/25/2023Estimated Date of Delivery VxzflkauZhu68/06/2025Based on last menstrual period of 05/16/2024 Resolved Problems ProblemNoted DateDiagnosed DateResolved DateOverweight (BMI 25.0-29.9)12/10/2022 02/19/2024 Encounters DateTypeDepartmentCare PbktDborhpfxphk68/19/2025 1:30 [place] [address] Sintia Thomas, DO Third trimester ([facility]); 37 weeks gestation of ([facility])02/03/2025linisync Result Encounter [facility]OM[facility] External Department Unsolicited Sintia Thomas, DO 02/03/2025amboo flowsheet [facility] [place] [address] Sintia Thomas, DO 01/27/2025 1:40 PM ESTRoutine [facility] [place] [address] Sintia Thomas, DO 36 weeks gestation of ([facility]); Third trimester ([facility]); Gabby's disease; Low hemoglobin; Heart palpitations; Pelvic pressure in ([facility])01/27/2025linisync Result Encounter NOMS External Department Unsolicited Sintia Thomas, DO 01/27/2025amboo flowsheet [facility] [address] [place] [address] Sintia Thomas, DO 01/23/2025linisync Result Encounter NOMS External Department Unsolicited Sintia Thomas, DO 01/23/2025linisync Result Encounter NOMS External Department Unsolicited Sintia Thomas, DO 01/22/2025Telephone [facility] [place] [address] Sintia Thomas, DO 01/20/2025 1:50 PM ESTRoutine [facility] [address] [place] [address] Pretty Chaidez PA Third trimester ([facility]); 35 weeks gestation of ([facility])5Clinisync Result Encounter NOMS External Department Unsolicited Sintia Thomas, DO 01/20/2025amboo flowsheet [facility] [address] [place] [address] Pretty Chaidez PA 01/11/2025linisync Result Encounter NOMS External Department Unsolicited Sintia Thomas, DO 01/05/2025 1:00 PM EDTRoutine [facility] [address] [place] [address] Sintia Thomas, DO Third trimester ([facility]); 33 weeks gestation of ([facility])01/05/2025amboo flowsheet [facility] [place] [facility] [address] [place] [address] Sintia Thomas, DO 5Clinisync Result Encounter NOMS External Department Unsolicited Provider, Generic External Data 12/26/2024linisync Result Encounter NOMS External Department Unsolicited Provider, Generic External Data 12/26/2024linisync Result Encounter NOMS External Department Unsolicited Provider, Generic External Data 12/26/2024linisync Result Encounter NOMS External Department Unsolicited Sintia Thomas, DO 12/23/2024 2:00 PM EDTRoutine [facility] [place] [facility] [address] [place] [phone] Jessica Steen, GEORG[place] Third trimester ([facility]); 31 weeks gestation of ([facility])12/23/2024Refill [facility] [place] [facility] [address] [place] [address] Azalea Schmitz MA Nausea and vomiting in ([facility])12/23/2024amboo flowsheet [facility] [place] [facility] [address] [place] [address] Jessica Steen NP 12/09/2024 2:00 PM EDTRoutine [facility] [place] [facility] [address] [place] [phone] Sintia Thomas, Third trimester ([facility]); 29 weeks gestation of ([facility]); Yeast cnfekvvmp19/24/2025amboo flowsheet [facility] [address] [place] [address] Sintia Thomas, 12/01/2024Telephone [facility] [place] [facility] [address] [place] [address] [place] [phone] Azalea Schmitz MA 5Abstract [facility] [place] [facility] [address] [place] [address] [place] [phone] Sintia Thomas, 11/25/2024 1:50 PM EDTRoutine [facility] [address] [place] [address] [place] [address] Jessica Steen NP Second trimester ([facility]); 27 weeks gestation of ([facility]); Gabby's wobmriu3811/25/2024amboo flowsheet [facility] [address] [place] [address] Jessica Steen NP 11/24/2024linisync Result Encounter NOMS External Department Unsolicited Provider, Generic External Data 11/19/2024Telephone [facility] [address] [place] [address] Janet Narayanan MA 5Clinisync Result Encounter NOMS External Department Unsolicited Provider, Generic External Data 11/06/2024Orders Only [facility] [facility] [address] [place] [address] Coretta Cardenas LPN from Last 3 Months Immunizations ImmunizationAdministration DatesNext DueDTaP / HiB / IPV1999,1999 DTaP / Hib03/26/2000Hep A, ped/adol, 2 dose03/31/2012,08/31/2011Hep B, Adolescent or Vocnnhsnc71/27/2001,1999,1999Hep B, adult11/12/2016Hib (HbOC)09/11/2000Hib / Hep B009/11/2000IPV09/11/2000MMR09/11/2000Meningococcal EIW3B2911/12/2016Pneumococcal Conjugate PCV 7003/26/20008327Yqsy75/15/2012Varicella 08/31/2011 Family History Medical HistoryRelationNameCommentsNo Known ProblemsBrotherHyperlipidemia [...] relatives?Once a week12/11/2022How often do you attend yazidi or orthodox services?More than 4 times per year12/11/2022o you belong to any clubs or organizations such as yazidi groups, unions, fraRemicalm or athletic carmen ups, or school groups?No12/11/2022How often do you attend meetings of the clubs or organizations you belong to?Never12/11/2022re you , , , , never , or living with a partner?Nbyhfit4312/11/2022 AUDIT-CAnswerDate RecordedQ1: How often do you have [...] food, housing, medical care, and heating?Somewhat hard12/11/2022 [facility] - Occupational Stress Questionnaire AnswerDate RecordedDo you feel stress - tense, restless, nervous, or anxious, or unable to sleep at night because yourmind is troubled all the time - these days? Only a rbyrum2912/11/2022Exercise Vital SignAnswerDate RecordedOn average, how many days [...] and Gender Information ValueDate RecordedSex Assigned at JuswwQznnly40/25/2023 10:10 AM EDTLegal Sex Ydxlci1805/30/2022 6:51 PM EDTGender IukdvnxhAshqxt92/25/2023 10:10 AM EDTSexual OrientationNot on file Last Filed Vital Signs Vital SignReadingTime TakenCommentsBlood Lqvtgxsk916/6811/ 1:45 PM EST Rwadg2922 3:26 PM CIXBimfpztsqig12.4 ??C (97.5 ??F)05/03/2023 11:22 AM ESTRespiratory Rate--Oxygen Qanozwjxtb46%02/19/2024 3:26 PM ESTInhaled Oxygen Concentration--Tanrkv74.2 kg (179 lb)02/03/2025 1:45 PM AXBKxuhun810.6 cm (5' 4 )02/26/2024 3:41 PM ESTBody Mass Index30.7302/26/2024 3:41 PM EST Plan of Treatment DateTypeDepartmentCare Team (Latest Contact Info)Uoqvbseqjgh51/25/2025 1:20 PM ESTRoutine [facility] [address] [place] [address] Pretty Chaidez PA [address] [place] [address] Health MaintenanceDue DateLast DoneCommentsPneumococcal Vaccine: Pediatrics (0 to 5 Years) and At-Risk Patients (6 to 64 Years) (1 of 2 - PCV)06/09/2018 03/26/2000COVID-19 Vaccine (1 - season)2024Influenza Vaccine (#1) 2025Postponed from 11/16/2024 (Patient Refused) Procedures Procedure NamePriorityDate/TimeAssociated DiagnosisCommentsUS OB BPP W NON-NNLGMO6102/03/2025 11:41 PM EST POCT URINALYSIS RGDYFKRDKxbrasu15/19/2025 1:45 PM EST 37 weeks gestation of ([facility]) POCT URINALYSIS IWVPKBQABuqftdi16/12/2025 2:14 PM EST 36 weeks gestation of ([facility]) Third trimester ([facility]) STREP GP B CULTURE+OVUTTpacjls37/12/2025 1:57 PM EST US OB BPP W NON-RMOMMM9101/23/2025 9:25 AM EST ALL THYROID STIM CBGEMOGMbpdbjt39/08/2025 8:09 AM EST US OB BPP W NON-XFKOZJ9101/20/2025 5:10 PM EST POCT URINALYSIS SQUHQGXERkiynxb18/05/2025 2:07 PM EST 35 weeks gestation of ([facility]) US OB BPP W NON-QQLXPN1901/11/2025 9:15 PM EDT POCT URINALYSIS FNUNYOWVYmyffna15/21/2025 1:04 PM EDT 33 weeks gestation of ([facility]) US OB BPP W NON-XQLPAP0501/02/2025 3:02 PM EDT US OB ZQMPRS3512/26/2024 11:31 AM EDT US OB BPP W NON-PQMHAB5012/26/2024 11:19 AM EDT ALL THYROID STIM HODGJOTMghtdkc02/11/2025 8:13 AM EDT POCT URINALYSIS HJNZSCXQRrywcwn33/08/2025 2:01 PM EDT 31 weeks gestation of ([facility]) POCT URINALYSIS TKIYAWMEDjgcvvu73/24/2025 2:14 PM EDT Third trimester ([facility]) POCT URINALYSIS QWEOTNHXKgnrasu85/10/2025 3:33 PM EDT Second trimester ([facility]) CA ECHO DOPPLER GUWLUQLZ00/09/2025 4:39 PM EDT ECG 12-LEAD11/12/2024 12:06 PM EDT from Last 3 Months Results * US OB BPP W NON-STRESS (02/03/2025 11:41 PM EST) Only the most recent of6 resultswithin the time period is included. Anatomical RegionLateralityModalityOtherSpecimen (Source)Anatomical Location / LateralityCollection Method / VolumeCollection TimeReceived Time02/03/2025 11:41 PM EST Narrative 02/03/2025 11:43 PM EST [facility] ?[address] ? [place] [address] ? Ultrasound Report ? Signed ? Patient: ALETA CASTRO ?MR#: [id number] ?? : 2000 ?Acct:[id number] ?? Age/Sex: 24 / F ?ADM Date: 02/03/25 ?? Loc: US ? Attending Dr: Sintia Thomas D.O. ? Ordering Physician: Sintia Thomas D.O. ?? Date of Service: 02/03/25 ?? Procedure(s): US OB BPP w non-stress ?? Accession Number(s): [id number] ? cc: Sintia Thomas D.O.; ADNNY PAYNE ? [facility] ? [address] ? [place] [address] ? Patient Name: ?? ALETA Kristina CASTRO ? MRN: [facility]:[id number] ? date: 2000 ?Sex: F ?? Assigned Patient Location: ?? Current Patient Location: ? Accession/Order Number: [id number] ?? Exam Date: 02/03/2025 ??14:59 ?Report Date: [...] Dictation Location: RADIO-PC-20 ? Electronically authenticated by: [id number] ??Y ?? Date: 02/03/2025 ??23:41 ? Dictated By: ?Loi Ellington D.O. ? Signed By: ?02/03/ 2343 ? DD/ 2341 ? TD/TT: ? [employer]: Procedure Note Radiology, Radiologist, - 02/03/2025 [place] [address] Ultrasound Report Signed Patient: ALETA CASTRO NMR#: [id number] : 2000Acct:[id number] Age/Sex: 24 / FADM Date: 02/03/25 Loc: US Attending Dr: Sintia Thomas D.O. Ordering Physician: Sintia Thomas D.O. Date of Service: 02/03/25 Procedure(s): US OB BPP w non-stress Accession Number(s): [id number] cc: Sintia Thomas D.O.; DANNY PAYNE The [place] [address] Patient Name: ALETA CASTRO MRN: [id number] date: 2000 Sex: F Assigned Patient Location: US Current Patient Location: Accession/Order Number: [id number] Exam Date: 02/03/2025 14:59 Report Date: 02/03/2025 [...] Ellington M.D. 02/03/2025 11:41 PM Dictation Location: [place] [address] Electronically authenticated by: [id number] Y Date: 3:41 Dictated By: Loi Ellington D.O. Signed By:02/03/252342 DD/ 40 TD/TT: [employer]: Authorizing ProviderResult TypeResult StatusCorey William DOCLINISYNC IMAGINGFinal Result * (ABNORMAL) POCT urinalysis dipstick manually resulted (02/03/2025 1:45 PM EST) Only the most recent of7 resultswithin the time period is included. ComponentValueRef RangeTest MethodAnalysis TimePerformed AtPathologist Signature Color, UAYellowClarity, UAClearGlucose, UATraceNegative - 2000(110) ++++ mg/dL Bilirubin, UANegativeNegative - 4(70) +++ mg/dLKetones, UANegativeNegative - 160(16) ++++ mg/dLSpec Grav, UA1.0101 - 1.03Blood, UANegativeNegative - 50 Randall/mcLpH, UA6.55 - 9Protein, UATraceNegative - 2000(20) ++++ mg/dLUrobilinogen, UA1.00.2 - 12 mg/dLLeukocytes, UA1+Negative - 500+++ Rick/mcLNitrite, UANegative Negative - PositiveSpecimen (Source)Anatomical Location / LateralityCollection Method / VolumeCollection TimeReceived QxqcZzfgz60/19/2025 1:45 PM EST Narrative Authorizing ProviderResult TypeResult StatusCorey William DOPOINT OF CARE TEST ENTER/EDIT ORDERABLESFinal Result * STREP GP B CULTURE+RFLX (01/27/2025 1:57 [...] is noted.TBHSTREP GP B CULTURE+RFLX Performed at: [facility]+[id number] [place], [place] [id number] GP B CULTURE+RFLXLab Director: Boris Quigley PhD, Phone: [phone] (Source)Anatomical Location / Laterality Collection Method / VolumeCollection TimeReceived Time01/27/2025 1:57 PM EST 01/27/2025 8:34 PM EST Narrative [facility] - 02/01/2025 3:08 PM EST Authorizing ProviderResult TypeResult StatusCorey William DOLAB BLOOD ORDERABLES Final ResultPerforming OrganizationAddressCity/State/ZIP CodePhone Number [facility] * (ABNORMAL) ALL THYROID STIM HORMONE (01/23/2025 8:09 AM EST) Only the most recent of2 resultswithin the time period is included. ComponentValueRef RangeTest MethodAnalysis TimePerformed AtPathologist Signature THYROID STIMULATING HORMONE0.159(L)0.358 - 3.740 uIU/mLTBHSpecimen (Source) Anatomical Location / LateralityCollection Method / VolumeCollection Time Received Time01/23/2025 8:09 AM EST01/23/2025 8:10 AM EST Narrative [facility] - 01/23/2025 9:02 AM EST Authorizing ProviderResult TypeResult StatusCorey William DOCLINISYNCFinal Result Performing OrganizationAddressCity/State/ZIP CodePhone Number [facility] * US OB GROWTH (12/26/2024 11:31 AM EDT)Anatomical RegionLateralityModalityOther Specimen (Source)Anatomical Location / LateralityCollection Method / Volume Collection TimeReceived Time12/26/2024 11:31 AM EDT Narrative 12/26/2024 11:33 AM EDT [facility] ?[address] ? [place] [address] ? Ultrasound Report ? Signed ? Patient: RAKEL,ALETA N ?MR#: [id number] ?? : 2000 ?Acct:[id number] ?? Age/Sex: 24 / F ?ADM Date: 12/26/24 ?? Loc: US ? Attending Dr: Sintia Thomas D.O. ? Ordering Physician: Sintia Thomas D.O. ?? Date of Service: 12/26/24 ?? Procedure(s): US OB growth ?? Accession Number(s): [id number] ? cc: Sintia Thomas D.O.; DANNY PAYNE ? [facility] ? [address] ? [place] [address] ? Patient Name: ?? ALETA CASTRO ? MRN: [facility]:[id number] ? date: 2000 ?Sex: F ?? Assigned Patient Location: US ?? Current Patient Location: ? Accession/Order Number: [id number] ?? Exam Date: 12/26/2024 ??09:00 ?Report Date: [...] 52 bpm. ? motion documented by the air crew member.. ? Estimated weight 2093 g 71.4%. ? [...] M.D. ??12/26/2024 11:31 AM ? Dictation Location: [facility] ? Electronically authenticated by: [id number] ??Y ?? Date: 12/26/2024 ??11:31 ? Dictated By: ?Deshaun Aguilar M.D. ? Signed By: ?12/26/24 1133 ? DD/ 1131 ? TD/TT: ? [employer]: Procedure Note Radiology, Radiologist, MD - 12/26/2024 [place] [address] Ultrasound Report Signed Patient: ALETA CASTRO NMR#: [id number] : 2000Acct:[id number] Age/Sex: 24 / FADM Date: 12/26/24 Loc: US Attending Dr: Sintia Thomas D.O. Ordering Physician: Sintia Thomas D.O. Date of Service: 12/26/24 Procedure(s): US OB growth Accession Number(s): [id number] cc: Sintia Thomas D.O.; DANNY PAYNE The [address] [address] Patient Name: ALETA CASTRO MRN: [id number] date: 2000 Sex: F Assigned Patient Location: US Current Patient Location: Accession/Order Number: [id number] Exam Date: 12/26/2024 09:00 Report Date: 12/26/2024 11:31 At the request of: SINTIA THOMAS DO Procedure: US OB growth Obstetric ultrasound for growth INDICATION: Gabby's disease FINDINGS: Single live anterior cephalic presentationlongitudinal lie. Amniotic fluid index 12.4 cm between the gestational age fifth wcj59qv percentile. Largest pocket of fluid 5.1 cm. heart rate 1 52 bpm. motion documented by the air crew member.. Estimated weight 2093 g 71.4%. Gestation age 32 weeks and 0 days. Biparietal diameter 7.93 m. Head circumference 30.7 cm. Otherwise the 10.6 cm. Abdominal circumference 28.9 cm. Femur length 6.4 cm. US/US OB growth IMPRESSION: Single live intrauterine of approximately 30 weeks Impression dictated by: Deshaun Aguilar M.D. 12/26/2024 11:31 AM Dictation Location: [facility] Electronically authenticated by: [id number] Y Date: 1:31 Dictated By: Deshaun Aguilar M.D. Signed By:12/26/24 1133 DD/ 1131 TD/TT: [employer]: Authorizing ProviderResult TypeResult StatusGeneric External Data Provider CLINISYNC IMAGINGFinal Result * CA ECHO DOPPLER COMPLETE (11/24/2024 4:39 PM EDT)Anatomical RegionLaterality ModalityOtherSpecimen (Source)Anatomical Location / LateralityCollection Method / VolumeCollection TimeReceived Time11/24/2024 4:39 PM EDT Narrative 11/24/2024 4:40 PM EDT [facility] ?[address] ? [place] [address] ? Cardiology Report ? Signed ? Patient: ALETA CASTRO ?MR#: [id number] ?? : 2000 ?Acct:[id number] ?? Age/Sex: 24 / F ?ADM Date: 11/12/24 ?? Loc: CARD ? Attending Dr: Jessica Steen ? Ordering Physician: Jessica Steen ?? Date of Service: 11/12/24 ?? Procedure(s): CA echo doppler complete ?? Accession Number(s): [id number] ? cc: Jessica Steen; DANNY PAYNE ? Patient Name: ? ALETA CASTRO ? MR#: [id number] ? : 2000 ? Exam Date: 11/12/2024 [...] 1640 ? DD/ 1639 ? TD/TT: ? [employer]: Procedure Note Radiology, Radiologist, - 11/24/2024 [place] [address] Cardiology Report Signed Patient: ALETA CASTRO NMR#: [id number] : 2000Acct:[id number] Age/Sex: 24 FADM Date: 11/12/24 Loc: CARD Attending Dr: Jessica Steen Ordering Physician: Jessica Steen Date of Service: 11/12/24 Procedure(s): CA echo doppler complete Accession Number(s): [id number] cc: Jessica Steen; DANNY PAYNE Patient Name: ALETA CASTRO MR#: [id number] : 2000 Exam Date: 11/12/2024 Ordering Doctor: JESSICA STEEN [facility] ECHOCARDIOGRAM REPORT PROCEDURE: CA ECHO DOPPLER [...] M.D. Signed By:11/24/24 1640 DD/ 1639 TD/TT: [employer]: Authorizing ProviderResult TypeResult StatusGeneric External Data Provider CLINISYNC IMAGINGFinal Result * ECG 12-LEAD (11/12/2024 12:06 PM EDT)Anatomical RegionLateralityModalityOther Specimen (Source)Anatomical Location / LateralityCollection Method / Volume Collection TimeReceived Time11/12/2024 12:06 PM EDT Narrative 11/13/2024 1:34 PM EDT [facility] ?[address] ? [place] [address] ? Electrocardiograph Report ? Signed ? Patient: RAKEL,SUMMER N ?MR#: [id number] ?? : 2000 ?Acct:[id number] ?? Age/Sex: 24 / F ?ADM Date: 11/12/24 ?? Loc: CARD ? Attending Dr: Jessica Steen ? Ordering Physician: Jessica Steen ?? Date of Service: 11/12/24 ?? Procedure(s): ECG 12 lead ?? Accession Number(s): [id number] ? cc: ?[facility] ? Test Date: ?2024-11-12 ?? Pat Name: ? SUMMER RAKEL ?Department: ? Room: ? - ?? Gender: ? Female ? Associate Professor Of Sociology: ? : ?2000 ? Requested By: JESSICA YOVANY ?? Order Number: [id number] ?Reading MD: ?? Samar Samantha ? Measurements ?? Intervals ?[place] ? Rate: ? 79 ? P: ?42 ?? CA: ? 158 ?QRS: ?81 ?? QRSD: ? 90 ? T: ?41 ?? QT: ? 353 ? QTc: ?405 ? Interpretive Statements ?? SINUS RHYTHM ?? Normal EKG ?? No previous ECG available for comparison ?? Electronically Signed On 11-13-2024 13:34:21 EDT by Bibi Singh ? Dictated By: ?Bibi Singh M.D. ? Signed By: ?08/29/25 1334 ?11/13/24 1334 ? DD/ 1206 ? TD/TT: ? [employer]: Procedure Note Radiology, Radiologist, MD - 11/13/2024 [place] [address] Electrocardiograph Report Signed Patient: ALETA CASTRO#: [id number] : 2000Acct:[id number] Age/Sex: 24 / FADM Date: 11/12/24 Loc: CARD Attending Dr: Jessica Steen Ordering Physician: Jessica Steen Date of Service: 11/12/24 Procedure(s): ECG 12 lead Accession Number(s): [id number] cc: [facility] Test Date: 2024-11-12 Pat Name: ALETA CASTRO Department: Room: - Gender: Female Associate Professor Of Sociology: : 2000 Requested By: JESSICA STEEN Order Number: [id number] Reading MD: Bibi Singh Measurements Intervals [place] Rate: 79 P: 42 CA: 158 QRS: 81 QRSD: 90 T: 41 QT: 353 QTc: 405 Interpretive Statements SINUS RHYTHM Normal EKG No previous ECG available for comparison Electronically Signed On 11-13-2024 13:34:21 EDT by Bibi Singh Dictated By: Bibi Singh M.D. Signed By:11/13/24 1334 11/13/24 1334 DD/ 1206 TD/TT: [employer]: Authorizing ProviderResult TypeResult StatusGeneric External Data Provider CLINISYNC IMAGINGFinal Result from Last 3 Months Insurance Care Teams Team MemberRelationshipSpecialtyStart DateEnd Date Danny Payne MD [address] [address] PCP - GeneralFamily Medicine07/24/22 Danny Payne MD [address] [address] PCP - [facility]06/16/20
--- OUTSIDE RECORDS SUMMARY | 2025-02-06 09:01 | XMS_ITS | Encounter Summary ---
Author Organization [facility] Address [address] [place] [address] Care Team Providers Care Lime Supervisor Name Role Phone Danny Schuler MD Primary Care Provider [phone] Danny Schuler MD Unavailable [phone] Encounter Details DateTypeDepartmentCare Team (Latest Contact Info)Lpnwxfqizhw52/12/2025Bamboo flowsheet [facility] [address] [place] [place] [id number] Doc Thomas DO [address] Brandyn Willis, [place] [address] Social History Tobacco UseTypesPacks/DayYears UsedDateSmoking Tobacco: Some [...] relatives?Once a week12/11/2022How often do you attend roman catholic or alevism services?More than 4 times per year12/11/2022o you belong to any clubs or organizations such as roman catholic groups, unions, fraternal or athletic groups, or [...] housing, medical care, and heating?Somewhat hard 12/11/2022[facility] [place] [facility] - Occupational Stress QuestionnaireAnswerDate RecordedDo you feel stress - tense, restless, nervous, or anxious, or unable to sleep at night because yourmind is troubled all the time - these days?Only a dchgqi3212/11/2022Exercise Vital SignAnswerDate Recorded On average, how many [...] degree you have received?11th grade12/10/2022Estimated Date of YyvyghoeMjfujjhdAqt69/06/2025Based on last menstrual period of 05/16/2024Sex and Gender InformationValueDate RecordedSex Assigned at HpzdgDwznft79/25/2023 10:10 AM EDTLegal MmfWsvhxx80/15/2023 6:51 PM EDTGender VlogoewhXpktba97/25/2023 10:10 AM EDTSexual OrientationNot on filedocumented as of this encounter Plan of Treatment DateTypeDepartmentCare Team (Latest Contact Info)Tesugqazxkq81/25/2025 1:20 PM ESTRoutine [facility] [address] [place] [phone] Pretty Chaidez PA [address] [address] documented as of this encounter Visit Diagnoses Not on filedocumented in this encounter Care Teams Team MemberRelationshipSpecialtyStart DateEnd Date Danny Schuler MD [address] [address] PCP - GeneralFamily Medicine07/24/22 Danny Schuler MD [address] [address] PCP - [place] [employer]06/16/20documented as of this encounter
--- OUTSIDE RECORDS SUMMARY | 2025-02-06 09:02 | XMS_ITS | CCD ---
Author Organization [facility] CliniSywi Care Team Providers Care Network Relations Consultant Name Role Phone BECERRIL, DAVID P Unavailable [...] Primary Care Provider Rosalie Payne MD Unavailable [phone] Attending Unavailable WILLIAMDOC YOUNGBLOOD Attending Unavailable PRETTY CHAIDEZ Attending Unavailable DOC THOMAS Attending Unavailable ROSALIE PAYNE Attending Unavailable MYRON MARROQUIN Attending Unavailable PRETTY CHAIDEZ Attending Unavailable LUNA STEEN Attending Unavailable DOC THOMAS Attending Unavailable LUNA STEEN Attending Unavailable DOC THOMAS Attending Unavailable PRETTY CHAIDEZ Attending Unavailable Allergies Allergy ClassificationReported Allergen(s)Allergy TypeDate of OnsetReaction(s) FacilityLatex (1 source)LatexSubstance Bpactwo46-09-7023MimaKabvc HealthMacrolides (antibiotic) (1 source)AzithromycinDrug Fjnczns73-15-8597RdzzuSgmgy Health (20 sources)Azithromycin; Translations: [azithromycin]Drug Wbvkzer74-22-2976 [facility] (11 sources)Latex; Translations: [Latex]Propensity to adverse reactions to drug 82-90-7598MbbpHjjxx Health (1 source)AzithromycinDrug Jcftilw19-46-1260Yzk [facility] Repository (1 source)natural latex rubberDrug allergy (disorder)[facility] (2 sources)Banana Extract; Translations: [Banana]Drug AllergyVomiting (disorder) [facility] (20 sources)Midodrine; Translations: [midodrine]Drug Pqqzeib06-52-2783[facility]omohbtrA[facility] (20 sources)LatexAllergy to mmhoridzw19-86-2659SbxaRLAV Healthcare (1 source)AzithromycinDrug Hcwzrgm94-79-5066TmmtscylpOhio[facility] (1 source)LatexDrug allergy (disorder)99-33-7652JjhslrdpuOhiohealth Doctors Hospital Repository Medications Current Medications MedicationDrug Class(es)DatesSig (Normalized)Sig (Original)[id number] 200 actuat albuterol 0.09 mg/actuat metered dose inhaler (2 sources)beta2-Adrenergic AgonistStart: 71-04-9555ioui 2 puff(s) by inhalation four times daily as neededAlbuterol Sulfate HFA 108 (90 Base) MCG/ACT 2 puffs Inhalation 4 times a day prn Aug, ActiveStart: 17-42-6472satx 2 puff(s) by inhalation four times daily as neededAlbuterol Sulfate HFA 108 (90 Base) MCG/ACT 2 puffs Inhalation 4 times a day prn Aug, Not-Taking/PRN fluconazole 150 mg oral tablet (2 sources)Azole AntifungalStart: 12-09-2024 End: 56-35-4547mwtrfjgwxrw (Diflucan) 150 MG tablet Indications: Yeast infection Take 1 tablet (150 mg) by mouth 1(one) time for 1 dose Repeat in 7 days if symptoms persist. 2 tablet 12/09/2024 12/09/2024 Activefluticasone propionate 0.05 mg/actuat metered dose nasal spray (4 sources)CorticosteroidStart: 10-73-7405mmvylwldocj (Flonase) 50 MCG/ACT nasal sprayStart: 87-24-1840wvua 1 spray(s) nasal route once dailyFluticasone Propionate 50 MCG/ACT 1 spray in each nostril Nasally Once a day for 14 15 Mar, 2023 ActiveStart: 68-55-5190zody 2 spray(s) nasal route once daily as needed Fluticasone Propionate 50 MCG/ACT 2 sprays Nasally Once a day for 14 day(s) Aug, Not-Taking/PRNStart: 47-84-3659pmau 2 spray(s) nasal route once daily Fluticasone Propionate 50 MCG/ACT 2 sprays Nasally Once a day for 14 day(s) Aug, Activeibuprofen 600 mg oral tablet (20 sources)Nonsteroidal Anti-inflammatory DrugStart: 48-09-1445bxgl 1 tablet by mouth four times daily as needed for painibuprofen (ADVIL;MOTRIN) 600 MG tablet Take 1 tablet by mouth 4 times daily as needed for Pain 30 tablet 0 12/14/2020 Active End: 37-75-0294pyvkfwmru 200 MG tablet Take by mouth. 07/16/2024 Discontinued magnesium oxide 400 mg oral tablet (5 sources)Start: 07-16-2024 End: 95-50-0657rzrx 1 tablet by mouth once dailymagnesium oxide (Mag-Ox) 400 MG tablet Indications: Cluster headache, not intractable, unspecified chronicity pattern Take 1 tablet (400 mg) by mouth Daily 30 tablet 6 07/16/2024 08/15/2024 Activeondansetron 4 mg oral tablet (20 sources)Serotonin-3 Receptor AntagonistStart: 23-35-7246rkfw 1 tablet by mouth every six hours as needed for nausea and nausea, then take 1 tablet by mouthevery six hours as needed for nausea and nauseaondansetron (Zofran) 4 MG tablet Indications: Nausea and vomiting in ([facility]) Take 1 tablet (4 mg) by mouth every 6 (six) hours if needed for nausea or vomiting for up to 30 doses Take 1 tablet by mouth every 6 hours as needed for nausea. 30 tablet 12/23/2024 ActiveStart: 10-05-2024 End: 76-93-5704etof 1 tablet by mouth every six hours for nauseaondansetron ODT (Zofran-ODT) 4 MG disintegrating tablet Indications: Nausea and vomiting during ([facility]) Take 1 tablet (4 mg) by mouth every 6 (six) hours if needed for nausea or vomiting 30 tablet 3 10/05/2024 11/04/2024 ActiveStart: 08-26-2024 End: 50-95-9457esji 1 tablet by mouth every six hours for nauseaondansetron ODT (Zofran-ODT) 4 MG disintegrating tablet Indications: Nausea and vomiting during ([facility]) Take 1 tablet (4 mg) by mouth every 6 (six) hours if needed for nausea or vomiting 30 tablet 3 08/26/2024 09/30/2024 ActiveStart: 07-06-2024 End: 19-75-4413ykng 1 tablet by mouth every six hours for nauseaondansetron ODT (Zofran-ODT) 4 MG disintegrating tablet Indications: Nausea and vomiting during Take 1 tablet (4 mg) by mouth every 6 (six) hours if needed for nausea or vomiting 30 tablet 2 07/06/2024 08/05/2024 Activepenicillin v potassium 500 mg oral tablet (1 source)Start: 17-85-4228nqur 1 tablet by mouth every eight hoursPenicillin V Potassium 500 MG 1 tablet Orally tid for 10 day(s) 14 Apr, 2021 Active polysaccharide iron complex 391 mg oral capsule (5 sources)Start: 11-05-2024 End: 07-75-6446txvr 1 capsule by mouth once dailyiron polysaccharides (ProFe) 391.3 (180 Fe) MG capsule Indications: Low hemoglobin Take 1 capsule (391.3 mg) by mouth Daily 30 capsule 3 11/05/2024 12/05/2024 ActivetiZANidine 4 mg oral tablet (2 sources)Central alpha-2 Adrenergic AgonistStart: 54-00-4187jxtd 1 tablet by mouth every eight hours as needed for paintiZANidine (ZANAFLEX) 4 MG tablet Take 1 tablet by mouth every 8 hours as needed (pain and muscle tension/cramps) 10 tablet 0 12/14/2020 Active Completed/Discontinued Medications MedicationDrug Class(es)DatesSig (Normalized)Sig (Original)acetaminophen 325 mg oral tablet (1 source)Start: 09-19-2020 End: 95-52-1621rteubvcqjhsey (TYLENOL) tablet 650 mgCitalopram (7 sources)Serotonin Reuptake InhibitorCitalopram Hydrobromide Not-Taking/PRN take 1 tablet by mouth once dailycitalopram (CELEXA) 20 MG tablet Take 20 mg by mouth daily 0 ActiveCitalopram Hydrobromide Activeclotrimazole 10 mg oral lozenge (3 sources)Azole AntifungalStart: 66-98-9488Ryfylleputdw 10 MG 1 wenceslao Mouth/Throat Three times a day for 7 day(s) Apr, Not-Taking/PRN medroxyPROGESTERone (4 sources)ProgestinDepo-Provera Not-Taking/PRNDepo-Provera Activemetoclopramide 10 mg oral tablet (12 sources)Dopamine-2 Receptor AntagonistStart: 07-16-2024 End: 39-72-0129pnmbsudnfdbxto (Reglan) 10 MG tablet Indications: Nausea/vomiting in [...] tablet (2 sources)Nonsteroidal Anti-inflammatory DrugStart: 05-24-2021 End: 73-61-3562vbelbtyi sodium (ANAPROX) tablet 550 mgStart: 95-86-5658qqca 1 tablet by mouth twice daily at mealtimenaproxen (NAPROSYN) 500 MG tablet Take 1 tablet by mouth 2 times daily (with meals) 20 tablet 1 05/24/2021 Active pantoprazole 40 mg delayed release oral tablet (17 sources)Proton Pump InhibitorStart: 02-17-2024 End: 44-00-0079vjbo 1 tablet by mouth before mealtimepantoprazole (ProtoNix) 40 MG EC tablet Take 40 mg by mouth in the morning. Take before meals. 02/17/2024 09/30/2024 DiscontinuedpredniSONE 20 mg oral tablet (3 sources)Start: 82-36-2737djcg 1 tablet by mouth every twelve hourspredniSONE 20 MG 1 tablet Orally 2 times a day for 5 day(s) Aug, Not-Taking/PRN Start: 02-51-1516iqdi 1 tablet by mouth every twelve hourspredniSONE 20 MG 1 tablet Orally bid for 5 day(s) Apr, Active Problems Active Problems Problem ClassificationProblemDateDocumented DateEpisodic/ChronicAbdominal pain (11 sources)Pelvic and perineal pain; Translations: [Right lower quadrant pain] Onset: 76-11-6527QxcbmshaXyuuger dysrhythmias (20 sources)Postural orthostatic tachycardia syndrome ; Translations: [Postural orthostatic tachycardia syndrome (POTS)]Onset: 157305-12-9564Gkiyoky Cardiac dysrhythmias (4 sources)Palpitations; Translations: [Palpitations]25-74-9735Euwjwiaz Coagulation and hemorrhagic disorders (1 source)Qualitative platelet defects; 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]Onset: 72-92-0840OfodrunNiwvpbliim disorders (4 sources)Gastroesophageal reflux disease; Translations: [Gastro-esophageal reflux disease without esophagitis]24-47-5333PawitklFbcirrjn; including migraine (1 source)Cluster headache; Translations: [Cluster headache syndrome, unspecified, not intractable]70-35-5216QdbkslwQwwxhhbypyano and screening for infectious disease (4 sources)Contact with and (suspected) exposure to other viral communicable diseases; Translations: [Exposureto sexually transmissible disorder]Onset: 04-07-2021 Resolved: 99-17-7933AfkqqmweOpsvrmn and fatigue (20 sources)Fatigue; Translations: [Chronic fatigue, unspecified]Onset: 257056-33-1788JgoromvHhrmgpwma disorders (20 sources)Disorder of menstruation; Translations: [Irregular menstruation, unspecified]Onset: 819373-43-6846NdkjsbeGcqvjbv (3 sources)Candidal stomatitis; Translations: [Mycosis]Onset: 05-11-2021 Resolved: 46-45-8439VuwbxllgVgaadw and vomiting (4 sources)Nausea; Translations: [Nausea]59-75-1710OdfbkiaxGvwbq bone disease and musculoskeletal deformities (20 sources)Deal Schlatter disease; 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]Onset: 327745-57-7644AbpjqmnWenay circulatory disease (1 source)Postural orthostatic tachycardia hlfoxpju61-04-3036UcolzzifMzjih complications of (1 source)Vomiting of , unspecified; Translations: [Unspecified vomiting of , unspecified as to episode of care or not applicable] 38-53-6482XeggrvuuBtezf gastrointestinal disorders (2 sources)Diarrhea; Translations: [Diarrhea, unspecified]02-99-8243Urezyqxy Other gastrointestinal disorders (2 sources)Diarrhea, unspecified; Translations: [Diarrhea]78-40-6514Bvyryale Other gastrointestinal disorders (1 source)Dysphagia; Translations: [Dysphagia, unspecified]80-96-1361Eovzvgji Other gastrointestinal disorders (1 source)Dysphagia, unspecified; Translations: [Dysphagia, unspecified] 78-38-1045TjqnbryuAhbva injuries and conditions due to external causes (1 source)Closed injury of head; Translations: [Unspecified injury of head, initial encounter]EpisodicOther injuries and conditions due to external causes (1 source)Injury of coccyx; Translations: [Unspecified injury of lower back, initial encounter]EpisodicOther injuries and conditions due to external causes (2 sources)Injury of left knee; Translations: [Unspecified injury of left lower leg, initial encounter]58-50-1329KaivsuhlRjjan nutritional; endocrine; and metabolic disorders (20 sources)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 imbalance; Translations: [Other obesity due to excess calories]Onset: 389180-82-2415YrnchubRlrub nutritional; endocrine; and metabolic disorders (1 source)H/O: rdklfpiwobjrco51-92-3296XfxizmyaKcbab and delivery including normal (20 sources); Translations: [Encounter for supervision of normal , unspecified, unspecified trimester]35-98-9928TsnrsspdEqglt screening for suspected conditions (not mental disorders or infectious disease) (8 sources)Encounter for screening for malignant neoplasm of cervix; Translations: [Patient encounter status]Onset: 77-95-2682KzbrplgkGnodj upper respiratory infections (9 sources)Streptococcal sore throat; Translations: [Strep throat]Onset: 05-01-2021 Resolved: 29-33-0953NallzfidRvnymdgl codes; unclassified (2 sources)Gestation period, 11 weeks; Translations: [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 ]24-26-4020JodghqkpSeanxdap codes; unclassified (2 sources)Gestation period, 15 weeks; Translations: [15 weeks gestation of ]21-68-9878PfsigrynMjqslpeo codes; unclassified (2 sources)Gestation period, 19 weeks; Translations: [19 weeks gestation of ]19-01-6349TujrkcvqSaqpfzuq codes; unclassified (2 sources)Gestation period, 23 weeks; Translations: [23 weeks gestation of ]80-33-4522MhysnkezRueuxcfq codes; unclassified (2 sources)Gestation period, 27 weeks; Translations: [27 weeks gestation of ]50-69-3702NibznhabFytotfea codes; unclassified (2 sources)Gestation period, 29 weeks; Translations: [29 weeks gestation of ]86-22-7931HcylhwmrMvrftzzm codes; unclassified (2 sources)Gestation period, 31 weeks; Translations: [31 weeks gestation of ]78-97-4991NdcsozejOgcdxhty codes; unclassified (2 sources)Gestation period, 33 weeks; Translations: [33 weeks gestation of ]24-39-6354KcdtrdfvBzeopvwp codes; unclassified (2 sources)Gestation period, 35 weeks; Translations: [35 weeks gestation of ]03-08-7976PdwoqypuLcdimpyku-related disorders (20 sources)Cigarette smoker ; Translations: [Nicotine dependence, cigarettes, uncomplicated]Onset: 568508-38-4675ClwmncqBzjtkldsdwu injury; contusion (1 source)Contusion of left knee; Translations: [Contusion of left knee, initial encounter]EpisodicSyncope (2 sources)Syncope; Translations: [Syncope]Onset: 96-78-5093QkrxdavkFnjbqlo disorders (20 sources)Evan thyroiditis; Translations: [Autoimmune thyroiditis]Onset: 770041-69-3928UkhbkamLywfwwehdxex (2 sources)Unknown / UNK(Unknown)Onset: 34-59-9735Zwankdpscehn (2 sources)New Patient; Translations: [New Patient]Onset: 32-40-0700Mirllovxwgah (2 sources)POTSOnset: 11-27-2024 Past or Other Problems Problem ClassificationProblemDateDocumented DateEpisodic/ChronicChronic obstructive pulmonary disease and bronchiectasis (1 source)Bronchitis, not specified as acute or chronicOnset: 08-21-2021 Resolved: 59-94-5073YxklkltkOaaibmdvt (5 sources)Influenza; Translations: [Influenza A]Other circulatory disease (4 sources)Orthostatic hypotension; Translations: [ORTHOSTATIC HYPOTENSION] Onset: 68-38-2535RpriioqvEojdr circulatory disease (20 sources)Low blood pressure; Translations: [Hypotension, unspecified]Onset: 079678-04-2378KdasyxalQycmq non-traumatic joint disorders (20 sources)Pain in left knee; Translations: [Pain in joint, lower leg]Onset: 297079-67-6227ZqhbqkddKfpoq nutritional; endocrine; and metabolic disorders (20 sources)Body mass index 25-29 - overweight; Translations: [Overweight]Onset: 12-10-2022 Resolved: 489330-99-7371QflwatrhHnltwng cyst (20 sources)Cyst of ovary; Translations: [Unspecified ovarian cyst, unspecified side]Onset: 848531-09-6939Maafvjel Results Test NameValueInterpretationReference RangeFacilityALL THYROID STIM HORMONEon 80-64-9110Varhzvxzzqbynu and review of laboratory resultsAbnormalNOThe [facility] TSH Qn0.159 m[IU]/LLowNOMT HealthcareCLINISYNCNOMS HealthcareUS OB BPP W NON-STRESSon 33-32-3550KzdBro[place] [address] Ultrasound Report Signed Patient: ALETA CASTRO MR#: [id number] : 2000 Acct:[id number] Age/Sex: 24 / F ADM Date: 01/23/25 Loc: US Attending Dr: Doc Thomas D.O. Ordering Physician: Doc Thomas D.O. Date of Service: 01/23/25 Procedure(s): US OB BPP w non-stress Accession Number(s): [id number] cc: Doc Thomas D.O.; ROSALIE PAYNE [place] [phone] Patient Name: ALETA CASTRO MRN: [id number] date: 2000 Sex: F Assigned Patient Location: [facility] Current Patient Location: [facility] Accession/Order Number: [id number] Exam Date: 01/23/2025 08:41 Report Date: 01/23/2025 [...] Dalton M.D. 01/23/2025 9:25 AM Dictation Location: [place] [address] Electronically authenticated by: [id number] Y Date: 01/23/2025 09:25 Dictated By: Emmanuel Dalton M.D. Signed By: 01/23/25927 DD/ 4 TD/TT: Manhole Stripper:NINAHRadiology, Radiologist, - 01/23/2025 [place] [address] Ultrasound Report Signed Patient: ALETA CASTRO MR#: [id number] : 2000 Acct:[id number] Age/Sex: 24 / F ADM Date: 01/23/25 Loc: US Attending Dr: Doc Thomas D.O. Ordering Physician: Doc Thomas D.O. Date of Service: 01/23/25 Procedure(s): US OB BPP w non-stress Accession Number(s): [id number] cc: Doc Thomas D.O.; ROSALIE PAYNE [place] [address] Patient Name: ALETA CASTRO MRN: [id number] date: 2000 Sex: F Assigned Patient Location: [facility] Current Patient Location: [facility] Accession/Order Number: [id number] Exam Date: 01/23/2025 08:41 Report Date: 01/23/2025 [...] Dalton M.D. 01/23/2025 9:25 AM Dictation [facility] Electronically authenticated by: [id number] Y Date: 01/23/2025 09:25 Dictated By: Emmanuel Dalton M.D. Signed By: 01/23/25927 DD/ 4 TD/TT: Manhole Stripper: KYE HealthcareRadiology Study observation (narrative)NOMS HealthcareUS OB BPP W NON-STRESSOrdered By: Radiologist Radiology on 96-31-7592PEZB Left[employer] Work Phone: US OB BPP W NON-STRESSon 47-31-1873EjeBro[place], [place] [address] Ultrasound Report Signed Patient: ALETA CASTRO MR#: [id number] : 2000 Acct:[id number] Age/Sex: 24 / F ADM Date: 01/20/25 Loc: [facility] Attending Dr: Doc Thomas D.O. Ordering Physician: Doc Thomas D.O. Date of Service: 01/20/25 Procedure(s): US OB BPP w non-stress Accession Number(s): [id number] cc: Doc Thomas D.O.; ROSALIE PAYNE [place] [phone] Patient Name: ALETA CASTRO MRN: [id number] date: 2000 Sex: F Assigned Patient Location: [facility] Current Patient Location: Accession/Order Number: [id number] Exam Date: 01/20/2025 15:17 Report Date: 01/20/2025 [...] Adequate ultrasound biophysical profile Impression dictated by: oLi Ellington M.D. 01/20/2025 5:10 PM Dictation Location: [employer] Electronically authenticated by: [id number] Y Date: 01/20/2025 17:10 Dictated By: Loi Ellington D.O. Signed By: 01/20/251712 DD/ 09 TD/TT: Manhole Stripper:MARTINEadiologkehinde, Radiologist, - 01/20/2025 [place] [address] Ultrasound Report Signed Patient: ALETA CASTRO MR#: [id number] : 2000 Acct:[id number] Age/Sex: 24 / F ADM Date: 01/20/25 Loc: [facility] Attending Dr: Doc Thomas D.O. Ordering Physician: Doc Thomas D.O. Date of Service: 01/20/25 Procedure(s): US OB BPP w non-stress Accession Number(s): [id number] cc: Doc Thomas D.O.; ROSALIE PAYNE [place] [address] Patient Name: ALETA CASTRO MRN: [id number] date: 2000 Sex: F Assigned Patient Location: [facility] Current Patient Location: Accession/Order Number: [id number] Exam Date: 01/20/2025 15:17 Report Date: 01/20/2025 [...] Ellington M.D. 01/20/2025 5:10 PM Dictation Location: [employer] [facility] Electronically authenticated by: [id number] Y Date: 01/20/2025 17:10 Dictated By: Loi Ellington D.O. Signed By: 01/20/251712 DD/ 09 TD/TT: Manhole Stripper: [facility] HealthcareRadiology Study observation (narrative)NOMS HealthcareUS OB BPP W NON-STRESSOrdered By: Radiologist Radiology on 02-54-5185YCTB Healthcare Work Phone: Urinalysis macro (dipstick) panel [...] mg/dLNOMS HealthcareNOMS HealthcareUS OB BPP W NON-STRESSon 53-35-40[address] [address] Ultrasound Report Signed Patient: ALETA CASTRO MR#: [id number] : 2000 Acct:[id number] Age/Sex: 24 / F ADM Date: 01/11/25 Loc: US Attending Dr: Doc Thomas D.O. Ordering Physician: Doc Thomas D.O. Date of Service: 01/11/25 Procedure(s): US OB BPP w non-stress Accession Number(s): [id number] cc: Doc Thomas D.O.; ROSALIE PAYNE The [address] [id number] Patient Name: ALETA CASTRO MRN: [id number] date: 2000 Sex: F Assigned Patient Location: [facility] Current Patient Location: Accession/Order Number: [id number] Exam Date: 01/11/2025 15:03 Report Date: 01/11/2025 [...] 01/11/2025 9:15 PM Dictation Location: [place] [address] Electronically authenticated by: [id number] Y Date: 01/11/2025 21:15 Dictated By: Deshaun Aguilar M.D. Signed By: 01/11/252117 DD/ 14 TD/TT: Manhole Stripper:MARTINEadiology, Radiologist, MD - 01/11/2025 [place] [address] Ultrasound Report Signed Patient: ALETA CASTRO MR#: [id number] : 2000 Acct:[id number] Age/Sex: 24 / F ADM Date: 01/11/25 Loc: US Attending Dr: Doc Thomas D.O. Ordering Physician: Doc Thomas D.O. Date of Service: 01/11/25 Procedure(s): US OB BPP w non-stress Accession Number(s): [id number] cc: Doc Thomas D.O.; ROSALIE PAYNE [place] [phone] Patient Name: ALETA CASTRO MRN: [id number] date: 2000 Sex: F Assigned Patient Location: [facility] Current Patient Location: Accession/Order Number: [id number] Exam Date: 01/11/2025 15:03 Report Date: 01/11/2025 [...] 01/11/2025 9:15 PM Dictation Location: [place] [address] Electronically authenticated by: [id number] Y Date: 01/11/2025 21:15 Dictated By: Deshaun Aguilar M.D. Signed By: 01/11/252117 DD/ 14 TD/TT: Manhole Stripper: KYE HealthcareRadiology Study observation (narrative)NOMS HealthcareUS OB BPP W NON-STRESSOrdered By: Radiologist Radiology on 44-72-5068LLYG Healthcare Work Phone: Urinalysis macro (dipstick) panel [...] mg/dLNOMS HealthcareNOMS HealthcareUS OB BPP W NON-STRESSon 09-57-5306[place] [address] Ultrasound Report Signed Patient: ALETA CASTRO MR#: [id number] : 2000 Acct:[id number] Age/Sex: 24 / F ADM Date: 01/02/25 Loc: US Attending Dr: Doc Thomas D.O. Ordering Physician: Doc Thomas D.O. Date of Service: 01/02/25 Procedure(s): US OB BPP w non-stress Accession Number(s): [id number] cc: Doc Thomas D.O.; ROSALIE PAYNE [place] [phone] Patient Name: ALETA CASTRO MRN: [id number] date: 2000 Sex: F Assigned Patient Location: [facility] Current Patient Location: Accession/Order Number: [id number] Exam Date: 01/02/2025 09:00 Report Date: 01/02/2025 15:02 At the request of: DOC THOMAS DO Procedure: US OB BPP w non-stress US OB BPP w non-stress 01/02/2025 9:31 AM SIGNS AND SYMPTOMS: 02/20/2025 EVNA'S DISEASE E06.3 PROTOCOL: Transabdominal sonographic imaging of [...] Dalton M.D. 01/02/2025 3:02 PM Dictation Location: [place] [address] Electronically authenticated by: [id number] Y Date: 01/02/2025 15:02 Dictated By: Emmanuel Dalton M.D. Signed By: 01/02/25 1505 DD/ 1502 TD/TT: Manhole Stripper:TBHRadiology, Radiologist, - 01/02/2025 [place] [address] Ultrasound Report Signed Patient: ALETA CASTRO MR#: [id number] : 2000 Acct:[id number] Age/Sex: 24 / F ADM Date: 01/02/25 Loc: US Attending Dr: Doc Thomas D.O. Ordering Physician: Doc Thomas D.O. Date of Service: 01/02/25 Procedure(s): US OB BPP w non-stress Accession Number(s): [id number] cc: Doc Thomas D.O.; ROSALIE PAYNE [address] [address] Patient Name: ALETA CASTRO MRN: [id number] date: 2000 Sex: F Assigned Patient Location: [facility] Current Patient Location: Accession/Order Number: [id number] Exam Date: 01/02/2025 09:00 Report Date: 01/02/2025 [...] Dalton M.D. 01/02/2025 3:02 PM Dictation Location: [place] [address] Electronically authenticated by: [id number] Y Date: 01/02/2025 15:02 Dictated By: Emmanuel Dalton M.D. Signed By: 01/02/25 1509 DD/ 150 TD/TT: Manhole Stripper: KYE HealthcareRadiology Study observation (narrative)NOMS HealthcareUS OB BPP W NON-STRESSOrdered By: Radiologist Radiology on 46-82-4954TCIJProgress [facility] Work Phone: aLL THYROID STIM HORMONEon 11-94-0572Osbhrlsuedkulm and review of laboratory resultsAbnoEncompass Health [facility] Qn0.131 m[IU]/LLow NOMS HealthcareCLINISYNCNOMS HealthcareUS OB BPP W NON-STRESSon 12-26-2024 [place] [address] Ultrasound Report Signed Patient: ALETA CASTRO MR#: [id number] : 2000 Acct:[id number] Age/Sex: 24 / F ADM Date: 12/26/24 Loc: US Attending Dr: Doc Thomas D.O. Ordering Physician: Doc Thomas D.O. Date of Service: 12/26/24 Procedure(s): US OB BPP w non-stress Accession Number(s): [id number] cc: Doc Thomas D.O.; ROSALIE PAYNE [address] [address] Patient Name: ALETA CASTRO MRN: [id number] date: 2000 Sex: F Assigned Patient Location: [place] Current Patient Location: Accession/Order Number: [id number] Exam Date: 12/26/2024 09:00 Report Date: 12/26/2024 [...] 12/26/2024 11:19 AM Dictation Location: [place] [address] Electronically authenticated by: [id number] Y Date: 12/26/2024 11:19 Dictated By: Deshaun Aguilar M.D. Signed By: 12/26/24 1122 DD/ 1119 TD/TT: Manhole Stripper:TBHRadiology, Radiologist, MD - 12/26/2024 [place] [address] Ultrasound Report Signed Patient: ALETA CASTRO MR#: [id number] : 2000 Acct:[id number] Age/Sex: 24 / F ADM Date: 12/26/24 Loc: US Attending Dr: Doc Thomas D.O. Ordering Physician: Doc Thomas D.O. Date of Service: 12/26/24 Procedure(s): US OB BPP w non-stress Accession Number(s): [id number] cc: Doc Thomas D.O.; ROSALIE PAYNE The [address] [address] Patient Name: ALETA CASTRO MRN: [id number] date: 2000 Sex: F Assigned Patient Location: US Current Patient Location: Accession/Order Number: [id number] Exam Date: 12/26/2024 09:00 Report Date: 12/26/2024 [...] 12/26/2024 11:19 AM Dictation Location: [place] [address] Electronically authenticated by: [id number] Y Date: 12/26/2024 11:19 Dictated By: Deshaun Aguilar M.D. Signed By: 12/26/24 1122 DD/ 1119 TD/TT: Manhole Stripper: KYE HealthcareRadiology Study observation (narrative)NOMS HealthcareUS OB BPP W NON-STRESSOrdered By: Radiologist Radiology on 72-73-5424[facility] Work Phone: US OB GROWTHon 14-14-6197Ulq[place], [place] [address] Ultrasound Report Signed Patient: ALETA CASTRO MR#: [id number] : 2000 Acct:[id number] Age/Sex: 24 / F ADM Date: 12/26/24 Loc: US Attending Dr: Doc Thomas D.O. Ordering Physician: Doc Thomas D.O. Date of Service: 12/26/24 Procedure(s): US OB growth Accession Number(s): [id number] cc: Doc Thomas D.O.; ROSALIE PAYNE [place] [id number] Patient Name: ALETA CASTRO MRN: [id number] date: 2000 Sex: F Assigned Patient Location: Current Patient Location: Accession/Order Number: [id number] Exam Date: 12/26/2024 09:00 Report Date: 12/26/2024 11:31 At the request of: DOC THOMAS DO Procedure: US OB growth Obstetric ultrasound for growth INDICATION: Evan's disease FINDINGS: Single live anterior cephalic presentation longitudinal lie. Amniotic fluid index 12.4 cm between the gestational age fifth and 95th percentile. Largest pocket of fluid 5.1 cm. heart rate 1 52 bpm. motion documented by the babbitter.. Estimated weight 2093 g 71.4%. Gestation age 32 weeks and 0 days. Biparietal diameter 7.93 m. Head circumference 30.7 cm. Otherwise the 10.6 cm. Abdominal circumference 28.9 cm. Femur length 6.4 cm. US/US OB growth IMPRESSION: Single live intrauterine of approximately 30 weeks Impression dictated by: Deshaun Aguilar M.D. 12/26/2024 11:31 AM Dictation Location: [place] [address] Electronically authenticated by: [id number] Y Date: 12/26/2024 11:31 Dictated By: Deshaun Aguilar M.D. Signed By: 12/26/24 1133 DD/ 1131 TD/TT: Manhole Stripper:TBHRadiology, Radiologist, MD - 12/26/2024 [place] [address] Ultrasound Report Signed Patient: ALETA CASTRO MR#: [id number] : 2000 Acct:[id number] Age/Sex: 24 / F ADM Date: 12/26/24 Loc: Attending Dr: Doc Thomas D.O. Ordering Physician: Doc Thomas D.O. Date of Service: 12/26/24 Procedure(s): US OB growth Accession Number(s): [id number] cc: Doc Thomas D.O.; ROSALIE PAYNE [address] [address] Patient Name: ALETA CASTRO MRN: [id number] date: 2000 Sex: F Assigned Patient Location: Current Patient Location: Accession/Order Number: [id number] Exam Date: 12/26/2024 09:00 Report Date: 12/26/2024 11:31 At the request of: DOC THOMAS DO Procedure: US OB growth Obstetric ultrasound for growth INDICATION: Evan's disease FINDINGS: Single live anterior cephalic presentation longitudinal lie. Amniotic fluid index 12.4 cm between the gestational age fifth and 95th percentile. Largest pocket of fluid 5.1 cm. heart rate 1 52 bpm. motion documented by the babbitter.. Estimated weight 2093 g 71.4%. Gestation age 32 weeks and 0 days. Biparietal diameter 7.93 m. Head circumference 30.7 cm. Otherwise the 10.6 cm. Abdominal circumference 28.9 cm. Femur length 6.4 cm. US/US OB growth IMPRESSION: Single live intrauterine of approximately 30 weeks Impression dictated by: Deshaun Aguilar M.D. 12/26/2024 11:31 AM Dictation Location: [place] [address] Electronically authenticated by: [id number] Y Date: 12/26/2024 11:31 Dictated By: Deshaun Aguilar M.D. Signed By: 12/26/24 1133 DD/ 1131 TD/TT: Manhole Stripper: KYE HealthcareRadiology Study observation (narrative)[facility] HealthcareUS OB GROWTHOrdered By: Radiologist Radiology on 81-59-8083EXCBProgress West [facility] Work Phone: Urinalysis macro (dipstick) panel (U)on 12-23-2024 Bilirubin, UANegativeNegative - 4(70) +++ mg/dLNOMS HealthcareBlood, UANegative Negative - 50 Randall/mcLNOMS HealthcareClarity, UAClearNOMS HealthcareColor, UA YellowNOMS HealthcareGlucose, UA1+Negative - 1999(110) ++++ mg/dLNOMT Healthcare Interpretation and review of laboratory resultsAbnormalNOMT HealthcareKetones, UANegativeNegative - 160(16) ++++ mg/dLNOMS HealthcareLeukocytes, UATrace Negative - 500+++ Rick/mcLNOMS HealthcareNitrite, UANegativeNegative - Positive NOMS HealthcarepH, UA65 - 9NOMS HealthcareProtein, UANegativeNegative - 2000(20) ++++ mg/dLNOMS HealthcareSpec Grav, UA1.0151 - 1.03NOMS HealthcareUrobilinogen, UA2.00.2 - 12 mg/dLNOMS HealthcareNOMS HealthcareUrinalysis macro (dipstick) panel (U)on 44-47-0140Oluysphwq, UANegativeNegative - 4(70) +++ mg/dLNOMS HealthcareBlood, UANegativeNegative [...] UA0.20.2 - 12 mg/dLNOMS HealthcareNOMS HealthcareOffice Visiton 05-82-9831Dxwbbs-up visit [id number] Aleta Castro 2000 F Date Provider Department Center 11/27/2024 69098-KWQBCLLESA SINGH TRES [facility] Family History Family Status - Relation Status Age at Mother Alive Father Alive Level of Service:10555 [place] OFFICE/OUTPATIENT NEW LOW MDM 30 MINUTES Reason for Visit and Comments: New Patient [632] - New patient here today to establish care with cardiology Syncope [506] POTS [Other] Positive tilt table [Other] 6 months [Other]NormalUnOhioHealth Nelsonville Health CenterUrinalysis macro (dipstick) panel (U)on 19-50-1052Mmtqmxbga, UAPositiveNegative - 4(70) +++ mg/dLNOMS HealthcareComment on [...] 12 mg/dLNOMS HealthcareNOMS HealthcareCA ECHO DOPPLER COMPLETEon 59-44-6069Pzz[place] [address] Cardiology Report Signed Patient: ALETA CASTRO MR#: [id number] : 2000 Acct:[id number] Age/Sex: 24 / F ADM Date: 11/12/24 Loc: CARD Attending Dr: Luna Steen Ordering Physician: Luna Steen Date of Service: 11/12/24 Procedure(s): CA echo doppler complete Accession Number(s): [id number] cc: Luna Steen; ROSALIE PAYNE Patient Name: AELTA CASTRO MR#: [id number] : 2000 Exam Date: 11/12/2024 Ordering Doctor: LUNA STEEN [facility] ECHOCARDIOGRAM REPORT PROCEDURE: CA ECHO [...] not included)...TBHRadiology, Radiologist, MD - 11/24/2024 [place] [address] Cardiology Report Signed Patient: ALETA CASTRO MR#: [id number] : 2000 Acct:[id number] Age/Sex: 24 / F ADM Date: 11/12/24 Loc: CARD Attending Dr: Luna Steen Ordering Physician: Luna Steen Date of Service: 11/12/24 Procedure(s): CA echo doppler complete Accession Number(s): [id number] cc: Luna Steen; ROSALIE PAYNE Patient Name: ALETA CASTRO MR#: [id number] : 2000 Exam Date: 11/12/2024 Ordering Doctor: LUNA STEEN [facility] ECHOCARDIOGRAM REPORT PROCEDURE: CA ECHO [...] Signed By: 11/24/24 1640 DD/ 1639 TD/TT: Manhole Stripper: KYE [facility] CenterRadiology Study observation (narrative)[facility] West HospitalCA ECHO DOPPLER COMPLETEOrdered By: Radiologist Radiology on 50-19-0649[facility] Work Phone: ecg 12-LEADon [phone] [address] Electrocardiograph Report Signed Patient: ALETA CASTRO MR#: [id number] : 2000 Acct:[id number] Age/Sex: 24 / F ADM Date: 11/12/24 Loc: CARD Attending Dr: Luna Steen Ordering Physician: Luna Steen Date of Service: 11/12/24 Procedure(s): ECG 12 lead Accession Number(s): [id number] cc: [facility] Test Date: 2024-11-12 Pat Name: LAETA CASTRO Department: Room: - 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 Signed By: 11/13/24133311/13/24 133 DD/ 1206 TD/TT: Manhole Stripper: KYE Garay 12-LEADOrdered By: Radiologist Radiology on 90-89-7748UIJN [employer] Work Phone: ECG 12-LEADon 55-49-6596Jqnrvggns Study observation (narrative)NOMS HealthcareALL CBC WITH AUTO DIFFon 42-27-9191GWTVBXHRF ABSOLUTE RLAC0PPYS HealthcareBasophils/100 WBC (Bld)0.2 %0.2 - 2.0 %[facility] Eosinophils/100 WBC (Bld)0.5 %Low0.9 - 7.0 %NOMS HealthcareErythrocyte distribution width (RBC) [Ratio]12.7 %11.0 - 15.0 %NOMS HealthcareHematocrit (Bld) [Volume fraction]31.2 %Low36.0 - 48.0 %NOM HealthcareHemoglobin (Bld) [Mass/Vol]10.8 g/dLLow12.0 - 16.0 g/dLNOMT HealthcareIMMATURE GRANULOCYTES ABS AUTO0.01NOMS HealthcareImmature granulocytes/100 WBC (Bld)0.2 %0.0 - 0.5 %NOM HealthcareInterpretation and review of laboratory resultsAbnormalNOMT Healthcare LYMPHOCYTES ABSOLUTE DIQN5JuaTGCR HealthcareLymphocytes/100 WBC (Bld)15 %Low20.5 - 60.0 %Progress West HospitalMCH (RBC) [Entitic mass]32.3 pg26.7 - 34.[address] pgNOThe Rehabilitation Institute of [address]. LouisMCHC (RBC) [Mass/Vol]34.6 g/dL29.9 - 35.2 g/dLNOThe Rehabilitation Institute of St. LouisMCV (RBC) [Entitic vol]93.4 fL81.0 - 99.0 fLNOMT HealthcareMONOCYTES ABSOLUTE AUTO0.5NOMS HealthcareMonocytes/100 WBC (Bld)7.7 %1.7 - 12.0 %NOMS HealthcareNEUTROPHILS ABSOLUTE RZBK5HPCR HealthcareNeutrophils/100 WBC (Bld)76.4 %High43.0 - 75.0 % NOM HealthcarePlatelet mean volume (Bld) [Entitic vol]9.7 fL9.5 - 13.5 fLNOMT HealthcareTBH EO #0NOMS HealthcareTBH ESL912AFFG HealthcareTB RBC3.34LowNOMS HealthcareTBH WBC6.6NOMS HealthcareCLINISYNCNOMS HealthcareIGP,APTIMA HPV,AGE GDLNon 97-02-9041FTI GDLN ACOG TESTINGNote.[facility] HealthcareComment on above:TESTS RESULT FLAG UNITS REF RANGE LAB Clinician Provided Cytology Information Source.............Endocervix No. of containers..01 ThinPrep Vial Age Ernieo CESAR Yaa... FLAG LEGEND: L-Low Normal,H-High Normal,LL-Alert Low,HH-Alert High <-Panic Low,>-Panic High,A-Abnormal,AA-Critical Abnormal Performed at: 01 =G [address] [address] Ludy Hector MD, IGP, RFX APTIMA HPV ASCUNote.[facility] HealthcareComment on above:TESTS RESULT FLAG UNITS REF RANGE LAB DIAGNOSIS: 02 NEGATIVE FOR INTRAEPITHELIAL LESION OR MALIGNANCY. THIS SPECIMEN WAS RESCREENED PART OF OUR MANAGER ROOFING PROGRAM. Specimen adequacy: 02 Satisfactory for evaluation. No endocervical component is identified. Performed by: 02 Brionna Mello Bracer ([facility]) QC reviewed by: 02 Polina Simons Bracer . 02 Note: Note 02 The Pap [...] <-Panic Low,>-Panic High,A-Abnormal,AA-Critical Abnormal Performed at: [address] [address] Ludy Hector MD, Performed at: = - [facility] [id number] Marine Pilot: Ludy Hector MD, Phone: [phone] Performed at: [facility] [address] [id number] Marine Pilot: Ludy Hector MD, Phone: [phone] BRUSH-SPATULA ENDOCERVIX CLINISYNCNOMS HealthcareRECURRENT VAGINITIS (HTRX)on 92-09-3372XZPTWBLKL VAGINAE 0NOMS HealthcareATOPOBIUM VAGINAENot detectedNOMS HealthcareBVAB 2,3 (BACTERIAL VAGINOSIS ASSOCIATED BACTERIA 2, 3); MOBILUNCUS VWX7VWSM HealthcareBVAB 2,3 (BACTERIAL VAGINOSIS ASSOCIATED BACTERIA 2, 3); MOBILUNCUS SPPNot detectedNOMS HealthcareCANDIDA ALBICANS, PARAPSILOSIS, YXVZQNFNKZ9ELDJ HealthcareCANDIDA ALBICANS, PARAPSILOSIS, TROPICALISNot detectedNOMS HealthcareCANDIDA GLABRATA0 NOMS HealthcareCANDIDA GLABRATANot detectedNOMS HealthcareCANDIDA AQPAWC2YMAN HealthcareCANDIDA KRUSEINot detectedNOMS HealthcareCHLAMYDIA VYNCRUHGTMZ6EJAH HealthcareCHLAMYDIA TRACHOMATISNot detectedNOMS HealthcareGARDNERELLA VAGINALIS0 NOMS HealthcareGARDNERELLA VAGINALISNot detectedNOMS HealthcareMEGASPHAERA (TYPES 1, 2)0NOMS HealthcareMEGASPHAERA (TYPES 1, 2)Not detectedNOMS Healthcare MYCOPLASMA LUVFXIZCEK9WPJJ HealthcareMYCOPLASMA GENITALIUMNot detectedNOMS HealthcareNEISSERIA LZRLCTLJAZD9UUHG HealthcareNEISSERIA GONORRHOEAENot detected NOMS HealthcareTRICHOMONAS AYGRWQROL2TFEY HealthcareTRICHOMONAS VAGINALISNot detectedNOMS HealthcareNOMS HealthcareUrinalysis macro (dipstick) panel (U)on 69-93-1400Lzutgcauq, UAPositiveNegative - 4(70) +++ mg/dLNOMS HealthcareBlood, UANegativeNegative [...] 12 mg/dLNOMS HealthcareNOMS HealthcareUS OB CERVICAL LENGTHon 60-68-7205Zlj[address] [address] Ultrasound Report Signed Patient: ALETA CASTRO MR#: [id number] : 2000 Acct:[id number] Age/Sex: 24 / F ADM Date: 10/06/24 Loc: US Attending Dr: Doc Thomas D.O. Ordering Physician: Doc Thomas D.O. Date of Service: 10/06/24 Procedure(s): US OB cervical length Accession Number(s): [id number] cc: Doc Thomas D.O.; ROSALIE PAYNE [place] [address] Patient Name: ALETA CASTRO MRN: [facility]:[id number] date: 2000 Sex: F Assigned Patient Location: US Current Patient Location: US Accession/Order Number: [id number] Exam Date: 10/06/2024 14:25 Report Date: 10/06/2024 [...] Jr., D.O. 10/06/2024 2:26 PM Dictation Location: [place] [address] Electronically authenticated by: [id number] Y Date: 10/06/2024 14:26 Dictated By: Jermaine Nguyễn M.D. Signed By: 10/06/24 1428 DD/ 1426 TD/TT: Manhole Stripper:NINAHRadiology, Radiologist, MD - 10/06/2024 [place] [address] Ultrasound Report Signed Patient: ALETA CASTRO MR#: [id number] : 2000 Acct:[id number] Age/Sex: 24 / F ADM Date: 10/06/24 Loc: US Attending Dr: Doc Thomas D.O. Ordering Physician: Doc Thomas D.O. Date of Service: 10/06/24 Procedure(s): US OB cervical length Accession Number(s): [id number] cc: Doc Thomas D.O.; ROSALIE PAYNE [place] [phone] Patient Name: ALETA CASTRO MRN: TBH:[id number] date: 2000 Sex: F Assigned Patient Location: US Current Patient Location: US Accession/Order Number: [id number] Exam Date: 10/06/2024 14:25 Report Date: 10/06/2024 [...] Jr., D.O. 10/06/2024 2:26 PM Dictation Location: [place] [address] Electronically authenticated by: [id number] Y Date: 10/06/2024 14:26 Dictated By: Jermaine Nguyễn M.D. Signed By: 10/06/24 1428 DD/ 25 TD/TT: Manhole Stripper: KYE [facility] CenterRadiology Study observation (narrative)[facility] OB CERVICAL LENGTHOrdered By: Radiologist Radiology on 34-49-6378YGIK [employer] Work Phone: US OB 14+ WEEKS ANATOMY SCANon 14-54-3467FO OB 14+ WEEKS ANATOMY SCANFINDINGS: A single, [...] Delivery: 02/20/25 Gestational Age as of 09/02/2024: 31y9tRddoipscmg macro (dipstick) panel (U)on 94-62-7154Cwiushkio, UANegativeNegative - 4(70) +++ mg/dLNOMS HealthcareBlood, UANegativeNegative [...] mg/dLNOMS HealthcareNOMS Healthcare ALL THYROID STIM HORMONEon 81-40-8402OSO Qn0.836 m[IU]/LNOMS HealthcareCLINISYNC NOMS HealthcareUrinalysis macro (dipstick) panel (U)on 08-79-6048Mirqwaoug, UA NegativeNegative - 4(70) +++ mg/dLNOMS HealthcareBlood, [...] 12 mg/dLNOMS HealthcareNOMS HealthcareALL THYROID STIM HORMONEon 13-55-2494CBJ Qn1.413 m[IU]/LNOMS HealthcareCLINISYNCNOMS HealthcareUrinalysis macro (dipstick) panel (U)on 26-39-5813Syvcrempn, UANegativeNegative - 4(70) +++ mg/dLNOMS HealthcareBlood, UANegativeNegative [...] UA1.00.2 - 12 mg/dLNOMS HealthcareNOMS HealthcareBOX TESTon 25-55-5263TCO TEST SENT OUTUNITY NOMS PspbfoabpxAKP0EMFIIBGYW UaftkgdcjxBFQ08/3/25NOMT HealthcareUNSOUTHERN [facility]IO [facility] CLINISYNCNOMS HealthcareTBH DRUG SCREEN RAPID (URINE)on 26-96-0410WLMXQLDPUMT SCREEN URINENegativeNEGATIVENOMS HealthcareBARBITURATES SCREEN URINENegative NEGATIVENOMS HealthcareBENZODIAZEPINES [...] URINENegativeNEGATIVENOMS HealthcareCLINISYNCNOMS HealthcareHCG ( test) Ql (U)on 41-06-4132Upwydlzdmnrjex and review of laboratory resultsAbnormalNOMS HealthcarePreg Test, UrPositiveNegativeNOMS HealthcareNOMS HealthcareUS OB TRANSVAGINALon 71-73-9357GK OB TRANSVAGINALEXAM: US OB TRANSVAGINAL HISTORY: Dating. [...] II, MD, PHD at 19-Jul-2024 08:55:15 PM [facility] TeleradiologyNormalNot AvailableComment on above:Order Comment: US OB TRANSVAGINAL No LMP recorded.Urinalysis macro (dipstick) panel (U)on 97-68-8210Sorxthbqy, UA NegativeNegative - 4(70) +++ mg/dLNOMS HealthcareBlood, UANegativeNegative - 50 Randall/mcLNOMS HealthcareClarity, UAClearNOMS HealthcareColor, UAYellowNOMS HealthcareGlucose, UANegativeNegative - 2000(110) ++++ mg/dLNOMS Healthcare Interpretation and review of laboratory resultsNormalNOMT HealthcareKetones, UA NegativeNegative - 160(16) ++++ mg/dLNOMS HealthcareLeukocytes, UANegative Negative - 500+++ Rick/mcLNOMS HealthcareNitrite, UANegativeNegative - Positive NOMS HealthcarepH, UA6.55 - 9NOMS HealthcareProtein, UANegativeNegative - 2000(20) ++++ mg/dLNOMS HealthcareSpec Grav, UA1.021 - 1.03N[facility] Healthcare Urobilinogen, UA1.00.2 - 12 mg/dLNOMS HealthcareNOMS HealthcareCBC W Auto Differential panel (Bld)on 00-80-1319Fwak form neutrophils (Bld) [#/Vol]CANCELED NOMS HealthcareComment on above:Result canceled by the ancillary.Band form neutrophils/100 WBC (Bld)CANCELED%NOMS HealthcareComment on above:Result canceled by the ancillary.Basophils (Bld) [#/Vol]19 10*3/uLNOMS Healthcare Basophils/100 WBC (Bld)0.4 %NOM HealthcareBlasts (Bld) [#/Vol]CANCELED0 cells/uLNOMS HealthcareComment on above:Result canceled by the ancillary. Blasts/100 WBC (Bld)CANCELED%NOMS HealthcareComment on above:Result canceled by the ancillary.Eosinophils (Bld) [#/Vol]91 10*3/uLNOMS HealthcareEosinophils/100 WBC (Bld)1.9 %[facility] HealthcareErythrocyte distribution width (RBC) [Ratio]12.5 % 11.0 - 15.0 %NOM HealthcareHematocrit (Bld) [Volume fraction]38.9 %35.0 - 45.0 %[facility] HealthcareHemoglobin (Bld) [Mass/Vol]12.8 g/dL11.7 - 15.5 g/dLProgress West HospitalLymphocytes (Bld) [#/Vol]1282 10*3/uLNOMS HealthcareLymphocytes/100 WBC (Bld)26.7 %[facility]. [facility] HospitalH (RBC) [Entitic mass]30.6 pg27.0 - 33.0 pgSt. Luke's HospitalHC (RBC) [Mass/Vol]32.9 g/dL32.0 - 36.0 g/dLNOMT HealthcareComment on above:For adults, a slight decrease in the calculated MCHC value (in the range of 30 to 32 g/dL) is most likely not clinically significant; however, it should be interpreted with caution in correlation with other red cell parameters and the patient's clinical condition. MCV (RBC) [Entitic vol]93.1 fL80.0 - 100.0 fLSPANISH FORK HOSPITAL HealthcareMetamyelocytes (Bld) [#/Vol]CANCELED0 cells/uLNOMS HealthcareComment on [...] the ancillary.Nucleated RBC/100 WBC (Bld) [Ratio]CANCELED0 /100 WBCNOMT Healthcare Comment on above:Result canceled by the [...] NOMS HealthcareIron and Iron binding capacity panelon 03-91-9529Aykv [Mass/Vol] 101 ug/dLNOMT HealthcareIron binding capacity [Mass/Vol]340NOMS HealthcareIron saturation [Mass fraction]30NOMS HealthcareLaboratory - Chemistry and Chemistry - challengeon 55-16-0955Xclyfux [Mass/Vol]4.8 g/dL3.6 - 5.1 g/dLNOMT Healthcare Albumin/Globulin [Mass ratio]1.8 {ratio}NOMS HealthcareALP [Catalytic [...] (S/P/Bld) [Vol rate/Area]122 mL/min/{1.73_m2}> OR = 60 mL/min/1.05o8ATTX HealthcareGlobulin (S) [Mass/Vol]2.6 g/dLNOMS HealthcareGlucose [Mass/Vol]95 mg/dL65 - 99 mg/dLNOMT HealthcareComment on above: Fasting reference interval Potassium [Moles/Vol]4.2 mmol/L3.5 - 5.3 mmol/LNOMS HealthcareProtein [Mass/Vol] 7.4 g/dL6.1 - 8.1 g/dLNOMS HealthcareSodium [Moles/Vol]139 mmol/L135 - 146 mmol/LNOMS HealthcareUrea nitrogen [Mass/Vol]16 mg/dL7 - 25 mg/dLNOMS Healthcare Urea nitrogen/Creatinine [Mass ratio]SEE NOTE:NOMS HealthcareComment on above: Not Reported: BUN and Creatinine are within reference range. Laboratory - Serology - non-microon 37-99-5454Uagncnfvwezbv Ab Qn153 [IU]/mLHigh < or = 1 IU/mLNOMS HealthcareTPO Ab Qn27 [IU]/mLHighNICentennial Medical Center at Ashland City Information 32-02-1949Yedipbnwffrrrq and review of laboratory resultsAbnormal [facility] Organization Information Site ID: QTW Name: [employer] [facility] Address: [address] [place] [id number] Director: Urvashi TaborAscension Columbia Saint [facility] Organization Information Site ID: QPT Name: [facility] Address: [address] [facility], [address] [place] [address] Director: Yonis Beck MD[address] 49-38-7668Kjhj T3 [Mass/Vol] 3.6 pg/mLNormal2.3-4.2Quest DiagnosticsComment on above:Performed By: #### 029, 19996, 866 #### [facility] [place] [address] Gyro Mechanic: Yonis Beck MDT, [facility] 66-35-1691Ribi T4 [Mass/Vol]1.1 ng/dLNormal0.8-1.8Quest DiagnosticsComment on above:Order Comment: FASTING:NO FASTING: NOPerformed By: #### 499, 99270, 866 #### [facility] [place] [address] Gyro Mechanic: Yonis Mari 32-98-9178TDT Qn1.98 m[IU]/LNormalQuest DiagnosticsComment on above:Result Comment: Reference Range > or = 20 Years 0.40-4.50 Ranges First trimester 0.26-2.66 Second trimester 0.55-2.73 Third trimester 0.43-2.91Performed By: #### 289, 99925, 866 #### [facility] [place] [address] Gyro Mechanic: Yonis WOLF ( test) IA.rapid Ql (U)Ordered By: Marcelle Espinosa on 15-45-2726PWL ( test) Ql (U)NegativeOhiohealth Doctors HospitalHCG,Urineon 63-79-9846Jcay HCG ( test) Ql (U) NegativeNoUNC Health Rockingham Physician GroupComment on above:Result Comment: PERFORMED BY: [place] [address] IN TELLER RAYMOND SUERO M.D.Performed By: #### [facility] #### [place] [address] USALon 03-29-3272ABcsmknxb: [id number] Received: 09/03/23 Status: FRANKLYN Gonzales Num: [id number] Spec Type: Surgical Subm Dr: Marcelle Espinosa [...] Location Account Attending Physician Aleta Castro / [id number] Marcelle Espinosa DO SPEC NUM: [id number] RECD: 09/03/23 STATUS: FRANKLYN GONZALES NUM: [id number] MIRIAM: 09/02/23- SUBM DR: Marcelle Espinosa DO ENTERED: 09/03/[address] [facility] [address]: SPEC TYPE: Surgical DEPT: [...] mild squamous acanthosis and occasionally associated Specimen: [id number] Received: 09/03/23 Status: FRANKLYN Bradshawcharley Num: [id number] Spec Type: Surgical Subm Dr: Marcelle Espinosa, Tissues: A Small Intestine - Biopsy/Polyp (SMALL BOWEL BX) B GASTRIC FOR HP (GASTRIC HP) C Esophagus Biopsy (DISTAL ESOPHAGUS) D Esophagus Biopsy (PROXIMAL ESOPHAGUS) E Colon Biopsy (RANDOM RT COLON) F Colon Biopsy (RANDOM LT COLON) Procedures: HE/12, Gross/Micro L4/6, H PYLORI, IHC First AB Patient: Aleta Castro N [id number] (Continued) Specimen: [id number] Received: 09/03/23 (Continued) Pathological Diagnosis (Continued) Signed (signature on file) Heather Villegas MD 09/05/23 1417 Specimen: [id number] Received: 09/03/23 Status: FRANKLYN Gonzales Num: [id number] Spec Type: Surgical Subm Dr: Marcelle Espinosa DO Tissues: A Small Intestine - Biopsy/Polyp (SMALL BOWEL BX) B GASTRIC FOR HP (GASTRIC HP) C Esophagus Biopsy (DISTAL ESOPHAGUS) D Esophagus Biopsy (PROXIMAL ESOPHAGUS) E Colon Biopsy (RANDOM RT COLON) F Colon Biopsy (RANDOM LT COLON) Procedures: HE/12, Gross/Micro L4/6, H PYLORI, IHC First AB Patient: Aleta Castro N [id number] (Continued) Specimen: [id number] Received: 09/03/23 (Continued) Pathological Diagnosis (Continued) lymphocytic [...] 0.1 cm, entirely submitted (more content not included)...[facility] Physician GroupInsurance Correspondence Officeon 23-46-5786Okqzfkgup Correspondence [id number]#1.00TIFFNoDayton VA Medical CenterIntraOperative Documentson 26-60-1272JdntkTtphtfnmy [id number]#1.00TIFProMedica Memorial HospitalPostoperative Documentson 28-26-1891Lfmkuckzsgvwm Documents [id number]#1.00TIFProMedica Memorial HospitalMain OR Intraoperative Recordon 04-85-9003Vwdn OR Intraoperative Record IntraOp Document Type FT Summary Primary Physician: Myron Marroquin DO Finalized Date/Time: 04/25/23 09:04:33 Pt. Name: ALETA CASTRO/Sex: 2000 Female Med Rec #: [id number] Physician: Myron Marroquin DO Financial #: [id number] Pt. Type: A Room/Bed: [facility]/ Admit/Disch: 04/23/23 06:25:15 - 04/23/23 14:50:00 [...] assist with the block. Patient's heartrate 89, cg88-453% on room air. patient tolerated block well. 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 Last Modified By: Souleymane RN, Lyle Comer RN, Lyle Comer RNLyle 04/23/23 10:59:32 04/23/23 10:59:32 04/23/23 10:59:32 Entry 4 Entry 5 Entry 6 Case Attendee Regulo Rodgers Laura C Wilhelm CST, Benjamin Role Performed Staff - Other Scrub - Primary DIRECTOR METABOLISM/SA Time In 04/23/23 08:50:00 04/23/23 08:50:00 04/23/23 [...] FT Pre-Care Text: Implements (more content not included)...[facility] Consent for Anesthesiaon 23-89-2874Dsegleq for Anesthesia [id number]#1.00TIFProMedica Memorial HospitalDischarge Instructionson 52-78-6301Ztaanjxcm Instructions [id number]#1.00[facility] HealthIntraOperative Documentson 35-42-9542ToxacDvjuaniat Documents [id number]#1.00[facility] HealthOperative Reporton 02-80-7228Rhkxvnsnh ReportSURGERY DATE: 04/23/2023 VICE PRESIDENT BUSINESS DEVELOPMENT: Garry Camacho CST PREOPERATIVE DIAGNOSIS: Left knee anterior cruciate ligament tear POSTOPERATIVE DIAGNOSIS: Left knee anterior cruciate ligament tear OPERATION: Left knee diagnostic operative arthroscopy with autograft ifyo-hjxkuq-tbmb anterior cruciate ligament reconstruction with InternalBrace augmentation ANESTHESIA: General as well as regional block ANESTHESIOLOGIST: KARTHIKEYAN Peacock ESTIMATED BLOOD LOSS: 10 mL INTRAVENOUS FLUIDS: Please see the operative record SPECIMEN: None COMPLICATIONS: None IMPLANTS: Arthrex fdpc-kcpncv-wnuk Tightrope system with the button for the [...] The anterior cruciate ligament was reconstructed using tbto-squoeh-pwlu from patellar tendon autograft with this InternalBrace [...] by over reaming with a 10 mm section laborer. Excess bone debris is again removed. The [...] tensioned on the femo (more content not included)...[facility] HospitalComment on above:Result Comment: Electronically Signed By: Myron Marroquin DO\.ammy\Date and Time Signed: 04/24/23 07:15 ESTPreoperative Documentson 50-55-9322Ysmylbydmblh Documents [id number]#1.00TIFFNormalCleveland Clinic Marymount HospitalConsent for Procedure/Surgeryon 93-07-4581Fksdukt for Procedure/Surgery [id number]#1.00[facility] HealthConsent for Treatmenton 17-26-9945Bxfbdlo for Treatment [id number]#1.00[facility] HealthDischarge Instructionson 94-17-3899Fxkigfpji Instructions ALETA CASTRO :2000 Visit Date:04/23/2023 Inpatient [...] been scheduled. Call for any problems. Where: [address] [place] [address] [place] (1) Medications What How Much When Instructions Next Dose New acetaminophen-oxycodone (Percocet 5 mg-325 mg oral tablet) 1 Tablets By Mouth As Directed 1-2 po Q4-6h prn pain Dx: S83.512D Duration: 7 days Pickup at [facility]/pharmacy #2345 New aspirin (Ecotrin 325 mg Tab-EC) 1 Tablets By Mouth Every day Pickup at [facility]/pharmacy #2345 Pharmacy Information [facility]/pharmacy #[id number]: [address], [place] [phone] Allergies Banana (Throat tightness, Hives, Vomiting) Latex (Hives, Swelling) azithromycin (Hives) midodrine (Numbness) Education Materials [place], [place] [facility] DISCHARGE INSTRUCTIONS: ANTERIOR CRUCIATE [...] any concerns. Myron Marroquin, DO [facility] [address] [place] [address] Reviewed: 06-23 Revised: 03/29 Common Emergency [...] your experie (more content not included)...[facility] HospitalComment on above:Result Comment: Electronically Signed By: Marcelo MCQUEEN, Shyla Acevedo\.br\Date and Time Signed: 04/23/23 10:58 ESTH&P Updateon 04-23-2023H&P [id number]#1.00TIFF [facility] HospitalMain OR PACU I Recordon 45-66-4809Pofl OR PACU I RecordPACU Phase I Document Type FT Summary Primary Physician: Myron Marroquin DO Finalized Date/Time: 04/23/23 12:22:33 Pt. Name: ALETA CASTRO/Sex: 2000 Female Med Rec #: [id number] Physician: Myron Marroquin DO Financial #: [id number] Pt. Type: A Room/Bed: [place] [address] Admit/Disch: 04/23/23 06:25:15 - Institution: Case Times [...] Signatures Signed By: Valencia Jimenez RN 04/23/23 12:22[facility] HospitalMain OR Preoperative Recordon 32-60-3341Pppk OR Preoperative RecordPreOp Document Type FT Summary Primary Physician: Myron Marroquin DO Finalized Date/Time: 04/23/23 08:50:41 Pt. Name: ALETA CASTRO/Sex: 2000 Female Med Rec #: [id number] Physician: Myron Marroquin DO Financial #: [id number] Pt. Type: A Room/Bed: [facility]/ Admit/Disch: 04/23/23 06:25:15 - Institution: Case [...] Signatures Signed By: Lyle Comer RN 04/23/23 08:50NoDayton VA Medical CenterMonitor Record on 04-49-8697Oqmtnwo [id number]#1.00TIFF [facility] HospitalOperative Reporton 17-35-7789Stjgbifag Report Patient: ALETA CASTRO Age: 22 years [...] Using maximal sterile barrier technique per current [facility] guidelines including hand hygeine, Guidance (Ultrasound used [...] The patient tolerated the procedure as expected.Normal [facility] HospitalComment on above:Result Comment: Electronically Signed By: [facility] (), Cyrus Zepeda.br\Date and Time Signed: 04/23/23 07:56 ESTPatient Education - Texton 79-12-6894Fhlxqne Education - Text [place], [place] [facility] DISCHARGE INSTRUCTIONS: ANTERIOR CRUCIATE [...] any concerns. Myron Marroquin DO [facility] [address] [place] [address] Reviewed: 06-23 Revised: 03/29[facility] HospitalProheartland behavioral health services Note-Physicianon 83-39-3332Tkzvqilc Note-PhysicianPatient: ALETA CASTRO Age: 22 years Sex: [...] Daily, # 21 tab(s), Refills(s) 0, Pharmacy: [facility]/pharmacy #2345, 165, cm, 04/04/23 6:11:00 EST, Height/Length Dosing, 78, kg, 04/04/23 6:11:00 EST, Weight Dosing Percocet 5 mg-325 mg oral tablet: 1 tab(s), Oral, As Directed, 40 tab(s), Refill(s) 0, 1-2 po Q4-6hprn pain Dx: S83.512D Duration: 7 days, [facility]/pharmacy #2345, 165, cm, 04/04/23 6:11:00 EST, Height/Length Dosing, 78, kg, 04/04/23 6:11:00 EST, Weight Dosing, Home Medications (2) Active Ecotrin 325 mg Tab-EC 325 mg = 1 tab(s), Oral, Daily Percocet 5 mg-325 mg oral tablet 1 tab(s), Oral, As Directed Problem list: All Problems H/O: hypothyroidism / SNOMED CT 501791923 / Confirmed POTS (postural orthostatic tachycardia syndrome) / SNOMED CT 7129541224 / Confirmed Physical Examination Vital Signs 04/23/2023 [...] Blood Pressure 1 (more content not included)... [facility] HospitalComment on above:Result Comment: Electronically Signed By: [facility] Cyrus LEACH\.br\Date and Time Signed: 04/23/23 11:06 ESTProgress Note-PhysicianPatient: ALETA CASTRO Age: 22 years Sex: Female : 2000 Associated Diagnoses: None Author: Myron Marroquin DO Postoperative Information Procedure: L knee scope, ACL recon Preoperative Diagnosis: L ACL tear. Postoperative Diagnosis: same. Performed by: daniel. Caddie: Roby Camacho. Specimens Removed: none. Prosthesis: Arthrex. . Estimated Blood Loss: 10 ml. Complications: None. Anesthesia type: General, block.[facility] HospitalComment on above:Result Comment: Electronically Signed By: [...] Daily, # 21 tab(s), Refills(s) 0, Pharmacy: [facility]/pharmacy #2345, 165, cm, 04/04/23 6:11:00 EST, Height/Length Dosing, 78, kg, 04/04/23 6:11:00 EST, Weight Dosing Percocet 5 mg-325 mg oral tablet: 1 tab(s), Oral, As Directed, 40 tab(s), Refill(s) 0, 1-2 po Q4-6hprn pain Dx: S83.512D Duration: 7 days, [facility]/pharmacy #2345, 165, cm, 04/04/23 6:11:00 EST, [...] All Problems H/O: hypothyroidism / SNOMED CT 363251395 / Confirmed POTS (postural orthostatic tachycardia syndrome) / SNOMED CT 2657368084 / Confirmed, Active Problems (2) H/O: hypothyroidism POTS (postural orthostatic tachycardia syndrome) Histories Past Medical History: No active or resolved past medical history items have been selected or recorded. Family History: No family history items have been selected or recorded. Procedure history: Laparoscopic left ovarian R/o (1477985656). Ovarian cyst removal (960258213). Social History Social & Psychosocial Habits Alcohol [...] U beta hCG Ql Negative . Plan [place] [employer] Anesthesiologists (ASA) physical status classification: Class II. Anesthetic Preoperative Plan: Anesthesia General. Regional Adductor Canal Block Left.[facility] HospitalComment on above:Result Comment: Electronically Signed By: Urbano MENDEZ)Cyrus\.br\Date and Time Signed: 04/23/23 07:41 ESTU BetaHcg Qualon 37-87-5051RDU.beta subunit (U) [Moles/Vol]NegativeNoDayton VA Medical CenterComment on above:Performed By: #### [id number] ####[facility] [address] [place], [place] [address]Cpuhjiz for Procedure/Surgery on 80-75-4575Rasrkox for Procedure/Surgery [id number]#1.00TIFFLima City Hospital w/ Auto Diffon 79-53-8195Hrququie Absolute0.0 E9/LNormal0.0-0.2FSumma Health Barberton CampusComment on above:Performed By: #### [id number] ####[facility] [address] [place], [place] [address]Xwdltzpcc/100 WBC (Bld)0.4 %Normal0.0-2.0[facility] HospitalComment on above:Performed By: #### [id number] ####[facility] [address] [place], [place] [address]Kty Absolute0.1 E9/LNormal0.0-0.5FSumma Health Barberton CampusComment on above:Performed By: #### [id number] ####[facility] [address] [address]Syzbiqxsqid/100 WBC (Bld)1.0 %Normal0.0-8.0[facility] HospitalComment on above:Performed By: #### [id number] ####[place] [address] [address]Spsmvrqmneh distribution width (RBC) [Ratio]12.6 %Inyibj86.9-14.2FSumma Health Barberton Campus Comment on above:Performed By: #### [id number] ####[address] [address]Qszklhntxk (Bld) [Volume fraction] 39.0 %Zidkhq09.0-46.0[facility] HospitalComment on above:Performed By: #### [id number] ####[address] [address]Kjnrwfpsuc (Bld) [Mass/Vol]13.1 g/dYUmtxqj36.0-16.0[facility] HospitalComment on above:Performed By: #### [id number] ####[address] [address]Zuuqr Absolute1.4 E9/LNormal 1.0-4.0[facility] Mary[facility] HospitalComment on above:Performed By: #### [id number] ####[address] [address] Lymphocytes/100 WBC (Bld)22.2 %Ggbwpl51.0-50.0[facility] HospitalComment on above:Performed By: #### [id number] ####[place] [address] [address]YNJ (RBC) [Entitic mass]30.6 pgNormal 27.0-34.0[facility] HospitalComment on above:Performed By: #### [id number] ####[facility] [address] [address]CLHK (RBC) [Mass/Vol]33.7 g/nMXkbgfr55.4-36.0[facility] HospitalComment on above:Performed By: #### [id number] ####[place] [address] [address]CFR (RBC) [Entitic vol]91.0 sPLbmvch89.0-100.0 [facility] HospitalComment on above:Performed By: #### [id number] ####[facility] [address] [address]Yvai Absolute0.4 E9/LNormal0.2-1.0[facility] HospitalComment on above: Performed By: #### [id number] ####[address] [address]Ixlkourrw/100 WBC (Bld)5.6 %Normal4.0-14.0[facility] HospitalComment on above:Performed By: #### [id number] ####[address] [address]Sgbtdv Absolute4.6 E9/LNormal2.0-7.5FSumma Health Barberton CampusComment on above:Performed By: #### [id number] ####[address] [address]Yizmvo Auto70.8 %Nqadcy84.0-75.0[facility] HospitalComment on above:Performed By: #### [id number] ####[address] [address]Ahoffkfu656.0 E9/NGkgymh347.0-500.0[facility] HospitalComment on above:Performed By: #### [id number] ####[address] [address]Ehowxkxa mean volume (Bld) [Entitic vol]7.7 fLNormal6.4-10.8[facility] HospitalComment on above:Performed By: #### [id number] ####[facility] [address], [place] [address]NWB4.3 E12/LNormal4.3-5.9[facility] HospitalComment on above:Performed By: #### [id number] ####[facility] [address] [place], [place] [address]PAA1.5 E9/LNormal4.0-11.0 [facility] HospitalComment on above:Performed By: #### [id number] ####[facility] [address] [place] [address] Consent for Treatmenton 46-86-4063Oxfrtvr for Treatment [id number]#1.00TIFFNormalCleveland Clinic Marymount HospitalHEMATOLOGYOrdered By: SYSTEM SYSTEM on 52-59-4575Nvqggqxi Absolute0.0 E9/L Normal0.0 - 0.2 E9/LRemisol HemeBasophils/100 WBC (Bld)0.4 %Normal0.0 - 2.0 % Remisol HemeEos Absolute0.1 E9/LNormal0.0 - 0.5 E9/LRemisol HemeEosinophils/100 WBC (Bld)1.0 %Normal0.0 - 8.0 %Remisol HemeErythrocyte distribution width (RBC) [Ratio]12.6 %Tidjlk27.9 - 14.2 %Remisol HemeHematocrit (Bld) [Volume fraction] 39.0 %Qxfodh13.0 - 46.0 %Remisol HemeHemoglobin (Bld) [Mass/Vol]13.1 g/dLNormal 12.0 - 16.0 gm/dLRemisol HemeLymph Absolute1.4 E9/LNormal1.0 - 4.0 E9/LRemisol HemeLymphocytes/100 WBC (Bld)22.2 %Grpbsn68.0 - 50.0 %Remisol HemeMCH (RBC) [Entitic mass]30.6 ucXudbll49.0 - 34.0 pgRemisol HemeMCHC (RBC) [Mass/Vol]33.7 g/qEXnimjb61.4 - 36.0 gm/dLRemisol HemeMCV (RBC) [Entitic vol]91.0 aWIykcaw01.0 - 100.0 fLRemisol HemeMono Absolute0.4 E9/LNormal0.2 - 1.0 E9/LRemisol Heme Monocytes/100 WBC (Bld)5.6 %Normal4.0 - 14.0 %Remisol HemeNeutro Absolute4.6 E9/LNormal2.0 - 7.5 E9/LRemisol HemeNeutro Auto70.8 %Umxrwr53.0 - 75.0 %Remisol QlqvHdoevpns838.0 E9/YDlgswr475.0 - 500.0 E9/LRemisol HemePlatelet mean volume (Bld) [Entitic vol]7.7 fLNormal6.4 - 10.8 fLRemisol HemeRBC4.3 E12/LNormal4.3 - 5.9 E12/LRemisol HemeWBC6.5 E9/LNormal4.0 - 11.0 E9/LRemisol HemeCOVID/FLU/RSV RT-PCRon 31-74-4583RELL-CoV-2 (COVID-19) RNA QUEENIE+probe Ql (Unsp spec)Negative [facility] Osurv Other COVID/FLU/RSV RT-PCRNegativeRiverside [employer]rix Other quick Strepon 04-01-2023S. pyogenes Org specific cx Ql (Throat)NegativeRiverside Victrix Other quick TinybopWyzeTalk Victrix Other US Gallbladderon 22-94-7135NA GallbladderClinical History: Right upper quadrant pain. Diarrhea. [...] and signed by Cornelius Hernandez on 07/23/2022 1043NormalNortcity of hope, phoenixn Bucyrus Community HospitalOG PANEL 2: to 29on 05-09-2022..NormalThe [facility] [place] on above:Performed By: #### [id number] #### [facility] [address] [place] [address] Dr. Yovanny Kelly Gdln ACOG Eovlwcn95-09LtrvytSebUniversity Hospitals Portage Medical Center on above:Performed By: #### [id number] #### [facility] [address] [address] [address] Yovanny VillegasDIAGNOSIS:CommentMcKitrick Hospital on above: Result Comment: NEGATIVE FOR INTRAEPITHELIAL LESION OR MALIGNANCY.Performed By: #### [id number] #### [facility] [address] [place] [address] Dr. Yovanny VillegasMethodology:CommentMcKitrick Hospital on above: Result Comment: This liquid based ThinPrep(R) pap test was screened with the use of an image guided system.Performed By: #### [id number] #### [facility] [address] [place] [address] Dr. Yovanny VillegasNote:CommentMcKitrick Hospital on above:Result Comment: The Pap smear is a screening test designed to aid in the detection of premalignant and malignant conditions of the uterine cervix. It is not a diagnostic procedure and should not be used as the sole means of detecting cervical cancer. Both false-positive and false-negative reports do occur. .Performed By: #### [id number] #### [facility] [address] [address] [address] Yovanny VillegasPerformed by:CommentMcKitrick Hospital on above: Result Comment: Deedee Navarrete, Exhibit Preparator (ASCP)Performed By: #### [id number] #### [facility] [address] [place] [address] Dr. Yovanny VillegasReflex Criteria:CommentNormalThe Alba HospitalComment on above:Result Comment: The HPV DNA reflex criteria were not met with this specimen result therefore, no HPV testing was performed. .Performed By: #### [id number] #### [facility] [address] [place] [address] Dr. Yovanny Anthony adequacy:CommentNoParkview Health Bryan HospitalComment on above:Result Comment: Satisfactory for evaluation. Endocervical and/or squamous metaplastic cells (endocervical component) are present.Performed By: #### [id number] #### [facility] [address] [place] [address] Dr. Yovanny VillegasCHLAMYDIA/GONOCOCCUS QUEENIE (SWAB/URINE/PAPon 04-27-3731Xhbsmtivo trachomatis, NAANegativeNormalNegativeParkview Health Bryan HospitalComment on above: Performed By: #### CT/NGNA #### [facility] [address] [place] [address] Dr. Yovanny VillegasNeisseria gonorrhoeae, NAANegativeNormalNegativeParkview Health Bryan HospitalComment on above:Performed By: #### CT/NGNA #### [facility] [address] [place] [address] Dr. Yovanny VillegasVAGINITIS/VAGINOSIS DNA PROBEon 15-45-7136Biypzja speciesNegative NormalNegativeParkview Health Bryan HospitalComment on above:Performed By: #### VAGINT #### [facility] [address] [place] [address] Dr. Yoavnny VillegasGardnerella vaginalisNegativeNormalNegativeParkview Health Bryan Hospital Comment on above:Performed By: #### VAGINT #### [facility] [address] [place] [address] Dr. Yovanny VillegasTrichomonas vaginalisNegativermalNegativeParkview Health Bryan Hospital Comment on above:Performed By: #### VAGINT #### [facility] [address] [place] [address] Dr. Yovanny VillegasXR KNEE LEFT (3 VIEWS)on 42-54-3783CG KNEE LEFT (3 VIEWS) EXAMINATION: THREE XRAY [...] Signed by: Deshaun Aguilar MD 05/24/21 Final resultNormalScci Hospital LimaNo fracture or dislocation. [facility] CONSOLIDATEDEXAMINATION: THREE XRAY VIEWS OF THE LEFT KNEE 05/24/2021 8:48 pm COMPARISON: None. HISTORY: ORDERING SYSTEM PROVIDED HISTORY: pain eval occult bony injury TECHNOLOGIST PROVIDED HISTORY: pain eval occult bony injury FINDINGS: No fracture, dislocation, or focal osseous lesion is noted. No significant soft tissue abnormality seen. [facility] Deshaun Bejarano MD - 05/24/2021 EXAMINATION: THREE XRAY VIEWS OF THE LEFT KNEE 05/24/2021 8:48 pm COMPARISON: None. HISTORY: ORDERING SYSTEM PROVIDED HISTORY: pain eval occult bony injury TECHNOLOGIST PROVIDED HISTORY: pain eval occult bony injury FINDINGS: No fracture, dislocation, or focal osseous lesion is noted. No significant soft tissue abnormality seen. IMPRESSION: No fracture or dislocation. [employer] Phone: radiology Study observation (narrative)[employer] Phone: XR KNEE LEFT (3 VIEWS)Ordered By: Deshaun Aguilar on 40-67-2347[facility] Work Phone: COVID Quick Testingon 09-85-1763MakjopMnpnxdcbMnaeb Victrix Other Quick Strepon 05-01-2021. pyogenes Org specific cx Ql (Throat)PositiveRiverside Victrix Other Quick StrepNosaint mary's health center Victrix Other COVID Quick Testingon 98-73-3828ZhrjrkAlplrpynZijpg Vict[employer] Other Quhmo Fluon 04-27-0028VHIIN Ab CF (S) [Titer]Negative [place] [facility] Other FLUBV Ab CF (S) [Titer]NegativeNoLankenau Medical Center Osurv Other XR SACRUM COCCYX (MIN 2 VIEWS)on 12-06-7296BF SACRUM COCCYX (MIN 2 VIEWS)EXAMINATION: THREE XRAY VIEWS OF THE SACRUM/COCCYX 12/14/2020 3:10 am COMPARISON: None. HISTORY: ORDERING SYSTEM PROVIDED HISTORY: fall at work - hit yhqgy6te TECHNOLOGIST PROVIDED HISTORY: fall at work - hit aryah2wb FINDINGS: The sacroiliac joints are normally aligned. The visualized portions the pelvis are. There is no fracture of the sacrum or coccyx evident. IMPRESSION: No acute osseous abnormality of the sacrum or coccyx evident. Interpreted by: Loc Oswald MD Signed by: Loc Oswald MD 12/14/20 Final resultNormalMerManchester Memorial HospitalXR SACRUM COCCYX (MIN 2 VIEWS)Ordered By: David Dominguez on 65-08-3396Pu acute osseous abnormality of the sacrum or coccyx evident.[employer] Work Phone: eXAMINATION: THREE XRAY VIEWS OF THE SACRUM/COCCYX 12/14/2020 3:10 am COMPARISON: None. HISTORY: ORDERING SYSTEM PROVIDED HISTORY: fall at work - hit pawim5yt TECHNOLOGIST PROVIDED HISTORY: fall at work - hit uynvm9fi FINDINGS: The sacroiliac joints are normally aligned. The visualized portions the pelvis are. There is no fracture of the sacrum or coccyx evident. [employer] Work Phone: e, [facility] Incoming Radiant Results From [employer] - 12/14/2020 3:24 AM EDT EXAMINATION: THREE XRAY VIEWS OF THE SACRUM/COCCYX 12/14/2020 3:10 am COMPARISON: None. HISTORY: ORDERING SYSTEM PROVIDED HISTORY: fall at work - hit hyvfs9my TECHNOLOGIST PROVIDED HISTORY: fall at work - hit qqxwc3yn FINDINGS: The sacroiliac joints are normally aligned. The visualized portions the pelvis are. There is no fracture of the sacrum or coccyx evident. IMPRESSION: No acute osseous abnormality of the sacrum or coccyx evident. [employer] Work Phone: [facility] Barberton CampusClariture Work Phone: ct HEAD WO CONTRASTon 98-31-8497RO HEAD WO CONTRAST EXAMINATION: CT OF THE [...] Signed by: Maira Cruz MD 09/19/20 Final resultNormalThe Surgical Hospital at Southwoods Head WO ContrastOrdered By: Luis Carlos Fragoso on 15-04-8840Alshfgnlcqoc noncontrast CT examination of the brain.[employer] Phone: eXAMINATION: CT OF THE HEAD WITHOUT [...] abnormality of the visualized skull or soft tissues.[employer] Phone: edi, [facility] Incoming Radiant Results From [employer] - 09/19/2020 4:42 PM EDT EXAMINATION: CT [...] Unremarkable noncontrast CT examination of the brain. [employer] Phone: [facility] CampusOneSun Phone: coding Summaryon 77-94-1464Fofsvy SummaryCODING DATE: 10/27/2019 [facility] STATUS: Home PAYOR: [facility] ADMIT DX: REASON FOR [...] By: Ashley Pablo Date Saved: 10/27/2019 03:10 [facility]2019 Novel Coronavirus (CoVID-19), QUEENIE LCon 92-02-0540BISU-CoV-2, QUEENIE (COVID-19) LCNot DetectedNot [facility] Community HospitalComment on above:Order Comment: [id number] Comment: This test was developed and its performance characteristics determined by [employer]. This test has not been FDA cleared [...] detected) result in this assay. Performed At: [facility] [facility] [address], [place] [id number] Ruba Washburn MD Ph:[phone] By: #### [id number] #### [facility] (DEFAULT) [address] [place] [address] 34593Ffqavae Formson 94-15-3125Fjkyqps Forms [id number]#1.00OTGTParma Community General Hospital on 47-27-2404DPXZWxngrp TextToll Free: [phone].[facility].[email or web address]/cancer [facility] - Pqholzue[address] [place] [address]Koket: [phone]: [facility] Dfjfq[address] [place], [place] [address]Fvukt: [phone]: [facility]272 [place], [place] [address]Lzpjq: [phone]: Steve Pablo M.D., Ronaldo Marquez M.D.David Becerril M.D.Papito Sood D.O..Myriam Chaudhari M.D.Deandre Montoya M.D. Matthew Huff M.D.Date: July 15, 2017Re: Aleta Elliott WHOM IT MAY CONCERN:She was seen in our office today.Sincerely,Katelin Cardona PSR(signed electronically to expedite mailing)[facility]letown HospitalCNOVSPon 65-37-1906LPHXFSDafmb (SP) Office (HEMACL) --------ALETA GARAY ([id number]) 99 FDate Time Provider Department07/15/17 3:15 PM [...] nourishedNeuro: Gait normal.Collected: 05/15/17 104 3Resulting lab: [facility] LABORATORYValue: (NOTE)Comment: Performing Pathologist: Jo-Ann Sesay [...] list. no changes .Referring Provider: DAVID BECERRIL [[id number]]Allergies As of Date: 07/15/2017(No Known Allergies)Date Reviewed: [...] Status:Closed by DAVID BECERRIL MD on 07/17/17[facility] 67-45-7480SMUULAMFVSG ID: [id number]: David Escaleraervice: (none)Author Type: PhysicianType: Progress NotesFiled: [...] well nourishedNeuro: Gait normal.Collected: 05/15/17 1043Resulting lab: [facility] LABORATORYValue: (NOTE)Comment: Performing Pathologist: Jo-Ann Sesay [...] issues certainly could consider further testingAlfred Kavon BaroneHolzer HospitalPlatelet Func Scrnon 01-99-9068UEU/ADP Ptllwjjpl70 CT (sec) Normal<118[facility] on above:Result Comment: Results are reported as Closure Time (CT) in seconds.Performed By: #### PLTSCP ####[place] [address] [address] [place], [place] [phone]/EPI Uhqbihmid355 CT (sec)Normal<199CleKn[facility] on above:Result Comment: Results are reported as Closure Time (CT) in seconds. Performed By: #### PLTSCP ####[facility] Czbbsmpizrdr[address] AveCPauma [place], [place] [phone] Func Scr Interp(NOTE)NormalSelect Medical [facility] on above:Result Comment: Performing Pathologist: Jo-Ann Sesay [...] bleeding disorder. Performed By: #### PLTSCP ####[address] Vascular PathwaysMidway [place], [place] [phone] CBCDIF (for [facility] use only)on 70-58-5284Lnc Baso<0.03Normal<0.11CMemorial Hospital on above: Performed By: #### EVANDF ####[place] [address] [address] AveCPauma [place], [place] [phone] Mono0.53 k/uLNormal<0.87[facility] on above:Performed By: #### EVANDF ####[place] [address] [address]CPauma [place], [place] [phone] Neut2.59 k/uL Normal1.45-7.50[facility] on above:Performed By: #### EVANDF ####[address] [place] [place], [place] [phone]/100 WBC Auto (Bld)0.4 %NormalSelect Medical Cleveland Clinic Rehabilitation [facility], [place] on above:Performed By: #### EVANDF ####[address] AvMid[address] [place], [place] [phone] DiffNormal [facility] on above:Performed By: #### EVANDF ####[address] [phone] 10*3/uLNormal<0.46[facility] on above:Performed By: #### EVANDF ####[place] [address] [address] [place], [place] [phone]/100 leukocytes1.5 %Normal [facility] on above:Performed By: #### EVANDF ####[address] Av[address] [place], [place] [phone] distribution width Auto Ratio (RBC)12.2 %Ltvryu13.5-15.0 [facility] on above:Performed By: #### RACHEL ####[address] Av[address] [place], [place] [phone] (RBC)4.15 10*6/uLNormal3.90-5.20[facility] Comment on above:Performed By: #### RCBCDF ####[address] Av[address] [place], [place] [phone] (RBC)0.0 /100 WBCNormal 0[facility] Hospitalment on above:Performed By: #### RCBCDF ####[address] Av[address] [place], [place] [phone] (RBC)10*6/uLNormal<0.01[facility] on above:Performed By: #### RCBCDF ####[address] [phone] (HCT)39.4 %Wvvpma94.0-46.0 [facility] CenterComment on above:Performed By: #### RCBCDF ####[address] [phone] [address]Hemoglobin mass conc (Bld)12.8 g/nCRcurgw87.5-15.5CMemorial Hospital on above:Performed By: #### RCBCDF ####[address] [phone] 10*3/uLNormal1.00-4.00[facility] on above:Performed By: #### RCBCDF ####[address] [phone]/100 mqyiidhjmt39.9 %NormalSelect Medical [facility] Clinic [facility] [place] on above:Performed By: #### RCBCDF ####[address] 48621422-098-6765INW81.8 pGNormal 26.0-34.0[facility] on above:Performed By: #### CHONBCDF ####[place] [phone] [phone] mass conc (RBC)32.5 g/jMXdzszb21.5-36.0[facility] Comment on above:Performed By: #### EVANDF ####[place] [phone] jFBhhbho92.0-100.0[facility] on above:Performed By: #### EVANDF ####[place] [phone]/100 srizkmgvrh64.6 %NormalSelect Medical [facility] Clinic Rehabilitation [facility], [place] on above:Performed By: #### EVANDF ####[place] [phone]/100 WBC Auto (Bld)56.6 %NormalSelect Medical [facility] Clinic [facility] [place] on above:Performed By: #### CHONBCDF ####[place] [phone] mean volume (PMV)10.2 fLNormal9.0-12.7CMemorial Hospital on above:Performed By: #### CHONBCDF ####[place] [phone] 10*3/cSIbeubm738-323LdtbjhwtzSamaritan North Health Center Comment on above:Performed By: #### EVANDF ####[place] [phone] (Leukocytes)4.58 10*3/uLNormal 3.70-11.00[facility] on above:Performed By: #### EVANDF ####[address] [place], [place] [phone] 85-62-7272IGHSKetoef TextToll Free: [phone].[email or web address]/cancer [facility] Wzgkfqnd[address] Bret [place]West [place], [place] [address]Wigqc: [phone]: [facility] [address] [place], [place] [address]Wskvl: [phone]: [facility] Nmfbjul[address] [place], [place] [address]Dfifk: [phone]: Steve Pablo M.D., Jonna Castro M.D.Papito Sood D.O..Carin Hoover M.D. FACROSaju A. Rajan, M.D.Date: April 29, 2017Re: Aleta RuizvipulSKYLER WHOM IT MAY CONCERN:She was seen in our office today.Sincerely,Karly Pizarro Psr(signed electronically to expedite mailing)[facility]letown HospitalCNOVSPon 30-04-2406UJOEQEUorrs (SP) Office (HEMACL) --------BEVVIPULSUMMER ([id number]) 99 FDate Time Provider Department04/29/17 2:30 PM [...] patientand her mother at length. Would check DDX448 at this time, further testingbased on results.1. [...] (HCC) [D69.1]Order(s):PLATELET FUNCTION SCREEN [SQPLTSCP] Order #: [id number] FUTURE CBC + DIFF (FOR [facility] USE) [SQRCBCDF] Order #: [id number] FUTUREDisposition: Return in about 6 weeks (around [...] Status:Closed by DAVID BECERRIL MD on 04/29/17Normal [facility] CenterPROGRESSon 81-22-5781LCHGQGHVQNH ID: [id number]: David Escaleraervice: (none)Author Type: PhysicianType: Progress NotesFiled: [...] and her mother at length. Would check DCK313 at this time, furthertesting based on results.1. 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, choice of management likely to be influenced by history ofPOTSAlfred Chery Barone [facility] Vital Signs Date TimeVital SignValuePerforming TgfnpjaxuJnkyjlpo06-05-0664 14:02-0500Body mass index (BMI) [Ratio]30 kg/m2Pretty ARELLANO Work Phone: [facility] HospitalDugbuoqgnx43-44-8932 14:02-0500Body .29 kgPretty ARELLANO Work Phone: [facility] HospitalZhqbeexcnt42-99-5537 14:02-0500Diastolic blood mm[Hg]Pretty ARELLANO Work Phone: [facility] HospitalRjvzarpizi09-69-1570 14:02-0500Systolic blood rexfqyei34 mm[Hg]Pretty ARELLANO Work Phone: [phone] [place], [place] [address]Zgfzittlue10-74-7466 13:04-0400Body mass index (BMI) [Ratio]29.59 kg/t4Egtxx William DO Work Phone: [phone] [place], [place] [address]Jlapinicop85-62-6007 13:04-0400Body ssiqzo01.2 kg Doc William DO Work Phone: 1(674)[facility] [place], [place] [address]Lxuebbozud42-20-0186 13:04-0400Diastolic blood pnsezvev41 mm[Hg]Doc William DO Work Phone: 1(049)[facility] [place], [place] [address]Jsdqxekbdc24-41-1551 13:04-0400Systolic blood mm[Hg]Doc William DO Work Phone: 1(623)[facility] [place], [place] [address]Wamuvylcso85-01-7319 13:57-0400Body mass index (BMI) [Ratio]29.42 kg/g6IomsshwsLuna Steen TELEVISION NEWSCAST DIRECTOR Work Phone: 1(653)[address] [place], [place] 6339010-08-2025 13:57-0400Body odumua16.75 kgLuna Steen TELEVISION NEWSCAST DIRECTOR Work Phone: 1(686)[facility] [place], [place] [address]Lhqyuwbygu88-89-8870 13:57-0400Diastolic blood kyewntpx27 mm[Hg]Luna Steen TELEVISION NEWSCAST DIRECTOR Work Phone: 1(185)[facility] [place], [place] [address]Wwbglatgcb19-05-0445 13:57-0400Systolic blood csbnrdlu889 mm[Hg]Luna Steen TELEVISION NEWSCAST DIRECTOR Work Phone: 1(344)[address] [place], [place] 6339009-24-2025 14:07-0400Body mass index (BMI) [Ratio]28.84 kg/e4Zvrcr William DO Work Phone: 1(949)[facility] [place], [place] [address]Pgdztnkjlh75-31-3390 14:07-0400Body qwtwbe63.2 kg Doc William DO Work Phone: 1(078)[facility] [place], [place] [address]Lzgagblxdp26-36-8762 14:07-0400Diastolic blood cajqoyto41 mm[Hg]Doc William DO Work Phone: 1(317)[facility] [place], [place] [address]Opfukodqdv70-05-0919 14:07-0400Systolic blood ahfbaubr557 mm[Hg]Doc William DO Work Phone: 1(830)125-[address] [place], [place] [address]Uopmcfjknw95-69-2910 14:04-0400Body mass index (BMI) [Ratio]29.95 kg/n5Gbmswjcl Enio TELEVISION NEWSCAST DIRECTOR Work Phone: [phone] includes the [facility] HospitalUgdegoehbc93-77-4399 14:04-0400Body uijxgn97.15 kgLuna Enio TELEVISION NEWSCAST DIRECTOR Work Phone: [phone] [place], [place] [address]Iqxadsxdpz74-70-7171 14:04-0400Diastolic blood ynkaygwk25 mm[Hg]Luna Enio TELEVISION NEWSCAST DIRECTOR Work Phone: 1(828)309-[address] [place], [place] [address]Emlnwribfz48-05-7327 14:04-0400Systolic blood pjkaiwxo527 mm[Hg]Luna Enio TELEVISION NEWSCAST DIRECTOR Work Phone: 1(411)224-[address] [place], [place] [address]Lpdsgkuson60-02-9542 14:39-0400Body mass index (BMI) [Ratio]28.49 kg/m2Pretty Chaidez PA Work Phone: 1(717)441-[address] [place], [place] [address]Nbajmjhleu49-99-9140 14:39-0400Body ceblcr31.3 kg Pretty Chaidez PA Work Phone: 1(258)034-[address] [place], [place] [address]Bjsimhgwov77-79-9541 14:39-0400Diastolic blood aegtmcxo55 mm[Hg]Pretty Chaidez PA Work Phone: 1(112)671-[address] [place], [place] [address]Izjxvdttnm36-99-5041 14:39-0400Systolic blood thikeibw806 mm[Hg]Pretty Chaidez PA Work Phone: 1(529)718-[address] [place], [place] [address]Jhlctgeeme10-86-9960 15:34-0400Body mass index (BMI) [Ratio]28.29 kg/i9Ivzel William DO Work Phone: 1(140)898-[address] [place], [place] [address]Kekbzldnpe82-89-6965 15:34-0400Body ewbdai30.75 kgCorey William DO Work Phone: [phone]-Count includes the [facility] HospitalFlqemovkcq33-73-7943 15:34-0400Diastolic blood uzilkylx44 mm[Hg]Doc William DO Work Phone: 1(580)483-[address] [place] [address]-16-2025 15:34-0400Systolic blood mm[Hg]Dco William DO Work Phone: [facility] HospitalXrdhnlqdbl73-37-8117 14:27-0400Body mass index (BMI) [Ratio]30.21 kg/j6Weybf William DO Work Phone: [facility] HospitalJwjlqxjkfu37-59-9162 14:27-0400Body pagmdl87.83 kgCorey William DO Work Phone: 1(962)660-[address] [place], [place] [address]Uxpmumjxqt66-22-9282 14:27-0400Diastolic blood mm[Hg]Doc William DO Work Phone: [facility] HospitalLgjnbjquvn39-24-1087 14:27-0400Systolic blood qxqzzryy295 mm[Hg]Doc William DO Work Phone: [facility] HospitalBphwnpowmg97-31-6723 15:41-0500Body ssymac605.6 cmDavid Pocos DO Work Phone: [facility] HospitalLmzjhzzwba81-06-4158 15:41-0500Body mass index (BMI) [Ratio]30.21 kg/e8Fpykh Pocos DO Work Phone: [facility] HospitalYccxadysbg54-46-0601 15:41-0500Body uipbmw60.83 kgDavid Pocos DO Work Phone: [facility] HospitalPkpxckfyre67-73-4420 15:26-0500Body qgigij754.6 cmEtyshawn Payne MD Work Phone: [facility] HospitalWwfhkqclae79-18-3588 15:26-0500Body mass index (BMI) [Ratio]30.21 kg/e1OydvoxRosalie Payne MD Work Phone: [facility] HospitalEgozammmyo15-39-2708 15:26-0500Body rjnohg75.83 kgRosalie Payne MD Work Phone: [facility] HospitalZooicmyaqj58-71-8437 15:26-0500Heart rate88 /min Rosalie Payne MD Work Phone: [facility] HospitalDmcghwsrwz01-10-5157 15:26-5084CbV5% (BldA) [Mass fraction]98 %Rosalie Payne MD Work Phone: [facility] HospitalKaanwubzvr64-09-0118 08:00-0400Body .6 cmKelvin Schwartz DO Work Phone: [facility] HospitalLnkkbwkvea80-88-4540 08:00-0400Body mass index (BMI) [Ratio]30.9 kg/k4BktgcKelvin Schwartz DO Work Phone: [facility] HospitalLxacflqypq03-61-2435 08:00-0400Body .65 kgKelvin Schwartz DO Work Phone: [facility] HospitalKxczwpayky88-16-6715 14:25-0400Diastolic blood dgzgieod52 mm[Hg]MD Rosalie Payne Work Phone: [phone]06-17-2024 14:25-0400 Heart rate80 /minMD Rosalie Payne Work Phone: 1(357)[address] [place], [place] 9029106-17-2024 14:25-0400 Respiratory rate18 /minMD Rosalie Payne Work Phone: 1(731)[address] [place], [place] 9029106-17-2024 14:25-0400 SaO2% (BldA) [Mass fraction]100 %MD Rosalie Payne Work Phone: 1(197)[address] [place], [place] 9029106-17-2024 14:25-0400 Systolic blood updrbmys839 mm[Hg]MD Rosalie Payne Work Phone: 1(238)[facility] [place], [place] 0467306-17-2024 11:31-0400 Body dzqokl846.1 cmMD Rosalie Payne Work Phone: 1(012)[address] [place], [place] 9029106-17-2024 11:31-0400 Body ekkfnhexqph20.4 [degF]MD Rosalie Payne Work Phone: 1(530)[address] [place], [place] 9029106-17-2024 11:31-0400 Body bbfwos11.11 kg Rosalie Payne Work Phone: 1(640)[address] [place], [place] 9029105-09-2024 14:21-0400 Body biwfny160.1 cmOhio[facility]05-09-2024 14:21-0400Body mass index (BMI) [Ratio]28.3 kg/b9SzynkxfjtOhiohealth Doctors Hospital05-09-2024 14:0400Body dkrzig52.11 kgOhiohealth Doctors Hospital05-09-2024 14:-0400Diastolic blood lwcjysvg89 mm[Hg][facility] 07-25-2023 14:21-0400Heart rate81 /minOhiohealth Doctors Hospital 07-25-2023 14:-0400Systolic blood nioxxyyp171 mm[Hg][facility]01-17-2024 14:55-0500Diastolic blood ziclqvqh39 mm[Hg]Myron Marroquin [address]01-17-2024 14:55-0500Heart vwgc233 /minDavid Daniel [address]01-17-2024 14:55-0500Mean blood muoqbnzr575 mm[Hg]Myron Marroquin [address]01-17-2024 14:55-0500 Systolic blood czolxygd257 mm[Hg]Myron Marroquin [address]01-17-2024 14:53-0500Heart rate98 /minDavid Vaniaos [address] [place], [place] 9547101-17-2024 14:53-0143PyR0% (BldA) [Mass fraction]99 %Myron Marroquin [address] [place], [place] 9547101-17-2024 14:53-0500 Diastolic blood mm[Hg]Myron Marroquin [address]01-17-2024 14:53-0500Mean blood olwocwfp287 mm[Hg]Myron Marroquin [address]01-17-2024 14:53-0500 Systolic blood ewreayjz767 mm[Hg]Myron Pocos [facility]01-17-2024 14:52-0500 Respiratory rate16 /minDavid Pocos [facility]01-15-2024 10:45-0500Body bcxxix173.1 cmAmanda Kristine Other [employer] Other 01-15-2024 10:45-0500Body mass index (BMI) [Ratio] 28.29 kg/b2Ocshpk Kristine Other [employer] Other 01-15-2024 10:45-0500Body .1 [degF]Destinee Kristine Other [employer] Other 01-15-2024 10:45-0500Body eaxxun02.11 kgAmanda Kristine Other [facility] Other 01-15-2024 10:45-0500Respiratory rate18 /minAmanda Kristine Other [employer] Other 01-15-2024 10:45-3584GmL1% (BldA) [Mass fraction]99 % Destinee Kristine Other [employer] Other 06-06-2022 11:25-0400Body unfacf340.1 cmPamela Martha Other [employer] Other 06-06-2022 11:25-0400Body mass index (BMI) [Ratio] 27.12 kg/w8Zinlay Martha Other [employer] Other 06-06-2022 11:25-0400Body mdhinqyzsos85.6 [degF]aCrlie Thomas Other [facility] [employer] Other 06-06-2022 11:25-0400Body ubhddp40.94 kgCarlie Thomas Other [facility] [employer] Other 06-06-2022 11:25-0400Respiratory rate18 /minCarlie Thomas Other [facility] [employer] Other 06-06-2022 11:25-0195JcW2% (BldA) [Mass fraction]97 % Carlie Thomas Other [facility] [employer] Other 03-09-2022 20:36-0500Body mzvamzqlhtz68.7 [degF]Artis Yoder DO Work Phone: [facility] CampusClaritureYpdhdd50-46-4457 20:36-0500Diastolic blood iwpertsa25 mm[Hg]Artis Yoder DO Work Phone: [facility] CampusClaritureLoxlzy84-47-7164 20:36-0500Heart ykju790 /min Artis Yoder DO Work Phone: [facility] CampusClaritureLjzvhd41-88-1437 20:36-0500Respiratory rate16 /minArtis Yoder DO Work Phone: [facility] CampusClaritureBdskra47-46-1465 20:36-1982PmX0% (BldA) [Mass fraction]97 %Artis Herithad DO Work Phone: [facility] CampusClaritureKdonox40-07-3405 20:36-0500Systolic blood wyjfvvuo825 mm[Hg]Artis Yoder DO Work Phone: [facility] CampusClaritureGmnjiv24-25-3498 13:10-0500Body lnajvt874.1 cm Adriana Evangelista Other [facility] [employer] Other 02-24-2022 13:10-0500Body mass index (BMI) [Ratio] 27.12 kg/l2Ophbvuxuj Jean Carlos Other [employer] Other 02-24-2022 13:10-0500Body rqevkuzolbz31.8 [degF] Adriana Garciaault Other [employer] Other 02-24-2022 13:10-0500Body .94 kgStjen Evangelista Other [employer] Other 02-24-2022 13:10-0500Diastolic blood ggppwkva88 mm[Hg] Adriana Garciaault Other [employer] Other 02-24-2022 13:10-0500Respiratory rate18 /minSfeliz Garciaault Other [employer] Other 02-24-2022 13:10-1345RuO8% (BldA) [Mass fraction]99 % Adriana Garciaault Other [employer] Other 02-24-2022 13:10-0500Systolic blood wsecytff578 mm[Hg] Adriana Jean Carlos Other [employer] Other 02-14-2022 11:40-0500Body okewjq390.1 cmPamelsridhar Thomas Other [employer] Other 02-14-2022 11:40-0500Body mass index (BMI) [Ratio] 26.62 kg/a1Jicmfs Martha Other [employer] Other 02-14-2022 11:40-0500Body kdiqaabrbpi20.6 [degF]Carlie Thomas Other [employer] Other 02-14-2022 11:40-0500Body xgbqii65.58 kgCarlie Thomas Other [employer] Other 02-14-2022 11:40-0500Respiratory rate18 /minCarlie Thomas Other [employer] Other 02-14-2022 11:40-6122KoZ4% (BldA) [Mass fraction]99 % Carlie Thomas Other [employer] Other 01-21-2022 12:00-0500Body kbuokc277.1 cmCreyes Ashley Other [employer] Other 01-21-2022 12:00-0500Body mass index (BMI) [Ratio] 26.62 kg/e5RqzydpSandeep Ramirez Other [employer] Other 01-21-2022 12:00-0500Body rmglyxixnfa22.6 [degF]Sandeep Ramirez Other [employer] Other 01-21-2022 12:00-0500Body uoramc69.58 kgSandeep Ramirez Other [employer] Other 01-21-2022 12:00-4357IlM7% (BldA) [Mass fraction]98 % Sandeep Ramirez Other [employer] Other 09-28-2021 23:25-0400Diastolic blood mzgmibwj45 mm[Hg] David Dominguez MD Work Phone: [facility] [employer] Work Phone: 1(322) 453-207209-28-2021 23:25-0400Systolic blood ebdkpxek069 mm[Hg] David Dominguez MD Work Phone: [phone] [employer] Work Phone: 1(983) 242-396209-28-2021 23:23-0400Body .1 Mira Dominguez MD Work Phone: [facility] [employer] Work Phone: 1(941)142-491209-46932160-10-6544 23:23-0400Body mass index (BMI) [Ratio] 26.63 kg/t4XokoihuDavid Dominguez MD Work Phone: [phone] [employer] Work Phone: 1(372) 219-428509-28-2021 23:23-0400Body vbniwgwawge95.29 [degF] David Dominguez MD Work Phone: [facility] [employer] Work Phone: 1(768) 795-940709-28-2021 23:23-0400Body ohekih18.58 kgDavid Dominguez MD Work Phone: [facility] [employer] Work Phone: 1(238) 942-635609-28-2021 23:23-0400Heart rate79 /Sharon Dominguez MD Work Phone: [phone] [employer] Work Phone: 1(259) 977-137909-28-2021 23:23-0400Respiratory rate14 /Sharon Dominguez MD Work Phone: [facility] [employer] Work Phone: 1(403) 292-752009-28-2021 23:23-6366OdN8% (BldA) [Mass fraction]99 % David Dominguez MD Work Phone: [facility] [employer] Work Phone: 1(192) 441-192307-05-2021 15:56-0400Body pdugzumfquf09.6 [degF][facility] [employer] Work Phone: 1(106) 749-480307-05-2021 15:56-0400Diastolic blood bujzhjhc33 mm[Hg] [employer] Work Phone: 1(588) 473-668707-05-2021 15:56-0400Heart elzc233 /min[employer] Work Phone: 1(108) 201-131207-05-2021 15:56-0400Respiratory rate16 /minMeMeMe Work Phone: 1(747) 233-275907-05-2021 15:56-1133ZrY2% (BldA) [Mass fraction]100 % [employer] Work Phone: 1(952) 375-758507-05-2021 15:56-0400Systolic blood vjhbbgen603 mm[Hg] [employer] Work Phone: Encounters Encounter DateEncounter TypeCare ProviderFacilityStart: 01-23-2025 End: 33-69-1148Niijzrmrj Result EncounterCorey William DO Work Phone: noms External Department UnsolicitedStart: 01-23-2025 End: 82-77-7302Gutbetbsw Result EncounterCorey William DO Work Phone: noms External Department UnsolicitedStart: 01-20-2025 End: 41-30-6045Xcrgts Herson ARELLANO Work Phone: [facility] [place] [facility]BGYNStart: 01-20-2025 End: 10-60-9897Rxjzgr Herson ARELLANO Work Phone: [facility] [place] [facility]BGYNStart: 01-20-2025 End: 34-07-3111Sbyghuagw Result EncounterCorey William DO Work Phone: [facility] External Department UnsolicitedStart: 01-20-2025 End: 02-98-0904Flctvhsz flow Arsenio ARELLANO Work Phone: [facility]BGYNComment on above:Third trimester ([facility] 35 weeks gestation of ([facility])Start: 01-20-2025 End: 04-75-2735wamvbltmoyQOE RAMEYNot AvailableStart: 01-11-2025 End: 26-26-9522Occkvsxrr Result EncounterCorey William DO Work Phone: [facility] External Department UnsolicitedStart: 01-11-2025 End: 78-67-4267Aapvesayd Result EncounterCorey William DO Work Phone: [facility] External Department UnsolicitedStart: 01-05-2025 End: 94-51-4874Twkuar flowsheetCorey William DO Work Phone: [facility] [place] [facility]YNStart: 01-05-2025 End: 46-55-5151Ohisjf flowsheetCorey William DO Work Phone: [facility]YNStart: 01-05-2025 End: 02-46-2498Hfrznlra flow sheetCorey William DO Work Phone: [facility] [place] [facility]BGYNComment on above:Third trimester ([facility]); 33 weeks gestation of ([facility]Start: 01-05-2025 End: 23-98-8009bpaubjpbtyEGHBG FAZIONot AvailableStart: 01-02-2025 End: 08-52-3631Raultyqpp Result EncounterGeneric External Data ProviderNOMS External Department UnsolicitedStart: 01-02-2025 End: 24-86-2840Hgjzrdvxb Result EncounterGeneric External Data ProviderNOMS External Department UnsolicitedStart: 12-26-2024 End: 44-49-1536Zjcmfwmuy Result EncounterGeneric External Data ProviderNOMS External Department UnsolicitedStart: 12-26-2024 End: 67-91-0366Uvektgkmw Result EncounterGeneric External Data ProviderNOMS External Department UnsolicitedStart: 12-23-2024 End: 20-66-5439Hztoms Cody Steen NP Work Phone: [facility] [place] [facility]BGYNStart: 12-23-2024 End: 41-32-3981Wtycdq Cody Steen NP Work Phone: [facility] [place] [facility]BGYNStart: 12-23-2024 End: 01-61-3321Ilhtwrni flow sheetLuna Steen TELEVISION NEWSCAST DIRECTOR Work Phone: [facility] [place] OBGYNComment on above:Third trimester ([facility]); 31 weeks gestation of ([facility])Start: 12-23-2024 End: 40-50-9947qlcwdowkzvURCHJAUN EBERLYNot AvailableStart: 12-09-2024 End: 54-26-6621Worlss flowsheetCorey William DO Work Phone: [facility] [place] [facility]BGYNStart: 12-09-2024 End: 65-11-9041Zupuus flowsheetCorey William DO Work Phone: [facility]BGYNStart: 12-09-2024 End: 64-13-7603Igcvjzti flow sheetCorey William DO Work Phone: [facility] [place] OBGYNComment on above:Third trimester ([facility]); 29 weeks gestation of ([facility]); Yeast infectionStart: 12-09-2024 End: 74-95-4417wohjikhuasJTVPS FAZIONot AvailableStart: 11-27-2024 End: 84-70-4271vphpgxjwvpLZRQZDayton Children's Hospitaltart: 11-25-2024 End: 83-01-6875Ugfogp Cody Steen TELEVISION NEWSCAST DIRECTOR Work Phone: [facility] [place] [facility]BGYNStart: 11-25-2024 End: 31-44-9868Joqdcd flowsRuss Steen TELEVISION NEWSCAST DIRECTOR Work Phone: [facility] [place] OBGYNStart: 11-25-2024 End: 33-86-9698Bybvjqvm flow sheetLuna Steen TELEVISION NEWSCAST DIRECTOR Work Phone: [facility] OBGYNComment on above:Second trimester ([facility]); 27 weeks gestation of ([facility]); Evan's diseaseStart: 11-25-2024 End: 85-51-9464odpvpejqzfNAXPVFVB EBERLYNot AvailableStart: 11-24-2024 End: 50-31-4345Jepllauir Result EncounterGeneric External Data ProviderNOMS External Department UnsolicitedStart: 11-24-2024 End: 77-00-1756Rdodxnmzh Result EncounterGeneric External Data ProviderNOMS External Department UnsolicitedStart: 11-12-2024 End: 05-19-6099Pezezburv Result EncounterGeneric External Data ProviderNOMS External Department UnsolicitedStart: 11-12-2024 End: 69-54-7817Xajmdudgc Result EncounterGeneric External Data ProviderNOMS External Department UnsolicitedStart: 11-03-2024 End: 22-47-3503Rngsapuhp Result EncounterGeneric External Data ProviderNOMS External Department UnsolicitedStart: 11-03-2024 End: 30-79-2513Fpopqjoar Result EncounterGeneric External Data ProviderNOMS External Department UnsolicitedStart: 10-28-2024 End: 69-70-9473Izjwhpy encounter procedurePretty ARELLANO Work Phone: NOMS HealthcareStart: 10-28-2024 End: 12-48-1325Hagrbkxx flow Arsenio ARELLANO Work Phone: [facility] [place] OBGYNComment on above:Second trimester ([facility]); 23 weeks gestation of ([facility]); Diabetes mellitus screening; STD exposure; Well woman exam with routine gynecological exam; Heart palpitationsStart: 10-28-2024 End: 99-79-3876jsfvnamaldTMK RAMEYNot AvailableStart: 10-28-2024 End: 40-63-4020Tolutb Herson ARELLANO Work Phone: noMS [place] OBGYNStart: 10-28-2024 End: 54-53-0284Tgguxv Herson ARELLANO Work Phone: [facility] [place] [facility]BGYNStart: 10-28-2024 End: 05-11-5075Utotmohnq Result EncounterGeneric External Data ProviderNOMS External Department UnsolicitedStart: 10-28-2024 End: 68-49-9559Kmliuhrh Result EncounterKrselene Enio TELEVISION NEWSCAST DIRECTOR Work Phone: noms External Department UnsolicitedStart: 10-06-2024 End: 25-20-9518Zewqeafnp Result EncounterCorey William DO Work Phone: noms External Department UnsolicitedStart: 10-06-2024 End: 23-65-2373Bxbgzwemx Result EncounterCorey William DO Work Phone: NOSZ External Department UnsolicitedStart: 09-30-2024 End: 76-52-2192Arribmfa flow sheetCorey William DO Work Phone: noms BCP OBComment on above:19 weeks gestation of ([facility]); Second trimester ([facility])Start: 09-30-2024 End: 30-54-2745tgroomdhbvAAEOI FAZIONot AvailableStart: 09-28-2024 End: 95-91-4424Bwdzrxfav Result EncounterGeneric External Data ProviderNOMS External Department UnsolicitedStart: 09-28-2024 End: 03-71-8321Gqbaelzbv Result EncounterGeneric External Data ProviderNOMS External Department UnsolicitedStart: 09-02-2024 End: 73-01-9325Itcfuhqu flow Arsenio ARELLANO Work Phone: noms BCP OBComment on above:Second trimester ([facility]); 15 weeks gestation of ([facility]); Screening, , for anatomic survey ([facility])Start: 09-02-2024 End: 17-87-5990vzlqrwmrtlODW RAMEYNot AvailableStart: 09-02-2024 End: 43-10-7097Dkisot Herson ARELLANO Work Phone: NOMS BCP OBStart: 09-02-2024 End: 52-91-5549Mqqzqm Herson ARELLANO Work Phone: NOMS BCP OBStart: 08-31-2024 End: 11-20-4777Qurmirxmw Result EncounterCorey William DO Work Phone: noms External Department UnsolicitedStart: 08-31-2024 End: 97-97-3014Abaoxznky Result EncounterCorey William DO Work Phone: noms External Department UnsolicitedStart: 08-05-2024 End: 73-68-6627Hpizln flowsheetCorey William DO Work Phone: noms BCP OBStart: 08-05-2024 End: 79-02-8733Kvolmc flowsheetCorey William DO Work Phone: noms BCP OBStart: 08-05-2024 End: 19-84-6261Hobhnjix flow sheetCorey William DO Work Phone: noms BCP OBComment on above:First trimester ; 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 ; 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)Start: 08-05-2024 End: 89-69-7329maitfkskqeHMRMX FAZIONot AvailableStart: 07-18-2024 End: 39-05-6012Ktkkrghka Result EncounterGeneric External Data ProviderNOMS External Department UnsolicitedStart: 07-18-2024 End: 82-74-8881Qpnulzdam Result EncounterGeneric External Data ProviderNOMS External Department UnsolicitedStart: 07-16-2024 End: 81-85-3192Ngqrom outpatient visit 5 minutesNoms Bcp Ob William NurseNOMS BCP OBComment on above:GA: 0a2uRxkvi: 07-16-2024 End: 29-24-0264dvzicgpjioRJELL FAZIONot AvailableStart: 02-26-2024 End: 20-34-3657Nkrkwcg encounter procedureDavid A Pocos DO Work Phone: noms NB ORTHOComment on above:S/P reconstruction of ACL of left knee using bone-patellar tendon-bone autograft (Primary Dx)Start: 02-26-2024 End: 60-13-4169zazpzdyphmHFIWE A POCOSNot AvailableStart: 02-19-2024 End: 84-36-8234Mxxsyd outpatient visit 25 minutesEdjay Payne MD Work Phone: NOMS CI FM 100Comment on above:Subclinical hypothyroidism (CMS/HCC) (Primary Dx); 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CMS/HCC); Cigarette smoker; Non morbid obesity due to excess calories; Postural orthostatic tachycardia syndrome (POTS); Abnormal bleeding in menstrual cycleStart: 02-19-2024 End: 61-15-5669qxzbqdoipeJARBFBCristal Parisi AvailableStart: 02-19-2024 End: 89-60-6867Ejelfg Rodriguez Payne MD Work Phone: NOMS CI FM 100Start: 02-19-2024 End: 73-23-3605Yvjwgb Rodriguez Payne MD Work Phone: NOMS CI FM 100Start: 12-27-2023 End: 11-09-8292cewnyjtewhJupu J Spriggs PT Work Phone: NOMS FB PTComment on above:Acute pain of left knee (Primary Dx); Status post arthroscopic reconstruction of anterior cruciate ligament of left knee using quadricepstendon autograftStart: 12-27-2023 End: 24-68-6679Lnijrw Za Nagy PT Work Phone: NOMS FB PTStart: 12-27-2023 End: 12-67-6372Ilyqgj Za Nagy PT Work Phone: NOAY FB PTStart: 12-24-2023 End: 94-54-1527gizbbbfeaoAmsfafzd Wright BOTTOM LIQUOR ATTENDANT Work Phone: NOMS FB PTComment on above:Acute pain of left knee (Primary Dx); Status post arthroscopic reconstruction of anterior cruciate ligament of left knee using quadricepstendon autograftStart: 12-24-2023 End: 95-87-0685Ghafrc VidSchoolkearaMasher Mediamaribel Vieira BOTTOM LIQUOR ATTENDANT Work Phone: NOMS FB PTStart: 12-24-2023 End: 60-61-8717Drydok VidSchoolkearaMasher Mediamaribel Vieira BOTTOM LIQUOR ATTENDANT Work Phone: NOSF FB PTStart: 12-17-2023 End: 02-72-2632qrbizpbpyoHlch Pari Lilo PT Work Phone: NOMS FB PTComment on above:Acute pain of left knee (Primary Dx); Status post arthroscopic reconstruction of anterior cruciate ligament of left knee using quadricepstendon autograftStart: 12-17-2023 End: 37-38-3468Toifhk flowsheetKystuart Yañez Lilo PT Work Phone: NOMS FB PTStart: 12-17-2023 End: 53-34-0183Uafnzf Za Yañez Lilo PT Work Phone: NOBH FB PTStart: 12-09-2023 End: 55-77-7030Clatur Isabel Schwartz DO Work Phone: NOMS SWS ORTHOAOStart: 12-09-2023 End: 97-92-9811Ipgzun Isabel Schwartz DO Work Phone: [phone] SWS ORTHOAOStart: 12-09-2023 End: 43-17-7790Trqlcta encounter Hans Schwartz DO Work Phone: NOMS SWS ORTHOAOComment on above:Left knee injury, initial encounter (Primary Dx)Start: 12-03-2023 End: 11-72-3533igbimkrlonLerfzedt Vieira BOTTOM LIQUOR ATTENDANT Work Phone: NOMS FB PTComment on above:Acute pain of left knee (Primary Dx); Status post arthroscopic reconstruction of anterior cruciate ligament of left knee using quadricepstendon autograftStart: 12-03-2023 End: 98-99-4016Wxrurc Nikita Vieira BOTTOM LIQUOR ATTENDANT Work Phone: NOMS FB PTStart: 12-03-2023 End: 90-36-3032Hoiqni Nikita Vieira BOTTOM LIQUOR ATTENDANT Work Phone: NOMS FB PTStart: 11-19-2023 End: 71-01-1306hhtngpplipWoqnpj Tattersall PTANOMS FB PTComment on above:Acute pain of left knee (Primary Dx); Status post arthroscopic reconstruction of anterior cruciate ligament of left knee using quadricepstendon autograftStart: 11-19-2023 End: 01-39-1513Dadrbd flowsheetJennifer Tattersall PTANOMS FB PTStart: 11-19-2023 End: 47-20-6960Xpnjrk flowsheetMariah Tattersall PTANOMS FB PTStart: 11-12-2023 End: 43-44-7047waomixwntvCjhqizjd Wright BOTTOM LIQUOR ATTENDANT Work Phone: noms FB PTComment on above:Acute pain of left knee (Primary Dx); Status post arthroscopic reconstruction of anterior cruciate ligament of left knee using quadricepstendon autograftStart: 11-12-2023 End: 93-06-2535Amkmbk Nikita Vieira BOTTOM LIQUOR ATTENDANT Work Phone: noms FB PTStart: 11-12-2023 End: 74-69-1105Vlmqcp VidSchoolkearaBrew Solutionsbrian Vieira BOTTOM LIQUOR ATTENDANT Work Phone: noMS FB PTStart: 08-24-5417Ogs-patient / Non-visitMD Rosalie Payne Work Phone: [facility] Work Phone: Start: 09-02-2023 End: 48-04-8037Vtjiasyre to same day surgery centerMD Roslaie Payne Work Phone: [facility] Work Phone: Start: 09-02-2023 End: 25-58-1236qufevoajgdOZ Rosalie Payne Work Phone: [facility] Work Phone: Start: 07-25-2023 End: 97-83-5808xfcaqwmeonXcvothprdCleveland Clinic [facility] Work Phone: Start: 07-25-2023 End: 64-70-1483Ltbytpm encounter procedureSophie Physician Group[facility] Work Phone: Start: 04-23-2023 End: 90-59-7073dyshjtczesQdars A PocosFacility:FTMCStart: 88-90-6655Rbczi Jennifer Nagy PT Work Phone: noms FB PTStart: 04-03-2023 End: 28-41-3627kijhqnxjcdDaowu A PocosFacility:FTMCStart: 04-03-2023 End: 48-35-3977Ltuipdb encounter procedureDavid A Pocos [facility] Start: 04-01-2023 End: 98-36-9169bgcbggkhniAiypsa Kristine Other noWyze[employer] Other Start: 20-60-2768Sukqta outpatient visit 15 minutes Destinee GrobFPG Urgent Care ClydeStart: 05-01-2022 End: 37-46-8355ypnpwugulcHB DOC WILLIAM .Facility:H9Uzggl: 08-21-2021 End: 78-08-6119ymqsrpnrrwXnqtdq Dymond Other nort [employer] Other Start: 24-48-9452Hxdwse outpatient visit 15 minutes Carlie ThomasFPG Urgent Care ClydeStart: 07-26-2021 End: 56-48-7033mitrxnfctuKC DOC WILLIAM .Facility:W2Xhtcy: 10-08-9522Egzdqrqyw department patient visitARTIS YODERRegency Hospital Cleveland Westtart: 05-24-2021 End: 48-22-2974Amtuvgudl department patient visitArtis Yoder DO Work Phone: [facility] EDComment on above:Contusion of left knee, initial encounter (Primary Dx)Start: 05-11-2021 End: 70-48-7037mktehfnyfkGzwrklggr Breault [facility] [employer] Other Start: 06-36-7850Xgwdha outpatient visit 15 minutes Adriana EvangelistaFPG Urgent Care ClydeStart: 05-01-2021(URG) Urgent Care Visit Carlie ThomasFPG Urgent Care ClydeStart: 05-01-2021 End: 46-72-4442lpqusktybqOgxypd Dymond Other nort [employer] Other Start: 04-07-2021 End: 87-53-6242keuocvcdswZtrnwt Ashley Other [facility] [employer] Other Start: 00-72-4638Qjonkb outpatient visit 15 minutes Sandeep RamirezFPG Urgent Care ClydeStart: 12-14-2020 End: 33-54-2406Kbgkqqtlf department patient visitCIPRIAN RANDKettering Health Miamisburgtart: 12-14-2020 End: 49-87-1687Cnctultuj department patient visitCiprian Frankie MURRIETA Work Phone: [facility] EDComment on above:Tailbone injury, initial encounter (Primary Dx)Start: 09-19-2020 End: 77-78-5499Oloccheqg department patient visitScci Hospital [facility] EDComment on above:Closed head injury, initial encounter (Primary Dx)Start: 07-15-2017 End: 47-93-6580WscazcxjqkGTGIOJ P VARGASCOhioHealth Dublin [facility] Hospital: 05-15-2017 End: 36-67-9162QvhauvsbsuHAUJIN P VARGASCmercy health st. anne hospitaland [facility]: 04-30-2017 End: 43-92-9503RifkbskgdtCRRQYW P VARGASCmercy health st[facility] anne hospitaland [facility]: 04-29-2017 End: 74-03-1352BtjpogzacmJOBGXU P VARGASCOhioHealth Dublin [facility] Hospital: 03-13-2017 End: 88-18-3159DdyqkmdymvXGGOD MCKENZIE PABLOFacility:[facility] Procedures DateProcedureProcedure DetailPerforming ClinicianStart: 04-43-3194FZ OB BPP W NON-STRESSCorey William DO Work Phone: Start: 55-18-6233TEE THYROID STIM HORMONECorey William DO Work Phone: Start: 15-80-9444BQ OB BPP W NON-STRESSCorey William DO Work Phone: Start: 58-81-3232Gfgva dip stick/tablet rgnt non-auto w/o micrscpAmy Dm ARELLANO Work Phone: Start: 96-95-7310SL OB BPP W NON-STRESSCorey William DO Work Phone: Start: 66-12-9588Nuidf dip stick/tablet rgnt non-auto w/o micrscpCorey William DO Work Phone: Start: 18-40-3902VI OB BPP W NON-STRESSGeneric External Data ProviderStart: 25-67-4567RW OB GROWTHGeneric External Data ProviderStart: 63-39-8845VK OB BPP W NON-STRESSGeneric External Data ProviderStart: 67-02-9509KDL THYROID STIM HORMONECorey William DO Work Phone: Start: 21-60-5388Xolhk dip stick/tablet rgnt non-auto w/o micrscpKristina Enio TELEVISION NEWSCAST DIRECTOR Work Phone: Start: 76-71-7253Ddcis dip stick/tablet rgnt non-auto w/o micrscpCorey William DO Work Phone: Start: 14-98-0043Szsxs dip stick/tablet rgnt non-auto w/o micrscpKristina Enio TELEVISION NEWSCAST DIRECTOR Work Phone: Start: 74-05-2124AM ECHO DOPPLER COMPLETEGeneric External Data ProviderStart: 21-85-0854ALX 12-LEADGeneric External Data Provider Start: 45-66-8825IBG CBC WITH AUTO DIFFKristina Enio TELEVISION NEWSCAST DIRECTOR Work Phone: Start: 38-70-6703NTUFIYSXN VAGINITIS (HTRX)Luna Enio TELEVISION NEWSCAST DIRECTOR Work Phone: Start: 48-22-4405Tbbvd dip stick/tablet rgnt non-auto w/o micrscpLuna Conraderly TELEVISION NEWSCAST DIRECTOR Work Phone: Start: 38-08-6718UXH,APTIMA HPV,AGE GDLNAmy Dm PA Work Phone: Start: 26-56-8691ZW OB CERVICAL LENGTHCorey William DO Work Phone: Start: 04-15-7837Ldudl dip stick/tablet rgnt non-auto w/o micrscpCorey William DO Work Phone: Start: 17-12-0059ZTC THYROID STIM HORMONECorey William DO Work Phone: Start: 11-50-3200Qtvfj dip stick/tablet rgnt non-auto w/o micrscpAmy Dm ARELLANO Work Phone: Start: 41-36-8235IHQ THYROID STIM HORMONEGeneric External Data ProviderStart: 40-60-4519Bmlvr dip stick/tablet rgnt non-auto w/o micrscpCorey William DO Work Phone: Start: 68-30-8050TCK TESTCorey William DO Work Phone: Start: 15-61-5499LHL DRUG SCREEN RAPID (URINE)Generic External Data ProviderStart: 37-04-9709Aamni dip stick/tablet rgnt non-auto w/o micrscpCorey William DO Work Phone: Start: 78-19-3755Xwgtjamv blood count with white cell differential, automatedRosalie Payne MD Work Phone: Start: 36-06-3667Inzapweiqfdwv metabolic panelRosalie Payne MD Work Phone: Start: 79-27-0050Laenufdrocqmi antibodyEdjay Payne MD Work Phone: Start: 72-03-2838MuypjzrdqaqbdduqhrsgnasmlnBG Rosalie Payne Work Phone: Start: 34-12-3065Moyeqfs of reconstruction of anterior cruciate ligament tearStatus post arthroscopic reconstruction of anterior cruciate ligament of left knee using quadricepstendon autograftGretchen Vieira BOTTOM LIQUOR ATTENDANT Work Phone: Start: 78-88-0208Sojwcihoxp examination knee 3 views Artis Yoder DO Work Phone: Start: 49-94-0962Iqcgs sacrum & coccyx minimum 2 views David Dominguez MD Work Phone: Start: 91-50-6052Ss head/brain w/o contrast material Luis Carlos Fragoso [...] of left knee using quadricepstendon autograftGretchen Vieira BOTTOM LIQUOR ATTENDANT Work Phone: History of reconstruction of anterior cruciate ligament tearStatus post arthroscopic reconstruction of anterior cruciate ligament of left knee using quadricepstendon autograftKyle J Lilo PT Work Phone: History of reconstruction of anterior cruciate ligament tearStatus post arthroscopic reconstruction of anterior cruciate ligament of left knee using quadricepstendon autograftGretchen Vieira BOTTOM LIQUOR ATTENDANT Work Phone: History of reconstruction of anterior cruciate ligament tearStatus post arthroscopic reconstruction of anterior cruciate ligament of left knee using quadricepstendon autograftGretchen Vieira BOTTOM LIQUOR ATTENDANT Work Phone: History of reconstruction of anterior cruciate ligament tearStatus post arthroscopic reconstruction of anterior cruciate ligament of left knee using quadricepstendon autograftMariah Tattersall BOTTOM LIQUOR ATTENDANT Laparoscopic excision of cyst of left ovaryDavid Pocos Plan of Treatment DateCare ActivityDetailAuthorStart: 65-90-3791Wgeyxjuet vaccinationInfluenza Vaccine (#1)NOMS HealthcareComment on above:Postponed from 11/16/2024 (Patient Refused)Start: 01-27-2025 End: 36-51-5194Pueaaev encounter mzkiufnmu59/12/2025 1:40 PM EST Routine [facility] [address] [facility] [id number] Doc Thomas DO [address] [place] [address] [facility] [place] [facility]BGYNStart: 01-20-2025 End: 33-40-2728Bdtaewj encounter procedureNOMS [place] OBGYNComment on above: ArrivedStart: 01-05-2025 End: 51-02-4688Xdxwwbu encounter procedureNOMS Monett OBGYNComment on above: ArrivedStart: 12-23-2024 End: 25-48-0606Roifhuu encounter procedureNOMS [place] OBGYNComment on above: ArrivedStart: 12-23-2024 End: 26-99-0649Veiiymsrfcpj / ancillary services owerovswwa42/08/2025 1:30 PM EDT Ancillary Procedure [facility] [address] [facility] [place] [id number] [facility] [place] [facility]BGYNStart: 12-09-2024 End: 05-66-7955Dehukbu encounter procedureNOMS Alba OBGYNComment on above: ArrivedStart: 11-25-2024 End: 21-34-4545PL biophysical profile w non stress testUS biophysical profile w non stress test Imaging Routine 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), Expires: 05/25/2025[facility] Work Phone: comment on above:Expected: 11/25/2024 (Approximate), Expires: 05/25/2025Start: 11-25-2024 End: 64-59-4725BV for pregnancyUS OB follow up transabdominal approach Imaging Routine Evan's disease Expected: 11/25/2024, Expires: 03/27/2025NOMS HealthcareComment on above:Expected: 11/25/2024, Expires: 03/27/2025Start: 11-25-2024 End: 93-07-8605Esusszh encounter procedureNOMS Alba OBGYNComment on above: ArrivedStart: 99-38-0399WNIBH-19 Vaccine ()COVID-19 Vaccine ()NOMS HealthcareStart: 66-39-8597Gcntgiafe vaccinationNOMS HealthcareStart: 10-28-2024 End: 81-09-9134Qhzjkgc encounter procedureNOMS BCP OBComment on above:Arrived Start: 10-28-2024 End: lead ECGECG 12 lead unit performed ECG Routine Heart palpitations Expected: 10/28/2024 (Approximate), Expires: 10/28/2025NOMT HealthcareComment on above:Expected: 10/28/2024 (Approximate), Expires: 10/28/2025Start: 10-28-2024 End: 75-95-2965NUR panel - Blood by Automated countCBC Lab Routine Diabetes mellitus screening Expected: 10/28/2024 (Approximate), Expires: 10/28/2025[facility] Work Phone: comment on above:Expected: 10/28/2024 (Approximate), Expires: 10/28/2025Start: 10-28-2024 End: 90-04-6667Ukuibogrxyjqet 2D completeEchocardiogram 2D complete Echocardiography Routine Heart palpitations Expected: 10/28/2024 (Approximate), Expires: 10/28/2026NOMT HealthcareComment on above:Expected: 10/28/2024 (Approximate), Expires: 10/28/2026Start: 10-28-2024 End: 74-55-5147Cwdgqqfohfb of glucose 1 hour after glucose challenge for glucose tolerance testGlucose tolerance, 1 hour Lab Routine Diabetes mellitus screening Expected: 10/28/2024 (Approximate), Expires: 10/28/2025NOMS HealthcareComment on above:Expected: 10/28/2024 (Approximate), Expires: 10/28/2025Start: 09-30-2024 End: 75-05-5679Hxcgjtf encounter fctvgmwev00/16/2025 3:40 PM EDT Routine [facility] [address] [place] [id number] Doc Thomas, DO [address] [place], [place] [address] [place], [place] [id number] NOMS BCP OBStart: 09-30-2024 End: 06-14-1619Phbcuqemqoqf / ancillary services vwsnvlndiv30/16/2025 2:30 PM EDT Ancillary Procedure [facility] [address] [place] [address] NOMS BCP OBStart: 09-02-2024 End: 47-01-6387Dublusv encounter procedureNOMT BCP OBComment on above:Arrived Start: 09-02-2024 End: 34-72-9922Cfrta fetoprotein, maternalAlpha fetoprotein, maternal Lab Routine Second trimester ([facility]) Expected: 09/02/2024 (Approximate), Expires: 11/02/2024NOMT HealthcareComment on above:Expected: 09/02/2024 (Approximate), Expires: 11/02/2024Start: 09-02-2024 End: 03-07-7942JI for pregnancyUS OB 14+ weeks anatomy scan Imaging Routine Screening, , for anatomic survey ([facility]) Expected: 09/02/2024, Expires: 12/03/2024[facility] Work Phone: comment on above:Expected: 09/02/2024, Expires: 12/03/2024Start: 08-05-2024 End: 26-75-1884Extquqw encounter procedureNOMT BCP OBComment on above:Arrived Start: 07-16-2024 End: 93-37-0510IFK/RhABO/Rh Lab Routine Missed menses , unspecified gestational age Expected: 07/16/2024 (Approximate), Expires: 07/16/2025NOMT HealthcareComment on above:Expected: 07/16/2024 (Approximate), Expires: 07/16/2025Start: 07-16-2024 End: 07-38-5657Qvfuv type and Indirect antibody screen panel - BloodType and screen Lab Routine Missed menses , unspecified gestational age Expected: 07/16/2024 (Approximate), Expires: 07/16/2025NOMT HealthcareComment on above:Expected: 07/16/2024 (Approximate), Expires: 07/16/2025Start: 07-16-2024 End: 77-33-6191Qcbqw of abuse panel - Urine by Screen methodRapid drug screen, urine Lab Routine , unspecified gestational age Encounter for supervision of normal first in first trimester Expected: 07/16/2024 (Approximate), Expires: 07/16/2025NOMT HealthcareComment on above:Expected: 07/16/2024 (Approximate), Expires: 07/16/2025Start: 07-10-2024 End: 28-77-4071EE Pelvis transvaginalUS OB transvaginal Imaging Routine Missed menses Expected: 07/10/2024, Expires: 10/09/2024[facility] Work Phone: comment on above:Expected: 07/10/2024, Expires: 10/09/2024Start: 02-21-2024 End: 79-76-8654Fefsxil encounter qdmesxddv68/06/2024 8:00 AM EST Office Visit [facility] [address] [place] [address] Myron Marroquin DO [address] [place] [address] NOMS SWS ORTHOAOStart: 02-19-2024 End: 84-20-7809Okaibrk encounter skwpjfrlu04/04/2024 3:30 PM EST Office Visit [facility] 100 [address] [facility] [address] [place] [address] Rosalie Payne MD [address] [facility] [address] [place] [address] (Fax) 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CMS/HCC); Chronic fatigue; Cigarette smoker; Non morbid obesity due to excess caloriesNOMS CI FM 100Comment on above: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CMS/HCC); Chronic fatigue; Cigarette smoker; Non morbid obesity due to excess caloriesStart: 02-19-2024 End: 86-80-2709Ybmpkux, randomInsulin, random Lab Routine Non morbid obesity due to excess calories Postural orthostatic tachycardia syndrome (POTS) Expected: 02/19/2024 (Approximate), Expires: 02/18/2025[facility] Work Phone: Comment on above:Expected: 02/19/2024 (Approximate), Expires: 02/18/2025Start: 01-17-2024 End: 07-21-5572gscdaemgko03/01/2024 2:30 PM EDT Treatment [facility] PT [address] [place] [address] Stefano Nagy, PT [address] [place] [address] [facility] FB PTStart: 01-14-2024 End: 09-89-2836nbouwgbsfi36/29/2024 3:30 PM EDT Treatment [facility] FB PT [address] [place] [address] Nereyda Vieira, BOTTOM LIQUOR ATTENDANT [address] [place] [address] NOMS FB PTStart: 01-10-2024 End: 70-31-0849hldcphomxs90/25/2024 2:30 PM EDT Treatment [facility] FB PT [address] [place] [address] Stefano Nagy, PT [address] [place] [address] N[facility]S FB PTStart: 01-07-2024 End: 18-10-4134mftpwzdeta96/22/2024 3:30 PM EDT Treatment [facility] FB PT [address] [place] [address] Stefano Nagy, PT [address] [place] [address] [facility]S FB PTStart: 01-03-2024 End: 63-53-2284mvtozbopfj48/18/2024 2:30 PM EDT Treatment [facility] FB PT [address] [place] [phone] Stefano Nagy, PT [address] [place] [address] N[facility] FB PTStart: 12-31-2023 End: 71-71-9998enfaayixzi74/15/2024 3:30 PM EDT Treatment [facility] FB PT [address] [place] [address] Jennifer Dozier PTANOMS FB PTStart: 12-27-2023 End: 13-56-8369jfawlywxrcBRDQ FB PTComment on above:ArrivedStart: 12-24-2023 End: 00-76-8919arxuqgltvb71/08/2024 3:00 PM EDT Treatment [facility] FB PT [address] [place] [address] Nereyda Vieira, BOTTOM LIQUOR ATTENDANT [address] [place] [address] NOMS FB PTStart: 12-17-2023 End: 86-09-2797svqliyisim09/01/2024 3:00 PM EDT Treatment [facility] FB PT [address] [place] [address] Stefano Nagy, PT [address] [place] [address] NOMS FB PTStart: 12-09-2023 End: 66-67-0320Tejqazr encounter procedureNOMS [facility] ORTHOAOComment on above: ArrivedStart: 12-03-2023 End: 95-67-7232difsedovki44/17/2024 3:30 PM EDT Treatment [facility] FB PT [address] [place] [address] Angela Vieiratchen, BOTTOM LIQUOR ATTENDANT [address] [place] [address] ArrivedNOMS FB PT Comment on above:ArrivedStart: 11-19-2023 End: 99-71-4243kdnhbelegzSKTL FB PTComment on above:Acute pain of left knee (Primary Dx); Status post arthroscopic reconstruction of anterior cruciate ligament of left knee using quadricepstendon autograftStart: 57-85-2662Axgginjuc vaccination Influenza Vaccine (#1)[facility] HealthcareStart: 92-57-9929TbogxcswzUniversity Hospitals Parma Medical Centertart: 05-07-2023 End: 63-52-8372Sxcyfce encounter wknppexoz63/20/2024 11:10 AM EST Office Visit [facility] OB [address] [place] [phone] Doc Thomas, DO [address] [place] [address] [facility] BCP OBStart: 05-03-2023 End: 34-62-4312Onniqpo encounter vekkcyuks02/16/2024 11:00 AM EST Office Visit [facility] [address] [place] [phone] Myron Marroquin, DO [address] [place] [address] [facility] SWS ORTHOAOStart: 04-23-2023 End: 44-06-4134Ssmemho encounter vesiezxmi85/06/2024 8:00 AM EST Procedure Visit [facility] EXT Myron Huerta, DO [address] [place] [address] [facility] EXT DEPStart: 04-22-2023 End: 86-65-7939pbnowprriz12/05/2024 2:30 PM EST Evaluation [facility] [address] [place] [address] Stefano Nagy, PT [address] [place] [address] N[facility]S FB PTStart: 02-71-1503Eylsgmcio vaccinationInfluenza Vaccine (#1)[facility] HospitalStart: 73-25-6275SQgO/Tdap/Td vaccine (5 - Td or Tdap)DTaP/Tdap/Td vaccine (5 - Td or Tdap)[facility]Start: 10-22-1732Bjpoffkxe vaccinationFlu vaccine (#1)[facility] HospitalStart: 03-87-2245Dblusjdiv for malignant neoplasm of cervixOhio State University [facility] Start: 70-87-9896FWuH/Tdap/Td vaccine (1 - Tdap)DTaP/Tdap/Td vaccine (1 - Tdap) [facility] Work Phone: start: 66-03-7788Jpfrqojwmgse Vaccine: Pediatrics (0 to 5 Years) and At-Risk Patients (6 to 64 Years) (1 of 2 - PCV)Pneumococcal Vaccine: Pediatrics (0 to 5 Years) and At-Risk Patients (6 to 64 Years) (1 of 2 - PCV)[facility] HospitalStart: 70-21-4250Gvixmvaak for Chlamydia trachomatis Chlamydia screenOhio State University We[facility]ner Medical Center HealthStart: 40-33-9954NNA screeningHIV screenOhio State University Wexner Medical Center Health Start: 69-86-5193Fiddffzkw vaccine (2 of 2 - 2-dose childhood series)Varicella vaccine (2 of 2 - 2-dose childhood series)[facility] HospitalStart: 26-12-2513HSPAG-19 Vaccine (1)COVID-19 Vaccine (1)[facility] I/O Phone: start: 36-22-3811Sxujskayai ScreenDepression Screen [facility]: 32-12-7709FVU vaccine (1 - 2-dose series)HPV vaccine (1 - 2- dose series)[facility]: 10-21-9210DFRLX-19 Vaccine (1)COVID-19 Vaccine (1)[facility]: 35-62-8593Oryfytkbz vaccine (1 of 2 - 2-dose childhood series)Varicella vaccine (1 of 2 - 2-dose childhood series)[facility] Phone: start: 79-58-4342Pxzuvtloi C screeningHepatitis C screenMercy HealthBacteria identified in Urine by CultureUrine culture Microbiology Routine Missed menses Ordered: 07/16/2024[facility] HealthcareComment on above:Ordered: 07/16/2024BC W Auto Differential panel - BloodCBC and differential Lab Routine Missed menses , unspecified gestational age Ordered: 07/16/2024[facility] HealthcareComment on above:Ordered: 07/16/2024HLAMYDIA TRACHOMATIS (GENITO/STI)CHLAMYDIA TRACHOMATIS (GENITO/STI) Lab Routine STD exposure Ordered: 10/28/2024[facility] HealthcareComment on above:Ordered: 10/28/2024 Cytology Cervical or vaginal smear or scraping studyPap Smear Pathology and Cytology Routine Well woman exam with routine gynecological exam Ordered: [facility] HealthcareComment on above:Ordered: 10/28/2024Hemoglobin A1c/Hemoglobin.total in BloodHemoglobin A1c Lab Routine Missed menses , unspecified gestational age Ordered: 07/16/2024[facility] HealthcareComment on above: Ordered: 07/16/2024Hepatitis B virus surface Ag [Presence] in Serum or Plasma by ImmunoassayHepatitis B surface antigen Lab Routine Missed menses , unspecified gestational age Ordered: 07/16/2024[facility] HealthcareComment on above: Ordered: 07/16/2024Hepatitis C virus Ab [Presence] in Serum or Plasma by ImmunoassayHepatitis C antibody Lab Routine Missed menses , unspecified gestational age Ordered: 07/16/2024[facility] HealthcareComment on above:Ordered: 07/16/2024HIV-1/HIV-2 antigen/antibody combination immunoassayHIV-1 and HIV-2 antibodies Lab Routine Missed menses , unspecified gestational age Ordered: 07/16/2024[facility]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 MemberRelationshipSpecialtyStart DateEnd Date Rosalie Payne MD [address] [place] [address] (Fax) PCP - GeneralFamily Medicine07/24/22 Rosalie Payne MD [address] [place] [address] (Fax) PCP - [facility]06/16/20Team MemberRelationshipSpecialtyStart DateEnd Date Rosalie Payne MD [address] [place] [address] (Fax) PCP - GeneralFamily Medicine07/24/22 Rosalie Payne MD [address] [place] [address] (Fax) PCP - [facility]06/16/20Team MemberRelationshipSpecialtyStart DateEnd Date Rosalie Payne MD [address] [place] [address] (Fax) PCP - GeneralFamily Medicine07/24/22 Rosalie Payne MD [address] [place] [address] (Fax) PCP - [facility] [employer]06/16/20Team MemberRelationshipSpecialtyStart DateEnd Date Rosalie Payne MD [address] [place] [address] (Fax) PCP - Generalmily Medicine07/24/22 Rosalie Payne MD [address] [place] [address] (Fax) PCP - [facility]06/16/20Team MemberRelationshipSpecialtyStart DateEnd Date Rosalie Payne MD [address] [place] [address] (Fax) PCP - Generalmily Medicine07/24/22 Rosalie Payne MD [address] [place] [address] (Fax) PCP - [facility]06/16/20Team MemberRelationshipSpecialtyStart DateEnd Date Rosalie Payne MD [address] [place] [address] (Fax) PCP - [facility]07/24/22 Rosalie Payne MD [address] [facility] [place] [address] (Fax) PCP - [facility]06/16/20Te MemberRelationshipSpecialtyStart DateEnd Date Rosalie Payne MD [address] [facility] [address] [place] [address] (Fax) PCP - [facility]07/24/22 Rosalie Payne MD [address] [facility] [address] [place] [address] (Fax) [facility] - [facility]06/16/20Te MemberRelationshipSpecialtyStart DateEnd Date Rosalie Payne MD [address] [facility] [address] [place] [address] (Fax) PCP - [facility]07/24/22 Rosalie Payne MD [address] [address] [place] [address] (Fax) PCP - [facility]06/16/20 Goals (unrecognized section and content) Goals [...] BE BASED ON THE PRIMARY CLINICAL RECORDS. [employer] [facility]. provides no warranty or guarantee of the accuracy or completeness of information in this document.
[2025-02-06 09:17] VITALS: BP 132/85; PULSE 130
== END 2025-02-06 09:42 | disposition home or self-care (01) ==
LOC: US 08:58 → FBC 09:00
PROVIDERS: PCP Family Medicine; Visit Provider Obstetrics & Gynecology
DX: O99.283 Endocrine, nutritional and metabolic diseases complicating pregnancy, third trimester (principal); Z3A.38 38 weeks gestation of pregnancy
CPT/HCPCS: 76818

== ENCOUNTER 2025-02-09 14:34 | Inpatient (IN) | payer BC, SELFPAY ==
--- OUTSIDE RECORDS SUMMARY | 2025-01-27 13:40 | XMS_ITS | Encounter Summary ---
Author Organization [facility] Address [address] [place] [address] Care Team Providers Care Caustics Loader Name Role Phone Danny Schuler MD Primary Care Provider [phone] Danny Schuler MD Unavailable [phone] Reason for Visit * ReasonCommentsRoutine Visit Encounter Details DateTypeDepartmentCare Team (Latest Contact Info)Vwvjrqocksu46/12/2025 1:40 PM ESTRoutine [facility] [address] [place] [phone] Doc Thomas DO [address] [place] [address] 36 weeks gestation of ([facility]); Third trimester ([facility]); Gabby's disease; Low hemoglobin; Heart palpitations; Pelvic [...] relatives?Once a week12/11/2022How often do you attend congregation or tenriism services?More than 4 times per year12/11/2022o you belong to any clubs or organizations such as congregation groups, unions, fraternal or athletic groups, or [...] care, and heating?Somewhat hard 12/11/2022[facility] [place] of Occupational Health - Occupational Stress QuestionnaireAnswerDate RecordedDo you feel stress - tense, restless, nervous, or anxious, or unable to sleep at night because yourmind is troubled all the time - these days?Only a hkabmy8712/11/2022Exercise Vital SignAnswerDate Recorded On average, how many [...] place to sleep or slept in [place] (including now)?No12/11/2022EducationAnswer Date RecordedWhat is the highest level of school you have completed or the highest degree you have received?11th grade12/10/2022Estimated Date of GdxsclsbYzxaqpofEnf76/06/2025Based on last menstrual period of 05/16/2024Sex and Gender InformationValueDate RecordedSex Assigned at JymzqAfnwof03/25/2023 10:10 AM EDTLegal FemSpzgya18/15/2023 6:51 PM EDTGender GurvyjejAbupyj69/25/2023 10:10 AM EDTSexual OrientationNot on filedocumented as of this encounter Last Filed Vital Signs Vital SignReadingTime TakenCommentsBlood Isxijdid207/80103/29/2024 2:05 PM EST Pulse--Temperature--Respiratory Rate--Oxygen Saturation--Inhaled Oxygen Concentration--Awtzzz83.8 kg (176 lb)01/27/2025 2:05 PM ESTHeight--Body Mass Index30. 3:41 PM ESTdocumented in this encounter Progress Notes * Lissette Anton, HOPS FARMWORKER - 01/27/2025 1:40 PM EST Reason for [...] 2019 OVARIAN CYST REMOVAL Left 05/20/2020 [facility] William VAGINAL DELIVERY REVIEW OF SYSTEMS [...] nursing note reviewed. Exam conducted with a casualty claims supervisor present. Vitals: Estimated body mass index is [...] documented in this encounter Plan of Treatment NameTypePriorityAssociated DiagnosesOrder ScheduleCULTURE, GROUP B STREP WITH SUSCEPTIBLITYLabRoutine Third trimester ([facility]) Expected: 01/27/2025, Expires: 01/27/2026documented as of this encounter Procedures Procedure NamePriorityDate/TimeAssociated DiagnosisCommentsPOCT URINALYSIS ZKFBPPNSSznygtu92/12/2025 2:14 PM EST 36 weeks gestation of ([facility]) Third trimester ([facility]) documented in this encounter Results * (ABNORMAL) POCT urinalysis dipstick manually resulted (01/27/2025 2:14 PM EST) ComponentValueRef RangeTest MethodAnalysis TimePerformed AtPathologist SignatureColor, UAStrawClarity, UAClearGlucose, UAPositiveNegative - 2000(110) ++++ mg/dLBilirubin, UANegativeNegative - 4(70) [...] Visit Diagnoses Diagnosis 36 weeks gestation of ([facility]) Third trimester ([facility]) state, incidental Gabby's disease Chronic lymphocytic thyroiditis Low hemoglobin Heart palpitations Palpitations Pelvic pressure in ([facility]) Other specified complication, antepartum documented in this encounter Care Teams Team MemberRelationshipSpecialtyStart DateEnd Date Danny Schuler MD [address] [address] PCP - GeneralFamily Medicine07/24/22 Danny Schuler MD [address] [address] PCP - Ziggy Richard06/16/20documented as of this encounter
--- OUTSIDE RECORDS SUMMARY | 2025-02-03 13:30 | XMS_ITS | Encounter Summary ---
Author Organization [facility] Address [address] [place] [address] Care Team Providers Care Materials Planning Analyst Name Role Phone Danny Schuler MD Primary Care Provider [phone] Danny Schuler MD Unavailable [phone] Reason for Visit * ReasonCommentsRoutine Visit Encounter Details DateTypeDepartmentCare Team (Latest Contact Info)Hgtpwemkaqy16/19/2025 1:30 PM ESTRoutine [facility] [address] [facility] [place] [phone] Doc Thomas DO [address] [facility] [place] [address] Third trimester ([facility]); 37 weeks gestation of ([facility]) Social History Tobacco UseTypesPacks/DayYears UsedDateSmoking Tobacco: [...] week12/11/2022How often do you attend samaritan or yazidism services?More than 4 times per year12/11/2022o you belong to any clubs or organizations such as samaritan groups, unions, fraUmweltech or athletic groups, or school groups?No12/11/2022How often [...] food, housing, medical care, and heating?Somewhat hard 12/11/2022[facility] [place] of Occupational Health - Occupational Stress QuestionnaireAnswerDate RecordedDo you feel stress - tense, restless, nervous, or anxious, or unable to sleep at night because yourmind is troubled all the time - these days?Only a wqecxd7612/11/2022Exercise Vital SignAnswerDate Recorded On average, how many [...] degree you have received?11th grade12/10/2022Estimated Date of LygfukjkNpllntmzJqc87/06/2025Based on last menstrual period of 05/16/2024Sex and Gender InformationValueDate RecordedSex Assigned at EewhiTgmczw09/25/2023 10:10 AM EDTLegal EygGvlkwz31/15/2023 6:51 PM EDTGender XxdylmyvKjchvd93/25/2023 10:10 AM EDTSexual OrientationNot on filedocumented as of this encounter Last Filed Vital Signs Vital SignReadingTime TakenCommentsBlood Pkbmzjco908/6802/03/2025 1:45 PM EST Pulse--Temperature--Respiratory Rate--Oxygen Saturation--Inhaled Oxygen Concentration--Cgcinh59.2 kg (179 lb)02/03/2025 1:45 PM ESTHeight--Body Mass Index30.7312 3:41 PM ESTdocumented in this encounter Progress Notes * ADAN Gonzalez - 02/03/2025 1:30 PM EST Reason for Appointment: Patient ID: [...] Cigarette smoker 12/10/2022 Cyst of ovary 12/10/2022 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 Vitals: Estimated body mass index is 30.73 kg/m?? as calculated from the following: Height as of 02/26/24: 5' 4 . Weight as of this encounter: 179 lb. BP: 114/68 Patient's last menstrual period was 05/16/2024. Assessment/Plan ICD-10-CM 1. Third trimester ([facility]) Z34.93 2. 37 weeks gestation of ([facility]) Z3A.37 POCT urinalysis dipstick manually resulted Assessment/Plan Return OB: Patient presents today for a routine obstetrics appointment. Patient is currently 37w4d . Patient states she is doing well [...] Documented by ADAN Gonzalez on behalf of: Doc Thomas DO documented in this encounter Plan of Treatment Not on file documented as of this encounter Procedures Procedure NamePriorityDate/TimeAssociated DiagnosisCommentsPOCT URINALYSIS DRRJVGBAYxchnmn83/19/2025 1:45 PM EST 37 weeks gestation of ([facility]) documented in this encounter Results * (ABNORMAL) POCT urinalysis dipstick manually resulted (02/03/2025 1:45 PM EST) ComponentValueRef RangeTest MethodAnalysis TimePerformed AtPathologist SignatureColor, UAYellowClarity, UAClearGlucose, UATraceNegative - 2000(110) ++++ mg/dLBilirubin, UANegativeNegative - 4(70) +++ mg/dLKetones, UANegative Negative - 160(16) ++++ mg/dLSpec Grav, UA1.0101 - 1.03Blood, UANegative Negative - 50 Randall/mcLpH, UA6.55 - 9Protein, UATraceNegative - 2000(20) ++++ mg/dLUrobilinogen, UA1.00.2 - 12 mg/dLLeukocytes, UA1+Negative - 500+++ Rick/mcLNitrite, UANegativeNegative - PositiveSpecimen (Source)Anatomical Location / LateralityCollection Method / VolumeCollection TimeReceived Time Urine02/03/2025 1:45 PM EST Narrative Authorizing ProviderResult TypeResult StatusCorekehinde Thomas DOPOINT OF CARE TEST ENTER/EDIT ORDERABLESFinal Result documented in this encounter Visit Diagnoses Diagnosis Third trimester ([facility]) state, incidental 37 weeks gestation of ([facility]) documented in this encounter Care Teams Team MemberRelationshipSpecialtyStart DateEnd Date Danny Schuler MD [address] [address] PCP - GeneralFamily Medicine07/24/22 Danny Schuler MD [address] [place] [address] [place] [address] PCP - [facility]06/16/20documented as of this encounter
[2025-02-09] VITALS (17 sets, daily range): BP systolic 119–150; BP diastolic 61–92; PULSE 54–109; TEMP 36.8
--- OUTSIDE RECORDS SUMMARY | 2025-02-09 13:20 | XMS_ITS | Encounter Summary ---
Author Organization [facility] Address [address] [place] [address] Care Team Providers Care Erp Business Analyst Name Role Phone Danny Schuler MD Primary Care Provider [phone] Danny Schuler MD Unavailable [phone] Reason for Visit * ReasonCommentsRoutine Visit Encounter Details DateTypeDepartmentCare Team (Latest Contact Info)Qqsdkpvfwnj01/25/2025 1:20 PM ESTRoutine [facility] [address] [place] [id number] Pretty Chaidez PA [address] [place], [place] [id number] Third trimester ([facility]); 38 weeks gestation of ([facility]) Social [...] week12/11/2022How often do you attend zoroastrianism or mormonism services?More than 4 times per year12/11/2022o you belong to any clubs or organizations such as zoroastrianism groups, unions, [email or web address] or athletic groups, or school groups?No12/11/2022How often [...] food, housing, medical care, and heating?Somewhat hard 12/11/2022[facility] [place] of Occupational Health - Occupational Stress QuestionnaireAnswerDate RecordedDo you feel stress - tense, restless, nervous, or anxious, or unable to sleep at night because yourmind is troubled all the time - these days?Only a rzkmkh4812/11/2022Exercise Vital SignAnswerDate Recorded On average, how many [...] degree you have received?11th grade12/10/2022Estimated Date of XhflkgglEbfsvpycAkc80/06/2025Based on last menstrual period of 05/16/2024Sex and Gender InformationValueDate RecordedSex Assigned at JodcrWpxjox36/25/2023 10:10 AM EDTLegal FxzHnsasu46/15/2023 6:51 PM EDTGender IugsahrbKvipcx36/25/2023 10:10 AM EDTSexual OrientationNot on filedocumented as of this encounter Last Filed Vital Signs Vital SignReadingTime TakenCommentsBlood Kewpueyl386/8202/09/2025 1:38 PM EST Pulse--Temperature--Respiratory Rate--Oxygen Saturation--Inhaled Oxygen Concentration--Aswgxz27.8 kg (176 lb)02/09/2025 1:38 PM ESTHeight--Body Mass Index30. 3:41 PM ESTdocumented in this encounter Progress Notes * ADAN Gonzalez - 02/09/2025 1:20 PM EST Reason for Appointment: Patient ID: [...] Left 2019 OVARIAN CYST REMOVAL Left 05/20/2020 [facility] William VAGINAL DELIVERY REVIEW OF [...] reviewed. Vitals: Estimated body mass index is 30.21 kg/m?? as calculated from the following: Height as of 02/26/24: 5' 4 . Weight as of this encounter: 176 lb. BP: 118/82 Patient's last menstrual period was 05/16/2024. Assessment/Plan ICD-10-CM 1. Third trimester ([facility]) Z34.93 2. 38 weeks gestation of ([facility]) Z3A.38 POCT urinalysis dipstick manually resulted Assessment/Plan Patient presents to office in active labor. She is dilated to 5cm with contractions, she will be sent to hospital immediately from office. PVU and agrees with plan of care Documented by ADAN Gonzalez on behalf of: ADAN Gonzalez documented in this encounter Plan of Treatment Not on file documented as of this encounter Procedures Procedure NamePriorityDate/TimeAssociated DiagnosisCommentsPOCT URINALYSIS ZUPZBZZIAarvjwk89/25/2025 1:43 PM EST 38 weeks gestation of ([facility]) documented in this encounter Results * (ABNORMAL) POCT urinalysis dipstick manually resulted (02/09/2025 1:43 PM EST) ComponentValueRef RangeTest MethodAnalysis TimePerformed AtPathologist SignatureColor, UAYellowClarity, UAClearGlucose, UANegativeNegative - 2000(110) ++++ mg/dLBilirubin, UANegativeNegative - 4(70) +++ mg/dLKetones, UA NegativeNegative - 160(16) ++++ mg/dLSpec Grav, UA1.0101 - 1.03Blood, UA NegativeNegative - 50 Randall/mcLpH, UA6.55 - 9Protein, UANegativeNegative - 2000(20) ++++ mg/dLUrobilinogen, UA1.00.2 - 12 mg/dLLeukocytes, UATrace Negative - 500+++ Rick/mcLNitrite, UANegativeNegative - PositiveSpecimen (Source)Anatomical Location / LateralityCollection Method / VolumeCollection TimeReceived JcesUfpmw38/25/2025 1:43 PM EST Narrative Authorizing ProviderResult TypeResult StatusRiverside Doctors' Hospital [place] TEST ENTER/EDIT ORDERABLESFinal Result documented in this encounter Visit Diagnoses Diagnosis Third trimester ([facility]) state, incidental 38 weeks gestation of ([facility]) documented in this encounter Care Teams Team MemberRelationshipSpecialtyStart DateEnd Date Danny Schuler MD [address] [address] PCP - GeneralFamily Medicine07/24/22 Danny Schuler MD [address] [place] [address] [address] [facility]06/16/20documented as of this encounter
--- OUTSIDE RECORDS SUMMARY | 2025-02-09 14:39 | XMS_ITS | Encounter Summary ---
Author Organization [facility] Address [address] [place] [address] Care Team Providers Care Blood Bank Attendant Name Role Phone Danny Schuler MD Primary Care Provider [phone] Danny Schuler MD Unavailable [phone] Encounter Details DateTypeDepartmentCare Team (Latest Contact Info)Qgjjjyahojj62/12/2025Bamboo flowsheet [facility] [place] [facility] [address] [place] [phone] Doc Thomas DO [address] [place], [place] [address] Social History Tobacco UseTypesPacks/DayYears UsedDateSmoking Tobacco: Some [...] week12/11/2022How often do you attend evangelical or rastafarian services?More than 4 times per year12/11/2022o you [...] and heating?Somewhat hard 12/11/2022[facility] [place] of Occupational Health - Occupational Stress QuestionnaireAnswerDate RecordedDo you feel stress - tense, restless, nervous, or anxious, or unable to sleep at night because yourmind is troubled all the time - these days?Only a rmifbz1312/11/2022Exercise Vital SignAnswerDate Recorded On average, how many [...] degree you have received?11th grade12/10/2022Estimated Date of HbmnqjgvJdmipuwfDav34/06/2025Based on last menstrual period of 05/16/2024Sex and Gender InformationValueDate RecordedSex Assigned at JasgaBjeedc17/25/2023 10:10 AM EDTLegal ZvuJczips00/15/2023 6:51 PM EDTGender TwjgorvaCezwjs55/25/2023 10:10 AM EDTSexual OrientationNot on filedocumented as of this encounter Plan of Treatment Not on file documented as of this encounter Visit Diagnoses Not on filedocumented in this encounter Care Teams Team MemberRelationshipSpecialtyStart DateEnd Date Danny Schuler MD [address] [place] [address] PCP - GeneralFamily Medicine07/24/22 Danny Schuler MD [address] [place] [address] PCP - [employer]06/16/20documented as of this encounter
--- OUTSIDE RECORDS SUMMARY | 2025-02-09 14:40 | XMS_ITS | Encounter Summary ---
Author Organization [facility] Address [address] [place] [address] Care Team Providers Care Manager Scientific Name Role Phone Danny Schuler MD Primary Care Provider [phone] Danny Schuler MD Unavailable [phone] Encounter Details DateTypeDepartmentCare Team (Latest Contact Info)Uvvnuguilnp13/12/2025Clinisync Result Encounter [facility] External Department Unsolicited Doc Thomas, DO [address] [place] [address] Social History Tobacco UseTypesPacks/DayYears UsedDateSmoking Tobacco: Some [...] relatives?Once a week12/11/2022How often do you attend islam or evangelical services?More than 4 times per year12/11/2022o you belong to any clubs or organizations such as islam groups, unions, fraPlaynatic Entertainment or athletic groups, or school groups?No12/11/2022How often [...] medical care, and heating?Somewhat hard 12/11/2022[facility] [place] of Occupational Health - Occupational Stress QuestionnaireAnswerDate RecordedDo you feel stress - tense, restless, nervous, or anxious, or unable to sleep at night because yourmind is troubled all the time - these days?Only a uzmjsi4512/11/2022Exercise Vital SignAnswerDate Recorded On average, how many [...] degree you have received?11th grade12/10/2022Estimated Date of TmcevtjbXevqchcgVmn84/06/2025Based on last menstrual period of 05/16/2024Sex and Gender InformationValueDate RecordedSex Assigned at YcibwEapaob12/25/2023 10:10 AM EDTLegal YtmNjcoek03/15/2023 6:51 PM EDTGender UudtdqslGorpwm57/25/2023 10:10 AM EDTSexual OrientationNot on filedocumented as of this encounter Plan of Treatment Not on file documented as of this encounter Procedures Procedure NamePriorityDate/TimeAssociated DiagnosisCommentsSTREP GP B CULTURE+ICDYXounipn87/12/2025 1:57 PM EST documented in this encounter Results * STREP GP B CULTURE+RFLX (01/27/2025 1:57 PM EST)ComponentValueRef RangeTest MethodAnalysis TimePerformed AtPathologist SignatureSTREP GP B CULTURE+RFLX ??Strep Gp B Culture+Rflx TBHSTREP GP B CULTURE+RFLXNegativeTBHSTREP GP B CULTURE+RFLXCenters for Disease Control and Prevention (CDC) andTBHSTREP GP B CULTURE+RFLXAmercentinela [facility] Congress of Obstetricians and GynecologistsTBHSTREP GP B [...] is noted.TBHSTREP GP B CULTURE+RFLX Performed at: [facility] LabAscension Borgess-Pipp HospitalTBHSTREP GP B CULTURE+TQWT[address] [place], [place] [id number] GP B CULTURE+RFLXLab Director: Boris Quigley PhD, Phone: [phone] (Source)Anatomical Location / Laterality Collection Method / VolumeCollection TimeReceived Time01/27/2025 1:57 PM EST 01/27/2025 8:34 PM EST Narrative [facility] - 02/01/2025 3:08 PM EST Authorizing ProviderResult TypeResult StatusCorey William DOLAB BLOOD ORDERABLES Final ResultPerforming OrganizationAddressCity/State/ZIP CodePhone Number [facility] documented in this encounter Visit Diagnoses Not on filedocumented in this encounter Care Teams Team MemberRelationshipSpecialtyStart DateEnd Date Danny Schuler MD [address] [place] [address] PCP - GeneralFamily Medicine07/24/22 Danny Schuler MD [address] [facility] [address] [place] [address] PCP - [place] [facility]06/16/20documented as of this encounter
--- OUTSIDE RECORDS SUMMARY | 2025-02-09 14:40 | XMS_ITS | Encounter Summary ---
Author Organization [facility] Address [address] [place] [address] Care Team Providers Care Respiratory Care Faculty Name Role Phone Danny Payne MD Primary Care Provider [phone] Danny Payne MD Unavailable [phone] Encounter Details DateTypeDepartmentCare Team (Latest Contact Info)Ksmjvoyvpbc22/22/2025Clinisync Result Encounter [facility] External Department Unsolicited Sintia Thomas, DO [address] [facility] [place] [address] Social History Tobacco UseTypesPacks/DayYears UsedDateSmoking Tobacco: Some [...] week12/11/2022How often do you attend holiness or zoroastrianism services?More than 4 times per year12/11/2022o you belong to any clubs or organizations such as holiness groups, unions, fraAdbrain or athletic groups, or school groups?No12/11/2022How often [...] food, housing, medical care, and heating?Somewhat hard 12/11/2022[facility] [place] of Occupational Health - Occupational Stress QuestionnaireAnswerDate RecordedDo you feel stress - tense, restless, nervous, or anxious, or unable to sleep at night because yourmind is troubled all the time - these days?Only a rjgklj6912/11/2022Exercise Vital SignAnswerDate Recorded On average, how many [...] degree you have received?11th grade12/10/2022Estimated Date of XitjfakrYuuhykelAjt61/06/2025Based on last menstrual period of 05/16/2024Sex and Gender InformationValueDate RecordedSex Assigned at KllefAalwha39/25/2023 10:10 AM EDTLegal DefQqzghi84/15/2023 6:51 PM EDTGender SgdmlbglYuwvxz12/25/2023 10:10 AM EDTSexual OrientationNot on filedocumented as of this encounter Plan of Treatment Not on file documented as of this encounter Procedures Procedure NamePriorityDate/TimeAssociated DiagnosisCommentsUS OB BPP W NON-UBMFAM9302/06/2025 9:27 AM EST documented in this encounter Results * US OB BPP W NON-STRESS (02/06/2025 9:27 AM EST)Anatomical Region LateralityModalityOtherSpecimen (Source)Anatomical Location / Laterality Collection Method / VolumeCollection TimeReceived Time02/06/2025 9:27 AM EST Narrative 02/06/2025 9:29 AM EST The [facility] ?[address] ? [place] [address] ? Ultrasound Report ? Signed ? Patient: RAKEL,SUMMER N ?MR#: [id number] ?? : 2000 ?Acct:[id number] ?? Age/Sex: 24 / F ?ADM Date: 11/22/25 ?? Loc: [facility] ??250-1 ? Attending Dr: Sintia William D.O. ? Ordering Physician: Sintia Thomas D.O. ?? Date of Service: 02/06/25 ?? Procedure(s): US OB BPP w non-stress ?? Accession Number(s): [id number] ? cc: Sintia Thomas D.O.; DANNY PAYNE ? The [facility] ? [address] ? [place] [address] ? Patient Name: ?? ALETA CASTRO ? MRN: [facility]:[id number] ? date: 2000 ?Sex: F ?? Assigned Patient Location: [facility] ?? Current Patient Location: [facility] ?? Accession/Order Number: [id number] ?? Exam Date: 02/06/2025 ??09:05 ?Report Date: 02/06/2025 ??09:27 ? At the request of: ?? SINTIA ??WILLIAM ??DO ? Procedure: ??US OB BPP w non-stress ? Biophysical profile. ? Reason for exam: Gabby's disease ? COMPARISON: 02/03/2025 ? TECHNIQUE: Transabdominal imaging of the gravid uterus was obtained. ? FINDINGS: The wellness health coach reports a BPP of 8 out of 8. ??LYNN is normal at 18.8 ?? cm. ?? heart rate 165 bpm. ? US/US OB BPP w non-stress ?? IMPRESSION: BPP 8 out of 8. ? Impression dictated by: Jermaine Nguyễn Jr., D.O. ??02/06/2025 9:27 AM ? Dictation Location: [facility]--18 ? Electronically authenticated by: [id number] ??Y ?? Date: 02/06/2025 ??09:27 ? Dictated By: ?Jermaine Nguyễn M.D. ? Signed By: ?02/06/25 09 ? DD/ 6 ? TD/TT: ? Cotton Opener: Procedure Note Radiology, Radiologist, MD - 02/06/[address] [address] Ultrasound Report Signed Patient: ALETA CASTRO NMR#: [id number] : 2000Acct:[id number] Age/Sex: 24 / FADM Date: 02/06/25 Loc: [facility] 250-[address]: Sintia Thomas D.O. Ordering Physician: Sintia Thomas D.O. Date of Service: 02/06/25 Procedure(s): US OB BPP w non-stress Accession Number(s): [id number] cc: Sintia Thomas D.O.; DANNY PAYNE [place] [id number] Patient Name: ALETA CASTRO MRN: [facility]:[id number] date: 2000 Sex: F Assigned Patient Location: [facility] Current Patient Location: [facility] Accession/Order Number: [id number] Exam Date: 02/06/2025 09:05 Report Date: 02/06/2025 09:27 At the request of: SINTIA THOMAS DO Procedure: US OB BPP w non-stress Biophysical profile. Reason for exam: Gabby's disease COMPARISON: 02/03/2025 TECHNIQUE: Transabdominal imaging of the gravid uterus was obtained. FINDINGS: The wellness health coach reports a BPP of 8 out of 8. LYNN is normal at18.8 cm. heart rate 165 bpm. US/US OB BPP w non-stress IMPRESSION: BPP 8 out of 8. Impression dictated by: Jermaine Nguyễn Jr., D.O. 02/06/2025 9:27 AM Dictation Location: [place] [address] Electronically authenticated by: [id number] Y Date: 9:27 Dictated By: Jermaine Nguyễn M.D. Signed By:02/06/25928 DD/ 6 TD/TT: Cotton Opener: Authorizing ProviderResult TypeResult StatusCorey William DOCLINISYNC IMAGINGFinal Result documented in this encounter Visit Diagnoses Not on filedocumented in this encounter Care Teams Team MemberRelationshipSpecialtyStart DateEnd Date Danny Payne MD [address] [place] [address] PCP - GeneralFamily Medicine07/24/22 Danny Payne MD [address] [address] PCP - [facility]ig[facility]06/16/20documented as of this encounter
--- OUTSIDE RECORDS SUMMARY | 2025-02-09 14:40 | XMS_ITS | Clinical Summary ---
Author Organization [facility] Address [address] [address] Care Team Providers Care Brake Press Operator Name Role Phone Unavailable Primary Care Provider Unavailabl e Allergies Active AllergyReactionsCriticalityNoted SasyYlpifjqpNyrmvjelyljdLlndz42/05/2021 Other Reaction(s): hives IgputLpmsUxk18/05/2021 Other Reaction(s): Unknown FrrlxcvqpYmyjkur82/25/2023 Other Reaction(s): body numbness Medications MedicationSigDispense QuantityRefillsLast FilledStart DateEnd DateStatus ondansetron ODT (Zofran-ODT) 4 mg disintegrating tablet Take 4 mg by mouth if needed.Active no.37/iron/folic acid (PRENATA ORAL) Take by mouth in the morning.Active Active Problems ProblemNoted DateDiagnosed Date28 weeks gestation of yopkrmixh26/14/2025bnormal bleeding in menstrual cycle02/19/2024Status post arthroscopic reconstruction of anterior cruciate ligament of left knee using quadricepstendon autograft 05/10/2023cute pain of left knee4Chronic eqsdwey7612/10/2022igarette ejlozc4312/10/2022yst of ovary12/10/2022Hashimoto's kbysekh6912/10/2022Hypotension determined by egdktjknsmo97/25/2023Juvenile osteochondrosis of tibial tuberosity 12/10/2022Non morbid obesity due to excess ejrmjsim81/25/2023ostural orthostatic tachycardia syndrome (POTS)12/14/20189994Lecuiltqoni06/15/2019Syncope and /15/2019CommentsYes Encounters DateTypeDepartmentCare IphxXbdehnyfjnp91/12/2025 3:20 PM EDTOffice Visit [facility] [address] [place] [address] Bibi Singh MD Syncope and [...] file05/09/2023CommentsYesSex and Gender InformationValueDate RecordedSex Assigned at GkrefUtwhkv12/08/2025 2:10 PM EDT Legal AfnYyilkg71/29/2022 11:55 PM EDTGender NlqegenpBvwiqm70/08/2025 2:10 PM EDTSexual OrientationHeterosexual or Ratyhjam09/08/2025 2:10 PM EDT Last Filed Vital Signs Vital SignReadingTime TakenCommentsBlood Lrwkdoob526/8009 4:02 PM EDT Grxpz571011/27/2024 4:02 PM EDTTemperature--Respiratory Rate--Oxygen Qrfzelediw48% 11/27/2024 4:02 PM EDTInhaled Oxygen Concentration--Vwefic04 kg (172 lb) 11/27/2024 4:02 PM DJKVvwyfr780.1 cm (5' 5 )11/27/2024 4:02 PM EDTBody Mass Index28.62011/27/2024 4:02 PM EDT Plan of Treatment Health MaintenanceDue DateLast DoneCommentsIPV Vaccines (4 of 4 - 4-dose series) , [birth year]Depression Gpixcffpi08/25/2012 Varicella Vaccines (2 of 2 - 2-dose childhood series)HPV Vaccines (1 - 3-dose series)06/09/2014dult Hwfyorv30COVID-19 Vaccine (1 - season)2024Influenza Vaccine (#1)2024Pap Smear Zoster Vaccines (1 of 2)Pneumococcal Vaccine: Pediatrics (0 to 5 Years) and At-Risk Patients (6 to 64 Years)Aged Out 03/26/2000No longer eligible based on patient's age to complete this topicHIB PbaoaagnKzsitiryg38/27/2001, 09/11/2000, 03/26/2000, Additional history exists Meningococcal WprllwxJxtcsqidl75/28/2017Meningococcal B VaccineAged OutNo longer eligible based on patient's age to complete this topicRotavirus VaccinesAged Out No longer eligible based on patient's age to complete this topic Insurance
--- OUTSIDE RECORDS SUMMARY | 2025-02-09 14:40 | XMS_ITS | Encounter Summary ---
Author Organization [facility] Address [address] [place] [address] Care Team Providers Care Language Therapist Name Role Phone Danny Payne MD Primary Care Provider [phone] Danny Payne MD Unavailable [phone] Encounter Details DateTypeDepartmentCare Team (Latest Contact Info)Gcgsmfycukh92/19/2025Clinisync Result Encounter [facility] External Department Unsolicited Sintia Thomas, DO [address] [facility] [place] [address] Social History Tobacco UseTypesPacks/DayYears UsedDateSmoking Tobacco: Some [...] or organizations such as druze groups, unions, fraDesignMedix or athletic groups, or school groups?No12/11/2022How often [...] food, housing, medical care, and heating?Somewhat hard 12/11/2022[facility] [place] of Occupational Health - Occupational Stress QuestionnaireAnswerDate RecordedDo you feel stress - tense, restless, nervous, or anxious, or unable to sleep at night because yourmind is troubled all the time - these days?Only a cafuao8012/11/2022Exercise Vital SignAnswerDate Recorded On average, how many [...] degree you have received?11th grade12/10/2022Estimated Date of JswkpsotEergjaniCib69/06/2025Based on last menstrual period of 05/16/2024Sex and Gender InformationValueDate RecordedSex Assigned at YdmruWeacwe71/25/2023 10:10 AM EDTLegal LnkMgsote58/15/2023 6:51 PM EDTGender GlbbddqmRzdkhs56/25/2023 10:10 AM EDTSexual OrientationNot on filedocumented as of this encounter Plan of Treatment Not on file documented as of this encounter Procedures Procedure NamePriorityDate/TimeAssociated DiagnosisCommentsUS OB BPP W NON-MDMTBN9702/03/2025 11:41 PM EST documented in this encounter Results * US OB BPP W NON-STRESS (02/03/2025 11:41 PM EST)Anatomical Region LateralityModalityOtherSpecimen (Source)Anatomical Location / Laterality Collection Method / VolumeCollection TimeReceived Time02/03/2025 11:41 PM EST Narrative 02/03/2025 11:43 PM EST The [facility] ?[address] ? [place] [address] ? Ultrasound Report ? Signed ? Patient: RAKEL,SUMMER N ?MR#: [id number] ?? : 2000 ?Acct:[id number] ?? Age/Sex: 24 / F ?ADM Date: 11/19/25 ?? Loc: US ? Attending Dr: Sintia Thomas D.O. ? Ordering Physician: Sintia Thomas D.O. ?? Date of Service: 02/03/25 ?? Procedure(s): US OB BPP w non-stress ?? Accession Number(s): [id number] ? cc: Sintia Thomas D.O.; DANNY PAYNE ? [facility] ? [address] ? [place] [address] ? Patient Name: ?? ALETA Kristina CASTRO ? MRN: [facility]:[id number] ? date: 2000 ?Sex: F ?? Assigned Patient Location: US ?? Current Patient Location: ? Accession/Order Number: [id number] ?? Exam Date: 02/03/2025 ??14:59 ?Report Date: [...] M.D. ??02/03/2025 11:41 PM ? Dictation Location: [facility]--20 ? Electronically authenticated by: [id number] ??Y ?? Date: 02/03/2025 ??23:41 ? Dictated By: ?Loi Ellington D.O. ? Signed By: ?02/03/25 2343 ? DD/ 2341 ? TD/TT: ? Advanced Seal Delivery System: Procedure Note Radiology, Radiologist, MD - 02/03/[address] [address] Ultrasound Report Signed Patient: ALETA CASTRO#: [id number] : 2000Acct:[id number] Age/Sex: 24 / FADM Date: 02/03/25 Loc: US Attending Dr: Sintia Thomas D.O. Ordering Physician: Sintia Thomas D.O. Date of Service: 02/03/25 Procedure(s): US OB BPP w non-stress Accession Number(s): [id number] cc: Sintia Thomas D.O.; DANNY PAYNE [place] [address] Patient Name: ALETA CASTRO MRN: [facility]:[id number] date: 2000 Sex: F Assigned Patient Location: US Current Patient Location: Accession/Order Number: [id number] Exam Date: 02/03/2025 14:59 Report Date: 02/03/2025 [...] Ellington M.D. 02/03/2025 11:41 PM Dictation Location: [place] [address] Electronically authenticated by: [id number] Y Date: 3:41 Dictated By: Loi Ellington D.O. Signed By:02/03/252342 DD/ 40 TD/TT: Advanced Se[employer] Delivery System: Authorizing ProviderResult TypeResult StatusCorey William DOCLINISYNC IMAGINGFinal Result documented in this encounter Visit Diagnoses Not on filedocumented in this encounter Care Teams Team MemberRelationshipSpecialtyStart DateEnd Date Danny Payne MD [address] [facility] [address] [place] [phone] (Fax) PCP - GeneralFamily Medicine07/24/22 Danny Payne MD [address] [place] [address] KAT - [employer]06/16/20documented as of this encounter
--- OUTSIDE RECORDS SUMMARY | 2025-02-09 14:40 | XMS_ITS | Encounter Summary ---
Author Organization [facility] Address [address] [place] [address] Care Team Providers Care Streetcar Starter Name Role Phone Danny Schuler MD Primary Care Provider [phone] Danny Schuler MD Unavailable [phone] Encounter Details DateTypeDepartmentCare Team (Latest Contact Info)Tsfvgsjzkyv00/19/2025Bamboo flowsheet KYE Willis [facility] [address] [facility] [place] [id number] Doc Thomas DO [address] [facility] [address] [place], [place] [address] Social History Tobacco UseTypesPacks/DayYears UsedDateSmoking Tobacco: Some [...] relatives?Once a week12/11/2022How often do you attend hoahaoism or orthodoxy services?More than 4 times per year12/11/2022o you belong to any clubs or organizations such as hoahaoism groups, unions, fraternal or athletic groups, or [...] housing, medical care, and heating?Somewhat hard 12/11/2022[facility] [place] of Occupational Health - Occupational Stress QuestionnaireAnswerDate RecordedDo you feel stress - tense, restless, nervous, or anxious, or unable to sleep at night because yourmind is troubled all the time - these days?Only a dvrrde4012/11/2022Exercise Vital SignAnswerDate Recorded On average, how many [...] degree you have received?11th grade12/10/2022Estimated Date of PpgpksccVbzzhbjqMtj16/06/2025Based on last menstrual period of 05/16/2024Sex and Gender InformationValueDate RecordedSex Assigned at XavtwHnpfdu17/25/2023 10:10 AM EDTLegal DipJgzcst04/15/2023 6:51 PM EDTGender SftxvqovYjurfn49/25/2023 10:10 AM EDTSexual OrientationNot on filedocumented as of this encounter Plan of Treatment Not on file documented as of this encounter Visit Diagnoses Not on filedocumented in this encounter Care Teams Team MemberRelationshipSpecialtyStart DateEnd Date Danny Schuler MD [address] [place] [address] PCP - GeneralFamily Medicine07/24/22 Danny Schuler MD [address] [place] [address] PCP - Ziggy Richard06/16/20documented as of this encounter
--- OUTSIDE RECORDS SUMMARY | 2025-02-09 14:40 | XMS_ITS | Clinical Summary ---
Author Organization [facility] Address [address] [place] [address] Care Team Providers Care International Travel Consultant Name Role Phone Danny Payne MD Primary Care Provider [phone] Danny Payne MD Unavailable [phone] Allergies Active AllergyReactionsCriticalityNoted ZcsyMsgquhhuIlzsxuwcinpgOired34/05/2021 Other Reaction(s): hives EznkkHndsWnn91/05/2021 Other Reaction(s): Unknown Qcviyfdre73/25/2023 Other Reaction(s): body numbness Medications MedicationSigDispense QuantityRefillsLast FilledStart DateEnd DateStatus ondansetron (Zofran) 4 MG tablet Indications:Nausea and vomiting in ([facility])Take 1 tablet (4 mg) by mouth every 6 (six) hours if needed for nausea or vomiting for up to 30 doses Take 1 tablet by mouth every 6 hours as needed for nausea. 30 tablet 5Active Active Problems ProblemNoted DateDiagnosed DateAbnormal bleeding in menstrual cycle02/19/2024 Status post arthroscopic reconstruction of anterior cruciate ligament of left knee using quadricepstendon uykqglgfq68/23/2024cute pain of left knee04/22/2023 Chronic gewgtoc3012/10/2022igarette alkcqq9912/10/2022yst of ovary12/10/2022 Gabby's rlemqhq7112/10/2022Hypotension determined by yhktwjfeluc68/25/2023 Juvenile osteochondrosis of tibial tsoewkvqha53/25/2023Non morbid obesity due to excess vhxlbovi94/25/2023ostural orthostatic tachycardia syndrome (POTS) 12/10/2022Subclinical lyqfmzhtnmfnng23/25/2023Estimated Date of Delivery JbnxbwhdNlx57/06/2025Based on last menstrual period of 05/16/2024 Resolved Problems ProblemNoted DateDiagnosed DateResolved DateOverweight (BMI 25.0-29.9)12/10/2022 02/19/2024 Encounters DateTypeDepartmentCare YplsRfhcsoknzgb63/25/2025 1:20 [place] [address] Pretty Chaidez PA Third trimester ([facility]); 38 weeks gestation of ([facility])02/09/2025amboo flowsheet [facility] [place] [address] Pretty Chaidez PA 02/06/2025linisync Result Encounter NOMS External Department Unsolicited Sintia Thomas, 02/03/2025 1:30 PM ESTRoutine [facility] [place] [address] Sintia Thomas, DO Third trimester ([facility]); 37 weeks gestation of ([facility])02/03/2025linisync Result Encounter NOMS External Department Unsolicited Sintia Thomas, 02/03/2025amboo flowsheet [facility] [place] [place] [address] Sintia Thomas, 01/27/2025 1:40 PM ESTRoutine [facility] [place] [address] Sintia Thomas, DO 36 weeks gestation of ([facility]); Third trimester ([facility]); Gabby's disease; Low hemoglobin; Heart palpitations; Pelvic pressure in ([facility])11/12/2025Clinisync Result Encounter NOMS External Department Unsolicited Sintia Thomas, DO 5Bamboo flowsheet [facility] [place] [facility] [address] [place] [address] Sintia Thomas, DO 5Clinisync Result Encounter NOMS External Department Unsolicited Sintia Thomas, DO 01/23/2025linisync Result Encounter NOMS External Department Unsolicited Sintia Thomas, DO 01/22/2025Telephone [facility] [address] [place] [phone] Sintia Thomas, DO 01/20/2025 1:50 PM ESTRoutine [facility] [address] [place] [address] Pretty Chaidez PA Third trimester ([facility]); 35 weeks gestation of ([facility])01/20/2025linisync Result Encounter NOMS External Department Unsolicited Sintia Thomas, DO 5Bamboo flowsheet [facility] [place] [facility] [address] [place] [address] Pretty Chaidez PA 01/11/2025linisync Result Encounter NOMS External Department Unsolicited Sintia Thomas, DO 01/05/2025 1:00 PM EDTRoutine [facility] [place] [phone] Sintia Thomas, DO Third trimester ([facility]); 33 weeks gestation of ([facility])5Bamboo flowsheet [facility] [place] [facility] [address] [place] [phone] Sintia Thomas, DO 5Clinisync Result Encounter NOMS External Department Unsolicited Provider, Generic External Data 12/26/2024linisync Result Encounter NOMS External Department Unsolicited Provider, Generic External Data 12/26/2024linisync Result Encounter NOMS External Department Unsolicited Provider, Generic External Data 12/26/2024linisync Result Encounter NOMS External Department Unsolicited Sintia Thomas DO 12/23/2024 2:00 PM EDTRoutine [facility] [place] [facility] [address] [facility] [place] [address] Jessica Steen, [place] Third trimester ([facility]); 31 weeks gestation of ([facility])12/23/2024Refill [facility] [address] [facility] [place] [address] Azalea Schmitz MA Nausea and vomiting in ([facility])12/23/2024amboo flowsheet [facility] [address] [facility] [place] [address] Jessica Steen NP 12/09/2024 2:00 PM EDTRoutine [facility] [place] [facility] [address] [facility] [place] [address] Sintia Thomas DO Third trimester ([facility]); 29 weeks gestation of ([facility]); Yeast rnpglokte86/24/2025amboo flowsheet [facility] [place] [facility] [address] [facility] [place] [address] Sintia Thomas, 12/01/2024Telephone [facility] [place] [facility] [address] [facility] [place] [address] Azalea Schmitz MA 11/27/2024bstract [facility] [place] [facility] [address] [facility] [place] [address] Sintia Thomas, 11/25/2024 1:50 PM EDTRoutine [facility] [place] [facility] [address] [facility] [place] [address] Jessica Steen, [place] Second trimester ([facility]); 27 weeks gestation of ([facility]); Gabby's rciwlrl24/10/2025Bamboo flowsheet [facility] [address] [facility] [place] [address] Jessica Steen NP 5Clinisync Result Encounter NOMS External Department Unsolicited Provider, Generic External Data 11/19/2024Telephone [facility] [address] [facility] [place] [address] Janet Narayanan MA 11/12/2024linisync Result Encounter NOMS External Department Unsolicited Provider, Generic External Data from Last 3 Months Immunizations ImmunizationAdministration DatesNext DueDTaP / HiB / IPV1999,1999 DTaP / Hib03/26/2000Hep A, ped/adol, 2 dose03/31/2012,08/31/2011Hep B, Adolescent or Msryiaxzo53/27/2001,1999,1999Hep B, adult11/12/2016Hib (HbOC)09/11/2000Hib / Hep B009/11/2000IPV09/11/2000MMR09/11/2000Meningococcal DDF1E3311/12/2016Pneumococcal Conjugate PCV 7003/26/20009617Atbr33/15/2012Varicella 08/31/2011 Family History Medical HistoryRelationNameCommentsNo Known ProblemsBrotherHyperlipidemia [...] week12/11/2022How often do you attend hinduism or congregational services?More than 4 times per year12/11/2022o you belong to any clubs or organizations such as hinduism groups, unions, fraternal or athletic carmen ups, or school groups?No12/11/2022How often do you attend meetings of the clubs or organizations you belong to?Never12/11/2022re you , , , , never , or living with a partner?Qkeksux1112/11/2022 AUDIT-CAnswerDate RecordedQ1: How often do you have [...] food, housing, medical care, and heating?Somewhat hard12/11/2022 [place] [employer] - Occupational Stress Questionnaire AnswerDate RecordedDo you feel stress - tense, restless, nervous, or anxious, or unable to sleep at night because yourmind is troubled all the time - these days? Only a jhbzgx5012/11/2022Exercise Vital SignAnswerDate RecordedOn average, how many days [...] and Gender Information ValueDate RecordedSex Assigned at XpjeeJtkhdy59/25/2023 10:10 AM EDTLegal Sex Bbfddu70/ 6:51 PM EDTGender RazqfdpeDzkill78/25/2023 10:10 AM EDTSexual OrientationNot on file Last Filed Vital Signs Vital SignReadingTime TakenCommentsBlood Lhqwjuyx672/8202/09/2025 1:38 PM EST Jwbyy217202/19/2024 3:26 PM TNNXryxdbgirzv77.4 ??C (97.5 ??F)05/03/2023 11:22 AM ESTRespiratory Rate--Oxygen Wvpjmxosps17%02/19/2024 3:26 PM ESTInhaled Oxygen Concentration--Myfqna08.8 kg (176 lb)02/09/2025 1:38 PM EAACxrnvw823.6 cm (5' 4 )02/26/2024 3:41 PM ESTBody Mass Index30. 3:41 PM EST Plan of Treatment Health MaintenanceDue DateLast DoneCommentsPneumococcal Vaccine: Pediatrics (0 to 5 Years) and At-Risk Patients (6 to 64 Years) (1 of 2 - PCV)06/09/2018 03/26/2000COVID-19 Vaccine (1 - season)2024Influenza Vaccine (#1) 2025Postponed from 11/16/2024 (Patient Refused) Procedures Procedure NamePriorityDate/TimeAssociated DiagnosisCommentsPOCT URINALYSIS FXGJPCYLPpihrmp26/25/2025 1:43 PM EST 38 weeks gestation of ([facility]) US OB BPP W NON-YDTPAM6902/06/2025 9:27 AM EST US OB BPP W NON-ZEZTFI5902/03/2025 11:41 PM EST POCT URINALYSIS JHUORFBWIneaxgs30/19/2025 1:45 PM EST 37 weeks gestation of ([facility]) POCT URINALYSIS TEFFZWJGOwcyvmx03/12/2025 2:14 PM EST 36 weeks gestation of ([facility]) Third trimester ([facility]) STREP GP B CULTURE+JPRGCiqqair94/12/2025 1:57 PM EST US OB BPP W NON-SFMEWJ2101/23/2025 9:25 AM EST ALL THYROID STIM KLWTMIRBgtafiq45/08/2025 8:09 AM EST US OB BPP W NON-FSXLDT7701/20/2025 5:10 PM EST POCT URINALYSIS OBZRWHRNMpolcfn96/05/2025 2:07 PM EST 35 weeks gestation of ([facility]) US OB BPP W NON-FSOFCI9001/11/2025 9:15 PM EDT POCT URINALYSIS MEONEYXOIlqmyps66/21/2025 1:04 PM EDT 33 weeks gestation of ([facility]) US OB BPP W NON-JYWEEQ4801/02/2025 3:02 PM EDT US OB TWNGUJ8712/26/2024 11:31 AM EDT US OB BPP W NON-TUHLUJ1212/26/2024 11:19 AM EDT ALL THYROID STIM QQWWUUKGxvxdlu76/11/2025 8:13 AM EDT POCT URINALYSIS KRLHTNBWBphxspr62/08/2025 2:01 PM EDT 31 weeks gestation of ([facility]) POCT URINALYSIS XQXAFCPGEsypsdv85/24/2025 2:14 PM EDT Third trimester ([facility]) POCT URINALYSIS BFNRCMVBFqbcpbs14/10/2025 3:33 PM EDT Second trimester ([facility]) CA ECHO DOPPLER BQRCJDAR91/09/2025 4:39 PM EDT ECG 12-LEAD11/12/2024 12:06 PM EDT from Last 3 Months Results * (ABNORMAL) POCT urinalysis dipstick manually resulted (02/09/2025 1:43 PM EST) Only the most recent of8 resultswithin the time period is included. ComponentValueRef RangeTest MethodAnalysis TimePerformed AtPathologist Signature Color, UAYellowClarity, UAClearGlucose, UANegativeNegative - 2000(110) ++++ mg/dLBilirubin, UANegativeNegative - 4(70) +++ mg/dLKetones, UANegativeNegative - 160(16) ++++ mg/dLSpec Grav, UA1.0101 - 1.03Blood, UANegativeNegative - 50 Randall/mcLpH, UA6.55 - 9Protein, UANegativeNegative - 2000(20) ++++ mg/dL Urobilinogen, UA1.00.2 - 12 mg/dLLeukocytes, UATraceNegative - 500+++ Rick/mcL Nitrite, UANegativeNegative - PositiveSpecimen (Source)Anatomical Location / LateralityCollection Method / VolumeCollection TimeReceived KjxzKsjdn38/25/2025 1:43 PM EST Narrative Authorizing ProviderResult TypeResult StatusInova Mount [facility] Hospital TEST ENTER/EDIT ORDERABLESFinal Result * US OB BPP W NON-STRESS (02/06/2025 9:27 AM EST) Only the most recent of7 resultswithin the time period is included. Anatomical RegionLateralityModalityOtherSpecimen (Source)Anatomical Location / LateralityCollection Method / VolumeCollection TimeReceived Time02/06/2025 9:27 AM EST Narrative 02/06/2025 9:29 AM EST [facility] ?[address] ? [place] [address] ? Ultrasound Report ? Signed ? Patient: RAKEL,SUMMER N ?MR#: [id number] ?? : 2000 ?Acct:[id number] ?? Age/Sex: 24 / F ?ADM Date: 11/22/25 ?? Loc: [facility] ??250-1 ? Attending Dr: Sintia Thomas D.O. ? Ordering Physician: Sintia Thomas D.O. ?? Date of Service: 02/06/25 ?? Procedure(s): US OB BPP w non-stress ?? Accession Number(s): [id number] ? cc: Sintia Thomas D.O.; DANNY PAYNE ? [facility] ? [address] ? [place] [address] ? Patient Name: ?? ALETA Acevedo RAKEL ? MRN: [facility]:[id number] ? date: 2000 ?Sex: F ?? Assigned Patient Location: FBC ?? Current Patient Location: FB ?? Accession/Order Number: [id number] ?? Exam Date: 02/06/2025 ??09:05 ?Report Date: 02/06/2025 ??09:27 ? At the request of: ?? SINTIA ??WILLIAM ??DO ? Procedure: ??US OB BPP w non-stress ? Biophysical profile. ? Reason for exam: Gabby's disease ? COMPARISON: 02/03/2025 ? TECHNIQUE: Transabdominal imaging of the gravid uterus was obtained. ? FINDINGS: The meter technician reports a BPP of 8 out of 8. ??LYNN is normal at 18.8 ?? cm. ?? heart rate 165 bpm. ? US/US OB BPP w non-stress ?? IMPRESSION: BPP 8 out of 8. ? Impression dictated by: Isaias Awad Jr..O. ??02/06/2025 9:27 AM ? Dictation Location: [facility]- ? Electronically authenticated by: [id number] ??Y ?? Date: 02/06/2025 ??09:27 ? Dictated By: ?Jermaine Nguyễn M.D. ? Signed By: ?02/06/25 0929 ? DD/ 0927 ? TD/TT: ? Steam Service Inspector: Procedure Note Radiology, Radiologist, MD - 02/06/[address] [address] Ultrasound Report Signed Patient: ALETA CASTRO NMR#: [id number] : 2000Acct:[id number] Age/Sex: 24 / FADM Date: 02/06/25 Loc: [facility] 250-[address]: Sintia Thomas D.O. Ordering Physician: Sintia Thomas D.O. Date of Service: 02/06/25 Procedure(s): US OB BPP w non-stress Accession Number(s): [id number] cc: Sintia Thomas D.O.; DANNY PAYNE [place] [id number] Patient Name: ALETA CASTRO MRN: [facility]:[id number] date: 2000 Sex: F Assigned Patient Location: [facility] Current Patient Location: [facility] Accession/Order Number: [id number] Exam Date: 02/06/2025 09:05 Report Date: 02/06/2025 09:27 At the request of: SINTIA THOMAS DO Procedure: US OB BPP w non-stress Biophysical profile. Reason for exam: Gabby's disease COMPARISON: 02/03/2025 TECHNIQUE: Transabdominal imaging of the gravid uterus was obtained. FINDINGS: The meter technician reports a BPP of 8 out of 8. LYNN is normal at18.8 cm. heart rate 165 bpm. US/US OB BPP w non-stress IMPRESSION: BPP 8 out of 8. Impression dictated by: Jermaine Nguyễn Jr., D.O. 02/06/2025 9:27 AM Dictation Location: [place] [address] Electronically authenticated by: [id number] Y Date: 9:27 Dictated By: Jermaine Nguyễn M.D. Signed By:02/06/25928 DD/ 6 TD/TT: Steam Service Inspector: Authorizing ProviderResult TypeResult StatusCorey William DOCLINISYNC IMAGINGFinal Result * STREP GP B CULTURE+RFLX (01/27/2025 [...] is noted.TBHSTREP GP B CULTURE+RFLX Performed at: [facility]+DXOS[address] [place], [place] [id number] GP B CULTURE+RFLXLab Director: Boris Quigley PhD, Phone: [phone] (Source)Anatomical Location / Laterality Collection Method / VolumeCollection TimeReceived Time01/27/2025 1:57 PM EST 01/27/2025 8:34 PM EST Narrative [facility] - 02/01/2025 3:08 PM EST Authorizing ProviderResult TypeResult StatusCorey William DOLAB BLOOD ORDERABLES Final ResultPerforming OrganizationAddressCity/State/ZIP CodePhone Number [facility] * (ABNORMAL) ALL THYROID STIM HORMONE [...] EDT Narrative 12/26/2024 11:33 AM EDT [facility] ?[address] ? [place] [id number] ? Ultrasound Report ? Signed ? Patient: ALETA CASTRO ?MR#: [id number] ?? : 2000 ?Acct:[id number] ?? Age/Sex: 24 / F ?ADM Date: 12/26/24 ?? Loc: US ? Attending Dr: Sintia Thomas D.O. ? Ordering Physician: Sintia Thomas D.O. ?? Date of Service: 12/26/24 ?? Procedure(s): US OB growth ?? Accession Number(s): [id number] ? cc: Sintia Thomas D.O.; DANNY PAYNE ? [facility] ? [address] ? [place] [address] ? Patient Name: ?? ALETA CASTRO ? MRN: [facility]:[id number] ? date: 2000 ?Sex: F ?? Assigned Patient Location: US ?? Current Patient Location: ? Accession/Order Number: [id number] ?? Exam Date: 12/26/2024 ??09:00 ?Report Date: [...] 52 bpm. ? motion documented by the meter technician.. ? Estimated weight 2093 g 71.4%. ? [...] Dictation Location: RADIO-PC-29 ? Electronically authenticated by: [id number] ??Y ?? Date: 12/26/2024 ??11:31 ? Dictated By: ?Deshaun Aguilar M.D. ? Signed By: ?10/11/25 1133 ? DD/ 1131 ? TD/TT: ? Steam Service Inspector: Procedure Note Radiology, Radiologist, MD - 12/26/2024 The [place] [id number] Ultrasound Report Signed Patient: ALETA CASTRO#: [id number] : 2000Acct:[id number] Age/Sex: 24 / FADM Date: 12/26/24 Loc: US Attending Dr: Sintia Thomas D.O. Ordering Physician: Sintia Thomas D.O. Date of Service: 12/26/24 Procedure(s): US OB growth Accession Number(s): [id number] cc: Sintia Thomas D.O.; DANNY PAYNE The [address] [address] Patient Name: ALETA CASTRO MRN: [facility]:[id number] date: 2000 Sex: F Assigned Patient Location: US Current Patient Location: Accession/Order Number: [id number] Exam Date: 12/26/2024 09:00 Report Date: 12/26/2024 11:31 At the request of: SINTIA THOMAS DO Procedure: US OB growth Obstetric ultrasound for growth INDICATION: Gabby's disease FINDINGS: Single live anterior cephalic presentationlongitudinal lie. Amniotic fluid index 12.4 cm between the gestational age fifth pod30iq percentile. Largest pocket of fluid 5.1 cm. heart rate 1 52 bpm. motion documented by the meter technician.. Estimated weight 2093 g 71.4%. Gestation age 32 weeks and 0 days. Biparietal diameter 7.93 m. Head circumference 30.7 cm. Otherwise the 10.6 cm. Abdominal circumference 28.9 cm. Femur length 6.4 cm. US/US OB growth IMPRESSION: Single live intrauterine of approximately 30 weeks Impression dictated by: Deshaun Aguilar M.D. 12/26/2024 11:31 AM Dictation Location: [place] [address] Electronically authenticated by: [id number] Y Date: 1:31 Dictated By: Deshaun Aguilar M.D. Signed By:12/26/24 1133 DD/ 1131 TD/TT: Steam Service Inspector: Authorizing ProviderResult TypeResult StatusGeneric External Data Provider CLINISYNC IMAGINGFinal Result * CA ECHO DOPPLER COMPLETE (11/24/2024 4:39 PM EDT)Anatomical RegionLaterality ModalityOtherSpecimen (Source)Anatomical Location / LateralityCollection Method / VolumeCollection TimeReceived Time11/24/2024 4:39 PM EDT Narrative 11/24/2024 4:40 PM EDT [facility] ?[address] ? [place] [address] ? Cardiology Report ? Signed ? Patient: RAKEL,ALETA N ?MR#: [id number] ?? : 2000 ?Acct:[id number] ?? Age/Sex: 24 / F ?ADM Date: 11/12/24 ?? Loc: CARD ? Attending Dr: Jessica Steen ? Ordering Physician: Jessica Steen ?? Date of Service: 11/12/24 ?? Procedure(s): CA echo doppler complete ?? Accession Number(s): [id number] ? cc: Jessica Steen; DANNY PAYNE ? Patient Name: ? summer ? MR#: [id number] ? : 2000 ? Exam Date: 11/12/2024 ?? Ordering Doctor: JESSICA STEEN STONEMASON APPRENTICE ? ECHOCARDIOGRAM REPORT ? PROCEDURE: ? CA [...] 1640 ? DD/ 1639 ? TD/TT: ? Steam Service Inspector: Procedure Note Radiology, Radiologist, MD - 11/24/2024 [place] [address] Cardiology Report Signed Patient: ALETA CASTRO NMR#: [id number] : 2000Acct:[id number] Age/Sex: 24 / FADM Date: 11/12/24 Loc: CARD Attending Dr: Jessica Steen Ordering Physician: Jessica Steen Date of Service: 11/12/24 Procedure(s): CA echo doppler complete Accession Number(s): [id number] cc: Jessica Steen; DANNY PAYNE Patient Name: ALETA CASTRO MR#: [id number] : 2000 Exam Date: 11/12/2024 Ordering Doctor: JESSICA STEEN [facility] ECHOCARDIOGRAM REPORT PROCEDURE: CA ECHO DOPPLER [...] M.D. Signed By:11/24/24 1640 DD/ 1639 TD/TT: Steam Service Inspector: Authorizing ProviderResult TypeResult StatusGeneric External Data Provider CLINISYNC IMAGINGFinal Result * ECG 12-LEAD (11/12/2024 12:06 PM EDT)Anatomical RegionLateralityModalityOther Specimen (Source)Anatomical Location / LateralityCollection Method / Volume Collection TimeReceived Time11/12/2024 12:06 PM EDT Narrative 11/13/2024 1:34 PM EDT [facility] ?[address] ? [place] [address] ? Electrocardiograph Report ? Signed ? Patient: RAKEL,SUMMER N ?MR#: [id number] ?? : 2000 ?Acct:[id number] ?? Age/Sex: 24 / F ?ADM Date: 08/28/25 ?? Loc: CARD ? Attending Dr: Jessica Steen ? Ordering Physician: Jessica Steen ?? Date of Service: 11/12/24 ?? Procedure(s): ECG 12 lead ?? Accession Number(s): [id number] ? cc: ?[facility] ? Test Date: ?2024-11-12 ?? Pat Name: ? SUMMER RAKEL ?Department: ? Room: ? - ?? Gender: ? Female ? 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 : ?2000 ? Requested By: JESSICA STEEN ?? Order Number: [id number] ?Reading MD: ?? Bibi Singh ? Measurements ?? Intervals ?Newman ? Rate: ? 79 ? P: ?42 ?? DE: ? 158 ?QRS: ?81 ?? QRSD: ? 90 ? T: ?41 ?? QT: ? 353 ? QTc: ?405 ? Interpretive Statements ?? SINUS RHYTHM ?? Normal EKG ?? No previous ECG available for comparison ?? Electronically Signed On 11-13-2024 13:34:21 EDT by Bibi Singh ? Dictated By: ?Bibi Singh M.D. ? Signed By: ?08/29/25 1334 ?11/13/24 1334 ? DD/ 1206 ? TD/TT: ? 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 Signed By:11/13/24 1334 11/13/24 1334 DD/ 1206 TD/TT: Steam Service Inspector: Authorizing ProviderResult TypeResult StatusGeneric External Data Provider CLINISYNC IMAGINGFinal Result from Last 3 Months Insurance Care Teams Team MemberRelationshipSpecialtyStart DateEnd Date Danny Payne MD [address] [address] PCP - GeneralFamily Medicine07/24/22 Danny Payne MD [address] [address] PCP - [place] [facility]06/16/20
--- OUTSIDE RECORDS SUMMARY | 2025-02-09 14:40 | XMS_ITS | Encounter Summary ---
Author Organization [facility] Address [address] [place] [address] Care Team Providers Care [employer] Name Role Phone Danny Schuler MD Primary Care Provider [phone] Danny Schuler MD Unavailable [phone] Encounter Details DateTypeDepartmentCare Team (Latest Contact Info)Aknhgbobcbi75/25/2025amboo flowsheet KYE Willis OBGYKristina [address] [place] [id number] Pretty Chaidez PA [address] [place], [place] [address] Social History Tobacco UseTypesPacks/DayYears UsedDateSmoking Tobacco: Some [...] relatives?Once a week12/11/2022How often do you attend anglican or zoroastrian services?More than 4 times per year12/11/2022o you belong to any clubs or organizations such as anglican groups, unions, fraCoworkingON or athletic groups, or school groups?No12/11/2022How often [...] and heating?Somewhat hard 12/11/2022[facility] [place] [facility] - Occupational Stress QuestionnaireAnswerDate RecordedDo you feel stress - tense, restless, nervous, or anxious, or unable to sleep at night because yourmind is troubled all the time - these days?Only a uiekru6412/11/2022Exercise Vital SignAnswerDate Recorded On average, how many [...] degree you have received?11th grade12/10/2022Estimated Date of WtfvxhfrIpccpolvOyi40/06/2025Based on last menstrual period of 05/16/2024Sex and Gender InformationValueDate RecordedSex Assigned at PvlntRmmcmi69/25/2023 10:10 AM EDTLegal YyfSzjvzg23/15/2023 6:51 PM EDTGender NnowpjvlBwfmjj50/25/2023 10:10 AM EDTSexual OrientationNot on filedocumented as of this encounter Plan of Treatment Not on file documented as of this encounter Visit Diagnoses Not on filedocumented in this encounter Care Teams Team MemberRelationshipSpecialtyStart DateEnd Date Danny Schuler MD [address] [place] [address] PCP - GeneralFamily Medicine07/24/22 Danny Schuler MD [address] [place] [address] PCP - Ziggy Richard06/16/20documented as of this encounter
--- OUTSIDE RECORDS SUMMARY | 2025-02-09 14:42 | XMS_ITS | CCD ---
Author Organization [facility] CliniSyne Care Team Providers Care Sand Caster Name Role Phone BECERRIL, DAVID P Unavailable [...] Unavailable MD Rosalie Payne Primary Care Provider [phone] DO Marcelle Espinosa Attending Provider Marcelle Espinosa Attending Unavailable Marcelle Espinosa Admitting Unavailable Rosalie Payne Primary Care Unavailable Rosalie Payne MD Primary Care Provider [phone] Rosalie Payne MD Primary Care Provider Rosalie [...] Allergen(s)Allergy TypeDate of OnsetReaction(s) FacilityLatex (1 source)LatexSubstance Xepzphy22-21-5245WowbPlwng HealthMacrolides (antibiotic) (1 source)AzithromycinDrug Rvaqhfp82-55-1219OtevkJdtuo Health (20 sources)Azithromycin; Translations: [azithromycin]Drug Etfkltl92-29-4919 [facility] (11 sources)Latex; Translations: [Latex]Propensity to adverse reactions to drug 58-66-9516GahcJncge Health (1 source)AzithromycinDrug Idrcoyw39-39-1923Wgf [facility] Repository (1 source)natural latex rubberDrug allergy (disorder)The [facility] Repository (2 sources)Banana Extract; Translations: [Banana]Drug AllergyVomiting (disorder) [facility] (20 sources)Midodrine; Translations: [midodrine]Drug Moxcmxq28-67-1758FadupezcAv[facility] (20 sources)LatexAllergy to slrsaauvy01-98-6019PwghIQLL Healthcare (1 source)AzithromycinDrug Hqlnnig28-07-6449[facility]dvnljWay[facility] Rep[facility] (1 source)LatexDrug allergy (disorder)93-05-5622AwmsxphivWayne Hospital Repository Medications Current Medications MedicationDrug Class(es)DatesSig (Normalized)Sig (Original)[id number] 200 actuat albuterol 0.09 mg/actuat metered dose inhaler (2 sources)beta2-Adrenergic AgonistStart: 70-49-1338lios 2 puff(s) by inhalation four times daily as neededAlbuterol Sulfate HFA 108 (90 Base) MCG/ACT 2 puffs Inhalation 4 times a day prn Aug, ActiveStart: 39-20-9403ezph 2 puff(s) by inhalation four times daily as neededAlbuterol Sulfate HFA 108 (90 Base) MCG/ACT 2 puffs Inhalation 4 times a day prn Aug, Not-Taking/PRN fluconazole 150 mg oral tablet (2 sources)Azole AntifungalStart: 12-09-2024 End: 78-37-8201yyhtllouect (Diflucan) 150 MG tablet Indications: Yeast infection Take 1 tablet (150 mg) by mouth 1(one) time for 1 dose Repeat in 7 days if symptoms persist. 2 tablet 12/09/2024 12/09/2024 Activefluticasone propionate 0.05 mg/actuat metered dose nasal spray (4 sources)CorticosteroidStart: 49-57-9140mgehnmgretj (Flonase) 50 MCG/ACT nasal sprayStart: 53-95-2840kqst 1 spray(s) nasal route once dailyFluticasone Propionate 50 MCG/ACT 1 spray in each nostril Nasally Once a day for 14 15 Mar, 2023 ActiveStart: 19-44-1869whsp 2 spray(s) nasal route once daily as needed Fluticasone Propionate 50 MCG/ACT 2 sprays Nasally Once a day for 14 day(s) Aug, Not-Taking/PRNStart: 90-61-3875lbxt 2 spray(s) nasal route once daily Fluticasone Propionate 50 MCG/ACT 2 sprays Nasally Once a day for 14 day(s) Aug, Activeibuprofen 600 mg oral tablet (20 sources)Nonsteroidal Anti-inflammatory DrugStart: 89-47-6846mfmc 1 tablet by mouth four times daily as needed for painibuprofen (ADVIL;MOTRIN) 600 MG tablet Take 1 tablet by mouth 4 times daily as needed for Pain 30 tablet 0 12/14/2020 Active End: 99-99-7354spbwvgcgs 200 MG tablet Take by mouth. 07/16/2024 Discontinued magnesium oxide 400 mg oral tablet (5 sources)Start: 07-16-2024 End: 25-44-3962ence 1 tablet by mouth once dailymagnesium oxide (Mag-Ox) 400 MG tablet Indications: Cluster headache, not intractable, unspecified chronicity pattern Take 1 tablet (400 mg) by mouth Daily 30 tablet 6 07/16/2024 08/15/2024 Activeondansetron 4 mg oral tablet (20 sources)Serotonin-3 Receptor AntagonistStart: 40-13-5851ogoe 1 tablet by mouth every six hours as needed for nausea and nausea, then take 1 tablet by mouthevery six hours as needed for nausea and nauseaondansetron (Zofran) 4 MG tablet Indications: Nausea and vomiting in ([facility]) Take 1 tablet (4 mg) by mouth every 6 (six) hours if needed for nausea or vomiting for up to 30 doses Take 1 tablet by mouth every 6 hours as needed for nausea. 30 tablet 12/23/2024 ActiveStart: 10-05-2024 End: 49-27-9433fnuz 1 tablet by mouth every six hours for nauseaondansetron ODT (Zofran-ODT) 4 MG disintegrating tablet Indications: Nausea and vomiting during ([facility]) Take 1 tablet (4 mg) by mouth every 6 (six) hours if needed for nausea or vomiting 30 tablet 3 10/05/2024 11/04/2024 ActiveStart: 08-26-2024 End: 61-53-2557cexv 1 tablet by mouth every six hours for nauseaondansetron ODT (Zofran-ODT) 4 MG disintegrating tablet Indications: Nausea and vomiting during ([facility]) Take 1 tablet (4 mg) by mouth every 6 (six) hours if needed for nausea or vomiting 30 tablet 3 08/26/2024 09/30/2024 ActiveStart: 07-06-2024 End: 18-16-5971lyay 1 tablet by mouth every six hours for nauseaondansetron ODT (Zofran-ODT) 4 MG disintegrating tablet Indications: Nausea and vomiting during Take 1 tablet (4 mg) by mouth every 6 (six) hours if needed for nausea or vomiting 30 tablet 2 07/06/2024 08/05/2024 Activepenicillin v potassium 500 mg oral tablet (1 source)Start: 66-33-6963wwom 1 tablet by mouth every eight hoursPenicillin V Potassium 500 MG 1 tablet Orally tid for 10 day(s) 14 Apr, 2021 Active polysaccharide iron complex 391 mg oral capsule (5 sources)Start: 11-05-2024 End: 60-06-6150qldd 1 capsule by mouth once dailyiron polysaccharides (ProFe) 391.3 (180 Fe) MG capsule Indications: Low hemoglobin Take 1 capsule (391.3 mg) by mouth Daily 30 capsule 3 11/05/2024 12/05/2024 ActivetiZANidine 4 mg oral tablet (2 sources)Central alpha-2 Adrenergic AgonistStart: 76-97-1546zmix 1 tablet by mouth every eight hours as needed for paintiZANidine (ZANAFLEX) 4 MG tablet Take 1 tablet by mouth every 8 hours as needed (pain and muscle tension/cramps) 10 tablet 0 12/14/2020 Active Completed/Discontinued Medications MedicationDrug Class(es)DatesSig (Normalized)Sig (Original)acetaminophen 325 mg oral tablet (1 source)Start: 09-19-2020 End: 22-33-6034tcronvokaahco (TYLENOL) tablet 650 mgCitalopram (7 sources)Serotonin Reuptake InhibitorCitalopram Hydrobromide Not-Taking/PRN take 1 tablet by mouth once dailycitalopram (CELEXA) 20 MG tablet Take 20 mg by mouth daily 0 ActiveCitalopram Hydrobromide Activeclotrimazole 10 mg oral lozenge (3 sources)Azole AntifungalStart: 60-47-3266Iutwkooierey 10 MG 1 wenceslao Mouth/Throat Three times a day for 7 day(s) Apr, Not-Taking/PRN medroxyPROGESTERone (4 sources)ProgestinDepo-Provera Not-Taking/PRNDepo-Provera Activemetoclopramide 10 mg oral tablet (12 sources)Dopamine-2 Receptor AntagonistStart: 07-16-2024 End: 25-38-8734wcjizszhmkhvct (Reglan) 10 MG tablet Indications: Nausea/vomiting in [...] tablet (2 sources)Nonsteroidal Anti-inflammatory DrugStart: 05-24-2021 End: 85-73-9051wvkjvxii sodium (ANAPROX) tablet 550 mgStart: 34-01-1594hsao 1 tablet by mouth twice daily at mealtimenaproxen (NAPROSYN) 500 MG tablet Take 1 tablet by mouth 2 times daily (with meals) 20 tablet 1 05/24/2021 Active pantoprazole 40 mg delayed release oral tablet (17 sources)Proton Pump InhibitorStart: 02-17-2024 End: 01-95-1067cpaw 1 tablet by mouth before mealtimepantoprazole (ProtoNix) 40 MG EC tablet Take 40 mg by mouth in the morning. Take before meals. 02/17/2024 09/30/2024 DiscontinuedpredniSONE 20 mg oral tablet (3 sources)Start: 01-09-2198lhew 1 tablet by mouth every twelve hourspredniSONE 20 MG 1 tablet Orally 2 times a day for 5 day(s) Aug, Not-Taking/PRN Start: 84-97-5198zhtc 1 tablet by mouth every twelve hourspredniSONE 20 MG 1 tablet Orally bid for 5 day(s) Apr, Active Problems Active Problems Problem ClassificationProblemDateDocumented DateEpisodic/ChronicAbdominal pain (11 sources)Pelvic and perineal pain; Translations: [Right lower quadrant pain] Onset: 97-71-5871GpaxovcrRkcrtxm dysrhythmias (20 sources)Postural orthostatic tachycardia syndrome ; Translations: [Postural orthostatic tachycardia syndrome (POTS)]Onset: 882945-98-2692Tzzqbro Cardiac dysrhythmias (4 sources)Palpitations; Translations: [Palpitations]56-56-6811Ljsyoikp Coagulation and hemorrhagic disorders (1 source)Qualitative platelet defects; 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]Onset: 29-51-2360RbnnmbqMbopioiiqi disorders (4 sources)Gastroesophageal reflux disease; Translations: [Gastro-esophageal reflux disease without esophagitis]01-29-9073UtpcmkdQnfwrbjf; including migraine (1 source)Cluster headache; Translations: [Cluster headache syndrome, unspecified, not intractable]58-30-4065TtuiidnSjlolybmthicw and screening for infectious disease (4 sources)Contact with and (suspected) exposure to other viral communicable diseases; Translations: [Exposureto sexually transmissible disorder]Onset: 04-07-2021 Resolved: 22-24-5680AllcnfbnPelghqi and fatigue (20 sources)Fatigue; Translations: [Chronic fatigue, unspecified]Onset: 364740-04-5330SyynnubGagzmjmai disorders (20 sources)Disorder of menstruation; Translations: [Irregular menstruation, unspecified]Onset: 847187-75-8207MmpimqfYvnlxef (3 sources)Candidal stomatitis; Translations: [Mycosis]Onset: 05-11-2021 Resolved: 06-93-8397ZzykowceTcqcoi and vomiting (4 sources)Nausea; Translations: [Nausea]53-23-5573ZlbbzirtOvseh bone disease and musculoskeletal deformities (20 sources)[place] Schlatter disease; 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]Onset: 974003-90-1172BudwtejGizwm circulatory disease (1 source)Postural orthostatic tachycardia -87-1815RzmqeewvFomfv complications of (1 source)Vomiting of , unspecified; Translations: [Unspecified vomiting of , unspecified as to episode of care or not applicable] 08-88-1764JqgzqqphOhbex gastrointestinal disorders (2 sources)Diarrhea; Translations: [Diarrhea, unspecified]55-18-9824Lbibyzkf Other gastrointestinal disorders (2 sources)Diarrhea, unspecified; Translations: [Diarrhea]05-64-8316Cstxmikc Other gastrointestinal disorders (1 source)Dysphagia; Translations: [Dysphagia, unspecified]12-12-9118Yrzrojqp Other gastrointestinal disorders (1 source)Dysphagia, unspecified; Translations: [Dysphagia, unspecified] 28-83-5830VwjogulsJvpxn injuries and conditions due to external causes (1 source)Closed injury of head; Translations: [Unspecified injury of head, initial encounter]EpisodicOther injuries and conditions due to external causes (1 source)Injury of coccyx; Translations: [Unspecified injury of lower back, initial encounter]EpisodicOther injuries and conditions due to external causes (2 sources)Injury of left knee; Translations: [Unspecified injury of left lower leg, initial encounter]18-10-3869CmpdhljhJvyig nutritional; endocrine; and metabolic disorders (20 sources)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 imbalance; Translations: [Other obesity due to excess calories]Onset: 014724-63-2336RcfkzcdMutuf nutritional; endocrine; and metabolic disorders (1 source)H/O: oduzvefkwzdzuo85-75-3790HuyfwrreJejdu and delivery including normal (20 sources); Translations: [Encounter for supervision of normal , unspecified, unspecified trimester]40-36-2087SwkwhnnnZitsq screening for suspected conditions (not mental disorders or infectious disease) (8 sources)Encounter for screening for malignant neoplasm of cervix; Translations: [Patient encounter status]Onset: 59-71-5337DzdnzbbwCmigc upper respiratory infections (9 sources)Streptococcal sore throat; Translations: [Strep throat]Onset: 05-01-2021 Resolved: 75-18-1496LeddftceWhjzrhql codes; unclassified (2 sources)Gestation period, 11 weeks; Translations: [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 ]82-94-2387OkfrvrkyZqepdkqf codes; unclassified (2 sources)Gestation period, 15 weeks; Translations: [15 weeks gestation of ]79-54-9597ZqcbhhdqFzoidwyq codes; unclassified (2 sources)Gestation period, 19 weeks; Translations: [19 weeks gestation of ]81-44-3619NycnqmhoGipyxilf codes; unclassified (2 sources)Gestation period, 23 weeks; Translations: [23 weeks gestation of ]52-92-7800EzswesydKabwseok codes; unclassified (2 sources)Gestation period, 27 weeks; Translations: [27 weeks gestation of ]90-72-9967GtfmnqqyNvazeaxo codes; unclassified (2 sources)Gestation period, 29 weeks; Translations: [29 weeks gestation of ]80-27-4698QiqqwdtiElisnzup codes; unclassified (2 sources)Gestation period, 31 weeks; Translations: [31 weeks gestation of ]53-28-5754PcstclghZwfhpjcq codes; unclassified (2 sources)Gestation period, 33 weeks; Translations: [33 weeks gestation of ]01-06-9767XqivlkxaRyfolvwo codes; unclassified (2 sources)Gestation period, 35 weeks; Translations: [35 weeks gestation of ]23-19-8101CorippbpNqnfkcuar-related disorders (20 sources)Cigarette smoker ; Translations: [Nicotine dependence, cigarettes, uncomplicated]Onset: 166970-68-1418DaghvrxXmsueoijucy injury; contusion (1 source)Contusion of left knee; Translations: [Contusion of left knee, initial encounter]EpisodicSyncope (2 sources)Syncope; Translations: [Syncope]Onset: 57-64-5147RmpklorfNbbjggg disorders (20 sources)Evan thyroiditis; Translations: [Autoimmune thyroiditis]Onset: 534281-58-9463CwcirikLhesaknahgmk (2 sources)Unknown / UNK(Unknown)Onset: 15-77-8895Gxhushyfhjow (2 sources)New Patient; Translations: [New Patient]Onset: 31-73-5502Kpxyorwiqkrc (2 sources)POTSOnset: 11-27-2024 Past or Other Problems Problem ClassificationProblemDateDocumented DateEpisodic/ChronicChronic obstructive pulmonary disease and bronchiectasis (1 source)Bronchitis, not specified as acute or chronicOnset: 08-21-2021 Resolved: 26-07-3473LdehpcjhLspqwijjp (5 sources)Influenza; Translations: [Influenza A]Other circulatory disease (4 sources)Orthostatic hypotension; Translations: [ORTHOSTATIC HYPOTENSION] Onset: 01-76-7414XiobhwfjQyrob circulatory disease (20 sources)Low blood pressure; Translations: [Hypotension, unspecified]Onset: 495479-84-1357IfcqbssdAbpoa non-traumatic joint disorders (20 sources)Pain in left knee; Translations: [Pain in joint, lower leg]Onset: 908129-93-8721UyzflqgiTryov nutritional; endocrine; and metabolic disorders (20 sources)Body mass index 25-29 - overweight; Translations: [Overweight]Onset: 12-10-2022 Resolved: 248230-20-8943VcxxefmwYmnuevu cyst (20 sources)Cyst of ovary; Translations: [Unspecified ovarian cyst, unspecified side]Onset: 401424-97-6553Wnmutjck Results Test NameValueInterpretationReference RangeFacilityALL THYROID STIM HORMONEon 35-97-3137Lrlleqyxnfuztq and review of laboratory resultsAbnormalNOMercy Hospital [facility] TSH Qn0.159 m[IU]/LLowNOMD HealthcareCLINISYNCNOMS HealthcareUS OB BPP W NON-STRESSon 19-32-9563Qdx[place] [address] Ultrasound Report Signed Patient: ALETA CASTRO MR#: [id number] : 2000 Acct:[id number] Age/Sex: 24 / F ADM Date: 01/23/25 Loc: US Attending Dr: Doc Thomas D.O. Ordering Physician: Doc Thomas D.O. Date of Service: 01/23/25 Procedure(s): US OB BPP w non-stress Accession Number(s): [id number] cc: Doc Thomas D.O.; ROSALIE PAYNE [place] [id number] Patient Name: ALTEA CASTRO MRN: [id number] date: 2000 Sex: F Assigned Patient Location: [facility] Current Patient Location: [facility] Accession/Order Number: [id number] Exam Date: 01/23/2025 08:41 Report Date: 01/23/2025 [...] Dalton M.D. 01/23/2025 9:25 AM Dictation Location: [place] [address] Electronically authenticated by: [id number] Y Date: 01/23/2025 09:25 Dictated By: Emmanuel Dalton M.D. Signed By: 01/23/25927 DD/ 4 TD/TT: Motor Teacher:NINAHRadiology, Radiologist, - 01/23/2025 [place] [address] Ultrasound Report Signed Patient: ALETA CASTRO MR#: [id number] : 2000 Acct:[id number] Age/Sex: 24 / F ADM Date: 01/23/25 Loc: US Attending Dr: Doc Thomas D.O. Ordering Physician: Doc Thomas D.O. Date of Service: 01/23/25 Procedure(s): US OB BPP w non-stress Accession Number(s): [id number] cc: Doc Thomas D.O.; ROSALIE PAYNE [place] [address] Patient Name: ALETA CASTRO MRN: [id number] date: 2000 Sex: F Assigned Patient Location: [facility] Current Patient Location: [facility] Accession/Order Number: [id number] Exam Date: 01/23/2025 08:41 Report Date: 01/23/2025 [...] Dictation Location: [facility] Electronically authenticated by: [id number] Y Date: 01/23/2025 09:25 Dictated By: Emmanuel Dalton M.D. Signed By: 01/23/25927 DD/ 4 TD/TT: Motor Teacher: KYE HealthcareRadiology Study observation (narrative)NOMS HealthcareUS OB BPP W NON-STRESSOrdered By: Radiologist Radiology on 73-71-6112EEYG [employer] Work Phone: US OB BPP W NON-STRESSon 58-59-5586Fqx[place] [address] Ultrasound Report Signed Patient: ALETA CASTRO MR#: [id number] : 2000 Acct:[id number] Age/Sex: 24 / F ADM Date: 01/20/25 Loc: [facility] Attending Dr: Doc Thomas D.O. Ordering Physician: Doc Thomas D.O. Date of Service: 01/20/25 Procedure(s): US OB BPP w non-stress Accession Number(s): [id number] cc: Doc Thomas D.O.; ROSALIE PAYNE [place] [phone] Patient Name: ALETA CASTRO MRN: [id number] date: 2000 Sex: F Assigned Patient Location: [facility] Current Patient Location: Accession/Order Number: [id number] Exam Date: 01/20/2025 15:17 Report Date: 01/20/2025 [...] Ellington M.D. 01/20/2025 5:10 PM Dictation Location: [facility] Electronically authenticated by: [id number] Y Date: 01/20/2025 17:10 Dictated By: Loi Ellington D.O. Signed By: 01/20/251712 DD/ 09 TD/TT: Motor Teacher:MARTINEadiologkehinde, Radiologist, - 01/20/2025 [place] [address] Ultrasound Report Signed Patient: ALETA CASTRO MR#: [id number] : 2000 Acct:[id number] Age/Sex: 24 / F ADM Date: 01/20/25 Loc: [facility] Attending Dr: Doc Thomas D.O. Ordering Physician: Doc Thomas D.O. Date of Service: 01/20/25 Procedure(s): US OB BPP w non-stress Accession Number(s): [id number] cc: Doc Thomas D.O.; ROSALIE PAYNE [place] [address] Patient Name: ALETA CASTRO MRN: [id number] date: 2000 Sex: F Assigned Patient Location: [facility] Current Patient Location: Accession/Order Number: [id number] Exam Date: 01/20/2025 15:17 Report Date: 01/20/2025 [...] Ellington M.D. 01/20/2025 5:10 PM Dictation Location: [facility] Electronically authenticated by: [id number] Y Date: 01/20/2025 17:10 Dictated By: Loi Ellington D.O. Signed By: 01/20/251712 DD/ 09 TD/TT: Motor Teacher: [facility] HealthcareRadiology Study observation (narrative)NOMS HealthcareUS OB BPP W NON-STRESSOrdered By: Radiologist Radiology on 89-23-1164GCDF [facility] Work Phone: Urinalysis macro (dipstick) panel [...] mg/dLNOMS HealthcareNOMS HealthcareUS OB BPP W NON-STRESSon 48-34-4759[address] [address] Ultrasound Report Signed Patient: ALETA CASTRO MR#: [id number] : 2000 Acct:[id number] Age/Sex: 24 / F ADM Date: 01/11/25 Loc: US Attending Dr: Doc Thomas D.O. Ordering Physician: Doc Thomas D.O. Date of Service: 01/11/25 Procedure(s): US OB BPP w non-stress Accession Number(s): [id number] cc: Doc Thomas D.O.; ROSALIE PAYNE The [address] [phone] Patient Name: ALETA CASTRO MRN: [id number] date: 2000 Sex: F Assigned Patient Location: [facility] Current Patient Location: Accession/Order Number: [id number] Exam Date: 01/11/2025 15:03 Report Date: 01/11/2025 [...] Aguilar M.D. 01/11/2025 9:15 PM Dictation Location: [place] [address] Electronically authenticated by: [id number] Y Date: 01/11/2025 21:15 Dictated By: Deshaun Aguilar M.D. Signed By: 01/11/252117 DD/ 14 TD/TT: Motor Teacher:MARTINEadiology, Radiologist, MD - 01/11/2025 [place] [address] Ultrasound Report Signed Patient: ALETA CASTRO MR#: [id number] : 2000 Acct:[id number] Age/Sex: 24 / F ADM Date: 01/11/25 Loc: US Attending Dr: Doc Thomas D.O. Ordering Physician: Doc Thomas D.O. Date of Service: 01/11/25 Procedure(s): US OB BPP w non-stress Accession Number(s): [id number] cc: Doc Thomas D.O.; ROSALIE PAYNE [place] [phone] Patient Name: ALETA CASTRO MRN: [id number] date: 2000 Sex: F Assigned Patient Location: [facility] Current Patient Location: Accession/Order Number: [id number] Exam Date: 01/11/2025 15:03 Report Date: 01/11/2025 [...] 8 score biophysical profile. Impression dictated by: Dehsaun Aguilar M.D. 01/11/2025 9:15 PM Dictation Location: [place] [address] Electronically authenticated by: [id number] Y Date: 01/11/2025 21:15 Dictated By: Deshaun Aguilar M.D. Signed By: 01/11/252117 DD/ 14 TD/TT: Motor Teacher: KYE HealthcareRadiology Study observation (narrative)NOMS HealthcareUS OB BPP W NON-STRESSOrdered By: Radiologist Radiology on 59-35-2145FLRM [facility] Work Phone: Urinalysis macro (dipstick) panel [...] mg/dLNOMS HealthcareNOMS HealthcareUS OB BPP W NON-STRESSon 79-16-3376BpkWest [place] [address] Ultrasound Report Signed Patient: ALETA CASTRO MR#: [id number] : 2000 Acct:[id number] Age/Sex: 24 / F ADM Date: 01/02/25 Loc: US Attending Dr: Doc Thomas D.O. Ordering Physician: Doc Thomas D.O. Date of Service: 01/02/25 Procedure(s): US OB BPP w non-stress Accession Number(s): [id number] cc: Doc Thomas D.O.; ROSALIE PAYNE [place] [phone] Patient Name: ALETA CASTRO MRN: [id number] date: 2000 Sex: F Assigned Patient Location: [facility] Current Patient Location: Accession/Order Number: [id number] Exam Date: 01/02/2025 09:00 Report Date: 01/02/2025 [...] Dalton M.D. 01/02/2025 3:02 PM Dictation Location: [place] [address] Electronically authenticated by: [id number] Y Date: 01/02/2025 15:02 Dictated By: Emmanuel Dalton M.D. Signed By: 01/02/25 1505 DD/ 1502 TD/TT: Motor Teacher:TBHRadiology, Radiologist, - 01/02/2025 [place] [address] Ultrasound Report Signed Patient: ALETA CASTRO MR#: [id number] : 2000 Acct:[id number] Age/Sex: 24 / F ADM Date: 01/02/25 Loc: US Attending Dr: Doc Thomas D.O. Ordering Physician: Doc Thomas D.O. Date of Service: 01/02/25 Procedure(s): US OB BPP w non-stress Accession Number(s): [id number] cc: Doc Thomas D.O.; ROSALIE PAYNE [address] [address] Patient Name: ALETA CASTRO MRN: [id number] date: 2000 Sex: F Assigned Patient Location: [facility] Current Patient Location: Accession/Order Number: [id number] Exam Date: 01/02/2025 09:00 Report Date: 01/02/2025 [...] Dalton M.D. 01/02/2025 3:02 PM Dictation Location: [place] [address] Electronically authenticated by: [id number] Y Date: 01/02/2025 15:02 Dictated By: Emmanuel Dalton M.D. Signed By: 01/02/25 1507 DD/ 150 TD/TT: Motor Teacher: KYE HealthcareRadiology Study observation (narrative)NOMS HealthcareUS OB BPP W NON-STRESSOrdered By: Radiologist Radiology on 43-99-0696TNKZCitizens Memorial Healthcare Work Phone: aLL THYROID STIM HORMONEon 98-90-1454Cqtvlofnirnqjm and review of laboratory resultsAbnoPaoli Hospital Qn0.131 m[IU]/LLow NOMS HealthcareCLINISYNCNOMS HealthcareUS OB BPP W NON-STRESSon 12-26-2024 [place] [address] Ultrasound Report Signed Patient: ALETA CASTRO MR#: [id number] : 2000 Acct:[id number] Age/Sex: 24 / F ADM Date: 12/26/24 Loc: US Attending Dr: Doc Thomas D.O. Ordering Physician: Doc Thomas D.O. Date of Service: 12/26/24 Procedure(s): US OB BPP w non-stress Accession Number(s): [id number] cc: Doc Thomas D.O.; ROSALIE PAYNE [address] [address] Patient Name: ALETA CASTRO MRN: [id number] date: 2000 Sex: F Assigned Patient Location: [place] Current Patient Location: Accession/Order Number: [id number] Exam Date: 12/26/2024 09:00 Report Date: 12/26/2024 [...] 12/26/2024 11:19 AM Dictation Location: [place] [address] Electronically authenticated by: [id number] Y Date: 12/26/2024 11:19 Dictated By: Deshaun Aguilar M.D. Signed By: 12/26/24 1122 DD/ 1119 TD/TT: Motor Teacher:TBHRadiology, Radiologist, MD - 12/26/2024 [place] [address] Ultrasound Report Signed Patient: ALETA CASTRO MR#: [id number] : 2000 Acct:[id number] Age/Sex: 24 / F ADM Date: 12/26/24 Loc: US Attending Dr: Doc Thomas D.O. Ordering Physician: Doc Thomas D.O. Date of Service: 12/26/24 Procedure(s): US OB BPP w non-stress Accession Number(s): [id number] cc: Doc Thomas D.O.; ROSALIE PAYNE The [address] [address] Patient Name: ALETA CASTRO MRN: [id number] date: 2000 Sex: F Assigned Patient Location: US Current Patient Location: Accession/Order Number: [id number] Exam Date: 12/26/2024 09:00 Report Date: 12/26/2024 [...] 12/26/2024 11:19 AM Dictation Location: [place] [address] Electronically authenticated by: [id number] Y Date: 12/26/2024 11:19 Dictated By: Deshaun Aguilar M.D. Signed By: 12/26/24 1122 DD/ 1119 TD/TT: Motor Teacher: KYE HealthcareRadiology Study observation (narrative)NOMS HealthcareUS OB BPP W NON-STRESSOrdered By: Radiologist Radiology on 99-99-8515HWQK Healthcare Work Phone: US OB GROWTHon 34-53-2410Ukc[place] [address] Ultrasound Report Signed Patient: ALETA CASTRO MR#: [id number] : 2000 Acct:[id number] Age/Sex: 24 / F ADM Date: 12/26/24 Loc: US Attending Dr: Doc Thomas D.O. Ordering Physician: Doc Thomas D.O. Date of Service: 12/26/24 Procedure(s): US OB growth Accession Number(s): [id number] cc: Doc Thomas D.O.; ROSALIE PAYNE [place] [id number] Patient Name: ALETA CASTRO MRN: [id number] date: 2000 Sex: F Assigned Patient Location: Current Patient Location: Accession/Order Number: [id number] Exam Date: 12/26/2024 09:00 Report Date: 12/26/2024 11:31 At the request of: DOC THOMAS DO Procedure: US OB growth Obstetric ultrasound for growth INDICATION: Evan's disease FINDINGS: Single live anterior cephalic presentation longitudinal lie. Amniotic fluid index 12.4 cm between the gestational age fifth and 95th percentile. Largest pocket of fluid 5.1 cm. heart rate 1 52 bpm. motion documented by the extern.. Estimated weight 2093 g 71.4%. Gestation age 32 weeks and 0 days. Biparietal diameter 7.93 m. Head circumference 30.7 cm. Otherwise the 10.6 cm. Abdominal circumference 28.9 cm. Femur length 6.4 cm. US/US OB growth IMPRESSION: Single live intrauterine of approximately 30 weeks Impression dictated by: Deshaun Aguilar M.D. 12/26/2024 11:31 AM Dictation Location: [place] [address] Electronically authenticated by: [id number] Y Date: 12/26/2024 11:31 Dictated By: Deshaun Aguilar M.D. Signed By: 12/26/24 1133 DD/ 1131 TD/TT: Motor Teacher:TBHRadiology, Radiologist, MD - 12/26/2024 [place] [address] Ultrasound Report Signed Patient: ALETA CASTRO MR#: [id number] : 2000 Acct:[id number] Age/Sex: 24 / F ADM Date: 12/26/24 Loc: Attending Dr: Doc Thomas D.O. Ordering Physician: Doc Thomas D.O. Date of Service: 12/26/24 Procedure(s): US OB growth Accession Number(s): [id number] cc: Doc Thomas D.O.; ROSALIE PAYNE [address] [address] Patient Name: ALETA CASTRO MRN: [id number] date: 2000 Sex: F Assigned Patient Location: Current Patient Location: Accession/Order Number: [id number] Exam Date: 12/26/2024 09:00 Report Date: 12/26/2024 11:31 At the request of: DOC THOMAS DO Procedure: US OB growth Obstetric ultrasound for growth INDICATION: Evan's disease FINDINGS: Single live anterior cephalic presentation longitudinal lie. Amniotic fluid index 12.4 cm between the gestational age fifth and 95th percentile. Largest pocket of fluid 5.1 cm. heart rate 1 52 bpm. motion documented by the extern.. Estimated weight 2093 g 71.4%. Gestation age 32 weeks and 0 days. Biparietal diameter 7.93 m. Head circumference 30.7 cm. Otherwise the 10.6 cm. Abdominal circumference 28.9 cm. Femur length 6.4 cm. US/US OB growth IMPRESSION: Single live intrauterine of approximately 30 weeks Impression dictated by: Deshaun Aguilar M.D. 12/26/2024 11:31 AM Dictation Location: [place] [address] Electronically authenticated by: [id number] Y Date: 12/26/2024 11:31 Dictated By: Deshaun Aguilar M.D. Signed By: 12/26/24 1133 DD/ 1131 TD/TT: Motor Teacher: KYE HealthcareRadiology Study observation (narrative)[facility] HealthcareUS OB GROWTHOrdered By: Radiologist Radiology on 59-88-3384DBXWCitizens Memorial Healthcare Work Phone: Urinalysis macro (dipstick) panel (U)on 12-23-2024 Bilirubin, UANegativeNegative - 4(70) +++ mg/dLNOMS HealthcareBlood, UANegative Negative - 50 Randall/mcLNOMS HealthcareClarity, UAClearNOMS HealthcareColor, UA YellowNOMS HealthcareGlucose, UA1+Negative - 1999(110) ++++ mg/dLNOMD Healthcare Interpretation and review of laboratory resultsAbnormalNOMD HealthcareKetones, UANegativeNegative - 160(16) ++++ mg/dLNOMS HealthcareLeukocytes, UATrace Negative - 500+++ Rick/mcLNOMS HealthcareNitrite, UANegativeNegative - Positive NOMS HealthcarepH, UA65 - 9NOMS HealthcareProtein, UANegativeNegative - 2000(20) ++++ mg/dLNOMS HealthcareSpec Grav, UA1.0151 - 1.03NOMS HealthcareUrobilinogen, UA2.00.2 - 12 mg/dLNOMS HealthcareNOMS HealthcareUrinalysis macro (dipstick) panel (U)on 98-30-4730Aftfxxvvf, UANegativeNegative - 4(70) +++ mg/dLNOMS HealthcareBlood, UANegativeNegative [...] UA0.20.2 - 12 mg/dLNOMS HealthcareNOMS HealthcareOffice Visiton 44-49-6619Kcgoqe-up visit [id number] Aleta Castro 2000 F Date Provider Department Center 11/27/2024 22390-HKSAQKLESA SINGH TRES [facility] Family History Family Status - Relation Status Age at Mother Alive Father Alive Level of Service:27[address] [place] OFFICE/OUTPATIENT NEW LOW MDM 30 MINUTES Reason for Visit and Comments: New Patient [632] - New patient here today to establish care with cardiology Syncope [506] POTS [Other] Positive tilt table [Other] 6 months [Other]NormalUnMarietta Memorial HospitalUrinalysis macro (dipstick) panel (U)on 57-98-3704Tuuvxrrxr, UAPositiveNegative - 4(70) +++ mg/dLNOMS HealthcareComment on [...] 12 mg/dLNOMS HealthcareNOMS HealthcareCA ECHO DOPPLER COMPLETEon 67-58-7646Mfn[place] [address] Cardiology Report Signed Patient: ALETA CASTRO MR#: [id number] : 2000 Acct:[id number] Age/Sex: 24 / F ADM Date: 11/12/24 Loc: CARD Attending Dr: Luna Steen Ordering Physician: Luna Steen Date of Service: 11/12/24 Procedure(s): CA echo doppler complete Accession Number(s): [id number] cc: Luna Steen; ROSALIE PAYNE Patient Name: ALETA CASTRO MR#: [id number] : 2000 Exam Date: 11/12/2024 Ordering Doctor: LUNA STEEN [facility] ECHOCARD[facility] REPORT PROCEDURE: CA ECHO DOPPLER [...] not included)...TBHRadiology, Radiologist, MD - 11/24/2024 [place] [address] Cardiology Report Signed Patient: ALETA CASTRO MR#: [id number] : 2000 Acct:[id number] Age/Sex: 24 / F ADM Date: 11/12/24 Loc: CARD Attending Dr: Luna Steen Ordering Physician: Luna Steen Date of Service: 11/12/24 Procedure(s): CA echo doppler complete Accession Number(s): [id number] cc: Luna Steen; ROSALIE PAYNE Patient Name: ALETA CASTRO MR#: [id number] : 2000 Exam Date: 11/12/2024 Ordering Doctor: LUNA STEEN [facility] ECHOCARDIOGRAM REPORT PROCEDURE: CA ECHO DOPPLER [...] Signed By: 11/24/24 1640 DD/ 1639 TD/TT: Motor Teacher: KYE [facility] HospitalRadiology Study observation (narrative)[facility] Memorial HealthcareCA ECHO DOPPLER COMPLETEOrdered By: Radiologist Radiology on 46-62-6852EWDE Healthcare Work Phone: ecg 12-LEADon 46-21-6575Clx[place] [address] Electrocardiograph Report Signed Patient: ALETA CASTRO MR#: [id number] : 2000 Acct:[id number] Age/Sex: 24 / F ADM Date: 11/12/24 Loc: CARD Attending Dr: Luna Steen Ordering Physician: Luna Steen Date of Service: 11/12/24 Procedure(s): ECG 12 lead Accession Number(s): [id number] cc: The [facility] Test Date: 2024-11-12 Pat Name: ALETA CASTRO Department: Room: - Gender: Female 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 Signed By: 11/13/24133311/13/24 133 DD/ 1206 TD/TT: Motor Teacher: KYE Garay 12-LEADOrdered By: Radiologist Radiology on 39-60-2164ARYK [employer] Work Phone: ECG 12-LEADon 71-53-6044Mejelzjwl Study observation (narrative)NOMS HealthcareALL CBC WITH AUTO DIFFon 73-47-3397IISKOYNKX ABSOLUTE ZKHF6TJFR HealthcareBasophils/100 WBC (Bld)0.2 %0.2 - 2.0 %[facility] Eosinophils/100 WBC (Bld)0.5 %Low0.9 - 7.0 %NOMS HealthcareErythrocyte distribution width (RBC) [Ratio]12.7 %11.0 - 15.0 %NOMS HealthcareHematocrit (Bld) [Volume fraction]31.2 %Low36.0 - 48.0 %NOM HealthcareHemoglobin (Bld) [Mass/Vol]10.8 g/dLLow12.0 - 16.0 g/dLNOMD HealthcareIMMATURE GRANULOCYTES ABS AUTO0.01NOMS HealthcareImmature granulocytes/100 WBC (Bld)0.2 %0.0 - 0.5 %NOM HealthcareInterpretation and review of laboratory resultsAbnormalNOMD Healthcare LYMPHOCYTES ABSOLUTE UTWU1FqvUVDX HealthcareLymphocytes/100 WBC (Bld)15 %Low20.5 - 60.0 %[facility]izens Memorial HealthcareMCH (RBC) [Entitic mass]32.3 pg26.7 - 34.0 pgNOMercy Hospital JoplinMCHC (RBC) [Mass/Vol]34.6 g/dL29.9 - 35.2 g/dLNOMercy Hospital JoplinMCV (RBC) [Entitic vol]93.4 fL81.0 - 99.0 fLNOMD HealthcareMONOCYTES ABSOLUTE AUTO0.5NOMS HealthcareMonocytes/100 WBC (Bld)7.7 %1.7 - 12.0 %NOMS HealthcareNEUTROPHILS ABSOLUTE NPFV5USLQ HealthcareNeutrophils/100 WBC (Bld)76.4 %High43.0 - 75.0 % NOM HealthcarePlatelet mean volume (Bld) [Entitic vol]9.7 fL9.5 - 13.5 fLNOMD HealthcareTBH EO #0NOMS HealthcareTBH RWG646MXYA HealthcareTB RBC3.34LowNOMS HealthcareTBH WBC6.6NOMS HealthcareCLINISYNCNOMS HealthcareIGP,APTIMA HPV,AGE GDLNon 90-66-9485RJH GDLN ACOG TESTINGNote.[facility] HealthcareComment on above:TESTS RESULT FLAG UNITS REF RANGE LAB Clinician Provided Cytology Information Source.............Endocervix No. of containers..01 ThinPrep Vial Age Ernieo CESAR Yaa... FLAG LEGEND: L-Low Normal,H-High Normal,LL-Alert Low,HH-Alert High <-Panic Low,>-Panic High,A-Abnormal,AA-Critical Abnormal Performed at: 01 =G [address] [address] Ludy Hector MD, IGP, RFX APTIMA HPV ASCUNote.[facility] HealthcareComment on above:TESTS RESULT FLAG UNITS REF RANGE LAB DIAGNOSIS: 02 NEGATIVE FOR INTRAEPITHELIAL LESION OR MALIGNANCY. THIS SPECIMEN WAS RESCREENED PART OF OUR SERVICE DIRECTOR PROGRAM. Specimen adequacy: 02 Satisfactory for evaluation. No endocervical component is identified. Performed by: 02 Brionna Mello Director Of Materials ([facility]) QC reviewed by: 02 Polina Simons Director Of Materials . 02 Note: Note 02 The Pap [...] <-Panic Low,>-Panic High,A-Abnormal,AA-Critical Abnormal Performed at: [address] [address] Ludy Hector MD, Performed at: = - [facility] [id number] Service Delivery Supervisor: Ludy Hector MD, Phone: [phone] Performed at: [facility] [address] [id number] Service Delivery Supervisor: Ludy Hector MD, Phone: [phone] BRUSH-SPATULA ENDOCERVIX CLINISYNCNOMS HealthcareRECURRENT VAGINITIS (HTRX)on 04-48-8839PTCRMNUJG VAGINAE 0NOMS HealthcareATOPOBIUM VAGINAENot detectedNOMS HealthcareBVAB 2,3 (BACTERIAL VAGINOSIS ASSOCIATED BACTERIA 2, 3); MOBILUNCUS FPV4ONIE HealthcareBVAB 2,3 (BACTERIAL VAGINOSIS ASSOCIATED BACTERIA 2, 3); MOBILUNCUS SPPNot detectedNOMS HealthcareCANDIDA ALBICANS, PARAPSILOSIS, VDJBUTCSNY2VILQ HealthcareCANDIDA ALBICANS, PARAPSILOSIS, TROPICALISNot detectedNOMS HealthcareCANDIDA GLABRATA0 NOMS HealthcareCANDIDA GLABRATANot detectedNOMS HealthcareCANDIDA UFKLOM9CSBE HealthcareCANDIDA KRUSEINot detectedNOMS HealthcareCHLAMYDIA PZKIUOWGVGM0EKYK HealthcareCHLAMYDIA TRACHOMATISNot detectedNOMS HealthcareGARDNERELLA VAGINALIS0 NOMS HealthcareGARDNERELLA VAGINALISNot detectedNOMS HealthcareMEGASPHAERA (TYPES 1, 2)0NOMS HealthcareMEGASPHAERA (TYPES 1, 2)Not detectedNOMS Healthcare MYCOPLASMA NZGBMODMZA4HBIQ HealthcareMYCOPLASMA GENITALIUMNot detectedNOMS HealthcareNEISSERIA PFGHEOKQJSV5VLSQ HealthcareNEISSERIA GONORRHOEAENot detected NOMS HealthcareTRICHOMONAS XWRHZEJVJ1VJWW HealthcareTRICHOMONAS VAGINALISNot detectedNOMS HealthcareNOMS HealthcareUrinalysis macro (dipstick) panel (U)on 29-88-2700Cgsqgwgia, UAPositiveNegative - 4(70) +++ mg/dLNOMS HealthcareBlood, UANegativeNegative [...] 12 mg/dLNOMS HealthcareNOMS HealthcareUS OB CERVICAL LENGTHon 31-62-4893Z[address] [address] Ultrasound Report Signed Patient: ALETA CASTRO MR#: [id number] : 2000 Acct:[id number] Age/Sex: 24 / F ADM Date: 10/06/24 Loc: US Attending Dr: Doc Thomas D.O. Ordering Physician: Doc Thomas D.O. Date of Service: 10/06/24 Procedure(s): US OB cervical length Accession Number(s): [id number] cc: Doc Thomas D.O.; ROSALIE PAYNE [place] [address] Patient Name: ALETA CASTRO MRN: [facility]:[id number] date: 2000 Sex: F Assigned Patient Location: US Current Patient Location: US Accession/Order Number: [id number] Exam Date: 10/06/2024 14:25 Report Date: 10/06/2024 [...] 10/06/2024 2:26 PM Dictation Location: [place] [address] Electronically authenticated by: [id number] Y Date: 10/06/2024 14:26 Dictated By: Jermaine Nguyễn M.D. Signed By: 10/06/24 1428 DD/ 1426 TD/TT: Motor Teacher:NINAHRadiology, Radiologist, MD - 10/06/2024 [place] [address] Ultrasound Report Signed Patient: ALETA CASTRO MR#: [id number] : 2000 Acct:[id number] Age/Sex: 24 / F ADM Date: 10/06/24 Loc: US Attending Dr: Doc Thomas D.O. Ordering Physician: Doc Thomas D.O. Date of Service: 10/06/24 Procedure(s): US OB cervical length Accession Number(s): [id number] cc: Doc Thomas D.O.; ROSALIE PAYNE [place] [id number] Patient Name: ALETA CASTRO MRN: [id number]:[id number] date: 2000 Sex: F Assigned Patient Location: US Current Patient Location: US Accession/Order Number: [id number] Exam Date: 10/06/2024 14:25 Report Date: 10/06/2024 [...] 10/06/2024 2:26 PM Dictation Location: [place] [address] Electronically authenticated by: [id number] Y Date: 10/06/2024 14:26 Dictated By: Jermaine Nguyễn M.D. Signed By: 10/06/24 1428 DD/ 25 TD/TT: Motor Teacher: KYE [facility] HospitalRadiology Study observation (narrative)[facility] OB CERVICAL LENGTHOrdered By: Radiologist Radiology on 46-60-3006IWHB [employer] Work Phone: US OB 14+ WEEKS ANATOMY SCANon 13-33-6575QR OB 14+ WEEKS ANATOMY SCANFINDINGS: A single, [...] Delivery: 02/20/25 Gestational Age as of 09/02/2024: 36j5aUjofsmbcja macro (dipstick) panel (U)on 35-23-3260Pmfyggude, UANegativeNegative - 4(70) +++ mg/dLNOMS HealthcareBlood, UANegativeNegative [...] mg/dLNOMS HealthcareNOMS Healthcare ALL THYROID STIM HORMONEon 17-99-7834PIS Qn0.836 m[IU]/LNOMS HealthcareCLINISYNC NOMS HealthcareUrinalysis macro (dipstick) panel (U)on 16-19-7985Crsevmmkj, UA NegativeNegative - 4(70) +++ mg/dLNOMS HealthcareBlood, [...] 12 mg/dLNOMS HealthcareNOMS HealthcareALL THYROID STIM HORMONEon 10-71-1629TZG Qn1.413 m[IU]/LNOMS HealthcareCLINISYNCNOMS HealthcareUrinalysis macro (dipstick) panel (U)on 57-51-7415Jhxqstwch, UANegativeNegative - 4(70) +++ mg/dLNOMS HealthcareBlood, UANegativeNegative [...] UA1.00.2 - 12 mg/dLNOMS HealthcareNOMS HealthcareBOX TESTon 35-26-3894WUR TEST SENT OUTUNITY NOMS FrymyealejAQH7KWULHACCB YbasxnqrzsCZP53/3/25NOMD HealthcareUNMOUNT CARM[facility] CLINISYNCNOMS HealthcareTBH DRUG SCREEN RAPID (URINE)on 01-55-1311SWNGHBKUDPW SCREEN URINENegativeNEGATIVENOMS HealthcareBARBITURATES SCREEN URINENegative NEGATIVENOMS HealthcareBENZODIAZEPINES [...] URINENegativeNEGATIVENOMS HealthcareCLINISYNCNOMS HealthcareHCG ( test) Ql (U)on 13-86-6567Bunimfavvqsvak and review of laboratory resultsAbnormalNOMS HealthcarePreg Test, UrPositiveNegativeNOMS HealthcareNOMS HealthcareUS OB TRANSVAGINALon 76-45-3933PF OB TRANSVAGINALEXAM: US OB TRANSVAGINAL HISTORY: Dating. [...] II, MD, PHD at 19-Jul-2024 08:55:15 PM [facility] TeleradiologyNormalNot AvailableComment on above:Order Comment: US OB TRANSVAGINAL No LMP recorded.Urinalysis macro (dipstick) panel (U)on 11-79-4966Qtqpmgenq, UA NegativeNegative - 4(70) +++ mg/dLNOMS HealthcareBlood, UANegativeNegative - 50 Randall/mcLNOMS HealthcareClarity, UAClearNOMS HealthcareColor, UAYellowNOMS HealthcareGlucose, UANegativeNegative - 2000(110) ++++ mg/dLNOMS Healthcare Interpretation and review of laboratory resultsNormalNOMD HealthcareKetones, UA NegativeNegative - 160(16) ++++ mg/dLNOMS HealthcareLeukocytes, UANegative Negative - 500+++ Rick/mcLNOMS HealthcareNitrite, UANegativeNegative - Positive NOMS HealthcarepH, UA6.55 - 9NOMS HealthcareProtein, UANegativeNegative - 2000(20) ++++ mg/dLNOMS HealthcareSpec Grav, UA1.021 - 1.03NOMS Healthcare Urobilinogen, UA1.00.2 - 12 mg/dLNOMS HealthcareNOMS HealthcareCBC W Auto Differential panel (Bld)on 02-60-1372Gyoe form neutrophils (Bld) [#/Vol]CANCELED NOMS HealthcareComment on above:Result canceled by the ancillary.Band form neutrophils/100 WBC (Bld)CANCELED%NOMS HealthcareComment on above:Result canceled by the ancillary.Basophils (Bld) [#/Vol]19 10*3/uLNOMS Healthcare Basophils/100 WBC (Bld)0.4 %NOM HealthcareBlasts (Bld) [#/Vol]CANCELED0 cells/uLNOMS HealthcareComment on above:Result canceled by the ancillary. Blasts/100 WBC (Bld)CANCELED%NOMS HealthcareComment on above:Result canceled by the ancillary.Eosinophils (Bld) [#/Vol]91 10*3/uLNOMS HealthcareEosinophils/100 WBC (Bld)1.9 %[facility] HealthcareErythrocyte distribution width (RBC) [Ratio]12.5 % 11.0 - 15.0 %NOM HealthcareHematocrit (Bld) [Volume fraction]38.9 %35.0 - 45.0 %[facility] HealthcareHemoglobin (Bld) [Mass/Vol]12.8 g/dL11.7 - 15.5 g/dLCitizens Memorial HealthcareLymphocytes (Bld) [#/Vol]1282 10*3/uLNOMS HealthcareLymphocytes/100 WBC (Bld)26.7 %[facility] HospitalH (RBC) [Entitic mass]30.6 pg27.0 - 33.0 pgHannibal Regional HospitalHC (RBC) [Mass/Vol]32.9 g/dL32.0 - 36.0 g/dLNOMD HealthcareComment on above:For adults, a slight decrease in the calculated MCHC value (in the range of 30 to 32 g/dL) is most likely not clinically significant; however, it should be interpreted with caution in correlation with other red cell parameters and the patient's clinical condition. MCV (RBC) [Entitic vol]93.1 fL80.0 - 100.0 fLJORDAN VALLEY [facility] HealthcareMetamyelocytes (Bld) [#/Vol]CANCELED0 cells/uLNOMS HealthcareComment on above:Result [...] the ancillary.Nucleated RBC/100 WBC (Bld) [Ratio]CANCELED0 /100 WBCNOMD Healthcare Comment on above:Result canceled by the [...] NOMS HealthcareIron and Iron binding capacity panelon 94-54-6416Xzni [Mass/Vol] 101 ug/dLNOMD HealthcareIron binding capacity [Mass/Vol]340NOMS HealthcareIron saturation [Mass fraction]30NOMS HealthcareLaboratory - Chemistry and Chemistry - challengeon 80-73-9159Bzsrfae [Mass/Vol]4.8 g/dL3.6 - 5.1 g/dLNOMD Healthcare Albumin/Globulin [Mass ratio]1.8 {ratio}NOMS HealthcareALP [Catalytic [...] (S/P/Bld) [Vol rate/Area]122 mL/min/{1.73_m2}> OR = 60 mL/min/1.15p6TGUT HealthcareGlobulin (S) [Mass/Vol]2.6 g/dLNOMS HealthcareGlucose [Mass/Vol]95 mg/dL65 - 99 mg/dLNOMD HealthcareComment on above: Fasting reference interval Potassium [Moles/Vol]4.2 mmol/L3.5 - 5.3 mmol/LNOMS HealthcareProtein [Mass/Vol] 7.4 g/dL6.1 - 8.1 g/dLNOMS HealthcareSodium [Moles/Vol]139 mmol/L135 - 146 mmol/LNOMS HealthcareUrea nitrogen [Mass/Vol]16 mg/dL7 - 25 mg/dLNOMS Healthcare Urea nitrogen/Creatinine [Mass ratio]SEE NOTE:NOMS HealthcareComment on above: Not Reported: BUN and Creatinine are within reference range. Laboratory - Serology - non-microon 34-69-6502Icfjvontlgvgf Ab Qn153 [IU]/mLHigh < or = 1 IU/mLNOMS HealthcareTPO Ab Qn27 [IU]/mLHighNIBaptist Memorial Hospital Information 49-43-0629Bshxyelciixbeq and review of laboratory resultsAbnormal [facility] Organization Information Site ID: QTW Name: [facility] Address: [address] [place] [id number] Director: Urvashi TaborMayo Clinic Health System[facility] Organization Information Site ID: QPT Name: [facility] Address: [address] [facility], [address] [place] [address] Director: Yonis Beck MD[address] 64-89-7847Dtjr T3 [Mass/Vol] 3.6 pg/mLNormal2.3-4.2Quest DiagnosticsComment on above:Performed By: #### 089, 85370, 866 #### [facility] [place] [address] Monitoring Specialist: Yonis Beck MDT, [facility] 53-59-7429Hgku T4 [Mass/Vol]1.1 ng/dLNormal0.8-1.8Quest DiagnosticsComment on above:Order Comment: FASTING:NO FASTING: NOPerformed By: #### 569, 72616, 866 #### [facility] [place] [address] Monitoring Specialist: Yonis Mari 46-78-8692PUU Qn1.98 m[IU]/LNormalQuest DiagnosticsComment on above:Result Comment: Reference Range > or = 20 Years 0.40-4.50 Ranges First trimester 0.26-2.66 Second trimester 0.55-2.73 Third trimester 0.43-2.91Performed By: #### 739, 64672, 866 #### [facility] [place] [address] Monitoring Specialist: Yonis WOLF ( test) IA.rapid Ql (U)Ordered By: Marcelle Espinosa on 14-93-8282PWQ ( test) Ql (U)NegativeWayne HospitalHCG,Urineon 50-14-1232Jxae HCG ( test) Ql (U) NegativeNoBetsy Johnson Regional Hospital Physician GroupComment on above:Result Comment: PERFORMED BY: [place] [address] PATHOLOGIST CIVIL CADD TECHNICIAN RAYMOND SUERO M.D.Performed By: #### [facility] #### [place] [address] USALon 91-40-5010YUrzoakdr: [id number] Received: 09/03/23 Status: FRANKLYN Gonzales Num: [id number] Spec Type: Surgical Subm Dr: Marcelle Espinosa [...] Location Account Attending Physician Aleta Castro / [id number] Marcelle Espinosa DO SPEC NUM: [id number] RECD: 09/03/23 STATUS: FRANKLYN GONZALES NUM: [id number] MIRIAM: 09/02/23- SUBM DR: Marcelle Espinosa DO ENTERED: 09/03/23 [facility] [...] mild squamous acanthosis and occasionally associated Specimen: [id number] Received: 09/03/23 Status: FRANKLYN Bradshawcharley Num: [id number] Spec Type: Surgical Subm Dr: Marcelle Espinosa, Tissues: A Small Intestine - Biopsy/Polyp (SMALL BOWEL BX) B GASTRIC FOR HP (GASTRIC HP) C Esophagus Biopsy (DISTAL ESOPHAGUS) D Esophagus Biopsy (PROXIMAL ESOPHAGUS) E Colon Biopsy (RANDOM RT COLON) F Colon Biopsy (RANDOM LT COLON) Procedures: HE/12, Gross/Micro L4/6, H PYLORI, IHC First AB Patient: Aleta Castro N [id number] (Continued) Specimen: [id number] Received: 09/03/23 (Continued) Pathological Diagnosis (Continued) Signed (signature on file) Heather Villegas MD 09/05/23 1417 Specimen: [id number] Received: 09/03/23 Status: FRANKLYN Gonzales Num: [id number] Spec Type: Surgical Subm Dr: Marcelle Espionsa DO Tissues: A Small Intestine - Biopsy/Polyp (SMALL BOWEL BX) B GASTRIC FOR HP (GASTRIC HP) C Esophagus Biopsy (DISTAL ESOPHAGUS) D Esophagus Biopsy (PROXIMAL ESOPHAGUS) E Colon Biopsy (RANDOM RT COLON) F Colon Biopsy (RANDOM LT COLON) Procedures: HE/12, Gross/Micro L4/6, H PYLORI, IHC First AB Patient: Aleta Castro N [id number] (Continued) Specimen: [id number] Received: 09/03/23 (Continued) Pathological Diagnosis (Continued) lymphocytic [...] entirely submitted (more content not included)...[facility] Physician GroupInsurance Correspondence Officeon 01-91-4584Fmtwzturx Correspondence [id number]#1.00TIFFNoMiddletown HospitalIntraOperative Documentson 47-66-4213SrpjhDjarveqfq [id number]#1.00TIFSumma Health Barberton CampusPostoperative Documentson 98-32-6746Kipyxqevfxkov Documents [id number]#1.00TIFSumma Health Barberton CampusMain OR Intraoperative Recordon 28-11-9257Zqzq OR Intraoperative Record IntraOp Document Type FT Summary Primary Physician: Myron Marroquin DO Finalized Date/Time: 04/25/23 09:04:33 Pt. Name: ALETA CASTRO/Sex: 2000 Female Med Rec #: [id number] Physician: Myron Marroquin DO Financial #: [id number] Pt. Type: A Room/Bed: [facility]/ Admit/Disch: 04/23/23 06:25:15 - 04/23/23 14:50:00 [...] assist with the block. Patient's heartrate 89, kj20-007% on room air. patient tolerated block well. 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 Last Modified By: Souleymane RN, Lyle Comer RN, Lyle Comer RNLyle 04/23/23 10:59:32 04/23/23 10:59:32 04/23/23 10:59:32 Entry 4 Entry 5 Entry 6 Case Attendee Regulo Rodgers Laura C Wilhelm CST, Benjamin Role Performed Staff - Other Scrub - Primary SUPERVISOR REFRACTORY PRODUCTS/SA Time In 04/23/23 08:50:00 04/23/23 08:50:00 04/23/23 [...] FT Pre-Care Text: Implements (more content not included)...[facility] Consent for Anesthesiaon 56-39-9551Ilkbkbm for Anesthesia [id number]#1.00TIFSumma Health Barberton CampusDischarge Instructionson 15-42-4244Moomkmxhx Instructions [id number]#1.[address] HospitalIntraOperative Documentson 29-37-2147BjrafEdzgxqvws Documents [id number]#1.00[address] HospitalOperative Reporton 25-80-8390Gfijbjnew ReportSURGERY DATE: 04/23/2023 DIGITAL PROJECT MANAGER: Garry Camacho CST PREOPERATIVE DIAGNOSIS: Left knee anterior cruciate ligament tear POSTOPERATIVE DIAGNOSIS: Left knee anterior cruciate ligament tear OPERATION: Left knee diagnostic operative arthroscopy with autograft fvte-uvhgjb-yihp anterior cruciate ligament reconstruction with InternalBrace augmentation ANESTHESIA: General as well as regional block ANESTHESIOLOGIST: KARTHIKEYAN Peacock ESTIMATED BLOOD LOSS: 10 mL INTRAVENOUS FLUIDS: Please see the operative record SPECIMEN: None COMPLICATIONS: None IMPLANTS: Arthrex izhv-ppkbno-lgmk Tightrope system with the button for the [...] The anterior cruciate ligament was reconstructed using hnvh-gaffzj-jrtb from patellar tendon autograft with this InternalBrace [...] by over reaming with a 10 mm field cane scaler helper. Excess bone debris is again removed. [...] tensioned on the femo (more content not included)...[facility] HospitalComment on above:Result Comment: Electronically Signed By: Myron Marroquin DO\.ammy\Date and Time Signed: 04/24/23 07:15 ESTPreoperative Documentson 86-47-1961Upzqyowuxmls Documents [id number]#1.00TIFFNormalProtestant Deaconess HospitalConsent for Procedure/Surgeryon 96-49-2258Qvipbky for Procedure/Surgery [id number]#1.[address] HospitalConsent for Treatmenton 05-86-7722Adnthed for Treatment [id number]#1.00[address] HospitalDischarge Instructionson 51-25-4347Ewlbsbzts Instructions ALETA CASTRO :2000 Visit Date:04/23/2023 Inpatient [...] scheduled. Call for any problems. Where: [address] [place] [address] Striiv (1) Medications What How Much When Instructions Next Dose New acetaminophen-oxycodone (Percocet 5 mg-325 mg oral tablet) 1 Tablets By Mouth As Directed 1-2 po Q4-6h prn pain Dx: S83.512D Duration: 7 days Pickup at [facility]/pharmacy #2345 New aspirin (Ecotrin 325 mg Tab-EC) 1 Tablets By Mouth Every day Pickup at [facility]/pharmacy #2345 Pharmacy Information [facility]/pharmacy #2345: [address], [place] [phone] Allergies Banana (Throat tightness, Hives, Vomiting) Latex (Hives, Swelling) azithromycin (Hives) midodrine (Numbness) Education Materials [place], [place] [facility] DISCHARGE INSTRUCTIONS: ANTERIOR CRUCIATE [...] any concerns. Myron Marroquin, DO [facility] [address] [place] [address] Reviewed: 06-23 Revised: 03/29 Common Emergency [...] please share your experie (more content not included)...[facility] HospitalComment on above:Result Comment: Electronically Signed By: Marcelo MCQUEEN, Shyla Acevedo\.br\Date and Time Signed: 04/23/23 10:58 ESTH&P Updateon 04-23-2023H&P [id number]#1.00TIFF [facility] HospitalMain OR PACU I Recordon 32-79-8591Jzml OR PACU I RecordPACU Phase I Document Type FT Summary Primary Physician: Myron Marroquin DO Finalized Date/Time: 04/23/23 12:22:33 Pt. Name: ALETA CASTRO/Sex: 2000 Female Med Rec #: [id number] Physician: Myron Marroquin DO Financial #: [id number] Pt. Type: A Room/Bed: [place] [address] Admit/Disch: 04/23/23 06:25:15 - Institution: Case Times [...] Signatures Signed By: Valencia Jimenez RN 04/23/23 12:22[facility] HospitalMain OR Preoperative Recordon 78-56-7968Fuxd OR Preoperative RecordPreOp Document Type FT Summary Primary Physician: Myron Marroquin DO Finalized Date/Time: 04/23/23 08:50:41 Pt. Name: ALETA CASTRO/Sex: 2000 Female Med Rec #: [id number] Physician: Myron Marroquin DO Financial #: [id number] Pt. Type: A Room/Bed: [facility]/ Admit/Disch: 04/23/23 06:25:15 - Institution: Case [...] Signatures Signed By: Lyle Comer RN 04/23/23 08:50NoChillicothe HospitalMonitor Record on 31-40-4735Otlqbqy [id number]#1.00TIFF [facility] HospitalOperative Reporton 10-20-7264Ocmcdavao Report Patient: ALETA CASTRO Age: 22 years [...] Using maximal sterile barrier technique per current [facility] guidelines including hand hygeine, Guidance (Ultrasound [...] The patient tolerated the procedure as expected.Normal [facility] HospitalComment on above:Result Comment: Electronically Signed By: [facility] (), Cyrus Zepeda.br\Date and Time Signed: 04/23/23 07:56 ESTPatient Education - Texton 37-59-4175Riiymad Education - Text [place], [place] [facility] DISCHARGE INSTRUCTIONS: ANTERIOR CRUCIATE [...] any concerns. Myron Marroquin DO [facility] [address] [place] [address] Reviewed: 06-23 Revised: 03/29[facility] HospitalProcass medical center Note-Physicianon 89-05-3858Rbqmfhlh Note-PhysicianPatient: ALETA CASTRO Age: 22 years Sex: [...] Daily, # 21 tab(s), Refills(s) 0, Pharmacy: [facility]/pharmacy #2345, 165, cm, 04/04/23 6:11:00 EST, Height/Length Dosing, 78, kg, 04/04/23 6:11:00 EST, Weight Dosing Percocet 5 mg-325 mg oral tablet: 1 tab(s), Oral, As Directed, 40 tab(s), Refill(s) 0, 1-2 po Q4-6hprn pain Dx: S83.512D Duration: 7 days, [facility]/pharmacy #2345, 165, cm, 04/04/23 6:11:00 EST, Height/Length Dosing, 78, kg, 04/04/23 6:11:00 EST, Weight Dosing, Home Medications (2) Active Ecotrin 325 mg Tab-EC 325 mg = 1 tab(s), Oral, Daily Percocet 5 mg-325 mg oral tablet 1 tab(s), Oral, As Directed Problem list: All Problems H/O: hypothyroidism / SNOMED CT 826802940 / Confirmed POTS (postural orthostatic tachycardia syndrome) / SNOMED CT 9595142464 / Confirmed Physical Examination Vital Signs 04/23/2023 [...] Blood Pressure 1 (more content not included)... [facility] HospitalComment on above:Result Comment: Electronically Signed By: [facility] Cyrus LEACH\.br\Date and Time Signed: 04/23/23 11:06 ESTProgress Note-PhysicianPatient: ALETA CASTRO Age: 22 years Sex: Female : 2000 Associated Diagnoses: None Author: Myron Marroquin DO Postoperative Information Procedure: L knee scope, ACL recon Preoperative Diagnosis: L ACL tear. Postoperative Diagnosis: same. Performed by: daniel. Brim Stiffener: Roby Camacho. Specimens Removed: none. Prosthesis: Arthrex. . Estimated Blood Loss: 10 ml. Complications: None. Anesthesia type: General, block.[facility] HospitalComment on above:Result Comment: Electronically Signed By: [...] Daily, # 21 tab(s), Refills(s) 0, Pharmacy: [facility]/pharmacy #2345, 165, cm, 04/04/23 6:11:00 EST, Height/Length Dosing, 78, kg, 04/04/23 6:11:00 EST, Weight Dosing Percocet 5 mg-325 mg oral tablet: 1 tab(s), Oral, As Directed, 40 tab(s), Refill(s) 0, 1-2 po Q4-6hprn pain Dx: S83.512D Duration: 7 days, [facility]/pharmacy #2345, 165, cm, 04/04/23 6:11:00 EST, [...] All Problems H/O: hypothyroidism / SNOMED CT 056783847 / Confirmed POTS (postural orthostatic tachycardia syndrome) / SNOMED CT 9348463655 / Confirmed, Active Problems (2) H/O: hypothyroidism POTS (postural orthostatic tachycardia syndrome) Histories Past Medical History: No active or resolved past medical history items have been selected or recorded. Family History: No family history items have been selected or recorded. Procedure history: Laparoscopic left ovarian R/o (7566402345). Ovarian cyst removal ([id number]). Social History Social & Psychosocial Habits Alcohol [...] U beta hCG Ql Negative . Plan [place] [employer] Anesthesiologists (ASA) physical status classification: Class II. Anesthetic Preoperative Plan: Anesthesia General. Regional Adductor Canal Block Left.[facility] HospitalComment on above:Result Comment: Electronically Signed By: Urbano MENDEZ)Cyrus\.br\Date and Time Signed: 04/23/23 07:41 ESTU BetaHcg Qualon 99-78-8458YLI.beta subunit (U) [Moles/Vol]NegativeNoChillicothe HospitalComment on above:Performed By: #### [id number] ####[facility] [address] [place], [place] [address]Ozabdwd for Procedure/Surgery on 25-13-2703Ogtbbmv for Procedure/Surgery [id number]#1.00TIFFMemorial Hospital w/ Auto Diffon 76-76-2371Mdizsqtp Absolute0.0 E9/LNormal0.0-0.2FAdena Fayette Medical CenterComment on above:Performed By: #### [id number] ####[facility] [address] [place], [place] [address]Bostbhvst/100 WBC (Bld)0.4 %Normal0.0-2.0[facility]acon[facility] HospitalComment on above:Performed By: #### [id number] ####[facility] [address] [place], [place] [address]Kfo Absolute0.1 E9/LNormal0.0-0.5FAdena Fayette Medical CenterComment on above:Performed By: #### [id number] ####[facility] [address] [address]Thjcwygaymy/100 WBC (Bld)1.0 %Normal0.0-8.0[facility]acon[facility] HospitalComment on above:Performed By: #### [id number] ####[facility] [address] [address]Nekkvmhcary distribution width (RBC) [Ratio]12.6 %Dyvztr29.9-14.2FAdena Fayette Medical Center Comment on above:Performed By: #### [id number] ####[address] [address]Rinucrlctn (Bld) [Volume fraction] 39.0 %Dvqigt03.0-46.0[facility]acon[facility] HospitalComment on above:Performed By: #### [id number] ####[address] [address]Idyqmxyfxg (Bld) [Mass/Vol]13.1 g/wCIubioz68.0-16.0[facility] HospitalComment on above:Performed By: #### [id number] ####[address] [address]Dkmkg Absolute1.4 E9/LNormal 1.0-4.0[facility] HospitalComment on above:Performed By: #### [id number] ####[address] [address] Lymphocytes/100 WBC (Bld)22.2 %Hsvcns57.0-50.0[facility] HospitalComment on above:Performed By: #### [id number] ####[facility] [address] [address]PLG (RBC) [Entitic mass]30.6 pgNormal 27.0-34.0[facility] HospitalComment on above:Performed By: #### [id number] ####[facility] [address] [address]EHNB (RBC) [Mass/Vol]33.7 g/lOJkyzhp72.4-36.0[facility] HospitalComment on above:Performed By: #### [id number] ####[facility] [address] [address]FTB (RBC) [Entitic vol]91.0 iTMhseqo61.0-100.0 [facility] HospitalComment on above:Performed By: #### [id number] ####[facility] [address] [address]Xpos Absolute0.4 E9/LNormal0.2-1.0[facility] HospitalComment on above: Performed By: #### [id number] ####[address] [address]Iabdtkrfz/100 WBC (Bld)5.6 %Normal4.0-14.0[facility] HospitalComment on above:Performed By: #### [id number] ####[address] [address]Kmtkdx Absolute4.6 E9/LNormal2.0-7.5FAdena Fayette Medical CenterComment on above:Performed By: #### [id number] ####[address] [address]Viessw Auto70.8 %Ywwhde01.0-75.0[facility]acon[facility] HospitalComment on above:Performed By: #### [id number] ####[address] [address]Kobvpqob072.0 E9/YXnsmmz057.0-500.0[facility] HospitalComment on above:Performed By: #### [id number] ####[address] [address]Kblqukhb mean volume (Bld) [Entitic vol]7.7 fLNormal6.4-10.8[facility] HospitalComment on above:Performed By: #### [id number] ####[facility] [address], [place] [address]HUB6.3 E12/LNormal4.3-5.9[facility]acon[facility] HospitalComment on above:Performed By: #### [id number] ####[facility] [address] [place], [place] [address]MDV0.5 E9/LNormal4.0-11.0 [facility] HospitalComment on above:Performed By: #### [id number] ####[facility] [address] [place] [address] Consent for Treatmenton 06-85-0890Vvdhqxx for Treatment [id number]#1.00TIFFNormalProtestant Deaconess HospitalHEMATOLOGYOrdered By: SYSTEM SYSTEM on 51-14-4161Rysrwxke Absolute0.0 E9/L Normal0.0 - 0.2 E9/LRemisol HemeBasophils/100 WBC (Bld)0.4 %Normal0.0 - 2.0 % Remisol HemeEos Absolute0.1 E9/LNormal0.0 - 0.5 E9/LRemisol HemeEosinophils/100 WBC (Bld)1.0 %Normal0.0 - 8.0 %Remisol HemeErythrocyte distribution width (RBC) [Ratio]12.6 %Eizojg14.9 - 14.2 %Remisol HemeHematocrit (Bld) [Volume fraction] 39.0 %Pfybpm66.0 - 46.0 %Remisol HemeHemoglobin (Bld) [Mass/Vol]13.1 g/dLNormal 12.0 - 16.0 gm/dLRemisol HemeLymph Absolute1.4 E9/LNormal1.0 - 4.0 E9/LRemisol HemeLymphocytes/100 WBC (Bld)22.2 %Miqlvo97.0 - 50.0 %Remisol HemeMCH (RBC) [Entitic mass]30.6 toKsrmhd56.0 - 34.0 pgRemisol HemeMCHC (RBC) [Mass/Vol]33.7 g/xUNmobxl44.4 - 36.0 gm/dLRemisol HemeMCV (RBC) [Entitic vol]91.0 fKGrquen40.0 - 100.0 fLRemisol HemeMono Absolute0.4 E9/LNormal0.2 - 1.0 E9/LRemisol Heme Monocytes/100 WBC (Bld)5.6 %Normal4.0 - 14.0 %Remisol HemeNeutro Absolute4.6 E9/LNormal2.0 - 7.5 E9/LRemisol HemeNeutro Auto70.8 %Ckeqrs92.0 - 75.0 %Remisol XlqqXrazzcyz765.0 E9/NUszkqp257.0 - 500.0 E9/LRemisol HemePlatelet mean volume (Bld) [Entitic vol]7.7 fLNormal6.4 - 10.8 fLRemisol HemeRBC4.3 E12/LNormal4.3 - 5.9 E12/LRemisol HemeWBC6.5 E9/LNormal4.0 - 11.0 E9/LRemisol HemeCOVID/FLU/RSV RT-PCRon 01-18-5126FSVO-CoV-2 (COVID-19) RNA QUEENIE+probe Ql (Unsp spec)Negative [facility] [employer] Other COVID/FLU/RSV RT-PCRNegativeHartland [employer] Other quick Strepon 04-01-2023S. pyogenes Org specific cx Ql (Throat)NegativeHartland [employer] Other quick OmniLyticsEnevate [employer] Other US Gallbladderon 44-53-7219LO GallbladderClinical History: Right upper quadrant pain. Diarrhea. [...] and signed by Cornelius Hernandez on 07/23/2022 1043NormalNortsoutheastern arizona behavioral health servicesn The University of Toledo Medical CenterOG PANEL 2: to 29on 05-09-2022..NormalThe [facility] on above:Performed By: #### [id number] #### [facility] [address] [place] [address] Dr. Yovanny Kelly Gdln ACOG Vabhrpq34-00VjblfiOqfBarnesville Hospital on above:Performed By: #### [id number] #### [facility] [address] [address] [address] Yovanny VillegasDIAGNOSIS:CommentBrown Memorial Hospital on above: Result Comment: NEGATIVE FOR INTRAEPITHELIAL LESION OR MALIGNANCY.Performed By: #### [id number] #### [facility] [address] [place] [address] Dr. Yovanny VillegasMethodology:CommentBrown Memorial Hospital on above: Result Comment: This liquid based ThinPrep(R) pap test was screened with the use of an image guided system.Performed By: #### [id number] #### [facility] [address] [place] [address] Dr. Yovanny VillegasNote:CommentBrown Memorial Hospital on above:Result Comment: The Pap smear is a screening test designed to aid in the detection of premalignant and malignant conditions of the uterine cervix. It is not a diagnostic procedure and should not be used as the sole means of detecting cervical cancer. Both false-positive and false-negative reports do occur. .Performed By: #### [id number] #### [facility] [address] [address] [address] Yovanny VillegasPerformed by:CommentBrown Memorial Hospital on above: Result Comment: Deedee Navarrete, Administrative Program Specialist (ASCP)Performed By: #### [id number] #### [facility] [address] [place] [address] Dr. Yovanny VillegasReflex Criteria:CommentNormalThe Alba HospitalComment on above:Result Comment: The HPV DNA reflex criteria were not met with this specimen result therefore, no HPV testing was performed. .Performed By: #### [id number] #### [facility] [address] [place] [address] Dr. Yovanny Anthony adequacy:CommentNoCrystal Clinic Orthopedic CenterComment on above:Result Comment: Satisfactory for evaluation. Endocervical and/or squamous metaplastic cells (endocervical component) are present.Performed By: #### [id number] #### [facility] [address] [place] [address] Dr. Yovanny VillegasCHLAMYDIA/GONOCOCCUS QUEENIE (SWAB/URINE/PAPon 07-99-5647Ccdtmixgh trachomatis, NAANegativeNormalNegativeCleveland Clinic South Pointe HospitalComment on above: Performed By: #### CT/NGNA #### [facility] [address] [place] [address] Dr. Yovanny VillegasNeisseria gonorrhoeae, NAANegativeNormalNegativeCleveland Clinic South Pointe HospitalComment on above:Performed By: #### CT/NGNA #### [facility] [address] [place] [address] Dr. Yovanny VillegasVAGINITIS/VAGINOSIS DNA PROBEon 29-61-4659Hiewxpi speciesNegative NormalNegativeCleveland Clinic South Pointe HospitalComment on above:Performed By: #### VAGINT #### [facility] [address] [place] [address] Dr. Yovanny VillegasGardnerella vaginalisNegativeNormalNegativeCleveland Clinic South Pointe Hospital Comment on above:Performed By: #### VAGINT #### [facility] [address] [place] [address] Dr. Yovanny VillegasTrichomonas vaginalisNegativermalNegativeCleveland Clinic South Pointe Hospital Comment on above:Performed By: #### VAGINT #### [facility] [address] [place] [address] Dr. Yovanny VillegasXR KNEE LEFT (3 VIEWS)on 35-96-4631NU KNEE LEFT (3 VIEWS) EXAMINATION: THREE XRAY [...] Signed by: Deshaun Aguilar MD 05/24/21 Final resultNormalRiverview Health InstituteNo fracture or dislocation. [facility] CONSOLIDATEDEXAMINATION: THREE XRAY VIEWS OF THE LEFT KNEE 05/24/2021 8:48 pm COMPARISON: None. HISTORY: ORDERING SYSTEM PROVIDED HISTORY: pain eval occult bony injury TECHNOLOGIST PROVIDED HISTORY: pain eval occult bony injury FINDINGS: No fracture, dislocation, or focal osseous lesion is noted. No significant soft tissue abnormality seen. [facility] Deshaun Bejarano MD - 05/24/2021 EXAMINATION: THREE XRAY VIEWS OF THE LEFT KNEE 05/24/2021 8:48 pm COMPARISON: None. HISTORY: ORDERING SYSTEM PROVIDED HISTORY: pain eval occult bony injury TECHNOLOGIST PROVIDED HISTORY: pain eval occult bony injury FINDINGS: No fracture, dislocation, or focal osseous lesion is noted. No significant soft tissue abnormality seen. IMPRESSION: No fracture or dislocation. [employer] Phone: radiology Study observation (narrative)[employer] Phone: XR KNEE LEFT (3 VIEWS)Ordered By: Deshaun Aguilar on 24-36-3383[facility] Work Phone: COVID Quick Testingon 75-18-9536FtytxhYftiknnsQobrt [employer] Other Quick Strepon 05-01-2021. pyogenes Org specific cx Ql (Throat)PositiveHartland [employer] Other Quick StrepNomissouri baptist hospital-sullivan [employer] Other COVID Quick Testingon 84-09-5270HoyolwNvoapngpFsizf [employer] Other Qussy Fluon 07-77-2815ACXXN Ab CF (S) [Titer]Negative [place] [employer] Other FLUBV Ab CF (S) [Titer]NegativeNoLifecare Behavioral Health Hospital 1[employer]618 Technology Other XR SACRUM COCCYX (MIN 2 VIEWS)on 52-07-0998AV SACRUM COCCYX (MIN 2 VIEWS)EXAMINATION: THREE XRAY VIEWS OF THE SACRUM/COCCYX 12/14/2020 3:10 am COMPARISON: None. HISTORY: ORDERING SYSTEM PROVIDED HISTORY: fall at work - hit nmeey7pc TECHNOLOGIST PROVIDED HISTORY: fall at work - hit aunjw8ck FINDINGS: The sacroiliac joints are normally aligned. The visualized portions the pelvis are. There is no fracture of the sacrum or coccyx evident. IMPRESSION: No acute osseous abnormality of the sacrum or coccyx evident. Interpreted by: Loc Oswald MD Signed by: Loc Oswald MD 12/14/20 Final resultNormalMerMiddlesex HospitalXR SACRUM COCCYX (MIN 2 VIEWS)Ordered By: David Dominguez on 50-93-1483Pv acute osseous abnormality of the sacrum or coccyx evident.[employer] Work Phone: eXAMINATION: THREE XRAY VIEWS OF THE SACRUM/COCCYX 12/14/2020 3:10 am COMPARISON: None. HISTORY: ORDERING SYSTEM PROVIDED HISTORY: fall at work - hit gbdmm1sl TECHNOLOGIST PROVIDED HISTORY: fall at work - hit jdbgs3re FINDINGS: The sacroiliac joints are normally aligned. The visualized portions the pelvis are. There is no fracture of the sacrum or coccyx evident. [employer] Work Phone: e, [facility]b Incoming Radiant Results From [employer] - 12/14/2020 3:24 AM EDT EXAMINATION: THREE XRAY VIEWS OF THE SACRUM/COCCYX 12/14/2020 3:10 am COMPARISON: None. HISTORY: ORDERING SYSTEM PROVIDED HISTORY: fall at work - hit psjmj3im TECHNOLOGIST PROVIDED HISTORY: fall at work - hit upnjk5kt FINDINGS: The sacroiliac joints are normally aligned. The visualized portions the pelvis are. There is no fracture of the sacrum or coccyx evident. IMPRESSION: No acute osseous abnormality of the sacrum or coccyx evident. [employer] Work Phone: [facility] HospitalTarari Work Phone: ct HEAD WO CONTRASTon 83-22-9118SC HEAD WO CONTRAST EXAMINATION: CT OF THE [...] Signed by: Maira Cruz MD 09/19/20 Final resultNormalOur Lady of Mercy Hospital Head WO ContrastOrdered By: Luis Carlos Fragoso on 54-39-9392Plbdebvwovgm noncontrast CT examination of the brain.[employer] Phone: eXAMINATION: CT OF THE HEAD WITHOUT [...] abnormality of the visualized skull or soft tissues.[employer] Phone: edi, [facility]b Incoming Radiant Results From [employer] - 09/19/2020 4:42 PM EDT EXAMINATION: CT [...] Unremarkable noncontrast CT examination of the brain. [employer] Phone: [facility] HospitalKlangoo Phone: coding Summaryon 81-30-5399Cxvyaf SummaryCODING DATE: 10/27/2019 [facility] STATUS: Home PAYOR: [facility] ADMIT DX: REASON FOR VISIT DX: [...] By: Ashley Pablo Date Saved: 10/27/2019 03:10 [facility]2019 Novel Coronavirus (CoVID-19), QUEENIE LCon 07-57-3031ELJO-CoV-2, QUEENIE (COVID-19) LCNot DetectedNot [facility] CenterComment on above:Order Comment: [id number] Comment: This test was developed and its performance characteristics determined by [employer]. This test has not been FDA cleared [...] in this assay. Performed At: [facility] [address] [facility], [place] [id number] Ruba Washburn MD Ph:[phone] By: #### [id number] #### [facility] (DEFAULT) [address] [place] [address]Ehdawuu Formson 59-07-2818Pdzisoj Forms [id number]#1.00OTGTMagruder Hospital on 37-40-2594BMDQMmfkow TextToll Free: [phone] [facility] - [address] [place] [address]Xfgog: [phone]: [facility] Xixts[address] [place], [place] [address]Tojmx: [phone]: [facility] [place], [place] [address]Jnucn: [phone]: Steve Pablo M.D., Ronaldo Marquez M.D.David Becerril M.D.Papito Sood D.O..Myriam Chaudhari M.D.Deandre Montoya M.D. Matthew Huff M.D.Date: July 15, 2017Re: Aleta Elliott WHOM IT MAY CONCERN:She was seen in our office today.Sincerely,Katelin Cardona PSR(signed electronically to expedite mailing)[facility] HospitalCNOVSPon 04-20-2571NLGBMDIrebp (SP) Office ([place]) --------ALETA GARAY ([id number]) 89 FDate Time Provider Department07/15/17 3:15 PM [...] nourishedNeuro: Gait normal.Collected: 05/15/17 104 3Resulting lab: [facility] MAIN LABORATORYValue: (NOTE)Comment: Performing Pathologist: Jo-Ann Sesay [...] list. no changes .Referring Provider: DAVID BECERRIL [[id number]]Allergies As of Date: 07/15/2017(No Known Allergies)Date Reviewed: [...] Status:Closed by DAVID BECERRIL MD on 07/17/17[facility] [id number] ID: [id number]: David Escaleraervice: (none)Author Type: PhysicianType: Progress NotesFiled: [...] well nourishedNeuro: Gait normal.Collected: 05/15/17 1043Resulting lab: [facility] MAIN LABORATORYValue: (NOTE)Comment: Performing Pathologist: Jo-Ann Sesay [...] issues certainly could consider further testingAlfred Kavon BaroneBlanchard Valley Health SystemPlatelet Func Scrnon 08-34-8250FFQ/ADP Xjzxxebze83 CT (sec) Normal<118[facility] on above:Result Comment: Results are reported as Closure Time (CT) in seconds.Performed By: #### PLTSCP ####[place] [address] Av[address], [place] [phone]/EPI Eoiabqsvv725 CT (sec)Normal<199CleK[facility]tering Health [facility] on above:Result Comment: Results are reported as Closure Time (CT) in seconds. Performed By: #### PLTSCP ####[facility] Tbakflfrpmiu[address] Call[address] AveCEphraim, [place] [phone] Func Scr Interp(NOTE)NormalUniversity Hospitals Lake West [facility] Center on above:Result Comment: Performing Pathologist: Jo-Ann Sesay [...] a bleeding disorder. Performed By: #### PLTSCP ####[address] [employer] AGAllison, [place] [phone] CBCDIF (for [facility] use only)on 59-34-4572Xll Baso<0.03Normal<0.11CBlanchard Valley [facility] on above: Performed By: #### EVANDF ####[place] [address] AveCEphra[address], [place] [phone] Mono0.53 k/uLNormal<0.87[facility] on above:Performed By: #### EVANDF ####[place] [address] [address]CE[address], [place] [phone] Neut2.59 k/uL Normal1.45-7.50[facility] on above:Performed By: #### EVANDF ####[address], [place] [phone]/100 WBC Auto (Bld)0.4 %NormalUniversity Hospitals Lake West Medical Center on above:Performed By: #### EVANDF ####[address] Av[address], [place] [phone] DiffNormal [facility] on above:Performed By: #### EVANDF ####[address] [phone] 10*3/uLNormal<0.46[facility] on above:Performed By: #### EVANDF ####[place] [address] [address], [place] [phone]/100 leukocytes1.5 %Normal [facility] on above:Performed By: #### EVANDF ####[address] Av[address], [place] [phone] distribution width Auto Ratio (RBC)12.2 %Gayyfx79.5-15.0 [facility] on above:Performed By: #### RACHEL ####[address] Av[address], [place] [phone] (RBC)4.15 10*6/uLNormal3.90-5.20[facility] Comment on above:Performed By: #### RCBCDF ####[address] Av[address], [place] [phone] (RBC)0.0 /[address] [facility] Hospitalment on above:Performed By: #### RCBCDF ####[address] Av[address], [place] [phone] (RBC)10*6/uLNormal<0.01[facility] on above:Performed By: #### RCBCDF ####[address] [phone] (HCT)39.4 %Qrwals20.0-46.0 [facility] AndersonComment on above:Performed By: #### RCBCDF ####[address] [phone] [phone] mass conc (Bld)12.8 g/dXRzzwhx66.5-15.5CBlanchard [facility] on above:Performed By: #### RCBCDF ####[address] [phone] 10*3/uLNormal1.00-4.00[facility] on above:Performed By: #### RCBCDF ####[address] [phone]/100 .9 %NormalUniversity Hospitals Lake West Medical Center on above:Performed By: #### RCBCDF ####[address] [phone] pGNormal 26.0-34.0[facility] on above:Performed By: #### CHONBCDF ####[place] [phone] mass conc (RBC)32.5 g/fHDwiivd60.5-36.0[facility] Comment on above:Performed By: #### EVANDF ####[place] [phone] bFWqxmjh57.0-100.0[facility] on above:Performed By: #### EVANDF ####[place] [phone]/100 wkneaudazi69.6 %NormalUniversity Hospitals Lake West Medical Center on above:Performed By: #### EVANDF ####[place] [phone]/100 WBC Auto (Bld)56.6 %NormalUniversity Hospitals Lake West Medical Center on above:Performed By: #### CHONBCDF ####[place] [phone] mean volume (PMV)10.2 fLNormal9.0-12.7CBlanchard Valley [facility] on above:Performed By: #### CHONBCDF ####[place] [phone] 10*3/dDSqqazm774-044FfqwqxgggOur [facility] Comment on above:Performed By: #### EVANDF ####[place] [phone] (Leukocytes)4.58 10*3/uLNormal 3.70-11.00[facility] on above:Performed By: #### EVANDF ####[address] [place], [place] [phone] 34-43-9022TJBLOipwfx TextToll Free: [phone] [facility] Llzxycpv[address] Bret [place]Santa [place], [place] [address]Sukhb: [phone]: [facility] [address] [place], [place] [address]Hilox: [phone]: [facility] Lkxujwl[address] [place], [place] [address]Yjqoq: [phone]: Steve Pablo M.D., Jonna Castro M.D.Papito Sood D.O..Carin Hoover M.D. FACROSaju A. Rajan, M.D.Date: April 29, 2017Re: Aleta RuizvipulSKYLER WHOM IT MAY CONCERN:She was seen in our office today.Sincerely,Karly Pizarro Psr(signed electronically to expedite mailing)[facility] HospitalCNOVSPon [id number] (SP) Office ([place]) --------BEVVIPULSUMMER ([id number]) 89 FDate Time Provider Department04/29/17 2:30 PM [...] patientand her mother at length. Would check GHQ585 at this time, further testingbased on results.1. [...] (HCC) [D69.1]Order(s):PLATELET FUNCTION SCREEN [SQPLTSCP] Order #: [id number] FUTURE CBC + DIFF (FOR REMOTE [facility] USE) [SQRCBCDF] Order #: [id number] FUTUREDisposition: Return in about 6 weeks (around [...] Status:Closed by DAVID BECERRIL MD on 04/29/17Normal [facility] AndersonPROGRESSon 96-65-3899EFELZAJCOKR ID: [id number]: David Escaleraervice: (none)Author Type: PhysicianType: Progress NotesFiled: [...] and her mother at length. Would check WUT591 at this time, furthertesting based on results.1. 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, choice of management likely to be influenced by history ofPOTSAlfred Chery Barone [facility] Vital Signs Date TimeVital SignValuePerforming YrbhntdlrKiwzxrlq06-29-7978 14:02-0500Body mass index (BMI) [Ratio]30 kg/m2Pretty ARELLANO Work Phone: [facility] HealthcareJhhvtikson35-28-1331 14:02-0500Body qylkcy07.29 kgPretty ARELLANO Work Phone: [facility] HealthcareSxqpaeepnm01-94-2538 14:02-0500Diastolic blood adecqxzo46 mm[Hg]Pretty ARELLANO Work Phone: [facility] HealthcareYdezvspkur76-88-6543 14:02-0500Systolic blood coyynubc76 mm[Hg]Pretty ARELLANO Work Phone: [phone] [place], [place] [address]Clscuksvqu76-71-2658 13:04-0400Body mass index (BMI) [Ratio]29.59 kg/d5Gnbai William DO Work Phone: [phone])537-[address] [place], [place] [address]Ufflbbqzii46-28-7738 13:04-0400Body jezjnj01.2 kg Doc William DO Work Phone: 1(825)[facility] [place], [place] [address]Mdgxqicqdi56-54-2576 13:04-0400Diastolic blood prdonobn29 mm[Hg]Doc William DO Work Phone: 1(444)[facility] [place], [place] [address]Vupjthunwg95-29-4330 13:04-0400Systolic blood hibmuulk888 mm[Hg]Doc William DO Work Phone: 1(527)[facility] [place], [place] [address]Xuxtizbjxt36-36-6185 13:57-0400Body mass index (BMI) [Ratio]29.42 kg/j8ZncmzdduLnua Steen CLAIM ANALYST Work Phone: 1([phone])[address] [place], [place] 6843710-08-2025 13:57-0400Body fwrrky73.75 kgLuna Steen CLAIM ANALYST Work Phone: 1(016)[facility] [place], [place] [address]Ivggjmkahs77-21-1927 13:57-0400Diastolic blood lbcihjed30 mm[Hg]Luna Steen CLAIM ANALYST Work Phone: 1(578)[facility] [place], [place] [address]Odtmnhsipv43-74-3773 13:57-0400Systolic blood mkjnldog363 mm[Hg]Luna Steen CLAIM ANALYST Work Phone: 1(433)[address] [place], [place] 6843709-24-2025 14:07-0400Body mass index (BMI) [Ratio]28.84 kg/h2Rhtjz William DO Work Phone: 1(859)[facility] [place], [place] [address]Eeazoljsbd76-11-5348 14:07-0400Body eoknfy43.2 kg Doc William DO Work Phone: 1(212)[facility] [place], [place] [address]Thzrarnoey91-62-1057 14:07-0400Diastolic blood axblxkzj53 mm[Hg]Doc William DO Work Phone: 1(097)[facility] [place], [place] [address]Aywcwwfami43-63-4692 14:07-0400Systolic blood mm[Hg]Doc William DO Work Phone: [phone])447-[address] [place], [place] [address]Gkoolkgkdl61-47-4386 14:04-0400Body mass index (BMI) [Ratio]29.95 kg/s6Gwzgwlpe Enio CLAIM ANALYST Work Phone: 1(096)495-[facility] HealthcareVjwruehiau71-64-7001 14:04-0400Body llzaac70.15 kgLuna Enio CLAIM ANALYST Work Phone: 1(534)526-[address] [place], [place] [address]Nbdgnbghpv34-97-0289 14:04-0400Diastolic blood sbjebzfh35 mm[Hg]Luna Enio CLAIM ANALYST Work Phone: 1(251)744-[address] [place], [place] [address]Nuhkljvrrb94-25-6183 14:04-0400Systolic blood mvvdunxg713 mm[Hg]Luna Enio CLAIM ANALYST Work Phone: 1(819)661-[address] [place], [place] [address]Bwksbpodxj35-44-7337 14:39-0400Body mass index (BMI) [Ratio]28.49 kg/m2Pretty Chaidez PA Work Phone: 1(055)525-[address] [place], [place] [address]Svtopqfxhb17-31-7868 14:39-0400Body totxlt29.3 kg Pretty Chaidez PA Work Phone: 1(788)312-[address] [place], [place] [address]Ildqxvssmg66-54-3565 14:39-0400Diastolic blood awqvavbw55 mm[Hg]Pretty Chaidez PA Work Phone: 1(166)415-[address] [place], [place] [address]Hsnbfeswet51-57-4595 14:39-0400Systolic blood uwfxazvr340 mm[Hg]Pretty Chaidez PA Work Phone: 1(556)671-[address] [place], [place] [address]Seppqqdykx04-28-1803 15:34-0400Body mass index (BMI) [Ratio]28.29 kg/z8Vvcuy William DO Work Phone: [phone])723-[address] [place], [place] [address]Bfdekvpbht15-95-4322 15:34-0400Body mkxapw15.75 kgCorey William DO Work Phone: 1(506)230-[facility] HealthcareDgiymbitsm33-42-4712 15:34-0400Diastolic blood cwwoeirz22 mm[Hg]Doc William DO Work Phone: 1(610)483-[address] [place] [address]-16-2025 15:34-0400Systolic blood njvrfupx111 mm[Hg]Doc William DO Work Phone: [facility] HealthcareTwmjibgtaa01-91-7727 14:27-0400Body mass index (BMI) [Ratio]30.21 kg/s9Tbasz William DO Work Phone: [facility] HealthcareTzaterbbgu34-07-3914 14:27-0400Body emldjd89.83 kgCorey William DO Work Phone: [phone])922-[address] [place], [place] [address]Lllqqpshll75-21-3474 14:27-0400Diastolic blood zjcadxhc25 mm[Hg]Doc William DO Work Phone: [facility] HealthcareCufbzsglgm61-35-6372 14:27-0400Systolic blood ersrhlet441 mm[Hg]Doc William DO Work Phone: [facility] HealthcareWmwcvzpqpc43-79-4510 15:41-0500Body .6 cmDavid Pocos DO Work Phone: [facility] HealthcareQwbhivqotc94-10-5890 15:41-0500Body mass index (BMI) [Ratio]30.21 kg/h5Jmsln Pocos DO Work Phone: [facility] HealthcareIzdowrqudy44-80-4077 15:41-0500Body ktrfte75.83 kgDavid Pocos DO Work Phone: [facility] HealthcareHayrkovfbb39-17-0709 15:26-0500Body aqipvk308.6 cmEtyshawn Payne MD Work Phone: [facility] HealthcareApttlhisrn47-31-5128 15:26-0500Body mass index (BMI) [Ratio]30.21 kg/x4TcrvaeRosalie Payne MD Work Phone: [facility] HealthcareJkvwjscufh41-79-3559 15:26-0500Body .83 kgRosalie Payne MD Work Phone: [facility] HealthcareKljnlzkygk26-26-2504 15:26-0500Heart rate88 /min Rosalie Payne MD Work Phone: [facility] HealthcareSdlxqlstog72-17-1355 15:26-7114SaY0% (BldA) [Mass fraction]98 %Rosalie Payne MD Work Phone: [facility] HealthcareEllbofhgiu08-61-6376 08:00-0400Body vvgdfa777.6 cmKelvin Schwartz DO Work Phone: [facility] HealthcareXmsfjaezrz03-60-9790 08:00-0400Body mass index (BMI) [Ratio]30.9 kg/u6CoilvKelvin Schwartz DO Work Phone: [facility] HealthcareRgfxydmifb26-78-2120 08:00-0400Body oiolbd22.65 kgKelvin Schwartz DO Work Phone: [facility] HealthcareZhuuowzikp93-35-2324 14:25-0400Diastolic blood jrfspzip80 mm[Hg]MD Rosalie Payne Work Phone: [phone]06-17-2024 14:25-0400 Heart rate80 /minMD Rosalie Payne Work Phone: 1(650)[address] [place], [place] 7835206-17-2024 14:25-0400 Respiratory rate18 /minMD Rosalie Payne Work Phone: 1(358)[address] [place], [place] 7835206-17-2024 14:25-0400 SaO2% (BldA) [Mass fraction]100 %MD Rosalie Payne Work Phone: 1(283)[address] [place], [place] 7835206-17-2024 14:25-0400 Systolic blood mm[Hg]MD Rosalie Payne Work Phone: 1(983)[facility] [place], [place] 6474206-17-2024 11:31-0400 Body .1 cmMD Rosalie Payne Work Phone: 1(221)[address] [place], [place] 7835206-17-2024 11:31-0400 Body qxvxruqtker66.4 [degF]MD Rosalie Payne Work Phone: 1(659)[address] [place], [place] 7835206-17-2024 11:31-0400 Body .11 kg Rosalie Payne Work Phone: 1(717)[address] [place], [place] 7835205-09-2024 14:21-0400 [facility] .[facility] 14:21-0400Body mass index (BMI) [Ratio]28.3 kg/e2IkzyzdzwwWayne Hospital05-09-2024 14:0400Body oonrwl61.11 kgWay[facility]05-09-2024 14:-0400Diastolic blood pyhokhdf98 mm[Hg][facility] 07-25-2023 14:21-0400Heart rate81 /minWay[facility] 07-25-2023 14:-0400Systolic blood zdekdhdq384 mm[Hg][facility]01-17-2024 14:55-0500Diastolic blood hvjqdpoa08 mm[Hg]Myron Marroquin [address]01-17-2024 14:55-0500Heart mzxx357 /minDavid Daniel [address]01-17-2024 14:55-0500Mean blood fqptyssz849 mm[Hg]Myron Marroquin [address]01-17-2024 14:55-0500 Systolic blood crgeqlju880 mm[Hg]Myron Marroquin [address]01-17-2024 14:53-0500Heart rate98 /minDavid Vaniaos [address] [place], [place] 7560401-17-2024 14:53-2877CbZ4% (BldA) [Mass fraction]99 %Myron Marroquin [address] [place], [place] 7560401-17-2024 14:53-0500 Diastolic blood gwrcbepp50 mm[Hg]Myron Marroquin [address]01-17-2024 14:53-0500Mean blood ntebuidg690 mm[Hg]Myron Marroquin [address]01-17-2024 14:53-0500 Systolic blood rnymsdns280 mm[Hg]Myron Pocos [facility]01-17-2024 14:52-0500 Respiratory rate16 /minDavid Pocos [facility]01-15-2024 10:45-0500Body pyfsfv378.1 cmAmanda Kristine Other [employer] Other 01-15-2024 10:45-0500Body mass index (BMI) [Ratio] 28.29 kg/n2Pddtkx Kristine Other [employer] Other 01-15-2024 10:45-0500Body slziwffsbvf99.1 [degF]Destinee Kristine Other [employer] Other 01-15-2024 10:45-0500Body yexmeb49.11 kgAmanda Kristine Other [facility] [employer] Other 01-15-2024 10:45-0500Respiratory rate18 /minAmanda Kristine Other [employer] Other 01-15-2024 10:45-4068TqM5% (BldA) [Mass fraction]99 % Destinee Kristine Other [employer] Other 06-06-2022 11:25-0400Body .1 cmPamela Martha Other [employer] Other 06-06-2022 11:25-0400Body mass index (BMI) [Ratio] 27.12 kg/s9Oujrvd Martha Other [employer] Other 06-06-2022 11:25-0400Body eysptvpncbq88.6 [degF]Carlie Thomas Other [facility] [employer] Other 06-06-2022 11:25-0400Body mxufks14.94 kgCarlie Thomas Other [facility] [employer] Other 06-06-2022 11:25-0400Respiratory rate18 /minCarlie Thomas Other [facility] [employer] Other 06-06-2022 11:25-1166VsV3% (BldA) [Mass fraction]97 % Carlie Thomas Other [facility] [employer] Other 03-09-2022 20:36-0500Body lrbsetezomz77.7 [degF]Artis Yoder DO Work Phone: [facility] HospitalTarariCesoom66-70-2620 20:36-0500Diastolic blood kkcfanhl68 mm[Hg]Artis Yoder DO Work Phone: [facility] HospitalTarariUoxzwp83-90-3177 20:36-0500Heart xrhi314 /min Artis Yoder DO Work Phone: [facility] HospitalTarariEtfqad51-20-6182 20:36-0500Respiratory rate16 /minArtis Yoder DO Work Phone: [facility] HospitalTarariZnhujb34-12-0756 20:36-3266DpV9% (BldA) [Mass fraction]97 %Artis Herithad DO Work Phone: [facility] HospitalTarariLogbfk47-18-3414 20:36-0500Systolic blood osxbvuye234 mm[Hg]Artis Yoder DO Work Phone: [facility] HospitalTarariUmjmlv84-99-1858 13:10-0500Body cpjzdo109.1 cm Adriana Evangelista Other [facility] [employer] Other 02-24-2022 13:10-0500Body mass index (BMI) [Ratio] 27.12 kg/x1Hulvqmyzx Jean Carlos Other [employer] Other 02-24-2022 13:10-0500Body fwnwyzrnmnn51.8 [degF] Adriana Garciaault Other [employer] Other 02-24-2022 13:10-0500Body eeazup09.94 kgStjen Evangelista Other [employer] Other 02-24-2022 13:10-0500Diastolic blood zjydwsqw91 mm[Hg] Adriana Garciaault Other [employer] Other 02-24-2022 13:10-0500Respiratory rate18 /minSfeliz Garciaault Other [employer] Other 02-24-2022 13:10-2716VoH1% (BldA) [Mass fraction]99 % Adriana Garciaault Other [employer] Other 02-24-2022 13:10-0500Systolic blood wuhstgwv698 mm[Hg] Adriana Jean Carlos Other [employer] Other 02-14-2022 11:40-0500Body uhfeya929.1 cmPamelsridhar Thomas Other [employer] Other 02-14-2022 11:40-0500Body mass index (BMI) [Ratio] 26.62 kg/p0Jnvoob Amrtha Other [employer] Other 02-14-2022 11:40-0500Body dfrtbfntefq48.6 [degF]Carlie Thomas Other [employer] Other 02-14-2022 11:40-0500Body arabdw66.58 kgCarlie Thomas Other [employer] Other 02-14-2022 11:40-0500Respiratory rate18 /minCarlie Thomas Other [employer] Other 02-14-2022 11:40-9629OcD5% (BldA) [Mass fraction]99 % Carlie Thomas Other [employer] Other 01-21-2022 12:00-0500Body mkchop131.1 cmCreyes Ashley Other [employer] Other 01-21-2022 12:00-0500Body mass index (BMI) [Ratio] 26.62 kg/z0OgriyhSandeep Ramirez Other [employer] Other 01-21-2022 12:00-0500Body dypxscuoyet43.6 [degF]Sandeep Ramirez Other [employer] Other 01-21-2022 12:00-0500Body emhmby09.58 kgSandeep Ramirez Other [employer] Other 01-21-2022 12:00-3299StE3% (BldA) [Mass fraction]98 % Sandeep Ramirez Other [employer] Other 09-28-2021 23:25-0400Diastolic blood kmgcjbil92 mm[Hg] David Dominguez MD Work Phone: [facility] Work Phone: 1(801) 298-854809-28-2021 23:25-0400Systolic blood mm[Hg] David Dominguez MD Work Phone: [phone] Work Phone: 1(733) 598-146009-28-2021 23:23-0400Body .1 Mira Dominguez MD Work Phone: [facility] Work Phone: 1(462)987-429339-65962173-79-8673 23:23-0400Body mass index (BMI) [Ratio] 26.63 kg/n5VqmxchjDavid Dominguez MD Work Phone: [phone] Work Phone: 1(641) 297-216409-28-2021 23:23-0400Body qlhhxpmiich90.29 [degF] David Dominguez MD Work Phone: [facility] Work Phone: 1(692) 435-871709-28-2021 23:23-0400Body .58 kgDavid Dominguez MD Work Phone: [facility] Work Phone: 1(370) 137-295509-28-2021 23:23-0400Heart rate79 /Sharon Dominguez MD Work Phone: [phone] Work Phone: 1(906) 650-320409-28-2021 23:23-0400Respiratory rate14 /Sharon Dominguez MD Work Phone: [facility] Work Phone: 1(496) 557-483809-28-2021 23:23-2198JwF0% (BldA) [Mass fraction]99 % David Dominguez MD Work Phone: [facility] Work Phone: 1(482) 835-791007-05-2021 15:56-0400Body gvibglglwws76.6 [degF][facility] Work Phone: 1(799) 614-140307-05-2021 15:56-0400Diastolic blood mm[Hg] [employer] Work Phone: 1(248) 780-233207-05-2021 15:56-0400Heart gwhx122 /minAdmetric Work Phone: 1(723) 903-549507-05-2021 15:56-0400Respiratory rate16 /minAdmetric Work Phone: 1(700) 437-426607-05-2021 15:56-7117MvN9% (BldA) [Mass fraction]100 % [employer] Work Phone: 1(805) 116-702907-05-2021 15:56-0400Systolic blood wwnixbtg962 mm[Hg] [employer] Work Phone: Encounters Encounter DateEncounter TypeCare ProviderFacilityStart: 01-23-2025 End: 78-53-5069Upnlasjos Result EncounterCorey William DO Work Phone: noms External Department UnsolicitedStart: 01-23-2025 End: 52-24-4829Zgczctgam Result EncounterCorey William DO Work Phone: noms External Department UnsolicitedStart: 01-20-2025 End: 27-35-1339Nrybmt Herson ARELLANO Work Phone: n[facility] [place] OBGYNStart: 01-20-2025 End: 92-23-8373Ggipxb Herson ARELLANO Work Phone: NOTK [facility] OBGYNStart: 01-20-2025 End: 03-04-5295Cowvwdqjl Result EncounterCorey William DO Work Phone: noms External Department UnsolicitedStart: 01-20-2025 End: 09-69-2825Vgjjdvfo flow Arsenio ARELLANO Work Phone: NOOS [place] OBGYNComment on above:Third trimester ([facility]); 35 weeks gestation of ([facility])Start: 01-20-2025 End: 53-50-4541ljuoubsquzWEB RAMEYNot AvailableStart: 01-11-2025 End: 57-56-9386Qbckxbysk Result EncounterCorey William DO Work Phone: NOMS External Department UnsolicitedStart: 01-11-2025 End: 06-46-5140Cmokvlwad Result EncounterCorey William DO Work Phone: NOLB External Department UnsolicitedStart: 01-05-2025 End: 25-58-0119Dannwd flowsheetCorey William DO Work Phone: NOMS [facility]BGYNStart: 01-05-2025 End: 53-17-1930Xpymbb flowsheetCorey William DO Work Phone: NOMS [place] OBGYNStart: 01-05-2025 End: 16-07-6514Jddynelw flow sheetCorey William DO Work Phone: NOM[facility] [place] OBGYNComment on above:Third trimester ([facility]); 33 weeks gestation of ([facility]Start: 01-05-2025 End: 82-04-4821hcthpcpeklNAWCO FAZIONot AvailableStart: 01-02-2025 End: 67-69-5759Qvtmzethd Result EncounterGeneric External Data ProviderNOMS External Department UnsolicitedStart: 01-02-2025 End: 00-99-3532Abwxwspds Result EncounterGeneric External Data ProviderNOMS External Department UnsolicitedStart: 12-26-2024 End: 14-24-1847Ezwfpisod Result EncounterGeneric External Data ProviderNOMS External Department UnsolicitedStart: 12-26-2024 End: 85-79-9253Hvqjohglg Result EncounterGeneric External Data ProviderNOMS External Department UnsolicitedStart: 12-23-2024 End: 11-26-1748Zjmrvq Cody Steen NP Work Phone: [facility]YNStart: 12-23-2024 End: 20-27-8747Hjnoaq Cody Steen NP Work Phone: [facility]BGYNStart: 12-23-2024 End: 77-25-3019Iqrymmgm flow sheetLuna Steen CLAIM ANALYST Work Phone: [facility]BGYNComment on above:Third trimester ([facility] 31 weeks gestation of ([facility])Start: 12-23-2024 End: 11-77-8550pcjttjquokKGDJGELE EBERLYNot AvailableStart: 12-09-2024 End: 33-87-5730Eownzs flowsheetCorey William DO Work Phone: [facility]YNStart: 12-09-2024 End: 54-66-9060Rtlrsa flowsheetCorey William DO Work Phone: [facility]YNStart: 12-09-2024 End: 58-10-6757Igeoqgfo flow sheetCorey William DO Work Phone: [facility]BGYNComment on above:Third trimester ([facility]); 29 weeks gestation of ([facility]); Yeast infectionStart: 12-09-2024 End: 61-03-4928wwdfbyckgbTJXZD FAZIONot AvailableStart: 11-27-2024 End: 45-62-5423aivhhkhdyoTWLIDMercy [facility]2024 End: 64-92-8532Adwwgk Cody Steen CLAIM ANALYST Work Phone: [facility]Start: 11-25-2024 End: 18-49-4814Pljpiq flowsRuss Steen CLAIM ANALYST Work Phone: [facility]YNStart: 11-25-2024 End: 36-54-9854Ejhhasaq flow sheetLuna Steen CLAIM ANALYST Work Phone: [facility] OBGYNComment on above:Second trimester ([facility]); 27 weeks gestation of ([facility]); Evan's diseaseStart: 11-25-2024 End: 68-98-8373mahdjzbrakTBMREXGU EBERLYNot AvailableStart: 11-24-2024 End: 66-30-3445Sorvszfqa Result EncounterGeneric External Data ProviderNOMS External Department UnsolicitedStart: 11-24-2024 End: 88-70-7999Nqauscwxj Result EncounterGeneric External Data ProviderNOMS External Department UnsolicitedStart: 11-12-2024 End: 09-81-7558Kyiumtumn Result EncounterGeneric External Data ProviderNOMS External Department UnsolicitedStart: 11-12-2024 End: 94-68-4402Vjpymcmis Result EncounterGeneric External Data ProviderNOMS External Department UnsolicitedStart: 11-03-2024 End: 70-31-1166Bvbxkrvdt Result EncounterGeneric External Data ProviderNOMS External Department UnsolicitedStart: 11-03-2024 End: 53-54-5542Rebofiuus Result EncounterGeneric External Data ProviderNOMS External Department UnsolicitedStart: 10-28-2024 End: 81-30-7348Rjcpdjq encounter procedurePretty ARELLANO Work Phone: [facility] HealthcareStart: 10-28-2024 End: 07-16-8170Tattwham flow Arsenio ARELLANO Work Phone: [facility] OBGYNComment on above:Second trimester ([facility] 23 weeks gestation of ([facility]); Diabetes mellitus screening; STD exposure; Well woman exam with routine gynecological exam; Heart palpitationsStart: 10-28-2024 End: 15-20-7926aexnlqipzbGVZ RAMEYNot AvailableStart: 10-28-2024 End: 52-86-3560Hecfgz Herson ARELLANO Work Phone: [facility] OBGYNStart: 10-28-2024 End: 32-58-1747Qineag Herson ARELLANO Work Phone: [facility]BGYNStart: 10-28-2024 End: 06-15-7149Jvesxncaz Result EncounterGeneric External Data ProviderNOMS External Department UnsolicitedStart: 10-28-2024 End: 04-79-8370Ijtqlera Result EncounterKrselene Enio CLAIM ANALYST Work Phone: noms External Department UnsolicitedStart: 10-06-2024 End: 44-76-5942Mfocbtdoh Result EncounterCorey William DO Work Phone: noms External Department UnsolicitedStart: 10-06-2024 End: 7926Qsuupgqca Result EncounterCorey William DO Work Phone: NOPZ External Department UnsolicitedStart: 09-30-2024 End: 95-93-2222Ayouzqjb flow sheetCorey William DO Work Phone: noms BCP OBComment on above:19 weeks gestation of ([facility]); Second trimester ([facility])Start: 09-30-2024 End: 69-55-3702wczfhfwnleFFYMW FAZIONot AvailableStart: 09-28-2024 End: 84-76-5964Zwzhqenlc Result EncounterGeneric External Data ProviderNOMS External Department UnsolicitedStart: 09-28-2024 End: 72-25-9299Waxypilol Result EncounterGeneric External Data ProviderNOMS External Department UnsolicitedStart: 09-02-2024 End: 48-11-5784Zqikdfst flow Arsenio ARELLANO Work Phone: noms BCP OBComment on above:Second trimester ([facility]); 15 weeks gestation of ([facility]); Screening, , for anatomic survey ([facility])Start: 09-02-2024 End: 14-29-4291cxcrwcqydtDPM RAMEYNot AvailableStart: 09-02-2024 End: 08-85-9629Wfjxfz Herson ARELLANO Work Phone: [facility] BCP OBStart: 09-02-2024 End: 15-79-6621Hryhwq Herson ARELLANO Work Phone: [facility] BCP OBStart: 08-31-2024 End: 74-83-4950Txchjwmhz Result EncounterCorey William DO Work Phone: noms External Department UnsolicitedStart: 08-31-2024 End: 67-90-8360Mprryeoju Result EncounterCorey William DO Work Phone: noms External Department UnsolicitedStart: 08-05-2024 End: 52-26-6622Ywrzmj flowsheetCorey William DO Work Phone: noms BCP OBStart: 08-05-2024 End: 51-06-9001Fzfjpx flowsheetCorey William DO Work Phone: noms BCP OBStart: 08-05-2024 End: 73-46-9511Bcizroyd flow sheetCorey William DO Work Phone: noms BCP OBComment on above:First trimester ; 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 ; 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)Start: 08-05-2024 End: 00-60-6993xdejvblmyjDDOZP FAZIONot AvailableStart: 07-18-2024 End: 70-83-5888Umzqbsphh Result EncounterGeneric External Data ProviderNOMS External Department UnsolicitedStart: 07-18-2024 End: 95-94-9889Uldfelilk Result EncounterGeneric External Data ProviderNOMS External Department UnsolicitedStart: 07-16-2024 End: 56-99-3335Buoybf outpatient visit 5 minutesNoms Bcp Ob William NurseNOMS BCP OBComment on above:GA: 8j1sBummy: 07-16-2024 End: 25-01-8071tsnxudwiqwWBJSD FAZIONot AvailableStart: 02-26-2024 End: 03-35-4680Xyzxagb encounter procedureDavid A Pocos DO Work Phone: noms NB ORTHOComment on above:S/P reconstruction of ACL of left knee using bone-patellar tendon-bone autograft (Primary Dx)Start: 02-26-2024 End: 12-12-3280pxipemaxodDXOVZ A POCOSNot AvailableStart: 02-19-2024 End: 76-67-6213Ytaegx outpatient visit 25 minutesEdjay Payne MD Work Phone: [facility] CI FM 100Comment on above:Subclinical hypothyroidism (CMS/HCC) (Primary Dx); 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CMS/HCC); Cigarette smoker; Non morbid obesity due to excess calories; Postural orthostatic tachycardia syndrome (POTS); Abnormal bleeding in menstrual cycleStart: 02-19-2024 End: 46-43-3787tdcjgnwbjnLJACIECristal Parisi AvailableStart: 02-19-2024 End: 81-34-8218Urrrtl Rodriguez Payne MD Work Phone: [facility] CI FM 100Start: 02-19-2024 End: 42-45-9657Isyqrb Rodriguez Payne MD Work Phone: [facility] CI FM 100Start: 12-27-2023 End: 69-21-8654kkqpbldpdeRyas J Spriggs PT Work Phone: NOMS FB PTComment on above:Acute pain of left knee (Primary Dx); Status post arthroscopic reconstruction of anterior cruciate ligament of left knee using quadricepstendon autograftStart: 12-27-2023 End: 72-43-3941Qndshh Za Nagy PT Work Phone: NOMS FB PTStart: 12-27-2023 End: 91-79-0370Pxekci Za Nagy PT Work Phone: NOXR FB PTStart: 12-24-2023 End: 66-49-4829nnrdntunngEllbxqkp Wright [employer] Work Phone: NOMS FB PTComment on above:Acute pain of left knee (Primary Dx); Status post arthroscopic reconstruction of anterior cruciate ligament of left knee using quadricepstendon autograftStart: 12-24-2023 End: 27-97-6151Lzysko CanarakearaBuzzoekmaribel Vieira [employer] Work Phone: NOMS FB PTStart: 12-24-2023 End: 05-64-0471Etmvnw CanarakearaBuzzoekmaribel Vieira [employer] Work Phone: NOZZ FB PTStart: 12-17-2023 End: 13-76-9350tggdbjqayqZvse Pari Lilo PT Work Phone: NOMS FB PTComment on above:Acute pain of left knee (Primary Dx); Status post arthroscopic reconstruction of anterior cruciate ligament of left knee using quadricepstendon autograftStart: 12-17-2023 End: 51-35-3565Fuqpjc flowsheetKystuart Yañez Lilo PT Work Phone: NOMS FB PTStart: 12-17-2023 End: 40-71-5534Wumivo Za Yañez Lilo PT Work Phone: NOPA FB PTStart: 12-09-2023 End: 73-75-3843Ekfjxi Isabel Schwartz DO Work Phone: [facility] SWS ORTHOAOStart: 12-09-2023 End: 98-79-9965Aldzdq Isabel Schwartz DO Work Phone: [phone] SWS ORTHOAOStart: 12-09-2023 End: 97-77-2330Asbvjus encounter Hans Schwartz DO Work Phone: [facility] SWS ORTHOAOComment on above:Left knee injury, initial encounter (Primary Dx)Start: 12-03-2023 End: 97-01-2714tusfvuzdvfNfwrjxpp Vieira [employer] Work Phone: NOMS FB PTComment on above:Acute pain of left knee (Primary Dx); Status post arthroscopic reconstruction of anterior cruciate ligament of left knee using quadricepstendon autograftStart: 12-03-2023 End: 71-15-4391Twatij Nikita Vieira [employer] Work Phone: NOMS FB PTStart: 12-03-2023 End: 38-25-9997Imgnto Nikita Vieira [employer] Work Phone: NOMS FB PTStart: 11-19-2023 End: 77-28-2215rvnxphqiluCkyxdk Tattersall PTANOMS FB PTComment on above:Acute pain of left knee (Primary Dx); Status post arthroscopic reconstruction of anterior cruciate ligament of left knee using quadricepstendon autograftStart: 11-19-2023 End: 14-75-9145Sqolot flowsheetJennifer Tattersall PTANOMS FB PTStart: 11-19-2023 End: 22-17-6795Gfqorj flowsheetMariah Tattersall PTANOMS FB PTStart: 11-12-2023 End: 00-81-5469uaxqrdvqytRimcazwi Wright [employer] Work Phone: noms FB PTComment on above:Acute pain of left knee (Primary Dx); Status post arthroscopic reconstruction of anterior cruciate ligament of left knee using quadricepstendon autograftStart: 11-12-2023 End: 35-26-5309Yapgpk Nikita Vieira [employer] Work Phone: noms FB PTStart: 11-12-2023 End: 35-41-0031Flmkrx CanarakearaSkritterbrian Vieira [employer] Work Phone: noMS FB PTStart: 70-55-5123Vxm-patient / Non-visitMD Rosalie Payne Work Phone: [facility] Work Phone: Start: 09-02-2023 End: 13-82-7778Kgmhrlmgp to same day surgery centerMD Rosalie Payne Work Phone: [facility] Work Phone: Start: 09-02-2023 End: 41-12-5533tgivlwdijbBZ Rosalie Payne Work Phone: [facility] Work Phone: Start: 07-25-2023 End: 03-20-2336psxbpbwjexNaepwulxuBlanchard [facility] Work Phone: Start: 07-25-2023 End: 71-88-0016Hsbziza encounter procedureSophie Physician Group[facility] Work Phone: Start: 04-23-2023 End: 21-15-2447vycfojvyylDzsze A PocosFacility:FTMCStart: 12-55-1839Iysmr Jennifer Nagy PT Work Phone: noms FB PTStart: 04-03-2023 End: 18-02-0959zulqmrbrehSbygw A PocosFacility:FTMCStart: 04-03-2023 End: 24-54-0450Mdqviwf encounter procedureDavid A Pocos [facility] Start: 04-01-2023 End: 04-63-3166uarwqobeodIickik Kristine Other [employer] Other Start: 37-79-0868Nloffv outpatient visit 15 minutes Destinee GrobFPG Urgent Care ClydeStart: 05-01-2022 End: 82-80-2546nlhjgvztdtEP DOC WILLIAM .Facility:X0Nryhw: 08-21-2021 End: 49-76-8437ymphvfzhjcTetmiv Dymond Other [employer] Other Start: 30-53-1079Sxwwtv outpatient visit 15 minutes Carlie ThomasFPG Urgent Care ClydeStart: 07-26-2021 End: 43-27-7276iswssykrypZW DOC WILLIAM .Facility:P6Jgtkp: 11-71-7328Kbclrvryh department patient visitARTIS YODERCincinnati Shriners Hospitaltart: 05-24-2021 End: 54-95-1415Xbznzcuda department patient visitArtis Yoder DO Work Phone: [facility] EDComment on above:Contusion of left knee, initial encounter (Primary Dx)Start: 05-11-2021 End: 05-53-7395hnxfslyoolIzhlqfznz Breault Other [facility] [employer] Other Start: 99-31-1725Dvjjky outpatient visit 15 minutes Adriana EvangelistaFPG Urgent Care ClydeStart: 05-01-2021(URG) Urgent Care Visit Carlie ThomasFPG Urgent Care ClydeStart: 05-01-2021 End: 93-27-2266ftajfbdcumEltgay Dymond Other [employer] Other Start: 04-07-2021 End: 28-41-5557qwbebhnbrxBxnnqg Ashley Other [facility] [employer] Other Start: 64-82-3060Kkmpmw outpatient visit 15 minutes Sandeep RamirezFPG Urgent Care ClydeStart: 12-14-2020 End: 32-33-0667Nhrrinsew department patient visitCIPRIAN RANDBucyrus Community Hospitaltart: 12-14-2020 End: 53-41-2640Ufsmhstpd department patient visitCiprian Frankie MURRIETA Work Phone: [facility] EDComment on above:Tailbone injury, initial encounter (Primary Dx)Start: 09-19-2020 End: 65-24-6113Nxcttqfjg department patient visitRiverview Health Institute EDComment on above:Closed head injury, initial encounter (Primary Dx)Start: 07-15-2017 End: 75-80-9533VcrqxsqmvbJFBWWT P VARGASCMarietta [facility]: 05-15-2017 End: 15-78-1516QmonqrujrxDZMNHF P VARGASCkeenan private hospitaland [facility]: 04-30-2017 End: 43-14-6438LntfnuqhxeBTPGOX P VARGASCkeenan private hospitaland [facility]: 04-29-2017 End: 33-28-6839SjtuphmktmWOVRTZ P VARGASCMarietta [facility]opathic Clinic: 03-13-2017 End: 40-36-3160BsdmxprvmeCSQJL MCKENZIE PABLOFacility:[facility] Procedures DateProcedureProcedure DetailPerforming ClinicianStart: 89-44-5103IT OB BPP W NON-STRESSCorey William DO Work Phone: Start: 61-83-7847WQA THYROID STIM HORMONECorey William DO Work Phone: Start: 68-46-4284YJ OB BPP W NON-STRESSCorey William DO Work Phone: Start: 20-20-5830Tvrxn dip stick/tablet rgnt non-auto w/o micrscpAmy Dm ARELLANO Work Phone: Start: 25-73-8001IG OB BPP W NON-STRESSCorey William DO Work Phone: Start: 24-89-6412Fxhin dip stick/tablet rgnt non-auto w/o micrscpCorey William DO Work Phone: Start: 31-37-6559GW OB BPP W NON-STRESSGeneric External Data ProviderStart: 62-70-1755BV OB GROWTHGeneric External Data ProviderStart: 32-96-1577KF OB BPP W NON-STRESSGeneric External Data ProviderStart: 01-82-5804TRI THYROID STIM HORMONECorey William DO Work Phone: Start: 91-19-3621Zzcxd dip stick/tablet rgnt non-auto w/o micrscpKristina Enio CLAIM ANALYST Work Phone: Start: 70-77-6012Ciabr dip stick/tablet rgnt non-auto w/o micrscpCorey William DO Work Phone: Start: 08-20-1277Kipou dip stick/tablet rgnt non-auto w/o micrscpKristina Enio CLAIM ANALYST Work Phone: Start: 55-43-2797NE ECHO DOPPLER COMPLETEGeneric External Data ProviderStart: 55-22-2550TCP 12-LEADGeneric External Data Provider Start: 41-18-0013IHX CBC WITH AUTO DIFFKristina Enio CLAIM ANALYST Work Phone: Start: 98-75-0529GTRZCCHWW VAGINITIS (HTRX)Luna Enio CLAIM ANALYST Work Phone: Start: 53-13-5790Svfkj dip stick/tablet rgnt non-auto w/o micrscpLuna Conraderly CLAIM ANALYST Work Phone: Start: 62-07-9627PZE,APTIMA HPV,AGE GDLNAmy Dm PA Work Phone: Start: 35-51-8776TE OB CERVICAL LENGTHCorey William DO Work Phone: Start: 35-10-2451Jhskl dip stick/tablet rgnt non-auto w/o micrscpCorey William DO Work Phone: Start: 59-11-4954RFL THYROID STIM HORMONECorey William DO Work Phone: Start: 40-87-3255Ajjyl dip stick/tablet rgnt non-auto w/o micrscpAmy Dm ARELLANO Work Phone: Start: 28-50-7849BVH THYROID STIM HORMONEGeneric External Data ProviderStart: 95-23-0461Jadeb dip stick/tablet rgnt non-auto w/o micrscpCorey William DO Work Phone: Start: 11-12-2306OYB TESTCorey William DO Work Phone: Start: 84-29-0788CFB DRUG SCREEN RAPID (URINE)Generic External Data ProviderStart: 27-81-3249Wgbda dip stick/tablet rgnt non-auto w/o micrscpCorey William DO Work Phone: Start: 76-95-2605Qxxkhkoq blood count with white cell differential, automatedRosalie Payne MD Work Phone: Start: 91-57-6380Aspkmkbkhuvgd metabolic panelRosalie Payne MD Work Phone: Start: 10-48-7605Xrvkymqucjfcb antibodyEdjay Payne MD Work Phone: Start: 21-57-0120LznhnepovgmbsgurkvqrmeorfpIA Rosalie Payne Work Phone: Start: 25-99-8006Vibxnqh of reconstruction of anterior cruciate ligament tearStatus post arthroscopic reconstruction of anterior cruciate ligament of left knee using quadricepstendon autograftGretchen Vieira [employer] Work Phone: Start: 94-54-9549Eeiqgvizlg examination knee 3 views Artis Yoder DO Work Phone: Start: 38-35-5163Zexkr sacrum & coccyx minimum 2 views David Dominguez MD Work Phone: Start: 88-44-6882Dl head/brain w/o contrast material Luis Carlos Fragoso [...] of left knee using quadricepstendon autograftGretchen Vieira [employer] Work Phone: History of reconstruction of anterior cruciate ligament tearStatus post arthroscopic reconstruction of anterior cruciate ligament of left knee using quadricepstendon autograftKyle J Lilo PT Work Phone: History of reconstruction of anterior cruciate ligament tearStatus post arthroscopic reconstruction of anterior cruciate ligament of left knee using quadricepstendon autograftGretchen Vieira [employer] Work Phone: History of reconstruction of anterior cruciate ligament tearStatus post arthroscopic reconstruction of anterior cruciate ligament of left knee using quadricepstendon autograftGretchen Vieira [employer] Work Phone: History of reconstruction of anterior cruciate ligament tearStatus post arthroscopic reconstruction of anterior cruciate ligament of left knee using quadricepstendon autograftMariah Tattersall [employer] Laparoscopic excision of cyst of left ovaryDavid Pocos Plan of Treatment DateCare ActivityDetailAuthorStart: 43-11-3473Inhyprmvy vaccinationInfluenza Vaccine (#1)NOMS HealthcareComment on above:Postponed from 11/16/2024 (Patient Refused)Start: 01-27-2025 End: 98-09-3295Azcvfgq encounter qaphnayja14/12/2025 1:40 PM EST Routine [facility] [address] [address] [facility] [id number] Doc Thomas DO [address] [place] [address] [facility]YNStart: 01-20-2025 End: 22-95-2710Fkdtuer encounter procedureNOMS Giltner OBGYNComment on above: ArrivedStart: 01-05-2025 End: 23-79-7542Ruaalvz encounter procedureNOMS Giltner OBGYNComment on above: ArrivedStart: 12-23-2024 End: 30-81-4465Vmwrvku encounter procedureNOMS Giltner OBGYNComment on above: ArrivedStart: 12-23-2024 End: 42-82-0293Ouyvxrykszmq / ancillary services welojcsmgg77/08/2025 1:30 PM EDT Ancillary Procedure [facility] [address] [facility] [id number] [facility]BGYNStart: 12-09-2024 End: 81-74-5624Qjzyisf encounter procedureNOMS Alba OBGYNComment on above: ArrivedStart: 11-25-2024 End: 91-66-4606BJ biophysical profile w non stress testUS biophysical profile w non stress test Imaging Routine 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), Expires: 05/25/2025[facility] Work Phone: comment on above:Expected: 11/25/2024 (Approximate), Expires: 05/25/2025Start: 11-25-2024 End: 40-04-6676UB for pregnancyUS OB follow up transabdominal approach Imaging Routine Evan's disease Expected: 11/25/2024, Expires: 03/27/2025NOMS HealthcareComment on above:Expected: 11/25/2024, Expires: 03/27/2025Start: 11-25-2024 End: 93-92-2923Zcsyvsm encounter procedureNOMS Alba OBGYNComment on above: ArrivedStart: 47-81-7287ZEREO-19 Vaccine ()COVID-19 Vaccine ()NOMS HealthcareStart: 28-36-6331Oabsgkfuo vaccinationNOMS HealthcareStart: 10-28-2024 End: 84-46-3205Vxdratg encounter procedureNOMS BCP OBComment on above:Arrived Start: 10-28-2024 End: lead ECGECG 12 lead unit performed ECG Routine Heart palpitations Expected: 10/28/2024 (Approximate), Expires: 10/28/2025NOMD HealthcareComment on above:Expected: 10/28/2024 (Approximate), Expires: 10/28/2025Start: 10-28-2024 End: 90-60-5322WIF panel - Blood by Automated countCBC Lab Routine Diabetes mellitus screening Expected: 10/28/2024 (Approximate), Expires: 10/28/2025[facility] Work Phone: comment on above:Expected: 10/28/2024 (Approximate), Expires: 10/28/2025Start: 10-28-2024 End: 57-46-6465Qkeksbozladkit 2D completeEchocardiogram 2D complete Echocardiography Routine Heart palpitations Expected: 10/28/2024 (Approximate), Expires: 10/28/2026NOMD HealthcareComment on above:Expected: 10/28/2024 (Approximate), Expires: 10/28/2026Start: 10-28-2024 End: 37-98-4565Ktckwhaxedu of glucose 1 hour after glucose challenge for glucose tolerance testGlucose tolerance, 1 hour Lab Routine Diabetes mellitus screening Expected: 10/28/2024 (Approximate), Expires: 10/28/2025NOMS HealthcareComment on above:Expected: 10/28/2024 (Approximate), Expires: 10/28/2025Start: 09-30-2024 End: 49-77-6344Sikwoqx encounter yhwlsopmv79/16/2025 3:40 PM EDT Routine [facility] [address] [place] [phone] Doc Thomas, DO [address] [place], [place] [address] Brand[address] [place], [place] [id number] NOMS BCP OBStart: 09-30-2024 End: 00-46-6463Osuwmffybdjd / ancillary services aqryoboddi76/16/2025 2:30 PM EDT Ancillary Procedure [facility] [address] [place] [address] NOMS BCP OBStart: 09-02-2024 End: 82-93-3373Ictvwhx encounter procedureNOMD BCP OBComment on above:Arrived Start: 09-02-2024 End: 13-24-0657Gidth fetoprotein, maternalAlpha fetoprotein, maternal Lab Routine Second trimester ([facility]) Expected: 09/02/2024 (Approximate), Expires: 11/02/2024NOMD HealthcareComment on above:Expected: 09/02/2024 (Approximate), Expires: 11/02/2024Start: 09-02-2024 End: 69-18-0711NT for pregnancyUS OB 14+ weeks anatomy scan Imaging Routine Screening, , for anatomic survey ([facility]) Expected: 09/02/2024, Expires: 12/03/2024[facility] Work Phone: comment on above:Expected: 09/02/2024, Expires: 12/03/2024Start: 08-05-2024 End: 81-23-7743Qcapzqz encounter procedureNOMD BCP OBComment on above:Arrived Start: 07-16-2024 End: 02-18-3782YOP/RhABO/Rh Lab Routine Missed menses , unspecified gestational age Expected: 07/16/2024 (Approximate), Expires: 07/16/2025NOMD HealthcareComment on above:Expected: 07/16/2024 (Approximate), Expires: 07/16/2025Start: 07-16-2024 End: 85-10-2476Bzvee type and Indirect antibody screen panel - BloodType and screen Lab Routine Missed menses , unspecified gestational age Expected: 07/16/2024 (Approximate), Expires: 07/16/2025NOMD HealthcareComment on above:Expected: 07/16/2024 (Approximate), Expires: 07/16/2025Start: 07-16-2024 End: 87-82-3804Hcjsq of abuse panel - Urine by Screen methodRapid drug screen, urine Lab Routine , unspecified gestational age Encounter for supervision of normal first in first trimester Expected: 07/16/2024 (Approximate), Expires: 07/16/2025NOMD HealthcareComment on above:Expected: 07/16/2024 (Approximate), Expires: 07/16/2025Start: 07-10-2024 End: 70-61-4750ZJ Pelvis transvaginalUS OB transvaginal Imaging Routine Missed menses Expected: 07/10/2024, Expires: 10/09/2024[facility] Work Phone: comment on above:Expected: 07/10/2024, Expires: 10/09/2024Start: 02-21-2024 End: 62-68-1600Qrckpln encounter gtknnsvot15/06/2024 8:00 AM EST Office Visit [facility] [address] [place] [address] Myron Marroquin DO [address] [place] [address] NOMS SWS ORTHOAOStart: 02-19-2024 End: 39-96-9325Dyflvox encounter /04/2024 3:30 PM EST Office Visit [facility] [address] [facility] [address] [place] [address] Rosalie aPyne MD [address] [facility] [address] [place] [address] (Fax) 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CMS/HCC); Chronic fatigue; Cigarette smoker; Non morbid obesity due to excess caloriesNOMS CI FM 100Comment on above: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CMS/HCC); Chronic fatigue; Cigarette smoker; Non morbid obesity due to excess caloriesStart: 02-19-2024 End: 92-45-0437Wlxwnko, randomInsulin, random Lab Routine Non morbid obesity due to excess calories Postural orthostatic tachycardia syndrome (POTS) Expected: 02/19/2024 (Approximate), Expires: 02/18/2025[facility] Work Phone: Comment on above:Expected: 02/19/2024 (Approximate), Expires: 02/18/2025Start: 01-17-2024 End: 68-14-3547ndcpbyxoha56/01/2024 2:30 PM EDT Treatment [facility] [address] [place] [phone] Stefano Nagy, PT [address] [place] [address] NOMS FB PTStart: 01-14-2024 End: 04-64-3099broymqolnw03/29/2024 3:30 PM EDT Treatment [facility] [address] [place] [phone] Nereyda Vieira, [employer] [address] [place] [address] NOMS FB PTStart: 01-10-2024 End: 15-25-1359whwoopqrky73/25/2024 2:30 PM EDT Treatment [facility] [address] [place] [phone] Stefano Nagy, PT [address] [place] [address] NOMS FB PTStart: 01-07-2024 End: 99-77-1466xkabjiodeb20/22/2024 3:30 PM EDT Treatment [facility] [address] [place] [phone] Stefano Nagy, PT [address] [place] [address] NOMS FB PTStart: 01-03-2024 End: 01-82-9487swshvkpstl33/18/2024 2:30 PM EDT Treatment [facility] [address] [place] [phone] Stefano Nagy, PT [address] [place] [address] NOMS FB PTStart: 12-31-2023 End: 82-29-0176dddqhupjol16/15/2024 3:30 PM EDT Treatment [facility] PT [address] [place] [phone] Jennifer Dozier PTANOMS FB PTStart: 12-27-2023 End: 21-97-9716wdwwimrajpANGI FB PTComment on above:ArrivedStart: 12-24-2023 End: 91-56-1156vsysmnorui68/08/2024 3:00 PM EDT Treatment [facility] [address] [place] [id number] Nereyda Vieira, [employer] [address] [place] [address] [facility] FB PTStart: 12-17-2023 End: 36-81-4974fvjztlqvwf70/01/2024 3:00 PM EDT Treatment [facility] PT [address] [place] [phone] Stefano Nagy, PT [address] [facility] [address] N[facility] FB PTStart: 12-09-2023 End: 85-53-2856Cpickbj encounter procedureNOMS [facility] ORTHOAOComment on above: ArrivedStart: 12-03-2023 End: 97-69-0639omuxwerfwf11/17/2024 3:30 PM EDT Treatment [facility] [address] [facility] [address] Angela Vieiratchen, [employer] [address] [place] [address] ArrivedNOMS FB PT Comment on above:ArrivedStart: 11-19-2023 End: 53-18-7153phfwgqhyunEFZQ FB PTComment on above:Acute pain of left knee (Primary Dx); Status post arthroscopic reconstruction of anterior cruciate ligament of left knee using quadricepstendon autograftStart: 15-74-2701Ytzwvmsfb vaccination Influenza Vaccine (#1)[facility] HealthcareStart: 13-29-9129EkyvtlnwzThe Surgical Hospital at Southwoodstart: 05-07-2023 End: 98-98-1425Utaksle encounter vknhlhagc29/20/2024 11:10 AM EST Office Visit [facility] OB [address] [place] [phone] Doc Thomas, DO [address] [place] [address] NOMS BCP OBStart: 05-03-2023 End: 56-68-4578Xpqotki encounter zwflxopul26/16/2024 11:00 AM EST Office Visit [facility]THOA[facility] [address] [place] [phone] Myron Marroquin, DO [address] [place] [address] N[facility] SWS ORTHOAOStart: 04-23-2023 End: 73-05-9940Prfpwjk encounter toogibcyq17/06/2024 8:00 AM EST Procedure Visit [facility] EXT Myron Huerta, DO [address] [place] [address] NOMS EXT DEPStart: 04-22-2023 End: 44-29-5098skrnyafysn51/05/2024 2:30 PM EST Evaluation [facility] PT [address] [place] [address] Stefano Nagy, PT [address] [place] [address] NOMS FB PTStart: 67-94-6900Xxohaknjz vaccinationInfluenza Vaccine (#1)[facility] HealthcareStart: 15-74-1858AKnM/Tdap/Td vaccine (5 - Td or Tdap)DTaP/Tdap/Td vaccine (5 - Td or Tdap)[facility]Start: 45-71-5892Xvjjsrldm vaccinationFlu vaccine (#1)[facility] CenterStart: 55-07-5868Itokueiei for malignant neoplasm of cervixThe [facility] Start: 95-97-0710KXaA/Tdap/Td vaccine (1 - Tdap)DTaP/Tdap/Td vaccine (1 - Tdap) [facility] Work Phone: start: 29-46-8800Kvplapcvbyor Vaccine: Pediatrics (0 to 5 Years) and At-Risk Patients (6 to 64 Years) (1 of 2 - PCV)Pneumococcal Vaccine: Pediatrics (0 to 5 Years) and At-Risk Patients (6 to 64 Years) (1 of 2 - PCV)[facility] HealthcareStart: 31-54-8482Uxfladxft for Chlamydia trachomatis Chlamydia screenThe Jewish Hospital HealthStart: 73-15-2956HUV screeningHIV screenThe Jewish Hospital Health Start: 02-86-5811Ijzzsllri vaccine (2 of 2 - 2-dose childhood series)Varicella vaccine (2 of 2 - 2-dose childhood series)[facility] CenterStart: 03-33-3448VFPLW-19 Vaccine (1)COVID-19 Vaccine (1)[employer] Phone: start: 36-00-8458Qanhmkcfoi ScreenDepression Screen [facility]: 11-21-0637SPX vaccine (1 - 2-dose series)HPV vaccine (1 - 2- dose series)[facility]: 07-11-1304WEKNK-19 Vaccine (1)COVID-19 Vaccine (1)[facility]: 32-55-0717Rrmowogxl vaccine (1 of 2 - 2-dose childhood series)Varicella vaccine (1 of 2 - 2-dose childhood series)[facility] Phone: start: 67-29-9819Guyuojvxx C screeningHepatitis C screenMercy HealthBacteria identified in Urine by CultureUrine culture Microbiology Routine Missed menses Ordered: 07/16/2024[facility] HealthcareComment on above:Ordered: 07/16/2024BC W Auto Differential panel - BloodCBC and differential Lab Routine Missed menses , unspecified gestational age Ordered: 07/16/2024[facility] HealthcareComment on above:Ordered: 07/16/2024HLAMYDIA TRACHOMATIS (GENITO/STI)CHLAMYDIA TRACHOMATIS (GENITO/STI) Lab Routine STD exposure Ordered: 10/28/2024[facility] HealthcareComment on above:Ordered: 10/28/2024 Cytology Cervical or vaginal smear or scraping studyPap Smear Pathology and Cytology Routine Well woman exam with routine gynecological exam Ordered: [facility] HealthcareComment on above:Ordered: 10/28/2024Hemoglobin A1c/Hemoglobin.total in BloodHemoglobin A1c Lab Routine Missed menses , unspecified gestational age Ordered: 07/16/2024[facility] HealthcareComment on above: Ordered: 07/16/2024Hepatitis B virus surface Ag [Presence] in Serum or Plasma by ImmunoassayHepatitis B surface antigen Lab Routine Missed menses , unspecified gestational age Ordered: 07/16/2024[facility] HealthcareComment on above: Ordered: 07/16/2024Hepatitis C virus Ab [Presence] in Serum or Plasma by ImmunoassayHepatitis C antibody Lab Routine Missed menses , unspecified gestational age Ordered: 07/16/2024[facility] HealthcareComment on above:Ordered: 07/16/2024HIV-1/HIV-2 antigen/antibody combination immunoassayHIV-1 and HIV-2 antibodies Lab Routine Missed menses , unspecified gestational age Ordered: 07/16/2024[facility] HealthcareComment on above:Ordered: 07/16/2024Neisseria gonorrhoeae DNA [Presence] in Unspecified specimen by QUEENIE with probe detection Neisseria gonorrhea DNA probe, direct Lab Routine STD exposure Ordered: 10/28/2024[facility] HealthcareComment on above:Ordered: 10/28/2024Patient Education Hiatal hernia Hemorrhoids Gastritis Know your [facility] Work Phone: Reagin Ab [Presence] in Serum by RPRRPR Lab Routine Missed menses , unspecified gestational age Ordered: 07/16/2024[facility] HealthcareComment on above:Ordered: 07/16/2024Rubella antibody, IgGRubella antibody, IgG Lab Routine Missed menses , unspecified gestational age Ordered: 07/16/2024[facility] HealthcareComment on above:Ordered: 07/16/2024 SURESWAB(R) ADVANCED VAGINITIS PLUS, TMASURESWAB(R) ADVANCED VAGINITIS PLUS, TMA Pathology and Cytology Routine STD exposure Ordered: 10/28/2024[facility] Healthcare Comment on above:Ordered: 10/28/2024 End: 23-94-9133Uucmjzkrqwh [Units/volume] in Serum or PlasmaTSH Lab Routine 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CMS/HCC) p3wrmih for 6 Occurrences starting 08/05/2024 until 08/05/2025[facility] Healthcare Work Phone: comment on above:c7xwbcw for 6 Occurrences starting 08/05/2024 until 08/05/2025US Pelvis transvaginalUS OB transvaginal Imaging Routine Missed menses 07/16/2024 1:59 PM EDThe [facility] Immunizations Immunization DateImmunizationNotesCare EbfpgarnTmtsbgqw53-18-4125jpfazshtp B vaccine, adult dosageKyle Lilo PT Work Phone: [facility] HealthcareRwvryenqni38-30-9839banhumhbyhyzi oligosaccharide (groups A, C, Y and W-135) diphtheria toxoid conjugate vaccine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 [address] [facility] [place] [address] (Fax) PCP - [place] [facility]06/16/20Te MemberRelationshipSpecialtyStart DateEnd Date Rosalie Payne MD [address] [facility] [address] [place] [address] (Fax) PCP - [facility]07/24/22 Rosalie Payne MD [address] [facility] [address] [place] [address] (Fax) [facility] [facility]20Te MemberRelationshipSpecialtyStart DateEnd Date Rosalie Payne MD [address] [facility] [address] [place] [address] (Fax) PCP - [facility]07/24/22 Rosalie Payne MD [address] [address] [place] [address] (Fax) PCP - [place] [facility]06/16/20 Goals (unrecognized section and content) Goals [...] BE BASED ON THE PRIMARY CLINICAL RECORDS. [employer] [facility]. provides no warranty or guarantee of the accuracy or completeness of information in this document.
[2025-02-09 15:41] LABS: Hematocrit 34.2 % (36.0-48.0); Hemoglobin 11.9 g/dL (12.0-16.0); Mean Corpuscular HGB Conc 34.8 g/dL (29.9-35.2); Mean Corpuscular Hemoglobin 31.6 pg (26.7-34.0); Mean Corpuscular Volume 91.0 fL (81.0-99.0); Platelet Count 164 10^3/uL (150-450); Red Blood Count 3.76 10^6/uL (4.20-5.40); White Blood Count 8.2 10^3/uL (4.0-11.0)
[2025-02-09 15:52] LABS: Cannabinoid Screen Urine NEGATIVE (NEGATIVE); Methamphetamines Screen Urine NEGATIVE (NEGATIVE); Tricyclic Antidepressant Urine NEGATIVE (NEGATIVE)
[2025-02-09] MEDS: 0.9 % SODIUM CHLORIDE 1,000 ML 1000 ML IV (18:26)
[2025-02-09] MEDS: ROPIVACAINE HCL/PF 400 MG/200 ML PREMIX 10 MG EPIDURAL (19:10)
[2025-02-09] MEDS: 0.9 % SODIUM CHLORIDE 1,000 ML 125 ML IV (19:15)
[2025-02-09] MEDS: OXYTOCIN/0.9 % SODIUM CHLORIDE 20 UNITS/1,000 ML PLAST..BAG 125 UNIT IV (19:56)
--- NOTE | 2025-02-09 20:01 | PM.OBPRCVD ---
Procedure Intrapartal events: None Induction method: per pitocin protocol Delivery augmentation: rupture of membranes and pitocin Delivery monitor: external FHT and external uterine Route of delivery: Episiotomy Description: none L&D Laceration Description: none Delivery repair: Vicryl Estimated blood loss (mL): 300 Anesthesia type: Epidural Disposition: floor Infant Delivery date: 02/09/25 Gender: female presentation: vertex Placental delivery description: Spontaneous cord description: 3 Vessels
[2025-02-09] MEDS: BENZOCAINE/MENTHOL 85 GRAM SPRAY BOTTLE 1 APPLIC TOPICAL (22:37)
[2025-02-09] MEDS: GLYCERIN/WITCH HAZEL PADS 1 PAD TOPICAL (22:37)
[2025-02-09] MEDS: IBUPROFEN 600 MG TABLET PO (22:38)
[2025-02-10 04:08] VITALS: BP 109/61; PULSE 65
[2025-02-10 04:15] VITALS: TEMP 36.6
[2025-02-10 06:05] LABS: Hematocrit 30.6 % (36.0-48.0); Hemoglobin 10.5 g/dL (12.0-16.0); Immature Granulocytes Abs Auto 0.02 10^3/uL (0.00-0.03); Immature Granulocytes Pct Auto 0.2 % (0.0-0.5); Lymphocytes Absolute Auto 1.2 10^3/uL (1.2-3.8); Mean Corpuscular HGB Conc 34.3 g/dL (29.9-35.2); Mean Corpuscular Hemoglobin 31.8 pg (26.7-34.0); Mean Corpuscular Volume 92.7 fL (81.0-99.0); Platelet Count 148 10^3/uL (150-450); Red Blood Count 3.30 10^6/uL (4.20-5.40); White Blood Count 9.8 10^3/uL (4.0-11.0)
--- NOTE | 2025-02-10 07:46 | PM.OBPN ---
OB - PN: Subj Subjective Patient comments: no complaints and pain well controlled status: doing well Exam Constitutional Vital Signs, click to edit/add: Last Vital Signs Temp 97.8 F 02/10/25 04:15 Pulse 65 02/10/25 04:08 Resp 16 02/10/25 04:15 BP 109/61 02/10/25 04:08 O2 Del Method Room Air 02/10/25 04:15 Documenting provider has reviewed patient's vital signs: yes Common normals: no apparent distress Respiratory Common normals: normal respiratory effort and clear to auscultation bilaterally Cardio Common normals: regular rate and regular rhythm GI Common normals: Normal to inspection, nondistended, normoactive bowel sounds present Extremity Common normals: no clubbing, cyanosis or edema and no calf tenderness Results Labs Labs: Short CBC 02/09/25 02/10/25 Range/Units 15:20 05:59 WBC 8.2 9.8 (4.0-11.0) 10^3/uL Hgb 11.9 L 10.5 L (12.0-16.0) g/dL Hct 34.2 L 30.6 L (36.0-48.0) % Plt Count 164 148 L (150-450) 10^3/uL OB - PN: A/P Plan - Vaginal Delivery day: 1 Plan: routine care Time Spent with Patient Time: Total time spent is greater than 50% in coordination of care (as documented) at patient's floor/unit and/or counseling patient: Total time spent with greater than 50% in coordination of care (as documented) at patient's floor/unit and/or counseling patient: less than 15 minutes
[2025-02-10 08:31] VITALS: BP 120/74; PULSE 85; TEMP 36.6
[2025-02-10] MEDS: IBUPROFEN 600 MG TABLET PO ×2 (08:33→15:35)
[2025-02-10] MEDS: DOCUSATE SODIUM 100 MG CAPSULE PO (08:33)
--- NOTE | 2025-02-10 11:10 | SWNOTE1 ---
BHAVNA spoke with case management and Eri from [employer] ran insurance and pt is on her father's insurance and baby can not be on grandparents insurance. SW stopped over to speak with pt. Pt confirmed she is on her father's insurance. She stated her has an HSA account and is looking in to things. She is putting her 2 weeks notice in at her current job, they do not offer insurance. She is likely to start a new job in March that she will put her baby and her other child on that insurance. Pt does not have any kind of Medicaid either. BHAVNA to update [employer]. SW confirmed pt's phone number and let her know [employer] will call with any further questions. BHAVNA informed NEHEMIAS, who informed Eri at [employer]
[2025-02-10 16:47] VITALS: BP 115/73; PULSE 70
[2025-02-11] MEDS: DOCUSATE SODIUM 100 MG CAPSULE PO ×2 (00:02→08:26)
[2025-02-11] MEDS: IBUPROFEN 600 MG TABLET PO ×2 (00:02→08:26)
[2025-02-11 00:05] VITALS: BP 130/79; PULSE 67; TEMP 36.4
[2025-02-11 08:00] VITALS: TEMP 36.4
[2025-02-11 08:40] VITALS: BP 120/68; PULSE 71
--- NOTE | 2025-02-11 12:16 | P.OBPN_ITS ---
OB - PN: Subj Subjective Patient comments: no complaints [place] status: doing well and well Exam Constitutional Vital Signs, click to edit/add: Last Vital Signs Temp 97.6 F 02/11/25 08:00 Pulse 71 02/11/25 08:40 Resp 16 02/11/25 08:00 BP 120/68 02/11/25 08:40 O2 Del Method Room Air 02/11/25 00:05 Common normals: no apparent distress General appearance: cooperative and comfortable Chest Common normals: inspection of chest normal, inspection of breasts normal and palpation of breasts normal Nipple/areola: nipples/areola normal Respiratory Common normals: normal respiratory effort Cardio Common normals: regular rate and regular rhythm GI Common normals: soft to palpation and non-tender Bimanual exam- vagina & uterus: uterus non-tender (firm and below umbilicus) Manual OB Exam: deferred OB - PN: A/P Assessment and Plan (1) Term delivered: Plan stable on PPD 2, ready for discharge home s/p Plan - Vaginal Delivery day: 2 Plan: routine care, discharge home, follow up 6 weeks and other Comment: routine Time Spent with Patient Time: Total time spent is greater than 50% in coordination of care (as documented) at patient's floor/unit and/or counseling patient: Total time spent with greater than 50% in coordination of care (as documented) at patient's floor/unit and/or counseling patient: less than 15 minutes Hospital Course Delivery date: 02/09/25 Time of : 19:53 Discharge date: 02/11/25 Gender: female Web Marketing Intern/Oncology Patient Navigator present at delivery: No Resuscitation Resuscitation: none DS: Summary Hospital Course Hospital Course: routine course Status at Discharge Functional status at discharge: independent ambulation Overall status at discharge: patient is back to baseline Time Spent with Patient Time attestation: Total time spent providing and/or coordinating discharge services: Time spent: less than 30 minutes
--- NOTE | 2025-02-11 12:28 | PM.OBPN ---
Exam Constitutional Vital Signs, click to edit/add: Last Vital Signs Temp 97.6 F 02/11/25 08:00 Pulse 71 02/11/25 08:40 Resp 16 02/11/25 08:00 BP 120/68 02/11/25 08:40 O2 Del Method Room Air 02/11/25 00:05 OB - PN: A/P Time Spent with Patient Time: Total time spent is greater than 50% in coordination of care (as documented) at patient's floor/unit and/or counseling patient: Total time spent with greater than 50% in coordination of care (as documented) at patient's floor/unit and/or counseling patient: less than 15 minutes
== END 2025-02-11 13:34 | disposition home or self-care (01) | DRG 807 ==
PROVIDERS: Admitting Provider Obstetrics & Gynecology; PCP Family Medicine; Visit Provider Obstetrics & Gynecology
DX: O99.284 Endocrine, nutritional and metabolic diseases complicating childbirth (principal); Z37.0 Single live birth; E06.3 Autoimmune thyroiditis; O99.334 Smoking (tobacco) complicating childbirth; F17.210 Nicotine dependence, cigarettes, uncomplicated; Z3A.38 38 weeks gestation of pregnancy; O26.893 Other specified pregnancy related conditions, third trimester; Z67.11 Type A blood, Rh negative
CPT/HCPCS: 36415; 59050; 59410; 80307; 85025; 85027; 86850; 86900; 86901; J2405; J2795